=== PATIENT | male | born 1990 | race Caucasian/White ===

== ENCOUNTER 2020-06-02 03:09 | Inpatient (IN) | payer OTHER, SELFPAY ==
--- OUTSIDE RECORDS SUMMARY | 2020-06-02 03:11 | XMS REPORT | Clinical Summary ---
:1990 Author Organization [facility] Address [address] [place] [id number] Care Team Providers Name Role Phone Asked, No Pcp Primary Care Provider Unavailable Allergies No Known Active Allergies Medications Medication Sig Dispensed Refills Start Date End Date Status QUEtiapine (SEROquel) Take 100 mg by 0 Active 100 MG tablet mouth 2 (two) times a day. Active Problems Problem Noted Date Suicidal ideation 01/14/2016 Medical History Medical History Date Comments Schizophrenia (HCC) Seizures (HCC) Drug abuse (HCC) Social History Tobacco Use Types Packs/Day Years Used Date Current Every Day Smoker Cigarettes 1.5 Smokeless Tobacco: Never Used Alcohol Use Drinks/Week oz/Week Comments Yes PT reports MRE: ETOH 3-4 months ago. Drug of choice = meth (smoked) M RE: 09-27-18. Sex Assigned at Date Recorded Not on file Last Filed Vital Signs Not on file Plan of Treatment Health Maintenance Due Date Last Done Comments COVID-19 VACCINE (1 of 2) 2004 INFLUENZA VACCINE 11/30/2019 Results Not on fileafter 06/02/2019 Insurance Payer Benefit Plan / Subscriber ID Effective Dates Phone Addre ss Type Group MEDICAID MEDICAID [id number] 2017-Present [place] [facility] MEDICAID [facility] COMM [id number] 2018-Present HMO [employer] Anna DEBBY y (Home) 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
--- OUTSIDE RECORDS SUMMARY | 2020-06-02 03:15 | XMS REPORT | Continuity of Care Document ---
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 12/14 # /2019 [facility] HEMATOLOGY Lymphocytes 1.3 1.0 - 5.5 12/14 # /2019 [facility] HEMATOLOGY Monocytes # 0.6 0.0 - 0.8 12/14 [facility] TOXICOLOGY Ethanol Lvl <3 12/14 [facility] TOXICOLOGY Etoh (%) <0.003 12/14 [facility] TOXICOLOGY Acetaminoph <2 10 - 20 12/14 Lvl (12/14/19 11:57 PM) [facility] TOXICOLOGY Salicylate 3.4 0.0 - 30.0 12/14 Lvl /2019 [facility] CARDIAC Total CK 815 12 - 191 04/18 [place] ENZYMES /[facility] ELECTROLYT AGAP 14.8 10.0 - 04/18 [facility] ES 20.0 [facility] ELECTROLYT eGFR 93 04/18 Result [facility] /2017 Comment: The Medical eGFR is Center calculated using the CKD-EPI formula. In most young, healthy individuals the eGFR will be >90 mL/min/1.73m2 . The eGFR declines with age. An eGFR of 60-89 may be normal in some populations, particularly the elderly, for whom the CKD-EPI formula has not been extensively validated. Use of the eGFR is not recommended in the following populations:< br/>
Brie viduals with unstable creatinine concentration s, including patients and those with serious co-morbid conditions.<b r/>
Patie nts with extremes in muscle mass or diet.

The data above are obtained from the National Kidney Disease Education Program (NKDEP) which additionally recommends that when the eGFR is used in patients with extremes of body mass index for purposes of drug dosing, the eGFR should be multiplied by the estimated BMI. ELECTROLYT Creatinine 1.07 0.50 - 04/18 [facility] Lvl 1.40 [facility] ELECTROLYT Sodium Lvl 135 135 - 145 04/18 [facility]2017 [facility] ELECTROLYT Potassium 3.8 3.5 - 5.1 04/18 [facility] ELECTROLYT Calcium Lvl 9.3 8.5 - 10.5 04/18 [facility] ELECTROLYT CO2 23 24 - 32 04/18 [facility]2017 [facility] ELECTROLYT Chloride Lvl 101 95 - 109 04/18 [place] [facility] ELECTROLYT Glucose Lvl 94 70 - 99 04/[address] ELECTROLYT BUN 17 7 - 22 04/18 [facility]2017 [facility] HEMATOLOGY MCHC 33.6 32.0 - 04/18 [place] 36.0 [facility] HEMATOLOGY RDW 14.7 11.5 - 04/18 [place] 14.5 [facility] HEMATOLOGY MCH 27.9 27.0 - 04/18 [place] 31.0 [facility] HEMATOLOGY MCV 83.1 80.0 - 04/18 [facility] 94.0 [facility] HEMATOLOGY MPV 9.9 7.4 - 10.4 04/[address] HEMATOLOGY Platelet 165 133 - 450 04/18 [facility]2017 [facility] HEMATOLOGY RBC 4.63 4.70 - 04/18 [place] 6.10 [facility] HEMATOLOGY Hgb 12.9 14.0 - 04/18 [place] 18.0 [facility] HEMATOLOGY Hct 38.4 42.0 - 12/19 [place] 54.0 /2018 [facility] HEMATOLOGY WBC 8.2 3.7 - 10.4 04/18 [facility]2018 [facility] HEMATOLOGY Monocytes # 0.9 0.0 - 0.8 04/18 [facility] s /2018 [facility] HEMATOLOGY Eosinophils 0.1 0.0 - 0.5 04/18 [facility] # /2018 [facility] HEMATOLOGY Lymphocytes 1.1 1.0 - 5.5 04/18 [facility] # /2018 [facility] HEMATOLOGY Neutrophils 6.1 1.5 - 8.1 04/18 [facility] # /2018 [facility] HEMATOLOGY Monocytes 11.1 2.0 - 12.0 04/[address] HEMATOLOGY Eosinophils 0.9 0.0 - 4.0 04/18 [facility] /2018 [facility] HEMATOLOGY Basophils 0.2 0.0 - 1.0 04/[address] HEMATOLOGY Segs 74.9 45.0 - 04/18 [facility] 75.0 [facility] HEMATOLOGY Lymphocytes 12.9 20.0 - 04/18 [facility] 40.0 [facility] TOXICOLOGY Salicylate <1.7 0.0 - 30.0 04/18 [facility] TOXICOLOGY Acetaminoph 3 10 - 20 04/18 [facility] /2018 [facility] CARDIAC Troponin-I <0.02 0.00 - 04/13 ENZYMES 0. [facility] CHEM PANEL Phosphorus 3.7 2.5 - 4.5 04/13 [facility] CHEM PANEL Magnesium 2.1 1.8 - 2.4 04/13 Lvl [facility] ELECTROLYT AGAP 11.0 10.0 - 04/13 ES 20.0 [facility] ELECTROLYT Creatinine 0.90 0.50 - 04/13 [facility] Lvl 1.40 [facility] ELECTROLYT eGFR 114 04/13 [facility] Comment: The [facility] eGFR is calculated using the CKD-EPI formula. In most young, healthy individuals the eGFR will be >90 mL/min/1.73m2 . The eGFR declines with age. An eGFR of 60-89 may be normal in some populations, particularly the elderly, for whom the CKD-EPI formula has not been extensively validated. Use of the eGFR is not recommended in the following populations:< br/>
Brie viduals with unstable creatinine concentration s, including patients and those with serious co-morbid conditions.<b r/>
Patie nts with extremes in muscle mass or diet.

The data above are obtained from the National Kidney Disease Education Program (NKDEP) which additionally recommends that when the eGFR is used in patients with extremes of body mass index for purposes of drug dosing, the eGFR should be multiplied by the estimated BMI. ELECTROLYT Calcium Lvl 8.2 8.5 - 10.5 04/13 ES [facility] ELECTROLYT CO2 25 24 - 32 04/13 ES [facility] ELECTROLYT Chloride Lvl 108 95 - 109 04/13 [facility] ELECTROLYT Potassium 4.0 3.5 - 5.1 04/13 ES Lvl [facility] ELECTROLYT Sodium Lvl 140 135 - 145 04/13 [facility] ELECTROLYT BUN 11 7 - 22 04/13 ES [facility] ELECTROLYT Glucose Lvl 85 70 - 99 04/13 [facility] HEMATOLOGY MCH 27.9 27.0 - 04/13 31.0 [facility] HEMATOLOGY MCHC 33.5 32.0 - 04/13 36.0 [facility] HEMATOLOGY Hct 36.7 42.0 - 04/13 54.0 [facility] HEMATOLOGY MCV 83.1 80.0 - 04/13 94.0 [facility] HEMATOLOGY RBC 4.42 4.70 - 04/13 6.10 [facility] HEMATOLOGY Hgb 12.3 14.0 - 04/13 18.0 [facility] HEMATOLOGY WBC 8.5 3.7 - 10.4 04/13 [facility] HEMATOLOGY MPV 9.5 7.4 - 10.4 04/13 [facility] HEMATOLOGY RDW 14.4 11.5 - 04/13 14.5 [facility] HEMATOLOGY Platelet 164 133 - 450 04/13 [facility] HEMATOLOGY Lymphocytes 1.2 1.0 - 5.5 04/13 # /2017 [facility] HEMATOLOGY Monocytes # 0.6 0.0 - 0.8 04/13 [facility] HEMATOLOGY Eosinophils 0.2 0.0 - 0.5 04/13 # /2017 [facility] HEMATOLOGY Basophils # 0.0 0.0 - 0.2 04/13 [facility] HEMATOLOGY Eosinophils 2.3 0.0 - 4.0 04/13 [facility] HEMATOLOGY Basophils 0.3 0.0 - 1.0 04/13 MH /2017 [facility] HEMATOLOGY Neutrophils 6.5 1.5 - 8.1 04/13 MH # /2017 [facility] HEMATOLOGY Lymphocytes 14.5 20.0 - 04/13 MH 40.0 /2017 [facility] HEMATOLOGY Monocytes 6.7 2.0 - 12.0 04/13 [facility] HEMATOLOGY Segs 76.2 45.0 - 04/13 MH 75.0 [facility] PARATHYROI Ca Norm WB 1.13 1.05 - 04/13 D PROFILE . [facility] PARATHYROI Ca Ion WB 1.17 1.05 - 04/13 D PROFILE 05.25 [facility] URINE AND UA Sq Epi None Seen Few 04/13 STOOL (04/13/18 12:21 AM) /[place] URINE AND UA WBC 1 0 - 5 04/13 STOOL [facility] URINE AND UA RBC 1 0 - 2 04/13 STOOL [facility] URINE AND UA [place] Yeast Occasional None Seen 04/13 STOOL /HPF /HPF /2017 [facility] URINE AND UA Color Ltyellow 04/13 STOOL [facility] URINE AND UA Spec Grav 1.009 <=1.030 04/13 STOOL [facility] URINE AND UA Turbidity Clear Clear 04/13 [facility] (04/13/18 12:21 AM) /[place] URINE AND UA <=1.0 0.1 - 1.0 04/13 STOOL Urobilinogen /2017 [facility] URINE AND UA Ketones Negative Negative 04/13 STOOL *NA* /2017 [facility] (04/13/18 12:21 AM) URINE AND UA Glucose Negative Negative 04/13 STOOL *NA* /2017 [facility] (04/13/18 12:21 AM) URINE AND UA Leuk Est Trace Negative 04/13 STOOL *ABN* /2017 [facility] (04/13/18 12:21 AM) URINE AND UA Nitrite Negative Negative 04/13 [facility]OOL (04/13/18 12:21 AM) /[place] URINE AND UA Bili Negative Negative 04/13 STOOL *NA* /2017 [facility] (04/13/18 12:21 AM) URINE AND UA pH 7.0 5.0 - 8.0 04/13 STOOL /2018 [facility] URINE AND UA Blood Negative Negative 04/13 STOOL (04/13/18 12:21 AM) /[place] URINE AND UA Protein Negative Negative 04/13 STOOL (04/13/18 12:21 AM) /2017 [place] CARDIAC Troponin-I <0.02 0.00 - 04/13 ENZYMES 0.40 [facility] IMMUNOLOGY HIV Ag/Ab Negative Negative 04/13 4th Gen *NA* [facility] (04/12/18 11:42 PM) BACTERIAL MRSA by PCR Negative 04/13 - SEROLOGY (04/12/18 11:18 PM) /2017 [place] DRUG U Odalys Scr Negative Negative 04/12 SCREEN *NA* [facility] (04/12/18 5:22 PM) DRUG U Benzodiaz Negative Negative 04/12 MH SCREEN Scr *NA [facility] (04/12/18 5:22 PM) DRUG U Amph Scr Negative Negative 04/12 SCREEN *NA [facility] (04/12/18 5:22 PM) DRUG U Cocaine Negative Negative 04/12 SCREEN Scr *NA [facility] (04/12/18 5:22 PM) DRUG U Opiate Scr Negative Negative 04/12 SCREEN *NA* [facility] (04/12/18 5:22 PM) DRUG UDS Note See Note 04/12 SCREEN (04/12/18 5:22 PM) /[address] [facility] DRUG U Cannab Scr Negative Negative 04/12 SCREEN *NA* [facility] (04/12/18 5:22 PM) DRUG U Negative Negative 04/12 SCREEN Phencyclidin *NA [facility] e Scr (04/12/18 5:22 PM) CARDIAC Troponin-I 0.02 0.00 - 04/12 ENZYMES 0.40 [facility] CARDIAC Total CK 50 12 - 191 04/12 ENZYMES /2017 [facility] CHEM PANEL eGFR 120 04/12 Result Comment: The [facility] eGFR is calculated using the CKD-EPI formula. In most young, healthy individuals the eGFR will be >90 mL/min/1.73m2 . The eGFR declines with age. An eGFR of 60-89 may be normal in some populations, particularly the elderly, for whom the CKD-EPI formula has not been extensively validated. Use of the eGFR is not recommended in the following populations:< br/>
Brie viduals with unstable creatinine concentration s, including patients and those with serious co-morbid conditions.<b r/>
Patie nts with extremes in muscle mass or diet.

The data above are obtained from the National Kidney Disease Education Program (NKDEP) which additionally recommends that when the eGFR is used in patients with extremes of body mass index for purposes of drug dosing, the eGFR should be multiplied by the estimated BMI. CHEM PANEL AST 17 0 - 37 04/12 [facility] CHEM PANEL ALT 23 0 - 65 04/12 [place] CHEM PANEL Albumin Lvl 4.0 3.5 - 5.0 04/12 [facility] CHEM PANEL Total 7.4 6.4 - 8.4 04/12 [facility] CHEM PANEL Bili Total 0.3 0.2 - 1.3 04/12 [facility] CHEM PANEL Alk Phos 35 39 - 136 04/12 [facility] CHEM PANEL Chloride Lvl 103 95 - 109 04/12 [facility] CHEM PANEL Calcium Lvl 9.4 8.5 - 10.5 04/12 [place] CHEM PANEL CO2 32 24 - 32 04/12 [facility] CHEM PANEL Potassium 4.2 3.5 - 5.1 04/12 MH Lvl [place] CHEM PANEL Sodium Lvl 139 135 - 145 04/12 [place] CHEM PANEL Creatinine 0.80 0.50 - 04/12 Lvl 1.40 /2017 [facility] CHEM PANEL BUN 12 7 - 22 04/12 [facility] CHEM PANEL Glucose Lvl 93 70 - 99 04/12 [facility] CHEM PANEL A/G Ratio 1.2 0.7 - 1.6 04/12 [place] CHEM PANEL Globulin 3.4 2.7 - 4.2 04/12 [facility] CHEM PANEL B/C Ratio 15 6 - 25 04/12 [facility] CHEM PANEL AGAP 8.2 10.0 - 04/12 MH 20.0 [facility] HEMATOLOGY MCHC 32.1 32.0 - 04/12 MH 36.0 /2017 [facility] HEMATOLOGY MCH 27.4 27.0 - 04/12 MH 31.0 /2017 [facility] HEMATOLOGY Platelet 200 133 - 450 04/12 [facility] HEMATOLOGY RDW 14.4 11.5 - 04/12 MH 14.5 /2017 [facility] HEMATOLOGY MPV 9.1 7.4 - 10.4 04/12 /2017 [facility] HEMATOLOGY WBC 14.0 3.7 - 10.4 04/12 /2017 [facility] HEMATOLOGY RBC 5.18 4.70 - 04/12 MH 6.10 [facility] HEMATOLOGY Hgb 14.2 14.0 - 04/12 MH 18.0 /2017 [facility] HEMATOLOGY Hct 44.2 42.0 - 04/12 MH 54.0 /2017 [facility] HEMATOLOGY MCV 85.3 80.0 - 04/12 MH 94.0 /2017 [facility] HEMATOLOGY Basophils 0.2 0.0 - 1.0 04/12 [facility] HEMATOLOGY Eosinophils 0.1 0.0 - 4.0 04/12 [facility] HEMATOLOGY Monocytes 2.7 2.0 - 12.0 04/12 [facility] HEMATOLOGY Monocytes # 0.4 0.0 - 0.8 04/12 [facility] Lymphocytes 0.6 1.0 - 5.5 04/12 MH # /2017 [facility] HEMATOLOGY Neutrophils 13.0 1.5 - 8.1 04/12 MH # /2017 [facility] HEMATOLOGY Lymphocytes 4.1 20.0 - 04/12 40.0 [facility] HEMATOLOGY Eosinophils 0.0 0.0 - 0.5 04/12 MH # /2017 [facility] Basophils # 0.0 0.0 - 0.2 04/12 [facility] RBC Morph Normal 04/12 (04/12/18 4:38 PM) /[address] [facility] HEMATOLOGY Plt Morph Normal 04/12 (04/12/18 4:38 PM) /[address] [facility] HEMATOLOGY Segs 92.9 45.0 - 04/12 75.0 [facility] Large Plt Moderate None Seen 04/12 *ABN* /2017 [facility] (04/12/18 4:38 PM) CARDIAC Total CK 3725 12 - 191 05/01 [place] ENZYMES /2016 Hospital ELECTROLYT AGAP 14.1 10.0 - 05/01 [facility] ES 20.0 Hospital ELECTROLYT B/C Ratio 11 6 - 25 05/01 [facility] ES [facility] ELECTROLYT Globulin 3.2 2.7 - 4.2 05/01 [facility] ES [facility] ELECTROLYT A/G Ratio 1.3 0.7 - 1.6 05/01 Hospital ELECTROLYT Bili Total 0.4 0.2 - 1.3 05/01 Hospital ELECTROLYT eGFR 102 05/01 Result Comment: The Hospital eGFR is calculated using the CKD-EPI formula. In most young, healthy individuals the eGFR will be >90 mL/min/1.73m2 . The eGFR declines with age. An eGFR of 60-89 may be normal in some populations, particularly the elderly, for whom the CKD-EPI formula has not been extensively validated. Use of the eGFR is not recommended in the following populations:< br/>
Brie viduals with unstable creatinine concentration s, including patients and those with serious co-morbid conditions.<b r/>
Patie nts with extremes in muscle mass or diet.

The data above are obtained from the National Kidney Disease Education Program (NKDEP) which additionally recommends that when the eGFR is used in patients with extremes of body mass index for purposes of drug dosing, the eGFR should be multiplied by the estimated BMI. ELECTROLYT Albumin Lvl 4.2 3.5 - 5.0 05/01 Hospital ELECTROLYT Alk Phos 48 39 - 136 05/01 Hospital ELECTROLYT AST 144 0 - 37 05/01 Hospital ELECTROLYT Glucose Lvl 75 70 - 99 05/01 Hospital ELECTROLYT BUN 11 7 - 22 05/01 Hospital ELECTROLYT Potassium 4.1 3.5 - 5.1 05/01 [facility] ELECTROLYT Creatinine 1.00 0.50 - 05/01 [facility] ELECTROLYT Sodium Lvl 140 135 - 145 05/01 Hospital ELECTROLYT Chloride Lvl 106 95 - 109 05/01 Hospital ELECTROLYT CO2 24 24 - 32 05/01 Hospital ELECTROLYT Total 7.4 6.4 - 8.4 05/01 Hospital ELECTROLYT Calcium Lvl 9.1 8.5 - 10.5 05/01 Hospital ELECTROLYT ALT 52 0 - 65 05/01 Hospital HEMATOLOGY MCV 86.0 80.0 - 05/01 [facility] 94.0 [facility] HEMATOLOGY MCH 29.7 27.0 - 05/01 [facility] 31.0 [facility] HEMATOLOGY Hct 41.0 42.0 - 05/01 [facility] 54.0 [facility] HEMATOLOGY RBC 4.77 4.70 - 05/01 [facility] 6.10 [facility] HEMATOLOGY WBC 8.8 3.7 - 10.4 05/01 [facility] HEMATOLOGY Hgb 14.2 14.0 - 05/01 [facility] 18.0 [facility] HEMATOLOGY Platelet 141 133 - 450 05/01 [facility] HEMATOLOGY MCHC 34.5 32.0 - 05/01 [facility] 36.0 [facility] HEMATOLOGY RDW 13.5 11.5 - 05/01 [facility] 14.5 [facility] HEMATOLOGY MPV 8.9 7.4 - 10.4 05/01 [facility] HEMATOLOGY Lymphocytes 21.1 20.0 - 05/01 [facility] 40.0 [facility] HEMATOLOGY Monocytes 11.7 2.0 - 12.0 05/01 [facility] HEMATOLOGY Lymphocytes 1.8 1.0 - 5.5 05/01 [facility] # /2016 Hospital HEMATOLOGY Segs-Bands # 5.7 1.5 - 8.1 05/01 [facility] HEMATOLOGY Eosinophils 1.7 0.0 - 4.0 05/01 [facility] HEMATOLOGY Basophils 0.8 0.0 - 1.0 05/01 [facility] HEMATOLOGY Basophils # 0.1 0.0 - 0.2 05/01 [facility] HEMATOLOGY Monocytes # 1.0 0.0 - 0.8 05/01 [facility] HEMATOLOGY Eosinophils 0.2 0.0 - 0.5 05/01 [facility] # Hospital HEMATOLOGY Segs 64.7 45.0 - 05/01 [facility] 75.0 Hospital TOXICOLOGY Etoh (%) <0.003 04/07 [facility] TOXICOLOGY Ethanol Lvl <3 04/07 [facility] DRUG UDS Note See Note 04/07 [facility] SCREEN *NA* /2015 [facility] (04/06/16 8:43 PM) DRUG U Opiate Scr Negative Negative 04/07 [facility] S[facility]EN *NA* [facility] (04/06/16 8:43 PM) DRUG U Benzodia Negative Negative 04/07 [facility] SCREEN Scr *NA* [facility] (04/06/16 8:43 PM) DRUG U Cocaine Negative Negative 04/07 [facility] SCREEN Scr *NA* [facility] (04/06/16 8:43 PM) DRUG U Phencyc Negative Negative 04/07 [facility] SCREEN Scr *NA* [facility] (04/06/16 8:43 PM) DRUG U Odalys Scr Negative Negative 04/07 [facility] SCREEN *NA* [facility] (04/06/16 8:43 PM) DRUG U Cannab Scr Negative Negative 04/07 [facility] SCREEN *NA* [facility] (04/06/16 8:43 PM) DRUG U Amph Scr Negative Negative 04/07 [facility] SCREEN *NA* [facility] (04/06/16 8:43 PM) URINE AND UA WBC 3-5 /HPF None Seen 04/07 [facility] STOOL /HPF /2015 [facility] URINE AND UA Sq Epi Rare /LPF Few /LPF 04/07 [facility] ST[facility] /2015 [facility] URINE AND UA RBC 0-2 /HPF 0 - 2 04/07 [facility] STOOL /2015 [facility] URINE AND UA Bacteria Occasional None Seen 04/07 [facility] STOOL /HPF /HPF /2015 [facility] URINE AND UA Mucus Few /LPF None Seen 04/07 [facility] STOOL /LPF /2015 [facility] URINE AND UA Glucose Negative Negative 04/07 [facility] (04/06/16 8:43 PM) Height s URINE AND UA Protein Negative Negative 04/07 [facility] (04/06/16 8:43 PM) Height s URINE AND UA pH 5.5 5.0 - 8.0 04/07 [facility] STOOL [facility] URINE AND UA Spec Grav 1.025 <=1.030 04/07 [facility] ST[facility]OL /2015 [facility] URINE AND UA Ketones >=80 mg/dL Negative 04/[address] STOOL mg/dL [facility] URINE AND UA Nitrite Negative Negative 04/07 [facility] (04/06/16 8:43 PM) Height s URINE AND UA 0.2 0.1 - 1.0 04/07 [facility] STOOL Urobilinogen /2015 [facility] URINE AND UA Blood Negative Negative 04/07 [facility] ST[facility] (04/06/16 8:43 PM) s URINE AND UA Bili Small Negative 04/07 STOOL *ABN* /2015 [facility] (04/06/16 8:43 PM) URINE AND UA Leuk Est Trace Negative 04/07 [facility] ST[facility]OL *ABN* /2015 [facility] (04/06/16 8:43 PM) URINE AND UA Turbidity Clear Clear 04/07e r [facility] (04/06/16 8:43 PM) s URINE AND UA Color Yellow Yellow 04/07 [facility] STOOL *NA* /2015 [facility] (04/06/16 8:43 PM) CARDIAC Total CK 598 12 - 191 04/07 ENZYMES [facility] CHEM PANEL eGFR 121 04/07 Comment: The [facility] eGFR is calculated using the CKD-EPI formula. In most young, healthy individuals the eGFR will be >90 mL/min/1.73m2 . The eGFR declines with age. An eGFR of 60-89 may be normal in some populations, particularly the elderly, for whom the CKD-EPI formula has not been extensively validated. Use of the eGFR is not recommended in the following populations:< br/>
Brie viduals with unstable creatinine concentration s, including patients and those with serious co-morbid conditions.<b r/>
Patie nts with extremes in muscle mass or diet.

The data above are obtained from the National Kidney Disease Education Program (NKDEP) which additionally recommends that when the eGFR is used in patients with extremes of body mass index for purposes of drug dosing, the eGFR should be multiplied by the estimated BMI. CHEM PANEL Calcium Lvl 9.2 8.5 - 10.5 04/07 ate [facility] CHEM PANEL Total 7.6 6.4 - 8.4 04/07 Protein [facility] CHEM PANEL CO2 22 24 - 32 04/07 [facility] CHEM PANEL AST 43 0 - 37 04/07 [facility] CHEM PANEL Albumin Lvl 4.4 3.5 - 5.0 04/07 [facility] CHEM PANEL ALT 22 0 - 65 04/07 [facility] CHEM PANEL Chloride Lvl 101 95 - 109 04/07 [facility] CHEM PANEL Creatinine 0.81 0.50 - 12 [facility] Lvl 1.40 /2015 [facility] CHEM PANEL Sodium Lvl 136 135 - 145 12 [facility] CHEM PANEL Potassium 4.4 3.5 - 5.1 04/07 e r Lvl /2015 [facility] CHEM PANEL Bili Total 0.9 0.2 - 1.3 04/07 [facility] CHEM PANEL Alk Phos 34 39 - 136 04/07 [facility] CHEM PANEL Glucose Lvl 63 70 - 99 12 r [facility] CHEM PANEL BUN 14 7 - 22 04/07 [facility] CHEM PANEL AGAP 17.4 10.0 - 1208 [facility] 20.0 /2015 [facility] CHEM PANEL B/C Ratio 17 6 - 25 04/07 [facility] CHEM PANEL Globulin 3.2 2.7 - 4.2 04/07 [facility] CHEM PANEL A/G Ratio 1.4 0.7 - 1.6 04/07 r [facility] HEMATOLOGY Lymphocytes 1.7 1.0 - 5.5 04/[address] # /2015 [facility] HEMATOLOGY Eosinophils 1.0 0.0 - 4.0 04[facility] HEMATOLOGY Basophils 0.4 0.0 - 1.0 04/07 r [facility] HEMATOLOGY Segs-Bands # 4.2 1.5 - 8.1 04/07 ater [facility] HEMATOLOGY Monocytes 9.2 2.0 - 12.0 04/07 [facility] HEMATOLOGY Monocytes # 0.6 0.0 - 0.8 04/[address] [facility] HEMATOLOGY Eosinophils 0.1 0.0 - 0.5 04/[address] # /2015 [facility] HEMATOLOGY Lymphocytes 26.3 20.0 - 12/08 e r 40.0 /2015 [facility] HEMATOLOGY Segs 63.1 45.0 - 1208 Greater 75.0 /2015 [facility] HEMATOLOGY WBC 6.6 3.7 - 10.4 04/07 [facility] HEMATOLOGY Hct 42.9 42.0 - 12/08 54.0 /2015 [facility] HEMATOLOGY RBC 4.86 4.70 - 12/08 Greater 6.10 [facility] HEMATOLOGY Hgb 14.4 14.0 - 04/07 Greater 18.0 /2015 [facility] HEMATOLOGY MCV 88.3 80.0 - 04/07 Greater 94.0 [facility] HEMATOLOGY MCH 29.6 27.0 - 04/07 Greater 31.0 [facility] HEMATOLOGY MCHC 33.6 32.0 - 04/07 Greater 36.0 [facility] HEMATOLOGY MPV 9.4 7.4 - 10.4 04/07 [facility] HEMATOLOGY RDW 13.4 11.5 - 04/07 Greater 14.5 /2015 [facility] HEMATOLOGY Platelet 145 133 - 450 04/07 [facility] TOXICOLOGY Salicylate <1.7 0.0 - 30.0 04/[address] Lvl /2015 [facility] TOXICOLOGY Acetaminoph <2 10 - 20 04/07 [facility] Lvl (04/06/16 8:38 PM) /2015 [facility] s VIRAL - Influ B Negative Negative 04/07 [facility] SEROLOGY (04/06/16 8:38 PM) [facility] VIRAL - Influ A Negative Negative 04/07 [facility] SEROLOGY (04/06/16 8:38 PM) /2015 [facility] CHEMISTRY B/C Ratio 8 6 - 25 12/30 Normal [facility] CHEMISTRY Globulin 2.5 2.0 - 4.0 12/30 Normal [facility]2012 [facility] CHEMISTRY AGAP 16.9 10.0 - 12/30 Normal [facility] 20.0 [facility] CHEMISTRY A/G Ratio 1.6 0.7 - 1.6 12/30 Normal [facility]2012 [facility] CHEMISTRY eGFR 105 12/30 NA <sup>1</sup>R [facility] esult Medical Comment: The [place] eGFR is calculated using the CKD-EPI formula. In most young, healthy individuals the eGFR will be >90 mL/min/1.73m2 . The eGFR declines with age. An eGFR of 60-89 may be normal in some populations, particularly the elderly, for whom the CKD-EPI formula has not been extensively validated. Use of the eGFR is not recommended in the following populations:& lt;br/>
I ndividuals with unstable creatinine concentration s, including patients and those with serious co-morbid conditions.<b r/>
Patie nts with extremes in muscle mass or diet.

The data above are obtained from the National Kidney Disease Education Program (NKDEP) which additionally recommends that when the eGFR is used in patients with extremes of body mass index for purposes of drug dosing, the eGFR should be multiplied by the estimated BMI. CHEMISTRY Glucose Lvl 109 70 - 99 12/30 [place] <sup>3</sup>I T ex nterpretive Medical Data: Adult Center reference range values reflect the clinical guidelines
of the [place] [employer]. CHEMISTRY ALT 26 0 - 65 12/30 Normal [facility] CHEMISTRY Albumin Lvl 3.9 3.5 - 5.0 12/30 Normal [facility] CHEMISTRY Alk Phos 47 39 - 136 12/30 Normal [facility] CHEMISTRY Total 6.4 6.4 - 8.4 12/30 Normal [facility] CHEMISTRY AST 31 0 - 37 12/30 Normal [facility] CHEMISTRY Calcium Lvl 9.0 8.5 - 10.5 12/30 [place] [facility] CHEMISTRY Bili Total 0.4 0.2 - 1.3 12/30 Normal [facility] CHEMISTRY Chloride Lvl 104 95 - 109 12/30 Normal [facility] CHEMISTRY CO2 24 24 - 32 12/30 Normal [facility] CHEMISTRY Sodium Lvl 141 135 - 145 12/30 Normal [facility] CHEMISTRY Potassium 3.9 3.5 - 5.1 12/30 Normal [facility] CHEMISTRY BUN 8 7 - 22 12/30 Normal [facility] CHEMISTRY Creatinine 1.0 0.5 - 1.4 12/30 Normal [facility] HEMATOLOGY MCH 30.2 27.0 - 12/30 Normal [facility] 31.0 [facility] HEMATOLOGY Platelet 134 133 - 450 12/30 Normal [facility] HEMATOLOGY MPV 10.1 7.4 - 10.4 12/30 Normal [facility] HEMATOLOGY RDW 13.4 11.5 - 09 Normal [facility] 14.5 /2012 [facility] HEMATOLOGY Hct 39.4 42.0 - 09 LOW [place] 54.0 [facility] HEMATOLOGY MCV 89.5 80.0 - 12/30 Normal [facility] 94.0 [facility] HEMATOLOGY Hgb 13.3 14.0 - 12/30 LOW [place] 18.0 /2012 [facility] HEMATOLOGY MCHC 33.7 32.0 - 12/30 Normal [place] 36.0 /2012 [facility] HEMATOLOGY WBC 12.5 3.7 - 10.4 12/30 [facility] [place] /2012 [facility] HEMATOLOGY RBC 4.40 4.70 - 12/30 LOW [place] 6.10 /2012 [facility] HEMATOLOGY Lymphocytes 9.4 20.0 - 12/30 LOW [place] 40.0 /2012 [facility] HEMATOLOGY Monocytes 10.8 2.0 - 12.0 09/ Normal [place] /2012 [facility] HEMATOLOGY Segs 79.6 45.0 - 09 [facility] [place] 75.0 /2012 [facility] HEMATOLOGY Eosinophils 0.1 0.0 - 4.0 12/30 [place] [facility] HEMATOLOGY Basophils 0.1 0.0 - 1.0 12/30 Normal [facility] HEMATOLOGY Segs-Bands # 9.9 1.5 - 8.1 12/30 [facility] [place] /2012 [facility] HEMATOLOGY Lymphocytes 1.2 1.0 - 5.5 12/30 [place] # /2012 [facility] HEMATOLOGY Monocytes # 1.3 0.0 - 0.8 12/30 [facility] [place] [facility] CHEMISTRY Lactic Acid 2.0 0.5 - 2.2 12/29 Normal [facility] Lvl [facility] CHEMISTRY UDS Note See Note 5 12/29 Normal <sup>5</sup>I [place] (12/28/2012 22:30:38) /2012 nterpretiv e Medical Data: Drugs Center reported as positive have not been confirmed by a second
method and should be used for medical purposes only. To order
con firmation, contact laboratory.

n ote: Below are cut-off concentration s for all urine drugs of
abuse performed in the laboratory. Some drugs listed in the table
may not be included in this panel.
<b r/>Descriptio n Cut-off concentration
-------- ---
Amphe tamine 1000 ng/mL
Bar biturates 200 ng/mL
S[place]ney zodiazepines 300 ng/mL
Ivan arianna metabolites 300 ng/mL
Opi ates 300 ng/mL
Phe ncyclidine 25 ng/mL
Pro poxyphene 300 ng/mL
Mar ijuana metabolites 50 ng/mL
Met hadone 300 ng/mL
Uri ne alcohol 20 mg/dL CHEMISTRY U Phencyc Negative Negative 12/29 NA [facility] Scr *NA* Medical (12/28/2012 22:30:38) Ce nter CHEMISTRY U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
--- OUTSIDE RECORDS SUMMARY | 2020-06-02 03:18 | XMS REPORT | Continuity of Care Document ---
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 IVP, Drug Form: INJ, Dosing Weight 54.545, kg, PRN, PRN Line Flush, Start date: 12/29/12 4:32:00, Duration: 30 day, Stop date: 01/28/13 4:31:00 potassium 2012-0 No Татьяна Yen 40 mEq, 2 [facility] chloride 12-29 Thi Alanis tab, l 09:31: Route: PO, [place] 00 Drug form: ERTAB, ONCE, Dosing Weight 54.545, kg, Priority: STAT, Start date: 12/29/12 4:31:00, Stop date: 12/29/12 4:31:00 Ativan 2012-0 No [place] 2 mg, 1 [facility] a 12-29 [place] mL, Route: l 06:34: IVP, Drug form: INJ, ONCE, Dosing Weight 54.545, kg, Priority: STAT, Start date: 12/29/12 1:34:00, Stop date: 12/29/12 1:34:00 Ancef 2012-0 No Spencer 1 gm, [facility] 8-31 [place] Route: l 06:16: IVPB, Drug [place] 00 form: PDR/INJ, ONCE, Dosing Weight 54.545, kg, Priority: STAT, Start date: 12/29/12 1:16:00, Stop date: 12/29/12 1:16:00 gentamicin 2012-0 No Spencer 272 mg, Me moria + Sodium 8-31 [place] 6.8 mL, l Chloride 06:16: Route: [place] 0.9% IV 100 00 IVPB, mL ONCE, Dosing Weight 54.545, kg, Priority: STAT, Start date: 12/29/12 1:16:00, Stop date: 12/29/12 1:16:00 lidocaine-e 2012-0 No Spencer 1 ml, Mem oria pi 8-31 [place] Route: l 1%-[id number] 05:42: SUB-Q, Herm Drug Form: SOLN, Dosing Weight 54.545, kg, ONCE, STAT, Start date: 12/29/12 0:42:00, Stop date: 12/29/12 0:42:00 Dilaudid 2012-0 No Spencer 2 mg, 1 Magdaleno pilo 8-31 [place] mL, Route: l 05:41: IV, Drug form: INJ, ONCE, Dosing Weight 54.545, kg, Start date: 12/29/12 0:41:00, Stop date: 12/29/12 0:41:00 Dilaudid 2012-0 No Spencer 1 mg, 0.5 Me moria 8-31 [place] mL, Route: l 04:19: IV, Drug [place] 00 form: INJ, ONCE, Dosing Weight 54.545, kg, Start date: 12/28/12 23:19:00, Stop date: 12/28/12 23:19:00 Sodium 2012-0 No Spencer IV, 1000 Memor ia Chloride 8-31 [place] ml/hr, l 0.9% IV 03:30: Q1H, Start Herm boaz date: 12/28/12 22:30:00, Duration: 2, 1,000 ml morphine No [place] 4 mg, Memori a Sulfate 8-31 [place] Route: l 03:14: IVP, Drug [place] 00 form: INJ, ONCE, Dosing Weight 54.545, kg, Priority: STAT, Start date: 12/28/12 22:14:00, Stop date: 12/28/12 22:14:00 NS 2000 mL No Spencer 2,000 mL, Memoria 8-31 [place] Rate: l 02:58: 2,000 [place] 00 ml/hr, Infuse over: 1 hr, Route: IV, Dosing Weight 54.545 kg, Total Volume: 2,000, Start date: 12/28/12 21:58:00, Duration: 1 doses or times, Stop date: 12/28/12 22:57:00, Bolus DoseBolus Dose Visipaque No Spencer 63 mL, Magdaleno pilo 320mg/ml - [place] Route: l 01:59: IVP, Drug [place] 00 Form: SOLN, kg, ONCALL, STAT, Start date: 12/28/12 20:59:00, Duration: 1 doses or times, Weight = 40 - 59kg -- "To be infused by Radiology Staff ONLY"Weigh t = 40 - 59kg -- "To be infused by Radiology Staff ONLY" morphine No Spencer 4 mg, 1 Magdaleno pilo Sulfate 8-31 [place] mL, Route: l 01:56: IVP, Drug [place] form: INJ, ONCE, kg, Priority: STAT, Start date: 12/28/12 20:56:00, Stop date: 12/28/12 20:56:00 ondansetron No [place] 4 mg, 2 M emoria 8-31 [place] mL, Route: l 01:56: IVP, Drug [place] 00 form: INJ, ONCE, kg, Priority: STAT, Start date: 12/28/12 20:56:00, Stop date: 12/28/12 20:56:00 Saline No Spencer 5 ml, [facility] Flush 0.9% 8-31 [place] Route: l 01:56: IVP, Drug [place] 00 Form: INJ, kg, PRN, PRN Line Flush, Administer at least once every 12 hours, Start date: 12/28/12 20:56:00, Duration: 30 day, Stop date: 01/27/13 20:55:00 Vital Signs Vital Name Observation Time Observation Value Comments Source Systolic (mm Hg) 2019-12-15 06:24:00 Magdaleno rial [place] Diastolic (mm Hg) 2019-12-15 06:24:00 Mem o[facility] [place] Respitory Rate 2019-12-15 06:24:00 Memori al [place] Temperature Oral (F) 2019-12-15 06:24:00 99 F [facility] [place] Respitory Rate 2019-12-15 06:03:00 [facility] [place] Respitory Rate 2019-12-15 04:44:00 [facility] al [place] Systolic (mm Hg) 2019-12-15 04:44:00 Magdaleno rial [place] Diastolic (mm Hg) 2019-12-15 04:44:00 Mem orial [place] Systolic (mm Hg) 2019-12-15 04:25:00 Magdaleno rial [place] Diastolic (mm Hg) 2019-12-15 04:25:00 Mem [facility] [place] Heart Rate 2019-12-15 04:25:00 [facility] [place] Temperature Oral (F) 2019-12-15 04:25:00 99.7 F [facility] [place] Systolic (mm Hg) 2018-04-18 16:28:00 Magdaleno rial [place] Diastolic (mm Hg) 2018-04-18 16:28:00 Mem o[facility] [place] Respitory Rate 2018-04-18 16:28:00 [facility] al [place] Temperature Oral (F) 2018-04-18 16:28:00 98.0 F [facility] [place] Systolic (mm Hg) 2018-04-18 15:12:00 Magdaleno rial [place] Diastolic (mm Hg) 2018-04-18 15:12:00 Mem o[facility] [place] Respitory Rate 2018-04-18 15:12:00 [facility] al [place] Systolic (mm Hg) 2018-04-18 13:26:00 Magdaleno rial [place] Diastolic (mm Hg) 2018-04-18 13:26:00 Mem orial [place] Respitory Rate 2018-04-18 13:26:00 [facility] [place] Weight 2018-04-18 11:55:00 [facility] [place] BMI Calculated 2018-04-18 11:55:00 [facility] [place] Height 2018-04-18 11:55:00 172.72 cm [facility] [place] Temperature Oral (F) 2018-04-18 11:55:00 98.2 F [facility] [place] Heart Rate 2018-04-18 11:55:00 [facility] [place] Heart Rate 2018-04-14 14:00:00 [facility] [place] Temperature Oral (F) 2018-04-14 14:00:00 97.5 F [facility] [place] Systolic (mm Hg) 2018-04-14 14:00:00 Magdaleno rial [place] Diastolic (mm Hg) 2018-04-14 14:00:00 Mem o[facility] [place] Heart Rate 2018-04-14 10:00:00 [facility] [place] Systolic (mm Hg) 2018-04-14 10:00:00 Magdaleno rial [place] Diastolic (mm Hg) 2018-04-14 10:00:00 [facility] o[facility] [place] Temperature Oral (F) 2018-04-14 10:00:00 98.4 F [facility] [place] Heart Rate 2018-04-14 06:00:00 [facility] [place] Systolic (mm Hg) 2018-04-14 06:00:00 Magdaleno rial [place] Diastolic (mm Hg) 2018-04-14 06:00:00 Mem orial [place] Temperature Oral (F) 2018-04-14 06:00:00 98.4 F [facility] [place] Respitory Rate 2018-04-13 18:00:00 [facility] [place] Respitory Rate 2018-04-13 16:00:00 [facility] [place] Respitory Rate 2018-04-13 15:00:00 [facility] [place] BMI Calculated 2018-04-13 04:49:00 [facility] [place] Weight 2018-04-13 04:49:00 [facility] [place] Height 2018-04-13 04:49:00 157.48 cm [facility] [place] Height 2018-04-12 21:49:00 177.8 cm [facility] [place] Weight 2018-04-12 21:49:00 [facility] [place] BMI Calculated 2018-04-12 21:49:00 [facility] [place] Systolic (mm Hg) 2016-05-01 06:38:00 Magdaleno rial [place] Diastolic (mm Hg) 2016-05-01 06:38:00 Mem [facility] [place] Respitory Rate 2016-05-01 06:38:00 [facility] [place] Heart Rate 2016-05-01 06:38:00 [facility] [place] Height 2016-05-01 01:44:00 175.26 cm [facility] [place] BMI Calculated 2016-05-01 01:44:00 [facility] [place] Weight 2016-05-01 01:44:00 [facility] [place] Systolic (mm Hg) 2016-05-01 01:44:00 Magdaleno rial [place] Diastolic (mm Hg) 2016-05-01 01:44:00 Mem orial [place] Heart Rate 2016-05-01 01:44:00 [facility] [place] Respitory Rate 2016-05-01 01:44:00 [facility] [place] Temperature Oral (F) 2016-05-01 01:44:00 98.1 F [facility] [place] Respitory Rate 2016-04-30 13:02:00 [facility] [place] Systolic (mm Hg) 2016-04-30 13:02:00 Magdaleno rial [place] Diastolic (mm Hg) 2016-04-30 13:02:00 Mem o[facility] [place] Heart Rate 2016-04-30 13:02:00 [facility] [place] Temperature Oral (F) 2016-04-30 13:02:00 98.0 F [facility] [place] BMI Calculated 2016-04-30 10:35:00 [facility] [place] Height 2016-04-30 10:35:00 175.26 cm [facility] [place] Weight 2016-04-30 10:35:00 [facility] [place] Respitory Rate 2016-04-30 10:35:00 [facility] [place] Temperature Oral (F) 2016-04-30 10:35:00 98.0 F [facility] [place] Heart Rate 2016-04-30 10:35:00 [facility] [place] Systolic (mm Hg) 2016-04-30 10:35:00 Magdaleno rial [place] Diastolic (mm Hg) 2016-04-30 10:35:00 Mem [facility] [place] Respitory Rate 2016-04-07 16:22:00 [facility] [place] Systolic (mm Hg) 2016-04-07 16:22:00 Magdaleno rial [place] Diastolic (mm Hg) 2016-04-07 16:22:00 [facility] o[facility] [place] Temperature Oral (F) 2016-04-07 16:22:00 98.2 F [facility] [place] Heart Rate 2016-04-07 16:22:00 [facility] [place] Systolic (mm Hg) 2016-04-07 13:26:00 Magdaleno rial [place] Diastolic (mm Hg) 2016-04-07 13:26:00 [facility] [place] Temperature Oral (F) 2016-04-07 13:26:00 98.5 F [facility] [place] Heart Rate 2016-04-07 13:26:00 [facility] [place] Respitory Rate 2016-04-07 13:26:00 [facility] [place] Heart Rate 2016-04-07 12:55:00 [facility] [place] Temperature Oral (F) 2016-04-07 12:55:00 98.5 F [facility] [place] Respitory Rate 2016-04-07 12:55:00 [facility] [place] Systolic (mm Hg) 2016-04-07 12:55:00 Magdaleno rial [place] Diastolic (mm Hg) 2016-04-07 12:55:00 [facility] o[facility] [place] Weight 2016-04-07 01:47:00 [facility] [place] Height 2016-04-07 01:47:00 175.26 cm [facility] [place] BMI Calculated 2016-04-07 01:47:00 [facility] [place] Systolic (mm Hg) 2016-01-14 07:34:00 Magdaleno rial [place] Diastolic (mm Hg) 2016-01-14 07:34:00 [facility] o[facility] [place] Respitory Rate 2016-01-14 07:34:00 [facility] [place] Systolic (mm Hg) 2016-01-14 04:36:00 Magdaleno rial [place] Diastolic (mm Hg) 2016-01-14 04:36:00 Mem o[facility] [place] Respitory Rate 2016-01-14 04:36:00 [facility] al [place] Systolic (mm Hg) 2016-01-14 03:28:00 Magdaleno rial [place] Diastolic (mm Hg) 2016-01-14 03:28:00 Mem o[facility] [place] Respitory Rate 2016-01-14 03:28:00 [facility] [place] Heart Rate 2016-01-14 02:47:00 [facility] [place] Weight 2016-01-14 02:12:00 [facility] [place] BMI Calculated 2016-01-14 02:12:00 [facility] [place] Height 2016-01-14 02:12:00 175.26 cm [facility] [place] Temperature Oral (F) 2016-01-14 02:12:00 98.5 F [facility] [place] Heart Rate 2016-01-14 02:12:00 [facility] [place] Diastolic (mm Hg) 2012-12-31 01:48:00 [facility] [place] Systolic (mm Hg) 2012-12-31 01:48:00 Magdaleno rial [place] Respitory Rate 2012-12-31 01:48:00 [facility] al [place] Heart Rate 2012-12-31 01:48:00 [facility] [place] Temperature Oral (F) 2012-12-31 01:48:00 98.3 F [facility] [place] Diastolic (mm Hg) 2012-12-30 20:21:00 [facility] [place] Systolic (mm Hg) 2012-12-30 20:21:00 Magdaleno rial [place] Respitory Rate 2012-12-30 20:21:00 [facility] al [place] Heart Rate 2012-12-30 20:21:00 [facility] [place] Temperature Oral (F) 2012-12-30 20:21:00 97.5 F [facility] [place] Heart Rate 2012-12-30 16:18:00 [facility] [place] Temperature Oral (F) 2012-12-30 16:18:00 97 F [facility] [place] Respitory Rate 2012-12-30 16:18:00 [facility] [place] Diastolic (mm Hg) 2012-12-30 16:18:00 Mem [facility] [place] Systolic (mm Hg) 2012-12-30 16:18:00 Magdaleno rial [place] Height 2012-12-29 02:00:00 175.26 cm [facility] Weight 2012-12-29 02:00:00 [facility] [place] Procedures This patient has no known procedures. Plan of Care Planned Activity Planned Date Details Comments Source Future Scheduled 2019-11-30 INFLUENZA VACCINE [place] [facility] 00:00:00 [code = INFLUENZA VACCINE] Future Scheduled 2004 COVID-19 VACCINE (1 [place] [facility] 00:00:00 of 2) [code = COVID-19 VACCINE (1 of 2)] Encounters Start End Encounter Admission Attending Care Care Encounter Source Date/Time Date/Time Type Type Clinicians Facility Department ID 2019-12-14 2019-12-15 Outpatient Diego [facility] [id number] 23:20:04 03:22:00 Elio 08 [place] 2019-12-14 2019-12-14 Emergency E [facility] [id number] [facility] 23:20:00 23:20:00 l [place] [facility] 2018-04-18 2018-04-18 Outpatient Shawna [facility] [id number] 05:54:00 10:31:00 Sb Echeverria 2018-04-12 2018-04-14 Outpatient Mena [facility] [id number] 15:46:00 15:30:00 Eddie Deluna 06 2016-04-30 2016-05-01 Outpatient [place] [id number] 19:27:00 01:00:00 Hiram Conrad 05 2016-04-30 2016-04-30 Outpatient [place] [id number] 04:30:00 07:04:00 Santana Gale Jaya 2016-04-06 2016-04-07 Outpatient Constantino [facility] [id number] 19:26:00 10:46:00 Mirta andre 02 Yary 2016-01-13 2016-01-14 Outpatient Jacob [facility] [id number] 21:11:00 03:00:00 Noemi Shi 01 Results Test Description Test Time Test Comments Results Result Comments Source CHEM PANEL 2019-12-15 141 [facility] 04:57:00 CHEM PANEL 2019-12-15 7 [facility] [place] nn 04:57:00 CHEM PANEL 2019-12-15 1.10 [facility] [place] nn 04:57:00 CHEM PANEL 2019-12-15 138 [facility] [place] nn 04:57:00 CHEM PANEL 2019-12-15 3.1 [facility] [place] nn 04:57:00 CHEM PANEL 2019-12-15 106 [facility] [place] nn 04:57:00 CHEM PANEL 2019-12-15 27 [facility] [place] nn 04:57:00 CHEM PANEL 2019-12-15 8.9 [facility] [place] nn 04:57:00 CHEM PANEL 2019-12-15 4.2 [facility] [place] nn 04:57:00 CHEM PANEL 2019-12-15 8.1 [facility] [place] nn 04:57:00 CHEM PANEL 2019-12-15 04:57:00 Test Item Value Reference Range Interpretation Comme nts B/C Ratio (test code = B/C Ratio) 6 1 6-25 [facility] [id number] 04:57:0089[facility]annCHE[facility] PANEL 2019-12-15 04:57:007.6[facility]annCHE[facility] VAYQU9908-23-34 04:57:0023[facility]annCHE[facility] CICNG5163-64-85 04:57:0016[facility]annCHE[facility] GLJJR7040-97-51 04:57:0038[facility]CHE[facility] RDSQT1232-47-74 04:57:000.3[facility]annCHE[facility] HHMYL3170-66-06 04:57:003.4[facility]annCHE[facility] WBJTH9067-28-48 04:57:00 Test Item Value Reference Range Interpretation Comments A/G Ratio (test code = A/G Ratio) 1.2 1 0.7-1.6 [facility] HddfrwgJKKQKZBOAQ1184-86-44 04:57:009.2[facility]annHEMATOLOGY 2019-12-15 04:57:004.56[facility] LpdbtsjQNYIXWUDEH6889-98-15 04:57:0013.3[facility] YvinwmnGSTKSLVZTS0296-55-94 04:57:0039.7[facility] BzhjeddLAGVTHMZMG4038-85-25 04:57:0087.0[facility] CthhpofPDMYHNTZCC1766-55-25 04:57:00 Test Item Value Reference Range Interpretation Comments MCH (test code = MCH) 29.2 pg 27.0-31.0 [facility] JeaspchIYURWPZGZS1687-72-39 04:57:0033.6[facility]annHEMATOLOGY 2019-12-15 04:57:0013.1[facility] HqutpazCUOMZQQDXB0929-85-56 04:57:03221Xziibkae QlrmbuoLABFIGNXFM7939-89-61 04:57:009.8[facility] YnhbsrbYNASQSKVFG1235-76-21 04:57:0079.0[facility] YjckskoBESNBEFTYD6178-38-51 04:57:0013.7[facility] TAUTVOEJMA0551-14-52 04:57:006.5[facility] MmzjswxJCYWWOIWZP2761-08-02 04:57:000.5 [facility] GfdorvwTJHTPAVSMT5257-35-25 04:57:000.3[facility]annHEMATOLOGY 2019-12-15 04:57:007.3[facility] WclyyigMBOUCBKVZM6642-62-51 04:57:001.3[facility] BegsjarDXDISASJFN9761-60-95 04:57:000.6[facility] BypkvznKKKSAKOVKC4398-87-18 04:57:00<3[facility] ZrboqlbXFEMXQGEHE2020-59-93 04:57:00<0.003[facility] UfoahevKHGZZHADHE8333-38-67 04:57:00<2 (12/14/19 11:57 PM)[facility] [place] MWREYHTPWL2399-11-89 04:57:003.4[facility] HermannCARDIAC MDQRVBK7718-89-84 13:17:23360Qkhmuioz ZuyoimyRWBHODSSSXSM3905-63-81 13:17:0014.8[facility] QZVOAFOIBNMN1422-00-71 13:17:0093[facility] MegxrnjTJOJTTPGHKKF5177-00-09 13:17:00 1.07[facility] IplnujaTXIMUSXKUUVM5166-30-67 13:17:93865Jcibhkln [place] CIYBRQARGBSW7675-78-43 13:17:003.8[facility] CqfaykuWHSCCMZZPWFT7185-42-81 13:17:009.3[facility] PtszctfBUDOPJATLCWE1071-06-47 13:17:0023[facility] BFSFBQJARAOR5722-09-74 13:17:50646Wozywxda BtzikcrPCYFXKLEEWBQ1775-99-55 13:17:0094[facility] GsqdtgwKMQSXZNOLLJM6162-46-58 13:17:0017[facility] [place] OFVXPALYQY0845-41-59 13:17:0033.6[facility] NceqzhjJWDCTJJUMF2988-45-40 13:17:00 14.7[facility] DcqsxfeBHMRUHCJAO6573-50-26 13:17:00 Test Item Value Reference Range Interpretation Comments MCH (test code = MCH) 27.9 pg 27.0-31.0 [facility] HoscglmAOFLPTSVXM0978-78-89 13:17:0083.1[facility]annHEMATOLOGY 2018-04-18 13:17:009.9[facility] OcntbthPNEOORAFHN7176-10-30 13:17:22361Hzuchksv UekjqitDFEKTEHGUD3249-68-06 13:17:004.63[facility] TvqwvhwOZDDBRJHNF9509-25-80 13:17:0012.9[facility] JrphuqsQKLJHTWJHV6508-59-73 13:17:0038.4[facility] [place] ZAWVQSGNTW5995-50-11 13:17:008.2[facility] MehnehxMDGPPAMBPO8162-47-88 13:17:000.9 [facility] CcstdttJSBASWEGPU4617-94-06 13:17:000.1[facility]annHEMATOLOGY 2018-04-18 13:17:001.1[facility] ZqossjmCKTQCVKVFR5664-42-80 13:17:006.1[facility] VovflfoRVLUPTBALX1093-15-71 13:17:0011.1[facility] BhvvbpbLESHSDIZUX0373-49-73 13:17:000.9[facility] DxfbizjQEKGGOQQGC3387-76-20 13:17:000.2[facility] [place] KQPILDIONE7233-79-89 13:17:0074.9[facility] IfhmllqAUZUYROLDY7801-60-12 13:17:00 12.9[facility] HnzzcypFPLJMZHUJP5251-57-66 13:17:00<1.7[facility] [place] LBHGYKXIZG3770-90-58 13:17:003[facility] HermannCARDIAC AFKKAXF4865-94-07 10:11:00 <0.02[facility]annCHEM WSPUK4508-96-55 10:11:003.7[facility]annCHEM GBXIL2640-23-58 10:11:002.1[facility] JakjiykPEZXAJISOBOU8028-55-70 10:11:0011.0 [facility] DguanbzMDQXLFIZQRGG0901-47-72 10:11:000.90[facility] HermannELECTROLYTES 2018-04-13 10:11:52649Mbiafxoz TsptfrgTHNICCHDYKQX2500-91-31 10:11:008.2[facility] LfkdkdiLYKYXNHUVOVS6228-09-32 10:11:0025[facility] PpezreuCQCCUDUMZDFZ3489-01-16 10:11:80352Huknbmvq GksmwllITFOSNUJJKWH6401-80-04 10:11:004.0[facility] LCXWLTFNOJCC9737-99-82 10:11:65604Vusqzcyw ZvnsbpcZPJOBOWHLPEB3447-49-09 10:11:0011[facility] LxawstgVWLXKHJYSTLR5419-23-25 10:11:0085[facility] QGSGGRKGSU0829-15-09 10:11:00 Test Item Value Reference Range Interpretation Comments MCH (test code = MCH) 27.9 pg 27.0-31.0 [facility] RrubvrbECXORTBDZM4579-29-11 10:11:0033.5[facility]annHEMATOLOGY 2018-04-13 10:11:0036.7[facility] SvlsegiQGFPVIUKUU9820-61-69 10:11:0083.1[facility] YhdewuqDJLLBIISNX8828-32-91 10:11:004.42[facility] FbdejhlPDBJFCCSVM5768-74-40 10:11:0012.3[facility] JfmenehAQQSYMQELG7770-21-69 10:11:008.5[facility] [place] GFTOQUERZJ6934-31-27 10:11:009.5[facility] VufdkvwJGZJFJHDFY2675-55-10 10:11:00 14.4[facility] XukcpvnPBKXUFWBKI5447-16-52 10:11:81635Qrbfklgy HermannHEMATOLOGY 2018-04-13 10:11:001.2[facility] EkymzjcWRTNWAHKHJ3056-68-52 10:11:000.6[facility] FyeuwjwQPNKGZANIR4528-57-65 10:11:000.2[facility] YsauvbrXDZRMBZAUJ8448-41-17 10:11:000.0[facility] DlxwibwQWZDLOQJAD0963-56-25 10:11:002.3[facility] [place] DTYYQFOUYS6221-82-49 10:11:000.3[facility] RynfxzjTLKNEMXEZX4730-72-26 10:11:006.5 [facility] OdiyzsxZGNDZCKRWZ4707-80-73 10:11:0014.5[facility]annHEMATOLOGY 2018-04-13 10:11:006.7[facility] YtftrcaFPABIMEWUU3211-90-64 10:11:0076.2[facility] HermannPARATHYROID PEEXBXC7351-15-07 10:11:001.13[facility] HermannPARATHYROID UGJBCRB8046-71-89 10:11:001.17[facility]annURINE AND ESHMG5778-95-71 06:21:00 None Seen (04/13/18 12:21 AM)[facility] JUKCE6186-99-95 06:21:001 [facility] POIAV9612-56-83 06:21:001[facility] LSLUL6135-61-22 06:21:00 Test Item Value Reference Range Interpretation Comments UA Spec Grav (test code = UA Spec 1.009 1 Grav) [facility] QYAPF7223-64-05 06:21:00Clear (04/13/18 12:21 AM) [facility] GMBLQ7539-60-47 06:21:00<=1.0[facility] AZKQU8790-60-33 06:21:00Negative *NA*(04/13/18 12:21 AM)[facility] URINE AND NAXOD6844-74-35 06:21:00Negative *NA*(04/13/18 12:21 AM)[facility] ANIEB3266-44-42 06:21:00Trace *ABN*(04/13/18 12:21 AM)[facility] ZSMVA3595-58-35 06:21:00Negative (04/13/18 12:21 AM)[facility] PAJRD6302-29-90 06:21:00Negative *NA*(04/13/18 12:21 AM) [facility] HPGOO3241-52-28 06:21:00 Test Item Value Reference Range Interpretation Comments UA pH (test code = UA pH) 7.0 1 5.0-8.0 [facility] EOXZD5653-09-98 06:21:00Negative (04/13/18 12:21 AM) [facility] VONIP5185-86-61 06:21:00Negative (04/13/18 12:21 AM) [facility] WNYQYEF0038-42-19 05:42:00<0.02[facility] PPRRBJLLQN0667-83-41 05:42:00Negative *NA*(04/12/18 11:42 PM)[facility] BACTERIAL - VVVTIESJ8910-27-69 05:18:00Negative (04/12/18 11:18 PM)[facility] TFXXEY8624-29-04 23:22:00Negative *NA*(04/12/18 5:22 PM)[facility] CDQGOZ5921-35-76 23:22:00Negative *NA*(04/12/18 5:22 PM)[facility] LMEQRY8979-98-64 23:22:00Negative *NA*(04/12/18 5:22 PM)[facility] OZUVYT3765-00-02 23:22:00Negative *NA*(04/12/18 5:22 PM)[facility] VJSODM4539-75-16 23:22:00Negative *NA*(04/12/18 5:22 PM)[facility] RJYLJI2900-76-58 23:22:00See Note (04/12/18 5:22 PM)[facility] [id number] 23:22:00Negative *NA*(04/12/18 5:22 PM)[facility] RBAQDZ4978-39-33 23:22:00Negative *NA*(04/12/18 5:22 PM)[facility] CARDIAC DPNITVD2215-45-78 22:38:000.02[facility] PCKRULF4550-45-47 22:38:0050[facility]annCHEM UYRTB8884-68-72 22:38:69658Tzjyiztu HermannCHEM UWJFN0704-54-04 22:38:0017[facility]annCHE[facility] OAQYI7665-72-49 22:38:0023 [facility] BZNQL1671-98-42 22:38:004.0[facility]annCHE[facility] PANEL 2018-04-12 22:38:007.4[facility]annCHE[facility] WVYJW4012-24-50 22:38:000.3[facility]annCHE[facility] WAKAN8811-59-19 22:38:0035[facility]annCHE[facility] SIYGU7451-62-96 22:38:44675Usyotxfj HermannCHEM VPJMP3919-09-69 22:38:009.4[facility]annCHE[facility] VPTMG2302-35-40 22:38:0032[facility]annCHE[facility] FNZTN6279-99-97 22:38:004.2 [facility] AGTQV1703-84-11 22:38:67174Vgbockrv HermannCHEM PANEL 2018-04-12 22:38:000.80[facility]annCHE[facility] KOMMU7127-35-42 22:38:0012[facility]annCHE[facility] QCKBL0151-65-73 22:38:0093[facility]annCHE[facility] QXPBB7515-80-82 22:38:00 Test Item Value Reference Range Interpretation Comments A/G Ratio (test code = A/G Ratio) 1.2 1 0.7-1.6 [facility] HermannCHEM [id number] 22:38:003.4[facility]annCHE[facility] PANEL 2018-04-12 22:38:00 Test Item Value Reference Range Interpretation Comments B/C Ratio (test code = B/C Ratio) 15 1 6-25 [facility] HermannCHEM [id number] 22:38:008.2[facility]annHEMATOLOGY 2018-04-12 22:38:0032.1[facility] SzkgzzzXRWWWNUHCB9701-45-74 22:38:00 Test Item Value Reference Range Interpretation Comments MCH (test code = MCH) 27.4 pg 27.0-31.0 [facility] LxeszdiIDRNDAIFKC5213-87-42 22:38:07037Vntxsmsd HermannHEMATOLOGY 2018-04-12 22:38:0014.4[facility] LfwjqtqYSEHGNBOYH4103-34-33 22:38:009.1[facility] KrhormyUDGGHIGNEA4928-76-76 22:38:0014.0[facility] QivhfbvQHBLHGZEWY6879-60-84 22:38:005.18[facility] NtfedmpMBKBGRVJTZ9986-31-66 22:38:0014.2[facility] HUCAGKBPGI9555-50-71 22:38:0044.2[facility] ZudtrjjMWTQTFFYQF4080-89-06 22:38:00 85.3[facility] MhltvvuCUXGTBXLTK4648-06-09 22:38:000.2[facility]annHEMATOLOGY 2018-04-12 22:38:000.1[facility] GudsgalHPDDTIPNAL3414-11-02 22:38:002.7[facility] YsvcqdgCEPLXJFDXJ4261-07-35 22:38:000.4[facility] JxhypwrNQLZIGVTWW6421-67-61 22:38:000.6[facility] KmzhoymNKORORVMDG8659-62-69 22:38:0013.0[facility] QAJGAVEBOI2046-41-61 22:38:004.1[facility] QmbcbtcVCVDFFNPSL5217-22-18 22:38:000.0 [facility] SltejutSBEFTWBYQE0643-89-59 22:38:000.0[facility]annHEMATOLOGY 2018-04-12 22:38:00Normal (04/12/18 4:38 PM)[facility] BrjdrtoHLOYABPJRW9418-43-51 22:38:00Normal (04/12/18 4:38 PM)[facility] WmzntbjEYUPBVCBHK8771-34-54 22:38:00 92.9[facility] CubitqcYTGXPQDUVO7229-48-70 22:38:00Moderate *ABN*(04/12/18 4:38 PM)[facility]ARD[facility] UZJSDCG6705-54-77 03:21:420069Pr[facility]kk[facility] RYCOUOCRSUOE9823-55-41 03:21:0014.1[facility] ApndhykPCWXMHTVYGST3235-96-80 03:21:0011[facility] GgjribuPPKBPSNAHQMR6675-19-14 03:21:003.2[facility] FQIRBYBQWAGT3290-17-37 03:21:001.3[facility] VmdjhqaKZNLYDGUICHP4619-45-33 03:21:000.4[facility] XwkvalzAECXUQIVMRDW3336-60-83 03:21:26204Atcrcrqj [place] YJOPDSVWFGPC3177-43-04 03:21:004.2[facility] AipndjbFSZUDTMKQGQI8736-81-92 03:21:0048[facility] WlvywgvSJWTMPGFYQAA4722-28-03 03:21:76907Uehbklgt [place] TCRPQXMOYMDC1840-57-70 03:21:0075[facility] CzlbckvPUHSZZLABEXG3397-88-55 03:21:00 11[facility] BodudywBGCDRIOOWYLC8276-97-95 03:21:004.1[facility] HermannELECTROLYTES 2016-05-01 03:21:001.00[facility] BcqrxvoUSQAGXCJDWGV2251-80-23 03:21:84411 [facility] RniojsyABVBJRGGSQLC6983-72-74 03:21:17455Bemtahrp HermannELECTROLYTES 2016-05-01 03:21:0024[facility] AocnwinKYOWMDOYZYIB4564-46-43 03:21:007.4[facility] GtafzuvWMXVZQLMIDWY7057-80-95 03:21:009.1[facility] ZvujlckSQUMWMOJPJWL2515-15-16 03:21:0052[facility] UenuhueZKKIGFXOHO0294-30-15 03:21:0086.0[facility] [place] AGYXXJHRLB2678-86-54 03:21:00 Test Item Value Reference Range Interpretation Comments MCH (test code = MCH) 29.7 pg 27.0-31.0 [facility] SsscnltXWASXGGETT0219-63-38 03:21:0041.0[facility] HermannHEMATOLOGY 2016-05-01 03:21:004.77[facility] IeazbouLNOYJFATLI9577-93-95 03:21:008.8[facility] WidrivyABDXAPQWRH7407-69-92 03:21:0014.2[facility] StzzhrePQYJBNRAFS3769-20-87 03:21:56451Sjrfkwxe QsfafecUMZHCPIQIC3216-09-52 03:21:0034.5[facility] [place] DXGNRELABZ0917-93-25 03:21:0013.5[facility] LnoznnxUTLTCLRYMN9247-93-41 03:21:00 8.9[facility] DvsrqqvMNCCLGMHDO2061-16-40 03:21:0021.1[facility] HermannHEMATOLOGY 2016-05-01 03:21:0011.7[facility] HrradxhFVDMIMVXMD9720-14-48 03:21:001.8[facility] MpelvdhBZJTUIRFHJ0331-44-53 03:21:005.7[facility] MnkwdgoMURBOEMRJS1512-80-98 03:21:001.7[facility] TsphmedWBEJILPYPD1243-89-17 03:21:000.8[facility] [place] VUNIGJKVHK7175-28-93 03:21:000.1[facility] RpxsibyKCGKEJGXQJ3594-62-51 03:21:001.0 [facility] YcriewrSRBDBIWZEZ0204-39-79 03:21:000.2[facility] HermannHEMATOLOGY 2016-05-01 03:21:0064.7[facility] SugxwirUYRFOWNALO6047-77-97 04:48:00<0.003 [facility] TpkvlorTIINQQVXFQ5165-16-94 04:48:00<3[facility] HermannDRUG SCREEN 2016-04-07 02:43:00See Note *NA*(04/06/16 8:43 PM)[facility] HermannDRUG SCREEN 2016-04-07 02:43:00Negative *NA*(04/06/16 8:43 PM)[facility] HermannDRUG SCREEN 2016-04-07 02:43:00Negative *NA*(04/06/16 8:43 PM)[facility] HermannDRUG SCREEN 2016-04-07 02:43:00Negative *NA*(04/06/16 8:43 PM)[facility] HermannDRUG SCREEN 2016-04-07 02:43:00Negative *NA*(04/06/16 8:43 PM)[facility] HermannDRUG SCREEN 2016-04-07 02:43:00Negative *NA*(04/06/16 8:43 PM)[facility] HermannDRUG SCREEN 2016-04-07 02:43:00Negative *NA*(04/06/16 8:43 PM)[facility] HermannDRUG SCREEN 2016-04-07 02:43:00Negative *NA*(04/06/16 8:43 PM)[facility]annURINE AND STOOL 2016-04-07 02:43:00Negative (04/06/16 8:43 PM)[facility]annURINE AND STOOL 2016-04-07 02:43:00Negative (04/06/16 8:43 PM)[facility]ann[facility] AND STOOL 2016-04-07 02:43:00 Test Item Value Reference Range Interpretation Comments UA pH (test code = UA pH) 5.5 1 5.0-8.0 [facility]annUR[facility] AND TVYDU8536-88-32 02:43:00 Test Item Value Reference Range Interpretation Comments UA Spec Grav (test code = UA Spec 1.025 1 Grav) [facility] DIVHM8574-31-74 02:43:00Negative (04/06/16 8:43 PM) [facility] VNWMW5788-54-65 02:43:000.2[facility] AND UTBQN0412-16-72 02:43:00Negative (04/06/16 8:43 PM)[facility] MYJNH1931-26-92 02:43:00Small *ABN*(04/06/16 8:43 PM)[facility] DFHHM6730-41-20 02:43:00Trace *ABN*(04/06/16 8:43 PM)[facility] DTCPT0856-61-78 02:43:00Clear (04/06/16 8:43 PM)[facility] AND STOOL 2016-04-07 02:43:00Yellow *NA*(04/06/16 8:43 PM)[facility] HermannCARDIAC ENZYMES 2016-04-07 02:38:48565Vxkbbzek HermannCHEM CXPFB5631-22-56 02:38:65086Uwmhzzfx HermannCHEM JSXEV2356-28-80 02:38:009.2[facility] HermannCHEM BBSWQ5014-53-12 02:38:007.6[facility] HermannCHEM PCSUS4478-63-37 02:38:0022[facility] HermannCHEM PYMJP8681-56-28 02:38:0043[facility] HermannCHEM LHHNK9750-30-32 02:38:004.4 [facility] HermannCHEM SJXDC8511-44-14 02:38:0022[facility] HermannCHEM PANEL 2016-04-07 02:38:75296Klmkqofp HermannCHEM PHYVK0213-68-42 02:38:000.81[facility] HermannCHEM RHPQE8409-66-25 02:38:61098Omfplyby HermannCHEM ZHHJU6635-25-76 02:38:004.4[facility] HermannCHEM JSAIV4668-47-82 02:38:000.9[facility] HermannCHEM BGOKW6417-46-67 02:38:0034[facility] HermannCHEM THOVL9417-82-25 02:38:0063 [facility] HermannCHEM HLNWD2601-56-75 02:38:0014[facility] HermannCHEM PANEL 2016-04-07 02:38:0017.4[facility] HermannCHEM JFYPI1162-64-15 02:38:0017[facility] HermannCHEM ZUUWR7906-68-63 02:38:003.2[facility] HermannCHEM NCGDO6674-35-76 02:38:001.4[facility] BprybyuRVDOZYJVYB8926-47-22 02:38:001.7[facility] [place] KTNUGUZBNT2803-29-10 02:38:001.0[facility] RntajlmREAVBPDKTR6337-48-12 02:38:000.4 [facility] AbolhvcVRWZNNBMXL3508-57-00 02:38:004.2[facility] HermannHEMATOLOGY 2016-04-07 02:38:009.2[facility] RrzqzbtSPNGLASSHR5259-40-00 02:38:000.6[facility] WieqnvjJBSZUOEJNS2792-26-79 02:38:000.1[facility] GyxnycbUKNXPDNADV1730-95-62 02:38:0026.3[facility] FozvmifPBQMOLXRDC2665-30-09 02:38:0063.1[facility] [place] BBMIOGLVNJ0784-48-14 02:38:006.6[facility] OotlqbvSJWAREJJGX2029-84-70 02:38:00 42.9[facility] EdsxatkWBIZUCXJLS9979-47-39 02:38:004.86[facility] HermannHEMATOLOGY 2016-04-07 02:38:0014.4[facility] GbvwksbPNUGFPOIPK4360-99-31 02:38:0088.3[facility] DagatduBVEQPDJFNC2865-85-73 02:38:00 Test Item Value Reference Range Interpretation Comments MCH (test code = MCH) 29.6 pg 27.0-31.0 [facility] XtutoazAGMKPGJKOF0889-86-57 02:38:0033.6[facility] HermannHEMATOLOGY 2016-04-07 02:38:009.4[facility] YtetuobRDFDCSNTFP7827-46-39 02:38:0013.4[facility] MzjzkudNQDWRJILSK4623-50-64 02:38:54970Zyopcxfv ZompikdWKCVDPHJZX2170-55-53 02:38:00<1.7[facility] JdyoxxiMHUONOTHTE6316-49-52 02:38:00<2 (04/06/16 8:38 PM)[facility] HermannVIRAL - MVOLYNEB4977-57-43 02:38:00Negative (04/06/16 8:38 PM) [facility] HermannVIRAL - QYODKASX4002-94-05 02:38:00Negative (04/06/16 8:38 PM) [facility] QxzhvptENXCVNITL2871-57-90 06:42:008[facility] IwakukqGWARQIQXH1588-41-68 06:42:002.5[facility] AbuzurtAZVRELHJR2272-48-34 06:42:0016.9[facility] [place] YOARPLIFG6740-78-37 06:42:001.6[facility] AeiktwyFDURTOENY5910-28-19 06:42:68279 [facility] QzqxlngDZVRCJZQR7305-55-07 06:42:05059Bxjhmxkx HermannCHEMISTRY 2012-12-30 06:42:0026[facility] TgkdyvsQTFNLYPOJ9417-09-33 06:42:003.9[facility] OtfnsgpJHFLEGIFK0254-99-04 06:42:0047[facility] OhbjbqkTQGTRKBFV5941-39-85 06:42:006.4[facility] XkuhsjbUTNZFHAUL2592-14-63 06:42:0031[facility] [place] CZYWLPWFR1939-47-82 06:42:009.0[facility] NkgpatmYIAYHKWXT2754-44-43 06:42:000.4 [facility] MlhlrpwHOHZHDVOS7936-75-64 06:42:00893Tphyiswm HermannCHEMISTRY 2012-12-30 06:42:0024[facility] GzspxbjNATOPXPBP1024-58-09 06:42:16617Keoxxnky OdyurxqZCELEGCHI2508-49-48 06:42:003.9[facility] JafpwyjMTPVEWUZH2959-98-66 06:42:008[facility] MnofiihTOYDZMPVM2016-77-13 06:42:001.0[facility] [place] SIZQNWCCON1291-60-65 06:42:00 Test Item Value Reference Range Interpretation Comments MCH (test code = MCH) 30.2 pg 27.0-31.0 N [facility] XnidbqdSYZJZYVQDF1307-63-17 06:42:49160Mwwxiqrq HermannHEMATOLOGY 2012-12-30 06:42:0010.1[facility] BvkceqyYJSGGPIWTN3313-45-47 06:42:0013.4[facility] SfdpqcoJDDNVPYGAI1016-30-58 06:42:0039.4[facility] VoidjojAWKYHVZOIW8915-54-67 06:42:0089.5[facility] QgdfhysSEVNNPZNAT9268-90-08 06:42:0013.3[facility] ZJMQGIXOVD2464-39-36 06:42:0033.7[facility] JlqnywiAWJKQJXOBB7604-19-32 06:42:00 12.5[facility] PmjedilSGUZNSTISE8514-44-76 06:42:004.40[facility] HermannHEMATOLOGY 2012-12-30 06:42:009.4[facility] EulldhtROVXEPRHZY1336-80-73 06:42:0010.8[facility] NfstzuvMKGIHXBLXG0206-03-64 06:42:0079.6[facility] DokklysPXTNRGNZOT7838-05-78 06:42:000.1[facility] VnzvhonOHFYOUBKXF2468-49-19 06:42:000.1[facility] [place] XOTUZLGLOF9685-49-41 06:42:009.9[facility] UgxnpqfKYZBHWARRI9938-50-33 06:42:001.2 [facility] UteqrsuSXNSWHCBXQ6070-25-66 06:42:001.3[facility] HermannCHEMISTRY 2012-12-29 09:00:492.0[facility] EensxekSNEHCJZSE7305-28-43 03:30:38See Note 5(12/28/2012 22:30:38)[facility] VafnhjeEFHYECKRM3111-30-65 03:30:38Negative *NA*(12/28/2012 22:30:38)[facility] BnpcclcUGUOTUMRU2401-37-64 03:30:38Positive *ABN*(12/28/2012 22:30:38)[facility] OodagtjWIOHOAODS3206-99-96 03:30:38Negative *NA*(12/28/2012 22:30:38)[facility] WjhjkpeUZZPYZFKW9911-41-50 03:30:38Negative *NA*(12/28/2012 22:30:38)[facility] KregrrhQAZZKGRTD9477-03-39 03:30:38Negative *NA*(12/28/2012 22:30:38)[facility] ZtgemfsZQRAMORJU0774-68-90 03:30:38Negative *NA*(12/28/2012 22:30:38)[facility] KcoqfdmNCCBPKHAU6714-20-81 03:30:38Negative *NA*(12/28/2012 22:30:38)[facility] GqkovxpOKPZQWMOEV8893-39-41 03:30:38Negative mg/dL *NA*(12/28/2012 22:30:38)[facility] UimrwfaTEKYTRGPEO1081-07-71 03:30:38 Negative *NA*(12/28/2012 22:30:38)[facility] HewvaunJOQQTZXIFN4475-39-03 03:30:38 Negative (12/28/2012 22:30:38)[facility] ZefwtwvPYXFPJUQUU1346-00-36 03:30:380.2 [facility] UiujvxhXWYUWQRRZN5996-01-82 03:30:38Negative (12/28/2012 22:30:38) [facility] CfnjhlgJNHXYTTSBX1160-56-31 03:30:38Negative (12/28/2012 22:30:38) [facility] SaubhqrSBKDVHPWLB4561-39-95 03:30:38 Test Item Value Reference Range Interpretation Comments UA pH (test code = UA pH) 7.0 1 5.0-8.0 N [facility] DwhofobYLUNVLHUWF6650-51-75 03:30:38Negative mg/dL (12/28/2012 22:30:38)[facility] ZqmdrwhAEKOOCKSUY0710-54-56 03:30:38 Test Item Value Reference Range Interpretation Comments UA Spec Grav (test code = UA Spec 1.010 1 N Grav) [facility] OpftqdbWATQJPDKXQ8878-51-72 03:30:38Negative mg/dL (12/28/2012 22:30:38)[facility] SftvnxiTCJNIPLCDP6297-17-15 03:30:38Clear (12/28/2012 22:30:38)[facility] RasyulpHYXTQLHNEP6266-26-70 03:30:38Yellow *NA*(12/28/2012 22:30:38)[facility] LspebfzGMRMUEYLHE1243-98-68 03:30:21None Seen (12/28/2012 22:30:21)[facility] JxjzfsyGAMFKMNTPY5761-67-97 03:30:21Performed (12/28/2012 22:30:21)[facility] OfwqfqpEOBNZUWGFY7271-72-48 03:30:21None Seen (12/28/2012 22:30:21)[facility] MurvuhrIAIBDSFVZK9258-96-19 03:30:210-2 /HPF (12/28/2012 22:30:21)[facility] McbdlpdZYZJGOKTAX4202-06-94 03:30:21None Seen (12/28/2012 22:30:21)[facility] HermannBLOOD BANK BNKGZHC8330-84-04 02:00:00Negative (12/28/2012 21:00:00)[facility] CptnenjRUMGOTUEU6011-46-42 01:56:0084.6[facility] ZbqqvlyEPDIGWLUC3663-43-40 01:56:0037.0[facility] RyerocgHVKRXMDJZ4811-33-24 01:56:00-4[facility] FtawkcrLUDWBCGVN5760-65-76 01:56:0020[facility] [place] WQGAPDMGN0447-69-90 01:56:0049[facility] PwvecgzSPZUSMFBN7820-67-97 01:56:007.41 [facility] YgpqgbdRNLPHKSCX2586-58-30 01:56:0031[facility] HermannCHEMISTRY 2012-12-29 01:56:004.4[facility] NcxloonJEREKXZTS6619-57-86 01:56:0079[facility] ToaxwsvPOZTYWAWH4083-45-39 01:56:000.079[facility] KdsizhvCZTFDMWOX6421-19-18 01:56:0093[facility] GsuixyjGFEAEQGNY0135-64-67 01:56:006[facility] HermannCHEMISTRY 2012-12-29 01:56:001.1[facility] XxmslmaYLWQCSNYB4949-31-60 01:56:65492Bkctxakj JyxefbtDIJNULYWT1333-92-44 01:56:55741Mqvzsuih CwdphydUNVRAWYUK5173-64-27 01:56:80466Ltbmttzv UxdsaxxUAAXBQQJI5373-49-62 01:56:0021[facility] PQBKNZXPM3238-06-34 01:56:003.1[facility] NnlqepoWXPORGHHH8964-46-46 01:56:008.6 [facility] MzxyusnXNVSEODSB6395-03-09 01:56:0019.1[facility] HermannHEMATOLOGY 2012-12-29 01:56:001.3[facility] ElrsazuZGTFSGNGDB0588-15-53 01:56:00 Test Item Value Reference Range Interpretation Comments K-time (test code = K-time) 2.2 min 0.6-2.3 N [facility] MpzqqcbSRGDUGVJPT8627-31-74 01:56:00 Test Item Value Reference Range Interpretation Comments Angle (test code = Angle) 64 degrees 64-80 N [facility] JhmbmxhSBSHJIJLKZ8947-97-31 01:56:00 Test Item Value Reference Range Interpretation Comments Max Amp (test code = Max Amp) 58 mm 52-71 [facility]WHIWLZHR3741-10-94 01:56:00 Test Item Value Reference Range Interpretation Comments R-time (test code = R-time) 0.8 min 0.4-0.7 [facility] TylerBonbghzUCMCNXZJCC1358-83-71 01:56:00 Test Item Value Reference Range Interpretation Comments Split Point (test code = Split Point) 0.6 min [facility] TafkdxaOQJJZUMJZB7008-89-88 01:56:00 Test Item Value Reference Range Interpretation Comments ACT (TEG) (test code = ACT (TEG)) 121 s 86-118 H [facility] VmdlrnkICXJQNEMTQ8312-02-40 01:56:006.9[facility] HermannHEMATOLOGY 2012-12-29 01:56:0014.8[facility] VcbalesLXWAGOJDIQ8381-86-63 01:56:005.05[facility] XqmjfnlNZWFKPUHCU9284-18-81 01:56:0044.5[facility] KdujhplVCBPULGKHU5781-63-71 01:56:0011.8[facility] CqbzaaxINBBHYYOFB4209-38-75 01:56:009.2[facility] [place] UFDIBBGKHN5950-54-85 01:56:0033.2[facility] CsbtcqtPVTWNARPEV0529-23-46 01:56:00 88.1[facility] ZetsbluKDNLPMKHSM2037-77-92 01:56:00 Test Item Value Reference Range Interpretation Comments MCH (test code = MCH) 29.3 pg 27.0-31.0 N [facility] EqyraufDCLVJOWPDY5900-88-53 01:56:08663Hughedmx HermannHEMATOLOGY 2012-12-29 01:56:0012.4[facility] ZqtcrvoMTLXKLONAT3786-65-41 01:56:0014.0[facility] NwapngvJIVBHEZFGM0493-17-75 01:56:00Normal (12/28/2012 20:56:00)[facility] [place] GXLLYYCCTX9968-00-85 01:56:006.0[facility] QbourdfAKXNOELHEI0324-48-77 01:56:00 72.0[facility] MmbmoqsYBRMLKYOGG4523-94-27 01:56:000.9[facility] HermannHEMATOLOGY 2012-12-29 01:56:001.7[facility] NfjxsxkFAJAHLFYXD9187-04-45 01:56:009.2[facility] QsmlolsSIGVUWLNBU0218-73-89 01:56:008.0[facility] CrwyaobOERQPRJRIJ3044-05-71 01:56:000.0[facility] BcofqjyXLMNZRNRSB8221-00-45 01:56:00Normal (12/28/2012 20:56:00)[facility]
[2020-06-02] MEDS ORDERED: NA CHLORIDE 0.9% 1,000 ML ONE (03:40)
[2020-06-02 03:47] LABS: Absolute Lymphocytes (CBC) 1.6 K/uL (0.7-4.9); Basophils % 1.1 % (0-1.3); Hematocrit 47.3 % (39.6-49.0); Lymphocytes % 24.2 % (15.3-44.8); MPV 10.3 fL (7.6-11.3); RBC Red Blood Cell Count 5.51 M/uL (4.33-5.43)
[2020-06-02 03:56] LABS: Magnesium 2.1 mg/dL (1.8-2.4); Potassium 3.9 mmol/L (3.5-5.1); Protime INR 0.95
[2020-06-02] MEDS ORDERED: FOLIC ACID 5 MG/ML VIAL ONE (04:26)
[2020-06-02] MEDS ORDERED: ASPIRIN 81 MG CHEWABLE TABLET ONE (04:26)
--- NOTE | 2020-06-02 04:29 | ER ---
Nurse's Notes [facility] Name: Alex Abbott Age: 30 yrs Sex: Male : 1990 Arrival Date: 06/02/2020 Time: 03:13 Bed 7 Private MD: Diagnosis: Weakness;Paresthesia of skin;Acute, ischemic CVA Presentation: 06/02 03:15 Chief complaint: EMS states: complaining of right sided weakness, positive right arm rr5 drift started 35 minutes ago around 0230H. 03:15 Coronavirus screen: Client denies travel out of the [place] in the last 14 days. At this rr5 time, the client does not indicate any symptoms associated with coronavirus-19. Ebola Screen: Patient negative for fever greater than or equal to 101.5 degrees Fahrenheit, and additional compatible Ebola Virus Disease symptoms Patient denies exposure to infectious person. Patient denies travel to an Ebola-affected area in the 21 days before illness onset. Initial Sepsis Screen: Does the patient meet any 2 criteria? No. Patient's initial sepsis screen is negative. Does the patient have a suspected source of infection? No. Patient's initial sepsis screen is negative. Risk Assessment: Do you want to hurt yourself or someone else? Patient reports no desire to harm self or others. Note went to sleep around 530PM as verbalized by patient. Onset of symptoms was June 01, 2020 at 17:30. Care prior to arrival: IV initiated. 22 GA, in the left hand, Glucose check: 69. 03:15 Method Of Arrival: EMS: [facility] rr5 03:15 Acuity: ROCIO 2 rr5 Historical: - Allergies: 03:15 No Known Allergies; rr5 - PMHx: 03:15 Anxiety; Bipolar disorder; Depression; Pneumonia; Schizophrenia; ADD/ADHD; drug rr5 overdose; - PSHx: 03:15 None; rr5 - Immunization history:: Adult Immunizations unknown. - Social history:: Smoking status: Patient reports the use of cigarette tobacco products, cigars, Patient uses alcohol, occasionally. street drugs, Methamphetamine (Meth) synthetic smoke. - Family history:: not pertinent. - Hospitalizations: : No recent hospitalization is reported. Screenin:16 Abuse screen: Denies threats or abuse. Denies injuries from another. Nutritional rr5 screening: No deficits noted. Tuberculosis screening: No symptoms or risk factors identified. Fall Risk IV access (20 points). Total Childress Fall Scale indicates No Risk (0-24 pts). Assessment: 03:29 General: Appears in no apparent distress. Behavior is cooperative. Pain: Denies pain. ea Neuro: Level of Consciousness is awake, Oriented to person, place, time, Speech is normal, slight droop on right side. Cardiovascular: Patient's skin is warm and dry. Respiratory: Airway is patent Respiratory effort is even, unlabored, Respiratory pattern is regular, symmetrical. Derm: Skin is pink, warm \T\ dry. 03:29 Neuro: Reports numbness in face right face, right arm and right leg. GI: No signs rr5 and/or symptoms were reported involving the gastrointestinal system. : No signs and/or symptoms were reported regarding the genitourinary system. EENT: No signs and/or symptoms were reported regarding the EENT system. Musculoskeletal: Capillary refill < 3 seconds, Reports weakness in right arm and right leg. 03:31 Reassessment: pt taken to CT. ea 03:55 Reassessment: Patient appears in no apparent distress at this time. Patient is alert, rr5 oriented x 3, equal unlabored respirations, skin warm/dry/pink. for admission reassess by ED provider, patient agreed for the plan of care. Vital Signs: 03:15 BP 125 / 88; Pulse 72; Resp 16; Temp 98.4; Pulse Ox 99% ; Weight 61.23 kg; Height 5 ft. rr5 9 in. (175.26 cm); Pain 0/10; 04:30 BP 126 / 89; Pulse 79; Resp 17; Pulse Ox 98% ; rr5 05:29 BP 115 / 80; Pulse 61; Resp 16; Pulse Ox 98% ; rr5 03:15 Body Mass Index 19.94 (61.23 kg, 175.26 cm) rr5 NIH Stroke Scale Scores: 03:19 NIHSS Score: 3 manager of international Course: 03:13 Patient arrived in ED. em 03:14 Nikita Stanford MD is Attending Physician. rn 03:15 Arm band placed on right wrist. rr5 03:15 Maintain EMS IV. Dressing intact. Good blood return noted. Site clean \T\ dry. Gauge \T\ rr 5 site: G22 left hand. 03:17 Patient has correct armband on for positive identification. Placed in gown. Bed in low rr5 position. Call light in reach. Side rails up X2. lunchroom monitor on. Pulse ox on. NIBP on. 03:19 Bryce Cuellar, RN is Primary Nurse. rr5 03:23 Triage completed. rr5 03:25 EKG done, by ED staff, reviewed by Nikita Stanford MD. rr5 03:33 Stroke CXR 1 View In Process Unspecified. EDMS 03:55 CT Stroke Brain w/o Contrast In Process Unspecified. EDMS 03:55 CT Head Angio In Process Unspecified. EDMS 03:56 CT Neck Angio In Process Unspecified. EDMS 04:25 Alex Muñiz DO is Hospitalizing Provider. rn 05:29 No provider procedures requiring assistance completed. Patient admitted, IV remains in rr5 place. intact, No redness/swelling at site. Administered Medications: 03:31 Drug: NS 0.9% 1000 ml Route: IV; Rate: 1000 ml; Site: left hand; rr5 04:15 Drug: foLIC Acid 1 mg Route: IVPB; Site: left hand; rr5 04:22 Drug: Aspirin Chewable Tablet 324 mg Route: PO; rr5 05:45 Drug: PlaVIX 75 mg Route: PO; em Outcome: 04:26 Decision to Hospitalize by Provider. rn 05:37 Admitted to Tele accompanied by nurse, via wheelchair, room 207, with chart, Report em called to VINCENT Jeronimo 05:37 Condition: stable 05:37 Instructed on the need for admit, Demonstrated understanding of instructions. 05:51 Patient left the ED. em NIH Stroke Scale - NIH Stroke Score Date: 06/02/2020 Time: 03:19 Total Score = 3 1a. Level of Consciousness (LOC) - 0(Alert) 1b. Level of Consciousness (LOC) (Year \T\ Age) - 0(Both) 1c. LOC Commands (Open \T\ Closes Eyes/Lunchroom Mother) - 0(Both) 2. Best Gaze (Lateral Gaze Paresis) - 0(Normal) 3. Visual Field Loss - 0(No visual loss) 4. Facial Palsy - 1(Minor Paralysis) 5a. Left Arm: Motor (10-second hold) - 0(No drift) 5b. Right Arm: Motor (10-second hold) - 1(Drift) 6a. Left Leg: Motor (5-second hold - always test supine) - 0(No drift) 6b. Right Leg: Motor (5-second hold - always test supine) - 0(No drift) 7. Limb Ataxia (finger/nose \T\ heel/estrada - test with eyes open) - 0(Absent) 8. Sensory Loss (pinprick arms/legs/face) - 1(Mild to moderate loss) 9. Best Language: Aphasia (description/naming/reading) - 0(No aphasia) 10. Dysarthria (speech clarity - read or repeat words) - 0(Normal) 11. Extinction and Inattention (visual/tactile/auditory/spatial/personal) - 0(No abnormality) Initials: rn Signatures: Dispatcher [employer] Laz Carrion, RN RN Nikita Herrera MD MD rn Antunez, Elena RN Bryce Landis ea, RN RN rr5 Corrections: (The following items were deleted from the chart) 05:30 05:29 BP 115 / 80; Pulse 75bpm; Resp 16bpm; Pulse Ox 98%; rr5 rr5
--- NOTE | 2020-06-02 04:29 | EDPHYS ---
Physician Documentation [facility] Name: Alex Abbott Age: 30 yrs Sex: Male : 1990 Arrival Date: 06/02/2020 Time: 03:13 Bed 7 Private MD: ED Physician Nikita Stanford HPI: 06/02 03:19 This 30 yrs old Male presents to ER via Unassigned with complaints of rn weakness. 03:19 The patient presents to the emergency department with weakness of the right upper rn extremity, right lower extremity, right side of the face, paresthesias of the right lower extremity, right upper extremity, right side of the face. Onset: The symptoms/episode began/occurred at an unknown time. Reports having trouble sleeping, finally went to sleep around 5pm yesterday, woke up 30 min-1 hour ago with right sided weakness and numbness. No head injury. No recent trauma. No fever/neck pain/headache. Denies recent drugs or medication. . 03:19 Associated signs and symptoms: Pertinent negatives: fever, headache, neck stiffness, rn seizure, syncope, blurred vision, double vision, visual field changes, loss of vision. Severity of symptoms: At their worst the symptoms were mild in the emergency department the symptoms are unchanged. The patient has not experienced similar symptoms in the past. Historical: - Allergies: 03:15 No Known Allergies; rr5 - PMHx: 03:15 Anxiety; Bipolar disorder; Depression; Pneumonia; Schizophrenia; ADD/ADHD; drug rr5 overdose; - PSHx: 03:15 None; rr5 - Immunization history:: Adult Immunizations unknown. - Social history:: Smoking status: Patient reports the use of cigarette tobacco products, cigars, Patient uses alcohol, occasionally. street drugs, Methamphetamine (Meth) synthetic smoke. - Family history:: not pertinent. - Hospitalizations: : No recent hospitalization is reported. ROS: 03:19 Constitutional: Negative for fever, chills, and weight loss, Eyes: Negative for injury, rn pain, redness, and discharge, Neck: Negative for injury, pain, and swelling, Cardiovascular: Negative for chest pain, palpitations, and edema, Respiratory: Negative for shortness of breath, cough, wheezing, and pleuritic chest pain, Abdomen/GI: Negative for abdominal pain, nausea, vomiting, diarrhea, and constipation, Back: Negative for injury and pain, : Negative for injury, bleeding, discharge, and swelling, MS/Extremity: Negative for injury and deformity, Skin: Negative for injury, rash, and discoloration, Neuro: Negative for headache, + right sided weakness and tingling. Exam: 03:19 Constitutional: Thin male, no acute distress, grinding teeth and constantly yawning. rn Head/Face: Normocephalic, atraumatic. Eyes: Pupils equal round and reactive to light, extra-ocular motions intact. Lids and lashes normal. Conjunctiva and sclera are non-icteric and not injected. Cornea within normal limits. Periorbital areas with no swelling, redness, or edema. ENT: dry MM Cardiovascular: Regular rate and rhythm. No pulse deficits. Respiratory: No increased work of breathing, no retractions or nasal flaring. Abdomen/GI: soft, non-tender Skin: Warm, dry MS/ Extremity: Pulses equal, no cyanosis. Neuro: Awake and alert, GCS 15, oriented to person, place, time, and situation. + mild right lower facial droop, + right facial decreased sensation, RUE with mild drift and decreased sensation but equal novelty maker strength. RLE and LLE 5/5 strength. No tongue deviation. Visual jeong intact and EOMI. Vital Signs: 03:15 BP 125 / 88; Pulse 72; Resp 16; Temp 98.4; Pulse Ox 99% ; Weight 61.23 kg; Height 5 ft. rr5 9 in. (175.26 cm); Pain 0/10; 04:30 BP 126 / 89; Pulse 79; Resp 17; Pulse Ox 98% ; rr5 05:29 BP 115 / 80; Pulse 61; Resp 16; Pulse Ox 98% ; rr5 03:15 Body Mass Index 19.94 (61.23 kg, 175.26 cm) rr5 NIH Stroke Scale Scores: 03:19 NIHSS Score: 3 rn MDM: 03:14 Patient medically screened. rn 03:28 ED course: Pt asked multiple times, states 5-6pm yesterday is last known normal. . rn 04:13 ED course: Not TPA candidate 2/2 onset, last known normal around 5PM yesterday, now rn approx 11 hours ago, ct shows acute/subacute stroke on left side, no bleed, no evidence of LVO on ct angio, will give aspirin/folic acid, and admit for further stroke care. 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 . 04:22 Data reviewed: vital signs, nurses notes, lab test result(s), EKG, radiologic studies, rn CT scan, and as a result, I will admit patient. Counseling: I had a detailed discussion with the patient and/or guardian regarding: the historical points, exam findings, and any diagnostic results supporting the discharge/admit diagnosis, lab results, radiology results, the need for further work-up and treatment in the hospital. Admission orders: after a detailed discussion of the patient's condition and case, the admit orders are written by me. ED course: Will admit to hospitalist service for stroke w/u. 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 CTA head and neck without large vessel occlusion or stenosis. . 06/02 03:16 Order name: CPK rn 06/02 03:16 Order name: Magnesium rn 06/02 03:16 Order name: Basic Metabolic Panel rn 06/02 03:16 Order name: CBC with Diff rn 06/02 03:16 Order name: Protime (+inr) rn 06/02 03:16 Order name: Ptt, Activated rn 06/02 03:16 Order name: Urine Drug Screen rn 06/02 03:16 Order name: ETOH Level; Complete Time: 04:26 rn 06/02 03:17 Order name: Creatine Phosphokinase; Complete Time: 04:00 EDMS 06/02 03:17 Order name: Magnesium; Complete Time: 04:00 EDMS 06/02 03:17 Order name: Basic Metabolic Panel; Complete Time: 04:00 EDMS 06/02 03:17 Order name: CBC with Automated Diff; Complete Time: 04:00 EDMS 06/02 03:17 Order name: Protime (+INR); Complete Time: 04:26 EDMS 06/02 03:17 Order name: PTT, Activated Partial Thromb; Complete Time: 04:26 EDMS 06/02 03:16 Order name: CT Stroke Brain w/o Contrast rn 06/02 03:16 Order name: Stroke CXR 1 View rn 06/02 03:16 Order name: EKG; Complete Time: 03:19 rn 06/02 03:16 Order name: Accucheck; Complete Time: 03:20 rn 06/02 03:16 Order name: Cardiac monitoring; Complete Time: 03:20 rn 06/02 03:16 Order name: EKG - Nurse/Tech; Complete Time: 03:20 rn 06/02 03:16 Order name: IV Saline Lock; Complete Time: 03:20 rn 06/02 03:16 Order name: CT Head Angio rn 06/02 03:16 Order name: CT Neck Angio rn 06/02 03:28 Order name: Glucose, Ancillary Testing; Complete Time: 04:00 EDMS 06/02 05:30 Order name: SARS-COV-2 RT PCR EDMS 06/02 03:16 Order name: Labs collected and sent; Complete Time: 03:20 rn 06/02 03:16 Order name: NPO; Complete Time: 03:20 rn 06/02 03:16 Order name: O2 Per Protocol; Complete Time: 03:20 rn 06/02 03:16 Order name: O2 Sat Monitoring; Complete Time: 03:20 rn 06/02 03:16 Order name: Stroke Swallow Screen; Complete Time: 03:20 rn Administered Medications: 03:31 Drug: NS 0.9% 1000 ml Route: IV; Rate: 1000 ml; Site: left hand; rr5 04:15 Drug: foLIC Acid 1 mg Route: IVPB; Site: left hand; rr5 04:22 Drug: Aspirin Chewable Tablet 324 mg Route: PO; rr5 05:45 Drug: PlaVIX 75 mg Route: PO; em Disposition: 06/02/20 04:26 Hospitalization ordered by Alex Muñiz for Inpatient Admission. Preliminary diagnosis are Weakness, Paresthesia of skin, Acute, ischemic CVA. - Bed requested for Telemetry/MedSurg (Inpatient). - Status is Inpatient Admission. em - Condition is Stable. - Problem is new. - Symptoms are unchanged. NIH Stroke Scale - NIH Stroke Score Date: 06/02/2020 Time: 03:19 Total Score = 3 1a. Level of Consciousness (LOC) - 0(Alert) 1b. Level of Consciousness (LOC) (Year \T\ Age) - 0(Both) 1c. LOC Commands (Open \T\ Closes Eyes/Real Estate Leasing Manager) - 0(Both) 2. Best Gaze (Lateral Gaze Paresis) - 0(Normal) 3. Visual Field Loss - 0(No visual loss) 4. Facial Palsy - 1(Minor Paralysis) 5a. Left Arm: Motor (10-second hold) - 0(No drift) 5b. Right Arm: Motor (10-second hold) - 1(Drift) 6a. Left Leg: Motor (5-second hold - always test supine) - 0(No drift) 6b. Right Leg: Motor (5-second hold - always test supine) - 0(No drift) 7. Limb Ataxia (finger/nose \T\ heel/estrada - test with eyes open) - 0(Absent) 8. Sensory Loss (pinprick arms/legs/face) - 1(Mild to moderate loss) 9. Best Language: Aphasia (description/naming/reading) - 0(No aphasia) 10. Dysarthria (speech clarity - read or repeat words) - 0(Normal) 11. Extinction and Inattention (visual/tactile/auditory/spatial/personal) - 0(No abnormality) Initials: rn Signatures: Dispatcher [employer] [facility] Esther Manuel RN RN dw Munoz, Edgar, RN RN em Nieto, Roman, MD MD rn Attema, Vern, RESEARCH KENNEL SUPERVISOR-C RESEARCH KENNEL SUPERVISOR-Cla1 Bryce Cuellar RN RN rr5 Corrections: (The following items were deleted from the chart) 04:41 04:26 CORONAVIRUS+MR.LAB.BRZ ordered. [facility] 05:05 04:26 Hospitalization Ordered by Alex Muñiz DO for Inpatient Admission. dw Preliminary diagnosis is Weakness; Paresthesia of skin; Acute, ischemic CVA. Bed requested for Telemetry/MedSurg (Inpatient). Status is Inpatient Admission. Condition is Stable. Problem is new. Symptoms are unchanged. rn 05:51 05:05 06/02/2020 04:26 Hospitalization Ordered by Alex Muñiz DO for em Inpatient Admission. Preliminary diagnosis is Weakness; Paresthesia of skin; Acute, ischemic CVA. Bed requested for Telemetry/MedSurg (Inpatient). Status is Inpatient Admission. Condition is Stable. Problem is new. Symptoms are unchanged. dw
--- NOTE | 2020-06-02 04:51 | P.HP ---
Certification for Inpatient Patient admitted to: Inpatient With expected LOS: >2 Midnights Patient will require the following post-hospital care: None Practitioner: I am a practitioner with admitting privileges, knowledge of patient current condition, hospital course, and medical plan of care. Services: Services provided to patient in accordance with Admission requirements found in Title 42 Section 412.3 of the Code of Federal Regulations <Vern Baker - Last Filed: 06/02/20 04:47> Patient admitted to: Inpatient <Alex Muñiz - Last Filed: 06/02/20 12:34> Patient History Date of Service: 06/02/20 Primary Care Provider: none Reason for admission: Ischemic CVA History of Present Illness: 30-year-old male with history of bipolar disorder, schizophrenia, anxiety, amphetamine abuse presents the emergency department for right-sided weakness. Patient reports going to bed at approximately 5:00 p.m. last night feeling well and awakening around 2:30 a.m. with right-sided facial droop, right-sided arm/leg weakness. Patient called 911 and was transported to the emergency department, labs unremarkable, CT without contrast demonstrates subtle area of decreased attenuation in the posterior limb of the left internal capsule possibly representing an area of acute ischemic change. Additional area of focal decreased attenuation in the right atkinson radiata adjacent to the caudate nucleus which may represent an area of chronic microangiopathic or old lacunar infarct. Patient out of the window for t-PA, CT angio head and neck performed to determine if patient was candidate for intra-arterial intervention, CT angio negative for any acute findings. ED provider wishes to admit patient for further evaluation and management. When I saw the patient in the ER he was awake, alert, oriented x3. Patient with noted right-sided facial droop, mild decrease in strength of the right upper and lower extremity. Patient given aspirin, folic acid in the emergency department will admit for further evaluation and management. - Past Medical/Surgical History Diabetic: No -: multiple suicide attempts -: depression -: bipolar -: schizophrenia -: paranoia -: head surgery -: arm surgery Psychosocial/ Personal History: Patient currently unemployed, lives alone. - Family History Family History: Reviewed- Non-Contributory - Social History Smoking Status: Former smoker Alcohol use: No CD- Drugs: No Caffeine use: Yes Place of Residence: Home <Vern Baker - Last Filed: 06/02/20 04:47> Date of Service: 06/02/20 <Alex Muñiz - Last Filed: 06/02/20 12:34> Allergies lithium Adverse Reaction (Verified 02/09/15 23:46) Shortness of breath quetiapine fumarate [From Seroquel] Adverse Reaction (Verified 02/09/15 23:46) Shortness of breath risperidone [From Risperdal] Adverse Reaction (Verified 02/09/15 23:46) Shortness of breath ziprasidone HCl [From Geodon] Adverse Reaction (Verified 02/09/15 23:46) Shortness of breath ziprasidone mesylate [From Geodon] Adverse Reaction (Verified 02/09/15 23:46) Shortness of breath NKDA Allergy (Uncoded 06/10/15 12:00) Unknown No Known Allergies Allergy (Uncoded 07/26/15 18:39) Unknown ziprasidone HCl Allergy (Uncoded 06/10/15 12:00) Unknown Home Medications: NK [No Home Meds] 02/08/15 Review of Systems 10-point ROS is otherwise unremarkable Neurological: Weakness, Change in Speech, As per HPI <Vern Baker - Last Filed: 06/02/20 04:47> Physical Examination - Physical Exam General: Alert, In no apparent distress, Oriented x3 HEENT: Atraumatic, Normocephalic, PERRLA Neck: Supple Respiratory: Clear to auscultation bilaterally, Normal air movement Cardiovascular: Regular rate/rhythm, Normal S1 S2, No murmurs Capillary refill: <2 Seconds Gastrointestinal: Normal bowel sounds, Soft and benign Musculoskeletal: No contractures, No erythema, No tenderness Integumentary: No significant lesion, No tenderness/swelling, No erythema Neurological: Normal strength at 5/5 x4 extr (4/5 strength to right upper and lower extremities), Normal tone, Sensation intact, Other (Right-sided facial droop noted), Abnormal speech (Mild slurred speech), Abnormal affect - Studies Laboratory Data (last 24 hrs) 06/02/20 03:19: PT 11.2, INR 0.95, APTT 27.3 06/02/20 03:19: WBC 6.50, Hgb 15.6, Hct 47.3, Plt Count 168 06/02/20 03:19: Sodium 143, Potassium 3.9, BUN 6 L, Creatinine 0.97, Glucose 87, Magnesium 2.1 <Vern Baker - Last Filed: 06/02/20 04:47> - Studies Laboratory Data (last 24 hrs) 06/02/20 03:19: Triglycerides 113, Cholesterol 163, HDL Cholesterol 69 H, Cholesterol/HDL Ratio 2.36 06/02/20 03:19: PT 11.2, INR 0.95, APTT 27.3 06/02/20 03:19: WBC 6.50, Hgb 15.6, Hct 47.3, Plt Count 168 06/02/20 03:19: Sodium 143, Potassium 3.9, BUN 6 L, Creatinine 0.97, Glucose 87, Magnesium 2.1 <Alex Muñiz - Last Filed: 06/02/20 12:34> Assessment and Plan - Plan Assessment Acute ischemic CVA History of amphetamine abuse Schizophrenia, bipolar disorder, anxiety, history of suicide attempts Plan Acute ischemic CVA: Patient out of window for t-PA, CT angio head and neck negative for acute findings. Neurology consult in place, continue with aspirin, folic acid. Echocardiogram, MRI ordered. Speech and physical therapy consults ordered. Lipid panel and thyroid panel with morning labs today. Q.4h neuro checks. DVT prophylaxis Lovenox 40 mg subcutaneous once daily. History of amphetamine abuse: Patient reports being clean for the past 3 months, UDS pending. Schizophrenia, bipolar disorder, anxiety, history of suicide attempts: Patient denies taking any home medications at this time, denies thoughts of harming himself or others at this time. Patient affect is a bit flat. Currently interacting appropriately. Discharge Plan: Home Plan to discharge in: 48 Hours - Advance Directives Does patient have a Living Will: No Does patient have a Durable POA for Healthcare: No - Code Status/Comfort Care Code Status Assessed: Yes (Full code) Critical Care: No Time Spent Managing Pts Care (In Minutes): 55 <Vern Baker - Last Filed: 06/02/20 04:47> - Plan Case reviewed with nurse practitioner. Agree with plan of care. Please see progress note for details. <Alex Muñiz - Last Filed: 06/02/20 12:34>
[2020-06-02] MEDS ORDERED: CLOPIDOGREL 75 MG TABLET ONE (06:00)
[2020-06-02 06:06] VITALS: BMI 19.3
[2020-06-02] MEDS ORDERED: ONDANSETRON 4 MG/2 ML VIAL IV PRN (06:16)
[2020-06-02] MEDS ORDERED: ACETAMINOPHEN 500 MG TAB PO PRN (06:16)
[2020-06-02 06:46] VITALS: O2SAT 98
[2020-06-02 06:59] LABS: Thyroid Stimulating Hormone 2.76 uIU/mL (0.360-3.740)
[2020-06-02] MEDS: ASPIRIN EC 81 MG TAB PO SCH (09:54)
[2020-06-02] MEDS: FOLIC ACID 1 MG TABLET PO SCH (09:55)
[2020-06-02] MEDS: ENOXAPARIN 40 MG/0.4 ML SQ SCH (09:56)
--- NOTE | 2020-06-02 10:25 | RAD REPORT ---
EXAM DESCRIPTION: MRI - Brain Wo Cont - 06/02/2020 9:01 am CLINICAL HISTORY: CVA Headache, drowsiness COMPARISON: Head angio dated 06/02/2020 TECHNIQUE: Multi-sequence, multiplanar MR imaging of the brain was performed without contrast. FINDINGS: No intracranial hemorrhage, hydrocephalus or extra-axial fluid collections. Multiple rounded and oblong periventricular T2 and FLAIR hyperintense lesions are present, the larges t on the right 12 mm, largest on the left measuring 14 mm and in the right brainstem near the cerebel lar peduncle measuring 8 mm.Mild elevated T2 and FLAIR signal is seen surrounding the atrium and occi pital horns of both lateral ventricles, greater on the left. The 14 mm lesion in the posterior aspect of the left basal ganglia demonstrates restricted diffusion with mildly elevated ADC map signal peripherally suggesting acute to subacute nonhemorrhagic infarct. Midline structures are normally formed. Mastoid air cells and paranasal sinuses are clear. IMPRESSION: 14 mm acute to subacute infarct noted posterior left basal ganglia. Multiple additional T2 FLAIR hyperintense lesions in the periventricular white matter and single lesi on right aspect of the brainstem.
--- NOTE | 2020-06-02 10:26 | RAD REPORT ---
EXAM DESCRIPTION: MRI - MRA Head Wo Cont - 06/02/2020 9:14 am CLINICAL HISTORY: cva CVA COMPARISON: Brain Wo Cont dated 06/02/2020 FINDINGS: 3D noncontrast [id number] MR angiography of the [place] was performed. No aneurysm, flow-limiting stenosis or vascular malformation is seen. Forward flow seen in codominant vertebral arteries. The visualized dural venous sinuses appear patent. IMPRESSION: No significant flow abnormality of the [place] is identified.
--- NOTE | 2020-06-02 11:35 | RAD REPORT ---
EXAM DESCRIPTION: ADDENDUM #1 These critical findings were discussed with Dr. Stanford on 06/02/2020 at 4:02 AM central time. The following addendum is being made to expand on the patient's clinical history, and does not change the findings or recommendations of the original report. Additional History: Right facial droop and right upper extremity weakness and drift. Electronically signed by: Mary Mart DO 06/02/2020 4:14 AM DISK AND TAPE MACHINE TENDER End of Addendum EXAM DESCRIPTION: CT head without IV contrast CLINICAL HISTORY: 30 years Male WEAKNESS TECHNIQUE: Multiple axial CT images of the brain were performed followed by sagittal and coronal rec onstructed images. The CT study is performed according to ALARA (as low as reasonably achievable) or ALARA/IMAGE GENTLY, with automatic adjustment of mA and/or kV according to patient size. Performed on: 06/02/2020 at 3:24 AM COMPARISON: None. FINDINGS: Brain: There is no evidence of mass, acute mass effect or midline shift. There are no acut e extra-axial fluid collections. There is no evidence of acute intracranial hemorrhage. The cerebra l sulci and ventricles are normal in size and configuration. There is a subtle area of decreased at tenuation in the posterior limb of the left internal capsule possibly representing an area of acute i schemic change. There is also a focal area of decreased attenuation within the right atkinson radiata a djacent to the caudate nucleus. Paranasal Sinuses and Mastoids: There is no significant mucosal thickening of the paranasal sinuses. The mastoid air cells are clear. Orbits: The orbital contents are grossly unremarkable. Bones: No acute osseous abnormalities are identified. Soft Tissues: No focal soft tissue abnormalities are identified. IMPRESSION: 1. Subtle area of decreased attenuation in the posterior limb of the left internal capsu le possibly representing an area of acute ischemic change. Correlate with clinical symptoms. 2. Focal area of decreased attenuation in the right atkinson radiata adjacent to the caudate nucleus wh ich may represent an area of chronic microangiopathy or old lacunar infarct. 3. Otherwise, unremarkable unenhanced head CT. Electronically signed by: Mary Mart DO 06/02/2020 3:59 AM DISK AND TAPE MACHINE TENDER Due to temporary technical issues with the PACS/Fluency reporting system, reports are being signed by the in house radiologists without review as a courtesy to insure prompt reporting. The interpreting radiologist is fully responsible for the content of the report.
--- NOTE | 2020-06-02 11:37 | RAD REPORT ---
EXAM DESCRIPTION: 1. CTA of the head with contrast. 2. CTA of the neck with contrast. CLINICAL HISTORY: 30 years, Male, WEAKNESS COMPARISON: None. TECHNIQUE: Axial CTA images of the head and neck obtained following the uncomplicated intravenous ad ministration of iodinated contrast. 3-D/MIP reformatted images available. FINDINGS: CTA head: In the anterior circulation, the intracranial internal carotid arteries have normal course and calibe r. The internal carotid arteries bifurcate into widely patent A1 and M1 segments of the anterior and middle cerebral arteries respectively. No evidence of flow-limiting stenosis, aneurysm, occlusion, or dissection in the anterior circulation. The anterior communicating artery is patent. In the posterior circulation, the intracranial vertebral arteries combine to form a widely patent bas ilar artery. The basilar artery bifurcates into widely patent P1 segments of the posterior cerebral a rtery. No evidence of stenosis, aneurysm, occlusion, or dissection in the posterior circulation. No definite acute intracranial abnormality identified. No acute abnormality of the osseous calvarium. Paranasal sinuses and mastoid air cells are well aerated. CTA NECK: The aortic arch has normal anatomic configuration. The right common carotid artery is widely patent and bifurcates into widely patent internal and exter nal carotid arteries. 0% stenosis by NASCET criteria. No evidence of occlusion or dissection. The left common carotid artery is widely patent and bifurcates into widely patent internal and wealth management director al carotid arteries. 0% stenosis by NASCET criteria. No evidence of occlusion or dissection. The cervical vertebral arteries are widely patent throughout their course. No evidence of occlusion, stenosis, or dissection. No definite acute abnormalities in the neck soft tissues. No apical pneumothorax. No acute osseous ab normalities. IMPRESSION: 1. No evidence of large vessel occlusion, stenosis, or aneurysm in the intracranial sarabjit rial vasculature. 2. No evidence of stenosis/occlusion involving the cervical carotid or vertebral arteries. This exam was performed according to our departmental dose-optimization program, which includes autom ated exposure control, adjustment of the mA and/or kV according to patient size and/or use of iterati ve reconstruction technique. Electronically signed by: Gerardo Mejia 06/02/2020 4:05 AM WAVE SOLDERING MACHINE OPERATOR Due to temporary technical issues with the PACS/Fluency reporting system, reports are being signed by the in house radiologists without review as a courtesy to insure prompt reporting. The interpreting radiologist is fully responsible for the content of the report.
--- NOTE | 2020-06-02 11:39 | RAD REPORT ---
EXAM DESCRIPTION: 1. CTA of the head with contrast. 2. CTA of the neck with contrast. CLINICAL HISTORY: 30 years, Male, WEAKNESS COMPARISON: None. TECHNIQUE: Axial CTA images of the head and neck obtained following the uncomplicated intravenous ad ministration of iodinated contrast. 3-D/MIP reformatted images available. FINDINGS: CTA head: In the anterior circulation, the intracranial internal carotid arteries have normal course and calibe r. The internal carotid arteries bifurcate into widely patent A1 and M1 segments of the anterior and middle cerebral arteries respectively. No evidence of flow-limiting stenosis, aneurysm, occlusion, or dissection in the anterior circulation. The anterior communicating artery is patent. In the posterior circulation, the intracranial vertebral arteries combine to form a widely patent bas ilar artery. The basilar artery bifurcates into widely patent P1 segments of the posterior cerebral a rtery. No evidence of stenosis, aneurysm, occlusion, or dissection in the posterior circulation. No definite acute intracranial abnormality identified. No acute abnormality of the osseous calvarium. Paranasal sinuses and mastoid air cells are well aerated. CTA NECK: The aortic arch has normal anatomic configuration. The right common carotid artery is widely patent and bifurcates into widely patent internal and exter nal carotid arteries. 0% stenosis by NASCET criteria. No evidence of occlusion or dissection. The left common carotid artery is widely patent and bifurcates into widely patent internal and medical videographer al carotid arteries. 0% stenosis by NASCET criteria. No evidence of occlusion or dissection. The cervical vertebral arteries are widely patent throughout their course. No evidence of occlusion, stenosis, or dissection. No definite acute abnormalities in the neck soft tissues. No apical pneumothorax. No acute osseous ab normalities. IMPRESSION: 1. No evidence of large vessel occlusion, stenosis, or aneurysm in the intracranial sarabjit rial vasculature. 2. No evidence of stenosis/occlusion involving the cervical carotid or vertebral arteries. This exam was performed according to our departmental dose-optimization program, which includes autom ated exposure control, adjustment of the mA and/or kV according to patient size and/or use of iterati ve reconstruction technique. Electronically signed by: Gerardo Mejia 06/02/2020 4:05 AM DELI WORKER Due to temporary technical issues with the PACS/Fluency reporting system, reports are being signed by the in house radiologists without review as a courtesy to insure prompt reporting. The interpreting radiologist is fully responsible for the content of the report.
--- NOTE | 2020-06-02 12:28 | P.PN ---
Subjective Date of Service: 06/02/20 Primary Care Provider: none Chief Complaint: Ischemic CVA Subjective: Other (Patient reports improvement of strength to the right upper and lower extremity. Some numbness noted.) Physical Examination - Vital Signs Temperature: 97 F Blood Pressure: 110/60 Pulse: 64 Respirations: 18 Pulse Ox (%): 98 - Physical Exam General: Alert, In no apparent distress, Cooperative HEENT: Atraumatic Neck: Supple Respiratory: Clear to auscultation bilaterally, Normal air movement Cardiovascular: Normal pulses, Regular rate/rhythm Gastrointestinal: Normal bowel sounds, Soft and benign, Non-distended Neurological: Normal speech, Normal strength at 5/5 x4 extr, Normal tone, Abnormal sensation (Numbness to the right upper and lower extremity) - Studies Laboratory Data (last 24 hrs) 06/02/20 03:19: Triglycerides 113, Cholesterol 163, HDL Cholesterol 69 H, Cholesterol/HDL Ratio 2.36 06/02/20 03:19: PT 11.2, INR 0.95, APTT 27.3 06/02/20 03:19: WBC 6.50, Hgb 15.6, Hct 47.3, Plt Count 168 06/02/20 03:19: Sodium 143, Potassium 3.9, BUN 6 L, Creatinine 0.97, Glucose 87, Magnesium 2.1 Medications List Reviewed: Yes Assessment & Plan Discharge Plan: Home Plan to discharge in: 24 Hours Physician Review Additional Text: Impression: Right upper and lower extremity weakness/paresthesia secondary to acute ischemic CVA with MRI showing 14 mm acute to subacute infarct noted to the posterior left basal ganglia, multiple additional lesions in the periventricular white matter and single lesion to the right aspect of the brainstem History of amphetamine abuse Schizophrenia, bipolar disorder, anxiety, history of suicide attempts Plan Right upper and lower extremity weakness/paresthesia secondary to acute ischemic CVA with MRI showing 14 mm acute to subacute infarct noted to the posterior left basal ganglia, multiple additional lesions in the periventricular white matter and single lesion to the right aspect of the brainstem: MRA negative. MRI reviewed. Continue with aspirin, Plavix, and folic acid. Physical therapy, speech therapy and occupational therapy consulted. Await recommendations. Patient on DVT prophylaxis. LDL 71. No need for statin medication. Continue to work with physical therapy. Anticipate improvement over the next 24 hr with possible discharge tomorrow. History of amphetamine abuse: Patient reports being clean for the past 3 mo [facility]. Continue to recommend cessation education. Schizophrenia, bipolar disorder, anxiety, history of suicide attempts: Patient denies taking any home medications at this time, denies thoughts of harming himself or others at this time. Patient affect is a bit flat. Currently interacting appropriately. Patient would benefit with psychiatric evaluation as an outpatient to further address and treat. Time Spent Managing Pts Care (In Minutes): 55
--- NOTE | 2020-06-02 12:53 | EKG ---
Test Date: 2020-06-02 Test Time: 03:24:54 Cotton Classer Aide: BHAVIN MEASUREMENT RESULTS: Intervals: Rate: 59 NH: 134 QRSD: 102 QT: 404 QTc: 399 [place]: P: 53 NH: 134 QRS: 67 T: -41 INTERPRETIVE STATEMENTS: Sinus bradycardia Incomplete right bundle branch block Lateral infarct, age undetermined ST & T wave abnormality, consider inferior ischemia Abnormal ECG Compared to ECG 04/21/2016 08:49:40 Myocardial infarct finding now present ST (T wave) deviation now present Sinus rhythm no longer present T-wave abnormality no longer present Possible ischemia still present Electronically Signed On 06-02-20 12:53:04 COAT REPAIR INSPECTOR by Wei Ramesh
--- NOTE | 2020-06-02 15:50 | RAD REPORT ---
EXAM DESCRIPTION: Chest Single View CLINICAL HISTORY Weakness COMPARISON: None. FINDINGS: Single frontal radiograph view of the chest. Cardiomediastinal silhouette: Normal size and contour. Lungs: No consolidation, pneumothorax, or pleural effusion. Bones: No acute osseous abnormality. Leads overlie the chest. Upper abdomen: No abnormality identified. IMPRESSION: 1. No acute pulmonary process identified. Electronically signed by: Gerardo Mejia 06/02/2020 3:58 AM RUBBER WASHER Due to temporary technical issues with the PACS/Fluency reporting system, reports are being signed by the in house radiologists without review as a courtesy to insure prompt reporting. The interpreting radiologist is fully responsible for the content of the report.
[2020-06-02 17:49] LABS: Barbiturates NEGATIVE (NEGATIVE); Benzodiazepines NEGATIVE (NEGATIVE); Cocaine NEGATIVE (NEGATIVE); METHAMPHETAM NEGATIVE (NEGATIVE); Methadone NEGATIVE (NEGATIVE); Opiates NEGATIVE (NEGATIVE); Phencyclidine NEGATIVE (NEGATIVE); THC Cannibis NEGATIVE (NEGATIVE)
--- NOTE | 2020-06-02 20:57 | CON ---
Reason For Consultation: Consultation called because of stroke. History Of Present Illness: Mr. Abbott is a 30-year-old right-handed patient with multi ple psychiatric diagnoses including bipolar disorder, schizophrenia, anxiety in addition to drug abus e including methamphetamine, who came to [facility] on 06/02/2020 with at least approximatel y 10 hours of right face, arm, and leg numbness and weakness. His head CT scan done without contrast identified subtle areas of decreased attenuation in the left posterior limb of the internal capsule suggestive of an acute stroke. There was an area adjacent to the right atkinson radiata and caudate th at also may have represented an old stroke. He was out of the window for tPA and a CT angiogram of h is head and neck was negative for any intracranial vessel occlusion or extracranial vessel occlusion. The patient was given aspirin, folic acid, hydration, and admitted for further workup. His brain M RI done subsequently identified a 14 mm area of acute to subacute infarct in the posterior left basal ganglia, which is more consistent with the patient's right-sided deficits. There were also multiple additional T2 and FLAIR hyperintense lesions in the periventricular white matter, and a single lesio n in the right aspect of the brainstem for more chronic ischemic events. Past Medical History: As indicated in addition to multiple suicide attempts with paranoia as well. Past Surgical History: Surgery done on his head and arms. Social History: The patient is unemployed and lives alone. 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 Smoke cigarettes. Denies recent alcohol abuse. Family History: Noncontributory. Allergies: LITHIUM, QUETIAPINE, RISPERIDONE, AND GEODON. Review of Systems: He denies any recent fevers, chills, nausea, vomiting, myalgias, arthralgias, rash, headache, weight change. The patient has multiple tattoos on his face, arm, neck, back. Physical Examination: Vital Signs: Blood pressure ranged 94 to 110/50 to 60, pulse ranged from 59 to 64, respiratory rate 14 to 20, temperature 97.7, oxygen saturation 98% on room air. Weight 130 pounds. Height 5 feet 9 i nches, BMI 19.3. General: Mr. Abbott is lying in bed, in no acute distress. HEENT: He is normocephalic, atraumatic. Skin: He has tattoos over his face, neck, arms, and lower extremities. Neck: Supple. Chest: Clear. Heart: Regular. Extremities: No significant edema, cyanosis, or clubbing. Neurological: He is alert and oriented to person, place, and situation. He has poor labial, lingual , and guttural sounds. He has a slight decrease in the right nasolabial fold, but fair excursions bi laterally. Otherwise, mild decreased touch in the right face. His motor examination in the upper ex tremity on the right is 4/5, in the upper and lower extremity on the left 5/5. Sensation slightly de creased in the right upper and lower extremity compared to the left side. Reflexes are symmetric in the upper and lower extremities. Coordination is slow, but intact in the right and intact in the lef t upper and lower extremities. Gait, he will be ambulated with the physical therapist, tendency to d rift to the left. Laboratory Studies: Complete blood count with differential is normal. Coagulation panel is normal. Chemistry essentially unremarkable. His LDL cholesterol 71, HDL cholesterol 69, TSH 2.76, triglycer ides is 113, cholesterol total 163. Assessment: Mr. Abbott is a 30-year-old patient with multiple stroke by MRI, has now another stro ke. He has history of amphetamine abuse, not taking aspirin, and has multiple psychiatric diagnoses and medications. Plan: 1.Aspirin 81 mg daily, folate 1 mg daily. Also, continue Plavix with the aspirin for 1 month, then just aspirin. 2.Continue all psychiatric medications and follow up with his primary care physician and psychiatris t as appropriate. GAGANDEEP/BERYL Voice ID: [id number] Report ID: [id number]
[2020-06-03 06:02] LABS: Absolute Lymphocytes (CBC) 1.1 K/uL (0.7-4.9); Basophils % 0.6 % (0-1.3); Hematocrit 44.8 % (39.6-49.0); Lymphocytes % 22.5 % (15.3-44.8); MPV 10.1 fL (7.6-11.3); RBC Red Blood Cell Count 5.16 M/uL (4.33-5.43)
[2020-06-03 06:19] LABS: BUN Blood Urea Nitrogen 13 mg/dL (7-18); Bicarbonate 27 mmol/L (21-32); Glucose Level 87 mg/dL (74-106); Magnesium 2.4 mg/dL (1.8-2.4); Potassium 3.9 mmol/L (3.5-5.1); Sodium Level 142 mmol/L (136-145)
[2020-06-03] MEDS: ASPIRIN EC 81 MG TAB PO SCH (08:08)
[2020-06-03] MEDS: FOLIC ACID 1 MG TABLET PO SCH (08:08)
[2020-06-03] MEDS: ENOXAPARIN 40 MG/0.4 ML SQ SCH (08:08)
[2020-06-03] MEDS ORDERED: CLOPIDOGREL 75 MG TABLET PO SCH (09:00)
[2020-06-03] MEDS ORDERED: POTASSIUM CL SA 10 MEQ TAB PO ONE (09:00)
--- NOTE | 2020-06-03 09:09 | P.DS ---
Admission Date: 06/02/20 Discharge Date: 06/03/20 Primary Care Provider: none Disposition: ROUTINE DISCHARGE Discharge Condition: GOOD Reason for Admission: Ischemic CVA Consultations: Neurology-Dr. Ellison Procedures: COVID: Negative MRI Brain: FINDINGS: No intracranial hemorrhage, hydrocephalus or extra-axial fluid collections. Multiple rounded and oblong periventricular T2 and FLAIR hyperintense lesions are present, the largest on the right 12 mm, largest on the left measuring 14 mm and in the right brainstem near the cerebellar peduncle measuring 8 mm.Mild elevated T2 and FLAIR signal is seen surrounding the atrium and occipital horns of both lateral ventricles, greater on the left. The 14 mm lesion in the posterior aspect of the left basal ganglia demonstrates restricted diffusion with mildly elevated ADC map signal peripherally suggesting acute to subacute nonhemorrhagic infarct. Midline structures are normally formed. Mastoid air cells and paranasal sinuses are clear. IMPRESSION: 14 mm acute to subacute infarct noted posterior left basal ganglia. Multiple additional T2 FLAIR hyperintense lesions in the periventricular white matter and single lesion right aspect of the brainstem. MRA Brain: FINDINGS: 3D noncontrast [id number] MR angiography of the [place] was performed. No aneurysm, flow-limiting stenosis or vascular malformation is seen. Forward flow seen in codominant vertebral arteries. The visualized dural venous sinuses appear patent. IMPRESSION: No significant flow abnormality of the [place] is identified. ECHO: EF 67% 2 DIMENSIONAL ASSESSMENT: RIGHT ATRIUM: NORMAL LEFT ATRIUM: NORMAL RIGHT VENTRICLE: NORMAL LEFT VENTRICLE: NORMAL TRICUSPID VALVE: NORMAL MITRAL VALVE: NORMAL PULMONIC VALVE: NORMAL AORTIC VALVE: NORMAL PERICARDIAL EFFUSION: NONE AORTIC ROOT: NORMAL LEFT VENTRICULAR WALL MOTION: DOPPLER/COLOR FLOW: COMMENTS: NORMAL 2-DIMENSIONAL ECHOCARDIOGRAM WITH DOPPLER. NO VEGETATION. NO THROMBUS. Carotid doppler: FINDINGS: Normal high resistance waveforms are noted in both external carotid arteries. The common carotid arteries and internal carotid arteries show normal low resistance waveforms. No significant plaque formation is seen. Peak systolic and end diastolic velocity values and the ICA/CCA ratios are in the non-hemodynamically significant range. Antegrade flow seen in both vertebral arteries. IMPRESSION: No significant atherosclerotic changes noted. No evidence of a hemodynamically significant stenosis. CT head: FINDINGS: CTA head: In the anterior circulation, the intracranial internal carotid arteries have normal course and caliber. The internal carotid arteries bifurcate into widely patent A1 and M1 segments of the anterior and middle cerebral arteries respectively. No evidence of flow-limiting stenosis, aneurysm, occlusion, or dissection in the anterior circulation. The anterior communicating artery is patent. In the posterior circulation, the intracranial vertebral arteries combine to form a widely patent basilar artery. The basilar artery bifurcates into widely patent P1 segments of the posterior cerebral artery. No evidence of stenosis, aneurysm, occlusion, or dissection in the posterior circulation. No definite acute intracranial abnormality identified. No acute abnormality of the osseous calvarium. Paranasal sinuses and mastoid air cells are well aerated. CTA NECK: The aortic arch has normal anatomic configuration. The right common carotid artery is widely patent and bifurcates into widely patent internal and external carotid arteries. 0% stenosis by NASCET criteria. No evidence of occlusion or dissection. The left common carotid artery is widely patent and bifurcates into widely patent internal and external carotid arteries. 0% stenosis by NASCET criteria. No evidence of occlusion or dissection. The cervical vertebral arteries are widely patent throughout their course. No evidence of occlusion, stenosis, or dissection. No definite acute abnormalities in the neck soft tissues. No apical pneumothorax. No acute osseous abnormalities. IMPRESSION: 1. No evidence of large vessel occlusion, stenosis, or aneurysm in the intracranial arterial vasculature. 2. No evidence of stenosis/occlusion involving the cervical carotid or vertebral arteries. This exam was performed according to our departmental dose-optimization program, which includes automated exposure control, adjustment of the mA and/or kV according to patient size and/or use of iterative reconstruction technique. Medical Problem List: Right upper and lower extremity weakness/paresthesia secondary to acute ischemic CVA with MRI showing 14 mm acute to subacute infarct noted to the posterior left basal ganglia, multiple additional lesions in the periventricular white matter and single lesion to the right aspect of the brainstem History of amphetamine abuse Schizophrenia, bipolar disorder with history of suicide attempts Brief History of Present Illness: 30-year-old male with history of bipolar disorder, schizophrenia, anxiety, amphetamine abuse presents the emergency department for right-sided weakness. Patient reports going to bed at approximately 5:00 p.m. last night feeling well and awakening around 2:30 a.m. with right-sided facial droop, right-sided arm/leg weakness. Patient called 911 and was transported to the emergency department, labs unremarkable, CT without contrast demonstrates subtle area of decreased attenuation in the posterior limb of the left internal capsule possibly representing an area of acute ischemic change. Additional area of focal decreased attenuation in the right atkinson radiata adjacent to the caudate nucleus which may represent an area of chronic microangiopathic or old lacunar infarct. Patient out of the window for t-PA patient was admitted for further evaluation and treatment. Hospital Course: Patient presented with right upper and lower extremity weakness/paresthesia. Patient found to have acute ischemic CVA with MRI showing 14 mm acute to subacute infarct noted to the posterior left basal ganglia, multiple additional lesions in the periventricular white matter and single lesion to the right aspect of the brainstem. Patient was seen and evaluated by Neurology. Neurology suspects this may be related to his prior amphetamine use. Patient reports that he has been clean for at least 3 months. Patient plans to continue to quit. Physical therapy worked with the patient without significant gait disturbance. Patient appears to be at his baseline level. LDL within normal range. No need for statin medication. At discharge patient will continue with physical therapy/occupational therapy recommendations. Fall precautions in place. At discharge patient will continue with aspirin 81 mg daily, Plavix 75 mg daily, thiamine 100 mg daily, and folic acid 1 mg daily. Recommend follow up with neurology in 1-2 weeks to follow up this hospitalization. After 1 month neurology plans to discontinue Plavix. Education on CVA and CVA prevention will be provided. Education on amphetamine cessation also addressed in detail. Patient with underlying schizophrenia/bipolar disorder. Patient is not taking any medication. Recommend psychiatric evaluation as an outpatient to further address and consider medication. Patient is not suicidal at this time. Contact information to local psychiatry will be provided. Vital Signs/Physical Exam: Temp Pulse Resp BP Pulse Ox 96.9 F 55 16 97/54 L 97 06/03/20 04:00 06/03/20 04:00 06/03/20 04:00 06/03/20 04:00 06/03/20 04:00 General: Alert, In no apparent distress, Oriented x3, Other (Flat affect) HEENT: Atraumatic Neck: Supple Respiratory: Clear to auscultation bilaterally, Normal air movement Cardiovascular: Normal pulses, Regular rate/rhythm Gastrointestinal: Normal bowel sounds, No tenderness, No masses, No rebound, No guarding Neurological: Abnormal strength (Strength has significantly improved on the right side. Close to 5/5. No gait disturbance as reported by physical therapy.), Abnormal affect (Flat affect) Laboratory Data at Discharge: WBC 4.90 K/uL (4.3-10.9) D 06/03/20 05:49 Hgb 14.8 g/dL (13.6-17.9) 06/03/20 05:49 Hct 44.8 % (39.6-49.0) 06/03/20 05:49 Plt Count 136 K/uL (152-406) L 06/03/20 05:49 PT 11.2 SECONDS (9.5-12.5) 06/02/20 03:19 INR 0.95 06/02/20 03:19 APTT 27.3 SECONDS (24.3-36.9) 06/02/20 03:19 Sodium 142 mmol/L (136-145) 06/03/20 05:49 Potassium 3.9 mmol/L (3.5-5.1) 06/03/20 05:49 BUN 13 mg/dL (7-18) 06/03/20 05:49 Creatinine 0.87 mg/dL (0.55-1.3) 06/03/20 05:49 Glucose 87 mg/dL (74-106) 06/03/20 05:49 Magnesium 2.4 mg/dL (1.8-2.4) 06/03/20 05:49 Triglycerides 113 mg/dL (<150) 06/02/20 03:19 Cholesterol 163 mg/dL (<200) 06/02/20 03:19 HDL Cholesterol 69 mg/dL (40-60) H 06/02/20 03:19 Cholesterol/HDL Ratio 2.36 06/02/20 03:19 Home Medications: Aspirin [Aspirin EC 81 MG] 81 mg PO DAILY #90 tablet. 06/03/20 Clopidogrel Bisulfate [Plavix*] 75 mg PO DAILY #30 tablet 06/03/20 Folic Acid 1 mg PO DAILY #90 tablet 06/03/20 Thiamine HCl 100 mg PO DAILY #90 tablet 06/03/20 New Medications: Aspirin [Aspirin EC 81 MG] 81 mg PO DAILY #90 tablet. Folic Acid 1 mg PO DAILY #90 tablet Clopidogrel Bisulfate [Plavix*] 75 mg PO DAILY #30 tablet Thiamine HCl 100 mg PO DAILY #90 tablet Physician Discharge Instructions: Recommend follow up with a PCP to follow up this hospitalization and establish care. Patient presented with right upper and lower extremity weakness/paresthesia. Patient found to have acute ischemic CVA with MRI showing 14 mm acute to subacute infarct noted to the posterior left basal ganglia, multiple additional lesions in the periventricular white matter and single lesion to the right aspect of the brainstem. Patient was seen and evaluated by Neurology. Neurology suspects this may be related to his prior amphetamine use. Patient reports that he has been clean for at least 3 months. Patient plans to continue to quit. Physical therapy worked with the patient without significant gait disturbance. Patient appears to be at his baseline level. LDL within normal range. No need for statin medication. At discharge patient will continue with physical therapy/occupational therapy recommendations. Fall precautions in elsie ce. At discharge patient will continue with aspirin 81 mg daily, Plavix 75 mg daily, thiamine 100 mg daily, and folic acid 1 mg daily. Recommend follow up with neurology in 1-2 weeks to follow up this hospitalization. After 1 month neurology plans to discontinue Plavix. Education on CVA and CVA prevention will be provided. Education on amphetamine cessation also addressed in detail. Patient with underlying schizophrenia/bipolar disorder. Patient is not taking any medication. Recommend psychiatric evaluation as an outpatient to further address and consider medication. Patient is not suicidal at this time. Contact information to local psychiatry will be provided. Diet: AHA Activity: Fall precautions Followup: NONE,NONE [Primary Care Provider] - Time spent managing pt's care (in minutes): 55
--- NOTE | 2020-06-03 12:25 | RAD REPORT ---
EXAM DESCRIPTION: US - CP - 06/03/2020 12:11 pm CLINICAL HISTORY: CVA COMPARISON: Neck Angio dated 06/02/2020 TECHNIQUE: Real-time sonographic evaluation of both carotid systems was performed. Doppler interroga tion was performed with waveform tracing bilaterally. FINDINGS: Normal high resistance waveforms are noted in both external carotid arteries. The common c arotid arteries and internal carotid arteries show normal low resistance waveforms. No significant plaque formation is seen. Peak systolic and end diastolic velocity values and the ICA/ CCA ratios are in the non-hemodynamically significant range. Antegrade flow seen in both vertebral arteries. IMPRESSION: No significant atherosclerotic changes noted. No evidence of a hemodynamically significant stenosis.
[2020-06-03 12:30] VITALS: BP 136/60; TEMP 97.7
--- NOTE | 2020-06-03 12:33 | ECHO ---
HEIGHT: 5 ft 9 in WEIGHT: 130 lb 8 oz DATE OF STUDY: 06/02/[address]: Vern Baker NP 2-DIMENSIONAL: YES M.MODE: YES DOPPLER: YES COLOR FLOW: YES TDS: YES PORTABLE: DEFINITY: BUBBLE STUDY: DIAGNOSIS: CEREBRAL VASCULAR ACCIDENT CARDIAC HISTORY: CATHERIZATION: SURGERY: PROSTHETIC VALVE: PACEMAKER: MEASUREMENTS (cm) DIASTOLIC (NORMALS) SYSTOLIC (NORMALS) IVSd 1.2 (0.6-1.2) LA Diam (1.9-4.0) LVEF 67% LVIDd 4.1 (3.5-5.7) LVIDs 2.6 (2.0-3.5) %FS 37% LVPWd 1.0 (0.6-1.2) Ao Diam 2.9 (2.0-3.7) 2 DIMENSIONAL ASSESSMENT: RIGHT ATRIUM: NORMAL LEFT ATRIUM: NORMAL RIGHT VENTRICLE: NORMAL LEFT VENTRICLE: NORMAL TRICUSPID VALVE: NORMAL MITRAL VALVE: NORMAL PULMONIC VALVE: NORMAL AORTIC VALVE: NORMAL PERICARDIAL EFFUSION: NONE AORTIC ROOT: NORMAL LEFT VENTRICULAR WALL MOTION: DOPPLER/COLOR FLOW: COMMENTS: NORMAL 2-DIMENSIONAL ECHOCARDIOGRAM WITH DOPPLER. NO VEGETATION. NO THROMBUS. TECHNOLOGIST: NICKY LAGUNAS
== END 2020-06-03 15:16 | disposition home or self-care (01) | DRG 65 ==
LOC: ER 03:09 → ERHOLD 04:40 → 2ND 05:35
PROVIDERS: ADMIT Family Medicine; ATTEND Family Medicine
DX: I63.9 Cerebral infarction, unspecified (principal); G81.91 Hemiplegia, unspecified affecting right dominant side; R29.810 Facial weakness; R20.2 Paresthesia of skin; R29.703 NIHSS score 3; F17.210 Nicotine dependence, cigarettes, uncomplicated; F20.9 Schizophrenia, unspecified; F41.9 Anxiety disorder, unspecified; F31.9 Bipolar disorder, unspecified; Z88.8 Allergy status to other drugs, medicaments and biological substances; Z60.2 Problems related to living alone; Z56.0 Unemployment, unspecified; Z79.82 Long term (current) use of aspirin; Z79.02 Long term (current) use of antithrombotics/antiplatelets; Z20.822 Contact with and (suspected) exposure to COVID-19
CPT/HCPCS: 36415; 70450; 70496; 70498; 70544; 70551; 71045; 80048; 80061; 80307; 80320; 82550; 82565; 82947; 83735; 84439; 84443; 85025; 85610; 85730; 93005; 93306; 93880; 96374; 97161; 99285; J1650; J7030; Q9967; U0003

== ENCOUNTER 2020-06-03 16:05 | Emergency (ER) | payer OTHER ==
--- OUTSIDE RECORDS SUMMARY | 2020-06-03 16:10 | XMS REPORT | Clinical Summary ---
:1990 Author Organization [facility] Address [address] [place] [id number] Care Team Providers Name Role Phone Asked, [...] Comments COVID-19 VACCINE (1 of 2) 2004 HEPATITIS C SCREENING 2006 INFLUENZA VACCINE 11/30/2019 Results Not on fileafter 06/03/2019 Insurance Payer Benefit Plan / Subscriber ID Effective Dates Phone Addre ss Type Group MEDICAID MEDICAID [id number] 2017-Present Pr dicaid [facility] MEDICAID [facility] [id number] 2018-Present HMO [employer] Anna DEBBY muhammad (Home) [place] [id number] Advance Directives For more information, please contact: [phone] Type Date 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
--- OUTSIDE RECORDS SUMMARY | 2020-06-03 16:14 | XMS REPORT | Continuity of Care Document ---
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 04/13/2018 [facility] Smoking Status Light tobacco smoker; Exposure to Tobacc o Smoke None; Cigarette Smoking Last 365 Days Yes; Reg Smoking Cessation Counseling No entered on: 04/12/18 Social History TypeResponse 04/13/2018 [facility] Smoking Status Light tobacco smoker; Exposure to Tobacc o Smoke None; Cigarette Smoking Last 365 Days Yes; Reg Smoking Cessation Counseling No entered on: 04/12/18 Social History TypeResponse 05/01/2016 [facility] Smoking Status Light tobacco smoker; Exposure to [...]
--- OUTSIDE RECORDS SUMMARY | 2020-06-03 16:17 | XMS REPORT | Continuity of Care Document ---
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 2018-04-14 14:00:00 [facility] Heart Rate 2018-04-14 10:00:00 [facility] Systolic (mm Hg) 2018-04-14 10:00:00 [place] [facility] [place] Diastolic (mm Hg) 2018-04-14 10:00:00 [facility] Temperature Oral (F) 2018-04-14 10:00:00 98.4 F [facility] Heart Rate 2018-04-14 06:00:00 [facility] Systolic (mm Hg) 2018-04-14 06:00:00 [place] [facility] [place] Diastolic (mm Hg) 2018-04-14 06:00:00 [facility] Temperature Oral (F) 2018-04-14 06:00:00 98.4 F [facility] Respitory Rate 2018-04-13 18:00:00 [facility] Respitory Rate 2018-04-13 16:00:00 [facility] Respitory Rate 2018-04-13 15:00:00 [facility] [place] BMI Calculated 2018-04-13 04:49:00 [facility] Weight 2018-04-13 04:49:00 [facility] Height 2018-04-13 04:49:00 157.48 cm [facility] Height 2018-04-12 21:49:00 177.8 cm [facility] Weight 2018-04-12 21:49:00 [facility] BMI Calculated 2018-04-12 21:49:00 [facility] [place] Systolic (mm Hg) 2016-05-01 06:38:00 [facility] [facility] [place] Diastolic (mm Hg) 2016-05-01 06:38:00 [facility] [place] Respitory Rate 2016-05-01 06:38:00 [facility] Heart Rate 2016-05-01 06:38:00 [facility] Height 2016-05-01 01:44:00 175.26 cm [facility] BMI Calculated 2016-05-01 01:44:00 [facility] Weight 2016-05-01 01:44:00 [facility] Systolic (mm Hg) 2016-05-01 01:44:00 [place] [facility] [place] Diastolic (mm Hg) 2016-05-01 01:44:00 [facility] [place] Heart Rate 2016-05-01 01:44:00 [facility] Respitory Rate 2016-05-01 01:44:00 [facility] [place] Temperature Oral (F) 2016-05-01 01:44:00 98.1 F [facility] Respitory Rate 2016-04-30 13:02:00 [facility] Systolic (mm Hg) 2016-04-30 13:02:00 [facility] Diastolic (mm Hg) 2016-04-30 13:02:00 [facility] [place] Heart Rate 2016-04-30 13:02:00 [facility] Temperature Oral (F) 2016-04-30 13:02:00 98.0 F [facility] BMI Calculated 2016-04-30 10:35:00 [facility] [place] Height 2016-04-30 10:35:00 175.26 cm [facility] Weight 2016-04-30 10:35:00 [facility] Respitory Rate 2016-04-30 10:35:00 [facility] Temperature Oral (F) 2016-04-30 10:35:00 98.0 F [facility] Heart Rate 2016-04-30 10:35:00 [facility] Systolic (mm Hg) 2016-04-30 10:35:00 [facility] Diastolic (mm Hg) 2016-04-30 10:35:00 [facility] Respitory Rate 2016-04-07 16:22:00 [facility] [place] Systolic (mm Hg) 2016-04-07 16:22:00 [facility] [facility] [place] Diastolic (mm Hg) 2016-04-07 16:22:00 [facility] Temperature Oral (F) 2016-04-07 16:22:00 98.2 F [facility] Heart Rate 2016-04-07 16:22:00 [facility] Systolic (mm Hg) 2016-04-07 13:26:00 [facility] Diastolic (mm Hg) 2016-04-07 13:26:00 [facility] Temperature Oral (F) 2016-04-07 13:26:00 98.5 F [facility] Heart Rate 2016-04-07 13:26:00 [facility] Respitory Rate 2016-04-07 13:26:00 [facility] Heart Rate 2016-04-07 12:55:00 [facility] Temperature Oral (F) 2016-04-07 12:55:00 98.5 F [facility] Respitory Rate 2016-04-07 12:55:00 [facility] [place] Systolic (mm Hg) 2016-04-07 12:55:00 [facility] Diastolic (mm Hg) 2016-04-07 12:55:00 [facility] Weight 2016-04-07 01:47:00 [facility] Height 2016-04-07 01:47:00 175.26 cm [facility] BMI Calculated 2016-04-07 01:47:00 [facility] [place] Systolic (mm Hg) 2016-01-14 07:34:00 [facility] Diastolic (mm Hg) 2016-01-14 07:34:00 [facility] Respitory Rate 2016-01-14 07:34:00 [facility] Systolic (mm Hg) 2016-01-14 04:36:00 [place] [facility] [place] Diastolic (mm Hg) 2016-01-14 04:36:00 [facility] Respitory Rate 2016-01-14 04:36:00 [facility] [place] Systolic (mm Hg) 2016-01-14 03:28:00 [place] [facility] [place] Diastolic (mm Hg) 2016-01-14 03:28:00 [facility] Respitory Rate 2016-01-14 03:28:00 [facility] [place] Heart Rate 2016-01-14 02:47:00 [facility] Weight 2016-01-14 02:12:00 [facility] BMI Calculated 2016-01-14 02:12:00 [facility] [place] Height 2016-01-14 02:12:00 175.26 cm [facility] Temperature Oral (F) 2016-01-14 02:12:00 98.5 F [facility] Heart Rate 2016-01-14 02:12:00 [facility] Diastolic (mm Hg) 2012-12-31 01:48:00 [facility] Systolic (mm Hg) 2012-12-31 01:48:00 [facility] [place] Respitory Rate 2012-12-31 01:48:00 [facility] Heart Rate 2012-12-31 01:48:00 [facility] Temperature Oral (F) 2012-12-31 01:48:00 98.3 F [facility] Diastolic (mm Hg) 2012-12-30 20:21:00 [facility] Systolic (mm Hg) 2012-12-30 20:21:00 [facility] Respitory Rate 2012-12-30 20:21:00 [facility] [place] Heart Rate 2012-12-30 20:21:00 [facility] Temperature Oral (F) 2012-12-30 20:21:00 97.5 F [facility] Heart Rate 2012-12-30 16:18:00 [facility] Temperature Oral (F) 2012-12-30 16:18:00 97 F [facility] Respitory Rate 2012-12-30 16:18:00 [facility] [place] Diastolic (mm Hg) 2012-12-30 16:18:00 [facility] [place] Systolic (mm Hg) 2012-12-30 16:18:00 [facility] Height 2012-12-29 02:00:00 175.26 cm [facility] Weight 2012-12-29 02:00:00 [facility] Procedures This patient has no known procedures. Plan of Care Planned Activity Planned Date Details Comments Source Future Scheduled 2019-11-30 INFLUENZA VACCINE [place] [facility] 00:00:00 [code = INFLUENZA VACCINE] Future Scheduled 2006 Hepatitis C [facility] 00:00:00 screening (procedure) [code = 541761033] Future Scheduled 2004 COVID-19 VACCINE (1 [place] [facility] 00:00:00 of 2) [code = COVID-19 VACCINE (1 of 2)] Encounters Start End Encounter Admission Attending Care Care Encounter Source Date/Time Date/Time Type Type Clinicians Facility Department ID 2019-12-14 2019-12-15 Outpatient Diego, [facility] [id number] 23:20:04 03:22:00 Elio Harryh 2019-12-14 2019-12-14 Emergency E [facility] [id number] 23:20:00 23:20:00 l Bryson Cornejooria l [facility] 2018-04-18 2018-04-18 Outpatient Shawna [facility] [id number] 05:54:00 10:31:00 Sbheber Echeverria 2018-04-12 2018-04-14 Outpatient Mena [facility] [id number] 15:46:00 15:30:00 Eddie Deluna 06 2016-04-30 2016-05-01 [place] [id number] 19:27:00 01:00:00 Hiram S 05 2016-04-30 2016-04-30 Outpatient Heide [place] [id number] 04:30:00 07:04:00 Santana 2016-04-06 2016-04-07 [id number] 19:26:00 10:46:00 Mirta andre 02 Yary 2016-01-13 2016-01-14 Outpatient Jacob [facility] [id number] 21:11:00 03:00:00 Noemi Shi 01 Results Test [...] B/C Ratio) 6 1 6-25 [facility] NTCPO0351-72-30 04:57:0089[facility] PANEL 2019-12-15 04:57:007.6[facility] GOQVD0499-11-40 04:57:0023[facility] ZXQUI1353-45-62 04:57:0016[facility] CFNWH3918-44-92 04:57:0038[facility] XZGXB7408-59-81 04:57:000.3[facility] HTTYR4622-85-10 04:57:003.4[facility] ZHGYJ1465-74-76 04:57:00 Test Item Value Reference Range Interpretation Comments A/G Ratio (test code = A/G Ratio) 1.2 1 0.7-1.6 [facility] MrowkmwSQIPFJLFQT3347-56-83 04:57:009.2[facility]annHEMATOLOGY 2019-12-15 04:57:004.56[facility] GqswvkmIKHVMQZLFP8162-97-13 04:57:0013.3[facility] WwslgkuVVFJCKGRJM6541-06-26 04:57:0039.7[facility] GlwfomuWQADHTOMND6519-80-54 04:57:0087.0[facility] IfvbjuvFNYRCWCQFW8613-79-86 04:57:00 Test Item Value Reference Range Interpretation Comments MCH (test code = MCH) 29.2 pg 27.0-31.0 [facility] IfvukerAPUOBDPQVP6604-24-63 04:57:0033.6[facility]annHEMATOLOGY 2019-12-15 04:57:0013.1[facility] SdrnsuaKEXUDMUPEG2210-58-16 04:57:58533Emkvjizv WugjcjoNTUPJLGVON4108-05-91 04:57:009.8[facility] OkgyzjrZULQBTPZBD8360-90-12 04:57:0079.0[facility] FnawraoAGSTQCKFQQ5756-16-86 04:57:0013.7[facility] FAHZMBTZKB4848-03-88 04:57:006.5[facility] KxdhmrcGSIRHLRSSP9212-94-74 04:57:000.5 [facility] BqabmsyUNYPJEFSXC8475-19-45 04:57:000.3[facility]annHEMATOLOGY 2019-12-15 04:57:007.3[facility] FbdbztgLSLHVMNWTU4843-63-04 04:57:001.3[facility] VycpxcePIEAIXCOKE7644-61-81 04:57:000.6[facility] JflzlyvRNBPAEMAOB6054-93-17 04:57:00<3[facility] LuxokykYURIJEXFFS0609-54-61 04:57:00<0.003[facility] ExzwzbrUAWOSRTEVL9737-07-52 04:57:00<2 (12/14/19 11:57 PM)[facility] MIJBQDCTIS4410-20-19 04:57:003.4[facility] HermannCARDIAC JFJUYOS5269-15-19 13:17:60432Zhtfpmvq FvhrcyiCUQQFFMGENAD1416-86-92 13:17:0014.8[facility] XQQATDXFQXBK4075-33-36 13:17:0093[facility] PbgxaslIKZWZONXBEEP4606-51-97 13:17:00 1.07[facility] WzywujiIFUYEWIKKVZD5792-80-43 13:17:62225Bwlujxkg [facility] IVRWFCNMQMYZ2079-79-09 13:17:003.8[facility] NugnyleLKKQEULYAQFA3794-41-37 13:17:009.3[facility] ZadfipaLDHWEEQQDIVT7104-30-23 13:17:0023[facility] KOISIBANDDQS0088-64-20 13:17:11378Jnmasnvp GecgvihMHJYOVDVEDVB5480-27-93 13:17:0094[facility] UltbsidHSGLIELNKFPM4970-74-14 13:17:0017[facility] SEHMRBCWDU2497-92-86 13:17:0033.6[facility] DravvxsWNVRPMPTBC4625-47-94 13:17:00 14.7[facility] XtuvbygWHNPEWSSQK9205-05-19 13:17:00 Test Item Value Reference Range Interpretation Comments MCH (test code = MCH) 27.9 pg 27.0-31.0 [facility] ZsosgilTNFHQSHHUX0999-05-55 13:17:0083.1[facility]annHEMATOLOGY 2018-04-18 13:17:009.9[facility] KcxeyyyXRJBOECVGG0326-29-25 13:17:37599Tayczind SdqwuazHKZAWPNIMU6482-63-00 13:17:004.63[facility] IjrlbbdDJGTHUNNKK4797-07-15 13:17:0012.9[facility] XldbhxjEYCKMCUNBV1443-17-93 13:17:0038.4[facility] PPMUCOLSHF9514-10-84 13:17:008.2[facility] JcvihxlEFMKOZHSGI8775-28-42 13:17:000.9 [facility] NbfygskZSRXEBJOEK4501-29-88 13:17:000.1[facility]annHEMATOLOGY 2018-04-18 13:17:001.1[facility] PjmrsvbZJSLCYPDEV0428-93-10 13:17:006.1[facility] SpahbvcVPNFJAPSII3798-11-37 13:17:0011.1[facility] ZvwadssALESYGLUMI2983-97-21 13:17:000.9[facility] RfvzwwoBJDNSTIVRT2955-36-39 13:17:000.2[facility] YKWOWCCJHJ6738-06-81 13:17:0074.9[facility] OnbndnoFEUEEUKWTN2055-87-12 13:17:00 12.9[facility] AhmitdtOAEFSUXDUO9392-94-49 13:17:00<1.7[facility] [place] ZTBYMMZWCV6648-94-62 13:17:003[facility]annCARDIAC PCNVSQL7664-95-99 10:11:00 <0.02[facility]annCHEM QEUWN5676-08-11 10:11:003.7[facility]annCHE[facility] SOQYY0234-45-09 10:11:002.1[facility] BskfapsPOAVXFCBVFHH7252-81-66 10:11:0011.0 [facility] BayvjxvVJJJPJXSRFRG8210-73-94 10:11:000.90[facility]annELECTROLYTES 2018-04-13 10:11:61719Ftwcsodi FzhzxwpTFIOFYKPJKGQ4396-27-98 10:11:008.2[facility] FrpwzwvRLWTAPAJVGKV0064-42-00 10:11:0025[facility] SglwfrnYFEAJTIIOJJU8141-30-10 10:11:99287Ktqdrsle NzqfnriGFOELRCBTGEA9082-92-53 10:11:004.0[facility] GTJMGBPCGQFP1265-86-90 10:11:61176Tbywbhpd ItjbpjlVNRKYOUZQFPK4250-08-83 10:11:0011[facility] SpehbwzYGGKCTQJSKEO2854-68-87 10:11:0085[facility] XSTXWUNSWP8764-91-97 10:11:00 Test Item Value Reference Range Interpretation Comments MCH (test code = MCH) 27.9 pg 27.0-31.0 [facility] KmegkdpBSTUDGIFXU3311-79-22 10:11:0033.5[facility]annHEMATOLOGY 2018-04-13 10:11:0036.7[facility] TzvogshVPNKMZGLDU9748-62-83 10:11:0083.1[facility] RojrpxvSXNQYMGNAP3256-25-99 10:11:004.42[facility] ZomfalsPHNWKRDXZB3264-18-26 10:11:0012.3[facility] UdvfwvhDNXJJFEFAO9590-07-81 10:11:008.5[facility] BYDAXCOXPX9810-78-93 10:11:009.5[facility] WidhehsGDGVAXTVNB7932-88-01 10:11:00 14.4[facility] XmbjgjxDGKDNABARI0712-98-64 10:11:03950Udptjmjz HermannHEMATOLOGY 2018-04-13 10:11:001.2[facility] VepvwqbETMLEGODDH3495-04-24 10:11:000.6[facility] GfxcmfxBYWDMMGBCW3559-40-97 10:11:000.2[facility] AjosxfgYVVEEGAKHZ2433-77-32 10:11:000.0[facility] GxdqierGMVKQQHJYU1363-47-47 10:11:002.3[facility] OHLIPFKHSQ1446-24-20 10:11:000.3[facility] RpvutlrIFVBIBFECU5974-88-32 10:11:006.5 [facility] NhlocupBPGSZFMDGU9005-50-13 10:11:0014.5[facility]annHEMATOLOGY 2018-04-13 10:11:006.7[facility] OfxjvftZMSWYJJMOI4207-62-98 10:11:0076.2[facility] HermannPARATHYROID FNVNKOR4974-93-13 10:11:001.13[facility] HermannPARATHYROID NHJYJMP9687-26-87 10:11:001.17[facility]UR[facility] AND YJRPT6381-28-37 06:21:00 None Seen (04/13/18 12:21 AM)[facility] ZADDO1212-58-23 06:21:001 [facility] FXKST8847-91-17 06:21:001[facility] FDYFD0882-27-16 06:21:00 Test Item Value Reference Range Interpretation Comments UA Spec Grav (test code = UA Spec 1.009 1 Grav) [facility] BQJAW5095-37-14 06:21:00Clear (04/13/18 12:21 AM) [facility] NJWIA1943-69-37 06:21:00<=1.0[facility] PZAYG9302-87-01 06:21:00Negative *NA*(04/13/18 12:21 AM)[facility] URINE AND WJTYF6055-27-72 06:21:00Negative *NA*(04/13/18 12:21 AM)[facility] YVQYJ2490-71-28 06:21:00Trace *ABN*(04/13/18 12:21 AM)[facility] NPHAW1403-41-31 06:21:00Negative (04/13/18 12:21 AM)[facility] BUBYJ0975-91-62 06:21:00Negative *NA*(04/13/18 12:21 AM) [facility] YYCOE3854-55-72 06:21:00 Test Item Value Reference Range Interpretation Comments UA pH (test code = UA pH) 7.0 1 5.0-8.0 [facility] BQNOW4437-30-92 06:21:00Negative (04/13/18 12:21 AM) [facility] CLHLO8063-73-79 06:21:00Negative (04/13/18 12:21 AM) [facility]annCARDIAC NLCFAGH5117-96-48 05:42:00<0.02[facility] EFAOADMGFJ4134-85-22 05:42:00Negative *NA*(04/12/18 11:42 PM)[facility] BACTERIAL - YIPSCQGU5285-48-15 05:18:00Negative (04/12/18 11:18 PM)[facility]annDR[facility] EDFCXS3330-57-56 23:22:00Negative *NA*(04/12/18 5:22 PM)[facility] SGAQHL5821-08-00 23:22:00Negative *NA*(04/12/18 5:22 PM)[facility] ZMIWQQ8430-05-05 23:22:00Negative *NA*(04/12/18 5:22 PM)[facility] EUEGKY6204-24-10 23:22:00Negative *NA*(04/12/18 5:22 PM)[facility] FQJCSV6649-78-34 23:22:00Negative *NA*(04/12/18 5:22 PM)[facility] UAKLUL7613-37-62 23:22:00See Note (04/12/18 5:22 PM)[facility] DRUG MRTRPV9603-75-65 23:22:00Negative *NA*(04/12/18 5:22 PM)[facility] DRUG BSCKFG6000-10-83 23:22:00Negative *NA*(04/12/18 5:22 PM)[facility] CARDIAC OIQRUGM4103-93-85 22:38:000.02[facility] HermannCARDIAC MOJCPOU2690-99-07 22:38:0050[facility]annCHEM UXJVH6216-32-12 22:38:75147Kgiyglbi HermannCHEM ENJNC9634-50-73 22:38:0017[facility]annCHEM VWZNX4189-13-10 22:38:0023 [facility]annCHE[facility] DYGYA5280-91-17 22:38:004.0[facility]annCHEM PANEL 2018-04-12 22:38:007.4[facility]annCHE[facility] BHJSJ1816-75-26 22:38:000.3[facility]annCHE[facility] WEAIB9813-33-01 22:38:0035[facility]annCHEM ONEZZ3315-92-32 22:38:71215Uzbsaxww HermannCHEM IIQEO7937-81-26 22:38:009.4[facility]annCHEM CJOUV0900-86-51 22:38:0032[facility]annCHEM ZEEMC0000-05-57 22:38:004.2 [facility]annCHE[facility] SCKVW0009-63-29 22:38:66649Vcmrvjxf HermannCHEM PANEL 2018-04-12 22:38:000.80[facility]annCHEM GWQIR8944-66-52 22:38:0012[facility]annCHEM DMKTF7066-87-11 22:38:0093[facility]annCHEM EMEGX2794-21-11 22:38:00 Test Item Value Reference Range Interpretation Comments A/G Ratio (test code = A/G Ratio) 1.2 1 0.7-1.6 [facility] HermannCHEM TMXBJ1028-33-53 22:38:003.4[facility]annCHEM PANEL 2018-04-12 22:38:00 Test Item Value Reference Range Interpretation Comments B/C Ratio (test code = B/C Ratio) 15 1 6-25 [facility] HermannCHEM EBERE0877-36-99 22:38:008.2[facility]annHEMATOLOGY 2018-04-12 22:38:0032.1[facility] GlcazrwKTIYEFIWHG9090-45-91 22:38:00 Test Item Value Reference Range Interpretation Comments MCH (test code = MCH) 27.4 pg 27.0-31.0 [facility] NqxzzyrGBFTEWLAWG1431-95-73 22:38:54916Bzkggecz HermannHEMATOLOGY 2018-04-12 22:38:0014.4[facility] RgtyvsgKWDJAVSSAJ0955-49-48 22:38:009.1[facility] IcwcmonAURQYFGWAI7277-64-13 22:38:0014.0[facility] DgzdewuWTIRUWFEWP3010-70-19 22:38:005.18[facility] PlizhshYYPFFVDUDN6230-23-33 22:38:0014.2[facility] OSOJKMZCER0375-98-47 22:38:0044.2[facility] KfkuvnrFHRMALKGFY3469-10-90 22:38:00 85.3[facility] KtkpjubPQUNZSCYJU4112-29-64 22:38:000.2[facility] HermannHEMATOLOGY 2018-04-12 22:38:000.1[facility] NtijlbgSPDOGCUVRC1310-66-17 22:38:002.7[facility] CrovvdmAGVQAZNFCN1622-68-43 22:38:000.4[facility] ZslxabuNAWGMGKSCV3210-25-24 22:38:000.6[facility] WpzxastVTWUCNCNUB1884-48-49 22:38:0013.0[facility] VMVEZKHTVP9531-71-33 22:38:004.1[facility] LuwyqcjBCLIXFXBYE1459-18-49 22:38:000.0 [facility] ZeoxlrjZXFSXEPOLA4345-45-87 22:38:000.0[facility] HermannHEMATOLOGY 2018-04-12 22:38:00Normal (04/12/18 4:38 PM)[facility] PptxcoyBJFDHCYLNY5932-03-88 22:38:00Normal (04/12/18 4:38 PM)[facility] RlzeqjbAVLBEJQCAV2971-99-69 22:38:00 92.9[facility] NxtdwmyIKIPGRXQFO9604-83-08 22:38:00Moderate *ABN*(04/12/18 4:38 PM)[facility]annCARDIAC YMYZXNC8941-04-69 03:21:417710Fjkpdoob [facility] MXYPTYZEEFWS2635-37-46 03:21:0014.1[facility] VtkoozxXMYKWZQNXKTI8129-66-15 03:21:0011[facility] LsbibuoJNQLNVIKWMNG6519-41-10 03:21:003.2[facility] UYKFTWEDXLFZ4403-30-85 03:21:001.3[facility] ZkyibqxPYTSJYMCJIWQ3599-95-72 03:21:000.4[facility] WvddsqtEAUGLDPOUGRS4190-55-77 03:21:54517Evnnpeja [place] EWZSWYHQTFMQ7607-17-57 03:21:004.2[facility] NhzczwzFPITPPDUQGWN1562-06-43 03:21:0048[facility] KgmmfpfTESVYEPTERKV6165-38-41 03:21:21056Rzxkhswq [place] JDMFFCMGCLTQ0244-35-48 03:21:0075[facility] QgjpoebOCUGYOMNQLFD0452-48-13 03:21:00 11[facility] WlkbsiyPXYPCTSVMPDH0713-56-90 03:21:004.1[facility] HermannELECTROLYTES 2016-05-01 03:21:001.00[facility] HuqmkicKCTUPTJDFIYO0771-62-33 03:21:13336 [facility] JdrodudEDOOIKXOVGAU3982-75-64 03:21:76941Iexxdwuw HermannELECTROLYTES 2016-05-01 03:21:0024[facility] VqjlcyjTJQDGKKPNKIG3333-77-42 03:21:007.4[facility] GlursmiGUZWDNGPFEFU1622-18-18 03:21:009.1[facility] WcjkispVDJONNOVQODM8255-06-06 03:21:0052[facility] LcllpeyURFQBCFKYE6067-85-92 03:21:0086.0[facility] FSKUYCWXWA4610-62-64 03:21:00 Test Item Value Reference Range Interpretation Comments MCH (test code = MCH) 29.7 pg 27.0-31.0 [facility] UjpcyqsGSDLGVYHCR0554-32-03 03:21:0041.0[facility]annHEMATOLOGY 2016-05-01 03:21:004.77[facility] OcndvwuROFKHXVHVV6501-94-87 03:21:008.8[facility] WddhdvzYDAFPULAXW7372-35-75 03:21:0014.2[facility] HduyjjjVFNDEYZGPI7115-70-29 03:21:75952Pikuchic IvmttlnJKUOQGMFDW5389-90-33 03:21:0034.5[facility] XXNTEKVLDY8782-85-37 03:21:0013.5[facility] VagyefpEMDEHRMSGB4664-84-76 03:21:00 8.9[facility] MtfasdpPRLLFVQFOA4607-41-38 03:21:0021.1[facility]annHEMATOLOGY 2016-05-01 03:21:0011.7[facility] JlkpihuYEKIXVKSOX2647-24-37 03:21:001.8[facility] AndpqhePMUAHSAWQY3742-17-63 03:21:005.7[facility] LcisqftGELKIJWSHN5924-29-20 03:21:001.7[facility] LizgyknDMCOMOWJPK4649-91-63 03:21:000.8[facility] JSBOSVYSIU2423-81-56 03:21:000.1[facility] RtkptjyNSATAQJIYM6053-43-42 03:21:001.0 [facility] CjdvpzpGJMYBNZFAY3334-72-97 03:21:000.2[facility]annHEMATOLOGY 2016-05-01 03:21:0064.7[facility] EnncgulEQKERJCVTR1632-87-82 04:48:00<0.003 [facility] DcwnlyvJNYXCIHVKU6674-75-39 04:48:00<3[facility] HermannDRUG SCREEN 2016-04-07 02:43:00See Note *NA*(04/06/16 [...] pH) 5.5 1 5.0-8.0 [facility] KJKJV9248-45-45 02:43:00 Test Item Value Reference Range Interpretation Comments UA Spec Grav (test code = UA Spec 1.025 1 Grav) [facility] OPKXY0648-04-53 02:43:00Negative (04/06/16 8:43 PM) [facility] EKWWI7133-41-75 02:43:000.2[facility] DRPIL8098-02-27 02:43:00Negative (04/06/16 8:43 PM)[facility] DPMOD8606-24-59 02:43:00Small *ABN*(04/06/16 8:43 PM)[facility] UKEUM5827-49-61 02:43:00Trace *ABN*(04/06/16 8:43 PM)[facility] VEGKM0436-58-97 02:43:00Clear (04/06/16 8:43 PM)[facility] STOOL 2016-04-07 02:43:00Yellow *NA*(04/06/16 8:43 PM)[facility]annCARDIAC ENZYMES 2016-04-07 02:38:23134Lpgadojf HermannCHEM RLUDX6304-82-37 02:38:42720Qnrggcrg HermannCHEM QWMZP1929-31-82 02:38:009.2[facility]annCHEM XEBPG2406-67-37 02:38:007.6[facility]annCHEM YITPW0400-16-91 02:38:0022[facility]annCHEM VNDRQ6145-77-81 02:38:0043[facility]annCHEM WDTCZ7651-20-78 02:38:004.4 [facility]annCHEM EAJRP2121-28-65 02:38:0022[facility]annCHEM PANEL 2016-04-07 02:38:67983Vbsguika HermannCHEM NSMLA5941-57-09 02:38:000.81[facility] HermannCHEM ROCCR1540-10-40 02:38:81807Xbjhddxl HermannCHEM YJNXP9337-26-67 02:38:004.4[facility] HermannCHEM RCWPA0965-31-74 02:38:000.9[facility] HermannCHEM ERQUG7036-03-07 02:38:0034[facility]annCHEM AFTJI8787-48-51 02:38:0063 [facility]annCHEM AODWH0751-90-69 02:38:0014[facility] HermannCHEM PANEL 2016-04-07 02:38:0017.4[facility] HermannCHEM RDJEO5011-57-66 02:38:0017[facility]annCHEM IWTRS5433-33-33 02:38:003.2[facility]annCHEM AQGYH5283-60-66 02:38:001.4[facility] NcwdwjyMWUKXXNZSX0822-11-19 02:38:001.7[facility] OPDHMEUNDX5435-97-31 02:38:001.0[facility] AvyguroTGSPMVXRDN9709-74-27 02:38:000.4 [facility] BrscuabUSFESHIPOT0220-33-13 02:38:004.2[facility] HermannHEMATOLOGY 2016-04-07 02:38:009.2[facility] JcejufjLQQCIJENNV8303-16-15 02:38:000.6[facility] SnwkpthKWHWRQSGFV6564-42-42 02:38:000.1[facility] OottbhvIZLTOYGEIA5391-50-74 02:38:0026.3[facility] LpmtajhNKPMDQUIFO2272-97-68 02:38:0063.1[facility] YMNWBKPYVN7600-45-30 02:38:006.6[facility] KvqhsylGBMLZTMULN5657-69-37 02:38:00 42.9[facility] BzexsgrAACADQVZBD8914-18-10 02:38:004.86[facility]annHEMATOLOGY 2016-04-07 02:38:0014.4[facility] KkgzrmpUKKOLFOCLU3563-80-79 02:38:0088.3[facility] LolfeszQDRXTQJNBS5781-45-69 02:38:00 Test Item Value Reference Range Interpretation Comments MCH (test code = MCH) 29.6 pg 27.0-31.0 [facility] BdhbvkjMNTJQXNSLT0719-47-05 02:38:0033.6[facility]annHEMATOLOGY 2016-04-07 02:38:009.4[facility] DgfqgzhRRWTEWJCTM8867-68-34 02:38:0013.4[facility] WshiglrFKSGLJCUSD4586-75-86 02:38:98422Ykxumfsl GaumtckEMTIQAXPZD0392-59-64 02:38:00<1.7[facility] UqugdvsNSYWKCNCOO0618-62-98 02:38:00<2 (04/06/16 8:38 PM)[facility] HermannVIRAL - UALOZTIE3389-11-71 02:38:00Negative (04/06/16 8:38 PM) [facility]annVIRAL - CEVBGVVV5812-52-42 02:38:00Negative (04/06/16 8:38 PM) [facility] CyunracSUIVNVNFE9471-33-97 06:42:008[facility] WrykzwxOTSBQKGJQ2740-73-70 06:42:002.5[facility] OchsqpsCLTSHZBZM6012-91-18 06:42:0016.9[facility] TDWCVUTCQ0416-97-85 06:42:001.6[facility] RzppfazQCHRFHLJZ9857-47-96 06:42:14608 [facility] WtilytgCQEACJYBJ6140-74-43 06:42:19183Rfeadmzr HermannCHEMISTRY 2012-12-30 06:42:0026[facility] KrtborzWHDKBKWSG3012-18-82 06:42:003.9[facility] QzwgfqdXOKYDRLDH2166-35-18 06:42:0047[facility] EgappaqUATLROQYE0533-47-14 06:42:006.4[facility] RrrflvuCIHBRFSJV4276-23-09 06:42:0031[facility] IHTCPSEQO7480-75-19 06:42:009.0[facility] FwanzngKGNTYBXCP7547-77-88 06:42:000.4 [facility] EmmjcibPRFAJAKNS4709-45-80 06:42:98099Vatwcert HermannCHEMISTRY 2012-12-30 06:42:0024[facility] GgiuvbcKGXLWMYTB0880-36-82 06:42:22223Qajzhgpn KlzyvxpDQJULNCLH5276-09-19 06:42:003.9[facility] SnnkngjNFOMTBMSA9824-99-03 06:42:008[facility] JeycqbeNJLMGVLMQ5039-74-81 06:42:001.0[facility] ZSTKRJZOMR7546-28-24 06:42:00 Test Item Value Reference Range Interpretation Comments MCH (test code = MCH) 30.2 pg 27.0-31.0 N [facility] DtepltfPPGYVWHBZC9040-84-05 06:42:95987Wghzkhyp HermannHEMATOLOGY 2012-12-30 06:42:0010.1[facility] FetgkriWIMTSYTMHR6666-53-07 06:42:0013.4[facility] MrxjlqfICKDPUXXPC9274-87-73 06:42:0039.4[facility] UzaiiwvDOTHPBYNKT7607-44-45 06:42:0089.5[facility] HssjvirBOSUKJKIUP9142-64-91 06:42:0013.3[facility] POWSWWLWLN4995-80-73 06:42:0033.7[facility] VffxwsuDVTCMMGALY8716-00-74 06:42:00 12.5[facility] ZindbunVZZEOTKDTR1789-84-98 06:42:004.40[facility] HermannHEMATOLOGY 2012-12-30 06:42:009.4[facility] ZfefnbkBUETEUPNWU0366-65-86 06:42:0010.8[facility] UraopikBVURPVUWIF4404-32-76 06:42:0079.6[facility] QvjhhlcZADRDRCGFO1940-09-66 06:42:000.1[facility] WaychpjEXZGQRGOBT1969-94-55 06:42:000.1[facility] CTQVFKOYPP7293-01-46 06:42:009.9[facility] IktllhfKNCKUBXVBV1381-43-92 06:42:001.2 [facility] VaysnoiHWMOVHNSKX2537-01-36 06:42:001.3[facility] HermannCHEMISTRY 2012-12-29 09:00:492.0[facility] NmhemlfUNNIRKKBK9744-96-13 03:30:38See Note 5(12/28/2012 22:30:38)[facility] XwzgirmZLTZYUTBZ3046-33-73 03:30:38Negative *NA*(12/28/2012 22:30:38)[facility] QevqsgkIUDCXEPRT0679-73-44 03:30:38Positive *ABN*(12/28/2012 22:30:38)[facility] MwsxpyyHCAYUNBTZ3841-27-31 03:30:38Negative *NA*(12/28/2012 22:30:38)[facility] KcqhvgnXORDNFNVX1135-68-71 03:30:38Negative *NA*(12/28/2012 22:30:38)[facility] TqkdcefVSAXURHZS1531-45-67 03:30:38Negative *NA*(12/28/2012 22:30:38)[facility] KedhokcNUCPSGKJD3395-59-42 03:30:38Negative *NA*(12/28/2012 22:30:38)[facility] SjlfacgPWYEKDHZB2434-79-63 03:30:38Negative *NA*(12/28/2012 22:30:38)[facility] DxoqxypTPOWSXMQUN5743-56-45 03:30:38Negative mg/dL *NA*(12/28/2012 22:30:38)[facility] JefmsbqVGRZGKZVMO9030-23-92 03:30:38 Negative *NA*(12/28/2012 22:30:38)[facility] AzwmpzrSOEEXPEKQX2301-20-42 03:30:38 Negative (12/28/2012 22:30:38)[facility] KideajoPZOHSQOAFX9730-23-27 03:30:380.2 [facility] AmnjiajEQYPZQGMIE9742-13-91 03:30:38Negative (12/28/2012 22:30:38) [facility] SgbsvsgMTOKWNDRNI7614-72-96 03:30:38Negative (12/28/2012 22:30:38) [facility] NoldjuwZQJCLTEXTE4985-60-96 03:30:38 Test Item Value Reference Range Interpretation Comments UA pH (test code = UA pH) 7.0 1 5.0-8.0 N [facility] KwbzvacDJYZDFJOVH1331-47-44 03:30:38Negative mg/dL (12/28/2012 22:30:38)[facility] JapxkfgSIJLOVMXGC3207-45-74 03:30:38 Test Item Value Reference Range Interpretation Comments UA Spec Grav (test code = UA Spec 1.010 1 N Grav) [facility] TzmanexEYWZTBAMPG5383-29-95 03:30:38Negative mg/dL (12/28/2012 22:30:38)[facility] IbinuykRARYQITGBW8972-72-19 03:30:38Clear (12/28/2012 22:30:38)[facility] VbiejanXFNCMZBSLD0548-84-70 03:30:38Yellow *NA*(12/28/2012 22:30:38)[facility] XtrsyowUBYBCRJLHJ8972-02-78 03:30:21None Seen (12/28/2012 22:30:21)[facility] WkiqxslINOHRSNZNB8933-49-39 03:30:21Performed (12/28/2012 22:30:21)[facility] JyssydgSIIGHESWTC9133-59-52 03:30:21None Seen (12/28/2012 22:30:21)[facility] SpeughgHOFRPUVYXF8028-21-94 03:30:210-2 /HPF (12/28/2012 22:30:21)[facility] GwhupemQNRRTBQUUV0604-73-86 03:30:21None Seen (12/28/2012 22:30:21)[facility] HermannBLOOD BANK XZEPDIJ6773-53-33 02:00:00Negative (12/28/2012 21:00:00)[facility] LldgykkVRRQXDPVW2529-75-14 01:56:0084.6[facility] TedzlamXVKHHZRGM1401-98-27 01:56:0037.0[facility] AjetdraCWFSNNCLD4207-76-55 01:56:00-4[facility] CceluxbWESLCFLUP5500-01-17 01:56:0020[facility] MQIBDZUNT7606-45-78 01:56:0049[facility] PdeudpgLWQPAQWEW9178-72-84 01:56:007.41 [facility] ZslsefiWXFWHILSQ0590-08-15 01:56:0031[facility] HermannCHEMISTRY 2012-12-29 01:56:004.4[facility] LisulrqJDSUZYRBA8776-76-07 01:56:0079[facility] OsbuyxhLMVDHMOLD0816-96-88 01:56:000.079[facility] MnzgmpbAQDKZXWLW7250-33-39 01:56:0093[facility] GntjraoHDTVWFEPR3202-17-07 01:56:006[facility] HermannCHEMISTRY 2012-12-29 01:56:001.1[facility] NinvpfaLMZEBIMTB6525-65-19 01:56:32653Ehqkjsxf BlkxbuwMAUVCRHBN3977-24-88 01:56:53693Ngdvizbf LknqupbMOINQXXAZ1370-11-35 01:56:75969Wwjeuzap WhibjnfDLTPDZBMZ3931-84-38 01:56:0021[facility] SEAEBHEPF5751-92-56 01:56:003.1[facility] TzrqatyACJOOQMTU7525-88-76 01:56:008.6 [facility] RbdlkukKWIQHRMWP1805-51-87 01:56:0019.1[facility] HermannHEMATOLOGY 2012-12-29 01:56:001.3[facility] YheujnySMPHDZWTVF2465-39-78 01:56:00 Test Item Value Reference Range Interpretation Comments K-time (test code = K-time) 2.2 min 0.6-2.3 N [facility] JpgsfkjCPMGCXCWOH2463-17-53 01:56:00 Test Item Value Reference Range Interpretation Comments Angle (test code = Angle) 64 degrees 64-80 N [facility] AsjsealETTFZLAJQX0216-62-58 01:56:00 Test Item Value Reference Range Interpretation Comments Max Amp (test code = Max Amp) 58 mm 52-71 N [facility] UafcyakEQDXBTUOLX8708-11-54 01:56:00 Test Item Value Reference Range Interpretation Comments R-time (test code = R-time) 0.8 min 0.4-0.7 H [facility] LdtwhnvBLBEQZLHYC2713-36-97 01:56:00 Test Item Value Reference Range Interpretation Comments Split Point (test code = Split Point) 0.6 min [facility] MoycmpgFMQNBEOOKC9040-72-86 01:56:00 Test Item Value Reference Range Interpretation Comments ACT (TEG) (test code = ACT (TEG)) 121 s 86-118 H [facility] QmpceddOWYLEDVWPW7713-26-10 01:56:006.9[facility] HermannHEMATOLOGY 2012-12-29 01:56:0014.8[facility] LwpiwsiLRPFUFWZCQ9685-41-47 01:56:005.05[facility] VmegljyWYMYULQNLB5389-19-20 01:56:0044.5[facility] WvxgrqfYYXSOBQNYO1685-57-30 01:56:0011.8[facility] QokbhugEBIMLHKTPR2362-73-65 01:56:009.2[facility] ALXVJMKJET9345-61-04 01:56:0033.2[facility] FtpnpytVYQDDVQOCI5099-92-99 01:56:00 88.1[facility] AyrblbjJPFKMQUVCK4089-05-08 01:56:00 Test Item Value Reference Range Interpretation Comments MCH (test code = MCH) 29.3 pg 27.0-31.0 N [facility] JiowvkrGNUIPRXMYD5047-06-25 01:56:55984Czxnlaxj HermannHEMATOLOGY 2012-12-29 01:56:0012.4[facility] FiijfrhFSGXPJKFJU4295-31-93 01:56:0014.0[facility] GwxsdoeIVPGMGODAJ7614-81-21 01:56:00Normal (12/28/2012 20:56:00)[facility] OMVFPRMQOJ5387-76-87 01:56:006.0[facility] YfcfbmuEBLXKQGKUS5252-46-91 01:56:00 72.0[facility] SptntdxJLRZADGGYB8306-51-42 01:56:000.9[facility] HermannHEMATOLOGY 2012-12-29 01:56:001.7[facility] WdumndjWTDIQLQCMI4248-47-12 01:56:009.2[facility] CdfitzrJUPAODKERU9322-60-14 01:56:008.0[facility] MovavmuXRQCFESSUI3192-70-31 01:56:000.0[facility] UovfpyiZSUZFZCGHX1167-97-86 01:56:00Normal (12/28/2012 20:56:00)[facility]
--- NOTE | 2020-06-03 16:44 | RAD REPORT ---
EXAM DESCRIPTION: CT - Ct Stroke Brain Wo Cont - 06/03/2020 4:31 pm CLINICAL HISTORY: Slurred speech COMPARISON: June 02, [address] TECHNIQUE: Computed axial tomography of the head was obtained. All CT scans are performed using dose optimization technique as appropriate and may include automated exposure control or mA/KV adjustment according to patient size. FINDINGS: An intracranial bleed is not seen . The ventricles are normal in caliber. No extra-axial fluid collection is noted. An approximately 17 millimeter low-density area within the left internal capsule is without significa nt change. Low-density area within the right atkinson radiata unchanged likely old infarction. Fluid within the sinuses/ mastoids is not seen. IMPRESSION: Approximately 17 millimeter low-density area within the left internal capsule is without significant change and is compatible with relatively acute infarction. Dr Lundberg of the emergency room was notified at 4:36 p.m. June 03, 2020
[2020-06-03 16:55] LABS: Absolute Lymphocytes (CBC) 1.1 K/uL (0.7-4.9); Basophils % 0.4 % (0-1.3); Hematocrit 46.9 % (39.6-49.0); Lymphocytes % 19.4 % (15.3-44.8); MPV 10.5 fL (7.6-11.3)
[2020-06-03 16:57] LABS: Protime INR 0.93
[2020-06-03 16:58] LABS: Potassium 3.9 mmol/L (3.5-5.1)
[2020-06-03] MEDS ORDERED: NA CHLORIDE 0.9% 1,000 ML ONE (17:21)
--- NOTE | 2020-06-03 17:25 | RAD REPORT ---
EXAM DESCRIPTION: Jon Single View06/03/2020 5:06 pm CLINICAL HISTORY: Shortness of breath COMPARISON: June 02, 2020 FINDINGS: The lungs appear clear of acute infiltrate. The heart is normal size IMPRESSION: No acute abnormalities displayed
--- NOTE | 2020-06-03 18:18 | EDPHYS ---
Physician Documentation [facility] Name: Alex Abbott Age: 30 yrs Sex: Male : 1990 Arrival Date: 06/03/2020 Time: 16:06 Bed 2 Private MD: ED Physician Sb Lundberg HPI: 06/04 16:39 This 30 yrs old Male presents to ER via EMS with complaints of Near Syncope, kdr Slurred Speech. 16:39 The patient has experienced near-syncope, felt dizzy, felt generally weak, Weak on the kdr right side. Onset: The symptoms/episode began/occurred suddenly, just prior to arrival. Duration: This was a single episode. Context: the episode(s) was witnessed, by a bystander, occurred at home, occurred while the patient was at rest. Associated injury: The patient did not suffer any apparent associated injury. Associated signs and symptoms: Pertinent positives: felt weak and dizzy and like he had last his strength on karyn right side. Current symptoms: weak with halting speech, moving all extremity. It is unknown whether or not the patient has had similar symptoms in the past. The patient has been recently seen by a physician: The patient has been recently been admitted at [facility], was discharged earlier today. Historical: - Allergies: 06/03 16:10 lithium; hb 16:10 quetiapine fumarate; hb 16:10 risperidone; hb 16:10 ziprasidone HCl; hb - Home Meds: 16:10 Cogentin Oral [Active]; thorazine [Active]; Wellbutrin Oral [Active]; hb - PMHx: 16:10 ADD/ADHD; Anxiety; Bipolar disorder; Depression; drug overdose; Pneumonia; hb Schizophrenia; - PSHx: 16:10 None; hb - Immunization history:: Adult Immunizations up to date. - Social history:: Smoking status: Patient reports the use of cigarette tobacco products, smokes one-half pack cigarettes per day. ROS: 06/04 16:39 Constitutional: Negative for fever, chills, and weight loss, Eyes: Negative for injury, kdr pain, redness, and discharge, ENT: Negative for injury, pain, and discharge, Neck: Negative for injury, pain, and swelling, Cardiovascular: Negative for chest pain, palpitations, and edema, Respiratory: Negative for shortness of breath, cough, wheezing, and pleuritic chest pain, Abdomen/GI: Negative for abdominal pain, nausea, vomiting, diarrhea, and constipation, Back: Negative for injury and pain, : Negative for injury, bleeding, discharge, and swelling, MS/Extremity: Negative for injury and deformity, Skin: Negative for injury, rash, and discoloration, Psych: Negative for depression, anxiety, suicide ideation, homicidal ideation, and hallucinations, Allergy/Immunology: Negative for hives, rash, and allergies, Endocrine: Negative for neck swelling, polydipsia, polyuria, polyphagia, and marked weight changes, Hematologic/Lymphatic: Negative for swollen nodes, abnormal bleeding, and unusual bruising. Neuro: Positive for altered mental status, near syncope, weakness. Exam: 06/03 16:47 ECG was reviewed by the Attending Physician. kdr 06/04 16:39 Constitutional: This is a well developed, well nourished patient who is awake, alert, kdr and in no acute distress. Head/Face: Normocephalic, atraumatic. Eyes: Pupils equal round and reactive to light, extra-ocular motions intact. Lids and lashes normal. Conjunctiva and sclera are non-icteric and not injected. Cornea within normal limits. Periorbital areas with no swelling, redness, or edema. Neck: Trachea midline, no thyromegaly or masses palpated, and no cervical lymphadenopathy. Supple, full range of motion without nuchal rigidity, or vertebral point tenderness. No Meningismus. Chest/axilla: Normal chest wall appearance and motion. Nontender with no deformity. No lesions are appreciated. Cardiovascular: Regular rate and rhythm with a normal S1 and S2. No gallops, murmurs, or rubs. Normal PMI, no JVD. No pulse deficits. Respiratory: Lungs have equal breath sounds bilaterally, clear to auscultation and percussion. No rales, rhonchi or wheezes noted. No increased work of breathing, no retractions or nasal flaring. Abdomen/GI: Soft, non-tender, with normal bowel sounds. No distension or tympany. No guarding or rebound. No evidence of tenderness throughout. Back: No spinal tenderness. No costovertebral tenderness. Full range of motion. Skin: Warm, dry with normal turgor. Normal color with no rashes, no lesions, and no evidence of cellulitis. MS/ Extremity: Pulses equal, no cyanosis. Neurovascular intact. Full, normal range of motion. Neuro: Awake and alert, GCS 15, oriented to person, place, time, and situation. Cranial nerves II-XII grossly intact. Motor strength 5/5 in all extremities. Sensory grossly intact. Cerebellar exam normal. Normal gait. Psych: Behavior/mood is cooperative, slow and halting but overall his neuro exam is completely normal. Affect is calm, flat, animated. Vital Signs: 06/03 16:07 BP 120 / 84; Pulse 68; Resp 16; Temp 97.7; Pulse Ox 100% on R/A; Pain 0/10; hb 17:02 BP 109 / 75; Pulse 66; Resp 17; Pulse Ox 99% on R/A; hb 17:54 BP 113 / 71; Pulse 57; Resp 14; Pulse Ox 100% on R/A; hb 18:30 BP 114 / 83; Pulse 65; Resp 15; Pulse Ox 99% on R/A; Pain 2/10; hb NIH Stroke Scale Scores: 16:45 NIHSS Score: 2 hb 16:47 NIHSS Score: 2 kdr MDM: 18:18 Patient medically screened. kdr 06/04 16:39 Data reviewed: vital signs, nurses notes, lab test result(s), EKG, radiologic studies. kdr Counseling: I had a detailed discussion with the patient and/or guardian regarding: the historical points, exam findings, and any diagnostic results supporting the discharge/admit diagnosis, lab results, radiology results, the need for outpatient follow up. Physician consultation:. ED course: D/w Dr. Marsh who d/w Dr. faustin. Given current findings, will not need readmission. 06/03 16:27 Order name: Basic Metabolic Panel; Complete Time: 17:26 hb 06/03 16:27 Order name: CBC with Diff; Complete Time: 17:26 hb 06/03 16:27 Order name: Protime (+inr); Complete Time: 17:26 hb 06/03 16:27 Order name: Ptt, Activated; Complete Time: 17:26 hb 06/03 16:42 Order name: Glucose, Ancillary Testing; Complete Time: 17:26 EDMS 06/03 16:27 Order name: CT Stroke Brain w/o Contrast; Complete Time: 17:26 hb 06/03 16:27 Order name: Stroke CXR 1 View; Complete Time: 18:08 hb 06/03 16:27 Order name: EKG; Complete Time: 16:27 hb 06/03 16:27 Order name: Accucheck; Complete Time: 16:57 hb 06/03 16:27 Order name: Cardiac monitoring; Complete Time: 16:57 hb 06/03 16:27 Order name: EKG - Nurse/Tech; Complete Time: 16:57 hb 06/03 16:27 Order name: IV Saline Lock; Complete Time: 16:57 hb 06/03 16:27 Order name: Labs collected and sent; Complete Time: 16:57 hb 06/03 16:27 Order name: NPO; Complete Time: 16:57 hb 06/03 16:27 Order name: O2 Per Protocol; Complete Time: 16:57 hb 06/03 16:27 Order name: O2 Sat Monitoring; Complete Time: 16:57 hb EC/03 18:57 Rate is 59 beats/min. Rhythm is regular, Sinus Rhythm with Right bundle branch block. kdr QRS [place] is Normal. MD interval is normal. QRS interval is normal. QT interval is normal. Clinical impression: NSR w/ Non-specific ST/T Changes. Administered Medications: 17:07 Drug: NS 0.9% 1000 ml Route: IV; Rate: 1 bolus; Site: left hand; hb 18:46 Follow up: IV Status: Completed infusion; IV Intake: 1000ml ss Point of Care Testing: Blood Glucose: 16:43 Blood Glucose: 89 mg/dL; hb Ranges: Critical Glucose Levels:Adult <50 mg/dl or >400 mg/dl <40 mg/dl or >180 mg/dl Disposition: 06/03/20 18:18 Discharged to Home. Impression: Weakness, Dizziness and giddiness, Speech disturbances, not elsewhere classified. - Condition is Stable. - Discharge Instructions: Weakness, Dgyi-ge-Fmeh, Dizziness, Mfuz-yn-Mszu. - Medication Reconciliation Form, Thank You Letter form. - Follow up: Private Physician; When: 1 - 2 days; Reason: If symptoms return, Further diagnostic work-up, Recheck today's complaints, Continuance of care, Re-evaluation by your physician. - Problem is an acute exacerbation. - Symptoms have improved. NIH Stroke Scale - NIH Stroke Score Date: 06/03/2020 Time: 16:45 Total Score = 2 1a. Level of Consciousness (LOC) - 0(Alert) 1b. Level of Consciousness (LOC) (Year \T\ Age) - 0(Both) 1c. LOC Commands (Open \T\ Closes Eyes/Byproduct Engineer) - 0(Both) 2. Best Gaze (Lateral Gaze Paresis) - 0(Normal) 3. Visual Field Loss - 0(No visual loss) 4. Facial Palsy - 0(Normal) 5a. Left Arm: Motor (10-second hold) - 0(No drift) 5b. Right Arm: Motor (10-second hold) - 0(No drift) 6a. Left Leg: Motor (5-second hold - always test supine) - 0(No drift) 6b. Right Leg: Motor (5-second hold - always test supine) - 0(No drift) 7. Limb Ataxia (finger/nose \T\ heel/estrada - test with eyes open) - 0(Absent) 8. Sensory Loss (pinprick arms/legs/face) - 0(Normal) 9. Best Language: Aphasia (description/naming/reading) - 1(Mild to moderate aphasia) 10. Dysarthria (speech clarity - read or repeat words) - 1(Mild to Moderate) 11. Extinction and Inattention (visual/tactile/auditory/spatial/personal) - 0(No abnormality) Initials: NIH Stroke Scale - NIH Stroke Score Date: 06/03/2020 Time: 16:47 Total Score = 2 1a. Level of Consciousness (LOC) - 0(Alert) 1b. Level of Consciousness (LOC) (Year \T\ Age) - 0(Both) 1c. LOC Commands (Open \T\ Closes Eyes/Byproduct Engineer) - 0(Both) 2. Best Gaze (Lateral Gaze Paresis) - 0(Normal) 3. Visual Field Loss - 0(No visual loss) 4. Facial Palsy - 0(Normal) 5a. Left Arm: Motor (10-second hold) - 0(No drift) 5b. Right Arm: Motor (10-second hold) - 0(No drift) 6a. Left Leg: Motor (5-second hold - always test supine) - 0(No drift) 6b. Right Leg: Motor (5-second hold - always test supine) - 0(No drift) 7. Limb Ataxia (finger/nose \T\ heel/estrada - test with eyes open) - 0(Absent) 8. Sensory Loss (pinprick arms/legs/face) - 0(Normal) 9. Best Language: Aphasia (description/naming/reading) - 1(Mild to moderate aphasia) 10. Dysarthria (speech clarity - read or repeat words) - 1(Mild to Moderate) 11. Extinction and Inattention (visual/tactile/auditory/spatial/personal) - 0(No abnormality) Initials: kdr Signatures: Dispatcher [employer] [facility] Sb Lundberg MD MD [facility] Sherrell Ma, RN RN David Rangel RN RN rv Federica Michele RN ss Corrections: (The following items were deleted from the chart) 17:26 16:38 MR STROKE PROTOCOL+MRI.RAD.BRZ ordered. [facility] 19:28 18:18 06/03/2020 18:18 Discharged to Home. Impression: Weakness; Dizziness and rv giddiness; Speech disturbances, not elsewhere classified. Condition is Stable. Forms are Medication Reconciliation Form, Thank You Letter, Antibiotic Education, Prescription Opioid Use. Follow up: Private Physician; When: 1 - 2 days; Reason: If symptoms return, Further diagnostic work-up, Recheck today's complaints, Continuance of care, Re-evaluation by your physician. Problem is an acute exacerbation. Symptoms have improved. kdr
--- NOTE | 2020-06-03 18:18 | ER ---
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 Was in patient for CVA, discharged hb today. BGL 88. Coronavirus screen: At this time, the client does not indicate any symptoms associated with coronavirus-19. Ebola Screen: No symptoms or risks identified at this time. The patients blood glucose was checked before arriving to the hospital and was found to be normal. Initial Sepsis Screen: Does the patient meet any 2 criteria? No. Patient's initial sepsis screen is negative. Does the patient have a suspected source of infection? No. Patient's initial sepsis screen is negative. Risk Assessment: Do you want to hurt yourself or someone else? Patient reports no desire to harm self or others. Onset of symptoms was June 03, 2020. 16:07 Method Of Arrival: EMS: [facility] hb 16:07 Acuity: ROCIO 2 hb 16:15 An acute neurological deficit is present. The charge nurse has been notified. hb Triage Assessment: 15:00 The onset of the patients symptoms was June 03, 2020 at 15:15. General: Appears in hb no apparent distress. Behavior is calm, cooperative. 15:00 Pain: Denies pain. EENT: No signs and/or symptoms were reported regarding the EENT hb system. Neuro: Level of Consciousness is awake, alert, obeys commands, Oriented to person, place, situation, Administrator Of Home Health are equal bilaterally Moves all extremities. Gait is steady, Speech is slurred, with expressive aphasia noted, Facial droop on right, Pupils are PERRLA, Numbness in right jaw Reports dizziness and difficulty speaking.. Cardiovascular: Capillary refill < 3 seconds Patient's skin is warm and dry. Rhythm is regular. Respiratory: Respiratory effort is even, unlabored, Respiratory pattern is regular, symmetrical. GI: No signs and/or symptoms were reported involving the gastrointestinal system. : No signs and/or symptoms were reported regarding the genitourinary system. Derm: Skin is pink, warm \T\ dry. Musculoskeletal: No signs and/or symptoms reported regarding the musculoskeletal system. Stroke Activation: Symptom onset < 3 hours Physician: Stroke Attending; Name: ; Notified At: ; Arrived At: Physician: Chief Stroke Resident; Name: ; Notified At: ; Arrived At: Physician: Stroke Resident; Name: ; Notified At: ; Arrived At: Physician: ED Attending; Name: ; Notified At: ; Arrived At: Physician: ED Resident; Name: ; Notified At: ; Arrived At: Historical: - Allergies: 16:10 lithium; hb 16:10 quetiapine fumarate; hb 16:10 risperidone; hb 16:10 ziprasidone HCl; hb - Home Meds: 16:10 Cogentin Oral [Active]; thorazine [Active]; Wellbutrin Oral [Active]; hb - PMHx: 16:10 ADD/ADHD; Anxiety; Bipolar disorder; Depression; drug overdose; Pneumonia; hb Schizophrenia; - PSHx: 16:10 None; hb - Immunization history:: Adult Immunizations up to date. - Social history:: Smoking status: Patient reports the use of cigarette tobacco products, smokes one-half pack cigarettes per day. Screenin:10 Abuse screen: Denies threats or abuse. Denies injuries from another. Nutritional hb screening: No deficits noted. Tuberculosis screening: No symptoms or risk factors identified. Fall Risk None identified. Assessment: 16:15 Reassessment: Pt to CT via stretcher with Sherrell KAUR. hb 16:24 Reassessment: Pt returned from CT with Sherrell KAUR. Charge Nurse Asha KAUR and Dr. chana Lundberg at bedside. 16:30 Reassessment: Blood collected and send to outside lab. hb 16:45 VAN Scoring: Arm Drift: Patients demonstrates NO arm weakness. Patient is VAN Negative. hb 16:51 Reassessment: EKG completed by Asha KAUR. hb 16:52 Patient has been NPO before screening. The patient is alert, and able to follow hb commands. The patient exhibits slurred or garbled speech. Provider notified of the indication for Speech Therapy consult. The patient failed the bedside swallow screening. The patient will be kept NPO until cleared by Speech Therapy or Physician. T-PA (Activase) Screening: Indications: Definite evidence of stroke, ischemic, embolic, or hypertensive: No. Contraindications: Other: per consult with neuro and NIHSS. 17:30 Reassessment: Patient appears in no apparent distress at this time. Patient and/or hb family updated on plan of care and expected duration. Pain level reassessed. Patient is alert, oriented x 3, equal unlabored respirations, skin warm/dry/pink. 18:12 Reassessment: Patient appears in no apparent distress at this time. Patient and/or hb family updated on plan of care and expected duration. Pain level reassessed. Patient is alert, oriented x 3, equal unlabored respirations, skin warm/dry/pink. Patient states symptoms have improved. 18:44 Reassessment: Patient appears in no apparent distress at this time. Patient and/or ss family updated on plan of care and expected duration. Pain level reassessed. discharge papers given to patient. Pt verbalizes understanding. Awaiting for Mother to get here for transportation. Pt remains on monitors. Vital Signs: 16:07 BP 120 / 84; Pulse 68; Resp 16; Temp 97.7; Pulse Ox 100% on R/A; Pain 0/10; hb 17:02 BP 109 / 75; Pulse 66; Resp 17; Pulse Ox 99% on R/A; hb 17:54 BP 113 / 71; Pulse 57; Resp 14; Pulse Ox 100% on R/A; hb 18:30 BP 114 / 83; Pulse 65; Resp 15; Pulse Ox 99% on R/A; Pain 2/10; hb NIH Stroke Scale Scores: 16:45 NIHSS Score: 2 hb 16:47 NIHSS Score: 2 kdr ED Course: 16:06 Patient arrived in ED. ss 16:09 Triage completed. hb 16:10 Arm band placed on. hb 16:10 Patient has correct armband on for positive identification. Placed in gown. Bed in low hb position. Call light in reach. Side rails up X 1. 16:14 Sb Lundberg MD is Attending Physician. kdr 16:28 Missed attempt(s): 20 gauge in right antecubital area. Bleeding controlled, band aid sv applied, catheter tip intact. 16:31 CT Stroke Brain w/o Contrast In Process Unspecified. EDMS 16:35 Missed attempt(s): 22 gauge in right upper arm. Bleeding controlled, band aid applied, sv catheter tip intact. 16:47 Sherrell Ma, RN is Primary Nurse. hb 16:47 Inserted saline lock: 24 gauge in left hand, using aseptic technique. hb 16:50 EKG done, by ED staff, reviewed by Sb Lundberg MD. sv 17:06 Stroke CXR 1 View In Process Unspecified. EDMS 18:45 No provider procedures requiring assistance completed. ss 19:17 Primary Nurse role handed off by Sherrell Ma RN [email or web address] 19:27 David Rangel, RN is Primary Nurse. rv 19:27 IV discontinued, intact, bleeding controlled, No redness/swelling at site. rv Administered Medications: 17:07 Drug: NS 0.9% 1000 ml Route: IV; Rate: 1 bolus; Site: left hand; hb 18:46 Follow up: IV Status: Completed infusion; IV Intake: 1000ml ss Point of Care Testing: Blood Glucose: 16:43 Blood Glucose: 89 mg/dL; hb Ranges: Intake: 18:46 IV: 1000ml; Total: 1000ml. ss Outcome: 18:18 Discharge ordered by . kdr 18:45 Condition: good ss 18:45 Discharge instructions given to patient, Instructed on discharge instructions, follow up and referral plans. Demonstrated understanding of instructions, follow-up care. 19:27 Discharged to home ambulatory. rv 19:28 Patient left the ED. rv NIH Stroke Scale - NIH Stroke Score Date: 06/03/2020 Time: 16:45 Total Score = 2 1a. Level of Consciousness (LOC) - 0(Alert) 1b. Level of Consciousness (LOC) (Year \T\ Age) - 0(Both) 1c. LOC Commands (Open \T\ Closes Eyes/Admin Secretary) - 0(Both) 2. Best Gaze (Lateral Gaze Paresis) - 0(Normal) 3. Visual Field Loss - 0(No visual loss) 4. Facial Palsy - 0(Normal) 5a. Left Arm: Motor (10-second hold) - 0(No drift) 5b. Right Arm: Motor (10-second hold) - 0(No drift) 6a. Left Leg: Motor (5-second hold - always test supine) - 0(No drift) 6b. Right Leg: Motor (5-second hold - always test supine) - 0(No drift) 7. Limb Ataxia (finger/nose \T\ heel/estrada - test with eyes open) - 0(Absent) 8. Sensory Loss (pinprick arms/legs/face) - 0(Normal) 9. Best Language: Aphasia (description/naming/reading) - 1(Mild to moderate aphasia) 10. Dysarthria (speech clarity - read or repeat words) - 1(Mild to Moderate) 11. Extinction and Inattention (visual/tactile/auditory/spatial/personal) - 0(No abnormality) Initials: NIH Stroke Scale - NIH Stroke Score Date: 06/03/2020 Time: 16:47 Total Score = 2 1a. Level of Consciousness (LOC) - 0(Alert) 1b. Level of Consciousness (LOC) (Year \T\ Age) - 0(Both) 1c. LOC Commands (Open \T\ Closes Eyes/Admin Secretary) - 0(Both) 2. Best Gaze (Lateral Gaze Paresis) - 0(Normal) 3. Visual Field Loss - 0(No visual loss) 4. Facial Palsy - 0(Normal) 5a. Left Arm: Motor (10-second hold) - 0(No drift) 5b. Right Arm: Motor (10-second hold) - 0(No drift) 6a. Left Leg: Motor (5-second hold - always test supine) - 0(No drift) 6b. Right Leg: Motor (5-second hold - always test supine) - 0(No drift) 7. Limb Ataxia (finger/nose \T\ heel/estrada - test with eyes open) - 0(Absent) 8. Sensory Loss (pinprick arms/legs/face) - 0(Normal) 9. Best Language: Aphasia (description/naming/reading) - 1(Mild to moderate aphasia) 10. Dysarthria (speech clarity - read or repeat words) - 1(Mild to Moderate) 11. 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 Was in patient for CVA, hb discharged today. hb 16:51 16:22 Reassessment: Pt returned from CT with Sherrell KAUR. Charge Nurse Asha zayas RN and Dr. Lundberg at bedside. hb
[2020-06-03 19:53] VITALS: TEMP 97.7
[2020-06-03 19:57] VITALS: BP 114/83; O2SAT 99
== END 2020-06-03 19:28 | disposition home or self-care (01) ==
LOC: ER 16:05
DX: R42 Dizziness and giddiness (principal); R47.9 Unspecified speech disturbances; F20.9 Schizophrenia, unspecified; R29.702 NIHSS score 2; F17.210 Nicotine dependence, cigarettes, uncomplicated; Z88.8 Allergy status to other drugs, medicaments and biological substances
CPT/HCPCS: 96361; 93005; 85025; 80048; 36415; 85610; 82947; 85730; 70450; 71045; 96360; 99284; J7030

== ENCOUNTER 2020-07-02 02:09 | Emergency (ER) | payer OTHER ==
--- OUTSIDE RECORDS SUMMARY | 2020-07-02 02:15 | XMS REPORT | Continuity of Care Document ---
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 Oral (F) 2018-04-14 06:00:00 98.4 F [facility] Respitory Rate 2018-04-13 18:00:00 [facility] Respitory Rate 2018-04-13 16:00:00 [facility] Respitory Rate 2018-04-13 15:00:00 [facility] BMI Calculated 2018-04-13 04:49:00 [facility] Weight 2018-04-13 04:49:00 [facility] Height 2018-04-13 04:49:00 157.48 cm [facility] Height 2018-04-12 21:49:00 177.8 cm [facility] Weight 2018-04-12 21:49:00 [facility] BMI Calculated 2018-04-12 21:49:00 [facility] Systolic (mm Hg) 2016-05-01 06:38:00 [facility] Diastolic (mm Hg) 2016-05-01 06:38:00 [facility] Respitory Rate 2016-05-01 06:38:00 [facility] Heart Rate 2016-05-01 06:38:00 [facility] Height 2016-05-01 01:44:00 175.26 cm [facility] BMI Calculated 2016-05-01 01:44:00 [facility] Weight 2016-05-01 01:44:00 [facility] Systolic (mm Hg) 2016-05-01 01:44:00 [facility] Diastolic (mm Hg) 2016-05-01 01:44:00 [facility] Heart Rate 2016-05-01 01:44:00 [facility] Respitory Rate 2016-05-01 01:44:00 [facility] Temperature Oral (F) 2016-05-01 01:44:00 98.1 F [facility] Respitory Rate 2016-04-30 13:02:00 [facility] Systolic (mm Hg) 2016-04-30 13:02:00 [facility] Diastolic (mm Hg) 2016-04-30 13:02:00 [facility] Heart Rate 2016-04-30 13:02:00 [facility] Temperature Oral (F) 2016-04-30 13:02:00 98.0 F [facility] BMI Calculated 2016-04-30 10:35:00 [facility] Height 2016-04-30 10:35:00 175.26 cm [facility] Weight 2016-04-30 10:35:00 [facility] Respitory Rate 2016-04-30 10:35:00 [facility] Temperature Oral (F) 2016-04-30 10:35:00 98.0 F [facility] Heart Rate 2016-04-30 10:35:00 [facility] Systolic (mm Hg) 2016-04-30 10:35:00 [facility] Diastolic (mm Hg) 2016-04-30 10:35:00 [facility] Respitory Rate 2016-04-07 16:22:00 [facility] Systolic (mm Hg) 2016-04-07 16:22:00 [facility] Diastolic (mm Hg) 2016-04-07 16:22:00 [facility] Temperature Oral (F) 2016-04-07 16:22:00 98.2 F [facility] Heart Rate 2016-04-07 16:22:00 [facility] Systolic (mm Hg) 2016-04-07 13:26:00 [facility] Diastolic (mm Hg) 2016-04-07 13:26:00 [facility] Temperature Oral (F) 2016-04-07 13:26:00 98.5 F [facility] Heart Rate 2016-04-07 13:26:00 [facility] Respitory Rate 2016-04-07 13:26:00 [facility] Heart Rate 2016-04-07 12:55:00 [facility] Temperature Oral (F) 2016-04-07 12:55:00 98.5 F [facility] Respitory Rate 2016-04-07 12:55:00 [facility] Systolic (mm Hg) 2016-04-07 12:55:00 [facility] Diastolic (mm Hg) 2016-04-07 12:55:00 [facility] Weight 2016-04-07 01:47:00 [facility] Height 2016-04-07 01:47:00 175.26 cm [facility] BMI Calculated 2016-04-07 01:47:00 [facility] Systolic (mm Hg) 2016-01-14 07:34:00 [facility] Diastolic (mm Hg) 2016-01-14 07:34:00 [facility] Respitory Rate 2016-01-14 07:34:00 [facility] Systolic (mm Hg) 2016-01-14 04:36:00 [facility] Diastolic (mm Hg) 2016-01-14 04:36:00 [facility] Respitory Rate 2016-01-14 04:36:00 [facility] Systolic (mm Hg) 2016-01-14 03:28:00 [facility] Diastolic (mm Hg) 2016-01-14 03:28:00 [facility] Respitory Rate 2016-01-14 03:28:00 [facility] Heart Rate 2016-01-14 02:47:00 [facility] Weight 2016-01-14 02:12:00 [facility] BMI Calculated 2016-01-14 02:12:00 [facility] Height 2016-01-14 02:12:00 175.26 cm [facility] Temperature Oral (F) 2016-01-14 02:12:00 98.5 F [facility] Heart Rate 2016-01-14 02:12:00 [facility] Diastolic (mm Hg) 2012-12-31 01:48:00 [facility] Systolic (mm Hg) 2012-12-31 01:48:00 [facility] Respitory Rate 2012-12-31 01:48:00 [facility] Heart Rate 2012-12-31 01:48:00 [facility] Temperature Oral (F) 2012-12-31 01:48:00 98.3 F [facility] Diastolic (mm Hg) 2012-12-30 20:21:00 [facility] Systolic (mm Hg) 2012-12-30 20:21:00 [facility] Respitory Rate 2012-12-30 20:21:00 [facility] Heart Rate 2012-12-30 20:21:00 [facility] Temperature Oral (F) 2012-12-30 20:21:00 97.5 F [facility] Heart Rate 2012-12-30 16:18:00 [facility] Temperature Oral (F) 2012-12-30 16:18:00 97 F [facility] Respitory Rate 2012-12-30 16:18:00 [facility] Diastolic (mm Hg) 2012-12-30 16:18:00 [facility] Systolic (mm Hg) 2012-12-30 16:18:00 [facility] Height 2012-12-29 02:00:00 175.26 cm [facility] Weight 2012-12-29 02:00:00 [facility] Procedures This patient has no known procedures. Plan of Care Planned Activity Planned Date Details Comments Source Future Scheduled 2019-11-30 INFLUENZA VACCINE [place] 00:00:00 [code = INFLUENZA VACCINE] Future Scheduled 2006 Hepatitis C [facility] 00:[facility]:00 screening (procedure) [code = 094328916] Future Scheduled 2004 COVID-19 VACCINE (1 [place] [facility] 00:00:00 of 2) [code = COVID-19 VACCINE (1 of 2)] Encounters Start End Encounter Admission Attending Care Care Encounter Source Date/Time Date/Time Type Type Clinicians Facility Department ID 2019-12-14 2019-12-15 Outpatient Diego [facility] [id number] 23:20:04 03:22:00 Elio Harryh 2019-12-14 2019-12-14 Emergency E [facility] [id number] 23:20:00 23:20:00 [facility] Cornejooria l [facility] 2018-04-18 2018-04-18 Outpatient Shawna [facility] [id number] 05:54:00 10:31:00 Sb Echeverria 2018-04-12 2018-04-14 Outpatient Mena [facility] [id number] 15:46:00 15:30:00 Eddie Deluna 06 2016-04-30 2016-05-01 Out[place] [id number] 19:27:00 01:00:00 Hiram Conrad 05 2016-04-30 2016-04-30 Outpatient Heide [place] [id number] 04:30:00 07:04:00 Santana 04 Jaya 2016-04-06 2016-04-07 Outpatient Constantino [facility] [id number] 19:26:00 10:46:00 Mirta andre 02 Yary 2016-01-13 2016-01-14 Outpatient Jacob [facility] [id number] 21:11:00 03:00:00 Noemi Shi 01 Results Test Description Test Time Test Comments Results Result Comments Source HEMATOLOGY 2019-12-15 9.2 [facility] 04:57:00 HEMATOLOGY 2019-12-15 4.56 [facility] 04:57:00 HEMATOLOGY 2019-12-15 13.3 [facility] 04:57:00 HEMATOLOGY 2019-12-15 39.7 [facility] nn 04:57:00 HEMATOLOGY 2019-12-15 87.0 [facility] nn 04:57:00 HEMATOLOGY 2019-12-15 04:57:00 Test Item Value Reference Range Interpretation Comme nts MCH (test code = MCH) 29.2 pg 27.0-31.0 [facility] JnrljqsYUCKSJKHDL9651-15-92 04:57:0033.6[facility]ann[facility]MATOLOGY 2019-12-15 04:57:0013.1[facility] BndsacmQKUMGNAXMK4818-60-65 04:57:51145Nzgruphi ApqnvnnWUUFFPGXRR8580-15-49 04:57:009.8[facility] KzsqnvwNXWGCWXVQX6090-28-45 04:57:0079.0[facility] AuahzgdKZFDPZYHGZ1136-34-16 04:57:0013.7[facility] STIUSYQLRW2554-72-32 04:57:006.5[facility] MckfafmOCNHHYYWSN9220-41-85 04:57:000.5 [facility] VqmucdaVTMUWUJVKD9854-13-39 04:57:000.3[facility] HermannHEMATOLOGY 2019-12-15 04:57:007.3[facility] PaggjcnXSAHCBLOWH7395-16-39 04:57:001.3[facility] ErlwjanZCEXNDUGPF1385-66-77 04:57:000.6[facility] LxvhggdILBJOHOPUG9417-45-52 04:57:00<3[facility] VkyezghJIPYVGNZRN0602-40-50 04:57:00<0.003[facility] ZnnhoxtXJCHPOSRVA7276-68-04 04:57:00<2 (12/14/19 11:57 PM)[facility] NHFKSJKKCI4119-40-84 04:57:003.4[facility] HermannCHEM AACLG5971-77-99 04:57:57906 [facility]annCHEM PWLNZ4224-42-12 04:57:007[facility] HermannCHEM PANEL 2019-12-15 04:57:001.10[facility] HermannCHEM CORSI0397-29-86 04:57:20577Whcsoiwx HermannCHEM UIIET0766-51-48 04:57:003.1[facility]annCHEM TEPVG1326-01-37 04:57:18055Nzlukkyk HermannCHEM YGRQZ1375-47-91 04:57:0027[facility]annCHEM MXPOQ6913-23-18 04:57:008.9[facility]annCHEM TFOEA7008-16-52 04:57:004.2 [facility]annCHEM RVZZC1225-79-45 04:57:008.1[facility]annCHEM PANEL 2019-12-15 04:57:00 Test Item Value Reference Range Interpretation Comments B/C Ratio (test code = B/C Ratio) 6 1 6-25 [facility]annCHE[facility] IGWJC3687-61-38 04:57:0089[facility]annCHEM PANEL 2019-12-15 04:57:007.6[facility]annCHEM GIDKK4940-16-85 04:57:0023[facility]annCHEM SOIAH9073-25-54 04:57:0016[facility]annCHEM OPHDQ4828-69-67 04:57:0038[facility]annCHEM KKMZT5351-58-38 04:57:000.3[facility]annCHEM PREMK5756-71-87 04:57:003.4[facility]annCHEM VGNZB4517-86-59 04:57:00 Test Item Value Reference Range Interpretation Comments A/G Ratio (test code = A/G Ratio) 1.2 1 0.7-1.6 [facility]annCARDIAC RUXEGWD7778-08-96 13:17:24517Bwtselux [facility] ILJZSQRCSIVP3492-92-75 13:17:0014.8[facility] EvxddojUABNAUQUXCEU7833-08-12 13:17:0093[facility] LrxkewbPWTDITNRSLFD9784-76-36 13:17:001.07[facility] SKCVQWXVJNTT4824-30-95 13:17:61227Recqmfnt JvntbgcMCKZVBTNNNQF8709-46-62 13:17:003.8[facility] OyxltrmQMUGGPTDPNGP0388-95-06 13:17:009.3[facility] IDGMRBFGEHZR0661-40-32 13:17:0023[facility] HhjuaoaRTTQROORLKMB1768-23-31 13:17:00 101[facility] UecxcuoDCYNGHHKWNEV9426-54-51 13:17:0094[facility] HermannELECTROLYTES 2018-04-18 13:17:0017[facility] QjypstkMCRLKVMLHW2341-73-60 13:17:0033.6[facility] ObewdprTHHAKWCJJS2938-88-33 13:17:0014.7[facility] VjtxozkIYSCBBRESX5580-06-34 13:17:00 Test Item Value Reference Range Interpretation Comments MCH (test code = MCH) 27.9 pg 27.0-31.0 [facility] UbccgizPGDYLXKLPM2602-44-17 13:17:0083.1[facility] HermannHEMATOLOGY 2018-04-18 13:17:009.9[facility] NiwwflqEWJHILYBNM9618-81-11 13:17:21582Orruhdyp JrkxwdvAVYILIQVXY9663-13-29 13:17:004.63[facility] XkzfnalJQVNVZSSCP3525-51-43 13:17:0012.9[facility] NyqthizSRWOQJSCFX7846-53-44 13:17:0038.4[facility] STMEHLESYM7107-93-75 13:17:008.2[facility] TjhsxdwPQPDBTQUEQ1390-70-00 13:17:000.9 [facility] WbqwbnvPXVRGAYHAG2854-42-08 13:17:000.1[facility] HermannHEMATOLOGY 2018-04-18 13:17:001.1[facility] GgipgdzKBDYPQJIUY5155-29-17 13:17:006.1[facility] BltlksuMASROWCKUG9252-15-66 13:17:0011.1[facility] QthzmsmOWULGOKNXV1186-94-57 13:17:000.9[facility] AyxlvxlTJNCCICMVV9054-21-38 13:17:000.2[facility] SQNAMRLWTG8663-32-17 13:17:0074.9[facility] JoeablpXINSQRNOTR4755-42-84 13:17:00 12.9[facility] EyaklldXUHVFGMFWP4784-81-89 13:17:00<1.7[facility] FFMNPSFBOH6080-64-30 13:17:003[facility] HermannCARDIAC PBOTDXN6019-40-61 10:11:00 <0.02[facility] HermannCHEM AQPNG0308-18-37 10:11:003.7[facility] HermannCHEM HJUHN1137-46-53 10:11:002.1[facility] GmxutfqWOSBKXJYQORB6006-60-51 10:11:0011.0 [facility] DkixaesSFPWGYHQVIZI6681-30-95 10:11:000.90[facility] HermannELECTROLYTES 2018-04-13 10:11:02227Cporhbvq GunqcmvCABBGOVEGPBU3233-33-86 10:11:008.2[facility] MmbsifpQZVOXIWLLMTT1809-75-60 10:11:0025[facility] XzwmsegFBWEALXWSIKI2547-56-61 10:11:83256Afialyeg MlsdvqtHQUEJLAWVVCN6170-46-81 10:11:004.0[facility] GBLDXMUVYFGP4780-37-25 10:11:78360Ujtzplyr RhdumqfCIACGFDBHHKN2900-21-25 10:11:0011[facility] TmbkpkwWRZKWPHXIHBK5985-78-64 10:11:0085[facility] ZYJNYMDWEZ2787-83-65 10:11:00 Test Item Value Reference Range Interpretation Comments MCH (test code = MCH) 27.9 pg 27.0-31.0 [facility] HwzvrxfYAPUWVKDDM4610-33-17 10:11:0033.5[facility] HermannHEMATOLOGY 2018-04-13 10:11:0036.7[facility] GdifkotDAYDHWYMFJ8280-98-35 10:11:0083.1[facility] TgwbedyYXMPOXFONS3026-16-95 10:11:004.42[facility] XmgyyibZXUJAIFESS6489-92-69 10:11:0012.3[facility] XmtwgrzTKLSOVJJLD4991-15-37 10:11:008.5[facility] YZVLORDWJN5464-59-62 10:11:009.5[facility] UuhmxykEXAQLBJNDZ6171-83-15 10:11:00 14.4[facility] MtddcnlELHJAVGSXR4111-26-33 10:11:77726Xzoqvsvs HermannHEMATOLOGY 2018-04-13 10:11:001.2[facility] XymqzrtIYXRYEYLQE5867-32-82 10:11:000.6[facility] SuksifcGBYLSBCNRX4068-84-66 10:11:000.2[facility] PxunpdbETIDELZDJE2514-30-48 10:11:000.0[facility] SemujouYVLBJRXUGT4481-70-90 10:11:002.3[facility] HDJTJQBXQI1810-13-10 10:11:000.3[facility] AcvcekyDJICYOOBEQ7095-90-04 10:11:006.5 [facility] EtlasgeDCDGOTNPYJ6729-11-07 10:11:0014.5[facility] HermannHEMATOLOGY 2018-04-13 10:11:006.7[facility] JjrmzxkKOBNELIULC5616-76-59 10:11:0076.2[facility] HermannPARATHYROID VPXJWVJ2358-87-60 10:11:001.13[facility] HermannPARATHYROID KHITTXJ4703-04-58 10:11:001.17[facility]annURINE AND SJKYS8723-99-47 06:21:00 None Seen (04/13/18 12:21 AM)[facility] BOSSL3590-55-48 06:21:001 [facility] ILMZB0095-11-82 06:21:001[facility]annUR[facility] AND VINYX4199-85-59 06:21:00 Test Item Value Reference Range Interpretation Comments UA Spec Grav (test code = UA Spec 1.009 1 Grav) [facility] XRNPA8895-69-68 06:21:00Clear (04/13/18 12:21 AM) [facility] HKLOP6865-95-43 06:21:00<=1.0[facility] AND KQYOK2184-01-20 06:21:00Negative *NA*(04/13/18 12:21 AM)[facility] URINE AND MEOFX8586-03-61 06:21:00Negative *NA*(04/13/18 12:21 AM)[facility] AWRGF9081-47-03 06:21:00Trace *ABN*(04/13/18 12:21 AM)[facility] IXJJC2371-89-80 06:21:00Negative (04/13/18 12:21 AM)[facility] DJDRY9956-25-26 06:21:00Negative *NA*(04/13/18 12:21 AM) [facility] CMDLK5517-45-62 06:21:00 Test Item Value Reference Range Interpretation Comments UA pH (test code = UA pH) 7.0 1 5.0-8.0 [facility] YLHLL5987-48-87 06:21:00Negative (04/13/18 12:21 AM) [facility] COQIS1035-47-03 06:21:00Negative (04/13/18 12:21 AM) [facility]annCARDIAC NTQUKYK2773-05-54 05:42:00<0.02[facility] ZINSLBRFSY2409-17-76 05:42:00Negative *NA*(04/12/18 11:42 PM)[facility] BACTERIAL - TGRCHMCJ7871-01-60 05:18:00Negative (04/12/18 11:18 PM)[facility]annDRUG BLEXYT5583-65-89 23:22:00Negative *NA*(04/12/18 5:22 PM)[facility]annDR[facility] YCWRXI1881-00-20 23:22:00Negative *NA*(04/12/18 5:22 PM)[facility]annDR[facility] KBQNQI6156-32-93 23:22:00Negative *NA*(04/12/18 5:22 PM)[facility]annDR[facility] ETROKD2860-30-74 23:22:00Negative *NA*(04/12/18 5:22 PM)[facility]annDR[facility] UAFSHB4825-82-78 23:22:00Negative *NA*(04/12/18 5:22 PM)[facility]annDR[facility] IJOGKU3775-13-89 23:22:00See Note (04/12/18 5:22 PM)[facility] DRUG EGCOHP8741-25-16 23:22:00Negative *NA*(04/12/18 5:22 PM)[facility] DRUG NLXVTW6014-52-63 23:22:00Negative *NA*(04/12/18 5:22 PM)[facility] CARDIAC LFXBQIH0326-57-29 22:38:000.02[facility] HermannCARDIAC HNILFQC9249-55-94 22:38:0050[facility] HermannCHEM GUDED6284-63-68 22:38:48700Gnimyzaw HermannCHEM LZYLH6819-56-68 22:38:0017[facility] HermannCHEM VYMRZ7909-68-56 22:38:0023 [facility]annCHEM SYBUW8216-77-52 22:38:004.0[facility] HermannCHEM PANEL 2018-04-12 22:38:007.4[facility] HermannCHEM LEYZD1307-41-30 22:38:000.3[facility] HermannCHEM VQQDL6727-19-48 22:38:0035[facility] HermannCHEM UBWZB0331-93-11 22:38:41107Eohnjmbd HermannCHEM DRXKJ8776-46-86 22:38:009.4[facility] HermannCHEM BYSET7620-43-19 22:38:0032[facility] HermannCHEM ZQXOQ7268-10-20 22:38:004.2 [facility]annCHEM SGYDK1415-32-59 22:38:61034Yquosvgd HermannCHEM PANEL 2018-04-12 22:38:000.80[facility] HermannCHEM CPSNM7520-48-13 22:38:0012[facility] HermannCHEM KWCAG5174-74-73 22:38:0093[facility] HermannCHEM OUJMS3346-12-74 22:38:00 Test Item Value Reference Range Interpretation Comments A/G Ratio (test code = A/G Ratio) 1.2 1 0.7-1.6 [facility] HermannCHEM DWPGL8237-35-79 22:38:003.4[facility] HermannCHEM PANEL 2018-04-12 22:38:00 Test Item Value Reference Range Interpretation Comments B/C Ratio (test code = B/C Ratio) 15 1 6-25 [facility] HermannCHEM VEUTM3202-93-97 22:38:008.2[facility]annHEMATOLOGY 2018-04-12 22:38:0032.1[facility] BstgpxdPJXQHPALNK8331-69-71 22:38:00 Test Item Value Reference Range Interpretation Comments MCH (test code = MCH) 27.4 pg 27.0-31.0 [facility] LdvpxtaTMJNKGZBCH3972-48-10 22:38:80365Zyrlockf HermannHEMATOLOGY 2018-04-12 22:38:0014.4[facility] XklwkxiZYXPRQFIKH9504-03-93 22:38:009.1[facility] GajstiiUFDMQUYFBV6413-76-73 22:38:0014.0[facility] KmepwawTRYWMBYEES9850-25-27 22:38:005.18[facility] LtniesnEXXYOMJGEB7431-92-11 22:38:0014.2[facility] QICCWQTGTV8969-89-03 22:38:0044.2[facility] GiiyrlhZOLACVOQVX7436-48-91 22:38:00 85.3[facility] CjfvklqOXFQTBZJWI9121-43-06 22:38:000.2[facility] HermannHEMATOLOGY 2018-04-12 22:38:000.1[facility] XkxcunxRXTXWPXVLA4056-77-07 22:38:002.7[facility] ClmkpmxTDSCANOTYH1575-18-14 22:38:000.4[facility] ZufjfksXQZOLOZQIB0791-71-93 22:38:000.6[facility] AfvyftdQSYIACZJGF9895-69-99 22:38:0013.0[facility] AOOJHDJONG4112-98-52 22:38:004.1[facility] RcofyflWNCLWONKVD3705-53-37 22:38:000.0 [facility] CuphtwgLGTOKVMPCU8632-62-62 22:38:000.0[facility] HermannHEMATOLOGY 2018-04-12 22:38:00Normal (04/12/18 4:38 PM)[facility] HgdonrbGFDTHTNBUX5745-30-98 22:38:00Normal (04/12/18 4:38 PM)[facility] ZlparwrEKIMVWGGLF7192-01-37 22:38:00 92.9[facility] GehjlneTZZVEMLCTY6947-52-25 22:38:00Moderate *ABN*(04/12/18 4:38 PM)[facility] HermannCARDIAC ZURIXYI3113-34-55 03:21:958475Tdpuulkm [facility] UOEKGJKSWZRD5306-67-58 03:21:0014.1[facility] CbbvpskOONUWTCOZSQO1660-31-59 03:21:0011[facility] DdccqctDGOUPNDUCBMD7822-25-59 03:21:003.2[facility] BGVELPUYYERF6772-98-45 03:21:001.3[facility] ZuappivSRWANEARJXUZ5133-47-15 03:21:000.4[facility] BgscbcrGKECRGGHFZDQ8552-17-62 03:21:53334Ewhakgfi [facility] UTEBCQPFXBUM9007-22-28 03:21:004.2[facility] HrxxnlyWSTYHAHGXFAW7320-34-66 03:21:0048[facility] NynowseZFHCQSVLEIHQ9009-12-11 03:21:45857Egrhhiaq [facility] FVDYCONBNLAA8995-29-88 03:21:0075[facility] SvqjzihUDDRBPJLYVES7606-91-61 03:21:00 11[facility] MpvkaqpZFNVGCXUAWLE5502-88-44 03:21:004.1[facility] HermannELECTROLYTES 2016-05-01 03:21:001.00[facility] LccufuuIGBPQCMTDBQY2641-24-78 03:21:28796 [facility] HmmchcxZOBERJZKNIUT4554-65-64 03:21:10832Bhakuhna HermannELECTROLYTES 2016-05-01 03:21:0024[facility] RtssevmULPQXSLLXCET7426-97-77 03:21:007.4[facility] HnxuuzvYRAMRLZCNRYY7466-80-11 03:21:009.1[facility] HhywpknRDWDYTCWDMFP3242-24-04 03:21:0052[facility] QcwnbjiJLDONAYAFO8524-24-11 03:21:0086.0[facility] YJXLRLRFMK1716-90-18 03:21:00 Test Item Value Reference Range Interpretation Comments MCH (test code = MCH) 29.7 pg 27.0-31.0 [facility] ZalyaeaEYHJZWGADC3069-91-90 03:21:0041.0[facility] HermannHEMATOLOGY 2016-05-01 03:21:004.77[facility] AtkdsgyOXCKOGYODX9018-65-27 03:21:008.8[facility] GhsukbcRSRRPJZDPE7418-92-17 03:21:0014.2[facility] EiayheuDSCRRRYZAT9745-12-53 03:21:53862Dfujkkpq QthdgqcMLQDJWENHY6551-08-92 03:21:0034.5[facility] FVJHSXTUCD5512-60-41 03:21:0013.5[facility] UwahfbzXOQLCVUZMJ7079-25-72 03:21:00 8.9[facility] AvnrziuMWDWQRWCME9369-86-80 03:21:0021.1[facility]annHEMATOLOGY 2016-05-01 03:21:0011.7[facility] DixmdykJQZEJXDSTH6606-54-05 03:21:001.8[facility] KhgcrzgOJRARQZMZU7570-47-09 03:21:005.7[facility] QwrwnutIWEKYZFVRP4766-46-93 03:21:001.7[facility] BdhqdsfMEYKYIBEYP5682-08-20 03:21:000.8[facility] YMKVJCCSYR8618-92-26 03:21:000.1[facility] NbciappFTXNTEKSZC1416-32-82 03:21:001.0 [facility] ShqsggcKNCHQWLSRP3722-80-95 03:21:000.2[facility]annHEMATOLOGY 2016-05-01 03:21:0064.7[facility] FobyymtROZTRDGQTP6110-35-22 04:48:00<0.003 [facility] AliffdmVOFZIPEJVU6822-09-64 04:48:00<3[facility]annDRUG SCREEN 2016-04-07 02:43:00See Note *NA*(04/06/16 [...] pH) 5.5 1 5.0-8.0 [facility] FPZWP5801-49-89 02:43:00 Test Item Value Reference Range Interpretation Comments UA Spec Grav (test code = UA Spec 1.025 1 Grav) [facility] MMEXO7047-84-23 02:43:00Negative (04/06/16 8:43 PM) [facility] KUXSG0079-90-69 02:43:000.2[facility] QDNOK0731-83-51 02:43:00Negative (04/06/16 8:43 PM)[facility] AQWBY8653-65-10 02:43:00Small *ABN*(04/06/16 8:43 PM)[facility] VPAUR8884-31-98 02:43:00Trace *ABN*(04/06/16 8:43 PM)[facility] XNXDB4934-26-01 02:43:00Clear (04/06/16 8:43 PM)[facility] STOOL 2016-04-07 02:43:00Yellow *NA*(04/06/16 8:43 PM)[facility]annCARDIAC ENZYMES 2016-04-07 02:38:20906Eakldhvn HermannCHEM VCMPF1909-44-68 02:38:34049Hbrtzllt HermannCHEM PUZQG1018-77-52 02:38:009.2[facility]annCHEM YYXZC2178-81-97 02:38:007.6[facility]annCHEM LGZYO4005-23-22 02:38:0022[facility]annCHEM AOLGS6704-73-90 02:38:0043[facility]annCHEM NDXEB3117-59-78 02:38:004.4 [facility]annCHEM JFBND0777-54-23 02:38:0022[facility]annCHEM PANEL 2016-04-07 02:38:38264Cxjavwrz HermannCHEM SGOBQ7986-78-09 02:38:000.81[facility] HermannCHEM MKFIK9276-11-75 02:38:43181Srqotzbp HermannCHEM KGGXE5564-90-43 02:38:004.4[facility] HermannCHEM NRCRC5849-71-76 02:38:000.9[facility]annCHEM XKJIG3937-00-26 02:38:0034[facility]annCHEM OPPGQ6821-89-42 02:38:0063 [facility]annCHEM ZXVUF5801-56-81 02:38:0014[facility] HermannCHEM PANEL 2016-04-07 02:38:0017.4[facility]annCHEM DZAPB9341-67-68 02:38:0017[facility]annCHEM BTIMJ1557-53-94 02:38:003.2[facility]annCHEM BWCJJ4151-69-26 02:38:001.4[facility] VfdbrvkIPEBGVDREM6083-90-06 02:38:001.7[facility] GRAEUWUVUA4934-77-59 02:38:001.0[facility] JjkfliiJRIESUBVDF2674-58-33 02:38:000.4 [facility] DmyabvwIVNYEHLEYK2801-86-82 02:38:004.2[facility]annHEMATOLOGY 2016-04-07 02:38:009.2[facility] MeqwucmVSVQUVXYKH6224-40-00 02:38:000.6[facility] IpuozwlVWJHUXEEBT1850-72-80 02:38:000.1[facility] VbedslqBMYPKHDPQV4710-41-13 02:38:0026.3[facility] HjstuueEXIMTSYLJF5789-63-55 02:38:0063.1[facility] BVDESZUMIS4452-41-38 02:38:006.6[facility] DahjnxqTKNMBZXDWR2794-78-26 02:38:00 42.9[facility] TzwctxcSFWUOIDVYH2100-31-59 02:38:004.86[facility]annHEMATOLOGY 2016-04-07 02:38:0014.4[facility] GytrvxsBLJDVAWLTY2053-58-94 02:38:0088.3[facility] BvbuimkWPFZOOFRHJ3487-33-00 02:38:00 Test Item Value Reference Range Interpretation Comments MCH (test code = MCH) 29.6 pg 27.0-31.0 [facility] RvewluvCZQMYZFWIX5638-26-50 02:38:0033.6[facility]annHEMATOLOGY 2016-04-07 02:38:009.4[facility] UasvqhrVMTSNBNJPE9843-75-85 02:38:0013.4[facility] GxlibkuPKPULPSBDR0184-21-48 02:38:25257Spkfxlbq BljhcpkZBYMPZSCAL1748-70-49 02:38:00<1.7[facility] FraklmcQMEIVOODBA3524-30-21 02:38:00<2 (04/06/16 8:38 PM)[facility] HermannVIRAL - PLYIPKKE0734-08-32 02:38:00Negative (04/06/16 8:38 PM) [facility]annVIRAL - GSPRWDDM4078-05-40 02:38:00Negative (04/06/16 8:38 PM) [facility] GeamxbfTZULTIMXF9688-17-45 06:42:008[facility] FaewzbuYUTUFMVPZ2707-93-44 06:42:002.5[facility] LdzfysoUPPJJPRHF4539-10-84 06:42:0016.9[facility] OYULXAZSS8075-73-00 06:42:001.6[facility] YyfofsiYZRVFOWGZ8180-96-41 06:42:58161 [facility] JcuphybQOYONAAWT5572-74-30 06:42:99008Jndefqhw HermannCHEMISTRY 2012-12-30 06:42:0026[facility] XfkagfeZACWTUBGT8286-90-70 06:42:003.9[facility] FzrhbhoDLLATGTUU6759-94-52 06:42:0047[facility] OazyscpTPWXHGLEL6005-08-39 06:42:006.4[facility] HrwnjzzORHMXUHTT3290-90-40 06:42:0031[facility] NKLLGGHJL6552-72-66 06:42:009.0[facility] AbjyrkiEJFRGBXDS9906-64-31 06:42:000.4 [facility] OfvjubnJPXEFMJQN3140-13-27 06:42:11000Xitjnkwh HermannCHEMISTRY 2012-12-30 06:42:0024[facility] ZxvikhtTGWYKFARO4617-02-41 06:42:44245Rdlyoqug ThddfkmHRGEPJMUY9194-46-76 06:42:003.9[facility] LvicuxePSYTYWGXB2904-72-17 06:42:008[facility] RjatnrvNODHOKXFP6251-48-34 06:42:001.0[facility] FJTNYMVKRX3675-85-02 06:42:00 Test Item Value Reference Range Interpretation Comments MCH (test code = MCH) 30.2 pg 27.0-31.0 N [facility] YobayydDPQDAAPQVT5393-29-37 06:42:92521Onaqjbdo HermannHEMATOLOGY 2012-12-30 06:42:0010.1[facility] FaykqvtWQXQPLIOUL3608-59-96 06:42:0013.4[facility] RdzpgfrMQUKDKSSOJ5305-56-38 06:42:0039.4[facility] SrchvbtHQESNEKDLQ8865-05-39 06:42:0089.5[facility] GkbjjrxOEHMCOBODK0189-50-22 06:42:0013.3[facility] DJOKWJDACS8855-46-72 06:42:0033.7[facility] TmuoeyyFPZMCWSSJT8375-38-36 06:42:00 12.5[facility] WqgzganUTDBZVAYOZ6196-41-24 06:42:004.40[facility] HermannHEMATOLOGY 2012-12-30 06:42:009.4[facility] ZlrcuhwCMGDEXFRLI6820-22-39 06:42:0010.8[facility] CicvygpBHWXGWVGHO8159-24-68 06:42:0079.6[facility] FhwyhvhNJAWCGLZYV1978-86-75 06:42:000.1[facility] AotvwczXIZFJPIGRE1169-96-92 06:42:000.1[facility] Brodnax APGJOYZWBL5014-64-94 06:42:009.9[facility] VmqknxxUMPZRWDXPN3277-67-25 06:42:001.2 [facility] IjuusvzMUHFLGXUBN9024-58-26 06:42:001.3[facility] HermannCHEMISTRY 2012-12-29 09:00:492.0[facility] LrkascfOAJHNLFPM2766-13-78 03:30:38See Note 5(12/28/2012 22:30:38)[facility] UgymtbuBXWJCDHWW2606-52-34 03:30:38Negative *NA*(12/28/2012 22:30:38)[facility] ZvrvuakWSEBFWYNS0574-97-04 03:30:38Positive *ABN*(12/28/2012 22:30:38)[facility] PumseqoGALEHMNOW7625-02-46 03:30:38Negative *NA*(12/28/2012 22:30:38)[facility] LwejbwfVDLFVFVGH1257-69-65 03:30:38Negative *NA*(12/28/2012 22:30:38)[facility] DmmgfzuQQSFNQCZD6256-56-15 03:30:38Negative *NA*(12/28/2012 22:30:38)[facility] VgvlgsdYFLTRGJPO0441-52-35 03:30:38Negative *NA*(12/28/2012 22:30:38)[facility] RpoqgepGROTZZPDN0655-80-94 03:30:38Negative *NA*(12/28/2012 22:30:38)[facility] VksnsonXDVGKLPSAZ6890-72-38 03:30:38Negative mg/dL *NA*(12/28/2012 22:30:38)[facility] QgalflvCNXPSOMCVG3957-51-00 03:30:38 Negative *NA*(12/28/2012 22:30:38)[facility] ZbowtmgXKZFGIEEZC8169-60-13 03:30:38 Negative (12/28/2012 22:30:38)[facility] YnesiyqQIHERTTDCJ1331-28-88 03:30:380.2 [facility] HwoqzyfPZYCNNAEOS4694-96-02 03:30:38Negative (12/28/2012 22:30:38) [facility] VauosuoJNBERFUAXC0342-10-33 03:30:38Negative (12/28/2012 22:30:38) [facility] QxrakupUJEESLEJPG0100-12-08 03:30:38 Test Item Value Reference Range Interpretation Comments UA pH (test code = UA pH) 7.0 1 5.0-8.0 N [facility] EedwerdVYNWNVPKOB9570-68-84 03:30:38Negative mg/dL (12/28/2012 22:30:38)[facility] YfrpxvsQPFCJMTSYE9863-33-57 03:30:38 Test Item Value Reference Range Interpretation Comments UA Spec Grav (test code = UA Spec 1.010 1 N Grav) [facility] AkqwtxgHZMHNNDIMV9492-35-55 03:30:38Negative mg/dL (12/28/2012 22:30:38)[facility] SixlxsdTYEYCCXFZM5244-81-64 03:30:38Clear (12/28/2012 22:30:38)[facility] MjzstvzMFPWHGLVPG8511-65-12 03:30:38Yellow *NA*(12/28/2012 22:30:38)[facility] AolovgrYTWFMSUEIQ8479-44-86 03:30:21None Seen (12/28/2012 22:30:21)[facility] HggsytuHJZMLWGYDL8712-71-84 03:30:21Performed (12/28/2012 22:30:21)[facility] McodoscNAHPAIEHPI7287-16-29 03:30:21None Seen (12/28/2012 22:30:21)[facility] YozwadoPUKCXHVATI3819-36-45 03:30:210-2 /HPF (12/28/2012 22:30:21)[facility] UedrkwbLWBZNFPRLK4954-20-62 03:30:21None Seen (12/28/2012 22:30:21)[facility] WPRUZYW8602-10-23 02:00:00Negative (12/28/2012 21:00:00)[facility] HxefevbHNOBGYNDO7525-80-02 01:56:0084.6[facility] KknyzrlNTWKESJED9597-66-15 01:56:0037.0[facility] KrskpkbCMGPTXUOC3853-43-41 01:56:00-4[facility] VrquxcnWXRBAYBSP8508-00-28 01:56:0020[facility] CXHDPGJMN1214-79-33 01:56:0049[facility] RxkpceyBHHRVOLZA9840-05-89 01:56:007.41 [facility] XylsyriCSXDUQCBY9120-48-85 01:56:0031[facility] HermannCHEMISTRY 2012-12-29 01:56:004.4[facility] SvxrrsaZJNSGUOER5638-53-79 01:56:0079[facility] GocrfcnVOXXBKGPE1298-79-04 01:56:000.079[facility] XwyiikrFKYPKJIIO7348-49-71 01:56:0093[facility] QiaovncPHHYXXRDU7116-49-57 01:56:006[facility] HermannCHEMISTRY 2012-12-29 01:56:001.1[facility] XellagyYEUSCJBFB2309-95-70 01:56:73864Zdiacmas CquscwiRLKVKSJDR5983-70-40 01:56:94155Psprqqci DwdsytiOWNBLLVCM6786-02-35 01:56:44363Ynqerzlk SbnczxgUFHEIXHJI1707-36-96 01:56:0021[facility] Bro[facility]ax EBXHZDCJB9815-77-48 01:56:003.emorial GjbmqsdGWMKTPXZR2720-52-71 01:56:008.6 [facility] WcwqoneXGIOANMBD1219-03-30 01:56:0019.1[facility] HermannHEMATOLOGY 2012-12-29 01:56:001.3[facility] JtewvvmLZWQDFOUBV5831-42-99 01:56:00 Test Item Value Reference Range Interpretation Comments K-time (test code = K-time) 2.2 min 0.6-2.3 N [facility] QmxlbdoEYPOEDXJBM0615-79-66 01:56:00 Test Item Value Reference Range Interpretation Comments Angle (test code = Angle) 64 degrees 64-80 N [facility] ResourcesIhfgfrvGALMPSIKDE7657-94-78 01:56:00 Test Item Value Reference Range Interpretation Comments Max Amp (test code = Max Amp) 58 mm 52-71 N [facility] ResourcesKogdrjfYAXYECUMAH0783-00-66 01:56:00 Test Item Value Reference Range Interpretation Comments R-time (test code = R-time) 0.8 min 0.4-0.7 H [facility] JieamxcWHPWUMZGTF9641-68-88 01:56:00 Test Item Value Reference Range Interpretation Comments Split Point (test code = Split Point) 0.6 min [facility] WtczniySAOXKSRWJW9191-70-98 01:56:00 Test Item Value Reference Range Interpretation Comments ACT (TEG) (test code = ACT (TEG)) 121 s 86-118 H [facility] FskcfnvDEFTVFQZDQ8513-13-84 01:56:006.9[facility] HermannHEMATOLOGY 2012-12-29 01:56:0014.8[facility] NyafvlkIGRMMBLUDI9424-61-93 01:56:005.05[facility] QjdgkniOHOWKFSZLG5746-95-12 01:56:0044.5[facility] JwzauvbZZPNCMHIGL7083-82-44 01:56:0011.8[facility] RoiiiraGDPQQJVLCU5166-36-71 01:56:009.2[facility] IUUINMNPLT0935-26-05 01:56:0033.2[facility] NlicafyPFTNPCWFGS5971-12-90 01:56:00 88.1[facility] ZrcuaqaIVQMIWTPTR5938-37-76 01:56:00 Test Item Value Reference Range Interpretation Comments MCH (test code = MCH) 29.3 pg 27.0-31.0 N [facility] HcwrumkHJVLDAQEDT0643-93-92 01:56:76355Dxskunan HermannHEMATOLOGY 2012-12-29 01:56:0012.4[facility] HdbvikrHFTVZFIDZR6811-55-32 01:56:0014.0[facility] JoazduoCUKHDCZORH4468-17-50 01:56:00Normal (12/28/2012 20:56:00)[facility] UJJNUWPAYQ2638-70-23 01:56:006.0[facility] MjwquamIZRJKEBDEW8614-33-31 01:56:00 72.0[facility] SdmyikrMDELMJVWTA4895-77-52 01:56:000.9[facility] HermannHEMATOLOGY 2012-12-29 01:56:001.7[facility] RfzxkoeXVMJYGVXQR3701-73-84 01:56:009.2[facility] VjscoyqTFXRHDUEQN6718-70-12 01:56:008.0[facility] WnmeklaTDFLWUPCYC1423-18-79 01:56:000.0[facility] BoubgbkBQCBKOTFTE6822-53-94 01:56:00Normal (12/28/2012 20:56:00)[facility]
[2020-07-02 03:21] LABS: Absolute Lymphocytes (CBC) 1.2 K/uL (0.7-4.9); Basophils % 0.4 % (0-1.3); Hematocrit 45.9 % (39.6-49.0); Lymphocytes % 17.4 % (15.3-44.8); MPV 10.1 fL (7.6-11.3); RBC Red Blood Cell Count 5.39 M/uL (4.33-5.43)
[2020-07-02 03:23] LABS: Protime INR 1.05
[2020-07-02 03:39] LABS: ALT/SGPT 139 U/L (12-78); Albumin 4.7 g/dL (3.4-5.0); Alkaline Phosphatase 39 U/L (45-117); BUN Blood Urea Nitrogen 12 mg/dL (7-18); Bicarbonate 24 mmol/L (21-32); Bilirubin Direct 0.3 mg/dL (0-0.2); Bilirubin Total 1.2 mg/dL (0.2-1.0); Glucose Level 99 mg/dL (74-106); Potassium 3.4 mmol/L (3.5-5.1); Protein, Total 8.2 g/dL (6.4-8.2); Sodium Level 139 mmol/L (136-145)
[2020-07-02 03:40] LABS: AST/SGOT 398 U/L (15-37)
[2020-07-02 03:53] LABS: Barbiturates NEGATIVE (NEGATIVE); Benzodiazepines NEGATIVE (NEGATIVE); Cocaine NEGATIVE (NEGATIVE); METHAMPHETAM POSITIVE (NEGATIVE); Methadone NEGATIVE (NEGATIVE); Opiates NEGATIVE (NEGATIVE); Phencyclidine NEGATIVE (NEGATIVE); THC Cannibis NEGATIVE (NEGATIVE)
--- NOTE | 2020-07-02 04:33 | EDPHYS ---
Physician Documentation [facility] Name: Alex Abbott Age: 30 yrs Sex: Male : 1990 Arrival Date: 07/02/2020 Time: 02:10 Bed 17 Private MD: ED Physician Roshan Gomez HPI: 07/02 04:25 This 30 yrs old Male presents to ER via Ambulatory with complaints of Psych sherif Problem. 04:25 The patient presents to the emergency department with depression, paranoia, psychosis, sherif a history of substance abuse, Type: methamphetamines. Onset: The symptoms/episode began/occurred 2 day(s) ago. Past psychiatric history: Prior diagnosis: addiction history, bipolar disorder, depression, schizophrenia. Associated signs and symptoms: Pertinent positives; anxiety, paranoia, substance abuse. Severity of symptoms: At their worst the symptoms were mild in the emergency department the symptoms are unchanged. The patient has not experienced similar symptoms in the past. Historical: - Allergies: 02:15 lithium; jb4 02:15 quetiapine fumarate; jb4 02:15 RISPERIDONE; jb4 02:15 ziprasidone HCl; jb4 - Home Meds: 02:15 Cogentin Oral [Active]; thorazine [Active]; Wellbutrin Oral [Active]; jb4 - PMHx: 02:15 Anxiety; Bipolar disorder; Depression; drug overdose; Pneumonia; Schizophrenia; jb4 ADD/ADHD; - PSHx: 02:15 None; jb4 - Immunization history:: Adult Immunizations unknown. - Social history:: Smoking status: Patient reports the use of cigarette tobacco products, unknown amount Patient uses alcohol, street drugs, Methamphetamine (Meth). - Family history:: not pertinent. ROS: 04:25 Constitutional: Negative for fever, chills, and weight loss, Eyes: Negative for injury, sherif pain, redness, and discharge, ENT: Negative for injury, pain, and discharge, Neck: Negative for injury, pain, and swelling, Cardiovascular: Negative for chest pain, palpitations, and edema, Respiratory: Negative for shortness of breath, cough, wheezing, and pleuritic chest pain, Abdomen/GI: Negative for abdominal pain, nausea, vomiting, diarrhea, and constipation, Back: Negative for injury and pain, : Negative for injury, bleeding, discharge, and swelling, MS/Extremity: Negative for injury and deformity, Skin: Negative for injury, rash, and discoloration, Allergy/Immunology: Negative for hives, rash, and allergies, Endocrine: Negative for neck swelling, polydipsia, polyuria, polyphagia, and marked weight changes, Hematologic/Lymphatic: Negative for swollen nodes, abnormal bleeding, and unusual bruising. 04:25 Neuro: Positive for weakness. 04:25 Psych: Positive for depression. Exam: 04:25 Constitutional: This is a well developed, well nourished patient who is awake, alert, sherif and in no acute distress. Head/Face: Normocephalic, atraumatic. Eyes: Pupils equal round and reactive to light, extra-ocular motions intact. Lids and lashes normal. Conjunctiva and sclera are non-icteric and not injected. Cornea within normal limits. Periorbital areas with no swelling, redness, or edema. ENT: Nares patent. No nasal discharge, no septal abnormalities noted. Tympanic membranes are normal and external auditory canals are clear. Oropharynx with no redness, swelling, or masses, exudates, or evidence of obstruction, uvula midline. Mucous membranes moist. Neck: Trachea midline, no thyromegaly or masses palpated, and no cervical lymphadenopathy. Supple, full range of motion without nuchal rigidity, or vertebral point tenderness. No Meningismus. Chest/axilla: Normal chest wall appearance and motion. Nontender with no deformity. No lesions are appreciated. Cardiovascular: Regular rate and rhythm with a normal S1 and S2. No gallops, murmurs, or rubs. Normal PMI, no JVD. No pulse deficits. Respiratory: Lungs have equal breath sounds bilaterally, clear to auscultation and percussion. No rales, rhonchi or wheezes noted. No increased work of breathing, no retractions or nasal flaring. Abdomen/GI: Soft, non-tender, with normal bowel sounds. No distension or tympany. No guarding or rebound. No evidence of tenderness throughout. Back: No spinal tenderness. No costovertebral tenderness. Full range of motion. Skin: Warm, dry with normal turgor. Normal color with no rashes, no lesions, and no evidence of cellulitis. MS/ Extremity: Pulses equal, no cyanosis. Neurovascular intact. Full, normal range of motion. Neuro: Awake and alert, GCS 15, oriented to person, place, time, and situation. Cranial nerves II-XII grossly intact. Motor strength 5/5 in all extremities. Sensory grossly intact. Cerebellar exam normal. Normal gait. 04:25 Psych: Behavior/mood is anxious, Affect is animated, Oriented to person, place, time, Patient has no thoughts/intents to harm self or others. 04:33 ECG was reviewed by the Attending Physician. sherif Vital Signs: 02:15 BP 146 / 105; Pulse 100; Resp 18; Temp 98.0; Pulse Ox 100% on R/A; Weight 61.23 kg (R); jb4 Height 5 ft. 9 in. (175.26 cm); Pain 0/10; 04:49 BP 132 / 98; Pulse 74; Resp 16; Pulse Ox 100% on R/A; jb4 02:15 Body Mass Index 19.94 (61.23 kg, 175.26 cm) jb4 MDM: 03:32 Patient medically screened. sherif 04:29 Differential diagnosis: drug withdrawal. acute psychotic break, depression, psychosis sherif secondary to non-compliance. Data reviewed: vital signs, nurses notes, lab test result(s), EKG. Data interpreted: lunchroom monitor: rate is 100 beats/min, rhythm is regular, Pulse oximetry: on room air is 100 %. Test interpretation: by ED physician or midlevel provider: ECG. Counseling: I had a detailed discussion with the patient and/or guardian regarding: the historical points, exam findings, and any diagnostic results supporting the discharge/admit diagnosis, lab results, the need to transfer to another facility, for higher level of care, [facility] does not immediately have the required specialist. 07/02 02:27 Order name: Acetaminophen 07/02 02:27 Order name: Basic Metabolic Panel 07/02 02:27 Order name: CBC with Diff 07/02 02:27 Order name: ETOH Level 07/02 02:27 Order name: Hepatic Function; Complete Time: 04:24 07/02 02:27 Order name: PT-INR; Complete Time: 04:24 07/02 02:27 Order name: Ptt, Activated; Complete Time: 04:24 07/02 02:27 Order name: Salicylate; Complete Time: 04:24 07/02 02:27 Order name: Urine Drug Screen; Complete Time: 04:24 bb 07/02 02:27 Order name: Acetaminophen Level; Complete Time: 04:24 EDMS 04 02:27 Order name: Basic Metabolic Panel; Complete Time: 04:24 EDMS 07/02 02:27 Order name: CBC with Automated Diff; Complete Time: 04:24 EDMS 07/02 02:27 Order name: Alcohol Serum/Plasma; Complete Time: 04:24 EDMS 04 02:27 Order name: EKG; Complete Time: 02:28 bb 07/02 02:27 Order name: EKG - Nurse/Tech; Complete Time: 03:14 bb 07/02 02:27 Order name: IV Saline Lock; Complete Time: 03:14 bb 07/02 02:27 Order name: Labs collected and sent; Complete Time: 03:14 bb 07/02 02:27 Order name: Urine Dipstick-Ancillary (obtain specimen); Complete Time: 03:28 bb 07/02 03:28 Order name: Urine Dipstick--Ancillary (enter results) ar5 07/02 04:25 Order name: AMMONIA; Complete Time: 05:42 sherif 07/02 04:25 Order name: SARS-COV-2 RT PCR; Complete Time: 05:03 EDMS 07/02 04:34 Order name: Troponin (emerg Dept Use Only) [facility] 07/02 04:35 Order name: Troponin (Emerg Dept Use Only); Complete Time: 05:42 EDMS 07/02 04:35 Order name: Vital Signs: recheck BP; Complete Time: 04:50 sherif EC:33 Rate is 82 beats/min. Rhythm is regular. QRS Devers is Normal. TX interval is normal. QRS sherif interval is normal. QT interval is normal. No Q waves. T waves are Normal. ST Segment is depressed in leads II, III, aVF. Clinical impression: Abnormal EKG without significant change and No evidence of ischemia. Interpreted by me. Reviewed by me. Administered Medications: 04:50 Drug: NS 0.9% 1000 ml Route: IV; Rate: 1 bolus; Site: left antecubital; jb4 05:45 Follow up: Response: No adverse reaction; IV Status: Completed infusion; IV Intake: jb4 1000ml Disposition: 07/02/20 04:32 Transfer [facility] to [facility]. Diagnosis are Schizophrenia, Abuse of other non-psychoactive substances, Bipolar disorder. - Reason for transfer: Higher level of care. - Accepting physician is to psych. - Condition is Stable. - Problem is new. - Symptoms have improved. Signatures: Dispatcher [employer] EDRoshan Christiansen MD MD cha Ballard, Brenda, RN RN Irving Burr RN RN jb4 Corrections: (The following items were deleted from the chart) 03:38 02:28 CORONAVIRUS+MR.LAB.BRZ ordered. [facility] EDOR 06:38 05:04 Fluid Challenge ordered. sherif jb4 06:48 04:32 07/02/2020 04:32 Transfer ordered to Psych Facility. Diagnosis is Schizophrenia; jb4 Abuse of other non-psychoactive substances; Bipolar disorder. Reason for transfer: Higher level of care. Accepting physician is to psych. Condition is Stable. Problem is new. Symptoms have improved. sherif
--- NOTE | 2020-07-02 04:33 | ER ---
Nurse's Notes [facility] Name: Alex Abbott Age: 30 yrs Sex: Male : 1990 Arrival Date: 07/02/2020 Time: 02:10 Bed 17 Private MD: Diagnosis: Schizophrenia;Abuse of other non-psychoactive substances;Bipolar disorder Presentation: 07/02 02:15 Chief complaint: Patient states: I need to get to a mental hospital so I can talk to a jb4 doctor so I don't have any more thoughts of wanting to hurt myself or others. 02:15 Method Of Arrival: Ambulatory jb4 02:15 Coronavirus screen: Client denies travel out of the [place] in the last 14 days. At this jb4 time, the client does not indicate any symptoms associated with coronavirus-19. Ebola Screen: No symptoms or risks identified at this time. Initial Sepsis Screen: Does the patient meet any 2 criteria? No. Patient's initial sepsis screen is negative. Does the patient have a suspected source of infection? No. Patient's initial sepsis screen is negative. Risk Assessment: Do you want to hurt yourself or someone else? Patient reports no desire to harm self or others. Onset of symptoms was July 02, 2020. Transition of care: patient was not received from another setting of care. 02:15 Acuity: ROCIO 2 jb4 Historical: - Allergies: 02:15 lithium; jb4 02:15 quetiapine fumarate; jb4 02:15 RISPERIDONE; jb4 02:15 ziprasidone HCl; jb4 - Home Meds: 02:15 Cogentin Oral [Active]; thorazine [Active]; Wellbutrin Oral [Active]; jb4 - PMHx: 02:15 Anxiety; Bipolar disorder; Depression; drug overdose; Pneumonia; Schizophrenia; jb4 ADD/ADHD; - PSHx: 02:15 None; jb4 - Immunization history:: Adult Immunizations unknown. - Social history:: Smoking status: Patient reports the use of cigarette tobacco products, unknown amount Patient uses alcohol, street drugs, Methamphetamine (Meth). - Family history:: not pertinent. Screenin:15 Abuse screen: Denies threats or abuse. Nutritional screening: No deficits noted. jb4 Tuberculosis screening: No symptoms or risk factors identified. Fall Risk None identified. Assessment: 02:15 General: Appears in no apparent distress. comfortable, Behavior is calm, cooperative. jb4 Pain: Denies pain. Neuro: Level of Consciousness is awake, alert, Oriented to person, place, time, situation. Cardiovascular: Patient's skin is warm and dry. Respiratory: Airway is patent Respiratory effort is even, unlabored, Respiratory pattern is regular, symmetrical. GI: No signs and/or symptoms were reported involving the gastrointestinal system. : No signs and/or symptoms were reported regarding the genitourinary system. EENT: No signs and/or symptoms were reported regarding the EENT system. Derm: Skin is intact, Skin is pink, warm \\T\\ dry. Musculoskeletal: Circulation, motion, and sensation intact. Range of motion: intact in all extremities. 03:15 Reassessment: Patient appears in no apparent distress at this time. Patient and/or jb4 family updated on plan of care and expected duration. Pain level reassessed. Patient is alert, oriented x 3, equal unlabored respirations, skin warm/dry/pink. 04:49 Reassessment: Patient appears in no apparent distress at this time. Patient and/or jb4 family updated on plan of care and expected duration. Pain level reassessed. Patient is alert, oriented x 3, equal unlabored respirations, skin warm/dry/pink. 05:37 Reassessment: Patient appears in no apparent distress at this time. Patient and/or jb4 family updated on plan of care and expected duration. Pain level reassessed. Patient is alert, oriented x 3, equal unlabored respirations, skin warm/dry/pink. Nurse to nurse given to Paul Roach [place]. 05:39 Reassessment: Nurse to nurse given to Gerardo Lucero. jb4 Psych: 02:15 [place] Suicide Severity Screening: In the past month, have you wished you were jb4 or wished you could go to sleep and not wake up? Patient responds "No." "In the past month, have you actually had any thoughts of killing yourself?" Patient responds "no." "In your lifetime, have you ever done anything, started to do anything, or prepared to do anything to end your life?" Patient responds "yes." Patient reports suicidal intent occurred greater than 3 months prior. Subjective: Patient's mood is sad, Delusions are denied, Hallucinations are denied Having thoughts of suicide. Denies suicidal plan. Objective: Patient is cooperative, using poor eye contact, Speech is slow, Affect is blunted. Interventions: Removed personal items and placed in bag. Patient placed in hospital gown. Searched person for dangerous items. Urine collected and sent for urine drug test. Belonging list filled out. Suicide Risk Assessment: Sad Person Scale: Sex of patient: Male: Score 1 point. Age of patient: Score 1 point if patient 15-34. Depression: Score 1 point if signs of depression are present. Previous Attempt: Score 1 point if patient has previously attempted suicide. Substance Abuse: Score 1 point if patient abuses alcohol or drugs. Rational Thinking: Score 1 point if patient is lacking rational thinking. Social Support: Score 0 if social support is present/available. Organized Plan: Score 0 if patient did not have an organized plan in place. Relationship: Score 1 point if patient is , , , or for a single male Chronic Sickness: Score 0 point if patient does not have a chronic illness, debilitating, or severe disorder. TOTAL POINTS: If total points are 7-10, the proposed clinical action is to hospitalize or commit. Implement suicide precautions. Safety Checks: Personal items have been removed. Door is open. No visitors are present at this time. Patient uses Alcohol Patient uses methamphetamines. Commitment: Patient will be a voluntary commitment. Vital Signs: 02:15 BP 146 / 105; Pulse 100; Resp 18; Temp 98.0; Pulse Ox 100% on R/A; Weight 61.23 kg (R); jb4 Height 5 ft. 9 in. (175.26 cm); Pain 0/10; 04:49 BP 132 / 98; Pulse 74; Resp 16; Pulse Ox 100% on R/A; jb4 02:15 Body Mass Index 19.94 (61.23 kg, 175.26 cm) jb4 ED Course: 02:10 Patient arrived in ED. cl3 02:15 Arm band placed on right wrist. jb4 02:15 Patient has correct armband on for positive identification. Placed in gown. Bed in low jb4 position. Call light in reach. Side rails up X 1. Valuables inventory done. Locked in safe. See valuables checklist. 02:50 Initial lab(s) drawn, by me, sent to lab. Inserted saline lock: 20 gauge in left jb4 antecubital area, using aseptic technique. Blood collected. 03:13 Irving Cedeno, RN is Primary Nurse. jb4 03:20 Triage completed. jb4 03:32 Roshan Gomez MD is Attending Physician. sherif 04:45 Faxed all pt. clinical's to psych facilities. ar5 05:21 Nurse-Nurse done with [place] [facility] [place]:32 [facility]Nurse [facility] Valerie [facility] ar5 05:40 done [facility] Christiano Alanis [place] [facility] ar[place] 05:56 Acceptance given by Shannan De La Cruz. Dr. Christiano Alanis accepted \\T\\ [address] Per Marley they asked for the pt. to arrive after 0700. 06:47 No provider procedures requiring assistance completed. IV discontinued, intact, jb4 bleeding controlled, No redness/swelling at site. Pressure dressing applied. Administered Medications: 04:50 Drug: NS 0.9% 1000 ml Route: IV; Rate: 1 bolus; Site: left antecubital; jb4 05:45 Follow up: Response: No adverse reaction; IV Status: Completed infusion; IV Intake: jb4 1000ml Intake: 05:45 IV: 1000ml; Total: 1000ml. jb4 Outcome: 04:32 ER care complete, transfer ordered by . sherif 06:47 Transferred by ground EMS [facility] [place] [facility] [place] Transfer form completed. 06:47 Condition: stable 06:47 Discharge instructions given to patient, Instructed on the need for transfer, Demonstrated understanding of instructions. 06:48 Patient left the ED. jb4 Signatures: Roshan Gomez MD MD cha Bryson, James, RN RN cheikh4 Chelsey Brunson ar5 Yamil De La Cruz cl3 Corrections: (The following items were deleted from the chart) 04:47 04:45 Faxed all pt. clinicals to psych facilites ar5 ar5
[2020-07-02] MEDS ORDERED: NA CHLORIDE 0.9% 1,000 ML ONE (04:58)
[2020-07-02 07:49] LABS: Urine Blood NEGATIVE (NEG); Urine Glucose NEGATIVE (NEG); Urine Protein NEGATIVE (NEG); Urine Specific Gravity 1.015 (1.005-1.030)
[2020-07-02 10:44] VITALS: BP 132/98; TEMP 98; O2SAT 100
== END 2020-07-02 06:48 ==
LOC: ER 02:09
DX: F20.9 Schizophrenia, unspecified (principal); F31.9 Bipolar disorder, unspecified; F15.10 Other stimulant abuse, uncomplicated; F17.210 Nicotine dependence, cigarettes, uncomplicated; F41.9 Anxiety disorder, unspecified; F90.9 Attention-deficit hyperactivity disorder, unspecified type; Z20.822 Contact with and (suspected) exposure to COVID-19
CPT/HCPCS: 93005; 85025; 80048; 36415; 80320; 82140; 80329 ×2; 85610; 80076; 80307 ×8; 85730; 81003; 84484; 96360; 99285; U0003; J7030

== ENCOUNTER 2020-07-12 14:59 | Emergency (ER) | payer OTHER ==
--- OUTSIDE RECORDS SUMMARY | 2020-07-12 15:05 | XMS REPORT | Continuity of Care Document ---
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 Diastolic (mm Hg) 2018-04-14 14:00:00 [facility] [place] Heart Rate 2018-04-14 10:00:00 [facility] Systolic (mm Hg) 2018-04-14 10:00:00 [facility] [facility] [place] Diastolic (mm Hg) 2018-04-14 10:00:00 [facility] [place] Temperature Oral (F) 2018-04-14 10:00:00 98.4 F [facility] Heart Rate 2018-04-14 06:00:00 [facility] Systolic (mm Hg) 2018-04-14 06:00:00 [facility] [facility] [place] Diastolic (mm Hg) 2018-04-14 06:00:00 [facility] Temperature Oral (F) 2018-04-14 06:00:00 98.4 F [facility] Respitory Rate 2018-04-13 18:00:00 [facility] Respitory Rate 2018-04-13 16:00:00 [facility] [place] Respitory Rate 2018-04-13 15:00:00 [facility] BMI Calculated 2018-04-13 04:49:00 [facility] [place] Weight 2018-04-13 04:49:00 [facility] Height 2018-04-13 04:49:00 157.48 cm [facility] Height 2018-04-12 21:49:00 177.8 cm [facility] Weight 2018-04-12 21:49:00 [facility] BMI Calculated 2018-04-12 21:49:00 [facility] Systolic (mm Hg) 2016-05-01 06:38:00 [place] [facility] [place] Diastolic (mm Hg) 2016-05-01 06:38:00 [facility] [place] Respitory Rate 2016-05-01 06:38:00 [facility] Heart Rate 2016-05-01 06:38:00 [facility] Height 2016-05-01 01:44:00 175.26 cm [facility] BMI Calculated 2016-05-01 01:44:00 [facility] [place] Weight 2016-05-01 01:44:00 [facility] Systolic (mm Hg) 2016-05-01 01:44:00 [facility] [place] Diastolic (mm Hg) 2016-05-01 01:44:00 [facility] [place] Heart Rate 2016-05-01 01:44:00 [facility] Respitory Rate 2016-05-01 01:44:00 [facility] [place] Temperature Oral (F) 2016-05-01 01:44:00 98.1 F [facility] Respitory Rate 2016-04-30 13:02:00 [facility] Systolic (mm Hg) 2016-04-30 13:02:00 [facility] rial [place] Diastolic (mm Hg) 2016-04-30 13:02:00 [facility] [place] Heart Rate 2016-04-30 13:02:00 [facility] Temperature Oral (F) 2016-04-30 13:02:00 98.0 F [facility] BMI Calculated 2016-04-30 10:35:00 [facility] Height 2016-04-30 10:35:00 175.26 cm [facility] Weight 2016-04-30 10:35:00 [facility] Respitory Rate 2016-04-30 10:35:00 [facility] [place] Temperature Oral (F) 2016-04-30 10:35:00 98.0 F [facility] Heart Rate 2016-04-30 10:35:00 [facility] Systolic (mm Hg) 2016-04-30 10:35:00 [facility] Diastolic (mm Hg) 2016-04-30 10:35:00 [facility] Respitory Rate 2016-04-07 16:22:00 [facility] Systolic (mm Hg) 2016-04-07 16:22:00 [facility] [place] Diastolic (mm Hg) 2016-04-07 16:22:00 [facility] Temperature Oral (F) 2016-04-07 16:22:00 98.2 F [facility] Heart Rate 2016-04-07 16:22:00 [facility] Systolic (mm Hg) 2016-04-07 13:26:00 [facility] Diastolic (mm Hg) 2016-04-07 13:26:00 [facility] Temperature Oral (F) 2016-04-07 13:26:00 98.5 F [facility] Heart Rate 2016-04-07 13:26:00 [facility] Respitory Rate 2016-04-07 13:26:00 [facility] [place] Heart Rate 2016-04-07 12:55:00 [facility] Temperature Oral (F) 2016-04-07 12:55:00 98.5 F [facility] Respitory Rate 2016-04-07 12:55:00 [facility] Systolic (mm Hg) 2016-04-07 12:55:00 [facility] [facility] Diastolic (mm Hg) 2016-04-07 12:55:00 [facility] [place] Weight 2016-04-07 01:47:00 [facility] Height 2016-04-07 01:47:00 175.26 cm [facility] BMI Calculated 2016-04-07 01:47:00 [facility] [place] Systolic (mm Hg) 2016-01-14 07:34:00 [facility] [facility] Diastolic (mm Hg) 2016-01-14 07:34:00 [facility] [place] Respitory Rate 2016-01-14 07:34:00 [facility] [place] Systolic (mm Hg) 2016-01-14 04:36:00 [facility] rial [place] Diastolic (mm Hg) 2016-01-14 04:36:00 [facility] Respitory Rate 2016-01-14 04:36:00 [facility] Systolic (mm Hg) 2016-01-14 03:28:00 [facility] [place] Diastolic (mm Hg) 2016-01-14 03:28:00 [facility] Respitory Rate 2016-01-14 03:28:00 [facility] Heart Rate 2016-01-14 02:47:00 [facility] Weight 2016-01-14 02:12:00 [facility] BMI Calculated 2016-01-14 02:12:00 [facility] Height 2016-01-14 02:12:00 175.26 cm [facility] Temperature Oral (F) 2016-01-14 02:12:00 98.5 F [facility] Heart Rate 2016-01-14 02:12:00 [facility] Diastolic (mm Hg) 2012-12-31 01:48:00 [facility] Systolic (mm Hg) 2012-12-31 01:48:00 [facility] Respitory Rate 2012-12-31 01:48:00 [facility] [place] Heart Rate 2012-12-31 01:48:00 [facility] Temperature Oral (F) 2012-12-31 01:48:00 98.3 F [facility] Diastolic (mm Hg) 2012-12-30 20:21:00 [facility] Systolic (mm Hg) 2012-12-30 20:21:00 [facility] Respitory Rate 2012-12-30 20:21:00 [facility] [place] Heart Rate 2012-12-30 20:21:00 [facility] Temperature Oral (F) 2012-12-30 20:21:00 97.5 F [facility] Heart Rate 2012-12-30 16:18:00 [facility] Temperature Oral (F) 2012-12-30 16:18:00 97 F [facility] Respitory Rate 2012-12-30 16:18:00 [facility] [place] Diastolic (mm Hg) 2012-12-30 16:18:00 [facility] [place] Systolic (mm Hg) 2012-12-30 16:18:00 [facility] Height 2012-12-29 02:00:00 175.26 cm [facility] Weight 2012-12-29 02:00:00 [facility] Procedures This patient has no known procedures. Plan of Care Planned Activity Planned Date Details Comments Source Future Scheduled 2019-11-30 INFLUENZA VACCINE [place] [facility] 00:00:00 [code = INFLUENZA VACCINE] Future Scheduled 2006 Hepatitis C [facility] 00:00:00 screening (procedure) [code = 841274864] Future Scheduled 2004 COVID-19 VACCINE (1 [place] [facility] 00:00:00 of 2) [code = COVID-19 VACCINE (1 of 2)] Encounters Start End Encounter Admission Attending Care Care Encounter Source Date/Time Date/Time Type Type Clinicians Facility Department ID 2019-12-14 2019-12-15 Outpatient Diego [facility] [id number] 23:20:04 03:22:00 Elio Sweeney [facility] 2019-12-14 2019-12-14 Emergency E [facility] [id number] Memoria 23:20:00 23:20:00 l [facility] 2018-04-18 2018-04-18 Outpatient Shawna, [facility] [id number] 05:54:00 10:31:00 Sb Orion Echeverria 2018-04-12 2018-04-14 Outpatient Mena, [facility] [id number] 15:46:00 15:30:00 Eddie Deluna 06 2016-04-30 2016-05-01 Outpatient [place] [address] [id number] 19:27:00 01:00:00 Hiram Conrad 05 2016-04-30 2016-04-30 Outpatient Heide [place] [address] [id number] 04:30:00 07:04:00 Santana Shahla Jaya 2016-04-06 2016-04-07 Outpatient Constantino [facility] [id number] 19:26:00 10:46:00 Mirta andre 02 Yary 2016-01-13 2016-01-14 Outpatient James [facility] [id number] 21:11:00 03:00:00 Noemi Shi 01 Results Test Description Test Time Test Comments Results Result Comments Source HEMATOLOGY 2019-12-15 0.3 [facility] 04:57:00 [facility] HEMATOLOGY 2019-12-15 7.3 [facility] 04:57:00 [facility] HEMATOLOGY 2019-12-15 1.3 [facility] 04:57:00 [facility] HEMATOLOGY 2019-12-15 0.6 [facility] 04:57:00 [facility] TOXICOLOGY 2019-12-15 <3 [facility] 04:57:00 [place] TOXICOLOGY 2019-12-15 <0.003 [facility] 04:57:00 [facility] TOXICOLOGY 2019-12-15 <2 (12/14/19 [facility] 04:57:00 11:57 PM) [facility] TOXICOLOGY 2019-12-15 3.4 [facility] 04:57:00 [facility] CHEM PANEL 2019-12-15 141 [facility] 04:57:00 [place] CHEM PANEL 2019-12-15 7 [facility] 04:57:00 [facility] CHEM PANEL 2019-12-15 1.10 [facility] 04:57:00 [place] CHEM PANEL 2019-12-15 138 [facility] 04:57:00 [place] CHEM PANEL 2019-12-15 3.1 [facility] 04:57:00 [place] CHEM PANEL 2019-12-15 106 [facility] 04:57:00 [facility] CHEM PANEL 2019-12-15 27 [facility] 04:57:00 [place] CHEM PANEL 2019-12-15 8.9 [facility] 04:57:00 [facility] CHEM PANEL 2019-12-15 4.2 [facility] 04:57:00 [facility] CHEM PANEL 2019-12-15 8.1 [facility] 04:57:00 [place] CHEM PANEL 2019-12-15 04:57:00 Test Item Value Reference Range Interpretation Comme nts B/C Ratio (test code = B/C Ratio) 6 1 6-25 [facility] JUXBC1774-50-93 04:57:0089[facility]annCHEM PANEL 2019-12-15 04:57:007.6[facility]annCHE[facility] DYJAZ0241-73-50 04:57:0023[facility]annCHEM PZHEP1781-06-44 04:57:0016[facility]annCHEM QQTVF3023-48-31 04:57:0038[facility]annCHE[facility] OABPZ2809-51-28 04:57:000.3[facility]annCHEM NTVAE3727-66-28 04:57:003.4[facility]annCHEM ASBYQ8144-17-67 04:57:00 Test Item Value Reference Range Interpretation Comments A/G Ratio (test code = A/G Ratio) 1.2 1 0.7-1.6 [facility] FtcceerHVEVTNOLQB6746-56-58 04:57:009.2[facility]annHEMATOLOGY 2019-12-15 04:57:004.56[facility] IyzwzpfGIFPVZLJXN4990-97-91 04:57:0013.3[facility] KcbklosVZEAEPRQMG8036-28-43 04:57:0039.7[facility] ZlyywjkYHYGVDYIPS5679-75-83 04:57:0087.0[facility] XfrvvbvEVWIRALKDW3861-74-12 04:57:00 Test Item Value Reference Range Interpretation Comments MCH (test code = MCH) 29.2 pg 27.0-31.0 [facility] NkvuadoQBSOJYGTAK2992-36-44 04:57:0033.6[facility] HermannHEMATOLOGY 2019-12-15 04:57:0013.1[facility] SouojejRSNIOIJFUQ4114-74-99 04:57:41515Zgdcsdjf WaejqpaFDVZNXYWGM4640-89-19 04:57:009.8[facility] UcknjwlISVQQHTVMK0088-15-97 04:57:0079.0[facility] UhngscnQIHXHQTNHB6816-93-64 04:57:0013.7[facility] Brysno VWXISFFBCM8517-19-88 04:57:006.5[facility] SxzoamxHISDQSCVXA4565-59-55 04:57:000.5 [facility] HermannCARDIAC XBHDUFW4415-91-29 13:17:80143Fbxkklpg [place] GEXVOIRHRNNL1680-19-86 13:17:0014.8[facility] WudgmazRYFSOTZWTQDC0497-64-55 13:17:0093[facility] FbxcikjIASHLBRKOIFO4441-16-43 13:17:001.07[facility] SHVRIYHPFKOU9985-34-40 13:17:87662Mrzkijun RkpbowzBXYTLUNJKQAQ5885-64-32 13:17:003.8[facility] ZqnenzlHDLKESXWSMKF3025-01-48 13:17:009.3[facility] DPTUUALKDUXS0033-82-85 13:17:0023[facility] XerjsicZVOXYDREAXEG8533-77-06 13:17:00 101[facility] SwfvbqiMRVGVMAYWMNR0643-16-53 13:17:0094[facility] HermannELECTROLYTES 2018-04-18 13:17:0017[facility] PhhelqxNEXBVQEQEV6073-84-29 13:17:0033.6[facility] ZmktcyhWMQIUQBTYL5803-60-24 13:17:0014.7[facility] HffskubRJDHZFDECF2054-04-36 13:17:00 Test Item Value Reference Range Interpretation Comments MCH (test code = MCH) 27.9 pg 27.0-31.0 [facility] TorbsexYCXGXIDUYD1888-54-17 13:17:0083.1[facility] HermannHEMATOLOGY 2018-04-18 13:17:009.9[facility] EbprgqoKIIRVIORSV2718-49-87 13:17:77487Zcnzkjak OfitdgjXQLILIEEZA2466-65-43 13:17:004.63[facility] ActrdypHTGDMOBGKM9903-55-65 13:17:0012.9[facility] TojkwstFRBNBKYHUW6858-53-22 13:17:0038.4[facility] FQTVLFJXWA6723-41-52 13:17:008.2[facility] CdptueoELMMXUVVOR5218-47-69 13:17:000.9 [facility] IwxhzpuGKAGCYKKRZ1182-91-97 13:17:000.1[facility]annHEMATOLOGY 2018-04-18 13:17:001.1[facility] UmvzhwqRDQTLQZYYC9564-59-13 13:17:006.1[facility] KlpfwobJRJZCBUFED6801-29-49 13:17:0011.1[facility] VaryzorVJTBSINFJT2754-95-99 13:17:000.9[facility] TdbboazRYRSZTRTXD3031-83-18 13:17:000.2[facility] LLNTBUPLHB5169-09-98 13:17:0074.9[facility] ChzhfleBMIVQHORVC8597-26-91 13:17:00 12.9[facility] JnbgiqgKIGFQMQSTK6814-84-26 13:17:00<1.7[facility] HSAOYYZIDQ5698-27-76 13:17:003[facility] HermannCARDIAC FXDFLMR2997-61-40 10:11:00 <0.02[facility] HermannCHEM PVSPL0075-11-30 10:11:003.7[facility]annCHEM CCLQB6000-27-60 10:11:002.1[facility] HmbnfueIEWCKOHRQTXK1548-21-92 10:11:0011.0 [facility] VedkregHADRQQKHVEFE2670-53-49 10:11:000.90[facility] HermannELECTROLYTES 2018-04-13 10:11:32321Tusorwtn IicsopvYHJKXRPBTGLC2243-01-15 10:11:008.2[facility] IvkyfjvWWHDFCJMLDKS2743-43-49 10:11:0025[facility] VcjbvvaCQIRDUZUXXHS1846-89-56 10:11:69429Mjbkzngv AfkqexsGYABDNEVNDKO5899-69-75 10:11:004.0[facility] MZFPEDXWAUPV9093-82-56 10:11:20396Wtxcjjux VqofmvgZVKYDWQOVLZR9696-01-94 10:11:0011[facility] WdvdylrVBJCEQGHFEST8448-30-00 10:11:0085[facility] FLANQSXXHA8881-90-12 10:11:00 Test Item Value Reference Range Interpretation Comments MCH (test code = MCH) 27.9 pg 27.0-31.0 [facility] UmilcmhIYHFJUPSNG7725-20-06 10:11:0033.5[facility]annHEMATOLOGY 2018-04-13 10:11:0036.7[facility] ZjdgakiXXZSCFDYWP3509-89-48 10:11:0083.1[facility] HwjxrxaJXDYEOYTKH6187-47-62 10:11:004.42[facility] NvfyontCUQGLKIAMR8625-62-81 10:11:0012.3[facility] QuvcvnhHSYOXDYMZK8821-59-24 10:11:008.5[facility] KTMZRZVXDJ2958-67-60 10:11:009.5[facility] AaqwicrESLYURLCTR8903-92-91 10:11:00 14.4[facility] HvpyglzBWNVWQBWRP9535-86-95 10:11:14879Lslopfcy HermannHEMATOLOGY 2018-04-13 10:11:001.2[facility] RhevpdcJPOEACXQUL4955-93-17 10:11:000.6[facility] TrvefoeUUECFRMFQH2124-52-47 10:11:000.2[facility] SvfbfebMTFHHNBVGD5153-19-76 10:11:000.0[facility] IofohkuEPKJGMTPJD0900-41-30 10:11:002.3[facility] CQEXTKOBNR5497-11-03 10:11:000.3[facility] OrvfcqnKLPYRBWVXO8425-76-55 10:11:006.5 [facility] BxskfrwDBSBSQSLGY1488-95-65 10:11:0014.5[facility] HermannHEMATOLOGY 2018-04-13 10:11:006.7[facility] JbkwuuqDSGHJOSMLP3897-62-31 10:11:0076.2[facility] HermannPARATHYROID ASBOOXP1289-81-16 10:11:001.13[facility] HermannPARATHYROID IJWSDKR1228-13-28 10:11:001.17[facility]annURINE AND GWSRY1077-39-66 06:21:00 None Seen (04/13/18 12:21 AM)[facility] HWLVD6678-43-97 06:21:001 [facility] SVOOD4487-23-58 06:21:001[facility] LAFWS1277-45-60 06:21:00 Test Item Value Reference Range Interpretation Comments UA Spec Grav (test code = UA Spec 1.009 1 Grav) [facility] POKYA6306-75-74 06:21:00Clear (04/13/18 12:21 AM) [facility] YVNEN8137-27-72 06:21:00<=1.0[facility] AND FPWQM0837-96-17 06:21:00Negative *NA*(04/13/18 12:21 AM)[facility] URINE AND MVGFF3302-61-09 06:21:00Negative *NA*(04/13/18 12:21 AM)[facility] FTMGJ4080-32-34 06:21:00Trace *ABN*(04/13/18 12:21 AM)[facility] PKUWE2580-65-21 06:21:00Negative (04/13/18 12:21 AM)[facility] GEHNY3280-07-10 06:21:00Negative *NA*(04/13/18 12:21 AM) [facility] SOYFF2528-86-98 06:21:00 Test Item Value Reference Range Interpretation Comments UA pH (test code = UA pH) 7.0 1 5.0-8.0 [facility] EAIRN4360-31-74 06:21:00Negative (04/13/18 12:21 AM) [facility] WZGYG8812-63-85 06:21:00Negative (04/13/18 12:21 AM) [facility]annCARDIAC BBKEDEN3395-39-51 05:42:00<0.02[facility] OBPIDYMCYK8304-34-24 05:42:00Negative *NA*(04/12/18 11:42 PM)[facility] BACTERIAL - AHZVCCKR8268-07-03 05:18:00Negative (04/12/18 11:18 PM)[facility]annDRUG UIDBQP8610-89-03 23:22:00Negative *NA*(04/12/18 5:22 PM)[facility] HermannDRUG DHUPNJ1440-99-32 23:22:00Negative *NA*(04/12/18 5:22 PM)[facility]annDRUG CASDUC6795-95-85 23:22:00Negative *NA*(04/12/18 5:22 PM)[facility]annDRUG WCMOUJ9752-61-57 23:22:00Negative *NA*(04/12/18 5:22 PM)[facility]annDR[facility] GTATBB0288-20-56 23:22:00Negative *NA*(04/12/18 5:22 PM)[facility]annDRUG CXRQER0955-04-16 23:22:00See Note (04/12/18 5:22 PM)[facility] DRUG MZTMDN3539-93-93 23:22:00Negative *NA*(04/12/18 5:22 PM)[facility] DRUG MYEBZI9139-44-54 23:22:00Negative *NA*(04/12/18 5:22 PM)[facility] CARDIAC SPCGKKU6881-65-98 22:38:000.02[facility] HermannCARDIAC PINGUJO6875-86-44 22:38:0050[facility] HermannCHEM CCHVX6159-49-58 22:38:68742Tgrrlmoj HermannCHEM FKQRE9187-20-03 22:38:0017[facility] HermannCHEM HEVJM7852-93-88 22:38:0023 [facility]annCHEM FSUET9960-06-04 22:38:004.0[facility] HermannCHEM PANEL 2018-04-12 22:38:007.4[facility] HermannCHEM XSXVO0017-29-94 22:38:000.3[facility] HermannCHEM RGOTH2568-76-44 22:38:0035[facility] HermannCHEM NXUDB1496-84-48 22:38:08086Foznttvf HermannCHEM WRFAG7661-33-47 22:38:009.4[facility] HermannCHEM DOIFQ2551-86-30 22:38:0032[facility] HermannCHEM IOZAJ5140-09-60 22:38:004.2 [facility]annCHEM UIQLN0454-68-15 22:38:09798[place] HermannCHEM PANEL 2018-04-12 22:38:000.80[facility] HermannCHEM XEXVY2041-78-37 22:38:0012[facility]annCHEM MABNH7016-04-86 22:38:0093[facility] HermannCHEM YHOLN1307-55-55 22:38:00 Test Item Value Reference Range Interpretation Comments A/G Ratio (test code = A/G Ratio) 1.2 1 0.7-1.6 [facility] HermannCHEM PEKFX4371-98-31 22:38:003.4[facility]annCHEM PANEL 2018-04-12 22:38:00 Test Item Value Reference Range Interpretation Comments B/C Ratio (test code = B/C Ratio) 15 1 6-25 [facility] HermannCHEM NAWZZ4191-88-90 22:38:008.2[facility]annHEMATOLOGY 2018-04-12 22:38:0032.1[facility] TqhrvrtRLBQKGXYWJ1820-62-51 22:38:00 Test Item Value Reference Range Interpretation Comments MCH (test code = MCH) 27.4 pg 27.0-31.0 [facility] MwramviHCJBIYMBBZ3541-89-50 22:38:20233[facility] HermannHEMATOLOGY 2018-04-12 22:38:0014.4[facility] SakhcvkZSUOHKOJEI0501-29-14 22:38:009.1[facility] UfvelblZWYLGKYWRN7635-26-16 22:38:0014.0[facility] XrtscrwLDVRWPLTBI2110-83-86 22:38:005.18[facility] EjobefhJPFGNWYOPS7424-60-43 22:38:0014.2[facility] KRLYGVNZVS5692-69-46 22:38:0044.2[facility] KkjytapKFOJUYADBT5229-81-95 22:38:00 85.3[facility] FanlgfiWEIKWUURQL0527-59-66 22:38:000.2[facility] HermannHEMATOLOGY 2018-04-12 22:38:000.1[facility] KhuzzzbVDBIONETSR5508-09-21 22:38:002.7[facility] JwheeteAFVBGLPYWV0108-58-61 22:38:000.4[facility] EhfefyvYAAOLPKDVI4057-87-19 22:38:000.6[facility] DocvyuvBLNOWGKFPV3972-24-46 22:38:0013.0[facility] VTJIWKOHSL3637-75-06 22:38:004.1[facility] QvwegmhREHKMRXJIM3627-92-26 22:38:000.0 [facility] ToxkimaYCEYXZASAK0059-50-96 22:38:000.0[facility] HermannHEMATOLOGY 2018-04-12 22:38:00Normal (04/12/18 4:38 PM)[facility] SucjckmPDGFPOKNQA3321-41-82 22:38:00Normal (04/12/18 4:38 PM)[facility] BwdtstxSHMFBSBGHK6773-57-97 22:38:00 92.9[facility] SzdlieoCZESLCXWSY6036-54-31 22:38:00Moderate *ABN*(04/12/18 4:38 PM)[facility] HermannCARDIAC RBPALNA7908-71-73 03:21:863272Dgsndpev [place] QDBYCYHLVVYB6871-99-47 03:21:0014.1[facility] PrdpdpfJMNMEJKEBLOB9473-92-05 03:21:0011[facility] MzgetxmPYMBLZYQHEGS4550-63-07 03:21:003.2[facility] ANWETDNESYUP0637-76-69 03:21:001.3[facility] HlfjkpwSEWIHICRTTOC4915-35-26 03:21:000.4[facility] DnmugmqMIPUZMXGCBHM1257-68-92 03:21:87086Xxlxhlvz [facility] ZOCLBPNZUYZE4334-80-05 03:21:004.2[facility] ElyryznFNQMKTKYHOIP5887-74-11 03:21:0048[facility] VxknwqoAMMGRHKRJFYW7413-73-77 03:21:24495Lbpvnrcc [facility] ATGTQRCFYFBF3119-14-26 03:21:0075[facility] NnxmhjmFNFOILCMQSYG3713-22-95 03:21:00 11[facility] IjjnpfbQTULUVVDSXPS0764-08-74 03:21:004.1[facility] HermannELECTROLYTES 2016-05-01 03:21:001.00[facility] LvxfyfnAAGYASRODNHI4283-69-62 03:21:65313 [facility] BkwdoqzGFIBHHHAFXON0853-50-96 03:21:45113Inaihsvc HermannELECTROLYTES 2016-05-01 03:21:0024[facility] NksbhwyVSTPVWLWYNTW2875-77-52 03:21:007.4[facility] XravfaxTPBDQOXJRDII8138-88-95 03:21:009.1[facility] QubfkrtWZUPCMGGPAOZ0340-83-68 03:21:0052[facility] GectkbkYNYAFWJOLO6850-54-85 03:21:0086.0[facility] RQMXOCYYTX1291-70-86 03:21:00 Test Item Value Reference Range Interpretation Comments MCH (test code = MCH) 29.7 pg 27.0-31.0 [facility] LuposdeISSPMUSGBO8183-86-69 03:21:0041.0[facility] HermannHEMATOLOGY 2016-05-01 03:21:004.77[facility] RcqpiauJUUQPCPWRQ6655-25-10 03:21:008.8[facility] DcxcyndILEVWSUWDN6439-44-92 03:21:0014.2[facility] XdohlbwWAQHJIJSCN8737-52-50 03:21:96734Qmyhhyin EcexcarRVCKDGTGBT0347-54-80 03:21:0034.5[facility] HSSBEUJUXA5559-22-71 03:21:0013.5[facility] OcvqsgvJFYIYXUVEC7755-62-04 03:21:00 8.9[facility] VqhanyaNTVBQNFOBX3061-66-64 03:21:0021.1[facility]annHEMATOLOGY 2016-05-01 03:21:0011.7[facility] JjojyzjRQCECUXBKI3034-70-78 03:21:001.8[facility] DbjeiqpLNKHLXHUCL0188-97-34 03:21:005.7[facility] LdzcvlzQSLDMYJSVF5099-80-88 03:21:001.7[facility] StpeutxXIGGQDZOGH3214-54-38 03:21:000.8[facility] RUYIATSNGB0474-19-01 03:21:000.1[facility] EygdykuWNNRSUFKFH5557-75-93 03:21:001.0 [facility] VnggmvkILCYFAANMO1589-65-65 03:21:000.2[facility]annHEMATOLOGY 2016-05-01 03:21:0064.7[facility] EqrvtrtNVOXDIQRQM6292-02-99 04:48:00<0.003 [facility] CmebgrmSPGJOGMYDS1174-76-02 04:48:00<3[facility] HermannDRUG SCREEN 2016-04-07 02:43:00See Note *NA*(04/06/16 [...] pH) 5.5 1 5.0-8.0 [facility] UNQNV3940-77-27 02:43:00 Test Item Value Reference Range Interpretation Comments UA Spec Grav (test code = UA Spec 1.025 1 Grav) [facility] SNBMT5897-18-85 02:43:00Negative (04/06/16 8:43 PM) [facility] LNDDM6955-69-38 02:43:000.2[facility] KDPNT9973-59-55 02:43:00Negative (04/06/16 8:43 PM)[facility] RQKTH9677-05-77 02:43:00Small *ABN*(04/06/16 8:43 PM)[facility] FNWFC5540-37-65 02:43:00Trace *ABN*(04/06/16 8:43 PM)[facility] KBXNS0112-71-93 02:43:00Clear (04/06/16 8:43 PM)[facility] STOOL 2016-04-07 02:43:00Yellow *NA*(04/06/16 8:43 PM)[facility] HermannCARDIAC ENZYMES 2016-04-07 02:38:64666Sfgedkps HermannCHEM LXWKI8054-47-30 02:38:70586Acpzujxg HermannCHEM NWRID9516-40-35 02:38:009.2[facility] HermannCHEM YBJNC8876-69-87 02:38:007.6[facility] HermannCHEM KWZWL6380-87-96 02:38:0022[facility] HermannCHEM GZJLQ4605-97-73 02:38:0043[facility] HermannCHEM VJAPC7995-80-70 02:38:004.4 [facility]annCHEM AYRGA9277-53-95 02:38:0022[facility] HermannCHEM PANEL 2016-04-07 02:38:01843Vqwlxvpy HermannCHEM VLOSG2916-32-90 02:38:000.81[facility] HermannCHEM SNYLG3979-85-21 02:38:34589Krwqytvv HermannCHEM EWWDH6958-85-48 02:38:004.4[facility] HermannCHEM XFEQL6408-78-83 02:38:000.9[facility] HermannCHEM WBZEV2710-84-43 02:38:0034[facility] HermannCHEM XPPQL7585-02-21 02:38:0063 [facility]annCHEM HCKIA5411-02-19 02:38:0014Mem[facility] HermannCHEM PANEL 2016-04-07 02:38:0017.4[facility] HermannCHEM JKPIJ8767-97-24 02:38:0017[facility] HermannCHEM IFJDJ5943-20-40 02:38:003.2[facility] HermannCHEM IYSLE5890-82-33 02:38:001.4[facility] DjgzxjlRTLLLYMMSW6580-68-10 02:38:001.7[facility] FNZNNZXZTF6019-57-52 02:38:001.0[facility] ZwkugduBZBRYZIDEN2617-10-19 02:38:000.4 [facility] BcuiyzvYSXPOMEIMI5107-80-66 02:38:004.2[facility] HermannHEMATOLOGY 2016-04-07 02:38:009.2[facility] OkquafkLDZXSSMJPK8791-06-03 02:38:000.6[facility] VkvemovUERMLLNYKV2048-80-64 02:38:000.1[facility] ZklmqqeDXRHYZWSZE5410-50-98 02:38:0026.3[facility] DvpluhfLOVCAXDWZC7045-27-06 02:38:0063.1[facility] XGULIVTIRC4790-25-21 02:38:006.6[facility] NbzmbeyNWAOUFTONP5907-81-24 02:38:00 42.9[facility] NqezdiuXYDFTKAQCX3072-09-29 02:38:004.86[facility] HermannHEMATOLOGY 2016-04-07 02:38:0014.4[facility] NscnwxsUQMWFXVUKJ5471-89-69 02:38:0088.3[facility] TuuxgnsUPXMWDZBDL1474-41-82 02:38:00 Test Item Value Reference Range Interpretation Comments MCH (test code = MCH) 29.6 pg 27.0-31.0 [facility] NlmimfwXAHFVADWAF7753-58-97 02:38:0033.6[facility] HermannHEMATOLOGY 2016-04-07 02:38:009.4[facility] VdwyogkHCIBFTRMIW1755-30-07 02:38:0013.4[facility] GvmaxboMUFTRFVXYQ9024-19-46 02:38:63754Jpvranet OdwpallQFOBIOFDCV7219-29-26 02:38:00<1.7[facility] EcfnjetXJFWVRQJUQ1921-46-34 02:38:00<2 (04/06/16 8:38 PM)[facility] DZISKKHE0378-22-87 02:38:00Negative (04/06/16 8:38 PM) [facility] TNOPRFHP1704-43-29 02:38:00Negative (04/06/16 8:38 PM) [facility] ZflyvqqXTEHWKVJX3425-75-58 06:42:008[facility] BzfadueBZLNBFUHH6655-46-37 06:42:002.5[facility] UagwiysIPRZIHZPG3226-19-72 06:42:0016.9[facility] TCFVOYCWA7320-78-47 06:42:001.6[facility] WeomattSCEIQBGNA0051-19-08 06:42:90874 [facility] YsblfktZNNRDVHBL6310-59-27 06:42:94409Yiyexygc HermannCHEMISTRY 2012-12-30 06:42:0026[facility] KvlzhfhRUZGSBWRS7873-71-74 06:42:003.9[facility] QsggaqyTOZAEYXVK8956-25-68 06:42:0047[facility] YqficqmPESJANLJH1356-72-69 06:42:006.4[facility] KsmqcmpEZLBOTYQA8896-81-47 06:42:0031[facility] TTZNYYNRP4008-35-86 06:42:009.0[facility] RgccmwlMQUCOIWCO7691-79-57 06:42:000.4 [facility] YhqiwwfQMDFWSHUR7880-04-99 06:42:73802[place] HermannCHEMISTRY 2012-12-30 06:42:0024[facility] TyuvdgrFDRYNMIBI2903-38-90 06:42:62393Zsejsuhj EvwhtfyDNRJCKPCL3133-12-14 06:42:003.9[facility] GseuksaPTYYLOVSQ5382-47-10 06:42:008[facility] EafwdcgXJWYLEHJW8825-18-46 06:42:001.0[facility] HMUWZMNHIO1276-14-04 06:42:00 Test Item Value Reference Range Interpretation Comments MCH (test code = MCH) 30.2 pg 27.0-31.0 N [facility] RbfsbgaAXSIZRPNOK5622-08-88 06:42:24777Jooxafrw HermannHEMATOLOGY 2012-12-30 06:42:0010.1[facility] HekwelkPZCSMRKTAV3460-02-94 06:42:0013.4[facility] FfshyfsZXNFLXVEOB0744-19-38 06:42:0039.4[facility] IyopjgrPXAZOGMGUI1862-96-60 06:42:0089.5[facility] DycyywvHYJGZUZAYK2322-27-04 06:42:0013.3[facility] ALQFNRVZST6284-45-79 06:42:0033.7[facility] ZpesovnGVEQTKNFGC0703-87-68 06:42:00 12.5[facility] UyuobmbVNDVXXBIPH5941-39-19 06:42:004.40[facility]annHEMATOLOGY 2012-12-30 06:42:009.4[facility] SmrkbckNJSOLICTPK6596-18-56 06:42:0010.8[facility] NcaaknqKUSIOXXVCH8918-19-44 06:42:0079.6[facility] VojggjwKZHDXESORA1204-67-30 06:42:000.1[facility] ZwlrfbpLBWGDXBHMI9169-81-99 06:42:000.1[facility] SBZOFIBICV5571-12-46 06:42:009.9[facility] RiprbkvVHGOSVWVCW4470-19-30 06:42:001.2 [facility] DewmdvzDECTJZSGRM7673-80-47 06:42:001.3[facility] HermannCHEMISTRY 2012-12-29 09:00:492.0[facility] JrajxzuECMWXQZNJ1262-72-58 03:30:38See Note 5(12/28/2012 22:30:38)[facility] VrncbbtKLYFHFQKI7979-52-12 03:30:38Negative *NA*(12/28/2012 22:30:38)[facility] FoihdfiKONVOGWKB2713-22-07 03:30:38Positive *ABN*(12/28/2012 22:30:38)[facility] PluthamMJTIFMKMX9148-02-08 03:30:38Negative *NA*(12/28/2012 22:30:38)[facility] MobtjczQUGUXUQKI3914-83-79 03:30:38Negative *NA*(12/28/2012 22:30:38)[facility] JnfcsawYEWTNKGUA2460-41-28 03:30:38Negative *NA*(12/28/2012 22:30:38)[facility] VmmilnzBUGSKLYQU5461-82-88 03:30:38Negative *NA*(12/28/2012 22:30:38)[facility] NokfjjdXPYNAZTYV3192-93-58 03:30:38Negative *NA*(12/28/2012 22:30:38)[facility] LtxegcmCUZEVPSSFQ4972-58-95 03:30:38Negative mg/dL *NA*(12/28/2012 22:30:38)[facility] GaavltpTBTZZBLRZA3959-83-06 03:30:38 Negative *NA*(12/28/2012 22:30:38)[facility] WzgjddqSBSFSSBZVX7642-33-73 03:30:38 Negative (12/28/2012 22:30:38)[facility] FigdakhJNQDCRTPAO5414-06-98 03:30:380.2 [facility] KndehokTDESZYBTQX7506-18-70 03:30:38Negative (12/28/2012 22:30:38) [facility] KjvirsuORZRTOGTPN8684-01-85 03:30:38Negative (12/28/2012 22:30:38) [facility] UgnhdavKTXAQUSFSH1107-14-61 03:30:38 Test Item Value Reference Range Interpretation Comments UA pH (test code = UA pH) 7.0 1 5.0-8.0 N [facility] OteisfxTKDNEMNMGZ1339-81-76 03:30:38Negative mg/dL (12/28/2012 22:30:38)[facility] CjjtrzvTNCRDNSJYT1330-49-64 03:30:38 Test Item Value Reference Range Interpretation Comments UA Spec Grav (test code = UA Spec 1.010 1 N Grav) [facility] GsldytbOTHGKEOJHN7228-05-19 03:30:38Negative mg/dL (12/28/2012 22:30:38)[facility] EqqsnttWALTOSYPLK9880-84-87 03:30:38Clear (12/28/2012 22:30:38)[facility] XcsvicdQFAOZJHHXJ7962-53-89 03:30:38Yellow *NA*(12/28/2012 22:30:38)[facility] VbtzrmeLUELDTIMSS9170-54-13 03:30:21None Seen (12/28/2012 22:30:21)[facility] OgomqciORRFPTGLME1101-07-11 03:30:21Performed (12/28/2012 22:30:21)[facility] HiychrsQCBBURIUPP6049-97-10 03:30:21None Seen (12/28/2012 22:30:21)[facility] RmiwexiVJEBHXRDBV5332-90-08 03:30:210-2 /HPF (12/28/2012 22:30:21)[facility] EfrfvllKKYYBMGYBG3598-81-26 03:30:21None Seen (12/28/2012 22:30:21)[facility] HermannBLOOD BANK SXGEPAU8272-94-76 02:00:00Negative (12/28/2012 21:00:00)[facility] GlshwmgXGFXGICCB1327-57-55 01:56:0084.6[facility] NsxsobbHXHITEVWL9602-76-75 01:56:0037.0[facility] VrzkjkzEBDNCVRTY3784-52-97 01:56:00-4[facility] GsfcugmDMOEQAVDC3325-01-58 01:56:0020[facility] QMRCPQLBW2978-14-81 01:56:0049[facility] YikioqvBDXCVLBXP4109-29-78 01:56:007.41 [facility] CzcqiltYKDEYVNQD4972-24-10 01:56:0031[facility] HermannCHEMISTRY 2012-12-29 01:56:004.4[facility] DseqqpzODVFEEDRT6366-65-61 01:56:0079[facility] YqqijjyDMKSZCFHD4570-24-64 01:56:000.079[facility] BkqsmjnOQVWVGZVQ1268-64-36 01:56:0093[facility] QbbwswaMDXXSHQRL2542-85-95 01:56:006[facility] HermannCHEMISTRY 2012-12-29 01:56:001.1[facility] QpuyxitWCJCQGONY7760-92-04 01:56:36549Dipfxtzt SdrkbobEZVKPRCCM5819-31-60 01:56:53769Ljfkjhzk FmldcaiXKGRLDKGQ0534-53-49 01:56:24297Xrxsrxex McbwpudINHYSWGLI2230-70-93 01:56:0021[facility] SPBYVIXVJ4246-77-52 01:56:003.1[facility] MzfoqjpKJHCNBADK5458-66-52 01:56:008.6 [facility] NauuwbhMRMZICFHY1621-38-14 01:56:0019.1[facility] HermannHEMATOLOGY 2012-12-29 01:56:001.3[facility] ZpdmxmuPBDOIYFYQA5831-77-64 01:56:00 Test Item Value Reference Range Interpretation Comments K-time (test code = K-time) 2.2 min 0.6-2.3 N [facility] JcwcsitSHYENZBWND0356-02-83 01:56:00 Test Item Value Reference Range Interpretation Comments Angle (test code = Angle) 64 degrees 64-80 N [facility] JulqokoJXPTQZYGXZ7739-90-79 01:56:00 Test Item Value Reference Range Interpretation Comments Max Amp (test code = Max Amp) 58 mm 52-71 N [facility] ZmadflaYYOLDVUAXQ2718-71-00 01:56:00 Test Item Value Reference Range Interpretation Comments R-time (test code = R-time) 0.8 min 0.4-0.7 H [facility] AkzrivdRQAQKCFLHZ0207-00-35 01:56:00 Test Item Value Reference Range Interpretation Comments Split Point (test code = Split Point) 0.6 min [facility] UgynhopMIZWVFHMNH8234-99-50 01:56:00 Test Item Value Reference Range Interpretation Comments ACT (TEG) (test code = ACT (TEG)) 121 s 86-118 H [facility] JmvyusrNMDKDSTXTY8802-55-74 01:56:006.9[facility] HermannHEMATOLOGY 2012-12-29 01:56:0014.8[facility] BksjkplPJMKPBJOEX1001-30-85 01:56:005.05[facility] PrgpytfJSHPKXMUCK2710-17-35 01:56:0044.5[facility] UhemelaBUCLEYKVLC9812-74-23 01:56:0011.8[facility] DnkwgynMLEWMJSANQ8549-21-64 01:56:009.2[facility] MHSAMKQHOM5439-40-73 01:56:0033.2[facility] FvbfsixRTZCTKVFBA4330-57-39 01:56:00 88.1[facility] VmaxwggMFYKJGODZC0540-82-49 01:56:00 Test Item Value Reference Range Interpretation Comments MCH (test code = MCH) 29.3 pg 27.0-31.0 N [facility] WvcramvAXITWZTVWF1498-88-29 01:56:72879Qhodygqo HermannHEMATOLOGY 2012-12-29 01:56:0012.4[facility] AvpjivoPEHMFZYBBB8473-13-29 01:56:0014.0[facility] RdejtgbOFWLSXRCQT2673-51-99 01:56:00Normal (12/28/2012 20:56:00)[facility] AAVMRQWUJR7824-03-02 01:56:006.0[facility] ShzqfmvQVAVPANUWX3513-51-37 01:56:00 72.0[facility] PvtcgnoXJXXDXRHBG4494-09-91 01:56:000.9[facility] HermannHEMATOLOGY 2012-12-29 01:56:001.7[facility] GziztjcPQRCHJGSIH6791-96-05 01:56:009.2[facility] VgqiestWSTDEIQDWM9969-96-19 01:56:008.0[facility] HosjtxoSRULCKNEDV4525-07-79 01:56:000.0[facility] HmudyaxCHFMQNEMVQ6226-36-42 01:56:00Normal (12/28/2012 20:56:00)[facility]
[2020-07-12 17:56] LABS: Absolute Lymphocytes (CBC) 1.4 K/uL (0.7-4.9); Basophils % 0.3 % (0-1.3); Hematocrit 48.6 % (39.6-49.0); Lymphocytes % 10.9 % (15.3-44.8); MPV 9.4 fL (7.6-11.3); RBC Red Blood Cell Count 5.75 M/uL (4.33-5.43)
[2020-07-12 18:05] LABS: Protime INR 1.01
--- NOTE | 2020-07-12 18:11 | EDPHYS ---
Physician Documentation [facility] Name: Alex Abbott Age: 30 yrs Sex: Male : 1990 Arrival Date: 07/12/2020 Time: 15:04 Bed 23 Private MD: BHUPENDRA Physician Roshan Gomez HPI: 07/12 17:11 This 30 yrs old Male presents to ER via Ambulatory with complaints of Meth sherif Withdrawal. 17:11 The patient presents to the emergency department with depression, suicide ideation, but sherif the patient has no formulated plan. Onset: The symptoms/episode began/occurred 1 day(s) ago. Past psychiatric history: Prior diagnosis: bipolar disorder, depression. Associated signs and symptoms: Pertinent positives; anxiety, paranoia, substance abuse, suicide ideation. Severity of symptoms: At their worst the symptoms were moderate in the emergency department the symptoms are unchanged. The patient has not experienced similar symptoms in the past. Historical: - Allergies: 15:08 lithium; ll1 15:08 quetiapine fumarate; ll1 15:08 RISPERIDONE; ll1 15:08 ziprasidone HCl; ll1 - PMHx: 15:08 ADD/ADHD; Anxiety; Bipolar disorder; Depression; drug overdose; Pneumonia; ll1 Schizophrenia; - PSHx: 15:08 None; ll1 - Immunization history:: Flu vaccine is not up to date. - Social history:: Smoking status: Patient reports the use of cigarette tobacco products, smokes one-half pack cigarettes per day. - Family history:: not pertinent. ROS: 17:11 Constitutional: Negative for fever, chills, and weight loss, Eyes: Negative for injury, sherif pain, redness, and discharge, ENT: Negative for injury, pain, and discharge, Neck: Negative for injury, pain, and swelling, Cardiovascular: Negative for chest pain, palpitations, and edema, Respiratory: Negative for shortness of breath, cough, wheezing, and pleuritic chest pain, Abdomen/GI: Negative for abdominal pain, nausea, vomiting, diarrhea, and constipation, Back: Negative for injury and pain, : Negative for injury, bleeding, discharge, and swelling, MS/Extremity: Negative for injury and deformity, Skin: Negative for injury, rash, and discoloration, Neuro: Negative for headache, weakness, numbness, tingling, and seizure, Allergy/Immunology: Negative for hives, rash, and allergies, Endocrine: Negative for neck swelling, polydipsia, polyuria, polyphagia, and marked weight changes, Hematologic/Lymphatic: Negative for swollen nodes, abnormal bleeding, and unusual bruising. 17:11 Psych: Positive for depression, suicidal ideation. Exam: 17:11 Constitutional: This is a well developed, well nourished patient who is awake, alert, sherif and in no acute distress. Head/Face: Normocephalic, atraumatic. Eyes: Pupils equal round and reactive to light, extra-ocular motions intact. Lids and lashes normal. Conjunctiva and sclera are non-icteric and not injected. Cornea within normal limits. Periorbital areas with no swelling, redness, or edema. ENT: Nares patent. No nasal discharge, no septal abnormalities noted. Tympanic membranes are normal and external auditory canals are clear. Oropharynx with no redness, swelling, or masses, exudates, or evidence of obstruction, uvula midline. Mucous membranes moist. Neck: Trachea midline, no thyromegaly or masses palpated, and no cervical lymphadenopathy. Supple, full range of motion without nuchal rigidity, or vertebral point tenderness. No Meningismus. Chest/axilla: Normal chest wall appearance and motion. Nontender with no deformity. No lesions are appreciated. Cardiovascular: Regular rate and rhythm with a normal S1 and S2. No gallops, murmurs, or rubs. Normal PMI, no JVD. No pulse deficits. Respiratory: Lungs have equal breath sounds bilaterally, clear to auscultation and percussion. No rales, rhonchi or wheezes noted. No increased work of breathing, no retractions or nasal flaring. Abdomen/GI: Soft, non-tender, with normal bowel sounds. No distension or tympany. No guarding or rebound. No evidence of tenderness throughout. Back: No spinal tenderness. No costovertebral tenderness. Full range of motion. Male : Normal genitalia with no discharge or lesions. Skin: Warm, dry with normal turgor. Normal color with no rashes, no lesions, and no evidence of cellulitis. MS/ Extremity: Pulses equal, no cyanosis. Neurovascular intact. Full, normal range of motion. Neuro: Awake and alert, GCS 15, oriented to person, place, time, and situation. Cranial nerves II-XII grossly intact. Motor strength 5/5 in all extremities. Sensory grossly intact. Cerebellar exam normal. Normal gait. 17:11 Psych: Behavior/mood is anxious, suicidal, depressed, Affect is animated, Oriented to person, place, time, Patient has no thoughts/intents to harm self or others. Judgement / Insight is normal. Memory is normal. Delusions/hallucinations are not present. 19:25 ECG was reviewed by the Attending Physician. sherif Vital Signs: 15:09 BP 131 / 105; Pulse 105; Resp 17; Temp 98.3; Pulse Ox 98% ; Weight 58.97 kg; Height 5 ll1 ft. 9 in. (175.26 cm); Pain 0/10; 18:08 BP 127 / 101; Pulse 103; Resp 16; Pulse Ox 99% on R/A; ph 21:46 BP 124 / 78; Pulse 100; Resp 16; Temp 98.4; Pulse Ox 100% ; mw2 23:27 BP 118 / 82; Pulse 105; Resp 14; Temp 97.9; Pulse Ox 100% on R/A; vg1 07/13 00:15 BP 120 / 80; Pulse 92; Resp 16; Temp 98; Pulse Ox 100% on R/A; ea 07/12 15:09 Body Mass Index 19.20 (58.97 kg, 175.26 cm) ll1 MDM: 07/12 15:59 Patient medically screened. sherif 17:19 Differential diagnosis: drug withdrawal. acute psychotic break, depression, psychosis sherif secondary to non-compliance. Data reviewed: vital signs, nurses notes, lab test result(s), EKG. Data interpreted: library monitor: rate is 105 beats/min, rhythm is regular, Pulse oximetry: on room air is 98 %. Test interpretation: by ED physician or midlevel provider: ECG. Counseling: I had a detailed discussion with the patient and/or guardian regarding: the historical points, exam findings, and any diagnostic results supporting the discharge/admit diagnosis, lab results, the need to transfer to another facility, for higher level of care, [facility] does not immediately have the required specialist. 22:51 ED course: Dr Valenzuela accepted the patient at 2250. tw4 07/12 16:01 Order name: Acetaminophen; Complete Time: 18:41 sherif 07/12 16:01 Order name: Basic Metabolic Panel; Complete Time: 18:41 [facility] 07/12 16:01 Order name: CBC with Diff; Complete Time: 18:41 [facility] 07/12 16:01 Order name: ETOH Level; Complete Time: 18:41 [facility] 07/12 16:01 Order name: Hepatic Function; Complete Time: 18:41 [facility] 07/12 16:01 Order name: PT-INR; Complete Time: 18:41 [facility] 07/12 16:01 Order name: Ptt, Activated; Complete Time: 18:41 [facility] 07/12 16:01 Order name: Salicylate; Complete Time: 19:27 [facility] 07/12 20:27 Order name: SARS-COV-2 RT PCR; Complete Time: 20:36 EDMS 07/12 16:01 Order name: EKG; Complete Time: 16:02 [facility] 07/12 16:01 Order name: EKG - Nurse/Tech; Complete Time: 19:31 [facility] 07/12 16:01 Order name: IV Saline Lock; Complete Time: 18:09 [facility] 07/12 16:01 Order name: Labs collected and sent; Complete Time: 18:09 [facility] EC:25 Rate is 81 beats/min. Rhythm is regular. QRS [place] is Normal. NM interval is normal. QRS sherif interval is normal. QT interval is normal. No Q waves. T waves are Inverted in leads II, III, aVF, V3, V4, V5, V6. No ST changes noted. Clinical impression: Abnormal EKG without significant change and No evidence of ischemia. Interpreted by me. Reviewed by me. Administered Medications: Discontinued: NS 0.9% 1000 ml IV at 125 ml/hr continuous Discontinued: Thiamine 100 mg IV at per protocol once 19:29 Drug: NS 0.9% 1000 ml Route: IV; Rate: 125 ml/hr; Site: right antecubital; ph 23:59 Follow up: IV Status: Completed infusion vg1 19:29 Drug: Thiamine 100 mg Route: IV; Rate: per protocol; Site: right antecubital; ph 07/13 00:00 Follow up: Response: No adverse reaction vg1 Disposition: 07/12/20 18:10 Transfer ordered to [facility]. Diagnosis are Adverse effect of amphetamines, Abuse of non-psychoactive substances, Bipolar disorder, Major depressive disorder, recurrent, Suicidal ideations. - Reason for transfer: Higher level of care. - Accepting physician is Dr Valenzuela. - Condition is Stable. - Problem is new. - Symptoms have improved. Signatures: Dispatcher [employer] EDMS Roshan Gomez MD MD cha Mickail, Joel, PA PA jmm Hall, Patricia, RN RN Mila Ann, RN RN Carlton Correa MD MD tw4 Jennifer De La Cruz RN RN ll1 Angelina Schroeder RN vg1 Corrections: (The following items were deleted from the chart) 07/12 16:20 16:02 Head Brain Wo Cont+CT.RAD.BRZ ordered. EDMS EDMS 20:37 17:28 CORONAVIRUS+MR.LAB.BRZ ordered. EDMS EDMS 22:51 18:10 07/12/2020 18:10 Transfer ordered to Psych Facility. Diagnosis is Adverse effect tw4 of amphetamines; Abuse of non-psychoactive substances; Bipolar disorder; Major depressive disorder, recurrent; Suicidal ideations. Reason for transfer: Higher level of care. Accepting physician is psych . Condition is Stable. Problem is new. Symptoms have improved. [facility] 07/13 00:24 07/12 22:51 07/12/2020 18:10 Transfer ordered to Psych Facility. Diagnosis is Adverse ea effect of amphetamines; Abuse of non-psychoactive substances; Bipolar disorder; Major depressive disorder, recurrent; Suicidal ideations. Reason for transfer: Higher level of care. Accepting physician is Dr Valenzuela. Condition is Stable. Problem is new. Symptoms have improved. tw4
--- NOTE | 2020-07-12 18:11 | ER ---
Nurse's Notes [facility] Name: Alex Abbott Age: 30 yrs Sex: Male : 1990 Arrival Date: 07/12/2020 Time: 15:04 Bed 23 Private MD: Diagnosis: Adverse effect of amphetamines;Abuse of non-psychoactive substances;Bipolar disorder;Major depressive disorder, recurrent;Suicidal ideations Presentation: 07/12 15:09 Chief complaint: Patient states: Meth use off/on. States he hasn't had any since ll1 yesterday. Has pain all over. States he wants assistance getting into rehab. No N/V/D. No fever. Denies SI/HI. Coronavirus screen: Client denies travel out of the [place] in the last 14 days. At this time, the client does not indicate any symptoms associated with coronavirus-19. Ebola Screen: Patient denies travel to an Ebola-affected area in the 21 days before illness onset. Initial Sepsis Screen: Does the patient meet any 2 criteria? HR > 90 bpm. No. Patient's initial sepsis screen is negative. Does the patient have a suspected source of infection? No. Patient's initial sepsis screen is negative. Risk Assessment: Do you want to hurt yourself or someone else? Patient reports no desire to harm self or others. Onset of symptoms was July 12, 2020. 15:09 Method Of Arrival: Ambulatory ll1 15:09 Acuity: ROCIO 3 ll1 Historical: - Allergies: 15:08 lithium; ll1 15:08 quetiapine fumarate; ll1 15:08 RISPERIDONE; ll1 15:08 ziprasidone HCl; ll1 - PMHx: 15:08 ADD/ADHD; Anxiety; Bipolar disorder; Depression; drug overdose; Pneumonia; ll1 Schizophrenia; - PSHx: 15:08 None; ll1 - Immunization history:: Flu vaccine is not up to date. - Social history:: Smoking status: Patient reports the use of cigarette tobacco products, smokes one-half pack cigarettes per day. - Family history:: not pertinent. Screenin:25 Abuse screen: Denies threats or abuse. Denies injuries from another. Nutritional ph screening: No deficits noted. Tuberculosis screening: No symptoms or risk factors identified. Fall Risk None identified. Assessment: 16:20 Reassessment: Patient appears in no apparent distress at this time. Pt pacing in room, ph requested that pt sit down for lab draw, pt states, " I don't know if I want to do that right now." Appears anxious, states that he last used meth 2 days ago and has not slept since, denies pain at this time. 17:01 Reassessment: Dr Gomez at bedside. ph 18:07 General: Appears in no apparent distress. slender, Behavior is cooperative, anxious, ph restless. Pain: Complains of pain in "all over". Neuro: Level of Consciousness is awake, alert, Oriented to person, place, situation, Pupils are dilated. Cardiovascular: Capillary refill < 3 seconds in bilateral fingers Patient's skin is warm and dry. Respiratory: Airway is patent Respiratory effort is even, unlabored. GI: No signs and/or symptoms were reported involving the gastrointestinal system. Derm: Skin is intact, Skin is pink, warm \\T\\ dry. Musculoskeletal: Circulation, motion, and sensation intact. Range of motion: intact in all extremities. 18:59 Reassessment: Spoke to nurse from [facility] who stated that [facility] will not have a ph bed until tomorrow but she did not feel like the pt would qualify because he is not suicidal at this time and they do not have a detox program for methamphetamine. 20:00 Reassessment: Patient appears in no apparent distress at this time. Patient is alert, vg1 oriented x 3, equal unlabored respirations, skin warm/dry/pink. 23:07 Reassessment: Patient appears in no apparent distress at this time. Patient is alert, vg1 oriented x 3, equal unlabored respirations, skin warm/dry/pink. 07/13 00:23 Reassessment: Patient and/or family updated on plan of care and expected duration. Pain ea level reassessed. Patient is alert, oriented x 3, equal unlabored respirations, skin warm/dry/pink. [facility] at facility for transfer, report given to EMS, pt left ED via stretcher per EMS. Pt tolerating well. Vital Signs: 07/12 15:09 BP 131 / 105; Pulse 105; Resp 17; Temp 98.3; Pulse Ox 98% ; Weight 58.97 kg; Height 5 ll1 ft. 9 in. (175.26 cm); Pain 0/10; 18:08 BP 127 / 101; Pulse 103; Resp 16; Pulse Ox 99% on R/A; ph 21:46 BP 124 / 78; Pulse 100; Resp 16; Temp 98.4; Pulse Ox 100% ; mw2 23:27 BP 118 / 82; Pulse 105; Resp 14; Temp 97.9; Pulse Ox 100% on R/A; vg1 07/13 00:15 BP 120 / 80; Pulse 92; Resp 16; Temp 98; Pulse Ox 100% on R/A; ea 07/12 15:09 Body Mass Index 19.20 (58.97 kg, 175.26 cm) ll1 ED Course: 07/12 15:04 Patient arrived in ED. mr 15:09 Arm band placed on. ll1 15:11 Triage completed. ll1 15:59 Roshan Gomez MD is Attending Physician. sherif 16:15 Gauri Kiran, RN is Primary Nurse. ph 16:25 Patient has correct armband on for positive identification. Bed in low position. Call ph light in reach. Side rails up X 1. 17:45 Inserted saline lock: 22 gauge in right antecubital area, using aseptic technique. ph Blood collected. 18:32 [facility] bd 19:25 Primary Nurse role handed off by Gauri Kiran, RN mw2 20:39 faxed patient information to all psych facilities. mw2 21:06 nurse to nurse from [facility]. mw2 21:45 nurse to nurse from [facility]. mw2 22:48 [facility] doc to doc. mw2 22:53 administrative approval given by Chilo Bravo/ patient has been accepted to [facility]/ Dr. Romo has accepted the patient in transfer. 23:21 Angelina Schroeder, RN is Primary Nurse. vg1 07/13 00:22 No provider procedures requiring assistance completed. IV discontinued, intact, ea bleeding controlled, No redness/swelling at site. Pressure dressing applied. Administered Medications: Discontinued: NS 0.9% 1000 ml IV at 125 ml/hr continuous Discontinued: Thiamine 100 mg IV at per protocol once 07/12 19:29 Drug: NS 0.9% 1000 ml Route: IV; Rate: 125 ml/hr; Site: right antecubital; ph 23:59 Follow up: IV Status: Completed infusion vg1 19:29 Drug: Thiamine 100 mg Route: IV; Rate: per protocol; Site: right antecubital; 07/13 00:00 Follow up: Response: No adverse reaction vg1 Outcome: 07/12 18:10 ER care complete, transfer ordered by MD. gorman 07/13 00:22 Transferred by ground EMS to other acute care facility: [facility] . X-rays sent w/ ea patient. Condition: stable Instructed on the need for transfer, Demonstrated understanding of instructions. 00:24 Patient left the ED. ea Signatures: Ashlie Gomez Corey, MD MD cha Rivera, Katlyn mr Kiran, Gauri, RN RN Mila Cheng RN RN Randy Brewer2 Angelina Schroeder RN RN vg1 Jennifer De La Cruz, RN RN ll1 Corrections: (The following items were deleted from the chart) 07/12 15:12 15:09 Chief complaint: Patient states: Meth use off/on. States he hasn't had any since ll1 yesterday. Has pain all over. States he wants assistance getting into rehab. No N/V/D. ll1
[2020-07-12 18:20] LABS: ALT/SGPT 42 U/L (12-78); AST/SGOT 27 U/L (15-37); Albumin 5.4 g/dL (3.4-5.0); Alkaline Phosphatase 47 U/L (45-117); BUN Blood Urea Nitrogen 27 mg/dL (7-18); Bicarbonate 24 mmol/L (21-32); Bilirubin Direct 0.3 mg/dL (0-0.2); Glucose Level 85 mg/dL (74-106); Potassium 4.4 mmol/L (3.5-5.1); Protein, Total 9.4 g/dL (6.4-8.2); Sodium Level 132 mmol/L (136-145)
[2020-07-12] MEDS ORDERED: NA CHLORIDE 0.9% 1,000 ML ONE (19:41)
[2020-07-13 18:51] VITALS: O2SAT 100
[2020-07-13 18:54] VITALS: BP 120/80; TEMP 98
== END 2020-07-13 00:24 ==
LOC: ER 14:59
DX: F15.23 Other stimulant dependence with withdrawal (principal); F55.8 Abuse of other non-psychoactive substances; F31.9 Bipolar disorder, unspecified; R45.851 Suicidal ideations; Z20.822 Contact with and (suspected) exposure to COVID-19; F17.210 Nicotine dependence, cigarettes, uncomplicated; F90.9 Attention-deficit hyperactivity disorder, unspecified type; F20.9 Schizophrenia, unspecified; F41.9 Anxiety disorder, unspecified
CPT/HCPCS: 96361; 93005; 85025; 80048; 36415; 80320; 80329 ×2; 85610; 80076; 85730; 96374; 99285; U0003; J7030

== ENCOUNTER 2020-09-18 14:03 | Emergency (ER) | payer OTHER ==
--- OUTSIDE RECORDS SUMMARY | 2020-09-18 14:10 | XMS REPORT | Continuity of Care Document ---
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 175.26 cm [facility] [place] BMI Calculated 2016-05-01 01:44:00 [facility] [place] Weight 2016-05-01 01:44:00 [facility] Systolic (mm Hg) 2016-05-01 01:44:00 [facility] Diastolic (mm Hg) 2016-05-01 01:44:00 [facility] [place] Heart Rate 2016-05-01 01:44:00 [facility] Respitory Rate 2016-05-01 01:44:00 [facility] Temperature Oral (F) 2016-05-01 01:44:00 98.1 F [facility] [place] Respitory Rate 2016-04-30 13:02:00 [facility] Systolic (mm Hg) 2016-04-30 13:02:00 [place] [facility] [place] Diastolic (mm Hg) 2016-04-30 13:02:00 [facility] Heart Rate 2016-04-30 13:02:00 [facility] [place] Temperature Oral (F) 2016-04-30 13:02:00 98.0 F [facility] BMI Calculated 2016-04-30 10:35:00 [facility] [place] Height 2016-04-30 10:35:00 175.26 cm [facility] [place] Weight 2016-04-30 10:35:00 [facility] Respitory Rate 2016-04-30 10:35:00 [facility] Temperature Oral (F) 2016-04-30 10:35:00 98.0 F [facility] [place] Heart Rate 2016-04-30 10:35:00 [facility] [place] Systolic (mm Hg) 2016-04-30 10:35:00 [facility] Diastolic (mm Hg) 2016-04-30 10:35:00 [facility] [place] Respitory Rate 2016-04-07 16:22:00 [facility] Systolic (mm Hg) 2016-04-07 16:22:00 [place] [facility] [place] Diastolic (mm Hg) 2016-04-07 16:22:00 [facility] [place] Temperature Oral (F) 2016-04-07 16:22:00 98.2 F [facility] [place] Heart Rate 2016-04-07 16:22:00 [facility] Systolic (mm Hg) 2016-04-07 13:26:00 [facility] Diastolic (mm Hg) 2016-04-07 13:26:00 [facility] [place] Temperature Oral (F) 2016-04-07 13:26:00 98.5 F [facility] [place] Heart Rate 2016-04-07 13:26:00 [facility] Respitory Rate 2016-04-07 13:26:00 [facility] [place] Heart Rate 2016-04-07 12:55:00 [facility] Temperature Oral (F) 2016-04-07 12:55:00 98.5 F [facility] [place] Respitory Rate 2016-04-07 12:55:00 [facility] Systolic (mm Hg) 2016-04-07 12:55:00 [facility] Diastolic (mm Hg) 2016-04-07 12:55:00 [facility] Weight 2016-04-07 01:47:00 [facility] [place] Height 2016-04-07 01:47:00 175.26 cm [facility] [place] BMI Calculated 2016-04-07 01:47:00 [facility] [place] Systolic (mm Hg) 2016-01-14 07:34:00 [place] [facility] [place] Diastolic (mm Hg) 2016-01-14 07:34:00 [facility] Respitory Rate 2016-01-14 07:34:00 [facility] Systolic (mm Hg) 2016-01-14 04:36:00 [place] [facility] [place] Diastolic (mm Hg) 2016-01-14 04:36:00 [facility] [place] Respitory Rate 2016-01-14 04:36:00 [facility] [place] Systolic (mm Hg) 2016-01-14 03:28:00 [facility] Diastolic (mm Hg) 2016-01-14 03:28:00 [facility] [place] Respitory Rate 2016-01-14 03:28:00 [facility] Heart Rate 2016-01-14 02:47:00 [facility] Weight 2016-01-14 02:12:00 [facility] BMI Calculated 2016-01-14 02:12:00 [facility] [place] Height 2016-01-14 02:12:00 175.26 cm [facility] Temperature Oral (F) 2016-01-14 02:12:00 98.5 F [facility] [place] Heart Rate 2016-01-14 02:12:00 [facility] [place] Diastolic (mm Hg) 2012-12-31 01:48:00 [facility] Systolic (mm Hg) 2012-12-31 01:48:00 [place] [facility] [place] Respitory Rate 2012-12-31 01:48:00 [facility] [place] Heart Rate 2012-12-31 01:48:00 [facility] Temperature Oral (F) 2012-12-31 01:48:00 98.3 F [facility] Diastolic (mm Hg) 2012-12-30 20:21:00 [facility] Systolic (mm Hg) 2012-12-30 20:21:00 [place] [facility] [place] Respitory Rate 2012-12-30 20:21:00 [facility] [place] Heart Rate 2012-12-30 20:21:00 [facility] Temperature Oral (F) 2012-12-30 20:21:00 97.5 F [facility] [place] Heart Rate 2012-12-30 16:18:00 [facility] [place] Temperature Oral (F) 2012-12-30 16:18:00 97 F [facility] Respitory Rate 2012-12-30 16:18:00 [facility] Diastolic (mm Hg) 2012-12-30 16:18:00 [facility] Systolic (mm Hg) 2012-12-30 16:18:00 [facility] Height 2012-12-29 02:00:00 175.26 cm [facility] [place] Weight 2012-12-29 02:00:00 [facility] Procedures This patient has no known procedures. Plan of Care Planned Activity Planned Date Details Comments Source Future Scheduled 2020-11-29 INFLUENZA VACCINE Drake [facility] 00:00:00 [code = INFLUENZA VACCINE] Future Scheduled 2006 Hepatitis C [facility] 00:[facility]:00 screening (procedure) [code = 985811513] Future Scheduled 2000 COVID-19 VACCINE (1) Shawn ston [facility] 00:00:00 [code = COVID-19 VACCINE (1)] Encounters Start End Encounter Admission Attending Care Care Encounter Source Date/Time Date/Time Type Type Clinicians Facility Department ID 2019-12-14 2019-12-15 Outpatient Diego [facility] [id number] 23:20:04 03:22:00 Elio Sweeney [facility] 2019-12-14 2019-12-14 Emergency E [facility] [id number] Mem[facility] 23:20:00 23:20:00 [place] [facility] 2018-04-18 2018-04-18 Outpatient Shawna, [facility] [id number] 05:54:00 10:31:00 Sb Orion Echeverria 2018-04-12 2018-04-14 Outpatient Mena, [facility] [id number] 15:46:00 15:30:00 Eddie Deluna 06 2016-04-30 2016-05-01 Out[place] [id number] 19:27:00 01:00:00 Hiram Conrad 05 2016-04-30 2016-04-30 Outpatient Heide [place] [id number] 04:30:00 07:04:00 Santana Shahla Jaya 2016-04-06 2016-04-07 Outpatient Constant[address] [facility] [id number] 19:26:00 10:46:00 Mirta andre 02 Yary 2016-01-13 2016-01-14 Outpatient James [facility] [id number] 21:11:00 03:00:00 Noemi Shi 01 Results Test Description Test Time Test Comments Results Result Comments Source HEMATOLOGY 2019-12-15 9.2 [facility] 04:57:00 HEMATOLOGY 2019-12-15 4.56 [facility] nn 04:57:00 HEMATOLOGY 2019-12-15 13.3 [facility] nn 04:57:00 HEMATOLOGY 2019-12-15 39.7 [facility] nn 04:57:00 HEMATOLOGY 2019-12-15 87.0 [facility] nn 04:57:00 HEMATOLOGY 2019-12-15 04:57:00 Test Item Value Reference Range Interpretation Comme nts MCH (test code = MCH) 29.2 pg 27.0-31.0 [facility] KokuinoAAMHGHVCHE1389-13-96 04:57:0033.6[facility]annHEMATOLOGY 2019-12-15 04:57:0013.1[facility] UaeevsjOQBCOLJIQB0087-16-40 04:57:26265Qexmzhuk GgstoynTMEPQQRKOO7446-49-61 04:57:009.8[facility] ZntreiaSSWHMZAFQZ4677-94-18 04:57:0079.0[facility] GhwiyswPDMCRWRVSA4808-03-24 04:57:0013.7[facility] [place] VBOCZOLANS6092-03-46 04:57:006.5[facility] BtjnemeDCFCYXSPBU8177-83-46 04:57:000.5 [facility] TeyqxngGHEXBXAZLQ6392-57-98 04:57:000.3[facility]annHEMATOLOGY 2019-12-15 04:57:007.3[facility] VukflsuZSUJCRMPDE1906-25-54 04:57:001.3[facility] TdfqdkgFLIGNNIXZJ1870-00-39 04:57:000.6[facility] JiwwkohPGBVFKENNU1637-31-14 04:57:00<3[facility] ZrqhzpsZQIJGNBWVV4374-42-84 04:57:00<0.003[facility] BllooflMFHVYDHCLV2200-06-27 04:57:00<2 (12/14/19 11:57 PM)[facility] [place] FJHERNYUCG2883-88-93 04:57:003.4[facility] HermannCHEM LKSUI7433-40-79 04:57:13935 [facility]annCHEM RPKTN9539-00-85 04:57:007[facility]annCHEM PANEL 2019-12-15 04:57:001.10[facility]annCHEM CVFFT4754-79-96 04:57:70297Ogtsxvbc HermannCHEM KQBAT4928-61-93 04:57:003.1[facility]annCHEM WPNRX8746-97-75 04:57:86203Yrjnnhhh HermannCHEM PEJLI7757-16-14 04:57:0027[facility]annCHEM MLYFX9285-80-34 04:57:008.9[facility]annCHEM GFAMC5086-17-24 04:57:004.2 [facility]annCHEM QPZBV6013-82-09 04:57:008.1[facility]annCHEM PANEL 2019-12-15 04:57:00 Test Item Value Reference Range Interpretation Comments B/C Ratio (test code = B/C Ratio) 6 1 6-25 [facility]annCHEM WOSHP2078-14-11 04:57:0089[facility]annCHEM PANEL 2019-12-15 04:57:007.6[facility]annCHEM MRFSB5506-70-25 04:57:0023[facility]annCHEM RGFXC2859-00-29 04:57:0016[facility]annCHEM ZNMSZ5591-48-12 04:57:0038[facility]annCHEM CFFWG2755-63-11 04:57:000.3[facility]annCHEM CCNXD0505-42-08 04:57:003.4[facility]annCHEM ZFZCE2648-22-24 04:57:00 Test Item Value Reference Range Interpretation Comments A/G Ratio (test code = A/G Ratio) 1.2 1 0.7-1.6 [facility] HermannCARDIAC WVKESQX2597-54-34 13:17:70902Ebumuoyz [facility] XCBWEPBFJCFS1758-35-38 13:17:0014.8[facility] FotqvsxIMMWRBFAUAWC5013-00-39 13:17:0093[facility] HamrwloBBRBBCABCNGW2659-19-13 13:17:001.07[facility] [place] TYQJIMATQNIF3225-30-02 13:17:03070Srrskxcl LnzuhpzTUEFXKAGQKVN3783-86-93 13:17:003.8[facility] NofthgfYDVEKVBBBQVV9959-31-08 13:17:009.3[facility] QMTCYUHCKUAE4322-52-47 13:17:0023[facility] MikqpdiBIOVAORKJXAV7282-94-26 13:17:00 101[facility] VgilmjgYAOWZJHWZRHA7695-53-26 13:17:0094[facility] HermannELECTROLYTES 2018-04-18 13:17:0017[facility] EpywsfhCKHYYFEJTF6793-15-84 13:17:0033.6[facility] QhiobryXSUCHNPBZQ7197-56-52 13:17:0014.7[facility] GbwlcdrRRAFWSHSHW6913-50-94 13:17:00 Test Item Value Reference Range Interpretation Comments MCH (test code = MCH) 27.9 pg 27.0-31.0 [place] VipkrcpQSKIAZIGMV2697-94-82 13:17:0083.1[facility] HermannHEMATOLOGY 2018-04-18 13:17:009.9[facility] OjwsfujRASHMFLWGN4551-92-06 13:17:64817Oexzrjgw LlpqfqwSBAVREQQSE5633-49-99 13:17:004.63[facility] HpebungVJGEQWENVE0830-84-08 13:17:0012.9[facility] UmjzifbRWRWTFYDRF9880-78-33 13:17:0038.4[facility] [place] NDOVCQIRTZ0328-95-07 13:17:008.2[facility] NlxarccKNMWHPNVMR2932-75-27 13:17:000.9 [facility] GmhsnigUQVVOAEOEE4104-65-02 13:17:000.1[facility] HermannHEMATOLOGY 2018-04-18 13:17:001.1[facility] HsdxghjIFFFHTZYYG0554-09-35 13:17:006.1[facility] ZedqfncVADSQSOMSA7101-85-52 13:17:0011.1[facility] QcevstdRKMWSSAAER7303-42-05 13:17:000.9[facility] XvzunrgXPHHBMAJZG0994-15-91 13:17:000.2[facility] [place] ULRTMUWUUD6656-72-72 13:17:0074.9[facility] PcfwvikASHDKDJZEM8308-23-77 13:17:00 12.9[facility] EuqbkneDMJUQFGVBG6328-53-45 13:17:00<1.7[facility] BGZCTQDAZJ6286-48-07 13:17:003[facility] HermannCARDIAC MSTIZHX0074-39-17 10:11:00 <0.02[facility] HermannCHEM QQAZO8134-26-37 10:11:003.7[facility] HermannCHEM AKZIE8777-16-27 10:11:002.1[facility] MddtmjcUMVOVQNLGDPY4174-85-56 10:11:0011.0 [facility] EwfuzanRTPLTQCEBXBB5584-10-07 10:11:000.90[facility] HermannELECTROLYTES 2018-04-13 10:11:07261Gxjzuqry PphtmsuZBFIMINHFHUN1619-41-21 10:11:008.2[facility] OkglrnyXUTBVUTWPEMX9231-47-69 10:11:0025[facility] NoulecfAFWEFUDSAXNU5704-25-63 10:11:05500Dfqfhitc MjzshktESPQSKIZCKMB1701-62-19 10:11:004.0[facility] [place] BZBEVPYOWFJV3602-45-73 10:11:85098Ghbwfyjt MwohdzhSYUVJMDFIPTZ6316-39-78 10:11:0011[facility] TuoacxqBSZOZAHLFUJS3392-98-83 10:11:0085[facility] [place] UHJNMGPQIE1836-86-79 10:11:00 Test Item Value Reference Range Interpretation Comments MCH (test code = MCH) 27.9 pg 27.0-31.0 [facility] KvtkvojVJWPMYZWCG6641-93-43 10:11:0033.5[facility] HermannHEMATOLOGY 2018-04-13 10:11:0036.7[facility] ZjdpqbxYRHUFCAAVB9233-46-71 10:11:0083.1[facility] KudzgmmJRQXBRMVQB4558-05-09 10:11:004.42[facility] XitdflcTTLHOQTVAU0922-85-47 10:11:0012.3[facility] SvgwiifKEOMEKWUQM3483-84-17 10:11:008.5[facility] AFYUHQETTP7467-84-06 10:11:009.5[facility] JprclucIRDGUJUOBK8103-55-65 10:11:00 14.4[facility] HwyrdzxSODZSLYPEJ6161-42-53 10:11:72285Pmwivxlk HermannHEMATOLOGY 2018-04-13 10:11:001.2[facility] EecjgstZMSBSHBIPB3001-67-88 10:11:000.6[facility] WnlxurdHBEWYYODUQ4034-06-56 10:11:000.2[facility] KmespkqRTMCHAZDJP6513-76-58 10:11:000.0[facility] LljwrluYHTHBRALHU3625-13-99 10:11:002.3[facility] [place] NOAOYITUEC7756-04-49 10:11:000.3[facility] GrapzcaFDYWVEUERY9094-25-19 10:11:006.5 [facility] OocgdquMPDHLAQQID3766-58-14 10:11:0014.5[facility] HermannHEMATOLOGY 2018-04-13 10:11:006.7[facility] QeamqvnKGJBADMGOL8842-57-93 10:11:0076.2[facility] HermannPARATHYROID UGAPRRX3295-95-82 10:11:001.13[facility] HermannPARATHYROID RJVRUGW2874-22-83 10:11:001.17[facility]annURINE AND DNYDY2643-35-45 06:21:00 None Seen (04/13/18 12:21 AM)[facility] GEQXJ2229-52-12 06:21:001 [facility] IALKR6850-78-56 06:21:001[facility]annUR[facility] AND DBJKY9557-59-87 06:21:00 Test Item Value Reference Range Interpretation Comments UA Spec Grav (test code = UA Spec 1.009 1 Grav) [facility] ZQDXE5950-34-86 06:21:00Clear (04/13/18 12:21 AM) [facility] VSSWZ0808-56-26 06:21:00<=1.0[facility] AND ACEAL6715-61-99 06:21:00Negative *NA*(04/13/18 12:21 AM)[facility] URINE AND YUWWX3502-06-00 06:21:00Negative *NA*(04/13/18 12:21 AM)[facility] NOZDT4442-93-34 06:21:00Trace *ABN*(04/13/18 12:21 AM)[facility] ZRBVN0019-12-69 06:21:00Negative (04/13/18 12:21 AM)[facility] ETWBC0491-09-05 06:21:00Negative *NA*(04/13/18 12:21 AM) [facility] QYKSL8583-05-11 06:21:00 Test Item Value Reference Range Interpretation Comments UA pH (test code = UA pH) 7.0 1 5.0-8.0 [facility] AIHJI9413-10-84 06:21:00Negative (04/13/18 12:21 AM) [facility] VSQBL7793-86-35 06:21:00Negative (04/13/18 12:21 AM) [facility]annCARDIAC EYLLKRE2548-07-64 05:42:00<0.02[facility] [place] SMYEQVYCHR2777-24-71 05:42:00Negative *NA*(04/12/18 11:42 PM)[facility] BACTERIAL - RMDEEKTK9777-39-50 05:18:00Negative (04/12/18 11:18 PM)[facility] HermannDRUG MEMWGI4780-72-31 23:22:00Negative *NA*(04/12/18 5:22 PM)[facility] HermannDRUG VMVJPB4363-24-50 23:22:00Negative *NA*(04/12/18 5:22 PM)[facility]annDRUG WMRUCO8092-20-08 23:22:00Negative *NA*(04/12/18 5:22 PM)[facility]annDRUG GJCOVR6117-46-61 23:22:00Negative *NA*(04/12/18 5:22 PM)[facility]annDRUG XDUZAF5695-97-03 23:22:00Negative *NA*(04/12/18 5:22 PM)[facility]annDRUG YLQAOX9818-58-12 23:22:00See Note (04/12/18 5:22 PM)[facility] DRUG WDYQSE4885-13-10 23:22:00Negative *NA*(04/12/18 5:22 PM)[facility] DRUG HBIEKW3564-02-85 23:22:00Negative *NA*(04/12/18 5:22 PM)[facility] [place] CARDIAC BZCSMGA5476-91-53 22:38:000.02[facility] HermannCARDIAC KXIXKEY0565-48-47 22:38:0050[facility] HermannCHEM FZVSZ7019-20-11 22:38:01112Wmgkxtqp HermannCHEM BYMMQ0468-86-57 22:38:0017[facility] HermannCHEM BJWFR3325-64-53 22:38:0023 [facility]annCHEM OCOPL0982-55-08 22:38:004.0[facility] HermannCHEM PANEL 2018-04-12 22:38:007.4[facility] HermannCHEM VMDGU4468-14-43 22:38:000.3[facility] HermannCHEM SYMQM8494-62-67 22:38:0035[facility] HermannCHEM GFOPW4835-28-55 22:38:59898Rdvysquk HermannCHEM MBNRE1349-95-30 22:38:009.4[facility] HermannCHEM GKWGH0701-11-79 22:38:0032[facility] HermannCHEM TLVTT8934-27-22 22:38:004.2 [facility]annCHEM LPMBG5953-52-16 22:38:60517Qceqozxe HermannCHEM PANEL 2018-04-12 22:38:000.80[facility] HermannCHEM RIXWA9493-55-53 22:38:0012[facility] HermannCHEM KFIME4262-20-37 22:38:0093[facility] HermannCHEM YDAQK8847-85-09 22:38:00 Test Item Value Reference Range Interpretation Comments A/G Ratio (test code = A/G Ratio) 1.2 1 0.7-1.6 [place] HermannCHEM ALWZB8863-76-18 22:38:003.4[facility] HermannCHEM PANEL 2018-04-12 22:38:00 Test Item Value Reference Range Interpretation Comments B/C Ratio (test code = B/C Ratio) 15 1 6-25 [place] HermannCHEM WPSUU0134-68-59 22:38:008.2[facility]annHEMATOLOGY 2018-04-12 22:38:0032.1[facility] OvcdizdXBICFYHGAA0293-88-30 22:38:00 Test Item Value Reference Range Interpretation Comments MCH (test code = MCH) 27.4 pg 27.0-31.0 [place] TbrveqkOGBUEJRBSX0757-85-50 22:38:73117Frhoewjm HermannHEMATOLOGY 2018-04-12 22:38:0014.4[facility] MvoffnlARFTXURNQO0542-86-72 22:38:009.1[facility] DovdvucECWYTQBFFQ0102-93-39 22:38:0014.0[facility] VzkyebfXHIWQTGVHU1519-12-05 22:38:005.18[facility] SqzeoxvMKZWBPYFAU4248-78-74 22:38:0014.2[facility] FXYARLKSAP6183-77-61 22:38:0044.2[facility] WvrytvnUWNPLTZANU5183-79-45 22:38:00 85.3[facility] EjaimmgILNTCTGCMT5020-74-93 22:38:000.2[facility] HermannHEMATOLOGY 2018-04-12 22:38:000.1[facility] BrixxcpDMHHTFIPSJ8496-43-93 22:38:002.7[facility] FsbwbafDLRDNZVISF8318-32-82 22:38:000.4[facility] SictvrpKSWQCUKJJF3612-62-23 22:38:000.6[facility] BytbgmeUONLPVOKQS6643-69-23 22:38:0013.0[facility] ARSASDFDPZ9619-61-48 22:38:004.1[facility] TfodbqsXVYFFZMAMF6352-29-61 22:38:000.0 [facility] JzyzenmNSNAYWPFLY4738-12-42 22:38:000.0[facility] HermannHEMATOLOGY 2018-04-12 22:38:00Normal (04/12/18 4:38 PM)[facility] CkayyosNATEFMQVYE6158-12-00 22:38:00Normal (04/12/18 4:38 PM)[facility] BxbsqevTHROIDEOZR2893-61-60 22:38:00 92.9[facility] UmmusqqYZULOENCVL9342-37-11 22:38:00Moderate *ABN*(04/12/18 4:38 PM)[facility] HermannCARDIAC TEZABDB0453-26-38 03:21:077109Tdbvdrcu [facility] UZSMTUVQNPFD9864-50-57 03:21:0014.1[facility] HscdclbPHCXQVVWVBKJ1397-87-08 03:21:0011[facility] DrnhoagEFTRFHCQDLNP4699-45-60 03:21:003.2[facility] [place] GVMMZOXNUSNX6471-59-79 03:21:001.3[facility] DuujmqnUOVDFYQUGXIO3120-49-14 03:21:000.4[facility] NaoqzjnPRFKOMKPQGPC6803-09-64 03:21:32641Awnecrgb [facility] RSFZUMWKPCLZ1795-85-32 03:21:004.2[facility] EephfojTEKMNGNUPAPF3019-39-49 03:21:0048[facility] DymnbziGUVCRSQIAKFP1128-75-00 03:21:37516Bwwcyucc [facility] XHYQNIVYUHOS6025-77-44 03:21:0075[facility] LykaxqiKHAEEKKWRZXA5138-87-83 03:21:00 11[facility] RygljesOKWHBQQPILJO6240-05-21 03:21:004.1[facility] HermannELECTROLYTES 2016-05-01 03:21:001.00[facility] FlnbtsfDLSLFGBBNJPD5759-54-49 03:21:04721 [facility] EalqafxZTHZNBHXTWHM9337-22-73 03:21:87229Orqfdsbb HermannELECTROLYTES 2016-05-01 03:21:0024[facility] FbwbxvyKQEVNUACTXIT6336-88-46 03:21:007.4[facility] NbxoigzZDSTZOHCPOHY2946-09-67 03:21:009.1[facility] GlrvncnAMGFXOHXEAMJ6213-44-51 03:21:0052[facility] BfmfttuTRLFGHAQBJ8730-91-29 03:21:0086.0[facility] BOJRNTUPLW4329-18-22 03:21:00 Test Item Value Reference Range Interpretation Comments MCH (test code = MCH) 29.7 pg 27.0-31.0 [facility] QhuqiybXSBAXRVIRZ7187-07-69 03:21:0041.0[facility]annHEMATOLOGY 2016-05-01 03:21:004.77[facility] RqnluudEJPBAELZRZ3932-46-98 03:21:008.8[facility] IejxvkmZBCMKIPHYP6019-10-07 03:21:0014.2[facility] NnzowrxUXQJDTSGHG4315-40-21 03:21:18122Dowrzrrw ZeivapiWSSCRWWGWE2371-00-21 03:21:0034.5[facility] AZTFFLRXZU9569-21-61 03:21:0013.5[facility] XaxfmhiVUYAFYBVAJ9631-10-04 03:21:00 8.9[facility] OzdvfbtYUUWOLBFGB4933-44-43 03:21:0021.1[facility]annHEMATOLOGY 2016-05-01 03:21:0011.7[facility] BllonalLXYSOSIFVZ3272-82-92 03:21:001.8[facility] CrvnwcnTLQURTBWNU1481-39-23 03:21:005.7[facility] UxbpaluSRLHVZILKJ7222-04-20 03:21:001.7[facility] HfugkshXXQQMXVBAK0615-15-30 03:21:000.8[facility] NWPPCUTRKX9921-25-08 03:21:000.1[facility] KxskioyIVJJTDKKUI6749-52-39 03:21:001.0 [facility] RgnprfaGNDSIJAWXD7065-59-53 03:21:000.2[facility]annHEMATOLOGY 2016-05-01 03:21:0064.7[facility] FxazaanQESIDMVHIF3294-83-76 04:48:00<0.003 [facility] OmmaxnuVAHTNOYMQF5842-68-42 04:48:00<3[facility] HermannDRUG SCREEN 2016-04-07 02:43:00See Note *NA*(04/06/16 [...] pH) 5.5 1 5.0-8.0 [facility] XTSUX0531-79-76 02:43:00 Test Item Value Reference Range Interpretation Comments UA Spec Grav (test code = UA Spec 1.025 1 Grav) [facility] NKIGG4522-93-63 02:43:00Negative (04/06/16 8:43 PM) [facility] PZJWZ0129-71-10 02:43:000.2[facility] DZDGF7501-12-55 02:43:00Negative (04/06/16 8:43 PM)[facility] ZECBT1123-37-17 02:43:00Small *ABN*(04/06/16 8:43 PM)[facility] ZZMIJ7776-71-80 02:43:00Trace *ABN*(04/06/16 8:43 PM)[facility] PGSEP0025-35-46 02:43:00Clear (04/06/16 8:43 PM)[facility] STOOL 2016-04-07 02:43:00Yellow *NA*(04/06/16 8:43 PM)[facility] HermannCARDIAC ENZYMES 2016-04-07 02:38:73453Qxsvjdjm HermannCHEM IKCOZ0223-97-31 02:38:36675Aknjwkkf HermannCHEM RNIIZ1378-16-13 02:38:009.2[facility] HermannCHEM TKAEM5549-25-00 02:38:007.6[facility] HermannCHEM WXCRO9730-49-26 02:38:0022[facility] HermannCHEM ZCXAY7964-63-32 02:38:0043[facility] HermannCHEM TLISF8273-65-46 02:38:004.4 [facility]annCHEM YOHOM1191-90-60 02:38:0022[facility] HermannCHEM PANEL 2016-04-07 02:38:05801Wfpykqgh HermannCHEM SLDXN6812-90-79 02:38:000.81[facility] HermannCHEM JWFTK3201-01-53 02:38:32701Tugszpdf HermannCHEM IXTYB1638-59-29 02:38:004.4[facility] HermannCHEM NEBML7403-44-35 02:38:000.9[facility] HermannCHEM RKACX9025-51-57 02:38:0034[facility] HermannCHEM KNCIQ7008-09-00 02:38:0063 [facility]annCHEM GVOVI9736-91-65 02:38:0014[facility] HermannCHEM PANEL 2016-04-07 02:38:0017.4[facility] HermannCHEM EVOSJ9790-63-34 02:38:0017[facility] HermannCHEM JUUHF0023-24-78 02:38:003.2[facility] HermannCHEM SNKAW5207-64-56 02:38:001.4[facility] PxiimndHKGAUDESSD9315-10-10 02:38:001.7[facility] PPSGILTSRM3550-11-22 02:38:001.0[facility] WdewihbEMXJNNVETD7432-61-14 02:38:000.4 [facility] XdfxgspHEQACDQBMV9110-44-31 02:38:004.2[facility]annHEMATOLOGY 2016-04-07 02:38:009.2[facility] BnkffpdRDPPPWWLZU2330-42-32 02:38:000.6[facility] KboomwaEZEFTSNKSA5403-52-40 02:38:000.1[facility] BszccthTPOAUIFHHX3728-72-84 02:38:0026.3[facility] SurbmqgYQKTORSOIU9021-93-53 02:38:0063.1[facility] LUTOZTAWQD2721-05-16 02:38:006.6[facility] MfivtzrUQCNBJDQFL7457-30-10 02:38:00 42.9[facility] WbqdrvxLRRCXMAJPR2731-35-86 02:38:004.86[facility]annHEMATOLOGY 2016-04-07 02:38:0014.4[facility] PzsxkffXLHWVZKHAF2555-38-50 02:38:0088.3[facility] HuyzyxrGGMKLMEXBP5663-71-23 02:38:00 Test Item Value Reference Range Interpretation Comments MCH (test code = MCH) 29.6 pg 27.0-31.0 [facility] PpntvtoGMANEJEJQR6043-67-18 02:38:0033.6[facility] HermannHEMATOLOGY 2016-04-07 02:38:009.4[facility] GlisqmyMIZADMABSQ3165-06-32 02:38:0013.4[facility] ZurqpssJNVMESEUQV9577-13-80 02:38:87002Jmknfmex AszksqxZVYVUCRGZW8791-06-18 02:38:00<1.7[facility] LasehkbROSJIIPYYM8918-51-81 02:38:00<2 (04/06/16 8:38 PM)[facility] IAYEVBVN7272-20-50 02:38:00Negative (04/06/16 8:38 PM) [facility] HABILYCW7977-60-60 02:38:00Negative (04/06/16 8:38 PM) [facility] EnwvqdyCMKPMYXAX4555-67-21 06:42:008[facility] EilhmddPEFQOCVMS1622-12-15 06:42:002.5[facility] UhwetbrXGMKPFMDY9769-93-50 06:42:0016.9[facility] EFYSDTSOZ2770-52-15 06:42:001.6[facility] HcjjgtkEIVDGOTYR8527-02-09 06:42:41921 [facility] AsgbugeZQNUBIQFD8824-09-47 06:42:79315Jtxsewxg HermannCHEMISTRY 2012-12-30 06:42:0026[facility] EflpfouRZGUDQJHW7614-93-97 06:42:003.9[facility] DqwbwpgRALRLLERD8260-19-60 06:42:0047[facility] FawlrhgETFQDSAKT4741-78-96 06:42:006.4[facility] IsojtpwDBJVIDESY3772-46-15 06:42:0031[facility] LVYPLNRGR3724-81-21 06:42:009.0[facility] QnnlgzgTJLQRDJKL7538-61-40 06:42:000.4 [facility] IzdopqpVRNBQMVJC8233-36-22 06:42:10998Zcophxcp HermannCHEMISTRY 2012-12-30 06:42:0024[facility] UtcqftxTFIDDNKWQ4273-61-21 06:42:35621Ilxbhzhv FijwfjuMYWODWGWQ2407-41-49 06:42:003.9[facility] ZhdarqvOGGEFEDTX2792-43-57 06:42:008[facility] XquztzjPUBEIRDEA7558-68-01 06:42:001.0[facility] UKGTSBYYRO8481-55-25 06:42:00 Test Item Value Reference Range Interpretation Comments MCH (test code = MCH) 30.2 pg 27.0-31.0 N [facility] SgmacmxBCXNLZYKRV1876-02-27 06:42:06310Injnjzta HermannHEMATOLOGY 2012-12-30 06:42:0010.1[facility] JtmbpnvKBVPEPLRID9227-23-74 06:42:0013.4[facility] ZjzcaxpAJHUJMUKOF2715-95-85 06:42:0039.4[facility] OwcyvevGFLMONEERU4267-91-00 06:42:0089.5[facility] QuoqrjoBEOOIQXCVK0317-44-54 06:42:0013.3[facility] ZFZEAJSKVC8911-44-72 06:42:0033.7[facility] VgaaodwXGYPSMLQBA3453-13-63 06:42:00 12.5[facility] XhrkpmpYLGJUNIJAG5620-12-55 06:42:004.40[facility]annHEMATOLOGY 2012-12-30 06:42:009.4[facility] XudqeziGHQOPNGORS2318-59-87 06:42:0010.8[facility] ZwjpkzjPFFBVIZQDS7368-98-59 06:42:0079.6[facility] MxijgftKJZBKGDOCQ9023-32-08 06:42:000.1[facility] ZpwkodfINAECOVELT0304-33-31 06:42:000.1[facility] YTMGUQZMJG0471-22-86 06:42:009.9[facility] GoqmcsnHVDWVWOBRH3419-22-50 06:42:001.2 [facility] LvsxstfOJZXLOAJAZ9196-42-86 06:42:001.3[facility]annCHEMISTRY 2012-12-29 09:00:492.0[facility] ZzlsahkBHYKODSEJ2445-97-01 03:30:38See Note 5(12/28/2012 22:30:38)[facility] UvunkglRKIJNHJNB0650-63-35 03:30:38Negative *NA*(12/28/2012 22:30:38)[facility] UlhiiiwTJPQHHWVU1765-54-79 03:30:38Positive *ABN*(12/28/2012 22:30:38)[facility] RelvmocJOYWEIXMP8001-86-75 03:30:38Negative *NA*(12/28/2012 22:30:38)[facility] NwvgqdvRXFFIGCZB3027-98-18 03:30:38Negative *NA*(12/28/2012 22:30:38)[facility] HqbsglvJJLIZHWRN6329-67-70 03:30:38Negative *NA*(12/28/2012 22:30:38)[facility] GuwdiboHJQAKRUIS9510-26-65 03:30:38Negative *NA*(12/28/2012 22:30:38)[facility] JcakhkbIZNNGYUOA7329-00-55 03:30:38Negative *NA*(12/28/2012 22:30:38)[facility] KyzlviyCAKLRLVPLV9022-20-30 03:30:38Negative mg/dL *NA*(12/28/2012 22:30:38)[facility] NzhwexwIJPNORTRZV4496-08-12 03:30:38 Negative *NA*(12/28/2012 22:30:38)[facility] HblcrumUYCYJCCHQD5531-58-68 03:30:38 Negative (12/28/2012 22:30:38)[facility] SuguulpESEQJAYHFI8425-33-84 03:30:380.2 [facility] JtvogjmNLWZQZBSTL6312-39-11 03:30:38Negative (12/28/2012 22:30:38) [place] ZhbuuzcPTCZRTHZXI1013-67-09 03:30:38Negative (12/28/2012 22:30:38) [place] CuhafymMOLGNZHCMN1788-62-49 03:30:38 Test Item Value Reference Range Interpretation Comments UA pH (test code = UA pH) 7.0 1 5.0-8.0 N [place] AbzmoobJKJLOEHDMM1621-04-50 03:30:38Negative mg/dL (12/28/2012 22:30:38)[facility]QLOWTODMN5688-24-58 03:30:38 Test Item Value Reference Range Interpretation Comments UA Spec Grav (test code = UA Spec 1.010 1 N Grav) [facility] HospitalRkkcwumZQSAGDFQWF8733-96-48 03:30:38Negative mg/dL (12/28/2012 22:30:38)[facility] HospitalQxswagtHAGTQXTLSZ7589-42-87 03:30:38Clear (12/28/2012 22:30:38)[place] WgoqrfjICUNSYWUWL8555-45-09 03:30:38Yellow *NA*(12/28/2012 22:30:38)[place] HxgqavsWNPISSMWBF7156-42-01 03:30:21None Seen (12/28/2012 22:30:21)[place] EnukvumWLNERCJLSC0894-58-94 03:30:21Performed (12/28/2012 22:30:21)[place] JaeewkuYEDPUHWHAM7851-60-73 03:30:21None Seen (12/28/2012 22:30:21)[place] JmizpmyKFHRDOZLFQ9008-29-44 03:30:210-2 /HPF (12/28/2012 22:30:21)[place] WbmdiodPYFDKWSWKX7681-25-03 03:30:21None Seen (12/28/2012 22:30:21)[facility] HospitalPeopleAdminBLOOD BANK ISFXMCZ5300-84-27 02:00:00Negative (12/28/2012 21:00:00)[place] BkvwjwtSNZAOFBSS2546-06-52 01:56:0084.6[facility] RzjnsydFHZATHOVS2093-93-73 01:56:0037.0[facility] VoaoxhgZDCISLPYX1407-69-57 01:56:00-4[facility] XhlrxhtVZLJPFUSS4778-94-18 01:56:0020[facility] LKOSQAZVW6733-86-57 01:56:0049[facility] QedjbsfSOTXZCVJF0992-82-68 01:56:007.41 [facility] FrnkburNZXAOSHUK4603-79-25 01:56:0031[facility] HermannCHEMISTRY 2012-12-29 01:56:004.4[facility] RmcozfyFSZMVQREQ2671-43-28 01:56:0079[facility] AypjhppHFALUALTO7408-12-63 01:56:000.079[facility] BsoebcuXRMTUVAOS2265-96-04 01:56:0093[facility] ImxnftsKLXWRMFIP0895-77-82 01:56:006[facility]annCHEMISTRY 2012-12-29 01:56:001.emorial AsqfqbqWPLUVRHWD1709-27-45 01:56:98195Rssrxvqf ThtjbzkZLNJMIHOK3896-90-62 01:56:35067Viydwuva CkbkcmxICMCTBXSB4892-28-23 01:56:04752Paqaylwc UwngnziFCALQBSXA1910-94-03 01:56:0021[facility] FNOOWIMWB3071-32-14 01:56:003.[facility]orial MbrjijyXAQFGWMXY0638-63-95 01:56:008.6 [facility] UytjvfrYRDNMIYGN0186-89-09 01:56:0019.1[facility] HermannHEMATOLOGY 2012-12-29 01:56:001.3[facility] QagyoceEJYYKFBWIT7532-93-45 01:56:00 Test Item Value Reference Range Interpretation Comments K-time (test code = K-time) 2.2 min 0.6-2.3 N [place] QyymrzxQISKQNBPQF5864-66-78 01:56:00 Test Item Value Reference Range Interpretation Comments Angle (test code = Angle) 64 degrees 64-80 N [place] JatgydkKWWVAFIMGN7980-11-46 01:56:00 Test Item Value Reference Range Interpretation Comments Max Amp (test code = Max Amp) 58 mm 52-71 N [facility] DcojrnkBBUDDCJMQF3838-80-64 01:56:00 Test Item Value Reference Range Interpretation Comments R-time (test code = R-time) 0.8 min 0.4-0.7 H [facility] VtjjaefIKMWMDLEYM4283-73-79 01:56:00 Test Item Value Reference Range Interpretation Comments Split Point (test code = Split Point) 0.6 min [facility] YungyhrOYFVVNNLOM0198-39-52 01:56:00 Test Item Value Reference Range Interpretation Comments ACT (TEG) (test code = ACT (TEG)) 121 s 86-118 H [facility] HfnozvxOKQMRKTOKW7070-05-60 01:56:006.9[facility] HermannHEMATOLOGY 2012-12-29 01:56:0014.8[facility] VescwknYPXLOIZOVS2592-93-03 01:56:005.05[facility] ZouxdigYUEGCYNQWV9888-40-03 01:56:0044.5[facility] DnxflwgBYEQPUXWLD9554-36-67 01:56:0011.8[facility] LgxlrknGPTUQPLNJT8760-37-02 01:56:009.2[facility] ZYBBUGVOJH1909-86-66 01:56:0033.2[facility] GxsjdalUOCFYJVECN2767-94-59 01:56:00 88.1[facility] HzrlwhtPTKKLFFDXR2344-38-66 01:56:00 Test Item Value Reference Range Interpretation Comments MCH (test code = MCH) 29.3 pg 27.0-31.0 N [facility] PqkunnqVVHDWSUXAD6849-80-62 01:56:26014Tvwgvbwu HermannHEMATOLOGY 2012-12-29 01:56:0012.4[facility] IdljzdtGPBRJPIBHV4956-56-33 01:56:0014.0[facility] KkwixbtSWUSZEFTJJ2763-60-05 01:56:00Normal (12/28/2012 20:56:00)[facility] UTCHIMYZIS8350-86-28 01:56:006.0[facility] GlwnphdMVZBFMTDYE6550-80-38 01:56:00 72.0[facility] BbtmkelESGVTCVCQP3417-41-84 01:56:000.9[facility] HermannHEMATOLOGY 2012-12-29 01:56:001.7[facility] ImajiiyWCIHKUDEFD7598-93-72 01:56:009.2[facility] MrgrtrbGIDPWMNOQW1142-59-75 01:56:008.0[facility] GesyimrDBVSBDXBYX4027-60-03 01:56:000.0[facility] XapqazgSUGNUPZSQC6341-04-66 01:56:00Normal (12/28/2012 20:56:00)[facility]
[2020-09-18 17:04] LABS: Absolute Lymphocytes (CBC) 1.9 K/uL (0.7-4.9); Basophils % 0.8 % (0-1.3); Hematocrit 47.5 % (39.6-49.0); Lymphocytes % 35.8 % (15.3-44.8); MPV 9.2 fL (7.6-11.3); RBC Red Blood Cell Count 5.44 M/uL (4.33-5.43)
[2020-09-18 17:13] LABS: Protime INR 0.91
[2020-09-18 18:28] LABS: ALT/SGPT 19 U/L (12-78); AST/SGOT 16 U/L (15-37); Alkaline Phosphatase 43 U/L (45-117); BUN Blood Urea Nitrogen 8 mg/dL (7-18); Bicarbonate 29 mmol/L (21-32); Bilirubin Direct 0.1 mg/dL (0-0.2); Bilirubin Total 0.7 mg/dL (0.2-1.0); Glucose Level 88 mg/dL (74-106); Potassium 3.9 mmol/L (3.5-5.1); Sodium Level 141 mmol/L (136-145)
--- NOTE | 2020-09-18 19:52 | ER ---
Nurse's Notes [facility] Name: Alex Abbott Age: 30 yrs Sex: Male : 1990 Arrival Date: 09/18/2020 Time: 14:06 Bed 20 Private MD: Diagnosis: Drug abuse counseling and surveillance Presentation: 09/18 14:39 Note no answer at this time, registration staff unaware where pt is. em 14:58 Chief complaint: Patient states: wants to go to rehab, uses meth., last used last em night, pt drowsy in triage. Coronavirus screen: Client denies travel out of the [place] in the last 14 days. Ebola Screen: Patient negative for fever greater than or equal to 101.5 degrees Fahrenheit, and additional compatible Ebola Virus Disease symptoms Patient denies exposure to infectious person. Patient denies travel to an Ebola-affected area in the 21 days before illness onset. No symptoms or risks identified at this time. Initial Sepsis Screen: Does the patient meet any 2 criteria? HR > 90 bpm. No. Patient's initial sepsis screen is negative. Does the patient have a suspected source of infection? No. Patient's initial sepsis screen is negative. Risk Assessment: Do you want to hurt yourself or someone else? Patient reports no desire to harm self or others. Onset of symptoms was September 18, 2020. 14:58 Method Of Arrival: Ambulatory em 14:58 Acuity: ROCIO 3 em Historical: - Allergies: 15:02 lithium; em 15:02 quetiapine fumarate; em 15:02 RISPERIDONE; em 15:02 ziprasidone HCl; em - PMHx: 15:02 ADD/ADHD; Anxiety; Bipolar disorder; Depression; drug overdose; Pneumonia; em Schizophrenia; - PSHx: 15:02 None; em - Immunization history:: Adult Immunizations up to date. - Social history:: Smoking status: Patient reports the use of cigarette tobacco products, smokes one pack cigarettes per day. Screenin:27 Abuse screen: Denies threats or abuse. Denies injuries from another. Nutritional ca1 screening: No deficits noted. Tuberculosis screening: No symptoms or risk factors identified. Fall Risk None identified. Assessment: 16:15 General: Appears in no apparent distress. Behavior is drowsy. Pain: Denies pain. Neuro: ca1 Level of Consciousness is obeys commands, Oriented to person, place, time, situation. Cardiovascular: Heart tones S1 S2 present Capillary refill < 3 seconds Patient's skin is warm and dry. Rhythm is sinus rhythm. Respiratory: Airway is patent Respiratory effort is even, unlabored, Respiratory pattern is regular, symmetrical, Breath sounds are clear bilaterally. GI: Abdomen is flat, non-distended, Bowel sounds present X 4 quads. Abd is soft and non tender X 4 quads. : No signs and/or symptoms were reported regarding the genitourinary system. EENT: No signs and/or symptoms were reported regarding the EENT system. Derm: Skin is intact, is healthy with good turgor, Skin is pink, warm \\T\\ dry. Musculoskeletal: Circulation, motion, and sensation intact. Capillary refill < 3 seconds. 17:05 Reassessment: Patient appears in no apparent distress at this time. No changes from ca1 previously documented assessment. Patient and/or family updated on plan of care and expected duration. Pain level reassessed. 17:48 Reassessment: Patient appears in no apparent distress at this time. No changes from ca1 previously documented assessment. Patient and/or family updated on plan of care and expected duration. Pain level reassessed. 18:25 Reassessment: Patient appears in no apparent distress at this time. No changes from ca1 previously documented assessment. Patient and/or family updated on plan of care and expected duration. Pain level reassessed. 19:49 Reassessment: Patient and/or family updated on plan of care and expected duration. Pain ea level reassessed. Pt resting with eyes closed, respirations even and unlabored, chest expansions even and symmetrical. 19:53 Reassessment:. ea 20:36 Reassessment: spoke to pt's mother who states pt has been is in "full-blown psychosis" bb he thinks people are out to get him he is not acting right and he is not in his right mind. She is concerned because it is the weekend and she is not sure if he will be able to make it through the weekend. 20:45 Reassessment: notified Dr Teague of conversation with pt's mother. Dr Teague to bb reevaluate pt. 21:20 Reassessment: spoke to pt's mother Jewel again and discussed Dr Teague findings, pt to bb be discharged. Instructed mother on [facility] services she verbalized understanding of and agreed to plan of care. 21:27 Reassessment: Patient and/or family updated on plan of care and expected duration. Pain ea level reassessed. Patient is alert, oriented x 3, equal unlabored respirations, skin warm/dry/pink. Discharge instruction given to patient verbalized the understanding of instruction. Vital Signs: 14:58 BP 123 / 73; Pulse 109; Resp 18; Temp 98.0; Pulse Ox 98% on R/A; Weight 54.43 kg; em Height 5 ft. 11 in. (180.34 cm); Pain 0/10; 17:05 BP 115 / 73; Pulse 66; Resp 18 S; Pulse Ox 99% on R/A; ca1 17:48 BP 106 / 73; Pulse 64; Resp 15 S; Pulse Ox 99% on R/A; ca1 18:25 BP 109 / 75; Pulse 71; Resp 15 S; Pulse Ox 98% on R/A; ca1 19:00 BP 109 / 75; Pulse 80; Resp 18; Pulse Ox 98% ; ea 21:28 BP 113 / 84; Pulse 88; Resp 18; Pulse Ox 98% on R/A; ea 14:58 Body Mass Index 16.74 (54.43 kg, 180.34 cm) em ED Course: 14:06 Patient arrived in ED. mr 15:02 Triage completed. em 15:02 Arm band placed on. em 16:12 Maninder Bradshaw PA is PHCP. jr8 16:12 Sb Lundberg MD is Attending Physician. jr8 16:12 Jeny Botello RN is Primary Nurse. ca1 16:27 Patient has correct armband on for positive identification. Bed in low position. Call ca1 light in reach. Side rails up X 1. Pulse ox on. NIBP on. Door closed. Noise minimized. Lights dimmed. Warm blanket given. 16:45 Missed attempt(s): 22 gauge in right antecubital area. Bleeding controlled, band aid ca1 applied, catheter tip intact. 16:52 No provider procedures requiring assistance completed. Initial lab(s) drawn, by me, ca1 sent to lab. Inserted saline lock: 22 gauge in right hand, using aseptic technique. Blood collected. 17:48 Lab(s) recollected, by me, sent to lab. ca1 21:28 IV discontinued, intact, bleeding controlled, No redness/swelling at site. Pressure ea dressing applied. Administered Medications: No medications were administered Outcome: 19:51 Discharge ordered by MD. torres 21:28 Discharge instructions given to patient, Instructed on discharge instructions, follow ea up and referral plans. Demonstrated understanding of instructions. 21:30 Discharged to home ambulatory, with family. ea 21:30 Condition: stable 21:31 Patient left the ED. ea Signatures: Katlyn Hawkins Edgar, RN RN Johnna Levine RN Maninder Vázquez PA PA jr8 Antunez, Elena, RN RN ea Acob, Cheryl, RN RN ca1
--- NOTE | 2020-09-18 19:53 | EDPHYS ---
Physician Documentation [facility] Name: Alex Abbott Age: 30 yrs Sex: Male : 1990 Arrival Date: 09/18/2020 Time: 14:06 Bed 20 Private MD: ED Physician Sb Lundberg HPI: 09/18 17:59 This 30 yrs old Male presents to ER via Ambulatory with complaints of Drug jr8 Withdrawal. 17:59 Patient presents to ED for mental health evaluation. Stated that he has been on jr8 methamphetamine's for some time and feels that his mental health and previous psych disorders are getting worse. Stated that he has been hallucinating. Wants to be psychiatrically evaluated . Severity of symptoms: At their worst the symptoms were moderate in the emergency department the symptoms are unchanged. It is unknown whether or not the patient has had similar symptoms in the past. The patient has not recently seen a physician. Historical: - Allergies: 15:02 lithium; em 15:02 quetiapine fumarate; em 15:02 RISPERIDONE; em 15:02 ziprasidone HCl; em - PMHx: 15:02 ADD/ADHD; Anxiety; Bipolar disorder; Depression; drug overdose; Pneumonia; em Schizophrenia; - PSHx: 15:02 None; em - Immunization history:: Adult Immunizations up to date. - Social history:: Smoking status: Patient reports the use of cigarette tobacco products, smokes one pack cigarettes per day. ROS: 17:59 Eyes: Negative for injury, pain, redness, and discharge, ENT: Negative for injury, jr8 pain, and discharge, Neck: Negative for injury, pain, and swelling, Cardiovascular: Negative for chest pain, palpitations, and edema, Respiratory: Negative for shortness of breath, cough, wheezing, and pleuritic chest pain, Abdomen/GI: Negative for abdominal pain, nausea, vomiting, diarrhea, and constipation, Back: Negative for injury and pain, MS/Extremity: Negative for injury and deformity, Skin: Negative for injury, rash, and discoloration, Neuro: Negative for headache, weakness, numbness, tingling, and seizure. 17:59 Psych: Positive for drug dependence, visual hallucinations. Exam: 17:59 Eyes: Pupils equal round and reactive to light, extra-ocular motions intact. Lids and jr8 lashes normal. Conjunctiva and sclera are non-icteric and not injected. Cornea within normal limits. Periorbital areas with no swelling, redness, or edema. ENT: Nares patent. No nasal discharge, no septal abnormalities noted. Tympanic membranes are normal and external auditory canals are clear. Oropharynx with no redness, swelling, or masses, exudates, or evidence of obstruction, uvula midline. Mucous membranes moist. Neck: Trachea midline, no thyromegaly or masses palpated, and no cervical lymphadenopathy. Supple, full range of motion without nuchal rigidity, or vertebral point tenderness. No Meningismus. Cardiovascular: Regular rate and rhythm with a normal S1 and S2. No gallops, murmurs, or rubs. Normal PMI, no JVD. No pulse deficits. Respiratory: Lungs have equal breath sounds bilaterally, clear to auscultation and percussion. No rales, rhonchi or wheezes noted. No increased work of breathing, no retractions or nasal flaring. Abdomen/GI: Soft, non-tender, with normal bowel sounds. No distension or tympany. No guarding or rebound. No evidence of tenderness throughout. Skin: Warm, dry with normal turgor. Normal color with no rashes, no lesions, and no evidence of cellulitis. MS/ Extremity: Pulses equal, no cyanosis. Neurovascular intact. Full, normal range of motion. Neuro: Awake and alert, GCS 15, oriented to person, place, time, and situation. Cranial nerves II-XII grossly intact. Motor strength 5/5 in all extremities. Sensory grossly intact. 17:59 Constitutional: The patient appears Sleepy in appearance 17:59 Psych: Behavior/mood is cooperative, Affect is calm, Oriented to person, place, time, Patient has no thoughts/intents to harm self or others. Judgement / Insight is normal. Memory is normal. Delusions/hallucinations Stated that he has been seeing prisms and other objects . Vital Signs: 14:58 BP 123 / 73; Pulse 109; Resp 18; Temp 98.0; Pulse Ox 98% on R/A; Weight 54.43 kg; em Height 5 ft. 11 in. (180.34 cm); Pain 0/10; 17:05 BP 115 / 73; Pulse 66; Resp 18 S; Pulse Ox 99% on R/A; ca1 17:48 BP 106 / 73; Pulse 64; Resp 15 S; Pulse Ox 99% on R/A; ca1 18:25 BP 109 / 75; Pulse 71; Resp 15 S; Pulse Ox 98% on R/A; ca1 19:00 BP 109 / 75; Pulse 80; Resp 18; Pulse Ox 98% ; ea 21:28 BP 113 / 84; Pulse 88; Resp 18; Pulse Ox 98% on R/A; ea 14:58 Body Mass Index 16.74 (54.43 kg, 180.34 cm) em MDM: 16:12 Patient medically screened. jr8 19:49 Data reviewed: vital signs, nurses notes, lab test result(s), EKG. Data interpreted: jr8 Pulse oximetry: on room air is 98 %. Interpretation: normal. Counseling: I had a detailed discussion with the patient and/or guardian regarding: the historical points, exam findings, and any diagnostic results supporting the discharge/admit diagnosis, lab results, the need for outpatient follow up, a psychiatrist, to return to the emergency department if symptoms worsen or persist or if there are any questions or concerns that arise at home. ED course: Patient medically stable with normal VS. Discussed case with [facility] as patient wanted to be evaluated by them. [facility] denied formal evaluation as patient is not in acute crisis based on there criteria. This was relayed to the patient and was given further numbers to call to it help desk analyst him in drug rehab and mental health . 09/18 16:28 Order name: Acetaminophen; Complete Time: 18:50 [facility] 09/18 16:28 Order name: Basic Metabolic Panel; Complete Time: 18:50 [facility] 09/18 16:28 Order name: CBC with Diff; Complete Time: 17:21 [facility] 09/18 16:28 Order name: ETOH Level; Complete Time: 18:50 [facility] 09/18 16:28 Order name: Hepatic Function; Complete Time: 18:50 [facility] 09/18 16:28 Order name: PT-INR; Complete Time: 17:21 [facility] 09/18 16:28 Order name: Ptt, Activated; Complete Time: 17:21 09/18 16:28 Order name: Salicylate; Complete Time: 18:56 [facility] 09/18 16:28 Order name: EKG; Complete Time: 16:29 [facility] 09/18 16:28 Order name: EKG - Nurse/Tech; Complete Time: 17:04 8 09/18 16:28 Order name: IV Saline Lock; Complete Time: 16:53 8 09/18 16:28 Order name: Labs collected and sent; Complete Time: 16:53 8 09/18 16:28 Order name: Suicide Screening ([place]); Complete Time: 16:53 8 09/18 17:34 Order name: Labs - recollect needed; Complete Time: 17:48 em1 Administered Medications: No medications were administered Disposition: 09/19 13:18 Co-signature as Attending Physician, Sb Lundberg MD I agree with the assessment and kdr plan of care. Disposition: 09/18/20 19:51 Discharged to Home. Impression: Drug abuse counseling and surveillance. - Condition is Stable. - Discharge Instructions: Psychosis, What You Need To Know About Illegal Drug Use and Dependence, Youth. - Medication Reconciliation Form, Thank You Letter, Antibiotic Education, Prescription Opioid Use form. - Follow up: Private Physician; When: 2 - 3 days; Reason: Recheck today's complaints, Continuance of care, Re-evaluation by your physician. - Problem is new. - Symptoms have improved. Signatures: Dispatcher [employer] EDSb Chávez MD MD [facility] Laz Degroot RN RN Stevo Jean-Baptiste em1 Maninder Bradshaw PA PA jr8 Mila Cheng, RN RN ea Corrections: (The following items were deleted from the chart) 09/18 21:31 19:51 09/18/2020 19:51 Discharged to Home. Impression: Drug abuse counseling and ea surveillance. Condition is Stable. Forms are Medication Reconciliation Form, Thank You Letter, Antibiotic Education, Prescription Opioid Use. Follow up: Private Physician; When: 2 - 3 days; Reason: Recheck today's complaints, Continuance of care, Re-evaluation by your physician. Problem is new. Symptoms have improved. jr8
[2020-09-18 21:39] VITALS: TEMP 98
[2020-09-18 21:43] VITALS: O2SAT 98
[2020-09-18 21:46] VITALS: BP 113/84
== END 2020-09-18 21:31 | disposition home or self-care (01) ==
LOC: ER 14:03
DX: R44.1 Visual hallucinations (principal); Z71.51 Drug abuse counseling and surveillance of drug abuser; F20.9 Schizophrenia, unspecified; F17.210 Nicotine dependence, cigarettes, uncomplicated; Z88.8 Allergy status to other drugs, medicaments and biological substances
CPT/HCPCS: 36415; 80048; 80076; 80320; 80329; 85025; 85610; 85730; 93005; 99284

== ENCOUNTER 2021-03-23 20:17 | Emergency (ER) | payer OTHER ==
[2021-03-23] MEDS ORDERED: KETOROLAC 30 MG/ML INJ ONE (20:56)
[2021-03-23] MEDS ORDERED: HYDROCODONE/APAP 10/325 TAB ONE (20:56)
--- NOTE | 2021-03-23 21:04 | ER ---
Nurse's Notes [facility] Name: Alex Abbott Age: 30 yrs Sex: Male : 1990 Arrival Date: 03/23/2021 Time: 20:20 Bed 15 Private MD: Diagnosis: Dental root caries;Dental caries, unspecified;Acute gingivitis Presentation: 03/23 20:20 Chief complaint: Patient states: Pt arrived EMS for left lower dental pain. Coronavirus [facility] screen: Vaccine status: Patient reports being unvaccinated. Client denies travel out of the [place] in the last 14 days. At this time, the client does not indicate any symptoms associated with coronavirus-19. Ebola Screen: Patient negative for fever greater than or equal to 101.5 degrees Fahrenheit, and additional compatible Ebola Virus Disease symptoms Patient denies exposure to infectious person. Patient denies travel to an Ebola-affected area in the 21 days before illness onset. Initial Sepsis Screen: Does the patient meet any 2 criteria? No. Patient's initial sepsis screen is negative. Does the patient have a suspected source of infection? No. Patient's initial sepsis screen is negative. Risk Assessment: Do you want to hurt yourself or someone else? Patient reports no desire to harm self or others. 20:20 Method Of Arrival: EMS: [place] [id number] 20:20 Acuity: ROCIO 4 [facility] 20:25 Onset of symptoms was March 23, 2021. [facility] Triage Assessment: 20:22 General: Appears in no apparent distress. unkempt, Behavior is calm, cooperative. Pain: [facility] Complains of pain in mouth Pain currently is 10 out of 10 on a pain scale. EENT: Poor dentition noted. Neuro: No deficits noted. Cardiovascular: No deficits noted. Respiratory: No deficits noted. GI: No deficits noted. : No deficits noted. Musculoskeletal: No deficits noted. Historical: - Allergies: 20:22 lithium; [facility] 20:22 quetiapine fumarate; [facility] 20:22 RISPERIDONE; [facility] 20:22 ziprasidone HCl; [facility] - Home Meds: 20:22 Cogentin Oral [Active]; thorazine [Active]; Wellbutrin Oral [Active]; [facility] - PMHx: 20:22 ADD/ADHD; Anxiety; Bipolar disorder; Depression; drug overdose; Pneumonia; 6 Schizophrenia; - PSHx: 20:22 None; [facility] - Immunization history:: Adult Immunizations not up to date, Client reports having NOT received the Covid vaccine. - Social history:: Smoking status: Patient reports the use of cigarette tobacco products, smokes one pack cigarettes per day. Patient uses alcohol, only on a social basis. street drugs, marijuana, Methamphetamine (Meth). - Family history:: not pertinent. Screenin:24 Abuse screen: Denies threats or abuse. Nutritional screening: No deficits noted. [facility] Tuberculosis screening: No symptoms or risk factors identified. Fall Risk None identified. Assessment: 21:25 EENT: Poor dentition noted. Reports pain in mouth. df1 Vital Signs: 20:20 BP 144 / 90; Pulse 81; Resp 18; Temp 98.6(O); Pulse Ox 100% on R/A; Weight 58.97 kg; 6 Height 5 ft. 9 in. (175.26 cm); Pain 10/10; 21:24 BP 142 / 92; Pulse 83; Resp 18; Pulse Ox 99% on R/A; Pain 8/10; df1 20:20 Body Mass Index 19.20 (58.97 kg, 175.26 cm) [facility] [place] Coma Score: 20:56 Eye Response: spontaneous(4). Verbal Response: oriented(5). Motor Response: obeys sherif commands(6). Total: 15. ED Course: 20:20 Patient arrived in ED. [facility] 20:20 Nayeli Coppola RN is Primary Nurse. [facility] 20:21 Roshan Gomez MD is Attending Physician. [facility] 20:22 Triage completed. [facility] 20:22 Arm band placed on right wrist. 6 20:24 Patient has correct armband on for positive identification. Placed in gown. Bed in low [facility] position. Call light in reach. Side rails up X 1. 20:24 No provider procedures requiring assistance completed. [facility] 21:03 Gerhard Arteaga DDS is Referral Physician. [facility] 21:26 Patient did not have IV access during this emergency room visit. df1 Administered Medications: 21:04 Drug: Clindamycin 300 mg Route: PO; df1 21:24 Follow up: Response: No adverse reaction df1 21:04 Drug: Ketorolac 60 mg Route: IM; Site: right gluteus; df1 21:24 Follow up: Response: No adverse reaction df1 21:04 Drug: [place] (HYDROcodone-acetaminophen) 10 mg-325 mg 1 tabs Route: PO; df1 21:24 Follow up: Response: No adverse reaction df1 Outcome: 21:03 Discharge ordered by . sherif 21:25 Discharged to home ambulatory. df1 21:25 Condition: good 21:25 Discharge instructions given to patient, Instructed on discharge instructions, follow up and referral plans. medication usage, Demonstrated understanding of instructions, follow-up care, medications, Prescriptions given X 2. 21:26 Patient left the ED. df1 Signatures: Roshan Gomez MD MD cha Furlich, Dawn df1 Nayeli Coppola RN RN jh6
--- NOTE | 2021-03-23 21:04 | EDPHYS ---
Physician Documentation [facility] Name: Alex Abbott Age: 30 yrs Sex: Male : 1990 Arrival Date: 03/23/2021 Time: 20:20 Bed 15 Private MD: ED Physician Roshan Gomez HPI: 03/23 20:56 This 30 yrs old Male presents to ER via EMS with complaints of left lower sherif dental pain. 20:56 The patient or guardian reports pain, swelling. The complaints affect the lower left sherif cuspid and lower left lateral incisor. 20:56 Context of injury: The problem was sustained at an unknown location. Onset: The sherif symptoms/episode began/occurred 3 day(s) ago. Associated signs and symptoms: The patient has no apparent associated signs or symptoms, Loss of consciousness: This patient did not experience any loss of consciousness. Severity of symptoms: At their worst the symptoms were moderate, in the emergency department the symptoms are unchanged. The patient has experienced similar episodes in the past, several times. Historical: - Allergies: 20:22 lithium; 6 20:22 quetiapine fumarate; 6 20:22 RISPERIDONE; 6 20:22 ziprasidone HCl; 6 - Home Meds: 20:22 Cogentin Oral [Active]; thorazine [Active]; Wellbutrin Oral [Active]; [facility] - PMHx: 20:22 ADD/ADHD; Anxiety; Bipolar disorder; Depression; drug overdose; Pneumonia; 6 Schizophrenia; - PSHx: 20:22 None; [facility] - Immunization history:: Adult Immunizations not up to date, Client reports having NOT received the Covid vaccine. - Social history:: Smoking status: Patient reports the use of cigarette tobacco products, smokes one pack cigarettes per day. Patient uses alcohol, only on a social basis. street drugs, marijuana, Methamphetamine (Meth). - Family history:: not pertinent. ROS: 20:56 Constitutional: Negative for fever, chills, and weight loss, Eyes: Negative for injury, sherif pain, redness, and discharge, Neck: Negative for injury, pain, and swelling, Cardiovascular: Negative for chest pain, palpitations, and edema, Respiratory: Negative for shortness of breath, cough, wheezing, and pleuritic chest pain, Abdomen/GI: Negative for abdominal pain, nausea, vomiting, diarrhea, and constipation, Back: Negative for injury and pain, : Negative for injury, bleeding, discharge, and swelling, MS/Extremity: Negative for injury and deformity, Skin: Negative for injury, rash, and discoloration, Neuro: Negative for headache, weakness, numbness, tingling, and seizure, Psych: Negative for depression, anxiety, suicide ideation, homicidal ideation, and hallucinations, Allergy/Immunology: Negative for hives, rash, and allergies, Endocrine: Negative for neck swelling, polydipsia, polyuria, polyphagia, and marked weight changes, Hematologic/Lymphatic: Negative for swollen nodes, abnormal bleeding, and unusual bruising. 20:56 ENT: Positive for Teeth pain Exam: 20:56 Constitutional: This is a well developed, well nourished patient who is awake, alert, sherif and in no acute distress. Eyes: Pupils equal round and reactive to light, extra-ocular motions intact. Lids and lashes normal. Conjunctiva and sclera are non-icteric and not injected. Cornea within normal limits. Periorbital areas with no swelling, redness, or edema. Neck: Trachea midline, no thyromegaly or masses palpated, and no cervical lymphadenopathy. Supple, full range of motion without nuchal rigidity, or vertebral point tenderness. No Meningismus. Chest/axilla: Normal chest wall appearance and motion. Nontender with no deformity. No lesions are appreciated. Cardiovascular: Regular rate and rhythm with a normal S1 and S2. No gallops, murmurs, or rubs. Normal PMI, no JVD. No pulse deficits. Respiratory: Lungs have equal breath sounds bilaterally, clear to auscultation and percussion. No rales, rhonchi or wheezes noted. No increased work of breathing, no retractions or nasal flaring. Abdomen/GI: Soft, non-tender, with normal bowel sounds. No distension or tympany. No guarding or rebound. No evidence of tenderness throughout. Back: No spinal tenderness. No costovertebral tenderness. Full range of motion. Skin: Warm, dry with normal turgor. Normal color with no rashes, no lesions, and no evidence of cellulitis. MS/ Extremity: Pulses equal, no cyanosis. Neurovascular intact. Full, normal range of motion. Neuro: Awake and alert, GCS 15, oriented to person, place, time, and situation. Cranial nerves II-XII grossly intact. Motor strength 5/5 in all extremities. Sensory grossly intact. Cerebellar exam normal. Normal gait. Psych: Awake, alert, with orientation to person, place and time. Behavior, mood, and affect are within normal limits. 20:56 Head/face: Noted is swelling, tenderness, that is moderate, of the lower left cuspid and lower left lateral incisor. Vital Signs: 20:20 BP 144 / 90; Pulse 81; Resp 18; Temp 98.6(O); Pulse Ox 100% on R/A; Weight 58.97 kg; jh6 Height 5 ft. 9 in. (175.26 cm); Pain 10/10; 21:24 BP 142 / 92; Pulse 83; Resp 18; Pulse Ox 99% on R/A; Pain 8/10; df1 20:20 Body Mass Index 19.20 (58.97 kg, 175.26 cm) jh6 [place] Coma Score: 20:56 Eye Response: spontaneous(4). Verbal Response: oriented(5). Motor Response: obeys sherif commands(6). Total: 15. MDM: 20:21 Patient medically screened. sherif Administered Medications: 21:04 Drug: Clindamycin 300 mg Route: PO; df1 21:24 Follow up: Response: No adverse reaction df1 21:04 Drug: Ketorolac 60 mg Route: IM; Site: right gluteus; df1 21:24 Follow up: Response: No adverse reaction df1 21:04 Drug: [place] (HYDROcodone-acetaminophen) 10 mg-325 mg 1 tabs Route: PO; df1 21:24 Follow up: Response: No adverse reaction df1 Disposition Summary: 03/23/21 21:03 Discharge Ordered Location: Home sherif Problem: new sherif Symptoms: have improved sherif Condition: Stable sherif Diagnosis - Dental root caries sherif - Dental caries, unspecified sherif - Acute gingivitis sherif Followup: sherif - With: Private Physician - When: 2 - 3 days - Reason: Recheck today's complaints, Continuance of care, Re-evaluation by your physician Followup: sherif - With: Gerhard Arteaga DDS - When: 1 - 2 days - Reason: Recheck today's complaints, Re-evaluation by your physician Discharge Instructions: - Discharge Summary Sheet sherif - Dental Caries, Adult sherif - Dental Pain sherif - Dental Pain, [id number] sherif - Diet and Dental Disease sherif - Dental Caries, Adult, [id number] [facility] Forms: - Medication Reconciliation Form [facility] - Thank You Letter [facility] - Antibiotic Education [facility] - Prescription Opioid Use [facility] Prescriptions: - Clindamycin HCl 300 mg Oral Capsule - take 1 capsule by ORAL route every 6 hours for 10 days; 40 capsule; Refills: 0, [facility] Product Selection Permitted - Ibuprofen 600 mg Oral Tablet - take 1 tablet by ORAL route every 6 hours As needed take with food; 20 tablet; [facility] Refills: 0, Product Selection Permitted Signatures: Roshan Gomez MD MD cha Furlich, Dawn df1 Nayeli Coppola RN RN jh6
--- OUTSIDE RECORDS SUMMARY | 2021-03-23 21:18 | XMS REPORT | Continuity of Care Document ---
:1990 Author Organization [facility] t Address [address] [place] [address] Care Team Providers Name Role Phone Unavailable Unavailable Unavailable Payers Payer Name Policy Type Policy Number Effective Date Expiration Date S ource Problems This patient has no known problems. Allergies, Adverse Reactions, Alerts Allergy Allergy Status Severity Reaction(s) Onset Inactive Treating Comm ents Source Name Type Date Date Clinician No Known DA Active U 2018-05 [facility] All[facility]ie 05-28 [facility] 00:00: [facility] 00 [facility] Medications This patient has no known medications. Procedures This patient has no known procedures. Encounters Start End Encounter Admission Attending Care Care Encounter Source Date/Time Date/Time Type Type Clinicians Facility Department ID 2019-12-14 2019-12-14 Emergency E [facility] [id number] 23:20:00 23:20:00 nata peace [facility] Results This patient has no known results.
[2021-03-23 21:31] VITALS: TEMP 98.6
[2021-03-23 21:33] VITALS: BP 142/92; O2SAT 99
== END 2021-03-23 21:26 | disposition home or self-care (01) ==
LOC: ER 20:17
DX: K02.7 Dental root caries (principal); K05.00 Acute gingivitis, plaque induced; F20.9 Schizophrenia, unspecified; F17.210 Nicotine dependence, cigarettes, uncomplicated; Z88.8 Allergy status to other drugs, medicaments and biological substances
CPT/HCPCS: 96372; 99283

== ENCOUNTER 2021-12-14 23:25 | Emergency (ER) | payer OTHER ==
--- OUTSIDE RECORDS SUMMARY | 2021-12-14 23:28 | XMS REPORT | Continuity of Care Document ---
:1990 Author Organization [facility] t Address [address] [place] [address] Care Team Providers Name Role Phone PCP, PATIENT DOES NOT HAVE A Primary Care Physician UnavailKathleen Pulido MD Attending Clinician KATHLEEN MERA Attending Clinician Unavailable Doctor Unassigned, [place] Attending Clinician Unavailable Roshan Harris RN Attending Clinician Unavailable JAGJIT MORALES Attending Clinician Unavailable Payers Payer Name Policy Type Policy Number Effective Date Expiration Date S ource Problems Condition Condition Condition Status Onset Resolution Last Treating Co mments Source Name Details Category Date Date Treatment Clinician Date No known No known Disease Unive rs active active ity of problems problems [facility] Allergies, Adverse Reactions, Alerts Allergy Allergy Status Severity Reaction(s) Onset Inactive Treating Comm ents Source Name Type Date Date Clinician No Known DA Active U 2018-05 [facility] Allergie 05-28 [place] [facility] 00:[facility]: [facility] [place]NOWN Drug Active [facility] ALLERGIE Class ity of S [facility] Social History Social Habit Start Date Stop Date Quantity Comments Source Exposure to Not sure [facility] SARS-CoV-2 (event) Medica l Branch Tobacco use and 2019-04-29 2019-04-29 Never used [facility] exposure 00:00:00 00:00:00 Medical Branch Sex Ass[birth year] [facility] 00:00:00 00:00:00 Medical Branch Smoking Status Start Date Stop Date Source Never smoker [facility] Medications Ordered Filled Start Stop Current Ordering Indication Dosage Frequency Signature Comments Components Source Medication Medication Date Date Medication? Clinician (SIG) Name Name mupirocin 2 2018-05 Yes [id number] Apply to Univers % ointment 2-30 area(s) 3 ity of 00:00: (three) [place] 00 times Medical daily. Branch mupirocin 2 2018-05 Yes [id number] Apply to Univers % ointment 2-30 area(s) 3 ity of 00:00: (three) [place] 00 times Medical daily. Branch mupirocin 2 2018-05 Yes [id number] Apply to Univers % ointment 2-30 area(s) 3 ity of 00:00: (three) [place] 00 times Medical daily. [place] Vital Signs Vital Name Observation Time Observation Value Comments Source Systolic blood 2021-05-30 08:21:00 118 [facility]Hg[facility] Diastolic blood 2021-05-30 08:21:00 79 mm[facility]Hg[facility] 2021-05-30 08:21:00 91 /min [facility] Body temperature 2021-05-30 08:21:00 36.83 [facility] Respiratory rate 2021-05-30 08:21:00 20 /min [facility] Body weight 2021-05-30 08:21:00 56.7 kg [facility] BMI 2021-05-30 08:21:00 18.46 kg/m2 [facility] Oxygen saturation in 2021-05-30 08:21:00 100 /min [facility] Arterial blood by [facility] Pulse oximetry Branch Procedures Procedure Date / Time Performed Performing Clinician [facility] e CONSENT/REFUSAL FOR 2021-05-30 08:08:34 Doctor Unassigned, No [facility] [place] DIAGNOSIS AND Name Medical Branch TREATMENT Encounters Start End Encounter Admission Attending Care Care Encounter Source Date/Time Date/Time Type Type Clinicians Facility Department ID 2021-05-30 2021-05-30 [facility] [id number] Univers 02:35:00 02:50:00 Kathleen CHANEY [id number] ity [facility] [id number] [facility] [phone] [facility] 084 Branch 2021-05-30 2021-05-30 Emergency X EDE [facility] ERT [id number] Univers 02:35:00 02:50:00 KATHLEEN ity [facility] 2021-05-30 2021-05-30 Orders Doctor WILBER [id number] Univers 00:00:00 00:00:00 Only Unassigned, ARAMIS [id number] ity of [place] [facility] [id number] Ward as [phone] [facility] 009 Branch 2021-05-30 2021-05-30 Letter WILBER Harris [id number] Univers 00:00:00 00:00:00 (Out) Roshan SELF [id number] it y of [facility] [id number] Ward as [id number] [facility] 019 Branch 2019-12-14 2019-12-15 Emergency Guru MORALES [facility] [id number] 23:20:00 03:22:00 JAGJIT peace [facility] Results This patient has no known results.
--- NOTE | 2021-12-15 07:31 | EDPHYS ---
Physician Documentation [facility] Name: Alex Abbott Age: 31 yrs Sex: Male : 1990 Arrival Date: 12/14/2021 Time: 23:29 Bed Waiting Private MD: ED Physician Jaziel Hager HPI: 12/15 07:31 This 31 yrs old Male presents to ER via EMS with complaints of Substance abuse. ms3 07:31 The patient presents to the emergency department with a history of substance abuse, ms3 Type: methamphetamines, the amount of abuse is unknown, for years. Onset: The symptoms/episode began/occurred 19 year(s) ago. Past psychiatric history: Prior diagnosis: addiction history, Psychiatric medications include: none. Associated signs and symptoms: Pertinent positives; substance abuse, Pertinent negatives: abdominal pain, hallucinations, headache, homicidal ideation, nausea, palpitations, suicide ideation, tremor, vomiting. Severity of symptoms: At their worst the symptoms were mild in the emergency department the symptoms are unchanged. 07:31 Severity of symptoms: Pain is currently a 0 / 10. Patient states he has been using Meth ms3 since the age of 12 and needs to go [facility] rehab. Patient denies hallucinations, SI, HI. Patient denies nausea, vomiting, shortness of breath. Patient denies alleviating or inciting factors.. Historical: - Allergies: 00:05 lithium; hb 00:05 quetiapine fumarate; hb 00:05 RISPERIDONE; hb 00:05 ziprasidone HCl; hb - PMHx: 00:05 ADD/ADHD; Anxiety; Bipolar disorder; Depression; drug overdose; Pneumonia; hb Schizophrenia; - Immunization history:: Adult Immunizations up to date. - Social history:: Smoking status: Patient reports the use of cigarette tobacco products, smokes one-half pack cigarettes per day. ROS: 07:31 Constitutional: Negative for fever, and chills. Neck: Negative for injury, pain, and ms3 swelling, Cardiovascular: Negative for chest pain, and palpitations. Respiratory: Negative for shortness of breath, cough, wheezing, and pleuritic chest pain, Abdomen/GI: Negative for abdominal pain, nausea, vomiting, diarrhea, and constipation, MS/Extremity: Negative for injury and deformity, Skin: Negative for injury, rash, and discoloration, Neuro: Negative for headache, weakness, numbness, tingling. Psych: Negative for depression, anxiety, suicide ideation, homicidal ideation, and hallucinations. 07:31 All other systems are negative. Exam: 07:31 Constitutional: This is a well developed, well nourished patient who is awake, alert, ms3 and in no acute distress. Head/Face: Normocephalic, atraumatic. Neck: Trachea midline, no cervical lymphadenopathy. Supple, full range of motion without nuchal rigidity, or vertebral point tenderness. No Meningismus. Chest/axilla: Normal chest wall appearance and motion. Nontender with no deformity. Cardiovascular: Regular rate and rhythm with a normal S1 and S2. No gallops, murmurs, or rubs. Normal PMI, no JVD. No pulse deficits. Respiratory: Lungs have equal breath sounds bilaterally, clear to auscultation and percussion. No rales, rhonchi or wheezes noted. No increased work of breathing, no retractions or nasal flaring. Abdomen/GI: Soft, non-tender, with normal bowel sounds. No distension or tympany. No guarding or rebound. No evidence of tenderness throughout. Back: No spinal tenderness. No costovertebral tenderness. Full range of motion. Skin: Warm, dry with normal turgor. Normal color with no rashes, no lesions, and no evidence of cellulitis. MS/ Extremity: Pulses equal, no cyanosis. Neurovascular intact. Full, normal range of motion. Psych: Awake, alert, with orientation to person, place and time. Behavior, mood, and affect are within normal limits. Vital Signs: 00:03 BP 136 / 80; Pulse 96; Resp 16; Temp 97.8; Pulse Ox 100% on R/A; Weight 52.16 kg; hb Height 5 ft. 9 in. (175.26 cm); Pain 0/10; 07:22 BP 126 / 67; Pulse 93; Resp 16; Temp 98.0; Pulse Ox 98% on R/A; iw 00:03 Body Mass Index 16.98 (52.16 kg, 175.26 cm) hb MDM: 07:30 Patient medically screened. ms3 07:31 Data reviewed: vital signs, nurses notes, and as a result, I will discharge patient. ms3 Counseling: I had a detailed discussion with the patient and/or guardian regarding: the historical points, exam findings, and any diagnostic results supporting the discharge/admit diagnosis, the need for outpatient follow up, to return to the emergency department if symptoms worsen or persist or if there are any questions or concerns that arise at home. Special discussion: I discussed with the patient/guardian in detail that at this point there is no indication for admission to the hospital. It is understood, however, that if the symptoms persist or worsen the patient needs to return immediately for re-evaluation. 12/15 07:38 Order name: Diet Regular; Complete Time: 07:41 kc6 Administered Medications: No medications were administered Disposition Summary: 12/15/21 07:30 Discharge Ordered Location: Home ms3 Condition: Stable ms3 Diagnosis - Abuse of other non-psychoactive substances ms3 Followup: ms3 - With: Raphael Yang DO - When: 2 - 3 days - Reason: Recheck today's complaints Discharge Instructions: - Discharge Summary Sheet ms3 - Finding Treatment for Addiction ms3 - Substance Use Disorder ms3 - Supporting Someone With an Addiction ms3 Forms: - Medication Reconciliation Form ms3 - Thank You Letter ms3 - Antibiotic Education ms3 - Prescription Opioid Use ms3 Signatures: Sherrell Ma, RN RN Jaziel Martínez DO DO ms3
--- NOTE | 2021-12-15 07:31 | ER ---
Nurse's Notes [facility] Name: Alex Abbott Age: 31 yrs Sex: Male : 1990 Arrival Date: 12/14/2021 Time: 23:29 Bed Waiting Private MD: Diagnosis: Abuse of other non-psychoactive substances Presentation: 12/15 00:03 Chief complaint: Patient states: " I need to go to [facility] for rehab." Reports hb last meth use was 2 days ago. Coronavirus screen: At this time, the client does not indicate any symptoms associated with coronavirus-19. Ebola Screen: No symptoms or risks identified at this time. Initial Sepsis Screen: Does the patient meet any 2 criteria? No. Patient's initial sepsis screen is negative. Does the patient have a suspected source of infection? No. Patient's initial sepsis screen is negative. Risk Assessment: Do you want to hurt yourself or someone else? Patient reports no desire to harm self or others. Onset of symptoms was December 15, 2021. 00:03 Method Of Arrival: EMS: [facility] hb 00:03 Acuity: ROCIO 3 hb Historical: - Allergies: 00:05 lithium; hb 00:05 quetiapine fumarate; hb 00:05 RISPERIDONE; hb 00:05 ziprasidone HCl; hb - PMHx: 00:05 ADD/ADHD; Anxiety; Bipolar disorder; Depression; drug overdose; Pneumonia; hb Schizophrenia; - Immunization history:: Adult Immunizations up to date. - Social history:: Smoking status: Patient reports the use of cigarette tobacco products, smokes one-half pack cigarettes per day. Screenin:21 Abuse screen: Denies threats or abuse. Denies injuries from another. Nutritional iw screening: No deficits noted. Tuberculosis screening: No symptoms or risk factors identified. Fall Risk None identified. Assessment: 07:20 General: Appears in no apparent distress. Behavior is calm, cooperative. Pain: iw Complains of pain in back, right leg and left leg. Neuro: Level of Consciousness is awake, alert, obeys commands, Oriented to person, place, time, situation, Moves all extremities. Full function. Cardiovascular: Patient's skin is warm and dry. Respiratory: Respiratory effort is even, unlabored, Respiratory pattern is regular, symmetrical. GI: Abdomen is flat, non-distended, Patient currently denies nausea. Derm: Skin is intact, is healthy with good turgor. Musculoskeletal: Range of motion: intact in all extremities. 07:21 Reassessment: pt states he need a mental evaluation and a drug evaluation because he iw uses meth a lot , he last used meth a few days ago. Vital Signs: 00:03 BP 136 / 80; Pulse 96; Resp 16; Temp 97.8; Pulse Ox 100% on R/A; Weight 52.16 kg; hb Height 5 ft. 9 in. (175.26 cm); Pain 0/10; 07:22 BP 126 / 67; Pulse 93; Resp 16; Temp 98.0; Pulse Ox 98% on R/A; iw 00:03 Body Mass Index 16.98 (52.16 kg, 175.26 cm) hb ED Course: 0816 23:29 Patient arrived in ED. bp1 0817 00:05 Triage completed. hb 00:05 Arm band placed on. hb 07:13 Jaziel Hager DO is Attending Physician. ms3 07:22 No provider procedures requiring assistance completed. iw 07:29 Raphael Yang DO is Referral Physician. ms3 07:47 Jailene Austin, RN is Primary Nurse. iw 07:48 Patient did not have IV access during this emergency room visit. iw Administered Medications: No medications were administered Medication: 07:48 VIS not applicable for this client. iw Outcome: 07:30 Discharge ordered by . ms3 07:47 Discharged to home ambulatory. iw 07:47 Condition: good 07:47 Discharge instructions given to patient, Instructed on discharge instructions, follow up and referral plans. Demonstrated understanding of instructions, follow-up care. 07:48 Patient left the ED. iw Signatures: Jailene Austin, VINCENT RN Sherrell Ma RN RN Jaziel Hager DO DO ms3 NikhilChar lamtany bp1
[2021-12-15 08:00] VITALS: BP 126/67; TEMP 98; O2SAT 98
== END 2021-12-15 07:48 | disposition home or self-care (01) ==
LOC: ER 23:25
DX: F55.8 Abuse of other non-psychoactive substances (principal); F31.9 Bipolar disorder, unspecified; F17.210 Nicotine dependence, cigarettes, uncomplicated; Z88.8 Allergy status to other drugs, medicaments and biological substances

== ENCOUNTER 2021-12-15 22:05 | Emergency (ER) | payer OTHER ==
--- OUTSIDE RECORDS SUMMARY | 2021-12-15 22:07 | XMS REPORT | Continuity of Care Document ---
:1990 Author Organization [facility] t Address [address] [place] [address] Care Team Providers Name Role Phone PCP, PATIENT DOES NOT HAVE A Primary Care Physician UnavailMontana Pulido MD Attending Clinician [place] MERA Attending Clinician Unavailable Doctor Unassigned, [place] Attending Clinician Unavailable Roshan Harris RN Attending Clinician Unavailable JAGJIT MORALES Attending Clinician Unavailable Payers Payer Name Policy Type Policy Number Effective Date Expiration Date S ource Problems Condition Condition Condition Status Onset Resolution Last Treating Co mments Source Name Details Category Date Date Treatment Clinician Date No known No known Disease Unive rs active active ity of problems problems [facility] Allergies, Adverse Reactions, Alerts Allergy Allergy Status Severity Reaction(s) Onset Inactive Treating Comm ents Source Name Type Date Date Clinician No Known DA Active U 2018-05 [facility] Allergie 05-28 [place] s 00:00: Health 00 [facility] NO KNOWN Drug Active Univers ALLERGIE Class ity of S [facility] Social History Social Habit Start Date Stop Date Quantity Comments Source Exposure to Not sure [facility] SARS-CoV-2 (event) Medica l Branch Tobacco use and 2019-04-29 2019-04-29 Never used [facility] exposure 00:00:00 00:00:00 Medical Branch Sex Ass[birth year] [facility] 00:00:00 00:00:00 Medical Branch Smoking Status Start Date Stop Date Source Never smoker [facility] Medications Ordered Filled Start Stop Current Ordering Indication Dosage Frequency Signature Comments Components Source Medication Medication Date Date Medication? Clinician (SIG) Name Name mupirocin 2 2018-05 Yes [id number] Apply to Univers % ointment 2-30 area(s) 3 ity of 00:00: (three) [place] 00 times Medical daily. Branch mupirocin 2 2018-05 Yes [id number] Apply to Univers % ointment 2-30 area(s) 3 ity of 00:00: (three) [place] 00 times Medical daily. Branch mupirocin 2 2018-05 Yes [id number] Apply to Univers % ointment 2-30 area(s) 3 ity of 00:00: (three) [place] 00 times Medical daily. [place] Vital Signs Vital Name Observation Time Observation Value Comments Source Systolic blood 2021-05-30 08:21:00 118 [facility] Diastolic blood 2021-05-30 08:21:00 79 [facility] rate 2021-05-30 08:21:00 91 /min [facility] Body temperature 2021-05-30 08:21:00 36.83 [facility] Respiratory rate 2021-05-30 08:21:00 20 /min [facility] Body weight 2021-05-30 08:21:00 56.7 kg [facility] BMI 2021-05-30 08:21:00 18.46 kg/m2 [facility] Oxygen saturation in 2021-05-30 08:21:00 100 /min [facility] Arterial blood by [facility] Pulse oximetry Branch Procedures Procedure Date / Time Performed Performing Clinician [facility] e CONSENT/REFUSAL FOR 2021-05-30 08:08:34 Doctor Unassigned, No Un [facility] DIAGNOSIS AND Name Medical Branch TREATMENT Encounters Start End Encounter Admission Attending Care Care Encounter Source Date/Time Date/Time Type Type Clinicians Facility Department ID 2021-05-30 2021-05-30 Emergency Narcisa [facility] [id number] Univers 02:35:00 02:50:00 [place] CHANEY [id number] ity [id number] [facility] [id number] [facility] mariann 084 Branch 2021-05-30 2021-05-30 Emergency X NARCISA [facility] ERT [id number] Univers 02:35:00 02:50:00 [place] ity [facility] 2021-05-30 2021-05-30 Orders Doctor WILBER [id number] Univers 00:00:00 00:00:00 Only Unassigned, AR[place] [id number] ity of [place] [facility] [id number] Ward as [id number] [facility] 009 Branch 2021-05-30 2021-05-30 Letter WILBER Harris [id number] Univers 00:00:00 00:00:00 (Out) Roshan ARAMIS [id number] it [facility] [id number] Ward as [id number] [facility] 019 Branch 2019-12-14 2019-12-15 Emergency Guru MORALES [facility] [address] 23:20:00 03:22:00 JAGJIT peace [facility] Results This patient has no known results.
[2021-12-15 23:33] LABS: Absolute Lymphocytes (CBC) 1.3 K/uL (0.7-4.9); Hematocrit 39.2 % (39.6-49.0); Lymphocytes % 18.6 % (15.3-44.8); MCV 87.7 fL (80-100); MPV 9.2 fL (7.6-11.3); RBC Red Blood Cell Count 4.47 M/uL (4.33-5.43)
[2021-12-15 23:42] LABS: Protime INR 0.9
[2021-12-16 00:27] LABS: ALT/SGPT 29 U/L (12-78); AST/SGOT 20 U/L (15-37); Albumin 3.7 g/dL (3.4-5.0); Alkaline Phosphatase 74 U/L (45-117); BUN Blood Urea Nitrogen 9 mg/dL (7-18); Bicarbonate 30 mmol/L (21-32); Bilirubin Total 0.2 mg/dL (0.2-1.0); Glomerular Filtration Rate 108 ml/min (=/>90); Glucose Level 72 mg/dL (74-106); Potassium 3.9 mmol/L (3.5-5.1); Protein, Total 6.6 g/dL (6.4-8.2); Sodium Level 139 mmol/L (136-145)
[2021-12-16 00:28] LABS: Bilirubin Direct < 0.1 mg/dL (0-0.2)
[2021-12-16 00:36] LABS: SARS-CoV-2 Antigen Rapid Res Negative (Negative)
[2021-12-16 00:47] LABS: Urine Blood Negative (Negative); Urine Glucose Negative (Negative); Urine Protein Trace (Negative); Urine Specific Gravity >=1.030 (1.005-1.030); Urine pH 6.5 (5.0-7.0)
[2021-12-16 01:26] LABS: Benzodiazepines NEGATIVE (NEGATIVE); Cocaine NEGATIVE (NEGATIVE); Phencyclidine NEGATIVE (NEGATIVE)
[2021-12-16 01:27] LABS: Barbiturates NEGATIVE (NEGATIVE); METHAMPHETAM ND (NEGATIVE); Methadone NEGATIVE (NEGATIVE); Opiates NEGATIVE (NEGATIVE); THC Cannibis NEGATIVE (NEGATIVE)
--- NOTE | 2021-12-16 02:23 | ER ---
Nurse's Notes [facility] Name: Alex Abbott Age: 31 yrs Sex: Male : 1990 Arrival Date: 12/15/2021 Time: 22:11 Bed 14 Private MD: Diagnosis: Schizophrenia, unspecified;Hallucinations, unspecified;Auditory hallucinations Presentation: 12/15 22:46 Coronavirus screen: Vaccine status: Patient reports being unvaccinated. Ebola Screen: kd3 No symptoms or risks identified at this time. Initial Sepsis Screen: Does the patient meet any 2 criteria? No. Patient's initial sepsis screen is negative. Does the patient have a suspected source of infection? No. Patient's initial sepsis screen is negative. Risk Assessment:. Onset of symptoms was December 15, 2021. 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 Risk Assessment: Do you want to hurt yourself or someone else? Patient reports no desire to harm self or others. 22:48 Acuity: ROCIO 3 kd3 Triage Assessment: 22:45 General: Appears in no apparent distress. Behavior is calm, cooperative. Pain: kd3 Complains of pain in back. Historical: - Allergies: 22:47 lithium; kd3 22:47 quetiapine fumarate; kd3 22:47 RISPERIDONE; kd3 22:47 ziprasidone HCl; kd3 - Home Meds: 22:47 Cogentin Oral [Active]; thorazine [Active]; Wellbutrin Oral [Active]; kd3 - PMHx: 22:47 ADD/ADHD; Anxiety; Bipolar disorder; Depression; drug overdose; Pneumonia; kd3 Schizophrenia; - Immunization history:: Adult Immunizations not up to date. - Social history:: Smoking status: Patient reports the use of cigarette tobacco products, smokes one pack cigarettes per day. - Family history:: not pertinent. - Hospitalizations: : No recent hospitalization is reported. Screenin:48 Abuse screen: Denies threats or abuse. Denies injuries from another. Nutritional kd3 screening: No deficits noted. Tuberculosis screening: No symptoms or risk factors identified. Fall Risk None identified. Assessment: 12/16 00:51 Reassessment: Patient appears in no apparent distress at this time. lying in bed ke1 quietly eyes closed. 02:04 Reassessment: Patient on the phone with [facility]. ke1 05:55 Reassessment: Patient appears in no apparent distress at this time. No changes from ha1 previously documented assessment. Patient is alert, oriented x 3, equal unlabored respirations, skin warm/dry/pink. pt. quietly resting at this time. 07:45 Reassessment: Patient and/or family updated on plan of care and expected duration. Pain jh6 level reassessed. Patient is alert, oriented x 3, equal unlabored respirations, skin warm/dry/pink. PT SLEEPING WHEN WALKED INTO ROOM. PT WOKE UP TO TACTILE STIMULI AND WAS ABLE TO SIGN TRANSFER PAPERS. 08:57 General: Pt stating that he is not wanting and medications until we talk to [facility] fruit stuffer. provider speaking with pt. . Psych: 12/15 23:26 Penelope Suicide Severity Screening: In the past month, have you wished you were ke1 or wished you could go to sleep and not wake up? Patient responds "No." "In the past month, have you actually had any thoughts of killing yourself?" Patient responds "no." "In your lifetime, have you ever done anything, started to do anything, or prepared to do anything to end your life?" Patient responds "no.". Subjective: Delusions are. Subjective: Patient's mood is angry, Hallucinations are visual. Objective: Patient is. Objective: Patient is hostile. Interventions: Removed personal items and placed in bag. Patient placed in hospital gown. Safety Checks: Personal items have been removed. Pt has been placed in a hallway bed/chair. No visitors are present at this time. Pt denies substance abuse. Commitment: Patient will be a voluntary commitment. Vital Signs: 22:45 BP 134 / 97; Pulse 89; Resp 17; Temp 98.3(O); Pulse Ox 100% ; Weight 54.43 kg; Height 5 kd3 ft. 9 in. (175.26 cm); Pain 4/10; 22:45 Body Mass Index 17.72 (54.43 kg, 175.26 cm) kd3 ED Course: 22:11 Patient arrived in ED. ja2 22:16 Nikita Stanford MD is Attending Physician. rn 22:48 Patient has correct armband on for positive identification. kd3 22:51 Triage completed. kd3 23:06 Suellen Melendez, RN is Primary Nurse. ke1 23:26 Inserted saline lock: 20 gauge in right antecubital area, using aseptic technique. ke1 12/16 00:24 contacted [facility] Crisis Line to have a screener evaluate the patient. mw2 00:35 SARS RAPID Sent. ke1 02:21 Isaac from [facility] recommended inpatient. mw2 02:28 faxed patient information to all available [facility] facilities. mw2 02:52 nurse to nurse from [facility]. mw2 03:04 nurse to nurse from [facility]. mw2 03:15 nurse to nurse from [facility]. mw2 03:47 nurse to nurse from [facility]. mw2 04:[address] Stanford with Dr. Alanis from [facility]. 2 04:17 administrative approval given by Shannan De La Cruz/ patient has been accepted to [address]/ Dr. Alanis accepted the patient in transfer/patient can't go to facility till after 7 am per patient intake. 07:24 Attending Physician role handed off by Nikita Stanford MD [facility] 07:24 Roshan Gomez MD is Attending Physician. [facility] 08:25 IV discontinued, intact, bleeding controlled, No redness/swelling at site. [facility] 08:56 Arm band placed on left wrist. Patient placed in the treatment room, on a stretcher, on 6 oxygen, on laboratory monitor, on pulse oximetry. 08:56 No provider procedures requiring assistance completed. 6 Administered Medications: No medications were administered Medication: 08:56 VIS not applicable for this client. [facility] Outcome: 02:22 ER care complete, transfer ordered by . rn 08:55 Transferred by ground EMS Note: [place] [id number] 08:55 Condition: stable 08:55 Instructed on the need for transfer. 08:58 Patient left the ED. [facility] Signatures: Roshan Gomez MD MD cha Nieto, Roman, MD MD rn [place], MyKena mw2 Sandrine Singh2 Pamela Castro RN VINCENT kd3 Nayeli Coppola RN RN [facility] Suellen Melendez RN RN ke1 Breanne Isabel RN RN ha1 Corrections: (The following items were deleted from the chart) 02:22 02:21 [facility] recommended inpatient mw2 mw2
--- NOTE | 2021-12-16 02:23 | EDPHYS ---
Physician Documentation [facility] Name: Alex Abbott Age: 31 yrs Sex: Male : 1990 Arrival Date: 12/15/2021 Time: 22:11 Bed 14 Private MD: ED Physician Roshan Gomez HPI: 12/15 23:14 This 31 yrs old Male presents to ER via EMS with complaints of Psych Problem. rn 23:14 The patient presents to the emergency department with anxiety, psychosis, has rn experienced auditory hallucinations, has experienced visual hallucinations. Onset: The symptoms/episode began/occurred at an unknown time. Associated signs and symptoms: Pertinent positives; anxiety, hallucinations, Pertinent negatives: homicidal ideation, suicide ideation. Severity of symptoms: At their worst the symptoms were moderate in the emergency department the symptoms are unchanged. The patient has experienced similar episodes in the past. The patient has been recently seen by a physician: The patient has been recently seen at the [facility] Emergency Department. Pt reports having hallucinations, wants to "be stabilized at [facility]". Reports auditory and visual hallucinations. States wants to quit using meth. Denies using today. Denies suicidal or homicidal ideations.. Historical: - Allergies: 22:47 lithium; kd3 22:47 quetiapine fumarate; kd3 22:47 RISPERIDONE; kd3 22:47 ziprasidone HCl; kd3 - Home Meds: 22:47 Cogentin Oral [Active]; thorazine [Active]; Wellbutrin Oral [Active]; kd3 - PMHx: 22:47 ADD/ADHD; Anxiety; Bipolar disorder; Depression; drug overdose; Pneumonia; kd3 Schizophrenia; - Immunization history:: Adult Immunizations not up to date. - Social history:: Smoking status: Patient reports the use of cigarette tobacco products, smokes one pack cigarettes per day. - Family history:: not pertinent. - Hospitalizations: : No recent hospitalization is reported. ROS: 23:14 Constitutional: Negative for fever, chills, and weight loss, Eyes: Negative for injury, rn pain, redness, and discharge, Neck: Negative for injury, pain, and swelling, Cardiovascular: Negative for chest pain, palpitations, and edema, Respiratory: Negative for shortness of breath, cough, wheezing, and pleuritic chest pain, Abdomen/GI: Negative for abdominal pain, nausea, vomiting, diarrhea, and constipation, Back: Negative for injury and pain, MS/Extremity: Negative for injury and deformity, Skin: Negative for injury, rash, and discoloration, Neuro: Negative for headache, weakness, numbness, tingling, and seizure, Psych: Negative for depression, suicide ideation, homicidal ideation Exam: 23:14 Constitutional: Thin male, responding to visual hallucinations. Head/Face: rn Normocephalic, atraumatic. Eyes: Pupils equal round and reactive to light, extra-ocular motions intact. Cardiovascular: Regular rate and rhythm. No pulse deficits. Respiratory: No increased work of breathing, no retractions or nasal flaring. Skin: Warm, dry MS/ Extremity: Pulses equal, no cyanosis Neuro: Awake and alert, GCS 15 23:40 ECG was reviewed by the Attending Physician. rn Vital Signs: 22:45 BP 134 / 97; Pulse 89; Resp 17; Temp 98.3(O); Pulse Ox 100% ; Weight 54.43 kg; Height 5 kd3 ft. 9 in. (175.26 cm); Pain 4/10; 22:45 Body Mass Index 17.72 (54.43 kg, 175.26 cm) kd3 MDM: 22:17 Patient medically screened. rn 12/16 01:11 ED course: Sean neumann contacted for evaluation, they will send a screener.. rn 02:21 Differential diagnosis: psychosis secondary to non-compliance, drug related psychosis. rn Data reviewed: vital signs, nurses notes, lab test result(s), EKG, and as a result, I will admit patient. Counseling: I had a detailed discussion with the patient and/or guardian regarding: the historical points, exam findings, and any diagnostic results supporting the discharge/admit diagnosis, lab results, the need to transfer to another facility, [facility] does not immediately have the required specialist. ED course: Evaluated by Sean Neumann, recommends inpatient.. 04:09 ED course: Doc-to-doc performed and accepted at [facility]. rn 12/15 22:54 Order name: Acetaminophen; Complete Time: :34 rn 12/15 22:54 Order name: Basic Metabolic Panel; Complete Time: : rn 12/15 22:54 Order name: CBC with Diff; Complete Time: 01:34 rn 12/15 22:54 Order name: ETOH Level; Complete Time: 01:34 rn 12/15 22:54 Order name: Hepatic Function; Complete Time: :34 rn 12/15 22:54 Order name: PT-INR; Complete Time: :34 rn 12/15 22:54 Order name: Ptt, Activated; Complete Time: 01:34 rn 12/15 22:54 Order name: Salicylate; Complete Time: :34 rn 12/15 22:54 Order name: Urine Drug Screen; Complete Time: :34 rn 12/15 22:54 Order name: EKG; Complete Time: 22:55 rn 12/15 22:54 Order name: EKG - Nurse/Tech; Complete Time: 23:40 rn 12/15 22:54 Order name: IV Saline Lock; Complete Time: 23:25 rn 12/15 23:15 Order name: SARS RAPID; Complete Time: :34 mw2 12/16 00:47 Order name: Urine Dipstick-Ancillary; Complete Time: : [facility] 12/15 22:54 Order name: Labs collected and sent; Complete Time: 23:25 rn 12/15 22:54 Order name: Suicide Screening ([place]); Complete Time: 23: rn 12/15 22:54 Order name: Urine Dipstick-Ancillary (obtain specimen); Complete Time: 00:52 rn EC/17 23:40 Rate is 77 beats/min. Rhythm is regular. QRS [place] is Normal. IA interval is normal. QRS rn interval is normal. QT interval is normal. No Q waves. T waves are Normal. No ST changes noted. Clinical impression: NSR w/ Non-specific ST/T Changes. Interpreted by me. Reviewed by me. Administered Medications: No medications were administered Disposition Summary: 12/16/21 02:22 Transfer Ordered Transfer Location: [facility] Facility rn Reason: Higher level of care rn Condition: Stable rn Problem: an ongoing problem rn Symptoms: are unchanged rn Accepting Physician: / [facility] [place] [place](12/16/21 08:58) jh6 Diagnosis - Schizophrenia, unspecified rn - Hallucinations, unspecified rn - Auditory hallucinations rn Forms: - Medication Reconciliation Form rn - SBAR form rn Signatures: Dispatcher [employer] EDNikita Tate MD MD rn Herrera, Deanna [facility] Pamela Castro RN RN kd3 Nayeli Coppola RN RN jh6 Corrections: (The following items were deleted from the chart) 12/16 07:43 02:22 Dr. garza dh3 08:58 07:43 / [facility] jh6
[2021-12-16 09:12] VITALS: BP 134/97; TEMP 98.3; O2SAT 100
--- NOTE | 2021-12-16 14:28 | EKG ---
Test Date: 2021-12-15 Test Time: 23:39:34 Educational Psychology Professor: BERNARDA MEASUREMENT RESULTS: Intervals: Rate: 77 MI: 136 QRSD: 100 QT: 382 QTc: 432 Alexander: P: 75 MI: 136 QRS: 68 T: 13 INTERPRETIVE STATEMENTS: Normal sinus rhythm Incomplete right bundle branch block Borderline ECG Compared to ECG 09/18/2020 17:05:35 Myocardial infarct finding no longer present ST (T wave) deviation no longer present Possible ischemia no longer present Electronically Signed On 12-16-21 14:27:31 CDT by Valentin Asher
== END 2021-12-16 08:58 ==
LOC: ER 22:05
DX: F20.9 Schizophrenia, unspecified (principal); F17.210 Nicotine dependence, cigarettes, uncomplicated; Z88.8 Allergy status to other drugs, medicaments and biological substances
CPT/HCPCS: 36415; 80048; 80076; 80307; 80320; 80329; 81003; 85025; 85610; 85730; 87811; 93005

== ENCOUNTER 2022-04-23 12:53 | Emergency (ER) | payer OTHER ==
--- OUTSIDE RECORDS SUMMARY | 2022-04-23 13:38 | XMS REPORT | Continuity of Care Document ---
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 date: 04/12/18 21:26:00 [employer], Stop date: 04/12/18 21:26:00 [employer] Keppra 2017-05 No 1,000 mg, Memori a 2-14 Route: l 03:26: IVPB, [place] 00 ONCE, Dosing Weight 54.091, kg, Start date: 04/12/18 21:26:00 [employer], Stop date: 04/12/18 21:26:00 [employer] acetaminoph 2017-05 No Notes: Do M emoria en-codeine 2-14 not exceed l #3 02:03: 4gm/day of [place] 00 acetaminop hen. (Same as: Tylenol with Codeine # 3) acetaminoph 2017-05 No Notes: Do M emoria en-codeine 2-14 not exceed l #3 02:03: 4gm/day of [place] acetaminop hen. (Same as: Tylenol with Codeine # 3) acetaminoph 2017-05 No Notes: Do M emoria en-codeine 2-14 not exceed l #3 02:03: 4gm/day of [place] 00 acetaminop hen. (Same as: Tylenol with Codeine # 3) Sodium 2017-05 No 1,000 mL, Memori a Chloride 2-14 Infuse l 0.9% 00:47: Over: 1 [place] (Bolus) IV 00 hr, Route: IV, ONCE, Priority: STAT, Dosing Weight 54.091 kg, Start date: 04/12/18 18:47:00 [employer], Stop date: 04/12/18 18:47:00 [employer] Sodium 2018-1 No 1,000 mL, Mem[facility] a Chloride 2-14 Infuse l 0.9% 00:47: Over: 1 [place] (Bolus) IV 00 hr, Route: IV, ONCE, Priority: STAT, Dosing Weight 54.091 kg, Start date: 04/12/18 18:47:00 [employer], Stop date: 04/12/18 18:47:00 [employer] Sodium 2018- No 1,000 mL, Mem[facility] a Chloride 2-14 Infuse l 0.9% 00:47: Over: 1 [place] (Bolus) IV 00 hr, Route: IV, ONCE, Priority: STAT, Dosing Weight 54.091 kg, Start date: 04/12/18 18:47:00 [employer], Stop date: 04/12/18 18:47:00 [employer] Ibuprofen 2017-0 No 600 mg, Memor ia 05-01 Route: PO, l 05:32: Drug form: [place] 00 TAB, ONCE, Dosing Weight 54.545, kg, Priority: STAT, Start date: 04/30/16 23:32:00 [employer], Stop date: 04/30/16 23:32:00 [employer] Ibuprofen 2017-0 No 600 mg, Memor ia 1-01 Route: PO, l 05:32: Drug form: [place] 00 TAB, ONCE, Dosing Weight 54.545, kg, Priority: STAT, Start date: 04/30/16 23:32:00 [employer], Stop date: 04/30/16 23:32:00 [employer] Ibuprofen 2017-0 No 600 mg, Memor ia 1- Route: PO, l 05:32: Drug form: [place] 00 TAB, ONCE, Dosing Weight 54.545, kg, Priority: STAT, Start date: 04/30/16 23:32:00 [employer], Stop date: 04/30/16 23:32:00 [employer] Sodium 2017-0 No 1,000 mL, Memori a Chloride 1-01 1,000 l 0.154 04:38: ml/hr, [place] MEQ/ML 00 Infuse Injectable Over: 1 Solution hr, Route: IV, 1,000, Drug form: INJ, ONCE, Priority: STAT, Dosing Weight 54.545 kg, Start date: 04/30/16 22:38:00 [employer], Duration: 1 doses or times, Stop date: 04/30/16 22:38:00 [employer] Sodium 2017-0 No 1,000 mL, Mem[facility] a Chloride 1-01 1,000 l 0.154 04:38: ml/hr, [place] MEQ/ML 00 Infuse Injectable Over: 1 Solution hr, Route: IV, 1,000, Drug form: INJ, ONCE, Priority: STAT, Dosing Weight 54.545 kg, Start date: 04/30/16 22:38:00 [employer], Duration: 1 doses or times, Stop date: 04/30/16 22:38:00 [employer] Sodium 2017-0 No 1,000 mL, [facility] a Chloride 1-01 1,000 l 0.154 04:38: ml/hr, [place] MEQ/ML 00 Infuse Injectable Over: 1 Solution hr, Route: IV, 1,000, Drug form: INJ, ONCE, Priority: STAT, Dosing Weight 54.545 kg, Start date: 04/30/16 22:38:00 [employer], Duration: 1 doses or times, Stop date: 04/30/16 22:38:00 [employer] Sodium 2017-0 No 25 mL, [facility] Chloride 1- Route: IV, l 0.9% IV 02:29: Start [place] date: 04/30/16 20:29:00 [employer], Duration: 30 day, Stop date: 05/30/16 20:28:00 [employer], PRN Line Flush BD Normal 2017-0 No Notes: Memori a Saline - (Same as: l Flush 02:29: BD [place] Posiflush) Sodium 2016-0 No 25 mL, [facility] Chloride 05-01 Route: IV, l 0.9% IV 02:29: Start [place] 00 date: 04/30/16 20:29:00 [employer], Duration: 30 day, Stop date: 05/30/16 20:28:00 [employer], PRN Line Flush BD Normal 2016-0 No Notes: Memori a Saline - (Same as: l Flush 02:29: BD [place] Posiflush) Sodium 2017-0 No 25 mL, [facility] Chloride 05-01 Route: IV, l 0.9% IV 02:29: Start [place] 00 date: 04/30/16 20:29:00 [employer], Duration: 30 day, Stop date: 05/30/16 20:28:00 [employer], PRN Line Flush BD Normal 2016-0 No Notes: Memori a Saline - (Same as: l Flush 02:29: BD [place] Posiflush) Sodium 2017-0 No 1,000 mL, Memori a Chloride - 1,000 l 0.154 02:19: ml/hr, [place] MEQ/ML 00 Infuse Injectable Over: 1 Solution hr, Route: IV, 1,000, Drug form: INJ, ONCE, Priority: STAT, Dosing Weight 54.545 kg, Start date: 04/30/16 20:19:00 [employer], Duration: 1 doses or times, Stop date: 04/30/16 20:19:00 [employer] Sodium 2017-0 No 1,000 mL, Memori a Chloride - 1,000 l 0.154 02:19: ml/hr, [place] MEQ/ML 00 Infuse Injectable Over: 1 Solution hr, Route: IV, 1,000, Drug form: INJ, ONCE, Priority: STAT, Dosing Weight 54.545 kg, Start date: 04/30/16 20:19:00 [employer], Duration: 1 doses or times, Stop date: 04/30/16 20:19:00 [employer] Sodium 2017-0 No 1,000 mL, Mem[facility] a Chloride -01 1,000 l 0.154 02:19: ml/hr, [place] MEQ/ML 00 Infuse Injectable Over: 1 Solution hr, Route: IV, 1,000, Drug form: INJ, ONCE, Priority: STAT, Dosing Weight 54.545 kg, Start date: 04/30/16 20:19:00 [employer], Duration: 1 doses or times, Stop date: 04/30/16 20:19:00 [employer] tramadol 2015-05 Yes 50 mg = 1 [...] 7 day, # 28 cap, 0 Refill(s) tramadol 2015-05 Yes 50 mg = 1 [...] 7 day, # 28 cap, 0 Refill(s) tramadol 2015-05 Yes 50 mg = 1 [...] 0.9% IV 11:21: Start date: 04/30/16 5:21:00 [employer], Duration: 30 day, Stop date: 05/30/16 5:20:00 [employer], PRN Line Flush BD Normal 2015-05 No Notes: Memori a Saline 2-31 (Same as: l Flush 11:21: BD Posiflush) Sodium 2015-05 No 25 mL, [facility] Chloride 2- Route: IV, l 0.9% IV 11:21: Start date: 04/30/16 5:21:00 [employer], Duration: 30 day, Stop date: 05/30/16 5:20:00 [employer], PRN Line Flush BD Normal 2015-05 No Notes: Memori a Saline 2-31 (Same as: l Flush 11:21: BD Posiflush) Sodium 2015-05 No 25 mL, [facility] Chloride 2-31 Route: IV, l 0.9% IV 11:21: Start date: 04/30/16 5:21:00 [employer], Duration: 30 day, Stop date: 05/30/16 5:20:00 [employer], PRN Line Flush BD Normal 2015-05 No Notes: Memori a Saline 2-31 (Same as: l Flush 11:21: BD [place] Posiflush) Motrin 2015- No 800 mg, 1 Memori a 2-31 tab, l 11:19: Route: PO, [place] 00 Drug form: TAB, ONCE, Dosing Weight 54.545, kg, Priority: STAT, Start date: 04/30/16 5:19:00 [employer], Stop date: 04/30/16 5:19:00 [employer] Motrin 2015-05 No 800 mg, 1 Memori a 2-31 tab, l 11:19: Route: PO, Drug form: TAB, ONCE, Dosing Weight 54.545, kg, Priority: STAT, Start date: 04/30/16 5:19:00 [employer], Stop date: 04/30/16 5:19:00 [employer] Motrin 2015-05 No 800 mg, 1 Memori a 2-31 tab, l 11:19: Route: PO, Drug form: TAB, ONCE, Dosing Weight 54.545, kg, Priority: STAT, Start date: 04/30/16 5:19:00 [employer], Stop date: 04/30/16 5:19:00 [employer] Sodium 2015-05 No 25 mL, [facility] Chloride 2-31 Route: IV, l 0.9% IV 11:07: Start date: 04/30/16 5:07:00 [employer], Duration: 30 day, Stop date: 05/30/16 5:06:00 [employer]ER, PRN Line Flush BD Normal 2015-05 No Notes: Memori a Saline 2-31 (Same as: l Flush 11:07: BD [place] Posiflush) Sodium 2015-05 No 25 mL, [facility] Chloride 2-31 Route: IV, l 0.9% IV 11:07: Start date: 04/30/16 5:07:00 [employer], Duration: 30 day, Stop date: 05/30/16 5:06:00 [employer], PRN Line Flush BD Normal 2015-05 No Notes: Memori a Saline 2-31 (Same as: l Flush 11:07: BD [place] 00 Posiflush) Sodium 2015-05 No 25 mL, [facility] Chloride 2-31 Route: IV, l 0.9% IV 11:07: Start [place] 00 date: 04/30/16 5:07:00 [employer], Duration: 30 day, Stop date: 05/30/16 5:06:00 [employer]ER, PRN Line Flush BD Normal 2015-05 No Notes: Mem[facility] a Saline 2-31 (Same as: l Flush 11:07: BD [place] 00 Posiflush) Sodium 2015-05 No 1,000 mL, Mem[facility] a Chloride 2-31 1,000 l 0.154 11:01: ml/hr, [place] MEQ/ML 00 Infuse Injectable Over: 1 Solution hr, Route: IV, 1,000, Drug form: INJ, ONCE, Priority: STAT, Dosing Weight 54.545 kg, Start date: 04/30/16 5:01:00 [employer], Duration: 1 doses or times, Stop date: 04/30/16 5:01:00 [employer] Ketorolac 2015-05 No 4 days Memor ia 2-31 l 11:01: MEDICATION [place] 00 WASTE Product Size: 30 mg Product Wasted: ___ mg Compazine 2015-05 No Notes: Memori a 2-31 (Same as: l 11:01: Compazine) [place] 00 Benadryl 2015-05 No Notes: Memoria 2-31 (Same as: l 11:: Benadryl) [place] 00 Sodium 2015-05 No 1,000 mL, Memori a Chloride 2-31 1,000 l 0.154 11:01: ml/hr, [place] MEQ/ML 00 Infuse Injectable Over: 1 Solution hr, Route: IV, 1,000, Drug form: INJ, ONCE, Priority: STAT, Dosing Weight 54.545 kg, Start date: 04/30/16 5:01:00 [employer], Duration: 1 doses or times, Stop date: 04/30/16 5:01:00 [employer] Ketorolac 2015-05 No 4 days Memor ia 2-31 l 11:01: MEDICATION [place] 00 WASTE Product Size: 30 mg Product Wasted: ___ mg Compazine 2015-05 No Notes: Memori a 2-31 (Same as: l 11:01: Compazine) [place] Benadryl 2015-05 No Notes: [facility] 2-31 (Same as: l 11:01: Benadryl) [place] Ketorolac 2015-05 No 4 days Memor ia l 11:01: MEDICATION [place] WASTE Product Size: 30 mg Product Wasted: ___ mg Compazine 2015-05 No Notes: Memori a - (Same as: l 11:01: Compazine) [place] Benadryl 2015-05 No Notes: Memoria (Same as: l 11:01: Benadryl) [place] 00 Sodium 2015-05 No 1,000 mL, Memori a Chloride 1,000 l 0.154 11:01: ml/hr, [place] MEQ/ML 00 Infuse Injectable Over: 1 Solution hr, Route: IV, 1,000, Drug form: INJ, ONCE, Priority: STAT, Dosing Weight 54.545 kg, Start date: 04/30/16 5:01:00 [employer], Duration: 1 doses or times, Stop date: 04/30/16 5:01:00 [employer] Dexamethaso 2015-05 No Notes: Magdaleno pilo ne 2-08 Concentrat l 06:19: ion: [place] 00 4mg/ml Dexamethaso 2015-05 No Notes: Magdaleno pilo ne 2-08 Concentrat l 06:19: ion: [place] 00 4mg/ml Dexamethaso 2015-05 No Notes: Magdal[place] pilo ne 08 Concentrat l 06:19: ion: [place] 00 4mg/ml Motrin 2015-05 No Notes: Memoria 2-08 (Same as: l 01:50: Motrin) [place] 00 "Do Not Crush" Take with food. sodium 2015-05 No 1,000 mL, Memori a chloride 06-08 Rate: l 0.9% 1000 01:50: 1,000 [place] ml INJ 00 ml/hr, 1,000 mL Infuse over: 1 hr, Route: IV, Dosing Weight 50 kg, Total Volume: 1,000, Start date: 04/06/16 19:50:00 [employer], Duration: 1 doses or times, Stop date: 04/06/16 20:49:00 [employer]ER, Bolus Dose Motrin 2015-05 No Notes: Memoria 2-08 (Same as: l 01:50: Motrin) [place] 00 "Do Not Crush" Take with food. sodium 2015-05 No 1,000 mL, Memori a chloride 2-08 Rate: l 0.9% 1000 01:50: 1,000 [place] ml INJ 00 ml/hr, 1,000 mL Infuse over: 1 hr, Route: IV, Dosing Weight 50 kg, Total Volume: 1,000, Start date: 04/06/16 19:50:00 [employer], Duration: 1 doses or times, Stop date: 04/06/16 20:49:00 [employer]ER, Bolus Dose Motrin 2015-05 No Notes: [facility] 2-08 (Same as: l 01:50: Motrin) [place] 00 "Do Not Crush" Take with food. sodium 2015-05 No 1,000 mL, Memori a chloride 2-08 Rate: l 0.9% 1000 01:50: 1,000 [place] ml INJ 00 ml/hr, 1,000 mL Infuse over: 1 hr, Route: IV, Dosing Weight 50 kg, Total Volume: 1,000, Start date: 04/06/16 19:50:00 [employer], Duration: 1 doses or times, Stop date: 04/06/16 20:49:00 [employer]ER, Bolus Dose Acetaminoph No Notes: Do M emoria en 01-13 not exceed l 06:17: 4 gm/day. [place] 00 (Same as: Tylenol) Acetaminoph No Notes: Do M emoria en 01-13 not exceed l 06:17: 4 gm/day. [place] 00 (Same as: Tylenol) Acetaminoph No Notes: Do M emoria en 01-13 not exceed l 06:17: 4 gm/day. [place] 00 (Same as: Tylenol) Epinephrine 0 No 1 ml, Memor ia 0.01 MG/ML 01-13 Route: l / Lidocaine 03:09: SUB-Q, Herm boaz Hydrochlori 00 Drug Form: de 10 MG/ML SOLN, Injectable Dosing Solution Weight 50, kg, ONCE, STAT, Start date: 01/13/16 22:09:00 CDT, Stop date: 01/13/16 22:09:00 CDT Epinephrine 0 No 1 ml, Memor ia 0.01 MG/ML 01-13 Route: l / Lidocaine 03:09: SUB-Q, Herm boaz Hydrochlori 00 Drug Form: de 10 MG/ML SOLN, Injectable Dosing Solution Weight 50, kg, ONCE, STAT, Start date: 01/13/16 22:09:00 CDT, Stop date: 01/13/16 22:09:00 CDT Epinephrine 2016-0 No 1 ml, Mem[facility] ia 0.01 MG/ML 01-13 Route: l / Lidocaine 03:09: SUB-Q, Herm boaz Hydrochlori 00 Drug Form: de 10 MG/ML SOLN, Injectable Dosing Solution Weight 50, kg, ONCE, STAT, Start date: 01/13/16 22:09:00 CDT, Stop date: 01/13/16 22:09:00 CDT benztropine 2013- Yes Psychosis 1mg Take 2 [place] (COGENTIN) 5-01 tablets by [facility] 0.5 mg 00:00: mouth 2 tablet 00 times daily as needed for Other (EPS). gabapentin Yes Amphetamine 100mg Q.5D Take 1 [place] (NEURONTIN) 5-01 dependence capsule by Health 100 mg 00:00: mouth 2 capsule 00 times daily. gabapentin Yes Amphetamine 300mg Take 1 [place] (NEURONTIN) 5-01 dependence capsule by Health 300 mg 00:00: mouth at capsule 00 bedtime nightly. paliperidon Yes Psychosis 9mg Take 1 [place] e (INVEGA) 5-01 tablet by [facility] 9 mg 00:00: mouth extended 00 every release morning. tablet traZODone Yes Psychosis 100mg Take 1 [place] (DESYREL) 5-01 tablet by [facility] 100 mg 00:00: mouth tablet 00 nightly at bedtime as needed for Sleep. benztropine Yes Psychosis 1mg Take 2 [place] (COGENTIN) 5-01 tablets by [facility] 0.5 mg 00:00: mouth 2 tablet 00 times daily as needed for Other (EPS). gabapentin 2013- Yes Amphetamine 100mg Q.5D Take 1 [place] (NEURONTIN) 5-01 dependence capsule by Health 100 mg 00:00: mouth 2 capsule 00 times daily. gabapentin 2013- Yes Amphetamine 300mg Take 1 [place] (NEURONTIN) 5-01 dependence capsule by Health 300 mg 00:00: mouth at capsule 00 bedtime nightly. paliperidon Yes Psychosis 9mg Take 1 [place] e (INVEGA) 5-01 tablet by [facility] 9 mg 00:00: mouth extended 00 every release morning. tablet traZODone Yes Psychosis 100mg Take 1 [place] (DESYREL) 5-01 tablet by [facility] 100 mg 00:00: mouth tablet 00 nightly at bedtime as needed for Sleep. benztropine Yes Psychosis 1mg Take 2 [place] (COGENTIN) 5-01 tablets by [facility] lt 0.5 mg 00:00: mouth 2 tablet 00 times daily as needed for Other (EPS). gabapentin Yes Amphetamine 100mg Q.5D Take 1 [place] (NEURONTIN) 5- dependence capsule by Health 100 mg 00:00: mouth 2 capsule 00 times daily. gabapentin Yes Amphetamine 300mg Take 1 [place] (NEURONTIN) 5- dependence capsule by Health 300 mg 00:00: mouth at capsule 00 bedtime nightly. paliperidon Yes Psychosis 9mg Take 1 [place] e (INVEGA) 5-01 tablet by [facility] 9 mg 00:00: mouth extended 00 every release morning. tablet traZODone Yes Psychosis 100mg Take 1 [place] (DESYREL) 5-01 tablet by [facility] 100 mg 00:00: mouth tablet 00 nightly at bedtime as needed for Sleep. benztropine 2021- No Psychosis 1mg Take 2 [place] (COGENTIN) 5-05 11-14 tablets by [facility] 0.5 mg 00:00: 00:00 mouth 2 tablet 00 :00 times daily as needed for Other (EPS). gabapentin 2021- No Amphetamine 100mg Q.5D Take 1 [place] (NEURONTIN) 08-29 dependence capsule by Health 100 mg 00:00: 00:00 mouth 2 capsule 00 :00 times daily. gabapentin 2021- No Amphetamine 300mg Take 1 [place] (NEURONTIN) -03-14 dependence capsule by Health 300 mg 00:00: 00:00 mouth at capsule 00 :00 bedtime nightly. paliperidon 2021- No Psychosis 9mg Take 1 [place] e (INVEGA) -03-14 tablet by [facility] lt 9 mg 00:00: 00:00 mouth extended 00 :00 every release morning. tablet traZODone 2021- No Psychosis 100mg Take 1 [place] (DESYREL) 08-2914 tablet by [facility] 100 mg 00:00: 00:00 mouth tablet 00 :00 nightly at bedtime as needed for Sleep. Keflex 750 Yes Dejon 750 mg, 1 Me moria mg oral 12-31 Chibueze cap, PO, l capsule 01:30: Osuagwu Q12H, 10 Her hung 08 cap, Substituti on Allowed Keflex 750 Yes Dejon 750 mg, 1 Me moria mg oral 12-31 Chibueze cap, PO, l capsule 01:30: [place]su[place] Q12H, 10 Her hung 08 cap, Substituti on Allowed Keflex 750 Yes Dejon 750 mg, 1 Me moria mg oral 12-31 Chibueze cap, PO, l capsule 01:30: Osuagwu Q12H, 10 Her hung 08 cap, Substituti on Allowed diazepam 5 Yes Leona H 5 mg, 1 Me moria mg oral 12-30 Khraish tab, PO, l tablet 17:36: Daily, 10 Abdiaziz n 10 tab, Substituti on Allowed, TAB diazepam 5 Yes Leona H 5 mg, 1 Me moria mg oral 12-30 Khraish tab, PO, l tablet 17:36: Daily, 10 Abdiaziz n 10 tab, Substituti on Allowed, TAB diazepam 5 Yes Leona H 5 mg, 1 Me moria mg oral 12-30 Khraish tab, PO, l tablet 17:36: Daily, 10 Abdiaziz n 10 tab, Substituti on Allowed, TAB tramadol 50 Yes Leona H 50 mg, 1 Memoria mg oral 12-30 Khraish tab, PO, l tablet 17:36: Q4H, PRN, Abdiaziz n 02 20 tab, as needed for pain, Substituti on Allowed, TAB tramadol 50 Yes Leona H 50 mg, 1 Memoria mg oral 12-30 Khraish tab, PO, l tablet 17:36: Q4H, PRN, Abdiaziz n 02 20 tab, as needed for pain, Substituti on Allowed, TAB tramadol 50 Yes [...] needed for itching, Substituti on Allowed, TAB hydrOXYzine Yes Leona H 25 mg, 1 Memoria hydrochlori 12-30 Khraish tab, PO, l de 25 mg 17:35: QID, PRN, Herm boaz oral tablet 58 30 tab, as needed for itching, Substituti on Allowed, TAB hydrOXYzine Yes Leona H 25 mg, 1 Memoria hydrochlori 12-30 Khraish tab, PO, l de 25 mg 17:35: QID, PRN, Herm boaz oral tablet 58 30 tab, as needed for itching, Substituti on Allowed, TAB [place] Yes Leona H 1 tab, PO, Magdaleno pilo 10/325 oral 12-30 Khraish Q6H, 20 l tablet 17:35: [place] grigsby Substituti on Allowed, Maintenanc e, TAB [place] Yes Leona H 1 tab, PO, Magdaleno pilo 10/325 oral 12-30 Khraish Q6H, 20 l tablet 17:35: [place] grigsby Substituti on Allowed, Maintenanc e, TAB [place] Yes Leona H 1 tab, PO, Magdaleno pilo 10/325 oral 12-30 Khraish Q6H, 20 l tablet 17:35: [place] 52 Substituti on Allowed, Maintenanc e, TAB tramadol 50 No Leona H 50 mg, 1 Memoria mg oral 12-30 Khraish tab, l tablet 13:44: Route: PO, Karley nn 00 Drug form: TAB, Q4H, Dosing Weight 54.545, kg, PRN as needed for pain, Start date: 12/30/12 8:44:00, Duration: 30 day, Stop date: 01/29/13 8:43:00 hydrOXYzine 0 No Leona H 25 mg, 1 Memoria hydrochlori - Khraish tab, l de 25 mg 13:44: Route: PO, Her hung oral tablet 00 Drug form: TAB, QID, Dosing Weight 54.545, kg, PRN as needed for itching, Start date: 12/30/12 8:44:00, Duration: 30 day, Stop date: 01/29/13 8:43:00 tramadol 50 2012-0 No Leona H 50 mg, 1 Memoria [...] Duration: 30 day, Stop date: 01/29/13 8:43:00 tramadol 50 0 No Leona H 50 mg, 1 Memoria mg oral 12-30 Khraish tab, l tablet 13:44: Route: PO, Karley nn 00 Drug form: TAB, Q4H, Dosing Weight 54.545, kg, PRN as needed for pain, Start date: 12/30/12 8:44:00, Duration: 30 day, Stop date: 01/29/13 8:43:00 hydrOXYzine 0 No Leona H 25 mg, 1 Memoria hydrochlori - Khraish tab, l de 25 mg 13:44: Route: PO, Her hung oral tablet 00 Drug form: TAB, QID, Dosing Weight 54.545, kg, PRN as needed for itching, Start date: 12/30/12 8:44:00, Duration: 30 day, Stop date: 01/29/13 8:43:00 cefazolin 2012-0 No Lily 1 gm, Memor ia 12-30 [place] Route: l 06:00: IVPB, Drug [place] 00 form: PDR/INJ, ABXQ8H, Dosing Weight 54.545, kg, Start date: 12/30/12 1:00:00, Duration: 2 day, Stop date: 12/31/12 17:00:00 cefazolin 2012-0 No Lily 1 gm, Memor ia 12-30 [place] Route: l 06:00: IVPB, Drug [place] 00 form: PDR/INJ, ABXQ8H, Dosing Weight 54.545, kg, Start date: 12/30/12 1:00:00, Duration: 2 day, Stop date: 12/31/12 17:00:00 cefazolin 2012-0 No Lily 1 gm, Memor ia 12-30 [place] Route: l 06:00: IVPB, Drug [place] 00 form: PDR/INJ, ABXQ8H, Dosing Weight 54.545, kg, Start date: 12/30/12 1:00:00, Duration: 2 day, Stop date: 12/31/12 17:00:00 Zofran 2012-0 No Lily 4 mg, 1 Memori a 12-30 Aragon tab, l 05:18: Route: PO, [place] 00 Drug form: TAB, Q8H, Dosing Weight 54.545, kg, PRN Nausea, Start date: 12/30/12 0:18:00, Duration: 30 day, Stop date: 01/29/13 0:17:00 Zofran 2012-0 No Lily 4 mg, 1 Memori a 12-30 Aragon tab, l 05:18: Route: PO, [place] Drug form: TAB, Q8H, Dosing Weight 54.545, kg, PRN Nausea, Start date: 12/30/12 0:18:00, Duration: 30 day, Stop date: 01/29/13 0:17:00 Zofran 2013-0 No Lily 4 mg, 1 Memori a 12-30 [place] tab, l 05:18: Route: PO, [place] 00 Drug form: TAB, Q8H, Dosing Weight 54.545, kg, PRN Nausea, Start date: 12/30/12 0:18:00, Duration: 30 day, Stop date: 01/29/13 0:17:00 Ultram 50 2012-0 No Dejon 100 mg, 2 Mem [facility] mg oral - [place] tab, l tablet 03:16: Osu[place]wu Route: PO, rm Drug form: TAB, ONCE, Dosing Weight 54.545, kg, Start date: 12/29/12 22:16:00, Stop date: 12/29/12 22:16:00 Ultram 50 2012-0 No Dejon 100 mg, 2 Mem oria mg oral 12-30 [place] tab, l tablet 03:16: Osuagwu Route: PO, rm Drug form: TAB, ONCE, Dosing Weight 54.545, kg, Start date: 12/29/12 22:16:00, Stop date: 12/29/12 22:16:00 Ultram 50 2012-0 No Dejon 100 mg, 2 Mem oria mg oral 12-30 [place]ueze tab, l tablet 03:16: Osuagwu Route: PO, [facility] Drug form: TAB, ONCE, Dosing Weight 54.545, kg, Start date: 12/29/12 22:16:00, Stop date: 12/29/12 22:16:00 Valium 2013-0 No Leona H 5 mg, 1 Memori a 8-31 Khraish tab, l 22:00: Route: PO, [place] 00 Drug form: TAB, BID, Dosing Weight 54.545, kg, Start date: 12/29/12 17:00:00, Duration: 30 day, Stop date: 01/28/13 9:00:00 Valium 2013-0 No Leona H 5 mg, 1 Memori a 8-31 Khraish tab, l 22:00: Route: PO, [place] 00 Drug form: TAB, BID, Dosing Weight 54.545, kg, Start date: 12/29/12 17:00:00, Duration: 30 day, Stop date: 01/28/13 9:00:00 Valium 2013-0 No Leona H 5 mg, 1 Memori a 8-31 Khraish tab, l 22:00: Route: PO, [place] 00 Drug form: TAB, BID, Dosing Weight 54.545, kg, Start date: 12/29/12 17:00:00, Duration: 30 day, Stop date: 01/28/13 9:00:00 BD 2012-0 No [place] 5 mL, Memoria Posiflush -31 [place] Route: l SF 14:00: IVP, Drug Form: INJ, Q12H, Start date: 12/29/12 9:00:00, Duration: 30 day, Stop date: 01/27/13 21:00:00 nicotine 2012-0 No Татьяна Yen 7 mg, 1 Mem oria 8-31 Thi Alanis patch, l 14:00: Route: [place] TOP, Drug form: ERFILM, Daily, Dosing Weight 54.545, kg, Start date: 12/29/12 9:00:00, Duration: 30 day, Stop date: 01/27/13 9:00:00 multivitami 2012- No Татьяна Yen 1 tab, M emoria n - Thi Alanis Route: PO, l 14:00: Dosing Weight 54.545, kg, Daily, Start date: 12/29/12 9:00:00, Duration: 5 day, Stop date: 01/02/13 9:00:00 folic acid No Татьяна Yen 1 mg, Mem oria 8-31 Thi Alanis Route: PO, l 14:00: Daily, Dosing Weight 54.545, kg, Start date: 12/29/12 9:00:00, Duration: 5 day, Stop date: 01/02/13 9:00:00 thiamine 2012-0 No Татьяна Yen 100 mg, Mem oria 8-31 Thi Alanis Route: PO, l 14:00: Daily, Dosing Weight 54.545, kg, Start date: 12/29/12 9:00:00, Duration: 5 day, Stop date: 01/02/13 9:00:00 BD 2012-0 No Spencer 5 mL, Memoria Posiflush -31 [place] Route: l SF 14:00: IVP, Drug Form: INJ, Q12H, Start date: 12/29/12 9:00:00, Duration: 30 day, Stop date: 01/27/13 21:00:00 nicotine No Татьяна Yen 7 mg, 1 Mem oria 8-31 Thi Alanis patch, l 14:00: Route: [place] TOP, Drug form: ERFILM, Daily, Dosing Weight 54.545, kg, Start date: 12/29/12 9:00:00, Duration: 30 day, Stop date: 01/27/13 9:00:00 multivitami No Татьяна Yen 1 tab, M emoria n 8-31 Thi Alanis Route: PO, l 14:00: Dosing Weight 54.545, kg, Daily, Start date: 12/29/12 9:00:00, Duration: 5 day, Stop date: 01/02/13 9:00:00 folic acid No Татьяна Yen 1 mg, Mem oria 8-31 Thi Alanis Route: PO, l 14:00: Daily, Dosing Weight 54.545, kg, Start date: 12/29/12 9:00:00, Duration: 5 day, Stop date: 01/02/13 9:00:00 thiamine 0 No Татьяна Yen 100 mg, Mem oria 8-31 Thi Alanis Route: PO, l 14:00: Daily, Dosing Weight 54.545, kg, Start date: 12/29/12 9:00:00, Duration: 5 day, Stop date: 01/02/13 9:00:00 BD No Spencer 5 mL, Memoria Posiflush 12-29 [place] Route: l SF 14:00: IVP, Drug Form: INJ, Q12H, Start date: 12/29/12 9:00:00, Duration: 30 day, Stop date: 01/27/13 21:00:00 nicotine No Татьяна Yen 7 mg, 1 Mem oria 8-31 Thi Alanis patch, l 14:00: Route: [place] TOP, Drug form: ERFILM, Daily, Dosing Weight 54.545, kg, Start date: 12/29/12 9:00:00, Duration: 30 day, Stop date: 01/27/13 9:00:00 multivitami 2013-0 No Татьяна Yen 1 tab, M emoria [...] [place] IVP, Drug Herm boaz form: INJ, Q5Min, Dosing Weight 54.545, kg, PRN Elevated BP, Start date: 12/29/12 8:07:00, Duration: 5 doses or times, Stop date: Limited # of times hydromorpho No [place]ato 0.5 mg, Me moria ne 12-29 Edward 0.25 mL, l 13:07: [place] Route: [place] 00 IVP, Drug form: INJ, Q5Min, Dosing Weight 54.545, kg, PRN Pain Score 7-10, Start date: 12/29/12 8:07:00, Duration: 5 doses or times, Stop date: Limited # of times flumazenil No [place] 0.2 mg, 2 M emoria 12-29 Edward mL, Route: l 13:07: [place] IVP, Drug Herm boaz 00 form: INJ, PRN, Dosing Weight 54.545, kg, PRN Benzodiaze pine Reversal, Initial dose, Start date: 12/29/12 8:07:00, Duration: 30 day, Stop date: 01/28/13 8:06:00 ondansetron 2012- No Gato 4 mg, 2 Me moria 12-29 Edward mL, Route: l 13:07: [place] IVP, Drug Herm boaz 00 form: INJ, ONCE, Dosing Weight 54.545, kg, PRN Nausea & Vomiting, Start date: 12/29/12 8:07:00 naloxone 2012- No Gato 0.04 mg, Magdaleno pilo 12-29 Edward 0.1 mL, l 13:07: [place] Route: [place] 00 IVP, Drug form: INJ, Q2MIN, Dosing Weight 54.545, kg, PRN Narcotic Reversal, Start date: 12/29/12 8:07:00, Duration: 8 doses or times, Stop date: Limited # of times labetalol No [place]ato 5 mg, 1 Magdaleno pilo 12-29 Edward mL, Route: l 13:07: [place] IVP, Drug Herm boaz 00 form: INJ, Q5Min, Dosing Weight 54.545, kg, PRN Elevated BP, Start date: 12/29/12 8:07:00, Duration: 5 doses or times, Stop date: Limited # of times hydromorpho 2012- No Gato 0.5 mg, Me moria ne [...] l 13:07: [place] IVP, Drug Herm boaz 00 form: INJ, PRN, Dosing Weight 54.545, kg, PRN Benzodiaze pine Reversal, Initial dose, Start date: 12/29/12 8:07:00, Duration: 30 day, Stop date: 01/28/13 8:06:00 ondansetron 2012-0 No Gato 4 mg, 2 Me moria 12-29 Edward mL, Route: l 13:07: [place] IVP, Drug Herm boaz 00 form: INJ, ONCE, Dosing Weight 54.545, kg, PRN Nausea & Vomiting, Start date: 12/29/12 8:07:00 naloxone No [place]ato 0.04 mg, Magdaleno pilo 12-29 Edward 0.1 mL, l 13:07: [place] Route: [place] 00 IVP, Drug form: INJ, Q2MIN, Dosing Weight 54.545, kg, PRN Narcotic Reversal, Start date: 12/29/12 8:07:00, Duration: 8 doses or times, Stop date: Limited # of times labetalol No Gato 5 mg, 1 Magdaleno pilo 12-29 Edward mL, Route: l 13:07: [place] IVP, Drug Herm boaz 00 form: INJ, Q5Min, Dosing Weight 54.545, kg, PRN Elevated BP, Start date: 12/29/12 8:07:00, Duration: 5 doses or times, Stop date: Limited # of times hydromorpho No [place]ato 0.5 mg, Me moria ne 12-29 Edward 0.25 mL, l 13:07: [place] Route: [place] IVP, Drug form: INJ, Q5Min, Dosing Weight 54.545, kg, PRN Pain Score 7-10, Start date: 12/29/12 8:07:00, Duration: 5 doses or times, Stop date: Limited # of times flumazenil No [place] 0.2 mg, 2 M emoria 12-29 Edward mL, Route: l 13:07: [place] IVP, Drug Herm boaz 00 form: INJ, PRN, Dosing Weight 54.545, kg, PRN Benzodiaze pine Reversal, Initial dose, Start date: 12/29/12 8:07:00, Duration: 30 day, Stop date: 01/28/13 8:06:00 ondansetron No [place]ato 4 mg, 2 Me moria 12-29 Edward mL, Route: l 13:07: [place] IVP, Drug Herm boaz 00 form: INJ, ONCE, Dosing Weight 54.545, kg, PRN Nausea & Vomiting, Start date: 12/29/12 8:07:00 naloxone 2012-0 No Gato 0.04 mg, Magdaleno pilo 12-29 Edward 0.1 mL, l 13:07: [place] Route: IVP, Drug form: INJ, Q2MIN, Dosing Weight 54.545, kg, PRN Narcotic Reversal, Start date: 12/29/12 8:07:00, Duration: 8 doses or times, Stop date: Limited # of times potassium 2012-0 No Татьяна Yen 40 mEq, 2 Memoria chloride 8-31 Thi Alanis tab, l 13:00: Route: PO, Drug form: ERTAB, ONCE, Dosing Weight 54.545, kg, Priority: Routine, Start date: 12/29/12 8:00:00, Stop date: 12/29/12 8:00:00 potassium 2012-0 No Татьяна Yen 40 mEq, 2 Memoria chloride 8-31 Thi Alanis tab, l 13:00: Route: PO, Drug form: ERTAB, ONCE, Dosing Weight 54.545, kg, Priority: Routine, Start date: 12/29/12 8:00:00, Stop date: 12/29/12 8:00:00 potassium 2012-0 No Татьяна Yen 40 mEq, 2 Memoria chloride 8-31 Thi Alanis tab, l 13:00: Route: PO, Drug form: ERTAB, ONCE, Dosing Weight 54.545, kg, Priority: Routine, Start date: 12/29/12 8:00:00, Stop date: 12/29/12 8:00:00 [place] 2012-0 No Татьяна Yen 1 tab, Memoria 10/325 oral -31 Thi Alanis Route: PO, l tablet 11:00: Drug Form: Karley nn 00 TAB, Dosing Weight 54.545, kg, Q6H, Start date: 12/29/12 6:00:00, Duration: 30 day, Stop date: 01/28/13 0:00:00 [place] 2012-0 No Татьяна Yen 1 tab, Memoria 10/325 oral 8-31 Thi Alanis Route: PO, l tablet 11:00: Drug Form: Karley nn 00 TAB, Dosing Weight 54.545, kg, Q6H, Start date: 12/29/12 6:00:00, Duration: 30 day, Stop date: 01/28/13 0:00:00 [place] 2012-0 No Татьяна Yen 1 tab, Memoria 10/325 oral 12-29 Thi Alanis Route: PO, l tablet 11:00: Drug Form: Karley nn 00 TAB, Dosing Weight 54.545, kg, Q6H, Start date: 12/29/12 6:00:00, Duration: 30 day, Stop date: 01/28/13 0:00:00 LORAzepam 2012-0 No Татьяна Yen 0.5 mg, Me moria -31 Thi Alanis 0.25 mL, l 10:22: Route: [place] IVP, Drug form: INJ, Q2H, Dosing Weight 54.545, kg, PRN Agitation, Start date: 12/29/12 5:22:00, Duration: 30 day, Stop date: 01/28/13 5:21:00 LORAzepam 2012-0 No Татьяна Yen 0.5 mg, Me moria 12-29 Thi Alanis 0.25 mL, l 10:22: Route: [place] 00 IVP, Drug form: INJ, Q2H, Dosing Weight 54.545, kg, PRN Agitation, Start date: 12/29/12 5:22:00, Duration: 30 day, Stop date: 01/28/13 5:21:00 LORAzepam 2012-0 No Татьяна Yen 0.5 mg, Me moria 31 Thi Alanis 0.25 mL, l 10:22: Route: [...] 30 day, Stop date: 01/28/13 4:33:00 morphine 2012-0 No Leona H 2 mg, 1 Magdaleno pilo Sulfate 8-31 Khraish mL, Route: l 09:34: IV, Drug [place] 00 form: INJ, Q4H, Dosing Weight 54.545, kg, PRN as needed for pain, Start date: 12/29/12 4:34:00, Duration: 30 day, Stop date: 01/28/13 4:33:00 normal 2012-0 No Татьяна Yen 1,000 mL, Mem oria saline 0.9% 8-31 Thi Alanis Rate: 75 l IV 1,000 mL 09:34: ml/hr, Herm boaz 00 Infuse over: 13.3 hr, Route: IV, Dosing Weight 54.545 kg, Total Volume: 1,000, Start date: 12/29/12 4:34:00, Duration: 30 day, Stop date: 01/28/13 4:33:00 morphine 2012-0 No Leona H 2 mg, 1 Magdaleno pilo Sulfate 8-31 Khraish mL, Route: l 09:34: IV, Drug [place] 00 form: INJ, Q4H, Dosing Weight 54.545, kg, PRN as needed for pain, Start date: 12/29/12 4:34:00, Duration: 30 day, Stop date: 01/28/13 4:33:00 normal 2012-0 No Татьяна Yen 1,000 mL, Mem oria saline 0.9% 8-31 Thi Alanis Rate: 75 l IV 1,000 mL 09:34: ml/hr, Herm boaz 00 Infuse over: 13.3 hr, Route: IV, Dosing Weight 54.545 kg, Total Volume: 1,000, Start date: 12/29/12 4:34:00, Duration: 30 day, Stop date: 01/28/13 4:33:00 morphine 2012-0 No Leona H 2 mg, 1 Magdaleno pilo Sulfate 8-31 Khraish mL, Route: l 09:34: IV, Drug [place] 00 form: INJ, Q4H, Dosing Weight 54.545, kg, PRN as needed for pain, Start date: 12/29/12 4:34:00, Duration: 30 day, Stop date: 01/28/13 4:33:00 Saline 2012-0 No Татьяна Yen 5 mL, Memoria Flush 0.9% 8-31 Thi Alanis Route: l 09:32: IVP, Drug [place] 00 Form: INJ, Dosing Weight 54.545, kg, PRN, PRN Line Flush, Start date: 12/29/12 4:32:00, Duration: 30 day, Stop date: 01/28/13 4:31:00 Saline 2012-0 No Татьяна Yen 5 mL, Memoria Flush 0.9% -31 Thi Alanis Route: l 09:32: IVP, Drug [place] 00 Form: INJ, Dosing Weight 54.545, kg, PRN, PRN Line Flush, Start date: 12/29/12 4:32:00, Duration: 30 day, Stop date: 01/28/13 4:31:00 Saline 2012-0 No Татьяна Yen 5 mL, Memoria Flush 0.9% - Thi Alanis Route: l 09:32: IVP, Drug [place] 00 Form: INJ, Dosing Weight 54.545, kg, PRN, PRN Line Flush, Start date: 12/29/12 4:32:00, Duration: 30 day, Stop date: 01/28/13 4:31:00 potassium 2012-0 No Татьяна Yen 40 mEq, 2 Memoria chloride 8- Thi Alanis tab, l 09:31: Route: PO, [place] 00 Drug form: ERTAB, ONCE, Dosing Weight 54.545, kg, Priority: STAT, Start date: 12/29/12 4:31:00, Stop date: 12/29/12 4:31:00 potassium 2012-0 No Татьяна Yen 40 mEq, 2 Memoria chloride 8-31 Thi Alanis tab, l 09:31: Route: PO, [place] 00 Drug form: ERTAB, ONCE, Dosing Weight 54.545, kg, Priority: STAT, Start date: 12/29/12 4:31:00, Stop date: 12/29/12 4:31:00 potassium 2012-0 No Татьяна Yen 40 mEq, 2 Memoria chloride 8-31 Thi Alanis tab, l 09:31: Route: PO, [place] 00 Drug form: ERTAB, ONCE, Dosing Weight 54.545, kg, Priority: STAT, Start date: 12/29/12 4:31:00, Stop date: 12/29/12 4:31:00 Ativan 2012-0 No Spencer 2 mg, 1 Memori a 8-31 [place] mL, Route: l 06:34: IVP, Drug [place] 00 form: INJ, ONCE, Dosing Weight 54.545, kg, Priority: STAT, Start date: 12/29/12 1:34:00, Stop date: 12/29/12 1:34:00 Ativan 0 No Spencer 2 mg, 1 Memori a 8-31 [place] mL, Route: l 06:34: IVP, Drug [place] 00 form: INJ, ONCE, Dosing Weight 54.545, kg, Priority: STAT, Start date: 12/29/12 1:34:00, Stop date: 12/29/12 1:34:00 Ativan 2012-0 No Spencer 2 mg, 1 Memori a 8-31 [place] mL, Route: l 06:34: IVP, Drug [place] 00 form: INJ, ONCE, Dosing Weight 54.545, kg, Priority: STAT, Start date: 12/29/12 1:34:00, Stop date: 12/29/12 1:34:00 Ancef 2012-0 No Spencer 1 gm, Memoria 8-31 [place] Route: l 06:16: IVPB, Drug [place] 00 form: PDR/INJ, ONCE, Dosing Weight 54.545, kg, Priority: STAT, Start date: 12/29/12 1:16:00, Stop date: 12/29/12 1:16:00 gentamicin 2012-0 No Spencer 272 mg, Me moria + Sodium 8- [place] 6.8 mL, l Chloride 06:16: Route: [place] 0.9% IV 100 00 IVPB, mL ONCE, Dosing Weight 54.545, kg, Priority: STAT, Start date: 12/29/12 1:16:00, Stop date: 12/29/12 1:16:00 Ancef 0 No [place] 1 gm, Memoria 8-31 [place] Route: l 06:16: IVPB, Drug [place] 00 form: PDR/INJ, ONCE, Dosing Weight 54.545, kg, Priority: STAT, Start date: 12/29/12 1:16:00, Stop date: 12/29/12 1:16:00 gentamicin 2012-0 No [place] 272 mg, Me moria + Sodium 8-31 [place] 6.8 mL, l Chloride 06:16: Route: [place] 0.9% IV 100 00 IVPB, mL ONCE, Dosing Weight 54.545, kg, Priority: STAT, Start date: 12/29/12 1:16:00, Stop date: 12/29/12 1:16:00 Ancef 2012-0 No [place] 1 gm, Memoria 8-31 [place] Route: l 06:16: IVPB, Drug [place] form: PDR/INJ, ONCE, Dosing Weight 54.545, kg, Priority: STAT, Start date: 12/29/12 1:16:00, Stop date: 12/29/12 1:16:00 gentamicin 2012-0 No [place] 272 mg, Me moria + Sodium 8-31 [place] 6.8 mL, l Chloride 06:16: Route: [place] 0.9% IV 100 00 IVPB, mL ONCE, Dosing Weight 54.545, kg, Priority: STAT, Start date: 12/29/12 1:16:00, Stop date: 12/29/12 1:16:00 lidocaine-e 2012-0 No [place] 1 ml, Mem oria pi 8- [place] Route: l 1%-[id number] 05:42: SUB-Q, Herm boaz 00 Drug Form: SOLN, Dosing Weight 54.545, kg, ONCE, STAT, Start date: 12/29/12 0:42:00, Stop date: 12/29/12 0:42:00 lidocaine-e 2012-0 No [place] 1 ml, Mem oria pi 8-31 [place] Route: l 1%-[id number] 05:42: SUB-Q, Herm boaz 00 Drug Form: SOLN, Dosing Weight 54.545, kg, ONCE, STAT, Start date: 12/29/12 0:42:00, Stop date: 12/29/12 0:42:00 lidocaine-e 2012-0 No [place] 1 ml, Mem oria pi 8-31 [place] Route: l 1%-[id number] 05:42: SUB-Q, Herm boaz 00 Drug Form: SOLN, Dosing Weight 54.545, kg, ONCE, STAT, Start date: 12/29/12 0:42:00, Stop date: 12/29/12 0:42:00 Dilaudid 2012-0 No Spencer 2 mg, 1 Magdaleno pilo 8-31 [place] mL, Route: l 05:41: IV, Drug [place] form: INJ, ONCE, Dosing Weight 54.545, kg, Start date: 12/29/12 0:41:00, Stop date: 12/29/12 0:41:00 Dilaudid 2012-0 No Spencer 2 mg, 1 Magdaleno pilo 8-31 [place] mL, Route: l 05:41: IV, Drug [place] form: INJ, ONCE, Dosing Weight 54.545, kg, Start date: 12/29/12 0:41:00, Stop date: 12/29/12 0:41:00 Dilaudid 0 No [place] 2 mg, 1 Magdaleno pilo 8-31 [place] mL, Route: l 05:41: IV, Drug [place] form: INJ, ONCE, Dosing Weight 54.545, kg, Start date: 12/29/12 0:41:00, Stop date: 12/29/12 0:41:00 Dilaudid 2012-0 No Spencer 1 mg, 0.5 Me moria 8-31 [place] mL, Route: l 04:19: IV, Drug [place] form: INJ, ONCE, Dosing Weight 54.545, kg, Start date: 12/28/12 23:19:00, Stop date: 12/28/12 23:19:00 Dilaudid 2012-0 No [place] 1 mg, 0.5 Me moria 8-31 [place] mL, Route: l 04:19: IV, Drug [place] 00 form: INJ, ONCE, Dosing Weight 54.545, kg, Start date: 12/28/12 23:19:00, Stop date: 12/28/12 23:19:00 Dilaudid 2012-0 No Spencer 1 mg, 0.5 Me moria 8-31 [place] mL, Route: l 04:19: IV, Drug [place] form: INJ, ONCE, Dosing Weight 54.545, kg, Start date: 12/28/12 23:19:00, Stop date: 12/28/12 23:19:00 Sodium 2012-0 No [place] IV, 1000 Memor ia Chloride 8-31 [place] ml/hr, l 0.9% IV 03:30: Q1H, Start Herm boaz date: 12/28/12 22:30:00, Duration: 2, 1,000 ml Sodium 2012-0 No [place] IV, 1000 Memor ia Chloride 8-31 [place] ml/hr, l 0.9% IV 03:30: Q1H, Start Herm boaz date: 12/28/12 22:30:00, Duration: 2, 1,000 ml Sodium 2012-0 No [place] IV, 1000 Memor ia Chloride 8-31 [place] ml/hr, l 0.9% IV 03:30: Q1H, Start Herm boaz date: 12/28/12 22:30:00, Duration: 2, 1,000 ml morphine 2012-0 No [place] 4 mg, Memori a Sulfate 8-31 [place] Route: l 03:14: IVP, Drug [place] form: INJ, ONCE, Dosing Weight 54.545, kg, Priority: STAT, Start date: 12/28/12 22:14:00, Stop date: 12/28/12 22:14:00 morphine 2012-0 No [place] 4 mg, Memori a Sulfate 8-31 [place] Route: l 03:14: IVP, Drug [place] form: INJ, ONCE, Dosing Weight 54.545, kg, Priority: STAT, Start date: 12/28/12 22:14:00, Stop date: 12/28/12 22:14:00 morphine 2012-0 No [place] 4 mg, Memori a Sulfate 8-31 [place] Route: l 03:14: IVP, Drug [place] form: INJ, ONCE, Dosing Weight 54.545, kg, Priority: STAT, Start date: 12/28/12 22:14:00, Stop date: 12/28/12 22:14:00 NS 2000 mL No [place] 2,000 mL, Memoria 8-31 [place] Rate: l 02:58: 2,000 [place] 00 ml/hr, Infuse over: 1 hr, Route: IV, Dosing Weight 54.545 kg, Total Volume: 2,000, Start date: 12/28/12 21:58:00, Duration: 1 doses or times, Stop date: 12/28/12 22:57:00, Bolus DoseBolus Dose NS 2000 mL No [place] 2,000 mL, Memoria 8-31 [place] Rate: l 02:58: 2,000 [place] 00 ml/hr, Infuse over: 1 hr, Route: IV, Dosing Weight 54.545 kg, Total Volume: 2,000, Start date: 12/28/12 21:58:00, Duration: 1 doses or times, Stop date: 12/28/12 22:57:00, Bolus DoseBolus Dose NS 2000 mL No [place] 2,000 mL, Memoria 8-31 [place] Rate: l 02:58: 2,000 [place] 00 ml/hr, Infuse over: 1 hr, Route: IV, Dosing Weight 54.545 kg, Total Volume: 2,000, Start date: 12/28/12 21:58:00, Duration: 1 doses or times, Stop date: 12/28/12 22:57:00, Bolus DoseBolus Dose Visipaque No [place] 63 mL, Magdaleno pilo 320mg/ml 8-31 [place] Route: l 01:59: IVP, Drug [place] 00 Form: SOLN, kg, ONCALL, STAT, Start date: 12/28/12 20:59:00, Duration: 1 doses or times, Weight = 40 - 59kg -- "To be infused by Radiology Staff ONLY"Weigh t = 40 - 59kg -- "To be infused by Radiology Staff ONLY" Visipaque 2012-0 No [place] 63 mL, Magdaleno pilo 320mg/ml 8-31 [place] Route: l 01:59: IVP, Drug [place] 00 Form: SOLN, kg, ONCALL, STAT, Start date: 12/28/12 20:59:00, Duration: 1 doses or times, Weight = 40 - 59kg -- "To be infused by Radiology Staff ONLY"Weigh t = 40 - 59kg -- "To be infused by Radiology Staff ONLY" Visipaque No [place] 63 mL, Magdaleno pilo 320mg/ml 8- [place] Route: l 01:59: IVP, Drug [place] Form: SOLN, kg, ONCALL, STAT, Start date: 12/28/12 20:59:00, Duration: 1 doses or times, Weight = 40 - 59kg -- "To be infused by Radiology Staff ONLY"Weigh t = 40 - 59kg -- "To be infused by Radiology Staff ONLY" morphine No [place] 4 mg, 1 Magdaleno pilo Sulfate 8-31 [place] mL, Route: l 01:56: IVP, Drug [place] form: INJ, ONCE, kg, Priority: STAT, Start date: 12/28/12 20:56:00, Stop date: 12/28/12 20:56:00 ondansetron No [place] 4 mg, 2 M emoria 8-31 [place] mL, Route: l 01:56: IVP, Drug [place] 00 form: INJ, ONCE, kg, Priority: STAT, Start date: 12/28/12 20:56:00, Stop date: 12/28/12 20:56:00 Saline No [place] 5 ml, Memoria Flush 0.9% - [place] Route: l 01:56: IVP, Drug [place] Form: INJ, kg, PRN, PRN Line Flush, Administer at least once every 12 hours, Start date: 12/28/12 20:56:00, Duration: 30 day, Stop date: 01/27/13 20:55:00 morphine No [place] 4 mg, 1 Magdaleno pilo Sulfate 8-31 [place] mL, Route: l 01:56: IVP, Drug [place] form: INJ, ONCE, kg, Priority: STAT, Start date: 12/28/12 20:56:00, Stop date: 12/28/12 20:56:00 ondansetron 2012-0 No [place] 4 mg, 2 M emoria 8-31 [place] mL, Route: l 01:56: IVP, Drug [place] 00 form: INJ, ONCE, kg, Priority: STAT, Start date: 12/28/12 20:56:00, Stop date: 12/28/12 20:56:00 Saline 2012-0 No [place] 5 ml, Memoria Flush 0.9% 8-31 [place] Route: l 01:56: IVP, Drug [place] 00 Form: INJ, kg, PRN, PRN Line Flush, Administer at least once every 12 hours, Start date: 12/28/12 20:56:00, Duration: 30 day, Stop date: 01/27/13 20:55:00 morphine 2012-0 No [place] 4 mg, 1 Magdaleno pilo Sulfate 8-31 [place] mL, Route: l 01:56: IVP, Drug [place] form: INJ, ONCE, kg, Priority: STAT, Start date: 12/28/12 20:56:00, Stop date: 12/28/12 20:56:00 ondansetron 2012-0 No [place] 4 mg, 2 M emoria 8-31 [place] mL, Route: l 01:56: IVP, Drug [place] 00 form: INJ, ONCE, kg, Priority: STAT, Start date: 12/28/12 20:56:00, Stop date: 12/28/12 20:56:00 Saline 2012-0 No [place] 5 ml, Memoria Flush 0.9% 8-31 [place] Route: l 01:56: IVP, Drug [place] 00 Form: INJ, kg, PRN, PRN Line Flush, Administer at least once every 12 hours, Start date: 12/28/12 20:56:00, Duration: 30 day, Stop date: 01/27/13 20:55:00 Vital Signs Vital Name Observation Time Observation Value Comments Source Systolic blood 2021-05-30 118 mm[Hg] [facility] 08:21:00 [facility] Diastolic blood 2021-05-30 79 mm[Hg] [facility] 08:21:00 [facility] Heart rate 2021-05-30 91 /min [facility] 08:21:00 [facility] Body temperature 2021-05-30 36.83 [facility] 08:21:00 [facility] Respiratory rate 2021-05-30 20 /min [facility] 08:21:00 [facility] Body weight 2021-05-30 56.7 kg [facility] 08:21:00 [facility] BMI 2021-05-30 18.46 kg/m2 [facility] 08:21:00 [facility] Oxygen saturation 2021-05-30 100 /min [facility] in Arterial blood 08:21:00 [facility] by Pulse oximetry [place] Systolic blood 2022-03-29 120 mm[Hg] [facility] pressure 16:21:00 Diastolic blood 2022-03-29 87 mm[Hg] [facility] h pressure 16:21:00 Heart rate 2022-03-29 98 /min [facility] 16:21:00 Body temperature 2022-03-29 36.28 Sarah Beth [facility] 16:21:00 Respiratory rate 2022-03-29 17 /min [facility] 16:21:00 Oxygen saturation 2022-03-29 99 /min [facility] Ar[facility] 16:21:00 by Pulse oximetry Systolic blood 2022-03-10 105 mm[Hg] [facility] pressure 22:00:00 Diastolic blood 2022-03-10 76 mm[Hg] [facility] h pressure 22:00:00 Heart rate 2022-03-10 64 /min [facility] 22:00:00 Respiratory rate 2022-03-10 18 /min [facility] 22:00:00 Oxygen saturation 2022-03-10 99 /min [facility] in Arterial blood 22:00:00 by Pulse oximetry Body temperature 2022-03-10 36.67 Sarah Beth [facility] 19:29:00 Body height 2022-03-10 175.3 cm [facility] 05:39:00 Body weight 2022-03-10 58.968 kg [facility] 05:39:00 BMI 2022-03-10 19.20 kg/m2 [facility] 05:39:00 Systolic blood 2022-03-09 120 mm[Hg] [facility] pressure 22:42:22 [facility] Diastolic blood 2022-03-09 79 mm[Hg] [facility] pressure 22:42:22 [facility] Heart rate 2022-03-09 73 /min [facility] 22:42:22 Hospital Body temperature 2022-03-09 36.89 Sarah Beth [facility] 22:42:22 Hospital Respiratory rate 2022-03-09 20 /min [facility] 22:42:22 Hospital Oxygen saturation 2022-03-09 96 /min [facility] in Arterial blood 22:42:22 Hospital by Pulse oximetry Body height 2022-03-09 172.7 cm [facility] 22:40:00 Hospital Body weight 2022-03-09 62.596 kg [facility] 22:40:00 [facility] BMI 2022-03-09 20.98 kg/m2 [facility] 22:40:00 [facility] Systolic blood 2022-02-04 108 mm[Hg] [facility] pressure 23:16:00 Diastolic blood 2022-02-04 71 mm[Hg] [facility] pressure 23:16:00 Heart rate 2022-02-04 59 /min Notify RN Jazmine [facility] 23:16:00 Body temperature 2022-02-04 36.56 Sarah Beth [facility] 23:16:00 Respiratory rate 2022-02-04 19 /min [facility] 23:16:00 Oxygen saturation 2022-02-04 100 /min [facility] in Arterial blood 23:16:00 by Pulse oximetry Body height 2022-02-04 175.3 cm [facility] 09:28:00 Body weight 2022-02-04 65.8 kg [facility] 09:28:00 BMI 2022-02-04 21.42 kg/m2 [facility] 09:28:00 Systolic blood 2022-01-13 122 mm[Hg] [facility] pressure 02:14:00 [facility] Diastolic blood 2022-01-13 84 mm[Hg] [facility] pressure 02:14:00 [facility] Heart rate 2022-01-13 79 /min [facility] 02:14:00 [facility] Body temperature 2022-01-13 36.56 Sarah Beth [facility] 02:14:00 Hospital Respiratory rate 2022-01-13 16 /min [facility] 02:14:00 Hospital Oxygen saturation 2022-01-13 95 /min [facility] in Arterial blood 02:14:00 Hospital by Pulse oximetry Systolic (mm Hg) 2019-12-15 [facility]mann 06:24:00 Diastolic (mm Hg) 2019-12-15 [facility] ermann 06:24:00 Respitory Rate 2019-12-15 [facility] 06:[facility]00 Temperature Oral 2019-12-15 99 F [facility] ([facility] 06:24:00 Respitory Rate 2019-12-15 [facility] 06:03:00 Respitory Rate 2019-12-15 [facility] 04:44:00 Systolic (mm Hg) 2019-12-15 [facility] 04:44:00 Diastolic (mm Hg) 2019-12-15 [facility] 04:44:00 Systolic (mm Hg) 2019-12-15 [facility] 04:25:00 Diastolic (mm Hg) 2019-12-15 [facility] 04:25:00 Heart Rate 2019-12-15 [facility] 04:25:00 Temperature Oral 2019-12-15 99.7 F [facility] (F) 04:25:00 Systolic (mm Hg) 2018-04-18 [facility] 16:28:00 Diastolic (mm Hg) 2018-04-18 [facility] 16:28:00 Respitory Rate 2018-04-18 [facility] 16[facility]28:00 Temperature Oral 2018-04-18 98.0 F [facility] (F) 16:28:00 Systolic (mm Hg) 2018-04-18 [facility] 15:12:00 Diastolic (mm Hg) 2018-04-18 [facility] 15:12:00 Respitory Rate 2018-04-18 [facility] 15:12:00 Systolic (mm Hg) 2018-04-18 [facility] 13:26:00 Diastolic (mm Hg) 2018-04-18 [facility] 13:26:00 Respitory Rate 2018-04-18 [facility] 13:26:00 Weight 2018-04-18 [facility] 11:55:00 BMI Calculated 2018-04-18 [facility] 11:55:00 Height 2018-04-18 172.72 cm [facility] 11:55:00 Temperature Oral 2018-04-18 98.2 F [facility] (F) 11:55:00 Heart Rate 2018-04-18 [facility] 11:55:00 Heart Rate 2018-04-14 [facility] 14:00:00 Temperature Oral 2018-04-14 97.5 F [facility] (F) 14:00:00 Systolic (mm Hg) 2018-04-14 [facility] 14:00:00 Diastolic (mm Hg) 2018-04-14 [facility] 14:00:00 Heart Rate 2018-04-14 [facility] 10:00:00 Systolic (mm Hg) 2018-04-14 [facility] 10:00:00 Diastolic (mm Hg) 2018-04-14 [facility] 10:00:00 Temperature Oral 2018-04-14 98.4 F [facility] (F) 10:00:00 Heart Rate 2018-04-14 [facility] 06:00:00 Systolic (mm Hg) 2018-04-14 [facility] 06:00:00 Diastolic (mm Hg) 2018-04-14 [facility] 06:00:00 Temperature Oral 2018-04-14 98.4 F [facility] (F) 06:00:00 Respitory Rate 2018-04-13 [facility] 18:00:00 Respitory Rate 2018-04-13 [facility] 16:00:00 Respitory Rate 2018-04-13 [facility] 15:00:00 BMI Calculated 2018-04-13 [facility] 04:49:00 Weight 2018-04-13 [facility] 04:49:00 Height 2018-04-13 157.48 cm [facility] 04:49:00 Height 2018-04-12 177.8 cm [facility] 21:49:00 Weight 2018-04-12 [facility] 21:49:00 BMI Calculated 2018-04-12 [facility] 21:49:00 Systolic (mm Hg) 2016-05-01 [facility] 06:38:00 Diastolic (mm Hg) 2016-05-01 [facility] 06:38:00 Respitory Rate 2016-05-01 [facility] 06:38:00 Heart Rate 2016-05-01 [facility] 06:38:00 Height 2016-05-01 175.26 cm [facility] 01:44:00 BMI Calculated 2016-05-01 [facility] 01:44:00 Weight 2016-05-01 [facility] 01:44:00 Systolic (mm Hg) 2016-05-01 [facility] 01:44:00 Diastolic (mm Hg) 2016-05-01 [facility] 01:44:00 Heart Rate 2016-05-01 [facility] 01:44:00 Respitory Rate 2016-05-01 [facility] 01:44:00 Temperature Oral 2016-05-01 98.1 F [facility] (F) 01:44:00 Respitory Rate 2016-04-30 [facility] 13:02:00 Systolic (mm Hg) 2016-04-30 [facility] 13:02:00 Diastolic (mm Hg) 2016-04-30 [facility] 13:02:00 Heart Rate 2016-04-30 [facility] 13:02:00 Temperature Oral 2016-04-30 98.0 F [facility] (F) 13:02:00 BMI Calculated 2016-04-30 [facility] 10:35:00 Height 2016-04-30 175.26 cm [facility] 10:35:00 Weight 2016-04-30 [facility] 10:35:00 Respitory Rate 2016-04-30 [facility] 10:35:00 Temperature Oral 2016-04-30 98.0 F [facility] (F) 10:35:00 Heart Rate 2016-04-30 [facility] 10:35:00 Systolic (mm Hg) 2016-04-30 [facility] 10:35:00 Diastolic (mm Hg) 2016-04-30 [facility] 10:35:00 Respitory Rate 2016-04-07 [facility] 16:22:00 Systolic (mm Hg) 2016-04-07 [facility] 16:22:00 Diastolic (mm Hg) 2016-04-07 [facility] 16:22:00 Temperature Oral 2016-04-07 98.2 F [facility] (F) 16:22:00 Heart Rate 2016-04-07 [facility] 16:22:00 Systolic (mm Hg) 2016-04-07 [facility] 13:26:00 Diastolic (mm Hg) 2016-04-07 [facility] 13:26:00 Temperature Oral 2016-04-07 98.5 F [facility] (F) 13:26:00 Heart Rate 2016-04-07 [facility] 13:26:00 Respitory Rate 2016-04-07 [facility] 13:26:00 Heart Rate 2016-04-07 [facility] 12:55:00 Temperature Oral 2016-04-07 98.5 F [facility] (F) 12:55:00 Respitory Rate 2016-04-07 [facility] 12:55:00 Systolic (mm Hg) 2016-04-07 [facility] 12:55:00 Diastolic (mm Hg) 2016-04-07 [facility] 12:55:00 Weight 2016-04-07 [facility] 01:47:00 Height 2016-04-07 175.26 cm [facility] 01:47:00 BMI Calculated 2016-04-07 [facility] 01:47:00 Systolic (mm Hg) 2016-01-14 [facility] 07:34:00 Diastolic (mm Hg) 2016-01-14 [facility] 07:34:00 Respitory Rate 2016-01-14 [facility] 07:34:00 Systolic (mm Hg) 2016-01-14 [facility] 04:36:00 Diastolic (mm Hg) 2016-01-14 [facility] 04:36:00 Respitory Rate 2016-01-14 [facility] 04:36:00 Systolic (mm Hg) 2016-01-14 [facility] 03:28:00 Diastolic (mm Hg) 2016-01-14 [facility] 03:28:00 Respitory Rate 2016-01-14 [facility] 03:28:00 Heart Rate 2016-01-14 [facility] 02:47:00 Weight 2016-01-14 [facility] 02:12:00 BMI Calculated 2016-01-14 [facility] 02:12:00 Height 2016-01-14 175.26 cm [facility] 02:12:00 Temperature Oral 2016-01-14 98.5 F [facility] (F) 02:12:00 Heart Rate 2016-01-14 [facility] 02:12:00 Diastolic (mm Hg) 2012-12-31 [facility] 01:48:00 Systolic (mm Hg) 2012-12-31 [facility] 01:48:00 Respitory Rate 2012-12-31 [facility] 01:48:00 Heart Rate 2012-12-31 [facility] 01:48:00 Temperature Oral 2012-12-31 98.3 F [facility] (F) 01:48:00 Diastolic (mm Hg) 2012-12-30 [facility] 20:21:00 Systolic (mm Hg) 2012-12-30 [facility] 20:21:00 Respitory Rate 2012-12-30 [facility] 20:21:00 Heart Rate 2012-12-30 Jennifer Jenkinsan n 20:21:00 Temperature Oral 2012-12-30 97.5 F Jennifer Quintanilla [facility] (F) 20:21:00 Heart Rate 2012-12-30 Jennifer Jenkinsan n 16:18:00 Temperature Oral 2012-12-30 97 F Jennifer Quintanilla [facility] (F) 16:18:00 Respitory Rate 2012-12-30 [facility] 16:18:00 Diastolic (mm Hg) 2012-12-30 Jennifer Jaramillo ermann 16:18:00 Systolic (mm Hg) 2012-12-30 Jennifer Quintanilla rmann 16:18:00 Height 2012-12-29 175.26 cm Jennifer Freed n 02:00:00 Weight 2012-12-29 Jennifer Freed n 02:00:00 Procedures Procedure Date / Time Performing Clinician Source Performed VALPROIC ACID 2022-03-14 06:16:00 Holly Jarrell alth COMPREHENSIVE METABOLIC 2022-03-13 07:33:00 Holly Jarrell [facility] PANEL LIPID PROFILE 2022-03-13 07:33:00 Holly Jarrell alth HEMOGLOBIN A1C 2022-03-13 07:33:00 Holly Jarrell alth SYPHILIS MONITOR FOR 2022-03-13 07:33:00 Holly Jarrell [facility] TREATMENT THYROID STIMULATING 2022-03-13 07:33:[address] [facility] HORMONE (TSH) HIV AG/AB COMBO ROUTINE 2022-03-13 07:33:00 Holly Jarrell [facility] SCREENING BMP POC 2022-03-10 11:48:00 Emre Acuna lt CREATININE POC 2022-03-10 11:47:00 Emre Acuna lt SARS-COV-2, FLU A/B, RSV 2022-03-10 11:35:00 [facility] CORONAVIRUS, COVID-19, 2022-03-10 11:35:00 [facility] HC COMPLETE BLD COUNT 2022-03-09 23:22:00 Vern, [facility] W/AUTO DIFF BASIC METABOLIC PANEL 2022-03-09 23:22:00 Vern [facility] ACETAMINOPHEN LEVEL 2022-03-09 23:22:00 Vern [facility] SALICYLATE LEVEL 2022-03-09 23:22:00 [facility] ESTIMATED GFR 2022-03-09 23:22:00 Vern [facility] XRAY CHEST 1 VIEW - TB 2022-03-05 05:15:14 Apple Gan [facility] SCREEN (AFFLIATE) SARS-COV-2 PCR RAPID TEST 2022-03-05 00:00:00 Provider, [facility] Med [facility] 2022-03-05 00:00:00 Provider, [facility] MANUALLY ENTERED Med POC GLUCOSE-AFFILIATE 2022-02-28 00:00:00 Provider, [facility] MANUALLY ENTERED Med CONSULT CLINICAL CASE 2022-02-04 12:29:21 [facility] MANAGEMENT (RN/SW) XRAY FOOT 3 VIEWS MIN 2022-02-04 10:59:00 [facility] XRAY ANKLE 3 VIEW MIN 2022-02-04 10:59:00 [facility] URINE CULTURE 2022-01-13 05:32:00 Rehrer, [facility] URINE DRUGS OF ABUSE 2022-01-13 05:32:00 Rehrer, [facility] SCREEN URINALYSIS SCREEN AND 2022-01-13 05:32:00 Rehrer, [facility] MICROSCOPY, WITH REFLEX TO CULTURE COVID-19 QUALITATIVE 2022-01-13 03:52:00 Rehrer, [facility] RT-PCR COVID-19 OMICRON VARIANT 2022-01-13 03:52:00 Rehrer, [facility] QUALITATIVE RT-PCR HC COMPLETE BLD COUNT 2022-01-13 03:52:00 Rehrer, [facility] W/AUTO DIFF COMPREHENSIVE METABOLIC 2022-01-13 03:52:00 Rehrer, [facility] PANEL THYROID STIMULATING 2022-01-13 03:52:00 Rehrer, [facility] HORMONE T4, FREE 2022-01-13 03:52:00 Rehrer, [facility] ALCOHOL LEVEL, BLOOD 2022-01-13 03:52:00 Rehrer, [facility] ACETAMINOPHEN LEVEL 2022-01-13 03:52:00 Rehrer, [facility] SALICYLATE LEVEL 2022-01-13 03:52:00 Rehrer, [facility] ESTIMATED GFR 2022-01-13 03:52:00 Rehrer, [facility] ECG ED PRELIMINARY 2022-01-13 02:35:02 Rehrer, [facility] INTERPRETATION CONSULT CLINICAL CASE 2022-01-12 20:09:34 [facility] MANAGEMENT (RN/SW) ACETAMINOPHEN 2022-01-12 12:37:00 Inocencia Lozano [facility] 12 LEAD EKG 2022-01-12 11:30:22 Inocencia Lozano [facility] CONSENT/REFUSAL FOR 2021-05-30 08:08:34 Doctor Unassigned, [facility] DIAGNOSIS AND TREATMENT [facility] Plan of Care Planned Activity Planned Date Details Comments Source Future Scheduled 2022-04-14 COVID-19 VACCINE (#1) [facility] Test 22:41:37 [code = COVID-19 VACCINE (#1)] Future Scheduled 2022-04-14 Pneumococcal Vaccine: [facility] Test 22:41:37 Pediatrics (0 to 5 Years) and At-Risk Patients (6 to 64 Years) (1 - PCV) [code = Pneumococcal Vaccine: Pediatrics (0 to 5 Years) and At-Risk Patients (6 to 64 Years) (1 - PCV)] Future Scheduled 2022-04-14 Hepatitis C screening [facility] Test 22:41:37 (procedure) [code = 197910091] Future Scheduled 2022-04-14 INFLUENZA VACCINE Method [facility] Test 22:41:37 [code = INFLUENZA VACCINE] Future Scheduled 2022-03-09 HEPATITIS B VACCINES [facility] Test 19:41:41 (1 of 3 - 3-dose series) [code = HEPATITIS B VACCINES (1 of 3 - 3-dose series)] Future Scheduled 2022-03-09 COVID-19 VACCINE (#1) [facility] Test 19:41:41 [code = COVID-19 VACCINE (#1)] Future Scheduled 2022-03-09 Pneumococcal Vaccine: [facility] Test 19:41:41 Pediatrics (0 to 5 Years) and At-Risk Patients (6 to 64 Years) (1 - PCV) [code = Pneumococcal Vaccine: Pediatrics (0 to 5 Years) and At-Risk Patients (6 to 64 Years) (1 - PCV)] Future Scheduled 2022-03-09 Hepatitis C screening [facility] Test 19:41:41 (procedure) [code = [id number]] Future Scheduled 2022-03-09 INFLUENZA VACCINE Method [facility] Test 19:41:41 [code = INFLUENZA VACCINE] Future Scheduled 2022-01-29 [facility] Test 00:00:00 (>/= 19 yrs) [code = IMM Influenza Seasonal (>/= 19 yrs)] Future Scheduled 2022-01-29 IMM Influenza [facility] Test 00:00:00 (>/= 19 yrs) [code = IMM Influenza Seasonal (>/= 19 yrs)] Future Scheduled 2022-01-29 IMM Influ[facility] Test 00:00:00 (>/= 19 yrs) [code = IMM Influenza Seasonal (>/= 19 yrs)] Future Scheduled 2022-01-29 IMM Influenza [facility] Test 00:00:00 (>/= 19 yrs) [code = IMM Influenza Seasonal (>/= 19 yrs)] Future Scheduled 2022-01-13 HEPATITIS B VACCINES [facility] Test 01:43:47 (1 of 3 - 3-dose series) [code = HEPATITIS B VACCINES (1 of 3 - 3-dose series)] Future Scheduled 2022-01-13 COVID-19 VACCINE (#1) [facility] Test 01:43:47 [code = COVID-19 VACCINE (#1)] Future Scheduled 2022-01-13 Pneumococcal Vaccine: [facility] Test 01:43:47 Pediatrics (0 to 5 Years) and At-Risk Patients (6 to 64 Years) (1 - PCV) [code = Pneumococcal Vaccine: Pediatrics (0 to 5 Years) and At-Risk Patients (6 to 64 Years) (1 - PCV)] Future Scheduled 2022-01-13 Hepatitis C screening [facility] Test 01:43:47 (procedure) [code = [id number]] Future Scheduled 2022-01-13 INFLUENZA VACCINE Method [facility] Test 01:43:47 [code = INFLUENZA VACCINE] Future Scheduled 2022-01-13 HEPATITIS B VACCINES [facility] Test 01:43:47 (1 of 3 - 3-dose series) [code = HEPATITIS B VACCINES (1 of 3 - 3-dose series)] Future Scheduled 2022-01-13 COVID-19 VACCINE (#1) [facility] Test 01:43:47 [code = COVID-19 VACCINE (#1)] Future Scheduled 2022-01-13 Pneumococcal Vaccine: [facility] Test 01:43:47 Pediatrics (0 to 5 Years) and At-Risk Patients (6 to 64 Years) (1 - PCV) [code = Pneumococcal Vaccine: Pediatrics (0 to 5 Years) and At-Risk Patients (6 to 64 Years) (1 - PCV)] Future Scheduled 2022-01-13 Hepatitis C screening [facility] Test 01:43:47 (procedure) [code = [id number]] Future Scheduled 2022-01-13 INFLUENZA VACCINE Method [facility] Test 01:43:47 [code = INFLUENZA VACCINE] Future Scheduled 1994 Imm Pneumococcal 0-64 [facility] Test 00:00:00 (1 - PCV) [code = Imm Pneumococcal 0-64 (1 - PCV)] Future Scheduled 1994 Imm Pneumococcal 0-64 [facility] Test 00:00:00 (1 - PCV) [code = Imm Pneumococcal 0-64 (1 - PCV)] Future Scheduled 1994 Imm Pneumococcal 0-64 [facility] Test 00:00:00 (1 - PCV) [code = Imm Pneumococcal 0-64 (1 - PCV)] Future Scheduled 1994 Imm Pneumococcal 0-64 [facility] Test 00:00:00 (1 - PCV) [code = Imm Pneumococcal 0-64 (1 - PCV)] Future Scheduled 1988 COVID-19 Vaccine (#1) [facility] Test 00:00:00 [code = COVID-19 Vaccine (#1)] Future Scheduled 1988 COVID-19 Vaccine (#1) [facility] Test 00:00:00 [code = COVID-19 Vaccine (#1)] Future Scheduled 1988 COVID-19 Vaccine (#1) [facility] Test 00:00:00 [code = COVID-19 Vaccine (#1)] Future Scheduled 1988 COVID-19 Vaccine (#1) [facility] Test 00:00:00 [code = COVID-19 Vaccine (#1)] Future Scheduled 1988 Fluoride Varnish [code [facility] Test 00:00:00 = Fluoride Varnish] Future Scheduled 1988 Fluoride Varnish [code [facility] Test 00:00:00 = Fluoride Varnish] Encounters Start End Encounter Admission Attending Care Care Encounter Source Date/Time Date/Time Type Type Clinicians Facility Department ID 2022-03-30 2022-03-30 [facility] [id number] [place] 00:00:00 00:00:00 [facility] 2022-03-10 2022-03-14 [facility] [id number] [place] 22:17:00 15:10:00 Encounter [facility] 2022-03-10 2022-03-14 [id number] [place] 22:17:00 15:10:00 Encounter [facility] 2022-03-10 2022-03-10 Emergency 1 [facility] [id number] [place] 06:16:00 22:11:00 [facility] 2022-03-10 2022-03-10 Emergency Emre Acuna [facility] [id number] [place] 06:16:00 22:11:00 [facility] 2022-03-09 2022-03-09 Emergency Kyree, 1.2.840.1 [id number] Method 16:47:00 20:21:00 Lamar 43933.1.1 821 [facility] 3.430.2.7 spita .3.977775 l .8 2022-03-09 2022-03-09 Emergency [facility] [id number] [place] 00:00:00 00:00:00 LAMAR [address] 2022-02-24 2022-02-24 Outpatient [facility] [id number] [place] 00:00:00 00:00:00 [facility] 2022-02-04 2022-02-05 Emergency [facility] [id number] [place] 23:51:00 00:17:00 , [facility] 2022-02-04 2022-02-05 Emergency [facility] [id number] [place] 23:51:00 00:17:00 [facility] 2022-02-04 2022-02-04 Emergency [facility] [id number] [place] 10:18:51 10:59:41 [facility] 2022-01-12 2022-01-13 Emergency Rehrer, 1.2.840.1 [id number] Methodi 21:16:00 06:04:[address] 3.430.2.7 Hospit a .3.098293 l .8 2022-01-12 2022-01-13 Emergency Rehrer, 1.2.840.1 [id number] Methodi 21:16:00 06:04:[address] Dio Jack [address] 3.430.2.7 Hospit a .3.285482 l .8 2022-01-12 2022-01-12 Emergency [facility] [id number] [place] 20:08:00 22:12:00 [facility] 2022-01-12 2022-01-12 [facility] [id number] [place] 20:08:00 22:12:00 [facility] 2022-01-12 2022-01-12 Travel 1.2.840.1 1.2.552.725 [id number] Methodi 00:00:00 00:00:[address] 3.430.2.7 0.2.7.3.698 spita .3.782777 084.8 l .8 2022-01-12 2022-01-12 Travel 1.2.840.1 1.2.253.455 [id number] Methodi 00:00:00 00:00:[address] 3.430.2.7 0.2.7.3.698 Ho spita .3.213094 084.8 l .8 2021-12-30 2021-12-30 Emergency Emergency [place], [facility] [id number] [facility] 00:14:00 00:14:00 Lukuman 92 2021-12-30 2021-12-30 Emergency [facility] [id number] [facility] 00:14:00 00:14:00 92 2021-12-29 2021-12-29 Emergency 1.2.840.1 [id number] Methodi 00:27:00 01:06:[address] 3.430.2.7 Hospit a .3.457386 l .8 2021-12-29 2021-12-29 Emergency 1.2.840.1 [id number] Methodi 00:27:00 01:06:[address] 3.430.2.7 Hospit a .3.003224 l .8 2021-12-29 2021-12-29 Travel 1.2.840.1 1.2.562.677 [id number] [facility]i 00:00:00 00:00:[address] 3.430.2.7 0.2.7.3.698 Ho spita .3.315466 084.8 l .8 2021-12-29 2021-12-29 Travel 1.2.840.1 1.2.676.835 [id number] Methodi 00:00:00 00:00:[address] 3.430.2.7 0.2.7.3.698 Ho spita .3.236668 084.8 l .8 2021-05-30 2021-05-30 [facility] 1.2.060.878 [id number] Univers 02:35:00 02:50:00 [place] CHANEY 350.1.13.10 ity of [place] 4.2.7.2.686 [place] [facility] [id number] [facility] 084 Branch 2021-05-30 2021-05-30 Emergency [facility] E[facility] [id number] Univers 02:35:00 02:50:00 WAKILI ity of [facility] 2021-05-30 2021-05-30 Orders Doctor MERINO 1.2.840.114 [id number] Univers 00:00:00 00:00:00 Only Unassigned, ARAMIS 350.1.13.10 ity of [place] [facility] 4.2.7.2.686 Ward as [phone] [facility] 009 Branch 2021-05-30 2021-05-30 Letter WILBER Harris 1.2.131.461 [id number] Univers 00:00:00 00:00:00 (Out) Roshan ARAMIS 350.1.13.10 it y of [facility] 4.2.7.2.686 Ward as [phone] [facility] 019 Branch 2019-12-15 2019-12-15 Emergency nullFlavo [facility] [id number] Memoria 04:20:04 08:22:00 swapnil peace [facility] 2019-12-15 2019-12-15 Emergency nullFlavo [facility] [id number] Memoria 04:20:04 08:22:00 swapnil peace [facility] 2019-12-14 2019-12-15 Outpatient Carmen [facility] [id number] 23:20:04 03:22:00 Elio Harryh 2019-12-14 2019-12-15 Emergency E CARMEN [facility] [id number] Memoria 23:20:00 03:22:00 ELIO peace [facility] 2018-04-18 2018-04-18 Emergency [facility]Fl[facility] [id number] Memoria 11:54:00 16:31:00 r [place] [facility] 2018-04-18 2018-04-18 Emergency nullFlavo [facility] [id number] Memoria 11:54:00 16:31:00 swapnil Massey [facility] 2018-04-18 2018-04-18 Outpatient Shawna [facility] [id number] 05:54:00 10:31:00 Sbheber Echeverria 2018-04-12 2018-04-14 Inpatient [facility]Flavo [facility] [id number] Memoria 21:46:00 21:30:00 swapnil Massey [address] [place] [address] 2018-04-12 2018-04-14 Inpatient [facility] [id number] Memoria 21:46:00 21:30:00 swapnil Massey [address] [place] [address] 2018-04-12 2018-04-14 Outpatient Mena [facility] [id number] 15:46:00 15:30:00 Eddie Rodriguez 2016-05-01 2016-05-01 Emergency [facility]Flavo [facility] [id number] Memoria 01:27:00 07:00:00 swapnil Delgado [facility] 2016-05-01 2016-05-01 Emergency nullFlavo [facility] [id number] Memoria 01:27:00 07:00:00 swapnil Delgado [facility] 2016-04-30 2016-05-01 Outpatient Sherley [id number] 19:27:00 01:00:00 Hiram Delgado 2016-04-30 2016-04-30 Emergency [facility]Flavo [facility] [id number] Memoria 10:30:00 13:04:00 swapnil Gale [facility] 2016-04-30 2016-04-30 Emergency nullFlavo [facility] [id number] Memoria 10:30:00 13:04:00 swapnil Gale [facility] 2016-04-30 2016-04-30 Outpatient Heide 9 [id number] 04:30:00 07:04:00 Santana 2016-04-07 2016-04-07 Emergency [facility]Flavo [facility] [id number] Memoria 01:26:00 16:46:00 swapnil [facility] 2016-04-07 2016-04-07 Emergency [facility]Fl[facility] [id number] Memoria 01:26:00 16:46:00 r Bryson 02 l [facility] 2016-04-06 2016-04-07 Outpatient Constantino [facility] [id number] 19:26:00 10:46:00 Mirta andre 2016-01-14 2016-01-14 Emergency nullFlavo [facility] [id number] Memoria 02:11:00 08:00:00 r [facility] 2016-01-14 2016-01-14 Emergency [facility]Fl[facility] [id number] Memoria 02:11:00 08:00:00 r [place] [facility] 2016-01-13 2016-01-14 Outpatient Jacob [facility] [id number] 21:11:00 03:00:00 Noemi Shi 2012-12-29 2012-12-30 Inpatient nullFlavo [facility] [id number] Memoria 04:32:00 21:30:00 r Medical 00 [facility] 2012-12-29 2012-12-30 Inpatient nullFlavo [facility] [id number] Memoria 04:32:00 21:30:00 r Medical 00 l [facility] Results Test Description Test Time Test Comments Results Result Comments Source RPR Ser-Titr 2022-03-13 09:23:21 Test Item Value Reference Range Interpretation Comme nts RPR Ser Ql (test code = 88179-8) NON-REACTIVE Non-reactive HHSHIV 1+2 Ab+HIV1 p24 Ag SerPl Ql [id number] 08:57:46 Test Item Value Reference Range Interpretation Comments HIV 1+2 Ab+HIV1 p24 Ag SerPl Ql [place] NEGATIVE Negative (test code = 55666-7) HHSCoronavirus, CoVID-19, [id number] 13:03:17 Test Item Value Reference Interpretation Comments Range COVID-19 Not Detected Not Detected INTERPRETATION: (SARS-COV-2) (test No detect able code = 12192-6) levels of SARS-CoV-2 Coronavirus (COVID-19) were present in this patient's sampl e by this test. A not detected result does not exclude the possibility of active infectio n with this virus due to other factors that ma y affect the results such as a poorly collected sample, viral titers below th e limit of detection of th e assay, and the infrequent possibility of inhibitors in the sample. Thi s result should b e interpreted in conjunction wit h clinical, radiographic, and other laboratory findings and should not be used as the abimael e indicator of active infectio n with SARS-CoV-2 Coronavirus (COVID-19). LISA (test code = COMMENT: This justen LISA) real-time reverse transcriptase polymerase chain reaction (RT-PCR) test rapidly detects SARS-CoV-2 (COVID-19) virus from nasopharyngeal and nasal swab specimens. In accordance with the FDA's guidance document "Policy for Diagnostic Tests for Coronavirus Disease-2019 during the Public Health Emergency", this test was developed, and its performance characteristics were verified by the [facility] molecular diagnostics laboratory and is authorized for clinical diagnostic use. This laboratory is certified under the Clinical Laboratory Improvement Amendments (CLIA) as qualified to perform high complexity clinical laboratory testing. Lab Interpretation Normal (test code = 16513-8) [facility] [id number] 13:03:17 Test Item Value Reference Interpretation Comments Range COVID-19 Not Detected Not Detected INTERPRETATION: (SARS-COV-2) (test No detect able code = 92894-6) levels of SARS-CoV-2 Coronavirus (COVID-19) were present in this patient's sampl e by this test. A not detected result does not exclude the possibility of active infectio n with this virus due to other factors that ma y affect the results such as a poorly collected sample, viral titers below th e limit of detection of th e assay, and the infrequent possibility of inhibitors in the sample. Thi s result should b e interpreted in conjunction wit h clinical, radiographic, and other laboratory findings and should not be used as the abimael e indicator of active infectio n with SARS-CoV-2 Coronavirus (COVID-19). LISA (test code = COMMENT: This justen LISA) real-time reverse transcriptase polymerase chain reaction (RT-PCR) test rapidly detects SARS-CoV-2 (COVID-19) virus from nasopharyngeal and nasal swab specimens. In accordance with the FDA's guidance document "Policy for Diagnostic Tests for Coronavirus Disease-2019 during the Public Health Emergency", this test was developed, and its performance characteristics were verified by the [facility] molecular diagnostics laboratory and is authorized for clinical diagnostic use. This laboratory is certified under the Clinical Laboratory Improvement Amendments (CLIA) as qualified to perform high complexity clinical laboratory testing. Lab Interpretation Normal (test code = 80818-0) [facility] RNA Resp Ql PORTIA+[id number] 13:03:17 Test Item Value Reference Range Interpretation Comments Hospitalized? (test No code = 18251-4) ICU? (test code = No 66730-6) Symptomatic as defined No by CDC? (test code = 84571-1) Employed in No Healthcare? (test code = 05926-4) Resident in a Yes congregate care setting (including nursing homes, residential care for people with intellectual and developmental disabilities, psychiatric treatment facilities, group homes, board and care homes, homeless senior care, foster care or other): (test code = 45710-7) SARS-CoV-2 RNA Resp Ql NOT DETECTED Not Detected INTER PRETATION: No PORTIA+probe (test code = detec table levels 94179-9) of SARS-CoV-2 Coronavirus (COVID-19) were present in this patient's sampl e by this test. A no t detected result does not exclud e the possibility of active infectio n with this virus due to other factor s that may affect the results such as a poorly collecte d sample, viral titers below th e limit of detect ion of the assay, a nd the infrequent possibility of inhibitors in t he sample. This re sult should be interpreted in conjunction wit h clinical, radiographic, a nd other laborator y findings and sh ould not be used as the sole indicator of active infectio n with SARS-CoV-2 Coronavirus (COVID-19). COMMENT: This justen real-time reverse transcriptase polymerase chain reaction (RT-PCR) test rapidly detects SARS-CoV-2 (COVID-19) virus from nasopharyngeal and nasal swab specimens. In accordance with the FDA's guidance document "Policy for Diagnostic Tests for Coronavirus Disease-2019 during the Public Health Emergency", this test was developed, and its performance characteristics were verified by the [facility] molecular diagnostics laboratory and is authorized for clinical diagnostic use. This laboratory is certified under the Clinical Laboratory Improvement Amendments (CLIA) as qualified to perform high complexity clinical laboratory testing.[facility] BMP POC docked [id number] 11:49:51 Test Item Value Reference Range Interpretation Comments Sodium POC (test code = 140 mmol/L 136-145 21687641) Potassium POC (test code 4.0 mmol/L 3.5-5.1 = 68721833) Chloride POC (test code 104 mmol/L 98-107 = 77188086) TCO2 POC (test code = 28 mmol/L 21-32 Physic shea Notified 76421455) Urea Nitrogen POC (test 19 mg/dL 7-18 H code = 52798848) Glucose POC (test code = 79 mg/dL 74-106 99467090) Hemoglobin POC (test 13.9 g/dL 12-16 code = 20754856) Hematocrit POC (test 41.0 % 37.0-47.0 code = 65854524) Lab Interpretation (test Abnormal code = 08900-7) [facility] CREATININE POC docked [id number] 11:49:51 Test Item Value Reference Range Interpretation Comments Creatinine POC (test 1.0 mg/dL 0.6-1.3 Physici an Notified code = 92991936) eGFR If non- Am 98 See_Comment [Aut omated message] (test code = 48531310) The s ystem which generated this result transmit abdelrahman reference range : >=90 mL/min/1.7 3 m2. The reference r annemarie was not used to interpret this result as normal/abnormal . eGFR If Am (test 114 See_Comment [A utomated message] code = 01640625) The system which generated this result transmit abdelrahman reference range : >=90 mL/min/1.7 3 m2. The reference r annemarie was not used to interpret this result as normal/abnormal . Lab Interpretation (test Normal code = 96621-5) [facility] BMP POC docked [id number] 11:49:51 Test Item Value Reference Range Interpretation Comments Sodium POC (test code = 140 mmol/L 136-145 74832411) Potassium POC (test code 4.0 mmol/L 3.5-5.1 = 37560748) Chloride POC (test code 104 mmol/L 98-107 = 28571230) TCO2 POC (test code = 28 mmol/L 21-32 Physic shea Notified 40159698) Urea Nitrogen POC (test 19 mg/dL 7-18 H code = 47136134) Glucose POC (test code = 79 mg/dL 74-106 67162194) Hemoglobin POC (test 13.9 g/dL 12-16 code = 70945892) Hematocrit POC (test 41.0 % 37.0-47.0 code = 75215508) Lab Interpretation (test Abnormal code = 36354-2) [facility] CREATININE POC docked [id number] 11:49:51 Test Item Value Reference Range Interpretation Comments Creatinine POC (test 1.0 mg/dL 0.6-1.3 Physici an Notified code = 37876538) eGFR If non- Am 98 See_Comment [Aut omated message] (test code = 63268801) The s ystem which generated this result transmit abdelrahman reference range : >=90 mL/min/1.7 3 m2. The reference r annemarie was not used to interpret this result as normal/abnormal . eGFR If Am (test 114 See_Comment [A utomated message] code = 05792397) The system which generated this result transmit abdelrahman reference range : >=90 mL/min/1.7 3 m2. The reference r annemarie was not used to interpret this result as normal/abnormal . Lab Interpretation (test Normal code = 14214-9) [facility] [id number] 06:41:00 Test Item Value Reference Range Interpretation Comments Urine culture (test SEE COMMENT Bacteriu pilo screen code = 8499341) negative. [facility]2022-09-15 06:41:00 Test Item Value Reference Range Interpretation Comments Urine culture (test SEE COMMENT Bacteriu pilo screen code = 2878138) negative. [facility]2022-09-15 06:41:00 Test Item Value Reference Range Interpretation Comments Urine culture (test SEE COMMENT Bacteriu pilo screen code = 7896637) negative. [facility]2022-09-15 06:41:00 Test Item Value Reference Range Interpretation Comments Urine culture (test SEE COMMENT Bacteriu pilo screen code = 8633500) negative. [facility] ED Preliminary Interpretation - Not an [id number] 02:35:02 Test Item Value Reference Range Interpretation Comments LISA (test code = LISA) Dio Boswell DO 01/16/2022 11:06 [facility] ED Preliminary Interpretation - Not an OrderPerformed by: Dio Boswell DOAuthorized by: Dio Boswell DO ECG reviewed by ED Physician in the absence of a stubber: yes Previous ECG: Previous ECG: UnavailableInterpretat ion: Interpretation: abnormal Rate: ECG rate: 60 ECG rate assessment: normal Rhythm: Rhythm: sinus rhythm Ectopy: Ectopy: none QRS: QRS axis: Normal QRS intervals: NormalConduction: Conduction: abnormal Abnormal conduction: incomplete RBBB ST segments: ST segments: NormalT waves: T waves: normal Lab Interpretation Abnormal (test code = 73201-2) [facility] Preliminary Interpretation - Not an [id number] 02:35:02 Test Item Value Reference Range Interpretation Comments LISA (test code = LISA) Dio Boswell DO 01/16/2022 11:06 [facility] ED Preliminary Interpretation - Not an OrderPerformed by: Dio Boswell DOAuthorized by: Dio Boswell DO ECG reviewed by ED Physician in the absence of a stubber: yes Previous ECG: Previous ECG: UnavailableInterpretat ion: Interpretation: abnormal Rate: ECG rate: 60 ECG rate assessment: normal Rhythm: Rhythm: sinus rhythm Ectopy: Ectopy: none QRS: QRS axis: Normal QRS intervals: NormalConduction: Conduction: abnormal Abnormal conduction: incomplete RBBB ST segments: ST segments: NormalT waves: T waves: normal Lab Interpretation Abnormal (test code = 18551-3) [facility] ED Preliminary Interpretation - Not an [id number] 02:35:02 Test Item Value Reference Range Interpretation Comments LISA (test code = LISA) Dio Boswell DO 01/16/2022 11:06 [facility] ED Preliminary Interpretation - Not an OrderPerformed by: Dio Boswell DOAuthorized by: Dio Boswell DO ECG reviewed by ED Physician in the absence of a stubber: yes Previous ECG: Previous ECG: UnavailableInterpretat ion: Interpretation: abnormal Rate: ECG rate: 60 ECG rate assessment: normal Rhythm: Rhythm: sinus rhythm Ectopy: Ectopy: none QRS: QRS axis: Normal QRS intervals: NormalConduction: Conduction: abnormal Abnormal conduction: incomplete RBBB ST segments: ST segments: NormalT waves: T waves: normal Lab Interpretation Abnormal (test code = 77080-6) [facility] ED Preliminary Interpretation - Not an [id number] 02:35:02 Test Item Value Reference Range Interpretation Comments LISA (test code = LISA) Dio Boswell DO 01/16/2022 11:06 [facility] ED Preliminary Interpretation - Not an OrderPerformed by: Dio Boswell DOAuthorized by: Dio Boswell DO ECG reviewed by ED Physician in the absence of a stubber: yes Previous ECG: Previous ECG: UnavailableInterpretat ion: Interpretation: abnormal Rate: ECG rate: 60 ECG rate assessment: normal Rhythm: Rhythm: sinus rhythm Ectopy: Ectopy: none QRS: QRS axis: Normal QRS intervals: NormalConduction: Conduction: abnormal Abnormal conduction: incomplete RBBB ST segments: ST segments: NormalT waves: T waves: normal Lab Interpretation Abnormal (test code = 42552-6) [facility] IhosjiypZOTT-OfP-4 (COVID-19) RNA [Presence] in Respiratory specimen by PORTIA with probe [id number] 00:36:01 Test Item Value Reference Range Interpretation Comments SARS-CoV-2 (COVID-19) RNA [Presence] Detected in Respiratory specimen by PORTIA with probe detection (test code = 33594-3) Whether patient is employed in a Unknown healthcare setting (test code = 87693-6) Whether the patient has symptoms Unknown related to condition of interest (test code = 91736-9) Whether the patient was hospitalized Unknown for condition of interest (test code = 94318-2) Whether the patient was admitted to Unknown intensive care unit (ICU) for condition of interest (test code = 29961-8) Whether patient resides in a Unknown congregate care setting (test code = 13510-2) status (test code = Unknown 89819-1) Date and time of symptom onset (test Unknown code = 56242-1) DEON [facility]LSEN [facility]12 Lead [id number] 11:30:2212 LEAD EKG FOR [facility] Test Date: 2702-07-79[place] Name: [facility] Department: 5520Patient ID: [id number] Room: Gender: M Food And Beverage Assistant: [id number]: 1990 Requested By: INOCENCIA LOZANO Order Number: [id number] Reading MD: Ayush Saunders MeasurementsIntervals [place] Rate: 72 P: 67PR: 141 QRS: 70QRSD: 110 T: 29QT: 397 QTc: 422 Interpretive StatementsSINUS RHYTHMINCOMPLETE RIGHT BUNDLE BRANCH BLOCK [90+ ms QRS DURATION, TERMINAL R INV1/V2,40+ ms S IN I/aVL/V4/V5/V6]POSSIBLE LATERAL MYOCARDIAL INFARCTION , PROBABLY OLD [30 ms Q WAVE INI/aVL/V5/V6]Electronically Signed On 01-14-2022 12:12:05 CDT by [facility]undersM[facility] CenterO[facility] Lead [id number] 11:30:2212 LEAD EKG FOR [facility] Test Date: 3741-46-85Lwd Name: SABAS [facility] ent: 5520Patient ID: [id number] Room: Gender: M Food And Beverage Assistant: [id number]: 1990 Requested By: INOCENCIA LOZANO Order Number: [id number] Reading MD: Ayush Saunders MeasurementsIntervals [place] Rate: 72 P: 67PR: 141 QRS: 70QRSD: 110 T: 29QT: 397 QTc: 422 Interpretive StatementsSINUS RHYTHMINCOMPLETE RIGHT BUNDLE BRANCH BLOCK [90+ ms QRS DURATION, TERMINAL R INV1/V2,40+ ms S IN I/aVL/V4/V5/V6]POSSIBLE LATERAL MYOCARDIAL INFARCTION , PROBABLY OLD [30 ms Q WAVE INI/aVL/V5/V6]Electronically SignedOn 01-14-2022 12:12:05 CDT by [facility]ilarHolzer Health SystemOsen12 Lead [id number] 11:30:2212 LEAD EKG FOR [facility] Test Date: 8045-85-87Hiw Name: [facility] Department: 5520Patient ID: [id number] Room: Gender: M Food And Beverage Assistant: [id number]: 1990 Requested By: INOCENCIA LOZANO Order Number: [id number] Reading MD: Ayush Saunders MeasurementsIntervals [place] Rate: 72 P: 67PR: 141 QRS: 70QRSD: 110 T: 29QT: 397 QTc: 422 Interpretive StatementsSINUS RHYTHMINCOMPLETE RIGHT BUNDLE BRANCH BLOCK [90+ ms QRS DURATION, TERMINAL R INV1/V2,40+ ms S IN I/aVL/V4/V5/V6]POSSIBLE LATERAL MYOCARDIAL INFARCTION , PROBABLY OLD [30 ms Q WAVE INI/aVL/V5/V6]Electronically Signed On 01-14-2022 12:12:05 CDT by [facility]12 Lead [id number] 11:30:2212 LEAD EKG FOR [facility] Test Date: 3767-80-16Dif Name: SABAS MADERA Department: 5520Patient ID: [id number] Room: Gender: M Food And Beverage Assistant: [id number]: 1990 Requested By: INOCENCIA LOZANO Order Number: [id number] Reading MD: Ayush Saunders MeasurementsIntervals [place] Rate: 72 P: 67PR: 141 QRS: 70QRSD: 110 T: 29QT: 397 QTc: 422 Interpretive StatementsSINUS RHYTHMINCOMPLETE RIGHT BUNDLE BRANCH BLOCK [90+ ms QRS DURATION, TERMINAL R INV1/V2,40+ ms S IN I/aVL/V4/V5/V6]POSSIBLE LATERAL MYOCARDIAL INFARCTION , PROBABLY OLD [30 ms Q WAVE INI/aVL/V5/V6]Electronically Signed On 01-14-2022 12:12:05 CDT by [facility], COVID19 [id number] 00:45:00 Test Item Value Reference Range Interpretation Comments Coronavirus PCR, For use under Emergency COVID19 Rapid (test Use Authorization (EUA) code = SARSCOV2) only. Coronavirus PCR, Reference Range: COVID19 Rapid (test Negative code = TVJWLTZ20.1) SARS-CoV-2 PCR Result: Positive by RT-PCR A (test code = SARS-CoV-2 PCR Result:) COVID-19 Status: Asymptomaticadrian g rn notifiedComplete Blood Count Auto Diff 2021-12-30 00:45:00 Test Item Value Reference Range Interpretation Comments White Blood Count (test code = 6.7 x10 3/uL 4.4-10.5 N WBCT) Red Blood Count (test code = 4.27 x10 6/uL 4.10-5.70 N RBC) Hemoglobin (test code = HGBT) 12.9 g/dL 13.4-17.4 L Hematocrit (test code = HCTT) 37.4 % 38.7-52.0 L Mean Corpuscular Volume (test 87.60 fL 80.00-100.00 N code = MCV) Mean Corpuscular Hemoglobin 30.2 pg 27.0-32.5 N (test code = MCH) Mean Corpuscular HGB Conc 34.50 g/dL 32.00-37.50 N (test code = MCHC) RDW Coefficient of Variation 13.4 % 11.5-14.5 N (test code = RDWCV) Platelet Count (test code = 173.0 x10 3/uL 140.0-440.0 N PLTT) Mean Platelet Volume (test 10.5 fL code = MPV) nRBC Abs (test code = NRBCA) 0 nRBC Pct (test code = NRBCP) 0 % UA, Urinalysis Rflx Cult/[id number] 00:45:00 Test Item Value Reference Range Interpretation Comments Color,Urine (test code = UCOL) Dark Yellow Yellow A Clarity,Urine (test code = Clear Clear UCLAR) Ph, Urine (test code = UPH) 5.0 5.0-9.0 N Specific [place],Urine (test >= 1.030 1.005-1.030 N code = USG) Blood,Urine (test code = UBLD) Negative mg/dL Negative Protein,Urine (test code = Trace mg/dL Negative A UPRO) Glucose,Urine (UA) (test code Negative mg/dL Negative = UGLU) Ketones,Urine (test code = Negative mg/dL Negative UKET) Nitrate,Urine (test code = Negative Negative UNIT) Bilirubin,Urine (test code = Negative mg/dL Negative UBIL) Urobilinogen,Urine (test code 1.0 E.U./dL Normal = UURO) Leukocyte Esterase,Urine (test Negative mg/dL Negative code = ULEU) Urine [id number] 00:45:00 Test Item Value Reference Range Interpretation Comments RBC,Urine (test code = URBCUF) None Seen /HPF 0-2 WBC,Urine (test code = UWBCUF) 0-5 /HPF 0-5 Epithelial Cell,Urine (test None Seen /HPF 0-5 code = UECUF) Casts,Urine (test code = 0-5 /LPF None Seen UCASTUF) Bacteria,Urine (test code = None Seen /hpf None Seen UBACTUF) Manual Differential, [id number] 00:45:00 Test Item Value Reference Range Interpretation Comments Neutrophils % (Manual) 80 % (test code = NEUT%M) Lymphocytes % (Manual) 5.0 % 12.0-44.0 L (test code = LYMPH%M) Monocytes % (Manual) (test 14.0 % 0.0-11.0 H code = MONO%M) Eosinophils % (Manual) 1 % (test code = EOS%M) Neutrophils # (Manual) 5.4 x10 3/uL 1.6-7.4 N (test code = NEUT#M) Lymphocytes # (Manual) 0.3 x10 3/uL 0.5-4.6 L (test code = LYMPH#M) Monocytes # (Manual) (test 0.9 x10 3/uL 0.0-1.2 N code = MONO#M) Eosinophils # (Manual) 0.067 (test code = EOS#M) Platelet Estimate (test Adequate Normal code = PLTEST) RBC Morphology (test code = Normal Morphology Normal RM) Drug Screen,[id number] 00:45:00 Test Item Value Reference Range Interpretation Comments PCP Phencyclidine Negative Negative Screen,Urine (test code = PCPU) Amphetamine Positive Negative A Confirmation by GC/MS Screen,Urine (test code not routinely = AMPU) performed. Ifconfirmation is required, an or kelly must be placed. Methadone Screen,Urine Negative Negative (test code = METHU) Opiate Screen,Urine Negative Negative (test code = UOPIS) Barbituates Negative Negative Screen,Urine (test code = BARBU) Benzodiazepines Negative Negative Screen,Urine (test code = UBENZS) Cocaine Screen,Urine Positive Negative A (test code = UCOCS) Cannabinoid Negative Negative Screen,Urine (test code = UTHCS) Propoxyphene Screen, Negative Negative Urine (test code = UPROP) Comprehensive Metabolic [id number] 00:45:00 Test Item Value Reference Range Interpretation Comments SODIUM (test code = NA) 135.0 mmol/L 136.0-145.0 L Potassium,K (test code = K) 3.7 mmol/L 3.0-5.1 N Chloride (test code = CL) 103 mmol/L 98-107 N Carbon Dioxide (test code = CO2) 23 mmol/L 20-31 N Anion Gap (test code = GAP) 9 mmol/L 5-15 N Blood Urea Nitrogen (test code = 24 mg/dL 9-23 H BUN) Creatinine (test code = CREATT) 1.22 mg/dL 0.55-1.02 H Creatinine Clr Calc Pharmacy 77.35 mL/min (test code = CRCLPHA) Estimated GFR ( Jolene > 60 mL/min/1.73m2 (test code = EGFRAA) Estimated GFR (Non Afr Jolene > 60 mL/min/1.73m2 (test code = EGFRNAA) BUN/Creatinine Ratio (test code 20 ratio 10-20 N = BCRATIO) Glucose (test code = GLU) 91 mg/dL 74-106 N Osmolality,Calculated (test code 283.5 = OSMOC) Calcium (test code = CA) 8.9 mg/dL 8.3-10.6 N Bilirubin,Total (test code = 1.2 mg/dL 0.2-1.1 H BILIT) Aspartate Amino Transferase 224 U/L 0-34 H (test code = AST) Alanine Aminotransferase (test 166 U/L 10-49 H code = ALT) Total Protein (test code = TP) 7.3 g/dL 5.7-8.2 N Albumin Level (test code = ALB) 5.2 g/dL 3.2-4.8 H Globulin (test code = GLOB) 2.1 mg/dL 2.3-3.5 L Albumin/Globulin Ratio (test 2.5 ratio 0.8-2.0 H code = AGRATIO) Alkaline Phosphatase (test code 44 U/L 46-116 L = ALP) Ethanol [id number] 00:45:00 Test Item Value Reference Range Interpretation Comments Ethanol (test code < 3 mg/dL The pharm acological = ETOH) response to blo od alcohol levels mayvary from individual to i ndividual. The fatal xiomara ntrationhas been reported t o be >400mg/dL. CHEM [id number] 04:57:00 Test Item Value Reference Range Interpretation Comments Glucose Lvl (test code = Glucose Lvl) 141 70-99 [facility] [id number] 04:57:00 Test Item Value Reference Range Interpretation Comments BUN (test code = BUN) 7 7-22 [facility] [id number] 04:57:00 Test Item Value Reference Range Interpretation Comments Creatinine Lvl (test code = Creatinine 1.10 0.50-1.40 Lvl) [facility] [id number] 04:57:00 Test Item Value Reference Range Interpretation Comments Sodium Lvl (test code = Sodium Lvl) 138 135-145 [facility] [id number] 04:57:00 Test Item Value Reference Range Interpretation Comments Potassium Lvl (test code = Potassium 3.1 3.5-5.1 Lvl) [facility] [id number] 04:57:00 Test Item Value Reference Range Interpretation Comments Chloride Lvl (test code = Chloride Lvl) 106 95-109 [facility] [id number] 04:57:00 Test Item Value Reference Range Interpretation Comments CO2 (test code = CO2) 27 24-32 [facility] [id number] 04:57:00 Test Item Value Reference Range Interpretation Comments Calcium Lvl (test code = Calcium Lvl) 8.9 8.5-10.5 [facility] [id number] 04:57:00 Test Item Value Reference Range Interpretation Comments Albumin Lvl (test code = Albumin Lvl) 4.2 3.5-5.0 [facility] [id number] 04:57:00 Test Item Value Reference Range Interpretation Comments AGAP (test code = AGAP) 8.1 10.0-20.0 [facility] [id number] 04:57:00 Test Item Value Reference Range Interpretation Comments B/C Ratio (test code = B/C Ratio) 6 1 6-25 [facility] [id number] 04:57:00 Test Item Value Reference Range Interpretation Comments eGFR (test code = eGFR) 89 [facility]uten[facility] [id number] 04:57:00 Test Item Value Reference Range Interpretation Comments Total Protein (test code = Total 7.6 6.4-8.4 Protein) [place] [id number] 04:57:00 Test Item Value Reference Range Interpretation Comments ALT (test code = ALT) 23 See_Comment [Auto mated message] The system which ge nerated this result transmit abdelrahman reference range : <=65. The reference range was not used to interpr et this result as gurpreet l/abnormal. [facility] [id number] 04:57:00 Test Item Value Reference Range Interpretation Comments AST (test code = AST) 16 See_Comment [Auto mated message] The system which ge nerated this result transmit abdelrahman reference range : <=37. The reference range was not used to interpr et this result as gurpreet l/abnormal. [facility] [id number] 04:57:00 Test Item Value Reference Range Interpretation Comments Alk Phos (test code = Alk Phos) 38 39-136 [facility] [id number] 04:57:00 Test Item Value Reference Range Interpretation Comments Bili Total (test code = Bili Total) 0.3 0.2-1.3 [facility] [id number] 04:57:00 Test Item Value Reference Range Interpretation Comments Globulin (test code = Globulin) 3.4 2.7-4.2 [facility] [id number] 04:57:00 Test Item Value Reference Range Interpretation Comments A/G Ratio (test code = A/G Ratio) 1.2 1 0.7-1.6 [facility] Hos[id number] 04:57:00 Test Item Value Reference Range Interpretation Comments WBC (test code = WBC) 9.2 3.7-10.4 [place] [address]-08-16 04:57:00 Test Item Value Reference Range Interpretation Comments RBC (test code = RBC) 4.56 4.70-6.10 [facility]KhdqtiyCXZBYEZGLP1758-81-97 04:57:00 Test Item Value Reference Range Interpretation Comments Hgb (test code = Hgb) 13.3 14.0-18.0 [facility]LgwueolEPQADGBNEL9640-12-70 04:57:00 Test Item Value Reference Range Interpretation Comments Hct (test code = Hct) 39.7 42.0-54.0 [facility] HospitalOinjrjcBSBVUZXFZI5353-48-62 04:57:00 Test Item Value Reference Range Interpretation Comments MCV (test code = MCV) 87.0 80.0-94.0 [facility] HospitalQvgmxmzKQAAPJFQKY6458-41-60 04:57:00 Test Item Value Reference Range Interpretation Comments MCH (test code = MCH) 29.2 pg 27.0-31.0 [facility] HospitalEoriiipAMEVXCRJTC5376-13-19 04:57:00 Test Item Value Reference Range Interpretation Comments MCHC (test code = MCHC) 33.6 32.0-36.0 [facility] HospitalFoyvpncZRENGZNUZW8826-90-78 04:57:00 Test Item Value Reference Range Interpretation Comments RDW (test code = RDW) 13.1 11.5-14.5 [facility] HospitalSoftufdWREHLACRBC5006-24-76 04:57:00 Test Item Value Reference Range Interpretation Comments Platelet (test code = Platelet) 162 133-450 [facility] HospitalXgjzqxcQYTPDWYBST0912-05-10 04:57:00 Test Item Value Reference Range Interpretation Comments MPV (test code = MPV) 9.8 7.4-10.4 [facility] HospitalZgwlmxyAYNSBDEXZW6014-48-92 04:57:00 Test Item Value Reference Range Interpretation Comments Segs (test code = Segs) 79.0 45.0-75.0 [facility] HospitalYsbxpspPMJTSYFVDW1812-92-18 04:57:00 Test Item Value Reference Range Interpretation Comments Lymphocytes (test code = Lymphocytes) 13.7 20.0-40.0 [facility] HospitalUxnqozcWACYQCYWIQ7020-78-22 04:57:00 Test Item Value Reference Range Interpretation Comments Monocytes (test code = Monocytes) 6.5 2.0-12.0 [place] [address]-08-16 04:57:00 Test Item Value Reference Range Interpretation Comments Eosinophils (test code = 0.5 See_Comment [A utomated message] The Eosinophils) system which ge nerated this result tra nsmitted reference range : <=4.0. The reference r annemarie was not used to int erpret this result as normal/abnormal . [facility] HospitalOlbiljzBORGHAONWU6026-31-24 04:57:00 Test Item Value Reference Range Interpretation Comments Basophils (test code = 0.3 See_Comment [Aut omated message] The Basophils) system which ge nerated this result tra nsmitted reference range : <=1.0. The reference r annemarie was not used to int erpret this result as normal/abnormal . [facility] CampusMoejjhdSDOQGSBKKW8848-17-18 04:57:00 Test Item Value Reference Range Interpretation Comments Neutrophils # (test code = Neutrophils 7.3 1.5-8.1 #) [facility]XegbtmyLSBBGFCSRD8422-98-96 04:57:00 Test Item Value Reference Range Interpretation Comments Lymphocytes # (test code = Lymphocytes 1.3 1.0-5.5 #) [facility] HospitalAgvxwnpUJEXGTGFXM8263-32-31 04:57:00 Test Item Value Reference Range Interpretation Comments Monocytes # (test code 0.6 See_Comment [Aut omated message] The = Monocytes #) system which generated this result tra nsmitted reference range : <=0.8. The reference r annemarie was not used to int erpret this result as normal/abnormal . [facility] CampusKgzdndlGYHHUGREMS9568-30-79 04:57:00 Test Item Value Reference Range Interpretation Comments Ethanol Lvl (test code = Ethanol Lvl) no gt [facility] HospitalIiccoxePFGANLFQRW6569-24-62 04:57:00 Test Item Value Reference Range Interpretation Comments Etoh (%) (test code = Etoh (%)) no gt [facility] HospitalBechhhqUTLRJEYBWI5421-02-92 04:57:00 Test Item Value Reference Range Interpretation Comments Acetaminoph Lvl (test code (12/14/19 11:57 PM) 10-20 = Acetaminoph Lvl) [facility] HospitalKhlcbnoHHSJEFQDGL8328-41-88 04:57:00 Test Item Value Reference Range Interpretation Comments Salicylate Lvl (test 3.4 See_Comment [Autom ated message] The code = Salicylate Lvl) syste m which generated this result tra nsmitted reference range : <=30.0. The reference r annemarie was not used to int erpret this result as normal/abnormal . [facility]2020-08-16 04:57:00 Test Item Value Reference Range Interpretation Comments Glucose Lvl (test code = Glucose Lvl) 141 70-99 [facility] [employer] PQFCF1737-27-71 04:57:00 Test Item Value Reference Range Interpretation Comments BUN (test code = BUN) 7 7-22 [facility] CampusRakutenATRIUM [facility] B[facility] MED[facility] CENTERPXIKO1231-32-02 04:57:00 Test Item Value Reference Range Interpretation Comments Creatinine Lvl (test code = Creatinine 1.10 0.50-1.40 Lvl) [facility] CampusRakutenATRI[facility] B[facility] MED[facility] CENTERZTANB5365-03-78 04:57:00 Test Item Value Reference Range Interpretation Comments Sodium Lvl (test code = Sodium Lvl) 138 135-145 [facility] CampusRakutenAMANDA VILLE [address]GDYJD4819-98-80 04:57:00 Test Item Value Reference Range Interpretation Comments Potassium Lvl (test code = Potassium 3.1 3.5-5.1 Lvl) [facility] CampusParametric Sound UGOJO4210-68-44 04:57:00 Test Item Value Reference Range Interpretation Comments Chloride Lvl (test code = Chloride Lvl) 106 95-109 [facility] CampusRakutenATRIUM HEALTH WA[facility] BAP[facility] MED[facility] CENTERCVOCL2479-95-50 04:57:00 Test Item Value Reference Range Interpretation Comments CO2 (test code = CO2) 27 24-32 [place] 398970-08-16 04:57:00 Test Item Value Reference Range Interpretation Comments Calcium Lvl (test code = Calcium Lvl) 8.9 8.5-10.5 [facility] CampusRakutenATRIUM HE[facility] WA[facility] BAP[facility] MEDICAL CENTERULANX3389-30-00 04:57:00 Test Item Value Reference Range Interpretation Comments Albumin Lvl (test code = Albumin Lvl) 4.2 3.5-5.0 [facility] CampusRakutenATRI[facility] B[facility] MED[facility] CENTERFJDNY1561-50-29 04:57:00 Test Item Value Reference Range Interpretation Comments AGAP (test code = AGAP) 8.1 10.0-20.0 [facility] CampusRakutenAMANDA VILLE [address]DWZWX2270-25-44 04:57:00 Test Item Value Reference Range Interpretation Comments B/C Ratio (test code = B/C Ratio) 6 1 6-25 [facility] CampusRakutenAMANDA VILLE [address]JZFIP2003-31-99 04:57:00 Test Item Value Reference Range Interpretation Comments eGFR (test code = eGFR) [address] [facility]2020-08-16 04:57:00 Test Item Value Reference Range Interpretation Comments Total Protein (test code = Total 7.6 6.4-8.4 Protein) [place] 398970-08-16 04:57:00 Test Item Value Reference Range Interpretation Comments ALT (test code = ALT) 23 See_Comment [Auto mated message] The system which ge nerated this result transmit abdelrahman reference range : <=65. The reference range was not used to interpr et this result as gurpreet l/abnormal. [facility] [employer] INITZ8911-95-03 04:57:00 Test Item Value Reference Range Interpretation Comments AST (test code = AST) 16 See_Comment [Auto mated message] The system which ge nerated this result transmit abdelrahman reference range : <=37. The reference range was not used to interpr et this result as gurpreet l/abnormal. [facility] [employer] BPTSB7503-51-10 04:57:00 Test Item Value Reference Range Interpretation Comments Alk Phos (test code = Alk Phos) 38 39-136 [facility] LSXPW3474-76-54 04:57:00 Test Item Value Reference Range Interpretation Comments Bili Total (test code = Bili Total) 0.3 0.2-1.3 [facility] IOPMS3497-03-36 04:57:00 Test Item Value Reference Range Interpretation Comments Globulin (test code = Globulin) 3.4 2.7-4.2 [facility]2020-08-16 04:57:00 Test Item Value Reference Range Interpretation Comments A/G Ratio (test code = A/G Ratio) 1.2 1 0.7-1.6 [facility] BivbrrsDLHFBXSTYM4267-08-62 04:57:00 Test Item Value Reference Range Interpretation Comments WBC (test code = WBC) 9.2 3.7-10.4 [facility] KokogifGHSZHIOVSP7513-92-45 04:57:00 Test Item Value Reference Range Interpretation Comments RBC (test code = RBC) 4.56 4.70-6.10 [facility] PkoecsrAXEOFGWVPX7273-88-55 04:57:00 Test Item Value Reference Range Interpretation Comments Hgb (test code = Hgb) 13.3 14.0-18.0 [facility] EqzuoceFZSACMQXJG3335-52-91 04:57:00 Test Item Value Reference Range Interpretation Comments Hct (test code = Hct) 39.7 42.0-54.0 [facility] AyoydscLBUHFQZPHC5164-02-65 04:57:00 Test Item Value Reference Range Interpretation Comments MCV (test code = MCV) 87.0 80.0-94.0 [facility] YsnhmrqPLAAAYPVDA5869-30-38 04:57:00 Test Item Value Reference Range Interpretation Comments MCH (test code = MCH) 29.2 pg 27.0-31.0 [facility] HospitalDswltagQTLOJHRDBA6692-28-04 04:57:00 Test Item Value Reference Range Interpretation Comments MCHC (test code = MCHC) 33.6 32.0-36.0 [facility] HospitalRehocrkBMYYZLEPYL3944-79-11 04:57:00 Test Item Value Reference Range Interpretation Comments RDW (test code = RDW) 13.1 11.5-14.5 [facility] HospitalCbfwmixZMGDLHOVNC6654-74-78 04:57:00 Test Item Value Reference Range Interpretation Comments Platelet (test code = Platelet) 162 133-450 [facility] HospitalWaqfipbRYBNIPEBHV7981-50-32 04:57:00 Test Item Value Reference Range Interpretation Comments MPV (test code = MPV) 9.8 7.4-10.4 [facility] HospitalJspketwXNXONHXTOQ8426-96-76 04:57:00 Test Item Value Reference Range Interpretation Comments Segs (test code = Segs) 79.0 45.0-75.0 [facility] HospitalJmausgtWIYDREFCPQ5876-06-18 04:57:00 Test Item Value Reference Range Interpretation Comments Lymphocytes (test code = Lymphocytes) 13.7 20.0-40.0 [facility] HospitalCiznyzzSKSVWYCJBA2912-62-38 04:57:00 Test Item Value Reference Range Interpretation Comments Monocytes (test code = Monocytes) 6.5 2.0-12.0 [facility] HospitalOsvoomwXKCFOLZPKY7417-09-37 04:57:00 Test Item Value Reference Range Interpretation Comments Eosinophils (test code = 0.5 See_Comment [A utomated message] The Eosinophils) system which ge nerated this result tra nsmitted reference range : <=4.0. The reference r annemarie was not used to int erpret this result as normal/abnormal . [facility] HospitalZljslrsWGIXGDINKY4996-43-36 04:57:00 Test Item Value Reference Range Interpretation Comments Basophils (test code = 0.3 See_Comment [Aut omated message] The Basophils) system which ge nerated this result tra nsmitted reference range : <=1.0. The reference r annemarie was not used to int erpret this result as normal/abnormal . [facility] HospitalSiqkntxACNWWSEQPH1292-54-18 04:57:00 Test Item Value Reference Range Interpretation Comments Neutrophils # (test code = Neutrophils 7.3 1.5-8.1 #) [facility] HospitalSzrjwscXYWBEDAMAT7190-39-98 04:57:00 Test Item Value Reference Range Interpretation Comments Lymphocytes # (test code = Lymphocytes 1.3 1.0-5.5 #) [facility] HospitalYjldpszQRUTTKOARG0413-21-01 04:57:00 Test Item Value Reference Range Interpretation Comments Monocytes # (test code 0.6 See_Comment [Aut omated message] The = Monocytes #) system which generated this result tra nsmitted reference range : <=0.8. The reference r annemarie was not used to int erpret this result as normal/abnormal . [facility]XrxdhfwZASCWAZQYQ1104-02-36 04:57:00 Test Item Value Reference Range Interpretation Comments Ethanol Lvl (test code = Ethanol Lvl) no gt [place] [id number] 04:57:00 Test Item Value Reference Range Interpretation Comments Etoh (%) (test code = Etoh (%)) no gt [place] [id number] 04:57:00 Test Item Value Reference Range Interpretation Comments Acetaminoph Lvl (test code (12/14/19 11:57 PM) 10-20 = Acetaminoph Lvl) [facility] HospitalIzkkymxXTHPDICSUZ4092-00-42 04:57:00 Test Item Value Reference Range Interpretation Comments Salicylate Lvl (test 3.4 See_Comment [Autom ated message] The code = Salicylate Lvl) syste m which generated this result tra nsmitted reference range : <=30.0. The reference r annemarie was not used to int erpret this result as normal/abnormal . [facility] [employer] [id number] 04:57:00 Test Item Value Reference Range Interpretation Comments Glucose Lvl (test code = Glucose Lvl) 141 70-99 [facility]Param[facility] FRLDC4311-15-99 04:57:00 Test Item Value Reference Range Interpretation Comments BUN (test code = BUN) 7 7-22 [facility]Param[facility] [id number] 04:57:00 Test Item Value Reference Range Interpretation Comments Creatinine Lvl (test code = Creatinine 1.10 0.50-1.40 Lvl) [facility]Param[facility] ZKOCU2153-80-55 04:57:00 Test Item Value Reference Range Interpretation Comments Sodium Lvl (test code = Sodium Lvl) 138 135-145 [facility] CampusRakutenATRIUM HE[facility] WA[facility] BAP[facility] MEDICAL CENTERVSNED1317-02-54 04:57:00 Test Item Value Reference Range Interpretation Comments Potassium Lvl (test code = Potassium 3.1 3.5-5.1 Lvl) [facility] CampusRakutenAMANDA [place]LE [address]QXTYZ6526-23-50 04:57:00 Test Item Value Reference Range Interpretation Comments Chloride Lvl (test code = Chloride Lvl) 106 95-109 [facility] CampusParam[facility] ECCWM9797-49-00 04:57:00 Test Item Value Reference Range Interpretation Comments CO2 (test code = CO2) 27 24-32 [facility]Param[facility] WHBQO5563-60-16 04:57:00 Test Item Value Reference Range Interpretation Comments Calcium Lvl (test code = Calcium Lvl) 8.9 8.5-10.5 [facility]Param[facility] WSCDG6244-90-87 04:57:00 Test Item Value Reference Range Interpretation Comments Albumin Lvl (test code = Albumin Lvl) 4.2 3.5-5.0 [facility] CampusParam[facility] RUFXC6825-52-23 04:57:00 Test Item Value Reference Range Interpretation Comments AGAP (test code = AGAP) 8.1 10.0-20.0 [facility]Param[facility] VAQUQ9350-15-93 04:57:00 Test Item Value Reference Range Interpretation Comments B/C Ratio (test code = B/C Ratio) 6 1 6-25 [facility] CampusRakutenJASON [place]LE [address]131BIFHK7251-38-46 04:57:00 Test Item Value Reference Range Interpretation Comments eGFR (test code = eGFR) 89 [facility] CampusRakutenAMANDA [place]LE [address]AYQMD8839-47-76 04:57:00 Test Item Value Reference Range Interpretation Comments Total Protein (test code = Total 7.6 6.4-8.4 Protein) [facility]Param[facility] EBFYY6662-31-54 04:57:00 Test Item Value Reference Range Interpretation Comments ALT (test code = ALT) 23 See_Comment [Auto mated message] The system which ge nerated this result transmit abdelrahman reference range : <=65. The reference range was not used to interpr et this result as gurpreet l/abnormal. [facility]Param[facility] FWPBO6480-40-01 04:57:00 Test Item Value Reference Range Interpretation Comments AST (test code = AST) 16 See_Comment [Auto mated message] The system which ge nerated this result transmit abdelrahman reference range : <=37. The reference range was not used to interpr et this result as gurpreet l/abnormal. [facility]Param[facility] SYAAK5569-95-42 04:57:00 Test Item Value Reference Range Interpretation Comments Alk Phos (test code = Alk Phos) 38 39-[address] [facility]2020-08-16 04:57:00 Test Item Value Reference Range Interpretation Comments Bili Total (test code = Bili Total) 0.3 0.2-1.3 [facility] HospitalDuvas Technologies LVHNG2037-31-33 04:57:00 Test Item Value Reference Range Interpretation Comments Globulin (test code = Globulin) 3.4 2.7-4.2 [facility]Param[facility] [id number] 04:57:00 Test Item Value Reference Range Interpretation Comments A/G Ratio (test code = A/G Ratio) 1.2 1 0.7-1.6 [facility] CampusCdnnpzsKYTAKHJXVM8574-81-64 04:57:00 Test Item Value Reference Range Interpretation Comments WBC (test code = WBC) 9.2 3.7-10.4 [facility] HospitalNpwuxqaIKTGNIEOAH4717-51-40 04:57:00 Test Item Value Reference Range Interpretation Comments RBC (test code = RBC) 4.56 4.70-6.10 [facility] CampusOtrtgtbRVABNUFAZO1305-00-74 04:57:00 Test Item Value Reference Range Interpretation Comments Hgb (test code = Hgb) 13.3 14.0-18.0 [facility] HospitalSsnngcaMQAFRWIOMI3656-15-67 04:57:00 Test Item Value Reference Range Interpretation Comments Hct (test code = Hct) 39.7 42.0-54.0 [facility] HospitalGqdixnzFOEOGDAETY6466-23-10 04:57:00 Test Item Value Reference Range Interpretation Comments MCV (test code = MCV) 87.0 80.0-94.0 [facility] HospitalWgdxlveFJKIQMIZHE3819-01-32 04:57:00 Test Item Value Reference Range Interpretation Comments MCH (test code = MCH) 29.2 pg 27.0-31.0 [facility] HospitalWqsjymwXRRJTONCNT4990-22-15 04:57:00 Test Item Value Reference Range Interpretation Comments MCHC (test code = MCHC) 33.6 32.0-36.0 [facility] HospitalVluofldQNHCAAYCRD0802-78-14 04:57:00 Test Item Value Reference Range Interpretation Comments RDW (test code = RDW) 13.1 11.5-14.5 [place] 484430-08-16 04:57:00 Test Item Value Reference Range Interpretation Comments Platelet (test code = Platelet) 162 133-450 [facility] HospitalBatlajsONTUZGRCPU6087-26-29 04:57:00 Test Item Value Reference Range Interpretation Comments MPV (test code = MPV) 9.8 7.4-10.4 [facility] HospitalUdlakwvEFYKWNZJNE0405-44-02 04:57:00 Test Item Value Reference Range Interpretation Comments Segs (test code = Segs) 79.0 45.0-75.0 [facility] HospitalImnnkasFHESSTFBNA1472-90-70 04:57:00 Test Item Value Reference Range Interpretation Comments Lymphocytes (test code = Lymphocytes) 13.7 20.0-40.0 [place] 484430-08-16 04:57:00 Test Item Value Reference Range Interpretation Comments Monocytes (test code = Monocytes) 6.5 2.0-12.0 [facility] HospitalCdanaqhCVMKJCLDUF2550-99-90 04:57:00 Test Item Value Reference Range Interpretation Comments Eosinophils (test code = 0.5 See_Comment [A utomated message] The Eosinophils) system which ge nerated this result tra nsmitted reference range : <=4.0. The reference r annemarie was not used to int erpret this result as normal/abnormal . [facility] HospitalFvknahcYPUPHUWYUO3306-74-04 04:57:00 Test Item Value Reference Range Interpretation Comments Basophils (test code = 0.3 See_Comment [Aut omated message] The Basophils) system which ge nerated this result tra nsmitted reference range : <=1.0. The reference r annemarie was not used to int erpret this result as normal/abnormal . [facility] HospitalSdfmkbbIWRVGUNDQP7096-48-08 04:57:00 Test Item Value Reference Range Interpretation Comments Neutrophils # (test code = Neutrophils 7.3 1.5-8.1 #) [facility] HospitalGtsuwufJFUINEIARK3660-88-74 04:57:00 Test Item Value Reference Range Interpretation Comments Lymphocytes # (test code = Lymphocytes 1.3 1.0-5.5 #) [place] 484430-08-16 04:57:00 Test Item Value Reference Range Interpretation Comments Monocytes # (test code 0.6 See_Comment [Aut omated message] The = Monocytes #) system which generated this result tra nsmitted reference range : <=0.8. The reference r annemarie was not used to int erpret this result as normal/abnormal . [facility] IjcclxgTOSBXTOEFD2514-75-71 04:57:00 Test Item Value Reference Range Interpretation Comments Ethanol Lvl (test code = Ethanol Lvl) no gt [facility] CampusPxrtaafBODVMRFNEX9368-95-83 04:57:00 Test Item Value Reference Range Interpretation Comments Etoh (%) (test code = Etoh (%)) no gt [facility] CampusNxsqscrKEZGBYYVUW1886-76-63 04:57:00 Test Item Value Reference Range Interpretation Comments Acetaminoph Lvl (test code (12/14/19 11:57 PM) 10- = Acetaminoph Lvl) [facility] CampusFjebcwcKPTKEFJHDW9705-35-72 04:57:00 Test Item Value Reference Range Interpretation Comments Salicylate Lvl (test 3.4 See_Comment [Autom ated message] The code = Salicylate Lvl) syste m which generated this result tra nsmitted reference range : <=30.0. The reference r annemarie was not used to int erpret this result as normal/abnormal . [facility] HospitalCARDIAC DWWECPU6849-45-32 13:17:00 Test Item Value Reference Range Interpretation Comments Total CK (test code = Total CK) 815 12-191 [facility] CampusCblowbnTGOWSRPTBBVG0546-13-20 13:17:00 Test Item Value Reference Range Interpretation Comments AGAP (test code = AGAP) 14.8 10.0-20.0 [facility] CampusEcmdikiLPXZFGLJHJPW7714-84-93 13:17:00 Test Item Value Reference Range Interpretation Comments eGFR (test code = eGFR) 93 [facility] CampusYjhbpuxVRVQQWHLOKQC5349-53-31 13:17:00 Test Item Value Reference Range Interpretation Comments Creatinine Lvl (test code = Creatinine 1.07 0.50-1.40 Lvl) [facility] CampusLyyxwmvILGDOWIIXALE3755-78-05 13:17:00 Test Item Value Reference Range Interpretation Comments Sodium Lvl (test code = Sodium Lvl) 135 135-145 [facility] CampusNpkpobhISSUNTFVJXGI0692-04-71 13:17:00 Test Item Value Reference Range Interpretation Comments Potassium Lvl (test code = Potassium 3.8 3.5-5.1 Lvl) [facility]FaufbhzVKIZHUFYWXHE5511-78-15 13:17:00 Test Item Value Reference Range Interpretation Comments Calcium Lvl (test code = Calcium Lvl) 9.3 8.5-10.5 [facility]WestWyyyplbARGONWLAJHZW0436-70-29 13:17:00 Test Item Value Reference Range Interpretation Comments CO2 (test code = CO2) 23 24-32 [facility]WestStmcspbKMQYQUPNUQIX4518-64-02 13:17:00 Test Item Value Reference Range Interpretation Comments Chloride Lvl (test code = Chloride Lvl) 101 95-109 [facility]WestVjefmkpUAXQWJVMCZUJ6356-89-19 13:17:00 Test Item Value Reference Range Interpretation Comments Glucose Lvl (test code = Glucose Lvl) 94 70-99 [facility]WestBnxkvviSAKFTNXDQAZV1261-87-80 13:17:00 Test Item Value Reference Range Interpretation Comments BUN (test code = BUN) 17 7-22 [facility] HospitalAlkoyrxCKEFVDFIHD4141-31-10 13:17:00 Test Item Value Reference Range Interpretation Comments MCHC (test code = MCHC) 33.6 32.0-36.0 [facility] HospitalAhucofdOCETHATOHD9479-29-83 13:17:00 Test Item Value Reference Range Interpretation Comments RDW (test code = RDW) 14.7 11.5-14.5 [facility] HospitalQjnzissWYWNQGLQOZ6874-45-10 13:17:00 Test Item Value Reference Range Interpretation Comments MCH (test code = MCH) 27.9 pg 27.0-31.0 [facility] HospitalDytxqmoOSOWOGKFJE2221-96-78 13:17:00 Test Item Value Reference Range Interpretation Comments MCV (test code = MCV) 83.1 80.0-94.0 [facility] HospitalSletqvmCSWJVCLARN5653-14-41 13:17:00 Test Item Value Reference Range Interpretation Comments MPV (test code = MPV) 9.9 7.4-10.4 [facility] HospitalComgjyvFRYPUWGANU2646-45-73 13:17:00 Test Item Value Reference Range Interpretation Comments Platelet (test code = Platelet) 165 133-450 [facility] HospitalWdkwhqkSBHBXFFLHZ6289-58-15 13:17:00 Test Item Value Reference Range Interpretation Comments RBC (test code = RBC) 4.63 4.70-6.10 [facility] HospitalDsaffqqCUPTHAWDKR1650-01-58 13:17:00 Test Item Value Reference Range Interpretation Comments Hgb (test code = Hgb) 12.9 14.0-18.0 [facility] HospitalYscedxjHUIVKKVJKD6852-41-51 13:17:00 Test Item Value Reference Range Interpretation Comments Hct (test code = Hct) 38.4 42.0-54.0 [facility] HospitalHyyitkkBGUFSCAVAP4135-23-60 13:17:00 Test Item Value Reference Range Interpretation Comments WBC (test code = WBC) 8.2 3.7-10.4 [facility] HospitalGqljvkeRXJUQRVSMC4008-76-98 13:17:00 Test Item Value Reference Range Interpretation Comments Monocytes # (test code 0.9 See_Comment [Aut omated message] The = Monocytes #) system which generated this result tra nsmitted reference range : <=0.8. The reference r annemarie was not used to int erpret this result as normal/abnormal . [facility] HospitalPsayrszRISPJNHGNO6587-08-03 13:17:00 Test Item Value Reference Range Interpretation Comments Eosinophils # (test code 0.1 See_Comment [A utomated message] The = Eosinophils #) system whic h generated this result tra nsmitted reference range : <=0.5. The reference r annemarie was not used to int erpret this result as normal/abnormal . [facility] HospitalHpaiyrxXDZDZAUEZC2736-88-29 13:17:00 Test Item Value Reference Range Interpretation Comments Lymphocytes # (test code = Lymphocytes 1.1 1.0-5.5 #) [facility] HospitalOjntwhhSAITTACZYC3740-63-57 13:17:00 Test Item Value Reference Range Interpretation Comments Neutrophils # (test code = Neutrophils 6.1 1.5-8.1 #) [facility] HospitalBltwxlqDXLIBZOGQF8665-22-51 13:17:00 Test Item Value Reference Range Interpretation Comments Monocytes (test code = Monocytes) 11.1 2.0-12.0 [facility] HospitalLnankgiMEMOCNSVKD0184-05-18 13:17:00 Test Item Value Reference Range Interpretation Comments Eosinophils (test code = 0.9 See_Comment [A utomated message] The Eosinophils) system which ge nerated this result tra nsmitted reference range : <=4.0. The reference r annemarie was not used to int erpret this result as normal/abnormal . [facility] HospitalIqqdekhGTHYNCVOST1160-10-16 13:17:00 Test Item Value Reference Range Interpretation Comments Basophils (test code = 0.2 See_Comment [Aut omated message] The Basophils) system which ge nerated this result tra nsmitted reference range : <=1.0. The reference r annemarie was not used to int erpret this result as normal/abnormal . [facility]SrdwciyJJBUILXRJC6187-84-25 13:17:00 Test Item Value Reference Range Interpretation Comments Segs (test code = Segs) 74.9 45.0-75.0 [facility] HospitalZljinojYLSIUFKSDB2036-55-59 13:17:00 Test Item Value Reference Range Interpretation Comments Lymphocytes (test code = Lymphocytes) 12.9 20.0-40.0 [facility]NnyzmbsOKITOGQIVM9588-69-94 13:17:00 Test Item Value Reference Range Interpretation Comments Salicylate Lvl (test no gt See_Comment [Autom ated message] The code = Salicylate Lvl) syste m which generated this result tra nsmitted reference range : <=30.0. The reference r annemarie was not used to int erpret this result as normal/abnormal . [facility] HospitalCiknxkfBFHQEPRVMG0038-78-68 13:17:00 Test Item Value Reference Range Interpretation Comments Acetaminoph Lvl (test code = 3 10-20 Acetaminoph Lvl) [facility]CARD[facility] DUIIIOZ8858-42-05 13:17:00 Test Item Value Reference Range Interpretation Comments Total CK (test code = Total CK) 815 12-191 [facility]JdyugyeXEQHEZUHTDEW7860-79-25 13:17:00 Test Item Value Reference Range Interpretation Comments AGAP (test code = AGAP) 14.8 10.0-20.0 [facility] CenterDvocraxQPFWAKKCBCSQ2655-77-37 13:17:00 Test Item Value Reference Range Interpretation Comments eGFR (test code = eGFR) 93 [facility] CenterHffuntzTEADVEUIHCPE2327-03-93 13:17:00 Test Item Value Reference Range Interpretation Comments Creatinine Lvl (test code = Creatinine 1.07 0.50-1.40 Lvl) [facility] CenterSmudskzLUMJKNCVQAMC2540-03-41 13:17:00 Test Item Value Reference Range Interpretation Comments Sodium Lvl (test code = Sodium Lvl) 135 135-145 [facility] CampusVzrbxiyNPYMRIWXHONE2015-11-09 13:17:00 Test Item Value Reference Range Interpretation Comments Potassium Lvl (test code = Potassium 3.8 3.5-5.1 Lvl) [facility]FbxtlfhJFCPULWETTSC8326-83-80 13:17:00 Test Item Value Reference Range Interpretation Comments Calcium Lvl (test code = Calcium Lvl) 9.3 8.5-10.5 [facility]WestUjkgpsoXIZZPHXHRXZX7344-67-86 13:17:00 Test Item Value Reference Range Interpretation Comments CO2 (test code = CO2) 23 24-32 [facility]WestKweqmhzVIKAKYPRAUFJ6505-67-61 13:17:00 Test Item Value Reference Range Interpretation Comments Chloride Lvl (test code = Chloride Lvl) 101 95-109 [facility]WestFesqafcXVRVBQFLWONJ5293-07-84 13:17:00 Test Item Value Reference Range Interpretation Comments Glucose Lvl (test code = Glucose Lvl) 94 70-99 [facility]WestYzvlqzsEDPXSOETXWOJ7083-22-05 13:17:00 Test Item Value Reference Range Interpretation Comments BUN (test code = BUN) 17 7-22 [facility] HospitalJagauccMDGTXQAOWU6913-65-99 13:17:00 Test Item Value Reference Range Interpretation Comments MCHC (test code = MCHC) 33.6 32.0-36.0 [facility] HospitalCiscxpjFNRXQTXPDL1296-67-07 13:17:00 Test Item Value Reference Range Interpretation Comments RDW (test code = RDW) 14.7 11.5-14.5 [facility] HospitalDdthguhXSDCNIVUTA8340-55-19 13:17:00 Test Item Value Reference Range Interpretation Comments MCH (test code = MCH) 27.9 pg 27.0-31.0 [facility] HospitalVhexwjsGBNLWQDDZJ5275-73-18 13:17:00 Test Item Value Reference Range Interpretation Comments MCV (test code = MCV) 83.1 80.0-94.0 [facility] HospitalDhisxlvANWWQCMSQF1568-30-18 13:17:00 Test Item Value Reference Range Interpretation Comments MPV (test code = MPV) 9.9 7.4-10.4 [facility] HospitalYhzltxmIDGMLHIXRX8093-14-47 13:17:00 Test Item Value Reference Range Interpretation Comments Platelet (test code = Platelet) 165 133-450 [facility] HospitalBzihxymLNCVQEHALU7292-72-47 13:17:00 Test Item Value Reference Range Interpretation Comments RBC (test code = RBC) 4.63 4.70-6.10 [place] 695618-12-19 13:17:00 Test Item Value Reference Range Interpretation Comments Hgb (test code = Hgb) 12.9 14.0-18.0 [facility] HospitalZcdykkoDBBCCCBUID4148-17-21 13:17:00 Test Item Value Reference Range Interpretation Comments Hct (test code = Hct) 38.4 42.0-54.0 [facility] HospitalUgdkcnrMWFTIEMYVP2778-21-42 13:17:00 Test Item Value Reference Range Interpretation Comments WBC (test code = WBC) 8.2 3.7-10.4 [facility] HospitalOyukpmmTRRBRPRXGR4941-56-38 13:17:00 Test Item Value Reference Range Interpretation Comments Monocytes # (test code 0.9 See_Comment [Aut omated message] The = Monocytes #) system which generated this result tra nsmitted reference range : <=0.8. The reference r annemarie was not used to int erpret this result as normal/abnormal . [facility] HospitalVpsccphUTSIYUOTXT6193-93-60 13:17:00 Test Item Value Reference Range Interpretation Comments Eosinophils # (test code 0.1 See_Comment [A utomated message] The = Eosinophils #) system whic h generated this result tra nsmitted reference range : <=0.5. The reference r annemarie was not used to int erpret this result as normal/abnormal . [facility] HospitalKpxrszzTLIHNVNKZA1462-36-31 13:17:00 Test Item Value Reference Range Interpretation Comments Lymphocytes # (test code = Lymphocytes 1.1 1.0-5.5 #) [facility] HospitalHqrfeuqHCVVNBHYMM6443-18-36 13:17:00 Test Item Value Reference Range Interpretation Comments Neutrophils # (test code = Neutrophils 6.1 1.5-8.1 #) [facility] HospitalCjzddmhLEYKUTOVXD9304-91-92 13:17:00 Test Item Value Reference Range Interpretation Comments Monocytes (test code = Monocytes) 11.1 2.0-12.0 [facility] HospitalPhcchszLFCQEPOJDP8034-23-61 13:17:00 Test Item Value Reference Range Interpretation Comments Eosinophils (test code = 0.9 See_Comment [A utomated message] The Eosinophils) system which ge nerated this result tra nsmitted reference range : <=4.0. The reference r annemarie was not used to int erpret this result as normal/abnormal . [place] [address]-12-19 13:17:00 Test Item Value Reference Range Interpretation Comments Basophils (test code = 0.2 See_Comment [Aut omated message] The Basophils) system which ge nerated this result tra nsmitted reference range : <=1.0. The reference r annemarie was not used to int erpret this result as normal/abnormal . [facility] HospitalRoikcrmVHIIVSYGAN5165-64-39 13:17:00 Test Item Value Reference Range Interpretation Comments Segs (test code = Segs) 74.9 45.0-75.0 [facility] HospitalDjpyscoWIPOUAFRVS5101-49-18 13:17:00 Test Item Value Reference Range Interpretation Comments Lymphocytes (test code = Lymphocytes) 12.9 20.0-40.0 [facility] HospitalSriwfnwXBFIWCZIGH2105-65-85 13:17:00 Test Item Value Reference Range Interpretation Comments Salicylate Lvl (test no gt See_Comment [Autom ated message] The code = Salicylate Lvl) syste m which generated this result tra nsmitted reference range : <=30.0. The reference r annemarie was not used to int erpret this result as normal/abnormal . [facility] HospitalQpucgqeKUSFRSNKOJ6597-55-06 13:17:00 Test Item Value Reference Range Interpretation Comments Acetaminoph Lvl (test code = 3 10-20 Acetaminoph Lvl) [facility] HospitalCARDIAC ATYMRHX3255-32-99 13:17:00 Test Item Value Reference Range Interpretation Comments Total CK (test code = Total CK) 815 12-191 [facility] CampusSxwzskvPPLFRZWWPASZ3649-74-40 13:17:00 Test Item Value Reference Range Interpretation Comments AGAP (test code = AGAP) 14.8 10.0-20.0 [facility] CampusEoxdnxoLUYWJPDELOYP4020-63-21 13:17:00 Test Item Value Reference Range Interpretation Comments eGFR (test code = eGFR) 93 [facility] CampusIswnfjrBDCHDZQZPRIW2883-15-98 13:17:00 Test Item Value Reference Range Interpretation Comments Creatinine Lvl (test code = Creatinine 1.07 0.50-1.40 Lvl) [facility] CampusWarccoxZNHGGGABHWDD4022-91-66 13:17:00 Test Item Value Reference Range Interpretation Comments Sodium Lvl (test code = Sodium Lvl) 135 135-145 [facility] CampusFzvtpmcCARBQOJRZMCV8689-26-73 13:17:00 Test Item Value Reference Range Interpretation Comments Potassium Lvl (test code = Potassium 3.8 3.5-5.1 Lvl) [facility]WestViqsbnvRZXJYHNQGGEO3721-54-06 13:17:00 Test Item Value Reference Range Interpretation Comments Calcium Lvl (test code = Calcium Lvl) 9.3 8.5-10.5 [facility]WestJdsiygqAKRVXMZKZSMD9823-00-38 13:17:00 Test Item Value Reference Range Interpretation Comments CO2 (test code = CO2) 23 24-32 [facility]WestTymeqpeSRUYKCNSBWOD1119-06-19 13:17:00 Test Item Value Reference Range Interpretation Comments Chloride Lvl (test code = Chloride Lvl) 101 95-109 [facility]WestWvcodypSMQWJQAFFVGP6695-35-08 13:17:00 Test Item Value Reference Range Interpretation Comments Glucose Lvl (test code = Glucose Lvl) 94 70-99 [facility]WestUpvieomMHZXVDVOMMQU8528-94-11 13:17:00 Test Item Value Reference Range Interpretation Comments BUN (test code = BUN) 17 7-22 [facility] HospitalKdojugfUYCZEDHWXE1692-30-85 13:17:00 Test Item Value Reference Range Interpretation Comments MCHC (test code = MCHC) 33.6 32.0-36.0 [facility] HospitalDubypjqCHILIJDDAP5288-72-30 13:17:00 Test Item Value Reference Range Interpretation Comments RDW (test code = RDW) 14.7 11.5-14.5 [facility] HospitalBqhalohELCJEOMABH6300-56-00 13:17:00 Test Item Value Reference Range Interpretation Comments MCH (test code = MCH) 27.9 pg 27.0-31.0 [facility] HospitalPzlrpggCELZJBCRVT6162-09-80 13:17:00 Test Item Value Reference Range Interpretation Comments MCV (test code = MCV) 83.1 80.0-94.0 [facility] HospitalZwkutwmVOQITDGTIL3984-85-48 13:17:00 Test Item Value Reference Range Interpretation Comments MPV (test code = MPV) 9.9 7.4-10.4 [facility] HospitalJnfbmfeLLZCFMFTSL4160-39-24 13:17:00 Test Item Value Reference Range Interpretation Comments Platelet (test code = Platelet) 165 133-450 [facility] HospitalTgorbqqXKDSRENLGF3142-17-10 13:17:00 Test Item Value Reference Range Interpretation Comments RBC (test code = RBC) 4.63 4.70-6.10 [facility] HospitalQxaahmaJRFLZJRXXY0667-38-36 13:17:00 Test Item Value Reference Range Interpretation Comments Hgb (test code = Hgb) 12.9 14.0-18.0 [facility] HospitalOaciddhWYLVPBGEGB2378-60-18 13:17:00 Test Item Value Reference Range Interpretation Comments Hct (test code = Hct) 38.4 42.0-54.0 [facility] HospitalFmrlrpcSQOHQDZKHM4789-89-36 13:17:00 Test Item Value Reference Range Interpretation Comments WBC (test code = WBC) 8.2 3.7-10.4 [facility] HospitalQbtwotePKGPZQSDVQ8293-83-75 13:17:00 Test Item Value Reference Range Interpretation Comments Monocytes # (test code 0.9 See_Comment [Aut omated message] The = Monocytes #) system which generated this result tra nsmitted reference range : <=0.8. The reference r annemarie was not used to int erpret this result as normal/abnormal . [facility] HospitalKkorchwFEWDWFLLHF6011-62-00 13:17:00 Test Item Value Reference Range Interpretation Comments Eosinophils # (test code 0.1 See_Comment [A utomated message] The = Eosinophils #) system whic h generated this result tra nsmitted reference range : <=0.5. The reference r annemarie was not used to int erpret this result as normal/abnormal . [facility] HospitalQjfenxkXRPYZHWGHS0761-33-84 13:17:00 Test Item Value Reference Range Interpretation Comments Lymphocytes # (test code = Lymphocytes 1.1 1.0-5.5 #) [facility] HospitalWniuuzyDLAXUFNSRH0652-59-35 13:17:00 Test Item Value Reference Range Interpretation Comments Neutrophils # (test code = Neutrophils 6.1 1.5-8.1 #) [facility] HospitalVfnovltCRBOMELWCF5344-00-80 13:17:00 Test Item Value Reference Range Interpretation Comments Monocytes (test code = Monocytes) 11.1 2.0-12.0 [facility] HospitalNenzbvlEJXAOQZEUN6447-83-98 13:17:00 Test Item Value Reference Range Interpretation Comments Eosinophils (test code = 0.9 See_Comment [A utomated message] The Eosinophils) system which ge nerated this result tra nsmitted reference range : <=4.0. The reference r annemarie was not used to int erpret this result as normal/abnormal . [place] [address]-12-19 13:17:00 Test Item Value Reference Range Interpretation Comments Basophils (test code = 0.2 See_Comment [Aut omated message] The Basophils) system which ge nerated this result tra nsmitted reference range : <=1.0. The reference r annemarie was not used to int erpret this result as normal/abnormal . [facility] HospitalYjggxerFOBXNAMAUJ8710-42-72 13:17:00 Test Item Value Reference Range Interpretation Comments Segs (test code = Segs) 74.9 45.0-75.0 [facility] HospitalOwgrrmmBVQOEEUYUK4247-61-00 13:17:00 Test Item Value Reference Range Interpretation Comments Lymphocytes (test code = Lymphocytes) 12.9 20.0-40.0 [facility] HospitalAqfbmyyOKFDOLCHPR2080-92-72 13:17:00 Test Item Value Reference Range Interpretation Comments Salicylate Lvl (test no gt See_Comment [Autom ated message] The code = Salicylate Lvl) syste m which generated this result tra nsmitted reference range : <=30.0. The reference r annemarie was not used to int erpret this result as normal/abnormal . [facility] HospitalSronagpTGDQXVSYTF8175-57-23 13:17:00 Test Item Value Reference Range Interpretation Comments Acetaminoph Lvl (test code = 3 10-20 Acetaminoph Lvl) [facility] HospitalCARDIAC FWBKDNN0379-86-55 10:11:00 Test Item Value Reference Range Interpretation Comments Troponin-I (test code no gt See_Comment [Auto mated message] The = Troponin-I) system which g enerated this result transmit abdelrahman reference range : <=0.40. The reference r annemarie was not used to interpr et this result as gurpreet l/abnormal. [facility] CampusannCHEM FCMDH5024-43-53 10:11:00 Test Item Value Reference Range Interpretation Comments Phosphorus (test code = Phosphorus) 3.7 2.5-4.5 [facility] CampusannCHEM FUDEI7610-10-90 10:11:00 Test Item Value Reference Range Interpretation Comments Magnesium Lvl (test code = Magnesium 2.1 1.8-2.4 Lvl) [facility] CampusIbfwicdRVLYIZNHEPFM8526-13-38 10:11:00 Test Item Value Reference Range Interpretation Comments AGAP (test code = AGAP) 11.0 10.0-20.0 [facility]WestZuzvqblQMRQPTDUGQVU8381-54-33 10:11:00 Test Item Value Reference Range Interpretation Comments Creatinine Lvl (test code = Creatinine 0.90 0.50-1.40 Lvl) [facility]WestDjdfxvpNBKFZMLPHOSX9071-21-61 10:11:00 Test Item Value Reference Range Interpretation Comments eGFR (test code = eGFR) 114 [facility]WestUiamucdZZZJGIRMRMMM7054-17-54 10:11:00 Test Item Value Reference Range Interpretation Comments Calcium Lvl (test code = Calcium Lvl) 8.2 8.5-10.5 [facility]WestFtbewucWQMNDHOTGNOU5733-06-86 10:11:00 Test Item Value Reference Range Interpretation Comments CO2 (test code = CO2) 25 24-32 [facility]WestAsxposbSFNBUULGBEJU4827-91-59 10:11:00 Test Item Value Reference Range Interpretation Comments Chloride Lvl (test code = Chloride Lvl) 108 95-109 [facility]WestQzdcwyqFGQSBWWEQEFZ6864-56-38 10:11:00 Test Item Value Reference Range Interpretation Comments Potassium Lvl (test code = Potassium 4.0 3.5-5.1 Lvl) [facility]WestIfilvzuHVQZBONPXEWA9536-77-84 10:11:00 Test Item Value Reference Range Interpretation Comments Sodium Lvl (test code = Sodium Lvl) 140 135-145 [facility]WestHssviloQDVLBXBDDOHU6159-48-21 10:11:00 Test Item Value Reference Range Interpretation Comments BUN (test code = BUN) 11 7-22 [facility]WestDthrszkWFTILLDUVNNT4493-94-42 10:11:00 Test Item Value Reference Range Interpretation Comments Glucose Lvl (test code = Glucose Lvl) 85 70-99 [facility] HospitalWuqhwswMYQUMEOHYH5612-53-98 10:11:00 Test Item Value Reference Range Interpretation Comments MCH (test code = MCH) 27.9 pg 27.0-31.0 [facility] HospitalUdbjwnqZTCIBZLKBX7000-14-55 10:11:00 Test Item Value Reference Range Interpretation Comments MCHC (test code = MCHC) 33.5 32.0-36.0 [facility] HospitalQgjgbbqROAABBEOHA3070-08-19 10:11:00 Test Item Value Reference Range Interpretation Comments Hct (test code = Hct) 36.7 42.0-54.0 [facility] HospitalGzvglktLUUCSFQFXN0577-27-87 10:11:00 Test Item Value Reference Range Interpretation Comments MCV (test code = MCV) 83.1 80.0-94.0 [facility] HospitalBbqesevHJMLSJFCTE1636-07-71 10:11:00 Test Item Value Reference Range Interpretation Comments RBC (test code = RBC) 4.42 4.70-6.10 [facility] HospitalTsabqgiNBFLBKZSPR3686-95-79 10:11:00 Test Item Value Reference Range Interpretation Comments Hgb (test code = Hgb) 12.3 14.0-18.0 [facility] HospitalZbowpmiJLJXEATSPI4019-63-43 10:11:00 Test Item Value Reference Range Interpretation Comments WBC (test code = WBC) 8.5 3.7-10.4 [facility] HospitalNvfewpbTUTOYJNKUI8036-58-15 10:11:00 Test Item Value Reference Range Interpretation Comments MPV (test code = MPV) 9.5 7.4-10.4 [facility] HospitalQutlmhlDWJKUISYUX6777-59-32 10:11:00 Test Item Value Reference Range Interpretation Comments RDW (test code = RDW) 14.4 11.5-14.5 [facility] HospitalDctiuyrCCYCWKCFUZ3407-65-82 10:11:00 Test Item Value Reference Range Interpretation Comments Platelet (test code = Platelet) 164 133-450 [facility] HospitalKcfnldyHFEOVPEWYW6067-29-54 10:11:00 Test Item Value Reference Range Interpretation Comments Lymphocytes # (test code = Lymphocytes 1.2 1.0-5.5 #) [facility] HospitalKyjbeuyYVNTGFRWIW4748-66-50 10:11:00 Test Item Value Reference Range Interpretation Comments Monocytes # (test code 0.6 See_Comment [Aut omated message] The = Monocytes #) system which generated this result tra nsmitted reference range : <=0.8. The reference r annemarie was not used to int erpret this result as normal/abnormal . [facility] HospitalSjozbtnNHZPMPIIDO9096-12-56 10:11:00 Test Item Value Reference Range Interpretation Comments Eosinophils # (test code 0.2 See_Comment [A utomated message] The = Eosinophils #) system whic h generated this result tra nsmitted reference range : <=0.5. The reference r annemarie was not used to int erpret this result as normal/abnormal . [facility] HospitalTidqogrVEBBXJGLLC4804-05-60 10:11:00 Test Item Value Reference Range Interpretation Comments Basophils # (test code 0.0 See_Comment [Aut omated message] The = Basophils #) system which generated this result tra nsmitted reference range : <=0.2. The reference r annemarie was not used to int erpret this result as normal/abnormal . [facility] HospitalOlubbssZWPHTPHDDX0058-29-38 10:11:00 Test Item Value Reference Range Interpretation Comments Eosinophils (test code = 2.3 See_Comment [A utomated message] The Eosinophils) system which ge nerated this result tra nsmitted reference range : <=4.0. The reference r annemarie was not used to int erpret this result as normal/abnormal . [facility] HospitalFgsjhctFBCYDCRWJH3884-42-80 10:11:00 Test Item Value Reference Range Interpretation Comments Basophils (test code = 0.3 See_Comment [Aut omated message] The Basophils) system which ge nerated this result tra nsmitted reference range : <=1.0. The reference r annemarie was not used to int erpret this result as normal/abnormal . [facility] HospitalYdhoamqMQUGFJRPZC6364-31-44 10:11:00 Test Item Value Reference Range Interpretation Comments Neutrophils # (test code = Neutrophils 6.5 1.5-8.1 #) [facility] HospitalCqbedhrZCJXSZQBVH1588-97-28 10:11:00 Test Item Value Reference Range Interpretation Comments Lymphocytes (test code = Lymphocytes) 14.5 20.0-40.0 [facility] HospitalTrogsaxVDRCWOTXWT1280-80-51 10:11:00 Test Item Value Reference Range Interpretation Comments Monocytes (test code = Monocytes) 6.7 2.0-12.0 [facility] HospitalBzijaecHJYAQPRDJJ2396-55-28 10:11:00 Test Item Value Reference Range Interpretation Comments Segs (test code = Segs) 76.2 45.0-75.0 [facility]ATHY[facility] VMQDYJF5973-65-30 10:11:00 Test Item Value Reference Range Interpretation Comments Ca Norm WB (test code = Ca Norm WB) 1.13 1.05-1.25 [facility]RO[facility] TUMDOWI3036-47-33 10:11:00 Test Item Value Reference Range Interpretation Comments Ca Ion WB (test code = Ca Ion WB) 1.17 1.05-1.25 [facility] HospitalCARDIAC VPNLNMY1790-76-11 10:11:00 Test Item Value Reference Range Interpretation Comments Troponin-I (test code no gt See_Comment [Auto mated message] The = Troponin-I) system which g enerated this result transmit abdelrahman reference range : <=0.40. The reference r annemarie was not used to interpr et this result as gurpreet l/abnormal. [facility] HospitalDuvas Technologies OLGYD8308-42-13 10:11:00 Test Item Value Reference Range Interpretation Comments Phosphorus (test code = Phosphorus) 3.7 2.5-4.5 [facility] HospitalDuvas Technologies [id number] 10:11:00 Test Item Value Reference Range Interpretation Comments Magnesium Lvl (test code = Magnesium 2.1 1.8-2.4 Lvl) [facility]WestSbwowhaPJUBHTPCBBLO5528-38-18 10:11:00 Test Item Value Reference Range Interpretation Comments AGAP (test code = AGAP) 11.0 10.0-20.0 [facility]ChsuzfoXRCEWEDOMWBN3475-14-93 10:11:00 Test Item Value Reference Range Interpretation Comments Creatinine Lvl (test code = Creatinine 0.90 0.50-1.40 Lvl) [facility]WestTorgzuwLUFINBPLHKGH7761-51-32 10:11:00 Test Item Value Reference Range Interpretation Comments eGFR (test code = eGFR) 114 [facility]WestXzjcvdhLEGUWZINNTNK6230-54-60 10:11:00 Test Item Value Reference Range Interpretation Comments Calcium Lvl (test code = Calcium Lvl) 8.2 8.5-10.5 [facility]WestUepmhggNCCBVPOCGXBQ4493-97-54 10:11:00 Test Item Value Reference Range Interpretation Comments CO2 (test code = CO2) 25 24-32 [facility]WestVkrommuXRDYIXROYJZV1646-89-85 10:11:00 Test Item Value Reference Range Interpretation Comments Chloride Lvl (test code = Chloride Lvl) 108 95-109 [facility]WestFxcjwnxCHSMHNOPYDZP0190-05-82 10:11:00 Test Item Value Reference Range Interpretation Comments Potassium Lvl (test code = Potassium 4.0 3.5-5.1 Lvl) [facility]WestGwnotctKXZJNFKTYPTL3166-77-47 10:11:00 Test Item Value Reference Range Interpretation Comments Sodium Lvl (test code = Sodium Lvl) 140 135-145 [facility]WestMiomtkfOJLCECEDIUDJ2661-85-93 10:11:00 Test Item Value Reference Range Interpretation Comments BUN (test code = BUN) 11 7-22 [facility]HxztdiiUMHMBWVRZFEU8782-67-06 10:11:00 Test Item Value Reference Range Interpretation Comments Glucose Lvl (test code = Glucose Lvl) 85 70-99 [facility]EgkpjudTQEUZNNWPR0742-24-04 10:11:00 Test Item Value Reference Range Interpretation Comments MCH (test code = MCH) 27.9 pg 27.0-31.0 [facility] HospitalNfmypddDXKURVNDXW6700-98-20 10:11:00 Test Item Value Reference Range Interpretation Comments MCHC (test code = MCHC) 33.5 32.0-36.0 [facility] HospitalErwldspZKYEBVRBAJ5010-97-42 10:11:00 Test Item Value Reference Range Interpretation Comments Hct (test code = Hct) 36.7 42.0-54.0 [facility] HospitalQbxqsjnFTBCREEXBQ2202-23-28 10:11:00 Test Item Value Reference Range Interpretation Comments MCV (test code = MCV) 83.1 80.0-94.0 [facility] HospitalDdrvsfcLYDIRJKMVY8023-07-58 10:11:00 Test Item Value Reference Range Interpretation Comments RBC (test code = RBC) 4.42 4.70-6.10 [facility] HospitalAszlvvxGDOQILFNHU6412-26-01 10:11:00 Test Item Value Reference Range Interpretation Comments Hgb (test code = Hgb) 12.3 14.0-18.0 [facility] HospitalLwwtiekUROKJNBWNA2809-18-53 10:11:00 Test Item Value Reference Range Interpretation Comments WBC (test code = WBC) 8.5 3.7-10.4 [facility] HospitalOcvkakxIXPEYMRLYO0708-25-41 10:11:00 Test Item Value Reference Range Interpretation Comments MPV (test code = MPV) 9.5 7.4-10.4 [facility] HospitalQgnpqftLMQRNKZUUV4374-49-61 10:11:00 Test Item Value Reference Range Interpretation Comments RDW (test code = RDW) 14.4 11.5-14.5 [facility] HospitalNkqrvaoAAZRRYLWSE4446-70-41 10:11:00 Test Item Value Reference Range Interpretation Comments Platelet (test code = Platelet) 164 133-450 [facility] HospitalDqkqmmoUEFGHQBZWJ1182-86-63 10:11:00 Test Item Value Reference Range Interpretation Comments Lymphocytes # (test code = Lymphocytes 1.2 1.0-5.5 #) [facility] HospitalYncjcxrKWFTFPMWMW2445-54-65 10:11:00 Test Item Value Reference Range Interpretation Comments Monocytes # (test code 0.6 See_Comment [Aut omated message] The = Monocytes #) system which generated this result tra nsmitted reference range : <=0.8. The reference r annemarie was not used to int erpret this result as normal/abnormal . [facility] HospitalAapkztqCQLSQSWSOI7458-56-05 10:11:00 Test Item Value Reference Range Interpretation Comments Eosinophils # (test code 0.2 See_Comment [A utomated message] The = Eosinophils #) system whic h generated this result tra nsmitted reference range : <=0.5. The reference r annemarie was not used to int erpret this result as normal/abnormal . [facility] HospitalWgtfezpOPXXDNCOUR3999-90-43 10:11:00 Test Item Value Reference Range Interpretation Comments Basophils # (test code 0.0 See_Comment [Aut omated message] The = Basophils #) system which generated this result tra nsmitted reference range : <=0.2. The reference r annemarie was not used to int erpret this result as normal/abnormal . [facility] HospitalGxknenfCFQEAIQYZI7319-54-69 10:11:00 Test Item Value Reference Range Interpretation Comments Eosinophils (test code = 2.3 See_Comment [A utomated message] The Eosinophils) system which ge nerated this result tra nsmitted reference range : <=4.0. The reference r annemarie was not used to int erpret this result as normal/abnormal . [facility] HospitalFnzbwgbILVKQAVXUH5347-07-00 10:11:00 Test Item Value Reference Range Interpretation Comments Basophils (test code = 0.3 See_Comment [Aut omated message] The Basophils) system which ge nerated this result tra nsmitted reference range : <=1.0. The reference r annemarie was not used to int erpret this result as normal/abnormal . [facility] HospitalVwkdlfvWTZPMCZXTW1763-23-12 10:11:00 Test Item Value Reference Range Interpretation Comments Neutrophils # (test code = Neutrophils 6.5 1.5-8.1 #) [facility] HospitalUsgbymjJXOZZECWHR1085-40-76 10:11:00 Test Item Value Reference Range Interpretation Comments Lymphocytes (test code = Lymphocytes) 14.5 20.0-40.0 [facility] HospitalUxfdcscITSKYVMHAP0143-01-17 10:11:00 Test Item Value Reference Range Interpretation Comments Monocytes (test code = Monocytes) 6.7 2.0-12.0 [facility] CampusGackdgtKMMMRMJUEC7398-04-40 10:11:00 Test Item Value Reference Range Interpretation Comments Segs (test code = Segs) 76.2 45.0-75.0 [facility] CampusannPARATHYROID PYZNKKD4310-36-92 10:11:00 Test Item Value Reference Range Interpretation Comments Ca Norm WB (test code = Ca Norm WB) 1.13 1.05-1.25 [facility] CampusannPARATHYROID [id number] 10:11:00 Test Item Value Reference Range Interpretation Comments Ca Ion WB (test code = Ca Ion WB) 1.17 1.05-1.25 [facility] FVTQWYC6607-48-64 10:11:00 Test Item Value Reference Range Interpretation Comments Troponin-I (test code no gt See_Comment [Auto mated message] The = Troponin-I) system which g enerated this result transmit abdelrahman reference range : <=0.40. The reference r annemarie was not used to interpr et this result as gurpreet l/abnormal. [facility] HospitalCHEM [id number] 10:11:00 Test Item Value Reference Range Interpretation Comments Phosphorus (test code = Phosphorus) 3.7 2.5-4.5 [facility] HospitalCHEM [id number] 10:11:00 Test Item Value Reference Range Interpretation Comments Magnesium Lvl (test code = Magnesium 2.1 1.8-2.4 Lvl) [facility] CampusOifqxwzDLIWQBCFNHYX1564-88-47 10:11:00 Test Item Value Reference Range Interpretation Comments AGAP (test code = AGAP) 11.0 10.0-20.0 [facility] CampusDzrjyxyJMERGXDCSBLU0063-11-44 10:11:00 Test Item Value Reference Range Interpretation Comments Creatinine Lvl (test code = Creatinine 0.90 0.50-1.40 Lvl) [facility] CampusYekdscjJLAYFQCXCQDA3073-32-81 10:11:00 Test Item Value Reference Range Interpretation Comments eGFR (test code = eGFR) 114 [facility] CampusQazajwtLVGEYGMADDBV1850-71-79 10:11:00 Test Item Value Reference Range Interpretation Comments Calcium Lvl (test code = Calcium Lvl) 8.2 8.5-10.5 [facility] CampusXvtglafZETTPRZOHIBL3091-91-73 10:11:00 Test Item Value Reference Range Interpretation Comments CO2 (test code = CO2) 25 24-32 [facility]WestRpcunhuVORGLDLERLIY5958-41-62 10:11:00 Test Item Value Reference Range Interpretation Comments Chloride Lvl (test code = Chloride Lvl) 108 95-109 [facility]WestSkrmfleEUNYPQKYAFJT4904-15-61 10:11:00 Test Item Value Reference Range Interpretation Comments Potassium Lvl (test code = Potassium 4.0 3.5-5.1 Lvl) [facility]WestMuecbomDYXCCIDOKQBX7100-50-04 10:11:00 Test Item Value Reference Range Interpretation Comments Sodium Lvl (test code = Sodium Lvl) 140 135-145 [facility]WestAtosutxLXYWTOCKMHXS6941-99-22 10:11:00 Test Item Value Reference Range Interpretation Comments BUN (test code = BUN) 11 7-22 [facility]WestYnxunzxALNHDDRATYPK2918-79-81 10:11:00 Test Item Value Reference Range Interpretation Comments Glucose Lvl (test code = Glucose Lvl) 85 70-99 [facility] HospitalBcmozyyLSRNHVPWOQ0085-43-81 10:11:00 Test Item Value Reference Range Interpretation Comments MCH (test code = MCH) 27.9 pg 27.0-31.0 [facility] HospitalSjwktfqJWRKAPXAUR7307-96-84 10:11:00 Test Item Value Reference Range Interpretation Comments MCHC (test code = MCHC) 33.5 32.0-36.0 [facility] HospitalFzvmeabJWPCTYFZCT9503-56-39 10:11:00 Test Item Value Reference Range Interpretation Comments Hct (test code = Hct) 36.7 42.0-54.0 [facility] HospitalMkachipSYFSHPLKNN8316-68-04 10:11:00 Test Item Value Reference Range Interpretation Comments MCV (test code = MCV) 83.1 80.0-94.0 [facility] HospitalAwnutdoZMNZEHTSTI4645-59-02 10:11:00 Test Item Value Reference Range Interpretation Comments RBC (test code = RBC) 4.42 4.70-6.10 [facility] HospitalJevnfyuYSAFMATBHK9781-81-19 10:11:00 Test Item Value Reference Range Interpretation Comments Hgb (test code = Hgb) 12.3 14.0-18.0 [facility] HospitalOdhxoddBNBFRZLRKY7378-92-61 10:11:00 Test Item Value Reference Range Interpretation Comments WBC (test code = WBC) 8.5 3.7-10.4 [facility] HospitalLtpvcdvRBQHUMPIJQ3209-68-65 10:11:00 Test Item Value Reference Range Interpretation Comments MPV (test code = MPV) 9.5 7.4-10.4 [facility] HospitalPunhpzbADIWAZFINA0126-76-20 10:11:00 Test Item Value Reference Range Interpretation Comments RDW (test code = RDW) 14.4 11.5-14.5 [facility] HospitalSdnrnnsFNSDOOWCID6332-10-76 10:11:00 Test Item Value Reference Range Interpretation Comments Platelet (test code = Platelet) 164 133-450 [facility] HospitalSalobtqBVMSFVOHSY6623-47-94 10:11:00 Test Item Value Reference Range Interpretation Comments Lymphocytes # (test code = Lymphocytes 1.2 1.0-5.5 #) [facility] HospitalVncdcwyEQQDDBAARW2192-29-58 10:11:00 Test Item Value Reference Range Interpretation Comments Monocytes # (test code 0.6 See_Comment [Aut omated message] The = Monocytes #) system which generated this result tra nsmitted reference range : <=0.8. The reference r annemarie was not used to int erpret this result as normal/abnormal . [facility] HospitalBghxtgyEQNOJIVAXS3289-74-24 10:11:00 Test Item Value Reference Range Interpretation Comments Eosinophils # (test code 0.2 See_Comment [A utomated message] The = Eosinophils #) system whic h generated this result tra nsmitted reference range : <=0.5. The reference r annemarie was not used to int erpret this result as normal/abnormal . [facility] HospitalYfgewrwEHONXRHAYL9454-82-45 10:11:00 Test Item Value Reference Range Interpretation Comments Basophils # (test code 0.0 See_Comment [Aut omated message] The = Basophils #) system which generated this result tra nsmitted reference range : <=0.2. The reference r annemarie was not used to int erpret this result as normal/abnormal . [facility] HospitalNfemqymAATEVWWKDS9287-53-21 10:11:00 Test Item Value Reference Range Interpretation Comments Eosinophils (test code = 2.3 See_Comment [A utomated message] The Eosinophils) system which ge nerated this result tra nsmitted reference range : <=4.0. The reference r annemarie was not used to int erpret this result as normal/abnormal . [facility] HospitalSoybsnfLFDAOFOJPY2842-17-17 10:11:00 Test Item Value Reference Range Interpretation Comments Basophils (test code = 0.3 See_Comment [Aut omated message] The Basophils) system which ge nerated this result tra nsmitted reference range : <=1.0. The reference r annemarie was not used to int erpret this result as normal/abnormal . [facility] HospitalJdkygdvRTVAEZTWGN5724-13-30 10:11:00 Test Item Value Reference Range Interpretation Comments Neutrophils # (test code = Neutrophils 6.5 1.5-8.1 #) [facility] HospitalVgfqfyuZTSQIRTHAC4237-66-55 10:11:00 Test Item Value Reference Range Interpretation Comments Lymphocytes (test code = Lymphocytes) 14.5 20.0-40.0 [facility] HospitalSwxqtuzWWGAPNBXHD3536-88-70 10:11:00 Test Item Value Reference Range Interpretation Comments Monocytes (test code = Monocytes) 6.7 2.0-12.0 [facility] HospitalTlfklovOVFPGGGIYA9012-83-59 10:11:00 Test Item Value Reference Range Interpretation Comments Segs (test code = Segs) 76.2 45.0-75.0 [facility]2018-12-14 10:11:00 Test Item Value Reference Range Interpretation Comments Ca Norm WB (test code = Ca Norm WB) 1.13 1.05-1.25 [facility]2018-12-14 10:11:00 Test Item Value Reference Range Interpretation Comments Ca Ion WB (test code = Ca Ion WB) 1.17 1.05-1.25 [facility] AND [id number] 06:21:00 Test Item Value Reference Range Interpretation Comments UA Sq Epi (test code = None Seen (04/13/18 UA Sq Epi) 12:21 AM) [facility] AND [id number] 06:21:00 Test Item Value Reference Range Interpretation Comments UA WBC (test code = 1 See_Comment [Automa abdelrahman message] The UA WBC) system which ge nerated this result transmit abdelrahman reference range : <=5. The reference range was not used to interpr et this result as gurpreet l/abnormal. [facility] AND [id number] 06:21:00 Test Item Value Reference Range Interpretation Comments UA RBC (test code = 1 See_Comment [Automa abdelrahman message] The UA RBC) system which ge nerated this result transmit abdelrahman reference range : <=2. The reference range was not used to interpr et this result as gurpreet l/abnormal. [facility] AND [id number] 06:21:00 Test Item Value Reference Range Interpretation Comments UA [place] Yeast (test code = UA Occasional /HPF [place] Yeast) [facility] AND [id number] 06:21:00 Test Item Value Reference Range Interpretation Comments UA Color (test code = UA Color) Ltyellow [facility] AND [id number] 06:21:00 Test Item Value Reference Range Interpretation Comments UA Spec Grav (test code = UA Spec 1.009 1 Grav) [facility] AND [id number] 06:21:00 Test Item Value Reference Range Interpretation Comments UA Turbidity (test code = Clear (04/13/18 UA Turbidity) 12:21 AM) [facility] AND [id number] 06:21:00 Test Item Value Reference Range Interpretation Comments UA Urobilinogen (test code = UA no gt 0.1-1.0 Urobilinogen) [facility] AND [id number] 06:21:00 Test Item Value Reference Range Interpretation Comments UA Ketones (test code Negative *NA*(04/13/18 = UA Ketones) 12:21 AM) [facility] AND [id number] 06:21:00 Test Item Value Reference Range Interpretation Comments UA Glucose (test code Negative *NA*(04/13/18 = UA Glucose) 12:21 AM) [facility] AND [id number] 06:21:00 Test Item Value Reference Range Interpretation Comments UA Leuk Est (test code Trace *ABN*(04/13/18 = UA Leuk Est) 12:21 AM) [facility] AND [id number] 06:21:00 Test Item Value Reference Range Interpretation Comments UA Nitrite (test code Negative (04/13/18 = UA Nitrite) 12:21 AM) [facility] AND [id number] 06:21:00 Test Item Value Reference Range Interpretation Comments UA Bili (test code = Negative *NA*(04/13/18 UA Bili) 12:21 AM) [facility] AND [id number] 06:21:00 Test Item Value Reference Range Interpretation Comments UA pH (test code = UA pH) 7.0 1 5.0-8.0 [facility] [id number] 06:21:00 Test Item Value Reference Range Interpretation Comments UA Blood (test code = Negative (04/13/18 12:21 [facility]A Blood) AM) [facility] [id number] 06:21:00 Test Item Value Reference Range Interpretation Comments UA Protein (test code Negative (04/13/18 = UA Protein) 12:21 AM) [facility] [id number] 06:21:00 Test Item Value Reference Range Interpretation Comments UA Sq Epi (test code = None Seen (04/13/18 UA Sq Epi) 12:21 AM) [facility] [id number] 06:21:00 Test Item Value Reference Range Interpretation Comments UA WBC (test code = 1 See_Comment [Automa abdelrahman message] The UA WBC) system which ge nerated this result transmit abdelrahman reference range : <=5. The reference range was not used to interpr et this result as gurpreet l/abnormal. [facility] [id number] 06:21:00 Test Item Value Reference Range Interpretation Comments UA RBC (test code = 1 See_Comment [Automa abdelrahman message] The UA RBC) system which ge nerated this result transmit abdelrahman reference range : <=2. The reference range was not used to interpr et this result as gurpreet l/abnormal. [facility] [id number] 06:21:00 Test Item Value Reference Range Interpretation Comments UA [place] Yeast (test code = UA Occasional /HPF [place] Yeast) [facility] [id number] 06:21:00 Test Item Value Reference Range Interpretation Comments UA Color (test code = UA Color) Ltyellow [facility] [id number] 06:21:00 Test Item Value Reference Range Interpretation Comments UA Spec Grav (test code = UA Spec 1.009 1 Grav) [facility] [id number] 06:21:00 Test Item Value Reference Range Interpretation Comments UA Turbidity (test code = Clear (04/13/18 UA Turbidity) 12:21 AM) [facility] [id number] 06:21:00 Test Item Value Reference Range Interpretation Comments UA Urobilinogen (test code = UA no gt 0.1-1.0 Urobilinogen) [facility] [id number] 06:21:00 Test Item Value Reference Range Interpretation Comments UA Ketones (test code Negative *NA*(04/13/18 = UA Ketones) 12:21 AM) [facility] [id number] 06:21:00 Test Item Value Reference Range Interpretation Comments UA Glucose (test code Negative *NA*(04/13/18 = UA Glucose) 12:21 AM) [facility] [id number] 06:21:00 Test Item Value Reference Range Interpretation Comments UA Leuk Est (test code Trace *ABN*(04/13/18 = UA Leuk Est) 12:21 AM) [facility] AND [id number] 06:21:00 Test Item Value Reference Range Interpretation Comments UA Nitrite (test code Negative (04/13/18 = UA Nitrite) 12:21 AM) [facility] AND [id number] 06:21:00 Test Item Value Reference Range Interpretation Comments UA Bili (test code = Negative *NA*(04/13/18 UA Bili) 12:21 AM) [facility] AND [id number] 06:21:00 Test Item Value Reference Range Interpretation Comments UA pH (test code = UA pH) 7.0 1 5.0-8.0 [facility] [id number] 06:21:00 Test Item Value Reference Range Interpretation Comments UA Blood (test code = Negative (04/13/18 12:21 UA Blood) AM) [facility] AND [id number] 06:21:00 Test Item Value Reference Range Interpretation Comments UA Protein (test code Negative (04/13/18 = UA Protein) 12:21 AM) [facility] [id number] 06:21:00 Test Item Value Reference Range Interpretation Comments UA Sq Epi (test code = None Seen (04/13/18 UA Sq Epi) 12:21 AM) [facility] AND [id number] 06:21:00 Test Item Value Reference Range Interpretation Comments UA WBC (test code = 1 See_Comment [Automa abdelrahman message] The UA WBC) system which ge nerated this result transmit abdelrahman reference range : <=5. The reference range was not used to interpr et this result as gurpreet l/abnormal. [facility] AND [id number] 06:21:00 Test Item Value Reference Range Interpretation Comments UA RBC (test code = 1 See_Comment [Automa abdelrahman message] The UA RBC) system which ge nerated this result transmit abdelrahman reference range : <=2. The reference range was not used to interpr et this result as gurpreet l/abnormal. [facility] AND [id number] 06:21:00 Test Item Value Reference Range Interpretation Comments UA T[place] Yeast (test code = UA Occasional /HPF [place] Yeast) [facility] AND [id number] 06:21:00 Test Item Value Reference Range Interpretation Comments UA Color (test code = UA Color) Ltyellow [facility] AND [id number] 06:21:00 Test Item Value Reference Range Interpretation Comments UA Spec Grav (test code = UA Spec 1.009 1 Grav) [facility] AND [id number] 06:21:00 Test Item Value Reference Range Interpretation Comments UA Turbidity (test code = Clear (04/13/18 UA Turbidity) 12:21 AM) [facility] AND [id number] 06:21:00 Test Item Value Reference Range Interpretation Comments UA Urobilinogen (test code = UA no gt 0.1-1.0 Urobilinogen) [facility] AND [id number] 06:21:00 Test Item Value Reference Range Interpretation Comments UA Ketones (test code Negative *NA*(04/13/18 = UA Ketones) 12:21 AM) [facility] AND [id number] 06:21:00 Test Item Value Reference Range Interpretation Comments UA Glucose (test code Negative *NA*(04/13/18 = UA Glucose) 12:21 AM) [facility] AND [id number] 06:21:00 Test Item Value Reference Range Interpretation Comments UA Leuk Est (test code Trace *ABN*(04/13/18 = UA Leuk Est) 12:21 AM) [facility] AND [id number] 06:21:00 Test Item Value Reference Range Interpretation Comments UA Nitrite (test code Negative (04/13/18 = UA Nitrite) 12:21 AM) [facility] [id number] 06:21:00 Test Item Value Reference Range Interpretation Comments UA Bili (test code = Negative *NA*(04/13/18 UA Bili) 12:21 AM) [facility] [id number] 06:21:00 Test Item Value Reference Range Interpretation Comments UA pH (test code = UA pH) 7.0 1 5.0-8.0 [facility] [id number] 06:21:00 Test Item Value Reference Range Interpretation Comments UA Blood (test code = Negative (04/13/18 12:21 UA Blood) AM) [facility] [id number] 06:21:00 Test Item Value Reference Range Interpretation Comments UA Protein (test code Negative (04/13/18 = UA Protein) 12:21 AM) [facility]annCARArtistForceAC [id number] 05:42:00 Test Item Value Reference Range Interpretation Comments Troponin-I (test code no gt See_Comment [Auto mated message] The = Troponin-I) system which g enerated this result transmit abdelrahman reference range : <=0.40. The reference r annemarie was not used to interpr et this result as gurpreet l/abnormal. [id number] 05:42:00 Test Item Value Reference Range Interpretation Comments HIV Ag/Ab 4th Gen Negative *NA*(04/12/18 (test code = HIV 11:42 PM) Ag/Ab 4th Gen) [facility] [employer] [id number] 05:42:00 Test Item Value Reference Range Interpretation Comments Troponin-I (test code no gt See_Comment [Auto mated message] The = Troponin-I) system which g enerated this result transmit abdelrahman reference range : <=0.40. The reference r annemarie was not used to interpr et this result as gurpreet l/abnormal. [facility] [id number] 05:42:00 Test Item Value Reference Range Interpretation Comments HIV Ag/Ab 4th Gen Negative *NA*(04/12/18 (test code = HIV 11:42 PM) Ag/Ab 4th Gen) [facility] YuDoGlobalannCARDIAC [id number] 05:42:00 Test Item Value Reference Range Interpretation Comments Troponin-I (test code no gt See_Comment [Auto mated message] The = Troponin-I) system which g enerated this result transmit abdelrahman reference range : <=0.40. The reference r annemarie was not used to interpr et this result as gurpreet l/abnormal. [id number] 05:42:00 Test Item Value Reference Range Interpretation Comments HIV Ag/Ab 4th Gen Negative *NA*(04/12/18 (test code = HIV 11:42 PM) Ag/Ab 4th Gen) [facility] [id number] 05:18:00 Test Item Value Reference Range Interpretation Comments MRSA by PCR (test Negative (04/12/18 11:18 code = MRSA by PCR) PM) [facility] [id number] 05:18:00 Test Item Value Reference Range Interpretation Comments MRSA by PCR (test Negative (04/12/18 11:18 code = MRSA by PCR) PM) [facility] [id number] 05:18:00 Test Item Value Reference Range Interpretation Comments MRSA by PCR (test Negative (04/12/18 11:18 code = MRSA by PCR) PM) [facility] [id number] 23:22:00 Test Item Value Reference Range Interpretation Comments U Odalys Scr (test code Negative *NA*(04/12/18 = U Odalys Scr) 5:22 PM) [facility] [id number] 23:22:00 Test Item Value Reference Range Interpretation Comments U Benzodiaz Scr (test Negative *NA*(04/12/18 code = U Benzodiaz Scr) 5:22 PM) [facility] [id number] 23:22:00 Test Item Value Reference Range Interpretation Comments U Amph Scr (test code Negative *NA*(04/12/18 = U Amph Scr) 5:22 PM) [facility] [id number] 23:22:00 Test Item Value Reference Range Interpretation Comments U Cocaine Scr (test Negative *NA*(04/12/18 code = U Cocaine Scr) 5:22 PM) [facility] [id number] 23:22:00 Test Item Value Reference Range Interpretation Comments U Opiate Scr (test Negative *NA*(04/12/18 code = U Opiate Scr) 5:22 PM) [facility] [id number] 23:22:00 Test Item Value Reference Range Interpretation Comments UDS Note (test code = See Note (04/12/18 5:22 UDS Note) PM) [facility] [id number] 23:22:00 Test Item Value Reference Range Interpretation Comments U Cannab Scr (test Negative *NA*(04/12/18 code = U Cannab Scr) 5:22 PM) [facility] [id number] 23:22:00 Test Item Value Reference Range Interpretation Comments U Phencyclidine Scr (test Negative code = U Phencyclidine *NA*(04/12/18 5:22 Scr) PM) [facility] [id number] 23:22:00 Test Item Value Reference Range Interpretation Comments U Odalys Scr (test code Negative *NA*(04/12/18 = U Odalys Scr) 5:22 PM) [facility] [id number] 23:22:00 Test Item Value Reference Range Interpretation Comments U Benzodiaz Scr (test Negative *NA*(04/12/18 code = U Benzodiaz Scr) 5:22 PM) [facility] [id number] 23:22:00 Test Item Value Reference Range Interpretation Comments U Amph Scr (test code Negative *NA*(04/12/18 = U Amph Scr) 5:22 PM) [facility] [id number] 23:22:00 Test Item Value Reference Range Interpretation Comments U Cocaine Scr (test Negative *NA*(04/12/18 code = U Cocaine Scr) 5:22 PM) [facility] [id number] 23:22:00 Test Item Value Reference Range Interpretation Comments U Opiate Scr (test Negative *NA*(04/12/18 code = U Opiate Scr) 5:22 PM) [facility] [id number] 23:22:00 Test Item Value Reference Range Interpretation Comments UDS Note (test code = See Note (04/12/18 5:22 UDS Note) PM) [facility] [id number] 23:22:00 Test Item Value Reference Range Interpretation Comments U Cannab Scr (test Negative *NA*(04/12/18 code = U Cannab Scr) 5:22 PM) [facility] [id number] 23:22:00 Test Item Value Reference Range Interpretation Comments U Phencyclidine Scr (test Negative code = U Phencyclidine *NA*(04/12/18 5:22 Scr) PM) [facility] [id number] 23:22:00 Test Item Value Reference Range Interpretation Comments U Odalys Scr (test code Negative *NA*(04/12/18 = U Odalys Scr) 5:22 PM) [facility] [id number] 23:22:00 Test Item Value Reference Range Interpretation Comments U Benzodiaz Scr (test Negative *NA*(04/12/18 code = U Benzodiaz Scr) 5:22 PM) [facility] [id number] 23:22:00 Test Item Value Reference Range Interpretation Comments U Amph Scr (test code Negative *NA*(04/12/18 = U Amph Scr) 5:22 PM) [facility] [id number] 23:22:00 Test Item Value Reference Range Interpretation Comments U Cocaine Scr (test Negative *NA*(04/12/18 code = U Cocaine Scr) 5:22 PM) [facility] [id number] 23:22:00 Test Item Value Reference Range Interpretation Comments U Opiate Scr (test Negative *NA*(04/12/18 code = U Opiate Scr) 5:22 PM) [facility] [id number] 23:22:00 Test Item Value Reference Range Interpretation Comments UDS Note (test code = See Note (04/12/18 5:22 UDS Note) PM) [facility] [id number] 23:22:00 Test Item Value Reference Range Interpretation Comments U Cannab Scr (test Negative *NA*(04/12/18 code = U Cannab Scr) 5:22 PM) [facility] [id number] 23:22:00 Test Item Value Reference Range Interpretation Comments U Phencyclidine Scr (test Negative code = U Phencyclidine *NA*(04/12/18 5:22 Scr) PM) [facility] [id number] 22:38:00 Test Item Value Reference Range Interpretation Comments Troponin-I (test code 0.02 See_Comment [Auto mated message] The = Troponin-I) system which g enerated this result transmit abdelrahman reference range : <=0.40. The reference r annemarie was not used to interpr et this result as gurpreet l/abnormal. [facility]CARD[facility] [id number] 22:38:00 Test Item Value Reference Range Interpretation Comments Total CK (test code = Total CK) 50 12-191 [facility] HospitalDuvas [facility] [id number] 22:38:00 Test Item Value Reference Range Interpretation Comments eGFR (test code = eGFR) 120 [facility] [id number] 22:38:00 Test Item Value Reference Range Interpretation Comments AST (test code = AST) 17 See_Comment [Auto mated message] The system which ge nerated this result transmit abdelrahman reference range : <=37. The reference range was not used to interpr et this result as gurpreet l/abnormal. [facility]2018-12-13 22:38:00 Test Item Value Reference Range Interpretation Comments ALT (test code = ALT) 23 See_Comment [Auto mated message] The system which ge nerated this result transmit abdelrahman reference range : <=65. The reference range was not used to interpr et this result as gurpreet l/abnormal. [facility]2018-12-13 22:38:00 Test Item Value Reference Range Interpretation Comments Albumin Lvl (test code = Albumin Lvl) 4.0 3.5-5.[address] [facility]2018-12-13 22:38:00 Test Item Value Reference Range Interpretation Comments Total Protein (test code = Total 7.4 6.4-8.4 Protein) [facility]2018-12-13 22:38:00 Test Item Value Reference Range Interpretation Comments Bili Total (test code = Bili Total) 0.3 0.2-1.[address] [facility]2018-12-13 22:38:00 Test Item Value Reference Range Interpretation Comments Alk Phos (test code = Alk Phos) 35 39-[address] [facility]2018-12-13 22:38:00 Test Item Value Reference Range Interpretation Comments Chloride Lvl (test code = Chloride Lvl) 103 95-[address] [facility]2018-12-13 22:38:00 Test Item Value Reference Range Interpretation Comments Calcium Lvl (test code = Calcium Lvl) 9.4 8.5-10.[address] [facility]2018-12-13 22:38:00 Test Item Value Reference Range Interpretation Comments CO2 (test code = CO2) 32 24-[address] [facility]2018-12-13 22:38:00 Test Item Value Reference Range Interpretation Comments Potassium Lvl (test code = Potassium 4.2 3.5-5.1 Lvl) [facility]2018-12-13 22:38:00 Test Item Value Reference Range Interpretation Comments Sodium Lvl (test code = Sodium Lvl) 139 135-[address] [facility]2018-12-13 22:38:00 Test Item Value Reference Range Interpretation Comments Creatinine Lvl (test code = Creatinine 0.80 0.50-1.40 Lvl) [facility]2018-12-13 22:38:00 Test Item Value Reference Range Interpretation Comments BUN (test code = BUN) 12 7-[address] [facility]2018-12-13 22:38:00 Test Item Value Reference Range Interpretation Comments Glucose Lvl (test code = Glucose Lvl) 93 70-[address] [facility]2018-12-13 22:38:00 Test Item Value Reference Range Interpretation Comments A/G Ratio (test code = A/G Ratio) 1.2 1 0.7-1.[address] [facility]2018-12-13 22:38:00 Test Item Value Reference Range Interpretation Comments Globulin (test code = Globulin) 3.4 2.7-4.[address] [facility]2018-12-13 22:38:00 Test Item Value Reference Range Interpretation Comments B/C Ratio (test code = B/C Ratio) 15 1 6-[address] [facility]2018-12-13 22:38:00 Test Item Value Reference Range Interpretation Comments AGAP (test code = AGAP) 8.2 10.0-20.0 [id number] 22:38:00 Test Item Value Reference Range Interpretation Comments MCHC (test code = MCHC) 32.1 32.0-36.0 [facility] H[id number] 22:38:00 Test Item Value Reference Range Interpretation Comments MCH (test code = MCH) 27.4 pg 27.0-31.0 [place] [id number] 22:38:00 Test Item Value Reference Range Interpretation Comments Platelet (test code = Platelet) 200 133-450 [facility] H[id number] 22:38:00 Test Item Value Reference Range Interpretation Comments RDW (test code = RDW) 14.4 11.5-14.5 [facility] H[id number] 22:38:00 Test Item Value Reference Range Interpretation Comments MPV (test code = MPV) 9.1 7.4-10.4 [facility] H[id number] 22:38:00 Test Item Value Reference Range Interpretation Comments WBC (test code = WBC) 14.0 3.7-10.4 [facility] H[id number] 22:38:00 Test Item Value Reference Range Interpretation Comments RBC (test code = RBC) 5.18 4.70-6.10 [facility] Hospit[id number] 22:38:00 Test Item Value Reference Range Interpretation Comments Hgb (test code = Hgb) 14.2 14.0-18.0 [facility] HospitalB[id number] 22:38:00 Test Item Value Reference Range Interpretation Comments Hct (test code = Hct) 44.2 42.0-54.0 [facility] HospitalIqfaldjFPPDCUISEM2707-67-77 22:38:00 Test Item Value Reference Range Interpretation Comments MCV (test code = MCV) 85.3 80.0-94.0 [facility] HospitalExhcaqbXGDEBUBVVU1611-25-73 22:38:00 Test Item Value Reference Range Interpretation Comments Basophils (test code = 0.2 See_Comment [Aut omated message] The Basophils) system which ge nerated this result tra nsmitted reference range : <=1.0. The reference r annemarie was not used to int erpret this result as normal/abnormal . [facility] Hospit[id number] 22:38:00 Test Item Value Reference Range Interpretation Comments Eosinophils (test code = 0.1 See_Comment [A utomated message] The Eosinophils) system which ge nerated this result tra nsmitted reference range : <=4.0. The reference r annemarie was not used to int erpret this result as normal/abnormal . [place] [id number] 22:38:00 Test Item Value Reference Range Interpretation Comments Monocytes (test code = Monocytes) 2.7 2.0-12.0 [facility] HospitalAcvcuzuNTHISRZUUM8476-00-06 22:38:00 Test Item Value Reference Range Interpretation Comments Monocytes # (test code 0.4 See_Comment [Aut omated message] The = Monocytes #) system which generated this result tra nsmitted reference range : <=0.8. The reference r annemarie was not used to int erpret this result as normal/abnormal . [facility] HospitalMdwfitpXOHHOSVXRU6556-47-01 22:38:00 Test Item Value Reference Range Interpretation Comments Lymphocytes # (test code = Lymphocytes 0.6 1.0-5.5 #) [facility] HospitalLydejoqAVMJOEZUYF2443-89-18 22:38:00 Test Item Value Reference Range Interpretation Comments Neutrophils # (test code = Neutrophils 13.0 1.5-8.1 #) [facility] HospitalHaxdxgaLVMIEMMYQB6622-19-95 22:38:00 Test Item Value Reference Range Interpretation Comments Lymphocytes (test code = Lymphocytes) 4.1 20.0-40.0 [facility] HospitalFyqhankRCNXSIOFHU9214-86-83 22:38:00 Test Item Value Reference Range Interpretation Comments Eosinophils # (test code 0.0 See_Comment [A utomated message] The = Eosinophils #) system whic h generated this result tra nsmitted reference range : <=0.5. The reference r annemarie was not used to int erpret this result as normal/abnormal . [facility] Hospit[id number] 22:38:00 Test Item Value Reference Range Interpretation Comments Basophils # (test code 0.0 See_Comment [Aut omated message] The = Basophils #) system which generated this result tra nsmitted reference range : <=0.2. The reference r annemarie was not used to int erpret this result as normal/abnormal . [facility] HospitalMpjpmkiQJQHOJOUEL2806-34-76 22:38:00 Test Item Value Reference Range Interpretation Comments RBC Morph (test code = Normal (04/12/18 4:38 RBC Morph) PM) [facility] HospitalPunlwnwJYQEQEUUEB5251-35-07 22:38:00 Test Item Value Reference Range Interpretation Comments Plt Morph (test code = Normal (04/12/18 4:38 Plt Morph) PM) [facility] HospitalNplexsrYJBJYTRUJG5063-02-77 22:38:00 Test Item Value Reference Range Interpretation Comments Segs (test code = Segs) 92.9 45.0-75.0 [facility] Hospit[id number] 22:38:00 Test Item Value Reference Range Interpretation Comments Large Plt (test code Moderate *ABN*(04/12/18 = Large Plt) 4:38 PM) [facility]CAR[facility] [id number] 22:38:00 Test Item Value Reference Range Interpretation Comments Troponin-I (test code 0.02 See_Comment [Auto mated message] The = Troponin-I) system which g enerated this result transmit abdelrahman reference range : <=0.40. The reference r annemarie was not used to interpr et this result as gurpreet l/abnormal. [facility] [id number] 22:38:00 Test Item Value Reference Range Interpretation Comments Total CK (test code = Total CK) 50 12-191 [facility] [id number] 22:38:00 Test Item Value Reference Range Interpretation Comments eGFR (test code = eGFR) 120 [facility] [id number] 22:38:00 Test Item Value Reference Range Interpretation Comments AST (test code = AST) 17 See_Comment [Auto mated message] The system which ge nerated this result transmit abdelrahman reference range : <=37. The reference range was not used to interpr et this result as gurpreet l/abnormal. [facility] [id number] 22:38:00 Test Item Value Reference Range Interpretation Comments ALT (test code = ALT) 23 See_Comment [Auto mated message] The system which ge nerated this result transmit abdelrahman reference range : <=65. The reference range was not used to interpr et this result as gurpreet l/abnormal. [facility] [id number] 22:38:00 Test Item Value Reference Range Interpretation Comments Albumin Lvl (test code = Albumin Lvl) 4.0 3.5-5.0 [facility] [id number] 22:38:00 Test Item Value Reference Range Interpretation Comments Total Protein (test code = Total 7.4 6.4-8.4 Protein) [facility] [id number] 22:38:00 Test Item Value Reference Range Interpretation Comments Bili Total (test code = Bili Total) 0.3 0.2-1.[address] [facility]2018-12-13 22:38:00 Test Item Value Reference Range Interpretation Comments Alk Phos (test code = Alk Phos) 35 39-[address] [facility]2018-12-13 22:38:00 Test Item Value Reference Range Interpretation Comments Chloride Lvl (test code = Chloride Lvl) 103 95-[address] [facility]2018-12-13 22:38:00 Test Item Value Reference Range Interpretation Comments Calcium Lvl (test code = Calcium Lvl) 9.4 8.5-10.[address] [facility]2018-12-13 22:38:00 Test Item Value Reference Range Interpretation Comments CO2 (test code = CO2) 32 24-[address] [facility]2018-12-13 22:38:00 Test Item Value Reference Range Interpretation Comments Potassium Lvl (test code = Potassium 4.2 3.5-5.1 Lvl) [facility]2018-12-13 22:38:00 Test Item Value Reference Range Interpretation Comments Sodium Lvl (test code = Sodium Lvl) 139 135-[address] [facility]2018-12-13 22:38:00 Test Item Value Reference Range Interpretation Comments Creatinine Lvl (test code = Creatinine 0.80 0.50-1.40 Lvl) [facility]2018-12-13 22:38:00 Test Item Value Reference Range Interpretation Comments BUN (test code = BUN) 12 7-[address] [facility]2018-12-13 22:38:00 Test Item Value Reference Range Interpretation Comments Glucose Lvl (test code = Glucose Lvl) 93 70-[address] [facility]2018-12-13 22:38:00 Test Item Value Reference Range Interpretation Comments A/G Ratio (test code = A/G Ratio) 1.2 1 0.7-1.[address] [facility]2018-12-13 22:38:00 Test Item Value Reference Range Interpretation Comments Globulin (test code = Globulin) 3.4 2.7-4.[address] [facility]2018-12-13 22:38:00 Test Item Value Reference Range Interpretation Comments B/C Ratio (test code = B/C Ratio) 15 1 6-[address] [facility]2018-12-13 22:38:00 Test Item Value Reference Range Interpretation Comments AGAP (test code = AGAP) 8.2 10.0-20.0 [facility] HospitalSdfzgzvYJCQEAHFKT3937-15-83 22:38:00 Test Item Value Reference Range Interpretation Comments MCHC (test code = MCHC) 32.1 32.0-36.0 [facility] HospitalBqnocfrNDBMWECNFW8570-06-85 22:38:00 Test Item Value Reference Range Interpretation Comments MCH (test code = MCH) 27.4 pg 27.0-31.0 [facility] HospitalEubgnplKXCTGTHSVE8262-64-32 22:38:00 Test Item Value Reference Range Interpretation Comments Platelet (test code = Platelet) 200 133-450 [facility] HospitalCfrlikkCCVYXJRZFY8810-56-70 22:38:00 Test Item Value Reference Range Interpretation Comments RDW (test code = RDW) 14.4 11.5-14.5 [facility] HospitalFdtuciaCSHXNKLEKT6128-61-93 22:38:00 Test Item Value Reference Range Interpretation Comments MPV (test code = MPV) 9.1 7.4-10.4 [facility] HospitalQocwtkwIXHRKKVJIO5575-49-74 22:38:00 Test Item Value Reference Range Interpretation Comments WBC (test code = WBC) 14.0 3.7-10.4 [facility] HospitalQsbzfhxCQXZBVOVWR3000-93-02 22:38:00 Test Item Value Reference Range Interpretation Comments RBC (test code = RBC) 5.18 4.70-6.10 [facility] HospitalSimtulaULYVMGTGIT2386-85-73 22:38:00 Test Item Value Reference Range Interpretation Comments Hgb (test code = Hgb) 14.2 14.0-18.0 [facility] HospitalXdtgsmeXXNVLDKOUU6745-46-40 22:38:00 Test Item Value Reference Range Interpretation Comments Hct (test code = Hct) 44.2 42.0-54.0 [facility] HospitalYkidhaxSWKUUUSSSL9887-20-19 22:38:00 Test Item Value Reference Range Interpretation Comments MCV (test code = MCV) 85.3 80.0-94.0 [facility] HospitalRqmjqfqPSXCWAQNOI7330-73-47 22:38:00 Test Item Value Reference Range Interpretation Comments Basophils (test code = 0.2 See_Comment [Aut omated message] The Basophils) system which ge nerated this result tra nsmitted reference range : <=1.0. The reference r annemarie was not used to int erpret this result as normal/abnormal . [facility] HospitalNjagjnaISNPDPIKPT6785-90-99 22:38:00 Test Item Value Reference Range Interpretation Comments Eosinophils (test code = 0.1 See_Comment [A utomated message] The Eosinophils) system which ge nerated this result tra nsmitted reference range : <=4.0. The reference r annemarie was not used to int erpret this result as normal/abnormal . [facility] HospitalBzrgsrtSTLPQDORNY1490-04-66 22:38:00 Test Item Value Reference Range Interpretation Comments Monocytes (test code = Monocytes) 2.7 2.0-12.0 [facility] Hospit[id number] 22:38:00 Test Item Value Reference Range Interpretation Comments Monocytes # (test code 0.4 See_Comment [Aut omated message] The = Monocytes #) system which generated this result tra nsmitted reference range : <=0.8. The reference r annemarie was not used to int erpret this result as normal/abnormal . [facility] HospitalXddfhrtJALKCXDAZD7080-25-60 22:38:00 Test Item Value Reference Range Interpretation Comments Lymphocytes # (test code = Lymphocytes 0.6 1.0-5.5 #) [facility] HospitalVulkfwfITEAJSHMED5966-41-36 22:38:00 Test Item Value Reference Range Interpretation Comments Neutrophils # (test code = Neutrophils 13.0 1.5-8.1 #) [facility] HospitalLwnteqkSAUDUEADXA2025-86-15 22:38:00 Test Item Value Reference Range Interpretation Comments Lymphocytes (test code = Lymphocytes) 4.1 20.0-40.0 [facility] HospitalAjjkfgyISWZRDGOEX5034-05-50 22:38:00 Test Item Value Reference Range Interpretation Comments Eosinophils # (test code 0.0 See_Comment [A utomated message] The = Eosinophils #) system whic h generated this result tra nsmitted reference range : <=0.5. The reference r annemarie was not used to int erpret this result as normal/abnormal . [facility] HospitalGfecoqzGEAVMDSFDL1198-43-71 22:38:00 Test Item Value Reference Range Interpretation Comments Basophils # (test code 0.0 See_Comment [Aut omated message] The = Basophils #) system which generated this result tra nsmitted reference range : <=0.2. The reference r annemarie was not used to int erpret this result as normal/abnormal . [facility] CampusMcjbabhQLYUCVIBAD3020-56-45 22:38:00 Test Item Value Reference Range Interpretation Comments RBC Morph (test code = Normal (04/12/18 4:38 RBC Morph) PM) [facility]GhihporXWUXMWSOBU1211-22-05 22:38:00 Test Item Value Reference Range Interpretation Comments Plt Morph (test code = Normal (04/12/18 4:38 Plt Morph) PM) [facility] CampusFyrxjuyLWZGYVJKEA5253-47-08 22:38:00 Test Item Value Reference Range Interpretation Comments Segs (test code = Segs) 92.9 45.0-75.0 [facility] CampusSsjrszaKRTIVGTSIM8354-82-04 22:38:00 Test Item Value Reference Range Interpretation Comments Large Plt (test code Moderate *ABN*(04/12/18 = Large Plt) 4:38 PM) [facility] HospitalTyche LMVPDTE3834-05-16 22:38:00 Test Item Value Reference Range Interpretation Comments Troponin-I (test code 0.02 See_Comment [Auto mated message] The = Troponin-I) system which g enerated this result transmit abdelrahman reference range : <=0.40. The reference r annemarie was not used to interpr et this result as gurpreet l/abnormal. [facility] [id number] 22:38:00 Test Item Value Reference Range Interpretation Comments Total CK (test code = Total CK) 50 12-191 [facility] [id number] 22:38:00 Test Item Value Reference Range Interpretation Comments eGFR (test code = eGFR) 120 [facility] [id number] 22:38:00 Test Item Value Reference Range Interpretation Comments AST (test code = AST) 17 See_Comment [Auto mated message] The system which ge nerated this result transmit abdelrahman reference range : <=37. The reference range was not used to interpr et this result as gurpreet l/abnormal. [facility] [id number] 22:38:00 Test Item Value Reference Range Interpretation Comments ALT (test code = ALT) 23 See_Comment [Auto mated message] The system which ge nerated this result transmit abdelrahman reference range : <=65. The reference range was not used to interpr et this result as gurpreet l/abnormal. [facility] [id number] 22:38:00 Test Item Value Reference Range Interpretation Comments Albumin Lvl (test code = Albumin Lvl) 4.0 3.5-5.[address] [facility]2018-12-13 22:38:00 Test Item Value Reference Range Interpretation Comments Total Protein (test code = Total 7.4 6.4-8.4 Protein) [facility]2018-12-13 22:38:00 Test Item Value Reference Range Interpretation Comments Bili Total (test code = Bili Total) 0.3 0.2-1.[address] [facility]2018-12-13 22:38:00 Test Item Value Reference Range Interpretation Comments Alk Phos (test code = Alk Phos) 35 39-[address] [facility]2018-12-13 22:38:00 Test Item Value Reference Range Interpretation Comments Chloride Lvl (test code = Chloride Lvl) 103 95-[address] [facility]2018-12-13 22:38:00 Test Item Value Reference Range Interpretation Comments Calcium Lvl (test code = Calcium Lvl) 9.4 8.5-10.[address] [facility]2018-12-13 22:38:00 Test Item Value Reference Range Interpretation Comments CO2 (test code = CO2) 32 24-[address] [facility]2018-12-13 22:38:00 Test Item Value Reference Range Interpretation Comments Potassium Lvl (test code = Potassium 4.2 3.5-5.1 Lvl) [facility]2018-12-13 22:38:00 Test Item Value Reference Range Interpretation Comments Sodium Lvl (test code = Sodium Lvl) 139 135-[address] [facility]2018-12-13 22:38:00 Test Item Value Reference Range Interpretation Comments Creatinine Lvl (test code = Creatinine 0.80 0.50-1.40 Lvl) [facility]2018-12-13 22:38:00 Test Item Value Reference Range Interpretation Comments BUN (test code = BUN) 12 7-[address] [facility]2018-12-13 22:38:00 Test Item Value Reference Range Interpretation Comments Glucose Lvl (test code = Glucose Lvl) 93 70-[address] [facility]2018-12-13 22:38:00 Test Item Value Reference Range Interpretation Comments A/G Ratio (test code = A/G Ratio) 1.2 1 0.7-1.[address] [facility]2018-12-13 22:38:00 Test Item Value Reference Range Interpretation Comments Globulin (test code = Globulin) 3.4 2.7-4.[address] [facility]2018-12-13 22:38:00 Test Item Value Reference Range Interpretation Comments B/C Ratio (test code = B/C Ratio) 15 1 6-[address] [facility]2018-12-13 22:38:00 Test Item Value Reference Range Interpretation Comments AGAP (test code = AGAP) 8.2 10.0-20.0 [facility]MgkiakaVDIZBLGWQB3312-65-57 22:38:00 Test Item Value Reference Range Interpretation Comments MCHC (test code = MCHC) 32.1 32.0-36.0 [facility] HospitalS[id number] 22:38:00 Test Item Value Reference Range Interpretation Comments MCH (test code = MCH) 27.4 pg 27.0-31.0 [facility] HospitalQloyrmvWMKOMWKWUU8277-19-71 22:38:00 Test Item Value Reference Range Interpretation Comments Platelet (test code = Platelet) 200 133-450 [facility] HospitalUiygcuvGFUUMXAAMD6054-27-39 22:38:00 Test Item Value Reference Range Interpretation Comments RDW (test code = RDW) 14.4 11.5-14.5 [facility] HospitalPhzormzKYYNUQPVEA5470-24-60 22:38:00 Test Item Value Reference Range Interpretation Comments MPV (test code = MPV) 9.1 7.4-10.4 [facility] HospitalOkfbjhmHWTREFFNMF8869-86-32 22:38:00 Test Item Value Reference Range Interpretation Comments WBC (test code = WBC) 14.0 3.7-10.4 [facility] HospitalYcgujccEDTPREUPBI4312-13-33 22:38:00 Test Item Value Reference Range Interpretation Comments RBC (test code = RBC) 5.18 4.70-6.10 [facility] HospitalOyeoqfxEXNQWUOAQN9569-78-85 22:38:00 Test Item Value Reference Range Interpretation Comments Hgb (test code = Hgb) 14.2 14.0-18.0 [facility] HospitalGrcbjjyRHSMHRZNSJ6612-82-68 22:38:00 Test Item Value Reference Range Interpretation Comments Hct (test code = Hct) 44.2 42.0-54.0 [place] [id number] 22:38:00 Test Item Value Reference Range Interpretation Comments MCV (test code = MCV) 85.3 80.0-94.0 [facility] HospitalEhfoiewZQAHDEFDWO7384-76-12 22:38:00 Test Item Value Reference Range Interpretation Comments Basophils (test code = 0.2 See_Comment [Aut omated message] The Basophils) system which ge nerated this result tra nsmitted reference range : <=1.0. The reference r annemarie was not used to int erpret this result as normal/abnormal . [facility] HospitalXnjbpsiIKRMCIEEFN0249-74-12 22:38:00 Test Item Value Reference Range Interpretation Comments Eosinophils (test code = 0.1 See_Comment [A utomated message] The Eosinophils) system which ge nerated this result tra nsmitted reference range : <=4.0. The reference r annemarie was not used to int erpret this result as normal/abnormal . [facility] HospitalIrzppsnMTDYPDBYHI4031-45-06 22:38:00 Test Item Value Reference Range Interpretation Comments Monocytes (test code = Monocytes) 2.7 2.0-12.0 [facility] HospitalUclaqloXQNZBONVFT2934-82-72 22:38:00 Test Item Value Reference Range Interpretation Comments Monocytes # (test code 0.4 See_Comment [Aut omated message] The = Monocytes #) system which generated this result tra nsmitted reference range : <=0.8. The reference r annemarie was not used to int erpret this result as normal/abnormal . [facility] HospitalVznstlyGVIHFPATYC9402-13-23 22:38:00 Test Item Value Reference Range Interpretation Comments Lymphocytes # (test code = Lymphocytes 0.6 1.0-5.5 #) [facility] HospitalRrrzbkjYLTACODMBZ5736-15-69 22:38:00 Test Item Value Reference Range Interpretation Comments Neutrophils # (test code = Neutrophils 13.0 1.5-8.1 #) [facility] HospitalRmkodzgOQPNCLLUSL8618-30-63 22:38:00 Test Item Value Reference Range Interpretation Comments Lymphocytes (test code = Lymphocytes) 4.1 20.0-40.0 [facility] HospitalRhdruigSSBDVZJDLO5896-03-18 22:38:00 Test Item Value Reference Range Interpretation Comments Eosinophils # (test code 0.0 See_Comment [A utomated message] The = Eosinophils #) system whic h generated this result tra nsmitted reference range : <=0.5. The reference r annemarie was not used to int erpret this result as normal/abnormal . [facility] HospitalAbhmtsxCDHLLEQICE5127-29-10 22:38:00 Test Item Value Reference Range Interpretation Comments Basophils # (test code 0.0 See_Comment [Aut omated message] The = Basophils #) system which generated this result tra nsmitted reference range : <=0.2. The reference r annemarie was not used to int erpret this result as normal/abnormal . [facility] HospitalLrzooqrUJHRPEPJMF0270-19-86 22:38:00 Test Item Value Reference Range Interpretation Comments RBC Morph (test code = Normal (04/12/18 4:38 RBC Morph) PM) [facility] HospitalEexcxtyMPNTIFBZFY1878-30-63 22:38:00 Test Item Value Reference Range Interpretation Comments Plt Morph (test code = Normal (04/12/18 4:38 Plt Morph) PM) [facility] HospitalVfxbduuTMEWOOASVT2504-62-08 22:38:00 Test Item Value Reference Range Interpretation Comments Segs (test code = Segs) 92.9 45.0-75.0 [facility] HospitalJvwhxklMTQTTOWOKC5248-28-94 22:38:00 Test Item Value Reference Range Interpretation Comments Large Plt (test code Moderate *ABN*(04/12/18 = Large Plt) 4:38 PM) [facility]2017-01-01 03:21:00 Test Item Value Reference Range Interpretation Comments Total CK (test code = Total CK) 3725 12-191 [facility]IhudeelUTZXPSQVVCPH5532-60-33 03:21:00 Test Item Value Reference Range Interpretation Comments AGAP (test code = AGAP) 14.1 10.0-20.0 [facility]WestOxecigmONORXLVTYRWW2133-80-58 03:21:00 Test Item Value Reference Range Interpretation Comments B/C Ratio (test code = B/C Ratio) 11 6-25 [facility]WestAlyrfiqJFEHRKHSMLHS0940-93-94 03:21:00 Test Item Value Reference Range Interpretation Comments Globulin (test code = Globulin) 3.2 2.7-4.2 [facility]WestZkwnsbkAFYGLRCJFWMC3443-66-29 03:21:00 Test Item Value Reference Range Interpretation Comments A/G Ratio (test code = A/G Ratio) 1.3 0.7-1.6 [facility]WestAcibwrqXVWNOOHKZCNW9473-44-25 03:21:00 Test Item Value Reference Range Interpretation Comments Bili Total (test code = Bili Total) 0.4 0.2-1.3 [facility]WestQbfixkiKTHWOBYNJRED3277-62-57 03:21:00 Test Item Value Reference Range Interpretation Comments eGFR (test code = eGFR) 102 [facility]WestMjvyayqVVWLXHWYWCXG7474-91-30 03:21:00 Test Item Value Reference Range Interpretation Comments Albumin Lvl (test code = Albumin Lvl) 4.2 3.5-5.0 [facility]WestKjeewqlUGZLXPQSHRHH5504-70-20 03:21:00 Test Item Value Reference Range Interpretation Comments Alk Phos (test code = Alk Phos) 48 39-136 [facility]WestMwjjshgFZNKUGTGNBIJ5321-44-02 03:21:00 Test Item Value Reference Range Interpretation Comments AST (test code = AST) 144 See_Comment [Auto mated message] The system which ge nerated this result transmit abdelrahman reference range : <=37. The reference range was not used to interpr et this result as gurpreet l/abnormal. [facility]WestBolqmskYUJJAOOFSMNM3732-99-03 03:21:00 Test Item Value Reference Range Interpretation Comments Glucose Lvl (test code = Glucose Lvl) 75 70-99 [facility]WestGnvfvstOVKBWDIWZBPZ0988-02-44 03:21:00 Test Item Value Reference Range Interpretation Comments BUN (test code = BUN) 11 7-22 [facility]WestGveqlcdWKOUGPAQSMKU9372-19-42 03:21:00 Test Item Value Reference Range Interpretation Comments Potassium Lvl (test code = Potassium 4.1 3.5-5.1 Lvl) [facility]WestXxmcituTFSGWPTSXTKV1901-02-31 03:21:00 Test Item Value Reference Range Interpretation Comments Creatinine Lvl (test code = Creatinine 1.00 0.50-1.40 Lvl) [facility]WestJcssswaQYSCMELTRHCQ8897-15-25 03:21:00 Test Item Value Reference Range Interpretation Comments Sodium Lvl (test code = Sodium Lvl) 140 135-145 [facility]WestZjdxjwiEVIVLCYIRCAG2802-49-96 03:21:00 Test Item Value Reference Range Interpretation Comments Chloride Lvl (test code = Chloride Lvl) 106 95-109 [facility]WestHzpjkizLKDHEIHECNOR6816-87-80 03:21:00 Test Item Value Reference Range Interpretation Comments CO2 (test code = CO2) 24 24-32 [facility]WestMsbtidjYOAAHPVZUXZQ0000-14-86 03:21:00 Test Item Value Reference Range Interpretation Comments Total Protein (test code = Total 7.4 6.4-8.4 Protein) [facility]WestAgjgimxULIPQRWZYSBN6547-64-30 03:21:00 Test Item Value Reference Range Interpretation Comments Calcium Lvl (test code = Calcium Lvl) 9.1 8.5-10.5 [facility]WestQeohggvEBWGKZRAAHJK8207-18-31 03:21:00 Test Item Value Reference Range Interpretation Comments ALT (test code = ALT) 52 See_Comment [Auto mated message] The system which ge nerated this result transmit abdelrahman reference range : <=65. The reference range was not used to interpr et this result as gurpreet l/abnormal. [facility] HospitalUjttphpEMDEQRUDDO0364-39-45 03:21:00 Test Item Value Reference Range Interpretation Comments MCV (test code = MCV) 86.0 80.0-94.0 [facility] HospitalBnvuzlxTPWYBIVUYY2505-16-27 03:21:00 Test Item Value Reference Range Interpretation Comments MCH (test code = MCH) 29.7 pg 27.0-31.0 [facility] HospitalEugnkxcYOCVLPRLJQ9682-61-21 03:21:00 Test Item Value Reference Range Interpretation Comments Hct (test code = Hct) 41.0 42.0-54.0 [facility] HospitalNiamwjaAJOCQTVUXO8921-31-65 03:21:00 Test Item Value Reference Range Interpretation Comments RBC (test code = RBC) 4.77 4.70-6.10 [facility] HospitalDdjibgrGDXJVLKJTF2967-92-24 03:21:00 Test Item Value Reference Range Interpretation Comments WBC (test code = WBC) 8.8 3.7-10.4 [facility] HospitalRnqlatyFUATPZHFTM6965-51-49 03:21:00 Test Item Value Reference Range Interpretation Comments Hgb (test code = Hgb) 14.2 14.0-18.0 [facility] HospitalGzctvtpRDMHDIGJXP5077-86-84 03:21:00 Test Item Value Reference Range Interpretation Comments Platelet (test code = Platelet) 141 133-450 [facility] HospitalUpighfuCARYCAVZOE1890-73-95 03:21:00 Test Item Value Reference Range Interpretation Comments MCHC (test code = MCHC) 34.5 32.0-36.0 [facility] HospitalZevpwjeSOKOOJALBW1855-79-42 03:21:00 Test Item Value Reference Range Interpretation Comments RDW (test code = RDW) 13.5 11.5-14.5 [facility] HospitalIuoxbbzZTLAKQSNGW3662-73-88 03:21:00 Test Item Value Reference Range Interpretation Comments MPV (test code = MPV) 8.9 7.4-10.4 [facility] HospitalCqmnzykBDUGHGRSHK5389-30-65 03:21:00 Test Item Value Reference Range Interpretation Comments Lymphocytes (test code = Lymphocytes) 21.1 20.0-40.0 [facility] HospitalJyhzuzrVTMTFEFPXT6261-18-75 03:21:00 Test Item Value Reference Range Interpretation Comments Monocytes (test code = Monocytes) 11.7 2.0-12.0 [facility] HospitalHjzbahkFKLHKQCPME7019-15-42 03:21:00 Test Item Value Reference Range Interpretation Comments Lymphocytes # (test code = Lymphocytes 1.8 1.0-5.5 #) [facility] HospitalDdomaseSDUJJVUPBW9451-76-15 03:21:00 Test Item Value Reference Range Interpretation Comments Segs-Bands # (test code = Segs-Bands #) 5.7 1.5-8.1 [facility] HospitalIszyogxQRVJFWBIYF6909-42-71 03:21:00 Test Item Value Reference Range Interpretation Comments Eosinophils (test code = 1.7 See_Comment [A utomated message] The Eosinophils) system which ge nerated this result tra nsmitted reference range : <=4.0. The reference r annemarie was not used to int erpret this result as normal/abnormal . [facility] HospitalRrwbgqaQIJWTEEQSF9934-92-15 03:21:00 Test Item Value Reference Range Interpretation Comments Basophils (test code = 0.8 See_Comment [Aut omated message] The Basophils) system which ge nerated this result tra nsmitted reference range : <=1.0. The reference r annemarie was not used to int erpret this result as normal/abnormal . [facility] HospitalZrsujzrQBTZBLXJLI9027-19-99 03:21:00 Test Item Value Reference Range Interpretation Comments Basophils # (test code 0.1 See_Comment [Aut omated message] The = Basophils #) system which generated this result tra nsmitted reference range : <=0.2. The reference r annemarie was not used to int erpret this result as normal/abnormal . [place] 695617-01-01 03:21:00 Test Item Value Reference Range Interpretation Comments Monocytes # (test code 1.0 See_Comment [Aut omated message] The = Monocytes #) system which generated this result tra nsmitted reference range : <=0.8. The reference r annemarie was not used to int erpret this result as normal/abnormal . [facility] HospitalWgasljtTBAVZCJMSI1654-56-25 03:21:00 Test Item Value Reference Range Interpretation Comments Eosinophils # (test code 0.2 See_Comment [A utomated message] The = Eosinophils #) system whic h generated this result tra nsmitted reference range : <=0.5. The reference r annemarie was not used to int erpret this result as normal/abnormal . [facility] HospitalSglyjyhEHUMAQTENH9195-72-20 03:21:00 Test Item Value Reference Range Interpretation Comments Segs (test code = Segs) 64.7 45.0-75.0 [facility]2017-01-01 03:21:00 Test Item Value Reference Range Interpretation Comments Total CK (test code = Total CK) 3725 12-191 [facility]WestEmanyufVAVWVBYUOAUI9050-74-62 03:21:00 Test Item Value Reference Range Interpretation Comments AGAP (test code = AGAP) 14.1 10.0-20.0 [facility]WestPcrdxheGTZLNDRADALT2804-97-87 03:21:00 Test Item Value Reference Range Interpretation Comments B/C Ratio (test code = B/C Ratio) 11 6-25 [facility]WestDxomjzeGGXIJWKULXMM8585-32-00 03:21:00 Test Item Value Reference Range Interpretation Comments Globulin (test code = Globulin) 3.2 2.7-4.2 [facility]WestQfguqzgFDXPAOTPUGBP7910-65-70 03:21:00 Test Item Value Reference Range Interpretation Comments A/G Ratio (test code = A/G Ratio) 1.3 0.7-1.6 [facility]WestRkjiarpTJHCAEKHKVGW9577-58-26 03:21:00 Test Item Value Reference Range Interpretation Comments Bili Total (test code = Bili Total) 0.4 0.2-1.3 [facility]WestBtvcbgyDCJHYQHHSXHB4700-98-41 03:21:00 Test Item Value Reference Range Interpretation Comments eGFR (test code = eGFR) 102 [facility]WestEekqozhXVVCNPYQVECM6822-31-69 03:21:00 Test Item Value Reference Range Interpretation Comments Albumin Lvl (test code = Albumin Lvl) 4.2 3.5-5.0 [facility]WestUfvntljHMGFKVVACGHF3551-14-25 03:21:00 Test Item Value Reference Range Interpretation Comments Alk Phos (test code = Alk Phos) 48 39-136 [facility]WestWzxfkbjKANAGVMYOSLB1788-36-22 03:21:00 Test Item Value Reference Range Interpretation Comments AST (test code = AST) 144 See_Comment [Auto mated message] The system which ge nerated this result transmit abdelrahman reference range : <=37. The reference range was not used to interpr et this result as gurpreet l/abnormal. [facility]WestSwdkfkjHTOBEEZRLHME6887-47-09 03:21:00 Test Item Value Reference Range Interpretation Comments Glucose Lvl (test code = Glucose Lvl) 75 70-99 [facility]WestQxgvappHDKZGRMVTXYX3458-94-90 03:21:00 Test Item Value Reference Range Interpretation Comments BUN (test code = BUN) 11 7-22 [facility]WestDmtwizoKZYNFEIFVGXS2199-52-84 03:21:00 Test Item Value Reference Range Interpretation Comments Potassium Lvl (test code = Potassium 4.1 3.5-5.1 Lvl) [facility]WestSbhdrbcFQGLWYUZWOOG7395-47-62 03:21:00 Test Item Value Reference Range Interpretation Comments Creatinine Lvl (test code = Creatinine 1.00 0.50-1.40 Lvl) [facility]WestTdxtfopWJZCZPTKOEOR2793-41-00 03:21:00 Test Item Value Reference Range Interpretation Comments Sodium Lvl (test code = Sodium Lvl) 140 135-145 [facility]WestAhwimrdVKMKBSZNVPYS7830-05-84 03:21:00 Test Item Value Reference Range Interpretation Comments Chloride Lvl (test code = Chloride Lvl) 106 95-109 [facility]WestRqpsjntDBPNDVEPZVWD4285-25-80 03:21:00 Test Item Value Reference Range Interpretation Comments CO2 (test code = CO2) 24 24-32 [facility]WestUpqoookLUZNTIDZVNCJ0897-46-94 03:21:00 Test Item Value Reference Range Interpretation Comments Total Protein (test code = Total 7.4 6.4-8.4 Protein) [facility]WestHwchuopKBMUHXUBIULI9384-13-31 03:21:00 Test Item Value Reference Range Interpretation Comments Calcium Lvl (test code = Calcium Lvl) 9.1 8.5-10.5 [facility]SaxhfatSQRVMJDLRQBT7386-92-11 03:21:00 Test Item Value Reference Range Interpretation Comments ALT (test code = ALT) 52 See_Comment [Auto mated message] The system which ge nerated this result transmit abdelrahman reference range : <=65. The reference range was not used to interpr et this result as gurpreet l/abnormal. [facility] HospitalLmyjcbsERXKCSYXFN5697-50-48 03:21:00 Test Item Value Reference Range Interpretation Comments MCV (test code = MCV) 86.0 80.0-94.0 [facility] HospitalScpflgyVLGOPTZYQQ5123-11-95 03:21:00 Test Item Value Reference Range Interpretation Comments MCH (test code = MCH) 29.7 pg 27.0-31.0 [facility] HospitalPuaxmcmXJSFNIGVRH6485-88-28 03:21:00 Test Item Value Reference Range Interpretation Comments Hct (test code = Hct) 41.0 42.0-54.0 [facility] HospitalViasvoxYCCIILEISA5286-91-11 03:21:00 Test Item Value Reference Range Interpretation Comments RBC (test code = RBC) 4.77 4.70-6.10 [facility] HospitalIuatsqqEDIVQZYNNV1230-78-94 03:21:00 Test Item Value Reference Range Interpretation Comments WBC (test code = WBC) 8.8 3.7-10.4 [facility]WmaadxuREDFORFHPD8760-04-47 03:21:00 Test Item Value Reference Range Interpretation Comments Hgb (test code = Hgb) 14.2 14.0-18.0 [facility] HospitalMpixshsILWRRUPYXE1945-56-58 03:21:00 Test Item Value Reference Range Interpretation Comments Platelet (test code = Platelet) 141 133-450 [facility] HospitalCpmkejeXMPZSNYYKS3706-63-86 03:21:00 Test Item Value Reference Range Interpretation Comments MCHC (test code = MCHC) 34.5 32.0-36.0 [facility] HospitalNztszihNUEETFKYGG4552-86-79 03:21:00 Test Item Value Reference Range Interpretation Comments RDW (test code = RDW) 13.5 11.5-14.5 [facility] HospitalCpdkxviOFUOUHCNXC7267-21-34 03:21:00 Test Item Value Reference Range Interpretation Comments MPV (test code = MPV) 8.9 7.4-10.4 [facility] HospitalYmpvqwmQOGKXNMQOG6431-11-15 03:21:00 Test Item Value Reference Range Interpretation Comments Lymphocytes (test code = Lymphocytes) 21.1 20.0-40.0 [facility] HospitalEiwbijpJPVDLMHONG9176-70-74 03:21:00 Test Item Value Reference Range Interpretation Comments Monocytes (test code = Monocytes) 11.7 2.0-12.0 [facility] HospitalPucpursLHCAIMSFSX0741-23-67 03:21:00 Test Item Value Reference Range Interpretation Comments Lymphocytes # (test code = Lymphocytes 1.8 1.0-5.5 #) [facility] HospitalQxtvcbrBJDZXFOEDH7934-93-79 03:21:00 Test Item Value Reference Range Interpretation Comments Segs-Bands # (test code = Segs-Bands #) 5.7 1.5-8.1 [facility] HospitalUbnfdisCPNOMRRDEX6108-05-08 03:21:00 Test Item Value Reference Range Interpretation Comments Eosinophils (test code = 1.7 See_Comment [A utomated message] The Eosinophils) system which ge nerated this result tra nsmitted reference range : <=4.0. The reference r annemarie was not used to int erpret this result as normal/abnormal . [facility] HospitalYvyvbomATXYBLQAIF4564-26-73 03:21:00 Test Item Value Reference Range Interpretation Comments Basophils (test code = 0.8 See_Comment [Aut omated message] The Basophils) system which ge nerated this result tra nsmitted reference range : <=1.0. The reference r annemarie was not used to int erpret this result as normal/abnormal . [id number] 03:21:00 Test Item Value Reference Range Interpretation Comments Basophils # (test code 0.1 See_Comment [Aut omated message] The = Basophils #) system which generated this result tra nsmitted reference range : <=0.2. The reference r annemarie was not used to int erpret this result as normal/abnormal . [facility] HospitalRmmhzclPXENTCTLKF5498-36-87 03:21:00 Test Item Value Reference Range Interpretation Comments Monocytes # (test code 1.0 See_Comment [Aut omated message] The = Monocytes #) system which generated this result tra nsmitted reference range : <=0.8. The reference r annemarie was not used to int erpret this result as normal/abnormal . [facility] HospitalYcutltyNAMUHRDINH6456-81-49 03:21:00 Test Item Value Reference Range Interpretation Comments Eosinophils # (test code 0.2 See_Comment [A utomated message] The = Eosinophils #) system whic h generated this result tra nsmitted reference range : <=0.5. The reference r annemarie was not used to int erpret this result as normal/abnormal . [facility] HospitalOmsobhlXMZNPOQLRK5731-74-58 03:21:00 Test Item Value Reference Range Interpretation Comments Segs (test code = Segs) 64.7 45.0-75.0 [facility] [id number] 03:21:00 Test Item Value Reference Range Interpretation Comments Total CK (test code = Total CK) 3725 12-191 [facility]OanxnskFUSKHTENXTUF4194-51-88 03:21:00 Test Item Value Reference Range Interpretation Comments AGAP (test code = AGAP) 14.1 10.0-20.0 [facility]WestQalvcemKCQLXHSEZBNX0999-55-84 03:21:00 Test Item Value Reference Range Interpretation Comments B/C Ratio (test code = B/C Ratio) 11 6-25 [facility]WestZfghvcdIJTGKLTWTTCX5099-11-33 03:21:00 Test Item Value Reference Range Interpretation Comments Globulin (test code = Globulin) 3.2 2.7-4.2 [facility]WestUhcsvfrWJULOAUFBCRJ5165-58-88 03:21:00 Test Item Value Reference Range Interpretation Comments A/G Ratio (test code = A/G Ratio) 1.3 0.7-1.6 [facility]WestJfvckvnDEWDNRVMLVSF6203-04-57 03:21:00 Test Item Value Reference Range Interpretation Comments Bili Total (test code = Bili Total) 0.4 0.2-1.3 [facility]WestPnnxnrtPFEYWZOYYXDA3692-88-11 03:21:00 Test Item Value Reference Range Interpretation Comments eGFR (test code = eGFR) 102 [facility]WestSdjapswGPZYRXUZAHJK1943-66-96 03:21:00 Test Item Value Reference Range Interpretation Comments Albumin Lvl (test code = Albumin Lvl) 4.2 3.5-5.0 [facility]WestPlzwgtcGXNTJKMBRFYY8309-47-61 03:21:00 Test Item Value Reference Range Interpretation Comments Alk Phos (test code = Alk Phos) 48 39-136 [facility]WestZgtbmivHQVIITGTTNPI7789-74-23 03:21:00 Test Item Value Reference Range Interpretation Comments AST (test code = AST) 144 See_Comment [Auto mated message] The system which ge nerated this result transmit abdelrahman reference range : <=37. The reference range was not used to interpr et this result as gurpreet l/abnormal. [facility]WestYlqzydqPUFEPTFDXVOP5037-49-21 03:21:00 Test Item Value Reference Range Interpretation Comments Glucose Lvl (test code = Glucose Lvl) 75 70-99 [facility]WestIkuirwgUCKLQGPAXEMP1849-23-25 03:21:00 Test Item Value Reference Range Interpretation Comments BUN (test code = BUN) 11 7-22 [facility]WestJtzwrvtGYQCHZUCEEQS8484-96-35 03:21:00 Test Item Value Reference Range Interpretation Comments Potassium Lvl (test code = Potassium 4.1 3.5-5.1 Lvl) [facility]WestFtpokolGLZHSBITIAPZ3627-43-41 03:21:00 Test Item Value Reference Range Interpretation Comments Creatinine Lvl (test code = Creatinine 1.00 0.50-1.40 Lvl) [facility]WestYtupvelHBINYAIQEBAE4135-57-69 03:21:00 Test Item Value Reference Range Interpretation Comments Sodium Lvl (test code = Sodium Lvl) 140 135-145 [facility]WestMrtiakqKPCLQUNVDGJE7054-43-60 03:21:00 Test Item Value Reference Range Interpretation Comments Chloride Lvl (test code = Chloride Lvl) 106 95-109 [facility]WestSeoarjrLWJRFBMBZIBV6185-38-44 03:21:00 Test Item Value Reference Range Interpretation Comments CO2 (test code = CO2) 24 24-32 [facility]WestHukfpmmIAUMRCSIQTVK9630-16-58 03:21:00 Test Item Value Reference Range Interpretation Comments Total Protein (test code = Total 7.4 6.4-8.4 Protein) [facility]WestQnbepuoOZZKAYMBLYQV1439-51-92 03:21:00 Test Item Value Reference Range Interpretation Comments Calcium Lvl (test code = Calcium Lvl) 9.1 8.5-10.5 [facility]WestBqpmwbzCDKWZLYVEGGQ2501-38-97 03:21:00 Test Item Value Reference Range Interpretation Comments ALT (test code = ALT) 52 See_Comment [Auto mated message] The system which ge nerated this result transmit abdelrahman reference range : <=65. The reference range was not used to interpr et this result as gurpreet l/abnormal. [facility] HospitalSveiqkaEVKRTXXRCW4108-10-94 03:21:00 Test Item Value Reference Range Interpretation Comments MCV (test code = MCV) 86.0 80.0-94.0 [facility] HospitalTohjljrFGJNUXJWWT1718-11-85 03:21:00 Test Item Value Reference Range Interpretation Comments MCH (test code = MCH) 29.7 pg 27.0-31.0 [facility] HospitalNhilmteYSGJSHELPZ2217-79-99 03:21:00 Test Item Value Reference Range Interpretation Comments Hct (test code = Hct) 41.0 42.0-54.0 [facility] HospitalCecbcquUBLUXEMHXN6937-61-16 03:21:00 Test Item Value Reference Range Interpretation Comments RBC (test code = RBC) 4.77 4.70-6.10 [facility] HospitalTrvgxrvFKSKZCMPPD6819-51-49 03:21:00 Test Item Value Reference Range Interpretation Comments WBC (test code = WBC) 8.8 3.7-10.4 [facility] HospitalVhzfjgeZYDNDXYQWA1895-60-42 03:21:00 Test Item Value Reference Range Interpretation Comments Hgb (test code = Hgb) 14.2 14.0-18.0 [facility] HospitalJfkgjavMJTCEBUFAK7665-96-88 03:21:00 Test Item Value Reference Range Interpretation Comments Platelet (test code = Platelet) 141 133-450 [facility] HospitalMvvegltKSOQUOQBYX7072-84-64 03:21:00 Test Item Value Reference Range Interpretation Comments MCHC (test code = MCHC) 34.5 32.0-36.0 [facility] HospitalIyiahmoZTSENIVXTL9165-31-53 03:21:00 Test Item Value Reference Range Interpretation Comments RDW (test code = RDW) 13.5 11.5-14.5 [facility] HospitalZbetqqhIGUQKDCRYB4611-10-33 03:21:00 Test Item Value Reference Range Interpretation Comments MPV (test code = MPV) 8.9 7.4-10.4 [facility] HospitalEdweeloVAAONOGBMK0116-63-83 03:21:00 Test Item Value Reference Range Interpretation Comments Lymphocytes (test code = Lymphocytes) 21.1 20.0-40.0 [facility] HospitalGoizzsyRYCIWPRLQX6614-50-34 03:21:00 Test Item Value Reference Range Interpretation Comments Monocytes (test code = Monocytes) 11.7 2.0-12.0 [facility] HospitalDwccmxzVCWTBZUMVH3338-71-04 03:21:00 Test Item Value Reference Range Interpretation Comments Lymphocytes # (test code = Lymphocytes 1.8 1.0-5.5 #) [facility] HospitalIzlvtozLWVQXZIZSA6653-53-24 03:21:00 Test Item Value Reference Range Interpretation Comments Segs-Bands # (test code = Segs-Bands #) 5.7 1.5-8.1 [facility] HospitalPlgppsvSBATUIGGHG4967-83-63 03:21:00 Test Item Value Reference Range Interpretation Comments Eosinophils (test code = 1.7 See_Comment [A utomated message] The Eosinophils) system which ge nerated this result tra nsmitted reference range : <=4.0. The reference r annemarie was not used to int erpret this result as normal/abnormal . [facility] HospitalDbvvkidIQZEIBXQFX2270-68-63 03:21:00 Test Item Value Reference Range Interpretation Comments Basophils (test code = 0.8 See_Comment [Aut omated message] The Basophils) system which ge nerated this result tra nsmitted reference range : <=1.0. The reference r annemarie was not used to int erpret this result as normal/abnormal . [facility] HospitalKzccwogHWCOBEEAVN1002-80-70 03:21:00 Test Item Value Reference Range Interpretation Comments Basophils # (test code 0.1 See_Comment [Aut omated message] The = Basophils #) system which generated this result tra nsmitted reference range : <=0.2. The reference r annemarie was not used to int erpret this result as normal/abnormal . [facility] HospitalZedksyxNEZJSKNVCH2452-22-26 03:21:00 Test Item Value Reference Range Interpretation Comments Monocytes # (test code 1.0 See_Comment [Aut omated message] The = Monocytes #) system which generated this result tra nsmitted reference range : <=0.8. The reference r annemarie was not used to int erpret this result as normal/abnormal . [facility] HospitalTilpgnfETZEJLFJBD9770-88-27 03:21:00 Test Item Value Reference Range Interpretation Comments Eosinophils # (test code 0.2 See_Comment [A utomated message] The = Eosinophils #) system whic h generated this result tra nsmitted reference range : <=0.5. The reference r annemarie was not used to int erpret this result as normal/abnormal . [facility] HospitalIhugzdoLJKDBHQCNK2650-03-79 03:21:00 Test Item Value Reference Range Interpretation Comments Segs (test code = Segs) 64.7 45.0-75.0 [facility] CampusDxiadekUGROYHMPOR3370-77-38 04:48:00 Test Item Value Reference Range Interpretation Comments Etoh (%) (test code = Etoh (%)) no gt [facility] PhlafyfXUOBNSYXNB1692-82-39 04:48:00 Test Item Value Reference Range Interpretation Comments Ethanol Lvl (test code = Ethanol Lvl) no gt [facility] CbqbnbsQJEYMYADUF3386-23-34 04:48:00 Test Item Value Reference Range Interpretation Comments Etoh (%) (test code = Etoh (%)) no gt [facility] BiyyzytIUURKQQCWR8051-80-97 04:48:00 Test Item Value Reference Range Interpretation Comments Ethanol Lvl (test code = Ethanol Lvl) no gt [facility] AuzjknuMPHWCOXEAL4043-43-98 04:48:00 Test Item Value Reference Range Interpretation Comments Etoh (%) (test code = Etoh (%)) no gt [facility] QkzxgusBMOABCKQJT5998-90-57 04:48:00 Test Item Value Reference Range Interpretation Comments Ethanol Lvl (test code = Ethanol Lvl) no gt [facility]annDR[facility] [id number] 02:43:00 Test Item Value Reference Range Interpretation Comments UDS Note (test code = See Note *NA*(04/06/16 UDS Note) 8:43 PM) [facility] [id number] 02:43:00 Test Item Value Reference Range Interpretation Comments U Opiate Scr (test Negative *NA*(04/06/16 code = U Opiate Scr) 8:43 PM) [facility] [id number] 02:43:00 Test Item Value Reference Range Interpretation Comments U Benzodia Scr (test Negative *NA*(04/06/16 code = U Benzodia Scr) 8:43 PM) [facility] [id number] 02:43:00 Test Item Value Reference Range Interpretation Comments U Cocaine Scr (test Negative *NA*(04/06/16 code = U Cocaine Scr) 8:43 PM) [facility] [id number] 02:43:00 Test Item Value Reference Range Interpretation Comments U Phencyc Scr (test Negative *NA*(04/06/16 code = U Phencyc Scr) 8:43 PM) [facility] [id number] 02:43:00 Test Item Value Reference Range Interpretation Comments U Odalys Scr (test code Negative *NA*(04/06/16 = U Odalys Scr) 8:43 PM) [facility] [id number] 02:43:00 Test Item Value Reference Range Interpretation Comments U Cannab Scr (test Negative *NA*(04/06/16 code = U Cannab Scr) 8:43 PM) [facility] [id number] 02:43:00 Test Item Value Reference Range Interpretation Comments U Amph Scr (test code Negative *NA*(04/06/16 = U Amph Scr) 8:43 PM) [facility] [id number] 02:43:00 Test Item Value Reference Range Interpretation Comments UA WBC (test code = UA WBC) 3-5 /HPF [facility] [id number] 02:43:00 Test Item Value Reference Range Interpretation Comments UA Sq Epi (test code = UA Sq Epi) Rare /LPF [facility] [id number] 02:43:00 Test Item Value Reference Range Interpretation Comments UA RBC (test code = 0-2 /HPF See_Comment [Automa abdelrahman message] The UA RBC) system which ge nerated this result tra nsmitted reference range : <=2. The reference range was not used to interpr et this result as gurpreet l/abnormal. [facility] [id number] 02:43:00 Test Item Value Reference Range Interpretation Comments UA Bacteria (test code = UA Occasional /HPF Bacteria) [facility] [id number] 02:43:00 Test Item Value Reference Range Interpretation Comments UA Mucus (test code = UA Mucus) Few /LPF [facility] [id number] 02:43:00 Test Item Value Reference Range Interpretation Comments UA Glucose (test code Negative (04/06/16 8:43 = UA Glucose) PM) [facility] [id number] 02:43:00 Test Item Value Reference Range Interpretation Comments UA Protein (test code Negative (04/06/16 8:43 = UA Protein) PM) [facility] [id number] 02:43:00 Test Item Value Reference Range Interpretation Comments UA pH (test code = UA pH) 5.5 1 5.0-8.0 [facility] [id number] 02:43:00 Test Item Value Reference Range Interpretation Comments UA Spec Grav (test code = UA Spec 1.025 1 Grav) [facility] [id number] 02:43:00 Test Item Value Reference Range Interpretation Comments UA Ketones (test code = UA >=80 mg/dL Ketones) [facility] [id number] 02:43:00 Test Item Value Reference Range Interpretation Comments UA Nitrite (test code Negative (04/06/16 8:43 = UA Nitrite) PM) [facility] [id number] 02:43:00 Test Item Value Reference Range Interpretation Comments UA Urobilinogen (test code = UA 0.2 0.1-1.0 Urobilinogen) [facility] [id number] 02:43:00 Test Item Value Reference Range Interpretation Comments UA Blood (test code = Negative (04/06/16 8:43 UA Blood) PM) [facility] [id number] 02:43:00 Test Item Value Reference Range Interpretation Comments UA Bili (test code = Small *ABN*(04/06/16 UA Bili) 8:43 PM) [facility] [id number] 02:43:00 Test Item Value Reference Range Interpretation Comments UA Leuk Est (test code Trace *ABN*(04/06/16 = UA Leuk Est) 8:43 PM) [facility] [id number] 02:43:00 Test Item Value Reference Range Interpretation Comments UA Turbidity (test code = Clear (04/06/16 8:43 UA Turbidity) PM) [facility] [id number] 02:43:00 Test Item Value Reference Range Interpretation Comments UA Color (test code = Yellow *NA*(04/06/16 UA Color) 8:43 PM) [facility] [id number] 02:43:00 Test Item Value Reference Range Interpretation Comments UDS Note (test code = See Note *NA*(04/06/16 UDS Note) 8:43 PM) [facility] [id number] 02:43:00 Test Item Value Reference Range Interpretation Comments U Opiate Scr (test Negative *NA*(04/06/16 code = U Opiate Scr) 8:43 PM) [facility] [id number] 02:43:00 Test Item Value Reference Range Interpretation Comments U Benzodia Scr (test Negative *NA*(04/06/16 code = U Benzodia Scr) 8:43 PM) [facility] [id number] 02:43:00 Test Item Value Reference Range Interpretation Comments U Cocaine Scr (test Negative *NA*(04/06/16 code = U Cocaine Scr) 8:43 PM) [facility] [id number] 02:43:00 Test Item Value Reference Range Interpretation Comments U Phencyc Scr (test Negative *NA*(04/06/16 code = U Phencyc Scr) 8:43 PM) [facility] [id number] 02:43:00 Test Item Value Reference Range Interpretation Comments U Odalys Scr (test code Negative *NA*(04/06/16 = U Odalys Scr) 8:43 PM) [facility] [id number] 02:43:00 Test Item Value Reference Range Interpretation Comments U Cannab Scr (test Negative *NA*(04/06/16 code = U Cannab Scr) 8:43 PM) [facility] [id number] 02:43:00 Test Item Value Reference Range Interpretation Comments U Amph Scr (test code Negative *NA*(04/06/16 = U Amph Scr) 8:43 PM) [facility] [id number] 02:43:00 Test Item Value Reference Range Interpretation Comments UA WBC (test code = UA WBC) 3-5 /HPF [facility] [id number] 02:43:00 Test Item Value Reference Range Interpretation Comments UA Sq Epi (test code = UA Sq Epi) Rare /LPF [facility] [id number] 02:43:00 Test Item Value Reference Range Interpretation Comments UA RBC (test code = 0-2 /HPF See_Comment [Automa abdelrahman message] The UA RBC) system which ge nerated this result tra nsmitted reference range : <=2. The reference range was not used to interpr et this result as gurpreet l/abnormal. [facility] AND [id number] 02:43:00 Test Item Value Reference Range Interpretation Comments UA Bacteria (test code = UA Occasional /HPF Bacteria) [facility] AND [id number] 02:43:00 Test Item Value Reference Range Interpretation Comments UA Mucus (test code = UA Mucus) Few /LPF [facility] AND [id number] 02:43:00 Test Item Value Reference Range Interpretation Comments UA Glucose (test code Negative (04/06/16 8:43 = UA Glucose) PM) [facility] AND [id number] 02:43:00 Test Item Value Reference Range Interpretation Comments UA Protein (test code Negative (04/06/16 8:43 = UA Protein) PM) [facility] AND [id number] 02:43:00 Test Item Value Reference Range Interpretation Comments UA pH (test code = UA pH) 5.5 1 5.0-8.0 [facility] AND [id number] 02:43:00 Test Item Value Reference Range Interpretation Comments UA Spec Grav (test code = UA Spec 1.025 1 Grav) [facility] AND [id number] 02:43:00 Test Item Value Reference Range Interpretation Comments UA Ketones (test code = UA >=80 mg/dL Ketones) [facility] AND [id number] 02:43:00 Test Item Value Reference Range Interpretation Comments UA Nitrite (test code Negative (04/06/16 8:43 = UA Nitrite) PM) [facility] AND [id number] 02:43:00 Test Item Value Reference Range Interpretation Comments UA Urobilinogen (test code = UA 0.2 0.1-1.0 Urobilinogen) [facility] AND [id number] 02:43:00 Test Item Value Reference Range Interpretation Comments UA Blood (test code = Negative (04/06/16 8:43 UA Blood) PM) [facility] AND [id number] 02:43:00 Test Item Value Reference Range Interpretation Comments UA Bili (test code = Small *ABN*(04/06/16 UA Bili) 8:43 PM) [facility] AND [id number] 02:43:00 Test Item Value Reference Range Interpretation Comments UA Leuk Est (test code Trace *ABN*(04/06/16 = UA Leuk Est) 8:43 PM) [facility] [id number] 02:43:00 Test Item Value Reference Range Interpretation Comments UA Turbidity (test code = Clear (04/06/16 8:43 UA Turbidity) PM) [facility] [id number] 02:43:00 Test Item Value Reference Range Interpretation Comments UA Color (test code = Yellow *NA*(04/06/16 UA Color) 8:43 PM) [facility] [id number] 02:43:00 Test Item Value Reference Range Interpretation Comments UDS Note (test code = See Note *NA*(04/06/16 UDS Note) 8:43 PM) [facility] [id number] 02:43:00 Test Item Value Reference Range Interpretation Comments U Opiate Scr (test Negative *NA*(04/06/16 code = U Opiate Scr) 8:43 PM) [facility] [id number] 02:43:00 Test Item Value Reference Range Interpretation Comments U Benzodia Scr (test Negative *NA*(04/06/16 code = U Benzodia Scr) 8:43 PM) [facility] [id number] 02:43:00 Test Item Value Reference Range Interpretation Comments U Cocaine Scr (test Negative *NA*(04/06/16 code = U Cocaine Scr) 8:43 PM) [facility] [id number] 02:43:00 Test Item Value Reference Range Interpretation Comments U Phencyc Scr (test Negative *NA*(04/06/16 code = U Phencyc Scr) 8:43 PM) [facility] [id number] 02:43:00 Test Item Value Reference Range Interpretation Comments U Odalys Scr (test code Negative *NA*(04/06/16 = U Odalys Scr) 8:43 PM) [facility] [id number] 02:43:00 Test Item Value Reference Range Interpretation Comments U Cannab Scr (test Negative *NA*(04/06/16 code = U Cannab Scr) 8:43 PM) [facility] [id number] 02:43:00 Test Item Value Reference Range Interpretation Comments U Amph Scr (test code Negative *NA*(04/06/16 = U Amph Scr) 8:43 PM) [facility] AND [id number] 02:43:00 Test Item Value Reference Range Interpretation Comments UA WBC (test code = UA WBC) 3-5 /HPF [facility] AND [id number] 02:43:00 Test Item Value Reference Range Interpretation Comments UA Sq Epi (test code = UA Sq Epi) Rare /LPF [facility] AND [id number] 02:43:00 Test Item Value Reference Range Interpretation Comments UA RBC (test code = 0-2 /HPF See_Comment [Automa abdelrahman message] The UA RBC) system which ge nerated this result tra nsmitted reference range : <=2. The reference range was not used to interpr et this result as gurpreet l/abnormal. [facility] AND [id number] 02:43:00 Test Item Value Reference Range Interpretation Comments UA Bacteria (test code = UA Occasional /HPF Bacteria) [facility] AND [id number] 02:43:00 Test Item Value Reference Range Interpretation Comments UA Mucus (test code = UA Mucus) Few /LPF [facility] AND [id number] 02:43:00 Test Item Value Reference Range Interpretation Comments UA Glucose (test code Negative (04/06/16 8:43 = UA Glucose) PM) [facility] AND [id number] 02:43:00 Test Item Value Reference Range Interpretation Comments UA Protein (test code Negative (04/06/16 8:43 = UA Protein) PM) [facility] AND [id number] 02:43:00 Test Item Value Reference Range Interpretation Comments UA pH (test code = UA pH) 5.5 1 5.0-8.0 [facility] AND [id number] 02:43:00 Test Item Value Reference Range Interpretation Comments UA Spec Grav (test code = UA Spec 1.025 1 Grav) [facility] AND [id number] 02:43:00 Test Item Value Reference Range Interpretation Comments UA Ketones (test code = UA >=80 mg/dL Ketones) [facility] AND [id number] 02:43:00 Test Item Value Reference Range Interpretation Comments UA Nitrite (test code Negative (04/06/16 8:43 = UA Nitrite) PM) [facility] [id number] 02:43:00 Test Item Value Reference Range Interpretation Comments UA Urobilinogen (test code = UA 0.2 0.1-1.0 Urobilinogen) [facility] [id number] 02:43:00 Test Item Value Reference Range Interpretation Comments UA Blood (test code = Negative (04/06/16 8:43 UA Blood) PM) [facility] [id number] 02:43:00 Test Item Value Reference Range Interpretation Comments UA Bili (test code = Small *ABN*(04/06/16 UA Bili) 8:43 PM) [facility] [id number] 02:43:00 Test Item Value Reference Range Interpretation Comments UA Leuk Est (test code Trace *ABN*(04/06/16 = UA Leuk Est) 8:43 PM) [facility] [id number] 02:43:00 Test Item Value Reference Range Interpretation Comments UA Turbidity (test code = Clear (04/06/16 8:43 UA Turbidity) PM) [facility] [id number] 02:43:00 Test Item Value Reference Range Interpretation Comments UA Color (test code = Yellow *NA*(04/06/16 UA Color) 8:43 PM) [facility] [id number] 02:38:00 Test Item Value Reference Range Interpretation Comments Total CK (test code = Total CK) 598 12-191 [facility] [id number] 02:38:00 Test Item Value Reference Range Interpretation Comments eGFR (test code = eGFR) 121 [id number] 02:[facility]00 Test Item Value Reference Range Interpretation Comments Calcium Lvl (test code = Calcium Lvl) 9.2 8.5-10.5 [facility] [id number] 02:38:00 Test Item Value Reference Range Interpretation Comments Total Protein (test code = Total 7.6 6.4-8.4 Protein) [facility] [id number] 02:38:00 Test Item Value Reference Range Interpretation Comments CO2 (test code = CO2) 22 24-[address] [facility]2016-12-08 02:38:00 Test Item Value Reference Range Interpretation Comments AST (test code = AST) 43 See_Comment [Auto mated message] The system which ge nerated this result transmit abdelrahman reference range : <=37. The reference range was not used to interpr et this result as gurpreet l/abnormal. [facility]2016-12-08 02:38:00 Test Item Value Reference Range Interpretation Comments Albumin Lvl (test code = Albumin Lvl) 4.4 3.5-5.[address] [facility]2016-12-08 02:38:00 Test Item Value Reference Range Interpretation Comments ALT (test code = ALT) 22 See_Comment [Auto mated message] The system which ge nerated this result transmit abdelrahman reference range : <=65. The reference range was not used to interpr et this result as gurpreet l/abnormal. [facility]2016-12-08 02:38:00 Test Item Value Reference Range Interpretation Comments Chloride Lvl (test code = Chloride Lvl) 101 95-[address] [facility]2016-12-08 02:38:00 Test Item Value Reference Range Interpretation Comments Creatinine Lvl (test code = Creatinine 0.81 0.50-1.40 Lvl) [facility]2016-12-08 02:38:00 Test Item Value Reference Range Interpretation Comments Sodium Lvl (test code = Sodium Lvl) 136 135-[address] [facility]2016-12-08 02:38:00 Test Item Value Reference Range Interpretation Comments Potassium Lvl (test code = Potassium 4.4 3.5-5.1 Lvl) [facility]2016-12-08 02:38:00 Test Item Value Reference Range Interpretation Comments Bili Total (test code = Bili Total) 0.9 0.2-1.[address] [facility]2016-12-08 02:38:00 Test Item Value Reference Range Interpretation Comments Alk Phos (test code = Alk Phos) 34 39-[address] [facility]2016-12-08 02:38:00 Test Item Value Reference Range Interpretation Comments Glucose Lvl (test code = Glucose Lvl) 63 70-[address] [facility]2016-12-08 02:38:00 Test Item Value Reference Range Interpretation Comments BUN (test code = BUN) 14 7-[address] [facility]2016-12-08 02:38:00 Test Item Value Reference Range Interpretation Comments AGAP (test code = AGAP) 17.4 10.0-20.[address] [facility]2016-12-08 02:38:00 Test Item Value Reference Range Interpretation Comments B/C Ratio (test code = B/C Ratio) 17 6-[address] [facility]2016-12-08 02:38:00 Test Item Value Reference Range Interpretation Comments Globulin (test code = Globulin) 3.2 2.7-4.[address] [facility]2016-12-08 02:38:00 Test Item Value Reference Range Interpretation Comments A/G Ratio (test code = A/G Ratio) 1.4 0.7-1.6 [place] [id number] 02:38:00 Test Item Value Reference Range Interpretation Comments Lymphocytes # (test code = Lymphocytes 1.7 1.0-5.5 #) [id number] 02:38:00 Test Item Value Reference Range Interpretation Comments Eosinophils (test code = 1.0 See_Comment [A utomated message] The Eosinophils) system which ge nerated this result tra nsmitted reference range : <=4.0. The reference r annemarie was not used to int erpret this result as normal/abnormal . [facility] HospitalVrmwmduLLTGRGILGM3393-95-93 02:38:00 Test Item Value Reference Range Interpretation Comments Basophils (test code = 0.4 See_Comment [Aut omated message] The Basophils) system which ge nerated this result tra nsmitted reference range : <=1.0. The reference r annemarie was not used to int erpret this result as normal/abnormal . [facility] HospitalBizrttlAONVGOEZHW3581-04-29 02:38:00 Test Item Value Reference Range Interpretation Comments Segs-Bands # (test code = Segs-Bands #) 4.2 1.5-8.1 [facility] HospitalNewebboIZADMIURCD6602-38-66 02:38:00 Test Item Value Reference Range Interpretation Comments Monocytes (test code = Monocytes) 9.2 2.0-12.0 [facility] HospitalRahdbcqESDSERBKAI9307-13-09 02:38:00 Test Item Value Reference Range Interpretation Comments Monocytes # (test code 0.6 See_Comment [Aut omated message] The = Monocytes #) system which generated this result tra nsmitted reference range : <=0.8. The reference r annemarie was not used to int erpret this result as normal/abnormal . [facility] HospitalXnhydjjCNBMMXRSTG3518-46-60 02:38:00 Test Item Value Reference Range Interpretation Comments Eosinophils # (test code 0.1 See_Comment [A utomated message] The = Eosinophils #) system whic h generated this result tra nsmitted reference range : <=0.5. The reference r annemarie was not used to int erpret this result as normal/abnormal . [facility] HospitalRlnzrcoYEKHOIDHCT3533-04-24 02:38:00 Test Item Value Reference Range Interpretation Comments Lymphocytes (test code = Lymphocytes) 26.3 20.0-40.0 [facility] HospitalYcqovkhNYSAHMQXZR5986-59-87 02:38:00 Test Item Value Reference Range Interpretation Comments Segs (test code = Segs) 63.1 45.0-75.0 [facility] HospitalKmqiesyIPRAYFZHVI8034-54-51 02:38:00 Test Item Value Reference Range Interpretation Comments WBC (test code = WBC) 6.6 3.7-10.4 [facility] HospitalIjxpwkdPEOHDIAMLP7421-97-01 02:38:00 Test Item Value Reference Range Interpretation Comments Hct (test code = Hct) 42.9 42.0-54.0 [facility] HospitalOebyqtfNLSVPFEPII7751-64-27 02:38:00 Test Item Value Reference Range Interpretation Comments RBC (test code = RBC) 4.86 4.70-6.10 [facility] HospitalJtsobufPYHIWFERPN2875-75-44 02:38:00 Test Item Value Reference Range Interpretation Comments Hgb (test code = Hgb) 14.4 14.0-18.0 [facility] HospitalBihpoitMEXAMQWENT7836-96-06 02:38:00 Test Item Value Reference Range Interpretation Comments MCV (test code = MCV) 88.3 80.0-94.0 [facility] HospitalHznasxxQEMOJIJBZP6639-90-99 02:38:00 Test Item Value Reference Range Interpretation Comments MCH (test code = MCH) 29.6 pg 27.0-31.0 [facility] HospitalDqcwpphSFVYYLITLR9190-55-12 02:38:00 Test Item Value Reference Range Interpretation Comments MCHC (test code = MCHC) 33.6 32.0-36.0 [facility]KqyhhbpIPMQETGFUD3795-32-24 02:38:00 Test Item Value Reference Range Interpretation Comments MPV (test code = MPV) 9.4 7.4-10.4 [facility] CampusXlepzujPXIAMAVQMT7443-63-22 02:38:00 Test Item Value Reference Range Interpretation Comments RDW (test code = RDW) 13.4 11.5-14.5 [facility] CampusKwzdgmxBKZIKFZSZL6777-60-88 02:38:00 Test Item Value Reference Range Interpretation Comments Platelet (test code = Platelet) 145 133-450 [facility] CampusSbjexjcVRNLIQCCHA3649-84-94 02:38:00 Test Item Value Reference Range Interpretation Comments Salicylate Lvl (test no gt See_Comment [Autom ated message] The code = Salicylate Lvl) syste m which generated this result tra nsmitted reference range : <=30.0. The reference r annemarie was not used to int erpret this result as normal/abnormal . [facility]EzucmtgNTKHJJOZDZ5450-97-86 02:38:00 Test Item Value Reference Range Interpretation Comments Acetaminoph Lvl (test code (04/06/16 8:38 PM) 10-20 = Acetaminoph Lvl) [facility] CampusannVIRAL - [id number] 02:38:00 Test Item Value Reference Range Interpretation Comments Influ B (test code = Negative (04/06/16 8:38 Influ B) PM) [facility] [id number] 02:38:00 Test Item Value Reference Range Interpretation Comments Influ A (test code = Negative (04/06/16 8:38 Influ A) PM) [facility] CampusannCARDIAC HHMPWJT4627-38-31 02:38:00 Test Item Value Reference Range Interpretation Comments Total CK (test code = Total CK) 598 12-191 [facility] KVTSX7006-67-58 02:38:00 Test Item Value Reference Range Interpretation Comments eGFR (test code = eGFR) 121 [facility]annCHE[facility] [id number] 02:38:00 Test Item Value Reference Range Interpretation Comments Calcium Lvl (test code = Calcium Lvl) 9.2 8.5-10.5 [facility]CHE[facility] UVSZW2213-48-68 02:38:00 Test Item Value Reference Range Interpretation Comments Total Protein (test code = Total 7.6 6.4-8.4 Protein) [facility]2016-12-08 02:38:00 Test Item Value Reference Range Interpretation Comments CO2 (test code = CO2) 22 24-[address] [facility]2016-12-08 02:38:00 Test Item Value Reference Range Interpretation Comments AST (test code = AST) 43 See_Comment [Auto mated message] The system which ge nerated this result transmit abdelrahman reference range : <=37. The reference range was not used to interpr et this result as gurpreet l/abnormal. [facility]2016-12-08 02:38:00 Test Item Value Reference Range Interpretation Comments Albumin Lvl (test code = Albumin Lvl) 4.4 3.5-5.[address] [facility]2016-12-08 02:38:00 Test Item Value Reference Range Interpretation Comments ALT (test code = ALT) 22 See_Comment [Auto mated message] The system which ge nerated this result transmit abdelrahman reference range : <=65. The reference range was not used to interpr et this result as gurpreet l/abnormal. [facility]2016-12-08 02:38:00 Test Item Value Reference Range Interpretation Comments Chloride Lvl (test code = Chloride Lvl) 101 95-[address] [facility]2016-12-08 02:38:00 Test Item Value Reference Range Interpretation Comments Creatinine Lvl (test code = Creatinine 0.81 0.50-1.40 Lvl) [facility]2016-12-08 02:38:00 Test Item Value Reference Range Interpretation Comments Sodium Lvl (test code = Sodium Lvl) 136 135-[address] [facility]2016-12-08 02:38:00 Test Item Value Reference Range Interpretation Comments Potassium Lvl (test code = Potassium 4.4 3.5-5.1 Lvl) [facility]2016-12-08 02:38:00 Test Item Value Reference Range Interpretation Comments Bili Total (test code = Bili Total) 0.9 0.2-1.[address] [facility]2016-12-08 02:38:00 Test Item Value Reference Range Interpretation Comments Alk Phos (test code = Alk Phos) 34 39-[address] [facility]2016-12-08 02:38:00 Test Item Value Reference Range Interpretation Comments Glucose Lvl (test code = Glucose Lvl) 63 70-[address] [facility]2016-12-08 02:38:00 Test Item Value Reference Range Interpretation Comments BUN (test code = BUN) 14 7-22 [place] [id number] 02:38:00 Test Item Value Reference Range Interpretation Comments AGAP (test code = AGAP) 17.4 10.0-20.0 [place] [id number] 02:38:00 Test Item Value Reference Range Interpretation Comments B/C Ratio (test code = B/C Ratio) 17 6-25 [place] [address]-12-08 02:38:00 Test Item Value Reference Range Interpretation Comments Globulin (test code = Globulin) 3.2 2.7-4.2 [place] [id number] 02:38:00 Test Item Value Reference Range Interpretation Comments A/G Ratio (test code = A/G Ratio) 1.4 0.7-1.6 [place] [id number] 02:38:00 Test Item Value Reference Range Interpretation Comments Lymphocytes # (test code = Lymphocytes 1.7 1.0-5.5 #) [facility] HospitalYxpzmmhDSLJPKEMWO9520-72-85 02:38:00 Test Item Value Reference Range Interpretation Comments Eosinophils (test code = 1.0 See_Comment [A utomated message] The Eosinophils) system which ge nerated this result tra nsmitted reference range : <=4.0. The reference r annemarie was not used to int erpret this result as normal/abnormal . [facility] HospitalGctbypvSIJUIZEQKT5844-78-52 02:38:00 Test Item Value Reference Range Interpretation Comments Basophils (test code = 0.4 See_Comment [Aut omated message] The Basophils) system which ge nerated this result tra nsmitted reference range : <=1.0. The reference r annemarie was not used to int erpret this result as normal/abnormal . [facility] HospitalKqwktepISUBTNYFPK7904-62-55 02:38:00 Test Item Value Reference Range Interpretation Comments Segs-Bands # (test code = Segs-Bands #) 4.2 1.5-8.1 [facility] HospitalBpncxxsGTMLCSWPIJ1265-60-76 02:38:00 Test Item Value Reference Range Interpretation Comments Monocytes (test code = Monocytes) 9.2 2.0-12.0 [facility] HospitalZfcwmzbHKAHJMTXKI7981-96-87 02:38:00 Test Item Value Reference Range Interpretation Comments Monocytes # (test code 0.6 See_Comment [Aut omated message] The = Monocytes #) system which generated this result tra nsmitted reference range : <=0.8. The reference r annemarie was not used to int erpret this result as normal/abnormal . [facility] HospitalWsxpmiaNWUJDMVHKT5865-65-30 02:38:00 Test Item Value Reference Range Interpretation Comments Eosinophils # (test code 0.1 See_Comment [A utomated message] The = Eosinophils #) system whic h generated this result tra nsmitted reference range : <=0.5. The reference r annemarie was not used to int erpret this result as normal/abnormal . [facility] HospitalNxaaegfFUDUXXPRUW8417-87-80 02:38:00 Test Item Value Reference Range Interpretation Comments Lymphocytes (test code = Lymphocytes) 26.3 20.0-40.0 [facility] HospitalZdvookaUWGRVBQBLV4699-63-94 02:38:00 Test Item Value Reference Range Interpretation Comments Segs (test code = Segs) 63.1 45.0-75.0 [facility] HospitalSqwkdqtPIKDSQWMCL2513-69-37 02:38:00 Test Item Value Reference Range Interpretation Comments WBC (test code = WBC) 6.6 3.7-10.4 [facility] HospitalLxpcgqxLJGIHXAKZX8326-67-49 02:38:00 Test Item Value Reference Range Interpretation Comments Hct (test code = Hct) 42.9 42.0-54.0 [facility] HospitalTgbsybsTNSOIFGCIT1225-89-82 02:38:00 Test Item Value Reference Range Interpretation Comments RBC (test code = RBC) 4.86 4.70-6.10 [facility] HospitalEmpnjbtYFMQJXZUAX5789-79-69 02:38:00 Test Item Value Reference Range Interpretation Comments Hgb (test code = Hgb) 14.4 14.0-18.0 [facility] HospitalTyxogwwZLCHIDJTLL3120-30-91 02:38:00 Test Item Value Reference Range Interpretation Comments MCV (test code = MCV) 88.3 80.0-94.0 [facility] HospitalUfgnnmuXXJKRQRNQS7567-90-86 02:38:00 Test Item Value Reference Range Interpretation Comments MCH (test code = MCH) 29.6 pg 27.0-31.0 [facility] CampusYydykanFCEYMMQZVN9870-76-87 02:38:00 Test Item Value Reference Range Interpretation Comments MCHC (test code = MCHC) 33.6 32.0-36.0 [facility] CampusPowybynZCMZFUKNES6412-29-16 02:38:00 Test Item Value Reference Range Interpretation Comments MPV (test code = MPV) 9.4 7.4-10.4 [facility] CampusYxfveeoCKAHOQYEQG2727-95-33 02:38:00 Test Item Value Reference Range Interpretation Comments RDW (test code = RDW) 13.4 11.5-14.5 [facility] CampusMwbjwrgBSDAWIPJWE4412-56-06 02:38:00 Test Item Value Reference Range Interpretation Comments Platelet (test code = Platelet) 145 133-450 [facility] HospitalLlpzosaEGEMTREBDN1746-56-02 02:38:00 Test Item Value Reference Range Interpretation Comments Salicylate Lvl (test no gt See_Comment [Autom ated message] The code = Salicylate Lvl) syste m which generated this result tra nsmitted reference range : <=30.0. The reference r annemarie was not used to int erpret this result as normal/abnormal . [facility] CampusWsqevjzIBEAHGSKAE2446-61-64 02:38:00 Test Item Value Reference Range Interpretation Comments Acetaminoph Lvl (test code (04/06/16 8:38 PM) 10-20 = Acetaminoph Lvl) [facility]annVIRAL - [id number] 02:38:00 Test Item Value Reference Range Interpretation Comments Influ B (test code = Negative (04/06/16 8:38 Influ B) PM) [facility] - [id number] 02:38:00 Test Item Value Reference Range Interpretation Comments Influ A (test code = Negative (04/06/16 8:38 Influ A) PM) [facility]annCARDIAC [id number] 02:38:00 Test Item Value Reference Range Interpretation Comments Total CK (test code = Total CK) 598 12-191 [facility]annCHEM [id number] 02:38:00 Test Item Value Reference Range Interpretation Comments eGFR (test code = eGFR) 121 [facility]annCHE[facility] XEQRB2589-92-83 02:38:00 Test Item Value Reference Range Interpretation Comments Calcium Lvl (test code = Calcium Lvl) 9.2 8.5-10.[address] [facility]2016-12-08 02:38:00 Test Item Value Reference Range Interpretation Comments Total Protein (test code = Total 7.6 6.4-8.4 Protein) [facility]2016-12-08 02:38:00 Test Item Value Reference Range Interpretation Comments CO2 (test code = CO2) 22 24-[address] [facility]2016-12-08 02:38:00 Test Item Value Reference Range Interpretation Comments AST (test code = AST) 43 See_Comment [Auto mated message] The system which ge nerated this result transmit abdelrahman reference range : <=37. The reference range was not used to interpr et this result as gurpreet l/abnormal. [facility]2016-12-08 02:38:00 Test Item Value Reference Range Interpretation Comments Albumin Lvl (test code = Albumin Lvl) 4.4 3.5-5.[address] [facility]2016-12-08 02:38:00 Test Item Value Reference Range Interpretation Comments ALT (test code = ALT) 22 See_Comment [Auto mated message] The system which ge nerated this result transmit abdelrahman reference range : <=65. The reference range was not used to interpr et this result as gurpreet l/abnormal. [facility]2016-12-08 02:38:00 Test Item Value Reference Range Interpretation Comments Chloride Lvl (test code = Chloride Lvl) 101 95-[address] [facility]2016-12-08 02:38:00 Test Item Value Reference Range Interpretation Comments Creatinine Lvl (test code = Creatinine 0.81 0.50-1.40 Lvl) [facility]2016-12-08 02:38:00 Test Item Value Reference Range Interpretation Comments Sodium Lvl (test code = Sodium Lvl) 136 135-[address] [facility]2016-12-08 02:38:00 Test Item Value Reference Range Interpretation Comments Potassium Lvl (test code = Potassium 4.4 3.5-5.1 Lvl) [facility]2016-12-08 02:38:00 Test Item Value Reference Range Interpretation Comments Bili Total (test code = Bili Total) 0.9 0.2-1.[address] [facility]2016-12-08 02:38:00 Test Item Value Reference Range Interpretation Comments Alk Phos (test code = Alk Phos) 34 39-[address] [facility]2016-12-08 02:38:00 Test Item Value Reference Range Interpretation Comments Glucose Lvl (test code = Glucose Lvl) 63 70-[address] [facility]2016-12-08 02:38:00 Test Item Value Reference Range Interpretation Comments BUN (test code = BUN) 14 7-[address] [facility]2016-12-08 02:38:00 Test Item Value Reference Range Interpretation Comments AGAP (test code = AGAP) 17.4 10.0-20.[address] [facility]2016-12-08 02:38:00 Test Item Value Reference Range Interpretation Comments B/C Ratio (test code = B/C Ratio) 17 6-[address] [facility]2016-12-08 02:38:00 Test Item Value Reference Range Interpretation Comments Globulin (test code = Globulin) 3.2 2.7-4.[address] [facility]2016-12-08 02:38:00 Test Item Value Reference Range Interpretation Comments A/G Ratio (test code = A/G Ratio) 1.4 0.7-1.6 [facility] HospitalBalocnoLQGYUQZFZG3959-54-34 02:38:00 Test Item Value Reference Range Interpretation Comments Lymphocytes # (test code = Lymphocytes 1.7 1.0-5.5 #) [facility] H[id number] 02:38:00 Test Item Value Reference Range Interpretation Comments Eosinophils (test code = 1.0 See_Comment [A utomated message] The Eosinophils) system which ge nerated this result tra nsmitted reference range : <=4.0. The reference r annemarie was not used to int erpret this result as normal/abnormal . [facility] HospitalFpdfwoxSDFHCFCLVR2646-85-60 02:38:00 Test Item Value Reference Range Interpretation Comments Basophils (test code = 0.4 See_Comment [Aut omated message] The Basophils) system which ge nerated this result tra nsmitted reference range : <=1.0. The reference r annemaire was not used to int erpret this result as normal/abnormal . [place] 695616-12-08 02:38:00 Test Item Value Reference Range Interpretation Comments Segs-Bands # (test code = Segs-Bands #) 4.2 1.5-8.1 [facility] HospitalGleautvUPITAKAFYF1174-13-52 02:38:00 Test Item Value Reference Range Interpretation Comments Monocytes (test code = Monocytes) 9.2 2.0-12.0 [facility] HospitalXopdphjJDLTONXLBL3315-04-18 02:38:00 Test Item Value Reference Range Interpretation Comments Monocytes # (test code 0.6 See_Comment [Aut omated message] The = Monocytes #) system which generated this result tra nsmitted reference range : <=0.8. The reference r annemarie was not used to int erpret this result as normal/abnormal . [facility] HospitalSetbaudUYIKXTKSEF7586-00-88 02:38:00 Test Item Value Reference Range Interpretation Comments Eosinophils # (test code 0.1 See_Comment [A utomated message] The = Eosinophils #) system whic h generated this result tra nsmitted reference range : <=0.5. The reference r annemarie was not used to int erpret this result as normal/abnormal . [facility] HospitalHmqljliWFQMKIQIRX9664-94-02 02:38:00 Test Item Value Reference Range Interpretation Comments Lymphocytes (test code = Lymphocytes) 26.3 20.0-40.0 [facility] HospitalKqcwmjhTMIRNTUYTX1423-23-41 02:38:00 Test Item Value Reference Range Interpretation Comments Segs (test code = Segs) 63.1 45.0-75.0 [facility] HospitalUysryylMBMRARHQNQ3646-62-57 02:38:00 Test Item Value Reference Range Interpretation Comments WBC (test code = WBC) 6.6 3.7-10.4 [facility] HospitalOvjbtahXMNDSHIBVG7588-84-72 02:38:00 Test Item Value Reference Range Interpretation Comments Hct (test code = Hct) 42.9 42.0-54.0 [facility] HospitalDuuczmmRWEDLMVNQK7144-98-05 02:38:00 Test Item Value Reference Range Interpretation Comments RBC (test code = RBC) 4.86 4.70-6.10 [facility] HospitalHnermgaUBDXKIHRWH1919-44-30 02:38:00 Test Item Value Reference Range Interpretation Comments Hgb (test code = Hgb) 14.4 14.0-18.0 [facility] HospitalSncvvpxZYQEJBGOLP4049-27-50 02:38:00 Test Item Value Reference Range Interpretation Comments MCV (test code = MCV) 88.3 80.0-94.0 [facility]UunhympZIACPBBWCV8447-41-64 02:38:00 Test Item Value Reference Range Interpretation Comments MCH (test code = MCH) 29.6 pg 27.0-31.0 [facility] HospitalEowsfhuRGHWCGTDSY6168-30-82 02:38:00 Test Item Value Reference Range Interpretation Comments MCHC (test code = MCHC) 33.6 32.0-36.0 [facility]UsgfxhyQLEIWOFPEF5014-83-31 02:38:00 Test Item Value Reference Range Interpretation Comments MPV (test code = MPV) 9.4 7.4-10.4 [facility] HospitalEmloikoRAATHTGQON2005-00-56 02:38:00 Test Item Value Reference Range Interpretation Comments RDW (test code = RDW) 13.4 11.5-14.5 [facility] HospitalAkvqqwvNNMSMUSFYM9830-78-36 02:38:00 Test Item Value Reference Range Interpretation Comments Platelet (test code = Platelet) 145 133-450 [facility] TaylorDwhpkcjVNLAXKQQMO8905-81-29 02:38:00 Test Item Value Reference Range Interpretation Comments Salicylate Lvl (test no gt See_Comment [Autom ated message] The code = Salicylate Lvl) syste m which generated this result tra nsmitted reference range : <=30.0. The reference r annemarie was not used to int erpret this result as normal/abnormal . [facility]ZbvfgxpMLIUBHMOLL3099-43-75 02:38:00 Test Item Value Reference Range Interpretation Comments Acetaminoph Lvl (test code (04/06/16 8:38 PM) 10-20 = Acetaminoph Lvl) [id number] 02:38:00 Test Item Value Reference Range Interpretation Comments Influ B (test code = Negative (04/06/16 8:38 Influ B) PM) [facility] MBMJQTCB4885-07-65 02:38:00 Test Item Value Reference Range Interpretation Comments Influ A (test code = Negative (04/06/16 8:38 Influ A) PM) [facility] HospitalFiepopvDILBOBBHZ9647-61-71 06:42:00 Test Item Value Reference Range Interpretation Comments Albumin Lvl (test code = Albumin Lvl) 3.9 3.5-5.0 N [facility]YxnfnobGALNWOKKD0974-80-17 06:42:00 Test Item Value Reference Range Interpretation Comments Alk Phos (test code = Alk Phos) 47 39-136 N [facility] CenterDnyrhlbCKGKWLWJN5965-90-09 06:42:00 Test Item Value Reference Range Interpretation Comments Total Protein (test code = Total 6.4 6.4-8.4 N Protein) [facility] CenterLmvvtpqKILTIBIWN3234-90-59 06:42:00 Test Item Value Reference Range Interpretation Comments AST (test code = AST) 31 See_Comment N [Auto mated message] The system which ge nerated this result transmit abdelrahman reference range : <=37. The reference range was not used to interpr et this result as gurpreet l/abnormal. [facility] CenterXeosatmCTKQZKBGF7676-27-72 06:42:00 Test Item Value Reference Range Interpretation Comments Calcium Lvl (test code = Calcium Lvl) 9.0 8.5-10.5 N [facility] CenterMwxeuwrJAGPHEVWJ8392-26-59 06:42:00 Test Item Value Reference Range Interpretation Comments Bili Total (test code = Bili Total) 0.4 0.2-1.3 N [facility] CenterPwxmibvXJCQSFSPT3539-13-00 06:42:00 Test Item Value Reference Range Interpretation Comments Chloride Lvl (test code = Chloride Lvl) 104 95-109 N [facility] CenterUmunyzgAEMFHHFDR9163-12-38 06:42:00 Test Item Value Reference Range Interpretation Comments CO2 (test code = CO2) 24 24-32 N [facility] CenterWkaahneBHRKCKTYV8654-80-94 06:42:00 Test Item Value Reference Range Interpretation Comments Sodium Lvl (test code = Sodium Lvl) 141 135-145 N [facility] CenterPsvuryhOCEYYGATH6719-44-20 06:42:00 Test Item Value Reference Range Interpretation Comments Potassium Lvl (test code = Potassium 3.9 3.5-5.1 N Lvl) [facility] CenterLxlerzjQYCYRDANK0117-64-00 06:42:00 Test Item Value Reference Range Interpretation Comments BUN (test code = BUN) 8 7-22 N [facility] CenterQvfiexyUXHUOUTOL3637-92-99 06:42:00 Test Item Value Reference Range Interpretation Comments Creatinine Lvl (test code = Creatinine 1.0 0.5-1.4 N Lvl) [facility] HospitalFceavjfIZKFVLAMLM7167-45-14 06:42:00 Test Item Value Reference Range Interpretation Comments MCH (test code = MCH) 30.2 pg 27.0-31.0 N [facility] HospitalJzvahwlYOTSBDXGWT1779-94-21 06:42:00 Test Item Value Reference Range Interpretation Comments Platelet (test code = Platelet) 134 133-450 N [facility] HospitalOklvezuZZJDNQQBZA3058-57-63 06:42:00 Test Item Value Reference Range Interpretation Comments MPV (test code = MPV) 10.1 7.4-10.4 N [facility] HospitalTbobqwaJUFLBZUTFU8649-13-32 06:42:00 Test Item Value Reference Range Interpretation Comments RDW (test code = RDW) 13.4 11.5-14.5 N [facility] HospitalKbkfzgzTTYXCOOMRC8380-31-32 06:42:00 Test Item Value Reference Range Interpretation Comments Hct (test code = Hct) 39.4 42.0-54.0 L [facility] HospitalWsdgcjxZWBPRZXMVV8544-69-84 06:42:00 Test Item Value Reference Range Interpretation Comments MCV (test code = MCV) 89.5 80.0-94.0 N [facility] HospitalPfebpgjTOSYMMIJCR6081-55-96 06:42:00 Test Item Value Reference Range Interpretation Comments Hgb (test code = Hgb) 13.3 14.0-18.0 L [facility] HospitalGdwoqtkJYJNBWKOIM2421-18-47 06:42:00 Test Item Value Reference Range Interpretation Comments MCHC (test code = MCHC) 33.7 32.0-36.0 N [facility] HospitalAzthdkvZVYAZHNWSG1007-82-66 06:42:00 Test Item Value Reference Range Interpretation Comments WBC (test code = WBC) 12.5 3.7-10.4 H [facility] HospitalIrhhvozJQGWLGITPQ5976-31-89 06:42:00 Test Item Value Reference Range Interpretation Comments RBC (test code = RBC) 4.40 4.70-6.10 L [facility] HospitalPhghkhkAHFMNXGFBS9890-92-65 06:42:00 Test Item Value Reference Range Interpretation Comments Lymphocytes (test code = Lymphocytes) 9.4 20.0-40.0 L [facility] HospitalQguahpeCKOBXFPRLT9913-36-13 06:42:00 Test Item Value Reference Range Interpretation Comments Monocytes (test code = Monocytes) 10.8 2.0-12.0 N [facility] HospitalZbcpdxzQEKEFBQQXN2182-25-60 06:42:00 Test Item Value Reference Range Interpretation Comments Segs (test code = Segs) 79.6 45.0-75.0 H [facility] HospitalNlbfcgwCPNQWZDIIK8209-93-43 06:42:00 Test Item Value Reference Range Interpretation Comments Eosinophils (test code = 0.1 See_Comment N [A utomated message] The Eosinophils) system which ge nerated this result tra nsmitted reference range : <=4.0. The reference r annemarie was not used to int erpret this result as normal/abnormal . [facility] HospitalLwroraxZKKDEFCYRA6135-12-88 06:42:00 Test Item Value Reference Range Interpretation Comments Basophils (test code = 0.1 See_Comment N [Aut omated message] The Basophils) system which ge nerated this result tra nsmitted reference range : <=1.0. The reference r annemarie was not used to int erpret this result as normal/abnormal . [facility] HospitalGyoyquaLTADQBLZYU7769-91-53 06:42:00 Test Item Value Reference Range Interpretation Comments Segs-Bands # (test code = Segs-Bands #) 9.9 1.5-8.1 H [facility] HospitalYmpkxkoFWSSOAUAWQ2153-05-26 06:42:00 Test Item Value Reference Range Interpretation Comments Lymphocytes # (test code = Lymphocytes 1.2 1.0-5.5 N #) [facility] HospitalNqawzihUALCSJSNWD8606-08-73 06:42:00 Test Item Value Reference Range Interpretation Comments Monocytes # (test code 1.3 See_Comment H [Aut omated message] The = Monocytes #) system which generated this result tra nsmitted reference range : <=0.8. The reference r annemarie was not used to int erpret this result as normal/abnormal . [facility] CenterNfxpejdVNRPKNTRX2251-77-92 06:42:00 Test Item Value Reference Range Interpretation Comments B/C Ratio (test code = B/C Ratio) 8 6-25 N [facility] CenterZgmutlmUMBMYLRKW1899-23-65 06:42:00 Test Item Value Reference Range Interpretation Comments Globulin (test code = Globulin) 2.5 2.0-4.0 N [facility] CenterRnqsifgZRNRQWSZF6009-99-68 06:42:00 Test Item Value Reference Range Interpretation Comments AGAP (test code = AGAP) 16.9 10.0-20.0 N [facility] CenterBazootgMXUCYYISV6187-06-24 06:42:00 Test Item Value Reference Range Interpretation Comments A/G Ratio (test code = A/G Ratio) 1.6 0.7-1.6 N [facility] CenterEenoffcVSTBJEOEI0335-79-89 06:42:00 Test Item Value Reference Range Interpretation Comments eGFR (test code = eGFR) 105 [facility] CenterDdhbelkXUJISOFXF3831-77-44 06:42:00 Test Item Value Reference Range Interpretation Comments Glucose Lvl (test code = Glucose Lvl) 109 70-99 H [facility] CenterUlzycgtLAAPRPEQU4492-43-08 06:42:00 Test Item Value Reference Range Interpretation Comments ALT (test code = ALT) 26 See_Comment N [Auto mated message] The system which ge nerated this result transmit abdelrahman reference range : <=65. The reference range was not used to interpr et this result as gurpreet l/abnormal. [facility] CenterXkpggmbJIFYLDVSC6273-79-81 06:42:00 Test Item Value Reference Range Interpretation Comments Albumin Lvl (test code = Albumin Lvl) 3.9 3.5-5.0 N [facility] CenterUovsoprUYLZTUVZB9796-78-56 06:42:00 Test Item Value Reference Range Interpretation Comments Alk Phos (test code = Alk Phos) 47 39-136 N [facility] CenterHwwtlrlBMHVJCXAJ3797-76-67 06:42:00 Test Item Value Reference Range Interpretation Comments Total Protein (test code = Total 6.4 6.4-8.4 N Protein) [facility] CenterIcuyybmSCSCFVPHX6663-01-08 06:42:00 Test Item Value Reference Range Interpretation Comments AST (test code = AST) 31 See_Comment N [Auto mated message] The system which ge nerated this result transmit abdelrahman reference range : <=37. The reference range was not used to interpr et this result as gurpreet l/abnormal. [facility] CenterQloshxxMFQJTIOXW3446-87-20 06:42:00 Test Item Value Reference Range Interpretation Comments Calcium Lvl (test code = Calcium Lvl) 9.0 8.5-10.5 N [facility] CenterDqltmgmOLCEQDFBR6552-48-36 06:42:00 Test Item Value Reference Range Interpretation Comments Bili Total (test code = Bili Total) 0.4 0.2-1.3 N [facility] CenterJsahlgbDQNDKECQJ6304-06-30 06:42:00 Test Item Value Reference Range Interpretation Comments Chloride Lvl (test code = Chloride Lvl) 104 95-109 N [facility] CenterKywsboyYSIKXZECZ6608-80-12 06:42:00 Test Item Value Reference Range Interpretation Comments CO2 (test code = CO2) 24 24-32 N [facility] CenterFgmayxeTPCYRXDKG1851-11-51 06:42:00 Test Item Value Reference Range Interpretation Comments Sodium Lvl (test code = Sodium Lvl) 141 135-145 N [facility] CenterTudirhkFNQOCWNFM8550-62-79 06:42:00 Test Item Value Reference Range Interpretation Comments Potassium Lvl (test code = Potassium 3.9 3.5-5.1 N Lvl) [facility] CenterImtahwbAIIWWGTUG0356-66-44 06:42:00 Test Item Value Reference Range Interpretation Comments BUN (test code = BUN) 8 7-22 N [facility] CenterZvpcyhyWSDBFMUUN0359-34-56 06:42:00 Test Item Value Reference Range Interpretation Comments Creatinine Lvl (test code = Creatinine 1.0 0.5-1.4 N Lvl) [facility] HospitalVghedynCFJGMPUSWV9199-20-16 06:42:00 Test Item Value Reference Range Interpretation Comments MCH (test code = MCH) 30.2 pg 27.0-31.0 N [facility] HospitalLpylazhDXYVIAZQLQ8428-59-11 06:42:00 Test Item Value Reference Range Interpretation Comments Platelet (test code = Platelet) 134 133-450 N [facility] HospitalIqimvheSEEBCOOZVC9541-36-44 06:42:00 Test Item Value Reference Range Interpretation Comments MPV (test code = MPV) 10.1 7.4-10.4 N [facility] HospitalKrismgxETUXNVPUJY7653-89-13 06:42:00 Test Item Value Reference Range Interpretation Comments RDW (test code = RDW) 13.4 11.5-14.5 N [facility] HospitalHvidnicWWYMKPBERP2081-41-66 06:42:00 Test Item Value Reference Range Interpretation Comments Hct (test code = Hct) 39.4 42.0-54.0 L [facility] HospitalEvqgrbaTLZUGJSZKH4257-92-61 06:42:00 Test Item Value Reference Range Interpretation Comments MCV (test code = MCV) 89.5 80.0-94.0 N [facility] HospitalWggquaaJPWTUFNSGX6535-32-75 06:42:00 Test Item Value Reference Range Interpretation Comments Hgb (test code = Hgb) 13.3 14.0-18.0 L [facility] HospitalVmsercxBIFZJHPJTR0920-72-78 06:42:00 Test Item Value Reference Range Interpretation Comments MCHC (test code = MCHC) 33.7 32.0-36.0 N [facility] HospitalGbsbgltEVMWAXJYKX5127-89-24 06:42:00 Test Item Value Reference Range Interpretation Comments WBC (test code = WBC) 12.5 3.7-10.4 H [facility] HospitalUzdgkhtIJWPQKIZHM3693-67-49 06:42:00 Test Item Value Reference Range Interpretation Comments RBC (test code = RBC) 4.40 4.70-6.10 L [facility] HospitalSocaxwsFDEMUHQLSG1408-15-56 06:42:00 Test Item Value Reference Range Interpretation Comments Lymphocytes (test code = Lymphocytes) 9.4 20.0-40.0 L [facility] HospitalFvizfzzRLWBSFNKUR9684-02-22 06:42:00 Test Item Value Reference Range Interpretation Comments Monocytes (test code = Monocytes) 10.8 2.0-12.0 N [facility] HospitalOhtzjwtHVUSIBHBVG8870-29-47 06:42:00 Test Item Value Reference Range Interpretation Comments Segs (test code = Segs) 79.6 45.0-75.0 H [facility] HospitalPdeqtswZCGOIQJFKJ4195-28-48 06:42:00 Test Item Value Reference Range Interpretation Comments Eosinophils (test code = 0.1 See_Comment N [A utomated message] The Eosinophils) system which ge nerated this result tra nsmitted reference range : <=4.0. The reference r annemarie was not used to int erpret this result as normal/abnormal . [facility] HospitalAcgqogtZQKIWALYHM3992-52-56 06:42:00 Test Item Value Reference Range Interpretation Comments Basophils (test code = 0.1 See_Comment N [Aut omated message] The Basophils) system which ge nerated this result tra nsmitted reference range : <=1.0. The reference r annemarie was not used to int erpret this result as normal/abnormal . [facility] HospitalPoikjotYHONIUPOST1046-43-51 06:42:00 Test Item Value Reference Range Interpretation Comments Segs-Bands # (test code = Segs-Bands #) 9.9 1.5-8.1 H [facility] HospitalNmapmnzBAHOZEWGNT6836-79-26 06:42:00 Test Item Value Reference Range Interpretation Comments Lymphocytes # (test code = Lymphocytes 1.2 1.0-5.5 N #) [facility]OjlthxxNQFONUVABS0353-02-63 06:42:00 Test Item Value Reference Range Interpretation Comments Monocytes # (test code 1.3 See_Comment H [Aut omated message] The = Monocytes #) system which generated this result tra nsmitted reference range : <=0.8. The reference r annemarie was not used to int erpret this result as normal/abnormal . [facility] CenterHvcuichNXASYEDQD3225-57-87 06:42:00 Test Item Value Reference Range Interpretation Comments B/C Ratio (test code = B/C Ratio) 8 6-25 N [facility] CenterToxhttuKJXPRYYNK7989-87-91 06:42:00 Test Item Value Reference Range Interpretation Comments Globulin (test code = Globulin) 2.5 2.0-4.0 N [facility] CenterNjauxquLPUPPCGFJ8100-75-25 06:42:00 Test Item Value Reference Range Interpretation Comments AGAP (test code = AGAP) 16.9 10.0-20.0 N [facility] CenterOehzytfBTJPSRZXY2126-69-53 06:42:00 Test Item Value Reference Range Interpretation Comments A/G Ratio (test code = A/G Ratio) 1.6 0.7-1.6 N [facility] CenterKpapxynCAVOXDFNN4262-34-30 06:42:00 Test Item Value Reference Range Interpretation Comments eGFR (test code = eGFR) 105 [facility] CenterXwqtusqXPAUCVBCS1857-51-52 06:42:00 Test Item Value Reference Range Interpretation Comments Glucose Lvl (test code = Glucose Lvl) 109 70-99 H [facility] CenterAoumhxlLOCCPYVSF0082-31-58 06:42:00 Test Item Value Reference Range Interpretation Comments ALT (test code = ALT) 26 See_Comment N [Auto mated message] The system which ge nerated this result transmit abdelrahman reference range : <=65. The reference range was not used to interpr et this result as gurpreet l/abnormal. [facility] CenterCkmzbmgNJZQBCFZO4915-90-68 06:42:00 Test Item Value Reference Range Interpretation Comments Albumin Lvl (test code = Albumin Lvl) 3.9 3.5-5.0 N [facility] CenterMbrvzavASDJDKBIF7493-62-87 06:42:00 Test Item Value Reference Range Interpretation Comments Alk Phos (test code = Alk Phos) 47 39-136 N [facility] CenterPtloyjeSNTTMTULV0724-99-77 06:42:00 Test Item Value Reference Range Interpretation Comments Total Protein (test code = Total 6.4 6.4-8.4 N Protein) [facility] CenterIqpixgvLRKBHDZHT3134-09-85 06:42:00 Test Item Value Reference Range Interpretation Comments AST (test code = AST) 31 See_Comment N [Auto mated message] The system which ge nerated this result transmit abdelrahman reference range : <=37. The reference range was not used to interpr et this result as gurpreet l/abnormal. [facility] CenterZmycqysOEILBNNKI2314-42-06 06:42:00 Test Item Value Reference Range Interpretation Comments Calcium Lvl (test code = Calcium Lvl) 9.0 8.5-10.5 N [facility] CenterUcnulydQJPLZOINZ4033-10-53 06:42:00 Test Item Value Reference Range Interpretation Comments Bili Total (test code = Bili Total) 0.4 0.2-1.3 N [facility] CenterKienteaQQXVSNZFS1674-29-46 06:42:00 Test Item Value Reference Range Interpretation Comments Chloride Lvl (test code = Chloride Lvl) 104 95-109 N [facility] CenterYfcxcjkFHHCOODVH7917-03-30 06:42:00 Test Item Value Reference Range Interpretation Comments CO2 (test code = CO2) 24 24-32 N [facility] CenterAyuvhvpRCYDNKGSN0580-43-20 06:42:00 Test Item Value Reference Range Interpretation Comments Sodium Lvl (test code = Sodium Lvl) 141 135-145 N [facility] CenterSuikehcHCVEMNHRO5965-71-83 06:42:00 Test Item Value Reference Range Interpretation Comments Potassium Lvl (test code = Potassium 3.9 3.5-5.1 N Lvl) [facility] CenterYmzvexbGALCSSXVR8015-46-68 06:42:00 Test Item Value Reference Range Interpretation Comments BUN (test code = BUN) 8 7-22 N [facility] CenterRmpegtiKFSQTJWWR0611-19-68 06:42:00 Test Item Value Reference Range Interpretation Comments Creatinine Lvl (test code = Creatinine 1.0 0.5-1.4 N Lvl) [facility] HospitalEnxdsarBRQYJTLGUG7024-24-88 06:42:00 Test Item Value Reference Range Interpretation Comments MCH (test code = MCH) 30.2 pg 27.0-31.0 N [facility] HospitalGhsoiadXYWTPTAJVC5543-03-31 06:42:00 Test Item Value Reference Range Interpretation Comments Platelet (test code = Platelet) 134 133-450 N [facility] HospitalQzxltofOXQAJDTVJU0451-56-75 06:42:00 Test Item Value Reference Range Interpretation Comments MPV (test code = MPV) 10.1 7.4-10.4 N [facility] HospitalNirmsnpIPRKVRFXPB3852-33-67 06:42:00 Test Item Value Reference Range Interpretation Comments RDW (test code = RDW) 13.4 11.5-14.5 N [facility] HospitalCgyzqkvCBWEUBEDPV1448-56-20 06:42:00 Test Item Value Reference Range Interpretation Comments Hct (test code = Hct) 39.4 42.0-54.0 L [facility] HospitalIgsgxmfKCAQIFXXVK4046-34-70 06:42:00 Test Item Value Reference Range Interpretation Comments MCV (test code = MCV) 89.5 80.0-94.0 N [facility] HospitalAngjslwWQYIIUZHPQ3924-83-58 06:42:00 Test Item Value Reference Range Interpretation Comments Hgb (test code = Hgb) 13.3 14.0-18.0 L [facility] HospitalMbqspljSVUZFPSZTR3233-53-60 06:42:00 Test Item Value Reference Range Interpretation Comments MCHC (test code = MCHC) 33.7 32.0-36.0 N [facility] HospitalBbflmfdKLRJDCRHFN4477-83-74 06:42:00 Test Item Value Reference Range Interpretation Comments WBC (test code = WBC) 12.5 3.7-10.4 H [facility] HospitalUtmgaboQFKQPFRZNY0602-91-04 06:42:00 Test Item Value Reference Range Interpretation Comments RBC (test code = RBC) 4.40 4.70-6.10 L [facility] HospitalAqkxwniBHTFUEIHCV2773-73-99 06:42:00 Test Item Value Reference Range Interpretation Comments Lymphocytes (test code = Lymphocytes) 9.4 20.0-40.0 L [facility] HospitalNqjqucdDRAJSOJFDK0698-41-19 06:42:00 Test Item Value Reference Range Interpretation Comments Monocytes (test code = Monocytes) 10.8 2.0-12.0 N [facility] HospitalKdldvubLZVGMFKSCJ7294-93-73 06:42:00 Test Item Value Reference Range Interpretation Comments Segs (test code = Segs) 79.6 45.0-75.0 H [facility] HospitalFxrzurnLTTZMLQXPF6032-43-72 06:42:00 Test Item Value Reference Range Interpretation Comments Eosinophils (test code = 0.1 See_Comment N [A utomated message] The Eosinophils) system which ge nerated this result tra nsmitted reference range : <=4.0. The reference r annemarie was not used to int erpret this result as normal/abnormal . [facility] HospitalVegthhhOGFFLJROFR1690-70-87 06:42:00 Test Item Value Reference Range Interpretation Comments Basophils (test code = 0.1 See_Comment N [Aut omated message] The Basophils) system which ge nerated this result tra nsmitted reference range : <=1.0. The reference r annemarie was not used to int erpret this result as normal/abnormal . [facility] HospitalGjloaonNZVCCPWTMY2167-40-34 06:42:00 Test Item Value Reference Range Interpretation Comments Segs-Bands # (test code = Segs-Bands #) 9.9 1.5-8.1 H [facility] HospitalClxrznpNONRBPTPSS7486-05-24 06:42:00 Test Item Value Reference Range Interpretation Comments Lymphocytes # (test code = Lymphocytes 1.2 1.0-5.5 N #) [facility] HospitalSvsaejaJWILASEONU0013-14-16 06:42:00 Test Item Value Reference Range Interpretation Comments Monocytes # (test code 1.3 See_Comment H [Aut omated message] The = Monocytes #) system which generated this result tra nsmitted reference range : <=0.8. The reference r annemarie was not used to int erpret this result as normal/abnormal . [facility] CenterHlplqhuBSWYTDAEU5645-41-12 06:42:00 Test Item Value Reference Range Interpretation Comments B/C Ratio (test code = B/C Ratio) 8 6-25 N [facility] CenterQptnbaqZLCDXKLOM3468-13-51 06:42:00 Test Item Value Reference Range Interpretation Comments Globulin (test code = Globulin) 2.5 2.0-4.0 N [facility] CenterEpvsyviQZPNGADQL6909-47-42 06:42:00 Test Item Value Reference Range Interpretation Comments AGAP (test code = AGAP) 16.9 10.0-20.0 N [facility] CenterVsiezzxNFKTMSNCF8117-96-22 06:42:00 Test Item Value Reference Range Interpretation Comments A/G Ratio (test code = A/G Ratio) 1.6 0.7-1.6 N [facility] CenterHygigcmPRLYJYRKP6094-74-07 06:42:00 Test Item Value Reference Range Interpretation Comments eGFR (test code = eGFR) 105 [facility] CenterAtkuoihEVSHAQDDX9041-97-82 06:42:00 Test Item Value Reference Range Interpretation Comments Glucose Lvl (test code = Glucose Lvl) 109 70-99 H [facility] CenterPofsneyJIEORBKBK2076-42-53 06:42:00 Test Item Value Reference Range Interpretation Comments ALT (test code = ALT) 26 See_Comment N [Auto mated message] The system which ge nerated this result transmit abdelrahman reference range : <=65. The reference range was not used to interpr et this result as gurpreet l/abnormal. [facility] CenterMyymmvjUSRPDGRYK5598-69-53 09:00:49 Test Item Value Reference Range Interpretation Comments Lactic Acid Lvl (test code = Lactic 2.0 0.5-2.2 N Acid Lvl) [facility] CenterGvovgmuWCDANSYQD4374-15-50 09:00:49 Test Item Value Reference Range Interpretation Comments Lactic Acid Lvl (test code = Lactic 2.0 0.5-2.2 N Acid Lvl) [facility] CenterLwcaubbNCCGXDNAQ1167-63-81 09:00:49 Test Item Value Reference Range Interpretation Comments Lactic Acid Lvl (test code = Lactic 2.0 0.5-2.2 N Acid Lvl) [facility] CenterZevrwbeXGEGNYINA7285-44-03 03:30:38 Test Item Value Reference Range Interpretation Comments UDS Note (test code = See Note 5(12/28/2012 N UDS Note) 22:30:38) [facility] CenterOwmsddrRDYYUDGQB6900-99-38 03:30:38 Test Item Value Reference Range Interpretation Comments U Phencyc Scr (test Negative code = U Phencyc Scr) *NA*(12/28/2012 22:30:38) [facility] CenterTtviryyUIIEQUTZP5853-39-11 03:30:38 Test Item Value Reference Range Interpretation Comments U Opiate Scr (test Positive A code = U Opiate Scr) *ABN*(12/28/2012 22:30:38) [facility] CenterVgbzmnlAKRREJMRI5320-15-90 03:30:38 Test Item Value Reference Range Interpretation Comments U Cannab Scr (test Negative code = U Cannab Scr) *NA*(12/28/2012 22:30:38) [facility] CenterJdyyfsiUPXIHIHTW4122-46-31 03:30:38 Test Item Value Reference Range Interpretation Comments U Benzodia Scr (test Negative code = U Benzodia Scr) *NA*(12/28/2012 22:30:38) [facility] CenterRemxevfCNAEMAFNE1065-42-88 03:30:38 Test Item Value Reference Range Interpretation Comments U Odalys Scr (test code Negative *NA*(12/28/2012 = U Odalys Scr) 22:30:38) [facility] CenterUahurwjDAEVTFUTU5418-35-11 03:30:38 Test Item Value Reference Range Interpretation Comments U Amph Scr (test code Negative *NA*(12/28/2012 = U Amph Scr) 22:30:38) [facility] CenterJzmchuxNHQCNFVJI3025-39-49 03:30:38 Test Item Value Reference Range Interpretation Comments U Cocaine Scr (test Negative code = U Cocaine Scr) *NA*(12/28/2012 22:30:38) [facility]NcsoqenZQPHPEFFYL2467-11-05 03:30:38 Test Item Value Reference Range Interpretation Comments UA Ketones (test code Negative mg/dL = UA Ketones) *NA*(12/28/2012 22:30:38) [facility]SlhdoteTZAOMXCVMV9770-75-58 03:30:38 Test Item Value Reference Range Interpretation Comments UA Bili (test code = Negative *NA*(12/28/2012 UA Bili) 22:30:38) [facility]oundNaqolosFHYSMFPFST6433-32-57 03:30:38 Test Item Value Reference Range Interpretation Comments UA Nitrite (test code Negative (12/28/2012 N = UA Nitrite) 22:30:38) [facility]oundEmorefgKQYVHKSQUD9130-12-67 03:30:38 Test Item Value Reference Range Interpretation Comments UA Urobilinogen (test code = UA 0.2 0.1-1.0 N Urobilinogen) [facility]JyuvdrnVXSYTIUWNF5157-66-21 03:30:38 Test Item Value Reference Range Interpretation Comments UA Blood (test code = Negative (12/28/2012 N UA Blood) 22:30:38) [facility]oundRtihzbvXLRYJBCIBE4339-58-94 03:30:38 Test Item Value Reference Range Interpretation Comments UA Leuk Est (test Negative (12/28/2012 N code = UA Leuk Est) 22:30:38) [facility]oundLuejnwuLYHJWTCQUC7006-83-65 03:30:38 Test Item Value Reference Range Interpretation Comments UA pH (test code = UA pH) 7.0 1 5.0-8.0 N [facility] CenterZncatpnNPHCUFWKSZ6366-29-30 03:30:38 Test Item Value Reference Range Interpretation Comments UA Glucose (test code Negative mg/dL N = UA Glucose) (12/28/2012 22:30:38) [facility] CenterNjybjzdGFADQMGBKE3698-75-12 03:30:38 Test Item Value Reference Range Interpretation Comments UA Spec Grav (test code = UA Spec 1.010 1 N Grav) [facility] CenterAkapoqnRUEBVOUYGZ6999-64-30 03:30:38 Test Item Value Reference Range Interpretation Comments UA Protein (test code Negative mg/dL N = UA Protein) (12/28/2012 22:30:38) [facility] CenterJvyylldUYVAMINUWU0581-67-74 03:30:38 Test Item Value Reference Range Interpretation Comments UA Turbidity (test code = Clear (12/28/2012 N UA Turbidity) 22:30:38) [facility] CenterMzpwicmNMURMDWMNT8776-14-98 03:30:38 Test Item Value Reference Range Interpretation Comments UA Color (test code = Yellow *NA*(12/28/2012 UA Color) 22:30:38) [facility] CenterShigtizUIPKVTSCT9115-33-01 03:30:38 Test Item Value Reference Range Interpretation Comments UDS Note (test code = See Note 5(12/28/2012 N UDS Note) 22:30:38) [facility] CenterXerngkmWYTHAXYJF1211-51-70 03:30:38 Test Item Value Reference Range Interpretation Comments U Phencyc Scr (test Negative code = U Phencyc Scr) *NA*(12/28/2012 22:30:38) [facility] CenterLktwifiCXQAKTMSE7080-22-36 03:30:38 Test Item Value Reference Range Interpretation Comments U Opiate Scr (test Positive A code = U Opiate Scr) *ABN*(12/28/2012 22:30:38) [facility] CenterBqwyfrdOJXYOUWKE9626-04-17 03:30:38 Test Item Value Reference Range Interpretation Comments U Cannab Scr (test Negative code = U Cannab Scr) *NA*(12/28/2012 22:30:38) [facility] CenterQmgiotoLUXBXBQYA4039-16-43 03:30:38 Test Item Value Reference Range Interpretation Comments U Benzodia Scr (test Negative code = U Benzodia Scr) *NA*(12/28/2012 22:30:38) [facility] CenterUiwhnmcLYHULODHM8017-64-39 03:30:38 Test Item Value Reference Range Interpretation Comments U Odalys Scr (test code Negative *NA*(12/28/2012 = U Odalys Scr) 22:30:38) [facility] CenterKwcfmkbVIZGGNIXR7806-81-72 03:30:38 Test Item Value Reference Range Interpretation Comments U Amph Scr (test code Negative *NA*(12/28/2012 = U Amph Scr) 22:30:38) [facility] CenterAmzbhizJRQVYUGAV2167-34-02 03:30:38 Test Item Value Reference Range Interpretation Comments U Cocaine Scr (test Negative code = U Cocaine Scr) *NA*(12/28/2012 22:30:38) [facility] CenterOfimzbgKVCSOIDMJP5341-79-13 03:30:38 Test Item Value Reference Range Interpretation Comments UA Ketones (test code Negative mg/dL = UA Ketones) *NA*(12/28/2012 22:30:38) [facility]NqysvgvEBCHFTMYSU2989-26-41 03:30:38 Test Item Value Reference Range Interpretation Comments UA Bili (test code = Negative *NA*(12/28/2012 UA Bili) 22:30:38) [facility]oundTdrjvprXOTKAFQOTK9132-72-65 03:30:38 Test Item Value Reference Range Interpretation Comments UA Nitrite (test code Negative (12/28/2012 N = UA Nitrite) 22:30:38) [facility]oundYtdzicwOUEQGODQQM2029-19-29 03:30:38 Test Item Value Reference Range Interpretation Comments UA Urobilinogen (test code = UA 0.2 0.1-1.0 N Urobilinogen) [facility] HospitalKpndgcoCZHGQZPDHA0976-51-62 03:30:38 Test Item Value Reference Range Interpretation Comments UA Blood (test code = Negative (12/28/2012 N UA Blood) 22:30:38) [facility]oundNpwavkjQFAQEYAOHV0939-81-52 03:30:38 Test Item Value Reference Range Interpretation Comments UA Leuk Est (test Negative (12/28/2012 N code = UA Leuk Est) 22:30:38) [facility]oundXiulcdeOJAFPNZKUK3831-18-31 03:30:38 Test Item Value Reference Range Interpretation Comments UA pH (test code = UA pH) 7.0 1 5.0-8.0 N [facility] CenterXggkqzeSKVMRSQIZO1578-80-07 03:30:38 Test Item Value Reference Range Interpretation Comments UA Glucose (test code Negative mg/dL N = UA Glucose) (12/28/2012 22:30:38) [facility] CenterTytczpxWZQULMXHZC0299-11-92 03:30:38 Test Item Value Reference Range Interpretation Comments UA Spec Grav (test code = UA Spec 1.010 1 N Grav) [facility] CenterRoxqomnRGGKUCGCMG5458-26-25 03:30:38 Test Item Value Reference Range Interpretation Comments UA Protein (test code Negative mg/dL N = UA Protein) (12/28/2012 22:30:38) [facility] CenterVcsjugkFKIXCCPOCO7903-81-05 03:30:38 Test Item Value Reference Range Interpretation Comments UA Turbidity (test code = Clear (12/28/2012 N UA Turbidity) 22:30:38) [facility] CenterYorvfwhKLYVGVVJXA6556-74-27 03:30:38 Test Item Value Reference Range Interpretation Comments UA Color (test code = Yellow *NA*(12/28/2012 UA Color) 22:30:38) [facility] CenterBkncmajUIDQDSSMC8902-50-14 03:30:38 Test Item Value Reference Range Interpretation Comments UDS Note (test code = See Note 5(12/28/2012 N UDS Note) 22:30:38) [facility] CenterRiwzewvVFCJPDBAT7837-48-69 03:30:38 Test Item Value Reference Range Interpretation Comments U Phencyc Scr (test Negative code = U Phencyc Scr) *NA*(12/28/2012 22:30:38) [facility] CenterHhcocfeQFXXIGLUH9543-57-91 03:30:38 Test Item Value Reference Range Interpretation Comments U Opiate Scr (test Positive A code = U Opiate Scr) *ABN*(12/28/2012 22:30:38) [facility] CenterRpblzhoCBLFVHWRN1575-16-65 03:30:38 Test Item Value Reference Range Interpretation Comments U Cannab Scr (test Negative code = U Cannab Scr) *NA*(12/28/2012 22:30:38) [facility] CenterZtvvtiqSEQZHYPTE7084-33-85 03:30:38 Test Item Value Reference Range Interpretation Comments U Benzodia Scr (test Negative code = U Benzodia Scr) *NA*(12/28/2012 22:30:38) [facility] CenterIblsuitRIFYNPYVK5962-60-22 03:30:38 Test Item Value Reference Range Interpretation Comments U Odalys Scr (test code Negative *NA*(12/28/2012 = U Odalys Scr) 22:30:38) [facility] CenterEppmelrHJCBRUIJU9096-44-50 03:30:38 Test Item Value Reference Range Interpretation Comments U Amph Scr (test code Negative *NA*(12/28/2012 = U Amph Scr) 22:30:38) [facility] CenterFzidqawQDJYVCERO3385-92-78 03:30:38 Test Item Value Reference Range Interpretation Comments U Cocaine Scr (test Negative code = U Cocaine Scr) *NA*(12/28/2012 22:30:38) [facility] CenterQgolozoVJWPKUFVHI9362-34-98 03:30:38 Test Item Value Reference Range Interpretation Comments UA Ketones (test code Negative mg/dL = UA Ketones) *NA*(12/28/2012 22:30:38) [facility] CenterQnkepweDHHGRUJDEU8137-12-77 03:30:38 Test Item Value Reference Range Interpretation Comments UA Bili (test code = Negative *NA*(12/28/2012 UA Bili) 22:30:38) [facility] CenterEruowhyKKDCMJAEWM2033-44-39 03:30:38 Test Item Value Reference Range Interpretation Comments UA Nitrite (test code Negative (12/28/2012 N = UA Nitrite) 22:30:38) [facility] CenterIuobqxgTRLHZRYNKE8181-41-74 03:30:38 Test Item Value Reference Range Interpretation Comments UA Urobilinogen (test code = UA 0.2 0.1-1.0 N Urobilinogen) [facility] CenterQlzyxjzKXDCLEZVVD0367-29-89 03:30:38 Test Item Value Reference Range Interpretation Comments UA Blood (test code = Negative (12/28/2012 N UA Blood) 22:30:38) [facility]oundPmaucjsLSCVKJIVSN4066-28-09 03:30:38 Test Item Value Reference Range Interpretation Comments UA Leuk Est (test Negative (12/28/2012 N code = UA Leuk Est) 22:30:38) [facility] CenterLbkesfdJKVUYCCEEC9258-24-06 03:30:38 Test Item Value Reference Range Interpretation Comments UA pH (test code = UA pH) 7.0 1 5.0-8.0 N [facility] CenterWcptomhHSNOBDEFSW8270-00-70 03:30:38 Test Item Value Reference Range Interpretation Comments UA Glucose (test code Negative mg/dL N = UA Glucose) (12/28/2012 22:30:38) [facility] CenterZqpykgsHVIZUXAWVZ7051-59-49 03:30:38 Test Item Value Reference Range Interpretation Comments UA Spec Grav (test code = UA Spec 1.010 1 N Grav) [facility] CenterSquvlfqIMFCRWBEPT2649-48-79 03:30:38 Test Item Value Reference Range Interpretation Comments UA Protein (test code Negative mg/dL N = UA Protein) (12/28/2012 22:30:38) [facility] CenterSdghfguNTQLKWUHCU3508-73-82 03:30:38 Test Item Value Reference Range Interpretation Comments UA Turbidity (test code = Clear (12/28/2012 N UA Turbidity) 22:30:38) [facility] CenterAcizswnLXQVRFVILG0339-65-96 03:30:38 Test Item Value Reference Range Interpretation Comments UA Color (test code = Yellow *NA*(12/28/2012 UA Color) 22:30:38) [facility] CenterQigudflNKBXWAWHYU9194-81-10 03:30:21 Test Item Value Reference Range Interpretation Comments UA Bacteria (test code = None Seen (12/28/2012 N UA Bacteria) 22:30:21) [facility] CenterZxdxzszVNPTZWIYQB6984-38-81 03:30:21 Test Item Value Reference Range Interpretation Comments Micro? (test code = Performed (12/28/2012 N Micro?) 22:30:21) [facility] CenterMmxzrawHZKAFISOYT5527-36-24 03:30:21 Test Item Value Reference Range Interpretation Comments UA Sq Epi (test code = None Seen (12/28/2012 N UA Sq Epi) 22:30:21) [facility] CenterLrzhchyHGPQAGPNKF4757-44-56 03:30:21 Test Item Value Reference Range Interpretation Comments UA WBC (test code = UA 0-2 /HPF (12/28/2012 N WBC) 22:30:21) [facility] CenterAjnxldeWDRFMMWJHX7786-18-88 03:30:21 Test Item Value Reference Range Interpretation Comments UA RBC (test None Seen See_Comment N [Automated mes olga] code = UA RBC) (12/28/2012 The system [facility] 22:30:21) generated this result transmitted ref erence range: <=2. The reference range was not used to int erpret this result as normal/abnormal . [facility]NhkqjuhZXQVRRKOTC6565-94-97 03:30:21 Test Item Value Reference Range Interpretation Comments UA Bacteria (test code = None Seen (12/28/2012 N UA Bacteria) 22:30:21) [facility] HospitalCwpsiqsPNLNWSEACN3526-03-37 03:30:21 Test Item Value Reference Range Interpretation Comments Micro? (test code = Performed (12/28/2012 N Micro?) 22:30:21) [facility] CampusAkuphkwRFCRPVSZJY6363-87-58 03:30:21 Test Item Value Reference Range Interpretation Comments UA Sq Epi (test code = None Seen (12/28/2012 N UA Sq Epi) 22:30:21) [facility] HospitalStsrqumVWLUOGYSYV8427-69-12 03:30:21 Test Item Value Reference Range Interpretation Comments UA WBC (test code = UA 0-2 /HPF (12/28/2012 N WBC) 22:30:21) [facility] HospitalSjvzrbzBVTNKLCSGW9055-24-00 03:30:21 Test Item Value Reference Range Interpretation Comments UA RBC (test None Seen See_Comment N [Automated mes olga] code = UA RBC) (12/28/2012 The system [facility] 22:30:21) generated this result transmitted ref erence range: <=2. The reference range was not used to int erpret this result as normal/abnormal . [facility] CampusIvnekzhMPTFCPKBYR1836-37-86 03:30:21 Test Item Value Reference Range Interpretation Comments UA Bacteria (test code = None Seen (12/28/2012 N UA Bacteria) 22:30:21) [facility] HospitalGhrtlitGKJNQSSYSI3535-22-88 03:30:21 Test Item Value Reference Range Interpretation Comments Micro? (test code = Performed (12/28/2012 N Micro?) 22:30:21) [facility] CampusWyfjbgrTRFFQRNFEZ4102-18-56 03:30:21 Test Item Value Reference Range Interpretation Comments UA Sq Epi (test code = None Seen (12/28/2012 N UA Sq Epi) 22:30:21) [facility] CampusRonqlbaYUTXXDDMEH6560-45-83 03:30:21 Test Item Value Reference Range Interpretation Comments UA WBC (test code = UA 0-2 /HPF (12/28/2012 N WBC) 22:30:21) [facility] LTDOfdweeqLQTPHIDQHU7510-43-53 03:30:21 Test Item Value Reference Range Interpretation Comments UA RBC (test None Seen See_Comment N [Automated mes olga] code = UA RBC) (12/28/2012 The system wh ich 22:30:21) generated this result transmitted ref erence range: <=2. The reference range was not used to int erpret this result as normal/abnormal . [employer] UDJUBQE9113-01-05 02:00:00 Test Item Value Reference Range Interpretation Comments ABO/Rh (test code = ABO/Rh) B NEG [employer] UDCHKKE4769-56-31 02:00:00 Test Item Value Reference Range Interpretation Comments Antibody Scrn (test Negative (12/28/2012 N code = Antibody Scrn) 21:00:00) [employer] OFKEZDA1471-71-08 02:00:00 Test Item Value Reference Range Interpretation Comments ABO/Rh (test code = ABO/Rh) B NEG [employer] OXOZQBX2876-65-31 02:00:00 Test Item Value Reference Range Interpretation Comments Antibody Scrn (test Negative (12/28/2012 N code = Antibody Scrn) 21:00:00) [employer] VNRIAIP8276-66-47 02:00:00 Test Item Value Reference Range Interpretation Comments ABO/Rh (test code = ABO/Rh) B NEG [employer] ZVNPCDA1120-37-19 02:00:00 Test Item Value Reference Range Interpretation Comments Antibody Scrn (test Negative (12/28/2012 N code = Antibody Scrn) 21:00:00) [employer] Auto DetailingIapurltELOFFLRAT0525-37-27 01:56:00 Test Item Value Reference Range Interpretation Comments O2 Sat Frankie (test code = O2 Sat Frankie) 84.6 40.0-70.0 [facility]suhgewXXLOWDBGS1971-55-84 01:56:00 Test Item Value Reference Range Interpretation Comments Temp Frankie (test code = Temp Frankie) 37.0 [facility] WsqvaiwSDRRKYFFG6919-02-69 01:56:00 Test Item Value Reference Range Interpretation Comments BE Frankie (test code = -4 See_Comment L [Automa abdelrahman message] The BE Frankie) system which ge nerated this result transmit abdelrahman reference range : <=2. The reference range was not used to interpr et this result as gurpreet l/abnormal. [facility] CenterNshihzeFQNKAREUZ7717-97-71 01:56:00 Test Item Value Reference Range Interpretation Comments HCO3 Frankie (test code = HCO3 Frankie) 20 22-26 L [facility] CenterJtvqjsuCIVNHXDPR5852-46-45 01:56:00 Test Item Value Reference Range Interpretation Comments pO2 Frankie (test code = pO2 Frankie) 49 20-49 N [facility] CenterUvanbspLGBNBQVFQ1140-46-12 01:56:00 Test Item Value Reference Range Interpretation Comments pH Frankie (test code = pH Frankie) 7.41 7.28-7.42 N [facility] CenterGxaxmksXHYHYBQFX8406-41-07 01:56:00 Test Item Value Reference Range Interpretation Comments pCO2 Frankie (test code = pCO2 Frankie) 31 38-52 L [facility] CenterOdrnglsKOLRKYEWG2382-19-15 01:56:00 Test Item Value Reference Range Interpretation Comments Lactic Acid Lvl (test code = Lactic 4.4 0.5-2.2 H Acid Lvl) [facility] CenterHhsxdypJBWRENCJP5300-92-57 01:56:00 Test Item Value Reference Range Interpretation Comments Ethanol Lvl (test code = Ethanol Lvl) 79 [facility] CenterRtuvdjaNVGHNHLZK3950-33-03 01:56:00 Test Item Value Reference Range Interpretation Comments Etoh (%) (test code = Etoh (%)) 0.079 [facility] CenterTrjmvhiUINKYDBUX9529-06-16 01:56:00 Test Item Value Reference Range Interpretation Comments eGFR (test code = eGFR) 93 [facility] CenterBdkhnzdZBTBTSTHS9870-10-53 01:56:00 Test Item Value Reference Range Interpretation Comments BUN (test code = BUN) 6 7-22 L [facility] CenterWftpnhaVYGJODZIW5244-60-30 01:56:00 Test Item Value Reference Range Interpretation Comments Creatinine Lvl (test code = Creatinine 1.1 0.5-1.4 N Lvl) [facility] CenterIigdqosFKQMAXULR0561-41-30 01:56:00 Test Item Value Reference Range Interpretation Comments Glucose Lvl (test code = Glucose Lvl) 124 70-99 H [facility] CenterOhzlkhwXKLBHYLRA6436-08-95 01:56:00 Test Item Value Reference Range Interpretation Comments Sodium Lvl (test code = Sodium Lvl) 140 135-145 N [facility] CenterBdgrhfbIMUNLOGDX5367-51-46 01:56:00 Test Item Value Reference Range Interpretation Comments Chloride Lvl (test code = Chloride Lvl) 103 95-109 N [facility] CenterLqaktymZZVEZPEET9192-10-75 01:56:00 Test Item Value Reference Range Interpretation Comments CO2 (test code = CO2) 21 24-32 L [facility] CenterHwzxwsgCHLZYUPAJ1738-52-28 01:56:00 Test Item Value Reference Range Interpretation Comments Potassium Lvl (test code = Potassium 3.1 3.5-5.1 L Lvl) [facility] CenterIthqwvnVUARWYKDU3991-80-84 01:56:00 Test Item Value Reference Range Interpretation Comments Calcium Lvl (test code = Calcium Lvl) 8.6 8.5-10.5 N [facility] CenterEisoqlsKBANJUQLX0652-44-84 01:56:00 Test Item Value Reference Range Interpretation Comments AGAP (test code = AGAP) 19.1 10.0-20.0 N [facility] HospitalKwthmgvLZBLMAAAXM4129-53-21 01:56:00 Test Item Value Reference Range Interpretation Comments Estimated % Lysis (test 1.3 See_Comment N [Au tomated message] The code = Estimated % system wh ich generated Lysis) this result tra nsmitted reference range : <=7.5. The reference r annemarie was not used to int erpret this result as normal/abnormal . [facility] HospitalXvvhunkQKUTETAZHF0822-16-43 01:56:00 Test Item Value Reference Range Interpretation Comments K-time (test code = K-time) 2.2 min 0.6-2.3 N [facility] HospitalMoxakptVKTURDPYWL9181-12-64 01:56:00 Test Item Value Reference Range Interpretation Comments Angle (test code = Angle) 64 degrees 64-80 N [facility] HospitalZbzksczMJLWNCBBHE9229-46-11 01:56:00 Test Item Value Reference Range Interpretation Comments Max Amp (test code = Max Amp) 58 mm 52-71 N [facility] HospitalTunzgrpLLOKALNPQX9561-09-03 01:56:00 Test Item Value Reference Range Interpretation Comments R-time (test code = R-time) 0.8 min 0.4-0.7 H [facility] HospitalNtgskxtTDWYPVFHZU1314-49-29 01:56:00 Test Item Value Reference Range Interpretation Comments Split Point (test code = Split Point) 0.6 min [facility] HospitalNvupzkrPBFVPQRFSG6599-03-69 01:56:00 Test Item Value Reference Range Interpretation Comments Rapid TEG Sample Type Citrated Whole Blood (test code = Rapid TEG Sample Type) [facility] HospitalIbpwviuZFKRCMWUMA9981-32-75 01:56:00 Test Item Value Reference Range Interpretation Comments ACT (TEG) (test code = ACT (TEG)) 121 s 86-118 H [facility] HospitalIcsnqlkRXJHEIFDOM1857-74-61 01:56:00 Test Item Value Reference Range Interpretation Comments G-value (test code = G-value) 6.9 5.0-11.6 N [facility] HospitalMavixecBBPNMRYUNW7721-34-39 01:56:00 Test Item Value Reference Range Interpretation Comments Hgb (test code = Hgb) 14.8 14.0-18.0 N [facility] HospitalYvwyghbGCZJUYIBML6475-43-66 01:56:00 Test Item Value Reference Range Interpretation Comments RBC (test code = RBC) 5.05 4.70-6.10 N [facility] HospitalGxzejheOLZQLWGXQW6637-23-91 01:56:00 Test Item Value Reference Range Interpretation Comments Hct (test code = Hct) 44.5 42.0-54.0 N [facility] HospitalYwtmcbyPISXVNLXDL8157-83-35 01:56:00 Test Item Value Reference Range Interpretation Comments WBC (test code = WBC) 11.8 3.7-10.4 H [facility] HospitalCoszxkrCHWOOVFDOX7505-04-50 01:56:00 Test Item Value Reference Range Interpretation Comments MPV (test code = MPV) 9.2 7.4-10.4 N [facility] HospitalNsudbahHLRUMPOOCW0839-12-44 01:56:00 Test Item Value Reference Range Interpretation Comments MCHC (test code = MCHC) 33.2 32.0-36.0 N [facility] HospitalNowmiwmCAJMBMIISO3314-24-20 01:56:00 Test Item Value Reference Range Interpretation Comments MCV (test code = MCV) 88.1 80.0-94.0 N [facility] HospitalSwtjnhaSGVDRVFZBQ6237-19-02 01:56:00 Test Item Value Reference Range Interpretation Comments MCH (test code = MCH) 29.3 pg 27.0-31.0 N [facility] HospitalRlgzjkeZPUBHEVQPR7246-99-69 01:56:00 Test Item Value Reference Range Interpretation Comments Platelet (test code = Platelet) 175 133-450 N [facility] HospitalDwdsgjxAOAWQGYSUI9202-84-95 01:56:00 Test Item Value Reference Range Interpretation Comments RDW (test code = RDW) 12.4 11.5-14.5 N [facility] HospitalCslfvuiAUGSKKPLRG6493-12-66 01:56:00 Test Item Value Reference Range Interpretation Comments Lymphocytes (test code = Lymphocytes) 14.0 20.0-40.0 L [facility] HospitalTkhkirlCMVNUHFNNN2102-02-58 01:56:00 Test Item Value Reference Range Interpretation Comments RBC Morph (test code = Normal (12/28/2012 N RBC Morph) 20:56:00) [facility] HospitalLrgdysmAZJKRWRYKE5922-36-02 01:56:00 Test Item Value Reference Range Interpretation Comments Bands (test code = 6.0 See_Comment N [Automat ed message] The Bands) system which ge nerated this result transmit abdelrahman reference range : <=11.0. The reference r annemarie was not used to interpr et this result as gurpreet l/abnormal. [facility] HospitalAnlrbtpUIKTGESWGH6132-72-84 01:56:00 Test Item Value Reference Range Interpretation Comments Segs (test code = Segs) 72.0 45.0-75.0 N [facility] HospitalXlwtvszVOIOANJZPD4015-89-42 01:56:00 Test Item Value Reference Range Interpretation Comments Monocytes # (test code 0.9 See_Comment H [Aut omated message] The = Monocytes #) system which generated this result tra nsmitted reference range : <=0.8. The reference r annemarie was not used to int erpret this result as normal/abnormal . [facility] HospitalAfzycsrOOHGOAIXQR9133-60-35 01:56:00 Test Item Value Reference Range Interpretation Comments Lymphocytes # (test code = Lymphocytes 1.7 1.0-5.5 N #) [facility] HospitalUvgsmzaGCJTDSKYOB8826-24-27 01:56:00 Test Item Value Reference Range Interpretation Comments Segs-Bands # (test code = Segs-Bands #) 9.2 1.5-8.1 H [facility] HospitalVvybhprQMEOGSRWYI7735-36-99 01:56:00 Test Item Value Reference Range Interpretation Comments Monocytes (test code = Monocytes) 8.0 2.0-12.0 N [facility] HospitalZraioftXLPCZSTSLS6269-04-66 01:56:00 Test Item Value Reference Range Interpretation Comments Atypical Lymphs (test code = Atypical 0.0 N Lymphs) [facility] [facility]rFBGFISNZSZ5367-11-27 01:56:00 Test Item Value Reference Range Interpretation Comments Plt Morph (test code = Normal (12/28/2012 N Plt Morph) 20:56:00) [facility]WwuooelALIVGUXDA0360-30-58 01:56:00 Test Item Value Reference Range Interpretation Comments O2 Sat Frankie (test code = O2 Sat Frankie) 84.6 40.0-70.0 H [facility] CenterNxbondmVKIZACZYK1986-49-08 01:56:00 Test Item Value Reference Range Interpretation Comments Temp Frankie (test code = Temp Frankie) 37.0 [facility] CenterPgxvbaiVAHEABEYG2607-65-04 01:56:00 Test Item Value Reference Range Interpretation Comments BE Frankie (test code = -4 See_Comment L [Automa abdelrahman message] The BE Frankie) system which ge nerated this result transmit abdelrahman reference range : <=2. The reference range was not used to interpr et this result as gurpreet l/abnormal. [facility] CenterWzsxsynBPDZZPTIA3889-71-27 01:56:00 Test Item Value Reference Range Interpretation Comments HCO3 Frankie (test code = HCO3 Frankie) 20 22-26 L [facility] CenterEnsgdrdHKYUHMFUU3178-44-65 01:56:00 Test Item Value Reference Range Interpretation Comments pO2 Frankie (test code = pO2 Frankie) 49 20-49 N [facility] CenterJvqzvwhXOMFICLJE6771-32-47 01:56:00 Test Item Value Reference Range Interpretation Comments pH Frankie (test code = pH Frankie) 7.41 7.28-7.42 N [facility] CenterFvzgqtnMWZTQPDYA9410-01-16 01:56:00 Test Item Value Reference Range Interpretation Comments pCO2 Frankie (test code = pCO2 Frankie) 31 38-52 L [facility] CenterTyktwjnCVHHBNHNS5943-17-64 01:56:00 Test Item Value Reference Range Interpretation Comments Lactic Acid Lvl (test code = Lactic 4.4 0.5-2.2 H Acid Lvl) [facility] CenterPgetrvxFDCOPOIHF1498-89-10 01:56:00 Test Item Value Reference Range Interpretation Comments Ethanol Lvl (test code = Ethanol Lvl) 79 [facility] CenterGqglcjzLWEAICYUZ6334-61-93 01:56:00 Test Item Value Reference Range Interpretation Comments Etoh (%) (test code = Etoh (%)) 0.079 [facility] CenterFfeluvdFFENZESWC4524-12-71 01:56:00 Test Item Value Reference Range Interpretation Comments eGFR (test code = eGFR) 93 [facility] CenterOibbabaFUDMSZICB8072-61-60 01:56:00 Test Item Value Reference Range Interpretation Comments BUN (test code = BUN) 6 7-22 L [facility] CenterTnqxmevVSWYFIXNR1949-87-08 01:56:00 Test Item Value Reference Range Interpretation Comments Creatinine Lvl (test code = Creatinine 1.1 0.5-1.4 N Lvl) [facility] CenterDajzmffQBKFONHEU5068-20-19 01:56:00 Test Item Value Reference Range Interpretation Comments Glucose Lvl (test code = Glucose Lvl) 124 70-99 H [facility] CenterEdqyyqpEIHNFMIXX8414-12-30 01:56:00 Test Item Value Reference Range Interpretation Comments Sodium Lvl (test code = Sodium Lvl) 140 135-145 N [facility] CenterWvwqxjjHIAWUFLOX2615-07-56 01:56:00 Test Item Value Reference Range Interpretation Comments Chloride Lvl (test code = Chloride Lvl) 103 95-109 N [facility] CenterDosgvqpBVPKYKGGL8812-96-49 01:56:00 Test Item Value Reference Range Interpretation Comments CO2 (test code = CO2) 21 24-32 L [facility] CenterLfycendAUHJPBKUC3109-21-81 01:56:00 Test Item Value Reference Range Interpretation Comments Potassium Lvl (test code = Potassium 3.1 3.5-5.1 L Lvl) [facility] CenterGlwzzwaZXAGNDAZS9194-23-85 01:56:00 Test Item Value Reference Range Interpretation Comments Calcium Lvl (test code = Calcium Lvl) 8.6 8.5-10.5 N [facility] CenterRaqjuueWGZTEWSKN6623-67-32 01:56:00 Test Item Value Reference Range Interpretation Comments AGAP (test code = AGAP) 19.1 10.0-20.0 N [facility] HospitalMlnmyydNOORZWZHHS5597-19-44 01:56:00 Test Item Value Reference Range Interpretation Comments Estimated % Lysis (test 1.3 See_Comment N [Au tomated message] The code = Estimated % system wh ich generated Lysis) this result tra nsmitted reference range : <=7.5. The reference r annemarie was not used to int erpret this result as normal/abnormal . [facility] HospitalXsaveemVNJGZQXMFY7729-47-71 01:56:00 Test Item Value Reference Range Interpretation Comments K-time (test code = K-time) 2.2 min 0.6-2.3 N [facility] HospitalEubfielDDQMBITBJA1052-74-62 01:56:00 Test Item Value Reference Range Interpretation Comments Angle (test code = Angle) 64 degrees 64-80 N [facility] HospitalZnhbcemXMTDJCPHYE5369-32-15 01:56:00 Test Item Value Reference Range Interpretation Comments Max Amp (test code = Max Amp) 58 mm 52-71 N [facility] HospitalDttmtjjLRMJMNRWZO0336-28-56 01:56:00 Test Item Value Reference Range Interpretation Comments R-time (test code = R-time) 0.8 min 0.4-0.7 H [place] [address]-08-31 01:56:00 Test Item Value Reference Range Interpretation Comments Split Point (test code = Split Point) 0.6 min [facility] HospitalXtlfuymTAUPUUQKOY8696-01-34 01:56:00 Test Item Value Reference Range Interpretation Comments Rapid TEG Sample Type Citrated Whole Blood (test code = Rapid TEG Sample Type) [facility] HospitalHyiirvgMCJXWZCIHT8041-08-84 01:56:00 Test Item Value Reference Range Interpretation Comments ACT (TEG) (test code = ACT (TEG)) 121 s 86-118 H [facility] HospitalDlceduvJQEVZSKPRY4351-24-46 01:56:00 Test Item Value Reference Range Interpretation Comments G-value (test code = G-value) 6.9 5.0-11.6 N [facility] HospitalCbwipssQKXVPCFJHR3046-13-68 01:56:00 Test Item Value Reference Range Interpretation Comments Hgb (test code = Hgb) 14.8 14.0-18.0 N [facility] HospitalCqzwpckACQQLXQETH4119-77-17 01:56:00 Test Item Value Reference Range Interpretation Comments RBC (test code = RBC) 5.05 4.70-6.10 N [facility] HospitalMjdwkluSMOZWAFDVJ2295-73-20 01:56:00 Test Item Value Reference Range Interpretation Comments Hct (test code = Hct) 44.5 42.0-54.0 N [facility] HospitalZqpetddXJXYQOBBBK9185-16-62 01:56:00 Test Item Value Reference Range Interpretation Comments WBC (test code = WBC) 11.8 3.7-10.4 H [facility] HospitalEofnakhOEHPXSKDKC8564-90-80 01:56:00 Test Item Value Reference Range Interpretation Comments MPV (test code = MPV) 9.2 7.4-10.4 N [place] [address]-08-31 01:56:00 Test Item Value Reference Range Interpretation Comments MCHC (test code = MCHC) 33.2 32.0-36.0 N [facility] HospitalDeqgscjDVVEALDACX8782-10-44 01:56:00 Test Item Value Reference Range Interpretation Comments MCV (test code = MCV) 88.1 80.0-94.0 N [facility] HospitalXogrxzxIZAKISJSTU1432-28-35 01:56:00 Test Item Value Reference Range Interpretation Comments MCH (test code = MCH) 29.3 pg 27.0-31.0 N [facility] HospitalUagtsurLQROFYZYMH0150-28-78 01:56:00 Test Item Value Reference Range Interpretation Comments Platelet (test code = Platelet) 175 133-450 N [facility] HospitalAfujyipSUEJNASUBC8236-04-50 01:56:00 Test Item Value Reference Range Interpretation Comments RDW (test code = RDW) 12.4 11.5-14.5 N [facility] HospitalNdmnjqiWAFPICLYEG2387-20-85 01:56:00 Test Item Value Reference Range Interpretation Comments Lymphocytes (test code = Lymphocytes) 14.0 20.0-40.0 L [facility] HospitalTkwddueNJVJPLGAIC3232-40-88 01:56:00 Test Item Value Reference Range Interpretation Comments RBC Morph (test code = Normal (12/28/2012 N RBC Morph) 20:56:00) [facility] HospitalPuewqvwOUXVBTFXAB0532-48-92 01:56:00 Test Item Value Reference Range Interpretation Comments Bands (test code = 6.0 See_Comment N [Automat ed message] The Bands) system which ge nerated this result transmit abdelrahman reference range : <=11.0. The reference r annemarie was not used to interpr et this result as gurpreet l/abnormal. [facility] HospitalXjmbcjdFCSYWZKUGR9104-25-62 01:56:00 Test Item Value Reference Range Interpretation Comments Segs (test code = Segs) 72.0 45.0-75.0 N [facility] HospitalFkzinzvDIKZJTTMVV1311-54-78 01:56:00 Test Item Value Reference Range Interpretation Comments Monocytes # (test code 0.9 See_Comment H [Aut omated message] The = Monocytes #) system which generated this result tra nsmitted reference range : <=0.8. The reference r annemarie was not used to int erpret this result as normal/abnormal . [facility] HospitalCehrrmiEUJYVWLRBH7058-83-80 01:56:00 Test Item Value Reference Range Interpretation Comments Lymphocytes # (test code = Lymphocytes 1.7 1.0-5.5 N #) [facility] HospitalAolfjcrSGJRBAWFSV9679-47-93 01:56:00 Test Item Value Reference Range Interpretation Comments Segs-Bands # (test code = Segs-Bands #) 9.2 1.5-8.1 H [facility] HospitalPxblysySRQAKKBFEN5257-97-47 01:56:00 Test Item Value Reference Range Interpretation Comments Monocytes (test code = Monocytes) 8.0 2.0-12.0 N [facility] HospitalQzjyjjtPYVXBENFTW4452-79-74 01:56:00 Test Item Value Reference Range Interpretation Comments Atypical Lymphs (test code = Atypical 0.0 N Lymphs) [facility] HospitalLlzniiuDJUOODRBAL8923-20-88 01:56:00 Test Item Value Reference Range Interpretation Comments Plt Morph (test code = Normal (12/28/2012 N Plt Morph) 20:56:00) [facility] CenterRkhlwwqFYOVZTITO3614-36-61 01:56:00 Test Item Value Reference Range Interpretation Comments O2 Sat Frankie (test code = O2 Sat Frankie) 84.6 40.0-70.0 H [facility] CenterWrpdxxwTYFPSRPDM2035-15-62 01:56:00 Test Item Value Reference Range Interpretation Comments Temp Frankie (test code = Temp Frankie) 37.0 [facility] CenterIjcxkklLIKNEXCRF7790-88-30 01:56:00 Test Item Value Reference Range Interpretation Comments BE Frankie (test code = -4 See_Comment L [Automa abdelrahman message] The BE Frankie) system which ge nerated this result transmit abdelrahman reference range : <=2. The reference range was not used to interpr et this result as gurpreet l/abnormal. [facility] CenterZaqqgxkJAVREDKCE3531-40-25 01:56:00 Test Item Value Reference Range Interpretation Comments HCO3 Frankie (test code = HCO3 Frankie) 20 22-26 L [facility] CenterVbkzakfWNZMNTLWX5818-66-22 01:56:00 Test Item Value Reference Range Interpretation Comments pO2 Frankie (test code = pO2 Frankie) 49 20-49 N [facility] CenterFkfftmyRRMJEDKKU6261-07-51 01:56:00 Test Item Value Reference Range Interpretation Comments pH Frankie (test code = pH Frankie) 7.41 7.28-7.42 N [facility] CenterEwdmbcjPAEEULXVR3225-31-24 01:56:00 Test Item Value Reference Range Interpretation Comments pCO2 Frankie (test code = pCO2 Frankie) 31 38-52 L [facility] CenterCnhisyeSUTXQGNCU9984-97-11 01:56:00 Test Item Value Reference Range Interpretation Comments Lactic Acid Lvl (test code = Lactic 4.4 0.5-2.2 H Acid Lvl) [facility] CenterGjtooxhVBNOMYHOW3970-03-88 01:56:00 Test Item Value Reference Range Interpretation Comments Ethanol Lvl (test code = Ethanol Lvl) 79 [facility] CenterUpbdgefVQYZRKWKC2754-54-22 01:56:00 Test Item Value Reference Range Interpretation Comments Etoh (%) (test code = Etoh (%)) 0.079 [facility] CenterLuyqeflFCHPNPPCV6449-11-94 01:56:00 Test Item Value Reference Range Interpretation Comments eGFR (test code = eGFR) 93 [facility] CenterIkmhkebMNQIHARIF1603-07-96 01:56:00 Test Item Value Reference Range Interpretation Comments BUN (test code = BUN) 6 7-22 L [facility] CenterRylngpoFPOSOKPYW3657-52-53 01:56:00 Test Item Value Reference Range Interpretation Comments Creatinine Lvl (test code = Creatinine 1.1 0.5-1.4 N Lvl) [facility] CenterXdyiffuCQNHODHTS2847-60-26 01:56:00 Test Item Value Reference Range Interpretation Comments Glucose Lvl (test code = Glucose Lvl) 124 70-99 H [facility] CenterPtbffhrOBWNZFOFC0230-73-90 01:56:00 Test Item Value Reference Range Interpretation Comments Sodium Lvl (test code = Sodium Lvl) 140 135-145 N [facility] CenterHxmkleoMBOLORRPN0564-12-52 01:56:00 Test Item Value Reference Range Interpretation Comments Chloride Lvl (test code = Chloride Lvl) 103 95-109 N [facility] CenterCdiklmeFZHWEWAUB0258-62-05 01:56:00 Test Item Value Reference Range Interpretation Comments CO2 (test code = CO2) 21 24-32 L [facility] CenterCvxxkejCCQZFTIOO3549-55-97 01:56:00 Test Item Value Reference Range Interpretation Comments Potassium Lvl (test code = Potassium 3.1 3.5-5.1 L Lvl) [facility] CenterKoaicloOFRALSDYN5819-41-64 01:56:00 Test Item Value Reference Range Interpretation Comments Calcium Lvl (test code = Calcium Lvl) 8.6 8.5-10.5 N [facility] CenterIipbufoYJXEUOPOF2669-56-52 01:56:00 Test Item Value Reference Range Interpretation Comments AGAP (test code = AGAP) 19.1 10.0-20.0 N [facility] HospitalIlxdvvoZMCWROEMTH1177-77-23 01:56:00 Test Item Value Reference Range Interpretation Comments Estimated % Lysis (test 1.3 See_Comment N [Au tomated message] The code = Estimated % system wh ich generated Lysis) this result tra nsmitted reference range : <=7.5. The reference r annemarie was not used to int erpret this result as normal/abnormal . [facility] HospitalIiarnbwKSOBVDJJYV4667-47-53 01:56:00 Test Item Value Reference Range Interpretation Comments K-time (test code = K-time) 2.2 min 0.6-2.3 N [facility] HospitalXcvjofbSMLUELOAYV0675-95-66 01:56:00 Test Item Value Reference Range Interpretation Comments Angle (test code = Angle) 64 degrees 64-80 N [facility] HospitalTstqxiyCBMHPWHSTH1022-51-18 01:56:00 Test Item Value Reference Range Interpretation Comments Max Amp (test code = Max Amp) 58 mm 52-71 N [facility] HospitalCmhchygTIKBUDOAGM6663-38-07 01:56:00 Test Item Value Reference Range Interpretation Comments R-time (test code = R-time) 0.8 min 0.4-0.7 H [facility] HospitalHlbwhajWXHTEUAGBT2247-48-01 01:56:00 Test Item Value Reference Range Interpretation Comments Split Point (test code = Split Point) 0.6 min [facility] HospitalMtllqzlJKQXROFXGB8276-19-23 01:56:00 Test Item Value Reference Range Interpretation Comments Rapid TEG Sample Type Citrated Whole Blood (test code = Rapid TEG Sample Type) [facility] HospitalPiebwqsMQLUFEUCRY7454-89-48 01:56:00 Test Item Value Reference Range Interpretation Comments ACT (TEG) (test code = ACT (TEG)) 121 s 86-118 H [facility] HospitalLqzkprcIDEOVTNKEX7433-54-30 01:56:00 Test Item Value Reference Range Interpretation Comments G-value (test code = G-value) 6.9 5.0-11.6 N [facility] HospitalLhlzakpIXAJKIMYNH4034-64-37 01:56:00 Test Item Value Reference Range Interpretation Comments Hgb (test code = Hgb) 14.8 14.0-18.0 N [facility] HospitalAochcuuIPMSOOORAF8983-49-09 01:56:00 Test Item Value Reference Range Interpretation Comments RBC (test code = RBC) 5.05 4.70-6.10 N [facility] HospitalOqjsskaLBRRGQZSVV1348-02-18 01:56:00 Test Item Value Reference Range Interpretation Comments Hct (test code = Hct) 44.5 42.0-54.0 N [facility] HospitalKmjedwgCECKALBUCS8269-63-85 01:56:00 Test Item Value Reference Range Interpretation Comments WBC (test code = WBC) 11.8 3.7-10.4 H [facility] HospitalGrxgngjYHNAOKKWAE7968-45-17 01:56:00 Test Item Value Reference Range Interpretation Comments MPV (test code = MPV) 9.2 7.4-10.4 N [facility] HospitalPhszawtAWYUXPRGBE4000-61-21 01:56:00 Test Item Value Reference Range Interpretation Comments MCHC (test code = MCHC) 33.2 32.0-36.0 N [facility] HospitalHfepxnlTJGYOPNIJZ5467-02-87 01:56:00 Test Item Value Reference Range Interpretation Comments MCV (test code = MCV) 88.1 80.0-94.0 N [facility] HospitalQilopeuETNRMTXOUP0170-81-10 01:56:00 Test Item Value Reference Range Interpretation Comments MCH (test code = MCH) 29.3 pg 27.0-31.0 N [facility] HospitalVlufagrPZJSNFEMAR5079-76-69 01:56:00 Test Item Value Reference Range Interpretation Comments Platelet (test code = Platelet) 175 133-450 N [facility] HospitalZlhnujcRYGXHUZRXZ4985-79-80 01:56:00 Test Item Value Reference Range Interpretation Comments RDW (test code = RDW) 12.4 11.5-14.5 N [facility] HospitalPedngppNZCOYBSQYZ0470-44-80 01:56:00 Test Item Value Reference Range Interpretation Comments Lymphocytes (test code = Lymphocytes) 14.0 20.0-40.0 L [facility] HospitalDijtgznCJETVRQEDY9008-47-77 01:56:00 Test Item Value Reference Range Interpretation Comments RBC Morph (test code = Normal (12/28/2012 N RBC Morph) 20:56:00) [facility] HospitalKsebdcrRZMHAPOKDF1903-09-58 01:56:00 Test Item Value Reference Range Interpretation Comments Bands (test code = 6.0 See_Comment N [Automat ed message] The Bands) system which ge nerated this result transmit abdelrahman reference range : <=11.0. The reference r annemarie was not used to interpr et this result as gurpreet l/abnormal. [facility] HospitalNtgfhphRFEAOODMGL0845-10-38 01:56:00 Test Item Value Reference Range Interpretation Comments Segs (test code = Segs) 72.0 45.0-75.0 N [facility] HospitalMxlsnyiXOBYKYPERI6929-51-52 01:56:00 Test Item Value Reference Range Interpretation Comments Monocytes # (test code 0.9 See_Comment H [Aut omated message] The = Monocytes #) system which generated this result tra nsmitted reference range : <=0.8. The reference r annemarie was not used to int erpret this result as normal/abnormal . [facility] HospitalRypasssEIIYJLDXCH3684-99-24 01:56:00 Test Item Value Reference Range Interpretation Comments Lymphocytes # (test code = Lymphocytes 1.7 1.0-5.5 N #) [facility] HospitalBrqoikjGXCNNAWNHG3820-24-16 01:56:00 Test Item Value Reference Range Interpretation Comments Segs-Bands # (test code = Segs-Bands #) 9.2 1.5-8.1 H [facility] HospitalRtucisdBILXMWOKXJ4664-44-47 01:56:00 Test Item Value Reference Range Interpretation Comments Monocytes (test code = Monocytes) 8.0 2.0-12.0 N [facility] HospitalEtgvispJBHBFDCFYM4402-00-80 01:56:00 Test Item Value Reference Range Interpretation Comments Atypical Lymphs (test code = Atypical 0.0 N Lymphs) [facility] HospitalXwtqohoZURWXYZHKI6959-00-53 01:56:00 Test Item Value Reference Range Interpretation Comments Plt Morph (test code = Normal (12/28/2012 N Plt Morph) 20:56:00) [facility]
--- NOTE | 2022-04-23 15:33 | ER ---
Nurse's Notes [facility] Name: Alex Abbott Age: 32 yrs Sex: Male : 1990 Arrival Date: 04/23/2022 Time: 12:54 Bed 7 Private MD: Diagnosis: Adverse effect of other drugs, medicaments and biological substances Presentation: 04/23 13:06 Chief complaint: Parent and/or Guardian states: "He said that he took a whole box of ph Coricidin cough and cold." Pt appears anxious and shaky in triage, states that he was not trying to harm himself and was trying to get high. Also admits to smoking weed. Coronavirus screen: Vaccine status: Patient reports being unvaccinated. Ebola Screen: No symptoms or risks identified at this time. Initial Sepsis Screen: Does the patient meet any 2 criteria? No. Patient's initial sepsis screen is negative. Does the patient have a suspected source of infection? No. Patient's initial sepsis screen is negative. Risk Assessment: Do you want to hurt yourself or someone else? Patient reports no desire to harm self or others. Onset of symptoms was April 23, 2022. 13:06 Method Of Arrival: Ambulatory ph 13:06 Acuity: ROCIO 2 ph Historical: - Allergies: 13:09 lithium; ph 13:09 quetiapine fumarate; ph 13:09 RISPERIDONE; ph 13:09 ziprasidone HCl; ph - PMHx: 13:09 ADD/ADHD; Anxiety; Bipolar disorder; Depression; drug overdose; Pneumonia; ph Schizophrenia; - Immunization history:: Adult Immunizations unknown, Client reports having NOT received the Covid vaccine. Last tetanus immunization: unknown. - Social history:: Smoking status: Patient reports the use of cigarette tobacco products, smokes one pack cigarettes per day. Screenin:29 [facility] ED Fall Risk Assessment (Adult) History of falling in the last 3 months, db including since admission No falls in past 3 months (0 pts) Confusion or Disorientation No (0 pts) Intoxicated or Sedated No (0 pts) Impaired Gait No (0 pts) Mobility Assist Device Used No (0 pt) Altered Elimination No (0 pt) Score/Fall Risk Level 0 - 2 = Low Risk Oriented to surroundings. Abuse screen: Denies threats or abuse. Denies injuries from another. Nutritional screening: No deficits noted. Tuberculosis screening: No symptoms or risk factors identified. Assessment: 13:26 Reassessment: Patient and/or family updated on plan of care and expected duration. Pain db level reassessed. patient took 16 pills of Coricidin. States was trying to get high. Noted patient has another box of the pills that are full. Denies SI and HI. General: Appears in no apparent distress. Behavior is cooperative. Pain: Denies pain. Neuro: Level of Consciousness is awake, alert, obeys commands, patient appears to be "high" from the medicine. Answers questions appropriately keeps smoking imaginary "blunt" of weed. Cardiovascular: No deficits noted. Respiratory: No deficits noted. Airway is patent Respiratory effort is even, unlabored, Respiratory pattern is regular, symmetrical. GI: No deficits noted. No signs and/or symptoms were reported involving the gastrointestinal system. : No deficits noted. No signs and/or symptoms were reported regarding the genitourinary system. 13:30 Reassessment: Patient appears in no apparent distress at this time. Dad is at bedside. db 13:35 General: Pt denies suicidal ideation. Reports he took a foil pack of Coricidin Cough kb3 and Cold this morning "to get high" and reports he has taken the pills multiple times for the same reason. Pt had a large blue colored folding knife in his pocket that he voluntarily handed to the nurses. The knife was given to pt's father to secure. . 13:40 General: Pt's father reports he has other social obligation this afternoon and will kb3 return later.. 13:40 Reassessment: No changes from previously documented assessment. PATIENT REFUSED IV db ACCESS. NOTIFIED PROVIDER. 13:41 Reassessment: contacted poison control , recommends to observe pt for 6-8 hrs post iw ingestion, draw tox labs, EKG, can give benzos and fluids as needed for tachycardia and hypertension, draw 4 hour acetaminophen if needed. 14:04 General: Pt refusing IV placement, labs, IVF, IV Ativan. Pt removed all monitoring kb3 equipment including EKG leads, BP cuff and O2 sat probe. Pt continues to claim he took the cold tablets to "get high" not to harm himself. . 14:30 General: Pt pacing up and down the hallway, talking on the phone. Refusing to stay in kb3 room. . 15:03 Reassessment: JULIETTE CRAIN notified that pt left from room, pt last seen walking toward [address] 15:03 General: Pt reports he was unable to reach his father to pick him up. This RN offered kb3 to attempt to call him, pt refused. Pt put on his jackets and backpack and began walking out of the ER. Advised pt that he should wait until we can secure him transportation home. Pt continued walking towards exit. Roshan RIVERA notified and advised charge nurse call police as pt is under the influence of drugs and not thinking clearly. JULIETTE CRAIN notified by [employer]. Overdose: 13:33 [place] Suicide Severity Screening: "In the past month, have you wished you were db or wished you could go to sleep and not wake up?" Patient responds "no." "In the past month, have you actually had any thoughts of killing yourself?" Patient responds "no." "In your lifetime, have you ever done anything, started to do anything, or prepared to do anything to end your life?" Patient responds "no.". Vital Signs: 13:06 BP 185 / 171; Pulse 124; Resp 18; Temp 101.1; Pulse Ox 96% on R/A; Weight 54.43 kg; ph 13:26 BP 162 / 102; Pulse 123; Resp 18; Temp 100.2(O); Pulse Ox 98% on R/A; db 13:39 BP 156 / 101; Pulse 117; Resp 18; Temp 99.0(O); Pulse Ox 99% on R/A; iw Jessica Coma Score: 13:35 Eye Response: spontaneous(4). Verbal Response: oriented(5). Motor Response: obeys db commands(6). Total: 15. ED Course: 12:54 Patient arrived in ED. mr 13:09 Triage completed. ph 13:10 Arm band placed on Patient placed in an exam room. ph 13:20 contacted Poison Control and was advised to maintain this pt under observation for 6-8 em1 hrs post ingestion; POC was [facility] at the [facility] . 13:22 Asha Leahy MD is Attending Physician. sd2 13:25 Roshan Wilson PA is PHCP. cp 13:26 Leticia Ayon, RN is Primary Nurse. db 13:29 Patient has correct armband on for positive identification. Bed in low position. Call db light in reach. Side rails up X 1. Pulse ox on. NIBP on. Lights dimmed. 13:30 No provider procedures requiring assistance completed. db 13:34 Family accompanied patient. db 15:04 Patient did not have IV access during this emergency room visit. iw Administered Medications: 15:31 Not Given (Patient Refused): NS 0.9% 1000 ml IV at 1 bolus Per protocol; 1000 mL bolus db 15:31 Not Given (Patient Refused): Ativan (LORazepam) 1 mg IVP once db Medication: 13:30 VIS not applicable for this client. db Outcome: 15:32 Eloped db 15:32 Condition: stable 15:32 Instructed on 15:32 Discharge ordered by . nadira 15:35 Patient left the ED. mm9 Signatures: Katlyn Hawkins Jailene Austin, RN Stevo Chávez em1 Gauri Kiran, RN RN ph Katie, Roshan, PA PA Asha Richards MD MD sd2 Holly Angulo, RN RN kb3 Leticia Ayon, RN Yani Bloom mm9
--- NOTE | 2022-04-23 15:33 | EDPHYS ---
Physician Documentation [facility] Name: Alex Abbott Age: 32 yrs Sex: Male : 1990 Arrival Date: 04/23/2022 Time: 12:54 Bed 7 Private MD: ED Physician Asha Leahy HPI: 04/23 13:30 This 32 yrs old Male presents to ER via Ambulatory with complaints of Overdose. cp 13:30 The patient presents to the emergency department after a known overdose, that was cp intentional. Context: Method: the patient has a confirmed or suspected ingestion, Coricidin Cough and Cold medicine, Time: today, Extent: 1 box of approximately 16 tablets. Associated signs and symptoms: Pertinent negatives: auditory hallucinations, shortness of breath, visual hallucinations, vomiting. Patient reports taking 1 box of 16 tablets of Coricidin Cough and Cold medicine today in attempt to "get high". Patient denies any suicidal ideations. Historical: - Allergies: 13:09 lithium; ph 13:09 quetiapine fumarate; ph 13:09 RISPERIDONE; ph 13:09 ziprasidone HCl; ph - PMHx: 13:09 ADD/ADHD; Anxiety; Bipolar disorder; Depression; drug overdose; Pneumonia; ph Schizophrenia; - Immunization history:: Adult Immunizations unknown, Client reports having NOT received the Covid vaccine. Last tetanus immunization: unknown. - Social history:: Smoking status: Patient reports the use of cigarette tobacco products, smokes one pack cigarettes per day. ROS: 13:35 Constitutional: Positive for fever, poor PO intake. cp 13:35 Eyes: Negative for injury, pain, redness, and discharge. cp 13:35 ENT: Negative for drainage from ear(s), ear pain, sore throat, difficulty swallowing, difficulty handling secretions. 13:35 Cardiovascular: Negative for chest pain. 13:35 Respiratory: Negative for cough, shortness of breath, wheezing. 13:35 Abdomen/GI: Negative for abdominal pain, vomiting, diarrhea, constipation. 13:35 Skin: Negative for cellulitis, rash. 13:35 Neuro: Negative for altered mental status, headache, syncope, weakness. 13:35 All other systems are negative. Exam: 13:40 Constitutional: The patient appears in no acute distress, alert, awake, cp non-diaphoretic, non-toxic, well developed, well nourished. 13:40 Head/Face: Normocephalic, atraumatic. cp 13:40 Eyes: Periorbital structures: appear normal, Conjunctiva: normal, no exudate, no injection, Sclera: no appreciated abnormality, Lids and lashes: appear normal, bilaterally. 13:40 ENT: External ear(s): are unremarkable, Nose: is normal, Mouth: Lips: moist, Oral mucosa: pink and intact, moist, Posterior pharynx: Airway: no evidence of obstruction, patent, erythema, is not appreciated, exudate, is not appreciated, Dental exam: dental caries, that is severe, diffusely. 13:40 Neck: ROM/movement: is normal, is supple, without pain, no range of motions limitations. 13:40 Chest/axilla: Inspection: normal. 13:40 Cardiovascular: Rate: tachycardic, Rhythm: regular, Edema: is not appreciated, JVD: is not appreciated. 13:40 Respiratory: the patient does not display signs of respiratory distress, Respirations: normal, no use of accessory muscles, no retractions, labored breathing, is not present, Breath sounds: are clear throughout, no decreased breath sounds, no stridor, no wheezing. 13:40 Abdomen/GI: Exam negative for discomfort, distension, guarding, Inspection: abdomen appears normal. 13:40 Neuro: Orientation: to person, place, situation, Mentation: able to follow commands, slow to respond, Motor: moves all fours, strength is normal, Gait: is steady. 13:43 ECG was reviewed by the Attending Physician. cp Vital Signs: 13:06 BP 185 / 171; Pulse 124; Resp 18; Temp 101.1; Pulse Ox 96% on R/A; Weight 54.43 kg; ph 13:26 BP 162 / 102; Pulse 123; Resp 18; Temp 100.2(O); Pulse Ox 98% on R/A; db 13:39 BP 156 / 101; Pulse 117; Resp 18; Temp 99.0(O); Pulse Ox 99% on R/A; iw Jessica Coma Score: 13:35 Eye Response: spontaneous(4). Verbal Response: oriented(5). Motor Response: obeys db commands(6). Total: 15. MDM: 13:22 Patient medically screened. sd 14:33 Data reviewed: vital signs, nurses notes, EKG. Test interpretation: by ED physician or cp midlevel provider: ECG. 14:33 Counseling: I had a detailed discussion with the patient and/or guardian regarding: the cp historical points, exam findings, and any diagnostic results supporting the discharge/admit diagnosis, the presence of at least one elevated blood pressure reading (>120/80) during this emergency department visit, to return to the emergency department if symptoms worsen or persist or if there are any questions or concerns that arise at home. 14:33 Refusal of service: The patient/guardian displays adequate decision making capability cp and despite a detailed discussion of alternatives, benefits, risks, and consequences refuses: all lab tests, IV fluids, continued monitoring. 15:00 ED course: Patient left ED and law enforcement contacted to evaluate patient for cp possible JORDI. 04/23 13:26 Order name: EKG; Complete Time: 13:26 04/23 13:26 Order name: EKG - Nurse/Tech 04/23 13:26 Order name: IV Saline Lock 04/23 13:26 Order name: Labs collected and sent; Complete Time: 13:32 cp 04/23 13:26 Order name: Suicide Precautions; Complete Time: 13:32 04/23 13:26 Order name: Suicide Screening (Vian); Complete Time: 13:32 04/23 13:26 Order name: Urine Dipstick-Ancillary (obtain specimen) EC:43 Rate is 115 beats/min. Rhythm is regular. SD interval is normal. QRS interval is cp normal. QT interval is normal. T waves are Inverted in lead aVR. Interpreted by me. Reviewed by me. Administered Medications: 15:31 Not Given (Patient Refused): NS 0.9% 1000 ml IV at 1 bolus Per protocol; 1000 mL bolus db 15:31 Not Given (Patient Refused): Ativan (LORazepam) 1 mg IVP once db Disposition: 18:56 STAFF ATTESTATION: The patient's history, exam findings, diagnostics and a summary of sd2 any interventions or procedures was reviewed in detail with the ED JOSSE. I confirm the diagnosis as documented by the JOSSE and I agree with the care plan articulated in the disposition section with regards to our discussion of the patient's case. Asha Leahy MD. Disposition Summary: 04/23/22 15:32 Discharge Ordered Location: Home cp Problem: new cp Symptoms: have improved cp Condition: Stable cp Diagnosis - Adverse effect of other drugs, medicaments and biological substances cp Followup: cp - With: Emergency Department - When: As needed - Reason: Worsening of condition Discharge Instructions: - Discharge Summary Sheet cp - Intentional Drug Overdose cp - Preventing [id number] Drug Misuse cp Forms: - Medication Reconciliation Form cp - Thank You Letter cp - Antibiotic Education cp - Prescription Opioid Use cp Signatures: Dispatcher [employer] Gauri Garcia, RN RN ph Katie, Roshan, PA PA cp Asha Leahy MD MD sd2 Holly Angulo RN RN kb3 Leticia Ayon RN db
[2022-04-23 15:44] VITALS: BP 156/101; TEMP 99; O2SAT 99
--- NOTE | 2022-04-24 17:02 | EKG ---
Test Date: 2022-04-23 Test Time: 13:35:48 Assistive Technology Trainer: JULIAN MEASUREMENT RESULTS: Intervals: Rate: 115 [place]: 128 QRSD: 94 QT: 330 QTc: 456 [place]: P: 78 [place]: 128 QRS: 74 T: 40 INTERPRETIVE STATEMENTS: Sinus tachycardia Otherwise normal ECG Compared to ECG 12/15/2021 23:39:34 Sinus rhythm no longer present Incomplete right bundle-branch block no longer present Electronically Signed On 04-24-22 17:01:22 CRITICAL CARE PHYSICIAN ASSISTANT by Valentin Asher
== END 2022-04-23 15:35 | disposition home or self-care (01) ==
LOC: ER 12:53
DX: T50.995A Adverse effect of other drugs, medicaments and biological substances, initial encounter (principal); F20.9 Schizophrenia, unspecified; F17.210 Nicotine dependence, cigarettes, uncomplicated; Z88.8 Allergy status to other drugs, medicaments and biological substances
CPT/HCPCS: 93005; 99283

== ENCOUNTER 2022-05-31 19:04 | Emergency (ER) | payer OTHER ==
[2022-05-31] MEDS ORDERED: NA CHLORIDE 0.9% 1,000 ML ONE (19:29)
--- OUTSIDE RECORDS SUMMARY | 2022-05-31 19:32 | XMS REPORT | Continuity of Care Document ---
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 phosphate-s 2-14 (Same as: l odium 04:02: Phos-NaK) [place] phosphate 00 Each 1.5 250 mg-280 gm pkt has mg-160 mg 250mg oral powder phosphorou for s. Mix reconstitut w/2.5oz ion water and stir. Calcium 2017-05 No Notes: [facility] Gluconate 2-14 WASTE: F/P l 04:02: - Sink; E [place] - [employer] Bin Magnesium 2017-05 No Notes: Memori a Oxide 2-14 (Same as: l 04:02: Mag-Ox [place] 00 400) Magnesium oxide 491qq=[id number] g elemental magnesium Dose=____m g magnesium oxide (___mg elemental magnesium) Calcium 2017-05 No Notes: [facility] Carbonate 2-14 (Same As: l 500 MG 04:02: Tums) [place] Chewable 00 Calcium Tablet Carbonate 500 mg = 200 mg elemental calcium Dose = mg calcium carbonate ( mg elemental calcium) Saline 2017-05 No Notes: [facility] Flush 0.9% 2-14 Same as: l 04:02: BD [place] Posiflush Sterile Acetaminoph 2017-05 No Notes: Do M emoria en 2-14 not exceed l 04:02: 4 gm/day. [place] 00 (Same as: Tylenol) Nystatin 2017-05 No Notes: [facility] 100 UNT/MG 2-14 (Same l Topical 04:02: as:Mycosta Herm boaz Powder 00 tin, Nilstat) For external use only. Potassium 2017-05 No Notes: Mem[facility] a Chloride 2-14 (Same as: l 04:02: KCL) Infuse no faster than 10 mEq/hr if given peripheral ly. sodium 2017-05 No Notes: [facility] phosphate 2-14 Infuse l 04:02: over 4 [place] 00 hour. Do not infuse phosphorou s [...] 2-14 (Same as: l odium 04:02: Phos-NaK) [place] phosphate 00 Each 1.5 250 mg-280 gm pkt has mg-160 mg 250mg oral powder phosphorou for s. Mix reconstitut w/2.5oz ion water and stir. Calcium 2017-05 No Notes: [facility] Gluconate 2-14 WASTE: F/P l 04:02: - Sink; E - [facility] Bin Magnesium 2017-05 No Notes: [facility] a Oxide 2-14 (Same as: l 04:02: Mag-Ox [place] 400) Magnesium oxide 587fv=560p g elemental magnesium Dose=____m g magnesium oxide [...] Chloride 2-14 (Same as: l 04:02: KCL) [place] 00 Infuse no faster than 10 mEq/hr if given peripheral ly. sodium 2017-05 No Notes: [facility] phosphate 2-14 Infuse l 04:02: over 4 [place] 00 hour. Do not infuse phosphorou s [...] WASTE: F/P l 04:02: - Sink; E [place] 00 - [facility] Bin potassium 2017-05 No Notes: [facility] a phosphate-s 2-14 (Same as: l odium 04:02: Phos-NaK) [place] phosphate 00 Each 1.5 250 mg-280 gm pkt has mg-160 mg 250mg oral powder phosphorou for s. Mix reconstitut w/2.5oz ion water and stir. Calcium 2017-05 No Notes: [facility] Gluconate 2-14 WASTE: F/P l 04:02: - Sink; E [place] 00 - [facility] Bin Magnesium 2017-05 No Notes: [facility] a Oxide 2-14 (Same as: l 04:02: Mag-Ox [place] 00 400) Magnesium oxide 015gt=[id number] g elemental magnesium Dose=____m g magnesium oxide (___mg elemental magnesium) Calcium 2017-05 No Notes: [facility] Carbonate 2-14 (Same As: l 500 MG 04:02: Tums) [place] Chewable 00 Calcium Tablet Carbonate 500 mg = 200 mg elemental calcium Dose = mg calcium carbonate ( mg elemental calcium) Saline 2017-05 No Notes: [facility] Flush 0.9% 2-14 Same as: l 04:02: BD [place] 00 Posiflush Sterile Acetaminoph 2017-05 No Notes: Do M emoria en 2-14 not exceed l 04:02: 4 gm/day. [place] 00 (Same as: Tylenol) Nystatin 2017-05 No Notes: [facility] 100 UNT/MG 2-14 (Same l Topical 04:02: as:Mycosta Herm boaz Powder 00 tin, Nilstat) For external use only. Potassium 2017-05 No Notes: [facility] a Chloride 2-14 (Same as: l 04:02: KCL) [place] 00 Infuse no faster than 10 mEq/hr if given peripheral ly. sodium 2017-05 No Notes: [facility] phosphate 2-14 Infuse l 04:02: over 4 [place] 00 hour. Do not infuse phosphorou s [...] WASTE: F/P l 04:02: - Sink; E [place] 00 - [facility] Tr[facility] Bin potassium 2017-05 No Notes: [facility] a phosphate-s 2-14 (Same as: l odium 04:02: Phos-NaK) [place] phosphate 00 Each 1.5 250 mg-280 gm pkt has mg-160 mg 250mg oral powder phosphorou for s. Mix reconstitut w/2.5oz ion water and stir. Calcium 2017-05 No Notes: [facility] Gluconate 2-14 WASTE: F/P l 04:02: - Sink; E [place] 00 - [facility] Tr[facility] Bin Magnesium 2017-05 No Notes: [facility] a Oxide 2-14 (Same as: l 04:02: Mag-Ox [place] 00 400) Magnesium oxide [id number]=[id number] g elemental magnesium Dose=____m g magnesium oxide (___mg elemental magnesium) Calcium 2017-05 No Notes: [facility] Carbonate 2-14 (Same As: l 500 MG 04:02: Tums) [place] Chewable 00 Calcium Tablet Carbonate 500 mg = 200 mg elemental calcium Dose = mg calcium carbonate ( mg elemental calcium) Saline 2017-05 No Notes: [facility] Flush 0.9% 2-14 Same as: l 04:02: BD [place] 00 Posiflush Sterile Acetaminoph 2017-05 No Notes: Do M emoria en 2-14 not exceed l 04:02: 4 gm/day. [place] 00 (Same as: Tylenol) Nystatin 2017-05 No Notes: [facility] 100 UNT/MG 2-14 (Same l Topical 04:02: as:Mycosta Herm boaz Powder 00 tin, Nilstat) For external use only. Keppra 2017-05 No 1,000 mg, Memori a 2-14 Route: l 03:26: IVPB, [place] 00 ONCE, Dosing Weight 54.091, kg, Start date: 04/12/18 21:26:00 INCINERATOR OPERATOR, Stop date: 04/12/18 21:26:00 INCINERATOR OPERATOR Keppra 2017-05 No 1,000 mg, Memori a 2-14 Route: l 03:26: IVPB, [place] 00 ONCE, Dosing Weight 54.091, kg, Start date: 04/12/18 21:26:00 INCINERATOR OPERATOR, Stop date: 04/12/18 21:26:00 INCINERATOR OPERATOR Keppra 2018-1 No 1,000 mg, Mem[facility] a 2-14 Route: l 03:26: IVPB, [place] 00 ONCE, Dosing Weight 54.091, kg, Start date: 04/12/18 21:26:00 INCINERATOR OPERATOR, Stop date: 04/12/18 21:26:00 INCINERATOR OPERATOR Keppra 2018-1 No 1,000 mg, Mem[facility] a 2-14 Route: l 03:26: IVPB, [place] 00 ONCE, Dosing Weight 54.091, kg, Start date: 04/12/18 21:26:00 INCINERATOR OPERATOR, Stop date: 04/12/18 21:26:00 INCINERATOR OPERATOR Keppra 2018-1 No 1,000 mg, [facility] a 2-14 Route: l 03:26: IVPB, [place] 00 ONCE, Dosing Weight 54.091, kg, Start date: 04/12/18 21:26:00 INCINERATOR OPERATOR, Stop date: 04/12/18 21:26:00 INCINERATOR OPERATOR acetaminoph 2017-05 No Notes: Do M emoria en-codeine 2-14 not exceed l #3 02:03: 4gm/day of [place] 00 acetaminop hen. (Same as: Tylenol with [...] not exceed l #3 02:03: 4gm/day of [place] 00 acetaminop hen. (Same as: Tylenol with Codeine # 3) acetaminoph 2017-05 No Notes: Do M emoria en-codeine 2-14 not exceed l #3 02:03: 4gm/day of [place] 00 acetaminop hen. (Same as: Tylenol with Codeine # 3) Sodium 2018-1 No 1,000 mL, Mem[facility] a Chloride 2-14 Infuse l 0.9% 00:47: Over: 1 [place] (Bolus) IV 00 hr, Route: IV, ONCE, Priority: STAT, Dosing Weight 54.091 kg, Start date: 04/12/18 18:47:00 INCINERATOR OPERATOR, Stop date: 04/12/18 18:47:00 INCINERATOR OPERATOR Sodium 2018-1 No 1,000 mL, [facility] a Chloride 2-14 Infuse l 0.9% 00:47: Over: 1 [place] (Bolus) IV 00 hr, Route: IV, ONCE, Priority: STAT, Dosing Weight 54.091 kg, Start date: 04/12/18 18:47:00 INCINERATOR OPERATOR, Stop date: 04/12/18 18:47:00 INCINERATOR OPERATOR Sodium 2018-1 No 1,000 mL, [facility] a Chloride 2-14 Infuse l 0.9% 00:47: Over: 1 [place] (Bolus) IV 00 hr, Route: IV, ONCE, Priority: STAT, Dosing Weight 54.091 kg, Start date: 04/12/18 18:47:00 INCINERATOR OPERATOR, Stop date: 04/12/18 18:47:00 INCINERATOR OPERATOR Sodium 2018-1 No 1,000 mL, [facility] a Chloride 2-14 Infuse l 0.9% 00:47: Over: 1 [place] (Bolus) IV 00 hr, Route: IV, ONCE, Priority: STAT, Dosing Weight 54.091 kg, Start date: 04/12/18 18:47:00 INCINERATOR OPERATOR, Stop date: 04/12/18 18:47:00 INCINERATOR OPERATOR Sodium 2018-1 No 1,000 mL, [facility] a Chloride 2-14 Infuse l 0.9% 00:47: Over: 1 [place] (Bolus) IV 00 hr, Route: IV, ONCE, Priority: STAT, Dosing Weight 54.091 kg, Start date: 04/12/18 18:47:00 INCINERATOR OPERATOR, Stop date: 04/12/18 18:47:00 INCINERATOR OPERATOR Ibuprofen 2017-0 No 600 mg, Memor ia 1- Route: PO, l 05:32: Drug form: [place] 00 TAB, ONCE, Dosing Weight 54.545, kg, Priority: STAT, Start date: 04/30/16 23:32:00 INCINERATOR OPERATOR, Stop date: 04/30/16 23:32:00 INCINERATOR OPERATOR Ibuprofen 2017-0 No 600 mg, Mem[facility] ia 1- Route: PO, l 05:32: Drug form: [place] 00 TAB, ONCE, Dosing Weight 54.545, kg, Priority: STAT, Start date: 04/30/16 23:32:00 INCINERATOR OPERATOR, Stop date: 04/30/16 23:32:00 INCINERATOR OPERATOR Ibuprofen 2017-0 No 600 mg, Mem[facility] ia 1- Route: PO, l 05:32: Drug form: [place] 00 TAB, ONCE, Dosing Weight 54.545, kg, Priority: STAT, Start date: 04/30/16 23:32:00 INCINERATOR OPERATOR, Stop date: 04/30/16 23:32:00 INCINERATOR OPERATOR Ibuprofen 2017-0 No 600 mg, [facility] ia 1- Route: PO, l 05:32: Drug form: [place] 00 TAB, ONCE, Dosing Weight 54.545, kg, Priority: STAT, Start date: 04/30/16 23:32:00 INCINERATOR OPERATOR, Stop date: 04/30/16 23:32:00 INCINERATOR OPERATOR Ibuprofen 2017-0 No 600 mg, [facility] ia 1- Route: PO, l 05:32: Drug form: [place] 00 TAB, ONCE, Dosing Weight 54.545, kg, Priority: STAT, Start date: 04/30/16 23:32:00 INCINERATOR OPERATOR, Stop date: 04/30/16 23:32:00 INCINERATOR OPERATOR Sodium 2017-0 No 1,000 mL, [facility] a Chloride 1-01 1,000 l 0.154 04:38: ml/hr, [place] MEQ/ML 00 Infuse Injectable Over: 1 Solution hr, Route: IV, 1,000, Drug form: INJ, ONCE, Priority: STAT, Dosing Weight 54.545 kg, Start date: 04/30/16 22:38:00 INCINERATOR OPERATOR, Duration: 1 doses or times, Stop date: 04/30/16 22:38:00 INCINERATOR OPERATOR Sodium 2017-0 No 1,000 mL, [facility] a Chloride 1-01 1,000 l 0.154 04:38: ml/hr, [place] MEQ/ML 00 Infuse Injectable Over: 1 Solution hr, Route: IV, 1,000, Drug form: INJ, ONCE, Priority: STAT, Dosing Weight 54.545 kg, Start date: 04/30/16 22:38:00 INCINERATOR OPERATOR, Duration: 1 doses or times, Stop date: 04/30/16 22:38:00 INCINERATOR OPERATOR Sodium 2017-0 No 1,000 mL, [facility] a Chloride 1-01 1,000 l 0.154 04:38: ml/hr, [place] MEQ/ML 00 Infuse Injectable Over: 1 Solution hr, Route: IV, 1,000, Drug form: INJ, ONCE, Priority: STAT, Dosing Weight 54.545 kg, Start date: 04/30/16 22:38:00 INCINERATOR OPERATOR, Duration: 1 doses or times, Stop date: 04/30/16 22:38:00 INCINERATOR OPERATOR Sodium 2017-0 No 1,000 mL, [facility] a Chloride 1-01 1,000 l 0.154 04:38: ml/hr, [place] MEQ/ML 00 Infuse Injectable Over: 1 Solution hr, Route: IV, 1,000, Drug form: INJ, ONCE, Priority: STAT, Dosing Weight 54.545 kg, Start date: 04/30/16 22:38:00 INCINERATOR OPERATOR, Duration: 1 doses or times, Stop date: 04/30/16 22:38:00 INCINERATOR OPERATOR Sodium 2017-0 No 1,000 mL, [facility] a Chloride 1-01 1,000 l 0.154 04:38: ml/hr, [place] MEQ/ML 00 Infuse Injectable Over: 1 Solution hr, Route: IV, 1,000, Drug form: INJ, ONCE, Priority: STAT, Dosing Weight 54.545 kg, Start date: 04/30/16 22:38:00 INCINERATOR OPERATOR, Duration: 1 doses or times, Stop date: 04/30/16 22:38:00 INCINERATOR OPERATOR Sodium 2017-0 No 25 mL, [facility] Chloride 1-01 Route: IV, l 0.9% IV 02:29: Start date: 04/30/16 20:29:00 INCINERATOR OPERATOR, Duration: 30 day, Stop date: 05/30/16 20:28:00 INCINERATOR OPERATOR, PRN Line Flush BD Normal 2017-0 No Notes: Memori a Saline 1-01 (Same as: l Flush 02:29: BD [place] 00 Posiflush) Sodium 2017-0 No 25 mL, [facility] Chloride 1-01 Route: IV, l 0.9% IV 02:29: Start [place] date: 04/30/16 20:29:00 INCINERATOR OPERATOR, Duration: 30 day, Stop date: 05/30/16 20:28:00 INCINERATOR OPERATOR, PRN Line Flush BD Normal 2017-0 No Notes: Mem[facility] a Saline - (Same as: l Flush 02:29: BD [place] Posiflush) Sodium 2016-0 No 25 mL, [facility] Chloride 05-01 Route: IV, l 0.9% IV 02:29: Start [place] 00 date: 04/30/16 20:29:00 INCINERATOR OPERATOR, Duration: 30 day, Stop date: 05/30/16 20:28:00 INCINERATOR OPERATOR, PRN Line Flush BD Normal 2017-0 No Notes: Mem[facility] a Saline - (Same as: l Flush 02:29: BD [place] Posiflush) Sodium 2016-0 No 25 mL, [facility] Chloride 05-01 Route: IV, l 0.9% IV 02:29: Start [place] date: 04/30/16 20:29:00 INCINERATOR OPERATOR, Duration: 30 day, Stop date: 05/30/16 20:28:00 INCINERATOR OPERATOR, PRN Line Flush BD Normal 2017-0 No Notes: [facility] a Saline - (Same as: l Flush 02:29: BD [place] Posiflush) Sodium 2016-0 No 25 mL, [facility] Chloride 05-01 Route: IV, l 0.9% IV 02:29: Start [place] date: 04/30/16 20:29:00 INCINERATOR OPERATOR, Duration: 30 day, Stop date: 05/30/16 20:28:00 INCINERATOR OPERATOR, PRN Line Flush BD Normal 2017-0 No Notes: [facility] a Saline - (Same as: l Flush 02:29: BD [place] 00 Posiflush) Sodium 2016-0 No 1,000 mL, [facility] a Chloride 05-01 1,000 l 0.154 02:19: ml/hr, [place] MEQ/ML 00 Infuse Injectable Over: 1 Solution hr, Route: IV, 1,000, Drug form: INJ, ONCE, Priority: STAT, Dosing Weight 54.545 kg, Start date: 04/30/16 20:19:00 INCINERATOR OPERATOR, Duration: 1 doses or times, Stop date: 04/30/16 20:19:00 INCINERATOR OPERATOR Sodium 2017-0 No 1,000 mL, [facility] a Chloride 1-01 1,000 l 0.154 02:19: ml/hr, [place] MEQ/ML 00 Infuse Injectable Over: 1 Solution hr, Route: IV, 1,000, Drug form: INJ, ONCE, Priority: STAT, Dosing Weight 54.545 kg, Start date: 04/30/16 20:19:00 INCINERATOR OPERATOR, Duration: 1 doses or times, Stop date: 04/30/16 20:19:00 INCINERATOR OPERATOR Sodium 2017-0 No 1,000 mL, [facility] a Chloride 1-01 1,000 l 0.154 02:19: ml/hr, [place] MEQ/ML 00 Infuse Injectable Over: 1 Solution hr, Route: IV, 1,000, Drug form: INJ, ONCE, Priority: STAT, Dosing Weight 54.545 kg, Start date: 04/30/16 20:19:00 INCINERATOR OPERATOR, Duration: 1 doses or times, Stop date: 04/30/16 20:19:00 INCINERATOR OPERATOR Sodium 2017-0 No 1,000 mL, [facility] a Chloride 1-01 1,000 l 0.154 02:19: ml/hr, [place] MEQ/ML 00 Infuse Injectable Over: 1 Solution hr, Route: IV, 1,000, Drug form: INJ, ONCE, Priority: STAT, Dosing Weight 54.545 kg, Start date: 04/30/16 20:19:00 INCINERATOR OPERATOR, Duration: 1 doses or times, Stop date: 04/30/16 20:19:00 INCINERATOR OPERATOR Sodium 2017-0 No 1,000 mL, [facility] a Chloride 1-01 1,000 l 0.154 02:19: ml/hr, [place] MEQ/ML 00 Infuse Injectable Over: 1 Solution hr, Route: IV, 1,000, Drug form: INJ, ONCE, Priority: STAT, Dosing Weight 54.545 kg, Start date: 04/30/16 20:19:00 INCINERATOR OPERATOR, Duration: 1 doses or times, Stop date: 04/30/16 20:19:00 INCINERATOR OPERATOR tramadol 2015-05 Yes 50 mg = 1 [...] tramadol 2015-05 Yes 50 mg = 1 [place] pilo hydrochlori 2-31 tab, PO, l de [...] Route: IV, l 0.9% IV 11:21: Start [place] 00 date: 04/30/16 5:21:00 INCINERATOR OPERATOR, Duration: 30 day, Stop date: 05/30/16 5:20:00 INCINERATOR OPERATOR, PRN Line Flush BD Normal 2015-05 No Notes: [facility] a Saline (Same as: l Flush 11:21: BD [place] Posiflush) Sodium 2015-05 No 25 mL, [facility] Chloride 2-31 Route: IV, l 0.9% IV 11:21: Start [place] 00 date: 04/30/16 5:21:00 INCINERATOR OPERATOR, Duration: 30 day, Stop date: 05/30/16 5:20:00 INCINERATOR OPERATOR, PRN Line Flush BD Normal 2015-05 No Notes: [facility] a Saline 2-31 (Same as: l Flush 11:21: BD [place] 00 Posiflush) Sodium 2015-05 No 25 mL, [facility] Chloride 2-31 Route: IV, l 0.9% IV 11:21: Start [place] 00 date: 04/30/16 5:21:00 INCINERATOR OPERATOR, Duration: 30 day, Stop date: 05/30/16 5:20:00 INCINERATOR OPERATOR, PRN Line Flush BD Normal 2015-05 No Notes: [facility] a Saline 2-31 (Same as: l Flush 11:21: BD [place] 00 Posiflush) Sodium 2015-05 No 25 mL, [facility] Chloride 2-31 Route: IV, l 0.9% IV 11:21: Start [place] 00 date: 04/30/16 5:21:00 INCINERATOR OPERATOR, Duration: 30 day, Stop date: 05/30/16 5:20:00 INCINERATOR OPERATOR, PRN Line Flush BD Normal 2015-05 No Notes: [facility] a Saline 2-31 (Same as: l Flush 11:21: BD [place] 00 Posiflush) Sodium 2015-05 No 25 mL, [facility] Chloride 2-31 Route: IV, l 0.9% IV 11:21: Start date: 04/30/16 5:21:00 INCINERATOR OPERATOR, Duration: 30 day, Stop date: 05/30/16 5:20:00 INCINERATOR OPERATOR, PRN Line Flush BD Normal 2015-05 No Notes: [facility] a Saline 2-31 (Same as: l Flush 11:21: BD [place] 00 Posiflush) Motrin 2015-05 No 800 mg, 1 Memori a 2-31 tab, l 11:19: Route: PO, [place] 00 Drug form: TAB, ONCE, Dosing Weight 54.545, kg, Priority: STAT, Start date: 04/30/16 5:19:00 INCINERATOR OPERATOR, Stop date: 04/30/16 5:19:00 INCINERATOR OPERATOR Motrin 2015- No 800 mg, 1 Mem[facility] a 2-31 tab, l 11:19: Route: PO, [place] 00 Drug form: TAB, ONCE, Dosing Weight 54.545, kg, Priority: STAT, Start date: 04/30/16 5:19:00 INCINERATOR OPERATOR, Stop date: 04/30/16 5:19:00 INCINERATOR OPERATOR Motrin 2015- No 800 mg, 1 [facility] a 2-31 tab, l 11:19: Route: PO, [place] 00 Drug form: TAB, ONCE, Dosing Weight 54.545, kg, Priority: STAT, Start date: 04/30/16 5:19:00 INCINERATOR OPERATOR, Stop date: 04/30/16 5:19:00 INCINERATOR OPERATOR Motrin 2016- No 800 mg, 1 [facility] a 2-31 tab, l 11:19: Route: PO, [place] 00 Drug form: TAB, ONCE, Dosing Weight 54.545, kg, Priority: STAT, Start date: 04/30/16 5:19:00 INCINERATOR OPERATOR, Stop date: 04/30/16 5:19:00 INCINERATOR OPERATOR Motrin 2015- No 800 mg, 1 [facility] a 2-31 tab, l 11:19: Route: PO, [place] 00 Drug form: TAB, ONCE, Dosing Weight 54.545, kg, Priority: STAT, Start date: 04/30/16 5:19:00 INCINERATOR OPERATOR, Stop date: 04/30/16 5:19:00 INCINERATOR OPERATOR Sodium 2015-05 No 25 mL, [facility] Chloride Route: IV, l 0.9% IV 11:07: Start date: 04/30/16 5:07:00 INCINERATOR OPERATOR, Duration: 30 day, Stop date: 05/30/16 5:06:00 INCINERATOR OPERATOR, PRN Line Flush BD Normal 2015-05 No Notes: [facility] a Saline (Same as: l Flush 11:07: BD Posiflush) Sodium 2015-05 No 25 mL, [facility] Chloride 2 Route: IV, l 0.9% IV 11:07: Start date: 04/30/16 5:07:00 INCINERATOR OPERATOR, Duration: 30 day, Stop date: 05/30/16 5:06:00 INCINERATOR OPERATOR, PRN Line Flush BD Normal 2015-05 No Notes: [facility] a Saline 2-31 (Same as: l Flush 11:07: BD [place] Posiflush) Sodium 2015-05 No 25 mL, [facility] Chloride 2-31 Route: IV, l 0.9% IV 11:07: Start [place] date: 04/30/16 5:07:00 INCINERATOR OPERATOR, Duration: 30 day, Stop date: 05/30/16 5:06:00 INCINERATOR OPERATOR, PRN Line Flush BD Normal 2015-05 No Notes: [facility] a Saline 2-31 (Same as: l Flush 11:07: BD [place] Posiflush) Sodium 2015-05 No 25 mL, [facility] Chloride 2-31 Route: IV, l 0.9% IV 11:07: Start [place] 00 date: 04/30/16 5:07:00 INCINERATOR OPERATOR, Duration: 30 day, Stop date: 05/30/16 5:06:00 INCINERATOR OPERATOR, PRN Line Flush BD Normal 2015-05 No Notes: [facility] a Saline 2-31 (Same as: l Flush 11:07: BD [place] Posiflush) Sodium 2015-05 No 25 mL, [facility] Chloride 2-31 Route: IV, l 0.9% IV 11:07: Start [place] 00 date: 04/30/16 5:07:00 INCINERATOR OPERATOR, Duration: 30 day, Stop date: 05/30/16 5:06:00 INCINERATOR OPERATOR, PRN Line Flush BD Normal 2015-05 No Notes: [facility] a Saline 2-31 (Same as: l Flush 11:07: BD [place] Posiflush) Sodium 2015-05 No 1,000 mL, [facility] a Chloride 2-31 1,000 l 0.154 11:01: ml/hr, [place] MEQ/ML 00 Infuse Injectable Over: 1 Solution hr, Route: IV, 1,000, Drug form: INJ, ONCE, Priority: STAT, Dosing Weight 54.545 kg, Start date: 04/30/16 5:01:00 INCINERATOR OPERATOR, Duration: 1 doses or times, Stop date: 04/30/16 5:01:00 INCINERATOR OPERATOR Ketorolac 2015-05 No 4 days Memor ia 2-31 l 11:01: MEDICATION [place] WASTE Product Size: 30 mg Product Wasted: ___ mg Compazine 2015-05 No Notes: Memori a 2-31 (Same as: l 11:: Compazine) [place] Benadryl 2015-05 No Notes: [facility] 2-31 (Same as: l 11:: Benadryl) [place] 00 Sodium 2015-05 No 1,000 mL, [facility] a Chloride 2-31 1,000 l 0.154 11:01: ml/hr, [place] MEQ/ML 00 Infuse Injectable Over: 1 Solution hr, Route: IV, 1,000, Drug form: INJ, ONCE, Priority: STAT, Dosing Weight 54.545 kg, Start date: 04/30/16 5:01:00 INCINERATOR OPERATOR, Duration: 1 doses or times, Stop date: 04/30/16 5:01:00 INCINERATOR OPERATOR Ketorolac 2015-05 No 4 days [facility] ia 2-31 l 11:01: MEDICATION [place] 00 WASTE Product Size: 30 mg Product Wasted: ___ mg Compazine 2015-05 No Notes: Mem[facility] a 2-31 (Same as: l 11:: Compazine) [place] Benadryl 2015-05 No Notes: [facility] 2-31 (Same as: l :: Benadryl) [place] 00 Sodium 2015-05 No 1,000 mL, [facility] a Chloride 2-31 1,000 l 0.154 11:01: ml/hr, [place] MEQ/ML 00 Infuse Injectable Over: 1 Solution hr, Route: IV, 1,000, Drug form: INJ, ONCE, Priority: STAT, Dosing Weight 54.545 kg, Start date: 04/30/16 5:01:00 INCINERATOR OPERATOR, Duration: 1 doses or times, Stop date: 04/30/16 5:01:00 INCINERATOR OPERATOR Ketorolac 2015-05 No 4 days [facility] ia 2-31 l 11:01: MEDICATION [place] 00 WASTE Product Size: 30 mg Product Wasted: ___ mg Compazine 2015-05 No Notes: Mem[facility] a 2-31 (Same as: l 11:: Compazine) [place] Benadryl 2015-05 No Notes: [facility] 2-31 (Same as: l 11:: Benadryl) [place] Sodium 2015-05 No 1,000 mL, [facility] a Chloride 2-31 1,000 l 0.154 11:01: ml/hr, [place] MEQ/ML 00 Infuse Injectable Over: 1 Solution hr, Route: IV, 1,000, Drug form: INJ, ONCE, Priority: STAT, Dosing Weight 54.545 kg, Start date: 04/30/16 5:01:00 INCINERATOR OPERATOR, Duration: 1 doses or times, Stop date: 04/30/16 5:01:00 INCINERATOR OPERATOR Ketorolac 2015-05 No 4 days [facility] 2-31 l 11:01: MEDICATION [place] 00 WASTE Product Size: 30 mg Product Wasted: ___ mg Compazine 2015-05 No Notes: [facility] a 2-31 (Same as: l 11:01: Compazine) [place] 00 Benadryl 2015-05 No Notes: [facility] 2-31 (Same as: l 11:01: Benadryl) [place] Ketorolac 2015-05 No 4 days [facility] ia 2-31 l 11:01: MEDICATION [place] 00 WASTE Product Size: 30 mg Product Wasted: ___ mg Compazine 2015-05 No Notes: [facility] a 2-31 (Same as: l 11:01: Compazine) [place] 00 Benadryl 2015-05 No Notes: [facility] 2-31 (Same as: l 11:01: Benadryl) [place] 00 Sodium 2015-05 No 1,000 mL, Memori a Chloride 2-31 1,000 l 0.154 11:01: ml/hr, [place] MEQ/ML 00 Infuse Injectable Over: 1 Solution hr, Route: IV, 1,000, Drug form: INJ, ONCE, Priority: STAT, Dosing Weight 54.545 kg, Start date: 04/30/16 5:01:00 INCINERATOR OPERATOR, Duration: 1 doses or times, Stop date: 04/30/16 5:01:00 INCINERATOR OPERATOR Dexamethaso 2015-05 No Notes: Magdaleno pilo ne 2-08 Concentrat l 06:19: ion: [place] 00 4mg/ml Dexamethaso 2015-05 No Notes: Magdaleno pilo ne 08 Concentrat l 06:19: ion: [place] 00 4mg/ml Dexamethaso 2015-05 No Notes: Magdaleno pilo ne 2-08 Concentrat l 06:19: ion: [place] 00 4mg/ml Dexamethaso 2015-05 No Notes: Magdaleno pilo ne 2-08 Concentrat l 06:19: ion: [place] 00 4mg/ml Dexamethaso 2015-05 No Notes: Magdaleno pilo ne 2-08 Concentrat l 06:19: ion: [place] 00 4mg/ml Motrin 2015-05 No Notes: Memoria 2-08 (Same as: l 01:50: Motrin) [place] 00 "Do Not Crush" Take with food. sodium 2015-05 No 1,000 mL, Memori a chloride 2-08 Rate: l 0.9% 1000 01:50: 1,000 [place] ml INJ 00 ml/hr, 1,000 mL Infuse over: 1 hr, Route: IV, Dosing Weight 50 kg, Total Volume: 1,000, Start date: 04/06/16 19:50:00 INCINERATOR OPERATOR, Duration: 1 doses or times, Stop date: 04/06/16 20:49:00 INCINERATOR OPERATOR, Bolus Dose Motrin 2015-05 No Notes: Memoria 2-08 (Same as: l 01:50: Motrin) [place] 00 "Do Not Crush" Take with food. sodium 2015-05 No 1,000 mL, Memori a chloride 2-08 Rate: l 0.9% 1000 01:50: 1,000 [place] ml INJ 00 ml/hr, 1,000 mL Infuse over: 1 hr, Route: IV, Dosing Weight 50 kg, Total Volume: 1,000, Start date: 04/06/16 19:50:00 INCINERATOR OPERATOR, Duration: 1 doses or times, Stop date: 04/06/16 20:49:00 INCINERATOR OPERATOR, Bolus Dose Motrin 2015-05 No Notes: [facility] 2-08 (Same as: l 01:50: Motrin) [place] 00 "Do Not Crush" Take with food. sodium 2015-05 No 1,000 mL, Memori a chloride 2-08 Rate: l 0.9% 1000 01:50: 1,000 Bryson ml INJ 00 ml/hr, 1,000 mL Infuse over: 1 hr, Route: IV, Dosing Weight 50 kg, Total Volume: 1,000, Start date: 04/06/16 19:50:00 INCINERATOR OPERATOR, Duration: 1 doses or times, Stop date: 04/06/16 20:49:00 INCINERATOR OPERATOR, Bolus Dose Motrin 2015-05 No Notes: Memoria 2-08 (Same as: l 01:50: Motrin) [place] 00 "Do Not Crush" Take with food. sodium 2015-05 No 1,000 mL, Memori a chloride 2-08 Rate: l 0.9% 1000 01:50: 1,000 Bryson ml INJ 00 ml/hr, 1,000 mL Infuse over: 1 hr, Route: IV, Dosing Weight 50 kg, Total Volume: 1,000, Start date: 04/06/16 19:50:00 INCINERATOR OPERATOR, Duration: 1 doses or times, Stop date: 04/06/16 20:49:00 INCINERATOR OPERATOR, Bolus Dose Motrin 2015-05 No Notes: Memoria 2-08 (Same as: l 01:50: Motrin) [place] 00 "Do Not Crush" Take with food. 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 Bry[place] 00 (Same as: Tylenol) Acetaminoph No Notes: Do M emoria en 15 not exceed l 06:17: 4 gm/day. [place] 00 (Same as: Tylenol) Acetaminoph No Notes: Do M emoria en 01-13 not exceed l 06:17: 4 gm/day. [place] 00 (Same as: Tylenol) Acetaminoph No Notes: Do M emoria en 15 not exceed l 06:17: 4 gm/day. [place] 00 (Same as: Tylenol) Acetaminoph No Notes: Do M emoria en 01-13 not exceed l 06:17: 4 gm/day. [place] 00 (Same as: Tylenol) Epinephrine 2015-0 No 1 ml, Memor ia 0.01 MG/ML 01-13 Route: l / Lidocaine 03:09: SUB-Q, Herm boaz Hydrochlori 00 Drug Form: de 10 MG/ML SOLN, Injectable Dosing Solution Weight 50, kg, ONCE, STAT, Start date: 01/13/16 22:09:00 CDT, Stop date: 01/13/16 22:09:00 CDT Epinephrine 2015-0 No 1 ml, Memor ia 0.01 MG/ML 01-13 Route: l / Lidocaine 03:09: SUB-Q, Herm boaz Hydrochlori Drug Form: de 10 MG/ML SOLN, Injectable Dosing Solution Weight 50, kg, ONCE, STAT, Start date: 01/13/16 22:09:00 CDT, Stop date: 01/13/16 22:09:00 CDT Epinephrine 2015-0 No 1 ml, Memor ia 0.01 MG/ML 01-13 Route: l / Lidocaine 03:09: SUB-Q, Herm boaz Hydrochlori Drug Form: de 10 MG/ML SOLN, Injectable Dosing Solution Weight 50, kg, ONCE, STAT, Start date: 01/13/16 22:09:00 CDT, Stop date: 01/13/16 22:09:00 CDT Epinephrine 2015-0 No 1 ml, Memor ia 0.01 MG/ML 01-13 Route: l / Lidocaine 03:09: SUB-Q, Herm boaz Hydrochlori Drug Form: de 10 MG/ML SOLN, Injectable Dosing Solution Weight 50, kg, ONCE, STAT, Start date: 01/13/16 22:09:00 CDT, Stop date: 01/13/16 22:09:00 CDT Epinephrine 2015-0 No 1 ml, Memor ia 0.01 MG/ML 01-13 Route: l / Lidocaine 03:09: SUB-Q, Herm boaz Hydrochlori 00 Drug Form: de 10 MG/ML SOLN, Injectable Dosing Solution Weight 50, kg, ONCE, STAT, Start date: 01/13/16 22:09:00 CDT, Stop date: 01/13/16 22:09:00 CDT benztropine Yes Psychosis 1mg Take 2 Gonzales (COGENTIN) 5-01 tablets by [facility] 0.5 mg 00:00: mouth 2 tablet 00 times daily as needed for Other (EPS). gabapentin 2013- Yes Amphetamine 100mg Q.5D Take 1 Gonzales (NEURONTIN) 5-01 dependence capsule [facility] 100 mg 00:00: mouth 2 capsule 00 times daily. gabapentin Yes Amphetamine 300mg Take 1 Gonzales (NEURONTIN) 5-01 dependence capsule by [facility] 300 mg 00:00: mouth at capsule 00 bedtime nightly. paliperidon 2013- Yes Psychosis 9mg Take 1 Gonzales e (INVEGA) 5-01 tablet by [facility] 9 mg 00:00: mouth extended 00 every release morning. tablet traZODone Yes Psychosis 100mg Take 1 Gonzales (DES[facility]REL) [facility]: mouth tablet 00 nightly at bedtime as needed for Sleep. benztropine Yes Psychosis 1mg Take 2 Gonzales (COGENTIN) 5-01 tablets by [facility] 0.5 mg 00:00: mouth 2 tablet 00 times daily as needed for Other (EPS). gabapentin Yes Amphetamine 100mg Q.5D Take 1 Gonzales (NEURONTIN) 5-01 dependence capsule by [facility] 100 mg 00:00: mouth 2 capsule 00 times daily. gabapentin Yes Amphetamine 300mg Take 1 Gonzales (NEURONTIN) 5-01 dependence capsule by [facility] 300 mg 00:00: mouth at capsule 00 bedtime nightly. paliperidon 2013- Yes Psychosis 9mg Take 1 Gonzales e (INVEGA) 5-01 tablet by [facility] 9 mg 00:00: mouth extended 00 every release morning. tablet traZODone Yes Psychosis 100mg Take 1 Gonzales (DESYREL) 5-01 tablet by [facility] 100 mg 00:00: mouth tablet 00 nightly at bedtime as needed for Sleep. benztropine 2013- Yes Psychosis 1mg Take 2 Gonzales (COGENTIN) 5-01 tablets by [facility] 0.5 mg 00:00: mouth 2 tablet 00 [...] Psychosis 9mg Take 1 Gonzales e (INVEGA) 08-29 tablet by [facility] 9 mg 00:00: mouth extended 00 every release morning. tablet traZODone Yes Psychosis 100mg Take 1 Gonzales (DESYREL) 08-29 tablet by [facility] h 100 mg 00:00: mouth tablet 00 nightly at bedtime as needed for Sleep. benztropine 2021- No Psychosis 1mg Take 2 Gonzales (COGENTIN) 08-29 tablets by [facility] 0.5 mg 00:00: 00:00 mouth 2 tablet 00 :00 times daily as needed for Other (EPS). gabapentin 2021- No Amphetamine 100mg Q.5D Take 1 Gonzales (NEURONTIN) 08-29 dependence capsule by [facility] 100 mg 00:00: 00:00 mouth 2 capsule 00 :00 times daily. gabapentin 2021- No Amphetamine 300mg Take 1 Gonzales (NEURONTIN) 08-29 dependence capsule by [facility] 300 mg 00:00: 00:00 mouth at capsule 00 :00 bedtime nightly. paliperidon 2021- No Psychosis 9mg Take 1 Gonzales e (INVEGA) 08-29 tablet by [facility] 9 mg 00:00: 00:00 mouth extended 00 :00 every release morning. tablet traZODone 2021- No Psychosis 100mg Take 1 Gonzales (DESYREL) 08-29 tablet by [facility] 100 mg 00:00: 00:00 mouth tablet 00 :00 nightly at bedtime as needed for Sleep. benztropine 2021- No Psychosis 1mg Take 2 Gonzales (COGENTIN) 08-29 tablets by [facility] 0.5 mg 00:00: 00:00 mouth 2 tablet 00 :00 times daily as needed for Other (EPS). gabapentin 2021- No Amphetamine 100mg Q.5D Take 1 Gonzales (NEURONTIN) 08-29 dependence capsule by [facility] 100 mg 00:00: 00:00 mouth 2 capsule 00 :00 times daily. gabapentin 2021- No Amphetamine 300mg Take 1 Gonzales (NEURONTIN) 08-29 dependence capsule by [facility] 300 mg 00:00: 00:00 mouth at capsule 00 :00 bedtime nightly. paliperidon 2021- No Psychosis 9mg Take 1 Gonzales e (INVEGA) 08-29 tablet by [facility] 9 mg 00:00: 00:00 mouth extended 00 :00 every release morning. tablet traZODone 2021- No Psychosis 100mg Take 1 Gonzales (DESYREL) 08-29 tablet by [facility] 100 mg 00:00: 00:00 mouth tablet 00 :00 nightly at bedtime as needed for Sleep. Keflex 750 Yes Dejon 750 mg, 1 Me moria mg oral 9 Chibueze cap, PO, l capsule 01:30: Osuagwu Q12H, 10 Her hung 08 cap, Substituti on Allowed Keflex 750 Yes Dejon 750 mg, 1 Me moria mg oral 9- Chibueze cap, PO, l capsule 01:30: Osuagwu Q12H, 10 Her hung 08 cap, Substituti on Allowed Keflex 750 Yes Dejon 750 mg, 1 Me moria mg oral 9- Chibueze cap, PO, l capsule 01:30: Osuagwu Q12H, 10 Her hung 08 cap, Substituti on Allowed Keflex 750 Yes Dejon 750 mg, 1 Me moria mg oral 9-02 Chibueze cap, PO, l capsule 01:30: Osuagwu Q12H, 10 Her hung 08 cap, Substituti on Allowed Keflex 750 Yes Dejon 750 mg, 1 Me moria mg oral 9- Chibueze cap, PO, l capsule 01:30: Osuagwu [...] tab, Substituti on Allowed, TAB diazepam 5 2012- Yes Leona H 5 mg, 1 Me moria mg oral 12-30 Khraish tab, PO, l tablet 17:36: Daily, 10 Abdiaziz n 10 tab, Substituti on Allowed, TAB diazepam 5 2012- Yes Leona H 5 mg, 1 Me moria mg oral 12-30 Khraish tab, PO, l tablet 17:36: Daily, 10 Abdiaziz n 10 tab, Substituti on Allowed, TAB diazepam 5 Yes Leona H 5 mg, 1 Me moria mg oral 12-30 Khraish tab, PO, l tablet 17:36: Daily, 10 Abdiaziz n 10 tab, Substituti on Allowed, TAB tramadol 50 2012- Yes Leona H 50 mg, 1 Memoria [...] pain, Substituti on Allowed, TAB tramadol 50 2012- Yes Leona H 50 mg, 1 Memoria mg oral 12-30 Khraish tab, PO, l tablet 17:36: Q4H, PRN, Abdiaziz n 02 20 tab, as needed for pain, Substituti on Allowed, TAB tramadol 50 2012- Yes Leona H 50 mg, 1 Memoria [...] needed for itching, Substituti on Allowed, TAB [place] Yes Leona H 1 tab, PO, Magdaleno pilo 10/325 oral 12-30 Khraish Q6H, 20 l tablet 17:35: Bryson grigsby Substituti on Allowed, Maintenanc e, TAB [place] Yes Leona H 1 tab, PO, Magdaleno pilo 10/325 oral 12-30 Khraish Q6H, 20 l tablet 17:35: Bryson grigsby Substituti on Allowed, Maintenanc e, TAB [place] Yes Leona H 1 tab, PO, Magdaleno pilo 10/325 oral 12-30 Khraish Q6H, 20 l tablet 17:35: Bryson grigsby Substituti on Allowed, Maintenanc e, TAB [place] Yes Leona H 1 tab, PO, Magdaleno pilo 10/325 oral 12-30 Khraish Q6H, 20 l tablet 17:35: Bryson grigsby Substituti on Allowed, Maintenanc e, TAB [place] Yes Leona H 1 tab, PO, Magdaleno [...] day, Stop date: 01/29/13 8:43:00 tramadol 50 No Leona H 50 mg, [...] day, Stop date: 01/29/13 8:43:00 tramadol 50 No Leona H 50 mg, [...] H 50 mg, 1 Memoria mg oral - Khraish tab, l tablet 13:44: Route: PO, [...] 12-30 Aragon Route: l 06:00: IVPB, Drug [place] form: PDR/INJ, ABXQ8H, Dosing Weight 54.545, kg, Start date: 12/30/12 1:00:00, Duration: 2 day, Stop date: 12/31/12 17:00:00 cefazolin 2012-0 No Lily 1 gm, Memor ia 12-30 Aragon Route: l 06:00: IVPB, Drug [place] form: PDR/INJ, ABXQ8H, Dosing Weight 54.545, kg, Start date: 12/30/12 1:00:00, Duration: 2 day, Stop date: 12/31/12 17:00:00 cefazolin 2012-0 No Lily 1 gm, Memor ia 12-30 Aragon Route: l 06:00: IVPB, Drug [place] form: PDR/INJ, ABXQ8H, Dosing Weight 54.545, kg, Start date: 12/30/12 1:00:00, Duration: 2 day, Stop date: 12/31/12 17:00:00 cefazolin 2012-0 No Lily 1 gm, Memor ia 12-30 Aragon Route: l 06:00: IVPB, Drug [place] form: PDR/INJ, ABXQ8H, Dosing Weight 54.545, kg, Start date: 12/30/12 1:00:00, Duration: 2 day, Stop date: 12/31/12 17:00:00 cefazolin 2012-0 No Lily 1 gm, Memor ia 12-30 Aragon Route: l 06:00: IVPB, Drug [place] 00 form: PDR/INJ, ABXQ8H, Dosing Weight 54.545, kg, Start date: 12/30/12 1:00:00, Duration: 2 day, Stop date: 12/31/12 17:00:00 Zofran 2012-0 No Lily 4 mg, 1 Memori a 12-30 Aragon tab, l 05:18: Route: PO, [place] Drug form: TAB, Q8H, Dosing Weight 54.545, [...] 12-30 Aragon tab, l 05:18: Route: PO, Drug form: TAB, Q8H, Dosing Weight 54.545, kg, PRN Nausea, Start date: 12/30/12 0:18:00, Duration: 30 day, Stop date: 01/29/13 0:17:00 Zofran 2012-0 No Lily 4 mg, 1 Memori a 12-30 Aragon tab, l 05:18: Route: PO, Drug form: TAB, Q8H, Dosing Weight 54.545, [...] tab, l tablet 03:16: Osuagwu Route: PO, [facility] Drug form: TAB, ONCE, Dosing Weight 54.545, kg, Start date: 12/29/12 22:16:00, Stop date: 12/29/12 22:16:00 Ultram 50 2012-0 No Dejon 100 mg, 2 Mem oria mg oral - Chibueze tab, l tablet 03:16: Osuagwu Route: PO, [facility] Drug form: TAB, ONCE, Dosing Weight 54.545, kg, Start date: 12/29/12 22:16:00, Stop date: 12/29/12 22:16:00 Ultram 50 2012-0 No Dejon 100 mg, 2 Mem oria mg oral - Chibueze tab, l tablet 03:16: Osuagwu Route: PO, [facility] Drug form: TAB, ONCE, Dosing Weight 54.545, kg, Start date: 12/29/12 22:16:00, Stop date: 12/29/12 22:16:00 Ultram 50 2012-0 No Dejon 100 mg, 2 Mem oria mg oral - Chibueze tab, l tablet 03:16: Osuagwu Route: PO, [facility] Drug form: TAB, ONCE, Dosing Weight 54.545, kg, Start date: 12/29/12 22:16:00, Stop date: 12/29/12 22:16:00 Valium 2012-0 No Leona H 5 mg, 1 Memori a - Khraish tab, l 22:00: Route: PO, [place] 00 Drug form: TAB, BID, Dosing Weight 54.545, kg, Start date: 12/29/12 17:00:00, Duration: 30 day, Stop date: 01/28/13 9:00:00 Valium 2013-0 No Leona H 5 mg, 1 Memori a 8-31 Khraish tab, l 22:00: Route: PO, [place] 00 Drug form: TAB, BID, Dosing Weight 54.545, kg, Start date: 12/29/12 17:00:00, Duration: 30 day, Stop date: 01/28/13 9:00:00 Valium 2012-0 No Leona H 5 mg, 1 Memori a 12-29 Khraish tab, l 22:00: Route: PO, [place] 00 Drug form: TAB, BID, Dosing Weight 54.545, kg, Start date: 12/29/12 17:00:00, Duration: 30 day, Stop date: 01/28/13 9:00:00 Valium 2012-0 No Leona H 5 mg, 1 Memori a 12-29 Khraish tab, l 22:00: Route: PO, [place] 00 Drug form: TAB, BID, Dosing Weight 54.545, kg, Start date: 12/29/12 17:00:00, Duration: 30 day, Stop date: 01/28/13 9:00:00 Valium 2012-0 No Leona H 5 mg, 1 Memori a 12-29 Khraish tab, l 22:00: Route: PO, [place] 00 Drug form: TAB, BID, Dosing Weight 54.545, kg, Start date: 12/29/12 17:00:00, Duration: 30 day, Stop date: 01/28/13 9:00:00 BD 2012-0 No Spencer 5 mL, Memoria Posiflush 12-29 Philip Fraser Route: l SF 14:00: IVP, Drug Form: INJ, Q12H, Start date: 12/29/12 9:00:00, Duration: 30 day, Stop date: 01/27/13 21:00:00 nicotine 2012-0 No Татьяна Yen 7 mg, 1 Mem oria 12-29 Thi Alanis patch, l 14:00: Route: [place] 00 TOP, Drug form: ERFILM, Daily, Dosing Weight 54.545, kg, Start date: 12/29/12 9:00:00, Duration: 30 day, Stop date: 01/27/13 9:00:00 multivitami 2012-0 No Татьяна Yen 1 tab, M emoria n 12-29 Thi Alanis Route: PO, l 14:00: Dosing Weight 54.545, kg, Daily, Start date: 12/29/12 9:00:00, Duration: 5 day, Stop date: 01/02/13 9:00:00 folic acid 0 No Татьяна Yen 1 mg, Mem oria [...] Spencer 5 mL, Memoria Posiflush 12-29 Philip Fraser Route: l SF 14:00: IVP, Drug Form: INJ, Q12H, Start date: 12/29/12 9:00:00, Duration: 30 day, Stop date: 01/27/13 21:00:00 nicotine 2012-0 No Татьяна Yen 7 mg, 1 Mem oria 12-29 Thi Alanis patch, l 14:00: Route: [place] 00 TOP, Drug form: ERFILM, Daily, Dosing Weight 54.545, kg, Start date: 12/29/12 9:00:00, Duration: 30 day, Stop date: 01/27/13 9:00:00 multivitami 2012- No Татьяна Yen 1 tab, M emoria n 12-29 Thi Alanis Route: PO, l 14:00: Dosing Weight 54.545, kg, Daily, Start date: 12/29/12 9:00:00, Duration: 5 day, Stop date: 01/02/13 9:00:00 folic acid 0 No Татьяна Yen 1 mg, Mem oria [...] BD No Spencer 5 mL, Memoria Posiflush 31 Philip Fraser Route: l SF 14:00: IVP, Drug Form: INJ, Q12H, Start date: 12/29/12 9:00:00, Duration: 30 day, Stop date: 01/27/13 21:00:00 nicotine 2012- No Татьяна Yen 7 mg, 1 Mem oria 31 Thi Alanis patch, l 14:00: Route: [place] TOP, Drug form: ERFILM, Daily, Dosing Weight [...] BD No Spencer 5 mL, Memoria Posiflush -31 Philip Fraser Route: l SF 14:00: IVP, Drug Form: [...] Spencer 5 mL, Memoria Posiflush 12-29 Philip Fraser Route: l SF 14:00: IVP, Drug Form: INJ, Q12H, Start date: 12/29/12 9:00:00, Duration: 30 day, Stop date: 01/27/13 21:00:00 nicotine 2012-0 No Татьяна Yen 7 mg, 1 Mem oria 8-31 Thi Alanis patch, l 14:00: Route: [place] 00 TOP, Drug form: ERFILM, Daily, Dosing [...] l 13:07: [place] IVP, Drug form: INJ, PRN, Dosing Weight 54.545, kg, [...] Edward 0.25 mL, l 13:07: Sch[place]ett Route: [place] 00 IVP, Drug form: INJ, Q5Min, Dosing [...] Edward 0.1 mL, l 13:07: [place]ett Route: [place] 00 IVP, Drug form: INJ, Q2MIN, Dosing [...] & Vomiting, Start date: 12/29/12 8:07:00 naloxone 2013-0 No Gato 0.04 mg, Magdaleno pilo 12-29 Edward 0.1 mL, l 13:07: [place] Route: Bryson 00 IVP, Drug form: INJ, Q2MIN, Dosing Weight 54.545, kg, PRN Narcotic Reversal, Start date: 12/29/12 8:07:00, Duration: 8 doses or times, Stop date: Limited # of times labetalol 2012-0 No Gato 5 mg, 1 Magdaleno pilo 12-29 Edward mL, Route: l 13:07: [place] IVP, Drug Herm boaz 00 form: INJ, Q5Min, Dosing Weight 54.545, kg, PRN Elevated BP, Start date: 12/29/12 8:07:00, Duration: 5 doses or times, Stop date: Limited # of times hydromorpho 2012-0 No Gato 0.5 mg, Me moria ne 12-29 Edward 0.25 mL, l 13:07: [place] Route: [place] 00 IVP, Drug form: INJ, Q5Min, Dosing Weight 54.545, kg, PRN Pain Score 7-10, Start date: 12/29/12 8:07:00, Duration: 5 doses or times, Stop date: Limited # of times flumazenil 2012-0 No Gato 0.2 mg, 2 M emoria [...] Edward 0.1 mL, l 13:07: [place] Route: [place] 00 IVP, Drug form: INJ, Q2MIN, Dosing Weight 54.545, kg, PRN Narcotic Reversal, Start date: 12/29/12 8:07:00, Duration: 8 doses or times, Stop date: Limited # of times potassium 2012-0 No Татьяна Yen 40 mEq, 2 Memoria chloride 8-31 Thi Alanis tab, l 13:00: Route: PO, [place] 00 Drug form: ERTAB, ONCE, Dosing Weight [...] Татьяна Yen 40 mEq, 2 Memoria chloride - Thi Alanis tab, l 13:00: Route: PO, [place] 00 Drug form: ERTAB, ONCE, Dosing Weight 54.545, kg, Priority: Routine, Start date: 12/29/12 8:00:00, Stop date: 12/29/12 8:00:00 potassium 2012-0 No Татьяна Yen 40 mEq, 2 Memoria chloride -31 Thi Alanis tab, l 13:00: Route: PO, [place] 00 Drug form: ERTAB, ONCE, Dosing Weight 54.545, kg, Priority: Routine, Start date: 12/29/12 8:00:00, Stop date: 12/29/12 8:00:00 [place] 2012-0 No Татьяна Yen 1 tab, Memoria 10/325 oral 8- Thi Alanis Route: PO, l tablet 11:00: Drug Form: Karley nn 00 TAB, Dosing Weight 54.545, kg, Q6H, Start date: 12/29/12 6:00:00, Duration: 30 day, Stop date: 01/28/13 0:00:00 [place] 2012-0 No Татьяна Yen 1 tab, Memoria 10/325 oral 8-31 Thi Alanis Route: PO, l tablet 11:00: Drug Form: Karley nn 00 TAB, Dosing Weight 54.545, kg, Q6H, Start date: 12/29/12 6:00:00, Duration: 30 day, Stop date: 01/28/13 0:00:00 [place] 0 No Татьяна Yen 1 tab, Memoria 10/325 oral 8-31 Thi Alanis Route: PO, l tablet 11:00: Drug Form: Karley nn 00 TAB, Dosing Weight 54.545, kg, Q6H, Start date: 12/29/12 6:00:00, Duration: 30 day, Stop date: 01/28/13 0:00:00 [place] 0 No Татьяна Yen 1 tab, Memoria 10/325 oral 8-31 Thi Alanis Route: PO, l tablet 11:00: Drug Form: Karley nn 00 TAB, Dosing Weight 54.545, kg, Q6H, Start date: 12/29/12 6:00:00, Duration: 30 day, Stop date: 01/28/13 0:00:00 [place] 2012-0 No Татьяна Yen 1 tab, Memoria 10/325 oral 8-31 Thi Alanis Route: PO, l tablet 11:00: Drug Form: Karley nn 00 TAB, Dosing Weight 54.545, kg, Q6H, Start date: 12/29/12 6:00:00, Duration: 30 day, Stop date: 01/28/13 0:00:00 LORAzepam 2012-0 No Татьяна Yen 0.5 mg, Me moria 8-31 Thi Alanis 0.25 mL, l 10:22: Route: [...] Thi Alanis 0.25 mL, l 10:22: Route: IVP, Drug form: INJ, Q2H, Dosing Weight 54.545, kg, PRN Agitation, Start date: 12/29/12 5:22:00, Duration: 30 day, Stop date: 01/28/13 5:21:00 LORAzepam 2012- No Татьяна Yen 0.5 mg, Me moria 12-29 Thi Alanis 0.25 mL, l 10:22: Route: IVP, Drug form: INJ, Q2H, Dosing Weight 54.545, kg, PRN Agitation, Start date: 12/29/12 5:22:00, Duration: 30 day, Stop date: 01/28/13 5:21:00 LORAzepam 2012-0 No Татьяна Yen 0.5 mg, Me moria 12-29 Thi Alanis 0.25 mL, l 10:22: Route: IVP, Drug form: INJ, Q2H, Dosing Weight [...] Khraish mL, Route: l 09:34: IV, Drug [place] 00 form: INJ, Q4H, Dosing Weight 54.545, [...] Yen 1,000 mL, Mem oria saline 0.9% -31 Thi Alanis Rate: 75 l IV 1,000 [...] Stop date: 01/28/13 4:33:00 normal 2012-0 No Ттаьяна Yen 1,000 mL, Mem oria saline 0.9% [...] Thi Alanis Route: l 09:32: IVP, Drug [place] 00 Form: INJ, Dosing Weight 54.545, kg, PRN, PRN Line Flush, Start date: 12/29/12 4:32:00, Duration: 30 day, Stop date: 01/28/13 4:31:00 Saline 2012-0 No Татьяна Yen 5 mL, Memoria Flush 0.9% 8-31 Thi Alanis Route: l 09:32: IVP, Drug [place] 00 Form: INJ, Dosing Weight 54.545, kg, PRN, PRN Line Flush, Start date: 12/29/12 4:32:00, Duration: 30 day, Stop date: 01/28/13 4:31:00 Saline 2012-0 No Татьяна Yen 5 mL, Memoria Flush 0.9% -31 Thi Alanis Route: l 09:32: IVP, Drug [place] 00 Form: INJ, Dosing Weight 54.545, kg, PRN, PRN Line Flush, Start date: 12/29/12 4:32:00, Duration: 30 day, Stop date: 01/28/13 4:31:00 Saline 2012-0 No Татьяна Yen 5 mL, Memoria Flush 0.9% - Thi Alanis Route: l 09:32: IVP, Drug [place] 00 Form: INJ, Dosing Weight 54.545, kg, PRN, PRN Line Flush, Start date: 12/29/12 4:32:00, Duration: 30 day, Stop date: 01/28/13 4:31:00 Saline 2012-0 No Татьяна Yen 5 mL, Memoria Flush 0.9% - Thi Alanis Route: l 09:32: IVP, Drug [place] 00 Form: INJ, Dosing Weight 54.545, kg, PRN, PRN Line Flush, Start date: 12/29/12 4:32:00, Duration: 30 day, Stop date: 01/28/13 4:31:00 potassium 2012-0 No Татьяна Yen 40 mEq, 2 Memoria chloride - Thi Alanis tab, l 09:31: Route: PO, [place] 00 Drug form: ERTAB, ONCE, Dosing Weight 54.545, kg, Priority: STAT, Start date: 12/29/12 4:31:00, Stop date: 12/29/12 4:31:00 potassium 2012-0 No Татьяна Yen 40 mEq, 2 Memoria chloride -31 Thi Alanis tab, l 09:31: Route: PO, [place] 00 Drug form: ERTAB, ONCE, Dosing Weight 54.545, kg, Priority: STAT, Start date: 12/29/12 4:31:00, Stop date: 12/29/12 4:31:00 potassium 2012-0 No Татьяна Yen 40 mEq, 2 Memoria chloride 8-31 Thi Alanis tab, l 09:31: Route: PO, [place] 00 Drug form: ERTAB, ONCE, Dosing Weight [...] Thi Alanis tab, l 09:31: Route: PO, [place] 00 Drug form: ERTAB, ONCE, Dosing Weight 54.545, kg, Priority: STAT, Start date: 12/29/12 4:31:00, Stop date: 12/29/12 4:31:00 Ativan 2012-0 No Spencer 2 mg, 1 Memori a 8-31 Philip Fraser mL, Route: l 06:34: IVP, Drug [place] 00 form: INJ, ONCE, Dosing Weight 54.545, kg, Priority: STAT, Start date: 12/29/12 1:34:00, Stop date: 12/29/12 1:34:00 Ativan 2012-0 No Spencer 2 mg, 1 Memori a 8-31 Phiilp Fraser mL, Route: l 06:34: IVP, Drug [place] 00 form: INJ, ONCE, Dosing Weight 54.545, kg, Priority: STAT, Start date: 12/29/12 1:34:00, Stop date: 12/29/12 1:34:00 Ativan 2012-0 No Spencer 2 mg, 1 Memori a 8-31 Philip Fraser mL, Route: l 06:34: IVP, Drug [place] 00 form: INJ, ONCE, Dosing Weight 54.545, kg, Priority: STAT, Start date: 12/29/12 1:34:00, Stop date: 12/29/12 1:34:00 Ativan 2012-0 No Spencer 2 mg, 1 Memori a 8-31 Philip Fraser mL, Route: l 06:34: IVP, Drug [place] 00 form: INJ, ONCE, Dosing Weight 54.545, kg, Priority: STAT, Start date: 12/29/12 1:34:00, Stop date: 12/29/12 1:34:00 Ativan 2012-0 No Spencer 2 mg, 1 Memori a 8-31 Philip Fraser mL, Route: l 06:34: IVP, Drug [place] 00 form: INJ, ONCE, Dosing Weight 54.545, kg, Priority: STAT, Start date: 12/29/12 1:34:00, Stop date: 12/29/12 1:34:00 Ancef 2012-0 No Spencer 1 gm, Memoria 8-31 Philip Fraser Route: l 06:16: IVPB, Drug [place] 00 form: PDR/INJ, ONCE, Dosing Weight 54.545, kg, Priority: STAT, Start date: 12/29/12 1:16:00, Stop date: 12/29/12 1:16:00 gentamicin 2012-0 No Spencer 272 mg, Me moria + Sodium 8-31 Philip Fraser 6.8 mL, l Chloride 06:16: Route: [place] 0.9% IV 100 00 IVPB, mL ONCE, Dosing Weight 54.545, kg, Priority: STAT, Start date: 12/29/12 1:16:00, Stop date: 12/29/12 1:16:00 Ancef 2012-0 No Spencer 1 gm, Memoria 8-31 Philip Fraser Route: l 06:16: IVPB, Drug [place] 00 form: PDR/INJ, ONCE, Dosing Weight 54.545, kg, Priority: STAT, Start date: 12/29/12 1:16:00, Stop date: 12/29/12 1:16:00 gentamicin 2012-0 No Spencer 272 mg, Me moria + Sodium 8-31 Philip Fraser 6.8 mL, l Chloride 06:16: Route: [place] 0.9% IV 100 00 IVPB, mL ONCE, Dosing Weight 54.545, kg, Priority: STAT, Start date: 12/29/12 1:16:00, Stop date: 12/29/12 1:16:00 Ancef 2012-0 No [place] 1 gm, Memoria 8-31 Philip Fraser Route: l 06:16: IVPB, Drug [place] 00 form: PDR/INJ, ONCE, Dosing Weight 54.545, kg, Priority: STAT, Start date: 12/29/12 1:16:00, Stop date: 12/29/12 1:16:00 gentamicin 2012-0 No Spencer 272 mg, Me moria + Sodium 8-31 Philip Fraser 6.8 mL, l Chloride 06:16: Route: [place] 0.9% IV 100 00 IVPB, mL ONCE, Dosing Weight 54.545, kg, Priority: STAT, Start date: 12/29/12 1:16:00, Stop date: 12/29/12 1:16:00 Ancef 0 No [place] 1 gm, Memoria 8-31 Philip Fraser Route: l 06:16: IVPB, Drug [place] 00 form: PDR/INJ, ONCE, Dosing Weight 54.545, kg, Priority: STAT, Start date: 12/29/12 1:16:00, Stop date: 12/29/12 1:16:00 gentamicin 2012-0 No [place] 272 mg, Me moria + Sodium 8-31 Philip Fraser 6.8 mL, l Chloride 06:16: Route: [place] 0.9% IV 100 00 IVPB, mL ONCE, Dosing Weight 54.545, kg, Priority: STAT, Start date: 12/29/12 1:16:00, Stop date: 12/29/12 1:16:00 Ancef 0 No [place] 1 gm, Memoria 8-31 Philip Fraser Route: l 06:16: IVPB, Drug [place] 00 form: PDR/INJ, ONCE, Dosing Weight 54.545, kg, Priority: STAT, Start date: 12/29/12 1:16:00, Stop date: 12/29/12 1:16:00 gentamicin 2012-0 No [place] 272 mg, Me moria + Sodium 8-31 Philip Fraser 6.8 mL, l Chloride 06:16: Route: [place] 0.9% IV 100 00 IVPB, mL ONCE, Dosing Weight 54.545, kg, Priority: STAT, Start date: 12/29/12 1:16:00, Stop date: 12/29/12 1:16:00 lidocaine-e No Spencer 1 ml, Mem oria pi 12-29 Philip Fraser Route: l 1%-[id number] 05:42: SUB-Q, Herm boaz 00 Drug Form: SOLN, Dosing Weight 54.545, kg, ONCE, STAT, Start date: 12/29/12 0:42:00, Stop date: 12/29/12 0:42:00 lidocaine-e 2012- No Spencer 1 ml, Mem oria pi 12-29 Philip Fraser Route: l 1%-[id number] 05:42: SUB-Q, Herm boaz 00 Drug Form: SOLN, Dosing Weight 54.545, kg, ONCE, STAT, Start date: 12/29/12 0:42:00, Stop date: 12/29/12 0:42:00 lidocaine-e No Spencer 1 ml, Mem oria pi 12-29 Philip Fraser Route: l 1%-1:[id number] 05:42: SUB-Q, Herm boaz 00 Drug Form: SOLN, Dosing Weight 54.545, kg, ONCE, STAT, Start date: 12/29/12 0:42:00, Stop date: 12/29/12 0:42:00 lidocaine-e No Spencer 1 ml, Mem oria pi 12-29 Philip Fraser Route: l 1%-1:[id number] 05:42: SUB-Q, Herm boaz 00 Drug Form: SOLN, Dosing Weight 54.545, kg, ONCE, STAT, Start date: 12/29/12 0:42:00, Stop date: 12/29/12 0:42:00 lidocaine-e 2012-0 No Spencer 1 ml, Mem oria pi 12-29 Philip Fraser Route: l 1%-1:[id number] 05:42: SUB-Q, Herm boaz 00 Drug Form: SOLN, Dosing Weight 54.545, kg, ONCE, STAT, Start date: 12/29/12 0:42:00, Stop date: 12/29/12 0:42:00 Dilaudid 2012-0 No Spencer 2 mg, 1 Magdaleno pilo 8-31 Philip Fraser mL, Route: l 05:41: IV, Drug [place] 00 form: INJ, ONCE, Dosing Weight 54.545, kg, Start date: 12/29/12 0:41:00, Stop date: 12/29/12 0:41:00 Dilaudid 2012-0 No Spencer 2 mg, 1 Magdaleno pilo 8-31 Philip Fraser mL, Route: l 05:41: IV, Drug [place] 00 form: INJ, ONCE, Dosing Weight 54.545, kg, Start date: 12/29/12 0:41:00, Stop date: 12/29/12 0:41:00 Dilaudid 2012-0 No Spencer 2 mg, 1 Magdaleno pilo 8-31 Philip Fraser mL, Route: l 05:41: IV, Drug [place] 00 form: INJ, ONCE, Dosing Weight 54.545, kg, Start date: 12/29/12 0:41:00, Stop date: 12/29/12 0:41:00 Dilaudid 2012-0 No Spencer 2 mg, 1 Magdaleno pilo 8-31 Philip Fraser mL, Route: l 05:41: IV, Drug [place] 00 form: INJ, ONCE, Dosing Weight 54.545, kg, Start date: 12/29/12 0:41:00, Stop date: 12/29/12 0:41:00 Dilaudid 2012-0 No Spencer 2 mg, 1 Magdaleno pilo 8-31 Philip Fraser mL, Route: l 05:41: IV, Drug [place] 00 form: INJ, ONCE, Dosing Weight 54.545, kg, Start date: 12/29/12 0:41:00, Stop date: 12/29/12 0:41:00 Dilaudid 2012-0 No Spencer 1 mg, 0.5 Me moria 8-31 Philip Fraser mL, Route: l 04:19: IV, Drug [place] 00 form: INJ, ONCE, Dosing Weight 54.545, kg, Start date: 12/28/12 23:19:00, Stop date: 12/28/12 23:19:00 Dilaudid 2012-0 No Spencer 1 mg, 0.5 Me moria 8-31 Philip Fraser mL, Route: l 04:19: IV, Drug [place] form: INJ, ONCE, Dosing Weight 54.545, kg, Start date: 12/28/12 23:19:00, Stop date: 12/28/12 23:19:00 Dilaudid 2012-0 No Spencer 1 mg, 0.5 Me moria 8-31 Philip Fraser mL, Route: l 04:19: IV, Drug [place] 00 form: INJ, ONCE, Dosing Weight 54.545, kg, Start date: 12/28/12 23:19:00, Stop date: 12/28/12 23:19:00 Dilaudid 2012-0 No Spencer 1 mg, 0.5 Me moria 8-31 Philip Fraser mL, Route: l 04:19: IV, Drug [place] 00 form: INJ, ONCE, Dosing Weight 54.545, kg, Start date: 12/28/12 23:19:00, Stop date: 12/28/12 23:19:00 Dilaudid 2012-0 No Spencer 1 mg, 0.5 Me moria 8-31 Philip Fraser mL, Route: l 04:19: IV, Drug [place] 00 form: INJ, ONCE, Dosing Weight 54.545, kg, Start date: 12/28/12 23:19:00, Stop date: 12/28/12 23:19:00 Sodium 2012-0 No Spencer IV, 1000 Memor ia Chloride 8-31 Philip Fraser ml/hr, l 0.9% IV 03:30: Q1H, Start Herm date: 12/28/12 22:30:00, Duration: 2, 1,000 ml Sodium 2013-0 No Spencer IV, 1000 Memor ia Chloride 8-31 Philip Fraser ml/hr, l 0.9% IV 03:30: Q1H, Start Herm date: 12/28/12 22:30:00, Duration: 2, 1,000 ml Sodium 2012-0 No Spencer IV, 1000 Memor ia Chloride 8-31 Philip Fraser ml/hr, l 0.9% IV 03:30: Q1H, Start Herm boaz date: 12/28/12 22:30:00, Duration: 2, 1,000 ml Sodium 2013-0 No Spencer IV, 1000 Memor ia Chloride 8-31 Philip Fraser ml/hr, l 0.9% IV 03:30: Q1H, Start Herm boaz date: 12/28/12 22:30:00, Duration: 2, 1,000 ml Sodium 2012-0 No Spencer IV, 1000 Memor ia Chloride 8-31 Philip Fraser ml/hr, l 0.9% IV 03:30: Q1H, Start Herm boaz date: 12/28/12 22:30:00, Duration: 2, 1,000 ml morphine 2012-0 No Spencer 4 mg, Memori a Sulfate 8-31 Philip Fraser Route: l 03:14: IVP, Drug [place] form: INJ, ONCE, Dosing Weight 54.545, kg, Priority: STAT, Start date: 12/28/12 22:14:00, Stop date: 12/28/12 22:14:00 morphine 2012-0 No Spencer 4 mg, Memori a Sulfate 8-31 Philip Fraser Route: l 03:14: IVP, Drug [place] 00 form: INJ, ONCE, Dosing Weight 54.545, kg, Priority: STAT, Start date: 12/28/12 22:14:00, Stop date: 12/28/12 22:14:00 morphine 2012-0 No Spencer 4 mg, Memori a Sulfate 8-31 Philip Fraser Route: l 03:14: IVP, Drug [place] 00 form: INJ, ONCE, Dosing Weight 54.545, kg, Priority: STAT, Start date: 12/28/12 22:14:00, Stop date: 12/28/12 22:14:00 morphine 2012-0 No Spencer 4 mg, Memori a Sulfate 8-31 Philip Fraser Route: l 03:14: IVP, Drug [place] 00 form: INJ, ONCE, Dosing Weight 54.545, kg, Priority: STAT, Start date: 12/28/12 22:14:00, Stop date: 12/28/12 22:14:00 morphine 2012-0 No Spencer 4 mg, Memori a Sulfate 8-31 Philip Fraser Route: l 03:14: IVP, Drug [place] 00 form: INJ, ONCE, Dosing Weight 54.545, kg, Priority: STAT, Start date: 12/28/12 22:14:00, Stop date: 12/28/12 22:14:00 NS 2000 mL 2012-0 No Spencer 2,000 mL, Memoria 8-31 Philip Fraser Rate: l 02:58: 2,000 [place] 00 ml/hr, Infuse over: 1 hr, Route: IV, Dosing Weight 54.545 kg, Total Volume: 2,000, Start date: 12/28/12 21:58:00, Duration: 1 doses or times, Stop date: 12/28/12 22:57:00, Bolus DoseBolus Dose NS 2000 mL 2012-0 No Spencer 2,000 mL, Memoria 8-31 Philip Fraser Rate: l 02:58: 2,000 Bryson 00 ml/hr, Infuse over: 1 hr, Route: IV, Dosing Weight 54.545 kg, Total Volume: 2,000, Start date: 12/28/12 21:58:00, Duration: 1 doses or times, Stop date: 12/28/12 22:57:00, Bolus DoseBolus Dose NS 2000 mL 2012-0 No Spencer 2,000 mL, Memoria 8-31 Philip Fraser Rate: l 02:58: 2,000 Bryson 00 ml/hr, Infuse over: 1 hr, Route: IV, Dosing Weight 54.545 kg, Total Volume: 2,000, Start date: 12/28/12 21:58:00, Duration: 1 doses or times, Stop date: 12/28/12 22:57:00, Bolus DoseBolus Dose NS 2000 mL 2012-0 No Spencer 2,000 mL, Memoria 8-31 Philip Fraser Rate: l 02:58: 2,000 [place] 00 ml/hr, Infuse over: 1 hr, Route: IV, Dosing Weight 54.545 kg, Total Volume: 2,000, Start date: 12/28/12 21:58:00, Duration: 1 doses or times, Stop date: 12/28/12 22:57:00, Bolus DoseBolus Dose NS 2000 mL No Spencer 2,000 mL, Memoria 8-31 Philip Fraser Rate: l 02:58: 2,000 Bryson 00 ml/hr, Infuse over: 1 hr, Route: IV, Dosing Weight 54.545 kg, Total Volume: 2,000, Start date: 12/28/12 21:58:00, Duration: 1 doses or times, Stop date: 12/28/12 22:57:00, Bolus DoseBolus Dose Visipaque No Spencer 63 mL, Magdaleno pilo 320mg/ml 8-31 Philip Fraser Route: l 01:59: IVP, Drug [place] Form: SOLN, kg, ONCALL, STAT, Start date: 12/28/12 20:59:00, Duration: 1 doses or times, Weight = 40 - 59kg -- "To be infused by Radiology Staff ONLY"Weigh t = 40 - 59kg -- "To be infused by Radiology Staff ONLY" Visipaque No Spencer 63 mL, Magdaleno pilo 320mg/ml 8-31 Philip Fraser Route: l 01:59: IVP, Drug [place] Form: SOLN, kg, ONCALL, STAT, Start date: 12/28/12 20:59:00, Duration: 1 doses or times, Weight = 40 - 59kg -- "To be infused by Radiology Staff ONLY"Weigh t = 40 - 59kg -- "To be infused by Radiology Staff ONLY" Visipaque No Spencer 63 mL, Magdaleno pilo 320mg/ml 8-31 Philip Fraser Route: l 01:59: IVP, Drug [place] Form: SOLN, kg, ONCALL, STAT, Start date: 12/28/12 20:59:00, Duration: 1 doses or times, Weight = 40 - 59kg -- "To be infused by Radiology Staff ONLY"Weigh t = 40 - 59kg -- "To be infused by Radiology Staff ONLY" Visipaque No Spencer 63 mL, Magdaleno pilo 320mg/ml 8-31 Philip Fraser Route: l 01:59: IVP, Drug [place] Form: SOLN, kg, ONCALL, STAT, Start date: 12/28/12 20:59:00, Duration: 1 doses or times, Weight = 40 - 59kg -- "To be infused by Radiology Staff ONLY"Weigh t = 40 - 59kg -- "To be infused by Radiology Staff ONLY" Visipaque No Spencer 63 mL, Magdaleno pilo 320mg/ml 12-29 Philip Fraser Route: l 01:59: IVP, Drug [place] 00 Form: SOLN, kg, ONCALL, STAT, Start date: 12/28/12 20:59:00, Duration: 1 doses or times, Weight = 40 - 59kg -- "To be infused by Radiology Staff ONLY"Weigh t = 40 - 59kg -- "To be infused by Radiology Staff ONLY" morphine No Spencer 4 mg, 1 Magdaleno pilo Sulfate - Philip Fraser mL, Route: l 01:56: IVP, Drug [place] form: INJ, ONCE, kg, Priority: STAT, Start date: 12/28/12 20:56:00, Stop date: 12/28/12 20:56:00 ondansetron No Spencer 4 mg, 2 M emoria -31 Philip Fraser mL, Route: l 01:56: IVP, Drug [place] form: INJ, ONCE, kg, Priority: STAT, Start date: 12/28/12 20:56:00, Stop date: 12/28/12 20:56:00 Saline No Spencer 5 ml, Memoria Flush 0.9% 12-29 Philip Fraser Route: l 01:56: IVP, Drug [place] Form: INJ, kg, PRN, PRN Line Flush, Administer at least once every 12 hours, Start date: 12/28/12 20:56:00, Duration: 30 day, Stop date: 01/27/13 20:55:00 morphine 0 No Spencer 4 mg, 1 Magdaleno pilo Sulfate -31 Philip Fraser mL, Route: l 01:56: IVP, Drug [place] 00 form: INJ, ONCE, kg, Priority: STAT, Start date: 12/28/12 20:56:00, Stop date: 12/28/12 20:56:00 ondansetron 2013-0 No Spencer 4 mg, 2 M emoria 8-31 Philip Fraser mL, Route: l 01:56: IVP, Drug [place] 00 form: INJ, ONCE, kg, Priority: STAT, Start date: 12/28/12 20:56:00, Stop date: 12/28/12 20:56:00 Saline 2012-0 No Spencer 5 ml, Memoria Flush 0.9% 8-31 Philip Fraser Route: l 01:56: IVP, Drug [place] 00 Form: INJ, kg, PRN, PRN Line Flush, Administer at least once every 12 hours, Start date: 12/28/12 20:56:00, Duration: 30 day, Stop date: 01/27/13 20:55:00 morphine 2012-0 No Spencer 4 mg, 1 Magdaleno pilo Sulfate 8-31 Philip Fraser mL, Route: l 01:56: IVP, Drug [place] form: INJ, ONCE, kg, Priority: STAT, Start date: 12/28/12 20:56:00, Stop date: 12/28/12 20:56:00 ondansetron 2012-0 No Spencer 4 mg, 2 M emoria 8-31 Philip Fraser mL, Route: l 01:56: IVP, Drug [place] form: INJ, ONCE, kg, Priority: STAT, Start date: 12/28/12 20:56:00, Stop date: 12/28/12 20:56:00 Saline 2012-0 No Spencer 5 ml, Memoria Flush 0.9% 8-31 Philip Fraser Route: l 01:56: IVP, Drug [place] 00 Form: INJ, kg, PRN, PRN Line Flush, Administer at least once every 12 hours, Start date: 12/28/12 20:56:00, Duration: 30 day, Stop date: 01/27/13 20:55:00 morphine 2012-0 No Spencer 4 mg, 1 Magdaleno pilo Sulfate 8-31 Philip Fraser mL, Route: l 01:56: IVP, Drug [place] 00 form: INJ, ONCE, kg, Priority: STAT, Start date: 12/28/12 20:56:00, Stop date: 12/28/12 20:56:00 ondansetron 2012-0 No Spencer 4 mg, 2 M emoria 8-31 Philip Fraser mL, Route: l 01:56: IVP, Drug [place] 00 form: INJ, ONCE, kg, Priority: STAT, Start date: 12/28/12 20:56:00, Stop date: 12/28/12 20:56:00 Saline 2012-0 No Spencer 5 ml, Memoria Flush 0.9% 8- Philip Fraser Route: l 01:56: IVP, Drug [place] 00 Form: INJ, kg, PRN, PRN Line Flush, Administer at least once every 12 hours, Start date: 12/28/12 20:56:00, Duration: 30 day, Stop date: 01/27/13 20:55:00 morphine 2012-0 No Spencer 4 mg, 1 Magdaleno pilo Sulfate - Philip Fraser mL, Route: l 01:56: IVP, Drug [place] form: INJ, ONCE, kg, Priority: STAT, Start date: 12/28/12 20:56:00, Stop date: 12/28/12 20:56:00 ondansetron 2012-0 No Spencer 4 mg, 2 M emoria -31 Philip Fraser mL, Route: l 01:56: IVP, Drug [place] form: INJ, ONCE, kg, Priority: STAT, Start date: 12/28/12 20:56:00, Stop date: 12/28/12 20:56:00 Saline 2012-0 No Spencer 5 ml, Memoria Flush 0.9% - Philip Fraser Route: l 01:56: IVP, Drug [place] Form: INJ, kg, PRN, PRN Line Flush, Administer at least once every 12 hours, Start date: 12/28/12 20:56:00, Duration: 30 day, Stop date: 01/27/13 20:55:00 Vital Signs Vital Name Observation Time Observation Value Comments Source Systolic blood 2021-05-30 118 mm[Hg] [facility] 08:21[facility]00 [facility] Diastolic blood 2021-05-30 79 mm[Hg] [facility] 08:21:00 [facility] Heart rate 2021-05-30 91 /min [facility] 08:21:00 [facility] Body temperature 2021-05-30 36.83 Sarah Beth [facility] 08:21:00 [facility] Respiratory rate 2021-05-30 20 /min [facility] 08:21: [facility] Body weight 2021-05-30 56.7 kg [facility] 08:21: [facility] BMI 2021-05-30 18.46 kg/m2 [facility] 08:21:00 [facility] Oxygen saturation 2021-05-30 100 /min [facility] in Arterial blood 08:21:00 [facility] by Pulse oximetry [place] Systolic blood 2022-04-28 128 mm[Hg] [facility] 01:20: [facility] Diastolic blood 2022-04-28 75 mm[Hg] [facility] pressure 01:20: [facility] Heart rate 2022-04-28 78 /min [facility] 01:20:01 [facility] Body temperature 2022-04-28 36.22 Sarah Beth [facility] 01:20:01 [facility] Respiratory rate 2022-04-28 17 /min [facility] 01:20:01 [facility] Oxygen saturation 2022-04-28 98 /min [facility] in Arterial blood 01:20:01 [facility] by Pulse oximetry Body height 2022-04-27 175.3 cm [facility] 22:09:00 [facility] Body weight 2022-04-27 63.504 kg [facility] 22:09:00 [facility] BMI 2022-04-27 20.67 kg/m2 [facility] 22:09:00 [facility] Systolic blood 2022-03-29 120 mm[Hg] [facility] pressure 16:21:00 Diastolic blood 2022-03-29 87 mm[Hg] [facility] 16:21:00 Heart rate 2022-03-29 98 /min [facility] 16:21:00 Body temperature 2022-03-29 36.28 [facility] 16:21:00 Respiratory rate 2022-03-29 17 /min [facility] th 16:21:00 Oxygen saturation 2022-03-29 99 /min [facility] in Arterial blood 16:21:00 by Pulse oximetry Systolic blood 2022-03-10 105 mm[Hg] [facility] pressure 22:00:00 Diastolic blood 2022-03-10 76 mm[Hg] [facility] pressure 22:00:00 Heart rate 2022-03-10 64 /min [facility] 22:00:00 Respiratory rate 2022-03-10 18 /min [facility] 22:00:00 Oxygen saturation 2022-03-10 99 /min [facility] Arterial blood 22:00:00 by Pulse oximetry Body temperature 2022-03-10 36.67 Sarah Beth [facility] 19:29:00 Body height 2022-03-10 175.3 cm [facility] 05:39:00 Body weight 2022-03-10 58.968 kg [facility] 05:39:00 BMI 2022-03-10 19.20 kg/m2 [facility] 05:39:00 Systolic blood 2022-03-09 120 mm[Hg] [facility] 22:42:22 Hospital Diastolic blood 2022-03-09 79 mm[Hg] [facility] 22:42:22 Hospital Heart rate 2022-03-09 73 /min [facility] 22:42:22 Hospital Body temperature 2022-03-09 36.89 Sarah Beth [facility] 22:42:22 Hospital Respiratory rate 2022-03-09 20 /min [facility] 22:42:22 Hospital Oxygen saturation 2022-03-09 96 /min [facility] in Arterial blood 22:42:22 [facility] by Pulse oximetry Body height 2022-03-09 172.7 cm [facility] 22:40:00 Hospital Body weight 2022-03-09 62.596 kg [facility] 22:40:00 Hospital BMI 2022-03-09 20.98 kg/m2 [facility] 22:40:00 Hospital Systolic blood 2022-02-04 108 mm[Hg] [facility] pressure 23:16:00 Diastolic blood 2022-02-04 71 mm[Hg] [facility] pressure 23:16:00 Heart rate 2022-02-04 59 /min Notify RN Jazmine [facility] 23:16:00 Body temperature 2022-02-04 36.56 Sarah Beth [facility] 23:16:00 Respiratory rate 2022-02-04 19 /min [facility] 23:16:00 Oxygen saturation 2022-02-04 100 /min [facility] in Arterial blood 23:16:00 by Pulse oximetry Body height 2022-02-04 175.3 cm [facility] 09:28:00 Body weight 2022-02-04 65.8 kg [facility] 09:28:00 BMI 2022-02-04 21.42 kg/m2 [facility] 09:28:00 Systolic blood 2022-01-13 122 mm[Hg] [facility] 02:14:00 Hospital Diastolic blood 2022-01-13 84 mm[Hg] [facility] 02:14:00 Hospital Heart rate 2022-01-13 79 /min [facility] 02:14:00 Hospital Body temperature 2022-01-13 36.56 Sarah Beth [facility] 02:14:00 Hospital Respiratory rate 2022-01-13 16 /min [facility] 02:14:00 Hospital Oxygen saturation 2022-01-13 95 /min [facility] in Arterial blood 02:14:00 Hospital by Pulse oximetry Systolic (mm Hg) 2019-12-15 [facility] rmann 06:24:00 Diastolic (mm Hg) 2019-12-15 [facility] ermann 06:24:00 Respitory Rate 2019-12-15 [facility] 06:24:00 Temperature Oral 2019-12-15 99 F [facility] rmann (F) 06:24:00 Respitory Rate 2019-12-15 [facility] 06:03:00 Respitory Rate 2019-12-15 [facility] Herm boaz 04:44:00 Systolic (mm Hg) 2019-12-15 [facility] rmann 04:44:00 Diastolic (mm Hg) 2019-12-15 [facility] ermann 04:44:00 Systolic (mm Hg) 2019-12-15 [facility] rmann 04:25:00 Diastolic (mm Hg) 2019-12-15 [facility] ermann 04:25:00 Heart Rate 2019-12-15 [facility] Abdiaziz n 04:25:00 Temperature Oral 2019-12-15 99.7 F [facility] rmann (F) 04:25:00 Systolic (mm Hg) 2018-04-18 [facility] rmann 16:28:00 Diastolic (mm Hg) 2018-04-18 [facility] ermann 16:28:00 Respitory Rate 2018-04-18 [facility] 16:28:00 Temperature Oral 2018-04-18 98.0 F [facility] rmann (F) 16:28:00 Systolic (mm Hg) 2018-04-18 [facility] rmann 15:12:00 Diastolic (mm Hg) 2018-04-18 [facility] ermann 15:12:00 Respitory Rate 2018-04-18 [facility] [...] He rmann 14:00:00 Diastolic (mm Hg) 2018-04-14 [facility] H ermann 14:00:00 Heart Rate 2018-04-14 [facility] [...] Herm boaz 02:12:00 Height 2016-01-14 175.26 cm Jennifer Abdiaziz n 02:12:00 Temperature Oral 2016-01-14 98.5 F [facility] rmann (F) 02:12:00 Heart Rate 2016-01-14 [facility] Abdiaziz n 02:12:00 Diastolic (mm Hg) 2012-12-31 [facility] ermann 01:48:00 Systolic (mm Hg) 2012-12-31 [facility] rmann 01:48:00 Respitory Rate 2012-12-31 [facility] 01:48:00 Heart Rate 2012-12-31 [facility] Abdiaziz n 01:48:00 Temperature Oral 2012-12-31 98.3 F [facility] Dwight rmann (F) 01:48:00 Diastolic (mm Hg) 2012-12-30 [facility] ermann 20:21:00 Systolic (mm Hg) 2012-12-30 [facility] rmann 20:21:00 Respitory Rate 2012-12-30 [facility]az 20:21:00 Heart Rate 2012-12-30 [facility] Abdiaziz n 20:21:00 Temperature Oral 2012-12-30 97.5 F [facility] Dwight rmann (F) 20:21:00 Heart Rate 2012-12-30 [facility] Abdiaziz n 16:18:00 Temperature Oral 2012-12-30 97 F [facility] Dwight rmann (F) 16:18:00 Respitory Rate 2012-12-30 [facility] 16:18:00 Diastolic (mm Hg) 2012-12-30 [facility] ermann 16:18:00 Systolic (mm Hg) 2012-12-30 [facility] rmann 16:18:00 Height 2012-12-29 175.26 cm [facility] Abdiaziz n 02:00:00 Weight 2012-12-29 [facility] Abdiaziz n 02:00:00 Procedures Procedure Date / Time Performing Clinician Source Performed RESPIRATORY PATHOGEN 2022-04-27 23:32:00 [facility] PANEL WITH COVID-19 [facility] RT-PCR INFLUENZA ANTIGEN 2022-04-27 23:32:00 [facility] GROUP A STREP, RAPID 2022-04-27 23:32:00 [facility] ANTIGEN [facility] STREP SCREEN CULTURE 2022-04-27 23:32:00 [facility] XR NECK SOFT TISSUE 2022-04-27 23:09:45 [facility]W 2022-04-27 23:09:20 Kwame Alanis Ho spital [facility] VALPROIC ACID 2022-03-14 06:16:00 Holly Jarrell alth COMPREHENSIVE METABOLIC 2022-03-13 07:33:00 [facility] PANEL LIPID PROFILE 2022-03-13 07:33:00 Holly Jarrell alth HEMOGLOBIN A1C 2022-03-13 07:33:00 Holly Jarrell alth SYPHILIS MONITOR FOR 2022-03-13 07:33:00 [facility] TREATMENT THYROID STIMULATING 2022-03-13 07:33:00 Holly Jarrell [facility] HORMONE (TSH) HIV AG/AB COMBO ROUTINE 2022-03-13 07:33:00 [facility]rell [facility] SCREENING BMP POC 2022-03-10 11:48:00 Emre Acuna lth CREATININE POC 2022-03-10 11:47:00 Emre Acuna lt SARS-COV-2, FLU A/B, RSV 2022-03-10 11:35:00 [facility] COVID-19, 2022-03-10 11:35:00 [facility] PORTIA CBC WITH PLATELET AND 2022-03-09 23:22:00 [facility] DIFFERENTIAL BASIC METABOLIC PANEL 2022-03-09 23:22:00 [facility] ACETAMINOPHEN LEVEL 2022-03-09 23:22:00 [facility] SALICYLATE LEVEL 2022-03-09 23:22:00 [facility] ESTIMATED GFR 2022-03-09 23:22:00 [facility] XRAY CHEST 1 VIEW - TB 2022-03-05 05:15:14 [facility] SCREEN (AFFLIATE) SARS-COV-2 PCR RAPID TEST 2022-03-05 00:00:00 Provider, [facility] Med POC GLUCOSE-AFFILIATE 2022-03-05 00:00:00 Provider, [facility] MANUALLY ENTERED Med POC GLUCOSE-AFFILIATE 2022-02-28 00:00:00 Provider, [facility] MANUALLY ENTERED Med CONSULT CLINICAL CASE 2022-02-04 12:29:21 [facility] MANAGEMENT (RN/SW) XRAY FOOT 3 VIEWS MIN 2022-02-04 10:59:00 [facility] XRAY ANKLE 3 VIEW MIN 2022-02-04 10:59:00 [facility] URINE CULTURE 2022-01-13 05:32:00 Rehrer, [facility] URINE DRUGS OF ABUSE 2022-01-13 05:32:00 Rehrer, [facility] SCREEN URINALYSIS SCREEN AND 2022-01-13 05:32:00 Rehrer, [facility] MICROSCOPY, WITH REFLEX TO CULTURE COVID-19 QUALITATIVE 2022-01-13 03:52:00 Rehrer, [facility] RT-PCR COVID-19 OMICRON VARIANT 2022-01-13 03:52:00 Rehrer, [facility] QUALITATIVE RT-PCR CBC WITH PLATELET AND 2022-01-13 03:52:00 Rehrer, [facility] DIFFERENTIAL COMPREHENSIVE METABOLIC 2022-01-13 03:52:00 Rehrer, [facility] PANEL THYROID STIMULATING 2022-01-13 03:52:00 Rehrer, [facility] HORMONE T4, FREE 2022-01-13 03:52:00 Rehrer, [facility] ALCOHOL LEVEL, BLOOD 2022-01-13 03:52:00 Rehrer, [facility] ACETAMINOPHEN LEVEL 2022-01-13 03:52:00 Rehrer, [facility] SALICYLATE LEVEL 2022-01-13 03:52:00 Rehrer, [facility] ESTIMATED GFR 2022-01-13 03:52:00 Rehrer, [facility] ECG ED PRELIMINARY 2022-01-13 02:35:02 Rehrer, [facility] INTERPRETATION CONSULT CLINICAL CASE 2022-01-12 20:09:34 [facility] MANAGEMENT (RN/SW) ACETAMINOPHEN 2022-01-12 12:37:00 MartaInocencia [facility] 12 LEAD EKG 2022-01-12 11:30:22 Marta Inocencia [facility] CONSENT/REFUSAL FOR 2021-05-30 08:08:34 [facility] Plan of Care Planned Activity Planned Date Details Comments Source Future Scheduled 2022-04-29 COVID-19 VACCINE (#1) [facility] Test 14:17:11 [code = COVID-19 VACCINE (#1)] Future Scheduled 2022-04-29 Pneumococcal Vaccine: [facility] Test 14:17:11 Pediatrics (0 to 5 Years) and At-Risk Patients (6 to 64 Years) (1 - PCV) [code = Pneumococcal Vaccine: Pediatrics (0 to 5 Years) and At-Risk Patients (6 to 64 Years) (1 - PCV)] Future Scheduled 2022-04-29 Hepatitis C screening [facility] Test 14:17:11 (procedure) [code = [id number]] Future Scheduled 2022-04-29 [facility]ACC[facility] 14:17:11 [code = INFLUENZA VACCINE] Future Scheduled 2022-04-14 COVID-19 VACCINE (#1) [facility] Test 22:41:37 [code = COVID-19 VACCINE (#1)] Future Scheduled 2022-04-14 Pneumococcal Vaccine: [facility] Test 22:41:37 Pediatrics (0 to 5 Years) and At-Risk Patients (6 to 64 Years) (1 - PCV) [code = Pneumococcal Vaccine: Pediatrics (0 to 5 Years) and At-Risk Patients (6 to 64 Years) (1 - PCV)] Future Scheduled 2022-04-14 Hepatitis C screening [facility] Test 22:41:37 (procedure) [code = 383291946] Future Scheduled 2022-04-14 [facility] 22:41:37 [code = INFLUENZA VACCINE] Future Scheduled 2022-03-09 HEPATITIS B VACCINES [facility] Test 19:41:41 (1 of 3 - 3-dose series) [code = HEPATITIS B VACCINES (1 of 3 - 3-dose series)] Future Scheduled 2022-03-09 COVID-19 VACCINE (#1) [facility] Test 19:41:41 [code = COVID-19 VACCINE (#1)] Future Scheduled 2022-03-09 Pneumococcal Vaccine: [facility] Test 19:41:41 Pediatrics (0 to 5 Years) and At-Risk Patients (6 to 64 Years) (1 - PCV) [code = Pneumococcal Vaccine: Pediatrics (0 to 5 Years) and At-Risk Patients (6 to 64 Years) (1 - PCV)] Future Scheduled 2022-03-09 Hepatitis C screening [facility] Test 19:41:41 (procedure) [code = 135825252] Future Scheduled 2022-03-09 [facility]ACCINE [facility] Test 19:41:41 [code = INFLUENZA [...] Future Scheduled 2022-01-13 HEPATITIS B VACCINES [facility] Test 01:43:47 (1 of 3 - 3-dose series) [code = HEPATITIS B VACCINES (1 of 3 - 3-dose series)] Future Scheduled 2022-01-13 COVID-19 VACCINE (#1) [facility] Test 01:43:47 [code = COVID-19 VACCINE (#1)] Future Scheduled 2022-01-13 Pneumococcal Vaccine: [facility] Test 01:43:47 Pediatrics (0 to 5 Years) and At-Risk Patients (6 to 64 Years) (1 - PCV) [code = Pneumococcal Vaccine: Pediatrics (0 to 5 Years) and At-Risk Patients (6 to 64 Years) (1 - PCV)] Future Scheduled 2022-01-13 Hepatitis C screening [facility] Test 01:43:47 (procedure) [code = 065642618] Future Scheduled 2022-01-13 [facility] VACCINE [facility] Test 01:43:47 [code = INFLUENZA VACCINE] Future Scheduled 2022-01-13 HEPATITIS B VACCINES [facility] Test 01:43:47 (1 of 3 - 3-dose series) [code = HEPATITIS B VACCINES (1 of 3 - 3-dose series)] Future Scheduled 2022-01-13 COVID-19 VACCINE (#1) [facility] Test 01:43:47 [code = COVID-19 VACCINE (#1)] Future Scheduled 2022-01-13 Pneumococcal Vaccine: [facility] Test 01:43:47 Pediatrics (0 to 5 Years) and At-Risk Patients (6 to 64 Years) (1 - PCV) [code = Pneumococcal Vaccine: Pediatrics (0 to 5 Years) and At-Risk Patients (6 to 64 Years) (1 - PCV)] Future Scheduled 2022-01-13 Hepatitis C screening [facility] Test 01:43:47 (procedure) [code = 912494847] Future Scheduled 2022-01-13 [facility]FLU[facility]ZA VACCINE [facility] Test 01:43:47 [code = INFLUENZA VACCINE] [...] Date/Time Type Type Clinicians Facility Department ID 2022-04-27 2022-04-27 Emergency Gagan, 1.2.840.1 [id number] Methodi 16:41:00 19:24:00 Laury 97338.1.1 551 [facility] 3.430.2.7 Hospit a .3.725712 l .8 2022-04-27 2022-04-27 Emergency [facility] [id number] [place] [address] 00:00:00 00:00:00 LAURY [address] 2022-03-30 2022-03-30 Outpatient YANG, [facility] [id number] [place] 00:00:00 00:00:00 [facility] 2022-03-10 2022-03-14 Hospital 2 COVERDA, [facility] [id number] 126 [place] 22:17:00 15:10:00 Encounter WILBER [facility] 2022-03-10 2022-03-14 [facility] [place], [facility] [id number] 126 [place] 22:17:00 15:10:00 Encounter Wilber Jaramillo [facility] 2022-03-10 2022-03-10 Emergency 1 [facility] [id number] [place] 06:16:00 22:11:00 [facility] 2022-03-10 2022-03-10 Emergency Emre Acuna [facility] [id number] [place] 06:16:00 22:11:00 [facility] 2022-03-09 2022-03-09 Emergency Yang, 1.2.840.1 [id number] 2100 [id number] Methodi 16:47:00 20:21:00 Lamar 65867.1.1 821 [facility] 3.430.2.7 Ho spita .3.804956 l .8 2022-03-09 2022-03-09 Emergency YANG, [facility] 064 [id number] 42 [place] 00:00:00 00:00:00 LAMAR 821 Method i 2022-02-24 2022-02-24 Outpatient [facility] [id number] [place] 00:00:00 00:00:00 [facility] 2022-02-04 2022-02-05 Emergency [facility] [id number] [place] 23:51:00 00:17:00 , THOMAS [facility] 2022-02-04 2022-02-05 Emergency [facility] [id number] [place] 23:51:00 00:17:00 Thomas Kelly [facility] 2022-02-04 2022-02-04 Emergency [facility] [id number] [place] 10:18:51 10:59:41 [facility] 2022-01-12 2022-01-13 Emergency Rehrer, 1.2.840.1 [id number] Methodi 21:16:00 06:04:[address] 3.430.2.7 Hospit a .3.991698 l .8 2022-01-12 2022-01-13 Emergency Rehrer, 1.2.840.1 [id number] [id number] Methodi 21:16:00 06:04:00 [address] 3.430.2.7 Hospit a .3.958850 l .8 2022-01-12 2022-01-12 [facility] MED [id number] 9 [place] 20:08:00 22:12:00 [facility] 2022-01-12 2022-01-12 Emergency [facility] [id number] [place] 20:08:00 22:12:00 [facility] 2022-01-12 2022-01-12 Travel 1.2.840.1 1.2.036.687 [id number] Methodi 00:00:00 00:00:[address] 3.430.2.7 0.2.7.3.698 Ho spita .3.956843 084.8 l .8 2022-01-12 2022-01-12 Travel 1.2.840.1 1.2.838.410 [id number] [id number] Methodi 00:00:00 00:00:[address] 3.430.2.7 0.2.7.3.698 Ho spita .3.748869 084.8 l .8 2021-12-30 2021-12-30 Emergency Emergency Afuwape, [facility] [id number] [facility] 00:14:00 00:14:00 Lukuman 92 2021-12-30 2021-12-30 Emergency [facility] [id number] [address] [facility] 00:14:00 00:14:00 92 2021-12-29 2021-12-29 Emergency 1.2.840.1 [id number] [id number] Methodi 00:27:00 01:06:[address] 3.430.2.7 Hospit a .3.754748 l .8 2021-12-29 2021-12-29 Emergency 1.2.840.1 [id number] Methodi 00:27:00 01:06:[address] 3.430.2.7 Hospit a .3.484226 l .8 2021-12-29 2021-12-29 Travel 1.2.840.1 1.2.499.787 2557 [id number] Methodi 00:00:00 00:00:[address] 3.430.2.7 0.2.7.3.698 Ho spita .3.857509 084.8 l .8 2021-12-29 2021-12-29 Travel 1.2.840.1 1.2.598.879 8749 [id number] Methodi 00:00:00 00:00:[address] 3.430.2.7 0.2.7.3.698 Ho spita .3.701960 084.8 l .8 2021-05-30 2021-05-30 Emergency [facility] 1.2.806.167 [id number] Univers 02:35:00 02:50:00 [place] CHANEY 350.1.13.10 ity of ANDREWS 4.2.7.2.686 [facility] [id number] [facility] [address] 2021-05-30 2021-05-30 Emergency X [facility] ERT [id number] Univers 02:35:00 02:50:00 [place] dailey of [facility] 2021-05-30 2021-05-30 Orders Doctor MERINO 1.2.840.114 [id number] Univers 00:00:00 00:00:00 Only Unassigned, ARAM[place] 350.1.13.10 it[place] [facility] 4.2.7.2.686 [facility] [id number] [facility] 009 [address] 2021-05-30 2021-05-30 Letter WILBER Harris 1.2.399.261 [id number] Univers 00:00:00 00:00:00 (Out) Roshan SELF 350.1.13.10 [facility] 4.2.7.2.686 Ward as [id number] [address] 2019-12-15 2019-12-15 [facility] [id number] Memoria 04:20:04 08:22:00 r Bryson [address] [place] [address] 2019-12-15 2019-12-15 [facility] [id number] Memoria 04:20:04 08:22:[address] 2019-12-14 2019-12-15 [facility] [id number] 23:20:04 03:22:00 Elio Sweeney [facility] 2019-12-14 2019-12-15 Emergency [facility] [id number] Memoria 23:20:00 03:22:00 ELIO Massey [facility] 2018-04-18 2018-04-18 [facility] [id number] Memoria 11:54:00 16:31:[address] 2018-04-18 2018-04-18 [facility] [id number] Memoria 11:54:00 16:31:00 r Bryson [address] [place] [address] 2018-04-18 2018-04-18 Outpatient Shawna [facility] [id number] 05:54:00 10:31:00 Sb Yostrey 2018-04-12 2018-04-14 [facility] [id number] Memoria 21:46:00 21:30:[address] 2018-04-12 2018-04-14 [facility] [id number] Memoria 21:46:00 21:30:[address] 2018-04-12 2018-04-14 Outpatient Mena [facility] [id number] 15:46:00 15:30:00 Eddie Merino 06 2016-05-01 2016-05-01 [facility] [id number] Memoria 01:27:00 07:00:00 r Bryson [address] [facility] 2016-05-01 2016-05-01 Emergency [facility] [id number] Memoria 01:27:00 07:00:00 r Bryson [address] [facility] 2016-04-30 2016-05-01 Outpatient SUMMER Lepe [facility] [id number] 19:27:00 01:00:00 Hirambart Delgado 2016-04-30 2016-04-30 [facility] [id number] Memoria 10:30:00 13:04:00 r Bryson [address] [facility] 2016-04-30 2016-04-30 [facility] [id number] Memoria 10:30:00 13:04:00 swapnil Massey [address] [facility] 2016-04-30 2016-04-30 Outpatient Heide [place] [id number] 04:30:00 07:04:00 Santana 2016-04-07 2016-04-07 [facility] [id number] Memoria 01:26:00 16:46:00 r Bryson [facility] 2016-04-07 2016-04-07 Emergency nullFlavo [facility] [id number] Memoria 01:26:00 16:46:00 swapnil Cheatham [facility] 2016-04-06 2016-04-07 Outpatient Constantino [facility] [id number] 19:26:00 10:46:00 Mirta andre 2016-01-14 2016-01-14 Emergency [facility] [id number] Memoria 02:11:00 08:00:00 swapnil Massey [facility] 2016-01-14 2016-01-14 Emergency [facility] [id number] Memoria 02:11:00 08:00:00 swapnil Massey [facility] 2016-01-13 2016-01-14 Outpatient Jacob [facility] [id number] 21:11:00 03:00:00 Noemi Shi 2012-12-29 2012-12-30 Inpatient nullFlavo [facility] [id number] Memoria 04:32:00 21:30:00 r Medical 00 l [facility] 2012-12-29 2012-12-30 Inpatient nullFlavo [facility] [id number] [facility] 04:32:00 21:30:00 r [facility] l [facility] Results Test Description Test Time Test Comments Results Result Comments Source Strep screen culture 2022-04-30 07:18:00 Test Item Value Reference Range Interpretation Comme nts Strep screen culture No beta hemolytic Sp ecimen InformationSpecimen isolate (test code = Streptococci isolated Source: ThroatSpecimen Site: Not 547-0) otherwise [facility]i [facility]ied [id number] 09:23:21 Test Item Value Reference Range Interpretation Comments RPR Ser Ql (test code = 05340-0) NON-REACTIVE Non-reactive HHSHIV 1+2 Ab+HIV1 p24 Ag SerPl Ql [id number] 08:57:46 Test Item Value Reference Range Interpretation Comments HIV 1+2 Ab+HIV1 p24 Ag SerPl Ql IA NEGATIVE Negative (test code = 54348-7) HHSCoronavirus, CoVID-19, [id number] 13:03:17 Test Item Value Reference Interpretation Comments Range COVID-19 Not Detected Not Detected INTERPRETATION: (SARS-COV-2) (test No detect able code = 69071-1) levels of SARS-CoV-2 Coronavirus (COVID-19) were present [...] its performance characteristics were verified by the [facility] molecular diagnostics laboratory and is authorized for clinical diagnostic use. This laboratory is certified under the Clinical Laboratory Improvement Amendments (CLIA) as qualified to perform high complexity clinical laboratory testing. Lab Interpretation Normal (test code = 67120-6) Christian Blasronavirus, CoVID-19, [id number] 13:03:17 Test Item Value Reference Interpretation Comments Range COVID-19 Not Detected Not Detected INTERPRETATION: (SARS-COV-2) (test No detect able code = 23513-9) levels of SARS-CoV-2 Coronavirus (COVID-19) were present [...] its performance characteristics were verified by the [facility] molecular diagnostics laboratory and is authorized for clinical diagnostic use. This laboratory is certified under the Clinical Laboratory Improvement Amendments (CLIA) as qualified to perform high complexity clinical laboratory testing. Lab Interpretation Normal (test code = 73486-6) Christian Blasronavirus, CoVID-19, [id number] 13:03:17 Test Item Value Reference Interpretation Comments Range COVID-19 Not Detected Not Detected INTERPRETATION: (SARS-COV-2) (test No detect able code = 98530-5) levels of SARS-CoV-2 Coronavirus (COVID-19) were present [...] its performance characteristics were verified by the [facility] molecular diagnostics laboratory and is authorized for clinical diagnostic use. This laboratory is certified under the Clinical Laboratory Improvement Amendments (CLIA) as qualified to perform high complexity clinical laboratory testing. Lab Interpretation Normal (test code = 08551-5) [facility]-CoV-2 RNA Resp Ql PORTIA+[id number] 13:03:17 Test Item Value Reference Range Interpretation Comments Hospitalized? (test No code = 63926-2) ICU? (test code = No 73447-0) Symptomatic as defined No by CDC? (test code = 50503-4) Employed in No Healthcare? (test code = 00910-3) Resident in a Yes congregate care setting (including nursing homes, residential care for people with intellectual and developmental disabilities, psychiatric treatment facilities, group homes, board and care homes, homeless longterm, foster care or other): (test code = 16440-1) SARS-CoV-2 RNA Resp Ql NOT DETECTED Not Detected INTER PRETATION: No PORTIA+probe (test code = detec table levels 98939-7) of SARS-CoV-2 Coronavirus (COVID-19) were present in [...] its performance characteristics were verified by the [facility] molecular diagnostics laboratory and is authorized for clinical diagnostic use. This laboratory is certified under the Clinical Laboratory Improvement Amendments (CLIA) as qualified to perform high complexity clinical laboratory testing.[facility] BMP POC docked [id number] 11:49:51 Test Item Value Reference Range Interpretation Comments Sodium POC (test code = 140 mmol/L 136-145 35429444) Potassium POC (test code 4.0 mmol/L 3.5-5.1 = 11790448) Chloride POC (test code 104 mmol/L 98-107 = 48248116) TCO2 POC (test code = 28 mmol/L 21-32 Physic seha Notified 32091405) Urea Nitrogen POC (test 19 mg/dL 7-18 H code = 09021067) Glucose POC (test code = 79 mg/dL 74-106 86005386) Hemoglobin POC (test 13.9 g/dL 12-16 code = 83751910) Hematocrit POC (test 41.0 % 37.0-47.0 code = 95382707) Lab Interpretation (test Abnormal code = 79008-7) [facility] CREATININE POC docked [id number] 11:49:51 Test Item Value Reference Range Interpretation Comments Creatinine POC (test 1.0 mg/dL 0.6-1.3 Physici an Notified code = 80638031) eGFR If non- Am 98 See_Comment [Aut omated message] (test code = 66621716) The s ystem which generated this result transmit abdelrahman reference range : >=90 mL/min/1.7 3 m2. The reference r annemarie was not used to interpret this result as normal/abnormal . eGFR If Am (test 114 See_Comment [A utomated message] code = 91649172) The system which generated this result transmit abdelrahman reference range : >=90 mL/min/1.7 3 m2. The reference r annemarie was not used to interpret this result as normal/abnormal . Lab Interpretation (test Normal code = 92351-5) [facility] BMP POC docked [id number] 11:49:51 Test Item Value Reference Range Interpretation Comments Sodium POC (test code = 140 mmol/L 136-145 98180250) Potassium POC (test code 4.0 mmol/L 3.5-5.1 = 85333978) Chloride POC (test code 104 mmol/L 98-107 = 21884342) TCO2 POC (test code = 28 mmol/L 21-32 Physic shea Notified 79996457) Urea Nitrogen POC (test 19 mg/dL 7-18 H code = 90977297) Glucose POC (test code = 79 mg/dL 74-106 51732613) Hemoglobin POC (test 13.9 g/dL 12-16 code = 53830015) Hematocrit POC (test 41.0 % 37.0-47.0 code = 04541859) Lab Interpretation (test Abnormal code = 21313-2) [facility] CREATININE POC docked [id number] 11:49:51 Test Item Value Reference Range Interpretation Comments Creatinine POC (test 1.0 mg/dL 0.6-1.3 Physici an Notified code = 71298445) eGFR If non- Am 98 See_Comment [Aut omated message] (test code = 21297409) The s ystem which generated this result transmit abdelrahman reference range : >=90 mL/min/1.7 3 m2. The reference r annemarie was not used to interpret this result as normal/abnormal . eGFR If Am (test 114 See_Comment [A utomated message] code = 95587477) The system which generated this result transmit abdelrahman reference range : >=90 mL/min/1.7 3 m2. The reference r annemarie was not used to interpret this result as normal/abnormal . Lab Interpretation (test Normal code = 18264-9) [facility] BMP POC docked [id number] 11:49:51 Test Item Value Reference Range Interpretation Comments Sodium POC (test code = 140 mmol/L 136-145 35536524) Potassium POC (test code 4.0 mmol/L 3.5-5.1 = 35576761) Chloride POC (test code 104 mmol/L 98-107 = 43538634) TCO2 POC (test code = 28 mmol/L 21-32 Physic shea Notified 05853828) Urea Nitrogen POC (test 19 mg/dL 7-18 H code = 53417916) Glucose POC (test code = 79 mg/dL 74-106 18639700) Hemoglobin POC (test 13.9 g/dL 12-16 code = 27054390) Hematocrit POC (test 41.0 % 37.0-47.0 code = 45817844) Lab Interpretation (test Abnormal code = 06722-1) [facility] CREATININE POC docked [id number] 11:49:51 Test Item Value Reference Range Interpretation Comments Creatinine POC (test 1.0 mg/dL 0.6-1.3 Physici an Notified code = 19630696) eGFR (test code = 98 See_Comment [Automate d message] 87864660) The system [employer] h generated this result transmit abdelrahman reference range : >=90 mL/min/1.7 3 m2. The reference r annemarie was not used to interpret this result as normal/abnormal . eGFR If Am (test 114 See_Comment [A utomated message] code = 63865756) The system which generated this result transmit abdelrahman reference range : >=90 mL/min/1.7 3 m2. The reference r annemarie was not used to interpret this result as normal/abnormal . Lab Interpretation (test Normal code = 40920-9) [facility] [id number] 06:41:00 Test Item Value Reference Range Interpretation Comments Urine culture (test SEE COMMENT Bacteriu pilo screen code = 0392359) negative. [facility]2022-09-15 06:41:00 Test Item Value Reference Range Interpretation Comments Urine culture (test SEE COMMENT Bacteriu pilo screen code = 0525721) negative. [facility]2022-09-15 06:41:00 Test Item Value Reference Range Interpretation Comments Urine culture (test SEE COMMENT Bacteriu pilo screen code = 8566059) negative. [facility]2022-09-15 06:41:00 Test Item Value Reference Range Interpretation Comments Urine culture (test SEE COMMENT Bacteriu pilo screen code = 0682155) negative. [facility] [id number] 06:41:00 Test Item Value Reference Range Interpretation Comments Urine culture (test SEE COMMENT Bacteriu pilo screen code = 4175823) negative. [facility] ED Preliminary Interpretation - Not an [id number] 02:35:02 Test Item Value Reference Range Interpretation Comments LISA (test code = LISA) Dio Boswell DO 01/16/2022 11:06 [facility] Preliminary Interpretation - Not an OrderPerformed by: Dio Boswell DOAuthorized by: Dio Boswell DO ECG reviewed by ED Physician in the absence of a machine inker: yes Previous ECG: Previous ECG: UnavailableInterpretat ion: Interpretation: abnormal Rate: ECG rate: 60 ECG rate assessment: normal Rhythm: Rhythm: sinus rhythm Ectopy: Ectopy: none QRS: QRS axis: Normal QRS intervals: NormalConduction: Conduction: abnormal Abnormal conduction: incomplete RBBB ST segments: ST segments: NormalT waves: T waves: normal Lab Interpretation Abnormal (test code = 61027-3) [facility] ED Preliminary Interpretation - Not an [id number] 02:35:02 Test Item Value Reference Range Interpretation Comments LISA (test code = LISA) Dio Boswell DO 01/16/2022 11:06 [facility] Preliminary Interpretation - Not an OrderPerformed by: Dio Boswell DOAuthorized by: Dio Boswell DO ECG reviewed by ED Physician in the absence of a machine inker: yes Previous ECG: Previous ECG: UnavailableInterpretat ion: Interpretation: abnormal Rate: ECG rate: 60 ECG rate assessment: normal Rhythm: Rhythm: sinus rhythm Ectopy: Ectopy: none QRS: QRS axis: Normal QRS intervals: NormalConduction: Conduction: abnormal Abnormal conduction: incomplete RBBB ST segments: ST segments: NormalT waves: T waves: normal Lab Interpretation Abnormal (test code = 49853-2) [facility] ED Preliminary Interpretation - Not an [id number] 02:35:02 Test Item Value Reference Range Interpretation Comments LISA (test code = LISA) Dio Boswell DO 01/16/2022 11:06 [facility] Preliminary Interpretation - Not an OrderPerformed by: Dio Boswell DOAuthorized by: Dio Boswell DO ECG reviewed by ED Physician in the absence of a machine inker: yes Previous ECG: Previous ECG: UnavailableInterpretat ion: Interpretation: abnormal Rate: ECG rate: 60 ECG rate assessment: normal Rhythm: Rhythm: sinus rhythm Ectopy: Ectopy: none QRS: QRS axis: Normal QRS intervals: NormalConduction: Conduction: abnormal Abnormal conduction: incomplete RBBB ST segments: ST segments: NormalT waves: T waves: normal Lab Interpretation Abnormal (test code = 27934-9) [facility] Preliminary Interpretation - Not an [id number] 02:35:02 Test Item Value Reference Range Interpretation Comments LISA (test code = LISA) Dio Boswell DO 01/16/2022 11:06 [facility] Preliminary Interpretation - Not an OrderPerformed by: Dio Boswell DOAuthorized by: Dio Boswell DO ECG reviewed by ED Physician in the absence of a machine inker: yes Previous ECG: Previous ECG: UnavailableInterpretat ion: Interpretation: abnormal Rate: ECG rate: 60 ECG rate assessment: normal Rhythm: Rhythm: sinus rhythm Ectopy: Ectopy: none QRS: QRS axis: Normal QRS intervals: NormalConduction: Conduction: abnormal Abnormal conduction: incomplete RBBB ST segments: ST segments: NormalT waves: T waves: normal Lab Interpretation Abnormal (test code = 99126-5) [facility] ED Preliminary Interpretation - Not an [id number] 02:35:02 Test Item Value Reference Range Interpretation Comments LISA (test code = LISA) Dio Boswell DO 01/16/2022 11:06 [facility] Preliminary Interpretation - Not an OrderPerformed by: Dio Boswell DOAuthorized by: Dio Boswell DO ECG reviewed by ED Physician in the absence of a machine inker: yes Previous ECG: Previous ECG: UnavailableInterpretat ion: Interpretation: abnormal Rate: ECG rate: 60 ECG rate assessment: normal Rhythm: Rhythm: sinus rhythm Ectopy: Ectopy: none QRS: QRS axis: Normal QRS intervals: NormalConduction: Conduction: abnormal Abnormal conduction: incomplete RBBB ST segments: ST segments: NormalT waves: T waves: normal Lab Interpretation Abnormal (test code = 42343-0) Demetrius SantosARS-CoV-2 (COVID-19) RNA [Presence] in Respiratory specimen by PORTIA with probe [id number] 00:36:01 Test Item Value Reference Range Interpretation Comments SARS-CoV-2 (COVID-19) RNA [Presence] Detected in Respiratory specimen by PORTIA with probe detection (test code = 43653-0) Whether patient is employed in a Unknown healthcare setting (test code = 91879-8) Whether the patient has symptoms Unknown related to condition of interest (test code = 40947-8) Whether the patient was hospitalized Unknown for condition of interest (test code = 56855-3) Whether the patient was admitted to Unknown intensive care unit (ICU) for condition of interest (test code = 12992-8) Whether patient resides in a Unknown congregate care setting (test code = 59999-8) status (test code = Unknown 18819-1) Date and time of symptom onset (test Unknown code = 93381-6) [place] Lead [id number] 11:30:2212 LEAD EKG FOR [facility] Test Date: 7614-39-35Ynb Name: SABAS MADERA Department: 5520Patient ID: [id number] Room: Gender: M 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 Sales Agent: [id number]: 1990 Requested By: INOCENCIA COBURN Order Number: [id number] Joyce MD: Ayush Saunders MeasurementsIntervals Gleason Rate:72 P: 67PR: 141 QRS: 70QRSD: 110 T: 29QT: 397 QTc: 422 Interpretive StatementsSINUS RHYTHMINCOMPLETE RIGHT BUNDLE BRANCH BLOCK [90+ ms QRS DURATION, TERMINAL R INV1/V2,40+ ms S IN I/aVL/V4/V5/V6]POSSIBLE LATERAL MYOCARDIAL INFARCTION , PROBABLY OLD [30 ms Q WAVE INI/aVL/V5/V6]Electronically Signed 01-14-2022 12:12:05 CDT by Ayush Valadezarris Byabwy21 Lead [id number] 11:30:2212 LEAD EKG FOR [facility] Test Date: 8842-53-80Oqv Name: SABAS MADERA [facility] ent: 5520Patient ID: [id number] Room: Gender: M Inside Sales Agent: [id number]: 1990 Requested By: INOCENCIA COBURN Order Number: [id number] Reading MD: Ayush Saunders MeasurementsIntervals Gleason Rate: 72 P: 67PR: 141 QRS: 70QRSD: 110 T: 29QT: 397 QTc: 422 Interpretive StatementsSINUS RHYTHMINCOMPLETE RIGHT BUNDLE BRANCH BLOCK [90+ ms QRS DURATION, TERMINAL R INV1/V2,40+ ms S IN I/aVL/V4/V5/V6]POSSIBLE LATERAL MYOCARDIAL INFARCTION , PROBABLY OLD [30 ms Q WAVE INI/aVL/V5/V6]Electronically Signed On 01-14-2022 12:12:05 CDT [place]ush [place] [address] Lead [id number] 11:30:2212 LEAD EKG FOR [facility] Test Date: 0705-84-22Iop Name: SABAS [facility] Department: 5520Patient ID: [id number] Room: Gender: M Inside Sales Agent: [id number]: 1990 Requested By: INOCENCIA COBURN Order Number: [id number] Reading MD: Ayush Saunders MeasurementsIntervals Gleason Rate: 72 P: 67PR: 141 QRS: 70QRSD: 110 T: 29QT: 397 QTc: 422 Interpretive StatementsSINUS RHYTHMINCOMPLETE RIGHT BUNDLE BRANCH BLOCK [90+ ms QRS DURATION, TERMINAL R INV1/V2,40+ ms S IN I/aVL/V4/V5/V6]POSSIBLE LATERAL MYOCARDIAL INFARCTION , PROBABLY OLD [30 ms Q WAVE INI/aVL/V5/V6]Electronically Signed On 01-14-2022 12:12:05 CDT by [place]ush [place] [address] Lead [id number] 11:30:2212 LEAD EKG FOR [facility] Test Date: 0378-55-60Vek Name: [facility] Department: 5520Patient ID: [id number] Room: Gender: M Inside Sales Agent: [id number]: 1990 Requested By: INOCENCIA COBURN Order Number: [id number] Reading MD: Ayush Saunders MeasurementsIntervals Gleason Rate: 72 P: 67PR: 141 QRS: 70QRSD: 110 T: 29QT: 397 QTc: 422 Interpretive StatementsSINUS RHYTHMINCOMPLETE RIGHT BUNDLE BRANCH BLOCK [90+ ms QRS DURATION, TERMINAL R INV1/V2,40+ ms S IN I/aVL/V4/V5/V6]POSSIBLE LATERAL MYOCARDIAL INFARCTION , PROBABLY OLD [30 ms Q WAVE INI/aVL/V5/V6]Electronically SignedOn 01-14-2022 12:12:05 CDT by [facility] Lead [id number] 11:30:2212 LEAD EKG FOR [facility] Test Date: 3449-51-27Ulv Name: [facility] Department: 5520Patient ID: [id number] Room: Gender: M Inside Sales Agent: [id number]: 1990 Requested By: INOCENCIA COBURN Order Number: [id number] Reading MD: Ayush Saunders MeasurementsIntervals Gleason Rate: 72 P: 67PR: 141 QRS: 70QRSD: 110 T: 29QT: 397 QTc: 422 Interpretive StatementsSINUS RHYTHMINCOMPLETE RIGHT BUNDLE BRANCH BLOCK [90+ ms QRS DURATION, TERMINAL R INV1/V2,40+ ms S IN I/aVL/V4/V5/V6]POSSIBLE LATERAL MYOCARDIAL INFARCTION , PROBABLY OLD [30 ms Q WAVE INI/aVL/V5/V6]Electronically Signed On 01-14-2022 12:12:05 CDT by [facility]Cor[facility], COVID19 [id number] 00:45:00 Test Item Value Reference Range Interpretation Comments Coronavirus PCR, For use under Emergency COVID19 Rapid (test Use Authorization (EUA) code = SARSCOV2) only. Coronavirus PCR, Reference Range: COVID19 Rapid (test Negative code = PCNSVGG46.1) SARS-CoV-2 PCR Result: Positive by RT-PCR A [...] = NRBCP) 0 % UA, Urinalysis Rflx Cult/Emecf0008-85-61 00:45:00 Test Item Value Reference Range Interpretation Comments Color,Urine (test code = UCOL) Dark Yellow Yellow A Clarity,Urine (test code = Clear Clear UCLAR) Ph, Urine (test code = UPH) 5.0 5.0-9.0 N Specific [place],Urine (test >= 1.030 1.005-1.030 N code = [...] Negative mg/dL Negative code = ULEU) Urine Yhzxsafhlsl2407-91-35 00:45:00 Test Item Value Reference Range Interpretation Comments RBC,Urine (test code = URBCUF) None Seen /HPF 0-2 WBC,Urine (test code = UWBCUF) 0-5 /HPF 0-5 Epithelial Cell,Urine (test None Seen /HPF 0-5 code = UECUF) Casts,Urine (test code = 0-5 /LPF None Seen UCASTUF) Bacteria,Urine (test code = None Seen /hpf None Seen UBACTUF) Manual Differential, [id number] 00:45:00 Test Item Value Reference Range Interpretation [...] code = Normal Morphology Normal RM) Drug Screen,Dbgan1546-04-69 00:45:00 Test Item Value Reference Range Interpretation [...] Urine (test code = UPROP) Comprehensive Metabolic Uzvkx7011-24-26 00:45:00 Test Item Value Reference Range Interpretation [...] 44 U/L 46-116 L = ALP) Ethanol Ebbgg3595-14-01 00:45:00 Test Item Value Reference Range Interpretation Comments Ethanol (test code < 3 mg/dL The pharm acological = ETOH) response to blo od alcohol levels mayvary from individual to i ndividual. The fatal xiomara ntrationhas been reported t o be >400mg/dL. CHEM [id number] 04:57:00 Test Item Value Reference Range Interpretation Comments Glucose Lvl (test code = Glucose Lvl) 141 70-99 [facility] CenterSkillPagesCHEM PSNKU4696-56-78 04:57:00 Test Item Value Reference Range Interpretation Comments BUN (test code = BUN) 7 7-22 [facility] CenterCondoDomain [id number] 04:57:00 Test Item Value Reference Range Interpretation Comments Creatinine Lvl (test code = Creatinine 1.10 0.50-1.40 Lvl) [facility] CenterCond[facility] [id number] 04:57:00 Test Item Value Reference Range Interpretation Comments Sodium Lvl (test code = Sodium Lvl) 138 135-145 [facility] [id number] 04:57:00 Test Item Value Reference Range Interpretation Comments Potassium Lvl (test code = Potassium 3.1 3.5-5.1 Lvl) [facility] [id number] 04:57:00 Test Item Value Reference Range Interpretation Comments Chloride Lvl (test code = Chloride Lvl) 106 95-109 [facility] [id number] 04:57:00 Test Item Value Reference Range Interpretation Comments CO2 (test code = CO2) 27 24-32 [facility] [id number] 04:57:00 Test Item Value Reference Range Interpretation Comments Calcium Lvl (test code = Calcium Lvl) 8.9 8.5-10.5 [facility] [id number] 04:57:00 Test Item Value Reference Range Interpretation Comments Albumin Lvl (test code = Albumin Lvl) 4.2 3.5-5.0 [facility] [id number] 04:57:00 Test Item Value Reference Range Interpretation Comments AGAP (test code = AGAP) 8.1 10.0-20.0 [facility] [id number] 04:57:00 Test Item Value Reference Range Interpretation Comments B/C Ratio (test code = B/C Ratio) 6 1 6-25 [facility] [id number] 04:57:00 Test Item Value Reference Range Interpretation Comments eGFR (test code = eGFR) 89 [facility] [id number] 04:57:00 Test Item Value Reference Range Interpretation Comments Total Protein (test code = Total 7.6 6.4-8.4 Protein) [facility] [id number] 04:57:00 Test Item Value Reference Range Interpretation Comments ALT (test code = ALT) 23 See_Comment [Auto mated message] The system which ge nerated this result transmit abdelrahman reference range : <=65. The reference range was not used to interpr et this result as gurpreet l/abnormal. [facility] [employer] [id number] 04:57:00 Test Item Value Reference Range Interpretation Comments AST (test code = AST) 16 See_Comment [Auto mated message] The system which ge nerated this result transmit abdelrahman reference range : <=37. The reference range was not used to interpr et this result as gurpreet l/abnormal. [facility] [employer] [id number] 04:57:00 Test Item Value Reference Range Interpretation Comments Alk Phos (test code = Alk Phos) 38 39-136 [facility] [employer] [id number] 04:57:00 Test Item Value Reference Range Interpretation Comments Bili Total (test code = Bili Total) 0.3 0.2-1.3 [facility] [employer] [id number] 04:57:00 Test Item Value Reference Range Interpretation Comments Globulin (test code = Globulin) 3.4 2.7-4.2 [facility] [employer] [id number] 04:57:00 Test Item Value Reference Range Interpretation Comments A/G Ratio (test code = A/G Ratio) 1.2 1 0.7-1.6 [facility] CenterUkccymnYDXPDVYFVB5990-01-34 04:57:00 Test Item Value Reference Range Interpretation Comments WBC (test code = WBC) 9.2 3.7-10.4 [facility] CenterNqdinfaMXJDYFVHIE2732-50-96 04:57:00 Test Item Value Reference Range Interpretation Comments RBC (test code = RBC) 4.56 4.70-6.10 [facility] GplwxnzTHOKBFMJEY2296-51-13 04:57:00 Test Item Value Reference Range Interpretation Comments Hgb (test code = Hgb) 13.3 14.0-18.0 [facility]anoHugjmxpWDGWZKQLUA9467-74-60 04:57:00 Test Item Value Reference Range Interpretation Comments Hct (test code = Hct) 39.7 42.0-54.0 [place] 410000-08-16 04:57:00 Test Item Value Reference Range Interpretation Comments MCV (test code = MCV) 87.0 80.0-94.0 [facility] PlanoOzakkasQIYAHQABWT2908-58-01 04:57:00 Test Item Value Reference Range Interpretation Comments MCH (test code = MCH) 29.2 pg 27.0-31.0 [facility] PlanoXxdodwqCJKEYQIAIY9524-42-68 04:57:00 Test Item Value Reference Range Interpretation Comments MCHC (test code = MCHC) 33.6 32.0-36.0 [place] 410000-08-16 04:57:00 Test Item Value Reference Range Interpretation Comments RDW (test code = RDW) 13.1 11.5-14.5 [place] 410000-08-16 04:57:00 Test Item Value Reference Range Interpretation Comments Platelet (test code = Platelet) 162 133-450 [facility] PlanoOvgnqmaTRSQYMZFUS8778-59-35 04:57:00 Test Item Value Reference Range Interpretation Comments MPV (test code = MPV) 9.8 7.4-10.4 [place] [address]-08-16 04:57:00 Test Item Value Reference Range Interpretation Comments Segs (test code = Segs) 79.0 45.0-75.0 [place] 410000-08-16 04:57:00 Test Item Value Reference Range Interpretation Comments Lymphocytes (test code = Lymphocytes) 13.7 20.0-40.0 [place] 410000-08-16 04:57:00 Test Item Value Reference Range Interpretation Comments Monocytes (test code = Monocytes) 6.5 2.0-12.0 [place] [address]-08-16 04:57:00 Test Item Value Reference Range Interpretation Comments Eosinophils (test code = 0.5 See_Comment [A utomated message] The Eosinophils) system which ge nerated this result tra nsmitted reference range : <=4.0. The reference r annemarie was not used to int erpret this result as normal/abnormal . [facility]GohnjaqUFPIZGMVCM3763-89-34 04:57:00 Test Item Value Reference Range Interpretation Comments Basophils (test code = 0.3 See_Comment [Aut omated message] The Basophils) system which ge nerated this result tra nsmitted reference range : <=1.0. The reference r annemarie was not used to int erpret this result as normal/abnormal . [facility] HospitalFrbiaelZDSTLDGXGH6032-17-09 04:57:00 Test Item Value Reference Range Interpretation Comments Neutrophils # (test code = Neutrophils 7.3 1.5-8.1 #) [facility] CenterLncrplnTOXXCCPKPI6335-96-75 04:57:00 Test Item Value Reference Range Interpretation Comments Lymphocytes # (test code = Lymphocytes 1.3 1.0-5.5 #) [facility] HospitalHnqwfzaOQURFSEFKB7224-90-10 04:57:00 Test Item Value Reference Range Interpretation Comments Monocytes # (test code 0.6 See_Comment [Aut omated message] The = Monocytes #) system which generated this result tra nsmitted reference range : <=0.8. The reference r annemarie was not used to int erpret this result as normal/abnormal . [facility] CenterFvfygbzMFMXBNEPXP2893-98-39 04:57:00 Test Item Value Reference Range Interpretation Comments Ethanol Lvl (test code = Ethanol Lvl) no gt [facility] CenterKnkafikGWETQPBLUI0341-56-95 04:57:00 Test Item Value Reference Range Interpretation Comments Etoh (%) (test code = Etoh (%)) no gt [facility] CenterKjjwluiKNRVPNWFGV4053-94-26 04:57:00 Test Item Value Reference Range Interpretation Comments Acetaminoph Lvl (test code (12/14/19 11:57 PM) 10-20 = Acetaminoph Lvl) [facility] CenterCaxrfvkUGIWJSGQZP6693-97-18 04:57:00 Test Item Value Reference Range Interpretation Comments Salicylate Lvl (test 3.4 See_Comment [Autom ated message] The code = Salicylate Lvl) syste m which generated this result tra nsmitted reference range : <=30.0. The reference r annemarie was not used to int erpret this result as normal/abnormal . [facility] CenterannCHEM WFLIG5220-60-14 04:57:00 Test Item Value Reference Range Interpretation Comments Glucose Lvl (test code = Glucose Lvl) 141 70-99 [facility] CenterSkillPagesATRIUM HEALTH CABARRUSYTIBY8611-39-73 04:57:00 Test Item Value Reference Range Interpretation Comments BUN (test code = BUN) 7 7-22 [facility]2020-08-16 04:57:00 Test Item Value Reference Range Interpretation Comments Creatinine Lvl (test code = Creatinine 1.10 0.50-1.40 Lvl) [facility] CenterSkillPagesATRIUM HEALTH CABARRUSDIJWG8593-23-82 04:57:00 Test Item Value Reference Range Interpretation Comments Sodium Lvl (test code = Sodium Lvl) 138 135-145 [facility] CenterSkillPagesMELAN[place] [address]IBCKW9135-08-17 04:57:00 Test Item Value Reference Range Interpretation Comments Potassium Lvl (test code = Potassium 3.1 3.5-5.1 Lvl) [facility] CenterSkillPagesATRIUM HEALTH CABARRUSLLAQM0250-79-63 04:57:00 Test Item Value Reference Range Interpretation Comments Chloride Lvl (test code = Chloride Lvl) 106 95-109 [facility] CenterSkillPagesATRIUM HEALTH CABARRUSIWPJK2136-34-44 04:57:00 Test Item Value Reference Range Interpretation Comments CO2 (test code = CO2) 27 24-32 [place] 935870-08-16 04:57:00 Test Item Value Reference Range Interpretation Comments Calcium Lvl (test code = Calcium Lvl) 8.9 8.5-10.5 [facility] CenterSkillPagesATRIUM HEALTH CABARRUSDEZSG6517-29-35 04:57:00 Test Item Value Reference Range Interpretation Comments Albumin Lvl (test code = Albumin Lvl) 4.2 3.5-5.0 [facility] CenterSkillPagesATRIUM HEALTH CABARRUSUKOIE2453-52-44 04:57:00 Test Item Value Reference Range Interpretation Comments AGAP (test code = AGAP) 8.1 10.0-20.0 [facility] CenterSkillPagesMELANIE [place] [address]PCAKK2478-13-43 04:57:00 Test Item Value Reference Range Interpretation Comments B/C Ratio (test code = B/C Ratio) 6 1 6-25 [place] 935870-08-16 04:57:00 Test Item Value Reference Range Interpretation Comments eGFR (test code = eGFR) 89 [facility]2020-08-16 04:57:00 Test Item Value Reference Range Interpretation Comments Total Protein (test code = Total 7.6 6.4-8.4 Protein) [place] 935870-08-16 04:57:00 Test Item Value Reference Range Interpretation Comments ALT (test code = ALT) 23 See_Comment [Auto mated message] The system which ge nerated this result transmit abdelrahman reference range : <=65. The reference range was not used to interpr et this result as gurpreet l/abnormal. [facility] [employer] [id number] 04:57:00 Test Item Value Reference Range Interpretation Comments AST (test code = AST) 16 See_Comment [Auto mated message] The system which ge nerated this result transmit abdelrahman reference range : <=37. The reference range was not used to interpr et this result as gurpreet l/abnormal. [facility] [employer] DQCOD1911-33-34 04:57:00 Test Item Value Reference Range Interpretation Comments Alk Phos (test code = Alk Phos) 38 39-136 [facility] [employer] [id number] 04:57:00 Test Item Value Reference Range Interpretation Comments Bili Total (test code = Bili Total) 0.3 0.2-1.3 [facility] [employer] MUZML6411-97-43 04:57:00 Test Item Value Reference Range Interpretation Comments Globulin (test code = Globulin) 3.4 2.7-4.2 [facility] [employer] [id number] 04:57:00 Test Item Value Reference Range Interpretation Comments A/G Ratio (test code = A/G Ratio) 1.2 1 0.7-1.6 [facility] CenterMxcxtzdRHKOBJOHIS6904-47-96 04:57:00 Test Item Value Reference Range Interpretation Comments WBC (test code = WBC) 9.2 3.7-10.4 [facility] CenterPjibkwwJAOHIMFFDP3883-43-07 04:57:00 Test Item Value Reference Range Interpretation Comments RBC (test code = RBC) 4.56 4.70-6.10 [facility] WpwtnhsGBXDPLQONQ1180-63-01 04:57:00 Test Item Value Reference Range Interpretation Comments Hgb (test code = Hgb) 13.3 14.0-18.0 [facility] YozirvwTFJXTTOOXA8926-95-30 04:57:00 Test Item Value Reference Range Interpretation Comments Hct (test code = Hct) 39.7 42.0-54.0 [facility] WcmrpviFJUZPVILDS2285-42-38 04:57:00 Test Item Value Reference Range Interpretation Comments MCV (test code = MCV) 87.0 80.0-94.0 [facility] PlanoBdyvsxzWMOSEOUDBH6278-45-46 04:57:00 Test Item Value Reference Range Interpretation Comments MCH (test code = MCH) 29.2 pg 27.0-31.0 [facility] PlanoVrwnusqMIIWWMSMMY4845-16-43 04:57:00 Test Item Value Reference Range Interpretation Comments MCHC (test code = MCHC) 33.6 32.0-36.0 [facility] PlanoEqfzdmqDWSXWEXFGI4662-96-32 04:57:00 Test Item Value Reference Range Interpretation Comments RDW (test code = RDW) 13.1 11.5-14.5 [facility] PlanoDwqrojqGMBJGPHLOO4388-12-04 04:57:00 Test Item Value Reference Range Interpretation Comments Platelet (test code = Platelet) 162 133-450 [facility] PlanoKuiuegwVJYCHXOCVZ3245-38-40 04:57:00 Test Item Value Reference Range Interpretation Comments MPV (test code = MPV) 9.8 7.4-10.4 [facility] PlanoOiwdfgmDZXIJGVXEM2469-59-47 04:57:00 Test Item Value Reference Range Interpretation Comments Segs (test code = Segs) 79.0 45.0-75.0 [facility] PlanoTxoqomrTVDMQYKDQP7847-84-35 04:57:00 Test Item Value Reference Range Interpretation Comments Lymphocytes (test code = Lymphocytes) 13.7 20.0-40.0 [facility] PlanoPfnjzgzLHVSUDKRCZ0967-81-65 04:57:00 Test Item Value Reference Range Interpretation Comments Monocytes (test code = Monocytes) 6.5 2.0-12.0 [facility] PlanoMwusygsWNZTDUXWWO3659-78-36 04:57:00 Test Item Value Reference Range Interpretation Comments Eosinophils (test code = 0.5 See_Comment [A utomated message] The Eosinophils) system which ge nerated this result tra nsmitted reference range : <=4.0. The reference r annemarie was not used to int erpret this result as normal/abnormal . [facility] PlanoJwgjojeFIXOYXUVMB9586-10-55 04:57:00 Test Item Value Reference Range Interpretation Comments Basophils (test code = 0.3 See_Comment [Aut omated message] The Basophils) system which ge nerated this result tra nsmitted reference range : <=1.0. The reference r annemarie was not used to int erpret this result as normal/abnormal . [place] [address]-08-16 04:57:00 Test Item Value Reference Range Interpretation Comments Neutrophils # (test code = Neutrophils 7.3 1.5-8.1 #) [facility] PlanoOddzxzxBPZJYSJXTD7049-82-44 04:57:00 Test Item Value Reference Range Interpretation Comments Lymphocytes # (test code = Lymphocytes 1.3 1.0-5.5 #) [facility] PlanoRdmidupMHUVOZRVCY0026-43-83 04:57:00 Test Item Value Reference Range Interpretation Comments Monocytes # (test code 0.6 See_Comment [Aut omated message] The = Monocytes #) system which generated this result tra nsmitted reference range : <=0.8. The reference r annemarie was not used to int erpret this result as normal/abnormal . [facility] HospitalLuhlfdoBVXBJPAWWC3628-40-18 04:57:00 Test Item Value Reference Range Interpretation Comments Ethanol Lvl (test code = Ethanol Lvl) no gt [facility] StationElmfkhwBUSPMGANRX2564-96-89 04:57:00 Test Item Value Reference Range Interpretation Comments Etoh (%) (test code = Etoh (%)) no gt [facility] StationBhqwiybNDVKOFHTZK1987-12-78 04:57:00 Test Item Value Reference Range Interpretation Comments Acetaminoph Lvl (test code (12/14/19 11:57 PM) 10-20 = Acetaminoph Lvl) [facility] StationWljyixpLHTPNNNCRQ5761-11-60 04:57:00 Test Item Value Reference Range Interpretation Comments Salicylate Lvl (test 3.4 See_Comment [Autom ated message] The code = Salicylate Lvl) syste m which generated this result tra nsmitted reference range : <=30.0. The reference r annemarie was not used to int erpret this result as normal/abnormal . [facility] CenterCondoDomain WTXKX5010-84-97 04:57:00 Test Item Value Reference Range Interpretation Comments Glucose Lvl (test code = Glucose Lvl) 141 70-99 [facility] CenterCond[facility] GEJZF3555-20-27 04:57:00 Test Item Value Reference Range Interpretation Comments BUN (test code = BUN) 7 7-22 [facility] CenterCond[facility] RJHAR0791-60-79 04:57:00 Test Item Value Reference Range Interpretation Comments Creatinine Lvl (test code = Creatinine 1.10 0.50-1.40 Lvl) [facility] CenterSkillPagesATRIUM HEALTH CABARRUSZHXEH5158-44-99 04:57:00 Test Item Value Reference Range Interpretation Comments Sodium Lvl (test code = Sodium Lvl) 138 135-145 [facility] CenterSkillPagesMELAN[place] [address]KDAUV2221-57-05 04:57:00 Test Item Value Reference Range Interpretation Comments Potassium Lvl (test code = Potassium 3.1 3.5-5.1 Lvl) [facility] CenterCond[facility] [id number] 04:57:00 Test Item Value Reference Range Interpretation Comments Chloride Lvl (test code = Chloride Lvl) 106 95-109 [facility] CenterCond[facility] DIOWL4645-75-59 04:57:00 Test Item Value Reference Range Interpretation Comments CO2 (test code = CO2) 27 24-32 [facility] CenterCond[facility] EJASP6647-76-09 04:57:00 Test Item Value Reference Range Interpretation Comments Calcium Lvl (test code = Calcium Lvl) 8.9 8.5-10.5 [facility] CenterCond[facility] IBPWF7010-61-20 04:57:00 Test Item Value Reference Range Interpretation Comments Albumin Lvl (test code = Albumin Lvl) 4.2 3.5-5.0 [facility] [id number] 04:57:00 Test Item Value Reference Range Interpretation Comments AGAP (test code = AGAP) 8.1 10.0-20.0 [facility] [id number] 04:57:00 Test Item Value Reference Range Interpretation Comments B/C Ratio (test code = B/C Ratio) 6 1 6-25 [facility] [id number] 04:57:00 Test Item Value Reference Range Interpretation Comments eGFR (test code = eGFR) 89 [facility] [id number] 04:57:00 Test Item Value Reference Range Interpretation Comments Total Protein (test code = Total 7.6 6.4-8.4 Protein) [facility] [id number] 04:57:00 Test Item Value Reference Range Interpretation Comments ALT (test code = ALT) 23 See_Comment [Auto mated message] The system which ge nerated this result transmit abdelrahman reference range : <=65. The reference range was not used to interpr et this result as gurpreet l/abnormal. [facility] [employer] [id number] 04:57:00 Test Item Value Reference Range Interpretation Comments AST (test code = AST) 16 See_Comment [Auto mated message] The system which ge nerated this result transmit abdelrahman reference range : <=37. The reference range was not used to interpr et this result as gurpreet l/abnormal. [facility] [id number] 04:57:00 Test Item Value Reference Range Interpretation Comments Alk Phos (test code = Alk Phos) 38 39-136 [facility] [id number] 04:57:00 Test Item Value Reference Range Interpretation Comments Bili Total (test code = Bili Total) 0.3 0.2-1.3 [facility] [id number] 04:57:00 Test Item Value Reference Range Interpretation Comments Globulin (test code = Globulin) 3.4 2.7-4.2 [facility] [id number] 04:57:00 Test Item Value Reference Range Interpretation Comments A/G Ratio (test code = A/G Ratio) 1.2 1 0.7-1.6 [facility]QhspldoUUCNOPUQMG6595-42-33 04:57:00 Test Item Value Reference Range Interpretation Comments WBC (test code = WBC) 9.2 3.7-10.4 [facility] CenterDbwcfxaKOTFAZMYUA6557-67-24 04:57:00 Test Item Value Reference Range Interpretation Comments RBC (test code = RBC) 4.56 4.70-6.10 [facility] HospitalVaoqjyzSIPMSBKIJR0135-89-92 04:57:00 Test Item Value Reference Range Interpretation Comments Hgb (test code = Hgb) 13.3 14.0-18.0 [facility] HospitalBwfrapiBPXPCKDOAN5265-46-11 04:57:00 Test Item Value Reference Range Interpretation Comments Hct (test code = Hct) 39.7 42.0-54.0 [facility] CenterSacgrdmVCQGPUVVSF5966-14-06 04:57:00 Test Item Value Reference Range Interpretation Comments MCV (test code = MCV) 87.0 80.0-94.0 [facility] HospitalHqjjrozSPJZNAOHIU2079-69-98 04:57:00 Test Item Value Reference Range Interpretation Comments MCH (test code = MCH) 29.2 pg 27.0-31.0 [facility] CenterXdhxkctTHVNCUPRDW5320-17-69 04:57:00 Test Item Value Reference Range Interpretation Comments MCHC (test code = MCHC) 33.6 32.0-36.0 [place] [address]-08-16 04:57:00 Test Item Value Reference Range Interpretation Comments RDW (test code = RDW) 13.1 11.5-14.5 [place] 410000-08-16 04:57:00 Test Item Value Reference Range Interpretation Comments Platelet (test code = Platelet) 162 133-450 [facility]anoHkcbiodHRZQUOIWJO5215-13-29 04:57:00 Test Item Value Reference Range Interpretation Comments MPV (test code = MPV) 9.8 7.4-10.4 [place] 410000-08-16 04:57:00 Test Item Value Reference Range Interpretation Comments Segs (test code = Segs) 79.0 45.0-75.0 [place] 410000-08-16 04:57:00 Test Item Value Reference Range Interpretation Comments Lymphocytes (test code = Lymphocytes) 13.7 20.0-40.0 [facility]anoOtywwytDHDWLLOIAK4012-04-45 04:57:00 Test Item Value Reference Range Interpretation Comments Monocytes (test code = Monocytes) 6.5 2.0-12.0 [facility]anoKeguxufOLXWVEYNZJ0259-34-51 04:57:00 Test Item Value Reference Range Interpretation Comments Eosinophils (test code = 0.5 See_Comment [A utomated message] The Eosinophils) system which ge nerated this result tra nsmitted reference range : <=4.0. The reference r annemarie was not used to int erpret this result as normal/abnormal . [facility]anoQdbnvcyMLJYRDEPPO2879-19-02 04:57:00 Test Item Value Reference Range Interpretation Comments Basophils (test code = 0.3 See_Comment [Aut omated message] The Basophils) system which ge nerated this result tra nsmitted reference range : <=1.0. The reference r annemarie was not used to int erpret this result as normal/abnormal . [facility]anoOhxxbnmYFKVSADLKJ4484-45-12 04:57:00 Test Item Value Reference Range Interpretation Comments Neutrophils # (test code = Neutrophils 7.3 1.5-8.1 #) [facility] PlanoPdgzansGDYSDILYQR5810-27-69 04:57:00 Test Item Value Reference Range Interpretation Comments Lymphocytes # (test code = Lymphocytes 1.3 1.0-5.5 #) [place] 410000-08-16 04:57:00 Test Item Value Reference Range Interpretation Comments Monocytes # (test code 0.6 See_Comment [Aut omated message] The = Monocytes #) system which generated this result tra nsmitted reference range : <=0.8. The reference r annemarie was not used to int erpret this result as normal/abnormal . [facility] CenterMwgtwoiVILYHNJHYQ4403-80-33 04:57:00 Test Item Value Reference Range Interpretation Comments Ethanol Lvl (test code = Ethanol Lvl) no gt [facility] CenterPrbihiuFBWACCEZQI2835-19-38 04:57:00 Test Item Value Reference Range Interpretation Comments Etoh (%) (test code = Etoh (%)) no gt [facility] CenterTfsnbzwDQMSMTZFIC5182-59-60 04:57:00 Test Item Value Reference Range Interpretation Comments Acetaminoph Lvl (test code (12/14/19 11:57 PM) 10-20 = Acetaminoph Lvl) [place] 30772020-08-16 04:57:00 Test Item Value Reference Range Interpretation Comments Salicylate Lvl (test 3.4 See_Comment [Autom ated message] The code = Salicylate Lvl) syste m which generated this result tra nsmitted reference range : <=30.0. The reference r annemarie was not used to int erpret this result as normal/abnormal . [facility] [employer] [id number] 04:57:00 Test Item Value Reference Range Interpretation Comments Glucose Lvl (test code = Glucose Lvl) 141 70-99 [facility] [employer] [id number] 04:57:00 Test Item Value Reference Range Interpretation Comments BUN (test code = BUN) 7 7-22 [facility] [id number] 04:57:00 Test Item Value Reference Range Interpretation Comments Creatinine Lvl (test code = Creatinine 1.10 0.50-1.40 Lvl) [facility] [id number] 04:57:00 Test Item Value Reference Range Interpretation Comments Sodium Lvl (test code = Sodium Lvl) 138 135-145 [facility] [employer] [id number] 04:57:00 Test Item Value Reference Range Interpretation Comments Potassium Lvl (test code = Potassium 3.1 3.5-5.1 Lvl) [facility] [employer] [id number] 04:57:00 Test Item Value Reference Range Interpretation Comments Chloride Lvl (test code = Chloride Lvl) 106 95-109 [facility] [id number] 04:57:00 Test Item Value Reference Range Interpretation Comments CO2 (test code = CO2) 27 24-32 [facility] [id number] 04:57:00 Test Item Value Reference Range Interpretation Comments Calcium Lvl (test code = Calcium Lvl) 8.9 8.5-10.5 [facility] [id number] 04:57:00 Test Item Value Reference Range Interpretation Comments Albumin Lvl (test code = Albumin Lvl) 4.2 3.5-5.0 [facility] [employer] [id number] 04:57:00 Test Item Value Reference Range Interpretation Comments AGAP (test code = AGAP) 8.1 10.0-20.0 [facility] [employer] [id number] 04:57:00 Test Item Value Reference Range Interpretation Comments B/C Ratio (test code = B/C Ratio) 6 1 6-25 [facility] [id number] 04:57:00 Test Item Value Reference Range Interpretation Comments eGFR (test code = eGFR) 89 [facility] [employer] [id number] 04:57:00 Test Item Value Reference Range Interpretation Comments Total Protein (test code = Total 7.6 6.4-8.4 Protein) [facility] [employer] [id number] 04:57:00 Test Item Value Reference Range Interpretation Comments ALT (test code = ALT) 23 See_Comment [Auto mated message] The system which ge nerated this result transmit abdelrahman reference range : <=65. The reference range was not used to interpr et this result as gurpreet l/abnormal. [facility] [employer] [id number] 04:57:00 Test Item Value Reference Range Interpretation Comments AST (test code = AST) 16 See_Comment [Auto mated message] The system which ge nerated this result transmit abdelrahman reference range : <=37. The reference range was not used to interpr et this result as gurpreet l/abnormal. [facility] [employer] [id number] 04:57:00 Test Item Value Reference Range Interpretation Comments Alk Phos (test code = Alk Phos) 38 39-136 [facility] [id number] 04:57:00 Test Item Value Reference Range Interpretation Comments Bili Total (test code = Bili Total) 0.3 0.2-1.3 [facility] [id number] 04:57:00 Test Item Value Reference Range Interpretation Comments Globulin (test code = Globulin) 3.4 2.7-4.2 [facility] [id number] 04:57:00 Test Item Value Reference Range Interpretation Comments A/G Ratio (test code = A/G Ratio) 1.2 1 0.7-1.6 [facility] HospitalRmirahdYYTSSHVQCR4643-29-48 04:57:00 Test Item Value Reference Range Interpretation Comments WBC (test code = WBC) 9.2 3.7-10.4 [facility] HospitalVevgjquDVGMGOLGVJ6180-27-45 04:57:00 Test Item Value Reference Range Interpretation Comments RBC (test code = RBC) 4.56 4.70-6.10 [facility] HospitalCgixtonEMPKRONYPG2639-69-34 04:57:00 Test Item Value Reference Range Interpretation Comments Hgb (test code = Hgb) 13.3 14.0-18.0 [facility] HospitalHgdbksnWSWFPXRLRT2486-10-71 04:57:00 Test Item Value Reference Range Interpretation Comments Hct (test code = Hct) 39.7 42.0-54.0 [facility] HospitalIzyempgWBQXHYQZPQ4575-85-79 04:57:00 Test Item Value Reference Range Interpretation Comments MCV (test code = MCV) 87.0 80.0-94.0 [facility] HospitalCncgmimGMUXPZUNST3555-24-57 04:57:00 Test Item Value Reference Range Interpretation Comments MCH (test code = MCH) 29.2 pg 27.0-31.0 [facility] HospitalMpxtrusNEPSWHXCOQ3499-14-05 04:57:00 Test Item Value Reference Range Interpretation Comments MCHC (test code = MCHC) 33.6 32.0-36.0 [facility] HospitalDaulqkiQCWIXXTCXT1177-28-75 04:57:00 Test Item Value Reference Range Interpretation Comments RDW (test code = RDW) 13.1 11.5-14.5 [facility] HospitalBfvoijsNYMQTFPEBA7569-09-52 04:57:00 Test Item Value Reference Range Interpretation Comments Platelet (test code = Platelet) 162 133-450 [facility] HospitalXgolwuxTGIPTVYMQF4776-21-19 04:57:00 Test Item Value Reference Range Interpretation Comments MPV (test code = MPV) 9.8 7.4-10.4 [facility]anoPlxhlgmFFBTNDWBZB2352-15-35 04:57:00 Test Item Value Reference Range Interpretation Comments Segs (test code = Segs) 79.0 45.0-75.0 [facility]anoNcsiyxrOJOTKUHZUL7288-61-90 04:57:00 Test Item Value Reference Range Interpretation Comments Lymphocytes (test code = Lymphocytes) 13.7 20.0-40.0 [facility] PlanoFxckbinEAUWMVXIGU0573-49-94 04:57:00 Test Item Value Reference Range Interpretation Comments Monocytes (test code = Monocytes) 6.5 2.0-12.0 [facility] PlanoPfetxctJRONNSWCSO0678-95-45 04:57:00 Test Item Value Reference Range Interpretation Comments Eosinophils (test code = 0.5 See_Comment [A utomated message] The Eosinophils) system which ge nerated this result tra nsmitted reference range : <=4.0. The reference r annemarie was not used to int erpret this result as normal/abnormal . [facility]anoVuswjxvVWPBDDBXTU0385-12-30 04:57:00 Test Item Value Reference Range Interpretation Comments Basophils (test code = 0.3 See_Comment [Aut omated message] The Basophils) system which ge nerated this result tra nsmitted reference range : <=1.0. The reference r annemarie was not used to int erpret this result as normal/abnormal . [facility] PlanoIbcjctoUABICHNNKG7226-27-87 04:57:00 Test Item Value Reference Range Interpretation Comments Neutrophils # (test code = Neutrophils 7.3 1.5-8.1 #) [facility] PlanoEszgipaGXTLYCYAIO3989-65-15 04:57:00 Test Item Value Reference Range Interpretation Comments Lymphocytes # (test code = Lymphocytes 1.3 1.0-5.5 #) [facility] PlanoOwizolpWLJAREGEAL3557-03-53 04:57:00 Test Item Value Reference Range Interpretation Comments Monocytes # (test code 0.6 See_Comment [Aut omated message] The = Monocytes #) system which generated this result tra nsmitted reference range : <=0.8. The reference r annemarie was not used to int erpret this result as normal/abnormal . [facility] HospitalQbsyyfpVYPNYLFITK4731-37-96 04:57:00 Test Item Value Reference Range Interpretation Comments Ethanol Lvl (test code = Ethanol Lvl) no gt [place] 30772020-08-16 04:57:00 Test Item Value Reference Range Interpretation Comments Etoh (%) (test code = Etoh (%)) no gt [place] 30772020-08-16 04:57:00 Test Item Value Reference Range Interpretation Comments Acetaminoph Lvl (test code (12/14/19 11:57 PM) 02-17 = Acetaminoph Lvl) [place] 318250-08-16 04:57:00 Test Item Value Reference Range Interpretation Comments Salicylate Lvl (test 3.4 See_Comment [Autom ated message] The code = Salicylate Lvl) syste m which generated this result tra nsmitted reference range : <=30.0. The reference r annemarie was not used to int erpret this result as normal/abnormal . [facility] [employer] [id number] 04:57:00 Test Item Value Reference Range Interpretation Comments Glucose Lvl (test code = Glucose Lvl) 141 70-99 [facility] [employer] [id number] 04:57:00 Test Item Value Reference Range Interpretation Comments BUN (test code = BUN) 7 7-22 [facility] [employer] [id number] 04:57:00 Test Item Value Reference Range Interpretation Comments Creatinine Lvl (test code = Creatinine 1.10 0.50-1.40 Lvl) [facility] [employer] [id number] 04:57:00 Test Item Value Reference Range Interpretation Comments Sodium Lvl (test code = Sodium Lvl) 138 135-145 [facility] [employer] [id number] 04:57:00 Test Item Value Reference Range Interpretation Comments Potassium Lvl (test code = Potassium 3.1 3.5-5.1 Lvl) [facility] [employer] [id number] 04:57:00 Test Item Value Reference Range Interpretation Comments Chloride Lvl (test code = Chloride Lvl) 106 95-109 [facility] [employer] [id number] 04:57:00 Test Item Value Reference Range Interpretation Comments CO2 (test code = CO2) 27 24-32 [facility] [id number] 04:57:00 Test Item Value Reference Range Interpretation Comments Calcium Lvl (test code = Calcium Lvl) 8.9 8.5-10.5 [facility] [employer] [id number] 04:57:00 Test Item Value Reference Range Interpretation Comments Albumin Lvl (test code = Albumin Lvl) 4.2 3.5-5.0 [facility] [employer] [id number] 04:57:00 Test Item Value Reference Range Interpretation Comments AGAP (test code = AGAP) 8.1 10.0-20.0 [facility] [employer] [id number] 04:57:00 Test Item Value Reference Range Interpretation Comments B/C Ratio (test code = B/C Ratio) 6 1 6-25 [facility] [employer] [id number] 04:57:00 Test Item Value Reference Range Interpretation Comments eGFR (test code = eGFR) 89 [facility] [id number] 04:57:00 Test Item Value Reference Range Interpretation Comments Total Protein (test code = Total 7.6 6.4-8.4 Protein) [facility] [employer] [id number] 04:57:00 Test Item Value Reference Range Interpretation Comments ALT (test code = ALT) 23 See_Comment [Auto mated message] The system which ge nerated this result transmit abdelrahman reference range : <=65. The reference range was not used to interpr et this result as gurpreet l/abnormal. [facility] [employer] [id number] 04:57:00 Test Item Value Reference Range Interpretation Comments AST (test code = AST) 16 See_Comment [Auto mated message] The system which ge nerated this result transmit abdelrahman reference range : <=37. The reference range was not used to interpr et this result as gurpreet l/abnormal. [facility] [employer] [id number] 04:57:00 Test Item Value Reference Range Interpretation Comments Alk Phos (test code = Alk Phos) 38 39-136 [facility] [employer] [id number] 04:57:00 Test Item Value Reference Range Interpretation Comments Bili Total (test code = Bili Total) 0.3 0.2-1.3 [facility] [employer] [id number] 04:57:00 Test Item Value Reference Range Interpretation Comments Globulin (test code = Globulin) 3.4 2.7-4.2 [facility]2020-08-16 04:57:00 Test Item Value Reference Range Interpretation Comments A/G Ratio (test code = A/G Ratio) 1.2 1 0.7-1.6 [place] 410000-08-16 04:57:00 Test Item Value Reference Range Interpretation Comments WBC (test code = WBC) 9.2 3.7-10.4 [facility]anoLcgwskgLESGCTOOZK1070-76-49 04:57:00 Test Item Value Reference Range Interpretation Comments RBC (test code = RBC) 4.56 4.70-6.10 [facility] PlanoWywjvonSZFAZNATEX7439-82-62 04:57:00 Test Item Value Reference Range Interpretation Comments Hgb (test code = Hgb) 13.3 14.0-18.0 [place] 410000-08-16 04:57:00 Test Item Value Reference Range Interpretation Comments Hct (test code = Hct) 39.7 42.0-54.0 [facility] PlanoSdkkgrdAQGICMGXQP1008-72-36 04:57:00 Test Item Value Reference Range Interpretation Comments MCV (test code = MCV) 87.0 80.0-94.0 [facility] PlanoKckexngGYNRTQAVXV9123-29-30 04:57:00 Test Item Value Reference Range Interpretation Comments MCH (test code = MCH) 29.2 pg 27.0-31.0 [facility] PlanoLgwphfjELVRAARVLU3046-39-24 04:57:00 Test Item Value Reference Range Interpretation Comments MCHC (test code = MCHC) 33.6 32.0-36.0 [facility] PlanoKyktutpQTGAVGOKZB1099-61-81 04:57:00 Test Item Value Reference Range Interpretation Comments RDW (test code = RDW) 13.1 11.5-14.5 [place] [address]-08-16 04:57:00 Test Item Value Reference Range Interpretation Comments Platelet (test code = Platelet) 162 133-450 [facility] PlanoXemmhezWWXNBNXGUO5829-37-52 04:57:00 Test Item Value Reference Range Interpretation Comments MPV (test code = MPV) 9.8 7.4-10.4 [place] 410000-08-16 04:57:00 Test Item Value Reference Range Interpretation Comments Segs (test code = Segs) 79.0 45.0-75.0 [facility] PlanoZtzpnlqCQXLNHIGIH4092-79-29 04:57:00 Test Item Value Reference Range Interpretation Comments Lymphocytes (test code = Lymphocytes) 13.7 20.0-40.0 [facility]MyxtmngMBTIZHHCEH3071-86-49 04:57:00 Test Item Value Reference Range Interpretation Comments Monocytes (test code = Monocytes) 6.5 2.0-12.0 [facility]anoVefrfbiXXRLQVNVVF0193-27-67 04:57:00 Test Item Value Reference Range Interpretation Comments Eosinophils (test code = 0.5 See_Comment [A utomated message] The Eosinophils) system which ge nerated this result tra nsmitted reference range : <=4.0. The reference r annemarie was not used to int erpret this result as normal/abnormal . [facility] PlanoKxhcfedYBQZTSXKDB0032-56-95 04:57:00 Test Item Value Reference Range Interpretation Comments Basophils (test code = 0.3 See_Comment [Aut omated message] The Basophils) system which ge nerated this result tra nsmitted reference range : <=1.0. The reference r annemarie was not used to int erpret this result as normal/abnormal . [facility] PlanoDspryrfBOPEMBTZTJ5523-81-36 04:57:00 Test Item Value Reference Range Interpretation Comments Neutrophils # (test code = Neutrophils 7.3 1.5-8.1 #) [facility] PlanoZobdzzyLQOVQRSVQB5982-47-39 04:57:00 Test Item Value Reference Range Interpretation Comments Lymphocytes # (test code = Lymphocytes 1.3 1.0-5.5 #) [facility] PlanoRckulyzXEWTORPRVJ1983-17-10 04:57:00 Test Item Value Reference Range Interpretation Comments Monocytes # (test code 0.6 See_Comment [Aut omated message] The = Monocytes #) system which generated this result tra nsmitted reference range : <=0.8. The reference r anneamrie was not used to int erpret this result as normal/abnormal . [facility] HospitalAkhsikqTLXOMHJJNE8243-20-38 04:57:00 Test Item Value Reference Range Interpretation Comments Ethanol Lvl (test code = Ethanol Lvl) no gt [facility] HospitalJhthhqnFVBBBGHZED8993-92-61 04:57:00 Test Item Value Reference Range Interpretation Comments Etoh (%) (test code = Etoh (%)) no gt [facility] StationVyxwczjTSWTLYUILL6720-89-91 04:57:00 Test Item Value Reference Range Interpretation Comments Acetaminoph Lvl (test code (12/14/19 11:57 PM) 10-20 = Acetaminoph Lvl) [facility] HospitalNuqldqlLVUBVWKFNU7360-70-34 04:57:00 Test Item Value Reference Range Interpretation Comments Salicylate Lvl (test 3.4 See_Comment [Autom ated message] The code = Salicylate Lvl) syste m which generated this result tra nsmitted reference range : <=30.0. The reference r annemarie was not used to int erpret this result as normal/abnormal . [facility] HospitalCARDIAC SLPMKNI1660-44-97 13:17:00 Test Item Value Reference Range Interpretation Comments Total CK (test code = Total CK) 815 12-191 [facility]piaMSFMIXTWIMYF8723-55-45 13:17:00 Test Item Value Reference Range Interpretation Comments AGAP (test code = AGAP) 14.8 10.0-20.0 [facility] HospitalKlqimldWCQGPGGNPOHD4391-68-81 13:17:00 Test Item Value Reference Range Interpretation Comments eGFR (test code = eGFR) 93 [facility] HospitalOmssvywVFBMBLZVHGRJ1759-48-58 13:17:00 Test Item Value Reference Range Interpretation Comments Creatinine Lvl (test code = Creatinine 1.07 0.50-1.40 Lvl) [facility] CenterXxcedvhNWTGPIMKGJBM9569-58-70 13:17:00 Test Item Value Reference Range Interpretation Comments Sodium Lvl (test code = Sodium Lvl) 135 135-145 [facility] CenterOgvoyowHYIUWIARETKO7552-15-37 13:17:00 Test Item Value Reference Range Interpretation Comments Potassium Lvl (test code = Potassium 3.8 3.5-5.1 Lvl) [facility] CenterWkxluqrHEIYBCAXMULD3127-82-56 13:17:00 Test Item Value Reference Range Interpretation Comments Calcium Lvl (test code = Calcium Lvl) 9.3 8.5-10.5 [facility] HospitalXzcxjbjSESXRYWRJLHX4518-75-61 13:17:00 Test Item Value Reference Range Interpretation Comments CO2 (test code = CO2) 23 24-32 [facility] HospitalElhobfpROCZEIKRPTUG8223-12-01 13:17:00 Test Item Value Reference Range Interpretation Comments Chloride Lvl (test code = Chloride Lvl) 101 95-109 [facility] HospitalOrkkekbRPKBPLFRZARE9117-37-28 13:17:00 Test Item Value Reference Range Interpretation Comments Glucose Lvl (test code = Glucose Lvl) 94 70-99 [facility] CenterGpwmungMBMXQONPMGBJ0475-27-04 13:17:00 Test Item Value Reference Range Interpretation Comments BUN (test code = BUN) 17 7-22 [facility]XyswbzcIMFIGSXUOM6678-56-31 13:17:00 Test Item Value Reference Range Interpretation Comments MCHC (test code = MCHC) 33.6 32.0-36.0 [facility]anoAtotkvpFYOXKHECUV2852-96-17 13:17:00 Test Item Value Reference Range Interpretation Comments RDW (test code = RDW) 14.7 11.5-14.5 [facility]anoDhcwknaIAALFPZOWH9843-94-94 13:17:00 Test Item Value Reference Range Interpretation Comments MCH (test code = MCH) 27.9 pg 27.0-31.0 [facility]anoBbjecsvNAQURHNGBR2798-47-25 13:17:00 Test Item Value Reference Range Interpretation Comments MCV (test code = MCV) 83.1 80.0-94.0 [facility]anoZnnxjxoJWUTLKECVI3821-88-06 13:17:00 Test Item Value Reference Range Interpretation Comments MPV (test code = MPV) 9.9 7.4-10.4 [facility]anoZstqjxrKCRAFTRVMU8908-38-53 13:17:00 Test Item Value Reference Range Interpretation Comments Platelet (test code = Platelet) 165 133-450 [facility]anoJbzdtlzJUYCBQYXZY5308-66-85 13:17:00 Test Item Value Reference Range Interpretation Comments RBC (test code = RBC) 4.63 4.70-6.10 [facility]anoRbtgxtpKWITMXIDAU8080-92-47 13:17:00 Test Item Value Reference Range Interpretation Comments Hgb (test code = Hgb) 12.9 14.0-18.0 [facility]anoUollhmkRXZDKHAWKE0583-94-89 13:17:00 Test Item Value Reference Range Interpretation Comments Hct (test code = Hct) 38.4 42.0-54.0 [facility]anoRtyvkyxHGPICXJBVM3276-04-04 13:17:00 Test Item Value Reference Range Interpretation Comments WBC (test code = WBC) 8.2 3.7-10.4 [facility]anoJkfdbieXYRDMXHCEB5198-85-71 13:17:00 Test Item Value Reference Range Interpretation Comments Monocytes # (test code 0.9 See_Comment [Aut omated message] The = Monocytes #) system which generated this result tra nsmitted reference range : <=0.8. The reference r annemarie was not used to int erpret this result as normal/abnormal . [facility]anoArblmzqAKFETCWAUY1173-21-65 13:17:00 Test Item Value Reference Range Interpretation Comments Eosinophils # (test code 0.1 See_Comment [A utomated message] The = Eosinophils #) system whic h generated this result tra nsmitted reference range : <=0.5. The reference r annemarie was not used to int erpret this result as normal/abnormal . [facility]anoGyozcofMXBLVNLQLG2266-90-35 13:17:00 Test Item Value Reference Range Interpretation Comments Lymphocytes # (test code = Lymphocytes 1.1 1.0-5.5 #) [facility]anoHaxvhdtLXPJGCBRYT1908-74-87 13:17:00 Test Item Value Reference Range Interpretation Comments Neutrophils # (test code = Neutrophils 6.1 1.5-8.1 #) [facility]anoOmfssszOGGMYPOTZB6635-33-77 13:17:00 Test Item Value Reference Range Interpretation Comments Monocytes (test code = Monocytes) 11.1 2.0-12.0 [facility]anoNsnjeddLLYLKTHLDZ8314-93-29 13:17:00 Test Item Value Reference Range Interpretation Comments Eosinophils (test code = 0.9 See_Comment [A utomated message] The Eosinophils) system which ge nerated this result tra nsmitted reference range : <=4.0. The reference r annemarie was not used to int erpret this result as normal/abnormal . [facility]anoOjlgqokNQYCEFZDWT4299-40-63 13:17:00 Test Item Value Reference Range Interpretation Comments Basophils (test code = 0.2 See_Comment [Aut omated message] The Basophils) system which ge nerated this result tra nsmitted reference range : <=1.0. The reference r annemarie was not used to int erpret this result as normal/abnormal . [facility]anoQdnicscHZHVTYJMBI6393-88-77 13:17:00 Test Item Value Reference Range Interpretation Comments Segs (test code = Segs) 74.9 45.0-75.0 [facility]anoRtwulujNFYNGWKKWU5643-12-89 13:17:00 Test Item Value Reference Range Interpretation Comments Lymphocytes (test code = Lymphocytes) 12.9 20.0-40.0 [facility] CenterVerlpvoXBSWJHEUCL1140-10-31 13:17:00 Test Item Value Reference Range Interpretation Comments Salicylate Lvl (test no gt See_Comment [Autom ated message] The code = Salicylate Lvl) syste m which generated this result tra nsmitted reference range : <=30.0. The reference r annemarie was not used to int erpret this result as normal/abnormal . [facility]OnydazsFRSSYTKJHG6854-31-00 13:17:00 Test Item Value Reference Range Interpretation Comments Acetaminoph Lvl (test code = 3 10-20 Acetaminoph Lvl) [facility] HospitalCARDIAC LGMLXAZ0181-27-25 13:17:00 Test Item Value Reference Range Interpretation Comments Total CK (test code = Total CK) 815 12-191 [facility] HospitalSxoiwuxEZLDBVKEGNZS5254-82-96 13:17:00 Test Item Value Reference Range Interpretation Comments AGAP (test code = AGAP) 14.8 10.0-20.0 [facility] HospitalMukmgwsMTLUZJGDGYTI5073-45-08 13:17:00 Test Item Value Reference Range Interpretation Comments eGFR (test code = eGFR) 93 [facility] HospitalOctabkcQDACTQBVGDJX4943-06-14 13:17:00 Test Item Value Reference Range Interpretation Comments Creatinine Lvl (test code = Creatinine 1.07 0.50-1.40 Lvl) [facility] HospitalSlzfxivBELFKWSSCFCI1796-55-66 13:17:00 Test Item Value Reference Range Interpretation Comments Sodium Lvl (test code = Sodium Lvl) 135 135-145 [facility] HospitalMqwaxquCQJZZRCVNSHP5996-38-61 13:17:00 Test Item Value Reference Range Interpretation Comments Potassium Lvl (test code = Potassium 3.8 3.5-5.1 Lvl) [facility] HospitalWgmqnfmIDDZIRUCATGO3384-86-96 13:17:00 Test Item Value Reference Range Interpretation Comments Calcium Lvl (test code = Calcium Lvl) 9.3 8.5-10.5 [facility] HospitalEcapvvvCISXYJRNRCAQ8525-55-80 13:17:00 Test Item Value Reference Range Interpretation Comments CO2 (test code = CO2) 23 24-32 [facility] HospitalNuykahyXSWGICXFWBMG7499-05-41 13:17:00 Test Item Value Reference Range Interpretation Comments Chloride Lvl (test code = Chloride Lvl) 101 95-109 [facility] HospitalSwctelzEUXVSPJATGQZ3888-37-67 13:17:00 Test Item Value Reference Range Interpretation Comments Glucose Lvl (test code = Glucose Lvl) 94 70-99 [facility] CenterXvtjzrxDKEYNXDBSXLB6325-04-42 13:17:00 Test Item Value Reference Range Interpretation Comments BUN (test code = BUN) 17 7-22 [facility] HospitalZfwnsczHROCKCPKTP7021-53-46 13:17:00 Test Item Value Reference Range Interpretation Comments MCHC (test code = MCHC) 33.6 32.0-36.0 [facility]anoUsjngciFVAIGWZWYB3448-43-76 13:17:00 Test Item Value Reference Range Interpretation Comments RDW (test code = RDW) 14.7 11.5-14.5 [facility] PlanoLsddramUNYDLYDTYE7786-37-36 13:17:00 Test Item Value Reference Range Interpretation Comments MCH (test code = MCH) 27.9 pg 27.0-31.0 [facility]anoCcrnqsrLVUVSNGWUC1287-56-57 13:17:00 Test Item Value Reference Range Interpretation Comments MCV (test code = MCV) 83.1 80.0-94.0 [facility]anoFdmyzexIZJIIHDZPB0682-10-61 13:17:00 Test Item Value Reference Range Interpretation Comments MPV (test code = MPV) 9.9 7.4-10.4 [facility]anoVpuuvzfIAEFZZKPIO8294-71-48 13:17:00 Test Item Value Reference Range Interpretation Comments Platelet (test code = Platelet) 165 133-450 [facility]anoPumbknpLWOQLCIIYW4752-28-15 13:17:00 Test Item Value Reference Range Interpretation Comments RBC (test code = RBC) 4.63 4.70-6.10 [facility]anoCkuflmsYXZKWUNKQD1187-14-90 13:17:00 Test Item Value Reference Range Interpretation Comments Hgb (test code = Hgb) 12.9 14.0-18.0 [facility]anoUrfupqyQIMTPQINOH9931-53-64 13:17:00 Test Item Value Reference Range Interpretation Comments Hct (test code = Hct) 38.4 42.0-54.0 [facility]anoRdejsnaGSZFBXJQYD4766-25-08 13:17:00 Test Item Value Reference Range Interpretation Comments WBC (test code = WBC) 8.2 3.7-10.4 [facility]anoNwdsvbaAWCMGTKVEM3380-51-66 13:17:00 Test Item Value Reference Range Interpretation Comments Monocytes # (test code 0.9 See_Comment [Aut omated message] The = Monocytes #) system which generated this result tra nsmitted reference range : <=0.8. The reference r annemarie was not used to int erpret this result as normal/abnormal . [facility]anoJrurkkzNAJYNHIISG2739-78-14 13:17:00 Test Item Value Reference Range Interpretation Comments Eosinophils # (test code 0.1 See_Comment [A utomated message] The = Eosinophils #) system whic h generated this result tra nsmitted reference range : <=0.5. The reference r annemarie was not used to int erpret this result as normal/abnormal . [facility]anoYfnegrhTCWMYVSUQM3444-43-71 13:17:00 Test Item Value Reference Range Interpretation Comments Lymphocytes # (test code = Lymphocytes 1.1 1.0-5.5 #) [facility]anoVltbkdjBTJNTXWSID2836-46-75 13:17:00 Test Item Value Reference Range Interpretation Comments Neutrophils # (test code = Neutrophils 6.1 1.5-8.1 #) [facility]anoDcwjbrzHLCGQMZSHO9254-19-22 13:17:00 Test Item Value Reference Range Interpretation Comments Monocytes (test code = Monocytes) 11.1 2.0-12.0 [facility]anoRunphfjYNWVDMDFQZ4011-86-96 13:17:00 Test Item Value Reference Range Interpretation Comments Eosinophils (test code = 0.9 See_Comment [A utomated message] The Eosinophils) system which ge nerated this result tra nsmitted reference range : <=4.0. The reference r annemarie was not used to int erpret this result as normal/abnormal . [facility]anoMtxqhxxOMEPPIYHBK4864-05-42 13:17:00 Test Item Value Reference Range Interpretation Comments Basophils (test code = 0.2 See_Comment [Aut omated message] The Basophils) system which ge nerated this result tra nsmitted reference range : <=1.0. The reference r annemarie was not used to int erpret this result as normal/abnormal . [facility]anoWghqszeLENPJGMWHG6920-72-55 13:17:00 Test Item Value Reference Range Interpretation Comments Segs (test code = Segs) 74.9 45.0-75.0 [facility] PlanoBrfrhtwWLORVCPXZA0223-71-19 13:17:00 Test Item Value Reference Range Interpretation Comments Lymphocytes (test code = Lymphocytes) 12.9 20.0-40.0 [facility] CenterUhpyqcbBYPDUMSJOG9402-84-99 13:17:00 Test Item Value Reference Range Interpretation Comments Salicylate Lvl (test no gt See_Comment [Autom ated message] The code = Salicylate Lvl) syste m which generated this result tra nsmitted reference range : <=30.0. The reference r annemarie was not used to int erpret this result as normal/abnormal . [facility] CenterLmxplpdNSOUIYUTRD0394-08-93 13:17:00 Test Item Value Reference Range Interpretation Comments Acetaminoph Lvl (test code = 3 10-20 Acetaminoph Lvl) [facility]CARD[facility]AC QJHFZJN1674-13-89 13:17:00 Test Item Value Reference Range Interpretation Comments Total CK (test code = Total CK) 815 12-191 [facility] HospitalBafqvldHAGYHURDVAMM7060-79-93 13:17:00 Test Item Value Reference Range Interpretation Comments AGAP (test code = AGAP) 14.8 10.0-20.0 [facility] HospitalAnzcmqyREZCWKKNAURT9500-39-32 13:17:00 Test Item Value Reference Range Interpretation Comments eGFR (test code = eGFR) 93 [facility] HospitalWhszmkeJDFEJNHXYFHC0882-45-86 13:17:00 Test Item Value Reference Range Interpretation Comments Creatinine Lvl (test code = Creatinine 1.07 0.50-1.40 Lvl) [facility] HospitalDnwdlxuRUOACPGUUELC6811-84-20 13:17:00 Test Item Value Reference Range Interpretation Comments Sodium Lvl (test code = Sodium Lvl) 135 135-145 [facility] HospitalKiyefquJRECHDDKPEPG1616-83-55 13:17:00 Test Item Value Reference Range Interpretation Comments Potassium Lvl (test code = Potassium 3.8 3.5-5.1 Lvl) [facility] HospitalYjwgxlfDVQECKTRXQPR1796-57-99 13:17:00 Test Item Value Reference Range Interpretation Comments Calcium Lvl (test code = Calcium Lvl) 9.3 8.5-10.5 [facility] HospitalIyuydwoGQAEVAVXBZAD0600-75-00 13:17:00 Test Item Value Reference Range Interpretation Comments CO2 (test code = CO2) 23 24-32 [facility] HospitalIetvjtiMQOJEMLYMPTH6489-19-44 13:17:00 Test Item Value Reference Range Interpretation Comments Chloride Lvl (test code = Chloride Lvl) 101 95-109 [facility] HospitalAtucdxkJBAEJTWPWUUX0988-27-87 13:17:00 Test Item Value Reference Range Interpretation Comments Glucose Lvl (test code = Glucose Lvl) 94 70-99 [facility] HospitalEqmhsvhYVPENMLNAFWL1649-78-15 13:17:00 Test Item Value Reference Range Interpretation Comments BUN (test code = BUN) 17 7-22 [facility]anoKmvpteaXKALGYWRER5294-47-26 13:17:00 Test Item Value Reference Range Interpretation Comments MCHC (test code = MCHC) 33.6 32.0-36.0 [facility]anoNrwyanfBFYGLZNYJY7024-38-83 13:17:00 Test Item Value Reference Range Interpretation Comments RDW (test code = RDW) 14.7 11.5-14.5 [facility]anoWtiwmnvRSENVBWXWH0728-41-45 13:17:00 Test Item Value Reference Range Interpretation Comments MCH (test code = MCH) 27.9 pg 27.0-31.0 [facility] PlanoYuyqupnFDLNVNPVNK6628-16-38 13:17:00 Test Item Value Reference Range Interpretation Comments MCV (test code = MCV) 83.1 80.0-94.0 [facility]anoCzhjpwgOHLDTRDNSY8120-05-40 13:17:00 Test Item Value Reference Range Interpretation Comments MPV (test code = MPV) 9.9 7.4-10.4 [facility] PlanoIeavhmrLWUTITHUSX2967-30-72 13:17:00 Test Item Value Reference Range Interpretation Comments Platelet (test code = Platelet) 165 133-450 [facility] PlanoQnowujiFPZTHZETWM4396-38-37 13:17:00 Test Item Value Reference Range Interpretation Comments RBC (test code = RBC) 4.63 4.70-6.10 [facility]anoXfheqzhLOHOTMHFKU9833-37-17 13:17:00 Test Item Value Reference Range Interpretation Comments Hgb (test code = Hgb) 12.9 14.0-18.0 [facility] PlanoHfohrzmSVNDPCGPMH5150-98-86 13:17:00 Test Item Value Reference Range Interpretation Comments Hct (test code = Hct) 38.4 42.0-54.0 [facility]anoKgrcorxSUBCYLFATO9121-30-22 13:17:00 Test Item Value Reference Range Interpretation Comments WBC (test code = WBC) 8.2 3.7-10.4 [facility] PlanoUlngbiwCMNLXDGARO5444-13-82 13:17:00 Test Item Value Reference Range Interpretation Comments Monocytes # (test code 0.9 See_Comment [Aut omated message] The = Monocytes #) system which generated this result tra nsmitted reference range : <=0.8. The reference r annemarie was not used to int erpret this result as normal/abnormal . [facility] PlanoDndruenSEREMPBNIA8243-88-92 13:17:00 Test Item Value Reference Range Interpretation Comments Eosinophils # (test code 0.1 See_Comment [A utomated message] The = Eosinophils #) system wh h generated this result tra nsmitted reference range : <=0.5. The reference r annemarie was not used to int erpret this result as normal/abnormal . [facility] PlanoWsllexoZUKWWHRARM7079-51-78 13:17:00 Test Item Value Reference Range Interpretation Comments Lymphocytes # (test code = Lymphocytes 1.1 1.0-5.5 #) [facility] PlanoHlexpzjPSVPKOTOTN5776-25-82 13:17:00 Test Item Value Reference Range Interpretation Comments Neutrophils # (test code = Neutrophils 6.1 1.5-8.1 #) [facility] PlanoDguiekaTWKGUDYQFL6830-13-53 13:17:00 Test Item Value Reference Range Interpretation Comments Monocytes (test code = Monocytes) 11.1 2.0-12.0 [facility]anoEinyjieTYQTDYZOGY2037-03-12 13:17:00 Test Item Value Reference Range Interpretation Comments Eosinophils (test code = 0.9 See_Comment [A utomated message] The Eosinophils) system which ge nerated this result tra nsmitted reference range : <=4.0. The reference r annemarie was not used to int erpret this result as normal/abnormal . [facility] PlanoCheqxncUFDVYUGTRW5475-11-40 13:17:00 Test Item Value Reference Range Interpretation Comments Basophils (test code = 0.2 See_Comment [Aut omated message] The Basophils) system which ge nerated this result tra nsmitted reference range : <=1.0. The reference r annemarie was not used to int erpret this result as normal/abnormal . [facility]anoGycdcsvHZRMCKKZNS0413-27-95 13:17:00 Test Item Value Reference Range Interpretation Comments Segs (test code = Segs) 74.9 45.0-75.0 [facility]anoWnxvexiILBWSIIACM6262-00-78 13:17:00 Test Item Value Reference Range Interpretation Comments Lymphocytes (test code = Lymphocytes) 12.9 20.0-40.0 [facility]TyreaowKCEHCUHJLH6199-30-24 13:17:00 Test Item Value Reference Range Interpretation Comments Salicylate Lvl (test no gt See_Comment [Autom ated message] The code = Salicylate Lvl) syste m which generated this result tra nsmitted reference range : <=30.0. The reference r annemarie was not used to int erpret this result as normal/abnormal . [facility] CenterNnnrrgwRODNZRRVSC2146-32-93 13:17:00 Test Item Value Reference Range Interpretation Comments Acetaminoph Lvl (test code = 3 10-20 Acetaminoph Lvl) [facility]CARD[facility] QAEDXYG6218-26-15 13:17:00 Test Item Value Reference Range Interpretation Comments Total CK (test code = Total CK) 815 12-191 [facility] HospitalMqdnbpiOMRSSOQZZWEF9983-28-89 13:17:00 Test Item Value Reference Range Interpretation Comments AGAP (test code = AGAP) 14.8 10.0-20.0 [facility] HospitalMzwkdonRSKXMVRTEURD8108-53-56 13:17:00 Test Item Value Reference Range Interpretation Comments eGFR (test code = eGFR) 93 [facility] HospitalWxczlzzKVSWHXZLTCQG1839-34-10 13:17:00 Test Item Value Reference Range Interpretation Comments Creatinine Lvl (test code = Creatinine 1.07 0.50-1.40 Lvl) [facility] HospitalSmxixpaMZBXJBMKQOXI8305-86-54 13:17:00 Test Item Value Reference Range Interpretation Comments Sodium Lvl (test code = Sodium Lvl) 135 135-145 [facility] HospitalOdkctzoSICGMZAQYOKY4250-57-88 13:17:00 Test Item Value Reference Range Interpretation Comments Potassium Lvl (test code = Potassium 3.8 3.5-5.1 Lvl) [facility] HospitalHipddiaBLVNYEXYOCWZ9720-72-50 13:17:00 Test Item Value Reference Range Interpretation Comments Calcium Lvl (test code = Calcium Lvl) 9.3 8.5-10.5 [facility] HospitalYbklavqDWQEAHJREIJM1882-77-90 13:17:00 Test Item Value Reference Range Interpretation Comments CO2 (test code = CO2) 23 24-32 [facility] HospitalOpxculdOSHKCBHVVHHQ3231-49-15 13:17:00 Test Item Value Reference Range Interpretation Comments Chloride Lvl (test code = Chloride Lvl) 101 95-109 [facility] HospitalWakktntNOUPJUBAONHB3920-05-03 13:17:00 Test Item Value Reference Range Interpretation Comments Glucose Lvl (test code = Glucose Lvl) 94 70-99 [facility] HospitalWbgtaoxLGXEZHSLBTCE4158-94-67 13:17:00 Test Item Value Reference Range Interpretation Comments BUN (test code = BUN) 17 7-22 [facility]anoVhlxmlwGSOSMSXNCF4547-36-02 13:17:00 Test Item Value Reference Range Interpretation Comments MCHC (test code = MCHC) 33.6 32.0-36.0 [facility] PlanoLjwiedpKGBEDOZKST7152-21-14 13:17:00 Test Item Value Reference Range Interpretation Comments RDW (test code = RDW) 14.7 11.5-14.5 [facility]anoOlgrtrmCMEHJCJUWD7140-47-41 13:17:00 Test Item Value Reference Range Interpretation Comments MCH (test code = MCH) 27.9 pg 27.0-31.0 [facility] PlanoXxsessaEMYVPCPORW8514-17-20 13:17:00 Test Item Value Reference Range Interpretation Comments MCV (test code = MCV) 83.1 80.0-94.0 [facility]anoQaipfvnYNSBVUCCAQ5803-30-26 13:17:00 Test Item Value Reference Range Interpretation Comments MPV (test code = MPV) 9.9 7.4-10.4 [facility]anoAdwlzjvJVLORIABWR4369-24-41 13:17:00 Test Item Value Reference Range Interpretation Comments Platelet (test code = Platelet) 165 133-450 [facility] PlanoGfjehrcNZWYKLYIGT4335-91-47 13:17:00 Test Item Value Reference Range Interpretation Comments RBC (test code = RBC) 4.63 4.70-6.10 [facility] PlanoOtiiihlFHDQSMPVQD4694-39-66 13:17:00 Test Item Value Reference Range Interpretation Comments Hgb (test code = Hgb) 12.9 14.0-18.0 [facility] PlanoJagyuehSDKYMIGFJP1860-91-92 13:17:00 Test Item Value Reference Range Interpretation Comments Hct (test code = Hct) 38.4 42.0-54.0 [facility] PlanoBuzvkkuQUYSVLVMYE8343-09-94 13:17:00 Test Item Value Reference Range Interpretation Comments WBC (test code = WBC) 8.2 3.7-10.4 [facility]anoOjsnclpTRXGMCFBEN6055-03-92 13:17:00 Test Item Value Reference Range Interpretation Comments Monocytes # (test code 0.9 See_Comment [Aut omated message] The = Monocytes #) system which generated this result tra nsmitted reference range : <=0.8. The reference r annemarie was not used to int erpret this result as normal/abnormal . [facility] PlanoXjznjmnLJLKESTHFB5285-59-09 13:17:00 Test Item Value Reference Range Interpretation Comments Eosinophils # (test code 0.1 See_Comment [A utomated message] The = Eosinophils #) system whic h generated this result tra nsmitted reference range : <=0.5. The reference r annemarie was not used to int erpret this result as normal/abnormal . [facility]anoSpjqnuqSMMQZILANP3051-86-84 13:17:00 Test Item Value Reference Range Interpretation Comments Lymphocytes # (test code = Lymphocytes 1.1 1.0-5.5 #) [facility] PlanoVmcbaefUDUCSDMHKT0271-23-26 13:17:00 Test Item Value Reference Range Interpretation Comments Neutrophils # (test code = Neutrophils 6.1 1.5-8.1 #) [facility] PlanoTcfbwaaUNZEPBNEWZ9132-62-63 13:17:00 Test Item Value Reference Range Interpretation Comments Monocytes (test code = Monocytes) 11.1 2.0-12.0 [facility]anoEiskufxGLCLXTKHWV2309-96-92 13:17:00 Test Item Value Reference Range Interpretation Comments Eosinophils (test code = 0.9 See_Comment [A utomated message] The Eosinophils) system which ge nerated this result tra nsmitted reference range : <=4.0. The reference r annemarie was not used to int erpret this result as normal/abnormal . [facility]anoZuxsadbTTQCMKBMHI4943-64-46 13:17:00 Test Item Value Reference Range Interpretation Comments Basophils (test code = 0.2 See_Comment [Aut omated message] The Basophils) system which ge nerated this result tra nsmitted reference range : <=1.0. The reference r annemarie was not used to int erpret this result as normal/abnormal . [facility]anoQlpssqvPJGYVEXZCD9734-15-89 13:17:00 Test Item Value Reference Range Interpretation Comments Segs (test code = Segs) 74.9 45.0-75.0 [facility]anoEzvkzhoSOZGPALGFS1919-57-58 13:17:00 Test Item Value Reference Range Interpretation Comments Lymphocytes (test code = Lymphocytes) 12.9 20.0-40.0 [facility] CenterVnznuhwKXLNOZUPRE5407-79-10 13:17:00 Test Item Value Reference Range Interpretation Comments Salicylate Lvl (test no gt See_Comment [Autom ated message] The code = Salicylate Lvl) syste m which generated this result tra nsmitted reference range : <=30.0. The reference r annemarie was not used to int erpret this result as normal/abnormal . [facility] StationFzyvxdsFSWOZNHNGC9253-19-78 13:17:00 Test Item Value Reference Range Interpretation Comments Acetaminoph Lvl (test code = 3 10-20 Acetaminoph Lvl) [facility] GZESSBD9022-19-24 13:17:00 Test Item Value Reference Range Interpretation Comments Total CK (test code = Total CK) 815 12-191 [facility] HospitalRhloiblWIBSKYMBMCHS2519-36-52 13:17:00 Test Item Value Reference Range Interpretation Comments AGAP (test code = AGAP) 14.8 10.0-20.0 [facility] HospitalCaivtikXMEIRXEWUZIV3451-51-31 13:17:00 Test Item Value Reference Range Interpretation Comments eGFR (test code = eGFR) 93 [facility] HospitalKajtyilLLFBALBKBOZU5671-39-23 13:17:00 Test Item Value Reference Range Interpretation Comments Creatinine Lvl (test code = Creatinine 1.07 0.50-1.40 Lvl) [facility] HospitalLhczjdnFZVFJBINICXX3465-98-30 13:17:00 Test Item Value Reference Range Interpretation Comments Sodium Lvl (test code = Sodium Lvl) 135 135-145 [facility] HospitalVetdjjwCHVEODOPRDSI1494-04-60 13:17:00 Test Item Value Reference Range Interpretation Comments Potassium Lvl (test code = Potassium 3.8 3.5-5.1 Lvl) [facility] HospitalQxzwemzOYLIPETVXQEX6905-74-02 13:17:00 Test Item Value Reference Range Interpretation Comments Calcium Lvl (test code = Calcium Lvl) 9.3 8.5-10.5 [facility] HospitalHjaorevRQCTZELNPFQJ9750-74-65 13:17:00 Test Item Value Reference Range Interpretation Comments CO2 (test code = CO2) 23 24-32 [facility] HospitalMayvbkdLBGUWLEHBOES4158-03-05 13:17:00 Test Item Value Reference Range Interpretation Comments Chloride Lvl (test code = Chloride Lvl) 101 95-109 [facility] HospitalBqvkoxkZYGPSMGXKGYI1557-91-57 13:17:00 Test Item Value Reference Range Interpretation Comments Glucose Lvl (test code = Glucose Lvl) 94 70-99 [facility] HospitalUxbmteqILODYXYVXOWA1496-20-90 13:17:00 Test Item Value Reference Range Interpretation Comments BUN (test code = BUN) 17 7-22 [facility]anoVqfksnxBEBAZKAFAN9041-69-00 13:17:00 Test Item Value Reference Range Interpretation Comments MCHC (test code = MCHC) 33.6 32.0-36.0 [facility]anoJcvjgvkHIVDLLLFMT6318-42-46 13:17:00 Test Item Value Reference Range Interpretation Comments RDW (test code = RDW) 14.7 11.5-14.5 [facility]anoWafsdqbHTMABLHNCV4020-58-24 13:17:00 Test Item Value Reference Range Interpretation Comments MCH (test code = MCH) 27.9 pg 27.0-31.0 [facility]anoBfwnkiaGWHLPDCAUF8954-63-49 13:17:00 Test Item Value Reference Range Interpretation Comments MCV (test code = MCV) 83.1 80.0-94.0 [facility]anoQeneadpSNQCPSENCT0184-13-58 13:17:00 Test Item Value Reference Range Interpretation Comments MPV (test code = MPV) 9.9 7.4-10.4 [facility]anoKqnttiaHGIFGORAYJ9556-54-86 13:17:00 Test Item Value Reference Range Interpretation Comments Platelet (test code = Platelet) 165 133-450 [facility]anoYnmgcpkCLIDLXVPIA7448-05-43 13:17:00 Test Item Value Reference Range Interpretation Comments RBC (test code = RBC) 4.63 4.70-6.10 [facility]anoYcscfviUZJKCGQSZI6038-82-33 13:17:00 Test Item Value Reference Range Interpretation Comments Hgb (test code = Hgb) 12.9 14.0-18.0 [facility] PlanoUlyrarfMCQUSMORHS3626-19-20 13:17:00 Test Item Value Reference Range Interpretation Comments Hct (test code = Hct) 38.4 42.0-54.0 [facility]anoBmfnurfMKBKVTDYWD2829-86-23 13:17:00 Test Item Value Reference Range Interpretation Comments WBC (test code = WBC) 8.2 3.7-10.4 [facility]anoKmsnnvzRLZMVFZSLW6980-98-68 13:17:00 Test Item Value Reference Range Interpretation Comments Monocytes # (test code 0.9 See_Comment [Aut omated message] The = Monocytes #) system which generated this result tra nsmitted reference range : <=0.8. The reference r annemarie was not used to int erpret this result as normal/abnormal . [facility]anoEzaefrtZRSNHOGITR6555-73-75 13:17:00 Test Item Value Reference Range Interpretation Comments Eosinophils # (test code 0.1 See_Comment [A utomated message] The = Eosinophils #) system whic h generated this result tra nsmitted reference range : <=0.5. The reference r annemarie was not used to int erpret this result as normal/abnormal . [facility]anoDuzvhqhYNPNXHFLDR1473-08-01 13:17:00 Test Item Value Reference Range Interpretation Comments Lymphocytes # (test code = Lymphocytes 1.1 1.0-5.5 #) [facility]anoChgtuceJVEGOXAZQQ1836-33-50 13:17:00 Test Item Value Reference Range Interpretation Comments Neutrophils # (test code = Neutrophils 6.1 1.5-8.1 #) [facility]anoMbogmtoRXZRWGVDMD2111-50-15 13:17:00 Test Item Value Reference Range Interpretation Comments Monocytes (test code = Monocytes) 11.1 2.0-12.0 [facility]anoCoqlwxmXQRZJSSVIY8625-40-48 13:17:00 Test Item Value Reference Range Interpretation Comments Eosinophils (test code = 0.9 See_Comment [A utomated message] The Eosinophils) system which ge nerated this result tra nsmitted reference range : <=4.0. The reference r annemarie was not used to int erpret this result as normal/abnormal . [facility]anoXaqxascMNDQIZNIUM3628-90-20 13:17:00 Test Item Value Reference Range Interpretation Comments Basophils (test code = 0.2 See_Comment [Aut omated message] The Basophils) system which ge nerated this result tra nsmitted reference range : <=1.0. The reference r annemarie was not used to int erpret this result as normal/abnormal . [facility]anoWgzueagHXRXVACRSN7769-35-54 13:17:00 Test Item Value Reference Range Interpretation Comments Segs (test code = Segs) 74.9 45.0-75.0 [facility]anoSgyimrjURQSOIOOXP0043-05-79 13:17:00 Test Item Value Reference Range Interpretation Comments Lymphocytes (test code = Lymphocytes) 12.9 20.0-40.0 [facility] StationYsukxmhDQEYYMWDYA0418-75-66 13:17:00 Test Item Value Reference Range Interpretation Comments Salicylate Lvl (test no gt See_Comment [Autom ated message] The code = Salicylate Lvl) syste m which generated this result tra nsmitted reference range : <=30.0. The reference r annemarie was not used to int erpret this result as normal/abnormal . [facility] StationQxnezwbTPTGTNGQGK0213-32-09 13:17:00 Test Item Value Reference Range Interpretation Comments Acetaminoph Lvl (test code = 3 10-20 Acetaminoph Lvl) [facility]CARDIAC VWQQEPX3152-45-77 10:11:00 Test Item Value Reference Range Interpretation Comments Troponin-I (test code no gt See_Comment [Auto mated message] The = Troponin-I) system which g enerated this result transmit abdelrahman reference range : <=0.40. The reference r annemarie was not used to interpr et this result as gurpreet l/abnormal. [facility] CenterSkillPagesCHEM SEBQY6762-73-39 10:11:00 Test Item Value Reference Range Interpretation Comments Phosphorus (test code = Phosphorus) 3.7 2.5-4.5 [facility] CenterSkillPagesCHEM KOAJS7289-11-94 10:11:00 Test Item Value Reference Range Interpretation Comments Magnesium Lvl (test code = Magnesium 2.1 1.8-2.4 Lvl) [facility]ZlrvnofZIYSCZXZOEAS7375-60-56 10:11:00 Test Item Value Reference Range Interpretation Comments AGAP (test code = AGAP) 11.0 10.0-20.0 [facility] CenterKdcjdcnWTBVJUGVKAUB5132-61-20 10:11:00 Test Item Value Reference Range Interpretation Comments Creatinine Lvl (test code = Creatinine 0.90 0.50-1.40 Lvl) [facility] CenterWycqjkxUBWQUPKNSTRH0213-25-07 10:11:00 Test Item Value Reference Range Interpretation Comments eGFR (test code = eGFR) 114 [facility] CenterNozvivrBCOCPUWFLDNI2798-09-06 10:11:00 Test Item Value Reference Range Interpretation Comments Calcium Lvl (test code = Calcium Lvl) 8.2 8.5-10.5 [facility] CenterGmrpzxmVLCYUEHNSDSA4428-18-80 10:11:00 Test Item Value Reference Range Interpretation Comments CO2 (test code = CO2) 25 24-32 [facility] HospitalZaicjqyJDENRVKEWMYZ7401-36-07 10:11:00 Test Item Value Reference Range Interpretation Comments Chloride Lvl (test code = Chloride Lvl) 108 95-109 [facility] HospitalJyumwefPHBLFZZCSQSU4978-97-99 10:11:00 Test Item Value Reference Range Interpretation Comments Potassium Lvl (test code = Potassium 4.0 3.5-5.1 Lvl) [facility] HospitalMqfgfpyFNCQAAOZTPGQ7503-58-14 10:11:00 Test Item Value Reference Range Interpretation Comments Sodium Lvl (test code = Sodium Lvl) 140 135-145 [facility] HospitalOpnsqosFUFWYCADXVKF8732-85-58 10:11:00 Test Item Value Reference Range Interpretation Comments BUN (test code = BUN) 11 7-22 [facility] HospitalWlqxnoaNNDNFCPOTUHH1800-46-18 10:11:00 Test Item Value Reference Range Interpretation Comments Glucose Lvl (test code = Glucose Lvl) 85 70-99 [facility]anoPijjqhaRSKAZMTFCO7904-89-23 10:11:00 Test Item Value Reference Range Interpretation Comments MCH (test code = MCH) 27.9 pg 27.0-31.0 [facility]anoMaqrrewUOHNIJVVPY5709-53-44 10:11:00 Test Item Value Reference Range Interpretation Comments MCHC (test code = MCHC) 33.5 32.0-36.0 [facility]anoYpzxnsmWLEYMWUVVY5488-95-98 10:11:00 Test Item Value Reference Range Interpretation Comments Hct (test code = Hct) 36.7 42.0-54.0 [facility]anoQivbizpAJEMYRUIAB2504-71-86 10:11:00 Test Item Value Reference Range Interpretation Comments MCV (test code = MCV) 83.1 80.0-94.0 [facility]anoFckqajfPXEFEZNBPK8161-92-17 10:11:00 Test Item Value Reference Range Interpretation Comments RBC (test code = RBC) 4.42 4.70-6.10 [facility]anoWlldqlzHWQQDJVSKH7642-34-47 10:11:00 Test Item Value Reference Range Interpretation Comments Hgb (test code = Hgb) 12.3 14.0-18.0 [facility] PlanoNtcieloOPDNBFKTOF6535-10-06 10:11:00 Test Item Value Reference Range Interpretation Comments WBC (test code = WBC) 8.5 3.7-10.4 [facility]anoJwthbqnVNOIGMLAGV0352-63-91 10:11:00 Test Item Value Reference Range Interpretation Comments MPV (test code = MPV) 9.5 7.4-10.4 [facility] PlanoZlyxotzWFPECAEEHO2706-84-74 10:11:00 Test Item Value Reference Range Interpretation Comments RDW (test code = RDW) 14.4 11.5-14.5 [facility]anoJazbttxQNCTYXHDOZ7639-02-56 10:11:00 Test Item Value Reference Range Interpretation Comments Platelet (test code = Platelet) 164 133-450 [facility] PlanoDzkcjsuHYTWMDOZHL1055-59-88 10:11:00 Test Item Value Reference Range Interpretation Comments Lymphocytes # (test code = Lymphocytes 1.2 1.0-5.5 #) [facility] PlanoLaauesmFQHDDAQCIK2919-99-63 10:11:00 Test Item Value Reference Range Interpretation Comments Monocytes # (test code 0.6 See_Comment [Aut omated message] The = Monocytes #) system which generated this result tra nsmitted reference range : <=0.8. The reference r annemarie was not used to int erpret this result as normal/abnormal . [facility] PlanoNqazttySUDBGLUIDA8202-26-75 10:11:00 Test Item Value Reference Range Interpretation Comments Eosinophils # (test code 0.2 See_Comment [A utomated message] The = Eosinophils #) system whic h generated this result tra nsmitted reference range : <=0.5. The reference r annemarie was not used to int erpret this result as normal/abnormal . [facility]anoQiumbosCOLCFQETGD0464-44-75 10:11:00 Test Item Value Reference Range Interpretation Comments Basophils # (test code 0.0 See_Comment [Aut omated message] The = Basophils #) system which generated this result tra nsmitted reference range : <=0.2. The reference r annemarie was not used to int erpret this result as normal/abnormal . [facility] PlanoHuqeuucHERIVNDOGR3057-60-58 10:11:00 Test Item Value Reference Range Interpretation Comments Eosinophils (test code = 2.3 See_Comment [A utomated message] The Eosinophils) system which ge nerated this result tra nsmitted reference range : <=4.0. The reference r annemarie was not used to int erpret this result as normal/abnormal . [facility]anoGlogbhpZIICBZJATF8734-69-74 10:11:00 Test Item Value Reference Range Interpretation Comments Basophils (test code = 0.3 See_Comment [Aut omated message] The Basophils) system which ge nerated this result tra nsmitted reference range : <=1.0. The reference r annemarie was not used to int erpret this result as normal/abnormal . [facility] HospitalVgywyywKBBKXIVEBG5375-49-52 10:11:00 Test Item Value Reference Range Interpretation Comments Neutrophils # (test code = Neutrophils 6.5 1.5-8.1 #) [facility] HospitalUaranifBMXENQDYSS2317-96-31 10:11:00 Test Item Value Reference Range Interpretation Comments Lymphocytes (test code = Lymphocytes) 14.5 20.0-40.0 [facility] HospitalLhdqkehJRHGTKZBNN2480-39-09 10:11:00 Test Item Value Reference Range Interpretation Comments Monocytes (test code = Monocytes) 6.7 2.0-12.0 [facility] HospitalSeuboszSCWENXKNJJ4754-07-41 10:11:00 Test Item Value Reference Range Interpretation Comments Segs (test code = Segs) 76.2 45.0-75.0 [facility] HospitalPARATHYROID KBQJPTO0599-84-41 10:11:00 Test Item Value Reference Range Interpretation Comments Ca Norm WB (test code = Ca Norm WB) 1.13 1.05-1.25 [facility] HospitalPARATHYROID QYWJJUQ9327-53-73 10:11:00 Test Item Value Reference Range Interpretation Comments Ca Ion WB (test code = Ca Ion WB) 1.17 1.05-1.25 [facility] HospitalCARDIAC FJVLIZB2932-43-50 10:11:00 Test Item Value Reference Range Interpretation Comments Troponin-I (test code no gt See_Comment [Auto mated message] The = Troponin-I) system which g enerated this result transmit abdelrahman reference range : <=0.40. The reference r annemarie was not used to interpr et this result as gurpreet l/abnormal. [facility] HospitalCHEM HFLFW9692-91-46 10:11:00 Test Item Value Reference Range Interpretation Comments Phosphorus (test code = Phosphorus) 3.7 2.5-4.5 [facility] HospitalCHEM OKBDZ5361-62-60 10:11:00 Test Item Value Reference Range Interpretation Comments Magnesium Lvl (test code = Magnesium 2.1 1.8-2.4 Lvl) [facility] HospitalJbndhmsYNXHPGPZWCGH7601-72-37 10:11:00 Test Item Value Reference Range Interpretation Comments AGAP (test code = AGAP) 11.0 10.0-20.0 [facility] HospitalBdkxetbUAOAJIGOAJXX9942-01-71 10:11:00 Test Item Value Reference Range Interpretation Comments Creatinine Lvl (test code = Creatinine 0.90 0.50-1.40 Lvl) [facility] HospitalOjbqbtuYMUFSZYRWJOF0058-67-54 10:11:00 Test Item Value Reference Range Interpretation Comments eGFR (test code = eGFR) 114 [facility] HospitalGcgfrodTLVKUTNMSGGC3816-13-05 10:11:00 Test Item Value Reference Range Interpretation Comments Calcium Lvl (test code = Calcium Lvl) 8.2 8.5-10.5 [facility] HospitalDpqhiybAAYYGZNAEPTV1644-40-89 10:11:00 Test Item Value Reference Range Interpretation Comments CO2 (test code = CO2) 25 24-32 [facility] HospitalUqdhalfWRHAAKIOEUYD9322-56-19 10:11:00 Test Item Value Reference Range Interpretation Comments Chloride Lvl (test code = Chloride Lvl) 108 95-109 [facility] HospitalGkhxfzmOVXMBNCBWHIU4606-55-69 10:11:00 Test Item Value Reference Range Interpretation Comments Potassium Lvl (test code = Potassium 4.0 3.5-5.1 Lvl) [facility] HospitalErvanuzSHNLTNHONCZA4892-90-17 10:11:00 Test Item Value Reference Range Interpretation Comments Sodium Lvl (test code = Sodium Lvl) 140 135-145 [facility] HospitalIppknxbBFJKKPOOVCZN4342-75-38 10:11:00 Test Item Value Reference Range Interpretation Comments BUN (test code = BUN) 11 7-22 [facility] HospitalMlsqdfbPILUOWCQXFLK2739-53-00 10:11:00 Test Item Value Reference Range Interpretation Comments Glucose Lvl (test code = Glucose Lvl) 85 70-99 [facility]anoKrtlvkmETRMHSOVZJ8052-55-99 10:11:00 Test Item Value Reference Range Interpretation Comments MCH (test code = MCH) 27.9 pg 27.0-31.0 [facility]anoYlzzdjlWZBVUWPIOF9168-59-31 10:11:00 Test Item Value Reference Range Interpretation Comments MCHC (test code = MCHC) 33.5 32.0-36.0 [facility]anoPiezadbYWHILDIDNY9127-78-92 10:11:00 Test Item Value Reference Range Interpretation Comments Hct (test code = Hct) 36.7 42.0-54.0 [facility] PlanoEqjwethIYSUTEINXW4899-82-89 10:11:00 Test Item Value Reference Range Interpretation Comments MCV (test code = MCV) 83.1 80.0-94.0 [place] 278548-12-14 10:11:00 Test Item Value Reference Range Interpretation Comments RBC (test code = RBC) 4.42 4.70-6.10 [facility]anoUzezbsdHYGYEUEPJB5621-94-44 10:11:00 Test Item Value Reference Range Interpretation Comments Hgb (test code = Hgb) 12.3 14.0-18.0 [facility]anoJnwuukbBJINLIIVOG9938-70-14 10:11:00 Test Item Value Reference Range Interpretation Comments WBC (test code = WBC) 8.5 3.7-10.4 [facility] PlanoKoedlovNCNSFKGUUV9312-40-48 10:11:00 Test Item Value Reference Range Interpretation Comments MPV (test code = MPV) 9.5 7.4-10.4 [facility] PlanoCbonmnhDFYZMHMATO0179-24-39 10:11:00 Test Item Value Reference Range Interpretation Comments RDW (test code = RDW) 14.4 11.5-14.5 [facility] PlanoIniiosjOIFEWZQCWX9765-51-66 10:11:00 Test Item Value Reference Range Interpretation Comments Platelet (test code = Platelet) 164 133-450 [facility] PlanoKuikaweXAMHRKXRAT5821-66-23 10:11:00 Test Item Value Reference Range Interpretation Comments Lymphocytes # (test code = Lymphocytes 1.2 1.0-5.5 #) [facility] PlanoRxblhxfFJZQZTHZXX7143-31-04 10:11:00 Test Item Value Reference Range Interpretation Comments Monocytes # (test code 0.6 See_Comment [Aut omated message] The = Monocytes #) system which generated this result tra nsmitted reference range : <=0.8. The reference r annemarie was not used to int erpret this result as normal/abnormal . [facility]anoEbxnwahEWBVWNYQDT1735-17-62 10:11:00 Test Item Value Reference Range Interpretation Comments Eosinophils # (test code 0.2 See_Comment [A utomated message] The = Eosinophils #) system whic h generated this result tra nsmitted reference range : <=0.5. The reference r annemarie was not used to int erpret this result as normal/abnormal . [facility] PlanoLaygugsRNUNDBCHZA3191-50-15 10:11:00 Test Item Value Reference Range Interpretation Comments Basophils # (test code 0.0 See_Comment [Aut omated message] The = Basophils #) system which generated this result tra nsmitted reference range : <=0.2. The reference r annemarie was not used to int erpret this result as normal/abnormal . [facility]anoVaeiyajAMOGMJZULC6873-26-76 10:11:00 Test Item Value Reference Range Interpretation Comments Eosinophils (test code = 2.3 See_Comment [A utomated message] The Eosinophils) system which ge nerated this result tra nsmitted reference range : <=4.0. The reference r annemarie was not used to int erpret this result as normal/abnormal . [facility]anoVkbavprXVIGFXGBDW8814-96-52 10:11:00 Test Item Value Reference Range Interpretation Comments Basophils (test code = 0.3 See_Comment [Aut omated message] The Basophils) system which ge nerated this result tra nsmitted reference range : <=1.0. The reference r annemarie was not used to int erpret this result as normal/abnormal . [facility] PlanoKknnrknEWVMCWUDOU7289-10-91 10:11:00 Test Item Value Reference Range Interpretation Comments Neutrophils # (test code = Neutrophils 6.5 1.5-8.1 #) [facility]anoYbebhnuWMJGTPDABC1097-77-66 10:11:00 Test Item Value Reference Range Interpretation Comments Lymphocytes (test code = Lymphocytes) 14.5 20.0-40.0 [facility] PlanoVmibmugPLYMFNZRKY0848-40-61 10:11:00 Test Item Value Reference Range Interpretation Comments Monocytes (test code = Monocytes) 6.7 2.0-12.0 [facility]anoAqjfqwmDORBPETQOB6743-22-41 10:11:00 Test Item Value Reference Range Interpretation Comments Segs (test code = Segs) 76.2 45.0-75.0 [facility]2018-12-14 10:11:00 Test Item Value Reference Range Interpretation Comments Ca Norm WB (test code = Ca Norm WB) 1.13 1.05-1.25 [facility]2018-12-14 10:11:00 Test Item Value Reference Range Interpretation Comments Ca Ion WB (test code = Ca Ion WB) 1.17 1.05-1.25 [facility] HospitalCARDIAC IQLCEAI0495-17-56 10:11:00 Test Item Value Reference Range Interpretation Comments Troponin-I (test code no gt See_Comment [Auto mated message] The = Troponin-I) system which g enerated this result transmit abdelrahman reference range : <=0.40. The reference r annemarie was not used to interpr et this result as gurpreet l/abnormal. [facility] HospitalCHEM QKBGG6497-84-60 10:11:00 Test Item Value Reference Range Interpretation Comments Phosphorus (test code = Phosphorus) 3.7 2.5-4.5 [facility] HospitalCHEM EORIU9394-51-37 10:11:00 Test Item Value Reference Range Interpretation Comments Magnesium Lvl (test code = Magnesium 2.1 1.8-2.4 Lvl) [facility] [facility]RccygldURYFVSGPPWNC2984-18-24 10:11:00 Test Item Value Reference Range Interpretation Comments AGAP (test code = AGAP) 11.0 10.0-20.0 [facility]BtawxeoTAITBTELKCNN1340-14-50 10:11:00 Test Item Value Reference Range Interpretation Comments Creatinine Lvl (test code = Creatinine 0.90 0.50-1.40 Lvl) [facility]PfhzlsnQYCBZCALJCDN4756-85-37 10:11:00 Test Item Value Reference Range Interpretation Comments eGFR (test code = eGFR) 114 [facility] HospitalNhenaluXYGLBWEVYEBY9759-76-00 10:11:00 Test Item Value Reference Range Interpretation Comments Calcium Lvl (test code = Calcium Lvl) 8.2 8.5-10.5 [facility] CenterYdshmfsFEHMMAEDMRWB9936-78-80 10:11:00 Test Item Value Reference Range Interpretation Comments CO2 (test code = CO2) 25 24-32 [facility] HospitalMlzuamnNDRUXRVUVFFJ4099-46-72 10:11:00 Test Item Value Reference Range Interpretation Comments Chloride Lvl (test code = Chloride Lvl) 108 95-109 [facility] HospitalOdvokhsOWKSGGTNAJHO9924-34-46 10:11:00 Test Item Value Reference Range Interpretation Comments Potassium Lvl (test code = Potassium 4.0 3.5-5.1 Lvl) [facility] HospitalFysmsptZJHOBRFSOABH0141-54-77 10:11:00 Test Item Value Reference Range Interpretation Comments Sodium Lvl (test code = Sodium Lvl) 140 135-145 [facility] HospitalPamxblbVJDQUYGBHZAP0712-86-08 10:11:00 Test Item Value Reference Range Interpretation Comments BUN (test code = BUN) 11 7-22 [facility] HospitalEhivsnfJJFRLDNPCAXF7336-80-99 10:11:00 Test Item Value Reference Range Interpretation Comments Glucose Lvl (test code = Glucose Lvl) 85 70-99 [facility]BwgkbzjFAVNPAGKGL3899-29-66 10:11:00 Test Item Value Reference Range Interpretation Comments MCH (test code = MCH) 27.9 pg 27.0-31.0 [facility]anoVywiwzoANRKCCCWMS6612-57-32 10:11:00 Test Item Value Reference Range Interpretation Comments MCHC (test code = MCHC) 33.5 32.0-36.0 [facility]anoPvhlsylQRQIFZKQYH4954-65-70 10:11:00 Test Item Value Reference Range Interpretation Comments Hct (test code = Hct) 36.7 42.0-54.0 [facility]anoXkezmgwHBDZWNUUNL8708-71-45 10:11:00 Test Item Value Reference Range Interpretation Comments MCV (test code = MCV) 83.1 80.0-94.0 [facility]anoNoxteajVLFKJGSFCC9940-88-68 10:11:00 Test Item Value Reference Range Interpretation Comments RBC (test code = RBC) 4.42 4.70-6.10 [facility]anoYjoefxsBTGOHOUETA6152-10-59 10:11:00 Test Item Value Reference Range Interpretation Comments Hgb (test code = Hgb) 12.3 14.0-18.0 [facility]anoApnwnbfWIJNGHFLRO1856-54-04 10:11:00 Test Item Value Reference Range Interpretation Comments WBC (test code = WBC) 8.5 3.7-10.4 [facility]anoRfxyshnLXHMYAUZMH7700-67-99 10:11:00 Test Item Value Reference Range Interpretation Comments MPV (test code = MPV) 9.5 7.4-10.4 [facility]anoBkchhcwXAIPSJFKWY6195-92-81 10:11:00 Test Item Value Reference Range Interpretation Comments RDW (test code = RDW) 14.4 11.5-14.5 [facility]anoPnxclniTAAFRBWNSO2487-76-76 10:11:00 Test Item Value Reference Range Interpretation Comments Platelet (test code = Platelet) 164 133-450 [facility]anoKwdwpaoXSMKUEKEYY4066-62-43 10:11:00 Test Item Value Reference Range Interpretation Comments Lymphocytes # (test code = Lymphocytes 1.2 1.0-5.5 #) [facility]anoHhirvkmIIJDCJYGNF2680-75-48 10:11:00 Test Item Value Reference Range Interpretation Comments Monocytes # (test code 0.6 See_Comment [Aut omated message] The = Monocytes #) system which generated this result tra nsmitted reference range : <=0.8. The reference r annemarie was not used to int erpret this result as normal/abnormal . [facility]anoVrbkrmqOOFZFNEPIL2084-43-25 10:11:00 Test Item Value Reference Range Interpretation Comments Eosinophils # (test code 0.2 See_Comment [A utomated message] The = Eosinophils #) system wh h generated this result tra nsmitted reference range : <=0.5. The reference r annemarie was not used to int erpret this result as normal/abnormal . [facility]anoVgkjaowPJFWKDACOX1028-47-02 10:11:00 Test Item Value Reference Range Interpretation Comments Basophils # (test code 0.0 See_Comment [Aut omated message] The = Basophils #) system which generated this result tra nsmitted reference range : <=0.2. The reference r annemarie was not used to int erpret this result as normal/abnormal . [facility]anoEywjwapLYEECETMKE0634-98-62 10:11:00 Test Item Value Reference Range Interpretation Comments Eosinophils (test code = 2.3 See_Comment [A utomated message] The Eosinophils) system which ge nerated this result tra nsmitted reference range : <=4.0. The reference r annemarie was not used to int erpret this result as normal/abnormal . [facility]anoDfsfwgmIWVILKJBNW0396-12-62 10:11:00 Test Item Value Reference Range Interpretation Comments Basophils (test code = 0.3 See_Comment [Aut omated message] The Basophils) system which ge nerated this result tra nsmitted reference range : <=1.0. The reference r annemarie was not used to int erpret this result as normal/abnormal . [facility]anoSiopugxMCFWLTDJEU2452-82-32 10:11:00 Test Item Value Reference Range Interpretation Comments Neutrophils # (test code = Neutrophils 6.5 1.5-8.1 #) [facility]anoVkupvwiRQEKNMCURJ1058-59-40 10:11:00 Test Item Value Reference Range Interpretation Comments Lymphocytes (test code = Lymphocytes) 14.5 20.0-40.0 [facility] CenterBdalmkjWHWPAGHNKI9199-74-69 10:11:00 Test Item Value Reference Range Interpretation Comments Monocytes (test code = Monocytes) 6.7 2.0-12.0 [facility] CenterCbpkeijDPYDLSFXSJ8546-93-09 10:11:00 Test Item Value Reference Range Interpretation Comments Segs (test code = Segs) 76.2 45.0-75.0 [facility] CenterannPARATHYROID RUTDJYV0368-71-98 10:11:00 Test Item Value Reference Range Interpretation Comments Ca Norm WB (test code = Ca Norm WB) 1.13 1.05-1.25 [facility] CenterannPARATHYROID GOEDEVV1035-44-34 10:11:00 Test Item Value Reference Range Interpretation Comments Ca Ion WB (test code = Ca Ion WB) 1.17 1.05-1.25 [facility] CenterannCARDIAC FDPDOPT3793-61-50 10:11:00 Test Item Value Reference Range Interpretation Comments Troponin-I (test code no gt See_Comment [Auto mated message] The = Troponin-I) system which g enerated this result transmit abdelrahman reference range : <=0.40. The reference r annemarie was not used to interpr et this result as gurpreet l/abnormal. [facility] CenterannCHEM EYBJV5182-69-92 10:11:00 Test Item Value Reference Range Interpretation Comments Phosphorus (test code = Phosphorus) 3.7 2.5-4.5 [facility] CenterannCHEM OYYTC7410-50-30 10:11:00 Test Item Value Reference Range Interpretation Comments Magnesium Lvl (test code = Magnesium 2.1 1.8-2.4 Lvl) [facility] CenterXdzlcytFVXBWLDTMHVF4956-45-04 10:11:00 Test Item Value Reference Range Interpretation Comments AGAP (test code = AGAP) 11.0 10.0-20.0 [facility] CenterQuipdevWGMZSXTMPPAM2308-90-93 10:11:00 Test Item Value Reference Range Interpretation Comments Creatinine Lvl (test code = Creatinine 0.90 0.50-1.40 Lvl) [facility] CenterKoptcaxOJZOJTNXNJEN6693-60-21 10:11:00 Test Item Value Reference Range Interpretation Comments eGFR (test code = eGFR) 114 [facility] CenterIwxbrxtIVZTMVAQYUHK7930-34-07 10:11:00 Test Item Value Reference Range Interpretation Comments Calcium Lvl (test code = Calcium Lvl) 8.2 8.5-10.5 [facility] HospitalJhsxmrkLXSLRQDOARBW8798-24-27 10:11:00 Test Item Value Reference Range Interpretation Comments CO2 (test code = CO2) 25 24-32 [facility] HospitalFtojjmoZBREUPTFMLMM5426-11-48 10:11:00 Test Item Value Reference Range Interpretation Comments Chloride Lvl (test code = Chloride Lvl) 108 95-109 [facility] HospitalEjdxcumGCKCOJULOTBZ2461-08-20 10:11:00 Test Item Value Reference Range Interpretation Comments Potassium Lvl (test code = Potassium 4.0 3.5-5.1 Lvl) [facility] HospitalDvbpqzxZQZNVWPRVFXT2378-06-19 10:11:00 Test Item Value Reference Range Interpretation Comments Sodium Lvl (test code = Sodium Lvl) 140 135-145 [facility] HospitalMxnsxreXSBIOHCRCTQZ2099-21-68 10:11:00 Test Item Value Reference Range Interpretation Comments BUN (test code = BUN) 11 7-22 [facility] HospitalTzfumwiHPMRJMDFWKDL4728-59-94 10:11:00 Test Item Value Reference Range Interpretation Comments Glucose Lvl (test code = Glucose Lvl) 85 70-99 [facility]anoWuwhrlkKDMXJYFEBB9127-24-22 10:11:00 Test Item Value Reference Range Interpretation Comments MCH (test code = MCH) 27.9 pg 27.0-31.0 [facility]anoVhkfslfHXBAMYCKXN3244-56-97 10:11:00 Test Item Value Reference Range Interpretation Comments MCHC (test code = MCHC) 33.5 32.0-36.0 [facility]anoYlybaroFOHXWRRIGI0953-03-09 10:11:00 Test Item Value Reference Range Interpretation Comments Hct (test code = Hct) 36.7 42.0-54.0 [facility] PlanoZiasyafLOOAXTSLTG8072-68-58 10:11:00 Test Item Value Reference Range Interpretation Comments MCV (test code = MCV) 83.1 80.0-94.0 [facility]anoXcuirelQKLLENGIRM1287-68-50 10:11:00 Test Item Value Reference Range Interpretation Comments RBC (test code = RBC) 4.42 4.70-6.10 [facility]anoDlsqdjlQCQAETURXB9696-13-62 10:11:00 Test Item Value Reference Range Interpretation Comments Hgb (test code = Hgb) 12.3 14.0-18.0 [place] 278548-12-14 10:11:00 Test Item Value Reference Range Interpretation Comments WBC (test code = WBC) 8.5 3.7-10.4 [facility]anoHpdnseyEBNEECVIUP1109-56-85 10:11:00 Test Item Value Reference Range Interpretation Comments MPV (test code = MPV) 9.5 7.4-10.4 [facility] PlanoHrbziaoPTOZGFZDKO3201-19-96 10:11:00 Test Item Value Reference Range Interpretation Comments RDW (test code = RDW) 14.4 11.5-14.5 [facility]anoTbrycayXEBWIQESRL9613-57-82 10:11:00 Test Item Value Reference Range Interpretation Comments Platelet (test code = Platelet) 164 133-450 [facility] PlanoIugczzwCQBYOUHUYT5014-76-36 10:11:00 Test Item Value Reference Range Interpretation Comments Lymphocytes # (test code = Lymphocytes 1.2 1.0-5.5 #) [facility]anoBnrxxxzJKOWFGYOXY7144-82-05 10:11:00 Test Item Value Reference Range Interpretation Comments Monocytes # (test code 0.6 See_Comment [Aut omated message] The = Monocytes #) system which generated this result tra nsmitted reference range : <=0.8. The reference r annemarie was not used to int erpret this result as normal/abnormal . [facility] PlanoAzbyjecZNIYWSRPKU4045-53-23 10:11:00 Test Item Value Reference Range Interpretation Comments Eosinophils # (test code 0.2 See_Comment [A utomated message] The = Eosinophils #) system whic h generated this result tra nsmitted reference range : <=0.5. The reference r annemarie was not used to int erpret this result as normal/abnormal . [facility] PlanoQhkuinfBVDNONQTUI0775-27-63 10:11:00 Test Item Value Reference Range Interpretation Comments Basophils # (test code 0.0 See_Comment [Aut omated message] The = Basophils #) system which generated this result tra nsmitted reference range : <=0.2. The reference r annemarie was not used to int erpret this result as normal/abnormal . [facility] PlanoVygtyakMWFZTZQOBG8703-12-78 10:11:00 Test Item Value Reference Range Interpretation Comments Eosinophils (test code = 2.3 See_Comment [A utomated message] The Eosinophils) system which ge nerated this result tra nsmitted reference range : <=4.0. The reference r annemarie was not used to int erpret this result as normal/abnormal . [facility] CenterEoihhzqIWYHOXDDZA2713-91-48 10:11:00 Test Item Value Reference Range Interpretation Comments Basophils (test code = 0.3 See_Comment [Aut omated message] The Basophils) system which ge nerated this result tra nsmitted reference range : <=1.0. The reference r annemarie was not used to int erpret this result as normal/abnormal . [facility]ZmkwmjoYCFQJMUMHP2471-28-28 10:11:00 Test Item Value Reference Range Interpretation Comments Neutrophils # (test code = Neutrophils 6.5 1.5-8.1 #) [facility] CenterZwafpscXARQJFPDRA3943-95-37 10:11:00 Test Item Value Reference Range Interpretation Comments Lymphocytes (test code = Lymphocytes) 14.5 20.0-40.0 [facility] CenterWywoyhlLLUIKMKOHF1426-09-85 10:11:00 Test Item Value Reference Range Interpretation Comments Monocytes (test code = Monocytes) 6.7 2.0-12.0 [facility] CenterCplfizwTXKHDRNDWS0367-19-03 10:11:00 Test Item Value Reference Range Interpretation Comments Segs (test code = Segs) 76.2 45.0-75.0 [facility] CenterannPARATHYROID DHZOJHP9849-89-80 10:11:00 Test Item Value Reference Range Interpretation Comments Ca Norm WB (test code = Ca Norm WB) 1.13 1.05-1.25 [facility] CenterannPARATHYROID MQDAVXL0620-84-61 10:11:00 Test Item Value Reference Range Interpretation Comments Ca Ion WB (test code = Ca Ion WB) 1.17 1.05-1.25 [facility] CenterannCARDIAC CNYTTLU4856-88-59 10:11:00 Test Item Value Reference Range Interpretation Comments Troponin-I (test code no gt See_Comment [Auto mated message] The = Troponin-I) system which g enerated this result transmit abdelrahman reference range : <=0.40. The reference r annemarie was not used to interpr et this result as gurpreet l/abnormal. [facility] HospitalCHEM QOVHH8236-02-51 10:11:00 Test Item Value Reference Range Interpretation Comments Phosphorus (test code = Phosphorus) 3.7 2.5-4.5 [facility] HospitalCHEM KZYEN5456-42-58 10:11:00 Test Item Value Reference Range Interpretation Comments Magnesium Lvl (test code = Magnesium 2.1 1.8-2.4 Lvl) [facility] HospitalOzdvibyNOZPFHUSETEN4174-04-38 10:11:00 Test Item Value Reference Range Interpretation Comments AGAP (test code = AGAP) 11.0 10.0-20.0 [facility] HospitalRrctrubAOITULSOWQVN5449-61-62 10:11:00 Test Item Value Reference Range Interpretation Comments Creatinine Lvl (test code = Creatinine 0.90 0.50-1.40 Lvl) [facility] HospitalMkcubbmIOUCLEVANRRI3015-47-13 10:11:00 Test Item Value Reference Range Interpretation Comments eGFR (test code = eGFR) 114 [facility] HospitalRvfhlehIGXDUBTPRILV4431-03-70 10:11:00 Test Item Value Reference Range Interpretation Comments Calcium Lvl (test code = Calcium Lvl) 8.2 8.5-10.5 [facility] HospitalQhfvsrfSZXPUOHJZJWV1276-27-38 10:11:00 Test Item Value Reference Range Interpretation Comments CO2 (test code = CO2) 25 24-32 [facility] HospitalVpshvreDXUWTZKUBSKF6540-50-97 10:11:00 Test Item Value Reference Range Interpretation Comments Chloride Lvl (test code = Chloride Lvl) 108 95-109 [facility] HospitalVxjjwyhVNUMVMXIKUID5351-50-79 10:11:00 Test Item Value Reference Range Interpretation Comments Potassium Lvl (test code = Potassium 4.0 3.5-5.1 Lvl) [facility] HospitalCmmqtpcOYUBPZDLPFSG1956-33-99 10:11:00 Test Item Value Reference Range Interpretation Comments Sodium Lvl (test code = Sodium Lvl) 140 135-145 [facility] HospitalPtxtawoRTYPDVCSVZCC6078-13-75 10:11:00 Test Item Value Reference Range Interpretation Comments BUN (test code = BUN) 11 7-22 [facility] HospitalSutdsjbTRJMBAAHNVOF2977-86-72 10:11:00 Test Item Value Reference Range Interpretation Comments Glucose Lvl (test code = Glucose Lvl) 85 70-99 [facility]anoFxtnvfpTAKETNWJZK5453-40-37 10:11:00 Test Item Value Reference Range Interpretation Comments MCH (test code = MCH) 27.9 pg 27.0-31.0 [facility]anoCbvuioeQSOODKJRAI3664-40-73 10:11:00 Test Item Value Reference Range Interpretation Comments MCHC (test code = MCHC) 33.5 32.0-36.0 [facility] PlanoTahnullTJRWUYEJIA0478-84-68 10:11:00 Test Item Value Reference Range Interpretation Comments Hct (test code = Hct) 36.7 42.0-54.0 [facility] PlanoAjwwwhdRYXCBXNNUQ6258-74-78 10:11:00 Test Item Value Reference Range Interpretation Comments MCV (test code = MCV) 83.1 80.0-94.0 [facility] PlanoMzumtusUPPWEXTYGU8649-02-51 10:11:00 Test Item Value Reference Range Interpretation Comments RBC (test code = RBC) 4.42 4.70-6.10 [facility] PlanoOahomoiXCSYDSBFDF4157-67-17 10:11:00 Test Item Value Reference Range Interpretation Comments Hgb (test code = Hgb) 12.3 14.0-18.0 [facility] PlanoZqkrfefVCVOTPRVEJ5391-10-58 10:11:00 Test Item Value Reference Range Interpretation Comments WBC (test code = WBC) 8.5 3.7-10.4 [facility] PlanoLksfohuFMOTPYSFUG5993-32-71 10:11:00 Test Item Value Reference Range Interpretation Comments MPV (test code = MPV) 9.5 7.4-10.4 [facility] PlanoSpegpumYKWNNPXQAX7270-07-99 10:11:00 Test Item Value Reference Range Interpretation Comments RDW (test code = RDW) 14.4 11.5-14.5 [facility]anoIbeccptQXCGGLIIOG5759-18-82 10:11:00 Test Item Value Reference Range Interpretation Comments Platelet (test code = Platelet) 164 133-450 [facility]anoKwnjwvnKNTXFIYBSP3803-86-33 10:11:00 Test Item Value Reference Range Interpretation Comments Lymphocytes # (test code = Lymphocytes 1.2 1.0-5.5 #) [facility] PlanoHooqwjdVTVEGRREGV7316-34-85 10:11:00 Test Item Value Reference Range Interpretation Comments Monocytes # (test code 0.6 See_Comment [Aut omated message] The = Monocytes #) system which generated this result tra nsmitted reference range : <=0.8. The reference r annemarie was not used to int erpret this result as normal/abnormal . [facility] PlanoGabenkvVUOUNLUMXK1734-94-34 10:11:00 Test Item Value Reference Range Interpretation Comments Eosinophils # (test code 0.2 See_Comment [A utomated message] The = Eosinophils #) system whic h generated this result tra nsmitted reference range : <=0.5. The reference r annemarie was not used to int erpret this result as normal/abnormal . [facility] PlanoRacjcvpOKOKFALDAG4045-30-86 10:11:00 Test Item Value Reference Range Interpretation Comments Basophils # (test code 0.0 See_Comment [Aut omated message] The = Basophils #) system which generated this result tra nsmitted reference range : <=0.2. The reference r annemarie was not used to int erpret this result as normal/abnormal . [facility] PlanoKfpbmxdUDYEJOXTMO0616-32-96 10:11:00 Test Item Value Reference Range Interpretation Comments Eosinophils (test code = 2.3 See_Comment [A utomated message] The Eosinophils) system which ge nerated this result tra nsmitted reference range : <=4.0. The reference r annemarie was not used to int erpret this result as normal/abnormal . [facility] PlanoApagljrFUJZHZBQVN3265-08-05 10:11:00 Test Item Value Reference Range Interpretation Comments Basophils (test code = 0.3 See_Comment [Aut omated message] The Basophils) system which ge nerated this result tra nsmitted reference range : <=1.0. The reference r annemarie was not used to int erpret this result as normal/abnormal . [facility] PlanoBkcvkzhZBRRDYTLQG8440-17-81 10:11:00 Test Item Value Reference Range Interpretation Comments Neutrophils # (test code = Neutrophils 6.5 1.5-8.1 #) [facility]anoPkybxlqIOOGCCWTNQ3964-04-06 10:11:00 Test Item Value Reference Range Interpretation Comments Lymphocytes (test code = Lymphocytes) 14.5 20.0-40.0 [facility] PlanoXwlmdxnDZMMDLTECF9494-25-26 10:11:00 Test Item Value Reference Range Interpretation Comments Monocytes (test code = Monocytes) 6.7 2.0-12.0 [facility]anoTzrsncfZBYNBBFANG5018-16-42 10:11:00 Test Item Value Reference Range Interpretation Comments Segs (test code = Segs) 76.2 45.0-75.0 [facility]2018-12-14 10:11:00 Test Item Value Reference Range Interpretation Comments Ca Norm WB (test code = Ca Norm WB) 1.13 1.05-1.25 [facility]2018-12-14 10:11:00 Test Item Value Reference Range Interpretation Comments Ca Ion WB (test code = Ca Ion WB) 1.17 1.05-1.25 [facility] YCITG5871-99-22 06:21:00 Test Item Value Reference Range Interpretation Comments UA Sq Epi (test code = None Seen (04/13/18 UA Sq Epi) 12:21 AM) [facility] [id number] 06:21:00 Test Item Value Reference Range Interpretation Comments UA WBC (test code = 1 See_Comment [Automa abdelrahman message] The UA WBC) system which ge nerated this result transmit abdelrahman reference range : <=5. The reference range was not used to interpr et this result as gurpreet l/abnormal. [facility] [id number] 06:21:00 Test Item Value Reference Range Interpretation Comments UA RBC (test code = 1 See_Comment [Automa abdelrahman message] The UA RBC) system which ge nerated this result transmit abdelrahman reference range : <=2. The reference range was not used to interpr et this result as gurpreet l/abnormal. [facility] EVJDH5382-70-35 06:21:00 Test Item Value Reference Range Interpretation Comments UA Imperial Yeast (test code = UA Occasional /HPF Imperial Yeast) [facility] [id number] 06:21:00 Test Item Value Reference Range Interpretation Comments UA Color (test code = UA Color) Ltyellow [facility] [id number] 06:21:00 Test Item Value Reference Range Interpretation Comments UA Spec Grav (test code = UA Spec 1.009 1 Grav) [facility] SWWOS2448-86-01 06:21:00 Test Item Value Reference Range Interpretation Comments UA Turbidity (test code = Clear (04/13/18 UA Turbidity) 12:21 AM) [facility] [id number] 06:21:00 Test Item Value Reference Range Interpretation Comments UA Urobilinogen (test code = UA no gt 0.1-1.0 Urobilinogen) [facility] [id number] 06:21:00 Test Item Value Reference Range Interpretation Comments UA Ketones (test code Negative *NA*(04/13/18 = UA Ketones) 12:21 AM) [facility] [id number] 06:21:00 Test Item Value Reference Range Interpretation Comments UA Glucose (test code Negative *NA*(04/13/18 = UA Glucose) 12:21 AM) [facility] [id number] 06:21:00 Test Item Value Reference Range Interpretation Comments UA Leuk Est (test code Trace *ABN*(04/13/18 = UA Leuk Est) 12:21 AM) [facility] [id number] 06:21:00 Test Item Value Reference Range Interpretation Comments UA Nitrite (test code Negative (04/13/18 = UA Nitrite) 12:21 AM) [facility] [id number] 06:21:00 Test Item Value Reference Range Interpretation Comments UA Bili (test code = Negative *NA*(04/13/18 UA Bili) 12:21 AM) [facility] [id number] 06:21:00 Test Item Value Reference Range Interpretation Comments UA pH (test code = UA pH) 7.0 1 5.0-8.0 [facility] [id number] 06:21:00 Test Item Value Reference Range Interpretation Comments UA Blood (test code = Negative (04/13/18 12:21 UA Blood) AM) [facility] AND [id number] 06:21:00 Test Item Value Reference Range Interpretation Comments UA Protein (test code Negative (04/13/18 = UA Protein) 12:21 AM) [facility] [id number] 06:21:00 Test Item Value Reference Range Interpretation Comments UA Sq Epi (test code = None Seen (04/13/18 UA Sq Epi) 12:21 AM) [facility] [id number] 06:21:00 Test Item Value Reference Range Interpretation Comments UA WBC (test code = 1 See_Comment [Automa abdelrahman message] The UA WBC) system which ge nerated this result transmit abdelrahman reference range : <=5. The reference range was not used to interpr et this result as gurpreet l/abnormal. [facility] [id number] 06:21:00 Test Item Value Reference Range Interpretation Comments UA RBC (test code = 1 See_Comment [Automa abdelrahman message] The UA RBC) system which ge nerated this result transmit abdelrahman reference range : <=2. The reference range was not used to interpr et this result as gurpreet l/abnormal. [facility] AND [id number] 06:21:00 Test Item Value Reference Range Interpretation Comments UA Imperial Yeast (test code = UA Occasional /HPF Imperial Yeast) [facility] AND [id number] 06:21:00 Test Item Value Reference Range Interpretation Comments UA Color (test code = UA Color) Ltyellow [facility] AND [id number] 06:21:00 Test Item Value Reference Range Interpretation Comments UA Spec Grav (test code = UA Spec 1.009 1 Grav) [facility] AND [id number] 06:21:00 Test Item Value Reference Range Interpretation Comments UA Turbidity (test code = Clear (04/13/18 UA Turbidity) 12:21 AM) [facility] AND [id number] 06:21:00 Test Item Value Reference Range Interpretation Comments UA Urobilinogen (test code = UA no gt 0.1-1.0 Urobilinogen) [facility] AND [id number] 06:21:00 Test Item Value Reference Range Interpretation Comments UA Ketones (test code Negative *NA*(04/13/18 = UA Ketones) 12:21 AM) [facility] AND [id number] 06:21:00 Test Item Value Reference Range Interpretation Comments UA Glucose (test code Negative *NA*(04/13/18 = UA Glucose) 12:21 AM) [facility] AND [id number] 06:21:00 Test Item Value Reference Range Interpretation Comments UA Leuk Est (test code Trace *ABN*(04/13/18 = UA Leuk Est) 12:21 AM) [facility] AND [id number] 06:21:00 Test Item Value Reference Range Interpretation Comments UA Nitrite (test code Negative (04/13/18 = UA Nitrite) 12:21 AM) [facility] AND [id number] 06:21:00 Test Item Value Reference Range Interpretation Comments UA Bili (test code = Negative *NA*(04/13/18 UA Bili) 12:21 AM) [facility] AND [id number] 06:21:00 Test Item Value Reference Range Interpretation Comments UA pH (test code = UA pH) 7.0 1 5.0-8.0 [facility] [id number] 06:21:00 Test Item Value Reference Range Interpretation Comments UA Blood (test code = Negative (04/13/18 12:21 UA Blood) AM) [facility] [id number] 06:21:00 Test Item Value Reference Range Interpretation Comments UA Protein (test code Negative (04/13/18 = UA Protein) 12:21 AM) [facility] [id number] 06:21:00 Test Item Value Reference Range Interpretation Comments UA Sq Epi (test code = None Seen (04/13/18 UA Sq Epi) 12:21 AM) [facility] AND [id number] 06:21:00 Test Item Value Reference Range Interpretation Comments UA WBC (test code = 1 See_Comment [Automa abdelrahman message] The UA WBC) system which ge nerated this result transmit abdelrahman reference range : <=5. The reference range was not used to interpr et this result as gurpreet l/abnormal. [facility] [id number] 06:21:00 Test Item Value Reference Range Interpretation Comments UA RBC (test code = 1 See_Comment [Automa abdelrahman message] The UA RBC) system which ge nerated this result transmit abdelrahman reference range : <=2. The reference range was not used to interpr et this result as gurpreet l/abnormal. [facility] [id number] 06:21:00 Test Item Value Reference Range Interpretation Comments UA Imperial Yeast (test code = UA Occasional /HPF Imperial Yeast) [facility] AND [id number] 06:21:00 Test Item Value Reference Range Interpretation Comments UA Color (test code = UA Color) Ltyellow [facility] AND [id number] 06:21:00 Test Item Value Reference Range Interpretation Comments UA Spec Grav (test code = UA Spec 1.009 1 Grav) [facility] AND [id number] 06:21:00 Test Item Value Reference Range Interpretation Comments UA Turbidity (test code = Clear (04/13/18 UA Turbidity) 12:21 AM) [facility] AND [id number] 06:21:00 Test Item Value Reference Range Interpretation Comments UA Urobilinogen (test code = UA no gt 0.1-1.0 Urobilinogen) [facility] AND [id number] 06:21:00 Test Item Value Reference Range Interpretation Comments UA Ketones (test code Negative *NA*(04/13/18 = UA Ketones) 12:21 AM) [facility] [id number] 06:21:00 Test Item Value Reference Range Interpretation Comments UA Glucose (test code Negative *NA*(04/13/18 = UA Glucose) 12:21 AM) [facility] AND [id number] 06:21:00 Test Item Value Reference Range Interpretation Comments UA Leuk Est (test code Trace *ABN*(04/13/18 = UA Leuk Est) 12:21 AM) [facility] AND [id number] 06:21:00 Test Item Value Reference Range Interpretation Comments UA Nitrite (test code Negative (04/13/18 = UA Nitrite) 12:21 AM) [facility] AND [id number] 06:21:00 Test Item Value Reference Range Interpretation Comments UA Bili (test code = Negative *NA*(04/13/18 UA Bili) 12:21 AM) [facility] AND [id number] 06:21:00 Test Item Value Reference Range Interpretation Comments UA pH (test code = UA pH) 7.0 1 5.0-8.0 [facility] AND [id number] 06:21:00 Test Item Value Reference Range Interpretation Comments UA Blood (test code = Negative (04/13/18 12:21 UA Blood) AM) [facility] AND [id number] 06:21:00 Test Item Value Reference Range Interpretation Comments UA Protein (test code Negative (04/13/18 = UA Protein) 12:21 AM) [facility] AND [id number] 06:21:00 Test Item Value Reference Range Interpretation Comments UA Sq Epi (test code = None Seen (04/13/18 UA Sq Epi) 12:21 AM) [facility] AND [id number] 06:21:00 Test Item Value Reference Range Interpretation Comments UA WBC (test code = 1 See_Comment [Automa abdelrahman message] The UA WBC) system which ge nerated this result transmit abdelrahman reference range : <=5. The reference range was not used to interpr et this result as gurpreet l/abnormal. [facility] AND [id number] 06:21:00 Test Item Value Reference Range Interpretation Comments UA RBC (test code = 1 See_Comment [Automa abdelrahman message] The UA RBC) system which ge nerated this result transmit abdelrahman reference range : <=2. The reference range was not used to interpr et this result as gurpreet l/abnormal. [facility] AND [id number] 06:21:00 Test Item Value Reference Range Interpretation Comments UA Imperial Yeast (test code = UA Occasional /HPF Imperial Yeast) [facility] AND [id number] 06:21:00 Test Item Value Reference Range Interpretation Comments UA Color (test code = UA Color) Ltyellow [facility] AND [id number] 06:21:00 Test Item Value Reference Range Interpretation Comments UA Spec Grav (test code = UA Spec 1.009 1 Grav) [facility] AND [id number] 06:21:00 Test Item Value Reference Range Interpretation Comments UA Turbidity (test code = Clear (04/13/18 UA Turbidity) 12:21 AM) [facility] AND [id number] 06:21:00 Test Item Value Reference Range Interpretation Comments UA Urobilinogen (test code = UA no gt 0.1-1.0 Urobilinogen) [facility] AND [id number] 06:21:00 Test Item Value Reference Range Interpretation Comments UA Ketones (test code Negative *NA*(04/13/18 = UA Ketones) 12:21 AM) [facility] AND [id number] 06:21:00 Test Item Value Reference Range Interpretation Comments UA Glucose (test code Negative *NA*(04/13/18 = UA Glucose) 12:21 AM) [facility] AND [id number] 06:21:00 Test Item Value Reference Range Interpretation Comments UA Leuk Est (test code Trace *ABN*(04/13/18 = UA Leuk Est) 12:21 AM) [facility] AND [id number] 06:21:00 Test Item Value Reference Range Interpretation Comments UA Nitrite (test code Negative (04/13/18 = UA Nitrite) 12:21 AM) [facility] [id number] 06:21:00 Test Item Value Reference Range Interpretation Comments UA Bili (test code = Negative *NA*(04/13/18 UA Bili) 12:21 AM) [facility] [id number] 06:21:00 Test Item Value Reference Range Interpretation Comments UA pH (test code = UA pH) 7.0 1 5.0-8.0 [facility] [id number] 06:21:00 Test Item Value Reference Range Interpretation Comments UA Blood (test code = Negative (04/13/18 12:21 UA Blood) AM) [facility] [id number] 06:21:00 Test Item Value Reference Range Interpretation Comments UA Protein (test code Negative (04/13/18 = UA Protein) 12:21 AM) [facility] [id number] 06:21:00 Test Item Value Reference Range Interpretation Comments UA Sq Epi (test code = None Seen (04/13/18 UA Sq Epi) 12:21 AM) [facility] [id number] 06:21:00 Test Item Value Reference Range Interpretation Comments UA WBC (test code = 1 See_Comment [Automa abdelrahman message] The UA WBC) system which ge nerated this result transmit abdelrahman reference range : <=5. The reference range was not used to interpr et this result as gurpreet l/abnormal. [facility] [id number] 06:21:00 Test Item Value Reference Range Interpretation Comments UA RBC (test code = 1 See_Comment [Automa abdelrahman message] The UA RBC) system which ge nerated this result transmit adbelrahman reference range : <=2. The reference range was not used to interpr et this result as gurpreet l/abnormal. [facility] [id number] 06:21:00 Test Item Value Reference Range Interpretation Comments UA Imperial Yeast (test code = UA Occasional /HPF Imperial Yeast) [facility] [id number] 06:21:00 Test Item Value Reference Range Interpretation Comments UA Color (test code = UA Color) Ltyellow [facility] [id number] 06:21:00 Test Item Value Reference Range Interpretation Comments UA Spec Grav (test code = UA Spec 1.009 1 Grav) [facility] [id number] 06:21:00 Test Item Value Reference Range Interpretation Comments UA Turbidity (test code = Clear (04/13/18 UA Turbidity) 12:21 AM) [facility] [id number] 06:21:00 Test Item Value Reference Range Interpretation Comments UA Urobilinogen (test code = UA no gt 0.1-1.0 Urobilinogen) [facility] [id number] 06:21:00 Test Item Value Reference Range Interpretation Comments UA Ketones (test code Negative *NA*(04/13/18 = UA Ketones) 12:21 AM) [facility] [id number] 06:21:00 Test Item Value Reference Range Interpretation Comments UA Glucose (test code Negative *NA*(04/13/18 = UA Glucose) 12:21 AM) [facility] [id number] 06:21:00 Test Item Value Reference Range Interpretation Comments UA Leuk Est (test code Trace *ABN*(04/13/18 = UA Leuk Est) 12:21 AM) [facility] [id number] 06:21:00 Test Item Value Reference Range Interpretation Comments UA Nitrite (test code Negative (04/13/18 = UA Nitrite) 12:21 AM) [facility] [id number] 06:21:00 Test Item Value Reference Range Interpretation Comments UA Bili (test code = Negative *NA*(04/13/18 UA Bili) 12:21 AM) [facility] [id number] 06:21:00 Test Item Value Reference Range Interpretation Comments UA pH (test code = UA pH) 7.0 1 5.0-8.0 [facility] [id number] 06:21:00 Test Item Value Reference Range Interpretation Comments UA Blood (test code = Negative (04/13/18 12:21 UA Blood) AM) [facility] [id number] 06:21:00 Test Item Value Reference Range Interpretation Comments UA Protein (test code Negative (04/13/18 = UA Protein) 12:21 AM) [facility] [id number] 05:42:00 Test Item Value Reference Range Interpretation Comments Troponin-I (test code no gt See_Comment [Auto mated message] The = Troponin-I) system which g enerated this result transmit abdelrahman reference range : <=0.40. The reference r annemarie was not used to interpr et this result as gurpreet l/abnormal. [facility] [id number] 05:42:00 Test Item Value Reference Range Interpretation Comments HIV Ag/Ab 4th Gen Negative *NA*(04/12/18 (test code = HIV 11:42 PM) Ag/Ab 4th Gen) [facility] Silvigen2018-12-14 05:42:00 Test Item Value Reference Range Interpretation Comments Troponin-I (test code no gt See_Comment [Auto mated message] The = Troponin-I) system which g enerated this result transmit abdelrahman reference range : <=0.40. The reference r annemarie was not used to interpr et this result as gurpreet l/abnormal. [facility] [id number] 05:42:00 Test Item Value Reference Range Interpretation Comments HIV Ag/Ab 4th Gen Negative *NA*(04/12/18 (test code = HIV 11:42 PM) Ag/Ab 4th Gen) [facility] [id number] 05:42:00 Test Item Value Reference Range Interpretation Comments Troponin-I (test code no gt See_Comment [Auto mated message] The = Troponin-I) system which g enerated this result transmit abdelrahman reference range : <=0.40. The reference r annemarie was not used to interpr et this result as gurpreet l/abnormal. [facility] [id number] 05:42:00 Test Item Value Reference Range Interpretation Comments HIV Ag/Ab 4th Gen Negative *NA*(04/12/18 (test code = HIV 11:42 PM) Ag/Ab 4th Gen) [facility] Silvigen2018-12-14 05:42:00 Test Item Value Reference Range Interpretation Comments Troponin-I (test code no gt See_Comment [Auto mated message] The = Troponin-I) system which g enerated this result transmit abdelrahman reference range : <=0.40. The reference r annemarie was not used to interpr et this result as gurpreet l/abnormal. [facility] [id number] 05:42:00 Test Item Value Reference Range Interpretation Comments HIV Ag/Ab 4th Gen Negative *NA*(04/12/18 (test code = HIV 11:42 PM) Ag/Ab 4th Gen) [facility] [id number] 05:42:00 Test Item Value Reference Range Interpretation Comments Troponin-I (test code no gt See_Comment [Auto mated message] The = Troponin-I) system which g enerated this result transmit abdelrahman reference range : <=0.40. The reference r annemarie was not used to interpr et this result as gurpreet l/abnormal. [facility] [id number] 05:42:00 Test Item Value Reference Range Interpretation Comments HIV Ag/Ab 4th Gen Negative *NA*(04/12/18 (test code = HIV 11:42 PM) Ag/Ab 4th Gen) [facility] [id number] 05:18:00 Test Item Value Reference Range Interpretation Comments MRSA by PCR (test Negative (04/12/18 11:18 code = MRSA by PCR) PM) [facility] - [id number] 05:18:00 Test Item Value Reference Range Interpretation Comments MRSA by PCR (test Negative (04/12/18 11:18 code = MRSA by PCR) PM) [facility] - [id number] 05:18:00 Test Item Value Reference Range Interpretation Comments MRSA by PCR (test Negative (04/12/18 11:18 code = MRSA by PCR) PM) [facility] - [id number] 05:18:00 Test Item Value Reference Range Interpretation Comments MRSA by PCR (test Negative (04/12/18 11:18 code = MRSA by PCR) PM) [facility] - [id number] 05:18:00 Test Item Value Reference Range Interpretation Comments MRSA by PCR (test Negative (04/12/18 11:18 code = MRSA by PCR) PM) [facility] [id number] 23:22:00 Test Item Value Reference Range Interpretation Comments U Odalys Scr (test code Negative *NA*(04/12/18 = U Odalys Scr) 5:22 PM) [facility] [id number] 23:22:00 Test Item Value Reference Range Interpretation Comments U Benzodiaz Scr (test Negative *NA*(04/12/18 code = U Benzodiaz Scr) 5:22 PM) [facility] [id number] 23:22:00 Test Item Value Reference Range Interpretation Comments U Amph Scr (test code Negative *NA*(04/12/18 = U Amph Scr) 5:22 PM) [facility] [id number] 23:22:00 Test Item Value Reference Range Interpretation Comments U Cocaine Scr (test Negative *NA*(04/12/18 code = U Cocaine Scr) 5:22 PM) [facility] [id number] 23:22:00 Test Item Value Reference Range Interpretation Comments U Opiate Scr (test Negative *NA*(04/12/18 code = U Opiate Scr) 5:22 PM) [facility] [id number] 23:22:00 Test Item Value Reference Range Interpretation Comments UDS Note (test code = See Note (04/12/18 5:22 UDS Note) PM) [facility] [id number] 23:22:00 Test Item Value Reference Range Interpretation Comments U Cannab Scr (test Negative *NA*(04/12/18 code = U Cannab Scr) 5:22 PM) [facility] [id number] 23:22:00 Test Item Value Reference Range Interpretation Comments U Phencyclidine Scr (test Negative code = U Phencyclidine *NA*(04/12/18 5:22 Scr) PM) [facility]ann[facility] [id number] 23:22:00 Test Item Value Reference Range Interpretation Comments U Odalys Scr (test code Negative *NA*(04/12/18 = U Odalys Scr) 5:22 PM) [facility] [id number] 23:22:00 Test Item Value Reference Range Interpretation Comments U Benzodiaz Scr (test Negative *NA*(04/12/18 code = U Benzodiaz Scr) 5:22 PM) [facility] [id number] 23:22:00 Test Item Value Reference Range Interpretation Comments U Amph Scr (test code Negative *NA*(04/12/18 = U Amph Scr) 5:22 PM) [facility] [id number] 23:22:00 Test Item Value Reference Range Interpretation Comments U Cocaine Scr (test Negative *NA*(04/12/18 code = U Cocaine Scr) 5:22 PM) [facility] [id number] 23:22:00 Test Item Value Reference Range Interpretation Comments U Opiate Scr (test Negative *NA*(04/12/18 code = U Opiate Scr) 5:22 PM) [facility] [id number] 23:22:00 Test Item Value Reference Range Interpretation Comments UDS Note (test code = See Note (04/12/18 5:22 UDS Note) PM) [facility] [id number] 23:22:00 Test Item Value Reference Range Interpretation Comments U Cannab Scr (test Negative *NA*(04/12/18 code = U Cannab Scr) 5:22 PM) [facility] [id number] 23:22:00 Test Item Value Reference Range Interpretation Comments U Phencyclidine Scr (test Negative code = U Phencyclidine *NA*(04/12/18 5:22 Scr) PM) [facility] [id number] 23:22:00 Test Item Value Reference Range Interpretation Comments U Odalys Scr (test code Negative *NA*(04/12/18 = U Odalys Scr) 5:22 PM) [facility] [id number] 23:22:00 Test Item Value Reference Range Interpretation Comments U Benzodiaz Scr (test Negative *NA*(04/12/18 code = U Benzodiaz Scr) 5:22 PM) [facility] [id number] 23:22:00 Test Item Value Reference Range Interpretation Comments U Amph Scr (test code Negative *NA*(04/12/18 = U Amph Scr) 5:22 PM) [facility] [id number] 23:22:00 Test Item Value Reference Range Interpretation Comments U Cocaine Scr (test Negative *NA*(04/12/18 code = U Cocaine Scr) 5:22 PM) [facility] [id number] 23:22:00 Test Item Value Reference Range Interpretation Comments U Opiate Scr (test Negative *NA*(04/12/18 code = U Opiate Scr) 5:22 PM) [facility] [id number] 23:22:00 Test Item Value Reference Range Interpretation Comments UDS Note (test code = See Note (04/12/18 5:22 UDS Note) PM) [facility] [id number] 23:22:00 Test Item Value Reference Range Interpretation Comments U Cannab Scr (test Negative *NA*(04/12/18 code = U Cannab Scr) 5:22 PM) [facility] [id number] 23:22:00 Test Item Value Reference Range Interpretation Comments U Phencyclidine Scr (test Negative code = U Phencyclidine *NA*(04/12/18 5:22 Scr) PM) [facility] [id number] 23:22:00 Test Item Value Reference Range Interpretation Comments U Odalys Scr (test code Negative *NA*(04/12/18 = U Odalys Scr) 5:22 PM) [facility] [id number] 23:22:00 Test Item Value Reference Range Interpretation Comments U Benzodiaz Scr (test Negative *NA*(04/12/18 code = U Benzodiaz Scr) 5:22 PM) [facility] [id number] 23:22:00 Test Item Value Reference Range Interpretation Comments U Amph Scr (test code Negative *NA*(04/12/18 = U Amph Scr) 5:22 PM) [facility] [id number] 23:22:00 Test Item Value Reference Range Interpretation Comments U Cocaine Scr (test Negative *NA*(04/12/18 code = U Cocaine Scr) 5:22 PM) [facility] [id number] 23:22:00 Test Item Value Reference Range Interpretation Comments U Opiate Scr (test Negative *NA*(04/12/18 code = U Opiate Scr) 5:22 PM) [facility] [id number] 23:22:00 Test Item Value Reference Range Interpretation Comments UDS Note (test code = See Note (04/12/18 5:22 UDS Note) PM) [facility] [id number] 23:22:00 Test Item Value Reference Range Interpretation Comments U Cannab Scr (test Negative *NA*(04/12/18 code = U Cannab Scr) 5:22 PM) [facility] [id number] 23:22:00 Test Item Value Reference Range Interpretation Comments U Phencyclidine Scr (test Negative code = U Phencyclidine *NA*(04/12/18 5:22 Scr) PM) [facility] [id number] 23:22:00 Test Item Value Reference Range Interpretation Comments U Odalys Scr (test code Negative *NA*(04/12/18 = U Odalys Scr) 5:22 PM) [facility] [id number] 23:22:00 Test Item Value Reference Range Interpretation Comments U Benzodiaz Scr (test Negative *NA*(04/12/18 code = U Benzodiaz Scr) 5:22 PM) [facility] [id number] 23:22:00 Test Item Value Reference Range Interpretation Comments U Amph Scr (test code Negative *NA*(04/12/18 = U Amph Scr) 5:22 PM) [facility] [id number] 23:22:00 Test Item Value Reference Range Interpretation Comments U Cocaine Scr (test Negative *NA*(04/12/18 code = U Cocaine Scr) 5:22 PM) [facility] [id number] 23:22:00 Test Item Value Reference Range Interpretation Comments U Opiate Scr (test Negative *NA*(04/12/18 code = U Opiate Scr) 5:22 PM) [facility] [id number] 23:22:00 Test Item Value Reference Range Interpretation Comments UDS Note (test code = See Note (04/12/18 5:22 UDS Note) PM) [facility] [id number] 23:22:00 Test Item Value Reference Range Interpretation Comments U Cannab Scr (test Negative *NA*(04/12/18 code = U Cannab Scr) 5:22 PM) [facility] [id number] 23:22:00 Test Item Value Reference Range Interpretation Comments U Phencyclidine Scr (test Negative code = U Phencyclidine *NA*(04/12/18 5:22 Scr) PM) [facility] PkykkpwRBMQSVJBIA9696-65-63 22:38:00 Test Item Value Reference Range Interpretation Comments Segs (test code = Segs) 92.9 45.0-75.0 [facility] CenterSqutpioPPBTGNDLJB3793-67-29 22:38:00 Test Item Value Reference Range Interpretation Comments Large Plt (test code Moderate *ABN*(04/12/18 = Large Plt) 4:38 PM) [facility] [employer] [id number] 22:38:00 Test Item Value Reference Range Interpretation Comments Troponin-I (test code 0.02 See_Comment [Auto mated message] The = Troponin-I) system which g enerated this result transmit abdelrahman reference range : <=0.40. The reference r annemarie was not used to interpr et this result as gurpreet l/abnormal. [facility] [employer] [id number] 22:38:00 Test Item Value Reference Range Interpretation Comments Total CK (test code = Total CK) 50 12-191 [facility] [employer] [id number] 22:38:00 Test Item Value Reference Range Interpretation Comments eGFR (test code = eGFR) 120 [facility] [employer] [id number] 22:38:00 Test Item Value Reference Range Interpretation Comments AST (test code = AST) 17 See_Comment [Auto mated message] The system which ge nerated this result transmit abdelrahman reference range : <=37. The reference range was not used to interpr et this result as gurpreet l/abnormal. [facility] [employer] [id number] 22:38:00 Test Item Value Reference Range Interpretation Comments ALT (test code = ALT) 23 See_Comment [Auto mated message] The system which ge nerated this result transmit abdelrahman reference range : <=65. The reference range was not used to interpr et this result as gurpreet l/abnormal. [facility] [employer]2018-12-13 22:38:00 Test Item Value Reference Range Interpretation Comments Albumin Lvl (test code = Albumin Lvl) 4.0 3.5-5.0 [facility] [employer]2018-12-13 22:38:00 Test Item Value Reference Range Interpretation Comments Total Protein (test code = Total 7.4 6.4-8.4 Protein) [facility] [employer]2018-12-13 22:38:00 Test Item Value Reference Range Interpretation Comments Bili Total (test code = Bili Total) 0.3 0.2-1.3 [facility] [employer] [id number] 22:38:00 Test Item Value Reference Range Interpretation Comments Alk Phos (test code = Alk Phos) 35 39-136 [facility] [employer]2018-12-13 22:38:00 Test Item Value Reference Range Interpretation Comments Chloride Lvl (test code = Chloride Lvl) 103 95-109 [facility]2018-12-13 22:38:00 Test Item Value Reference Range Interpretation Comments Calcium Lvl (test code = Calcium Lvl) 9.4 8.5-10.5 [facility]2018-12-13 22:38:00 Test Item Value Reference Range Interpretation Comments CO2 (test code = CO2) 32 24-32 [facility]2018-12-13 22:38:00 Test Item Value Reference Range Interpretation Comments Potassium Lvl (test code = Potassium 4.2 3.5-5.1 Lvl) [facility]2018-12-13 22:38:00 Test Item Value Reference Range Interpretation Comments Sodium Lvl (test code = Sodium Lvl) 139 135-145 [facility]2018-12-13 22:38:00 Test Item Value Reference Range Interpretation Comments Creatinine Lvl (test code = Creatinine 0.80 0.50-1.40 Lvl) [facility]2018-12-13 22:38:00 Test Item Value Reference Range Interpretation Comments BUN (test code = BUN) 12 7-22 [facility]2018-12-13 22:38:00 Test Item Value Reference Range Interpretation Comments Glucose Lvl (test code = Glucose Lvl) 93 70-99 [facility]2018-12-13 22:38:00 Test Item Value Reference Range Interpretation Comments A/G Ratio (test code = A/G Ratio) 1.2 1 0.7-1.6 [facility]2018-12-13 22:38:00 Test Item Value Reference Range Interpretation Comments Globulin (test code = Globulin) 3.4 2.7-4.2 [facility]2018-12-13 22:38:00 Test Item Value Reference Range Interpretation Comments B/C Ratio (test code = B/C Ratio) 15 1 6-25 [facility]2018-12-13 22:38:00 Test Item Value Reference Range Interpretation Comments AGAP (test code = AGAP) 8.2 10.0-20.0 [facility] HospitalNwlclneQIJLAIVKDZ9455-75-80 22:38:00 Test Item Value Reference Range Interpretation Comments MCHC (test code = MCHC) 32.1 32.0-36.0 [facility]QrdpxmyJTMBCSOGTT2384-69-66 22:38:00 Test Item Value Reference Range Interpretation Comments MCH (test code = MCH) 27.4 pg 27.0-31.0 [facility]anoHmruwznBAWOXTIULO1123-59-45 22:38:00 Test Item Value Reference Range Interpretation Comments Platelet (test code = Platelet) 200 133-450 [facility]anoFkyvtjbBZREHUIPBF7262-79-41 22:38:00 Test Item Value Reference Range Interpretation Comments RDW (test code = RDW) 14.4 11.5-14.5 [facility]anoMvlcbilZNYCJSCXHG6860-95-92 22:38:00 Test Item Value Reference Range Interpretation Comments MPV (test code = MPV) 9.1 7.4-10.4 [facility]anoLuwrcnoWZMLXCVLQQ6211-98-46 22:38:00 Test Item Value Reference Range Interpretation Comments WBC (test code = WBC) 14.0 3.7-10.4 [facility] PlanoZmyiazpPAUNDGBTMR1526-82-12 22:38:00 Test Item Value Reference Range Interpretation Comments RBC (test code = RBC) 5.18 4.70-6.10 [facility] PlanoCvsivizPCKRMAKAGM3015-89-37 22:38:00 Test Item Value Reference Range Interpretation Comments Hgb (test code = Hgb) 14.2 14.0-18.0 [facility]anoHszuphlSVTRKEPFED0216-60-16 22:38:00 Test Item Value Reference Range Interpretation Comments Hct (test code = Hct) 44.2 42.0-54.0 [facility] PlanoSkxvyfrJBDBPISJHZ8813-03-07 22:38:00 Test Item Value Reference Range Interpretation Comments MCV (test code = MCV) 85.3 80.0-94.0 [place] [address]-12-13 22:38:00 Test Item Value Reference Range Interpretation Comments Basophils (test code = 0.2 See_Comment [Aut omated message] The Basophils) system which ge nerated this result tra nsmitted reference range : <=1.0. The reference r annemarie was not used to int erpret this result as normal/abnormal . [facility]anoQeogbvvJSZGTSLRCX2944-84-34 22:38:00 Test Item Value Reference Range Interpretation Comments Eosinophils (test code = 0.1 See_Comment [A utomated message] The Eosinophils) system which ge nerated this result tra nsmitted reference range : <=4.0. The reference r annemarie was not used to int erpret this result as normal/abnormal . [facility]anoWgscnbfMTYWOHYRNW0426-68-99 22:38:00 Test Item Value Reference Range Interpretation Comments Monocytes (test code = Monocytes) 2.7 2.0-12.0 [facility] PlanoQqmemoiCELGMOHIHR8640-04-64 22:38:00 Test Item Value Reference Range Interpretation Comments Monocytes # (test code 0.4 See_Comment [Aut omated message] The = Monocytes #) system which generated this result tra nsmitted reference range : <=0.8. The reference r annemarie was not used to int erpret this result as normal/abnormal . [facility] PlanoCbfbhbnMNHNRDXLTU1600-86-79 22:38:00 Test Item Value Reference Range Interpretation Comments Lymphocytes # (test code = Lymphocytes 0.6 1.0-5.5 #) [facility] PlanoFwjqjslONWAQVDKMO4311-57-53 22:38:00 Test Item Value Reference Range Interpretation Comments Neutrophils # (test code = Neutrophils 13.0 1.5-8.1 #) [facility] PlanoYovwljtUTKLPXHCIO1560-62-49 22:38:00 Test Item Value Reference Range Interpretation Comments Lymphocytes (test code = Lymphocytes) 4.1 20.0-40.0 [facility] PlanoIkrnrmdDRXMWWMIJN8491-86-61 22:38:00 Test Item Value Reference Range Interpretation Comments Eosinophils # (test code 0.0 See_Comment [A utomated message] The = Eosinophils #) system [facility] h generated this result tra nsmitted reference range : <=0.5. The reference r annemarie was not used to int erpret this result as normal/abnormal . [facility] PlanoJmkxxueTBYTCRAEOU3456-26-97 22:38:00 Test Item Value Reference Range Interpretation Comments Basophils # (test code 0.0 See_Comment [Aut omated message] The = Basophils #) system which generated this result tra nsmitted reference range : <=0.2. The reference r annemarie was not used to int erpret this result as normal/abnormal . [facility] PlanoGqemcubDOZVYKABSF1255-25-30 22:38:00 Test Item Value Reference Range Interpretation Comments RBC Morph (test code = Normal (04/12/18 4:38 RBC Morph) PM) [place] [id number] 22:38:00 Test Item Value Reference Range Interpretation Comments Plt Morph (test code = Normal (04/12/18 4:38 Plt Morph) PM) [facility] PlanoAaskhtqHHJGXBVWKK3382-35-54 22:38:00 Test Item Value Reference Range Interpretation Comments Segs (test code = Segs) 92.9 45.0-75.0 [facility] PlanoDavqvlwCZREZBVJCZ0235-65-85 22:38:00 Test Item Value Reference Range Interpretation Comments Large Plt (test code Moderate *ABN*(04/12/18 = Large Plt) 4:38 PM) [facility] HospitalNasseoBRECKINR[facility] [id number] 22:38:00 Test Item Value Reference Range Interpretation Comments Troponin-I (test code 0.02 See_Comment [Auto mated message] The = Troponin-I) system which g enerated this result transmit abdelrahman reference range : <=0.40. The reference r annemarie was not used to interpr et this result as gurpreet l/abnormal. [facility] HospitalAtavist [id number] 22:38:00 Test Item Value Reference Range Interpretation Comments Total CK (test code = Total CK) 50 12-191 [facility] CenterCondoDomain [id number] 22:38:00 Test Item Value Reference Range Interpretation Comments eGFR (test code = eGFR) 120 [facility] [employer] [id number] 22:38:00 Test Item Value Reference Range Interpretation Comments AST (test code = AST) 17 See_Comment [Auto mated message] The system which ge nerated this result transmit abdelrahman reference range : <=37. The reference range was not used to interpr et this result as gurpreet l/abnormal. [facility] [employer]2018-12-13 22:38:00 Test Item Value Reference Range Interpretation Comments ALT (test code = ALT) 23 See_Comment [Auto mated message] The system which ge nerated this result transmit abdelrahman reference range : <=65. The reference range was not used to interpr et this result as gurpreet l/abnormal. [facility] HospitalAnimated DynamicsUPJZZ3463-03-69 22:38:00 Test Item Value Reference Range Interpretation Comments Albumin Lvl (test code = Albumin Lvl) 4.0 3.5-5.0 [facility] CenterHelp [id number] 22:38:00 Test Item Value Reference Range Interpretation Comments Total Protein (test code = Total 7.4 6.4-8.4 Protein) [facility]2018-12-13 22:38:00 Test Item Value Reference Range Interpretation Comments Bili Total (test code = Bili Total) 0.3 0.2-1.3 [facility]2018-12-13 22:38:00 Test Item Value Reference Range Interpretation Comments Alk Phos (test code = Alk Phos) 35 39-136 [facility]2018-12-13 22:38:00 Test Item Value Reference Range Interpretation Comments Chloride Lvl (test code = Chloride Lvl) 103 95-109 [facility]2018-12-13 22:38:00 Test Item Value Reference Range Interpretation Comments Calcium Lvl (test code = Calcium Lvl) 9.4 8.5-10.5 [facility]2018-12-13 22:38:00 Test Item Value Reference Range Interpretation Comments CO2 (test code = CO2) 32 24-32 [facility]2018-12-13 22:38:00 Test Item Value Reference Range Interpretation Comments Potassium Lvl (test code = Potassium 4.2 3.5-5.1 Lvl) [facility]2018-12-13 22:38:00 Test Item Value Reference Range Interpretation Comments Sodium Lvl (test code = Sodium Lvl) 139 135-145 [facility]2018-12-13 22:38:00 Test Item Value Reference Range Interpretation Comments Creatinine Lvl (test code = Creatinine 0.80 0.50-1.40 Lvl) [facility]2018-12-13 22:38:00 Test Item Value Reference Range Interpretation Comments BUN (test code = BUN) 12 7-22 [facility]2018-12-13 22:38:00 Test Item Value Reference Range Interpretation Comments Glucose Lvl (test code = Glucose Lvl) 93 70-99 [facility]2018-12-13 22:38:00 Test Item Value Reference Range Interpretation Comments A/G Ratio (test code = A/G Ratio) 1.2 1 0.7-1.6 [facility]2018-12-13 22:38:00 Test Item Value Reference Range Interpretation Comments Globulin (test code = Globulin) 3.4 2.7-4.2 [facility]2018-12-13 22:38:00 Test Item Value Reference Range Interpretation Comments B/C Ratio (test code = B/C Ratio) 15 1 6-25 [facility] [id number] 22:38:00 Test Item Value Reference Range Interpretation Comments AGAP (test code = AGAP) 8.2 10.0-20.0 [facility]anoLabphkpEJXMAWCAZU0200-83-53 22:38:00 Test Item Value Reference Range Interpretation Comments MCHC (test code = MCHC) 32.1 32.0-36.0 [facility] PlanoSutshfqNKJXOBBUJV4678-38-88 22:38:00 Test Item Value Reference Range Interpretation Comments MCH (test code = MCH) 27.4 pg 27.0-31.0 [facility] PlanoZojoniwNEDCLEUXEC6116-53-57 22:38:00 Test Item Value Reference Range Interpretation Comments Platelet (test code = Platelet) 200 133-450 [facility] PlanoFcwbqvpPBMYJABALW2905-07-61 22:38:00 Test Item Value Reference Range Interpretation Comments RDW (test code = RDW) 14.4 11.5-14.5 [facility] PlanoApifqqlPERDKVWLLD5572-72-15 22:38:00 Test Item Value Reference Range Interpretation Comments MPV (test code = MPV) 9.1 7.4-10.4 [facility] PlanoZdlfnagVQFBSOMYTH4452-33-58 22:38:00 Test Item Value Reference Range Interpretation Comments WBC (test code = WBC) 14.0 3.7-10.4 [facility] PlanoFqhaxewFAWGZNTVFB0966-15-67 22:38:00 Test Item Value Reference Range Interpretation Comments RBC (test code = RBC) 5.18 4.70-6.10 [facility] PlanoAnxvhqzGAYUCIARSP0413-66-02 22:38:00 Test Item Value Reference Range Interpretation Comments Hgb (test code = Hgb) 14.2 14.0-18.0 [facility] PlanoDbasbbgLUVXKCDXTF6575-18-18 22:38:00 Test Item Value Reference Range Interpretation Comments Hct (test code = Hct) 44.2 42.0-54.0 [facility] PlanoNolqqbkGDXHGUKDUL4260-91-45 22:38:00 Test Item Value Reference Range Interpretation Comments MCV (test code = MCV) 85.3 80.0-94.0 [facility] PlanoPkxxxznKJBUBINJKE9586-22-98 22:38:00 Test Item Value Reference Range Interpretation Comments Basophils (test code = 0.2 See_Comment [Aut omated message] The Basophils) system which ge nerated this result tra nsmitted reference range : <=1.0. The reference r annemarie was not used to int erpret this result as normal/abnormal . [facility] PlanoCrhiqrsPNCHNVQQGQ9121-27-73 22:38:00 Test Item Value Reference Range Interpretation Comments Eosinophils (test code = 0.1 See_Comment [A utomated message] The Eosinophils) system which ge nerated this result tra nsmitted reference range : <=4.0. The reference r annemarie was not used to int erpret this result as normal/abnormal . [facility] PlanoYykqlarAEEMAKUYKL8839-92-72 22:38:00 Test Item Value Reference Range Interpretation Comments Monocytes (test code = Monocytes) 2.7 2.0-12.0 [facility] PlanoYuylhtkRFPKKOZAWO5230-57-15 22:38:00 Test Item Value Reference Range Interpretation Comments Monocytes # (test code 0.4 See_Comment [Aut omated message] The = Monocytes #) system which generated this result tra nsmitted reference range : <=0.8. The reference r annemarie was not used to int erpret this result as normal/abnormal . [facility] PlanoAagcrnvERHAIDRTBE3902-72-00 22:38:00 Test Item Value Reference Range Interpretation Comments Lymphocytes # (test code = Lymphocytes 0.6 1.0-5.5 #) [facility] PlanoWrujlevFFCVOICBFO5990-38-49 22:38:00 Test Item Value Reference Range Interpretation Comments Neutrophils # (test code = Neutrophils 13.0 1.5-8.1 #) [facility] PlanoDiioofqQOPCNMYIJF3994-97-33 22:38:00 Test Item Value Reference Range Interpretation Comments Lymphocytes (test code = Lymphocytes) 4.1 20.0-40.0 [facility] PlanoYldrzpxRUAUFOQFFR1566-64-60 22:38:00 Test Item Value Reference Range Interpretation Comments Eosinophils # (test code 0.0 See_Comment [A utomated message] The = Eosinophils #) system [facility] h generated this result tra nsmitted reference range : <=0.5. The reference r annemarie was not used to int erpret this result as normal/abnormal . [facility] PlanoJayzuzxYGHBSOSGGO7124-24-30 22:38:00 Test Item Value Reference Range Interpretation Comments Basophils # (test code 0.0 See_Comment [Aut omated message] The = Basophils #) system which generated this result tra nsmitted reference range : <=0.2. The reference r annemarie was not used to int erpret this result as normal/abnormal . [facility] CenterEnittspULPZCIERNI0332-33-57 22:38:00 Test Item Value Reference Range Interpretation Comments RBC Morph (test code = Normal (04/12/18 4:38 RBC Morph) PM) [facility] CenterQzjjibjQDBVFOFVXJ4905-68-06 22:38:00 Test Item Value Reference Range Interpretation Comments Plt Morph (test code = Normal (04/12/18 4:38 Plt Morph) PM) [facility] CenterBlaxpblCSCGFTUOCI5025-26-08 22:38:00 Test Item Value Reference Range Interpretation Comments Segs (test code = Segs) 92.9 45.0-75.0 [facility] CenterBihwwjpPOZSNQLPBU2583-68-33 22:38:00 Test Item Value Reference Range Interpretation Comments Large Plt (test code Moderate *ABN*(04/12/18 = Large Plt) 4:38 PM) [facility] CenterOpenSpirit2018-12-13 22:38:00 Test Item Value Reference Range Interpretation Comments Troponin-I (test code 0.02 See_Comment [Auto mated message] The = Troponin-I) system which g enerated this result transmit abdelrahman reference range : <=0.40. The reference r annemarie was not used to interpr et this result as gurpreet l/abnormal. [facility] [employer]2018-12-13 22:38:00 Test Item Value Reference Range Interpretation Comments Total CK (test code = Total CK) 50 12-191 [facility] [employer]2018-12-13 22:38:00 Test Item Value Reference Range Interpretation Comments eGFR (test code = eGFR) 120 [facility] [employer]2018-12-13 22:38:00 Test Item Value Reference Range Interpretation Comments AST (test code = AST) 17 See_Comment [Auto mated message] The system which ge nerated this result transmit abdelrahman reference range : <=37. The reference range was not used to interpr et this result as gurpreet l/abnormal. [facility] [employer]2018-12-13 22:38:00 Test Item Value Reference Range Interpretation Comments ALT (test code = ALT) 23 See_Comment [Auto mated message] The system which ge nerated this result transmit abdelrahman reference range : <=65. The reference range was not used to interpr et this result as gurpreet l/abnormal. [facility]2018-12-13 22:38:00 Test Item Value Reference Range Interpretation Comments Albumin Lvl (test code = Albumin Lvl) 4.0 3.5-5.0 [facility]2018-12-13 22:38:00 Test Item Value Reference Range Interpretation Comments Total Protein (test code = Total 7.4 6.4-8.4 Protein) [facility]2018-12-13 22:38:00 Test Item Value Reference Range Interpretation Comments Bili Total (test code = Bili Total) 0.3 0.2-1.3 [facility]2018-12-13 22:38:00 Test Item Value Reference Range Interpretation Comments Alk Phos (test code = Alk Phos) 35 39-136 [facility]2018-12-13 22:38:00 Test Item Value Reference Range Interpretation Comments Chloride Lvl (test code = Chloride Lvl) 103 95-109 [facility]2018-12-13 22:38:00 Test Item Value Reference Range Interpretation Comments Calcium Lvl (test code = Calcium Lvl) 9.4 8.5-10.5 [facility]2018-12-13 22:38:00 Test Item Value Reference Range Interpretation Comments CO2 (test code = CO2) 32 24-32 [facility]2018-12-13 22:38:00 Test Item Value Reference Range Interpretation Comments Potassium Lvl (test code = Potassium 4.2 3.5-5.1 Lvl) [facility]2018-12-13 22:38:00 Test Item Value Reference Range Interpretation Comments Sodium Lvl (test code = Sodium Lvl) 139 135-145 [facility]2018-12-13 22:38:00 Test Item Value Reference Range Interpretation Comments Creatinine Lvl (test code = Creatinine 0.80 0.50-1.40 Lvl) [facility]2018-12-13 22:38:00 Test Item Value Reference Range Interpretation Comments BUN (test code = BUN) 12 7-22 [facility]2018-12-13 22:38:00 Test Item Value Reference Range Interpretation Comments Glucose Lvl (test code = Glucose Lvl) 93 70-99 [facility]2018-12-13 22:38:00 Test Item Value Reference Range Interpretation Comments A/G Ratio (test code = A/G Ratio) 1.2 1 0.7-1.6 [facility]2018-12-13 22:38:00 Test Item Value Reference Range Interpretation Comments Globulin (test code = Globulin) 3.4 2.7-4.2 [facility]2018-12-13 22:38:00 Test Item Value Reference Range Interpretation Comments B/C Ratio (test code = B/C Ratio) 15 1 6-25 [facility]2018-12-13 22:38:00 Test Item Value Reference Range Interpretation Comments AGAP (test code = AGAP) 8.2 10.0-20.0 [facility] PlanoIihuowxSWHIBJSXHN7902-96-18 22:38:00 Test Item Value Reference Range Interpretation Comments MCHC (test code = MCHC) 32.1 32.0-36.0 [facility] PlanoEqkfucxNYHHQQKMGG4894-27-03 22:38:00 Test Item Value Reference Range Interpretation Comments MCH (test code = MCH) 27.4 pg 27.0-31.0 [facility] PlanoExophqwDKQAVXGMPK6139-84-57 22:38:00 Test Item Value Reference Range Interpretation Comments Platelet (test code = Platelet) 200 133-450 [facility] PlanoKhuyhruEOSDJKVJYX1027-93-42 22:38:00 Test Item Value Reference Range Interpretation Comments RDW (test code = RDW) 14.4 11.5-14.5 [facility] [place]TefhladZUHAGJECTD9955-22-76 22:38:00 Test Item Value Reference Range Interpretation Comments MPV (test code = MPV) 9.1 7.4-10.4 [facility] [place]anoKlsonntWRSPRSKMWO6102-26-49 22:38:00 Test Item Value Reference Range Interpretation Comments WBC (test code = WBC) 14.0 3.7-10.4 [facility] [place]anoKobxfuiWRDXAFGYQY2140-44-70 22:38:00 Test Item Value Reference Range Interpretation Comments RBC (test code = RBC) 5.18 4.70-6.10 [facility] [place]NdjofngRGHCSZPHSX1655-85-93 22:38:00 Test Item Value Reference Range Interpretation Comments Hgb (test code = Hgb) 14.2 14.0-18.0 [facility] [place]anoZefztufOQNIOCZNEY5692-22-47 22:38:00 Test Item Value Reference Range Interpretation Comments Hct (test code = Hct) 44.2 42.0-54.0 [facility] [place]anoPezdxivKGHPHHINQR2615-53-89 22:38:00 Test Item Value Reference Range Interpretation Comments MCV (test code = MCV) 85.3 80.0-94.0 [facility] [place]anoAxvsrcwPHESGMBKZZ9669-26-59 22:38:00 Test Item Value Reference Range Interpretation Comments Basophils (test code = 0.2 See_Comment [Aut omated message] The Basophils) system which ge nerated this result tra nsmitted reference range : <=1.0. The reference r annemarie was not used to int erpret this result as normal/abnormal . [facility] [place]anoTbrrwifNYOVVDOESD0183-74-99 22:38:00 Test Item Value Reference Range Interpretation Comments Eosinophils (test code = 0.1 See_Comment [A utomated message] The Eosinophils) system which ge nerated this result tra nsmitted reference range : <=4.0. The reference r annemarie was not used to int erpret this result as normal/abnormal . [facility] [place]anoHwjkphoMGRCWRWYCS1095-68-17 22:38:00 Test Item Value Reference Range Interpretation Comments Monocytes (test code = Monocytes) 2.7 2.0-12.0 [facility] [place]anoDcxkedwEIPPHYMUFY8609-73-05 22:38:00 Test Item Value Reference Range Interpretation Comments Monocytes # (test code 0.4 See_Comment [Aut omated message] The = Monocytes #) system which generated this result tra nsmitted reference range : <=0.8. The reference r annemarie was not used to int erpret this result as normal/abnormal . [facility] [place]anoDsaejhcVDVONBQYTL1259-93-52 22:38:00 Test Item Value Reference Range Interpretation Comments Lymphocytes # (test code = Lymphocytes 0.6 1.0-5.5 #) [facility] [place]anoArbocitRSBXJBBBOF5944-11-87 22:38:00 Test Item Value Reference Range Interpretation Comments Neutrophils # (test code = Neutrophils 13.0 1.5-8.1 #) [facility] [place]anoUmqintxNRLVMHIKNK8894-75-30 22:38:00 Test Item Value Reference Range Interpretation Comments Lymphocytes (test code = Lymphocytes) 4.1 20.0-40.0 [facility]JmamkvyARTZEWICPJ7757-10-91 22:38:00 Test Item Value Reference Range Interpretation Comments Eosinophils # (test code 0.0 See_Comment [A utomated message] The = Eosinophils #) system whic h generated this result tra nsmitted reference range : <=0.5. The reference r annemarie was not used to int erpret this result as normal/abnormal . [facility] [place]anoOxuxsbrSFGVZEUCYD0628-40-20 22:38:00 Test Item Value Reference Range Interpretation Comments Basophils # (test code 0.0 See_Comment [Aut omated message] The = Basophils #) system which generated this result tra nsmitted reference range : <=0.2. The reference r annemarie was not used to int erpret this result as normal/abnormal . [facility] [place]anoWpzphgqJSNJFBWTON7993-44-82 22:38:00 Test Item Value Reference Range Interpretation Comments RBC Morph (test code = Normal (04/12/18 4:38 RBC Morph) PM) [facility] [place]anoLwkboyxPCAUJQKZBX1052-89-76 22:38:00 Test Item Value Reference Range Interpretation Comments Plt Morph (test code = Normal (04/12/18 4:38 Plt Morph) PM) [facility] [place]anoRjtjcsmSVJLHLFACU7054-43-03 22:38:00 Test Item Value Reference Range Interpretation Comments Segs (test code = Segs) 92.9 45.0-75.0 [facility] HospitalZsorsnuYOBPRMIMQX8647-19-64 22:38:00 Test Item Value Reference Range Interpretation Comments Large Plt (test code Moderate *ABN*(04/12/18 = Large Plt) 4:38 PM) [facility] HospitalCARMobileye BPMANFH8821-35-58 22:38:00 Test Item Value Reference Range Interpretation Comments Troponin-I (test code 0.02 See_Comment [Auto mated message] The = Troponin-I) system which g enerated this result transmit abdelrahman reference range : <=0.40. The reference r annemarie was not used to interpr et this result as gurpreet l/abnormal. [facility] HospitalAtavistAC FJYNDHN0856-11-15 22:38:00 Test Item Value Reference Range Interpretation Comments Total CK (test code = Total CK) 50 12-191 [facility] HospitalCHEM KCTIQ4057-29-14 22:38:00 Test Item Value Reference Range Interpretation Comments eGFR (test code = eGFR) 120 [facility]2018-12-13 22:38:00 Test Item Value Reference Range Interpretation Comments AST (test code = AST) 17 See_Comment [Auto mated message] The system which ge nerated this result transmit abdelrahman reference range : <=37. The reference range was not used to interpr et this result as gurpreet l/abnormal. [place] 334798-12-13 22:38:00 Test Item Value Reference Range Interpretation Comments ALT (test code = ALT) 23 See_Comment [Auto mated message] The system which ge nerated this result transmit abdelrahman reference range : <=65. The reference range was not used to interpr et this result as gurpreet l/abnormal. [facility]2018-12-13 22:38:00 Test Item Value Reference Range Interpretation Comments Albumin Lvl (test code = Albumin Lvl) 4.0 3.5-5.0 [facility]2018-12-13 22:38:00 Test Item Value Reference Range Interpretation Comments Total Protein (test code = Total 7.4 6.4-8.4 Protein) [facility]2018-12-13 22:38:00 Test Item Value Reference Range Interpretation Comments Bili Total (test code = Bili Total) 0.3 0.2-1.3 [facility]2018-12-13 22:38:00 Test Item Value Reference Range Interpretation Comments Alk Phos (test code = Alk Phos) 35 39-136 [facility]2018-12-13 22:38:00 Test Item Value Reference Range Interpretation Comments Chloride Lvl (test code = Chloride Lvl) 103 95-109 [facility]2018-12-13 22:38:00 Test Item Value Reference Range Interpretation Comments Calcium Lvl (test code = Calcium Lvl) 9.4 8.5-10.5 [facility]2018-12-13 22:38:00 Test Item Value Reference Range Interpretation Comments CO2 (test code = CO2) 32 24-32 [facility]2018-12-13 22:38:00 Test Item Value Reference Range Interpretation Comments Potassium Lvl (test code = Potassium 4.2 3.5-5.1 Lvl) [facility]2018-12-13 22:38:00 Test Item Value Reference Range Interpretation Comments Sodium Lvl (test code = Sodium Lvl) 139 135-145 [facility]2018-12-13 22:38:00 Test Item Value Reference Range Interpretation Comments Creatinine Lvl (test code = Creatinine 0.80 0.50-1.40 Lvl) [facility]2018-12-13 22:38:00 Test Item Value Reference Range Interpretation Comments BUN (test code = BUN) 12 7-22 [facility]2018-12-13 22:38:00 Test Item Value Reference Range Interpretation Comments Glucose Lvl (test code = Glucose Lvl) 93 70-99 [facility]2018-12-13 22:38:00 Test Item Value Reference Range Interpretation Comments A/G Ratio (test code = A/G Ratio) 1.2 1 0.7-1.6 [facility]2018-12-13 22:38:00 Test Item Value Reference Range Interpretation Comments Globulin (test code = Globulin) 3.4 2.7-4.2 [facility]2018-12-13 22:38:00 Test Item Value Reference Range Interpretation Comments B/C Ratio (test code = B/C Ratio) 15 1 6-25 [facility]2018-12-13 22:38:00 Test Item Value Reference Range Interpretation Comments AGAP (test code = AGAP) 8.2 10.0-20.0 [facility] [place]anoUrlibghAFATPZITJY3464-51-89 22:38:00 Test Item Value Reference Range Interpretation Comments MCHC (test code = MCHC) 32.1 32.0-36.0 [facility] [place]anoLslagzyZVJCUYPWFY9519-40-73 22:38:00 Test Item Value Reference Range Interpretation Comments MCH (test code = MCH) 27.4 pg 27.0-31.0 [facility] [place]anoPkqxtecZSOZIQPPTZ1923-84-47 22:38:00 Test Item Value Reference Range Interpretation Comments Platelet (test code = Platelet) 200 133-450 [facility] [place]anoQzsguanYPCIONNHGB0526-92-29 22:38:00 Test Item Value Reference Range Interpretation Comments RDW (test code = RDW) 14.4 11.5-14.5 [facility] [place]anoRsrhhloJWZEQYKZDY9544-10-51 22:38:00 Test Item Value Reference Range Interpretation Comments MPV (test code = MPV) 9.1 7.4-10.4 [facility] [place]anoNblvnclUWDDOLYMUJ2506-65-19 22:38:00 Test Item Value Reference Range Interpretation Comments WBC (test code = WBC) 14.0 3.7-10.4 [facility] [place]anoWgtiqtrYICMNYNCNZ0565-93-12 22:38:00 Test Item Value Reference Range Interpretation Comments RBC (test code = RBC) 5.18 4.70-6.10 [facility] [place]anoJnduxccSHJMWHXCDA0675-50-78 22:38:00 Test Item Value Reference Range Interpretation Comments Hgb (test code = Hgb) 14.2 14.0-18.0 [facility] [place]anoWcsqtnmWFGCANBKRF4957-40-00 22:38:00 Test Item Value Reference Range Interpretation Comments Hct (test code = Hct) 44.2 42.0-54.0 [facility] [place]anoSslzivfEYFPXJWEWD9071-39-20 22:38:00 Test Item Value Reference Range Interpretation Comments MCV (test code = MCV) 85.3 80.0-94.0 [facility] [place]anoWixcfkfKKFXGPUGSP0436-03-25 22:38:00 Test Item Value Reference Range Interpretation Comments Basophils (test code = 0.2 See_Comment [Aut omated message] The Basophils) system which ge nerated this result tra nsmitted reference range : <=1.0. The reference r annemarie was not used to int erpret this result as normal/abnormal . [facility] [place]anoJwmljokBAHLCIONCM8982-01-66 22:38:00 Test Item Value Reference Range Interpretation Comments Eosinophils (test code = 0.1 See_Comment [A utomated message] The Eosinophils) system which ge nerated this result tra nsmitted reference range : <=4.0. The reference r annemarie was not used to int erpret this result as normal/abnormal . [facility] [place]anoZofqbmdITQUURHSJH1227-84-45 22:38:00 Test Item Value Reference Range Interpretation Comments Monocytes (test code = Monocytes) 2.7 2.0-12.0 [facility] [place]anoSzgvgvwILWGMBPGSV8340-97-78 22:38:00 Test Item Value Reference Range Interpretation Comments Monocytes # (test code 0.4 See_Comment [Aut omated message] The = Monocytes #) system which generated this result tra nsmitted reference range : <=0.8. The reference r annemarie was not used to int erpret this result as normal/abnormal . [place] [address]-12-13 22:38:00 Test Item Value Reference Range Interpretation Comments Lymphocytes # (test code = Lymphocytes 0.6 1.0-5.5 #) [facility] [place]anoVgcriczKGWZACYQTT8264-27-15 22:38:00 Test Item Value Reference Range Interpretation Comments Neutrophils # (test code = Neutrophils 13.0 1.5-8.1 #) [facility] [place]anoXrwjckmAMLCDSBTQO8462-76-82 22:38:00 Test Item Value Reference Range Interpretation Comments Lymphocytes (test code = Lymphocytes) 4.1 20.0-40.0 [facility] [place]anoOitxmmcLHMZMNBLSP0823-29-15 22:38:00 Test Item Value Reference Range Interpretation Comments Eosinophils # (test code 0.0 See_Comment [A utomated message] The = Eosinophils #) system whic h generated this result tra nsmitted reference range : <=0.5. The reference r annemarie was not used to int erpret this result as normal/abnormal . [facility] [place]anoEuljtgrIQQOPOAZFC1214-00-47 22:38:00 Test Item Value Reference Range Interpretation Comments Basophils # (test code 0.0 See_Comment [Aut omated message] The = Basophils #) system which generated this result tra nsmitted reference range : <=0.2. The reference r annemarie was not used to int erpret this result as normal/abnormal . [facility] PlanoDkweqfrZUELZLKWDI9217-77-68 22:38:00 Test Item Value Reference Range Interpretation Comments RBC Morph (test code = Normal (04/12/18 4:38 RBC Morph) PM) [facility] [place]anoPxeycmhNWMOKCHNGY3980-69-95 22:38:00 Test Item Value Reference Range Interpretation Comments Plt Morph (test code = Normal (04/12/18 4:38 Plt Morph) PM) [facility] [place]anoPtevuqzKZFRJMHQVE1895-57-06 22:38:00 Test Item Value Reference Range Interpretation Comments Segs (test code = Segs) 92.9 45.0-75.0 [facility] [place]anoLxsxbrlPBHMQWWHRS2961-80-31 22:38:00 Test Item Value Reference Range Interpretation Comments Large Plt (test code Moderate *ABN*(04/12/18 = Large Plt) 4:38 PM) [facility]2018-12-13 22:38:00 Test Item Value Reference Range Interpretation Comments Troponin-I (test code 0.02 See_Comment [Auto mated message] The = Troponin-I) system which g enerated this result transmit abdelrahman reference range : <=0.40. The reference r annemarie was not used to interpr et this result as gurpreet l/abnormal. [facility] HospitalCARDIAC DZVRZOB5442-12-10 22:38:00 Test Item Value Reference Range Interpretation Comments Total CK (test code = Total CK) 50 12-191 [facility] HospitalHaloband [id number] 22:38:00 Test Item Value Reference Range Interpretation Comments eGFR (test code = eGFR) 120 [facility] HospitalHaloband [id number] 22:38:00 Test Item Value Reference Range Interpretation Comments AST (test code = AST) 17 See_Comment [Auto mated message] The system which ge nerated this result transmit abdelrahman reference range : <=37. The reference range was not used to interpr et this result as gurpreet l/abnormal. [facility] [id number] 22:38:00 Test Item Value Reference Range Interpretation Comments ALT (test code = ALT) 23 See_Comment [Auto mated message] The system which ge nerated this result transmit abdelrahman reference range : <=65. The reference range was not used to interpr et this result as gurpreet l/abnormal. [facility] HospitalHaloband [id number] 22:38:00 Test Item Value Reference Range Interpretation Comments Albumin Lvl (test code = Albumin Lvl) 4.0 3.5-5.0 [facility]2018-12-13 22:38:00 Test Item Value Reference Range Interpretation Comments Total Protein (test code = Total 7.4 6.4-8.4 Protein) [facility]2018-12-13 22:38:00 Test Item Value Reference Range Interpretation Comments Bili Total (test code = Bili Total) 0.3 0.2-1.3 [facility] HospitalHalob[facility] [id number] 22:38:00 Test Item Value Reference Range Interpretation Comments Alk Phos (test code = Alk Phos) 35 39-136 [facility]2018-12-13 22:38:00 Test Item Value Reference Range Interpretation Comments Chloride Lvl (test code = Chloride Lvl) 103 95-109 [facility]Hal[facility] [id number] 22:38:00 Test Item Value Reference Range Interpretation Comments Calcium Lvl (test code = Calcium Lvl) 9.4 8.5-10.5 [facility]2018-12-13 22:38:00 Test Item Value Reference Range Interpretation Comments CO2 (test code = CO2) 32 24-32 [facility]2018-12-13 22:38:00 Test Item Value Reference Range Interpretation Comments Potassium Lvl (test code = Potassium 4.2 3.5-5.1 Lvl) [facility]2018-12-13 22:38:00 Test Item Value Reference Range Interpretation Comments Sodium Lvl (test code = Sodium Lvl) 139 135-145 [facility]2018-12-13 22:38:00 Test Item Value Reference Range Interpretation Comments Creatinine Lvl (test code = Creatinine 0.80 0.50-1.40 Lvl) [facility]2018-12-13 22:38:00 Test Item Value Reference Range Interpretation Comments BUN (test code = BUN) 12 7-22 [facility]2018-12-13 22:38:00 Test Item Value Reference Range Interpretation Comments Glucose Lvl (test code = Glucose Lvl) 93 70-99 [facility]2018-12-13 22:38:00 Test Item Value Reference Range Interpretation Comments A/G Ratio (test code = A/G Ratio) 1.2 1 0.7-1.6 [facility]2018-12-13 22:38:00 Test Item Value Reference Range Interpretation Comments Globulin (test code = Globulin) 3.4 2.7-4.2 [facility]2018-12-13 22:38:00 Test Item Value Reference Range Interpretation Comments B/C Ratio (test code = B/C Ratio) 15 1 6-25 [facility]2018-12-13 22:38:00 Test Item Value Reference Range Interpretation Comments AGAP (test code = AGAP) 8.2 10.0-20.0 [facility] [place]anoYgjxaieIYEFQZFNMP7357-32-77 22:38:00 Test Item Value Reference Range Interpretation Comments MCHC (test code = MCHC) 32.1 32.0-36.0 [facility] [place]anoFffrkgoHLCJTJLNUU0462-82-92 22:38:00 Test Item Value Reference Range Interpretation Comments MCH (test code = MCH) 27.4 pg 27.0-31.0 [facility] [place]anoZfdkaxgMFNIQCCQCL7043-84-86 22:38:00 Test Item Value Reference Range Interpretation Comments Platelet (test code = Platelet) 200 133-450 [facility] [place]anoNgenimlKKAVBUVOCC2682-76-70 22:38:00 Test Item Value Reference Range Interpretation Comments RDW (test code = RDW) 14.4 11.5-14.5 [facility] [place]anoXctcaqqWPTQBEQADY6738-54-55 22:38:00 Test Item Value Reference Range Interpretation Comments MPV (test code = MPV) 9.1 7.4-10.4 [place] [address]-12-13 22:38:00 Test Item Value Reference Range Interpretation Comments WBC (test code = WBC) 14.0 3.7-10.4 [facility] [place]anoEkcdxorJRJJRNJDMG9386-99-06 22:38:00 Test Item Value Reference Range Interpretation Comments RBC (test code = RBC) 5.18 4.70-6.10 [facility] [place]anoKejghtyVZLEZGKQNR1573-70-56 22:38:00 Test Item Value Reference Range Interpretation Comments Hgb (test code = Hgb) 14.2 14.0-18.0 [facility] [place]anoOysswykYNTTQRTGMO9891-82-15 22:38:00 Test Item Value Reference Range Interpretation Comments Hct (test code = Hct) 44.2 42.0-54.0 [facility] [place]anoOcassnfNIKVIYLYFC8390-42-42 22:38:00 Test Item Value Reference Range Interpretation Comments MCV (test code = MCV) 85.3 80.0-94.0 [facility] [place]anoThyngwqXLPUUVGTES7741-59-74 22:38:00 Test Item Value Reference Range Interpretation Comments Basophils (test code = 0.2 See_Comment [Aut omated message] The Basophils) system which ge nerated this result tra nsmitted reference range : <=1.0. The reference r annemarie was not used to int erpret this result as normal/abnormal . [facility] [place]anoGvjvwfsANEBVNSMAU1479-00-32 22:38:00 Test Item Value Reference Range Interpretation Comments Eosinophils (test code = 0.1 See_Comment [A utomated message] The Eosinophils) system which ge nerated this result tra nsmitted reference range : <=4.0. The reference r annemarie was not used to int erpret this result as normal/abnormal . [facility] [place]anoNfkqsjyPEQVXURBUX3656-34-52 22:38:00 Test Item Value Reference Range Interpretation Comments Monocytes (test code = Monocytes) 2.7 2.0-12.0 [facility] [place]anoItqxihjISBSMFUAHQ8051-39-49 22:38:00 Test Item Value Reference Range Interpretation Comments Monocytes # (test code 0.4 See_Comment [Aut omated message] The = Monocytes #) system which generated this result tra nsmitted reference range : <=0.8. The reference r annemarie was not used to int erpret this result as normal/abnormal . [facility] [place]anoOlakpbpCWQEMPWIIM8117-41-09 22:38:00 Test Item Value Reference Range Interpretation Comments Lymphocytes # (test code = Lymphocytes 0.6 1.0-5.5 #) [facility] [place]anoGymcnzxEYVPVYSCQO5947-08-58 22:38:00 Test Item Value Reference Range Interpretation Comments Neutrophils # (test code = Neutrophils 13.0 1.5-8.1 #) [facility] [place]anoUfhnqrsBDEQTRMIIV0408-92-25 22:38:00 Test Item Value Reference Range Interpretation Comments Lymphocytes (test code = Lymphocytes) 4.1 20.0-40.0 [facility] [place]anoAsfasajIFIAWSYCHN9676-94-04 22:38:00 Test Item Value Reference Range Interpretation Comments Eosinophils # (test code 0.0 See_Comment [A utomated message] The = Eosinophils #) system whic h generated this result tra nsmitted reference range : <=0.5. The reference r annemarie was not used to int erpret this result as normal/abnormal . [facility] PlanoCrlroayKBOVYEBZDC9784-37-39 22:38:00 Test Item Value Reference Range Interpretation Comments Basophils # (test code 0.0 See_Comment [Aut omated message] The = Basophils #) system which generated this result tra nsmitted reference range : <=0.2. The reference r annemarie was not used to int erpret this result as normal/abnormal . [facility] [place]anoKnvthkoBSHGIOHUXZ8593-42-94 22:38:00 Test Item Value Reference Range Interpretation Comments RBC Morph (test code = Normal (04/12/18 4:38 RBC Morph) PM) [facility] [place]anoFigvhcoOFCQQFDCAT9988-17-42 22:38:00 Test Item Value Reference Range Interpretation Comments Plt Morph (test code = Normal (04/12/18 4:38 Plt Morph) PM) [facility]2017-01-01 03:21:00 Test Item Value Reference Range Interpretation Comments Total CK (test code = Total CK) 3725 12-191 [facility] HospitalFfpqhnsGGNGZCVKFNFR3880-08-83 03:21:00 Test Item Value Reference Range Interpretation Comments AGAP (test code = AGAP) 14.1 10.0-20.0 [facility] HospitalRvffzphEIUQMAGQBUAY5352-75-14 03:21:00 Test Item Value Reference Range Interpretation Comments B/C Ratio (test code = B/C Ratio) 11 6-25 [facility] HospitalVhhrmycFPHEKJUPMUNY7921-01-98 03:21:00 Test Item Value Reference Range Interpretation Comments Globulin (test code = Globulin) 3.2 2.7-4.2 [facility] HospitalSsaanieEQALJBTNRHLY3513-83-47 03:21:00 Test Item Value Reference Range Interpretation Comments A/G Ratio (test code = A/G Ratio) 1.3 0.7-1.6 [facility] HospitalGgvqvxtOEELEXSSGBOL7489-70-84 03:21:00 Test Item Value Reference Range Interpretation Comments Bili Total (test code = Bili Total) 0.4 0.2-1.3 [facility] HospitalBpvwokuYULSXCAPLZFS2251-68-09 03:21:00 Test Item Value Reference Range Interpretation Comments eGFR (test code = eGFR) 102 [facility] HospitalGxlerxqMSMNADHQWPWA2450-64-07 03:21:00 Test Item Value Reference Range Interpretation Comments Albumin Lvl (test code = Albumin Lvl) 4.2 3.5-5.0 [facility] HospitalLzoplzfEFKYZGTFIFMY9398-02-37 03:21:00 Test Item Value Reference Range Interpretation Comments Alk Phos (test code = Alk Phos) 48 39-136 [facility] HospitalQwodqhuSOOUOBKWYUYM7913-82-41 03:21:00 Test Item Value Reference Range Interpretation Comments AST (test code = AST) 144 See_Comment [Auto mated message] The system which ge nerated this result transmit abdelrahman reference range : <=37. The reference range was not used to interpr et this result as gurpreet l/abnormal. [facility] HospitalNvresxdVTOFIQPMQUEJ0871-66-22 03:21:00 Test Item Value Reference Range Interpretation Comments Glucose Lvl (test code = Glucose Lvl) 75 70-99 [facility] HospitalDirvfyhIVZDTYGHXQKH3949-33-80 03:21:00 Test Item Value Reference Range Interpretation Comments BUN (test code = BUN) 11 7-22 [facility] HospitalAtexbnaJPHBKJDOFTVE2655-83-15 03:21:00 Test Item Value Reference Range Interpretation Comments Potassium Lvl (test code = Potassium 4.1 3.5-5.1 Lvl) [facility] HospitalPwicnqpVPDXLZYXVAKA0979-91-38 03:21:00 Test Item Value Reference Range Interpretation Comments Creatinine Lvl (test code = Creatinine 1.00 0.50-1.40 Lvl) [facility] HospitalRsrjexwVJOPPHIGRCBT1806-03-72 03:21:00 Test Item Value Reference Range Interpretation Comments Sodium Lvl (test code = Sodium Lvl) 140 135-145 [facility] HospitalMmfvakiPPQCPEHTBHYG4684-07-58 03:21:00 Test Item Value Reference Range Interpretation Comments Chloride Lvl (test code = Chloride Lvl) 106 95-109 [facility] HospitalFzklmspITHGWJFWAGDU4302-24-58 03:21:00 Test Item Value Reference Range Interpretation Comments CO2 (test code = CO2) 24 24-32 [facility] HospitalTqxeypjNHZOPEWMMGSP7913-09-00 03:21:00 Test Item Value Reference Range Interpretation Comments Total Protein (test code = Total 7.4 6.4-8.4 Protein) [facility] HospitalMxfbucqIUTRSFQAOIQH3739-80-87 03:21:00 Test Item Value Reference Range Interpretation Comments Calcium Lvl (test code = Calcium Lvl) 9.1 8.5-10.5 [facility] HospitalDdacdbzBXJVVDAYQVFW0312-41-80 03:21:00 Test Item Value Reference Range Interpretation Comments ALT (test code = ALT) 52 See_Comment [Auto mated message] The system which ge nerated this result transmit abdelrahman reference range : <=65. The reference range was not used to interpr et this result as gurpreet l/abnormal. [facility]anoFyowqicVQESOSBFZH8786-48-51 03:21:00 Test Item Value Reference Range Interpretation Comments MCV (test code = MCV) 86.0 80.0-94.0 [facility]anoGydqikgTTKZLWUTKT2348-06-84 03:21:00 Test Item Value Reference Range Interpretation Comments MCH (test code = MCH) 29.7 pg 27.0-31.0 [facility]anoOyesawlIWOUPQRLOZ0081-75-14 03:21:00 Test Item Value Reference Range Interpretation Comments Hct (test code = Hct) 41.0 42.0-54.0 [facility]anoZbdexgeTBCPJRMUIF3441-38-05 03:21:00 Test Item Value Reference Range Interpretation Comments RBC (test code = RBC) 4.77 4.70-6.10 [facility]anoVythwibQCHSEVOVWL4108-36-35 03:21:00 Test Item Value Reference Range Interpretation Comments WBC (test code = WBC) 8.8 3.7-10.4 [facility]anoVntpejlXIBPPYIBMV0597-49-45 03:21:00 Test Item Value Reference Range Interpretation Comments Hgb (test code = Hgb) 14.2 14.0-18.0 [facility]anoCwvkcdyNABOMFCXPO4868-64-01 03:21:00 Test Item Value Reference Range Interpretation Comments Platelet (test code = Platelet) 141 133-450 [facility] PlanoOtbgincFHYUSXXMIV8661-56-72 03:21:00 Test Item Value Reference Range Interpretation Comments MCHC (test code = MCHC) 34.5 32.0-36.0 [facility]anoWnxczrhDDMWPXVMAX1246-79-01 03:21:00 Test Item Value Reference Range Interpretation Comments RDW (test code = RDW) 13.5 11.5-14.5 [facility]anoTswhifuTKNEQSXRNI0292-75-29 03:21:00 Test Item Value Reference Range Interpretation Comments MPV (test code = MPV) 8.9 7.4-10.4 [facility]anoOhcwvxkNVTSLLYTIW1335-24-90 03:21:00 Test Item Value Reference Range Interpretation Comments Lymphocytes (test code = Lymphocytes) 21.1 20.0-40.0 [facility] PlanoZpyzpamJCKBVTJRWW8198-57-29 03:21:00 Test Item Value Reference Range Interpretation Comments Monocytes (test code = Monocytes) 11.7 2.0-12.0 [facility]anoUmwkqkvTEYSWDWZSX5836-96-16 03:21:00 Test Item Value Reference Range Interpretation Comments Lymphocytes # (test code = Lymphocytes 1.8 1.0-5.5 #) [facility]anoJzdyqfxEZRHTADLEX6212-58-44 03:21:00 Test Item Value Reference Range Interpretation Comments Segs-Bands # (test code = Segs-Bands #) 5.7 1.5-8.1 [facility]anoNxlfimkCUERSRDBMG3494-05-92 03:21:00 Test Item Value Reference Range Interpretation Comments Eosinophils (test code = 1.7 See_Comment [A utomated message] The Eosinophils) system which ge nerated this result tra nsmitted reference range : <=4.0. The reference r annemarie was not used to int erpret this result as normal/abnormal . [facility]anoGcnsygqUQIUMRLKMG4838-57-34 03:21:00 Test Item Value Reference Range Interpretation Comments Basophils (test code = 0.8 See_Comment [Aut omated message] The Basophils) system which ge nerated this result tra nsmitted reference range : <=1.0. The reference r annemarie was not used to int erpret this result as normal/abnormal . [facility]anoEdxtuytFZOJVRBUQP6429-61-84 03:21:00 Test Item Value Reference Range Interpretation Comments Basophils # (test code 0.1 See_Comment [Aut omated message] The = Basophils #) system which generated this result tra nsmitted reference range : <=0.2. The reference r annemarie was not used to int erpret this result as normal/abnormal . [facility]anoSaqwtafSQDGYRSRBO1622-39-91 03:21:00 Test Item Value Reference Range Interpretation Comments Monocytes # (test code 1.0 See_Comment [Aut omated message] The = Monocytes #) system which generated this result tra nsmitted reference range : <=0.8. The reference r annemarie was not used to int erpret this result as normal/abnormal . [facility]anoJkpmpxaUJXJHZVJRX1787-92-33 03:21:00 Test Item Value Reference Range Interpretation Comments Eosinophils # (test code 0.2 See_Comment [A utomated message] The = Eosinophils #) system whic h generated this result tra nsmitted reference range : <=0.5. The reference r annemarie was not used to int erpret this result as normal/abnormal . [facility]anoSfvolhoOXTZQXIEEC7598-29-41 03:21:00 Test Item Value Reference Range Interpretation Comments Segs (test code = Segs) 64.7 45.0-75.0 [facility]CARDITR[facility] HOSPITALKKJIDKI5394-33-82 03:21:00 Test Item Value Reference Range Interpretation Comments Total CK (test code = Total CK) 3725 12-191 [facility] HospitalNjwigyvKXPUBIESOOGT7700-95-62 03:21:00 Test Item Value Reference Range Interpretation Comments AGAP (test code = AGAP) 14.1 10.0-20.0 [facility] HospitalJtosveyTZIMWXQSHFCW7232-08-55 03:21:00 Test Item Value Reference Range Interpretation Comments B/C Ratio (test code = B/C Ratio) 11 6-25 [facility] HospitalJebtcmaHQMKQEXMHHXX4952-28-07 03:21:00 Test Item Value Reference Range Interpretation Comments Globulin (test code = Globulin) 3.2 2.7-4.2 [facility] HospitalDkvmbdxQYVHQFGGVKFV4775-95-53 03:21:00 Test Item Value Reference Range Interpretation Comments A/G Ratio (test code = A/G Ratio) 1.3 0.7-1.6 [facility] HospitalNeazxbcPPWPWNUJSRMU7101-89-73 03:21:00 Test Item Value Reference Range Interpretation Comments Bili Total (test code = Bili Total) 0.4 0.2-1.3 [facility] HospitalNqnjqzaDJJWCBFTVNDI4626-55-75 03:21:00 Test Item Value Reference Range Interpretation Comments eGFR (test code = eGFR) 102 [facility] HospitalArrdznjXKLAUFQUKNCW4077-75-22 03:21:00 Test Item Value Reference Range Interpretation Comments Albumin Lvl (test code = Albumin Lvl) 4.2 3.5-5.0 [facility] HospitalLhzgtihIZFMTUKAVFIS5580-73-08 03:21:00 Test Item Value Reference Range Interpretation Comments Alk Phos (test code = Alk Phos) 48 39-136 [facility] HospitalNtkzbqmLECXJUVRQECT2384-69-05 03:21:00 Test Item Value Reference Range Interpretation Comments AST (test code = AST) 144 See_Comment [Auto mated message] The system which ge nerated this result transmit abdelrahman reference range : <=37. The reference range was not used to interpr et this result as gurpreet l/abnormal. [facility] HospitalUugkurkRDKZRNXAXYLR0406-47-60 03:21:00 Test Item Value Reference Range Interpretation Comments Glucose Lvl (test code = Glucose Lvl) 75 70-99 [facility] HospitalOggtopvSCVXMDGRPVHE6736-50-04 03:21:00 Test Item Value Reference Range Interpretation Comments BUN (test code = BUN) 11 7- [facility] HospitalQumctwhVAZLGAWITWOL5413-00-08 03:21:00 Test Item Value Reference Range Interpretation Comments Potassium Lvl (test code = Potassium 4.1 3.5-5.1 Lvl) [facility] HospitalXgulrghWYLGCMQGHYUM8125-51-20 03:21:00 Test Item Value Reference Range Interpretation Comments Creatinine Lvl (test code = Creatinine 1.00 0.50-1.40 Lvl) [facility] HospitalJnlhvliNTORRNEYHLTO7328-65-23 03:21:00 Test Item Value Reference Range Interpretation Comments Sodium Lvl (test code = Sodium Lvl) 140 135-145 [facility] HospitalKtakzqoKOAGLJPOVHTC6902-34-94 03:21:00 Test Item Value Reference Range Interpretation Comments Chloride Lvl (test code = Chloride Lvl) 106 95-109 [facility] HospitalYtpxixyKWEQGDNTWYTY7551-02-54 03:21:00 Test Item Value Reference Range Interpretation Comments CO2 (test code = CO2) 24 24-32 [facility] HospitalZxwdvntOZQXLXABNVGI0437-62-44 03:21:00 Test Item Value Reference Range Interpretation Comments Total Protein (test code = Total 7.4 6.4-8.4 Protein) [facility] HospitalOgxnziuPACHBJFKRMZO1068-07-70 03:21:00 Test Item Value Reference Range Interpretation Comments Calcium Lvl (test code = Calcium Lvl) 9.1 8.5-10.5 [facility] HospitalIrtjsgdPURMVDKARRAI3591-82-15 03:21:00 Test Item Value Reference Range Interpretation Comments ALT (test code = ALT) 52 See_Comment [Auto mated message] The system which ge nerated this result transmit abdelrahman reference range : <=65. The reference range was not used to interpr et this result as gurpreet l/abnormal. [facility]anoZzgdjepRISTJMGXRW3874-35-69 03:21:00 Test Item Value Reference Range Interpretation Comments MCV (test code = MCV) 86.0 80.0-94.0 [facility]anoPukovgaHKQXTZVNFU8214-77-95 03:21:00 Test Item Value Reference Range Interpretation Comments MCH (test code = MCH) 29.7 pg 27.0-31.0 [facility]anoPzusgnxPDKIPYCGPJ7380-97-98 03:21:00 Test Item Value Reference Range Interpretation Comments Hct (test code = Hct) 41.0 42.0-54.0 [facility]anoKpmwxyjNKEZILTBIV4412-38-92 03:21:00 Test Item Value Reference Range Interpretation Comments RBC (test code = RBC) 4.77 4.70-6.10 [facility] PlanoXciwatlGKTESEOCQG6811-03-63 03:21:00 Test Item Value Reference Range Interpretation Comments WBC (test code = WBC) 8.8 3.7-10.4 [facility] PlanoLahlglySCPETRVXAT3619-71-58 03:21:00 Test Item Value Reference Range Interpretation Comments Hgb (test code = Hgb) 14.2 14.0-18.0 [facility] PlanoRguuzjoBPLWDUDVOQ3297-45-26 03:21:00 Test Item Value Reference Range Interpretation Comments Platelet (test code = Platelet) 141 133-450 [facility] PlanoLskoroeBMXBEDGRDN3334-37-51 03:21:00 Test Item Value Reference Range Interpretation Comments MCHC (test code = MCHC) 34.5 32.0-36.0 [facility] PlanoYguizxhDLTXKXPDMC2862-55-20 03:21:00 Test Item Value Reference Range Interpretation Comments RDW (test code = RDW) 13.5 11.5-14.5 [facility] PlanoRfzasrwSTHPCNMOOI6057-36-90 03:21:00 Test Item Value Reference Range Interpretation Comments MPV (test code = MPV) 8.9 7.4-10.4 [facility] PlanoSmrjymtENVSPUISKE8422-19-57 03:21:00 Test Item Value Reference Range Interpretation Comments Lymphocytes (test code = Lymphocytes) 21.1 20.0-40.0 [facility] PlanoQfomfvcJVTVQUCKFU5611-92-56 03:21:00 Test Item Value Reference Range Interpretation Comments Monocytes (test code = Monocytes) 11.7 2.0-12.0 [facility] PlanoStcrgrcGZYXGLDJWC7434-84-60 03:21:00 Test Item Value Reference Range Interpretation Comments Lymphocytes # (test code = Lymphocytes 1.8 1.0-5.5 #) [facility] PlanoAbridmrIBYWQNJNLF0251-75-94 03:21:00 Test Item Value Reference Range Interpretation Comments Segs-Bands # (test code = Segs-Bands #) 5.7 1.5-8.1 [facility]anoQaaqvolBJFQTHBKXW8969-68-80 03:21:00 Test Item Value Reference Range Interpretation Comments Eosinophils (test code = 1.7 See_Comment [A utomated message] The Eosinophils) system which ge nerated this result tra nsmitted reference range : <=4.0. The reference r annemarie was not used to int erpret this result as normal/abnormal . [facility] PlanoKoretirTWFSULKCIX3722-10-70 03:21:00 Test Item Value Reference Range Interpretation Comments Basophils (test code = 0.8 See_Comment [Aut omated message] The Basophils) system which ge nerated this result tra nsmitted reference range : <=1.0. The reference r annemarie was not used to int erpret this result as normal/abnormal . [facility]anoVgrphxpFKHXZGGYIG2744-56-64 03:21:00 Test Item Value Reference Range Interpretation Comments Basophils # (test code 0.1 See_Comment [Aut omated message] The = Basophils #) system which generated this result tra nsmitted reference range : <=0.2. The reference r annemarie was not used to int erpret this result as normal/abnormal . [facility]anoJbiarvqCXSHKGZAMR2307-62-50 03:21:00 Test Item Value Reference Range Interpretation Comments Monocytes # (test code 1.0 See_Comment [Aut omated message] The = Monocytes #) system which generated this result tra nsmitted reference range : <=0.8. The reference r annemarie was not used to int erpret this result as normal/abnormal . [facility] PlanoQeltvogXPRIUSTVIH5507-68-27 03:21:00 Test Item Value Reference Range Interpretation Comments Eosinophils # (test code 0.2 See_Comment [A utomated message] The = Eosinophils #) system whic h generated this result tra nsmitted reference range : <=0.5. The reference r annemarie was not used to int erpret this result as normal/abnormal . [facility] PlanoBogomyhBUIXWSMZJO6198-52-65 03:21:00 Test Item Value Reference Range Interpretation Comments Segs (test code = Segs) 64.7 45.0-75.0 [facility]2017-01-01 03:21:00 Test Item Value Reference Range Interpretation Comments Total CK (test code = Total CK) 3725 12-191 [facility] HospitalEdiuhghLHTRJJVWHUWN8959-56-14 03:21:00 Test Item Value Reference Range Interpretation Comments AGAP (test code = AGAP) 14.1 10.0-20.0 [facility] HospitalJbowsylANCBLKXXOCEX9854-16-03 03:21:00 Test Item Value Reference Range Interpretation Comments B/C Ratio (test code = B/C Ratio) 11 6-25 [facility] HospitalXaiwparCGGHMXGETJJZ8399-33-05 03:21:00 Test Item Value Reference Range Interpretation Comments Globulin (test code = Globulin) 3.2 2.7-4.2 [facility] HospitalHxaewwySTHTJENPUQTH6705-87-45 03:21:00 Test Item Value Reference Range Interpretation Comments A/G Ratio (test code = A/G Ratio) 1.3 0.7-1.6 [facility] HospitalLkqnzkoIOHWOHAYOPBK1542-55-52 03:21:00 Test Item Value Reference Range Interpretation Comments Bili Total (test code = Bili Total) 0.4 0.2-1.3 [facility] HospitalEhymjayOZOESWHDLUYK2625-69-39 03:21:00 Test Item Value Reference Range Interpretation Comments eGFR (test code = eGFR) 102 [facility] HospitalKxskfllEIFFAQFCYRYW0444-91-88 03:21:00 Test Item Value Reference Range Interpretation Comments Albumin Lvl (test code = Albumin Lvl) 4.2 3.5-5.0 [facility] HospitalTvvwnhsFOAELALVSZPZ8756-91-02 03:21:00 Test Item Value Reference Range Interpretation Comments Alk Phos (test code = Alk Phos) 48 39-136 [facility] HospitalUvjoyraMZXXTBNGUFFO6646-70-85 03:21:00 Test Item Value Reference Range Interpretation Comments AST (test code = AST) 144 See_Comment [Auto mated message] The system which ge nerated this result transmit abdelrahman reference range : <=37. The reference range was not used to interpr et this result as gurpreet l/abnormal. [facility] HospitalPkzhooqGVVPJIZMGVXV5392-42-90 03:21:00 Test Item Value Reference Range Interpretation Comments Glucose Lvl (test code = Glucose Lvl) 75 70-99 [facility] HospitalHaurkriWWRKHMUQHNVU9825-91-21 03:21:00 Test Item Value Reference Range Interpretation Comments BUN (test code = BUN) 11 7-22 [facility] HospitalGotesumVUCIYTSKTTBZ1935-39-88 03:21:00 Test Item Value Reference Range Interpretation Comments Potassium Lvl (test code = Potassium 4.1 3.5-5.1 Lvl) [facility] HospitalNhsmyvbLYWCLKVICRRV9652-16-30 03:21:00 Test Item Value Reference Range Interpretation Comments Creatinine Lvl (test code = Creatinine 1.00 0.50-1.40 Lvl) [facility] HospitalCyqhegdKWJHCFPDOQAG5267-25-99 03:21:00 Test Item Value Reference Range Interpretation Comments Sodium Lvl (test code = Sodium Lvl) 140 135-145 [facility] HospitalEoshomyJYSZSKAGRUHN8573-04-33 03:21:00 Test Item Value Reference Range Interpretation Comments Chloride Lvl (test code = Chloride Lvl) 106 95-109 [facility] HospitalJuqspyzQZURQQXPWRFN2023-39-17 03:21:00 Test Item Value Reference Range Interpretation Comments CO2 (test code = CO2) 24 24-32 [facility] HospitalUtfsljhTNUTYZOCNDMC4901-52-53 03:21:00 Test Item Value Reference Range Interpretation Comments Total Protein (test code = Total 7.4 6.4-8.4 Protein) [facility] HospitalZvaebufHJYSDPGWSPTY0414-16-38 03:21:00 Test Item Value Reference Range Interpretation Comments Calcium Lvl (test code = Calcium Lvl) 9.1 8.5-10.5 [facility] HospitalSmbpdvoTZPDUMLTQHRX8884-15-81 03:21:00 Test Item Value Reference Range Interpretation Comments ALT (test code = ALT) 52 See_Comment [Auto mated message] The system which ge nerated this result transmit abdelrahman reference range : <=65. The reference range was not used to interpr et this result as gurpreet l/abnormal. [facility]anoCbeuxypUJKXMLNQGJ1931-71-84 03:21:00 Test Item Value Reference Range Interpretation Comments MCV (test code = MCV) 86.0 80.0-94.0 [facility]anoCjnkmqbSWEZNBJFBP2329-61-17 03:21:00 Test Item Value Reference Range Interpretation Comments MCH (test code = MCH) 29.7 pg 27.0-31.0 [facility]anoPnyfkveYQEWIXDCEX8848-07-77 03:21:00 Test Item Value Reference Range Interpretation Comments Hct (test code = Hct) 41.0 42.0-54.0 [facility] PlanoUpqlnffELHXYBHUNN3753-22-57 03:21:00 Test Item Value Reference Range Interpretation Comments RBC (test code = RBC) 4.77 4.70-6.10 [facility]anoOlrqigsRMKHTZEURA5091-37-12 03:21:00 Test Item Value Reference Range Interpretation Comments WBC (test code = WBC) 8.8 3.7-10.4 [facility] PlanoMyvcbnxQUTTTZXNLE7891-42-03 03:21:00 Test Item Value Reference Range Interpretation Comments Hgb (test code = Hgb) 14.2 14.0-18.0 [facility]anoAkcqgtvDEMHMJOPXB9990-56-59 03:21:00 Test Item Value Reference Range Interpretation Comments Platelet (test code = Platelet) 141 133-450 [facility] PlanoNdqymmvPEOOEDHOOX9211-13-69 03:21:00 Test Item Value Reference Range Interpretation Comments MCHC (test code = MCHC) 34.5 32.0-36.0 [facility] PlanoBezfdlqQXWEEDEHGP2730-97-56 03:21:00 Test Item Value Reference Range Interpretation Comments RDW (test code = RDW) 13.5 11.5-14.5 [facility]anoAvhdcmuTUGMWXMEDK4393-66-52 03:21:00 Test Item Value Reference Range Interpretation Comments MPV (test code = MPV) 8.9 7.4-10.4 [facility] PlanoAqkllnlDTSFOTPHMW7954-58-02 03:21:00 Test Item Value Reference Range Interpretation Comments Lymphocytes (test code = Lymphocytes) 21.1 20.0-40.0 [facility] PlanoBwsthpxTPXHSZKQQK7784-23-09 03:21:00 Test Item Value Reference Range Interpretation Comments Monocytes (test code = Monocytes) 11.7 2.0-12.0 [facility]anoVwcwmpqPFSIFXLHKY8877-83-50 03:21:00 Test Item Value Reference Range Interpretation Comments Lymphocytes # (test code = Lymphocytes 1.8 1.0-5.5 #) [facility] PlanoGdfpuijBXDBGDVNHV7921-52-36 03:21:00 Test Item Value Reference Range Interpretation Comments Segs-Bands # (test code = Segs-Bands #) 5.7 1.5-8.1 [facility] PlanoUeppukuYPZPZUZPBK5837-29-42 03:21:00 Test Item Value Reference Range Interpretation Comments Eosinophils (test code = 1.7 See_Comment [A utomated message] The Eosinophils) system which ge nerated this result tra nsmitted reference range : <=4.0. The reference r annemarie was not used to int erpret this result as normal/abnormal . [facility] PlanoYykqlqwINZGIPHPCQ7566-24-03 03:21:00 Test Item Value Reference Range Interpretation Comments Basophils (test code = 0.8 See_Comment [Aut omated message] The Basophils) system which ge nerated this result tra nsmitted reference range : <=1.0. The reference r annemarie was not used to int erpret this result as normal/abnormal . [facility] PlanoTaocfpfAAFGVRJJEZ4959-15-92 03:21:00 Test Item Value Reference Range Interpretation Comments Basophils # (test code 0.1 See_Comment [Aut omated message] The = Basophils #) system which generated this result tra nsmitted reference range : <=0.2. The reference r annemarie was not used to int erpret this result as normal/abnormal . [facility]anoOqqpwffVNHGRSFYLO2300-52-03 03:21:00 Test Item Value Reference Range Interpretation Comments Monocytes # (test code 1.0 See_Comment [Aut omated message] The = Monocytes #) system which generated this result tra nsmitted reference range : <=0.8. The reference r annemarie was not used to int erpret this result as normal/abnormal . [facility]anoXdgldkrGYRUXLWSYA4274-68-93 03:21:00 Test Item Value Reference Range Interpretation Comments Eosinophils # (test code 0.2 See_Comment [A utomated message] The = Eosinophils #) system whic h generated this result tra nsmitted reference range : <=0.5. The reference r annemarie was not used to int erpret this result as normal/abnormal . [facility] PlanoMxbgbnxDYWCNYKAXP0364-39-26 03:21:00 Test Item Value Reference Range Interpretation Comments Segs (test code = Segs) 64.7 45.0-75.0 [facility]2017-01-01 03:21:00 Test Item Value Reference Range Interpretation Comments Total CK (test code = Total CK) 3725 12-191 [facility] HospitalGfbmoxbCXJUIREQHFJP7824-11-65 03:21:00 Test Item Value Reference Range Interpretation Comments AGAP (test code = AGAP) 14.1 10.0-20.0 [facility] HospitalHkmebuwSWDLBTUFALYY9616-98-03 03:21:00 Test Item Value Reference Range Interpretation Comments B/C Ratio (test code = B/C Ratio) 11 6-25 [facility] HospitalIbjxapnKPYEMAYFTAUS8178-39-79 03:21:00 Test Item Value Reference Range Interpretation Comments Globulin (test code = Globulin) 3.2 2.7-4.2 [facility] HospitalWfirzzlEWZFUSBCFFTH3059-80-27 03:21:00 Test Item Value Reference Range Interpretation Comments A/G Ratio (test code = A/G Ratio) 1.3 0.7-1.6 [facility] HospitalQwggqkbTJQXYNMCXMRI5854-28-81 03:21:00 Test Item Value Reference Range Interpretation Comments Bili Total (test code = Bili Total) 0.4 0.2-1.3 [facility] HospitalDagchluUPSMTOOPMFZJ8171-58-15 03:21:00 Test Item Value Reference Range Interpretation Comments eGFR (test code = eGFR) 102 [facility] HospitalOsiosscUCSMRCRLMMER7623-60-02 03:21:00 Test Item Value Reference Range Interpretation Comments Albumin Lvl (test code = Albumin Lvl) 4.2 3.5-5.0 [facility] HospitalLvqaqvtCVJYTWWKBMOA7370-14-57 03:21:00 Test Item Value Reference Range Interpretation Comments Alk Phos (test code = Alk Phos) 48 39-136 [facility] HospitalDpboolaHCBMALZYEWRR7043-75-92 03:21:00 Test Item Value Reference Range Interpretation Comments AST (test code = AST) 144 See_Comment [Auto mated message] The system which ge nerated this result transmit abdelrahman reference range : <=37. The reference range was not used to interpr et this result as gurpreet l/abnormal. [facility] HospitalPcbhqmjRXPTGNHIZBIZ4753-43-55 03:21:00 Test Item Value Reference Range Interpretation Comments Glucose Lvl (test code = Glucose Lvl) 75 70-99 [facility] HospitalKrjneibOZFFSPEGEUJQ8349-45-77 03:21:00 Test Item Value Reference Range Interpretation Comments BUN (test code = BUN) 11 7-22 [facility] HospitalUaqzbcaEGHGLVVVMDHI3173-32-58 03:21:00 Test Item Value Reference Range Interpretation Comments Potassium Lvl (test code = Potassium 4.1 3.5-5.1 Lvl) [facility] HospitalTpydiuaVQWTKQCQAXHX1082-07-43 03:21:00 Test Item Value Reference Range Interpretation Comments Creatinine Lvl (test code = Creatinine 1.00 0.50-1.40 Lvl) [facility] HospitalGavpxrtKUNQCRYVWOFH8602-21-06 03:21:00 Test Item Value Reference Range Interpretation Comments Sodium Lvl (test code = Sodium Lvl) 140 135-145 [facility] HospitalHsgdlntIWQPNXPJVRLL3788-08-76 03:21:00 Test Item Value Reference Range Interpretation Comments Chloride Lvl (test code = Chloride Lvl) 106 95-109 [facility] HospitalVlvgvmbPNJCZYTEVUXC6048-68-21 03:21:00 Test Item Value Reference Range Interpretation Comments CO2 (test code = CO2) 24 24-32 [facility] HospitalQlmrzboJDWXLDVQVJLW2306-87-39 03:21:00 Test Item Value Reference Range Interpretation Comments Total Protein (test code = Total 7.4 6.4-8.4 Protein) [facility] HospitalZdfjlyeUVFATMKMHNJM8489-61-33 03:21:00 Test Item Value Reference Range Interpretation Comments Calcium Lvl (test code = Calcium Lvl) 9.1 8.5-10.5 [facility] HospitalFwapgjgCYKEHCHMPIUN1765-19-69 03:21:00 Test Item Value Reference Range Interpretation Comments ALT (test code = ALT) 52 See_Comment [Auto mated message] The system which ge nerated this result transmit abdelrahman reference range : <=65. The reference range was not used to interpr et this result as gurpreet l/abnormal. [facility]CwkuzpzVFOWULFNWT5976-28-68 03:21:00 Test Item Value Reference Range Interpretation Comments MCV (test code = MCV) 86.0 80.0-94.0 [facility]anoAabocqzEAHWANWCTI8602-32-90 03:21:00 Test Item Value Reference Range Interpretation Comments MCH (test code = MCH) 29.7 pg 27.0-31.0 [facility]anoVydcxwbWJYHQQZXLD1388-41-83 03:21:00 Test Item Value Reference Range Interpretation Comments Hct (test code = Hct) 41.0 42.0-54.0 [facility]anoYeqjnamNJYFHRAYDY7475-98-22 03:21:00 Test Item Value Reference Range Interpretation Comments RBC (test code = RBC) 4.77 4.70-6.10 [facility]anoTvdyoxlGWUNUZTNKD1436-24-18 03:21:00 Test Item Value Reference Range Interpretation Comments WBC (test code = WBC) 8.8 3.7-10.4 [facility]anoPrwkcbkNSJYUNVHCV6039-52-09 03:21:00 Test Item Value Reference Range Interpretation Comments Hgb (test code = Hgb) 14.2 14.0-18.0 [facility]anoMxmaxrrWAZHKRWNFV2647-08-00 03:21:00 Test Item Value Reference Range Interpretation Comments Platelet (test code = Platelet) 141 133-450 [facility]anoDpybauaIRAXGMBTQT3443-52-67 03:21:00 Test Item Value Reference Range Interpretation Comments MCHC (test code = MCHC) 34.5 32.0-36.0 [facility]anoAausxfbDJLNMARXBB3682-00-30 03:21:00 Test Item Value Reference Range Interpretation Comments RDW (test code = RDW) 13.5 11.5-14.5 [facility]anoBpypidpDNSTXAYHAD4753-41-75 03:21:00 Test Item Value Reference Range Interpretation Comments MPV (test code = MPV) 8.9 7.4-10.4 [facility]anoVnzxdoiWFBPEDHBBK8792-24-86 03:21:00 Test Item Value Reference Range Interpretation Comments Lymphocytes (test code = Lymphocytes) 21.1 20.0-40.0 [facility]anoCpgypinTZJUNJJFXT4509-51-17 03:21:00 Test Item Value Reference Range Interpretation Comments Monocytes (test code = Monocytes) 11.7 2.0-12.0 [facility]anoIxjojxqLHEWXHZCBZ6591-05-01 03:21:00 Test Item Value Reference Range Interpretation Comments Lymphocytes # (test code = Lymphocytes 1.8 1.0-5.5 #) [facility]anoRbywxhwSAWHWGVWKQ4219-22-84 03:21:00 Test Item Value Reference Range Interpretation Comments Segs-Bands # (test code = Segs-Bands #) 5.7 1.5-8.1 [place] 278547-01-01 03:21:00 Test Item Value Reference Range Interpretation Comments Eosinophils (test code = 1.7 See_Comment [A utomated message] The Eosinophils) system which ge nerated this result tra nsmitted reference range : <=4.0. The reference r annemarie was not used to int erpret this result as normal/abnormal . [facility]anoAjzbjbnTGODGGLDZY0760-43-13 03:21:00 Test Item Value Reference Range Interpretation Comments Basophils (test code = 0.8 See_Comment [Aut omated message] The Basophils) system which ge nerated this result tra nsmitted reference range : <=1.0. The reference r annemarie was not used to int erpret this result as normal/abnormal . [facility]anoKmdjzzpADUYDBBNJR7507-88-57 03:21:00 Test Item Value Reference Range Interpretation Comments Basophils # (test code 0.1 See_Comment [Aut omated message] The = Basophils #) system which generated this result tra nsmitted reference range : <=0.2. The reference r annemarie was not used to int erpret this result as normal/abnormal . [facility]anoLdxopwxTJEDMCHCIX2806-98-18 03:21:00 Test Item Value Reference Range Interpretation Comments Monocytes # (test code 1.0 See_Comment [Aut omated message] The = Monocytes #) system which generated this result tra nsmitted reference range : <=0.8. The reference r annemarie was not used to int erpret this result as normal/abnormal . [facility]anoHrrxvqgUAXIQCFUOT8116-26-31 03:21:00 Test Item Value Reference Range Interpretation Comments Eosinophils # (test code 0.2 See_Comment [A utomated message] The = Eosinophils #) system whic h generated this result tra nsmitted reference range : <=0.5. The reference r annemarie was not used to int erpret this result as normal/abnormal . [facility]anoFnppvwbRUCWMZGIXP1344-51-81 03:21:00 Test Item Value Reference Range Interpretation Comments Segs (test code = Segs) 64.7 45.0-75.0 [facility] ULCYSJN6773-71-94 03:21:00 Test Item Value Reference Range Interpretation Comments Total CK (test code = Total CK) 3725 12-191 [facility] HospitalDcmapgrCYRBSRCDVHYS9596-40-59 03:21:00 Test Item Value Reference Range Interpretation Comments AGAP (test code = AGAP) 14.1 10.0-20.0 [facility] HospitalXihzixoJBUTNNBCDUCN1744-33-51 03:21:00 Test Item Value Reference Range Interpretation Comments B/C Ratio (test code = B/C Ratio) 11 6-25 [facility] HospitalXpvgmvqEGCOZQEZUUAC6399-88-93 03:21:00 Test Item Value Reference Range Interpretation Comments Globulin (test code = Globulin) 3.2 2.7-4.2 [facility] HospitalYimuddxRBSEADWVESMD9189-91-01 03:21:00 Test Item Value Reference Range Interpretation Comments A/G Ratio (test code = A/G Ratio) 1.3 0.7-1.6 [facility] HospitalBwdqtjwGBIZNWTIXALG8980-28-39 03:21:00 Test Item Value Reference Range Interpretation Comments Bili Total (test code = Bili Total) 0.4 0.2-1.3 [facility] HospitalCkbsnysGGMYWEEOWSHQ5273-45-20 03:21:00 Test Item Value Reference Range Interpretation Comments eGFR (test code = eGFR) 102 [facility] HospitalNytczatRPHGNJQULEQR4787-25-02 03:21:00 Test Item Value Reference Range Interpretation Comments Albumin Lvl (test code = Albumin Lvl) 4.2 3.5-5.0 [facility] HospitalQivblwlWPYEMZNNKZYU1292-38-12 03:21:00 Test Item Value Reference Range Interpretation Comments Alk Phos (test code = Alk Phos) 48 39-136 [facility] HospitalPpgymwpTKCGQUVLMQYL8828-72-00 03:21:00 Test Item Value Reference Range Interpretation Comments AST (test code = AST) 144 See_Comment [Auto mated message] The system which ge nerated this result transmit abdelrahman reference range : <=37. The reference range was not used to interpr et this result as gurpreet l/abnormal. [facility] HospitalFgcevfoJGAGROUUYGTS6230-53-47 03:21:00 Test Item Value Reference Range Interpretation Comments Glucose Lvl (test code = Glucose Lvl) 75 70-99 [facility] HospitalGqcrvzlTWDQRUJJQXHA2635-22-70 03:21:00 Test Item Value Reference Range Interpretation Comments BUN (test code = BUN) 11 7-22 [facility] HospitalFrhhndiBNIJFHIOKQVS0973-93-36 03:21:00 Test Item Value Reference Range Interpretation Comments Potassium Lvl (test code = Potassium 4.1 3.5-5.1 Lvl) [facility] HospitalNtllseoPESVELHWJBSN3370-29-66 03:21:00 Test Item Value Reference Range Interpretation Comments Creatinine Lvl (test code = Creatinine 1.00 0.50-1.40 Lvl) [facility] HospitalVrnpsftNQRPDJPKOPRC0310-93-03 03:21:00 Test Item Value Reference Range Interpretation Comments Sodium Lvl (test code = Sodium Lvl) 140 135-145 [facility] HospitalUxoalmqBKNRMXJBAEJJ6196-29-01 03:21:00 Test Item Value Reference Range Interpretation Comments Chloride Lvl (test code = Chloride Lvl) 106 95-109 [facility] HospitalXxyzjovBTRUEALTCVTZ2975-09-77 03:21:00 Test Item Value Reference Range Interpretation Comments CO2 (test code = CO2) 24 24-32 [facility] HospitalSmpqcysWZBQNDFHSGAK1870-40-81 03:21:00 Test Item Value Reference Range Interpretation Comments Total Protein (test code = Total 7.4 6.4-8.4 Protein) [facility] HospitalYwxchyzBEESMNADYOVV6655-46-28 03:21:00 Test Item Value Reference Range Interpretation Comments Calcium Lvl (test code = Calcium Lvl) 9.1 8.5-10.5 [facility] HospitalBpktfvvWMIATAAGQDRV2636-96-99 03:21:00 Test Item Value Reference Range Interpretation Comments ALT (test code = ALT) 52 See_Comment [Auto mated message] The system which ge nerated this result transmit abdelrahman reference range : <=65. The reference range was not used to interpr et this result as gurpreet l/abnormal. [facility]anoEguqmdqYSCBYCAUGP6277-08-10 03:21:00 Test Item Value Reference Range Interpretation Comments MCV (test code = MCV) 86.0 80.0-94.0 [facility]anoQqpiivfYSUYUCOANS5304-76-25 03:21:00 Test Item Value Reference Range Interpretation Comments MCH (test code = MCH) 29.7 pg 27.0-31.0 [facility]anoTaehuahHOCFMHKZLF8420-11-13 03:21:00 Test Item Value Reference Range Interpretation Comments Hct (test code = Hct) 41.0 42.0-54.0 [facility]anoWmehqcoVBMWRIOJDQ7943-83-51 03:21:00 Test Item Value Reference Range Interpretation Comments RBC (test code = RBC) 4.77 4.70-6.10 [facility] PlanoGuxmnilDXJNAQKTOL5365-88-91 03:21:00 Test Item Value Reference Range Interpretation Comments WBC (test code = WBC) 8.8 3.7-10.4 [facility] PlanoHugllfaQBSRXMVBMT6773-61-91 03:21:00 Test Item Value Reference Range Interpretation Comments Hgb (test code = Hgb) 14.2 14.0-18.0 [facility]anoIihgnumKFKAWIBUXV6974-30-71 03:21:00 Test Item Value Reference Range Interpretation Comments Platelet (test code = Platelet) 141 133-450 [facility] PlanoEuimoppLHVYNECPCL2158-67-22 03:21:00 Test Item Value Reference Range Interpretation Comments MCHC (test code = MCHC) 34.5 32.0-36.0 [facility] PlanoNrlktavYEHSHNGVIX0137-10-44 03:21:00 Test Item Value Reference Range Interpretation Comments RDW (test code = RDW) 13.5 11.5-14.5 [facility] PlanoVzsbnumWVZKKCKQMJ0998-58-76 03:21:00 Test Item Value Reference Range Interpretation Comments MPV (test code = MPV) 8.9 7.4-10.4 [facility] PlanoZscmzsyGOGBFCMNMS6442-23-16 03:21:00 Test Item Value Reference Range Interpretation Comments Lymphocytes (test code = Lymphocytes) 21.1 20.0-40.0 [facility]anoUqzqezuBKZGJGDURQ2012-28-84 03:21:00 Test Item Value Reference Range Interpretation Comments Monocytes (test code = Monocytes) 11.7 2.0-12.0 [facility] PlanoOtkajqoRKBJNQFWYP9074-09-25 03:21:00 Test Item Value Reference Range Interpretation Comments Lymphocytes # (test code = Lymphocytes 1.8 1.0-5.5 #) [facility] PlanoPyqylszWSCBSGGILT8283-06-12 03:21:00 Test Item Value Reference Range Interpretation Comments Segs-Bands # (test code = Segs-Bands #) 5.7 1.5-8.1 [facility] PlanoZrlqxipCMTUOHGWUJ7580-13-21 03:21:00 Test Item Value Reference Range Interpretation Comments Eosinophils (test code = 1.7 See_Comment [A utomated message] The Eosinophils) system which ge nerated this result tra nsmitted reference range : <=4.0. The reference r annemarie was not used to int erpret this result as normal/abnormal . [facility]anoYpctdjhBNXFYKGWWW7874-25-35 03:21:00 Test Item Value Reference Range Interpretation Comments Basophils (test code = 0.8 See_Comment [Aut omated message] The Basophils) system which ge nerated this result tra nsmitted reference range : <=1.0. The reference r annemarie was not used to int erpret this result as normal/abnormal . [facility] PlanoMcvkhgfYORHTIHFOS4432-87-28 03:21:00 Test Item Value Reference Range Interpretation Comments Basophils # (test code 0.1 See_Comment [Aut omated message] The = Basophils #) system which generated this result tra nsmitted reference range : <=0.2. The reference r annemarie was not used to int erpret this result as normal/abnormal . [facility]anoMptvveyPZCAXXOOPX9236-14-92 03:21:00 Test Item Value Reference Range Interpretation Comments Monocytes # (test code 1.0 See_Comment [Aut omated message] The = Monocytes #) system which generated this result tra nsmitted reference range : <=0.8. The reference r annemarie was not used to int erpret this result as normal/abnormal . [facility]anoBcozyfdROJMXOURUD6279-22-98 03:21:00 Test Item Value Reference Range Interpretation Comments Eosinophils # (test code 0.2 See_Comment [A utomated message] The = Eosinophils #) system whic h generated this result tra nsmitted reference range : <=0.5. The reference r annemarie was not used to int erpret this result as normal/abnormal . [facility]ObrwmzoNYIVNQIDEE9440-48-16 03:21:00 Test Item Value Reference Range Interpretation Comments Segs (test code = Segs) 64.7 45.0-75.0 [facility] CenterEibucclLWABSBCMIM7247-27-30 04:48:00 Test Item Value Reference Range Interpretation Comments Etoh (%) (test code = Etoh (%)) no [facility] BbxtasvDTOIQRNONY4003-10-10 04:48:00 Test Item Value Reference Range Interpretation Comments Ethanol Lvl (test code = Ethanol Lvl) no [facility] LrsgehcMNNCADKRMB6597-66-80 04:48:00 Test Item Value Reference Range Interpretation Comments Etoh (%) (test code = Etoh (%)) no [facility] NldrlbtQZXBHBJPAZ9944-65-34 04:48:00 Test Item Value Reference Range Interpretation Comments Ethanol Lvl (test code = Ethanol Lvl) no [facility] OviztnbYSSKBADEQR7028-90-90 04:48:00 Test Item Value Reference Range Interpretation Comments Etoh (%) (test code = Etoh (%)) no [facility] MispehlJSXGWNMTNT4603-03-59 04:48:00 Test Item Value Reference Range Interpretation Comments Ethanol Lvl (test code = Ethanol Lvl) no [facility] FsjgabqOCDFOTMVNT7029-01-13 04:48:00 Test Item Value Reference Range Interpretation Comments Etoh (%) (test code = Etoh (%)) no [facility] TeczpqyEIEFXJWBIH9788-65-43 04:48:00 Test Item Value Reference Range Interpretation Comments Ethanol Lvl (test code = Ethanol Lvl) no [facility] LpicatqMKPURTHYTC2496-90-62 04:48:00 Test Item Value Reference Range Interpretation Comments Etoh (%) (test code = Etoh (%)) no [facility] FqqbosiPZVQABIIKU2953-86-95 04:48:00 Test Item Value Reference Range Interpretation Comments Ethanol Lvl (test code = Ethanol Lvl) no [facility] COIVPE8965-90-85 02:43:00 Test Item Value Reference Range Interpretation Comments UDS Note (test code = See Note *NA*(04/06/16 UDS Note) 8:43 PM) [facility] QMUSRC6037-22-89 02:43:00 Test Item Value Reference Range Interpretation Comments U Opiate Scr (test Negative *NA*(04/06/16 code = U Opiate Scr) 8:43 PM) [facility] DQZPWS0223-67-17 02:43:00 Test Item Value Reference Range Interpretation Comments U Benzodia Scr (test Negative *NA*(04/06/16 code = U Benzodia Scr) 8:43 PM) [facility] ATQWVW0853-98-87 02:43:00 Test Item Value Reference Range Interpretation Comments U Cocaine Scr (test Negative *NA*(04/06/16 code = U Cocaine Scr) 8:43 PM) [facility] DQKXFX3484-04-71 02:43:00 Test Item Value Reference Range Interpretation Comments U Phencyc Scr (test Negative *NA*(04/06/16 code = U Phencyc Scr) 8:43 PM) [facility] [id number] 02:43:00 Test Item Value Reference Range Interpretation Comments U Odalys Scr (test code Negative *NA*(04/06/16 = U Odalys Scr) 8:43 PM) [facility] WRGXHX8180-84-33 02:43:00 Test Item Value Reference Range Interpretation Comments U Cannab Scr (test Negative *NA*(04/06/16 code = U Cannab Scr) 8:43 PM) [facility] KASRJH1514-20-20 02:43:00 Test Item Value Reference Range Interpretation Comments U Amph Scr (test code Negative *NA*(04/06/16 = U Amph Scr) 8:43 PM) [facility] [id number] 02:43:00 Test Item Value Reference Range Interpretation Comments UA WBC (test code = UA WBC) 3-5 /HPF [facility] [id number] 02:43:00 Test Item Value Reference Range Interpretation Comments UA Sq Epi (test code = UA Sq Epi) Rare /LPF [facility] [id number] 02:43:00 Test Item Value Reference Range Interpretation Comments UA RBC (test code = 0-2 /HPF See_Comment [Automa abdelrahman message] The UA RBC) system which ge nerated this result tra nsmitted reference range : <=2. The reference range was not used to interpr et this result as gurpreet l/abnormal. [facility] AND [id number] 02:43:00 Test Item Value Reference Range Interpretation Comments UA Bacteria (test code = UA Occasional /HPF Bacteria) [facility] AND [id number] 02:43:00 Test Item Value Reference Range Interpretation Comments UA Mucus (test code = UA Mucus) Few /LPF [facility] AND [id number] 02:43:00 Test Item Value Reference Range Interpretation Comments UA Glucose (test code Negative (04/06/16 8:43 = UA Glucose) PM) [facility] AND [id number] 02:43:00 Test Item Value Reference Range Interpretation Comments UA Protein (test code Negative (04/06/16 8:43 = UA Protein) PM) [facility] AND [id number] 02:43:00 Test Item Value Reference Range Interpretation Comments UA pH (test code = UA pH) 5.5 1 5.0-8.0 [facility] AND [id number] 02:43:00 Test Item Value Reference Range Interpretation Comments UA Spec Grav (test code = UA Spec 1.025 1 Grav) [facility] AND [id number] 02:43:00 Test Item Value Reference Range Interpretation Comments UA Ketones (test code = UA >=80 mg/dL Ketones) [facility] AND [id number] 02:43:00 Test Item Value Reference Range Interpretation Comments UA Nitrite (test code Negative (04/06/16 8:43 = UA Nitrite) PM) [facility] AND [id number] 02:43:00 Test Item Value Reference Range Interpretation Comments UA Urobilinogen (test code = UA 0.2 0.1-1.0 Urobilinogen) [facility] AND [id number] 02:43:00 Test Item Value Reference Range Interpretation Comments UA Blood (test code = Negative (04/06/16 8:43 UA Blood) PM) [facility] AND [id number] 02:43:00 Test Item Value Reference Range Interpretation Comments UA Bili (test code = Small *ABN*(04/06/16 UA Bili) 8:43 PM) [facility] AND [id number] 02:43:00 Test Item Value Reference Range Interpretation Comments UA Leuk Est (test code Trace *ABN*(04/06/16 = UA Leuk Est) 8:43 PM) [facility] [id number] 02:43:00 Test Item Value Reference Range Interpretation Comments UA Turbidity (test code = Clear (04/06/16 8:43 UA Turbidity) PM) [facility] [id number] 02:43:00 Test Item Value Reference Range Interpretation Comments UA Color (test code = Yellow *NA*(04/06/16 UA Color) 8:43 PM) [facility] [id number] 02:43:00 Test Item Value Reference Range Interpretation Comments UDS Note (test code = See Note *NA*(04/06/16 UDS Note) 8:43 PM) [facility] [id number] 02:43:00 Test Item Value Reference Range Interpretation Comments U Opiate Scr (test Negative *NA*(04/06/16 code = U Opiate Scr) 8:43 PM) [facility] [id number] 02:43:00 Test Item Value Reference Range Interpretation Comments U Benzodia Scr (test Negative *NA*(04/06/16 code = U Benzodia Scr) 8:43 PM) [facility] [id number] 02:43:00 Test Item Value Reference Range Interpretation Comments U Cocaine Scr (test Negative *NA*(04/06/16 code = U Cocaine Scr) 8:43 PM) [facility] [id number] 02:43:00 Test Item Value Reference Range Interpretation Comments U Phencyc Scr (test Negative *NA*(04/06/16 code = U Phencyc Scr) 8:43 PM) [facility] [id number] 02:43:00 Test Item Value Reference Range Interpretation Comments U Odalys Scr (test code Negative *NA*(04/06/16 = U Odalys Scr) 8:43 PM) [facility] [id number] 02:43:00 Test Item Value Reference Range Interpretation Comments U Cannab Scr (test Negative *NA*(04/06/16 code = U Cannab Scr) 8:43 PM) [facility] [id number] 02:43:00 Test Item Value Reference Range Interpretation Comments U Amph Scr (test code Negative *NA*(04/06/16 = U Amph Scr) 8:43 PM) [facility] AND [id number] 02:43:00 Test Item Value Reference Range Interpretation Comments UA WBC (test code = UA WBC) 3-5 /HPF [facility] AND [id number] 02:43:00 Test Item Value Reference Range Interpretation Comments UA Sq Epi (test code = UA Sq Epi) Rare /LPF [facility] AND [id number] 02:43:00 Test Item Value Reference Range Interpretation Comments UA RBC (test code = 0-2 /HPF See_Comment [Automa abdelrahman message] The UA RBC) system which ge nerated this result tra nsmitted reference range : <=2. The reference range was not used to interpr et this result as gurpreet l/abnormal. [facility] AND [id number] 02:43:00 Test Item Value Reference Range Interpretation Comments UA Bacteria (test code = UA Occasional /HPF Bacteria) [facility] AND [id number] 02:43:00 Test Item Value Reference Range Interpretation Comments UA Mucus (test code = UA Mucus) Few /LPF [facility] AND [id number] 02:43:00 Test Item Value Reference Range Interpretation Comments UA Glucose (test code Negative (04/06/16 8:43 = UA Glucose) PM) [facility] AND [id number] 02:43:00 Test Item Value Reference Range Interpretation Comments UA Protein (test code Negative (04/06/16 8:43 = UA Protein) PM) [facility] AND [id number] 02:43:00 Test Item Value Reference Range Interpretation Comments UA pH (test code = UA pH) 5.5 1 5.0-8.0 [facility] AND [id number] 02:43:00 Test Item Value Reference Range Interpretation Comments UA Spec Grav (test code = UA Spec 1.025 1 Grav) [facility] AND [id number] 02:43:00 Test Item Value Reference Range Interpretation Comments UA Ketones (test code = UA >=80 mg/dL Ketones) [facility] AND [id number] 02:43:00 Test Item Value Reference Range Interpretation Comments UA Nitrite (test code Negative (04/06/16 8:43 = UA Nitrite) PM) [facility] [id number] 02:43:00 Test Item Value Reference Range Interpretation Comments UA Urobilinogen (test code = UA 0.2 0.1-1.0 Urobilinogen) [facility] [id number] 02:43:00 Test Item Value Reference Range Interpretation Comments UA Blood (test code = Negative (04/06/16 8:43 UA Blood) PM) [facility] [id number] 02:43:00 Test Item Value Reference Range Interpretation Comments UA Bili (test code = Small *ABN*(04/06/16 UA Bili) 8:43 PM) [facility] [id number] 02:43:00 Test Item Value Reference Range Interpretation Comments UA Leuk Est (test code Trace *ABN*(04/06/16 = UA Leuk Est) 8:43 PM) [facility] [id number] 02:43:00 Test Item Value Reference Range Interpretation Comments UA Turbidity (test code = Clear (04/06/16 8:43 UA Turbidity) PM) [facility] [id number] 02:43:00 Test Item Value Reference Range Interpretation Comments UA Color (test code = Yellow *NA*(04/06/16 UA Color) 8:43 PM) [facility] [id number] 02:43:00 Test Item Value Reference Range Interpretation Comments UDS Note (test code = See Note *NA*(04/06/16 UDS Note) 8:43 PM) [facility] [id number] 02:43:00 Test Item Value Reference Range Interpretation Comments U Opiate Scr (test Negative *NA*(04/06/16 code = U Opiate Scr) 8:43 PM) [facility] [id number] 02:43:00 Test Item Value Reference Range Interpretation Comments U Benzodia Scr (test Negative *NA*(04/06/16 code = U Benzodia Scr) 8:43 PM) [facility] [id number] 02:43:00 Test Item Value Reference Range Interpretation Comments U Cocaine Scr (test Negative *NA*(04/06/16 code = U Cocaine Scr) 8:43 PM) [facility] [id number] 02:43:00 Test Item Value Reference Range Interpretation Comments U Phencyc Scr (test Negative *NA*(04/06/16 code = U Phencyc Scr) 8:43 PM) [facility] [id number] 02:43:00 Test Item Value Reference Range Interpretation Comments U Odalys Scr (test code Negative *NA*(04/06/16 = U Odalys Scr) 8:43 PM) [facility] [id number] 02:43:00 Test Item Value Reference Range Interpretation Comments U Cannab Scr (test Negative *NA*(04/06/16 code = U Cannab Scr) 8:43 PM) [facility] [id number] 02:43:00 Test Item Value Reference Range Interpretation Comments U Amph Scr (test code Negative *NA*(04/06/16 = U Amph Scr) 8:43 PM) [facility] [id number] 02:43:00 Test Item Value Reference Range Interpretation Comments UA WBC (test code = UA WBC) 3-5 /HPF [facility] [id number] 02:43:00 Test Item Value Reference Range Interpretation Comments UA Sq Epi (test code = UA Sq Epi) Rare /LPF [facility] [id number] 02:43:00 Test Item Value Reference Range Interpretation Comments UA RBC (test code = 0-2 /HPF See_Comment [Automa abdelrahman message] The UA RBC) system which ge nerated this result tra nsmitted reference range : <=2. The reference range was not used to interpr et this result as gurpreet l/abnormal. [facility] [id number] 02:43:00 Test Item Value Reference Range Interpretation Comments UA Bacteria (test code = UA Occasional /HPF Bacteria) [facility] [id number] 02:43:00 Test Item Value Reference Range Interpretation Comments UA Mucus (test code = UA Mucus) Few /LPF [facility] [id number] 02:43:00 Test Item Value Reference Range Interpretation Comments UA Glucose (test code Negative (04/06/16 8:43 = UA Glucose) PM) [facility] [id number] 02:43:00 Test Item Value Reference Range Interpretation Comments UA Protein (test code Negative (04/06/16 8:43 = UA Protein) PM) [facility] [id number] 02:43:00 Test Item Value Reference Range Interpretation Comments UA pH (test code = UA pH) 5.5 1 5.0-8.0 [facility] [id number] 02:43:00 Test Item Value Reference Range Interpretation Comments UA Spec Grav (test code = UA Spec 1.025 1 Grav) [facility] [id number] 02:43:00 Test Item Value Reference Range Interpretation Comments UA Ketones (test code = UA >=80 mg/dL Ketones) [facility] [id number] 02:43:00 Test Item Value Reference Range Interpretation Comments UA Nitrite (test code Negative (04/06/16 8:43 = UA Nitrite) PM) [facility] [id number] 02:43:00 Test Item Value Reference Range Interpretation Comments UA Urobilinogen (test code = UA 0.2 0.1-1.0 Urobilinogen) [facility] [id number] 02:43:00 Test Item Value Reference Range Interpretation Comments UA Blood (test code = Negative (04/06/16 8:43 UA Blood) PM) [facility] [id number] 02:43:00 Test Item Value Reference Range Interpretation Comments UA Bili (test code = Small *ABN*(04/06/16 UA Bili) 8:43 PM) [facility] [id number] 02:43:00 Test Item Value Reference Range Interpretation Comments UA Leuk Est (test code Trace *ABN*(04/06/16 = UA Leuk Est) 8:43 PM) [facility] [id number] 02:43:00 Test Item Value Reference Range Interpretation Comments UA Turbidity (test code = Clear (04/06/16 8:43 UA Turbidity) PM) [facility] [id number] 02:43:00 Test Item Value Reference Range Interpretation Comments UA Color (test code = Yellow *NA*(04/06/16 UA Color) 8:43 PM) [facility] [id number] 02:43:00 Test Item Value Reference Range Interpretation Comments UDS Note (test code = See Note *NA*(04/06/16 UDS Note) 8:43 PM) [facility] [id number] 02:43:00 Test Item Value Reference Range Interpretation Comments U Opiate Scr (test Negative *NA*(04/06/16 code = U Opiate Scr) 8:43 PM) [facility] [id number] 02:43:00 Test Item Value Reference Range Interpretation Comments U Benzodia Scr (test Negative *NA*(04/06/16 code = U Benzodia Scr) 8:43 PM) [facility] [id number] 02:43:00 Test Item Value Reference Range Interpretation Comments U Cocaine Scr (test Negative *NA*(04/06/16 code = U Cocaine Scr) 8:43 PM) [facility] [id number] 02:43:00 Test Item Value Reference Range Interpretation Comments U Phencyc Scr (test Negative *NA*(04/06/16 code = U Phencyc Scr) 8:43 PM) [facility] [id number] 02:43:00 Test Item Value Reference Range Interpretation Comments U Odalys Scr (test code Negative *NA*(04/06/16 = U Odalys Scr) 8:43 PM) [facility] [id number] 02:43:00 Test Item Value Reference Range Interpretation Comments U Cannab Scr (test Negative *NA*(04/06/16 code = U Cannab Scr) 8:43 PM) [facility] [id number] 02:43:00 Test Item Value Reference Range Interpretation Comments U Amph Scr (test code Negative *NA*(04/06/16 = U Amph Scr) 8:43 PM) [facility] [id number] 02:43:00 Test Item Value Reference Range Interpretation Comments UA WBC (test code = UA WBC) 3-5 /HPF [facility] [id number] 02:43:00 Test Item Value Reference Range Interpretation Comments UA Sq Epi (test code = UA Sq Epi) Rare /LPF [facility] [id number] 02:43:00 Test Item Value Reference Range Interpretation Comments UA RBC (test code = 0-2 /HPF See_Comment [Automa abdelrahman message] The UA RBC) system which ge nerated this result tra nsmitted reference range : <=2. The reference range was not used to interpr et this result as gurpreet l/abnormal. [facility] AND [id number] 02:43:00 Test Item Value Reference Range Interpretation Comments UA Bacteria (test code = UA Occasional /HPF Bacteria) [facility] AND [id number] 02:43:00 Test Item Value Reference Range Interpretation Comments UA Mucus (test code = UA Mucus) Few /LPF [facility] AND [id number] 02:43:00 Test Item Value Reference Range Interpretation Comments UA Glucose (test code Negative (04/06/16 8:43 = UA Glucose) PM) [facility] AND [id number] 02:43:00 Test Item Value Reference Range Interpretation Comments UA Protein (test code Negative (04/06/16 8:43 = UA Protein) PM) [facility] AND [id number] 02:43:00 Test Item Value Reference Range Interpretation Comments UA pH (test code = UA pH) 5.5 1 5.0-8.0 [facility] AND [id number] 02:43:00 Test Item Value Reference Range Interpretation Comments UA Spec Grav (test code = UA Spec 1.025 1 Grav) [facility] AND [id number] 02:43:00 Test Item Value Reference Range Interpretation Comments UA Ketones (test code = UA >=80 mg/dL Ketones) [facility] AND [id number] 02:43:00 Test Item Value Reference Range Interpretation Comments UA Nitrite (test code Negative (04/06/16 8:43 = UA Nitrite) PM) [facility] AND [id number] 02:43:00 Test Item Value Reference Range Interpretation Comments UA Urobilinogen (test code = UA 0.2 0.1-1.0 Urobilinogen) [facility] AND [id number] 02:43:00 Test Item Value Reference Range Interpretation Comments UA Blood (test code = Negative (04/06/16 8:43 UA Blood) PM) [facility] AND [id number] 02:43:00 Test Item Value Reference Range Interpretation Comments UA Bili (test code = Small *ABN*(04/06/16 UA Bili) 8:43 PM) [facility] [id number] 02:43:00 Test Item Value Reference Range Interpretation Comments UA Leuk Est (test code Trace *ABN*(04/06/16 = UA Leuk Est) 8:43 PM) [facility] [id number] 02:43:00 Test Item Value Reference Range Interpretation Comments UA Turbidity (test code = Clear (04/06/16 8:43 UA Turbidity) PM) [facility] [id number] 02:43:00 Test Item Value Reference Range Interpretation Comments UA Color (test code = Yellow *NA*(04/06/16 UA Color) 8:43 PM) [facility] [id number] 02:43:00 Test Item Value Reference Range Interpretation Comments UDS Note (test code = See Note *NA*(04/06/16 UDS Note) 8:43 PM) [facility] [id number] 02:43:00 Test Item Value Reference Range Interpretation Comments U Opiate Scr (test Negative *NA*(04/06/16 code = U Opiate Scr) 8:43 PM) [facility] [id number] 02:43:00 Test Item Value Reference Range Interpretation Comments U Benzodia Scr (test Negative *NA*(04/06/16 code = U Benzodia Scr) 8:43 PM) [facility] [id number] 02:43:00 Test Item Value Reference Range Interpretation Comments U Cocaine Scr (test Negative *NA*(04/06/16 code = U Cocaine Scr) 8:43 PM) [facility] [id number] 02:43:00 Test Item Value Reference Range Interpretation Comments U Phencyc Scr (test Negative *NA*(04/06/16 code = U Phencyc Scr) 8:43 PM) [facility] [id number] 02:43:00 Test Item Value Reference Range Interpretation Comments U Odalys Scr (test code Negative *NA*(04/06/16 = U Odalys Scr) 8:43 PM) [facility] [id number] 02:43:00 Test Item Value Reference Range Interpretation Comments U Cannab Scr (test Negative *NA*(04/06/16 code = U Cannab Scr) 8:43 PM) [facility] [id number] 02:43:00 Test Item Value Reference Range Interpretation Comments U Amph Scr (test code Negative *NA*(04/06/16 = U Amph Scr) 8:43 PM) [facility] [id number] 02:43:00 Test Item Value Reference Range Interpretation Comments UA WBC (test code = UA WBC) 3-5 /HPF [facility] [id number] 02:43:00 Test Item Value Reference Range Interpretation Comments UA Sq Epi (test code = UA Sq Epi) Rare /LPF [facility] [id number] 02:43:00 Test Item Value Reference Range Interpretation Comments UA RBC (test code = 0-2 /HPF See_Comment [Automa abdelrahman message] The UA RBC) system which ge nerated this result tra nsmitted reference range : <=2. The reference range was not used to interpr et this result as guprreet l/abnormal. [facility] [id number] 02:43:00 Test Item Value Reference Range Interpretation Comments UA Bacteria (test code = UA Occasional /HPF Bacteria) [facility] [id number] 02:43:00 Test Item Value Reference Range Interpretation Comments UA Mucus (test code = UA Mucus) Few /LPF [facility] [id number] 02:43:00 Test Item Value Reference Range Interpretation Comments UA Glucose (test code Negative (04/06/16 8:43 = UA Glucose) PM) [facility] [id number] 02:43:00 Test Item Value Reference Range Interpretation Comments UA Protein (test code Negative (04/06/16 8:43 = UA Protein) PM) [facility] [id number] 02:43:00 Test Item Value Reference Range Interpretation Comments UA pH (test code = UA pH) 5.5 1 5.0-8.0 [facility] [id number] 02:43:00 Test Item Value Reference Range Interpretation Comments UA Spec Grav (test code = UA Spec 1.025 1 Grav) [facility] [id number] 02:43:00 Test Item Value Reference Range Interpretation Comments UA Ketones (test code = UA >=80 mg/dL Ketones) [facility] [id number] 02:43:00 Test Item Value Reference Range Interpretation Comments UA Nitrite (test code Negative (04/06/16 8:43 = UA Nitrite) PM) [facility] [id number] 02:43:00 Test Item Value Reference Range Interpretation Comments UA Urobilinogen (test code = UA 0.2 0.1-1.0 Urobilinogen) [facility] [id number] 02:43:00 Test Item Value Reference Range Interpretation Comments UA Blood (test code = Negative (04/06/16 8:43 UA Blood) PM) [facility] [id number] 02:43:00 Test Item Value Reference Range Interpretation Comments UA Bili (test code = Small *ABN*(04/06/16 UA Bili) 8:43 PM) [facility] [id number] 02:43:00 Test Item Value Reference Range Interpretation Comments UA Leuk Est (test code Trace *ABN*(04/06/16 = UA Leuk Est) 8:43 PM) [facility] [id number] 02:43:00 Test Item Value Reference Range Interpretation Comments UA Turbidity (test code = Clear (04/06/16 8:43 UA Turbidity) PM) [facility] [id number] 02:43:00 Test Item Value Reference Range Interpretation Comments UA Color (test code = Yellow *NA*(04/06/16 UA Color) 8:43 PM) [facility] [id number] 02:38:00 Test Item Value Reference Range Interpretation Comments Total CK (test code = Total CK) 598 12-191 [facility] [id number] 02:38:00 Test Item Value Reference Range Interpretation Comments eGFR (test code = eGFR) 121 [facility] [id number] 02:38:00 Test Item Value Reference Range Interpretation Comments Calcium Lvl (test code = Calcium Lvl) 9.2 8.5-10.5 [facility] [id number] 02:38:00 Test Item Value Reference Range Interpretation Comments Total Protein (test code = Total 7.6 6.4-8.4 Protein) [facility]2016-12-08 02:38:00 Test Item Value Reference Range Interpretation Comments CO2 (test code = CO2) 22 24-32 [facility]2016-12-08 02:38:00 Test Item Value Reference Range Interpretation Comments AST (test code = AST) 43 See_Comment [Auto mated message] The system which ge nerated this result transmit abdelrahman reference range : <=37. The reference range was not used to interpr et this result as gurpreet l/abnormal. [facility]2016-12-08 02:38:00 Test Item Value Reference Range Interpretation Comments Albumin Lvl (test code = Albumin Lvl) 4.4 3.5-5.0 [facility]2016-12-08 02:38:00 Test Item Value Reference Range Interpretation Comments ALT (test code = ALT) 22 See_Comment [Auto mated message] The system which ge nerated this result transmit abdelrahman reference range : <=65. The reference range was not used to interpr et this result as gurpreet l/abnormal. [facility]2016-12-08 02:38:00 Test Item Value Reference Range Interpretation Comments Chloride Lvl (test code = Chloride Lvl) 101 95-109 [facility]2016-12-08 02:38:00 Test Item Value Reference Range Interpretation Comments Creatinine Lvl (test code = Creatinine 0.81 0.50-1.40 Lvl) [facility]2016-12-08 02:38:00 Test Item Value Reference Range Interpretation Comments Sodium Lvl (test code = Sodium Lvl) 136 135-145 [facility]2016-12-08 02:38:00 Test Item Value Reference Range Interpretation Comments Potassium Lvl (test code = Potassium 4.4 3.5-5.1 Lvl) [facility]2016-12-08 02:38:00 Test Item Value Reference Range Interpretation Comments Bili Total (test code = Bili Total) 0.9 0.2-1.3 [facility]2016-12-08 02:38:00 Test Item Value Reference Range Interpretation Comments Alk Phos (test code = Alk Phos) 34 39-136 [facility]2016-12-08 02:38:00 Test Item Value Reference Range Interpretation Comments Glucose Lvl (test code = Glucose Lvl) 63 70-99 [facility]2016-12-08 02:38:00 Test Item Value Reference Range Interpretation Comments BUN (test code = BUN) 14 7-22 [facility]2016-12-08 02:38:00 Test Item Value Reference Range Interpretation Comments AGAP (test code = AGAP) 17.4 10.0-20.0 [facility]2016-12-08 02:38:00 Test Item Value Reference Range Interpretation Comments B/C Ratio (test code = B/C Ratio) 17 6-25 [facility]2016-12-08 02:38:00 Test Item Value Reference Range Interpretation Comments Globulin (test code = Globulin) 3.2 2.7-4.2 [facility]2016-12-08 02:38:00 Test Item Value Reference Range Interpretation Comments A/G Ratio (test code = A/G Ratio) 1.4 0.7-1.6 [place] [id number] 02:38:00 Test Item Value Reference Range Interpretation Comments Lymphocytes # (test code = Lymphocytes 1.7 1.0-5.5 #) [id number] 02:38:00 Test Item Value Reference Range Interpretation Comments Eosinophils (test code = 1.0 See_Comment [A utomated message] The Eosinophils) system which nerated this result tra nsmitted reference range : <=4.0. The reference r annemarie was not used to int erpret this result as normal/abnormal . [id number] 02:38:00 Test Item Value Reference Range Interpretation Comments Basophils (test code = 0.4 See_Comment [Aut omated message] The Basophils) system which ge nerated this result tra nsmitted reference range : <=1.0. The reference r annemarie was not used to int erpret this result as normal/abnormal . [facility]anoBpooknkAJCSLFEFXD1108-11-63 02:38:00 Test Item Value Reference Range Interpretation Comments Segs-Bands # (test code = Segs-Bands #) 4.2 1.5-8.1 [id number] 02:38:00 Test Item Value Reference Range Interpretation Comments Monocytes (test code = Monocytes) 9.2 2.0-12.0 [facility]anoQziwnadKNJBPODOLY9225-97-03 02:38:00 Test Item Value Reference Range Interpretation Comments Monocytes # (test code 0.6 See_Comment [Aut omated message] The = Monocytes #) system which generated this result tra nsmitted reference range : <=0.8. The reference r annemarie was not used to int erpret this result as normal/abnormal . [id number] 02:38:00 Test Item Value Reference Range Interpretation Comments Eosinophils # (test code 0.1 See_Comment [A utomated message] The = Eosinophils #) system whic h generated this result tra nsmitted reference range : <=0.5. The reference r annemarie was not used to int erpret this result as normal/abnormal . [id number] 02:38:00 Test Item Value Reference Range Interpretation Comments Lymphocytes (test code = Lymphocytes) 26.3 20.0-40.0 [facility]anoSoqgnbjJEXFKFRPUZ7766-74-77 02:38:00 Test Item Value Reference Range Interpretation Comments Segs (test code = Segs) 63.1 45.0-75.0 [facility] PlanoSlxaourRMEKSEVRKU4053-53-12 02:38:00 Test Item Value Reference Range Interpretation Comments WBC (test code = WBC) 6.6 3.7-10.4 [facility]anoZjetgrnYZVBEFRRDF1225-71-81 02:38:00 Test Item Value Reference Range Interpretation Comments Hct (test code = Hct) 42.9 42.0-54.0 [facility]anoEmaeiayDROHCLMCZJ0826-48-70 02:38:00 Test Item Value Reference Range Interpretation Comments RBC (test code = RBC) 4.86 4.70-6.10 [facility]anoVyyrwnxZNRQDGACUP1543-19-73 02:38:00 Test Item Value Reference Range Interpretation Comments Hgb (test code = Hgb) 14.4 14.0-18.0 [facility] PlanoWbnzenvWJVAOMFHYZ6018-88-95 02:38:00 Test Item Value Reference Range Interpretation Comments MCV (test code = MCV) 88.3 80.0-94.0 [facility]anoMwuyuvcQOCLEZKHZT1565-83-37 02:38:00 Test Item Value Reference Range Interpretation Comments MCH (test code = MCH) 29.6 pg 27.0-31.0 [facility] CenterFxlndxmJJSLMSPWER2848-78-72 02:38:00 Test Item Value Reference Range Interpretation Comments MCHC (test code = MCHC) 33.6 32.0-36.0 [facility] [id number] 02:38:00 Test Item Value Reference Range Interpretation Comments MPV (test code = MPV) 9.4 7.4-10.4 [facility] CenterTkjlszeHQEMHDDMAZ4867-41-91 02:38:00 Test Item Value Reference Range Interpretation Comments RDW (test code = RDW) 13.4 11.5-14.5 [facility] CenterYhsvaohRCGOVWYYYA6335-13-65 02:38:00 Test Item Value Reference Range Interpretation Comments Platelet (test code = Platelet) 145 133-450 [facility] [id number] 02:38:00 Test Item Value Reference Range Interpretation Comments Salicylate Lvl (test no gt See_Comment [Autom ated message] The code = Salicylate Lvl) syste m which generated this result tra nsmitted reference range : <=30.0. The reference r annemarie was not used to int erpret this result as normal/abnormal . [facility] CenterRptqwzmHOBDUNLZNO7220-28-85 02:38:00 Test Item Value Reference Range Interpretation Comments Acetaminoph Lvl (test code (04/06/16 8:38 PM) 10-20 = Acetaminoph Lvl) [facility] HermannVIRAL - [id number] 02:38:00 Test Item Value Reference Range Interpretation Comments Influ B (test code = Negative (04/06/16 8:38 Influ B) PM) [facility] HermannVIRAL - [id number] 02:38:00 Test Item Value Reference Range Interpretation Comments Influ A (test code = Negative (04/06/16 8:38 Influ A) PM) [facility] CenterannCARDIAC [id number] 02:38:00 Test Item Value Reference Range Interpretation Comments Total CK (test code = Total CK) 598 12-191 [facility] CenterannCHEM [id number] 02:38:00 Test Item Value Reference Range Interpretation Comments eGFR (test code = eGFR) 121 [facility]annCHEM [id number] 02:38:00 Test Item Value Reference Range Interpretation Comments Calcium Lvl (test code = Calcium Lvl) 9.2 8.5-10.5 [facility]2016-12-08 02:38:00 Test Item Value Reference Range Interpretation Comments Total Protein (test code = Total 7.6 6.4-8.4 Protein) [facility]2016-12-08 02:38:00 Test Item Value Reference Range Interpretation Comments CO2 (test code = CO2) 22 24-32 [facility]2016-12-08 02:38:00 Test Item Value Reference Range Interpretation Comments AST (test code = AST) 43 See_Comment [Auto mated message] The system which ge nerated this result transmit abdelrahman reference range : <=37. The reference range was not used to interpr et this result as gurpreet l/abnormal. [facility]2016-12-08 02:38:00 Test Item Value Reference Range Interpretation Comments Albumin Lvl (test code = Albumin Lvl) 4.4 3.5-5.0 [facility]2016-12-08 02:38:00 Test Item Value Reference Range Interpretation Comments ALT (test code = ALT) 22 See_Comment [Auto mated message] The system which ge nerated this result transmit abdelrahman reference range : <=65. The reference range was not used to interpr et this result as gurpreet l/abnormal. [facility]2016-12-08 02:38:00 Test Item Value Reference Range Interpretation Comments Chloride Lvl (test code = Chloride Lvl) 101 95-109 [facility]2016-12-08 02:38:00 Test Item Value Reference Range Interpretation Comments Creatinine Lvl (test code = Creatinine 0.81 0.50-1.40 Lvl) [facility]2016-12-08 02:38:00 Test Item Value Reference Range Interpretation Comments Sodium Lvl (test code = Sodium Lvl) 136 135-145 [facility]2016-12-08 02:38:00 Test Item Value Reference Range Interpretation Comments Potassium Lvl (test code = Potassium 4.4 3.5-5.1 Lvl) [facility]2016-12-08 02:38:00 Test Item Value Reference Range Interpretation Comments Bili Total (test code = Bili Total) 0.9 0.2-1.3 [facility]2016-12-08 02:38:00 Test Item Value Reference Range Interpretation Comments Alk Phos (test code = Alk Phos) 34 39-136 [facility]2016-12-08 02:38:00 Test Item Value Reference Range Interpretation Comments Glucose Lvl (test code = Glucose Lvl) 63 70-99 [place] 334796-12-08 02:38:00 Test Item Value Reference Range Interpretation Comments BUN (test code = BUN) 14 7-22 [facility]2016-12-08 02:38:00 Test Item Value Reference Range Interpretation Comments AGAP (test code = AGAP) 17.4 10.0-20.0 [facility]2016-12-08 02:38:00 Test Item Value Reference Range Interpretation Comments B/C Ratio (test code = B/C Ratio) 17 6-25 [place] 334796-12-08 02:38:00 Test Item Value Reference Range Interpretation Comments Globulin (test code = Globulin) 3.2 2.7-4.2 [facility]2016-12-08 02:38:00 Test Item Value Reference Range Interpretation Comments A/G Ratio (test code = A/G Ratio) 1.4 0.7-1.6 [facility]anoZtyqmcjUCIFCJOCRA6176-73-81 02:38:00 Test Item Value Reference Range Interpretation Comments Lymphocytes # (test code = Lymphocytes 1.7 1.0-5.5 #) [facility]anoIelqrwkLWDZVSMFRG1681-39-95 02:38:00 Test Item Value Reference Range Interpretation Comments Eosinophils (test code = 1.0 See_Comment [A utomated message] The Eosinophils) system which ge nerated this result tra nsmitted reference range : <=4.0. The reference r annemarie was not used to int erpret this result as normal/abnormal . [facility] PlanoLvxsuiaBOTWCBQLMV5323-74-50 02:38:00 Test Item Value Reference Range Interpretation Comments Basophils (test code = 0.4 See_Comment [Aut omated message] The Basophils) system which ge nerated this result tra nsmitted reference range : <=1.0. The reference r annemarie was not used to int erpret this result as normal/abnormal . [facility] PlanoYsbijleCVNDPZNCCR7487-30-47 02:38:00 Test Item Value Reference Range Interpretation Comments Segs-Bands # (test code = Segs-Bands #) 4.2 1.5-8.1 [facility]anoUusgfzbTLKIFETHVH1353-21-16 02:38:00 Test Item Value Reference Range Interpretation Comments Monocytes (test code = Monocytes) 9.2 2.0-12.0 [facility]anoZnvdqpfZXWOMBGUVG1890-29-12 02:38:00 Test Item Value Reference Range Interpretation Comments Monocytes # (test code 0.6 See_Comment [Aut omated message] The = Monocytes #) system which generated this result tra nsmitted reference range : <=0.8. The reference r annemarie was not used to int erpret this result as normal/abnormal . [facility] PlanoUimcbocGKIJSPMYQK5565-56-16 02:38:00 Test Item Value Reference Range Interpretation Comments Eosinophils # (test code 0.1 See_Comment [A utomated message] The = Eosinophils #) system whic h generated this result tra nsmitted reference range : <=0.5. The reference r annemarie was not used to int erpret this result as normal/abnormal . [facility] PlanoMhwexesSMIKSQYTUX0525-32-72 02:38:00 Test Item Value Reference Range Interpretation Comments Lymphocytes (test code = Lymphocytes) 26.3 20.0-40.0 [facility]anoXrfjlyxHYQSKWYPQA6463-00-46 02:38:00 Test Item Value Reference Range Interpretation Comments Segs (test code = Segs) 63.1 45.0-75.0 [facility]anoWzfmugrTDUAJDLKZY1578-01-52 02:38:00 Test Item Value Reference Range Interpretation Comments WBC (test code = WBC) 6.6 3.7-10.4 [facility] PlanoQfsigrrQDPFNYYVRH5282-59-92 02:38:00 Test Item Value Reference Range Interpretation Comments Hct (test code = Hct) 42.9 42.0-54.0 [facility] PlanoFmpdstcMRXVDAWMBL4977-29-08 02:38:00 Test Item Value Reference Range Interpretation Comments RBC (test code = RBC) 4.86 4.70-6.10 [facility]anoOcvfamkUAJRWUQGUQ8198-42-11 02:38:00 Test Item Value Reference Range Interpretation Comments Hgb (test code = Hgb) 14.4 14.0-18.0 [facility] PlanoTyjxntrVDSWFUSTWU0678-38-17 02:38:00 Test Item Value Reference Range Interpretation Comments MCV (test code = MCV) 88.3 80.0-94.0 [facility] CenterBfjzyimCDEDJFKWIW1887-83-36 02:38:00 Test Item Value Reference Range Interpretation Comments MCH (test code = MCH) 29.6 pg 27.0-31.0 [facility] CenterEkpifhhXWNGHNYNVP6260-93-99 02:38:00 Test Item Value Reference Range Interpretation Comments MCHC (test code = MCHC) 33.6 32.0-36.0 [facility] CenterPkxxnalCLAZCNOAJE7210-22-42 02:38:00 Test Item Value Reference Range Interpretation Comments MPV (test code = MPV) 9.4 7.4-10.4 [facility] CenterXcwoaluMYIZLNFJIK5365-21-15 02:38:00 Test Item Value Reference Range Interpretation Comments RDW (test code = RDW) 13.4 11.5-14.5 [facility] CenterDcopzofQZYNSFKZAH2486-43-91 02:38:00 Test Item Value Reference Range Interpretation Comments Platelet (test code = Platelet) 145 133-450 [facility] CenterDevzxudSLPROXTQEL6197-48-97 02:38:00 Test Item Value Reference Range Interpretation Comments Salicylate Lvl (test no gt See_Comment [Autom ated message] The code = Salicylate Lvl) syste m which generated this result tra nsmitted reference range : <=30.0. The reference r annemarie was not used to int erpret this result as normal/abnormal . [facility] CenterCgayswxRVXCNIBKDO6770-86-78 02:38:00 Test Item Value Reference Range Interpretation Comments Acetaminoph Lvl (test code (04/06/16 8:38 PM) 10-20 = Acetaminoph Lvl) [facility] HermannVIRAL - [id number] 02:38:00 Test Item Value Reference Range Interpretation Comments Influ B (test code = Negative (04/06/16 8:38 Influ B) PM) [facility] HermannVIRAL - [id number] 02:38:00 Test Item Value Reference Range Interpretation Comments Influ A (test code = Negative (04/06/16 8:38 Influ A) PM) [facility] CenterannCARDIAC [id number] 02:38:00 Test Item Value Reference Range Interpretation Comments Total CK (test code = Total CK) 598 12-191 [facility] CenterannCHEM [id number] 02:38:00 Test Item Value Reference Range Interpretation Comments eGFR (test code = eGFR) 121 [facility]2016-12-08 02:38:00 Test Item Value Reference Range Interpretation Comments Calcium Lvl (test code = Calcium Lvl) 9.2 8.5-10.5 [facility]2016-12-08 02:38:00 Test Item Value Reference Range Interpretation Comments Total Protein (test code = Total 7.6 6.4-8.4 Protein) [facility]2016-12-08 02:38:00 Test Item Value Reference Range Interpretation Comments CO2 (test code = CO2) 22 24-32 [facility]2016-12-08 02:38:00 Test Item Value Reference Range Interpretation Comments AST (test code = AST) 43 See_Comment [Auto mated message] The system which ge nerated this result transmit abdelrahman reference range : <=37. The reference range was not used to interpr et this result as gurpreet l/abnormal. [facility]2016-12-08 02:38:00 Test Item Value Reference Range Interpretation Comments Albumin Lvl (test code = Albumin Lvl) 4.4 3.5-5.0 [facility]2016-12-08 02:38:00 Test Item Value Reference Range Interpretation Comments ALT (test code = ALT) 22 See_Comment [Auto mated message] The system which ge nerated this result transmit abdelrahman reference range : <=65. The reference range was not used to interpr et this result as gurpreet l/abnormal. [facility]2016-12-08 02:38:00 Test Item Value Reference Range Interpretation Comments Chloride Lvl (test code = Chloride Lvl) 101 95-109 [facility]2016-12-08 02:38:00 Test Item Value Reference Range Interpretation Comments Creatinine Lvl (test code = Creatinine 0.81 0.50-1.40 Lvl) [facility]2016-12-08 02:38:00 Test Item Value Reference Range Interpretation Comments Sodium Lvl (test code = Sodium Lvl) 136 135-145 [facility]2016-12-08 02:38:00 Test Item Value Reference Range Interpretation Comments Potassium Lvl (test code = Potassium 4.4 3.5-5.1 Lvl) [place] 334796-12-08 02:38:00 Test Item Value Reference Range Interpretation Comments Bili Total (test code = Bili Total) 0.9 0.2-1.3 [facility]2016-12-08 02:38:00 Test Item Value Reference Range Interpretation Comments Alk Phos (test code = Alk Phos) 34 39-136 [facility]2016-12-08 02:38:00 Test Item Value Reference Range Interpretation Comments Glucose Lvl (test code = Glucose Lvl) 63 70-99 [facility]2016-12-08 02:38:00 Test Item Value Reference Range Interpretation Comments BUN (test code = BUN) 14 7-22 [facility]2016-12-08 02:38:00 Test Item Value Reference Range Interpretation Comments AGAP (test code = AGAP) 17.4 10.0-20.0 [facility]2016-12-08 02:38:00 Test Item Value Reference Range Interpretation Comments B/C Ratio (test code = B/C Ratio) 17 6-25 [facility]2016-12-08 02:38:00 Test Item Value Reference Range Interpretation Comments Globulin (test code = Globulin) 3.2 2.7-4.2 [facility]2016-12-08 02:38:00 Test Item Value Reference Range Interpretation Comments A/G Ratio (test code = A/G Ratio) 1.4 0.7-1.6 [facility]anoQbgocjiNMHGISDSHD8644-19-26 02:38:00 Test Item Value Reference Range Interpretation Comments Lymphocytes # (test code = Lymphocytes 1.7 1.0-5.5 #) [facility] PlanoEytfhegCKPYXYFEYR3420-23-22 02:38:00 Test Item Value Reference Range Interpretation Comments Eosinophils (test code = 1.0 See_Comment [A utomated message] The Eosinophils) system which ge nerated this result tra nsmitted reference range : <=4.0. The reference r annemarie was not used to int erpret this result as normal/abnormal . [facility] PlanoKsywvnxNHLKXPKVJD7820-28-27 02:38:00 Test Item Value Reference Range Interpretation Comments Basophils (test code = 0.4 See_Comment [Aut omated message] The Basophils) system which ge nerated this result tra nsmitted reference range : <=1.0. The reference r annemarie was not used to int erpret this result as normal/abnormal . [facility]anoHrsyeqmUPPUFBLMVT9170-04-10 02:38:00 Test Item Value Reference Range Interpretation Comments Segs-Bands # (test code = Segs-Bands #) 4.2 1.5-8.1 [facility] PlanoLrfkmlvMEFIZYBNZS9726-17-79 02:38:00 Test Item Value Reference Range Interpretation Comments Monocytes (test code = Monocytes) 9.2 2.0-12.0 [facility] PlanoEatzgeaJTWPXFJEQR4394-05-00 02:38:00 Test Item Value Reference Range Interpretation Comments Monocytes # (test code 0.6 See_Comment [Aut omated message] The = Monocytes #) system which generated this result tra nsmitted reference range : <=0.8. The reference r annemarie was not used to int erpret this result as normal/abnormal . [facility] PlanoOtcgdgsBUJWRNFIAN6224-18-32 02:38:00 Test Item Value Reference Range Interpretation Comments Eosinophils # (test code 0.1 See_Comment [A utomated message] The = Eosinophils #) system whic h generated this result tra nsmitted reference range : <=0.5. The reference r annemarie was not used to int erpret this result as normal/abnormal . [facility] PlanoRymajguEDNCIGAMYG0485-81-11 02:38:00 Test Item Value Reference Range Interpretation Comments Lymphocytes (test code = Lymphocytes) 26.3 20.0-40.0 [facility] PlanoHdacnnzECHEKFJFRU3955-26-23 02:38:00 Test Item Value Reference Range Interpretation Comments Segs (test code = Segs) 63.1 45.0-75.0 [facility] PlanoVttmahrYYMUEYSMXM6852-66-77 02:38:00 Test Item Value Reference Range Interpretation Comments WBC (test code = WBC) 6.6 3.7-10.4 [facility] PlanoHxdsftoYWFXMQWPVX9129-46-43 02:38:00 Test Item Value Reference Range Interpretation Comments Hct (test code = Hct) 42.9 42.0-54.0 [facility] PlanoDtvgidyLEDYPDHGQQ2404-40-05 02:38:00 Test Item Value Reference Range Interpretation Comments RBC (test code = RBC) 4.86 4.70-6.10 [facility] PlanoEoviqtcILIDDNGNXV8437-56-93 02:38:00 Test Item Value Reference Range Interpretation Comments Hgb (test code = Hgb) 14.4 14.0-18.0 [facility]NvqyqnjYRHPBZAICC9025-68-22 02:38:00 Test Item Value Reference Range Interpretation Comments MCV (test code = MCV) 88.3 80.0-94.0 [facility]VoutfwvDBRPKGWRNN3667-43-36 02:38:00 Test Item Value Reference Range Interpretation Comments MCH (test code = MCH) 29.6 pg 27.0-31.0 [facility] HospitalQvmvhaoFKHDDJOZKL1611-58-30 02:38:00 Test Item Value Reference Range Interpretation Comments MCHC (test code = MCHC) 33.6 32.0-36.0 [facility] CenterZcexxxxVHOJCPELFQ5400-10-67 02:38:00 Test Item Value Reference Range Interpretation Comments MPV (test code = MPV) 9.4 7.4-10.4 [facility] HospitalRoerudeEHITWWMYAS1368-33-74 02:38:00 Test Item Value Reference Range Interpretation Comments RDW (test code = RDW) 13.4 11.5-14.5 [facility] HospitalJekhnpuSOVZMLAVUT1236-85-16 02:38:00 Test Item Value Reference Range Interpretation Comments Platelet (test code = Platelet) 145 133-450 [facility] CenterDfoiooqHJSLUPFXHA5587-73-86 02:38:00 Test Item Value Reference Range Interpretation Comments Salicylate Lvl (test no gt See_Comment [Autom ated message] The code = Salicylate Lvl) syste m which generated this result tra nsmitted reference range : <=30.0. The reference r annemarie was not used to int erpret this result as normal/abnormal . [facility] CenterYxlwilaDXDNKQBTBZ9742-59-15 02:38:00 Test Item Value Reference Range Interpretation Comments Acetaminoph Lvl (test code (04/06/16 8:38 PM) 10-20 = Acetaminoph Lvl) [facility] HermannVIRAL - [id number] 02:38:00 Test Item Value Reference Range Interpretation Comments Influ B (test code = Negative (04/06/16 8:38 Influ B) PM) [facility]annVIRAL - [id number] 02:38:00 Test Item Value Reference Range Interpretation Comments Influ A (test code = Negative (04/06/16 8:38 Influ A) PM) [facility] [id number] 02:38:00 Test Item Value Reference Range Interpretation Comments Total CK (test code = Total CK) 598 12-191 [facility] CenterCondoDomain [id number] 02:38:00 Test Item Value Reference Range Interpretation Comments eGFR (test code = eGFR) 121 [facility]2016-12-08 02:38:00 Test Item Value Reference Range Interpretation Comments Calcium Lvl (test code = Calcium Lvl) 9.2 8.5-10.5 [facility] HospitalHaloband [id number] 02:38:00 Test Item Value Reference Range Interpretation Comments Total Protein (test code = Total 7.6 6.4-8.4 Protein) [facility] CenterCondoDomain [id number] 02:38:00 Test Item Value Reference Range Interpretation Comments CO2 (test code = CO2) 22 24-32 [facility] CenterCondoDomain [id number] 02:38:00 Test Item Value Reference Range Interpretation Comments AST (test code = AST) 43 See_Comment [Auto mated message] The system which ge nerated this result transmit abdelrahman reference range : <=37. The reference range was not used to interpr et this result as gurpreet l/abnormal. [facility] CenterCondoDomain WZKJF2537-03-01 02:38:00 Test Item Value Reference Range Interpretation Comments Albumin Lvl (test code = Albumin Lvl) 4.4 3.5-5.0 [facility] CenterCondoDomain [id number] 02:38:00 Test Item Value Reference Range Interpretation Comments ALT (test code = ALT) 22 See_Comment [Auto mated message] The system which ge nerated this result transmit abdelrahman reference range : <=65. The reference range was not used to interpr et this result as gurpreet l/abnormal. [facility] [employer] [id number] 02:38:00 Test Item Value Reference Range Interpretation Comments Chloride Lvl (test code = Chloride Lvl) 101 95-109 [facility] CenterCondoDomain [id number] 02:38:00 Test Item Value Reference Range Interpretation Comments Creatinine Lvl (test code = Creatinine 0.81 0.50-1.40 Lvl) [facility] HospitalHalob[facility] [id number] 02:38:00 Test Item Value Reference Range Interpretation Comments Sodium Lvl (test code = Sodium Lvl) 136 135-145 [facility]2016-12-08 02:38:00 Test Item Value Reference Range Interpretation Comments Potassium Lvl (test code = Potassium 4.4 3.5-5.1 Lvl) [facility]2016-12-08 02:38:00 Test Item Value Reference Range Interpretation Comments Bili Total (test code = Bili Total) 0.9 0.2-1.3 [place] 334796-12-08 02:38:00 Test Item Value Reference Range Interpretation Comments Alk Phos (test code = Alk Phos) 34 39-136 [facility]2016-12-08 02:38:00 Test Item Value Reference Range Interpretation Comments Glucose Lvl (test code = Glucose Lvl) 63 70-99 [facility]2016-12-08 02:38:00 Test Item Value Reference Range Interpretation Comments BUN (test code = BUN) 14 7-22 [facility]2016-12-08 02:38:00 Test Item Value Reference Range Interpretation Comments AGAP (test code = AGAP) 17.4 10.0-20.0 [facility]2016-12-08 02:38:00 Test Item Value Reference Range Interpretation Comments B/C Ratio (test code = B/C Ratio) 17 6-25 [facility]2016-12-08 02:38:00 Test Item Value Reference Range Interpretation Comments Globulin (test code = Globulin) 3.2 2.7-4.2 [facility]2016-12-08 02:38:00 Test Item Value Reference Range Interpretation Comments A/G Ratio (test code = A/G Ratio) 1.4 0.7-1.6 [facility]anoPlmeffqYJNPYFVZHG1669-57-30 02:38:00 Test Item Value Reference Range Interpretation Comments Lymphocytes # (test code = Lymphocytes 1.7 1.0-5.5 #) [facility] PlanoByuifxzGNTQQNSECQ9314-40-74 02:38:00 Test Item Value Reference Range Interpretation Comments Eosinophils (test code = 1.0 See_Comment [A utomated message] The Eosinophils) system which ge nerated this result tra nsmitted reference range : <=4.0. The reference r annemarie was not used to int erpret this result as normal/abnormal . [facility] PlanoXrnqomzLFRFPMORKU1780-92-74 02:38:00 Test Item Value Reference Range Interpretation Comments Basophils (test code = 0.4 See_Comment [Aut omated message] The Basophils) system which ge nerated this result tra nsmitted reference range : <=1.0. The reference r annemarie was not used to int erpret this result as normal/abnormal . [facility] PlanoMwfazomEDUUHRTHKL0381-87-18 02:38:00 Test Item Value Reference Range Interpretation Comments Segs-Bands # (test code = Segs-Bands #) 4.2 1.5-8.1 [facility] PlanoZdfminwPQLMXZKCDR9685-83-74 02:38:00 Test Item Value Reference Range Interpretation Comments Monocytes (test code = Monocytes) 9.2 2.0-12.0 [facility] PlanoRtdlnkhPPBOCMUOMK7290-40-89 02:38:00 Test Item Value Reference Range Interpretation Comments Monocytes # (test code 0.6 See_Comment [Aut omated message] The = Monocytes #) system which generated this result tra nsmitted reference range : <=0.8. The reference r annemarie was not used to int erpret this result as normal/abnormal . [facility] PlanoXnmujezZMRMENEQZK9838-49-69 02:38:00 Test Item Value Reference Range Interpretation Comments Eosinophils # (test code 0.1 See_Comment [A utomated message] The = Eosinophils #) system whic h generated this result tra nsmitted reference range : <=0.5. The reference r annemarie was not used to int erpret this result as normal/abnormal . [facility]anoFylbrofNCYCVCDGGT0886-36-26 02:38:00 Test Item Value Reference Range Interpretation Comments Lymphocytes (test code = Lymphocytes) 26.3 20.0-40.0 [facility]anoZqktlvbGFFRYLYOMN8840-62-93 02:38:00 Test Item Value Reference Range Interpretation Comments Segs (test code = Segs) 63.1 45.0-75.0 [facility] [place]anoVpogtylSPUWARSOLC7271-08-83 02:38:00 Test Item Value Reference Range Interpretation Comments WBC (test code = WBC) 6.6 3.7-10.4 [facility]anoKfthqbfXZXABXNTFH3846-99-39 02:38:00 Test Item Value Reference Range Interpretation Comments Hct (test code = Hct) 42.9 42.0-54.0 [facility] [place]anoRefwuxqYJPDCLKBXM4451-89-06 02:38:00 Test Item Value Reference Range Interpretation Comments RBC (test code = RBC) 4.86 4.70-6.10 [facility] PlanoTvpzaskHPGPFHZVHK8550-61-63 02:38:00 Test Item Value Reference Range Interpretation Comments Hgb (test code = Hgb) 14.4 14.0-18.0 [facility] [place]anoXwrgoiqWHLEXDCUMW7179-82-47 02:38:00 Test Item Value Reference Range Interpretation Comments MCV (test code = MCV) 88.3 80.0-94.0 [facility] PlanoTvkbrpqMCTKENXEOI5190-10-56 02:38:00 Test Item Value Reference Range Interpretation Comments MCH (test code = MCH) 29.6 pg 27.0-31.0 [facility]anoWxmnutrVMHUVDKKIX8628-06-98 02:38:00 Test Item Value Reference Range Interpretation Comments MCHC (test code = MCHC) 33.6 32.0-36.0 [facility]anoUwfmjmtDRPDTEMROM9537-51-00 02:38:00 Test Item Value Reference Range Interpretation Comments MPV (test code = MPV) 9.4 7.4-10.4 [facility]anoWdgnvxmKUDOGDWAPA9122-17-60 02:38:00 Test Item Value Reference Range Interpretation Comments RDW (test code = RDW) 13.4 11.5-14.5 [facility] PlanoMoalyvoRFHBLGZLSI4146-78-20 02:38:00 Test Item Value Reference Range Interpretation Comments Platelet (test code = Platelet) 145 133-450 [place] [address]2016-12-08 02:38:00 Test Item Value Reference Range Interpretation Comments Salicylate Lvl (test no gt See_Comment [Autom ated message] The code = Salicylate Lvl) syste m which generated this result tra nsmitted reference range : <=30.0. The reference r annemarie was not used to int erpret this result as normal/abnormal . [facility] StationYuteostTGAFKNRSCL7741-77-86 02:38:00 Test Item Value Reference Range Interpretation Comments Acetaminoph Lvl (test code (04/06/16 8:38 PM) 10-20 = Acetaminoph Lvl) [facility] [id number] 02:38:00 Test Item Value Reference Range Interpretation Comments Influ B (test code = Negative (04/06/16 8:38 Influ B) PM) [facility] IQJFGCXB4185-14-95 02:38:00 Test Item Value Reference Range Interpretation Comments Influ A (test code = Negative (04/06/16 8:38 Influ A) PM) [facility] CenterannCARDIAC VDZKZHB4580-98-89 02:38:00 Test Item Value Reference Range Interpretation Comments Total CK (test code = Total CK) 598 12-191 [facility] CenterSkillPagesCHEM RFRLS6255-00-79 02:38:00 Test Item Value Reference Range Interpretation Comments eGFR (test code = eGFR) 121 [facility] CenterCondoDomain [id number] 02:38:00 Test Item Value Reference Range Interpretation Comments Calcium Lvl (test code = Calcium Lvl) 9.2 8.5-10.5 [facility] [id number] 02:38:00 Test Item Value Reference Range Interpretation Comments Total Protein (test code = Total 7.6 6.4-8.4 Protein) [facility] CenterCond[facility] [id number] 02:38:00 Test Item Value Reference Range Interpretation Comments CO2 (test code = CO2) 22 24-32 [facility] CenterCond[facility] [id number] 02:38:00 Test Item Value Reference Range Interpretation Comments AST (test code = AST) 43 See_Comment [Auto mated message] The system which ge nerated this result transmit abdelrahman reference range : <=37. The reference range was not used to interpr et this result as gurpreet l/abnormal. [facility] CenterCondoDomain [id number] 02:38:00 Test Item Value Reference Range Interpretation Comments Albumin Lvl (test code = Albumin Lvl) 4.4 3.5-5.0 [facility] CenterCond[facility] [id number] 02:38:00 Test Item Value Reference Range Interpretation Comments ALT (test code = ALT) 22 See_Comment [Auto mated message] The system which ge nerated this result transmit abdelrahman reference range : <=65. The reference range was not used to interpr et this result as gurpreet l/abnormal. [facility] CenterCond[facility] [id number] 02:38:00 Test Item Value Reference Range Interpretation Comments Chloride Lvl (test code = Chloride Lvl) 101 95-109 [facility] CenterCond[facility] [id number] 02:38:00 Test Item Value Reference Range Interpretation Comments Creatinine Lvl (test code = Creatinine 0.81 0.50-1.40 Lvl) [facility]2016-12-08 02:38:00 Test Item Value Reference Range Interpretation Comments Sodium Lvl (test code = Sodium Lvl) 136 135-145 [facility]2016-12-08 02:38:00 Test Item Value Reference Range Interpretation Comments Potassium Lvl (test code = Potassium 4.4 3.5-5.1 Lvl) [facility]2016-12-08 02:38:00 Test Item Value Reference Range Interpretation Comments Bili Total (test code = Bili Total) 0.9 0.2-1.3 [facility]2016-12-08 02:38:00 Test Item Value Reference Range Interpretation Comments Alk Phos (test code = Alk Phos) 34 39-136 [facility]2016-12-08 02:38:00 Test Item Value Reference Range Interpretation Comments Glucose Lvl (test code = Glucose Lvl) 63 70-99 [facility]2016-12-08 02:38:00 Test Item Value Reference Range Interpretation Comments BUN (test code = BUN) 14 7-22 [facility]2016-12-08 02:38:00 Test Item Value Reference Range Interpretation Comments AGAP (test code = AGAP) 17.4 10.0-20.0 [facility]2016-12-08 02:38:00 Test Item Value Reference Range Interpretation Comments B/C Ratio (test code = B/C Ratio) 17 6-25 [facility]2016-12-08 02:38:00 Test Item Value Reference Range Interpretation Comments Globulin (test code = Globulin) 3.2 2.7-4.2 [facility]2016-12-08 02:38:00 Test Item Value Reference Range Interpretation Comments A/G Ratio (test code = A/G Ratio) 1.4 0.7-1.6 [facility] PlanoSarchpdVILATRRVDU0648-60-11 02:38:00 Test Item Value Reference Range Interpretation Comments Lymphocytes # (test code = Lymphocytes 1.7 1.0-5.5 #) [facility] PlanoTqftipiQVXGKZHXVP5703-71-86 02:38:00 Test Item Value Reference Range Interpretation Comments Eosinophils (test code = 1.0 See_Comment [A utomated message] The Eosinophils) system which ge nerated this result tra nsmitted reference range : <=4.0. The reference r annemarie was not used to int erpret this result as normal/abnormal . [facility] PlanoGrzkovwKMNUJKDNZN7733-24-65 02:38:00 Test Item Value Reference Range Interpretation Comments Basophils (test code = 0.4 See_Comment [Aut omated message] The Basophils) system which ge nerated this result tra nsmitted reference range : <=1.0. The reference r annemarie was not used to int erpret this result as normal/abnormal . [facility]anoXoxjbnaVWZDGLRXYK9403-25-31 02:38:00 Test Item Value Reference Range Interpretation Comments Segs-Bands # (test code = Segs-Bands #) 4.2 1.5-8.1 [facility] PlanoDbpievgXCFCCLUSHI2527-10-74 02:38:00 Test Item Value Reference Range Interpretation Comments Monocytes (test code = Monocytes) 9.2 2.0-12.0 [facility] PlanoOrkevveTSDFQWFTTK4626-63-49 02:38:00 Test Item Value Reference Range Interpretation Comments Monocytes # (test code 0.6 See_Comment [Aut omated message] The = Monocytes #) system which generated this result tra nsmitted reference range : <=0.8. The reference r annemarie was not used to int erpret this result as normal/abnormal . [facility]anoXwvobadFCWVAKEHJZ1385-95-36 02:38:00 Test Item Value Reference Range Interpretation Comments Eosinophils # (test code 0.1 See_Comment [A utomated message] The = Eosinophils #) system whic h generated this result tra nsmitted reference range : <=0.5. The reference r annemarie was not used to int erpret this result as normal/abnormal . [facility] PlanoIppnvblFOTBPVXAFU2873-01-85 02:38:00 Test Item Value Reference Range Interpretation Comments Lymphocytes (test code = Lymphocytes) 26.3 20.0-40.0 [facility] PlanoAowmyyyQXPKNTZNLE0245-07-61 02:38:00 Test Item Value Reference Range Interpretation Comments Segs (test code = Segs) 63.1 45.0-75.0 [facility] PlanoWhkpdtlNFMYQIQPHI8462-24-84 02:38:00 Test Item Value Reference Range Interpretation Comments WBC (test code = WBC) 6.6 3.7-10.4 [facility] PlanoYoiclwxJXSJTTVDRS3742-92-34 02:38:00 Test Item Value Reference Range Interpretation Comments Hct (test code = Hct) 42.9 42.0-54.0 [facility] PlanoOxqdydpETVNHTNCXM6167-25-82 02:38:00 Test Item Value Reference Range Interpretation Comments RBC (test code = RBC) 4.86 4.70-6.10 [facility] PlanoXavvhwvAUFZCXGREW6224-11-79 02:38:00 Test Item Value Reference Range Interpretation Comments Hgb (test code = Hgb) 14.4 14.0-18.0 [facility] PlanoWgospvrCYNJDAKENS6341-85-71 02:38:00 Test Item Value Reference Range Interpretation Comments MCV (test code = MCV) 88.3 80.0-94.0 [facility] PlanoTqmnxtlTROATMVJRV0514-42-79 02:38:00 Test Item Value Reference Range Interpretation Comments MCH (test code = MCH) 29.6 pg 27.0-31.0 [facility] PlanoWuibafpCMWHZTJPGE5298-06-23 02:38:00 Test Item Value Reference Range Interpretation Comments MCHC (test code = MCHC) 33.6 32.0-36.0 [facility] PlanoVbkojulBNZFLPKPLJ9264-75-71 02:38:00 Test Item Value Reference Range Interpretation Comments MPV (test code = MPV) 9.4 7.4-10.4 [facility] PlanoNuvfhvtXQHDFJZHXX8968-56-27 02:38:00 Test Item Value Reference Range Interpretation Comments RDW (test code = RDW) 13.4 11.5-14.5 [facility] PlanoNwnhmomACZYCDSJTT1137-26-10 02:38:00 Test Item Value Reference Range Interpretation Comments Platelet (test code = Platelet) 145 133-450 [place] [address]2016-12-08 02:38:00 Test Item Value Reference Range Interpretation Comments Salicylate Lvl (test no gt See_Comment [Autom ated message] The code = Salicylate Lvl) syste m which generated this result tra nsmitted reference range : <=30.0. The reference r annemarie was not used to int erpret this result as normal/abnormal . [place] [address]2016-12-08 02:38:00 Test Item Value Reference Range Interpretation Comments Acetaminoph Lvl (test code (04/06/16 8:38 PM) 10-20 = Acetaminoph Lvl) [facility] [id number] 02:38:00 Test Item Value Reference Range Interpretation Comments Influ B (test code = Negative (04/06/16 8:38 Influ B) PM) [facility] KZARIVID0887-11-42 02:38:00 Test Item Value Reference Range Interpretation Comments Influ A (test code = Negative (04/06/16 8:38 Influ A) PM) [facility]CxqlqioLITGGIRFU1837-13-37 06:42:00 Test Item Value Reference Range Interpretation Comments B/C Ratio (test code = B/C Ratio) 8 6-25 N [facility] HoustonJzhlsxrDCTFSXGCX0181-56-73 06:42:00 Test Item Value Reference Range Interpretation Comments Globulin (test code = Globulin) 2.5 2.0-4.0 N [facility] HoustonXubjmexXKKOICQYY8188-88-71 06:42:00 Test Item Value Reference Range Interpretation Comments AGAP (test code = AGAP) 16.9 10.0-20.0 N [facility] HoustonEjpsgvbIGVQYFDDV0287-15-35 06:42:00 Test Item Value Reference Range Interpretation Comments A/G Ratio (test code = A/G Ratio) 1.6 0.7-1.6 N [facility] HoustonUeggjqqJNDOJUPVX6903-41-92 06:42:00 Test Item Value Reference Range Interpretation Comments eGFR (test code = eGFR) 105 [facility] HoustonYimpdjtAJQHFHTGH1988 06:42:00 Test Item Value Reference Range Interpretation Comments Glucose Lvl (test code = Glucose Lvl) 109 70-99 H [facility] HoustonJltoiobATPURXMZG9146-37-00 06:42:00 Test Item Value Reference Range Interpretation Comments ALT (test code = ALT) 26 See_Comment N [Auto mated message] The system which ge nerated this result transmit abdelrahman reference range : <=65. The reference range was not used to interpr et this result as gurpreet l/abnormal. [facility] HoustonKufrcokKHSNQMRLS3329-55-06 06:42:00 Test Item Value Reference Range Interpretation Comments Albumin Lvl (test code = Albumin Lvl) 3.9 3.5-5.0 N [facility] HoustonUvcfgfbXKOTTLTAX0123-22-77 06:42:00 Test Item Value Reference Range Interpretation Comments Alk Phos (test code = Alk Phos) 47 39-136 N [facility] HoustonQilffloFRFGWSKWC7267-24-16 06:42:00 Test Item Value Reference Range Interpretation Comments Total Protein (test code = Total 6.4 6.4-8.4 N Protein) [facility] HoustonQhuoiueMHUXPVEHP6273-66-65 06:42:00 Test Item Value Reference Range Interpretation Comments AST (test code = AST) 31 See_Comment N [Auto mated message] The system which ge nerated this result transmit abdelrahman reference range : <=37. The reference range was not used to interpr et this result as gurpreet l/abnormal. [facility] HoustonSdtstqqRXKEURSLP7145-67-92 06:42:00 Test Item Value Reference Range Interpretation Comments Calcium Lvl (test code = Calcium Lvl) 9.0 8.5-10.5 N [facility] HoustonWyyucavWQVMQQHCM9746-48-23 06:42:00 Test Item Value Reference Range Interpretation Comments Bili Total (test code = Bili Total) 0.4 0.2-1.3 N [facility] HoustonWulsbvkMXCMBILEU9161-72-34 06:42:00 Test Item Value Reference Range Interpretation Comments Chloride Lvl (test code = Chloride Lvl) 104 95-109 N [facility] HoustonPinxdtyAGAJFNOWU8564-09-74 06:42:00 Test Item Value Reference Range Interpretation Comments CO2 (test code = CO2) 24 24-32 N [facility] HoustonYbyeaekSCXKHRDKP7256-42-87 06:42:00 Test Item Value Reference Range Interpretation Comments Sodium Lvl (test code = Sodium Lvl) 141 135-145 N [facility] HoustonAxbjefjHNHFHVQZP7256-91-35 06:42:00 Test Item Value Reference Range Interpretation Comments Potassium Lvl (test code = Potassium 3.9 3.5-5.1 N Lvl) [facility] HoustonOvroexpXSHCUQHZA7938-78-85 06:42:00 Test Item Value Reference Range Interpretation Comments BUN (test code = BUN) 8 7-22 N [facility] HoustonBpspzhpDOMFZOHYI3489-29-24 06:42:00 Test Item Value Reference Range Interpretation Comments Creatinine Lvl (test code = Creatinine 1.0 0.5-1.4 N Lvl) [facility]anoWkpuashFWCCLTEJFS9123-68-86 06:42:00 Test Item Value Reference Range Interpretation Comments MCH (test code = MCH) 30.2 pg 27.0-31.0 N [facility] PlanoIyyausbISCMPULPUR5055-88-77 06:42:00 Test Item Value Reference Range Interpretation Comments Platelet (test code = Platelet) 134 133-450 N [facility] PlanoUfizpxqBGFANINRBJ1513-11-31 06:42:00 Test Item Value Reference Range Interpretation Comments MPV (test code = MPV) 10.1 7.4-10.4 N [facility] PlanoWxeamuhFPRVGEFVTS1422-07-80 06:42:00 Test Item Value Reference Range Interpretation Comments RDW (test code = RDW) 13.4 11.5-14.5 N [facility] PlanoOaxtkhiUMHJGGGHUL4172-14-27 06:42:00 Test Item Value Reference Range Interpretation Comments Hct (test code = Hct) 39.4 42.0-54.0 L [facility] PlanoFwgyuixLNXVVUIPUY3212-93-75 06:42:00 Test Item Value Reference Range Interpretation Comments MCV (test code = MCV) 89.5 80.0-94.0 N [facility] PlanoNfubukmYWZENDBTTL3408-29-87 06:42:00 Test Item Value Reference Range Interpretation Comments Hgb (test code = Hgb) 13.3 14.0-18.0 L [facility] PlanoAfnbtguPUHIKZQMSD5710-61-44 06:42:00 Test Item Value Reference Range Interpretation Comments MCHC (test code = MCHC) 33.7 32.0-36.0 N [facility] PlanoIansvpwFUGMMEGDUI9011-64-10 06:42:00 Test Item Value Reference Range Interpretation Comments WBC (test code = WBC) 12.5 3.7-10.4 H [facility] PlanoBpmoiijODBUAPKKOV1792-88-77 06:42:00 Test Item Value Reference Range Interpretation Comments RBC (test code = RBC) 4.40 4.70-6.10 L [facility] PlanoOahmoplBGDDAUQISA6785-10-55 06:42:00 Test Item Value Reference Range Interpretation Comments Lymphocytes (test code = Lymphocytes) 9.4 20.0-40.0 L [facility] PlanoWvenkqgYOANOZLQET0720-85-47 06:42:00 Test Item Value Reference Range Interpretation Comments Monocytes (test code = Monocytes) 10.8 2.0-12.0 N [facility] PlanoSftaifbTTGGDZNXHD5239-24-87 06:42:00 Test Item Value Reference Range Interpretation Comments Segs (test code = Segs) 79.6 45.0-75.0 H [facility] PlanoQaqqfftZCQGRZROHJ3880-94-16 06:42:00 Test Item Value Reference Range Interpretation Comments Eosinophils (test code = 0.1 See_Comment N [A utomated message] The Eosinophils) system which ge nerated this result tra nsmitted reference range : <=4.0. The reference r annemarie was not used to int erpret this result as normal/abnormal . [facility] PlanoZmdoekoPGAXFBKFSE3787-75-66 06:42:00 Test Item Value Reference Range Interpretation Comments Basophils (test code = 0.1 See_Comment N [Aut omated message] The Basophils) system which ge nerated this result tra nsmitted reference range : <=1.0. The reference r annemarie was not used to int erpret this result as normal/abnormal . [facility] PlanoWkcxfpgPHPJBIUAQN2034-69-35 06:42:00 Test Item Value Reference Range Interpretation Comments Segs-Bands # (test code = Segs-Bands #) 9.9 1.5-8.1 H [facility] PlanoAubklomVOCWMOAPUK5143-15-24 06:42:00 Test Item Value Reference Range Interpretation Comments Lymphocytes # (test code = Lymphocytes 1.2 1.0-5.5 N #) [facility] PlanoQlfzpxwDPESZPTLYD4468-69-36 06:42:00 Test Item Value Reference Range Interpretation Comments Monocytes # (test code 1.3 See_Comment H [Aut omated message] The = Monocytes #) system which generated this result tra nsmitted reference range : <=0.8. The reference r annemarie was not used to int erpret this result as normal/abnormal . [facility] HoustonRveamdyILYDGOJBT4343-39-13 06:42:00 Test Item Value Reference Range Interpretation Comments B/C Ratio (test code = B/C Ratio) 8 6-25 N [facility] HoustonLuobnomQHQACDMRP8789-79-91 06:42:00 Test Item Value Reference Range Interpretation Comments Globulin (test code = Globulin) 2.5 2.0-4.0 N [facility] HoustonFjncxjcXWHQGSQYB4222-98-86 06:42:00 Test Item Value Reference Range Interpretation Comments AGAP (test code = AGAP) 16.9 10.0-20.0 N [facility] HoustonUqkfchwIZMLHKTFJ9558-81-19 06:42:00 Test Item Value Reference Range Interpretation Comments A/G Ratio (test code = A/G Ratio) 1.6 0.7-1.6 N [facility] HoustonNmfspmbDRDKBDSFQ1747-74-92 06:42:00 Test Item Value Reference Range Interpretation Comments eGFR (test code = eGFR) 105 [facility] CenterGqimuaiCHWRJRAWS2717-64-13 06:42:00 Test Item Value Reference Range Interpretation Comments Glucose Lvl (test code = Glucose Lvl) 109 70-99 H [facility] HoustonBylhpkkEGDRGAXNS6989-65-57 06:42:00 Test Item Value Reference Range Interpretation Comments ALT (test code = ALT) 26 See_Comment N [Auto mated message] The system which ge nerated this result transmit abdelrahman reference range : <=65. The reference range was not used to interpr et this result as gurpreet l/abnormal. [facility] CenterVsyeplvIKLLUBPGM2344-46-73 06:42:00 Test Item Value Reference Range Interpretation Comments Albumin Lvl (test code = Albumin Lvl) 3.9 3.5-5.0 N [facility] CenterSxfgjelDKCIJRBED4324-46-30 06:42:00 Test Item Value Reference Range Interpretation Comments Alk Phos (test code = Alk Phos) 47 39-136 N [facility] CenterRqmvgznPZACNFANI6929-13-87 06:42:00 Test Item Value Reference Range Interpretation Comments Total Protein (test code = Total 6.4 6.4-8.4 N Protein) [facility] HoustonLftifjcAJIGGBEIR0168-53-03 06:42:00 Test Item Value Reference Range Interpretation Comments AST (test code = AST) 31 See_Comment N [Auto mated message] The system which ge nerated this result transmit abdelrahman reference range : <=37. The reference range was not used to interpr et this result as gurpreet l/abnormal. [facility] CenterVziduqpMDXBRGMXB9484-22-54 06:42:00 Test Item Value Reference Range Interpretation Comments Calcium Lvl (test code = Calcium Lvl) 9.0 8.5-10.5 N [facility] CenterHqscxjsJYVTJBTBP9201-52-71 06:42:00 Test Item Value Reference Range Interpretation Comments Bili Total (test code = Bili Total) 0.4 0.2-1.3 N [facility] CenterHcrgictTNLUZZUZI0537-95-66 06:42:00 Test Item Value Reference Range Interpretation Comments Chloride Lvl (test code = Chloride Lvl) 104 95-109 N [facility] CenterMeehaivTGYOSBQIH5165-42-61 06:42:00 Test Item Value Reference Range Interpretation Comments CO2 (test code = CO2) 24 24-32 N [facility] HoustonAbyvtxbCCCVXYDPH0291-82-08 06:42:00 Test Item Value Reference Range Interpretation Comments Sodium Lvl (test code = Sodium Lvl) 141 135-145 N [facility] HoustonNeeapcbCRKQZHIOM7973-91-87 06:42:00 Test Item Value Reference Range Interpretation Comments Potassium Lvl (test code = Potassium 3.9 3.5-5.1 N Lvl) [facility] HoustonXeymeitKQSVWQGJY2277-54-56 06:42:00 Test Item Value Reference Range Interpretation Comments BUN (test code = BUN) 8 7-22 N [facility] HoustonSocrcskJIDVGSOJX3865-39-68 06:42:00 Test Item Value Reference Range Interpretation Comments Creatinine Lvl (test code = Creatinine 1.0 0.5-1.4 N Lvl) [facility]anoHieldmvOREUSVLGPY2774-35-40 06:42:00 Test Item Value Reference Range Interpretation Comments MCH (test code = MCH) 30.2 pg 27.0-31.0 N [facility] PlanoGdtzlevTNROTLBIFF2073-34-98 06:42:00 Test Item Value Reference Range Interpretation Comments Platelet (test code = Platelet) 134 133-450 N [facility] PlanoMlwjdpoUCYJFLZOEH3098-56-10 06:42:00 Test Item Value Reference Range Interpretation Comments MPV (test code = MPV) 10.1 7.4-10.4 N [facility] PlanoAdwepzvZKDLNPGHDC5858-44-43 06:42:00 Test Item Value Reference Range Interpretation Comments RDW (test code = RDW) 13.4 11.5-14.5 N [facility]PcmkzvmYNBRHONMKA5184-96-80 06:42:00 Test Item Value Reference Range Interpretation Comments Hct (test code = Hct) 39.4 42.0-54.0 L [facility]anoTkinwpxLYBWRAGZHB2218-44-47 06:42:00 Test Item Value Reference Range Interpretation Comments MCV (test code = MCV) 89.5 80.0-94.0 N [facility]anoUornhozWWYIRYFTLK9494-88-01 06:42:00 Test Item Value Reference Range Interpretation Comments Hgb (test code = Hgb) 13.3 14.0-18.0 L [facility]anoSibkzvmQHRRXNPQET1936-25-45 06:42:00 Test Item Value Reference Range Interpretation Comments MCHC (test code = MCHC) 33.7 32.0-36.0 N [facility]anoTiobyakJWPLZCQYFZ4487-67-24 06:42:00 Test Item Value Reference Range Interpretation Comments WBC (test code = WBC) 12.5 3.7-10.4 H [facility]anoVjpansmUBISBMYDJK8937-48-74 06:42:00 Test Item Value Reference Range Interpretation Comments RBC (test code = RBC) 4.40 4.70-6.10 L [facility] [place]anoKdxzyrzSBTBMCLZGJ2720-53-08 06:42:00 Test Item Value Reference Range Interpretation Comments Lymphocytes (test code = Lymphocytes) 9.4 20.0-40.0 L [facility]anoZlezobfMAJFZWTYPD9595-16-06 06:42:00 Test Item Value Reference Range Interpretation Comments Monocytes (test code = Monocytes) 10.8 2.0-12.0 N [facility]anoKxqutxvGOPZLZVADB4625-59-63 06:42:00 Test Item Value Reference Range Interpretation Comments Segs (test code = Segs) 79.6 45.0-75.0 H [facility]anoAbtfacdHDDSQJULPD8904-14-48 06:42:00 Test Item Value Reference Range Interpretation Comments Eosinophils (test code = 0.1 See_Comment N [A utomated message] The Eosinophils) system which ge nerated this result tra nsmitted reference range : <=4.0. The reference r annemarie was not used to int erpret this result as normal/abnormal . [facility]anoBsuhlpbDPPHAKSSYU1682-13-87 06:42:00 Test Item Value Reference Range Interpretation Comments Basophils (test code = 0.1 See_Comment N [Aut omated message] The Basophils) system which ge nerated this result tra nsmitted reference range : <=1.0. The reference r annemarie was not used to int erpret this result as normal/abnormal . [facility]anoQbognugPFCCFYGEIE4756-07-64 06:42:00 Test Item Value Reference Range Interpretation Comments Segs-Bands # (test code = Segs-Bands #) 9.9 1.5-8.1 H [facility]anoKjvsnczHIESONXJGZ0943-36-70 06:42:00 Test Item Value Reference Range Interpretation Comments Lymphocytes # (test code = Lymphocytes 1.2 1.0-5.5 N #) [facility]anoVfipdchDUVEVBRAHQ1354-92-70 06:42:00 Test Item Value Reference Range Interpretation Comments Monocytes # (test code 1.3 See_Comment H [Aut omated message] The = Monocytes #) system which generated this result tra nsmitted reference range : <=0.8. The reference r annemarie was not used to int erpret this result as normal/abnormal . [facility]LvtqdqgDATDHHSJZ3659-36-15 06:42:00 Test Item Value Reference Range Interpretation Comments B/C Ratio (test code = B/C Ratio) 8 6-25 N [facility] HoustonXqskvkrBKCDLYNLO1089-87-24 06:42:00 Test Item Value Reference Range Interpretation Comments Globulin (test code = Globulin) 2.5 2.0-4.0 N [facility] HoustonKphpgazAXYCYJHZD0040-00-22 06:42:00 Test Item Value Reference Range Interpretation Comments AGAP (test code = AGAP) 16.9 10.0-20.0 N [facility] HoustonVpswxcoAYXIMPPSL8194-39-85 06:42:00 Test Item Value Reference Range Interpretation Comments A/G Ratio (test code = A/G Ratio) 1.6 0.7-1.6 N [facility] HoustonClmvmqwRCQQTHPCL7571-65-08 06:42:00 Test Item Value Reference Range Interpretation Comments eGFR (test code = eGFR) 105 [facility] HoustonPuimbyeNCMGSSLHM0173-34-23 06:42:00 Test Item Value Reference Range Interpretation Comments Glucose Lvl (test code = Glucose Lvl) 109 70-99 H [facility] HoustonKsjbjljCWWBQJXWL4128-40-96 06:42:00 Test Item Value Reference Range Interpretation Comments ALT (test code = ALT) 26 See_Comment N [Auto mated message] The system which ge nerated this result transmit abdelrahman reference range : <=65. The reference range was not used to interpr et this result as gurpreet l/abnormal. [facility] HoustonGrbpbxcEAYGGIBHV8012-98-75 06:42:00 Test Item Value Reference Range Interpretation Comments Albumin Lvl (test code = Albumin Lvl) 3.9 3.5-5.0 N [facility] HoustonNxzkexfWLJRNTABA4877-36-68 06:42:00 Test Item Value Reference Range Interpretation Comments Alk Phos (test code = Alk Phos) 47 39-136 N [facility] HoustonZeffixoVHNMGIJHR6130-88-37 06:42:00 Test Item Value Reference Range Interpretation Comments Total Protein (test code = Total 6.4 6.4-8.4 N Protein) [facility] HoustonOhncthyVRNTXETVR8683-30-24 06:42:00 Test Item Value Reference Range Interpretation Comments AST (test code = AST) 31 See_Comment N [Auto mated message] The system which ge nerated this result transmit abdelrahman reference range : <=37. The reference range was not used to interpr et this result as gurpreet l/abnormal. [facility] HoustonBqsrkihLOSASKMXH0397-60-00 06:42:00 Test Item Value Reference Range Interpretation Comments Calcium Lvl (test code = Calcium Lvl) 9.0 8.5-10.5 N [facility] HoustonXgvlwcsKQUXRFWSI3542-74-46 06:42:00 Test Item Value Reference Range Interpretation Comments Bili Total (test code = Bili Total) 0.4 0.2-1.3 N [facility] HoustonPqelqvzDKARBKZCJ6517-66-84 06:42:00 Test Item Value Reference Range Interpretation Comments Chloride Lvl (test code = Chloride Lvl) 104 95-109 N [facility] HoustonDbuivtkYVSWELGIZ9919-17-06 06:42:00 Test Item Value Reference Range Interpretation Comments CO2 (test code = CO2) 24 24-32 N [facility] HoustonXlbelvgXPOSKOISO5397-78-90 06:42:00 Test Item Value Reference Range Interpretation Comments Sodium Lvl (test code = Sodium Lvl) 141 135-145 N [facility] HoustonJpcifudJYVSVRDZM3716-90-51 06:42:00 Test Item Value Reference Range Interpretation Comments Potassium Lvl (test code = Potassium 3.9 3.5-5.1 N Lvl) [facility] HoustonWhfdvnvEFMIBFPCJ6025-89-93 06:42:00 Test Item Value Reference Range Interpretation Comments BUN (test code = BUN) 8 7-22 N [facility] HoustonZtudjlbZKAFHNZKB5397-46-21 06:42:00 Test Item Value Reference Range Interpretation Comments Creatinine Lvl (test code = Creatinine 1.0 0.5-1.4 N Lvl) [facility]anoJvglcjhBGMTMMAQQU5538-14-43 06:42:00 Test Item Value Reference Range Interpretation Comments MCH (test code = MCH) 30.2 pg 27.0-31.0 N [facility]anoTgleetkALQMGPCKXJ0273-75-14 06:42:00 Test Item Value Reference Range Interpretation Comments Platelet (test code = Platelet) 134 133-450 N [facility]anoJilqbzfYGUBHPHVAK4039-95-48 06:42:00 Test Item Value Reference Range Interpretation Comments MPV (test code = MPV) 10.1 7.4-10.4 N [facility]anoPaipfihSKFLBFOOBZ2065-26-28 06:42:00 Test Item Value Reference Range Interpretation Comments RDW (test code = RDW) 13.4 11.5-14.5 N [facility]anoNusinmpMUYLBMJEUU2985-62-44 06:42:00 Test Item Value Reference Range Interpretation Comments Hct (test code = Hct) 39.4 42.0-54.0 L [facility]anoBrxgqvdFULTFCMWVE4050-26-79 06:42:00 Test Item Value Reference Range Interpretation Comments MCV (test code = MCV) 89.5 80.0-94.0 N [facility]anoVqqzijbTTZEOJPCCX7086-36-79 06:42:00 Test Item Value Reference Range Interpretation Comments Hgb (test code = Hgb) 13.3 14.0-18.0 L [facility]anoVvlvyikOSHEFIAGCX7708-97-12 06:42:00 Test Item Value Reference Range Interpretation Comments MCHC (test code = MCHC) 33.7 32.0-36.0 N [facility]anoQkfeugbHSOAJSWCNI8987-74-56 06:42:00 Test Item Value Reference Range Interpretation Comments WBC (test code = WBC) 12.5 3.7-10.4 H [facility]anoEclbecgOAYWXVFPQS6978-29-78 06:42:00 Test Item Value Reference Range Interpretation Comments RBC (test code = RBC) 4.40 4.70-6.10 L [facility]anoXqmdobgXDHCBZVNTM2729-14-68 06:42:00 Test Item Value Reference Range Interpretation Comments Lymphocytes (test code = Lymphocytes) 9.4 20.0-40.0 L [facility]anoCwmhzcfUKJAMXSWTM2580-46-47 06:42:00 Test Item Value Reference Range Interpretation Comments Monocytes (test code = Monocytes) 10.8 2.0-12.0 N [facility]anoNgzqaikRNWXSGKIJZ8097-22-70 06:42:00 Test Item Value Reference Range Interpretation Comments Segs (test code = Segs) 79.6 45.0-75.0 H [facility]anoTbcarskLWDHTNOEVR5811-14-07 06:42:00 Test Item Value Reference Range Interpretation Comments Eosinophils (test code = 0.1 See_Comment N [A utomated message] The Eosinophils) system which ge nerated this result tra nsmitted reference range : <=4.0. The reference r annemarie was not used to int erpret this result as normal/abnormal . [facility]anoQtffuhkAORANKIQAC0225-31-24 06:42:00 Test Item Value Reference Range Interpretation Comments Basophils (test code = 0.1 See_Comment N [Aut omated message] The Basophils) system which ge nerated this result tra nsmitted reference range : <=1.0. The reference r annemarie was not used to int erpret this result as normal/abnormal . [facility]anoNlfrbdeFVCREAOVDE6758-56-43 06:42:00 Test Item Value Reference Range Interpretation Comments Segs-Bands # (test code = Segs-Bands #) 9.9 1.5-8.1 H [facility]anoLvmuhktWFBSZJJNPP3511-11-44 06:42:00 Test Item Value Reference Range Interpretation Comments Lymphocytes # (test code = Lymphocytes 1.2 1.0-5.5 N #) [facility]anoGmlvmdtDXROVNOWAV2705-23-53 06:42:00 Test Item Value Reference Range Interpretation Comments Monocytes # (test code 1.3 See_Comment H [Aut omated message] The = Monocytes #) system which generated this result tra nsmitted reference range : <=0.8. The reference r annemarie was not used to int erpret this result as normal/abnormal . [facility] HoustonJwczfhpZNKXKSQSY2592-46-31 06:42:00 Test Item Value Reference Range Interpretation Comments B/C Ratio (test code = B/C Ratio) 8 6-25 N [facility] HoustonKexyveyJTYRGGPRJ6840-81-82 06:42:00 Test Item Value Reference Range Interpretation Comments Globulin (test code = Globulin) 2.5 2.0-4.0 N [facility] HoustonUqnrfezDUPYZZJVG9183-65-65 06:42:00 Test Item Value Reference Range Interpretation Comments AGAP (test code = AGAP) 16.9 10.0-20.0 N [facility] HoustonGxxkunyNKKNRBBET9947-98-27 06:42:00 Test Item Value Reference Range Interpretation Comments A/G Ratio (test code = A/G Ratio) 1.6 0.7-1.6 N [facility] HoustonYsutdgdFTAAPBLMB4393-50-09 06:42:00 Test Item Value Reference Range Interpretation Comments eGFR (test code = eGFR) 105 [facility] HoustonAoybbrsMBFDFHNVJ5928-40-65 06:42:00 Test Item Value Reference Range Interpretation Comments Glucose Lvl (test code = Glucose Lvl) 109 70-99 H [facility] CenterTdxbnttQBQLOAKAV2055-21-39 06:42:00 Test Item Value Reference Range Interpretation Comments ALT (test code = ALT) 26 See_Comment N [Auto mated message] The system which ge nerated this result transmit abdelrahman reference range : <=65. The reference range was not used to interpr et this result as gurpreet l/abnormal. [facility] CenterCknnyxpHIQJZDSBS4648-87-20 06:42:00 Test Item Value Reference Range Interpretation Comments Albumin Lvl (test code = Albumin Lvl) 3.9 3.5-5.0 N [facility] CenterPlcwwtcOHKMUFRDX0230-00-82 06:42:00 Test Item Value Reference Range Interpretation Comments Alk Phos (test code = Alk Phos) 47 39-136 N [facility] CenterSlsmegnJKFYRCNYP3880-53-21 06:42:00 Test Item Value Reference Range Interpretation Comments Total Protein (test code = Total 6.4 6.4-8.4 N Protein) [facility] CenterDvstbojAPCWWVNTM4967-69-83 06:42:00 Test Item Value Reference Range Interpretation Comments AST (test code = AST) 31 See_Comment N [Auto mated message] The system which ge nerated this result transmit abdelrahman reference range : <=37. The reference range was not used to interpr et this result as gurpreet l/abnormal. [facility] CenterYxrextoZWGHAHFRH3188-69-18 06:42:00 Test Item Value Reference Range Interpretation Comments Calcium Lvl (test code = Calcium Lvl) 9.0 8.5-10.5 N [facility] CenterSugpmahKNKNAOKIB1523-61-75 06:42:00 Test Item Value Reference Range Interpretation Comments Bili Total (test code = Bili Total) 0.4 0.2-1.3 N [facility] CenterJqlwdynIOHSJGLET0064-23-29 06:42:00 Test Item Value Reference Range Interpretation Comments Chloride Lvl (test code = Chloride Lvl) 104 95-109 N [facility] CenterQfnbnitUMUXPCNNO3142-87-44 06:42:00 Test Item Value Reference Range Interpretation Comments CO2 (test code = CO2) 24 24-32 N [facility] CenterCkrowdpZSQKOVXNM7845-66-04 06:42:00 Test Item Value Reference Range Interpretation Comments Sodium Lvl (test code = Sodium Lvl) 141 135-145 N [facility] CenterOxspprzJPRWITXID5976-66-60 06:42:00 Test Item Value Reference Range Interpretation Comments Potassium Lvl (test code = Potassium 3.9 3.5-5.1 N Lvl) [facility] HoustonZgoyopqYMVNMWSMP0311-24-67 06:42:00 Test Item Value Reference Range Interpretation Comments BUN (test code = BUN) 8 7-22 N [facility] HoustonRzchcayVMNVLQYXD9804-16-61 06:42:00 Test Item Value Reference Range Interpretation Comments Creatinine Lvl (test code = Creatinine 1.0 0.5-1.4 N Lvl) [facility]anoXzkhuwrEEBSRDDIGC4740-17-43 06:42:00 Test Item Value Reference Range Interpretation Comments MCH (test code = MCH) 30.2 pg 27.0-31.0 N [facility]anoZgintnuXBPNIKPOAM6893-14-94 06:42:00 Test Item Value Reference Range Interpretation Comments Platelet (test code = Platelet) 134 133-450 N [facility]anoFunymfbLTIXQMYIBH7575-88-61 06:42:00 Test Item Value Reference Range Interpretation Comments MPV (test code = MPV) 10.1 7.4-10.4 N [facility]anoBlygnhjSMHINLABMS5282-40-11 06:42:00 Test Item Value Reference Range Interpretation Comments RDW (test code = RDW) 13.4 11.5-14.5 N [facility]anoJmqfpdaDUAKEVALWA1393-53-35 06:42:00 Test Item Value Reference Range Interpretation Comments Hct (test code = Hct) 39.4 42.0-54.0 L [facility]anoHhchxpyXFREIIKABZ1785-00-86 06:42:00 Test Item Value Reference Range Interpretation Comments MCV (test code = MCV) 89.5 80.0-94.0 N [facility]anoOehrmypKHDZRBCWKW4390-51-98 06:42:00 Test Item Value Reference Range Interpretation Comments Hgb (test code = Hgb) 13.3 14.0-18.0 L [facility]anoXkowqblVZDLUWJYBP6951-61-55 06:42:00 Test Item Value Reference Range Interpretation Comments MCHC (test code = MCHC) 33.7 32.0-36.0 N [facility]anoAuzqeeeAYUDJPQBCI9383-86-03 06:42:00 Test Item Value Reference Range Interpretation Comments WBC (test code = WBC) 12.5 3.7-10.4 H [facility]anoZlzgfgqZTCUZROFAQ2278-24-72 06:42:00 Test Item Value Reference Range Interpretation Comments RBC (test code = RBC) 4.40 4.70-6.10 L [facility]anoFcicemoOKPWSFBZCK9760-81-49 06:42:00 Test Item Value Reference Range Interpretation Comments Lymphocytes (test code = Lymphocytes) 9.4 20.0-40.0 L [facility]anoXuawehoOJYKEARSCZ9365-59-84 06:42:00 Test Item Value Reference Range Interpretation Comments Monocytes (test code = Monocytes) 10.8 2.0-12.0 N [facility]anoRkarbyzLNOLTKHNDL1456-19-82 06:42:00 Test Item Value Reference Range Interpretation Comments Segs (test code = Segs) 79.6 45.0-75.0 H [facility]anoLllrxpbULWONMHZYK5943-61-98 06:42:00 Test Item Value Reference Range Interpretation Comments Eosinophils (test code = 0.1 See_Comment N [A utomated message] The Eosinophils) system which ge nerated this result tra nsmitted reference range : <=4.0. The reference r annemarie was not used to int erpret this result as normal/abnormal . [facility]anoWkvuhyiBXSCIEUVBZ3647-81-96 06:42:00 Test Item Value Reference Range Interpretation Comments Basophils (test code = 0.1 See_Comment N [Aut omated message] The Basophils) system which ge nerated this result tra nsmitted reference range : <=1.0. The reference r annemarie was not used to int erpret this result as normal/abnormal . [facility]anoJlxozakXZLZPGDMQB4802-84-28 06:42:00 Test Item Value Reference Range Interpretation Comments Segs-Bands # (test code = Segs-Bands #) 9.9 1.5-8.1 H [facility]anoQyburrsNLFRQQKNSB8943-67-73 06:42:00 Test Item Value Reference Range Interpretation Comments Lymphocytes # (test code = Lymphocytes 1.2 1.0-5.5 N #) [facility]anoQfnmqajLPPKRQXUVA8744-61-56 06:42:00 Test Item Value Reference Range Interpretation Comments Monocytes # (test code 1.3 See_Comment H [Aut omated message] The = Monocytes #) system which generated this result tra nsmitted reference range : <=0.8. The reference r annemarie was not used to int erpret this result as normal/abnormal . [facility] HoustonRkqamwaJFJQYUWOU3162-33-07 06:42:00 Test Item Value Reference Range Interpretation Comments B/C Ratio (test code = B/C Ratio) 8 6-25 N [facility] HoustonEggnfapNFIDYLEKH5130-67-79 06:42:00 Test Item Value Reference Range Interpretation Comments Globulin (test code = Globulin) 2.5 2.0-4.0 N [facility] HoustonQvxxdgfMABSQSHZE4563-10-87 06:42:00 Test Item Value Reference Range Interpretation Comments AGAP (test code = AGAP) 16.9 10.0-20.0 N [facility] HoustonHbmigvuFHLDYZXUR0193-69-47 06:42:00 Test Item Value Reference Range Interpretation Comments A/G Ratio (test code = A/G Ratio) 1.6 0.7-1.6 N [facility] HoustonVdciivdDPADCIJEM1666-22-49 06:42:00 Test Item Value Reference Range Interpretation Comments eGFR (test code = eGFR) 105 [facility] HoustonArvxupoZHJLGFAKT9768-20-78 06:42:00 Test Item Value Reference Range Interpretation Comments Glucose Lvl (test code = Glucose Lvl) 109 70-99 H [facility] HoustonGgiugxhWLNYMKYMB8567-08-50 06:42:00 Test Item Value Reference Range Interpretation Comments ALT (test code = ALT) 26 See_Comment N [Auto mated message] The system which ge nerated this result transmit abdelrahman reference range : <=65. The reference range was not used to interpr et this result as gurpreet l/abnormal. [facility] HoustonBjjkscxDPENIROXE1849-68-44 06:42:00 Test Item Value Reference Range Interpretation Comments Albumin Lvl (test code = Albumin Lvl) 3.9 3.5-5.0 N [facility] HoustonUfhjglqYHRDMWITJ4545-48-07 06:42:00 Test Item Value Reference Range Interpretation Comments Alk Phos (test code = Alk Phos) 47 39-136 N [facility] HoustonMwdqyxdMOXTDBJPG4325-81-95 06:42:00 Test Item Value Reference Range Interpretation Comments Total Protein (test code = Total 6.4 6.4-8.4 N Protein) [facility] HoustonShrolemORQFZMDEU4510-15-14 06:42:00 Test Item Value Reference Range Interpretation Comments AST (test code = AST) 31 See_Comment N [Auto mated message] The system which ge nerated this result transmit abdelrahman reference range : <=37. The reference range was not used to interpr et this result as gurpreet l/abnormal. [facility] HoustonNvkfvkmUHRZXJDSC4858-08-03 06:42:00 Test Item Value Reference Range Interpretation Comments Calcium Lvl (test code = Calcium Lvl) 9.0 8.5-10.5 N [facility] HoustonVhqwegeTZZLAHEJG1468-33-76 06:42:00 Test Item Value Reference Range Interpretation Comments Bili Total (test code = Bili Total) 0.4 0.2-1.3 N [facility] HoustonZxwrygkRXDSMJUVK3904-84-48 06:42:00 Test Item Value Reference Range Interpretation Comments Chloride Lvl (test code = Chloride Lvl) 104 95-109 N [facility] HoustonXjkfehcJZTDOAAAC1687-69-69 06:42:00 Test Item Value Reference Range Interpretation Comments CO2 (test code = CO2) 24 24-32 N [facility] HoustonIvuweqgMWEBSROZU3454-00-23 06:42:00 Test Item Value Reference Range Interpretation Comments Sodium Lvl (test code = Sodium Lvl) 141 135-145 N [facility] HoustonLuignnnXBUQMMWNN7717-71-44 06:42:00 Test Item Value Reference Range Interpretation Comments Potassium Lvl (test code = Potassium 3.9 3.5-5.1 N Lvl) [facility] HoustonKdlrsvcKMFFXVUNP7748-82-90 06:42:00 Test Item Value Reference Range Interpretation Comments BUN (test code = BUN) 8 7-22 N [facility] HoustonZgmpuebOZCMDQOHH5081-17-07 06:42:00 Test Item Value Reference Range Interpretation Comments Creatinine Lvl (test code = Creatinine 1.0 0.5-1.4 N Lvl) [facility]anoXucuvcfWXZXAWKLQP9283-89-41 06:42:00 Test Item Value Reference Range Interpretation Comments MCH (test code = MCH) 30.2 pg 27.0-31.0 N [facility] PlanoFikerjtKBRHRBPRUX8822-11-40 06:42:00 Test Item Value Reference Range Interpretation Comments Platelet (test code = Platelet) 134 133-450 N [facility]anoUvttkrvMFRBCIQAUA5582-30-24 06:42:00 Test Item Value Reference Range Interpretation Comments MPV (test code = MPV) 10.1 7.4-10.4 N [facility]anoRjfqmwyTAZLFRWJRY4232-75-18 06:42:00 Test Item Value Reference Range Interpretation Comments RDW (test code = RDW) 13.4 11.5-14.5 N [facility] PlanoIjyntdlGZGWLNTHJQ3724-72-64 06:42:00 Test Item Value Reference Range Interpretation Comments Hct (test code = Hct) 39.4 42.0-54.0 L [facility]anoVkwjuppSJNOJVVONF8267-58-15 06:42:00 Test Item Value Reference Range Interpretation Comments MCV (test code = MCV) 89.5 80.0-94.0 N [facility] PlanoOzgtimmTRRNBPWTRH9199-64-83 06:42:00 Test Item Value Reference Range Interpretation Comments Hgb (test code = Hgb) 13.3 14.0-18.0 L [facility]anoRseqjwpMQSUKHFNTV7850-67-65 06:42:00 Test Item Value Reference Range Interpretation Comments MCHC (test code = MCHC) 33.7 32.0-36.0 N [facility]anoErejpujHTMYHYWKUB6254-85-46 06:42:00 Test Item Value Reference Range Interpretation Comments WBC (test code = WBC) 12.5 3.7-10.4 H [facility]anoWjlgdkdYMQKYGQZLG6854-79-70 06:42:00 Test Item Value Reference Range Interpretation Comments RBC (test code = RBC) 4.40 4.70-6.10 L [facility] PlanoLcgvezjXKXVOZQUSL2383-80-23 06:42:00 Test Item Value Reference Range Interpretation Comments Lymphocytes (test code = Lymphocytes) 9.4 20.0-40.0 L [facility]anoYiopietRENXVZZPNB9756-44-05 06:42:00 Test Item Value Reference Range Interpretation Comments Monocytes (test code = Monocytes) 10.8 2.0-12.0 N [facility]anoUsqhvwoWCUYHZVMZQ2441-75-38 06:42:00 Test Item Value Reference Range Interpretation Comments Segs (test code = Segs) 79.6 45.0-75.0 H [facility]anoJctpnmhZYSRHSKGUQ1669-78-36 06:42:00 Test Item Value Reference Range Interpretation Comments Eosinophils (test code = 0.1 See_Comment N [A utomated message] The Eosinophils) system which ge nerated this result tra nsmitted reference range : <=4.0. The reference r annemarie was not used to int erpret this result as normal/abnormal . [facility]anoUfsgpfuSHDKITWGEW7586-60-55 06:42:00 Test Item Value Reference Range Interpretation Comments Basophils (test code = 0.1 See_Comment N [Aut omated message] The Basophils) system which ge nerated this result tra nsmitted reference range : <=1.0. The reference r annemarie was not used to int erpret this result as normal/abnormal . [facility]anoOcvskxqEOJPOLLPKP4592-46-92 06:42:00 Test Item Value Reference Range Interpretation Comments Segs-Bands # (test code = Segs-Bands #) 9.9 1.5-8.1 H [facility]anoFcgfbdpEVVQIMRXBD9513-40-30 06:42:00 Test Item Value Reference Range Interpretation Comments Lymphocytes # (test code = Lymphocytes 1.2 1.0-5.5 N #) [facility]anoKbnegnxLTXZOZMRBL6273-85-64 06:42:00 Test Item Value Reference Range Interpretation Comments Monocytes # (test code 1.3 See_Comment H [Aut omated message] The = Monocytes #) system which generated this result tra nsmitted reference range : <=0.8. The reference r annemarie was not used to int erpret this result as normal/abnormal . [facility] HoustonDxtnpyoXDCEKGSTP5541-36-25 09:00:49 Test Item Value Reference Range Interpretation Comments Lactic Acid Lvl (test code = Lactic 2.0 0.5-2.2 N Acid Lvl) [facility] HoustonAslchueIBLNORAWP0894-62-66 09:00:49 Test Item Value Reference Range Interpretation Comments Lactic Acid Lvl (test code = Lactic 2.0 0.5-2.2 N Acid Lvl) [facility] HoustonJnuwqqaIHGPTHAKB6628-21-93 09:00:49 Test Item Value Reference Range Interpretation Comments Lactic Acid Lvl (test code = Lactic 2.0 0.5-2.2 N Acid Lvl) [facility] HoustonNfuzwrdMPZFMKONW2504-99-77 09:00:49 Test Item Value Reference Range Interpretation Comments Lactic Acid Lvl (test code = Lactic 2.0 0.5-2.2 N Acid Lvl) [facility] HoustonMsbhpgdOXVPQEPCZ4056-29-23 09:00:49 Test Item Value Reference Range Interpretation Comments Lactic Acid Lvl (test code = Lactic 2.0 0.5-2.2 N Acid Lvl) [facility] HoustonDlqabhlVYPCDEKAQ0387-85-19 03:30:38 Test Item Value Reference Range Interpretation Comments UDS Note (test code = See Note 5(12/28/2012 N UDS Note) 22:30:38) [facility] HoustonYiyzkleFNVQIIXRF1725-78-05 03:30:38 Test Item Value Reference Range Interpretation Comments U Phencyc Scr (test Negative code = U Phencyc Scr) *NA*(12/28/2012 22:30:38) [facility] HoustonNyhgbtlJFNLHTPLU8681-90-62 03:30:38 Test Item Value Reference Range Interpretation Comments U Opiate Scr (test Positive A code = U Opiate Scr) *ABN*(12/28/2012 22:30:38) [facility] HoustonWxpdkbcOWEKPDNKQ6709-96-52 03:30:38 Test Item Value Reference Range Interpretation Comments U Cannab Scr (test Negative code = U Cannab Scr) *NA*(12/28/2012 22:30:38) [facility] HoustonKvelxsnASBYOPRPH0413-23-25 03:30:38 Test Item Value Reference Range Interpretation Comments U Benzodia Scr (test Negative code = U Benzodia Scr) *NA*(12/28/2012 22:30:38) [facility] HoustonWskiqihIHBLMUPTH0020-91-05 03:30:38 Test Item Value Reference Range Interpretation Comments U Odalys Scr (test code Negative *NA*(12/28/2012 = U Odalys Scr) 22:30:38) [facility] HoustonPdhtdjyROCTVZXXT6592-46-13 03:30:38 Test Item Value Reference Range Interpretation Comments U Amph Scr (test code Negative *NA*(12/28/2012 = U Amph Scr) 22:30:38) [facility] HoustonXrcslabWDMSLDOHJ5848-67-24 03:30:38 Test Item Value Reference Range Interpretation Comments U Cocaine Scr (test Negative code = U Cocaine Scr) *NA*(12/28/2012 22:30:38) [facility]ennialJuncjmrYWZRSSURCR0503-09-05 03:30:38 Test Item Value Reference Range Interpretation Comments UA Ketones (test code Negative mg/dL = UA Ketones) *NA*(12/28/2012 22:30:38) [facility]ennialKxnbhhgTHKVAJWIZM0631-89-70 03:30:38 Test Item Value Reference Range Interpretation Comments UA Bili (test code = Negative *NA*(12/28/2012 UA Bili) 22:30:38) [facility] CentennialOsevvmrNBRPOWDCKE4287-46-16 03:30:38 Test Item Value Reference Range Interpretation Comments UA Nitrite (test code Negative (12/28/2012 N = UA Nitrite) 22:30:38) [facility]ennialYrzzhqrLIIPHEXSGV8336-83-17 03:30:38 Test Item Value Reference Range Interpretation Comments UA Urobilinogen (test code = UA 0.2 0.1-1.0 N Urobilinogen) [facility] CentennialQnickodVPNRGVFLSR7756-23-75 03:30:38 Test Item Value Reference Range Interpretation Comments UA Blood (test code = Negative (12/28/2012 N UA Blood) 22:30:38) [facility] AmericaIuawbsyUKRPHBKMJV2385-59-81 03:30:38 Test Item Value Reference Range Interpretation Comments UA Leuk Est (test Negative (12/28/2012 N code = UA Leuk Est) 22:30:38) [facility] CentennialOiqhuaqYALKIJNPLG5824-83-94 03:30:38 Test Item Value Reference Range Interpretation Comments UA pH (test code = UA pH) 7.0 1 5.0-8.0 N [facility] CentennialIvwelmoVMVPBYGWAZ7847-61-85 03:30:38 Test Item Value Reference Range Interpretation Comments UA Glucose (test code Negative mg/dL N = UA Glucose) (12/28/2012 22:30:38) [facility] CentennialRjirledCRJZUJQKGY6737-14-87 03:30:38 Test Item Value Reference Range Interpretation Comments UA Spec Grav (test code = UA Spec 1.010 1 N Grav) [facility] CentennialZunvuqcMJLRVBMXJE4666-99-22 03:30:38 Test Item Value Reference Range Interpretation Comments UA Protein (test code Negative mg/dL N = UA Protein) (12/28/2012 22:30:38) [facility] CentennialWuagaraSRYCILEZFA1336-10-15 03:30:38 Test Item Value Reference Range Interpretation Comments UA Turbidity (test code = Clear (12/28/2012 N UA Turbidity) 22:30:38) [facility] CentennialWulwhcxANRGCDFVIC3473-31-10 03:30:38 Test Item Value Reference Range Interpretation Comments UA Color (test code = Yellow *NA*(12/28/2012 UA Color) 22:30:38) [facility] HoustonLhcxgscECJEAELNV2500-02-48 03:30:38 Test Item Value Reference Range Interpretation Comments UDS Note (test code = See Note 5(12/28/2012 N UDS Note) 22:30:38) [facility] HoustonUfqkvuzGRRTLAMIY6051-30-01 03:30:38 Test Item Value Reference Range Interpretation Comments U Phencyc Scr (test Negative code = U Phencyc Scr) *NA*(12/28/2012 22:30:38) [facility] HoustonPiwdjkvEPPMVRLZG6450-10-46 03:30:38 Test Item Value Reference Range Interpretation Comments U Opiate Scr (test Positive A code = U Opiate Scr) *ABN*(12/28/2012 22:30:38) [facility] HoustonZlgbotnVFICTBRKD9721-59-02 03:30:38 Test Item Value Reference Range Interpretation Comments U Cannab Scr (test Negative code = U Cannab Scr) *NA*(12/28/2012 22:30:38) [facility] HoustonMkpxjpgVVNSNQFCN2186-48-40 03:30:38 Test Item Value Reference Range Interpretation Comments U Benzodia Scr (test Negative code = U Benzodia Scr) *NA*(12/28/2012 22:30:38) [facility] HoustonEryzbheIUIUDXVER0718-40-06 03:30:38 Test Item Value Reference Range Interpretation Comments U Odalys Scr (test code Negative *NA*(12/28/2012 = U Odalys Scr) 22:30:38) [facility] HoustonIodppoyXYBUPMQBC7123-04-51 03:30:38 Test Item Value Reference Range Interpretation Comments U Amph Scr (test code Negative *NA*(12/28/2012 = U Amph Scr) 22:30:38) [facility] HoustonNftecimWWRBORWSZ4667-31-21 03:30:38 Test Item Value Reference Range Interpretation Comments U Cocaine Scr (test Negative code = U Cocaine Scr) *NA*(12/28/2012 22:30:38) [facility] CentennialMufsijwBERJPAHAMU5525-20-01 03:30:38 Test Item Value Reference Range Interpretation Comments UA Ketones (test code Negative mg/dL = UA Ketones) *NA*(12/28/2012 22:30:38) [facility]ennialOvydcvrDFAULGDCAP7685-72-20 03:30:38 Test Item Value Reference Range Interpretation Comments UA Bili (test code = Negative *NA*(12/28/2012 UA Bili) 22:30:38) [facility] AmericaGxtujygHWIVQLXFAC3447-35-03 03:30:38 Test Item Value Reference Range Interpretation Comments UA Nitrite (test code Negative (12/28/2012 N = UA Nitrite) 22:30:38) [facility] CentennialUlhwgojAMQEISDQOV7930-66-24 03:30:38 Test Item Value Reference Range Interpretation Comments UA Urobilinogen (test code = UA 0.2 0.1-1.0 N Urobilinogen) [facility] CentennialUujvanuQLPYJBVYRL8580-78-84 03:30:38 Test Item Value Reference Range Interpretation Comments UA Blood (test code = Negative (12/28/2012 N UA Blood) 22:30:38) [facility] AmericaJzmcqyaRUTLXOJQGO4248-57-04 03:30:38 Test Item Value Reference Range Interpretation Comments UA Leuk Est (test Negative (12/28/2012 N code = UA Leuk Est) 22:30:38) [facility]ennialWjdqyeiRCNLAXYVSQ8292-67-96 03:30:38 Test Item Value Reference Range Interpretation Comments UA pH (test code = UA pH) 7.0 1 5.0-8.0 N [facility] CentennialJgwympwBGTUNENHRQ1457-98-19 03:30:38 Test Item Value Reference Range Interpretation Comments UA Glucose (test code Negative mg/dL N = UA Glucose) (12/28/2012 22:30:38) [facility] CentennialGwrlnulUNSJYYMDEV4648-18-54 03:30:38 Test Item Value Reference Range Interpretation Comments UA Spec Grav (test code = UA Spec 1.010 1 N Grav) [facility] CentennialXpytgdgUBOXKGVGAC9266-11-64 03:30:38 Test Item Value Reference Range Interpretation Comments UA Protein (test code Negative mg/dL N = UA Protein) (12/28/2012 22:30:38) [facility] CentennialQkedqcxDUKKWMJGXN7804-10-89 03:30:38 Test Item Value Reference Range Interpretation Comments UA Turbidity (test code = Clear (12/28/2012 N UA Turbidity) 22:30:38) [facility] CentennialMxgtmwpVGBDYQAYMM8248-37-90 03:30:38 Test Item Value Reference Range Interpretation Comments UA Color (test code = Yellow *NA*(12/28/2012 UA Color) 22:30:38) [facility] HoustonGdakoadKQCAGZCUZ5271-45-94 03:30:38 Test Item Value Reference Range Interpretation Comments UDS Note (test code = See Note 5(12/28/2012 N UDS Note) 22:30:38) [facility] HoustonHlhbotcLEPMGTNRV9576-80-30 03:30:38 Test Item Value Reference Range Interpretation Comments U Phencyc Scr (test Negative code = U Phencyc Scr) *NA*(12/28/2012 22:30:38) [facility] HoustonYrvbpwoNUSRKQLEC7227-51-16 03:30:38 Test Item Value Reference Range Interpretation Comments U Opiate Scr (test Positive A code = U Opiate Scr) *ABN*(12/28/2012 22:30:38) [facility] HoustonTwnxlyhGJMTDYHCX6198-12-65 03:30:38 Test Item Value Reference Range Interpretation Comments U Cannab Scr (test Negative code = U Cannab Scr) *NA*(12/28/2012 22:30:38) [facility] HoustonZibundeFRLYSIRAH6620-25-79 03:30:38 Test Item Value Reference Range Interpretation Comments U Benzodia Scr (test Negative code = U Benzodia Scr) *NA*(12/28/2012 22:30:38) [facility] HoustonOlejkzlMNZGVEVKU4681-18-34 03:30:38 Test Item Value Reference Range Interpretation Comments U Odalys Scr (test code Negative *NA*(12/28/2012 = U Odalys Scr) 22:30:38) [facility] HoustonYfucnqnPWHMVZYHZ0254-24-38 03:30:38 Test Item Value Reference Range Interpretation Comments U Amph Scr (test code Negative *NA*(12/28/2012 = U Amph Scr) 22:30:38) [facility] HoustonWnyhpofIUUIYDRMZ0914-34-60 03:30:38 Test Item Value Reference Range Interpretation Comments U Cocaine Scr (test Negative code = U Cocaine Scr) *NA*(12/28/2012 22:30:38) [facility] CentennialTzjbxxhZDOVHHDLUH1650-10-78 03:30:38 Test Item Value Reference Range Interpretation Comments UA Ketones (test code Negative mg/dL = UA Ketones) *NA*(12/28/2012 22:30:38) [facility] CentennialGvqdpjgKIVYYAMPLL2013-71-54 03:30:38 Test Item Value Reference Range Interpretation Comments UA Bili (test code = Negative *NA*(12/28/2012 UA Bili) 22:30:38) [facility]ennialEgwbdcrEZMELZEZUK9546-85-51 03:30:38 Test Item Value Reference Range Interpretation Comments UA Nitrite (test code Negative (12/28/2012 N = UA Nitrite) 22:30:38) [facility]YaqcmxyGDBYALVPTZ2758-60-00 03:30:38 Test Item Value Reference Range Interpretation Comments UA Urobilinogen (test code = UA 0.2 0.1-1.0 N Urobilinogen) [facility]ennialHjtkbsfYBFBJLDJHC8057-81-07 03:30:38 Test Item Value Reference Range Interpretation Comments UA Blood (test code = Negative (12/28/2012 N UA Blood) 22:30:38) [facility]ennialFxcjszzYKOCYPCVZF9852-50-24 03:30:38 Test Item Value Reference Range Interpretation Comments UA Leuk Est (test Negative (12/28/2012 N code = UA Leuk Est) 22:30:38) [facility] CentennialMeuhkquYENHSNHDPT5895-22-29 03:30:38 Test Item Value Reference Range Interpretation Comments UA pH (test code = UA pH) 7.0 1 5.0-8.0 N [facility] CentennialWjbpmnyVSAZIYUCOT7694-36-32 03:30:38 Test Item Value Reference Range Interpretation Comments UA Glucose (test code Negative mg/dL N = UA Glucose) (12/28/2012 22:30:38) [facility] CentennialFzgjllyHRZVYPYTMR6278-42-55 03:30:38 Test Item Value Reference Range Interpretation Comments UA Spec Grav (test code = UA Spec 1.010 1 N Grav) [facility] CentennialThpppvbFXOVZNFSBT0901-76-59 03:30:38 Test Item Value Reference Range Interpretation Comments UA Protein (test code Negative mg/dL N = UA Protein) (12/28/2012 22:30:38) [facility] CentennialZzcougaPKISNPMMWX6416-11-77 03:30:38 Test Item Value Reference Range Interpretation Comments UA Turbidity (test code = Clear (12/28/2012 N UA Turbidity) 22:30:38) [facility]ennialMdokdqlGFVNXRASUZ5029-59-01 03:30:38 Test Item Value Reference Range Interpretation Comments UA Color (test code = Yellow *NA*(12/28/2012 UA Color) 22:30:38) [facility] HoustonYdfubrsADCMVGZEQ1184-70-24 03:30:38 Test Item Value Reference Range Interpretation Comments UDS Note (test code = See Note 5(12/28/2012 N UDS Note) 22:30:38) [facility] HoustonKwgksehSNKGBWYNZ9916-67-17 03:30:38 Test Item Value Reference Range Interpretation Comments U Phencyc Scr (test Negative code = U Phencyc Scr) *NA*(12/28/2012 22:30:38) [facility] HoustonPfzhjxyHKRGMLXHB4213-64-83 03:30:38 Test Item Value Reference Range Interpretation Comments U Opiate Scr (test Positive A code = U Opiate Scr) *ABN*(12/28/2012 22:30:38) [facility] HoustonLkzxjpwTTKHECBXN7802-67-35 03:30:38 Test Item Value Reference Range Interpretation Comments U Cannab Scr (test Negative code = U Cannab Scr) *NA*(12/28/2012 22:30:38) [facility] HoustonAtpleyoQRYKBXEQH5935-50-64 03:30:38 Test Item Value Reference Range Interpretation Comments U Benzodia Scr (test Negative code = U Benzodia Scr) *NA*(12/28/2012 22:30:38) [facility] HoustonEmexejwDZZTELRZC4132-39-63 03:30:38 Test Item Value Reference Range Interpretation Comments U Odalys Scr (test code Negative *NA*(12/28/2012 = U Odalys Scr) 22:30:38) [facility] HoustonWzbzdywAVCCDRXBE1213-10-72 03:30:38 Test Item Value Reference Range Interpretation Comments U Amph Scr (test code Negative *NA*(12/28/2012 = U Amph Scr) 22:30:38) [facility] HoustonQpznodtMKNQXCNVU7105-82-46 03:30:38 Test Item Value Reference Range Interpretation Comments U Cocaine Scr (test Negative code = U Cocaine Scr) *NA*(12/28/2012 22:30:38) [facility]ennialQwxwtpyMGJMNDWWGT5244-20-94 03:30:38 Test Item Value Reference Range Interpretation Comments UA Ketones (test code Negative mg/dL = UA Ketones) *NA*(12/28/2012 22:30:38) [facility] CentennialDkniialWHTZJVYWOL1751-37-84 03:30:38 Test Item Value Reference Range Interpretation Comments UA Bili (test code = Negative *NA*(12/28/2012 UA Bili) 22:30:38) [facility] CentennialPoqhhgiSPPCJBBIRK3229-88-90 03:30:38 Test Item Value Reference Range Interpretation Comments UA Nitrite (test code Negative (12/28/2012 N = UA Nitrite) 22:30:38) [facility] CentennialKibusezJDNWRAYERX5966-01-44 03:30:38 Test Item Value Reference Range Interpretation Comments UA Urobilinogen (test code = UA 0.2 0.1-1.0 N Urobilinogen) [facility] CentennialAaiomtfWYQQENBXKK3212-80-11 03:30:38 Test Item Value Reference Range Interpretation Comments UA Blood (test code = Negative (12/28/2012 N UA Blood) 22:30:38) [facility] CentennialNmjiswwRBSKWPWIUU3550-38-32 03:30:38 Test Item Value Reference Range Interpretation Comments UA Leuk Est (test Negative (12/28/2012 N code = UA Leuk Est) 22:30:38) [facility]ennialPzavnxlVSMKUODKOT5086-92-10 03:30:38 Test Item Value Reference Range Interpretation Comments UA pH (test code = UA pH) 7.0 1 5.0-8.0 N [facility] CentennialYapmgpqHXIUPWWSJI5470-75-49 03:30:38 Test Item Value Reference Range Interpretation Comments UA Glucose (test code Negative mg/dL N = UA Glucose) (12/28/2012 22:30:38) [facility] CentennialXjsjwohDITWLINSJE4633-98-48 03:30:38 Test Item Value Reference Range Interpretation Comments UA Spec Grav (test code = UA Spec 1.010 1 N Grav) [facility]ennialPqwjiozPZASZRZWZJ3924-36-82 03:30:38 Test Item Value Reference Range Interpretation Comments UA Protein (test code Negative mg/dL N = UA Protein) (12/28/2012 22:30:38) [facility] CentennialJvdfkgwXYWLNNWQCI9682-06-44 03:30:38 Test Item Value Reference Range Interpretation Comments UA Turbidity (test code = Clear (12/28/2012 N UA Turbidity) 22:30:38) [facility] CentennialVvhxemlSFVQOVYNVH3221-15-21 03:30:38 Test Item Value Reference Range Interpretation Comments UA Color (test code = Yellow *NA*(12/28/2012 UA Color) 22:30:38) [facility] HoustonPicxxxfPANVTYGFO4361-56-37 03:30:38 Test Item Value Reference Range Interpretation Comments UDS Note (test code = See Note 5(12/28/2012 N UDS Note) 22:30:38) [facility] HoustonIjtfmdzAYGICARUH8663-15-68 03:30:38 Test Item Value Reference Range Interpretation Comments U Phencyc Scr (test Negative code = U Phencyc Scr) *NA*(12/28/2012 22:30:38) [facility] HoustonFosrqraJYMCRBPAK5568-22-78 03:30:38 Test Item Value Reference Range Interpretation Comments U Opiate Scr (test Positive A code = U Opiate Scr) *ABN*(12/28/2012 22:30:38) [facility] HoustonOidvnrgCXWVMANSR8682-90-95 03:30:38 Test Item Value Reference Range Interpretation Comments U Cannab Scr (test Negative code = U Cannab Scr) *NA*(12/28/2012 22:30:38) [facility] HoustonTrmgjicRJRFJXQDO0376-58-75 03:30:38 Test Item Value Reference Range Interpretation Comments U Benzodia Scr (test Negative code = U Benzodia Scr) *NA*(12/28/2012 22:30:38) [facility] HoustonBjqfsdzOMZIOFEVW7839-23-77 03:30:38 Test Item Value Reference Range Interpretation Comments U Odalys Scr (test code Negative *NA*(12/28/2012 = U Odalys Scr) 22:30:38) [facility] HoustonNslouzuZGIYPBQEP5840-26-56 03:30:38 Test Item Value Reference Range Interpretation Comments U Amph Scr (test code Negative *NA*(12/28/2012 = U Amph Scr) 22:30:38) [facility] HoustonTcrprzpFJZXGWRTA0198-17-04 03:30:38 Test Item Value Reference Range Interpretation Comments U Cocaine Scr (test Negative code = U Cocaine Scr) *NA*(12/28/2012 22:30:38) [facility]ennialIgzlhhbUJQVTCGHDX1117-91-69 03:30:38 Test Item Value Reference Range Interpretation Comments UA Ketones (test code Negative mg/dL = UA Ketones) *NA*(12/28/2012 22:30:38) [facility] CentennialJgpridzJRMMZYGDSE2171-58-46 03:30:38 Test Item Value Reference Range Interpretation Comments UA Bili (test code = Negative *NA*(12/28/2012 UA Bili) 22:30:38) [facility] CentennialFrumxbwYRKRIKRTPJ6221-27-94 03:30:38 Test Item Value Reference Range Interpretation Comments UA Nitrite (test code Negative (12/28/2012 N = UA Nitrite) 22:30:38) [facility] CentennialJzmcoiiQKMQXZREOJ1009-68-06 03:30:38 Test Item Value Reference Range Interpretation Comments UA Urobilinogen (test code = UA 0.2 0.1-1.0 N Urobilinogen) [facility] CentennialOmsldpcCFCJDTMTKL2047-43-07 03:30:38 Test Item Value Reference Range Interpretation Comments UA Blood (test code = Negative (12/28/2012 N UA Blood) 22:30:38) [facility] CentennialRwbotgbGJFTXAXGEY9803-26-25 03:30:38 Test Item Value Reference Range Interpretation Comments UA Leuk Est (test Negative (12/28/2012 N code = UA Leuk Est) 22:30:38) [facility] CentennialNhjkuxvWICLKSIRUV0006-53-84 03:30:38 Test Item Value Reference Range Interpretation Comments UA pH (test code = UA pH) 7.0 1 5.0-8.0 N [facility] CentennialBaittwxNBCTEFIQPN5880-03-27 03:30:38 Test Item Value Reference Range Interpretation Comments UA Glucose (test code Negative mg/dL N = UA Glucose) (12/28/2012 22:30:38) [facility] CentennialBpsqsybGERTZLIJLP4878-29-40 03:30:38 Test Item Value Reference Range Interpretation Comments UA Spec Grav (test code = UA Spec 1.010 1 N Grav) [facility] CentennialWsexyxaJDHPSHNEQQ2440-73-54 03:30:38 Test Item Value Reference Range Interpretation Comments UA Protein (test code Negative mg/dL N = UA Protein) (12/28/2012 22:30:38) [facility] CentennialJuwnlexKHUQUYFYRQ0016-78-82 03:30:38 Test Item Value Reference Range Interpretation Comments UA Turbidity (test code = Clear (12/28/2012 N UA Turbidity) 22:30:38) [facility] CentennialZwmxuqdTFJEERISJW9511-04-09 03:30:38 Test Item Value Reference Range Interpretation Comments UA Color (test code = Yellow *NA*(12/28/2012 UA Color) 22:30:38) [facility] CentennialQydmxfpPZGUECFDMB2643-55-68 03:30:21 Test Item Value Reference Range Interpretation Comments UA Bacteria (test code = None Seen (12/28/2012 N UA Bacteria) 22:30:21) [facility] CentennialZdncmmdVBXZONCSRL2752-97-79 03:30:21 Test Item Value Reference Range Interpretation Comments Micro? (test code = Performed (12/28/2012 N Micro?) 22:30:21) [facility] CentennialFricjqdJMMTRMGRDW7624-88-89 03:30:21 Test Item Value Reference Range Interpretation Comments UA Sq Epi (test code = None Seen (12/28/2012 N UA Sq Epi) 22:30:21) [facility] HospitalSaaxzqdXYKAYBMIGY6914-60-63 03:30:21 Test Item Value Reference Range Interpretation Comments UA WBC (test code = UA 0-2 /HPF (12/28/2012 N WBC) 22:30:21) [facility] CenterQyosiigKEVPXLJYMC4843-00-88 03:30:21 Test Item Value Reference Range Interpretation Comments UA RBC (test None Seen See_Comment N [Automated mes olga] code = UA RBC) (12/28/2012 The system ich 22:30:21) generated this result transmitted ref erence range: <=2. The reference range was not used to int erpret this result as normal/abnormal . [facility] CenterVyzqankVSKIRIIIAE2944-64-28 03:30:21 Test Item Value Reference Range Interpretation Comments UA Bacteria (test code = None Seen (12/28/2012 N UA Bacteria) 22:30:21) [facility]ISTSDWW5778-85-61 03:30:21 Test Item Value Reference Range Interpretation Comments Micro? (test code = Performed (12/28/2012 N Micro?) 22:30:21) [facility] HospitalVkmzgpsWZYGZPOXAM9975-50-55 03:30:21 Test Item Value Reference Range Interpretation Comments UA Sq Epi (test code = None Seen (12/28/2012 N UA Sq Epi) 22:30:21) [facility] CenterPizojegIBUCLHABSQ0542-15-90 03:30:21 Test Item Value Reference Range Interpretation Comments UA WBC (test code = UA 0-2 /HPF (12/28/2012 N WBC) 22:30:21) [facility] HospitalFutxmmhYIPDGFDYSZ4089-47-39 03:30:21 Test Item Value Reference Range Interpretation Comments UA RBC (test None Seen See_Comment N [Automated mes olga] code = UA RBC) (12/28/2012 The system ich 22:30:21) generated this result transmitted ref erence range: <=2. The reference range was not used to int erpret this result as normal/abnormal . [facility] CenterPghuyvfUQTWIQGZUD5084-43-46 03:30:21 Test Item Value Reference Range Interpretation Comments UA Bacteria (test code = None Seen (12/28/2012 N UA Bacteria) 22:30:21) [facility] WkshdzfHZZEDEJPUL4058-30-58 03:30:21 Test Item Value Reference Range Interpretation Comments Micro? (test code = Performed (12/28/2012 N Micro?) 22:30:21) [facility] RkepexxMJBTLBWGMH5711-57-38 03:30:21 Test Item Value Reference Range Interpretation Comments UA Sq Epi (test code = None Seen (12/28/2012 N UA Sq Epi) 22:30:21) [facility] PbjqmnqCTFMEIWKSL3621-37-90 03:30:21 Test Item Value Reference Range Interpretation Comments UA WBC (test code = UA 0-2 /HPF (12/28/2012 N WBC) 22:30:21) [facility] CenterTccqtznTRIVYVSXTG3464-03-84 03:30:21 Test Item Value Reference Range Interpretation Comments UA RBC (test None Seen See_Comment N [Automated mes olga] code = UA RBC) (12/28/[address] [facility] 22:30:21) generated this result transmitted ref erence range: <=2. The reference range was not used to int erpret this result as normal/abnormal . [facility] CenterAymqkmmCXMHJZYCCF2142-97-75 03:30:21 Test Item Value Reference Range Interpretation Comments UA Bacteria (test code = None Seen (12/28/2012 N UA Bacteria) 22:30:21) [facility] CenterUovxczkZRWDGMNCHQ9273-03-04 03:30:21 Test Item Value Reference Range Interpretation Comments Micro? (test code = Performed (12/28/2012 N Micro?) 22:30:21) [facility] CenterFtgftwtIYTJKMTGAO3486-55-90 03:30:21 Test Item Value Reference Range Interpretation Comments UA Sq Epi (test code = None Seen (12/28/2012 N UA Sq Epi) 22:30:21) [facility] LpchlytXMAPGJAIXP9134-77-68 03:30:21 Test Item Value Reference Range Interpretation Comments UA WBC (test code = UA 0-2 /HPF (12/28/2012 N WBC) 22:30:21) [facility] CenterTeyfukaMJWXRCOHRE7480-80-30 03:30:21 Test Item Value Reference Range Interpretation Comments UA RBC (test None Seen See_Comment N [Automated mes olga] code = UA RBC) (12/28/[address] [facility] 22:30:21) generated this result transmitted ref erence range: <=2. The reference range was not used to int erpret this result as normal/abnormal . [facility] DrsazogYSBGPTWKKD8480-89-55 03:30:21 Test Item Value Reference Range Interpretation Comments UA Bacteria (test code = None Seen (12/28/2012 N UA Bacteria) 22:30:21) [facility] CenterSvrolrbWJZAKWTFKC4829-07-66 03:30:21 Test Item Value Reference Range Interpretation Comments Micro? (test code = Performed (12/28/2012 N Micro?) 22:30:21) [facility] NspdaqxZYIVBRUWRN6849-59-78 03:30:21 Test Item Value Reference Range Interpretation Comments UA Sq Epi (test code = None Seen (12/28/2012 N UA Sq Epi) 22:30:21) [facility] CenterSdlavtnXIDJONOILE0730-86-77 03:30:21 Test Item Value Reference Range Interpretation Comments UA WBC (test code = UA 0-2 /HPF (12/28/2012 N WBC) 22:30:21) [facility] GibmvxsOWZUHUPMUP2403-07-75 03:30:21 Test Item Value Reference Range Interpretation Comments UA RBC (test None Seen See_Comment N [Automated mes olga] code = UA RBC) (12/28/[address] [facility] 22:30:21) generated this result transmitted ref erence range: <=2. The reference range was not used to int erpret this result as normal/abnormal . [facility] AILKWIX6034-23-47 02:00:00 Test Item Value Reference Range Interpretation Comments ABO/Rh (test code = ABO/Rh) B NEG [facility] XSVNAKQ8603-03-34 02:00:00 Test Item Value Reference Range Interpretation Comments Antibody Scrn (test Negative (12/28/2012 N code = Antibody Scrn) 21:00:00) [facility] KAQUMCP6148-12-80 02:00:00 Test Item Value Reference Range Interpretation Comments ABO/Rh (test code = ABO/Rh) B NEG [facility] FOSICLJ2471-28-57 02:00:00 Test Item Value Reference Range Interpretation Comments Antibody Scrn (test Negative (12/28/2012 N code = Antibody Scrn) 21:00:00) [facility] [place] NGZEJAA0136-95-07 02:00:00 Test Item Value Reference Range Interpretation Comments ABO/Rh (test code = ABO/Rh) B NEG [facility] [place] QYCENZD3769-29-54 02:00:00 Test Item Value Reference Range Interpretation Comments Antibody Scrn (test Negative (12/28/2012 N code = Antibody Scrn) 21:00:00) [facility] [place] MXVSCWV3893-41-53 02:00:00 Test Item Value Reference Range Interpretation Comments ABO/Rh (test code = ABO/Rh) B NEG [facility] [place] VFHHCAQ4145-50-35 02:00:00 Test Item Value Reference Range Interpretation Comments Antibody Scrn (test Negative (12/28/2012 N code = Antibody Scrn) 21:00:00) [facility] [place] XBRJXFO5585-28-17 02:00:00 Test Item Value Reference Range Interpretation Comments ABO/Rh (test code = ABO/Rh) B NEG [facility] [place] UWJVUSI2279-77-41 02:00:00 Test Item Value Reference Range Interpretation Comments Antibody Scrn (test Negative (12/28/2012 N code = Antibody Scrn) 21:00:00) [facility] TbpsrarYEMXNXUZG5600-44-22 01:56:00 Test Item Value Reference Range Interpretation Comments O2 Sat Frankie (test code = O2 Sat Frankie) 84.6 40.0-70.0 H [facility] CenterKmcylkoWJGHQTKSO6572-31-81 01:56:00 Test Item Value Reference Range Interpretation Comments Temp Frankie (test code = Temp Frankie) 37.0 [facility] TsamyjjVLMMXBONA4474-85-50 01:56:00 Test Item Value Reference Range Interpretation Comments BE Frankie (test code = -4 See_Comment L [Automa abdelrahman message] The BE Frankie) system which ge nerated this result transmit abdelrahman reference range : <=2. The reference range was not used to interpr et this result as gurpreet l/abnormal. [facility] CenterEwvydltSPCRNNYUJ3463-32-42 01:56:00 Test Item Value Reference Range Interpretation Comments HCO3 Frankie (test code = HCO3 Frankie) 20 22-26 L [facility] AoxyjbmAZZGTVUMJ2560-56-08 01:56:00 Test Item Value Reference Range Interpretation Comments pO2 Frankie (test code = pO2 Frankie) 49 20-49 N [facility] HoustonWfarwbzQKTSVWJNN6057-98-81 01:56:00 Test Item Value Reference Range Interpretation Comments pH Frankie (test code = pH Frankie) 7.41 7.28-7.42 N [facility] HoustonGmjwhjvHLTDMLZDZ4284-57-82 01:56:00 Test Item Value Reference Range Interpretation Comments pCO2 Frankie (test code = pCO2 Frankie) 31 38-52 L [facility] HoustonWgywdqgHAKVNZZXN3082-38-45 01:56:00 Test Item Value Reference Range Interpretation Comments Lactic Acid Lvl (test code = Lactic 4.4 0.5-2.2 H Acid Lvl) [facility] HoustonMvzynsuEWXMCWFMT6784-39-87 01:56:00 Test Item Value Reference Range Interpretation Comments Ethanol Lvl (test code = Ethanol Lvl) 79 [facility] HoustonRumstgiSWSTIRWRR1502-12-45 01:56:00 Test Item Value Reference Range Interpretation Comments Etoh (%) (test code = Etoh (%)) 0.079 [facility] HoustonIdkrijqAMOZROOML5525-02-33 01:56:00 Test Item Value Reference Range Interpretation Comments eGFR (test code = eGFR) 93 [facility] HoustonLmsogumRFWEWLNUO3739-66-50 01:56:00 Test Item Value Reference Range Interpretation Comments BUN (test code = BUN) 6 7-22 L [facility] HoustonBxamzdaUIPOTBXUF4054-13-44 01:56:00 Test Item Value Reference Range Interpretation Comments Creatinine Lvl (test code = Creatinine 1.1 0.5-1.4 N Lvl) [facility] HoustonJcvdtjoUNXYUFYFO3550-11-05 01:56:00 Test Item Value Reference Range Interpretation Comments Glucose Lvl (test code = Glucose Lvl) 124 70-99 H [facility] HoustonTgkwyvqFBLRGRVIW0193-98-00 01:56:00 Test Item Value Reference Range Interpretation Comments Sodium Lvl (test code = Sodium Lvl) 140 135-145 N [facility] HoustonOidrzvwWDUCEUKWZ4105-13-68 01:56:00 Test Item Value Reference Range Interpretation Comments Chloride Lvl (test code = Chloride Lvl) 103 95-109 N [facility] HoustonOxuqzwfNCEMPKLMH8033-75-09 01:56:00 Test Item Value Reference Range Interpretation Comments CO2 (test code = CO2) 21 24-32 L [facility] HoustonVakzrdhQWOJSUGSK4096-65-26 01:56:00 Test Item Value Reference Range Interpretation Comments Potassium Lvl (test code = Potassium 3.1 3.5-5.1 L Lvl) [facility] HoustonWfihfyfOKRCYZBXB7228-41-84 01:56:00 Test Item Value Reference Range Interpretation Comments Calcium Lvl (test code = Calcium Lvl) 8.6 8.5-10.5 N [facility] HoustonSrusqzeAALVOAMCZ5569-60-82 01:56:00 Test Item Value Reference Range Interpretation Comments AGAP (test code = AGAP) 19.1 10.0-20.0 N [facility]anoZukeyrwOHBEPDIYPD3375-59-18 01:56:00 Test Item Value Reference Range Interpretation Comments Estimated % Lysis (test 1.3 See_Comment N [Au tomated message] The code = Estimated % system wh ich generated Lysis) this result tra nsmitted reference range : <=7.5. The reference r annemarie was not used to int erpret this result as normal/abnormal . [facility]anoBaspmyzQCEWFZLMDT7086-16-08 01:56:00 Test Item Value Reference Range Interpretation Comments K-time (test code = K-time) 2.2 min 0.6-2.3 N [facility]anoSqvmqynHGEOHSJULM0198-88-34 01:56:00 Test Item Value Reference Range Interpretation Comments Angle (test code = Angle) 64 degrees 64-80 N [facility]anoWlnjhhrVUWOTGXLAY3403-31-82 01:56:00 Test Item Value Reference Range Interpretation Comments Max Amp (test code = Max Amp) 58 mm 52-71 N [facility]anoHtorzwgCTJSLKYBXJ6952-75-81 01:56:00 Test Item Value Reference Range Interpretation Comments R-time (test code = R-time) 0.8 min 0.4-0.7 H [facility]anoDchdedbFCDYZUTNMA5951-09-14 01:56:00 Test Item Value Reference Range Interpretation Comments Split Point (test code = Split Point) 0.6 min [facility] PlanoDrnafixURKSUNIRUJ9241-10-72 01:56:00 Test Item Value Reference Range Interpretation Comments Rapid TEG Sample Type Citrated Whole Blood (test code = Rapid TEG Sample Type) [facility]anoVzqrxxnSFHMJEKJJI0369-99-44 01:56:00 Test Item Value Reference Range Interpretation Comments ACT (TEG) (test code = ACT (TEG)) 121 s 86-118 H [facility] PlanoOfihlcpLVNPUVWWKB1767-43-61 01:56:00 Test Item Value Reference Range Interpretation Comments G-value (test code = G-value) 6.9 5.0-11.6 N [facility]anoEhayrrzOPRFUEMTDX5528-56-87 01:56:00 Test Item Value Reference Range Interpretation Comments Hgb (test code = Hgb) 14.8 14.0-18.0 N [place] 278543-08-31 01:56:00 Test Item Value Reference Range Interpretation Comments RBC (test code = RBC) 5.05 4.70-6.10 N [facility] PlanoCoixibbMFOVESQPQW7386-34-92 01:56:00 Test Item Value Reference Range Interpretation Comments Hct (test code = Hct) 44.5 42.0-54.0 N [facility]anoHrsxwpcOEGFKMCSPW0160-23-51 01:56:00 Test Item Value Reference Range Interpretation Comments WBC (test code = WBC) 11.8 3.7-10.4 H [facility] PlanoOovhajxPVAGHHIGIQ5088-85-47 01:56:00 Test Item Value Reference Range Interpretation Comments MPV (test code = MPV) 9.2 7.4-10.4 N [facility]anoInknuxzYCBFXRUJNA4215-82-30 01:56:00 Test Item Value Reference Range Interpretation Comments MCHC (test code = MCHC) 33.2 32.0-36.0 N [facility]anoWnmwlwzEIPWDPAZSC7659-94-25 01:56:00 Test Item Value Reference Range Interpretation Comments MCV (test code = MCV) 88.1 80.0-94.0 N [facility] PlanoKncoenxEKQJOYPGXJ1288-68-66 01:56:00 Test Item Value Reference Range Interpretation Comments MCH (test code = MCH) 29.3 pg 27.0-31.0 N [facility] PlanoRweoceuAARVWLNAZK9441-80-13 01:56:00 Test Item Value Reference Range Interpretation Comments Platelet (test code = Platelet) 175 133-450 N [facility] PlanoKkoydsjGWGDHYIHHT9593-75-65 01:56:00 Test Item Value Reference Range Interpretation Comments RDW (test code = RDW) 12.4 11.5-14.5 N [facility]anoVvwefwnVBLDJGBPSQ7326-85-79 01:56:00 Test Item Value Reference Range Interpretation Comments Lymphocytes (test code = Lymphocytes) 14.0 20.0-40.0 L [facility]anoBhzovuaYWICIXVAKN1204-41-72 01:56:00 Test Item Value Reference Range Interpretation Comments RBC Morph (test code = Normal (12/28/2012 N RBC Morph) 20:56:00) [facility] PlanoSfuovcoPLIVQJXIXC5919-37-26 01:56:00 Test Item Value Reference Range Interpretation Comments Bands (test code = 6.0 See_Comment N [Automat ed message] The Bands) system which ge nerated this result transmit abdelrahman reference range : <=11.0. The reference r annemarie was not used to interpr et this result as gurpreet l/abnormal. [facility] PlanoJbbprwhVMLFXDLRPM9702-83-60 01:56:00 Test Item Value Reference Range Interpretation Comments Segs (test code = Segs) 72.0 45.0-75.0 N [facility] PlanoLxsgsjsGZSWERHXYM0478-18-01 01:56:00 Test Item Value Reference Range Interpretation Comments Monocytes # (test code 0.9 See_Comment H [Aut omated message] The = Monocytes #) system which generated this result tra nsmitted reference range : <=0.8. The reference r annemarie was not used to int erpret this result as normal/abnormal . [facility] PlanoCyumidgDGTARQVOTV7816-40-53 01:56:00 Test Item Value Reference Range Interpretation Comments Lymphocytes # (test code = Lymphocytes 1.7 1.0-5.5 N #) [facility] PlanoBosyivqBXLTPSLWIP1515-76-53 01:56:00 Test Item Value Reference Range Interpretation Comments Segs-Bands # (test code = Segs-Bands #) 9.2 1.5-8.1 H [facility] PlanoGribdpsGIDCCNFOUO1870-11-93 01:56:00 Test Item Value Reference Range Interpretation Comments Monocytes (test code = Monocytes) 8.0 2.0-12.0 N [facility] PlanoIpgdioqOINBRIMBPC8543-31-12 01:56:00 Test Item Value Reference Range Interpretation Comments Atypical Lymphs (test code = Atypical 0.0 N Lymphs) [facility] PlanoUszpfhvESZTOGTUZW4848-10-96 01:56:00 Test Item Value Reference Range Interpretation Comments Plt Morph (test code = Normal (12/28/2012 N Plt Morph) 20:56:00) [facility] HoustonWzgppwmKTHQVRCVI2400-14-40 01:56:00 Test Item Value Reference Range Interpretation Comments O2 Sat Frankie (test code = O2 Sat Frankie) 84.6 40.0-70.0 H [facility] HoustonWxjpghjHSKRZNTCA4457-30-63 01:56:00 Test Item Value Reference Range Interpretation Comments Temp Frankie (test code = Temp Frankei) 37.0 [facility] HoustonLplejbbWJWYOQIIN2556-00-49 01:56:00 Test Item Value Reference Range Interpretation Comments BE Frankie (test code = -4 See_Comment L [Automa abdelrahman message] The BE Frankie) system which ge nerated this result transmit abdelrahman reference range : <=2. The reference range was not used to interpr et this result as gurpreet l/abnormal. [facility] HoustonEbwjckvUQXAQSZBF8802-05-78 01:56:00 Test Item Value Reference Range Interpretation Comments HCO3 Frankie (test code = HCO3 Frankie) 20 22-26 L [facility] HoustonUgepqmoGMTJDXOYX1760-08-99 01:56:00 Test Item Value Reference Range Interpretation Comments pO2 Frankie (test code = pO2 Frankie) 49 20-49 N [facility] HoustonMyfszxsQLBUAUBDZ3834-61-85 01:56:00 Test Item Value Reference Range Interpretation Comments pH Frankie (test code = pH Frankie) 7.41 7.28-7.42 N [facility] HoustonJhhfasyUIRQBAHUO3858-33-67 01:56:00 Test Item Value Reference Range Interpretation Comments pCO2 Frankie (test code = pCO2 Frankie) 31 38-52 L [facility] HoustonNkzusgxAHCIDZZIC9512-66-39 01:56:00 Test Item Value Reference Range Interpretation Comments Lactic Acid Lvl (test code = Lactic 4.4 0.5-2.2 H Acid Lvl) [facility] HoustonEmwuvbvTRKRUKQCZ3503-11-68 01:56:00 Test Item Value Reference Range Interpretation Comments Ethanol Lvl (test code = Ethanol Lvl) 79 [facility] HoustonZvtngedEWSYWRIBS6908-75-37 01:56:00 Test Item Value Reference Range Interpretation Comments Etoh (%) (test code = Etoh (%)) 0.079 [facility] HoustonVqipskxEFUNHHPSM9561-49-01 01:56:00 Test Item Value Reference Range Interpretation Comments eGFR (test code = eGFR) 93 [facility] HoustonWggbfeoWXOZWYQRD4190-69-40 01:56:00 Test Item Value Reference Range Interpretation Comments BUN (test code = BUN) 6 7-22 L [facility] HoustonSfalodtDOLSZIXPA8579-30-96 01:56:00 Test Item Value Reference Range Interpretation Comments Creatinine Lvl (test code = Creatinine 1.1 0.5-1.4 N Lvl) [facility] HoustonBamqrayRFBZCOYPU1135-26-91 01:56:00 Test Item Value Reference Range Interpretation Comments Glucose Lvl (test code = Glucose Lvl) 124 70-99 H [facility] HoustonChftnuzJIRHXXSZV4847-75-85 01:56:00 Test Item Value Reference Range Interpretation Comments Sodium Lvl (test code = Sodium Lvl) 140 135-145 N [facility] HoustonKhgslfjUHHFHPWFO4112-30-63 01:56:00 Test Item Value Reference Range Interpretation Comments Chloride Lvl (test code = Chloride Lvl) 103 95-109 N [facility] HoustonYjlswciCYUOESCIT5260-20-61 01:56:00 Test Item Value Reference Range Interpretation Comments CO2 (test code = CO2) 21 24-32 L [facility] HoustonFstydytYVQXJHESH9083-89-07 01:56:00 Test Item Value Reference Range Interpretation Comments Potassium Lvl (test code = Potassium 3.1 3.5-5.1 L Lvl) [facility] HoustonLzymmjaJGMVOKZXR7563-74-00 01:56:00 Test Item Value Reference Range Interpretation Comments Calcium Lvl (test code = Calcium Lvl) 8.6 8.5-10.5 N [facility] HoustonCobaibmVSMSJVPRF0238-58-81 01:56:00 Test Item Value Reference Range Interpretation Comments AGAP (test code = AGAP) 19.1 10.0-20.0 N [facility] PlanoXuwbnusGGWXVAAWYF1719-61-10 01:56:00 Test Item Value Reference Range Interpretation Comments Estimated % Lysis (test 1.3 See_Comment N [Au tomated message] The code = Estimated % system wh ich generated Lysis) this result tra nsmitted reference range : <=7.5. The reference r annemarie was not used to int erpret this result as normal/abnormal . [facility] PlanoQcyivzmFZYKVJHEWK0879-75-16 01:56:00 Test Item Value Reference Range Interpretation Comments K-time (test code = K-time) 2.2 min 0.6-2.3 N [facility] PlanoAdhqrdyFXDAILPOMS2563-63-12 01:56:00 Test Item Value Reference Range Interpretation Comments Angle (test code = Angle) 64 degrees 64-80 N [facility] PlanoCtaqbmvBUPMPRDJZV3517-27-93 01:56:00 Test Item Value Reference Range Interpretation Comments Max Amp (test code = Max Amp) 58 mm 52-71 N [facility] PlanoMpfeozfXGQSZUTSTJ9826-84-98 01:56:00 Test Item Value Reference Range Interpretation Comments R-time (test code = R-time) 0.8 min 0.4-0.7 H [facility] PlanoBovegofIOSCIKVOIC4583-41-96 01:56:00 Test Item Value Reference Range Interpretation Comments Split Point (test code = Split Point) 0.6 min [facility] PlanoAdlcqeuEYWYKWHDZP4476-44-54 01:56:00 Test Item Value Reference Range Interpretation Comments Rapid TEG Sample Type Citrated Whole Blood (test code = Rapid TEG Sample Type) [facility] PlanoPhmbpdeUKQXVUDZCU0671-69-07 01:56:00 Test Item Value Reference Range Interpretation Comments ACT (TEG) (test code = ACT (TEG)) 121 s 86-118 H [facility] PlanoGqplzsgOWCXJAIGKS0403-08-84 01:56:00 Test Item Value Reference Range Interpretation Comments G-value (test code = G-value) 6.9 5.0-11.6 N [facility] PlanoAonphcoTEERUETEKG6356-05-27 01:56:00 Test Item Value Reference Range Interpretation Comments Hgb (test code = Hgb) 14.8 14.0-18.0 N [facility] PlanoImmyuikLNIQEAZZDY3010-35-23 01:56:00 Test Item Value Reference Range Interpretation Comments RBC (test code = RBC) 5.05 4.70-6.10 N [facility] PlanoBzlthrpMCPNLHFYXF1590-56-13 01:56:00 Test Item Value Reference Range Interpretation Comments Hct (test code = Hct) 44.5 42.0-54.0 N [facility] PlanoPauzctwEFDCFKSGVB3283-94-08 01:56:00 Test Item Value Reference Range Interpretation Comments WBC (test code = WBC) 11.8 3.7-10.4 H [facility] PlanoEfrhyzbLXOTIUSORZ2226-96-86 01:56:00 Test Item Value Reference Range Interpretation Comments MPV (test code = MPV) 9.2 7.4-10.4 N [facility] PlanoFfpwnrcXDAPJIFSQT5130-99-06 01:56:00 Test Item Value Reference Range Interpretation Comments MCHC (test code = MCHC) 33.2 32.0-36.0 N [facility] PlanoYasgrtjCACGCFZCBZ3492-15-41 01:56:00 Test Item Value Reference Range Interpretation Comments MCV (test code = MCV) 88.1 80.0-94.0 N [facility] PlanoAirqjzcIOQVIXRKRM7998-74-19 01:56:00 Test Item Value Reference Range Interpretation Comments MCH (test code = MCH) 29.3 pg 27.0-31.0 N [facility] PlanoDnjynqrNMCAZWAXPR5915-35-18 01:56:00 Test Item Value Reference Range Interpretation Comments Platelet (test code = Platelet) 175 133-450 N [facility] PlanoZiyhlneCUUTYLCNBY7850-35-98 01:56:00 Test Item Value Reference Range Interpretation Comments RDW (test code = RDW) 12.4 11.5-14.5 N [facility] [place]nohjilKDSMULDHDJ0792-82-60 01:56:00 Test Item Value Reference Range Interpretation Comments Lymphocytes (test code = Lymphocytes) 14.0 20.0-40.0 L [facility] [place]UybcfhbIHCOIGPKWW8287-12-64 01:56:00 Test Item Value Reference Range Interpretation Comments RBC Morph (test code = Normal (12/28/2012 N RBC Morph) 20:56:00) [facility] [place]anoLmnispaBAWHCYVDNO6144-56-25 01:56:00 Test Item Value Reference Range Interpretation Comments Bands (test code = 6.0 See_Comment N [Automat ed message] The Bands) system which ge nerated this result transmit abdelrahman reference range : <=11.0. The reference r annemarie was not used to interpr et this result as gurpreet l/abnormal. [facility] [place]CxjwnidHRNUXGVYQD3038-91-38 01:56:00 Test Item Value Reference Range Interpretation Comments Segs (test code = Segs) 72.0 45.0-75.0 N [facility] [place]TibdhbcRAQVLWLGTH5236-30-96 01:56:00 Test Item Value Reference Range Interpretation Comments Monocytes # (test code 0.9 See_Comment H [Aut omated message] The = Monocytes #) system which generated this result tra nsmitted reference range : <=0.8. The reference r annemarie was not used to int erpret this result as normal/abnormal . [facility] [place]NdyhmqmDFKAJVQEVO0185-65-75 01:56:00 Test Item Value Reference Range Interpretation Comments Lymphocytes # (test code = Lymphocytes 1.7 1.0-5.5 N #) [facility] [place]KugbggaTLHANSYJRF0692-49-02 01:56:00 Test Item Value Reference Range Interpretation Comments Segs-Bands # (test code = Segs-Bands #) 9.2 1.5-8.1 H [facility] [place]SrtyfwlKMSFBUROXE4607-21-86 01:56:00 Test Item Value Reference Range Interpretation Comments Monocytes (test code = Monocytes) 8.0 2.0-12.0 N [facility] [place]TjenicmFWNBQARRDL8253-02-89 01:56:00 Test Item Value Reference Range Interpretation Comments Atypical Lymphs (test code = Atypical 0.0 N Lymphs) [facility] [place]anoWrlxgcwAYOTFXMWSF4772-04-82 01:56:00 Test Item Value Reference Range Interpretation Comments Plt Morph (test code = Normal (12/28/2012 N Plt Morph) 20:56:00) [facility] [place]QxnwvvnNPXDWJSPW2333-25-95 01:56:00 Test Item Value Reference Range Interpretation Comments O2 Sat Frankie (test code = O2 Sat Frankie) 84.6 40.0-70.0 H [facility] HoustonTwgcpsvHUSQFVVNS2432-09-27 01:56:00 Test Item Value Reference Range Interpretation Comments Temp Frankie (test code = Temp Frankie) 37.0 [facility] HoustonOdxwproQOVXYOVXP7755-48-83 01:56:00 Test Item Value Reference Range Interpretation Comments BE Frankie (test code = -4 See_Comment L [Automa abdelrahman message] The BE Frankie) system which ge nerated this result transmit abdelrahman reference range : <=2. The reference range was not used to interpr et this result as gurpreet l/abnormal. [facility] HoustonLzoveswHEDBADCAV9234-49-30 01:56:00 Test Item Value Reference Range Interpretation Comments HCO3 Frankie (test code = HCO3 Frankie) 20 22-26 L [facility] HoustonRnppngfAWUWLWMJW5820-93-91 01:56:00 Test Item Value Reference Range Interpretation Comments pO2 Frankie (test code = pO2 Frankie) 49 20-49 N [facility] HoustonMnkdclxJPGQSBTBP5153-83-89 01:56:00 Test Item Value Reference Range Interpretation Comments pH Frankie (test code = pH Frankie) 7.41 7.28-7.42 N [facility] HoustonMqxhfceFIEXJETUC2989-98-78 01:56:00 Test Item Value Reference Range Interpretation Comments pCO2 Frankie (test code = pCO2 Frankie) 31 38-52 L [facility] HoustonPtcoeibRZKIXQUNJ6622-55-91 01:56:00 Test Item Value Reference Range Interpretation Comments Lactic Acid Lvl (test code = Lactic 4.4 0.5-2.2 H Acid Lvl) [facility] HoustonEvpydpsMEDWINLGK6520-53-56 01:56:00 Test Item Value Reference Range Interpretation Comments Ethanol Lvl (test code = Ethanol Lvl) 79 [facility] HoustonXcdyqugNYCQFKIFZ8462-82-48 01:56:00 Test Item Value Reference Range Interpretation Comments Etoh (%) (test code = Etoh (%)) 0.079 [facility] HoustonKhufabvCTFFOIENP5701-80-92 01:56:00 Test Item Value Reference Range Interpretation Comments eGFR (test code = eGFR) 93 [facility] HoustonNpwkdzmWYYEAQUTJ7784-79-41 01:56:00 Test Item Value Reference Range Interpretation Comments BUN (test code = BUN) 6 7-22 L [facility] HoustonShiqkqhQRTBZCUPS2143-59-31 01:56:00 Test Item Value Reference Range Interpretation Comments Creatinine Lvl (test code = Creatinine 1.1 0.5-1.4 N Lvl) [facility] HoustonPztwsyzBHKQNZVNI6619-40-15 01:56:00 Test Item Value Reference Range Interpretation Comments Glucose Lvl (test code = Glucose Lvl) 124 70-99 H [facility] HoustonOhwcasdJUAPQQVTQ0431-39-11 01:56:00 Test Item Value Reference Range Interpretation Comments Sodium Lvl (test code = Sodium Lvl) 140 135-145 N [facility] HoustonEyxvmewBBVTPNHUK8882-73-80 01:56:00 Test Item Value Reference Range Interpretation Comments Chloride Lvl (test code = Chloride Lvl) 103 95-109 N [facility] HoustonJjraayuLZDEOLNXE3325-89-08 01:56:00 Test Item Value Reference Range Interpretation Comments CO2 (test code = CO2) 21 24-32 L [facility] HoustonSktgxmeNVGCDQNCO1300-04-53 01:56:00 Test Item Value Reference Range Interpretation Comments Potassium Lvl (test code = Potassium 3.1 3.5-5.1 L Lvl) [facility] HoustonYrbkmveCYNAVIMPW3670-14-15 01:56:00 Test Item Value Reference Range Interpretation Comments Calcium Lvl (test code = Calcium Lvl) 8.6 8.5-10.5 N [facility] HoustonZvlzgroRQQHXKBCD7349-59-83 01:56:00 Test Item Value Reference Range Interpretation Comments AGAP (test code = AGAP) 19.1 10.0-20.0 N [facility] [place]CnusuipFONHISTRBZ6743-67-57 01:56:00 Test Item Value Reference Range Interpretation Comments Estimated % Lysis (test 1.3 See_Comment N [Au tomated message] The code = Estimated % system wh ich generated Lysis) this result tra nsmitted reference range : <=7.5. The reference r annemarie was not used to int erpret this result as normal/abnormal . [facility] [place]anoJjkdzulTSCIAJZCXB9630-92-33 01:56:00 Test Item Value Reference Range Interpretation Comments K-time (test code = K-time) 2.2 min 0.6-2.3 N [facility] [place]DfxrovmMUTHLADMLW4201-82-48 01:56:00 Test Item Value Reference Range Interpretation Comments Angle (test code = Angle) 64 degrees 64-80 N [facility] [place]MjinbbxAHDHSROJLE1115-15-88 01:56:00 Test Item Value Reference Range Interpretation Comments Max Amp (test code = Max Amp) 58 mm 52-71 N [facility] [place]anoUlrspydGNOEMBWMWQ9401-95-89 01:56:00 Test Item Value Reference Range Interpretation Comments R-time (test code = R-time) 0.8 min 0.4-0.7 H [place] [address]-08-31 01:56:00 Test Item Value Reference Range Interpretation Comments Split Point (test code = Split Point) 0.6 min [facility] [place]SirhcnjADLPLCEFPO5358-55-88 01:56:00 Test Item Value Reference Range Interpretation Comments Rapid TEG Sample Type Citrated Whole Blood (test code = Rapid TEG Sample Type) [facility] [place]anoLoyjyhlMQDCFARBZH9716-48-16 01:56:00 Test Item Value Reference Range Interpretation Comments ACT (TEG) (test code = ACT (TEG)) 121 s 86-118 H [facility] [place]MfbzqtaYIJDVFUPUZ2358-69-03 01:56:00 Test Item Value Reference Range Interpretation Comments G-value (test code = G-value) 6.9 5.0-11.6 N [facility] [place]anoLrkrovoYTONUREGXH0379-88-50 01:56:00 Test Item Value Reference Range Interpretation Comments Hgb (test code = Hgb) 14.8 14.0-18.0 N [facility] [place]anoOzpeeboMHOMWTAOYQ0508-79-66 01:56:00 Test Item Value Reference Range Interpretation Comments RBC (test code = RBC) 5.05 4.70-6.10 N [facility] [place]anoJjpzykcWKHURFZKZY5929-17-22 01:56:00 Test Item Value Reference Range Interpretation Comments Hct (test code = Hct) 44.5 42.0-54.0 N [facility] [place]anoJikaryfEBBKABMTNL8396-07-62 01:56:00 Test Item Value Reference Range Interpretation Comments WBC (test code = WBC) 11.8 3.7-10.4 H [facility] [place]anoFsgpncdWJJVSBADLP1856-66-59 01:56:00 Test Item Value Reference Range Interpretation Comments MPV (test code = MPV) 9.2 7.4-10.4 N [facility] [place]KvcziyxGXUWJPSREA3098-69-14 01:56:00 Test Item Value Reference Range Interpretation Comments MCHC (test code = MCHC) 33.2 32.0-36.0 N [facility] [place]VgtopbnWHFADPHIQX9093-56-19 01:56:00 Test Item Value Reference Range Interpretation Comments MCV (test code = MCV) 88.1 80.0-94.0 N [facility] [place]UudgwxsPZYTEUZWJA9135-44-97 01:56:00 Test Item Value Reference Range Interpretation Comments MCH (test code = MCH) 29.3 pg 27.0-31.0 N [facility] [place]QojssxbMMJERAOFFD2682-10-48 01:56:00 Test Item Value Reference Range Interpretation Comments Platelet (test code = Platelet) 175 133-450 N [facility] [place]anoAsmoofgFEFUPXWBOW0668-60-39 01:56:00 Test Item Value Reference Range Interpretation Comments RDW (test code = RDW) 12.4 11.5-14.5 N [facility] [place]anoLcxfjgaWHJPKLBLGE6315-14-86 01:56:00 Test Item Value Reference Range Interpretation Comments Lymphocytes (test code = Lymphocytes) 14.0 20.0-40.0 L [facility] [place]anoBjbumkxZCKHUJWFPX4991-54-85 01:56:00 Test Item Value Reference Range Interpretation Comments RBC Morph (test code = Normal (12/28/2012 N RBC Morph) 20:56:00) [facility] [place]anoUkrvmdfZTAVDYPQTX6722-99-86 01:56:00 Test Item Value Reference Range Interpretation Comments Bands (test code = 6.0 See_Comment N [Automat ed message] The Bands) system which ge nerated this result transmit abdelrahman reference range : <=11.0. The reference r annemarie was not used to interpr et this result as gurpreet l/abnormal. [facility] [place]anoNaixdmfIXAGWJEGMU6444-48-66 01:56:00 Test Item Value Reference Range Interpretation Comments Segs (test code = Segs) 72.0 45.0-75.0 N [facility] [place]XwyqknhCBONIETKIM9445-51-98 01:56:00 Test Item Value Reference Range Interpretation Comments Monocytes # (test code 0.9 See_Comment H [Aut omated message] The = Monocytes #) system which generated this result tra nsmitted reference range : <=0.8. The reference r annemarie was not used to int erpret this result as normal/abnormal . [facility] [place]anoTbkffqjWEWTQMVCZV1303-09-70 01:56:00 Test Item Value Reference Range Interpretation Comments Lymphocytes # (test code = Lymphocytes 1.7 1.0-5.5 N #) [facility] [place]PkklhqhPDKJGXXHTE6092-41-80 01:56:00 Test Item Value Reference Range Interpretation Comments Segs-Bands # (test code = Segs-Bands #) 9.2 1.5-8.1 H [facility] [place]CtrbhobWEKVZNWZRK2160-39-16 01:56:00 Test Item Value Reference Range Interpretation Comments Monocytes (test code = Monocytes) 8.0 2.0-12.0 N [facility] [place]anoWrrlugpISKLMMEFXG1126-37-86 01:56:00 Test Item Value Reference Range Interpretation Comments Atypical Lymphs (test code = Atypical 0.0 N Lymphs) [facility] [place]anoTtpssnkZYDETIVQJU4097-08-22 01:56:00 Test Item Value Reference Range Interpretation Comments Plt Morph (test code = Normal (12/28/2012 N Plt Morph) 20:56:00) [facility] HoustonZlsouvmOHKDUTNKE7837-25-41 01:56:00 Test Item Value Reference Range Interpretation Comments O2 Sat Frankie (test code = O2 Sat Frankie) 84.6 40.0-70.0 H [facility] HoustonMmshsecCZWIDXPRP8016-56-80 01:56:00 Test Item Value Reference Range Interpretation Comments Temp Frankie (test code = Temp Frankie) 37.0 [facility] HoustonNkbyyfeTHMFTOOYW8618-32-04 01:56:00 Test Item Value Reference Range Interpretation Comments BE Frankie (test code = -4 See_Comment L [Automa abdelrahman message] The BE Frankie) system which ge nerated this result transmit abdelrahman reference range : <=2. The reference range was not used to interpr et this result as gurpreet l/abnormal. [facility] HoustonHzlehfgRLWLBEITW8996-87-72 01:56:00 Test Item Value Reference Range Interpretation Comments HCO3 Frankie (test code = HCO3 Frankie) 20 22-26 L [facility] HoustonJedmhknGCLRZRLZN9541-50-71 01:56:00 Test Item Value Reference Range Interpretation Comments pO2 Frankie (test code = pO2 Frankie) 49 20-49 N [facility] HoustonCnrnsitVZYRYDZZU7284-91-73 01:56:00 Test Item Value Reference Range Interpretation Comments pH Frankie (test code = pH Frankie) 7.41 7.28-7.42 N [facility] HoustonIeenscoUEEBNGNHZ9284-57-97 01:56:00 Test Item Value Reference Range Interpretation Comments pCO2 Frankie (test code = pCO2 Frankie) 31 38-52 L [facility] HoustonOdlsljoPVCLLRDKE1805-47-86 01:56:00 Test Item Value Reference Range Interpretation Comments Lactic Acid Lvl (test code = Lactic 4.4 0.5-2.2 H Acid Lvl) [facility] HoustonPcfullgTERMSMRIN6093-01-89 01:56:00 Test Item Value Reference Range Interpretation Comments Ethanol Lvl (test code = Ethanol Lvl) 79 [facility] HoustonDarbknsYYVHRAWJT9895-24-35 01:56:00 Test Item Value Reference Range Interpretation Comments Etoh (%) (test code = Etoh (%)) 0.079 [facility] HoustonGwuiprbCHSWAWNET6744-15-91 01:56:00 Test Item Value Reference Range Interpretation Comments eGFR (test code = eGFR) 93 [facility] HoustonBrijehcAWSPNJHTA8497-74-91 01:56:00 Test Item Value Reference Range Interpretation Comments BUN (test code = BUN) 6 7-22 L [facility] HoustonWdqhephCJRJOFWXE0357-29-22 01:56:00 Test Item Value Reference Range Interpretation Comments Creatinine Lvl (test code = Creatinine 1.1 0.5-1.4 N Lvl) [facility] HoustonQhddyemPHHPFSBRW8326-06-26 01:56:00 Test Item Value Reference Range Interpretation Comments Glucose Lvl (test code = Glucose Lvl) 124 70-99 H [facility] HoustonJpegmgrXYIOWTBQS4805-47-08 01:56:00 Test Item Value Reference Range Interpretation Comments Sodium Lvl (test code = Sodium Lvl) 140 135-145 N [facility] HoustonXglrlvdTJOZMYKVX4537-98-63 01:56:00 Test Item Value Reference Range Interpretation Comments Chloride Lvl (test code = Chloride Lvl) 103 95-109 N [facility] HoustonMzzhuhnKVKEFJFBV8564-55-13 01:56:00 Test Item Value Reference Range Interpretation Comments CO2 (test code = CO2) 21 24-32 L [facility] HoustonDbcginnMZGPARMRX5202-67-41 01:56:00 Test Item Value Reference Range Interpretation Comments Potassium Lvl (test code = Potassium 3.1 3.5-5.1 L Lvl) [facility] HoustonCheuhncCVNKIRCFY6914-23-13 01:56:00 Test Item Value Reference Range Interpretation Comments Calcium Lvl (test code = Calcium Lvl) 8.6 8.5-10.5 N [facility] HoustonTwutyoaEODRMCOZI5887-69-03 01:56:00 Test Item Value Reference Range Interpretation Comments AGAP (test code = AGAP) 19.1 10.0-20.0 N [facility] [place]anoLnpjqxzINSUNASDIW3858-95-77 01:56:00 Test Item Value Reference Range Interpretation Comments Estimated % Lysis (test 1.3 See_Comment N [Au tomated message] The code = Estimated % system wh ich generated Lysis) this result tra nsmitted reference range : <=7.5. The reference r annemarie was not used to int erpret this result as normal/abnormal . [facility] [place]KhzfoldZMRVHSVSAF5100-97-51 01:56:00 Test Item Value Reference Range Interpretation Comments K-time (test code = K-time) 2.2 min 0.6-2.3 N [facility] [place]anoEjalbyxKBGWNTVECB4680-05-02 01:56:00 Test Item Value Reference Range Interpretation Comments Angle (test code = Angle) 64 degrees 64-80 N [facility] [place]anoMuneyrgAZAYWLUHAF9570-55-72 01:56:00 Test Item Value Reference Range Interpretation Comments Max Amp (test code = Max Amp) 58 mm 52-71 N [facility] [place]anoSnkxfjaAKJLNMAFXU2105-44-85 01:56:00 Test Item Value Reference Range Interpretation Comments R-time (test code = R-time) 0.8 min 0.4-0.7 H [facility] [place]anoLaokjzdMVKFGGBQQD7953-88-58 01:56:00 Test Item Value Reference Range Interpretation Comments Split Point (test code = Split Point) 0.6 min [facility] [place]MkrvugoSLKMEHFHOE8223-99-09 01:56:00 Test Item Value Reference Range Interpretation Comments Rapid TEG Sample Type Citrated Whole Blood (test code = Rapid TEG Sample Type) [facility] [place]anoEvaknzhWHNSWCXUDD3897-46-33 01:56:00 Test Item Value Reference Range Interpretation Comments ACT (TEG) (test code = ACT (TEG)) 121 s 86-118 H [facility] [place]anoYlkbiejWENUSJKYTE3660-89-82 01:56:00 Test Item Value Reference Range Interpretation Comments G-value (test code = G-value) 6.9 5.0-11.6 N [facility] [place]anoYaaozymRBOBOBIMCA3889-49-85 01:56:00 Test Item Value Reference Range Interpretation Comments Hgb (test code = Hgb) 14.8 14.0-18.0 N [facility] [place]anoRjjfhebRBIUAXZTGI4414-24-73 01:56:00 Test Item Value Reference Range Interpretation Comments RBC (test code = RBC) 5.05 4.70-6.10 N [facility] [place]anoAriazgxCBZWZKYAYE7679-95-01 01:56:00 Test Item Value Reference Range Interpretation Comments Hct (test code = Hct) 44.5 42.0-54.0 N [facility] [place]anoJuctzufCSJYCQYKTT7052-05-49 01:56:00 Test Item Value Reference Range Interpretation Comments WBC (test code = WBC) 11.8 3.7-10.4 H [facility] [place]anoKcxxtyyNRWPVLUDTY6219-51-53 01:56:00 Test Item Value Reference Range Interpretation Comments MPV (test code = MPV) 9.2 7.4-10.4 N [facility] [place]anoVklbefuWQFXDWTSDV2336-73-39 01:56:00 Test Item Value Reference Range Interpretation Comments MCHC (test code = MCHC) 33.2 32.0-36.0 N [facility] [place]anoYurzgddTDDINCOXPS5054-87-21 01:56:00 Test Item Value Reference Range Interpretation Comments MCV (test code = MCV) 88.1 80.0-94.0 N [facility] [place]anoWqqnrxxKOKCVNIVOJ6514-26-10 01:56:00 Test Item Value Reference Range Interpretation Comments MCH (test code = MCH) 29.3 pg 27.0-31.0 N [facility] [place]anoEkyzncpCYPMPFOQTT3162-47-06 01:56:00 Test Item Value Reference Range Interpretation Comments Platelet (test code = Platelet) 175 133-450 N [facility] [place]anoNtlqcecTGSRPKLZXQ9074-18-39 01:56:00 Test Item Value Reference Range Interpretation Comments RDW (test code = RDW) 12.4 11.5-14.5 N [facility] [place]anoSrowabwMSMVUIMNFG9992-62-26 01:56:00 Test Item Value Reference Range Interpretation Comments Lymphocytes (test code = Lymphocytes) 14.0 20.0-40.0 L [facility] [place]anoYvjpivkJLGFOXQLQT1796-96-04 01:56:00 Test Item Value Reference Range Interpretation Comments RBC Morph (test code = Normal (12/28/2012 N RBC Morph) 20:56:00) [facility] [place]anoSclsmzjXRBUFWOHSC6684-98-01 01:56:00 Test Item Value Reference Range Interpretation Comments Bands (test code = 6.0 See_Comment N [Automat ed message] The Bands) system which ge nerated this result transmit abdelrahman reference range : <=11.0. The reference r annemarie was not used to interpr et this result as gurpreet l/abnormal. [facility] [place]anoFnumaewJPRZNNUFIT4463-39-19 01:56:00 Test Item Value Reference Range Interpretation Comments Segs (test code = Segs) 72.0 45.0-75.0 N [facility] [place]anoQrkhdpeGUFYNXOGLU8996-16-37 01:56:00 Test Item Value Reference Range Interpretation Comments Monocytes # (test code 0.9 See_Comment H [Aut omated message] The = Monocytes #) system which generated this result tra nsmitted reference range : <=0.8. The reference r annemarie was not used to int erpret this result as normal/abnormal . [facility] [place]anoWkqwpuzDKBBCUCVJT6102-92-44 01:56:00 Test Item Value Reference Range Interpretation Comments Lymphocytes # (test code = Lymphocytes 1.7 1.0-5.5 N #) [facility] [place]anoLsdhybyRPQLDQVGUL6957-52-54 01:56:00 Test Item Value Reference Range Interpretation Comments Segs-Bands # (test code = Segs-Bands #) 9.2 1.5-8.1 H [facility] [place]anoQhlaojpEPPKKXHNEX5070-49-98 01:56:00 Test Item Value Reference Range Interpretation Comments Monocytes (test code = Monocytes) 8.0 2.0-12.0 N [facility] [place]anoIcprsxbCCBMQEOVAA0732-92-06 01:56:00 Test Item Value Reference Range Interpretation Comments Atypical Lymphs (test code = Atypical 0.0 N Lymphs) [facility] [place]anoKxscfajQQMNHTVQQU7295-43-27 01:56:00 Test Item Value Reference Range Interpretation Comments Plt Morph (test code = Normal (12/28/2012 N Plt Morph) 20:56:00) [facility] HoustonCqqtqwkGJMBKDMMU0973-33-14 01:56:00 Test Item Value Reference Range Interpretation Comments O2 Sat Frankie (test code = O2 Sat Frankie) 84.6 40.0-70.0 H [facility] HoustonZwqusweZLYQIQNZN6751-81-44 01:56:00 Test Item Value Reference Range Interpretation Comments Temp Frankie (test code = Temp Frankie) 37.0 [facility] HoustonWacheehHDDCUZKYB5796-02-45 01:56:00 Test Item Value Reference Range Interpretation Comments BE Frankie (test code = -4 See_Comment L [Automa abdelrahman message] The BE Frankie) system which ge nerated this result transmit abdelrahman reference range : <=2. The reference range was not used to interpr et this result as gurpreet l/abnormal. [facility] HoustonJegzhqyBJZPQLGLU6718-55-76 01:56:00 Test Item Value Reference Range Interpretation Comments HCO3 Frankie (test code = HCO3 Frankie) 20 22-26 L [facility] HoustonOfpemczRZNNBSFYU4930-72-21 01:56:00 Test Item Value Reference Range Interpretation Comments pO2 Frankie (test code = pO2 Frankie) 49 20-49 N [facility] HoustonQecngnzWIIKZUXYX2921-69-95 01:56:00 Test Item Value Reference Range Interpretation Comments pH Frankie (test code = pH Frankie) 7.41 7.28-7.42 N [facility] HoustonGyqatbvOKCJWJDRB0653-46-60 01:56:00 Test Item Value Reference Range Interpretation Comments pCO2 Frankie (test code = pCO2 Frankie) 31 38-52 L [facility] HoustonFxibcaeDZKYYALGZ9309-56-44 01:56:00 Test Item Value Reference Range Interpretation Comments Lactic Acid Lvl (test code = Lactic 4.4 0.5-2.2 H Acid Lvl) [facility] HoustonVuseypeXIKSMHJGS4608-35-16 01:56:00 Test Item Value Reference Range Interpretation Comments Ethanol Lvl (test code = Ethanol Lvl) 79 [facility] HoustonZjdzspjOIFNDIBXV8190-43-13 01:56:00 Test Item Value Reference Range Interpretation Comments Etoh (%) (test code = Etoh (%)) 0.079 [facility] HoustonBuksohmNHFHDNQQY0928-47-75 01:56:00 Test Item Value Reference Range Interpretation Comments eGFR (test code = eGFR) 93 [facility] HoustonHpbokuyIZCOTNMLB7912-46-67 01:56:00 Test Item Value Reference Range Interpretation Comments BUN (test code = BUN) 6 7-22 L [facility] [id number] 01:56:00 Test Item Value Reference Range Interpretation Comments Creatinine Lvl (test code = Creatinine 1.1 0.5-1.4 N Lvl) [facility] HoustonCcounmgFBQEDPIGD6725-71-15 01:56:00 Test Item Value Reference Range Interpretation Comments Glucose Lvl (test code = Glucose Lvl) 124 70-99 H [facility] Hous[id number] 01:56:00 Test Item Value Reference Range Interpretation Comments Sodium Lvl (test code = Sodium Lvl) 140 135-145 N [facility] HoustonFkhnegvSPZJBAZJN4593-61-36 01:56:00 Test Item Value Reference Range Interpretation Comments Chloride Lvl (test code = Chloride Lvl) 103 95-109 N [facility] HoustonCaaguwmGJDYWLDVL5042-68-97 01:56:00 Test Item Value Reference Range Interpretation Comments CO2 (test code = CO2) 21 24-32 L [facility] HoustonIthrendFBOPFPJOY4657-71-77 01:56:00 Test Item Value Reference Range Interpretation Comments Potassium Lvl (test code = Potassium 3.1 3.5-5.1 L Lvl) [facility] HoustonCaypmosTYZAMTWUH4050-58-10 01:56:00 Test Item Value Reference Range Interpretation Comments Calcium Lvl (test code = Calcium Lvl) 8.6 8.5-10.5 N [facility] HoustonBmhruylLOZYFNJFP9904-46-60 01:56:00 Test Item Value Reference Range Interpretation Comments AGAP (test code = AGAP) 19.1 10.0-20.0 N [facility]RqjfrioYYZGIBZHRB6418-33-25 01:56:00 Test Item Value Reference Range Interpretation Comments Estimated % Lysis (test 1.3 See_Comment N [Au tomated message] The code = Estimated % system wh ich generated Lysis) this result tra nsmitted reference range : <=7.5. The reference r annemarie was not used to int erpret this result as normal/abnormal . [facility]anoAvajvihCXVAPLGNGK4134-11-56 01:56:00 Test Item Value Reference Range Interpretation Comments K-time (test code = K-time) 2.2 min 0.6-2.3 N [facility]anoOuulgowHMSSPHNCJJ0893-57-98 01:56:00 Test Item Value Reference Range Interpretation Comments Angle (test code = Angle) 64 degrees 64-80 N [facility]anoItmoojwFMIOINSRIV2440-71-06 01:56:00 Test Item Value Reference Range Interpretation Comments Max Amp (test code = Max Amp) 58 mm 52-71 N [facility]anoOoiafsgKIXQKKTTZX2171-35-21 01:56:00 Test Item Value Reference Range Interpretation Comments R-time (test code = R-time) 0.8 min 0.4-0.7 H [place] [address]-08-31 01:56:00 Test Item Value Reference Range Interpretation Comments Split Point (test code = Split Point) 0.6 min [place] [address]-08-31 01:56:00 Test Item Value Reference Range Interpretation Comments Rapid TEG Sample Type Citrated Whole Blood (test code = Rapid TEG Sample Type) [facility]anoLjdgyvsZPBZAFOGZT9436-08-16 01:56:00 Test Item Value Reference Range Interpretation Comments ACT (TEG) (test code = ACT (TEG)) 121 s 86-118 H [facility]anoPkrpjclAZMXWUQPDF1415-12-98 01:56:00 Test Item Value Reference Range Interpretation Comments G-value (test code = G-value) 6.9 5.0-11.6 N [place] [address]-08-31 01:56:00 Test Item Value Reference Range Interpretation Comments Hgb (test code = Hgb) 14.8 14.0-18.0 N [facility] [id number] 01:56:00 Test Item Value Reference Range Interpretation Comments RBC (test code = RBC) 5.05 4.70-6.10 N [facility] PlanoNoaskjnWGTEUSVVJZ0302-25-50 01:56:00 Test Item Value Reference Range Interpretation Comments Hct (test code = Hct) 44.5 42.0-54.0 N [facility] PlanoXrojsomGFTDKEROPR4424-69-03 01:56:00 Test Item Value Reference Range Interpretation Comments WBC (test code = WBC) 11.8 3.7-10.4 H [place] [address]-08-31 01:56:00 Test Item Value Reference Range Interpretation Comments MPV (test code = MPV) 9.2 7.4-10.4 N [place] [address]-08-31 01:56:00 Test Item Value Reference Range Interpretation Comments MCHC (test code = MCHC) 33.2 32.0-36.0 N [facility] PlanoBgseacyIERDWZHOIU9594-98-15 01:56:00 Test Item Value Reference Range Interpretation Comments MCV (test code = MCV) 88.1 80.0-94.0 N [facility]anoPpcizmwIOMNGFRNKD1743-84-29 01:56:00 Test Item Value Reference Range Interpretation Comments MCH (test code = MCH) 29.3 pg 27.0-31.0 N [facility] Plano[id number] 01:56:00 Test Item Value Reference Range Interpretation Comments Platelet (test code = Platelet) 175 133-450 N [facility] PlanoU[id number] 01:56:00 Test Item Value Reference Range Interpretation Comments RDW (test code = RDW) 12.4 11.5-14.5 N [facility] PlanoH[id number] 01:56:00 Test Item Value Reference Range Interpretation Comments Lymphocytes (test code = Lymphocytes) 14.0 20.0-40.0 L [facility] PlanoTaqqpvjUUPHRMOALC8200-18-08 01:56:00 Test Item Value Reference Range Interpretation Comments RBC Morph (test code = Normal (12/28/2012 N RBC Morph) 20:56:00) [facility] PlanoQuotcarOWWNXIGJVR6436-11-74 01:56:00 Test Item Value Reference Range Interpretation Comments Bands (test code = 6.0 See_Comment N [Automat ed message] The Bands) system which ge nerated this result transmit abdelrahman reference range : <=11.0. The reference r annemarie was not used to interpr et this result as gurpreet l/abnormal. [facility] [id number] 01:56:00 Test Item Value Reference Range Interpretation Comments Segs (test code = Segs) 72.0 45.0-75.0 N [facility] PlanoMdkaetcPHIBSOYGIB6074-74-48 01:56:00 Test Item Value Reference Range Interpretation Comments Monocytes # (test code 0.9 See_Comment H [Aut omated message] The = Monocytes #) system which generated this result tra nsmitted reference range : <=0.8. The reference r annemarie was not used to int erpret this result as normal/abnormal . [facility] Plano[id number] 01:56:00 Test Item Value Reference Range Interpretation Comments Lymphocytes # (test code = Lymphocytes 1.7 1.0-5.5 N #) [facility] [id number] 01:56:00 Test Item Value Reference Range Interpretation Comments Segs-Bands # (test code = Segs-Bands #) 9.2 1.5-8.1 H [facility] [id number] 01:56:00 Test Item Value Reference Range Interpretation Comments Monocytes (test code = Monocytes) 8.0 2.0-12.0 N [facility] [id number] 01:56:00 Test Item Value Reference Range Interpretation Comments Atypical Lymphs (test code = Atypical 0.0 N Lymphs) [facility] Pla[id number] 01:56:00 Test Item Value Reference Range Interpretation Comments Plt Morph (test code = Normal (12/28/2012 N Plt Morph) 20:56:00) [facility]
[2022-05-31 19:50] LABS: Absolute Lymphocytes (CBC) 1.2 K/uL (0.7-4.9); Hematocrit 41.9 % (39.6-49.0); Lymphocytes % 19.6 % (15.3-44.8); MCV 86.5 fL (80-100); MPV 8.6 fL (7.6-11.3); RBC Red Blood Cell Count 4.85 M/uL (4.33-5.43)
[2022-05-31 19:58] LABS: Protime INR 0.96
[2022-05-31 20:08] LABS: ALT/SGPT 27 U/L (16-61); AST/SGOT 37 U/L (15-37); Albumin 4.2 g/dL (3.4-5.0); Alkaline Phosphatase 35 U/L (45-117); BUN Blood Urea Nitrogen 7 mg/dL (7-18); Bicarbonate 29 mmol/L (21-32); Bilirubin Direct 0.3 mg/dL (0-0.2); Glomerular Filtration Rate 96 ml/min (=/>90); Glucose Level 98 mg/dL (74-106); Potassium 3.4 mmol/L (3.5-5.1); Protein, Total 7.3 g/dL (6.4-8.2); Sodium Level 133 mmol/L (136-145)
--- NOTE | 2022-05-31 20:40 | ER ---
Nurse's Notes [facility] Name: Alex Abbott Age: 32 yrs Sex: Male : 1990 Arrival Date: 05/31/2022 Time: 19:06 Bed 4 Private MD: Diagnosis: Adverse effect of other drugs, medicaments and biological substances;Other psychoactive substance abuse;Hypokalemia Presentation: 05/31 19:24 Chief complaint: Patient states: I have been taking medications for a few days to get kd3 high. I have been taking triple C for the past 3 days. I took 60 pills today. Parent and/or Guardian states: I found him laying outside in my front yard. I moved his foot and he got startled awake and asked why it was so cold. He needs to go to a rehab. Coronavirus screen: Vaccine status:. Ebola Screen: No symptoms or risks identified at this time. Ebola Screen: No symptoms or risks identified at this time. Initial Sepsis Screen: Does the patient meet any 2 criteria? No. Patient's initial sepsis screen is negative. Does the patient have a suspected source of infection? No. Patient's initial sepsis screen is negative. Risk Assessment: Do you want to hurt yourself or someone else? Patient reports no desire to harm self or others. Onset of symptoms was May 31, 2022. 19:24 Method Of Arrival: Ambulatory kd3 19:24 Acuity: ROCIO 3 kd3 Triage Assessment: 19:26 General: Appears uncomfortable, unkempt, Behavior is cooperative. Pain: Denies pain. kd3 Neuro:. Historical: - Allergies: 19:26 lithium; kd3 19:26 RISPERIDONE; kd3 19:26 quetiapine fumarate; kd3 19:26 ziprasidone HCl; kd3 - PMHx: 19:26 Anxiety; Depression; Pneumonia; Schizophrenia; drug overdose; Bipolar disorder; kd3 ADD/ADHD; - Immunization history:: Adult Immunizations unknown. - Social history:: Smoking status: Patient reports the use of cigarette tobacco products. - Family history:: not pertinent. Screenin:50 [facility] ED Fall Risk Assessment (Adult) Score/Fall Risk Level 0 - 2 = Low Risk. Abuse as6 screen: Denies threats or abuse. Denies injuries from another. Nutritional screening: No deficits noted. Tuberculosis screening: No symptoms or risk factors identified. Assessment: 19:35 General: Appears unkempt, Behavior is cooperative, agitated, restless. Pain: Denies as6 pain. Neuro: Level of Consciousness is awake, alert, obeys commands, Oriented to person, place, time, situation. Cardiovascular: Capillary refill < 3 seconds Patient's skin is warm and dry. Respiratory: Respiratory effort is even, unlabored, Respiratory pattern is regular, symmetrical. 20:11 General: poison control . recommendation to draw lab work, EKG. no as6 recommendation for monitoring time . 20:33 Reassessment: Patient appears in no apparent distress at this time. Patient and/or as6 family updated on plan of care and expected duration. Pain level reassessed. Patient is alert, oriented x 3, equal unlabored respirations, skin warm/dry/pink. Overdose: 20:52 [place] Suicide Severity Screening: "In the past month, have you wished you were as6 or wished you could go to sleep and not wake up?" Patient responds "no." "In the past month, have you actually had any thoughts of killing yourself?" Patient responds "no." "In your lifetime, have you ever done anything, started to do anything, or prepared to do anything to end your life?" Patient responds "yes." Patient reports suicidal intent occurred greater than 3 months prior. 20:53 [place] Suicide Severity Screening: "In the past month, have you actually had any as6 thoughts of killing yourself?" Patient responds "yes." Based off client's responses, additional C-SSRS screening questions required. Vital Signs: 19:24 BP 130 / 99; Pulse 108; Resp 19; Temp 98.3(O); Pulse Ox 99% on R/A; Weight 58.97 kg; kd3 19:50 BP 138 / 96; Pulse 90; Resp 17 S; Pulse Ox 100% on R/A; as6 20:33 BP 135 / 95; Pulse 81; Resp 16 S; Pulse Ox 100% on R/A; as6 ED Course: 19:06 Patient arrived in ED. am2 19:21 Roshan Gomez MD is Attending Physician. sherif 19:22 Manjit Stark RN is Primary Nurse. as6 19:26 Triage completed. kd3 19:26 Arm band placed on right wrist. kd3 19:40 Inserted saline lock: 20 gauge in right forearm, using aseptic technique. Blood as6 collected. 19:50 Placed in gown. Bed in low position. Call light in reach. Side rails up X 1. Adult w/ as6 patient. Client placed on continuous cardiac and pulse oximetry monitoring. NIBP monitoring applied. Warm blanket given. 20:39 Lio Lora MD is Referral Physician. [facility] 20:52 No provider procedures requiring assistance completed. IV discontinued, intact, as6 bleeding controlled, No redness/swelling at site. Pressure dressing applied. Administered Medications: 19:40 Drug: NS 0.9% 1000 ml Route: IV; Rate: 1 bolus; Site: right forearm; as6 20:53 Follow up: Response: No adverse reaction; IV Status: Completed infusion; IV Intake: as6 1000ml Medication: 19:51 VIS not applicable for this client. as6 Intake: 20:53 IV: 1000ml; Total: 1000ml. as6 Outcome: 20:40 Discharge ordered by . [facility] 20:52 Discharged to home ambulatory, with family. as6 20:52 Condition: stable 20:52 Discharge instructions given to patient, family, Instructed on discharge instructions, follow up and referral plans. Demonstrated understanding of instructions, follow-up care. 20:53 Patient left the ED. as6 Signatures: Roshan Gomez MD MD cha Moreno, Amanda am2 Manjit Stark, RN RN as6 Pamela Castro RN RN kd3
--- NOTE | 2022-05-31 20:40 | EDPHYS ---
Physician Documentation [facility] Name: Alex Abbott Age: 32 yrs Sex: Male : 1990 Arrival Date: 05/31/2022 Time: 19:06 Bed 4 Private MD: ED Physician Roshan Gomez HPI: 05/31 19:58 This 32 yrs old Male presents to ER via Ambulatory with complaints of sherif Overdose. 19:58 The patient presents to the emergency department after a known overdose, that was sherif intentional. Context: Time: today, yesterday, Extent: 40 cough and cough. Associated signs and symptoms: The patient has no apparent associated signs or symptoms. Severity of symptoms: At their worst the symptoms were mild in the emergency department the symptoms are unchanged. The patient has experienced similar episodes in the past, multiple times. Historical: - Allergies: 19:26 lithium; kd3 19:26 RISPERIDONE; kd3 19:26 quetiapine fumarate; kd3 19:26 ziprasidone HCl; kd3 - PMHx: 19:26 Anxiety; Depression; Pneumonia; Schizophrenia; drug overdose; Bipolar disorder; kd3 ADD/ADHD; - Immunization history:: Adult Immunizations unknown. - Social history:: Smoking status: Patient reports the use of cigarette tobacco products. - Family history:: not pertinent. ROS: 19:58 Constitutional: Negative for fever, chills, and weight loss, Eyes: Negative for injury, sherif pain, redness, and discharge, ENT: Negative for injury, pain, and discharge, Neck: Negative for injury, pain, and swelling, Cardiovascular: Negative for chest pain, palpitations, and edema, Respiratory: Negative for shortness of breath, cough, wheezing, and pleuritic chest pain, Abdomen/GI: Negative for abdominal pain, nausea, vomiting, diarrhea, and constipation, Back: Negative for injury and pain, : Negative for injury, bleeding, discharge, and swelling, MS/Extremity: Negative for injury and deformity, Skin: Negative for injury, rash, and discoloration, Neuro: Negative for headache, weakness, numbness, tingling, and seizure, Psych: Negative for depression, anxiety, suicide ideation, homicidal ideation, and hallucinations, Allergy/Immunology: Negative for hives, rash, and allergies, Endocrine: Negative for neck swelling, polydipsia, polyuria, polyphagia, and marked weight changes, Hematologic/Lymphatic: Negative for swollen nodes, abnormal bleeding, and unusual bruising. Exam: 19:58 Constitutional: This is a well developed, well nourished patient who is awake, alert, sherif and in no acute distress. Head/Face: Normocephalic, atraumatic. Eyes: Pupils equal round and reactive to light, extra-ocular motions intact. Lids and lashes normal. Conjunctiva and sclera are non-icteric and not injected. Cornea within normal limits. Periorbital areas with no swelling, redness, or edema. ENT: Nares patent. No nasal discharge, no septal abnormalities noted. Tympanic membranes are normal and external auditory canals are clear. Oropharynx with no redness, swelling, or masses, exudates, or evidence of obstruction, uvula midline. Mucous membranes moist. Neck: Trachea midline, no thyromegaly or masses palpated, and no cervical lymphadenopathy. Supple, full range of motion without nuchal rigidity, or vertebral point tenderness. No Meningismus. Chest/axilla: Normal chest wall appearance and motion. Nontender with no deformity. No lesions are appreciated. Cardiovascular: Regular rate and rhythm with a normal S1 and S2. No gallops, murmurs, or rubs. Normal PMI, no JVD. No pulse deficits. Respiratory: Lungs have equal breath sounds bilaterally, clear to auscultation and percussion. No rales, rhonchi or wheezes noted. No increased work of breathing, no retractions or nasal flaring. Abdomen/GI: Soft, non-tender, with normal bowel sounds. No distension or tympany. No guarding or rebound. No evidence of tenderness throughout. Back: No spinal tenderness. No costovertebral tenderness. Full range of motion. Male : Normal genitalia with no discharge or lesions. Skin: Warm, dry with normal turgor. Normal color with no rashes, no lesions, and no evidence of cellulitis. MS/ Extremity: Pulses equal, no cyanosis. Neurovascular intact. Full, normal range of motion. Neuro: Awake and alert, GCS 15, oriented to person, place, time, and situation. Cranial nerves II-XII grossly intact. Motor strength 5/5 in all extremities. Sensory grossly intact. Cerebellar exam normal. Normal gait. Psych: Awake, alert, with orientation to person, place and time. Behavior, mood, and affect are within normal limits. 19:58 ECG was reviewed by the Attending Physician. Vital Signs: 19:24 BP 130 / 99; Pulse 108; Resp 19; Temp 98.3(O); Pulse Ox 99% on R/A; Weight 58.97 kg; kd3 19:50 BP 138 / 96; Pulse 90; Resp 17 S; Pulse Ox 100% on R/A; as6 20:33 BP 135 / 95; Pulse 81; Resp 16 S; Pulse Ox 100% on R/A; as6 MDM: 19:21 Patient medically screened. [facility] 20:04 Differential diagnosis: polypharmacy, over medication, hypoglycemia. Data reviewed: [facility] vital signs, nurses notes, lab test result(s), EKG. Consideration of Admission/Observation Patient was admitted/placed on observation. Escalation of care including admission/observation considered. Management of patient was discussed with the following: Roof Bolter: poison control. I considered the following discharge prescriptions or medication management in the emergency department Medications were administered in the Emergency Department. See MAR. Test considered but Not performed: CT: ct brain. 20:37 Historians other than the Patient: Parent: father. Care significantly affected by the [facility] following chronic conditions: psych, depression. 05/31 19:22 Order name: Acetaminophen; Complete Time: 20:32 [facility] 05/31 19:22 Order name: Basic Metabolic Panel; Complete Time: 20:32 [facility] 05/31 19:22 Order name: CBC with Diff; Complete Time: 20:13 [facility] 05/31 19:22 Order name: ETOH Level; Complete Time: 20:32 [facility] 05/31 19:22 Order name: Hepatic Function; Complete Time: 20:32 [facility] 05/31 19:22 Order name: PT-INR; Complete Time: 20:13 [facility] 05/31 19:22 Order name: Ptt, Activated; Complete Time: 20:13 [facility] 05/31 19:22 Order name: Salicylate; Complete Time: 20:13 [facility] 05/31 19:22 Order name: EKG; Complete Time: 19:23 [facility] 05/31 19:22 Order name: EKG - Nurse/Tech; Complete Time: 19:50 [facility] 05/31 19:22 Order name: IV Saline Lock; Complete Time: 19:50 [facility] 05/31 19:22 Order name: Labs collected and sent; Complete Time: 19:50 [facility] 05/31 19:22 Order name: Suicide Screening (Balsam); Complete Time: 19:50 [facility] 05/31 19:22 Order name: Urine Dipstick-Ancillary (obtain specimen) [facility] 05/31 20:32 Order name: PO challenge: juice; Complete Time: 20:53 [facility] EC:58 Rate is 73 beats/min. Rhythm is regular. QRS [place] is Normal. IA interval is normal. QRS sherif interval is normal. QT interval is normal. No Q waves. T waves are Normal. No ST changes noted. Clinical impression: NSR w/ Non-specific ST/T Changes and No evidence of ischemia. Interpreted by me. Reviewed by me. Administered Medications: 19:40 Drug: NS 0.9% 1000 ml Route: IV; Rate: 1 bolus; Site: right forearm; as6 20:53 Follow up: Response: No adverse reaction; IV Status: Completed infusion; IV Intake: as6 1000ml Disposition Summary: 05/31/22 20:40 Discharge Ordered Location: Home sherif Problem: new sherif Symptoms: have improved sherif Condition: Fair sherif Diagnosis - Adverse effect of other drugs, medicaments and biological substances sherif - Other psychoactive substance abuse sherif - Hypokalemia sherif Followup: sherif - With: Private Physician - When: 2 - 3 days - Reason: Recheck today's complaints, Continuance of care, Re-evaluation by your physician Followup: sherif - With: - When: 2 - 3 days - Reason: Recheck today's complaints, Re-evaluation by your physician Discharge Instructions: - Discharge Summary Sheet sherif - Potassium Content of Foods sherif - Substance Use Disorder sherif - Substance Use Disorder and Mental Illness sherif - Supporting Someone With Substance Use Disorder sherif - Hypokalemia sherif Forms: - Medication Reconciliation Form sherif - Thank You Letter sherif - Antibiotic Education sherif - Prescription Opioid Use sherif Signatures: Dispatcher [employer] Roshan Ramirez MD MD cha Slawson, Ashby, RN RN as6 Paemla Castro RN RN kd3
[2022-05-31 21:07] VITALS: TEMP 98.3
[2022-05-31 21:11] VITALS: O2SAT 100
[2022-05-31 21:16] VITALS: BP 135/95
== END 2022-05-31 20:53 | disposition home or self-care (01) ==
LOC: ER 19:04
DX: F19.10 Other psychoactive substance abuse, uncomplicated (principal); E87.6 Hypokalemia; T50.995A Adverse effect of other drugs, medicaments and biological substances, initial encounter; F20.9 Schizophrenia, unspecified; Z72.0 Tobacco use
CPT/HCPCS: 85025; 80048; 36415; 85610; 80076; 85730; J7030; G0480 ×3; 93005

== ENCOUNTER 2022-06-07 13:11 | Emergency (ER) | payer OTHER ==
--- OUTSIDE RECORDS SUMMARY | 2022-06-07 13:41 | XMS REPORT | Continuity of Care Document ---
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 Phos-NaK) phosphate 00 Each 1.5 250 mg-280 gm pkt has mg-160 mg 250mg oral powder phosphorou for s. Mix reconstitut w/2.5oz ion water and stir. Calcium 2017-05 No Notes: [facility] Gluconate 2-14 WASTE: F/P l 04:02: - Sink; E - [employer] Trash Bin Magnesium 2017-05 No Notes: [facility] a Oxide 2-14 (Same as: l 04:02: Mag-Ox [place] 00 400) Magnesium oxide [id number] g elemental magnesium Dose=____m g magnesium oxide (___mg elemental magnesium) Calcium 2017-05 No Notes: [facility] Carbonate 2-14 (Same As: l 500 MG 04:02: Tums) [place] Chewable 00 Calcium Tablet Carbonate 500 mg = 200 mg elemental calcium Dose = mg calcium carbonate ( mg elemental calcium) Saline 2017-05 No Notes: [facility] Flush 0.9% 2-14 Same as: l 04:02: BD [place] 00 Posiflush Sterile Acetaminoph 2017-05 No Notes: Do M emoria en 2-14 not exceed l 04:02: 4 gm/day. [place] 00 (Same as: Tylenol) Nystatin 2017-05 No Notes: [facility] 100 UNT/MG 2-14 (Same l Topical 04:02: as:Mycosta Herm boaz Powder 00 tin, Nilstat) For external use only. Potassium 2017-05 No Notes: [facility] a Chloride 2-14 (Same as: l 04:02: KCL) [place] Infuse no faster than 10 mEq/hr if [...] phosphate 2-14 (Same as: l 04:02: K [place] 00 Phosphate. ) Do not infuse phosphorou [...] Oxide 2-14 (Same as: l 04:02: Mag-Ox [place] 00 400) Magnesium oxide [id number] g elemental magnesium Dose=____m g magnesium oxide (___mg elemental magnesium) Calcium 2017-05 No Notes: [facility] Carbonate 2-14 (Same As: l 500 MG 04:02: Tums) [place] Chewable 00 Calcium Tablet Carbonate 500 mg = 200 mg elemental calcium Dose = mg calcium carbonate ( mg elemental calcium) Saline 2017-05 No Notes: [facility] Flush 0.9% 2-14 Same as: l 04:02: BD [place] 00 Posiflush Sterile Acetaminoph 2017-05 No Notes: Do M emoria en 2-14 not exceed l 04:02: 4 gm/day. [place] 00 (Same as: Tylenol) Nystatin 2017-05 No [...] 2-14 (Same as: l odium 04:02: Phos-NaK) [place] phosphate 00 Each 1.5 250 mg-280 gm pkt has mg-160 mg 250mg oral powder phosphorou for s. Mix reconstitut w/2.5oz ion water and stir. Calcium 2017-05 No Notes: [facility] Gluconate 2-14 WASTE: F/P l 04:02: - Sink; E [place] 00 - [employer] Trash Bin Magnesium 2017-05 No Notes: [facility] a Oxide 2-14 (Same as: l 04:02: Mag-Ox [place] 00 400) Magnesium oxide [id number] g elemental magnesium Dose=____m g magnesium oxide (___mg elemental magnesium) Calcium 2017-05 No Notes: [facility] Carbonate 2-14 (Same As: l 500 MG 04:02: Tums) [place] Chewable 00 Calcium Tablet Carbonate 500 mg [...] Weight 54.091, kg, Start date: 04/12/18 21:26:00 MILL MANAGER, Stop date: 04/12/18 21:26:00 MILL MANAGER Keppra 2017-05 No 1,000 mg, [facility] a 2-14 Route: l 03:26: IVPB, [place] 00 ONCE, Dosing Weight 54.091, kg, Start date: 04/12/18 21:26:00 MILL MANAGER, Stop date: 04/12/18 21:26:00 MILL MANAGER Keppra 2017-05 No 1,000 mg, [facility] a 2-14 Route: l 03:26: IVPB, [place] 00 ONCE, Dosing Weight 54.091, kg, Start date: 04/12/18 21:26:00 MILL MANAGER, Stop date: 04/12/18 21:26:00 MILL MANAGER Keppra 2017-05 No 1,000 mg, [facility] a 2-14 Route: l 03:26: IVPB, [place] 00 ONCE, Dosing Weight 54.091, kg, Start date: 04/12/18 21:26:00 MILL MANAGER, Stop date: 04/12/18 21:26:00 MILL MANAGER Keppra 2018- No 1,000 mg, [facility] a 2-14 Route: l 03:26: IVPB, [place] 00 ONCE, Dosing Weight 54.091, kg, Start date: 04/12/18 21:26:00 MILL MANAGER, Stop date: 04/12/18 21:26:00 MILL MANAGER Keppra 2018- No 1,000 mg, [facility] a 2-14 Route: l 03:26: IVPB, [place] 00 ONCE, Dosing Weight 54.091, kg, Start date: 04/12/18 21:26:00 MILL MANAGER, Stop date: 04/12/18 21:26:00 MILL MANAGER acetaminoph 2017-05 No Notes: Do M em[facility] en-codeine 2-14 not exceed l #3 02:03: 4gm/day of [place] acetaminop hen. (Same as: Tylenol with Codeine # 3) acetaminoph 2017-05 No Notes: Do M [facility] en-codeine 2-14 not exceed l #3 02:03: 4gm/day of [place] 00 acetaminop hen. (Same as: Tylenol with Codeine # 3) acetaminoph 2017-05 No Notes: Do M em[facility] en-codeine 2-14 not exceed l #3 02:03: 4gm/day of [place] acetaminop hen. (Same as: Tylenol with Codeine # 3) acetaminoph 2017-05 No Notes: Do M em[facility] en-codeine 2-14 not exceed l #3 02:03: 4gm/day of [place] 00 acetaminop hen. (Same as: Tylenol with [...] 2-14 Infuse l 0.9% 00:47: Over: 1 [place] (Bolus) IV 00 hr, Route: IV, ONCE, Priority: STAT, Dosing Weight 54.091 kg, Start date: 04/12/18 18:47:00 MILL MANAGER, Stop date: 04/12/18 18:47:00 MILL MANAGER Sodium 2018-1 No 1,000 mL, [facility] Chloride 2-14 Infuse l 0.9% 00:47: Over: 1 [place] (Bolus) IV 00 hr, Route: IV, ONCE, Priority: STAT, Dosing Weight 54.091 kg, Start date: 04/12/18 18:47:00 MILL MANAGER, Stop date: 04/12/18 18:47:00 MILL MANAGER Sodium 2018-1 No 1,000 mL, [facility] Chloride 2-14 Infuse l 0.9% 00:47: Over: 1 [place] (Bolus) IV 00 hr, Route: IV, ONCE, Priority: STAT, Dosing Weight 54.091 kg, Start date: 04/12/18 18:47:00 MILL MANAGER, Stop date: 04/12/18 18:47:00 MILL MANAGER Sodium 2018-1 No 1,000 mL, [facility] Chloride 2-14 Infuse l 0.9% 00:47: Over: 1 [place] (Bolus) IV 00 hr, Route: IV, ONCE, Priority: STAT, Dosing Weight 54.091 kg, Start date: 04/12/18 18:47:00 MILL MANAGER, Stop date: 04/12/18 18:47:00 MILL MANAGER Sodium 2018-1 No 1,000 mL, [facility] Chloride 2-14 Infuse l 0.9% 00:47: Over: 1 [place] (Bolus) IV 00 hr, Route: IV, ONCE, Priority: STAT, Dosing Weight 54.091 kg, Start date: 04/12/18 18:47:00 MILL MANAGER, Stop date: 04/12/18 18:47:00 MILL MANAGER Sodium 2018-1 No 1,000 mL, [facility] Chloride 2-14 Infuse l 0.9% 00:47: Over: 1 [place] (Bolus) IV 00 hr, Route: IV, ONCE, Priority: STAT, Dosing Weight 54.091 kg, Start date: 04/12/18 18:47:00 MILL MANAGER, Stop date: 04/12/18 18:47:00 MILL MANAGER Ibuprofen 2017-0 No 600 mg, [facility] 1- Route: PO, l 05:32: Drug form: [place] 00 TAB, ONCE, Dosing Weight 54.545, kg, Priority: STAT, Start date: 04/30/16 23:32:00 MILL MANAGER, Stop date: 04/30/16 23:32:00 MILL MANAGER Ibuprofen 2017-0 No 600 mg, [facility] 1- Route: PO, l 05:32: Drug form: [place] 00 TAB, ONCE, Dosing Weight 54.545, kg, Priority: STAT, Start date: 04/30/16 23:32:00 MILL MANAGER, Stop date: 04/30/16 23:32:00 MILL MANAGER Ibuprofen 2017-0 No 600 mg, [facility] 1- Route: PO, l 05:32: Drug form: [place] 00 TAB, ONCE, Dosing Weight 54.545, kg, Priority: STAT, Start date: 04/30/16 23:32:00 MILL MANAGER, Stop date: 04/30/16 23:32:00 MILL MANAGER Ibuprofen 2017-0 No 600 mg, [facility] 1- Route: PO, l 05:32: Drug form: [place] 00 TAB, ONCE, Dosing Weight 54.545, kg, Priority: STAT, Start date: 04/30/16 23:32:00 MILL MANAGER, Stop date: 04/30/16 23:32:00 MILL MANAGER Ibuprofen 2017-0 No 600 mg, [facility] 1- Route: PO, l 05:32: Drug form: [place] 00 TAB, ONCE, Dosing Weight 54.545, kg, Priority: STAT, Start date: 04/30/16 23:32:00 MILL MANAGER, Stop date: 04/30/16 23:32:00 MILL MANAGER Ibuprofen 2017-0 No 600 mg, [facility] 1- Route: PO, l 05:32: Drug form: [place] 00 TAB, ONCE, Dosing Weight 54.545, kg, Priority: STAT, Start date: 04/30/16 23:32:00 MILL MANAGER, Stop date: 04/30/16 23:32:00 MILL MANAGER Sodium 2017-0 No 1,000 mL, [facility] Chloride 1-01 1,000 l 0.154 04:38: ml/hr, [place] MEQ/ML 00 Infuse Injectable Over: 1 Solution hr, Route: IV, 1,000, Drug form: INJ, ONCE, Priority: STAT, Dosing Weight 54.545 kg, Start date: 04/30/16 22:38:00 MILL MANAGER, Duration: 1 doses or times, Stop date: 04/30/16 22:38:00 MILL MANAGER Sodium 2017-0 No 1,000 mL, [facility] Chloride 1-01 1,000 l 0.154 04:38: ml/hr, [place] MEQ/ML 00 Infuse Injectable Over: 1 Solution hr, Route: IV, 1,000, Drug form: INJ, ONCE, Priority: STAT, Dosing Weight 54.545 kg, Start date: 04/30/16 22:38:00 MILL MANAGER, Duration: 1 doses or times, Stop date: 04/30/16 22:38:00 MILL MANAGER Sodium 2017-0 No 1,000 mL, [facility] Chloride 1-01 1,000 l 0.154 04:38: ml/hr, [place] MEQ/ML 00 Infuse Injectable Over: 1 Solution hr, Route: IV, 1,000, Drug form: INJ, ONCE, Priority: STAT, Dosing Weight 54.545 kg, Start date: 04/30/16 22:38:00 MILL MANAGER, Duration: 1 doses or times, Stop date: 04/30/16 22:38:00 MILL MANAGER Sodium 2017-0 No 1,000 mL, [facility] Chloride 1-01 1,000 l 0.154 04:38: ml/hr, [place] MEQ/ML 00 Infuse Injectable Over: 1 Solution hr, Route: IV, 1,000, Drug form: INJ, ONCE, Priority: STAT, Dosing Weight 54.545 kg, Start date: 04/30/16 22:38:00 MILL MANAGER, Duration: 1 doses or times, Stop date: 04/30/16 22:38:00 MILL MANAGER Sodium 2017-0 No 1,000 mL, [facility] Chloride 1-01 1,000 l 0.154 04:38: ml/hr, [place] MEQ/ML 00 Infuse Injectable Over: 1 Solution hr, Route: IV, 1,000, Drug form: INJ, ONCE, Priority: STAT, Dosing Weight 54.545 kg, Start date: 04/30/16 22:38:00 MILL MANAGER, Duration: 1 doses or times, Stop date: 04/30/16 22:38:00 MILL MANAGER Sodium 2017-0 No 1,000 mL, [facility] Chloride 05-01 1,000 l 0.154 04:38: ml/hr, [place] MEQ/ML 00 Infuse Injectable Over: 1 Solution hr, Route: IV, 1,000, Drug form: INJ, ONCE, Priority: STAT, Dosing Weight 54.545 kg, Start date: 04/30/16 22:38:00 MILL MANAGER, Duration: 1 doses or times, Stop date: 04/30/16 22:38:00 MILL MANAGER Sodium 2017-0 No 25 mL, [facility] Chloride 05-01 Route: IV, l 0.9% IV 02:29: Start date: 04/30/16 20:29:00 MILL MANAGER, Duration: 30 day, Stop date: 05/30/16 20:28:00 MILL MANAGER, PRN Line Flush BD Normal 2016-0 No Notes: [facility] Saline 05-01 (Same as: l Flush 02:29: BD [place] Posiflush) Sodium 2016-0 No 25 mL, [facility] Chloride 05-01 Route: IV, l 0.9% IV 02:29: Start [place] 00 date: 04/30/16 20:29:00 MILL MANAGER, Duration: 30 day, Stop date: 05/30/16 20:28:00 MILL MANAGER, PRN Line Flush BD Normal 2016-0 No Notes: [facility] Saline 05-01 (Same as: l Flush 02:29: BD [place] Posiflush) Sodium 2016-0 No 25 mL, [facility] Chloride 05-01 Route: IV, l 0.9% IV 02:29: Start [place] 00 date: 04/30/16 20:29:00 MILL MANAGER, Duration: 30 day, Stop date: 05/30/16 20:28:00 MILL MANAGER, PRN Line Flush BD Normal 2016-0 No Notes: [facility] Saline - (Same as: l Flush 02:29: BD [place] 00 Posiflush) Sodium 2016-0 No 25 mL, [facility] Chloride 05-01 Route: IV, l 0.9% IV 02:29: Start [place] 00 date: 04/30/16 20:29:00 MILL MANAGER, Duration: 30 day, Stop date: 05/30/16 20:28:00 MILL MANAGER, PRN Line Flush BD Normal 2017-0 No Notes: [facility] Saline 1-01 (Same as: l Flush 02:29: BD [place] Posiflush) Sodium 2017-0 No 25 mL, [facility] Chloride 1- Route: IV, l 0.9% IV 02:29: Start date: 04/30/16 20:29:00 MILL MANAGER, Duration: 30 day, Stop date: 05/30/16 20:28:00 MILL MANAGER, PRN Line Flush BD Normal 2017-0 No Notes: [facility] Saline 1- (Same as: l Flush 02:29: BD [place] Posiflush) Sodium 2017-0 No 25 mL, [facility] Chloride 05-01 Route: IV, l 0.9% IV 02:29: Start date: 04/30/16 20:29:00 MILL MANAGER, Duration: 30 day, Stop date: 05/30/16 20:28:00 MILL MANAGER, PRN Line Flush BD Normal 2017-0 No Notes: [facility] Saline 1- (Same as: l Flush 02:29: BD [place] Posiflush) Sodium 2017-0 No 1,000 mL, [facility] Chloride 1-01 1,000 l 0.154 02:19: ml/hr, [place] MEQ/ML 00 Infuse Injectable Over: 1 Solution hr, Route: IV, 1,000, Drug form: INJ, ONCE, Priority: STAT, Dosing Weight 54.545 kg, Start date: 04/30/16 20:19:00 MILL MANAGER, Duration: 1 doses or times, Stop date: 04/30/16 20:19:00 MILL MANAGER Sodium 2017-0 No 1,000 mL, [facility] Chloride 1-01 1,000 l 0.154 02:19: ml/hr, [place] MEQ/ML 00 Infuse Injectable Over: 1 Solution hr, Route: IV, 1,000, Drug form: INJ, ONCE, Priority: STAT, Dosing Weight 54.545 kg, Start date: 04/30/16 20:19:00 MILL MANAGER, Duration: 1 doses or times, Stop date: 04/30/16 20:19:00 MILL MANAGER Sodium 2017-0 No 1,000 mL, [facility] Chloride 1-01 1,000 l 0.154 02:19: ml/hr, [place] MEQ/ML 00 Infuse Injectable Over: 1 Solution hr, Route: IV, 1,000, Drug form: INJ, ONCE, Priority: STAT, Dosing Weight 54.545 kg, Start date: 04/30/16 20:19:00 MILL MANAGER, Duration: 1 doses or times, Stop date: 04/30/16 20:19:00 MILL MANAGER Sodium 2017-0 No 1,000 mL, [facility] Chloride 1-01 1,000 l 0.154 02:19: ml/hr, [place] MEQ/ML 00 Infuse Injectable Over: 1 Solution hr, Route: IV, 1,000, Drug form: INJ, ONCE, Priority: STAT, Dosing Weight 54.545 kg, Start date: 04/30/16 20:19:00 MILL MANAGER, Duration: 1 doses or times, Stop date: 04/30/16 20:19:00 MILL MANAGER Sodium 2017-0 No 1,000 mL, [facility] Chloride 1-01 1,000 l 0.154 02:19: ml/hr, [place] MEQ/ML 00 Infuse Injectable Over: 1 Solution hr, Route: IV, 1,000, Drug form: INJ, ONCE, Priority: STAT, Dosing Weight 54.545 kg, Start date: 04/30/16 20:19:00 MILL MANAGER, Duration: 1 doses or times, Stop date: 04/30/16 20:19:00 MILL MANAGER Sodium 2017-0 No 1,000 mL, [facility] Chloride 1-01 1,000 l 0.154 02:19: ml/hr, [place] MEQ/ML 00 Infuse Injectable Over: 1 Solution hr, Route: IV, 1,000, Drug form: INJ, ONCE, Priority: STAT, Dosing Weight 54.545 kg, Start date: 04/30/16 20:19:00 MILL MANAGER, Duration: 1 doses or times, Stop date: 04/30/16 20:19:00 MILL MANAGER tramadol 2015-05 Yes 50 mg = [...] Route: IV, l 0.9% IV 11:21: Start [place] 00 date: 04/30/16 5:21:00 MILL MANAGER, Duration: 30 day, Stop date: 05/30/16 5:20:00 MILL MANAGER, PRN Line Flush BD Normal 2015-05 No Notes: [facility] Saline 2-31 (Same as: l Flush 11:21: BD [place] 00 Posiflush) Sodium 2015-05 No 25 mL, [facility] Chloride 2-31 Route: IV, l 0.9% IV 11:21: Start date: 04/30/16 5:21:00 MILL MANAGER, Duration: 30 day, Stop date: 05/30/16 5:20:00 MILL MANAGER, PRN Line Flush BD Normal 2015-05 No Notes: [facility] Saline 2-31 (Same as: l Flush 11:21: BD [place] 00 Posiflush) Sodium 2015-05 No 25 mL, [facility] Chloride 2-31 Route: IV, l 0.9% IV 11:21: Start date: 04/30/16 5:21:00 MILL MANAGER, Duration: 30 day, Stop date: 05/30/16 5:20:00 MILL MANAGER, PRN Line Flush BD Normal 2015-05 No Notes: [facility] Saline 2-31 (Same as: l Flush 11:21: BD [place] 00 Posiflush) Sodium 2015-05 No 25 mL, [facility] Chloride 2-31 Route: IV, l 0.9% IV 11:21: Start [place] 00 date: 04/30/16 5:21:00 MILL MANAGER, Duration: 30 day, Stop date: 05/30/16 5:20:00 MILL MANAGER, PRN Line Flush BD Normal 2015-05 No Notes: [facility] Saline 2-31 (Same as: l Flush 11:21: BD [place] 00 Posiflush) Sodium 2015-05 No 25 mL, [facility] Chloride 2-31 Route: IV, l 0.9% IV 11:21: Start [place] 00 date: 04/30/16 5:21:00 MILL MANAGER, Duration: 30 day, Stop date: 05/30/16 5:20:00 MILL MANAGER, PRN Line Flush BD Normal 2015-05 No Notes: [facility] Saline 2-31 (Same as: l Flush 11:21: BD [place] Posiflush) Sodium 2015-05 No 25 mL, [facility] Chloride 2-31 Route: IV, l 0.9% IV 11:21: Start date: 04/30/16 5:21:00 MILL MANAGER, Duration: 30 day, Stop date: 05/30/16 5:20:00 MILL MANAGER, PRN Line Flush BD Normal 2015-05 No Notes: [facility] Saline 2-31 (Same as: l Flush 11:21: BD [place] Posiflush) Motrin 2015-05 No 800 mg, 1 [facility] 2-31 tab, l 11:19: Route: PO, [place] 00 Drug form: TAB, ONCE, Dosing Weight 54.545, kg, Priority: STAT, Start date: 04/30/16 5:19:00 MILL MANAGER, Stop date: 04/30/16 5:19:00 MILL MANAGER Motrin 2015-05 No 800 mg, 1 [facility] 2-31 tab, l 11:19: Route: PO, [place] 00 Drug form: TAB, ONCE, Dosing Weight 54.545, kg, Priority: STAT, Start date: 04/30/16 5:19:00 MILL MANAGER, Stop date: 04/30/16 5:19:00 MILL MANAGER Motrin 2015-1 No 800 mg, 1 [facility] 2-31 tab, l 11:19: Route: PO, [place] 00 Drug form: TAB, ONCE, Dosing Weight 54.545, kg, Priority: STAT, Start date: 04/30/16 5:19:00 MILL MANAGER, Stop date: 04/30/16 5:19:00 MILL MANAGER Motrin 2016- No 800 mg, 1 [facility] 2-31 tab, l 11:19: Route: PO, [place] 00 Drug form: TAB, ONCE, Dosing Weight 54.545, kg, Priority: STAT, Start date: 04/30/16 5:19:00 MILL MANAGER, Stop date: 04/30/16 5:19:00 MILL MANAGER Motrin 2016- No 800 mg, 1 [facility] 2-31 tab, l 11:19: Route: PO, [place] 00 Drug form: TAB, ONCE, Dosing Weight 54.545, kg, Priority: STAT, Start date: 04/30/16 5:19:00 MILL MANAGER, Stop date: 04/30/16 5:19:00 MILL MANAGER Motrin 2015- No 800 mg, 1 [facility] 2-31 tab, l 11:19: Route: PO, Drug form: TAB, ONCE, Dosing Weight 54.545, kg, Priority: STAT, Start date: 04/30/16 5:19:00 MILL MANAGER, Stop date: 04/30/16 5:19:00 MILL MANAGER Sodium 2015-05 No 25 mL, [facility] Chloride 2-31 Route: IV, l 0.9% IV 11:07: Start date: 04/30/16 5:07:00 MILL MANAGER, Duration: 30 day, Stop date: 05/30/16 5:06:00 MILL MANAGER, PRN Line Flush BD Normal 2015-05 No Notes: [facility] Saline 2-31 (Same as: l Flush 11:07: BD [place] 00 Posiflush) Sodium 2015-05 No 25 mL, [facility] Chloride 2-31 Route: IV, l 0.9% IV 11:07: Start date: 04/30/16 5:07:00 MILL MANAGER, Duration: 30 day, Stop date: 05/30/16 5:06:00 MILL MANAGER, PRN Line Flush BD Normal 2015-05 No Notes: [facility] Saline 2-31 (Same as: l Flush 11:07: BD [place] 00 Posiflush) Sodium 2015-05 No 25 mL, [facility] Chloride 2-31 Route: IV, l 0.9% IV 11:07: Start date: 04/30/16 5:07:00 MILL MANAGER, Duration: 30 day, Stop date: 05/30/16 5:06:00 MILL MANAGER, PRN Line Flush BD Normal 2015-05 No Notes: [facility] Saline 2-31 (Same as: l Flush 11:07: BD [place] 00 Posiflush) Sodium 2015-05 No 25 mL, [facility] Chloride 2-31 Route: IV, l 0.9% IV 11:07: Start [place] 00 date: 04/30/16 5:07:00 MILL MANAGER, Duration: 30 day, Stop date: 05/30/16 5:06:00 MILL MANAGER, PRN Line Flush BD Normal 2015-05 No Notes: [facility] Saline 2-31 (Same as: l Flush 11:07: BD [place] Posiflush) Sodium 2015-05 No 25 mL, [facility] Chloride 2-31 Route: IV, l 0.9% IV 11:07: Start [place] date: 04/30/16 5:07:00 MILL MANAGER, Duration: 30 day, Stop date: 05/30/16 5:06:00 MILL MANAGER, PRN Line Flush BD Normal 2015-05 No Notes: [facility] Saline 2-31 (Same as: l Flush 11:07: BD [place] Posiflush) Sodium 2015-05 No 25 mL, [facility] Chloride 2-31 Route: IV, l 0.9% IV 11:07: Start [place] date: 04/30/16 5:07:00 MILL MANAGER, Duration: 30 day, Stop date: 05/30/16 5:06:00 MILL MANAGER, PRN Line Flush BD Normal 2015-05 No Notes: [facility] Saline 2-31 (Same as: l Flush 11:07: BD [place] Posiflush) Sodium 2015-05 No 1,000 mL, [facility] Chloride 2-31 1,000 l 0.154 11:01: ml/hr, [place] MEQ/ML 00 Infuse Injectable Over: 1 Solution hr, Route: IV, 1,000, Drug form: INJ, ONCE, Priority: STAT, Dosing Weight 54.545 kg, Start date: 04/30/16 5:01:00 MILL MANAGER, Duration: 1 doses or times, Stop date: 04/30/16 5:01:00 MILL MANAGER Ketorolac 2015-05 No 4 days [facility] 2-31 l 11:01: MEDICATION [place] WASTE Product Size: 30 mg Product Wasted: ___ mg Compazine 2015-05 No Notes: [facility] 2-31 (Same as: l 11:: Compazine) [place] Benadryl 2015-05 No Notes: [facility] 2-31 (Same as: l 11:: Benadryl) [place] 00 Sodium 2015-05 No 1,000 mL, [facility] Chloride 2-31 1,000 l 0.154 11:01: ml/hr, [place] MEQ/ML 00 Infuse Injectable Over: 1 Solution hr, Route: IV, 1,000, Drug form: INJ, ONCE, Priority: STAT, Dosing Weight 54.545 kg, Start date: 04/30/16 5:01:00 MILL MANAGER, Duration: 1 doses or times, Stop date: 04/30/16 5:01:00 MILL MANAGER Ketorolac 2015-05 No 4 days [facility] 2-31 l 11:01: MEDICATION [place] 00 WASTE Product Size: 30 mg Product Wasted: ___ mg Compazine 2015-05 No Notes: [facility] 2-31 (Same as: l :: Compazine) [place] Benadryl 2015-05 No Notes: [facility] 2-31 (Same as: l :: Benadryl) [place] Sodium 2015-05 No 1,000 mL, [facility] Chloride 2-31 1,000 l 0.154 11:01: ml/hr, [place] MEQ/ML 00 Infuse Injectable Over: 1 Solution hr, Route: IV, 1,000, Drug form: INJ, ONCE, Priority: STAT, Dosing Weight 54.545 kg, Start date: 04/30/16 5:01:00 MILL MANAGER, Duration: 1 doses or times, Stop date: 04/30/16 5:01:00 MILL MANAGER Ketorolac 2015-05 No 4 days [facility] 2-31 l 11:01: MEDICATION [place] 00 WASTE Product Size: 30 mg Product Wasted: ___ mg Compazine 2015-05 No Notes: [facility] 2-31 (Same as: l 11:: Compazine) [place] Benadryl 2015-05 No Notes: [facility] 2-31 (Same as: l 11:: Benadryl) [place] 00 Sodium 2015-05 No 1,000 mL, [facility] Chloride 2-31 1,000 l 0.154 11:01: ml/hr, [place] MEQ/ML 00 Infuse Injectable Over: 1 Solution hr, Route: IV, 1,000, Drug form: INJ, ONCE, Priority: STAT, Dosing Weight 54.545 kg, Start date: 04/30/16 5:01:00 [employer], Duration: 1 doses or times, Stop date: 04/30/16 5:01:00 [employer]NA[employer] Ketorolac 2015-05 No 4 days [facility] 2-31 l 11:01: MEDICATION [place] 00 WASTE Product Size: 30 mg Product Wasted: ___ mg Compazine 2015-05 No Notes: [facility] a 2-31 (Same as: l 11:: Compazine) [place] Benadryl 2015-05 No Notes: [facility] 2-31 (Same as: l 11:: Benadryl) [place] 00 Sodium 2015-05 No 1,000 mL, [facility] Chloride 2-31 1,000 l 0.154 11:01: ml/hr, [place] MEQ/ML 00 Infuse Injectable Over: 1 Solution hr, Route: IV, 1,000, Drug form: INJ, ONCE, Priority: STAT, Dosing Weight 54.545 kg, Start date: 04/30/16 5:01:00 MILL MANAGER, Duration: 1 doses or times, Stop date: 04/30/16 5:01:00 [employer] MANA[employer] Ketorolac 2015-05 No 4 days [facility] 2-31 l 11:01: MEDICATION [place] 00 WASTE Product Size: 30 mg Product Wasted: ___ mg Compazine 2015-05 No Notes: [facility] 2-31 (Same as: l 11:: Compazine) [place] 00 Benadryl 2015-05 No Notes: [facility] 2-31 (Same as: l 11:: Benadryl) [place] 00 Ketorolac 2015-05 No 4 days [facility] 2-31 l 11:01: MEDICATION [place] 00 WASTE Product Size: 30 mg Product Wasted: ___ mg Compazine 2015-05 No Notes: [facility] a 2-31 (Same as: l 11:: Compazine) [place] 00 Benadryl 2015-05 No Notes: [facility] 2-31 (Same as: l 11:01: Benadryl) [place] 00 Sodium 2015-05 No 1,000 mL, [facility] Chloride 1,000 l 0.154 11:01: ml/hr, [place] MEQ/ML 00 Infuse Injectable Over: 1 Solution hr, Route: IV, 1,000, Drug form: INJ, ONCE, Priority: STAT, Dosing Weight 54.545 kg, Start date: 04/30/16 5:01:00 M[employer] MANAGER, Duration: 1 doses or times, Stop date: 04/30/16 5:01:00 [employer] MANA[employer] Dexamethaso 2015-05 No Notes: [facility]dal[facility] pilo ne 2-08 Concentrat l 06:19: ion: [place] 00 4mg/ml Dexamethaso 2015-05 No Notes: [place]dal[place] pilo ne 2-08 Concentrat l 06:19: ion: [place] 00 4mg/ml Dexamethaso 2015-05 No Notes: Magdaleno [...] 06-08 Rate: l 0.9% 1000 01:50: 1,000 [place] ml INJ 00 ml/hr, 1,000 mL Infuse over: 1 hr, Route: IV, Dosing Weight 50 kg, Total Volume: 1,000, Start date: 04/06/16 19:50:00 M[employer] MANAGER, Duration: 1 doses or times, Stop date: 04/06/16 20:49:00 MILL MANAGER, Bolus Dose Motrin 2015-05 No Notes: [facility] 2-08 (Same as: l 01:50: Motrin) [place] 00 "Do Not Crush" Take with food. sodium 2016- No 1,000 mL, [facility] a chloride 2-08 Rate: l 0.9% 1000 01:50: 1,000 [place] ml INJ 00 ml/hr, 1,000 mL Infuse over: 1 hr, Route: IV, Dosing Weight 50 kg, Total Volume: 1,000, Start date: 04/06/16 19:50:00 MILL MANAGER, Duration: 1 doses or times, Stop date: 04/06/16 20:49:00 MILL MANAGER, Bolus Dose Motrin 2016 No Notes: Memoria 2-08 (Same as: l 01:50: Motrin) Bryson 00 "Do Not Crush" Take with food. sodium 2015- No 1,000 mL, Memori a chloride 2-08 Rate: l 0.9% 1000 01:50: 1,000 Bryson ml INJ 00 ml/hr, 1,000 mL Infuse over: 1 hr, Route: IV, Dosing Weight 50 kg, Total Volume: 1,000, Start date: 04/06/16 19:50:00 MILL MANAGER, Duration: 1 doses or times, Stop date: 04/06/16 20:49:00 MILL MANAGER, Bolus Dose Motrin 2016- No Notes: Memoria 2-08 (Same as: l 01:50: Motrin) [place] 00 "Do Not Crush" Take with food. sodium 2015- No 1,000 mL, Memori a chloride 2-08 Rate: l 0.9% 1000 01:50: 1,000 Bryson ml INJ 00 ml/hr, 1,000 mL Infuse over: 1 hr, Route: IV, Dosing Weight 50 kg, Total Volume: 1,000, Start date: 04/06/16 19:50:00 MILL MANAGER, Duration: 1 doses or times, Stop date: 04/06/16 20:49:00 MILL MANAGER, Bolus Dose Motrin 2016-1 No Notes: Memoria 2-08 (Same as: l 01:50: Motrin) [place] 00 "Do Not Crush" Take with food. sodium 2015- No 1,000 mL, Memori a chloride 2-08 Rate: l 0.9% 1000 01:50: 1,000 Bryson ml INJ 00 ml/hr, 1,000 mL Infuse over: 1 hr, Route: IV, Dosing Weight 50 kg, Total Volume: 1,000, Start date: 04/06/16 19:50:00 MILL MANAGER, Duration: 1 doses or times, Stop date: 04/06/16 20:49:00 MILL MANAGER, Bolus Dose Motrin 2015-05 No Notes: Memoria 2-08 (Same as: l 01:50: Motrin) [place] 00 "Do Not Crush" Take with food. 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 [place] 00 (Same as: Tylenol) Acetaminoph No Notes: [...] 01-13 not exceed l 06:17: 4 gm/day. [place] 00 (Same as: Tylenol) Acetaminoph No Notes: [...] CDT, Stop date: 01/13/16 22:09:00 CDT benztropine 2014-0 Yes Psychosis 1mg Take 2 Gonzales (COGENTIN) 5- tablets by [facility] 0.5 mg 00:00: mouth 2 tablet 00 times daily as needed for Other (EPS). gabapentin 2013-0 Yes Amphetamine 100mg Q.5D Take 1 Gonzales (NEURONTIN) 5-01 dependence capsule by Health 100 mg 00:00: mouth 2 capsule 00 times daily. gabapentin 2013-0 Yes Amphetamine 300mg Take 1 [place] (NEURONTIN) 5-01 dependence capsule by Health 300 mg 00:00: mouth at capsule 00 bedtime nightly. paliperidon 2013-0 Yes Psychosis 9mg Take 1 Gonzales e (INVEGA) 5-01 tablet by [facility] 9 mg 00:00: mouth extended 00 every release morning. tablet traZODone 0 Yes Psychosis 100mg Take 1 [place] (DESYREL) [facility] 00:[facility]: mouth tablet 00 nightly at bedtime as needed for Sleep. benztropine Yes Psychosis 1mg Take 2 Gonzales (COGENTIN) 5-01 tablets by [facility] 0.5 mg 00:00: mouth 2 tablet 00 times daily as needed for Other (EPS). gabapentin Yes Amphetamine 100mg Q.5D Take 1 [place] (NEURONTIN) 5-01 dependence capsule by Health 100 mg 00:00: mouth 2 capsule 00 times daily. gabapentin Yes Amphetamine 300mg Take 1 [place] (NEURONTIN) 5-01 dependence capsule by Health 300 mg 00:00: mouth at capsule 00 bedtime nightly. paliperidon 2013-0 Yes Psychosis 9mg Take 1 Gonzales e (INVEGA) 5-01 tablet by [facility] 9 mg 00:00: mouth extended 00 every release morning. tablet traZODone 2013-0 Yes Psychosis 100mg Take 1 [place] (DESYREL) [facility] mg 00:[facility]: mouth tablet 00 nightly at bedtime as needed for Sleep. benztropine 2013-0 Yes Psychosis 1mg Take 2 [place] (COGENTIN) 5-01 tablets by [facility] 0.5 mg 00:00: mouth 2 tablet 00 times daily as needed for Other (EPS). gabapentin 2013-0 Yes Amphetamine 100mg Q.5D Take 1 [place] (NEURONTIN) 5-01 dependence capsule by Health 100 mg 00:00: mouth 2 capsule 00 times daily. gabapentin 2013-0 Yes Amphetamine 300mg Take 1 [place] (NEURONTIN) 08-29 dependence capsule by Health 300 mg 00:00: mouth at capsule 00 bedtime nightly. paliperidon Yes Psychosis 9mg Take 1 Gonzales e (INVEGA) 08-29 tablet by [facility] 9 mg 00:00: mouth extended 00 every release morning. tablet traZODone Yes Psychosis 100mg Take 1 Gonzales (DESYREL) 08-29 tablet by [facility] h 100 mg 00:00: mouth tablet 00 [...] 1 Gonzales e (INVEGA) 08-[address] [facility] 9 mg 00:00: 00:00 mouth extended 00 :00 every release morning. tablet traZODone 2021- No Psychosis 100mg Take 1 Gonzales (DESYREL) 08-29 tablet by [facility] 100 mg 00:00: 00:00 mouth tablet [...] 1 Gonzales e (INVEGA) 08-29 tablet by [facility] 9 mg 00:00: 00:00 mouth extended 00 :00 every release morning. tablet traZODone No Psychosis 100mg Take 1 Gonzales (DESYREL) 08-29 tablet by [facility] 100 mg 00:00: 00:00 mouth tablet 00 :00 nightly at bedtime as needed for Sleep. benztropine No Psychosis 1mg Take 2 Gonzales (COGENTIN) 08-29 tablets by [facility] 0.5 mg 00:00: 00:00 mouth 2 tablet 00 :00 times daily as needed for Other (EPS). gabapentin 2021- No Amphetamine 100mg Q.5D Take 1 Gonzales (NEURONTIN) 08-29 dependence capsule by [facility] 100 mg 00:00: 00:00 mouth 2 capsule 00 :00 times daily. gabapentin 2021- No Amphetamine 300mg Take 1 [place] (NEURONTIN) 08-29 dependence capsule by Health 300 mg 00:00: 00:00 mouth at capsule 00 :00 bedtime nightly. paliperidon 2021- No Psychosis 9mg Take 1 Gonzales e (INVEGA) 08-29 tablet by [facility] 9 mg 00:00: 00:00 mouth extended 00 :00 every release morning. tablet traZODone 2021- No Psychosis 100mg Take 1 Gonzales (DESYREL) 08-29 tablet by [facility] 100 mg 00:00: 00:00 mouth tablet 00 :00 nightly at bedtime as needed for Sleep. Keflex 750 Yes Dejon 750 mg, 1 Me moria mg oral - Chibueze cap, PO, l capsule 01:30: Osuagwu Q12H, 10 Her hung 08 cap, Substituti on Allowed Keflex 750 Yes Dejon 750 mg, 1 Me moria mg oral - [place] cap, PO, l capsule 01:30: Osuagwu Q12H, 10 Her hung 08 cap, Substituti on Allowed Keflex 750 2012- Yes Dejon 750 mg, 1 Me moria mg oral - [place] cap, PO, l capsule 01:30: Osuagwu Q12H, 10 Her hung 08 cap, Substituti on Allowed Keflex 750 2012- Yes Dejon 750 mg, 1 Me moria mg oral - [place] cap, PO, l capsule 01:30: Osuagwu Q12H, 10 Her hung 08 cap, Substituti on Allowed Keflex 750 Yes Dejon 750 mg, 1 Me moria mg oral - [place] cap, PO, l capsule 01:30: Osuagwu Q12H, 10 Her hung 08 cap, Substituti on Allowed Keflex 750 2012- Yes Dejon 750 mg, 1 Me moria mg oral - [place] cap, PO, l capsule 01:30: Osuagwu [...] tab, PO, l tablet 17:36: Q4H, PRN, Abidaziz n 02 20 tab, as needed for [...] 50 mg, 1 Memoria mg oral 12-30 raish tab, PO, l tablet 17:36: Q4H, PRN, [...] needed for itching, Substituti on Allowed, TAB [place] Yes Leona H 1 tab, PO, Magdaleno pilo 10/325 oral 12-30 Khraish Q6H, 20 l tablet 17:35: Brsyon grigsby Substituti on Allowed, Maintenanc e, TAB [place] Yes Leona H 1 tab, PO, Magdaleno pilo 10/325 oral 12-30 Khraish Q6H, 20 l tablet 17:35: Bryson grigsby Substituti on Allowed, Maintenanc e, TAB [place] Yes Leona H 1 tab, PO, Magdaleno pilo 10/325 oral 12-30 Khraish Q6H, 20 l tablet 17:35: Bryson grigsby Substituti on Allowed, Maintenanc e, TAB [place] Yes Leona H 1 tab, PO, Magdaleno pilo 10/325 oral 12-30 Khraish Q6H, 20 l tablet 17:35: Bryson grigsby Substituti on Allowed, Maintenanc e, TAB [place] Yes Leona H 1 tab, PO, Magdaleno pilo 10/325 oral - Khraish Q6H, 20 l tablet 17:35: tab, Bryson 52 Substituti on Allowed, Maintenanc e, TAB [place] 2012- Yes Leona H 1 tab, PO, Magdaleno pilo 10/325 oral - Khraish Q6H, 20 l tablet 17:35: tab, [...] day, Stop date: 01/29/13 8:43:00 tramadol 50 2013-0 No Leona H 50 mg, 1 Memoria [...] No Lily 1 gm, Memor ia 12-30 Mahesh Route: l 06:00: IVPB, Drug [place] 00 form: PDR/INJ, ABXQ8H, Dosing Weight 54.545, kg, Start date: 12/30/12 1:00:00, Duration: 2 day, Stop date: 12/31/12 17:00:00 cefazolin 2012-0 No Lily 1 gm, Memor ia 12-30 Mahesh Route: l 06:00: IVPB, Drug [place] form: PDR/INJ, ABXQ8H, Dosing Weight 54.545, kg, Start date: 12/30/12 1:00:00, Duration: 2 day, Stop date: 12/31/12 17:00:00 cefazolin 2012-0 No Lily 1 gm, Memor ia 12-30 Mahesh Route: l 06:00: IVPB, Drug Bryson form: PDR/INJ, ABXQ8H, Dosing Weight 54.545, kg, Start date: 12/30/12 1:00:00, Duration: 2 day, Stop date: 12/31/12 17:00:00 cefazolin 2012-0 No Lily 1 gm, Memor ia 12-30 Aragon Route: l 06:00: IVPB, Drug [place] form: PDR/INJ, ABXQ8H, Dosing Weight 54.545, kg, [...] 2 day, Stop date: 12/31/12 17:00:00 Zofran 2013-0 No Lily 4 mg, 1 Memori a 12-30 Aragon tab, l 05:18: Route: PO, [place] Drug form: TAB, Q8H, Dosing Weight 54.545, kg, PRN Nausea, Start date: 12/30/12 0:18:00, Duration: 30 day, Stop date: 01/29/13 0:17:00 Zofran 2013-0 No Lily 4 mg, 1 Memori a 12-30 Aragon tab, l 05:18: Route: PO, [place] 00 Drug form: TAB, Q8H, Dosing Weight 54.545, kg, PRN Nausea, Start date: 12/30/12 0:18:00, Duration: 30 day, Stop date: 01/29/13 0:17:00 Zofran 2013-0 No Lily 4 mg, 1 Memori a 12-30 Aragon tab, l 05:18: Route: PO, [place] 00 Drug form: TAB, Q8H, Dosing Weight [...] day, Stop date: 01/29/13 0:17:00 Ultram 50 0 No Dejon 100 mg, 2 Mem oria [...] tab, l tablet 03:16: Osuagwu Route: PO, [facility] Drug form: TAB, ONCE, Dosing Weight 54.545, kg, Start date: 12/29/12 22:16:00, Stop date: 12/29/12 22:16:00 Ultram 50 2012-0 No Dejon 100 mg, 2 Mem oria mg oral 12-30 [place] tab, l tablet 03:16: Osuagwu Route: PO, [facility] Drug form: TAB, ONCE, Dosing Weight 54.545, kg, Start date: 12/29/12 22:16:00, Stop date: 12/29/12 22:16:00 Ultram 50 2012-0 No Dejon 100 mg, 2 Mem oria mg oral 12-30 [place] tab, l tablet 03:16: Osuagwu Route: PO, [facility] Drug form: TAB, ONCE, Dosing Weight 54.545, kg, Start date: 12/29/12 22:16:00, Stop date: 12/29/12 22:16:00 Ultram 50 2012-0 No Dejon 100 mg, 2 Mem oria mg oral 12-30 [place] tab, l tablet 03:16: Osuagwu Route: PO, [facility] Drug form: TAB, ONCE, Dosing Weight 54.545, kg, Start date: 12/29/12 22:16:00, Stop date: 12/29/12 22:16:00 Valium 2013-0 No Leona H 5 mg, 1 Memori a - Khraish tab, l 22:00: Route: PO, Drug form: TAB, BID, Dosing Weight 54.545, kg, Start date: 12/29/12 17:00:00, Duration: 30 day, Stop date: 01/28/13 9:00:00 Valium 2013-0 No Leona H 5 mg, 1 Memori a 8-31 Khraish tab, l 22:00: Route: PO, Drug form: TAB, BID, Dosing Weight 54.545, [...] 12-29 Khraish tab, l 22:00: Route: PO, Drug form: TAB, BID, Dosing Weight 54.545, kg, Start date: 12/29/12 17:00:00, Duration: 30 day, Stop date: 01/28/13 9:00:00 Valium 2012-0 No Leona H 5 mg, 1 Memori a 12-29 Khraish tab, l 22:00: Route: PO, Drug form: TAB, BID, Dosing Weight 54.545, kg, Start date: 12/29/12 17:00:00, Duration: 30 day, Stop date: 01/28/13 9:00:00 Valium 2012-0 No Leona H 5 mg, 1 Memori a 12-29 Khraish tab, l 22:00: Route: PO, Drug form: TAB, BID, Dosing Weight 54.545, kg, Start date: 12/29/12 17:00:00, Duration: 30 day, Stop date: 01/28/13 9:00:00 BD 2012-0 No Spencer 5 mL, Memoria Posiflush 12-29 [place] Route: l SF 14:00: IVP, Drug Form: INJ, Q12H, Start date: 12/29/12 9:00:00, Duration: 30 day, Stop date: 01/27/13 21:00:00 nicotine 2012-0 No Татьяна Yen 7 mg, 1 Mem oria 12-29 Thi Alanis patch, l 14:00: Route: [place] 00 TOP, Drug form: ERFILM, Daily, Dosing Weight 54.545, kg, Start date: 12/29/12 9:00:00, Duration: 30 day, Stop date: 01/27/13 9:00:00 multivitami No Татьяна Yen 1 tab, M emoria n -31 Thi Alanis Route: PO, l 14:00: Dosing [...] Spencer 5 mL, Memoria Posiflush 12-29 [place] Route: l SF 14:00: IVP, Drug Form: INJ, Q12H, Start date: 12/29/12 9:00:00, Duration: 30 day, Stop date: 01/27/13 21:00:00 nicotine 2012- No Татьяна Yen 7 mg, 1 Mem oria 12-29 Thi Alanis patch, l 14:00: Route: [place] TOP, Drug form: ERFILM, Daily, Dosing Weight 54.545, kg, Start date: 12/29/12 9:00:00, Duration: 30 day, Stop date: 01/27/13 9:00:00 multivitami 0 No Татьяна Yen 1 tab, M emoria n -31 Thi Alanis Route: PO, l 14:00: Dosing [...] 5 day, Stop date: 01/02/13 9:00:00 BD 2012- No Spencer 5 mL, Memoria Posiflush 12-29 [place] Route: l SF 14:00: IVP, Drug Form: INJ, Q12H, Start date: 12/29/12 9:00:00, Duration: 30 day, Stop date: 01/27/13 21:00:00 nicotine 2012-0 No Татьяна Yen 7 mg, 1 Mem oria 12-29 Thi Alanis patch, l 14:00: Route: TOP, [...] Thi Alanis Route: PO, l 14:00: Daily, [place] 00 Dosing Weight 54.545, kg, Start date: 12/29/12 9:00:00, Duration: 5 day, Stop date: 01/02/13 9:00:00 BD 0 No Spencer 5 mL, Memoria Posiflush 8-31 [place] Route: l SF 14:00: IVP, Drug Form: [...] Татьяна Yen 1 tab, M emoria n -31 Thi Alanis Route: PO, l 14:00: Dosing [...] 5 day, Stop date: 01/02/13 9:00:00 BD 0 No Spencer 5 mL, Memoria Posiflush -31 [place] Route: l SF 14:00: IVP, Drug Form: INJ, Q12H, Start date: 12/29/12 9:00:00, Duration: 30 day, Stop date: 01/27/13 21:00:00 nicotine 2012-0 No Татьяна Yen 7 mg, 1 Mem oria 8-31 Thi Alanis patch, l 14:00: Route: [place] 00 TOP, Drug form: ERFILM, Daily, Dosing Weight 54.545, kg, Start date: 12/29/12 9:00:00, Duration: 30 day, Stop date: 01/27/13 9:00:00 multivitami 2012-0 No Татьяна Yen 1 tab, M emoria n -31 Thi Alanis Route: PO, l 14:00: Dosing Weight 54.545, kg, Daily, Start date: 12/29/12 9:00:00, Duration: 5 day, Stop date: 01/02/13 9:00:00 folic acid 2012-0 No Татьяна Yen 1 mg, Mem oria [...] Spencer 5 mL, Memoria Posiflush 12-29 [place] Route: l SF 14:00: IVP, Drug Form: INJ, Q12H, Start date: 12/29/12 9:00:00, Duration: 30 day, Stop date: 01/27/13 21:00:00 nicotine 2012-0 No Татьяна Yen 7 mg, 1 Mem oria 8-31 Thi Alanis patch, l 14:00: Route: [place] TOP, Drug form: ERFILM, Daily, Dosing Weight [...] Edward 0.25 mL, l 13:07: [place] Route: [place] 00 IVP, Drug form: INJ, Q5Min, Dosing [...] Stop date: Limited # of times labetalol 2012- No Gato 5 mg, 1 Magdaleno pilo 12-29 Edward mL, Route: l 13:07: [place] IVP, Drug Herm boaz 00 form: INJ, Q5Min, Dosing Weight 54.545, kg, PRN Elevated BP, Start date: 12/29/12 8:07:00, Duration: 5 doses or times, Stop date: Limited # of times hydromorpho 2012-0 No Gato 0.5 mg, Me moria ne 12-29 Edward 0.25 mL, l 13:07: [place] Route: [place] 00 IVP, Drug form: INJ, Q5Min, Dosing Weight 54.545, kg, PRN Pain Score 7-10, Start date: 12/29/12 8:07:00, Duration: 5 doses or times, Stop date: Limited # of times flumazenil 2012- No [place] 0.2 mg, 2 M emoria 12-29 Edward mL, Route: l 13:07: [place] IVP, Drug Herm boaz 00 form: INJ, PRN, Dosing Weight 54.545, kg, PRN Benzodiaze pine Reversal, Initial dose, Start date: 12/29/12 8:07:00, Duration: 30 day, Stop date: 01/28/13 8:06:00 ondansetron 2013-0 No Gato 4 mg, 2 Me moria [...] Edward 0.25 mL, l 13:07: [place] Route: [place] 00 IVP, Drug form: INJ, Q5Min, Dosing [...] Edward 0.1 mL, l 13:07: [place] Route: [place] 00 IVP, Drug form: INJ, Q2MIN, Dosing [...] Edward 0.1 mL, l 13:07: [place] Route: [place] IVP, Drug form: INJ, Q2MIN, Dosing Weight [...] Edward 0.25 mL, l 13:07: [place] Route: [place] 00 IVP, Drug form: INJ, Q5Min, Dosing [...] Edward 0.1 mL, l 13:07: [place] Route: [place] IVP, Drug form: INJ, Q2MIN, Dosing Weight [...] Edward 0.25 mL, l 13:07: [place] Route: [place] 00 IVP, Drug form: INJ, Q5Min, Dosing [...] Edward 0.1 mL, l 13:07: [place] Route: [place] 00 IVP, Drug form: INJ, Q2MIN, Dosing Weight 54.545, kg, PRN Narcotic Reversal, Start date: 12/29/12 8:07:00, Duration: 8 doses or times, Stop date: Limited # of times potassium 2013-0 No Татьяна Yen 40 mEq, 2 Memoria chloride 8-31 Thi Alanis tab, l 13:00: Route: PO, [place] 00 Drug form: ERTAB, ONCE, Dosing Weight 54.545, kg, Priority: Routine, Start date: 12/29/12 8:00:00, Stop date: 12/29/12 8:00:00 potassium 2013-0 No Татьяна Yen 40 mEq, 2 Memoria chloride 8-31 Thi Alanis tab, l 13:00: Route: PO, [place] 00 Drug form: ERTAB, ONCE, Dosing Weight 54.545, kg, Priority: Routine, Start date: 12/29/12 8:00:00, Stop date: 12/29/12 8:00:00 potassium 2013-0 No Татьяна Yen 40 mEq, 2 Memoria chloride 8-31 Thi Alanis tab, l 13:00: Route: PO, [place] 00 Drug form: ERTAB, ONCE, Dosing Weight 54.545, kg, Priority: Routine, Start date: 12/29/12 8:00:00, Stop date: 12/29/12 8:00:00 potassium 2013-0 No Татьяна Yen 40 mEq, 2 Memoria chloride 8-31 Thi Alanis tab, l 13:00: Route: PO, [place] 00 Drug form: ERTAB, ONCE, Dosing Weight 54.545, kg, Priority: Routine, Start date: 12/29/12 8:00:00, Stop date: 12/29/12 8:00:00 potassium 2013-0 No Татьяна Yen 40 mEq, 2 Memoria chloride 8-31 Thi Alanis tab, l 13:00: Route: PO, [place] 00 Drug form: ERTAB, ONCE, Dosing Weight 54.545, kg, Priority: Routine, Start date: 12/29/12 8:00:00, Stop date: 12/29/12 8:00:00 potassium 2013-0 No Татьяна Yen 40 mEq, 2 Memoria chloride 8-31 Thi Alanis tab, l 13:00: Route: PO, [place] 00 Drug form: ERTAB, ONCE, Dosing Weight 54.545, kg, Priority: Routine, Start date: 12/29/12 8:00:00, Stop date: 12/29/12 8:00:00 [place] 0 No Татьяна Yen 1 tab, Memoria 10/325 oral 8-31 Thi Alanis Route: PO, l tablet 11:00: Drug Form: Karley nn 00 TAB, Dosing Weight 54.545, kg, Q6H, Start date: 12/29/12 6:00:00, Duration: 30 day, Stop date: 01/28/13 0:00:00 [place] 0 No Татьяна Yen 1 tab, Memoria 10/325 oral 8-31 Thi Alanis Route: PO, l tablet 11:00: Drug Form: Karley nn 00 TAB, Dosing Weight 54.545, kg, Q6H, Start date: 12/29/12 6:00:00, Duration: 30 day, Stop date: 01/28/13 0:00:00 [place] 0 No Татьяна Yen 1 tab, Memoria 10/325 oral 8-31 Thi Alanis Route: PO, l tablet 11:00: Drug Form: Karley nn 00 TAB, Dosing Weight 54.545, kg, Q6H, Start date: 12/29/12 6:00:00, Duration: 30 day, Stop date: 01/28/13 0:00:00 [place] 0 No Татьяна Yen 1 tab, Memoria 10/325 oral 8-31 Thi Alanis Route: PO, l tablet 11:00: Drug Form: Karley nn 00 TAB, Dosing Weight 54.545, kg, Q6H, Start date: 12/29/12 6:00:00, Duration: 30 day, Stop date: 01/28/13 0:00:00 [place] 0 No Татьяна Yen 1 tab, Memoria 10/325 oral 8-31 Thi Alanis Route: PO, l tablet 11:00: Drug Form: Karley nn 00 TAB, Dosing Weight 54.545, kg, Q6H, Start date: 12/29/12 6:00:00, Duration: 30 day, Stop date: 01/28/13 0:00:00 [place] 0 No Татьяна Yen 1 tab, Memoria 10/325 oral 8-31 Thi Alanis Route: PO, l tablet 11:00: Drug Form: Karley nn 00 TAB, Dosing Weight 54.545, kg, Q6H, Start date: 12/29/12 6:00:00, Duration: 30 day, Stop date: 01/28/13 0:00:00 LORAzepam 2012-0 No Татьяна Yen 0.5 mg, Me moria 8-31 Thi Alanis 0.25 mL, l 10:22: Route: [place] 00 IVP, Drug form: INJ, Q2H, Dosing [...] 30 day, Stop date: 01/28/13 5:21:00 normal No Татьяна Yen 1,000 mL, Mem oria [...] Khraish mL, Route: l 09:34: IV, Drug [place] 00 form: INJ, Q4H, Dosing Weight 54.545, kg, PRN as needed for pain, Start date: 12/29/12 4:34:00, Duration: 30 day, Stop date: 01/28/13 4:33:00 normal 2012- No Татьяна Yen 1,000 mL, [...] Khraish mL, Route: l 09:34: IV, Drug [place] 00 form: INJ, Q4H, Dosing Weight 54.545, [...] Khraish mL, Route: l 09:34: IV, Drug [place] 00 form: INJ, Q4H, Dosing Weight 54.545, kg, PRN as needed for pain, Start date: 12/29/12 4:34:00, Duration: 30 day, Stop date: 01/28/13 4:33:00 normal 2012-0 No Татьяна Yen 1,000 mL, Mem oria saline 0.9% 8- Thi Alanis Rate: 75 l IV 1,000 mL 09:34: ml/hr, Herm boaz Infuse over: 13.3 hr, Route: IV, Dosing Weight 54.545 kg, Total Volume: 1,000, Start date: 12/29/12 4:34:00, Duration: 30 day, Stop date: 01/28/13 4:33:00 morphine 2012-0 No Leona H 2 mg, 1 Magdaleno pilo Sulfate 8-31 Khraish mL, Route: l 09:34: IV, Drug Bryson form: INJ, Q4H, Dosing Weight 54.545, kg, PRN as needed for pain, Start date: 12/29/12 4:34:00, Duration: 30 day, Stop date: 01/28/13 4:33:00 Saline 2012-0 No Татьяна Yen 5 mL, Memoria Flush 0.9% 8-31 Thi Alanis Route: l 09:32: IVP, Drug [place] Form: INJ, Dosing Weight 54.545, kg, PRN, [...] Thi Alanis Route: l 09:32: IVP, Drug [place] 00 Form: INJ, Dosing Weight 54.545, kg, [...] Thi Alanis Route: l 09:32: IVP, Drug [place] 00 Form: INJ, Dosing Weight 54.545, kg, PRN, PRN Line Flush, Start date: 12/29/12 4:32:00, Duration: 30 day, Stop date: 01/28/13 4:31:00 potassium 2012-0 No Татьяна Yen 40 mEq, 2 Memoria chloride 8- Thi Alanis tab, l 09:31: Route: PO, [place] 00 Drug form: ERTAB, ONCE, Dosing Weight [...] Thi Alanis tab, l 09:31: Route: PO, [place] 00 Drug form: ERTAB, ONCE, Dosing Weight [...] Thi Alanis tab, l 09:31: Route: PO, [place] 00 Drug form: ERTAB, ONCE, Dosing Weight [...] 2 mg, 1 Memori a 8-31 [place] mL, Route: l 06:34: IVP, Drug Bryson 00 form: INJ, ONCE, Dosing Weight 54.545, kg, Priority: STAT, Start date: 12/29/12 1:34:00, Stop date: 12/29/12 1:34:00 Ativan 2012-0 No Spencer 2 mg, 1 Memori a 8-31 [place] mL, Route: l 06:34: IVP, Drug Bryson 00 form: INJ, ONCE, Dosing Weight 54.545, kg, Priority: STAT, Start date: 12/29/12 1:34:00, Stop date: 12/29/12 1:34:00 Ativan 2012-0 No Spencer 2 mg, 1 Memori a 8-31 [place] mL, Route: l 06:34: IVP, Drug [place] 00 form: INJ, ONCE, Dosing Weight 54.545, kg, Priority: STAT, Start date: 12/29/12 1:34:00, Stop date: 12/29/12 1:34:00 Ativan 2012-0 No Spencer 2 mg, 1 Memori a 8-31 [place] mL, Route: l 06:34: IVP, Drug Bryson 00 form: INJ, ONCE, Dosing Weight 54.545, kg, Priority: STAT, Start date: 12/29/12 1:34:00, Stop date: 12/29/12 1:34:00 Ativan 2012-0 No Spencer 2 mg, 1 Memori a 8-31 [place] mL, Route: l 06:34: IVP, Drug Bryson 00 form: INJ, ONCE, Dosing Weight 54.545, kg, Priority: STAT, Start date: 12/29/12 1:34:00, Stop date: 12/29/12 1:34:00 Ativan 2012-0 No Spencer 2 mg, 1 Memori a 8-31 [place] mL, Route: l 06:34: IVP, Drug [place] 00 form: INJ, ONCE, Dosing Weight 54.545, kg, Priority: STAT, Start date: 12/29/12 1:34:00, Stop date: 12/29/12 1:34:00 Ancef 2012-0 No Spencer 1 gm, Memoria 8-31 [place] Route: l 06:16: IVPB, Drug [place] 00 form: PDR/INJ, ONCE, Dosing Weight 54.545, kg, Priority: STAT, Start date: 12/29/12 1:16:00, Stop date: 12/29/12 1:16:00 gentamicin 2012-0 No [place] 272 mg, Me moria + Sodium 8-31 [place] 6.8 mL, l Chloride 06:16: Route: [place] 0.9% IV 100 00 IVPB, mL ONCE, Dosing Weight 54.545, kg, Priority: STAT, Start date: 12/29/12 1:16:00, Stop date: 12/29/12 1:16:00 Ancef 0 No [place] 1 gm, Memoria 8-31 [place] Route: l 06:16: IVPB, Drug [place] form: PDR/INJ, ONCE, Dosing Weight 54.545, kg, Priority: STAT, Start date: 12/29/12 1:16:00, Stop date: 12/29/12 1:16:00 gentamicin 2012-0 No [place] 272 mg, Me moria + Sodium 8-31 [place] 6.8 mL, l Chloride 06:16: Route: [place] 0.9% IV 100 00 IVPB, mL ONCE, Dosing Weight 54.545, kg, Priority: STAT, Start date: 12/29/12 1:16:00, Stop date: 12/29/12 1:16:00 Ancef 0 No [place] 1 gm, Memoria 8-31 [place] Route: l 06:16: IVPB, Drug [place] form: PDR/INJ, ONCE, Dosing Weight 54.545, kg, Priority: STAT, Start date: 12/29/12 1:16:00, Stop date: 12/29/12 1:16:00 gentamicin 2012-0 No [place] 272 mg, Me moria + Sodium 8-31 [place] 6.8 mL, l Chloride 06:16: Route: [place] 0.9% IV 100 00 IVPB, mL ONCE, Dosing Weight 54.545, kg, Priority: STAT, Start date: 12/29/12 1:16:00, Stop date: 12/29/12 1:16:00 Ancef 2012-0 No [place] 1 gm, Memoria 8-31 [place] Route: l 06:16: IVPB, Drug [place] 00 form: PDR/INJ, ONCE, Dosing Weight 54.545, kg, Priority: STAT, Start date: 12/29/12 1:16:00, Stop date: 12/29/12 1:16:00 gentamicin 2012-0 No [place] 272 mg, Me moria + Sodium 8-31 [place] 6.8 mL, l Chloride 06:16: Route: [place] 0.9% IV 100 00 IVPB, mL ONCE, Dosing Weight 54.545, kg, Priority: STAT, Start date: 12/29/12 1:16:00, Stop date: 12/29/12 1:16:00 Ancef 2012-0 No [place] 1 gm, Memoria 8- [place] Route: l 06:16: IVPB, Drug [place] form: PDR/INJ, ONCE, Dosing Weight 54.545, kg, Priority: STAT, Start date: 12/29/12 1:16:00, Stop date: 12/29/12 1:16:00 gentamicin 2012-0 No Spencer 272 mg, Me moria + Sodium 8-31 [place] 6.8 mL, l Chloride 06:16: Route: Bryson 0.9% IV 100 00 IVPB, mL ONCE, Dosing Weight 54.545, kg, Priority: STAT, Start date: 12/29/12 1:16:00, Stop date: 12/29/12 1:16:00 Ancef 2012-0 No Spencer 1 gm, Memoria - [place] Route: l 06:16: IVPB, Drug [place] 00 form: PDR/INJ, ONCE, Dosing Weight 54.545, kg, Priority: STAT, Start date: 12/29/12 1:16:00, Stop date: 12/29/12 1:16:00 gentamicin 2012-0 No Specner 272 mg, Me moria + Sodium 8-31 [place] 6.8 mL, l Chloride 06:16: Route: [place] 0.9% IV 100 00 IVPB, mL ONCE, Dosing Weight 54.545, kg, Priority: STAT, Start date: 12/29/12 1:16:00, Stop date: 12/29/12 1:16:00 lidocaine-e 2012-0 No Spencer 1 ml, Mem oria pi - [place] Route: l 1%-1:[id number] 05:42: SUB-Q, Herm boaz Drug Form: SOLN, Dosing Weight 54.545, kg, ONCE, STAT, Start date: 12/29/12 0:42:00, Stop date: 12/29/12 0:42:00 lidocaine-e 2012-0 No Spencer 1 ml, Mem oria pi 8- [place] Route: l 1%-1:[id number] 05:42: SUB-Q, Herm boaz 00 Drug Form: SOLN, Dosing Weight 54.545, kg, ONCE, STAT, Start date: 12/29/12 0:42:00, Stop date: 12/29/12 0:42:00 lidocaine-e No Spencer 1 ml, Mem oria pi 8 [place] Route: l 1%-1:[id number] 05:42: SUB-Q, Herm boaz 00 Drug Form: SOLN, Dosing Weight 54.545, kg, ONCE, STAT, Start date: 12/29/12 0:42:00, Stop date: 12/29/12 0:42:00 lidocaine-e No Spencer 1 ml, Mem oria pi - [place] Route: l 1%-1:[id number] 05:42: SUB-Q, Herm boaz 00 Drug Form: SOLN, Dosing Weight 54.545, kg, ONCE, STAT, Start date: 12/29/12 0:42:00, Stop date: 12/29/12 0:42:00 lidocaine-e No Spencer 1 ml, Mem oria pi - [place] Route: l 1%-1:[id number] 05:42: SUB-Q, Herm boaz 00 Drug Form: SOLN, Dosing Weight 54.545, kg, ONCE, STAT, Start date: 12/29/12 0:42:00, Stop date: 12/29/12 0:42:00 lidocaine-e 2012-0 No Spencer 1 ml, Mem oria pi 8- [place] Route: l 1%-1:[id number] 05:42: SUB-Q, Herm boaz 00 Drug Form: SOLN, Dosing Weight 54.545, kg, ONCE, STAT, Start date: 12/29/12 0:42:00, Stop date: 12/29/12 0:42:00 Dilaudid 2012-0 No Spencer 2 mg, 1 Magdal[place] pilo 8-31 [place] mL, Route: l 05:41: IV, Drug [place] 00 form: INJ, ONCE, Dosing Weight 54.545, kg, Start date: 12/29/12 0:41:00, Stop date: 12/29/12 0:41:00 Dilaudid 2012-0 No Spencer 2 mg, 1 Magdal[place] pilo 8-31 [place] mL, Route: l 05:41: IV, Drug [place] 00 form: INJ, ONCE, Dosing Weight 54.545, kg, Start date: 12/29/12 0:41:00, Stop date: 12/29/12 0:41:00 Dilaudid 2012-0 No Spencer 2 mg, 1 [place]dal[place] pilo 8-31 [place] mL, Route: l 05:41: IV, Drug [place] 00 form: INJ, ONCE, Dosing Weight 54.545, kg, Start date: 12/29/12 0:41:00, Stop date: 12/29/12 0:41:00 Dilaudid 2012-0 No Spencer 2 mg, 1 Magdal[place] pilo 8-31 [place] mL, Route: l 05:41: IV, Drug [place] 00 form: INJ, ONCE, Dosing Weight 54.545, kg, Start date: 12/29/12 0:41:00, Stop date: 12/29/12 0:41:00 Dilaudid 2012-0 No Spencer 2 mg, 1 Magdal[place] pilo 8-31 [place] mL, Route: l 05:41: IV, Drug [place] 00 form: INJ, ONCE, Dosing Weight 54.545, kg, Start date: 12/29/12 0:41:00, Stop date: 12/29/12 0:41:00 Dilaudid 2012-0 No Spencer 2 mg, 1 Magdal[place] pilo 8-31 [place] mL, Route: l 05:41: IV, Drug [place] 00 form: INJ, ONCE, Dosing Weight 54.545, kg, Start date: 12/29/12 0:41:00, Stop date: 12/29/12 0:41:00 Dilaudid 2012-0 No Spencer 1 mg, 0.5 Me moria 8-31 [place] mL, Route: l 04:19: IV, Drug [place] 00 form: INJ, ONCE, Dosing Weight 54.545, kg, Start date: 12/28/12 23:19:00, Stop date: 12/28/12 23:19:00 Dilaudid 2012-0 No Spencer 1 mg, 0.5 Me moria 8-31 [place] mL, Route: l 04:19: IV, Drug [place] 00 form: INJ, ONCE, Dosing Weight 54.545, kg, Start date: 12/28/12 23:19:00, Stop date: 12/28/12 23:19:00 Dilaudid 2012-0 No Spencer 1 mg, 0.5 Me moria 8-31 [place] mL, Route: l 04:19: IV, Drug [place] 00 form: INJ, ONCE, Dosing Weight 54.545, kg, Start date: 12/28/12 23:19:00, Stop date: 12/28/12 23:19:00 Dilaudid 2012-0 No Spencer 1 mg, 0.5 Me moria 8-31 [place] mL, Route: l 04:19: IV, Drug [place] 00 form: INJ, ONCE, Dosing Weight 54.545, kg, Start date: 12/28/12 23:19:00, Stop date: 12/28/12 23:19:00 Dilaudid 2012-0 No Spencer 1 mg, 0.5 Me moria 8-31 [place] mL, Route: l 04:19: IV, Drug [place] form: INJ, ONCE, Dosing Weight 54.545, kg, Start date: 12/28/12 23:19:00, Stop date: 12/28/12 23:19:00 Dilaudid 2012-0 No Psencer 1 mg, 0.5 Me moria 8-31 [place] mL, Route: l 04:19: IV, Drug [place] 00 form: INJ, ONCE, Dosing Weight 54.545, kg, Start date: 12/28/12 23:19:00, Stop date: 12/28/12 23:19:00 Sodium 2013-0 No Spencer IV, 1000 Memor ia Chloride 8-31 [place] ml/hr, l 0.9% IV 03:30: Q1H, Start Herm boaz date: 12/28/12 22:30:00, Duration: 2, 1,000 ml Sodium 2013-0 No Spencer IV, 1000 Memor ia Chloride 8-31 [place] ml/hr, l 0.9% IV 03:30: Q1H, Start Herm boaz date: 12/28/12 22:30:00, Duration: 2, 1,000 ml Sodium 2013-0 No Spencer IV, 1000 Memor ia Chloride 8-31 [place] ml/hr, l 0.9% IV 03:30: Q1H, Start Herm date: 12/28/12 22:30:00, Duration: 2, 1,000 ml Sodium 2013-0 No Spencer IV, 1000 Memor ia Chloride 8-31 [place] ml/hr, l 0.9% IV 03:30: Q1H, Start Herm date: 12/28/12 22:30:00, Duration: 2, 1,000 ml Sodium 2013-0 No Spencer IV, 1000 Memor ia Chloride 8-31 [place] ml/hr, l 0.9% IV 03:30: Q1H, Start Herm date: 12/28/12 22:30:00, Duration: 2, 1,000 ml Sodium 2013-0 No Spencer IV, 1000 Memor ia Chloride 8-31 [place] ml/hr, l 0.9% IV 03:30: Q1H, Start Herm date: 12/28/12 22:30:00, Duration: 2, 1,000 ml morphine 2013-0 No Spencer 4 mg, Memori a Sulfate 8-31 [place] Route: l 03:14: IVP, Drug [place] form: INJ, ONCE, Dosing Weight 54.545, kg, Priority: STAT, Start date: 12/28/12 22:14:00, Stop date: 12/28/12 22:14:00 morphine 2013-0 No Spencer 4 mg, Memori a Sulfate 8-31 [place] Route: l 03:14: IVP, Drug [place] form: INJ, ONCE, Dosing Weight 54.545, kg, Priority: STAT, Start date: 12/28/12 22:14:00, Stop date: 12/28/12 22:14:00 morphine 2012-0 No Spencer 4 mg, Memori a Sulfate 8-31 [place] Route: l 03:14: IVP, Drug [place] 00 form: INJ, ONCE, Dosing Weight 54.545, kg, Priority: STAT, Start date: 12/28/12 22:14:00, Stop date: 12/28/12 22:14:00 morphine 2012-0 No Spencer 4 mg, Memori a Sulfate 8-31 [place] Route: l 03:14: IVP, Drug [place] 00 form: INJ, ONCE, Dosing Weight 54.545, kg, Priority: STAT, Start date: 12/28/12 22:14:00, Stop date: 12/28/12 22:14:00 morphine 2012-0 No Spencer 4 mg, Memori a Sulfate 8-31 [place] Route: l 03:14: IVP, Drug [place] 00 form: INJ, ONCE, Dosing Weight 54.545, kg, Priority: STAT, Start date: 12/28/12 22:14:00, Stop date: 12/28/12 22:14:00 morphine 2012-0 No Spencer 4 mg, Memori a Sulfate 8-31 [place] Route: l 03:14: IVP, Drug [place] 00 form: INJ, ONCE, Dosing Weight 54.545, kg, Priority: STAT, Start date: 12/28/12 22:14:00, Stop date: 12/28/12 22:14:00 NS 2000 mL 2012-0 No Spencer 2,000 mL, Memoria 8-31 [place] Rate: l 02:58: 2,000 [place] 00 ml/hr, Infuse over: 1 hr, Route: IV, Dosing Weight 54.545 kg, Total Volume: 2,000, Start date: 12/28/12 21:58:00, Duration: 1 doses or times, Stop date: 12/28/12 22:57:00, Bolus DoseBolus Dose NS 2000 mL 2012-0 No Spencer 2,000 mL, Memoria 8-31 [place] Rate: l 02:58: 2,000 [place] 00 ml/hr, Infuse over: 1 hr, Route: IV, Dosing Weight 54.545 kg, Total Volume: 2,000, Start date: 12/28/12 21:58:00, Duration: 1 doses or times, Stop date: 12/28/12 22:57:00, Bolus DoseBolus Dose NS 2000 mL 2012-0 No Spencer 2,000 mL, Memoria 8-31 [place] Rate: l 02:58: 2,000 [place] 00 ml/hr, Infuse over: 1 hr, Route: IV, Dosing Weight 54.545 kg, Total Volume: 2,000, Start date: 12/28/12 21:58:00, Duration: 1 doses or times, Stop date: 12/28/12 22:57:00, Bolus DoseBolus Dose NS 2000 mL 2012-0 No Spencer 2,000 mL, Memoria 8-31 [place] Rate: l 02:58: 2,000 [place] 00 ml/hr, Infuse over: 1 hr, Route: IV, Dosing Weight 54.545 kg, Total Volume: 2,000, Start date: 12/28/12 21:58:00, Duration: 1 doses or times, Stop date: 12/28/12 22:57:00, Bolus DoseBolus Dose NS 2000 mL 2012-0 No Spencer 2,000 mL, Memoria 8-31 [place] Rate: l 02:58: 2,000 [place] 00 ml/hr, Infuse over: 1 hr, Route: IV, Dosing Weight 54.545 kg, Total Volume: 2,000, Start date: 12/28/12 21:58:00, Duration: 1 doses or times, Stop date: 12/28/12 22:57:00, Bolus DoseBolus Dose NS 2000 mL 0 No Spencer 2,000 mL, Memoria 8-31 [place] Rate: l 02:58: 2,000 [place] 00 ml/hr, Infuse over: 1 hr, Route: IV, Dosing Weight 54.545 kg, Total Volume: 2,000, Start date: 12/28/12 21:58:00, Duration: 1 doses or times, Stop date: 12/28/12 22:57:00, Bolus DoseBolus Dose Visipaque 2012-0 No Spencer 63 mL, Magdaleno pilo 320mg/ml 8-31 [place] Route: l 01:59: IVP, Drug [place] Form: SOLN, kg, ONCALL, STAT, Start date: 12/28/12 20:59:00, Duration: 1 doses or times, Weight = 40 - 59kg -- "To be infused by Radiology Staff ONLY"Weigh t = 40 - 59kg -- "To be infused by Radiology Staff ONLY" Visipaque No Spencer 63 mL, Magdaleno pilo 320mg/ml 8-31 [place] Route: l 01:59: IVP, Drug [place] Form: SOLN, kg, ONCALL, STAT, Start date: 12/28/12 20:59:00, Duration: 1 doses or times, Weight = 40 - 59kg -- "To be infused by Radiology Staff ONLY"Weigh t = 40 - 59kg -- "To be infused by Radiology Staff ONLY" Visipaque No Spencer 63 mL, Magdaleno pilo 320mg/ml 8-31 [place] Route: l 01:59: IVP, Drug [place] Form: SOLN, kg, ONCALL, STAT, Start date: 12/28/12 20:59:00, Duration: 1 doses or times, Weight = 40 - 59kg -- "To be infused by Radiology Staff ONLY"Weigh t = 40 - 59kg -- "To be infused by Radiology Staff ONLY" Visipaque No Spencer 63 mL, Magdaleno pilo 320mg/ml 8-31 [place] Route: l 01:59: IVP, Drug [place] Form: SOLN, kg, ONCALL, STAT, Start date: 12/28/12 20:59:00, Duration: 1 doses or times, Weight = 40 - 59kg -- "To be infused by Radiology Staff ONLY"Weigh t = 40 - 59kg -- "To be infused by Radiology Staff ONLY" Visipaque No Spencer 63 mL, Magdaleno pilo 320mg/ml 8-31 [place] Route: l 01:59: IVP, Drug [place] Form: SOLN, kg, ONCALL, STAT, Start date: 12/28/12 20:59:00, Duration: 1 doses or times, Weight = 40 - 59kg -- "To be infused by Radiology Staff ONLY"Weigh t = 40 - 59kg -- "To be infused by Radiology Staff ONLY" Visipaque No Spencer 63 mL, Magdaleno pilo 320mg/ml 12-29 [place] Route: l 01:59: IVP, Drug [place] 00 Form: SOLN, kg, ONCALL, STAT, Start date: 12/28/12 20:59:00, Duration: 1 doses or times, Weight = 40 - 59kg -- "To be infused by Radiology Staff ONLY"Weigh t = 40 - 59kg -- "To be infused by Radiology Staff ONLY" morphine No Spencer 4 mg, 1 [place] pilo Sulfate - [place] mL, Route: l 01:56: IVP, Drug [place] 00 form: INJ, ONCE, kg, Priority: STAT, Start date: 12/28/12 20:56:00, Stop date: 12/28/12 20:56:00 ondansetron No [place] 4 mg, 2 M emoria -31 [place] mL, Route: l 01:56: IVP, Drug [place] 00 form: INJ, ONCE, kg, Priority: STAT, Start date: 12/28/12 20:56:00, Stop date: 12/28/12 20:56:00 Saline No Spencer 5 ml, Memoria Flush 0.9% 12-29 [place] Route: l 01:56: IVP, Drug [place] 00 Form: INJ, kg, PRN, PRN Line Flush, Administer at least once every 12 hours, Start date: 12/28/12 20:56:00, Duration: 30 day, Stop date: 01/27/13 20:55:00 morphine No Spencer 4 mg, 1 [place] pilo Sulfate -31 [place] mL, Route: l 01:56: IVP, Drug [place] 00 form: INJ, ONCE, kg, Priority: STAT, Start date: 12/28/12 20:56:00, Stop date: 12/28/12 20:56:00 ondansetron 0 No [place] 4 mg, 2 M emoria 8-31 [place] mL, Route: l 01:56: IVP, Drug [place] form: INJ, ONCE, kg, Priority: STAT, Start date: 12/28/12 20:56:00, Stop date: 12/28/12 20:56:00 Saline 2012-0 No Spencer 5 ml, Memoria Flush 0.9% 8-31 [place] Route: l 01:56: IVP, Drug [place] 00 Form: INJ, kg, PRN, PRN Line Flush, Administer at least once every 12 hours, Start date: 12/28/12 20:56:00, Duration: 30 day, Stop date: 01/27/13 20:55:00 morphine 2012-0 No Spencer 4 mg, 1 [place] pilo Sulfate 8-31 [place] mL, Route: l 01:56: IVP, Drug [place] 00 form: INJ, ONCE, kg, Priority: STAT, Start date: 12/28/12 20:56:00, Stop date: 12/28/12 20:56:00 ondansetron 2012-0 No [place] 4 mg, 2 M emoria 8-31 [place] mL, Route: l 01:56: IVP, Drug [place] 00 form: INJ, ONCE, kg, Priority: STAT, Start date: 12/28/12 20:56:00, Stop date: 12/28/12 20:56:00 Saline 2012-0 No Spencer 5 ml, Memoria Flush 0.9% 8-31 [place] Route: l 01:56: IVP, Drug [place] 00 Form: INJ, kg, PRN, PRN Line Flush, Administer at least once every 12 hours, Start date: 12/28/12 20:56:00, Duration: 30 day, Stop date: 01/27/13 20:55:00 morphine 2012-0 No Spencer 4 mg, 1 Magdal[place] pilo Sulfate 8-31 [place] mL, Route: l 01:56: IVP, Drug [place] 00 form: INJ, ONCE, kg, Priority: STAT, Start date: 12/28/12 20:56:00, Stop date: 12/28/12 20:56:00 ondansetron 2012-0 No Spencer 4 mg, 2 M emoria 8-31 [place] mL, Route: l 01:56: IVP, Drug [place] 00 form: INJ, ONCE, kg, Priority: STAT, Start date: 12/28/12 20:56:00, Stop date: 12/28/12 20:56:00 Saline 2012-0 No Spencer 5 ml, Memoria Flush 0.9% 8-31 [place] Route: l 01:56: IVP, Drug [place] 00 Form: INJ, kg, PRN, PRN Line Flush, Administer at least once every 12 hours, Start date: 12/28/12 20:56:00, Duration: 30 day, Stop date: 01/27/13 20:55:00 morphine 2012-0 No Spencer 4 mg, 1 Magdal[place] pilo Sulfate 8-31 [place] mL, Route: l 01:56: IVP, Drug [place] 00 form: INJ, ONCE, kg, Priority: STAT, Start date: 12/28/12 20:56:00, Stop date: 12/28/12 20:56:00 ondansetron 2012-0 No [place] 4 [facility] [place] mL, Route: l 01:56: IVP, Drug [place] 00 form: INJ, ONCE, kg, Priority: STAT, Start date: 12/28/12 20:56:00, Stop date: 12/28/12 20:56:00 Saline 2012-0 No Spencer 5 ml, Memoria Flush 0.9% 8- [place] Route: l 01:56: IVP, Drug [place] 00 Form: INJ, kg, PRN, PRN Line Flush, Administer at least once every 12 hours, Start date: 12/28/12 20:56:00, Duration: 30 day, Stop date: 01/27/13 20:55:00 morphine 2012-0 No Spencer 4 mg, 1 [place]dal[place] pilo Sulfate 8-31 [place] mL, Route: l 01:56: IVP, Drug [place] 00 form: INJ, ONCE, kg, Priority: STAT, Start date: 12/28/12 20:56:00, Stop date: 12/28/12 20:56:00 ondansetron 2012-0 No Spencer 4 mg, 2 M emoria 12-29 [place] mL, Route: l 01:56: IVP, Drug [place] 00 form: INJ, ONCE, kg, Priority: STAT, Start date: 12/28/12 20:56:00, Stop date: 12/28/12 20:56:00 Saline 2013-0 No Spencer 5 ml, Memoria Flush 0.9% 12-29 [place] Route: l 01:56: IVP, Drug [place] 00 Form: INJ, kg, PRN, PRN Line Flush, Administer at least once every 12 hours, Start date: 12/28/12 20:56:00, Duration: 30 day, Stop date: 01/27/13 20:55:00 Vital Signs Vital Name Observation Time Observation Value Comments Source Systolic blood 2021-05-30 118 mm[Hg] [facility] 08:21: [facility] Diastolic blood 2021-05-30 79 mm[Hg] [place] [facility] pressure 08:21:00 [facility] Heart rate 2021-05-30 91 /min [facility] 08:21:00 [facility] Body temperature 2021-05-30 36.83 Sarah Beth [facility] 08:21:00 [facility] Respiratory rate 2021-05-30 20 /min [facility] 08:21:00 [facility] Body weight 2021-05-30 56.7 kg [facility] 08:21:00 [facility] BMI 2021-05-30 18.46 kg/m2 [facility] 08:21:00 [facility] Oxygen saturation 2021-05-30 100 /min [facility] in Arterial blood 08:21:00 [facility] by Pulse oximetry [place] Systolic blood 2022-04-28 128 mm[Hg] [facility] pressure 01:20: [facility] Diastolic blood 2022-04-28 75 mm[Hg] [facility] pressure 01:20: [facility] Heart rate 2022-04-28 78 /min [facility] 01:20: [facility] Body temperature 2022-04-28 36.22 Sarah Beth [facility] 01:20: [facility] Respiratory rate 2022-04-28 17 /min [facility] 01:20: [facility] Oxygen saturation 2022-04-28 98 /min [facility] in Arterial blood 01:20:01 [facility] by Pulse oximetry Body height 2022-04-27 175.3 cm [facility] 22:09:00 [facility] Body weight 2022-04-27 63.504 kg [facility] 22:09:00 [facility] BMI 2022-04-27 20.67 kg/m2 [facility] 22:09:00 [facility] Systolic blood 2022-03-29 120 mm[Hg] [facility] pressure 16:21:00 Diastolic blood 2022-03-29 87 mm[Hg] [facility] h pressure 16:21:00 Heart rate 2022-03-29 98 /min [facility] 16:21:00 Body temperature 2022-03-29 36.28 Sarah Beth [facility] 16:21:00 Respiratory rate 2022-03-29 17 /min [facility] 16:21:00 Oxygen saturation 2022-03-29 99 /min [facility] Arterial blood 16:21:00 by Pulse oximetry Systolic blood 2022-03-10 105 mm[Hg] [facility] pressure 22:00:00 Diastolic blood 2022-03-10 76 mm[Hg] [facility] pressure 22:00:00 Heart rate 2022-03-10 64 /min [facility] 22:00:00 Respiratory rate 2022-03-10 18 /min [facility] 22:00:00 Oxygen saturation 2022-03-10 99 /min [facility] 22:[facility]:00 by Pulse oximetry Body temperature 2022-03-10 36.67 Sarah Beth formerly [facility] 19:29:00 Body height 2022-03-10 175.3 cm [facility] 05:39:00 Body weight 2022-03-10 58.968 kg [facility] 05:39:00 BMI 2022-03-10 19.20 kg/m2 [facility] 05:39:00 Systolic blood 2022-03-09 120 mm[Hg] [facility] pressure 22:42:22 [facility] Diastolic blood 2022-03-09 79 mm[Hg] [facility] pressure 22:42:22 [facility] Heart rate 2022-03-09 73 /min [facility] 22:42:22 [facility] Body temperature 2022-03-09 36.89 Sarah Beth [facility] 22:42:22 [facility] Respiratory rate 2022-03-09 20 /min [facility] 22:42:22 Hospital Oxygen saturation 2022-03-09 96 /min [facility] in Arterial blood 22:42:22 [facility] by Pulse oximetry Body height 2022-03-09 172.7 cm [facility] 22:40:00 Hospital Body weight 2022-03-09 62.596 kg [facility] 22:40:00 [facility] BMI 2022-03-09 20.98 kg/m2 [facility] 22:40:00 [facility] Systolic blood 2022-02-04 108 mm[Hg] [facility] pressure 23:16:00 Diastolic blood 2022-02-04 71 mm[Hg] [facility] pressure 23:16:00 Heart rate 2022-02-04 59 /min Notify RN Jazmine [facility] 23:16:00 Body temperature 2022-02-04 36.56 Sarah Beth formerly [facility] 23:16:00 Respiratory rate 2022-02-04 19 /min [facility] 23:16:00 Oxygen saturation 2022-02-04 100 /min [facility] in Arterial blood 23:16:00 by Pulse oximetry Body height 2022-02-04 175.3 cm [facility] 09:28:00 Body weight 2022-02-04 65.8 kg [facility] 09:28:00 BMI 2022-02-04 21.42 kg/m2 [facility] 09:28:00 Systolic blood 2022-01-13 122 mm[Hg] [facility] pressure 02:14:00 [facility] Diastolic blood 2022-01-13 84 mm[Hg] [facility] pressure 02:14:00 [facility] Heart rate 2022-01-13 79 /min [facility] 02:14:00 [facility] Body temperature 2022-01-13 36.56 Sarah Beth [facility] 02:14:00 Hospital Respiratory rate 2022-01-13 16 /min [facility] 02:14:00 Hospital Oxygen saturation 2022-01-13 95 /min [facility] in Arterial blood 02:14:00 Hospital by Pulse oximetry Systolic (mm Hg) 2019-12-15 [facility] rmann 06:24:00 Diastolic (mm Hg) 2019-12-15 [facility] ermann 06:24:00 Respitory Rate 2019-12-15 [facility] boaz 06:24:00 Temperature Oral 2019-12-15 99 F [facility] rmann (F) 06:24:00 Respitory Rate 2019-12-15 [facility] boaz 06:03:00 Respitory Rate 2019-12-15 [facility] boaz 04:44:00 Systolic (mm Hg) 2019-12-15 [facility] [...] 11:55:00 Temperature Oral 2018-04-18 98.2 F [facility] (F) 11:55:00 Heart Rate 2018-04-18 [facility] [...] [facility] boaz 20:21:00 Heart Rate 2012-12-30 [facility]iazzi n 20:21:00 Temperature Oral 2012-12-30 97.5 F [facility] (F) 20:21:00 Heart Rate 2012-12-30 [facility] Abdiaziz n 16:18:00 Temperature Oral 2012-12-30 97 F Jennifer Quintanilla rmann (F) 16:18:00 Respitory Rate 2012-12-30 Jennifer Jenkins boaz 16:18:00 Diastolic (mm Hg) 2012-12-30 Jennifer Jaramillo ermann 16:18:00 Systolic (mm Hg) 2012-12-30 Jennifer Quintanilla rmann 16:18:00 Height 2012-12-29 175.26 cm Jennifer Freed n 02:00:00 Weight 2012-12-29 Jennifer Freed n 02:00:00 Procedures Procedure Date / Time Performing Clinician Source Performed RESPIRATORY PATHOGEN 2022-04-27 23:32:00 [facility] PANEL WITH COVID-19 [facility] RT-PCR INFLUENZA ANTIGEN 2022-04-27 23:32:00 [facility] GROUP A STREP, RAPID 2022-04-27 23:32:00 [facility] ANTIGEN [facility] STREP SCREEN CULTURE 2022-04-27 23:32:00 [facility] XR NECK SOFT TISSUE 2022-04-27 23:09:45 [facility] XR CHEST 2 VW 2022-04-27 23:09:20 [facility] Ho spital [facility] VALPROIC ACID 2022-03-14 06:16:00 [facility] COMPREHENSIVE METABOLIC 2022-03-13 07:33:00 [facility] PANEL LIPID PROFILE 2022-03-13 07:33:00 [facility] HEMOGLOBIN A1C 2022-03-13 07:33:00 [facility] SYPHILIS MONITOR FOR 2022-03-13 07:33:00 [facility] TREATMENT THYROID STIMULATING 2022-03-13 07:33:00 [facility] HORMONE (TSH) HIV AG/AB COMBO ROUTINE 2022-03-13 07:33:00 [facility] SCREENING BMP POC 2022-03-10 11:48:00 Emre Acuna [facility] CREATININE POC 2022-03-10 11:47:00 Emre Acuna [facility] SARS-COV-2, FLU A/B, RSV 2022-03-10 11:35:00 [facility] CORONAVIRUS, COVID-19, 2022-03-10 11:35:00 [facility] PORTIA CBC WITH PLATELET AND 2022-03-09 23:22:00 [facility] DIFFERENTIAL BASIC METABOLIC PANEL 2022-03-09 23:22:00 [facility] ACETAMINOPHEN LEVEL 2022-03-09 23:22:00 [facility] SALICYLATE LEVEL 2022-03-09 23:22:00 [facility] ESTIMATED GFR 2022-03-09 23:22:00 [facility] XRAY CHEST 1 VIEW - TB 2022-03-05 05:15:[address] [facility] SCREEN (AFFLIATE) SARS-COV-2 PCR RAPID TEST 2022-03-05 00:00:00 Provider, [facility] Med POC GLUCOSE-AFFILIATE 2022-03-05 00:00:00 Provider, [facility] MANUALLY ENTERED Med POC GLUCOSE-AFFILIATE 2022-02-28 00:00:00 Provider, [facility] MANUALLY ENTERED Med CONSULT CLINICAL CASE 2022-02-04 12:29:21 [facility] MANAGEMENT (RN/SW) XRAY FOOT 3 VIEWS MIN 2022-02-04 10:59:00 [facility] XRAY ANKLE 3 VIEW MIN 2022-02-04 10:59:00 [facility] URINE CULTURE 2022-01-13 05:32:00 Rehrer, [facility] URINE DRUGS OF ABUSE 2022-01-13 05:32:00 [facility] AND 2022-01-13 05:32:00 [facility] MICROSCOPY, WITH REFLEX TO CULTURE COVID-19 QUALITATIVE 2022-01-13 03:52:00 Rehrer, [facility] RT-PCR COVID-19 OMICRON VARIANT 2022-01-13 03:52:00 Rehrer, [facility] QUALITATIVE RT-PCR CBC WITH PLATELET AND 2022-01-13 03:52:00 Rehrer, [facility] DIFFERENTIAL COMPREHENSIVE METABOLIC 2022-01-13 03:52:00 Rehrer, [facility] PANEL THYROID STIMULATING 2022-01-13 03:52:00 Rehrer, [facility] HORMONE T4, FREE 2022-01-13 03:52:00 Rehrer, [facility] ALCOHOL LEVEL, BLOOD 2022-01-13 03:52:00 Rehrer, [facility] ACETAMINOPHEN LEVEL 2022-01-13 03:52:00 Rehrer, [facility] SALICYLATE LEVEL 2022-01-13 03:52:00 Rehrer, [facility] ESTIMATED GFR 2022-01-13 03:52:00 Rehrer, [facility] ECG ED PRELIMINARY 2022-01-13 02:35:02 Rehrer, [facility] INTERPRETATION CONSULT CLINICAL CASE 2022-01-12 20:09:34 [facility] MANAGEMENT (RN/SW) ACETAMINOPHEN 2022-01-12 12:37:00 Inocencia Lozano [facility] 12 LEAD EKG 2022-01-12 11:30:22 Inocencia Lozano formerly [facility] CONSENT/REFUSAL FOR 2021-05-30 08:08:34 Doctor Unassigned, [facility] DIAGNOSIS AND TREATMENT [facility] Plan of Care Planned Activity Planned Date Details Comments Source Future Scheduled 2022-06-07 COVID-19 VACCINE (#1) [facility] Test 13:13:57 [code = COVID-19 VACCINE (#1)] Future Scheduled 2022-06-07 Pneumococcal Vaccine: [facility] Test 13:13:57 Pediatrics (0 to 5 Years) and At-Risk Patients (6 to 64 Years) (1 - PCV) [code = Pneumococcal Vaccine: Pediatrics (0 to 5 Years) and At-Risk Patients (6 to 64 Years) (1 - PCV)] Future Scheduled 2022-06-07 Hepatitis C screening [facility] Test 13:13:57 (procedure) [code = 287406884] Future Scheduled 2022-06-07 INFLUENZA VACCINE Method [facility] Test 13:13:57 [code = INFLUENZA VACCINE] Future Scheduled 2022-04-29 COVID-19 VACCINE (#1) [facility] Test 14:17:11 [code = COVID-19 VACCINE (#1)] Future Scheduled 2022-04-29 Pneumococcal Vaccine: [facility] Test 14:17:11 Pediatrics (0 to 5 Years) and At-Risk Patients (6 to 64 Years) (1 - PCV) [code = Pneumococcal Vaccine: Pediatrics (0 to 5 Years) and At-Risk Patients (6 to 64 Years) (1 - PCV)] Future Scheduled 2022-04-29 Hepatitis C screening [facility] Test 14:17:11 (procedure) [code = 928643167] Future Scheduled 2022-04-29 INFLUENZA VACCINE Method [facility] Test 14:17:11 [code = INFLUENZA VACCINE] Future Scheduled 2022-04-14 COVID-19 VACCINE (#1) [facility] Test 22:41:37 [code = COVID-19 VACCINE (#1)] Future Scheduled 2022-04-14 Pneumococcal Vaccine: [facility] Test 22:41:37 Pediatrics (0 to 5 Years) and At-Risk Patients (6 to 64 Years) (1 - PCV) [code = Pneumococcal Vaccine: Pediatrics (0 to 5 Years) and At-Risk Patients (6 to 64 Years) (1 - PCV)] Future Scheduled 2022-04-14 Hepatitis C screening [facility] Test 22:41:37 (procedure) [code = 235892243] Future Scheduled 2022-04-14 INFLUENZA VACCINE Method [facility] Test 22:41:37 [code = INFLUENZA VACCINE] Future Scheduled 2022-03-09 HEPATITIS B VACCINES Met [facility] Test 19:41:41 (1 of 3 - 3-dose series) [code = HEPATITIS B VACCINES (1 of 3 - 3-dose series)] Future Scheduled 2022-03-09 COVID-19 VACCINE (#1) [facility] Test 19:41:41 [code = COVID-19 VACCINE (#1)] Future Scheduled 2022-03-09 Pneumococcal Vaccine: [facility] Test 19:41:41 Pediatrics (0 to 5 Years) and At-Risk Patients (6 to 64 Years) (1 - PCV) [code = Pneumococcal Vaccine: Pediatrics (0 to 5 Years) and At-Risk Patients (6 to 64 Years) (1 - PCV)] Future Scheduled 2022-03-09 Hepatitis C screening [facility] Test 19:41:41 (procedure) [code = [id number]] Future Scheduled 2022-03-09 INFLUENZA VACCINE Method [facility] yrs)] Future Scheduled 2022-01-13 HEPATITIS B VACCINES [facility] Test 01:43:47 (1 of 3 - 3-dose series) [code = HEPATITIS B VACCINES (1 of 3 - 3-dose series)] Future Scheduled 2022-01-13 COVID-19 VACCINE (#1) [facility] Test 01:43:47 [code = COVID-19 VACCINE (#1)] Future Scheduled 2022-01-13 Pneumococcal Vaccine: [facility] Test 01:43:47 Pediatrics (0 to 5 Years) and At-Risk Patients (6 to 64 Years) (1 - PCV) [code = Pneumococcal Vaccine: Pediatrics (0 to 5 Years) and At-Risk Patients (6 to 64 Years) (1 - PCV)] Future Scheduled 2022-01-13 Hepatitis C screening [facility] Test 01:43:47 (procedure) [code = 125813348] Future Scheduled 2022-01-13 INFLUENZA VACCINE Method [facility] Test 01:43:47 [code = INFLUENZA VACCINE] Future Scheduled 2022-01-13 HEPATITIS B VACCINES [facility] Test 01:43:47 (1 of 3 - 3-dose series) [code = HEPATITIS B VACCINES (1 of 3 - 3-dose series)] Future Scheduled 2022-01-13 COVID-19 VACCINE (#1) [facility] Test 01:43:47 [code = COVID-19 VACCINE (#1)] Future Scheduled 2022-01-13 Pneumococcal Vaccine: [facility] Test 01:43:47 Pediatrics (0 to 5 Years) and At-Risk Patients (6 to 64 Years) (1 - PCV) [code = Pneumococcal Vaccine: Pediatrics (0 to 5 Years) and At-Risk Patients (6 to 64 Years) (1 - PCV)] Future Scheduled 2022-01-13 Hepatitis C screening [facility] Test 01:43:47 (procedure) [code = 892226503] Future Scheduled 2022-01-13 INFLUENZA VACCINE Method [facility] Test 01:43:47 [code = INFLUENZA VACCINE] Future [...] Clinicians Facility Department ID 2022-04-27 2022-04-27 Emergency Karl, 1.2.840.1 [id number] Methodi 16:41:00 19:24:00 Lisbeth 77489.1.1 551 [facility] 3.430.2.7 Hospit a .3.454488 l .8 2022-04-27 2022-04-27 Emergency Karl, 1.2.840.1 [id number] Methodi 16:41:00 19:24:[address] [facility] 3.430.2.7 Hospit a .3.461533 l .8 2022-03-30 2022-03-30 Outpatient YANG, [facility] [id number] [place] 00:00:00 00:00:00 [facility] 2022-03-10 2022-03-14 Hospital 2 [place], [facility] [id number] [place] 22:17:00 15:10:00 Encounter Wilber Scales 2022-03-10 2022-03-14 Hospital [place], [facility] [id number] [place] 22:17:00 15:10:00 Encounter Wilber Scales 2022-03-10 2022-03-10 Emergency Emre Acuna [facility] [id number] [place] 06:16:00 22:11:00 [facility] 2022-03-10 2022-03-10 Emergency 1 Santiago Acunairis [facility] [id number] [place] 06:16:00 22:11:00 [facility] 2022-03-09 2022-03-09 Emergency Yang, 1.2.840.1 [id number] Methodi 16:47:00 20:21:[address] [facility] 3.430.2.7 Ho spita .3.796194 l .8 2022-03-09 2022-03-09 Emergency Yang, 1.2.840.1 [id number] [id number] Methodi 16:47:00 20:21:[address] [facility] 3.430.2.7 Ho spita .3.437420 l .8 2022-02-24 2022-02-24 Outpatient [facility] [id number] [place] 00:00:00 00:00:00 [facility] 2022-02-04 2022-02-05 Emergency [facility] [id number] [place] 23:51:00 00:17:00 Thomas Kelly [facility] 2022-02-04 2022-02-05 Emergency [facility] [id number] [place] 23:51:00 00:17:00 Robin [facility] 2022-02-04 2022-02-04 Emergency [facility] [id number] [address] [place] [address] 10:18:51 10:59:41 [facility] 2022-01-12 2022-01-13 Emergency Rehrer, 1.2.840.1 [id number] Methodi 21:16:00 06:04:00 Dio Jack [address]68.1.[address] 3.430.2.7 Hospit a .3.628512 l .8 2022-01-12 2022-01-13 Emergency Rehrer, 1.2.840.1 [id number] [id number] Methodi 21:16:00 06:04:[address] 3.430.2.7 Hospit a .3.376989 l .8 2022-01-12 2022-01-12 [facility] [id number] [place] 20:08:00 22:12:00 Cely R Healt 2022-01-12 2022-01-12 [facility] [id number] [place] 20:08:00 22:12:00 Cely R Healt 2022-01-12 2022-01-12 Travel 1.2.840.1 1.2.002.258 [id number] Methodi 00:00:00 00:00:[address] 3.430.2.7 0.2.7.3.698 Ho spita .3.197949 084.8 l .8 2022-01-12 2022-01-12 Travel 1.2.840.1 1.2.520.974 [id number] [id number] Methodi 00:00:00 00:00:[address] 3.430.2.7 0.2.7.3.698 Ho spita .3.280289 084.8 l .8 2021-12-30 2021-12-30 Emergency Emergency Afuwape, [facility] [id number] [facility] 00:14:00 00:14:00 Esteekuman 92 2021-12-30 2021-12-30 Emergency [facility] [id number] [facility] 00:14:00 00:14:00 92 2021-12-29 2021-12-29 Emergency 1.2.840.1 [id number] Methodi 00:27:00 01:06:[address] 3.430.2.7 Hospit a .3.665378 l .8 2021-12-29 2021-12-29 Emergency 1.2.840.1 [id number] Methodi 00:27:00 01:06:[address] 3.430.2.7 Hospit a .3.900835 l .8 2021-12-29 2021-12-29 Travel 1.2.840.1 1.2.668.387 5599 [id number] Methodi 00:00:00 00:00:[address] 3.430.2.7 0.2.7.3.698 Ho spita .3.359406 084.8 l .8 2021-12-29 2021-12-29 Travel 1.2.840.1 1.2.080.143 5095 [id number] Methodi 00:00:00 00:00:[address] 3.430.2.7 0.2.7.3.698 Ho spita .3.448491 084.8 l .8 2021-05-30 2021-05-30 Emergency Celesteoh [facility] 1.2.036.915 [id number] [facility] 02:35:00 02:50:00 [place] CHANEY 350.1.13.10 ity [facility] 4.2.7.2.686 [facility] [id number] [facility] 084 Branch 2021-05-30 2021-05-30 Emergency X YARIMA, [facility] ERT [id number] Univers 02:35:00 02:50:00 WAKILI ity of [facility] 2021-05-30 2021-05-30 Orders Doctor MERINO 1.2.840.114 [id number] Univers 00:00:00 00:00:00 Only Unassigned, ARAMIS 350.1.13.10 ity of [place] [facility] 4.2.7.2.686 Ward as [phone] [place] [address] Branch 2021-05-30 2021-05-30 Letter WILBER Harris 1.2.915.443 [id number] Univers 00:00:00 00:00:00 (Out) Roshan ARAMIS 350.1.13.10 it y of [facility] 4.2.7.2.686 Ward as [phone] [place] [address] Branch 2019-12-15 2019-12-15 [facility] [id number] Memoria 04:20:04 08:22:00 swapnil Massey [address] [place] [address] 2019-12-15 2019-12-15 [facility] [id number] Memoria 04:20:04 08:22:00 swapnil Massey [address] [place] [address] 2019-12-14 2019-12-15 Outpatient Carmen [facility] [id number] 23:20:04 03:22:00 Elio Sweeney [facility] 2019-12-14 2019-12-15 [facility] [id number] Memoria 23:20:00 03:22:00 ELIO Schneider [facility] 2018-04-18 2018-04-18 [facility] [id number] Memoria 11:54:00 16:31:00 swapnil Massey [address] [place] [address] 2018-04-18 2018-04-18 [facility] [id number] Memoria 11:54:00 16:31:00 swapnil Bryson [address] [place] [address] 2018-04-18 2018-04-18 Outpatient Shawna [facility] [id number] 05:54:00 10:31:00 Sb Echeverria 2018-04-12 2018-04-14 [facility] [id number] Memoria 21:46:00 21:30:00 r Bryson 06 [facility] 2018-04-12 2018-04-14 Inpatient [facility] [id number] Memoria 21:46:00 21:30:00 r Bryson 06 l [facility] 2018-04-12 2018-04-14 Outpatient Mena [facility] [id number] 15:46:00 15:30:00 Eddie Rodriguez 2016-05-01 2016-05-01 [facility] [id number] Memoria 01:27:00 07:00:00 r Bryson [facility] 2016-05-01 2016-05-01 [facility] [id number] Memoria 01:27:00 07:00:00 swapnil Massey [address] [place] [address] 2016-04-30 2016-05-01 Outpatient Sherley [place] [id number] 19:27:00 01:00:00 Hiram Delgado 2016-04-30 2016-04-30 [facility] [id number] Memoria 10:30:00 13:04:00 r Bryson [facility] 2016-04-30 2016-04-30 [facility] [id number] Memoria 10:30:00 13:04:00 swapnil [facility] 2016-04-30 2016-04-30 Outpatient Heide [place] [id number] 04:30:00 07:04:00 Santana 2016-04-07 2016-04-07 [facility] [id number] Memoria 01:26:00 16:46:00 r Bryson [facility] 2016-04-07 2016-04-07 [facility] [id number] Memoria 01:26:00 16:46:00 r Bryson [facility] 2016-04-06 2016-04-07 Outpatient Constantino [facility] [id number] 19:26:00 10:46:00 Mirta andre 2016-01-14 2016-01-14 [facility] [id number] Memoria 02:11:00 08:00:00 r [place] [facility] 2016-01-14 2016-01-14 Emergency nullFlavo [facility] [id number] Memoria 02:11:00 08:00:00 r [place] [facility] 2016-01-13 2016-01-14 Outpatient Jacob [facility] [id number] 21:11:00 03:00:00 Noemi Shi 2012-12-29 2012-12-30 Inpatient nullFlavo [facility] [id number] Memoria 04:32:00 21:30:00 r Medical [facility] 2012-12-29 2012-12-30 Inpatient nullFlavo [facility] [id number] Memoria 04:32:00 21:30:00 r Medical [facility] Results Test Description Test Time Test Comments Results Result Comments Source Strep screen culture 2022-04-30 07:18:00 Test Item Value Reference Range Interpretation Comme nts Strep screen culture No beta hemolytic Sp ecimen InformationSpecimen isolate (test code = Streptococci isolated Source: ThroatSpecimen Site: Not 547-0) otherwise speci fied [facility] [id number] 07:18:00 Test Item Value Reference Range Interpretation Comments Strep screen No beta hemolytic Specimen culture Streptococci InformationSpec imen isolate (test isolated Source: Throat Specimen code = 547-0) Site: Not othe rwise specified [facility] [id number] 09:23:21 Test Item Value Reference Range Interpretation Comments RPR Ser Ql (test code = 08141-7) NON-REACTIVE Non-reactive HHSHIV 1+2 Ab+HIV1 p24 Ag SerPl Ql [id number] 08:57:46 Test Item Value Reference Range Interpretation Comments HIV 1+2 Ab+HIV1 p24 Ag SerPl Ql [place] NEGATIVE Negative (test code = 92864-7) HHSCoronavirus, CoVID-19, [id number] 13:03:17 Test Item Value Reference Interpretation Comments Range COVID-19 Not Detected Not Detected INTERPRETATION: (SARS-COV-2) (test No detect able code = 56749-3) levels of SARS-CoV-2 Coronavirus (COVID-19) were present [...] its performance characteristics were verified by the [facility] molecular diagnostics laboratory and is authorized for clinical diagnostic use. This laboratory is certified under the Clinical Laboratory Improvement Amendments (CLIA) as qualified to perform high complexity clinical laboratory testing. Lab Interpretation Normal (test code = 47034-9) [facility]-19, [id number] 13:03:17 Test Item Value Reference Interpretation Comments Range COVID-19 Not Detected Not Detected INTERPRETATION: (SARS-COV-2) (test No detect able code = 90420-9) levels of SARS-CoV-2 Coronavirus (COVID-19) were present [...] its performance characteristics were verified by the [facility] molecular diagnostics laboratory and is authorized for clinical diagnostic use. This laboratory is certified under the Clinical Laboratory Improvement Amendments (CLIA) as qualified to perform high complexity clinical laboratory testing. Lab Interpretation Normal (test code = 36917-7) Christian Blasronavirus, CoVID-19, [id number] 13:03:17 Test Item Value Reference Interpretation Comments Range COVID-19 Not Detected Not Detected INTERPRETATION: (SARS-COV-2) (test No detect able code = 69236-8) levels of SARS-CoV-2 Coronavirus (COVID-19) were present [...] its performance characteristics were verified by the [facility] molecular diagnostics laboratory and is authorized for clinical diagnostic use. This laboratory is certified under the Clinical Laboratory Improvement Amendments (CLIA) as qualified to perform high complexity clinical laboratory testing. Lab Interpretation Normal (test code = 65914-7) Christian Blasronavirus, CoVID-19, [id number] 13:03:17 Test Item Value Reference Interpretation Comments Range COVID-19 Not Detected Not Detected INTERPRETATION: (SARS-COV-2) (test No detect able code = 93416-9) levels of SARS-CoV-2 Coronavirus (COVID-19) were present [...] its performance characteristics were verified by the [facility] molecular diagnostics laboratory and is authorized for clinical diagnostic use. This laboratory is certified under the Clinical Laboratory Improvement Amendments (CLIA) as qualified to perform high complexity clinical laboratory testing. Lab Interpretation Normal (test code = 66990-8) [facility]-CoV-2 RNA Resp Ql [id number] 13:03:17 Test Item Value Reference Range Interpretation Comments Hospitalized? (test No code = 39838-5) ICU? (test code = No 59656-2) Symptomatic as defined No by CDC? (test code = 84369-8) Employed in No Healthcare? (test code = 58423-4) Resident in a Yes congregate care setting (including nursing homes, residential care for people with intellectual and developmental disabilities, psychiatric treatment facilities, group homes, board and care homes, homeless care home, foster care or other): (test code = 57358-6) SARS-CoV-2 RNA Resp Ql NOT DETECTED Not Detected INTER PRETATION: No PORTIA+probe (test code = detec table levels 08154-6) of SARS-CoV-2 Coronavirus (COVID-19) were present in [...] its performance characteristics were verified by the [facility] molecular diagnostics laboratory and is authorized for clinical diagnostic use. This laboratory is certified under the Clinical Laboratory Improvement Amendments (CLIA) as qualified to perform high complexity clinical laboratory testing.[facility] CREATININE POC docked [id number] 11:49:51 Test Item Value Reference Range Interpretation Comments Creatinine POC (test 1.0 mg/dL 0.6-1.3 Physici an Notified code = 24232434) eGFR If non- Am 98 See_Comment [Aut omated message] (test code = 52844400) The s ystem which generated this result transmit abdelrahman reference range : >=90 mL/min/1.7 3 m2. The reference r annemarie was not used to interpret this result as normal/abnormal . eGFR If Am (test 114 See_Comment [A utomated message] code = 45962603) The system which generated this result transmit abdelrahman reference range : >=90 mL/min/1.7 3 m2. The reference r annemarie was not used to interpret this result as normal/abnormal . Lab Interpretation (test Normal code = 76612-3) [facility] BMP POC docked [id number] 11:49:51 Test Item Value Reference Range Interpretation Comments Sodium POC (test code = 140 mmol/L 136-145 98461346) Potassium POC (test code 4.0 mmol/L 3.5-5.1 = 74701807) Chloride POC (test code 104 mmol/L 98-107 = 31788862) TCO2 POC (test code = 28 mmol/L 21-32 Physic shea Notified 43661078) Urea Nitrogen POC (test 19 mg/dL 7-18 H code = 36201534) Glucose POC (test code = 79 mg/dL 74-106 33463450) Hemoglobin POC (test 13.9 g/dL 12-16 code = 12329752) Hematocrit POC (test 41.0 % 37.0-47.0 code = 36288380) Lab Interpretation (test Abnormal code = 97158-3) [facility] CREATININE POC docked [id number] 11:49:51 Test Item Value Reference Range Interpretation Comments Creatinine POC (test 1.0 mg/dL 0.6-1.3 Physici an Notified code = 94254898) eGFR If non- Am 98 See_Comment [Aut omated message] (test code = 47526209) The s ystem which generated this result transmit abdelrahman reference range : >=90 mL/min/1.7 3 m2. The reference r annemarie was not used to interpret this result as normal/abnormal . eGFR If Am (test 114 See_Comment [A utomated message] code = 80017322) The system which generated this result transmit abdelrahman reference range : >=90 mL/min/1.7 3 m2. The reference r annemarie was not used to interpret this result as normal/abnormal . Lab Interpretation (test Normal code = 47070-7) [facility] BMP POC docked [id number] 11:49:51 Test Item Value Reference Range Interpretation Comments Sodium POC (test code = 140 mmol/L 136-145 91390570) Potassium POC (test code 4.0 mmol/L 3.5-5.1 = 70539945) Chloride POC (test code 104 mmol/L 98-107 = 66436352) TCO2 POC (test code = 28 mmol/L 21-32 Physic shea Notified 49021665) Urea Nitrogen POC (test 19 mg/dL 7-18 H code = 63172815) Glucose POC (test code = 79 mg/dL 74-106 02969446) Hemoglobin POC (test 13.9 g/dL 12-16 code = 31639653) Hematocrit POC (test 41.0 % 37.0-47.0 code = 17918850) Lab Interpretation (test Abnormal code = 99825-0) [facility] CREATININE POC docked [id number] 11:49:51 Test Item Value Reference Range Interpretation Comments Creatinine POC (test 1.0 mg/dL 0.6-1.3 Physici an Notified code = 82717104) eGFR (test code = 98 See_Comment [Automate d message] 70483811) The system [employer] generated this result transmit abdelrahman reference range : >=90 mL/min/1.7 3 m2. The reference r annemarie was not used to interpret this result as normal/abnormal . eGFR If Am (test 114 See_Comment [A utomated message] code = 64765985) The system which generated this result transmit abdelrahman reference range : >=90 mL/min/1.7 3 m2. The reference r annemarie was not used to interpret this result as normal/abnormal . Lab Interpretation (test Normal code = 22962-6) [facility] BMP POC docked [id number] 11:49:51 Test Item Value Reference Range Interpretation Comments Sodium POC (test code = 140 mmol/L 136-145 20887182) Potassium POC (test code 4.0 mmol/L 3.5-5.1 = 50419587) Chloride POC (test code 104 mmol/L 98-107 = 85043500) TCO2 POC (test code = 28 mmol/L 21-32 Physic shea Notified 85918757) Urea Nitrogen POC (test 19 mg/dL 7-18 H code = 26229250) Glucose POC (test code = 79 mg/dL 74-106 05019043) Hemoglobin POC (test 13.9 g/dL 12-16 code = 29612217) Hematocrit POC (test 41.0 % 37.0-47.0 code = 31918682) Lab Interpretation (test Abnormal code = 06870-1) [facility] CREATININE POC docked [id number] 11:49:51 Test Item Value Reference Range Interpretation Comments Creatinine POC (test 1.0 mg/dL 0.6-1.3 Physici an Notified code = 51540810) eGFR (test code = 98 See_Comment [Automate d message] 71136447) The system [employer] generated this result transmit abdelrahman reference range : >=90 mL/min/1.7 3 m2. The reference r annemarie was not used to interpret this result as normal/abnormal . eGFR If Am (test 114 See_Comment [A utomated message] code = 78345625) The system which generated this result transmit abdelrahman reference range : >=90 mL/min/1.7 3 m2. The reference r annemarie was not used to interpret this result as normal/abnormal . Lab Interpretation (test Normal code = 20662-8) [facility] BMP POC docked [id number] 11:49:51 Test Item Value Reference Range Interpretation Comments Sodium POC (test code = 140 mmol/L 136-145 41493973) Potassium POC (test code 4.0 mmol/L 3.5-5.1 = 08775315) Chloride POC (test code 104 mmol/L 98-107 = 20006231) TCO2 POC (test code = 28 mmol/L 21-32 Physic shea Notified 14428265) Urea Nitrogen POC (test 19 mg/dL 7-18 H code = 87755936) Glucose POC (test code = 79 mg/dL 74-106 76738366) Hemoglobin POC (test 13.9 g/dL 12-16 code = 84057791) Hematocrit POC (test 41.0 % 37.0-47.0 code = 36489361) Lab Interpretation (test Abnormal code = 25580-0) [facility] inzlses8725-12-85 06:41:00 Test Item Value Reference Range Interpretation Comments Urine culture (test SEE COMMENT Bacteriu pilo screen code = 4153995) negative. [facility]2022-09-15 06:41:00 Test Item Value Reference Range Interpretation Comments Urine culture (test SEE COMMENT Bacteriu pilo screen code = 3293093) negative. [facility]2022-09-15 06:41:00 Test Item Value Reference Range Interpretation Comments Urine culture (test SEE COMMENT Bacteriu pilo screen code = 1044255) negative. [facility]2022-09-15 06:41:00 Test Item Value Reference Range Interpretation Comments Urine culture (test SEE COMMENT Bacteriu pilo screen code = 1462979) negative. [facility]2022-09-15 06:41:00 Test Item Value Reference Range Interpretation Comments Urine culture (test SEE COMMENT Bacteriu pilo screen code = 1638870) negative. [facility]2022-09-15 06:41:00 Test Item Value Reference Range Interpretation Comments Urine culture (test SEE COMMENT Bacteriu pilo screen code = 2284144) negative. [facility] ED Preliminary Interpretation - Not an Wmblb4952-04-01 02:35:02 Test Item Value Reference Range Interpretation Comments LISA (test code = LISA) Dio Boswell DO 01/16/2022 11:06 [facility] [place] Preliminary Interpretation - Not an OrderPerformed by: Dio Boswell, DOAuthorized by: Dio Boswell DO ECG reviewed by ED Physician in the absence of a anime designer: yes Previous ECG: Previous ECG: UnavailableInterpretat ion: Interpretation: abnormal Rate: ECG rate: 60 ECG rate assessment: normal Rhythm: Rhythm: sinus rhythm Ectopy: Ectopy: none QRS: QRS axis: Normal QRS intervals: NormalConduction: Conduction: abnormal Abnormal conduction: incomplete RBBB ST segments: ST segments: NormalT waves: T waves: normal Lab Interpretation Abnormal (test code = 26828-6) [facility] ED Preliminary Interpretation - Not an [id number] 02:35:02 Test Item Value Reference Range Interpretation Comments LISA (test code = LISA) Dio Boswell DO 01/16/2022 11:06 [facility] [place] Preliminary Interpretation - Not an OrderPerformed by: Dio Boswell, DOAuthorized by: Dio Boswell DO ECG reviewed by ED Physician in the absence of a anime designer: yes Previous ECG: Previous ECG: UnavailableInterpretat ion: Interpretation: abnormal Rate: ECG rate: 60 ECG rate assessment: normal Rhythm: Rhythm: sinus rhythm Ectopy: Ectopy: none QRS: QRS axis: Normal QRS intervals: NormalConduction: Conduction: abnormal Abnormal conduction: incomplete RBBB ST segments: ST segments: NormalT waves: T waves: normal Lab Interpretation Abnormal (test code = 07149-2) [facility] ED Preliminary Interpretation - Not an [id number] 02:35:02 Test Item Value Reference Range Interpretation Comments LISA (test code = LISA) Dio Boswell DO 01/16/2022 11:06 [facility] [place] Preliminary Interpretation - Not an OrderPerformed by: Dio Boswell DOAuthorized by: Dio Boswell DO ECG reviewed by ED Physician in the absence of a anime designer: yes Previous ECG: Previous ECG: UnavailableInterpretat ion: Interpretation: abnormal Rate: ECG rate: 60 ECG rate assessment: normal Rhythm: Rhythm: sinus rhythm Ectopy: Ectopy: none QRS: QRS axis: Normal QRS intervals: NormalConduction: Conduction: abnormal Abnormal conduction: incomplete RBBB ST segments: ST segments: NormalT waves: T waves: normal Lab Interpretation Abnormal (test code = 57674-3) [facility] ED Preliminary Interpretation - Not an [id number] 02:35:02 Test Item Value Reference Range Interpretation Comments LISA (test code = LISA) Dio Boswell DO 01/16/2022 11:06 [facility] [place] Preliminary Interpretation - Not an OrderPerformed by: Dio Boswell DOAuthorized by: Dio Boswell DO ECG reviewed by ED Physician in the absence of a anime designer: yes Previous ECG: Previous ECG: UnavailableInterpretat ion: Interpretation: abnormal Rate: ECG rate: 60 ECG rate assessment: normal Rhythm: Rhythm: sinus rhythm Ectopy: Ectopy: none QRS: QRS axis: Normal QRS intervals: NormalConduction: Conduction: abnormal Abnormal conduction: incomplete RBBB ST segments: ST segments: NormalT waves: T waves: normal Lab Interpretation Abnormal (test code = 33970-7) [facility] ED Preliminary Interpretation - Not an [id number] 02:35:02 Test Item Value Reference Range Interpretation Comments LISA (test code = LISA) Dio Boswell DO 01/16/2022 11:06 [facility] [place] Preliminary Interpretation - Not an OrderPerformed by: Dio Boswell DOAuthorized by: Dio Boswell DO ECG reviewed by ED Physician in the absence of a anime designer: yes Previous ECG: Previous ECG: UnavailableInterpretat ion: Interpretation: abnormal Rate: ECG rate: 60 ECG rate assessment: normal Rhythm: Rhythm: sinus rhythm Ectopy: Ectopy: none QRS: QRS axis: Normal QRS intervals: NormalConduction: Conduction: abnormal Abnormal conduction: incomplete RBBB ST segments: ST segments: NormalT waves: T waves: normal Lab Interpretation Abnormal (test code = 60766-0) [facility] ED Preliminary Interpretation - Not an [id number] 02:35:02 Test Item Value Reference Range Interpretation Comments LISA (test code = LISA) Dio Boswell DO 01/16/2022 11:06 [facility] [place] Preliminary Interpretation - Not an OrderPerformed by: Dio Boswell DOAuthorized by: Dio Boswell DO ECG reviewed by ED Physician in the absence of a anime designer: yes Previous ECG: Previous ECG: UnavailableInterpretat ion: Interpretation: abnormal Rate: ECG rate: 60 ECG rate assessment: normal Rhythm: Rhythm: sinus rhythm Ectopy: Ectopy: none QRS: QRS axis: Normal QRS intervals: NormalConduction: Conduction: abnormal Abnormal conduction: incomplete RBBB ST segments: ST segments: NormalT waves: T waves: normal Lab Interpretation Abnormal (test code = 89000-6) Demetrius SantosARS-CoV-2 (COVID-19) RNA [Presence] in Respiratory specimen by PORTIA with probe kupzcpzyv1566-24-15 00:36:01 Test Item Value Reference Range Interpretation Comments SARS-CoV-2 (COVID-19) RNA [Presence] Detected in Respiratory specimen by PORTIA with probe detection (test code = 71595-5) Whether patient is employed in a Unknown healthcare setting (test code = 52022-0) Whether the patient has symptoms Unknown related to condition of interest (test code = 31804-9) Whether the patient was hospitalized Unknown for condition of interest (test code = 32299-7) Whether the patient was admitted to Unknown intensive care unit (ICU) for condition of interest (test code = 64160-8) Whether patient resides in a Unknown congregate care setting (test code = 60826-2) status (test code = Unknown 02471-4) Date and time of symptom onset (test Unknown code = 29790-4) [facility]ON [facility] Lead [id number] 11:30:2212 LEAD EKG FOR [facility] Test Date: 6366-00-94Tsw Name: SABAS ABBOTT Department: 5520Patient ID: [id number] Room: Gender: M Bulk Mail Technician: [id number]: 1990 Requested By: INOCENCIA LOZANO Order Number: [id number] Reading MD: Ayush Saunders MeasurementsIntervals [place] Rate: 72 P: 67PR: 141 QRS: 70QRSD: 110 T: 29QT: 397 QTc: 422 Interpretive StatementsSINUS RHYTHMINCOMPLETE RIGHT BUNDLE BRANCH BLOCK [90+ ms QRS DURATION, TERMINAL R INV1/V2,40+ ms S IN I/aVL/V4/V5/V6]POSSIBLE LATERAL MYOCARDIAL INFARCTION , PROBABLY OLD [30 ms Q WAVE INI/aVL/V5/V6]Electronically Signed On 01-14-2022 12:12:05 CDT [place] [address] Lead [id number] 11:30:2212 LEAD EKG FOR [facility] Test Date: 6464-97-11Jas Name: SABAS [facility] Department: 5520Patient ID: [id number] Room: Gender: M Bulk Mail Technician: [id number]: 1990 Requested By: INOCENCIA LOZANO Order Number: [id number] Reading MD: Ayush Saunders MeasurementsIntervals [place] Rate:72 P: 67PR: 141 QRS: 70QRSD: 110 T: 29QT: 397 QTc: 422 Interpretive StatementsSINUS RHYTHMINCOMPLETE RIGHT BUNDLE BRANCH BLOCK [90+ ms QRS DURATION, TERMINAL R INV1/V2,40+ ms S IN I/aVL/V4/V5/V6]POSSIBLE LATERAL MYOCARDIAL INFARCTION , PROBABLY OLD [30 ms Q WAVE INI/aVL/V5/V6]Electronically Signed On01-14-2022 12:12:05 CDT by Ayush [facility]ilarThe Surgical Hospital at SouthwoodsInterwise Wxcvey36 Lead [id number] 11:30:2212 LEAD EKG FOR [facility] Test Date: 5769-50-96Ujr Name: SBAAS ABBOTT [facility] ent: 5520Patient ID: [id number] Room: Gender: M Bulk Mail Technician: [id number]: 1990 Requested By: INOCENCIA LOZANO Order Number: [id number] Reading MD: Ayush Saunders MeasurementsIntervals [place] Rate: 72 P: 67PR: 141 QRS: 70QRSD: 110 T: 29QT: 397 QTc: 422 Interpretive StatementsSINUS RHYTHMINCOMPLETE RIGHT BUNDLE BRANCH BLOCK [90+ ms QRS DURATION, TERMINAL R INV1/V2,40+ ms S IN I/aVL/V4/V5/V6]POSSIBLE LATERAL MYOCARDIAL INFARCTION , PROBABLY OLD [30 ms Q WAVE INI/aVL/V5/V6]Electronically Signed On01-14-2022 12:12:05 CDT by [facility] [id number] 11:30:2212 LEAD EKG FOR [facility] Test Date: 6096-21-30Wcy Name: [facility] Department: 5520Patient ID: [id number] Room: Gender: M Bulk Mail Technician: [id number]: 1990 Requested By: INOCENCIA LOZANO Order Number: [id number] Reading MD: Ayush Saunders MeasurementsIntervals [place] Rate: 72 P: 67PR: 141 QRS: 70QRSD: 110 T: 29QT: 397 QTc: 422 Interpretive StatementsSINUS RHYTHMINCOMPLETE RIGHT BUNDLE BRANCH BLOCK [90+ ms QRS DURATION, TERMINAL R INV1/V2,40+ ms S IN I/aVL/V4/V5/V6]POSSIBLE LATERAL MYOCARDIAL INFARCTION , PROBABLY OLD [30 ms Q WAVE INI/aVL/V5/V6]Electronically Signed On 01-14-2022 12:12:05 CDT [place] [address] Lead [id number] 11:30:2212 LEAD EKG FOR [facility] Test Date: 1384-41-26Sai Name: [facility] Department: 5520Patient ID: [id number] Room: Gender: M Bulk Mail Technician: [id number]: 1990 Requested By: INOCENCIA LOZANO Order Number: [id number] Reading MD: Ayush Saunders MeasurementsIntervals [place] Rate: 72 P: 67PR: 141 QRS: 70QRSD: 110 T: 29QT: 397 QTc: 422 Interpretive StatementsSINUS RHYTHMINCOMPLETE RIGHT BUNDLE BRANCH BLOCK [90+ ms QRS DURATION, TERMINAL R INV1/V2,40+ ms S IN I/aVL/V4/V5/V6]POSSIBLE LATERAL MYOCARDIAL INFARCTION , PROBABLY OLD [30 ms Q WAVE INI/aVL/V5/V6]Electronically SignedOn 01-14-2022 12:12:05 CDT by Ayush [facility]12 Lead [id number] 11:30:2212 LEAD EKG FOR [facility] Test Date: 6953-41-91Qvy Name: SABAS ABBOTT Department: 5520Patient ID: [id number] Room: Gender: M Bulk Mail Technician: [id number]: 1990 Requested By: INOCENCIA LOZANO Order Number: [id number] Reading MD: Ayush Saunders MeasurementsIntervals [place] Rate: 72 P: 67PR: 141 QRS: 70QRSD: 110 T: 29QT: 397 QTc: 422 Interpretive StatementsSINUS RHYTHMINCOMPLETE RIGHT BUNDLE BRANCH BLOCK [90+ ms QRS DURATION, TERMINAL R INV1/V2,40+ ms S IN I/aVL/V4/V5/V6]POSSIBLE LATERAL MYOCARDIAL INFARCTION , PROBABLY OLD [30 ms Q WAVE INI/aVL/V5/V6]Electronically Signed On 01-14-2022 12:12:05 CDT by Ayush [facility] HospitalCoronavirus PCR, COVID19 [id number] 00:45:00 Test Item Value Reference Range Interpretation Comments Coronavirus PCR, For use under Emergency COVID19 Rapid (test Use Authorization (EUA) code = SARSCOV2) only. Coronavirus PCR, Reference Range: COVID19 Rapid (test Negative code = NOCDAYZ27.1) SARS-CoV-2 PCR Result: Positive by RT-PCR A [...] = NRBCP) 0 % UA, Urinalysis Rflx Cult/Bfnld5670-21-09 00:45:00 Test Item Value Reference Range Interpretation Comments Color,Urine (test code = UCOL) Dark Yellow Yellow A Clarity,Urine (test code = Clear Clear UCLAR) Ph, Urine (test code = UPH) 5.0 5.0-9.0 N Specific [place],Urine (test >= 1.030 1.005-1.030 N code = [...] Negative mg/dL Negative code = ULEU) Urine Kohbtvwjvre7692-75-75 00:45:00 Test Item Value Reference Range Interpretation Comments RBC,Urine (test code = URBCUF) None Seen /HPF 0-2 WBC,Urine (test code = UWBCUF) 0-5 /HPF 0-5 Epithelial Cell,Urine (test None Seen /HPF 0-5 code = UECUF) Casts,Urine (test code = 0-5 /LPF None Seen UCASTUF) Bacteria,Urine (test code = None Seen /hpf None Seen UBACTUF) Manual Differential, [id number] 00:45:00 Test Item Value Reference Range Interpretation [...] code = Normal Morphology Normal RM) Drug Screen,Okfey5670-03-35 00:45:00 Test Item Value Reference Range Interpretation [...] Urine (test code = UPROP) Comprehensive Metabolic [id number] 00:45:00 Test Item Value Reference Range Interpretation [...] 44 U/L 46-116 L = ALP) Ethanol [id number] 00:45:00 Test Item Value Reference Range Interpretation Comments Ethanol (test code < 3 mg/dL The pharm acological = ETOH) response to blo od alcohol levels mayvary from individual to i ndividual. The fatal xiomara ntrationhas been reported t o be >400mg/dL. CHEM BIZGN2004-05-04 04:57:00 Test Item Value Reference Range Interpretation Comments Glucose Lvl (test code = Glucose Lvl) 141 70-99 [facility] TexasCHEM [id number] 04:57:00 Test Item Value Reference Range Interpretation Comments BUN (test code = BUN) 7 7-22 [place] 506580-08-16 04:57:00 Test Item Value Reference Range Interpretation Comments Creatinine Lvl (test code = Creatinine 1.10 0.50-1.40 Lvl) [facility]2020-08-16 04:57:00 Test Item Value Reference Range Interpretation Comments Sodium Lvl (test code = Sodium Lvl) 138 135-145 [place] 506580-08-16 04:57:00 Test Item Value Reference Range Interpretation Comments Potassium Lvl (test code = Potassium 3.1 3.5-5.1 Lvl) [facility]SynapCellUNC [facility] LENOIRCIPCS4950-48-91 04:57:00 Test Item Value Reference Range Interpretation Comments Chloride Lvl (test code = Chloride Lvl) 106 95-109 [place] 506580-08-16 04:57:00 Test Item Value Reference Range Interpretation Comments CO2 (test code = CO2) 27 24-32 [place] 506580-08-16 04:57:00 Test Item Value Reference Range Interpretation Comments Calcium Lvl (test code = Calcium Lvl) 8.9 8.5-10.5 [facility]2020-08-16 04:57:00 Test Item Value Reference Range Interpretation Comments Albumin Lvl (test code = Albumin Lvl) 4.2 3.5-5.0 [place] 506580-08-16 04:57:00 Test Item Value Reference Range Interpretation Comments AGAP (test code = AGAP) 8.1 10.0-20.0 [place] 506580-08-16 04:57:00 Test Item Value Reference Range Interpretation Comments B/C Ratio (test code = B/C Ratio) 6 1 6-25 [place] 506580-08-16 04:57:00 Test Item Value Reference Range Interpretation Comments eGFR (test code = eGFR) 89 [place] 506580-08-16 04:57:00 Test Item Value Reference Range Interpretation Comments Total Protein (test code = Total 7.6 6.4-8.4 Protein) [facility]2020-08-16 04:57:00 Test Item Value Reference Range Interpretation Comments ALT (test code = ALT) 23 See_Comment [Auto mated message] The system which ge nerated this result transmit abdelrahman reference range : <=65. The reference range was not used to interpr et this result as gurpreet l/abnormal. [facility] [employer] [id number] 04:57:00 Test Item Value Reference Range Interpretation Comments AST (test code = AST) 16 See_Comment [Auto mated message] The system which ge nerated this result transmit abdelrahman reference range : <=37. The reference range was not used to interpr et this result as gurpreet l/abnormal. [facility] [employer] [id number] 04:57:00 Test Item Value Reference Range Interpretation Comments Alk Phos (test code = Alk Phos) 38 39-136 [facility] [id number] 04:57:00 Test Item Value Reference Range Interpretation Comments Bili Total (test code = Bili Total) 0.3 0.2-1.3 [facility] [employer] [id number] 04:57:00 Test Item Value Reference Range Interpretation Comments Globulin (test code = Globulin) 3.4 2.7-4.2 [facility] [employer] [id number] 04:57:00 Test Item Value Reference Range Interpretation Comments A/G Ratio (test code = A/G Ratio) 1.2 1 0.7-1.6 [facility] HospitalVnhmpckWZZTQDJSFD3236-35-59 04:57:00 Test Item Value Reference Range Interpretation Comments WBC (test code = WBC) 9.2 3.7-10.4 [facility] HospitalLlkcstnHVGNLTKDJF5681-31-60 04:57:00 Test Item Value Reference Range Interpretation Comments RBC (test code = RBC) 4.56 4.70-6.10 [facility] HospitalYrgnlseZPHVLUWTPM3850-09-01 04:57:00 Test Item Value Reference Range Interpretation Comments Hgb (test code = Hgb) 13.3 14.0-18.0 [facility] HospitalDpcoycvUGFTNMZGKV1113-80-44 04:57:00 Test Item Value Reference Range Interpretation Comments Hct (test code = Hct) 39.7 42.0-54.0 [facility] TexasPnvqcxgMQAQOGRFNP5972-69-61 04:57:00 Test Item Value Reference Range Interpretation Comments MCV (test code = MCV) 87.0 80.0-94.0 [facility] HospitalSrtanmkLOOOBESNEU8983-84-29 04:57:00 Test Item Value Reference Range Interpretation Comments MCH (test code = MCH) 29.2 pg 27.0-31.0 [facility]ressNfvjwlkRVSKYSZAZG2890-20-90 04:57:00 Test Item Value Reference Range Interpretation Comments MCHC (test code = MCHC) 33.6 32.0-36.0 [facility] CypressAyuqedxLKUEAFHXLO9615-97-22 04:57:00 Test Item Value Reference Range Interpretation Comments RDW (test code = RDW) 13.1 11.5-14.5 [facility] CypressVcmvqnrGLLQNBADGF5799-04-84 04:57:00 Test Item Value Reference Range Interpretation Comments Platelet (test code = Platelet) 162 133-450 [facility] CypressOazrorpABALRLMQXJ7291-03-01 04:57:00 Test Item Value Reference Range Interpretation Comments MPV (test code = MPV) 9.8 7.4-10.4 [facility] CypressPvaygvoUNABIEIBKU9557-60-12 04:57:00 Test Item Value Reference Range Interpretation Comments Segs (test code = Segs) 79.0 45.0-75.0 [facility] CypressKgukbalUHNCJJOIZC0756-28-44 04:57:00 Test Item Value Reference Range Interpretation Comments Lymphocytes (test code = Lymphocytes) 13.7 20.0-40.0 [facility] CypressQrtsdygTRFKKHFRRM4793-21-47 04:57:00 Test Item Value Reference Range Interpretation Comments Monocytes (test code = Monocytes) 6.5 2.0-12.0 [facility] CypressAeirfozMLPIOAGGMQ7593-23-71 04:57:00 Test Item Value Reference Range Interpretation Comments Eosinophils (test code = 0.5 See_Comment [A utomated message] The Eosinophils) system which ge nerated this result tra nsmitted reference range : <=4.0. The reference r annemarie was not used to int erpret this result as normal/abnormal . [facility] CypressNgnvjmwBWIIOJQCTW2832-24-69 04:57:00 Test Item Value Reference Range Interpretation Comments Basophils (test code = 0.3 See_Comment [Aut omated message] The Basophils) system which ge nerated this result tra nsmitted reference range : <=1.0. The reference r annemarie was not used to int erpret this result as normal/abnormal . [place] 745080-08-16 04:57:00 Test Item Value Reference Range Interpretation Comments Neutrophils # (test code = Neutrophils 7.3 1.5-8.1 #) [facility] TexasQprhaqfRWFQQOWWXM8279-21-24 04:57:00 Test Item Value Reference Range Interpretation Comments Lymphocytes # (test code = Lymphocytes 1.3 1.0-5.5 #) [facility] CypressOoqinzvDTWQMVYAFS7671-04-95 04:57:00 Test Item Value Reference Range Interpretation Comments Monocytes # (test code 0.6 See_Comment [Aut omated message] The = Monocytes #) system which generated this result tra nsmitted reference range : <=0.8. The reference r annemarie was not used to int erpret this result as normal/abnormal . [facility] HospitalJpwxhwrBAFMFMQDXZ6362-58-47 04:57:00 Test Item Value Reference Range Interpretation Comments Ethanol Lvl (test code = Ethanol Lvl) no gt [facility] HospitalBueuhzwTCSERYKBLE1291-45-12 04:57:00 Test Item Value Reference Range Interpretation Comments Etoh (%) (test code = Etoh (%)) no gt [facility] HospitalVhaeisrXVPPMORWDR0674-87-26 04:57:00 Test Item Value Reference Range Interpretation Comments Acetaminoph Lvl (test code (12/14/19 11:57 PM) 10-20 = Acetaminoph Lvl) [facility] TexasLshpkblMUMNQHCGMS6883-32-79 04:57:00 Test Item Value Reference Range Interpretation Comments Salicylate Lvl (test 3.4 See_Comment [Autom ated message] The code = Salicylate Lvl) syste m which generated this result tra nsmitted reference range : <=30.0. The reference r annemarie was not used to int erpret this result as normal/abnormal . [facility] [employer]2020-08-16 04:57:00 Test Item Value Reference Range Interpretation Comments Glucose Lvl (test code = Glucose Lvl) 141 70-99 [facility] [employer] ZCOOT0824-30-17 04:57:00 Test Item Value Reference Range Interpretation Comments BUN (test code = BUN) 7 7-22 [facility] [employer] [id number] 04:57:00 Test Item Value Reference Range Interpretation Comments Creatinine Lvl (test code = Creatinine 1.10 0.50-1.40 Lvl) [facility] [employer]2020-08-16 04:57:00 Test Item Value Reference Range Interpretation Comments Sodium Lvl (test code = Sodium Lvl) 138 135-145 [place] [address]-08-16 04:57:00 Test Item Value Reference Range Interpretation Comments Potassium Lvl (test code = Potassium 3.1 3.5-5.1 Lvl) [place] [address]-08-16 04:57:00 Test Item Value Reference Range Interpretation Comments Chloride Lvl (test code = Chloride Lvl) 106 95-109 [place] 506580-08-16 04:57:00 Test Item Value Reference Range Interpretation Comments CO2 (test code = CO2) 27 24-32 [place] [address]-08-16 04:57:00 Test Item Value Reference Range Interpretation Comments Calcium Lvl (test code = Calcium Lvl) 8.9 8.5-10.5 [place] 506580-08-16 04:57:00 Test Item Value Reference Range Interpretation Comments Albumin Lvl (test code = Albumin Lvl) 4.2 3.5-5.0 [place] [address]-08-16 04:57:00 Test Item Value Reference Range Interpretation Comments AGAP (test code = AGAP) 8.1 10.0-20.0 [place] [address]-08-16 04:57:00 Test Item Value Reference Range Interpretation Comments B/C Ratio (test code = B/C Ratio) 6 1 6-25 [place] [address]-08-16 04:57:00 Test Item Value Reference Range Interpretation Comments eGFR (test code = eGFR) 89 [place] [address]-08-16 04:57:00 Test Item Value Reference Range Interpretation Comments Total Protein (test code = Total 7.6 6.4-8.4 Protein) [place] [address]-08-16 04:57:00 Test Item Value Reference Range Interpretation Comments ALT (test code = ALT) 23 See_Comment [Auto mated message] The system which ge nerated this result transmit abdelrahman reference range : <=65. The reference range was not used to interpr et this result as gurpreet l/abnormal. [facility] TexasZachary Prell JNSJL9440-11-99 04:57:00 Test Item Value Reference Range Interpretation Comments AST (test code = AST) 16 See_Comment [Auto mated message] The system which ge nerated this result transmit abdelrahman reference range : <=37. The reference range was not used to interpr et this result as gurpreet l/abnormal. [facility] TexasZachary Prell ERDIN5107-31-51 04:57:00 Test Item Value Reference Range Interpretation Comments Alk Phos (test code = Alk Phos) 38 39-136 [facility] [id number] 04:57:00 Test Item Value Reference Range Interpretation Comments Bili Total (test code = Bili Total) 0.3 0.2-1.3 [facility] [id number] 04:57:00 Test Item Value Reference Range Interpretation Comments Globulin (test code = Globulin) 3.4 2.7-4.2 [facility] [id number] 04:57:00 Test Item Value Reference Range Interpretation Comments A/G Ratio (test code = A/G Ratio) 1.2 1 0.7-1.6 [place] [address]-08-16 04:57:00 Test Item Value Reference Range Interpretation Comments WBC (test code = WBC) 9.2 3.7-10.4 [id number] 04:57:00 Test Item Value Reference Range Interpretation Comments RBC (test code = RBC) 4.56 4.70-6.10 [facility] TexasQvpngdiLMHZRUXKPB9641-66-88 04:57:00 Test Item Value Reference Range Interpretation Comments Hgb (test code = Hgb) 13.3 14.0-18.0 [place] [address]-08-16 04:57:00 Test Item Value Reference Range Interpretation Comments Hct (test code = Hct) 39.7 42.0-54.0 [facility] TexasTmyjtahBESNJYHUTE1793-23-03 04:57:00 Test Item Value Reference Range Interpretation Comments MCV (test code = MCV) 87.0 80.0-94.0 [facility] TexasOweirkdFZZFAVFFYG1160-53-85 04:57:00 Test Item Value Reference Range Interpretation Comments MCH (test code = MCH) 29.2 pg 27.0-31.0 [facility] PointeAcazvhmRLFIUOWWPQ7827-98-78 04:57:00 Test Item Value Reference Range Interpretation Comments MCHC (test code = MCHC) 33.6 32.0-36.0 [facility] PointeOxgdhwaYZLLEDJOJI8480-94-02 04:57:00 Test Item Value Reference Range Interpretation Comments RDW (test code = RDW) 13.1 11.5-14.5 [facility] CypressKezwosxIQDEGZOVLN3769-54-14 04:57:00 Test Item Value Reference Range Interpretation Comments Platelet (test code = Platelet) 162 133-450 [place] [id number] 04:57:00 Test Item Value Reference Range Interpretation Comments MPV (test code = MPV) 9.8 7.4-10.4 [facility] CypressQucqqszRGDMGNLBCH6067-80-06 04:57:00 Test Item Value Reference Range Interpretation Comments Segs (test code = Segs) 79.0 45.0-75.0 [facility] CypressGpwwpdaETAGLFWLNB8963-27-26 04:57:00 Test Item Value Reference Range Interpretation Comments Lymphocytes (test code = Lymphocytes) 13.7 20.0-40.0 [place] [address]-08-16 04:57:00 Test Item Value Reference Range Interpretation Comments Monocytes (test code = Monocytes) 6.5 2.0-12.0 [facility] CypressFpjehrbOFQBTIAWNL3274-18-66 04:57:00 Test Item Value Reference Range Interpretation Comments Eosinophils (test code = 0.5 See_Comment [A utomated message] The Eosinophils) system which ge nerated this result tra nsmitted reference range : <=4.0. The reference r annemarie was not used to int erpret this result as normal/abnormal . [facility] CypressSgmiqylKCZUAIVOAH4132-32-84 04:57:00 Test Item Value Reference Range Interpretation Comments Basophils (test code = 0.3 See_Comment [Aut omated message] The Basophils) system which ge nerated this result tra nsmitted reference range : <=1.0. The reference r annemarie was not used to int erpret this result as normal/abnormal . [facility] CypressFhfnythVZZLBVHYLW4974-66-38 04:57:00 Test Item Value Reference Range Interpretation Comments Neutrophils # (test code = Neutrophils 7.3 1.5-8.1 #) [place] [address]-08-16 04:57:00 Test Item Value Reference Range Interpretation Comments Lymphocytes # (test code = Lymphocytes 1.3 1.0-5.5 #) [facility] CypressBuphfbdESLRMRZDKL3417-58-07 04:57:00 Test Item Value Reference Range Interpretation Comments Monocytes # (test code 0.6 See_Comment [Aut omated message] The = Monocytes #) system which generated this result tra nsmitted reference range : <=0.8. The reference r annemarie was not used to int erpret this result as normal/abnormal . [facility] TylerUocjdulJLVRSYPTEK7114-85-65 04:57:00 Test Item Value Reference Range Interpretation Comments Ethanol Lvl (test code = Ethanol Lvl) no gt [place] [id number] 04:57:00 Test Item Value Reference Range Interpretation Comments Etoh (%) (test code = Etoh (%)) no gt [place] [id number] 04:57:00 Test Item Value Reference Range Interpretation Comments Acetaminoph Lvl (test code (12/14/19 11:57 PM) 10-20 = Acetaminoph Lvl) [place] [id number] 04:57:00 Test Item Value Reference Range Interpretation Comments Salicylate Lvl (test 3.4 See_Comment [Autom ated message] The code = Salicylate Lvl) syste m which generated this result tra nsmitted reference range : <=30.0. The reference r annemarie was not used to int erpret this result as normal/abnormal . [facility] [id number] 04:57:00 Test Item Value Reference Range Interpretation Comments Glucose Lvl (test code = Glucose Lvl) 141 70-99 [facility] [id number] 04:57:00 Test Item Value Reference Range Interpretation Comments BUN (test code = BUN) 7 7-22 [facility] [id number] 04:57:00 Test Item Value Reference Range Interpretation Comments Creatinine Lvl (test code = Creatinine 1.10 0.50-1.40 Lvl) [facility] [id number] 04:57:00 Test Item Value Reference Range Interpretation Comments Sodium Lvl (test code = Sodium Lvl) 138 135-145 [facility] [id number] 04:57:00 Test Item Value Reference Range Interpretation Comments Potassium Lvl (test code = Potassium 3.1 3.5-5.1 Lvl) [facility] [id number] 04:57:00 Test Item Value Reference Range Interpretation Comments Chloride Lvl (test code = Chloride Lvl) 106 95-109 [facility] [id number] 04:57:00 Test Item Value Reference Range Interpretation Comments CO2 (test code = CO2) 27 24-32 [facility] [id number] 04:57:00 Test Item Value Reference Range Interpretation Comments Calcium Lvl (test code = Calcium Lvl) 8.9 8.5-10.5 [facility] [id number] 04:57:00 Test Item Value Reference Range Interpretation Comments Albumin Lvl (test code = Albumin Lvl) 4.2 3.5-5.0 [facility] [id number] 04:57:00 Test Item Value Reference Range Interpretation Comments AGAP (test code = AGAP) 8.1 10.0-20.0 [facility] [id number] 04:57:00 Test Item Value Reference Range Interpretation Comments B/C Ratio (test code = B/C Ratio) 6 1 6-25 [facility] [id number] 04:57:00 Test Item Value Reference Range Interpretation Comments eGFR (test code = eGFR) 89 [facility] [id number] 04:57:00 Test Item Value Reference Range Interpretation Comments Total Protein (test code = Total 7.6 6.4-8.4 Protein) [facility] [id number] 04:57:00 Test Item Value Reference Range Interpretation Comments ALT (test code = ALT) 23 See_Comment [Auto mated message] The system which ge nerated this result transmit abdelrahman reference range : <=65. The reference range was not used to interpr et this result as gurpreet l/abnormal. [facility] [id number] 04:57:00 Test Item Value Reference Range Interpretation Comments AST (test code = AST) 16 See_Comment [Auto mated message] The system which ge nerated this result transmit abdelrahman reference range : <=37. The reference range was not used to interpr et this result as gurpreet l/abnormal. [facility] [id number] 04:57:00 Test Item Value Reference Range Interpretation Comments Alk Phos (test code = Alk Phos) 38 39-136 [facility] [id number] 04:57:00 Test Item Value Reference Range Interpretation Comments Bili Total (test code = Bili Total) 0.3 0.2-1.3 [facility] TexasCHEM [id number] 04:57:00 Test Item Value Reference Range Interpretation Comments Globulin (test code = Globulin) 3.4 2.7-4.2 [facility] TexasCHEM [id number] 04:57:00 Test Item Value Reference Range Interpretation Comments A/G Ratio (test code = A/G Ratio) 1.2 1 0.7-1.6 [facility] HospitalVqbmcyoCZSUYSAUZP1897-68-49 04:57:00 Test Item Value Reference Range Interpretation Comments WBC (test code = WBC) 9.2 3.7-10.4 [facility] HospitalOoxrwjdBAIBFPCCBQ5674-27-65 04:57:00 Test Item Value Reference Range Interpretation Comments RBC (test code = RBC) 4.56 4.70-6.10 [facility] HospitalYxjpcgwGCDXINVEGR4314-77-85 04:57:00 Test Item Value Reference Range Interpretation Comments Hgb (test code = Hgb) 13.3 14.0-18.0 [facility] TexasGlidtxhPEOPHWCCFX0120-33-65 04:57:00 Test Item Value Reference Range Interpretation Comments Hct (test code = Hct) 39.7 42.0-54.0 [facility] HospitalZgzzdbgGDXWKCRDFM2978-30-08 04:57:00 Test Item Value Reference Range Interpretation Comments MCV (test code = MCV) 87.0 80.0-94.0 [facility] TexasInimbxpHKYFBZTCOF6681-26-31 04:57:00 Test Item Value Reference Range Interpretation Comments MCH (test code = MCH) 29.2 pg 27.0-31.0 [facility] HospitalJwvhlcoKQJFVPFJQA1607-01-21 04:57:00 Test Item Value Reference Range Interpretation Comments MCHC (test code = MCHC) 33.6 32.0-36.0 [facility] TexasPunruhaRTVQBAFDPS8202-55-98 04:57:00 Test Item Value Reference Range Interpretation Comments RDW (test code = RDW) 13.1 11.5-14.5 [facility] TexasWdgtcfnOEWGJHYNPS5554-96-91 04:57:00 Test Item Value Reference Range Interpretation Comments Platelet (test code = Platelet) 162 133-450 [facility] TexasNtraufdYOIORWVSQG4277-07-65 04:57:00 Test Item Value Reference Range Interpretation Comments MPV (test code = MPV) 9.8 7.4-10.4 [facility] CypressAjdzwmxODPQMPCOTG5806-78-60 04:57:00 Test Item Value Reference Range Interpretation Comments Segs (test code = Segs) 79.0 45.0-75.0 [facility] CypressCsgotvhQVNLNPVGRD4964-53-25 04:57:00 Test Item Value Reference Range Interpretation Comments Lymphocytes (test code = Lymphocytes) 13.7 20.0-40.0 [facility] CypressHdiocxnMGLVOOOKWR7439-58-96 04:57:00 Test Item Value Reference Range Interpretation Comments Monocytes (test code = Monocytes) 6.5 2.0-12.0 [facility] CypressSomsozcICFMHZNRFE6091-46-84 04:57:00 Test Item Value Reference Range Interpretation Comments Eosinophils (test code = 0.5 See_Comment [A utomated message] The Eosinophils) system which ge nerated this result tra nsmitted reference range : <=4.0. The reference r annemarie was not used to int erpret this result as normal/abnormal . [facility] CypressOxhlihfSUAAGHISYY9994-73-61 04:57:00 Test Item Value Reference Range Interpretation Comments Basophils (test code = 0.3 See_Comment [Aut omated message] The Basophils) system which ge nerated this result tra nsmitted reference range : <=1.0. The reference r annemarie was not used to int erpret this result as normal/abnormal . [facility] CypressOxyhtepLJOEMBCVKT0354-58-98 04:57:00 Test Item Value Reference Range Interpretation Comments Neutrophils # (test code = Neutrophils 7.3 1.5-8.1 #) [facility] CypressFqchstxLFGSWDOJWQ4829-36-95 04:57:00 Test Item Value Reference Range Interpretation Comments Lymphocytes # (test code = Lymphocytes 1.3 1.0-5.5 #) [facility] CypressOrzzmrsYGIYTFKRTQ5769-28-89 04:57:00 Test Item Value Reference Range Interpretation Comments Monocytes # (test code 0.6 See_Comment [Aut omated message] The = Monocytes #) system which generated this result tra nsmitted reference range : <=0.8. The reference r annemarie was not used to int erpret this result as normal/abnormal . [facility] TylerTidsryfSCWSBBNEZQ9992-29-00 04:57:00 Test Item Value Reference Range Interpretation Comments Ethanol Lvl (test code = [facility]anol Lvl) [facility]XCFXYO8574[facility]63 04:57:00 Test Item Value Reference Range Interpretation Comments Etoh (%) (test code = Etoh (%)) no gt [place] [id number] 04:57:00 Test Item Value Reference Range Interpretation Comments Acetaminoph Lvl (test code (12/14/19 11:57 PM) 10-20 = Acetaminoph Lvl) [facility] TylerOlycdzbRLWHABYCAE4949-38-89 04:57:00 Test Item Value Reference Range Interpretation Comments Salicylate Lvl (test 3.4 See_Comment [Autom ated message] The code = Salicylate Lvl) syste m which generated this result tra nsmitted reference range : <=30.0. The reference r annemarie was not used to int erpret this result as normal/abnormal . [facility] [id number] 04:57:00 Test Item Value Reference Range Interpretation Comments Glucose Lvl (test code = Glucose Lvl) 141 70-99 [facility] [id number] 04:57:00 Test Item Value Reference Range Interpretation Comments BUN (test code = BUN) 7 7-22 [facility] [id number] 04:57:00 Test Item Value Reference Range Interpretation Comments Creatinine Lvl (test code = Creatinine 1.10 0.50-1.40 Lvl) [facility] [id number] 04:57:00 Test Item Value Reference Range Interpretation Comments Sodium Lvl (test code = Sodium Lvl) 138 135-145 [facility] [id number] 04:57:00 Test Item Value Reference Range Interpretation Comments Potassium Lvl (test code = Potassium 3.1 3.5-5.1 Lvl) [facility] [id number] 04:57:00 Test Item Value Reference Range Interpretation Comments Chloride Lvl (test code = Chloride Lvl) 106 95-109 [facility] [id number] 04:57:00 Test Item Value Reference Range Interpretation Comments CO2 (test code = CO2) 27 24-32 [facility] [id number] 04:57:00 Test Item Value Reference Range Interpretation Comments Calcium Lvl (test code = Calcium Lvl) 8.9 8.5-10.5 [facility] [id number] 04:57:00 Test Item Value Reference Range Interpretation Comments Albumin Lvl (test code = Albumin Lvl) 4.2 3.5-5.0 [facility] [id number] 04:57:00 Test Item Value Reference Range Interpretation Comments AGAP (test code = AGAP) 8.1 10.0-20.0 [facility] [id number] 04:57:00 Test Item Value Reference Range Interpretation Comments B/C Ratio (test code = B/C Ratio) 6 1 6-25 [facility] [id number] 04:57:00 Test Item Value Reference Range Interpretation Comments eGFR (test code = eGFR) 89 [facility] [id number] 04:57:00 Test Item Value Reference Range Interpretation Comments Total Protein (test code = Total 7.6 6.4-8.4 Protein) [facility] [id number] 04:57:00 Test Item Value Reference Range Interpretation Comments ALT (test code = ALT) 23 See_Comment [Auto mated message] The system which ge nerated this result transmit abdelrahman reference range : <=65. The reference range was not used to interpr et this result as gurpreet l/abnormal. [facility] [id number] 04:57:00 Test Item Value Reference Range Interpretation Comments AST (test code = AST) 16 See_Comment [Auto mated message] The system which ge nerated this result transmit abdelrahman reference range : <=37. The reference range was not used to interpr et this result as gurpreet l/abnormal. [facility] [id number] 04:57:00 Test Item Value Reference Range Interpretation Comments Alk Phos (test code = Alk Phos) 38 39-136 [facility] [id number] 04:57:00 Test Item Value Reference Range Interpretation Comments Bili Total (test code = Bili Total) 0.3 0.2-1.3 [facility] [id number] 04:57:00 Test Item Value Reference Range Interpretation Comments Globulin (test code = Globulin) 3.4 2.7-4.2 [facility] [id number] 04:57:00 Test Item Value Reference Range Interpretation Comments A/G Ratio (test code = A/G Ratio) 1.2 1 0.7-1.6 [facility] CypressXecmwxtWDIHNMRSOG0450-41-65 04:57:00 Test Item Value Reference Range Interpretation Comments WBC (test code = WBC) 9.2 3.7-10.4 [facility] CypressKasykuoAYTBKSPPQM3601-76-89 04:57:00 Test Item Value Reference Range Interpretation Comments RBC (test code = RBC) 4.56 4.70-6.10 [facility] CypressTxvybpoPPFQEYMOQK3697-69-80 04:57:00 Test Item Value Reference Range Interpretation Comments Hgb (test code = Hgb) 13.3 14.0-18.0 [facility] CypressXwjmhyaUVBGTYRSHR9012-46-00 04:57:00 Test Item Value Reference Range Interpretation Comments Hct (test code = Hct) 39.7 42.0-54.0 [facility] CypressOgcrjjfWEEWIPYNAZ0122-02-37 04:57:00 Test Item Value Reference Range Interpretation Comments MCV (test code = MCV) 87.0 80.0-94.0 [facility] CypressHtkhtbuHWRXOFDANF8378-08-51 04:57:00 Test Item Value Reference Range Interpretation Comments MCH (test code = MCH) 29.2 pg 27.0-31.0 [facility]inteNidntnzZYTSELMSER6797-18-25 04:57:00 Test Item Value Reference Range Interpretation Comments MCHC (test code = MCHC) 33.6 32.0-36.0 [facility] PointeKeuketeRNNEBTRJGR2870-17-51 04:57:00 Test Item Value Reference Range Interpretation Comments RDW (test code = RDW) 13.1 11.5-14.5 [facility] CypressKynjyzkFKLTPENVDW2912-22-25 04:57:00 Test Item Value Reference Range Interpretation Comments Platelet (test code = Platelet) 162 133-450 [facility] CypressLlrgzldENJYBCAKIG4736-65-68 04:57:00 Test Item Value Reference Range Interpretation Comments MPV (test code = MPV) 9.8 7.4-10.4 [facility] CypressDiyksalDYCGCGDWEM9237-02-03 04:57:00 Test Item Value Reference Range Interpretation Comments Segs (test code = Segs) 79.0 45.0-75.0 [facility] CypressHyhagvoQGNMNQBXAG3952-75-68 04:57:00 Test Item Value Reference Range Interpretation Comments Lymphocytes (test code = Lymphocytes) 13.7 20.0-40.0 [facility] PointeUdvqqiuYJCEKQWIXB8751-37-79 04:57:00 Test Item Value Reference Range Interpretation Comments Monocytes (test code = Monocytes) 6.5 2.0-12.0 [facility] CypressSumbdaeHYGYOZTLIT1155-19-46 04:57:00 Test Item Value Reference Range Interpretation Comments Eosinophils (test code = 0.5 See_Comment [A utomated message] The Eosinophils) system which ge nerated this result tra nsmitted reference range : <=4.0. The reference r annemarie was not used to int erpret this result as normal/abnormal . [facility] CypressYfszbguXSFCYUNZYL3680-35-27 04:57:00 Test Item Value Reference Range Interpretation Comments Basophils (test code = 0.3 See_Comment [Aut omated message] The Basophils) system which ge nerated this result tra nsmitted reference range : <=1.0. The reference r annemarie was not used to int erpret this result as normal/abnormal . [facility] CypressMrgwvlcACENTOSSXP5761-43-32 04:57:00 Test Item Value Reference Range Interpretation Comments Neutrophils # (test code = Neutrophils 7.3 1.5-8.1 #) [facility] CypressFpljnazEGKNVSWYEB1124-87-78 04:57:00 Test Item Value Reference Range Interpretation Comments Lymphocytes # (test code = Lymphocytes 1.3 1.0-5.5 #) [facility] CypressNrhrlpsVOQNIYPYPP9197-54-02 04:57:00 Test Item Value Reference Range Interpretation Comments Monocytes # (test code 0.6 See_Comment [Aut omated message] The = Monocytes #) system which generated this result tra nsmitted reference range : <=0.8. The reference r annemarie was not used to int erpret this result as normal/abnormal . [facility] TylerShowcbbAKJIRZLJLB9450-19-10 04:57:00 Test Item Value Reference Range Interpretation Comments Ethanol Lvl (test code = Ethanol Lvl) no gt [place] [id number] 04:57:00 Test Item Value Reference Range Interpretation Comments Etoh (%) (test code = Etoh (%)) no gt [place] [id number] 04:57:00 Test Item Value Reference Range Interpretation Comments Acetaminoph Lvl (test code (12/14/19 11:57 PM) - = Acetaminoph Lvl) [place] [id number] 04:57:00 Test Item Value Reference Range Interpretation Comments Salicylate Lvl (test 3.4 See_Comment [Autom ated message] The code = Salicylate Lvl) steve abebe which generated this result tra nsmitted reference range : <=30.0. The reference r annemarie was not used to int erpret this result as normal/abnormal . [facility] [id number] 04:57:00 Test Item Value Reference Range Interpretation Comments Glucose Lvl (test code = Glucose Lvl) 141 70-99 [facility] [id number] 04:57:00 Test Item Value Reference Range Interpretation Comments BUN (test code = BUN) 7 7-22 [facility] [id number] 04:57:00 Test Item Value Reference Range Interpretation Comments Creatinine Lvl (test code = Creatinine 1.10 0.50-1.40 Lvl) [facility] [id number] 04:57:00 Test Item Value Reference Range Interpretation Comments Sodium Lvl (test code = Sodium Lvl) 138 135-145 [facility] [id number] 04:57:00 Test Item Value Reference Range Interpretation Comments Potassium Lvl (test code = Potassium 3.1 3.5-5.1 Lvl) [facility] [id number] 04:57:00 Test Item Value Reference Range Interpretation Comments Chloride Lvl (test code = Chloride Lvl) 106 95-109 [facility] [id number] 04:57:00 Test Item Value Reference Range Interpretation Comments CO2 (test code = CO2) 27 24-32 [facility] [id number] 04:57:00 Test Item Value Reference Range Interpretation Comments Calcium Lvl (test code = Calcium Lvl) 8.9 8.5-10.5 [facility] [id number] 04:57:00 Test Item Value Reference Range Interpretation Comments Albumin Lvl (test code = Albumin Lvl) 4.2 3.5-5.0 [facility] [id number] 04:57:00 Test Item Value Reference Range Interpretation Comments AGAP (test code = AGAP) 8.1 10.0-20.0 [facility] [id number] 04:57:00 Test Item Value Reference Range Interpretation Comments B/C Ratio (test code = B/C Ratio) 6 1 6-25 [facility] [id number] 04:57:00 Test Item Value Reference Range Interpretation Comments eGFR (test code = eGFR) 89 [facility] [id number] 04:57:00 Test Item Value Reference Range Interpretation Comments Total Protein (test code = Total 7.6 6.4-8.4 Protein) [facility] [id number] 04:57:00 Test Item Value Reference Range Interpretation Comments ALT (test code = ALT) 23 See_Comment [Auto mated message] The system which ge nerated this result transmit abdelrahman reference range : <=65. The reference range was not used to interpr et this result as gurpreet l/abnormal. [facility] [id number] 04:57:00 Test Item Value Reference Range Interpretation Comments AST (test code = AST) 16 See_Comment [Auto mated message] The system which ge nerated this result transmit abdelrahman reference range : <=37. The reference range was not used to interpr et this result as gurpreet l/abnormal. [facility] [id number] 04:57:00 Test Item Value Reference Range Interpretation Comments Alk Phos (test code = Alk Phos) 38 39-136 [facility] [employer] GSVPO4833-18-01 04:57:00 Test Item Value Reference Range Interpretation Comments Bili Total (test code = Bili Total) 0.3 0.2-1.3 [facility] [employer] GNKHH7340-10-90 04:57:00 Test Item Value Reference Range Interpretation Comments Globulin (test code = Globulin) 3.4 2.7-4.2 [facility] [employer] [id number] 04:57:00 Test Item Value Reference Range Interpretation Comments A/G Ratio (test code = A/G Ratio) 1.2 1 0.7-1.6 [facility]ceCRQNIBQQCF5836-12-81 04:57:00 Test Item Value Reference Range Interpretation Comments WBC (test code = WBC) 9.2 3.7-10.4 [facility]RvvivnxYARPMHVNRG9510-88-39 04:57:00 Test Item Value Reference Range Interpretation Comments RBC (test code = RBC) 4.56 4.70-6.10 [facility]ressNdlhnwpMKFRBVLIPG7261-25-77 04:57:00 Test Item Value Reference Range Interpretation Comments Hgb (test code = Hgb) 13.3 14.0-18.0 [facility] CypressKiedgthTAPZLGLIBJ4033-43-66 04:57:00 Test Item Value Reference Range Interpretation Comments Hct (test code = Hct) 39.7 42.0-54.0 [facility] CypressYpouiryWVQWGHGHVR5367-28-55 04:57:00 Test Item Value Reference Range Interpretation Comments MCV (test code = MCV) 87.0 80.0-94.0 [facility] CypressVyuqedfXYJGYYUCGE0578-18-92 04:57:00 Test Item Value Reference Range Interpretation Comments MCH (test code = MCH) 29.2 pg 27.0-31.0 [facility] CypressNhevozwEOERQYKBPH4633-76-35 04:57:00 Test Item Value Reference Range Interpretation Comments MCHC (test code = MCHC) 33.6 32.0-36.0 [facility] CypressXufapdbYPGVGBLSGF6311-60-15 04:57:00 Test Item Value Reference Range Interpretation Comments RDW (test code = RDW) 13.1 11.5-14.5 [place] 745080-08-16 04:57:00 Test Item Value Reference Range Interpretation Comments Platelet (test code = Platelet) 162 133-450 [facility] CypressUdgomxtLIWCBMGSVE6130-02-06 04:57:00 Test Item Value Reference Range Interpretation Comments MPV (test code = MPV) 9.8 7.4-10.4 [facility] CypressMjjyfqdRRHERTMMTB3254-22-82 04:57:00 Test Item Value Reference Range Interpretation Comments Segs (test code = Segs) 79.0 45.0-75.0 [facility] CypressWssffeqROLYMGPYCK7939-60-49 04:57:00 Test Item Value Reference Range Interpretation Comments Lymphocytes (test code = Lymphocytes) 13.7 20.0-40.0 [place] 745080-08-16 04:57:00 Test Item Value Reference Range Interpretation Comments Monocytes (test code = Monocytes) 6.5 2.0-12.0 [place] 8[address]-08-16 04:57:00 Test Item Value Reference Range Interpretation Comments Eosinophils (test code = 0.5 See_Comment [A utomated message] The Eosinophils) system which ge nerated this result tra nsmitted reference range : <=4.0. The reference r annemarie was not used to int erpret this result as normal/abnormal . [facility] TexasOxlnpczOOAUFPOVMY5615-53-02 04:57:00 Test Item Value Reference Range Interpretation Comments Basophils (test code = 0.3 See_Comment [Aut omated message] The Basophils) system which ge nerated this result tra nsmitted reference range : <=1.0. The reference r annemarie was not used to int erpret this result as normal/abnormal . [facility] TexasZmuxqxrUVRPOYYBFX8247-49-85 04:57:00 Test Item Value Reference Range Interpretation Comments Neutrophils # (test code = Neutrophils 7.3 1.5-8.1 #) [facility] TexasUurwsmyMKLRVSAIDU1976-68-97 04:57:00 Test Item Value Reference Range Interpretation Comments Lymphocytes # (test code = Lymphocytes 1.3 1.0-5.5 #) [facility]GqclypcCHOOITRKXS2102-26-87 04:57:00 Test Item Value Reference Range Interpretation Comments Monocytes # (test code 0.6 See_Comment [Aut omated message] The = Monocytes #) system which generated this result tra nsmitted reference range : <=0.8. The reference r annemarie was not used to int erpret this result as normal/abnormal . [facility] TexasLxpmhelOYOXYJHHDE7549-67-47 04:57:00 Test Item Value Reference Range Interpretation Comments Ethanol Lvl (test code = Ethanol Lvl) no gt [facility]FibtwxhMKBLGXRLDH5534-61-12 04:57:00 Test Item Value Reference Range Interpretation Comments Etoh (%) (test code = Etoh (%)) no gt [facility] HospitalQcfrxdzXWCECLHPLV1128-24-89 04:57:00 Test Item Value Reference Range Interpretation Comments Acetaminoph Lvl (test code (12/14/19 11:57 PM) 10-20 = Acetaminoph Lvl) [facility] TexasEpxfwghYZDPWJUYGB7080-59-28 04:57:00 Test Item Value Reference Range Interpretation Comments Salicylate Lvl (test 3.4 See_Comment [Autom ated message] The code = Salicylate Lvl) syste m which generated this result tra nsmitted reference range : <=30.0. The reference r annemarie was not used to int erpret this result as normal/abnormal . [facility]2020-08-16 04:57:00 Test Item Value Reference Range Interpretation Comments Glucose Lvl (test code = Glucose Lvl) 141 70-99 [place] 506580-08-16 04:57:00 Test Item Value Reference Range Interpretation Comments BUN (test code = BUN) 7 7-22 [place] 506580-08-16 04:57:00 Test Item Value Reference Range Interpretation Comments Creatinine Lvl (test code = Creatinine 1.10 0.50-1.40 Lvl) [facility]2020-08-16 04:57:00 Test Item Value Reference Range Interpretation Comments Sodium Lvl (test code = Sodium Lvl) 138 135-145 [place] 506580-08-16 04:57:00 Test Item Value Reference Range Interpretation Comments Potassium Lvl (test code = Potassium 3.1 3.5-5.1 Lvl) [facility] HospitalSynapCellUNC [facility]ALTH LENOIROKBNG7208-43-27 04:57:00 Test Item Value Reference Range Interpretation Comments Chloride Lvl (test code = Chloride Lvl) 106 95-109 [place] 506580-08-16 04:57:00 Test Item Value Reference Range Interpretation Comments CO2 (test code = CO2) 27 24-32 [place] 506580-08-16 04:57:00 Test Item Value Reference Range Interpretation Comments Calcium Lvl (test code = Calcium Lvl) 8.9 8.5-10.5 [place] 506580-08-16 04:57:00 Test Item Value Reference Range Interpretation Comments Albumin Lvl (test code = Albumin Lvl) 4.2 3.5-5.0 [facility]2020-08-16 04:57:00 Test Item Value Reference Range Interpretation Comments AGAP (test code = AGAP) 8.1 10.0-20.0 [place] 506580-08-16 04:57:00 Test Item Value Reference Range Interpretation Comments B/C Ratio (test code = B/C Ratio) 6 1 6-25 [place] 506580-08-16 04:57:00 Test Item Value Reference Range Interpretation Comments eGFR (test code = eGFR) 89 [place] 506580-08-16 04:57:00 Test Item Value Reference Range Interpretation Comments Total Protein (test code = Total 7.6 6.4-8.4 Protein) [facility] [employer]2020-08-16 04:57:00 Test Item Value Reference Range Interpretation Comments ALT (test code = ALT) 23 See_Comment [Auto mated message] The system which ge nerated this result transmit abdelrahman reference range : <=65. The reference range was not used to interpr et this result as gurpreet l/abnormal. [facility]2020-08-16 04:57:00 Test Item Value Reference Range Interpretation Comments AST (test code = AST) 16 See_Comment [Auto mated message] The system which ge nerated this result transmit abdelrahman reference range : <=37. The reference range was not used to interpr et this result as gurpreet l/abnormal. UUCUN-08-16 04:57:00 Test Item Value Reference Range Interpretation Comments Alk Phos (test code = Alk Phos) 38 39-136 [facility] [employer]2020-08-16 04:57:00 Test Item Value Reference Range Interpretation Comments Bili Total (test code = Bili Total) 0.3 0.2-1.3 [facility] [employer]0-08-16 04:57:00 Test Item Value Reference Range Interpretation Comments Globulin (test code = Globulin) 3.4 2.7-4.2 [facility]0-08-16 04:57:00 Test Item Value Reference Range Interpretation Comments A/G Ratio (test code = A/G Ratio) 1.2 1 0.7-1.6 [facility] ZsuykxdMFULKHQKTR0392-71-47 04:57:00 Test Item Value Reference Range Interpretation Comments WBC (test code = WBC) 9.2 3.7-10.4 [facility] ZjihcvkVYQAEWDYBS4323-14-45 04:57:00 Test Item Value Reference Range Interpretation Comments RBC (test code = RBC) 4.56 4.70-6.10 [place]0-08-16 04:57:00 Test Item Value Reference Range Interpretation Comments Hgb (test code = Hgb) 13.3 14.0-18.0 [facility] PmsjwzsGYCODCOVYH6459-79-99 04:57:00 Test Item Value Reference Range Interpretation Comments Hct (test code = Hct) 39.7 42.0-54.0 [facility] SnlglapVXGAWPDDKZ4212-88-92 04:57:00 Test Item Value Reference Range Interpretation Comments MCV (test code = MCV) 87.0 80.0-94.0 [facility] CypressYcrpxfkGIFGQFTXBS1970-94-23 04:57:00 Test Item Value Reference Range Interpretation Comments MCH (test code = MCH) 29.2 pg 27.0-31.0 [facility] CypressJvducwxUNRHAFDRHW4957-78-12 04:57:00 Test Item Value Reference Range Interpretation Comments MCHC (test code = MCHC) 33.6 32.0-36.0 [facility] CypressRpqhzpwDNDNUHTTLM3086-08-77 04:57:00 Test Item Value Reference Range Interpretation Comments RDW (test code = RDW) 13.1 11.5-14.5 [facility] CypressIwqlrqcRJKPSSLDKK2067-36-57 04:57:00 Test Item Value Reference Range Interpretation Comments Platelet (test code = Platelet) 162 133-450 [facility] CypressNonprnmNFEMVSXNDB2845-06-50 04:57:00 Test Item Value Reference Range Interpretation Comments MPV (test code = MPV) 9.8 7.4-10.4 [facility] CypressCftqtnhBWRFICYTTM1006-49-60 04:57:00 Test Item Value Reference Range Interpretation Comments Segs (test code = Segs) 79.0 45.0-75.0 [facility] CypressQfmvydbCGGOKUMRLB0379-71-17 04:57:00 Test Item Value Reference Range Interpretation Comments Lymphocytes (test code = Lymphocytes) 13.7 20.0-40.0 [facility] CypressIvxpcwcKCFLQTHKKZ5310-83-99 04:57:00 Test Item Value Reference Range Interpretation Comments Monocytes (test code = Monocytes) 6.5 2.0-12.0 [facility] CypressIiqrtcgTCYYZPUMNL5756-10-73 04:57:00 Test Item Value Reference Range Interpretation Comments Eosinophils (test code = 0.5 See_Comment [A utomated message] The Eosinophils) system which ge nerated this result tra nsmitted reference range : <=4.0. The reference r annemarie was not used to int erpret this result as normal/abnormal . [facility] CypressHklgmbjVNYULJWUYA9861-19-07 04:57:00 Test Item Value Reference Range Interpretation Comments Basophils (test code = 0.3 See_Comment [Aut omated message] The Basophils) system which ge nerated this result tra nsmitted reference range : <=1.0. The reference r annemarie was not used to int erpret this result as normal/abnormal . [facility] TexasAkmqlioWFMUKCXTJU9267-65-02 04:57:00 Test Item Value Reference Range Interpretation Comments Neutrophils # (test code = Neutrophils 7.3 1.5-8.1 #) [facility] TexasJpvpmdoDHDOKOQXBU5103-88-50 04:57:00 Test Item Value Reference Range Interpretation Comments Lymphocytes # (test code = Lymphocytes 1.3 1.0-5.5 #) [facility] TexasTzabfskDWUYUQZJKT8809-61-89 04:57:00 Test Item Value Reference Range Interpretation Comments Monocytes # (test code 0.6 See_Comment [Aut omated message] The = Monocytes #) system which generated this result tra nsmitted reference range : <=0.8. The reference r annemarie was not used to int erpret this result as normal/abnormal . [facility] TexasSiajqhqVXQGZATBLS4147-51-01 04:57:00 Test Item Value Reference Range Interpretation Comments Ethanol Lvl (test code = Ethanol Lvl) no gt [facility] TexasMmiysnnUHXYCVNRLY1974-69-57 04:57:00 Test Item Value Reference Range Interpretation Comments Etoh (%) (test code = Etoh (%)) no gt [facility] TexasZuosifySUVBHHQFKP6196-89-89 04:57:00 Test Item Value Reference Range Interpretation Comments Acetaminoph Lvl (test code (12/14/19 11:57 PM) 10-20 = Acetaminoph Lvl) [facility] TexasEzeyrtsPNIFCPDSOS4479-08-99 04:57:00 Test Item Value Reference Range Interpretation Comments Salicylate Lvl (test 3.4 See_Comment [Autom ated message] The code = Salicylate Lvl) syste m which generated this result tra nsmitted reference range : <=30.0. The reference r annemarie was not used to int erpret this result as normal/abnormal . [facility] HospitalannCARDIAC UPUNLVA3891-01-81 13:17:00 Test Item Value Reference Range Interpretation Comments Total CK (test code = Total CK) 815 12-191 [facility] HospitalKgxtsxtQLPPRBYVTIOM5075-04-88 13:17:00 Test Item Value Reference Range Interpretation Comments AGAP (test code = AGAP) 14.8 10.0-20.0 [facility] HospitalUvthdnkPOEOGANCAEEO5576-69-56 13:17:00 Test Item Value Reference Range Interpretation Comments eGFR (test code = eGFR) 93 [facility] HospitalZyhedxmJYDKIMXKKNYF4465-61-28 13:17:00 Test Item Value Reference Range Interpretation Comments Creatinine Lvl (test code = Creatinine 1.07 0.50-1.40 Lvl) [facility] HospitalOxlwnfdCAJQSRXSLCVS9341-50-95 13:17:00 Test Item Value Reference Range Interpretation Comments Sodium Lvl (test code = Sodium Lvl) 135 135-145 [facility] HospitalEavczwfWRWJWMICXMER7016-54-55 13:17:00 Test Item Value Reference Range Interpretation Comments Potassium Lvl (test code = Potassium 3.8 3.5-5.1 Lvl) [facility] HospitalAsitayxDTUITLEWKMFH9765-13-18 13:17:00 Test Item Value Reference Range Interpretation Comments Calcium Lvl (test code = Calcium Lvl) 9.3 8.5-10.5 [facility] HospitalDfvqqbgVEHLRCQSXNLD2683-37-01 13:17:00 Test Item Value Reference Range Interpretation Comments CO2 (test code = CO2) 23 24-32 [facility] HospitalUthzswdLZWOSLYBVMVF1384-21-10 13:17:00 Test Item Value Reference Range Interpretation Comments Chloride Lvl (test code = Chloride Lvl) 101 95-109 [facility] HospitalPwyfzojNOIAGAIMUSJW5792-29-59 13:17:00 Test Item Value Reference Range Interpretation Comments Glucose Lvl (test code = Glucose Lvl) 94 70-99 [facility] HospitalAazbulvIKPRJORMELWD2958-92-69 13:17:00 Test Item Value Reference Range Interpretation Comments BUN (test code = BUN) 17 7-22 [facility] CypressSgwqyhbFFJYXRGQCQ0709-65-85 13:17:00 Test Item Value Reference Range Interpretation Comments MCHC (test code = MCHC) 33.6 32.0-36.0 [facility] CypressHiogdbrAHCMOKPTFU0185-77-88 13:17:00 Test Item Value Reference Range Interpretation Comments RDW (test code = RDW) 14.7 11.5-14.5 [facility] CypressQwrdkqqLNXZSKRJTK1121-76-27 13:17:00 Test Item Value Reference Range Interpretation Comments MCH (test code = MCH) 27.9 pg 27.0-31.0 [facility] CypressAfifemdBOCDHVLCIX4612-76-97 13:17:00 Test Item Value Reference Range Interpretation Comments MCV (test code = MCV) 83.1 80.0-94.0 [facility] CypressDlerpfpLCDFXHELLE6523-72-81 13:17:00 Test Item Value Reference Range Interpretation Comments MPV (test code = MPV) 9.9 7.4-10.4 [facility] CypressNhzhltjGLIXFEEORV5005-48-67 13:17:00 Test Item Value Reference Range Interpretation Comments Platelet (test code = Platelet) 165 133-450 [facility] CypressGlhtdtgTYELCOYMHW8028-24-99 13:17:00 Test Item Value Reference Range Interpretation Comments RBC (test code = RBC) 4.63 4.70-6.10 [facility] CypressRwuglwyMBOGSLEEWU8971-31-65 13:17:00 Test Item Value Reference Range Interpretation Comments Hgb (test code = Hgb) 12.9 14.0-18.0 [facility] CypressMwokdhkUXYQXNDJQF5499-44-68 13:17:00 Test Item Value Reference Range Interpretation Comments Hct (test code = Hct) 38.4 42.0-54.0 [facility] CypressDrlrprcCSWNQVLFYP8354-48-70 13:17:00 Test Item Value Reference Range Interpretation Comments WBC (test code = WBC) 8.2 3.7-10.4 [facility] CypressDoizmvgVEYUBAVNLP8551-45-98 13:17:00 Test Item Value Reference Range Interpretation Comments Monocytes # (test code 0.9 See_Comment [Aut omated message] The = Monocytes #) system which generated this result tra nsmitted reference range : <=0.8. The reference r annemarie was not used to int erpret this result as normal/abnormal . [facility] CypressZpgwautURNLVXXGRN0286-25-83 13:17:00 Test Item Value Reference Range Interpretation Comments Eosinophils # (test code 0.1 See_Comment [A utomated message] The = Eosinophils #) system whic h generated this result tra nsmitted reference range : <=0.5. The reference r annemarie was not used to int erpret this result as normal/abnormal . [facility] CypressJxohpeqOYVHCAXRIB2117-74-52 13:17:00 Test Item Value Reference Range Interpretation Comments Lymphocytes # (test code = Lymphocytes 1.1 1.0-5.5 #) [facility] CypressJblftbeKDOXSVNPTY3936-88-68 13:17:00 Test Item Value Reference Range Interpretation Comments Neutrophils # (test code = Neutrophils 6.1 1.5-8.1 #) [facility] CypressShyfudnYQZAKIAREY3438-35-45 13:17:00 Test Item Value Reference Range Interpretation Comments Monocytes (test code = Monocytes) 11.1 2.0-12.0 [facility]inteQyfaisxSGLTGDDSII4345-95-61 13:17:00 Test Item Value Reference Range Interpretation Comments Eosinophils (test code = 0.9 See_Comment [A utomated message] The Eosinophils) system which ge nerated this result tra nsmitted reference range : <=4.0. The reference r annemarie was not used to int erpret this result as normal/abnormal . [facility] PointeRyeklmeQXNTAHXFRF2675-02-19 13:17:00 Test Item Value Reference Range Interpretation Comments Basophils (test code = 0.2 See_Comment [Aut omated message] The Basophils) system which ge nerated this result tra nsmitted reference range : <=1.0. The reference r annemarie was not used to int erpret this result as normal/abnormal . [facility] PointeTllodzhOEDHFQFDCH6490-12-09 13:17:00 Test Item Value Reference Range Interpretation Comments Segs (test code = Segs) 74.9 45.0-75.0 [facility] PointeUavgjqrAMIVMHFYTM1374-16-54 13:17:00 Test Item Value Reference Range Interpretation Comments Lymphocytes (test code = Lymphocytes) 12.9 20.0-40.0 [facility]wayNzksrbyHSKUVTUGYL6734-74-91 13:17:00 Test Item Value Reference Range Interpretation Comments Salicylate Lvl (test no gt See_Comment [Autom ated message] The code = Salicylate Lvl) syste m which generated this result tra nsmitted reference range : <=30.0. The reference r annemarie was not used to int erpret this result as normal/abnormal . [facility] TexasKrzdzgpWKHCCVFYWP4999-19-06 13:17:00 Test Item Value Reference Range Interpretation Comments Acetaminoph Lvl (test code = 3 10-20 Acetaminoph Lvl) [facility] TexasCARDIAC SXTTACV1993-40-00 13:17:00 Test Item Value Reference Range Interpretation Comments Total CK (test code = Total CK) 815 12-191 [facility] CenterVizsmyhAXHBRAWFHUWR7469-65-16 13:17:00 Test Item Value Reference Range Interpretation Comments AGAP (test code = AGAP) 14.8 10.0-20.0 [facility] HospitalIiceeixFBBOZCIIGDDC7981-65-05 13:17:00 Test Item Value Reference Range Interpretation Comments eGFR (test code = eGFR) 93 [facility] HospitalAorutjaBBQWTRLLTZIA8426-18-31 13:17:00 Test Item Value Reference Range Interpretation Comments Creatinine Lvl (test code = Creatinine 1.07 0.50-1.40 Lvl) [facility] HospitalAqbwknmAKVYRGJXRAAB0698-56-69 13:17:00 Test Item Value Reference Range Interpretation Comments Sodium Lvl (test code = Sodium Lvl) 135 135-145 [facility] HospitalNyndvujPQDNUVVBQMMB9029-36-71 13:17:00 Test Item Value Reference Range Interpretation Comments Potassium Lvl (test code = Potassium 3.8 3.5-5.1 Lvl) [facility] HospitalMgzegbsZAQVYMPFFWQN5902-98-50 13:17:00 Test Item Value Reference Range Interpretation Comments Calcium Lvl (test code = Calcium Lvl) 9.3 8.5-10.5 [facility] HospitalNzufqigJZYCJDXQWRQA3815-79-92 13:17:00 Test Item Value Reference Range Interpretation Comments CO2 (test code = CO2) 23 24-32 [facility] HospitalQkhluceBPWRKYKVLXZH0341-01-97 13:17:00 Test Item Value Reference Range Interpretation Comments Chloride Lvl (test code = Chloride Lvl) 101 95-109 [facility] HospitalWvrkwfbSQTWSCCYGMII5453-73-19 13:17:00 Test Item Value Reference Range Interpretation Comments Glucose Lvl (test code = Glucose Lvl) 94 70-99 [facility] HospitalEtfeytuPQANIALGKWCV2582-03-60 13:17:00 Test Item Value Reference Range Interpretation Comments BUN (test code = BUN) 17 7-22 [facility] CypressJztbyuhGRQYBSGRCZ7479-15-01 13:17:00 Test Item Value Reference Range Interpretation Comments MCHC (test code = MCHC) 33.6 32.0-36.0 [facility] CypressExjfebtLODGOTWQCR3061-33-82 13:17:00 Test Item Value Reference Range Interpretation Comments RDW (test code = RDW) 14.7 11.5-14.5 [facility] CypressUluigddQDBOZNTTJE2472-98-80 13:17:00 Test Item Value Reference Range Interpretation Comments MCH (test code = MCH) 27.9 pg 27.0-31.0 [facility] CypressPzkhbkxHJKUJZHUYS6522-27-52 13:17:00 Test Item Value Reference Range Interpretation Comments MCV (test code = MCV) 83.1 80.0-94.0 [facility] CypressKiaemhwIEBOGLASBA3147-19-53 13:17:00 Test Item Value Reference Range Interpretation Comments MPV (test code = MPV) 9.9 7.4-10.4 [facility] CypressIncnekrPCDBSVDBVJ7141-71-08 13:17:00 Test Item Value Reference Range Interpretation Comments Platelet (test code = Platelet) 165 133-450 [facility] CypressNeoghxmIFTVHKVEWZ7689-59-15 13:17:00 Test Item Value Reference Range Interpretation Comments RBC (test code = RBC) 4.63 4.70-6.10 [facility] CypressOjlkwuqXOGGBFLBXG1860-76-13 13:17:00 Test Item Value Reference Range Interpretation Comments Hgb (test code = Hgb) 12.9 14.0-18.0 [facility] CypressKluborvERDLERNNHU8387-47-07 13:17:00 Test Item Value Reference Range Interpretation Comments Hct (test code = Hct) 38.4 42.0-54.0 [facility] CypressOpmweijKCDKQVJWFP9364-54-08 13:17:00 Test Item Value Reference Range Interpretation Comments WBC (test code = WBC) 8.2 3.7-10.4 [facility] CypressFwmfhnyJPFOELAMQV3187-80-18 13:17:00 Test Item Value Reference Range Interpretation Comments Monocytes # (test code 0.9 See_Comment [Aut omated message] The = Monocytes #) system which generated this result tra nsmitted reference range : <=0.8. The reference r annemarie was not used to int erpret this result as normal/abnormal . [facility] CypressVounkxwVGGBKOHCAW8566-01-87 13:17:00 Test Item Value Reference Range Interpretation Comments Eosinophils # (test code 0.1 See_Comment [A utomated message] The = Eosinophils #) system whic h generated this result tra nsmitted reference range : <=0.5. The reference r annemarie was not used to int erpret this result as normal/abnormal . [facility] CypressNmboyijHMALBBZWZN5946-54-23 13:17:00 Test Item Value Reference Range Interpretation Comments Lymphocytes # (test code = Lymphocytes 1.1 1.0-5.5 #) [facility] CypressYcwnmuhLCWCBYJWGO7893-40-07 13:17:00 Test Item Value Reference Range Interpretation Comments Neutrophils # (test code = Neutrophils 6.1 1.5-8.1 #) [facility] [facility]awnfdnAEZTBSGDZZ0409-93-68 13:17:00 Test Item Value Reference Range Interpretation Comments Monocytes (test code = Monocytes) 11.1 2.0-12.0 [facility]OorsazrZRITACSMZO1559-16-62 13:17:00 Test Item Value Reference Range Interpretation Comments Eosinophils (test code = 0.9 See_Comment [A utomated message] The Eosinophils) system which ge nerated this result tra nsmitted reference range : <=4.0. The reference r annemarie was not used to int erpret this result as normal/abnormal . [facility]inteRzreqqvYDBPORNJNE9054-33-27 13:17:00 Test Item Value Reference Range Interpretation Comments Basophils (test code = 0.2 See_Comment [Aut omated message] The Basophils) system which ge nerated this result tra nsmitted reference range : <=1.0. The reference r annemarie was not used to int erpret this result as normal/abnormal . [facility]inteFmzmqcsAWTORVLOOB0992-17-31 13:17:00 Test Item Value Reference Range Interpretation Comments Segs (test code = Segs) 74.9 45.0-75.0 [facility]inteOjcgkagRDCQWUPGWX0548-67-04 13:17:00 Test Item Value Reference Range Interpretation Comments Lymphocytes (test code = Lymphocytes) 12.9 20.0-40.0 [facility] TylerThztpzhXHXERPWUTP2331-11-95 13:17:00 Test Item Value Reference Range Interpretation Comments Salicylate Lvl (test no gt See_Comment [Autom ated message] The code = Salicylate Lvl) syste m which generated this result tra nsmitted reference range : <=30.0. The reference r annemarie was not used to int erpret this result as normal/abnormal . [facility] TexasUpiefyyCDQUWAHIMJ2396-04-06 13:17:00 Test Item Value Reference Range Interpretation Comments Acetaminoph Lvl (test code = 3 10-20 Acetaminoph Lvl) [facility] TexasCARDIAC UYUZHAC8299-16-93 13:17:00 Test Item Value Reference Range Interpretation Comments Total CK (test code = Total CK) 815 12-191 [facility]NgbcppsUYKTQRTAQSUT4478-31-14 13:17:00 Test Item Value Reference Range Interpretation Comments AGAP (test code = AGAP) 14.8 10.0-20.0 [facility] HospitalZrrpvwpQZFFIAMKUMDJ2155-86-13 13:17:00 Test Item Value Reference Range Interpretation Comments eGFR (test code = eGFR) 93 [facility] HospitalDbxtholLNYGEGGIFEFQ4287-18-43 13:17:00 Test Item Value Reference Range Interpretation Comments Creatinine Lvl (test code = Creatinine 1.07 0.50-1.40 Lvl) [facility] HospitalWkgqwdcWWLFUPALNBSG6027-56-03 13:17:00 Test Item Value Reference Range Interpretation Comments Sodium Lvl (test code = Sodium Lvl) 135 135-145 [facility] HospitalBhgmombRHBEDUMQXLDF4313-80-98 13:17:00 Test Item Value Reference Range Interpretation Comments Potassium Lvl (test code = Potassium 3.8 3.5-5.1 Lvl) [facility] HospitalGtqyzkuEZDOCTNROCRU9758-57-35 13:17:00 Test Item Value Reference Range Interpretation Comments Calcium Lvl (test code = Calcium Lvl) 9.3 8.5-10.5 [facility] HospitalQimiepxFHIQONHSOEBB5503-67-77 13:17:00 Test Item Value Reference Range Interpretation Comments CO2 (test code = CO2) 23 24-32 [facility] HospitalDlnktfoWMFCVCKXEBVN2674-61-04 13:17:00 Test Item Value Reference Range Interpretation Comments Chloride Lvl (test code = Chloride Lvl) 101 95-109 [facility] HospitalDwknkcsWUOOTYWYVOLM7621-67-52 13:17:00 Test Item Value Reference Range Interpretation Comments Glucose Lvl (test code = Glucose Lvl) 94 70-99 [facility] HospitalYjrzjrrYXENGCBTVXSX2827-45-39 13:17:00 Test Item Value Reference Range Interpretation Comments BUN (test code = BUN) 17 7-22 [facility]ressIqwpkncUMALYXIQBD0284-56-81 13:17:00 Test Item Value Reference Range Interpretation Comments MCHC (test code = MCHC) 33.6 32.0-36.0 [facility] CypressUfnsymkZTIWNJZHGX5049-44-50 13:17:00 Test Item Value Reference Range Interpretation Comments RDW (test code = RDW) 14.7 11.5-14.5 [facility] CypressBtqfbctHFLKRMISUR3694-12-65 13:17:00 Test Item Value Reference Range Interpretation Comments MCH (test code = MCH) 27.9 pg 27.0-31.0 [facility] CypressJeuymqoWEGNXAKXRO5204-75-39 13:17:00 Test Item Value Reference Range Interpretation Comments MCV (test code = MCV) 83.1 80.0-94.0 [facility] CypressOvlrzasYPSWISUXHN6907-47-79 13:17:00 Test Item Value Reference Range Interpretation Comments MPV (test code = MPV) 9.9 7.4-10.4 [place] 130008-12-19 13:17:00 Test Item Value Reference Range Interpretation Comments Platelet (test code = Platelet) 165 133-450 [facility] CypressLusginsSIYIBMCUHE4797-68-00 13:17:00 Test Item Value Reference Range Interpretation Comments RBC (test code = RBC) 4.63 4.70-6.10 [facility] CypressHcoscldGUKRXQYHDC7050-76-83 13:17:00 Test Item Value Reference Range Interpretation Comments Hgb (test code = Hgb) 12.9 14.0-18.0 [facility] CypressVwdzivtNNDJDKDFYQ1343-09-49 13:17:00 Test Item Value Reference Range Interpretation Comments Hct (test code = Hct) 38.4 42.0-54.0 [facility] CypressIbjyafaLMNFWPUFGJ8139-65-45 13:17:00 Test Item Value Reference Range Interpretation Comments WBC (test code = WBC) 8.2 3.7-10.4 [facility] CypressHhonffsCSBHFMFWCY2493-73-95 13:17:00 Test Item Value Reference Range Interpretation Comments Monocytes # (test code 0.9 See_Comment [Aut omated message] The = Monocytes #) system which generated this result tra nsmitted reference range : <=0.8. The reference r annemarie was not used to int erpret this result as normal/abnormal . [facility] CypressVdfmegaJZMPRRCRQK6935-73-05 13:17:00 Test Item Value Reference Range Interpretation Comments Eosinophils # (test code 0.1 See_Comment [A utomated message] The = Eosinophils #) system whic h generated this result tra nsmitted reference range : <=0.5. The reference r annemarie was not used to int erpret this result as normal/abnormal . [facility] CypressCigdmiqSBRLEIZADQ2775-83-07 13:17:00 Test Item Value Reference Range Interpretation Comments Lymphocytes # (test code = Lymphocytes 1.1 1.0-5.5 #) [facility] CypressFezokjcVLKVNZXPBX9025-31-33 13:17:00 Test Item Value Reference Range Interpretation Comments Neutrophils # (test code = Neutrophils 6.1 1.5-8.1 #) [facility]inteLggucjoHPXJAIAFYN8966-89-98 13:17:00 Test Item Value Reference Range Interpretation Comments Monocytes (test code = Monocytes) 11.1 2.0-12.0 [facility]inteTlohkthVFISEIADFV5704-30-86 13:17:00 Test Item Value Reference Range Interpretation Comments Eosinophils (test code = 0.9 See_Comment [A utomated message] The Eosinophils) system which ge nerated this result tra nsmitted reference range : <=4.0. The reference r annemarie was not used to int erpret this result as normal/abnormal . [facility]inteKbfbpymIILIXDWFNF2260-50-56 13:17:00 Test Item Value Reference Range Interpretation Comments Basophils (test code = 0.2 See_Comment [Aut omated message] The Basophils) system which ge nerated this result tra nsmitted reference range : <=1.0. The reference r annemarie was not used to int erpret this result as normal/abnormal . [facility]inteNzmqrptIPHWAQNPOP9996-46-20 13:17:00 Test Item Value Reference Range Interpretation Comments Segs (test code = Segs) 74.9 45.0-75.0 [facility] TexasKdlhzwsVWPVHQGRPA9207-63-24 13:17:00 Test Item Value Reference Range Interpretation Comments Lymphocytes (test code = Lymphocytes) 12.9 20.0-40.0 [facility] TylerJyclkuxVWNPETSFOO3452-52-94 13:17:00 Test Item Value Reference Range Interpretation Comments Salicylate Lvl (test no gt See_Comment [Autom ated message] The code = Salicylate Lvl) syste m which generated this result tra nsmitted reference range : <=30.0. The reference r annemarie was not used to int erpret this result as normal/abnormal . [facility] TexasCseedpjODTVDOLYAA4973-14-43 13:17:00 Test Item Value Reference Range Interpretation Comments Acetaminoph Lvl (test code = 3 10-20 Acetaminoph Lvl) [facility] TexasCARDIAC EVPWKGX1148-85-36 13:17:00 Test Item Value Reference Range Interpretation Comments Total CK (test code = Total CK) 815 12-191 [facility]QzejfplSXVEAORFZUCW9725-21-90 13:17:00 Test Item Value Reference Range Interpretation Comments AGAP (test code = AGAP) 14.8 10.0-20.0 [facility] HospitalEpelrdlMDYBGFBDQUBM3483-88-70 13:17:00 Test Item Value Reference Range Interpretation Comments eGFR (test code = eGFR) 93 [facility] HospitalJggmygdGZAFBTNJFTGQ9993-60-71 13:17:00 Test Item Value Reference Range Interpretation Comments Creatinine Lvl (test code = Creatinine 1.07 0.50-1.40 Lvl) [facility] HospitalCzuojfiUJSBVTTQJKHK9622-38-09 13:17:00 Test Item Value Reference Range Interpretation Comments Sodium Lvl (test code = Sodium Lvl) 135 135-145 [facility] HospitalCaxpbxsHPIUNKXEOGDO7882-27-85 13:17:00 Test Item Value Reference Range Interpretation Comments Potassium Lvl (test code = Potassium 3.8 3.5-5.1 Lvl) [facility] HospitalGfvyonyJLWKVAHITHZD9579-43-11 13:17:00 Test Item Value Reference Range Interpretation Comments Calcium Lvl (test code = Calcium Lvl) 9.3 8.5-10.5 [facility] HospitalGsmllpnZRVSQFKKDRMW6006-91-57 13:17:00 Test Item Value Reference Range Interpretation Comments CO2 (test code = CO2) 23 24-32 [facility] HospitalAzznvksBKXDGYOVFOHS8511-39-26 13:17:00 Test Item Value Reference Range Interpretation Comments Chloride Lvl (test code = Chloride Lvl) 101 95-109 [facility] HospitalWysnylcNOYZIGTIDJIX0653-41-83 13:17:00 Test Item Value Reference Range Interpretation Comments Glucose Lvl (test code = Glucose Lvl) 94 70-99 [facility] HospitalUyepeawHXXSDFEPFGBI3715-99-73 13:17:00 Test Item Value Reference Range Interpretation Comments BUN (test code = BUN) 17 7-22 [facility] CypressGtkddjmSLLRDDBRUI1935-56-64 13:17:00 Test Item Value Reference Range Interpretation Comments MCHC (test code = MCHC) 33.6 32.0-36.0 [facility] CypressSzanfusWOHFVGZJWQ4075-53-33 13:17:00 Test Item Value Reference Range Interpretation Comments RDW (test code = RDW) 14.7 11.5-14.5 [facility] CypressLvkmzuhTCADGVXPUG9597-42-07 13:17:00 Test Item Value Reference Range Interpretation Comments MCH (test code = MCH) 27.9 pg 27.0-31.0 [facility] CypressIgylvmwRVOOTDELJX7718-24-96 13:17:00 Test Item Value Reference Range Interpretation Comments MCV (test code = MCV) 83.1 80.0-94.0 [facility] CypressRrixrxfQKHGKJIROG6021-45-04 13:17:00 Test Item Value Reference Range Interpretation Comments MPV (test code = MPV) 9.9 7.4-10.4 [place] 130008-12-19 13:17:00 Test Item Value Reference Range Interpretation Comments Platelet (test code = Platelet) 165 133-450 [facility] CypressWbgnmqePEQZEKIARH0376-55-86 13:17:00 Test Item Value Reference Range Interpretation Comments RBC (test code = RBC) 4.63 4.70-6.10 [facility] CypressFlvofwhSCJMYIFKLX1465-13-24 13:17:00 Test Item Value Reference Range Interpretation Comments Hgb (test code = Hgb) 12.9 14.0-18.0 [place] 130008-12-19 13:17:00 Test Item Value Reference Range Interpretation Comments Hct (test code = Hct) 38.4 42.0-54.0 [facility] CypressYjhjgtcKXDZWWGBCP2088-58-29 13:17:00 Test Item Value Reference Range Interpretation Comments WBC (test code = WBC) 8.2 3.7-10.4 [facility] CypressIxkilsrIXWUVBXTNZ7145-25-28 13:17:00 Test Item Value Reference Range Interpretation Comments Monocytes # (test code 0.9 See_Comment [Aut omated message] The = Monocytes #) system which generated this result tra nsmitted reference range : <=0.8. The reference r annemarie was not used to int erpret this result as normal/abnormal . [facility] CypressNuuwwyqDJYSHZSPFL6916-84-05 13:17:00 Test Item Value Reference Range Interpretation Comments Eosinophils # (test code 0.1 See_Comment [A utomated message] The = Eosinophils #) system whic h generated this result tra nsmitted reference range : <=0.5. The reference r annemarie was not used to int erpret this result as normal/abnormal . [facility] CypressBwjhhbkNIJIGVFKPK6899-66-22 13:17:00 Test Item Value Reference Range Interpretation Comments Lymphocytes # (test code = Lymphocytes 1.1 1.0-5.5 #) [facility] CypressYhavucsHWRDCMYWZF7833-41-66 13:17:00 Test Item Value Reference Range Interpretation Comments Neutrophils # (test code = Neutrophils 6.1 1.5-8.1 #) [facility]VxxmvkfGSGZNKUSLV6833-29-51 13:17:00 Test Item Value Reference Range Interpretation Comments Monocytes (test code = Monocytes) 11.1 2.0-12.0 [facility]inteRpykxjwPQWHZBRPMX2307-35-67 13:17:00 Test Item Value Reference Range Interpretation Comments Eosinophils (test code = 0.9 See_Comment [A utomated message] The Eosinophils) system which ge nerated this result tra nsmitted reference range : <=4.0. The reference r annemarie was not used to int erpret this result as normal/abnormal . [facility]inteFuqbdpyVYOCVJICRF6670-67-50 13:17:00 Test Item Value Reference Range Interpretation Comments Basophils (test code = 0.2 See_Comment [Aut omated message] The Basophils) system which ge nerated this result tra nsmitted reference range : <=1.0. The reference r annemarie was not used to int erpret this result as normal/abnormal . [facility]inteDtvtisrBLIRQERVWM9587-80-79 13:17:00 Test Item Value Reference Range Interpretation Comments Segs (test code = Segs) 74.9 45.0-75.0 [facility]inteKmfwzyrVRWTAIOZOV7745-14-70 13:17:00 Test Item Value Reference Range Interpretation Comments Lymphocytes (test code = Lymphocytes) 12.9 20.0-40.0 [facility] TylerHdguceeWEEDCPSCUH1856-01-34 13:17:00 Test Item Value Reference Range Interpretation Comments Salicylate Lvl (test no gt See_Comment [Autom ated message] The code = Salicylate Lvl) syste m which generated this result tra nsmitted reference range : <=30.0. The reference r annemarie was not used to int erpret this result as normal/abnormal . [facility] TexasCykaksvTNUJADJVTJ8772-65-68 13:17:00 Test Item Value Reference Range Interpretation Comments Acetaminoph Lvl (test code = 3 10-20 Acetaminoph Lvl) [facility] TexasCARDIAC RBUJGUT1837-57-37 13:17:00 Test Item Value Reference Range Interpretation Comments Total CK (test code = Total CK) 815 12-191 [facility] HospitalIkdpayrGTXNOTZDVMHD9119-82-55 13:17:00 Test Item Value Reference Range Interpretation Comments AGAP (test code = AGAP) 14.8 10.0-20.0 [facility] HospitalBegkmncHKUNRVVXHCBQ3727-41-68 13:17:00 Test Item Value Reference Range Interpretation Comments eGFR (test code = eGFR) 93 [facility] HospitalJemtffrRXJQPGCIUHXC5909-99-67 13:17:00 Test Item Value Reference Range Interpretation Comments Creatinine Lvl (test code = Creatinine 1.07 0.50-1.40 Lvl) [facility] HospitalIlsimeaQDWTKEQHHXXE1849-56-56 13:17:00 Test Item Value Reference Range Interpretation Comments Sodium Lvl (test code = Sodium Lvl) 135 135-145 [facility] HospitalWtfxxikUTVIIISADMMH4135-61-74 13:17:00 Test Item Value Reference Range Interpretation Comments Potassium Lvl (test code = Potassium 3.8 3.5-5.1 Lvl) [facility] HospitalCdsqrcpSQCJSIAEBLLS3474-74-45 13:17:00 Test Item Value Reference Range Interpretation Comments Calcium Lvl (test code = Calcium Lvl) 9.3 8.5-10.5 [facility] HospitalDtnbbkqGCSBGIAKKVZL0289-54-82 13:17:00 Test Item Value Reference Range Interpretation Comments CO2 (test code = CO2) 23 24-32 [facility] HospitalGhwxcxwWRBTITURMNKH2885-20-28 13:17:00 Test Item Value Reference Range Interpretation Comments Chloride Lvl (test code = Chloride Lvl) 101 95-109 [facility] HospitalNwztgjfTWLDXYPEKDRJ4802-95-47 13:17:00 Test Item Value Reference Range Interpretation Comments Glucose Lvl (test code = Glucose Lvl) 94 70-99 [facility] HospitalLbvirlgISVXXZJIBWXI7214-99-93 13:17:00 Test Item Value Reference Range Interpretation Comments BUN (test code = BUN) 17 7-22 [facility] CypressSrxmbdkNWVDTPBGBO3861-44-42 13:17:00 Test Item Value Reference Range Interpretation Comments MCHC (test code = MCHC) 33.6 32.0-36.0 [facility] CypressFnzlwlrMDYEJPKLDO3201-05-81 13:17:00 Test Item Value Reference Range Interpretation Comments RDW (test code = RDW) 14.7 11.5-14.5 [facility] CypressCuxbdsfXACAXMXFRS9166-54-53 13:17:00 Test Item Value Reference Range Interpretation Comments MCH (test code = MCH) 27.9 pg 27.0-31.0 [facility] CypressRftuebgQHXOEBKDOB2141-95-81 13:17:00 Test Item Value Reference Range Interpretation Comments MCV (test code = MCV) 83.1 80.0-94.0 [facility] CypressYxfrfhnHEWJTLZFDG9287-63-66 13:17:00 Test Item Value Reference Range Interpretation Comments MPV (test code = MPV) 9.9 7.4-10.4 [facility] CypressPnexqsxEVMRTSHVNQ6452-43-53 13:17:00 Test Item Value Reference Range Interpretation Comments Platelet (test code = Platelet) 165 133-450 [facility] CypressZjzlkbcOVGWMKOAUI0967-98-69 13:17:00 Test Item Value Reference Range Interpretation Comments RBC (test code = RBC) 4.63 4.70-6.10 [facility] CypressBrkmrcwZUPQIDVZYU2783-50-03 13:17:00 Test Item Value Reference Range Interpretation Comments Hgb (test code = Hgb) 12.9 14.0-18.0 [facility] CypressChwzkrwYUUPNOGKJP9925-11-73 13:17:00 Test Item Value Reference Range Interpretation Comments Hct (test code = Hct) 38.4 42.0-54.0 [facility] CypressIjfnucfDCNOWIYGTO3318-59-00 13:17:00 Test Item Value Reference Range Interpretation Comments WBC (test code = WBC) 8.2 3.7-10.4 [facility] CypressKvdkmnvYFPUZRJXCH1063-96-79 13:17:00 Test Item Value Reference Range Interpretation Comments Monocytes # (test code 0.9 See_Comment [Aut omated message] The = Monocytes #) system which generated this result tra nsmitted reference range : <=0.8. The reference r annemarie was not used to int erpret this result as normal/abnormal . [facility] CypressZufinbuUPXIUBZTUS6070-76-87 13:17:00 Test Item Value Reference Range Interpretation Comments Eosinophils # (test code 0.1 See_Comment [A utomated message] The = Eosinophils #) system whic h generated this result tra nsmitted reference range : <=0.5. The reference r annemarie was not used to int erpret this result as normal/abnormal . [facility] CypressTikjmhxMDVOWWYBKY5726-53-64 13:17:00 Test Item Value Reference Range Interpretation Comments Lymphocytes # (test code = Lymphocytes 1.1 1.0-5.5 #) [facility] CypressLpfjyewTZHWRKQTLY8393-45-36 13:17:00 Test Item Value Reference Range Interpretation Comments Neutrophils # (test code = Neutrophils 6.1 1.5-8.1 #) [facility]QhiyfkzPMKUGIJZDS1408-40-68 13:17:00 Test Item Value Reference Range Interpretation Comments Monocytes (test code = Monocytes) 11.1 2.0-12.0 [facility]inteYhdkkxdFRIHABQSFY6573-72-23 13:17:00 Test Item Value Reference Range Interpretation Comments Eosinophils (test code = 0.9 See_Comment [A utomated message] The Eosinophils) system which ge nerated this result tra nsmitted reference range : <=4.0. The reference r annemarie was not used to int erpret this result as normal/abnormal . [facility]inteCfjyeboVIJSQSMGTG9052-34-78 13:17:00 Test Item Value Reference Range Interpretation Comments Basophils (test code = 0.2 See_Comment [Aut omated message] The Basophils) system which ge nerated this result tra nsmitted reference range : <=1.0. The reference r annemarie was not used to int erpret this result as normal/abnormal . [facility]inteAnnnlivGQUJUWDWXO7671-52-01 13:17:00 Test Item Value Reference Range Interpretation Comments Segs (test code = Segs) 74.9 45.0-75.0 [facility]inteScerkvrTWZWVAWHVM4475-15-20 13:17:00 Test Item Value Reference Range Interpretation Comments Lymphocytes (test code = Lymphocytes) 12.9 20.0-40.0 [facility] TylerEcydwifSVTOYSKBHK7511-80-32 13:17:00 Test Item Value Reference Range Interpretation Comments Salicylate Lvl (test no gt See_Comment [Autom ated message] The code = Salicylate Lvl) syste m which generated this result tra nsmitted reference range : <=30.0. The reference r annemarie was not used to int erpret this result as normal/abnormal . [facility] TexasYwgaxldDSUNKCFWCO3499-96-44 13:17:00 Test Item Value Reference Range Interpretation Comments Acetaminoph Lvl (test code = 3 10-20 Acetaminoph Lvl) [facility] TexasCARDIAC LHHGRGJ9646-72-02 13:17:00 Test Item Value Reference Range Interpretation Comments Total CK (test code = Total CK) 815 12-191 [facility] HospitalLbtxgaiMCNRZRKILULK6585-24-41 13:17:00 Test Item Value Reference Range Interpretation Comments AGAP (test code = AGAP) 14.8 10.0-20.0 [facility] HospitalLhjqiraKIFSIWKGYKVI7112-86-73 13:17:00 Test Item Value Reference Range Interpretation Comments eGFR (test code = eGFR) 93 [facility] HospitalXljzftmHSJPCWRVLRIE2396-72-65 13:17:00 Test Item Value Reference Range Interpretation Comments Creatinine Lvl (test code = Creatinine 1.07 0.50-1.40 Lvl) [facility] HospitalVbofhgoYAUFWSCUHCQM9400-90-12 13:17:00 Test Item Value Reference Range Interpretation Comments Sodium Lvl (test code = Sodium Lvl) 135 135-145 [facility] HospitalJjdfrdbNSZYVLQWIIST2789-49-07 13:17:00 Test Item Value Reference Range Interpretation Comments Potassium Lvl (test code = Potassium 3.8 3.5-5.1 Lvl) [facility] HospitalLnijtngBIWMSABIVKLH6337-69-07 13:17:00 Test Item Value Reference Range Interpretation Comments Calcium Lvl (test code = Calcium Lvl) 9.3 8.5-10.5 [facility] HospitalMsynuhwDIAXMOSTTYET9403-29-15 13:17:00 Test Item Value Reference Range Interpretation Comments CO2 (test code = CO2) 23 24-32 [facility] HospitalKpzttnjXKEHPWSDEVUK7420-89-53 13:17:00 Test Item Value Reference Range Interpretation Comments Chloride Lvl (test code = Chloride Lvl) 101 95-109 [facility] HospitalJvgmsfiXIAKXYDJQBSM8587-36-40 13:17:00 Test Item Value Reference Range Interpretation Comments Glucose Lvl (test code = Glucose Lvl) 94 70-99 [facility] HospitalZudqqnaSOMGCBXWTVBC4216-10-13 13:17:00 Test Item Value Reference Range Interpretation Comments BUN (test code = BUN) 17 7-22 [facility] CypressYmvspxlTIREFNLRQZ5880-42-62 13:17:00 Test Item Value Reference Range Interpretation Comments MCHC (test code = MCHC) 33.6 32.0-36.0 [facility] CypressTfjmeqnBFKUBNNHIM8796-70-42 13:17:00 Test Item Value Reference Range Interpretation Comments RDW (test code = RDW) 14.7 11.5-14.5 [facility] CypressXljcvycDRJSCQPFYE0537-52-07 13:17:00 Test Item Value Reference Range Interpretation Comments MCH (test code = MCH) 27.9 pg 27.0-31.0 [facility] CypressDefcbolCXRUMBUCFX8943-20-72 13:17:00 Test Item Value Reference Range Interpretation Comments MCV (test code = MCV) 83.1 80.0-94.0 [facility] CypressJumptbrDGOIUPZRHH5020-20-85 13:17:00 Test Item Value Reference Range Interpretation Comments MPV (test code = MPV) 9.9 7.4-10.4 [place] [id number] 13:17:00 Test Item Value Reference Range Interpretation Comments Platelet (test code = Platelet) 165 133-450 [facility]ressZzzglnrOWZQCDISXX7064-85-84 13:17:00 Test Item Value Reference Range Interpretation Comments RBC (test code = RBC) 4.63 4.70-6.10 [facility] CypressThogugeYGCZNDDYXS9805-33-41 13:17:00 Test Item Value Reference Range Interpretation Comments Hgb (test code = Hgb) 12.9 14.0-18.0 [facility] CypressOxsduiiNRGNUWFPSO6751-27-86 13:17:00 Test Item Value Reference Range Interpretation Comments Hct (test code = Hct) 38.4 42.0-54.0 [facility] CypressEqqnjniVLXENNAQKF4031-53-34 13:17:00 Test Item Value Reference Range Interpretation Comments WBC (test code = WBC) 8.2 3.7-10.4 [facility] CypressCvuafvpYDRCPZWGBV8976-13-28 13:17:00 Test Item Value Reference Range Interpretation Comments Monocytes # (test code 0.9 See_Comment [Aut omated message] The = Monocytes #) system which generated this result tra nsmitted reference range : <=0.8. The reference r annemarie was not used to int erpret this result as normal/abnormal . [facility] CypressUonljtcRAAGMVWSSW2279-45-21 13:17:00 Test Item Value Reference Range Interpretation Comments Eosinophils # (test code 0.1 See_Comment [A utomated message] The = Eosinophils #) system whic h generated this result tra nsmitted reference range : <=0.5. The reference r annemarie was not used to int erpret this result as normal/abnormal . [place] 130008-12-19 13:17:00 Test Item Value Reference Range Interpretation Comments Lymphocytes # (test code = Lymphocytes 1.1 1.0-5.5 #) [facility] CypressMqfdhaoBLJMZITAWH0425-24-51 13:17:00 Test Item Value Reference Range Interpretation Comments Neutrophils # (test code = Neutrophils 6.1 1.5-8.1 #) [facility]ErzyqhuBYCHBELZGE6560-04-22 13:17:00 Test Item Value Reference Range Interpretation Comments Monocytes (test code = Monocytes) 11.1 2.0-12.0 [facility] CypressTqjqnrnOPZFBQLMXH3425-16-21 13:17:00 Test Item Value Reference Range Interpretation Comments Eosinophils (test code = 0.9 See_Comment [A utomated message] The Eosinophils) system which ge nerated this result tra nsmitted reference range : <=4.0. The reference r annemarie was not used to int erpret this result as normal/abnormal . [facility]inteKnndfxyCZQTIJNXPY4951-63-72 13:17:00 Test Item Value Reference Range Interpretation Comments Basophils (test code = 0.2 See_Comment [Aut omated message] The Basophils) system which ge nerated this result tra nsmitted reference range : <=1.0. The reference r annemarie was not used to int erpret this result as normal/abnormal . [facility] PointeMknkoorVHNLTRXHVD8646-44-25 13:17:00 Test Item Value Reference Range Interpretation Comments Segs (test code = Segs) 74.9 45.0-75.0 [facility]inteMmpxctkBPBQFYYOON8595-17-84 13:17:00 Test Item Value Reference Range Interpretation Comments Lymphocytes (test code = Lymphocytes) 12.9 20.0-40.0 [facility]GLJKNTCEG40[facility] 13:17:00 Test Item Value Reference Range Interpretation Comments Salicylate Lvl (test no gt See_Comment [Autom ated message] The code = Salicylate Lvl) syste m which generated this result tra nsmitted reference range : <=30.0. The reference r annemarie was not used to int erpret this result as normal/abnormal . [facility]LlyxibuEPCZCBUXIM1314-51-72 13:17:00 Test Item Value Reference Range Interpretation Comments Acetaminoph Lvl (test code = 3 10-20 Acetaminoph Lvl) [facility] TexasCARDIAC RGKCPCH7887-27-81 10:11:00 Test Item Value Reference Range Interpretation Comments Troponin-I (test code no gt See_Comment [Auto mated message] The = Troponin-I) system which g enerated this result transmit abdelrahman reference range : <=0.40. The reference r annemarie was not used to interpr et this result as gurpreet l/abnormal. [facility] TexasZachary Prell GYEXW3548-78-34 10:11:00 Test Item Value Reference Range Interpretation Comments Phosphorus (test code = Phosphorus) 3.7 2.5-4.5 [facility] TexasCHEM YNJRR8914-43-32 10:11:00 Test Item Value Reference Range Interpretation Comments Magnesium Lvl (test code = Magnesium 2.1 1.8-2.4 Lvl) [facility] HospitalAugayuoZQKUXDQAFBCR6352-84-64 10:11:00 Test Item Value Reference Range Interpretation Comments AGAP (test code = AGAP) 11.0 10.0-20.0 [facility] HospitalYqtfwtoFPUMIXLRGEYE1353-74-01 10:11:00 Test Item Value Reference Range Interpretation Comments Creatinine Lvl (test code = Creatinine 0.90 0.50-1.40 Lvl) [facility] HospitalPfgebxkBMWQWEOSOJLL2989-42-98 10:11:00 Test Item Value Reference Range Interpretation Comments eGFR (test code = eGFR) 114 [facility] HospitalTihuzknGJZIGJYUTMUQ5312-97-70 10:11:00 Test Item Value Reference Range Interpretation Comments Calcium Lvl (test code = Calcium Lvl) 8.2 8.5-10.5 [facility] HospitalHnstavzRUDWBLDUKVOO8054-53-19 10:11:00 Test Item Value Reference Range Interpretation Comments CO2 (test code = CO2) 25 24-32 [facility] HospitalKmmhckuZWCCKDRPTVRD5894-15-72 10:11:00 Test Item Value Reference Range Interpretation Comments Chloride Lvl (test code = Chloride Lvl) 108 95-109 [facility] HospitalXkyoeygYZBHROPTPADU0642-64-07 10:11:00 Test Item Value Reference Range Interpretation Comments Potassium Lvl (test code = Potassium 4.0 3.5-5.1 Lvl) [facility] HospitalWohbaoxEBXRBUICHYZP2613-41-09 10:11:00 Test Item Value Reference Range Interpretation Comments Sodium Lvl (test code = Sodium Lvl) 140 135-145 [facility] HospitalQoykbtpASHTFWPBOEKV2979-73-66 10:11:00 Test Item Value Reference Range Interpretation Comments BUN (test code = BUN) 11 7-22 [facility] HospitalKnlnewfKHGSWITUSWCK1956-50-96 10:11:00 Test Item Value Reference Range Interpretation Comments Glucose Lvl (test code = Glucose Lvl) 85 70-99 [facility] CypressUspmhbeZJKSOAFFNM3761-30-93 10:11:00 Test Item Value Reference Range Interpretation Comments MCH (test code = MCH) 27.9 pg 27.0-31.0 [facility] CypressOswyxdnXRFGEUFDTU4577-14-85 10:11:00 Test Item Value Reference Range Interpretation Comments MCHC (test code = MCHC) 33.5 32.0-36.0 [facility] CypressMhrjcfuZVAHADFFRC4176-25-94 10:11:00 Test Item Value Reference Range Interpretation Comments Hct (test code = Hct) 36.7 42.0-54.0 [facility] CypressGlnrwucTRARUAUMNE5652-93-40 10:11:00 Test Item Value Reference Range Interpretation Comments MCV (test code = MCV) 83.1 80.0-94.0 [facility] CypressNazaxreISEHEGQEWI3861-22-68 10:11:00 Test Item Value Reference Range Interpretation Comments RBC (test code = RBC) 4.42 4.70-6.10 [facility] CypressMhcztbdNBPXLFCFHF2282-91-36 10:11:00 Test Item Value Reference Range Interpretation Comments Hgb (test code = Hgb) 12.3 14.0-18.0 [facility] CypressEzqthbnVBXRHYMTMB2573-82-77 10:11:00 Test Item Value Reference Range Interpretation Comments WBC (test code = WBC) 8.5 3.7-10.4 [facility] CypressRuomfbaWYOVMMCDBT6930-58-30 10:11:00 Test Item Value Reference Range Interpretation Comments MPV (test code = MPV) 9.5 7.4-10.4 [facility] CypressXwkatwqTUONLILOBO4576-54-89 10:11:00 Test Item Value Reference Range Interpretation Comments RDW (test code = RDW) 14.4 11.5-14.5 [facility] CypressZopvyijOKXHXJBJFC4379-67-22 10:11:00 Test Item Value Reference Range Interpretation Comments Platelet (test code = Platelet) 164 133-450 [facility] CypressPnwkyzkSNMVBAAFUY6289-06-08 10:11:00 Test Item Value Reference Range Interpretation Comments Lymphocytes # (test code = Lymphocytes 1.2 1.0-5.5 #) [facility] CypressJomsrrhZOOASNTAGT8657-03-65 10:11:00 Test Item Value Reference Range Interpretation Comments Monocytes # (test code 0.6 See_Comment [Aut omated message] The = Monocytes #) system which generated this result tra nsmitted reference range : <=0.8. The reference r annemarie was not used to int erpret this result as normal/abnormal . [facility] CypressYkrrerjZWZOHIMPNC6925-53-18 10:11:00 Test Item Value Reference Range Interpretation Comments Eosinophils # (test code 0.2 See_Comment [A utomated message] The = Eosinophils #) system whic h generated this result tra nsmitted reference range : <=0.5. The reference r annemarie was not used to int erpret this result as normal/abnormal . [facility] CypressCybdihxDYCWFDMZJZ1495-35-87 10:11:00 Test Item Value Reference Range Interpretation Comments Basophils # (test code 0.0 See_Comment [Aut omated message] The = Basophils #) system which generated this result tra nsmitted reference range : <=0.2. The reference r annemarie was not used to int erpret this result as normal/abnormal . [facility] CypressPtbmeijQYJLHNEIIT2530-49-08 10:11:00 Test Item Value Reference Range Interpretation Comments Eosinophils (test code = 2.3 See_Comment [A utomated message] The Eosinophils) system which ge nerated this result tra nsmitted reference range : <=4.0. The reference r annemarie was not used to int erpret this result as normal/abnormal . [facility] CypressFxeojxnDIJEMVBEAG0821-85-59 10:11:00 Test Item Value Reference Range Interpretation Comments Basophils (test code = 0.3 See_Comment [Aut omated message] The Basophils) system which ge nerated this result tra nsmitted reference range : <=1.0. The reference r annemarie was not used to int erpret this result as normal/abnormal . [facility] CypressVqbqcmmOXGPAAOKCZ0891-45-24 10:11:00 Test Item Value Reference Range Interpretation Comments Neutrophils # (test code = Neutrophils 6.5 1.5-8.1 #) [facility] CypressWkbyotgPYKLKNJABN6865-80-44 10:11:00 Test Item Value Reference Range Interpretation Comments Lymphocytes (test code = Lymphocytes) 14.5 20.0-40.0 [facility] CypressXvoqvmuOSZTHESIAB3025-95-56 10:11:00 Test Item Value Reference Range Interpretation Comments Monocytes (test code = Monocytes) 6.7 2.0-12.0 [facility] CypressUaqrmfjXEULALYVRX5484-68-55 10:11:00 Test Item Value Reference Range Interpretation Comments Segs (test code = Segs) 76.2 45.0-75.0 [facility] HermannPARATHYROID RPFAZTX8208-34-42 10:11:00 Test Item Value Reference Range Interpretation Comments Ca Norm WB (test code = Ca Norm WB) 1.13 1.05-1.25 [facility] HermannPARATHYROID JSNJYEK2220-09-27 10:11:00 Test Item Value Reference Range Interpretation Comments Ca Ion WB (test code = Ca Ion WB) 1.17 1.05-1.25 [facility] QAFGDTB4485-30-14 10:11:00 Test Item Value Reference Range Interpretation Comments Troponin-I (test code no gt See_Comment [Auto mated message] The = Troponin-I) system which g enerated this result transmit abdelrahman reference range : <=0.40. The reference r annemarie was not used to interpr et this result as gurpreet l/abnormal. [facility]annCHEM WHLUU2109-21-72 10:11:00 Test Item Value Reference Range Interpretation Comments Phosphorus (test code = Phosphorus) 3.7 2.5-4.5 [facility]annCHEM ZYUEB1476-39-87 10:11:00 Test Item Value Reference Range Interpretation Comments Magnesium Lvl (test code = Magnesium 2.1 1.8-2.4 Lvl) [facility] HospitalLyoagthMTALKOWVFEKK7973-02-22 10:11:00 Test Item Value Reference Range Interpretation Comments AGAP (test code = AGAP) 11.0 10.0-20.0 [facility] HospitalApwmnegKRTWDIWSDBGJ1874-16-15 10:11:00 Test Item Value Reference Range Interpretation Comments Creatinine Lvl (test code = Creatinine 0.90 0.50-1.40 Lvl) [facility] HospitalImfpnxpTINBIVYEFJBN1528-71-18 10:11:00 Test Item Value Reference Range Interpretation Comments eGFR (test code = eGFR) 114 [facility] HospitalPgdpzjpGAJSTRYAHLCT4248-52-68 10:11:00 Test Item Value Reference Range Interpretation Comments Calcium Lvl (test code = Calcium Lvl) 8.2 8.5-10.5 [facility] HospitalLqqpdjwVFJCYQIZBTWS1815-58-07 10:11:00 Test Item Value Reference Range Interpretation Comments CO2 (test code = CO2) 25 24-32 [facility] HospitalMdligctJSSNBIEQEQFJ1780-50-08 10:11:00 Test Item Value Reference Range Interpretation Comments Chloride Lvl (test code = Chloride Lvl) 108 95-109 [facility] HospitalItgclmcDIKADWOQPEKQ7993-24-76 10:11:00 Test Item Value Reference Range Interpretation Comments Potassium Lvl (test code = Potassium 4.0 3.5-5.1 Lvl) [facility] HospitalJnixpfzZTNCYAIHKNZD3205-47-34 10:11:00 Test Item Value Reference Range Interpretation Comments Sodium Lvl (test code = Sodium Lvl) 140 135-145 [facility] HospitalSuraijpDVMXTRUYSDFJ7002-03-88 10:11:00 Test Item Value Reference Range Interpretation Comments BUN (test code = BUN) 11 7-22 [facility] HospitalNalbxdnMPZCRTWPUQRK4677-68-53 10:11:00 Test Item Value Reference Range Interpretation Comments Glucose Lvl (test code = Glucose Lvl) 85 70-99 [facility] CypressVenkhhuWKKJCZKAEA2555-65-48 10:11:00 Test Item Value Reference Range Interpretation Comments MCH (test code = MCH) 27.9 pg 27.0-31.0 [facility] CypressStfjzrgFHNEJJGOSH6793-57-13 10:11:00 Test Item Value Reference Range Interpretation Comments MCHC (test code = MCHC) 33.5 32.0-36.0 [facility] CypressUpunossBBIJOZTNEF6250-61-56 10:11:00 Test Item Value Reference Range Interpretation Comments Hct (test code = Hct) 36.7 42.0-54.0 [facility] CypressQbrmaaxZSQGHXMATG8891-75-30 10:11:00 Test Item Value Reference Range Interpretation Comments MCV (test code = MCV) 83.1 80.0-94.0 [facility] CypressWitqaujROTTAMGDIG6693-46-71 10:11:00 Test Item Value Reference Range Interpretation Comments RBC (test code = RBC) 4.42 4.70-6.10 [facility] CypressGzjsmheSODIGDGLOI4497-28-97 10:11:00 Test Item Value Reference Range Interpretation Comments Hgb (test code = Hgb) 12.3 14.0-18.0 [facility] CypressOkbuphiCIGNIGNGRW0188-07-55 10:11:00 Test Item Value Reference Range Interpretation Comments WBC (test code = WBC) 8.5 3.7-10.4 [facility] CypressTnhcjvdSNLENERPUU0222-72-80 10:11:00 Test Item Value Reference Range Interpretation Comments MPV (test code = MPV) 9.5 7.4-10.4 [facility] CypressTvelrfyUQNYIECQFL7723-11-31 10:11:00 Test Item Value Reference Range Interpretation Comments RDW (test code = RDW) 14.4 11.5-14.5 [facility] CypressWwgoojuLLQAYMYPNW7792-47-30 10:11:00 Test Item Value Reference Range Interpretation Comments Platelet (test code = Platelet) 164 133-450 [facility] CypressOjxkwhfCUKWOQHXZI2496-66-95 10:11:00 Test Item Value Reference Range Interpretation Comments Lymphocytes # (test code = Lymphocytes 1.2 1.0-5.5 #) [facility] CypressRkpefcmUQRSTKXZBK5438-96-40 10:11:00 Test Item Value Reference Range Interpretation Comments Monocytes # (test code 0.6 See_Comment [Aut omated message] The = Monocytes #) system which generated this result tra nsmitted reference range : <=0.8. The reference r annemarie was not used to int erpret this result as normal/abnormal . [facility] CypressFvxnxkcRIBXBZBFVA8292-87-83 10:11:00 Test Item Value Reference Range Interpretation Comments Eosinophils # (test code 0.2 See_Comment [A utomated message] The = Eosinophils #) system whic h generated this result tra nsmitted reference range : <=0.5. The reference r annemarie was not used to int erpret this result as normal/abnormal . [facility] CypressHtkbjkhYJSSPYJWIG0540-02-36 10:11:00 Test Item Value Reference Range Interpretation Comments Basophils # (test code 0.0 See_Comment [Aut omated message] The = Basophils #) system which generated this result tra nsmitted reference range : <=0.2. The reference r annemarie was not used to int erpret this result as normal/abnormal . [facility] CypressCrswroiNKAESYXTCM0365-94-39 10:11:00 Test Item Value Reference Range Interpretation Comments Eosinophils (test code = 2.3 See_Comment [A utomated message] The Eosinophils) system which ge nerated this result tra nsmitted reference range : <=4.0. The reference r annemarie was not used to int erpret this result as normal/abnormal . [facility] CypressIlzsmbhIIASIJOAGK0912-04-06 10:11:00 Test Item Value Reference Range Interpretation Comments Basophils (test code = 0.3 See_Comment [Aut omated message] The Basophils) system which ge nerated this result tra nsmitted reference range : <=1.0. The reference r annemarie was not used to int erpret this result as normal/abnormal . [facility] TexasNxkzcfaAPUSTWIQGM8006-98-29 10:11:00 Test Item Value Reference Range Interpretation Comments Neutrophils # (test code = Neutrophils 6.5 1.5-8.1 #) [facility] TexasHjkgzmbIWULAUYZZF4027-88-34 10:11:00 Test Item Value Reference Range Interpretation Comments Lymphocytes (test code = Lymphocytes) 14.5 20.0-40.0 [facility] HospitalMyjcwfrTVQGJKTBSD0017-80-76 10:11:00 Test Item Value Reference Range Interpretation Comments Monocytes (test code = Monocytes) 6.7 2.0-12.0 [facility] TexasJgjhprqJXCRIGWVVM1373-89-30 10:11:00 Test Item Value Reference Range Interpretation Comments Segs (test code = Segs) 76.2 45.0-75.0 [facility] TexasPARATHYROID UYDJSAU3576-00-92 10:11:00 Test Item Value Reference Range Interpretation Comments Ca Norm WB (test code = Ca Norm WB) 1.13 1.05-1.25 [facility]annPARATHYROID UZAVWPI1283-06-15 10:11:00 Test Item Value Reference Range Interpretation Comments Ca Ion WB (test code = Ca Ion WB) 1.17 1.05-1.25 [facility] TexasCARDIAC LWAGFIO3209-91-86 10:11:00 Test Item Value Reference Range Interpretation Comments Troponin-I (test code no gt See_Comment [Auto mated message] The = Troponin-I) system which g enerated this result transmit abdelrahman reference range : <=0.40. The reference r annemarie was not used to interpr et this result as gurpreet l/abnormal. [facility]annCHEM NYSLY0624-25-97 10:11:00 Test Item Value Reference Range Interpretation Comments Phosphorus (test code = Phosphorus) 3.7 2.5-4.5 [facility]annCHEM QJOZD2833-46-85 10:11:00 Test Item Value Reference Range Interpretation Comments Magnesium Lvl (test code = Magnesium 2.1 1.8-2.4 Lvl) [facility] HospitalBkucymoLSWVLLDJBJDM2985-33-92 10:11:00 Test Item Value Reference Range Interpretation Comments AGAP (test code = AGAP) 11.0 10.0-20.0 [facility] HospitalVqulgjmYPLDTTZRYESM2801-80-73 10:11:00 Test Item Value Reference Range Interpretation Comments Creatinine Lvl (test code = Creatinine 0.90 0.50-1.40 Lvl) [facility] HospitalArqokmmARWRARZQNLOI2222-98-87 10:11:00 Test Item Value Reference Range Interpretation Comments eGFR (test code = eGFR) 114 [facility] HospitalUbtrovgPBIPJAAMCXTT9548-41-94 10:11:00 Test Item Value Reference Range Interpretation Comments Calcium Lvl (test code = Calcium Lvl) 8.2 8.5-10.5 [facility] HospitalYlwosnzCHIALIYVCUZR2745-15-45 10:11:00 Test Item Value Reference Range Interpretation Comments CO2 (test code = CO2) 25 24-32 [facility] HospitalSqgmjboUEXTNGLYVOHN4943-82-37 10:11:00 Test Item Value Reference Range Interpretation Comments Chloride Lvl (test code = Chloride Lvl) 108 95-109 [facility] HospitalKpacizlZUCKBBEJAGAK7990-72-58 10:11:00 Test Item Value Reference Range Interpretation Comments Potassium Lvl (test code = Potassium 4.0 3.5-5.1 Lvl) [facility] HospitalAkadrbgJVKFAAJXLNNZ5157-27-90 10:11:00 Test Item Value Reference Range Interpretation Comments Sodium Lvl (test code = Sodium Lvl) 140 135-145 [facility] HospitalBbvqpnhHJOVQRGODREQ3278-58-77 10:11:00 Test Item Value Reference Range Interpretation Comments BUN (test code = BUN) 11 7-22 [facility] HospitalRyyeqvvVCPEMXLNOJUA9618-61-24 10:11:00 Test Item Value Reference Range Interpretation Comments Glucose Lvl (test code = Glucose Lvl) 85 70-99 [facility] CypressXbguwdwBEFUXCJAPM6038-30-81 10:11:00 Test Item Value Reference Range Interpretation Comments MCH (test code = MCH) 27.9 pg 27.0-31.0 [facility] CypressDbbcosoBHRFXLCVDC5732-19-14 10:11:00 Test Item Value Reference Range Interpretation Comments MCHC (test code = MCHC) 33.5 32.0-36.0 [facility] CypressFgulihhLIRBQWIRRP1451-61-47 10:11:00 Test Item Value Reference Range Interpretation Comments Hct (test code = Hct) 36.7 42.0-54.0 [facility] CypressHruesltGAJACNDKEO6321-31-09 10:11:00 Test Item Value Reference Range Interpretation Comments MCV (test code = MCV) 83.1 80.0-94.0 [facility] CypressItmrdbcOHVYTNUOSV0174-14-34 10:11:00 Test Item Value Reference Range Interpretation Comments RBC (test code = RBC) 4.42 4.70-6.10 [facility] CypressSkgfmfkMOLSKKOCCR8525-60-72 10:11:00 Test Item Value Reference Range Interpretation Comments Hgb (test code = Hgb) 12.3 14.0-18.0 [facility] CypressZiptqapWOZKMWVFMZ0471-46-87 10:11:00 Test Item Value Reference Range Interpretation Comments WBC (test code = WBC) 8.5 3.7-10.4 [facility] CypressHjbwbzrNNOFNPRVKY0883-88-11 10:11:00 Test Item Value Reference Range Interpretation Comments MPV (test code = MPV) 9.5 7.4-10.4 [facility] CypressYwehkfrHFACCOJJUX9759-30-78 10:11:00 Test Item Value Reference Range Interpretation Comments RDW (test code = RDW) 14.4 11.5-14.5 [facility] CypressEgyijfgTXAMVFAHDN9355-99-20 10:11:00 Test Item Value Reference Range Interpretation Comments Platelet (test code = Platelet) 164 133-450 [facility] CypressCrmxfidGURBKAGWVA0989-31-84 10:11:00 Test Item Value Reference Range Interpretation Comments Lymphocytes # (test code = Lymphocytes 1.2 1.0-5.5 #) [facility] CypressQzhhldjGEHEFHUNHM2213-80-53 10:11:00 Test Item Value Reference Range Interpretation Comments Monocytes # (test code 0.6 See_Comment [Aut omated message] The = Monocytes #) system which generated this result tra nsmitted reference range : <=0.8. The reference r annemarie was not used to int erpret this result as normal/abnormal . [facility] CypressQphtbktOCIIGDVULS0252-62-40 10:11:00 Test Item Value Reference Range Interpretation Comments Eosinophils # (test code 0.2 See_Comment [A utomated message] The = Eosinophils #) system whic h generated this result tra nsmitted reference range : <=0.5. The reference r annemarie was not used to int erpret this result as normal/abnormal . [facility] CypressNerexjyDXULVSWOHZ2932-17-00 10:11:00 Test Item Value Reference Range Interpretation Comments Basophils # (test code 0.0 See_Comment [Aut omated message] The = Basophils #) system which generated this result tra nsmitted reference range : <=0.2. The reference r annemarie was not used to int erpret this result as normal/abnormal . [facility] CypressIqodazdMBWGUGJUVC0602-62-19 10:11:00 Test Item Value Reference Range Interpretation Comments Eosinophils (test code = 2.3 See_Comment [A utomated message] The Eosinophils) system which ge nerated this result tra nsmitted reference range : <=4.0. The reference r annemarie was not used to int erpret this result as normal/abnormal . [facility] CypressUhmwhypWBCSGLIKRR4196-75-08 10:11:00 Test Item Value Reference Range Interpretation Comments Basophils (test code = 0.3 See_Comment [Aut omated message] The Basophils) system which ge nerated this result tra nsmitted reference range : <=1.0. The reference r annemarie was not used to int erpret this result as normal/abnormal . [facility] CypressAophzxyWUKGZHSESM9029-08-72 10:11:00 Test Item Value Reference Range Interpretation Comments Neutrophils # (test code = Neutrophils 6.5 1.5-8.1 #) [facility] CypressVizgbkxTYTQEWXMZM0337-26-56 10:11:00 Test Item Value Reference Range Interpretation Comments Lymphocytes (test code = Lymphocytes) 14.5 20.0-40.0 [facility]inteVhdlnajTDMDEOTDAN1059-28-99 10:11:00 Test Item Value Reference Range Interpretation Comments Monocytes (test code = Monocytes) 6.7 2.0-12.0 [facility] CypressSjolvlpDFJABPDYTW3807-27-82 10:11:00 Test Item Value Reference Range Interpretation Comments Segs (test code = Segs) 76.2 45.0-75.0 [facility] [id number] 10:11:00 Test Item Value Reference Range Interpretation Comments Ca Norm WB (test code = Ca Norm WB) 1.13 1.05-1.25 [facility] TexasPARATHYROID [id number] 10:11:00 Test Item Value Reference Range Interpretation Comments Ca Ion WB (test code = Ca Ion WB) 1.17 1.05-1.25 [facility] TexasCARDIAC [id number] 10:11:00 Test Item Value Reference Range Interpretation Comments Troponin-I (test code no gt See_Comment [Auto mated message] The = Troponin-I) system which g enerated this result transmit abdelrahman reference range : <=0.40. The reference r annemarie was not used to interpr et this result as gurpreet l/abnormal. [facility] TexasZachary Prell [id number] 10:11:00 Test Item Value Reference Range Interpretation Comments Phosphorus (test code = Phosphorus) 3.7 2.5-4.5 [facility] TexasZachary Prell [id number] 10:11:00 Test Item Value Reference Range Interpretation Comments Magnesium Lvl (test code = Magnesium 2.1 1.8-2.4 Lvl) [facility] HospitalOyqshamVBODLWSMRFNL4840-01-73 10:11:00 Test Item Value Reference Range Interpretation Comments AGAP (test code = AGAP) 11.0 10.0-20.0 [facility] HospitalQvhmvxdLJVEUIKSIYTV4422-66-83 10:11:00 Test Item Value Reference Range Interpretation Comments Creatinine Lvl (test code = Creatinine 0.90 0.50-1.40 Lvl) [facility] HospitalUlwjielVVFDUTVQXUHV4220-21-93 10:11:00 Test Item Value Reference Range Interpretation Comments eGFR (test code = eGFR) 114 [facility] HospitalVczecmyOWVZJSXJRIEH1008-90-64 10:11:00 Test Item Value Reference Range Interpretation Comments Calcium Lvl (test code = Calcium Lvl) 8.2 8.5-10.5 [facility] HospitalOakpdjoQDKSYENKOTXU5548-60-06 10:11:00 Test Item Value Reference Range Interpretation Comments CO2 (test code = CO2) 25 24-32 [facility] HospitalVrwyxctOBGJYPJTMEJI3539-71-48 10:11:00 Test Item Value Reference Range Interpretation Comments Chloride Lvl (test code = Chloride Lvl) 108 95-109 [facility] HospitalBaaadoeCNULVSCYCNJL5818-01-10 10:11:00 Test Item Value Reference Range Interpretation Comments Potassium Lvl (test code = Potassium 4.0 3.5-5.1 Lvl) [facility] HospitalDhkzrcuQPKKHAQAHPOZ4550-64-58 10:11:00 Test Item Value Reference Range Interpretation Comments Sodium Lvl (test code = Sodium Lvl) 140 135-145 [facility] HospitalNqnraxoOJDZRVXPLUPF1338-99-10 10:11:00 Test Item Value Reference Range Interpretation Comments BUN (test code = BUN) 11 7-22 [facility]CanqpvzPJVNUXBXWPFL5010-21-62 10:11:00 Test Item Value Reference Range Interpretation Comments Glucose Lvl (test code = Glucose Lvl) 85 70-99 [facility]inteObrhmusCHEKQEPIMI3927-48-79 10:11:00 Test Item Value Reference Range Interpretation Comments MCH (test code = MCH) 27.9 pg 27.0-31.0 [facility] PointeZycykvhTGDKQNAUWP3555-56-96 10:11:00 Test Item Value Reference Range Interpretation Comments MCHC (test code = MCHC) 33.5 32.0-36.0 [facility]ressPshcdrjGQCYMOXKGL9473-27-85 10:11:00 Test Item Value Reference Range Interpretation Comments Hct (test code = Hct) 36.7 42.0-54.0 [facility] CypressOhoobeuKOAZISVNCZ0225-76-15 10:11:00 Test Item Value Reference Range Interpretation Comments MCV (test code = MCV) 83.1 80.0-94.0 [facility] CypressXubjlnbIJKBUNHGSW5299-21-62 10:11:00 Test Item Value Reference Range Interpretation Comments RBC (test code = RBC) 4.42 4.70-6.10 [facility] CypressQndtohqWYYHAJGGUN6222-37-74 10:11:00 Test Item Value Reference Range Interpretation Comments Hgb (test code = Hgb) 12.3 14.0-18.0 [facility] CypressTrnattwKEMVFHATMN4713-05-99 10:11:00 Test Item Value Reference Range Interpretation Comments WBC (test code = WBC) 8.5 3.7-10.4 [facility] CypressUfseoetYVGGOEUTAE8807-42-87 10:11:00 Test Item Value Reference Range Interpretation Comments MPV (test code = MPV) 9.5 7.4-10.4 [facility] CypressGjgffjvFNRGQUWTBW1584-89-47 10:11:00 Test Item Value Reference Range Interpretation Comments RDW (test code = RDW) 14.4 11.5-14.5 [facility] CypressAeiiocnEURODHQTGJ6682-51-55 10:11:00 Test Item Value Reference Range Interpretation Comments Platelet (test code = Platelet) 164 133-450 [facility] CypressZpbfqlsIRZXJFWQGG5562-10-36 10:11:00 Test Item Value Reference Range Interpretation Comments Lymphocytes # (test code = Lymphocytes 1.2 1.0-5.5 #) [facility] CypressDktcqhtZAMGYJDNNO7663-94-48 10:11:00 Test Item Value Reference Range Interpretation Comments Monocytes # (test code 0.6 See_Comment [Aut omated message] The = Monocytes #) system which generated this result tra nsmitted reference range : <=0.8. The reference r annemarie was not used to int erpret this result as normal/abnormal . [facility] CypressQghgqabEVNCWPHIFC3828-05-51 10:11:00 Test Item Value Reference Range Interpretation Comments Eosinophils # (test code 0.2 See_Comment [A utomated message] The = Eosinophils #) system whic h generated this result tra nsmitted reference range : <=0.5. The reference r annemarie was not used to int erpret this result as normal/abnormal . [facility] CypressMjifgptCJKQGSLRVU1003-05-14 10:11:00 Test Item Value Reference Range Interpretation Comments Basophils # (test code 0.0 See_Comment [Aut omated message] The = Basophils #) system which generated this result tra nsmitted reference range : <=0.2. The reference r annemarie was not used to int erpret this result as normal/abnormal . [facility] CypressWyqpwfyJOUZZUTVIV4132-27-67 10:11:00 Test Item Value Reference Range Interpretation Comments Eosinophils (test code = 2.3 See_Comment [A utomated message] The Eosinophils) system which ge nerated this result tra nsmitted reference range : <=4.0. The reference r annemarie was not used to int erpret this result as normal/abnormal . [facility] CypressOujqmxmGESRREQIDP7769-84-63 10:11:00 Test Item Value Reference Range Interpretation Comments Basophils (test code = 0.3 See_Comment [Aut omated message] The Basophils) system which ge nerated this result tra nsmitted reference range : <=1.0. The reference r annemarie was not used to int erpret this result as normal/abnormal . [facility] CypressFexltmeTWBZEQQKOA4582-99-81 10:11:00 Test Item Value Reference Range Interpretation Comments Neutrophils # (test code = Neutrophils 6.5 1.5-8.1 #) [facility] CypressZwzpwhsJAOGZMJIYO3216-24-98 10:11:00 Test Item Value Reference Range Interpretation Comments Lymphocytes (test code = Lymphocytes) 14.5 20.0-40.0 [facility] CypressDedlnklDXVZYXIZKI4907-36-22 10:11:00 Test Item Value Reference Range Interpretation Comments Monocytes (test code = Monocytes) 6.7 2.0-12.0 [facility] HospitalKutctijSLNXMFGAFF8561-52-04 10:11:00 Test Item Value Reference Range Interpretation Comments Segs (test code = Segs) 76.2 45.0-75.0 [facility] HospitalannPARATHYROID TACNZWK1849-02-18 10:11:00 Test Item Value Reference Range Interpretation Comments Ca Norm WB (test code = Ca Norm WB) 1.13 1.05-1.25 [facility] HospitalannPARATHYROID UUVGNWT7888-75-38 10:11:00 Test Item Value Reference Range Interpretation Comments Ca Ion WB (test code = Ca Ion WB) 1.17 1.05-1.25 [facility] TexasCARDIAC SDXHKFL9818-24-05 10:11:00 Test Item Value Reference Range Interpretation Comments Troponin-I (test code no gt See_Comment [Auto mated message] The = Troponin-I) system which g enerated this result transmit abdelrahman reference range : <=0.40. The reference r annemarie was not used to interpr et this result as gurpreet l/abnormal. [facility] TexasCHEM STVRJ4736-78-57 10:11:00 Test Item Value Reference Range Interpretation Comments Phosphorus (test code = Phosphorus) 3.7 2.5-4.5 [facility] TexasCHEM HVYDI2404-99-75 10:11:00 Test Item Value Reference Range Interpretation Comments Magnesium Lvl (test code = Magnesium 2.1 1.8-2.4 Lvl) [facility] HospitalPuywahqRXWBRCYIFASD9323-11-11 10:11:00 Test Item Value Reference Range Interpretation Comments AGAP (test code = AGAP) 11.0 10.0-20.0 [facility] HospitalJswsujcYCKEITCNJHWZ8337-91-55 10:11:00 Test Item Value Reference Range Interpretation Comments Creatinine Lvl (test code = Creatinine 0.90 0.50-1.40 Lvl) [facility] HospitalDruprmkKSMHWKWFISVU5290-41-74 10:11:00 Test Item Value Reference Range Interpretation Comments eGFR (test code = eGFR) 114 [facility] HospitalZqhvemaGINEDMWSMZDU4757-86-81 10:11:00 Test Item Value Reference Range Interpretation Comments Calcium Lvl (test code = Calcium Lvl) 8.2 8.5-10.5 [facility] HospitalZgylqcmRPOEOCIBBECT6578-21-25 10:11:00 Test Item Value Reference Range Interpretation Comments CO2 (test code = CO2) 25 24-32 [facility] HospitalIruuabiXSZGXLYBABSJ1174-43-14 10:11:00 Test Item Value Reference Range Interpretation Comments Chloride Lvl (test code = Chloride Lvl) 108 95-109 [facility] HospitalEehdbbzVMIHDZZOZVUY9964-45-82 10:11:00 Test Item Value Reference Range Interpretation Comments Potassium Lvl (test code = Potassium 4.0 3.5-5.1 Lvl) [facility] HospitalDzrbuzuWKGUNAYJALTN0143-44-39 10:11:00 Test Item Value Reference Range Interpretation Comments Sodium Lvl (test code = Sodium Lvl) 140 135-145 [facility] HospitalLdmxhdlYZVWDQIWJJVP2221-41-88 10:11:00 Test Item Value Reference Range Interpretation Comments BUN (test code = BUN) 11 7-22 [facility] HospitalCafxbsdVEPCXPRIZWSG8492-40-98 10:11:00 Test Item Value Reference Range Interpretation Comments Glucose Lvl (test code = Glucose Lvl) 85 70-99 [facility] CypressYjykhpoCTLBLZZDCM3856-54-32 10:11:00 Test Item Value Reference Range Interpretation Comments MCH (test code = MCH) 27.9 pg 27.0-31.0 [facility] CypressUvjqqsiKOYQKTIYSY1893-23-36 10:11:00 Test Item Value Reference Range Interpretation Comments MCHC (test code = MCHC) 33.5 32.0-36.0 [facility] CypressGnustkoXFKRVOKGYS8738-70-44 10:11:00 Test Item Value Reference Range Interpretation Comments Hct (test code = Hct) 36.7 42.0-54.0 [facility] CypressBkllwhpUTQNCSHYTR6654-77-47 10:11:00 Test Item Value Reference Range Interpretation Comments MCV (test code = MCV) 83.1 80.0-94.0 [facility] CypressWysmfuhBEAQYXMULY3103-49-01 10:11:00 Test Item Value Reference Range Interpretation Comments RBC (test code = RBC) 4.42 4.70-6.10 [facility] CypressLdpqcbbGLADAECRNP8156-47-72 10:11:00 Test Item Value Reference Range Interpretation Comments Hgb (test code = Hgb) 12.3 14.0-18.0 [facility] CypressMdqzjbeSAHMFPAQFO3674-74-00 10:11:00 Test Item Value Reference Range Interpretation Comments WBC (test code = WBC) 8.5 3.7-10.4 [facility] CypressXoiedsoLZVQQTAYOP6430-23-62 10:11:00 Test Item Value Reference Range Interpretation Comments MPV (test code = MPV) 9.5 7.4-10.4 [facility] CypressSbrikmyOXBUTIVNPI8986-85-43 10:11:00 Test Item Value Reference Range Interpretation Comments RDW (test code = RDW) 14.4 11.5-14.5 [facility] CypressWtcdbxhOPUWVVKBIW7364-72-47 10:11:00 Test Item Value Reference Range Interpretation Comments Platelet (test code = Platelet) 164 133-450 [facility] CypressFsfohdsONVFJGYFNK7659-82-64 10:11:00 Test Item Value Reference Range Interpretation Comments Lymphocytes # (test code = Lymphocytes 1.2 1.0-5.5 #) [facility] CypressYqplsquHSXINVLRXX9428-54-83 10:11:00 Test Item Value Reference Range Interpretation Comments Monocytes # (test code 0.6 See_Comment [Aut omated message] The = Monocytes #) system which generated this result tra nsmitted reference range : <=0.8. The reference r annemarie was not used to int erpret this result as normal/abnormal . [facility] CypressSpxamlhEQUYHIRYZQ0862-67-29 10:11:00 Test Item Value Reference Range Interpretation Comments Eosinophils # (test code 0.2 See_Comment [A utomated message] The = Eosinophils #) system whic h generated this result tra nsmitted reference range : <=0.5. The reference r annemarie was not used to int erpret this result as normal/abnormal . [facility] CypressSuaazokMYDAAGJCGB9520-73-66 10:11:00 Test Item Value Reference Range Interpretation Comments Basophils # (test code 0.0 See_Comment [Aut omated message] The = Basophils #) system which generated this result tra nsmitted reference range : <=0.2. The reference r annemarie was not used to int erpret this result as normal/abnormal . [facility] CypressRyubsvkALGMYFBAZU5933-42-31 10:11:00 Test Item Value Reference Range Interpretation Comments Eosinophils (test code = 2.3 See_Comment [A utomated message] The Eosinophils) system which ge nerated this result tra nsmitted reference range : <=4.0. The reference r annemarie was not used to int erpret this result as normal/abnormal . [facility] CypressFfsjpjxXXHKKKBXKX6152-83-01 10:11:00 Test Item Value Reference Range Interpretation Comments Basophils (test code = 0.3 See_Comment [Aut omated message] The Basophils) system which ge nerated this result tra nsmitted reference range : <=1.0. The reference r annemarie was not used to int erpret this result as normal/abnormal . [facility]inteAmdhjrcQDMRMUJLHV9118-95-07 10:11:00 Test Item Value Reference Range Interpretation Comments Neutrophils # (test code = Neutrophils 6.5 1.5-8.1 #) [facility] TexasTuyrkjgWQQZBALKGL7659-17-09 10:11:00 Test Item Value Reference Range Interpretation Comments Lymphocytes (test code = Lymphocytes) 14.5 20.0-40.0 [facility] PointeFfydvsqQRICIKUUAY3890-31-68 10:11:00 Test Item Value Reference Range Interpretation Comments Monocytes (test code = Monocytes) 6.7 2.0-12.0 [facility]inteEviqjrxGVPUXUCUNU2099-20-91 10:11:00 Test Item Value Reference Range Interpretation Comments Segs (test code = Segs) 76.2 45.0-75.0 [facility] TexasPARATHYROID KXTNIZZ8070-61-15 10:11:00 Test Item Value Reference Range Interpretation Comments Ca Norm WB (test code = Ca Norm WB) 1.13 1.05-1.25 [facility] TexasPARATHYROID HBZTWBR7558-90-97 10:11:00 Test Item Value Reference Range Interpretation Comments Ca Ion WB (test code = Ca Ion WB) 1.17 1.05-1.25 [facility] TexasCARDIAC MGMHZGT9347-79-84 10:11:00 Test Item Value Reference Range Interpretation Comments Troponin-I (test code no gt See_Comment [Auto mated message] The = Troponin-I) system which g enerated this result transmit abdelrahman reference range : <=0.40. The reference r annemarie was not used to interpr et this result as gurpreet l/abnormal. [facility] TexasCHEM WIXZE7566-10-66 10:11:00 Test Item Value Reference Range Interpretation Comments Phosphorus (test code = Phosphorus) 3.7 2.5-4.5 [facility] TexasCHEM OIKLH8225-20-79 10:11:00 Test Item Value Reference Range Interpretation Comments Magnesium Lvl (test code = Magnesium 2.1 1.8-2.4 Lvl) [facility] HospitalNozfcgoNKOVUESGOKKU6411-35-26 10:11:00 Test Item Value Reference Range Interpretation Comments AGAP (test code = AGAP) 11.0 10.0-20.0 [facility] HospitalFdwbhgbQHBKDBAFAJOC1940-91-17 10:11:00 Test Item Value Reference Range Interpretation Comments Creatinine Lvl (test code = Creatinine 0.90 0.50-1.40 Lvl) [facility] HospitalOaqbwolTQSGWSOUXEYN5374-37-58 10:11:00 Test Item Value Reference Range Interpretation Comments eGFR (test code = eGFR) 114 [facility] HospitalYjzzipqQCTZWFIPHADP1401-31-02 10:11:00 Test Item Value Reference Range Interpretation Comments Calcium Lvl (test code = Calcium Lvl) 8.2 8.5-10.5 [facility] HospitalIapljffKHCZERMUGGUB6025-70-47 10:11:00 Test Item Value Reference Range Interpretation Comments CO2 (test code = CO2) 25 24-32 [facility] HospitalLhujtdgDQOLVVNERMVI2820-98-77 10:11:00 Test Item Value Reference Range Interpretation Comments Chloride Lvl (test code = Chloride Lvl) 108 95-109 [facility] HospitalFbnvngjOLCUTEIYIGCU3142-40-81 10:11:00 Test Item Value Reference Range Interpretation Comments Potassium Lvl (test code = Potassium 4.0 3.5-5.1 Lvl) [facility] HospitalJmyoptkRIINSSTDJHDT4196-00-72 10:11:00 Test Item Value Reference Range Interpretation Comments Sodium Lvl (test code = Sodium Lvl) 140 135-145 [facility] HospitalRiypbfpOFZGFTIWGHEM6501-18-28 10:11:00 Test Item Value Reference Range Interpretation Comments BUN (test code = BUN) 11 7-22 [facility] HospitalVxseigxLBYZKGOGOIWT4727-54-03 10:11:00 Test Item Value Reference Range Interpretation Comments Glucose Lvl (test code = Glucose Lvl) 85 70-99 [facility] CypressYfhunovDCNFPZSYNI5802-32-89 10:11:00 Test Item Value Reference Range Interpretation Comments MCH (test code = MCH) 27.9 pg 27.0-31.0 [facility] CypressAcbsuygDUQSRGZOWS5942-24-35 10:11:00 Test Item Value Reference Range Interpretation Comments MCHC (test code = MCHC) 33.5 32.0-36.0 [facility] CypressNwqifbbNMNQCAPJPA5705-59-39 10:11:00 Test Item Value Reference Range Interpretation Comments Hct (test code = Hct) 36.7 42.0-54.0 [facility] CypressNllenraLCNBZNIFXX8991-29-37 10:11:00 Test Item Value Reference Range Interpretation Comments MCV (test code = MCV) 83.1 80.0-94.0 [place] 130008-12-14 10:11:00 Test Item Value Reference Range Interpretation Comments RBC (test code = RBC) 4.42 4.70-6.10 [facility]ressPhsgfqdYQMZCJVTXW6499-53-63 10:11:00 Test Item Value Reference Range Interpretation Comments Hgb (test code = Hgb) 12.3 14.0-18.0 [facility] CypressGqvgqvxSLMSYRDJUW2604-03-81 10:11:00 Test Item Value Reference Range Interpretation Comments WBC (test code = WBC) 8.5 3.7-10.4 [facility] CypressQyugxsrPEXKNLRQMT0499-75-54 10:11:00 Test Item Value Reference Range Interpretation Comments MPV (test code = MPV) 9.5 7.4-10.4 [facility]ressEwdlwarVEQYEMTGFM0961-37-16 10:11:00 Test Item Value Reference Range Interpretation Comments RDW (test code = RDW) 14.4 11.5-14.5 [facility] CypressJlswstlHEAACMLWSC0657-11-79 10:11:00 Test Item Value Reference Range Interpretation Comments Platelet (test code = Platelet) 164 133-450 [facility] CypressUvemhtcQJMHIXONHL4235-00-56 10:11:00 Test Item Value Reference Range Interpretation Comments Lymphocytes # (test code = Lymphocytes 1.2 1.0-5.5 #) [facility] CypressTpqwgpmCTJOFCGDMO7519-84-00 10:11:00 Test Item Value Reference Range Interpretation Comments Monocytes # (test code 0.6 See_Comment [Aut omated message] The = Monocytes #) system which generated this result tra nsmitted reference range : <=0.8. The reference r annemarie was not used to int erpret this result as normal/abnormal . [facility] CypressKhqeeubTXITIFNZLD4046-78-43 10:11:00 Test Item Value Reference Range Interpretation Comments Eosinophils # (test code 0.2 See_Comment [A utomated message] The = Eosinophils #) system whic h generated this result tra nsmitted reference range : <=0.5. The reference r annemarie was not used to int erpret this result as normal/abnormal . [facility] CypressFqhdxiaCXYZOUARYF7507-56-51 10:11:00 Test Item Value Reference Range Interpretation Comments Basophils # (test code 0.0 See_Comment [Aut omated message] The = Basophils #) system which generated this result tra nsmitted reference range : <=0.2. The reference r annemarie was not used to int erpret this result as normal/abnormal . [facility] CypressVwhjsniQFNZFXDDQZ2421-50-66 10:11:00 Test Item Value Reference Range Interpretation Comments Eosinophils (test code = 2.3 See_Comment [A utomated message] The Eosinophils) system which ge nerated this result tra nsmitted reference range : <=4.0. The reference r annemarie was not used to int erpret this result as normal/abnormal . [facility] CypressAuqrytqUVIAOSHADH5873-92-35 10:11:00 Test Item Value Reference Range Interpretation Comments Basophils (test code = 0.3 See_Comment [Aut omated message] The Basophils) system which ge nerated this result tra nsmitted reference range : <=1.0. The reference r annemarie was not used to int erpret this result as normal/abnormal . [facility] CypressNidrdnsGPZLZISNUT2704-72-12 10:11:00 Test Item Value Reference Range Interpretation Comments Neutrophils # (test code = Neutrophils 6.5 1.5-8.1 #) [facility] CypressHwqpiycXYSWTAPAGY8601-78-70 10:11:00 Test Item Value Reference Range Interpretation Comments Lymphocytes (test code = Lymphocytes) 14.5 20.0-40.0 [facility] CypressEuxcimwKXFIJZZVPW2267-58-62 10:11:00 Test Item Value Reference Range Interpretation Comments Monocytes (test code = Monocytes) 6.7 2.0-12.0 [facility] CypressEiobqxvNGQBMMYAHA4723-98-89 10:11:00 Test Item Value Reference Range Interpretation Comments Segs (test code = Segs) 76.2 45.0-75.0 [facility]2018-12-14 10:11:00 Test Item Value Reference Range Interpretation Comments Ca Norm WB (test code = Ca Norm WB) 1.13 1.05-1.25 [facility]2018-12-14 10:11:00 Test Item Value Reference Range Interpretation Comments Ca Ion WB (test code = Ca Ion WB) 1.17 1.05-1.25 [facility] [id number] 06:21:00 Test Item Value Reference Range Interpretation Comments UA Bili (test code = Negative *NA*(04/13/18 UA Bili) 12:21 AM) [facility] [id number] 06:21:00 Test Item Value Reference Range Interpretation Comments UA pH (test code = UA pH) 7.0 1 5.0-8.0 [facility] [id number] 06:21:00 Test Item Value Reference Range Interpretation Comments UA Blood (test code = Negative (04/13/18 12:21 UA Blood) AM) [facility] [id number] 06:21:00 Test Item Value Reference Range Interpretation Comments UA Protein (test code Negative (04/13/18 = UA Protein) 12:21 AM) [facility] [id number] 06:21:00 Test Item Value Reference Range Interpretation Comments UA Sq Epi (test code = None Seen (04/13/18 UA Sq Epi) 12:21 AM) [facility] [id number] 06:21:00 Test Item Value Reference Range Interpretation Comments UA WBC (test code = 1 See_Comment [Automa abdelrahman message] The UA WBC) system which ge nerated this result transmit abdelrahman reference range : <=5. The reference range was not used to interpr et this result as gurpreet l/abnormal. [facility] [id number] 06:21:00 Test Item Value Reference Range Interpretation Comments UA RBC (test code = 1 See_Comment [Automa abdelrahman message] The UA RBC) system which ge nerated this result transmit abdelrahman reference range : <=2. The reference range was not used to interpr et this result as gurpreet l/abnormal. [facility] [id number] 06:21:00 Test Item Value Reference Range Interpretation Comments UA Snover Yeast (test code = UA Occasional /HPF Snover Yeast) [facility] [id number] 06:21:00 Test Item Value Reference Range Interpretation Comments UA Color (test code = UA Color) Ltyellow [facility] [id number] 06:21:00 Test Item Value Reference Range Interpretation Comments UA Spec Grav (test code = UA Spec 1.009 1 Grav) [facility] AND [id number] 06:21:00 Test Item Value Reference Range Interpretation Comments UA Turbidity (test code = Clear (04/13/18 UA Turbidity) 12:21 AM) [facility] AND [id number] 06:21:00 Test Item Value Reference Range Interpretation Comments UA Urobilinogen (test code = UA no gt 0.1-1.0 Urobilinogen) [facility] AND [id number] 06:21:00 Test Item Value Reference Range Interpretation Comments UA Ketones (test code Negative *NA*(04/13/18 = UA Ketones) 12:21 AM) [facility] AND [id number] 06:21:00 Test Item Value Reference Range Interpretation Comments UA Glucose (test code Negative *NA*(04/13/18 = UA Glucose) 12:21 AM) [facility] AND [id number] 06:21:00 Test Item Value Reference Range Interpretation Comments UA Leuk Est (test code Trace *ABN*(04/13/18 = UA Leuk Est) 12:21 AM) [facility] AND [id number] 06:21:00 Test Item Value Reference Range Interpretation Comments UA Nitrite (test code Negative (04/13/18 = UA Nitrite) 12:21 AM) [facility] AND [id number] 06:21:00 Test Item Value Reference Range Interpretation Comments UA Bili (test code = Negative *NA*(04/13/18 UA Bili) 12:21 AM) [facility] AND [id number] 06:21:00 Test Item Value Reference Range Interpretation Comments UA pH (test code = UA pH) 7.0 1 5.0-8.0 [facility] AND [id number] 06:21:00 Test Item Value Reference Range Interpretation Comments UA Blood (test code = Negative (04/13/18 12:21 UA Blood) AM) [facility] AND [id number] 06:21:00 Test Item Value Reference Range Interpretation Comments UA Protein (test code Negative (04/13/18 = UA Protein) 12:21 AM) [facility] AND [id number] 06:21:00 Test Item Value Reference Range Interpretation Comments UA Sq Epi (test code = None Seen (04/13/18 UA Sq Epi) 12:21 AM) [facility] AND [id number] 06:21:00 Test Item Value Reference Range Interpretation Comments UA WBC (test code = 1 See_Comment [Automa abdelrhaman message] The UA WBC) system which ge nerated this result transmit abdelrahman reference range : <=5. The reference range was not used to interpr et this result as gurpreet l/abnormal. [facility] [id number] 06:21:00 Test Item Value Reference Range Interpretation Comments UA RBC (test code = 1 See_Comment [Automa abdelrahman message] The UA RBC) system which ge nerated this result transmit abdelrahman reference range : <=2. The reference range was not used to interpr et this result as gurpreet l/abnormal. [facility] AND [id number] 06:21:00 Test Item Value Reference Range Interpretation Comments UA Snover Yeast (test code = UA Occasional /HPF Snover Yeast) [facility] AND [id number] 06:21:00 Test Item Value Reference Range Interpretation Comments UA Color (test code = UA Color) Ltyellow [facility] AND [id number] 06:21:00 Test Item Value Reference Range Interpretation Comments UA Spec Grav (test code = UA Spec 1.009 1 Grav) [facility] AND [id number] 06:21:00 Test Item Value Reference Range Interpretation Comments UA Turbidity (test code = Clear (04/13/18 UA Turbidity) 12:21 AM) [facility] AND [id number] 06:21:00 Test Item Value Reference Range Interpretation Comments UA Urobilinogen (test code = UA no gt 0.1-1.0 Urobilinogen) [facility] AND [id number] 06:21:00 Test Item Value Reference Range Interpretation Comments UA Ketones (test code Negative *NA*(04/13/18 = UA Ketones) 12:21 AM) [facility] AND [id number] 06:21:00 Test Item Value Reference Range Interpretation Comments UA Glucose (test code Negative *NA*(04/13/18 = UA Glucose) 12:21 AM) [facility] [id number] 06:21:00 Test Item Value Reference Range Interpretation Comments UA Leuk Est (test code Trace *ABN*(04/13/18 = UA Leuk Est) 12:21 AM) [facility] [id number] 06:21:00 Test Item Value Reference Range Interpretation Comments UA Nitrite (test code Negative (04/13/18 = UA Nitrite) 12:21 AM) [facility] [id number] 06:21:00 Test Item Value Reference Range Interpretation Comments UA Bili (test code = Negative *NA*(04/13/18 UA Bili) 12:21 AM) [facility] [id number] 06:21:00 Test Item Value Reference Range Interpretation Comments UA pH (test code = UA pH) 7.0 1 5.0-8.0 [facility] [id number] 06:21:00 Test Item Value Reference Range Interpretation Comments UA Blood (test code = Negative (04/13/18 12:21 UA Blood) AM) [facility] [id number] 06:21:00 Test Item Value Reference Range Interpretation Comments UA Protein (test code Negative (04/13/18 = UA Protein) 12:21 AM) [facility] [id number] 06:21:00 Test Item Value Reference Range Interpretation Comments UA Sq Epi (test code = None Seen (04/13/18 UA Sq Epi) 12:21 AM) [facility] [id number] 06:21:00 Test Item Value Reference Range Interpretation Comments UA WBC (test code = 1 See_Comment [Automa abdelrahman message] The UA WBC) system which ge nerated this result transmit abdelrahman reference range : <=5. The reference range was not used to interpr et this result as gurpreet l/abnormal. [facility] [id number] 06:21:00 Test Item Value Reference Range Interpretation Comments UA RBC (test code = 1 See_Comment [Automa abdelrahman message] The UA RBC) system which ge nerated this result transmit abdelrahman reference range : <=2. The reference range was not used to interpr et this result as gurpreet l/abnormal. [facility] [id number] 06:21:00 Test Item Value Reference Range Interpretation Comments UA Snover Yeast (test code = UA Occasional /HPF Snover Yeast) [facility] AND [id number] 06:21:00 Test Item Value Reference Range Interpretation Comments UA Color (test code = UA Color) Ltyellow [facility] AND [id number] 06:21:00 Test Item Value Reference Range Interpretation Comments UA Spec Grav (test code = UA Spec 1.009 1 Grav) [facility] AND [id number] 06:21:00 Test Item Value Reference Range Interpretation Comments UA Turbidity (test code = Clear (04/13/18 UA Turbidity) 12:21 AM) [facility] AND [id number] 06:21:00 Test Item Value Reference Range Interpretation Comments UA Urobilinogen (test code = UA no gt 0.1-1.0 Urobilinogen) [facility] AND [id number] 06:21:00 Test Item Value Reference Range Interpretation Comments UA Ketones (test code Negative *NA*(04/13/18 = UA Ketones) 12:21 AM) [facility] AND [id number] 06:21:00 Test Item Value Reference Range Interpretation Comments UA Glucose (test code Negative *NA*(04/13/18 = UA Glucose) 12:21 AM) [facility] AND [id number] 06:21:00 Test Item Value Reference Range Interpretation Comments UA Leuk Est (test code Trace *ABN*(04/13/18 = UA Leuk Est) 12:21 AM) [facility] AND [id number] 06:21:00 Test Item Value Reference Range Interpretation Comments UA Nitrite (test code Negative (04/13/18 = UA Nitrite) 12:21 AM) [facility] AND [id number] 06:21:00 Test Item Value Reference Range Interpretation Comments UA Bili (test code = Negative *NA*(04/13/18 UA Bili) 12:21 AM) [facility] AND [id number] 06:21:00 Test Item Value Reference Range Interpretation Comments UA pH (test code = UA pH) 7.0 1 5.0-8.0 [facility] AND [id number] 06:21:00 Test Item Value Reference Range Interpretation Comments UA Blood (test code = Negative (04/13/18 12:21 UA Blood) AM) [facility] AND [id number] 06:21:00 Test Item Value Reference Range Interpretation Comments UA Protein (test code Negative (04/13/18 = UA Protein) 12:21 AM) [facility] AND [id number] 06:21:00 Test Item Value Reference Range Interpretation Comments UA Sq Epi (test code = None Seen (04/13/18 UA Sq Epi) 12:21 AM) [facility] AND [id number] 06:21:00 Test Item Value Reference Range Interpretation Comments UA WBC (test code = 1 See_Comment [Automa abdelrahman message] The UA WBC) system which ge nerated this result transmit abdelrahman reference range : <=5. The reference range was not used to interpr et this result as gurpreet l/abnormal. [facility] AND [id number] 06:21:00 Test Item Value Reference Range Interpretation Comments UA RBC (test code = 1 See_Comment [Automa abdelrahman message] The UA RBC) system which ge nerated this result transmit abdelrahman reference range : <=2. The reference range was not used to interpr et this result as gurpreet l/abnormal. [facility] AND [id number] 06:21:00 Test Item Value Reference Range Interpretation Comments UA Snover Yeast (test code = UA Occasional /HPF Snover Yeast) [facility] AND [id number] 06:21:00 Test Item Value Reference Range Interpretation Comments UA Color (test code = UA Color) Ltyellow [facility] AND [id number] 06:21:00 Test Item Value Reference Range Interpretation Comments UA Spec Grav (test code = UA Spec 1.009 1 Grav) [facility] AND [id number] 06:21:00 Test Item Value Reference Range Interpretation Comments UA Turbidity (test code = Clear (04/13/18 UA Turbidity) 12:21 AM) [facility] AND [id number] 06:21:00 Test Item Value Reference Range Interpretation Comments UA Urobilinogen (test code = UA no gt 0.1-1.0 Urobilinogen) [facility] AND [id number] 06:21:00 Test Item Value Reference Range Interpretation Comments UA Ketones (test code Negative *NA*(04/13/18 = UA Ketones) 12:21 AM) [facility] AND [id number] 06:21:00 Test Item Value Reference Range Interpretation Comments UA Glucose (test code Negative *NA*(04/13/18 = UA Glucose) 12:21 AM) [facility] AND [id number] 06:21:00 Test Item Value Reference Range Interpretation Comments UA Leuk Est (test code Trace *ABN*(04/13/18 = UA Leuk Est) 12:21 AM) [facility] AND [id number] 06:21:00 Test Item Value Reference Range Interpretation Comments UA Nitrite (test code Negative (04/13/18 = UA Nitrite) 12:21 AM) [facility] AND [id number] 06:21:00 Test Item Value Reference Range Interpretation Comments UA Bili (test code = Negative *NA*(04/13/18 UA Bili) 12:21 AM) [facility] AND [id number] 06:21:00 Test Item Value Reference Range Interpretation Comments UA pH (test code = UA pH) 7.0 1 5.0-8.0 [facility] AND [id number] 06:21:00 Test Item Value Reference Range Interpretation Comments UA Blood (test code = Negative (04/13/18 12:21 UA Blood) AM) [facility] AND [id number] 06:21:00 Test Item Value Reference Range Interpretation Comments UA Protein (test code Negative (04/13/18 = UA Protein) 12:21 AM) [facility] AND [id number] 06:21:00 Test Item Value Reference Range Interpretation Comments UA Sq Epi (test code = None Seen (04/13/18 UA Sq Epi) 12:21 AM) [facility] AND [id number] 06:21:00 Test Item Value Reference Range Interpretation Comments UA WBC (test code = 1 See_Comment [Automa abdelrahman message] The UA WBC) system which ge nerated this result transmit abdelrahman reference range : <=5. The reference range was not used to interpr et this result as gurpreet l/abnormal. [facility] AND [id number] 06:21:00 Test Item Value Reference Range Interpretation Comments UA RBC (test code = 1 See_Comment [Automa abdelrahman message] The UA RBC) system which ge nerated this result transmit abdelrahman reference range : <=2. The reference range was not used to interpr et this result as gurpreet l/abnormal. [facility] AND [id number] 06:21:00 Test Item Value Reference Range Interpretation Comments UA Snover Yeast (test code = UA Occasional /HPF Snover Yeast) [facility] AND [id number] 06:21:00 Test Item Value Reference Range Interpretation Comments UA Color (test code = UA Color) Ltyellow [facility] AND [id number] 06:21:00 Test Item Value Reference Range Interpretation Comments UA Spec Grav (test code = UA Spec 1.009 1 Grav) [facility] AND [id number] 06:21:00 Test Item Value Reference Range Interpretation Comments UA Turbidity (test code = Clear (04/13/18 UA Turbidity) 12:21 AM) [facility] AND [id number] 06:21:00 Test Item Value Reference Range Interpretation Comments UA Urobilinogen (test code = UA no gt 0.1-1.0 Urobilinogen) [facility] AND [id number] 06:21:00 Test Item Value Reference Range Interpretation Comments UA Ketones (test code Negative *NA*(04/13/18 = UA Ketones) 12:21 AM) [facility] AND [id number] 06:21:00 Test Item Value Reference Range Interpretation Comments UA Glucose (test code Negative *NA*(04/13/18 = UA Glucose) 12:21 AM) [facility] AND [id number] 06:21:00 Test Item Value Reference Range Interpretation Comments UA Leuk Est (test code Trace *ABN*(04/13/18 = UA Leuk Est) 12:21 AM) [facility] AND [id number] 06:21:00 Test Item Value Reference Range Interpretation Comments UA Nitrite (test code Negative (04/13/18 = UA Nitrite) 12:21 AM) [facility] AND [id number] 06:21:00 Test Item Value Reference Range Interpretation Comments UA Bili (test code = Negative *NA*(12/14/18 UA Bili) 12:21 AM) [facility] [id number] 06:21:00 Test Item Value Reference Range Interpretation Comments UA pH (test code = UA pH) 7.0 1 5.0-8.0 [facility] [id number] 06:21:00 Test Item Value Reference Range Interpretation Comments UA Blood (test code = Negative (04/13/18 12:21 UA Blood) AM) [facility] [id number] 06:21:00 Test Item Value Reference Range Interpretation Comments UA Protein (test code Negative (04/13/18 = UA Protein) 12:21 AM) [facility] [id number] 06:21:00 Test Item Value Reference Range Interpretation Comments UA Sq Epi (test code = None Seen (04/13/18 UA Sq Epi) 12:21 AM) [facility] [id number] 06:21:00 Test Item Value Reference Range Interpretation Comments UA WBC (test code = 1 See_Comment [Automa abdelrahman message] The UA WBC) system which ge nerated this result transmit abdelrahman reference range : <=5. The reference range was not used to interpr et this result as gurpreet l/abnormal. [facility] [id number] 06:21:00 Test Item Value Reference Range Interpretation Comments UA RBC (test code = 1 See_Comment [Automa abdelrahman message] The UA RBC) system which ge nerated this result transmit abdelrahman reference range : <=2. The reference range was not used to interpr et this result as gurpreet l/abnormal. [facility] AND [id number] 06:21:00 Test Item Value Reference Range Interpretation Comments UA Snover Yeast (test code = UA Occasional /HPF Snover Yeast) [facility] AND [id number] 06:21:00 Test Item Value Reference Range Interpretation Comments UA Color (test code = UA Color) Ltyellow [facility] AND [id number] 06:21:00 Test Item Value Reference Range Interpretation Comments UA Spec Grav (test code = UA Spec 1.009 1 Grav) [facility] AND [id number] 06:21:00 Test Item Value Reference Range Interpretation Comments UA Turbidity (test code = Clear (04/13/18 UA Turbidity) 12:21 AM) [facility] [id number] 06:21:00 Test Item Value Reference Range Interpretation Comments UA Urobilinogen (test code = UA no gt 0.1-1.0 Urobilinogen) [facility] AND [id number] 06:21:00 Test Item Value Reference Range Interpretation Comments UA Ketones (test code Negative *NA*(04/13/18 = UA Ketones) 12:21 AM) [facility] AND [id number] 06:21:00 Test Item Value Reference Range Interpretation Comments UA Glucose (test code Negative *NA*(04/13/18 = UA Glucose) 12:21 AM) [facility] AND [id number] 06:21:00 Test Item Value Reference Range Interpretation Comments UA Leuk Est (test code Trace *ABN*(04/13/18 = UA Leuk Est) 12:21 AM) [facility] AND [id number] 06:21:00 Test Item Value Reference Range Interpretation Comments UA Nitrite (test code Negative (04/13/18 = UA Nitrite) 12:21 AM) [facility] [id number] 05:42:00 Test Item Value Reference Range Interpretation Comments Troponin-I (test code no gt See_Comment [Auto mated message] The = Troponin-I) system which g enerated this result transmit abdelrahman reference range : <=0.40. The reference r annemarie was not used to interpr et this result as gurpreet l/abnormal. [facility] [id number] 05:42:00 Test Item Value Reference Range Interpretation Comments HIV Ag/Ab 4th Gen Negative *NA*(04/12/18 (test code = HIV 11:42 PM) Ag/Ab 4th Gen) [facility] [id number] 05:42:00 Test Item Value Reference Range Interpretation Comments Troponin-I (test code no gt See_Comment [Auto mated message] The = Troponin-I) system which g enerated this result transmit abdelrahman reference range : <=0.40. The reference r annemarie was not used to interpr et this result as gurpreet l/abnormal. [facility] [id number] 05:42:00 Test Item Value Reference Range Interpretation Comments HIV Ag/Ab 4th Gen Negative *NA*(04/12/18 (test code = HIV 11:42 PM) Ag/Ab 4th Gen) [facility] [employer]2018-12-14 05:42:00 Test Item Value Reference Range Interpretation Comments Troponin-I (test code no gt See_Comment [Auto mated message] The = Troponin-I) system which g enerated this result transmit abdelrahman reference range : <=0.40. The reference r annemarie was not used to interpr et this result as gurpreet l/abnormal. [facility] [id number] 05:42:00 Test Item Value Reference Range Interpretation Comments HIV Ag/Ab 4th Gen Negative *NA*(04/12/18 (test code = HIV 11:42 PM) Ag/Ab 4th Gen) [facility] [employer]2018-12-14 05:42:00 Test Item Value Reference Range Interpretation Comments Troponin-I (test code no gt See_Comment [Auto mated message] The = Troponin-I) system which g enerated this result transmit abdelrahman reference range : <=0.40. The reference r annemarie was not used to interpr et this result as gurpreet l/abnormal. [facility] [id number] 05:42:00 Test Item Value Reference Range Interpretation Comments HIV Ag/Ab 4th Gen Negative *NA*(04/12/18 (test code = HIV 11:42 PM) Ag/Ab 4th Gen) [facility] [employer]2018-12-14 05:42:00 Test Item Value Reference Range Interpretation Comments Troponin-I (test code no gt See_Comment [Auto mated message] The = Troponin-I) system which g enerated this result transmit abdelrahman reference range : <=0.40. The reference r annemarie was not used to interpr et this result as gurpreet l/abnormal. [facility] [id number] 05:42:00 Test Item Value Reference Range Interpretation Comments HIV Ag/Ab 4th Gen Negative *NA*(04/12/18 (test code = HIV 11:42 PM) Ag/Ab 4th Gen) [facility] [employer]2018-12-14 05:42:00 Test Item Value Reference Range Interpretation Comments Troponin-I (test code no gt See_Comment [Auto mated message] The = Troponin-I) system which g enerated this result transmit abdelrahman reference range : <=0.40. The reference r annemarie was not used to interpr et this result as gurpreet l/abnormal. [facility] [id number] 05:42:00 Test Item Value Reference Range Interpretation Comments HIV Ag/Ab 4th Gen Negative *NA*(04/12/18 (test code = HIV 11:42 PM) Ag/Ab 4th Gen) [facility] [id number] 05:18:00 Test Item Value Reference Range Interpretation Comments MRSA by PCR (test Negative (04/12/18 11:18 code = MRSA by PCR) PM) [facility] [id number] 05:18:00 Test Item Value Reference Range Interpretation Comments MRSA by PCR (test Negative (04/12/18 11:18 code = MRSA by PCR) PM) [facility] [id number] 05:18:00 Test Item Value Reference Range Interpretation Comments MRSA by PCR (test Negative (04/12/18 11:18 code = MRSA by PCR) PM) [facility] [id number] 05:18:00 Test Item Value Reference Range Interpretation Comments MRSA by PCR (test Negative (04/12/18 11:18 code = MRSA by PCR) PM) [facility] - [id number] 05:18:00 Test Item Value Reference Range Interpretation Comments MRSA by PCR (test Negative (04/12/18 11:18 code = MRSA by PCR) PM) [facility] - [id number] 05:18:00 Test Item Value Reference Range Interpretation Comments MRSA by PCR (test Negative (04/12/18 11:18 code = MRSA by PCR) PM) [facility] [id number] 23:22:00 Test Item Value Reference Range Interpretation Comments U Odalys Scr (test code Negative *NA*(04/12/18 = U Odalys Scr) 5:22 PM) [facility] [id number] 23:22:00 Test Item Value Reference Range Interpretation Comments U Benzodiaz Scr (test Negative *NA*(04/12/18 code = U Benzodiaz Scr) 5:22 PM) [id number] 23:22:00 Test Item Value Reference Range Interpretation Comments U Amph Scr (test code Negative *NA*(04/12/18 = U Amph Scr) 5:22 PM) [facility] [id number] 23:22:00 Test Item Value Reference Range Interpretation Comments U Cocaine Scr (test Negative *NA*(04/12/18 code = U Cocaine Scr) 5:22 PM) [facility] [id number] 23:22:00 Test Item Value Reference Range Interpretation Comments U Opiate Scr (test Negative *NA*(04/12/18 code = U Opiate Scr) 5:22 PM) [facility] [id number] 23:22:00 Test Item Value Reference Range Interpretation Comments UDS Note (test code = See Note (04/12/18 5:22 UDS Note) PM) [facility] [id number] 23:22:00 Test Item Value Reference Range Interpretation Comments U Cannab Scr (test Negative *NA*(04/12/18 code = U Cannab Scr) 5:22 PM) [facility] [id number] 23:22:00 Test Item Value Reference Range Interpretation Comments U Phencyclidine Scr (test Negative code = U Phencyclidine *NA*(04/12/18 5:22 Scr) PM) [facility] [id number] 23:22:00 Test Item Value Reference Range Interpretation Comments U Odalys Scr (test code Negative *NA*(04/12/18 = U Odalys Scr) 5:22 PM) [facility] [id number] 23:22:00 Test Item Value Reference Range Interpretation Comments U Benzodiaz Scr (test Negative *NA*(04/12/18 code = U Benzodiaz Scr) 5:22 PM) [facility] [id number] 23:22:00 Test Item Value Reference Range Interpretation Comments U Amph Scr (test code Negative *NA*(04/12/18 = U Amph Scr) 5:22 PM) [facility] [id number] 23:22:00 Test Item Value Reference Range Interpretation Comments U Cocaine Scr (test Negative *NA*(04/12/18 code = U Cocaine Scr) 5:22 PM) [facility] [id number] 23:22:00 Test Item Value Reference Range Interpretation Comments U Opiate Scr (test Negative *NA*(04/12/18 code = U Opiate Scr) 5:22 PM) [facility] [id number] 23:22:00 Test Item Value Reference Range Interpretation Comments UDS Note (test code = See Note (04/12/18 5:22 UDS Note) PM) [facility] [id number] 23:22:00 Test Item Value Reference Range Interpretation Comments U Cannab Scr (test Negative *NA*(04/12/18 code = U Cannab Scr) 5:22 PM) [facility] [id number] 23:22:00 Test Item Value Reference Range Interpretation Comments U Phencyclidine Scr (test Negative code = U Phencyclidine *NA*(04/12/18 5:22 Scr) PM) [facility] [id number] 23:22:00 Test Item Value Reference Range Interpretation Comments U Odalys Scr (test code Negative *NA*(04/12/18 = U Odalys Scr) 5:22 PM) [facility] [id number] 23:22:00 Test Item Value Reference Range Interpretation Comments U Benzodiaz Scr (test Negative *NA*(04/12/18 code = U Benzodiaz Scr) 5:22 PM) [facility] [id number] 23:22:00 Test Item Value Reference Range Interpretation Comments U Amph Scr (test code Negative *NA*(04/12/18 = U Amph Scr) 5:22 PM) [facility] [id number] 23:22:00 Test Item Value Reference Range Interpretation Comments U Cocaine Scr (test Negative *NA*(04/12/18 code = U Cocaine Scr) 5:22 PM) [facility] [id number] 23:22:00 Test Item Value Reference Range Interpretation Comments U Opiate Scr (test Negative *NA*(04/12/18 code = U Opiate Scr) 5:22 PM) [facility] [id number] 23:22:00 Test Item Value Reference Range Interpretation Comments UDS Note (test code = See Note (04/12/18 5:22 UDS Note) PM) [facility] [id number] 23:22:00 Test Item Value Reference Range Interpretation Comments U Cannab Scr (test Negative *NA*(04/12/18 code = U Cannab Scr) 5:22 PM) [facility] [id number] 23:22:00 Test Item Value Reference Range Interpretation Comments U Phencyclidine Scr (test Negative code = U Phencyclidine *NA*(04/12/18 5:22 Scr) PM) [facility] [id number] 23:22:00 Test Item Value Reference Range Interpretation Comments U Odalys Scr (test code Negative *NA*(04/12/18 = U Odalys Scr) 5:22 PM) [facility] [id number] 23:22:00 Test Item Value Reference Range Interpretation Comments U Benzodiaz Scr (test Negative *NA*(04/12/18 code = U Benzodiaz Scr) 5:22 PM) [facility] [id number] 23:22:00 Test Item Value Reference Range Interpretation Comments U Amph Scr (test code Negative *NA*(04/12/18 = U Amph Scr) 5:22 PM) [facility] [id number] 23:22:00 Test Item Value Reference Range Interpretation Comments U Cocaine Scr (test Negative *NA*(04/12/18 code = U Cocaine Scr) 5:22 PM) [facility] [id number] 23:22:00 Test Item Value Reference Range Interpretation Comments U Opiate Scr (test Negative *NA*(04/12/18 code = U Opiate Scr) 5:22 PM) [facility] [id number] 23:22:00 Test Item Value Reference Range Interpretation Comments UDS Note (test code = See Note (04/12/18 5:22 UDS Note) PM) [facility] [id number] 23:22:00 Test Item Value Reference Range Interpretation Comments U Cannab Scr (test Negative *NA*(04/12/18 code = U Cannab Scr) 5:22 PM) [facility] [id number] 23:22:00 Test Item Value Reference Range Interpretation Comments U Phencyclidine Scr (test Negative code = U Phencyclidine *NA*(04/12/18 5:22 Scr) PM) [facility] [id number] 23:22:00 Test Item Value Reference Range Interpretation Comments U Odalys Scr (test code Negative *NA*(04/12/18 = U Odalys Scr) 5:22 PM) [facility] [id number] 23:22:00 Test Item Value Reference Range Interpretation Comments U Benzodiaz Scr (test Negative *NA*(04/12/18 code = U Benzodiaz Scr) 5:22 PM) [facility] [id number] 23:22:00 Test Item Value Reference Range Interpretation Comments U Amph Scr (test code Negative *NA*(04/12/18 = U Amph Scr) 5:22 PM) [facility] [id number] 23:22:00 Test Item Value Reference Range Interpretation Comments U Cocaine Scr (test Negative *NA*(04/12/18 code = U Cocaine Scr) 5:22 PM) [facility] [id number] 23:22:00 Test Item Value Reference Range Interpretation Comments U Opiate Scr (test Negative *NA*(04/12/18 code = U Opiate Scr) 5:22 PM) [facility] [id number] 23:22:00 Test Item Value Reference Range Interpretation Comments UDS Note (test code = See Note (04/12/18 5:22 UDS Note) PM) [facility] [id number] 23:22:00 Test Item Value Reference Range Interpretation Comments U Cannab Scr (test Negative *NA*(04/12/18 code = U Cannab Scr) 5:22 PM) [facility] [id number] 23:22:00 Test Item Value Reference Range Interpretation Comments U Phencyclidine Scr (test Negative code = U Phencyclidine *NA*(04/12/18 5:22 Scr) PM) [facility] [id number] 23:22:00 Test Item Value Reference Range Interpretation Comments U Odalys Scr (test code Negative *NA*(04/12/18 = U Odalys Scr) 5:22 PM) [facility] [id number] 23:22:00 Test Item Value Reference Range Interpretation Comments U Benzodiaz Scr (test Negative *NA*(04/12/18 code = U Benzodiaz Scr) 5:22 PM) [facility] [id number] 23:22:00 Test Item Value Reference Range Interpretation Comments U Amph Scr (test code Negative *NA*(04/12/18 = U Amph Scr) 5:22 PM) [facility] [id number] 23:22:00 Test Item Value Reference Range Interpretation Comments U Cocaine Scr (test Negative *NA*(04/12/18 code = U Cocaine Scr) 5:22 PM) [facility] [id number] 23:22:00 Test Item Value Reference Range Interpretation Comments U Opiate Scr (test Negative *NA*(04/12/18 code = U Opiate Scr) 5:22 PM) [facility] [id number] 23:22:00 Test Item Value Reference Range Interpretation Comments UDS Note (test code = See Note (04/12/18 5:22 UDS Note) PM) [facility] [id number] 23:22:00 Test Item Value Reference Range Interpretation Comments U Cannab Scr (test Negative *NA*(04/12/18 code = U Cannab Scr) 5:22 PM) [facility] [id number] 23:22:00 Test Item Value Reference Range Interpretation Comments U Phencyclidine Scr (test Negative code = U Phencyclidine *NA*(04/12/18 5:22 Scr) PM) [facility] [id number] 22:38:00 Test Item Value Reference Range Interpretation Comments Troponin-I (test code 0.02 See_Comment [Auto mated message] The = Troponin-I) system which g enerated this result transmit abdelrahman reference range : <=0.40. The reference r annemarie was not used to interpr et this result as gurpreet l/abnormal. [facility] [id number] 22:38:00 Test Item Value Reference Range Interpretation Comments Total CK (test code = Total CK) 50 12-191 [facility] [id number] 22:38:00 Test Item Value Reference Range Interpretation Comments eGFR (test code = eGFR) 120 [facility] [id number] 22:38:00 Test Item Value Reference Range Interpretation Comments AST (test code = AST) 17 See_Comment [Auto mated message] The system which ge nerated this result transmit abdelrahman reference range : <=37. The reference range was not used to interpr et this result as gurpreet l/abnormal. [facility]2018-12-13 22:38:00 Test Item Value Reference Range Interpretation Comments ALT (test code = ALT) 23 See_Comment [Auto mated message] The system which ge nerated this result transmit abdelrahman reference range : <=65. The reference range was not used to interpr et this result as gurpreet l/abnormal. [facility]2018-12-13 22:38:00 Test Item Value Reference Range Interpretation Comments Albumin Lvl (test code = Albumin Lvl) 4.0 3.5-5.0 [facility]2018-12-13 22:38:00 Test Item Value Reference Range Interpretation Comments Total Protein (test code = Total 7.4 6.4-8.4 Protein) [facility]2018-12-13 22:38:00 Test Item Value Reference Range Interpretation Comments Bili Total (test code = Bili Total) 0.3 0.2-1.3 [facility]2018-12-13 22:38:00 Test Item Value Reference Range Interpretation Comments Alk Phos (test code = Alk Phos) 35 39-136 [facility]2018-12-13 22:38:00 Test Item Value Reference Range Interpretation Comments Chloride Lvl (test code = Chloride Lvl) 103 95-109 [facility]2018-12-13 22:38:00 Test Item Value Reference Range Interpretation Comments Calcium Lvl (test code = Calcium Lvl) 9.4 8.5-10.5 [facility]2018-12-13 22:38:00 Test Item Value Reference Range Interpretation Comments CO2 (test code = CO2) 32 24-32 [facility]2018-12-13 22:38:00 Test Item Value Reference Range Interpretation Comments Potassium Lvl (test code = Potassium 4.2 3.5-5.1 Lvl) [facility]2018-12-13 22:38:00 Test Item Value Reference Range Interpretation Comments Sodium Lvl (test code = Sodium Lvl) 139 135-145 [facility]2018-12-13 22:38:00 Test Item Value Reference Range Interpretation Comments Creatinine Lvl (test code = Creatinine 0.80 0.50-1.40 Lvl) [facility]2018-12-13 22:38:00 Test Item Value Reference Range Interpretation Comments BUN (test code = BUN) 12 7-22 [facility]2018-12-13 22:38:00 Test Item Value Reference Range Interpretation Comments Glucose Lvl (test code = Glucose Lvl) 93 70-99 [facility]2018-12-13 22:38:00 Test Item Value Reference Range Interpretation Comments A/G Ratio (test code = A/G Ratio) 1.2 1 0.7-1.6 [facility]2018-12-13 22:38:00 Test Item Value Reference Range Interpretation Comments Globulin (test code = Globulin) 3.4 2.7-4.2 [facility]2018-12-13 22:38:00 Test Item Value Reference Range Interpretation Comments B/C Ratio (test code = B/C Ratio) 15 1 6-25 [facility]2018-12-13 22:38:00 Test Item Value Reference Range Interpretation Comments AGAP (test code = AGAP) 8.2 10.0-20.0 [id number] 22:38:00 Test Item Value Reference Range Interpretation Comments MCHC (test code = MCHC) 32.1 32.0-36.0 [facility] [id number] 22:38:00 Test Item Value Reference Range Interpretation Comments MCH (test code = MCH) 27.4 pg 27.0-31.0 [facility] Cy[id number] 22:38:00 Test Item Value Reference Range Interpretation Comments Platelet (test code = Platelet) 200 133-450 [facility] Cy[id number] 22:38:00 Test Item Value Reference Range Interpretation Comments RDW (test code = RDW) 14.4 11.5-14.5 [facility] Cy[id number] 22:38:00 Test Item Value Reference Range Interpretation Comments MPV (test code = MPV) 9.1 7.4-10.4 [facility] Cypre[id number] 22:38:00 Test Item Value Reference Range Interpretation Comments WBC (test code = WBC) 14.0 3.7-10.4 [facility] Cypre[id number] 22:38:00 Test Item Value Reference Range Interpretation Comments RBC (test code = RBC) 5.18 4.70-6.10 [facility] Cypre[id number] 22:38:00 Test Item Value Reference Range Interpretation Comments Hgb (test code = Hgb) 14.2 14.0-18.0 [facility] CypressWtoulbyJNHHJGWECS7664-40-11 22:38:00 Test Item Value Reference Range Interpretation Comments Hct (test code = Hct) 44.2 42.0-54.0 [facility] CypressIdgqzedJBIMYDWGAB6230-15-79 22:38:00 Test Item Value Reference Range Interpretation Comments MCV (test code = MCV) 85.3 80.0-94.0 [facility] Cypre[id number] 22:38:00 Test Item Value Reference Range Interpretation Comments Basophils (test code = 0.2 See_Comment [Aut omated message] The Basophils) system which ge nerated this result tra nsmitted reference range : <=1.0. The reference r annemarie was not used to int erpret this result as normal/abnormal . [facility] Cypre[id number] 22:38:00 Test Item Value Reference Range Interpretation Comments Eosinophils (test code = 0.1 See_Comment [A utomated message] The Eosinophils) system which ge nerated this result tra nsmitted reference range : <=4.0. The reference r annemarie was not used to int erpret this result as normal/abnormal . [facility] CypressLpqjtjsKASYVEPIFX8517-33-47 22:38:00 Test Item Value Reference Range Interpretation Comments Monocytes (test code = Monocytes) 2.7 2.0-12.0 [facility] CypressPxpxvgeYBFKLPCUPS2564-09-38 22:38:00 Test Item Value Reference Range Interpretation Comments Monocytes # (test code 0.4 See_Comment [Aut omated message] The = Monocytes #) system which generated this result tra nsmitted reference range : <=0.8. The reference r annemarie was not used to int erpret this result as normal/abnormal . [facility] CypressPhigukrLSNGWFYGKS0325-02-16 22:38:00 Test Item Value Reference Range Interpretation Comments Lymphocytes # (test code = Lymphocytes 0.6 1.0-5.5 #) [facility] CypressSnfvsqnAZDUASXWHD5617-05-23 22:38:00 Test Item Value Reference Range Interpretation Comments Neutrophils # (test code = Neutrophils 13.0 1.5-8.1 #) [id number] 22:38:00 Test Item Value Reference Range Interpretation Comments Lymphocytes (test code = Lymphocytes) 4.1 20.0-40.0 [id number] 22:38:00 Test Item Value Reference Range Interpretation Comments Eosinophils # (test code 0.0 See_Comment [A utomated message] The = Eosinophils #) system whic h generated this result tra nsmitted reference range : <=0.5. The reference r annemarie was not used to int erpret this result as normal/abnormal . [facility] CypressTifegkkQCNMKNZMJU0845-01-95 22:38:00 Test Item Value Reference Range Interpretation Comments Basophils # (test code 0.0 See_Comment [Aut omated message] The = Basophils #) system which generated this result tra nsmitted reference range : <=0.2. The reference r annemarie was not used to int erpret this result as normal/abnormal . [facility]inteDsqiocxIFRBWQYYIL2145-31-05 22:38:00 Test Item Value Reference Range Interpretation Comments RBC Morph (test code = Normal (04/12/18 4:38 RBC Morph) PM) [facility] CypressPatayftBNOGOFTHZK7304-67-69 22:38:00 Test Item Value Reference Range Interpretation Comments Plt Morph (test code = Normal (04/12/18 4:38 Plt Morph) PM) [facility] CypressQarbpfpYUIQCCNQYB4325-08-96 22:38:00 Test Item Value Reference Range Interpretation Comments Segs (test code = Segs) 92.9 45.0-75.0 [facility]inteLbyqeycEURRBEOBZI8059-72-30 22:38:00 Test Item Value Reference Range Interpretation Comments Large Plt (test code Moderate *ABN*(04/12/18 = Large Plt) 4:38 PM) [facility] [id number] 22:38:00 Test Item Value Reference Range Interpretation Comments Troponin-I (test code 0.02 See_Comment [Auto mated message] The = Troponin-I) system which g enerated this result transmit abdelrahman reference range : <=0.40. The reference r annemarie was not used to interpr et this result as gurpreet l/abnormal. [facility] [id number] 22:38:00 Test Item Value Reference Range Interpretation Comments Total CK (test code = Total CK) 50 12-191 [facility]2018-12-13 22:38:00 Test Item Value Reference Range Interpretation Comments eGFR (test code = eGFR) 120 [facility]2018-12-13 22:38:00 Test Item Value Reference Range Interpretation Comments AST (test code = AST) 17 See_Comment [Auto mated message] The system which ge nerated this result transmit abdelrahman reference range : <=37. The reference range was not used to interpr et this result as gurpreet l/abnormal. [facility]2018-12-13 22:38:00 Test Item Value Reference Range Interpretation Comments ALT (test code = ALT) 23 See_Comment [Auto mated message] The system which ge nerated this result transmit abdelrahman reference range : <=65. The reference range was not used to interpr et this result as gurpreet l/abnormal. [facility]2018-12-13 22:38:00 Test Item Value Reference Range Interpretation Comments Albumin Lvl (test code = Albumin Lvl) 4.0 3.5-5.0 [facility]2018-12-13 22:38:00 Test Item Value Reference Range Interpretation Comments Total Protein (test code = Total 7.4 6.4-8.4 Protein) [facility]2018-12-13 22:38:00 Test Item Value Reference Range Interpretation Comments Bili Total (test code = Bili Total) 0.3 0.2-1.3 [facility]2018-12-13 22:38:00 Test Item Value Reference Range Interpretation Comments Alk Phos (test code = Alk Phos) 35 39-136 [facility]2018-12-13 22:38:00 Test Item Value Reference Range Interpretation Comments Chloride Lvl (test code = Chloride Lvl) 103 95-109 [facility]2018-12-13 22:38:00 Test Item Value Reference Range Interpretation Comments Calcium Lvl (test code = Calcium Lvl) 9.4 8.5-10.5 [place] [id number] 22:38:00 Test Item Value Reference Range Interpretation Comments CO2 (test code = CO2) 32 24-32 [facility]2018-12-13 22:38:00 Test Item Value Reference Range Interpretation Comments Potassium Lvl (test code = Potassium 4.2 3.5-5.1 Lvl) [facility]2018-12-13 22:38:00 Test Item Value Reference Range Interpretation Comments Sodium Lvl (test code = Sodium Lvl) 139 135-145 [facility]2018-12-13 22:38:00 Test Item Value Reference Range Interpretation Comments Creatinine Lvl (test code = Creatinine 0.80 0.50-1.40 Lvl) [facility]2018-12-13 22:38:00 Test Item Value Reference Range Interpretation Comments BUN (test code = BUN) 12 7-22 [facility]2018-12-13 22:38:00 Test Item Value Reference Range Interpretation Comments Glucose Lvl (test code = Glucose Lvl) 93 70-99 [facility]2018-12-13 22:38:00 Test Item Value Reference Range Interpretation Comments A/G Ratio (test code = A/G Ratio) 1.2 1 0.7-1.6 [facility]2018-12-13 22:38:00 Test Item Value Reference Range Interpretation Comments Globulin (test code = Globulin) 3.4 2.7-4.2 [facility]2018-12-13 22:38:00 Test Item Value Reference Range Interpretation Comments B/C Ratio (test code = B/C Ratio) 15 1 6-25 [facility]2018-12-13 22:38:00 Test Item Value Reference Range Interpretation Comments AGAP (test code = AGAP) 8.2 10.0-20.0 [facility] CypressTccmnttNGGIGYSELR3836-07-93 22:38:00 Test Item Value Reference Range Interpretation Comments MCHC (test code = MCHC) 32.1 32.0-36.0 [facility] CypressPnxpdmaODWEUXDKVQ7583-47-50 22:38:00 Test Item Value Reference Range Interpretation Comments MCH (test code = MCH) 27.4 pg 27.0-31.0 [facility] CypressTsicfamCSBJQCOLXM1125-13-71 22:38:00 Test Item Value Reference Range Interpretation Comments Platelet (test code = Platelet) 200 133-450 [facility] CypressJrelkswHJCBWEGHIX1806-37-86 22:38:00 Test Item Value Reference Range Interpretation Comments RDW (test code = RDW) 14.4 11.5-14.5 [facility] CypressRdimiljYSWBRSNCRQ3440-46-46 22:38:00 Test Item Value Reference Range Interpretation Comments MPV (test code = MPV) 9.1 7.4-10.4 [facility] CypressDlmudhtTUBUBMUSAF8311-54-93 22:38:00 Test Item Value Reference Range Interpretation Comments WBC (test code = WBC) 14.0 3.7-10.4 [facility] CypressLiprcofIJIMJERHDB9122-59-54 22:38:00 Test Item Value Reference Range Interpretation Comments RBC (test code = RBC) 5.18 4.70-6.10 [facility] CypressAfxufyrGZXEZPLDBJ7074-38-45 22:38:00 Test Item Value Reference Range Interpretation Comments Hgb (test code = Hgb) 14.2 14.0-18.0 [facility] CypressZxyjaswUEXZINUMQD0521-04-60 22:38:00 Test Item Value Reference Range Interpretation Comments Hct (test code = Hct) 44.2 42.0-54.0 [facility] CypressNpfjvzoYTIAKUEDER2907-36-62 22:38:00 Test Item Value Reference Range Interpretation Comments MCV (test code = MCV) 85.3 80.0-94.0 [facility] CypressFswvssvUEVPOCOMZU9009-34-79 22:38:00 Test Item Value Reference Range Interpretation Comments Basophils (test code = 0.2 See_Comment [Aut omated message] The Basophils) system which ge nerated this result tra nsmitted reference range : <=1.0. The reference r annemarie was not used to int erpret this result as normal/abnormal . [facility] CypressLaxnqzpFRNBEEKDYZ6739-20-20 22:38:00 Test Item Value Reference Range Interpretation Comments Eosinophils (test code = 0.1 See_Comment [A utomated message] The Eosinophils) system which ge nerated this result tra nsmitted reference range : <=4.0. The reference r annemarie was not used to int erpret this result as normal/abnormal . [facility] CypressNixpoxnHVMKUELXBE6473-54-42 22:38:00 Test Item Value Reference Range Interpretation Comments Monocytes (test code = Monocytes) 2.7 2.0-12.0 [facility] CypressWoaifspSYGCMFVIMY1126-26-68 22:38:00 Test Item Value Reference Range Interpretation Comments Monocytes # (test code 0.4 See_Comment [Aut omated message] The = Monocytes #) system which generated this result tra nsmitted reference range : <=0.8. The reference r annemarie was not used to int erpret this result as normal/abnormal . [facility] CypressVpwbpbyEGJYIIVGXA3266-57-52 22:38:00 Test Item Value Reference Range Interpretation Comments Lymphocytes # (test code = Lymphocytes 0.6 1.0-5.5 #) [facility] CypressXzcuxcbQXHFRADDSG5586-64-15 22:38:00 Test Item Value Reference Range Interpretation Comments Neutrophils # (test code = Neutrophils 13.0 1.5-8.1 #) [facility] CypressXrptfxhHLBIKQDPBM1416-61-47 22:38:00 Test Item Value Reference Range Interpretation Comments Lymphocytes (test code = Lymphocytes) 4.1 20.0-40.0 [facility] [place]re[id number] 22:38:00 Test Item Value Reference Range Interpretation Comments Eosinophils # (test code 0.0 See_Comment [A utomated message] The = Eosinophils #) system whic h generated this result tra nsmitted reference range : <=0.5. The reference r annemarie was not used to int erpret this result as normal/abnormal . [facility] CypressFofmbitYHFUUGQHLZ3876-16-33 22:38:00 Test Item Value Reference Range Interpretation Comments Basophils # (test code 0.0 See_Comment [Aut omated message] The = Basophils #) system which generated this result tra nsmitted reference range : <=0.2. The reference r annemarie was not used to int erpret this result as normal/abnormal . [facility] CypressCaklccrPXZNGHDCUF1185-20-21 22:38:00 Test Item Value Reference Range Interpretation Comments RBC Morph (test code = Normal (04/12/18 4:38 RBC Morph) PM) [facility] Cypre[id number] 22:38:00 Test Item Value Reference Range Interpretation Comments Plt Morph (test code = Normal (04/12/18 4:38 Plt Morph) PM) [facility] CypressXnsrycpVGJYWBZHKC8876-60-00 22:38:00 Test Item Value Reference Range Interpretation Comments Segs (test code = Segs) 92.9 45.0-75.0 [facility] CypressQcineiyMJNUCCZUTF2095-12-11 22:38:00 Test Item Value Reference Range Interpretation Comments Large Plt (test code Moderate *ABN*(04/12/18 = Large Plt) 4:38 PM) [facility] [id number] 22:38:00 Test Item Value Reference Range Interpretation Comments Troponin-I (test code 0.02 See_Comment [Auto mated message] The = Troponin-I) system which g enerated this result transmit abdelrahman reference range : <=0.40. The reference r annemarie was not used to interpr et this result as gurpreet l/abnormal. [facility] [id number] 22:38:00 Test Item Value Reference Range Interpretation Comments Total CK (test code = Total CK) 50 12-191 [facility] [id number] 22:38:00 Test Item Value Reference Range Interpretation Comments eGFR (test code = eGFR) 120 [facility] [employer] [id number] 22:38:00 Test Item Value Reference Range Interpretation Comments AST (test code = AST) 17 See_Comment [Auto mated message] The system which ge nerated this result transmit abdelrahman reference range : <=37. The reference range was not used to interpr et this result as gurpreet l/abnormal. [facility] [employer] [id number] 22:38:00 Test Item Value Reference Range Interpretation Comments ALT (test code = ALT) 23 See_Comment [Auto mated message] The system which ge nerated this result transmit abdelrahman reference range : <=65. The reference range was not used to interpr et this result as gurpreet l/abnormal. [facility] [id number] 22:38:00 Test Item Value Reference Range Interpretation Comments Albumin Lvl (test code = Albumin Lvl) 4.0 3.5-5.0 [facility] [id number] 22:38:00 Test Item Value Reference Range Interpretation Comments Total Protein (test code = Total 7.4 6.4-8.4 Protein) [facility] [id number] 22:38:00 Test Item Value Reference Range Interpretation Comments Bili Total (test code = Bili Total) 0.3 0.2-1.3 [facility] [id number] 22:38:00 Test Item Value Reference Range Interpretation Comments Alk Phos (test code = Alk Phos) 35 39-136 [facility] [id number] 22:38:00 Test Item Value Reference Range Interpretation Comments Chloride Lvl (test code = Chloride Lvl) 103 95-109 [facility]2018-12-13 22:38:00 Test Item Value Reference Range Interpretation Comments Calcium Lvl (test code = Calcium Lvl) 9.4 8.5-10.5 [facility]2018-12-13 22:38:00 Test Item Value Reference Range Interpretation Comments CO2 (test code = CO2) 32 24-32 [facility]2018-12-13 22:38:00 Test Item Value Reference Range Interpretation Comments Potassium Lvl (test code = Potassium 4.2 3.5-5.1 Lvl) [facility]2018-12-13 22:38:00 Test Item Value Reference Range Interpretation Comments Sodium Lvl (test code = Sodium Lvl) 139 135-145 [facility]2018-12-13 22:38:00 Test Item Value Reference Range Interpretation Comments Creatinine Lvl (test code = Creatinine 0.80 0.50-1.40 Lvl) [facility]2018-12-13 22:38:00 Test Item Value Reference Range Interpretation Comments BUN (test code = BUN) 12 7-22 [facility]2018-12-13 22:38:00 Test Item Value Reference Range Interpretation Comments Glucose Lvl (test code = Glucose Lvl) 93 70-99 [facility]2018-12-13 22:38:00 Test Item Value Reference Range Interpretation Comments A/G Ratio (test code = A/G Ratio) 1.2 1 0.7-1.6 [facility]2018-12-13 22:38:00 Test Item Value Reference Range Interpretation Comments Globulin (test code = Globulin) 3.4 2.7-4.2 [facility]2018-12-13 22:38:00 Test Item Value Reference Range Interpretation Comments B/C Ratio (test code = B/C Ratio) 15 1 6-25 [facility]2018-12-13 22:38:00 Test Item Value Reference Range Interpretation Comments AGAP (test code = AGAP) 8.2 10.0-20.0 [facility] Cypre[id number] 22:38:00 Test Item Value Reference Range Interpretation Comments MCHC (test code = MCHC) 32.1 32.0-36.0 [place] [id number] 22:38:00 Test Item Value Reference Range Interpretation Comments MCH (test code = MCH) 27.4 pg 27.0-31.0 [facility] CypressIextkepLGARNDALTQ9427-83-18 22:38:00 Test Item Value Reference Range Interpretation Comments Platelet (test code = Platelet) 200 133-450 [facility] CypressVydfjijMBNAYENCRI6707-23-33 22:38:00 Test Item Value Reference Range Interpretation Comments RDW (test code = RDW) 14.4 11.5-14.5 [facility] CypressSivntgrJBYVHEPKOI8591-57-10 22:38:00 Test Item Value Reference Range Interpretation Comments MPV (test code = MPV) 9.1 7.4-10.4 [facility] CypressTwybnytDIZAHEZYWO3520-16-39 22:38:00 Test Item Value Reference Range Interpretation Comments WBC (test code = WBC) 14.0 3.7-10.4 [facility] CypressYxopnktUFJIZUHWUT3042-51-77 22:38:00 Test Item Value Reference Range Interpretation Comments RBC (test code = RBC) 5.18 4.70-6.10 [facility] CypressVqdeqcxJRLVHPYKLX0462-77-93 22:38:00 Test Item Value Reference Range Interpretation Comments Hgb (test code = Hgb) 14.2 14.0-18.0 [facility] CypressDdfajktVFAVONPWFC4621-66-35 22:38:00 Test Item Value Reference Range Interpretation Comments Hct (test code = Hct) 44.2 42.0-54.0 [facility] CypressGobqjerWHRCUUOOHR1553-55-11 22:38:00 Test Item Value Reference Range Interpretation Comments MCV (test code = MCV) 85.3 80.0-94.0 [facility] CypressBxooknsZUEAMORUSW8874-46-49 22:38:00 Test Item Value Reference Range Interpretation Comments Basophils (test code = 0.2 See_Comment [Aut omated message] The Basophils) system which ge nerated this result tra nsmitted reference range : <=1.0. The reference r annemarie was not used to int erpret this result as normal/abnormal . [facility] CypressPrqynkeSQFZJAPBRV5776-03-05 22:38:00 Test Item Value Reference Range Interpretation Comments Eosinophils (test code = 0.1 See_Comment [A utomated message] The Eosinophils) system which ge nerated this result tra nsmitted reference range : <=4.0. The reference r annemarie was not used to int erpret this result as normal/abnormal . [facility] CypressYmhppacHFFQBOJPSA2544-88-89 22:38:00 Test Item Value Reference Range Interpretation Comments Monocytes (test code = Monocytes) 2.7 2.0-12.0 [facility] CypressUhyzmiwUORXFJSORL2408-14-12 22:38:00 Test Item Value Reference Range Interpretation Comments Monocytes # (test code 0.4 See_Comment [Aut omated message] The = Monocytes #) system which generated this result tra nsmitted reference range : <=0.8. The reference r annemarie was not used to int erpret this result as normal/abnormal . [facility] CypressXsgtxxaWKLAGOPBVO8954-57-42 22:38:00 Test Item Value Reference Range Interpretation Comments Lymphocytes # (test code = Lymphocytes 0.6 1.0-5.5 #) [facility] CypressXoyairqCDNVNBTUDI3293-36-38 22:38:00 Test Item Value Reference Range Interpretation Comments Neutrophils # (test code = Neutrophils 13.0 1.5-8.1 #) [facility] CypressCekirmtEOOVVRCOYE9452-47-52 22:38:00 Test Item Value Reference Range Interpretation Comments Lymphocytes (test code = Lymphocytes) 4.1 20.0-40.0 [facility] CypressHvzemynJKQSSYPGHS1756-07-83 22:38:00 Test Item Value Reference Range Interpretation Comments Eosinophils # (test code 0.0 See_Comment [A utomated message] The = Eosinophils #) system whic h generated this result tra nsmitted reference range : <=0.5. The reference r annemarie was not used to int erpret this result as normal/abnormal . [facility] CypressGpnecxcOMSXDHXCTN0328-64-32 22:38:00 Test Item Value Reference Range Interpretation Comments Basophils # (test code 0.0 See_Comment [Aut omated message] The = Basophils #) system which generated this result tra nsmitted reference range : <=0.2. The reference r annemarie was not used to int erpret this result as normal/abnormal . [facility] CypressTuxzfnkDWUBWFHZRI5048-85-25 22:38:00 Test Item Value Reference Range Interpretation Comments RBC Morph (test code = Normal (04/12/18 4:38 RBC Morph) PM) [facility] CypressMurouhgCLKPPUUSMC9052-21-09 22:38:00 Test Item Value Reference Range Interpretation Comments Plt Morph (test code = Normal (04/12/18 4:38 Plt Morph) PM) [facility] TexasUpaytycYMGVRJRNOL9355-48-45 22:38:00 Test Item Value Reference Range Interpretation Comments Segs (test code = Segs) 92.9 45.0-75.0 [facility] CypressEhkgapbYMEIFHHRFM6079-37-25 22:38:00 Test Item Value Reference Range Interpretation Comments Large Plt (test code Moderate *ABN*(04/12/18 = Large Plt) 4:38 PM) [facility] TexasNegotiantEPHRA[facility] [id number] 22:38:00 Test Item Value Reference Range Interpretation Comments Troponin-I (test code 0.02 See_Comment [Auto mated message] The = Troponin-I) system which g enerated this result transmit abdelrahman reference range : <=0.40. The reference r annemarie was not used to interpr et this result as gurpreet l/abnormal. [facility] TexasNegotiantEPHRA[facility] [id number] 22:38:00 Test Item Value Reference Range Interpretation Comments Total CK (test code = Total CK) 50 12-191 [facility] TexasZachary Prell [id number] 22:38:00 Test Item Value Reference Range Interpretation Comments eGFR (test code = eGFR) 120 [facility] TexasZachary Prell [id number] 22:38:00 Test Item Value Reference Range Interpretation Comments AST (test code = AST) 17 See_Comment [Auto mated message] The system which ge nerated this result transmit abdelrahman reference range : <=37. The reference range was not used to interpr et this result as gurpreet l/abnormal. [facility] [id number] 22:38:00 Test Item Value Reference Range Interpretation Comments ALT (test code = ALT) 23 See_Comment [Auto mated message] The system which ge nerated this result transmit abdelrahman reference range : <=65. The reference range was not used to interpr et this result as gurpreet l/abnormal. [facility] TexasZach[facility] Prell [id number] 22:38:00 Test Item Value Reference Range Interpretation Comments Albumin Lvl (test code = Albumin Lvl) 4.0 3.5-5.0 [facility] TexasZ[facility] Prell [id number] 22:38:00 Test Item Value Reference Range Interpretation Comments Total Protein (test code = Total 7.4 6.4-8.4 Protein) [facility]2018-12-13 22:38:00 Test Item Value Reference Range Interpretation Comments Bili Total (test code = Bili Total) 0.3 0.2-1.3 [facility]2018-12-13 22:38:00 Test Item Value Reference Range Interpretation Comments Alk Phos (test code = Alk Phos) 35 39-136 [facility]2018-12-13 22:38:00 Test Item Value Reference Range Interpretation Comments Chloride Lvl (test code = Chloride Lvl) 103 95-109 [facility]2018-12-13 22:38:00 Test Item Value Reference Range Interpretation Comments Calcium Lvl (test code = Calcium Lvl) 9.4 8.5-10.5 [facility]2018-12-13 22:38:00 Test Item Value Reference Range Interpretation Comments CO2 (test code = CO2) 32 24-32 [facility]2018-12-13 22:38:00 Test Item Value Reference Range Interpretation Comments Potassium Lvl (test code = Potassium 4.2 3.5-5.1 Lvl) [facility]2018-12-13 22:38:00 Test Item Value Reference Range Interpretation Comments Sodium Lvl (test code = Sodium Lvl) 139 135-145 [facility]2018-12-13 22:38:00 Test Item Value Reference Range Interpretation Comments Creatinine Lvl (test code = Creatinine 0.80 0.50-1.40 Lvl) [facility]2018-12-13 22:38:00 Test Item Value Reference Range Interpretation Comments BUN (test code = BUN) 12 7-22 [facility]2018-12-13 22:38:00 Test Item Value Reference Range Interpretation Comments Glucose Lvl (test code = Glucose Lvl) 93 70-99 [facility]2018-12-13 22:38:00 Test Item Value Reference Range Interpretation Comments A/G Ratio (test code = A/G Ratio) 1.2 1 0.7-1.6 [facility]2018-12-13 22:38:00 Test Item Value Reference Range Interpretation Comments Globulin (test code = Globulin) 3.4 2.7-4.2 [facility]2018-12-13 22:38:00 Test Item Value Reference Range Interpretation Comments B/C Ratio (test code = B/C Ratio) 15 1 6-25 [facility]2018-12-13 22:38:00 Test Item Value Reference Range Interpretation Comments AGAP (test code = AGAP) 8.2 10.0-20.0 [facility] CypressDmnlaavQRSCJINMRS1456-66-96 22:38:00 Test Item Value Reference Range Interpretation Comments MCHC (test code = MCHC) 32.1 32.0-36.0 [facility] CypressCxjegabWNSUDPAOXL8153-81-70 22:38:00 Test Item Value Reference Range Interpretation Comments MCH (test code = MCH) 27.4 pg 27.0-31.0 [facility] CypressQmoqrvwMJKPBZQDCE1409-52-49 22:38:00 Test Item Value Reference Range Interpretation Comments Platelet (test code = Platelet) 200 133-450 [facility] CypressBwvofuyFHMZKUHMGW0405-57-96 22:38:00 Test Item Value Reference Range Interpretation Comments RDW (test code = RDW) 14.4 11.5-14.5 [facility] CypressGushmkzBVMJTZETOG3171-21-93 22:38:00 Test Item Value Reference Range Interpretation Comments MPV (test code = MPV) 9.1 7.4-10.4 [facility] CypressNksvcaqRIPNMVBHGK7905-43-52 22:38:00 Test Item Value Reference Range Interpretation Comments WBC (test code = WBC) 14.0 3.7-10.4 [facility] CypressOqrgtjtZRETGVGTZA4048-14-79 22:38:00 Test Item Value Reference Range Interpretation Comments RBC (test code = RBC) 5.18 4.70-6.10 [facility] CypressDihefpqUUACKDPNYG5328-52-67 22:38:00 Test Item Value Reference Range Interpretation Comments Hgb (test code = Hgb) 14.2 14.0-18.0 [facility] CypressXgkomewJYOAWVGLON7485-58-69 22:38:00 Test Item Value Reference Range Interpretation Comments Hct (test code = Hct) 44.2 42.0-54.0 [facility] CypressFcxsskiHAXLWSTVGS4202-67-86 22:38:00 Test Item Value Reference Range Interpretation Comments MCV (test code = MCV) 85.3 80.0-94.0 [facility] CypressLvvzlkeCIKBTDZYEM8483-70-80 22:38:00 Test Item Value Reference Range Interpretation Comments Basophils (test code = 0.2 See_Comment [Aut omated message] The Basophils) system which ge nerated this result tra nsmitted reference range : <=1.0. The reference r annemarie was not used to int erpret this result as normal/abnormal . [facility] CypressEmhgbpjGEYOXNFDEK1813-94-11 22:38:00 Test Item Value Reference Range Interpretation Comments Eosinophils (test code = 0.1 See_Comment [A utomated message] The Eosinophils) system which ge nerated this result tra nsmitted reference range : <=4.0. The reference r annemarie was not used to int erpret this result as normal/abnormal . [facility] CypressKlbugiiEGWCOQNKFU4639-45-09 22:38:00 Test Item Value Reference Range Interpretation Comments Monocytes (test code = Monocytes) 2.7 2.0-12.0 [facility] CypressPrseftjCBRKZOEMXD6284-29-08 22:38:00 Test Item Value Reference Range Interpretation Comments Monocytes # (test code 0.4 See_Comment [Aut omated message] The = Monocytes #) system which generated this result tra nsmitted reference range : <=0.8. The reference r annemarie was not used to int erpret this result as normal/abnormal . [facility] CypressLvpwehbNFHDJZJVQZ8642-49-79 22:38:00 Test Item Value Reference Range Interpretation Comments Lymphocytes # (test code = Lymphocytes 0.6 1.0-5.5 #) [facility] CypressUtirptkYATXUBCYJM6559-09-51 22:38:00 Test Item Value Reference Range Interpretation Comments Neutrophils # (test code = Neutrophils 13.0 1.5-8.1 #) [facility] CypressHffmrziERWNOZESGP4707-34-32 22:38:00 Test Item Value Reference Range Interpretation Comments Lymphocytes (test code = Lymphocytes) 4.1 20.0-40.0 [facility] CypressOhqhuyvZLXCEHCXSX3555-09-00 22:38:00 Test Item Value Reference Range Interpretation Comments Eosinophils # (test code 0.0 See_Comment [A utomated message] The = Eosinophils #) system [facility] generated this result tra nsmitted reference range : <=0.5. The reference r annemarie was not used to int erpret this result as normal/abnormal . [facility] CypressCimngmqLNRDFSEUKD3524-05-96 22:38:00 Test Item Value Reference Range Interpretation Comments Basophils # (test code 0.0 See_Comment [Aut omated message] The = Basophils #) system which generated this result tra nsmitted reference range : <=0.2. The reference r annemarie was not used to int erpret this result as normal/abnormal . [facility]BqcifwtQIVOQXCQKV5592-06-04 22:38:00 Test Item Value Reference Range Interpretation Comments RBC Morph (test code = Normal (04/12/18 4:38 RBC Morph) PM) [facility] HospitalIcjyqxjUPRMSRPYJC5397-79-80 22:38:00 Test Item Value Reference Range Interpretation Comments Plt Morph (test code = Normal (04/12/18 4:38 Plt Morph) PM) [facility] HospitalIrrvqpfHJUSXOXTER1582-25-83 22:38:00 Test Item Value Reference Range Interpretation Comments Segs (test code = Segs) 92.9 45.0-75.0 [facility] HospitalWstypunDDUUNBOCVT4454-18-77 22:38:00 Test Item Value Reference Range Interpretation Comments Large Plt (test code Moderate *ABN*(04/12/18 = Large Plt) 4:38 PM) [facility] [employer]2018-12-13 22:38:00 Test Item Value Reference Range Interpretation Comments Troponin-I (test code 0.02 See_Comment [Auto mated message] The = Troponin-I) system which g enerated this result transmit abdelrahman reference range : <=0.40. The reference r annemarie was not used to interpr et this result as gurpreet l/abnormal. [facility] [employer]2018-12-13 22:38:00 Test Item Value Reference Range Interpretation Comments Total CK (test code = Total CK) 50 12-191 [facility] [employer]2018-12-13 22:38:00 Test Item Value Reference Range Interpretation Comments eGFR (test code = eGFR) 120 [facility] [employer]2018-12-13 22:38:00 Test Item Value Reference Range Interpretation Comments AST (test code = AST) 17 See_Comment [Auto mated message] The system which ge nerated this result transmit abdelrahman reference range : <=37. The reference range was not used to interpr et this result as gurpreet l/abnormal. [employer]2018-12-13 22:38:00 Test Item Value Reference Range Interpretation Comments ALT (test code = ALT) 23 See_Comment [Auto mated message] The system which ge nerated this result transmit abdelrahman reference range : <=65. The reference range was not used to interpr et this result as gurpreet l/abnormal. [facility]2018-12-13 22:38:00 Test Item Value Reference Range Interpretation Comments Albumin Lvl (test code = Albumin Lvl) 4.0 3.5-5.0 [facility]2018-12-13 22:38:00 Test Item Value Reference Range Interpretation Comments Total Protein (test code = Total 7.4 6.4-8.4 Protein) [facility]2018-12-13 22:38:00 Test Item Value Reference Range Interpretation Comments Bili Total (test code = Bili Total) 0.3 0.2-1.3 [facility]2018-12-13 22:38:00 Test Item Value Reference Range Interpretation Comments Alk Phos (test code = Alk Phos) 35 39-136 [facility]2018-12-13 22:38:00 Test Item Value Reference Range Interpretation Comments Chloride Lvl (test code = Chloride Lvl) 103 95-109 [facility]2018-12-13 22:38:00 Test Item Value Reference Range Interpretation Comments Calcium Lvl (test code = Calcium Lvl) 9.4 8.5-10.5 [facility]2018-12-13 22:38:00 Test Item Value Reference Range Interpretation Comments CO2 (test code = CO2) 32 24-32 [facility]2018-12-13 22:38:00 Test Item Value Reference Range Interpretation Comments Potassium Lvl (test code = Potassium 4.2 3.5-5.1 Lvl) [facility]2018-12-13 22:38:00 Test Item Value Reference Range Interpretation Comments Sodium Lvl (test code = Sodium Lvl) 139 135-145 [facility]2018-12-13 22:38:00 Test Item Value Reference Range Interpretation Comments Creatinine Lvl (test code = Creatinine 0.80 0.50-1.40 Lvl) [facility]2018-12-13 22:38:00 Test Item Value Reference Range Interpretation Comments BUN (test code = BUN) 12 7-22 [facility]2018-12-13 22:38:00 Test Item Value Reference Range Interpretation Comments Glucose Lvl (test code = Glucose Lvl) 93 70-99 [facility]2018-12-13 22:38:00 Test Item Value Reference Range Interpretation Comments A/G Ratio (test code = A/G Ratio) 1.2 1 0.7-1.6 [facility]2018-12-13 22:38:00 Test Item Value Reference Range Interpretation Comments Globulin (test code = Globulin) 3.4 2.7-4.2 [facility]2018-12-13 22:38:00 Test Item Value Reference Range Interpretation Comments B/C Ratio (test code = B/C Ratio) 15 1 6-25 [facility]2018-12-13 22:38:00 Test Item Value Reference Range Interpretation Comments AGAP (test code = AGAP) 8.2 10.0-20.0 [facility] CypressBchmeunHLFVDORKEO2294-27-09 22:38:00 Test Item Value Reference Range Interpretation Comments MCHC (test code = MCHC) 32.1 32.0-36.0 [facility] CypressMnipwycEBVKJNKUTT0843-21-87 22:38:00 Test Item Value Reference Range Interpretation Comments MCH (test code = MCH) 27.4 pg 27.0-31.0 [facility] CypressUxivafgNHYLVQPAFN9512-64-52 22:38:00 Test Item Value Reference Range Interpretation Comments Platelet (test code = Platelet) 200 133-450 [facility] CypressUsomcjcGIJAHPBNMH2431-77-76 22:38:00 Test Item Value Reference Range Interpretation Comments RDW (test code = RDW) 14.4 11.5-14.5 [facility] CypressRwbkzacRKHAWKJNUZ5696-65-07 22:38:00 Test Item Value Reference Range Interpretation Comments MPV (test code = MPV) 9.1 7.4-10.4 [facility] CypressEpchxubSAYMINMHRA7859-43-58 22:38:00 Test Item Value Reference Range Interpretation Comments WBC (test code = WBC) 14.0 3.7-10.4 [place] 130008-12-13 22:38:00 Test Item Value Reference Range Interpretation Comments RBC (test code = RBC) 5.18 4.70-6.10 [facility]VtrphrkNDLVUZFKHK7879-98-33 22:38:00 Test Item Value Reference Range Interpretation Comments Hgb (test code = Hgb) 14.2 14.0-18.0 [facility] CypressSjhuyddGIOPTVZSKH7173-69-59 22:38:00 Test Item Value Reference Range Interpretation Comments Hct (test code = Hct) 44.2 42.0-54.0 [facility] CypressZddbvggQFQQKGNDQA9906-49-45 22:38:00 Test Item Value Reference Range Interpretation Comments MCV (test code = MCV) 85.3 80.0-94.0 [facility] CypressOzzqocmPVDYOASZNS5311-07-26 22:38:00 Test Item Value Reference Range Interpretation Comments Basophils (test code = 0.2 See_Comment [Aut omated message] The Basophils) system which ge nerated this result tra nsmitted reference range : <=1.0. The reference r annemarie was not used to int erpret this result as normal/abnormal . [facility] CypressHvrbkdkKEERARZNSA3034-83-48 22:38:00 Test Item Value Reference Range Interpretation Comments Eosinophils (test code = 0.1 See_Comment [A utomated message] The Eosinophils) system which ge nerated this result tra nsmitted reference range : <=4.0. The reference r annemarie was not used to int erpret this result as normal/abnormal . [facility] CypressXovrsbvECXHUNCSOF3707-78-39 22:38:00 Test Item Value Reference Range Interpretation Comments Monocytes (test code = Monocytes) 2.7 2.0-12.0 [facility] CypressYkjhfpuGGUECMEYWN0778-55-79 22:38:00 Test Item Value Reference Range Interpretation Comments Monocytes # (test code 0.4 See_Comment [Aut omated message] The = Monocytes #) system which generated this result tra nsmitted reference range : <=0.8. The reference r annemarie was not used to int erpret this result as normal/abnormal . [facility] CypressThzqvleDWPXGTXSEC3805-62-68 22:38:00 Test Item Value Reference Range Interpretation Comments Lymphocytes # (test code = Lymphocytes 0.6 1.0-5.5 #) [facility] CypressBkhanvfQKHRNCJBMM1216-57-71 22:38:00 Test Item Value Reference Range Interpretation Comments Neutrophils # (test code = Neutrophils 13.0 1.5-8.1 #) [facility] CypressPbelrxjNRLVRWXBLT3480-28-14 22:38:00 Test Item Value Reference Range Interpretation Comments Lymphocytes (test code = Lymphocytes) 4.1 20.0-40.0 [facility] CypressDcjfojuTNDSXHFHET9431-88-34 22:38:00 Test Item Value Reference Range Interpretation Comments Eosinophils # (test code 0.0 See_Comment [A utomated message] The = Eosinophils #) system whic h generated this result tra nsmitted reference range : <=0.5. The reference r annemarie was not used to int erpret this result as normal/abnormal . [facility]WekidtyRVKHAKZJHJ2563-37-34 22:38:00 Test Item Value Reference Range Interpretation Comments Basophils # (test code 0.0 See_Comment [Aut omated message] The = Basophils #) system which generated this result tra nsmitted reference range : <=0.2. The reference r annemarie was not used to int erpret this result as normal/abnormal . [facility]inteXijqxfbFPLFCNLPFH1435-68-87 22:38:00 Test Item Value Reference Range Interpretation Comments RBC Morph (test code = Normal (04/12/18 4:38 RBC Morph) PM) [facility]ressMhfaqsfGRRXLHUAAL7059-88-68 22:38:00 Test Item Value Reference Range Interpretation Comments Plt Morph (test code = Normal (04/12/18 4:38 Plt Morph) PM) [facility]inteXvlbgqwBVLOQEHIEI6775-48-15 22:38:00 Test Item Value Reference Range Interpretation Comments Segs (test code = Segs) 92.9 45.0-75.0 [facility]inteQpsdpewNTOZJZEMQW6284-17-41 22:38:00 Test Item Value Reference Range Interpretation Comments Large Plt (test code Moderate *ABN*(04/12/18 = Large Plt) 4:38 PM) [facility] TexasRumgr DTEATLD2399-71-31 22:38:00 Test Item Value Reference Range Interpretation Comments Troponin-I (test code 0.02 See_Comment [Auto mated message] The = Troponin-I) system which g enerated this result transmit abdelrahman reference range : <=0.40. The reference r annemarie was not used to interpr et this result as gurpreet l/abnormal. [facility] JPHUDGT1757-86-96 22:38:00 Test Item Value Reference Range Interpretation Comments Total CK (test code = Total CK) 50 12-191 [facility] GEZZT7495-56-02 22:38:00 Test Item Value Reference Range Interpretation Comments eGFR (test code = eGFR) 120 [facility] LQNDB1390-06-93 22:38:00 Test Item Value Reference Range Interpretation Comments AST (test code = AST) 17 See_Comment [Auto mated message] The system which ge nerated this result transmit abdelrahman reference range : <=37. The reference range was not used to interpr et this result as gurpreet l/abnormal. [facility]2018-12-13 22:38:00 Test Item Value Reference Range Interpretation Comments ALT (test code = ALT) 23 See_Comment [Auto mated message] The system which ge nerated this result transmit abdelrahman reference range : <=65. The reference range was not used to interpr et this result as gurpreet l/abnormal. [facility]2018-12-13 22:38:00 Test Item Value Reference Range Interpretation Comments Albumin Lvl (test code = Albumin Lvl) 4.0 3.5-5.0 [facility]2018-12-13 22:38:00 Test Item Value Reference Range Interpretation Comments Total Protein (test code = Total 7.4 6.4-8.4 Protein) [facility]2018-12-13 22:38:00 Test Item Value Reference Range Interpretation Comments Bili Total (test code = Bili Total) 0.3 0.2-1.3 [facility]2018-12-13 22:38:00 Test Item Value Reference Range Interpretation Comments Alk Phos (test code = Alk Phos) 35 39-136 [facility]2018-12-13 22:38:00 Test Item Value Reference Range Interpretation Comments Chloride Lvl (test code = Chloride Lvl) 103 95-109 [facility]2018-12-13 22:38:00 Test Item Value Reference Range Interpretation Comments Calcium Lvl (test code = Calcium Lvl) 9.4 8.5-10.5 [facility]2018-12-13 22:38:00 Test Item Value Reference Range Interpretation Comments CO2 (test code = CO2) 32 24-32 [facility]2018-12-13 22:38:00 Test Item Value Reference Range Interpretation Comments Potassium Lvl (test code = Potassium 4.2 3.5-5.1 Lvl) [facility]2018-12-13 22:38:00 Test Item Value Reference Range Interpretation Comments Sodium Lvl (test code = Sodium Lvl) 139 135-145 [facility]2018-12-13 22:38:00 Test Item Value Reference Range Interpretation Comments Creatinine Lvl (test code = Creatinine 0.80 0.50-1.40 Lvl) [facility]2018-12-13 22:38:00 Test Item Value Reference Range Interpretation Comments BUN (test code = BUN) 12 7-22 [facility]2018-12-13 22:38:00 Test Item Value Reference Range Interpretation Comments Glucose Lvl (test code = Glucose Lvl) 93 70-99 [facility]2018-12-13 22:38:00 Test Item Value Reference Range Interpretation Comments A/G Ratio (test code = A/G Ratio) 1.2 1 0.7-1.6 [facility]2018-12-13 22:38:00 Test Item Value Reference Range Interpretation Comments Globulin (test code = Globulin) 3.4 2.7-4.2 [facility]2018-12-13 22:38:00 Test Item Value Reference Range Interpretation Comments B/C Ratio (test code = B/C Ratio) 15 1 6-25 [facility]2018-12-13 22:38:00 Test Item Value Reference Range Interpretation Comments AGAP (test code = AGAP) 8.2 10.0-20.0 [facility] CypressFlycatvHOTFFWMWGV5821-69-42 22:38:00 Test Item Value Reference Range Interpretation Comments MCHC (test code = MCHC) 32.1 32.0-36.0 [facility] CypressSiuvjuwQLJAHWYRZY4779-60-79 22:38:00 Test Item Value Reference Range Interpretation Comments MCH (test code = MCH) 27.4 pg 27.0-31.0 [facility] CypressKhbxcjnDBKTYXKXAS8642-15-12 22:38:00 Test Item Value Reference Range Interpretation Comments Platelet (test code = Platelet) 200 133-450 [facility] CypressOowvkunDCKZAEPEXW0498-69-71 22:38:00 Test Item Value Reference Range Interpretation Comments RDW (test code = RDW) 14.4 11.5-14.5 [facility] CypressDpmwtbaITOZIXTRHO2535-25-43 22:38:00 Test Item Value Reference Range Interpretation Comments MPV (test code = MPV) 9.1 7.4-10.4 [facility] CypressZhyahlqLZRRXXHDUW7109-51-78 22:38:00 Test Item Value Reference Range Interpretation Comments WBC (test code = WBC) 14.0 3.7-10.4 [facility] CypressRpkchspAWKRWSWJKX0686-79-14 22:38:00 Test Item Value Reference Range Interpretation Comments RBC (test code = RBC) 5.18 4.70-6.10 [facility] CypressWteuoysSYRGFJAWZY0610-03-42 22:38:00 Test Item Value Reference Range Interpretation Comments Hgb (test code = Hgb) 14.2 14.0-18.0 [facility] CypressCycrmdfXVXIWCSORX3700-29-64 22:38:00 Test Item Value Reference Range Interpretation Comments Hct (test code = Hct) 44.2 42.0-54.0 [facility] CypressLcehuzjGIVTBTOQZJ7092-69-38 22:38:00 Test Item Value Reference Range Interpretation Comments MCV (test code = MCV) 85.3 80.0-94.0 [facility] CypressCuopgdeHIFGPSBYAD5910-32-98 22:38:00 Test Item Value Reference Range Interpretation Comments Basophils (test code = 0.2 See_Comment [Aut omated message] The Basophils) system which ge nerated this result tra nsmitted reference range : <=1.0. The reference r annemarie was not used to int erpret this result as normal/abnormal . [facility] CypressXuyrkxrWMJWMCTTRI9520-29-47 22:38:00 Test Item Value Reference Range Interpretation Comments Eosinophils (test code = 0.1 See_Comment [A utomated message] The Eosinophils) system which ge nerated this result tra nsmitted reference range : <=4.0. The reference r annemarie was not used to int erpret this result as normal/abnormal . [facility] CypressMvmroufMEJLALJULL6815-81-00 22:38:00 Test Item Value Reference Range Interpretation Comments Monocytes (test code = Monocytes) 2.7 2.0-12.0 [facility] CypressZrvepsiXLQZMOUFXQ4336-99-43 22:38:00 Test Item Value Reference Range Interpretation Comments Monocytes # (test code 0.4 See_Comment [Aut omated message] The = Monocytes #) system which generated this result tra nsmitted reference range : <=0.8. The reference r annemarie was not used to int erpret this result as normal/abnormal . [facility] CypressOwdoglbNISHQUWWWD0983-11-39 22:38:00 Test Item Value Reference Range Interpretation Comments Lymphocytes # (test code = Lymphocytes 0.6 1.0-5.5 #) [facility]HrddpqkBRNNPUGOUR3846-91-08 22:38:00 Test Item Value Reference Range Interpretation Comments Neutrophils # (test code = Neutrophils 13.0 1.5-8.1 #) [facility] CypressJdfzbndOJZBTZTXEI0407-73-33 22:38:00 Test Item Value Reference Range Interpretation Comments Lymphocytes (test code = Lymphocytes) 4.1 20.0-40.0 [facility] CypressJokfmsyOXSLZFMOMX1119-12-72 22:38:00 Test Item Value Reference Range Interpretation Comments Eosinophils # (test code 0.0 See_Comment [A utomated message] The = Eosinophils #) system whic h generated this result tra nsmitted reference range : <=0.5. The reference r annemarie was not used to int erpret this result as normal/abnormal . [facility] CypressSldwynjHLXGMOBION1467-91-79 22:38:00 Test Item Value Reference Range Interpretation Comments Basophils # (test code 0.0 See_Comment [Aut omated message] The = Basophils #) system which generated this result tra nsmitted reference range : <=0.2. The reference r annemarie was not used to int erpret this result as normal/abnormal . [facility] CypressLnnaghjFINZEGXPWH6983-46-88 22:38:00 Test Item Value Reference Range Interpretation Comments RBC Morph (test code = Normal (04/12/18 4:38 RBC Morph) PM) [facility] CypressSqhcbqiPEKSBGBEQX2733-89-43 22:38:00 Test Item Value Reference Range Interpretation Comments Plt Morph (test code = Normal (04/12/18 4:38 Plt Morph) PM) [facility] CypressDmfzurqUVLYJDFZEN1664-31-15 22:38:00 Test Item Value Reference Range Interpretation Comments Segs (test code = Segs) 92.9 45.0-75.0 [facility] CypressWkamigeNSTLASNTXA6933-32-84 22:38:00 Test Item Value Reference Range Interpretation Comments Large Plt (test code Moderate *ABN*(04/12/18 = Large Plt) 4:38 PM) [facility] TexasCARDIAC VWQJUGH9757-16-14 03:21:00 Test Item Value Reference Range Interpretation Comments Total CK (test code = Total CK) 3725 12-191 [facility]QwugydnOJTHNNTJHLOS2359-52-66 03:21:00 Test Item Value Reference Range Interpretation Comments AGAP (test code = AGAP) 14.1 10.0-20.0 [facility] HospitalZntavltGABERLAATZJQ8729-91-62 03:21:00 Test Item Value Reference Range Interpretation Comments B/C Ratio (test code = B/C Ratio) 11 6-25 [facility] HospitalUhoeyhjZLMBQZUWJLPC7407-09-97 03:21:00 Test Item Value Reference Range Interpretation Comments Globulin (test code = Globulin) 3.2 2.7-4.2 [facility] HospitalVzngbesBGWCQBPAUAJR0935-30-92 03:21:00 Test Item Value Reference Range Interpretation Comments A/G Ratio (test code = A/G Ratio) 1.3 0.7-1.6 [facility] HospitalAbvrnvgNDBNOEEUHFON8833-09-81 03:21:00 Test Item Value Reference Range Interpretation Comments Bili Total (test code = Bili Total) 0.4 0.2-1.3 [facility] HospitalQzvixpfAFBZMFUNVLKM9115-77-00 03:21:00 Test Item Value Reference Range Interpretation Comments eGFR (test code = eGFR) 102 [facility] HospitalQpkkmraZFLMRCQNHBQB7515-82-72 03:21:00 Test Item Value Reference Range Interpretation Comments Albumin Lvl (test code = Albumin Lvl) 4.2 3.5-5.0 [facility] HospitalKpkfpeeZUMNQDXRTZZQ0154-90-98 03:21:00 Test Item Value Reference Range Interpretation Comments Alk Phos (test code = Alk Phos) 48 39-136 [facility] HospitalVqfypsnUVDFRVKTJJYH2439-18-89 03:21:00 Test Item Value Reference Range Interpretation Comments AST (test code = AST) 144 See_Comment [Auto mated message] The system which ge nerated this result transmit abdelrahman reference range : <=37. The reference range was not used to interpr et this result as gurpreet l/abnormal. [facility] HospitalEndrfegHNBZZXKCQWKY9010-48-98 03:21:00 Test Item Value Reference Range Interpretation Comments Glucose Lvl (test code = Glucose Lvl) 75 70-99 [facility] HospitalQclzlvcTNVLCPNXLENL9045-08-18 03:21:00 Test Item Value Reference Range Interpretation Comments BUN (test code = BUN) 11 7-22 [facility] HospitalLjyckfnHGJNHNRAGWVP4990-43-36 03:21:00 Test Item Value Reference Range Interpretation Comments Potassium Lvl (test code = Potassium 4.1 3.5-5.1 Lvl) [facility] HospitalPysinruIJNCGBKVQYGM4997-08-97 03:21:00 Test Item Value Reference Range Interpretation Comments Creatinine Lvl (test code = Creatinine 1.00 0.50-1.40 Lvl) [facility] HospitalMdsdsijXKWWGHKGRJNI3043-33-07 03:21:00 Test Item Value Reference Range Interpretation Comments Sodium Lvl (test code = Sodium Lvl) 140 135-145 [facility] HospitalKrmheuaZCXCTVBVGNLZ3049-04-57 03:21:00 Test Item Value Reference Range Interpretation Comments Chloride Lvl (test code = Chloride Lvl) 106 95-109 [facility] HospitalGdkbuusJWUNZKAJWVKJ1121-83-74 03:21:00 Test Item Value Reference Range Interpretation Comments CO2 (test code = CO2) 24 24-32 [facility] HospitalQtsdmgmIEJJSOOSJCSX3697-08-82 03:21:00 Test Item Value Reference Range Interpretation Comments Total Protein (test code = Total 7.4 6.4-8.4 Protein) [facility] HospitalUkhvkfcNSGPAWICEXTX1725-16-73 03:21:00 Test Item Value Reference Range Interpretation Comments Calcium Lvl (test code = Calcium Lvl) 9.1 8.5-10.5 [facility] HospitalAeqdqonNAEQBPNWMVUY3011-35-56 03:21:00 Test Item Value Reference Range Interpretation Comments ALT (test code = ALT) 52 See_Comment [Auto mated message] The system which ge nerated this result transmit abdelrahman reference range : <=65. The reference range was not used to interpr et this result as gurpreet l/abnormal. [facility] CypressErouppjHVYYIFJHRT7267-69-78 03:21:00 Test Item Value Reference Range Interpretation Comments MCV (test code = MCV) 86.0 80.0-94.0 [facility] CypressLijlsvlWRAZNXJAJR2895-23-98 03:21:00 Test Item Value Reference Range Interpretation Comments MCH (test code = MCH) 29.7 pg 27.0-31.0 [facility] CypressFpbjdzaUTYDRNDLTM4425-39-73 03:21:00 Test Item Value Reference Range Interpretation Comments Hct (test code = Hct) 41.0 42.0-54.0 [facility] CypressEqoagccFUHYBGOQUR1887-48-68 03:21:00 Test Item Value Reference Range Interpretation Comments RBC (test code = RBC) 4.77 4.70-6.10 [facility] CypressHyxuiclGXWKYJFHWA5970-96-12 03:21:00 Test Item Value Reference Range Interpretation Comments WBC (test code = WBC) 8.8 3.7-10.4 [facility] CypressYbvpvvoADTLIMTDYM9787-47-84 03:21:00 Test Item Value Reference Range Interpretation Comments Hgb (test code = Hgb) 14.2 14.0-18.0 [facility] CypressQlufnnzEORLRXYWRL8677-52-78 03:21:00 Test Item Value Reference Range Interpretation Comments Platelet (test code = Platelet) 141 133-450 [facility] CypressCtifajqKTQWTOMZFM1806-37-85 03:21:00 Test Item Value Reference Range Interpretation Comments MCHC (test code = MCHC) 34.5 32.0-36.0 [facility] CypressUizwybdJKKWIGNLHU7118-73-31 03:21:00 Test Item Value Reference Range Interpretation Comments RDW (test code = RDW) 13.5 11.5-14.5 [facility] CypressIdwtderUVNXJXMXEE1191-08-56 03:21:00 Test Item Value Reference Range Interpretation Comments MPV (test code = MPV) 8.9 7.4-10.4 [facility] CypressShokdhgDGHCWNXKAD3232-94-74 03:21:00 Test Item Value Reference Range Interpretation Comments Lymphocytes (test code = Lymphocytes) 21.1 20.0-40.0 [facility] CypressByhpacyAVXUPACNDM5266-45-16 03:21:00 Test Item Value Reference Range Interpretation Comments Monocytes (test code = Monocytes) 11.7 2.0-12.0 [facility] CypressUfpnxqsKYHQNNGPGW9610-02-45 03:21:00 Test Item Value Reference Range Interpretation Comments Lymphocytes # (test code = Lymphocytes 1.8 1.0-5.5 #) [facility] CypressZijkeceITMTFKSHVP8488-27-44 03:21:00 Test Item Value Reference Range Interpretation Comments Segs-Bands # (test code = Segs-Bands #) 5.7 1.5-8.1 [facility] CypressNtmfhzdATQBOFZSSA5829-92-76 03:21:00 Test Item Value Reference Range Interpretation Comments Eosinophils (test code = 1.7 See_Comment [A utomated message] The Eosinophils) system which ge nerated this result tra nsmitted reference range : <=4.0. The reference r annemarie was not used to int erpret this result as normal/abnormal . [facility]ressXmjdlujVBXDGFBMHL1969-61-85 03:21:00 Test Item Value Reference Range Interpretation Comments Basophils (test code = 0.8 See_Comment [Aut omated message] The Basophils) system which ge nerated this result tra nsmitted reference range : <=1.0. The reference r annemarie was not used to int erpret this result as normal/abnormal . [facility] CypressCjchjjzITRWIKXKOA5041-31-96 03:21:00 Test Item Value Reference Range Interpretation Comments Basophils # (test code 0.1 See_Comment [Aut omated message] The = Basophils #) system which generated this result tra nsmitted reference range : <=0.2. The reference r annemarie was not used to int erpret this result as normal/abnormal . [facility] CypressOlkwqshACQZHPHTIE1417-25-53 03:21:00 Test Item Value Reference Range Interpretation Comments Monocytes # (test code 1.0 See_Comment [Aut omated message] The = Monocytes #) system which generated this result tra nsmitted reference range : <=0.8. The reference r annemarie was not used to int erpret this result as normal/abnormal . [facility] CypressZzdyylfHWMMHIPIPG6474-45-21 03:21:00 Test Item Value Reference Range Interpretation Comments Eosinophils # (test code 0.2 See_Comment [A utomated message] The = Eosinophils #) system whic h generated this result tra nsmitted reference range : <=0.5. The reference r annemarie was not used to int erpret this result as normal/abnormal . [facility] CypressCcjwlmwGBPVXHJCPE4118-89-63 03:21:00 Test Item Value Reference Range Interpretation Comments Segs (test code = Segs) 64.7 45.0-75.0 [facility] TexasCARDIP[facility] SERVICESDCXUACO9595-22-42 03:21:00 Test Item Value Reference Range Interpretation Comments Total CK (test code = Total CK) 3725 12-191 [facility] HospitalLkrxrddZDFNRXMNRFNG0496-51-33 03:21:00 Test Item Value Reference Range Interpretation Comments AGAP (test code = AGAP) 14.1 10.0-20.0 [facility] HospitalCodvzmkQUCKVIMFTHLB7443-01-38 03:21:00 Test Item Value Reference Range Interpretation Comments B/C Ratio (test code = B/C Ratio) 11 6-25 [facility] HospitalQtssbpgPBCIHXWIKAIZ0825-38-60 03:21:00 Test Item Value Reference Range Interpretation Comments Globulin (test code = Globulin) 3.2 2.7-4.2 [facility] HospitalDggimtyNQUTWQIKMFCU8692-50-77 03:21:00 Test Item Value Reference Range Interpretation Comments A/G Ratio (test code = A/G Ratio) 1.3 0.7-1.6 [facility] HospitalUtzkmatNNPNEXGCXGXC8105-70-59 03:21:00 Test Item Value Reference Range Interpretation Comments Bili Total (test code = Bili Total) 0.4 0.2-1.3 [facility] HospitalIjhqsnjROBTCQTMBIGP1996-51-87 03:21:00 Test Item Value Reference Range Interpretation Comments eGFR (test code = eGFR) 102 [facility] HospitalNzmaiqaOKGQNWPVXCZH7643-73-05 03:21:00 Test Item Value Reference Range Interpretation Comments Albumin Lvl (test code = Albumin Lvl) 4.2 3.5-5.0 [facility] HospitalTusvaadDXYUEBOKZXYF8596-26-35 03:21:00 Test Item Value Reference Range Interpretation Comments Alk Phos (test code = Alk Phos) 48 39-136 [facility] HospitalTopjtghGCPXFBRFRGLX1749-50-09 03:21:00 Test Item Value Reference Range Interpretation Comments AST (test code = AST) 144 See_Comment [Auto mated message] The system which ge nerated this result transmit abdelrahman reference range : <=37. The reference range was not used to interpr et this result as gurpreet l/abnormal. [facility] HospitalBkvgsjrMPDUECYDMWUP8604-43-24 03:21:00 Test Item Value Reference Range Interpretation Comments Glucose Lvl (test code = Glucose Lvl) 75 70-99 [facility] HospitalJvspyygLEZWYOUDGASD7175-90-61 03:21:00 Test Item Value Reference Range Interpretation Comments BUN (test code = BUN) 11 7-22 [facility] HospitalUjjasytZWNQTYGMVYJE1686-57-27 03:21:00 Test Item Value Reference Range Interpretation Comments Potassium Lvl (test code = Potassium 4.1 3.5-5.1 Lvl) [facility] HospitalTolmzpyYLONTCZDYMXA9905-33-28 03:21:00 Test Item Value Reference Range Interpretation Comments Creatinine Lvl (test code = Creatinine 1.00 0.50-1.40 Lvl) [facility] HospitalAxtzwfiEFRHLSEXOHXB7794-04-99 03:21:00 Test Item Value Reference Range Interpretation Comments Sodium Lvl (test code = Sodium Lvl) 140 135-145 [facility] HospitalDecrxyrHBUBSXEKASAS4598-76-34 03:21:00 Test Item Value Reference Range Interpretation Comments Chloride Lvl (test code = Chloride Lvl) 106 95-109 [facility] HospitalKhtkrfdGFHMJZYASEJW7680-05-85 03:21:00 Test Item Value Reference Range Interpretation Comments CO2 (test code = CO2) 24 24-32 [facility] HospitalByahjaiQUVNURLOIXWX1359-11-03 03:21:00 Test Item Value Reference Range Interpretation Comments Total Protein (test code = Total 7.4 6.4-8.4 Protein) [facility] HospitalYdgykzbVRBNETYSJFAH1279-64-97 03:21:00 Test Item Value Reference Range Interpretation Comments Calcium Lvl (test code = Calcium Lvl) 9.1 8.5-10.5 [facility] HospitalLabhtumXGJKFIAMWVYW8555-91-82 03:21:00 Test Item Value Reference Range Interpretation Comments ALT (test code = ALT) 52 See_Comment [Auto mated message] The system which ge nerated this result transmit abdelrahman reference range : <=65. The reference range was not used to interpr et this result as gurpreet l/abnormal. [facility]ressNirjgduAOUKGMJWPI9131-99-74 03:21:00 Test Item Value Reference Range Interpretation Comments MCV (test code = MCV) 86.0 80.0-94.0 [facility] CypressVkahfygSMUZXZZEQF3780-84-66 03:21:00 Test Item Value Reference Range Interpretation Comments MCH (test code = MCH) 29.7 pg 27.0-31.0 [facility]ressCxgdnfrYZJTDXQKWV9154-07-45 03:21:00 Test Item Value Reference Range Interpretation Comments Hct (test code = Hct) 41.0 42.0-54.0 [facility] CypressYnqshheVEORVPIKNC1307-93-51 03:21:00 Test Item Value Reference Range Interpretation Comments RBC (test code = RBC) 4.77 4.70-6.10 [facility] CypressLsgjzbzDMKCNOJKBA2746-14-78 03:21:00 Test Item Value Reference Range Interpretation Comments WBC (test code = WBC) 8.8 3.7-10.4 [facility] CypressDynrevkHTPSPJTRDM0150-93-47 03:21:00 Test Item Value Reference Range Interpretation Comments Hgb (test code = Hgb) 14.2 14.0-18.0 [facility] CypressWkqemltFTNJHETGAZ7074-82-00 03:21:00 Test Item Value Reference Range Interpretation Comments Platelet (test code = Platelet) 141 133-450 [facility] CypressZblpyjjHYJDNDENWF9473-79-82 03:21:00 Test Item Value Reference Range Interpretation Comments MCHC (test code = MCHC) 34.5 32.0-36.0 [facility] CypressVxpnzheGJKRANXHLF4807-26-98 03:21:00 Test Item Value Reference Range Interpretation Comments RDW (test code = RDW) 13.5 11.5-14.5 [facility] CypressIsapcwcVCCXCEQPMJ8633-16-33 03:21:00 Test Item Value Reference Range Interpretation Comments MPV (test code = MPV) 8.9 7.4-10.4 [facility] CypressEfepptyLANOASQGZB5120-45-85 03:21:00 Test Item Value Reference Range Interpretation Comments Lymphocytes (test code = Lymphocytes) 21.1 20.0-40.0 [facility] CypressLnisrtuHNRKMOBRRF1459-14-72 03:21:00 Test Item Value Reference Range Interpretation Comments Monocytes (test code = Monocytes) 11.7 2.0-12.0 [facility] CypressLytmqolKDFQQKFSCW2097-03-87 03:21:00 Test Item Value Reference Range Interpretation Comments Lymphocytes # (test code = Lymphocytes 1.8 1.0-5.5 #) [facility] CypressAuhddtdSAOMWADGCZ6968-76-70 03:21:00 Test Item Value Reference Range Interpretation Comments Segs-Bands # (test code = Segs-Bands #) 5.7 1.5-8.1 [facility] CypressHfukuqnJEZAEYIKWQ2147-12-63 03:21:00 Test Item Value Reference Range Interpretation Comments Eosinophils (test code = 1.7 See_Comment [A utomated message] The Eosinophils) system which ge nerated this result tra nsmitted reference range : <=4.0. The reference r annemarie was not used to int erpret this result as normal/abnormal . [facility] CypressZrwjwduRXTHAIPJKG6233-77-95 03:21:00 Test Item Value Reference Range Interpretation Comments Basophils (test code = 0.8 See_Comment [Aut omated message] The Basophils) system which ge nerated this result tra nsmitted reference range : <=1.0. The reference r annemarie was not used to int erpret this result as normal/abnormal . [facility] CypressDacxducUEOOVHYWQV9499-63-93 03:21:00 Test Item Value Reference Range Interpretation Comments Basophils # (test code 0.1 See_Comment [Aut omated message] The = Basophils #) system which generated this result tra nsmitted reference range : <=0.2. The reference r annemarie was not used to int erpret this result as normal/abnormal . [facility] CypressHovfcamFIOAQVTSUI6855-63-88 03:21:00 Test Item Value Reference Range Interpretation Comments Monocytes # (test code 1.0 See_Comment [Aut omated message] The = Monocytes #) system which generated this result tra nsmitted reference range : <=0.8. The reference r annemarie was not used to int erpret this result as normal/abnormal . [facility] CypressKabvhbdXGWIQPUMEQ8350-54-75 03:21:00 Test Item Value Reference Range Interpretation Comments Eosinophils # (test code 0.2 See_Comment [A utomated message] The = Eosinophils #) system whic h generated this result tra nsmitted reference range : <=0.5. The reference r annemarie was not used to int erpret this result as normal/abnormal . [facility] CypressMrpqmvyBBHGWTAHWW7613-12-70 03:21:00 Test Item Value Reference Range Interpretation Comments Segs (test code = Segs) 64.7 45.0-75.0 [facility]CARD[facility] SERVICESOWNOLVU7685-35-75 03:21:00 Test Item Value Reference Range Interpretation Comments Total CK (test code = Total CK) 3725 12-191 [facility] HospitalMpohqqjTDOQYXLCLAMG8337-59-40 03:21:00 Test Item Value Reference Range Interpretation Comments AGAP (test code = AGAP) 14.1 10.0-20.0 [facility] HospitalPwtjobxRPMYHEWDGEIP1465-52-37 03:21:00 Test Item Value Reference Range Interpretation Comments B/C Ratio (test code = B/C Ratio) 11 6-25 [facility] HospitalRbytplhYCFHXIQCPKCX4273-75-55 03:21:00 Test Item Value Reference Range Interpretation Comments Globulin (test code = Globulin) 3.2 2.7-4.2 [facility] HospitalIfdqgtkUEDYWSGEGSOS3153-07-58 03:21:00 Test Item Value Reference Range Interpretation Comments A/G Ratio (test code = A/G Ratio) 1.3 0.7-1.6 [facility] HospitalAgtsnzwXLETKJQPRWXS6189-23-78 03:21:00 Test Item Value Reference Range Interpretation Comments Bili Total (test code = Bili Total) 0.4 0.2-1.3 [facility] HospitalGijkxvzPVXTEGIXQITY0827-81-28 03:21:00 Test Item Value Reference Range Interpretation Comments eGFR (test code = eGFR) 102 [facility] HospitalMukjgctVVTJHNEQRJXT3839-36-88 03:21:00 Test Item Value Reference Range Interpretation Comments Albumin Lvl (test code = Albumin Lvl) 4.2 3.5-5.0 [facility] HospitalHkyuitfJLLDJMOQTRKU8133-25-45 03:21:00 Test Item Value Reference Range Interpretation Comments Alk Phos (test code = Alk Phos) 48 39-136 [facility] HospitalRbddfxoRVMYTJFTEFMP7381-56-87 03:21:00 Test Item Value Reference Range Interpretation Comments AST (test code = AST) 144 See_Comment [Auto mated message] The system which ge nerated this result transmit abdelrahman reference range : <=37. The reference range was not used to interpr et this result as gurpreet l/abnormal. [facility] HospitalRqlabqgSGVHXLAYVFAJ9637-16-23 03:21:00 Test Item Value Reference Range Interpretation Comments Glucose Lvl (test code = Glucose Lvl) 75 70-99 [facility] HospitalZeqhqzpTWUSMDKBLOMU6224-14-04 03:21:00 Test Item Value Reference Range Interpretation Comments BUN (test code = BUN) 11 7-22 [facility] HospitalOwfycxdSXBFTOPZHTJD1952-61-93 03:21:00 Test Item Value Reference Range Interpretation Comments Potassium Lvl (test code = Potassium 4.1 3.5-5.1 Lvl) [facility] HospitalEuyozjaCSPVSWQGBMSL7503-28-35 03:21:00 Test Item Value Reference Range Interpretation Comments Creatinine Lvl (test code = Creatinine 1.00 0.50-1.40 Lvl) [facility] HospitalLykeomkSEDDVRWNGMXF4252-58-55 03:21:00 Test Item Value Reference Range Interpretation Comments Sodium Lvl (test code = Sodium Lvl) 140 135-145 [facility] HospitalSydhfbiXHIQWCTZJJYN9035-13-10 03:21:00 Test Item Value Reference Range Interpretation Comments Chloride Lvl (test code = Chloride Lvl) 106 95-109 [facility] HospitalVlgxmntWPFESLBAWCYS0347-50-67 03:21:00 Test Item Value Reference Range Interpretation Comments CO2 (test code = CO2) 24 24-32 [facility] HospitalDbetitvLNLTVAOIFIIR5835-98-54 03:21:00 Test Item Value Reference Range Interpretation Comments Total Protein (test code = Total 7.4 6.4-8.4 Protein) [facility] HospitalWaljpciCAFFRXRSOSSU5892-14-64 03:21:00 Test Item Value Reference Range Interpretation Comments Calcium Lvl (test code = Calcium Lvl) 9.1 8.5-10.5 [facility] HospitalDswosjhIEWZJKIMKCQK3027-13-92 03:21:00 Test Item Value Reference Range Interpretation Comments ALT (test code = ALT) 52 See_Comment [Auto mated message] The system which ge nerated this result transmit abdelrahman reference range : <=65. The reference range was not used to interpr et this result as gurpreet l/abnormal. [facility] CypressOdwrupvPYAREPKMHP1294-15-00 03:21:00 Test Item Value Reference Range Interpretation Comments MCV (test code = MCV) 86.0 80.0-94.0 [facility] CypressTdirzrvJUKWYQSLDO6236-03-28 03:21:00 Test Item Value Reference Range Interpretation Comments MCH (test code = MCH) 29.7 pg 27.0-31.0 [facility] CypressMfaihxlSFJACHROQN1895-49-89 03:21:00 Test Item Value Reference Range Interpretation Comments Hct (test code = Hct) 41.0 42.0-54.0 [facility] CypressOkgapruWTHZDDLWFG9701-18-80 03:21:00 Test Item Value Reference Range Interpretation Comments RBC (test code = RBC) 4.77 4.70-6.10 [facility] CypressKdiozrxPKZFZSIYKN0688-85-66 03:21:00 Test Item Value Reference Range Interpretation Comments WBC (test code = WBC) 8.8 3.7-10.4 [facility] CypressQyrtmfhUAAPNZUMTD4810-50-75 03:21:00 Test Item Value Reference Range Interpretation Comments Hgb (test code = Hgb) 14.2 14.0-18.0 [facility] CypressMiwnzesWNZXKACZNB6237-49-36 03:21:00 Test Item Value Reference Range Interpretation Comments Platelet (test code = Platelet) 141 133-450 [facility] CypressYsteosvYIHUMYWUOL3466-41-59 03:21:00 Test Item Value Reference Range Interpretation Comments MCHC (test code = MCHC) 34.5 32.0-36.0 [facility] CypressCvyahmaJRMKOBCLUU6328-73-39 03:21:00 Test Item Value Reference Range Interpretation Comments RDW (test code = RDW) 13.5 11.5-14.5 [facility] CypressWmbozohNCEFZTRMST2804-35-66 03:21:00 Test Item Value Reference Range Interpretation Comments MPV (test code = MPV) 8.9 7.4-10.4 [facility] CypressMejteuuVDKVLXDLSR8385-15-55 03:21:00 Test Item Value Reference Range Interpretation Comments Lymphocytes (test code = Lymphocytes) 21.1 20.0-40.0 [facility] CypressQzzhjuuQDRIJWHZWG7777-57-21 03:21:00 Test Item Value Reference Range Interpretation Comments Monocytes (test code = Monocytes) 11.7 2.0-12.0 [facility] CypressPqvfmdlCFGZFGENMY2819-25-66 03:21:00 Test Item Value Reference Range Interpretation Comments Lymphocytes # (test code = Lymphocytes 1.8 1.0-5.5 #) [facility] CypressBdpvtdjEYJMVOLRGN0903-68-64 03:21:00 Test Item Value Reference Range Interpretation Comments Segs-Bands # (test code = Segs-Bands #) 5.7 1.5-8.1 [facility] CypressJaouqoqDNDLKYCJES8496-92-74 03:21:00 Test Item Value Reference Range Interpretation Comments Eosinophils (test code = 1.7 See_Comment [A utomated message] The Eosinophils) system which ge nerated this result tra nsmitted reference range : <=4.0. The reference r annemarie was not used to int erpret this result as normal/abnormal . [facility] CypressTisicirZVXWTKYZSF3286-61-72 03:21:00 Test Item Value Reference Range Interpretation Comments Basophils (test code = 0.8 See_Comment [Aut omated message] The Basophils) system which ge nerated this result tra nsmitted reference range : <=1.0. The reference r annemarie was not used to int erpret this result as normal/abnormal . [facility] CypressFyqbmlsLBHVTAGNIX0851-37-10 03:21:00 Test Item Value Reference Range Interpretation Comments Basophils # (test code 0.1 See_Comment [Aut omated message] The = Basophils #) system which generated this result tra nsmitted reference range : <=0.2. The reference r annemarie was not used to int erpret this result as normal/abnormal . [facility] CypressXzvpintXGZFLORYRN4216-41-10 03:21:00 Test Item Value Reference Range Interpretation Comments Monocytes # (test code 1.0 See_Comment [Aut omated message] The = Monocytes #) system which generated this result tra nsmitted reference range : <=0.8. The reference r annemarie was not used to int erpret this result as normal/abnormal . [facility] CypressUtfdzecQHSKAGRDLS3164-61-22 03:21:00 Test Item Value Reference Range Interpretation Comments Eosinophils # (test code 0.2 See_Comment [A utomated message] The = Eosinophils #) system whic h generated this result tra nsmitted reference range : <=0.5. The reference r annemarie was not used to int erpret this result as normal/abnormal . [facility] CypressAxfroxiQUMMSWCNRY8422-68-51 03:21:00 Test Item Value Reference Range Interpretation Comments Segs (test code = Segs) 64.7 45.0-75.0 [facility] SERVICESTDHVBZS5045-76-42 03:21:00 Test Item Value Reference Range Interpretation Comments Total CK (test code = Total CK) 3725 12-191 [facility] HospitalKuhyswhGQTZZNKLGMLQ1607-40-52 03:21:00 Test Item Value Reference Range Interpretation Comments AGAP (test code = AGAP) 14.1 10.0-20.0 [facility] HospitalLtuaztsKRKGISZSJKNF7221-79-37 03:21:00 Test Item Value Reference Range Interpretation Comments B/C Ratio (test code = B/C Ratio) 11 6-25 [facility] HospitalPbryxqvGPWQYUECVLXJ8486-63-04 03:21:00 Test Item Value Reference Range Interpretation Comments Globulin (test code = Globulin) 3.2 2.7-4.2 [facility] HospitalSpwqsrwBKLZEGDNBNMT9097-45-09 03:21:00 Test Item Value Reference Range Interpretation Comments A/G Ratio (test code = A/G Ratio) 1.3 0.7-1.6 [facility] HospitalUvqmsyrCUPDLAOHPHNM8387-78-74 03:21:00 Test Item Value Reference Range Interpretation Comments Bili Total (test code = Bili Total) 0.4 0.2-1.3 [facility] HospitalUnatfhmZCYPBKYMKLGH3411-12-73 03:21:00 Test Item Value Reference Range Interpretation Comments eGFR (test code = eGFR) 102 [facility] HospitalBqfhyefJIPMICDBYUVE6193-32-37 03:21:00 Test Item Value Reference Range Interpretation Comments Albumin Lvl (test code = Albumin Lvl) 4.2 3.5-5.0 [facility] HospitalXnndsxmZEDNNITKWAFM5028-53-02 03:21:00 Test Item Value Reference Range Interpretation Comments Alk Phos (test code = Alk Phos) 48 39-136 [facility] HospitalCxjatzuWLLAECQTGOIX6685-72-67 03:21:00 Test Item Value Reference Range Interpretation Comments AST (test code = AST) 144 See_Comment [Auto mated message] The system which ge nerated this result transmit abdelrahman reference range : <=37. The reference range was not used to interpr et this result as gurpreet l/abnormal. [facility] HospitalRhfouzoTZWXZOPQYJST6545-67-19 03:21:00 Test Item Value Reference Range Interpretation Comments Glucose Lvl (test code = Glucose Lvl) 75 70-99 [facility] HospitalJuueokgFRIWAADUOULA1420-84-17 03:21:00 Test Item Value Reference Range Interpretation Comments BUN (test code = BUN) 11 7-22 [facility] HospitalKhisloyTTSFKYPRQUMS5758-44-98 03:21:00 Test Item Value Reference Range Interpretation Comments Potassium Lvl (test code = Potassium 4.1 3.5-5.1 Lvl) [facility] HospitalJtadencXTXMBGQBGRED1297-86-20 03:21:00 Test Item Value Reference Range Interpretation Comments Creatinine Lvl (test code = Creatinine 1.00 0.50-1.40 Lvl) [facility] HospitalYzcpmuaYIPPZBDQIDHK8030-58-92 03:21:00 Test Item Value Reference Range Interpretation Comments Sodium Lvl (test code = Sodium Lvl) 140 135-145 [facility] HospitalBsdkusoNQPYMLPGMMRH6703-29-51 03:21:00 Test Item Value Reference Range Interpretation Comments Chloride Lvl (test code = Chloride Lvl) 106 95-109 [facility] HospitalAwwjeymQXLVVWDUMTCI0390-32-15 03:21:00 Test Item Value Reference Range Interpretation Comments CO2 (test code = CO2) 24 24-32 [facility] HospitalIhtanfbMUNJWYEFXWFD6608-81-98 03:21:00 Test Item Value Reference Range Interpretation Comments Total Protein (test code = Total 7.4 6.4-8.4 Protein) [facility] HospitalOolwshdHDZULOGJTCRB1738-66-37 03:21:00 Test Item Value Reference Range Interpretation Comments Calcium Lvl (test code = Calcium Lvl) 9.1 8.5-10.5 [facility] HospitalVhngvkdBWYIVGRKCZOM7130-22-98 03:21:00 Test Item Value Reference Range Interpretation Comments ALT (test code = ALT) 52 See_Comment [Auto mated message] The system which ge nerated this result transmit abdelrahman reference range : <=65. The reference range was not used to interpr et this result as gurpreet l/abnormal. [facility] CypressEtrfccwUMMPBXFLDH1653-84-58 03:21:00 Test Item Value Reference Range Interpretation Comments MCV (test code = MCV) 86.0 80.0-94.0 [facility] CypressHezoivyZHFQUSRQGP1959-38-46 03:21:00 Test Item Value Reference Range Interpretation Comments MCH (test code = MCH) 29.7 pg 27.0-31.0 [facility] CypressCsfnrykQMKLSDMCHO7844-60-79 03:21:00 Test Item Value Reference Range Interpretation Comments Hct (test code = Hct) 41.0 42.0-54.0 [facility] CypressMgeuethVNPSHWCWFP5831-72-71 03:21:00 Test Item Value Reference Range Interpretation Comments RBC (test code = RBC) 4.77 4.70-6.10 [facility] CypressHnynllmZDLLQABWXR0514-52-78 03:21:00 Test Item Value Reference Range Interpretation Comments WBC (test code = WBC) 8.8 3.7-10.4 [facility] CypressAolmnhgWGLRNRTUOL5933-97-23 03:21:00 Test Item Value Reference Range Interpretation Comments Hgb (test code = Hgb) 14.2 14.0-18.0 [facility] CypressEbwizjrQGABKJBNEC4880-81-80 03:21:00 Test Item Value Reference Range Interpretation Comments Platelet (test code = Platelet) 141 133-450 [facility] CypressGmsswtzTCOKUHCHBX3811-39-53 03:21:00 Test Item Value Reference Range Interpretation Comments MCHC (test code = MCHC) 34.5 32.0-36.0 [facility] CypressFtrqotyZZUDBAJVBW3053-35-97 03:21:00 Test Item Value Reference Range Interpretation Comments RDW (test code = RDW) 13.5 11.5-14.5 [facility] CypressGcmhnkmWTRMHMHSHH8117-60-72 03:21:00 Test Item Value Reference Range Interpretation Comments MPV (test code = MPV) 8.9 7.4-10.4 [facility] CypressRvjxrzcTLSOPOJVIC4613-49-10 03:21:00 Test Item Value Reference Range Interpretation Comments Lymphocytes (test code = Lymphocytes) 21.1 20.0-40.0 [facility] CypressOkjzjcgMHELWFHAEB1772-24-96 03:21:00 Test Item Value Reference Range Interpretation Comments Monocytes (test code = Monocytes) 11.7 2.0-12.0 [facility] CypressZtvfsgcSSPQNPFMSA7474-50-70 03:21:00 Test Item Value Reference Range Interpretation Comments Lymphocytes # (test code = Lymphocytes 1.8 1.0-5.5 #) [facility] CypressVnzalazCUZZPXZYKM2008-24-11 03:21:00 Test Item Value Reference Range Interpretation Comments Segs-Bands # (test code = Segs-Bands #) 5.7 1.5-8.1 [facility] CypressYihuhhmZPUNULHSHL2066-57-71 03:21:00 Test Item Value Reference Range Interpretation Comments Eosinophils (test code = 1.7 See_Comment [A utomated message] The Eosinophils) system which ge nerated this result tra nsmitted reference range : <=4.0. The reference r annemarie was not used to int erpret this result as normal/abnormal . [facility] CypressBjurqtyTBNBESJWSS9730-83-15 03:21:00 Test Item Value Reference Range Interpretation Comments Basophils (test code = 0.8 See_Comment [Aut omated message] The Basophils) system which ge nerated this result tra nsmitted reference range : <=1.0. The reference r annemarie was not used to int erpret this result as normal/abnormal . [facility] CypressCnqhxsuKZHXSHCEPW8034-68-00 03:21:00 Test Item Value Reference Range Interpretation Comments Basophils # (test code 0.1 See_Comment [Aut omated message] The = Basophils #) system which generated this result tra nsmitted reference range : <=0.2. The reference r annemarie was not used to int erpret this result as normal/abnormal . [facility] CypressFunpouxVLDBQPRAGF8470-88-70 03:21:00 Test Item Value Reference Range Interpretation Comments Monocytes # (test code 1.0 See_Comment [Aut omated message] The = Monocytes #) system which generated this result tra nsmitted reference range : <=0.8. The reference r annemarie was not used to int erpret this result as normal/abnormal . [facility] CypressDxpfoteVYBQZTPMTQ9233-97-31 03:21:00 Test Item Value Reference Range Interpretation Comments Eosinophils # (test code 0.2 See_Comment [A utomated message] The = Eosinophils #) system whic h generated this result tra nsmitted reference range : <=0.5. The reference r annemarie was not used to int erpret this result as normal/abnormal . [facility] TexasJjdmvqhKKSHIGSKAA6663-60-24 03:21:00 Test Item Value Reference Range Interpretation Comments Segs (test code = Segs) 64.7 45.0-75.0 [facility] TexasCARDIAC YKNTEUW3317-35-90 03:21:00 Test Item Value Reference Range Interpretation Comments Total CK (test code = Total CK) 3725 12-191 [facility] HospitalMzniquwEDSLWQZMZEVW6920-91-57 03:21:00 Test Item Value Reference Range Interpretation Comments AGAP (test code = AGAP) 14.1 10.0-20.0 [facility] HospitalWmoqawrSRSLMNHEPPZH0656-79-81 03:21:00 Test Item Value Reference Range Interpretation Comments B/C Ratio (test code = B/C Ratio) 11 6-25 [facility] HospitalMldgxexBOYWUZEZUVRC0900-07-32 03:21:00 Test Item Value Reference Range Interpretation Comments Globulin (test code = Globulin) 3.2 2.7-4.2 [facility] HospitalYuofaqnJFWWHCETADQB9962-67-67 03:21:00 Test Item Value Reference Range Interpretation Comments A/G Ratio (test code = A/G Ratio) 1.3 0.7-1.6 [facility] HospitalWpvtaeyHUMEGQMSJWOT6799-45-37 03:21:00 Test Item Value Reference Range Interpretation Comments Bili Total (test code = Bili Total) 0.4 0.2-1.3 [facility] HospitalAbeyfufWMBKWOJKKJLK9708-26-66 03:21:00 Test Item Value Reference Range Interpretation Comments eGFR (test code = eGFR) 102 [facility] HospitalJggrydrDXQKDPSTMBZK2386-38-32 03:21:00 Test Item Value Reference Range Interpretation Comments Albumin Lvl (test code = Albumin Lvl) 4.2 3.5-5.0 [facility] HospitalCgiafqcCXVWTYECBVAM9697-39-83 03:21:00 Test Item Value Reference Range Interpretation Comments Alk Phos (test code = Alk Phos) 48 39-136 [facility] HospitalTcdrttqFDPTVSRVQQUB6652-03-89 03:21:00 Test Item Value Reference Range Interpretation Comments AST (test code = AST) 144 See_Comment [Auto mated message] The system which ge nerated this result transmit abdelrahman reference range : <=37. The reference range was not used to interpr et this result as gurpreet l/abnormal. [facility] HospitalFbidxkuWHVNVZIZSLBR3075-20-42 03:21:00 Test Item Value Reference Range Interpretation Comments Glucose Lvl (test code = Glucose Lvl) 75 70-99 [facility] HospitalJutcivjSJKCXAIKTHPN9323-27-41 03:21:00 Test Item Value Reference Range Interpretation Comments BUN (test code = BUN) 11 7-22 [facility] HospitalGkiowjtHSDTXJWZCCSR9635-05-75 03:21:00 Test Item Value Reference Range Interpretation Comments Potassium Lvl (test code = Potassium 4.1 3.5-5.1 Lvl) [facility] HospitalInbjoceRYIIDXZUBOTC2870-26-18 03:21:00 Test Item Value Reference Range Interpretation Comments Creatinine Lvl (test code = Creatinine 1.00 0.50-1.40 Lvl) [facility] HospitalBafeicxSWGQJMTPMZEO6035-79-80 03:21:00 Test Item Value Reference Range Interpretation Comments Sodium Lvl (test code = Sodium Lvl) 140 135-145 [facility] HospitalYxxoppiDNSLXHRAKVQX7131-82-46 03:21:00 Test Item Value Reference Range Interpretation Comments Chloride Lvl (test code = Chloride Lvl) 106 95-109 [facility] HospitalHdetmlhBCQUUIDKJEYA1271-37-98 03:21:00 Test Item Value Reference Range Interpretation Comments CO2 (test code = CO2) 24 24-32 [facility] HospitalGqkpkrgREYCUKDDFCAP2318-13-05 03:21:00 Test Item Value Reference Range Interpretation Comments Total Protein (test code = Total 7.4 6.4-8.4 Protein) [facility] HospitalXwkosqiCPESIBJAZXLZ1272-32-88 03:21:00 Test Item Value Reference Range Interpretation Comments Calcium Lvl (test code = Calcium Lvl) 9.1 8.5-10.5 [facility] HospitalEfmlnoaGQCPQDPQQYPK8787-32-95 03:21:00 Test Item Value Reference Range Interpretation Comments ALT (test code = ALT) 52 See_Comment [Auto mated message] The system which ge nerated this result transmit abdelrahman reference range : <=65. The reference range was not used to interpr et this result as gurpreet l/abnormal. [facility]PzcmkjhXJYBITUIIF1971-96-83 03:21:00 Test Item Value Reference Range Interpretation Comments MCV (test code = MCV) 86.0 80.0-94.0 [facility] CypressPrlncpdOCNGDOONHB7153-32-73 03:21:00 Test Item Value Reference Range Interpretation Comments MCH (test code = MCH) 29.7 pg 27.0-31.0 [facility]ressIydrtejVHUAACTZSJ5864-73-52 03:21:00 Test Item Value Reference Range Interpretation Comments Hct (test code = Hct) 41.0 42.0-54.0 [facility]ressEruimpgNXYHIBQBBV0412-07-33 03:21:00 Test Item Value Reference Range Interpretation Comments RBC (test code = RBC) 4.77 4.70-6.10 [facility]ressIhhlvkeVAYBBWJGBM2075-11-17 03:21:00 Test Item Value Reference Range Interpretation Comments WBC (test code = WBC) 8.8 3.7-10.4 [facility] CypressHkvkkudVTXXKCMATK6819-93-51 03:21:00 Test Item Value Reference Range Interpretation Comments Hgb (test code = Hgb) 14.2 14.0-18.0 [facility] CypressNlgqutaVGFRKTVYMK3133-82-85 03:21:00 Test Item Value Reference Range Interpretation Comments Platelet (test code = Platelet) 141 133-450 [facility] CypressGzptjzcVMDOFOOTAS4775-81-04 03:21:00 Test Item Value Reference Range Interpretation Comments MCHC (test code = MCHC) 34.5 32.0-36.0 [facility] CypressEztyhwxODOLREAEHL5819-25-65 03:21:00 Test Item Value Reference Range Interpretation Comments RDW (test code = RDW) 13.5 11.5-14.5 [facility] CypressOoihcraWNDOYXGRTG1677-27-53 03:21:00 Test Item Value Reference Range Interpretation Comments MPV (test code = MPV) 8.9 7.4-10.4 [facility] CypressVoqwitiSNBVSKIOTN2206-45-07 03:21:00 Test Item Value Reference Range Interpretation Comments Lymphocytes (test code = Lymphocytes) 21.1 20.0-40.0 [facility] CypressBwvrwimVVVNORZYOJ2489-16-68 03:21:00 Test Item Value Reference Range Interpretation Comments Monocytes (test code = Monocytes) 11.7 2.0-12.0 [facility] CypressAvxwcyaPBKMKZQGQI6043-86-76 03:21:00 Test Item Value Reference Range Interpretation Comments Lymphocytes # (test code = Lymphocytes 1.8 1.0-5.5 #) [facility] CypressBdcewkqXCKVWXLHPI3361-34-75 03:21:00 Test Item Value Reference Range Interpretation Comments Segs-Bands # (test code = Segs-Bands #) 5.7 1.5-8.1 [facility]ressOhrjqkmYCDYCNVDUY8956-16-43 03:21:00 Test Item Value Reference Range Interpretation Comments Eosinophils (test code = 1.7 See_Comment [A utomated message] The Eosinophils) system which ge nerated this result tra nsmitted reference range : <=4.0. The reference r annemarie was not used to int erpret this result as normal/abnormal . [facility] CypressVkdevyfPRNEOOZGAK1801-97-51 03:21:00 Test Item Value Reference Range Interpretation Comments Basophils (test code = 0.8 See_Comment [Aut omated message] The Basophils) system which ge nerated this result tra nsmitted reference range : <=1.0. The reference r annemarie was not used to int erpret this result as normal/abnormal . [facility] CypressSakarwoNWPWSKLRGI2278-86-50 03:21:00 Test Item Value Reference Range Interpretation Comments Basophils # (test code 0.1 See_Comment [Aut omated message] The = Basophils #) system which generated this result tra nsmitted reference range : <=0.2. The reference r annemarie was not used to int erpret this result as normal/abnormal . [facility] CypressArxstdgQTDPGBXKUN7830-12-04 03:21:00 Test Item Value Reference Range Interpretation Comments Monocytes # (test code 1.0 See_Comment [Aut omated message] The = Monocytes #) system which generated this result tra nsmitted reference range : <=0.8. The reference r annemarie was not used to int erpret this result as normal/abnormal . [facility] CypressRevirwlNTBMIRYHNL4419-91-11 03:21:00 Test Item Value Reference Range Interpretation Comments Eosinophils # (test code 0.2 See_Comment [A utomated message] The = Eosinophils #) system whic h generated this result tra nsmitted reference range : <=0.5. The reference r annemarie was not used to int erpret this result as normal/abnormal . [facility] CypressVlhamhaQSMGVVWWCG3627-59-25 03:21:00 Test Item Value Reference Range Interpretation Comments Segs (test code = Segs) 64.7 45.0-75.0 [facility] AALBRMJ0601-16-23 03:21:00 Test Item Value Reference Range Interpretation Comments Total CK (test code = Total CK) 3725 12-191 [facility] HospitalUvgetyzHPQVXWXXGTHT8456-92-44 03:21:00 Test Item Value Reference Range Interpretation Comments AGAP (test code = AGAP) 14.1 10.0-20.0 [facility] HospitalQrziiluTNABELMMNIYG2894-75-41 03:21:00 Test Item Value Reference Range Interpretation Comments B/C Ratio (test code = B/C Ratio) 11 6-25 [facility] HospitalLboontpWFMRPIADGSKU9265-37-21 03:21:00 Test Item Value Reference Range Interpretation Comments Globulin (test code = Globulin) 3.2 2.7-4.2 [facility] HospitalGpldzejCTUMHNITATRV8542-73-68 03:21:00 Test Item Value Reference Range Interpretation Comments A/G Ratio (test code = A/G Ratio) 1.3 0.7-1.6 [facility] HospitalUgrannlTKQGJZEOMFMA6196-66-98 03:21:00 Test Item Value Reference Range Interpretation Comments Bili Total (test code = Bili Total) 0.4 0.2-1.3 [facility] HospitalXmcxsucONJADRLOOSCY0480-77-22 03:21:00 Test Item Value Reference Range Interpretation Comments eGFR (test code = eGFR) 102 [facility] HospitalMrrxrwcPPAAMAWOLMXL2607-48-97 03:21:00 Test Item Value Reference Range Interpretation Comments Albumin Lvl (test code = Albumin Lvl) 4.2 3.5-5.0 [facility] HospitalGthcqcmTEHZPQAFLKOW4433-83-19 03:21:00 Test Item Value Reference Range Interpretation Comments Alk Phos (test code = Alk Phos) 48 39-136 [facility] HospitalVjndeelYUKQTMKHOVSM4542-65-02 03:21:00 Test Item Value Reference Range Interpretation Comments AST (test code = AST) 144 See_Comment [Auto mated message] The system which ge nerated this result transmit abdelrahman reference range : <=37. The reference range was not used to interpr et this result as gurpreet l/abnormal. [facility] HospitalNihmlwcPUEXKNAMLMTC0339-80-57 03:21:00 Test Item Value Reference Range Interpretation Comments Glucose Lvl (test code = Glucose Lvl) 75 70-99 [facility] HospitalRrjmwlxMZPQHAPKJSYW2201-10-62 03:21:00 Test Item Value Reference Range Interpretation Comments BUN (test code = BUN) 11 7-22 [facility] HospitalMchrsmtKLSTVLSUVZKU1928-53-04 03:21:00 Test Item Value Reference Range Interpretation Comments Potassium Lvl (test code = Potassium 4.1 3.5-5.1 Lvl) [facility] HospitalHldvxnbPPHWEVUFUMHS5362-26-60 03:21:00 Test Item Value Reference Range Interpretation Comments Creatinine Lvl (test code = Creatinine 1.00 0.50-1.40 Lvl) [facility] HospitalAgbhzaqSCBYUUUZYYRC9291-36-58 03:21:00 Test Item Value Reference Range Interpretation Comments Sodium Lvl (test code = Sodium Lvl) 140 135-145 [facility] HospitalKurntdlUCFZLTQCRTKS7935-65-42 03:21:00 Test Item Value Reference Range Interpretation Comments Chloride Lvl (test code = Chloride Lvl) 106 95-109 [facility] HospitalShataokGMCEPSIRZHUB1758-76-21 03:21:00 Test Item Value Reference Range Interpretation Comments CO2 (test code = CO2) 24 24-32 [facility] HospitalJlbrmqbPCDSFBKTVIZL5985-30-87 03:21:00 Test Item Value Reference Range Interpretation Comments Total Protein (test code = Total 7.4 6.4-8.4 Protein) [facility] HospitalKvrikflNXRBYJRMINKC4897-26-30 03:21:00 Test Item Value Reference Range Interpretation Comments Calcium Lvl (test code = Calcium Lvl) 9.1 8.5-10.5 [facility] HospitalCiqqfvzWHBGLBVFVGGE1221-92-06 03:21:00 Test Item Value Reference Range Interpretation Comments ALT (test code = ALT) 52 See_Comment [Auto mated message] The system which ge nerated this result transmit abdelrahman reference range : <=65. The reference range was not used to interpr et this result as gurpreet l/abnormal. [facility]ressLdqeuoeDOKBSDGHED4010-89-22 03:21:00 Test Item Value Reference Range Interpretation Comments MCV (test code = MCV) 86.0 80.0-94.0 [facility] CypressRsvtthdXKNVEIMHNM2726-56-99 03:21:00 Test Item Value Reference Range Interpretation Comments MCH (test code = MCH) 29.7 pg 27.0-31.0 [facility] CypressBkgkltxFDJIQKCTTJ2139-25-22 03:21:00 Test Item Value Reference Range Interpretation Comments Hct (test code = Hct) 41.0 42.0-54.0 [facility] CypressWifhkeyCFAZPNDVMO4901-63-45 03:21:00 Test Item Value Reference Range Interpretation Comments RBC (test code = RBC) 4.77 4.70-6.10 [facility] CypressXrwgmisGHNJOGZSJZ4794-73-67 03:21:00 Test Item Value Reference Range Interpretation Comments WBC (test code = WBC) 8.8 3.7-10.4 [facility] CypressOnhsrxnSWWDOEHOKQ5963-20-18 03:21:00 Test Item Value Reference Range Interpretation Comments Hgb (test code = Hgb) 14.2 14.0-18.0 [facility] CypressRfmnvpdGIKFWUUGPI8966-22-90 03:21:00 Test Item Value Reference Range Interpretation Comments Platelet (test code = Platelet) 141 133-450 [facility] CypressDjuphmwHQQUJGNQIO3609-00-05 03:21:00 Test Item Value Reference Range Interpretation Comments MCHC (test code = MCHC) 34.5 32.0-36.0 [facility] CypressElztoufZDSDDQWXIA9148-12-66 03:21:00 Test Item Value Reference Range Interpretation Comments RDW (test code = RDW) 13.5 11.5-14.5 [facility] CypressGdmdrxuPDQYTLZGIX3240-30-11 03:21:00 Test Item Value Reference Range Interpretation Comments MPV (test code = MPV) 8.9 7.4-10.4 [facility] CypressPaquxiwMYUXWJOFET3884-44-85 03:21:00 Test Item Value Reference Range Interpretation Comments Lymphocytes (test code = Lymphocytes) 21.1 20.0-40.0 [facility] CypressCajwgdcINWPRXQTTB6365-89-05 03:21:00 Test Item Value Reference Range Interpretation Comments Monocytes (test code = Monocytes) 11.7 2.0-12.0 [facility] CypressWuwbprvEESHJLBJCA9639-86-48 03:21:00 Test Item Value Reference Range Interpretation Comments Lymphocytes # (test code = Lymphocytes 1.8 1.0-5.5 #) [facility] CypressXanzfrgXIXAUPCKUY5633-69-22 03:21:00 Test Item Value Reference Range Interpretation Comments Segs-Bands # (test code = Segs-Bands #) 5.7 1.5-8.1 [facility] CypressCuundfsCGZAWXKEKW1235-40-86 03:21:00 Test Item Value Reference Range Interpretation Comments Eosinophils (test code = 1.7 See_Comment [A utomated message] The Eosinophils) system which ge nerated this result tra nsmitted reference range : <=4.0. The reference r annemarie was not used to int erpret this result as normal/abnormal . [facility] CypressDuuizskPCTZWUFMRR9071-02-84 03:21:00 Test Item Value Reference Range Interpretation Comments Basophils (test code = 0.8 See_Comment [Aut omated message] The Basophils) system which ge nerated this result tra nsmitted reference range : <=1.0. The reference r annemarie was not used to int erpret this result as normal/abnormal . [facility] CypressLzrkbaiSTKYLEKNPC4144-81-39 03:21:00 Test Item Value Reference Range Interpretation Comments Basophils # (test code 0.1 See_Comment [Aut omated message] The = Basophils #) system which generated this result tra nsmitted reference range : <=0.2. The reference r annemarie was not used to int erpret this result as normal/abnormal . [facility] CypressFgoqzevJDKMFKEOPN4697-62-83 03:21:00 Test Item Value Reference Range Interpretation Comments Monocytes # (test code 1.0 See_Comment [Aut omated message] The = Monocytes #) system which generated this result tra nsmitted reference range : <=0.8. The reference r annemarie was not used to int erpret this result as normal/abnormal . [facility] CypressBwneaivYDPRJZGVAV6557-12-40 03:21:00 Test Item Value Reference Range Interpretation Comments Eosinophils # (test code 0.2 See_Comment [A utomated message] The = Eosinophils #) system whic h generated this result tra nsmitted reference range : <=0.5. The reference r annemarie was not used to int erpret this result as normal/abnormal . [facility] CypressPusyfbhIDTSTMLOAJ9140-21-09 03:21:00 Test Item Value Reference Range Interpretation Comments Segs (test code = Segs) 64.7 45.0-75.0 [place] [id number] 04:48:00 Test Item Value Reference Range Interpretation Comments Etoh (%) (test code = Etoh (%)) no gt [place] [id number] 04:48:00 Test Item Value Reference Range Interpretation Comments Ethanol Lvl (test code = Ethanol Lvl) [facility]scrvfiSVVRHBCHJH3942-60-96 04:48:00 Test Item Value Reference Range Interpretation Comments Etoh (%) (test code = Etoh (%)) no gt [facility] AwcruyhKWQQMBEWSC9437-73-37 04:48:00 Test Item Value Reference Range Interpretation Comments Ethanol Lvl (test code = Ethanol Lvl) no gt [facility] IyhxzwbWSILIRTIJF5817-46-05 04:48:00 Test Item Value Reference Range Interpretation Comments Etoh (%) (test code = Etoh (%)) no gt [facility] JoevajxGWMVLIZKXL5575-00-70 04:48:00 Test Item Value Reference Range Interpretation Comments Ethanol Lvl (test code = Ethanol Lvl) no gt [facility] TejcbdzCGNJCTVKSV5025-22-13 04:48:00 Test Item Value Reference Range Interpretation Comments Etoh (%) (test code = Etoh (%)) no gt [facility] NwhnqfqTBOOUHGVHY4695-62-93 04:48:00 Test Item Value Reference Range Interpretation Comments Ethanol Lvl (test code = Ethanol Lvl) no gt [facility] NmzwvviHHMWWXVIRQ4212-03-07 04:48:00 Test Item Value Reference Range Interpretation Comments Etoh (%) (test code = Etoh (%)) no gt [facility] NpfqgbcEGWOBHHRKF5056-67-48 04:48:00 Test Item Value Reference Range Interpretation Comments Ethanol Lvl (test code = Ethanol Lvl) no gt [facility] JgvvzflWWEHSHXSCR7346-33-52 04:48:00 Test Item Value Reference Range Interpretation Comments Etoh (%) (test code = Etoh (%)) no gt [facility] KkvjmqpSQUANRAAPC4978-53-91 04:48:00 Test Item Value Reference Range Interpretation Comments Ethanol Lvl (test code = Ethanol Lvl) no [facility] WBYDYB4536-55-15 02:43:00 Test Item Value Reference Range Interpretation Comments UDS Note (test code = See Note *NA*(04/06/16 UDS Note) 8:43 PM) [facility] [id number] 02:43:00 Test Item Value Reference Range Interpretation Comments U Opiate Scr (test Negative *NA*(04/06/16 code = U Opiate Scr) 8:43 PM) [facility] URXKVZ4717-34-34 02:43:00 Test Item Value Reference Range Interpretation Comments U Benzodia Scr (test Negative *NA*(04/06/16 code = U Benzodia Scr) 8:43 PM) [facility] ASYZKW9705-95-18 02:43:00 Test Item Value Reference Range Interpretation Comments U Cocaine Scr (test Negative *NA*(04/06/16 code = U Cocaine Scr) 8:43 PM) [facility] ZDZFKQ6840-39-00 02:43:00 Test Item Value Reference Range Interpretation Comments U Phencyc Scr (test Negative *NA*(04/06/16 code = U Phencyc Scr) 8:43 PM) [facility] [id number] 02:43:00 Test Item Value Reference Range Interpretation Comments U Odalys Scr (test code Negative *NA*(04/06/16 = U Odalys Scr) 8:43 PM) [facility] FXGDWL5822-06-16 02:43:00 Test Item Value Reference Range Interpretation Comments U Cannab Scr (test Negative *NA*(04/06/16 code = U Cannab Scr) 8:43 PM) [facility] NNJGUJ9945-42-40 02:43:00 Test Item Value Reference Range Interpretation Comments U Amph Scr (test code Negative *NA*(04/06/16 = U Amph Scr) 8:43 PM) [facility] [id number] 02:43:00 Test Item Value Reference Range Interpretation Comments UA WBC (test code = UA WBC) 3-5 /HPF [facility] [id number] 02:43:00 Test Item Value Reference Range Interpretation Comments UA Sq Epi (test code = UA Sq Epi) Rare /LPF [facility] [id number] 02:43:00 Test Item Value Reference Range Interpretation Comments UA RBC (test code = 0-2 /HPF See_Comment [Automa abdelrahman message] The UA RBC) system which ge nerated this result tra nsmitted reference range : <=2. The reference range was not used to interpr et this result as gurpreet l/abnormal. [facility] [id number] 02:43:00 Test Item Value Reference Range Interpretation Comments UA Bacteria (test code = UA Occasional /HPF Bacteria) [facility] [id number] 02:43:00 Test Item Value Reference Range Interpretation Comments UA Mucus (test code = UA Mucus) Few /LPF [facility] AND [id number] 02:43:00 Test Item Value Reference Range Interpretation Comments UA Glucose (test code Negative (04/06/16 8:43 = UA Glucose) PM) [facility] AND [id number] 02:43:00 Test Item Value Reference Range Interpretation Comments UA Protein (test code Negative (04/06/16 8:43 = UA Protein) PM) [facility] AND [id number] 02:43:00 Test Item Value Reference Range Interpretation Comments UA pH (test code = UA pH) 5.5 1 5.0-8.0 [facility] AND [id number] 02:43:00 Test Item Value Reference Range Interpretation Comments UA Spec Grav (test code = UA Spec 1.025 1 Grav) [facility] AND [id number] 02:43:00 Test Item Value Reference Range Interpretation Comments UA Ketones (test code = UA >=80 mg/dL Ketones) [facility] AND [id number] 02:43:00 Test Item Value Reference Range Interpretation Comments UA Nitrite (test code Negative (04/06/16 8:43 = UA Nitrite) PM) [facility] AND [id number] 02:43:00 Test Item Value Reference Range Interpretation Comments UA Urobilinogen (test code = UA 0.2 0.1-1.0 Urobilinogen) [facility] AND [id number] 02:43:00 Test Item Value Reference Range Interpretation Comments UA Blood (test code = Negative (04/06/16 8:43 UA Blood) PM) [facility] AND [id number] 02:43:00 Test Item Value Reference Range Interpretation Comments UA Bili (test code = Small *ABN*(04/06/16 UA Bili) 8:43 PM) [facility] AND [id number] 02:43:00 Test Item Value Reference Range Interpretation Comments UA Leuk Est (test code Trace *ABN*(04/06/16 = UA Leuk Est) 8:43 PM) [facility] AND [id number] 02:43:00 Test Item Value Reference Range Interpretation Comments UA Turbidity (test code = Clear (04/06/16 8:43 UA Turbidity) PM) [facility] [id number] 02:43:00 Test Item Value Reference Range Interpretation Comments UA Color (test code = Yellow *NA*(04/06/16 UA Color) 8:43 PM) [facility] [id number] 02:43:00 Test Item Value Reference Range Interpretation Comments UDS Note (test code = See Note *NA*(04/06/16 UDS Note) 8:43 PM) [facility] [id number] 02:43:00 Test Item Value Reference Range Interpretation Comments U Opiate Scr (test Negative *NA*(04/06/16 code = U Opiate Scr) 8:43 PM) [facility] [id number] 02:43:00 Test Item Value Reference Range Interpretation Comments U Benzodia Scr (test Negative *NA*(04/06/16 code = U Benzodia Scr) 8:43 PM) [facility] [id number] 02:43:00 Test Item Value Reference Range Interpretation Comments U Cocaine Scr (test Negative *NA*(04/06/16 code = U Cocaine Scr) 8:43 PM) [facility] [id number] 02:43:00 Test Item Value Reference Range Interpretation Comments U Phencyc Scr (test Negative *NA*(04/06/16 code = U Phencyc Scr) 8:43 PM) [facility] [id number] 02:43:00 Test Item Value Reference Range Interpretation Comments U Odalys Scr (test code Negative *NA*(04/06/16 = U Odalys Scr) 8:43 PM) [facility] [id number] 02:43:00 Test Item Value Reference Range Interpretation Comments U Cannab Scr (test Negative *NA*(04/06/16 code = U Cannab Scr) 8:43 PM) [facility] [id number] 02:43:00 Test Item Value Reference Range Interpretation Comments U Amph Scr (test code Negative *NA*(04/06/16 = U Amph Scr) 8:43 PM) [facility] [id number] 02:43:00 Test Item Value Reference Range Interpretation Comments UA WBC (test code = UA WBC) 3-5 /HPF [facility] AND [id number] 02:43:00 Test Item Value Reference Range Interpretation Comments UA Sq Epi (test code = UA Sq Epi) Rare /LPF [facility] AND [id number] 02:43:00 Test Item Value Reference Range Interpretation Comments UA RBC (test code = 0-2 /HPF See_Comment [Automa abdelrahman message] The UA RBC) system which ge nerated this result tra nsmitted reference range : <=2. The reference range was not used to interpr et this result as gurpreet l/abnormal. [facility] AND [id number] 02:43:00 Test Item Value Reference Range Interpretation Comments UA Bacteria (test code = UA Occasional /HPF Bacteria) [facility] AND [id number] 02:43:00 Test Item Value Reference Range Interpretation Comments UA Mucus (test code = UA Mucus) Few /LPF [facility] AND [id number] 02:43:00 Test Item Value Reference Range Interpretation Comments UA Glucose (test code Negative (04/06/16 8:43 = UA Glucose) PM) [facility] AND [id number] 02:43:00 Test Item Value Reference Range Interpretation Comments UA Protein (test code Negative (04/06/16 8:43 = UA Protein) PM) [facility] AND [id number] 02:43:00 Test Item Value Reference Range Interpretation Comments UA pH (test code = UA pH) 5.5 1 5.0-8.0 [facility] AND [id number] 02:43:00 Test Item Value Reference Range Interpretation Comments UA Spec Grav (test code = UA Spec 1.025 1 Grav) [facility] AND [id number] 02:43:00 Test Item Value Reference Range Interpretation Comments UA Ketones (test code = UA >=80 mg/dL Ketones) [facility] AND [id number] 02:43:00 Test Item Value Reference Range Interpretation Comments UA Nitrite (test code Negative (04/06/16 8:43 = UA Nitrite) PM) [facility] AND [id number] 02:43:00 Test Item Value Reference Range Interpretation Comments UA Urobilinogen (test code = UA 0.2 0.1-1.0 [facility]ilinogen) [facility] [id number] 02:43:00 Test Item Value Reference Range Interpretation Comments UA Blood (test code = Negative (04/06/16 8:43 UA Blood) PM) [facility] [id number] 02:43:00 Test Item Value Reference Range Interpretation Comments UA Bili (test code = Small *ABN*(04/06/16 UA Bili) 8:43 PM) [facility] [id number] 02:43:00 Test Item Value Reference Range Interpretation Comments UA Leuk Est (test code Trace *ABN*(04/06/16 = UA Leuk Est) 8:43 PM) [facility] [id number] 02:43:00 Test Item Value Reference Range Interpretation Comments UA Turbidity (test code = Clear (04/06/16 8:43 UA Turbidity) PM) [facility] [id number] 02:43:00 Test Item Value Reference Range Interpretation Comments UA Color (test code = Yellow *NA*(04/06/16 UA Color) 8:43 PM) [facility] [id number] 02:43:00 Test Item Value Reference Range Interpretation Comments UDS Note (test code = See Note *NA*(04/06/16 UDS Note) 8:43 PM) [facility] [id number] 02:43:00 Test Item Value Reference Range Interpretation Comments U Opiate Scr (test Negative *NA*(04/06/16 code = U Opiate Scr) 8:43 PM) [facility] [id number] 02:43:00 Test Item Value Reference Range Interpretation Comments U Benzodia Scr (test Negative *NA*(04/06/16 code = U Benzodia Scr) 8:43 PM) [facility] [id number] 02:43:00 Test Item Value Reference Range Interpretation Comments U Cocaine Scr (test Negative *NA*(04/06/16 code = U Cocaine Scr) 8:43 PM) [facility] [id number] 02:43:00 Test Item Value Reference Range Interpretation Comments U Phencyc Scr (test Negative *NA*(04/06/16 code = U Phencyc Scr) 8:43 PM) [facility] [id number] 02:43:00 Test Item Value Reference Range Interpretation Comments U Odalys Scr (test code Negative *NA*(04/06/16 = U Odalys Scr) 8:43 PM) [facility] [id number] 02:43:00 Test Item Value Reference Range Interpretation Comments U Cannab Scr (test Negative *NA*(04/06/16 code = U Cannab Scr) 8:43 PM) [facility] [id number] 02:43:00 Test Item Value Reference Range Interpretation Comments U Amph Scr (test code Negative *NA*(04/06/16 = U Amph Scr) 8:43 PM) [facility] [id number] 02:43:00 Test Item Value Reference Range Interpretation Comments UA WBC (test code = UA WBC) 3-5 /HPF [facility] [id number] 02:43:00 Test Item Value Reference Range Interpretation Comments UA Sq Epi (test code = UA Sq Epi) Rare /LPF [facility] [id number] 02:43:00 Test Item Value Reference Range Interpretation Comments UA RBC (test code = 0-2 /HPF See_Comment [Automa abdelrahman message] The UA RBC) system which ge nerated this result tra nsmitted reference range : <=2. The reference range was not used to interpr et this result as gurpreet l/abnormal. [facility] [id number] 02:43:00 Test Item Value Reference Range Interpretation Comments UA Bacteria (test code = UA Occasional /HPF Bacteria) [facility] [id number] 02:43:00 Test Item Value Reference Range Interpretation Comments UA Mucus (test code = UA Mucus) Few /LPF [facility] [id number] 02:43:00 Test Item Value Reference Range Interpretation Comments UA Glucose (test code Negative (04/06/16 8:43 = UA Glucose) PM) [facility] [id number] 02:43:00 Test Item Value Reference Range Interpretation Comments UA Protein (test code Negative (04/06/16 8:43 = UA Protein) PM) [facility] [id number] 02:43:00 Test Item Value Reference Range Interpretation Comments UA pH (test code = UA pH) 5.5 1 5.0-8.0 [facility] [id number] 02:43:00 Test Item Value Reference Range Interpretation Comments UA Spec Grav (test code = UA Spec 1.025 1 Grav) [facility] [id number] 02:43:00 Test Item Value Reference Range Interpretation Comments UA Ketones (test code = UA >=80 mg/dL Ketones) [facility] [id number] 02:43:00 Test Item Value Reference Range Interpretation Comments UA Nitrite (test code Negative (04/06/16 8:43 = UA Nitrite) PM) [facility] [id number] 02:43:00 Test Item Value Reference Range Interpretation Comments UA Urobilinogen (test code = UA 0.2 0.1-1.0 Urobilinogen) [facility] [id number] 02:43:00 Test Item Value Reference Range Interpretation Comments UA Blood (test code = Negative (04/06/16 8:43 UA Blood) PM) [facility] [id number] 02:43:00 Test Item Value Reference Range Interpretation Comments UA Bili (test code = Small *ABN*(04/06/16 UA Bili) 8:43 PM) [facility] [id number] 02:43:00 Test Item Value Reference Range Interpretation Comments UA Leuk Est (test code Trace *ABN*(04/06/16 = UA Leuk Est) 8:43 PM) [facility] [id number] 02:43:00 Test Item Value Reference Range Interpretation Comments UA Turbidity (test code = Clear (04/06/16 8:43 UA Turbidity) PM) [facility] [id number] 02:43:00 Test Item Value Reference Range Interpretation Comments UA Color (test code = Yellow *NA*(04/06/16 UA Color) 8:43 PM) [facility] [id number] 02:43:00 Test Item Value Reference Range Interpretation Comments UDS Note (test code = See Note *NA*(04/06/16 UDS Note) 8:43 PM) [facility] [id number] 02:43:00 Test Item Value Reference Range Interpretation Comments U Opiate Scr (test Negative *NA*(04/06/16 code = U Opiate Scr) 8:43 PM) [facility] [id number] 02:43:00 Test Item Value Reference Range Interpretation Comments U Benzodia Scr (test Negative *NA*(04/06/16 code = U Benzodia Scr) 8:43 PM) [facility] [id number] 02:43:00 Test Item Value Reference Range Interpretation Comments U Cocaine Scr (test Negative *NA*(04/06/16 code = U Cocaine Scr) 8:43 PM) [facility] [id number] 02:43:00 Test Item Value Reference Range Interpretation Comments U Phencyc Scr (test Negative *NA*(04/06/16 code = U Phencyc Scr) 8:43 PM) [facility] [id number] 02:43:00 Test Item Value Reference Range Interpretation Comments U Odalys Scr (test code Negative *NA*(04/06/16 = U Odalys Scr) 8:43 PM) [facility] [id number] 02:43:00 Test Item Value Reference Range Interpretation Comments U Cannab Scr (test Negative *NA*(04/06/16 code = U Cannab Scr) 8:43 PM) [facility] [id number] 02:43:00 Test Item Value Reference Range Interpretation Comments U Amph Scr (test code Negative *NA*(04/06/16 = U Amph Scr) 8:43 PM) [facility] [id number] 02:43:00 Test Item Value Reference Range Interpretation Comments UA WBC (test code = UA WBC) 3-5 /HPF [facility] [id number] 02:43:00 Test Item Value Reference Range Interpretation Comments UA Sq Epi (test code = UA Sq Epi) Rare /LPF [facility] [id number] 02:43:00 Test Item Value Reference Range Interpretation Comments UA RBC (test code = 0-2 /HPF See_Comment [Automa abdelrahman message] The UA RBC) system which ge nerated this result tra nsmitted reference range : <=2. The reference range was not used to interpr et this result as gurpreet l/abnormal. [facility] AND [id number] 02:43:00 Test Item Value Reference Range Interpretation Comments UA Bacteria (test code = UA Occasional /HPF Bacteria) [facility] AND [id number] 02:43:00 Test Item Value Reference Range Interpretation Comments UA Mucus (test code = UA Mucus) Few /LPF [facility] AND [id number] 02:43:00 Test Item Value Reference Range Interpretation Comments UA Glucose (test code Negative (04/06/16 8:43 = UA Glucose) PM) [facility] AND [id number] 02:43:00 Test Item Value Reference Range Interpretation Comments UA Protein (test code Negative (04/06/16 8:43 = UA Protein) PM) [facility] AND [id number] 02:43:00 Test Item Value Reference Range Interpretation Comments UA pH (test code = UA pH) 5.5 1 5.0-8.0 [facility] AND [id number] 02:43:00 Test Item Value Reference Range Interpretation Comments UA Spec Grav (test code = UA Spec 1.025 1 Grav) [facility] AND [id number] 02:43:00 Test Item Value Reference Range Interpretation Comments UA Ketones (test code = UA >=80 mg/dL Ketones) [facility] AND [id number] 02:43:00 Test Item Value Reference Range Interpretation Comments UA Nitrite (test code Negative (04/06/16 8:43 = UA Nitrite) PM) [facility] AND [id number] 02:43:00 Test Item Value Reference Range Interpretation Comments UA Urobilinogen (test code = UA 0.2 0.1-1.0 Urobilinogen) [facility] AND [id number] 02:43:00 Test Item Value Reference Range Interpretation Comments UA Blood (test code = Negative (04/06/16 8:43 UA Blood) PM) [facility] AND [id number] 02:43:00 Test Item Value Reference Range Interpretation Comments UA Bili (test code = Small *ABN*(04/06/16 UA Bili) 8:43 PM) [facility] AND [id number] 02:43:00 Test Item Value Reference Range Interpretation Comments UA Leuk Est (test code Trace *ABN*(04/06/16 = UA Leuk Est) 8:43 PM) [facility] [id number] 02:43:00 Test Item Value Reference Range Interpretation Comments UA Turbidity (test code = Clear (04/06/16 8:43 UA Turbidity) PM) [facility] [id number] 02:43:00 Test Item Value Reference Range Interpretation Comments UA Color (test code = Yellow *NA*(04/06/16 UA Color) 8:43 PM) [facility] [id number] 02:43:00 Test Item Value Reference Range Interpretation Comments UDS Note (test code = See Note *NA*(04/06/16 UDS Note) 8:43 PM) [facility] [id number] 02:43:00 Test Item Value Reference Range Interpretation Comments U Opiate Scr (test Negative *NA*(04/06/16 code = U Opiate Scr) 8:43 PM) [facility] [id number] 02:43:00 Test Item Value Reference Range Interpretation Comments U Benzodia Scr (test Negative *NA*(04/06/16 code = U Benzodia Scr) 8:43 PM) [facility] [id number] 02:43:00 Test Item Value Reference Range Interpretation Comments U Cocaine Scr (test Negative *NA*(04/06/16 code = U Cocaine Scr) 8:43 PM) [facility] [id number] 02:43:00 Test Item Value Reference Range Interpretation Comments U Phencyc Scr (test Negative *NA*(04/06/16 code = U Phencyc Scr) 8:43 PM) [facility] [id number] 02:43:00 Test Item Value Reference Range Interpretation Comments U Odalys Scr (test code Negative *NA*(04/06/16 = U Odalys Scr) 8:43 PM) [facility] [id number] 02:43:00 Test Item Value Reference Range Interpretation Comments U Cannab Scr (test Negative *NA*(04/06/16 code = U Cannab Scr) 8:43 PM) [facility] [id number] 02:43:00 Test Item Value Reference Range Interpretation Comments U Amph Scr (test code Negative *NA*(04/06/16 = U Amph Scr) 8:43 PM) [facility] AND [id number] 02:43:00 Test Item Value Reference Range Interpretation Comments UA WBC (test code = UA WBC) 3-5 /HPF [facility] AND [id number] 02:43:00 Test Item Value Reference Range Interpretation Comments UA Sq Epi (test code = UA Sq Epi) Rare /LPF [facility] AND [id number] 02:43:00 Test Item Value Reference Range Interpretation Comments UA RBC (test code = 0-2 /HPF See_Comment [Automa abdelrahman message] The UA RBC) system which ge nerated this result tra nsmitted reference range : <=2. The reference range was not used to interpr et this result as gurpreet l/abnormal. [facility] AND [id number] 02:43:00 Test Item Value Reference Range Interpretation Comments UA Bacteria (test code = UA Occasional /HPF Bacteria) [facility] AND [id number] 02:43:00 Test Item Value Reference Range Interpretation Comments UA Mucus (test code = UA Mucus) Few /LPF [facility] AND [id number] 02:43:00 Test Item Value Reference Range Interpretation Comments UA Glucose (test code Negative (04/06/16 8:43 = UA Glucose) PM) [facility] AND [id number] 02:43:00 Test Item Value Reference Range Interpretation Comments UA Protein (test code Negative (04/06/16 8:43 = UA Protein) PM) [facility] AND [id number] 02:43:00 Test Item Value Reference Range Interpretation Comments UA pH (test code = UA pH) 5.5 1 5.0-8.0 [facility] AND [id number] 02:43:00 Test Item Value Reference Range Interpretation Comments UA Spec Grav (test code = UA Spec 1.025 1 Grav) [facility] AND [id number] 02:43:00 Test Item Value Reference Range Interpretation Comments UA Ketones (test code = UA >=80 mg/dL Ketones) [facility] AND [id number] 02:43:00 Test Item Value Reference Range Interpretation Comments UA Nitrite (test code Negative (04/06/16 8:43 = UA Nitrite) PM) [facility] [id number] 02:43:00 Test Item Value Reference Range Interpretation Comments UA Urobilinogen (test code = UA 0.2 0.1-1.0 Urobilinogen) [facility] [id number] 02:43:00 Test Item Value Reference Range Interpretation Comments UA Blood (test code = Negative (04/06/16 8:43 UA Blood) PM) [facility] [id number] 02:43:00 Test Item Value Reference Range Interpretation Comments UA Bili (test code = Small *ABN*(04/06/16 UA Bili) 8:43 PM) [facility] [id number] 02:43:00 Test Item Value Reference Range Interpretation Comments UA Leuk Est (test code Trace *ABN*(04/06/16 = UA Leuk Est) 8:43 PM) [facility] [id number] 02:43:00 Test Item Value Reference Range Interpretation Comments UA Turbidity (test code = Clear (04/06/16 8:43 UA Turbidity) PM) [facility] [id number] 02:43:00 Test Item Value Reference Range Interpretation Comments UA Color (test code = Yellow *NA*(04/06/16 UA Color) 8:43 PM) [facility] [id number] 02:43:00 Test Item Value Reference Range Interpretation Comments UDS Note (test code = See Note *NA*(04/06/16 UDS Note) 8:43 PM) [facility] [id number] 02:43:00 Test Item Value Reference Range Interpretation Comments U Opiate Scr (test Negative *NA*(04/06/16 code = U Opiate Scr) 8:43 PM) [facility] [id number] 02:43:00 Test Item Value Reference Range Interpretation Comments U Benzodia Scr (test Negative *NA*(04/06/16 code = U Benzodia Scr) 8:43 PM) [facility] [id number] 02:43:00 Test Item Value Reference Range Interpretation Comments U Cocaine Scr (test Negative *NA*(04/06/16 code = U Cocaine Scr) 8:43 PM) [facility] [id number] 02:43:00 Test Item Value Reference Range Interpretation Comments U Phencyc Scr (test Negative *NA*(04/06/16 code = U Phencyc Scr) 8:43 PM) [facility] [id number] 02:43:00 Test Item Value Reference Range Interpretation Comments U Odalys Scr (test code Negative *NA*(04/06/16 = U Odalys Scr) 8:43 PM) [facility] [id number] 02:43:00 Test Item Value Reference Range Interpretation Comments U Cannab Scr (test Negative *NA*(04/06/16 code = U Cannab Scr) 8:43 PM) [facility] [id number] 02:43:00 Test Item Value Reference Range Interpretation Comments U Amph Scr (test code Negative *NA*(04/06/16 = U Amph Scr) 8:43 PM) [facility] [id number] 02:43:00 Test Item Value Reference Range Interpretation Comments UA WBC (test code = UA WBC) 3-5 /HPF [facility] [id number] 02:43:00 Test Item Value Reference Range Interpretation Comments UA Sq Epi (test code = UA Sq Epi) Rare /LPF [facility] [id number] 02:43:00 Test Item Value Reference Range Interpretation Comments UA RBC (test code = 0-2 /HPF See_Comment [Automa abdelrahman message] The UA RBC) system which ge nerated this result tra nsmitted reference range : <=2. The reference range was not used to interpr et this result as gurpreet l/abnormal. [facility] [id number] 02:43:00 Test Item Value Reference Range Interpretation Comments UA Bacteria (test code = UA Occasional /HPF Bacteria) [facility] [id number] 02:43:00 Test Item Value Reference Range Interpretation Comments UA Mucus (test code = UA Mucus) Few /LPF [facility] [id number] 02:43:00 Test Item Value Reference Range Interpretation Comments UA Glucose (test code Negative (04/06/16 8:43 = UA Glucose) PM) [facility] [id number] 02:43:00 Test Item Value Reference Range Interpretation Comments UA Protein (test code Negative (04/06/16 8:43 = UA Protein) PM) [facility] [id number] 02:43:00 Test Item Value Reference Range Interpretation Comments UA pH (test code = UA pH) 5.5 1 5.0-8.0 [facility] [id number] 02:43:00 Test Item Value Reference Range Interpretation Comments UA Spec Grav (test code = UA Spec 1.025 1 Grav) [facility] [id number] 02:43:00 Test Item Value Reference Range Interpretation Comments UA Ketones (test code = UA >=80 mg/dL Ketones) [facility] [id number] 02:43:00 Test Item Value Reference Range Interpretation Comments UA Nitrite (test code Negative (04/06/16 8:43 = UA Nitrite) PM) [facility] [id number] 02:43:00 Test Item Value Reference Range Interpretation Comments UA Urobilinogen (test code = UA 0.2 0.1-1.0 Urobilinogen) [facility] [id number] 02:43:00 Test Item Value Reference Range Interpretation Comments UA Blood (test code = Negative (04/06/16 8:43 UA Blood) PM) [facility] [id number] 02:43:00 Test Item Value Reference Range Interpretation Comments UA Bili (test code = Small *ABN*(04/06/16 UA Bili) 8:43 PM) [facility] AND [id number] 02:43:00 Test Item Value Reference Range Interpretation Comments UA Leuk Est (test code Trace *ABN*(04/06/16 = UA Leuk Est) 8:43 PM) [facility] [id number] 02:43:00 Test Item Value Reference Range Interpretation Comments UA Turbidity (test code = Clear (04/06/16 8:43 UA Turbidity) PM) [facility] [id number] 02:43:00 Test Item Value Reference Range Interpretation Comments UA Color (test code = Yellow *NA*(04/06/16 UA Color) 8:43 PM) [facility] [id number] 02:38:00 Test Item Value Reference Range Interpretation Comments Total CK (test code = Total CK) 598 12-191 [facility]2016-12-08 02:38:00 Test Item Value Reference Range Interpretation Comments eGFR (test code = eGFR) 121 [facility]2016-12-08 02:38:00 Test Item Value Reference Range Interpretation Comments Calcium Lvl (test code = Calcium Lvl) 9.2 8.5-10.5 [facility]2016-12-08 02:38:00 Test Item Value Reference Range Interpretation Comments Total Protein (test code = Total 7.6 6.4-8.4 Protein) [facility]2016-12-08 02:38:00 Test Item Value Reference Range Interpretation Comments CO2 (test code = CO2) 22 24-32 [facility]2016-12-08 02:38:00 Test Item Value Reference Range Interpretation Comments AST (test code = AST) 43 See_Comment [Auto mated message] The system which ge nerated this result transmit abdelrahman reference range : <=37. The reference range was not used to interpr et this result as gurpreet l/abnormal. [facility]2016-12-08 02:38:00 Test Item Value Reference Range Interpretation Comments Albumin Lvl (test code = Albumin Lvl) 4.4 3.5-5.0 [facility]2016-12-08 02:38:00 Test Item Value Reference Range Interpretation Comments ALT (test code = ALT) 22 See_Comment [Auto mated message] The system which ge nerated this result transmit abdelrahman reference range : <=65. The reference range was not used to interpr et this result as grupreet l/abnormal. [facility]2016-12-08 02:38:00 Test Item Value Reference Range Interpretation Comments Chloride Lvl (test code = Chloride Lvl) 101 95-109 [facility]2016-12-08 02:38:00 Test Item Value Reference Range Interpretation Comments Creatinine Lvl (test code = Creatinine 0.81 0.50-1.40 Lvl) [facility]2016-12-08 02:38:00 Test Item Value Reference Range Interpretation Comments Sodium Lvl (test code = Sodium Lvl) 136 135-145 [facility]2016-12-08 02:38:00 Test Item Value Reference Range Interpretation Comments Potassium Lvl (test code = Potassium 4.4 3.5-5.1 Lvl) [facility]2016-12-08 02:38:00 Test Item Value Reference Range Interpretation Comments Bili Total (test code = Bili Total) 0.9 0.2-1.3 [facility]2016-12-08 02:38:00 Test Item Value Reference Range Interpretation Comments Alk Phos (test code = Alk Phos) 34 39-136 [facility]2016-12-08 02:38:00 Test Item Value Reference Range Interpretation Comments Glucose Lvl (test code = Glucose Lvl) 63 70-99 [facility]2016-12-08 02:38:00 Test Item Value Reference Range Interpretation Comments BUN (test code = BUN) 14 7-22 [facility]2016-12-08 02:38:00 Test Item Value Reference Range Interpretation Comments AGAP (test code = AGAP) 17.4 10.0-20.0 [facility]2016-12-08 02:38:00 Test Item Value Reference Range Interpretation Comments B/C Ratio (test code = B/C Ratio) 17 6-25 [facility]2016-12-08 02:38:00 Test Item Value Reference Range Interpretation Comments Globulin (test code = Globulin) 3.2 2.7-4.2 [facility]2016-12-08 02:38:00 Test Item Value Reference Range Interpretation Comments A/G Ratio (test code = A/G Ratio) 1.4 0.7-1.6 [id number] 02:38:00 Test Item Value Reference Range Interpretation Comments Lymphocytes # (test code = Lymphocytes 1.7 1.0-5.5 #) [facility] [id number] 02:38:00 Test Item Value Reference Range Interpretation Comments Eosinophils (test code = 1.0 See_Comment [A utomated message] The Eosinophils) system which ge nerated this result tra nsmitted reference range : <=4.0. The reference r annemarie was not used to int erpret this result as normal/abnormal . [facility] [id number] 02:38:00 Test Item Value Reference Range Interpretation Comments Basophils (test code = 0.4 See_Comment [Aut omated message] The Basophils) system which ge nerated this result tra nsmitted reference range : <=1.0. The reference r annemarie was not used to int erpret this result as normal/abnormal . [facility] [id number] 02:38:00 Test Item Value Reference Range Interpretation Comments Segs-Bands # (test code = Segs-Bands #) 4.2 1.5-8.1 [facility] [id number] 02:38:00 Test Item Value Reference Range Interpretation Comments Monocytes (test code = Monocytes) 9.2 2.0-12.0 [facility] [id number] 02:38:00 Test Item Value Reference Range Interpretation Comments Monocytes # (test code 0.6 See_Comment [Aut omated message] The = Monocytes #) system which generated this result tra nsmitted reference range : <=0.8. The reference r annemarie was not used to int erpret this result as normal/abnormal . [facility] [place]KhebemjQOLNMGYMVK2281-79-53 02:38:00 Test Item Value Reference Range Interpretation Comments Eosinophils # (test code 0.1 See_Comment [A utomated message] The = Eosinophils #) system whic h generated this result tra nsmitted reference range : <=0.5. The reference r annemarie was not used to int erpret this result as normal/abnormal . [facility] CypressJdingrqTCWWBZMYVP9710-06-10 02:38:00 Test Item Value Reference Range Interpretation Comments Lymphocytes (test code = Lymphocytes) 26.3 20.0-40.0 [facility] CypressNbvbtttTVACTYEZSW9714-10-29 02:38:00 Test Item Value Reference Range Interpretation Comments Segs (test code = Segs) 63.1 45.0-75.0 [facility] CypressPaqmyofAYPDURLSWQ0113-85-17 02:38:00 Test Item Value Reference Range Interpretation Comments WBC (test code = WBC) 6.6 3.7-10.4 [facility] CypressYcxdkxxZQZSCPZTEL8444-40-74 02:38:00 Test Item Value Reference Range Interpretation Comments Hct (test code = Hct) 42.9 42.0-54.0 [facility] CypressVexkkdpMHVQHWHSAY3300-46-26 02:38:00 Test Item Value Reference Range Interpretation Comments RBC (test code = RBC) 4.86 4.70-6.10 [facility] CypressWuvaxtqCYIEANQWVD1752-86-97 02:38:00 Test Item Value Reference Range Interpretation Comments Hgb (test code = Hgb) 14.4 14.0-18.0 [facility] CypressXbitgeqLETWPYMBFZ6744-52-93 02:38:00 Test Item Value Reference Range Interpretation Comments MCV (test code = MCV) 88.3 80.0-94.0 [facility] CypressJlmbumbHSNXTSTYAM3674-76-65 02:38:00 Test Item Value Reference Range Interpretation Comments MCH (test code = MCH) 29.6 pg 27.0-31.0 [facility] CypressHnlkmvmUQLUIKNRBY4789-39-68 02:38:00 Test Item Value Reference Range Interpretation Comments MCHC (test code = MCHC) 33.6 32.0-36.0 [facility] CypressMjxhpiuNULOKPZYXZ9420-89-29 02:38:00 Test Item Value Reference Range Interpretation Comments MPV (test code = MPV) 9.4 7.4-10.4 [facility] CypressSschoniRPWBVHNMYL1303-11-69 02:38:00 Test Item Value Reference Range Interpretation Comments RDW (test code = RDW) 13.4 11.5-14.5 [facility] CypressCdhtkulPBJNOIWITB2104-61-05 02:38:00 Test Item Value Reference Range Interpretation Comments Platelet (test code = Platelet) 145 133-450 [place] [id number] 02:38:00 Test Item Value Reference Range Interpretation Comments Salicylate Lvl (test no gt See_Comment [Autom ated message] The code = Salicylate Lvl) syste m which generated this result tra nsmitted reference range : <=30.0. The reference r annemarie was not used to int erpret this result as normal/abnormal . [place] [id number] 02:38:00 Test Item Value Reference Range Interpretation Comments Acetaminoph Lvl (test code (04/06/16 8:38 PM) 10-20 = Acetaminoph Lvl) [facility] [id number] 02:38:00 Test Item Value Reference Range Interpretation Comments Influ B (test code = Negative (04/06/16 8:38 Influ B) PM) [facility] [id number] 02:38:00 Test Item Value Reference Range Interpretation Comments Influ A (test code = Negative (04/06/16 8:38 Influ A) PM) [facility]ARD[facility] [id number] 02:38:00 Test Item Value Reference Range Interpretation Comments Total CK (test code = Total CK) 598 12-191 [facility] [id number] 02:38:00 Test Item Value Reference Range Interpretation Comments eGFR (test code = eGFR) 121 [facility] [id number] 02:38:00 Test Item Value Reference Range Interpretation Comments Calcium Lvl (test code = Calcium Lvl) 9.2 8.5-10.5 [facility] [id number] 02:38:00 Test Item Value Reference Range Interpretation Comments Total Protein (test code = Total 7.6 6.4-8.4 Protein) [facility] [id number] 02:38:00 Test Item Value Reference Range Interpretation Comments CO2 (test code = CO2) 22 24-32 [facility] [id number] 02:38:00 Test Item Value Reference Range Interpretation Comments AST (test code = AST) 43 See_Comment [Auto mated message] The system which ge nerated this result transmit abdelrahman reference range : <=37. The reference range was not used to interpr et this result as gurpreet l/abnormal. [facility] TexasZachary Prell [id number] 02:38:00 Test Item Value Reference Range Interpretation Comments Albumin Lvl (test code = Albumin Lvl) 4.4 3.5-5.0 [facility] [id number] 02:38:00 Test Item Value Reference Range Interpretation Comments ALT (test code = ALT) 22 See_Comment [Auto mated message] The system which ge nerated this result transmit abdelrahman reference range : <=65. The reference range was not used to interpr et this result as gurpreet l/abnormal. [facility] TexasZach[facility] Prell [id number] 02:38:00 Test Item Value Reference Range Interpretation Comments Chloride Lvl (test code = Chloride Lvl) 101 95-109 [facility]2016-12-08 02:38:00 Test Item Value Reference Range Interpretation Comments Creatinine Lvl (test code = Creatinine 0.81 0.50-1.40 Lvl) [facility]2016-12-08 02:38:00 Test Item Value Reference Range Interpretation Comments Sodium Lvl (test code = Sodium Lvl) 136 135-145 [facility]2016-12-08 02:38:00 Test Item Value Reference Range Interpretation Comments Potassium Lvl (test code = Potassium 4.4 3.5-5.1 Lvl) [facility]2016-12-08 02:38:00 Test Item Value Reference Range Interpretation Comments Bili Total (test code = Bili Total) 0.9 0.2-1.3 [facility]2016-12-08 02:38:00 Test Item Value Reference Range Interpretation Comments Alk Phos (test code = Alk Phos) 34 39-136 [facility]2016-12-08 02:38:00 Test Item Value Reference Range Interpretation Comments Glucose Lvl (test code = Glucose Lvl) 63 70-99 [facility]2016-12-08 02:38:00 Test Item Value Reference Range Interpretation Comments BUN (test code = BUN) 14 7-22 [facility]2016-12-08 02:38:00 Test Item Value Reference Range Interpretation Comments AGAP (test code = AGAP) 17.4 10.0-20.0 [facility]2016-12-08 02:38:00 Test Item Value Reference Range Interpretation Comments B/C Ratio (test code = B/C Ratio) 17 6-25 [facility]2016-12-08 02:38:00 Test Item Value Reference Range Interpretation Comments Globulin (test code = Globulin) 3.2 2.7-4.2 [facility]2016-12-08 02:38:00 Test Item Value Reference Range Interpretation Comments A/G Ratio (test code = A/G Ratio) 1.4 0.7-1.6 [facility] CypressCtvtkqkMULPTZAKCD4762-96-17 02:38:00 Test Item Value Reference Range Interpretation Comments Lymphocytes # (test code = Lymphocytes 1.7 1.0-5.5 #) [facility] CypressLtfqmmfPZDNGFIJKJ3817-40-04 02:38:00 Test Item Value Reference Range Interpretation Comments Eosinophils (test code = 1.0 See_Comment [A utomated message] The Eosinophils) system which ge nerated this result tra nsmitted reference range : <=4.0. The reference r annemarie was not used to int erpret this result as normal/abnormal . [facility] CypressFlxlzrwHJLDPOKPKU7608-30-84 02:38:00 Test Item Value Reference Range Interpretation Comments Basophils (test code = 0.4 See_Comment [Aut omated message] The Basophils) system which ge nerated this result tra nsmitted reference range : <=1.0. The reference r annemarie was not used to int erpret this result as normal/abnormal . [facility] CypressOgzoldrQTMIVZCQGN2176-39-29 02:38:00 Test Item Value Reference Range Interpretation Comments Segs-Bands # (test code = Segs-Bands #) 4.2 1.5-8.1 [facility] CypressBznmtnlAUICRCJQKG0370-61-63 02:38:00 Test Item Value Reference Range Interpretation Comments Monocytes (test code = Monocytes) 9.2 2.0-12.0 [facility] CypressHjxthdyPWWMHCTRPD0377-55-57 02:38:00 Test Item Value Reference Range Interpretation Comments Monocytes # (test code 0.6 See_Comment [Aut omated message] The = Monocytes #) system which generated this result tra nsmitted reference range : <=0.8. The reference r annemarie was not used to int erpret this result as normal/abnormal . [facility] CypressBaxvzilOGMBQQBNRY6065-95-57 02:38:00 Test Item Value Reference Range Interpretation Comments Eosinophils # (test code 0.1 See_Comment [A utomated message] The = Eosinophils #) system whic h generated this result tra nsmitted reference range : <=0.5. The reference r annemarie was not used to int erpret this result as normal/abnormal . [facility] CypressDrkchplSZAYBNHQJZ9817-11-27 02:38:00 Test Item Value Reference Range Interpretation Comments Lymphocytes (test code = Lymphocytes) 26.3 20.0-40.0 [facility] CypressUzoonmeKNOYPIIAXS1289-69-81 02:38:00 Test Item Value Reference Range Interpretation Comments Segs (test code = Segs) 63.1 45.0-75.0 [facility] CypressJetcfszWSNHCXDJJS0916-11-18 02:38:00 Test Item Value Reference Range Interpretation Comments WBC (test code = WBC) 6.6 3.7-10.4 [facility] CypressGrxnnolXCYZEXHNZC9598-18-23 02:38:00 Test Item Value Reference Range Interpretation Comments Hct (test code = Hct) 42.9 42.0-54.0 [facility]gyeqnnRYBAHLWTXF7420-45-28 02:38:00 Test Item Value Reference Range Interpretation Comments RBC (test code = RBC) 4.86 4.70-6.10 [facility] PointeXifsaxoPWRGQDHHKZ0366-64-08 02:38:00 Test Item Value Reference Range Interpretation Comments Hgb (test code = Hgb) 14.4 14.0-18.0 [facility] CypressUgekaqgBHQBJVYTPM3515-22-83 02:38:00 Test Item Value Reference Range Interpretation Comments MCV (test code = MCV) 88.3 80.0-94.0 [facility] CypressVvrsethXZMAJHNEIY4311-45-05 02:38:00 Test Item Value Reference Range Interpretation Comments MCH (test code = MCH) 29.6 pg 27.0-31.0 [facility]inteJlohssxTWEOCLENHH9312-18-53 02:38:00 Test Item Value Reference Range Interpretation Comments MCHC (test code = MCHC) 33.6 32.0-36.0 [facility] CypressUxilodfIYGNKVOXPJ1779-90-81 02:38:00 Test Item Value Reference Range Interpretation Comments MPV (test code = MPV) 9.4 7.4-10.4 [facility] CypressVmvnstrWPIXCSJJPC8747-55-86 02:38:00 Test Item Value Reference Range Interpretation Comments RDW (test code = RDW) 13.4 11.5-14.5 [facility] CypressOhzummcLZYIKYUWVC0611-19-99 02:38:00 Test Item Value Reference Range Interpretation Comments Platelet (test code = Platelet) 145 133-450 [facility]wayBoxfyxpDIBQKIQRUR8822-53-51 02:38:00 Test Item Value Reference Range Interpretation Comments Salicylate Lvl (test no gt See_Comment [Autom ated message] The code = Salicylate Lvl) syste m which generated this result tra nsmitted reference range : <=30.0. The reference r annemarie was not used to int erpret this result as normal/abnormal . [facility] ParkwayWaevmwtPISNUBJORJ5059-07-13 02:38:00 Test Item Value Reference Range Interpretation Comments Acetaminoph Lvl (test code (04/06/16 8:38 PM) 10-20 = Acetaminoph Lvl) [facility] - [id number] 02:38:00 Test Item Value Reference Range Interpretation Comments Influ B (test code = Negative (04/06/16 8:38 Influ B) PM) [facility] [id number] 02:38:00 Test Item Value Reference Range Interpretation Comments Influ A (test code = Negative (04/06/16 8:38 Influ A) PM) [facility] [id number] 02:38:00 Test Item Value Reference Range Interpretation Comments Total CK (test code = Total CK) 598 12-191 [facility]CHE[facility] [id number] 02:38:00 Test Item Value Reference Range Interpretation Comments eGFR (test code = eGFR) 121 [facility] [id number] 02:38:00 Test Item Value Reference Range Interpretation Comments Calcium Lvl (test code = Calcium Lvl) 9.2 8.5-10.5 [facility] [id number] 02:38:00 Test Item Value Reference Range Interpretation Comments Total Protein (test code = Total 7.6 6.4-8.4 Protein) [facility] [id number] 02:38:00 Test Item Value Reference Range Interpretation Comments CO2 (test code = CO2) 22 24-32 [facility] [id number] 02:38:00 Test Item Value Reference Range Interpretation Comments AST (test code = AST) 43 See_Comment [Auto mated message] The system which ge nerated this result transmit abdelrahman reference range : <=37. The reference range was not used to interpr et this result as gurpreet l/abnormal. [facility] [id number] 02:38:00 Test Item Value Reference Range Interpretation Comments Albumin Lvl (test code = Albumin Lvl) 4.4 3.5-5.0 [facility] [id number] 02:38:00 Test Item Value Reference Range Interpretation Comments ALT (test code = ALT) 22 See_Comment [Auto mated message] The system which ge nerated this result transmit abdelrahman reference range : <=65. The reference range was not used to interpr et this result as gurpreet l/abnormal. [facility] [id number] 02:38:00 Test Item Value Reference Range Interpretation Comments Chloride Lvl (test code = Chloride Lvl) 101 95-109 [facility]2016-12-08 02:38:00 Test Item Value Reference Range Interpretation Comments Creatinine Lvl (test code = Creatinine 0.81 0.50-1.40 Lvl) [facility]2016-12-08 02:38:00 Test Item Value Reference Range Interpretation Comments Sodium Lvl (test code = Sodium Lvl) 136 135-145 [facility]2016-12-08 02:38:00 Test Item Value Reference Range Interpretation Comments Potassium Lvl (test code = Potassium 4.4 3.5-5.1 Lvl) [facility]2016-12-08 02:38:00 Test Item Value Reference Range Interpretation Comments Bili Total (test code = Bili Total) 0.9 0.2-1.3 [facility]2016-12-08 02:38:00 Test Item Value Reference Range Interpretation Comments Alk Phos (test code = Alk Phos) 34 39-136 [facility]2016-12-08 02:38:00 Test Item Value Reference Range Interpretation Comments Glucose Lvl (test code = Glucose Lvl) 63 70-99 [facility]2016-12-08 02:38:00 Test Item Value Reference Range Interpretation Comments BUN (test code = BUN) 14 7-22 [facility]2016-12-08 02:38:00 Test Item Value Reference Range Interpretation Comments AGAP (test code = AGAP) 17.4 10.0-20.0 [facility]2016-12-08 02:38:00 Test Item Value Reference Range Interpretation Comments B/C Ratio (test code = B/C Ratio) 17 6-25 [facility]2016-12-08 02:38:00 Test Item Value Reference Range Interpretation Comments Globulin (test code = Globulin) 3.2 2.7-4.2 [facility]2016-12-08 02:38:00 Test Item Value Reference Range Interpretation Comments A/G Ratio (test code = A/G Ratio) 1.4 0.7-1.6 [facility] CypressWvnfpqlMMJKIBIKHL5137-45-62 02:38:00 Test Item Value Reference Range Interpretation Comments Lymphocytes # (test code = Lymphocytes 1.7 1.0-5.5 #) [facility] CypressCiwlpeyOBPKOVQYTF6279-66-53 02:38:00 Test Item Value Reference Range Interpretation Comments Eosinophils (test code = 1.0 See_Comment [A utomated message] The Eosinophils) system which ge nerated this result tra nsmitted reference range : <=4.0. The reference r annemarie was not used to int erpret this result as normal/abnormal . [facility] CypressGoesekkHVEXEFENLM3461-09-30 02:38:00 Test Item Value Reference Range Interpretation Comments Basophils (test code = 0.4 See_Comment [Aut omated message] The Basophils) system which ge nerated this result tra nsmitted reference range : <=1.0. The reference r annemarie was not used to int erpret this result as normal/abnormal . [facility] CypressVlmsamkEWPXTHFUFE9716-84-42 02:38:00 Test Item Value Reference Range Interpretation Comments Segs-Bands # (test code = Segs-Bands #) 4.2 1.5-8.1 [facility] CypressChrnrqtZQBVYTUYMS1117-35-87 02:38:00 Test Item Value Reference Range Interpretation Comments Monocytes (test code = Monocytes) 9.2 2.0-12.0 [facility] CypressLyzlzfqWDZKHFISJX9808-92-41 02:38:00 Test Item Value Reference Range Interpretation Comments Monocytes # (test code 0.6 See_Comment [Aut omated message] The = Monocytes #) system which generated this result tra nsmitted reference range : <=0.8. The reference r annemarie was not used to int erpret this result as normal/abnormal . [facility] CypressPjtsukaRJANRUXKCO1003-75-51 02:38:00 Test Item Value Reference Range Interpretation Comments Eosinophils # (test code 0.1 See_Comment [A utomated message] The = Eosinophils #) system whic h generated this result tra nsmitted reference range : <=0.5. The reference r annemarie was not used to int erpret this result as normal/abnormal . [facility] CypressIkvpakzMYSVJJCXLS5817-81-06 02:38:00 Test Item Value Reference Range Interpretation Comments Lymphocytes (test code = Lymphocytes) 26.3 20.0-40.0 [facility] CypressGqxxrvlZIHBTFJPHS4785-62-27 02:38:00 Test Item Value Reference Range Interpretation Comments Segs (test code = Segs) 63.1 45.0-75.0 [facility] CypressFcaieyqYTGLETQRST0899-05-79 02:38:00 Test Item Value Reference Range Interpretation Comments WBC (test code = WBC) 6.6 3.7-10.4 [facility] CypressQlvfmcvNIIIKWEDZB0326-48-02 02:38:00 Test Item Value Reference Range Interpretation Comments Hct (test code = Hct) 42.9 42.0-54.0 [facility] CypressDoqknanJSNVEMUWZG2450-37-57 02:38:00 Test Item Value Reference Range Interpretation Comments RBC (test code = RBC) 4.86 4.70-6.10 [facility] CypressMjpatoeDRLPVZDWVL9764-04-29 02:38:00 Test Item Value Reference Range Interpretation Comments Hgb (test code = Hgb) 14.4 14.0-18.0 [facility] CypressJemaajzSIYEQIERNF3954-85-11 02:38:00 Test Item Value Reference Range Interpretation Comments MCV (test code = MCV) 88.3 80.0-94.0 [facility] CypressIhafghcCBVMCNQCJI1665-41-60 02:38:00 Test Item Value Reference Range Interpretation Comments MCH (test code = MCH) 29.6 pg 27.0-31.0 [facility] CypressPrmrcqgTFIESVRIXK1194-58-73 02:38:00 Test Item Value Reference Range Interpretation Comments MCHC (test code = MCHC) 33.6 32.0-36.0 [facility] CypressSyqvxlxRHXGTAVEQT1476-68-06 02:38:00 Test Item Value Reference Range Interpretation Comments MPV (test code = MPV) 9.4 7.4-10.4 [facility] CypressJfchfqwWKYANAYURA9990-13-52 02:38:00 Test Item Value Reference Range Interpretation Comments RDW (test code = RDW) 13.4 11.5-14.5 [facility] CypressZrizwqqXUVKTTHUYV3164-35-56 02:38:00 Test Item Value Reference Range Interpretation Comments Platelet (test code = Platelet) 145 133-450 [place] [id number] 02:38:00 Test Item Value Reference Range Interpretation Comments Salicylate Lvl (test no gt See_Comment [Autom ated message] The code = Salicylate Lvl) syste m which generated this result tra nsmitted reference range : <=30.0. The reference r annemarie was not used to int erpret this result as normal/abnormal . [place] [id number] 02:38:00 Test Item Value Reference Range Interpretation Comments Acetaminoph Lvl (test code (04/06/16 8:38 PM) 10-20 = Acetaminoph Lvl) [facility] [id number] 02:38:00 Test Item Value Reference Range Interpretation Comments Influ B (test code = Negative (04/06/16 8:38 Influ B) PM) [facility] [id number] 02:38:00 Test Item Value Reference Range Interpretation Comments Influ A (test code = Negative (04/06/16 8:38 Influ A) PM) [facility] [id number] 02:38:00 Test Item Value Reference Range Interpretation Comments Total CK (test code = Total CK) 598 12-191 [facility] HospitalSynapCellCHEM [id number] 02:38:00 Test Item Value Reference Range Interpretation Comments eGFR (test code = eGFR) 121 [facility] [id number] 02:38:00 Test Item Value Reference Range Interpretation Comments Calcium Lvl (test code = Calcium Lvl) 9.2 8.5-10.5 [facility] HospitalSynapCellCHEM [id number] 02:38:00 Test Item Value Reference Range Interpretation Comments Total Protein (test code = Total 7.6 6.4-8.4 Protein) [facility] HospitalSynapCellCHEM [id number] 02:38:00 Test Item Value Reference Range Interpretation Comments CO2 (test code = CO2) 22 24-32 [facility] HospitalSynapCellCHEM [id number] 02:38:00 Test Item Value Reference Range Interpretation Comments AST (test code = AST) 43 See_Comment [Auto mated message] The system which ge nerated this result transmit abdelrahman reference range : <=37. The reference range was not used to interpr et this result as gurpreet l/abnormal. [facility] [id number] 02:38:00 Test Item Value Reference Range Interpretation Comments Albumin Lvl (test code = Albumin Lvl) 4.4 3.5-5.0 [facility] [id number] 02:38:00 Test Item Value Reference Range Interpretation Comments ALT (test code = ALT) 22 See_Comment [Auto mated message] The system which ge nerated this result transmit abdelrahman reference range : <=65. The reference range was not used to interpr et this result as gurpreet l/abnormal. [facility]2016-12-08 02:38:00 Test Item Value Reference Range Interpretation Comments Chloride Lvl (test code = Chloride Lvl) 101 95-109 [facility]2016-12-08 02:38:00 Test Item Value Reference Range Interpretation Comments Creatinine Lvl (test code = Creatinine 0.81 0.50-1.40 Lvl) [facility]2016-12-08 02:38:00 Test Item Value Reference Range Interpretation Comments Sodium Lvl (test code = Sodium Lvl) 136 135-145 [facility]2016-12-08 02:38:00 Test Item Value Reference Range Interpretation Comments Potassium Lvl (test code = Potassium 4.4 3.5-5.1 Lvl) [facility]2016-12-08 02:38:00 Test Item Value Reference Range Interpretation Comments Bili Total (test code = Bili Total) 0.9 0.2-1.3 [facility]2016-12-08 02:38:00 Test Item Value Reference Range Interpretation Comments Alk Phos (test code = Alk Phos) 34 39-136 [facility]2016-12-08 02:38:00 Test Item Value Reference Range Interpretation Comments Glucose Lvl (test code = Glucose Lvl) 63 70-99 [facility]2016-12-08 02:38:00 Test Item Value Reference Range Interpretation Comments BUN (test code = BUN) 14 7-22 [facility]2016-12-08 02:38:00 Test Item Value Reference Range Interpretation Comments AGAP (test code = AGAP) 17.4 10.0-20.0 [facility]2016-12-08 02:38:00 Test Item Value Reference Range Interpretation Comments B/C Ratio (test code = B/C Ratio) 17 6-25 [facility]2016-12-08 02:38:00 Test Item Value Reference Range Interpretation Comments Globulin (test code = Globulin) 3.2 2.7-4.2 [facility]2016-12-08 02:38:00 Test Item Value Reference Range Interpretation Comments A/G Ratio (test code = A/G Ratio) 1.4 0.7-1.6 [place] [id number] 02:38:00 Test Item Value Reference Range Interpretation Comments Lymphocytes # (test code = Lymphocytes 1.7 1.0-5.5 #) [facility] Cypre[id number] 02:38:00 Test Item Value Reference Range Interpretation Comments Eosinophils (test code = 1.0 See_Comment [A utomated message] The Eosinophils) system which ge nerated this result tra nsmitted reference range : <=4.0. The reference r annemarie was not used to int erpret this result as normal/abnormal . [facility]ressGulmviyUFWFLFUZPA3406-30-27 02:38:00 Test Item Value Reference Range Interpretation Comments Basophils (test code = 0.4 See_Comment [Aut omated message] The Basophils) system which ge nerated this result tra nsmitted reference range : <=1.0. The reference r annemarie was not used to int erpret this result as normal/abnormal . [facility] CypressCfysldqESUBIABZLR7001-05-51 02:38:00 Test Item Value Reference Range Interpretation Comments Segs-Bands # (test code = Segs-Bands #) 4.2 1.5-8.1 [facility] CypressWvblzcoBOXWIRVBUI4123-69-41 02:38:00 Test Item Value Reference Range Interpretation Comments Monocytes (test code = Monocytes) 9.2 2.0-12.0 [facility] CypressLyhxafrIPXAEHHRCL7294-52-64 02:38:00 Test Item Value Reference Range Interpretation Comments Monocytes # (test code 0.6 See_Comment [Aut omated message] The = Monocytes #) system which generated this result tra nsmitted reference range : <=0.8. The reference r annemarie was not used to int erpret this result as normal/abnormal . [facility] CypressTvgnpgdKCEAFAWPKN1632-49-52 02:38:00 Test Item Value Reference Range Interpretation Comments Eosinophils # (test code 0.1 See_Comment [A utomated message] The = Eosinophils #) system whic h generated this result tra nsmitted reference range : <=0.5. The reference r annemarie was not used to int erpret this result as normal/abnormal . [facility] CypressKnavtsdLHFAEONZSE3397-96-52 02:38:00 Test Item Value Reference Range Interpretation Comments Lymphocytes (test code = Lymphocytes) 26.3 20.0-40.0 [facility] CypressSowvciwBMZUHVNNET4053-83-61 02:38:00 Test Item Value Reference Range Interpretation Comments Segs (test code = Segs) 63.1 45.0-75.0 [facility] CypressOgidqzpBDTMDAFFAG9610-34-75 02:38:00 Test Item Value Reference Range Interpretation Comments WBC (test code = WBC) 6.6 3.7-10.4 [facility] CypressLqnedarJDTEFSORXX0524-96-24 02:38:00 Test Item Value Reference Range Interpretation Comments Hct (test code = Hct) 42.9 42.0-54.0 [facility] CypressHpsgdljJKXCPGKPAK7112-12-12 02:38:00 Test Item Value Reference Range Interpretation Comments RBC (test code = RBC) 4.86 4.70-6.10 [facility] CypressDnodoqcRUZNPNGGZK1565-59-44 02:38:00 Test Item Value Reference Range Interpretation Comments Hgb (test code = Hgb) 14.4 14.0-18.0 [facility] CypressEyttqsyOVXETHHKHE6234-30-17 02:38:00 Test Item Value Reference Range Interpretation Comments MCV (test code = MCV) 88.3 80.0-94.0 [facility] CypressAblughfXBHZDENMPB2250-10-65 02:38:00 Test Item Value Reference Range Interpretation Comments MCH (test code = MCH) 29.6 pg 27.0-31.0 [facility] CypressMxcvkixXBLYIKAXVN4316-04-34 02:38:00 Test Item Value Reference Range Interpretation Comments MCHC (test code = MCHC) 33.6 32.0-36.0 [facility] CypressXcaapqzEQLAEHLOZD6695-55-63 02:38:00 Test Item Value Reference Range Interpretation Comments MPV (test code = MPV) 9.4 7.4-10.4 [facility] CypressLvywvitCIFGLHFHUV1391-82-80 02:38:00 Test Item Value Reference Range Interpretation Comments RDW (test code = RDW) 13.4 11.5-14.5 [facility] CypressAlsjrwoCIZSXVSBPG8427-63-89 02:38:00 Test Item Value Reference Range Interpretation Comments Platelet (test code = Platelet) 145 133-450 [facility]NcrfdhfQYWVDTAFVZ4859-65-75 02:38:00 Test Item Value Reference Range Interpretation Comments Salicylate Lvl (test no gt See_Comment [Autom ated message] The code = Salicylate Lvl) systfrancisca m which generated this result tra nsmitted reference range : <=30.0. The reference r annemarie was not used to int erpret this result as normal/abnormal . [facility]dj[facility]gyAMSNJLPVMK9444-93-[facility] 02:38:00 Test Item Value Reference Range Interpretation Comments Acetaminoph Lvl (test code (04/06/16 8:38 PM) 10-20 = Acetaminoph Lvl) [facility] [id number] 02:38:00 Test Item Value Reference Range Interpretation Comments Influ B (test code = Negative (04/06/16 8:38 Influ B) PM) [facility] - [id number] 02:38:00 Test Item Value Reference Range Interpretation Comments Influ A (test code = Negative (04/06/16 8:38 Influ A) PM) [facility] [id number] 02:38:00 Test Item Value Reference Range Interpretation Comments Total CK (test code = Total CK) 598 12-191 [facility] [id number] 02:38:00 Test Item Value Reference Range Interpretation Comments eGFR (test code = eGFR) 121 [facility] [id number] 02:38:00 Test Item Value Reference Range Interpretation Comments Calcium Lvl (test code = Calcium Lvl) 9.2 8.5-10.5 [facility] [id number] 02:38:00 Test Item Value Reference Range Interpretation Comments Total Protein (test code = Total 7.6 6.4-8.4 Protein) [facility] [id number] 02:38:00 Test Item Value Reference Range Interpretation Comments CO2 (test code = CO2) 22 24-32 [facility] [id number] 02:38:00 Test Item Value Reference Range Interpretation Comments AST (test code = AST) 43 See_Comment [Auto mated message] The system which ge nerated this result transmit abdelrhaman reference range : <=37. The reference range was not used to interpr et this result as gurpreet l/abnormal. [facility] [id number] 02:38:00 Test Item Value Reference Range Interpretation Comments Albumin Lvl (test code = Albumin Lvl) 4.4 3.5-5.0 [facility] [id number] 02:38:00 Test Item Value Reference Range Interpretation Comments ALT (test code = ALT) 22 See_Comment [Auto mated message] The system which ge nerated this result transmit abdelrahman reference range : <=65. The reference range was not used to interpr et this result as gurpreet l/abnormal. [facility]2016-12-08 02:38:00 Test Item Value Reference Range Interpretation Comments Chloride Lvl (test code = Chloride Lvl) 101 95-109 [facility]2016-12-08 02:38:00 Test Item Value Reference Range Interpretation Comments Creatinine Lvl (test code = Creatinine 0.81 0.50-1.40 Lvl) [facility]2016-12-08 02:38:00 Test Item Value Reference Range Interpretation Comments Sodium Lvl (test code = Sodium Lvl) 136 135-145 [facility]2016-12-08 02:38:00 Test Item Value Reference Range Interpretation Comments Potassium Lvl (test code = Potassium 4.4 3.5-5.1 Lvl) [facility]2016-12-08 02:38:00 Test Item Value Reference Range Interpretation Comments Bili Total (test code = Bili Total) 0.9 0.2-1.3 [facility]2016-12-08 02:38:00 Test Item Value Reference Range Interpretation Comments Alk Phos (test code = Alk Phos) 34 39-136 [facility]2016-12-08 02:38:00 Test Item Value Reference Range Interpretation Comments Glucose Lvl (test code = Glucose Lvl) 63 70-99 [facility]2016-12-08 02:38:00 Test Item Value Reference Range Interpretation Comments BUN (test code = BUN) 14 7-22 [facility]2016-12-08 02:38:00 Test Item Value Reference Range Interpretation Comments AGAP (test code = AGAP) 17.4 10.0-20.0 [facility]2016-12-08 02:38:00 Test Item Value Reference Range Interpretation Comments B/C Ratio (test code = B/C Ratio) 17 6-25 [facility]2016-12-08 02:38:00 Test Item Value Reference Range Interpretation Comments Globulin (test code = Globulin) 3.2 2.7-4.2 [facility]2016-12-08 02:38:00 Test Item Value Reference Range Interpretation Comments A/G Ratio (test code = A/G Ratio) 1.4 0.7-1.6 [facility] CypressMpgnwzyTZXPOFSYIX8755-89-49 02:38:00 Test Item Value Reference Range Interpretation Comments Lymphocytes # (test code = Lymphocytes 1.7 1.0-5.5 #) [facility] CypressCetrzljBHXBEEMXIC6392-33-35 02:38:00 Test Item Value Reference Range Interpretation Comments Eosinophils (test code = 1.0 See_Comment [A utomated message] The Eosinophils) system which ge nerated this result tra nsmitted reference range : <=4.0. The reference r annemarie was not used to int erpret this result as normal/abnormal . [facility] CypressMyqmuuaJWKLYNLUFB1337-28-31 02:38:00 Test Item Value Reference Range Interpretation Comments Basophils (test code = 0.4 See_Comment [Aut omated message] The Basophils) system which ge nerated this result tra nsmitted reference range : <=1.0. The reference r annemarie was not used to int erpret this result as normal/abnormal . [facility] CypressNrpgbnqPQJKTUYDSC5185-08-04 02:38:00 Test Item Value Reference Range Interpretation Comments Segs-Bands # (test code = Segs-Bands #) 4.2 1.5-8.1 [facility] CypressDncmbylZXISHIJPHG9730-71-68 02:38:00 Test Item Value Reference Range Interpretation Comments Monocytes (test code = Monocytes) 9.2 2.0-12.0 [facility] CypressCgsqyycISEXXURMHE1808-13-58 02:38:00 Test Item Value Reference Range Interpretation Comments Monocytes # (test code 0.6 See_Comment [Aut omated message] The = Monocytes #) system which generated this result tra nsmitted reference range : <=0.8. The reference r annemarie was not used to int erpret this result as normal/abnormal . [facility] CypressJrzzwfvHKVSJYATZK0094-46-60 02:38:00 Test Item Value Reference Range Interpretation Comments Eosinophils # (test code 0.1 See_Comment [A utomated message] The = Eosinophils #) system ic h generated this result tra nsmitted reference range : <=0.5. The reference r annemarie was not used to int erpret this result as normal/abnormal . [facility] CypressQgcqkbwPXXJMDDQZQ7029-51-88 02:38:00 Test Item Value Reference Range Interpretation Comments Lymphocytes (test code = Lymphocytes) 26.3 20.0-40.0 [facility] CypressXppliidSGZVUMWCJG3196-89-51 02:38:00 Test Item Value Reference Range Interpretation Comments Segs (test code = Segs) 63.1 45.0-75.0 [facility] CypressZhnzyujJZTOABJHUB6193-59-46 02:38:00 Test Item Value Reference Range Interpretation Comments WBC (test code = WBC) 6.6 3.7-10.4 [facility] CypressHzjsjdvGOBGUHMQXM0274-21-30 02:38:00 Test Item Value Reference Range Interpretation Comments Hct (test code = Hct) 42.9 42.0-54.0 [facility] CypressQtjvxasKOSPVPCPCW3938-83-97 02:38:00 Test Item Value Reference Range Interpretation Comments RBC (test code = RBC) 4.86 4.70-6.10 [facility] CypressUcesjrxWDIAVWYWAH5910-30-14 02:38:00 Test Item Value Reference Range Interpretation Comments Hgb (test code = Hgb) 14.4 14.0-18.0 [facility] CypressTgxqeiiFDCVDEQTKT9554-68-97 02:38:00 Test Item Value Reference Range Interpretation Comments MCV (test code = MCV) 88.3 80.0-94.0 [facility] CypressMscopxuROGXXUCPFP1539-47-49 02:38:00 Test Item Value Reference Range Interpretation Comments MCH (test code = MCH) 29.6 pg 27.0-31.0 [facility] CypressUzsejwoBZZWZQXCOR5751-62-89 02:38:00 Test Item Value Reference Range Interpretation Comments MCHC (test code = MCHC) 33.6 32.0-36.0 [facility] CypressXwzuvhxEHVQFJDRCO8964-46-13 02:38:00 Test Item Value Reference Range Interpretation Comments MPV (test code = MPV) 9.4 7.4-10.4 [facility] CypressZpkevedGLUIXCXIQF2666-70-76 02:38:00 Test Item Value Reference Range Interpretation Comments RDW (test code = RDW) 13.4 11.5-14.5 [facility] CypressDptpigwQPBGWDDLFO4462-09-81 02:38:00 Test Item Value Reference Range Interpretation Comments Platelet (test code = Platelet) 145 133-450 [facility] TexasNjovtbcNXXDWBFBSY3700-30-59 02:38:00 Test Item Value Reference Range Interpretation Comments Salicylate Lvl (test no gt See_Comment [Autom ated message] The code = Salicylate Lvl) syste m which generated this result tra nsmitted reference range : <=30.0. The reference r annemarie was not used to int erpret this result as normal/abnormal . [facility] HospitalIyybhaqUAXGBACQNA2086-59-46 02:38:00 Test Item Value Reference Range Interpretation Comments Acetaminoph Lvl (test code (04/06/16 8:38 PM) 10-20 = Acetaminoph Lvl) [facility] [id number] 02:38:00 Test Item Value Reference Range Interpretation Comments Influ B (test code = Negative (04/06/16 8:38 Influ B) PM) [facility] [id number] 02:38:00 Test Item Value Reference Range Interpretation Comments Influ A (test code = Negative (04/06/16 8:38 Influ A) PM) [facility] KOKCCJZ5079-14-66 02:38:00 Test Item Value Reference Range Interpretation Comments Total CK (test code = Total CK) 598 12-191 [facility] [employer] TechnologiesCHEM [id number] 02:38:00 Test Item Value Reference Range Interpretation Comments eGFR (test code = eGFR) 121 [facility] [id number] 02:38:00 Test Item Value Reference Range Interpretation Comments Calcium Lvl (test code = Calcium Lvl) 9.2 8.5-10.5 [facility] TechnologiesCHEM [id number] 02:38:00 Test Item Value Reference Range Interpretation Comments Total Protein (test code = Total 7.6 6.4-8.4 Protein) [facility] [id number] 02:38:00 Test Item Value Reference Range Interpretation Comments CO2 (test code = CO2) 22 24-32 [facility] [id number] 02:38:00 Test Item Value Reference Range Interpretation Comments AST (test code = AST) 43 See_Comment [Auto mated message] The system which ge nerated this result transmit abdelrahman reference range : <=37. The reference range was not used to interpr et this result as gurpreet l/abnormal. [facility] [id number] 02:38:00 Test Item Value Reference Range Interpretation Comments Albumin Lvl (test code = Albumin Lvl) 4.4 3.5-5.0 [facility]2016-12-08 02:38:00 Test Item Value Reference Range Interpretation Comments ALT (test code = ALT) 22 See_Comment [Auto mated message] The system which ge nerated this result transmit abdelrahman reference range : <=65. The reference range was not used to interpr et this result as gurpreet l/abnormal. [facility]2016-12-08 02:38:00 Test Item Value Reference Range Interpretation Comments Chloride Lvl (test code = Chloride Lvl) 101 95-109 [facility]2016-12-08 02:38:00 Test Item Value Reference Range Interpretation Comments Creatinine Lvl (test code = Creatinine 0.81 0.50-1.40 Lvl) [facility]2016-12-08 02:38:00 Test Item Value Reference Range Interpretation Comments Sodium Lvl (test code = Sodium Lvl) 136 135-145 [facility]2016-12-08 02:38:00 Test Item Value Reference Range Interpretation Comments Potassium Lvl (test code = Potassium 4.4 3.5-5.1 Lvl) [facility]2016-12-08 02:38:00 Test Item Value Reference Range Interpretation Comments Bili Total (test code = Bili Total) 0.9 0.2-1.3 [facility]2016-12-08 02:38:00 Test Item Value Reference Range Interpretation Comments Alk Phos (test code = Alk Phos) 34 39-136 [facility]2016-12-08 02:38:00 Test Item Value Reference Range Interpretation Comments Glucose Lvl (test code = Glucose Lvl) 63 70-99 [facility]2016-12-08 02:38:00 Test Item Value Reference Range Interpretation Comments BUN (test code = BUN) 14 7-22 [facility]2016-12-08 02:38:00 Test Item Value Reference Range Interpretation Comments AGAP (test code = AGAP) 17.4 10.0-20.0 [facility]2016-12-08 02:38:00 Test Item Value Reference Range Interpretation Comments B/C Ratio (test code = B/C Ratio) 17 6-25 [facility]2016-12-08 02:38:00 Test Item Value Reference Range Interpretation Comments Globulin (test code = Globulin) 3.2 2.7-4.2 [facility]2016-12-08 02:38:00 Test Item Value Reference Range Interpretation Comments A/G Ratio (test code = A/G Ratio) 1.4 0.7-1.6 [facility] CypressVonbxciMXGYUDNXCO3192-62-49 02:38:00 Test Item Value Reference Range Interpretation Comments Lymphocytes # (test code = Lymphocytes 1.7 1.0-5.5 #) [facility] CypressDwuvyqgKUQKLWMUAY8563-83-47 02:38:00 Test Item Value Reference Range Interpretation Comments Eosinophils (test code = 1.0 See_Comment [A utomated message] The Eosinophils) system which ge nerated this result tra nsmitted reference range : <=4.0. The reference r annemarie was not used to int erpret this result as normal/abnormal . [facility] CypressDkrsjrdZOPTTFKYCC2273-12-47 02:38:00 Test Item Value Reference Range Interpretation Comments Basophils (test code = 0.4 See_Comment [Aut omated message] The Basophils) system which ge nerated this result tra nsmitted reference range : <=1.0. The reference r annemarie was not used to int erpret this result as normal/abnormal . [facility] CypressOhjkfucKSPXSPVITB5646-39-63 02:38:00 Test Item Value Reference Range Interpretation Comments Segs-Bands # (test code = Segs-Bands #) 4.2 1.5-8.1 [facility] CypressYyqaxpdHJQPRQOMLP9116-26-68 02:38:00 Test Item Value Reference Range Interpretation Comments Monocytes (test code = Monocytes) 9.2 2.0-12.0 [facility] CypressQrdgkgyMBQCAWJAHD1452-60-57 02:38:00 Test Item Value Reference Range Interpretation Comments Monocytes # (test code 0.6 See_Comment [Aut omated message] The = Monocytes #) system which generated this result tra nsmitted reference range : <=0.8. The reference r annemarie was not used to int erpret this result as normal/abnormal . [facility] CypressPdeaohzNHFDNLAKZD9501-89-84 02:38:00 Test Item Value Reference Range Interpretation Comments Eosinophils # (test code 0.1 See_Comment [A utomated message] The = Eosinophils #) system whic h generated this result tra nsmitted reference range : <=0.5. The reference r annemarie was not used to int erpret this result as normal/abnormal . [facility] CypressHxblgvhEMFGKHTJMY0566-51-13 02:38:00 Test Item Value Reference Range Interpretation Comments Lymphocytes (test code = Lymphocytes) 26.3 20.0-40.0 [facility] CypressGfgiffqKREUPEKMYZ6354-68-32 02:38:00 Test Item Value Reference Range Interpretation Comments Segs (test code = Segs) 63.1 45.0-75.0 [facility] CypressYjhgohcBCYUFCCKCW4664-82-93 02:38:00 Test Item Value Reference Range Interpretation Comments WBC (test code = WBC) 6.6 3.7-10.4 [facility] CypressIbahwrmFDPONNYAZF9171-82-40 02:38:00 Test Item Value Reference Range Interpretation Comments Hct (test code = Hct) 42.9 42.0-54.0 [facility] CypressOurmcpqOHWPMENRWS9049-83-64 02:38:00 Test Item Value Reference Range Interpretation Comments RBC (test code = RBC) 4.86 4.70-6.10 [facility] CypressWqxapueFACWRGBERD4772-86-16 02:38:00 Test Item Value Reference Range Interpretation Comments Hgb (test code = Hgb) 14.4 14.0-18.0 [facility] CypressEonhwjkAPILGEVLHU2774-23-43 02:38:00 Test Item Value Reference Range Interpretation Comments MCV (test code = MCV) 88.3 80.0-94.0 [facility] CypressNxtnkgaPSNNVEHQHI0824-79-68 02:38:00 Test Item Value Reference Range Interpretation Comments MCH (test code = MCH) 29.6 pg 27.0-31.0 [facility] CypressYhjluxoHEZNWAWTUY2047-84-68 02:38:00 Test Item Value Reference Range Interpretation Comments MCHC (test code = MCHC) 33.6 32.0-36.0 [facility] CypressHdrspeyTADMBGGAAA5803-78-40 02:38:00 Test Item Value Reference Range Interpretation Comments MPV (test code = MPV) 9.4 7.4-10.4 [facility] CypressQvqofpeERTPIBVYGE6734-40-42 02:38:00 Test Item Value Reference Range Interpretation Comments RDW (test code = RDW) 13.4 11.5-14.5 [facility]mhxiewDJJXCJYXUO6014-76-28 02:38:00 Test Item Value Reference Range Interpretation Comments Platelet (test code = Platelet) 145 133-450 [place] [id number] 02:38:00 Test Item Value Reference Range Interpretation Comments Salicylate Lvl (test no gt See_Comment [Autom ated message] The code = Salicylate Lvl) syste m which generated this result tra nsmitted reference range : <=30.0. The reference r annemarie was not used to int erpret this result as normal/abnormal . [place] [id number] 02:38:00 Test Item Value Reference Range Interpretation Comments Acetaminoph Lvl (test code (04/06/16 8:38 PM) 10-20 = Acetaminoph Lvl) [facility] - [id number] 02:38:00 Test Item Value Reference Range Interpretation Comments Influ B (test code = Negative (04/06/16 8:38 Influ B) PM) [facility] - [id number] 02:38:00 Test Item Value Reference Range Interpretation Comments Influ A (test code = Negative (04/06/16 8:38 Influ A) PM) [facility]hitqzbLDLTEVWKX7766-44-72 06:42:00 Test Item Value Reference Range Interpretation Comments B/C Ratio (test code = B/C Ratio) 8 6-25 [facility] HospitalGwwrwmbENPZSXVXW0926-18-28 06:42:00 Test Item Value Reference Range Interpretation Comments Globulin (test code = Globulin) 2.5 2.0-4.0 [facility] HospitalHpggdjrUFWSBDQOJ8836-45-01 06:42:00 Test Item Value Reference Range Interpretation Comments AGAP (test code = AGAP) 16.9 10.0-20.0 [facility] HospitalYjlqbrbRYEWTEORJ5615-11-25 06:42:00 Test Item Value Reference Range Interpretation Comments A/G Ratio (test code = A/G Ratio) 1.6 0.7-1.6 [facility] HospitalXiicpoqAAIBMIJHH7764-94-20 06:42:00 Test Item Value Reference Range Interpretation Comments eGFR (test code = eGFR) 105 [facility] HospitalAanwzpiIFOJSKAHJ6867-61-04 06:42:00 Test Item Value Reference Range Interpretation Comments Glucose Lvl (test code = Glucose Lvl) 109 70-99 H [facility] HospitalZlkdojfAKWQYKCDO2987-30-67 06:42:00 Test Item Value Reference Range Interpretation Comments ALT (test code = ALT) 26 See_Comment N [Auto mated message] The system which ge nerated this result transmit abdelrahman reference range : <=65. The reference range was not used to interpr et this result as gurpreet l/abnormal. [facility] HospitalNiugnotAOSMBORJU4970-20-56 06:42:00 Test Item Value Reference Range Interpretation Comments Albumin Lvl (test code = Albumin Lvl) 3.9 3.5-5.0 [facility] HospitalKtbfcsdHSGXDUYGG4531-71-70 06:42:00 Test Item Value Reference Range Interpretation Comments Alk Phos (test code = Alk Phos) 47 39-136 N [facility] HospitalZyzecrzVUIZNPVCZ2168-33-24 06:42:00 Test Item Value Reference Range Interpretation Comments Total Protein (test code = Total 6.4 6.4-8.4 N Protein) [facility] HospitalTnplwnnAJPTIWHEV6685-96-80 06:42:00 Test Item Value Reference Range Interpretation Comments AST (test code = AST) 31 See_Comment N [Auto mated message] The system which ge nerated this result transmit abdelrahman reference range : <=37. The reference range was not used to interpr et this result as gurpreet l/abnormal. [facility] HospitalYzcrnwlKUNDHLAKH4364-73-04 06:42:00 Test Item Value Reference Range Interpretation Comments Calcium Lvl (test code = Calcium Lvl) 9.0 8.5-10.5 N [facility] HospitalMexdlxnREVEZOUKH1987-63-20 06:42:00 Test Item Value Reference Range Interpretation Comments Bili Total (test code = Bili Total) 0.4 0.2-1.3 N [facility] HospitalBvpyhlpBQCDWECLJ9030-51-40 06:42:00 Test Item Value Reference Range Interpretation Comments Chloride Lvl (test code = Chloride Lvl) 104 95-109 N [facility] HospitalOgcebjySLPIMAEBR5225-18-95 06:42:00 Test Item Value Reference Range Interpretation Comments CO2 (test code = CO2) 24 24-32 N [facility]HaenmtcUMYZWDXUB7500-62-98 06:42:00 Test Item Value Reference Range Interpretation Comments Sodium Lvl (test code = Sodium Lvl) 141 135-145 N [facility]jpmkrrBUGSFRANC4700-83-89 06:42:00 Test Item Value Reference Range Interpretation Comments Potassium Lvl (test code = Potassium 3.9 3.5-5.1 N Lvl) [facility]SqdwwpxZWQQSEJLV2978-39-29 06:42:00 Test Item Value Reference Range Interpretation Comments BUN (test code = BUN) 8 7-22 N [facility] HospitalXpcyyuhHYCYWZHWU6664-72-15 06:42:00 Test Item Value Reference Range Interpretation Comments Creatinine Lvl (test code = Creatinine 1.0 0.5-1.4 N Lvl) [facility]ressVirxwnhKFXSKKAPTN7624-91-62 06:42:00 Test Item Value Reference Range Interpretation Comments MCH (test code = MCH) 30.2 pg 27.0-31.0 N [facility] CypressPxtkhmaSDSMTPYLTD9327-14-40 06:42:00 Test Item Value Reference Range Interpretation Comments Platelet (test code = Platelet) 134 133-450 N [facility] CypressMytwsuoIOLUDNJAWJ0796-20-47 06:42:00 Test Item Value Reference Range Interpretation Comments MPV (test code = MPV) 10.1 7.4-10.4 N [facility] CypressYtvjpphQVZRHGVMHG9280-74-03 06:42:00 Test Item Value Reference Range Interpretation Comments RDW (test code = RDW) 13.4 11.5-14.5 N [facility] CypressKdyoieuHMYHQUGZWF5847-88-29 06:42:00 Test Item Value Reference Range Interpretation Comments Hct (test code = Hct) 39.4 42.0-54.0 L [facility] CypressDbyosaxDBFQZXNDFT0732-51-06 06:42:00 Test Item Value Reference Range Interpretation Comments MCV (test code = MCV) 89.5 80.0-94.0 N [facility] CypressPfeoylzPIPBLVYOGD5535-83-87 06:42:00 Test Item Value Reference Range Interpretation Comments Hgb (test code = Hgb) 13.3 14.0-18.0 L [facility] CypressTvdxtdkZZVBGMDBEK2108-13-01 06:42:00 Test Item Value Reference Range Interpretation Comments MCHC (test code = MCHC) 33.7 32.0-36.0 N [facility] CypressCqdodknCPNGKZBDYX4345-97-98 06:42:00 Test Item Value Reference Range Interpretation Comments WBC (test code = WBC) 12.5 3.7-10.4 H [facility] CypressUekwhxlQSBMHHHHPF1464-32-54 06:42:00 Test Item Value Reference Range Interpretation Comments RBC (test code = RBC) 4.40 4.70-6.10 L [facility] CypressVvbnfygANDMDVXLZH2052-93-85 06:42:00 Test Item Value Reference Range Interpretation Comments Lymphocytes (test code = Lymphocytes) 9.4 20.0-40.0 L [facility] CypressNhkmislHPKJSNVTGG0779-84-55 06:42:00 Test Item Value Reference Range Interpretation Comments Monocytes (test code = Monocytes) 10.8 2.0-12.0 N [facility] CypressOqavvxkGOFWDNUMFK3018-39-61 06:42:00 Test Item Value Reference Range Interpretation Comments Segs (test code = Segs) 79.6 45.0-75.0 H [facility] CypressCzwtsxbDJRGUXYXQL8933-72-51 06:42:00 Test Item Value Reference Range Interpretation Comments Eosinophils (test code = 0.1 See_Comment N [A utomated message] The Eosinophils) system which ge nerated this result tra nsmitted reference range : <=4.0. The reference r annemarie was not used to int erpret this result as normal/abnormal . [facility] CypressQlkjgmnZOTYPCXLVQ3120-13-10 06:42:00 Test Item Value Reference Range Interpretation Comments Basophils (test code = 0.1 See_Comment N [Aut omated message] The Basophils) system which ge nerated this result tra nsmitted reference range : <=1.0. The reference r annemarie was not used to int erpret this result as normal/abnormal . [facility] CypressSozccmrTKPYODPKGR9202-61-33 06:42:00 Test Item Value Reference Range Interpretation Comments Segs-Bands # (test code = Segs-Bands #) 9.9 1.5-8.1 H [facility] CypressWmzfhcuZJSSZMRLFO8492-34-19 06:42:00 Test Item Value Reference Range Interpretation Comments Lymphocytes # (test code = Lymphocytes 1.2 1.0-5.5 N #) [facility] CypressYprmyunOEAKNFNCWX3663-12-60 06:42:00 Test Item Value Reference Range Interpretation Comments Monocytes # (test code 1.3 See_Comment H [Aut omated message] The = Monocytes #) system which generated this result tra nsmitted reference range : <=0.8. The reference r annemarie was not used to int erpret this result as normal/abnormal . [facility] HospitalHasslrgTHRSPUAVI0898-09-08 06:42:00 Test Item Value Reference Range Interpretation Comments B/C Ratio (test code = B/C Ratio) 8 6-25 N [facility] HospitalYatehnoXIRMCXHNY1235-98-70 06:42:00 Test Item Value Reference Range Interpretation Comments Globulin (test code = Globulin) 2.5 2.0-4.0 N [facility] HospitalYjehrywLEWZVLPFZ8284-60-96 06:42:00 Test Item Value Reference Range Interpretation Comments AGAP (test code = AGAP) 16.9 10.0-20.0 N [facility] HospitalCzkfbujNGSTUKAZP0857-56-08 06:42:00 Test Item Value Reference Range Interpretation Comments A/G Ratio (test code = A/G Ratio) 1.6 0.7-1.6 N [facility] HospitalJwdeqrwILSOBXJEB3819-81-65 06:42:00 Test Item Value Reference Range Interpretation Comments eGFR (test code = eGFR) 105 [facility] HospitalPruwgdwBGPYVKVGZ7517-26-88 06:42:00 Test Item Value Reference Range Interpretation Comments Glucose Lvl (test code = Glucose Lvl) 109 70-99 H [facility] HospitalTjzhckmHRECDCVOL8791-02-24 06:42:00 Test Item Value Reference Range Interpretation Comments ALT (test code = ALT) 26 See_Comment N [Auto mated message] The system which ge nerated this result transmit abdelrahman reference range : <=65. The reference range was not used to interpr et this result as gurpreet l/abnormal. [facility] HospitalTtcfdftBHIICUKVG1035-01-25 06:42:00 Test Item Value Reference Range Interpretation Comments Albumin Lvl (test code = Albumin Lvl) 3.9 3.5-5.0 N [facility] HospitalVukmphbODMNZBPXF1823-58-75 06:42:00 Test Item Value Reference Range Interpretation Comments Alk Phos (test code = Alk Phos) 47 39-136 N [facility] HospitalBvsgonhQDFZICOWV2660-60-71 06:42:00 Test Item Value Reference Range Interpretation Comments Total Protein (test code = Total 6.4 6.4-8.4 N Protein) [facility] HospitalYlkhnfkVXVREQWLV9555-26-95 06:42:00 Test Item Value Reference Range Interpretation Comments AST (test code = AST) 31 See_Comment N [Auto mated message] The system which ge nerated this result transmit abdelrahman reference range : <=37. The reference range was not used to interpr et this result as gurpreet l/abnormal. [facility] HospitalKqozgnyWKQPTNAWL5060-65-48 06:42:00 Test Item Value Reference Range Interpretation Comments Calcium Lvl (test code = Calcium Lvl) 9.0 8.5-10.5 N [facility] HospitalDndrzwmAVUGIKSYS4197-05-80 06:42:00 Test Item Value Reference Range Interpretation Comments Bili Total (test code = Bili Total) 0.4 0.2-1.3 N [facility] HospitalVhcbiyfYEFCTUQIR6713-97-32 06:42:00 Test Item Value Reference Range Interpretation Comments Chloride Lvl (test code = Chloride Lvl) 104 95-109 N [facility] HospitalJiqbucmVFAULYUWJ4267-07-78 06:42:00 Test Item Value Reference Range Interpretation Comments CO2 (test code = CO2) 24 24-32 N [facility] HospitalWrkgmhjQMWSCXDGW2808-27-01 06:42:00 Test Item Value Reference Range Interpretation Comments Sodium Lvl (test code = Sodium Lvl) 141 135-145 N [facility] HospitalUezjtmoATXYXFSES2796-44-97 06:42:00 Test Item Value Reference Range Interpretation Comments Potassium Lvl (test code = Potassium 3.9 3.5-5.1 N Lvl) [facility] HospitalMebzibvNHDPNMLUX8543-86-40 06:42:00 Test Item Value Reference Range Interpretation Comments BUN (test code = BUN) 8 7-22 N [facility] HospitalJwbobhnUUYZEHCVK9227-50-25 06:42:00 Test Item Value Reference Range Interpretation Comments Creatinine Lvl (test code = Creatinine 1.0 0.5-1.4 N Lvl) [facility] CypressUagfqryMXNCVRKEEL4928-69-29 06:42:00 Test Item Value Reference Range Interpretation Comments MCH (test code = MCH) 30.2 pg 27.0-31.0 N [facility] CypressGwutznlSNWCTWHMGK0202-89-85 06:42:00 Test Item Value Reference Range Interpretation Comments Platelet (test code = Platelet) 134 133-450 N [facility] CypressRfsocfyBNIXGYLSGE7160-73-38 06:42:00 Test Item Value Reference Range Interpretation Comments MPV (test code = MPV) 10.1 7.4-10.4 N [facility] CypressKlojrzpIABONWIHCZ6588-15-75 06:42:00 Test Item Value Reference Range Interpretation Comments RDW (test code = RDW) 13.4 11.5-14.5 N [facility] CypressGnjulosWSRUVTYTEB7485-64-48 06:42:00 Test Item Value Reference Range Interpretation Comments Hct (test code = Hct) 39.4 42.0-54.0 L [facility] CypressMfdjefrDGAUITWUPG9573-93-67 06:42:00 Test Item Value Reference Range Interpretation Comments MCV (test code = MCV) 89.5 80.0-94.0 N [facility] CypressMjkjnzjXWXIHKTMRD1705-73-32 06:42:00 Test Item Value Reference Range Interpretation Comments Hgb (test code = Hgb) 13.3 14.0-18.0 L [facility] CypressJxuzppvWQGLKELFUH0893-39-61 06:42:00 Test Item Value Reference Range Interpretation Comments MCHC (test code = MCHC) 33.7 32.0-36.0 N [facility] CypressUcclsppUNGRCRPUJV6038-27-69 06:42:00 Test Item Value Reference Range Interpretation Comments WBC (test code = WBC) 12.5 3.7-10.4 H [facility] CypressWezomqsEKVWTSEEQH2273-09-38 06:42:00 Test Item Value Reference Range Interpretation Comments RBC (test code = RBC) 4.40 4.70-6.10 L [facility] CypressPglkgmcZBMUHVWDCS4235-86-15 06:42:00 Test Item Value Reference Range Interpretation Comments Lymphocytes (test code = Lymphocytes) 9.4 20.0-40.0 L [facility] CypressNistfojKQZSAXJKRL7520-90-64 06:42:00 Test Item Value Reference Range Interpretation Comments Monocytes (test code = Monocytes) 10.8 2.0-12.0 N [facility] CypressUgnseejTAKOFOPSTI6493-92-15 06:42:00 Test Item Value Reference Range Interpretation Comments Segs (test code = Segs) 79.6 45.0-75.0 H [facility] CypressHvjucjvWCOUYFIKZX2236-77-73 06:42:00 Test Item Value Reference Range Interpretation Comments Eosinophils (test code = 0.1 See_Comment N [A utomated message] The Eosinophils) system which ge nerated this result tra nsmitted reference range : <=4.0. The reference r annemarie was not used to int erpret this result as normal/abnormal . [facility] CypressRtqvcakGHHAYSIZRM9624-29-39 06:42:00 Test Item Value Reference Range Interpretation Comments Basophils (test code = 0.1 See_Comment N [Aut omated message] The Basophils) system which ge nerated this result tra nsmitted reference range : <=1.0. The reference r annemarie was not used to int erpret this result as normal/abnormal . [facility] CypressIsyprmoOFOVWZPTAJ4678-65-49 06:42:00 Test Item Value Reference Range Interpretation Comments Segs-Bands # (test code = Segs-Bands #) 9.9 1.5-8.1 H [facility] CypressPbzzixlPBLMKDIBQW5128-66-12 06:42:00 Test Item Value Reference Range Interpretation Comments Lymphocytes # (test code = Lymphocytes 1.2 1.0-5.5 N #) [facility] CypressCqbzwnkAIKGKTZXSN1504-07-17 06:42:00 Test Item Value Reference Range Interpretation Comments Monocytes # (test code 1.3 See_Comment H [Aut omated message] The = Monocytes #) system which generated this result tra nsmitted reference range : <=0.8. The reference r annemarie was not used to int erpret this result as normal/abnormal . [facility] HospitalQfnoqubBHRUNZMRL5361-27-81 06:42:00 Test Item Value Reference Range Interpretation Comments B/C Ratio (test code = B/C Ratio) 8 6-25 N [facility] HospitalGtcdjcaLHDCBCNJY4700-43-26 06:42:00 Test Item Value Reference Range Interpretation Comments Globulin (test code = Globulin) 2.5 2.0-4.0 N [facility] HospitalToqmjsxQHWZXARIB1545-62-93 06:42:00 Test Item Value Reference Range Interpretation Comments AGAP (test code = AGAP) 16.9 10.0-20.0 N [facility] HospitalDqevrfoAVWONMSCP8861-10-97 06:42:00 Test Item Value Reference Range Interpretation Comments A/G Ratio (test code = A/G Ratio) 1.6 0.7-1.6 N [facility] HospitalJiplymiFKZJHUZRG7664-03-50 06:42:00 Test Item Value Reference Range Interpretation Comments eGFR (test code = eGFR) 105 [facility] HospitalWxandieNAZSTQFRD2078-64-89 06:42:00 Test Item Value Reference Range Interpretation Comments Glucose Lvl (test code = Glucose Lvl) 109 70-99 H [facility] HospitalIghvaluCISGVZUYY0353-96-96 06:42:00 Test Item Value Reference Range Interpretation Comments ALT (test code = ALT) 26 See_Comment N [Auto mated message] The system which ge nerated this result transmit abdelrahman reference range : <=65. The reference range was not used to interpr et this result as gurpreet l/abnormal. [facility] HospitalCcsddlfUMYFNXFYD2772-43-19 06:42:00 Test Item Value Reference Range Interpretation Comments Albumin Lvl (test code = Albumin Lvl) 3.9 3.5-5.0 N [facility] HospitalWfpbxnzITXQGEVFL2567-16-91 06:42:00 Test Item Value Reference Range Interpretation Comments Alk Phos (test code = Alk Phos) 47 39-136 N [facility] HospitalLpbelrsTITAQFJFR7488-59-37 06:42:00 Test Item Value Reference Range Interpretation Comments Total Protein (test code = Total 6.4 6.4-8.4 N Protein) [facility] HospitalBsveewjIZHTNLRNX3136-92-86 06:42:00 Test Item Value Reference Range Interpretation Comments AST (test code = AST) 31 See_Comment N [Auto mated message] The system which ge nerated this result transmit abdelrahman reference range : <=37. The reference range was not used to interpr et this result as gurpreet l/abnormal. [facility] HospitalFswxwqfNETKZROUO3400-60-77 06:42:00 Test Item Value Reference Range Interpretation Comments Calcium Lvl (test code = Calcium Lvl) 9.0 8.5-10.5 N [facility] HospitalGaecpgjPCZVLILSZ2021-68-14 06:42:00 Test Item Value Reference Range Interpretation Comments Bili Total (test code = Bili Total) 0.4 0.2-1.3 N [facility] HospitalEivapjmJAEGPWIIQ1942-33-17 06:42:00 Test Item Value Reference Range Interpretation Comments Chloride Lvl (test code = Chloride Lvl) 104 95-109 N [facility] HospitalTjruehsQGTXZGCTH6074-45-68 06:42:00 Test Item Value Reference Range Interpretation Comments CO2 (test code = CO2) 24 24-32 N [facility] HospitalQzctprxIQZXLXLMJ3677-52-68 06:42:00 Test Item Value Reference Range Interpretation Comments Sodium Lvl (test code = Sodium Lvl) 141 135-145 N [facility] HospitalKxvuibdCJBWRVAVF4619-55-49 06:42:00 Test Item Value Reference Range Interpretation Comments Potassium Lvl (test code = Potassium 3.9 3.5-5.1 N Lvl) [facility] HospitalLxexmbaKVDKJHBCT0387-46-51 06:42:00 Test Item Value Reference Range Interpretation Comments BUN (test code = BUN) 8 7-22 N [facility] HospitalPtwfdkuBMTHFXBNS2643-57-29 06:42:00 Test Item Value Reference Range Interpretation Comments Creatinine Lvl (test code = Creatinine 1.0 0.5-1.4 N Lvl) [facility] CypressKjuqekwAIRZSWTKRW4223-53-14 06:42:00 Test Item Value Reference Range Interpretation Comments MCH (test code = MCH) 30.2 pg 27.0-31.0 N [facility] CypressEtkzptwGTGSKMQFVH7556-23-99 06:42:00 Test Item Value Reference Range Interpretation Comments Platelet (test code = Platelet) 134 133-450 N [facility] CypressZxaqgniHOHZUCTFFY1280-42-05 06:42:00 Test Item Value Reference Range Interpretation Comments MPV (test code = MPV) 10.1 7.4-10.4 N [facility] CypressJtxbiqrFTMXVTLHMQ9696-92-28 06:42:00 Test Item Value Reference Range Interpretation Comments RDW (test code = RDW) 13.4 11.5-14.5 N [facility] CypressIqqnaurKYFRJSHIWL0941-26-34 06:42:00 Test Item Value Reference Range Interpretation Comments Hct (test code = Hct) 39.4 42.0-54.0 L [facility] CypressEzpdwnuAJWIKUWYFH2335-42-35 06:42:00 Test Item Value Reference Range Interpretation Comments MCV (test code = MCV) 89.5 80.0-94.0 N [facility] CypressRqypkwiLTXUTKCWXP9260-00-36 06:42:00 Test Item Value Reference Range Interpretation Comments Hgb (test code = Hgb) 13.3 14.0-18.0 L [facility] CypressWlsczzwCHFYEUTRZG1743-32-04 06:42:00 Test Item Value Reference Range Interpretation Comments MCHC (test code = MCHC) 33.7 32.0-36.0 N [facility] CypressRlkpplnTZUXNSJFQF7469-83-69 06:42:00 Test Item Value Reference Range Interpretation Comments WBC (test code = WBC) 12.5 3.7-10.4 H [facility] CypressDupzhtlLFRJTBFPHY5781-36-41 06:42:00 Test Item Value Reference Range Interpretation Comments RBC (test code = RBC) 4.40 4.70-6.10 L [facility] CypressFmavbhgUNRZWOHBHA8785-87-70 06:42:00 Test Item Value Reference Range Interpretation Comments Lymphocytes (test code = Lymphocytes) 9.4 20.0-40.0 L [facility] CypressKgclrifSQCVZDJNJB7816-10-94 06:42:00 Test Item Value Reference Range Interpretation Comments Monocytes (test code = Monocytes) 10.8 2.0-12.0 N [facility] CypressOjvdcnqBHKGUDAIRR8278-11-52 06:42:00 Test Item Value Reference Range Interpretation Comments Segs (test code = Segs) 79.6 45.0-75.0 H [facility] CypressEcpzljvGIVWTXHDHI0493-83-12 06:42:00 Test Item Value Reference Range Interpretation Comments Eosinophils (test code = 0.1 See_Comment N [A utomated message] The Eosinophils) system which ge nerated this result tra nsmitted reference range : <=4.0. The reference r annemarie was not used to int erpret this result as normal/abnormal . [facility] CypressArrgswsJAELOJVJSQ9486-19-21 06:42:00 Test Item Value Reference Range Interpretation Comments Basophils (test code = 0.1 See_Comment N [Aut omated message] The Basophils) system which ge nerated this result tra nsmitted reference range : <=1.0. The reference r annemarie was not used to int erpret this result as normal/abnormal . [facility] CypressDxjxoscLCYEDEKBPT2951-01-30 06:42:00 Test Item Value Reference Range Interpretation Comments Segs-Bands # (test code = Segs-Bands #) 9.9 1.5-8.1 H [facility] CypressXznndacPLOBLAIVED4925-37-63 06:42:00 Test Item Value Reference Range Interpretation Comments Lymphocytes # (test code = Lymphocytes 1.2 1.0-5.5 N #) [facility] CypressJewymwqUDIKYWNBJM2978-28-27 06:42:00 Test Item Value Reference Range Interpretation Comments Monocytes # (test code 1.3 See_Comment H [Aut omated message] The = Monocytes #) system which generated this result tra nsmitted reference range : <=0.8. The reference r annemarie was not used to int erpret this result as normal/abnormal . [facility] HospitalRphllsfJOGVJNMJD1941-28-35 06:42:00 Test Item Value Reference Range Interpretation Comments B/C Ratio (test code = B/C Ratio) 8 6-25 N [facility] HospitalVisvnlkQNAFFXLEL0748-67-74 06:42:00 Test Item Value Reference Range Interpretation Comments Globulin (test code = Globulin) 2.5 2.0-4.0 N [facility] HospitalTpduoozOCLPODYEG6897-22-55 06:42:00 Test Item Value Reference Range Interpretation Comments AGAP (test code = AGAP) 16.9 10.0-20.0 N [facility] HospitalHcwrjljYZTXAXTWO4250-69-85 06:42:00 Test Item Value Reference Range Interpretation Comments A/G Ratio (test code = A/G Ratio) 1.6 0.7-1.6 N [facility] HospitalFmbgvnsJVXETVCLN8368-17-93 06:42:00 Test Item Value Reference Range Interpretation Comments eGFR (test code = eGFR) 105 [facility] HospitalFckugonYDPRZFTGH4742-80-89 06:42:00 Test Item Value Reference Range Interpretation Comments Glucose Lvl (test code = Glucose Lvl) 109 70-99 H [facility] HospitalPkqsbjzLRGLHHKZW7169-18-09 06:42:00 Test Item Value Reference Range Interpretation Comments ALT (test code = ALT) 26 See_Comment N [Auto mated message] The system which ge nerated this result transmit abdelrahman reference range : <=65. The reference range was not used to interpr et this result as gurpreet l/abnormal. [facility] HospitalZeloaxuNTWAVEAMW7654-74-83 06:42:00 Test Item Value Reference Range Interpretation Comments Albumin Lvl (test code = Albumin Lvl) 3.9 3.5-5.0 N [facility] HospitalFlzyireYWFQTTDIF5891-77-17 06:42:00 Test Item Value Reference Range Interpretation Comments Alk Phos (test code = Alk Phos) 47 39-136 N [facility] HospitalUslkhbhFTEYFUHHF5446-25-41 06:42:00 Test Item Value Reference Range Interpretation Comments Total Protein (test code = Total 6.4 6.4-8.4 N Protein) [facility] HospitalFgrxxssSGWNXEQVM7965-43-35 06:42:00 Test Item Value Reference Range Interpretation Comments AST (test code = AST) 31 See_Comment N [Auto mated message] The system which ge nerated this result transmit abdelrahman reference range : <=37. The reference range was not used to interpr et this result as gurpreet l/abnormal. [facility] HospitalLfbxdlyORPGXDPNO4368-23-93 06:42:00 Test Item Value Reference Range Interpretation Comments Calcium Lvl (test code = Calcium Lvl) 9.0 8.5-10.5 N [facility] HospitalJyxqeloAALUVSVRM7466-84-16 06:42:00 Test Item Value Reference Range Interpretation Comments Bili Total (test code = Bili Total) 0.4 0.2-1.3 N [facility] HospitalJdejgudOQDESTGXU9821-63-49 06:42:00 Test Item Value Reference Range Interpretation Comments Chloride Lvl (test code = Chloride Lvl) 104 95-109 N [facility] HospitalSmgdzpvJFEXXYDCY9006-31-40 06:42:00 Test Item Value Reference Range Interpretation Comments CO2 (test code = CO2) 24 24-32 N [facility] HospitalBkenxpzDTPJNVWYC5010-03-63 06:42:00 Test Item Value Reference Range Interpretation Comments Sodium Lvl (test code = Sodium Lvl) 141 135-145 N [facility] HospitalQxjuilrPLBQLUVHM2048-11-78 06:42:00 Test Item Value Reference Range Interpretation Comments Potassium Lvl (test code = Potassium 3.9 3.5-5.1 N Lvl) [facility] HospitalNvznhqrLXQFWZQXK5949-21-56 06:42:00 Test Item Value Reference Range Interpretation Comments BUN (test code = BUN) 8 7-22 N [facility] HospitalItjbaoqAXDMJRXLB5993-94-49 06:42:00 Test Item Value Reference Range Interpretation Comments Creatinine Lvl (test code = Creatinine 1.0 0.5-1.4 N Lvl) [facility] CypressBxeltirXYJJPHSVVI0124-18-28 06:42:00 Test Item Value Reference Range Interpretation Comments MCH (test code = MCH) 30.2 pg 27.0-31.0 N [facility] CypressHwdnpvmEQUXDCNUHL9209-39-15 06:42:00 Test Item Value Reference Range Interpretation Comments Platelet (test code = Platelet) 134 133-450 N [facility] CypressTwkeqgwZXBHOSYYJY0438-55-81 06:42:00 Test Item Value Reference Range Interpretation Comments MPV (test code = MPV) 10.1 7.4-10.4 N [facility] CypressMfppscaGTVYPWMCIE7616-06-52 06:42:00 Test Item Value Reference Range Interpretation Comments RDW (test code = RDW) 13.4 11.5-14.5 N [facility] CypressTbhxlptIGTHBKYVGK0588-68-63 06:42:00 Test Item Value Reference Range Interpretation Comments Hct (test code = Hct) 39.4 42.0-54.0 L [facility] CypressIzoojkqCHVIRICTCK7710-53-30 06:42:00 Test Item Value Reference Range Interpretation Comments MCV (test code = MCV) 89.5 80.0-94.0 N [facility] CypressNruvlfaYFTPEKMAIK9294-99-05 06:42:00 Test Item Value Reference Range Interpretation Comments Hgb (test code = Hgb) 13.3 14.0-18.0 L [facility] CypressShoqfkrFARQSVVOFQ3801-95-60 06:42:00 Test Item Value Reference Range Interpretation Comments MCHC (test code = MCHC) 33.7 32.0-36.0 N [facility] CypressTovkpqpSPWWGQFIEN9767-57-16 06:42:00 Test Item Value Reference Range Interpretation Comments WBC (test code = WBC) 12.5 3.7-10.4 H [facility] CypressTixnlpiTWZNVVBWGR6354-56-55 06:42:00 Test Item Value Reference Range Interpretation Comments RBC (test code = RBC) 4.40 4.70-6.10 L [facility] [place]FLHE3557-58-41 06:42:00 Test Item Value Reference Range Interpretation Comments Lymphocytes (test code = Lymphocytes) 9.4 20.0-40.0 L [facility]YgfjfydZBFGCRVOPD3799-25-37 06:42:00 Test Item Value Reference Range Interpretation Comments Monocytes (test code = Monocytes) 10.8 2.0-12.0 N [facility] [place]ressBfwtyxyAAADQWKLEB4611-19-11 06:42:00 Test Item Value Reference Range Interpretation Comments Segs (test code = Segs) 79.6 45.0-75.0 H [facility] [place]ressUahiuqhIJYAIKEZPJ1852-78-07 06:42:00 Test Item Value Reference Range Interpretation Comments Eosinophils (test code = 0.1 See_Comment N [A utomated message] The Eosinophils) system which ge nerated this result tra nsmitted reference range : <=4.0. The reference r annemarie was not used to int erpret this result as normal/abnormal . [facility] [place]ressBypndygUUUCFKXEWM6654-85-71 06:42:00 Test Item Value Reference Range Interpretation Comments Basophils (test code = 0.1 See_Comment N [Aut omated message] The Basophils) system which ge nerated this result tra nsmitted reference range : <=1.0. The reference r annemarie was not used to int erpret this result as normal/abnormal . [facility] [place]ressVkkhbgtOOOSITVXGO9257-43-06 06:42:00 Test Item Value Reference Range Interpretation Comments Segs-Bands # (test code = Segs-Bands #) 9.9 1.5-8.1 H [facility] [place]ressDdkxnhcXTULTSMBGH2553-48-34 06:42:00 Test Item Value Reference Range Interpretation Comments Lymphocytes # (test code = Lymphocytes 1.2 1.0-5.5 N #) [facility] [place]ressEzovxlpCKLWHCMNGW9714-45-15 06:42:00 Test Item Value Reference Range Interpretation Comments Monocytes # (test code 1.3 See_Comment H [Aut omated message] The = Monocytes #) system which generated this result tra nsmitted reference range : <=0.8. The reference r annemarie was not used to int erpret this result as normal/abnormal . [facility]KffkwxkZGQSBNTSB1809-00-42 06:42:00 Test Item Value Reference Range Interpretation Comments B/C Ratio (test code = B/C Ratio) 8 6-25 N [facility] HospitalAcaalumAWXGVOLVX2338-40-27 06:42:00 Test Item Value Reference Range Interpretation Comments Globulin (test code = Globulin) 2.5 2.0-4.0 N [facility] HospitalIjfmudbFSXRVLWTV0299-65-84 06:42:00 Test Item Value Reference Range Interpretation Comments AGAP (test code = AGAP) 16.9 10.0-20.0 N [facility] HospitalPvcoddmASGBUZBFE2057-84-15 06:42:00 Test Item Value Reference Range Interpretation Comments A/G Ratio (test code = A/G Ratio) 1.6 0.7-1.6 N [facility] HospitalStiijniJHDVJWBNA9475-17-02 06:42:00 Test Item Value Reference Range Interpretation Comments eGFR (test code = eGFR) 105 [facility] HospitalIwcphslHHWYYKSYW3121-06-72 06:42:00 Test Item Value Reference Range Interpretation Comments Glucose Lvl (test code = Glucose Lvl) 109 70-99 H [facility] HospitalWpgicdsOGZAPCLKW6006-60-59 06:42:00 Test Item Value Reference Range Interpretation Comments ALT (test code = ALT) 26 See_Comment N [Auto mated message] The system which ge nerated this result transmit abdelrahman reference range : <=65. The reference range was not used to interpr et this result as gurpreet l/abnormal. [facility] HospitalJlvmneoQMQZYNWWD5523-07-72 06:42:00 Test Item Value Reference Range Interpretation Comments Albumin Lvl (test code = Albumin Lvl) 3.9 3.5-5.0 N [facility] HospitalItecwddHPFBPLNAT3102-15-99 06:42:00 Test Item Value Reference Range Interpretation Comments Alk Phos (test code = Alk Phos) 47 39-136 N [facility] HospitalVoszstiNAPZHFRQF3351-14-96 06:42:00 Test Item Value Reference Range Interpretation Comments Total Protein (test code = Total 6.4 6.4-8.4 N Protein) [facility] HospitalMjdkzztUUAGVWYZV9756-99-44 06:42:00 Test Item Value Reference Range Interpretation Comments AST (test code = AST) 31 See_Comment N [Auto mated message] The system which ge nerated this result transmit abdelrahman reference range : <=37. The reference range was not used to interpr et this result as gurpreet l/abnormal. [facility] HospitalTiiruimSANQFBNFD6423-55-12 06:42:00 Test Item Value Reference Range Interpretation Comments Calcium Lvl (test code = Calcium Lvl) 9.0 8.5-10.5 N [facility] HospitalUunzvszETOODYETQ8181-18-78 06:42:00 Test Item Value Reference Range Interpretation Comments Bili Total (test code = Bili Total) 0.4 0.2-1.3 N [facility] HospitalSptshrqPIUWSYHTL5526-37-75 06:42:00 Test Item Value Reference Range Interpretation Comments Chloride Lvl (test code = Chloride Lvl) 104 95-109 N [facility] HospitalXyivuvwYOWFXHXHZ0326-00-54 06:42:00 Test Item Value Reference Range Interpretation Comments CO2 (test code = CO2) 24 24-32 N [facility] HospitalCpnhoukXCJDPLOAD0761-85-74 06:42:00 Test Item Value Reference Range Interpretation Comments Sodium Lvl (test code = Sodium Lvl) 141 135-145 N [facility] HospitalDibkqkvZSOGJMIQU9404-14-97 06:42:00 Test Item Value Reference Range Interpretation Comments Potassium Lvl (test code = Potassium 3.9 3.5-5.1 N Lvl) [facility] HospitalSuykysuBXHNTCBCB1520-30-23 06:42:00 Test Item Value Reference Range Interpretation Comments BUN (test code = BUN) 8 7-22 N [facility] HospitalLxuuiujVIWVXIWTQ7015-27-38 06:42:00 Test Item Value Reference Range Interpretation Comments Creatinine Lvl (test code = Creatinine 1.0 0.5-1.4 N Lvl) [facility]ressLxnxxtgVEUICPZWMO0889-46-33 06:42:00 Test Item Value Reference Range Interpretation Comments MCH (test code = MCH) 30.2 pg 27.0-31.0 N [facility] [place]ressJkxcrxkXAIZKHJRTY5270-16-78 06:42:00 Test Item Value Reference Range Interpretation Comments Platelet (test code = Platelet) 134 133-450 N [facility] [place]ressHheomflDZNDCXKNBO4687-95-35 06:42:00 Test Item Value Reference Range Interpretation Comments MPV (test code = MPV) 10.1 7.4-10.4 N [facility] [place]ressLhxisidHDEPSGBGXA1697-76-54 06:42:00 Test Item Value Reference Range Interpretation Comments RDW (test code = RDW) 13.4 11.5-14.5 N [facility] [place]ressAmytivlMHUGCSIQUP1629-91-68 06:42:00 Test Item Value Reference Range Interpretation Comments Hct (test code = Hct) 39.4 42.0-54.0 L [facility] [place]ressPxksgvcVTUIVEWNVD5035-76-30 06:42:00 Test Item Value Reference Range Interpretation Comments MCV (test code = MCV) 89.5 80.0-94.0 N [facility] [place]ressEviarozIFEVNRSRIP7053-67-09 06:42:00 Test Item Value Reference Range Interpretation Comments Hgb (test code = Hgb) 13.3 14.0-18.0 L [facility] [place]XnwqntaBVTLACQSTI6924-97-66 06:42:00 Test Item Value Reference Range Interpretation Comments MCHC (test code = MCHC) 33.7 32.0-36.0 N [facility] [place]ressOddytvcRMQCERYWZE3606-71-69 06:42:00 Test Item Value Reference Range Interpretation Comments WBC (test code = WBC) 12.5 3.7-10.4 H [facility] CypressNmmyumrAICLEULMHE7015-56-38 06:42:00 Test Item Value Reference Range Interpretation Comments RBC (test code = RBC) 4.40 4.70-6.10 L [facility] [place]ressCrvcwwmPUSBDCGQYY0984-75-52 06:42:00 Test Item Value Reference Range Interpretation Comments Lymphocytes (test code = Lymphocytes) 9.4 20.0-40.0 L [facility] [place]ressZmnrpnxTFMASDHAIP7558-19-67 06:42:00 Test Item Value Reference Range Interpretation Comments Monocytes (test code = Monocytes) 10.8 2.0-12.0 N [facility] CypressRqbccvgLXCIWPNDHK7364-41-53 06:42:00 Test Item Value Reference Range Interpretation Comments Segs (test code = Segs) 79.6 45.0-75.0 H [facility] [place]ressTtwezzqRJIUZSXGFR6348-84-12 06:42:00 Test Item Value Reference Range Interpretation Comments Eosinophils (test code = 0.1 See_Comment N [A utomated message] The Eosinophils) system which ge nerated this result tra nsmitted reference range : <=4.0. The reference r annemarie was not used to int erpret this result as normal/abnormal . [facility] [place]ressVyelsnxGCOQALLFWA2873-06-32 06:42:00 Test Item Value Reference Range Interpretation Comments Basophils (test code = 0.1 See_Comment N [Aut omated message] The Basophils) system which ge nerated this result tra nsmitted reference range : <=1.0. The reference r annemarie was not used to int erpret this result as normal/abnormal . [facility] [place]ressJbfqmywBYIOQWDQSQ6155-56-21 06:42:00 Test Item Value Reference Range Interpretation Comments Segs-Bands # (test code = Segs-Bands #) 9.9 1.5-8.1 H [facility] [place]ressDnndailAINNGGHAJL3459-06-20 06:42:00 Test Item Value Reference Range Interpretation Comments Lymphocytes # (test code = Lymphocytes 1.2 1.0-5.5 N #) [facility] [place]ressIvczdiqIOXCODAKYE3395-31-99 06:42:00 Test Item Value Reference Range Interpretation Comments Monocytes # (test code 1.3 See_Comment H [Aut omated message] The = Monocytes #) system which generated this result tra nsmitted reference range : <=0.8. The reference r annemarie was not used to int erpret this result as normal/abnormal . [facility] HospitalWsynawkQTOWEZSCO3437-22-26 06:42:00 Test Item Value Reference Range Interpretation Comments B/C Ratio (test code = B/C Ratio) 8 6-25 N [facility] HospitalYebtqbfGEWVLLUJH0591-40-27 06:42:00 Test Item Value Reference Range Interpretation Comments Globulin (test code = Globulin) 2.5 2.0-4.0 N [facility] HospitalHylosjlHADMESDLR3854-06-95 06:42:00 Test Item Value Reference Range Interpretation Comments AGAP (test code = AGAP) 16.9 10.0-20.0 N [facility] HospitalNdpeyasMKCOYWRPG9718-43-88 06:42:00 Test Item Value Reference Range Interpretation Comments A/G Ratio (test code = A/G Ratio) 1.6 0.7-1.6 N [facility] HospitalFxjgyhuLATHBHONE1654-67-51 06:42:00 Test Item Value Reference Range Interpretation Comments eGFR (test code = eGFR) 105 [facility] HospitalFrcqfbtWJSZWTLPV9158-61-88 06:42:00 Test Item Value Reference Range Interpretation Comments Glucose Lvl (test code = Glucose Lvl) 109 70-99 H [facility] HospitalMiihzsvPJEBWWRBL0425-95-91 06:42:00 Test Item Value Reference Range Interpretation Comments ALT (test code = ALT) 26 See_Comment N [Auto mated message] The system which ge nerated this result transmit abdelrahman reference range : <=65. The reference range was not used to interpr et this result as gurpreet l/abnormal. [facility] HospitalXlqufgrQDYDYDXMP8881-65-50 06:42:00 Test Item Value Reference Range Interpretation Comments Albumin Lvl (test code = Albumin Lvl) 3.9 3.5-5.0 N [facility] HospitalVjznsrdXDMVECKEW8859-30-40 06:42:00 Test Item Value Reference Range Interpretation Comments Alk Phos (test code = Alk Phos) 47 39-136 N [facility] HospitalRekdkkdUETPFGBLI6846-16-26 06:42:00 Test Item Value Reference Range Interpretation Comments Total Protein (test code = Total 6.4 6.4-8.4 N Protein) [facility] HospitalTzyeucmKPYEBQBQN6415-68-98 06:42:00 Test Item Value Reference Range Interpretation Comments AST (test code = AST) 31 See_Comment N [Auto mated message] The system which ge nerated this result transmit abdelrahman reference range : <=37. The reference range was not used to interpr et this result as gurpreet l/abnormal. [facility] HospitalCfcvywvQAPTHORMM8286-46-57 06:42:00 Test Item Value Reference Range Interpretation Comments Calcium Lvl (test code = Calcium Lvl) 9.0 8.5-10.5 N [facility] HospitalEyimqflOZRGVWVPC9241-75-84 06:42:00 Test Item Value Reference Range Interpretation Comments Bili Total (test code = Bili Total) 0.4 0.2-1.3 N [facility] HospitalKjujvrxBXLKTIEDP3192-66-85 06:42:00 Test Item Value Reference Range Interpretation Comments Chloride Lvl (test code = Chloride Lvl) 104 95-109 N [facility] HospitalGrykxxpNLTEOWGZU9385-74-13 06:42:00 Test Item Value Reference Range Interpretation Comments CO2 (test code = CO2) 24 24-32 N [facility] HospitalGksiotzAKNEPCCRZ6350-56-26 06:42:00 Test Item Value Reference Range Interpretation Comments Sodium Lvl (test code = Sodium Lvl) 141 135-145 N [facility] HospitalQzsivusMMIOQWUHT4574-91-04 06:42:00 Test Item Value Reference Range Interpretation Comments Potassium Lvl (test code = Potassium 3.9 3.5-5.1 N Lvl) [facility] HospitalQqllnztEXJAFPTBF8201-39-60 06:42:00 Test Item Value Reference Range Interpretation Comments BUN (test code = BUN) 8 7-22 N [facility] HospitalBehsbzhDDXUNIYPN2670-75-81 06:42:00 Test Item Value Reference Range Interpretation Comments Creatinine Lvl (test code = Creatinine 1.0 0.5-1.4 N Lvl) [facility] [place]ressJigorniQHLAFUVHIK9538-29-27 06:42:00 Test Item Value Reference Range Interpretation Comments MCH (test code = MCH) 30.2 pg 27.0-31.0 N [facility] [place]ressYafnyesEIVQAQQYMZ2957-46-07 06:42:00 Test Item Value Reference Range Interpretation Comments Platelet (test code = Platelet) 134 133-450 N [facility] [place]ressFdfptraMGAPEMYVOM1716-50-53 06:42:00 Test Item Value Reference Range Interpretation Comments MPV (test code = MPV) 10.1 7.4-10.4 N [facility] [place]ressXrenymfYYZIWFPULS2798-84-57 06:42:00 Test Item Value Reference Range Interpretation Comments RDW (test code = RDW) 13.4 11.5-14.5 N [facility] [place]ressHptdvrgHEFNSCDMCL1569-97-91 06:42:00 Test Item Value Reference Range Interpretation Comments Hct (test code = Hct) 39.4 42.0-54.0 L [facility] [place]ressGnozlniBJVRHJVTXS2209-69-42 06:42:00 Test Item Value Reference Range Interpretation Comments MCV (test code = MCV) 89.5 80.0-94.0 N [facility] [place]ressNdgpxmoYXBQTBUJPD1778-27-72 06:42:00 Test Item Value Reference Range Interpretation Comments Hgb (test code = Hgb) 13.3 14.0-18.0 L [facility] [place]ressUbuitwdLGJCQHDQFT1548-79-84 06:42:00 Test Item Value Reference Range Interpretation Comments MCHC (test code = MCHC) 33.7 32.0-36.0 N [facility] [place]ressIugjvilGNBUXHMCZM7403-44-09 06:42:00 Test Item Value Reference Range Interpretation Comments WBC (test code = WBC) 12.5 3.7-10.4 H [facility] [place]ressZfkgmwrAOCQAOSYUA1845-09-42 06:42:00 Test Item Value Reference Range Interpretation Comments RBC (test code = RBC) 4.40 4.70-6.10 L [facility] [place]ressPahudbgVJSGVPGQAH8192-47-78 06:42:00 Test Item Value Reference Range Interpretation Comments Lymphocytes (test code = Lymphocytes) 9.4 20.0-40.0 L [facility] [place]ressOwfxgnjHAXMOHYQTC0743-07-52 06:42:00 Test Item Value Reference Range Interpretation Comments Monocytes (test code = Monocytes) 10.8 2.0-12.0 N [facility] CypressScawgvzVOYGLPJNRI3933-98-66 06:42:00 Test Item Value Reference Range Interpretation Comments Segs (test code = Segs) 79.6 45.0-75.0 H [facility] [place]ressXrppufwDYKQTBBRGL9123-31-79 06:42:00 Test Item Value Reference Range Interpretation Comments Eosinophils (test code = 0.1 See_Comment N [A utomated message] The Eosinophils) system which ge nerated this result tra nsmitted reference range : <=4.0. The reference r annemarie was not used to int erpret this result as normal/abnormal . [facility] [place]ressHkiuglrXEBBNYMCRL7677-57-81 06:42:00 Test Item Value Reference Range Interpretation Comments Basophils (test code = 0.1 See_Comment N [Aut omated message] The Basophils) system which ge nerated this result tra nsmitted reference range : <=1.0. The reference r annemarie was not used to int erpret this result as normal/abnormal . [facility] [place]ressYzqrsklNDJRXZLGHK1924-56-97 06:42:00 Test Item Value Reference Range Interpretation Comments Segs-Bands # (test code = Segs-Bands #) 9.9 1.5-8.1 H [facility] [place]ressVhhrlwgPMYHWJBJEM5748-49-01 06:42:00 Test Item Value Reference Range Interpretation Comments Lymphocytes # (test code = Lymphocytes 1.2 1.0-5.5 N #) [facility] [place]ressMcqdftlPXEZKVNGFA6949-09-76 06:42:00 Test Item Value Reference Range Interpretation Comments Monocytes # (test code 1.3 See_Comment H [Aut omated message] The = Monocytes #) system which generated this result tra nsmitted reference range : <=0.8. The reference r annemarie was not used to int erpret this result as normal/abnormal . [facility] HospitalLioaqqgKJTVOHJEO8348-49-23 09:00:49 Test Item Value Reference Range Interpretation Comments Lactic Acid Lvl (test code = Lactic 2.0 0.5-2.2 N Acid Lvl) [facility] HospitalJvotmzxBWVNNVGXA6654-08-27 09:00:49 Test Item Value Reference Range Interpretation Comments Lactic Acid Lvl (test code = Lactic 2.0 0.5-2.2 N Acid Lvl) [facility] HospitalWligaauVEHHFXDHF3442-74-03 09:00:49 Test Item Value Reference Range Interpretation Comments Lactic Acid Lvl (test code = Lactic 2.0 0.5-2.2 N Acid Lvl) [facility] HospitalHluvpkpYQPZXGETQ3761-71-61 09:00:49 Test Item Value Reference Range Interpretation Comments Lactic Acid Lvl (test code = Lactic 2.0 0.5-2.2 N Acid Lvl) [facility] HospitalJcjtsqeUZBPZJQVD9300-56-16 09:00:49 Test Item Value Reference Range Interpretation Comments Lactic Acid Lvl (test code = Lactic 2.0 0.5-2.2 N Acid Lvl) [facility] HospitalZiwifccKZBZGKPCZ0557-87-32 09:00:49 Test Item Value Reference Range Interpretation Comments Lactic Acid Lvl (test code = Lactic 2.0 0.5-2.2 N Acid Lvl) [facility] HospitalPjvpjdzDQDURDCNT7417-11-79 03:30:38 Test Item Value Reference Range Interpretation Comments UDS Note (test code = See Note 5(12/28/2012 N UDS Note) 22:30:38) [facility] HospitalSnivxfaXDYBZCBYP3055-76-23 03:30:38 Test Item Value Reference Range Interpretation Comments U Phencyc Scr (test Negative code = U Phencyc Scr) *NA*(12/28/2012 22:30:38) [facility] HospitalIjctahlUWDHNQEFQ5579-52-60 03:30:38 Test Item Value Reference Range Interpretation Comments U Opiate Scr (test Positive A code = U Opiate Scr) *ABN*(12/28/2012 22:30:38) [facility] HospitalAcugryxEYPOIDGCU7803-74-77 03:30:38 Test Item Value Reference Range Interpretation Comments U Cannab Scr (test Negative code = U Cannab Scr) *NA*(12/28/2012 22:30:38) [facility] HospitalBhonzwaUOSIBOBPE4095-04-48 03:30:38 Test Item Value Reference Range Interpretation Comments U Benzodia Scr (test Negative code = U Benzodia Scr) *NA*(12/28/2012 22:30:38) [facility] HospitalAfoipxoYYSAADWCS8878-21-34 03:30:38 Test Item Value Reference Range Interpretation Comments U Odalys Scr (test code Negative *NA*(12/28/2012 = U Odalys Scr) 22:30:38) [facility] HospitalLgkozryMGSPHPYJR8662-97-42 03:30:38 Test Item Value Reference Range Interpretation Comments U Amph Scr (test code Negative *NA*(12/28/2012 = U Amph Scr) 22:30:38) [facility] HospitalFyekucsFKCFKIYQE5442-21-28 03:30:38 Test Item Value Reference Range Interpretation Comments U Cocaine Scr (test Negative code = U Cocaine Scr) *NA*(12/28/2012 22:30:38) [facility]ObabnidVJUZDBOEGW6009-03-28 03:30:38 Test Item Value Reference Range Interpretation Comments UA Ketones (test code Negative mg/dL = UA Ketones) *NA*(12/28/2012 22:30:38) [facility] [place]entonCycgghcXFVHMFAHFS5018-17-14 03:30:38 Test Item Value Reference Range Interpretation Comments UA Bili (test code = Negative *NA*(12/28/2012 UA Bili) 22:30:38) [facility]entonHyeispeXPMLBZJHRH9348-19-17 03:30:38 Test Item Value Reference Range Interpretation Comments UA Nitrite (test code Negative (12/28/2012 N = UA Nitrite) 22:30:38) [facility]entonVgndqhfYEZBXYTMYJ2550-84-20 03:30:38 Test Item Value Reference Range Interpretation Comments UA Urobilinogen (test code = UA 0.2 0.1-1.0 N Urobilinogen) [facility]QbwcdmbYFVRUQPPQO2159-82-55 03:30:38 Test Item Value Reference Range Interpretation Comments UA Blood (test code = Negative (12/28/2012 N UA Blood) 22:30:38) [facility]entonNbatraiWASKWDGMWL5040-31-51 03:30:38 Test Item Value Reference Range Interpretation Comments UA Leuk Est (test Negative (12/28/2012 N code = UA Leuk Est) 22:30:38) [facility] HospitalHkyjiecWSRTPEJKSU5125-91-71 03:30:38 Test Item Value Reference Range Interpretation Comments UA pH (test code = UA pH) 7.0 1 5.0-8.[address] [facility] HospitalOnvtavmJVZMTVKWGY4761-24-28 03:30:38 Test Item Value Reference Range Interpretation Comments UA Glucose (test code Negative mg/dL N = UA Glucose) (12/28/2012 22:30:38) [facility] DentonUlgnohzFATAHKCDPU2844-31-66 03:30:38 Test Item Value Reference Range Interpretation Comments UA Spec Grav (test code = UA Spec 1.010 1 N Grav) [facility] DentonLyukoyiMNYHXKDFNR1888-28-02 03:30:38 Test Item Value Reference Range Interpretation Comments UA Protein (test code Negative mg/dL N = UA Protein) (12/28/2012 22:30:38) [facility] DentonZcdvjmdXECOZFRUGE5145-49-50 03:30:38 Test Item Value Reference Range Interpretation Comments UA Turbidity (test code = Clear (12/28/2012 N UA Turbidity) 22:30:38) [facility] DentonTygvketJFBESGPFLT1771-07-38 03:30:38 Test Item Value Reference Range Interpretation Comments UA Color (test code = Yellow *NA*(12/28/2012 UA Color) 22:30:38) [facility] HospitalMtmohlnDVYUSIIWO8216-67-35 03:30:38 Test Item Value Reference Range Interpretation Comments UDS Note (test code = See Note 5(12/28/2012 N UDS Note) 22:30:38) [facility] HospitalIodxmnbAATGQTCYY1288-78-01 03:30:38 Test Item Value Reference Range Interpretation Comments U Phencyc Scr (test Negative code = U Phencyc Scr) *NA*(12/28/2012 22:30:38) [facility] HospitalNkywyduXXMLZWLDD6738-78-30 03:30:38 Test Item Value Reference Range Interpretation Comments U Opiate Scr (test Positive A code = U Opiate Scr) *ABN*(12/28/2012 22:30:38) [facility] HospitalMzicwqvRTCMWICAW1996-10-08 03:30:38 Test Item Value Reference Range Interpretation Comments U Cannab Scr (test Negative code = U Cannab Scr) *NA*(12/28/2012 22:30:38) [facility] HospitalMzqqxwlAPURLFUKA6360-05-83 03:30:38 Test Item Value Reference Range Interpretation Comments U Benzodia Scr (test Negative code = U Benzodia Scr) *NA*(12/28/2012 22:30:38) [facility] HospitalXiyphgpFIXXNUSHA8783-64-20 03:30:38 Test Item Value Reference Range Interpretation Comments U Odalys Scr (test code Negative *NA*(12/28/2012 = U Odalys Scr) 22:30:38) [facility] HospitalCpcwgwkFWJQERWWB3385-01-58 03:30:38 Test Item Value Reference Range Interpretation Comments U Amph Scr (test code Negative *NA*(12/28/2012 = U Amph Scr) 22:30:38) [facility] HospitalHblmsbmFDTKIAORK9034-39-68 03:30:38 Test Item Value Reference Range Interpretation Comments U Cocaine Scr (test Negative code = U Cocaine Scr) *NA*(12/28/2012 22:30:38) [facility] DentonAkxheunGIRUURJWRA1804-85-04 03:30:38 Test Item Value Reference Range Interpretation Comments UA Ketones (test code Negative mg/dL = UA Ketones) *NA*(12/28/2012 22:30:38) [facility] DentonZvxbqnxEPNYMAYIAF5177-01-08 03:30:38 Test Item Value Reference Range Interpretation Comments UA Bili (test code = Negative *NA*(12/28/2012 UA Bili) 22:30:38) [facility] DentonPnziiwoDUBRFSNBCV6572-10-11 03:30:38 Test Item Value Reference Range Interpretation Comments UA Nitrite (test code Negative (12/28/2012 N = UA Nitrite) 22:30:38) [facility] DentonTbkodmvKNJEJZTDDI5695-95-30 03:30:38 Test Item Value Reference Range Interpretation Comments UA Urobilinogen (test code = UA 0.2 0.1-1.0 N Urobilinogen) [facility] DentonZorrjntALLQRHRJOO4186-12-30 03:30:38 Test Item Value Reference Range Interpretation Comments UA Blood (test code = Negative (12/28/2012 N UA Blood) 22:30:38) [facility]entonWuuzdjaKNUKUEDLYA3471-04-45 03:30:38 Test Item Value Reference Range Interpretation Comments UA Leuk Est (test Negative (12/28/2012 N code = UA Leuk Est) 22:30:38) [facility] DentonBotyactMJETENESTZ5112-75-52 03:30:38 Test Item Value Reference Range Interpretation Comments UA pH (test code = UA pH) 7.0 1 5.0-8.0 N [facility] DentonWwpsktoWJWGGNZOTR2828-08-10 03:30:38 Test Item Value Reference Range Interpretation Comments UA Glucose (test code Negative mg/dL N = UA Glucose) (12/28/2012 22:30:38) [facility] DentonZjzqtmyWYHHZZNAUJ7444-51-21 03:30:38 Test Item Value Reference Range Interpretation Comments UA Spec Grav (test code = UA Spec 1.010 1 N Grav) [facility] DentonNbaxvayBKZWTEJBLV0044-78-62 03:30:38 Test Item Value Reference Range Interpretation Comments UA Protein (test code Negative mg/dL N = UA Protein) (12/28/2012 22:30:38) [facility] DentonAbkdiepMDUSFRDSIT7905-82-74 03:30:38 Test Item Value Reference Range Interpretation Comments UA Turbidity (test code = Clear (12/28/2012 N UA Turbidity) 22:30:38) [facility] DentonDtqdgxgPLEOCEQARD0926-98-94 03:30:38 Test Item Value Reference Range Interpretation Comments UA Color (test code = Yellow *NA*(12/28/2012 UA Color) 22:30:38) [facility]WatwxqaSRWCZNAFW7108-44-18 03:30:38 Test Item Value Reference Range Interpretation Comments UDS Note (test code = See Note 5(12/28/2012 N UDS Note) 22:30:38) [facility] HospitalOhhvyokKGWUFQMUX9177-69-49 03:30:38 Test Item Value Reference Range Interpretation Comments U Phencyc Scr (test Negative code = U Phencyc Scr) *NA*(12/28/2012 22:30:38) [facility] HospitalVhrgqquSCSWDVKPH4618-79-55 03:30:38 Test Item Value Reference Range Interpretation Comments U Opiate Scr (test Positive A code = U Opiate Scr) *ABN*(12/28/2012 22:30:38) [facility] HospitalUmeqnixUDXLMUANJ2707-15-74 03:30:38 Test Item Value Reference Range Interpretation Comments U Cannab Scr (test Negative code = U Cannab Scr) *NA*(12/28/2012 22:30:38) [facility] HospitalXspwitcKJHMYJFYI7761-35-91 03:30:38 Test Item Value Reference Range Interpretation Comments U Benzodia Scr (test Negative code = U Benzodia Scr) *NA*(12/28/2012 22:30:38) [facility] HospitalOljxwtpCXSUITHCF9838-99-84 03:30:38 Test Item Value Reference Range Interpretation Comments U Odalys Scr (test code Negative *NA*(12/28/2012 = U Odalys Scr) 22:30:38) [facility] HospitalAvbmashWCGZKBEPY3138-31-13 03:30:38 Test Item Value Reference Range Interpretation Comments U Amph Scr (test code Negative *NA*(12/28/2012 = U Amph Scr) 22:30:38) [facility] HospitalBrqttapKFTISRNHY3372-46-51 03:30:38 Test Item Value Reference Range Interpretation Comments U Cocaine Scr (test Negative code = U Cocaine Scr) *NA*(12/28/2012 22:30:38) [facility] DentonRlloyexWECYBANHUN0092-86-49 03:30:38 Test Item Value Reference Range Interpretation Comments UA Ketones (test code Negative mg/dL = UA Ketones) *NA*(12/28/2012 22:30:38) [facility] HospitalDarvcfcLXIVMMLEQR3360-78-60 03:30:38 Test Item Value Reference Range Interpretation Comments UA Bili (test code = Negative *NA*(12/28/2012 UA Bili) 22:30:38) [facility] HospitalNprpcppIGPTMTHRGD8574-65-13 03:30:38 Test Item Value Reference Range Interpretation Comments UA Nitrite (test code Negative (12/28/2012 N = UA Nitrite) 22:30:38) [facility] HospitalGsydffbZUXPKFBYQG7663-03-54 03:30:38 Test Item Value Reference Range Interpretation Comments UA Urobilinogen (test code = UA 0.2 0.1-1.0 N Urobilinogen) [facility] DentonFskumcjZBMAHTRAGU0749-62-92 03:30:38 Test Item Value Reference Range Interpretation Comments UA Blood (test code = Negative (12/28/2012 N UA Blood) 22:30:38) [facility] DentonPehxnuwBOMSGLZDMO9080-26-00 03:30:38 Test Item Value Reference Range Interpretation Comments UA Leuk Est (test Negative (12/28/2012 N code = UA Leuk Est) 22:30:38) [facility]entonFsphzaaQFDUCXTBYI2675-93-99 03:30:38 Test Item Value Reference Range Interpretation Comments UA pH (test code = UA pH) 7.0 1 5.0-8.0 N [facility] DentonNvlspsoMBHYJAJLXG8844-11-42 03:30:38 Test Item Value Reference Range Interpretation Comments UA Glucose (test code Negative mg/dL N = UA Glucose) (12/28/2012 22:30:38) [facility] DentonGjtkqwxSNMQJBLRVT8050-40-91 03:30:38 Test Item Value Reference Range Interpretation Comments UA Spec Grav (test code = UA Spec 1.010 1 N Grav) [facility] DentonYekqcwiRNJDPRIAKM4874-04-48 03:30:38 Test Item Value Reference Range Interpretation Comments UA Protein (test code Negative mg/dL N = UA Protein) (12/28/2012 22:30:38) [facility] DentonMxpytzoHYMCWDHNXD9083-64-74 03:30:38 Test Item Value Reference Range Interpretation Comments UA Turbidity (test code = Clear (12/28/2012 N UA Turbidity) 22:30:38) [facility] DentonHbfzlajRLADHMPNIQ5831-91-41 03:30:38 Test Item Value Reference Range Interpretation Comments UA Color (test code = Yellow *NA*(12/28/2012 UA Color) 22:30:38) [facility] HospitalQjelkqcQFOUAYDIQ9673-82-82 03:30:38 Test Item Value Reference Range Interpretation Comments UDS Note (test code = See Note 5(12/28/2012 N UDS Note) 22:30:38) [facility] HospitalMxqzydvOTIACPARD4592-33-72 03:30:38 Test Item Value Reference Range Interpretation Comments U Phencyc Scr (test Negative code = U Phencyc Scr) *NA*(12/28/2012 22:30:38) [facility] HospitalZcoplopMQCPLBJOG5388-56-42 03:30:38 Test Item Value Reference Range Interpretation Comments U Opiate Scr (test Positive A code = U Opiate Scr) *ABN*(12/28/2012 22:30:38) [facility] HospitalDocvnpjSQWETIFLV9280-46-51 03:30:38 Test Item Value Reference Range Interpretation Comments U Cannab Scr (test Negative code = U Cannab Scr) *NA*(12/28/2012 22:30:38) [facility] HospitalWzwcsaoUSLXPNTHW7278-98-67 03:30:38 Test Item Value Reference Range Interpretation Comments U Benzodia Scr (test Negative code = U Benzodia Scr) *NA*(12/28/2012 22:30:38) [facility] HospitalXxcgbvkUFEIKRIUO1315-90-23 03:30:38 Test Item Value Reference Range Interpretation Comments U Odalys Scr (test code Negative *NA*(12/28/2012 = U Odalys Scr) 22:30:38) [facility] HospitalRqgseypYHGFAJFYM7521-19-63 03:30:38 Test Item Value Reference Range Interpretation Comments U Amph Scr (test code Negative *NA*(12/28/2012 = U Amph Scr) 22:30:38) [facility] HospitalRnarpmzPKNCTVNFP4049-26-59 03:30:38 Test Item Value Reference Range Interpretation Comments U Cocaine Scr (test Negative code = U Cocaine Scr) *NA*(12/28/2012 22:30:38) [facility]entonThpuivvIGCJLYNDZH4238-50-15 03:30:38 Test Item Value Reference Range Interpretation Comments UA Ketones (test code Negative mg/dL = UA Ketones) *NA*(12/28/2012 22:30:38) [facility] DentonJpxwodxFATDKOZBSO5481-91-46 03:30:38 Test Item Value Reference Range Interpretation Comments UA Bili (test code = Negative *NA*(12/28/2012 UA Bili) 22:30:38) [facility] HospitalZczchjoYUYGFUJIDB7750-13-12 03:30:38 Test Item Value Reference Range Interpretation Comments UA Nitrite (test code Negative (12/28/2012 N = UA Nitrite) 22:30:38) [facility] HospitalBkdgebwVBHZRXMPEA1561-07-40 03:30:38 Test Item Value Reference Range Interpretation Comments UA Urobilinogen (test code = UA 0.2 0.1-1.0 N Urobilinogen) [facility] HospitalBvwjylzBVMRANSEJS7267-06-55 03:30:38 Test Item Value Reference Range Interpretation Comments UA Blood (test code = Negative (12/28/2012 N UA Blood) 22:30:38) [facility] DentonTroctebZMFCELQUMM9114-14-36 03:30:38 Test Item Value Reference Range Interpretation Comments UA Leuk Est (test Negative (12/28/2012 N code = UA Leuk Est) 22:30:38) [facility] DentonTtpykpsQEDDJZHHVD8167-94-54 03:30:38 Test Item Value Reference Range Interpretation Comments UA pH (test code = UA pH) 7.0 1 5.0-8.0 N [facility]entonPxdxoflDDVVJPNQXX1462-00-82 03:30:38 Test Item Value Reference Range Interpretation Comments UA Glucose (test code Negative mg/dL N = UA Glucose) (12/28/2012 22:30:38) [facility]entonHetbrbkQCOUKDNTTL9628-57-36 03:30:38 Test Item Value Reference Range Interpretation Comments UA Spec Grav (test code = UA Spec 1.010 1 N Grav) [facility] DentonIcztmxfHPRQBAQIXL9557-12-27 03:30:38 Test Item Value Reference Range Interpretation Comments UA Protein (test code Negative mg/dL N = UA Protein) (12/28/2012 22:30:38) [facility] DentonEaaryaoMROFROOKVK9044-40-55 03:30:38 Test Item Value Reference Range Interpretation Comments UA Turbidity (test code = Clear (12/28/2012 N UA Turbidity) 22:30:38) [facility] DentonCuglwlfBBZCQSETAY3744-59-71 03:30:38 Test Item Value Reference Range Interpretation Comments UA Color (test code = Yellow *NA*(12/28/2012 UA Color) 22:30:38) [facility] HospitalAgjzcuoBSSOPXUQB3227-48-19 03:30:38 Test Item Value Reference Range Interpretation Comments UDS Note (test code = See Note 5(12/28/2012 N UDS Note) 22:30:38) [facility] HospitalPwkbedfBCSUBUTCG1754-81-64 03:30:38 Test Item Value Reference Range Interpretation Comments U Phencyc Scr (test Negative code = U Phencyc Scr) *NA*(12/28/2012 22:30:38) [facility] HospitalGwurpxoSQWCXKDZN6939-16-10 03:30:38 Test Item Value Reference Range Interpretation Comments U Opiate Scr (test Positive A code = U Opiate Scr) *ABN*(12/28/2012 22:30:38) [facility] HospitalOmstfpxZBVZYQRRG1898-28-14 03:30:38 Test Item Value Reference Range Interpretation Comments U Cannab Scr (test Negative code = U Cannab Scr) *NA*(12/28/2012 22:30:38) [facility] HospitalDlozxaxMDUBKGHVU3290-11-88 03:30:38 Test Item Value Reference Range Interpretation Comments U Benzodia Scr (test Negative code = U Benzodia Scr) *NA*(12/28/2012 22:30:38) [facility] HospitalZcoleoqEFGHEYKQP5813-92-58 03:30:38 Test Item Value Reference Range Interpretation Comments U Odalys Scr (test code Negative *NA*(12/28/2012 = U Odlays Scr) 22:30:38) [facility] HospitalBggntioTAKEIJNCP3763-66-31 03:30:38 Test Item Value Reference Range Interpretation Comments U Amph Scr (test code Negative *NA*(12/28/2012 = U Amph Scr) 22:30:38) [facility] HospitalPuxswkuSTNXGPTYJ8713-24-77 03:30:38 Test Item Value Reference Range Interpretation Comments U Cocaine Scr (test Negative code = U Cocaine Scr) *NA*(12/28/2012 22:30:38) [facility]entonNdvvwzfJMHZYZUSWL5954-41-91 03:30:38 Test Item Value Reference Range Interpretation Comments UA Ketones (test code Negative mg/dL = UA Ketones) *NA*(12/28/2012 22:30:38) [facility] DentonIhzqlnlUKSYDFSVWO8769-08-53 03:30:38 Test Item Value Reference Range Interpretation Comments UA Bili (test code = Negative *NA*(12/28/2012 UA Bili) 22:30:38) [facility] TexasRdlsiueLYNBQTHPKG4850-73-89 03:30:38 Test Item Value Reference Range Interpretation Comments UA Nitrite (test code Negative (12/28/2012 N = UA Nitrite) 22:30:38) [facility] HospitalSvsedocSQAFIUSWKP4752-62-20 03:30:38 Test Item Value Reference Range Interpretation Comments UA Urobilinogen (test code = UA 0.2 0.1-1.0 N Urobilinogen) [facility] HospitalCqgwfgjBLLDJMNINU5531-19-90 03:30:38 Test Item Value Reference Range Interpretation Comments UA Blood (test code = Negative (12/28/2012 N UA Blood) 22:30:38) [facility] DentonSuabuwqHGAONLIGVO1507-48-26 03:30:38 Test Item Value Reference Range Interpretation Comments UA Leuk Est (test Negative (12/28/2012 N code = UA Leuk Est) 22:30:38) [facility] DentonMovlmecNRBLRDSYGE8361-58-88 03:30:38 Test Item Value Reference Range Interpretation Comments UA pH (test code = UA pH) 7.0 1 5.0-8.0 N [facility] DentonPqbhaflSZYNSNCRJH2672-72-76 03:30:38 Test Item Value Reference Range Interpretation Comments UA Glucose (test code Negative mg/dL N = UA Glucose) (12/28/2012 22:30:38) [facility] DentonUfburkuCSTTUPEVYO4052-63-06 03:30:38 Test Item Value Reference Range Interpretation Comments UA Spec Grav (test code = UA Spec 1.010 1 N Grav) [facility]entonEaoywvbYGJNUDSTIZ2164-88-69 03:30:38 Test Item Value Reference Range Interpretation Comments UA Protein (test code Negative mg/dL N = UA Protein) (12/28/2012 22:30:38) [facility] DentonHkqxvtvCNPJMASIVB6700-01-89 03:30:38 Test Item Value Reference Range Interpretation Comments UA Turbidity (test code = Clear (12/28/2012 N UA Turbidity) 22:30:38) [facility] DentonCetxnofDBEFBCMJWD1926-13-76 03:30:38 Test Item Value Reference Range Interpretation Comments UA Color (test code = Yellow *NA*(12/28/2012 UA Color) 22:30:38) [facility] HospitalCpjztheVSGFTYLFV1046-27-25 03:30:38 Test Item Value Reference Range Interpretation Comments UDS Note (test code = See Note 5(12/28/2012 N UDS Note) 22:30:38) [facility] HospitalApaevjrYLVTPCMIV3727-95-88 03:30:38 Test Item Value Reference Range Interpretation Comments U Phencyc Scr (test Negative code = U Phencyc Scr) *NA*(12/28/2012 22:30:38) [facility] HospitalAqoehsqYLZKKZMLO9912-53-52 03:30:38 Test Item Value Reference Range Interpretation Comments U Opiate Scr (test Positive A code = U Opiate Scr) *ABN*(12/28/2012 22:30:38) [facility] HospitalUrzejhwKWGONBIRL7805-35-99 03:30:38 Test Item Value Reference Range Interpretation Comments U Cannab Scr (test Negative code = U Cannab Scr) *NA*(12/28/2012 22:30:38) [facility] HospitalKkvtwdxZFQDONPRX6826-80-53 03:30:38 Test Item Value Reference Range Interpretation Comments U Benzodia Scr (test Negative code = U Benzodia Scr) *NA*(12/28/2012 22:30:38) [facility] HospitalVgwzzisQYUTAXTRK0715-16-31 03:30:38 Test Item Value Reference Range Interpretation Comments U Odalys Scr (test code Negative *NA*(12/28/2012 = U Odalys Scr) 22:30:38) [facility] HospitalEdbanvpWGDYPEEXJ0362-48-34 03:30:38 Test Item Value Reference Range Interpretation Comments U Amph Scr (test code Negative *NA*(12/28/2012 = U Amph Scr) 22:30:38) [facility] HospitalZqmpcoiLXOLBQKIQ2855-49-11 03:30:38 Test Item Value Reference Range Interpretation Comments U Cocaine Scr (test Negative code = U Cocaine Scr) *NA*(12/28/2012 22:30:38) [facility] DentonLbkgynjMRNGXCKNAD4223-27-01 03:30:38 Test Item Value Reference Range Interpretation Comments UA Ketones (test code Negative mg/dL = UA Ketones) *NA*(12/28/2012 22:30:38) [facility] DentonMfdoswzCFIANNCKIQ3474-12-97 03:30:38 Test Item Value Reference Range Interpretation Comments UA Bili (test code = Negative *NA*(12/28/2012 UA Bili) 22:30:38) [facility] TexasPobviltILGIOTVQNA8178-26-63 03:30:38 Test Item Value Reference Range Interpretation Comments UA Nitrite (test code Negative (12/28/2012 N = UA Nitrite) 22:30:38) [facility] HospitalHkzikqiSPDJZXFHSL5163-16-59 03:30:38 Test Item Value Reference Range Interpretation Comments UA Urobilinogen (test code = UA 0.2 0.1-1.0 N Urobilinogen) [facility] HospitalPrrgmwjICIFBCOCWC6143-36-39 03:30:38 Test Item Value Reference Range Interpretation Comments UA Blood (test code = Negative (12/28/2012 N UA Blood) 22:30:38) [facility] HospitalNlxpalvSWDRRFPDQD0038-98-70 03:30:38 Test Item Value Reference Range Interpretation Comments UA Leuk Est (test Negative (12/28/2012 N code = UA Leuk Est) 22:30:38) [facility] HospitalKfkmkfkKYRAAWHOVX5813-15-62 03:30:38 Test Item Value Reference Range Interpretation Comments UA pH (test code = UA pH) 7.0 1 5.0-8.[address] [facility] HospitalVfewexmFPUGTTJUIN4775-60-08 03:30:38 Test Item Value Reference Range Interpretation Comments UA Glucose (test code Negative mg/dL N = UA Glucose) (12/28/2012 22:30:38) [facility] DentonRfxtsemYXYUSDOVBV6220-03-62 03:30:38 Test Item Value Reference Range Interpretation Comments UA Spec Grav (test code = UA Spec 1.010 1 N Grav) [facility]entonBkfflcaYVOFYVAJGZ8078-92-52 03:30:38 Test Item Value Reference Range Interpretation Comments UA Protein (test code Negative mg/dL N = UA Protein) (12/28/2012 22:30:38) [facility] DentonNxnhwfpRATBBZUBPO0860-30-44 03:30:38 Test Item Value Reference Range Interpretation Comments UA Turbidity (test code = Clear (12/28/2012 N UA Turbidity) 22:30:38) [facility] DentonNpvsebsTSYAONBGNC5771-33-58 03:30:38 Test Item Value Reference Range Interpretation Comments UA Color (test code = Yellow *NA*(12/28/2012 UA Color) 22:30:38) [facility] DentonHkannuqUODQJVCIWA9648-21-08 03:30:21 Test Item Value Reference Range Interpretation Comments UA Bacteria (test code = None Seen (12/28/2012 N UA Bacteria) 22:30:21) [facility] DentonZwfqesmUXDEVPJNSC9091-58-70 03:30:21 Test Item Value Reference Range Interpretation Comments Micro? (test code = Performed (12/28/2012 N Micro?) 22:30:21) [facility] DentonWtizsmdIVLWVVPKAR6860-38-18 03:30:21 Test Item Value Reference Range Interpretation Comments UA Sq Epi (test code = None Seen (12/28/2012 N UA Sq Epi) 22:30:21) [facility] HospitalHpprsqvWYCOKPNHUU9299-27-31 03:30:21 Test Item Value Reference Range Interpretation Comments UA WBC (test code = UA 0-2 /HPF (12/28/2012 N WBC) 22:30:21) [facility]YvyienlMVBNXONIHD2380-69-38 03:30:21 Test Item Value Reference Range Interpretation Comments UA RBC (test None Seen See_Comment N [Automated mes olga] code = UA RBC) (12/28/2012 The system [facility] 22:30:21) generated this result transmitted ref erence range: <=2. The reference range was not used to int erpret this result as normal/abnormal . [facility] HospitalEovnegsWJBXQYMTYT9528-19-46 03:30:21 Test Item Value Reference Range Interpretation Comments UA Bacteria (test code = None Seen (12/28/2012 N UA Bacteria) 22:30:21) [facility] HospitalQorsmufMGHJPXOPGJ0204-53-45 03:30:21 Test Item Value Reference Range Interpretation Comments Micro? (test code = Performed (12/28/2012 N Micro?) 22:30:21) [facility] HospitalDaaoqziIJTMGAGBYL1931-86-75 03:30:21 Test Item Value Reference Range Interpretation Comments UA Sq Epi (test code = None Seen (12/28/2012 N UA Sq Epi) 22:30:21) [facility] HospitalItkroawBDRJJPZEKT0116-55-61 03:30:21 Test Item Value Reference Range Interpretation Comments UA WBC (test code = UA 0-2 /HPF (12/28/2012 N WBC) 22:30:21) [facility] HospitalRbcrbmpRQTVZZWAYO4820-40-51 03:30:21 Test Item Value Reference Range Interpretation Comments UA RBC (test None Seen See_Comment N [Automated mes olga] code = UA RBC) (12/28/2012 The system ich 22:30:21) generated this result transmitted ref erence range: <=2. The reference range was not used to int erpret this result as normal/abnormal . [facility] HospitalKkkgvggVYPNNTXGMX7116-61-08 03:30:21 Test Item Value Reference Range Interpretation Comments UA Bacteria (test code = None Seen (12/28/2012 N UA Bacteria) 22:30:21) [facility] HospitalAzfmffmSHLOGXPSUH2930-54-63 03:30:21 Test Item Value Reference Range Interpretation Comments Micro? (test code = Performed (12/28/2012 N Micro?) 22:30:21) [facility] HospitalZadfgbmSOHZWMHMPA5247-08-83 03:30:21 Test Item Value Reference Range Interpretation Comments UA Sq Epi (test code = None Seen (12/28/2012 N UA Sq Epi) 22:30:21) [facility] HospitalFexwlyhADPUVJZOOE4022-47-65 03:30:21 Test Item Value Reference Range Interpretation Comments UA WBC (test code = UA 0-2 /HPF (12/28/2012 N WBC) 22:30:21) [facility] HospitalLgoxjxdJJWSIEUGQD3124-42-26 03:30:21 Test Item Value Reference Range Interpretation Comments UA RBC (test None Seen See_Comment N [Automated mes olga] code = UA RBC) (12/28/2012 The system ich 22:30:21) generated this result transmitted ref erence range: <=2. The reference range was not used to int erpret this result as normal/abnormal . [facility] HospitalSnraetvDDEIBBFOIM9456-91-63 03:30:21 Test Item Value Reference Range Interpretation Comments UA Bacteria (test code = None Seen (12/28/2012 N UA Bacteria) 22:30:21) [facility] HospitalVqxwotuNBIIQZJJFI0163-46-87 03:30:21 Test Item Value Reference Range Interpretation Comments Micro? (test code = Performed (12/28/2012 N Micro?) 22:30:21) [facility] HospitalGbgzforQRMEMRGSSV1953-07-32 03:30:21 Test Item Value Reference Range Interpretation Comments UA Sq Epi (test code = None Seen (12/28/2012 N UA Sq Epi) 22:30:21) [facility] HospitalIscjrwzNQMFMBSEWI9276-45-59 03:30:21 Test Item Value Reference Range Interpretation Comments UA WBC (test code = UA 0-2 /HPF (12/28/2012 N WBC) 22:30:21) [facility] TexasOomncmvGYJJOWCGQA7573-96-20 03:30:21 Test Item Value Reference Range Interpretation Comments UA RBC (test None Seen See_Comment N [Automated mes olga] code = UA RBC) (12/28/2012 The system ich 22:30:21) generated this result transmitted ref erence range: <=2. The reference range was not used to int erpret this result as normal/abnormal . [facility] HospitalUigsbywFEMOXKGZYC8451-17-70 03:30:21 Test Item Value Reference Range Interpretation Comments UA Bacteria (test code = None Seen (12/28/2012 N UA Bacteria) 22:30:21) [facility] HospitalLhxeztkKTCJXBQVKE8748-53-18 03:30:21 Test Item Value Reference Range Interpretation Comments Micro? (test code = Performed (12/28/2012 N Micro?) 22:30:21) [facility] TexasKvuqcanQFSPVVRQWN9186-68-63 03:30:21 Test Item Value Reference Range Interpretation Comments UA Sq Epi (test code = None Seen (12/28/2012 N UA Sq Epi) 22:30:21) [facility] HospitalYuzqgyvXDZWTGZHQE3992-55-42 03:30:21 Test Item Value Reference Range Interpretation Comments UA WBC (test code = UA 0-2 /HPF (12/28/2012 N WBC) 22:30:21) [facility] TexasSyegniyYAKQKWYQJN3873-83-37 03:30:21 Test Item Value Reference Range Interpretation Comments UA RBC (test None Seen See_Comment N [Automated mes olga] code = UA RBC) (12/28/2012 The system [facility] 22:30:21) generated this result transmitted ref erence range: <=2. The reference range was not used to int erpret this result as normal/abnormal . [facility] HospitalYunzhpiZQGRBQOHVU2651-24-66 03:30:21 Test Item Value Reference Range Interpretation Comments UA Bacteria (test code = None Seen (12/28/2012 N UA Bacteria) 22:30:21) [facility] HospitalFrnhqbeCCLUCWDGFG2085-45-14 03:30:21 Test Item Value Reference Range Interpretation Comments Micro? (test code = Performed (12/28/2012 N Micro?) 22:30:21) [facility] TexasIznuciyWZNQXWZPTE0098-25-58 03:30:21 Test Item Value Reference Range Interpretation Comments UA Sq Epi (test code = None Seen (12/28/2012 N UA Sq Epi) 22:30:21) [facility] TexasEareatdPEEAPIZCZG1148-81-30 03:30:21 Test Item Value Reference Range Interpretation Comments UA WBC (test code = UA 0-2 /HPF (12/28/2012 N WBC) 22:30:21) [facility]SfuugzrYGTRBLVBJW8854-35-04 03:30:21 Test Item Value Reference Range Interpretation Comments UA RBC (test None Seen See_Comment N [Automated mes olga] code = UA RBC) (12/28/2012 The system wh ich 22:30:21) generated this result transmitted ref erence range: <=2. The reference range was not used to int erpret this result as normal/abnormal . [facility] [employer] [id number] 02:00:00 Test Item Value Reference Range Interpretation Comments ABO/Rh (test code = ABO/Rh) B NEG [facility] [employer] [id number] 02:00:00 Test Item Value Reference Range Interpretation Comments Antibody Scrn (test Negative (12/28/2012 N code = Antibody Scrn) 21:00:00) [employer] [id number] 02:00:00 Test Item Value Reference Range Interpretation Comments ABO/Rh (test code = ABO/Rh) B NEG [employer] [id number] 02:00:00 Test Item Value Reference Range Interpretation Comments Antibody Scrn (test Negative (12/28/2012 N code = Antibody Scrn) 21:00:00) [employer] [id number] 02:00:00 Test Item Value Reference Range Interpretation Comments ABO/Rh (test code = ABO/Rh) B NEG [employer] [id number] 02:00:00 Test Item Value Reference Range Interpretation Comments Antibody Scrn (test Negative (12/28/2012 N code = Antibody Scrn) 21:00:00) [employer] [id number] 02:00:00 Test Item Value Reference Range Interpretation Comments ABO/Rh (test code = ABO/Rh) B NEG [employer] [id number] 02:00:00 Test Item Value Reference Range Interpretation Comments Antibody Scrn (test Negative (12/28/2012 N code = Antibody Scrn) 21:00:00) [employer] [id number] 02:00:00 Test Item Value Reference Range Interpretation Comments ABO/Rh (test code = ABO/Rh) B NEG [employer] [id number] 02:00:00 Test Item Value Reference Range Interpretation Comments Antibody Scrn (test Negative (12/28/2012 N code = Antibody Scrn) 21:00:00) [employer] [id number] 02:00:00 Test Item Value Reference Range Interpretation Comments ABO/Rh (test code = ABO/Rh) B NEG [facility] [employer] [facility] [id number] 02:00:00 Test Item Value Reference Range Interpretation Comments Antibody Scrn (test Negative (12/28/2012 N code = Antibody Scrn) 21:00:00) [facility]as[facility]KOYLLUCP6195[facility]42-69 01:56:00 Test Item Value Reference Range Interpretation Comments O2 Sat Frankie (test code = O2 Sat Frankie) 84.6 40.0-70.0 H [facility] HospitalYneaguvSQGRJVWWN3920-70-14 01:56:00 Test Item Value Reference Range Interpretation Comments Temp Frankie (test code = Temp Frankie) 37.0 [facility] HospitalPbastkyUMQVFGEJR8406-79-50 01:56:00 Test Item Value Reference Range Interpretation Comments BE Frankie (test code = -4 See_Comment L [Automa abdelrahman message] The BE Frankie) system which ge nerated this result transmit abdelrahman reference range : <=2. The reference range was not used to interpr et this result as gurpreet l/abnormal. [facility] HospitalRfpbygzPFTFBWWTF3231-01-05 01:56:00 Test Item Value Reference Range Interpretation Comments HCO3 Frankie (test code = HCO3 Frankie) 20 22-26 L [facility] HospitalOivqindFRJRDPRHQ1898-69-60 01:56:00 Test Item Value Reference Range Interpretation Comments pO2 Frankie (test code = pO2 Frankie) 49 20-49 N [facility] HospitalFxomcfgULXHVDXTP6721-09-58 01:56:00 Test Item Value Reference Range Interpretation Comments pH Frankie (test code = pH Frankie) 7.41 7.28-7.42 N [facility] HospitalYyjahkaWLEOYZPTU4449-55-77 01:56:00 Test Item Value Reference Range Interpretation Comments pCO2 Frankie (test code = pCO2 Frankie) 31 38-52 L [facility] HospitalZlqahavMUEYCCCDK5088-67-43 01:56:00 Test Item Value Reference Range Interpretation Comments Lactic Acid Lvl (test code = Lactic 4.4 0.5-2.2 H Acid Lvl) [facility] HospitalIbecwauMBJZPKELB1597-35-97 01:56:00 Test Item Value Reference Range Interpretation Comments Ethanol Lvl (test code = Ethanol Lvl) 79 [facility] HospitalYlhcfgoUGVGJCCOP5901-36-56 01:56:00 Test Item Value Reference Range Interpretation Comments Etoh (%) (test code = Etoh (%)) 0.079 [facility] HospitalJizaxxuQQRDXSELH3362-79-98 01:56:00 Test Item Value Reference Range Interpretation Comments eGFR (test code = eGFR) 93 [facility] HospitalLbbisweIOKAGMRSK3258-11-45 01:56:00 Test Item Value Reference Range Interpretation Comments BUN (test code = BUN) 6 7-22 L [facility] HospitalFdxwzqaSFEWZYCCV1271-26-67 01:56:00 Test Item Value Reference Range Interpretation Comments Creatinine Lvl (test code = Creatinine 1.1 0.5-1.4 N Lvl) [facility] HospitalPjghxheXVSPWVATN2988-03-52 01:56:00 Test Item Value Reference Range Interpretation Comments Glucose Lvl (test code = Glucose Lvl) 124 70-99 H [facility] HospitalHhozndtBBGJPUAYR0350-46-01 01:56:00 Test Item Value Reference Range Interpretation Comments Sodium Lvl (test code = Sodium Lvl) 140 135-145 N [facility] HospitalTqxvebnBGLYRQKKQ4879-71-12 01:56:00 Test Item Value Reference Range Interpretation Comments Chloride Lvl (test code = Chloride Lvl) 103 95-109 N [facility] HospitalOfwfqofYALXEMWQB7445-72-92 01:56:00 Test Item Value Reference Range Interpretation Comments CO2 (test code = CO2) 21 24-32 L [facility] HospitalFfyuvrtHACMRPPEC5030-56-32 01:56:00 Test Item Value Reference Range Interpretation Comments Potassium Lvl (test code = Potassium 3.1 3.5-5.1 L Lvl) [facility] HospitalMrnozexPYIPPCXCV0583-31-98 01:56:00 Test Item Value Reference Range Interpretation Comments Calcium Lvl (test code = Calcium Lvl) 8.6 8.5-10.5 N [facility] HospitalLfakidpCRQCNEXBV8888-14-95 01:56:00 Test Item Value Reference Range Interpretation Comments AGAP (test code = AGAP) 19.1 10.0-20.0 N [facility] CypressMnppovxGMLGEAZXLS6241-07-51 01:56:00 Test Item Value Reference Range Interpretation Comments Estimated % Lysis (test 1.3 See_Comment N [Au tomated message] The code = Estimated % system wh ich generated Lysis) this result tra nsmitted reference range : <=7.5. The reference r annemarie was not used to int erpret this result as normal/abnormal . [facility] CypressWshcsjaAEPRFFEVWM2259-61-35 01:56:00 Test Item Value Reference Range Interpretation Comments K-time (test code = K-time) 2.2 min 0.6-2.3 N [facility] CypressObeddlsTNBBXDTVES7711-74-52 01:56:00 Test Item Value Reference Range Interpretation Comments Angle (test code = Angle) 64 degrees 64-80 N [facility] CypressEhmjqluVWAQXNEMSO3985-32-82 01:56:00 Test Item Value Reference Range Interpretation Comments Max Amp (test code = Max Amp) 58 mm 52-71 N [facility] CypressXzaxlvrNJUWLJDIQM0521-03-78 01:56:00 Test Item Value Reference Range Interpretation Comments R-time (test code = R-time) 0.8 min 0.4-0.7 H [facility] CypressFngioirQQRDLWQZTM1268-92-19 01:56:00 Test Item Value Reference Range Interpretation Comments Split Point (test code = Split Point) 0.6 min [facility] CypressEerdrtfCLBZCVFQQP3359-94-05 01:56:00 Test Item Value Reference Range Interpretation Comments Rapid TEG Sample Type Citrated Whole Blood (test code = Rapid TEG Sample Type) [facility] CypressMnjebnuWMMVKOBBIQ3520-37-63 01:56:00 Test Item Value Reference Range Interpretation Comments ACT (TEG) (test code = ACT (TEG)) 121 s 86-118 H [facility] CypressMceemcbSJDVZNTKQN6767-68-64 01:56:00 Test Item Value Reference Range Interpretation Comments G-value (test code = G-value) 6.9 5.0-11.6 N [facility] CypressYqwdrpoDTPANMLTGD9059-35-68 01:56:00 Test Item Value Reference Range Interpretation Comments Hgb (test code = Hgb) 14.8 14.0-18.0 N [facility] CypressHieslanHLEWRROIJJ9806-73-65 01:56:00 Test Item Value Reference Range Interpretation Comments RBC (test code = RBC) 5.05 4.70-6.10 N [facility] CypressVtsmedrRSQRDZAQCX6555-04-46 01:56:00 Test Item Value Reference Range Interpretation Comments Hct (test code = Hct) 44.5 42.0-54.0 N [facility] CypressUjpcympRAIVNMABQH6992-52-27 01:56:00 Test Item Value Reference Range Interpretation Comments WBC (test code = WBC) 11.8 3.7-10.4 H [facility] CypressUwudbcvGWYMVFCOFU2396-90-09 01:56:00 Test Item Value Reference Range Interpretation Comments MPV (test code = MPV) 9.2 7.4-10.4 N [facility] CypressOfblbugFVVKGXCBST9685-82-21 01:56:00 Test Item Value Reference Range Interpretation Comments MCHC (test code = MCHC) 33.2 32.0-36.0 N [facility] CypressQfxrnnrMCECYAUSHD4350-22-69 01:56:00 Test Item Value Reference Range Interpretation Comments MCV (test code = MCV) 88.1 80.0-94.0 N [facility] CypressGdjdrgwFWJSDWNXOT0176-29-56 01:56:00 Test Item Value Reference Range Interpretation Comments MCH (test code = MCH) 29.3 pg 27.0-31.0 N [facility] CypressGjczqghGUOGZVXERE5894-31-31 01:56:00 Test Item Value Reference Range Interpretation Comments Platelet (test code = Platelet) 175 133-450 N [facility] CypressChlqixpHHAWTRXVKV9884-71-50 01:56:00 Test Item Value Reference Range Interpretation Comments RDW (test code = RDW) 12.4 11.5-14.5 N [facility] CypressLxlcahiPNSIDXKTJY1779-16-11 01:56:00 Test Item Value Reference Range Interpretation Comments Lymphocytes (test code = Lymphocytes) 14.0 20.0-40.0 L [facility] CypressWphdnlfXTBZWDZPLI3049-84-02 01:56:00 Test Item Value Reference Range Interpretation Comments RBC Morph (test code = Normal (12/28/2012 N RBC Morph) 20:56:00) [facility] CypressTspherdTHJVPFIAIA6256-28-47 01:56:00 Test Item Value Reference Range Interpretation Comments Bands (test code = 6.0 See_Comment N [Automat ed message] The Bands) system which ge nerated this result transmit abdelrahman reference range : <=11.0. The reference r annemarie was not used to interpr et this result as gurpreet l/abnormal. [facility] CypressOuujggfRNXRRLCVSI3502-51-67 01:56:00 Test Item Value Reference Range Interpretation Comments Segs (test code = Segs) 72.0 45.0-75.0 N [facility] CypressQtasxupNPEGGDYXIY1509-72-51 01:56:00 Test Item Value Reference Range Interpretation Comments Monocytes # (test code 0.9 See_Comment H [Aut omated message] The = Monocytes #) system which generated this result tra nsmitted reference range : <=0.8. The reference r annemarie was not used to int erpret this result as normal/abnormal . [facility] CypressVzssermEQSIOMOJST2132-58-56 01:56:00 Test Item Value Reference Range Interpretation Comments Lymphocytes # (test code = Lymphocytes 1.7 1.0-5.5 N #) [facility] CypressXffhenuKQUYVGHWZS9947-85-78 01:56:00 Test Item Value Reference Range Interpretation Comments Segs-Bands # (test code = Segs-Bands #) 9.2 1.5-8.1 H [facility] CypressQqtnyetZRDTTFDBNP4967-90-42 01:56:00 Test Item Value Reference Range Interpretation Comments Monocytes (test code = Monocytes) 8.0 2.0-12.0 N [facility] CypressOspuizhDRVNDFZKVE5957-63-48 01:56:00 Test Item Value Reference Range Interpretation Comments Atypical Lymphs (test code = Atypical 0.0 N Lymphs) [facility] CypressCmbrborBADUNITGMR9977-82-04 01:56:00 Test Item Value Reference Range Interpretation Comments Plt Morph (test code = Normal (12/28/2012 N Plt Morph) 20:56:00) [facility] HospitalNigakdkKSXQMRRIY4901-96-84 01:56:00 Test Item Value Reference Range Interpretation Comments O2 Sat Frankie (test code = O2 Sat Frankie) 84.6 40.0-70.0 H [facility] HospitalReafiixJVSPMTQAU6549-91-74 01:56:00 Test Item Value Reference Range Interpretation Comments Temp Frankie (test code = Temp Frankie) 37.0 [facility] HospitalAgyxokiULHOPBYQY1860-02-08 01:56:00 Test Item Value Reference Range Interpretation Comments BE Frankie (test code = -4 See_Comment L [Automa abdelrahman message] The BE Frankie) system which ge nerated this result transmit abdelrahman reference range : <=2. The reference range was not used to interpr et this result as gurpreet l/abnormal. [facility] HospitalHzqkpfaTOEFVPYTM4390-65-00 01:56:00 Test Item Value Reference Range Interpretation Comments HCO3 Frankie (test code = HCO3 Frankie) 20 22-26 L [facility] HospitalWqzbdqtPKQGOAGWP8242-26-70 01:56:00 Test Item Value Reference Range Interpretation Comments pO2 Frankie (test code = pO2 Frankie) 49 20-49 N [facility] HospitalMxvagsoFKVVGFEBV6977-04-70 01:56:00 Test Item Value Reference Range Interpretation Comments pH Frankie (test code = pH Frankie) 7.41 7.28-7.42 N [facility] HospitalAooewowOVERWOWUL0470-79-71 01:56:00 Test Item Value Reference Range Interpretation Comments pCO2 Frankie (test code = pCO2 Frankie) 31 38-52 L [facility] HospitalWfxixhlMDTNSTOYE7705-65-24 01:56:00 Test Item Value Reference Range Interpretation Comments Lactic Acid Lvl (test code = Lactic 4.4 0.5-2.2 H Acid Lvl) [facility] HospitalKmikjwjWOKMHRAKE9341-77-73 01:56:00 Test Item Value Reference Range Interpretation Comments Ethanol Lvl (test code = Ethanol Lvl) 79 [facility] HospitalXwiyhasHCLNZHNWU8098-36-31 01:56:00 Test Item Value Reference Range Interpretation Comments Etoh (%) (test code = Etoh (%)) 0.079 [facility] HospitalRnbxoziPCIHZTAPX5120-22-60 01:56:00 Test Item Value Reference Range Interpretation Comments eGFR (test code = eGFR) 93 [facility] HospitalTjtehxaEYOEPVTBI7439-96-32 01:56:00 Test Item Value Reference Range Interpretation Comments BUN (test code = BUN) 6 7-22 L [facility] HospitalYfhdqlwJXFCBLMSV6907-65-94 01:56:00 Test Item Value Reference Range Interpretation Comments Creatinine Lvl (test code = Creatinine 1.1 0.5-1.4 N Lvl) [facility] HospitalJivuejaWUEUYIBKX3983-74-11 01:56:00 Test Item Value Reference Range Interpretation Comments Glucose Lvl (test code = Glucose Lvl) 124 70-99 H [facility] HospitalTqnkghyJYGIGKOBI5413-05-68 01:56:00 Test Item Value Reference Range Interpretation Comments Sodium Lvl (test code = Sodium Lvl) 140 135-145 N [facility] HospitalQvctdveUQALKCDLD1006-07-12 01:56:00 Test Item Value Reference Range Interpretation Comments Chloride Lvl (test code = Chloride Lvl) 103 95-109 N [facility] HospitalDmmviqzWCHWOLKMG2219-07-93 01:56:00 Test Item Value Reference Range Interpretation Comments CO2 (test code = CO2) 21 24-32 L [facility] HospitalZixbsmfYFZCIJSAS7809-88-56 01:56:00 Test Item Value Reference Range Interpretation Comments Potassium Lvl (test code = Potassium 3.1 3.5-5.1 L Lvl) [facility] HospitalXvvkwjbDAZYQHMRB8224-15-60 01:56:00 Test Item Value Reference Range Interpretation Comments Calcium Lvl (test code = Calcium Lvl) 8.6 8.5-10.5 N [facility] HospitalDyfltlcQXWREOBZP3422-47-65 01:56:00 Test Item Value Reference Range Interpretation Comments AGAP (test code = AGAP) 19.1 10.0-20.0 N [facility] CypressDosugylVPFXMTZODP1610-59-05 01:56:00 Test Item Value Reference Range Interpretation Comments Estimated % Lysis (test 1.3 See_Comment N [Au tomated message] The code = Estimated % system wh ich generated Lysis) this result tra nsmitted reference range : <=7.5. The reference r annemarie was not used to int erpret this result as normal/abnormal . [facility] CypressAeyyugmUJMJZEMHOL3548-03-64 01:56:00 Test Item Value Reference Range Interpretation Comments K-time (test code = K-time) 2.2 min 0.6-2.3 N [facility] CypressPxeccgcAMVRCKOPHU9261-24-71 01:56:00 Test Item Value Reference Range Interpretation Comments Angle (test code = Angle) 64 degrees 64-80 N [facility] CypressIdtnjhmMYGJCZJXQJ4702-17-92 01:56:00 Test Item Value Reference Range Interpretation Comments Max Amp (test code = Max Amp) 58 mm 52-71 N [facility] CypressYnwrxrhXNVOKNEVIJ2065-01-83 01:56:00 Test Item Value Reference Range Interpretation Comments R-time (test code = R-time) 0.8 min 0.4-0.7 H [facility] CypressMdhulliURTARJJCRV6293-35-89 01:56:00 Test Item Value Reference Range Interpretation Comments Split Point (test code = Split Point) 0.6 min [facility] CypressQkslnzcUAIKLUVZZS5780-70-78 01:56:00 Test Item Value Reference Range Interpretation Comments Rapid TEG Sample Type Citrated Whole Blood (test code = Rapid TEG Sample Type) [facility] CypressFtgncbhEAJFPNNDQY9335-45-70 01:56:00 Test Item Value Reference Range Interpretation Comments ACT (TEG) (test code = ACT (TEG)) 121 s 86-118 H [facility] CypressYrzpshdRPAARCRCTZ9496-41-91 01:56:00 Test Item Value Reference Range Interpretation Comments G-value (test code = G-value) 6.9 5.0-11.6 N [facility] CypressMcbaaxrQIEXSMYILN7921-85-42 01:56:00 Test Item Value Reference Range Interpretation Comments Hgb (test code = Hgb) 14.8 14.0-18.0 N [facility] CypressFlzlaelYYPMSSXYIV7236-10-76 01:56:00 Test Item Value Reference Range Interpretation Comments RBC (test code = RBC) 5.05 4.70-6.10 N [facility] CypressGoepdmzNQEICQJYYC5275-36-03 01:56:00 Test Item Value Reference Range Interpretation Comments Hct (test code = Hct) 44.5 42.0-54.0 N [facility] CypressCtichxfBQYDTHWHVN2307-61-78 01:56:00 Test Item Value Reference Range Interpretation Comments WBC (test code = WBC) 11.8 3.7-10.4 H [facility] CypressGumpomsFEBMBJWWWA2211-20-67 01:56:00 Test Item Value Reference Range Interpretation Comments MPV (test code = MPV) 9.2 7.4-10.4 N [facility] CypressBgrgdefJLBUJOIVKU5001-58-20 01:56:00 Test Item Value Reference Range Interpretation Comments MCHC (test code = MCHC) 33.2 32.0-36.0 N [facility] CypressUvwiyrnLSESWAIFFZ3330-11-24 01:56:00 Test Item Value Reference Range Interpretation Comments MCV (test code = MCV) 88.1 80.0-94.0 N [facility] CypressUhfopmxPDCYHIZQJH3272-36-78 01:56:00 Test Item Value Reference Range Interpretation Comments MCH (test code = MCH) 29.3 pg 27.0-31.0 N [facility] CypressJuqwjqsMFCHASDXPE4958-69-69 01:56:00 Test Item Value Reference Range Interpretation Comments Platelet (test code = Platelet) 175 133-450 N [facility] CypressDgzdhckVUDFANPEJM2182-16-75 01:56:00 Test Item Value Reference Range Interpretation Comments RDW (test code = RDW) 12.4 11.5-14.5 N [facility] CypressGrkpfomLSFBZPDOEB8679-83-54 01:56:00 Test Item Value Reference Range Interpretation Comments Lymphocytes (test code = Lymphocytes) 14.0 20.0-40.0 L [facility] CypressVidnitwJYDJRKAIZF7066-90-86 01:56:00 Test Item Value Reference Range Interpretation Comments RBC Morph (test code = Normal (12/28/2012 N RBC Morph) 20:56:00) [facility] CypressOytsukxOZKPHPCFVA7925-88-18 01:56:00 Test Item Value Reference Range Interpretation Comments Bands (test code = 6.0 See_Comment N [Automat ed message] The Bands) system which ge nerated this result transmit abdelrahman reference range : <=11.0. The reference r annemarie was not used to interpr et this result as gurpreet l/abnormal. [facility] CypressOpqenfeSBDIZUCKAD0651-61-02 01:56:00 Test Item Value Reference Range Interpretation Comments Segs (test code = Segs) 72.0 45.0-75.0 N [facility] CypressNtdkmxxRMSDQGMBPJ5368-96-33 01:56:00 Test Item Value Reference Range Interpretation Comments Monocytes # (test code 0.9 See_Comment H [Aut omated message] The = Monocytes #) system which generated this result tra nsmitted reference range : <=0.8. The reference r annemarie was not used to int erpret this result as normal/abnormal . [facility] CypressVahalqkTISHYZFEMT9979-20-47 01:56:00 Test Item Value Reference Range Interpretation Comments Lymphocytes # (test code = Lymphocytes 1.7 1.0-5.5 N #) [facility] CypressHkotjolAMKFGZMUHJ0543-17-41 01:56:00 Test Item Value Reference Range Interpretation Comments Segs-Bands # (test code = Segs-Bands #) 9.2 1.5-8.1 H [facility] CypressOjszopiHVWDJINMVU6033-06-67 01:56:00 Test Item Value Reference Range Interpretation Comments Monocytes (test code = Monocytes) 8.0 2.0-12.0 N [facility] CypressBaornkeMMRSRHFJFR1845-66-81 01:56:00 Test Item Value Reference Range Interpretation Comments Atypical Lymphs (test code = Atypical 0.0 N Lymphs) [facility] CypressVnowfzbMYRCWCGFGD0353-84-93 01:56:00 Test Item Value Reference Range Interpretation Comments Plt Morph (test code = Normal (12/28/2012 N Plt Morph) 20:56:00) [facility] HospitalXqcsowkPKTQYSAWG5412-41-30 01:56:00 Test Item Value Reference Range Interpretation Comments O2 Sat Frankie (test code = O2 Sat Frankie) 84.6 40.0-70.0 H [facility] HospitalOfomlxoHTSGHPFCV2825-64-23 01:56:00 Test Item Value Reference Range Interpretation Comments Temp Frankie (test code = Temp Frankie) 37.0 [facility] HospitalTyexcmyFFUXOTCOZ3357-95-32 01:56:00 Test Item Value Reference Range Interpretation Comments BE Frankie (test code = -4 See_Comment L [Automa abdelrahman message] The BE Frankie) system which ge nerated this result transmit abdelrahman reference range : <=2. The reference range was not used to interpr et this result as gurpreet l/abnormal. [facility] HospitalHmzayzmJPYTZDWIM0442-09-65 01:56:00 Test Item Value Reference Range Interpretation Comments HCO3 Frankie (test code = HCO3 Frankie) 20 22-26 L [facility] HospitalPfuzmhmBTFVZFMAX2729-21-17 01:56:00 Test Item Value Reference Range Interpretation Comments pO2 Frankie (test code = pO2 Frankie) 49 20-49 N [facility] HospitalExxxdgzFAQTRKURJ7828-33-64 01:56:00 Test Item Value Reference Range Interpretation Comments pH Frankie (test code = pH Frankie) 7.41 7.28-7.42 N [facility] HospitalLtwiqhoMWCRPQVWR8078-52-82 01:56:00 Test Item Value Reference Range Interpretation Comments pCO2 Frankie (test code = pCO2 Frankie) 31 38-52 L [facility] HospitalTfdhaceVGWIOEDZV9084-02-18 01:56:00 Test Item Value Reference Range Interpretation Comments Lactic Acid Lvl (test code = Lactic 4.4 0.5-2.2 H Acid Lvl) [facility] HospitalZtcxouxIMAPYDIXA4388-90-53 01:56:00 Test Item Value Reference Range Interpretation Comments Ethanol Lvl (test code = Ethanol Lvl) 79 [facility] HospitalJypzxwnDJATXYEKW9770-86-67 01:56:00 Test Item Value Reference Range Interpretation Comments Etoh (%) (test code = Etoh (%)) 0.079 [facility] HospitalUytmdkvOBWGQNCRF9768-64-25 01:56:00 Test Item Value Reference Range Interpretation Comments eGFR (test code = eGFR) 93 [facility] HospitalXnkcdzzQXJFOPIVO2770-31-58 01:56:00 Test Item Value Reference Range Interpretation Comments BUN (test code = BUN) 6 7-22 L [facility] HospitalSsrpyjsESSOXAMHC4823-43-34 01:56:00 Test Item Value Reference Range Interpretation Comments Creatinine Lvl (test code = Creatinine 1.1 0.5-1.4 N Lvl) [facility] HospitalUvsdhxdJBNOGOTBV0830-22-05 01:56:00 Test Item Value Reference Range Interpretation Comments Glucose Lvl (test code = Glucose Lvl) 124 70-99 H [facility] HospitalPvodqpeQRZTZQNKH5478-15-39 01:56:00 Test Item Value Reference Range Interpretation Comments Sodium Lvl (test code = Sodium Lvl) 140 135-145 N [facility] HospitalVpzcgwxRYCWNBTJU1701-49-82 01:56:00 Test Item Value Reference Range Interpretation Comments Chloride Lvl (test code = Chloride Lvl) 103 95-109 N [facility] HospitalCckxjyyEJQFMDTVP6863-43-19 01:56:00 Test Item Value Reference Range Interpretation Comments CO2 (test code = CO2) 21 24-32 L [facility]QonkytbWQCEFBQEJ3084-82-39 01:56:00 Test Item Value Reference Range Interpretation Comments Potassium Lvl (test code = Potassium 3.1 3.5-5.1 L Lvl) [facility] HospitalKgynprhZSPONEKKI7449-44-84 01:56:00 Test Item Value Reference Range Interpretation Comments Calcium Lvl (test code = Calcium Lvl) 8.6 8.5-10.5 N [facility] HospitalNvxjldsSQDJGSPRB6710-80-44 01:56:00 Test Item Value Reference Range Interpretation Comments AGAP (test code = AGAP) 19.1 10.0-20.0 N [facility]ressWbpdlwtZAMHOUMDKV5426-38-11 01:56:00 Test Item Value Reference Range Interpretation Comments Estimated % Lysis (test 1.3 See_Comment N [Au tomated message] The code = Estimated % system wh ich generated Lysis) this result tra nsmitted reference range : <=7.5. The reference r annemarie was not used to int erpret this result as normal/abnormal . [facility] CypressQilzjnjSRIEGRCWJY9782-29-73 01:56:00 Test Item Value Reference Range Interpretation Comments K-time (test code = K-time) 2.2 min 0.6-2.3 N [facility] CypressLikqvtjLAEFKVEOLU8679-81-09 01:56:00 Test Item Value Reference Range Interpretation Comments Angle (test code = Angle) 64 degrees 64-80 N [facility] CypressGyklvjxDFVVYKHYOC1690-60-78 01:56:00 Test Item Value Reference Range Interpretation Comments Max Amp (test code = Max Amp) 58 mm 52-71 N [facility] CypressMcpeurzHSTZVEWPWR0966-79-72 01:56:00 Test Item Value Reference Range Interpretation Comments R-time (test code = R-time) 0.8 min 0.4-0.7 H [facility] CypressYyzgbicBGSVZSZRWP7320-86-24 01:56:00 Test Item Value Reference Range Interpretation Comments Split Point (test code = Split Point) 0.6 min [facility] CypressYkxsxdwDZOPOLBNSL3184-18-34 01:56:00 Test Item Value Reference Range Interpretation Comments Rapid TEG Sample Type Citrated Whole Blood (test code = Rapid TEG Sample Type) [place] [address]-08-31 01:56:00 Test Item Value Reference Range Interpretation Comments ACT (TEG) (test code = ACT (TEG)) 121 s 86-118 H [facility] CypressPyrtqqtWHKNRPGNFK4794-47-58 01:56:00 Test Item Value Reference Range Interpretation Comments G-value (test code = G-value) 6.9 5.0-11.6 N [facility] CypressXvxikpcNJKCCGHZXC8938-47-21 01:56:00 Test Item Value Reference Range Interpretation Comments Hgb (test code = Hgb) 14.8 14.0-18.0 N [facility] CypressUwuypvuZJVJNAFOIY2068-21-66 01:56:00 Test Item Value Reference Range Interpretation Comments RBC (test code = RBC) 5.05 4.70-6.10 N [facility] CypressBzrdioxVSEHFMNRSO9230-91-86 01:56:00 Test Item Value Reference Range Interpretation Comments Hct (test code = Hct) 44.5 42.0-54.0 N [facility] CypressPcaspjcWNZKRSDVBU5784-00-80 01:56:00 Test Item Value Reference Range Interpretation Comments WBC (test code = WBC) 11.8 3.7-10.4 H [facility] CypressNmfphmgKFVOZOOCFX9045-36-95 01:56:00 Test Item Value Reference Range Interpretation Comments MPV (test code = MPV) 9.2 7.4-10.4 N [facility] CypressKafpgxoCQFRISIZLM8110-62-85 01:56:00 Test Item Value Reference Range Interpretation Comments MCHC (test code = MCHC) 33.2 32.0-36.0 N [facility] CypressRphuuwdOJJSSCYNYB3333-90-34 01:56:00 Test Item Value Reference Range Interpretation Comments MCV (test code = MCV) 88.1 80.0-94.0 N [facility] CypressZtumdweFVFFNYGNKL4599-04-16 01:56:00 Test Item Value Reference Range Interpretation Comments MCH (test code = MCH) 29.3 pg 27.0-31.0 N [facility] CypressHpahueyMFHKLVGTZU9836-04-23 01:56:00 Test Item Value Reference Range Interpretation Comments Platelet (test code = Platelet) 175 133-450 N [facility] CypressHuzqtaiZYRGITKGPK6688-61-70 01:56:00 Test Item Value Reference Range Interpretation Comments RDW (test code = RDW) 12.4 11.5-14.5 N [facility] CypressGkjgglsNRSWFOJIDI0955-88-16 01:56:00 Test Item Value Reference Range Interpretation Comments Lymphocytes (test code = Lymphocytes) 14.0 20.0-40.0 L [facility] CypressXxekdzhAZAZFNSWSO0330-68-06 01:56:00 Test Item Value Reference Range Interpretation Comments RBC Morph (test code = Normal (12/28/2012 N RBC Morph) 20:56:00) [facility] CypressIzdexzhAOPYZALNHM0487-64-14 01:56:00 Test Item Value Reference Range Interpretation Comments Bands (test code = 6.0 See_Comment N [Automat ed message] The Bands) system which ge nerated this result transmit abdelrahman reference range : <=11.0. The reference r annemarie was not used to interpr et this result as gurpreet l/abnormal. [facility] CypressNfshglcVYCACQIARB5443-52-24 01:56:00 Test Item Value Reference Range Interpretation Comments Segs (test code = Segs) 72.0 45.0-75.0 N [facility] CypressQryzmkgQAHEYRMKII0298-23-41 01:56:00 Test Item Value Reference Range Interpretation Comments Monocytes # (test code 0.9 See_Comment H [Aut omated message] The = Monocytes #) system which generated this result tra nsmitted reference range : <=0.8. The reference r annemarie was not used to int erpret this result as normal/abnormal . [facility] CypressGkyyabsHPGAEFBJQA1951-34-07 01:56:00 Test Item Value Reference Range Interpretation Comments Lymphocytes # (test code = Lymphocytes 1.7 1.0-5.5 N #) [facility] CypressUzgtgidDCRUVRWDAC6496-09-72 01:56:00 Test Item Value Reference Range Interpretation Comments Segs-Bands # (test code = Segs-Bands #) 9.2 1.5-8.1 H [facility] CypressOhwtwmsYBBXOVLCUS4981-82-88 01:56:00 Test Item Value Reference Range Interpretation Comments Monocytes (test code = Monocytes) 8.0 2.0-12.0 N [facility] CypressBuxcvbjCTXOUCKLUW7238-04-89 01:56:00 Test Item Value Reference Range Interpretation Comments Atypical Lymphs (test code = Atypical 0.0 N Lymphs) [facility] CypressVjbpkerJFJFDKBBRX5862-90-15 01:56:00 Test Item Value Reference Range Interpretation Comments Plt Morph (test code = Normal (12/28/2012 N Plt Morph) 20:56:00) [facility] HospitalQsooypeHPRNTCJPN0483-28-43 01:56:00 Test Item Value Reference Range Interpretation Comments O2 Sat Frankie (test code = O2 Sat Frankie) 84.6 40.0-70.0 H [facility] HospitalQcndszwOSAOXVUFO4567-99-48 01:56:00 Test Item Value Reference Range Interpretation Comments Temp Frankie (test code = Temp Frankie) 37.0 [facility] HospitalJnkxyfaFICVVRCUU3707-18-39 01:56:00 Test Item Value Reference Range Interpretation Comments BE Frankie (test code = -4 See_Comment L [Automa abdelrahman message] The BE Frankie) system which ge nerated this result transmit abdelrahman reference range : <=2. The reference range was not used to interpr et this result as gurpreet l/abnormal. [facility] HospitalRdgrovkGNTMFUQUX7570-51-60 01:56:00 Test Item Value Reference Range Interpretation Comments HCO3 Frankie (test code = HCO3 Frankie) 20 22-26 L [facility] HospitalZouzpxqMNPTPPLNL4582-75-01 01:56:00 Test Item Value Reference Range Interpretation Comments pO2 Frankie (test code = pO2 Frankie) 49 20-49 N [facility] HospitalRxdhshjWVUOPYJHE8702-74-34 01:56:00 Test Item Value Reference Range Interpretation Comments pH Frankie (test code = pH Frankie) 7.41 7.28-7.42 N [facility] HospitalXpxbhheANSDKMNZQ8253-62-26 01:56:00 Test Item Value Reference Range Interpretation Comments pCO2 Frankie (test code = pCO2 Frankie) 31 38-52 L [facility] HospitalRgbmdzjLBLKBAQJR9910-60-43 01:56:00 Test Item Value Reference Range Interpretation Comments Lactic Acid Lvl (test code = Lactic 4.4 0.5-2.2 H Acid Lvl) [facility] HospitalCdcrxoeIKUNBSONH2302-35-15 01:56:00 Test Item Value Reference Range Interpretation Comments Ethanol Lvl (test code = Ethanol Lvl) 79 [facility] HospitalWnepsixGUHNYZNDM6663-30-04 01:56:00 Test Item Value Reference Range Interpretation Comments Etoh (%) (test code = Etoh (%)) 0.079 [facility] HospitalOdiyebwJIWIIRCVD9897-03-33 01:56:00 Test Item Value Reference Range Interpretation Comments eGFR (test code = eGFR) 93 [facility] HospitalZwmstzbSPBUYOIGM9127-74-93 01:56:00 Test Item Value Reference Range Interpretation Comments BUN (test code = BUN) 6 7-22 L [facility] HospitalTrgkwvjVREWHSTSN7699-24-47 01:56:00 Test Item Value Reference Range Interpretation Comments Creatinine Lvl (test code = Creatinine 1.1 0.5-1.4 N Lvl) [facility] HospitalKplfjdbVJOHXIPWL4420-03-42 01:56:00 Test Item Value Reference Range Interpretation Comments Glucose Lvl (test code = Glucose Lvl) 124 70-99 H [facility] HospitalPhffwfvPEHMECTSF9684-76-17 01:56:00 Test Item Value Reference Range Interpretation Comments Sodium Lvl (test code = Sodium Lvl) 140 135-145 N [facility] HospitalQgswkszMUPJNLGZB9453-51-30 01:56:00 Test Item Value Reference Range Interpretation Comments Chloride Lvl (test code = Chloride Lvl) 103 95-109 N [facility] HospitalGidlhmzBKFBWFPDA9245-55-80 01:56:00 Test Item Value Reference Range Interpretation Comments CO2 (test code = CO2) 21 24-32 L [facility] HospitalUxevicwWDYHOCLRK5927-72-23 01:56:00 Test Item Value Reference Range Interpretation Comments Potassium Lvl (test code = Potassium 3.1 3.5-5.1 L Lvl) [facility] HospitalBjjelhsNBJAFZCJI1392-50-87 01:56:00 Test Item Value Reference Range Interpretation Comments Calcium Lvl (test code = Calcium Lvl) 8.6 8.5-10.5 N [facility] HospitalCnohyfmRPYKFURSI6939-46-68 01:56:00 Test Item Value Reference Range Interpretation Comments AGAP (test code = AGAP) 19.1 10.0-20.0 N [facility] CypressYcbveylCYHCDZIBSP6503-82-54 01:56:00 Test Item Value Reference Range Interpretation Comments Estimated % Lysis (test 1.3 See_Comment N [Au tomated message] The code = Estimated % system wh ich generated Lysis) this result tra nsmitted reference range : <=7.5. The reference r annemarie was not used to int erpret this result as normal/abnormal . [facility] CypressGkexqtcYEASQITREY8498-24-75 01:56:00 Test Item Value Reference Range Interpretation Comments K-time (test code = K-time) 2.2 min 0.6-2.3 N [place] [address]-08-31 01:56:00 Test Item Value Reference Range Interpretation Comments Angle (test code = Angle) 64 degrees 64-80 N [facility] CypressNfueozdZSWDGBCKRP7097-08-94 01:56:00 Test Item Value Reference Range Interpretation Comments Max Amp (test code = Max Amp) 58 mm 52-71 N [facility] CypressCzadhjbQSVESQCKLA9176-57-26 01:56:00 Test Item Value Reference Range Interpretation Comments R-time (test code = R-time) 0.8 min 0.4-0.7 H [place] [address]-08-31 01:56:00 Test Item Value Reference Range Interpretation Comments Split Point (test code = Split Point) 0.6 min [facility] CypressInwscpsODFRMBEIUK0318-40-00 01:56:00 Test Item Value Reference Range Interpretation Comments Rapid TEG Sample Type Citrated Whole Blood (test code = Rapid TEG Sample Type) [facility] CypressMmgehzmFEHHSMLPQZ4277-45-68 01:56:00 Test Item Value Reference Range Interpretation Comments ACT (TEG) (test code = ACT (TEG)) 121 s 86-118 H [place] 130003-08-31 01:56:00 Test Item Value Reference Range Interpretation Comments G-value (test code = G-value) 6.9 5.0-11.6 N [facility] CypressIwzxwdvDPHNYRYJVE5023-57-03 01:56:00 Test Item Value Reference Range Interpretation Comments Hgb (test code = Hgb) 14.8 14.0-18.0 N [facility] CypressZrznbctICYPSGPDKL9164-14-59 01:56:00 Test Item Value Reference Range Interpretation Comments RBC (test code = RBC) 5.05 4.70-6.10 N [place] [address]-08-31 01:56:00 Test Item Value Reference Range Interpretation Comments Hct (test code = Hct) 44.5 42.0-54.0 N [place] [address]-08-31 01:56:00 Test Item Value Reference Range Interpretation Comments WBC (test code = WBC) 11.8 3.7-10.4 H [facility] CypressJejzzomVNTBMTJDXJ7504-45-21 01:56:00 Test Item Value Reference Range Interpretation Comments MPV (test code = MPV) 9.2 7.4-10.4 N [facility] CypressNhqidpmYKXROCNYHH1126-86-12 01:56:00 Test Item Value Reference Range Interpretation Comments MCHC (test code = MCHC) 33.2 32.0-36.0 N [facility] CypressCpuulgrVSUKYPEEXZ1410-30-66 01:56:00 Test Item Value Reference Range Interpretation Comments MCV (test code = MCV) 88.1 80.0-94.0 N [facility] CypressYdlsusvSTJRCQARJH4361-37-45 01:56:00 Test Item Value Reference Range Interpretation Comments MCH (test code = MCH) 29.3 pg 27.0-31.0 N [facility] CypressNbqvtyqPNACTYOAXR1767-70-60 01:56:00 Test Item Value Reference Range Interpretation Comments Platelet (test code = Platelet) 175 133-450 N [facility] CypressEmqwltbTIQNQLIZOK0825-77-63 01:56:00 Test Item Value Reference Range Interpretation Comments RDW (test code = RDW) 12.4 11.5-14.5 N [facility] CypressCooyvkcHUDTXMHKIN3915-32-92 01:56:00 Test Item Value Reference Range Interpretation Comments Lymphocytes (test code = Lymphocytes) 14.0 20.0-40.0 L [facility] CypressMdsjgstJHYSXTWRCC1743-10-79 01:56:00 Test Item Value Reference Range Interpretation Comments RBC Morph (test code = Normal (12/28/2012 N RBC Morph) 20:56:00) [facility] CypressTpognziSSVIOZZMZR8338-14-93 01:56:00 Test Item Value Reference Range Interpretation Comments Bands (test code = 6.0 See_Comment N [Automat ed message] The Bands) system which ge nerated this result transmit abdelrahman reference range : <=11.0. The reference r annemarie was not used to interpr et this result as gurpreet l/abnormal. [facility] CypressDxvwjabVVMCTQNQSY6964-47-83 01:56:00 Test Item Value Reference Range Interpretation Comments Segs (test code = Segs) 72.0 45.0-75.0 N [facility] CypressOxpvwihVCVVRYLQWU5745-46-10 01:56:00 Test Item Value Reference Range Interpretation Comments Monocytes # (test code 0.9 See_Comment H [Aut omated message] The = Monocytes #) system which generated this result tra nsmitted reference range : <=0.8. The reference r annemarie was not used to int erpret this result as normal/abnormal . [facility] CypressXqrhvseGTHAAESPHH0482-69-87 01:56:00 Test Item Value Reference Range Interpretation Comments Lymphocytes # (test code = Lymphocytes 1.7 1.0-5.5 N #) [facility] CypressQkfxayiUENGXPVYUB8108-37-73 01:56:00 Test Item Value Reference Range Interpretation Comments Segs-Bands # (test code = Segs-Bands #) 9.2 1.5-8.1 H [facility] CypressUcrowqnJPUHGKIPQW0620-77-33 01:56:00 Test Item Value Reference Range Interpretation Comments Monocytes (test code = Monocytes) 8.0 2.0-12.0 N [facility] CypressMpppsqyPOOWDGDOKY0029-42-07 01:56:00 Test Item Value Reference Range Interpretation Comments Atypical Lymphs (test code = Atypical 0.0 N Lymphs) [facility] CypressOndkgviNZAYOMAFCN8464-58-38 01:56:00 Test Item Value Reference Range Interpretation Comments Plt Morph (test code = Normal (12/28/2012 N Plt Morph) 20:56:00) [facility] HospitalBqgiaxwJMHBVKRZZ3911-75-69 01:56:00 Test Item Value Reference Range Interpretation Comments O2 Sat Frankie (test code = O2 Sat Frankie) 84.6 40.0-70.0 H [facility] HospitalBtgsqoeICMTATWDZ7857-72-85 01:56:00 Test Item Value Reference Range Interpretation Comments Temp Frankie (test code = Temp Frankie) 37.0 [facility] HospitalSmtnubvCZKRMEYAP6617-20-03 01:56:00 Test Item Value Reference Range Interpretation Comments BE Frankie (test code = -4 See_Comment L [Automa abdelrahman message] The BE Frankie) system which ge nerated this result transmit abdelrahman reference range : <=2. The reference range was not used to interpr et this result as gurpreet l/abnormal. [facility] HospitalNmpuhpfXISBDYSXS5849-40-48 01:56:00 Test Item Value Reference Range Interpretation Comments HCO3 Frankie (test code = HCO3 Frankie) 20 22-26 L [facility] HospitalAclcovqFQXWXMRPM6583-02-37 01:56:00 Test Item Value Reference Range Interpretation Comments pO2 Frankie (test code = pO2 Frankie) 49 20-49 N [facility] HospitalYnrzdywRHCLJEJRG4720-74-71 01:56:00 Test Item Value Reference Range Interpretation Comments pH Frankie (test code = pH Frankie) 7.41 7.28-7.42 N [facility] HospitalOiuhcvxZQTULYPCW4381-51-07 01:56:00 Test Item Value Reference Range Interpretation Comments pCO2 Frankie (test code = pCO2 Frankie) 31 38-52 L [facility] HospitalNancoqqUALBZOJRL2490-86-05 01:56:00 Test Item Value Reference Range Interpretation Comments Lactic Acid Lvl (test code = Lactic 4.4 0.5-2.2 H Acid Lvl) [facility] HospitalCodjxfiFZTGPVSRX2820-87-73 01:56:00 Test Item Value Reference Range Interpretation Comments Ethanol Lvl (test code = Ethanol Lvl) 79 [facility] HospitalGhmzolhJMHQRZPPK2655-45-93 01:56:00 Test Item Value Reference Range Interpretation Comments Etoh (%) (test code = Etoh (%)) 0.079 [facility] HospitalHpbypszLUZVTGLUP3609-72-98 01:56:00 Test Item Value Reference Range Interpretation Comments eGFR (test code = eGFR) 93 [facility] HospitalMlaemdoJDVASXTRB7411-61-76 01:56:00 Test Item Value Reference Range Interpretation Comments BUN (test code = BUN) 6 7-22 L [facility] HospitalTfhrphnIKMPATVZY2298-05-32 01:56:00 Test Item Value Reference Range Interpretation Comments Creatinine Lvl (test code = Creatinine 1.1 0.5-1.4 N Lvl) [facility] HospitalHspmeodDHLLSZOHC7044-15-32 01:56:00 Test Item Value Reference Range Interpretation Comments Glucose Lvl (test code = Glucose Lvl) 124 70-99 H [facility] HospitalEflksfvCEFJVYRDH5512-35-54 01:56:00 Test Item Value Reference Range Interpretation Comments Sodium Lvl (test code = Sodium Lvl) 140 135-145 N [facility] HospitalBlfdvbeWHPGHIOYV2761-89-83 01:56:00 Test Item Value Reference Range Interpretation Comments Chloride Lvl (test code = Chloride Lvl) 103 95-109 N [facility] HospitalOvoqcfjPSGJSPFCU6569-16-19 01:56:00 Test Item Value Reference Range Interpretation Comments CO2 (test code = CO2) 21 24-32 L [facility] HospitalSnpuiedWIBUEAFQB3546-72-78 01:56:00 Test Item Value Reference Range Interpretation Comments Potassium Lvl (test code = Potassium 3.1 3.5-5.1 L Lvl) [facility] HospitalVhfrxtzTCEVOQYAV5939-51-90 01:56:00 Test Item Value Reference Range Interpretation Comments Calcium Lvl (test code = Calcium Lvl) 8.6 8.5-10.5 N [facility] HospitalCpeafsfSZHCXEKEP3814-48-22 01:56:00 Test Item Value Reference Range Interpretation Comments AGAP (test code = AGAP) 19.1 10.0-20.0 N [facility] CypressGkqtlekKIJAEDOAKD7925-61-70 01:56:00 Test Item Value Reference Range Interpretation Comments Estimated % Lysis (test 1.3 See_Comment N [Au tomated message] The code = Estimated % system wh ich generated Lysis) this result tra nsmitted reference range : <=7.5. The reference r annemarie was not used to int erpret this result as normal/abnormal . [facility] CypressHtfoxozORPEZNYAUS4489-94-04 01:56:00 Test Item Value Reference Range Interpretation Comments K-time (test code = K-time) 2.2 min 0.6-2.3 N [facility] CypressUsgqlfyWXEMJCQBOS2524-11-48 01:56:00 Test Item Value Reference Range Interpretation Comments Angle (test code = Angle) 64 degrees 64-80 N [facility] CypressRgytgcoCUDKYYMXBR4398-19-13 01:56:00 Test Item Value Reference Range Interpretation Comments Max Amp (test code = Max Amp) 58 mm 52-71 N [facility] CypressTlifkweFXLMZIAYXD3170-19-50 01:56:00 Test Item Value Reference Range Interpretation Comments R-time (test code = R-time) 0.8 min 0.4-0.7 H [facility] CypressFwkoqszWUDSUAFYUT8582-25-04 01:56:00 Test Item Value Reference Range Interpretation Comments Split Point (test code = Split Point) 0.6 min [facility] CypressVkakmvsWARXAMVXEE7935-82-83 01:56:00 Test Item Value Reference Range Interpretation Comments Rapid TEG Sample Type Citrated Whole Blood (test code = Rapid TEG Sample Type) [facility] CypressSwgkuzoSFHRTUIXQP2318-52-75 01:56:00 Test Item Value Reference Range Interpretation Comments ACT (TEG) (test code = ACT (TEG)) 121 s 86-118 H [facility] CypressIgncxedLWQHLZFRGY7926-73-21 01:56:00 Test Item Value Reference Range Interpretation Comments G-value (test code = G-value) 6.9 5.0-11.6 N [facility] CypressPqozsqwCFLWTCJIJB0542-52-48 01:56:00 Test Item Value Reference Range Interpretation Comments Hgb (test code = Hgb) 14.8 14.0-18.0 N [facility] CypressHdwkjplKJYCEDITDR3344-58-27 01:56:00 Test Item Value Reference Range Interpretation Comments RBC (test code = RBC) 5.05 4.70-6.10 N [facility] CypressFvrzhgfHKUMVTEHZB6894-46-10 01:56:00 Test Item Value Reference Range Interpretation Comments Hct (test code = Hct) 44.5 42.0-54.0 N [facility] CypressQhojbvdQNPBZQJMRF3284-03-59 01:56:00 Test Item Value Reference Range Interpretation Comments WBC (test code = WBC) 11.8 3.7-10.4 H [facility] CypressCqivnneNVFHXTGVDO3038-24-73 01:56:00 Test Item Value Reference Range Interpretation Comments MPV (test code = MPV) 9.2 7.4-10.4 N [facility] CypressCqjuuwjUYZRDAIGEB8406-96-29 01:56:00 Test Item Value Reference Range Interpretation Comments MCHC (test code = MCHC) 33.2 32.0-36.0 N [facility] CypressIammjnnCDKUTOSIHT7397-63-91 01:56:00 Test Item Value Reference Range Interpretation Comments MCV (test code = MCV) 88.1 80.0-94.0 N [facility] CypressHztqhreGXEYIYLHQE5112-40-08 01:56:00 Test Item Value Reference Range Interpretation Comments MCH (test code = MCH) 29.3 pg 27.0-31.0 N [facility] CypressMcyevlnVPMXDCEBDV5716-99-29 01:56:00 Test Item Value Reference Range Interpretation Comments Platelet (test code = Platelet) 175 133-450 N [facility] CypressJvffnxdYCCSSFBXJT1066-81-26 01:56:00 Test Item Value Reference Range Interpretation Comments RDW (test code = RDW) 12.4 11.5-14.5 N [facility] CypressKitcirxTRJEUOBTAO5618-84-20 01:56:00 Test Item Value Reference Range Interpretation Comments Lymphocytes (test code = Lymphocytes) 14.0 20.0-40.0 L [facility] CypressGrmrhypLPBECEBACJ4327-69-23 01:56:00 Test Item Value Reference Range Interpretation Comments RBC Morph (test code = Normal (12/28/2012 N RBC Morph) 20:56:00) [facility] CypressNapnqmlDMVWUXFCRG4305-24-65 01:56:00 Test Item Value Reference Range Interpretation Comments Bands (test code = 6.0 See_Comment N [Automat ed message] The Bands) system which ge nerated this result transmit abdelrahman reference range : <=11.0. The reference r annemarie was not used to interpr et this result as gurpreet l/abnormal. [facility] CypressWwxzwnaLAYCSQJQWU9442-54-99 01:56:00 Test Item Value Reference Range Interpretation Comments Segs (test code = Segs) 72.0 45.0-75.0 N [facility] CypressYxtpjpkUMFTMEWFCX2090-25-37 01:56:00 Test Item Value Reference Range Interpretation Comments Monocytes # (test code 0.9 See_Comment H [Aut omated message] The = Monocytes #) system which generated this result tra nsmitted reference range : <=0.8. The reference r annemarie was not used to int erpret this result as normal/abnormal . [facility] CypressTkxppvrKXCCXGFTIB4177-40-15 01:56:00 Test Item Value Reference Range Interpretation Comments Lymphocytes # (test code = Lymphocytes 1.7 1.0-5.5 N #) [facility] CypressJwmpknuFIADPXDWBH8569-23-27 01:56:00 Test Item Value Reference Range Interpretation Comments Segs-Bands # (test code = Segs-Bands #) 9.2 1.5-8.1 H [facility] CypressZotdbrlPFXHVFFZMH0618-87-99 01:56:00 Test Item Value Reference Range Interpretation Comments Monocytes (test code = Monocytes) 8.0 2.0-12.0 N [facility]ressFxjasszBLRTAIMHBU9660-10-06 01:56:00 Test Item Value Reference Range Interpretation Comments Atypical Lymphs (test code = Atypical 0.0 N Lymphs) [facility]ressFzmfrjgEROETKOWRS8112-00-34 01:56:00 Test Item Value Reference Range Interpretation Comments Plt Morph (test code = Normal (12/28/2012 N Plt Morph) 20:56:00) [facility]fv[facility]jdSZKVHIEFK7121-29-72 01:56:00 Test Item Value Reference Range Interpretation Comments O2 Sat Frankie (test code = O2 Sat Frankie) 84.6 40.0-70.0 H [facility] HospitalMkorrtdJAFIWIOMY8581-72-16 01:56:00 Test Item Value Reference Range Interpretation Comments Temp Frankie (test code = Temp Frankie) 37.0 [facility]EsozzrhOKIAAOACE3547-76-71 01:56:00 Test Item Value Reference Range Interpretation Comments BE Frankie (test code = -4 See_Comment L [Automa abdelrahman message] The BE Frankie) system which ge nerated this result transmit abdelrahman reference range : <=2. The reference range was not used to interpr et this result as gurpreet l/abnormal. [facility] HospitalFiazlsiGXNXWPTWI6665-75-62 01:56:00 Test Item Value Reference Range Interpretation Comments HCO3 Frankie (test code = HCO3 Frankie) 20 22-26 L [facility] HospitalEfmsvzpXJCQZKXTP3927-00-58 01:56:00 Test Item Value Reference Range Interpretation Comments pO2 Frankie (test code = pO2 Frankie) 49 20-49 N [facility] HospitalRlrhgmrOGZCEBFTY0283-77-58 01:56:00 Test Item Value Reference Range Interpretation Comments pH Frankie (test code = pH Frankie) 7.41 7.28-7.42 N [facility] HospitalHbdlficCOKQIWWAG2920-99-78 01:56:00 Test Item Value Reference Range Interpretation Comments pCO2 Frankie (test code = pCO2 Frankie) 31 38-52 L [facility] HospitalRmwtfgiXJVZSQSKJ2355-19-18 01:56:00 Test Item Value Reference Range Interpretation Comments Lactic Acid Lvl (test code = Lactic 4.4 0.5-2.2 H Acid Lvl) [facility] HospitalVeughfgFFATWOGWB8139-25-86 01:56:00 Test Item Value Reference Range Interpretation Comments Ethanol Lvl (test code = Ethanol Lvl) 79 [facility] HospitalTpdkuvyKZDFDXULC6027-56-32 01:56:00 Test Item Value Reference Range Interpretation Comments Etoh (%) (test code = Etoh (%)) 0.079 [facility] HospitalEvjcpjaMVCXKBHZX8565-30-82 01:56:00 Test Item Value Reference Range Interpretation Comments eGFR (test code = eGFR) 93 [facility] HospitalAormqabESKTAUUFQ8702-59-50 01:56:00 Test Item Value Reference Range Interpretation Comments BUN (test code = BUN) 6 7-22 L [facility] HospitalKlumdxoOTIXGGXHQ3481-89-10 01:56:00 Test Item Value Reference Range Interpretation Comments Creatinine Lvl (test code = Creatinine 1.1 0.5-1.4 N Lvl) [facility] HospitalExnhxfuLAOIIHNAP6758-37-25 01:56:00 Test Item Value Reference Range Interpretation Comments Glucose Lvl (test code = Glucose Lvl) 124 70-99 H [facility] HospitalQxcecxmXAFWVHXGD9785-91-37 01:56:00 Test Item Value Reference Range Interpretation Comments Sodium Lvl (test code = Sodium Lvl) 140 135-145 N [facility] HospitalFanvlaoPVACYNFNT4107-80-24 01:56:00 Test Item Value Reference Range Interpretation Comments Chloride Lvl (test code = Chloride Lvl) 103 95-109 N [facility] HospitalEcirfuoULAXBSXGR1280-81-57 01:56:00 Test Item Value Reference Range Interpretation Comments CO2 (test code = CO2) 21 24-32 L [facility] HospitalMjuekmoZFAECRXIL5246-45-28 01:56:00 Test Item Value Reference Range Interpretation Comments Potassium Lvl (test code = Potassium 3.1 3.5-5.1 L Lvl) [facility] HospitalPvajnzhCIEBIBHMB7504-27-21 01:56:00 Test Item Value Reference Range Interpretation Comments Calcium Lvl (test code = Calcium Lvl) 8.6 8.5-10.5 N [facility] HospitalWwpmfhgZFULLWPNJ8178-87-26 01:56:00 Test Item Value Reference Range Interpretation Comments AGAP (test code = AGAP) 19.1 10.0-20.0 N [facility] CypressOytvessCCEHWTNYDZ4291-71-11 01:56:00 Test Item Value Reference Range Interpretation Comments Estimated % Lysis (test 1.3 See_Comment N [Au tomated message] The code = Estimated % system wh ich generated Lysis) this result tra nsmitted reference range : <=7.5. The reference r annemarie was not used to int erpret this result as normal/abnormal . [facility] CypressAicjsmdSCOYEXNPJZ2264-44-19 01:56:00 Test Item Value Reference Range Interpretation Comments K-time (test code = K-time) 2.2 min 0.6-2.3 N [facility] CypressNswdkzcDDYWKKGOAB1241-72-28 01:56:00 Test Item Value Reference Range Interpretation Comments Angle (test code = Angle) 64 degrees 64-80 N [facility] CypressIshzuwxKZUKNZAGJL7805-29-97 01:56:00 Test Item Value Reference Range Interpretation Comments Max Amp (test code = Max Amp) 58 mm 52-71 N [facility] CypressBxpiebtSUQGFGUOMD4360-39-32 01:56:00 Test Item Value Reference Range Interpretation Comments R-time (test code = R-time) 0.8 min 0.4-0.7 H [facility] CypressKfpphfpEKFKEVEQOH1306-29-79 01:56:00 Test Item Value Reference Range Interpretation Comments Split Point (test code = Split Point) 0.6 min [facility] CypressDywqskyTMEHUEFWSQ2148-25-82 01:56:00 Test Item Value Reference Range Interpretation Comments Rapid TEG Sample Type Citrated Whole Blood (test code = Rapid TEG Sample Type) [facility] CypressNkgdqzoBMQONLVMVS2922-49-59 01:56:00 Test Item Value Reference Range Interpretation Comments ACT (TEG) (test code = ACT (TEG)) 121 s 86-118 H [facility] CypressTpkorjwGRBXKMUYSJ2831-72-71 01:56:00 Test Item Value Reference Range Interpretation Comments G-value (test code = G-value) 6.9 5.0-11.6 N [facility] CypressGmkudejHULJWWPNUG0052-45-99 01:56:00 Test Item Value Reference Range Interpretation Comments Hgb (test code = Hgb) 14.8 14.0-18.0 N [facility] CypressEeunoltLNZPGYBBXI2206-63-61 01:56:00 Test Item Value Reference Range Interpretation Comments RBC (test code = RBC) 5.05 4.70-6.10 N [facility] CypressHaabtckHIZRIPKBOD2143-49-51 01:56:00 Test Item Value Reference Range Interpretation Comments Hct (test code = Hct) 44.5 42.0-54.0 N [facility] CypressJdgmayqVUFGUKTQTU4616-40-11 01:56:00 Test Item Value Reference Range Interpretation Comments WBC (test code = WBC) 11.8 3.7-10.4 H [facility] CypressCghiawpICONAUEQWO2568-61-82 01:56:00 Test Item Value Reference Range Interpretation Comments MPV (test code = MPV) 9.2 7.4-10.4 N [facility] CypressQcbbgmmRIJXAIPMRH4196-26-72 01:56:00 Test Item Value Reference Range Interpretation Comments MCHC (test code = MCHC) 33.2 32.0-36.0 N [facility] CypressFmcszhqNNVQAZWDEZ0034-83-19 01:56:00 Test Item Value Reference Range Interpretation Comments MCV (test code = MCV) 88.1 80.0-94.0 N [facility] CypressBfcqobnQQHRNVKCTP7914-90-03 01:56:00 Test Item Value Reference Range Interpretation Comments MCH (test code = MCH) 29.3 pg 27.0-31.0 N [facility] CypressYjmlqknGUMYQOAYCQ3831-54-10 01:56:00 Test Item Value Reference Range Interpretation Comments Platelet (test code = Platelet) 175 133-450 N [facility] CypressFdeyuksTYDRXYLRRL9692-54-29 01:56:00 Test Item Value Reference Range Interpretation Comments RDW (test code = RDW) 12.4 11.5-14.5 N [facility] CypressHiajcaiWISPWKJDBY0260-73-79 01:56:00 Test Item Value Reference Range Interpretation Comments Lymphocytes (test code = Lymphocytes) 14.0 20.0-40.0 L [facility] CypressUnkfttlELPIWKHRZM1873-76-35 01:56:00 Test Item Value Reference Range Interpretation Comments RBC Morph (test code = Normal (12/28/2012 N RBC Morph) 20:56:00) [facility] CypressLoiwdxaIBFKLQSSLV0845-89-74 01:56:00 Test Item Value Reference Range Interpretation Comments Bands (test code = 6.0 See_Comment N [Automat ed message] The Bands) system which ge nerated this result transmit abdelrahman reference range : <=11.0. The reference r annemarie was not used to interpr et this result as gurpreet l/abnormal. [facility] CypressGuknrdeRQPEFGHEHD3430-10-08 01:56:00 Test Item Value Reference Range Interpretation Comments Segs (test code = Segs) 72.0 45.0-75.0 N [facility] CypressQpbujjtXQBBCPMVIT5412-52-41 01:56:00 Test Item Value Reference Range Interpretation Comments Monocytes # (test code 0.9 See_Comment H [Aut omated message] The = Monocytes #) system which generated this result tra nsmitted reference range : <=0.8. The reference r annemarie was not used to int erpret this result as normal/abnormal . [facility] CypressSatrvzdTQBYHQOMXX1094-11-29 01:56:00 Test Item Value Reference Range Interpretation Comments Lymphocytes # (test code = Lymphocytes 1.7 1.0-5.5 N #) [facility] CypressVsyfeykBGXPGZZWOO0248-70-51 01:56:00 Test Item Value Reference Range Interpretation Comments Segs-Bands # (test code = Segs-Bands #) 9.2 1.5-8.1 H [facility] CypressToyotmiIAUDDNUWYC8643-93-47 01:56:00 Test Item Value Reference Range Interpretation Comments Monocytes (test code = Monocytes) 8.0 2.0-12.0 N [facility] CypressUpaigxjSUCIUCFPZK6154-05-75 01:56:00 Test Item Value Reference Range Interpretation Comments Atypical Lymphs (test code = Atypical 0.0 N Lymphs) [facility] CypressRzgmdbkRFXGOPLBEW5469-81-14 01:56:00 Test Item Value Reference Range Interpretation Comments Plt Morph (test code = Normal (12/28/2012 N Plt Morph) 20:56:00) [facility]
--- NOTE | 2022-06-07 15:29 | RAD REPORT ---
EXAM DESCRIPTION: RAD - Foot Left 3 View - 06/07/2022 3:10 pm CLINICAL HISTORY: foot pain COMPARISON: No comparisons FINDINGS: Mild soft tissue swelling is seen along the forefoot. No fracture, dislocation or aggressi ve bone lesion.
--- NOTE | 2022-06-07 15:30 | RAD REPORT ---
EXAM DESCRIPTION: RAD - Foot Right 3 View - 06/07/2022 3:10 pm CLINICAL HISTORY: foot pain COMPARISON: Foot Right 3 View dated 02/07/2022 FINDINGS: Mild soft tissue swelling is seen involving the forefoot. No fracture, dislocation or aggr essive marrow lesion.
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
[2022-06-07] MEDS ORDERED: DOXYCYCLINE 100 MG CAP PO ONE (16:37)
[2022-06-07 17:10] VITALS: BP 144/99; TEMP 98.9; O2SAT 100
== END 2022-06-07 16:56 | disposition home or self-care (01) ==
LOC: ER 13:11
DX: L03.032 Cellulitis of left toe (principal); F20.9 Schizophrenia, unspecified; F17.210 Nicotine dependence, cigarettes, uncomplicated; Z88.8 Allergy status to other drugs, medicaments and biological substances

== ENCOUNTER 2022-06-24 19:43 | Emergency (ER) | payer OTHER ==
--- OUTSIDE RECORDS SUMMARY | 2022-06-24 20:39 | XMS REPORT | Continuity of Care Document ---
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 2-14 Infuse l 04:02: over 4 Serena 00 hour. Do not infuse phosphorou s [...] 2-14 (Same as: l odium 04:02: Phos-NaK) Serena phosphate 00 Each 1.5 250 mg-280 gm pkt has mg-160 mg 250mg oral powder phosphorou for s. Mix reconstitut w/2.5oz ion water and stir. Calcium 2017-05 No Notes: Memoria Gluconate 2-14 WASTE: F/P l 04:02: - Sink; E Bryson 00 - Municipal Trash Bin Magnesium 2017-05 No Notes: Memori a Oxide 2-14 (Same as: l 04:02: Mag-Ox Bryson 00 400) Magnesium oxide 475md=412f g elemental magnesium Dose=____m g magnesium oxide (___mg elemental magnesium) Calcium 2017-05 No Notes: Memoria Carbonate 2-14 (Same As: l 500 MG 04:02: Tums) Bryson Chewable 00 Calcium Tablet Carbonate 500 mg = 200 mg elemental calcium Dose = mg calcium carbonate ( mg elemental calcium) Saline 2017-05 No Notes: Memoria Flush 0.9% 2-14 Same as: l 04:02: BD Serena 00 Posiflush Sterile Acetaminoph 2017-05 No Notes: Do M emoria en 2-14 not exceed l 04:02: 4 gm/day. Bryson 00 (Same as: Tylenol) Nystatin 2017-05 No Notes: Memoria 100 UNT/MG 2-14 (Same l Topical 04:02: as:Mycosta Herm boaz Powder 00 tin, Nilstat) For external use only. Potassium 2017-05 No Notes: Memori a Chloride 2-14 (Same as: l 04:02: KCL) Serena 00 Infuse no faster than 10 mEq/hr [...] WASTE: F/P l 04:02: - Sink; E Serena 00 - [employer] Trash Bin potassium 2017-05 No Notes: Memori a phosphate-s 2-14 (Same as: l odium 04:02: Phos-NaK) Bryson phosphate 00 Each 1.5 250 mg-280 gm pkt has mg-160 mg 250mg oral powder phosphorou for s. Mix reconstitut w/2.5oz ion water and stir. Calcium 2017-05 No Notes: Memoria Gluconate 2-14 WASTE: F/P l 04:02: - Sink; E Serena - [employer] Trash Bin Magnesium 2017-05 No Notes: Memori a Oxide 2-14 (Same as: l 04:02: Mag-Ox Bryson 00 400) Magnesium oxide 259qn=732e g elemental magnesium Dose=____m g magnesium oxide [...] phosphate 2-14 Infuse l 04:02: over 4 Serena 00 hour. Do not infuse phosphorou s [...] 04:02: Mag-Ox Bryson 00 400) Magnesium oxide 765ii=290g g elemental magnesium Dose=____m g magnesium oxide [...] 2-14 not exceed l 04:02: 4 gm/day. Serena (Same as: Tylenol) Nystatin 2017-05 No Notes: [...] WASTE: F/P l 04:02: - Sink; E Serena - [employer] Trash Bin Magnesium 2017-05 No Notes: Memori a Oxide 2-14 (Same as: l 04:02: Mag-Ox Bryson 00 400) Magnesium oxide 264pb=687g g elemental magnesium Dose=____m g magnesium oxide (___mg elemental magnesium) Calcium 2017-05 No Notes: Memoria Carbonate 2-14 (Same As: l 500 MG 04:02: Tums) Serena Chewable 00 Calcium Tablet Carbonate 500 mg = 200 mg elemental calcium Dose = mg calcium carbonate ( mg elemental calcium) Saline 2017-05 No Notes: Memoria Flush 0.9% 2-14 Same as: l 04:02: BD Bryson 00 Posiflush Sterile Acetaminoph 2017-05 No Notes: Do M emoria en 2-14 not exceed l 04:02: 4 gm/day. Serena 00 (Same as: Tylenol) Nystatin 2017-05 No Notes: Memoria 100 UNT/MG 2-14 (Same l Topical 04:02: as:Mycosta Herm boaz Powder 00 tin, Nilstat) For external use only. Potassium 2017-05 No Notes: Memori a Chloride 2-14 (Same as: l 04:02: KCL) Serena 00 Infuse no faster than 10 mEq/hr [...] 2-14 (Same as: l odium 04:02: Phos-NaK) Serena phosphate 00 Each 1.5 250 mg-280 gm pkt has mg-160 mg 250mg oral powder phosphorou for s. Mix reconstitut w/2.5oz ion water and stir. Calcium 2017-05 No Notes: Memoria Gluconate 2-14 WASTE: F/P l 04:02: - Sink; E - [employer] Trash Bin Magnesium 2017-05 No Notes: Memori a Oxide 2-14 (Same as: l 04:02: Mag-Ox Serena 00 400) Magnesium oxide 866gb=277r g elemental magnesium Dose=____m g magnesium oxide (___mg elemental magnesium) Calcium 2017-05 No Notes: Memoria Carbonate 2-14 (Same As: l 500 MG 04:02: Tums) Serena Chewable 00 Calcium Tablet Carbonate 500 mg = 200 mg elemental calcium Dose = mg calcium carbonate ( mg elemental calcium) Saline 2017-05 No Notes: Memoria Flush 0.9% 2-14 Same as: l 04:02: BD Serena 00 Posiflush Sterile Acetaminoph 2017-05 No Notes: Do M emoria en 2-14 not exceed l 04:02: 4 gm/day. Serena 00 (Same as: Tylenol) Nystatin 2017-05 No [...] phosphate 2-14 Infuse l 04:02: over 4 Serena 00 hour. Do not infuse phosphorou s concurrent ly in the same line as TPN or IVF that contains calcium. For double lumen central lines, phosphorou s may be infused in a separate lumen from TPN. potassium 2017-05 No Notes: Memori a phosphate 2-14 (Same as: l 04:02: K Serena 00 Phosphate. ) Do not infuse phosphorou s concurrent ly in the same line as TPN or IVF that contains calcium. For double lumen central lines, phosphorou s may be infused in a separate lumen from TPN. 1 mMol phoshate has 1.47 mEq potassium Infuse over 4 hours Magnesium 2017-05 No Notes: Memori a Sulfate 2-14 WASTE: F/P l 04:02: - Sink; E Serena 00 - [employer] Trash Bin potassium 2017-05 No Notes: Memori a phosphate-s 2-14 (Same as: l odium 04:02: Phos-NaK) Serena phosphate 00 Each 1.5 250 mg-280 gm pkt has mg-160 mg 250mg oral powder phosphorou for s. Mix reconstitut w/2.5oz ion water and stir. Calcium 2017-05 No Notes: Memoria Gluconate 2-14 WASTE: F/P l 04:02: - Sink; E Bryson 00 - [employer] Trash Bin Magnesium 2017-05 No Notes: Memori a Oxide 2-14 (Same as: l 04:02: Mag-Ox Serena 00 400) Magnesium oxide 190ne=478q g elemental magnesium Dose=____m g magnesium oxide [...] 2-14 not exceed l 04:02: 4 gm/day. Serena 00 (Same as: Tylenol) Nystatin 2017-05 No [...] phosphate 2-14 (Same as: l 04:02: K Serena 00 Phosphate. ) Do not infuse phosphorou [...] 04:02: Mag-Ox Bryson 00 400) Magnesium oxide 143ai=021f g elemental magnesium Dose=____m g magnesium oxide (___mg elemental magnesium) Calcium 2017-05 No Notes: Memoria Carbonate 2-14 (Same As: l 500 MG 04:02: Tums) Bryson Chewable 00 Calcium Tablet Carbonate 500 mg = 200 mg elemental calcium Dose = mg calcium carbonate ( mg elemental calcium) Saline 2017-05 No Notes: Memoria Flush 0.9% 2-14 Same as: l 04:02: BD Serena 00 Posiflush Sterile Acetaminoph 2017-05 No Notes: [...] Weight 54.091, kg, Start date: 04/12/18 21:26:00 JANITORIAL TECH, Stop date: 04/12/18 21:26:00 JANITORIAL TECH Keppra 2017-05 No 1,000 mg, Memori a 2-14 Route: l 03:26: IVPB, Serena 00 ONCE, Dosing Weight 54.091, kg, Start date: 04/12/18 21:26:00 JANITORIAL TECH, Stop date: 04/12/18 21:26:00 JANITORIAL TECH Keppra 2017- No 1,000 mg, Memori a 2-14 Route: l 03:26: IVPB, Serena 00 ONCE, Dosing Weight 54.091, kg, Start date: 04/12/18 21:26:00 JANITORIAL TECH, Stop date: 04/12/18 21:26:00 JANITORIAL TECH Keppra 2018-1 No 1,000 mg, Memori a 2-14 Route: l 03:26: IVPB, Bryson 00 ONCE, Dosing Weight 54.091, kg, Start date: 04/12/18 21:26:00 JANITORIAL TECH, Stop date: 04/12/18 21:26:00 JANITORIAL TECH Keppra 2018- No 1,000 mg, Memori a 2-14 Route: l 03:26: IVPB, Serena 00 ONCE, Dosing Weight 54.091, kg, Start date: 04/12/18 21:26:00 JANITORIAL TECH, Stop date: 04/12/18 21:26:00 JANITORIAL TECH Keppra 2018-1 No 1,000 mg, Memori a 2-14 Route: l 03:26: IVPB, Serena 00 ONCE, Dosing Weight 54.091, kg, Start date: 04/12/18 21:26:00 JANITORIAL TECH, Stop date: 04/12/18 21:26:00 JANITORIAL TECH Keppra 2018-1 No 1,000 mg, Memori a 2-14 Route: l 03:26: IVPB, Serena 00 ONCE, Dosing Weight 54.091, kg, Start date: 04/12/18 21:26:00 JANITORIAL TECH, Stop date: 04/12/18 21:26:00 JANITORIAL TECH Keppra 2018-1 No 1,000 mg, Memori a 2-14 Route: l 03:26: IVPB, Serena 00 ONCE, Dosing Weight 54.091, kg, Start date: 04/12/18 21:26:00 JANITORIAL TECH, Stop date: 04/12/18 21:26:00 JANITORIAL TECH acetaminoph 2017-05 No Notes: Do M emoria en-codeine 2-14 not exceed l #3 02:03: 4gm/day of Serena 00 acetaminop hen. (Same as: Tylenol with Codeine # 3) acetaminoph 2017-05 No Notes: Do M emoria en-codeine 2-14 not exceed l #3 02:03: 4gm/day of Bryson 00 acetaminop hen. (Same as: Tylenol with Codeine # 3) acetaminoph 2017-05 No Notes: Do M emoria en-codeine 2-14 not exceed l #3 02:03: 4gm/day of Serena 00 acetaminop hen. (Same as: Tylenol with Codeine # 3) acetaminoph 2017-05 No Notes: Do M emoria en-codeine 2-14 not exceed l #3 02:03: 4gm/day of Serena 00 acetaminop hen. (Same as: Tylenol with Codeine # 3) acetaminoph 2017-05 No Notes: Do M emoria en-codeine 2-14 not exceed l #3 02:03: 4gm/day of Bryson 00 acetaminop hen. (Same as: Tylenol with Codeine # 3) acetaminoph 2017-05 No Notes: Do M emoria en-codeine 2-14 not exceed l #3 02:03: 4gm/day of Serena 00 acetaminop hen. (Same as: Tylenol with Codeine # 3) acetaminoph 2017-05 No Notes: Do M emoria en-codeine 2-14 not exceed l #3 02:03: 4gm/day of Bryson 00 acetaminop hen. (Same as: Tylenol with Codeine # 3) acetaminoph 2017-05 No Notes: Do M emoria en-codeine 2-14 not exceed l #3 02:03: 4gm/day of Serena 00 acetaminop hen. (Same as: Tylenol with Codeine # 3) Sodium 2017-05 No 1,000 mL, Memori a Chloride 2-14 Infuse l 0.9% 00:47: Over: 1 Serena (Bolus) IV 00 hr, Route: IV, ONCE, Priority: STAT, Dosing Weight 54.091 kg, Start date: 04/12/18 18:47:00 JANITORIAL TECH, Stop date: 04/12/18 18:47:00 JANITORIAL TECH Sodium 2017-05 No 1,000 mL, Memori a Chloride 2-14 Infuse l 0.9% 00:47: Over: 1 Bryson (Bolus) IV 00 hr, Route: IV, ONCE, Priority: STAT, Dosing Weight 54.091 kg, Start date: 04/12/18 18:47:00 JANITORIAL TECH, Stop date: 04/12/18 18:47:00 JANITORIAL TECH Sodium 2018-1 No 1,000 mL, Memori a Chloride 2-14 Infuse l 0.9% 00:47: Over: 1 Bryson (Bolus) IV 00 hr, Route: IV, ONCE, Priority: STAT, Dosing Weight 54.091 kg, Start date: 04/12/18 18:47:00 JANITORIAL TECH, Stop date: 04/12/18 18:47:00 JANITORIAL TECH Sodium 2018-1 No 1,000 mL, Memori a Chloride 2-14 Infuse l 0.9% 00:47: Over: 1 Serena (Bolus) IV 00 hr, Route: IV, ONCE, Priority: STAT, Dosing Weight 54.091 kg, Start date: 04/12/18 18:47:00 JANITORIAL TECH, Stop date: 04/12/18 18:47:00 JANITORIAL TECH Sodium 2018-1 No 1,000 mL, Memori a Chloride 2-14 Infuse l 0.9% 00:47: Over: 1 Bryson (Bolus) IV 00 hr, Route: IV, ONCE, Priority: STAT, Dosing Weight 54.091 kg, Start date: 04/12/18 18:47:00 JANITORIAL TECH, Stop date: 04/12/18 18:47:00 JANITORIAL TECH Sodium 2018-1 No 1,000 mL, Memori a Chloride 2-14 Infuse l 0.9% 00:47: Over: 1 Bryson (Bolus) IV 00 hr, Route: IV, ONCE, Priority: STAT, Dosing Weight 54.091 kg, Start date: 04/12/18 18:47:00 JANITORIAL TECH, Stop date: 04/12/18 18:47:00 JANITORIAL TECH Sodium 2018-1 No 1,000 mL, Memori a Chloride 2-14 Infuse l 0.9% 00:47: Over: 1 Bryson (Bolus) IV 00 hr, Route: IV, ONCE, Priority: STAT, Dosing Weight 54.091 kg, Start date: 04/12/18 18:47:00 JANITORIAL TECH, Stop date: 04/12/18 18:47:00 JANITORIAL TECH Sodium 2018-1 No 1,000 mL, Memori a Chloride 2-14 Infuse l 0.9% 00:47: Over: 1 Serena (Bolus) IV 00 hr, Route: IV, ONCE, Priority: STAT, Dosing Weight 54.091 kg, Start date: 04/12/18 18:47:00 JANITORIAL TECH, Stop date: 04/12/18 18:47:00 JANITORIAL TECH Ibuprofen 2017-0 No 600 mg, Memor ia 1- Route: PO, l 05:32: Drug form: Bryson 00 TAB, ONCE, Dosing Weight 54.545, kg, Priority: STAT, Start date: 04/30/16 23:32:00 JANITORIAL TECH, Stop date: 04/30/16 23:32:00 JANITORIAL TECH Ibuprofen 2017-0 No 600 mg, Memor ia 1- Route: PO, l 05:32: Drug form: Bryson 00 TAB, ONCE, Dosing Weight 54.545, kg, Priority: STAT, Start date: 04/30/16 23:32:00 JANITORIAL TECH, Stop date: 04/30/16 23:32:00 JANITORIAL TECH Ibuprofen 2017-0 No 600 mg, Memor ia 05-01 Route: PO, l 05:32: Drug form: Serena 00 TAB, ONCE, Dosing Weight 54.545, kg, Priority: STAT, Start date: 04/30/16 23:32:00 JANITORIAL TECH, Stop date: 04/30/16 23:32:00 JANITORIAL TECH Ibuprofen 2017-0 No 600 mg, Memor ia 1- Route: PO, l 05:32: Drug form: Bryson 00 TAB, ONCE, Dosing Weight 54.545, kg, Priority: STAT, Start date: 04/30/16 23:32:00 JANITORIAL TECH, Stop date: 04/30/16 23:32:00 JANITORIAL TECH Ibuprofen 2017-0 No 600 mg, Memor ia 1- Route: PO, l 05:32: Drug form: Bryson 00 TAB, ONCE, Dosing Weight 54.545, kg, Priority: STAT, Start date: 04/30/16 23:32:00 JANITORIAL TECH, Stop date: 04/30/16 23:32:00 JANITORIAL TECH Ibuprofen 2017-0 No 600 mg, Memor ia 1- Route: PO, l 05:32: Drug form: Bryson 00 TAB, ONCE, Dosing Weight 54.545, kg, Priority: STAT, Start date: 04/30/16 23:32:00 JANITORIAL TECH, Stop date: 04/30/16 23:32:00 JANITORIAL TECH Ibuprofen 2017-0 No 600 mg, Memor ia 1- Route: PO, l 05:32: Drug form: Serena 00 TAB, ONCE, Dosing Weight 54.545, kg, Priority: STAT, Start date: 04/30/16 23:32:00 JANITORIAL TECH, Stop date: 04/30/16 23:32:00 JANITORIAL TECH Ibuprofen 2017-0 No 600 mg, Memor ia 1- Route: PO, l 05:32: Drug form: Bryson 00 TAB, ONCE, Dosing Weight 54.545, kg, Priority: STAT, Start date: 04/30/16 23:32:00 JANITORIAL TECH, Stop date: 04/30/16 23:32:00 JANITORIAL TECH Sodium 2017-0 No 1,000 mL, Memori a Chloride 1-01 1,000 l 0.154 04:38: ml/hr, Serena MEQ/ML 00 Infuse Injectable Over: 1 Solution hr, Route: IV, 1,000, Drug form: INJ, ONCE, Priority: STAT, Dosing Weight 54.545 kg, Start date: 04/30/16 22:38:00 JANITORIAL TECH, Duration: 1 doses or times, Stop date: 04/30/16 22:38:00 JANITORIAL TECH Sodium 2017-0 No 1,000 mL, Memori a Chloride 1-01 1,000 l 0.154 04:38: ml/hr, Serena MEQ/ML 00 Infuse Injectable Over: 1 Solution hr, Route: IV, 1,000, Drug form: INJ, ONCE, Priority: STAT, Dosing Weight 54.545 kg, Start date: 04/30/16 22:38:00 JANITORIAL TECH, Duration: 1 doses or times, Stop date: 04/30/16 22:38:00 JANITORIAL TECH Sodium 2017-0 No 1,000 mL, Memori a Chloride 1-01 1,000 l 0.154 04:38: ml/hr, Bryson MEQ/ML 00 Infuse Injectable Over: 1 Solution hr, Route: IV, 1,000, Drug form: INJ, ONCE, Priority: STAT, Dosing Weight 54.545 kg, Start date: 04/30/16 22:38:00 JANITORIAL TECH, Duration: 1 doses or times, Stop date: 04/30/16 22:38:00 JANITORIAL TECH Sodium 2017-0 No 1,000 mL, Memori a Chloride 1-01 1,000 l 0.154 04:38: ml/hr, Serena MEQ/ML 00 Infuse Injectable Over: 1 Solution hr, Route: IV, 1,000, Drug form: INJ, ONCE, Priority: STAT, Dosing Weight 54.545 kg, Start date: 04/30/16 22:38:00 JANITORIAL TECH, Duration: 1 doses or times, Stop date: 04/30/16 22:38:00 JANITORIAL TECH Sodium 2017-0 No 1,000 mL, Memori a Chloride 1-01 1,000 l 0.154 04:38: ml/hr, Bryson MEQ/ML 00 Infuse Injectable Over: 1 Solution hr, Route: IV, 1,000, Drug form: INJ, ONCE, Priority: STAT, Dosing Weight 54.545 kg, Start date: 04/30/16 22:38:00 JANITORIAL TECH, Duration: 1 doses or times, Stop date: 04/30/16 22:38:00 JANITORIAL TECH Sodium 2017-0 No 1,000 mL, Memori a Chloride 1-01 1,000 l 0.154 04:38: ml/hr, Bryson MEQ/ML 00 Infuse Injectable Over: 1 Solution hr, Route: IV, 1,000, Drug form: INJ, ONCE, Priority: STAT, Dosing Weight 54.545 kg, Start date: 04/30/16 22:38:00 JANITORIAL TECH, Duration: 1 doses or times, Stop date: 04/30/16 22:38:00 JANITORIAL TECH Sodium 2017-0 No 1,000 mL, Memori a Chloride 1-01 1,000 l 0.154 04:38: ml/hr, Bryson MEQ/ML 00 Infuse Injectable Over: 1 Solution hr, Route: IV, 1,000, Drug form: INJ, ONCE, Priority: STAT, Dosing Weight 54.545 kg, Start date: 04/30/16 22:38:00 JANITORIAL TECH, Duration: 1 doses or times, Stop date: 04/30/16 22:38:00 JANITORIAL TECH Sodium 2017-0 No 1,000 mL, Memori a Chloride 1-01 1,000 l 0.154 04:38: ml/hr, Bryson MEQ/ML 00 Infuse Injectable Over: 1 Solution hr, Route: IV, 1,000, Drug form: INJ, ONCE, Priority: STAT, Dosing Weight 54.545 kg, Start date: 04/30/16 22:38:00 JANITORIAL TECH, Duration: 1 doses or times, Stop date: 04/30/16 22:38:00 JANITORIAL TECH Sodium 2017-0 No 25 mL, Memoria Chloride 05-01 Route: IV, l 0.9% IV 02:29: Start date: 04/30/16 20:29:00 JANITORIAL TECH, Duration: 30 day, Stop date: 05/30/16 20:28:00 JANITORIAL TECH, PRN Line Flush BD Normal 0 No Notes: Memori a Saline 05-01 (Same as: l Flush 02:29: BD Serena Posiflush) Sodium 2016-0 No 25 mL, Memoria Chloride 05-01 Route: IV, l 0.9% IV 02:29: Start date: 04/30/16 20:29:00 JANITORIAL TECH, Duration: 30 day, Stop date: 05/30/16 20:28:00 JANITORIAL TECH, PRN Line Flush BD Normal No Notes: Memori a Saline 05-01 (Same as: l Flush 02:29: BD Bryson Posiflush) Sodium 2016-0 No 25 mL, Memoria Chloride 05-01 Route: IV, l 0.9% IV 02:29: Start date: 04/30/16 20:29:00 JANITORIAL TECH, Duration: 30 day, Stop date: 05/30/16 20:28:00 JANITORIAL TECH, PRN Line Flush BD Normal 2016-0 No Notes: Memori a Saline 05-01 (Same as: l Flush 02:29: BD Bryson Posiflush) Sodium 2016-0 No 25 mL, Memoria Chloride 05-01 Route: IV, l 0.9% IV 02:29: Start date: 04/30/16 20:29:00 JANITORIAL TECH, Duration: 30 day, Stop date: 05/30/16 20:28:00 JANITORIAL TECH, PRN Line Flush BD Normal 2016-0 No Notes: Memori a Saline - (Same as: l Flush 02:29: BD Serena Posiflush) Sodium 2016-0 No 25 mL, Memoria Chloride 05-01 Route: IV, l 0.9% IV 02:29: Start date: 04/30/16 20:29:00 JANITORIAL TECH, Duration: 30 day, Stop date: 05/30/16 20:28:00 JANITORIAL TECH, PRN Line Flush BD Normal 2017-0 No Notes: Memori a Saline - (Same as: l Flush 02:29: BD Bryson Posiflush) Sodium 2016-0 No 25 mL, Memoria Chloride 05-01 Route: IV, l 0.9% IV 02:29: Start Serena 00 date: 04/30/16 20:29:00 JANITORIAL TECH, Duration: 30 day, Stop date: 05/30/16 20:28:00 JANITORIAL TECH, PRN Line Flush BD Normal 2017-0 No Notes: Memori a Saline - (Same as: l Flush 02:29: BD Bryson Posiflush) Sodium 2016-0 No 25 mL, Memoria Chloride 05-01 Route: IV, l 0.9% IV 02:29: Start Bryson 00 date: 04/30/16 20:29:00 JANITORIAL TECH, Duration: 30 day, Stop date: 05/30/16 20:28:00 JANITORIAL TECH, PRN Line Flush BD Normal 2017-0 No Notes: Memori a Saline - (Same as: l Flush 02:29: BD Serena Posiflush) Sodium 2016-0 No 25 mL, Memoria Chloride 05-01 Route: IV, l 0.9% IV 02:29: Start Bryson 00 date: 04/30/16 20:29:00 JANITORIAL TECH, Duration: 30 day, Stop date: 05/30/16 20:28:00 JANITORIAL TECH, PRN Line Flush BD Normal 2017-0 No Notes: Memori a Saline - (Same as: l Flush 02:29: BD Bryson 00 Posiflush) Sodium 2016-0 No 1,000 mL, Memori a Chloride 05-01 1,000 l 0.154 02:19: ml/hr, Serena MEQ/ML 00 Infuse Injectable Over: 1 Solution hr, Route: IV, 1,000, Drug form: INJ, ONCE, Priority: STAT, Dosing Weight 54.545 kg, Start date: 04/30/16 20:19:00 JANITORIAL TECH, Duration: 1 doses or times, Stop date: 04/30/16 20:19:00 JANITORIAL TECH Sodium 2017-0 No 1,000 mL, Memori a Chloride 1-01 1,000 l 0.154 02:19: ml/hr, Bryson MEQ/ML 00 Infuse Injectable Over: 1 Solution hr, Route: IV, 1,000, Drug form: INJ, ONCE, Priority: STAT, Dosing Weight 54.545 kg, Start date: 04/30/16 20:19:00 JANITORIAL TECH, Duration: 1 doses or times, Stop date: 04/30/16 20:19:00 JANITORIAL TECH Sodium 2017-0 No 1,000 mL, Memori a Chloride 1-01 1,000 l 0.154 02:19: ml/hr, Serena MEQ/ML 00 Infuse Injectable Over: 1 Solution hr, Route: IV, 1,000, Drug form: INJ, ONCE, Priority: STAT, Dosing Weight 54.545 kg, Start date: 04/30/16 20:19:00 JANITORIAL TECH, Duration: 1 doses or times, Stop date: 04/30/16 20:19:00 JANITORIAL TECH Sodium 2017-0 No 1,000 mL, Memori a Chloride 1-01 1,000 l 0.154 02:19: ml/hr, Bryson MEQ/ML 00 Infuse Injectable Over: 1 Solution hr, Route: IV, 1,000, Drug form: INJ, ONCE, Priority: STAT, Dosing Weight 54.545 kg, Start date: 04/30/16 20:19:00 JANITORIAL TECH, Duration: 1 doses or times, Stop date: 04/30/16 20:19:00 JANITORIAL TECH Sodium 2017-0 No 1,000 mL, Memori a Chloride 1-01 1,000 l 0.154 02:19: ml/hr, Serena MEQ/ML 00 Infuse Injectable Over: 1 Solution hr, Route: IV, 1,000, Drug form: INJ, ONCE, Priority: STAT, Dosing Weight 54.545 kg, Start date: 04/30/16 20:19:00 JANITORIAL TECH, Duration: 1 doses or times, Stop date: 04/30/16 20:19:00 JANITORIAL TECH Sodium 2017-0 No 1,000 mL, Memori a Chloride 1-01 1,000 l 0.154 02:19: ml/hr, Bryson MEQ/ML 00 Infuse Injectable Over: 1 Solution hr, Route: IV, 1,000, Drug form: INJ, ONCE, Priority: STAT, Dosing Weight 54.545 kg, Start date: 04/30/16 20:19:00 JANITORIAL TECH, Duration: 1 doses or times, Stop date: 04/30/16 20:19:00 JANITORIAL TECH Sodium 2017-0 No 1,000 mL, Memori a Chloride 1-01 1,000 l 0.154 02:19: ml/hr, Serena MEQ/ML 00 Infuse Injectable Over: 1 Solution hr, Route: IV, 1,000, Drug form: INJ, ONCE, Priority: STAT, Dosing Weight 54.545 kg, Start date: 04/30/16 20:19:00 JANITORIAL TECH, Duration: 1 doses or times, Stop date: 04/30/16 20:19:00 JANITORIAL TECH Sodium 2017-0 No 1,000 mL, Memori a Chloride 1-01 1,000 l 0.154 02:19: ml/hr, Serena MEQ/ML 00 Infuse Injectable Over: 1 Solution hr, Route: IV, 1,000, Drug form: INJ, ONCE, Priority: STAT, Dosing Weight 54.545 kg, Start date: 04/30/16 20:19:00 JANITORIAL TECH, Duration: 1 doses or times, Stop date: 04/30/16 20:19:00 JANITORIAL TECH tramadol 2015-05 Yes 50 mg = 1 Magdaleno pilo hydrochlori 2-31 tab, PO, l de 50 MG 12:50: Q6H, PRN Karley nn Oral Tablet 00 Pain, X 10 day, # 40 tab, 0 Refill(s) Metoclopram 2015-05 Yes 5 mg = 1 Me moria britatny 5 MG 2-31 tab, PO, l Oral Tablet 12:50: QID, PRN Dwight rmann [Reglan] 00 Headache 6-10, X 7 [...] 0.9% IV 11:21: Start date: 04/30/16 5:21:00 JANITORIAL TECH, Duration: 30 day, Stop date: 05/30/16 5:20:00 JANITORIAL TECH, PRN Line Flush BD Normal 2015-05 No Notes: Memori a Saline -31 (Same as: l Flush 11:21: Posiflush) Sodium 2015-05 No 25 mL, Memoria Chloride 31 Route: IV, l 0.9% IV 11:21: Start date: 04/30/16 5:21:00 JANITORIAL TECH, Duration: 30 day, Stop date: 05/30/16 5:20:00 JANITORIAL TECH, PRN Line Flush BD Normal 2015-05 No Notes: Memori a Saline 2-31 (Same as: l Flush 11:21: BD Bryson 00 Posiflush) Sodium 2015-05 No 25 mL, Memoria Chloride 2-31 Route: IV, l 0.9% IV 11:21: Start Bryson 00 date: 04/30/16 5:21:00 JANITORIAL TECH, Duration: 30 day, Stop date: 05/30/16 5:20:00 JANITORIAL TECH, PRN Line Flush BD Normal 2015-05 No Notes: Memori a Saline 2-31 (Same as: l Flush 11:21: BD Serena 00 Posiflush) Sodium 2015-05 No 25 mL, Memoria Chloride 2-31 Route: IV, l 0.9% IV 11:21: Start Bryson date: 04/30/16 5:21:00 JANITORIAL TECH, Duration: 30 day, Stop date: 05/30/16 5:20:00 JANITORIAL TECH, PRN Line Flush BD Normal 2015-05 No Notes: Memori a Saline 2-31 (Same as: l Flush 11:21: BD Bryson Posiflush) Sodium 2015-05 No 25 mL, Memoria Chloride 2-31 Route: IV, l 0.9% IV 11:21: Start Bryson date: 04/30/16 5:21:00 JANITORIAL TECH, Duration: 30 day, Stop date: 05/30/16 5:20:00 JANITORIAL TECH, PRN Line Flush BD Normal 2015-05 No Notes: Memori a Saline 2-31 (Same as: l Flush 11:21: BD Serena Posiflush) Sodium 2015-05 No 25 mL, Memoria Chloride 2-31 Route: IV, l 0.9% IV 11:21: Start Serena 00 date: 04/30/16 5:21:00 JANITORIAL TECH, Duration: 30 day, Stop date: 05/30/16 5:20:00 JANITORIAL TECH, PRN Line Flush BD Normal 2015-05 No Notes: Memori a Saline 2-31 (Same as: l Flush 11:21: BD Serena 00 Posiflush) Sodium 2015-05 No 25 mL, Memoria Chloride 2-31 Route: IV, l 0.9% IV 11:21: Start Serena 00 date: 04/30/16 5:21:00 JANITORIAL TECH, Duration: 30 day, Stop date: 05/30/16 5:20:00 JANITORIAL TECH, PRN Line Flush BD Normal 2015- No Notes: Memori a Saline 2-31 (Same as: l Flush 11:21: BD Posiflush) Sodium 2015-05 No 25 mL, Memoria Chloride 2 Route: IV, l 0.9% IV 11:21: Start date: 04/30/16 5:21:00 JANITORIAL TECH, Duration: 30 day, Stop date: 05/30/16 5:20:00 JANITORIAL TECH, PRN Line Flush BD Normal 2015- No Notes: Memori a Saline 2-31 (Same as: l Flush 11:21: BD Posiflush) Motrin 2015- No 800 mg, 1 Memori a 2-31 tab, l 11:19: Route: PO, Bryson 00 Drug form: TAB, ONCE, Dosing Weight 54.545, kg, Priority: STAT, Start date: 04/30/16 5:19:00 JANITORIAL TECH, Stop date: 04/30/16 5:19:00 JANITORIAL TECH Motrin 2015- No 800 mg, 1 Memori a 2-31 tab, l 11:19: Route: PO, Bryson 00 Drug form: TAB, ONCE, Dosing Weight 54.545, kg, Priority: STAT, Start date: 04/30/16 5:19:00 JANITORIAL TECH, Stop date: 04/30/16 5:19:00 JANITORIAL TECH Motrin 2015- No 800 mg, 1 Memori a 2-31 tab, l 11:19: Route: PO, Bryson 00 Drug form: TAB, ONCE, Dosing Weight 54.545, kg, Priority: STAT, Start date: 04/30/16 5:19:00 JANITORIAL TECH, Stop date: 04/30/16 5:19:00 JANITORIAL TECH Motrin 2015-1 No 800 mg, 1 Memori a 2-31 tab, l 11:19: Route: PO, Serena 00 Drug form: TAB, ONCE, Dosing Weight 54.545, kg, Priority: STAT, Start date: 04/30/16 5:19:00 JANITORIAL TECH, Stop date: 04/30/16 5:19:00 JANITORIAL TECH Motrin 2015- No 800 mg, 1 Memori a 2-31 tab, l 11:19: Route: PO, Serena 00 Drug form: TAB, ONCE, Dosing Weight 54.545, kg, Priority: STAT, Start date: 04/30/16 5:19:00 JANITORIAL TECH, Stop date: 04/30/16 5:19:00 JANITORIAL TECH Motrin 2015- No 800 mg, 1 Memori a 2-31 tab, l 11:19: Route: PO, Serena 00 Drug form: TAB, ONCE, Dosing Weight 54.545, kg, Priority: STAT, Start date: 04/30/16 5:19:00 JANITORIAL TECH, Stop date: 04/30/16 5:19:00 JANITORIAL TECH Motrin 2016- No 800 mg, 1 Memori a 2-31 tab, l 11:19: Route: PO, Drug form: TAB, ONCE, Dosing Weight 54.545, kg, Priority: STAT, Start date: 04/30/16 5:19:00 JANITORIAL TECH, Stop date: 04/30/16 5:19:00 JANITORIAL TECH Motrin 2015-05 No 800 mg, 1 Memori a 2-31 tab, l 11:19: Route: PO, Drug form: TAB, ONCE, Dosing Weight 54.545, kg, Priority: STAT, Start date: 04/30/16 5:19:00 JANITORIAL TECH, Stop date: 04/30/16 5:19:00 JANITORIAL TECH Sodium 2015-05 No 25 mL, Memoria Chloride 2- Route: IV, l 0.9% IV 11:07: Start date: 04/30/16 5:07:00 JANITORIAL TECH, Duration: 30 day, Stop date: 05/30/16 5:06:00 JANITORIAL TECH, PRN Line Flush BD Normal 2015-05 No Notes: Memori a Saline 2-31 (Same as: l Flush 11:07: BD Serena 00 Posiflush) Sodium 2015-05 No 25 mL, Memoria Chloride 2-31 Route: IV, l 0.9% IV 11:07: Start date: 04/30/16 5:07:00 JANITORIAL TECH, Duration: 30 day, Stop date: 05/30/16 5:06:00 JANITORIAL TECH, PRN Line Flush BD Normal 2015- No Notes: Memori a Saline 2-31 (Same as: l Flush 11:07: BD Serena Posiflush) Sodium 2015-05 No 25 mL, Memoria Chloride 2-31 Route: IV, l 0.9% IV 11:07: Start Bryson 00 date: 04/30/16 5:07:00 JANITORIAL TECH, Duration: 30 day, Stop date: 05/30/16 5:06:00 JANITORIAL TECH, PRN Line Flush BD Normal 2015-05 No Notes: Memori a Saline 2-31 (Same as: l Flush 11:07: BD Serena Posiflush) Sodium 2015-05 No 25 mL, Memoria Chloride 2-31 Route: IV, l 0.9% IV 11:07: Start Serena 00 date: 04/30/16 5:07:00 JANITORIAL TECH, Duration: 30 day, Stop date: 05/30/16 5:06:00 JANITORIAL TECH, PRN Line Flush BD Normal 2015-05 No Notes: Memori a Saline 2-31 (Same as: l Flush 11:07: BD Bryson Posiflush) Sodium 2015-05 No 25 mL, Memoria Chloride 2-31 Route: IV, l 0.9% IV 11:07: Start date: 04/30/16 5:07:00 JANITORIAL TECH, Duration: 30 day, Stop date: 05/30/16 5:06:00 JANITORIAL TECH, PRN Line Flush BD Normal 2015-05 No Notes: Memori a Saline 2-31 (Same as: l Flush 11:07: BD Serena Posiflush) Sodium 2015-05 No 25 mL, Memoria Chloride 2-31 Route: IV, l 0.9% IV 11:07: Start date: 04/30/16 5:07:00 JANITORIAL TECH, Duration: 30 day, Stop date: 05/30/16 5:06:00 JANITORIAL TECH, PRN Line Flush BD Normal 2015-05 No Notes: Memori a Saline 2-31 (Same as: l Flush 11:07: BD Serena 00 Posiflush) Sodium 2015-05 No 25 mL, Memoria Chloride 2-31 Route: IV, l 0.9% IV 11:07: Start Bryson 00 date: 04/30/16 5:07:00 JANITORIAL TECH, Duration: 30 day, Stop date: 05/30/16 5:06:00 JANITORIAL TECH, PRN Line Flush BD Normal 2015-05 No Notes: Memori a Saline 2-31 (Same as: l Flush 11:07: BD Serena 00 Posiflush) Sodium 2015-05 No 25 mL, Memoria Chloride 2-31 Route: IV, l 0.9% IV 11:07: Start Bryson 00 date: 04/30/16 5:07:00 JANITORIAL TECH, Duration: 30 day, Stop date: 05/30/16 5:06:00 JANITORIAL TECH, PRN Line Flush BD Normal 2015-05 No Notes: Memori a Saline 2-31 (Same as: l Flush 11:07: BD Serena 00 Posiflush) Sodium 2015-05 No 1,000 mL, Memori a Chloride 2-31 1,000 l 0.154 11:01: ml/hr, Bryson MEQ/ML 00 Infuse Injectable Over: 1 Solution hr, Route: IV, 1,000, Drug form: INJ, ONCE, Priority: STAT, Dosing Weight 54.545 kg, Start date: 04/30/16 5:01:00 JANITORIAL TECH, Duration: 1 doses or times, Stop date: 04/30/16 5:01:00 JANITORIAL TECH Ketorolac 2015-05 No 4 days Memor ia 2-31 l 11:01: MEDICATION Bryson 00 WASTE Product Size: 30 mg Product Wasted: ___ mg Compazine 2015-05 No Notes: Memori a 2-31 (Same as: l 11:01: Compazine) Serena 00 Benadryl 2015-05 No Notes: Memoria 2-31 (Same as: l 11:01: Benadryl) Serena 00 Sodium 2015-05 No 1,000 mL, Memori a Chloride 2-31 1,000 l 0.154 11:01: ml/hr, Bryson MEQ/ML 00 Infuse Injectable Over: 1 Solution hr, Route: IV, 1,000, Drug form: INJ, ONCE, Priority: STAT, Dosing Weight 54.545 kg, Start date: 04/30/16 5:01:00 JANITORIAL TECH, Duration: 1 doses or times, Stop date: 04/30/16 5:01:00 JANITORIAL TECH Ketorolac 2015-05 No 4 days Memor ia 2-31 l 11:01: MEDICATION Serena 00 WASTE Product Size: 30 mg Product Wasted: ___ mg Compazine 2015-05 No Notes: Memori a 2-31 (Same as: l 11:: Compazine) Serena Benadryl 2015-05 No Notes: Memoria 2-31 (Same as: l 11:: Benadryl) Bryson 00 Sodium 2015-05 No 1,000 mL, Memori a Chloride 2-31 1,000 l 0.154 11:01: ml/hr, Bryson MEQ/ML 00 Infuse Injectable Over: 1 Solution hr, Route: IV, 1,000, Drug form: INJ, ONCE, Priority: STAT, Dosing Weight 54.545 kg, Start date: 04/30/16 5:01:00 JANITORIAL TECH, Duration: 1 doses or times, Stop date: 04/30/16 5:01:00 JANITORIAL TECH Ketorolac 2015-05 No 4 days Memor ia 2-31 l 11:01: MEDICATION Bryson 00 WASTE Product Size: 30 mg Product Wasted: ___ mg Compazine 2015-05 No Notes: Memori a 2-31 (Same as: l 11:: Compazine) Bryson Benadryl 2015-05 No Notes: Memoria 2-31 (Same as: l 11:: Benadryl) Serena Sodium 2015-05 No 1,000 mL, Memori a Chloride 2-31 1,000 l 0.154 11:01: ml/hr, Serena MEQ/ML 00 Infuse Injectable Over: 1 Solution hr, Route: IV, 1,000, Drug form: INJ, ONCE, Priority: STAT, Dosing Weight 54.545 kg, Start date: 04/30/16 5:01:00 JANITORIAL TECH, Duration: 1 doses or times, Stop date: 04/30/16 5:01:00 JANITORIAL TECH Ketorolac 2015-05 No 4 days Memor ia [...] Weight 54.545 kg, Start date: 04/30/16 5:01:00 JANITORIAL TECH, Duration: 1 doses or times, Stop date: 04/30/16 5:01:00 JANITORIAL TECH Ketorolac 2015-05 No 4 days Memor ia 2-31 l 11:01: MEDICATION Serena 00 WASTE Product Size: 30 mg Product Wasted: ___ mg Compazine 2015-05 No Notes: Memori a 2-31 (Same as: l 11:: Compazine) Serena Benadryl 2015-05 No Notes: Memoria 2-31 (Same as: l 11:: Benadryl) Serena 00 Sodium 2015-05 No 1,000 mL, Memori a Chloride 2-31 1,000 l 0.154 11:01: ml/hr, Serena MEQ/ML 00 Infuse Injectable Over: 1 Solution hr, Route: IV, 1,000, Drug form: INJ, ONCE, Priority: STAT, Dosing Weight 54.545 kg, Start date: 04/30/16 5:01:00 JANITORIAL TECH, Duration: 1 doses or times, Stop date: 04/30/16 5:01:00 JANITORIAL TECH Ketorolac 2015-05 No 4 days Memor ia 2-31 l 11:01: MEDICATION Bryson 00 WASTE Product Size: 30 mg Product Wasted: ___ mg Compazine 2015-05 No Notes: Memori a 2-31 (Same as: l 11:: Compazine) Bryson 00 Benadryl 2015-05 No Notes: Memoria 2-31 (Same as: l 11:: Benadryl) Bryson 00 Sodium 2015-05 No 1,000 mL, Memori a Chloride 2-31 1,000 l 0.154 11:01: ml/hr, Serena MEQ/ML 00 Infuse Injectable Over: 1 Solution hr, Route: IV, 1,000, Drug form: INJ, ONCE, Priority: STAT, Dosing Weight 54.545 kg, Start date: 04/30/16 5:01:00 JANITORIAL TECH, Duration: 1 doses or times, Stop date: 04/30/16 5:01:00 JANITORIAL TECH Ketorolac 2015-05 No 4 days Memor ia 2-31 l 11:01: MEDICATION Serena 00 WASTE Product Size: 30 mg Product Wasted: ___ mg Compazine 2015-05 No Notes: Memori a 2-31 (Same as: l 11:01: Compazine) Bryson Benadryl 2015-05 No Notes: Memoria 2-31 (Same as: l 11:01: Benadryl) Bryson 00 Sodium 2015-05 No 1,000 mL, Memori a Chloride 2- 1,000 l 0.154 11:01: ml/hr, Bryson MEQ/ML 00 Infuse Injectable Over: 1 Solution hr, Route: IV, 1,000, Drug form: INJ, ONCE, Priority: STAT, Dosing Weight 54.545 kg, Start date: 04/30/16 5:01:00 JANITORIAL TECH, Duration: 1 doses or times, Stop date: 04/30/16 5:01:00 JANITORIAL TECH Ketorolac 2015-05 No 4 days Memor ia 2- l 11:01: MEDICATION Serena 00 WASTE Product Size: 30 mg Product Wasted: ___ mg Compazine 2015-05 No Notes: Memori a 2-31 (Same as: l 11:01: Compazine) Serena Benadryl 2015-05 No Notes: Memoria 2-31 (Same as: l 11:01: Benadryl) Serena Dexamethaso 2015-05 No Notes: Magdaleno pilo ne 2-08 Concentrat l 06:19: ion: Serena 00 4mg/ml Dexamethaso 2015-05 No Notes: Magdaleno pilo ne 2-08 Concentrat l 06:19: ion: Bryson 00 4mg/ml Dexamethaso 2015-05 No Notes: Magdaleno pilo ne 2-08 Concentrat l 06:19: ion: Serena 00 4mg/ml Dexamethaso 2015-05 No Notes: Magdaleno pilo ne 2-08 Concentrat l 06:19: ion: Bryson 00 4mg/ml Dexamethaso 2015-05 No Notes: Magdaleno pilo ne 2-08 Concentrat l 06:19: ion: Serena 00 4mg/ml Dexamethaso 2015-05 No Notes: Magdaleno pilo ne 2-08 Concentrat l 06:19: ion: Bryson 00 4mg/ml Dexamethaso 2015-05 No Notes: Magdaleno pilo ne 2-08 Concentrat l 06:19: ion: Serena 00 4mg/ml Dexamethaso 2015-05 No Notes: Magdaleno pilo ne 2-08 Concentrat l 06:19: ion: Serena 00 4mg/ml Motrin 2015-05 No Notes: Memoria 2-08 (Same as: l 01:50: Motrin) Serena 00 "Do Not Crush" Take with food. sodium 2015-05 No 1,000 mL, Memori a chloride 2-08 Rate: l 0.9% 1000 01:50: 1,000 Serena ml INJ 00 ml/hr, 1,000 mL Infuse over: 1 hr, Route: IV, Dosing Weight 50 kg, Total Volume: 1,000, Start date: 04/06/16 19:50:00 JANITORIAL TECH, Duration: 1 doses or times, Stop date: 04/06/16 20:49:00 JANITORIAL TECH, Bolus Dose Motrin 2015-05 No Notes: Memoria 2-08 (Same as: l 01:50: Motrin) Bryson 00 "Do Not Crush" Take with food. sodium 2015-05 No 1,000 mL, Memori a chloride 2-08 Rate: l 0.9% 1000 01:50: 1,000 Bryson ml INJ 00 ml/hr, 1,000 mL Infuse over: 1 hr, Route: IV, Dosing Weight 50 kg, Total Volume: 1,000, Start date: 04/06/16 19:50:00 JANITORIAL TECH, Duration: 1 doses or times, Stop date: 04/06/16 20:49:00 JANITORIAL TECH, Bolus Dose Motrin 2015-05 No Notes: Memoria 2-08 (Same as: l 01:50: Motrin) Bryson 00 "Do Not Crush" Take with food. sodium 2015-05 No 1,000 mL, Memori a chloride 2-08 Rate: l 0.9% 1000 01:50: 1,000 Bryson ml INJ 00 ml/hr, 1,000 mL Infuse over: 1 hr, Route: IV, Dosing Weight 50 kg, Total Volume: 1,000, Start date: 04/06/16 19:50:00 JANITORIAL TECH, Duration: 1 doses or times, Stop date: 04/06/16 20:49:00 JANITORIAL TECH, Bolus Dose Motrin 2015-05 No Notes: Memoria 2-08 (Same as: l 01:50: Motrin) Bryson 00 "Do Not Crush" Take with food. sodium 2015- No 1,000 mL, Memori a chloride 2-08 Rate: l 0.9% 1000 01:50: 1,000 Bryson ml INJ 00 ml/hr, 1,000 mL Infuse over: 1 hr, Route: IV, Dosing Weight 50 kg, Total Volume: 1,000, Start date: 04/06/16 19:50:00 JANITORIAL TECH, Duration: 1 doses or times, Stop date: 04/06/16 20:49:00 JANITORIAL TECH, Bolus Dose Motrin 2015-05 No Notes: Memoria 2-08 (Same as: l 01:50: Motrin) Serena 00 "Do Not Crush" Take with food. sodium 2015- No 1,000 mL, Memori a chloride 2-08 Rate: l 0.9% 1000 01:50: 1,000 Bryson ml INJ 00 ml/hr, 1,000 mL Infuse over: 1 hr, Route: IV, Dosing Weight 50 kg, Total Volume: 1,000, Start date: 04/06/16 19:50:00 JANITORIAL TECH, Duration: 1 doses or times, Stop date: 04/06/16 20:49:00 JANITORIAL TECH, Bolus Dose Motrin 2015-05 No Notes: Memoria 2-08 (Same as: l 01:50: Motrin) Serena 00 "Do Not Crush" Take with food. sodium 2015-05 No 1,000 mL, Memori a chloride 2-08 Rate: l 0.9% 1000 01:50: 1,000 Serena ml INJ 00 ml/hr, 1,000 mL Infuse over: 1 hr, Route: IV, Dosing Weight 50 kg, Total Volume: 1,000, Start date: 04/06/16 19:50:00 JANITORIAL TECH, Duration: 1 doses or times, Stop date: 04/06/16 20:49:00 JANITORIAL TECH, Bolus Dose Motrin 2015-05 No Notes: Memoria 2-08 (Same as: l 01:50: Motrin) Bryson 00 "Do Not Crush" Take with food. sodium 2015-05 No 1,000 mL, Memori a chloride 2-08 Rate: l 0.9% 1000 01:50: 1,000 Serena ml INJ 00 ml/hr, 1,000 mL Infuse over: 1 hr, Route: IV, Dosing Weight 50 kg, Total Volume: 1,000, Start date: 04/06/16 19:50:00 JANITORIAL TECH, Duration: 1 doses or times, Stop date: 04/06/16 20:49:00 JANITORIAL TECH, Bolus Dose Motrin 2015-05 No Notes: Memoria 2-08 (Same as: l 01:50: Motrin) Serena "Do Not Crush" Take with food. sodium 2015-05 No 1,000 mL, Memori a chloride 2-08 Rate: l 0.9% 1000 01:50: 1,000 Serena ml INJ 00 ml/hr, 1,000 mL Infuse over: 1 hr, Route: IV, Dosing Weight 50 kg, Total Volume: 1,000, Start date: 04/06/16 19:50:00 JANITORIAL TECH, Duration: 1 doses or times, Stop date: 04/06/16 20:49:00 JANITORIAL TECH, Bolus Dose Acetaminoph No Notes: Do M emoria en -15 not exceed l 06:17: 4 gm/day. Bryson 00 (Same as: Tylenol) Acetaminoph No Notes: Do M emoria en 9-15 not exceed l 06:17: 4 gm/day. Bryson 00 (Same as: Tylenol) Acetaminoph No Notes: Do M emoria en 9-15 not exceed l 06:17: 4 gm/day. Serena (Same as: Tylenol) Acetaminoph No Notes: Do M emoria en 9-15 not exceed l 06:17: 4 gm/day. Serena (Same as: Tylenol) Acetaminoph No Notes: Do M emoria en 9-15 not exceed l 06:17: 4 gm/day. Serena 00 (Same as: Tylenol) Acetaminoph No Notes: Do M emoria en 915 not exceed l 06:17: 4 gm/day. Serena (Same as: Tylenol) Acetaminoph No Notes: Do M emoria en 01-13 not exceed l 06:17: 4 gm/day. Serena 00 (Same as: Tylenol) Acetaminoph No Notes: Do M emoria en 01-13 not exceed l 06:17: 4 gm/day. Serena 00 (Same as: Tylenol) Epinephrine 0 No [...] CDT, Stop date: 01/13/16 22:09:00 CDT Epinephrine 2015- No 1 ml, Memor ia 0.01 MG/ML [...] Take 2 Gonzales (COGENTIN) 5-01 tablets by [facility] 0.5 mg 00:00: mouth 2 tablet [...] 1 Gonzales e (INVEGA) 5-01 tablet by [facility] 9 mg 00:00: mouth extended 00 every release morning. tablet traZODone 2014-0 Yes Psychosis 100mg Take 1 Gonzales (DESYREL) [facility]-01 [facility] mg 00:00: mouth tablet 00 nightly at bedtime as needed for Sleep. benztropine Yes Psychosis 1mg Take 2 Gonzales (COGENTIN) 5-[address] [facility] lt 0.5 mg 00:00: mouth 2 tablet [...] 1 Gonzales e (INVEGA) 5-01 tablet by [facility] 9 mg 00:00: mouth extended 00 every release morning. tablet traZODone Yes Psychosis 100mg Take 1 [facility] mouth tablet 00 nightly at bedtime as needed for Sleep. benztropine Yes Psychosis 1mg Take 2 Gonzales (COGENTIN) 5-01 tablets by [facility] 0.5 mg 00:00: mouth 2 tablet [...] 1 Gonzales e (INVEGA) 5-01 tablet by [facility] 9 mg 00:00: mouth extended 00 every release morning. tablet traZODone 2013-0 Yes Psychosis 100mg Take 1 Gonzales (DESYREL) 5-01 [facility] 100 mg 00:00: mouth tablet 00 nightly at bedtime as needed for Sleep. benztropine 2013-2- No Psychosis 1mg Take 2 Gonzales (COGENTIN) 5-01 11-14 tablets by [facility] 0.5 mg 00:00: 00:00 mouth 2 [...] 1 Gonzales e (INVEGA) 08-[address] [facility] lt 9 mg 00:00: 00:00 mouth extended 00 :00 every release morning. tablet traZODone 2021- No Psychosis 100mg Take 1 Gonzales (DESYREL) 08-29 [facility] 100 mg 00:00: 00:00 mouth tablet 00 :00 nightly at bedtime as needed for Sleep. benztropine 2021- No Psychosis 1mg Take 2 Gonzales (COGENTIN) 08-29 tablets by [facility] 0.5 mg 00:00: 00:00 mouth 2 [...] 1 Gonzales e (INVEGA) 08-29 tablet by [facility] 9 mg 00:00: 00:00 mouth extended 00 :00 every release morning. tablet traZODone 2021- No Psychosis 100mg Take 1 Gonzales (DESYREL) 08-29 [facility] 100 mg 00:00: [...] 1 Gonzales e (INVEGA) 08-[address] [facility] lt 9 mg 00:00: 00:00 mouth extended 00 :00 every release morning. tablet traZODone 2021- No Psychosis 100mg Take 1 Gonzales (DESYREL) 08-29 tablet by [facility] 100 mg 00:00: 00:00 mouth tablet 00 :00 nightly at bedtime as needed for Sleep. Keflex 750 Yes Dejon 750 mg, 1 Me moria mg oral 9 Chibueze cap, PO, l capsule 01:30: Osuagwu Q12H, 10 Her hung 08 cap, Substituti on Allowed Keflex 750 Yes Djeon 750 mg, 1 Me moria mg oral [...] needed for itching, Substituti on Allowed, TAB Wilson Yes Leona H 1 tab, PO, Magdaleno pilo 10/325 oral 12-30 Khraish Q6H, 20 l tablet 17:35: tabBryson Substituti on Allowed, Maintenanc e, TAB Wilson Yes Leona H 1 tab, PO, Magdaleno pilo 10/325 oral 12-30 Khraish Q6H, 20 l tablet 17:35: tabBryson Substituti on Allowed, Maintenanc e, TAB Wilson Yes Leona H 1 tab, PO, Magdaleno pilo 10/325 oral 12-30 Khraish Q6H, 20 l tablet 17:35: Bryson grigsby Substituti on Allowed, Maintenanc e, TAB Wilson Yes Leona H 1 tab, PO, Magdaleno pilo 10/325 oral 12-30 Khraish Q6H, 20 l tablet 17:35: Bryson grigsby Substituti on Allowed, Maintenanc e, TAB Wilson Yes Leona H 1 tab, PO, Magdaleno pilo 10/325 oral 12-30 Khraish Q6H, 20 l tablet 17:35: Bryson grigsby Substituti on Allowed, Maintenanc e, TAB Wilson Yes Leona H 1 tab, PO, Magdaleno pilo 10/325 oral 12-30 Khraish Q6H, 20 l tablet 17:35: Bryson grigsby Substituti on Allowed, Maintenanc e, TAB Wilson Yes Leona H 1 tab, PO, Magdaleno pilo 10/325 oral - Khraish Q6H, 20 l tablet 17:35: tabBryson Substituti on Allowed, Maintenanc e, TAB Wilson Yes Leona H 1 tab, PO, Magdaleno pilo 10/325 oral 12-30 Khraish Q6H, 20 l tablet 17:35: tabBryson Substituti on Allowed, Maintenanc e, TAB tramadol 50 2012-0 No Leona H 50 [...] 30 day, Stop date: 01/29/13 8:43:00 hydrOXYzine 2013-0 No Leona H 25 mg, 1 Memoria [...] 30 day, Stop date: 01/29/13 8:43:00 cefazolin 0 No Lliy 1 gm, Memor ia 12-30 Mahesh Route: [...] 2 day, Stop date: 12/31/12 17:00:00 cefazolin 0 No Lily 1 gm, Memor ia 12-30 [...] 12-30 Mahesh Route: l 06:00: IVPB, Drug Serena form: PDR/INJ, ABXQ8H, Dosing Weight 54.545, kg, [...] 12-30 Aragon Route: l 06:00: IVPB, Drug Serena 00 form: PDR/INJ, ABXQ8H, Dosing Weight 54.545, kg, Start date: 12/30/12 1:00:00, Duration: 2 day, Stop date: 12/31/12 17:00:00 cefazolin 2012-0 No Lily 1 gm, Memor ia 12-30 Aragon Route: l 06:00: IVPB, Drug Serena 00 form: PDR/INJ, ABXQ8H, Dosing Weight 54.545, kg, Start date: 12/30/12 1:00:00, Duration: 2 day, Stop date: 12/31/12 17:00:00 Zofran 2013-0 No Lily 4 mg, 1 Memori a 12-30 [facility] tab, l 05:18: Route: PO, Serena 00 Drug form: TAB, Q8H, Dosing Weight 54.545, kg, PRN Nausea, Start date: 12/30/12 0:18:00, Duration: 30 day, Stop date: 01/29/13 0:17:00 Zofran 2013-0 No Lily 4 mg, 1 Memori a 12-30 [facility] tab, l 05:18: Route: PO, Bryson 00 [...] 12-30 Aragon tab, l 05:18: Route: PO, Serena 00 Drug form: TAB, Q8H, Dosing Weight [...] 12-30 Aragon tab, l 05:18: Route: PO, Serena 00 Drug form: TAB, Q8H, Dosing Weight 54.545, kg, PRN Nausea, Start date: 12/30/12 0:18:00, Duration: 30 day, Stop date: 01/29/13 0:17:00 Ultra 50 2012- No Dejon 100 mg, 2 Mem oria mg oral 12-30 Chibueze tab, l tablet 03:16: Osuagwu Route: PO, He Drug form: TAB, ONCE, Dosing Weight 54.545, kg, Start date: 12/29/12 22:16:00, Stop date: 12/29/12 22:16:00 Ultra 50 2012-0 No Dejon 100 mg, 2 Mem oria mg oral - Chibueze tab, l tablet 03:16: Osuagwu Route: PO, Drug form: TAB, ONCE, Dosing Weight 54.545, kg, Start date: 12/29/12 22:16:00, Stop date: 12/29/12 22:16:00 Ultram 50 2012-0 No Dejon 100 mg, 2 Mem oria mg oral - Chibueze tab, l tablet 03:16: Osuagwu Route: PO, Drug form: TAB, ONCE, Dosing Weight 54.545, kg, Start date: 12/29/12 22:16:00, Stop date: 12/29/12 22:16:00 Ultra 50 2012-0 No Dejon 100 mg, 2 Mem oria mg oral - Chibueze tab, l tablet 03:16: Osuagwu Route: PO, Drug form: TAB, ONCE, Dosing Weight 54.545, kg, Start date: 12/29/12 22:16:00, Stop date: 12/29/12 22:16:00 Ultra 50 2012-0 No Dejon 100 mg, 2 Mem oria mg oral - Chibueze tab, l tablet 03:16: Osuagwu Route: PO, Drug form: TAB, ONCE, Dosing Weight 54.545, kg, Start date: 12/29/12 22:16:00, Stop date: 12/29/12 22:16:00 Ultram 50 2012-0 No Dejon 100 mg, 2 Mem oria mg oral - Chibueze tab, l tablet 03:16: Osuagwu Route: PO, Drug form: TAB, ONCE, Dosing [...] tab, l tablet 03:16: Osuagwu Route: PO, [facility] Drug form: TAB, ONCE, Dosing Weight 54.545, kg, Start date: 12/29/12 22:16:00, Stop date: 12/29/12 22:16:00 Valium 2013-0 No Leona H 5 mg, 1 Memori a 8-31 Khraish tab, l 22:00: Route: PO, Serena 00 Drug form: TAB, BID, Dosing Weight [...] 8-31 Khraish tab, l 22:00: Route: PO, Serena 00 Drug form: TAB, BID, Dosing Weight 54.545, kg, Start date: 12/29/12 17:00:00, Duration: 30 day, Stop date: 01/28/13 9:00:00 Valium 2013-0 No Leona H 5 mg, 1 Memori a 8-31 Khraish tab, l 22:00: Route: PO, Serena 00 Drug form: TAB, BID, Dosing Weight 54.545, kg, Start date: 12/29/12 17:00:00, Duration: 30 day, Stop date: 01/28/13 9:00:00 Valium 2012-0 No Leona H 5 mg, 1 Memori a 12-29 Khraish tab, l 22:00: Route: PO, Serena 00 Drug form: TAB, BID, Dosing Weight 54.545, kg, Start date: 12/29/12 17:00:00, Duration: 30 day, Stop date: 01/28/13 9:00:00 Valium 2012-0 No Leona H 5 mg, 1 Memori a 12-29 Khraish tab, l 22:00: Route: PO, Serena 00 Drug form: TAB, BID, Dosing Weight [...] 12-29 Khraish tab, l 22:00: Route: PO, Serena 00 Drug form: TAB, BID, Dosing Weight 54.545, kg, Start date: 12/29/12 17:00:00, Duration: 30 day, Stop date: 01/28/13 9:00:00 BD 2012-0 No Spencer 5 mL, Memoria Posiflush 12-29 Philip Merrill Route: l SF 14:00: IVP, Drug Form: INJ, Q12H, Start date: 12/29/12 9:00:00, Duration: 30 day, Stop date: 01/27/13 21:00:00 nicotine 2012-0 No Татьяна Yen 7 mg, 1 Mem oria 12-29 Thi Alanis patch, l 14:00: Route: Bryson [...] Spencer 5 mL, Memoria Posiflush 12-29 Philip Merrill Route: l SF 14:00: IVP, Drug Form: INJ, Q12H, Start date: 12/29/12 9:00:00, Duration: 30 day, Stop date: 01/27/13 21:00:00 nicotine No Татьяна Yen 7 mg, 1 Mem oria 12-29 Thi Alanis patch, l 14:00: Route: Serena 00 TOP, Drug form: ERFILM, Daily, Dosing [...] Spencer 5 mL, Memoria Posiflush 12-29 Philip Merrill Route: l SF 14:00: IVP, Drug Form: INJ, Q12H, Start date: 12/29/12 9:00:00, Duration: 30 day, Stop date: 01/27/13 21:00:00 nicotine 2012-0 No Татьяна Yen 7 mg, 1 Mem oria -31 Thi Alanis patch, l 14:00: Route: Serena 00 TOP, Drug form: ERFILM, Daily, Dosing [...] Spencer 5 mL, Memoria Posiflush -31 Philip Merrill Route: l SF 14:00: IVP, Drug Form: INJ, Q12H, Start date: 12/29/12 9:00:00, Duration: 30 day, Stop date: 01/27/13 21:00:00 nicotine 2012- No Татьяна Yen 7 mg, 1 Mem oria 8-31 Thi Alnais patch, l 14:00: Route: Serena TOP, Drug form: ERFILM, Daily, Dosing Weight [...] Spencer 5 mL, Memoria Posiflush -31 Philip Merrill Route: l SF 14:00: IVP, Drug Form: [...] Spencer 5 mL, Memoria Posiflush 12-29 Philip Merrill Route: l SF 14:00: IVP, Drug Form: INJ, Q12H, Start date: 12/29/12 9:00:00, Duration: 30 day, Stop date: 01/27/13 21:00:00 nicotine 0 No Татьяна Yen 7 mg, 1 Mem oria 8-31 Thi Alanis patch, l 14:00: Route: Serena TOP, Drug form: ERFILM, Daily, Dosing Weight [...] Spencer 5 mL, Memoria Posiflush 12-29 Philip Merrill Route: l SF 14:00: IVP, Drug Form: [...] Spencer 5 mL, Memoria Posiflush 12-29 Philip Merrill Route: l SF 14:00: IVP, Drug Form: [...] 5 day, Stop date: 01/02/13 9:00:00 labetalol 2012-0 No Gato 5 mg, 1 [...] Edward 0.1 mL, l 13:07: [place] Route: Serena 00 IVP, Drug form: INJ, Q2MIN, Dosing [...] of times hydromorpho No Gato 0.5 mg, moria ne 12-29 Edward 0.25 mL, l 13:07: [place] Route: Serena 00 IVP, Drug form: INJ, Q5Min, Dosing [...] Edward 0.1 mL, l 13:07: [place] Route: Serena 00 IVP, Drug form: INJ, Q2MIN, Dosing [...] Edward 0.1 mL, l 13:07: [place] Route: Serena 00 IVP, Drug form: INJ, Q2MIN, Dosing [...] date: Limited # of times hydromorpho No Agto 0.5 mg, Me moria ne 12-29 Edward 0.25 mL, l 13:07: [place] Route: Bryson 00 IVP, Drug form: INJ, Q5Min, Dosing Weight 54.545, kg, PRN Pain Score 7-10, Start date: 12/29/12 8:07:00, Duration: 5 doses or times, Stop date: Limited # of times flumazenil No Gato 0.2 mg, 2 M rupertria 12-29 Edward mL, Route: l 13:07: Schakett [...] Edward 0.1 mL, l 13:07: Schakett Route: Serena 00 IVP, Drug form: INJ, Q2MIN, Dosing [...] Edward 0.25 mL, l 13:07: Schakett Route: Serena 00 IVP, Drug form: INJ, Q5Min, Dosing [...] Edward 0.25 mL, l 13:07: Schakett Route: Serena IVP, Drug form: INJ, Q5Min, Dosing Weight [...] Edward 0.1 mL, l 13:07: Schakett Route: Serena 00 IVP, Drug form: INJ, Q2MIN, Dosing [...] Edward 0.1 mL, l 13:07: Schakett Route: Serena 00 IVP, Drug form: INJ, Q2MIN, Dosing [...] Edward 0.25 mL, l 13:07: Schakett Route: Serena 00 IVP, Drug form: INJ, Q5Min, Dosing [...] l 13:07: Schakett IVP, Drug form: INJ, ONCE, Dosing Weight 54.545, kg, PRN Nausea & Vomiting, Start date: 12/29/12 8:07:00 naloxone 0 No Gato 0.04 mg, Magdaleno pilo 12-29 [...] Thi Alanis tab, l 13:00: Route: PO, Serena 00 Drug form: ERTAB, ONCE, Dosing Weight 54.545, kg, Priority: Routine, Start date: 12/29/12 8:00:00, Stop date: 12/29/12 8:00:00 potassium 2012-0 No Татьяна Yen 40 mEq, 2 Memoria chloride - Thi Alanis tab, l 13:00: Route: PO, Serena 00 Drug form: ERTAB, ONCE, Dosing Weight [...] Alanis tab, l 13:00: Route: PO, Bryson Drug form: ERTAB, ONCE, Dosing Weight 54.545, kg, Priority: Routine, Start date: 12/29/12 8:00:00, Stop date: 12/29/12 8:00:00 potassium 2012-0 No Татьяна Yen 40 mEq, 2 Memoria chloride 8-31 Thi Alanis tab, l 13:00: Route: PO, Bryson 00 Drug form: ERTAB, ONCE, Dosing Weight 54.545, kg, Priority: Routine, Start date: 12/29/12 8:00:00, Stop date: 12/29/12 8:00:00 Wilson 2012-0 No Татьяна Yen 1 tab, Memoria 10/325 oral 8-31 Thi Alanis Route: PO, l tablet 11:00: Drug Form: Karley nn 00 TAB, Dosing Weight 54.545, kg, Q6H, Start date: 12/29/12 6:00:00, Duration: 30 day, Stop date: 01/28/13 0:00:00 Wilson 2012-0 No Татьяна Yen 1 tab, Memoria 10/325 oral 8-31 Thi Alanis Route: PO, l tablet 11:00: Drug Form: Karley nn 00 TAB, Dosing Weight 54.545, kg, Q6H, Start date: 12/29/12 6:00:00, Duration: 30 day, Stop date: 01/28/13 0:00:00 Wilson 0 No Татьяна Yen 1 tab, Memoria 10/325 oral 8-31 Thi Alanis Route: PO, l tablet 11:00: Drug Form: Karley nn 00 TAB, Dosing Weight 54.545, kg, Q6H, Start date: 12/29/12 6:00:00, Duration: 30 day, Stop date: 01/28/13 0:00:00 Wilson 0 No Татьяна Yen 1 tab, Memoria 10/325 oral 8-31 Thi Alanis Route: PO, l tablet 11:00: Drug Form: Karley nn 00 TAB, Dosing Weight 54.545, kg, Q6H, Start date: 12/29/12 6:00:00, Duration: 30 day, Stop date: 01/28/13 0:00:00 Wilson 0 No Татьяна Yen 1 tab, Memoria 10/325 oral 8-31 Thi Alanis Route: PO, l tablet 11:00: Drug Form: Karley nn 00 TAB, Dosing Weight 54.545, kg, Q6H, Start date: 12/29/12 6:00:00, Duration: 30 day, Stop date: 01/28/13 0:00:00 Wilson 0 No Татьяна Yen 1 tab, Memoria 10/325 oral 8-31 Thi Alanis Route: PO, l tablet 11:00: Drug Form: Karley nn 00 TAB, Dosing Weight 54.545, kg, Q6H, Start date: 12/29/12 6:00:00, Duration: 30 day, Stop date: 01/28/13 0:00:00 Wilson 0 No Татьяна Yen 1 tab, Memoria 10/325 oral 8-31 Thi Alanis Route: PO, l tablet 11:00: Drug Form: Karley nn 00 TAB, Dosing Weight 54.545, kg, Q6H, Start date: 12/29/12 6:00:00, Duration: 30 day, Stop date: 01/28/13 0:00:00 Wilson 2013-0 No Татьяна Yen 1 tab, Memoria 10/325 oral 8-31 Thi Alanis Route: PO, l tablet 11:00: Drug Form: Karley nn 00 TAB, Dosing Weight 54.545, kg, Q6H, Start date: 12/29/12 6:00:00, Duration: 30 day, Stop date: 01/28/13 0:00:00 LORAzepam 2012-0 No Татьяна Yen 0.5 mg, Me moria 8-31 Thi Alanis 0.25 mL, l 10:22: Route: Bryson IVP, Drug form: INJ, Q2H, Dosing Weight 54.545, kg, PRN Agitation, Start date: 12/29/12 5:22:00, Duration: 30 day, Stop date: 01/28/13 5:21:00 LORAzepam 2012-0 No Татьяна Yen 0.5 mg, Me moria 8-31 Thi Alanis 0.25 mL, l 10:22: Route: Serena 00 IVP, Drug form: INJ, Q2H, Dosing Weight 54.545, kg, PRN Agitation, Start date: 12/29/12 5:22:00, Duration: 30 day, Stop date: 01/28/13 5:21:00 LORAzepam 2012-0 No Татьяна Yen 0.5 mg, Me moria 8-31 Thi Alanis 0.25 mL, l 10:22: Route: Bryson IVP, Drug form: INJ, Q2H, Dosing Weight 54.545, kg, PRN Agitation, Start date: 12/29/12 5:22:00, Duration: 30 day, Stop date: 01/28/13 5:21:00 LORAzepam 2012-0 No Татьяна Yen 0.5 mg, Me moria 8-31 Thi Alanis 0.25 mL, l 10:22: Route: Serena IVP, Drug form: INJ, Q2H, Dosing Weight [...] 30 day, Stop date: 01/28/13 4:33:00 morphine No Leona H 2 mg, 1 Magdaleno [...] Khraish mL, Route: l 09:34: IV, Drug Serena 00 form: INJ, Q4H, Dosing Weight 54.545, [...] 30 day, Stop date: 01/28/13 4:33:00 morphine 2013-0 No Leona H 2 mg, 1 Magdaleno [...] Khraish mL, Route: l 09:34: IV, Drug Serena 00 form: INJ, Q4H, Dosing Weight 54.545, [...] Khraish mL, Route: l 09:34: IV, Drug Serena 00 form: INJ, Q4H, Dosing Weight 54.545, [...] Khraish mL, Route: l 09:34: IV, Drug Serena 00 form: INJ, Q4H, Dosing Weight 54.545, [...] Khraish mL, Route: l 09:34: IV, Drug Serena 00 form: INJ, Q4H, Dosing Weight 54.545, [...] Thi Alanis Route: l 09:32: IVP, Drug Serena 00 Form: INJ, Dosing Weight 54.545, kg, PRN, PRN Line Flush, Start date: 12/29/12 4:32:00, Duration: 30 day, Stop date: 01/28/13 4:31:00 Saline 2012-0 No Татьяна Yen 5 mL, Memoria Flush 0.9% 8-31 Thi Alanis Route: l 09:32: IVP, Drug Serena 00 Form: INJ, Dosing Weight 54.545, kg, PRN, PRN Line Flush, Start date: 12/29/12 4:32:00, Duration: 30 day, Stop date: 01/28/13 4:31:00 Saline 2012-0 No Татьяна Yen 5 mL, Memoria Flush 0.9% 8-31 Thi Alanis Route: l 09:32: IVP, Drug Serena 00 Form: INJ, Dosing Weight 54.545, kg, PRN, PRN Line Flush, Start date: 12/29/12 4:32:00, Duration: 30 day, Stop date: 01/28/13 4:31:00 Saline 2012-0 No Татьяна Yen 5 mL, Memoria Flush 0.9% 8-31 Thi Alanis Route: l 09:32: IVP, Drug Serena 00 Form: INJ, Dosing Weight 54.545, kg, PRN, PRN Line Flush, Start date: 12/29/12 4:32:00, Duration: 30 day, Stop date: 01/28/13 4:31:00 Saline 2012-0 No Татьяна Yen 5 mL, Memoria Flush 0.9% 8-31 Thi Alanis Route: l 09:32: IVP, Drug Serena 00 Form: INJ, Dosing Weight 54.545, kg, [...] Thi Alanis tab, l 09:31: Route: PO, Serena 00 Drug form: ERTAB, ONCE, Dosing Weight [...] Thi Alanis tab, l 09:31: Route: PO, Serena 00 Drug form: ERTAB, ONCE, Dosing Weight [...] Thi Alanis tab, l 09:31: Route: PO, Serena 00 Drug form: ERTAB, ONCE, Dosing Weight [...] 2 mg, 1 Memori a 8-31 Philip Merrill mL, Route: l 06:34: IVP, Drug Serena 00 form: INJ, ONCE, Dosing Weight 54.545, kg, Priority: STAT, Start date: 12/29/12 1:34:00, Stop date: 12/29/12 1:34:00 Ativan 2012-0 No Specner 2 mg, 1 Memori a 8-31 Philip Merrill mL, Route: l 06:34: IVP, Drug Bryson 00 form: INJ, ONCE, Dosing Weight 54.545, kg, Priority: STAT, Start date: 12/29/12 1:34:00, Stop date: 12/29/12 1:34:00 Ativan 2012-0 No Spencer 2 mg, 1 Memori a 8-31 Philip Merrill mL, Route: l 06:34: IVP, Drug Serena 00 form: INJ, ONCE, Dosing Weight 54.545, kg, Priority: STAT, Start date: 12/29/12 1:34:00, Stop date: 12/29/12 1:34:00 Ativan 2012-0 No Spencer 2 mg, 1 Memori a 8-31 Philip Merrill mL, Route: l 06:34: IVP, Drug Serena 00 form: INJ, ONCE, Dosing Weight 54.545, kg, Priority: STAT, Start date: 12/29/12 1:34:00, Stop date: 12/29/12 1:34:00 Ativan 2012-0 No Spencer 2 mg, 1 Memori a 8-31 Philip Merrill mL, Route: l 06:34: IVP, Drug Serena 00 form: INJ, ONCE, Dosing Weight 54.545, kg, Priority: STAT, Start date: 12/29/12 1:34:00, Stop date: 12/29/12 1:34:00 Ativan 2012-0 No Spencer 2 mg, 1 Memori a 8-31 Philip Merrill mL, Route: l 06:34: IVP, Drug Bryson 00 form: INJ, ONCE, Dosing Weight 54.545, kg, Priority: STAT, Start date: 12/29/12 1:34:00, Stop date: 12/29/12 1:34:00 Ativan 2012-0 No Spencer 2 mg, 1 Memori a 8-31 Philip Merrill mL, Route: l 06:34: IVP, Drug Bryson 00 form: INJ, ONCE, Dosing Weight 54.545, kg, Priority: STAT, Start date: 12/29/12 1:34:00, Stop date: 12/29/12 1:34:00 Ativan 2012-0 No Spencer 2 mg, 1 Memori a 8-31 Philip Merrill mL, Route: l 06:34: IVP, Drug Serena 00 form: INJ, ONCE, Dosing Weight 54.545, kg, Priority: STAT, Start date: 12/29/12 1:34:00, Stop date: 12/29/12 1:34:00 Ancef 0 No Spencer 1 gm, Memoria 8-31 Philip Merrill Route: l 06:16: IVPB, Drug Serena form: PDR/INJ, ONCE, Dosing Weight 54.545, kg, Priority: STAT, Start date: 12/29/12 1:16:00, Stop date: 12/29/12 1:16:00 gentamicin 2012-0 No Spencer 272 mg, Me moria + Sodium 8-31 Philip Merrill 6.8 mL, l Chloride 06:16: Route: Serena 0.9% IV 100 00 IVPB, mL ONCE, Dosing Weight 54.545, kg, Priority: STAT, Start date: 12/29/12 1:16:00, Stop date: 12/29/12 1:16:00 Ancef 0 No Spencer 1 gm, Memoria 8-31 Philip Merrill Route: l 06:16: IVPB, Drug Serena 00 form: PDR/INJ, ONCE, Dosing Weight 54.545, kg, Priority: STAT, Start date: 12/29/12 1:16:00, Stop date: 12/29/12 1:16:00 gentamicin 2012-0 No Spencer 272 mg, Me moria + Sodium 8-31 Philip Merrill 6.8 mL, l Chloride 06:16: Route: Serena 0.9% IV 100 00 IVPB, mL ONCE, Dosing Weight 54.545, kg, Priority: STAT, Start date: 12/29/12 1:16:00, Stop date: 12/29/12 1:16:00 Ancef 0 No Spencer 1 gm, Memoria 8-31 Philip Merrill Route: l 06:16: IVPB, Drug Serena 00 form: PDR/INJ, ONCE, Dosing Weight 54.545, kg, Priority: STAT, Start date: 12/29/12 1:16:00, Stop date: 12/29/12 1:16:00 gentamicin 2012-0 No Spencer 272 mg, Me moria + Sodium 8-31 Philip Merrill 6.8 mL, l Chloride 06:16: Route: Serena 0.9% IV 100 00 IVPB, mL ONCE, Dosing Weight 54.545, kg, Priority: STAT, Start date: 12/29/12 1:16:00, Stop date: 12/29/12 1:16:00 Ancef 0 No Spencer 1 gm, Memoria 8-31 Philip Merrill Route: l 06:16: IVPB, Drug Serena 00 form: PDR/INJ, ONCE, Dosing Weight 54.545, kg, Priority: STAT, Start date: 12/29/12 1:16:00, Stop date: 12/29/12 1:16:00 gentamicin 2012-0 No Spencer 272 mg, Me moria + Sodium 8-31 Philip Merrill 6.8 mL, l Chloride 06:16: Route: Serena 0.9% IV 100 00 IVPB, mL ONCE, Dosing Weight 54.545, kg, Priority: STAT, Start date: 12/29/12 1:16:00, Stop date: 12/29/12 1:16:00 Ancef 0 No Spencer 1 gm, Memoria 8-31 Philip Merrill Route: l 06:16: IVPB, Drug Bryson 00 form: PDR/INJ, ONCE, Dosing Weight 54.545, kg, Priority: STAT, Start date: 12/29/12 1:16:00, Stop date: 12/29/12 1:16:00 gentamicin 2012-0 No Spencer 272 mg, Me moria + Sodium 8-31 Philip Merrill 6.8 mL, l Chloride 06:16: Route: Serena 0.9% IV 100 00 IVPB, mL ONCE, Dosing Weight 54.545, kg, Priority: STAT, Start date: 12/29/12 1:16:00, Stop date: 12/29/12 1:16:00 Ancef 0 No Spencer 1 gm, Memoria 8-31 Philip Merrill Route: l 06:16: IVPB, Drug Bryson 00 form: PDR/INJ, ONCE, Dosing Weight 54.545, kg, Priority: STAT, Start date: 12/29/12 1:16:00, Stop date: 12/29/12 1:16:00 gentamicin 2012-0 No Spencer 272 mg, Me moria + Sodium 8-31 Philip Merrill 6.8 mL, l Chloride 06:16: Route: Bryson 0.9% IV 100 00 IVPB, mL ONCE, Dosing Weight 54.545, kg, Priority: STAT, Start date: 12/29/12 1:16:00, Stop date: 12/29/12 1:16:00 Ancef 2012-0 No Spencer 1 gm, Memoria 8-31 Philip Merrill Route: l 06:16: IVPB, Drug Bryson 00 form: PDR/INJ, ONCE, Dosing Weight 54.545, kg, Priority: STAT, Start date: 12/29/12 1:16:00, Stop date: 12/29/12 1:16:00 gentamicin 2012-0 No Spencer 272 mg, Me moria + Sodium 8-31 Philip Merrill 6.8 mL, l Chloride 06:16: Route: Bryson 0.9% IV 100 00 IVPB, mL ONCE, Dosing Weight 54.545, kg, Priority: STAT, Start date: 12/29/12 1:16:00, Stop date: 12/29/12 1:16:00 Ancef 0 No Spencer 1 gm, Memoria 8- Philip Merrill Route: l 06:16: IVPB, Drug Bryson 00 form: PDR/INJ, ONCE, Dosing Weight 54.545, kg, Priority: STAT, Start date: 12/29/12 1:16:00, Stop date: 12/29/12 1:16:00 gentamicin 0 No Spencer 272 mg, Me moria + Sodium 8-31 Philip Merrill 6.8 mL, l Chloride 06:16: Route: Bryson 0.9% IV 100 00 IVPB, mL ONCE, Dosing Weight 54.545, kg, Priority: STAT, Start date: 12/29/12 1:16:00, Stop date: 12/29/12 1:16:00 lidocaine-e 2012-0 No Spencre 1 ml, Mem oria pi 8- Philip Merrill Route: l 1%-[id number] 05:42: SUB-Q, Herm boaz 00 Drug Form: SOLN, Dosing Weight 54.545, kg, ONCE, STAT, Start date: 12/29/12 0:42:00, Stop date: 12/29/12 0:42:00 lidocaine-e No Spencer 1 ml, Mem oria pi 8 Philip Merrill Route: l 1%-1:[id number] 05:42: SUB-Q, Herm boaz 00 Drug Form: SOLN, Dosing Weight 54.545, kg, ONCE, STAT, Start date: 12/29/12 0:42:00, Stop date: 12/29/12 0:42:00 lidocaine-e No Spencer 1 ml, Mem oria pi 8 Philip Merrill Route: l 1%-1:[id number] 05:42: SUB-Q, Herm boaz 00 Drug Form: SOLN, Dosing Weight 54.545, kg, ONCE, STAT, Start date: 12/29/12 0:42:00, Stop date: 12/29/12 0:42:00 lidocaine-e No Spencer 1 ml, Mem oria pi 12-29 Philip Merrill Route: l 1%-1:[id number] 05:42: SUB-Q, Herm boaz 00 Drug Form: SOLN, Dosing Weight 54.545, kg, ONCE, STAT, Start date: 12/29/12 0:42:00, Stop date: 12/29/12 0:42:00 lidocaine-e No Spencer 1 ml, Mem oria pi 8 Philip Merrill Route: l 1%-1:[id number] 05:42: SUB-Q, Herm boaz 00 Drug Form: SOLN, Dosing Weight 54.545, kg, ONCE, STAT, Start date: 12/29/12 0:42:00, Stop date: 12/29/12 0:42:00 lidocaine-e No Spencer 1 ml, Mem oria pi 8- Philip Merrill Route: l 1%-1:[id number] 05:42: SUB-Q, Herm boaz 00 Drug Form: SOLN, Dosing Weight 54.545, kg, ONCE, STAT, Start date: 12/29/12 0:42:00, Stop date: 12/29/12 0:42:00 lidocaine-e 2013-0 No Spencer 1 ml, Mem oria pi 8-31 Philip Merrill Route: l 1%-1:[id number] 05:42: SUB-Q, Herm boaz 00 Drug Form: SOLN, Dosing Weight 54.545, kg, ONCE, STAT, Start date: 12/29/12 0:42:00, Stop date: 12/29/12 0:42:00 lidocaine-e 2012-0 No Spencer 1 ml, Mem oria pi 8-31 Philip Merrill Route: l 1%-1:[id number] 05:42: SUB-Q, Herm boaz 00 Drug Form: SOLN, Dosing Weight 54.545, kg, ONCE, STAT, Start date: 12/29/12 0:42:00, Stop date: 12/29/12 0:42:00 Dilaudid 2012-0 No Spencer 2 mg, 1 Magdaleno pilo 8-31 Philip Merrill mL, Route: l 05:41: IV, Drug Serena 00 form: INJ, ONCE, Dosing Weight 54.545, kg, Start date: 12/29/12 0:41:00, Stop date: 12/29/12 0:41:00 Dilaudid 2012-0 No Spencer 2 mg, 1 Magdaleno pilo 8-31 Philip Merrill mL, Route: l 05:41: IV, Drug Serena 00 form: INJ, ONCE, Dosing Weight 54.545, kg, Start date: 12/29/12 0:41:00, Stop date: 12/29/12 0:41:00 Dilaudid 2012-0 No Spencer 2 mg, 1 Magdaleno pilo 8-31 Philip Merrill mL, Route: l 05:41: IV, Drug Serena 00 form: INJ, ONCE, Dosing Weight 54.545, kg, Start date: 12/29/12 0:41:00, Stop date: 12/29/12 0:41:00 Dilaudid 2012-0 No Spencer 2 mg, 1 Magdaleno pilo 8-31 Philip Merrill mL, Route: l 05:41: IV, Drug Serena 00 form: INJ, ONCE, Dosing Weight 54.545, kg, Start date: 12/29/12 0:41:00, Stop date: 12/29/12 0:41:00 Dilaudid 2013-0 No Spencer 2 mg, 1 Magdaleno pilo 8-31 Philip Merrill mL, Route: l 05:41: IV, Drug Serena 00 form: INJ, ONCE, Dosing Weight 54.545, kg, Start date: 12/29/12 0:41:00, Stop date: 12/29/12 0:41:00 Dilaudid 2012-0 No Spencer 2 mg, 1 Magdaleno pilo 8-31 Philip Merrill mL, Route: l 05:41: IV, Drug Bryson 00 form: INJ, ONCE, Dosing Weight 54.545, kg, Start date: 12/29/12 0:41:00, Stop date: 12/29/12 0:41:00 Dilaudid 2012-0 No Spencer 2 mg, 1 Magdaleno pilo 8-31 Philip Merrill mL, Route: l 05:41: IV, Drug Serena 00 form: INJ, ONCE, Dosing Weight 54.545, kg, Start date: 12/29/12 0:41:00, Stop date: 12/29/12 0:41:00 Dilaudid 2012-0 No Spencer 2 mg, 1 Magdaleno pilo 8-31 Philip Merrill mL, Route: l 05:41: IV, Drug Serena 00 form: INJ, ONCE, Dosing Weight 54.545, kg, Start date: 12/29/12 0:41:00, Stop date: 12/29/12 0:41:00 Dilaudid 2012-0 No Spencer 1 mg, 0.5 Me moria 8-31 Philip Merrill mL, Route: l 04:19: IV, Drug Bryson 00 form: INJ, ONCE, Dosing Weight 54.545, kg, Start date: 12/28/12 23:19:00, Stop date: 12/28/12 23:19:00 Dilaudid 2012-0 No Spencer 1 mg, 0.5 Me moria 8-31 Philip Merrill mL, Route: l 04:19: IV, Drug Bryson 00 form: INJ, ONCE, Dosing Weight 54.545, kg, Start date: 12/28/12 23:19:00, Stop date: 12/28/12 23:19:00 Dilaudid 2012-0 No Spencer 1 mg, 0.5 Me moria 8-31 Philip Merrill mL, Route: l 04:19: IV, Drug Bryson 00 form: INJ, ONCE, Dosing Weight 54.545, kg, Start date: 12/28/12 23:19:00, Stop date: 12/28/12 23:19:00 Dilaudid 2012-0 No Spencer 1 mg, 0.5 Me moria 8-31 Philip Merrill mL, Route: l 04:19: IV, Drug Serena 00 form: INJ, ONCE, Dosing Weight 54.545, kg, Start date: 12/28/12 23:19:00, Stop date: 12/28/12 23:19:00 Dilaudid 2012-0 No Spencer 1 mg, 0.5 Me moria 8-31 Philip Merrill mL, Route: l 04:19: IV, Drug Serena 00 form: INJ, ONCE, Dosing Weight 54.545, kg, Start date: 12/28/12 23:19:00, Stop date: 12/28/12 23:19:00 Dilaudid 0 No Spencer 1 mg, 0.5 Me moria 8-31 Philip Merrill mL, Route: l 04:19: IV, Drug Bryson 00 form: INJ, ONCE, Dosing Weight 54.545, kg, Start date: 12/28/12 23:19:00, Stop date: 12/28/12 23:19:00 Dilaudid 0 No Spencer 1 mg, 0.5 Me moria 8-31 Philip Merrill mL, Route: l 04:19: IV, Drug Bryson 00 form: INJ, ONCE, Dosing Weight 54.545, kg, Start date: 12/28/12 23:19:00, Stop date: 12/28/12 23:19:00 Dilaudid 2012-0 No Spencer 1 mg, 0.5 Me moria 8-31 Philip Merrill mL, Route: l 04:19: IV, Drug Serena 00 form: INJ, ONCE, Dosing Weight 54.545, kg, Start date: 12/28/12 23:19:00, Stop date: 12/28/12 23:19:00 Sodium 2012-0 No Spencer IV, 1000 Memor ia Chloride 8-31 Philip Merrill ml/hr, l 0.9% IV 03:30: Q1H, Start Herm date: 12/28/12 22:30:00, Duration: 2, 1,000 ml Sodium 2013-0 No Spencer IV, 1000 Memor ia Chloride 8-31 Philip Merrill ml/hr, l 0.9% IV 03:30: Q1H, Start Herm date: 12/28/12 22:30:00, Duration: 2, 1,000 ml Sodium 2013-0 No Spencer IV, 1000 Memor ia Chloride 8-31 Philip Merrill ml/hr, l 0.9% IV 03:30: Q1H, Start Herm date: 12/28/12 22:30:00, Duration: 2, 1,000 ml Sodium 2013-0 No Spencer IV, 1000 Memor ia Chloride 8-31 Philip Merrill ml/hr, l 0.9% IV 03:30: Q1H, Start Herm date: 12/28/12 22:30:00, Duration: 2, 1,000 ml Sodium 2013-0 No Spencer IV, 1000 Memor ia Chloride 8-31 Philip Merrill ml/hr, l 0.9% IV 03:30: Q1H, Start Herm date: 12/28/12 22:30:00, Duration: 2, 1,000 ml Sodium 2013-0 No Spencer IV, 1000 Memor ia Chloride 8-31 Philip Merrill ml/hr, l 0.9% IV 03:30: Q1H, Start Herm date: 12/28/12 22:30:00, Duration: 2, 1,000 ml Sodium 2013-0 No Spencer IV, 1000 Memor ia Chloride 8-31 Philip Merrill ml/hr, l 0.9% IV 03:30: Q1H, Start Herm date: 12/28/12 22:30:00, Duration: 2, 1,000 ml Sodium 2013-0 No Spencer IV, 1000 Memor ia Chloride 8-31 Philip Merrill ml/hr, l 0.9% IV 03:30: Q1H, Start Herm date: 12/28/12 22:30:00, Duration: 2, 1,000 ml morphine 2012-0 No Spencer 4 mg, Memori a Sulfate 8-31 Philip Merrill Route: l 03:14: IVP, Drug Serena 00 form: INJ, ONCE, Dosing Weight 54.545, kg, Priority: STAT, Start date: 12/28/12 22:14:00, Stop date: 12/28/12 22:14:00 morphine 2012-0 No Spencer 4 mg, Memori a Sulfate 8-31 Philip Merrill Route: l 03:14: IVP, Drug Bryson 00 form: INJ, ONCE, Dosing Weight 54.545, kg, Priority: STAT, Start date: 12/28/12 22:14:00, Stop date: 12/28/12 22:14:00 morphine 2012-0 No Spencer 4 mg, Memori a Sulfate 8-31 Philip Merrill Route: l 03:14: IVP, Drug Serena 00 form: INJ, ONCE, Dosing Weight 54.545, kg, Priority: STAT, Start date: 12/28/12 22:14:00, Stop date: 12/28/12 22:14:00 morphine 2012-0 No Spencer 4 mg, Memori a Sulfate 8-31 Philip Merrill Route: l 03:14: IVP, Drug Bryson 00 form: INJ, ONCE, Dosing Weight 54.545, kg, Priority: STAT, Start date: 12/28/12 22:14:00, Stop date: 12/28/12 22:14:00 morphine 2012-0 No Spencer 4 mg, Memori a Sulfate 8-31 Philip Merrill Route: l 03:14: IVP, Drug Serena 00 form: INJ, ONCE, Dosing Weight 54.545, kg, Priority: STAT, Start date: 12/28/12 22:14:00, Stop date: 12/28/12 22:14:00 morphine 2012-0 No Spencer 4 mg, Memori a Sulfate 8-31 Philip Merrill Route: l 03:14: IVP, Drug Bryson 00 form: INJ, ONCE, Dosing Weight 54.545, kg, Priority: STAT, Start date: 12/28/12 22:14:00, Stop date: 12/28/12 22:14:00 morphine 2012-0 No Spencer 4 mg, Memori a Sulfate 8-31 Philip Merrill Route: l 03:14: IVP, Drug Bryson 00 form: INJ, ONCE, Dosing Weight 54.545, kg, Priority: STAT, Start date: 12/28/12 22:14:00, Stop date: 12/28/12 22:14:00 morphine 2012-0 No Spencer 4 mg, Memori a Sulfate 8-31 Philip Merrill Route: l 03:14: IVP, Drug Bryson 00 form: INJ, ONCE, Dosing Weight 54.545, kg, Priority: STAT, Start date: 12/28/12 22:14:00, Stop date: 12/28/12 22:14:00 NS 2000 mL 2012-0 No Spencer 2,000 mL, Memoria 8-31 Philip Merrill Rate: l 02:58: 2,000 Serena 00 ml/hr, Infuse over: 1 hr, Route: IV, Dosing Weight 54.545 kg, Total Volume: 2,000, Start date: 12/28/12 21:58:00, Duration: 1 doses or times, Stop date: 12/28/12 22:57:00, Bolus DoseBolus Dose NS 2000 mL 2012-0 No Spencer 2,000 mL, Memoria 8-31 Philip Merrill Rate: l 02:58: 2,000 Bryson 00 ml/hr, Infuse over: 1 hr, Route: IV, Dosing Weight 54.545 kg, Total Volume: 2,000, Start date: 12/28/12 21:58:00, Duration: 1 doses or times, Stop date: 12/28/12 22:57:00, Bolus DoseBolus Dose NS 2000 mL 2012-0 No Spencer 2,000 mL, Memoria 8-31 Philip Merrill Rate: l 02:58: 2,000 Bryson 00 ml/hr, Infuse over: 1 hr, Route: IV, Dosing Weight 54.545 kg, Total Volume: 2,000, Start date: 12/28/12 21:58:00, Duration: 1 doses or times, Stop date: 12/28/12 22:57:00, Bolus DoseBolus Dose NS 2000 mL 2012-0 No Spencer 2,000 mL, Memoria 8-31 Philip Merrill Rate: l 02:58: 2,000 Serena 00 ml/hr, Infuse over: 1 hr, Route: IV, Dosing Weight 54.545 kg, Total Volume: 2,000, Start date: 12/28/12 21:58:00, Duration: 1 doses or times, Stop date: 12/28/12 22:57:00, Bolus DoseBolus Dose NS 2000 mL 2012-0 No Spencer 2,000 mL, Memoria 8-31 Philip Merrill Rate: l 02:58: 2,000 Bryson 00 ml/hr, Infuse over: 1 hr, Route: IV, Dosing Weight 54.545 kg, Total Volume: 2,000, Start date: 12/28/12 21:58:00, Duration: 1 doses or times, Stop date: 12/28/12 22:57:00, Bolus DoseBolus Dose NS 2000 mL 2012-0 No Spencer 2,000 mL, Memoria 8-31 Philip Merrill Rate: l 02:58: 2,000 Serena 00 ml/hr, Infuse over: 1 hr, Route: IV, Dosing Weight 54.545 kg, Total Volume: 2,000, Start date: 12/28/12 21:58:00, Duration: 1 doses or times, Stop date: 12/28/12 22:57:00, Bolus DoseBolus Dose NS 2000 mL 2012-0 No Spencer 2,000 mL, Memoria 8-31 Philip Merrill Rate: l 02:58: 2,000 Serena 00 ml/hr, Infuse over: 1 hr, Route: IV, Dosing Weight 54.545 kg, Total Volume: 2,000, Start date: 12/28/12 21:58:00, Duration: 1 doses or times, Stop date: 12/28/12 22:57:00, Bolus DoseBolus Dose NS 2000 mL 2012-0 No Spencer 2,000 mL, Memoria 8-31 Philip Merrill Rate: l 02:58: 2,000 Serena 00 ml/hr, Infuse over: 1 hr, Route: IV, Dosing Weight 54.545 kg, Total Volume: 2,000, Start date: 12/28/12 21:58:00, Duration: 1 doses or times, Stop date: 12/28/12 22:57:00, Bolus DoseBolus Dose Visipaque No Spencer 63 mL, Magdaleno pilo 320mg/ml 8-31 Philip Merrill Route: l 01:59: IVP, Drug Bryson Form: SOLN, kg, ONCALL, STAT, Start date: 12/28/12 20:59:00, Duration: 1 doses or times, Weight = 40 - 59kg -- "To be infused by Radiology Staff ONLY"Weigh t = 40 - 59kg -- "To be infused by Radiology Staff ONLY" Visipaque No Spencer 63 mL, Magdaleno pilo 320mg/ml 8-31 Philip Merrill Route: l 01:59: IVP, Drug Serena Form: SOLN, kg, ONCALL, STAT, Start date: 12/28/12 20:59:00, Duration: 1 doses or times, Weight = 40 - 59kg -- "To be infused by Radiology Staff ONLY"Weigh t = 40 - 59kg -- "To be infused by Radiology Staff ONLY" Visipaque No Spencer 63 mL, Magdaleno pilo 320mg/ml 8-31 Philip Merrill Route: l 01:59: IVP, Drug Bryson Form: SOLN, kg, ONCALL, STAT, Start date: 12/28/12 20:59:00, Duration: 1 doses or times, Weight = 40 - 59kg -- "To be infused by Radiology Staff ONLY"Weigh t = 40 - 59kg -- "To be infused by Radiology Staff ONLY" Visipaque No Spencer 63 mL, Magdaleno pilo 320mg/ml 8-31 Philip Merrill Route: l 01:59: IVP, Drug Bryson Form: SOLN, kg, ONCALL, STAT, Start date: 12/28/12 20:59:00, Duration: 1 doses or times, Weight = 40 - 59kg -- "To be infused by Radiology Staff ONLY"Weigh t = 40 - 59kg -- "To be infused by Radiology Staff ONLY" Visipaque No Spencer 63 mL, Magdaleno pilo 320mg/ml 8-31 Philip Merrill Route: l 01:59: IVP, Drug Serena 00 Form: SOLN, kg, ONCALL, STAT, Start date: 12/28/12 20:59:00, Duration: 1 doses or times, Weight = 40 - 59kg -- "To be infused by Radiology Staff ONLY"Weigh t = 40 - 59kg -- "To be infused by Radiology Staff ONLY" Visipaque No Spencer 63 mL, Magdaleno pilo 320mg/ml 8-31 Philip Merrill Route: l 01:59: IVP, Drug Serena Form: SOLN, kg, ONCALL, STAT, Start date: 12/28/12 20:59:00, Duration: 1 doses or times, Weight = 40 - 59kg -- "To be infused by Radiology Staff ONLY"Weigh t = 40 - 59kg -- "To be infused by Radiology Staff ONLY" Visipaque No Spencer 63 mL, Magdaleno pilo 320mg/ml 8-31 Philip Merrill Route: l 01:59: IVP, Drug Bryson 00 Form: SOLN, kg, ONCALL, STAT, Start date: 12/28/12 20:59:00, Duration: 1 doses or times, Weight = 40 - 59kg -- "To be infused by Radiology Staff ONLY"Weigh t = 40 - 59kg -- "To be infused by Radiology Staff ONLY" Visipaque No Spencer 63 mL, Magdaleno pilo 320mg/ml 8-31 Philip Merrill Route: l 01:59: IVP, Drug Bryson Form: SOLN, kg, ONCALL, STAT, Start date: 12/28/12 20:59:00, Duration: 1 doses or times, Weight = 40 - 59kg -- "To be infused by Radiology Staff ONLY"Weigh t = 40 - 59kg -- "To be infused by Radiology Staff ONLY" morphine No Spencer 4 mg, 1 Magdaleno pilo Sulfate 8-31 Philip Merrill mL, Route: l 01:56: IVP, Drug Bryson form: INJ, ONCE, kg, Priority: STAT, Start date: 12/28/12 20:56:00, Stop date: 12/28/12 20:56:00 ondansetron No Spencer 4 mg, 2 M emoria 8-31 Philip Merrill mL, Route: l 01:56: IVP, Drug Serena form: INJ, ONCE, kg, Priority: STAT, Start date: 12/28/12 20:56:00, Stop date: 12/28/12 20:56:00 Saline 2012-0 No Spencer 5 ml, Memoria Flush 0.9% 8-31 Philip Merrill Route: l 01:56: IVP, Drug Bryson 00 Form: INJ, kg, PRN, PRN Line Flush, Administer at least once every 12 hours, Start date: 12/28/12 20:56:00, Duration: 30 day, Stop date: 01/27/13 20:55:00 morphine 2012-0 No Spencer 4 mg, 1 Magdaleno pilo Sulfate 8-31 Philip Merrill mL, Route: l 01:56: IVP, Drug Bryson 00 form: INJ, ONCE, kg, Priority: STAT, Start date: 12/28/12 20:56:00, Stop date: 12/28/12 20:56:00 ondansetron 2012-0 No Spencer 4 mg, 2 M emoria 8-31 Philip Merrill mL, Route: l 01:56: IVP, Drug Bryson 00 form: INJ, ONCE, kg, Priority: STAT, Start date: 12/28/12 20:56:00, Stop date: 12/28/12 20:56:00 Saline 2012-0 No Spencer 5 ml, Memoria Flush 0.9% 8-31 Philip Merrill Route: l 01:56: IVP, Drug Bryson 00 Form: INJ, kg, PRN, PRN Line Flush, Administer at least once every 12 hours, Start date: 12/28/12 20:56:00, Duration: 30 day, Stop date: 01/27/13 20:55:00 morphine 2012-0 No Spencer 4 mg, 1 Magdaleno pilo Sulfate 8-31 Philip Merrill mL, Route: l 01:56: IVP, Drug Bryson 00 form: INJ, ONCE, kg, Priority: STAT, Start date: 12/28/12 20:56:00, Stop date: 12/28/12 20:56:00 ondansetron 2012-0 No Spencer 4 mg, 2 M emoria 8-31 Philip Merrill mL, Route: l 01:56: IVP, Drug Serena 00 form: INJ, ONCE, kg, Priority: STAT, Start date: 12/28/12 20:56:00, Stop date: 12/28/12 20:56:00 Saline 2012-0 No Spencer 5 ml, Memoria Flush 0.9% 8-31 Philip Merrill Route: l 01:56: IVP, Drug Serena 00 Form: INJ, kg, PRN, PRN Line Flush, Administer at least once every 12 hours, Start date: 12/28/12 20:56:00, Duration: 30 day, Stop date: 01/27/13 20:55:00 morphine 2012-0 No Spencer 4 mg, 1 Magdaleno pilo Sulfate 8-31 Philip Merrill mL, Route: l 01:56: IVP, Drug Serena 00 form: INJ, ONCE, kg, Priority: STAT, Start date: 12/28/12 20:56:00, Stop date: 12/28/12 20:56:00 ondansetron 2012-0 No Spencer 4 mg, 2 M [facility] 8-31 Philip Merrill mL, Route: l 01:56: IVP, Drug Bryson 00 form: INJ, ONCE, kg, Priority: STAT, Start date: 12/28/12 20:56:00, Stop date: 12/28/12 20:56:00 Saline 2012-0 No Spencer 5 ml, Memoria Flush 0.9% 8- Philip Merrill Route: l 01:56: IVP, Drug Serena 00 Form: INJ, kg, PRN, PRN Line Flush, Administer at least once every 12 hours, Start date: 12/28/12 20:56:00, Duration: 30 day, Stop date: 01/27/13 20:55:00 morphine 2012-0 No Spencer 4 mg, 1 Magdaleno pilo Sulfate 8-31 Philip Merrill mL, Route: l 01:56: IVP, Drug Serena 00 form: INJ, ONCE, kg, Priority: STAT, Start date: 12/28/12 20:56:00, Stop date: 12/28/12 20:56:00 ondansetron 2012-0 No Spencer 4 mg, 2 M emoria 8-31 Philip Merrill mL, Route: l 01:56: IVP, Drug Serena 00 form: INJ, ONCE, kg, Priority: STAT, Start date: 12/28/12 20:56:00, Stop date: 12/28/12 20:56:00 Saline 2012-0 No Spencer 5 ml, Memoria Flush 0.9% 8-31 Philip Merrill Route: l 01:56: IVP, Drug Serena Form: INJ, kg, PRN, PRN Line Flush, Administer at least once every 12 hours, Start date: 12/28/12 20:56:00, Duration: 30 day, Stop date: 01/27/13 20:55:00 morphine 2012-0 No Spencer 4 mg, 1 Magdaleno pilo Sulfate 8-31 Philip Merrill mL, Route: l 01:56: IVP, Drug Serena form: INJ, ONCE, kg, Priority: STAT, Start date: 12/28/12 20:56:00, Stop date: 12/28/12 20:56:00 ondansetron 2012-0 No Spencer 4 mg, 2 M emoria 8-31 Philip Merrill mL, Route: l 01:56: IVP, Drug Bryson 00 form: INJ, ONCE, kg, Priority: STAT, Start date: 12/28/12 20:56:00, Stop date: 12/28/12 20:56:00 Saline 2012-0 No Spencer 5 ml, Memoria Flush 0.9% 8-31 Philip Merrill Route: l 01:56: IVP, Drug Serena Form: INJ, kg, PRN, PRN Line Flush, Administer at least once every 12 hours, Start date: 12/28/12 20:56:00, Duration: 30 day, Stop date: 01/27/13 20:55:00 morphine 2012-0 No Spencer 4 mg, 1 Magdaleno pilo Sulfate 8-31 Philip Merrill mL, Route: l 01:56: IVP, Drug Serena 00 form: INJ, ONCE, kg, Priority: STAT, Start date: 12/28/12 20:56:00, Stop date: 12/28/12 20:56:00 ondansetron 2012-0 No Spencer 4 mg, 2 M emoria 8-31 Philip Merrill mL, Route: l 01:56: IVP, Drug Bryson 00 form: INJ, ONCE, kg, Priority: STAT, Start date: 12/28/12 20:56:00, Stop date: 12/28/12 20:56:00 Saline 2012-0 No Spencer 5 ml, Memoria Flush 0.9% - Philip Merrill Route: l 01:56: IVP, Drug Serena 00 Form: INJ, kg, PRN, PRN Line Flush, Administer at least once every 12 hours, Start date: 12/28/12 20:56:00, Duration: 30 day, Stop date: 01/27/13 20:55:00 morphine 2012-0 No Spencer 4 mg, 1 Magdaleno pilo Sulfate 12-29 Philip Merrill mL, Route: l 01:56: IVP, Drug Bryson form: INJ, ONCE, kg, Priority: STAT, Start date: 12/28/12 20:56:00, Stop date: 12/28/12 20:56:00 ondansetron 2012-0 No Spencer 4 mg, 2 M emoria -31 Philip Merrill mL, Route: l 01:56: IVP, Drug Serena form: INJ, ONCE, kg, Priority: STAT, Start date: 12/28/12 20:56:00, Stop date: 12/28/12 20:56:00 Saline 2012-0 No Spencer 5 ml, Memoria Flush 0.9% 12-29 Philip Merrill Route: l 01:56: IVP, Drug Bryson Form: INJ, kg, PRN, PRN Line Flush, Administer at least once every 12 hours, Start date: 12/28/12 20:56:00, Duration: 30 day, Stop date: 01/27/13 20:55:00 Vital Signs Vital Name Observation Time Observation Value Comments Source Systolic blood 2021-05-30 118 mm[Hg] [facility] pressure 08:21:00 [facility] Diastolic blood 2021-05-30 79 mm[Hg] [place] o pressure 08:21:00 [facility] Heart rate 2021-05-30 91 /min [facility] 08:21:00 [facility] Body temperature 2021-05-30 36.83 Sarah Beth [facility] 08:21:00 [facility] Respiratory rate 2021-05-30 20 /min [facility] 08:21:00 [facility] Body weight 2021-05-30 56.7 kg [facility] 08:21:00 [facility] BMI 2021-05-30 18.46 kg/m2 [facility] 08:21:00 [facility] Oxygen saturation 2021-05-30 100 /min [facility] in Arterial blood 08:21:00 [facility] by Pulse oximetry [place] Systolic blood 2022-04-28 128 mm[Hg] [facility] pressure 01:20: [facility] Diastolic blood 2022-04-28 75 mm[Hg] [facility] pressure 01:20: [facility] Heart rate 2022-04-28 78 /min [facility] 01:20: [facility] Body temperature 2022-04-28 36.22 Sarah Beth [facility] 01:20: [facility] Respiratory rate 2022-04-28 17 /min [facility] 01:20: [facility] Oxygen saturation 2022-04-28 98 /min [facility] in Arterial blood 01:20:01 [facility] by Pulse oximetry Body height 2022-04-27 175.3 cm [facility] 22:09:00 [facility] Body weight 2022-04-27 63.504 kg [facility] 22:09: [facility] BMI 2022-04-27 20.67 kg/m2 [facility] 22:09:00 [facility] Systolic blood 2022-03-29 120 mm[Hg] [facility] pressure 16:21:00 Diastolic blood 2022-03-29 87 mm[Hg] [facility]00 Heart rate 2022-03-29 98 /min [facility] 16:21:00 Body temperature 2022-03-29 36.28 [facility] 16:21:00 Respiratory rate 2022-03-29 17 /min [facility] th 16:21:00 Oxygen saturation 2022-03-29 99 /min [facility] in Arterial blood 16:21:00 by Pulse oximetry Systolic blood 2022-03-10 105 mm[Hg] [facility] pressure 22:00:00 Diastolic blood 2022-03-10 76 mm[Hg] [facility] 22:[facility]00 Heart rate 2022-03-10 64 /min [facility] 22:00:00 Respiratory rate 2022-03-10 18 /min [facility] 22:00:00 Oxygen saturation 2022-03-10 99 /min Christian Quintanillaa lt in Arterial blood 22:00:00 by Pulse oximetry Body temperature 2022-03-10 36.67 Sarah Beth [facility] 19:29:00 Body height 2022-03-[address] [facility] 05:39:00 Body weight 2022-03-[address] [facility] 05:39:00 BMI 2022-03-10 19.20 kg/m2 [facility] 05:39:00 Systolic blood 2022-03-09 120 mm[Hg] [facility] 22:42:22 Hospital Diastolic blood 2022-03-09 79 mm[Hg] [facility] 22:42:22 Hospital Heart rate 2022-03-09 73 /min [facility] 22:42:22 Hospital Body temperature 2022-03-09 36.89 Sarah Beth [facility] 22:42:22 Hospital Respiratory rate 2022-03-09 20 /min [facility] 22:42:22 Hospital Oxygen saturation 2022-03-09 96 /min [facility] in Arterial blood 22:42:22 Hospital by Pulse oximetry Body height 2022-03-09 172.7 cm [facility] 22:40:00 Hospital Body weight 2022-03-09 62.596 kg [facility] 22:40:00 Hospital BMI 2022-03-09 20.98 kg/m2 [facility] 22:40:00 [facility] Systolic blood 2022-02-04 108 mm[Hg] [facility] pressure 23:16:00 Diastolic blood 2022-02-04 71 mm[Hg] [facility] pressure 23:16:00 Heart rate 2022-02-04 59 /min Notify RN Jazmine [facility] 23:16:00 Body temperature 2022-02-04 36.56 Sarah Beth [facility] 23:16:00 Respiratory rate 2022-02-04 19 /min [facility] 23:16:00 Oxygen saturation 2022-02-04 100 /min Christian Farrell lt in Arterial blood 23:16:00 by Pulse oximetry Body height 2022-02-[address] [facility] 09:28:00 Body weight 2022-02-[address] [facility] 09:28:00 BMI 2022-02-04 21.42 kg/m2 [facility] 09:28:00 Systolic blood 2022-01-13 122 mm[Hg] [facility] 02:14:00 Hospital Diastolic blood 2022-01-13 84 mm[Hg] [facility] 02:14:00 Hospital Heart rate 2022-01-13 79 /min [facility] 02:14:00 Hospital Body temperature 2022-01-13 36.56 Sarah Beth [facility] 02:14:00 Hospital Respiratory rate 2022-01-13 16 /min [facility] 02:14:00 Hospital Oxygen saturation 2022-01-13 95 /min [facility] in Arterial blood 02:14:00 Hospital by Pulse oximetry Systolic (mm Hg) 2019-12-15 [facility] rmann 06:24:00 Diastolic (mm Hg) 2019-12-15 [facility] ermann 06:24:00 Respitory Rate 2019-12-15 [facility] 06:24:00 Temperature Oral 2019-12-15 99 F [facility] rmann (F) 06:24:00 Respitory Rate 2019-12-15 [facility] 06:03:00 Respitory Rate 2019-12-15 [facility] 04:44:00 Systolic (mm Hg) 2019-12-15 [facility] rmann 04:44:00 Diastolic (mm Hg) 2019-12-15 [facility] ermann 04:44:00 Systolic (mm Hg) 2019-12-15 [facility] rmann 04:25:00 Diastolic (mm Hg) 2019-12-15 [facility] ermann 04:25:00 Heart Rate 2019-12-15 [facility] Abdiaziz n 04:25:00 Temperature Oral 2019-12-15 99.7 F [facility] rmann (F) 04:25:00 Systolic (mm Hg) 2018-04-18 [facility] rmann 16:28:00 Diastolic (mm Hg) 2018-04-18 [facility] ermann 16:28:00 Respitory Rate 2018-04-18 [facility] 16:28:00 Temperature Oral 2018-04-18 98.0 F [facility] rmann (F) 16:28:00 Systolic (mm Hg) 2018-04-18 [facility] rmann 15:12:00 Diastolic (mm Hg) 2018-04-18 [facility] ermann 15:12:00 Respitory Rate 2018-04-18 [facility] [...] 14:00:00 Temperature Oral 2018-04-14 97.5 F [facility] (F) 14:00:00 Systolic (mm Hg) 2018-04-14 [facility] 14:00:00 Diastolic (mm Hg) 2018-04-14 [facility] ermann 14:00:00 Heart Rate 2018-04-14 [facility] Abdiaziz n 10:00:00 Systolic (mm Hg) 2018-04-14 [facility] 10:00:00 Diastolic (mm Hg) 2018-04-14 [facility] 10:00:00 Temperature Oral 2018-04-14 98.4 F [facility] (F) 10:00:00 Heart Rate 2018-04-14 [facility] Abdiaziz n 06:00:00 Systolic (mm Hg) 2018-04-14 [facility] 06:00:00 Diastolic (mm Hg) 2018-04-14 [facility] ermann 06:00:00 Temperature Oral 2018-04-14 98.4 F [facility] rmann (F) 06:00:00 Respitory Rate 2018-04-13 [facility] [...] n 02:12:00 Temperature Oral 2016-01-14 98.5 F Jennifer Quintanilla rmann (F) 02:12:00 Heart Rate 2016-01-14 [facility] Abdiaziz n 02:12:00 Diastolic (mm Hg) 2012-12-31 [facility] 01:48:00 Systolic (mm Hg) 2012-12-31 [facility] 01:48:00 Respitory Rate 2012-12-31 [facility] 01:48:00 Heart Rate 2012-12-31 [facility] Abdiaziz n 01:48:00 Temperature Oral 2012-12-31 98.3 F [facility] rmann (F) 01:48:00 Diastolic (mm Hg) 2012-12-30 [facility] 20:21:00 Systolic (mm Hg) 2012-12-30 [facility] 20:21:00 Respitory Rate 2012-12-30 [facility] 20:21:00 Heart Rate 2012-12-30 [facility] Abdiaziz n 20:21:00 Temperature Oral 2012-12-30 97.5 F [facility] rmann (F) 20:21:00 Heart Rate 2012-12-30 [facility] Abdiaziz n 16:18:00 Temperature Oral 2012-12-30 97 F [facility] rmann (F) 16:18:00 Respitory Rate 2012-12-30 [facility] 16:18:00 Diastolic (mm Hg) 2012-12-30 [facility] 16:18:00 Systolic (mm Hg) 2012-12-30 [facility] r[facility] 16:18:00 Height 2012-12-29 175.26 cm [facility] Abdiaziz n 02:00:00 Weight 2012-12-29 [facility] Abdiaziz n 02:00:00 Procedures Procedure Date / Time Performing Clinician Source Performed RESPIRATORY PATHOGEN 2022-04-27 23:32:00 [facility] PANEL WITH COVID-19 [facility] RT-PCR INFLUENZA ANTIGEN 2022-04-27 23:32:00 [facility] GROUP A STREP, RAPID 2022-04-27 23:32:00 [facility] ANTIGEN [facility] STREP SCREEN CULTURE 2022-04-27 23:32:00 [facility] XR NECK SOFT TISSUE 2022-04-27 23:09:45 [facility] CHEST 2 VW 2022-04-27 23:09:20 Kwame Alanis [facility] VALPROIC ACID 2022-03-14 06:16:00 Holly Jarrell alth COMPREHENSIVE METABOLIC 2022-03-13 07:33:00 [facility] PANEL LIPID PROFILE 2022-03-13 07:33:00 Holly Jarrell alth HEMOGLOBIN A1C 2022-03-13 07:33:00 Holly Jarrell alth SYPHILIS MONITOR FOR 2022-03-13 07:33:00 [facility] TREATMENT THYROID STIMULATING 2022-03-13 07:33:00 Holly Jarrell [facility] HORMONE (TSH) HIV AG/AB COMBO ROUTINE 2022-03-13 07:33:00 [facility] SCREENING BMP POC 2022-03-10 11:48:00 Emre Acuna lt CREATININE POC 2022-03-10 11:47:00 Emre Acuna lt SARS-COV-2, FLU A/B, RSV 2022-03-10 11:35[facility] CORONAVIRUS, COVID-19, 2022-03-10 11:35:00 [facility], Kelly A [facility] PORTIA CBC WITH PLATELET AND 2022-03-09 23:22:00 [facility] DIFFERENTIAL BASIC METABOLIC PANEL 2022-03-09 23:22:00 [facility] ACETAMINOPHEN LEVEL 2022-03-09 23:22:00 [facility] SALICYLATE LEVEL 2022-03-09 23:22:00 [facility] ESTIMATED GFR 2022-03-09 23:22:00 [facility] XRAY CHEST 1 VIEW - TB 2022-03-05 05:15:14 [facility] SCREEN (AFFLIATE) SARS-COV-2 PCR RAPID TEST 2022-03-05 00:00:00 Provider, [facility] Med POC GLUCOSE-AFFILIATE 2022-03-05 00:00:00 Provider, Historical [facility] MANUALLY ENTERED Med POC GLUCOSE-AFFILIATE 2022-02-28 00:00:00 Provider, Historical [facility] MANUALLY ENTERED Med CONSULT CLINICAL CASE 2022-02-04 12:29:21 [facility] MANAGEMENT (RN/SW) XRAY FOOT 3 VIEWS MIN 2022-02-04 10:59:00 [facility] XRAY ANKLE 3 VIEW MIN 2022-02-04 10:59:00 [facility] URINE CULTURE 2022-01-13 05:32:00 Rehrer, [facility] URINE DRUGS OF ABUSE 2022-01-13 05:32:00 Rehrer, [facility] SCREEN URINALYSIS SCREEN AND 2022-01-13 05:32:00 Rehrer, [facility] MICROSCOPY, WITH REFLEX TO CULTURE COVID-19 QUALITATIVE 2022-01-13 03:52:00 Rehrer, [facility] RT-PCR COVID-19 OMICRON VARIANT 2022-01-13 03:52:00 Rehrer, [facility] QUALITATIVE RT-PCR CBC WITH PLATELET AND 2022-01-13 03:52:00 Rehrer, [facility] DIFFERENTIAL COMPREHENSIVE METABOLIC 2022-01-13 03:52:00 Rehrer, [facility] PANEL THYROID STIMULATING 2022-01-13 03:52:00 Rehrer, [facility] HORMONE T4, FREE 2022-01-13 03:52:00 Rehrer, [facility] ALCOHOL LEVEL, BLOOD 2022-01-13 03:52:00 Rehrer, [facility] ACETAMINOPHEN LEVEL 2022-01-13 03:52:00 Rehrer, [facility] SALICYLATE LEVEL 2022-01-13 03:52:00 Rehrer, [facility] ESTIMATED GFR 2022-01-13 03:52:00 Rehrer, [facility] ECG ED PRELIMINARY 2022-01-13 02:35:02 Rehrer, [facility] INTERPRETATION CONSULT CLINICAL CASE 2022-01-12 20:09:34 [facility] MANAGEMENT (RN/SW) ACETAMINOPHEN 2022-01-12 12:37:00 Inocencia Lozano [facility] 12 LEAD EKG 2022-01-12 11:30:22 Inocencia Lozano [facility] CONSENT/REFUSAL FOR 2021-05-30 08:08:34 Doctor Unassigned, [facility] DIAGNOSIS AND TREATMENT [facility] Plan of Care Planned Activity Planned Date Details Comments Source Future Scheduled 2022-06-19 COVID-19 VACCINE (#1) [facility] Test 02:52:36 [code = COVID-19 VACCINE (#1)] Future Scheduled 2022-06-19 Pneumococcal Vaccine: [facility] Hospital Test 02:52:36 Pediatrics (0 to 5 Years) and At-Risk Patients (6 to 64 Years) (1 - PCV) [code = Pneumococcal Vaccine: Pediatrics (0 to 5 Years) and At-Risk Patients (6 to 64 Years) (1 - PCV)] Future Scheduled 2022-06-19 Hepatitis C screening [facility] Hospital Test 02:52:36 (procedure) [code = 824794214] Future Scheduled 2022-06-19 INFLUENZA VACCINE Method is Hospital Test 02:52:36 [code = INFLUENZA VACCINE] Future Scheduled 2022-06-19 COVID-19 VACCINE (#1) [facility] Hospital Test 02:52:36 [code = COVID-19 VACCINE (#1)] Future Scheduled 2022-06-19 Pneumococcal Vaccine: [facility] Hospital Test 02:52:36 Pediatrics (0 to 5 Years) and At-Risk Patients (6 to 64 Years) (1 - PCV) [code = Pneumococcal Vaccine: Pediatrics (0 to 5 Years) and At-Risk Patients (6 to 64 Years) (1 - PCV)] Future Scheduled 2022-06-19 Hepatitis C screening [facility] Test 02:52:36 (procedure) [code = [id number]] Future Scheduled 2022-06-19 INFLUENZA VACCINE Method [facility] Test 02:52:36 [code = INFLUENZA VACCINE] Future Scheduled 2022-06-07 COVID-19 VACCINE (#1) [facility] Test 13:13:57 [code = COVID-19 VACCINE (#1)] Future Scheduled 2022-06-07 Pneumococcal Vaccine: [facility] Test 13:13:57 Pediatrics (0 to 5 Years) and At-Risk Patients (6 to 64 Years) (1 - PCV) [code = Pneumococcal Vaccine: Pediatrics (0 to 5 Years) and At-Risk Patients (6 to 64 Years) (1 - PCV)] Future Scheduled 2022-06-07 Hepatitis C screening [facility] Test 13:13:57 (procedure) [code = [id number]] Future Scheduled 2022-06-07 [facility] Test 13:13:57 [code = INFLUENZA VACCINE] Future Scheduled 2022-04-29 COVID-19 VACCINE (#1) [facility] Test 14:17:11 [code = COVID-19 VACCINE (#1)] Future Scheduled 2022-04-29 Pneumococcal Vaccine: [facility] Test 14:17:11 Pediatrics (0 to 5 Years) and At-Risk Patients (6 to 64 Years) (1 - PCV) [code = Pneumococcal Vaccine: Pediatrics (0 to 5 Years) and At-Risk Patients (6 to 64 Years) (1 - PCV)] Future Scheduled 2022-04-29 Hepatitis C screening [facility] Test 14:17:11 (procedure) [code = [id number]] Future Scheduled 2022-04-29 [facility]ACCINE [facility] Test 14:17:11 [code = INFLUENZA VACCINE] Future Scheduled 2022-04-14 COVID-19 VACCINE (#1) [facility] Test 22:41:37 [code = COVID-19 VACCINE (#1)] Future Scheduled 2022-04-14 Pneumococcal Vaccine: [facility] Test 22:41:37 Pediatrics (0 to 5 Years) and At-Risk Patients (6 to 64 Years) (1 - PCV) [code = Pneumococcal Vaccine: Pediatrics (0 to 5 Years) and At-Risk Patients (6 to 64 Years) (1 - PCV)] Future Scheduled 2022-04-14 Hepatitis C screening [facility] Test 22:41:37 (procedure) [code = [id number]] Future Scheduled 2022-04-14 [facility]ACCINE [facility] Test 22:41:37 [code = INFLUENZA VACCINE] Future Scheduled 2022-03-09 HEPATITIS B VACCINES [facility] Hospital Test 19:41:41 (1 of 3 - 3-dose series) [code = HEPATITIS B VACCINES (1 of 3 - 3-dose series)] Future Scheduled 2022-03-09 COVID-19 VACCINE (#1) [facility] Test 19:41:41 [code = COVID-19 VACCINE (#1)] Future Scheduled 2022-03-09 Pneumococcal Vaccine: [facility] Test 19:41:41 Pediatrics (0 to 5 Years) and At-Risk Patients (6 to 64 Years) (1 - PCV) [code = Pneumococcal Vaccine: Pediatrics (0 to 5 Years) and At-Risk Patients (6 to 64 Years) (1 - PCV)] Future Scheduled 2022-03-09 Hepatitis C screening [facility] Test 19:41:41 (procedure) [code = [id number]] Future Scheduled 2022-03-09 [facility]ACCINE [facility] Test 19:41:41 [code = INFLUENZA VACCINE] [...] Future Scheduled 2022-01-13 HEPATITIS B VACCINES Met [facility] Test 01:43:47 (1 of 3 - 3-dose series) [code = HEPATITIS B VACCINES (1 of 3 - 3-dose series)] Future Scheduled 2022-01-13 COVID-19 VACCINE (#1) [facility] Test 01:43:47 [code = COVID-19 VACCINE (#1)] Future Scheduled 2022-01-13 Pneumococcal Vaccine: [facility] Test 01:43:47 Pediatrics (0 to 5 Years) and At-Risk Patients (6 to 64 Years) (1 - PCV) [code = Pneumococcal Vaccine: Pediatrics (0 to 5 Years) and At-Risk Patients (6 to 64 Years) (1 - PCV)] Future Scheduled 2022-01-13 Hepatitis C screening [facility] Test 01:43:47 (procedure) [code = [id number]] Future Scheduled 2022-01-13 [facility]ACCINE [facility] Test 01:43:47 [code = INFLUENZA VACCINE] Future Scheduled 2022-01-13 HEPATITIS B VACCINES Met [facility] Test 01:43:47 (1 of 3 - 3-dose series) [code = HEPATITIS B VACCINES (1 of 3 - 3-dose series)] Future Scheduled 2022-01-13 COVID-19 VACCINE (#1) [facility] Test 01:43:47 [code = COVID-19 VACCINE (#1)] Future Scheduled 2022-01-13 Pneumococcal Vaccine: [facility] Test 01:43:47 Pediatrics (0 to 5 Years) and At-Risk Patients (6 to 64 Years) (1 - PCV) [code = Pneumococcal Vaccine: Pediatrics (0 to 5 Years) and At-Risk Patients (6 to 64 Years) (1 - PCV)] Future Scheduled 2022-01-13 Hepatitis C screening [facility] Test 01:43:47 (procedure) [code = [id number]] Future Scheduled 2022-01-13 [facility]ZA [facility]ACCINE [facility] Test 01:43:47 [code = INFLUENZA VACCINE] [...] Department ID 2022-04-27 2022-04-27 Emergency Karl, 1.2.840.1 [id number] Methodi 16:41:00 19:24:[address] [facility] 3.430.2.7 Hospit a .3.031587 l .8 2022-04-27 2022-04-27 Emergency Karl, 1.2.840.1 [id number] 2099 [id number] Methodi 16:41:00 19:24:[address] [facility] 3.430.2.7 Hospit a .3.750420 l .8 2022-03-30 2022-03-30 Outpatient YANG, [facility] [id number] [place] 00:00:00 00:00:00 [facility] 2022-03-10 2022-03-[address] [id number] [place] 22:17:00 15:10:00 Encounter Wilber Scales 2022-03-10 2022-03-10 Emergency 1 Emre Acuna [facility] [id number] Muir 06:16:00 22:11:00 [facility] 2022-03-09 2022-03-09 Emergency Yang, 1.2.840.1 [id number] 2099 [id number] Methodi 16:47:00 20:21:[address] [facility] 3.430.2.7 Ho spita .3.515394 l .8 2022-03-09 2022-03-09 Emergency Yang, 1.2.840.1 [id number] 2099 [id number] Methodi 16:47:00 20:21:[address] [facility] 3.430.2.7 Ho spita .3.715434 l .8 2022-02-24 2022-02-24 Outpatient [facility] [id number] [place] 00:00:00 00:00:00 [facility] 2022-02-04 2022-02-05 Emergency [facility] [id number] Muir 23:51:00 00:17:00 Thomas Kelly [facility] 2022-02-04 2022-02-04 Emergency [facility] [id number] Muir 10:18:51 10:59:41 [facility] 2022-01-12 2022-01-13 Emergency Rehrer, 1.2.840.1 [id number] 2099 [id number] Methodi 21:16:00 06:04:00 Dio Jack [address]19.1.[address] 3.430.2.7 Hospit a .3.164047 l .8 2022-01-12 2022-01-13 Emergency Rehrer, 1.2.840.1 [id number] 2099 [id number] Methodi 21:16:00 06:04:[address] Dio Jack [address]1.[address] 3.430.2.7 Hospit a .3.576329 l .8 2022-01-12 2022-01-12 [facility] [id number] [address] [place] [address] 20:08:00 22:12:00 Cely Geena Healt 2022-01-12 2022-01-12 Travel 1.2.840.1 1.2.058.036 [id number] Methodi 00:00:00 00:00:[address] 3.430.2.7 0.2.7.3.698 Ho spita .3.483499 084.8 l .8 2022-01-12 2022-01-12 Travel 1.2.840.1 1.2.630.060 2047 [id number] Methodi 00:00:00 00:00:[address] 3.430.2.7 0.2.7.3.698 Ho spita .3.506581 084.8 l .8 2021-12-30 2021-12-30 Emergency Emergency Afuwramo, [facility] [id number] [facility] 00:14:00 00:14:00 Lukkristian 92 2021-12-30 2021-12-30 Emergency [facility] [id number] [facility] 00:14:00 00:14:00 92 2021-12-29 2021-12-29 Emergency 1.2.840.1 [id number] 2099 [id number] Methodi 00:27:00 01:06:[address] 3.430.2.7 Hospit a .3.157130 l .8 2021-12-29 2021-12-29 Emergency 1.2.840.1 [id number] Methodi 00:27:00 01:06:[address] 3.430.2.7 Hospit a .3.099045 l .8 2021-12-29 2021-12-29 Travel 1.2.840.1 1.2.432.019 0890 [id number] Methodi 00:00:00 00:00:[address] 3.430.2.7 0.2.7.3.698 Ho spita .3.294524 084.8 l .8 2021-12-29 2021-12-29 Travel 1.2.840.1 1.2.683.124 1084 [id number] Methodi 00:00:00 00:00:[address] 3.430.2.7 0.2.7.3.698 Ho spita .3.936565 084.8 l .8 2021-05-30 2021-05-30 Emergency [facility] 1.2.568.229 [id number] [facility] 02:35:00 02:50:00 [place] CHANEY 350.1.13.10 ity [facility] 4.2.7.2.686 [facility] [id number] [place] [address] [address] 2021-05-30 2021-05-30 Emergency X [facility] [id number] Univers 02:35:00 02:50:00 [place] dailey [facility] 2021-05-30 2021-05-30 Orders Doctor MERINO 1.2.840.114 [id number] Univers 00:00:00 00:00:00 Only Unassigned, ARAM[place] 350.1.13.10 [place] [facility] 4.2.7.2.686 Ward as [id number] [facility] [address] 2021-05-30 2021-05-30 WILBER Zuñiga 1.2.673.787 [id number] Univers 00:00:00 00:00:00 (Out) Roshan GIRARDY 350.1.13.10 it y of [facility] 4.2.7.2.686 Ward as [id number] [facility] 019 [address] 2019-12-15 2019-12-15 [facility] [id number] Memoria 04:20:04 08:22:00 geena Serena [address] [place] [address] 2019-12-15 2019-12-15 [facility] [id number] Memoria 04:20:04 08:22:00 geena Massey [address] [place] [address] 2019-12-14 2019-12-15 Outpatient Carmen [facility] [id number] 23:20:04 03:22:00 Elio Sweeney [facility] 2019-12-14 2019-12-15 [facility] [id number] Memoria 23:20:00 03:22:00 ELIO Schneider [facility] 2018-04-18 2018-04-18 [facility] [id number] Memoria 11:54:00 16:31:00 geena Massey [address] [place] [address] 2018-04-18 2018-04-18 [facility] [id number] Memoria 11:54:00 16:31:00 geena Massey [address] [place] [address] 2018-04-18 2018-04-18 Outpatient Shawna [facility] [id number] 05:54:00 10:31:00 Sb Yostrey 2018-04-12 2018-04-14 [facility] [id number] Memoria 21:46:00 21:30:00 geena Massey [address] [place] [address] 2018-04-12 2018-04-14 In[facility] [id number] Memoria 21:46:00 21:30:00 geena Massey [address] [place] [address] 2018-04-12 2018-04-14 Outpatient Mena, [facility] [id number] 15:46:00 15:30:00 Eddie Rodriguez 2016-05-01 2016-05-01 [facility] [id number] Memoria 01:27:00 07:00:00 geena Massey 05 [facility] 2016-05-01 2016-05-01 [facility] [id number] Memoria 01:27:00 07:00:00 geena Massey 05 [facility] 2016-04-30 2016-05-01 Outpatient SUMMER Lepe 9 [id number] 19:27:00 01:00:00 Hiram Anamaria 2016-04-30 2016-04-30 [facility] [id number] Memoria 10:30:00 13:04:00 geena Gale [facility] 2016-04-30 2016-04-30 [facility] [id number] Memoria 10:30:00 13:04:00 geena Gale [facility] 2016-04-30 2016-04-30 Outpatient He[place] [id number] 04:30:00 07:04:00 Santana 2016-04-07 2016-04-07 [facility] [id number] Memoria 01:26:00 16:46:00 geena peace [facility] 2016-04-07 2016-04-07 [facility] [id number] Memoria 01:26:00 16:46:00 geena peace [facility] 2016-04-06 2016-04-07 Outpatient Constantino [facility] [id number] 19:26:00 10:46:00 Mirta andre 2016-01-14 2016-01-14 [facility] [id number] Memoria 02:11:00 08:00:00 geena peace [facility] 2016-01-14 2016-01-14 Emergency [facility] [id number] Memoria 02:11:00 08:00:00 geena peace [facility] 2016-01-13 2016-01-14 Outpatient Jacob [facility] [id number] 21:11:00 03:00:00 Noemi Shi 2012-12-29 2012-12-30 Inpatient nullFlavo [facility] [id number] Memoria 04:32:00 21:30:00 r Medical 00 l Hominy Serena 2012-12-29 2012-12-30 Inpatient nullFlavo [facility] [id number] Memoria 04:32:00 21:30:00 r Medical 00 l [facility] Results Test Description Test Time Test Comments Results Result Comments Source Strep screen culture 2022-04-30 07:18:00 Test Item Value Reference Range Interpretation Comme nts Strep screen culture No beta hemolytic Sp ecimen InformationSpecimen isolate (test code = Streptococci isolated Source: ThroatSpecimen Site: Not 547-0) otherwise [facility] [id number] 07:18:00 Test Item Value Reference Range Interpretation Comments Strep screen No beta hemolytic Specimen culture Streptococci InformationSpec imen isolate (test isolated Source: Throat Specimen code = 547-0) Site: Not othe rwise specified [facility] [id number] 07:18:00 Test Item Value Reference Range Interpretation Comments Strep screen No beta hemolytic Specimen culture Streptococci InformationSpec imen isolate (test isolated Source: Throat Specimen code = 547-0) Site: Not othe rwise specified [facility] [id number] 07:18:00 Test Item Value Reference Range Interpretation Comments Strep screen No beta hemolytic Specimen culture Streptococci InformationSpec imen isolate (test isolated Source: Throat Specimen code = 547-0) Site: Not othe rwise specified [facility] [id number] 09:23:21 Test Item Value Reference Range Interpretation Comments RPR Ser Ql (test code = 03769-8) NON-REACTIVE Non-reactive HHSHIV 1+2 Ab+HIV1 p24 Ag SerPl Ql [id number] 08:57:46 Test Item Value Reference Range Interpretation Comments HIV 1+2 Ab+HIV1 p24 Ag SerPl Ql IA NEGATIVE Negative (test code = 16502-9) HHSCoronavirus, CoVID-19, [id number] 13:03:17 Test Item Value Reference Interpretation Comments Range COVID-19 Not Detected Not Detected INTERPRETATION: (SARS-COV-2) (test No detect able code = 12745-3) levels of SARS-CoV-2 Coronavirus (COVID-19) were present [...] its performance characteristics were verified by the [facility] molecular diagnostics laboratory and is authorized for clinical diagnostic use. This laboratory is certified under the Clinical Laboratory Improvement Amendments (CLIA) as qualified to perform high complexity clinical laboratory testing. Lab Interpretation Normal (test code = 92999-0) Muir LanaCoronavirus, CoVID-19, [id number] 13:03:17 Test Item Value Reference Interpretation Comments Range COVID-19 Not Detected Not Detected INTERPRETATION: (SARS-COV-2) (test No detect able code = 38683-9) levels of SARS-CoV-2 Coronavirus (COVID-19) were present [...] its performance characteristics were verified by the [facility] molecular diagnostics laboratory and is authorized for clinical diagnostic use. This laboratory is certified under the Clinical Laboratory Improvement Amendments (CLIA) as qualified to perform high complexity clinical laboratory testing. Lab Interpretation Normal (test code = 61895-1) Muir LanaCoronavirus, CoVID-19, [id number] 13:03:17 Test Item Value Reference Interpretation Comments Range COVID-19 Not Detected Not Detected INTERPRETATION: (SARS-COV-2) (test No detect able code = 19776-8) levels of SARS-CoV-2 Coronavirus (COVID-19) were present [...] its performance characteristics were verified by the [facility] molecular diagnostics laboratory and is authorized for clinical diagnostic use. This laboratory is certified under the Clinical Laboratory Improvement Amendments (CLIA) as qualified to perform high complexity clinical laboratory testing. Lab Interpretation Normal (test code = 66356-6) [facility], [id number] 13:03:17 Test Item Value Reference Interpretation Comments Range COVID-19 Not Detected Not Detected INTERPRETATION: (SARS-COV-2) (test No detect able code = 11948-0) levels of SARS-CoV-2 Coronavirus (COVID-19) were present [...] its performance characteristics were verified by the [facility] molecular diagnostics laboratory and is authorized for clinical diagnostic use. This laboratory is certified under the Clinical Laboratory Improvement Amendments (CLIA) as qualified to perform high complexity clinical laboratory testing. Lab Interpretation Normal (test code = 49577-5) [facility]-CoV-2 RNA Resp Ql [id number]+[id number] 13:03:17 Test Item Value Reference Range Interpretation Comments Hospitalized? (test No code = 85148-3) ICU? (test code = No 33212-1) Symptomatic as defined No by CDC? (test code = 32330-6) Employed in No Healthcare? (test code = 62600-7) Resident in a Yes congregate care setting (including nursing homes, residential care for people with intellectual and developmental disabilities, psychiatric treatment facilities, group homes, board and care homes, homeless skilled nursing, foster care or other): (test code = 91741-1) SARS-CoV-2 RNA Resp Ql NOT DETECTED Not Detected INTER PRETATION: No PORTIA+probe (test code = detec table levels 34181-3) of SARS-CoV-2 Coronavirus (COVID-19) were present in [...] its performance characteristics were verified by the [facility] molecular diagnostics laboratory and is authorized for clinical diagnostic use. This laboratory is certified under the Clinical Laboratory Improvement Amendments (CLIA) as qualified to perform high complexity clinical laboratory testing.[facility] BMP POC docked [id number] 11:49:51 Test Item Value Reference Range Interpretation Comments Sodium POC (test code = 140 mmol/L 136-145 08157517) Potassium POC (test code 4.0 mmol/L 3.5-5.1 = 96864040) Chloride POC (test code 104 mmol/L 98-107 = 88980414) TCO2 POC (test code = 28 mmol/L 21-32 Physic shea Notified 81939432) Urea Nitrogen POC (test 19 mg/dL 7-18 H code = 40294590) Glucose POC (test code = 79 mg/dL 74-106 76378476) Hemoglobin POC (test 13.9 g/dL 12-16 code = 59392424) Hematocrit POC (test 41.0 % 37.0-47.0 code = 60272801) Lab Interpretation (test Abnormal code = 52048-1) [facility] CREATININE POC docked [id number] 11:49:51 Test Item Value Reference Range Interpretation Comments Creatinine POC (test 1.0 mg/dL 0.6-1.3 Physici an Notified code = 34705357) eGFR If non- Am 98 See_Comment [Aut omated message] (test code = 26724029) The s ystem which generated this result transmit abdelrahman reference range : >=90 mL/min/1.7 3 m2. The reference r annemarie was not used to interpret this result as normal/abnormal . eGFR If Am (test 114 See_Comment [A utomated message] code = 25146007) The system which generated this result transmit abdelrahman reference range : >=90 mL/min/1.7 3 m2. The reference r annemarie was not used to interpret this result as normal/abnormal . Lab Interpretation (test Normal code = 93205-6) [facility] BMP POC docked [id number] 11:49:51 Test Item Value Reference Range Interpretation Comments Sodium POC (test code = 140 mmol/L 136-145 75838951) Potassium POC (test code 4.0 mmol/L 3.5-5.1 = 40459936) Chloride POC (test code 104 mmol/L 98-107 = 81228547) TCO2 POC (test code = 28 mmol/L 21-32 Physic shea Notified 68602897) Urea Nitrogen POC (test 19 mg/dL 7-18 H code = 20305948) Glucose POC (test code = 79 mg/dL 74-106 39745575) Hemoglobin POC (test 13.9 g/dL 12-16 code = 02063002) Hematocrit POC (test 41.0 % 37.0-47.0 code = 78750871) Lab Interpretation (test Abnormal code = 87434-4) [facility] CREATININE POC docked [id number] 11:49:51 Test Item Value Reference Range Interpretation Comments Creatinine POC (test 1.0 mg/dL 0.6-1.3 Physici an Notified code = 77912203) eGFR If non- Am 98 See_Comment [Aut omated message] (test code = 02697871) The s ystem which generated this result transmit abdelrahman reference range : >=90 mL/min/1.7 3 m2. The reference r annemarie was not used to interpret this result as normal/abnormal . eGFR If Am (test 114 See_Comment [A utomated message] code = 57297850) The system which generated this result transmit abdelrahman reference range : >=90 mL/min/1.7 3 m2. The reference r annemarie was not used to interpret this result as normal/abnormal . Lab Interpretation (test Normal code = 19466-4) [facility] BMP POC docked [id number] 11:49:51 Test Item Value Reference Range Interpretation Comments Sodium POC (test code = 140 mmol/L 136-145 72224886) Potassium POC (test code 4.0 mmol/L 3.5-5.1 = 45579371) Chloride POC (test code 104 mmol/L 98-107 = 90863790) TCO2 POC (test code = 28 mmol/L 21-32 Physic shea Notified 09249677) Urea Nitrogen POC (test 19 mg/dL 7-18 H code = 22231835) Glucose POC (test code = 79 mg/dL 74-106 11587839) Hemoglobin POC (test 13.9 g/dL 12-16 code = 70938154) Hematocrit POC (test 41.0 % 37.0-47.0 code = 60871980) Lab Interpretation (test Abnormal code = 33515-1) [facility] CREATININE POC docked [id number] 11:49:51 Test Item Value Reference Range Interpretation Comments Creatinine POC (test 1.0 mg/dL 0.6-1.3 Physici an Notified code = 57186644) eGFR (test code = 98 See_Comment [Automate d message] 20461862) The system [employer] h generated this result transmit abdelrahman reference range : >=90 mL/min/1.7 3 m2. The reference r annemarie was not used to interpret this result as normal/abnormal . eGFR If Am (test 114 See_Comment [A utomated message] code = 28903637) The system which generated this result transmit abdelrahman reference range : >=90 mL/min/1.7 3 m2. The reference r annemarie was not used to interpret this result as normal/abnormal . Lab Interpretation (test Normal code = 44475-5) [facility] BMP POC docked [id number] 11:49:51 Test Item Value Reference Range Interpretation Comments Sodium POC (test code = 140 mmol/L 136-145 05845871) Potassium POC (test code 4.0 mmol/L 3.5-5.1 = 88781256) Chloride POC (test code 104 mmol/L 98-107 = 34744103) TCO2 POC (test code = 28 mmol/L 21-32 Physic shea Notified 33827306) Urea Nitrogen POC (test 19 mg/dL 7-18 H code = 52554476) Glucose POC (test code = 79 mg/dL 74-106 00730164) Hemoglobin POC (test 13.9 g/dL 12-16 code = 80329087) Hematocrit POC (test 41.0 % 37.0-47.0 code = 63344967) Lab Interpretation (test Abnormal code = 44968-5) [facility] CREATININE POC docked [id number] 11:49:51 Test Item Value Reference Range Interpretation Comments Creatinine POC (test 1.0 mg/dL 0.6-1.3 Physici an Notified code = 91337163) eGFR (test code = 98 See_Comment [Automate d message] 72778593) The system [employer] generated this result transmit abdelrahman reference range : >=90 mL/min/1.7 3 m2. The reference r annemarie was not used to interpret this result as normal/abnormal . eGFR If Am (test 114 See_Comment [A utomated message] code = 43440551) The system which generated this result transmit abdelrahman reference range : >=90 mL/min/1.7 3 m2. The reference r annemarie was not used to interpret this result as normal/abnormal . Lab Interpretation (test Normal code = 33798-6) [facility] [id number] 06:41:00 Test Item Value Reference Range Interpretation Comments Urine culture (test SEE COMMENT Bacteriu pilo screen code = 3168322) negative. [facility]2022-09-15 06:41:00 Test Item Value Reference Range Interpretation Comments Urine culture (test SEE COMMENT Bacteriu pilo screen code = 4404939) negative. [facility]2022-09-15 06:41:00 Test Item Value Reference Range Interpretation Comments Urine culture (test SEE COMMENT Bacteriu pilo screen code = 8517289) negative. [facility]2022-09-15 06:41:00 Test Item Value Reference Range Interpretation Comments Urine culture (test SEE COMMENT Bacteriu pilo screen code = 4958472) negative. [facility]2022-09-15 06:41:00 Test Item Value Reference Range Interpretation Comments Urine culture (test SEE COMMENT Bacteriu pilo screen code = 2444006) negative. [facility]2022-09-15 06:41:00 Test Item Value Reference Range Interpretation Comments Urine culture (test SEE COMMENT Bacteriu pilo screen code = 7781021) negative. [facility]2022-09-15 06:41:00 Test Item Value Reference Range Interpretation Comments Urine culture (test SEE COMMENT Bacteriu pilo screen code = 2400609) negative. [facility]2022-09-15 06:41:00 Test Item Value Reference Range Interpretation Comments Urine culture (test SEE COMMENT Bacteriu pilo screen code = 4846448) negative. [facility] ED Preliminary Interpretation - Not an [id number] 02:35:02 Test Item Value Reference Range Interpretation Comments LISA (test code = LISA) Dio Boswell DO 01/16/2022 11:06 [facility] ED Preliminary Interpretation - Not an OrderPerformed by: Dio Boswell DOAuthorized by: Dio Boswell DO ECG reviewed by ED Physician in the absence of a gambreler helper: yes Previous ECG: Previous ECG: UnavailableInterpretat ion: Interpretation: abnormal Rate: ECG rate: 60 ECG rate assessment: normal Rhythm: Rhythm: sinus rhythm Ectopy: Ectopy: none QRS: QRS axis: Normal QRS intervals: NormalConduction: Conduction: abnormal Abnormal conduction: incomplete RBBB ST segments: ST segments: NormalT waves: T waves: normal Lab Interpretation Abnormal (test code = 99378-4) [facility] ED Preliminary Interpretation - Not an [id number] 02:35:02 Test Item Value Reference Range Interpretation Comments LISA (test code = LISA) Dio Boswell DO 01/16/2022 11:06 [facility] ED Preliminary Interpretation - Not an OrderPerformed by: Dio Boswell DOAuthorized by: Dio Boswell DO ECG reviewed by ED Physician in the absence of a gambreler helper: yes Previous ECG: Previous ECG: UnavailableInterpretat ion: Interpretation: abnormal Rate: ECG rate: 60 ECG rate assessment: normal Rhythm: Rhythm: sinus rhythm Ectopy: Ectopy: none QRS: QRS axis: Normal QRS intervals: NormalConduction: Conduction: abnormal Abnormal conduction: incomplete RBBB ST segments: ST segments: NormalT waves: T waves: normal Lab Interpretation Abnormal (test code = 16589-8) [facility] ED Preliminary Interpretation - Not an [id number] 02:35:02 Test Item Value Reference Range Interpretation Comments LISA (test code = ILSA) Dio Boswell DO 01/16/2022 11:06 [facility] ED Preliminary Interpretation - Not an OrderPerformed by: Dio Boswell, Authorized by: Dio Boswell DO ECG reviewed by ED Physician in the absence of a gambreler helper: yes Previous ECG: Previous ECG: UnavailableInterpretat ion: Interpretation: abnormal Rate: ECG rate: 60 ECG rate assessment: normal Rhythm: Rhythm: sinus rhythm Ectopy: Ectopy: none QRS: QRS axis: Normal QRS intervals: NormalConduction: Conduction: abnormal Abnormal conduction: incomplete RBBB ST segments: ST segments: NormalT waves: T waves: normal Lab Interpretation Abnormal (test code = 45564-2) [facility] ED Preliminary Interpretation - Not an [id number] 02:35:02 Test Item Value Reference Range Interpretation Comments LISA (test code = LISA) Dio Boswell DO 01/16/2022 11:06 [facility] ED Preliminary Interpretation - Not an OrderPerformed by: Dio Boswell DOAuthorized by: Dio Boswell DO ECG reviewed by ED Physician in the absence of a gambreler helper: yes Previous ECG: Previous ECG: UnavailableInterpretat ion: Interpretation: abnormal Rate: ECG rate: 60 ECG rate assessment: normal Rhythm: Rhythm: sinus rhythm Ectopy: Ectopy: none QRS: QRS axis: Normal QRS intervals: NormalConduction: Conduction: abnormal Abnormal conduction: incomplete RBBB ST segments: ST segments: NormalT waves: T waves: normal Lab Interpretation Abnormal (test code = 22142-8) [facility] ED Preliminary Interpretation - Not an [id number] 02:35:02 Test Item Value Reference Range Interpretation Comments LISA (test code = LISA) Dio Boswell DO 01/16/2022 11:06 [facility] ED Preliminary Interpretation - Not an OrderPerformed by: Dio Boswell DOAuthorized by: Dio Boswell DO ECG reviewed by ED Physician in the absence of a gambreler helper: yes Previous ECG: Previous ECG: UnavailableInterpretat ion: Interpretation: abnormal Rate: ECG rate: 60 ECG rate assessment: normal Rhythm: Rhythm: sinus rhythm Ectopy: Ectopy: none QRS: QRS axis: Normal QRS intervals: NormalConduction: Conduction: abnormal Abnormal conduction: incomplete RBBB ST segments: ST segments: NormalT waves: T waves: normal Lab Interpretation Abnormal (test code = 36722-5) [facility] ED Preliminary Interpretation - Not an [id number] 02:35:02 Test Item Value Reference Range Interpretation Comments LISA (test code = LISA) Dio Boswell DO 01/16/2022 11:06 [facility] ED Preliminary Interpretation - Not an OrderPerformed by: Dio Boswell DOAuthorized by: Dio Boswell DO ECG reviewed by ED Physician in the absence of a gambreler helper: yes Previous ECG: Previous ECG: UnavailableInterpretat ion: Interpretation: abnormal Rate: ECG rate: 60 ECG rate assessment: normal Rhythm: Rhythm: sinus rhythm Ectopy: Ectopy: none QRS: QRS axis: Normal QRS intervals: NormalConduction: Conduction: abnormal Abnormal conduction: incomplete RBBB ST segments: ST segments: NormalT waves: T waves: normal Lab Interpretation Abnormal (test code = 06172-6) [facility] ED Preliminary Interpretation - Not an [id number] 02:35:02 Test Item Value Reference Range Interpretation Comments LISA (test code = LISA) Dio Boswell DO 01/16/2022 11:06 [facility] ED Preliminary Interpretation - Not an OrderPerformed by: Dio Boswell DOAuthorized by: Dio Boswell DO ECG reviewed by ED Physician in the absence of a gambreler helper: yes Previous ECG: Previous ECG: UnavailableInterpretat ion: Interpretation: abnormal Rate: ECG rate: 60 ECG rate assessment: normal Rhythm: Rhythm: sinus rhythm Ectopy: Ectopy: none QRS: QRS axis: Normal QRS intervals: NormalConduction: Conduction: abnormal Abnormal conduction: incomplete RBBB ST segments: ST segments: NormalT waves: T waves: normal Lab Interpretation Abnormal (test code = 25415-9) [facility] ED Preliminary Interpretation - Not an [id number] 02:35:02 Test Item Value Reference Range Interpretation Comments LISA (test code = LISA) Dio Boswell DO 01/16/2022 11:06 [facility] ED Preliminary Interpretation - Not an OrderPerformed by: Dio Boswell DOAuthorized by: Dio Boswell DO ECG reviewed by ED Physician in the absence of a gambreler helper: yes Previous ECG: Previous ECG: UnavailableInterpretat ion: Interpretation: abnormal Rate: ECG rate: 60 ECG rate assessment: normal Rhythm: Rhythm: sinus rhythm Ectopy: Ectopy: none QRS: QRS axis: Normal QRS intervals: NormalConduction: Conduction: abnormal Abnormal conduction: incomplete RBBB ST segments: ST segments: NormalT waves: T waves: normal Lab Interpretation Abnormal (test code = 51231-0) [facility] DcobekkqKKDU-TmB-3 (COVID-19) RNA [Presence] in Respiratory specimen by PORTIA with probe iliyyfdvd4054-47-35 00:36:01 Test Item Value Reference Range Interpretation Comments SARS-CoV-2 (COVID-19) RNA [Presence] Detected in Respiratory specimen by PORTIA with probe detection (test code = 88445-2) Whether patient is employed in a Unknown healthcare setting (test code = 08896-1) Whether the patient has symptoms Unknown related to condition of interest (test code = 90129-0) Whether the patient was hospitalized Unknown for condition of interest (test code = 06368-2) Whether the patient was admitted to Unknown intensive care unit (ICU) for condition of interest (test code = 90156-5) Whether patient resides in a Unknown congregate care setting (test code = 93621-4) status (test code = Unknown 84659-2) Date and time of symptom onset (test Unknown code = 51411-0) [facility] Lead [id number] 11:30:2212 LEAD EKG FOR [facility] Test Date: 4558-01-40Dce Name: [facility] Department: 5520Patient ID: [id number] Room: Gender: M Miner: [id number]: 1990 Requested By: INOCENCIA LOZANO Order Number: [id number] Reading MD: Ayush Saunders MeasurementsIntervals Ripton Rate: 72 P: 67PR: 141 QRS: 70QRSD: 110 T: 29QT: 397 QTc: 422 Interpretive StatementsSINUS RHYTHMINCOMPLETE RIGHT BUNDLE BRANCH BLOCK [90+ ms QRS DURATION, TERMINAL R INV1/V2,40+ ms S IN I/aVL/V4/V5/V6]POSSIBLE LATERAL MYOCARDIAL INFARCTION , PROBABLY OLD [30 ms Q WAVE INI/aVL/V5/V6]Electronically Signed On 01-14-2022 12:12:05 CDT by Ayush RondonSteve [place] [address] Lead [id number] 11:30:2212 LEAD EKG FOR [facility] Test Date: 1125-32-95Pfk Name: [facility] Department: 5520Patient ID: [id number] Room: Gender: M Miner: [id number]: 1990 Requested By: INOCENCIA LOZANO Order Number: [id number] Joyce MD: Ayush Saunders MeasurementsIntervals Ripton Rate: 72 P: 67PR: 141 QRS: 70QRSD: 110 T: 29QT: 397 QTc: 422 Interpretive StatementsSINUS RHYTHMINCOMPLETE RIGHT BUNDLE BRANCH BLOCK [90+ ms QRS DURATION, TERMINAL R INV1/V2,40+ ms S IN I/aVL/V4/V5/V6]POSSIBLE LATERAL MYOCARDIAL INFARCTION , PROBABLY OLD [30 ms Q WAVE INI/aVL/V5/V6]Electronically SignedOn 01-14-2022 12:12:05 CDT by Ayush HaydenAlta Bates Summit Medical CenterHoseanna Gfpunj52 Lead [id number] 11:30:2212 LEAD EKG FOR [facility] Test Date: 5518-16-24Mbo Name: [facility] Department: 5520Patient ID: [id number] Room: Gender: M Miner: [id number]: 1990 Requested By: INOCENCIA LOZANO Order Number: [id number] Reading MD: Ayush Saunders MeasurementsIntervals Ripton Rate: 72 P: 67PR: 141 QRS: 70QRSD: 110 T: 29QT: 397 QTc: 422 Interpretive StatementsSINUS RHYTHMINCOMPLETE RIGHT BUNDLE BRANCH BLOCK [90+ ms QRS DURATION, TERMINAL R INV1/V2,40+ ms S IN I/aVL/V4/V5/V6]POSSIBLE LATERAL MYOCARDIAL INFARCTION , PROBABLY OLD [30 ms Q WAVE INI/aVL/V5/V6]Electronically Signed On 01-14-2022 12:12:05 CDT by [place]ush AguilarSally [place] [address] Lead [id number] 11:30:2212 LEAD EKG FOR [facility] Test Date: 1995-06-08Bxv Name: [facility] Department: 5520Patient ID: [id number] Room: Gender: M Miner: [id number]: 1990 Requested By: INOCENCIA LOZANO Order Number: [id number] Reading MD: Ayush Saunders MeasurementsIntervals Ripton Rate: 72 P: 67PR: 141 QRS: 70QRSD: 110 T: 29QT: 397 QTc: 422 Interpretive StatementsSINUS RHYTHMINCOMPLETE RIGHT BUNDLE BRANCH BLOCK [90+ ms QRS DURATION, TERMINAL R INV1/V2,40+ ms S IN I/aVL/V4/V5/V6]POSSIBLE LATERAL MYOCARDIAL INFARCTION , PROBABLY OLD [30 ms Q WAVE INI/aVL/V5/V6]Electronically Signed On 01-14-2022 12:12:05 CDT [place]ush SaundersNorma [place] [address] Lead [id number] 11:30:2212 LEAD EKG FOR [facility] Test Date: 9970-14-20Mxa Name: [facility] Department: 5520Patient ID: [id number] Room: Gender: M Miner: [id number]: 1990 Requested By: INOCENCIA LOZANO Order Number: [id number] Reading MD: Ayush Saunders MeasurementsIntervals Ripton Rate: 72 P: 67PR: 141 QRS: 70QRSD: 110 T: 29QT: 397 QTc: 422 Interpretive StatementsSINUS RHYTHMINCOMPLETE RIGHT BUNDLE BRANCH BLOCK [90+ ms QRS DURATION, TERMINAL R INV1/V2,40+ ms S IN I/aVL/V4/V5/V6]POSSIBLE LATERAL MYOCARDIAL INFARCTION , PROBABLY OLD [30 ms Q WAVE INI/aVL/V5/V6]Electronically Signed On 01-14-2022 12:12:05 CD[facility] Lead [id number] 11:30:2212 LEAD EKG FOR [facility] Test Date: 7016-12-98Bcs Name: SABAS Renae ent: 5520Patient ID: [id number] Room: Gender: Miner: [id number]: 1990 Requested By: INOCENCIA LOZANO Order Number: [id number] Reading MD: Ayush Saunders MeasurementsIntervals Ripton Rate: 72 P: 67PR: 141 QRS: 70QRSD: 110 T: 29QT: 397 QTc: 422 Interpretive StatementsSINUS RHYTHMINCOMPLETE RIGHT BUNDLE BRANCH BLOCK [90+ ms QRS DURATION, TERMINAL R INV1/V2,40+ ms S IN I/aVL/V4/V5/V6]POSSIBLE LATERAL MYOCARDIAL INFARCTION , PROBABLY OLD [30 ms Q WAVE INI/aVL/V5/V6]Electronically Signed On 01-14-2022 12:12:05 CDT by [facility], COVID19 [id number] 00:45:00 Test Item Value Reference Range Interpretation Comments Coronavirus PCR, For use under Emergency COVID19 Rapid (test Use Authorization (EUA) code = SARSCOV2) only. Coronavirus PCR, Reference Range: COVID19 Rapid (test Negative code = NGMCXPF48.1) SARS-CoV-2 PCR Result: Positive by RT-PCR A [...] = NRBCP) 0 % UA, Urinalysis Rflx Cult/Dqrqp5119-33-31 00:45:00 Test Item Value Reference Range Interpretation Comments Color,Urine (test code = UCOL) Dark Yellow Yellow A Clarity,Urine (test code = Clear Clear UCLAR) Ph, Urine (test code = UPH) 5.0 5.0-9.0 N Specific [place],Urine (test >= 1.030 1.005-1.030 N code = [...] Negative mg/dL Negative code = ULEU) Urine Zwkanzngkln6583-20-58 00:45:00 Test Item Value Reference Range Interpretation Comments RBC,Urine (test code = URBCUF) None Seen /HPF 0-2 WBC,Urine (test code = UWBCUF) 0-5 /HPF 0-5 Epithelial Cell,Urine (test None Seen /HPF 0-5 code = UECUF) Casts,Urine (test code = 0-5 /LPF None Seen UCASTUF) Bacteria,Urine (test code = None Seen /hpf None Seen UBACTUF) Manual Differential, [id number] 00:45:00 Test Item Value Reference Range Interpretation [...] code = Normal Morphology Normal RM) Drug Screen,[id number] 00:45:00 Test Item Value Reference Range Interpretation [...] Urine (test code = UPROP) Comprehensive Metabolic Hcudn5816-59-86 00:45:00 Test Item Value Reference Range Interpretation [...] 44 U/L 46-116 L = ALP) Ethanol [id number] 00:45:00 Test Item Value Reference Range Interpretation Comments Ethanol (test code < 3 mg/dL The pharm acological = ETOH) response to blo od alcohol levels mayvary from individual to i ndividual. The fatal xiomara ntrationhas been reported t o be >400mg/dL. CHEM [id number] 04:57:00 Test Item Value Reference Range Interpretation Comments Glucose Lvl (test code = Glucose Lvl) 141 70-99 [facility]Spend[facility] Payments CompanyCRAW[facility] MEMORIAL HOSPITALYAZCU6570-43-34 04:57:00 Test Item Value Reference Range Interpretation Comments BUN (test code = BUN) 7 7-22 [place] 926720-08-16 04:57:00 Test Item Value Reference Range Interpretation Comments Creatinine Lvl (test code = Creatinine 1.10 0.50-1.40 Lvl) [facility]2020-08-16 04:57:00 Test Item Value Reference Range Interpretation Comments Sodium Lvl (test code = Sodium Lvl) 138 135-145 [facility]Spend[facility] Payments CompanyKIMBERLY [place] [address]OJSHC3000-57-77 04:57:00 Test Item Value Reference Range Interpretation Comments Potassium Lvl (test code = Potassium 3.1 3.5-5.1 Lvl) [facility]Spend[facility] Payments CompanyCRAWLEY MEMORIAL HOSPITALDXFIY9313-05-73 04:57:00 Test Item Value Reference Range Interpretation Comments Chloride Lvl (test code = Chloride Lvl) 106 95-109 [facility]Sp[facility] Payments CompanyKIMBERLY [place] [address]SMYUL0205-43-77 04:57:00 Test Item Value Reference Range Interpretation Comments CO2 (test code = CO2) 27 24-32 [facility]Sp[facility] Payments CompanyKIMBER[place] [address]GIJUP0252-82-95 04:57:00 Test Item Value Reference Range Interpretation Comments Calcium Lvl (test code = Calcium Lvl) 8.9 8.5-10.5 [facility]Sp[facility] Payments CompanyKIMBER[place] [address]KOBZS7820-37-24 04:57:00 Test Item Value Reference Range Interpretation Comments Albumin Lvl (test code = Albumin Lvl) 4.2 3.5-5.0 [facility]2020-08-16 04:57:00 Test Item Value Reference Range Interpretation Comments AGAP (test code = AGAP) 8.1 10.0-20.0 [facility]Sp[facility] Payments CompanyKIMBER[place] [address]KDLRJ8666-98-32 04:57:00 Test Item Value Reference Range Interpretation Comments B/C Ratio (test code = B/C Ratio) 6 1 6-25 [facility]Sp[facility] Payments CompanyKIMBER[place] [address]MXFLI6971-07-66 04:57:00 Test Item Value Reference Range Interpretation Comments eGFR (test code = eGFR) 89 [place] 926720-08-16 04:57:00 Test Item Value Reference Range Interpretation Comments Total Protein (test code = Total 7.6 6.4-8.4 Protein) [place] 926720-08-16 04:57:00 Test Item Value Reference Range Interpretation Comments ALT (test code = ALT) 23 See_Comment [Auto mated message] The system which ge nerated this result transmit abdelrahman reference range : <=65. The reference range was not used to interpr et this result as gurpreet l/abnormal. [facility] Dache [id number] 04:57:00 Test Item Value Reference Range Interpretation Comments AST (test code = AST) 16 See_Comment [Auto mated message] The system which ge nerated this result transmit abdelrahman reference range : <=37. The reference range was not used to interpr et this result as gurpreet l/abnormal. [facility] [employer] [id number] 04:57:00 Test Item Value Reference Range Interpretation Comments Alk Phos (test code = Alk Phos) 38 39-136 [facility] [employer] [id number] 04:57:00 Test Item Value Reference Range Interpretation Comments Bili Total (test code = Bili Total) 0.3 0.2-1.3 [facility] [employer] [id number] 04:57:00 Test Item Value Reference Range Interpretation Comments Globulin (test code = Globulin) 3.4 2.7-4.2 [facility] [employer] [id number] 04:57:00 Test Item Value Reference Range Interpretation Comments A/G Ratio (test code = A/G Ratio) 1.2 1 0.7-1.6 [facility] HospitalQthmbkgEMFTNQDGJB9669-27-95 04:57:00 Test Item Value Reference Range Interpretation Comments WBC (test code = WBC) 9.2 3.7-10.4 [facility] KmwqmmjYOODGDDARK5697-67-69 04:57:00 Test Item Value Reference Range Interpretation Comments RBC (test code = RBC) 4.56 4.70-6.10 [facility] DqywoltUDQUSCENQJ0449-60-86 04:57:00 Test Item Value Reference Range Interpretation Comments Hgb (test code = Hgb) 13.3 14.0-18.0 [facility] LrmbjfyCONPXNHWRO7404-32-59 04:57:00 Test Item Value Reference Range Interpretation Comments Hct (test code = Hct) 39.7 42.0-54.0 [facility] SwcaxxcWOBELFHREU5898-34-29 04:57:00 Test Item Value Reference Range Interpretation Comments MCV (test code = MCV) 87.0 80.0-94.0 [facility] HospitalNtdlpgqCNFKIYRKSC4635-43-72 04:57:00 Test Item Value Reference Range Interpretation Comments MCH (test code = MCH) 29.2 pg 27.0-31.0 [facility] HospitalXsmomdoUDWJLDWUKN1234-92-57 04:57:00 Test Item Value Reference Range Interpretation Comments MCHC (test code = MCHC) 33.6 32.0-36.0 [facility] HospitalKrvcyliGVZFTJUFPT1850-75-78 04:57:00 Test Item Value Reference Range Interpretation Comments RDW (test code = RDW) 13.1 11.5-14.5 [facility] HospitalQngppcgPTLBXGUKOK2432-92-32 04:57:00 Test Item Value Reference Range Interpretation Comments Platelet (test code = Platelet) 162 133-450 [facility] HospitalJgmiewuYYYLHETKDP4500-71-86 04:57:00 Test Item Value Reference Range Interpretation Comments MPV (test code = MPV) 9.8 7.4-10.4 [facility] HospitalBmdyodvMJQKXYUGGR1140-87-09 04:57:00 Test Item Value Reference Range Interpretation Comments Segs (test code = Segs) 79.0 45.0-75.0 [facility] HospitalDyunhzeCWEEQHUNMK4954-10-09 04:57:00 Test Item Value Reference Range Interpretation Comments Lymphocytes (test code = Lymphocytes) 13.7 20.0-40.0 [facility] HospitalWaxddifTGSPMOTFDT9698-72-18 04:57:00 Test Item Value Reference Range Interpretation Comments Monocytes (test code = Monocytes) 6.5 2.0-12.0 [facility] HospitalXplcjvjNJRBMTZUMW8871-88-97 04:57:00 Test Item Value Reference Range Interpretation Comments Eosinophils (test code = 0.5 See_Comment [A utomated message] The Eosinophils) system which ge nerated this result tra nsmitted reference range : <=4.0. The reference r annemarie was not used to int erpret this result as normal/abnormal . [facility] HospitalRflvstrIIDKXGBLZX3125-64-02 04:57:00 Test Item Value Reference Range Interpretation Comments Basophils (test code = 0.3 See_Comment [Aut omated message] The Basophils) system which ge nerated this result tra nsmitted reference range : <=1.0. The reference r annemarie was not used to int erpret this result as normal/abnormal . [facility] HospitalVlgnyafFFMYNNTPYH5022-04-29 04:57:00 Test Item Value Reference Range Interpretation Comments Neutrophils # (test code = Neutrophils 7.3 1.5-8.1 #) [facility]OlwtjtjENHZLLBHLX2287-90-95 04:57:00 Test Item Value Reference Range Interpretation Comments Lymphocytes # (test code = Lymphocytes 1.3 1.0-5.5 #) [facility]QsecxyeLIACVXIYTB8693-78-45 04:57:00 Test Item Value Reference Range Interpretation Comments Monocytes # (test code 0.6 See_Comment [Aut omated message] The = Monocytes #) system which generated this result tra nsmitted reference range : <=0.8. The reference r annemarie was not used to int erpret this result as normal/abnormal . [facility] CenterNblfzsgBJIERMUSMY0992-83-77 04:57:00 Test Item Value Reference Range Interpretation Comments Ethanol Lvl (test code = Ethanol Lvl) no gt [facility] HospitalMtvglyvWSZMKRHOEH8230-50-19 04:57:00 Test Item Value Reference Range Interpretation Comments Etoh (%) (test code = Etoh (%)) no gt [facility] HospitalHnfbaiwUXSCZUQVMV2110-65-43 04:57:00 Test Item Value Reference Range Interpretation Comments Acetaminoph Lvl (test code (12/14/19 11:57 PM) 10-20 = Acetaminoph Lvl) [facility] CenterYpeqcogDWETLWHEZW9609-94-93 04:57:00 Test Item Value Reference Range Interpretation Comments Salicylate Lvl (test 3.4 See_Comment [Autom ated message] The code = Salicylate Lvl) syste m which generated this result tra nsmitted reference range : <=30.0. The reference r annemarie was not used to int erpret this result as normal/abnormal . [facility] [id number] 04:57:00 Test Item Value Reference Range Interpretation Comments Glucose Lvl (test code = Glucose Lvl) 141 70-99 [facility] [id number] 04:57:00 Test Item Value Reference Range Interpretation Comments BUN (test code = BUN) 7 7-22 [facility] HospitalY[facility] RBVBR4065-12-21 04:57:00 Test Item Value Reference Range Interpretation Comments Creatinine Lvl (test code = Creatinine 1.10 0.50-1.40 Lvl) [facility]Sp[facility] Payments CompanyKIM[place] [address]YHPMF0931-41-39 04:57:00 Test Item Value Reference Range Interpretation Comments Sodium Lvl (test code = Sodium Lvl) 138 135-145 [facility]Sp[facility] Payments CompanyKIM[place] [address]AQBQB9841-57-39 04:57:00 Test Item Value Reference Range Interpretation Comments Potassium Lvl (test code = Potassium 3.1 3.5-5.1 Lvl) [facility]Sp[facility] Payments CompanyCRAWLEY MEMORIAL HOSPITALJZLKV2511-88-23 04:57:00 Test Item Value Reference Range Interpretation Comments Chloride Lvl (test code = Chloride Lvl) 106 95-109 [facility]Sp[facility] Payments CompanyKIM[place] [address]OQNGS9879-25-22 04:57:00 Test Item Value Reference Range Interpretation Comments CO2 (test code = CO2) 27 24-32 [facility] [id number] 04:57:00 Test Item Value Reference Range Interpretation Comments Calcium Lvl (test code = Calcium Lvl) 8.9 8.5-10.5 [facility] RZJJF8489-99-47 04:57:00 Test Item Value Reference Range Interpretation Comments Albumin Lvl (test code = Albumin Lvl) 4.2 3.5-5.0 [facility] SDAFZ4481-74-52 04:57:00 Test Item Value Reference Range Interpretation Comments AGAP (test code = AGAP) 8.1 10.0-20.0 [facility] LIEIC9906-42-59 04:57:00 Test Item Value Reference Range Interpretation Comments B/C Ratio (test code = B/C Ratio) 6 1 6-25 [facility]Sp[facility] Payments CompanyKIM[place] [address]BIXWY2816-80-81 04:57:00 Test Item Value Reference Range Interpretation Comments eGFR (test code = eGFR) 89 [facility] VEABZ9239-66-45 04:57:00 Test Item Value Reference Range Interpretation Comments Total Protein (test code = Total 7.6 6.4-8.4 Protein) [facility] HospitalFUNGO STUDIOS VWLWN0910-37-87 04:57:00 Test Item Value Reference Range Interpretation Comments ALT (test code = ALT) 23 See_Comment [Auto mated message] The system which ge nerated this result transmit abdelrahman reference range : <=65. The reference range was not used to interpr et this result as gurpreet l/abnormal. [facility] [id number] 04:57:00 Test Item Value Reference Range Interpretation Comments AST (test code = AST) 16 See_Comment [Auto mated message] The system which ge nerated this result transmit abdelrahman reference range : <=37. The reference range was not used to interpr et this result as gurpreet l/abnormal. [facility] PeopleStringannFUNGO STUDIOS DEOPU8626-02-99 04:57:00 Test Item Value Reference Range Interpretation Comments Alk Phos (test code = Alk Phos) 38 39-136 [facility] PeopleStringannCHEM QAZRT2026-58-54 04:57:00 Test Item Value Reference Range Interpretation Comments Bili Total (test code = Bili Total) 0.3 0.2-1.3 [facility] PeopleStringannCHEM NEVSA4700-71-54 04:57:00 Test Item Value Reference Range Interpretation Comments Globulin (test code = Globulin) 3.4 2.7-4.2 [facility] PeopleStringannCHEM WFLYH1350-22-04 04:57:00 Test Item Value Reference Range Interpretation Comments A/G Ratio (test code = A/G Ratio) 1.2 1 0.7-1.6 [facility] HospitalZirovvkPNBMROIVWU0360-69-17 04:57:00 Test Item Value Reference Range Interpretation Comments WBC (test code = WBC) 9.2 3.7-10.4 [facility] HospitalIjqipilTZKOXCRGZU7712-74-81 04:57:00 Test Item Value Reference Range Interpretation Comments RBC (test code = RBC) 4.56 4.70-6.10 [facility] HospitalUxwrignBVFDKDVKVJ3801-37-82 04:57:00 Test Item Value Reference Range Interpretation Comments Hgb (test code = Hgb) 13.3 14.0-18.0 [facility] HospitalZxxjhkvCQRTRHEWNN9244-92-29 04:57:00 Test Item Value Reference Range Interpretation Comments Hct (test code = Hct) 39.7 42.0-54.0 [facility] HospitalSnmwnudKTDGXTCLYU6147-16-40 04:57:00 Test Item Value Reference Range Interpretation Comments MCV (test code = MCV) 87.0 80.0-94.0 [facility] HospitalQefzcjqDGNXLTYVQL0530-52-30 04:57:00 Test Item Value Reference Range Interpretation Comments MCH (test code = MCH) 29.2 pg 27.0-31.0 [facility] HospitalVwswhmoRCUQXQVZQY1693-66-52 04:57:00 Test Item Value Reference Range Interpretation Comments MCHC (test code = MCHC) 33.6 32.0-36.0 [place] 025630-08-16 04:57:00 Test Item Value Reference Range Interpretation Comments RDW (test code = RDW) 13.1 11.5-14.5 [place] 025630-08-16 04:57:00 Test Item Value Reference Range Interpretation Comments Platelet (test code = Platelet) 162 133-450 [place] 025630-08-16 04:57:00 Test Item Value Reference Range Interpretation Comments MPV (test code = MPV) 9.8 7.4-10.4 [place] 025630-08-16 04:57:00 Test Item Value Reference Range Interpretation Comments Segs (test code = Segs) 79.0 45.0-75.0 [place] [address]-08-16 04:57:00 Test Item Value Reference Range Interpretation Comments Lymphocytes (test code = Lymphocytes) 13.7 20.0-40.0 [place] [address]-08-16 04:57:00 Test Item Value Reference Range Interpretation Comments Monocytes (test code = Monocytes) 6.5 2.0-12.0 [place] 025630-08-16 04:57:00 Test Item Value Reference Range Interpretation Comments Eosinophils (test code = 0.5 See_Comment [A utomated message] The Eosinophils) system which ge nerated this result tra nsmitted reference range : <=4.0. The reference r annemarie was not used to int erpret this result as normal/abnormal . [facility] HospitalFwmugtjFTUJYIRTUU2517-19-68 04:57:00 Test Item Value Reference Range Interpretation Comments Basophils (test code = 0.3 See_Comment [Aut omated message] The Basophils) system which ge nerated this result tra nsmitted reference range : <=1.0. The reference r annemarie was not used to int erpret this result as normal/abnormal . [place] 025630-08-16 04:57:00 Test Item Value Reference Range Interpretation Comments Neutrophils # (test code = Neutrophils 7.3 1.5-8.1 #) [place] 025630-08-16 04:57:00 Test Item Value Reference Range Interpretation Comments Lymphocytes # (test code = Lymphocytes 1.3 1.0-5.5 #) [place] 025630-08-16 04:57:00 Test Item Value Reference Range Interpretation Comments Monocytes # (test code 0.6 See_Comment [Aut omated message] The = Monocytes #) system which generated this result tra nsmitted reference range : <=0.8. The reference r annemarie was not used to int erpret this result as normal/abnormal . [facility] [facility]aw[facility]jLMYKAZIHTE7544[facility] 04:57:00 Test Item Value Reference Range Interpretation Comments Ethanol Lvl (test code = Ethanol Lvl) [facility] g[facility]PkzbjjtMDOHLYXGCL7173-73-94 04:57:00 Test Item Value Reference Range Interpretation Comments Etoh (%) (test code = Etoh (%)) [facility]vs[facility]wwTAWHUJWKHP9670-35-33 04:57:00 Test Item Value Reference Range Interpretation Comments Acetaminoph Lvl (test code (12/14/19 11:57 PM) 10-20 = Acetaminoph Lvl) [facility] CampusUierlxyKEZJXNABIN0768-17-80 04:57:00 Test Item Value Reference Range Interpretation Comments Salicylate Lvl (test 3.4 See_Comment [Autom ated message] The code = Salicylate Lvl) syste m which generated this result tra nsmitted reference range : <=30.0. The reference r annemarie was not used to int erpret this result as normal/abnormal . [facility] [id number] 04:57:00 Test Item Value Reference Range Interpretation Comments Glucose Lvl (test code = Glucose Lvl) 141 70-99 [facility] [id number] 04:57:00 Test Item Value Reference Range Interpretation Comments BUN (test code = BUN) 7 7-22 [facility] [id number] 04:57:00 Test Item Value Reference Range Interpretation Comments Creatinine Lvl (test code = Creatinine 1.10 0.50-1.40 Lvl) [facility] [id number] 04:57:00 Test Item Value Reference Range Interpretation Comments Sodium Lvl (test code = Sodium Lvl) 138 135-145 [facility] [id number] 04:57:00 Test Item Value Reference Range Interpretation Comments Potassium Lvl (test code = Potassium 3.1 3.5-5.1 Lvl) [facility] [id number] 04:57:00 Test Item Value Reference Range Interpretation Comments Chloride Lvl (test code = Chloride Lvl) 106 95-109 [facility] [id number] 04:57:00 Test Item Value Reference Range Interpretation Comments CO2 (test code = CO2) 27 24-32 [facility] [id number] 04:57:00 Test Item Value Reference Range Interpretation Comments Calcium Lvl (test code = Calcium Lvl) 8.9 8.5-10.5 [facility] [id number] 04:57:00 Test Item Value Reference Range Interpretation Comments Albumin Lvl (test code = Albumin Lvl) 4.2 3.5-5.0 [facility] [id number] 04:57:00 Test Item Value Reference Range Interpretation Comments AGAP (test code = AGAP) 8.1 10.0-20.0 [facility] [id number] 04:57:00 Test Item Value Reference Range Interpretation Comments B/C Ratio (test code = B/C Ratio) 6 1 6-25 [facility] [id number] 04:57:00 Test Item Value Reference Range Interpretation Comments eGFR (test code = eGFR) 89 [facility] [id number] 04:57:00 Test Item Value Reference Range Interpretation Comments Total Protein (test code = Total 7.6 6.4-8.4 Protein) [facility] [id number] 04:57:00 Test Item Value Reference Range Interpretation Comments ALT (test code = ALT) 23 See_Comment [Auto mated message] The system which ge nerated this result transmit abdelrahman reference range : <=65. The reference range was not used to interpr et this result as gurpreet l/abnormal. [facility] [id number] 04:57:00 Test Item Value Reference Range Interpretation Comments AST (test code = AST) 16 See_Comment [Auto mated message] The system which ge nerated this result transmit abdelrahman reference range : <=37. The reference range was not used to interpr et this result as gurpreet l/abnormal. [facility] [id number] 04:57:00 Test Item Value Reference Range Interpretation Comments Alk Phos (test code = Alk Phos) 38 39-136 [facility]2020-08-16 04:57:00 Test Item Value Reference Range Interpretation Comments Bili Total (test code = Bili Total) 0.3 0.2-1.3 [facility] [id number] 04:57:00 Test Item Value Reference Range Interpretation Comments Globulin (test code = Globulin) 3.4 2.7-4.2 [facility] [id number] 04:57:00 Test Item Value Reference Range Interpretation Comments A/G Ratio (test code = A/G Ratio) 1.2 1 0.7-1.6 [facility]UfqtfgsDZFYYLDRYE1980-89-87 04:57:00 Test Item Value Reference Range Interpretation Comments WBC (test code = WBC) 9.2 3.7-10.4 [facility] HospitalYhnjmovWJNOOOGQVY3174-64-13 04:57:00 Test Item Value Reference Range Interpretation Comments RBC (test code = RBC) 4.56 4.70-6.10 [facility] HospitalCiunemgFETHJWJIRK1149-93-56 04:57:00 Test Item Value Reference Range Interpretation Comments Hgb (test code = Hgb) 13.3 14.0-18.0 [facility] HospitalZliktwtRYVLLIBSXB7398-18-49 04:57:00 Test Item Value Reference Range Interpretation Comments Hct (test code = Hct) 39.7 42.0-54.0 [facility] HospitalCpekrfxMSGFGFNHYP9983-56-12 04:57:00 Test Item Value Reference Range Interpretation Comments MCV (test code = MCV) 87.0 80.0-94.0 [facility] HospitalBokzmckGDVCFMDLDU3657-74-91 04:57:00 Test Item Value Reference Range Interpretation Comments MCH (test code = MCH) 29.2 pg 27.0-31.0 [facility]vx[facility]edaYHPNKSTGBG5262-22-75 04:57:00 Test Item Value Reference Range Interpretation Comments MCHC (test code = MCHC) 33.6 32.0-36.0 [facility] RegionIpqqyjiQLEIIPYALU1073-46-65 04:57:00 Test Item Value Reference Range Interpretation Comments RDW (test code = RDW) 13.1 11.5-14.5 [facility] HospitalPnlrbciYACESSMHKM2654-26-61 04:57:00 Test Item Value Reference Range Interpretation Comments Platelet (test code = Platelet) 162 133-450 [facility] HospitalPmmbnpwRLLIDHLXIK5569-90-77 04:57:00 Test Item Value Reference Range Interpretation Comments MPV (test code = MPV) 9.8 7.4-10.4 [facility] HospitalMeuqkenJBHKWBWRFR6271-82-44 04:57:00 Test Item Value Reference Range Interpretation Comments Segs (test code = Segs) 79.0 45.0-75.0 [facility] HospitalUlsozooUQZSWVUPEN9839-55-56 04:57:00 Test Item Value Reference Range Interpretation Comments Lymphocytes (test code = Lymphocytes) 13.7 20.0-40.0 [facility] HospitalCjljtjvPFWNRQAYZS3051-34-95 04:57:00 Test Item Value Reference Range Interpretation Comments Monocytes (test code = Monocytes) 6.5 2.0-12.0 [facility] HospitalSdjjvuaTTYGBOLVKP1652-54-59 04:57:00 Test Item Value Reference Range Interpretation Comments Eosinophils (test code = 0.5 See_Comment [A utomated message] The Eosinophils) system which ge nerated this result tra nsmitted reference range : <=4.0. The reference r annemarie was not used to int erpret this result as normal/abnormal . [facility] HospitalGjrgttfEEAWSMXYSA4141-62-21 04:57:00 Test Item Value Reference Range Interpretation Comments Basophils (test code = 0.3 See_Comment [Aut omated message] The Basophils) system which ge nerated this result tra nsmitted reference range : <=1.0. The reference r annemarie was not used to int erpret this result as normal/abnormal . [facility] HospitalXtypafnTCTXDACJOL5220-15-96 04:57:00 Test Item Value Reference Range Interpretation Comments Neutrophils # (test code = Neutrophils 7.3 1.5-8.1 #) [facility] HospitalClmdjacGOUHYCOYTT1822-19-21 04:57:00 Test Item Value Reference Range Interpretation Comments Lymphocytes # (test code = Lymphocytes 1.3 1.0-5.5 #) [facility] HospitalUvlqjfqCROYHTMNAX3745-81-55 04:57:00 Test Item Value Reference Range Interpretation Comments Monocytes # (test code 0.6 See_Comment [Aut omated message] The = Monocytes #) system which generated this result tra nsmitted reference range : <=0.8. The reference r annemarie was not used to int erpret this result as normal/abnormal . [facility]MncljnuPOCGJBWXTZ4783-28-21 04:57:00 Test Item Value Reference Range Interpretation Comments Ethanol Lvl (test code = Ethanol Lvl) no gt [place] [id number] 04:57:00 Test Item Value Reference Range Interpretation Comments Etoh (%) (test code = Etoh (%)) no gt [place] [id number] 04:57:00 Test Item Value Reference Range Interpretation Comments Acetaminoph Lvl (test code (12/14/19 11:57 PM) - = Acetaminoph Lvl) [facility] CampusVpvozvaGVUTLZVINA5345-60-77 04:57:00 Test Item Value Reference Range Interpretation Comments Salicylate Lvl (test 3.4 See_Comment [Autom ated message] The code = Salicylate Lvl) syste m which generated this result tra nsmitted reference range : <=30.0. The reference r annemarie was not used to int erpret this result as normal/abnormal . [facility] [id number] 04:57:00 Test Item Value Reference Range Interpretation Comments Glucose Lvl (test code = Glucose Lvl) 141 70-99 [facility] [id number] 04:57:00 Test Item Value Reference Range Interpretation Comments BUN (test code = BUN) 7 7-22 [facility] [id number] 04:57:00 Test Item Value Reference Range Interpretation Comments Creatinine Lvl (test code = Creatinine 1.10 0.50-1.40 Lvl) [facility] [id number] 04:57:00 Test Item Value Reference Range Interpretation Comments Sodium Lvl (test code = Sodium Lvl) 138 135-145 [facility] [id number] 04:57:00 Test Item Value Reference Range Interpretation Comments Potassium Lvl (test code = Potassium 3.1 3.5-5.1 Lvl) [facility] [id number] 04:57:00 Test Item Value Reference Range Interpretation Comments Chloride Lvl (test code = Chloride Lvl) 106 95-109 [facility] [id number] 04:57:00 Test Item Value Reference Range Interpretation Comments CO2 (test code = CO2) 27 24-32 [facility] [id number] 04:57:00 Test Item Value Reference Range Interpretation Comments Calcium Lvl (test code = Calcium Lvl) 8.9 8.5-10.5 [facility] [id number] 04:57:00 Test Item Value Reference Range Interpretation Comments Albumin Lvl (test code = Albumin Lvl) 4.2 3.5-5.0 [facility] [id number] 04:57:00 Test Item Value Reference Range Interpretation Comments AGAP (test code = AGAP) 8.1 10.0-20.0 [facility] [id number] 04:57:00 Test Item Value Reference Range Interpretation Comments B/C Ratio (test code = B/C Ratio) 6 1 6-25 [facility] [id number] 04:57:00 Test Item Value Reference Range Interpretation Comments eGFR (test code = eGFR) 89 [facility] [id number] 04:57:00 Test Item Value Reference Range Interpretation Comments Total Protein (test code = Total 7.6 6.4-8.4 Protein) [facility] [id number] 04:57:00 Test Item Value Reference Range Interpretation Comments ALT (test code = ALT) 23 See_Comment [Auto mated message] The system which ge nerated this result transmit abdelrahman reference range : <=65. The reference range was not used to interpr et this result as gurpreet l/abnormal. [facility] [id number] 04:57:00 Test Item Value Reference Range Interpretation Comments AST (test code = AST) 16 See_Comment [Auto mated message] The system which ge nerated this result transmit abdelrahman reference range : <=37. The reference range was not used to interpr et this result as gurpreet l/abnormal. [facility] [id number] 04:57:00 Test Item Value Reference Range Interpretation Comments Alk Phos (test code = Alk Phos) 38 39-136 [facility] [id number] 04:57:00 Test Item Value Reference Range Interpretation Comments Bili Total (test code = Bili Total) 0.3 0.2-1.3 [facility] [id number] 04:57:00 Test Item Value Reference Range Interpretation Comments Globulin (test code = Globulin) 3.4 2.7-4.2 [facility] [id number] 04:57:00 Test Item Value Reference Range Interpretation Comments A/G Ratio (test code = A/G Ratio) 1.2 1 0.7-1.6 [facility] HospitalYtbkjpiJNICJMIVZB4870-62-55 04:57:00 Test Item Value Reference Range Interpretation Comments WBC (test code = WBC) 9.2 3.7-10.4 [facility] HospitalOrdopnhMUXZHBUHID8317-67-56 04:57:00 Test Item Value Reference Range Interpretation Comments RBC (test code = RBC) 4.56 4.70-6.10 [facility] HospitalAjsyxdsNMMMBIBMBN1801-83-76 04:57:00 Test Item Value Reference Range Interpretation Comments Hgb (test code = Hgb) 13.3 14.0-18.0 [facility] HospitalTmyotsoZGICENYAGD8678-55-93 04:57:00 Test Item Value Reference Range Interpretation Comments Hct (test code = Hct) 39.7 42.0-54.0 [facility] HospitalMfmxonyJKACFERIIR8230-38-34 04:57:00 Test Item Value Reference Range Interpretation Comments MCV (test code = MCV) 87.0 80.0-94.0 [facility] HospitalHmvarpcTDFVCBUZXK3170-09-61 04:57:00 Test Item Value Reference Range Interpretation Comments MCH (test code = MCH) 29.2 pg 27.0-31.0 [facility] HospitalZbfnpdyNZDXLMAKIG3787-11-89 04:57:00 Test Item Value Reference Range Interpretation Comments MCHC (test code = MCHC) 33.6 32.0-36.0 [facility] HospitalMvuxweaHKDTFHPUVM9649-85-33 04:57:00 Test Item Value Reference Range Interpretation Comments RDW (test code = RDW) 13.1 11.5-14.5 [facility] HospitalVzntijvXFCZPSSRUE8164-24-26 04:57:00 Test Item Value Reference Range Interpretation Comments Platelet (test code = Platelet) 162 133-450 [facility] HospitalEkuneefMOEONNDLCS1180-07-34 04:57:00 Test Item Value Reference Range Interpretation Comments MPV (test code = MPV) 9.8 7.4-10.4 [facility] HospitalZzjvqaqVLLYPRDFJB1885-60-19 04:57:00 Test Item Value Reference Range Interpretation Comments Segs (test code = Segs) 79.0 45.0-75.0 [facility] HospitalNavrjayYQJOXBHUJL4049-29-83 04:57:00 Test Item Value Reference Range Interpretation Comments Lymphocytes (test code = Lymphocytes) 13.7 20.0-40.0 [facility]BynzbsoNTAEABIVQT5938-62-78 04:57:00 Test Item Value Reference Range Interpretation Comments Monocytes (test code = Monocytes) 6.5 2.0-12.0 [facility] HospitalKmviqsgXLZVDKTVZG8265-39-34 04:57:00 Test Item Value Reference Range Interpretation Comments Eosinophils (test code = 0.5 See_Comment [A utomated message] The Eosinophils) system which ge nerated this result tra nsmitted reference range : <=4.0. The reference r annemarie was not used to int erpret this result as normal/abnormal . [facility] HospitalSupqbrbCLQUJITPFH7460-98-14 04:57:00 Test Item Value Reference Range Interpretation Comments Basophils (test code = 0.3 See_Comment [Aut omated message] The Basophils) system which ge nerated this result tra nsmitted reference range : <=1.0. The reference r annemarie was not used to int erpret this result as normal/abnormal . [facility] HospitalDyipermRDKICUNCSY9896-60-52 04:57:00 Test Item Value Reference Range Interpretation Comments Neutrophils # (test code = Neutrophils 7.3 1.5-8.1 #) [facility] HospitalZmvtqaeRGFITSBFJW5752-88-11 04:57:00 Test Item Value Reference Range Interpretation Comments Lymphocytes # (test code = Lymphocytes 1.3 1.0-5.5 #) [facility] HospitalYrdhfmwWKQOBHQKYW0332-81-69 04:57:00 Test Item Value Reference Range Interpretation Comments Monocytes # (test code 0.6 See_Comment [Aut omated message] The = Monocytes #) system which generated this result tra nsmitted reference range : <=0.8. The reference r annemarie was not used to int erpret this result as normal/abnormal . [facility] HospitalVoajjdtTZKKRLFSSJ8866-12-68 04:57:00 Test Item Value Reference Range Interpretation Comments Ethanol Lvl (test code = Ethanol Lvl) no gt [facility] HospitalTsxsiubWPLAYARLEG8087-40-34 04:57:00 Test Item Value Reference Range Interpretation Comments Etoh (%) (test code = Etoh (%)) no gt [facility] HospitalLpnjnbbDGZOKRAPWB9585-80-66 04:57:00 Test Item Value Reference Range Interpretation Comments Acetaminoph Lvl (test code (12/14/19 11:57 PM) 10-20 = Acetaminoph Lvl) [facility] HospitalMbcbfhyUNWWTPNGBG9124-01-88 04:57:00 Test Item Value Reference Range Interpretation Comments Salicylate Lvl (test 3.4 See_Comment [Autom ated message] The code = Salicylate Lvl) syste m which generated this result tra nsmitted reference range : <=30.0. The reference r annemarie was not used to int erpret this result as normal/abnormal . [facility] [id number] 04:57:00 Test Item Value Reference Range Interpretation Comments Glucose Lvl (test code = Glucose Lvl) 141 70-99 [facility] [id number] 04:57:00 Test Item Value Reference Range Interpretation Comments BUN (test code = BUN) 7 7-22 [facility] [id number] 04:57:00 Test Item Value Reference Range Interpretation Comments Creatinine Lvl (test code = Creatinine 1.10 0.50-1.40 Lvl) [facility] [id number] 04:57:00 Test Item Value Reference Range Interpretation Comments Sodium Lvl (test code = Sodium Lvl) 138 135-145 [facility] [id number] 04:57:00 Test Item Value Reference Range Interpretation Comments Potassium Lvl (test code = Potassium 3.1 3.5-5.1 Lvl) [facility] [id number] 04:57:00 Test Item Value Reference Range Interpretation Comments Chloride Lvl (test code = Chloride Lvl) 106 95-109 [facility] [id number] 04:57:00 Test Item Value Reference Range Interpretation Comments CO2 (test code = CO2) 27 24-32 [facility] [id number] 04:57:00 Test Item Value Reference Range Interpretation Comments Calcium Lvl (test code = Calcium Lvl) 8.9 8.5-10.5 [facility] [id number] 04:57:00 Test Item Value Reference Range Interpretation Comments Albumin Lvl (test code = Albumin Lvl) 4.2 3.5-5.0 [facility] [id number] 04:57:00 Test Item Value Reference Range Interpretation Comments AGAP (test code = AGAP) 8.1 10.0-20.0 [facility] [id number] 04:57:00 Test Item Value Reference Range Interpretation Comments B/C Ratio (test code = B/C Ratio) 6 1 6-25 [facility] [id number] 04:57:00 Test Item Value Reference Range Interpretation Comments eGFR (test code = eGFR) 89 [facility] UYKZO2809-49-96 04:57:00 Test Item Value Reference Range Interpretation Comments Total Protein (test code = Total 7.6 6.4-8.4 Protein) [facility] [id number] 04:57:00 Test Item Value Reference Range Interpretation Comments ALT (test code = ALT) 23 See_Comment [Auto mated message] The system which ge nerated this result transmit abdelrahman reference range : <=65. The reference range was not used to interpr et this result as gurpreet l/abnormal. [facility] [id number] 04:57:00 Test Item Value Reference Range Interpretation Comments AST (test code = AST) 16 See_Comment [Auto mated message] The system which ge nerated this result transmit abdelrahman reference range : <=37. The reference range was not used to interpr et this result as gurpreet l/abnormal. [facility] [id number] 04:57:00 Test Item Value Reference Range Interpretation Comments Alk Phos (test code = Alk Phos) 38 39-136 [facility] [id number] 04:57:00 Test Item Value Reference Range Interpretation Comments Bili Total (test code = Bili Total) 0.3 0.2-1.3 [facility] [id number] 04:57:00 Test Item Value Reference Range Interpretation Comments Globulin (test code = Globulin) 3.4 2.7-4.2 [facility] [id number] 04:57:00 Test Item Value Reference Range Interpretation Comments A/G Ratio (test code = A/G Ratio) 1.2 1 0.7-1.6 [facility] HospitalTobeneyQYNBNHHXWW8916-53-11 04:57:00 Test Item Value Reference Range Interpretation Comments WBC (test code = WBC) 9.2 3.7-10.4 [facility] HospitalZwfxowgMSRHANUSTP9738-14-15 04:57:00 Test Item Value Reference Range Interpretation Comments RBC (test code = RBC) 4.56 4.70-6.10 [facility] HospitalLxvkkveWQHNXBXHLY4484-68-10 04:57:00 Test Item Value Reference Range Interpretation Comments Hgb (test code = Hgb) 13.3 14.0-18.0 [facility] HospitalJckjetwEEJZWNEFZE5538-54-41 04:57:00 Test Item Value Reference Range Interpretation Comments Hct (test code = Hct) 39.7 42.0-54.0 [facility] HospitalImwlbkoRMUDWFVSHU4488-05-75 04:57:00 Test Item Value Reference Range Interpretation Comments MCV (test code = MCV) 87.0 80.0-94.0 [facility] HospitalPpsocuoXZHLWKNIZZ4367-95-68 04:57:00 Test Item Value Reference Range Interpretation Comments MCH (test code = MCH) 29.2 pg 27.0-31.0 [facility] HospitalRtieifyRHNEZEKAED3578-26-48 04:57:00 Test Item Value Reference Range Interpretation Comments MCHC (test code = MCHC) 33.6 32.0-36.0 [facility] HospitalOkehsduBPCWZBTZMN0845-52-24 04:57:00 Test Item Value Reference Range Interpretation Comments RDW (test code = RDW) 13.1 11.5-14.5 [facility] HospitalHjcgavsYLPBXUPGBY9896-31-71 04:57:00 Test Item Value Reference Range Interpretation Comments Platelet (test code = Platelet) 162 133-450 [facility] HospitalZzgiprgQWKOCDGNMD8083-68-42 04:57:00 Test Item Value Reference Range Interpretation Comments MPV (test code = MPV) 9.8 7.4-10.4 [facility] HospitalBumpctxIVTHTFLQHN5302-05-57 04:57:00 Test Item Value Reference Range Interpretation Comments Segs (test code = Segs) 79.0 45.0-75.0 [facility] HospitalXdlwbqpFKECHSAWCJ2994-57-64 04:57:00 Test Item Value Reference Range Interpretation Comments Lymphocytes (test code = Lymphocytes) 13.7 20.0-40.0 [facility] HospitalLvqkyceVHUCIBOQTT4657-88-93 04:57:00 Test Item Value Reference Range Interpretation Comments Monocytes (test code = Monocytes) 6.5 2.0-12.0 [facility] HospitalUivjxcrOBTPOTDJCV5689-50-97 04:57:00 Test Item Value Reference Range Interpretation Comments Eosinophils (test code = 0.5 See_Comment [A utomated message] The Eosinophils) system which ge nerated this result tra nsmitted reference range : <=4.0. The reference r annemarie was not used to int erpret this result as normal/abnormal . [facility] HospitalRxnqlnsFRXWQPYVJW2747-64-35 04:57:00 Test Item Value Reference Range Interpretation Comments Basophils (test code = 0.3 See_Comment [Aut omated message] The Basophils) system which ge nerated this result tra nsmitted reference range : <=1.0. The reference r annemarie was not used to int erpret this result as normal/abnormal . [facility] HospitalZdjfdlpZCVJKXLZWP5942-05-96 04:57:00 Test Item Value Reference Range Interpretation Comments Neutrophils # (test code = Neutrophils 7.3 1.5-8.1 #) [facility] HospitalHmofjboJXQYAERROP1967-87-67 04:57:00 Test Item Value Reference Range Interpretation Comments Lymphocytes # (test code = Lymphocytes 1.3 1.0-5.5 #) [facility] HospitalNadnikyNUBPLBSZLO0945-07-97 04:57:00 Test Item Value Reference Range Interpretation Comments Monocytes # (test code 0.6 See_Comment [Aut omated message] The = Monocytes #) system which generated this result tra nsmitted reference range : <=0.8. The reference r annemarie was not used to int erpret this result as normal/abnormal . [facility]JtxgzlvDOXKIHNUOO2086-53-94 04:57:00 Test Item Value Reference Range Interpretation Comments Ethanol Lvl (test code = Ethanol Lvl) [facility] gt [facility]SvcemofQDHENOFPHX6921-46-35 04:57:00 Test Item Value Reference Range Interpretation Comments Etoh (%) (test code = Etoh (%)) no gt [facility] HospitalLkupvgpXSCDUMEHPC5908-15-74 04:57:00 Test Item Value Reference Range Interpretation Comments Acetaminoph Lvl (test code (12/14/19 11:57 PM) 10-20 = Acetaminoph Lvl) [facility] CampusTijeldtGBOGAZDYNB7000-51-22 04:57:00 Test Item Value Reference Range Interpretation Comments Salicylate Lvl (test 3.4 See_Comment [Autom ated message] The code = Salicylate Lvl) syste m which generated this result tra nsmitted reference range : <=30.0. The reference r annemarie was not used to int erpret this result as normal/abnormal . [facility] [id number] 04:57:00 Test Item Value Reference Range Interpretation Comments Glucose Lvl (test code = Glucose Lvl) 141 70-99 [facility]Spend[facility] Payments CompanyKIM[place] [id number] 04:57:00 Test Item Value Reference Range Interpretation Comments BUN (test code = BUN) 7 7-22 [facility]Spend[facility] Payments CompanyCRAWLEY MEMORIAL [id number] 04:57:00 Test Item Value Reference Range Interpretation Comments Creatinine Lvl (test code = Creatinine 1.10 0.50-1.40 Lvl) [facility] [id number] 04:57:00 Test Item Value Reference Range Interpretation Comments Sodium Lvl (test code = Sodium Lvl) 138 135-145 [facility] [id number] 04:57:00 Test Item Value Reference Range Interpretation Comments Potassium Lvl (test code = Potassium 3.1 3.5-5.1 Lvl) [facility] [id number] 04:57:00 Test Item Value Reference Range Interpretation Comments Chloride Lvl (test code = Chloride Lvl) 106 95-109 [facility] [id number] 04:57:00 Test Item Value Reference Range Interpretation Comments CO2 (test code = CO2) 27 24-32 [facility] [id number] 04:57:00 Test Item Value Reference Range Interpretation Comments Calcium Lvl (test code = Calcium Lvl) 8.9 8.5-10.5 [facility] [id number] 04:57:00 Test Item Value Reference Range Interpretation Comments Albumin Lvl (test code = Albumin Lvl) 4.2 3.5-5.0 [facility] [id number] 04:57:00 Test Item Value Reference Range Interpretation Comments AGAP (test code = AGAP) 8.1 10.0-20.0 [facility] [id number] 04:57:00 Test Item Value Reference Range Interpretation Comments B/C Ratio (test code = B/C Ratio) 6 1 6-25 [facility] [id number] 04:57:00 Test Item Value Reference Range Interpretation Comments eGFR (test code = eGFR) 89 [facility] [id number] 04:57:00 Test Item Value Reference Range Interpretation Comments Total Protein (test code = Total 7.6 6.4-8.4 Protein) [place] [id number] 04:57:00 Test Item Value Reference Range Interpretation Comments ALT (test code = ALT) 23 See_Comment [Auto mated message] The system which ge nerated this result transmit abdelrahman reference range : <=65. The reference range was not used to interpr et this result as gurpreet l/abnormal. [facility] [id number] 04:57:00 Test Item Value Reference Range Interpretation Comments AST (test code = AST) 16 See_Comment [Auto mated message] The system which ge nerated this result transmit abdelrahman reference range : <=37. The reference range was not used to interpr et this result as gurpreet l/abnormal. [facility] [id number] 04:57:00 Test Item Value Reference Range Interpretation Comments Alk Phos (test code = Alk Phos) 38 39-136 [facility] [id number] 04:57:00 Test Item Value Reference Range Interpretation Comments Bili Total (test code = Bili Total) 0.3 0.2-1.3 [facility] [id number] 04:57:00 Test Item Value Reference Range Interpretation Comments Globulin (test code = Globulin) 3.4 2.7-4.2 [facility] [id number] 04:57:00 Test Item Value Reference Range Interpretation Comments A/G Ratio (test code = A/G Ratio) 1.2 1 0.7-1.6 [facility] HospitalPfshtucHMMCXPIQCJ4238-33-64 04:57:00 Test Item Value Reference Range Interpretation Comments WBC (test code = WBC) 9.2 3.7-10.4 [place] [address]-08-16 04:57:00 Test Item Value Reference Range Interpretation Comments RBC (test code = RBC) 4.56 4.70-6.10 [place] [address]-08-16 04:57:00 Test Item Value Reference Range Interpretation Comments Hgb (test code = Hgb) 13.3 14.0-18.0 [facility] HospitalZntinyjPBRCCIIAWY2226-88-53 04:57:00 Test Item Value Reference Range Interpretation Comments Hct (test code = Hct) 39.7 42.0-54.0 [place] 025630-08-16 04:57:00 Test Item Value Reference Range Interpretation Comments MCV (test code = MCV) 87.0 80.0-94.0 [place] 025630-08-16 04:57:00 Test Item Value Reference Range Interpretation Comments MCH (test code = MCH) 29.2 pg 27.0-31.0 [facility] HospitalDpqbjatRKZSSNKAMR2579-06-65 04:57:00 Test Item Value Reference Range Interpretation Comments MCHC (test code = MCHC) 33.6 32.0-36.0 [facility] HospitalYsnzdfxPQAIIPNPUF8008-54-68 04:57:00 Test Item Value Reference Range Interpretation Comments RDW (test code = RDW) 13.1 11.5-14.5 [place] [address]-08-16 04:57:00 Test Item Value Reference Range Interpretation Comments Platelet (test code = Platelet) 162 133-450 [facility] HospitalVglyzpbCXRXZTARGF7483-63-56 04:57:00 Test Item Value Reference Range Interpretation Comments MPV (test code = MPV) 9.8 7.4-10.4 [facility] HospitalJxgjkrfOUXBAIVQVR4370-61-10 04:57:00 Test Item Value Reference Range Interpretation Comments Segs (test code = Segs) 79.0 45.0-75.0 [facility] HospitalTaqehzyLXXBZBHWUW1531-61-56 04:57:00 Test Item Value Reference Range Interpretation Comments Lymphocytes (test code = Lymphocytes) 13.7 20.0-40.0 [place] 025630-08-16 04:57:00 Test Item Value Reference Range Interpretation Comments Monocytes (test code = Monocytes) 6.5 2.0-12.0 [place] [address]-08-16 04:57:00 Test Item Value Reference Range Interpretation Comments Eosinophils (test code = 0.5 See_Comment [A utomated message] The Eosinophils) system which ge nerated this result tra nsmitted reference range : <=4.0. The reference r annemarie was not used to int erpret this result as normal/abnormal . [place] 025630-08-16 04:57:00 Test Item Value Reference Range Interpretation Comments Basophils (test code = 0.3 See_Comment [Aut omated message] The Basophils) system which ge nerated this result tra nsmitted reference range : <=1.0. The reference r annemarie was not used to int erpret this result as normal/abnormal . [facility] HospitalOkecclfNFWDQWMJSV8664-88-46 04:57:00 Test Item Value Reference Range Interpretation Comments Neutrophils # (test code = Neutrophils 7.3 1.5-8.1 #) [facility] HospitalCuythsoFAOSXSZGNZ0640-06-18 04:57:00 Test Item Value Reference Range Interpretation Comments Lymphocytes # (test code = Lymphocytes 1.3 1.0-5.5 #) [facility] HospitalEwlwlqgAWGXGKFFPP7412-40-95 04:57:00 Test Item Value Reference Range Interpretation Comments Monocytes # (test code 0.6 See_Comment [Aut omated message] The = Monocytes #) system which generated this result tra nsmitted reference range : <=0.8. The reference r annemarie was not used to int erpret this result as normal/abnormal . [facility] HospitalCgtblgnGDLGBWWKCW2861-07-60 04:57:00 Test Item Value Reference Range Interpretation Comments Ethanol Lvl (test code = Ethanol Lvl) no gt [facility] HospitalJsjwwuxUHEWYHHELD6258-76-51 04:57:00 Test Item Value Reference Range Interpretation Comments Etoh (%) (test code = Etoh (%)) no gt [facility] HospitalAdhqtwnVUTJBODSVC5002-31-97 04:57:00 Test Item Value Reference Range Interpretation Comments Acetaminoph Lvl (test code (12/14/19 11:57 PM) 10-20 = Acetaminoph Lvl) [facility] HospitalLdixtwpLJUDKVYUAU0885-52-85 04:57:00 Test Item Value Reference Range Interpretation Comments Salicylate Lvl (test 3.4 See_Comment [Autom ated message] The code = Salicylate Lvl) syste m which generated this result tra nsmitted reference range : <=30.0. The reference r annemarie was not used to int erpret this result as normal/abnormal . [facility]2020-08-16 04:57:00 Test Item Value Reference Range Interpretation Comments Glucose Lvl (test code = Glucose Lvl) 141 70-99 [facility]2020-08-16 04:57:00 Test Item Value Reference Range Interpretation Comments BUN (test code = BUN) 7 7-22 [facility] HospitalSpendSmart Payments CompanyCRAWLEY MEMORIAL [id number] 04:57:00 Test Item Value Reference Range Interpretation Comments Creatinine Lvl (test code = Creatinine 1.10 0.50-1.40 Lvl) [facility]SpendSmart Payments CompanyCRAWLEY MEMORIAL HOSPITALRMKWN2907-26-77 04:57:00 Test Item Value Reference Range Interpretation Comments Sodium Lvl (test code = Sodium Lvl) 138 135-145 [facility] [id number] 04:57:00 Test Item Value Reference Range Interpretation Comments Potassium Lvl (test code = Potassium 3.1 3.5-5.1 Lvl) [facility]Spend[facility] Payments CompanyCRAWLEY MEMORIAL HOSPITALQRNKS5710-67-23 04:57:00 Test Item Value Reference Range Interpretation Comments Chloride Lvl (test code = Chloride Lvl) 106 95-109 [facility] [id number] 04:57:00 Test Item Value Reference Range Interpretation Comments CO2 (test code = CO2) 27 24-32 [facility]Spend[facility] Payments CompanyKIM[place] [id number] 04:57:00 Test Item Value Reference Range Interpretation Comments Calcium Lvl (test code = Calcium Lvl) 8.9 8.5-10.5 [facility] [id number] 04:57:00 Test Item Value Reference Range Interpretation Comments Albumin Lvl (test code = Albumin Lvl) 4.2 3.5-5.0 [facility] [id number] 04:57:00 Test Item Value Reference Range Interpretation Comments AGAP (test code = AGAP) 8.1 10.0-20.0 [facility] [id number] 04:57:00 Test Item Value Reference Range Interpretation Comments B/C Ratio (test code = B/C Ratio) 6 1 6-25 [facility] [id number] 04:57:00 Test Item Value Reference Range Interpretation Comments eGFR (test code = eGFR) 89 [facility]2020-08-16 04:57:00 Test Item Value Reference Range Interpretation Comments Total Protein (test code = Total 7.6 6.4-8.4 Protein) [facility] [id number] 04:57:00 Test Item Value Reference Range Interpretation Comments ALT (test code = ALT) 23 See_Comment [Auto mated message] The system which ge nerated this result transmit abdelrahman reference range : <=65. The reference range was not used to interpr et this result as gurpreet l/abnormal. [facility] [id number] 04:57:00 Test Item Value Reference Range Interpretation Comments AST (test code = AST) 16 See_Comment [Auto mated message] The system which ge nerated this result transmit abdelrahman reference range : <=37. The reference range was not used to interpr et this result as gurpreet l/abnormal. [facility] [id number] 04:57:00 Test Item Value Reference Range Interpretation Comments Alk Phos (test code = Alk Phos) 38 39-136 [facility] [id number] 04:57:00 Test Item Value Reference Range Interpretation Comments Bili Total (test code = Bili Total) 0.3 0.2-1.3 [facility]FUN[facility] [id number] 04:57:00 Test Item Value Reference Range Interpretation Comments Globulin (test code = Globulin) 3.4 2.7-4.2 [facility] [id number] 04:57:00 Test Item Value Reference Range Interpretation Comments A/G Ratio (test code = A/G Ratio) 1.2 1 0.7-1.6 [facility] HospitalConljokWPWHKKWSHH0007-25-99 04:57:00 Test Item Value Reference Range Interpretation Comments WBC (test code = WBC) 9.2 3.7-10.4 [facility] HospitalVqvewwnRSCGCFDOVS6063-15-99 04:57:00 Test Item Value Reference Range Interpretation Comments RBC (test code = RBC) 4.56 4.70-6.10 [facility] HospitalDylxqubKXMBKMXUUO0198-91-43 04:57:00 Test Item Value Reference Range Interpretation Comments Hgb (test code = Hgb) 13.3 14.0-18.0 [facility] HospitalTwxueebCYVKYFPSDI2961-44-50 04:57:00 Test Item Value Reference Range Interpretation Comments Hct (test code = Hct) 39.7 42.0-54.0 [place] [address]-08-16 04:57:00 Test Item Value Reference Range Interpretation Comments MCV (test code = MCV) 87.0 80.0-94.0 [facility] HospitalMtuddqpUZIMIYOQFP6427-19-76 04:57:00 Test Item Value Reference Range Interpretation Comments MCH (test code = MCH) 29.2 pg 27.0-31.0 [facility] HospitalIjkzilhITTUIUGMJN5838-23-56 04:57:00 Test Item Value Reference Range Interpretation Comments MCHC (test code = MCHC) 33.6 32.0-36.0 [facility] HospitalTrpohyjMJOZIQBDBM7422-01-41 04:57:00 Test Item Value Reference Range Interpretation Comments RDW (test code = RDW) 13.1 11.5-14.5 [facility] HospitalFioyypwEJKHFPMYKM4966-53-12 04:57:00 Test Item Value Reference Range Interpretation Comments Platelet (test code = Platelet) 162 133-450 [facility] HospitalMxnouzzFXZEXBXCAA2959-28-72 04:57:00 Test Item Value Reference Range Interpretation Comments MPV (test code = MPV) 9.8 7.4-10.4 [facility] HospitalPkugmieONOHMVZOJD2913-77-50 04:57:00 Test Item Value Reference Range Interpretation Comments Segs (test code = Segs) 79.0 45.0-75.0 [facility] HospitalAnvfnjcAUEYIDBCWI0138-66-93 04:57:00 Test Item Value Reference Range Interpretation Comments Lymphocytes (test code = Lymphocytes) 13.7 20.0-40.0 [facility] HospitalXydliedFJZBFUHGFF0663-06-54 04:57:00 Test Item Value Reference Range Interpretation Comments Monocytes (test code = Monocytes) 6.5 2.0-12.0 [facility] HospitalQddaqmtPWKJBDUHDN2858-63-27 04:57:00 Test Item Value Reference Range Interpretation Comments Eosinophils (test code = 0.5 See_Comment [A utomated message] The Eosinophils) system which ge nerated this result tra nsmitted reference range : <=4.0. The reference r annemarie was not used to int erpret this result as normal/abnormal . [facility] HospitalOrjnrdjJASESWHZEU3590-05-04 04:57:00 Test Item Value Reference Range Interpretation Comments Basophils (test code = 0.3 See_Comment [Aut omated message] The Basophils) system which ge nerated this result tra nsmitted reference range : <=1.0. The reference r annemarie was not used to int erpret this result as normal/abnormal . [facility] HospitalCfoucenSBLKGIMSHR4270-38-32 04:57:00 Test Item Value Reference Range Interpretation Comments Neutrophils # (test code = Neutrophils 7.3 1.5-8.1 #) [facility] HospitalGuazjncXZFDTGGSNB2759-92-37 04:57:00 Test Item Value Reference Range Interpretation Comments Lymphocytes # (test code = Lymphocytes 1.3 1.0-5.5 #) [facility] HospitalOuqhlakBZREYTBEQG9470-72-76 04:57:00 Test Item Value Reference Range Interpretation Comments Monocytes # (test code 0.6 See_Comment [Aut omated message] The = Monocytes #) system which generated this result tra nsmitted reference range : <=0.8. The reference r annemarie was not used to int erpret this result as normal/abnormal . [facility] HospitalWvgobbdEPIVTNGLLA8425-58-23 04:57:00 Test Item Value Reference Range Interpretation Comments Ethanol Lvl (test code = Ethanol Lvl) no gt [facility] HospitalCrtoarwFTGKBJROBE1631-63-80 04:57:00 Test Item Value Reference Range Interpretation Comments Etoh (%) (test code = Etoh (%)) no gt [facility] HospitalAoigbzgUIYAZELYHK6717-14-92 04:57:00 Test Item Value Reference Range Interpretation Comments Acetaminoph Lvl (test code (12/14/19 11:57 PM) 10-20 = Acetaminoph Lvl) [facility] HospitalPnrffnqZZFHBKOIMW6053-50-73 04:57:00 Test Item Value Reference Range Interpretation Comments Salicylate Lvl (test 3.4 See_Comment [Autom ated message] The code = Salicylate Lvl) syste m which generated this result tra nsmitted reference range : <=30.0. The reference r annemarie was not used to int erpret this result as normal/abnormal . [facility]-08-16 04:57:00 Test Item Value Reference Range Interpretation Comments Glucose Lvl (test code = Glucose Lvl) 141 70-99 [facility] [id number] 04:57:00 Test Item Value Reference Range Interpretation Comments BUN (test code = BUN) 7 7-22 [facility] [id number] 04:57:00 Test Item Value Reference Range Interpretation Comments Creatinine Lvl (test code = Creatinine 1.10 0.50-1.40 Lvl) [facility] [place] [id number] 04:57:00 Test Item Value Reference Range Interpretation Comments Sodium Lvl (test code = Sodium Lvl) 138 135-145 [place] [address]-08-16 04:57:00 Test Item Value Reference Range Interpretation Comments Potassium Lvl (test code = Potassium 3.1 3.5-5.1 Lvl) [place] [address]-08-16 04:57:00 Test Item Value Reference Range Interpretation Comments Chloride Lvl (test code = Chloride Lvl) 106 95-109 [place] [address]-08-16 04:57:00 Test Item Value Reference Range Interpretation Comments CO2 (test code = CO2) 27 24-32 [place] [address]-08-16 04:57:00 Test Item Value Reference Range Interpretation Comments Calcium Lvl (test code = Calcium Lvl) 8.9 8.5-10.5 [place] [address]-08-16 04:57:00 Test Item Value Reference Range Interpretation Comments Albumin Lvl (test code = Albumin Lvl) 4.2 3.5-5.0 [place] [address]-08-16 04:57:00 Test Item Value Reference Range Interpretation Comments AGAP (test code = AGAP) 8.1 10.0-20.0 [place] [address]-08-16 04:57:00 Test Item Value Reference Range Interpretation Comments B/C Ratio (test code = B/C Ratio) 6 1 6-25 [place] [address]-08-16 04:57:00 Test Item Value Reference Range Interpretation Comments eGFR (test code = eGFR) 89 [place] [address]-08-16 04:57:00 Test Item Value Reference Range Interpretation Comments Total Protein (test code = Total 7.6 6.4-8.4 Protein) [place] [address]-08-16 04:57:00 Test Item Value Reference Range Interpretation Comments ALT (test code = ALT) 23 See_Comment [Auto mated message] The system which ge nerated this result transmit abdelrahman reference range : <=65. The reference range was not used to interpr et this result as gurpreet l/abnormal. [facility]FUN[facility] [id number] 04:57:00 Test Item Value Reference Range Interpretation Comments AST (test code = AST) 16 See_Comment [Auto mated message] The system which ge nerated this result transmit abdelrahman reference range : <=37. The reference range was not used to interpr et this result as gurpreet l/abnormal. [facility] [id number] 04:57:00 Test Item Value Reference Range Interpretation Comments Alk Phos (test code = Alk Phos) 38 39-136 [facility]2020-08-16 04:57:00 Test Item Value Reference Range Interpretation Comments Bili Total (test code = Bili Total) 0.3 0.2-1.3 [facility]2020-08-16 04:57:00 Test Item Value Reference Range Interpretation Comments Globulin (test code = Globulin) 3.4 2.7-4.2 [facility] [id number] 04:57:00 Test Item Value Reference Range Interpretation Comments A/G Ratio (test code = A/G Ratio) 1.2 1 0.7-1.6 [place] [address]-08-16 04:57:00 Test Item Value Reference Range Interpretation Comments WBC (test code = WBC) 9.2 3.7-10.4 [place] [address]-08-16 04:57:00 Test Item Value Reference Range Interpretation Comments RBC (test code = RBC) 4.56 4.70-6.10 [facility] HospitalLvevcoyUJOLIIPLVJ7821-11-67 04:57:00 Test Item Value Reference Range Interpretation Comments Hgb (test code = Hgb) 13.3 14.0-18.0 [place] [address]-08-16 04:57:00 Test Item Value Reference Range Interpretation Comments Hct (test code = Hct) 39.7 42.0-54.0 [facility] HospitalBadlvmnHJOSKWRVRY7011-94-51 04:57:00 Test Item Value Reference Range Interpretation Comments MCV (test code = MCV) 87.0 80.0-94.0 [place] [address]-08-16 04:57:00 Test Item Value Reference Range Interpretation Comments MCH (test code = MCH) 29.2 pg 27.0-31.0 [facility]XrwwmdcNWAJVKKESD1217-49-32 04:57:00 Test Item Value Reference Range Interpretation Comments MCHC (test code = MCHC) 33.6 32.0-36.0 [place] [address]-08-16 04:57:00 Test Item Value Reference Range Interpretation Comments RDW (test code = RDW) 13.1 11.5-14.5 [place] 025630-08-16 04:57:00 Test Item Value Reference Range Interpretation Comments Platelet (test code = Platelet) 162 133-450 [place] 025630-08-16 04:57:00 Test Item Value Reference Range Interpretation Comments MPV (test code = MPV) 9.8 7.4-10.4 [place] 025630-08-16 04:57:00 Test Item Value Reference Range Interpretation Comments Segs (test code = Segs) 79.0 45.0-75.0 [place] 025630-08-16 04:57:00 Test Item Value Reference Range Interpretation Comments Lymphocytes (test code = Lymphocytes) 13.7 20.0-40.0 [place] 025630-08-16 04:57:00 Test Item Value Reference Range Interpretation Comments Monocytes (test code = Monocytes) 6.5 2.0-12.0 [facility] HospitalBksyjmsUPZQTCGCQG6497-74-25 04:57:00 Test Item Value Reference Range Interpretation Comments Eosinophils (test code = 0.5 See_Comment [A utomated message] The Eosinophils) system which ge nerated this result tra nsmitted reference range : <=4.0. The reference r annemarie was not used to int erpret this result as normal/abnormal . [facility] HospitalZpxrdlnAQLNLMDXNX7114-07-64 04:57:00 Test Item Value Reference Range Interpretation Comments Basophils (test code = 0.3 See_Comment [Aut omated message] The Basophils) system which ge nerated this result tra nsmitted reference range : <=1.0. The reference r annemarie was not used to int erpret this result as normal/abnormal . [facility] HospitalZjpxxqrHZSTXVQEAK4289-10-34 04:57:00 Test Item Value Reference Range Interpretation Comments Neutrophils # (test code = Neutrophils 7.3 1.5-8.1 #) [place] 025630-08-16 04:57:00 Test Item Value Reference Range Interpretation Comments Lymphocytes # (test code = Lymphocytes 1.3 1.0-5.5 #) [facility] HospitalFzfyjwtBHFEQMRSBZ4320-73-18 04:57:00 Test Item Value Reference Range Interpretation Comments Monocytes # (test code 0.6 See_Comment [Aut omated message] The = Monocytes #) system which generated this result tra nsmitted reference range : <=0.8. The reference r annemarie was not used to int erpret this result as normal/abnormal . [place] 29173020-08-16 04:57:00 Test Item Value Reference Range Interpretation Comments Ethanol Lvl (test code = Ethanol Lvl) no gt [place] 29173020-08-16 04:57:00 Test Item Value Reference Range Interpretation Comments Etoh (%) (test code = Etoh (%)) no gt [place] 29173020-08-16 04:57:00 Test Item Value Reference Range Interpretation Comments Acetaminoph Lvl (test code (12/14/19 11:57 PM) 10-20 = Acetaminoph Lvl) [place] 29173020-08-16 04:57:00 Test Item Value Reference Range Interpretation Comments Salicylate Lvl (test 3.4 See_Comment [Autom ated message] The code = Salicylate Lvl) syste m which generated this result tra nsmitted reference range : <=30.0. The reference r annemarie was not used to int erpret this result as normal/abnormal . [facility]LxehxlkAAINZWKDVLTC4135-40-35 13:17:00 Test Item Value Reference Range Interpretation Comments Sodium Lvl (test code = Sodium Lvl) 135 135-145 [facility]FvjvzagNLMQCLTHECXP4804-44-18 13:17:00 Test Item Value Reference Range Interpretation Comments Potassium Lvl (test code = Potassium 3.8 3.5-5.1 Lvl) [facility] HospitalWmxcyjtPTRPKXZCZDRI4807-04-77 13:17:00 Test Item Value Reference Range Interpretation Comments Calcium Lvl (test code = Calcium Lvl) 9.3 8.5-10.5 [facility] HospitalEhbgqenVEQSICKFKUHX9122-87-85 13:17:00 Test Item Value Reference Range Interpretation Comments CO2 (test code = CO2) 23 24-32 [facility] HospitalNyibacdIMDVDMCQBYSX5970-12-29 13:17:00 Test Item Value Reference Range Interpretation Comments Chloride Lvl (test code = Chloride Lvl) 101 95-109 [facility] HospitalHetojnsQMRRUDAACTQR1141-37-72 13:17:00 Test Item Value Reference Range Interpretation Comments Glucose Lvl (test code = Glucose Lvl) 94 70-99 [facility]EnwsxhzAQKKRHPABVNO8277-91-53 13:17:00 Test Item Value Reference Range Interpretation Comments BUN (test code = BUN) 17 7-22 [facility]xjutjwUJYDAQNPYB2332-45-49 13:17:00 Test Item Value Reference Range Interpretation Comments MCHC (test code = MCHC) 33.6 32.0-36.0 [facility]EvmrtrzIHMKTRTPFN5229-60-31 13:17:00 Test Item Value Reference Range Interpretation Comments RDW (test code = RDW) 14.7 11.5-14.5 [facility] HospitalMuuzgitTKSQGUHBQF2304-56-13 13:17:00 Test Item Value Reference Range Interpretation Comments MCH (test code = MCH) 27.9 pg 27.0-31.0 [facility] HospitalKofpzsiYITYNIKRHA3556-43-12 13:17:00 Test Item Value Reference Range Interpretation Comments MCV (test code = MCV) 83.1 80.0-94.0 [facility] HospitalEfojkuuXMABIREPXN8509-09-05 13:17:00 Test Item Value Reference Range Interpretation Comments MPV (test code = MPV) 9.9 7.4-10.4 [facility] HospitalJzoqbbhNNWIGBPAZX6157-99-97 13:17:00 Test Item Value Reference Range Interpretation Comments Platelet (test code = Platelet) 165 133-450 [facility] HospitalDbypzyvPNAEEDPQUD8099-02-83 13:17:00 Test Item Value Reference Range Interpretation Comments RBC (test code = RBC) 4.63 4.70-6.10 [facility] HospitalNmbgqwhDLJOEHQQXE6578-91-93 13:17:00 Test Item Value Reference Range Interpretation Comments Hgb (test code = Hgb) 12.9 14.0-18.0 [facility] HospitalPvenuwhYXNSYIXMHQ3370-66-32 13:17:00 Test Item Value Reference Range Interpretation Comments Hct (test code = Hct) 38.4 42.0-54.0 [facility] HospitalTtxlcekOVDBMHHDPH9781-05-20 13:17:00 Test Item Value Reference Range Interpretation Comments WBC (test code = WBC) 8.2 3.7-10.4 [facility] HospitalOvsfhriDLTRMCTYCL9144-35-02 13:17:00 Test Item Value Reference Range Interpretation Comments Monocytes # (test code 0.9 See_Comment [Aut omated message] The = Monocytes #) system which generated this result tra nsmitted reference range : <=0.8. The reference r annemarie was not used to int erpret this result as normal/abnormal . [facility] HospitalXjpfiurQEGYXZPVWX0447-01-33 13:17:00 Test Item Value Reference Range Interpretation Comments Eosinophils # (test code 0.1 See_Comment [A utomated message] The = Eosinophils #) system whic h generated this result tra nsmitted reference range : <=0.5. The reference r annemarie was not used to int erpret this result as normal/abnormal . [facility] HospitalQtkriovGLKGBUNWMN9967-89-62 13:17:00 Test Item Value Reference Range Interpretation Comments Lymphocytes # (test code = Lymphocytes 1.1 1.0-5.5 #) [facility] HospitalKitkkfeQSIZVJRYBC4888-15-60 13:17:00 Test Item Value Reference Range Interpretation Comments Neutrophils # (test code = Neutrophils 6.1 1.5-8.1 #) [facility] HospitalIvbrqlfSKDVCECOKZ6830-78-54 13:17:00 Test Item Value Reference Range Interpretation Comments Monocytes (test code = Monocytes) 11.1 2.0-12.0 [facility] HospitalCvefxzgKVJRVDMFXH7646-43-51 13:17:00 Test Item Value Reference Range Interpretation Comments Eosinophils (test code = 0.9 See_Comment [A utomated message] The Eosinophils) system which ge nerated this result tra nsmitted reference range : <=4.0. The reference r annemarie was not used to int erpret this result as normal/abnormal . [facility] HospitalCskbwozAOVFZGXSJA1362-54-83 13:17:00 Test Item Value Reference Range Interpretation Comments Basophils (test code = 0.2 See_Comment [Aut omated message] The Basophils) system which ge nerated this result tra nsmitted reference range : <=1.0. The reference r annemarie was not used to int erpret this result as normal/abnormal . [facility] HospitalYbcycveNLXOMZQCGJ1556-78-70 13:17:00 Test Item Value Reference Range Interpretation Comments Segs (test code = Segs) 74.9 45.0-75.0 [facility] HospitalUxxuhyxSYFCBKYKVQ6475-57-19 13:17:00 Test Item Value Reference Range Interpretation Comments Lymphocytes (test code = Lymphocytes) 12.9 20.0-40.0 [facility]BsktqdwNPEZADVTNV2043-99-58 13:17:00 Test Item Value Reference Range Interpretation Comments Salicylate Lvl (test no gt See_Comment [Autom ated message] The code = Salicylate Lvl) syste m which generated this result tra nsmitted reference range : <=30.0. The reference r annemarie was not used to int erpret this result as normal/abnormal . [facility] HospitalTzphdisPTQVSLFAJD5252-63-02 13:17:00 Test Item Value Reference Range Interpretation Comments Acetaminoph Lvl (test code = 3 10-20 Acetaminoph Lvl) [facility] HospitalCARDIAC XNWMWVF1853-93-21 13:17:00 Test Item Value Reference Range Interpretation Comments Total CK (test code = Total CK) 815 12-191 [facility] HospitalSwmlipaTQJKFACSUBVO2681-88-92 13:17:00 Test Item Value Reference Range Interpretation Comments AGAP (test code = AGAP) 14.8 10.0-20.0 [facility] HospitalQbbxjazBCFXLOHBEAKZ9476-07-59 13:17:00 Test Item Value Reference Range Interpretation Comments eGFR (test code = eGFR) 93 [facility] HospitalGtirvfjPNAVDWHOULCO7313-61-88 13:17:00 Test Item Value Reference Range Interpretation Comments Creatinine Lvl (test code = Creatinine 1.07 0.50-1.40 Lvl) [facility]ZaktewrUQKJJCRQSIZR1900-88-12 13:17:00 Test Item Value Reference Range Interpretation Comments Sodium Lvl (test code = Sodium Lvl) 135 135-145 [facility] HospitalWhqklqpMUKIEYTFXOYQ6170-43-46 13:17:00 Test Item Value Reference Range Interpretation Comments Potassium Lvl (test code = Potassium 3.8 3.5-5.1 Lvl) [facility] HospitalNxsqygeKTLUUOJQVEUY1219-68-51 13:17:00 Test Item Value Reference Range Interpretation Comments Calcium Lvl (test code = Calcium Lvl) 9.3 8.5-10.5 [facility] HospitalXsmtbifQYRSTOAAUIFV6613-37-43 13:17:00 Test Item Value Reference Range Interpretation Comments CO2 (test code = CO2) 23 24-32 [facility] HospitalWxrsgcwAMIWWCCFDZFD1588-85-47 13:17:00 Test Item Value Reference Range Interpretation Comments Chloride Lvl (test code = Chloride Lvl) 101 95-109 [facility] HospitalCbokoqqDRDAKDVDCLXM0571-53-33 13:17:00 Test Item Value Reference Range Interpretation Comments Glucose Lvl (test code = Glucose Lvl) 94 70-99 [facility] HospitalRjnkovjFRYGAYVOZMIT1346-55-24 13:17:00 Test Item Value Reference Range Interpretation Comments BUN (test code = BUN) 17 7-22 [facility]YjjvzycDRYVCTMWZK4153-00-67 13:17:00 Test Item Value Reference Range Interpretation Comments MCHC (test code = MCHC) 33.6 32.0-36.0 [facility] HospitalWhadhupHKFHYBRDGL8819-79-46 13:17:00 Test Item Value Reference Range Interpretation Comments RDW (test code = RDW) 14.7 11.5-14.5 [facility] HospitalQfcysixAISGGMQOQQ5025-61-23 13:17:00 Test Item Value Reference Range Interpretation Comments MCH (test code = MCH) 27.9 pg 27.0-31.0 [facility] HospitalRqykbrnXDJCGFPFZR1285-63-72 13:17:00 Test Item Value Reference Range Interpretation Comments MCV (test code = MCV) 83.1 80.0-94.0 [facility] HospitalBfhlchnJPPAYIKPTG3816-37-08 13:17:00 Test Item Value Reference Range Interpretation Comments MPV (test code = MPV) 9.9 7.4-10.4 [facility] HospitalSqrjgnnHZVYCZXVLJ1066-52-84 13:17:00 Test Item Value Reference Range Interpretation Comments Platelet (test code = Platelet) 165 133-450 [facility] HospitalDvftbgyHBOPNSBCQR1058-58-61 13:17:00 Test Item Value Reference Range Interpretation Comments RBC (test code = RBC) 4.63 4.70-6.10 [facility] HospitalZdwbxtaHMVXYNGQZS2065-59-37 13:17:00 Test Item Value Reference Range Interpretation Comments Hgb (test code = Hgb) 12.9 14.0-18.0 [facility] HospitalOympqqcWXYLOHZPJX1682-04-00 13:17:00 Test Item Value Reference Range Interpretation Comments Hct (test code = Hct) 38.4 42.0-54.0 [facility] HospitalZucyfrwOUWBBDIFFT2110-45-50 13:17:00 Test Item Value Reference Range Interpretation Comments WBC (test code = WBC) 8.2 3.7-10.4 [facility] HospitalNppqfqgVWYNSILSOO4480-03-39 13:17:00 Test Item Value Reference Range Interpretation Comments Monocytes # (test code 0.9 See_Comment [Aut omated message] The = Monocytes #) system which generated this result tra nsmitted reference range : <=0.8. The reference r annemarie was not used to int erpret this result as normal/abnormal . [facility] HospitalQfvjrnkURWZHULWRF3502-10-89 13:17:00 Test Item Value Reference Range Interpretation Comments Eosinophils # (test code 0.1 See_Comment [A utomated message] The = Eosinophils #) system whic h generated this result tra nsmitted reference range : <=0.5. The reference r annemarie was not used to int erpret this result as normal/abnormal . [facility] HospitalLwnwurcVZCZTRFKGM0705-18-53 13:17:00 Test Item Value Reference Range Interpretation Comments Lymphocytes # (test code = Lymphocytes 1.1 1.0-5.5 #) [facility] HospitalPafrgwxTXDQTDFAMR4356-21-98 13:17:00 Test Item Value Reference Range Interpretation Comments Neutrophils # (test code = Neutrophils 6.1 1.5-8.1 #) [facility] HospitalYyjoncjDVZYFPDBRX3671-94-18 13:17:00 Test Item Value Reference Range Interpretation Comments Monocytes (test code = Monocytes) 11.1 2.0-12.0 [facility] HospitalAjvfdlhNPVGIPBMMW7990-89-75 13:17:00 Test Item Value Reference Range Interpretation Comments Eosinophils (test code = 0.9 See_Comment [A utomated message] The Eosinophils) system which ge nerated this result tra nsmitted reference range : <=4.0. The reference r annemarie was not used to int erpret this result as normal/abnormal . [facility] HospitalXshvoegOPSCOQKXLJ8668-32-55 13:17:00 Test Item Value Reference Range Interpretation Comments Basophils (test code = 0.2 See_Comment [Aut omated message] The Basophils) system which ge nerated this result tra nsmitted reference range : <=1.0. The reference r annemarie was not used to int erpret this result as normal/abnormal . [facility] HospitalJtlfwfhUQZFISRAVD5652-83-41 13:17:00 Test Item Value Reference Range Interpretation Comments Segs (test code = Segs) 74.9 45.0-75.0 [facility] HospitalWnvikjjXRIQEVEWBC1593-14-41 13:17:00 Test Item Value Reference Range Interpretation Comments Lymphocytes (test code = Lymphocytes) 12.9 20.0-40.0 [facility] HospitalZrtdnspXYJPVRJDCV2258-04-23 13:17:00 Test Item Value Reference Range Interpretation Comments Salicylate Lvl (test no gt See_Comment [Autom ated message] The code = Salicylate Lvl) syste m which generated this result tra nsmitted reference range : <=30.0. The reference r annemarie was not used to int erpret this result as normal/abnormal . [facility] HospitalAtcefdaXZFBYTHPLI6050-56-92 13:17:00 Test Item Value Reference Range Interpretation Comments Acetaminoph Lvl (test code = 3 10-20 Acetaminoph Lvl) [facility] HospitalCARDIAC UWQYILF4924-35-25 13:17:00 Test Item Value Reference Range Interpretation Comments Total CK (test code = Total CK) 815 12-191 [facility] HospitalRowqtgyCGDFXVJYIEIV7414-40-31 13:17:00 Test Item Value Reference Range Interpretation Comments AGAP (test code = AGAP) 14.8 10.0-20.0 [facility] HospitalWojzjpkUDSMUWUXHAIK7819-94-91 13:17:00 Test Item Value Reference Range Interpretation Comments eGFR (test code = eGFR) 93 [facility] HospitalOubhaxdYZLZAULUHXGP9218-60-16 13:17:00 Test Item Value Reference Range Interpretation Comments Creatinine Lvl (test code = Creatinine 1.07 0.50-1.40 Lvl) [facility] HospitalSktkxicYOMINNHPLGHN2441-30-33 13:17:00 Test Item Value Reference Range Interpretation Comments Sodium Lvl (test code = Sodium Lvl) 135 135-145 [facility] HospitalJjfqhzhOSQBFYVERUPP4357-97-40 13:17:00 Test Item Value Reference Range Interpretation Comments Potassium Lvl (test code = Potassium 3.8 3.5-5.1 Lvl) [facility] HospitalHjofyrwVNUQHCAJBFHR7647-94-63 13:17:00 Test Item Value Reference Range Interpretation Comments Calcium Lvl (test code = Calcium Lvl) 9.3 8.5-10.5 [facility] HospitalWsfcvtdLYMTSFWZWLEU3376-40-98 13:17:00 Test Item Value Reference Range Interpretation Comments CO2 (test code = CO2) 23 24-32 [facility] HospitalLpzxtfaQCUDPCSCDWAW6498-86-53 13:17:00 Test Item Value Reference Range Interpretation Comments Chloride Lvl (test code = Chloride Lvl) 101 95-109 [facility] HospitalQftghkvHZEHEJQROVCL1530-47-18 13:17:00 Test Item Value Reference Range Interpretation Comments Glucose Lvl (test code = Glucose Lvl) 94 70-99 [facility] HospitalOzadgrxGEVNYVHNTPKK0411-92-03 13:17:00 Test Item Value Reference Range Interpretation Comments BUN (test code = BUN) 17 7-22 [facility]QnnutgwEPYKWJXEBK8485-21-08 13:17:00 Test Item Value Reference Range Interpretation Comments MCHC (test code = MCHC) 33.6 32.0-36.0 [facility] HospitalHogzgfxRVESLJTOMF0266-44-18 13:17:00 Test Item Value Reference Range Interpretation Comments RDW (test code = RDW) 14.7 11.5-14.5 [facility] HospitalYbtdvavSBFYCMGFXU3105-72-24 13:17:00 Test Item Value Reference Range Interpretation Comments MCH (test code = MCH) 27.9 pg 27.0-31.0 [facility] HospitalIsswvibYLYWGSOTFE1748-62-51 13:17:00 Test Item Value Reference Range Interpretation Comments MCV (test code = MCV) 83.1 80.0-94.0 [facility] HospitalVstbhteNPHZPFREKI5155-23-18 13:17:00 Test Item Value Reference Range Interpretation Comments MPV (test code = MPV) 9.9 7.4-10.4 [facility] HospitalGvekrhpYRUAYALMIV8206-64-79 13:17:00 Test Item Value Reference Range Interpretation Comments Platelet (test code = Platelet) 165 133-450 [facility] HospitalEnruqzlUWLXIUMNJU5897-35-09 13:17:00 Test Item Value Reference Range Interpretation Comments RBC (test code = RBC) 4.63 4.70-6.10 [facility] HospitalUrhlqeeORURTZRCSA1215-07-50 13:17:00 Test Item Value Reference Range Interpretation Comments Hgb (test code = Hgb) 12.9 14.0-18.0 [facility] HospitalGvypxiqLGNXXSCGFC5034-32-64 13:17:00 Test Item Value Reference Range Interpretation Comments Hct (test code = Hct) 38.4 42.0-54.0 [facility] HospitalRoxdrfpIGFAUKCZON8514-58-24 13:17:00 Test Item Value Reference Range Interpretation Comments WBC (test code = WBC) 8.2 3.7-10.4 [facility] HospitalHjogyrxEJLUOOGDNX3914-08-98 13:17:00 Test Item Value Reference Range Interpretation Comments Monocytes # (test code 0.9 See_Comment [Aut omated message] The = Monocytes #) system which generated this result tra nsmitted reference range : <=0.8. The reference r annemarie was not used to int erpret this result as normal/abnormal . [facility] HospitalVpnpmyuUDDPFFSSWJ9220-26-83 13:17:00 Test Item Value Reference Range Interpretation Comments Eosinophils # (test code 0.1 See_Comment [A utomated message] The = Eosinophils #) system whic h generated this result tra nsmitted reference range : <=0.5. The reference r annemarie was not used to int erpret this result as normal/abnormal . [facility] HospitalEjqwnizIKUNUAANKF5128-84-67 13:17:00 Test Item Value Reference Range Interpretation Comments Lymphocytes # (test code = Lymphocytes 1.1 1.0-5.5 #) [facility] HospitalJrnbkmuRWMDEOUKWP0863-44-80 13:17:00 Test Item Value Reference Range Interpretation Comments Neutrophils # (test code = Neutrophils 6.1 1.5-8.1 #) [facility] HospitalWvatqsySZTZNVTOXW7327-12-02 13:17:00 Test Item Value Reference Range Interpretation Comments Monocytes (test code = Monocytes) 11.1 2.0-12.0 [facility] HospitalPvlwrzmZQBTKRDCRX3435-79-84 13:17:00 Test Item Value Reference Range Interpretation Comments Eosinophils (test code = 0.9 See_Comment [A utomated message] The Eosinophils) system which ge nerated this result tra nsmitted reference range : <=4.0. The reference r annemarie was not used to int erpret this result as normal/abnormal . [facility] HospitalFaapgnwIDGIGEQKNG7467-95-29 13:17:00 Test Item Value Reference Range Interpretation Comments Basophils (test code = 0.2 See_Comment [Aut omated message] The Basophils) system which ge nerated this result tra nsmitted reference range : <=1.0. The reference r annemarie was not used to int erpret this result as normal/abnormal . [facility] HospitalYcdottlNVIEWRTZAD2338-00-48 13:17:00 Test Item Value Reference Range Interpretation Comments Segs (test code = Segs) 74.9 45.0-75.0 [facility] HospitalUyiudnsIBBMJCVQPP5070-06-84 13:17:00 Test Item Value Reference Range Interpretation Comments Lymphocytes (test code = Lymphocytes) 12.9 20.0-40.0 [facility]XgjwtjdJMQVOMUGEL6933-15-71 13:17:00 Test Item Value Reference Range Interpretation Comments Salicylate Lvl (test no gt See_Comment [Autom ated message] The code = Salicylate Lvl) syste m which generated this result tra nsmitted reference range : <=30.0. The reference r annemarie was not used to int erpret this result as normal/abnormal . [facility] HospitalRgxyemwDDGWRKHPJF7857-15-25 13:17:00 Test Item Value Reference Range Interpretation Comments Acetaminoph Lvl (test code = 3 10-20 Acetaminoph Lvl) [facility] HospitalCARDIAC SSMDHYP2647-36-64 13:17:00 Test Item Value Reference Range Interpretation Comments Total CK (test code = Total CK) 815 12-191 [facility] HospitalEqqcpbiSUREBZBZZCEO1803-95-44 13:17:00 Test Item Value Reference Range Interpretation Comments AGAP (test code = AGAP) 14.8 10.0-20.0 [facility] HospitalRbzlyrjVDMUWKBXYLVK1628-42-54 13:17:00 Test Item Value Reference Range Interpretation Comments eGFR (test code = eGFR) 93 [facility] HospitalBrmuiiwNCSCKQETNHFK3061-76-85 13:17:00 Test Item Value Reference Range Interpretation Comments Creatinine Lvl (test code = Creatinine 1.07 0.50-1.40 Lvl) [facility] HospitalPxxpitlIKQEREFAGICT2816-75-39 13:17:00 Test Item Value Reference Range Interpretation Comments Sodium Lvl (test code = Sodium Lvl) 135 135-145 [facility] HospitalIwtqhlsTUOOYXVOEUCQ5751-95-03 13:17:00 Test Item Value Reference Range Interpretation Comments Potassium Lvl (test code = Potassium 3.8 3.5-5.1 Lvl) [facility] HospitalQtkgfxvZCSWWHWPPYUZ9937-91-35 13:17:00 Test Item Value Reference Range Interpretation Comments Calcium Lvl (test code = Calcium Lvl) 9.3 8.5-10.5 [facility] HospitalAvasgbnFIGJMZCMNIBP0040-98-29 13:17:00 Test Item Value Reference Range Interpretation Comments CO2 (test code = CO2) 23 24-32 [facility] HospitalHegccwtSOJPUHNKRAJW9016-13-28 13:17:00 Test Item Value Reference Range Interpretation Comments Chloride Lvl (test code = Chloride Lvl) 101 95-109 [facility] HospitalVfcfftaNGXLTNOSBKUE3622-66-06 13:17:00 Test Item Value Reference Range Interpretation Comments Glucose Lvl (test code = Glucose Lvl) 94 70-99 [facility]IwzuzpwJIOKHGDQOJZM0562-73-06 13:17:00 Test Item Value Reference Range Interpretation Comments BUN (test code = BUN) 17 7-22 [facility] HospitalLhhwaknXYOKRBJWPY1954-74-68 13:17:00 Test Item Value Reference Range Interpretation Comments MCHC (test code = MCHC) 33.6 32.0-36.0 [facility] HospitalVyogqrfEHXRAAARYC4702-58-43 13:17:00 Test Item Value Reference Range Interpretation Comments RDW (test code = RDW) 14.7 11.5-14.5 [facility] HospitalMgnccnvASRFXCTPIX6872-74-81 13:17:00 Test Item Value Reference Range Interpretation Comments MCH (test code = MCH) 27.9 pg 27.0-31.0 [facility] HospitalFupatduDCMZCBRKBH7882-17-19 13:17:00 Test Item Value Reference Range Interpretation Comments MCV (test code = MCV) 83.1 80.0-94.0 [facility] HospitalQtbmgswRVDLKSRORO3068-36-93 13:17:00 Test Item Value Reference Range Interpretation Comments MPV (test code = MPV) 9.9 7.4-10.4 [facility] HospitalOggpuptRRQTKDDIXU9362-84-33 13:17:00 Test Item Value Reference Range Interpretation Comments Platelet (test code = Platelet) 165 133-450 [facility] HospitalTjpsmhfTQKSQGVOSX2676-20-48 13:17:00 Test Item Value Reference Range Interpretation Comments RBC (test code = RBC) 4.63 4.70-6.10 [facility] HospitalSbzunyySSLQQDSABK6067-87-07 13:17:00 Test Item Value Reference Range Interpretation Comments Hgb (test code = Hgb) 12.9 14.0-18.0 [facility] HospitalHqwcliqDTMEDXWXLK6042-09-57 13:17:00 Test Item Value Reference Range Interpretation Comments Hct (test code = Hct) 38.4 42.0-54.0 [facility] HospitalEkjbseiXVTMFYUERX3482-25-31 13:17:00 Test Item Value Reference Range Interpretation Comments WBC (test code = WBC) 8.2 3.7-10.4 [facility] HospitalWlqfprjOXHWSJFMUA2701-16-72 13:17:00 Test Item Value Reference Range Interpretation Comments Monocytes # (test code 0.9 See_Comment [Aut omated message] The = Monocytes #) system which generated this result tra nsmitted reference range : <=0.8. The reference r annemarie was not used to int erpret this result as normal/abnormal . [facility] HospitalScxvamnBWYXDPRTTR1841-06-89 13:17:00 Test Item Value Reference Range Interpretation Comments Eosinophils # (test code 0.1 See_Comment [A utomated message] The = Eosinophils #) system whic h generated this result tra nsmitted reference range : <=0.5. The reference r annemarie was not used to int erpret this result as normal/abnormal . [facility] HospitalXlakfzpPRHDPHLYSF5973-57-90 13:17:00 Test Item Value Reference Range Interpretation Comments Lymphocytes # (test code = Lymphocytes 1.1 1.0-5.5 #) [facility] HospitalMsqllddMGVWWZPUDC8660-52-52 13:17:00 Test Item Value Reference Range Interpretation Comments Neutrophils # (test code = Neutrophils 6.1 1.5-8.1 #) [facility] HospitalFfhdeypXOHLWXXGLS7462-99-45 13:17:00 Test Item Value Reference Range Interpretation Comments Monocytes (test code = Monocytes) 11.1 2.0-12.0 [facility] HospitalBlluifcISLUEHRNSG5032-67-68 13:17:00 Test Item Value Reference Range Interpretation Comments Eosinophils (test code = 0.9 See_Comment [A utomated message] The Eosinophils) system which ge nerated this result tra nsmitted reference range : <=4.0. The reference r annemarie was not used to int erpret this result as normal/abnormal . [facility] HospitalPbhalreJQDPLNCZEH2196-63-49 13:17:00 Test Item Value Reference Range Interpretation Comments Basophils (test code = 0.2 See_Comment [Aut omated message] The Basophils) system which ge nerated this result tra nsmitted reference range : <=1.0. The reference r annemarie was not used to int erpret this result as normal/abnormal . [facility] HospitalFddhkhcMHAOVYEKZN4492-91-46 13:17:00 Test Item Value Reference Range Interpretation Comments Segs (test code = Segs) 74.9 45.0-75.0 [facility] HospitalGavguprGPZCVSOSIK9230-13-03 13:17:00 Test Item Value Reference Range Interpretation Comments Lymphocytes (test code = Lymphocytes) 12.9 20.0-40.0 [place] 29173018-12-19 13:17:00 Test Item Value Reference Range Interpretation Comments Salicylate Lvl (test no gt See_Comment [Autom ated message] The code = Salicylate Lvl) syste m which generated this result tra nsmitted reference range : <=30.0. The reference r annemarie was not used to int erpret this result as normal/abnormal . [facility]MvvtpodZDEBIROVJG5472-16-28 13:17:00 Test Item Value Reference Range Interpretation Comments Acetaminoph Lvl (test code = 3 10-20 Acetaminoph Lvl) [facility] OMCVFQI0441-02-19 13:17:00 Test Item Value Reference Range Interpretation Comments Total CK (test code = Total CK) 815 12-191 [facility] HospitalIhdxchnLHPWUZIWENYH2009-42-86 13:17:00 Test Item Value Reference Range Interpretation Comments AGAP (test code = AGAP) 14.8 10.0-20.0 [facility] [facility]UT9284[facility]40-13 13:17:00 Test Item Value Reference Range Interpretation Comments eGFR (test code = eGFR) 93 [facility]HuopnyiJGQYJXDBUCGM3660-61-97 13:17:00 Test Item Value Reference Range Interpretation Comments Creatinine Lvl (test code = Creatinine 1.07 0.50-1.40 Lvl) [facility] HospitalStnozeqFRVIXPGJUJGP4733-40-88 13:17:00 Test Item Value Reference Range Interpretation Comments Sodium Lvl (test code = Sodium Lvl) 135 135-145 [facility] HospitalXfnpyhxWLDBXHTKYYLC3307-73-15 13:17:00 Test Item Value Reference Range Interpretation Comments Potassium Lvl (test code = Potassium 3.8 3.5-5.1 Lvl) [facility] HospitalYpjprwdKXSVEGBAMPWH7692-06-84 13:17:00 Test Item Value Reference Range Interpretation Comments Calcium Lvl (test code = Calcium Lvl) 9.3 8.5-10.5 [facility] HospitalYcgkgtnGWVLROURGNMR5690-23-37 13:17:00 Test Item Value Reference Range Interpretation Comments CO2 (test code = CO2) 23 24-32 [facility] HospitalApktdrfUFAPUGACGAMC3394-09-94 13:17:00 Test Item Value Reference Range Interpretation Comments Chloride Lvl (test code = Chloride Lvl) 101 95-109 [facility] HospitalCtobdfvNJZUISMTHMCC3066-11-65 13:17:00 Test Item Value Reference Range Interpretation Comments Glucose Lvl (test code = Glucose Lvl) 94 70-99 [facility]HmmnydwPZBOOXQYJZIX4350-24-90 13:17:00 Test Item Value Reference Range Interpretation Comments BUN (test code = BUN) 17 7-22 [facility] HospitalYfqqcljTSBWAXTVSO9940-57-64 13:17:00 Test Item Value Reference Range Interpretation Comments MCHC (test code = MCHC) 33.6 32.0-36.0 [facility] HospitalRalnyjgYAYSADUPTF1733-61-98 13:17:00 Test Item Value Reference Range Interpretation Comments RDW (test code = RDW) 14.7 11.5-14.5 [facility] HospitalQvfpxakTLSQATYCEC7761-69-70 13:17:00 Test Item Value Reference Range Interpretation Comments MCH (test code = MCH) 27.9 pg 27.0-31.0 [facility] HospitalCwbfjoxUNOBMOSABT8049-83-39 13:17:00 Test Item Value Reference Range Interpretation Comments MCV (test code = MCV) 83.1 80.0-94.0 [facility] HospitalPxvohutKNRZODSYZX8420-16-95 13:17:00 Test Item Value Reference Range Interpretation Comments MPV (test code = MPV) 9.9 7.4-10.4 [facility] HospitalYuixylaBIGCCAIHWV6639-41-01 13:17:00 Test Item Value Reference Range Interpretation Comments Platelet (test code = Platelet) 165 133-450 [facility] HospitalKhpfpijITDISZLDTS4169-17-88 13:17:00 Test Item Value Reference Range Interpretation Comments RBC (test code = RBC) 4.63 4.70-6.10 [facility] HospitalXdcbbitOXVCFTNNIC1066-28-16 13:17:00 Test Item Value Reference Range Interpretation Comments Hgb (test code = Hgb) 12.9 14.0-18.0 [facility] HospitalFptapmtGVMWYABILM1042-30-46 13:17:00 Test Item Value Reference Range Interpretation Comments Hct (test code = Hct) 38.4 42.0-54.0 [facility] HospitalPmwvvhtHUPYHOCQAA2720-22-76 13:17:00 Test Item Value Reference Range Interpretation Comments WBC (test code = WBC) 8.2 3.7-10.4 [facility] HospitalFdbukwdVOLPYCAVTY3356-03-76 13:17:00 Test Item Value Reference Range Interpretation Comments Monocytes # (test code 0.9 See_Comment [Aut omated message] The = Monocytes #) system which generated this result tra nsmitted reference range : <=0.8. The reference r annemarie was not used to int erpret this result as normal/abnormal . [facility] HospitalGufbojsZWGGACIHVC3136-20-82 13:17:00 Test Item Value Reference Range Interpretation Comments Eosinophils # (test code 0.1 See_Comment [A utomated message] The = Eosinophils #) system whic h generated this result tra nsmitted reference range : <=0.5. The reference r annemarie was not used to int erpret this result as normal/abnormal . [facility] HospitalYfsprriBHZQIBBJPZ3452-35-30 13:17:00 Test Item Value Reference Range Interpretation Comments Lymphocytes # (test code = Lymphocytes 1.1 1.0-5.5 #) [facility] HospitalAielrajLHXRPIIJOI5059-76-17 13:17:00 Test Item Value Reference Range Interpretation Comments Neutrophils # (test code = Neutrophils 6.1 1.5-8.1 #) [facility] HospitalJmiypzrBMIRWOYJUW4817-99-21 13:17:00 Test Item Value Reference Range Interpretation Comments Monocytes (test code = Monocytes) 11.1 2.0-12.0 [facility] HospitalGdichnjJVNELRQNXP1910-00-58 13:17:00 Test Item Value Reference Range Interpretation Comments Eosinophils (test code = 0.9 See_Comment [A utomated message] The Eosinophils) system which ge nerated this result tra nsmitted reference range : <=4.0. The reference r annemarie was not used to int erpret this result as normal/abnormal . [facility] HospitalGcbnvgeHZMJEVXGHQ1773-09-84 13:17:00 Test Item Value Reference Range Interpretation Comments Basophils (test code = 0.2 See_Comment [Aut omated message] The Basophils) system which ge nerated this result tra nsmitted reference range : <=1.0. The reference r annemarie was not used to int erpret this result as normal/abnormal . [facility] HospitalHuzyewmDMBQCGQTMX8976-37-49 13:17:00 Test Item Value Reference Range Interpretation Comments Segs (test code = Segs) 74.9 45.0-75.0 [facility] HospitalMltwqhvZIKHSGHCLI5770-48-31 13:17:00 Test Item Value Reference Range Interpretation Comments Lymphocytes (test code = Lymphocytes) 12.9 20.0-40.0 [facility]AjydhrzESHTDIHHGF8934-67-05 13:17:00 Test Item Value Reference Range Interpretation Comments Salicylate Lvl (test no gt See_Comment [Autom ated message] The code = Salicylate Lvl) syste m which generated this result tra nsmitted reference range : <=30.0. The reference r annemarie was not used to int erpret this result as normal/abnormal . [facility]DcvgvfaINNIVCHXNW8273-62-54 13:17:00 Test Item Value Reference Range Interpretation Comments Acetaminoph Lvl (test code = 3 10-20 Ac[facility]oph Lvl) [facility] DLESCRA9124-13-18 13:17:00 Test Item Value Reference Range Interpretation Comments Total CK (test code = Total CK) 815 12-191 [facility] HospitalSezlfedHBYOLOUVOWPS0018-48-16 13:17:00 Test Item Value Reference Range Interpretation Comments AGAP (test code = AGAP) 14.8 10.0-20.0 [facility] HospitalZfriforNXZGRTTTCTIC6586-57-14 13:17:00 Test Item Value Reference Range Interpretation Comments eGFR (test code = eGFR) 93 [facility] HospitalIxxlueaOGFEIPRYAKJO8820-25-31 13:17:00 Test Item Value Reference Range Interpretation Comments Creatinine Lvl (test code = Creatinine 1.07 0.50-1.40 Lvl) [facility] HospitalQgqdgctJAIZPQTOKWQZ1675-04-43 13:17:00 Test Item Value Reference Range Interpretation Comments Sodium Lvl (test code = Sodium Lvl) 135 135-145 [facility] HospitalFnggeslSDSHRBLAKCNL7406-52-54 13:17:00 Test Item Value Reference Range Interpretation Comments Potassium Lvl (test code = Potassium 3.8 3.5-5.1 Lvl) [facility] HospitalIszlgooJKEFXJPQWNGG5392-34-63 13:17:00 Test Item Value Reference Range Interpretation Comments Calcium Lvl (test code = Calcium Lvl) 9.3 8.5-10.5 [facility] HospitalJbvxqzwHCCPUEIUNQAN8704-39-73 13:17:00 Test Item Value Reference Range Interpretation Comments CO2 (test code = CO2) 23 24-32 [facility] HospitalIefiwtbBOGLWMMQYOQG5994-54-20 13:17:00 Test Item Value Reference Range Interpretation Comments Chloride Lvl (test code = Chloride Lvl) 101 95-109 [facility] HospitalPqguhfwBQOIZPXAUJWB5317-96-20 13:17:00 Test Item Value Reference Range Interpretation Comments Glucose Lvl (test code = Glucose Lvl) 94 70-99 [facility] HospitalYvxckjsHLGSUFNZSLJD5636-92-49 13:17:00 Test Item Value Reference Range Interpretation Comments BUN (test code = BUN) 17 7-22 [facility] HospitalCgtpobdUXKURZSEKU5708-88-15 13:17:00 Test Item Value Reference Range Interpretation Comments MCHC (test code = MCHC) 33.6 32.0-36.0 [facility] HospitalKtiumfkZMFMXJVYLM5291-25-52 13:17:00 Test Item Value Reference Range Interpretation Comments RDW (test code = RDW) 14.7 11.5-14.5 [facility] HospitalNuuriziADKLCAYGNH6445-19-40 13:17:00 Test Item Value Reference Range Interpretation Comments MCH (test code = MCH) 27.9 pg 27.0-31.0 [facility] HospitalOicpaajYVRGALUDVE8462-63-51 13:17:00 Test Item Value Reference Range Interpretation Comments MCV (test code = MCV) 83.1 80.0-94.0 [facility] HospitalWjijdjyMLRFYYBCAR0105-63-98 13:17:00 Test Item Value Reference Range Interpretation Comments MPV (test code = MPV) 9.9 7.4-10.4 [facility] HospitalAokjghqPQRPTVOQDA2115-50-89 13:17:00 Test Item Value Reference Range Interpretation Comments Platelet (test code = Platelet) 165 133-450 [facility] HospitalCiaobcwUSIPMZKMYH1305-77-73 13:17:00 Test Item Value Reference Range Interpretation Comments RBC (test code = RBC) 4.63 4.70-6.10 [facility] HospitalIiwgeicLDIMUJWSEZ8648-80-83 13:17:00 Test Item Value Reference Range Interpretation Comments Hgb (test code = Hgb) 12.9 14.0-18.0 [facility] HospitalSnqjgodSRFAGQTYFG9653-36-74 13:17:00 Test Item Value Reference Range Interpretation Comments Hct (test code = Hct) 38.4 42.0-54.0 [facility] HospitalGalazdtNROGJCLZRO0791-65-17 13:17:00 Test Item Value Reference Range Interpretation Comments WBC (test code = WBC) 8.2 3.7-10.4 [facility] HospitalOrwwdxkDHVMNBASEO1584-16-89 13:17:00 Test Item Value Reference Range Interpretation Comments Monocytes # (test code 0.9 See_Comment [Aut omated message] The = Monocytes #) system which generated this result tra nsmitted reference range : <=0.8. The reference r annemarie was not used to int erpret this result as normal/abnormal . [facility] HospitalEonvayyVJCCWPAOFW4238-43-15 13:17:00 Test Item Value Reference Range Interpretation Comments Eosinophils # (test code 0.1 See_Comment [A utomated message] The = Eosinophils #) system psychiatric h generated this result tra nsmitted reference range : <=0.5. The reference r annemarie was not used to int erpret this result as normal/abnormal . [facility] HospitalIkqqjknADSNLLYKAC8337-32-05 13:17:00 Test Item Value Reference Range Interpretation Comments Lymphocytes # (test code = Lymphocytes 1.1 1.0-5.5 #) [facility] HospitalOpplbviKGQEDPVYOQ0421-22-32 13:17:00 Test Item Value Reference Range Interpretation Comments Neutrophils # (test code = Neutrophils 6.1 1.5-8.1 #) [facility] HospitalPmxqgqbONTDZTKJRH4655-83-00 13:17:00 Test Item Value Reference Range Interpretation Comments Monocytes (test code = Monocytes) 11.1 2.0-12.0 [facility] HospitalCiejjucAUPRPRWYHF5308-87-84 13:17:00 Test Item Value Reference Range Interpretation Comments Eosinophils (test code = 0.9 See_Comment [A utomated message] The Eosinophils) system which ge nerated this result tra nsmitted reference range : <=4.0. The reference r annemarie was not used to int erpret this result as normal/abnormal . [facility] HospitalPlgrbzuMDWURZZZKY8423-50-39 13:17:00 Test Item Value Reference Range Interpretation Comments Basophils (test code = 0.2 See_Comment [Aut omated message] The Basophils) system which ge nerated this result tra nsmitted reference range : <=1.0. The reference r annemarie was not used to int erpret this result as normal/abnormal . [facility] HospitalHltqripCRZYRAZVHM2194-34-95 13:17:00 Test Item Value Reference Range Interpretation Comments Segs (test code = Segs) 74.9 45.0-75.0 [facility] HospitalLlmwkazFAODKBMRGJ9551-53-76 13:17:00 Test Item Value Reference Range Interpretation Comments Lymphocytes (test code = Lymphocytes) 12.9 20.0-40.0 [facility] CampusBmlobzsRTNPXQSAEX6707-42-22 13:17:00 Test Item Value Reference Range Interpretation Comments Salicylate Lvl (test no gt See_Comment [Autom ated message] The code = Salicylate Lvl) syste m which generated this result tra nsmitted reference range : <=30.0. The reference r annemarie was not used to int erpret this result as normal/abnormal . [facility] CenterSoolgwnCYCIDCSSZD8924-19-33 13:17:00 Test Item Value Reference Range Interpretation Comments Acetaminoph Lvl (test code = 3 10-20 Acetaminoph Lvl) [facility] IHUODWP4793-37-09 13:17:00 Test Item Value Reference Range Interpretation Comments Total CK (test code = Total CK) 815 12-191 [facility] HospitalFwlcdagIDLZUJPRMCMA6329-02-33 13:17:00 Test Item Value Reference Range Interpretation Comments AGAP (test code = AGAP) 14.8 10.0-20.0 [facility] HospitalUwziglfGXOLTDTLTMCF5686-74-09 13:17:00 Test Item Value Reference Range Interpretation Comments eGFR (test code = eGFR) 93 [facility] HospitalPdvbvtnMEGOPGAZMESR6879-98-92 13:17:00 Test Item Value Reference Range Interpretation Comments Creatinine Lvl (test code = Creatinine 1.07 0.50-1.40 Lvl) [facility] HospitalBjkutkkKSZRKZOIXEIR6047-44-30 13:17:00 Test Item Value Reference Range Interpretation Comments Sodium Lvl (test code = Sodium Lvl) 135 135-145 [facility] HospitalYjbedywDNXEPCDFUDXR6682-93-98 13:17:00 Test Item Value Reference Range Interpretation Comments Potassium Lvl (test code = Potassium 3.8 3.5-5.1 Lvl) [facility] HospitalBcrzfcgBDJBPCWDTUEN5890-95-86 13:17:00 Test Item Value Reference Range Interpretation Comments Calcium Lvl (test code = Calcium Lvl) 9.3 8.5-10.5 [facility] HospitalWbttrwkXEFCBMGGEFWY5264-51-75 13:17:00 Test Item Value Reference Range Interpretation Comments CO2 (test code = CO2) 23 24-32 [facility] HospitalEkyvjixRYFNFZNKYZJW2985-27-81 13:17:00 Test Item Value Reference Range Interpretation Comments Chloride Lvl (test code = Chloride Lvl) 101 95-109 [facility] HospitalDdglunpOOLRVTPGNFGD6869-65-37 13:17:00 Test Item Value Reference Range Interpretation Comments Glucose Lvl (test code = Glucose Lvl) 94 70-99 [facility] HospitalCflzuyxTJFSGORNSTXV1669-67-35 13:17:00 Test Item Value Reference Range Interpretation Comments BUN (test code = BUN) 17 7-22 [facility] HospitalRffwcmlBLTPJMCJMM9145-93-28 13:17:00 Test Item Value Reference Range Interpretation Comments MCHC (test code = MCHC) 33.6 32.0-36.0 [facility] HospitalVbxgnsyIIJOVPZDAP6139-93-79 13:17:00 Test Item Value Reference Range Interpretation Comments RDW (test code = RDW) 14.7 11.5-14.5 [facility] HospitalOikiwfcLLSRCJPRPS3813-09-82 13:17:00 Test Item Value Reference Range Interpretation Comments MCH (test code = MCH) 27.9 pg 27.0-31.0 [facility] HospitalLwksiapVVTICCTYJB9839-38-23 13:17:00 Test Item Value Reference Range Interpretation Comments MCV (test code = MCV) 83.1 80.0-94.0 [facility] HospitalUkaegnvRWLYQLUBKT9694-59-72 13:17:00 Test Item Value Reference Range Interpretation Comments MPV (test code = MPV) 9.9 7.4-10.4 [facility] HospitalJcbavxlGHLKVEEMLU8598-46-99 13:17:00 Test Item Value Reference Range Interpretation Comments Platelet (test code = Platelet) 165 133-450 [facility] HospitalGhqkxzhGJJUIQXPVV3897-97-64 13:17:00 Test Item Value Reference Range Interpretation Comments RBC (test code = RBC) 4.63 4.70-6.10 [facility] HospitalIprjkbwDRVHEPUWDX3416-95-28 13:17:00 Test Item Value Reference Range Interpretation Comments Hgb (test code = Hgb) 12.9 14.0-18.0 [facility] HospitalDhrkhrpVLAGPIMTSS4279-15-36 13:17:00 Test Item Value Reference Range Interpretation Comments Hct (test code = Hct) 38.4 42.0-54.0 [facility] HospitalVnbkkqkOZXAXEVJIG2611-96-85 13:17:00 Test Item Value Reference Range Interpretation Comments WBC (test code = WBC) 8.2 3.7-10.4 [facility] HospitalVopeuftAOGEUBBCMK0186-84-55 13:17:00 Test Item Value Reference Range Interpretation Comments Monocytes # (test code 0.9 See_Comment [Aut omated message] The = Monocytes #) system which generated this result tra nsmitted reference range : <=0.8. The reference r annemarie was not used to int erpret this result as normal/abnormal . [facility] HospitalCeaxfbzGSZMVTNMBL2100-93-36 13:17:00 Test Item Value Reference Range Interpretation Comments Eosinophils # (test code 0.1 See_Comment [A utomated message] The = Eosinophils #) system whic h generated this result tra nsmitted reference range : <=0.5. The reference r annemarie was not used to int erpret this result as normal/abnormal . [facility] HospitalExphtmhVPEVIRZZCL2588-93-34 13:17:00 Test Item Value Reference Range Interpretation Comments Lymphocytes # (test code = Lymphocytes 1.1 1.0-5.5 #) [facility] HospitalAaocvttKYZDDTPNJP0291-42-10 13:17:00 Test Item Value Reference Range Interpretation Comments Neutrophils # (test code = Neutrophils 6.1 1.5-8.1 #) [facility] HospitalGhygippGSXAHTWLYT3194-70-84 13:17:00 Test Item Value Reference Range Interpretation Comments Monocytes (test code = Monocytes) 11.1 2.0-12.0 [facility] HospitalMrhpdliUAVEYXMNFU6142-96-05 13:17:00 Test Item Value Reference Range Interpretation Comments Eosinophils (test code = 0.9 See_Comment [A utomated message] The Eosinophils) system which ge nerated this result tra nsmitted reference range : <=4.0. The reference r annemarie was not used to int erpret this result as normal/abnormal . [facility] HospitalXuufpatIPVUIZUYLX1375-11-18 13:17:00 Test Item Value Reference Range Interpretation Comments Basophils (test code = 0.2 See_Comment [Aut omated message] The Basophils) system which ge nerated this result tra nsmitted reference range : <=1.0. The reference r annemarie was not used to int erpret this result as normal/abnormal . [facility] HospitalNapcbgzDAMZRWVPKW0121-94-87 13:17:00 Test Item Value Reference Range Interpretation Comments Segs (test code = Segs) 74.9 45.0-75.0 [facility] HospitalWggnrrqUSNQUTNBPO7571-47-03 13:17:00 Test Item Value Reference Range Interpretation Comments Lymphocytes (test code = Lymphocytes) 12.9 20.0-40.0 [facility] CampusLmbrbaySKBYUEEDOP5388-56-50 13:17:00 Test Item Value Reference Range Interpretation Comments Salicylate Lvl (test no gt See_Comment [Autom ated message] The code = Salicylate Lvl) syste m which generated this result tra nsmitted reference range : <=30.0. The reference r annemarie was not used to int erpret this result as normal/abnormal . [facility] CenterPfcbwtxJIWARGPVCU9351-39-43 13:17:00 Test Item Value Reference Range Interpretation Comments Acetaminoph Lvl (test code = 3 10-20 Acetaminoph Lvl) [facility] RFLEREA8618-18-13 13:17:00 Test Item Value Reference Range Interpretation Comments Total CK (test code = Total CK) 815 12-191 [facility] HospitalIkekshrLDWVXHQUYAIX8533-24-41 13:17:00 Test Item Value Reference Range Interpretation Comments AGAP (test code = AGAP) 14.8 10.0-20.0 [facility] HospitalXlbhpgdIHMQVWYBYHMN4519-62-10 13:17:00 Test Item Value Reference Range Interpretation Comments eGFR (test code = eGFR) 93 [facility] HospitalIzpusvqPBNHHFDNOWGM7918-67-48 13:17:00 Test Item Value Reference Range Interpretation Comments Creatinine Lvl (test code = Creatinine 1.07 0.50-1.40 Lvl) [facility] HospitalPnqkkncSUCUHKFEXYPY2639-93-60 13:17:00 Test Item Value Reference Range Interpretation Comments Sodium Lvl (test code = Sodium Lvl) 135 135-145 [facility]VmdlvhiRSEJMUYVHVIM6321-65-06 13:17:00 Test Item Value Reference Range Interpretation Comments Potassium Lvl (test code = Potassium 3.8 3.5-5.1 Lvl) [facility] HospitalSgxvzhlNCAVTDBDFZWU7242-61-71 13:17:00 Test Item Value Reference Range Interpretation Comments Calcium Lvl (test code = Calcium Lvl) 9.3 8.5-10.5 [facility]GtcflhoSSYJBVYWGHNK9262-76-39 13:17:00 Test Item Value Reference Range Interpretation Comments CO2 (test code = CO2) 23 24-32 [facility] HospitalQuuxmrpTSWNSRZRSHXJ6709-91-22 13:17:00 Test Item Value Reference Range Interpretation Comments Chloride Lvl (test code = Chloride Lvl) 101 95-109 [facility] HospitalHaofdkfKNKCDBMZJOVW9620-45-74 13:17:00 Test Item Value Reference Range Interpretation Comments Glucose Lvl (test code = Glucose Lvl) 94 70-99 [facility] HospitalUjifymlJUIAQDDHNMGC7515-47-12 13:17:00 Test Item Value Reference Range Interpretation Comments BUN (test code = BUN) 17 7-22 [facility] HospitalGluizlpLMENHYALAE2324-96-06 13:17:00 Test Item Value Reference Range Interpretation Comments MCHC (test code = MCHC) 33.6 32.0-36.0 [facility] HospitalCbyuznwEWCTUTBAHL6311-16-93 13:17:00 Test Item Value Reference Range Interpretation Comments RDW (test code = RDW) 14.7 11.5-14.5 [facility] HospitalFkrwnodENAEFGNMMU0593-21-79 13:17:00 Test Item Value Reference Range Interpretation Comments MCH (test code = MCH) 27.9 pg 27.0-31.0 [facility] HospitalPcjbgpiPGZGHICNAR1034-03-07 13:17:00 Test Item Value Reference Range Interpretation Comments MCV (test code = MCV) 83.1 80.0-94.0 [facility] HospitalEonujekNXPTKERKEN0258-11-24 13:17:00 Test Item Value Reference Range Interpretation Comments MPV (test code = MPV) 9.9 7.4-10.4 [facility] HospitalDvlsriqKGNSHCMKPP6917-53-47 13:17:00 Test Item Value Reference Range Interpretation Comments Platelet (test code = Platelet) 165 133-450 [facility] HospitalRzfpgvuZEPBCNEQEG7817-23-51 13:17:00 Test Item Value Reference Range Interpretation Comments RBC (test code = RBC) 4.63 4.70-6.10 [facility] HospitalYffdimcYZPLOJWJJR6350-12-38 13:17:00 Test Item Value Reference Range Interpretation Comments Hgb (test code = Hgb) 12.9 14.0-18.0 [facility] HospitalBvhqsktTROUIZKINS9183-68-36 13:17:00 Test Item Value Reference Range Interpretation Comments Hct (test code = Hct) 38.4 42.0-54.0 [facility] HospitalHstnjvxVYSWELLYVY8289-53-44 13:17:00 Test Item Value Reference Range Interpretation Comments WBC (test code = WBC) 8.2 3.7-10.4 [facility] HospitalZwrbrftVLTKFIRYOC8056-47-28 13:17:00 Test Item Value Reference Range Interpretation Comments Monocytes # (test code 0.9 See_Comment [Aut omated message] The = Monocytes #) system which generated this result tra nsmitted reference range : <=0.8. The reference r annemarie was not used to int erpret this result as normal/abnormal . [facility] HospitalQlmdfoqVHZKVUIUER5258-80-61 13:17:00 Test Item Value Reference Range Interpretation Comments Eosinophils # (test code 0.1 See_Comment [A utomated message] The = Eosinophils #) system whic h generated this result tra nsmitted reference range : <=0.5. The reference r annemarie was not used to int erpret this result as normal/abnormal . [facility] HospitalZymrorvWFYDNOUKVK6946-03-25 13:17:00 Test Item Value Reference Range Interpretation Comments Lymphocytes # (test code = Lymphocytes 1.1 1.0-5.5 #) [facility] HospitalTxzytiuUFHRDJZYXH4227-14-53 13:17:00 Test Item Value Reference Range Interpretation Comments Neutrophils # (test code = Neutrophils 6.1 1.5-8.1 #) [facility] HospitalCztdcjsIWBJVFEAYO1961-20-95 13:17:00 Test Item Value Reference Range Interpretation Comments Monocytes (test code = Monocytes) 11.1 2.0-12.0 [facility] HospitalPspwgrsYFRYFSNCWV3093-50-99 13:17:00 Test Item Value Reference Range Interpretation Comments Eosinophils (test code = 0.9 See_Comment [A utomated message] The Eosinophils) system which ge nerated this result tra nsmitted reference range : <=4.0. The reference r annemarie was not used to int erpret this result as normal/abnormal . [facility] [facility]ivN[facility]QU[facility]USH2323-78-57 13:17:00 Test Item Value Reference Range Interpretation Comments Basophils (test code = 0.2 See_Comment [Aut omated message] The Basophils) system which ge nerated this result tra nsmitted reference range : <=1.0. The reference r annemarie was not used to int erpret this result as normal/abnormal . [facility] HospitalSnlimfwNBMLIIVGJW3382-97-75 13:17:00 Test Item Value Reference Range Interpretation Comments Segs (test code = Segs) 74.9 45.0-75.0 [facility] HospitalWhulmomTUENVFUZUD2488-91-60 13:17:00 Test Item Value Reference Range Interpretation Comments Lymphocytes (test code = Lymphocytes) 12.9 20.0-40.0 [facility]RaaowsqCUVGODQRFZ4327-68-77 13:17:00 Test Item Value Reference Range Interpretation Comments Salicylate Lvl (test no gt See_Comment [Autom ated message] The code = Salicylate Lvl) syste m which generated this result tra nsmitted reference range : <=30.0. The reference r annemarie was not used to int erpret this result as normal/abnormal . [facility] HospitalXdoqzheNUFAOWNSMQ1059-88-76 13:17:00 Test Item Value Reference Range Interpretation Comments Acetaminoph Lvl (test code = 3 10-20 Acetaminoph Lvl) [facility] HospitalSpendSmart Payments CompanyCARLocomizerAC DVUWXFV8868-87-68 13:17:00 Test Item Value Reference Range Interpretation Comments Total CK (test code = Total CK) 815 12-191 [facility] HospitalJqwmckdLBJEWPDFYOVN4814-30-82 13:17:00 Test Item Value Reference Range Interpretation Comments AGAP (test code = AGAP) 14.8 10.0-20.0 [facility] HospitalZbbozotXHYEKYQRIIYZ2172-53-69 13:17:00 Test Item Value Reference Range Interpretation Comments eGFR (test code = eGFR) 93 [facility] HospitalLivhygpBJZQHENQBDQX6629-44-55 13:17:00 Test Item Value Reference Range Interpretation Comments Creatinine Lvl (test code = Creatinine 1.07 0.50-1.40 Lvl) [facility] HospitalQuant the News JOOVALA8199-29-88 10:11:00 Test Item Value Reference Range Interpretation Comments Troponin-I (test code no gt See_Comment [Auto mated message] The = Troponin-I) system which g enerated this result transmit abdelrahman reference range : <=0.40. The reference r annemarie was not used to interpr et this result as gurpreet l/abnormal. [facility] [employer]ache [id number] 10:11:00 Test Item Value Reference Range Interpretation Comments Phosphorus (test code = Phosphorus) 3.7 2.5-4.5 [facility] UrbsterCHEM [id number] 10:11:00 Test Item Value Reference Range Interpretation Comments Magnesium Lvl (test code = Magnesium 2.1 1.8-2.4 Lvl) [facility] RbwsdmuFYMBHBRJIQSX3987-28-28 10:11:00 Test Item Value Reference Range Interpretation Comments AGAP (test code = AGAP) 11.0 10.0-20.0 [facility] HospitalGcbelcwCTLRLTCXFGLU7466-04-19 10:11:00 Test Item Value Reference Range Interpretation Comments Creatinine Lvl (test code = Creatinine 0.90 0.50-1.40 Lvl) [facility] HospitalKgxyllkMRNXQXBZTKDC1294-14-41 10:11:00 Test Item Value Reference Range Interpretation Comments eGFR (test code = eGFR) 114 [facility] HospitalAtzgvhgKIMLDKLHBPDY1767-24-53 10:11:00 Test Item Value Reference Range Interpretation Comments Calcium Lvl (test code = Calcium Lvl) 8.2 8.5-10.5 [facility] HospitalUbovqzqWYZQFVCWAHWX1344-54-90 10:11:00 Test Item Value Reference Range Interpretation Comments CO2 (test code = CO2) 25 24-32 [facility] HospitalHecyyqqJCCMUWNGZBWC7759-65-97 10:11:00 Test Item Value Reference Range Interpretation Comments Chloride Lvl (test code = Chloride Lvl) 108 95-109 [facility] HospitalFzgrsvaKUROAEKAMZPM0080-58-85 10:11:00 Test Item Value Reference Range Interpretation Comments Potassium Lvl (test code = Potassium 4.0 3.5-5.1 Lvl) [facility] HospitalRnaapbhNIMFJHMYKGVC0012-10-23 10:11:00 Test Item Value Reference Range Interpretation Comments Sodium Lvl (test code = Sodium Lvl) 140 135-145 [facility] HospitalPyqtgfeNCZWMKXTOTKR2108-09-82 10:11:00 Test Item Value Reference Range Interpretation Comments BUN (test code = BUN) 11 7-22 [facility] HospitalOdlkbupVCEVRIENYZZR3066-33-85 10:11:00 Test Item Value Reference Range Interpretation Comments Glucose Lvl (test code = Glucose Lvl) 85 70-99 [facility] HospitalVgtaqdhYAAOJSDYNH6166-87-89 10:11:00 Test Item Value Reference Range Interpretation Comments MCH (test code = MCH) 27.9 pg 27.0-31.0 [facility] HospitalZwcsdenOTCABNVXEE2953-74-88 10:11:00 Test Item Value Reference Range Interpretation Comments MCHC (test code = MCHC) 33.5 32.0-36.0 [facility] HospitalQemggtxXAQVWWCONS0190-55-13 10:11:00 Test Item Value Reference Range Interpretation Comments Hct (test code = Hct) 36.7 42.0-54.0 [facility] HospitalJbvljgbVEQSTXYTKK2333-95-55 10:11:00 Test Item Value Reference Range Interpretation Comments MCV (test code = MCV) 83.1 80.0-94.0 [facility] HospitalRfcwwhvGYEDTQJPDI9476-10-86 10:11:00 Test Item Value Reference Range Interpretation Comments RBC (test code = RBC) 4.42 4.70-6.10 [facility] HospitalIllnybaRMYGDRCPVO7733-37-27 10:11:00 Test Item Value Reference Range Interpretation Comments Hgb (test code = Hgb) 12.3 14.0-18.0 [facility] HospitalVzwdhuhJGLNCQQIJU6239-50-06 10:11:00 Test Item Value Reference Range Interpretation Comments WBC (test code = WBC) 8.5 3.7-10.4 [facility] HospitalKjwkzomNXAOFOAXAI6926-21-48 10:11:00 Test Item Value Reference Range Interpretation Comments MPV (test code = MPV) 9.5 7.4-10.4 [facility] HospitalCyjmefpIYOONEFNWG8161-10-97 10:11:00 Test Item Value Reference Range Interpretation Comments RDW (test code = RDW) 14.4 11.5-14.5 [facility] HospitalDgsnqzyPGLBMNKCYV1212-74-75 10:11:00 Test Item Value Reference Range Interpretation Comments Platelet (test code = Platelet) 164 133-450 [facility] HospitalWbwmkzqOBOFAHYBEK6774-53-38 10:11:00 Test Item Value Reference Range Interpretation Comments Lymphocytes # (test code = Lymphocytes 1.2 1.0-5.5 #) [facility] HospitalJcicfarAYAOXMHQJW4527-03-25 10:11:00 Test Item Value Reference Range Interpretation Comments Monocytes # (test code 0.6 See_Comment [Aut omated message] The = Monocytes #) system which generated this result tra nsmitted reference range : <=0.8. The reference r annemarie was not used to int erpret this result as normal/abnormal . [facility] HospitalXgcypbjTJNFLNBDAG8662-23-03 10:11:00 Test Item Value Reference Range Interpretation Comments Eosinophils # (test code 0.2 See_Comment [A utomated message] The = Eosinophils #) system whic h generated this result tra nsmitted reference range : <=0.5. The reference r annemarie was not used to int erpret this result as normal/abnormal . [facility] HospitalHqfgoxdEEZVTTZYIG7717-25-86 10:11:00 Test Item Value Reference Range Interpretation Comments Basophils # (test code 0.0 See_Comment [Aut omated message] The = Basophils #) system which generated this result tra nsmitted reference range : <=0.2. The reference r annemarie was not used to int erpret this result as normal/abnormal . [facility] RegionHquzelpITHBUBKDAE1276-85-43 10:11:00 Test Item Value Reference Range Interpretation Comments Eosinophils (test code = 2.3 See_Comment [A utomated message] The Eosinophils) system which ge nerated this result tra nsmitted reference range : <=4.0. The reference r annemarie was not used to int erpret this result as normal/abnormal . [facility] HospitalBjulkosCRACTCWTWX5366-25-33 10:11:00 Test Item Value Reference Range Interpretation Comments Basophils (test code = 0.3 See_Comment [Aut omated message] The Basophils) system which ge nerated this result tra nsmitted reference range : <=1.0. The reference r annemarie was not used to int erpret this result as normal/abnormal . [facility] RegionNctizojGTEDEZNWHO7905-47-32 10:11:00 Test Item Value Reference Range Interpretation Comments Neutrophils # (test code = Neutrophils 6.5 1.5-8.1 #) [facility] RegionPcgaytxXDHBVGRNMD2515-57-22 10:11:00 Test Item Value Reference Range Interpretation Comments Lymphocytes (test code = Lymphocytes) 14.5 20.0-40.0 [facility] RegionXcigqtoKNAAEQARBH2098-08-32 10:11:00 Test Item Value Reference Range Interpretation Comments Monocytes (test code = Monocytes) 6.7 2.0-12.0 [facility] RegionVefvtpbPFLDAGBCTL7178-37-55 10:11:00 Test Item Value Reference Range Interpretation Comments Segs (test code = Segs) 76.2 45.0-75.0 [facility] HospitalannPARATHYROID CTIBLFD1741-19-71 10:11:00 Test Item Value Reference Range Interpretation Comments Ca Norm WB (test code = Ca Norm WB) 1.13 1.05-1.25 [facility] HospitalannPARATHYROID BZAAMNI7449-31-77 10:11:00 Test Item Value Reference Range Interpretation Comments Ca Ion WB (test code = Ca Ion WB) 1.17 1.05-1.25 [facility] HospitalannCARDIAC PRKNSNJ5383-70-27 10:11:00 Test Item Value Reference Range Interpretation Comments Troponin-I (test code no gt See_Comment [Auto mated message] The = Troponin-I) system which g enerated this result transmit abdelrahman reference range : <=0.40. The reference r annemarie was not used to interpr et this result as gurpreet l/abnormal. [facility]CHE[facility] XSZKI7559-87-19 10:11:00 Test Item Value Reference Range Interpretation Comments Phosphorus (test code = Phosphorus) 3.7 2.5-4.5 [facility] HospitalCHEM YTSOW1353-00-73 10:11:00 Test Item Value Reference Range Interpretation Comments Magnesium Lvl (test code = Magnesium 2.1 1.8-2.4 Lvl) [facility] HospitalClfaggdIRFHCBTHHPDW5502-18-27 10:11:00 Test Item Value Reference Range Interpretation Comments AGAP (test code = AGAP) 11.0 10.0-20.0 [facility]EzkkjysMFTCMSOSIDTZ8310-85-98 10:11:00 Test Item Value Reference Range Interpretation Comments Creatinine Lvl (test code = Creatinine 0.90 0.50-1.40 Lvl) [facility] HospitalGlemrcrZWSSIXQJPQTJ9133-95-46 10:11:00 Test Item Value Reference Range Interpretation Comments eGFR (test code = eGFR) 114 [facility] HealthZsnszsqMRYLOLDOTJTD3942-94-33 10:11:00 Test Item Value Reference Range Interpretation Comments Calcium Lvl (test code = Calcium Lvl) 8.2 8.5-10.5 [facility] HospitalJhoyjsxYULZZZOCEWXX5848-95-33 10:11:00 Test Item Value Reference Range Interpretation Comments CO2 (test code = CO2) 25 24-32 [facility] HospitalPeitlxzDIEBXEUZVOXU2752-38-76 10:11:00 Test Item Value Reference Range Interpretation Comments Chloride Lvl (test code = Chloride Lvl) 108 95-109 [facility] HospitalRkctpkqWIRNIXGLQGEO3413-47-84 10:11:00 Test Item Value Reference Range Interpretation Comments Potassium Lvl (test code = Potassium 4.0 3.5-5.1 Lvl) [facility] HospitalOjcpgghFHJEMBAMQUSC3928-15-28 10:11:00 Test Item Value Reference Range Interpretation Comments Sodium Lvl (test code = Sodium Lvl) 140 135-145 [facility] HealthNueqijrFAZCMEORNGUF3522-22-76 10:11:00 Test Item Value Reference Range Interpretation Comments BUN (test code = BUN) 11 7-22 [facility] HospitalOotrletOICRNDMZJNST4315-30-47 10:11:00 Test Item Value Reference Range Interpretation Comments Glucose Lvl (test code = Glucose Lvl) 85 70-99 [facility] HospitalJlayotjXWRYEFSILF2679-70-52 10:11:00 Test Item Value Reference Range Interpretation Comments MCH (test code = MCH) 27.9 pg 27.0-31.0 [facility] HospitalBpjqodjXKUFGMPXHO5048-73-42 10:11:00 Test Item Value Reference Range Interpretation Comments MCHC (test code = MCHC) 33.5 32.0-36.0 [facility] HospitalGbhgrigDQUHRRLCWD2549-20-12 10:11:00 Test Item Value Reference Range Interpretation Comments Hct (test code = Hct) 36.7 42.0-54.0 [facility] HospitalMiztmawKHIULHOEUJ2480-46-62 10:11:00 Test Item Value Reference Range Interpretation Comments MCV (test code = MCV) 83.1 80.0-94.0 [facility] HospitalAerznlmWJLOXLZSGB9656-60-14 10:11:00 Test Item Value Reference Range Interpretation Comments RBC (test code = RBC) 4.42 4.70-6.10 [facility] HospitalUczawlcACMULPGLWE7469-40-39 10:11:00 Test Item Value Reference Range Interpretation Comments Hgb (test code = Hgb) 12.3 14.0-18.0 [facility] HospitalOvqsvmmOPKBVMWZCQ2129-25-86 10:11:00 Test Item Value Reference Range Interpretation Comments WBC (test code = WBC) 8.5 3.7-10.4 [facility] HospitalEedpkscXGCAUCSZIK7514-96-61 10:11:00 Test Item Value Reference Range Interpretation Comments MPV (test code = MPV) 9.5 7.4-10.4 [facility] HospitalGxuttbhUJWVAMBJQA5267-94-46 10:11:00 Test Item Value Reference Range Interpretation Comments RDW (test code = RDW) 14.4 11.5-14.5 [facility] HospitalNgowrtqKLLOTCULUR6404-47-04 10:11:00 Test Item Value Reference Range Interpretation Comments Platelet (test code = Platelet) 164 133-450 [facility] HospitalDtgnegpDFNAHFQPKL7285-24-26 10:11:00 Test Item Value Reference Range Interpretation Comments Lymphocytes # (test code = Lymphocytes 1.2 1.0-5.5 #) [facility] HospitalYnyuwvzETGTCPZDXJ6865-89-72 10:11:00 Test Item Value Reference Range Interpretation Comments Monocytes # (test code 0.6 See_Comment [Aut omated message] The = Monocytes #) system which generated this result tra nsmitted reference range : <=0.8. The reference r annemarie was not used to int erpret this result as normal/abnormal . [facility] HospitalBgccffwHQLTRGFJCF1603-00-99 10:11:00 Test Item Value Reference Range Interpretation Comments Eosinophils # (test code 0.2 See_Comment [A utomated message] The = Eosinophils #) system whic h generated this result tra nsmitted reference range : <=0.5. The reference r annemarie was not used to int erpret this result as normal/abnormal . [facility] HospitalHjsgwbcNIDUDHQKMT9438-40-03 10:11:00 Test Item Value Reference Range Interpretation Comments Basophils # (test code 0.0 See_Comment [Aut omated message] The = Basophils #) system which generated this result tra nsmitted reference range : <=0.2. The reference r annemarie was not used to int erpret this result as normal/abnormal . [facility] HospitalZwyhvdwSKJZKEYDQH0907-68-11 10:11:00 Test Item Value Reference Range Interpretation Comments Eosinophils (test code = 2.3 See_Comment [A utomated message] The Eosinophils) system which ge nerated this result tra nsmitted reference range : <=4.0. The reference r annemarie was not used to int erpret this result as normal/abnormal . [facility] HospitalOastbzvLJOMUXUDQZ5149-38-53 10:11:00 Test Item Value Reference Range Interpretation Comments Basophils (test code = 0.3 See_Comment [Aut omated message] The Basophils) system which ge nerated this result tra nsmitted reference range : <=1.0. The reference r annemarie was not used to int erpret this result as normal/abnormal . [facility] HospitalSqbaaynUYFOQRHJQX7119-36-98 10:11:00 Test Item Value Reference Range Interpretation Comments Neutrophils # (test code = Neutrophils 6.5 1.5-8.1 #) [facility] HospitalOfbofrbNFPJMTATIY9337-18-90 10:11:00 Test Item Value Reference Range Interpretation Comments Lymphocytes (test code = Lymphocytes) 14.5 20.0-40.0 [facility] HospitalOptagkcLLAZFLNZAL6751-11-17 10:11:00 Test Item Value Reference Range Interpretation Comments Monocytes (test code = Monocytes) 6.7 2.0-12.0 [facility] HospitalCvaeszvKJEXOYBHCO5290-97-29 10:11:00 Test Item Value Reference Range Interpretation Comments Segs (test code = Segs) 76.2 45.0-75.0 [facility] HospitalPARATHYROID DWHXLHH8284-65-52 10:11:00 Test Item Value Reference Range Interpretation Comments Ca Norm WB (test code = Ca Norm WB) 1.13 1.05-1.25 [facility] HospitalannPARATHYROID NRYPRZV1911-47-49 10:11:00 Test Item Value Reference Range Interpretation Comments Ca Ion WB (test code = Ca Ion WB) 1.17 1.05-1.25 [facility] HospitalCARDIAC VGQWVRV5174-62-73 10:11:00 Test Item Value Reference Range Interpretation Comments Troponin-I (test code no gt See_Comment [Auto mated message] The = Troponin-I) system which g enerated this result transmit abdelrahman reference range : <=0.40. The reference r annemarie was not used to interpr et this result as gurpreet l/abnormal. [facility] HospitalCHEM USRHB3018-33-67 10:11:00 Test Item Value Reference Range Interpretation Comments Phosphorus (test code = Phosphorus) 3.7 2.5-4.5 [facility] HospitalCHEM UEBLM8618-35-11 10:11:00 Test Item Value Reference Range Interpretation Comments Magnesium Lvl (test code = Magnesium 2.1 1.8-2.4 Lvl) [facility] HospitalWgtqfiuLYUUUMTUCICS3447-96-35 10:11:00 Test Item Value Reference Range Interpretation Comments AGAP (test code = AGAP) 11.0 10.0-20.0 [facility] HospitalEwarlegYICMVAHQRVOL8369-12-80 10:11:00 Test Item Value Reference Range Interpretation Comments Creatinine Lvl (test code = Creatinine 0.90 0.50-1.40 Lvl) [facility] HealthXofwnvwZKJXXARIWWJM6628-47-58 10:11:00 Test Item Value Reference Range Interpretation Comments eGFR (test code = eGFR) 114 [facility] HospitalOkrikqpHWYCGAYCXHXD3156-44-83 10:11:00 Test Item Value Reference Range Interpretation Comments Calcium Lvl (test code = Calcium Lvl) 8.2 8.5-10.5 [facility] HospitalZnflkptHZBNTLVEFNJG8301-53-10 10:11:00 Test Item Value Reference Range Interpretation Comments CO2 (test code = CO2) 25 24-32 [facility] HospitalKnalhurKVIIRFIDXING8091-02-34 10:11:00 Test Item Value Reference Range Interpretation Comments Chloride Lvl (test code = Chloride Lvl) 108 95-109 [facility] HospitalTmlrifoBHXBUWNIJRNA8285-58-39 10:11:00 Test Item Value Reference Range Interpretation Comments Potassium Lvl (test code = Potassium 4.0 3.5-5.1 Lvl) [facility] HospitalLoougppPWZIOUCPYKAM5016-14-95 10:11:00 Test Item Value Reference Range Interpretation Comments Sodium Lvl (test code = Sodium Lvl) 140 135-145 [facility] HospitalLialhigWNJKRTVVGZMY8751-84-43 10:11:00 Test Item Value Reference Range Interpretation Comments BUN (test code = BUN) 11 7-22 [facility] HospitalJulyvpgDUWNAOXYWUVX6086-93-40 10:11:00 Test Item Value Reference Range Interpretation Comments Glucose Lvl (test code = Glucose Lvl) 85 70-99 [facility] HospitalBwolnuzSTWOMCNDLQ9659-62-09 10:11:00 Test Item Value Reference Range Interpretation Comments MCH (test code = MCH) 27.9 pg 27.0-31.0 [facility] HospitalKswvyjjREURKSUWSM2337-01-74 10:11:00 Test Item Value Reference Range Interpretation Comments MCHC (test code = MCHC) 33.5 32.0-36.0 [facility] HospitalIjfyjaqXSFJELMRIO3436-69-93 10:11:00 Test Item Value Reference Range Interpretation Comments Hct (test code = Hct) 36.7 42.0-54.0 [facility] HospitalAngxistKKWFYAAWRD6699-74-35 10:11:00 Test Item Value Reference Range Interpretation Comments MCV (test code = MCV) 83.1 80.0-94.0 [facility] HospitalZxmnayiSBIQNKTLHQ5491-07-41 10:11:00 Test Item Value Reference Range Interpretation Comments RBC (test code = RBC) 4.42 4.70-6.10 [facility] HospitalYwzvvmkOYBKRJEZKC8980-49-72 10:11:00 Test Item Value Reference Range Interpretation Comments Hgb (test code = Hgb) 12.3 14.0-18.0 [facility] HospitalUknljtsUXKVNUPPOY2460-76-99 10:11:00 Test Item Value Reference Range Interpretation Comments WBC (test code = WBC) 8.5 3.7-10.4 [facility] HospitalJvjvdboFVEWXGVFQR7603-85-00 10:11:00 Test Item Value Reference Range Interpretation Comments MPV (test code = MPV) 9.5 7.4-10.4 [facility] HospitalVqofwfuABQWIXFLWD8852-76-01 10:11:00 Test Item Value Reference Range Interpretation Comments RDW (test code = RDW) 14.4 11.5-14.5 [facility] HospitalHxuvkefWYLBBVAXYA6173-61-12 10:11:00 Test Item Value Reference Range Interpretation Comments Platelet (test code = Platelet) 164 133-450 [facility] HospitalVfjbsajJONNKUMVVU7544-68-06 10:11:00 Test Item Value Reference Range Interpretation Comments Lymphocytes # (test code = Lymphocytes 1.2 1.0-5.5 #) [facility] HospitalUmjgssmYPPBHLNQTL0351-65-44 10:11:00 Test Item Value Reference Range Interpretation Comments Monocytes # (test code 0.6 See_Comment [Aut omated message] The = Monocytes #) system which generated this result tra nsmitted reference range : <=0.8. The reference r annemarie was not used to int erpret this result as normal/abnormal . [facility] HospitalLxdfkfnJMLWVYZIMH0068-84-15 10:11:00 Test Item Value Reference Range Interpretation Comments Eosinophils # (test code 0.2 See_Comment [A utomated message] The = Eosinophils #) system whic h generated this result tra nsmitted reference range : <=0.5. The reference r annemarie was not used to int erpret this result as normal/abnormal . [facility] HospitalHmlzvezOEPQZDCWAZ7143-20-83 10:11:00 Test Item Value Reference Range Interpretation Comments Basophils # (test code 0.0 See_Comment [Aut omated message] The = Basophils #) system which generated this result tra nsmitted reference range : <=0.2. The reference r annemarie was not used to int erpret this result as normal/abnormal . [facility] HospitalEqjxcxbIOZORFDYBX4590-75-91 10:11:00 Test Item Value Reference Range Interpretation Comments Eosinophils (test code = 2.3 See_Comment [A utomated message] The Eosinophils) system which ge nerated this result tra nsmitted reference range : <=4.0. The reference r annemarie was not used to int erpret this result as normal/abnormal . [facility] HospitalTvlblsiVNOQWFHKSV2904-39-47 10:11:00 Test Item Value Reference Range Interpretation Comments Basophils (test code = 0.3 See_Comment [Aut omated message] The Basophils) system which ge nerated this result tra nsmitted reference range : <=1.0. The reference r annemarie was not used to int erpret this result as normal/abnormal . [facility] HospitalBaekcdcJCUIVWKQKJ2444-66-06 10:11:00 Test Item Value Reference Range Interpretation Comments Neutrophils # (test code = Neutrophils 6.5 1.5-8.1 #) [facility] HospitalMruftixWACBUISHST4861-77-96 10:11:00 Test Item Value Reference Range Interpretation Comments Lymphocytes (test code = Lymphocytes) 14.5 20.0-40.0 [facility] HospitalZnemtbcRBIOWYJSHN3520-04-24 10:11:00 Test Item Value Reference Range Interpretation Comments Monocytes (test code = Monocytes) 6.7 2.0-12.0 [facility] RegionRiyxxlwTEVVRTFWDC6705-97-88 10:11:00 Test Item Value Reference Range Interpretation Comments Segs (test code = Segs) 76.2 45.0-75.0 [facility] HospitalPARATHYROID OEYYAWP6985-26-75 10:11:00 Test Item Value Reference Range Interpretation Comments Ca Norm WB (test code = Ca Norm WB) 1.13 1.05-1.25 [facility] HospitalPARATHYROID APWYFIF8683-22-81 10:11:00 Test Item Value Reference Range Interpretation Comments Ca Ion WB (test code = Ca Ion WB) 1.17 1.05-1.25 [facility] HospitalCARDIAC QNXKLKY8720-15-75 10:11:00 Test Item Value Reference Range Interpretation Comments Troponin-I (test code no gt See_Comment [Auto mated message] The = Troponin-I) system which g enerated this result transmit abdelrahman reference range : <=0.40. The reference r annemarie was not used to interpr et this result as gurpreet l/abnormal. [facility] HospitalCHEM ETVKK5533-66-47 10:11:00 Test Item Value Reference Range Interpretation Comments Phosphorus (test code = Phosphorus) 3.7 2.5-4.5 [facility]annCHEM TKQPF2700-30-79 10:11:00 Test Item Value Reference Range Interpretation Comments Magnesium Lvl (test code = Magnesium 2.1 1.8-2.4 Lvl) [facility] HospitalGhwmiutRJYKMPZTVFRM2982-49-38 10:11:00 Test Item Value Reference Range Interpretation Comments AGAP (test code = AGAP) 11.0 10.0-20.0 [facility] HospitalLjwhcpjIPDXDPVRHDRL3675-68-90 10:11:00 Test Item Value Reference Range Interpretation Comments Creatinine Lvl (test code = Creatinine 0.90 0.50-1.40 Lvl) [facility] [facility]BnzqgteRANQCYJTCGVC9579-49-04 10:11:00 Test Item Value Reference Range Interpretation Comments eGFR (test code = eGFR) 114 [facility] HospitalPyuibhnSXJVDSQKAIQB4611-36-34 10:11:00 Test Item Value Reference Range Interpretation Comments Calcium Lvl (test code = Calcium Lvl) 8.2 8.5-10.5 [facility] HospitalMxuxkjaUDFTQWMVWRRY5448-25-51 10:11:00 Test Item Value Reference Range Interpretation Comments CO2 (test code = CO2) 25 24-32 [facility] HospitalSylzcjhGDSWKSYCGPBK1045-78-56 10:11:00 Test Item Value Reference Range Interpretation Comments Chloride Lvl (test code = Chloride Lvl) 108 95-109 [facility] HospitalWwffwqgPCSRFLRTKPUY8559-83-59 10:11:00 Test Item Value Reference Range Interpretation Comments Potassium Lvl (test code = Potassium 4.0 3.5-5.1 Lvl) [facility] HospitalWaleqbpZEVDTKKWDDGJ2089-51-57 10:11:00 Test Item Value Reference Range Interpretation Comments Sodium Lvl (test code = Sodium Lvl) 140 135-145 [facility] HospitalJzradvuBCLXZCWIKNZH9401-33-94 10:11:00 Test Item Value Reference Range Interpretation Comments BUN (test code = BUN) 11 7-22 [facility] HospitalSasdkghBWTKLDZKKMDQ1318-16-16 10:11:00 Test Item Value Reference Range Interpretation Comments Glucose Lvl (test code = Glucose Lvl) 85 70-99 [facility] HospitalUdinxftDSQUQGLBSU6023-98-04 10:11:00 Test Item Value Reference Range Interpretation Comments MCH (test code = MCH) 27.9 pg 27.0-31.0 [facility] HospitalHnhoqtbLZOZMRILNP4850-45-09 10:11:00 Test Item Value Reference Range Interpretation Comments MCHC (test code = MCHC) 33.5 32.0-36.0 [facility] HospitalTwnzuneOETGAHOHVS0833-83-25 10:11:00 Test Item Value Reference Range Interpretation Comments Hct (test code = Hct) 36.7 42.0-54.0 [facility] HospitalCngucjcDNYSDTNQXS8150-62-82 10:11:00 Test Item Value Reference Range Interpretation Comments MCV (test code = MCV) 83.1 80.0-94.0 [facility] HospitalEtdsojoSYMIHDWUDU7277-35-93 10:11:00 Test Item Value Reference Range Interpretation Comments RBC (test code = RBC) 4.42 4.70-6.10 [facility] HospitalUjmoyioDEYHZDHUSL3650-61-53 10:11:00 Test Item Value Reference Range Interpretation Comments Hgb (test code = Hgb) 12.3 14.0-18.0 [facility] HospitalKvtkuypZVRUZHVMLU9493-26-29 10:11:00 Test Item Value Reference Range Interpretation Comments WBC (test code = WBC) 8.5 3.7-10.4 [facility] HospitalWbsogscJGOAKSRCRO6682-92-25 10:11:00 Test Item Value Reference Range Interpretation Comments MPV (test code = MPV) 9.5 7.4-10.4 [facility] HospitalPrtdiqmJXRFTYEWPJ3152-94-68 10:11:00 Test Item Value Reference Range Interpretation Comments RDW (test code = RDW) 14.4 11.5-14.5 [facility] HospitalZfxuxrfRRNMDUCBNO6367-79-10 10:11:00 Test Item Value Reference Range Interpretation Comments Platelet (test code = Platelet) 164 133-450 [facility] HospitalEodjjdnYJYBCXFDUC2836-62-34 10:11:00 Test Item Value Reference Range Interpretation Comments Lymphocytes # (test code = Lymphocytes 1.2 1.0-5.5 #) [facility] HospitalPokpeypCNEBYVMELP0649-28-57 10:11:00 Test Item Value Reference Range Interpretation Comments Monocytes # (test code 0.6 See_Comment [Aut omated message] The = Monocytes #) system which generated this result tra nsmitted reference range : <=0.8. The reference r annemarie was not used to int erpret this result as normal/abnormal . [facility] HospitalCovhiupGNMRDOPCRP9960-08-87 10:11:00 Test Item Value Reference Range Interpretation Comments Eosinophils # (test code 0.2 See_Comment [A utomated message] The = Eosinophils #) system whic h generated this result tra nsmitted reference range : <=0.5. The reference r annemarie was not used to int erpret this result as normal/abnormal . [facility] HospitalRmujvnmTMAMDWXYNX8338-92-01 10:11:00 Test Item Value Reference Range Interpretation Comments Basophils # (test code 0.0 See_Comment [Aut omated message] The = Basophils #) system which generated this result tra nsmitted reference range : <=0.2. The reference r annemarie was not used to int erpret this result as normal/abnormal . [facility] HospitalCnkbzxwXPJHEFUUMX9500-58-51 10:11:00 Test Item Value Reference Range Interpretation Comments Eosinophils (test code = 2.3 See_Comment [A utomated message] The Eosinophils) system which ge nerated this result tra nsmitted reference range : <=4.0. The reference r annemarie was not used to int erpret this result as normal/abnormal . [facility] HospitalHmqpqmyDUYNZIBGFU5692-90-33 10:11:00 Test Item Value Reference Range Interpretation Comments Basophils (test code = 0.3 See_Comment [Aut omated message] The Basophils) system which ge nerated this result tra nsmitted reference range : <=1.0. The reference r annemarie was not used to int erpret this result as normal/abnormal . [facility] HospitalExfmztuCAYCHOJAUY0673-95-97 10:11:00 Test Item Value Reference Range Interpretation Comments Neutrophils # (test code = Neutrophils 6.5 1.5-8.1 #) [facility] HospitalOniufxeXRDXOKBRYI7662-86-32 10:11:00 Test Item Value Reference Range Interpretation Comments Lymphocytes (test code = Lymphocytes) 14.5 20.0-40.0 [facility] HospitalJdjvinkOGYAKPKFVM3689-56-08 10:11:00 Test Item Value Reference Range Interpretation Comments Monocytes (test code = Monocytes) 6.7 2.0-12.0 [facility] HospitalMdswdsaSRRRKXAMVZ2097-36-81 10:11:00 Test Item Value Reference Range Interpretation Comments Segs (test code = Segs) 76.2 45.0-75.0 [facility]2018-12-14 10:11:00 Test Item Value Reference Range Interpretation Comments Ca Norm WB (test code = Ca Norm WB) 1.13 1.05-1.25 [facility]2018-12-14 10:11:00 Test Item Value Reference Range Interpretation Comments Ca Ion WB (test code = Ca Ion WB) 1.17 1.05-1.25 [facility] AFWECGP6734-31-53 10:11:00 Test Item Value Reference Range Interpretation Comments Troponin-I (test code no gt See_Comment [Auto mated message] The = Troponin-I) system which g enerated this result transmit abdelrahman reference range : <=0.40. The reference r annemarie was not used to interpr et this result as gurpreet l/abnormal. [facility] HospitalCHEM LMEGQ8585-94-26 10:11:00 Test Item Value Reference Range Interpretation Comments Phosphorus (test code = Phosphorus) 3.7 2.5-4.5 [facility]CHEM KISNK4061-01-69 10:11:00 Test Item Value Reference Range Interpretation Comments Magnesium Lvl (test code = Magnesium 2.1 1.8-2.4 Lvl) [facility] HospitalVipoaqgBGWXTIZKDAVQ5640-95-86 10:11:00 Test Item Value Reference Range Interpretation Comments AGAP (test code = AGAP) 11.0 10.0-20.0 [facility]EwxhqflLUVLBMVLQJTJ1328-33-06 10:11:00 Test Item Value Reference Range Interpretation Comments Creatinine Lvl (test code = Creatinine 0.90 0.50-1.40 Lvl) [facility]UwwdvhyEBHBIPULYUAD0220-89-11 10:11:00 Test Item Value Reference Range Interpretation Comments eGFR (test code = eGFR) 114 [facility] HospitalUzkcbnhFRTYQWBJTWQM3939-75-57 10:11:00 Test Item Value Reference Range Interpretation Comments Calcium Lvl (test code = Calcium Lvl) 8.2 8.5-10.5 [facility]XyrduukYMPFZHRKHDKW2997-53-43 10:11:00 Test Item Value Reference Range Interpretation Comments CO2 (test code = CO2) 25 24-32 [facility]WdzdtesUSSPYWBWDZFV7927-79-62 10:11:00 Test Item Value Reference Range Interpretation Comments Chloride Lvl (test code = Chloride Lvl) 108 95-109 [facility] HospitalSgniwnhHGDNGXDVIYFQ4317-31-10 10:11:00 Test Item Value Reference Range Interpretation Comments Potassium Lvl (test code = Potassium 4.0 3.5-5.1 Lvl) [facility]ThxkpdsYQLQGNZOHDTV9718-81-26 10:11:00 Test Item Value Reference Range Interpretation Comments Sodium Lvl (test code = Sodium Lvl) 140 135-145 [facility] HospitalEewheknIZEAPGQYGUPD6286-96-64 10:11:00 Test Item Value Reference Range Interpretation Comments BUN (test code = BUN) 11 7-22 [facility] HospitalErurdwwVRLYVGZGTFHB5506-38-17 10:11:00 Test Item Value Reference Range Interpretation Comments Glucose Lvl (test code = Glucose Lvl) 85 70-99 [facility] HospitalByqhatbLDASGMGLGO0782-41-80 10:11:00 Test Item Value Reference Range Interpretation Comments MCH (test code = MCH) 27.9 pg 27.0-31.0 [facility] HospitalCkryeyeHUIXVQHIJK9234-49-07 10:11:00 Test Item Value Reference Range Interpretation Comments MCHC (test code = MCHC) 33.5 32.0-36.0 [facility] HospitalLwhkuxxKSEKFEKMYD1283-46-50 10:11:00 Test Item Value Reference Range Interpretation Comments Hct (test code = Hct) 36.7 42.0-54.0 [facility] HospitalAcyxrdaMPLGBORKAQ4688-17-08 10:11:00 Test Item Value Reference Range Interpretation Comments MCV (test code = MCV) 83.1 80.0-94.0 [facility] HospitalGvblceyIDMFVWYURF3544-43-58 10:11:00 Test Item Value Reference Range Interpretation Comments RBC (test code = RBC) 4.42 4.70-6.10 [facility] HospitalDtzdzzqVESGPKKEEL3367-76-12 10:11:00 Test Item Value Reference Range Interpretation Comments Hgb (test code = Hgb) 12.3 14.0-18.0 [facility] HospitalAnxnojlLFGLVGVNGE3790-55-11 10:11:00 Test Item Value Reference Range Interpretation Comments WBC (test code = WBC) 8.5 3.7-10.4 [facility] HospitalDvokrmiZJZKFYICLP3201-31-35 10:11:00 Test Item Value Reference Range Interpretation Comments MPV (test code = MPV) 9.5 7.4-10.4 [facility] HospitalShzwoihETKZRTHDDS4763-08-17 10:11:00 Test Item Value Reference Range Interpretation Comments RDW (test code = RDW) 14.4 11.5-14.5 [facility] HospitalVgacffpZDFDGBSFVT6809-04-13 10:11:00 Test Item Value Reference Range Interpretation Comments Platelet (test code = Platelet) 164 133-450 [facility] HospitalIoqndggBCPZZEKAIT5146-53-79 10:11:00 Test Item Value Reference Range Interpretation Comments Lymphocytes # (test code = Lymphocytes 1.2 1.0-5.5 #) [facility] HospitalYtethreCWFYGBHVFK1915-43-66 10:11:00 Test Item Value Reference Range Interpretation Comments Monocytes # (test code 0.6 See_Comment [Aut omated message] The = Monocytes #) system which generated this result tra nsmitted reference range : <=0.8. The reference r annemarie was not used to int erpret this result as normal/abnormal . [facility] HospitalTmsgfvtATUAEXPVGI0295-25-98 10:11:00 Test Item Value Reference Range Interpretation Comments Eosinophils # (test code 0.2 See_Comment [A utomated message] The = Eosinophils #) system whic h generated this result tra nsmitted reference range : <=0.5. The reference r annemarie was not used to int erpret this result as normal/abnormal . [facility] HospitalPeixfkxMMUIPUJYPA7883-85-58 10:11:00 Test Item Value Reference Range Interpretation Comments Basophils # (test code 0.0 See_Comment [Aut omated message] The = Basophils #) system which generated this result tra nsmitted reference range : <=0.2. The reference r annemarie was not used to int erpret this result as normal/abnormal . [facility] HospitalAcvpezfFWJIHQLWTU5672-08-60 10:11:00 Test Item Value Reference Range Interpretation Comments Eosinophils (test code = 2.3 See_Comment [A utomated message] The Eosinophils) system which ge nerated this result tra nsmitted reference range : <=4.0. The reference r annemarie was not used to int erpret this result as normal/abnormal . [facility] HospitalXnmwxrnPBVUOUBCHL7723-10-48 10:11:00 Test Item Value Reference Range Interpretation Comments Basophils (test code = 0.3 See_Comment [Aut omated message] The Basophils) system which ge nerated this result tra nsmitted reference range : <=1.0. The reference r annemarie was not used to int erpret this result as normal/abnormal . [facility] HospitalAnlenmePQRNTBZJAY5887-52-47 10:11:00 Test Item Value Reference Range Interpretation Comments Neutrophils # (test code = Neutrophils 6.5 1.5-8.1 #) [facility] HospitalZoxmcluXCMLAICBPI6283-23-92 10:11:00 Test Item Value Reference Range Interpretation Comments Lymphocytes (test code = Lymphocytes) 14.5 20.0-40.0 [facility]QrejdizBMUWJLRYBK5176-21-29 10:11:00 Test Item Value Reference Range Interpretation Comments Monocytes (test code = Monocytes) 6.7 2.0-12.0 [facility] HospitalBpxnmznQYNMWYOAKN4073-38-22 10:11:00 Test Item Value Reference Range Interpretation Comments Segs (test code = Segs) 76.2 45.0-75.0 [facility] HospitalannPARATHYROID GQWLPEA2708-41-20 10:11:00 Test Item Value Reference Range Interpretation Comments Ca Norm WB (test code = Ca Norm WB) 1.13 1.05-1.25 [facility] HospitalannPARATHYROID TESTNHO5560-41-66 10:11:00 Test Item Value Reference Range Interpretation Comments Ca Ion WB (test code = Ca Ion WB) 1.17 1.05-1.25 [facility]CARDIAC CBXRZGT4094-11-35 10:11:00 Test Item Value Reference Range Interpretation Comments Troponin-I (test code no gt See_Comment [Auto mated message] The = Troponin-I) system which g enerated this result transmit abdelrahman reference range : <=0.40. The reference r annemarie was not used to interpr et this result as gurpreet l/abnormal. [facility] HospitalCHEM QLPZI2179-90-69 10:11:00 Test Item Value Reference Range Interpretation Comments Phosphorus (test code = Phosphorus) 3.7 2.5-4.5 [facility]CHEM JAGFC9089-66-64 10:11:00 Test Item Value Reference Range Interpretation Comments Magnesium Lvl (test code = Magnesium 2.1 1.8-2.4 Lvl) [facility]XtzfitjMKWQATQDDJOH5805-53-00 10:11:00 Test Item Value Reference Range Interpretation Comments AGAP (test code = AGAP) 11.0 10.0-20.0 [facility] HospitalDbzfqiyLIRSLLXRLYSD3231-63-67 10:11:00 Test Item Value Reference Range Interpretation Comments Creatinine Lvl (test code = Creatinine 0.90 0.50-1.40 Lvl) [facility]QwkkypjQHUASJMXHKVZ9920-75-84 10:11:00 Test Item Value Reference Range Interpretation Comments eGFR (test code = eGFR) 114 [facility] HospitalDazxtajKPJSXLSKFOHN3776-97-53 10:11:00 Test Item Value Reference Range Interpretation Comments Calcium Lvl (test code = Calcium Lvl) 8.2 8.5-10.5 [facility] HospitalJmdzplhEXOAJUCIQLYU1232-40-22 10:11:00 Test Item Value Reference Range Interpretation Comments CO2 (test code = CO2) 25 24-32 [facility] HospitalJifqgqvQOTEQLIZFKAH5709-52-33 10:11:00 Test Item Value Reference Range Interpretation Comments Chloride Lvl (test code = Chloride Lvl) 108 95-109 [facility] HospitalSstcxzyCSNPYZKDUUVM0439-72-62 10:11:00 Test Item Value Reference Range Interpretation Comments Potassium Lvl (test code = Potassium 4.0 3.5-5.1 Lvl) [facility] HospitalUjzapmtXXTNBSMXIPQJ1335-68-80 10:11:00 Test Item Value Reference Range Interpretation Comments Sodium Lvl (test code = Sodium Lvl) 140 135-145 [facility] HospitalSjpigkpNHYNOOMLFWOR3618-00-31 10:11:00 Test Item Value Reference Range Interpretation Comments BUN (test code = BUN) 11 7-22 [facility] HospitalLfhlqgmABVGHMDMXTDM6892-75-15 10:11:00 Test Item Value Reference Range Interpretation Comments Glucose Lvl (test code = Glucose Lvl) 85 70-99 [facility] HospitalGrtweclHXDTMCNHSG4444-92-88 10:11:00 Test Item Value Reference Range Interpretation Comments MCH (test code = MCH) 27.9 pg 27.0-31.0 [facility] HospitalYgqdaoqQSGWVBVOCK0176-26-39 10:11:00 Test Item Value Reference Range Interpretation Comments MCHC (test code = MCHC) 33.5 32.0-36.0 [facility] HospitalFyergsbTJSTMUVAZJ7352-82-78 10:11:00 Test Item Value Reference Range Interpretation Comments Hct (test code = Hct) 36.7 42.0-54.0 [facility] HospitalCfyxnpxNFSAHQMAMN4415-68-28 10:11:00 Test Item Value Reference Range Interpretation Comments MCV (test code = MCV) 83.1 80.0-94.0 [facility] HospitalBwhxjhxMQKQFFNEZX9701-91-07 10:11:00 Test Item Value Reference Range Interpretation Comments RBC (test code = RBC) 4.42 4.70-6.10 [facility] HospitalVevuindQEJFQUMGSH5993-93-57 10:11:00 Test Item Value Reference Range Interpretation Comments Hgb (test code = Hgb) 12.3 14.0-18.0 [facility] HospitalSjghtckNPYGEEKXEM5833-69-55 10:11:00 Test Item Value Reference Range Interpretation Comments WBC (test code = WBC) 8.5 3.7-10.4 [facility] HospitalWjwklcyPIGTABKLGK7812-90-34 10:11:00 Test Item Value Reference Range Interpretation Comments MPV (test code = MPV) 9.5 7.4-10.4 [facility] HospitalWwudejqUIYPWCONFA8581-51-90 10:11:00 Test Item Value Reference Range Interpretation Comments RDW (test code = RDW) 14.4 11.5-14.5 [facility] HospitalXkhmiizTEMRFLGRQG3656-33-83 10:11:00 Test Item Value Reference Range Interpretation Comments Platelet (test code = Platelet) 164 133-450 [facility] HospitalYbcxrpuLJIFOBFZKJ9440-52-10 10:11:00 Test Item Value Reference Range Interpretation Comments Lymphocytes # (test code = Lymphocytes 1.2 1.0-5.5 #) [facility] HospitalXclyugpQUGXYQWDLY2001-85-69 10:11:00 Test Item Value Reference Range Interpretation Comments Monocytes # (test code 0.6 See_Comment [Aut omated message] The = Monocytes #) system which generated this result tra nsmitted reference range : <=0.8. The reference r annemarie was not used to int erpret this result as normal/abnormal . [facility] HospitalUsircafWHEKGYSPFU3797-62-53 10:11:00 Test Item Value Reference Range Interpretation Comments Eosinophils # (test code 0.2 See_Comment [A utomated message] The = Eosinophils #) system [facility] generated this result tra nsmitted reference range : <=0.5. The reference r annemarie was not used to int erpret this result as normal/abnormal . [facility] HospitalOzjscyyNQBHBEXBSD0091-42-73 10:11:00 Test Item Value Reference Range Interpretation Comments Basophils # (test code 0.0 See_Comment [Aut omated message] The = Basophils #) system which generated this result tra nsmitted reference range : <=0.2. The reference r annemarie was not used to int erpret this result as normal/abnormal . [facility] HospitalIqrgwdyODSXWIPPZL7567-53-34 10:11:00 Test Item Value Reference Range Interpretation Comments Eosinophils (test code = 2.3 See_Comment [A utomated message] The Eosinophils) system which ge nerated this result tra nsmitted reference range : <=4.0. The reference r annemarie was not used to int erpret this result as normal/abnormal . [facility] HospitalPlluavrMYQTSVWARS2267-75-52 10:11:00 Test Item Value Reference Range Interpretation Comments Basophils (test code = 0.3 See_Comment [Aut omated message] The Basophils) system which ge nerated this result tra nsmitted reference range : <=1.0. The reference r annemarie was not used to int erpret this result as normal/abnormal . [facility] HospitalAbfystvYTSEMTAWCI1410-42-82 10:11:00 Test Item Value Reference Range Interpretation Comments Neutrophils # (test code = Neutrophils 6.5 1.5-8.1 #) [facility]AqnllipGUDTWGAOEI9226-07-67 10:11:00 Test Item Value Reference Range Interpretation Comments Lymphocytes (test code = Lymphocytes) 14.5 20.0-40.0 [facility] HospitalWbkhjpxYFIQWLMQMI5056-89-69 10:11:00 Test Item Value Reference Range Interpretation Comments Monocytes (test code = Monocytes) 6.7 2.0-12.0 [facility] HospitalPmafvfpGRJUAWDTAI7772-75-54 10:11:00 Test Item Value Reference Range Interpretation Comments Segs (test code = Segs) 76.2 45.0-75.0 [facility] HospitalPARATHYROID GQLSYME1193-89-37 10:11:00 Test Item Value Reference Range Interpretation Comments Ca Norm WB (test code = Ca Norm WB) 1.13 1.05-1.25 [facility]annPARATHYROID KUARJZU4347-75-94 10:11:00 Test Item Value Reference Range Interpretation Comments Ca Ion WB (test code = Ca Ion WB) 1.17 1.05-1.25 [facility] HospitalCARDIAC OYKPNCS9868-23-12 10:11:00 Test Item Value Reference Range Interpretation Comments Troponin-I (test code no gt See_Comment [Auto mated message] The = Troponin-I) system which g enerated this result transmit abdelrahman reference range : <=0.40. The reference r annemarie was not used to interpr et this result as gurpreet l/abnormal. [facility] HospitalCHEM FQUGY2191-96-34 10:11:00 Test Item Value Reference Range Interpretation Comments Phosphorus (test code = Phosphorus) 3.7 2.5-4.5 [facility]2018-12-14 10:11:00 Test Item Value Reference Range Interpretation Comments Magnesium Lvl (test code = Magnesium 2.1 1.8-2.4 Lvl) [facility] HospitalLtxmrvfHOVWIEEIPSDD5325-22-51 10:11:00 Test Item Value Reference Range Interpretation Comments AGAP (test code = AGAP) 11.0 10.0-20.0 [facility] HospitalVhuwwxiCTDRBFDWZPVK5590-04-91 10:11:00 Test Item Value Reference Range Interpretation Comments Creatinine Lvl (test code = Creatinine 0.90 0.50-1.40 Lvl) [facility] HospitalMrnxgurXKIEYURLSECV6736-72-07 10:11:00 Test Item Value Reference Range Interpretation Comments eGFR (test code = eGFR) 114 [facility] HospitalPcbswmfPXRLAULUDAJP0823-21-70 10:11:00 Test Item Value Reference Range Interpretation Comments Calcium Lvl (test code = Calcium Lvl) 8.2 8.5-10.5 [facility] HospitalCtsbaxaYHEAPVPHRJXS9408-64-62 10:11:00 Test Item Value Reference Range Interpretation Comments CO2 (test code = CO2) 25 24-32 [facility] HospitalJposicsKWCEHCAJBZKT9844-43-97 10:11:00 Test Item Value Reference Range Interpretation Comments Chloride Lvl (test code = Chloride Lvl) 108 95-109 [facility] HospitalGbxndldNXJLLHWJBRXL2898-15-42 10:11:00 Test Item Value Reference Range Interpretation Comments Potassium Lvl (test code = Potassium 4.0 3.5-5.1 Lvl) [facility] HospitalIuoxhmwGKFHNHDZGXNH5504-62-68 10:11:00 Test Item Value Reference Range Interpretation Comments Sodium Lvl (test code = Sodium Lvl) 140 135-145 [facility] HospitalKbxeipxYSMRYRLWJXUD9462-95-36 10:11:00 Test Item Value Reference Range Interpretation Comments BUN (test code = BUN) 11 7-22 [facility] HospitalQqvgxaqLKENCEXEOZUM4012-16-93 10:11:00 Test Item Value Reference Range Interpretation Comments Glucose Lvl (test code = Glucose Lvl) 85 70-99 [facility] HospitalEuehyhnLPRGZFYWVA6347-20-42 10:11:00 Test Item Value Reference Range Interpretation Comments MCH (test code = MCH) 27.9 pg 27.0-31.0 [facility] HospitalPfzvmzvXGABRMMOFY6469-05-74 10:11:00 Test Item Value Reference Range Interpretation Comments MCHC (test code = MCHC) 33.5 32.0-36.0 [facility] HospitalBwqmtkjGHNGPSNLIT3237-74-90 10:11:00 Test Item Value Reference Range Interpretation Comments Hct (test code = Hct) 36.7 42.0-54.0 [facility] HospitalHiiorzdAJVALQLUFM7260-99-00 10:11:00 Test Item Value Reference Range Interpretation Comments MCV (test code = MCV) 83.1 80.0-94.0 [facility] HospitalOjlhcpbVOHLXWBEZW3283-27-98 10:11:00 Test Item Value Reference Range Interpretation Comments RBC (test code = RBC) 4.42 4.70-6.10 [facility] HospitalMvedlqdVOQIXQONEK8455-80-13 10:11:00 Test Item Value Reference Range Interpretation Comments Hgb (test code = Hgb) 12.3 14.0-18.0 [facility] HospitalIaomydeKFDDGVRBUS7639-90-00 10:11:00 Test Item Value Reference Range Interpretation Comments WBC (test code = WBC) 8.5 3.7-10.4 [facility] HospitalWnbvuonSQFFJKPEFY6383-91-18 10:11:00 Test Item Value Reference Range Interpretation Comments MPV (test code = MPV) 9.5 7.4-10.4 [facility] HospitalNthwkrrCSFKFEXHJT1541-50-34 10:11:00 Test Item Value Reference Range Interpretation Comments RDW (test code = RDW) 14.4 11.5-14.5 [facility] HospitalFosizuxONPXXBZTHF7669-41-17 10:11:00 Test Item Value Reference Range Interpretation Comments Platelet (test code = Platelet) 164 133-450 [facility] HospitalSqeglprRMDCDNRUAR4846-87-92 10:11:00 Test Item Value Reference Range Interpretation Comments Lymphocytes # (test code = Lymphocytes 1.2 1.0-5.5 #) [facility] HospitalJvivtsjSBZXUWEPIZ6820-31-02 10:11:00 Test Item Value Reference Range Interpretation Comments Monocytes # (test code 0.6 See_Comment [Aut omated message] The = Monocytes #) system which generated this result tra nsmitted reference range : <=0.8. The reference r annemarie was not used to int erpret this result as normal/abnormal . [facility] HospitalOcnookuDYKWSZTQOI8391-20-28 10:11:00 Test Item Value Reference Range Interpretation Comments Eosinophils # (test code 0.2 See_Comment [A utomated message] The = Eosinophils #) system whic h generated this result tra nsmitted reference range : <=0.5. The reference r annemarie was not used to int erpret this result as normal/abnormal . [facility] HospitalMwsrsbwRSIJIASQNX9730-93-05 10:11:00 Test Item Value Reference Range Interpretation Comments Basophils # (test code 0.0 See_Comment [Aut omated message] The = Basophils #) system which generated this result tra nsmitted reference range : <=0.2. The reference r annemarie was not used to int erpret this result as normal/abnormal . [facility] HospitalChbzluyGHCGGFGHRL5470-83-27 10:11:00 Test Item Value Reference Range Interpretation Comments Eosinophils (test code = 2.3 See_Comment [A utomated message] The Eosinophils) system which ge nerated this result tra nsmitted reference range : <=4.0. The reference r annemarie was not used to int erpret this result as normal/abnormal . [facility] HospitalRcueseqNGYEHNVGUE2703-42-30 10:11:00 Test Item Value Reference Range Interpretation Comments Basophils (test code = 0.3 See_Comment [Aut omated message] The Basophils) system which ge nerated this result tra nsmitted reference range : <=1.0. The reference r annemarie was not used to int erpret this result as normal/abnormal . [facility] HospitalJqgxuaiPYPZJWBCMW7699-49-53 10:11:00 Test Item Value Reference Range Interpretation Comments Neutrophils # (test code = Neutrophils 6.5 1.5-8.1 #) [facility] HospitalEbacoxqRTOIQTGKAS1965-20-38 10:11:00 Test Item Value Reference Range Interpretation Comments Lymphocytes (test code = Lymphocytes) 14.5 20.0-40.0 [facility] HospitalLxhcascPYHCXZVOPY8601-08-96 10:11:00 Test Item Value Reference Range Interpretation Comments Monocytes (test code = Monocytes) 6.7 2.0-12.0 [facility] HospitalQthmaboALJOBPQMIA2070-81-95 10:11:00 Test Item Value Reference Range Interpretation Comments Segs (test code = Segs) 76.2 45.0-75.0 [facility] [id number] 10:11:00 Test Item Value Reference Range Interpretation Comments Ca Norm WB (test code = Ca Norm WB) 1.13 1.05-1.25 [facility]PAR[facility] EEIJRNJ0487-11-32 10:11:00 Test Item Value Reference Range Interpretation Comments Ca Ion WB (test code = Ca Ion WB) 1.17 1.05-1.25 [facility] HospitalCARDIAC [id number] 10:11:00 Test Item Value Reference Range Interpretation Comments Troponin-I (test code no gt See_Comment [Auto mated message] The = Troponin-I) system which g enerated this result transmit abdelrahman reference range : <=0.40. The reference r annemarie was not used to interpr et this result as gurpreet l/abnormal. [facility] HospitalCHEM [id number] 10:11:00 Test Item Value Reference Range Interpretation Comments Phosphorus (test code = Phosphorus) 3.7 2.5-4.5 [facility] HospitalCHEM [id number] 10:11:00 Test Item Value Reference Range Interpretation Comments Magnesium Lvl (test code = Magnesium 2.1 1.8-2.4 Lvl) [facility]ImhgigzUYMYVCIVJGOB1587-61-05 10:11:00 Test Item Value Reference Range Interpretation Comments AGAP (test code = AGAP) 11.0 10.0-20.0 [facility]KqzbzenSPRFVTDAVZCD2297-10-15 10:11:00 Test Item Value Reference Range Interpretation Comments Creatinine Lvl (test code = Creatinine 0.90 0.50-1.40 Lvl) [facility] HospitalYimhdjfGUERMYNRCUWP6101-06-85 10:11:00 Test Item Value Reference Range Interpretation Comments eGFR (test code = eGFR) 114 [facility] HospitalCfcqidqNTJPBNKIFKWW8803-90-71 10:11:00 Test Item Value Reference Range Interpretation Comments Calcium Lvl (test code = Calcium Lvl) 8.2 8.5-10.5 [facility] HospitalNvkuggnFLSDAICWWUBU8135-60-62 10:11:00 Test Item Value Reference Range Interpretation Comments CO2 (test code = CO2) 25 24-32 [facility]IcyqozqCQIKMVUGQRXY8178-76-94 10:11:00 Test Item Value Reference Range Interpretation Comments Chloride Lvl (test code = Chloride Lvl) 108 95-109 [facility] HospitalAairjkvIUGFFDYSRLWA2233-87-99 10:11:00 Test Item Value Reference Range Interpretation Comments Potassium Lvl (test code = Potassium 4.0 3.5-5.1 Lvl) [facility] HospitalVftnxwqAHILUFJSHSSH1917-46-02 10:11:00 Test Item Value Reference Range Interpretation Comments Sodium Lvl (test code = Sodium Lvl) 140 135-145 [facility] HospitalNmldrrrPIJTEYOXUMMS6121-15-77 10:11:00 Test Item Value Reference Range Interpretation Comments BUN (test code = BUN) 11 7-22 [facility] HospitalHvlvuofQGKQQUPDPDCB2116-63-77 10:11:00 Test Item Value Reference Range Interpretation Comments Glucose Lvl (test code = Glucose Lvl) 85 70-99 [facility] HospitalEyyyutiPCOXDMDYQW4188-43-34 10:11:00 Test Item Value Reference Range Interpretation Comments MCH (test code = MCH) 27.9 pg 27.0-31.0 [facility] HospitalFpiutzpZGQYREIXDB2835-62-54 10:11:00 Test Item Value Reference Range Interpretation Comments MCHC (test code = MCHC) 33.5 32.0-36.0 [facility] HospitalVyrhpuxGUSXUYQNOM3742-08-45 10:11:00 Test Item Value Reference Range Interpretation Comments Hct (test code = Hct) 36.7 42.0-54.0 [facility] HospitalNouzmfeEARHXOXSWG6393-17-09 10:11:00 Test Item Value Reference Range Interpretation Comments MCV (test code = MCV) 83.1 80.0-94.0 [facility] HospitalUvkuuryPYZXHRXCQK7246-27-15 10:11:00 Test Item Value Reference Range Interpretation Comments RBC (test code = RBC) 4.42 4.70-6.10 [facility] HospitalKaiqiuuZDMUBHYWER2458-29-64 10:11:00 Test Item Value Reference Range Interpretation Comments Hgb (test code = Hgb) 12.3 14.0-18.0 [facility] HospitalBygkyioSHIXWRULQT5872-92-90 10:11:00 Test Item Value Reference Range Interpretation Comments WBC (test code = WBC) 8.5 3.7-10.4 [facility] HospitalDefgmgbXPBEYAPHHS2375-36-82 10:11:00 Test Item Value Reference Range Interpretation Comments MPV (test code = MPV) 9.5 7.4-10.4 [facility] HospitalFzgzkqsVDHTSQQAKL2107-23-71 10:11:00 Test Item Value Reference Range Interpretation Comments RDW (test code = RDW) 14.4 11.5-14.5 [facility] HospitalVfugjcoHZHVUQPZCO6891-65-78 10:11:00 Test Item Value Reference Range Interpretation Comments Platelet (test code = Platelet) 164 133-450 [facility] HospitalGdvyiozEHLXTAFCVQ6732-93-10 10:11:00 Test Item Value Reference Range Interpretation Comments Lymphocytes # (test code = Lymphocytes 1.2 1.0-5.5 #) [facility] HospitalJgayvcxXGHFEZKXIL0370-68-43 10:11:00 Test Item Value Reference Range Interpretation Comments Monocytes # (test code 0.6 See_Comment [Aut omated message] The = Monocytes #) system which generated this result tra nsmitted reference range : <=0.8. The reference r annemarie was not used to int erpret this result as normal/abnormal . [facility] HospitalMxltporZLTLEFHFKL7542-60-42 10:11:00 Test Item Value Reference Range Interpretation Comments Eosinophils # (test code 0.2 See_Comment [A utomated message] The = Eosinophils #) system whic h generated this result tra nsmitted reference range : <=0.5. The reference r annemarie was not used to int erpret this result as normal/abnormal . [facility] HospitalXgyroxjKZPGWVMTLE4127-14-39 10:11:00 Test Item Value Reference Range Interpretation Comments Basophils # (test code 0.0 See_Comment [Aut omated message] The = Basophils #) system which generated this result tra nsmitted reference range : <=0.2. The reference r annemarie was not used to int erpret this result as normal/abnormal . [facility] HospitalOuiwwenDNJJRZICOZ2272-87-17 10:11:00 Test Item Value Reference Range Interpretation Comments Eosinophils (test code = 2.3 See_Comment [A utomated message] The Eosinophils) system which ge nerated this result tra nsmitted reference range : <=4.0. The reference r annemarie was not used to int erpret this result as normal/abnormal . [facility] HospitalMuflexuSJKTCFKKXX8194-38-98 10:11:00 Test Item Value Reference Range Interpretation Comments Basophils (test code = 0.3 See_Comment [Aut omated message] The Basophils) system which ge nerated this result tra nsmitted reference range : <=1.0. The reference r annemarie was not used to int erpret this result as normal/abnormal . [facility] HospitalJdgndxcOVLAAYBNDP2668-04-72 10:11:00 Test Item Value Reference Range Interpretation Comments Neutrophils # (test code = Neutrophils 6.5 1.5-8.1 #) [facility] HospitalWreshkdAQSGYQUBTZ0595-48-82 10:11:00 Test Item Value Reference Range Interpretation Comments Lymphocytes (test code = Lymphocytes) 14.5 20.0-40.0 [facility] HospitalWgoogpdVFFRXZZGLJ3769-06-19 10:11:00 Test Item Value Reference Range Interpretation Comments Monocytes (test code = Monocytes) 6.7 2.0-12.0 [facility] HospitalBienqgoJRWZCMGRJO1162-97-23 10:11:00 Test Item Value Reference Range Interpretation Comments Segs (test code = Segs) 76.2 45.0-75.0 [facility]2018-12-14 10:11:00 Test Item Value Reference Range Interpretation Comments Ca Norm WB (test code = Ca Norm WB) 1.13 1.05-1.25 [facility]2018-12-14 10:11:00 Test Item Value Reference Range Interpretation Comments Ca Ion WB (test code = Ca Ion WB) 1.17 1.05-1.25 [facility] AND [id number] 06:21:00 Test Item Value Reference Range Interpretation Comments UA Sq Epi (test code = None Seen (04/13/18 UA Sq Epi) 12:21 AM) [facility] AND [id number] 06:21:00 Test Item Value Reference Range Interpretation Comments UA WBC (test code = 1 See_Comment [Automa abdelrahman message] The UA WBC) system which ge nerated this result transmit abdelrahman reference range : <=5. The reference range was not used to interpr et this result as gurpreet l/abnormal. [facility] AND [id number] 06:21:00 Test Item Value Reference Range Interpretation Comments UA RBC (test code = 1 See_Comment [Automa abdelrahman message] The UA RBC) system which ge nerated this result transmit abdelrahman reference range : <=2. The reference range was not used to interpr et this result as gurpreet l/abnormal. [facility] AND [id number] 06:21:00 Test Item Value Reference Range Interpretation Comments UA [place] Yeast (test code = UA Occasional /HPF [place] Yeast) [facility] AND [id number] 06:21:00 Test Item Value Reference Range Interpretation Comments UA Color (test code = UA Color) Ltyellow [facility] AND [id number] 06:21:00 Test Item Value Reference Range Interpretation Comments UA Spec Grav (test code = UA Spec 1.009 1 Grav) [facility] AND [id number] 06:21:00 Test Item Value Reference Range Interpretation Comments UA Turbidity (test code = Clear (04/13/18 UA Turbidity) 12:21 AM) [facility] AND [id number] 06:21:00 Test Item Value Reference Range Interpretation Comments UA Urobilinogen (test code = UA no gt 0.1-1.0 Urobilinogen) [facility] AND [id number] 06:21:00 Test Item Value Reference Range Interpretation Comments UA Ketones (test code Negative *NA*(04/13/18 = UA Ketones) 12:21 AM) [facility] AND [id number] 06:21:00 Test Item Value Reference Range Interpretation Comments UA Glucose (test code Negative *NA*(04/13/18 = UA Glucose) 12:21 AM) [facility] AND [id number] 06:21:00 Test Item Value Reference Range Interpretation Comments UA Leuk Est (test code Trace *ABN*(04/13/18 = UA Leuk Est) 12:21 AM) [facility] AND [id number] 06:21:00 Test Item Value Reference Range Interpretation Comments UA Nitrite (test code Negative (04/13/18 = UA Nitrite) 12:21 AM) [facility] AND [id number] 06:21:00 Test Item Value Reference Range Interpretation Comments UA Bili (test code = Negative *NA*(04/13/18 UA Bili) 12:21 AM) [facility] AND [id number] 06:21:00 Test Item Value Reference Range Interpretation Comments UA pH (test code = UA pH) 7.0 1 5.0-8.0 [facility] AND [id number] 06:21:00 Test Item Value Reference Range Interpretation Comments UA Blood (test code = Negative (04/13/18 12:21 UA Blood) AM) [facility] AND [id number] 06:21:00 Test Item Value Reference Range Interpretation Comments UA Protein (test code Negative (04/13/18 = UA Protein) 12:21 AM) [facility] [id number] 06:21:00 Test Item Value Reference Range Interpretation Comments UA Sq Epi (test code = None Seen (04/13/18 UA Sq Epi) 12:21 AM) [facility] [id number] 06:21:00 Test Item Value Reference Range Interpretation Comments UA WBC (test code = 1 See_Comment [Automa abdelrahman message] The UA WBC) system which ge nerated this result transmit abdelrahman reference range : <=5. The reference range was not used to interpr et this result as gurpreet l/abnormal. [facility] [id number] 06:21:00 Test Item Value Reference Range Interpretation Comments UA RBC (test code = 1 See_Comment [Automa abdelrahman message] The UA RBC) system which ge nerated this result transmit abdelrahman reference range : <=2. The reference range was not used to interpr et this result as gurpreet l/abnormal. [facility] [id number] 06:21:00 Test Item Value Reference Range Interpretation Comments UA [place] Yeast (test code = UA Occasional /HPF [place] Yeast) [facility] [id number] 06:21:00 Test Item Value Reference Range Interpretation Comments UA Color (test code = UA Color) Ltyellow [facility] AND [id number] 06:21:00 Test Item Value Reference Range Interpretation Comments UA Spec Grav (test code = UA Spec 1.009 1 Grav) [facility] AND [id number] 06:21:00 Test Item Value Reference Range Interpretation Comments UA Turbidity (test code = Clear (04/13/18 UA Turbidity) 12:21 AM) [facility] [id number] 06:21:00 Test Item Value Reference Range Interpretation Comments UA Urobilinogen (test code = UA no gt 0.1-1.0 Urobilinogen) [facility] [id number] 06:21:00 Test Item Value Reference Range Interpretation Comments UA Ketones (test code Negative *NA*(04/13/18 = UA Ketones) 12:21 AM) [facility] [id number] 06:21:00 Test Item Value Reference Range Interpretation Comments UA Glucose (test code Negative *NA*(04/13/18 = UA Glucose) 12:21 AM) [facility] AND [id number] 06:21:00 Test Item Value Reference Range Interpretation Comments UA Leuk Est (test code Trace *ABN*(04/13/18 = UA Leuk Est) 12:21 AM) [facility] AND [id number] 06:21:00 Test Item Value Reference Range Interpretation Comments UA Nitrite (test code Negative (04/13/18 = UA Nitrite) 12:21 AM) [facility] AND [id number] 06:21:00 Test Item Value Reference Range Interpretation Comments UA Bili (test code = Negative *NA*(04/13/18 UA Bili) 12:21 AM) [facility] AND [id number] 06:21:00 Test Item Value Reference Range Interpretation Comments UA pH (test code = UA pH) 7.0 1 5.0-8.0 [facility] AND [id number] 06:21:00 Test Item Value Reference Range Interpretation Comments UA Blood (test code = Negative (04/13/18 12:21 UA Blood) AM) [facility] AND [id number] 06:21:00 Test Item Value Reference Range Interpretation Comments UA Protein (test code Negative (04/13/18 = UA Protein) 12:21 AM) [facility] AND [id number] 06:21:00 Test Item Value Reference Range Interpretation Comments UA Sq Epi (test code = None Seen (04/13/18 UA Sq Epi) 12:21 AM) [facility] AND [id number] 06:21:00 Test Item Value Reference Range Interpretation Comments UA WBC (test code = 1 See_Comment [Automa abdelrahman message] The UA WBC) system which ge nerated this result transmit abdelrahman reference range : <=5. The reference range was not used to interpr et this result as gurpreet l/abnormal. [facility] [id number] 06:21:00 Test Item Value Reference Range Interpretation Comments UA RBC (test code = 1 See_Comment [Automa abdelrahman message] The UA RBC) system which ge nerated this result transmit abdelrahman reference range : <=2. The reference range was not used to interpr et this result as gurpreet l/abnormal. [facility] AND [id number] 06:21:00 Test Item Value Reference Range Interpretation Comments UA [place] Yeast (test code = UA Occasional /HPF [place] Yeast) [facility] AND [id number] 06:21:00 Test Item Value Reference Range Interpretation Comments UA Color (test code = UA Color) Ltyellow [facility] AND [id number] 06:21:00 Test Item Value Reference Range Interpretation Comments UA Spec Grav (test code = UA Spec 1.009 1 Grav) [facility] AND [id number] 06:21:00 Test Item Value Reference Range Interpretation Comments UA Turbidity (test code = Clear (04/13/18 UA Turbidity) 12:21 AM) [facility] AND [id number] 06:21:00 Test Item Value Reference Range Interpretation Comments UA Urobilinogen (test code = UA no gt 0.1-1.0 Urobilinogen) [facility] AND [id number] 06:21:00 Test Item Value Reference Range Interpretation Comments UA Ketones (test code Negative *NA*(04/13/18 = UA Ketones) 12:21 AM) [facility] AND [id number] 06:21:00 Test Item Value Reference Range Interpretation Comments UA Glucose (test code Negative *NA*(04/13/18 = UA Glucose) 12:21 AM) [facility] AND [id number] 06:21:00 Test Item Value Reference Range Interpretation Comments UA Leuk Est (test code Trace *ABN*(04/13/18 = UA Leuk Est) 12:21 AM) [facility] AND [id number] 06:21:00 Test Item Value Reference Range Interpretation Comments UA Nitrite (test code Negative (04/13/18 = UA Nitrite) 12:21 AM) [facility] AND [id number] 06:21:00 Test Item Value Reference Range Interpretation Comments UA Bili (test code = Negative *NA*(04/13/18 UA Bili) 12:21 AM) [facility] AND [id number] 06:21:00 Test Item Value Reference Range Interpretation Comments UA pH (test code = UA pH) 7.0 1 5.0-8.0 [facility] AND [id number] 06:21:00 Test Item Value Reference Range Interpretation Comments UA Blood (test code = Negative (04/13/18 12:21 UA Blood) AM) [facility] AND [id number] 06:21:00 Test Item Value Reference Range Interpretation Comments UA Protein (test code Negative (04/13/18 = UA Protein) 12:21 AM) [facility] [id number] 06:21:00 Test Item Value Reference Range Interpretation Comments UA Sq Epi (test code = None Seen (04/13/18 UA Sq Epi) 12:21 AM) [facility] [id number] 06:21:00 Test Item Value Reference Range Interpretation Comments UA WBC (test code = 1 See_Comment [Automa abdelrahman message] The UA WBC) system which ge nerated this result transmit abdelrahman reference range : <=5. The reference range was not used to interpr et this result as gurpreet l/abnormal. [facility] AND [id number] 06:21:00 Test Item Value Reference Range Interpretation Comments UA RBC (test code = 1 See_Comment [Automa abdelrahman message] The UA RBC) system which ge nerated this result transmit abdelrahman reference range : <=2. The reference range was not used to interpr et this result as gurpreet l/abnormal. [facility] AND [id number] 06:21:00 Test Item Value Reference Range Interpretation Comments UA [place] Yeast (test code = UA Occasional /HPF [place] Yeast) [facility] [id number] 06:21:00 Test Item Value Reference Range Interpretation Comments UA Color (test code = UA Color) Ltyellow [facility] AND [id number] 06:21:00 Test Item Value Reference Range Interpretation Comments UA Spec Grav (test code = UA Spec 1.009 1 Grav) [facility] AND [id number] 06:21:00 Test Item Value Reference Range Interpretation Comments UA Turbidity (test code = Clear (04/13/18 UA Turbidity) 12:21 AM) [facility] AND [id number] 06:21:00 Test Item Value Reference Range Interpretation Comments UA Urobilinogen (test code = UA no gt 0.1-1.0 Urobilinogen) [facility] AND [id number] 06:21:00 Test Item Value Reference Range Interpretation Comments UA Ketones (test code Negative *NA*(04/13/18 = UA Ketones) 12:21 AM) [facility] AND [id number] 06:21:00 Test Item Value Reference Range Interpretation Comments UA Glucose (test code Negative *NA*(04/13/18 = UA Glucose) 12:21 AM) [facility] AND [id number] 06:21:00 Test Item Value Reference Range Interpretation Comments UA Leuk Est (test code Trace *ABN*(04/13/18 = UA Leuk Est) 12:21 AM) [facility] AND [id number] 06:21:00 Test Item Value Reference Range Interpretation Comments UA Nitrite (test code Negative (04/13/18 = UA Nitrite) 12:21 AM) [facility] AND [id number] 06:21:00 Test Item Value Reference Range Interpretation Comments UA Bili (test code = Negative *NA*(04/13/18 UA Bili) 12:21 AM) [facility] AND [id number] 06:21:00 Test Item Value Reference Range Interpretation Comments UA pH (test code = UA pH) 7.0 1 5.0-8.0 [facility] AND [id number] 06:21:00 Test Item Value Reference Range Interpretation Comments UA Blood (test code = Negative (04/13/18 12:21 UA Blood) AM) [facility] AND [id number] 06:21:00 Test Item Value Reference Range Interpretation Comments UA Protein (test code Negative (04/13/18 = UA Protein) 12:21 AM) [facility] AND [id number] 06:21:00 Test Item Value Reference Range Interpretation Comments UA Sq Epi (test code = None Seen (04/13/18 UA Sq Epi) 12:21 AM) [facility] AND [id number] 06:21:00 Test Item Value Reference Range Interpretation Comments UA WBC (test code = 1 See_Comment [Automa abdelrahman message] The UA WBC) system which ge nerated this result transmit abdelrahman reference range : <=5. The reference range was not used to interpr et this result as gurpreet l/abnormal. [facility] AND [id number] 06:21:00 Test Item Value Reference Range Interpretation Comments UA RBC (test code = 1 See_Comment [Automa abdelrahman message] The UA RBC) system which ge nerated this result transmit abdelrahman reference range : <=2. The reference range was not used to interpr et this result as gurpreet l/abnormal. [facility] AND [id number] 06:21:00 Test Item Value Reference Range Interpretation Comments UA [place] Yeast (test code = UA Occasional /HPF [place] Yeast) [facility] AND [id number] 06:21:00 Test Item Value Reference Range Interpretation Comments UA Color (test code = UA Color) Ltyellow [facility] AND [id number] 06:21:00 Test Item Value Reference Range Interpretation Comments UA Spec Grav (test code = UA Spec 1.009 1 Grav) [facility] AND [id number] 06:21:00 Test Item Value Reference Range Interpretation Comments UA Turbidity (test code = Clear (04/13/18 UA Turbidity) 12:21 AM) [facility] AND [id number] 06:21:00 Test Item Value Reference Range Interpretation Comments UA Urobilinogen (test code = UA no gt 0.1-1.0 Urobilinogen) [facility] AND [id number] 06:21:00 Test Item Value Reference Range Interpretation Comments UA Ketones (test code Negative *NA*(04/13/18 = UA Ketones) 12:21 AM) [facility] AND [id number] 06:21:00 Test Item Value Reference Range Interpretation Comments UA Glucose (test code Negative *NA*(04/13/18 = UA Glucose) 12:21 AM) [facility] AND [id number] 06:21:00 Test Item Value Reference Range Interpretation Comments UA Leuk Est (test code Trace *ABN*(04/13/18 = UA Leuk Est) 12:21 AM) [facility] AND [id number] 06:21:00 Test Item Value Reference Range Interpretation Comments UA Nitrite (test code Negative (04/13/18 = UA Nitrite) 12:21 AM) [facility] AND [id number] 06:21:00 Test Item Value Reference Range Interpretation Comments UA Bili (test code = Negative *NA*(04/13/18 UA Bili) 12:21 AM) [facility] [id number] 06:21:00 Test Item Value Reference Range Interpretation Comments UA pH (test code = UA pH) 7.0 1 5.0-8.0 [facility] [id number] 06:21:00 Test Item Value Reference Range Interpretation Comments UA Blood (test code = Negative (04/13/18 12:21 UA Blood) AM) [facility] [id number] 06:21:00 Test Item Value Reference Range Interpretation Comments UA Protein (test code Negative (04/13/18 = UA Protein) 12:21 AM) [facility] [id number] 06:21:00 Test Item Value Reference Range Interpretation Comments UA Sq Epi (test code = None Seen (04/13/18 UA Sq Epi) 12:21 AM) [facility] [id number] 06:21:00 Test Item Value Reference Range Interpretation Comments UA WBC (test code = 1 See_Comment [Automa abdelrahman message] The UA WBC) system which ge nerated this result transmit abdelrahman reference range : <=5. The reference range was not used to interpr et this result as gurpreet l/abnormal. [facility] [id number] 06:21:00 Test Item Value Reference Range Interpretation Comments UA RBC (test code = 1 See_Comment [Automa abdelrahman message] The UA RBC) system which ge nerated this result transmit abdelrahman reference range : <=2. The reference range was not used to interpr et this result as gurpreet l/abnormal. [facility] [id number] 06:21:00 Test Item Value Reference Range Interpretation Comments UA [place] Yeast (test code = UA Occasional /HPF [place] Yeast) [facility] [id number] 06:21:00 Test Item Value Reference Range Interpretation Comments UA Color (test code = UA Color) Ltyellow [facility] [id number] 06:21:00 Test Item Value Reference Range Interpretation Comments UA Spec Grav (test code = UA Spec 1.009 1 Grav) [facility] [id number] 06:21:00 Test Item Value Reference Range Interpretation Comments UA Turbidity (test code = Clear (04/13/18 UA Turbidity) 12:21 AM) [facility] AND [id number] 06:21:00 Test Item Value Reference Range Interpretation Comments UA Urobilinogen (test code = UA no gt 0.1-1.0 Urobilinogen) [facility] AND [id number] 06:21:00 Test Item Value Reference Range Interpretation Comments UA Ketones (test code Negative *NA*(04/13/18 = UA Ketones) 12:21 AM) [facility] AND [id number] 06:21:00 Test Item Value Reference Range Interpretation Comments UA Glucose (test code Negative *NA*(04/13/18 = UA Glucose) 12:21 AM) [facility] AND [id number] 06:21:00 Test Item Value Reference Range Interpretation Comments UA Leuk Est (test code Trace *ABN*(04/13/18 = UA Leuk Est) 12:21 AM) [facility] AND [id number] 06:21:00 Test Item Value Reference Range Interpretation Comments UA Nitrite (test code Negative (04/13/18 = UA Nitrite) 12:21 AM) [facility] AND [id number] 06:21:00 Test Item Value Reference Range Interpretation Comments UA Bili (test code = Negative *NA*(04/13/18 UA Bili) 12:21 AM) [facility] AND [id number] 06:21:00 Test Item Value Reference Range Interpretation Comments UA pH (test code = UA pH) 7.0 1 5.0-8.0 [facility] AND [id number] 06:21:00 Test Item Value Reference Range Interpretation Comments UA Blood (test code = Negative (04/13/18 12:21 UA Blood) AM) [facility] AND [id number] 06:21:00 Test Item Value Reference Range Interpretation Comments UA Protein (test code Negative (04/13/18 = UA Protein) 12:21 AM) [facility] AND [id number] 06:21:00 Test Item Value Reference Range Interpretation Comments UA Sq Epi (test code = None Seen (04/13/18 UA Sq Epi) 12:21 AM) [facility] AND [id number] 06:21:00 Test Item Value Reference Range Interpretation Comments UA WBC (test code = 1 See_Comment [Automa abdelrahman message] The UA WBC) system which ge nerated this result transmit abdelrahman reference range : <=5. The reference range was not used to interpr et this result as gurpreet l/abnormal. [facility] AND [id number] 06:21:00 Test Item Value Reference Range Interpretation Comments UA RBC (test code = 1 See_Comment [Automa abdelrahman message] The UA RBC) system which ge nerated this result transmit abdelrahman reference range : <=2. The reference range was not used to interpr et this result as gurpreet l/abnormal. [facility] AND [id number] 06:21:00 Test Item Value Reference Range Interpretation Comments UA [place] Yeast (test code = UA Occasional /HPF [place] Yeast) [facility] AND [id number] 06:21:00 Test Item Value Reference Range Interpretation Comments UA Color (test code = UA Color) Ltyellow [facility] AND [id number] 06:21:00 Test Item Value Reference Range Interpretation Comments UA Spec Grav (test code = UA Spec 1.009 1 Grav) [facility] AND [id number] 06:21:00 Test Item Value Reference Range Interpretation Comments UA Turbidity (test code = Clear (04/13/18 UA Turbidity) 12:21 AM) [facility] AND [id number] 06:21:00 Test Item Value Reference Range Interpretation Comments UA Urobilinogen (test code = UA no gt 0.1-1.0 Urobilinogen) [facility] AND [id number] 06:21:00 Test Item Value Reference Range Interpretation Comments UA Ketones (test code Negative *NA*(04/13/18 = UA Ketones) 12:21 AM) [facility] AND [id number] 06:21:00 Test Item Value Reference Range Interpretation Comments UA Glucose (test code Negative *NA*(04/13/18 = UA Glucose) 12:21 AM) [facility] AND [id number] 06:21:00 Test Item Value Reference Range Interpretation Comments UA Leuk Est (test code Trace *ABN*(04/13/18 = UA Leuk Est) 12:21 AM) [facility] [id number] 06:21:00 Test Item Value Reference Range Interpretation Comments UA Nitrite (test code Negative (04/13/18 = UA Nitrite) 12:21 AM) [facility] [id number] 06:21:00 Test Item Value Reference Range Interpretation Comments UA Bili (test code = Negative *NA*(04/13/18 UA Bili) 12:21 AM) [facility] [id number] 06:21:00 Test Item Value Reference Range Interpretation Comments UA pH (test code = UA pH) 7.0 1 5.0-8.0 [facility] [id number] 06:21:00 Test Item Value Reference Range Interpretation Comments UA Blood (test code = Negative (04/13/18 12:21 UA Blood) AM) [facility] [id number] 06:21:00 Test Item Value Reference Range Interpretation Comments UA Protein (test code Negative (04/13/18 = UA Protein) 12:21 AM) [facility] [id number] 06:21:00 Test Item Value Reference Range Interpretation Comments UA Sq Epi (test code = None Seen (04/13/18 UA Sq Epi) 12:21 AM) [facility] [id number] 06:21:00 Test Item Value Reference Range Interpretation Comments UA WBC (test code = 1 See_Comment [Automa abdelrahman message] The UA WBC) system which ge nerated this result transmit abdelrahman reference range : <=5. The reference range was not used to interpr et this result as gurpreet l/abnormal. [facility] [id number] 06:21:00 Test Item Value Reference Range Interpretation Comments UA RBC (test code = 1 See_Comment [Automa abdelrahman message] The UA RBC) system which ge nerated this result transmit abdelrahman reference range : <=2. The reference range was not used to interpr et this result as gurpreet l/abnormal. [facility] [id number] 06:21:00 Test Item Value Reference Range Interpretation Comments UA [place] Yeast (test code = UA Occasional /HPF [place] Yeast) [facility] [id number] 06:21:00 Test Item Value Reference Range Interpretation Comments UA Color (test code = UA Color) Ltyellow [facility] AND [id number] 06:21:00 Test Item Value Reference Range Interpretation Comments UA Spec Grav (test code = UA Spec 1.009 1 Grav) [facility] AND [id number] 06:21:00 Test Item Value Reference Range Interpretation Comments UA Turbidity (test code = Clear (04/13/18 UA Turbidity) 12:21 AM) [facility] AND [id number] 06:21:00 Test Item Value Reference Range Interpretation Comments UA Urobilinogen (test code = UA no gt 0.1-1.0 Urobilinogen) [facility] AND [id number] 06:21:00 Test Item Value Reference Range Interpretation Comments UA Ketones (test code Negative *NA*(04/13/18 = UA Ketones) 12:21 AM) [facility] AND [id number] 06:21:00 Test Item Value Reference Range Interpretation Comments UA Glucose (test code Negative *NA*(04/13/18 = UA Glucose) 12:21 AM) [facility] AND [id number] 06:21:00 Test Item Value Reference Range Interpretation Comments UA Leuk Est (test code Trace *ABN*(04/13/18 = UA Leuk Est) 12:21 AM) [facility] AND [id number] 06:21:00 Test Item Value Reference Range Interpretation Comments UA Nitrite (test code Negative (04/13/18 = UA Nitrite) 12:21 AM) [facility] AND [id number] 06:21:00 Test Item Value Reference Range Interpretation Comments UA Bili (test code = Negative *NA*(04/13/18 UA Bili) 12:21 AM) [facility] AND [id number] 06:21:00 Test Item Value Reference Range Interpretation Comments UA pH (test code = UA pH) 7.0 1 5.0-8.0 [facility] AND [id number] 06:21:00 Test Item Value Reference Range Interpretation Comments UA Blood (test code = Negative (04/13/18 12:21 UA Blood) AM) [facility] AND [id number] 06:21:00 Test Item Value Reference Range Interpretation Comments UA Protein (test code Negative (04/13/18 = UA Protein) 12:21 AM) [facility] [id number] 05:42:00 Test Item Value Reference Range Interpretation Comments Troponin-I (test code no gt See_Comment [Auto mated message] The = Troponin-I) system which g enerated this result transmit abdelrahman reference range : <=0.40. The reference r annemarie was not used to interpr et this result as gurpreet l/abnormal. [id number] 05:42:00 Test Item Value Reference Range Interpretation Comments HIV Ag/Ab 4th Gen Negative *NA*(04/12/18 (test code = HIV 11:42 PM) Ag/Ab 4th Gen) [facility]2018-12-14 05:42:00 Test Item Value Reference Range Interpretation Comments Troponin-I (test code no gt See_Comment [Auto mated message] The = Troponin-I) system which g enerated this result transmit abdelrahman reference range : <=0.40. The reference r annemarie was not used to interpr et this result as gurpreet l/abnormal. [id number] 05:42:00 Test Item Value Reference Range Interpretation Comments HIV Ag/Ab 4th Gen Negative *NA*(04/12/18 (test code = HIV 11:42 PM) Ag/Ab 4th Gen) [facility] [id number] 05:42:00 Test Item Value Reference Range Interpretation Comments Troponin-I (test code no gt See_Comment [Auto mated message] The = Troponin-I) system which g enerated this result transmit abdelrahman reference range : <=0.40. The reference r annemarie was not used to interpr et this result as gurpreet l/abnormal. [id number] 05:42:00 Test Item Value Reference Range Interpretation Comments HIV Ag/Ab 4th Gen Negative *NA*(04/12/18 (test code = HIV 11:42 PM) Ag/Ab 4th Gen) [facility] [id number] 05:42:00 Test Item Value Reference Range Interpretation Comments Troponin-I (test code no gt See_Comment [Auto mated message] The = Troponin-I) system which g enerated this result transmit abdelrahman reference range : <=0.40. The reference r annemarie was not used to interpr et this result as gurpreet l/abnormal. [id number] 05:42:00 Test Item Value Reference Range Interpretation Comments HIV Ag/Ab 4th Gen Negative *NA*(04/12/18 (test code = HIV 11:42 PM) Ag/Ab 4th Gen) [facility]2018-12-14 05:42:00 Test Item Value Reference Range Interpretation Comments Troponin-I (test code no gt See_Comment [Auto mated message] The = Troponin-I) system which g enerated this result transmit abdelrahman reference range : <=0.40. The reference r annemarie was not used to interpr et this result as gurpreet l/abnormal. [facility] [id number] 05:42:00 Test Item Value Reference Range Interpretation Comments HIV Ag/Ab 4th Gen Negative *NA*(04/12/18 (test code = HIV 11:42 PM) Ag/Ab 4th Gen) [facility]2018-12-14 05:42:00 Test Item Value Reference Range Interpretation Comments Troponin-I (test code no gt See_Comment [Auto mated message] The = Troponin-I) system which g enerated this result transmit abdelrahman reference range : <=0.40. The reference r annemarie was not used to interpr et this result as gurpreet l/abnormal. [facility] [id number] 05:42:00 Test Item Value Reference Range Interpretation Comments HIV Ag/Ab 4th Gen Negative *NA*(04/12/18 (test code = HIV 11:42 PM) Ag/Ab 4th Gen) [facility]2018-12-14 05:42:00 Test Item Value Reference Range Interpretation Comments Troponin-I (test code no gt See_Comment [Auto mated message] The = Troponin-I) system which g enerated this result transmit abdelrahman reference range : <=0.40. The reference r annemarie was not used to interpr et this result as gurpreet l/abnormal. [facility] [id number] 05:42:00 Test Item Value Reference Range Interpretation Comments HIV Ag/Ab 4th Gen Negative *NA*(04/12/18 (test code = HIV 11:42 PM) Ag/Ab 4th Gen) [facility] [id number] 05:42:00 Test Item Value Reference Range Interpretation Comments Troponin-I (test code no gt See_Comment [Auto mated message] The = Troponin-I) system which g enerated this result transmit abdelrahmna reference range : <=0.40. The reference r annemarie was not used to interpr et this result as gurpreet l/abnormal. [facility] [id number] 05:42:00 Test Item Value Reference Range Interpretation Comments HIV Ag/Ab 4th Gen Negative *NA*(04/12/18 (test code = HIV 11:42 PM) Ag/Ab 4th Gen) [facility] [id number] 05:18:00 Test Item Value Reference Range Interpretation Comments MRSA by PCR (test Negative (04/12/18 11:18 code = MRSA by PCR) PM) [facility] [id number] 05:18:00 Test Item Value Reference Range Interpretation Comments MRSA by PCR (test Negative (04/12/18 11:18 code = MRSA by PCR) PM) [facility] [id number] 05:18:00 Test Item Value Reference Range Interpretation Comments MRSA by PCR (test Negative (04/12/18 11:18 code = MRSA by PCR) PM) [facility] [id number] 05:18:00 Test Item Value Reference Range Interpretation Comments MRSA by PCR (test Negative (04/12/18 11:18 code = MRSA by PCR) PM) [facility] [id number] 05:18:00 Test Item Value Reference Range Interpretation Comments MRSA by PCR (test Negative (04/12/18 11:18 code = MRSA by PCR) PM) [facility] [id number] 05:18:00 Test Item Value Reference Range Interpretation Comments MRSA by PCR (test Negative (04/12/18 11:18 code = MRSA by PCR) PM) [facility] [id number] 05:18:00 Test Item Value Reference Range Interpretation Comments MRSA by PCR (test Negative (04/12/18 11:18 code = MRSA by PCR) PM) [facility] [id number] 05:18:00 Test Item Value Reference Range Interpretation Comments MRSA by PCR (test Negative (04/12/18 11:18 code = MRSA by PCR) PM) [facility] [id number] 23:22:00 Test Item Value Reference Range Interpretation Comments U Odalys Scr (test code Negative *NA*(04/12/18 = U Odlays Scr) 5:22 PM) [facility] [id number] 23:22:00 Test Item Value Reference Range Interpretation Comments U Benzodiaz Scr (test Negative *NA*(04/12/18 code = U Benzodiaz Scr) 5:22 PM) [facility] [id number] 23:22:00 Test Item Value Reference Range Interpretation Comments U Amph Scr (test code Negative *NA*(04/12/18 = U Amph Scr) 5:22 PM) [facility] [id number] 23:22:00 Test Item Value Reference Range Interpretation Comments U Cocaine Scr (test Negative *NA*(04/12/18 code = U Cocaine Scr) 5:22 PM) [facility] [id number] 23:22:00 Test Item Value Reference Range Interpretation Comments U Opiate Scr (test Negative *NA*(04/12/18 code = U Opiate Scr) 5:22 PM) [facility] [id number] 23:22:00 Test Item Value Reference Range Interpretation Comments UDS Note (test code = See Note (04/12/18 5:22 UDS Note) PM) [facility] [id number] 23:22:00 Test Item Value Reference Range Interpretation Comments U Cannab Scr (test Negative *NA*(04/12/18 code = U Cannab Scr) 5:22 PM) [facility] [id number] 23:22:00 Test Item Value Reference Range Interpretation Comments U Phencyclidine Scr (test Negative code = U Phencyclidine *NA*(04/12/18 5:22 Scr) PM) [facility] [id number] 23:22:00 Test Item Value Reference Range Interpretation Comments U Odalys Scr (test code Negative *NA*(04/12/18 = U Odalys Scr) 5:22 PM) [facility] [id number] 23:22:00 Test Item Value Reference Range Interpretation Comments U Benzodiaz Scr (test Negative *NA*(04/12/18 code = U Benzodiaz Scr) 5:22 PM) [facility] [id number] 23:22:00 Test Item Value Reference Range Interpretation Comments U Amph Scr (test code Negative *NA*(04/12/18 = U Amph Scr) 5:22 PM) [facility] [id number] 23:22:00 Test Item Value Reference Range Interpretation Comments U Cocaine Scr (test Negative *NA*(04/12/18 code = U Cocaine Scr) 5:22 PM) [facility] [id number] 23:22:00 Test Item Value Reference Range Interpretation Comments U Opiate Scr (test Negative *NA*(04/12/18 code = U Opiate Scr) 5:22 PM) [facility] [id number] 23:22:00 Test Item Value Reference Range Interpretation Comments UDS Note (test code = See Note (04/12/18 5:22 UDS Note) PM) [facility] [id number] 23:22:00 Test Item Value Reference Range Interpretation Comments U Cannab Scr (test Negative *NA*(04/12/18 code = U Cannab Scr) 5:22 PM) [facility] [id number] 23:22:00 Test Item Value Reference Range Interpretation Comments U Phencyclidine Scr (test Negative code = U Phencyclidine *NA*(04/12/18 5:22 Scr) PM) [facility] [id number] 23:22:00 Test Item Value Reference Range Interpretation Comments U Odalys Scr (test code Negative *NA*(04/12/18 = U Odalys Scr) 5:22 PM) [facility] [id number] 23:22:00 Test Item Value Reference Range Interpretation Comments U Benzodiaz Scr (test Negative *NA*(04/12/18 code = U Benzodiaz Scr) 5:22 PM) [facility] [id number] 23:22:00 Test Item Value Reference Range Interpretation Comments U Amph Scr (test code Negative *NA*(04/12/18 = U Amph Scr) 5:22 PM) [facility] [id number] 23:22:00 Test Item Value Reference Range Interpretation Comments U Cocaine Scr (test Negative *NA*(04/12/18 code = U Cocaine Scr) 5:22 PM) [facility] [id number] 23:22:00 Test Item Value Reference Range Interpretation Comments U Opiate Scr (test Negative *NA*(04/12/18 code = U Opiate Scr) 5:22 PM) [facility] [id number] 23:22:00 Test Item Value Reference Range Interpretation Comments UDS Note (test code = See Note (04/12/18 5:22 UDS Note) PM) [facility] [id number] 23:22:00 Test Item Value Reference Range Interpretation Comments U Cannab Scr (test Negative *NA*(04/12/18 code = U Cannab Scr) 5:22 PM) [facility] [id number] 23:22:00 Test Item Value Reference Range Interpretation Comments U Phencyclidine Scr (test Negative code = U Phencyclidine *NA*(04/12/18 5:22 Scr) PM) [facility] [id number] 23:22:00 Test Item Value Reference Range Interpretation Comments U Odalys Scr (test code Negative *NA*(04/12/18 = U Odalys Scr) 5:22 PM) [facility] [id number] 23:22:00 Test Item Value Reference Range Interpretation Comments U Benzodiaz Scr (test Negative *NA*(04/12/18 code = U Benzodiaz Scr) 5:22 PM) [facility] [id number] 23:22:00 Test Item Value Reference Range Interpretation Comments U Amph Scr (test code Negative *NA*(04/12/18 = U Amph Scr) 5:22 PM) [facility] [id number] 23:22:00 Test Item Value Reference Range Interpretation Comments U Cocaine Scr (test Negative *NA*(04/12/18 code = U Cocaine Scr) 5:22 PM) [facility] [id number] 23:22:00 Test Item Value Reference Range Interpretation Comments U Opiate Scr (test Negative *NA*(04/12/18 code = U Opiate Scr) 5:22 PM) [facility] [id number] 23:22:00 Test Item Value Reference Range Interpretation Comments UDS Note (test code = See Note (04/12/18 5:22 UDS Note) PM) [facility] [id number] 23:22:00 Test Item Value Reference Range Interpretation Comments U Cannab Scr (test Negative *NA*(04/12/18 code = U Cannab Scr) 5:22 PM) [facility] [id number] 23:22:00 Test Item Value Reference Range Interpretation Comments U Phencyclidine Scr (test Negative code = U Phencyclidine *NA*(04/12/18 5:22 Scr) PM) [facility] [id number] 23:22:00 Test Item Value Reference Range Interpretation Comments U Odalys Scr (test code Negative *NA*(04/12/18 = U Odalys Scr) 5:22 PM) [facility] [id number] 23:22:00 Test Item Value Reference Range Interpretation Comments U Benzodiaz Scr (test Negative *NA*(04/12/18 code = U Benzodiaz Scr) 5:22 PM) [facility] [id number] 23:22:00 Test Item Value Reference Range Interpretation Comments U Amph Scr (test code Negative *NA*(04/12/18 = U Amph Scr) 5:22 PM) [facility] [id number] 23:22:00 Test Item Value Reference Range Interpretation Comments U Cocaine Scr (test Negative *NA*(04/12/18 code = U Cocaine Scr) 5:22 PM) [facility] [id number] 23:22:00 Test Item Value Reference Range Interpretation Comments U Opiate Scr (test Negative *NA*(04/12/18 code = U Opiate Scr) 5:22 PM) [facility] [id number] 23:22:00 Test Item Value Reference Range Interpretation Comments UDS Note (test code = See Note (04/12/18 5:22 UDS Note) PM) [facility] [id number] 23:22:00 Test Item Value Reference Range Interpretation Comments U Cannab Scr (test Negative *NA*(04/12/18 code = U Cannab Scr) 5:22 PM) [facility] [id number] 23:22:00 Test Item Value Reference Range Interpretation Comments U Phencyclidine Scr (test Negative code = U Phencyclidine *NA*(04/12/18 5:22 Scr) PM) [facility] [id number] 23:22:00 Test Item Value Reference Range Interpretation Comments U Odalys Scr (test code Negative *NA*(04/12/18 = U Odalys Scr) 5:22 PM) [facility] [id number] 23:22:00 Test Item Value Reference Range Interpretation Comments U Benzodiaz Scr (test Negative *NA*(04/12/18 code = U Benzodiaz Scr) 5:22 PM) [facility] [id number] 23:22:00 Test Item Value Reference Range Interpretation Comments U Amph Scr (test code Negative *NA*(04/12/18 = U Amph Scr) 5:22 PM) [facility] [id number] 23:22:00 Test Item Value Reference Range Interpretation Comments U Cocaine Scr (test Negative *NA*(04/12/18 code = U Cocaine Scr) 5:22 PM) [facility] [id number] 23:22:00 Test Item Value Reference Range Interpretation Comments U Opiate Scr (test Negative *NA*(04/12/18 code = U Opiate Scr) 5:22 PM) [facility] [id number] 23:22:00 Test Item Value Reference Range Interpretation Comments UDS Note (test code = See Note (04/12/18 5:22 UDS Note) PM) [facility] [id number] 23:22:00 Test Item Value Reference Range Interpretation Comments U Cannab Scr (test Negative *NA*(04/12/18 code = U Cannab Scr) 5:22 PM) [facility] [id number] 23:22:00 Test Item Value Reference Range Interpretation Comments U Phencyclidine Scr (test Negative code = U Phencyclidine *NA*(04/12/18 5:22 Scr) PM) [facility] [id number] 23:22:00 Test Item Value Reference Range Interpretation Comments U Odalys Scr (test code Negative *NA*(04/12/18 = U Odalys Scr) 5:22 PM) [facility] [id number] 23:22:00 Test Item Value Reference Range Interpretation Comments U Benzodiaz Scr (test Negative *NA*(04/12/18 code = U Benzodiaz Scr) 5:22 PM) [facility] [id number] 23:22:00 Test Item Value Reference Range Interpretation Comments U Amph Scr (test code Negative *NA*(04/12/18 = U Amph Scr) 5:22 PM) [facility] [id number] 23:22:00 Test Item Value Reference Range Interpretation Comments U Cocaine Scr (test Negative *NA*(04/12/18 code = U Cocaine Scr) 5:22 PM) [facility] [id number] 23:22:00 Test Item Value Reference Range Interpretation Comments U Opiate Scr (test Negative *NA*(04/12/18 code = U Opiate Scr) 5:22 PM) [facility] [id number] 23:22:00 Test Item Value Reference Range Interpretation Comments UDS Note (test code = See Note (04/12/18 5:22 UDS Note) PM) [facility] [id number] 23:22:00 Test Item Value Reference Range Interpretation Comments U Cannab Scr (test Negative *NA*(04/12/18 code = U Cannab Scr) 5:22 PM) [facility] [id number] 23:22:00 Test Item Value Reference Range Interpretation Comments U Phencyclidine Scr (test Negative code = U Phencyclidine *NA*(04/12/18 5:22 Scr) PM) [facility] [id number] 23:22:00 Test Item Value Reference Range Interpretation Comments U Odalys Scr (test code Negative *NA*(04/12/18 = U Odalys Scr) 5:22 PM) [facility] [id number] 23:22:00 Test Item Value Reference Range Interpretation Comments U Benzodiaz Scr (test Negative *NA*(04/12/18 code = U Benzodiaz Scr) 5:22 PM) [facility] [id number] 23:22:00 Test Item Value Reference Range Interpretation Comments U Amph Scr (test code Negative *NA*(04/12/18 = U Amph Scr) 5:22 PM) [facility] [id number] 23:22:00 Test Item Value Reference Range Interpretation Comments U Cocaine Scr (test Negative *NA*(04/12/18 code = U Cocaine Scr) 5:22 PM) [facility] [id number] 23:22:00 Test Item Value Reference Range Interpretation Comments U Opiate Scr (test Negative *NA*(04/12/18 code = U Opiate Scr) 5:22 PM) [facility] [id number] 23:22:00 Test Item Value Reference Range Interpretation Comments UDS Note (test code = See Note (04/12/18 5:22 UDS Note) PM) [facility] [id number] 23:22:00 Test Item Value Reference Range Interpretation Comments U Cannab Scr (test Negative *NA*(04/12/18 code = U Cannab Scr) 5:22 PM) [facility] [id number] 23:22:00 Test Item Value Reference Range Interpretation Comments U Phencyclidine Scr (test Negative code = U Phencyclidine *NA*(04/12/18 5:22 Scr) PM) [facility] [id number] 22:38:00 Test Item Value Reference Range Interpretation Comments Troponin-I (test code 0.02 See_Comment [Auto mated message] The = Troponin-I) system which g enerated this result transmit abdelrahman reference range : <=0.40. The reference r annemarie was not used to interpr et this result as gurpreet l/abnormal. [facility] [id number] 22:38:00 Test Item Value Reference Range Interpretation Comments Total CK (test code = Total CK) 50 12-191 [facility] [id number] 22:38:00 Test Item Value Reference Range Interpretation Comments eGFR (test code = eGFR) 120 [facility] [id number] 22:38:00 Test Item Value Reference Range Interpretation Comments AST (test code = AST) 17 See_Comment [Auto mated message] The system which ge nerated this result transmit abdelrahman reference range : <=37. The reference range was not used to interpr et this result as gurpreet l/abnormal. [facility] [id number] 22:38:00 Test Item Value Reference Range Interpretation Comments ALT (test code = ALT) 23 See_Comment [Auto mated message] The system which ge nerated this result transmit abdelrahman reference range : <=65. The reference range was not used to interpr et this result as gurpreet l/abnormal. [facility]2018-12-13 22:38:00 Test Item Value Reference Range Interpretation Comments Albumin Lvl (test code = Albumin Lvl) 4.0 3.5-5.0 [facility]2018-12-13 22:38:00 Test Item Value Reference Range Interpretation Comments Total Protein (test code = Total 7.4 6.4-8.4 Protein) [facility]2018-12-13 22:38:00 Test Item Value Reference Range Interpretation Comments Bili Total (test code = Bili Total) 0.3 0.2-1.3 [facility]2018-12-13 22:38:00 Test Item Value Reference Range Interpretation Comments Alk Phos (test code = Alk Phos) 35 39-136 [facility]2018-12-13 22:38:00 Test Item Value Reference Range Interpretation Comments Chloride Lvl (test code = Chloride Lvl) 103 95-109 [facility]2018-12-13 22:38:00 Test Item Value Reference Range Interpretation Comments Calcium Lvl (test code = Calcium Lvl) 9.4 8.5-10.5 [facility]2018-12-13 22:38:00 Test Item Value Reference Range Interpretation Comments CO2 (test code = CO2) 32 24-32 [facility]2018-12-13 22:38:00 Test Item Value Reference Range Interpretation Comments Potassium Lvl (test code = Potassium 4.2 3.5-5.1 Lvl) [facility]2018-12-13 22:38:00 Test Item Value Reference Range Interpretation Comments Sodium Lvl (test code = Sodium Lvl) 139 135-145 [facility]2018-12-13 22:38:00 Test Item Value Reference Range Interpretation Comments Creatinine Lvl (test code = Creatinine 0.80 0.50-1.40 Lvl) [facility]2018-12-13 22:38:00 Test Item Value Reference Range Interpretation Comments BUN (test code = BUN) 12 7-22 [facility]2018-12-13 22:38:00 Test Item Value Reference Range Interpretation Comments Glucose Lvl (test code = Glucose Lvl) 93 70-99 [facility]2018-12-13 22:38:00 Test Item Value Reference Range Interpretation Comments A/G Ratio (test code = A/G Ratio) 1.2 1 0.7-1.6 [facility]2018-12-13 22:38:00 Test Item Value Reference Range Interpretation Comments Globulin (test code = Globulin) 3.4 2.7-4.2 [facility]2018-12-13 22:38:00 Test Item Value Reference Range Interpretation Comments B/C Ratio (test code = B/C Ratio) 15 1 6-25 [facility]2018-12-13 22:38:00 Test Item Value Reference Range Interpretation Comments AGAP (test code = AGAP) 8.2 10.0-20.0 [id number] 22:38:00 Test Item Value Reference Range Interpretation Comments MCHC (test code = MCHC) 32.1 32.0-36.0 [facility] Hos[id number] 22:38:00 Test Item Value Reference Range Interpretation Comments MCH (test code = MCH) 27.4 pg 27.0-31.0 [facility] H[id number] 22:38:00 Test Item Value Reference Range Interpretation Comments Platelet (test code = Platelet) 200 133-450 [facility] HospitalHewdkuvRNNQAVEJWO9575-80-30 22:38:00 Test Item Value Reference Range Interpretation Comments RDW (test code = RDW) 14.4 11.5-14.5 [facility] Hospit[id number] 22:38:00 Test Item Value Reference Range Interpretation Comments MPV (test code = MPV) 9.1 7.4-10.4 [facility] HospitalYjxcwsqDQHCXLUPPL8062-18-63 22:38:00 Test Item Value Reference Range Interpretation Comments WBC (test code = WBC) 14.0 3.7-10.4 [facility] Hospit[id number] 22:38:00 Test Item Value Reference Range Interpretation Comments RBC (test code = RBC) 5.18 4.70-6.10 [facility] HospitalWzwkztdAYOGTWLBBS7203-52-61 22:38:00 Test Item Value Reference Range Interpretation Comments Hgb (test code = Hgb) 14.2 14.0-18.0 [facility] HospitalPcqqmotUVFBZLTGVY1416-44-95 22:38:00 Test Item Value Reference Range Interpretation Comments Hct (test code = Hct) 44.2 42.0-54.0 [facility] HospitalEfyxzvyDKTHABKFDB4224-54-32 22:38:00 Test Item Value Reference Range Interpretation Comments MCV (test code = MCV) 85.3 80.0-94.0 [facility] HospitalGpnpgdaYFIOLNQJHF9956-63-96 22:38:00 Test Item Value Reference Range Interpretation Comments Basophils (test code = 0.2 See_Comment [Aut omated message] The Basophils) system which ge nerated this result tra nsmitted reference range : <=1.0. The reference r annemarie was not used to int erpret this result as normal/abnormal . [facility] HospitalBhytfwgNWDFOBNUYV7439-01-97 22:38:00 Test Item Value Reference Range Interpretation Comments Eosinophils (test code = 0.1 See_Comment [A utomated message] The Eosinophils) system which ge nerated this result tra nsmitted reference range : <=4.0. The reference r annemarie was not used to int erpret this result as normal/abnormal . [facility] HospitalBddswyzGNAIGMXXVT3874-09-36 22:38:00 Test Item Value Reference Range Interpretation Comments Monocytes (test code = Monocytes) 2.7 2.0-12.0 [facility] HospitalBbsqmygLZLPMGNXML2683-08-17 22:38:00 Test Item Value Reference Range Interpretation Comments Monocytes # (test code 0.4 See_Comment [Aut omated message] The = Monocytes #) system which generated this result tra nsmitted reference range : <=0.8. The reference r annemarie was not used to int erpret this result as normal/abnormal . [facility] HospitalWczgwxxWKEXSFYCBL8887-59-34 22:38:00 Test Item Value Reference Range Interpretation Comments Lymphocytes # (test code = Lymphocytes 0.6 1.0-5.5 #) [facility] HospitalWpwsibuCJNTWZICDU3205-27-77 22:38:00 Test Item Value Reference Range Interpretation Comments Neutrophils # (test code = Neutrophils 13.0 1.5-8.1 #) [facility] HospitalOnlvuvxVPGYXCEPJG8318-48-89 22:38:00 Test Item Value Reference Range Interpretation Comments Lymphocytes (test code = Lymphocytes) 4.1 20.0-40.0 [facility]FsrorxpZYNNCQVMQM4952-73-24 22:38:00 Test Item Value Reference Range Interpretation Comments Eosinophils # (test code 0.0 See_Comment [A utomated message] The = Eosinophils #) system whic h generated this result tra nsmitted reference range : <=0.5. The reference r annemarie was not used to int erpret this result as normal/abnormal . [facility] HospitalPyorpqzUFLWEZMQST5885-22-48 22:38:00 Test Item Value Reference Range Interpretation Comments Basophils # (test code 0.0 See_Comment [Aut omated message] The = Basophils #) system which generated this result tra nsmitted reference range : <=0.2. The reference r annemarie was not used to int erpret this result as normal/abnormal . [facility] HospitalOwwwnawWRJNVWSZIJ2472-17-06 22:38:00 Test Item Value Reference Range Interpretation Comments RBC Morph (test code = Normal (04/12/18 4:38 RBC Morph) PM) [id number] 22:38:00 Test Item Value Reference Range Interpretation Comments Plt Morph (test code = Normal (04/12/18 4:38 Plt Morph) PM) [facility]WpvdcdoRNJYEDYIDX2171-91-27 22:38:00 Test Item Value Reference Range Interpretation Comments Segs (test code = Segs) 92.9 45.0-75.0 [facility] HospitalUgiizlwGFITPLYNVJ3954-91-16 22:38:00 Test Item Value Reference Range Interpretation Comments Large Plt (test code Moderate *ABN*(04/12/18 = Large Plt) 4:38 PM) [facility] HospitalCARDIAC [id number] 22:38:00 Test Item Value Reference Range Interpretation Comments Troponin-I (test code 0.02 See_Comment [Auto mated message] The = Troponin-I) system which g enerated this result transmit abdelrahman reference range : <=0.40. The reference r annemarie was not used to interpr et this result as gurpreet l/abnormal. [facility] HospitalHive7AC [id number] 22:38:00 Test Item Value Reference Range Interpretation Comments Total CK (test code = Total CK) 50 12-191 [facility] HospitalSpendSmart Payments CompanyCHEM [id number] 22:38:00 Test Item Value Reference Range Interpretation Comments eGFR (test code = eGFR) 120 [facility]2018-12-13 22:38:00 Test Item Value Reference Range Interpretation Comments AST (test code = AST) 17 See_Comment [Auto mated message] The system which ge nerated this result transmit abdelrahman reference range : <=37. The reference range was not used to interpr et this result as gurpreet l/abnormal. [facility]2018-12-13 22:38:00 Test Item Value Reference Range Interpretation Comments ALT (test code = ALT) 23 See_Comment [Auto mated message] The system which ge nerated this result transmit abdelrahman reference range : <=65. The reference range was not used to interpr et this result as gurpreet l/abnormal. [facility]2018-12-13 22:38:00 Test Item Value Reference Range Interpretation Comments Albumin Lvl (test code = Albumin Lvl) 4.0 3.5-5.0 [facility] HospitalFUNGO STUDIOS [id number] 22:38:00 Test Item Value Reference Range Interpretation Comments Total Protein (test code = Total 7.4 6.4-8.4 Protein) [facility]2018-12-13 22:38:00 Test Item Value Reference Range Interpretation Comments Bili Total (test code = Bili Total) 0.3 0.2-1.3 [facility]2018-12-13 22:38:00 Test Item Value Reference Range Interpretation Comments Alk Phos (test code = Alk Phos) 35 39-136 [facility] HospitalFUNGO STUDIOS [id number] 22:38:00 Test Item Value Reference Range Interpretation Comments Chloride Lvl (test code = Chloride Lvl) 103 95-109 [facility]2018-12-13 22:38:00 Test Item Value Reference Range Interpretation Comments Calcium Lvl (test code = Calcium Lvl) 9.4 8.5-10.5 [facility] HospitalFUNGO STUDIOS [id number] 22:38:00 Test Item Value Reference Range Interpretation Comments CO2 (test code = CO2) 32 24-32 [facility]2018-12-13 22:38:00 Test Item Value Reference Range Interpretation Comments Potassium Lvl (test code = Potassium 4.2 3.5-5.1 Lvl) [facility]2018-12-13 22:38:00 Test Item Value Reference Range Interpretation Comments Sodium Lvl (test code = Sodium Lvl) 139 135-145 [facility]2018-12-13 22:38:00 Test Item Value Reference Range Interpretation Comments Creatinine Lvl (test code = Creatinine 0.80 0.50-1.40 Lvl) [facility]2018-12-13 22:38:00 Test Item Value Reference Range Interpretation Comments BUN (test code = BUN) 12 7-22 [facility]2018-12-13 22:38:00 Test Item Value Reference Range Interpretation Comments Glucose Lvl (test code = Glucose Lvl) 93 70-99 [facility]2018-12-13 22:38:00 Test Item Value Reference Range Interpretation Comments A/G Ratio (test code = A/G Ratio) 1.2 1 0.7-1.6 [facility]2018-12-13 22:38:00 Test Item Value Reference Range Interpretation Comments Globulin (test code = Globulin) 3.4 2.7-4.2 [facility]2018-12-13 22:38:00 Test Item Value Reference Range Interpretation Comments B/C Ratio (test code = B/C Ratio) 15 1 6-25 [facility]2018-12-13 22:38:00 Test Item Value Reference Range Interpretation Comments AGAP (test code = AGAP) 8.2 10.0-20.0 [facility] HospitalRuxsryjTCQMLKHQLE5045-98-55 22:38:00 Test Item Value Reference Range Interpretation Comments MCHC (test code = MCHC) 32.1 32.0-36.0 [facility] HospitalIqhlcwpSXTFRYJBIC1757-24-16 22:38:00 Test Item Value Reference Range Interpretation Comments MCH (test code = MCH) 27.4 pg 27.0-31.0 [facility] HospitalNhqukodYCLXZSULUV6741-13-76 22:38:00 Test Item Value Reference Range Interpretation Comments Platelet (test code = Platelet) 200 133-450 [facility] HospitalLryvxxrPYOLRWMEUM3744-42-98 22:38:00 Test Item Value Reference Range Interpretation Comments RDW (test code = RDW) 14.4 11.5-14.5 [facility] HospitalIipuolaJRJKUSNOOF4014-52-71 22:38:00 Test Item Value Reference Range Interpretation Comments MPV (test code = MPV) 9.1 7.4-10.4 [facility] HospitalSikdhxwZYWMOBSWJF5023-90-24 22:38:00 Test Item Value Reference Range Interpretation Comments WBC (test code = WBC) 14.0 3.7-10.4 [facility] HospitalIkvdnauGBIRPSFUGV1274-15-04 22:38:00 Test Item Value Reference Range Interpretation Comments RBC (test code = RBC) 5.18 4.70-6.10 [facility] HospitalUtboglgOOVPHUYWHA8068-52-12 22:38:00 Test Item Value Reference Range Interpretation Comments Hgb (test code = Hgb) 14.2 14.0-18.0 [facility] HospitalMlohpmnPRMIKXMXHV7708-11-61 22:38:00 Test Item Value Reference Range Interpretation Comments Hct (test code = Hct) 44.2 42.0-54.0 [facility] HospitalTharbqwJXOOPSAEOB1847-77-26 22:38:00 Test Item Value Reference Range Interpretation Comments MCV (test code = MCV) 85.3 80.0-94.0 [facility] HospitalQepyphbNOGXVMZGLW2523-57-64 22:38:00 Test Item Value Reference Range Interpretation Comments Basophils (test code = 0.2 See_Comment [Aut omated message] The Basophils) system which ge nerated this result tra nsmitted reference range : <=1.0. The reference r annemarie was not used to int erpret this result as normal/abnormal . [facility] HospitalYkrdetyLTNDCOJEFI8546-09-30 22:38:00 Test Item Value Reference Range Interpretation Comments Eosinophils (test code = 0.1 See_Comment [A utomated message] The Eosinophils) system which ge nerated this result tra nsmitted reference range : <=4.0. The reference r annemarie was not used to int erpret this result as normal/abnormal . [facility] HospitalSyqmdziKYEPZMMISN7926-59-14 22:38:00 Test Item Value Reference Range Interpretation Comments Monocytes (test code = Monocytes) 2.7 2.0-12.0 [facility] HospitalOhkvqepCRBYMXACBP9660-35-31 22:38:00 Test Item Value Reference Range Interpretation Comments Monocytes # (test code 0.4 See_Comment [Aut omated message] The = Monocytes #) system which generated this result tra nsmitted reference range : <=0.8. The reference r annemarie was not used to int erpret this result as normal/abnormal . [facility] HospitalOpiagjuZTKOPEXIVE5434-63-38 22:38:00 Test Item Value Reference Range Interpretation Comments Lymphocytes # (test code = Lymphocytes 0.6 1.0-5.5 #) [facility] HospitalNdaurntJGTTUHLBWE3337-13-40 22:38:00 Test Item Value Reference Range Interpretation Comments Neutrophils # (test code = Neutrophils 13.0 1.5-8.1 #) [facility] HospitalSrgyvmvASJVHXFVFZ7604-03-39 22:38:00 Test Item Value Reference Range Interpretation Comments Lymphocytes (test code = Lymphocytes) 4.1 20.0-40.0 [facility] HospitalLtobsfoCUTDEYDHOQ9063-64-77 22:38:00 Test Item Value Reference Range Interpretation Comments Eosinophils # (test code 0.0 See_Comment [A utomated message] The = Eosinophils #) system whic h generated this result tra nsmitted reference range : <=0.5. The reference r annemarie was not used to int erpret this result as normal/abnormal . [facility] HospitalGrrnectIAHWQNKSVC6740-97-94 22:38:00 Test Item Value Reference Range Interpretation Comments Basophils # (test code 0.0 See_Comment [Aut omated message] The = Basophils #) system which generated this result tra nsmitted reference range : <=0.2. The reference r annemarie was not used to int erpret this result as normal/abnormal . [facility] HospitalDfijlhxLOEWWKCOTV6728-10-14 22:38:00 Test Item Value Reference Range Interpretation Comments RBC Morph (test code = Normal (04/12/18 4:38 RBC Morph) PM) [facility] HospitalDxnkvmiONRTOIUPHK6395-96-44 22:38:00 Test Item Value Reference Range Interpretation Comments Plt Morph (test code = Normal (04/12/18 4:38 Plt Morph) PM) [facility] HospitalWittjjqAJBZDOGWII6552-00-37 22:38:00 Test Item Value Reference Range Interpretation Comments Segs (test code = Segs) 92.9 45.0-75.0 [facility] HospitalYdwbpujFYKADUYTRQ4845-58-93 22:38:00 Test Item Value Reference Range Interpretation Comments Large Plt (test code Moderate *ABN*(04/12/18 = Large Plt) 4:38 PM) [facility]2018-12-13 22:38:00 Test Item Value Reference Range Interpretation Comments Troponin-I (test code 0.02 See_Comment [Auto mated message] The = Troponin-I) system which g enerated this result transmit abdelrahman reference range : <=0.40. The reference r annemarie was not used to interpr et this result as gurpreet l/abnormal. [facility]CARD[facility] [id number] 22:38:00 Test Item Value Reference Range Interpretation Comments Total CK (test code = Total CK) 50 12-191 [facility] [id number] 22:38:00 Test Item Value Reference Range Interpretation Comments eGFR (test code = eGFR) 120 [facility] [id number] 22:38:00 Test Item Value Reference Range Interpretation Comments AST (test code = AST) 17 See_Comment [Auto mated message] The system which ge nerated this result transmit abdelrahman reference range : <=37. The reference range was not used to interpr et this result as gurpreet l/abnormal. [facility] [id number] 22:38:00 Test Item Value Reference Range Interpretation Comments ALT (test code = ALT) 23 See_Comment [Auto mated message] The system which ge nerated this result transmit abdelrahman reference range : <=65. The reference range was not used to interpr et this result as gurpreet l/abnormal. [facility] [id number] 22:38:00 Test Item Value Reference Range Interpretation Comments Albumin Lvl (test code = Albumin Lvl) 4.0 3.5-5.0 [facility] [id number] 22:38:00 Test Item Value Reference Range Interpretation Comments Total Protein (test code = Total 7.4 6.4-8.4 Protein) [facility] [id number] 22:38:00 Test Item Value Reference Range Interpretation Comments Bili Total (test code = Bili Total) 0.3 0.2-1.3 [facility] [id number] 22:38:00 Test Item Value Reference Range Interpretation Comments Alk Phos (test code = Alk Phos) 35 39-136 [facility] [id number] 22:38:00 Test Item Value Reference Range Interpretation Comments Chloride Lvl (test code = Chloride Lvl) 103 95-109 [facility] [id number] 22:38:00 Test Item Value Reference Range Interpretation Comments Calcium Lvl (test code = Calcium Lvl) 9.4 8.5-10.5 [facility]2018-12-13 22:38:00 Test Item Value Reference Range Interpretation Comments CO2 (test code = CO2) 32 24-32 [facility]2018-12-13 22:38:00 Test Item Value Reference Range Interpretation Comments Potassium Lvl (test code = Potassium 4.2 3.5-5.1 Lvl) [facility]2018-12-13 22:38:00 Test Item Value Reference Range Interpretation Comments Sodium Lvl (test code = Sodium Lvl) 139 135-145 [facility]2018-12-13 22:38:00 Test Item Value Reference Range Interpretation Comments Creatinine Lvl (test code = Creatinine 0.80 0.50-1.40 Lvl) [facility]2018-12-13 22:38:00 Test Item Value Reference Range Interpretation Comments BUN (test code = BUN) 12 7-22 [facility]2018-12-13 22:38:00 Test Item Value Reference Range Interpretation Comments Glucose Lvl (test code = Glucose Lvl) 93 70-99 [facility]2018-12-13 22:38:00 Test Item Value Reference Range Interpretation Comments A/G Ratio (test code = A/G Ratio) 1.2 1 0.7-1.6 [facility]2018-12-13 22:38:00 Test Item Value Reference Range Interpretation Comments Globulin (test code = Globulin) 3.4 2.7-4.2 [facility]2018-12-13 22:38:00 Test Item Value Reference Range Interpretation Comments B/C Ratio (test code = B/C Ratio) 15 1 6-25 [facility]2018-12-13 22:38:00 Test Item Value Reference Range Interpretation Comments AGAP (test code = AGAP) 8.2 10.0-20.0 [facility]TzbmjbhKFSPZFNOME5045-46-54 22:38:00 Test Item Value Reference Range Interpretation Comments MCHC (test code = MCHC) 32.1 32.0-36.0 [facility] HospitalXstyomrZZZFAUKFRW6782-51-63 22:38:00 Test Item Value Reference Range Interpretation Comments MCH (test code = MCH) 27.4 pg 27.0-31.0 [facility] HospitalFndbmugOFHOIDGIOC0298-82-90 22:38:00 Test Item Value Reference Range Interpretation Comments Platelet (test code = Platelet) 200 133-450 [facility] HospitalEguygflVTYJSXDLBI9849-97-96 22:38:00 Test Item Value Reference Range Interpretation Comments RDW (test code = RDW) 14.4 11.5-14.5 [facility] HospitalLopxcovGHGFVHUUZC9232-55-93 22:38:00 Test Item Value Reference Range Interpretation Comments MPV (test code = MPV) 9.1 7.4-10.4 [facility] HospitalNxmrqznDXZXIASQUV5504-18-49 22:38:00 Test Item Value Reference Range Interpretation Comments WBC (test code = WBC) 14.0 3.7-10.4 [facility] HospitalExtrhkzWQJOEQFRZE5856-39-56 22:38:00 Test Item Value Reference Range Interpretation Comments RBC (test code = RBC) 5.18 4.70-6.10 [facility] HospitalBdbxfeyTCRMPNASCG4666-47-71 22:38:00 Test Item Value Reference Range Interpretation Comments Hgb (test code = Hgb) 14.2 14.0-18.0 [facility] HospitalBhfaajtNXZJUZFAOM5567-36-83 22:38:00 Test Item Value Reference Range Interpretation Comments Hct (test code = Hct) 44.2 42.0-54.0 [facility] HospitalOlfhmkeRHVXCROPIJ4221-15-32 22:38:00 Test Item Value Reference Range Interpretation Comments MCV (test code = MCV) 85.3 80.0-94.0 [facility] HospitalIcmjimkGMXTHDKAJB9895-15-44 22:38:00 Test Item Value Reference Range Interpretation Comments Basophils (test code = 0.2 See_Comment [Aut omated message] The Basophils) system which ge nerated this result tra nsmitted reference range : <=1.0. The reference r annemarie was not used to int erpret this result as normal/abnormal . [place] [address]-12-13 22:38:00 Test Item Value Reference Range Interpretation Comments Eosinophils (test code = 0.1 See_Comment [A utomated message] The Eosinophils) system which ge nerated this result tra nsmitted reference range : <=4.0. The reference r annemarie was not used to int erpret this result as normal/abnormal . [facility] HospitalFluyjbjXSDMDKLEUZ1464-66-73 22:38:00 Test Item Value Reference Range Interpretation Comments Monocytes (test code = Monocytes) 2.7 2.0-12.0 [facility] HospitalFfnzdcvFKRACGBYNL4407-79-23 22:38:00 Test Item Value Reference Range Interpretation Comments Monocytes # (test code 0.4 See_Comment [Aut omated message] The = Monocytes #) system which generated this result tra nsmitted reference range : <=0.8. The reference r annemarie was not used to int erpret this result as normal/abnormal . [facility] HospitalNvfcrdoIFTGYLMXRT9174-28-90 22:38:00 Test Item Value Reference Range Interpretation Comments Lymphocytes # (test code = Lymphocytes 0.6 1.0-5.5 #) [facility] HospitalBfxbzbaRMQPTXHYBF7984-75-04 22:38:00 Test Item Value Reference Range Interpretation Comments Neutrophils # (test code = Neutrophils 13.0 1.5-8.1 #) [facility] HospitalOdupkimGFLUAJOVVD0664-89-24 22:38:00 Test Item Value Reference Range Interpretation Comments Lymphocytes (test code = Lymphocytes) 4.1 20.0-40.0 [facility] HospitalQgpklyrEIJQBRWDRH9101-70-27 22:38:00 Test Item Value Reference Range Interpretation Comments Eosinophils # (test code 0.0 See_Comment [A utomated message] The = Eosinophils #) system whic h generated this result tra nsmitted reference range : <=0.5. The reference r annemarie was not used to int erpret this result as normal/abnormal . [facility] HospitalEqigdebPELZBJBQAV4501-33-48 22:38:00 Test Item Value Reference Range Interpretation Comments Basophils # (test code 0.0 See_Comment [Aut omated message] The = Basophils #) system which generated this result tra nsmitted reference range : <=0.2. The reference r annemarie was not used to int erpret this result as normal/abnormal . [facility] HospitalEirfrpiXHOYDAEVNG7348-81-35 22:38:00 Test Item Value Reference Range Interpretation Comments RBC Morph (test code = Normal (04/12/18 4:38 RBC Morph) PM) [facility] HospitalNkvvnkaPMGBFDBIJN0632-16-43 22:38:00 Test Item Value Reference Range Interpretation Comments Plt Morph (test code = Normal (04/12/18 4:38 Plt Morph) PM) [facility] HospitalGwmqnojHHMSVIBFYV6736-01-91 22:38:00 Test Item Value Reference Range Interpretation Comments Segs (test code = Segs) 92.9 45.0-75.0 [facility] HospitalZdctlmmZGZFNWAVHG1044-37-71 22:38:00 Test Item Value Reference Range Interpretation Comments Large Plt (test code Moderate *ABN*(04/12/18 = Large Plt) 4:38 PM) [facility] [id number] 22:38:00 Test Item Value Reference Range Interpretation Comments Troponin-I (test code 0.02 See_Comment [Auto mated message] The = Troponin-I) system which g enerated this result transmit abdelrahman reference range : <=0.40. The reference r annemarie was not used to interpr et this result as gurpreet l/abnormal. [facility] [id number] 22:38:00 Test Item Value Reference Range Interpretation Comments Total CK (test code = Total CK) 50 12-191 [facility] [id number] 22:38:00 Test Item Value Reference Range Interpretation Comments eGFR (test code = eGFR) 120 [facility] [id number] 22:38:00 Test Item Value Reference Range Interpretation Comments AST (test code = AST) 17 See_Comment [Auto mated message] The system which ge nerated this result transmit abdelrahman reference range : <=37. The reference range was not used to interpr et this result as gurpreet l/abnormal. [facility] [id number] 22:38:00 Test Item Value Reference Range Interpretation Comments ALT (test code = ALT) 23 See_Comment [Auto mated message] The system which ge nerated this result transmit abdelrahman reference range : <=65. The reference range was not used to interpr et this result as gurpreet l/abnormal. [facility] [id number] 22:38:00 Test Item Value Reference Range Interpretation Comments Albumin Lvl (test code = Albumin Lvl) 4.0 3.5-5.0 [facility] [id number] 22:38:00 Test Item Value Reference Range Interpretation Comments Total Protein (test code = Total 7.4 6.4-8.4 Protein) [facility] [id number] 22:38:00 Test Item Value Reference Range Interpretation Comments Bili Total (test code = Bili Total) 0.3 0.2-1.3 [facility]2018-12-13 22:38:00 Test Item Value Reference Range Interpretation Comments Alk Phos (test code = Alk Phos) 35 39-136 [facility]2018-12-13 22:38:00 Test Item Value Reference Range Interpretation Comments Chloride Lvl (test code = Chloride Lvl) 103 95-109 [facility]2018-12-13 22:38:00 Test Item Value Reference Range Interpretation Comments Calcium Lvl (test code = Calcium Lvl) 9.4 8.5-10.5 [facility]2018-12-13 22:38:00 Test Item Value Reference Range Interpretation Comments CO2 (test code = CO2) 32 24-32 [facility]2018-12-13 22:38:00 Test Item Value Reference Range Interpretation Comments Potassium Lvl (test code = Potassium 4.2 3.5-5.1 Lvl) [facility]2018-12-13 22:38:00 Test Item Value Reference Range Interpretation Comments Sodium Lvl (test code = Sodium Lvl) 139 135-145 [facility]2018-12-13 22:38:00 Test Item Value Reference Range Interpretation Comments Creatinine Lvl (test code = Creatinine 0.80 0.50-1.40 Lvl) [facility]2018-12-13 22:38:00 Test Item Value Reference Range Interpretation Comments BUN (test code = BUN) 12 7-22 [facility]2018-12-13 22:38:00 Test Item Value Reference Range Interpretation Comments Glucose Lvl (test code = Glucose Lvl) 93 70-99 [facility]2018-12-13 22:38:00 Test Item Value Reference Range Interpretation Comments A/G Ratio (test code = A/G Ratio) 1.2 1 0.7-1.6 [facility]2018-12-13 22:38:00 Test Item Value Reference Range Interpretation Comments Globulin (test code = Globulin) 3.4 2.7-4.2 [facility]2018-12-13 22:38:00 Test Item Value Reference Range Interpretation Comments B/C Ratio (test code = B/C Ratio) 15 1 6-25 [facility]2018-12-13 22:38:00 Test Item Value Reference Range Interpretation Comments AGAP (test code = AGAP) 8.2 10.0-20.0 [facility] HospitalQjdyoypBKYWJWRTJQ9196-52-58 22:38:00 Test Item Value Reference Range Interpretation Comments MCHC (test code = MCHC) 32.1 32.0-36.0 [facility] HospitalKedljjsUTWGLXPNZZ8173-92-25 22:38:00 Test Item Value Reference Range Interpretation Comments MCH (test code = MCH) 27.4 pg 27.0-31.0 [facility] HospitalHnqlfrcWLNAYZPSBI9972-80-76 22:38:00 Test Item Value Reference Range Interpretation Comments Platelet (test code = Platelet) 200 133-450 [facility] HospitalVmrwxwhDMEPXPQKYI7589-36-69 22:38:00 Test Item Value Reference Range Interpretation Comments RDW (test code = RDW) 14.4 11.5-14.5 [facility] HospitalMxbwrqaWQWNTTYOIB5493-45-79 22:38:00 Test Item Value Reference Range Interpretation Comments MPV (test code = MPV) 9.1 7.4-10.4 [facility] HospitalNvtgvylACWLRQGWHH7242-17-10 22:38:00 Test Item Value Reference Range Interpretation Comments WBC (test code = WBC) 14.0 3.7-10.4 [facility] HospitalNnwdiewHTEKFZVNAL1224-51-65 22:38:00 Test Item Value Reference Range Interpretation Comments RBC (test code = RBC) 5.18 4.70-6.10 [facility] HospitalNcxtqtcRWCMPKIGAI2435-27-79 22:38:00 Test Item Value Reference Range Interpretation Comments Hgb (test code = Hgb) 14.2 14.0-18.0 [facility] HospitalBqzfpwhBOXMEYKPWP1835-71-91 22:38:00 Test Item Value Reference Range Interpretation Comments Hct (test code = Hct) 44.2 42.0-54.0 [facility] HospitalVxaqyojFCROGRBYJK6065-46-55 22:38:00 Test Item Value Reference Range Interpretation Comments MCV (test code = MCV) 85.3 80.0-94.0 [facility] HospitalQzwfefjPKGRLOBAPR6307-98-11 22:38:00 Test Item Value Reference Range Interpretation Comments Basophils (test code = 0.2 See_Comment [Aut omated message] The Basophils) system which ge nerated this result tra nsmitted reference range : <=1.0. The reference r annemarie was not used to int erpret this result as normal/abnormal . [facility] HospitalAfvsycvIYDVVQVIRE9887-92-25 22:38:00 Test Item Value Reference Range Interpretation Comments Eosinophils (test code = 0.1 See_Comment [A utomated message] The Eosinophils) system which ge nerated this result tra nsmitted reference range : <=4.0. The reference r anenmarie was not used to int erpret this result as normal/abnormal . [facility] HospitalJqyswmbZLGDFVEFNP7963-79-19 22:38:00 Test Item Value Reference Range Interpretation Comments Monocytes (test code = Monocytes) 2.7 2.0-12.0 [facility] HospitalXmjwwfeCLRETZKAOL4082-06-84 22:38:00 Test Item Value Reference Range Interpretation Comments Monocytes # (test code 0.4 See_Comment [Aut omated message] The = Monocytes #) system which generated this result tra nsmitted reference range : <=0.8. The reference r annemarie was not used to int erpret this result as normal/abnormal . [facility] HospitalEafwqjaRUXKAHTVUZ0650-13-39 22:38:00 Test Item Value Reference Range Interpretation Comments Lymphocytes # (test code = Lymphocytes 0.6 1.0-5.5 #) [facility] HospitalDbaentmGRBPZGHNHZ9241-33-80 22:38:00 Test Item Value Reference Range Interpretation Comments Neutrophils # (test code = Neutrophils 13.0 1.5-8.1 #) [facility] HospitalChicsgfTSDUGAMDUF0424-36-94 22:38:00 Test Item Value Reference Range Interpretation Comments Lymphocytes (test code = Lymphocytes) 4.1 20.0-40.0 [facility] HospitalIqutvzrKMXOCNROIQ3596-52-39 22:38:00 Test Item Value Reference Range Interpretation Comments Eosinophils # (test code 0.0 See_Comment [A utomated message] The = Eosinophils #) system whic h generated this result tra nsmitted reference range : <=0.5. The reference r annemarie was not used to int erpret this result as normal/abnormal . [facility] HospitalWugjszvOLMVQFSZKB0514-68-86 22:38:00 Test Item Value Reference Range Interpretation Comments Basophils # (test code 0.0 See_Comment [Aut omated message] The = Basophils #) system which generated this result tra nsmitted reference range : <=0.2. The reference r annemarie was not used to int erpret this result as normal/abnormal . [facility] HospitalQxtfncgYWTKAGQDNE5037-43-25 22:38:00 Test Item Value Reference Range Interpretation Comments RBC Morph (test code = Normal (04/12/18 4:38 RBC Morph) PM) [facility] HospitalEwqopanKPXDGGBZYX4738-42-68 22:38:00 Test Item Value Reference Range Interpretation Comments Plt Morph (test code = Normal (04/12/18 4:38 Plt Morph) PM) [facility]mzqpahBYQIRMIYOJ4330-91-57 22:38:00 Test Item Value Reference Range Interpretation Comments Segs (test code = Segs) 92.9 45.0-75.0 [facility] HospitalHgyepskEKDCOPVBMJ8420-55-84 22:38:00 Test Item Value Reference Range Interpretation Comments Large Plt (test code Moderate *ABN*(04/12/18 = Large Plt) 4:38 PM) [facility]Ab[facility] [id number] 22:38:00 Test Item Value Reference Range Interpretation Comments Troponin-I (test code 0.02 See_Comment [Auto mated message] The = Troponin-I) system which g enerated this result transmit abdelrahman reference range : <=0.40. The reference r annemarie was not used to interpr et this result as gurpreet l/abnormal. [facility] [id number] 22:38:00 Test Item Value Reference Range Interpretation Comments Total CK (test code = Total CK) 50 12-191 [facility]PDD GroupRIUGW2138-60-81 22:38:00 Test Item Value Reference Range Interpretation Comments eGFR (test code = eGFR) 120 [facility]2018-12-13 22:38:00 Test Item Value Reference Range Interpretation Comments AST (test code = AST) 17 See_Comment [Auto mated message] The system which ge nerated this result transmit abdelrahman reference range : <=37. The reference range was not used to interpr et this result as gurpreet l/abnormal. [facility] HospitalPDD GroupOLFMS1538-29-99 22:38:00 Test Item Value Reference Range Interpretation Comments ALT (test code = ALT) 23 See_Comment [Auto mated message] The system which ge nerated this result transmit abdelrahman reference range : <=65. The reference range was not used to interpr et this result as gurpreet l/abnormal. [facility]2018-12-13 22:38:00 Test Item Value Reference Range Interpretation Comments Albumin Lvl (test code = Albumin Lvl) 4.0 3.5-5.0 [facility]2018-12-13 22:38:00 Test Item Value Reference Range Interpretation Comments Total Protein (test code = Total 7.4 6.4-8.4 Protein) [facility]2018-12-13 22:38:00 Test Item Value Reference Range Interpretation Comments Bili Total (test code = Bili Total) 0.3 0.2-1.3 [facility]2018-12-13 22:38:00 Test Item Value Reference Range Interpretation Comments Alk Phos (test code = Alk Phos) 35 39-136 [facility]2018-12-13 22:38:00 Test Item Value Reference Range Interpretation Comments Chloride Lvl (test code = Chloride Lvl) 103 95-109 [facility]2018-12-13 22:38:00 Test Item Value Reference Range Interpretation Comments Calcium Lvl (test code = Calcium Lvl) 9.4 8.5-10.5 [facility]2018-12-13 22:38:00 Test Item Value Reference Range Interpretation Comments CO2 (test code = CO2) 32 24-32 [facility]2018-12-13 22:38:00 Test Item Value Reference Range Interpretation Comments Potassium Lvl (test code = Potassium 4.2 3.5-5.1 Lvl) [facility]2018-12-13 22:38:00 Test Item Value Reference Range Interpretation Comments Sodium Lvl (test code = Sodium Lvl) 139 135-145 [facility]2018-12-13 22:38:00 Test Item Value Reference Range Interpretation Comments Creatinine Lvl (test code = Creatinine 0.80 0.50-1.40 Lvl) [facility]2018-12-13 22:38:00 Test Item Value Reference Range Interpretation Comments BUN (test code = BUN) 12 7-22 [facility]2018-12-13 22:38:00 Test Item Value Reference Range Interpretation Comments Glucose Lvl (test code = Glucose Lvl) 93 70-99 [facility]2018-12-13 22:38:00 Test Item Value Reference Range Interpretation Comments A/G Ratio (test code = A/G Ratio) 1.2 1 0.7-1.6 [facility]2018-12-13 22:38:00 Test Item Value Reference Range Interpretation Comments Globulin (test code = Globulin) 3.4 2.7-4.2 [facility]2018-12-13 22:38:00 Test Item Value Reference Range Interpretation Comments B/C Ratio (test code = B/C Ratio) 15 1 6-25 [facility]2018-12-13 22:38:00 Test Item Value Reference Range Interpretation Comments AGAP (test code = AGAP) 8.2 10.0-20.0 [facility] HospitalJyrnspkQHDMGUYHOR3120-16-44 22:38:00 Test Item Value Reference Range Interpretation Comments MCHC (test code = MCHC) 32.1 32.0-36.0 [facility] HospitalCmaugleZLOWTIBXMF0597-52-85 22:38:00 Test Item Value Reference Range Interpretation Comments MCH (test code = MCH) 27.4 pg 27.0-31.0 [facility] HospitalVrjnwjxMMGRPJSIGZ9821-07-72 22:38:00 Test Item Value Reference Range Interpretation Comments Platelet (test code = Platelet) 200 133-450 [facility] HospitalYilbuzxWCEYUWFEVT2119-47-54 22:38:00 Test Item Value Reference Range Interpretation Comments RDW (test code = RDW) 14.4 11.5-14.5 [facility] HospitalEwwaxioYGIDBRCTEN3427-01-19 22:38:00 Test Item Value Reference Range Interpretation Comments MPV (test code = MPV) 9.1 7.4-10.4 [facility] HospitalTsxighkZIRJZJQUHZ4892-58-44 22:38:00 Test Item Value Reference Range Interpretation Comments WBC (test code = WBC) 14.0 3.7-10.4 [facility] HospitalOfuxjpmFRIXAKPEUI9132-24-80 22:38:00 Test Item Value Reference Range Interpretation Comments RBC (test code = RBC) 5.18 4.70-6.10 [facility] HospitalCwrddmtFLVEPTBULF6910-99-76 22:38:00 Test Item Value Reference Range Interpretation Comments Hgb (test code = Hgb) 14.2 14.0-18.0 [facility] HospitalUcrylpyEWQKKFWLIK7536-27-14 22:38:00 Test Item Value Reference Range Interpretation Comments Hct (test code = Hct) 44.2 42.0-54.0 [facility] HospitalPhwrxunWYDDJJWBPP5309-61-58 22:38:00 Test Item Value Reference Range Interpretation Comments MCV (test code = MCV) 85.3 80.0-94.0 [facility] HospitalLapxnjbTBZICWFXRQ8078-53-25 22:38:00 Test Item Value Reference Range Interpretation Comments Basophils (test code = 0.2 See_Comment [Aut omated message] The Basophils) system which ge nerated this result tra nsmitted reference range : <=1.0. The reference r annemarie was not used to int erpret this result as normal/abnormal . [facility] HospitalParzczcNNVZIHQZTV3360-06-99 22:38:00 Test Item Value Reference Range Interpretation Comments Eosinophils (test code = 0.1 See_Comment [A utomated message] The Eosinophils) system which ge nerated this result tra nsmitted reference range : <=4.0. The reference r annemarie was not used to int erpret this result as normal/abnormal . [facility] HospitalPhfxaogSOUVPQJPED1132-57-72 22:38:00 Test Item Value Reference Range Interpretation Comments Monocytes (test code = Monocytes) 2.7 2.0-12.0 [facility] HospitalCulynyeQMBTKPZJSI2238-24-13 22:38:00 Test Item Value Reference Range Interpretation Comments Monocytes # (test code 0.4 See_Comment [Aut omated message] The = Monocytes #) system which generated this result tra nsmitted reference range : <=0.8. The reference r annemarie was not used to int erpret this result as normal/abnormal . [facility] HospitalSiijuxxEWZDCRJDFQ0537-01-78 22:38:00 Test Item Value Reference Range Interpretation Comments Lymphocytes # (test code = Lymphocytes 0.6 1.0-5.5 #) [facility] HospitalMknxxtlTMUQQUHEKH5789-71-34 22:38:00 Test Item Value Reference Range Interpretation Comments Neutrophils # (test code = Neutrophils 13.0 1.5-8.1 #) [facility] HospitalOknxamqCIQPDXOKGP1423-23-76 22:38:00 Test Item Value Reference Range Interpretation Comments Lymphocytes (test code = Lymphocytes) 4.1 20.0-40.0 [facility] HospitalEzwudcoTBQFKTNLYW7407-68-73 22:38:00 Test Item Value Reference Range Interpretation Comments Eosinophils # (test code 0.0 See_Comment [A utomated message] The = Eosinophils #) system whic h generated this result tra nsmitted reference range : <=0.5. The reference r annemarie was not used to int erpret this result as normal/abnormal . [facility] HospitalBxpofrfIVHMHUCLUR0582-61-62 22:38:00 Test Item Value Reference Range Interpretation Comments Basophils # (test code 0.0 See_Comment [Aut omated message] The = Basophils #) system which generated this result tra nsmitted reference range : <=0.2. The reference r annemarie was not used to int erpret this result as normal/abnormal . [facility] HospitalYmruvijQYMIEHBKDU7733-19-65 22:38:00 Test Item Value Reference Range Interpretation Comments RBC Morph (test code = Normal (04/12/18 4:38 RBC Morph) PM) [facility]QernjegWDLRDPDNEM7144-97-91 22:38:00 Test Item Value Reference Range Interpretation Comments Plt Morph (test code = Normal (04/12/18 4:38 Plt Morph) PM) [facility] HospitalRtehzdaXGVWNCGTXC3437-30-89 22:38:00 Test Item Value Reference Range Interpretation Comments Segs (test code = Segs) 92.9 45.0-75.0 [facility] HospitalFmsrxtpYQAYBEUNTC5048-77-20 22:38:00 Test Item Value Reference Range Interpretation Comments Large Plt (test code Moderate *ABN*(04/12/18 = Large Plt) 4:38 PM) [facility] [employer]-12-13 22:38:00 Test Item Value Reference Range Interpretation Comments Troponin-I (test code 0.02 See_Comment [Auto mated message] The = Troponin-I) system which g enerated this result transmit abdelrahman reference range : <=0.40. The reference r annemarie was not used to interpr et this result as gurpreet l/abnormal. [facility]2018-12-13 22:38:00 Test Item Value Reference Range Interpretation Comments Total CK (test code = Total CK) 50 12-191 [facility]ua[facility] Dache [id number] 22:38:00 Test Item Value Reference Range Interpretation Comments eGFR (test code = eGFR) 120 [facility] Kua[employer] Dache [id number] 22:38:00 Test Item Value Reference Range Interpretation Comments AST (test code = AST) 17 See_Comment [Auto mated message] The system which ge nerated this result transmit abdelrahman reference range : <=37. The reference range was not used to interpr et this result as gurpreet l/abnormal. [facility]2018-12-13 22:38:00 Test Item Value Reference Range Interpretation Comments ALT (test code = ALT) 23 See_Comment [Auto mated message] The system which ge nerated this result transmit abdelrahman reference range : <=65. The reference range was not used to interpr et this result as gurpreet l/abnormal. [facility]2018-12-13 22:38:00 Test Item Value Reference Range Interpretation Comments Albumin Lvl (test code = Albumin Lvl) 4.0 3.5-5.0 [facility]2018-12-13 22:38:00 Test Item Value Reference Range Interpretation Comments Total Protein (test code = Total 7.4 6.4-8.4 Protein) [facility]2018-12-13 22:38:00 Test Item Value Reference Range Interpretation Comments Bili Total (test code = Bili Total) 0.3 0.2-1.3 [facility]2018-12-13 22:38:00 Test Item Value Reference Range Interpretation Comments Alk Phos (test code = Alk Phos) 35 39-136 [facility]2018-12-13 22:38:00 Test Item Value Reference Range Interpretation Comments Chloride Lvl (test code = Chloride Lvl) 103 95-109 [facility]2018-12-13 22:38:00 Test Item Value Reference Range Interpretation Comments Calcium Lvl (test code = Calcium Lvl) 9.4 8.5-10.5 [facility]2018-12-13 22:38:00 Test Item Value Reference Range Interpretation Comments CO2 (test code = CO2) 32 24-32 [facility]2018-12-13 22:38:00 Test Item Value Reference Range Interpretation Comments Potassium Lvl (test code = Potassium 4.2 3.5-5.1 Lvl) [facility]2018-12-13 22:38:00 Test Item Value Reference Range Interpretation Comments Sodium Lvl (test code = Sodium Lvl) 139 135-145 [facility]2018-12-13 22:38:00 Test Item Value Reference Range Interpretation Comments Creatinine Lvl (test code = Creatinine 0.80 0.50-1.40 Lvl) [facility]2018-12-13 22:38:00 Test Item Value Reference Range Interpretation Comments BUN (test code = BUN) 12 7-22 [facility]2018-12-13 22:38:00 Test Item Value Reference Range Interpretation Comments Glucose Lvl (test code = Glucose Lvl) 93 70-99 [facility]2018-12-13 22:38:00 Test Item Value Reference Range Interpretation Comments A/G Ratio (test code = A/G Ratio) 1.2 1 0.7-1.6 [facility]2018-12-13 22:38:00 Test Item Value Reference Range Interpretation Comments Globulin (test code = Globulin) 3.4 2.7-4.2 [facility]2018-12-13 22:38:00 Test Item Value Reference Range Interpretation Comments B/C Ratio (test code = B/C Ratio) 15 1 6-25 [facility]2018-12-13 22:38:00 Test Item Value Reference Range Interpretation Comments AGAP (test code = AGAP) 8.2 10.0-20.0 [facility]UmnrjcjHGBULZKGAE8331-08-52 22:38:00 Test Item Value Reference Range Interpretation Comments MCHC (test code = MCHC) 32.1 32.0-36.0 [facility] HospitalBxdgdwxVSKSYTUSVM2887-57-33 22:38:00 Test Item Value Reference Range Interpretation Comments MCH (test code = MCH) 27.4 pg 27.0-31.0 [facility] HospitalUhxmogzJWIXXAKHZO2189-43-46 22:38:00 Test Item Value Reference Range Interpretation Comments Platelet (test code = Platelet) 200 133-450 [facility] HospitalDbpwoauDNPSSLURWX2050-18-12 22:38:00 Test Item Value Reference Range Interpretation Comments RDW (test code = RDW) 14.4 11.5-14.5 [facility] HospitalPudkmfaNLGYTKYJJF2095-05-17 22:38:00 Test Item Value Reference Range Interpretation Comments MPV (test code = MPV) 9.1 7.4-10.4 [facility] HospitalLnkjlhhBBCCZGGVRR2037-93-23 22:38:00 Test Item Value Reference Range Interpretation Comments WBC (test code = WBC) 14.0 3.7-10.4 [facility] HospitalOcfdyddRAMZWXUTXU5868-10-96 22:38:00 Test Item Value Reference Range Interpretation Comments RBC (test code = RBC) 5.18 4.70-6.10 [facility] HospitalSikyrgtQQNGZBVOAL0695-77-96 22:38:00 Test Item Value Reference Range Interpretation Comments Hgb (test code = Hgb) 14.2 14.0-18.0 [facility] HospitalPrtapzqZUQPUFFTMU7566-11-86 22:38:00 Test Item Value Reference Range Interpretation Comments Hct (test code = Hct) 44.2 42.0-54.0 [facility] HospitalVoxfxmjDFFXTIBVGC8765-16-91 22:38:00 Test Item Value Reference Range Interpretation Comments MCV (test code = MCV) 85.3 80.0-94.0 [facility] HospitalEsgtfqlDHLXBPZTTI1744-84-11 22:38:00 Test Item Value Reference Range Interpretation Comments Basophils (test code = 0.2 See_Comment [Aut omated message] The Basophils) system which ge nerated this result tra nsmitted reference range : <=1.0. The reference r annemarie was not used to int erpret this result as normal/abnormal . [facility] HospitalIzgcsloGUCOJIEDRO1277-28-47 22:38:00 Test Item Value Reference Range Interpretation Comments Eosinophils (test code = 0.1 See_Comment [A utomated message] The Eosinophils) system which ge nerated this result tra nsmitted reference range : <=4.0. The reference r annemarie was not used to int erpret this result as normal/abnormal . [facility] HospitalGrfopbeOKOQHERDHH4533-71-66 22:38:00 Test Item Value Reference Range Interpretation Comments Monocytes (test code = Monocytes) 2.7 2.0-12.0 [facility] HospitalMgzgpacKVQYPIYWRQ9676-22-90 22:38:00 Test Item Value Reference Range Interpretation Comments Monocytes # (test code 0.4 See_Comment [Aut omated message] The = Monocytes #) system which generated this result tra nsmitted reference range : <=0.8. The reference r annemarie was not used to int erpret this result as normal/abnormal . [facility] HospitalJnpmoipBISJMTPBWS6901-89-83 22:38:00 Test Item Value Reference Range Interpretation Comments Lymphocytes # (test code = Lymphocytes 0.6 1.0-5.5 #) [facility] HospitalBvrdvcgNMYZHBGYRW1057-89-39 22:38:00 Test Item Value Reference Range Interpretation Comments Neutrophils # (test code = Neutrophils 13.0 1.5-8.1 #) [facility] HospitalAnsefczPCSQXUCPNA3805-69-41 22:38:00 Test Item Value Reference Range Interpretation Comments Lymphocytes (test code = Lymphocytes) 4.1 20.0-40.0 [facility] HospitalPxhhcsyIJANROTPEG4675-81-32 22:38:00 Test Item Value Reference Range Interpretation Comments Eosinophils # (test code 0.0 See_Comment [A utomated message] The = Eosinophils #) system whic h generated this result tra nsmitted reference range : <=0.5. The reference r annemarie was not used to int erpret this result as normal/abnormal . [facility] HospitalSsdpcgfOVAMZJNLKT1128-84-77 22:38:00 Test Item Value Reference Range Interpretation Comments Basophils # (test code 0.0 See_Comment [Aut omated message] The = Basophils #) system which generated this result tra nsmitted reference range : <=0.2. The reference r annemarie was not used to int erpret this result as normal/abnormal . [facility] HospitalPptxfopYUWRLCWPWN4164-39-63 22:38:00 Test Item Value Reference Range Interpretation Comments RBC Morph (test code = Normal (04/12/18 4:38 RBC Morph) PM) [facility] HospitalEvaztejUULUPIXJFM3859-82-00 22:38:00 Test Item Value Reference Range Interpretation Comments Plt Morph (test code = Normal (04/12/18 4:38 Plt Morph) PM) [facility] HospitalFkfzyvdWSMGQNEQRO2712-46-52 22:38:00 Test Item Value Reference Range Interpretation Comments Segs (test code = Segs) 92.9 45.0-75.0 [facility] HospitalYcgtmdzREZNNEOLLW5024-19-12 22:38:00 Test Item Value Reference Range Interpretation Comments Large Plt (test code Moderate *ABN*(04/12/18 = Large Plt) 4:38 PM) [id number] 22:38:00 Test Item Value Reference Range Interpretation Comments Troponin-I (test code 0.02 See_Comment [Auto mated message] The = Troponin-I) system which g enerated this result transmit abdelrahman reference range : <=0.40. The reference r annemarie was not used to interpr et this result as gurpreet l/abnormal. [facility] HospitalCARDIAC NJDMCZD6417-86-38 22:38:00 Test Item Value Reference Range Interpretation Comments Total CK (test code = Total CK) 50 12-191 [facility]FUN[facility] [id number] 22:38:00 Test Item Value Reference Range Interpretation Comments eGFR (test code = eGFR) 120 [facility] [id number] 22:38:00 Test Item Value Reference Range Interpretation Comments AST (test code = AST) 17 See_Comment [Auto mated message] The system which ge nerated this result transmit abdelrahman reference range : <=37. The reference range was not used to interpr et this result as gurpreet l/abnormal. [facility] [id number] 22:38:00 Test Item Value Reference Range Interpretation Comments ALT (test code = ALT) 23 See_Comment [Auto mated message] The system which ge nerated this result transmit abdelrahman reference range : <=65. The reference range was not used to interpr et this result as gurpreet l/abnormal. [facility] [id number] 22:38:00 Test Item Value Reference Range Interpretation Comments Albumin Lvl (test code = Albumin Lvl) 4.0 3.5-5.0 [facility] [id number] 22:38:00 Test Item Value Reference Range Interpretation Comments Total Protein (test code = Total 7.4 6.4-8.4 Protein) [facility]2018-12-13 22:38:00 Test Item Value Reference Range Interpretation Comments Bili Total (test code = Bili Total) 0.3 0.2-1.3 [facility] [id number] 22:38:00 Test Item Value Reference Range Interpretation Comments Alk Phos (test code = Alk Phos) 35 39-136 [facility] JHFSJ7830-09-62 22:38:00 Test Item Value Reference Range Interpretation Comments Chloride Lvl (test code = Chloride Lvl) 103 95-109 [facility] [id number] 22:38:00 Test Item Value Reference Range Interpretation Comments Calcium Lvl (test code = Calcium Lvl) 9.4 8.5-10.5 [facility] [id number] 22:38:00 Test Item Value Reference Range Interpretation Comments CO2 (test code = CO2) 32 24-32 [facility]2018-12-13 22:38:00 Test Item Value Reference Range Interpretation Comments Potassium Lvl (test code = Potassium 4.2 3.5-5.1 Lvl) [facility]2018-12-13 22:38:00 Test Item Value Reference Range Interpretation Comments Sodium Lvl (test code = Sodium Lvl) 139 135-145 [facility]2018-12-13 22:38:00 Test Item Value Reference Range Interpretation Comments Creatinine Lvl (test code = Creatinine 0.80 0.50-1.40 Lvl) [facility]2018-12-13 22:38:00 Test Item Value Reference Range Interpretation Comments BUN (test code = BUN) 12 7-22 [facility]2018-12-13 22:38:00 Test Item Value Reference Range Interpretation Comments Glucose Lvl (test code = Glucose Lvl) 93 70-99 [facility]2018-12-13 22:38:00 Test Item Value Reference Range Interpretation Comments A/G Ratio (test code = A/G Ratio) 1.2 1 0.7-1.6 [facility]2018-12-13 22:38:00 Test Item Value Reference Range Interpretation Comments Globulin (test code = Globulin) 3.4 2.7-4.2 [facility]2018-12-13 22:38:00 Test Item Value Reference Range Interpretation Comments B/C Ratio (test code = B/C Ratio) 15 1 6-25 [facility]2018-12-13 22:38:00 Test Item Value Reference Range Interpretation Comments AGAP (test code = AGAP) 8.2 10.0-20.0 [facility] HospitalIqridixLPKXRRSKOD5617-63-71 22:38:00 Test Item Value Reference Range Interpretation Comments MCHC (test code = MCHC) 32.1 32.0-36.0 [facility] HospitalEvecbmaVEVPVCCPAQ6678-69-72 22:38:00 Test Item Value Reference Range Interpretation Comments MCH (test code = MCH) 27.4 pg 27.0-31.0 [facility] HospitalJqqtdhiEQLHZTMJLY6232-93-31 22:38:00 Test Item Value Reference Range Interpretation Comments Platelet (test code = Platelet) 200 133-450 [facility] HospitalHzdvmkaWDVCNCRPSR6362-62-52 22:38:00 Test Item Value Reference Range Interpretation Comments RDW (test code = RDW) 14.4 11.5-14.5 [facility] HospitalQzkyrxkKQFIAYGEWY1139-61-87 22:38:00 Test Item Value Reference Range Interpretation Comments MPV (test code = MPV) 9.1 7.4-10.4 [facility] HospitalRiszkboHURCECQFPB1278-59-49 22:38:00 Test Item Value Reference Range Interpretation Comments WBC (test code = WBC) 14.0 3.7-10.4 [facility] HospitalMzifxnpPXXPNDZTQP9469-73-98 22:38:00 Test Item Value Reference Range Interpretation Comments RBC (test code = RBC) 5.18 4.70-6.10 [facility] HospitalMwzvwxrNKXCANNXDL5498-77-58 22:38:00 Test Item Value Reference Range Interpretation Comments Hgb (test code = Hgb) 14.2 14.0-18.0 [facility] HospitalHdhwkbtEXLHAFJRPV4551-33-19 22:38:00 Test Item Value Reference Range Interpretation Comments Hct (test code = Hct) 44.2 42.0-54.0 [facility] HospitalGbtgeqnZBRLWNEGXS5703-00-93 22:38:00 Test Item Value Reference Range Interpretation Comments MCV (test code = MCV) 85.3 80.0-94.0 [facility] HospitalUtsakriCOEDJVTXZV3182-94-37 22:38:00 Test Item Value Reference Range Interpretation Comments Basophils (test code = 0.2 See_Comment [Aut omated message] The Basophils) system which ge nerated this result tra nsmitted reference range : <=1.0. The reference r annemarie was not used to int erpret this result as normal/abnormal . [facility] HospitalRiupbjwTGTWNGYOJE8386-44-48 22:38:00 Test Item Value Reference Range Interpretation Comments Eosinophils (test code = 0.1 See_Comment [A utomated message] The Eosinophils) system which ge nerated this result tra nsmitted reference range : <=4.0. The reference r annemarie was not used to int erpret this result as normal/abnormal . [place] [id number] 22:38:00 Test Item Value Reference Range Interpretation Comments Monocytes (test code = Monocytes) 2.7 2.0-12.0 [facility] HospitalGzlrwjrZWIOZDEPWZ0701-20-93 22:38:00 Test Item Value Reference Range Interpretation Comments Monocytes # (test code 0.4 See_Comment [Aut omated message] The = Monocytes #) system which generated this result tra nsmitted reference range : <=0.8. The reference r annemarie was not used to int erpret this result as normal/abnormal . [facility] HospitalOpyflrwVSSZCCSNWJ9868-93-90 22:38:00 Test Item Value Reference Range Interpretation Comments Lymphocytes # (test code = Lymphocytes 0.6 1.0-5.5 #) [facility] HospitalIciyadkFTEPTJJTEE6769-21-52 22:38:00 Test Item Value Reference Range Interpretation Comments Neutrophils # (test code = Neutrophils 13.0 1.5-8.1 #) [facility] HospitalSedgwvcJCSPHJVHPZ3121-21-11 22:38:00 Test Item Value Reference Range Interpretation Comments Lymphocytes (test code = Lymphocytes) 4.1 20.0-40.0 [facility] HospitalKknixtcRGVLZOHWSI1902-17-95 22:38:00 Test Item Value Reference Range Interpretation Comments Eosinophils # (test code 0.0 See_Comment [A utomated message] The = Eosinophils #) system whic h generated this result tra nsmitted reference range : <=0.5. The reference r annemarie was not used to int erpret this result as normal/abnormal . [facility] HospitalCslbzqaMJOAMPOZJH3682-97-73 22:38:00 Test Item Value Reference Range Interpretation Comments Basophils # (test code 0.0 See_Comment [Aut omated message] The = Basophils #) system which generated this result tra nsmitted reference range : <=0.2. The reference r annemarie was not used to int erpret this result as normal/abnormal . [facility] HospitalVczjovvJSCBWJPGHZ6878-73-55 22:38:00 Test Item Value Reference Range Interpretation Comments RBC Morph (test code = Normal (04/12/18 4:38 RBC Morph) PM) [facility] HospitalGgpaxmgQFOZRMRTXC5696-02-29 22:38:00 Test Item Value Reference Range Interpretation Comments Plt Morph (test code = Normal (04/12/18 4:38 Plt Morph) PM) [facility] HospitalEkkyamlAOOYKNWWLG2607-43-57 22:38:00 Test Item Value Reference Range Interpretation Comments Segs (test code = Segs) 92.9 45.0-75.0 [facility] HospitalZjwepzoUXBLNVROLN8750-91-98 22:38:00 Test Item Value Reference Range Interpretation Comments Large Plt (test code Moderate *ABN*(04/12/18 = Large Plt) 4:38 PM) [facility] [employer] [id number] 22:38:00 Test Item Value Reference Range Interpretation Comments Troponin-I (test code 0.02 See_Comment [Auto mated message] The = Troponin-I) system which g enerated this result transmit abdelrahman reference range : <=0.40. The reference r annemarie was not used to interpr et this result as gurpreet l/abnormal. [facility] [employer] [id number] 22:38:00 Test Item Value Reference Range Interpretation Comments Total CK (test code = Total CK) 50 12-191 [facility] [employer] [id number] 22:38:00 Test Item Value Reference Range Interpretation Comments eGFR (test code = eGFR) 120 [facility] [id number] 22:38:00 Test Item Value Reference Range Interpretation Comments AST (test code = AST) 17 See_Comment [Auto mated message] The system which ge nerated this result transmit abdelrahman reference range : <=37. The reference range was not used to interpr et this result as gurpreet l/abnormal. [facility] [employer] [id number] 22:38:00 Test Item Value Reference Range Interpretation Comments ALT (test code = ALT) 23 See_Comment [Auto mated message] The system which ge nerated this result transmit abdelrahman reference range : <=65. The reference range was not used to interpr et this result as gurpreet l/abnormal. [facility] [employer] [id number] 22:38:00 Test Item Value Reference Range Interpretation Comments Albumin Lvl (test code = Albumin Lvl) 4.0 3.5-5.0 [facility] [id number] 22:38:00 Test Item Value Reference Range Interpretation Comments Total Protein (test code = Total 7.4 6.4-8.4 Protein) [facility] [employer] [id number] 22:38:00 Test Item Value Reference Range Interpretation Comments Bili Total (test code = Bili Total) 0.3 0.2-1.3 [facility] [id number] 22:38:00 Test Item Value Reference Range Interpretation Comments Alk Phos (test code = Alk Phos) 35 39-136 [facility]2018-12-13 22:38:00 Test Item Value Reference Range Interpretation Comments Chloride Lvl (test code = Chloride Lvl) 103 95-109 [facility]2018-12-13 22:38:00 Test Item Value Reference Range Interpretation Comments Calcium Lvl (test code = Calcium Lvl) 9.4 8.5-10.5 [facility]2018-12-13 22:38:00 Test Item Value Reference Range Interpretation Comments CO2 (test code = CO2) 32 24-32 [facility]2018-12-13 22:38:00 Test Item Value Reference Range Interpretation Comments Potassium Lvl (test code = Potassium 4.2 3.5-5.1 Lvl) [facility]2018-12-13 22:38:00 Test Item Value Reference Range Interpretation Comments Sodium Lvl (test code = Sodium Lvl) 139 135-145 [facility]2018-12-13 22:38:00 Test Item Value Reference Range Interpretation Comments Creatinine Lvl (test code = Creatinine 0.80 0.50-1.40 Lvl) [facility]2018-12-13 22:38:00 Test Item Value Reference Range Interpretation Comments BUN (test code = BUN) 12 7-22 [facility]2018-12-13 22:38:00 Test Item Value Reference Range Interpretation Comments Glucose Lvl (test code = Glucose Lvl) 93 70-99 [facility]2018-12-13 22:38:00 Test Item Value Reference Range Interpretation Comments A/G Ratio (test code = A/G Ratio) 1.2 1 0.7-1.6 [facility]2018-12-13 22:38:00 Test Item Value Reference Range Interpretation Comments Globulin (test code = Globulin) 3.4 2.7-4.2 [facility]2018-12-13 22:38:00 Test Item Value Reference Range Interpretation Comments B/C Ratio (test code = B/C Ratio) 15 1 6-25 [facility]2018-12-13 22:38:00 Test Item Value Reference Range Interpretation Comments AGAP (test code = AGAP) 8.2 10.0-20.0 [facility] HospitalVgczdedOHBWGQMCSU3029-70-16 22:38:00 Test Item Value Reference Range Interpretation Comments MCHC (test code = MCHC) 32.1 32.0-36.0 [facility] HospitalJyfkzvxAPUOADWJJE1061-71-88 22:38:00 Test Item Value Reference Range Interpretation Comments MCH (test code = MCH) 27.4 pg 27.0-31.0 [facility] HospitalRdehqueBQIRDSRYKM0468-33-55 22:38:00 Test Item Value Reference Range Interpretation Comments Platelet (test code = Platelet) 200 133-450 [facility] HospitalEcomcutJGLBHVFDNL5902-06-08 22:38:00 Test Item Value Reference Range Interpretation Comments RDW (test code = RDW) 14.4 11.5-14.5 [facility] HospitalGwuwgonXIXTHHTIAV5584-45-44 22:38:00 Test Item Value Reference Range Interpretation Comments MPV (test code = MPV) 9.1 7.4-10.4 [facility] HospitalEgzfwnwNYXVPWOOUY4775-12-40 22:38:00 Test Item Value Reference Range Interpretation Comments WBC (test code = WBC) 14.0 3.7-10.4 [facility] HospitalBleoksiDTCGFQIUOC0076-93-54 22:38:00 Test Item Value Reference Range Interpretation Comments RBC (test code = RBC) 5.18 4.70-6.10 [facility] HospitalUlxzrtwLGNHMZRULH3350-77-56 22:38:00 Test Item Value Reference Range Interpretation Comments Hgb (test code = Hgb) 14.2 14.0-18.0 [facility] HospitalNqvmammVGUEARNMXI0074-21-31 22:38:00 Test Item Value Reference Range Interpretation Comments Hct (test code = Hct) 44.2 42.0-54.0 [facility] HospitalEfbltkwLQCGRXKCHW0428-45-24 22:38:00 Test Item Value Reference Range Interpretation Comments MCV (test code = MCV) 85.3 80.0-94.0 [facility] HospitalTqemprdXEYNWAKMRA5171-75-98 22:38:00 Test Item Value Reference Range Interpretation Comments Basophils (test code = 0.2 See_Comment [Aut omated message] The Basophils) system which ge nerated this result tra nsmitted reference range : <=1.0. The reference r annemarie was not used to int erpret this result as normal/abnormal . [facility] HospitalQctmpfnJNRSSBZASJ7724-62-96 22:38:00 Test Item Value Reference Range Interpretation Comments Eosinophils (test code = 0.1 See_Comment [A utomated message] The Eosinophils) system which ge nerated this result tra nsmitted reference range : <=4.0. The reference r annemarie was not used to int erpret this result as normal/abnormal . [facility] HospitalHcufmjtKXWDZXMHUV8751-70-84 22:38:00 Test Item Value Reference Range Interpretation Comments Monocytes (test code = Monocytes) 2.7 2.0-12.0 [facility] HospitalAilhiruJEGCHDAKDA7557-10-90 22:38:00 Test Item Value Reference Range Interpretation Comments Monocytes # (test code 0.4 See_Comment [Aut omated message] The = Monocytes #) system which generated this result tra nsmitted reference range : <=0.8. The reference r annemarie was not used to int erpret this result as normal/abnormal . [facility] HospitalWmdgpgfAMKSBTAKPI0720-18-74 22:38:00 Test Item Value Reference Range Interpretation Comments Lymphocytes # (test code = Lymphocytes 0.6 1.0-5.5 #) [facility] HospitalRbxwpucMGPTMXGFCF0802-83-35 22:38:00 Test Item Value Reference Range Interpretation Comments Neutrophils # (test code = Neutrophils 13.0 1.5-8.1 #) [facility] HospitalQqwtszxQKJXNDMOGP4219-01-09 22:38:00 Test Item Value Reference Range Interpretation Comments Lymphocytes (test code = Lymphocytes) 4.1 20.0-40.0 [facility] HospitalYzycjblFMISQMYXWD4982-01-20 22:38:00 Test Item Value Reference Range Interpretation Comments Eosinophils # (test code 0.0 See_Comment [A utomated message] The = Eosinophils #) system [facility] generated this result tra nsmitted reference range : <=0.5. The reference r annemarie was not used to int erpret this result as normal/abnormal . [facility] HospitalBmixhgxRYFLBJYZYX8307-39-53 22:38:00 Test Item Value Reference Range Interpretation Comments Basophils # (test code 0.0 See_Comment [Aut omated message] The = Basophils #) system which generated this result tra nsmitted reference range : <=0.2. The reference r annemarie was not used to int erpret this result as normal/abnormal . [facility] HospitalKlukmkqKABTYRBQGN6336-66-81 22:38:00 Test Item Value Reference Range Interpretation Comments RBC Morph (test code = Normal (04/12/18 4:38 RBC Morph) PM) [facility] HospitalLafshnuRVVQOJHSFZ0746-18-12 22:38:00 Test Item Value Reference Range Interpretation Comments Plt Morph (test code = Normal (04/12/18 4:38 Plt Morph) PM) [facility] HospitalGqvacytYJAVGIRBSX6105-80-46 22:38:00 Test Item Value Reference Range Interpretation Comments Segs (test code = Segs) 92.9 45.0-75.0 [facility] HospitalGsioxieNFQGEJPUZT7843-14-67 22:38:00 Test Item Value Reference Range Interpretation Comments Large Plt (test code Moderate *ABN*(04/12/18 = Large Plt) 4:38 PM) [facility] [id number] 03:21:00 Test Item Value Reference Range Interpretation Comments Total CK (test code = Total CK) 3725 12-191 [facility] HospitalEhtcmraDXGWIJGUJULR8786-52-30 03:21:00 Test Item Value Reference Range Interpretation Comments AGAP (test code = AGAP) 14.1 10.0-20.0 [facility] HospitalLcyiirhJLNZLGNIJHEV6526-60-90 03:21:00 Test Item Value Reference Range Interpretation Comments B/C Ratio (test code = B/C Ratio) 11 6-25 [facility] [facility]fJDUTLV[facility]VRJN1781-28-87 03:21:00 Test Item Value Reference Range Interpretation Comments Globulin (test code = Globulin) 3.2 2.7-4.2 [facility] HospitalUruvbzvBWWHSDNXXPCI2987-25-14 03:21:00 Test Item Value Reference Range Interpretation Comments A/G Ratio (test code = A/G Ratio) 1.3 0.7-1.6 [facility] HospitalPypaqazZQCPJRRVCBZP9395-18-51 03:21:00 Test Item Value Reference Range Interpretation Comments Bili Total (test code = Bili Total) 0.4 0.2-1.3 [facility] HospitalGqfghgkCBBGYBYJEDEQ7348-30-46 03:21:00 Test Item Value Reference Range Interpretation Comments eGFR (test code = eGFR) 102 [facility] HospitalXcxifdbEGPTTKDKVVBN3832-59-24 03:21:00 Test Item Value Reference Range Interpretation Comments Albumin Lvl (test code = Albumin Lvl) 4.2 3.5-5.0 [facility] HospitalYvohrfxETQEXOTYOWOP5387-37-84 03:21:00 Test Item Value Reference Range Interpretation Comments Alk Phos (test code = Alk Phos) 48 39-136 [facility] HospitalPypqfubJESOWSMOUSTR3798-87-79 03:21:00 Test Item Value Reference Range Interpretation Comments AST (test code = AST) 144 See_Comment [Auto mated message] The system which ge nerated this result transmit abdelrahman reference range : <=37. The reference range was not used to interpr et this result as gurpreet l/abnormal. [facility] HospitalGqilxejUMMFAODPECEW6504-92-16 03:21:00 Test Item Value Reference Range Interpretation Comments Glucose Lvl (test code = Glucose Lvl) 75 70-99 [facility] HospitalVbclwgrSKSBUKYOIMJS2516-64-63 03:21:00 Test Item Value Reference Range Interpretation Comments BUN (test code = BUN) 11 7-22 [facility] HospitalWqpojdwWQXMOKCWPSRN2007-94-73 03:21:00 Test Item Value Reference Range Interpretation Comments Potassium Lvl (test code = Potassium 4.1 3.5-5.1 Lvl) [facility] HospitalHxdbnoyJHQHBRPWKNRN0326-80-09 03:21:00 Test Item Value Reference Range Interpretation Comments Creatinine Lvl (test code = Creatinine 1.00 0.50-1.40 Lvl) [facility] HospitalTvymggbUSZLOPBSUKEB7954-08-91 03:21:00 Test Item Value Reference Range Interpretation Comments Sodium Lvl (test code = Sodium Lvl) 140 135-145 [facility] HospitalNjtcjijCDZAZTMSSQNV8003-37-11 03:21:00 Test Item Value Reference Range Interpretation Comments Chloride Lvl (test code = Chloride Lvl) 106 95-109 [facility] HospitalLwfzaryLLTOCCFNESLD0167-38-10 03:21:00 Test Item Value Reference Range Interpretation Comments CO2 (test code = CO2) 24 24-32 [facility] HospitalMstmyqhLYJZDXRSMHII2379-35-89 03:21:00 Test Item Value Reference Range Interpretation Comments Total Protein (test code = Total 7.4 6.4-8.4 Protein) [facility] HospitalMvkfuyhOJCUZSMGTFWD3872-62-70 03:21:00 Test Item Value Reference Range Interpretation Comments Calcium Lvl (test code = Calcium Lvl) 9.1 8.5-10.5 [facility] HospitalRpkudldFYHVTOCZHEJL9423-63-98 03:21:00 Test Item Value Reference Range Interpretation Comments ALT (test code = ALT) 52 See_Comment [Auto mated message] The system which ge nerated this result transmit abdelrahman reference range : <=65. The reference range was not used to interpr et this result as gurpreet l/abnormal. [facility] HospitalXutgagaBUJEFBLTRF2553-85-40 03:21:00 Test Item Value Reference Range Interpretation Comments MCV (test code = MCV) 86.0 80.0-94.0 [facility] HospitalHhckkecLICNWMNITH0800-07-03 03:21:00 Test Item Value Reference Range Interpretation Comments MCH (test code = MCH) 29.7 pg 27.0-31.0 [facility] HospitalZdrnglfULIXBNJDGH7147-64-65 03:21:00 Test Item Value Reference Range Interpretation Comments Hct (test code = Hct) 41.0 42.0-54.0 [facility] HospitalAvnculbIVXFOPVOOO4752-19-61 03:21:00 Test Item Value Reference Range Interpretation Comments RBC (test code = RBC) 4.77 4.70-6.10 [facility] HospitalFbabqebWCFTFKMXQL6699-93-12 03:21:00 Test Item Value Reference Range Interpretation Comments WBC (test code = WBC) 8.8 3.7-10.4 [facility] HospitalTkmbesxXMYMRIOTXS8698-03-65 03:21:00 Test Item Value Reference Range Interpretation Comments Hgb (test code = Hgb) 14.2 14.0-18.0 [facility] HospitalLylcoeoGVSPOBUFUA5972-64-25 03:21:00 Test Item Value Reference Range Interpretation Comments Platelet (test code = Platelet) 141 133-450 [facility] HospitalYcfourhEQGDZEXLLS7553-07-57 03:21:00 Test Item Value Reference Range Interpretation Comments MCHC (test code = MCHC) 34.5 32.0-36.0 [facility] HospitalFufbywpSTHWDDOZNG9176-01-94 03:21:00 Test Item Value Reference Range Interpretation Comments RDW (test code = RDW) 13.5 11.5-14.5 [facility] HospitalIophytmUGNBHAGEHK7781-96-40 03:21:00 Test Item Value Reference Range Interpretation Comments MPV (test code = MPV) 8.9 7.4-10.4 [facility] HospitalDjhisatRXMCJSKUQM4796-73-38 03:21:00 Test Item Value Reference Range Interpretation Comments Lymphocytes (test code = Lymphocytes) 21.1 20.0-40.0 [facility] HospitalVbhafmbLWKLZTIHJQ3443-87-98 03:21:00 Test Item Value Reference Range Interpretation Comments Monocytes (test code = Monocytes) 11.7 2.0-12.0 [facility] HospitalRbxmxoqOGXAXWLWEV2857-40-55 03:21:00 Test Item Value Reference Range Interpretation Comments Lymphocytes # (test code = Lymphocytes 1.8 1.0-5.5 #) [facility] HospitalCvwtehbAOMGQUEKYW3709-37-25 03:21:00 Test Item Value Reference Range Interpretation Comments Segs-Bands # (test code = Segs-Bands #) 5.7 1.5-8.1 [facility] HospitalDmklfawGRWNOCLDHO1337-14-08 03:21:00 Test Item Value Reference Range Interpretation Comments Eosinophils (test code = 1.7 See_Comment [A utomated message] The Eosinophils) system which ge nerated this result tra nsmitted reference range : <=4.0. The reference r annemarie was not used to int erpret this result as normal/abnormal . [facility] HospitalEftwfzrDUEPJVZDPE1109-02-98 03:21:00 Test Item Value Reference Range Interpretation Comments Basophils (test code = 0.8 See_Comment [Aut omated message] The Basophils) system which ge nerated this result tra nsmitted reference range : <=1.0. The reference r annemarie was not used to int erpret this result as normal/abnormal . [facility] HospitalNrituckVFTAXDSYMP2889-89-70 03:21:00 Test Item Value Reference Range Interpretation Comments Basophils # (test code 0.1 See_Comment [Aut omated message] The = Basophils #) system which generated this result tra nsmitted reference range : <=0.2. The reference r annemarie was not used to int erpret this result as normal/abnormal . [facility] HospitalPalmicqYWIQOWPUEA4132-75-42 03:21:00 Test Item Value Reference Range Interpretation Comments Monocytes # (test code 1.0 See_Comment [Aut omated message] The = Monocytes #) system which generated this result tra nsmitted reference range : <=0.8. The reference r annemarie was not used to int erpret this result as normal/abnormal . [facility] HospitalCksodsnREYJDKAFKJ8345-50-09 03:21:00 Test Item Value Reference Range Interpretation Comments Eosinophils # (test code 0.2 See_Comment [A utomated message] The = Eosinophils #) system whic h generated this result tra nsmitted reference range : <=0.5. The reference r annemarie was not used to int erpret this result as normal/abnormal . [facility]NibpmgfKWLCWRPMWU4351-39-93 03:21:00 Test Item Value Reference Range Interpretation Comments Segs (test code = Segs) 64.7 45.0-75.0 [facility] HospitalCARDIAC UYRPNBK3068-34-97 03:21:00 Test Item Value Reference Range Interpretation Comments Total CK (test code = Total CK) 3725 12-191 [facility] HospitalTmpavwdJYZEIDMVCBLL9564-75-84 03:21:00 Test Item Value Reference Range Interpretation Comments AGAP (test code = AGAP) 14.1 10.0-20.0 [facility] HospitalXcpfdffQLSJRVERZMIA1222-92-32 03:21:00 Test Item Value Reference Range Interpretation Comments B/C Ratio (test code = B/C Ratio) 11 6-25 [facility] HospitalBszzobaZKBLFJTIUNSX2275-70-99 03:21:00 Test Item Value Reference Range Interpretation Comments Globulin (test code = Globulin) 3.2 2.7-4.2 [facility] HospitalEvbavhcZKIOAROTRNNX2078-06-77 03:21:00 Test Item Value Reference Range Interpretation Comments A/G Ratio (test code = A/G Ratio) 1.3 0.7-1.6 [facility] HospitalLhjztafMXYNAPFTQZBK2045-70-62 03:21:00 Test Item Value Reference Range Interpretation Comments Bili Total (test code = Bili Total) 0.4 0.2-1.3 [facility] HospitalUkvvpjlZOHRCKMSXQWI6494-35-11 03:21:00 Test Item Value Reference Range Interpretation Comments eGFR (test code = eGFR) 102 [facility] HospitalWrpwupyDINGMPFHBVWL9918-47-93 03:21:00 Test Item Value Reference Range Interpretation Comments Albumin Lvl (test code = Albumin Lvl) 4.2 3.5-5.0 [facility] HospitalHtaxgmsQEHQZHNMHYJN7822-64-69 03:21:00 Test Item Value Reference Range Interpretation Comments Alk Phos (test code = Alk Phos) 48 39-136 [facility] HospitalEkjzttrWMIDCEUUZPZK4390-38-32 03:21:00 Test Item Value Reference Range Interpretation Comments AST (test code = AST) 144 See_Comment [Auto mated message] The system which ge nerated this result transmit abdelrahman reference range : <=37. The reference range was not used to interpr et this result as gurpreet l/abnormal. [facility] HospitalUvetapsWPGVESXGZJXT4699-20-66 03:21:00 Test Item Value Reference Range Interpretation Comments Glucose Lvl (test code = Glucose Lvl) 75 70-99 [facility] HospitalHusrnrnOFZVORROJEKF5943-58-68 03:21:00 Test Item Value Reference Range Interpretation Comments BUN (test code = BUN) 11 7-22 [facility] HospitalZfqiyurLMIFEONROQTY4825-34-99 03:21:00 Test Item Value Reference Range Interpretation Comments Potassium Lvl (test code = Potassium 4.1 3.5-5.1 Lvl) [facility] HospitalPuplvhhJCGHRLLXXYSP1194-35-06 03:21:00 Test Item Value Reference Range Interpretation Comments Creatinine Lvl (test code = Creatinine 1.00 0.50-1.40 Lvl) [facility] HospitalOovjnlsXKSDWRCFKLKQ6199-26-05 03:21:00 Test Item Value Reference Range Interpretation Comments Sodium Lvl (test code = Sodium Lvl) 140 135-145 [facility] HospitalVvqoxxpMUPNXLUXRFRF6549-17-84 03:21:00 Test Item Value Reference Range Interpretation Comments Chloride Lvl (test code = Chloride Lvl) 106 95-109 [facility] HospitalIioiutcEJVOSTUOHQLN3107-16-19 03:21:00 Test Item Value Reference Range Interpretation Comments CO2 (test code = CO2) 24 24-32 [facility] HospitalQazbdrtYULMYLCVSTHH2553-87-83 03:21:00 Test Item Value Reference Range Interpretation Comments Total Protein (test code = Total 7.4 6.4-8.4 Protein) [facility] HospitalQzixddgLCWYNMKWPUWT9928-43-12 03:21:00 Test Item Value Reference Range Interpretation Comments Calcium Lvl (test code = Calcium Lvl) 9.1 8.5-10.5 [facility] HospitalWtonefcBBIINMEQJYWK3368-85-50 03:21:00 Test Item Value Reference Range Interpretation Comments ALT (test code = ALT) 52 See_Comment [Auto mated message] The system which ge nerated this result transmit abdelrahman reference range : <=65. The reference range was not used to interpr et this result as gurpreet l/abnormal. [facility] HospitalLtcggpwYMUVIDFKAB7776-01-12 03:21:00 Test Item Value Reference Range Interpretation Comments MCV (test code = MCV) 86.0 80.0-94.0 [facility] HospitalNztbioiGEWHZOUFCQ6169-99-17 03:21:00 Test Item Value Reference Range Interpretation Comments MCH (test code = MCH) 29.7 pg 27.0-31.0 [facility] HospitalDhlcyrvYFBOJWTJQX4879-35-54 03:21:00 Test Item Value Reference Range Interpretation Comments Hct (test code = Hct) 41.0 42.0-54.0 [facility] HospitalSuqkrfvSGKRILZFRK8359-73-55 03:21:00 Test Item Value Reference Range Interpretation Comments RBC (test code = RBC) 4.77 4.70-6.10 [facility] HospitalHnftzduGFTFARDRVZ7274-63-11 03:21:00 Test Item Value Reference Range Interpretation Comments WBC (test code = WBC) 8.8 3.7-10.4 [facility] HospitalZhzpoqmTSQWTQQOAF9518-64-96 03:21:00 Test Item Value Reference Range Interpretation Comments Hgb (test code = Hgb) 14.2 14.0-18.0 [facility] HospitalUekyoniHIFCQZOASN1387-26-78 03:21:00 Test Item Value Reference Range Interpretation Comments Platelet (test code = Platelet) 141 133-450 [facility] HospitalTfnqlnxRWMJFEDZLQ3919-83-06 03:21:00 Test Item Value Reference Range Interpretation Comments MCHC (test code = MCHC) 34.5 32.0-36.0 [facility] HospitalTjzbokpFIUKOORFZX3206-43-12 03:21:00 Test Item Value Reference Range Interpretation Comments RDW (test code = RDW) 13.5 11.5-14.5 [facility] HospitalPolxciqCPPFUXYVCH5614-43-07 03:21:00 Test Item Value Reference Range Interpretation Comments MPV (test code = MPV) 8.9 7.4-10.4 [facility] HospitalBavsnlqZUJWCUOXEL3449-69-09 03:21:00 Test Item Value Reference Range Interpretation Comments Lymphocytes (test code = Lymphocytes) 21.1 20.0-40.0 [facility] HospitalZqhvowgADTMAXYUOC8243-25-78 03:21:00 Test Item Value Reference Range Interpretation Comments Monocytes (test code = Monocytes) 11.7 2.0-12.0 [facility] HospitalOveqqdaIKVKTSYDVX0513-58-92 03:21:00 Test Item Value Reference Range Interpretation Comments Lymphocytes # (test code = Lymphocytes 1.8 1.0-5.5 #) [facility] HospitalMwbuczaESLIJACHPS5315-46-80 03:21:00 Test Item Value Reference Range Interpretation Comments Segs-Bands # (test code = Segs-Bands #) 5.7 1.5-8.1 [facility] HospitalKnkzlafCEYTDZKOVA9718-25-56 03:21:00 Test Item Value Reference Range Interpretation Comments Eosinophils (test code = 1.7 See_Comment [A utomated message] The Eosinophils) system which ge nerated this result tra nsmitted reference range : <=4.0. The reference r annemarie was not used to int erpret this result as normal/abnormal . [facility] HospitalGryvrmtOPAJMRFMOE6198-39-51 03:21:00 Test Item Value Reference Range Interpretation Comments Basophils (test code = 0.8 See_Comment [Aut omated message] The Basophils) system which ge nerated this result tra nsmitted reference range : <=1.0. The reference r annemarie was not used to int erpret this result as normal/abnormal . [facility] HospitalPpfxbfcSXBRJUBUMN2534-76-34 03:21:00 Test Item Value Reference Range Interpretation Comments Basophils # (test code 0.1 See_Comment [Aut omated message] The = Basophils #) system which generated this result tra nsmitted reference range : <=0.2. The reference r annemarie was not used to int erpret this result as normal/abnormal . [facility] HospitalYrizimuPDWEZMBSAI5820-47-58 03:21:00 Test Item Value Reference Range Interpretation Comments Monocytes # (test code 1.0 See_Comment [Aut omated message] The = Monocytes #) system which generated this result tra nsmitted reference range : <=0.8. The reference r annemarie was not used to int erpret this result as normal/abnormal . [facility] HospitalLtrddbrZIUITEYYTE4090-84-32 03:21:00 Test Item Value Reference Range Interpretation Comments Eosinophils # (test code 0.2 See_Comment [A utomated message] The = Eosinophils #) system whic h generated this result tra nsmitted reference range : <=0.5. The reference r annemarie was not used to int erpret this result as normal/abnormal . [facility] HospitalTlxbcbiRGRQTCZNSZ0875-33-99 03:21:00 Test Item Value Reference Range Interpretation Comments Segs (test code = Segs) 64.7 45.0-75.0 [facility]2017-01-01 03:21:00 Test Item Value Reference Range Interpretation Comments Total CK (test code = Total CK) 3725 12-191 [facility] HospitalEgixvssQUYYCVSXKVAU7573-92-67 03:21:00 Test Item Value Reference Range Interpretation Comments AGAP (test code = AGAP) 14.1 10.0-20.0 [facility] HospitalMmwnzueJARZGPADGUJI3595-16-42 03:21:00 Test Item Value Reference Range Interpretation Comments B/C Ratio (test code = B/C Ratio) 11 6-25 [facility] HospitalDuzuueyPEVFWKCYBRDV2840-87-67 03:21:00 Test Item Value Reference Range Interpretation Comments Globulin (test code = Globulin) 3.2 2.7-4.2 [facility] HospitalFqignitMHRIAQKRIYLV0506-42-05 03:21:00 Test Item Value Reference Range Interpretation Comments A/G Ratio (test code = A/G Ratio) 1.3 0.7-1.6 [facility] HospitalDbwckjvXTOETCRGTASH6650-68-29 03:21:00 Test Item Value Reference Range Interpretation Comments Bili Total (test code = Bili Total) 0.4 0.2-1.3 [facility] HospitalEjntnetBQKGQRWZXSWG7019-05-30 03:21:00 Test Item Value Reference Range Interpretation Comments eGFR (test code = eGFR) 102 [facility] HospitalVguaxjtMTCIIHDSYEGA2847-56-54 03:21:00 Test Item Value Reference Range Interpretation Comments Albumin Lvl (test code = Albumin Lvl) 4.2 3.5-5.0 [facility] HospitalGaovbrlDVAXQNWOXXUW7857-69-79 03:21:00 Test Item Value Reference Range Interpretation Comments Alk Phos (test code = Alk Phos) 48 39-136 [facility] HospitalFiusbggFBXDDLHFEQJQ5827-40-25 03:21:00 Test Item Value Reference Range Interpretation Comments AST (test code = AST) 144 See_Comment [Auto mated message] The system which ge nerated this result transmit abdelrahman reference range : <=37. The reference range was not used to interpr et this result as gurpreet l/abnormal. [facility] HospitalJtarlmhCULOEWXHBJVQ1609-60-75 03:21:00 Test Item Value Reference Range Interpretation Comments Glucose Lvl (test code = Glucose Lvl) 75 70-99 [facility] HospitalRvgcxexFGSPZFIRVWTU8876-39-67 03:21:00 Test Item Value Reference Range Interpretation Comments BUN (test code = BUN) 11 7-22 [facility] HospitalYlgajpvIWWMAWFUMPHP5872-65-52 03:21:00 Test Item Value Reference Range Interpretation Comments Potassium Lvl (test code = Potassium 4.1 3.5-5.1 Lvl) [facility] HospitalIgivwdzRQHPHEVSZUDP0216-44-22 03:21:00 Test Item Value Reference Range Interpretation Comments Creatinine Lvl (test code = Creatinine 1.00 0.50-1.40 Lvl) [facility] HospitalWdwlmcvLYXJJFMCXBZF6829-81-89 03:21:00 Test Item Value Reference Range Interpretation Comments Sodium Lvl (test code = Sodium Lvl) 140 135-145 [facility] HospitalFjnccvlMFMJNSXYGNFA0315-99-39 03:21:00 Test Item Value Reference Range Interpretation Comments Chloride Lvl (test code = Chloride Lvl) 106 95-109 [facility] HospitalRsoitnnJTUUQCEUVEZG8673-87-27 03:21:00 Test Item Value Reference Range Interpretation Comments CO2 (test code = CO2) 24 24-32 [facility] HospitalCugijfdOFZNWZIURTKA6979-28-62 03:21:00 Test Item Value Reference Range Interpretation Comments Total Protein (test code = Total 7.4 6.4-8.4 Protein) [facility] HospitalQrvgjdpNXHKEORBPVDN7058-68-03 03:21:00 Test Item Value Reference Range Interpretation Comments Calcium Lvl (test code = Calcium Lvl) 9.1 8.5-10.5 [facility] HospitalTcjpkltVDNJPQUVJSFN3610-83-08 03:21:00 Test Item Value Reference Range Interpretation Comments ALT (test code = ALT) 52 See_Comment [Auto mated message] The system which ge nerated this result transmit abdelrahman reference range : <=65. The reference range was not used to interpr et this result as gurpreet l/abnormal. [facility] HospitalBhycqvtTBGSTCRMIQ4885-18-77 03:21:00 Test Item Value Reference Range Interpretation Comments MCV (test code = MCV) 86.0 80.0-94.0 [facility] HospitalOohbgyiQRHYBLBYTG1310-44-04 03:21:00 Test Item Value Reference Range Interpretation Comments MCH (test code = MCH) 29.7 pg 27.0-31.0 [facility] HospitalSqqbsviDRHRFQXBYD1821-22-07 03:21:00 Test Item Value Reference Range Interpretation Comments Hct (test code = Hct) 41.0 42.0-54.0 [facility] HospitalRqslbjqXJGTMQLMSC2790-27-85 03:21:00 Test Item Value Reference Range Interpretation Comments RBC (test code = RBC) 4.77 4.70-6.10 [facility] HospitalApoaxjgISDZOPYJUH8765-24-94 03:21:00 Test Item Value Reference Range Interpretation Comments WBC (test code = WBC) 8.8 3.7-10.4 [facility] HospitalSgtdizkHEZOCHEFTI7157-49-12 03:21:00 Test Item Value Reference Range Interpretation Comments Hgb (test code = Hgb) 14.2 14.0-18.0 [facility] HospitalAhozjlsAICQWYYJPD3268-68-12 03:21:00 Test Item Value Reference Range Interpretation Comments Platelet (test code = Platelet) 141 133-450 [facility] HospitalUjpzmmpMEYIFTJSHB3423-34-33 03:21:00 Test Item Value Reference Range Interpretation Comments MCHC (test code = MCHC) 34.5 32.0-36.0 [facility] HospitalGrkeeidUSVHVOTRLU6560-34-06 03:21:00 Test Item Value Reference Range Interpretation Comments RDW (test code = RDW) 13.5 11.5-14.5 [facility] HospitalWjlinnuILUCBQHFVE3851-76-70 03:21:00 Test Item Value Reference Range Interpretation Comments MPV (test code = MPV) 8.9 7.4-10.4 [facility] HospitalCotswzbDIMHOZLLPL8049-30-63 03:21:00 Test Item Value Reference Range Interpretation Comments Lymphocytes (test code = Lymphocytes) 21.1 20.0-40.0 [facility] HospitalFygywmnZAXZFPZQYQ1873-29-77 03:21:00 Test Item Value Reference Range Interpretation Comments Monocytes (test code = Monocytes) 11.7 2.0-12.0 [facility] HospitalQgqdidsBXGKUNJSMS2369-78-89 03:21:00 Test Item Value Reference Range Interpretation Comments Lymphocytes # (test code = Lymphocytes 1.8 1.0-5.5 #) [facility] HospitalGbcqzabWZXJTYUUBZ5525-60-16 03:21:00 Test Item Value Reference Range Interpretation Comments Segs-Bands # (test code = Segs-Bands #) 5.7 1.5-8.1 [facility] HospitalShddtyrUYLNSBYAYW0848-67-75 03:21:00 Test Item Value Reference Range Interpretation Comments Eosinophils (test code = 1.7 See_Comment [A utomated message] The Eosinophils) system which ge nerated this result tra nsmitted reference range : <=4.0. The reference r annemraie was not used to int erpret this result as normal/abnormal . [facility] HospitalJpocqygSSZTHKTHPA3207-73-78 03:21:00 Test Item Value Reference Range Interpretation Comments Basophils (test code = 0.8 See_Comment [Aut omated message] The Basophils) system which ge nerated this result tra nsmitted reference range : <=1.0. The reference r annemarie was not used to int erpret this result as normal/abnormal . [facility] HospitalEgpdzxyDIGVFXWROY0310-72-68 03:21:00 Test Item Value Reference Range Interpretation Comments Basophils # (test code 0.1 See_Comment [Aut omated message] The = Basophils #) system which generated this result tra nsmitted reference range : <=0.2. The reference r annemarie was not used to int erpret this result as normal/abnormal . [facility] HospitalXhrujgdMTAOXNJZRI9065-50-02 03:21:00 Test Item Value Reference Range Interpretation Comments Monocytes # (test code 1.0 See_Comment [Aut omated message] The = Monocytes #) system which generated this result tra nsmitted reference range : <=0.8. The reference r annemarie was not used to int erpret this result as normal/abnormal . [facility] HospitalUxdahlvAJPEXABWDE4794-74-61 03:21:00 Test Item Value Reference Range Interpretation Comments Eosinophils # (test code 0.2 See_Comment [A utomated message] The = Eosinophils #) system whic h generated this result tra nsmitted reference range : <=0.5. The reference r annemarie was not used to int erpret this result as normal/abnormal . [facility] HospitalNvvtjzuCMGAETZGHW5449-73-96 03:21:00 Test Item Value Reference Range Interpretation Comments Segs (test code = Segs) 64.7 45.0-75.0 [facility] YVXFSFX2980-88-11 03:21:00 Test Item Value Reference Range Interpretation Comments Total CK (test code = Total CK) 3725 12-191 [facility]qyibxzDUTCOZXVSUFJ8052-24-38 03:21:00 Test Item Value Reference Range Interpretation Comments AGAP (test code = AGAP) 14.1 10.0-20.0 [facility]KrsjsndXCBFEKNOAMAX2981-25-46 03:21:00 Test Item Value Reference Range Interpretation Comments B/C Ratio (test code = B/C Ratio) 11 6-25 [facility] HospitalIjmloybGPXAYZOYORIZ4182-79-65 03:21:00 Test Item Value Reference Range Interpretation Comments Globulin (test code = Globulin) 3.2 2.7-4.2 [facility] HospitalQhqqizmSRMMUBFXHZUT8133-38-70 03:21:00 Test Item Value Reference Range Interpretation Comments A/G Ratio (test code = A/G Ratio) 1.3 0.7-1.6 [facility] HospitalKraisynWVVYKAIXTAXA8026-51-11 03:21:00 Test Item Value Reference Range Interpretation Comments Bili Total (test code = Bili Total) 0.4 0.2-1.3 [facility] HospitalHmykrolBDFLSPEQXZFL5926-04-43 03:21:00 Test Item Value Reference Range Interpretation Comments eGFR (test code = eGFR) 102 [facility] HospitalHgwcyseCSYSGEBQSJQC5872-02-40 03:21:00 Test Item Value Reference Range Interpretation Comments Albumin Lvl (test code = Albumin Lvl) 4.2 3.5-5.0 [facility] HospitalQyervbzWWVYGHPPEGKV4538-68-96 03:21:00 Test Item Value Reference Range Interpretation Comments Alk Phos (test code = Alk Phos) 48 39-136 [facility] HospitalLkdkpwhBOQIXQNKOTEQ1219-10-85 03:21:00 Test Item Value Reference Range Interpretation Comments AST (test code = AST) 144 See_Comment [Auto mated message] The system which ge nerated this result transmit abdelrahman reference range : <=37. The reference range was not used to interpr et this result as gurpreet l/abnormal. [facility] HospitalSjgnqtpQTQPTYBURLVM9307-76-48 03:21:00 Test Item Value Reference Range Interpretation Comments Glucose Lvl (test code = Glucose Lvl) 75 70-99 [facility] HospitalJsxcddiJUQLEKRFLOAW9021-15-32 03:21:00 Test Item Value Reference Range Interpretation Comments BUN (test code = BUN) 11 7- [facility] HospitalLupthwbIUICSBRVOPHY1086-79-75 03:21:00 Test Item Value Reference Range Interpretation Comments Potassium Lvl (test code = Potassium 4.1 3.5-5.1 Lvl) [facility] HospitalRjtrvwuNDPLTNQRVGAP2034-30-01 03:21:00 Test Item Value Reference Range Interpretation Comments Creatinine Lvl (test code = Creatinine 1.00 0.50-1.40 Lvl) [facility] HospitalJyehoqbIVOXGRXYZGYW7193-77-52 03:21:00 Test Item Value Reference Range Interpretation Comments Sodium Lvl (test code = Sodium Lvl) 140 135-145 [facility] HospitalGjalthcIYDNUKMEPKYE6145-92-02 03:21:00 Test Item Value Reference Range Interpretation Comments Chloride Lvl (test code = Chloride Lvl) 106 95-109 [facility] HospitalXpcmqmpJXBDALZDMVSX9302-76-74 03:21:00 Test Item Value Reference Range Interpretation Comments CO2 (test code = CO2) 24 24-32 [facility] HospitalSnjadiiLLSLBEQHPDRM6409-90-80 03:21:00 Test Item Value Reference Range Interpretation Comments Total Protein (test code = Total 7.4 6.4-8.4 Protein) [facility] HospitalMyvhzbjEYVOBLZUAQCR6780-16-86 03:21:00 Test Item Value Reference Range Interpretation Comments Calcium Lvl (test code = Calcium Lvl) 9.1 8.5-10.5 [facility] HospitalYqhdmwbSOOQODSWUNTU1490-10-53 03:21:00 Test Item Value Reference Range Interpretation Comments ALT (test code = ALT) 52 See_Comment [Auto mated message] The system which ge nerated this result transmit abdelrahman reference range : <=65. The reference range was not used to interpr et this result as gurpreet l/abnormal. [facility] HospitalKhqvellGLFOGEBLHP7174-11-88 03:21:00 Test Item Value Reference Range Interpretation Comments MCV (test code = MCV) 86.0 80.0-94.0 [facility] HospitalHnfbzfuWJASEMIKPC4554-95-90 03:21:00 Test Item Value Reference Range Interpretation Comments MCH (test code = MCH) 29.7 pg 27.0-31.0 [facility] HospitalFdxshzeRGKSBXKXTI9476-09-20 03:21:00 Test Item Value Reference Range Interpretation Comments Hct (test code = Hct) 41.0 42.0-54.0 [facility] HospitalCgxdqrxMCXSBXLXOU3284-02-26 03:21:00 Test Item Value Reference Range Interpretation Comments RBC (test code = RBC) 4.77 4.70-6.10 [facility] HospitalIolxybfAVVSPAYQAN6612-96-70 03:21:00 Test Item Value Reference Range Interpretation Comments WBC (test code = WBC) 8.8 3.7-10.4 [facility] HospitalZkktiqfHCDBNHGHRR5059-37-69 03:21:00 Test Item Value Reference Range Interpretation Comments Hgb (test code = Hgb) 14.2 14.0-18.0 [facility] HospitalWotmemeXLUYHTRUHH1483-00-95 03:21:00 Test Item Value Reference Range Interpretation Comments Platelet (test code = Platelet) 141 133-450 [facility] HospitalOhneaxdJGLWRWUGJS0098-00-50 03:21:00 Test Item Value Reference Range Interpretation Comments MCHC (test code = MCHC) 34.5 32.0-36.0 [facility] HospitalAfdnatzGEZFDAVSWM1559-66-85 03:21:00 Test Item Value Reference Range Interpretation Comments RDW (test code = RDW) 13.5 11.5-14.5 [facility] HospitalMdwwlfrMUGSDMGVWZ4759-60-93 03:21:00 Test Item Value Reference Range Interpretation Comments MPV (test code = MPV) 8.9 7.4-10.4 [facility] HospitalEfhjwafKSQHZFOBCT9157-95-74 03:21:00 Test Item Value Reference Range Interpretation Comments Lymphocytes (test code = Lymphocytes) 21.1 20.0-40.0 [facility] HospitalAahrqgjVZLOEXLFMA3554-12-65 03:21:00 Test Item Value Reference Range Interpretation Comments Monocytes (test code = Monocytes) 11.7 2.0-12.0 [facility] HospitalYgdhusuRNDAJEOELJ3815-09-16 03:21:00 Test Item Value Reference Range Interpretation Comments Lymphocytes # (test code = Lymphocytes 1.8 1.0-5.5 #) [facility] HospitalBylzdmgRFTQHDLSZG4708-65-28 03:21:00 Test Item Value Reference Range Interpretation Comments Segs-Bands # (test code = Segs-Bands #) 5.7 1.5-8.1 [facility] HospitalLoqxnbwVYYTTUCWGD7250-85-65 03:21:00 Test Item Value Reference Range Interpretation Comments Eosinophils (test code = 1.7 See_Comment [A utomated message] The Eosinophils) system which ge nerated this result tra nsmitted reference range : <=4.0. The reference r annemarie was not used to int erpret this result as normal/abnormal . [facility] HospitalHmknmsoJAWRTEWYDW8300-53-00 03:21:00 Test Item Value Reference Range Interpretation Comments Basophils (test code = 0.8 See_Comment [Aut omated message] The Basophils) system which ge nerated this result tra nsmitted reference range : <=1.0. The reference r annemarie was not used to int erpret this result as normal/abnormal . [facility] HospitalFqkfbppVOKOIIMNFI0541-73-81 03:21:00 Test Item Value Reference Range Interpretation Comments Basophils # (test code 0.1 See_Comment [Aut omated message] The = Basophils #) system which generated this result tra nsmitted reference range : <=0.2. The reference r annemarie was not used to int erpret this result as normal/abnormal . [facility] HospitalDretjzdCTHQQAKKKA4038-88-57 03:21:00 Test Item Value Reference Range Interpretation Comments Monocytes # (test code 1.0 See_Comment [Aut omated message] The = Monocytes #) system which generated this result tra nsmitted reference range : <=0.8. The reference r annemarie was not used to int erpret this result as normal/abnormal . [facility] HospitalGwdevakBZNKXMDPVA6647-60-35 03:21:00 Test Item Value Reference Range Interpretation Comments Eosinophils # (test code 0.2 See_Comment [A utomated message] The = Eosinophils #) system whic h generated this result tra nsmitted reference range : <=0.5. The reference r annemarie was not used to int erpret this result as normal/abnormal . [facility] HospitalXdtuajpVYYPMQAGOE1298-73-04 03:21:00 Test Item Value Reference Range Interpretation Comments Segs (test code = Segs) 64.7 45.0-75.0 [facility]2017-01-01 03:21:00 Test Item Value Reference Range Interpretation Comments Total CK (test code = Total CK) 3725 12-191 [facility] HospitalVjaagqtLLMIYICHDAPC2026-30-99 03:21:00 Test Item Value Reference Range Interpretation Comments AGAP (test code = AGAP) 14.1 10.0-20.0 [facility] HospitalEnbbzliLIUKJMPRHBPP5631-95-54 03:21:00 Test Item Value Reference Range Interpretation Comments B/C Ratio (test code = B/C Ratio) 11 6-25 [facility] HospitalIitmltfOTUGSHZUGNQO8844-32-99 03:21:00 Test Item Value Reference Range Interpretation Comments Globulin (test code = Globulin) 3.2 2.7-4.2 [facility] HospitalQryovofJVEGMULRTBXV9800-98-78 03:21:00 Test Item Value Reference Range Interpretation Comments A/G Ratio (test code = A/G Ratio) 1.3 0.7-1.6 [facility] HospitalSjdkvrrAHXEVGHGOCRW7199-77-79 03:21:00 Test Item Value Reference Range Interpretation Comments Bili Total (test code = Bili Total) 0.4 0.2-1.3 [facility] HospitalDyuxovbKYNUTHGPHGMK8762-94-39 03:21:00 Test Item Value Reference Range Interpretation Comments eGFR (test code = eGFR) 102 [facility] HospitalYcxshsaNZUSPNTVTHAT8241-46-49 03:21:00 Test Item Value Reference Range Interpretation Comments Albumin Lvl (test code = Albumin Lvl) 4.2 3.5-5.0 [facility] HospitalYuazigpQBYYMIXSBMJM0027-26-85 03:21:00 Test Item Value Reference Range Interpretation Comments Alk Phos (test code = Alk Phos) 48 39-136 [facility] HospitalCusabvxMTDWUAMQHVPP2629-00-94 03:21:00 Test Item Value Reference Range Interpretation Comments AST (test code = AST) 144 See_Comment [Auto mated message] The system which ge nerated this result transmit abdelrahman reference range : <=37. The reference range was not used to interpr et this result as gurpreet l/abnormal. [facility] HospitalKrnrcytWJKAWMSNWAUL7430-65-58 03:21:00 Test Item Value Reference Range Interpretation Comments Glucose Lvl (test code = Glucose Lvl) 75 70-99 [facility] HospitalGhgmifdEHNCBVBDZQXK2602-38-76 03:21:00 Test Item Value Reference Range Interpretation Comments BUN (test code = BUN) 11 7-22 [facility] HospitalZtbqmijTSKXCVPAKPMC5283-25-78 03:21:00 Test Item Value Reference Range Interpretation Comments Potassium Lvl (test code = Potassium 4.1 3.5-5.1 Lvl) [facility] HospitalMcvhyyvEBURSMPQCMVY4621-20-44 03:21:00 Test Item Value Reference Range Interpretation Comments Creatinine Lvl (test code = Creatinine 1.00 0.50-1.40 Lvl) [facility] HospitalBossxqfVYCRYUAYCICK7329-77-69 03:21:00 Test Item Value Reference Range Interpretation Comments Sodium Lvl (test code = Sodium Lvl) 140 135-145 [facility] HospitalEdmlhsiDFVYIXVFRGQH0720-62-73 03:21:00 Test Item Value Reference Range Interpretation Comments Chloride Lvl (test code = Chloride Lvl) 106 95-109 [facility] HospitalDbskamsZLCQLOVKHZQN1545-93-51 03:21:00 Test Item Value Reference Range Interpretation Comments CO2 (test code = CO2) 24 24-32 [facility] HospitalLlpheuvMQHLRQIHCTUN7825-87-54 03:21:00 Test Item Value Reference Range Interpretation Comments Total Protein (test code = Total 7.4 6.4-8.4 Protein) [facility] HospitalIrmsqflOVZKVJPMYKIH8466-20-70 03:21:00 Test Item Value Reference Range Interpretation Comments Calcium Lvl (test code = Calcium Lvl) 9.1 8.5-10.5 [facility] HospitalYptsymaFKYIFCKQBZHC1698-80-66 03:21:00 Test Item Value Reference Range Interpretation Comments ALT (test code = ALT) 52 See_Comment [Auto mated message] The system which ge nerated this result transmit abdelrahman reference range : <=65. The reference range was not used to interpr et this result as gurpreet l/abnormal. [facility] HospitalGrbkqgePAHRNMWWPS6334-69-24 03:21:00 Test Item Value Reference Range Interpretation Comments MCV (test code = MCV) 86.0 80.0-94.0 [facility] HospitalDfjzhpjQIMOOTMSEZ8942-85-60 03:21:00 Test Item Value Reference Range Interpretation Comments MCH (test code = MCH) 29.7 pg 27.0-31.0 [facility] HospitalRissqfqQXTCSGWWTL7092-62-81 03:21:00 Test Item Value Reference Range Interpretation Comments Hct (test code = Hct) 41.0 42.0-54.0 [facility] HospitalAdzyssbDJMJSSJJMK5005-44-01 03:21:00 Test Item Value Reference Range Interpretation Comments RBC (test code = RBC) 4.77 4.70-6.10 [facility] HospitalTmnmuwoJAUJGFRWMR9492-58-47 03:21:00 Test Item Value Reference Range Interpretation Comments WBC (test code = WBC) 8.8 3.7-10.4 [facility] HospitalDoanbctWDPIXNLDMH5574-22-36 03:21:00 Test Item Value Reference Range Interpretation Comments Hgb (test code = Hgb) 14.2 14.0-18.0 [facility] HospitalPjwtkoaZTYDSSECPY1222-26-36 03:21:00 Test Item Value Reference Range Interpretation Comments Platelet (test code = Platelet) 141 133-450 [facility] HospitalXsfdiufUXASRBUPAY9446-76-75 03:21:00 Test Item Value Reference Range Interpretation Comments MCHC (test code = MCHC) 34.5 32.0-36.0 [facility] HospitalKffpggwRNHGHIPDUO7425-00-17 03:21:00 Test Item Value Reference Range Interpretation Comments RDW (test code = RDW) 13.5 11.5-14.5 [facility] HospitalHksiixjYQIQKIYGPR0845-61-63 03:21:00 Test Item Value Reference Range Interpretation Comments MPV (test code = MPV) 8.9 7.4-10.4 [facility] HospitalWlqlqgcGSLMVWWPUF3559-38-27 03:21:00 Test Item Value Reference Range Interpretation Comments Lymphocytes (test code = Lymphocytes) 21.1 20.0-40.0 [facility] HospitalKjxgngcHZCGHFTEIF4606-01-44 03:21:00 Test Item Value Reference Range Interpretation Comments Monocytes (test code = Monocytes) 11.7 2.0-12.0 [facility] HospitalZorekeqZVXAJMSGPG6894-82-15 03:21:00 Test Item Value Reference Range Interpretation Comments Lymphocytes # (test code = Lymphocytes 1.8 1.0-5.5 #) [facility] HospitalZjukjwoKVOAXDUOGN3255-33-66 03:21:00 Test Item Value Reference Range Interpretation Comments Segs-Bands # (test code = Segs-Bands #) 5.7 1.5-8.1 [facility] HospitalXjahpueKSQQETBTCI0078-75-32 03:21:00 Test Item Value Reference Range Interpretation Comments Eosinophils (test code = 1.7 See_Comment [A utomated message] The Eosinophils) system which ge nerated this result tra nsmitted reference range : <=4.0. The reference r annemarie was not used to int erpret this result as normal/abnormal . [facility] HospitalRgelajfLCSBZFQSNG3249-11-36 03:21:00 Test Item Value Reference Range Interpretation Comments Basophils (test code = 0.8 See_Comment [Aut omated message] The Basophils) system which ge nerated this result tra nsmitted reference range : <=1.0. The reference r annemarie was not used to int erpret this result as normal/abnormal . [facility] HospitalIjwhjbqEODLTMGWXE3867-03-56 03:21:00 Test Item Value Reference Range Interpretation Comments Basophils # (test code 0.1 See_Comment [Aut omated message] The = Basophils #) system which generated this result tra nsmitted reference range : <=0.2. The reference r annemarie was not used to int erpret this result as normal/abnormal . [facility] HospitalKzbbwbuESNXNSQSFY2748-78-68 03:21:00 Test Item Value Reference Range Interpretation Comments Monocytes # (test code 1.0 See_Comment [Aut omated message] The = Monocytes #) system which generated this result tra nsmitted reference range : <=0.8. The reference r annemarie was not used to int erpret this result as normal/abnormal . [facility] HospitalXmlpxfeMOTRLDFAEA1432-72-52 03:21:00 Test Item Value Reference Range Interpretation Comments Eosinophils # (test code 0.2 See_Comment [A utomated message] The = Eosinophils #) system whic h generated this result tra nsmitted reference range : <=0.5. The reference r annemarie was not used to int erpret this result as normal/abnormal . [facility] HospitalVxflujkLYMHAXBDAL4873-38-67 03:21:00 Test Item Value Reference Range Interpretation Comments Segs (test code = Segs) 64.7 45.0-75.0 [facility]2017-01-01 03:21:00 Test Item Value Reference Range Interpretation Comments Total CK (test code = Total CK) 3725 12-191 [facility] HospitalXkvjcswOAFYBXMFGOUO9289-43-72 03:21:00 Test Item Value Reference Range Interpretation Comments AGAP (test code = AGAP) 14.1 10.0-20.0 [facility] HospitalPcblhovPZVFOLJQAFJO6332-99-34 03:21:00 Test Item Value Reference Range Interpretation Comments B/C Ratio (test code = B/C Ratio) 11 6-25 [facility] HospitalHergxqqBSUTYWLQUTTB3041-87-11 03:21:00 Test Item Value Reference Range Interpretation Comments Globulin (test code = Globulin) 3.2 2.7-4.2 [facility] HospitalGqjxjroPCPOCSCGLHDN5443-83-92 03:21:00 Test Item Value Reference Range Interpretation Comments A/G Ratio (test code = A/G Ratio) 1.3 0.7-1.6 [facility] HospitalBvxwcmsAVBDRAPYFVIA8155-85-50 03:21:00 Test Item Value Reference Range Interpretation Comments Bili Total (test code = Bili Total) 0.4 0.2-1.3 [facility] HospitalVpzshnsGYGTMJQQLOVK8645-42-22 03:21:00 Test Item Value Reference Range Interpretation Comments eGFR (test code = eGFR) 102 [facility] HospitalZtspepoJOAVNFPVCZSG5527-69-65 03:21:00 Test Item Value Reference Range Interpretation Comments Albumin Lvl (test code = Albumin Lvl) 4.2 3.5-5.0 [facility] HospitalXxrbyxrRCKPFIRRLSXF6499-97-66 03:21:00 Test Item Value Reference Range Interpretation Comments Alk Phos (test code = Alk Phos) 48 39-136 [facility] HospitalUovjynoOBTYHTZCABWZ2980-74-73 03:21:00 Test Item Value Reference Range Interpretation Comments AST (test code = AST) 144 See_Comment [Auto mated message] The system which ge nerated this result transmit abdelrahman reference range : <=37. The reference range was not used to interpr et this result as gurpreet l/abnormal. [facility] HospitalIgxvcdyZZCFRXOKKUII4412-03-98 03:21:00 Test Item Value Reference Range Interpretation Comments Glucose Lvl (test code = Glucose Lvl) 75 70-99 [facility] HospitalJbobaqxEMHEYARQFYLY1238-58-95 03:21:00 Test Item Value Reference Range Interpretation Comments BUN (test code = BUN) 11 7-22 [facility] HospitalJzbucsnSLWQTPETXHEH1620-59-07 03:21:00 Test Item Value Reference Range Interpretation Comments Potassium Lvl (test code = Potassium 4.1 3.5-5.1 Lvl) [facility] HospitalNbjzsvqOPFKBJLOLBID0265-60-03 03:21:00 Test Item Value Reference Range Interpretation Comments Creatinine Lvl (test code = Creatinine 1.00 0.50-1.40 Lvl) [facility] HospitalTcnllkzLFHULMLPOWFU2736-23-47 03:21:00 Test Item Value Reference Range Interpretation Comments Sodium Lvl (test code = Sodium Lvl) 140 135-145 [facility] HospitalEexwwntVXCVARWSJECJ5276-86-90 03:21:00 Test Item Value Reference Range Interpretation Comments Chloride Lvl (test code = Chloride Lvl) 106 95-109 [facility] HospitalRiljiwqYQLVMJJAJTVI6286-17-62 03:21:00 Test Item Value Reference Range Interpretation Comments CO2 (test code = CO2) 24 24-32 [facility] HospitalBbqbvcdNYRWRWWXODAS8043-86-65 03:21:00 Test Item Value Reference Range Interpretation Comments Total Protein (test code = Total 7.4 6.4-8.4 Protein) [facility] HospitalUqjkyetYYEWDLUXOTBZ4610-59-49 03:21:00 Test Item Value Reference Range Interpretation Comments Calcium Lvl (test code = Calcium Lvl) 9.1 8.5-10.5 [facility]GvyvfzeFNZKREOBLCSR4214-06-15 03:21:00 Test Item Value Reference Range Interpretation Comments ALT (test code = ALT) 52 See_Comment [Auto mated message] The system which ge nerated this result transmit abdelrahman reference range : <=65. The reference range was not used to interpr et this result as gurpreet l/abnormal. [facility] HospitalDydnuhkAVWZTWWXTD6571-00-72 03:21:00 Test Item Value Reference Range Interpretation Comments MCV (test code = MCV) 86.0 80.0-94.0 [facility] HospitalBaumzwfYPYCJYGRIM3743-53-27 03:21:00 Test Item Value Reference Range Interpretation Comments MCH (test code = MCH) 29.7 pg 27.0-31.0 [facility] HospitalWldcjtyNOBVNITQPX6458-96-08 03:21:00 Test Item Value Reference Range Interpretation Comments Hct (test code = Hct) 41.0 42.0-54.0 [facility] HospitalGedvjjeRLGJCPVSYL7999-52-76 03:21:00 Test Item Value Reference Range Interpretation Comments RBC (test code = RBC) 4.77 4.70-6.10 [facility] HospitalEyucxtaGAXOOAKACV4133-09-69 03:21:00 Test Item Value Reference Range Interpretation Comments WBC (test code = WBC) 8.8 3.7-10.4 [facility] HospitalQpeghqkOEAZUXMLFM7548-40-48 03:21:00 Test Item Value Reference Range Interpretation Comments Hgb (test code = Hgb) 14.2 14.0-18.0 [facility] HospitalMwjuiwyOQHNYTGTFG8516-57-35 03:21:00 Test Item Value Reference Range Interpretation Comments Platelet (test code = Platelet) 141 133-450 [facility] HospitalJhhmxktYVIZCLJZHT1383-11-88 03:21:00 Test Item Value Reference Range Interpretation Comments MCHC (test code = MCHC) 34.5 32.0-36.0 [facility] HospitalXsnsboeVBQTYYXOGC8423-88-39 03:21:00 Test Item Value Reference Range Interpretation Comments RDW (test code = RDW) 13.5 11.5-14.5 [facility] HospitalIsaedcaPPSSVFVJMX6269-16-13 03:21:00 Test Item Value Reference Range Interpretation Comments MPV (test code = MPV) 8.9 7.4-10.4 [facility] HospitalYwhysonAIVLAHWADU5582-16-90 03:21:00 Test Item Value Reference Range Interpretation Comments Lymphocytes (test code = Lymphocytes) 21.1 20.0-40.0 [facility] HospitalOqafddgATHUBEAGVB0834-71-37 03:21:00 Test Item Value Reference Range Interpretation Comments Monocytes (test code = Monocytes) 11.7 2.0-12.0 [facility] HospitalIurcqqpBPJEEESUIC5142-40-64 03:21:00 Test Item Value Reference Range Interpretation Comments Lymphocytes # (test code = Lymphocytes 1.8 1.0-5.5 #) [facility] HospitalHtmpihdDRYTFWDYOY2905-11-08 03:21:00 Test Item Value Reference Range Interpretation Comments Segs-Bands # (test code = Segs-Bands #) 5.7 1.5-8.1 [facility] HospitalViuvvrxIWNVYSVLHR5384-32-59 03:21:00 Test Item Value Reference Range Interpretation Comments Eosinophils (test code = 1.7 See_Comment [A utomated message] The Eosinophils) system which ge nerated this result tra nsmitted reference range : <=4.0. The reference r annemarie was not used to int erpret this result as normal/abnormal . [facility] HospitalGteryvvNKQBLWUBOP6358-88-76 03:21:00 Test Item Value Reference Range Interpretation Comments Basophils (test code = 0.8 See_Comment [Aut omated message] The Basophils) system which ge nerated this result tra nsmitted reference range : <=1.0. The reference r annemarie was not used to int erpret this result as normal/abnormal . [facility] HospitalUxnsensPTLWFZBHHQ7653-55-28 03:21:00 Test Item Value Reference Range Interpretation Comments Basophils # (test code 0.1 See_Comment [Aut omated message] The = Basophils #) system which generated this result tra nsmitted reference range : <=0.2. The reference r annemarie was not used to int erpret this result as normal/abnormal . [facility] HospitalUjsbnwjXYWHFTWJTS7720-04-77 03:21:00 Test Item Value Reference Range Interpretation Comments Monocytes # (test code 1.0 See_Comment [Aut omated message] The = Monocytes #) system which generated this result tra nsmitted reference range : <=0.8. The reference r annemarie was not used to int erpret this result as normal/abnormal . [facility] HospitalCcuzokvRLEECAIOKD6752-71-19 03:21:00 Test Item Value Reference Range Interpretation Comments Eosinophils # (test code 0.2 See_Comment [A utomated message] The = Eosinophils #) system whic h generated this result tra nsmitted reference range : <=0.5. The reference r annemarie was not used to int erpret this result as normal/abnormal . [facility]KiollxqOFUMYOQWQN8254-37-97 03:21:00 Test Item Value Reference Range Interpretation Comments Segs (test code = Segs) 64.7 45.0-75.0 [facility] [id number] 03:21:00 Test Item Value Reference Range Interpretation Comments Total CK (test code = Total CK) 3725 12-191 [facility] HospitalNptnitpDLPFTLIBECLU2348-77-44 03:21:00 Test Item Value Reference Range Interpretation Comments AGAP (test code = AGAP) 14.1 10.0-20.0 [facility] HospitalNilrhaiKGORNKXYXECE4617-33-39 03:21:00 Test Item Value Reference Range Interpretation Comments B/C Ratio (test code = B/C Ratio) 11 6-25 [facility] HospitalMthtuqbFLMVQMINMDCG3421-08-05 03:21:00 Test Item Value Reference Range Interpretation Comments Globulin (test code = Globulin) 3.2 2.7-4.2 [facility] HospitalPjgehkxUJELDAVIJOMJ8601-41-66 03:21:00 Test Item Value Reference Range Interpretation Comments A/G Ratio (test code = A/G Ratio) 1.3 0.7-1.6 [facility] HospitalRkinbckMCSQYYNYZICG9119-94-84 03:21:00 Test Item Value Reference Range Interpretation Comments Bili Total (test code = Bili Total) 0.4 0.2-1.3 [facility] HospitalKgwgwhnOEQQWIQJZLNS8315-09-33 03:21:00 Test Item Value Reference Range Interpretation Comments eGFR (test code = eGFR) 102 [facility] HospitalOjzqtztXELRTMYEYPIK4708-27-18 03:21:00 Test Item Value Reference Range Interpretation Comments Albumin Lvl (test code = Albumin Lvl) 4.2 3.5-5.0 [facility] HospitalGngsfvzTTQMSYSUSNRW3297-70-24 03:21:00 Test Item Value Reference Range Interpretation Comments Alk Phos (test code = Alk Phos) 48 39-136 [facility] HospitalBnrkqtpTVONBMIYRXRC8550-28-02 03:21:00 Test Item Value Reference Range Interpretation Comments AST (test code = AST) 144 See_Comment [Auto mated message] The system which ge nerated this result transmit abdelrahman reference range : <=37. The reference range was not used to interpr et this result as gurpreet l/abnormal. [facility] HospitalTbbirvmBAOJRKRABFJZ4193-51-88 03:21:00 Test Item Value Reference Range Interpretation Comments Glucose Lvl (test code = Glucose Lvl) 75 70-99 [facility] HospitalNpbhppdBWDCLDLYMRYJ3707-56-70 03:21:00 Test Item Value Reference Range Interpretation Comments BUN (test code = BUN) 11 7-22 [facility] HospitalTkjtpgnWBXLKIMFFNCD5538-86-18 03:21:00 Test Item Value Reference Range Interpretation Comments Potassium Lvl (test code = Potassium 4.1 3.5-5.1 Lvl) [facility] HospitalXccgfbaBITRRJTWTTYV9024-29-92 03:21:00 Test Item Value Reference Range Interpretation Comments Creatinine Lvl (test code = Creatinine 1.00 0.50-1.40 Lvl) [facility] HospitalGmfyxheDMWSZHEUZXLL6532-25-20 03:21:00 Test Item Value Reference Range Interpretation Comments Sodium Lvl (test code = Sodium Lvl) 140 135-145 [facility] HospitalYsvhexsAZRJORPUKZEK8128-08-85 03:21:00 Test Item Value Reference Range Interpretation Comments Chloride Lvl (test code = Chloride Lvl) 106 95-109 [facility] HospitalQdxoyjdORXVTCAEDHUI3842-59-72 03:21:00 Test Item Value Reference Range Interpretation Comments CO2 (test code = CO2) 24 24-32 [facility] HospitalQntdusdZANJPMYAIRTB9702-15-01 03:21:00 Test Item Value Reference Range Interpretation Comments Total Protein (test code = Total 7.4 6.4-8.4 Protein) [facility] HospitalIybczuwDSCQVRXVZEVQ1162-34-91 03:21:00 Test Item Value Reference Range Interpretation Comments Calcium Lvl (test code = Calcium Lvl) 9.1 8.5-10.5 [facility] HospitalYgteqrhTZICXKFGHUHF1137-81-59 03:21:00 Test Item Value Reference Range Interpretation Comments ALT (test code = ALT) 52 See_Comment [Auto mated message] The system which ge nerated this result transmit abdelrahman reference range : <=65. The reference range was not used to interpr et this result as gurpreet l/abnormal. [facility] HospitalEgvjzafVPFESHQSLB3187-63-39 03:21:00 Test Item Value Reference Range Interpretation Comments MCV (test code = MCV) 86.0 80.0-94.0 [facility] HospitalNwfyhdtPIYBTACLCW7836-91-92 03:21:00 Test Item Value Reference Range Interpretation Comments MCH (test code = MCH) 29.7 pg 27.0-31.0 [facility] HospitalWvijkzhASUKZCQEWG8147-57-61 03:21:00 Test Item Value Reference Range Interpretation Comments Hct (test code = Hct) 41.0 42.0-54.0 [facility] HospitalJvtaeppOGXQENEMJX1910-54-04 03:21:00 Test Item Value Reference Range Interpretation Comments RBC (test code = RBC) 4.77 4.70-6.10 [facility] HospitalPpqtftfSVWJXLEEKN2805-84-21 03:21:00 Test Item Value Reference Range Interpretation Comments WBC (test code = WBC) 8.8 3.7-10.4 [facility] HospitalPwklcotGPOAMNHQWS9826-50-63 03:21:00 Test Item Value Reference Range Interpretation Comments Hgb (test code = Hgb) 14.2 14.0-18.0 [facility] HospitalMuzoftvZIBZTBNFEG9361-96-66 03:21:00 Test Item Value Reference Range Interpretation Comments Platelet (test code = Platelet) 141 133-450 [facility] HospitalNjjceiaZXWTJZXBJK6358-50-83 03:21:00 Test Item Value Reference Range Interpretation Comments MCHC (test code = MCHC) 34.5 32.0-36.0 [facility] HospitalGsslleaURBWVQOJNP0023-57-35 03:21:00 Test Item Value Reference Range Interpretation Comments RDW (test code = RDW) 13.5 11.5-14.5 [facility] HospitalVnfvmltCUPWIBHDLU8638-80-44 03:21:00 Test Item Value Reference Range Interpretation Comments MPV (test code = MPV) 8.9 7.4-10.4 [facility] HospitalAiijrlcBEADQIEBVX8782-12-48 03:21:00 Test Item Value Reference Range Interpretation Comments Lymphocytes (test code = Lymphocytes) 21.1 20.0-40.0 [facility] HospitalQtqthhmSQHQOYPSQC3808-48-04 03:21:00 Test Item Value Reference Range Interpretation Comments Monocytes (test code = Monocytes) 11.7 2.0-12.0 [facility] HospitalHpfayxlOSXYDSEPJQ0696-32-98 03:21:00 Test Item Value Reference Range Interpretation Comments Lymphocytes # (test code = Lymphocytes 1.8 1.0-5.5 #) [facility] HospitalVapmdziNLUWWLUSAQ0030-58-89 03:21:00 Test Item Value Reference Range Interpretation Comments Segs-Bands # (test code = Segs-Bands #) 5.7 1.5-8.1 [facility] HospitalApvupiaGAOFPJKHFP5567-73-91 03:21:00 Test Item Value Reference Range Interpretation Comments Eosinophils (test code = 1.7 See_Comment [A utomated message] The Eosinophils) system which ge nerated this result tra nsmitted reference range : <=4.0. The reference r annemarie was not used to int erpret this result as normal/abnormal . [facility] HospitalLkveqidKWZBIEKPBA7681-08-60 03:21:00 Test Item Value Reference Range Interpretation Comments Basophils (test code = 0.8 See_Comment [Aut omated message] The Basophils) system which ge nerated this result tra nsmitted reference range : <=1.0. The reference r annemarie was not used to int erpret this result as normal/abnormal . [facility] HospitalLppzqyeUPLUSRTRSJ7254-52-93 03:21:00 Test Item Value Reference Range Interpretation Comments Basophils # (test code 0.1 See_Comment [Aut omated message] The = Basophils #) system which generated this result tra nsmitted reference range : <=0.2. The reference r annemarie was not used to int erpret this result as normal/abnormal . [facility] HospitalOvkwvlrNVLWMWXTDL3024-95-22 03:21:00 Test Item Value Reference Range Interpretation Comments Monocytes # (test code 1.0 See_Comment [Aut omated message] The = Monocytes #) system which generated this result tra nsmitted reference range : <=0.8. The reference r annemarie was not used to int erpret this result as normal/abnormal . [facility] HospitalJsuqoezPBBFDJHIRC2227-74-37 03:21:00 Test Item Value Reference Range Interpretation Comments Eosinophils # (test code 0.2 See_Comment [A utomated message] The = Eosinophils #) system whic h generated this result tra nsmitted reference range : <=0.5. The reference r annemarie was not used to int erpret this result as normal/abnormal . [facility] HospitalBwkeoypZGENMHGVNC1417-51-81 03:21:00 Test Item Value Reference Range Interpretation Comments Segs (test code = Segs) 64.7 45.0-75.0 [facility]annCARD[facility]AC MEFROBI4014-15-04 03:21:00 Test Item Value Reference Range Interpretation Comments Total CK (test code = Total CK) 3725 12-191 [facility] HospitalSbypumwTFAVRASDCCRF1279-92-84 03:21:00 Test Item Value Reference Range Interpretation Comments AGAP (test code = AGAP) 14.1 10.0-20.0 [facility] HospitalOlfgpbmZEABWKKXGQIS1698-99-44 03:21:00 Test Item Value Reference Range Interpretation Comments B/C Ratio (test code = B/C Ratio) 11 6-25 [facility] HospitalQidpdyoGQETPLNBGRPB7001-00-60 03:21:00 Test Item Value Reference Range Interpretation Comments Globulin (test code = Globulin) 3.2 2.7-4.2 [facility] HospitalTpsjejzNBODQAQUFJOU8758-80-34 03:21:00 Test Item Value Reference Range Interpretation Comments A/G Ratio (test code = A/G Ratio) 1.3 0.7-1.6 [facility] HospitalNivfmikHWJQMJEGLTHE8153-65-35 03:21:00 Test Item Value Reference Range Interpretation Comments Bili Total (test code = Bili Total) 0.4 0.2-1.3 [facility] HospitalZvjieagBSZHHUPDVVWA2447-46-65 03:21:00 Test Item Value Reference Range Interpretation Comments eGFR (test code = eGFR) 102 [facility] HospitalItgsyxtSYOAZUXKVMOF0582-99-80 03:21:00 Test Item Value Reference Range Interpretation Comments Albumin Lvl (test code = Albumin Lvl) 4.2 3.5-5.0 [facility] HospitalDduiuxrMZGLFXHFGQGL9425-09-81 03:21:00 Test Item Value Reference Range Interpretation Comments Alk Phos (test code = Alk Phos) 48 39-136 [facility] HospitalGsdtghiIXFJGXEORDHU1473-55-72 03:21:00 Test Item Value Reference Range Interpretation Comments AST (test code = AST) 144 See_Comment [Auto mated message] The system which ge nerated this result transmit abdelrahman reference range : <=37. The reference range was not used to interpr et this result as gurpreet l/abnormal. [facility] HospitalThvujmhWZWHBAMHPCHR4256-36-97 03:21:00 Test Item Value Reference Range Interpretation Comments Glucose Lvl (test code = Glucose Lvl) 75 70-99 [facility] HospitalLrkkoxsOECDDFHTQJMQ3952-18-16 03:21:00 Test Item Value Reference Range Interpretation Comments BUN (test code = BUN) 11 7-22 [facility] HospitalTllfnzxSQGPVLQLSWJW3176-50-72 03:21:00 Test Item Value Reference Range Interpretation Comments Potassium Lvl (test code = Potassium 4.1 3.5-5.1 Lvl) [facility] HospitalFdihjxdYNSTEWOELMGZ1216-03-48 03:21:00 Test Item Value Reference Range Interpretation Comments Creatinine Lvl (test code = Creatinine 1.00 0.50-1.40 Lvl) [facility] HospitalBnbpgcuJXFKDLFEWJVE1497-10-28 03:21:00 Test Item Value Reference Range Interpretation Comments Sodium Lvl (test code = Sodium Lvl) 140 135-145 [facility] HospitalFdsucbtWRGKUFIPEWQX8787-46-53 03:21:00 Test Item Value Reference Range Interpretation Comments Chloride Lvl (test code = Chloride Lvl) 106 95-109 [facility] HospitalZwertxtOYXYEYPKZAND7971-66-54 03:21:00 Test Item Value Reference Range Interpretation Comments CO2 (test code = CO2) 24 24-32 [facility] HospitalSrzirzcCATVUBQVECDH7950-66-60 03:21:00 Test Item Value Reference Range Interpretation Comments Total Protein (test code = Total 7.4 6.4-8.4 Protein) [facility] HospitalRwfmoibEXKIWRDNRTAH6500-90-09 03:21:00 Test Item Value Reference Range Interpretation Comments Calcium Lvl (test code = Calcium Lvl) 9.1 8.5-10.5 [facility] HospitalSkbltrpQOPXUGUEOQHZ7053-66-00 03:21:00 Test Item Value Reference Range Interpretation Comments ALT (test code = ALT) 52 See_Comment [Auto mated message] The system which ge nerated this result transmit abdelrahman reference range : <=65. The reference range was not used to interpr et this result as gurpreet l/abnormal. [facility] HospitalEotlfdhVOTTOVZLEC9621-38-12 03:21:00 Test Item Value Reference Range Interpretation Comments MCV (test code = MCV) 86.0 80.0-94.0 [facility] HospitalRcaptocPWWLTNJWCW9716-54-64 03:21:00 Test Item Value Reference Range Interpretation Comments MCH (test code = MCH) 29.7 pg 27.0-31.0 [facility] HospitalQhdeiryNUDXGGQDCW6147-35-66 03:21:00 Test Item Value Reference Range Interpretation Comments Hct (test code = Hct) 41.0 42.0-54.0 [facility] HospitalAvzygwsLCWMICFHUB1363-11-20 03:21:00 Test Item Value Reference Range Interpretation Comments RBC (test code = RBC) 4.77 4.70-6.10 [facility] HospitalJgssxesWLWWYKQYMA2009-87-66 03:21:00 Test Item Value Reference Range Interpretation Comments WBC (test code = WBC) 8.8 3.7-10.4 [facility] HospitalMzfyybsCXSYSWACNH8338-92-31 03:21:00 Test Item Value Reference Range Interpretation Comments Hgb (test code = Hgb) 14.2 14.0-18.0 [facility] HospitalOwgpxhpFARHOCQYXL7980-19-09 03:21:00 Test Item Value Reference Range Interpretation Comments Platelet (test code = Platelet) 141 133-450 [facility] HospitalVnaiysuJFZSXQBXVA7886-37-07 03:21:00 Test Item Value Reference Range Interpretation Comments MCHC (test code = MCHC) 34.5 32.0-36.0 [facility] HospitalVzljlofMPZAJDYVIL1550-31-18 03:21:00 Test Item Value Reference Range Interpretation Comments RDW (test code = RDW) 13.5 11.5-14.5 [facility] HospitalHxyqmflQOWCKODJNS0575-72-10 03:21:00 Test Item Value Reference Range Interpretation Comments MPV (test code = MPV) 8.9 7.4-10.4 [facility] HospitalDohviioAWXUGATNVG3990-68-74 03:21:00 Test Item Value Reference Range Interpretation Comments Lymphocytes (test code = Lymphocytes) 21.1 20.0-40.0 [facility] HospitalVgxgksuWQTIAYOJZR4624-95-18 03:21:00 Test Item Value Reference Range Interpretation Comments Monocytes (test code = Monocytes) 11.7 2.0-12.0 [facility] HospitalLsneaghSZNICDKQXG1661-90-30 03:21:00 Test Item Value Reference Range Interpretation Comments Lymphocytes # (test code = Lymphocytes 1.8 1.0-5.5 #) [facility] HospitalXakjgsxSPCZOGAHGK0285-25-27 03:21:00 Test Item Value Reference Range Interpretation Comments Segs-Bands # (test code = Segs-Bands #) 5.7 1.5-8.1 [facility] HospitalRktiqjwDOLONCDTXF8221-97-39 03:21:00 Test Item Value Reference Range Interpretation Comments Eosinophils (test code = 1.7 See_Comment [A utomated message] The Eosinophils) system which ge nerated this result tra nsmitted reference range : <=4.0. The reference r annemarie was not used to int erpret this result as normal/abnormal . [facility] HospitalMumusauIOIYZUCBUM5850-67-80 03:21:00 Test Item Value Reference Range Interpretation Comments Basophils (test code = 0.8 See_Comment [Aut omated message] The Basophils) system which ge nerated this result tra nsmitted reference range : <=1.0. The reference r annemarie was not used to int erpret this result as normal/abnormal . [facility] HospitalHdfvphrSZWDKNLNMR2557-18-64 03:21:00 Test Item Value Reference Range Interpretation Comments Basophils # (test code 0.1 See_Comment [Aut omated message] The = Basophils #) system which generated this result tra nsmitted reference range : <=0.2. The reference r annemarie was not used to int erpret this result as normal/abnormal . [facility] HospitalOonmcutOEQYUBHYTL5086-68-15 03:21:00 Test Item Value Reference Range Interpretation Comments Monocytes # (test code 1.0 See_Comment [Aut omated message] The = Monocytes #) system which generated this result tra nsmitted reference range : <=0.8. The reference r annemarie was not used to int erpret this result as normal/abnormal . [facility] HospitalIyzjkyzMYMZIRKBRE1328-24-91 03:21:00 Test Item Value Reference Range Interpretation Comments Eosinophils # (test code 0.2 See_Comment [A utomated message] The = Eosinophils #) system whic h generated this result tra nsmitted reference range : <=0.5. The reference r annemarie was not used to int erpret this result as normal/abnormal . [facility] HospitalGdrdasnGGRZTMIOCU9239-06-82 03:21:00 Test Item Value Reference Range Interpretation Comments Segs (test code = Segs) 64.7 45.0-75.0 [place] [id number] 04:48:00 Test Item Value Reference Range Interpretation Comments Etoh (%) (test code = Etoh (%)) no gt [place] [id number] 04:48:00 Test Item Value Reference Range Interpretation Comments Ethanol Lvl (test code = Ethanol Lvl) no gt [facility] ClzcqzoVQBQBDDHXU6359-78-11 04:48:00 Test Item Value Reference Range Interpretation Comments Etoh (%) (test code = Etoh (%)) no gt [facility] PulovgvODHUYKYTDO4320-90-87 04:48:00 Test Item Value Reference Range Interpretation Comments Ethanol Lvl (test code = Ethanol Lvl) no gt [facility] AxaaethUEUCEFSXOV6467-38-24 04:48:00 Test Item Value Reference Range Interpretation Comments Etoh (%) (test code = Etoh (%)) no gt [facility] VqlpjyzUVRCVHOWHQ3979-89-12 04:48:00 Test Item Value Reference Range Interpretation Comments Ethanol Lvl (test code = Ethanol Lvl) no gt [facility] XuhihtyKEVYXVRZPZ8367-53-74 04:48:00 Test Item Value Reference Range Interpretation Comments Etoh (%) (test code = Etoh (%)) no gt [facility] CtdasvvGZDFHDNJBG7790-90-91 04:48:00 Test Item Value Reference Range Interpretation Comments Ethanol Lvl (test code = Ethanol Lvl) no gt [facility] PsbfpiqYBOMPJYSSL5122-37-35 04:48:00 Test Item Value Reference Range Interpretation Comments Etoh (%) (test code = Etoh (%)) no gt [facility] VazvcyoPJKDMOWJQI7105-33-64 04:48:00 Test Item Value Reference Range Interpretation Comments Ethanol Lvl (test code = Ethanol Lvl) no gt [facility] YwkzntlGTLTJBJAAR4893-34-38 04:48:00 Test Item Value Reference Range Interpretation Comments Etoh (%) (test code = Etoh (%)) no gt [facility] LqwelmnCUKLDLYMIR4903-42-03 04:48:00 Test Item Value Reference Range Interpretation Comments Ethanol Lvl (test code = Ethanol Lvl) no gt [facility] RkdboxfSVTZUKCLHD8897-08-10 04:48:00 Test Item Value Reference Range Interpretation Comments Etoh (%) (test code = Etoh (%)) no gt [facility] PnimncuCJVQFDLYED7223-22-17 04:48:00 Test Item Value Reference Range Interpretation Comments Ethanol Lvl (test code = Ethanol Lvl) no gt [facility] QkqgrxlGVBSGARPXA2650-11-73 04:48:00 Test Item Value Reference Range Interpretation Comments Etoh (%) (test code = Etoh (%)) no gt [facility] AtxyyynVPEIPMUAGD4660-56-42 04:48:00 Test Item Value Reference Range Interpretation Comments Ethanol Lvl (test code = Ethanol Lvl) [facility]t [facility] QGVDAH0306-50-96 02:43:00 Test Item Value Reference Range Interpretation Comments UDS Note (test code = See Note *NA*(04/06/16 UDS Note) 8:43 PM) [facility] KQPWSC3604-16-99 02:43:00 Test Item Value Reference Range Interpretation Comments U Opiate Scr (test Negative *NA*(04/06/16 code = U Opiate Scr) 8:43 PM) [facility] JBZOER1185-85-51 02:43:00 Test Item Value Reference Range Interpretation Comments U Benzodia Scr (test Negative *NA*(04/06/16 code = U Benzodia Scr) 8:43 PM) [facility] EPGEZF9299-22-55 02:43:00 Test Item Value Reference Range Interpretation Comments U Cocaine Scr (test Negative *NA*(04/06/16 code = U Cocaine Scr) 8:43 PM) [facility] VGZIYK7148-29-63 02:43:00 Test Item Value Reference Range Interpretation Comments U Phencyc Scr (test Negative *NA*(04/06/16 code = U Phencyc Scr) 8:43 PM) [facility] WRMLDX5574-85-63 02:43:00 Test Item Value Reference Range Interpretation Comments U Odalys Scr (test code Negative *NA*(04/06/16 = U Odalys Scr) 8:43 PM) [facility] FVXAJO3030-70-08 02:43:00 Test Item Value Reference Range Interpretation Comments U Cannab Scr (test Negative *NA*(04/06/16 code = U Cannab Scr) 8:43 PM) [facility] JEVMVQ1065-55-67 02:43:00 Test Item Value Reference Range Interpretation Comments U Amph Scr (test code Negative *NA*(04/06/16 = U Amph Scr) 8:43 PM) [facility] QWCTP4436-08-79 02:43:00 Test Item Value Reference Range Interpretation Comments UA WBC (test code = UA WBC) 3-5 /HPF [facility] AND [id number] 02:43:00 Test Item Value Reference Range Interpretation Comments UA Sq Epi (test code = UA Sq Epi) Rare /LPF [facility] AND RWGUD3244-57-05 02:43:00 Test Item Value Reference Range Interpretation Comments UA RBC (test code = 0-2 /HPF See_Comment [Automa abdelrahman message] The UA RBC) system which ge nerated this result tra nsmitted reference range : <=2. The reference range was not used to interpr et this result as gurpreet l/abnormal. [facility] AND EZDSE5973-80-02 02:43:00 Test Item Value Reference Range Interpretation Comments UA Bacteria (test code = UA Occasional /HPF Bacteria) [facility] AND [id number] 02:43:00 Test Item Value Reference Range Interpretation Comments UA Mucus (test code = UA Mucus) Few /LPF [facility] AND [id number] 02:43:00 Test Item Value Reference Range Interpretation Comments UA Glucose (test code Negative (04/06/16 8:43 = UA Glucose) PM) [facility] AND [id number] 02:43:00 Test Item Value Reference Range Interpretation Comments UA Protein (test code Negative (04/06/16 8:43 = UA Protein) PM) [facility] AND [id number] 02:43:00 Test Item Value Reference Range Interpretation Comments UA pH (test code = UA pH) 5.5 1 5.0-8.0 [facility] AND [id number] 02:43:00 Test Item Value Reference Range Interpretation Comments UA Spec Grav (test code = UA Spec 1.025 1 Grav) [facility] AND [id number] 02:43:00 Test Item Value Reference Range Interpretation Comments UA Ketones (test code = UA >=80 mg/dL Ketones) [facility] AND [id number] 02:43:00 Test Item Value Reference Range Interpretation Comments UA Nitrite (test code Negative (04/06/16 8:43 = UA Nitrite) PM) [facility] AND [id number] 02:43:00 Test Item Value Reference Range Interpretation Comments UA Urobilinogen (test code = UA 0.2 0.1-1.0 Urobilinogen) [facility] [id number] 02:43:00 Test Item Value Reference Range Interpretation Comments UA Blood (test code = Negative (04/06/16 8:43 UA Blood) PM) [facility] [id number] 02:43:00 Test Item Value Reference Range Interpretation Comments UA Bili (test code = Small *ABN*(04/06/16 UA Bili) 8:43 PM) [facility] [id number] 02:43:00 Test Item Value Reference Range Interpretation Comments UA Leuk Est (test code Trace *ABN*(04/06/16 = UA Leuk Est) 8:43 PM) [facility] [id number] 02:43:00 Test Item Value Reference Range Interpretation Comments UA Turbidity (test code = Clear (04/06/16 8:43 UA Turbidity) PM) [facility] [id number] 02:43:00 Test Item Value Reference Range Interpretation Comments UA Color (test code = Yellow *NA*(04/06/16 UA Color) 8:43 PM) [facility] [id number] 02:43:00 Test Item Value Reference Range Interpretation Comments UDS Note (test code = See Note *NA*(04/06/16 UDS Note) 8:43 PM) [facility] [id number] 02:43:00 Test Item Value Reference Range Interpretation Comments U Opiate Scr (test Negative *NA*(04/06/16 code = U Opiate Scr) 8:43 PM) [facility] [id number] 02:43:00 Test Item Value Reference Range Interpretation Comments U Benzodia Scr (test Negative *NA*(04/06/16 code = U Benzodia Scr) 8:43 PM) [facility] [id number] 02:43:00 Test Item Value Reference Range Interpretation Comments U Cocaine Scr (test Negative *NA*(04/06/16 code = U Cocaine Scr) 8:43 PM) [facility] [id number] 02:43:00 Test Item Value Reference Range Interpretation Comments U Phencyc Scr (test Negative *NA*(04/06/16 code = U Phencyc Scr) 8:43 PM) [facility] [id number] 02:43:00 Test Item Value Reference Range Interpretation Comments U Odalys Scr (test code Negative *NA*(04/06/16 = U Odalys Scr) 8:43 PM) [facility] [id number] 02:43:00 Test Item Value Reference Range Interpretation Comments U Cannab Scr (test Negative *NA*(04/06/16 code = U Cannab Scr) 8:43 PM) [facility] [id number] 02:43:00 Test Item Value Reference Range Interpretation Comments U Amph Scr (test code Negative *NA*(04/06/16 = U Amph Scr) 8:43 PM) [facility] [id number] 02:43:00 Test Item Value Reference Range Interpretation Comments UA WBC (test code = UA WBC) 3-5 /HPF [facility] [id number] 02:43:00 Test Item Value Reference Range Interpretation Comments UA Sq Epi (test code = UA Sq Epi) Rare /LPF [facility] [id number] 02:43:00 Test Item Value Reference Range Interpretation Comments UA RBC (test code = 0-2 /HPF See_Comment [Automa abdelrahman message] The UA RBC) system which ge nerated this result tra nsmitted reference range : <=2. The reference range was not used to interpr et this result as gurpreet l/abnormal. [facility] [id number] 02:43:00 Test Item Value Reference Range Interpretation Comments UA Bacteria (test code = UA Occasional /HPF Bacteria) [facility] [id number] 02:43:00 Test Item Value Reference Range Interpretation Comments UA Mucus (test code = UA Mucus) Few /LPF [facility] [id number] 02:43:00 Test Item Value Reference Range Interpretation Comments UA Glucose (test code Negative (04/06/16 8:43 = UA Glucose) PM) [facility] [id number] 02:43:00 Test Item Value Reference Range Interpretation Comments UA Protein (test code Negative (04/06/16 8:43 = UA Protein) PM) [facility] [id number] 02:43:00 Test Item Value Reference Range Interpretation Comments UA pH (test code = UA pH) 5.5 1 5.0-8.0 [facility] [id number] 02:43:00 Test Item Value Reference Range Interpretation Comments UA Spec Grav (test code = UA Spec 1.025 1 Grav) [facility] [id number] 02:43:00 Test Item Value Reference Range Interpretation Comments UA Ketones (test code = UA >=80 mg/dL Ketones) [facility] [id number] 02:43:00 Test Item Value Reference Range Interpretation Comments UA Nitrite (test code Negative (04/06/16 8:43 = UA Nitrite) PM) [facility] [id number] 02:43:00 Test Item Value Reference Range Interpretation Comments UA Urobilinogen (test code = UA 0.2 0.1-1.0 Urobilinogen) [facility] [id number] 02:43:00 Test Item Value Reference Range Interpretation Comments UA Blood (test code = Negative (04/06/16 8:43 UA Blood) PM) [facility] [id number] 02:43:00 Test Item Value Reference Range Interpretation Comments UA Bili (test code = Small *ABN*(04/06/16 UA Bili) 8:43 PM) [facility] [id number] 02:43:00 Test Item Value Reference Range Interpretation Comments UA Leuk Est (test code Trace *ABN*(04/06/16 = UA Leuk Est) 8:43 PM) [facility] [id number] 02:43:00 Test Item Value Reference Range Interpretation Comments UA Turbidity (test code = Clear (04/06/16 8:43 UA Turbidity) PM) [facility] [id number] 02:43:00 Test Item Value Reference Range Interpretation Comments UA Color (test code = Yellow *NA*(04/06/16 UA Color) 8:43 PM) [facility] [id number] 02:43:00 Test Item Value Reference Range Interpretation Comments UDS Note (test code = See Note *NA*(04/06/16 UDS Note) 8:43 PM) [facility] [id number] 02:43:00 Test Item Value Reference Range Interpretation Comments U Opiate Scr (test Negative *NA*(04/06/16 code = U Opiate Scr) 8:43 PM) [facility] [id number] 02:43:00 Test Item Value Reference Range Interpretation Comments U Benzodia Scr (test Negative *NA*(04/06/16 code = U Benzodia Scr) 8:43 PM) [facility] [id number] 02:43:00 Test Item Value Reference Range Interpretation Comments U Cocaine Scr (test Negative *NA*(04/06/16 code = U Cocaine Scr) 8:43 PM) [facility] [id number] 02:43:00 Test Item Value Reference Range Interpretation Comments U Phencyc Scr (test Negative *NA*(04/06/16 code = U Phencyc Scr) 8:43 PM) [facility] [id number] 02:43:00 Test Item Value Reference Range Interpretation Comments U Odalys Scr (test code Negative *NA*(04/06/16 = U Odalys Scr) 8:43 PM) [facility] [id number] 02:43:00 Test Item Value Reference Range Interpretation Comments U Cannab Scr (test Negative *NA*(04/06/16 code = U Cannab Scr) 8:43 PM) [facility] [id number] 02:43:00 Test Item Value Reference Range Interpretation Comments U Amph Scr (test code Negative *NA*(04/06/16 = U Amph Scr) 8:43 PM) [facility] [id number] 02:43:00 Test Item Value Reference Range Interpretation Comments UA WBC (test code = UA WBC) 3-5 /HPF [facility] [id number] 02:43:00 Test Item Value Reference Range Interpretation Comments UA Sq Epi (test code = UA Sq Epi) Rare /LPF [facility] [id number] 02:43:00 Test Item Value Reference Range Interpretation Comments UA RBC (test code = 0-2 /HPF See_Comment [Automa abdelrahman message] The UA RBC) system which ge nerated this result tra nsmitted reference range : <=2. The reference range was not used to interpr et this result as gurpreet l/abnormal. [facility] AND [id number] 02:43:00 Test Item Value Reference Range Interpretation Comments UA Bacteria (test code = UA Occasional /HPF Bacteria) [facility] AND [id number] 02:43:00 Test Item Value Reference Range Interpretation Comments UA Mucus (test code = UA Mucus) Few /LPF [facility] AND [id number] 02:43:00 Test Item Value Reference Range Interpretation Comments UA Glucose (test code Negative (04/06/16 8:43 = UA Glucose) PM) [facility] AND [id number] 02:43:00 Test Item Value Reference Range Interpretation Comments UA Protein (test code Negative (04/06/16 8:43 = UA Protein) PM) [facility] AND [id number] 02:43:00 Test Item Value Reference Range Interpretation Comments UA pH (test code = UA pH) 5.5 1 5.0-8.0 [facility] AND [id number] 02:43:00 Test Item Value Reference Range Interpretation Comments UA Spec Grav (test code = UA Spec 1.025 1 Grav) [facility] AND [id number] 02:43:00 Test Item Value Reference Range Interpretation Comments UA Ketones (test code = UA >=80 mg/dL Ketones) [facility] AND [id number] 02:43:00 Test Item Value Reference Range Interpretation Comments UA Nitrite (test code Negative (04/06/16 8:43 = UA Nitrite) PM) [facility] AND [id number] 02:43:00 Test Item Value Reference Range Interpretation Comments UA Urobilinogen (test code = UA 0.2 0.1-1.0 Urobilinogen) [facility] AND [id number] 02:43:00 Test Item Value Reference Range Interpretation Comments UA Blood (test code = Negative (04/06/16 8:43 UA Blood) PM) [facility] AND [id number] 02:43:00 Test Item Value Reference Range Interpretation Comments UA Bili (test code = Small *ABN*(04/06/16 UA Bili) 8:43 PM) [facility] AND [id number] 02:43:00 Test Item Value Reference Range Interpretation Comments UA Leuk Est (test code Trace *ABN*(04/06/16 = UA Leuk Est) 8:43 PM) [facility] [id number] 02:43:00 Test Item Value Reference Range Interpretation Comments UA Turbidity (test code = Clear (04/06/16 8:43 UA Turbidity) PM) [facility] [id number] 02:43:00 Test Item Value Reference Range Interpretation Comments UA Color (test code = Yellow *NA*(04/06/16 UA Color) 8:43 PM) [facility] [id number] 02:43:00 Test Item Value Reference Range Interpretation Comments UDS Note (test code = See Note *NA*(04/06/16 UDS Note) 8:43 PM) [facility] [id number] 02:43:00 Test Item Value Reference Range Interpretation Comments U Opiate Scr (test Negative *NA*(04/06/16 code = U Opiate Scr) 8:43 PM) [facility] [id number] 02:43:00 Test Item Value Reference Range Interpretation Comments U Benzodia Scr (test Negative *NA*(04/06/16 code = U Benzodia Scr) 8:43 PM) [facility] [id number] 02:43:00 Test Item Value Reference Range Interpretation Comments U Cocaine Scr (test Negative *NA*(04/06/16 code = U Cocaine Scr) 8:43 PM) [facility] [id number] 02:43:00 Test Item Value Reference Range Interpretation Comments U Phencyc Scr (test Negative *NA*(04/06/16 code = U Phencyc Scr) 8:43 PM) [facility] [id number] 02:43:00 Test Item Value Reference Range Interpretation Comments U Odalys Scr (test code Negative *NA*(04/06/16 = U Odalys Scr) 8:43 PM) [facility] [id number] 02:43:00 Test Item Value Reference Range Interpretation Comments U Cannab Scr (test Negative *NA*(04/06/16 code = U Cannab Scr) 8:43 PM) [facility] [id number] 02:43:00 Test Item Value Reference Range Interpretation Comments U Amph Scr (test code Negative *NA*(04/06/16 = U Amph Scr) 8:43 PM) [facility] AND [id number] 02:43:00 Test Item Value Reference Range Interpretation Comments UA WBC (test code = UA WBC) 3-5 /HPF [facility] AND [id number] 02:43:00 Test Item Value Reference Range Interpretation Comments UA Sq Epi (test code = UA Sq Epi) Rare /LPF [facility] AND [id number] 02:43:00 Test Item Value Reference Range Interpretation Comments UA RBC (test code = 0-2 /HPF See_Comment [Automa abdelrahman message] The UA RBC) system which ge nerated this result tra nsmitted reference range : <=2. The reference range was not used to interpr et this result as gurpreet l/abnormal. [facility] AND [id number] 02:43:00 Test Item Value Reference Range Interpretation Comments UA Bacteria (test code = UA Occasional /HPF Bacteria) [facility] AND [id number] 02:43:00 Test Item Value Reference Range Interpretation Comments UA Mucus (test code = UA Mucus) Few /LPF [facility] AND [id number] 02:43:00 Test Item Value Reference Range Interpretation Comments UA Glucose (test code Negative (04/06/16 8:43 = UA Glucose) PM) [facility] AND [id number] 02:43:00 Test Item Value Reference Range Interpretation Comments UA Protein (test code Negative (04/06/16 8:43 = UA Protein) PM) [facility] AND [id number] 02:43:00 Test Item Value Reference Range Interpretation Comments UA pH (test code = UA pH) 5.5 1 5.0-8.0 [facility] AND [id number] 02:43:00 Test Item Value Reference Range Interpretation Comments UA Spec Grav (test code = UA Spec 1.025 1 Grav) [facility] AND [id number] 02:43:00 Test Item Value Reference Range Interpretation Comments UA Ketones (test code = UA >=80 mg/dL Ketones) [facility] AND [id number] 02:43:00 Test Item Value Reference Range Interpretation Comments UA Nitrite (test code Negative (04/06/16 8:43 = UA Nitrite) PM) [facility] [id number] 02:43:00 Test Item Value Reference Range Interpretation Comments UA Urobilinogen (test code = UA 0.2 0.1-1.0 Urobilinogen) [facility] [id number] 02:43:00 Test Item Value Reference Range Interpretation Comments UA Blood (test code = Negative (04/06/16 8:43 UA Blood) PM) [facility] [id number] 02:43:00 Test Item Value Reference Range Interpretation Comments UA Bili (test code = Small *ABN*(04/06/16 UA Bili) 8:43 PM) [facility] [id number] 02:43:00 Test Item Value Reference Range Interpretation Comments UA Leuk Est (test code Trace *ABN*(04/06/16 = UA Leuk Est) 8:43 PM) [facility] [id number] 02:43:00 Test Item Value Reference Range Interpretation Comments UA Turbidity (test code = Clear (04/06/16 8:43 UA Turbidity) PM) [facility] [id number] 02:43:00 Test Item Value Reference Range Interpretation Comments UA Color (test code = Yellow *NA*(04/06/16 UA Color) 8:43 PM) [facility] [id number] 02:43:00 Test Item Value Reference Range Interpretation Comments UDS Note (test code = See Note *NA*(04/06/16 UDS Note) 8:43 PM) [facility] [id number] 02:43:00 Test Item Value Reference Range Interpretation Comments U Opiate Scr (test Negative *NA*(04/06/16 code = U Opiate Scr) 8:43 PM) [facility] [id number] 02:43:00 Test Item Value Reference Range Interpretation Comments U Benzodia Scr (test Negative *NA*(04/06/16 code = U Benzodia Scr) 8:43 PM) [facility] [id number] 02:43:00 Test Item Value Reference Range Interpretation Comments U Cocaine Scr (test Negative *NA*(04/06/16 code = U Cocaine Scr) 8:43 PM) [facility] [id number] 02:43:00 Test Item Value Reference Range Interpretation Comments U Phencyc Scr (test Negative *NA*(04/06/16 code = U Phencyc Scr) 8:43 PM) [facility] [id number] 02:43:00 Test Item Value Reference Range Interpretation Comments U Odalys Scr (test code Negative *NA*(04/06/16 = U Odalys Scr) 8:43 PM) [facility] [id number] 02:43:00 Test Item Value Reference Range Interpretation Comments U Cannab Scr (test Negative *NA*(04/06/16 code = U Cannab Scr) 8:43 PM) [facility] [id number] 02:43:00 Test Item Value Reference Range Interpretation Comments U Amph Scr (test code Negative *NA*(04/06/16 = U Amph Scr) 8:43 PM) [facility] [id number] 02:43:00 Test Item Value Reference Range Interpretation Comments UA WBC (test code = UA WBC) 3-5 /HPF [facility] [id number] 02:43:00 Test Item Value Reference Range Interpretation Comments UA Sq Epi (test code = UA Sq Epi) Rare /LPF [facility] [id number] 02:43:00 Test Item Value Reference Range Interpretation Comments UA RBC (test code = 0-2 /HPF See_Comment [Automa abdelrahman message] The UA RBC) system which ge nerated this result tra nsmitted reference range : <=2. The reference range was not used to interpr et this result as gurpreet l/abnormal. [facility] [id number] 02:43:00 Test Item Value Reference Range Interpretation Comments UA Bacteria (test code = UA Occasional /HPF Bacteria) [facility] [id number] 02:43:00 Test Item Value Reference Range Interpretation Comments UA Mucus (test code = UA Mucus) Few /LPF [facility] [id number] 02:43:00 Test Item Value Reference Range Interpretation Comments UA Glucose (test code Negative (04/06/16 8:43 = UA Glucose) PM) [facility] [id number] 02:43:00 Test Item Value Reference Range Interpretation Comments UA Protein (test code Negative (04/06/16 8:43 = UA Protein) PM) [facility] [id number] 02:43:00 Test Item Value Reference Range Interpretation Comments UA pH (test code = UA pH) 5.5 1 5.0-8.0 [facility] [id number] 02:43:00 Test Item Value Reference Range Interpretation Comments UA Spec Grav (test code = UA Spec 1.025 1 Grav) [facility] [id number] 02:43:00 Test Item Value Reference Range Interpretation Comments UA Ketones (test code = UA >=80 mg/dL Ketones) [facility] [id number] 02:43:00 Test Item Value Reference Range Interpretation Comments UA Nitrite (test code Negative (04/06/16 8:43 = UA Nitrite) PM) [facility] [id number] 02:43:00 Test Item Value Reference Range Interpretation Comments UA Urobilinogen (test code = UA 0.2 0.1-1.0 Urobilinogen) [facility] [id number] 02:43:00 Test Item Value Reference Range Interpretation Comments UA Blood (test code = Negative (04/06/16 8:43 UA Blood) PM) [facility] [id number] 02:43:00 Test Item Value Reference Range Interpretation Comments UA Bili (test code = Small *ABN*(04/06/16 UA Bili) 8:43 PM) [facility] [id number] 02:43:00 Test Item Value Reference Range Interpretation Comments UA Leuk Est (test code Trace *ABN*(04/06/16 = UA Leuk Est) 8:43 PM) [facility] [id number] 02:43:00 Test Item Value Reference Range Interpretation Comments UA Turbidity (test code = Clear (04/06/16 8:43 UA Turbidity) PM) [facility] [id number] 02:43:00 Test Item Value Reference Range Interpretation Comments UA Color (test code = Yellow *NA*(04/06/16 UA Color) 8:43 PM) [facility] [id number] 02:43:00 Test Item Value Reference Range Interpretation Comments UDS Note (test code = See Note *NA*(04/06/16 UDS Note) 8:43 PM) [facility] [id number] 02:43:00 Test Item Value Reference Range Interpretation Comments U Opiate Scr (test Negative *NA*(04/06/16 code = U Opiate Scr) 8:43 PM) [facility] [id number] 02:43:00 Test Item Value Reference Range Interpretation Comments U Benzodia Scr (test Negative *NA*(04/06/16 code = U Benzodia Scr) 8:43 PM) [facility] [id number] 02:43:00 Test Item Value Reference Range Interpretation Comments U Cocaine Scr (test Negative *NA*(04/06/16 code = U Cocaine Scr) 8:43 PM) [facility] [id number] 02:43:00 Test Item Value Reference Range Interpretation Comments U Phencyc Scr (test Negative *NA*(04/06/16 code = U Phencyc Scr) 8:43 PM) [facility] [id number] 02:43:00 Test Item Value Reference Range Interpretation Comments U Odalys Scr (test code Negative *NA*(04/06/16 = U Odalys Scr) 8:43 PM) [facility] [id number] 02:43:00 Test Item Value Reference Range Interpretation Comments U Cannab Scr (test Negative *NA*(04/06/16 code = U Cannab Scr) 8:43 PM) [facility] [id number] 02:43:00 Test Item Value Reference Range Interpretation Comments U Amph Scr (test code Negative *NA*(04/06/16 = U Amph Scr) 8:43 PM) [facility] [id number] 02:43:00 Test Item Value Reference Range Interpretation Comments UA WBC (test code = UA WBC) 3-5 /HPF [facility] [id number] 02:43:00 Test Item Value Reference Range Interpretation Comments UA Sq Epi (test code = UA Sq Epi) Rare /LPF [facility] [id number] 02:43:00 Test Item Value Reference Range Interpretation Comments UA RBC (test code = 0-2 /HPF See_Comment [Automa abdelrahman message] The UA RBC) system which ge nerated this result tra nsmitted reference range : <=2. The reference range was not used to interpr et this result as gurpreet l/abnormal. [facility] AND [id number] 02:43:00 Test Item Value Reference Range Interpretation Comments UA Bacteria (test code = UA Occasional /HPF Bacteria) [facility] AND [id number] 02:43:00 Test Item Value Reference Range Interpretation Comments UA Mucus (test code = UA Mucus) Few /LPF [facility] AND [id number] 02:43:00 Test Item Value Reference Range Interpretation Comments UA Glucose (test code Negative (04/06/16 8:43 = UA Glucose) PM) [facility] AND [id number] 02:43:00 Test Item Value Reference Range Interpretation Comments UA Protein (test code Negative (04/06/16 8:43 = UA Protein) PM) [facility] AND [id number] 02:43:00 Test Item Value Reference Range Interpretation Comments UA pH (test code = UA pH) 5.5 1 5.0-8.0 [facility] AND [id number] 02:43:00 Test Item Value Reference Range Interpretation Comments UA Spec Grav (test code = UA Spec 1.025 1 Grav) [facility] AND [id number] 02:43:00 Test Item Value Reference Range Interpretation Comments UA Ketones (test code = UA >=80 mg/dL Ketones) [facility] AND [id number] 02:43:00 Test Item Value Reference Range Interpretation Comments UA Nitrite (test code Negative (04/06/16 8:43 = UA Nitrite) PM) [facility] AND [id number] 02:43:00 Test Item Value Reference Range Interpretation Comments UA Urobilinogen (test code = UA 0.2 0.1-1.0 Urobilinogen) [facility] AND [id number] 02:43:00 Test Item Value Reference Range Interpretation Comments UA Blood (test code = Negative (04/06/16 8:43 UA Blood) PM) [facility] AND [id number] 02:43:00 Test Item Value Reference Range Interpretation Comments UA Bili (test code = Small *ABN*(04/06/16 UA Bili) 8:43 PM) [facility] [id number] 02:43:00 Test Item Value Reference Range Interpretation Comments UA Leuk Est (test code Trace *ABN*(04/06/16 = UA Leuk Est) 8:43 PM) [facility] [id number] 02:43:00 Test Item Value Reference Range Interpretation Comments UA Turbidity (test code = Clear (04/06/16 8:43 UA Turbidity) PM) [facility] [id number] 02:43:00 Test Item Value Reference Range Interpretation Comments UA Color (test code = Yellow *NA*(04/06/16 UA Color) 8:43 PM) [facility] [id number] 02:43:00 Test Item Value Reference Range Interpretation Comments UDS Note (test code = See Note *NA*(04/06/16 UDS Note) 8:43 PM) [facility] [id number] 02:43:00 Test Item Value Reference Range Interpretation Comments U Opiate Scr (test Negative *NA*(04/06/16 code = U Opiate Scr) 8:43 PM) [facility] [id number] 02:43:00 Test Item Value Reference Range Interpretation Comments U Benzodia Scr (test Negative *NA*(04/06/16 code = U Benzodia Scr) 8:43 PM) [facility] [id number] 02:43:00 Test Item Value Reference Range Interpretation Comments U Cocaine Scr (test Negative *NA*(04/06/16 code = U Cocaine Scr) 8:43 PM) [facility] [id number] 02:43:00 Test Item Value Reference Range Interpretation Comments U Phencyc Scr (test Negative *NA*(04/06/16 code = U Phencyc Scr) 8:43 PM) [facility] [id number] 02:43:00 Test Item Value Reference Range Interpretation Comments U Odalys Scr (test code Negative *NA*(04/06/16 = U Odalys Scr) 8:43 PM) [facility] [id number] 02:43:00 Test Item Value Reference Range Interpretation Comments U Cannab Scr (test Negative *NA*(04/06/16 code = U Cannab Scr) 8:43 PM) [facility] [id number] 02:43:00 Test Item Value Reference Range Interpretation Comments U Amph Scr (test code Negative *NA*(04/06/16 = U Amph Scr) 8:43 PM) [facility] [id number] 02:43:00 Test Item Value Reference Range Interpretation Comments UA WBC (test code = UA WBC) 3-5 /HPF [facility] [id number] 02:43:00 Test Item Value Reference Range Interpretation Comments UA Sq Epi (test code = UA Sq Epi) Rare /LPF [facility] [id number] 02:43:00 Test Item Value Reference Range Interpretation Comments UA RBC (test code = 0-2 /HPF See_Comment [Automa abdelrahman message] The UA RBC) system which ge nerated this result tra nsmitted reference range : <=2. The reference range was not used to interpr et this result as gurpreet l/abnormal. [facility] [id number] 02:43:00 Test Item Value Reference Range Interpretation Comments UA Bacteria (test code = UA Occasional /HPF Bacteria) [facility] [id number] 02:43:00 Test Item Value Reference Range Interpretation Comments UA Mucus (test code = UA Mucus) Few /LPF [facility] [id number] 02:43:00 Test Item Value Reference Range Interpretation Comments UA Glucose (test code Negative (04/06/16 8:43 = UA Glucose) PM) [facility] [id number] 02:43:00 Test Item Value Reference Range Interpretation Comments UA Protein (test code Negative (04/06/16 8:43 = UA Protein) PM) [facility] [id number] 02:43:00 Test Item Value Reference Range Interpretation Comments UA pH (test code = UA pH) 5.5 1 5.0-8.0 [facility] [id number] 02:43:00 Test Item Value Reference Range Interpretation Comments UA Spec Grav (test code = UA Spec 1.025 1 Grav) [facility] [id number] 02:43:00 Test Item Value Reference Range Interpretation Comments UA Ketones (test code = UA >=80 mg/dL Ketones) [facility] [id number] 02:43:00 Test Item Value Reference Range Interpretation Comments UA Nitrite (test code Negative (04/06/16 8:43 = [facility] Nitrite) PM) [facility] [id number] 02:43:00 Test Item Value Reference Range Interpretation Comments UA Urobilinogen (test code = UA 0.2 0.1-1.0 Urobilinogen) [facility] [id number] 02:43:00 Test Item Value Reference Range Interpretation Comments UA Blood (test code = Negative (04/06/16 8:43 UA Blood) PM) [facility] [id number] 02:43:00 Test Item Value Reference Range Interpretation Comments UA Bili (test code = Small *ABN*(04/06/16 UA Bili) 8:43 PM) [facility] [id number] 02:43:00 Test Item Value Reference Range Interpretation Comments UA Leuk Est (test code Trace *ABN*(04/06/16 = UA Leuk Est) 8:43 PM) [facility] [id number] 02:43:00 Test Item Value Reference Range Interpretation Comments UA Turbidity (test code = Clear (04/06/16 8:43 UA Turbidity) PM) [facility] [id number] 02:43:00 Test Item Value Reference Range Interpretation Comments UA Color (test code = Yellow *NA*(04/06/16 UA Color) 8:43 PM) [facility] [id number] 02:43:00 Test Item Value Reference Range Interpretation Comments UDS Note (test code = See Note *NA*(04/06/16 UDS Note) 8:43 PM) [facility] [id number] 02:43:00 Test Item Value Reference Range Interpretation Comments U Opiate Scr (test Negative *NA*(04/06/16 code = U Opiate Scr) 8:43 PM) [facility] [id number] 02:43:00 Test Item Value Reference Range Interpretation Comments U Benzodia Scr (test Negative *NA*(04/06/16 code = U Benzodia Scr) 8:43 PM) [facility] [id number] 02:43:00 Test Item Value Reference Range Interpretation Comments U Cocaine Scr (test Negative *NA*(04/06/16 code = U Cocaine Scr) 8:43 PM) [facility] [id number] 02:43:00 Test Item Value Reference Range Interpretation Comments U Phencyc Scr (test Negative *NA*(04/06/16 code = U Phencyc Scr) 8:43 PM) [facility] [id number] 02:43:00 Test Item Value Reference Range Interpretation Comments U Odalys Scr (test code Negative *NA*(04/06/16 = U Odalys Scr) 8:43 PM) [facility] [id number] 02:43:00 Test Item Value Reference Range Interpretation Comments U Cannab Scr (test Negative *NA*(04/06/16 code = U Cannab Scr) 8:43 PM) [facility] [id number] 02:43:00 Test Item Value Reference Range Interpretation Comments U Amph Scr (test code Negative *NA*(04/06/16 = U Amph Scr) 8:43 PM) [facility] [id number] 02:43:00 Test Item Value Reference Range Interpretation Comments UA WBC (test code = UA WBC) 3-5 /HPF [facility] [id number] 02:43:00 Test Item Value Reference Range Interpretation Comments UA Sq Epi (test code = UA Sq Epi) Rare /LPF [facility] [id number] 02:43:00 Test Item Value Reference Range Interpretation Comments UA RBC (test code = 0-2 /HPF See_Comment [Automa abdelrahman message] The UA RBC) system which ge nerated this result tra nsmitted reference range : <=2. The reference range was not used to interpr et this result as gurpreet l/abnormal. [facility] [id number] 02:43:00 Test Item Value Reference Range Interpretation Comments UA Bacteria (test code = UA Occasional /HPF Bacteria) [facility] [id number] 02:43:00 Test Item Value Reference Range Interpretation Comments UA Mucus (test code = UA Mucus) Few /LPF [facility] [id number] 02:43:00 Test Item Value Reference Range Interpretation Comments UA Glucose (test code Negative (04/06/16 8:43 = UA Glucose) PM) [facility] AND [id number] 02:43:00 Test Item Value Reference Range Interpretation Comments UA Protein (test code Negative (04/06/16 8:43 = UA Protein) PM) [facility] AND [id number] 02:43:00 Test Item Value Reference Range Interpretation Comments UA pH (test code = UA pH) 5.5 1 5.0-8.0 [facility] AND [id number] 02:43:00 Test Item Value Reference Range Interpretation Comments UA Spec Grav (test code = UA Spec 1.025 1 Grav) [facility] AND [id number] 02:43:00 Test Item Value Reference Range Interpretation Comments UA Ketones (test code = UA >=80 mg/dL Ketones) [facility] AND [id number] 02:43:00 Test Item Value Reference Range Interpretation Comments UA Nitrite (test code Negative (04/06/16 8:43 = UA Nitrite) PM) [facility] AND [id number] 02:43:00 Test Item Value Reference Range Interpretation Comments UA Urobilinogen (test code = UA 0.2 0.1-1.0 Urobilinogen) [facility] AND [id number] 02:43:00 Test Item Value Reference Range Interpretation Comments UA Blood (test code = Negative (04/06/16 8:43 UA Blood) PM) [facility] AND [id number] 02:43:00 Test Item Value Reference Range Interpretation Comments UA Bili (test code = Small *ABN*(04/06/16 UA Bili) 8:43 PM) [facility] AND [id number] 02:43:00 Test Item Value Reference Range Interpretation Comments UA Leuk Est (test code Trace *ABN*(04/06/16 = UA Leuk Est) 8:43 PM) [facility] AND [id number] 02:43:00 Test Item Value Reference Range Interpretation Comments UA Turbidity (test code = Clear (04/06/16 8:43 UA Turbidity) PM) [facility] AND [id number] 02:43:00 Test Item Value Reference Range Interpretation Comments UA Color (test code = Yellow *NA*(04/06/16 UA Color) 8:43 PM) [facility] [id number] 02:38:00 Test Item Value Reference Range Interpretation Comments Total CK (test code = Total CK) 598 12-191 [facility] [id number] 02:38:00 Test Item Value Reference Range Interpretation Comments eGFR (test code = eGFR) 121 [facility] [id number] 02:38:00 Test Item Value Reference Range Interpretation Comments Calcium Lvl (test code = Calcium Lvl) 9.2 8.5-10.5 [facility] CenterannFUNGO STUDIOS [id number] 02:38:00 Test Item Value Reference Range Interpretation Comments Total Protein (test code = Total 7.6 6.4-8.4 Protein) [facility] [id number] 02:38:00 Test Item Value Reference Range Interpretation Comments CO2 (test code = CO2) 22 24-32 [facility] [id number] 02:38:00 Test Item Value Reference Range Interpretation Comments AST (test code = AST) 43 See_Comment [Auto mated message] The system which ge nerated this result transmit abdelrahman reference range : <=37. The reference range was not used to interpr et this result as gurpreet l/abnormal. [facility] [id number] 02:38:00 Test Item Value Reference Range Interpretation Comments Albumin Lvl (test code = Albumin Lvl) 4.4 3.5-5.0 [facility] [id number] 02:38:00 Test Item Value Reference Range Interpretation Comments ALT (test code = ALT) 22 See_Comment [Auto mated message] The system which ge nerated this result transmit abdelrahman reference range : <=65. The reference range was not used to interpr et this result as gurpreet l/abnormal. [facility] [id number] 02:38:00 Test Item Value Reference Range Interpretation Comments Chloride Lvl (test code = Chloride Lvl) 101 95-109 [facility] [id number] 02:38:00 Test Item Value Reference Range Interpretation Comments Creatinine Lvl (test code = Creatinine 0.81 0.50-1.40 Lvl) [facility]2016-12-08 02:38:00 Test Item Value Reference Range Interpretation Comments Sodium Lvl (test code = Sodium Lvl) 136 135-145 [facility]2016-12-08 02:38:00 Test Item Value Reference Range Interpretation Comments Potassium Lvl (test code = Potassium 4.4 3.5-5.1 Lvl) [facility]2016-12-08 02:38:00 Test Item Value Reference Range Interpretation Comments Bili Total (test code = Bili Total) 0.9 0.2-1.3 [facility]2016-12-08 02:38:00 Test Item Value Reference Range Interpretation Comments Alk Phos (test code = Alk Phos) 34 39-136 [facility]2016-12-08 02:38:00 Test Item Value Reference Range Interpretation Comments Glucose Lvl (test code = Glucose Lvl) 63 70-99 [facility]2016-12-08 02:38:00 Test Item Value Reference Range Interpretation Comments BUN (test code = BUN) 14 7-22 [facility]2016-12-08 02:38:00 Test Item Value Reference Range Interpretation Comments AGAP (test code = AGAP) 17.4 10.0-20.0 [facility]2016-12-08 02:38:00 Test Item Value Reference Range Interpretation Comments B/C Ratio (test code = B/C Ratio) 17 6-25 [facility]2016-12-08 02:38:00 Test Item Value Reference Range Interpretation Comments Globulin (test code = Globulin) 3.2 2.7-4.2 [facility]2016-12-08 02:38:00 Test Item Value Reference Range Interpretation Comments A/G Ratio (test code = A/G Ratio) 1.4 0.7-1.6 [id number] 02:38:00 Test Item Value Reference Range Interpretation Comments Lymphocytes # (test code = Lymphocytes 1.7 1.0-5.5 #) [facility] [id number] 02:38:00 Test Item Value Reference Range Interpretation Comments Eosinophils (test code = 1.0 See_Comment [A utomated message] The Eosinophils) system which ge nerated this result tra nsmitted reference range : <=4.0. The reference r annemarie was not used to int erpret this result as normal/abnormal . [facility] [id number] 02:38:00 Test Item Value Reference Range Interpretation Comments Basophils (test code = 0.4 See_Comment [Aut omated message] The Basophils) system which ge nerated this result tra nsmitted reference range : <=1.0. The reference r annemarie was not used to int erpret this result as normal/abnormal . [facility] HospitalNthhppjFDVOWYERZP5207-15-08 02:38:00 Test Item Value Reference Range Interpretation Comments Segs-Bands # (test code = Segs-Bands #) 4.2 1.5-8.1 [facility] [id number] 02:38:00 Test Item Value Reference Range Interpretation Comments Monocytes (test code = Monocytes) 9.2 2.0-12.0 [facility] H[id number] 02:38:00 Test Item Value Reference Range Interpretation Comments Monocytes # (test code 0.6 See_Comment [Aut omated message] The = Monocytes #) system which generated this result tra nsmitted reference range : <=0.8. The reference r annemarie was not used to int erpret this result as normal/abnormal . [facility] Hos[id number] 02:38:00 Test Item Value Reference Range Interpretation Comments Eosinophils # (test code 0.1 See_Comment [A utomated message] The = Eosinophils #) system whic h generated this result tra nsmitted reference range : <=0.5. The reference r annemarie was not used to int erpret this result as normal/abnormal . [facility] HospitalBtdmgbcLVQHEQFZBF3985-34-97 02:38:00 Test Item Value Reference Range Interpretation Comments Lymphocytes (test code = Lymphocytes) 26.3 20.0-40.0 [facility] HospitalQdfzseoIALKDQZTWB2689-75-25 02:38:00 Test Item Value Reference Range Interpretation Comments Segs (test code = Segs) 63.1 45.0-75.0 [facility] HospitalXzlbognUAGMRWAXCU4637-96-24 02:38:00 Test Item Value Reference Range Interpretation Comments WBC (test code = WBC) 6.6 3.7-10.4 [facility] HospitalPninzoeOUYCKZBYQR8627-83-12 02:38:00 Test Item Value Reference Range Interpretation Comments Hct (test code = Hct) 42.9 42.0-54.0 [facility]RrgfxmjOQQWNBZRSZ6370-94-79 02:38:00 Test Item Value Reference Range Interpretation Comments RBC (test code = RBC) 4.86 4.70-6.10 [facility] RegionAwcdzhaVKHVDFHXKF4722-13-47 02:38:00 Test Item Value Reference Range Interpretation Comments Hgb (test code = Hgb) 14.4 14.0-18.0 [facility] HospitalDlradihCWWUIMHGYE4430-46-29 02:38:00 Test Item Value Reference Range Interpretation Comments MCV (test code = MCV) 88.3 80.0-94.0 [facility] HospitalJkysrwkBBEFXXQGLP9628-53-68 02:38:00 Test Item Value Reference Range Interpretation Comments MCH (test code = MCH) 29.6 pg 27.0-31.0 [facility] RegionEhrlrnjIODSCYYMBN4480-18-38 02:38:00 Test Item Value Reference Range Interpretation Comments MCHC (test code = MCHC) 33.6 32.0-36.0 [facility] HospitalNdkklioASGUFMLYCJ7307-94-11 02:38:00 Test Item Value Reference Range Interpretation Comments MPV (test code = MPV) 9.4 7.4-10.4 [facility] HospitalNrdmvziCQVFQGQRQB7125-21-54 02:38:00 Test Item Value Reference Range Interpretation Comments RDW (test code = RDW) 13.4 11.5-14.5 [facility] HospitalQsyqbhoBFJOPMHLHM3373-48-40 02:38:00 Test Item Value Reference Range Interpretation Comments Platelet (test code = Platelet) 145 133-450 [facility] CampusDnlhdphRZFOHUYWWS0766-22-25 02:38:00 Test Item Value Reference Range Interpretation Comments Salicylate Lvl (test no gt See_Comment [Autom ated message] The code = Salicylate Lvl) syste m which generated this result tra nsmitted reference range : <=30.0. The reference r annemarie was not used to int erpret this result as normal/abnormal . [facility] CampusDufllhkPIQDXGSZBT5067-63-26 02:38:00 Test Item Value Reference Range Interpretation Comments Acetaminoph Lvl (test code (04/06/16 8:38 PM) 10-20 = Acetaminoph Lvl) [facility] [id number] 02:38:00 Test Item Value Reference Range Interpretation Comments Influ B (test code = Negative (04/06/16 8:38 Influ B) PM) [facility] [id number] 02:38:00 Test Item Value Reference Range Interpretation Comments Influ A (test code = Negative (04/06/16 8:38 Influ A) PM) [facility] [id number] 02:38:00 Test Item Value Reference Range Interpretation Comments Total CK (test code = Total CK) 598 12-191 [facility] HospitalannCHEM [id number] 02:38:00 Test Item Value Reference Range Interpretation Comments eGFR (test code = eGFR) 121 [facility] [id number] 02:38:00 Test Item Value Reference Range Interpretation Comments Calcium Lvl (test code = Calcium Lvl) 9.2 8.5-10.5 [facility] [id number] 02:38:00 Test Item Value Reference Range Interpretation Comments Total Protein (test code = Total 7.6 6.4-8.4 Protein) [facility] [id number] 02:38:00 Test Item Value Reference Range Interpretation Comments CO2 (test code = CO2) 22 24-32 [facility] [id number] 02:38:00 Test Item Value Reference Range Interpretation Comments AST (test code = AST) 43 See_Comment [Auto mated message] The system which ge nerated this result transmit abdelrahman reference range : <=37. The reference range was not used to interpr et this result as gurpreet l/abnormal. [facility] [id number] 02:38:00 Test Item Value Reference Range Interpretation Comments Albumin Lvl (test code = Albumin Lvl) 4.4 3.5-5.0 [facility] [id number] 02:38:00 Test Item Value Reference Range Interpretation Comments ALT (test code = ALT) 22 See_Comment [Auto mated message] The system which ge nerated this result transmit abdelrahman reference range : <=65. The reference range was not used to interpr et this result as gurpreet l/abnormal. [facility] [id number] 02:38:00 Test Item Value Reference Range Interpretation Comments Chloride Lvl (test code = Chloride Lvl) 101 95-109 [facility]2016-12-08 02:38:00 Test Item Value Reference Range Interpretation Comments Creatinine Lvl (test code = Creatinine 0.81 0.50-1.40 Lvl) [facility]2016-12-08 02:38:00 Test Item Value Reference Range Interpretation Comments Sodium Lvl (test code = Sodium Lvl) 136 135-145 [facility]2016-12-08 02:38:00 Test Item Value Reference Range Interpretation Comments Potassium Lvl (test code = Potassium 4.4 3.5-5.1 Lvl) [facility]2016-12-08 02:38:00 Test Item Value Reference Range Interpretation Comments Bili Total (test code = Bili Total) 0.9 0.2-1.3 [facility]2016-12-08 02:38:00 Test Item Value Reference Range Interpretation Comments Alk Phos (test code = Alk Phos) 34 39-136 [facility]2016-12-08 02:38:00 Test Item Value Reference Range Interpretation Comments Glucose Lvl (test code = Glucose Lvl) 63 70-99 [facility]2016-12-08 02:38:00 Test Item Value Reference Range Interpretation Comments BUN (test code = BUN) 14 7-22 [facility]2016-12-08 02:38:00 Test Item Value Reference Range Interpretation Comments AGAP (test code = AGAP) 17.4 10.0-20.0 [facility]2016-12-08 02:38:00 Test Item Value Reference Range Interpretation Comments B/C Ratio (test code = B/C Ratio) 17 6-25 [facility]2016-12-08 02:38:00 Test Item Value Reference Range Interpretation Comments Globulin (test code = Globulin) 3.2 2.7-4.2 [facility]2016-12-08 02:38:00 Test Item Value Reference Range Interpretation Comments A/G Ratio (test code = A/G Ratio) 1.4 0.7-1.6 [facility] HospitalAidpsxfBTJWFYWSGH0387-20-71 02:38:00 Test Item Value Reference Range Interpretation Comments Lymphocytes # (test code = Lymphocytes 1.7 1.0-5.5 #) [facility] HospitalHzfgpamATLTHTNIJV1756-28-14 02:38:00 Test Item Value Reference Range Interpretation Comments Eosinophils (test code = 1.0 See_Comment [A utomated message] The Eosinophils) system which ge nerated this result tra nsmitted reference range : <=4.0. The reference r annemarie was not used to int erpret this result as normal/abnormal . [facility] HospitalXlvjjkpDRITIKHZNE8303-23-98 02:38:00 Test Item Value Reference Range Interpretation Comments Basophils (test code = 0.4 See_Comment [Aut omated message] The Basophils) system which ge nerated this result tra nsmitted reference range : <=1.0. The reference r annemarie was not used to int erpret this result as normal/abnormal . [facility] HospitalOeynvjsLMOXDRMOXT7856-55-15 02:38:00 Test Item Value Reference Range Interpretation Comments Segs-Bands # (test code = Segs-Bands #) 4.2 1.5-8.1 [facility] HospitalXlrzaprRYRNPCFNRE4093-35-72 02:38:00 Test Item Value Reference Range Interpretation Comments Monocytes (test code = Monocytes) 9.2 2.0-12.0 [facility] HospitalNumtufwGCVCDDXEXI3381-07-46 02:38:00 Test Item Value Reference Range Interpretation Comments Monocytes # (test code 0.6 See_Comment [Aut omated message] The = Monocytes #) system which generated this result tra nsmitted reference range : <=0.8. The reference r annemarie was not used to int erpret this result as normal/abnormal . [facility] HospitalAorxbmjWHFZZXXAZS0247-27-44 02:38:00 Test Item Value Reference Range Interpretation Comments Eosinophils # (test code 0.1 See_Comment [A utomated message] The = Eosinophils #) system whic h generated this result tra nsmitted reference range : <=0.5. The reference r annemarie was not used to int erpret this result as normal/abnormal . [facility] HospitalKxmcoknXNZEQPITSJ5434-10-54 02:38:00 Test Item Value Reference Range Interpretation Comments Lymphocytes (test code = Lymphocytes) 26.3 20.0-40.0 [facility] HospitalOksimjsLQHEJKNSCG5991-41-77 02:38:00 Test Item Value Reference Range Interpretation Comments Segs (test code = Segs) 63.1 45.0-75.0 [facility] HospitalGnttkxkVCLVJGGPUR7805-36-72 02:38:00 Test Item Value Reference Range Interpretation Comments WBC (test code = WBC) 6.6 3.7-10.4 [facility] HospitalDxqpdceTWQEATQOWL8652-02-98 02:38:00 Test Item Value Reference Range Interpretation Comments Hct (test code = Hct) 42.9 42.0-54.0 [facility] HospitalVsbcncfSIYFQWYQRK7468-02-11 02:38:00 Test Item Value Reference Range Interpretation Comments RBC (test code = RBC) 4.86 4.70-6.10 [facility] HospitalUpkihbyWLSTCWQNLI8112-10-69 02:38:00 Test Item Value Reference Range Interpretation Comments Hgb (test code = Hgb) 14.4 14.0-18.0 [facility] HospitalEijsestLEGQFQMZUC8310-33-48 02:38:00 Test Item Value Reference Range Interpretation Comments MCV (test code = MCV) 88.3 80.0-94.0 [facility] HospitalMatgmeuTJHRECUXAG2705-04-27 02:38:00 Test Item Value Reference Range Interpretation Comments MCH (test code = MCH) 29.6 pg 27.0-31.0 [facility] HospitalAxpweckZNOINSJALJ5132-54-33 02:38:00 Test Item Value Reference Range Interpretation Comments MCHC (test code = MCHC) 33.6 32.0-36.0 [facility] HospitalKkuthybOFFDRONVQW8130-09-16 02:38:00 Test Item Value Reference Range Interpretation Comments MPV (test code = MPV) 9.4 7.4-10.4 [facility] HospitalCpcsvoePDATPGYMNL8628-62-90 02:38:00 Test Item Value Reference Range Interpretation Comments RDW (test code = RDW) 13.4 11.5-14.5 [facility] HospitalSqamwhsIDUABTMCFT9976-04-66 02:38:00 Test Item Value Reference Range Interpretation Comments Platelet (test code = Platelet) 145 133-450 [place] [id number] 02:38:00 Test Item Value Reference Range Interpretation Comments Salicylate Lvl (test no gt See_Comment [Autom ated message] The code = Salicylate Lvl) syste m which generated this result tra nsmitted reference range : <=30.0. The reference r annemarie was not used to int erpret this result as normal/abnormal . [place] [id number] 02:38:00 Test Item Value Reference Range Interpretation Comments Acetaminoph Lvl (test code (04/06/16 8:38 PM) 10-20 = Acetaminoph Lvl) [facility] [id number] 02:38:00 Test Item Value Reference Range Interpretation Comments Influ B (test code = Negative (04/06/16 8:38 Influ B) PM) [facility] [id number] 02:38:00 Test Item Value Reference Range Interpretation Comments Influ A (test code = Negative (04/06/16 8:38 Influ A) PM) [facility]AC [id number] 02:38:00 Test Item Value Reference Range Interpretation Comments Total CK (test code = Total CK) 598 12-191 [facility] HospitalSpendSmart Payments CompanyCHEM [id number] 02:38:00 Test Item Value Reference Range Interpretation Comments eGFR (test code = eGFR) 121 [facility] [id number] 02:38:00 Test Item Value Reference Range Interpretation Comments Calcium Lvl (test code = Calcium Lvl) 9.2 8.5-10.5 [facility] HospitalSpendSmart Payments CompanyCHEM [id number] 02:38:00 Test Item Value Reference Range Interpretation Comments Total Protein (test code = Total 7.6 6.4-8.4 Protein) [facility]SpendSmart Payments CompanyCHEM [id number] 02:38:00 Test Item Value Reference Range Interpretation Comments CO2 (test code = CO2) 22 24-32 [facility] HospitalSpendSmart Payments CompanyCHEM [id number] 02:38:00 Test Item Value Reference Range Interpretation Comments AST (test code = AST) 43 See_Comment [Auto mated message] The system which ge nerated this result transmit abdelrahman reference range : <=37. The reference range was not used to interpr et this result as gurpreet l/abnormal. [facility] [id number] 02:38:00 Test Item Value Reference Range Interpretation Comments Albumin Lvl (test code = Albumin Lvl) 4.4 3.5-5.0 [facility] [id number] 02:38:00 Test Item Value Reference Range Interpretation Comments ALT (test code = ALT) 22 See_Comment [Auto mated message] The system which ge nerated this result transmit abdelrahman reference range : <=65. The reference range was not used to interpr et this result as gurpreet l/abnormal. [facility]2016-12-08 02:38:00 Test Item Value Reference Range Interpretation Comments Chloride Lvl (test code = Chloride Lvl) 101 95-109 [facility]2016-12-08 02:38:00 Test Item Value Reference Range Interpretation Comments Creatinine Lvl (test code = Creatinine 0.81 0.50-1.40 Lvl) [facility]2016-12-08 02:38:00 Test Item Value Reference Range Interpretation Comments Sodium Lvl (test code = Sodium Lvl) 136 135-145 [facility]2016-12-08 02:38:00 Test Item Value Reference Range Interpretation Comments Potassium Lvl (test code = Potassium 4.4 3.5-5.1 Lvl) [facility]2016-12-08 02:38:00 Test Item Value Reference Range Interpretation Comments Bili Total (test code = Bili Total) 0.9 0.2-1.3 [facility]2016-12-08 02:38:00 Test Item Value Reference Range Interpretation Comments Alk Phos (test code = Alk Phos) 34 39-136 [facility]2016-12-08 02:38:00 Test Item Value Reference Range Interpretation Comments Glucose Lvl (test code = Glucose Lvl) 63 70-99 [facility]2016-12-08 02:38:00 Test Item Value Reference Range Interpretation Comments BUN (test code = BUN) 14 7-22 [facility]2016-12-08 02:38:00 Test Item Value Reference Range Interpretation Comments AGAP (test code = AGAP) 17.4 10.0-20.0 [facility]2016-12-08 02:38:00 Test Item Value Reference Range Interpretation Comments B/C Ratio (test code = B/C Ratio) 17 6-25 [facility]2016-12-08 02:38:00 Test Item Value Reference Range Interpretation Comments Globulin (test code = Globulin) 3.2 2.7-4.2 [facility]2016-12-08 02:38:00 Test Item Value Reference Range Interpretation Comments A/G Ratio (test code = A/G Ratio) 1.4 0.7-1.6 [place] [id number] 02:38:00 Test Item Value Reference Range Interpretation Comments Lymphocytes # (test code = Lymphocytes 1.7 1.0-5.5 #) [facility]WcqlymmVJFCEDGOZD9918-65-17 02:38:00 Test Item Value Reference Range Interpretation Comments Eosinophils (test code = 1.0 See_Comment [A utomated message] The Eosinophils) system which ge nerated this result tra nsmitted reference range : <=4.0. The reference r annemarie was not used to int erpret this result as normal/abnormal . [facility] HospitalYlnfxhdYYMFPJWNLZ3994-66-64 02:38:00 Test Item Value Reference Range Interpretation Comments Basophils (test code = 0.4 See_Comment [Aut omated message] The Basophils) system which ge nerated this result tra nsmitted reference range : <=1.0. The reference r annemarie was not used to int erpret this result as normal/abnormal . [facility] HospitalAifvhtqORTDCUVWYZ4248-59-68 02:38:00 Test Item Value Reference Range Interpretation Comments Segs-Bands # (test code = Segs-Bands #) 4.2 1.5-8.1 [facility] HospitalUfzgiwzITQWYWDHYB2711-36-48 02:38:00 Test Item Value Reference Range Interpretation Comments Monocytes (test code = Monocytes) 9.2 2.0-12.0 [facility] HospitalPbfqrhiRTHPTGJUTX2866-60-81 02:38:00 Test Item Value Reference Range Interpretation Comments Monocytes # (test code 0.6 See_Comment [Aut omated message] The = Monocytes #) system which generated this result tra nsmitted reference range : <=0.8. The reference r annemarie was not used to int erpret this result as normal/abnormal . [facility] HospitalPfkrzanHTWVPRWBOK2204-29-84 02:38:00 Test Item Value Reference Range Interpretation Comments Eosinophils # (test code 0.1 See_Comment [A utomated message] The = Eosinophils #) system whic h generated this result tra nsmitted reference range : <=0.5. The reference r annemarie was not used to int erpret this result as normal/abnormal . [facility] HospitalLxaxkhhHDLJDXRUOE0812-26-54 02:38:00 Test Item Value Reference Range Interpretation Comments Lymphocytes (test code = Lymphocytes) 26.3 20.0-40.0 [facility] HospitalCkeaxqiCYNHSGGCWV0156-92-61 02:38:00 Test Item Value Reference Range Interpretation Comments Segs (test code = Segs) 63.1 45.0-75.0 [facility] HospitalMokjuczYQYALNSJYR8584-08-82 02:38:00 Test Item Value Reference Range Interpretation Comments WBC (test code = WBC) 6.6 3.7-10.4 [facility] HospitalCqzogmmWSWEJBGSLA3486-10-08 02:38:00 Test Item Value Reference Range Interpretation Comments Hct (test code = Hct) 42.9 42.0-54.0 [facility] HospitalTledccqKNBVNRJPJT1206-30-58 02:38:00 Test Item Value Reference Range Interpretation Comments RBC (test code = RBC) 4.86 4.70-6.10 [facility] HospitalSetihgnOBXEKJQRRX7320-56-86 02:38:00 Test Item Value Reference Range Interpretation Comments Hgb (test code = Hgb) 14.4 14.0-18.0 [facility] HospitalPxrxhfuHYUUZDWBQJ0714-48-55 02:38:00 Test Item Value Reference Range Interpretation Comments MCV (test code = MCV) 88.3 80.0-94.0 [facility] HospitalXqobvviPNJRHZKLQD0052-19-39 02:38:00 Test Item Value Reference Range Interpretation Comments MCH (test code = MCH) 29.6 pg 27.0-31.0 [facility] HospitalAorazurXHQRCHVONN5537-26-40 02:38:00 Test Item Value Reference Range Interpretation Comments MCHC (test code = MCHC) 33.6 32.0-36.0 [facility] HospitalSefpggwCZCIVUTWUS6091-67-48 02:38:00 Test Item Value Reference Range Interpretation Comments MPV (test code = MPV) 9.4 7.4-10.4 [facility] HospitalBibilmaWHLOKMLENC9876-64-13 02:38:00 Test Item Value Reference Range Interpretation Comments RDW (test code = RDW) 13.4 11.5-14.5 [facility] HospitalVtkpxtjBDAGNPBVRI0833-38-88 02:38:00 Test Item Value Reference Range Interpretation Comments Platelet (test code = Platelet) 145 133-450 [facility]NultbdaZVTEVGWRFX6151-15-92 02:38:00 Test Item Value Reference Range Interpretation Comments Salicylate Lvl (test no gt See_Comment [Autom ated message] The code = Salicylate Lvl) systfrancisca m which generated this result tra nsmitted reference range : <=30.0. The reference r annemarie was not used to int erpret this result as normal/abnormal . [facility] HospitalRajrwarUSUVWYOYYJ0326-26-70 02:38:00 Test Item Value Reference Range Interpretation Comments Acetaminoph Lvl (test code (04/06/16 8:38 PM) 10-20 = Acetaminoph Lvl) [facility] - [id number] 02:38:00 Test Item Value Reference Range Interpretation Comments Influ B (test code = Negative (04/06/16 8:38 Influ B) PM) [facility] - BOPJEBLQ6044-43-40 02:38:00 Test Item Value Reference Range Interpretation Comments Influ A (test code = Negative (04/06/16 8:38 Influ A) PM) [facility]annCARDIAC TMZNTNN5933-47-53 02:38:00 Test Item Value Reference Range Interpretation Comments Total CK (test code = Total CK) 598 12-191 [facility] [id number] 02:38:00 Test Item Value Reference Range Interpretation Comments eGFR (test code = eGFR) 121 [facility] ZGKYK5811-73-22 02:38:00 Test Item Value Reference Range Interpretation Comments Calcium Lvl (test code = Calcium Lvl) 9.2 8.5-10.5 [facility] [id number] 02:38:00 Test Item Value Reference Range Interpretation Comments Total Protein (test code = Total 7.6 6.4-8.4 Protein) [facility] [id number] 02:38:00 Test Item Value Reference Range Interpretation Comments CO2 (test code = CO2) 22 24-32 [facility] [id number] 02:38:00 Test Item Value Reference Range Interpretation Comments AST (test code = AST) 43 See_Comment [Auto mated message] The system which ge nerated this result transmit abdelrahman reference range : <=37. The reference range was not used to interpr et this result as gurpreet l/abnormal. [facility] [id number] 02:38:00 Test Item Value Reference Range Interpretation Comments Albumin Lvl (test code = Albumin Lvl) 4.4 3.5-5.0 [facility] [id number] 02:38:00 Test Item Value Reference Range Interpretation Comments ALT (test code = ALT) 22 See_Comment [Auto mated message] The system which ge nerated this result transmit abdelrahman reference range : <=65. The reference range was not used to interpr et this result as gurpreet l/abnormal. [facility]2016-12-08 02:38:00 Test Item Value Reference Range Interpretation Comments Chloride Lvl (test code = Chloride Lvl) 101 95-109 [facility]2016-12-08 02:38:00 Test Item Value Reference Range Interpretation Comments Creatinine Lvl (test code = Creatinine 0.81 0.50-1.40 Lvl) [facility]2016-12-08 02:38:00 Test Item Value Reference Range Interpretation Comments Sodium Lvl (test code = Sodium Lvl) 136 135-145 [facility]2016-12-08 02:38:00 Test Item Value Reference Range Interpretation Comments Potassium Lvl (test code = Potassium 4.4 3.5-5.1 Lvl) [facility]2016-12-08 02:38:00 Test Item Value Reference Range Interpretation Comments Bili Total (test code = Bili Total) 0.9 0.2-1.3 [facility]2016-12-08 02:38:00 Test Item Value Reference Range Interpretation Comments Alk Phos (test code = Alk Phos) 34 39-136 [facility]2016-12-08 02:38:00 Test Item Value Reference Range Interpretation Comments Glucose Lvl (test code = Glucose Lvl) 63 70-99 [facility]2016-12-08 02:38:00 Test Item Value Reference Range Interpretation Comments BUN (test code = BUN) 14 7-22 [facility]2016-12-08 02:38:00 Test Item Value Reference Range Interpretation Comments AGAP (test code = AGAP) 17.4 10.0-20.0 [facility]2016-12-08 02:38:00 Test Item Value Reference Range Interpretation Comments B/C Ratio (test code = B/C Ratio) 17 6-25 [facility]2016-12-08 02:38:00 Test Item Value Reference Range Interpretation Comments Globulin (test code = Globulin) 3.2 2.7-4.2 [facility]2016-12-08 02:38:00 Test Item Value Reference Range Interpretation Comments A/G Ratio (test code = A/G Ratio) 1.4 0.7-1.6 [facility] HospitalPhonivaVATQERHHGV0303-59-66 02:38:00 Test Item Value Reference Range Interpretation Comments Lymphocytes # (test code = Lymphocytes 1.7 1.0-5.5 #) [facility] HospitalMlvutpcUFEWCFVIPR0903-42-61 02:38:00 Test Item Value Reference Range Interpretation Comments Eosinophils (test code = 1.0 See_Comment [A utomated message] The Eosinophils) system which ge nerated this result tra nsmitted reference range : <=4.0. The reference r annemarie was not used to int erpret this result as normal/abnormal . [facility] HospitalXbtvcggBSWODJGXGB3775-29-50 02:38:00 Test Item Value Reference Range Interpretation Comments Basophils (test code = 0.4 See_Comment [Aut omated message] The Basophils) system which ge nerated this result tra nsmitted reference range : <=1.0. The reference r annemarie was not used to int erpret this result as normal/abnormal . [facility] HospitalUfutjwjJZQXHIFCLE8609-60-14 02:38:00 Test Item Value Reference Range Interpretation Comments Segs-Bands # (test code = Segs-Bands #) 4.2 1.5-8.1 [facility] HospitalJqmczgfQJBCWDBFHC9396-30-45 02:38:00 Test Item Value Reference Range Interpretation Comments Monocytes (test code = Monocytes) 9.2 2.0-12.0 [facility] HospitalOaeyqoxSNTTJFYRIH4941-29-39 02:38:00 Test Item Value Reference Range Interpretation Comments Monocytes # (test code 0.6 See_Comment [Aut omated message] The = Monocytes #) system which generated this result tra nsmitted reference range : <=0.8. The reference r annemarie was not used to int erpret this result as normal/abnormal . [facility] HospitalAxxancrDWMPPKTAAY5378-61-68 02:38:00 Test Item Value Reference Range Interpretation Comments Eosinophils # (test code 0.1 See_Comment [A utomated message] The = Eosinophils #) system ic h generated this result tra nsmitted reference range : <=0.5. The reference r annemarie was not used to int erpret this result as normal/abnormal . [facility] HospitalZkvymmqMYTVEKCERB0161-06-73 02:38:00 Test Item Value Reference Range Interpretation Comments Lymphocytes (test code = Lymphocytes) 26.3 20.0-40.0 [facility] HospitalYpmbwnuKYHUFDAMTH8927-27-93 02:38:00 Test Item Value Reference Range Interpretation Comments Segs (test code = Segs) 63.1 45.0-75.0 [facility] HospitalLmtqchhSCXFOSWIXM8087-30-45 02:38:00 Test Item Value Reference Range Interpretation Comments WBC (test code = WBC) 6.6 3.7-10.4 [facility] HospitalBiuoftyADDIBNHOAB4974-60-00 02:38:00 Test Item Value Reference Range Interpretation Comments Hct (test code = Hct) 42.9 42.0-54.0 [facility] HospitalWligshzICYAKGLOZB3231-90-21 02:38:00 Test Item Value Reference Range Interpretation Comments RBC (test code = RBC) 4.86 4.70-6.10 [facility] HospitalSbzlmzvNAIYTUJUIZ1698-33-48 02:38:00 Test Item Value Reference Range Interpretation Comments Hgb (test code = Hgb) 14.4 14.0-18.0 [facility] HospitalTdvwdylFNPBXTKSMB1365-45-39 02:38:00 Test Item Value Reference Range Interpretation Comments MCV (test code = MCV) 88.3 80.0-94.0 [facility] HospitalKtvhwcwIDNGEHWBFW3982-13-42 02:38:00 Test Item Value Reference Range Interpretation Comments MCH (test code = MCH) 29.6 pg 27.0-31.0 [facility] HospitalDxuegmwCZPTQOMQRP7986-00-59 02:38:00 Test Item Value Reference Range Interpretation Comments MCHC (test code = MCHC) 33.6 32.0-36.0 [facility] HospitalMnkznkjBZLUZXNOAZ0534-85-42 02:38:00 Test Item Value Reference Range Interpretation Comments MPV (test code = MPV) 9.4 7.4-10.4 [facility] HospitalFlqrvybIZWTKSPFLC3039-99-27 02:38:00 Test Item Value Reference Range Interpretation Comments RDW (test code = RDW) 13.4 11.5-14.5 [facility] HospitalShfjksnEUNHSTCMHZ1688-16-42 02:38:00 Test Item Value Reference Range Interpretation Comments Platelet (test code = Platelet) 145 133-450 [facility]ZujtyrjCRSCEWJDLB3502-06-79 02:38:00 Test Item Value Reference Range Interpretation Comments Salicylate Lvl (test no gt See_Comment [Autom ated message] The code = Salicylate Lvl) syste m which generated this result tra nsmitted reference range : <=30.0. The reference r annemarie was not used to int erpret this result as normal/abnormal . [facility] HospitalTphstfmBJYDFODQFH6809-78-99 02:38:00 Test Item Value Reference Range Interpretation Comments Acetaminoph Lvl (test code (04/06/16 8:38 PM) 10-20 = Acetaminoph Lvl) [facility] [id number] 02:38:00 Test Item Value Reference Range Interpretation Comments Influ B (test code = Negative (04/06/16 8:38 Influ B) PM) [facility] AXSPNJRF9600-46-28 02:38:00 Test Item Value Reference Range Interpretation Comments Influ A (test code = Negative (04/06/16 8:38 Influ A) PM) [facility]annCARDIAC [id number] 02:38:00 Test Item Value Reference Range Interpretation Comments Total CK (test code = Total CK) 598 12-191 [facility] UrbsterCHEM XRIOP5538-77-92 02:38:00 Test Item Value Reference Range Interpretation Comments eGFR (test code = eGFR) 121 [facility] [id number] 02:38:00 Test Item Value Reference Range Interpretation Comments Calcium Lvl (test code = Calcium Lvl) 9.2 8.5-10.5 [facility]rb[facility]CHE[facility] KQPIO7543-49-59 02:38:00 Test Item Value Reference Range Interpretation Comments Total Protein (test code = Total 7.6 6.4-8.4 Protein) [facility] [id number] 02:38:00 Test Item Value Reference Range Interpretation Comments CO2 (test code = CO2) 22 24-32 [facility] [id number] 02:38:00 Test Item Value Reference Range Interpretation Comments AST (test code = AST) 43 See_Comment [Auto mated message] The system which ge nerated this result transmit abdelrahman reference range : <=37. The reference range was not used to interpr et this result as gurpreet l/abnormal. [facility] [id number] 02:38:00 Test Item Value Reference Range Interpretation Comments Albumin Lvl (test code = Albumin Lvl) 4.4 3.5-5.0 [facility]2016-12-08 02:38:00 Test Item Value Reference Range Interpretation Comments ALT (test code = ALT) 22 See_Comment [Auto mated message] The system which ge nerated this result transmit abdelrahman reference range : <=65. The reference range was not used to interpr et this result as gurpreet l/abnormal. [facility]2016-12-08 02:38:00 Test Item Value Reference Range Interpretation Comments Chloride Lvl (test code = Chloride Lvl) 101 95-109 [facility]2016-12-08 02:38:00 Test Item Value Reference Range Interpretation Comments Creatinine Lvl (test code = Creatinine 0.81 0.50-1.40 Lvl) [facility]2016-12-08 02:38:00 Test Item Value Reference Range Interpretation Comments Sodium Lvl (test code = Sodium Lvl) 136 135-145 [facility]2016-12-08 02:38:00 Test Item Value Reference Range Interpretation Comments Potassium Lvl (test code = Potassium 4.4 3.5-5.1 Lvl) [facility]2016-12-08 02:38:00 Test Item Value Reference Range Interpretation Comments Bili Total (test code = Bili Total) 0.9 0.2-1.3 [facility]2016-12-08 02:38:00 Test Item Value Reference Range Interpretation Comments Alk Phos (test code = Alk Phos) 34 39-136 [facility]2016-12-08 02:38:00 Test Item Value Reference Range Interpretation Comments Glucose Lvl (test code = Glucose Lvl) 63 70-99 [facility]2016-12-08 02:38:00 Test Item Value Reference Range Interpretation Comments BUN (test code = BUN) 14 7-22 [facility]2016-12-08 02:38:00 Test Item Value Reference Range Interpretation Comments AGAP (test code = AGAP) 17.4 10.0-20.0 [facility]2016-12-08 02:38:00 Test Item Value Reference Range Interpretation Comments B/C Ratio (test code = B/C Ratio) 17 6-25 [facility]2016-12-08 02:38:00 Test Item Value Reference Range Interpretation Comments Globulin (test code = Globulin) 3.2 2.7-4.2 [facility]2016-12-08 02:38:00 Test Item Value Reference Range Interpretation Comments A/G Ratio (test code = A/G Ratio) 1.4 0.7-1.6 [facility] HospitalHalrbelGQBNHMLWOS4422-56-40 02:38:00 Test Item Value Reference Range Interpretation Comments Lymphocytes # (test code = Lymphocytes 1.7 1.0-5.5 #) [facility] HospitalJoxijlqDKPAOUIZIS4763-02-87 02:38:00 Test Item Value Reference Range Interpretation Comments Eosinophils (test code = 1.0 See_Comment [A utomated message] The Eosinophils) system which ge nerated this result tra nsmitted reference range : <=4.0. The reference r annemarie was not used to int erpret this result as normal/abnormal . [facility] HospitalTdxiwsoYZUISTYMLW3164-50-25 02:38:00 Test Item Value Reference Range Interpretation Comments Basophils (test code = 0.4 See_Comment [Aut omated message] The Basophils) system which ge nerated this result tra nsmitted reference range : <=1.0. The reference r annemarie was not used to int erpret this result as normal/abnormal . [facility] HospitalPvozvvbHWRQGEVMOD6219-53-18 02:38:00 Test Item Value Reference Range Interpretation Comments Segs-Bands # (test code = Segs-Bands #) 4.2 1.5-8.1 [facility] HospitalMslrvfyEFCPOQNZZL6449-18-49 02:38:00 Test Item Value Reference Range Interpretation Comments Monocytes (test code = Monocytes) 9.2 2.0-12.0 [facility] HospitalOttvlxeXFIABYJAUP8894-00-58 02:38:00 Test Item Value Reference Range Interpretation Comments Monocytes # (test code 0.6 See_Comment [Aut omated message] The = Monocytes #) system which generated this result tra nsmitted reference range : <=0.8. The reference r annemarie was not used to int erpret this result as normal/abnormal . [facility] HospitalDwgmdbaGEMWBWRPIT0418-58-92 02:38:00 Test Item Value Reference Range Interpretation Comments Eosinophils # (test code 0.1 See_Comment [A utomated message] The = Eosinophils #) system whic h generated this result tra nsmitted reference range : <=0.5. The reference r annemarie was not used to int erpret this result as normal/abnormal . [facility] HospitalZvmhyadRJILPVALDQ0356-09-49 02:38:00 Test Item Value Reference Range Interpretation Comments Lymphocytes (test code = Lymphocytes) 26.3 20.0-40.0 [facility] HospitalSqrftnkJCYGUTHBGE1992-97-17 02:38:00 Test Item Value Reference Range Interpretation Comments Segs (test code = Segs) 63.1 45.0-75.0 [facility] HospitalIpmygreBCZMHRDFYO2228-43-45 02:38:00 Test Item Value Reference Range Interpretation Comments WBC (test code = WBC) 6.6 3.7-10.4 [facility] HospitalXotpisoBRMZNEXNRO0158-36-43 02:38:00 Test Item Value Reference Range Interpretation Comments Hct (test code = Hct) 42.9 42.0-54.0 [facility] HospitalStacenrGSQHVEWBXI5557-96-05 02:38:00 Test Item Value Reference Range Interpretation Comments RBC (test code = RBC) 4.86 4.70-6.10 [facility] HospitalDfoomntNEBGINYPRH7367-11-82 02:38:00 Test Item Value Reference Range Interpretation Comments Hgb (test code = Hgb) 14.4 14.0-18.0 [facility] HospitalJqcpklfJRNOISMMMA6301-47-08 02:38:00 Test Item Value Reference Range Interpretation Comments MCV (test code = MCV) 88.3 80.0-94.0 [facility] HospitalYhfgnieXIHHVRUUAS1612-79-79 02:38:00 Test Item Value Reference Range Interpretation Comments MCH (test code = MCH) 29.6 pg 27.0-31.0 [facility] HospitalYrwumovLPBHPRINFL4372-47-50 02:38:00 Test Item Value Reference Range Interpretation Comments MCHC (test code = MCHC) 33.6 32.0-36.0 [facility] HospitalJpbtidbHQUSEHEHYJ4032-22-28 02:38:00 Test Item Value Reference Range Interpretation Comments MPV (test code = MPV) 9.4 7.4-10.4 [facility] HospitalOmdbhfiKMZWVOQAHD7725-46-88 02:38:00 Test Item Value Reference Range Interpretation Comments RDW (test code = RDW) 13.4 11.5-14.5 [facility] GhclwlySWYCSXGUOT6286-46-48 02:38:00 Test Item Value Reference Range Interpretation Comments Platelet (test code = Platelet) 145 133-450 [facility] HospitalWwxlmseTLFGXWKISU5818-03-30 02:38:00 Test Item Value Reference Range Interpretation Comments Salicylate Lvl (test no gt See_Comment [Autom ated message] The code = Salicylate Lvl) syste m which generated this result tra nsmitted reference range : <=30.0. The reference r annemarie was not used to int erpret this result as normal/abnormal . [facility] HospitalKdniqyiQQRXZZZAWH7317-00-53 02:38:00 Test Item Value Reference Range Interpretation Comments Acetaminoph Lvl (test code (04/06/16 8:38 PM) 10-20 = Acetaminoph Lvl) [facility]annVIR[facility] - KQCPIETX8568-59-13 02:38:00 Test Item Value Reference Range Interpretation Comments Influ B (test code = Negative (04/06/16 8:38 Influ B) PM) [facility] XDVQTFYO5196-30-13 02:38:00 Test Item Value Reference Range Interpretation Comments Influ A (test code = Negative (04/06/16 8:38 Influ A) PM) [facility]annCARDIAC SLKZEAF0745-97-65 02:38:00 Test Item Value Reference Range Interpretation Comments Total CK (test code = Total CK) 598 12-191 [facility] UrbsterCHEM SHADF2897-31-90 02:38:00 Test Item Value Reference Range Interpretation Comments eGFR (test code = eGFR) 121 [facility] [id number] 02:38:00 Test Item Value Reference Range Interpretation Comments Calcium Lvl (test code = Calcium Lvl) 9.2 8.5-10.5 [facility] PeopleStringannCHEM TPCUF5889-05-00 02:38:00 Test Item Value Reference Range Interpretation Comments Total Protein (test code = Total 7.6 6.4-8.4 Protein) [facility] [id number] 02:38:00 Test Item Value Reference Range Interpretation Comments CO2 (test code = CO2) 22 24-32 [facility] HospitalYovigo [id number] 02:38:00 Test Item Value Reference Range Interpretation Comments AST (test code = AST) 43 See_Comment [Auto mated message] The system which ge nerated this result transmit abdelrahman reference range : <=37. The reference range was not used to interpr et this result as gurpreet l/abnormal. [facility]2016-12-08 02:38:00 Test Item Value Reference Range Interpretation Comments Albumin Lvl (test code = Albumin Lvl) 4.4 3.5-5.0 [facility]2016-12-08 02:38:00 Test Item Value Reference Range Interpretation Comments ALT (test code = ALT) 22 See_Comment [Auto mated message] The system which ge nerated this result transmit abdelrahman reference range : <=65. The reference range was not used to interpr et this result as gurpreet l/abnormal. [facility]2016-12-08 02:38:00 Test Item Value Reference Range Interpretation Comments Chloride Lvl (test code = Chloride Lvl) 101 95-109 [facility]2016-12-08 02:38:00 Test Item Value Reference Range Interpretation Comments Creatinine Lvl (test code = Creatinine 0.81 0.50-1.40 Lvl) [facility]2016-12-08 02:38:00 Test Item Value Reference Range Interpretation Comments Sodium Lvl (test code = Sodium Lvl) 136 135-145 [facility]2016-12-08 02:38:00 Test Item Value Reference Range Interpretation Comments Potassium Lvl (test code = Potassium 4.4 3.5-5.1 Lvl) [facility]2016-12-08 02:38:00 Test Item Value Reference Range Interpretation Comments Bili Total (test code = Bili Total) 0.9 0.2-1.3 [facility]2016-12-08 02:38:00 Test Item Value Reference Range Interpretation Comments Alk Phos (test code = Alk Phos) 34 39-136 [facility]2016-12-08 02:38:00 Test Item Value Reference Range Interpretation Comments Glucose Lvl (test code = Glucose Lvl) 63 70-99 [facility]2016-12-08 02:38:00 Test Item Value Reference Range Interpretation Comments BUN (test code = BUN) 14 7-22 [facility]2016-12-08 02:38:00 Test Item Value Reference Range Interpretation Comments AGAP (test code = AGAP) 17.4 10.0-20.0 [facility]2016-12-08 02:38:00 Test Item Value Reference Range Interpretation Comments B/C Ratio (test code = B/C Ratio) 17 6-25 [facility]2016-12-08 02:38:00 Test Item Value Reference Range Interpretation Comments Globulin (test code = Globulin) 3.2 2.7-4.2 [facility]2016-12-08 02:38:00 Test Item Value Reference Range Interpretation Comments A/G Ratio (test code = A/G Ratio) 1.4 0.7-1.6 [facility]DefqchcXGZUQGEMVK8164-12-75 02:38:00 Test Item Value Reference Range Interpretation Comments Lymphocytes # (test code = Lymphocytes 1.7 1.0-5.5 #) [facility] HospitalYgsinnuZPPRUFICGR3273-64-82 02:38:00 Test Item Value Reference Range Interpretation Comments Eosinophils (test code = 1.0 See_Comment [A utomated message] The Eosinophils) system which ge nerated this result tra nsmitted reference range : <=4.0. The reference r annemarie was not used to int erpret this result as normal/abnormal . [facility] HospitalFcllqstWJXKJQZHLX3844-45-45 02:38:00 Test Item Value Reference Range Interpretation Comments Basophils (test code = 0.4 See_Comment [Aut omated message] The Basophils) system which ge nerated this result tra nsmitted reference range : <=1.0. The reference r annemarie was not used to int erpret this result as normal/abnormal . [facility] HospitalGgaduchQHFVIKVFSY1408-61-39 02:38:00 Test Item Value Reference Range Interpretation Comments Segs-Bands # (test code = Segs-Bands #) 4.2 1.5-8.1 [facility] HospitalPkoyxobUFBBOICDRM1234-31-17 02:38:00 Test Item Value Reference Range Interpretation Comments Monocytes (test code = Monocytes) 9.2 2.0-12.0 [facility] HospitalBogyqsuTGZEXGTDQL1380-63-36 02:38:00 Test Item Value Reference Range Interpretation Comments Monocytes # (test code 0.6 See_Comment [Aut omated message] The = Monocytes #) system which generated this result tra nsmitted reference range : <=0.8. The reference r annemarie was not used to int erpret this result as normal/abnormal . [facility] HospitalOscasnwHEZNNRUOBD5848-31-88 02:38:00 Test Item Value Reference Range Interpretation Comments Eosinophils # (test code 0.1 See_Comment [A utomated message] The = Eosinophils #) system whic h generated this result tra nsmitted reference range : <=0.5. The reference r annemarie was not used to int erpret this result as normal/abnormal . [facility] HospitalSnevemxMWRGLTVXKG8074-77-96 02:38:00 Test Item Value Reference Range Interpretation Comments Lymphocytes (test code = Lymphocytes) 26.3 20.0-40.0 [facility] HospitalRrgkbebHBXVXMJQRB9939-30-22 02:38:00 Test Item Value Reference Range Interpretation Comments Segs (test code = Segs) 63.1 45.0-75.0 [facility] HospitalItbunjoKFEUIDTGFO8557-61-57 02:38:00 Test Item Value Reference Range Interpretation Comments WBC (test code = WBC) 6.6 3.7-10.4 [facility] HospitalPbhonasJXYTSKOEWS4878-23-81 02:38:00 Test Item Value Reference Range Interpretation Comments Hct (test code = Hct) 42.9 42.0-54.0 [facility] HospitalNnrjozwHLUGTHQEEV8469-45-17 02:38:00 Test Item Value Reference Range Interpretation Comments RBC (test code = RBC) 4.86 4.70-6.10 [facility] HospitalBrteharWJFQWTKBWW0126-88-74 02:38:00 Test Item Value Reference Range Interpretation Comments Hgb (test code = Hgb) 14.4 14.0-18.0 [facility] HospitalKyxayujPCYMCIJTYH6916-19-36 02:38:00 Test Item Value Reference Range Interpretation Comments MCV (test code = MCV) 88.3 80.0-94.0 [facility] HospitalThwuqknRGYMGAXVMV1104-95-62 02:38:00 Test Item Value Reference Range Interpretation Comments MCH (test code = MCH) 29.6 pg 27.0-31.0 [facility] HospitalEpvqwwzTMPJVXXLDO4238-60-90 02:38:00 Test Item Value Reference Range Interpretation Comments MCHC (test code = MCHC) 33.6 32.0-36.0 [facility] HospitalTinzxcnSCYWGSJCPH4607-74-60 02:38:00 Test Item Value Reference Range Interpretation Comments MPV (test code = MPV) 9.4 7.4-10.4 [facility]ZwjsbzeQCJBOYXGXP5843-26-18 02:38:00 Test Item Value Reference Range Interpretation Comments RDW (test code = RDW) 13.4 11.5-14.5 [facility] HospitalJwlhnouDPUGOINEPT1616-55-42 02:38:00 Test Item Value Reference Range Interpretation Comments Platelet (test code = Platelet) 145 133-450 [facility]GpgnbuvRXHYBDYRSD4441-71-22 02:38:00 Test Item Value Reference Range Interpretation Comments Salicylate Lvl (test no gt See_Comment [Autom ated message] The code = Salicylate Lvl) syste m which generated this result tra nsmitted reference range : <=30.0. The reference r annemarie was not used to int erpret this result as normal/abnormal . [facility] HospitalAndnvnwUOEOHTRMVN8514-69-32 02:38:00 Test Item Value Reference Range Interpretation Comments Acetaminoph Lvl (test code (04/06/16 8:38 PM) 10-20 = Acetaminoph Lvl) [facility]annVIRAL - [id number] 02:38:00 Test Item Value Reference Range Interpretation Comments Influ B (test code = Negative (04/06/16 8:38 Influ B) PM) [facility] [id number] 02:38:00 Test Item Value Reference Range Interpretation Comments Influ A (test code = Negative (04/06/16 8:38 Influ A) PM) [facility] HospitalannCARDIAC [id number] 02:38:00 Test Item Value Reference Range Interpretation Comments Total CK (test code = Total CK) 598 12-191 [facility]annCHEM [id number] 02:38:00 Test Item Value Reference Range Interpretation Comments eGFR (test code = eGFR) 121 [facility]annCHEM [id number] 02:38:00 Test Item Value Reference Range Interpretation Comments Calcium Lvl (test code = Calcium Lvl) 9.2 8.5-10.5 [facility]annCHEM [id number] 02:38:00 Test Item Value Reference Range Interpretation Comments Total Protein (test code = Total 7.6 6.4-8.4 Protein) [facility]annCHEM [id number] 02:38:00 Test Item Value Reference Range Interpretation Comments CO2 (test code = CO2) 22 24-32 [facility]2016-12-08 02:38:00 Test Item Value Reference Range Interpretation Comments AST (test code = AST) 43 See_Comment [Auto mated message] The system which ge nerated this result transmit abdelrahman reference range : <=37. The reference range was not used to interpr et this result as gurpreet l/abnormal. [facility]2016-12-08 02:38:00 Test Item Value Reference Range Interpretation Comments Albumin Lvl (test code = Albumin Lvl) 4.4 3.5-5.0 [facility]2016-12-08 02:38:00 Test Item Value Reference Range Interpretation Comments ALT (test code = ALT) 22 See_Comment [Auto mated message] The system which ge nerated this result transmit abdelrahman reference range : <=65. The reference range was not used to interpr et this result as gurpreet l/abnormal. [facility]2016-12-08 02:38:00 Test Item Value Reference Range Interpretation Comments Chloride Lvl (test code = Chloride Lvl) 101 95-109 [facility]2016-12-08 02:38:00 Test Item Value Reference Range Interpretation Comments Creatinine Lvl (test code = Creatinine 0.81 0.50-1.40 Lvl) [facility]2016-12-08 02:38:00 Test Item Value Reference Range Interpretation Comments Sodium Lvl (test code = Sodium Lvl) 136 135-145 [facility]2016-12-08 02:38:00 Test Item Value Reference Range Interpretation Comments Potassium Lvl (test code = Potassium 4.4 3.5-5.1 Lvl) [facility]2016-12-08 02:38:00 Test Item Value Reference Range Interpretation Comments Bili Total (test code = Bili Total) 0.9 0.2-1.3 [facility]2016-12-08 02:38:00 Test Item Value Reference Range Interpretation Comments Alk Phos (test code = Alk Phos) 34 39-136 [facility]2016-12-08 02:38:00 Test Item Value Reference Range Interpretation Comments Glucose Lvl (test code = Glucose Lvl) 63 70-99 [facility]2016-12-08 02:38:00 Test Item Value Reference Range Interpretation Comments BUN (test code = BUN) 14 7-22 [facility]2016-12-08 02:38:00 Test Item Value Reference Range Interpretation Comments AGAP (test code = AGAP) 17.4 10.0-20.0 [facility]2016-12-08 02:38:00 Test Item Value Reference Range Interpretation Comments B/C Ratio (test code = B/C Ratio) 17 6-25 [facility]2016-12-08 02:38:00 Test Item Value Reference Range Interpretation Comments Globulin (test code = Globulin) 3.2 2.7-4.2 [facility]2016-12-08 02:38:00 Test Item Value Reference Range Interpretation Comments A/G Ratio (test code = A/G Ratio) 1.4 0.7-1.6 [place] [id number] 02:38:00 Test Item Value Reference Range Interpretation Comments Lymphocytes # (test code = Lymphocytes 1.7 1.0-5.5 #) [facility] HospitalFcpplnsPFTNRAZKJS9661-32-10 02:38:00 Test Item Value Reference Range Interpretation Comments Eosinophils (test code = 1.0 See_Comment [A utomated message] The Eosinophils) system which ge nerated this result tra nsmitted reference range : <=4.0. The reference r annemarie was not used to int erpret this result as normal/abnormal . [facility] HospitalBpguinqSHZRBQKKBT5545-01-52 02:38:00 Test Item Value Reference Range Interpretation Comments Basophils (test code = 0.4 See_Comment [Aut omated message] The Basophils) system which ge nerated this result tra nsmitted reference range : <=1.0. The reference r annemarie was not used to int erpret this result as normal/abnormal . [facility] HospitalGxpknzmPYESWVQYOC0670-69-77 02:38:00 Test Item Value Reference Range Interpretation Comments Segs-Bands # (test code = Segs-Bands #) 4.2 1.5-8.1 [facility] HospitalQfqxohzQYQEXUDSAN0014-43-09 02:38:00 Test Item Value Reference Range Interpretation Comments Monocytes (test code = Monocytes) 9.2 2.0-12.0 [facility] HospitalFoxsivoCROVVMEDOA0778-69-48 02:38:00 Test Item Value Reference Range Interpretation Comments Monocytes # (test code 0.6 See_Comment [Aut omated message] The = Monocytes #) system which generated this result tra nsmitted reference range : <=0.8. The reference r annemarie was not used to int erpret this result as normal/abnormal . [facility] HospitalHirtjpjEFHAZSQKVZ2326-20-99 02:38:00 Test Item Value Reference Range Interpretation Comments Eosinophils # (test code 0.1 See_Comment [A utomated message] The = Eosinophils #) system whic h generated this result tra nsmitted reference range : <=0.5. The reference r annemarie was not used to int erpret this result as normal/abnormal . [facility] HospitalWknvwxmJJNLSHYJIZ4366-73-96 02:38:00 Test Item Value Reference Range Interpretation Comments Lymphocytes (test code = Lymphocytes) 26.3 20.0-40.0 [facility] HospitalXrjskriIKFNDSNUGM3173-56-43 02:38:00 Test Item Value Reference Range Interpretation Comments Segs (test code = Segs) 63.1 45.0-75.0 [facility] HospitalSnlbnhjWYSTBYFBUH5382-10-97 02:38:00 Test Item Value Reference Range Interpretation Comments WBC (test code = WBC) 6.6 3.7-10.4 [facility] HospitalMjhlcnuTXGYLLRCYU0068-77-84 02:38:00 Test Item Value Reference Range Interpretation Comments Hct (test code = Hct) 42.9 42.0-54.0 [facility] HospitalThrtqotBSDJULDVCR8565-20-09 02:38:00 Test Item Value Reference Range Interpretation Comments RBC (test code = RBC) 4.86 4.70-6.10 [facility] HospitalHafnhptFNXMJXSFWS8744-00-28 02:38:00 Test Item Value Reference Range Interpretation Comments Hgb (test code = Hgb) 14.4 14.0-18.0 [facility] HospitalXanhyadOJIWZFNSCG9114-48-08 02:38:00 Test Item Value Reference Range Interpretation Comments MCV (test code = MCV) 88.3 80.0-94.0 [facility] HospitalKvvdeslNGNDANOUIH6342-93-15 02:38:00 Test Item Value Reference Range Interpretation Comments MCH (test code = MCH) 29.6 pg 27.0-31.0 [facility] HospitalChgttusVDYSVFBZAR7775-23-86 02:38:00 Test Item Value Reference Range Interpretation Comments MCHC (test code = MCHC) 33.6 32.0-36.0 [facility] HospitalMkmpbgiNMDGBAVGYR3641-44-14 02:38:00 Test Item Value Reference Range Interpretation Comments MPV (test code = MPV) 9.4 7.4-10.4 [facility] HospitalNpzhllhDIFEVUDGED7980-53-07 02:38:00 Test Item Value Reference Range Interpretation Comments RDW (test code = RDW) 13.4 11.5-14.5 [facility] HospitalKscffglQXPFCZJFVR8259-63-85 02:38:00 Test Item Value Reference Range Interpretation Comments Platelet (test code = Platelet) 145 133-450 [facility] HospitalNjwxwhhUCSTBLWIWE6203-01-35 02:38:00 Test Item Value Reference Range Interpretation Comments Salicylate Lvl (test no gt See_Comment [Autom ated message] The code = Salicylate Lvl) syste m which generated this result tra nsmitted reference range : <=30.0. The reference r annemarie was not used to int erpret this result as normal/abnormal . [facility] HospitalWezyhxhUKYMBQQHEE6784-02-44 02:38:00 Test Item Value Reference Range Interpretation Comments Acetaminoph Lvl (test code (04/06/16 8:38 PM) 10-20 = Acetaminoph Lvl) [facility]annVIR[facility] - [id number] 02:38:00 Test Item Value Reference Range Interpretation Comments Influ B (test code = Negative (04/06/16 8:38 Influ B) PM) [facility] [id number] 02:38:00 Test Item Value Reference Range Interpretation Comments Influ A (test code = Negative (04/06/16 8:38 Influ A) PM) [facility]annCARDIAC [id number] 02:38:00 Test Item Value Reference Range Interpretation Comments Total CK (test code = Total CK) 598 12-191 [facility] WQQOI8969-98-61 02:38:00 Test Item Value Reference Range Interpretation Comments eGFR (test code = eGFR) 121 [facility]annCHEM [id number] 02:38:00 Test Item Value Reference Range Interpretation Comments Calcium Lvl (test code = Calcium Lvl) 9.2 8.5-10.5 [facility]annCHE[facility] FPDSJ6311-31-90 02:38:00 Test Item Value Reference Range Interpretation Comments Total Protein (test code = Total 7.6 6.4-8.4 Protein) [facility]2016-12-08 02:38:00 Test Item Value Reference Range Interpretation Comments CO2 (test code = CO2) 22 24-32 [facility]2016-12-08 02:38:00 Test Item Value Reference Range Interpretation Comments AST (test code = AST) 43 See_Comment [Auto mated message] The system which ge nerated this result transmit abdelrahman reference range : <=37. The reference range was not used to interpr et this result as gurpreet l/abnormal. [facility]2016-12-08 02:38:00 Test Item Value Reference Range Interpretation Comments Albumin Lvl (test code = Albumin Lvl) 4.4 3.5-5.0 [facility]2016-12-08 02:38:00 Test Item Value Reference Range Interpretation Comments ALT (test code = ALT) 22 See_Comment [Auto mated message] The system which ge nerated this result transmit abdelrahman reference range : <=65. The reference range was not used to interpr et this result as gurpreet l/abnormal. [facility]2016-12-08 02:38:00 Test Item Value Reference Range Interpretation Comments Chloride Lvl (test code = Chloride Lvl) 101 95-109 [facility]2016-12-08 02:38:00 Test Item Value Reference Range Interpretation Comments Creatinine Lvl (test code = Creatinine 0.81 0.50-1.40 Lvl) [facility]2016-12-08 02:38:00 Test Item Value Reference Range Interpretation Comments Sodium Lvl (test code = Sodium Lvl) 136 135-145 [facility]2016-12-08 02:38:00 Test Item Value Reference Range Interpretation Comments Potassium Lvl (test code = Potassium 4.4 3.5-5.1 Lvl) [facility]2016-12-08 02:38:00 Test Item Value Reference Range Interpretation Comments Bili Total (test code = Bili Total) 0.9 0.2-1.3 [facility]2016-12-08 02:38:00 Test Item Value Reference Range Interpretation Comments Alk Phos (test code = Alk Phos) 34 39-136 [facility]2016-12-08 02:38:00 Test Item Value Reference Range Interpretation Comments Glucose Lvl (test code = Glucose Lvl) 63 70-99 [facility]2016-12-08 02:38:00 Test Item Value Reference Range Interpretation Comments BUN (test code = BUN) 14 7-22 [place] [id number] 02:38:00 Test Item Value Reference Range Interpretation Comments AGAP (test code = AGAP) 17.4 10.0-20.0 [place] [id number] 02:38:00 Test Item Value Reference Range Interpretation Comments B/C Ratio (test code = B/C Ratio) 17 6-25 [place] 995746-12-08 02:38:00 Test Item Value Reference Range Interpretation Comments Globulin (test code = Globulin) 3.2 2.7-4.2 [place] 995746-12-08 02:38:00 Test Item Value Reference Range Interpretation Comments A/G Ratio (test code = A/G Ratio) 1.4 0.7-1.6 [place] 786996-12-08 02:38:00 Test Item Value Reference Range Interpretation Comments Lymphocytes # (test code = Lymphocytes 1.7 1.0-5.5 #) [facility] HospitalZzczwgyBGVEJJWZNC5636-22-95 02:38:00 Test Item Value Reference Range Interpretation Comments Eosinophils (test code = 1.0 See_Comment [A utomated message] The Eosinophils) system which ge nerated this result tra nsmitted reference range : <=4.0. The reference r annemarie was not used to int erpret this result as normal/abnormal . [facility] HospitalNjwsjdwMSZHYHCCXF0580-18-64 02:38:00 Test Item Value Reference Range Interpretation Comments Basophils (test code = 0.4 See_Comment [Aut omated message] The Basophils) system which ge nerated this result tra nsmitted reference range : <=1.0. The reference r annemarie was not used to int erpret this result as normal/abnormal . [place] 786996-12-08 02:38:00 Test Item Value Reference Range Interpretation Comments Segs-Bands # (test code = Segs-Bands #) 4.2 1.5-8.1 [facility] HospitalUgiodkmIDVOIJULXD0050-39-06 02:38:00 Test Item Value Reference Range Interpretation Comments Monocytes (test code = Monocytes) 9.2 2.0-12.0 [facility] HospitalCoznnsvQLFMDACMWR0817-15-09 02:38:00 Test Item Value Reference Range Interpretation Comments Monocytes # (test code 0.6 See_Comment [Aut omated message] The = Monocytes #) system which generated this result tra nsmitted reference range : <=0.8. The reference r annemarie was not used to int erpret this result as normal/abnormal . [facility] HospitalJkvtzcaTWFCKQCJJA2841-95-15 02:38:00 Test Item Value Reference Range Interpretation Comments Eosinophils # (test code 0.1 See_Comment [A utomated message] The = Eosinophils #) system whic h generated this result tra nsmitted reference range : <=0.5. The reference r annemarie was not used to int erpret this result as normal/abnormal . [facility] HospitalAwqwlhwQHOEQSBFRD2424-59-08 02:38:00 Test Item Value Reference Range Interpretation Comments Lymphocytes (test code = Lymphocytes) 26.3 20.0-40.0 [facility] HospitalLeovuzpPHEZLKLBZN9539-07-46 02:38:00 Test Item Value Reference Range Interpretation Comments Segs (test code = Segs) 63.1 45.0-75.0 [facility] HospitalYazzongVTBERSLIUY5196-44-45 02:38:00 Test Item Value Reference Range Interpretation Comments WBC (test code = WBC) 6.6 3.7-10.4 [facility] HospitalLzistnyYGDVSQLFKU0296-95-31 02:38:00 Test Item Value Reference Range Interpretation Comments Hct (test code = Hct) 42.9 42.0-54.0 [facility] HospitalTnntqjuCWFEEWMEBL3600-92-92 02:38:00 Test Item Value Reference Range Interpretation Comments RBC (test code = RBC) 4.86 4.70-6.10 [facility] HospitalOnrvxmmZTIWGIAUGF2424-05-77 02:38:00 Test Item Value Reference Range Interpretation Comments Hgb (test code = Hgb) 14.4 14.0-18.0 [facility] HospitalXqcfxuzKODCSROKSK1778-07-24 02:38:00 Test Item Value Reference Range Interpretation Comments MCV (test code = MCV) 88.3 80.0-94.0 [facility] HospitalRapeuhjEBCPHWPEDH7977-56-62 02:38:00 Test Item Value Reference Range Interpretation Comments MCH (test code = MCH) 29.6 pg 27.0-31.0 [facility]agsiOUFCDXTTWY5009-13-80 02:38:00 Test Item Value Reference Range Interpretation Comments MCHC (test code = MCHC) 33.6 32.0-36.0 [facility] RegionQvblmjnSSPUELPQDQ1073-02-35 02:38:00 Test Item Value Reference Range Interpretation Comments MPV (test code = MPV) 9.4 7.4-10.4 [facility] RegionFzfnmioPFTBGQSMTV2704-27-55 02:38:00 Test Item Value Reference Range Interpretation Comments RDW (test code = RDW) 13.4 11.5-14.5 [facility] RegionMlqelkcOBQHACZXRZ6900-60-28 02:38:00 Test Item Value Reference Range Interpretation Comments Platelet (test code = Platelet) 145 133-450 [place] [id number] 02:38:00 Test Item Value Reference Range Interpretation Comments Salicylate Lvl (test no gt See_Comment [Autom ated message] The code = Salicylate Lvl) syste m which generated this result tra nsmitted reference range : <=30.0. The reference r annemarie was not used to int erpret this result as normal/abnormal . [place] [id number] 02:38:00 Test Item Value Reference Range Interpretation Comments Acetaminoph Lvl (test code (04/06/16 8:38 PM) 10-20 = Acetaminoph Lvl) [facility] [id number] 02:38:00 Test Item Value Reference Range Interpretation Comments Influ B (test code = Negative (04/06/16 8:38 Influ B) PM) [facility] [id number] 02:38:00 Test Item Value Reference Range Interpretation Comments Influ A (test code = Negative (04/06/16 8:38 Influ A) PM) [facility]UppxomwYOXFDCOVZ3834-67-24 06:42:00 Test Item Value Reference Range Interpretation Comments B/C Ratio (test code = B/C Ratio) 8 6-25 N [facility] CenterPqriukaSOHGORYHV9982-42-53 06:42:00 Test Item Value Reference Range Interpretation Comments Globulin (test code = Globulin) 2.5 2.0-4.0 [facility] CenterFsywmggCHZJJZBPQ3461-89-57 06:42:00 Test Item Value Reference Range Interpretation Comments AGAP (test code = AGAP) 16.9 10.0-20.0 [facility] CenterPrzkdafBKAQMODZX7642-09-19 06:42:00 Test Item Value Reference Range Interpretation Comments A/G Ratio (test code = A/G Ratio) 1.6 0.7-1.6 [facility] CenterXyircjiBFRQAGDBX5168-84-62 06:42:00 Test Item Value Reference Range Interpretation Comments eGFR (test code = eGFR) 105 [facility] CenterSfitdvlFVDLXKEOP7016-41-17 06:42:00 Test Item Value Reference Range Interpretation Comments Glucose Lvl (test code = Glucose Lvl) 109 70-99 [facility] CenterUmhyykaVSTLXHMTE0276-59-36 06:42:00 Test Item Value Reference Range Interpretation Comments ALT (test code = ALT) 26 See_Comment N [Auto mated message] The system which ge nerated this result transmit abdelrahman reference range : <=65. The reference range was not used to interpr et this result as gurpreet l/abnormal. [facility] CenterEobcwnkNQIFLZDQN5123-70-24 06:42:00 Test Item Value Reference Range Interpretation Comments Albumin Lvl (test code = Albumin Lvl) 3.9 3.5-5.0 [facility] CenterBqipcyrZLGGCLINC8965-36-63 06:42:00 Test Item Value Reference Range Interpretation Comments Alk Phos (test code = Alk Phos) 47 39-136 [facility] CenterLstkrziSJUZVIILO7537-02-39 06:42:00 Test Item Value Reference Range Interpretation Comments Total Protein (test code = Total 6.4 6.4-8.4 N Protein) [facility] CenterGjevjffATMYQBDOZ7807-01-69 06:42:00 Test Item Value Reference Range Interpretation Comments AST (test code = AST) 31 See_Comment N [Auto mated message] The system which ge nerated this result transmit abdelrahman reference range : <=37. The reference range was not used to interpr et this result as gurpreet l/abnormal. [facility] CenterXejnirfJHXNEMTEX3739-59-51 06:42:00 Test Item Value Reference Range Interpretation Comments Calcium Lvl (test code = Calcium Lvl) 9.0 8.5-10.5 N [facility]WkmktiyJOYWCVTIY4308-21-27 06:42:00 Test Item Value Reference Range Interpretation Comments Bili Total (test code = Bili Total) 0.4 0.2-1.3 N [facility] CenterKosfrhnGSTMDUGFF2083-65-93 06:42:00 Test Item Value Reference Range Interpretation Comments Chloride Lvl (test code = Chloride Lvl) 104 95-109 N [facility] CenterCfjufveWHRBIEHYD3541-74-35 06:42:00 Test Item Value Reference Range Interpretation Comments CO2 (test code = CO2) 24 24-32 N [facility] CenterQvtsgpiBJLSTRUSJ0349-72-89 06:42:00 Test Item Value Reference Range Interpretation Comments Sodium Lvl (test code = Sodium Lvl) 141 135-145 N [facility] CenterAuqfrwaYELBESEZJ3823-53-37 06:42:00 Test Item Value Reference Range Interpretation Comments Potassium Lvl (test code = Potassium 3.9 3.5-5.1 N Lvl) [facility] CenterCnivddrJSXWTAGGL6922-74-33 06:42:00 Test Item Value Reference Range Interpretation Comments BUN (test code = BUN) 8 7-22 N [facility] CenterIbrthuyLPOVLRZBG9125-46-02 06:42:00 Test Item Value Reference Range Interpretation Comments Creatinine Lvl (test code = Creatinine 1.0 0.5-1.4 N Lvl) [facility]KyhculxKBIVQANKIS0832-80-44 06:42:00 Test Item Value Reference Range Interpretation Comments MCH (test code = MCH) 30.2 pg 27.0-31.0 N [facility] HospitalQnotcyrAWVCKUHFOF0119-90-42 06:42:00 Test Item Value Reference Range Interpretation Comments Platelet (test code = Platelet) 134 133-450 N [facility] HospitalUegkkypHTZJOGGQUG9980-99-80 06:42:00 Test Item Value Reference Range Interpretation Comments MPV (test code = MPV) 10.1 7.4-10.4 N [facility] HospitalXdwwtozJNSJOPTAYQ5064-24-03 06:42:00 Test Item Value Reference Range Interpretation Comments RDW (test code = RDW) 13.4 11.5-14.5 N [facility] HospitalFfgutynMFZFGOMUOS4238-17-97 06:42:00 Test Item Value Reference Range Interpretation Comments Hct (test code = Hct) 39.4 42.0-54.0 L [facility] HospitalZivotyfCLIBYSNWNI1636-84-56 06:42:00 Test Item Value Reference Range Interpretation Comments MCV (test code = MCV) 89.5 80.0-94.0 N [facility] HospitalNxcvzftEZSBLRAJVB5394-62-73 06:42:00 Test Item Value Reference Range Interpretation Comments Hgb (test code = Hgb) 13.3 14.0-18.0 L [facility] HospitalWblreqiASDZSWNVRH2208-24-69 06:42:00 Test Item Value Reference Range Interpretation Comments MCHC (test code = MCHC) 33.7 32.0-36.0 N [facility] HospitalAjpuhgdSLXKUNTWJM3718-66-49 06:42:00 Test Item Value Reference Range Interpretation Comments WBC (test code = WBC) 12.5 3.7-10.4 H [facility] HospitalFaarfjhLDVNALXHNP2020-24-85 06:42:00 Test Item Value Reference Range Interpretation Comments RBC (test code = RBC) 4.40 4.70-6.10 L [facility] HospitalFtegvjpRZWTJFFJSH3151-31-38 06:42:00 Test Item Value Reference Range Interpretation Comments Lymphocytes (test code = Lymphocytes) 9.4 20.0-40.0 L [facility] HospitalQyniyycBUZCOIKBZZ8369-73-91 06:42:00 Test Item Value Reference Range Interpretation Comments Monocytes (test code = Monocytes) 10.8 2.0-12.0 N [facility] HospitalTjrvlafFATNEKUAVV1992-67-21 06:42:00 Test Item Value Reference Range Interpretation Comments Segs (test code = Segs) 79.6 45.0-75.0 H [facility] HospitalUqtywtrXQQGMUVOKO0804-19-53 06:42:00 Test Item Value Reference Range Interpretation Comments Eosinophils (test code = 0.1 See_Comment N [A utomated message] The Eosinophils) system which ge nerated this result tra nsmitted reference range : <=4.0. The reference r annemarie was not used to int erpret this result as normal/abnormal . [facility] HospitalNnzmzfbYKJAZKVBFY9529-77-92 06:42:00 Test Item Value Reference Range Interpretation Comments Basophils (test code = 0.1 See_Comment N [Aut omated message] The Basophils) system which ge nerated this result tra nsmitted reference range : <=1.0. The reference r annemarie was not used to int erpret this result as normal/abnormal . [facility] HospitalKemwrtpTZMYLYSYLP2503-96-35 06:42:00 Test Item Value Reference Range Interpretation Comments Segs-Bands # (test code = Segs-Bands #) 9.9 1.5-8.1 H [facility] HospitalEdkhcxzJKGGRKNEUU5807-69-25 06:42:00 Test Item Value Reference Range Interpretation Comments Lymphocytes # (test code = Lymphocytes 1.2 1.0-5.5 N #) [facility] HospitalBxijwskUDNYRYRCAQ5806-10-70 06:42:00 Test Item Value Reference Range Interpretation Comments Monocytes # (test code 1.3 See_Comment H [Aut omated message] The = Monocytes #) system which generated this result tra nsmitted reference range : <=0.8. The reference r annemarie was not used to int erpret this result as normal/abnormal . [facility] CenterHqcwvebGKECWRMFK2607-12-94 06:42:00 Test Item Value Reference Range Interpretation Comments B/C Ratio (test code = B/C Ratio) 8 6-25 N [facility] CenterLhabfabLMJJUOFTN6629-54-78 06:42:00 Test Item Value Reference Range Interpretation Comments Globulin (test code = Globulin) 2.5 2.0-4.0 N [facility] CenterIkcmkqvNVFLFPDAO8556-88-62 06:42:00 Test Item Value Reference Range Interpretation Comments AGAP (test code = AGAP) 16.9 10.0-20.0 N [facility] CenterVyypoocEHKILOQGJ7171-85-63 06:42:00 Test Item Value Reference Range Interpretation Comments A/G Ratio (test code = A/G Ratio) 1.6 0.7-1.6 N [facility] CenterFhjcapoULWJSSNVM7882-83-73 06:42:00 Test Item Value Reference Range Interpretation Comments eGFR (test code = eGFR) 105 [facility] CenterIdmbnazGMFHMGOXL4782-13-36 06:42:00 Test Item Value Reference Range Interpretation Comments Glucose Lvl (test code = Glucose Lvl) 109 70-99 H [facility] CenterEphrqukWKVFSYBCG2051-75-81 06:42:00 Test Item Value Reference Range Interpretation Comments ALT (test code = ALT) 26 See_Comment N [Auto mated message] The system which ge nerated this result transmit abdelrahman reference range : <=65. The reference range was not used to interpr et this result as gurpreet l/abnormal. [facility] CenterVjzxsawLBUOARHFH8063-02-29 06:42:00 Test Item Value Reference Range Interpretation Comments Albumin Lvl (test code = Albumin Lvl) 3.9 3.5-5.0 N [facility] CenterRerxkwxBAEHOJEJH8319-10-77 06:42:00 Test Item Value Reference Range Interpretation Comments Alk Phos (test code = Alk Phos) 47 39-136 N [facility] CenterWklzvduZDKSBZXLQ0641-13-85 06:42:00 Test Item Value Reference Range Interpretation Comments Total Protein (test code = Total 6.4 6.4-8.4 N Protein) [facility] CenterPsisnelRNRUXCMCS2828-45-79 06:42:00 Test Item Value Reference Range Interpretation Comments AST (test code = AST) 31 See_Comment N [Auto mated message] The system which ge nerated this result transmit abdelrahman reference range : <=37. The reference range was not used to interpr et this result as gurpreet l/abnormal. [facility] CenterPqxttcbBGBBFWAVR4251-51-87 06:42:00 Test Item Value Reference Range Interpretation Comments Calcium Lvl (test code = Calcium Lvl) 9.0 8.5-10.5 N [facility] CenterVzcrfvwPMVJSCMDJ6139-57-48 06:42:00 Test Item Value Reference Range Interpretation Comments Bili Total (test code = Bili Total) 0.4 0.2-1.3 N [facility] CenterNazufxuCYPQRGBOV9334-36-43 06:42:00 Test Item Value Reference Range Interpretation Comments Chloride Lvl (test code = Chloride Lvl) 104 95-109 N [facility] CenterRrqjykzLBNOKUNGJ6834-31-34 06:42:00 Test Item Value Reference Range Interpretation Comments CO2 (test code = CO2) 24 24-32 N [facility] CenterIezkutyUMPQUICVG5737-34-78 06:42:00 Test Item Value Reference Range Interpretation Comments Sodium Lvl (test code = Sodium Lvl) 141 135-145 N [facility] CenterSrdimbhYWPDHCURK0950-67-49 06:42:00 Test Item Value Reference Range Interpretation Comments Potassium Lvl (test code = Potassium 3.9 3.5-5.1 N Lvl) [facility] CenterPijszsvCSBLXBIGI0097-60-76 06:42:00 Test Item Value Reference Range Interpretation Comments BUN (test code = BUN) 8 7-22 N [facility] CenterRzsbqrtEBAYZCPCA6117-28-81 06:42:00 Test Item Value Reference Range Interpretation Comments Creatinine Lvl (test code = Creatinine 1.0 0.5-1.4 N Lvl) [facility] HospitalOrgvnurTSOKOHABCP3724-28-69 06:42:00 Test Item Value Reference Range Interpretation Comments MCH (test code = MCH) 30.2 pg 27.0-31.0 N [facility] HospitalTuzftczTZFLLEDIYZ6926-42-68 06:42:00 Test Item Value Reference Range Interpretation Comments Platelet (test code = Platelet) 134 133-450 N [facility] HospitalBloqlqyTPRGTGFXMT2215-61-90 06:42:00 Test Item Value Reference Range Interpretation Comments MPV (test code = MPV) 10.1 7.4-10.4 N [facility] HospitalQlagxozAHHXHPKTBI7734-45-16 06:42:00 Test Item Value Reference Range Interpretation Comments RDW (test code = RDW) 13.4 11.5-14.5 N [facility] HospitalTgvgctzMKSCJCXTTD1054-19-49 06:42:00 Test Item Value Reference Range Interpretation Comments Hct (test code = Hct) 39.4 42.0-54.0 L [facility] HospitalEnlopcvDCVPPSXWDP3496-74-88 06:42:00 Test Item Value Reference Range Interpretation Comments MCV (test code = MCV) 89.5 80.0-94.0 N [facility] HospitalJeioeroOBSKQAIDVL2590-26-56 06:42:00 Test Item Value Reference Range Interpretation Comments Hgb (test code = Hgb) 13.3 14.0-18.0 L [facility] HospitalHbigceuHNCKEZDFHE9243-38-90 06:42:00 Test Item Value Reference Range Interpretation Comments MCHC (test code = MCHC) 33.7 32.0-36.0 N [facility] HospitalVopinbjIDFYJUEZJJ2533-58-37 06:42:00 Test Item Value Reference Range Interpretation Comments WBC (test code = WBC) 12.5 3.7-10.4 H [facility] HospitalThpmnukBKHKLBKMLJ6572-70-02 06:42:00 Test Item Value Reference Range Interpretation Comments RBC (test code = RBC) 4.40 4.70-6.10 L [facility] HospitalIlrmqogNAWIFDFCNB1135-70-84 06:42:00 Test Item Value Reference Range Interpretation Comments Lymphocytes (test code = Lymphocytes) 9.4 20.0-40.0 L [facility] HospitalUbqknvzWHKZAQYZDJ7439-34-44 06:42:00 Test Item Value Reference Range Interpretation Comments Monocytes (test code = Monocytes) 10.8 2.0-12.0 N [facility] HospitalChiiirtFMXRGEDVMU7331-96-44 06:42:00 Test Item Value Reference Range Interpretation Comments Segs (test code = Segs) 79.6 45.0-75.0 H [facility] HospitalJyjelhuQJWJSLRVKO1393-49-29 06:42:00 Test Item Value Reference Range Interpretation Comments Eosinophils (test code = 0.1 See_Comment N [A utomated message] The Eosinophils) system which ge nerated this result tra nsmitted reference range : <=4.0. The reference r annemarie was not used to int erpret this result as normal/abnormal . [facility] HospitalZeqxnokQFOZXRSUEG2022-56-67 06:42:00 Test Item Value Reference Range Interpretation Comments Basophils (test code = 0.1 See_Comment N [Aut omated message] The Basophils) system which ge nerated this result tra nsmitted reference range : <=1.0. The reference r annemarie was not used to int erpret this result as normal/abnormal . [facility] HospitalUapihknEXKIIWPZYZ2625-11-18 06:42:00 Test Item Value Reference Range Interpretation Comments Segs-Bands # (test code = Segs-Bands #) 9.9 1.5-8.1 H [facility] HospitalIfmxgceUDVEMWAPTD7005-70-12 06:42:00 Test Item Value Reference Range Interpretation Comments Lymphocytes # (test code = Lymphocytes 1.2 1.0-5.5 N #) [facility] HospitalOidjtjuDADWHOBVKX4755-22-95 06:42:00 Test Item Value Reference Range Interpretation Comments Monocytes # (test code 1.3 See_Comment H [Aut omated message] The = Monocytes #) system which generated this result tra nsmitted reference range : <=0.8. The reference r annemarie was not used to int erpret this result as normal/abnormal . [facility] CenterCzzimhvLVQTKGDOJ1208-52-71 06:42:00 Test Item Value Reference Range Interpretation Comments B/C Ratio (test code = B/C Ratio) 8 6-25 N [facility] CenterXgxadbeNDEQCKVQX0456-12-71 06:42:00 Test Item Value Reference Range Interpretation Comments Globulin (test code = Globulin) 2.5 2.0-4.0 N [facility] CenterKfmapeoCSIDQOVRY3812-92-63 06:42:00 Test Item Value Reference Range Interpretation Comments AGAP (test code = AGAP) 16.9 10.0-20.0 N [facility] CenterJuojmueOGTNSGNPZ0933-01-65 06:42:00 Test Item Value Reference Range Interpretation Comments A/G Ratio (test code = A/G Ratio) 1.6 0.7-1.6 N [facility] CenterXfbmjkyVETHUIVRO3193-85-34 06:42:00 Test Item Value Reference Range Interpretation Comments eGFR (test code = eGFR) 105 [facility] CenterIgmefcxMPJUYCOUU8779-21-90 06:42:00 Test Item Value Reference Range Interpretation Comments Glucose Lvl (test code = Glucose Lvl) 109 70-99 H [facility] CenterWbhlpoqQHCEOFAAK6573-98-67 06:42:00 Test Item Value Reference Range Interpretation Comments ALT (test code = ALT) 26 See_Comment N [Auto mated message] The system which ge nerated this result transmit abdelrahman reference range : <=65. The reference range was not used to interpr et this result as gurpreet l/abnormal. [facility] CenterSmvbuvdHFTRCNHVY3635-80-38 06:42:00 Test Item Value Reference Range Interpretation Comments Albumin Lvl (test code = Albumin Lvl) 3.9 3.5-5.0 N [facility] CenterKvrrkhwIRHCVEBEX6037-19-73 06:42:00 Test Item Value Reference Range Interpretation Comments Alk Phos (test code = Alk Phos) 47 39-136 N [facility] CenterLfqkjgySEEIMFJHH8282-76-62 06:42:00 Test Item Value Reference Range Interpretation Comments Total Protein (test code = Total 6.4 6.4-8.4 N Protein) [facility] CenterXeazsgkGPPAHVSHK3959-45-42 06:42:00 Test Item Value Reference Range Interpretation Comments AST (test code = AST) 31 See_Comment N [Auto mated message] The system which ge nerated this result transmit abdelrahman reference range : <=37. The reference range was not used to interpr et this result as gurpreet l/abnormal. [facility] CenterWtpqxzoNGKUMNDNM4726-07-32 06:42:00 Test Item Value Reference Range Interpretation Comments Calcium Lvl (test code = Calcium Lvl) 9.0 8.5-10.5 N [facility] CenterVxnmkntRUNSGNUKK9883-58-27 06:42:00 Test Item Value Reference Range Interpretation Comments Bili Total (test code = Bili Total) 0.4 0.2-1.3 N [facility] CenterTojpkwpEZSAMAPPQ3674-01-25 06:42:00 Test Item Value Reference Range Interpretation Comments Chloride Lvl (test code = Chloride Lvl) 104 95-109 N [facility] CenterDmueczqPDXIGWVCX0431-23-27 06:42:00 Test Item Value Reference Range Interpretation Comments CO2 (test code = CO2) 24 24-32 N [facility] CenterPpqdnyrECDKKUPSC0072-06-27 06:42:00 Test Item Value Reference Range Interpretation Comments Sodium Lvl (test code = Sodium Lvl) 141 135-145 N [facility] CenterZabhmlmZVVHQLNWB9789-56-50 06:42:00 Test Item Value Reference Range Interpretation Comments Potassium Lvl (test code = Potassium 3.9 3.5-5.1 N Lvl) [facility] CenterVxkobskKVNIXKTLN5205-69-92 06:42:00 Test Item Value Reference Range Interpretation Comments BUN (test code = BUN) 8 7-22 N [facility] CenterCvcrrkwPYQSVVXLI7196-11-54 06:42:00 Test Item Value Reference Range Interpretation Comments Creatinine Lvl (test code = Creatinine 1.0 0.5-1.4 N Lvl) [facility] HospitalHsikxjuRVTSBSTCKP6004-21-05 06:42:00 Test Item Value Reference Range Interpretation Comments MCH (test code = MCH) 30.2 pg 27.0-31.0 N [facility] HospitalYmuxgcrWBWMCKRQJG6444-26-15 06:42:00 Test Item Value Reference Range Interpretation Comments Platelet (test code = Platelet) 134 133-450 N [facility] HospitalDtpmbcbLIMZWIKPJG1979-85-37 06:42:00 Test Item Value Reference Range Interpretation Comments MPV (test code = MPV) 10.1 7.4-10.4 N [facility] HospitalWwhmsoiZKPVKAFLKB0308-79-87 06:42:00 Test Item Value Reference Range Interpretation Comments RDW (test code = RDW) 13.4 11.5-14.5 N [facility] HospitalZslbkhgYRLMDCFEOS8559-44-86 06:42:00 Test Item Value Reference Range Interpretation Comments Hct (test code = Hct) 39.4 42.0-54.0 L [facility] HospitalJqjojweDQTTUIOCVM0602-06-58 06:42:00 Test Item Value Reference Range Interpretation Comments MCV (test code = MCV) 89.5 80.0-94.0 N [facility] HospitalWjxpkhsUBCEEUCCXO1053-90-98 06:42:00 Test Item Value Reference Range Interpretation Comments Hgb (test code = Hgb) 13.3 14.0-18.0 L [facility] HospitalLgbslaaZLUAQACPQC3949-99-14 06:42:00 Test Item Value Reference Range Interpretation Comments MCHC (test code = MCHC) 33.7 32.0-36.0 N [facility] HospitalIjjfrqwLMJJDTQNBP6571-89-76 06:42:00 Test Item Value Reference Range Interpretation Comments WBC (test code = WBC) 12.5 3.7-10.4 H [facility] HospitalLfjznpmUPNNFWCZTM6070-38-47 06:42:00 Test Item Value Reference Range Interpretation Comments RBC (test code = RBC) 4.40 4.70-6.10 L [facility] HospitalBtejlrkPANXVGHPHS4988-64-57 06:42:00 Test Item Value Reference Range Interpretation Comments Lymphocytes (test code = Lymphocytes) 9.4 20.0-40.0 L [facility] HospitalAptalkjUICYSJRDVD7706-44-44 06:42:00 Test Item Value Reference Range Interpretation Comments Monocytes (test code = Monocytes) 10.8 2.0-12.0 N [facility] HospitalNyhshpgSFLDFWKPAI1000-79-22 06:42:00 Test Item Value Reference Range Interpretation Comments Segs (test code = Segs) 79.6 45.0-75.0 H [facility] HospitalRtugxqfZKCVJLJOEP7314-90-00 06:42:00 Test Item Value Reference Range Interpretation Comments Eosinophils (test code = 0.1 See_Comment N [A utomated message] The Eosinophils) system which ge nerated this result tra nsmitted reference range : <=4.0. The reference r annemarie was not used to int erpret this result as normal/abnormal . [facility] HospitalDomimadJDNAWLMWDD9601-48-76 06:42:00 Test Item Value Reference Range Interpretation Comments Basophils (test code = 0.1 See_Comment N [Aut omated message] The Basophils) system which ge nerated this result tra nsmitted reference range : <=1.0. The reference r annemarie was not used to int erpret this result as normal/abnormal . [facility] HospitalLngaehmLCEIHBJWPA4519-51-45 06:42:00 Test Item Value Reference Range Interpretation Comments Segs-Bands # (test code = Segs-Bands #) 9.9 1.5-8.1 H [facility] HospitalNhuhrsyFPARJLFBTR4335-58-05 06:42:00 Test Item Value Reference Range Interpretation Comments Lymphocytes # (test code = Lymphocytes 1.2 1.0-5.5 N #) [facility]ZklyemeJJFHORNYKA2842-75-13 06:42:00 Test Item Value Reference Range Interpretation Comments Monocytes # (test code 1.3 See_Comment H [Aut omated message] The = Monocytes #) system which generated this result tra nsmitted reference range : <=0.8. The reference r annemarie was not used to int erpret this result as normal/abnormal . [facility] CenterEnkedngXQIRBASBX0390-29-19 06:42:00 Test Item Value Reference Range Interpretation Comments B/C Ratio (test code = B/C Ratio) 8 6-25 N [facility] CenterZanyinwRPCPGLCFB6481-46-43 06:42:00 Test Item Value Reference Range Interpretation Comments Globulin (test code = Globulin) 2.5 2.0-4.0 N [facility] CenterVzgqizxBELFDMYZL5759-86-15 06:42:00 Test Item Value Reference Range Interpretation Comments AGAP (test code = AGAP) 16.9 10.0-20.0 N [facility] CenterVerbkioJYLTRIVDA2689-00-80 06:42:00 Test Item Value Reference Range Interpretation Comments A/G Ratio (test code = A/G Ratio) 1.6 0.7-1.6 N [facility] CenterRmmgjuoKBYMAIUQY3842-43-01 06:42:00 Test Item Value Reference Range Interpretation Comments eGFR (test code = eGFR) 105 [facility] CenterKhjuincWZFBFJKWX5408-32-10 06:42:00 Test Item Value Reference Range Interpretation Comments Glucose Lvl (test code = Glucose Lvl) 109 70-99 H [facility] CenterFoupckyYQRGHQNOI6667-37-38 06:42:00 Test Item Value Reference Range Interpretation Comments ALT (test code = ALT) 26 See_Comment N [Auto mated message] The system which ge nerated this result transmit abdelrahman reference range : <=65. The reference range was not used to interpr et this result as gurpreet l/abnormal. [facility] CenterUudqrewPFNIHZEKZ0676-88-03 06:42:00 Test Item Value Reference Range Interpretation Comments Albumin Lvl (test code = Albumin Lvl) 3.9 3.5-5.0 N [facility] CenterCynhwwvHTOIUXREQ2663-80-61 06:42:00 Test Item Value Reference Range Interpretation Comments Alk Phos (test code = Alk Phos) 47 39-136 N [facility] CenterEkgrqpvSXPUFDXFF9409-68-86 06:42:00 Test Item Value Reference Range Interpretation Comments Total Protein (test code = Total 6.4 6.4-8.4 N Protein) [facility] CenterEqonkcwGXBFFREPS1956-88-67 06:42:00 Test Item Value Reference Range Interpretation Comments AST (test code = AST) 31 See_Comment N [Auto mated message] The system which ge nerated this result transmit abdelrahman reference range : <=37. The reference range was not used to interpr et this result as gurpreet l/abnormal. [facility] CenterCvmknrdVLYYCLBPD9832-74-16 06:42:00 Test Item Value Reference Range Interpretation Comments Calcium Lvl (test code = Calcium Lvl) 9.0 8.5-10.5 N [facility] CenterTeijcmyLYIBZRXEU7721-19-02 06:42:00 Test Item Value Reference Range Interpretation Comments Bili Total (test code = Bili Total) 0.4 0.2-1.3 N [facility] CenterWfkgukyPQXHIOIKA9373-65-79 06:42:00 Test Item Value Reference Range Interpretation Comments Chloride Lvl (test code = Chloride Lvl) 104 95-109 N [facility] CenterEdfxfbaQXIHKOHOM2601-78-81 06:42:00 Test Item Value Reference Range Interpretation Comments CO2 (test code = CO2) 24 24-32 N [facility] CenterNtfjnyjYKQNIFYHD4053-92-86 06:42:00 Test Item Value Reference Range Interpretation Comments Sodium Lvl (test code = Sodium Lvl) 141 135-145 N [facility] CenterLngprztLQOXDWFZH6930-66-43 06:42:00 Test Item Value Reference Range Interpretation Comments Potassium Lvl (test code = Potassium 3.9 3.5-5.1 N Lvl) [facility] CenterUiqynwxWABENYCNG4820-90-00 06:42:00 Test Item Value Reference Range Interpretation Comments BUN (test code = BUN) 8 7-22 N [facility] CenterJtxbwtdGWSBZGSEX4785-30-21 06:42:00 Test Item Value Reference Range Interpretation Comments Creatinine Lvl (test code = Creatinine 1.0 0.5-1.4 N Lvl) [facility] HospitalEdqlqmmOZSYUBQFVP2674-80-94 06:42:00 Test Item Value Reference Range Interpretation Comments MCH (test code = MCH) 30.2 pg 27.0-31.0 N [facility] HospitalNyeuvkqFEEQGPLNBO0078-21-97 06:42:00 Test Item Value Reference Range Interpretation Comments Platelet (test code = Platelet) 134 133-450 N [facility] HospitalQmgrpdgYXDPNIOTOF5569-39-79 06:42:00 Test Item Value Reference Range Interpretation Comments MPV (test code = MPV) 10.1 7.4-10.4 N [facility] HospitalOgliauzBUCZBPBKKK7634-86-84 06:42:00 Test Item Value Reference Range Interpretation Comments RDW (test code = RDW) 13.4 11.5-14.5 N [facility] HospitalEepvaaeICTTHJFYXJ1320-19-52 06:42:00 Test Item Value Reference Range Interpretation Comments Hct (test code = Hct) 39.4 42.0-54.0 L [facility] HospitalChcfhauWNJAVCMAVL5007-18-39 06:42:00 Test Item Value Reference Range Interpretation Comments MCV (test code = MCV) 89.5 80.0-94.0 N [facility] HospitalQlhwysrAXTDMYIPVT9015-18-44 06:42:00 Test Item Value Reference Range Interpretation Comments Hgb (test code = Hgb) 13.3 14.0-18.0 L [facility] [facility]HD[facility]WMT2631-73-38 06:42:00 Test Item Value Reference Range Interpretation Comments MCHC (test code = MCHC) 33.7 32.0-36.0 N [facility]OgvtkhnSWUJUWGFTB1824-45-08 06:42:00 Test Item Value Reference Range Interpretation Comments WBC (test code = WBC) 12.5 3.7-10.4 H [facility] HospitalSqigzxbPUOJLIYICZ1626-11-90 06:42:00 Test Item Value Reference Range Interpretation Comments RBC (test code = RBC) 4.40 4.70-6.10 L [facility] HospitalXaaqqhjCTYWTMXKRV7231-61-23 06:42:00 Test Item Value Reference Range Interpretation Comments Lymphocytes (test code = Lymphocytes) 9.4 20.0-40.0 L [facility] HospitalLrkcqqfFTQDRNALLY7914-56-99 06:42:00 Test Item Value Reference Range Interpretation Comments Monocytes (test code = Monocytes) 10.8 2.0-12.0 N [facility] HospitalQjzpjsiEMOQTYKRFW8790-56-05 06:42:00 Test Item Value Reference Range Interpretation Comments Segs (test code = Segs) 79.6 45.0-75.0 H [facility] HospitalYbdgksrLSDXPGJQGO1734-22-06 06:42:00 Test Item Value Reference Range Interpretation Comments Eosinophils (test code = 0.1 See_Comment N [A utomated message] The Eosinophils) system which ge nerated this result tra nsmitted reference range : <=4.0. The reference r annemarie was not used to int erpret this result as normal/abnormal . [facility] HospitalHgqgfqrKVTXSVPDPU1479-06-99 06:42:00 Test Item Value Reference Range Interpretation Comments Basophils (test code = 0.1 See_Comment N [Aut omated message] The Basophils) system which ge nerated this result tra nsmitted reference range : <=1.0. The reference r annemarie was not used to int erpret this result as normal/abnormal . [facility] HospitalMlodxdfPQHCIMAIUA3151-05-19 06:42:00 Test Item Value Reference Range Interpretation Comments Segs-Bands # (test code = Segs-Bands #) 9.9 1.5-8.1 H [facility] HospitalJdltxqgTMBQLZKSVA2590-67-85 06:42:00 Test Item Value Reference Range Interpretation Comments Lymphocytes # (test code = Lymphocytes 1.2 1.0-5.5 N #) [facility] HospitalLsiqmxdDNZDPZTTJN3900-28-03 06:42:00 Test Item Value Reference Range Interpretation Comments Monocytes # (test code 1.3 See_Comment H [Aut omated message] The = Monocytes #) system which generated this result tra nsmitted reference range : <=0.8. The reference r annemarie was not used to int erpret this result as normal/abnormal . [facility]XixecjoXRKTUJGAP9939-26-08 06:42:00 Test Item Value Reference Range Interpretation Comments B/C Ratio (test code = B/C Ratio) 8 6-25 N [facility] CenterHdjakrkNMFPBLTTY5034-21-73 06:42:00 Test Item Value Reference Range Interpretation Comments Globulin (test code = Globulin) 2.5 2.0-4.0 N [facility] CenterUrecxusNAFUYSOPF9365-41-84 06:42:00 Test Item Value Reference Range Interpretation Comments AGAP (test code = AGAP) 16.9 10.0-20.0 N [facility] CenterAivvbtlYVUYAUEUM7807-61-04 06:42:00 Test Item Value Reference Range Interpretation Comments A/G Ratio (test code = A/G Ratio) 1.6 0.7-1.6 N [facility] CenterRjyfonyESSCFMZLN2088-38-99 06:42:00 Test Item Value Reference Range Interpretation Comments eGFR (test code = eGFR) 105 [facility]MsdkwekTTNSBKSCQ5758-56-91 06:42:00 Test Item Value Reference Range Interpretation Comments Glucose Lvl (test code = Glucose Lvl) 109 70-99 H [facility] HospitalAompcfrOVVVEVZFC0853-68-90 06:42:00 Test Item Value Reference Range Interpretation Comments ALT (test code = ALT) 26 See_Comment N [Auto mated message] The system which ge nerated this result transmit abdelrahman reference range : <=65. The reference range was not used to interpr et this result as gurpreet l/abnormal. [facility] HospitalZnfyvtyKJOMAHMZG7345-69-37 06:42:00 Test Item Value Reference Range Interpretation Comments Albumin Lvl (test code = Albumin Lvl) 3.9 3.5-5.0 N [facility] HospitalAfsvtliIGCUNEXTK7410-49-90 06:42:00 Test Item Value Reference Range Interpretation Comments Alk Phos (test code = Alk Phos) 47 39-136 N [facility] HospitalVorsbfxECJMRNUMC5538-25-50 06:42:00 Test Item Value Reference Range Interpretation Comments Total Protein (test code = Total 6.4 6.4-8.4 N Protein) [facility] CenterWozooqqQGUHJPZRW3867-51-69 06:42:00 Test Item Value Reference Range Interpretation Comments AST (test code = AST) 31 See_Comment N [Auto mated message] The system which ge nerated this result transmit abdelrahman reference range : <=37. The reference range was not used to interpr et this result as gurpreet l/abnormal. [facility] HospitalWnalymvIDBTRGFZH9274-56-29 06:42:00 Test Item Value Reference Range Interpretation Comments Calcium Lvl (test code = Calcium Lvl) 9.0 8.5-10.5 N [facility] HospitalUfqicggQMCAWNFYD2329-22-68 06:42:00 Test Item Value Reference Range Interpretation Comments Bili Total (test code = Bili Total) 0.4 0.2-1.3 N [facility] HospitalIhhtmbiJJJLQBPEV6571-61-17 06:42:00 Test Item Value Reference Range Interpretation Comments Chloride Lvl (test code = Chloride Lvl) 104 95-109 N [facility] HospitalNdflvktDBMWWVSOG4779-34-47 06:42:00 Test Item Value Reference Range Interpretation Comments CO2 (test code = CO2) 24 24-32 N [facility] CenterRebotucTRWNAPDNV4202-11-38 06:42:00 Test Item Value Reference Range Interpretation Comments Sodium Lvl (test code = Sodium Lvl) 141 135-145 N [facility] CenterWoxflqeOSMVVPKWI2468-72-49 06:42:00 Test Item Value Reference Range Interpretation Comments Potassium Lvl (test code = Potassium 3.9 3.5-5.1 N Lvl) [facility] CenterSvdzkuaIZIUQKOFV6250-99-15 06:42:00 Test Item Value Reference Range Interpretation Comments BUN (test code = BUN) 8 7-22 N [facility] CenterLjqkiuoQXUFGASEJ8430-46-87 06:42:00 Test Item Value Reference Range Interpretation Comments Creatinine Lvl (test code = Creatinine 1.0 0.5-1.4 N Lvl) [facility] HospitalXyunqzuHQOMFRYXON4578-04-72 06:42:00 Test Item Value Reference Range Interpretation Comments MCH (test code = MCH) 30.2 pg 27.0-31.0 N [facility] HospitalAkjbwfuMVGYXVUAIN1527-39-72 06:42:00 Test Item Value Reference Range Interpretation Comments Platelet (test code = Platelet) 134 133-450 N [facility] HospitalYfdgtaaCPVBNIUGMT5378-20-05 06:42:00 Test Item Value Reference Range Interpretation Comments MPV (test code = MPV) 10.1 7.4-10.4 N [facility] HospitalOmykzwvBYXEGDQAXB2433-78-45 06:42:00 Test Item Value Reference Range Interpretation Comments RDW (test code = RDW) 13.4 11.5-14.5 N [facility] HospitalBdqgnvvGEOSHYZKPB7296-02-04 06:42:00 Test Item Value Reference Range Interpretation Comments Hct (test code = Hct) 39.4 42.0-54.0 L [facility] HospitalKnqacfiEQTSKURMSJ5691-31-23 06:42:00 Test Item Value Reference Range Interpretation Comments MCV (test code = MCV) 89.5 80.0-94.0 N [facility] HospitalXdiveqwDSNNTNOYFC9074-90-92 06:42:00 Test Item Value Reference Range Interpretation Comments Hgb (test code = Hgb) 13.3 14.0-18.0 L [facility] HospitalRzleiheQDLWRHRAMK1800-77-70 06:42:00 Test Item Value Reference Range Interpretation Comments MCHC (test code = MCHC) 33.7 32.0-36.0 N [facility] HospitalHdoxdgdPSUVCCDROC2276-50-57 06:42:00 Test Item Value Reference Range Interpretation Comments WBC (test code = WBC) 12.5 3.7-10.4 H [facility] HospitalCaiguysSKAHLUACUU1059-25-97 06:42:00 Test Item Value Reference Range Interpretation Comments RBC (test code = RBC) 4.40 4.70-6.10 L [facility] HospitalSjfsbkkZIKFQXHKDU9048-17-94 06:42:00 Test Item Value Reference Range Interpretation Comments Lymphocytes (test code = Lymphocytes) 9.4 20.0-40.0 L [facility] HospitalVfhrjwaTIJWLVGFJY5970-87-30 06:42:00 Test Item Value Reference Range Interpretation Comments Monocytes (test code = Monocytes) 10.8 2.0-12.0 N [facility] HospitalRjappxpPWQAKXDPLF5069-12-94 06:42:00 Test Item Value Reference Range Interpretation Comments Segs (test code = Segs) 79.6 45.0-75.0 H [facility] HospitalXyvskwyPSWKHFKABY1719-41-63 06:42:00 Test Item Value Reference Range Interpretation Comments Eosinophils (test code = 0.1 See_Comment N [A utomated message] The Eosinophils) system which ge nerated this result tra nsmitted reference range : <=4.0. The reference r annemarie was not used to int erpret this result as normal/abnormal . [facility] HospitalIjbnaodURGFURGPHP0060-99-47 06:42:00 Test Item Value Reference Range Interpretation Comments Basophils (test code = 0.1 See_Comment N [Aut omated message] The Basophils) system which ge nerated this result tra nsmitted reference range : <=1.0. The reference r annemarie was not used to int erpret this result as normal/abnormal . [facility] HospitalLavgjnuCEGJQYQIEL5601-30-72 06:42:00 Test Item Value Reference Range Interpretation Comments Segs-Bands # (test code = Segs-Bands #) 9.9 1.5-8.1 H [facility] HospitalBtitygyAFWVWZDCKZ4592-72-06 06:42:00 Test Item Value Reference Range Interpretation Comments Lymphocytes # (test code = Lymphocytes 1.2 1.0-5.5 N #) [facility] HospitalPmshbvpCXDCJNLZUK4644-06-17 06:42:00 Test Item Value Reference Range Interpretation Comments Monocytes # (test code 1.3 See_Comment H [Aut omated message] The = Monocytes #) system which generated this result tra nsmitted reference range : <=0.8. The reference r annemarie was not used to int erpret this result as normal/abnormal . [facility] CenterVduyxiiKUKZBUNKP2653-33-18 06:42:00 Test Item Value Reference Range Interpretation Comments B/C Ratio (test code = B/C Ratio) 8 6-25 N [facility] CenterCfvqdrqSSSQICSPE5790-49-16 06:42:00 Test Item Value Reference Range Interpretation Comments Globulin (test code = Globulin) 2.5 2.0-4.0 N [facility] CenterZvksqhiRXWXTHVWW5542-05-67 06:42:00 Test Item Value Reference Range Interpretation Comments AGAP (test code = AGAP) 16.9 10.0-20.0 N [facility] CenterDfhkgjxXQXPDWLFP2437-71-39 06:42:00 Test Item Value Reference Range Interpretation Comments A/G Ratio (test code = A/G Ratio) 1.6 0.7-1.6 N [facility] CenterUmyajbbWDLZBGBSB7132-70-09 06:42:00 Test Item Value Reference Range Interpretation Comments eGFR (test code = eGFR) 105 [facility] CenterHsjjgqpVMGWVLXNH7584-13-79 06:42:00 Test Item Value Reference Range Interpretation Comments Glucose Lvl (test code = Glucose Lvl) 109 70-99 H [facility] CenterAkucxohKIQLLYURJ2135-49-08 06:42:00 Test Item Value Reference Range Interpretation Comments ALT (test code = ALT) 26 See_Comment N [Auto mated message] The system which ge nerated this result transmit abdelrahman reference range : <=65. The reference range was not used to interpr et this result as gurpreet l/abnormal. [facility] CenterGafwjlqFNLHEVZQQ8691-60-88 06:42:00 Test Item Value Reference Range Interpretation Comments Albumin Lvl (test code = Albumin Lvl) 3.9 3.5-5.0 N [facility] CenterIbeloofVEXMCFZHY7968-32-46 06:42:00 Test Item Value Reference Range Interpretation Comments Alk Phos (test code = Alk Phos) 47 39-136 N [facility] CenterThklyoeZZDEBDAZB9617-19-08 06:42:00 Test Item Value Reference Range Interpretation Comments Total Protein (test code = Total 6.4 6.4-8.4 N Protein) [facility] CenterZqymkkrOADETEAIQ8561-57-89 06:42:00 Test Item Value Reference Range Interpretation Comments AST (test code = AST) 31 See_Comment N [Auto mated message] The system which ge nerated this result transmit abdelrahman reference range : <=37. The reference range was not used to interpr et this result as gurpreet l/abnormal. [facility] CenterRxlwlmwQVNLVGFXH0569-87-94 06:42:00 Test Item Value Reference Range Interpretation Comments Calcium Lvl (test code = Calcium Lvl) 9.0 8.5-10.5 N [facility] CenterAortmerSMODWNAJR7108-54-83 06:42:00 Test Item Value Reference Range Interpretation Comments Bili Total (test code = Bili Total) 0.4 0.2-1.3 N [facility] CenterVylesvzLGRDEIOCN6375-74-26 06:42:00 Test Item Value Reference Range Interpretation Comments Chloride Lvl (test code = Chloride Lvl) 104 95-109 N [facility] CenterOroeskvYIFNQNVPF4958-24-35 06:42:00 Test Item Value Reference Range Interpretation Comments CO2 (test code = CO2) 24 24-32 N [facility] CenterUczjswxBURFRCTXB0570-06-66 06:42:00 Test Item Value Reference Range Interpretation Comments Sodium Lvl (test code = Sodium Lvl) 141 135-145 N [facility] CenterRrmclllLNUUUXQLD1073-91-70 06:42:00 Test Item Value Reference Range Interpretation Comments Potassium Lvl (test code = Potassium 3.9 3.5-5.1 N Lvl) [facility] CenterHvflfxjQTEGVMIYS8250-83-91 06:42:00 Test Item Value Reference Range Interpretation Comments BUN (test code = BUN) 8 7-22 N [facility] CenterOoqpjjqIEHZIFCKG7906-45-84 06:42:00 Test Item Value Reference Range Interpretation Comments Creatinine Lvl (test code = Creatinine 1.0 0.5-1.4 N Lvl) [facility] HospitalMsohqicTJURKVZBYH5364-99-21 06:42:00 Test Item Value Reference Range Interpretation Comments MCH (test code = MCH) 30.2 pg 27.0-31.0 N [facility] HospitalGiinvbpKWZLUNGUXK5920-05-46 06:42:00 Test Item Value Reference Range Interpretation Comments Platelet (test code = Platelet) 134 133-450 N [facility] HospitalPhohnoiIQKSWAJTRP2442-84-98 06:42:00 Test Item Value Reference Range Interpretation Comments MPV (test code = MPV) 10.1 7.4-10.4 N [facility] HospitalOuimzhkETWTKIHRVE4427-52-66 06:42:00 Test Item Value Reference Range Interpretation Comments RDW (test code = RDW) 13.4 11.5-14.5 N [facility] HospitalAkglbtjHSHHWKFPYH4788-90-44 06:42:00 Test Item Value Reference Range Interpretation Comments Hct (test code = Hct) 39.4 42.0-54.0 L [facility] HospitalBzxlqynNROHCLIQBW1770-56-30 06:42:00 Test Item Value Reference Range Interpretation Comments MCV (test code = MCV) 89.5 80.0-94.0 N [facility] HospitalWhvhnfqEPOGOLBIVS5143-06-68 06:42:00 Test Item Value Reference Range Interpretation Comments Hgb (test code = Hgb) 13.3 14.0-18.0 L [facility] HospitalPtymhapNNMILDVTEI1895-05-85 06:42:00 Test Item Value Reference Range Interpretation Comments MCHC (test code = MCHC) 33.7 32.0-36.0 N [facility] HospitalKsdsvdvGKMFUTGNXM6748-95-44 06:42:00 Test Item Value Reference Range Interpretation Comments WBC (test code = WBC) 12.5 3.7-10.4 H [facility] HospitalNljgnhsMKPHFHICBC0124-37-18 06:42:00 Test Item Value Reference Range Interpretation Comments RBC (test code = RBC) 4.40 4.70-6.10 L [facility] HospitalXsxlyivBZZQAQECVU8183-13-46 06:42:00 Test Item Value Reference Range Interpretation Comments Lymphocytes (test code = Lymphocytes) 9.4 20.0-40.0 L [facility] HospitalIoouvqzWIGVHHVYLE8562-05-20 06:42:00 Test Item Value Reference Range Interpretation Comments Monocytes (test code = Monocytes) 10.8 2.0-12.0 N [facility] HospitalLjrtcweYEKZWQHAKF5032-45-62 06:42:00 Test Item Value Reference Range Interpretation Comments Segs (test code = Segs) 79.6 45.0-75.0 H [facility] HospitalGkcztxkFOJROIZZSD7520-08-15 06:42:00 Test Item Value Reference Range Interpretation Comments Eosinophils (test code = 0.1 See_Comment N [A utomated message] The Eosinophils) system which ge nerated this result tra nsmitted reference range : <=4.0. The reference r annemarie was not used to int erpret this result as normal/abnormal . [facility] HospitalEtytzmqEZMWTPSMTR3201-84-20 06:42:00 Test Item Value Reference Range Interpretation Comments Basophils (test code = 0.1 See_Comment N [Aut omated message] The Basophils) system which ge nerated this result tra nsmitted reference range : <=1.0. The reference r annemarie was not used to int erpret this result as normal/abnormal . [facility] HospitalNflixydVACDICTAKI9441-95-79 06:42:00 Test Item Value Reference Range Interpretation Comments Segs-Bands # (test code = Segs-Bands #) 9.9 1.5-8.1 H [facility] HospitalIjewmprFDSPTEBENH6865-06-57 06:42:00 Test Item Value Reference Range Interpretation Comments Lymphocytes # (test code = Lymphocytes 1.2 1.0-5.5 N #) [facility] HospitalMrplzfgXOVCTRKUBK9408-70-40 06:42:00 Test Item Value Reference Range Interpretation Comments Monocytes # (test code 1.3 See_Comment H [Aut omated message] The = Monocytes #) system which generated this result tra nsmitted reference range : <=0.8. The reference r annemarie was not used to int erpret this result as normal/abnormal . [facility] CenterTufsyedANOOUEYDD9541-26-18 06:42:00 Test Item Value Reference Range Interpretation Comments B/C Ratio (test code = B/C Ratio) 8 6-25 N [facility] CenterNgwlatbEMARJNPVW5335-89-06 06:42:00 Test Item Value Reference Range Interpretation Comments Globulin (test code = Globulin) 2.5 2.0-4.0 N [facility] CenterGwpihpgIHGQYOAGD7335-38-68 06:42:00 Test Item Value Reference Range Interpretation Comments AGAP (test code = AGAP) 16.9 10.0-20.0 N [facility] CenterGzcjomrXPECSQLPY4634-87-94 06:42:00 Test Item Value Reference Range Interpretation Comments A/G Ratio (test code = A/G Ratio) 1.6 0.7-1.6 N [facility] CenterGxjoedbGACZIYDWX5860-78-54 06:42:00 Test Item Value Reference Range Interpretation Comments eGFR (test code = eGFR) 105 [facility] CenterPlrnigzTGGNMVBIU5183-54-88 06:42:00 Test Item Value Reference Range Interpretation Comments Glucose Lvl (test code = Glucose Lvl) 109 70-99 H [facility]UmhrskrETJQXXXQP7675-07-30 06:42:00 Test Item Value Reference Range Interpretation Comments ALT (test code = ALT) 26 See_Comment N [Auto mated message] The system which ge nerated this result transmit abdelrahman reference range : <=65. The reference range was not used to interpr et this result as gurpreet l/abnormal. [facility] HospitalGgaibodKSCMUKHVX6663-02-54 06:42:00 Test Item Value Reference Range Interpretation Comments Albumin Lvl (test code = Albumin Lvl) 3.9 3.5-5.0 N [facility] HospitalRhaozcwKAKSMJKYY5328-36-78 06:42:00 Test Item Value Reference Range Interpretation Comments Alk Phos (test code = Alk Phos) 47 39-136 N [facility] HospitalAqmflnbBAKGSESJK3867-37-68 06:42:00 Test Item Value Reference Range Interpretation Comments Total Protein (test code = Total 6.4 6.4-8.4 N Protein) [facility] HospitalZztfuznPUXNOHVNZ3855-26-62 06:42:00 Test Item Value Reference Range Interpretation Comments AST (test code = AST) 31 See_Comment N [Auto mated message] The system which ge nerated this result transmit abdelrahman reference range : <=37. The reference range was not used to interpr et this result as gurpreet l/abnormal. [facility] HospitalQpcvovoGIRJSNKWV6717-26-47 06:42:00 Test Item Value Reference Range Interpretation Comments Calcium Lvl (test code = Calcium Lvl) 9.0 8.5-10.5 N [facility] HospitalPporjpmCVRBHEIWW2572-14-12 06:42:00 Test Item Value Reference Range Interpretation Comments Bili Total (test code = Bili Total) 0.4 0.2-1.3 N [facility] HospitalDxdtusrRDNNKSJXI5219-58-22 06:42:00 Test Item Value Reference Range Interpretation Comments Chloride Lvl (test code = Chloride Lvl) 104 95-109 N [facility] HospitalHajpawhWRPCSLFIQ3703-12-14 06:42:00 Test Item Value Reference Range Interpretation Comments CO2 (test code = CO2) 24 24-32 N [facility] HospitalDczbhlwRAZXNXKBM8320-47-74 06:42:00 Test Item Value Reference Range Interpretation Comments Sodium Lvl (test code = Sodium Lvl) 141 135-145 N [facility] HospitalCswkuqoALRFWZVRF7440-00-51 06:42:00 Test Item Value Reference Range Interpretation Comments Potassium Lvl (test code = Potassium 3.9 3.5-5.1 N Lvl) [facility] CenterIcsrqviWHOKPORJZ5556-03-10 06:42:00 Test Item Value Reference Range Interpretation Comments BUN (test code = BUN) 8 7-22 N [facility] CenterNcvrhlgQOCFIVQIW4533-03-25 06:42:00 Test Item Value Reference Range Interpretation Comments Creatinine Lvl (test code = Creatinine 1.0 0.5-1.4 N Lvl) [facility] HospitalNcbnjtgTAQOFEZFBW3357-38-38 06:42:00 Test Item Value Reference Range Interpretation Comments MCH (test code = MCH) 30.2 pg 27.0-31.0 N [facility] HospitalNqleytdWCDQMBKXWW5310-43-61 06:42:00 Test Item Value Reference Range Interpretation Comments Platelet (test code = Platelet) 134 133-450 N [facility] HospitalJsarxcsCVVCECPNHR0262-33-77 06:42:00 Test Item Value Reference Range Interpretation Comments MPV (test code = MPV) 10.1 7.4-10.4 N [facility] HospitalThsfaheNEDPMRUGPR4081-04-93 06:42:00 Test Item Value Reference Range Interpretation Comments RDW (test code = RDW) 13.4 11.5-14.5 N [facility] HospitalZbqwhltPQZEXDANOK3630-33-30 06:42:00 Test Item Value Reference Range Interpretation Comments Hct (test code = Hct) 39.4 42.0-54.0 L [facility] HospitalXdyfimhPXPUDMQWNH5361-07-11 06:42:00 Test Item Value Reference Range Interpretation Comments MCV (test code = MCV) 89.5 80.0-94.0 N [facility] HospitalVqwczupNICEODIUOL5731-09-33 06:42:00 Test Item Value Reference Range Interpretation Comments Hgb (test code = Hgb) 13.3 14.0-18.0 L [facility] HospitalRoikrtnCDZQMLJBLS7006-97-20 06:42:00 Test Item Value Reference Range Interpretation Comments MCHC (test code = MCHC) 33.7 32.0-36.0 N [facility] HospitalUdrmdalCDIBGZYQYH0987-94-95 06:42:00 Test Item Value Reference Range Interpretation Comments WBC (test code = WBC) 12.5 3.7-10.4 H [facility] HospitalQgzagoiTTSFSKAYGX4102-26-72 06:42:00 Test Item Value Reference Range Interpretation Comments RBC (test code = RBC) 4.40 4.70-6.10 L [facility] HospitalOsctxniBRIXCOUUBP8508-69-92 06:42:00 Test Item Value Reference Range Interpretation Comments Lymphocytes (test code = Lymphocytes) 9.4 20.0-40.0 L [facility] HospitalJmzefdpNQILSINGCL2253-65-05 06:42:00 Test Item Value Reference Range Interpretation Comments Monocytes (test code = Monocytes) 10.8 2.0-12.0 N [facility] HospitalWmcscebWUZFQPLLKW5482-37-47 06:42:00 Test Item Value Reference Range Interpretation Comments Segs (test code = Segs) 79.6 45.0-75.0 H [facility] HospitalEcoovgpZWJODWRVQE5670-52-50 06:42:00 Test Item Value Reference Range Interpretation Comments Eosinophils (test code = 0.1 See_Comment N [A utomated message] The Eosinophils) system which ge nerated this result tra nsmitted reference range : <=4.0. The reference r annemarie was not used to int erpret this result as normal/abnormal . [facility] HospitalFdnesaqTQCVVVLNLY4366-27-56 06:42:00 Test Item Value Reference Range Interpretation Comments Basophils (test code = 0.1 See_Comment N [Aut omated message] The Basophils) system which ge nerated this result tra nsmitted reference range : <=1.0. The reference r annemarie was not used to int erpret this result as normal/abnormal . [facility] HospitalUvvgfekRAWAPRGFLK8580-27-98 06:42:00 Test Item Value Reference Range Interpretation Comments Segs-Bands # (test code = Segs-Bands #) 9.9 1.5-8.1 H [facility] HospitalMlktiwvXEHFKGGTSX7887-27-09 06:42:00 Test Item Value Reference Range Interpretation Comments Lymphocytes # (test code = Lymphocytes 1.2 1.0-5.5 N #) [facility] HospitalBmwdflgLVJEFXJKRX9022-45-34 06:42:00 Test Item Value Reference Range Interpretation Comments Monocytes # (test code 1.3 See_Comment H [Aut omated message] The = Monocytes #) system which generated this result tra nsmitted reference range : <=0.8. The reference r annemarie was not used to int erpret this result as normal/abnormal . [facility] CenterUccjvfaWYQMENDDQ8569-76-33 06:42:00 Test Item Value Reference Range Interpretation Comments B/C Ratio (test code = B/C Ratio) 8 6-25 N [facility] CenterCwasatcFJIRTNCFR8540-27-26 06:42:00 Test Item Value Reference Range Interpretation Comments Globulin (test code = Globulin) 2.5 2.0-4.0 N [facility] CenterFxobbkwANJVANUFW6386-67-86 06:42:00 Test Item Value Reference Range Interpretation Comments AGAP (test code = AGAP) 16.9 10.0-20.0 N [facility] CenterRsdxzquYZYGVRDLR4900-74-22 06:42:00 Test Item Value Reference Range Interpretation Comments A/G Ratio (test code = A/G Ratio) 1.6 0.7-1.6 N [facility] CenterIgjispnANBKBGJWV2229-91-21 06:42:00 Test Item Value Reference Range Interpretation Comments eGFR (test code = eGFR) 105 [facility] CenterTvskusoPDMLZQRDR9989-74-84 06:42:00 Test Item Value Reference Range Interpretation Comments Glucose Lvl (test code = Glucose Lvl) 109 70-99 H [facility] CenterJyqsfpkJCHJTAOKC7706-16-83 06:42:00 Test Item Value Reference Range Interpretation Comments ALT (test code = ALT) 26 See_Comment N [Auto mated message] The system which ge nerated this result transmit abdelrahman reference range : <=65. The reference range was not used to interpr et this result as gurpreet l/abnormal. [facility] CenterLasdlqpNNMHDGWLR7897-49-79 06:42:00 Test Item Value Reference Range Interpretation Comments Albumin Lvl (test code = Albumin Lvl) 3.9 3.5-5.0 N [facility] CenterOnpivvsHGCKURYXX1725-00-35 06:42:00 Test Item Value Reference Range Interpretation Comments Alk Phos (test code = Alk Phos) 47 39-136 N [facility] CenterZanpdndKANWSVEVS7202-11-90 06:42:00 Test Item Value Reference Range Interpretation Comments Total Protein (test code = Total 6.4 6.4-8.4 N Protein) [facility] CenterLnqbxjhZYBCOZXNV6345-14-23 06:42:00 Test Item Value Reference Range Interpretation Comments AST (test code = AST) 31 See_Comment N [Auto mated message] The system which ge nerated this result transmit abedlrahman reference range : <=37. The reference range was not used to interpr et this result as gurpreet l/abnormal. [facility] CenterMyxevyyIGHYWOEPG9922-85-49 06:42:00 Test Item Value Reference Range Interpretation Comments Calcium Lvl (test code = Calcium Lvl) 9.0 8.5-10.5 N [facility] CenterExdsnbnNIIUNTJLX8961-80-58 06:42:00 Test Item Value Reference Range Interpretation Comments Bili Total (test code = Bili Total) 0.4 0.2-1.3 N [facility] CenterWpkgueyPUFGEORZU3419-41-16 06:42:00 Test Item Value Reference Range Interpretation Comments Chloride Lvl (test code = Chloride Lvl) 104 95-109 N [facility] CenterAljapllPHGIJAFXR2438-07-72 06:42:00 Test Item Value Reference Range Interpretation Comments CO2 (test code = CO2) 24 24-32 N [facility] CenterPjlsitjDSMBGUBMR5505-30-28 06:42:00 Test Item Value Reference Range Interpretation Comments Sodium Lvl (test code = Sodium Lvl) 141 135-145 N [facility] CenterPvzrunzKIBLNYZYM3713-70-91 06:42:00 Test Item Value Reference Range Interpretation Comments Potassium Lvl (test code = Potassium 3.9 3.5-5.1 N Lvl) [facility] CenterAajmoviDIMQHHZKH6035-32-55 06:42:00 Test Item Value Reference Range Interpretation Comments BUN (test code = BUN) 8 7-22 N [facility] CenterByowhmsVKJSIXFHJ8501-77-31 06:42:00 Test Item Value Reference Range Interpretation Comments Creatinine Lvl (test code = Creatinine 1.0 0.5-1.4 N Lvl) [facility]FrxcdekJCOFIVCFUA2421-39-33 06:42:00 Test Item Value Reference Range Interpretation Comments MCH (test code = MCH) 30.2 pg 27.0-31.0 N [facility] HospitalKempkjwZNOZGNOEVM7606-81-33 06:42:00 Test Item Value Reference Range Interpretation Comments Platelet (test code = Platelet) 134 133-450 N [facility] HospitalVhhzwagPRDVVDMOES1526-04-49 06:42:00 Test Item Value Reference Range Interpretation Comments MPV (test code = MPV) 10.1 7.4-10.4 N [facility] HospitalRbhtimiTNKMFUBSKU7608-57-14 06:42:00 Test Item Value Reference Range Interpretation Comments RDW (test code = RDW) 13.4 11.5-14.5 N [facility] HospitalHmrhtlqOYDXKNHIQC7574-24-92 06:42:00 Test Item Value Reference Range Interpretation Comments Hct (test code = Hct) 39.4 42.0-54.0 L [facility] HospitalLzmgovbFHTBSIDAHO1278-97-93 06:42:00 Test Item Value Reference Range Interpretation Comments MCV (test code = MCV) 89.5 80.0-94.0 N [facility] HospitalIbgpfwaMKBKTSWQKN2459-37-84 06:42:00 Test Item Value Reference Range Interpretation Comments Hgb (test code = Hgb) 13.3 14.0-18.0 L [facility] HospitalEqrxdagMTADATNUBE7634-62-96 06:42:00 Test Item Value Reference Range Interpretation Comments MCHC (test code = MCHC) 33.7 32.0-36.0 N [facility] HospitalXltniwnBAXQKIMXTX9095-22-80 06:42:00 Test Item Value Reference Range Interpretation Comments WBC (test code = WBC) 12.5 3.7-10.4 H [facility] HospitalOodboucJIQSMTKJAR5845-72-14 06:42:00 Test Item Value Reference Range Interpretation Comments RBC (test code = RBC) 4.40 4.70-6.10 L [facility] HospitalRmztvtcUSRNUBIVPP4412-57-82 06:42:00 Test Item Value Reference Range Interpretation Comments Lymphocytes (test code = Lymphocytes) 9.4 20.0-40.0 L [facility] HospitalHcgebrnEYJKAVLBIR0356-37-06 06:42:00 Test Item Value Reference Range Interpretation Comments Monocytes (test code = Monocytes) 10.8 2.0-12.0 N [facility] HospitalJcriumiDGERFHEIOW3172-31-09 06:42:00 Test Item Value Reference Range Interpretation Comments Segs (test code = Segs) 79.6 45.0-75.0 H [facility] HospitalMlswmmmDJIFFKSJJW9301-83-10 06:42:00 Test Item Value Reference Range Interpretation Comments Eosinophils (test code = 0.1 See_Comment N [A utomated message] The Eosinophils) system which ge nerated this result tra nsmitted reference range : <=4.0. The reference r annemarie was not used to int erpret this result as normal/abnormal . [facility] HospitalChpmsdeKMSTNPSBES2712-46-56 06:42:00 Test Item Value Reference Range Interpretation Comments Basophils (test code = 0.1 See_Comment N [Aut omated message] The Basophils) system which ge nerated this result tra nsmitted reference range : <=1.0. The reference r annemarie was not used to int erpret this result as normal/abnormal . [facility] HospitalRgewzvhYRXTHEQILP9590-26-73 06:42:00 Test Item Value Reference Range Interpretation Comments Segs-Bands # (test code = Segs-Bands #) 9.9 1.5-8.1 H [facility] HospitalUulxjmzGGWKYOHJXM1463-10-06 06:42:00 Test Item Value Reference Range Interpretation Comments Lymphocytes # (test code = Lymphocytes 1.2 1.0-5.5 N #) [facility] HospitalOmohirwVCVJIWLSJV1546-17-59 06:42:00 Test Item Value Reference Range Interpretation Comments Monocytes # (test code 1.3 See_Comment H [Aut omated message] The = Monocytes #) system which generated this result tra nsmitted reference range : <=0.8. The reference r annemarie was not used to int erpret this result as normal/abnormal . [facility] CenterYffnpudBDCAOQNPF4324-46-05 09:00:49 Test Item Value Reference Range Interpretation Comments Lactic Acid Lvl (test code = Lactic 2.0 0.5-2.2 N Acid Lvl) [facility] CenterUztjctqKUECWIAVW4506-76-31 09:00:49 Test Item Value Reference Range Interpretation Comments Lactic Acid Lvl (test code = Lactic 2.0 0.5-2.2 N Acid Lvl) [facility] CenterScejmkhCJTCXDURA1842-30-76 09:00:49 Test Item Value Reference Range Interpretation Comments Lactic Acid Lvl (test code = Lactic 2.0 0.5-2.2 N Acid Lvl) [facility] CenterWbbamekUHVPBBGYJ8088-39-27 09:00:49 Test Item Value Reference Range Interpretation Comments Lactic Acid Lvl (test code = Lactic 2.0 0.5-2.2 N Acid Lvl) [facility] CenterIiowtjbLJMDBQREZ5830-92-33 09:00:49 Test Item Value Reference Range Interpretation Comments Lactic Acid Lvl (test code = Lactic 2.0 0.5-2.2 N Acid Lvl) [facility] CenterIrwadscZOCVJQXKJ3587-63-26 09:00:49 Test Item Value Reference Range Interpretation Comments Lactic Acid Lvl (test code = Lactic 2.0 0.5-2.2 N Acid Lvl) [facility] CenterAutpnycMYEWWAKCY0217-12-55 09:00:49 Test Item Value Reference Range Interpretation Comments Lactic Acid Lvl (test code = Lactic 2.0 0.5-2.2 N Acid Lvl) [facility] CenterJjpjhawGGTOWHSEY6080-84-66 09:00:49 Test Item Value Reference Range Interpretation Comments Lactic Acid Lvl (test code = Lactic 2.0 0.5-2.2 N Acid Lvl) [facility] CenterTecrlafKLUFSYLBX7440-68-15 03:30:38 Test Item Value Reference Range Interpretation Comments UDS Note (test code = See Note 5(12/28/2012 N UDS Note) 22:30:38) [facility] CenterSyipngjOFMQDZVZV1599-60-81 03:30:38 Test Item Value Reference Range Interpretation Comments U Phencyc Scr (test Negative code = U Phencyc Scr) *NA*(12/28/2012 22:30:38) [facility] CenterMeosaguKTQFULIMP6112-23-83 03:30:38 Test Item Value Reference Range Interpretation Comments U Opiate Scr (test Positive A code = U Opiate Scr) *ABN*(12/28/2012 22:30:38) [facility] CenterQbihskbWTZRXWODE8821-78-31 03:30:38 Test Item Value Reference Range Interpretation Comments U Cannab Scr (test Negative code = U Cannab Scr) *NA*(12/28/2012 22:30:38) [facility] CenterKopvdgwDNYIIEQRM9334-90-12 03:30:38 Test Item Value Reference Range Interpretation Comments U Benzodia Scr (test Negative code = U Benzodia Scr) *NA*(12/28/2012 22:30:38) [facility] CenterDrqotcvFBTJVBMOG1900-98-95 03:30:38 Test Item Value Reference Range Interpretation Comments U Odalys Scr (test code Negative *NA*(12/28/2012 = U Odalys Scr) 22:30:38) [facility] CenterPtpkqxjYMXMLTNHT4780-84-50 03:30:38 Test Item Value Reference Range Interpretation Comments U Amph Scr (test code Negative *NA*(12/28/2012 = U Amph Scr) 22:30:38) [facility] CenterSbsgljpHXULOTBDR9542-30-13 03:30:38 Test Item Value Reference Range Interpretation Comments U Cocaine Scr (test Negative code = U Cocaine Scr) *NA*(12/28/2012 22:30:38) [facility]WoscjtkMYHJZYEBFQ2243-28-85 03:30:38 Test Item Value Reference Range Interpretation Comments UA Ketones (test code Negative mg/dL = UA Ketones) *NA*(12/28/2012 22:30:38) [facility] SouthRusgiqoABZUKBOMKX8834-90-26 03:30:38 Test Item Value Reference Range Interpretation Comments UA Bili (test code = Negative *NA*(12/28/2012 UA Bili) 22:30:38) [facility] SouthEgsyphkJVZTCWWAQL8276-65-62 03:30:38 Test Item Value Reference Range Interpretation Comments UA Nitrite (test code Negative (12/28/2012 N = UA Nitrite) 22:30:38) [facility] SouthCpasohyOMEWKXAHPG8791-97-66 03:30:38 Test Item Value Reference Range Interpretation Comments UA Urobilinogen (test code = UA 0.2 0.1-1.0 N Urobilinogen) [facility] SouthWddmprhKOQYRHUQEN2953-72-22 03:30:38 Test Item Value Reference Range Interpretation Comments UA Blood (test code = Negative (12/28/2012 N UA Blood) 22:30:38) [facility] SouthLvyfmycMWNMYDSAZU8530-05-15 03:30:38 Test Item Value Reference Range Interpretation Comments UA Leuk Est (test Negative (12/28/2012 N code = UA Leuk Est) 22:30:38) [facility] SouthWspoijxVVAEHCEQNA5555-74-93 03:30:38 Test Item Value Reference Range Interpretation Comments UA pH (test code = UA pH) 7.0 1 5.0-8.0 N [facility] SouthJbhdpjhSVDMSUNUCX1662-37-50 03:30:38 Test Item Value Reference Range Interpretation Comments UA Glucose (test code Negative mg/dL N = UA Glucose) (12/28/2012 22:30:38) [facility] SouthSuuqvgzBUPVQPREPF7292-60-20 03:30:38 Test Item Value Reference Range Interpretation Comments UA Spec Grav (test code = UA Spec 1.010 1 N Grav) [facility] SouthAinrajtTDQCICTXZJ3815-65-55 03:30:38 Test Item Value Reference Range Interpretation Comments UA Protein (test code Negative mg/dL N = UA Protein) (12/28/2012 22:30:38) [facility] SouthVzxhupjOUUEHVLKID5635-37-18 03:30:38 Test Item Value Reference Range Interpretation Comments UA Turbidity (test code = Clear (12/28/2012 N UA Turbidity) 22:30:38) [facility] SouthTsqeuslAQZOMMFEGD1999-02-84 03:30:38 Test Item Value Reference Range Interpretation Comments UA Color (test code = Yellow *NA*(12/28/2012 UA Color) 22:30:38) [facility] CenterCrixvopYWAEXMKSB6550-88-17 03:30:38 Test Item Value Reference Range Interpretation Comments UDS Note (test code = See Note 5(12/28/2012 N UDS Note) 22:30:38) [facility] CenterCcsqxhwZJNEPISXE5343-78-55 03:30:38 Test Item Value Reference Range Interpretation Comments U Phencyc Scr (test Negative code = U Phencyc Scr) *NA*(12/28/2012 22:30:38) [facility] CenterMoqaeokMKDPBICNI6241-91-01 03:30:38 Test Item Value Reference Range Interpretation Comments U Opiate Scr (test Positive A code = U Opiate Scr) *ABN*(12/28/2012 22:30:38) [facility] CenterHfdrelcTHJYNOXWQ4400-38-86 03:30:38 Test Item Value Reference Range Interpretation Comments U Cannab Scr (test Negative code = U Cannab Scr) *NA*(12/28/2012 22:30:38) [facility] CenterWebnihzMLITZNPHP5784-08-80 03:30:38 Test Item Value Reference Range Interpretation Comments U Benzodia Scr (test Negative code = U Benzodia Scr) *NA*(12/28/2012 22:30:38) [facility] CenterGilbhqkJVURMXZYA3443-38-94 03:30:38 Test Item Value Reference Range Interpretation Comments U Odalys Scr (test code Negative *NA*(12/28/2012 = U Odalys Scr) 22:30:38) [facility] CenterAyjbytnBDRVSHVGK5054-18-26 03:30:38 Test Item Value Reference Range Interpretation Comments U Amph Scr (test code Negative *NA*(12/28/2012 = U Amph Scr) 22:30:38) [facility] CenterYghgkfvZUSVQNADE3969-46-43 03:30:38 Test Item Value Reference Range Interpretation Comments U Cocaine Scr (test Negative code = U Cocaine Scr) *NA*(12/28/2012 22:30:38) [facility] SouthZkucnprAOTSMRJRYS2380-37-09 03:30:38 Test Item Value Reference Range Interpretation Comments UA Ketones (test code Negative mg/dL = UA Ketones) *NA*(12/28/2012 22:30:38) [facility] SouthSjgnuxlLJRJBWBRUY8173-30-45 03:30:38 Test Item Value Reference Range Interpretation Comments UA Bili (test code = Negative *NA*(12/28/2012 UA Bili) 22:30:38) [facility] SouthXilddirFBPYSAMIHB0164-49-29 03:30:38 Test Item Value Reference Range Interpretation Comments UA Nitrite (test code Negative (12/28/2012 N = UA Nitrite) 22:30:38) [facility] SouthIwyaxaxEZLKSASIRP1461-63-80 03:30:38 Test Item Value Reference Range Interpretation Comments UA Urobilinogen (test code = UA 0.2 0.1-1.0 N Urobilinogen) [facility] SouthZybntdpCVYEQPWQZX3215-25-59 03:30:38 Test Item Value Reference Range Interpretation Comments UA Blood (test code = Negative (12/28/2012 N UA Blood) 22:30:38) [facility] SouthVobvpufUMOTPYJSIG0007-59-75 03:30:38 Test Item Value Reference Range Interpretation Comments UA Leuk Est (test Negative (12/28/2012 N code = UA Leuk Est) 22:30:38) [facility] SouthPuhdbisYFKENRHHJU8128-87-93 03:30:38 Test Item Value Reference Range Interpretation Comments UA pH (test code = UA pH) 7.0 1 5.0-8.0 N [facility] SouthDkfwzdsHCDXCRQDBW8296-43-40 03:30:38 Test Item Value Reference Range Interpretation Comments UA Glucose (test code Negative mg/dL N = UA Glucose) (12/28/2012 22:30:38) [facility] SouthFsvrrbqYACJJHHKLL5946-30-92 03:30:38 Test Item Value Reference Range Interpretation Comments UA Spec Grav (test code = UA Spec 1.010 1 N Grav) [facility] SouthOyxxnthNXTSIKCOSA1368-70-32 03:30:38 Test Item Value Reference Range Interpretation Comments UA Protein (test code Negative mg/dL N = UA Protein) (12/28/2012 22:30:38) [facility] CenterHvzsnvvGUJVLETWVC2539-14-36 03:30:38 Test Item Value Reference Range Interpretation Comments UA Turbidity (test code = Clear (12/28/2012 N UA Turbidity) 22:30:38) [facility] SouthEoxfwknTOBDMKLJEF7160-88-06 03:30:38 Test Item Value Reference Range Interpretation Comments UA Color (test code = Yellow *NA*(12/28/2012 UA Color) 22:30:38) [facility] CenterSrjxlzzPANLKJGVY6321-27-39 03:30:38 Test Item Value Reference Range Interpretation Comments UDS Note (test code = See Note 5(12/28/2012 N UDS Note) 22:30:38) [facility] CenterAwerpryWVGUAXXGZ6697-16-26 03:30:38 Test Item Value Reference Range Interpretation Comments U Phencyc Scr (test Negative code = U Phencyc Scr) *NA*(12/28/2012 22:30:38) [facility] CenterBzftwomQUMVLSQUH3438-18-16 03:30:38 Test Item Value Reference Range Interpretation Comments U Opiate Scr (test Positive A code = U Opiate Scr) *ABN*(12/28/2012 22:30:38) [facility] CenterJyrnqrgVCDGMADHM6820-25-84 03:30:38 Test Item Value Reference Range Interpretation Comments U Cannab Scr (test Negative code = U Cannab Scr) *NA*(12/28/2012 22:30:38) [facility] CenterXuynphtTDVORKWEC2573-47-42 03:30:38 Test Item Value Reference Range Interpretation Comments U Benzodia Scr (test Negative code = U Benzodia Scr) *NA*(12/28/2012 22:30:38) [facility] CenterUmntqruWOTWJTRVQ7551-85-91 03:30:38 Test Item Value Reference Range Interpretation Comments U Odalys Scr (test code Negative *NA*(12/28/2012 = U Odalys Scr) 22:30:38) [facility] CenterGdkjibnDEQIKHRRP1897-68-27 03:30:38 Test Item Value Reference Range Interpretation Comments U Amph Scr (test code Negative *NA*(12/28/2012 = U Amph Scr) 22:30:38) [facility] CenterMlzwqqdHDPEQBPUT7372-38-43 03:30:38 Test Item Value Reference Range Interpretation Comments U Cocaine Scr (test Negative code = U Cocaine Scr) *NA*(12/28/2012 22:30:38) [facility] SouthZbxlevgBBJTQIYLVM2273-73-67 03:30:38 Test Item Value Reference Range Interpretation Comments UA Ketones (test code Negative mg/dL = UA Ketones) *NA*(12/28/2012 22:30:38) [facility] SouthLwfhipfZAZLOCEDFO9957-74-23 03:30:38 Test Item Value Reference Range Interpretation Comments UA Bili (test code = Negative *NA*(12/28/2012 UA Bili) 22:30:38) [facility] SouthMfgjeojPRUTLUWOEV9746-29-80 03:30:38 Test Item Value Reference Range Interpretation Comments UA Nitrite (test code Negative (12/28/2012 N = UA Nitrite) 22:30:38) [facility] SouthBwimjlwTYOCSELYPJ7488-15-07 03:30:38 Test Item Value Reference Range Interpretation Comments UA Urobilinogen (test code = UA 0.2 0.1-1.0 N Urobilinogen) [facility] SouthDcganniJZZNQJMYKN2829-85-72 03:30:38 Test Item Value Reference Range Interpretation Comments UA Blood (test code = Negative (12/28/2012 N UA Blood) 22:30:38) [facility] SouthAhkqjvjIJVHMOQLLT9721-79-86 03:30:38 Test Item Value Reference Range Interpretation Comments UA Leuk Est (test Negative (12/28/2012 N code = UA Leuk Est) 22:30:38) [facility] SouthYwunwmvIDHTFNFTBU7627-21-86 03:30:38 Test Item Value Reference Range Interpretation Comments UA pH (test code = UA pH) 7.0 1 5.0-8.0 N [facility] SouthVafwjoxPZVXOMISMT9251-22-91 03:30:38 Test Item Value Reference Range Interpretation Comments UA Glucose (test code Negative mg/dL N = UA Glucose) (12/28/2012 22:30:38) [facility] SouthBgebtblAKGKMMJIQV7996-48-59 03:30:38 Test Item Value Reference Range Interpretation Comments UA Spec Grav (test code = UA Spec 1.010 1 N Grav) [facility] SouthUqseyypHNBHQAQCML4323-59-52 03:30:38 Test Item Value Reference Range Interpretation Comments UA Protein (test code Negative mg/dL N = UA Protein) (12/28/2012 22:30:38) [facility] SouthYebmovgCGWZLZCEAF3917-13-49 03:30:38 Test Item Value Reference Range Interpretation Comments UA Turbidity (test code = Clear (12/28/2012 N UA Turbidity) 22:30:38) [facility] SouthKesohifOVEDPRMGHL5225-44-97 03:30:38 Test Item Value Reference Range Interpretation Comments UA Color (test code = Yellow *NA*(12/28/2012 UA Color) 22:30:38) [facility] CenterHtqnklcUJTIDTNJS7511-05-31 03:30:38 Test Item Value Reference Range Interpretation Comments UDS Note (test code = See Note 5(12/28/2012 N UDS Note) 22:30:38) [facility] CenterXvqeohnUHMVWFEKG6169-17-02 03:30:38 Test Item Value Reference Range Interpretation Comments U Phencyc Scr (test Negative code = U Phencyc Scr) *NA*(12/28/2012 22:30:38) [facility] CenterWrjohexWHQPYTQBC1202-88-57 03:30:38 Test Item Value Reference Range Interpretation Comments U Opiate Scr (test Positive A code = U Opiate Scr) *ABN*(12/28/2012 22:30:38) [facility] CenterCahpdwmVBLJPSHLB4049-82-13 03:30:38 Test Item Value Reference Range Interpretation Comments U Cannab Scr (test Negative code = U Cannab Scr) *NA*(12/28/2012 22:30:38) [facility] CenterLqtvyxxJXMUHSFXF2504-43-65 03:30:38 Test Item Value Reference Range Interpretation Comments U Benzodia Scr (test Negative code = U Benzodia Scr) *NA*(12/28/2012 22:30:38) [facility] CenterPctqicvSNPHUARUB9172-41-10 03:30:38 Test Item Value Reference Range Interpretation Comments U Odalys Scr (test code Negative *NA*(12/28/2012 = U Odalys Scr) 22:30:38) [facility] CenterNqfahycLTDDCFJMP5692-50-45 03:30:38 Test Item Value Reference Range Interpretation Comments U Amph Scr (test code Negative *NA*(12/28/2012 = U Amph Scr) 22:30:38) [facility] CenterGnoddvqGZEAAQIJC8726-96-46 03:30:38 Test Item Value Reference Range Interpretation Comments U Cocaine Scr (test Negative code = U Cocaine Scr) *NA*(12/28/2012 22:30:38) [facility] SouthVaskeljOXEMWIOMBL5744-17-02 03:30:38 Test Item Value Reference Range Interpretation Comments UA Ketones (test code Negative mg/dL = UA Ketones) *NA*(12/28/2012 22:30:38) [facility] SouthJeflajzFDRRSESWWA9820-27-89 03:30:38 Test Item Value Reference Range Interpretation Comments UA Bili (test code = Negative *NA*(12/28/2012 UA Bili) 22:30:38) [facility] SouthLpdgfieWVSIMFQGTB5125-41-53 03:30:38 Test Item Value Reference Range Interpretation Comments UA Nitrite (test code Negative (12/28/2012 N = UA Nitrite) 22:30:38) [facility] SouthPdiklocOEQQIJGTNL2914-73-59 03:30:38 Test Item Value Reference Range Interpretation Comments UA Urobilinogen (test code = UA 0.2 0.1-1.0 N Urobilinogen) [facility] SouthPugoneiZKVIJKIBQK0556-35-26 03:30:38 Test Item Value Reference Range Interpretation Comments UA Blood (test code = Negative (12/28/2012 N UA Blood) 22:30:38) [facility] SouthEjbrmfvQRGKZRBEWJ3562-17-67 03:30:38 Test Item Value Reference Range Interpretation Comments UA Leuk Est (test Negative (12/28/2012 N code = UA Leuk Est) 22:30:38) [facility] SouthMlwbjjfVPMWMBNESH4618-41-87 03:30:38 Test Item Value Reference Range Interpretation Comments UA pH (test code = UA pH) 7.0 1 5.0-8.0 N [facility] SouthAvgpkieGQKBFTLWJG3745-66-95 03:30:38 Test Item Value Reference Range Interpretation Comments UA Glucose (test code Negative mg/dL N = UA Glucose) (12/28/2012 22:30:38) [facility] SouthYrcnnchCDCRRRLIPB5819-83-27 03:30:38 Test Item Value Reference Range Interpretation Comments UA Spec Grav (test code = UA Spec 1.010 1 N Grav) [facility]TmwampxCYMMHCAVUI3067-51-90 03:30:38 Test Item Value Reference Range Interpretation Comments UA Protein (test code Negative mg/dL N = UA Protein) (12/28/2012 22:30:38) [facility] SouthNxjvtpvOINFUHXOQF0868-37-24 03:30:38 Test Item Value Reference Range Interpretation Comments UA Turbidity (test code = Clear (12/28/2012 N UA Turbidity) 22:30:38) [facility] SouthJtmxealQKEDRGQBRG7522-07-07 03:30:38 Test Item Value Reference Range Interpretation Comments UA Color (test code = Yellow *NA*(12/28/2012 UA Color) 22:30:38) [facility] CenterRimtvcpYHCLLUOJP9808-00-60 03:30:38 Test Item Value Reference Range Interpretation Comments UDS Note (test code = See Note 5(12/28/2012 N UDS Note) 22:30:38) [facility] CenterLvgbugzFLETILOYD9965-43-86 03:30:38 Test Item Value Reference Range Interpretation Comments U Phencyc Scr (test Negative code = U Phencyc Scr) *NA*(12/28/2012 22:30:38) [facility] CenterRsheihwJIAJQEEBY3145-98-68 03:30:38 Test Item Value Reference Range Interpretation Comments U Opiate Scr (test Positive A code = U Opiate Scr) *ABN*(12/28/2012 22:30:38) [facility] CenterQvwdqvsBYXGAGUKS4555-92-62 03:30:38 Test Item Value Reference Range Interpretation Comments U Cannab Scr (test Negative code = U Cannab Scr) *NA*(12/28/2012 22:30:38) [facility] CenterFkxsrfdCPHXIANCG4715-89-62 03:30:38 Test Item Value Reference Range Interpretation Comments U Benzodia Scr (test Negative code = U Benzodia Scr) *NA*(12/28/2012 22:30:38) [facility] CenterQldykhgWSIGWTSNE1616-11-04 03:30:38 Test Item Value Reference Range Interpretation Comments U Odalys Scr (test code Negative *NA*(12/28/2012 = U Odalys Scr) 22:30:38) [facility] CenterDuepvyfPTUXGUAVF3591-38-42 03:30:38 Test Item Value Reference Range Interpretation Comments U Amph Scr (test code Negative *NA*(12/28/2012 = U Amph Scr) 22:30:38) [facility] CenterHxlqtpsOGTMYZNGA0795-46-97 03:30:38 Test Item Value Reference Range Interpretation Comments U Cocaine Scr (test Negative code = U Cocaine Scr) *NA*(12/28/2012 22:30:38) [facility] SouthDkrtyvoUQWQXRQACQ3617-51-32 03:30:38 Test Item Value Reference Range Interpretation Comments UA Ketones (test code Negative mg/dL = UA Ketones) *NA*(12/28/2012 22:30:38) [facility] SouthGsmctatZTKWKULLPJ1064-26-86 03:30:38 Test Item Value Reference Range Interpretation Comments UA Bili (test code = Negative *NA*(12/28/2012 UA Bili) 22:30:38) [facility] SouthKqbohtzPQYSYMMFKD4077-73-13 03:30:38 Test Item Value Reference Range Interpretation Comments UA Nitrite (test code Negative (12/28/2012 N = UA Nitrite) 22:30:38) [facility] SouthUqtwshoPVORMOKQMY6785-63-17 03:30:38 Test Item Value Reference Range Interpretation Comments UA Urobilinogen (test code = UA 0.2 0.1-1.0 N Urobilinogen) [facility] SouthMnxqnauRSMSIHITCH0704-43-09 03:30:38 Test Item Value Reference Range Interpretation Comments UA Blood (test code = Negative (12/28/2012 N UA Blood) 22:30:38) [facility] SouthLhoktcuBZNIJGHVSS4490-94-26 03:30:38 Test Item Value Reference Range Interpretation Comments UA Leuk Est (test Negative (12/28/2012 N code = UA Leuk Est) 22:30:38) [facility] SouthPhhgturJRWPXGLYUM5621-12-72 03:30:38 Test Item Value Reference Range Interpretation Comments UA pH (test code = UA pH) 7.0 1 5.0-8.0 N [facility] SouthVwhfoyyVOKWAEHXKZ7609-96-76 03:30:38 Test Item Value Reference Range Interpretation Comments UA Glucose (test code Negative mg/dL N = UA Glucose) (12/28/2012 22:30:38) [facility] SouthGpkoceaKUEYFBNBAF8358-03-78 03:30:38 Test Item Value Reference Range Interpretation Comments UA Spec Grav (test code = UA Spec 1.010 1 N Grav) [facility] SouthWfgvgiiGSSDAQALRT0591-21-11 03:30:38 Test Item Value Reference Range Interpretation Comments UA Protein (test code Negative mg/dL N = UA Protein) (12/28/2012 22:30:38) [facility] SouthUhvrtxjQAUGBOXLBY6361-12-45 03:30:38 Test Item Value Reference Range Interpretation Comments UA Turbidity (test code = Clear (12/28/2012 N UA Turbidity) 22:30:38) [facility] SouthXjhkqzlRASDTSMTTX5066-71-86 03:30:38 Test Item Value Reference Range Interpretation Comments UA Color (test code = Yellow *NA*(12/28/2012 UA Color) 22:30:38) [facility] CenterWaxpakvJPARJAOCG0310-28-76 03:30:38 Test Item Value Reference Range Interpretation Comments UDS Note (test code = See Note 5(12/28/2012 N UDS Note) 22:30:38) [facility] CenterUqrsjpvLDTTUQMYO6742-14-78 03:30:38 Test Item Value Reference Range Interpretation Comments U Phencyc Scr (test Negative code = U Phencyc Scr) *NA*(12/28/2012 22:30:38) [facility] CenterArdfutbCLDTTWAGB9375-88-91 03:30:38 Test Item Value Reference Range Interpretation Comments U Opiate Scr (test Positive A code = U Opiate Scr) *ABN*(12/28/2012 22:30:38) [facility] CenterHtabkpfWQOBJBMDR5189-61-41 03:30:38 Test Item Value Reference Range Interpretation Comments U Cannab Scr (test Negative code = U Cannab Scr) *NA*(12/28/2012 22:30:38) [facility] CenterFdnmcjfZALPYGQXA0517-46-60 03:30:38 Test Item Value Reference Range Interpretation Comments U Benzodia Scr (test Negative code = U Benzodia Scr) *NA*(12/28/2012 22:30:38) [facility] CenterPneulguAIXUOABOI4465-06-35 03:30:38 Test Item Value Reference Range Interpretation Comments U Odalys Scr (test code Negative *NA*(12/28/2012 = U Odalys Scr) 22:30:38) [facility] CenterZytjdouSMBLTMBHP3804-60-21 03:30:38 Test Item Value Reference Range Interpretation Comments U Amph Scr (test code Negative *NA*(12/28/2012 = U Amph Scr) 22:30:38) [facility] CenterAzctompVWPHSCPGO1327-27-67 03:30:38 Test Item Value Reference Range Interpretation Comments U Cocaine Scr (test Negative code = U Cocaine Scr) *NA*(12/28/2012 22:30:38) [facility] SouthWumittfMCLIPGIJOY9382-86-98 03:30:38 Test Item Value Reference Range Interpretation Comments UA Ketones (test code Negative mg/dL = UA Ketones) *NA*(12/28/2012 22:30:38) [facility] SouthOpqgntrUTSZCXALDX4834-67-76 03:30:38 Test Item Value Reference Range Interpretation Comments UA Bili (test code = Negative *NA*(12/28/2012 UA Bili) 22:30:38) [facility] SouthJdcnlnlBETRQCTTOX8529-16-72 03:30:38 Test Item Value Reference Range Interpretation Comments UA Nitrite (test code Negative (12/28/2012 N = UA Nitrite) 22:30:38) [facility] SouthSrmnykwIQHVVXBGYF7612-55-39 03:30:38 Test Item Value Reference Range Interpretation Comments UA Urobilinogen (test code = UA 0.2 0.1-1.0 N Urobilinogen) [facility] SouthLetqcaaTRROSRIRMS1358-47-68 03:30:38 Test Item Value Reference Range Interpretation Comments UA Blood (test code = Negative (12/28/2012 N UA Blood) 22:30:38) [facility] SouthVmkqvntKOXWBZNVXE9615-23-37 03:30:38 Test Item Value Reference Range Interpretation Comments UA Leuk Est (test Negative (12/28/2012 N code = UA Leuk Est) 22:30:38) [facility] SouthRsfovsxKSGHVRHPGN2059-30-61 03:30:38 Test Item Value Reference Range Interpretation Comments UA pH (test code = UA pH) 7.0 1 5.0-8.0 N [facility] SouthXklfkcdQJJFCKPAHE3681-59-46 03:30:38 Test Item Value Reference Range Interpretation Comments UA Glucose (test code Negative mg/dL N = UA Glucose) (12/28/2012 22:30:38) [facility] SouthWpklrjsEEHSUCVXDW5907-55-28 03:30:38 Test Item Value Reference Range Interpretation Comments UA Spec Grav (test code = UA Spec 1.010 1 N Grav) [facility] SouthDywdbztGBSZOXGJCI7274-62-92 03:30:38 Test Item Value Reference Range Interpretation Comments UA Protein (test code Negative mg/dL N = UA Protein) (12/28/2012 22:30:38) [facility] SouthKfcnzhfSRVUJKFAIT4437-33-16 03:30:38 Test Item Value Reference Range Interpretation Comments UA Turbidity (test code = Clear (12/28/2012 N UA Turbidity) 22:30:38) [facility] SouthElrlahnWBFVRINYWD5296-71-31 03:30:38 Test Item Value Reference Range Interpretation Comments UA Color (test code = Yellow *NA*(12/28/2012 UA Color) 22:30:38) [facility] CenterAqaccaeLKRGDFDHD3413-34-07 03:30:38 Test Item Value Reference Range Interpretation Comments UDS Note (test code = See Note 5(12/28/2012 N UDS Note) 22:30:38) [facility] CenterJpfyssaUQBZYHYVI7351-12-66 03:30:38 Test Item Value Reference Range Interpretation Comments U Phencyc Scr (test Negative code = U Phencyc Scr) *NA*(12/28/2012 22:30:38) [facility] CenterUejymniFXIGFWVLE1705-40-44 03:30:38 Test Item Value Reference Range Interpretation Comments U Opiate Scr (test Positive A code = U Opiate Scr) *ABN*(12/28/2012 22:30:38) [facility] CenterDnadqjbLYHRTQVWC8634-29-72 03:30:38 Test Item Value Reference Range Interpretation Comments U Cannab Scr (test Negative code = U Cannab Scr) *NA*(12/28/2012 22:30:38) [facility] CenterFyexctnTLKIDHHNQ0762-65-64 03:30:38 Test Item Value Reference Range Interpretation Comments U Benzodia Scr (test Negative code = U Benzodia Scr) *NA*(12/28/2012 22:30:38) [facility] CenterPtwjalaBOATIRKWU8875-14-85 03:30:38 Test Item Value Reference Range Interpretation Comments U Odalys Scr (test code Negative *NA*(12/28/2012 = U Odalys Scr) 22:30:38) [facility] CenterSmqglyzBBRGMUEIY0280-39-76 03:30:38 Test Item Value Reference Range Interpretation Comments U Amph Scr (test code Negative *NA*(12/28/2012 = U Amph Scr) 22:30:38) [facility] CenterPtnlcfbCVWWHDTPZ2856-85-16 03:30:38 Test Item Value Reference Range Interpretation Comments U Cocaine Scr (test Negative code = U Cocaine Scr) *NA*(12/28/2012 22:30:38) [facility] SouthVzmclscFCOUPAGWJU2000-59-35 03:30:38 Test Item Value Reference Range Interpretation Comments UA Ketones (test code Negative mg/dL = UA Ketones) *NA*(12/28/2012 22:30:38) [facility] CenterCyhzmrjJDTBCPXDBQ0827-01-13 03:30:38 Test Item Value Reference Range Interpretation Comments UA Bili (test code = Negative *NA*(12/28/2012 UA Bili) 22:30:38) [facility] SouthBdlpmwmCWGIBFNCGJ5484-46-72 03:30:38 Test Item Value Reference Range Interpretation Comments UA Nitrite (test code Negative (12/28/2012 N = UA Nitrite) 22:30:38) [facility] SouthBrgajkoBYDPKUCPAE3935-19-88 03:30:38 Test Item Value Reference Range Interpretation Comments UA Urobilinogen (test code = UA 0.2 0.1-1.0 N Urobilinogen) [facility] SouthZrlrfhrIJTLEZIGIC4000-31-81 03:30:38 Test Item Value Reference Range Interpretation Comments UA Blood (test code = Negative (12/28/2012 N UA Blood) 22:30:38) [facility] SouthYeoykhuYOAPZOYVLS2867-56-38 03:30:38 Test Item Value Reference Range Interpretation Comments UA Leuk Est (test Negative (12/28/2012 N code = UA Leuk Est) 22:30:38) [facility] SouthKzoxtbzQYVAKYMFGG2455-76-44 03:30:38 Test Item Value Reference Range Interpretation Comments UA pH (test code = UA pH) 7.0 1 5.0-8.0 N [facility] SouthOeoioauXWWDVQPEPK9454-46-47 03:30:38 Test Item Value Reference Range Interpretation Comments UA Glucose (test code Negative mg/dL N = UA Glucose) (12/28/2012 22:30:38) [facility] SouthJiuixzrDRUHZHCQUY9187-59-86 03:30:38 Test Item Value Reference Range Interpretation Comments UA Spec Grav (test code = UA Spec 1.010 1 N Grav) [facility] SouthVssomjfRQJYSCIIHU7633-83-33 03:30:38 Test Item Value Reference Range Interpretation Comments UA Protein (test code Negative mg/dL N = UA Protein) (12/28/2012 22:30:38) [facility] SouthQevsshtAPASBAINSS6368-40-77 03:30:38 Test Item Value Reference Range Interpretation Comments UA Turbidity (test code = Clear (12/28/2012 N UA Turbidity) 22:30:38) [facility] SouthJkftjwvDHMEFHAISM7806-99-60 03:30:38 Test Item Value Reference Range Interpretation Comments UA Color (test code = Yellow *NA*(12/28/2012 UA Color) 22:30:38) [facility] CenterMutdxfnQEFONRIYK1438-86-68 03:30:38 Test Item Value Reference Range Interpretation Comments UDS Note (test code = See Note 5(12/28/2012 N UDS Note) 22:30:38) [facility] CenterEvuvpjzXCDZPTLMQ6778-74-24 03:30:38 Test Item Value Reference Range Interpretation Comments U Phencyc Scr (test Negative code = U Phencyc Scr) *NA*(12/28/2012 22:30:38) [facility] CenterWsmzocmJRYBPMKSQ3410-81-42 03:30:38 Test Item Value Reference Range Interpretation Comments U Opiate Scr (test Positive A code = U Opiate Scr) *ABN*(12/28/2012 22:30:38) [facility] CenterIrtfgraXVRUQCVDF0000-25-07 03:30:38 Test Item Value Reference Range Interpretation Comments U Cannab Scr (test Negative code = U Cannab Scr) *NA*(12/28/2012 22:30:38) [facility] CenterFxvomrbMZYCRTRLR4746-82-29 03:30:38 Test Item Value Reference Range Interpretation Comments U Benzodia Scr (test Negative code = U Benzodia Scr) *NA*(12/28/2012 22:30:38) [facility] CenterBpmicziHMTUADCGA0268-33-75 03:30:38 Test Item Value Reference Range Interpretation Comments U Odalys Scr (test code Negative *NA*(12/28/2012 = U Odalys Scr) 22:30:38) [facility] CenterZaybbhpLZYMOCQZG7071-77-83 03:30:38 Test Item Value Reference Range Interpretation Comments U Amph Scr (test code Negative *NA*(12/28/2012 = U Amph Scr) 22:30:38) [facility] CenterPtkkremDIQDAZFHC1053-58-40 03:30:38 Test Item Value Reference Range Interpretation Comments U Cocaine Scr (test Negative code = U Cocaine Scr) *NA*(12/28/2012 22:30:38) [facility] SouthLstwkwmVCIQWIIWAA8464-19-93 03:30:38 Test Item Value Reference Range Interpretation Comments UA Ketones (test code Negative mg/dL = UA Ketones) *NA*(12/28/2012 22:30:38) [facility] CenterRhcsaxqSQYIXNYKDG7643-98-81 03:30:38 Test Item Value Reference Range Interpretation Comments UA Bili (test code = Negative *NA*(12/28/2012 UA Bili) 22:30:38) [facility] CenterNqvtjhdIHJUOWKSNT8317-12-32 03:30:38 Test Item Value Reference Range Interpretation Comments UA Nitrite (test code Negative (12/28/2012 N = UA Nitrite) 22:30:38) [facility] SouthHopevqcZYYEGCNVXE4687-12-01 03:30:38 Test Item Value Reference Range Interpretation Comments UA Urobilinogen (test code = UA 0.2 0.1-1.0 N Urobilinogen) [facility] CenterAljrhhpTKVHJTCTYP5272-53-53 03:30:38 Test Item Value Reference Range Interpretation Comments UA Blood (test code = Negative (12/28/2012 N UA Blood) 22:30:38) [facility] SouthWmyakirXJXOTEBLVN2440-01-88 03:30:38 Test Item Value Reference Range Interpretation Comments UA Leuk Est (test Negative (12/28/2012 N code = UA Leuk Est) 22:30:38) [facility] SouthLkfnopqXIWIEZCEDD8037-41-43 03:30:38 Test Item Value Reference Range Interpretation Comments UA pH (test code = UA pH) 7.0 1 5.0-8.0 N [facility] CenterRrvgnbjYYXOXKRSPY0908-91-24 03:30:38 Test Item Value Reference Range Interpretation Comments UA Glucose (test code Negative mg/dL N = UA Glucose) (12/28/2012 22:30:38) [facility] SouthAiylscuSXJAQRYGGK8834-36-45 03:30:38 Test Item Value Reference Range Interpretation Comments UA Spec Grav (test code = UA Spec 1.010 1 N Grav) [facility] SouthCmisajzEUBBASIFWS1298-24-74 03:30:38 Test Item Value Reference Range Interpretation Comments UA Protein (test code Negative mg/dL N = UA Protein) (12/28/2012 22:30:38) [facility] SouthFpnfeowAYDQCZVLCL8572-35-74 03:30:38 Test Item Value Reference Range Interpretation Comments UA Turbidity (test code = Clear (12/28/2012 N UA Turbidity) 22:30:38) [facility] SouthCjskktlOCGBAMUKXN9153-59-54 03:30:38 Test Item Value Reference Range Interpretation Comments UA Color (test code = Yellow *NA*(12/28/2012 UA Color) 22:30:38) [facility] SouthOtdmujlSDHWGRBIKU8432-28-20 03:30:21 Test Item Value Reference Range Interpretation Comments UA Bacteria (test code = None Seen (12/28/2012 N UA Bacteria) 22:30:21) [facility]BitfjyjCONKUEEXEE1880-24-14 03:30:21 Test Item Value Reference Range Interpretation Comments Micro? (test code = Performed (12/28/2012 N Micro?) 22:30:21) [facility] HospitalWtcvaykTFGUTUDHBZ6253-95-95 03:30:21 Test Item Value Reference Range Interpretation Comments UA Sq Epi (test code = None Seen (12/28/2012 N UA Sq Epi) 22:30:21) [facility] HospitalPxeqqflQENKSRPLIH8439-11-64 03:30:21 Test Item Value Reference Range Interpretation Comments UA WBC (test code = UA 0-2 /HPF (12/28/2012 N WBC) 22:30:21) [facility] HospitalEtanpaqCEXHHPLKSX8947-40-25 03:30:21 Test Item Value Reference Range Interpretation Comments UA RBC (test None Seen See_Comment N [Automated mes olga] code = UA RBC) (12/28/2012 The system [facility] 22:30:21) generated this result transmitted ref erence range: <=2. The reference range was not used to int erpret this result as normal/abnormal . [facility] HospitalRwmesxvGIZICLDAGT3747-22-41 03:30:21 Test Item Value Reference Range Interpretation Comments UA Bacteria (test code = None Seen (12/28/2012 N UA Bacteria) 22:30:21) [facility] HospitalPrjgpacMXSAKBVYTE0726-05-73 03:30:21 Test Item Value Reference Range Interpretation Comments Micro? (test code = Performed (12/28/2012 N Micro?) 22:30:21) [facility] HospitalKwynyfxZGMEWHWMLD9454-28-11 03:30:21 Test Item Value Reference Range Interpretation Comments UA Sq Epi (test code = None Seen (12/28/2012 N UA Sq Epi) 22:30:21) [facility] HospitalZwpdeolAKHHWHWAHP4169-24-50 03:30:21 Test Item Value Reference Range Interpretation Comments UA WBC (test code = UA 0-2 /HPF (12/28/2012 N WBC) 22:30:21) [facility] HospitalMzgbqhmPJWCTICHQZ5501-31-57 03:30:21 Test Item Value Reference Range Interpretation Comments UA RBC (test None Seen See_Comment N [Automated mes olga] code = UA RBC) (12/28/2012 The system [facility] 22:30:21) generated this result transmitted ref erence range: <=2. The reference range was not used to int erpret this result as normal/abnormal . [facility] HospitalXrfhataSIKDBNARVB9589-72-66 03:30:21 Test Item Value Reference Range Interpretation Comments UA Bacteria (test code = None Seen (12/28/2012 N UA Bacteria) 22:30:21) [facility] HospitalXdtmcjkXZWXDRBSZF0728-47-11 03:30:21 Test Item Value Reference Range Interpretation Comments Micro? (test code = Performed (12/28/2012 N Micro?) 22:30:21) [facility]VjwfceeXFCZXRYTHJ6742-17-97 03:30:21 Test Item Value Reference Range Interpretation Comments UA Sq Epi (test code = None Seen (12/28/2012 N UA Sq Epi) 22:30:21) [facility] HospitalWikkcgmYSVWVHIZPJ4135-48-53 03:30:21 Test Item Value Reference Range Interpretation Comments UA WBC (test code = UA 0-2 /HPF (12/28/2012 N WBC) 22:30:21) [facility] HospitalZlfsftkQLGJBOIAJO7515-38-66 03:30:21 Test Item Value Reference Range Interpretation Comments UA RBC (test None Seen See_Comment N [Automated mes olga] code = UA RBC) (12/28/2012 The system [facility] 22:30:21) generated this result transmitted ref erence range: <=2. The reference range was not used to int erpret this result as normal/abnormal . [facility] HospitalKxwragiBBLSOAVLXE0320-68-75 03:30:21 Test Item Value Reference Range Interpretation Comments UA Bacteria (test code = None Seen (12/28/2012 N UA Bacteria) 22:30:21) [facility] HospitalNmybduqQVMUQYPDNN6315-10-52 03:30:21 Test Item Value Reference Range Interpretation Comments Micro? (test code = Performed (12/28/2012 N Micro?) 22:30:21) [facility] HospitalYrzwtmxPZBOKOXBPT3757-33-23 03:30:21 Test Item Value Reference Range Interpretation Comments UA Sq Epi (test code = None Seen (12/28/2012 N UA Sq Epi) 22:30:21) [facility] HospitalSegiubuVCZDJRTNCV4576-37-77 03:30:21 Test Item Value Reference Range Interpretation Comments UA WBC (test code = UA 0-2 /HPF (12/28/2012 N WBC) 22:30:21) [facility] CenterXnvscykGAZYBHVVPE7635-66-39 03:30:21 Test Item Value Reference Range Interpretation Comments UA RBC (test None Seen See_Comment N [Automated mes olga] code = UA RBC) (12/28/2012 The system [facility] 22:30:21) generated this result transmitted ref erence range: <=2. The reference range was not used to int erpret this result as normal/abnormal . [facility] CenterLqfjvknGRERZGZJDU5785-31-15 03:30:21 Test Item Value Reference Range Interpretation Comments UA Bacteria (test code = None Seen (12/28/2012 N UA Bacteria) 22:30:21) [facility] CenterIcgbvzfYLLUAGACLS9513-36-52 03:30:21 Test Item Value Reference Range Interpretation Comments Micro? (test code = Performed (12/28/2012 N Micro?) 22:30:21) [facility] CenterCtootdvOCIVUHGURA2932-88-60 03:30:21 Test Item Value Reference Range Interpretation Comments UA Sq Epi (test code = None Seen (12/28/2012 N UA Sq Epi) 22:30:21) [facility] CenterWvcfsscXCBAGJSRCT8556-14-65 03:30:21 Test Item Value Reference Range Interpretation Comments UA WBC (test code = UA 0-2 /HPF (12/28/2012 N WBC) 22:30:21) [facility] CenterGlygqvzKTKSSBKUGV8084-93-00 03:30:21 Test Item Value Reference Range Interpretation Comments UA RBC (test None Seen See_Comment N [Automated mes olga] code = UA RBC) (12/28/2012 The system ich 22:30:21) generated this result transmitted ref erence range: <=2. The reference range was not used to int erpret this result as normal/abnormal . [facility] CenterVtrksuxXVGXHANDBG6479-28-35 03:30:21 Test Item Value Reference Range Interpretation Comments UA Bacteria (test code = None Seen (12/28/2012 N UA Bacteria) 22:30:21) [facility] CenterBvmpwvpAFRLVXWDZZ0540-49-85 03:30:21 Test Item Value Reference Range Interpretation Comments Micro? (test code = Performed (12/28/2012 N Micro?) 22:30:21) [facility] HospitalGtqwwcxMNZUGYIWZV7162-72-78 03:30:21 Test Item Value Reference Range Interpretation Comments UA Sq Epi (test code = None Seen (12/28/2012 N UA Sq Epi) 22:30:21) [facility] HospitalTmippucCWHZIDRZUR2479-89-46 03:30:21 Test Item Value Reference Range Interpretation Comments UA WBC (test code = UA 0-2 /HPF (12/28/2012 N WBC) 22:30:21) [facility] HospitalKytwdyxYVYDRREMRJ0378-91-18 03:30:21 Test Item Value Reference Range Interpretation Comments UA RBC (test None Seen See_Comment N [Automated mes olga] code = UA RBC) (12/28/2012 The system ich 22:30:21) generated this result transmitted ref erence range: <=2. The reference range was not used to int erpret this result as normal/abnormal . [facility] HospitalNqqqqnnVRUMNTYLCX5112-08-52 03:30:21 Test Item Value Reference Range Interpretation Comments UA Bacteria (test code = None Seen (12/28/2012 N UA Bacteria) 22:30:21) [facility]CrajgxyYPLHYEDASN2513-79-91 03:30:21 Test Item Value Reference Range Interpretation Comments Micro? (test code = Performed (12/28/2012 N Micro?) 22:30:21) [facility]XjkkzmwFZHMEEXADT8700-20-46 03:30:21 Test Item Value Reference Range Interpretation Comments UA Sq Epi (test code = None Seen (12/28/2012 N UA Sq Epi) 22:30:21) [facility]VadhoxpVMPJVOEXSU2790-62-33 03:30:21 Test Item Value Reference Range Interpretation Comments UA WBC (test code = UA 0-2 /HPF (12/28/2012 N WBC) 22:30:21) [facility] HospitalNobxdihNXOMKIRLEQ6195-68-67 03:30:21 Test Item Value Reference Range Interpretation Comments UA RBC (test None Seen See_Comment N [Automated mes olga] code = UA RBC) (12/28/2012 The system ich 22:30:21) generated this result transmitted ref erence range: <=2. The reference range was not used to int erpret this result as normal/abnormal . [facility] DsaigjtIRAGUSDOPK8304-17-67 03:30:21 Test Item Value Reference Range Interpretation Comments UA Bacteria (test code = None Seen (12/28/2012 N UA Bacteria) 22:30:21) [facility] TeeicasPBVKVFTMIC5346-92-39 03:30:21 Test Item Value Reference Range Interpretation Comments Micro? (test code = Performed (12/28/2012 N Micro?) 22:30:21) [facility] BvczakpPJCECLOVZY3517-94-68 03:30:21 Test Item Value Reference Range Interpretation Comments UA Sq Epi (test code = None Seen (12/28/2012 N UA Sq Epi) 22:30:21) [facility] NdqrbpmVTBZADWRTX4360-81-01 03:30:21 Test Item Value Reference Range Interpretation Comments UA WBC (test code = UA 0-2 /HPF (12/28/2012 N WBC) 22:30:21) [facility] OrkjfbcUOPVAPIVPA9610-63-90 03:30:21 Test Item Value Reference Range Interpretation Comments UA RBC (test None Seen See_Comment N [Automated mes olga] code = UA RBC) (12/28/2012 The system ich 22:30:21) generated this result transmitted ref erence range: <=2. The reference range was not used to int erpret this result as normal/abnormal . [email or web address] [id number] 02:00:00 Test Item Value Reference Range Interpretation Comments ABO/Rh (test code = ABO/Rh) B NEG [email or web address] VATYKBF2480-25-01 02:00:00 Test Item Value Reference Range Interpretation Comments Antibody Scrn (test Negative (12/28/2012 N code = Antibody Scrn) 21:00:00) [email or web address] [id number] 02:00:00 Test Item Value Reference Range Interpretation Comments ABO/Rh (test code = ABO/Rh) B NEG [email or web address] PNBKTPJ3594-26-06 02:00:00 Test Item Value Reference Range Interpretation Comments Antibody Scrn (test Negative (12/28/2012 N code = Antibody Scrn) 21:00:00) [email or web address] [id number] 02:00:00 Test Item Value Reference Range Interpretation Comments ABO/Rh (test code = ABO/Rh) B NEG [employer] [facility] HQEMMFD8907-28-12 02:00:00 Test Item Value Reference Range Interpretation Comments Antibody Scrn (test Negative (12/28/2012 N code = Antibody Scrn) 21:00:00) [employer] [facility] IRGMAJF8926-24-96 02:00:00 Test Item Value Reference Range Interpretation Comments ABO/Rh (test code = ABO/Rh) B NEG [facility] [id number] 02:00:00 Test Item Value Reference Range Interpretation Comments Antibody Scrn (test Negative (12/28/2012 N code = Antibody Scrn) 21:00:00) [employer] [facility] [id number] 02:00:00 Test Item Value Reference Range Interpretation Comments ABO/Rh (test code = ABO/Rh) B NEG [email or web address] [id number] 02:00:00 Test Item Value Reference Range Interpretation Comments Antibody Scrn (test Negative (12/28/2012 N code = Antibody Scrn) 21:00:00) [email or web address] [id number] 02:00:00 Test Item Value Reference Range Interpretation Comments ABO/Rh (test code = ABO/Rh) B NEG [email or web address] [id number] 02:00:00 Test Item Value Reference Range Interpretation Comments Antibody Scrn (test Negative (12/28/2012 N code = Antibody Scrn) 21:00:00) [email or web address] [id number] 02:00:00 Test Item Value Reference Range Interpretation Comments ABO/Rh (test code = ABO/Rh) B NEG [employer] [facility] [id number] 02:00:00 Test Item Value Reference Range Interpretation Comments Antibody Scrn (test Negative (12/28/2012 N code = Antibody Scrn) 21:00:00) [email or web address] [id number] 02:00:00 Test Item Value Reference Range Interpretation Comments ABO/Rh (test code = ABO/Rh) B NEG [email or web address] [id number] 02:00:00 Test Item Value Reference Range Interpretation Comments Antibody Scrn (test Negative (12/28/2012 N code = Antibody Scrn) 21:00:00) [facility] CenterWbtjiuoCKAXDTCAS7481-32-06 01:56:00 Test Item Value Reference Range Interpretation Comments O2 Sat Frankie (test code = O2 Sat Frankie) 84.6 40.0-70.0 H [facility] CenterUaheujmAEPAKHVGH1052-82-67 01:56:00 Test Item Value Reference Range Interpretation Comments Temp Frankie (test code = Temp Frankie) 37.0 [facility] CenterPobkvbaYSOQXBCEY1268-59-21 01:56:00 Test Item Value Reference Range Interpretation Comments BE Frankie (test code = -4 See_Comment L [Automa abdelrahman message] The BE Frankie) system which ge nerated this result transmit abdelrahman reference range : <=2. The reference range was not used to interpr et this result as gurpreet l/abnormal. [facility] CenterViirzbmHGQKMNTGB8870-96-10 01:56:00 Test Item Value Reference Range Interpretation Comments HCO3 Frankie (test code = HCO3 Frankie) 20 22-26 L [facility] CenterJmpekdsSQHBMNUHT0747-34-19 01:56:00 Test Item Value Reference Range Interpretation Comments pO2 Frankie (test code = pO2 Frankie) 49 20-49 N [facility] CenterTehnxryUXBQQOMGN8908-27-13 01:56:00 Test Item Value Reference Range Interpretation Comments pH Frankie (test code = pH Frankie) 7.41 7.28-7.42 N [facility] CenterBppsrooQFVSJLYPL2305-79-27 01:56:00 Test Item Value Reference Range Interpretation Comments pCO2 Frankie (test code = pCO2 Frankie) 31 38-52 L [facility] CenterTyufnimZBDAZQSNC4967-85-97 01:56:00 Test Item Value Reference Range Interpretation Comments Lactic Acid Lvl (test code = Lactic 4.4 0.5-2.2 H Acid Lvl) [facility] CenterDpfwgxnIAQJDMHWF7204-65-49 01:56:00 Test Item Value Reference Range Interpretation Comments Ethanol Lvl (test code = Ethanol Lvl) 79 [facility] CenterXvargjzKFECRAUDN3676-84-87 01:56:00 Test Item Value Reference Range Interpretation Comments Etoh (%) (test code = Etoh (%)) 0.079 [facility] CenterAphelfiCZPIJEDZK2349-90-84 01:56:00 Test Item Value Reference Range Interpretation Comments eGFR (test code = eGFR) 93 [facility] CenterOaachryRQXDEJYXQ7825-39-24 01:56:00 Test Item Value Reference Range Interpretation Comments BUN (test code = BUN) 6 7-22 L [facility] CenterYxnmrbnXRSQONBSP2014-09-93 01:56:00 Test Item Value Reference Range Interpretation Comments Creatinine Lvl (test code = Creatinine 1.1 0.5-1.4 N Lvl) [facility] CenterAtxswrvUVQSTACCW9682-83-30 01:56:00 Test Item Value Reference Range Interpretation Comments Glucose Lvl (test code = Glucose Lvl) 124 70-99 H [facility] CenterIcigxccNMTLELJCO7277-95-57 01:56:00 Test Item Value Reference Range Interpretation Comments Sodium Lvl (test code = Sodium Lvl) 140 135-145 N [facility] CenterEvlyxrmYUOFFTDFA5952-90-69 01:56:00 Test Item Value Reference Range Interpretation Comments Chloride Lvl (test code = Chloride Lvl) 103 95-109 N [facility] CenterCdsmlfdAGISKTGDD2363-14-61 01:56:00 Test Item Value Reference Range Interpretation Comments CO2 (test code = CO2) 21 24-32 L [facility] CenterIjmemabUJKWTBYTH6978-96-36 01:56:00 Test Item Value Reference Range Interpretation Comments Potassium Lvl (test code = Potassium 3.1 3.5-5.1 L Lvl) [facility] CenterLimqzklQNGLHJIXC3000-38-69 01:56:00 Test Item Value Reference Range Interpretation Comments Calcium Lvl (test code = Calcium Lvl) 8.6 8.5-10.5 N [facility] CenterLomppekVYFTJANSW3412-87-38 01:56:00 Test Item Value Reference Range Interpretation Comments AGAP (test code = AGAP) 19.1 10.0-20.0 N [facility] HospitalZzbhiufYILZSNVITJ8117-29-62 01:56:00 Test Item Value Reference Range Interpretation Comments Estimated % Lysis (test 1.3 See_Comment N [Au tomated message] The code = Estimated % system wh ich generated Lysis) this result tra nsmitted reference range : <=7.5. The reference r annemarie was not used to int erpret this result as normal/abnormal . [facility] HospitalOzruqtiRMHUVUUCQP4310-51-26 01:56:00 Test Item Value Reference Range Interpretation Comments K-time (test code = K-time) 2.2 min 0.6-2.3 N [facility] HospitalRfhrshvXNVJFPPMPA6404-74-70 01:56:00 Test Item Value Reference Range Interpretation Comments Angle (test code = Angle) 64 degrees 64-80 N [facility] HospitalQcncpipDOEWOYIVWZ8158-87-21 01:56:00 Test Item Value Reference Range Interpretation Comments Max Amp (test code = Max Amp) 58 mm 52-71 N [facility] HospitalJdoujrcBWZFHSVWCB2923-11-36 01:56:00 Test Item Value Reference Range Interpretation Comments R-time (test code = R-time) 0.8 min 0.4-0.7 H [facility] HospitalXpbfpzsDEMYRJVUBM1142-97-68 01:56:00 Test Item Value Reference Range Interpretation Comments Split Point (test code = Split Point) 0.6 min [facility] HospitalRpwakhqYZXYMQIPWV9769-48-91 01:56:00 Test Item Value Reference Range Interpretation Comments Rapid TEG Sample Type Citrated Whole Blood (test code = Rapid TEG Sample Type) [facility] HospitalSitcsybAYTKCJHIQM4275-26-22 01:56:00 Test Item Value Reference Range Interpretation Comments ACT (TEG) (test code = ACT (TEG)) 121 s 86-118 H [facility] HospitalVwuoheiJRDTJAOTPF0774-92-00 01:56:00 Test Item Value Reference Range Interpretation Comments G-value (test code = G-value) 6.9 5.0-11.6 N [facility] HospitalIrpmkdgDKIWORBYPS9722-03-96 01:56:00 Test Item Value Reference Range Interpretation Comments Hgb (test code = Hgb) 14.8 14.0-18.0 N [facility] HospitalLyikeebGQXVQGKFQY0263-41-15 01:56:00 Test Item Value Reference Range Interpretation Comments RBC (test code = RBC) 5.05 4.70-6.10 N [facility] HospitalYhbhnfnMJKHYQBKNM7195-92-68 01:56:00 Test Item Value Reference Range Interpretation Comments Hct (test code = Hct) 44.5 42.0-54.0 N [facility] HospitalBhzxklxJGVQNWGBCB6387-09-48 01:56:00 Test Item Value Reference Range Interpretation Comments WBC (test code = WBC) 11.8 3.7-10.4 H [facility] HospitalWzivuaaMCIQGJMWHE0575-46-51 01:56:00 Test Item Value Reference Range Interpretation Comments MPV (test code = MPV) 9.2 7.4-10.4 N [facility] HospitalJugeinwYELEBUILJP8978-95-78 01:56:00 Test Item Value Reference Range Interpretation Comments MCHC (test code = MCHC) 33.2 32.0-36.0 N [place] 786993-08-31 01:56:00 Test Item Value Reference Range Interpretation Comments MCV (test code = MCV) 88.1 80.0-94.0 N [facility] HospitalCaizeosEJKZRKVEWA7876-93-04 01:56:00 Test Item Value Reference Range Interpretation Comments MCH (test code = MCH) 29.3 pg 27.0-31.0 N [facility] HospitalMiehvvuAETEDBJRQJ4081-15-74 01:56:00 Test Item Value Reference Range Interpretation Comments Platelet (test code = Platelet) 175 133-450 N [facility] HospitalRgzzsidVLVCFACPAJ3563-06-81 01:56:00 Test Item Value Reference Range Interpretation Comments RDW (test code = RDW) 12.4 11.5-14.5 N [facility] HospitalIhiavjfMCSJULHQVA6239-85-69 01:56:00 Test Item Value Reference Range Interpretation Comments Lymphocytes (test code = Lymphocytes) 14.0 20.0-40.0 L [facility] HospitalGtdunnjKNSDENMTLR5317-23-67 01:56:00 Test Item Value Reference Range Interpretation Comments RBC Morph (test code = Normal (12/28/2012 N RBC Morph) 20:56:00) [facility] HospitalXkfjmgxEPMBKEWAGN1707-92-58 01:56:00 Test Item Value Reference Range Interpretation Comments Bands (test code = 6.0 See_Comment N [Automat ed message] The Bands) system which ge nerated this result transmit abdelrahman reference range : <=11.0. The reference r annemarie was not used to interpr et this result as gurpreet l/abnormal. [facility] HospitalWshvfaaYJLOUXBHNE6540-67-81 01:56:00 Test Item Value Reference Range Interpretation Comments Segs (test code = Segs) 72.0 45.0-75.0 N [facility] HospitalZbpnezfPGOXMKUIZX9877-50-91 01:56:00 Test Item Value Reference Range Interpretation Comments Monocytes # (test code 0.9 See_Comment H [Aut omated message] The = Monocytes #) system which generated this result tra nsmitted reference range : <=0.8. The reference r annemarie was not used to int erpret this result as normal/abnormal . [facility] HospitalBdklhtaSRVGQNVLTG7541-43-19 01:56:00 Test Item Value Reference Range Interpretation Comments Lymphocytes # (test code = Lymphocytes 1.7 1.0-5.5 N #) [place] 786993-08-31 01:56:00 Test Item Value Reference Range Interpretation Comments Segs-Bands # (test code = Segs-Bands #) 9.2 1.5-8.1 H [facility] HospitalTdnawqsGUYJNCYOII8105-29-19 01:56:00 Test Item Value Reference Range Interpretation Comments Monocytes (test code = Monocytes) 8.0 2.0-12.0 N [facility] HospitalQdfjcacPNFUHLNDYF5043-95-53 01:56:00 Test Item Value Reference Range Interpretation Comments Atypical Lymphs (test code = Atypical 0.0 N Lymphs) [facility] HospitalJcvqwiuNRWEZQFYYZ6898-38-79 01:56:00 Test Item Value Reference Range Interpretation Comments Plt Morph (test code = Normal (12/28/2012 N Plt Morph) 20:56:00) [facility] CenterMukhizxIWESUIJDM1479-61-37 01:56:00 Test Item Value Reference Range Interpretation Comments O2 Sat Frankie (test code = O2 Sat Frankie) 84.6 40.0-70.0 H [facility] CenterQeouibsSOGKAHHLL4112-01-64 01:56:00 Test Item Value Reference Range Interpretation Comments Temp Frankie (test code = Temp Frankie) 37.0 [facility] CenterMktwkrmBWEJXVWJY9958-00-29 01:56:00 Test Item Value Reference Range Interpretation Comments BE Frankie (test code = -4 See_Comment L [Automa abdelrahman message] The BE Frankie) system which ge nerated this result transmit abdelrahman reference range : <=2. The reference range was not used to interpr et this result as gurpreet l/abnormal. [facility] CenterDbfcqouNMQZWLJJL7244-37-14 01:56:00 Test Item Value Reference Range Interpretation Comments HCO3 Frankie (test code = HCO3 Frankie) 20 22-26 L [facility] CenterCxnfutfCFMSMAJUJ6969-57-08 01:56:00 Test Item Value Reference Range Interpretation Comments pO2 Frankie (test code = pO2 Frankie) 49 20-49 N [facility] CenterDbvymneVSIDLJLFI4131-07-41 01:56:00 Test Item Value Reference Range Interpretation Comments pH Frankie (test code = pH Frankie) 7.41 7.28-7.42 N [facility] CenterSokqarlJZIYXFKOL1337-81-36 01:56:00 Test Item Value Reference Range Interpretation Comments pCO2 Frankie (test code = pCO2 Frankie) 31 38-52 L [facility] CenterZbvurnmOEBWUCAPY0991-08-31 01:56:00 Test Item Value Reference Range Interpretation Comments Lactic Acid Lvl (test code = Lactic 4.4 0.5-2.2 H Acid Lvl) [facility] CenterNlwsqsuXYCKSMSRW2681-11-28 01:56:00 Test Item Value Reference Range Interpretation Comments Ethanol Lvl (test code = Ethanol Lvl) 79 [facility] CenterAvbxbbkYTNNPRWAV1783-35-69 01:56:00 Test Item Value Reference Range Interpretation Comments Etoh (%) (test code = Etoh (%)) 0.079 [facility] CenterSbobcynLQERKPNIN0087-10-72 01:56:00 Test Item Value Reference Range Interpretation Comments eGFR (test code = eGFR) 93 [facility] CenterPurvnidVMYQCLKHJ6515-15-64 01:56:00 Test Item Value Reference Range Interpretation Comments BUN (test code = BUN) 6 7-22 L [facility] CenterVdzdbizSAXQJBGHU0156-08-78 01:56:00 Test Item Value Reference Range Interpretation Comments Creatinine Lvl (test code = Creatinine 1.1 0.5-1.4 N Lvl) [facility] CenterAsjnxpzQCUDDYFPA8339-08-39 01:56:00 Test Item Value Reference Range Interpretation Comments Glucose Lvl (test code = Glucose Lvl) 124 70-99 H [facility] CenterYtgwbjnBEDLUHTLO4926-85-13 01:56:00 Test Item Value Reference Range Interpretation Comments Sodium Lvl (test code = Sodium Lvl) 140 135-145 N [facility] CenterVsfleirHNZBJWUQI8900-86-32 01:56:00 Test Item Value Reference Range Interpretation Comments Chloride Lvl (test code = Chloride Lvl) 103 95-109 N [facility] CenterOtxuknlIWDBHNBIS1521-99-70 01:56:00 Test Item Value Reference Range Interpretation Comments CO2 (test code = CO2) 21 24-32 L [facility] CenterEfsmlvtYVAGYQEQS0979-86-79 01:56:00 Test Item Value Reference Range Interpretation Comments Potassium Lvl (test code = Potassium 3.1 3.5-5.1 L Lvl) [facility] CenterGgkgwvmWBUJZBAEY6378-60-49 01:56:00 Test Item Value Reference Range Interpretation Comments Calcium Lvl (test code = Calcium Lvl) 8.6 8.5-10.5 N [facility] CenterNfibsrpKYWZUEVKV0812-91-39 01:56:00 Test Item Value Reference Range Interpretation Comments AGAP (test code = AGAP) 19.1 10.0-20.0 N [facility] HospitalQjxmwejMUYCMNYUZW7969-95-17 01:56:00 Test Item Value Reference Range Interpretation Comments Estimated % Lysis (test 1.3 See_Comment N [Au tomated message] The code = Estimated % system wh ich generated Lysis) this result tra nsmitted reference range : <=7.5. The reference r annemarie was not used to int erpret this result as normal/abnormal . [facility] HospitalLsxnjzxYFRMQLKSIW8854-09-45 01:56:00 Test Item Value Reference Range Interpretation Comments K-time (test code = K-time) 2.2 min 0.6-2.3 N [facility] HospitalNgraupaMJSMASMBPO5863-14-25 01:56:00 Test Item Value Reference Range Interpretation Comments Angle (test code = Angle) 64 degrees 64-80 N [facility] HospitalAbhpeqoFROSJBVKBT1555-54-12 01:56:00 Test Item Value Reference Range Interpretation Comments Max Amp (test code = Max Amp) 58 mm 52-71 N [facility] HospitalHhdsomxNLPUDGSYTU3387-48-98 01:56:00 Test Item Value Reference Range Interpretation Comments R-time (test code = R-time) 0.8 min 0.4-0.7 H [facility] HospitalRexsjzuHETSSSLBJE8489-14-79 01:56:00 Test Item Value Reference Range Interpretation Comments Split Point (test code = Split Point) 0.6 min [facility] HospitalHllwreuHVCZBSEVFP1453-62-10 01:56:00 Test Item Value Reference Range Interpretation Comments Rapid TEG Sample Type Citrated Whole Blood (test code = Rapid TEG Sample Type) [facility] HospitalFcstswdILGQSVDDNG5626-03-10 01:56:00 Test Item Value Reference Range Interpretation Comments ACT (TEG) (test code = ACT (TEG)) 121 s 86-118 H [facility] HospitalNchvtcnZJTYHKJHYC4940-65-51 01:56:00 Test Item Value Reference Range Interpretation Comments G-value (test code = G-value) 6.9 5.0-11.6 N [facility] HospitalOwkhqpgLWRKNOMWGU0011-93-81 01:56:00 Test Item Value Reference Range Interpretation Comments Hgb (test code = Hgb) 14.8 14.0-18.0 N [facility] HospitalVzupgrzNBBVWPSAZX4636-82-59 01:56:00 Test Item Value Reference Range Interpretation Comments RBC (test code = RBC) 5.05 4.70-6.10 N [facility] HospitalQdjvwldGFOJRDSMGO4319-81-76 01:56:00 Test Item Value Reference Range Interpretation Comments Hct (test code = Hct) 44.5 42.0-54.0 N [facility] HospitalColhkkkTMBTTBGWWA0113-39-42 01:56:00 Test Item Value Reference Range Interpretation Comments WBC (test code = WBC) 11.8 3.7-10.4 H [facility] HospitalPkoxovpAOLEQWLHNV7676-30-95 01:56:00 Test Item Value Reference Range Interpretation Comments MPV (test code = MPV) 9.2 7.4-10.4 N [facility] HospitalRfzrcafJRFVWVRCTC1428-66-30 01:56:00 Test Item Value Reference Range Interpretation Comments MCHC (test code = MCHC) 33.2 32.0-36.0 N [facility] HospitalThgtuszTKRPKZIENM3228-08-27 01:56:00 Test Item Value Reference Range Interpretation Comments MCV (test code = MCV) 88.1 80.0-94.0 N [facility] HospitalKyqxfewXFAFPNPXVY6107-72-49 01:56:00 Test Item Value Reference Range Interpretation Comments MCH (test code = MCH) 29.3 pg 27.0-31.0 N [facility] HospitalTkackmjWJYXQBIUUX6997-77-73 01:56:00 Test Item Value Reference Range Interpretation Comments Platelet (test code = Platelet) 175 133-450 N [facility] HospitalUknwvxeUQIVLPSIAV9981-29-59 01:56:00 Test Item Value Reference Range Interpretation Comments RDW (test code = RDW) 12.4 11.5-14.5 N [facility] HospitalVmwerscLUIXTHKEQF0090-55-68 01:56:00 Test Item Value Reference Range Interpretation Comments Lymphocytes (test code = Lymphocytes) 14.0 20.0-40.0 L [facility] HospitalWtesuqcZBCAOQNJFK2811-98-71 01:56:00 Test Item Value Reference Range Interpretation Comments RBC Morph (test code = Normal (12/28/2012 N RBC Morph) 20:56:00) [facility] HospitalYixwcwgFVIYJIGDTJ3941-53-80 01:56:00 Test Item Value Reference Range Interpretation Comments Bands (test code = 6.0 See_Comment N [Automat ed message] The Bands) system which ge nerated this result transmit abdelrahman reference range : <=11.0. The reference r annemarie was not used to interpr et this result as gurpreet l/abnormal. [facility] HospitalYbeojnxVVDPSBTHXO7428-50-07 01:56:00 Test Item Value Reference Range Interpretation Comments Segs (test code = Segs) 72.0 45.0-75.0 N [facility] HospitalXjimljgVJBDOTLNXL6277-94-41 01:56:00 Test Item Value Reference Range Interpretation Comments Monocytes # (test code 0.9 See_Comment H [Aut omated message] The = Monocytes #) system which generated this result tra nsmitted reference range : <=0.8. The reference r annemarie was not used to int erpret this result as normal/abnormal . [facility] HospitalDwoumnuAIUZAMADOL9579-91-68 01:56:00 Test Item Value Reference Range Interpretation Comments Lymphocytes # (test code = Lymphocytes 1.7 1.0-5.5 N #) [facility] HospitalKpdfwzaRHACETESIP4779-20-62 01:56:00 Test Item Value Reference Range Interpretation Comments Segs-Bands # (test code = Segs-Bands #) 9.2 1.5-8.1 H [facility] HospitalJpghbogHCVKFHZXVF7226-14-84 01:56:00 Test Item Value Reference Range Interpretation Comments Monocytes (test code = Monocytes) 8.0 2.0-12.0 N [facility] HospitalExojnyxVTBKEFIASM3780-90-32 01:56:00 Test Item Value Reference Range Interpretation Comments Atypical Lymphs (test code = Atypical 0.0 N Lymphs) [facility] HospitalSjtbtrwFXEXBNFNTL6457-73-66 01:56:00 Test Item Value Reference Range Interpretation Comments Plt Morph (test code = Normal (12/28/2012 N Plt Morph) 20:56:00) [facility] CenterUbtyboyHZPLXKGIT3937-86-60 01:56:00 Test Item Value Reference Range Interpretation Comments O2 Sat Frankie (test code = O2 Sat Frankie) 84.6 40.0-70.0 H [facility] CenterTnpbqchQGDQNFLGK3496-41-69 01:56:00 Test Item Value Reference Range Interpretation Comments Temp Frankie (test code = Temp Frankie) 37.0 [facility] CenterJjjvmtwCJWTQFSXW6664-89-18 01:56:00 Test Item Value Reference Range Interpretation Comments BE Frankie (test code = -4 See_Comment L [Automa abdelrahman message] The BE Frankie) system which ge nerated this result transmit abdelrahman reference range : <=2. The reference range was not used to interpr et this result as gurpreet l/abnormal. [facility] CenterFmgomvcUTZUHGPGQ9228-11-61 01:56:00 Test Item Value Reference Range Interpretation Comments HCO3 Frankie (test code = HCO3 Frankie) 20 22-26 L [facility] CenterAqfnbviYHUYTNPAF3059-38-10 01:56:00 Test Item Value Reference Range Interpretation Comments pO2 Frankie (test code = pO2 Frankie) 49 20-49 N [facility] CenterQxrxyvrYWODIFICK9165-40-51 01:56:00 Test Item Value Reference Range Interpretation Comments pH Frankie (test code = pH Frankie) 7.41 7.28-7.42 N [facility] CenterDixdtzzLYDTMLHRC7053-22-22 01:56:00 Test Item Value Reference Range Interpretation Comments pCO2 Frankie (test code = pCO2 Frankie) 31 38-52 L [facility] CenterLppotbwMRZVXCAHO9101-73-18 01:56:00 Test Item Value Reference Range Interpretation Comments Lactic Acid Lvl (test code = Lactic 4.4 0.5-2.2 H Acid Lvl) [facility] CenterTckhoxgGEJYWDRVA8399-64-75 01:56:00 Test Item Value Reference Range Interpretation Comments Ethanol Lvl (test code = Ethanol Lvl) 79 [facility] CenterVoktoreGHORPQEQC1537-01-09 01:56:00 Test Item Value Reference Range Interpretation Comments Etoh (%) (test code = Etoh (%)) 0.079 [facility] CenterJsgutzqWWHAYPGLK1098-84-67 01:56:00 Test Item Value Reference Range Interpretation Comments eGFR (test code = eGFR) 93 [facility] CenterPkitascZPOQHMXAP2935-28-86 01:56:00 Test Item Value Reference Range Interpretation Comments BUN (test code = BUN) 6 7-22 L [facility] CenterZnslubuHLMYQWPLX8397-93-97 01:56:00 Test Item Value Reference Range Interpretation Comments Creatinine Lvl (test code = Creatinine 1.1 0.5-1.4 N Lvl) [facility] CenterUqonzirGXBBTACMY8169-40-86 01:56:00 Test Item Value Reference Range Interpretation Comments Glucose Lvl (test code = Glucose Lvl) 124 70-99 H [facility] CenterBixrqbnGQOHECLUT9541-49-67 01:56:00 Test Item Value Reference Range Interpretation Comments Sodium Lvl (test code = Sodium Lvl) 140 135-145 N [facility] CenterGkwuyhiEOYJKLVAT2842-54-51 01:56:00 Test Item Value Reference Range Interpretation Comments Chloride Lvl (test code = Chloride Lvl) 103 95-109 N [facility] CenterFwzdhjtRNCCSFQNR0437-31-96 01:56:00 Test Item Value Reference Range Interpretation Comments CO2 (test code = CO2) 21 24-32 L [facility] CenterKavqszyJRVBHTBOC6375-42-08 01:56:00 Test Item Value Reference Range Interpretation Comments Potassium Lvl (test code = Potassium 3.1 3.5-5.1 L Lvl) [facility] CenterCkdzgteZZEQUDXPK3396-18-79 01:56:00 Test Item Value Reference Range Interpretation Comments Calcium Lvl (test code = Calcium Lvl) 8.6 8.5-10.5 N [facility] CenterBtzwzxeMXQOJWVQH6917-01-21 01:56:00 Test Item Value Reference Range Interpretation Comments AGAP (test code = AGAP) 19.1 10.0-20.0 N [facility] HospitalJwwahicXFPRLDLETI9447-89-16 01:56:00 Test Item Value Reference Range Interpretation Comments Estimated % Lysis (test 1.3 See_Comment N [Au tomated message] The code = Estimated % system wh ich generated Lysis) this result tra nsmitted reference range : <=7.5. The reference r annemarie was not used to int erpret this result as normal/abnormal . [facility] HospitalTtykmalOTXNLRAAJS3042-91-90 01:56:00 Test Item Value Reference Range Interpretation Comments K-time (test code = K-time) 2.2 min 0.6-2.3 N [facility] HospitalIuswjfkETPUKQUKAU8727-16-06 01:56:00 Test Item Value Reference Range Interpretation Comments Angle (test code = Angle) 64 degrees 64-80 N [facility] HospitalDhbidjbDYCVWZYMST1181-18-95 01:56:00 Test Item Value Reference Range Interpretation Comments Max Amp (test code = Max Amp) 58 mm 52-71 N [facility] HospitalIdumyvvDBUCTYQFOG9534-56-74 01:56:00 Test Item Value Reference Range Interpretation Comments R-time (test code = R-time) 0.8 min 0.4-0.7 H [facility] HospitalQyrtxikNCKTTHUZQH0143-74-79 01:56:00 Test Item Value Reference Range Interpretation Comments Split Point (test code = Split Point) 0.6 min [facility] HospitalZptymdcZVLBUDKCDQ7591-05-41 01:56:00 Test Item Value Reference Range Interpretation Comments Rapid TEG Sample Type Citrated Whole Blood (test code = Rapid TEG Sample Type) [facility] HospitalBwyqjaiBCVWVEYQIS2317-18-36 01:56:00 Test Item Value Reference Range Interpretation Comments ACT (TEG) (test code = ACT (TEG)) 121 s 86-118 H [facility] HospitalNfkvbcuMLKYEYQMWK8837-91-50 01:56:00 Test Item Value Reference Range Interpretation Comments G-value (test code = G-value) 6.9 5.0-11.6 N [facility] HospitalJtuxgpxFZYFEPSWOX3870-95-88 01:56:00 Test Item Value Reference Range Interpretation Comments Hgb (test code = Hgb) 14.8 14.0-18.0 N [facility] HospitalWnjgwvcTSDRJLASOL8132-63-34 01:56:00 Test Item Value Reference Range Interpretation Comments RBC (test code = RBC) 5.05 4.70-6.10 N [facility] HospitalRztexkeHXINTAVTPS6574-97-28 01:56:00 Test Item Value Reference Range Interpretation Comments Hct (test code = Hct) 44.5 42.0-54.0 N [facility] HospitalZrqjismCRXVIBTIAS6762-46-23 01:56:00 Test Item Value Reference Range Interpretation Comments WBC (test code = WBC) 11.8 3.7-10.4 H [facility] HospitalRsrsfdjUEYRKGSWDB9582-24-86 01:56:00 Test Item Value Reference Range Interpretation Comments MPV (test code = MPV) 9.2 7.4-10.4 N [facility] HospitalTjjxkfzDGBYXTGXPL9699-25-95 01:56:00 Test Item Value Reference Range Interpretation Comments MCHC (test code = MCHC) 33.2 32.0-36.0 N [facility] HospitalZllxlbgESNRKVRMAF3040-10-98 01:56:00 Test Item Value Reference Range Interpretation Comments MCV (test code = MCV) 88.1 80.0-94.0 N [facility] HospitalOpbwiqdOELAXGZLNI0341-30-17 01:56:00 Test Item Value Reference Range Interpretation Comments MCH (test code = MCH) 29.3 pg 27.0-31.0 N [facility] HospitalMaxnwmkCPPCQKQKLZ3148-71-65 01:56:00 Test Item Value Reference Range Interpretation Comments Platelet (test code = Platelet) 175 133-450 N [facility] HospitalCqdjpmxYPTQSPMERK2006-39-27 01:56:00 Test Item Value Reference Range Interpretation Comments RDW (test code = RDW) 12.4 11.5-14.5 N [facility] HospitalXyollyxTQWUVOUOXQ7198-06-41 01:56:00 Test Item Value Reference Range Interpretation Comments Lymphocytes (test code = Lymphocytes) 14.0 20.0-40.0 L [facility] HospitalSnrnhdsABWYKJHRJX9197-31-25 01:56:00 Test Item Value Reference Range Interpretation Comments RBC Morph (test code = Normal (12/28/2012 N RBC Morph) 20:56:00) [facility] HospitalXnzwwrtCVGUYYQPLH8542-90-78 01:56:00 Test Item Value Reference Range Interpretation Comments Bands (test code = 6.0 See_Comment N [Automat ed message] The Bands) system which ge nerated this result transmit abdelrahman reference range : <=11.0. The reference r annemarie was not used to interpr et this result as gurpreet l/abnormal. [facility] HospitalKlfgxjqMSEGCUIGSR5109-22-19 01:56:00 Test Item Value Reference Range Interpretation Comments Segs (test code = Segs) 72.0 45.0-75.0 N [facility] HospitalHbwegjkCWFIYSBLNW9035-63-83 01:56:00 Test Item Value Reference Range Interpretation Comments Monocytes # (test code 0.9 See_Comment H [Aut omated message] The = Monocytes #) system which generated this result tra nsmitted reference range : <=0.8. The reference r annemarie was not used to int erpret this result as normal/abnormal . [facility] HospitalWidmvcaXSVLRFBEBH7632-79-74 01:56:00 Test Item Value Reference Range Interpretation Comments Lymphocytes # (test code = Lymphocytes 1.7 1.0-5.5 N #) [facility] HospitalVeyhxlzZYLDNXELPD6165-23-98 01:56:00 Test Item Value Reference Range Interpretation Comments Segs-Bands # (test code = Segs-Bands #) 9.2 1.5-8.1 H [facility] HospitalTwdpsosTRTPMFMFGZ3325-08-22 01:56:00 Test Item Value Reference Range Interpretation Comments Monocytes (test code = Monocytes) 8.0 2.0-12.0 N [facility] HospitalDslbaetJZYBXIVDKT9767-34-22 01:56:00 Test Item Value Reference Range Interpretation Comments Atypical Lymphs (test code = Atypical 0.0 N Lymphs) [facility] HospitalUipusnzIJNGIHVKQR9452-63-97 01:56:00 Test Item Value Reference Range Interpretation Comments Plt Morph (test code = Normal (12/28/2012 N Plt Morph) 20:56:00) [facility] CenterWfexjbcPJCDPAGAG4303-81-73 01:56:00 Test Item Value Reference Range Interpretation Comments O2 Sat Frankie (test code = O2 Sat Frankie) 84.6 40.0-70.0 H [facility] CenterStwkthjOKYDYWNBJ9276-07-97 01:56:00 Test Item Value Reference Range Interpretation Comments Temp Frankie (test code = Temp Frankie) 37.0 [facility] CenterSszqxfwFBJKLGWYC6958-83-77 01:56:00 Test Item Value Reference Range Interpretation Comments BE Frankie (test code = -4 See_Comment L [Automa abdelrahman message] The BE Frankie) system which ge nerated this result transmit abdelrahman reference range : <=2. The reference range was not used to interpr et this result as gurpreet l/abnormal. [facility] CenterAeljqptVBAXHMKFX1971-23-23 01:56:00 Test Item Value Reference Range Interpretation Comments HCO3 Frankie (test code = HCO3 Frankie) 20 22-26 L [facility] CenterFphuzihRUVRGIHMH3482-65-46 01:56:00 Test Item Value Reference Range Interpretation Comments pO2 Frankie (test code = pO2 Frankie) 49 20-49 N [facility] CenterHqhonelOILTGUVQI6184-96-72 01:56:00 Test Item Value Reference Range Interpretation Comments pH Frankie (test code = pH Frankie) 7.41 7.28-7.42 N [facility] CenterEjyrwkxYDTDOKCNP2564-87-20 01:56:00 Test Item Value Reference Range Interpretation Comments pCO2 Frankie (test code = pCO2 Frankie) 31 38-52 L [facility] CenterTlbzhmdPAEJWLUGK5990-49-98 01:56:00 Test Item Value Reference Range Interpretation Comments Lactic Acid Lvl (test code = Lactic 4.4 0.5-2.2 H Acid Lvl) [facility] CenterGbsnscrYERMAKPRD0924-57-85 01:56:00 Test Item Value Reference Range Interpretation Comments Ethanol Lvl (test code = Ethanol Lvl) 79 [facility] CenterZlrzhewOJGXNEDSB4851-84-15 01:56:00 Test Item Value Reference Range Interpretation Comments Etoh (%) (test code = Etoh (%)) 0.079 [facility] CenterVqsawkmSZLYEBHHS3368-66-20 01:56:00 Test Item Value Reference Range Interpretation Comments eGFR (test code = eGFR) 93 [facility] CenterGsazxskQOWJSKFZL8133-35-24 01:56:00 Test Item Value Reference Range Interpretation Comments BUN (test code = BUN) 6 7-22 L [facility] CenterYblddzsMZRYVLDUX3452-63-39 01:56:00 Test Item Value Reference Range Interpretation Comments Creatinine Lvl (test code = Creatinine 1.1 0.5-1.4 N Lvl) [facility] CenterIvojtylNSRXVLCLV9601-32-55 01:56:00 Test Item Value Reference Range Interpretation Comments Glucose Lvl (test code = Glucose Lvl) 124 70-99 H [facility] CenterJfgurpjJADHIZJRJ2863-00-47 01:56:00 Test Item Value Reference Range Interpretation Comments Sodium Lvl (test code = Sodium Lvl) 140 135-145 N [facility] CenterQgffcghRPCDCEYIQ0264-14-17 01:56:00 Test Item Value Reference Range Interpretation Comments Chloride Lvl (test code = Chloride Lvl) 103 95-109 N [facility] CenterYtltmiiDQUGLXDCS5131-82-97 01:56:00 Test Item Value Reference Range Interpretation Comments CO2 (test code = CO2) 21 24-32 L [facility] CenterKvpbxxtHMYTJWBIH4730-51-63 01:56:00 Test Item Value Reference Range Interpretation Comments Potassium Lvl (test code = Potassium 3.1 3.5-5.1 L Lvl) [facility] CenterSicgpluUKURLPEJG4331-56-02 01:56:00 Test Item Value Reference Range Interpretation Comments Calcium Lvl (test code = Calcium Lvl) 8.6 8.5-10.5 N [facility] CenterXtesgqyTCQFTYDKI2810-70-90 01:56:00 Test Item Value Reference Range Interpretation Comments AGAP (test code = AGAP) 19.1 10.0-20.0 N [facility] HospitalWnsikcsFJSWGCDKNH0417-84-22 01:56:00 Test Item Value Reference Range Interpretation Comments Estimated % Lysis (test 1.3 See_Comment N [Au tomated message] The code = Estimated % system wh ich generated Lysis) this result tra nsmitted reference range : <=7.5. The reference r annemarie was not used to int erpret this result as normal/abnormal . [facility] HospitalIrskbfiHMRQMJQLKB7395-29-35 01:56:00 Test Item Value Reference Range Interpretation Comments K-time (test code = K-time) 2.2 min 0.6-2.3 N [facility] HospitalAsmtnnlQHTMLUTAXT4419-39-63 01:56:00 Test Item Value Reference Range Interpretation Comments Angle (test code = Angle) 64 degrees 64-80 N [facility] HospitalPnaqwziKYEGWBBOEV6897-74-73 01:56:00 Test Item Value Reference Range Interpretation Comments Max Amp (test code = Max Amp) 58 mm 52-71 N [facility] HospitalByilrecRIYFEVQFQI7436-83-76 01:56:00 Test Item Value Reference Range Interpretation Comments R-time (test code = R-time) 0.8 min 0.4-0.7 H [facility] HospitalLbcovfyKKOTOKGNTE8066-91-74 01:56:00 Test Item Value Reference Range Interpretation Comments Split Point (test code = Split Point) 0.6 min [facility] HospitalAvvazggJIZPZLEQRP8614-60-15 01:56:00 Test Item Value Reference Range Interpretation Comments Rapid TEG Sample Type Citrated Whole Blood (test code = Rapid TEG Sample Type) [place] [address]-08-31 01:56:00 Test Item Value Reference Range Interpretation Comments ACT (TEG) (test code = ACT (TEG)) 121 s 86-118 H [facility] HospitalMdsppphGXAVQLNRIR7268-04-48 01:56:00 Test Item Value Reference Range Interpretation Comments G-value (test code = G-value) 6.9 5.0-11.6 N [facility] HospitalQwetvveVHFEVQZYKH4142-59-39 01:56:00 Test Item Value Reference Range Interpretation Comments Hgb (test code = Hgb) 14.8 14.0-18.0 N [place] [address]-08-31 01:56:00 Test Item Value Reference Range Interpretation Comments RBC (test code = RBC) 5.05 4.70-6.10 N [facility] HospitalHpdrmqlAVSUQEZAFX5714-12-74 01:56:00 Test Item Value Reference Range Interpretation Comments Hct (test code = Hct) 44.5 42.0-54.0 N [facility] HospitalGiaakhiXGSBHJDVOU1467-70-77 01:56:00 Test Item Value Reference Range Interpretation Comments WBC (test code = WBC) 11.8 3.7-10.4 H [facility] HospitalYermhkaPCVRWQAJLF1619-13-03 01:56:00 Test Item Value Reference Range Interpretation Comments MPV (test code = MPV) 9.2 7.4-10.4 N [facility] HospitalLtdofsiWRLBEKBFKL8156-11-94 01:56:00 Test Item Value Reference Range Interpretation Comments MCHC (test code = MCHC) 33.2 32.0-36.0 N [facility] HospitalLyskbwlQQOJMHGJJR8065-25-04 01:56:00 Test Item Value Reference Range Interpretation Comments MCV (test code = MCV) 88.1 80.0-94.0 N [facility] HospitalZngppuqYHAPMADUPE1447-15-98 01:56:00 Test Item Value Reference Range Interpretation Comments MCH (test code = MCH) 29.3 pg 27.0-31.0 N [facility] HospitalMkoeeznIEEKLTFBAV2718-88-81 01:56:00 Test Item Value Reference Range Interpretation Comments Platelet (test code = Platelet) 175 133-450 N [facility] HospitalOxjczgkMESCIBEQSX4856-87-89 01:56:00 Test Item Value Reference Range Interpretation Comments RDW (test code = RDW) 12.4 11.5-14.5 N [facility] HospitalYckrityDXPLQOTITQ3227-20-19 01:56:00 Test Item Value Reference Range Interpretation Comments Lymphocytes (test code = Lymphocytes) 14.0 20.0-40.0 L [facility] HospitalFqmdrunEDYIWFNGRV9253-66-43 01:56:00 Test Item Value Reference Range Interpretation Comments RBC Morph (test code = Normal (12/28/2012 N RBC Morph) 20:56:00) [facility] HospitalKzmzmtrBARSEBXCAC3175-13-41 01:56:00 Test Item Value Reference Range Interpretation Comments Bands (test code = 6.0 See_Comment N [Automat ed message] The Bands) system which ge nerated this result transmit abdelrahman reference range : <=11.0. The reference r annemarie was not used to interpr et this result as gurpreet l/abnormal. [facility] HospitalHnbhdlpPZIZFGXHLN2681-30-26 01:56:00 Test Item Value Reference Range Interpretation Comments Segs (test code = Segs) 72.0 45.0-75.0 N [facility] HospitalSvpolddKKGUQYHERC2620-66-94 01:56:00 Test Item Value Reference Range Interpretation Comments Monocytes # (test code 0.9 See_Comment H [Aut omated message] The = Monocytes #) system which generated this result tra nsmitted reference range : <=0.8. The reference r annemarie was not used to int erpret this result as normal/abnormal . [facility] HospitalTrycncdMDJEYGEOZD7944-12-57 01:56:00 Test Item Value Reference Range Interpretation Comments Lymphocytes # (test code = Lymphocytes 1.7 1.0-5.5 N #) [facility] HospitalVwlhrnwPICXGBRENQ2580-88-16 01:56:00 Test Item Value Reference Range Interpretation Comments Segs-Bands # (test code = Segs-Bands #) 9.2 1.5-8.1 H [facility] HospitalDqeflmtTWNGDEUKWN8398-45-79 01:56:00 Test Item Value Reference Range Interpretation Comments Monocytes (test code = Monocytes) 8.0 2.0-12.0 N [facility] HospitalWkgrgfkDRTXTPMVNL7230-67-04 01:56:00 Test Item Value Reference Range Interpretation Comments Atypical Lymphs (test code = Atypical 0.0 N Lymphs) [facility] HospitalDdklawvYRXICMGTRW2022-57-81 01:56:00 Test Item Value Reference Range Interpretation Comments Plt Morph (test code = Normal (12/28/2012 N Plt Morph) 20:56:00) [facility] CenterIzxhvopVXKOLONAI7668-13-58 01:56:00 Test Item Value Reference Range Interpretation Comments O2 Sat Frankie (test code = O2 Sat Frankie) 84.6 40.0-70.0 H [facility] CenterDrruztjAAUBUGJTP4516-86-55 01:56:00 Test Item Value Reference Range Interpretation Comments Temp Frankie (test code = Temp Frankie) 37.0 [facility] CenterXcyuqgaSFLWYVLGT3519-91-02 01:56:00 Test Item Value Reference Range Interpretation Comments BE Frankie (test code = -4 See_Comment L [Automa abdelrahman message] The BE Frankie) system which ge nerated this result transmit abdelrahman reference range : <=2. The reference range was not used to interpr et this result as gurpreet l/abnormal. [facility] CenterSydyqiwYYQITWUIE2369-32-27 01:56:00 Test Item Value Reference Range Interpretation Comments HCO3 Frankie (test code = HCO3 Frankie) 20 22-26 L [facility] CenterPizhgfjEGVANBVYO9584-25-67 01:56:00 Test Item Value Reference Range Interpretation Comments pO2 Frankie (test code = pO2 Frankie) 49 20-49 N [facility] CenterBldgfmbCUKNUXJWF0309-22-24 01:56:00 Test Item Value Reference Range Interpretation Comments pH Frankie (test code = pH Frankie) 7.41 7.28-7.42 N [facility] CenterCiwpvakTMWSQHTLO5160-63-87 01:56:00 Test Item Value Reference Range Interpretation Comments pCO2 Frankie (test code = pCO2 Frankie) 31 38-52 L [facility] CenterNjojvujOEOPKJDFE6034-53-77 01:56:00 Test Item Value Reference Range Interpretation Comments Lactic Acid Lvl (test code = Lactic 4.4 0.5-2.2 H Acid Lvl) [facility] CenterLoqkuqaKJLZYAVNW8183-01-41 01:56:00 Test Item Value Reference Range Interpretation Comments Ethanol Lvl (test code = Ethanol Lvl) 79 [facility] CenterBqsxhulNSAYYGBNC2940-17-85 01:56:00 Test Item Value Reference Range Interpretation Comments Etoh (%) (test code = Etoh (%)) 0.079 [facility] CenterBvcaukcHFZEYUNAO9406-28-97 01:56:00 Test Item Value Reference Range Interpretation Comments eGFR (test code = eGFR) 93 [facility] CenterXhnnvhkOASNOEVRE0192-41-14 01:56:00 Test Item Value Reference Range Interpretation Comments BUN (test code = BUN) 6 7-22 L [facility] CenterCsjowadNUJQJFCBD8197-74-58 01:56:00 Test Item Value Reference Range Interpretation Comments Creatinine Lvl (test code = Creatinine 1.1 0.5-1.4 N Lvl) [facility] CenterSaetrkeZTNLHKMVO7726-67-34 01:56:00 Test Item Value Reference Range Interpretation Comments Glucose Lvl (test code = Glucose Lvl) 124 70-99 H [facility] CenterNmiigtfIPVKBJSJP1851-12-05 01:56:00 Test Item Value Reference Range Interpretation Comments Sodium Lvl (test code = Sodium Lvl) 140 135-145 N [facility] CenterUqjhqjsOKAMGNBUH4950-67-14 01:56:00 Test Item Value Reference Range Interpretation Comments Chloride Lvl (test code = Chloride Lvl) 103 95-109 N [facility] CenterXktezndFDDCJFQHC9294-22-70 01:56:00 Test Item Value Reference Range Interpretation Comments CO2 (test code = CO2) 21 24-32 L [facility] CenterWimxpccLGFJEFBXM1439-87-37 01:56:00 Test Item Value Reference Range Interpretation Comments Potassium Lvl (test code = Potassium 3.1 3.5-5.1 L Lvl) [facility] CenterQwtchrrXTLIJKNWF0666-92-10 01:56:00 Test Item Value Reference Range Interpretation Comments Calcium Lvl (test code = Calcium Lvl) 8.6 8.5-10.5 N [facility] CenterYdqkzdxNISXRJYPF0904-07-91 01:56:00 Test Item Value Reference Range Interpretation Comments AGAP (test code = AGAP) 19.1 10.0-20.0 N [facility] HospitalCbfhksrQYRJEZQNDG4711-02-56 01:56:00 Test Item Value Reference Range Interpretation Comments Estimated % Lysis (test 1.3 See_Comment N [Au tomated message] The code = Estimated % system wh ich generated Lysis) this result tra nsmitted reference range : <=7.5. The reference r annemarie was not used to int erpret this result as normal/abnormal . [facility] HospitalTkzsbrvMCSYULBDVW8375-78-35 01:56:00 Test Item Value Reference Range Interpretation Comments K-time (test code = K-time) 2.2 min 0.6-2.3 N [facility] HospitalWhfpngyTMRGESGARF9361-43-05 01:56:00 Test Item Value Reference Range Interpretation Comments Angle (test code = Angle) 64 degrees 64-80 N [facility] HospitalKdtnvegVKYMSWIICQ8382-32-87 01:56:00 Test Item Value Reference Range Interpretation Comments Max Amp (test code = Max Amp) 58 mm 52-71 N [facility] HospitalFymmlyvTSGKVLHOXQ2482-14-25 01:56:00 Test Item Value Reference Range Interpretation Comments R-time (test code = R-time) 0.8 min 0.4-0.7 H [facility] HospitalAtgzpnwXRJLURTXZJ0732-57-00 01:56:00 Test Item Value Reference Range Interpretation Comments Split Point (test code = Split Point) 0.6 min [facility] HospitalVzjdtubXDANPVSTWL0108-88-24 01:56:00 Test Item Value Reference Range Interpretation Comments Rapid TEG Sample Type Citrated Whole Blood (test code = Rapid TEG Sample Type) [facility] HospitalRszktjjJAUOKVDDMB0075-09-69 01:56:00 Test Item Value Reference Range Interpretation Comments ACT (TEG) (test code = ACT (TEG)) 121 s 86-118 H [facility] HospitalZsowdaoAKSQPVFEJH8123-48-78 01:56:00 Test Item Value Reference Range Interpretation Comments G-value (test code = G-value) 6.9 5.0-11.6 N [facility] HospitalEcfbmkrSLLTBMGYPM8824-52-13 01:56:00 Test Item Value Reference Range Interpretation Comments Hgb (test code = Hgb) 14.8 14.0-18.0 N [facility] HospitalFlxttruJUCFTMQBYX8686-68-43 01:56:00 Test Item Value Reference Range Interpretation Comments RBC (test code = RBC) 5.05 4.70-6.10 N [facility] HospitalHcnwpjqQTDORNZERJ6180-41-60 01:56:00 Test Item Value Reference Range Interpretation Comments Hct (test code = Hct) 44.5 42.0-54.0 N [facility] HospitalIzxmubaLFGMBHGKCC9197-43-59 01:56:00 Test Item Value Reference Range Interpretation Comments WBC (test code = WBC) 11.8 3.7-10.4 H [facility] HospitalEqcxvhxUJBYSJCHRX8303-49-35 01:56:00 Test Item Value Reference Range Interpretation Comments MPV (test code = MPV) 9.2 7.4-10.4 N [facility] HospitalAbnnjfvSMXTIDLMPI1934-24-10 01:56:00 Test Item Value Reference Range Interpretation Comments MCHC (test code = MCHC) 33.2 32.0-36.0 N [facility] HospitalYjgwbjuKIUXDOQEQA7835-51-81 01:56:00 Test Item Value Reference Range Interpretation Comments MCV (test code = MCV) 88.1 80.0-94.0 N [facility] HospitalTxevpkqYZTJWULMCB1378-61-50 01:56:00 Test Item Value Reference Range Interpretation Comments MCH (test code = MCH) 29.3 pg 27.0-31.0 N [facility] HospitalVoyokqaWHNRMUQMYA2435-94-47 01:56:00 Test Item Value Reference Range Interpretation Comments Platelet (test code = Platelet) 175 133-450 N [facility] HospitalAuzvsgpKWESBSXDLL8743-82-64 01:56:00 Test Item Value Reference Range Interpretation Comments RDW (test code = RDW) 12.4 11.5-14.5 N [facility] HospitalLvcngpcESJBJNJBGP8347-69-85 01:56:00 Test Item Value Reference Range Interpretation Comments Lymphocytes (test code = Lymphocytes) 14.0 20.0-40.0 L [facility] HospitalLulymasVRCMDFSJFM2107-62-63 01:56:00 Test Item Value Reference Range Interpretation Comments RBC Morph (test code = Normal (12/28/2012 N RBC Morph) 20:56:00) [facility] HospitalLmylnajILYIFYVIMX2074-88-96 01:56:00 Test Item Value Reference Range Interpretation Comments Bands (test code = 6.0 See_Comment N [Automat ed message] The Bands) system which ge nerated this result transmit abdelrahman reference range : <=11.0. The reference r annemarie was not used to interpr et this result as gurpreet l/abnormal. [facility] HospitalFmxflrnORBGATQRNO8593-81-35 01:56:00 Test Item Value Reference Range Interpretation Comments Segs (test code = Segs) 72.0 45.0-75.0 N [facility] HospitalCxdsvbsUXHBKLYQMM7645-85-71 01:56:00 Test Item Value Reference Range Interpretation Comments Monocytes # (test code 0.9 See_Comment H [Aut omated message] The = Monocytes #) system which generated this result tra nsmitted reference range : <=0.8. The reference r annemarie was not used to int erpret this result as normal/abnormal . [facility] HospitalHawuqytQOFEJZZLBQ1009-27-42 01:56:00 Test Item Value Reference Range Interpretation Comments Lymphocytes # (test code = Lymphocytes 1.7 1.0-5.5 N #) [facility] HospitalVymbhhjJYBBIOAMLQ1321-30-70 01:56:00 Test Item Value Reference Range Interpretation Comments Segs-Bands # (test code = Segs-Bands #) 9.2 1.5-8.1 H [facility] HospitalUyxpseyVRFNWAWYDJ2103-28-29 01:56:00 Test Item Value Reference Range Interpretation Comments Monocytes (test code = Monocytes) 8.0 2.0-12.0 N [facility] HospitalAdjzbakRHAAPBTLPN7634-34-61 01:56:00 Test Item Value Reference Range Interpretation Comments Atypical Lymphs (test code = Atypical 0.0 N Lymphs) [facility] HospitalVsggitnJXWAUXXLLD4526-93-08 01:56:00 Test Item Value Reference Range Interpretation Comments Plt Morph (test code = Normal (12/28/2012 N Plt Morph) 20:56:00) [facility]RmslkfuMNNUGXWNQ1382-44-28 01:56:00 Test Item Value Reference Range Interpretation Comments O2 Sat Frankie (test code = O2 Sat Frankie) 84.6 40.0-70.0 H [facility] CenterWythrvzICNWPKLAA0763-99-30 01:56:00 Test Item Value Reference Range Interpretation Comments Temp Frankie (test code = Temp Frankie) 37.0 [facility] CenterIhtmfzjSHAPHNCAA3938-83-13 01:56:00 Test Item Value Reference Range Interpretation Comments BE Frankie (test code = -4 See_Comment L [Automa abdelrahman message] The BE Frankie) system which ge nerated this result transmit abdelrahman reference range : <=2. The reference range was not used to interpr et this result as gurpreet l/abnormal. [facility] CenterPujgnmjLJXDSWHQQ5449-37-22 01:56:00 Test Item Value Reference Range Interpretation Comments HCO3 Frankie (test code = HCO3 Frankie) 20 22-26 L [facility] CenterQkcdbsiZURHSGLWB3467-75-10 01:56:00 Test Item Value Reference Range Interpretation Comments pO2 Frankie (test code = pO2 Frankie) 49 20-49 N [facility] CenterWxzdjkwWKFKJIYSM8567-88-35 01:56:00 Test Item Value Reference Range Interpretation Comments pH Frankie (test code = pH Frankie) 7.41 7.28-7.42 N [facility] CenterXxmzuvxMZWACHOSF0447-31-81 01:56:00 Test Item Value Reference Range Interpretation Comments pCO2 Frankie (test code = pCO2 Frankie) 31 38-52 L [facility] CenterOjgzageWQGRYWYLD3008-10-66 01:56:00 Test Item Value Reference Range Interpretation Comments Lactic Acid Lvl (test code = Lactic 4.4 0.5-2.2 H Acid Lvl) [facility] CenterHvatvaaYSOVAPWRN4801-53-18 01:56:00 Test Item Value Reference Range Interpretation Comments Ethanol Lvl (test code = Ethanol Lvl) 79 [facility] CenterPirwhqpMEVCTJJGJ0570-11-82 01:56:00 Test Item Value Reference Range Interpretation Comments Etoh (%) (test code = Etoh (%)) 0.079 [facility] CenterNdglkjpJIZNMAWPK8525-47-81 01:56:00 Test Item Value Reference Range Interpretation Comments eGFR (test code = eGFR) 93 [facility] CenterZdxuooqBVSCQUNGT5717-66-15 01:56:00 Test Item Value Reference Range Interpretation Comments BUN (test code = BUN) 6 7-22 L [facility] CenterPdqkgnsTQVEUQAJW2900-25-44 01:56:00 Test Item Value Reference Range Interpretation Comments Creatinine Lvl (test code = Creatinine 1.1 0.5-1.4 N Lvl) [facility] CenterDgfhrbfSJUOWSSSJ7542-90-65 01:56:00 Test Item Value Reference Range Interpretation Comments Glucose Lvl (test code = Glucose Lvl) 124 70-99 H [facility] CenterGohdsxaHPVOLIHDP7078-87-51 01:56:00 Test Item Value Reference Range Interpretation Comments Sodium Lvl (test code = Sodium Lvl) 140 135-145 N [facility] CenterYzouegvYNHPHGYBE5824-70-58 01:56:00 Test Item Value Reference Range Interpretation Comments Chloride Lvl (test code = Chloride Lvl) 103 95-109 N [facility] CenterIlqjngnQADSHGTYR7845-90-14 01:56:00 Test Item Value Reference Range Interpretation Comments CO2 (test code = CO2) 21 24-32 L [facility] CenterDfswldvKIQQPUYNN7514-59-48 01:56:00 Test Item Value Reference Range Interpretation Comments Potassium Lvl (test code = Potassium 3.1 3.5-5.1 L Lvl) [facility] CenterFazeymwJDGUJPAOU5593-74-67 01:56:00 Test Item Value Reference Range Interpretation Comments Calcium Lvl (test code = Calcium Lvl) 8.6 8.5-10.5 N [facility] CenterJkxlojzZKKCSXGBA0402-33-54 01:56:00 Test Item Value Reference Range Interpretation Comments AGAP (test code = AGAP) 19.1 10.0-20.0 N [facility] HospitalZiwbadtLCOLUZCXRT7700-69-37 01:56:00 Test Item Value Reference Range Interpretation Comments Estimated % Lysis (test 1.3 See_Comment N [Au tomated message] The code = Estimated % system wh ich generated Lysis) this result tra nsmitted reference range : <=7.5. The reference r annemarie was not used to int erpret this result as normal/abnormal . [facility] HospitalUjbvcbgTIXOHAUIEA3699-71-37 01:56:00 Test Item Value Reference Range Interpretation Comments K-time (test code = K-time) 2.2 min 0.6-2.3 N [facility] HospitalLewcdfdKVGTKRGKTD3570-16-47 01:56:00 Test Item Value Reference Range Interpretation Comments Angle (test code = Angle) 64 degrees 64-80 N [facility] HospitalZgzpznuNMNEDUCOQV8253-10-88 01:56:00 Test Item Value Reference Range Interpretation Comments Max Amp (test code = Max Amp) 58 mm 52-71 N [facility] HospitalFtedyvtQVAJMWJMFX5059-34-62 01:56:00 Test Item Value Reference Range Interpretation Comments R-time (test code = R-time) 0.8 min 0.4-0.7 H [facility] HospitalGchfqalKSKZDLBEBA4877-70-40 01:56:00 Test Item Value Reference Range Interpretation Comments Split Point (test code = Split Point) 0.6 min [facility] HospitalJvrraufJNPLIRQDRE4168-98-91 01:56:00 Test Item Value Reference Range Interpretation Comments Rapid TEG Sample Type Citrated Whole Blood (test code = Rapid TEG Sample Type) [facility] HospitalTnidcdsFKGRLMTGYB5447-36-29 01:56:00 Test Item Value Reference Range Interpretation Comments ACT (TEG) (test code = ACT (TEG)) 121 s 86-118 H [facility] HospitalYtrnlozFWYNWATQXV6623-63-58 01:56:00 Test Item Value Reference Range Interpretation Comments G-value (test code = G-value) 6.9 5.0-11.6 N [facility] HospitalNpsfszxBLKZXPEVKH6413-57-03 01:56:00 Test Item Value Reference Range Interpretation Comments Hgb (test code = Hgb) 14.8 14.0-18.0 N [facility] HospitalCpohrfqOENDADLZNS6583-73-48 01:56:00 Test Item Value Reference Range Interpretation Comments RBC (test code = RBC) 5.05 4.70-6.10 N [facility] HospitalAxnrangXFDZCQOMEK4098-19-26 01:56:00 Test Item Value Reference Range Interpretation Comments Hct (test code = Hct) 44.5 42.0-54.0 N [facility] HospitalLzjjvbqEYYXMCFVGE6099-68-71 01:56:00 Test Item Value Reference Range Interpretation Comments WBC (test code = WBC) 11.8 3.7-10.4 H [facility] HospitalEyftxwoZYRVFPIDWU4559-46-00 01:56:00 Test Item Value Reference Range Interpretation Comments MPV (test code = MPV) 9.2 7.4-10.4 N [facility] HospitalOgrmotyZTTCYJLSAO2371-20-18 01:56:00 Test Item Value Reference Range Interpretation Comments MCHC (test code = MCHC) 33.2 32.0-36.0 N [facility] HospitalPrbmfgkDYBPTIBFJY4017-38-19 01:56:00 Test Item Value Reference Range Interpretation Comments MCV (test code = MCV) 88.1 80.0-94.0 N [facility] HospitalNwylpmiUAGQQCJHRF8958-76-29 01:56:00 Test Item Value Reference Range Interpretation Comments MCH (test code = MCH) 29.3 pg 27.0-31.0 N [facility] HospitalGsverueVBTOLJSXAB4931-96-01 01:56:00 Test Item Value Reference Range Interpretation Comments Platelet (test code = Platelet) 175 133-450 N [facility] HospitalLknngoyQVNZHGOHIR6390-13-95 01:56:00 Test Item Value Reference Range Interpretation Comments RDW (test code = RDW) 12.4 11.5-14.5 N [facility] HospitalVxpldciLNUHDSRPBB9708-93-17 01:56:00 Test Item Value Reference Range Interpretation Comments Lymphocytes (test code = Lymphocytes) 14.0 20.0-40.0 L [facility] HospitalZjmfuysHEEOXLVYIG2037-71-07 01:56:00 Test Item Value Reference Range Interpretation Comments RBC Morph (test code = Normal (12/28/2012 N RBC Morph) 20:56:00) [facility] HospitalRxknoiiTDOVYGIFZD8416-91-55 01:56:00 Test Item Value Reference Range Interpretation Comments Bands (test code = 6.0 See_Comment N [Automat ed message] The Bands) system which ge nerated this result transmit abdelrahman reference range : <=11.0. The reference r annemarie was not used to interpr et this result as gurpreet l/abnormal. [facility] HospitalFwtikahLHXOKOBONK9008-19-10 01:56:00 Test Item Value Reference Range Interpretation Comments Segs (test code = Segs) 72.0 45.0-75.0 N [facility] HospitalBpubwjcQTTNSAIJEU1227-32-76 01:56:00 Test Item Value Reference Range Interpretation Comments Monocytes # (test code 0.9 See_Comment H [Aut omated message] The = Monocytes #) system which generated this result tra nsmitted reference range : <=0.8. The reference r annemarie was not used to int erpret this result as normal/abnormal . [facility] HospitalFhwtvfcJSLFJXTSYO9110-09-28 01:56:00 Test Item Value Reference Range Interpretation Comments Lymphocytes # (test code = Lymphocytes 1.7 1.0-5.5 N #) [facility] HospitalHeqlpyuEUFPVFGSGK3530-81-74 01:56:00 Test Item Value Reference Range Interpretation Comments Segs-Bands # (test code = Segs-Bands #) 9.2 1.5-8.1 H [facility] HospitalWlygzxpOLKCYIXKQR3616-98-12 01:56:00 Test Item Value Reference Range Interpretation Comments Monocytes (test code = Monocytes) 8.0 2.0-12.0 N [facility] HospitalLgtrhggUIGVIBUTGU3315-45-82 01:56:00 Test Item Value Reference Range Interpretation Comments Atypical Lymphs (test code = Atypical 0.0 N Lymphs) [facility] HospitalApkgsiqBUOFQWBMQL8760-10-35 01:56:00 Test Item Value Reference Range Interpretation Comments Plt Morph (test code = Normal (12/28/2012 N Plt Morph) 20:56:00) [facility] CenterJdoquyxTFWMIRKSV2834-84-48 01:56:00 Test Item Value Reference Range Interpretation Comments O2 Sat Frankie (test code = O2 Sat Frankie) 84.6 40.0-70.0 H [facility] CenterOjoirteHPCTAFFBN5637-79-53 01:56:00 Test Item Value Reference Range Interpretation Comments Temp Frankie (test code = Temp Frankie) 37.0 [facility] CenterBhobglbGVUKIMBJV5000-69-67 01:56:00 Test Item Value Reference Range Interpretation Comments BE Frankie (test code = -4 See_Comment L [Automa abdelrahman message] The BE Frankie) system which ge nerated this result transmit abdelrahman reference range : <=2. The reference range was not used to interpr et this result as gurpreet l/abnormal. [facility] CenterAuxhhkwBETMKSBPI2734-94-33 01:56:00 Test Item Value Reference Range Interpretation Comments HCO3 Frankie (test code = HCO3 Frankie) 20 22-26 L [facility] CenterHzzjgueTHEHUDRCZ8549-91-99 01:56:00 Test Item Value Reference Range Interpretation Comments pO2 Frankie (test code = pO2 Frankie) 49 20-49 N [facility] CenterCfqlyoxMSRKJNNCD5265-70-58 01:56:00 Test Item Value Reference Range Interpretation Comments pH Frankie (test code = pH Frankie) 7.41 7.28-7.42 N [facility] CenterMennhopRKNHZKNWL9167-16-57 01:56:00 Test Item Value Reference Range Interpretation Comments pCO2 Frankie (test code = pCO2 Frankie) 31 38-52 L [facility] CenterSjbnduqISWITEPEA5028-16-08 01:56:00 Test Item Value Reference Range Interpretation Comments Lactic Acid Lvl (test code = Lactic 4.4 0.5-2.2 H Acid Lvl) [facility] CenterJtczwiaRAHCYEGNR7111-79-62 01:56:00 Test Item Value Reference Range Interpretation Comments Ethanol Lvl (test code = Ethanol Lvl) 79 [facility] CenterNtgioygXTNDRKATC0484-94-31 01:56:00 Test Item Value Reference Range Interpretation Comments Etoh (%) (test code = Etoh (%)) 0.079 [facility] CenterJmzgkqrTFLYKRWJC3177-96-30 01:56:00 Test Item Value Reference Range Interpretation Comments eGFR (test code = eGFR) 93 [facility] CenterTpxjrmxONAZTHDWT6093-46-92 01:56:00 Test Item Value Reference Range Interpretation Comments BUN (test code = BUN) 6 7-22 L [facility] CenterTiownvsVVMDVDULN4548-04-04 01:56:00 Test Item Value Reference Range Interpretation Comments Creatinine Lvl (test code = Creatinine 1.1 0.5-1.4 N Lvl) [facility] CenterYcpzlnhCYLCYEMGQ5825-99-89 01:56:00 Test Item Value Reference Range Interpretation Comments Glucose Lvl (test code = Glucose Lvl) 124 70-99 H [facility] CenterDfgpgpkYOLZFQUWJ2021-61-57 01:56:00 Test Item Value Reference Range Interpretation Comments Sodium Lvl (test code = Sodium Lvl) 140 135-145 N [facility] CenterOibmaqcJRUSJURWB7749-04-82 01:56:00 Test Item Value Reference Range Interpretation Comments Chloride Lvl (test code = Chloride Lvl) 103 95-109 N [facility] CenterBsvpacjLVORJEPLN1655-80-92 01:56:00 Test Item Value Reference Range Interpretation Comments CO2 (test code = CO2) 21 24-32 L [facility] CenterAekdschBPCIFOKZE8309-40-82 01:56:00 Test Item Value Reference Range Interpretation Comments Potassium Lvl (test code = Potassium 3.1 3.5-5.1 L Lvl) [facility] CenterVywgkhqJPZEDOSWE3303-05-24 01:56:00 Test Item Value Reference Range Interpretation Comments Calcium Lvl (test code = Calcium Lvl) 8.6 8.5-10.5 N [facility] CenterNpyylovZAFSZIKNI9432-91-33 01:56:00 Test Item Value Reference Range Interpretation Comments AGAP (test code = AGAP) 19.1 10.0-20.0 N [facility] HospitalPqdqymgVOMPJXWZYW4530-11-32 01:56:00 Test Item Value Reference Range Interpretation Comments Estimated % Lysis (test 1.3 See_Comment N [Au tomated message] The code = Estimated % system wh ich generated Lysis) this result tra nsmitted reference range : <=7.5. The reference r annemarie was not used to int erpret this result as normal/abnormal . [facility] HospitalDpesyjsWOBLCNJQFH3920-81-60 01:56:00 Test Item Value Reference Range Interpretation Comments K-time (test code = K-time) 2.2 min 0.6-2.3 N [facility] HospitalDqmiebvFHKSUNEGWL9985-40-18 01:56:00 Test Item Value Reference Range Interpretation Comments Angle (test code = Angle) 64 degrees 64-80 N [facility] HospitalOvifqfcDQNVADOCOP3535-82-87 01:56:00 Test Item Value Reference Range Interpretation Comments Max Amp (test code = Max Amp) 58 mm 52-71 N [facility] HospitalDhvcpboVRNUCPBAXE5227-41-88 01:56:00 Test Item Value Reference Range Interpretation Comments R-time (test code = R-time) 0.8 min 0.4-0.7 H [place] [address]-08-31 01:56:00 Test Item Value Reference Range Interpretation Comments Split Point (test code = Split Point) 0.6 min [facility] HospitalSmjxkklRPXVHEAFKM4257-42-94 01:56:00 Test Item Value Reference Range Interpretation Comments Rapid TEG Sample Type Citrated Whole Blood (test code = Rapid TEG Sample Type) [facility] HospitalSycktbwHFKEOVLMGW2411-41-91 01:56:00 Test Item Value Reference Range Interpretation Comments ACT (TEG) (test code = ACT (TEG)) 121 s 86-118 H [facility] HospitalGogtpicNQKJKAHYKE6823-56-71 01:56:00 Test Item Value Reference Range Interpretation Comments G-value (test code = G-value) 6.9 5.0-11.6 N [facility] HospitalHamlnwwMYLOVEDVPI9540-52-04 01:56:00 Test Item Value Reference Range Interpretation Comments Hgb (test code = Hgb) 14.8 14.0-18.0 N [facility] HospitalNqahdnrTCMKQZWLMI7340-13-26 01:56:00 Test Item Value Reference Range Interpretation Comments RBC (test code = RBC) 5.05 4.70-6.10 N [facility] HospitalUjixkzzHVWRIRCSMW6105-24-35 01:56:00 Test Item Value Reference Range Interpretation Comments Hct (test code = Hct) 44.5 42.0-54.0 N [facility] HospitalGshahygHHYPUFTFET9857-30-88 01:56:00 Test Item Value Reference Range Interpretation Comments WBC (test code = WBC) 11.8 3.7-10.4 H [facility] HospitalQorsswdBXHJFJXGNW2073-63-95 01:56:00 Test Item Value Reference Range Interpretation Comments MPV (test code = MPV) 9.2 7.4-10.4 N [place] [address]-08-31 01:56:00 Test Item Value Reference Range Interpretation Comments MCHC (test code = MCHC) 33.2 32.0-36.0 N [facility] HospitalOoutwdyLMOOINQKLD4230-56-63 01:56:00 Test Item Value Reference Range Interpretation Comments MCV (test code = MCV) 88.1 80.0-94.0 N [facility] HospitalLuelddoGAPIAQRYKA7448-24-02 01:56:00 Test Item Value Reference Range Interpretation Comments MCH (test code = MCH) 29.3 pg 27.0-31.0 N [facility] HospitalUvabxmrDQAONAOJNY6390-19-43 01:56:00 Test Item Value Reference Range Interpretation Comments Platelet (test code = Platelet) 175 133-450 N [facility] HospitalZqmrsckFDFMFCJUDQ8972-89-23 01:56:00 Test Item Value Reference Range Interpretation Comments RDW (test code = RDW) 12.4 11.5-14.5 N [facility] HospitalBszfsdsEEJAVBFWPK7959-70-84 01:56:00 Test Item Value Reference Range Interpretation Comments Lymphocytes (test code = Lymphocytes) 14.0 20.0-40.0 L [facility] HospitalAldmvnpMUTOVGIRVD4043-34-77 01:56:00 Test Item Value Reference Range Interpretation Comments RBC Morph (test code = Normal (12/28/2012 N RBC Morph) 20:56:00) [facility] HospitalYaucjdgDFSYNSJPEA0866-38-97 01:56:00 Test Item Value Reference Range Interpretation Comments Bands (test code = 6.0 See_Comment N [Automat ed message] The Bands) system which ge nerated this result transmit abdelrahman reference range : <=11.0. The reference r annemarie was not used to interpr et this result as gurpreet l/abnormal. [facility] HospitalIlmisrdQKURSASBPK8259-84-89 01:56:00 Test Item Value Reference Range Interpretation Comments Segs (test code = Segs) 72.0 45.0-75.0 N [facility] HospitalXtsjqytCKPQQRIVLA7219-42-58 01:56:00 Test Item Value Reference Range Interpretation Comments Monocytes # (test code 0.9 See_Comment H [Aut omated message] The = Monocytes #) system which generated this result tra nsmitted reference range : <=0.8. The reference r annemarie was not used to int erpret this result as normal/abnormal . [facility] HospitalOeejargEZWWENAMMY3717-00-84 01:56:00 Test Item Value Reference Range Interpretation Comments Lymphocytes # (test code = Lymphocytes 1.7 1.0-5.5 N #) [facility] HospitalIsntxztRURYJOMCVQ2122-58-00 01:56:00 Test Item Value Reference Range Interpretation Comments Segs-Bands # (test code = Segs-Bands #) 9.2 1.5-8.1 H [facility] HospitalZkmxcghQMQTIZPWEJ2469-74-57 01:56:00 Test Item Value Reference Range Interpretation Comments Monocytes (test code = Monocytes) 8.0 2.0-12.0 N [facility] HospitalCrvhpjwAIYVZWHXUC8101-20-80 01:56:00 Test Item Value Reference Range Interpretation Comments Atypical Lymphs (test code = Atypical 0.0 N Lymphs) [facility] HospitalRjgpdefVWSSPRFQYR8371-40-22 01:56:00 Test Item Value Reference Range Interpretation Comments Plt Morph (test code = Normal (12/28/2012 N Plt Morph) 20:56:00) [facility] CenterDfdutsgERWLLTOSH9580-59-20 01:56:00 Test Item Value Reference Range Interpretation Comments O2 Sat Frankie (test code = O2 Sat Frankie) 84.6 40.0-70.0 H [facility] CenterChazzlhJZAVMDYGF2295-72-75 01:56:00 Test Item Value Reference Range Interpretation Comments Temp Frankie (test code = Temp Frankie) 37.0 [facility] CenterPyyddizVVUFQTDOS6937-21-12 01:56:00 Test Item Value Reference Range Interpretation Comments BE Frankie (test code = -4 See_Comment L [Automa abdelrahman message] The BE Frankie) system which ge nerated this result transmit abdelrahman reference range : <=2. The reference range was not used to interpr et this result as gurpreet l/abnormal. [facility] CenterHhgrqrrDZXPAMMVE5453-65-34 01:56:00 Test Item Value Reference Range Interpretation Comments HCO3 Frankie (test code = HCO3 Frankie) 20 22-26 L [facility] CenterUdofuzpAFOUDMGNJ2561-06-78 01:56:00 Test Item Value Reference Range Interpretation Comments pO2 Frankie (test code = pO2 Frankie) 49 20-49 N [facility] CenterKvuhccmLFLKVLZKP2187-53-16 01:56:00 Test Item Value Reference Range Interpretation Comments pH Frankie (test code = pH Frankie) 7.41 7.28-7.42 N [facility] CenterLgbtzwiYJQMFJENO8576-23-31 01:56:00 Test Item Value Reference Range Interpretation Comments pCO2 Frankie (test code = pCO2 Frankie) 31 38-52 L [facility] CenterLjwbogcPSCGLJXQG2454-76-83 01:56:00 Test Item Value Reference Range Interpretation Comments Lactic Acid Lvl (test code = Lactic 4.4 0.5-2.2 H Acid Lvl) [facility] CenterXjaiiacHVYBFIGVY1136-95-20 01:56:00 Test Item Value Reference Range Interpretation Comments Ethanol Lvl (test code = Ethanol Lvl) 79 [facility] CenterLjsxjamZWMUORZAR8966-72-26 01:56:00 Test Item Value Reference Range Interpretation Comments Etoh (%) (test code = Etoh (%)) 0.079 [facility] CenterNqzqtxoWCGTMPVXI9343-42-06 01:56:00 Test Item Value Reference Range Interpretation Comments eGFR (test code = eGFR) 93 [facility] CenterSmdgcliYYLCTJVEB3070-13-31 01:56:00 Test Item Value Reference Range Interpretation Comments BUN (test code = BUN) 6 7-22 L [facility] CenterEqkjuwhRQKNVYWCX8161-95-69 01:56:00 Test Item Value Reference Range Interpretation Comments Creatinine Lvl (test code = Creatinine 1.1 0.5-1.4 N Lvl) [facility] CenterRmdrwzwKFZGMOTAX1766-31-68 01:56:00 Test Item Value Reference Range Interpretation Comments Glucose Lvl (test code = Glucose Lvl) 124 70-99 H [facility] CenterYbneyrgVHHKXPAFW0059-62-05 01:56:00 Test Item Value Reference Range Interpretation Comments Sodium Lvl (test code = Sodium Lvl) 140 135-145 N [facility] CenterIpotfpxNPNSXHVZW7183-08-07 01:56:00 Test Item Value Reference Range Interpretation Comments Chloride Lvl (test code = Chloride Lvl) 103 95-109 N [facility] CenterOepezhlPWXNHNJZT7203-99-56 01:56:00 Test Item Value Reference Range Interpretation Comments CO2 (test code = CO2) 21 24-32 L [facility] CenterTaeuddlGVSSUSILM4314-36-55 01:56:00 Test Item Value Reference Range Interpretation Comments Potassium Lvl (test code = Potassium 3.1 3.5-5.1 L Lvl) [facility] CenterBsyrlwaEYNCNKXXO9039-15-04 01:56:00 Test Item Value Reference Range Interpretation Comments Calcium Lvl (test code = Calcium Lvl) 8.6 8.5-10.5 N [facility] CenterIpglvapXVNOXFKIN0526-64-52 01:56:00 Test Item Value Reference Range Interpretation Comments AGAP (test code = AGAP) 19.1 10.0-20.0 N [facility]EebbvchDIMCYIZPKC2128-16-89 01:56:00 Test Item Value Reference Range Interpretation Comments Estimated % Lysis (test 1.3 See_Comment N [Au tomated message] The code = Estimated % system wh ich generated Lysis) this result tra nsmitted reference range : <=7.5. The reference r annemarie was not used to int erpret this result as normal/abnormal . [facility] HospitalCeexkdkZKIZWPOHEA4868-57-23 01:56:00 Test Item Value Reference Range Interpretation Comments K-time (test code = K-time) 2.2 min 0.6-2.3 N [facility] HospitalLpgysbuNJGHNEQXMT0823-54-59 01:56:00 Test Item Value Reference Range Interpretation Comments Angle (test code = Angle) 64 degrees 64-80 N [facility] HospitalPyrlhemLHAARICCLN2304-29-38 01:56:00 Test Item Value Reference Range Interpretation Comments Max Amp (test code = Max Amp) 58 mm 52-71 N [facility] HospitalLyrpiagUJEYBQIAOQ1768-65-35 01:56:00 Test Item Value Reference Range Interpretation Comments R-time (test code = R-time) 0.8 min 0.4-0.7 H [facility] HospitalCwuhtwdSCKBFXIOFG7056-64-44 01:56:00 Test Item Value Reference Range Interpretation Comments Split Point (test code = Split Point) 0.6 min [facility] HospitalXvinucwLHLRFDXLSK7961-10-50 01:56:00 Test Item Value Reference Range Interpretation Comments Rapid TEG Sample Type Citrated Whole Blood (test code = Rapid TEG Sample Type) [facility] HospitalRkmexyiRVUDCTWZIV1964-16-33 01:56:00 Test Item Value Reference Range Interpretation Comments ACT (TEG) (test code = ACT (TEG)) 121 s 86-118 H [facility] HospitalKiubmxuNHVLPQILYF2365-39-49 01:56:00 Test Item Value Reference Range Interpretation Comments G-value (test code = G-value) 6.9 5.0-11.6 N [facility] HospitalYjgffbuMSRETUUGFH7404-73-69 01:56:00 Test Item Value Reference Range Interpretation Comments Hgb (test code = Hgb) 14.8 14.0-18.0 N [facility] HospitalNfbdpgiTKTFYPJYVX0025-92-20 01:56:00 Test Item Value Reference Range Interpretation Comments RBC (test code = RBC) 5.05 4.70-6.10 N [facility] HospitalOwncbpcVTLMLFWUFK6294-21-42 01:56:00 Test Item Value Reference Range Interpretation Comments Hct (test code = Hct) 44.5 42.0-54.0 N [facility] HospitalTqnofykUZVNHKYIRU5703-12-18 01:56:00 Test Item Value Reference Range Interpretation Comments WBC (test code = WBC) 11.8 3.7-10.4 H [facility] HospitalUlrtiiiRFUJQPETGP7680-31-44 01:56:00 Test Item Value Reference Range Interpretation Comments MPV (test code = MPV) 9.2 7.4-10.4 N [facility] HospitalHyjcygkAHTRMZSJHM8650-78-45 01:56:00 Test Item Value Reference Range Interpretation Comments MCHC (test code = MCHC) 33.2 32.0-36.0 N [facility] HospitalVzivqgaDUSNWGPRTR7873-18-01 01:56:00 Test Item Value Reference Range Interpretation Comments MCV (test code = MCV) 88.1 80.0-94.0 N [facility] HospitalMzccqdxJNBVLKDGIK6762-78-30 01:56:00 Test Item Value Reference Range Interpretation Comments MCH (test code = MCH) 29.3 pg 27.0-31.0 N [facility] HospitalSwrhdjoTKRRENCNAR2628-03-52 01:56:00 Test Item Value Reference Range Interpretation Comments Platelet (test code = Platelet) 175 133-450 N [facility] HospitalVgkwntmAIHAYESBZO9536-45-17 01:56:00 Test Item Value Reference Range Interpretation Comments RDW (test code = RDW) 12.4 11.5-14.5 N [facility] HospitalKqbntufNCNMYDKLTX6959-56-29 01:56:00 Test Item Value Reference Range Interpretation Comments Lymphocytes (test code = Lymphocytes) 14.0 20.0-40.0 L [facility] HospitalRtvvsjpJVGEDPPOXC7157-08-60 01:56:00 Test Item Value Reference Range Interpretation Comments RBC Morph (test code = Normal (12/28/2012 N RBC Morph) 20:56:00) [facility] HospitalYbtjwfiVJWNFZUJTR9896-74-31 01:56:00 Test Item Value Reference Range Interpretation Comments Bands (test code = 6.0 See_Comment N [Automat ed message] The Bands) system which ge nerated this result transmit abdelrahman reference range : <=11.0. The reference r annemarie was not used to interpr et this result as gurpreet l/abnormal. [facility] HospitalUernddnEODZJOLSGG7351-95-87 01:56:00 Test Item Value Reference Range Interpretation Comments Segs (test code = Segs) 72.0 45.0-75.0 N [facility] HospitalNoawfvsWMZYRCRKFX9808-40-67 01:56:00 Test Item Value Reference Range Interpretation Comments Monocytes # (test code 0.9 See_Comment H [Aut omated message] The = Monocytes #) system which generated this result tra nsmitted reference range : <=0.8. The reference r annemarie was not used to int erpret this result as normal/abnormal . [facility] HospitalFghwcfoLJACQIAVLI9513-73-27 01:56:00 Test Item Value Reference Range Interpretation Comments Lymphocytes # (test code = Lymphocytes 1.7 1.0-5.5 N #) [facility] HospitalHxuqenfAUYXUGEIXO9045-73-57 01:56:00 Test Item Value Reference Range Interpretation Comments Segs-Bands # (test code = Segs-Bands #) 9.2 1.5-8.1 H [facility] HospitalQlvuoetGCDFLRNYHP8553-96-80 01:56:00 Test Item Value Reference Range Interpretation Comments Monocytes (test code = Monocytes) 8.0 2.0-12.0 N [facility] HospitalJrpsbtpOEVGIWBRWU4991-89-64 01:56:00 Test Item Value Reference Range Interpretation Comments Atypical Lymphs (test code = Atypical 0.0 N Lymphs) [facility] HospitalVuzoedrUJNDKJXEHH0659-39-50 01:56:00 Test Item Value Reference Range Interpretation Comments Plt Morph (test code = Normal (12/28/2012 N Plt Morph) 20:56:00) [facility]
[2022-06-24 20:48] LABS: Absolute Lymphocytes (CBC) 1.1 K/uL (0.7-4.9); Hematocrit 43.9 % (39.6-49.0); MCV 87.1 fL (80-100); MPV 8.4 fL (7.6-11.3); RBC Red Blood Cell Count 5.04 M/uL (4.33-5.43)
[2022-06-24] MEDS ORDERED: NA CHLORIDE 0.9% 1,000 ML ONE (21:05)
[2022-06-24 21:06] LABS: Protime INR 1.03
[2022-06-24 21:11] LABS: ALT/SGPT 32 U/L (16-61); AST/SGOT 26 U/L (15-37); Albumin 4.3 g/dL (3.4-5.0); Alkaline Phosphatase 52 U/L (45-117); BUN Blood Urea Nitrogen 6 mg/dL (7-18); Bicarbonate 26 mmol/L (21-32); Bilirubin Direct 0.1 mg/dL (0-0.2); Bilirubin Total 0.3 mg/dL (0.2-1.0); Glomerular Filtration Rate 87 ml/min (=/>90); Glucose Level 88 mg/dL (74-106); Potassium 3.9 mmol/L (3.5-5.1); Protein, Total 7.9 g/dL (6.4-8.2); Sodium Level 136 mmol/L (136-145)
--- NOTE | 2022-06-24 21:32 | ER ---
Nurse's Notes [facility] Name: Alex Abbott Age: 32 yrs Sex: Male : 1990 Arrival Date: 06/24/2022 Time: 19:46 Bed 16 Private MD: Diagnosis: Adverse effect of other drugs, medicaments and biological substances, initial encounter Presentation: 06/24 19:57 Chief complaint: Parent and/or Guardian states: drank unknown amount of cough syrup and lg3 is now hallucinating, eating raw hamburger meat and not making much sense. Coronavirus screen: Client denies travel out of the [place] in the last 14 days. At this time, the client does not indicate any symptoms associated with coronavirus-19. Ebola Screen: No symptoms or risks identified at this time. Initial Sepsis Screen: Does the patient meet any 2 criteria? No. Patient's initial sepsis screen is negative. Does the patient have a suspected source of infection? No. Patient's initial sepsis screen is negative. Risk Assessment: Do you want to hurt yourself or someone else? Patient reports no desire to harm self or others. Onset of symptoms is unknown. 19:57 Method Of Arrival: Ambulatory lg3 19:57 Acuity: ROCIO 2 lg3 Triage Assessment: 19:59 General: Appears in no apparent distress. comfortable, Behavior is inappropriate for lg3 age. Pain: Denies pain. EENT: No deficits noted. No signs and/or symptoms were reported regarding the EENT system. Neuro: Level of Consciousness is awake, stuporous, Oriented to person. Cardiovascular: No deficits noted. Denies chest pain, shortness of breath. Respiratory: No deficits noted. Airway is patent Trachea midline Respiratory effort is even, unlabored, Respiratory pattern is regular, symmetrical. GI: No deficits noted. No signs and/or symptoms were reported involving the gastrointestinal system. : No deficits noted. No signs and/or symptoms were reported regarding the genitourinary system. Derm: No deficits noted. No signs and/or symptoms reported regarding the dermatologic system. Skin is intact, is healthy with good turgor, Skin is dry, Skin is normal. Musculoskeletal: No deficits noted. No signs and/or symptoms reported regarding the musculoskeletal system. Circulation, motion, and sensation intact. Range of motion: intact in all extremities. Historical: - Allergies: 19:59 Unable to obtain; lg3 - Home Meds: 19:59 Unable to obtain [Active]; lg3 - PMHx: 19:59 Schizophrenia; lg3 - PSHx: 19:59 arm surgery; lg3 - Immunization history:: Adult Immunizations unknown. - Social history:: Smoking status: Patient reports the use of cigarette tobacco products, Patient uses alcohol. Screenin:42 [facility] ED Fall Risk Assessment (Adult) History of falling in the last 3 months, ke1 including since admission No falls in past 3 months (0 pts) Confusion or Disorientation No (0 pts) Intoxicated or Sedated No (0 pts) Impaired Gait No (0 pts) Mobility Assist Device Used No (0 pt) Altered Elimination No (0 pt) Score/Fall Risk Level 0 - 2 = Low Risk. Abuse screen: Denies threats or abuse. Nutritional screening: No deficits noted. Tuberculosis screening: No symptoms or risk factors identified. Assessment: 20:41 General: Appears unkempt, Behavior is restless. ke1 21:13 General: Appears in no apparent distress. Neuro: Level of Consciousness is awake, mb9 alert, obeys commands, Oriented to person, place, situation. 21:13 Reassessment: pt states "I want to leave. I don't need to be here." NICOLE, Page, at mb9 bedside speaking to pt and removing pts IV. 21:20 General: notified PD of pt eloping against provider recommendation. Provider concerned lg3 with PT being a threat to himself or others and requested JORDI. . 21:28 Reassessment: PD called and said patient is not a risk to himself of others and they vc1 feel he does not need to return to the ER. Overdose: 20:42 [place] Suicide Severity Screening: "In the past month, have you wished you were ke1 or wished you could go to sleep and not wake up?" Patient responds "no." "In the past month, have you actually had any thoughts of killing yourself?" Patient responds "no." "In your lifetime, have you ever done anything, started to do anything, or prepared to do anything to end your life?" Patient responds "no.". 20:43 [place] Suicide Severity Screening: "In the past month, have you wished you were ke1 or wished you could go to sleep and not wake up?" Patient responds "no." "In the past month, have you actually had any thoughts of killing yourself?" Patient responds "no." "In your lifetime, have you ever done anything, started to do anything, or prepared to do anything to end your life?" Patient responds "no.". Vital Signs: 19:57 BP 160 / 122; Pulse 119; Resp 19 S; Temp 98.7(O); Pulse Ox 98% on R/A; Weight 77.11 kg lg3 (R); Height 5 ft. 11 in. (180.34 cm) (R); 19:57 Body Mass Index 23.71 (77.11 kg, 180.34 cm) lg3 ED Course: 19:46 Patient arrived in ED. rg4 19:59 Triage completed. lg3 19:59 Arm band placed on right wrist. lg3 20:01 Roshan Wilson PA is PHCP. cp 20:01 Troy Lopes MD is Attending Physician. cp 20:23 Suellen Melendez, VINCENT is Primary Nurse. ke1 20:42 Inserted saline lock: 20 gauge in right antecubital area, using aseptic technique. ke1 20:43 Bed in low position. Call light in reach. ke1 21:13 IV discontinued, intact, bleeding controlled, No redness/swelling at site. mb9 21:39 No provider procedures requiring assistance completed. ke1 Administered Medications: 21:02 Not Given (Patient Refused): NS 0.9% 1000 ml IV at 1 bolus Per protocol; 1000 mL bolus mb9 Medication: 21:13 VIS not applicable for this client. mb9 Outcome: 21:32 Discharge ordered by . cp 21:39 Patient left the ED. ke1 Signatures: Roshan Wilson PA PA cp Garcia, Rubi rg4 Alison Willis RN RN lg3 Mirta Peterson RN RN 1 Suellen Melendez RN RN ke1 Katlyn Matta RN RN mb9 Corrections: (The following items were deleted from the chart) 20:44 20:42 [place] Suicide Severity Screening: "In the past month, have you wished you were ke1 or wished you could go to sleep and not wake up?" Patient responds "no." Patient responds "yes." Based off client's responses, additional C-SSRS screening questions required. "In the past month, have you actually had any thoughts of killing yourself?" Patient responds "no." "In your lifetime, have you ever done anything, started to do anything, or prepared to do anything to end your life?" Patient responds "no." ke1 21:19 21:13 Neuro: Level of Consciousness is awake, alert, obeys commands, Oriented to mb9 person, place, time, situation, mb9
--- NOTE | 2022-06-24 21:32 | EDPHYS ---
Physician Documentation [facility] Name: Alex Abbott Age: 32 yrs Sex: Male : 1990 Arrival Date: 06/24/2022 Time: 19:46 Bed 16 Private MD: ED Physician Troy Lopes HPI: 06/24 20:55 This 32 yrs old Male presents to ER via Ambulatory with complaints of Overdose. cp 20:55 The patient presents to the emergency department with a possible overdose, OTC cough cp syrup. 20:55 Associated signs and symptoms: Pertinent negatives: auditory hallucinations, visual cp hallucinations, suicidal and/or homicidal ideations. 20:55 Patient brought to ED reportedly by unknown family members after reportedly consuming cp unknown quantity of cough syrup. Historical: - Allergies: 19:59 Unable to obtain; lg3 - Home Meds: 19:59 Unable to obtain [Active]; lg3 - PMHx: 19:59 Schizophrenia; lg3 - PSHx: 19:59 arm surgery; lg3 - Immunization history:: Adult Immunizations unknown. - Social history:: Smoking status: Patient reports the use of cigarette tobacco products, Patient uses alcohol. ROS: 21:00 Constitutional: Negative for fever. cp 21:00 Cardiovascular: Negative for chest pain. cp 21:00 Respiratory: Negative for shortness of breath, wheezing. 21:00 Abdomen/GI: Negative for vomiting, diarrhea, constipation. 21:00 Neuro: Negative for headache, loss of consciousness. cp 21:00 All other systems are negative. cp Exam: 21:05 Constitutional: The patient appears in no acute distress, alert, awake, cp non-diaphoretic, non-toxic, well developed, well nourished. 21:05 Head/Face: Normocephalic, atraumatic. cp 21:05 Eyes: Pupils: constricted, bilaterally, Extraocular movements: intact throughout, Conjunctiva: normal, no exudate, no injection, Sclera: no appreciated abnormality, Lids and lashes: appear normal, bilaterally. 21:05 ENT: External ear(s): are unremarkable, Nose: is normal, Mouth: Lips: moist, Oral mucosa: moist, Posterior pharynx: Airway: no evidence of obstruction, patent. 21:05 Chest/axilla: Inspection: normal. 21:05 Cardiovascular: Rate: tachycardic, Rhythm: regular. 21:05 Respiratory: the patient does not display signs of respiratory distress, Respirations: normal, no use of accessory muscles, no retractions, labored breathing, is not present, Breath sounds: are clear throughout, no decreased breath sounds, no stridor, no wheezing. 21:05 Abdomen/GI: Inspection: abdomen appears normal, Palpation: abdomen is soft and non-tender, in all quadrants. 21:05 Neuro: Orientation: to person, situation, Mentation: able to follow commands, slow to respond, Motor: moves all fours, Gait: is steady. 21:05 Psych: Behavior/mood is cooperative, Affect is calm, Patient has no thoughts/intents to harm self or others. Judgement / Insight is impaired. Delusions/hallucinations are not present. Vital Signs: 19:57 BP 160 / 122; Pulse 119; Resp 19 S; Temp 98.7(O); Pulse Ox 98% on R/A; Weight 77.11 kg lg3 (R); Height 5 ft. 11 in. (180.34 cm) (R); 19:57 Body Mass Index 23.71 (77.11 kg, 180.34 cm) lg3 MDM: 20:06 Patient medically screened. cp 21:15 Data reviewed: vital signs, nurses notes. cp 21:15 Consideration of Admission/Observation Escalation of care including cp admission/observation considered. ED course: Patient left ED w/o assistance. Law enforcement contacted due to concern patient is under the influence of OTC meds. Law enforcement reports patient is capable of decision making and has not made threats to harm self and/or others. 06/24 20:06 Order name: Acetaminophen cp 06/24 20:06 Order name: Basic Metabolic Panel cp 06/24 20:06 Order name: CBC with Diff; Complete Time: 20:55 cp 06/24 20:06 Order name: ETOH Level cp 06/24 20:06 Order name: Hepatic Function cp 06/24 20:06 Order name: PT-INR cp 06/24 20:06 Order name: Ptt, Activated cp 06/24 20:06 Order name: Salicylate cp 06/24 20:06 Order name: EKG; Complete Time: 20:07 cp 06/24 20:06 Order name: IV Saline Lock; Complete Time: 20:45 cp 06/24 20:06 Order name: Labs collected and sent; Complete Time: 20:45 cp 06/24 20:06 Order name: Suicide Screening ([place]); Complete Time: 20:45 cp Administered Medications: 21:02 Not Given (Patient Refused): NS 0.9% 1000 ml IV at 1 bolus Per protocol; 1000 mL bolus mb9 Disposition Summary: 06/24/22 21:32 Discharge Ordered Location: Home cp Problem: new cp Symptoms: are unchanged cp Condition: Stable cp Diagnosis - Adverse effect of other drugs, medicaments and biological substances, initial cp encounter Followup: cp - With: Emergency Department - When: As needed - Reason: Worsening of condition Discharge Instructions: - Discharge Summary Sheet cp - Prescription Drug Misuse Information cp - Preventing Eokc-wyr-Hdfcddk Drug Misuse cp Forms: - Medication Reconciliation Form cp - Thank You Letter cp - Antibiotic Education cp - Prescription Opioid Use cp Signatures: Dispatcher [employer] EDMS Roshan Wilson PA PA cp Alison Willis RN RN lg3 Katlyn Matta RN mb9 Corrections: (The following items were deleted from the chart) 21:03 20:06 EKG - Nurse/Tech ordered. cp mb9
[2022-06-24 22:18] VITALS: BP 160/122; TEMP 98.7; O2SAT 98
== END 2022-06-24 21:39 | disposition home or self-care (01) ==
LOC: MERGE 19:43 → ER 19:43
DX: T50.991A Poisoning by other drugs, medicaments and biological substances, accidental (unintentional), initial encounter (principal); T50.995A Adverse effect of other drugs, medicaments and biological substances, initial encounter; Z72.0 Tobacco use; F20.9 Schizophrenia, unspecified
CPT/HCPCS: 85025; 80048; 36415; 85610; 80076; 85730; 99282; J7030; G0480 ×3

== ENCOUNTER 2022-06-25 18:41 | Emergency (ER) | payer OTHER ==
[2022-06-25] MEDS ORDERED: NA CHLORIDE 0.9% 1,000 ML ONE (19:29)
[2022-06-25] MEDS ORDERED: D10W 250 ML IV ONE (19:30)
--- OUTSIDE RECORDS SUMMARY | 2022-06-25 19:32 | XMS REPORT | Continuity of Care Document ---
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 05/12/18 22:07:00 [employer], 1.63, m2 NS 1,000 mL 2017-05 No 1,000 mL, M emoria 2-14 Rate: 100 l 04:08: ml/hr, [place] 00 Infuse over: 10 hr, Route: IV, Dosing Weight 54.091 kg, Total Volume: 1,000, Start date: 04/12/18 22:08:00 [employer], Duration: 30 day, Stop date: 05/12/18 22:07:00 [employer], 1.63, m2 Potassium 2017-05 No Notes: [facility] a Chloride 2-14 (Same as: l 04:02: KCL) [place] 00 Infuse no faster than 10 mEq/hr [...] phosphate 2-14 (Same as: l 04:02: K [place] 00 Phosphate. ) Do not infuse phosphorou [...] Oxide 2-14 (Same as: l 04:02: Mag-Ox [place] 00 400) Magnesium oxide 201pl=229i g elemental magnesium Dose=____m g magnesium oxide (___mg elemental magnesium) Calcium 2017-05 No Notes: [facility] Carbonate 2-14 (Same As: l 500 MG 04:02: Tums) [place] Chewable 00 Calcium Tablet Carbonate 500 mg = 200 mg elemental calcium Dose = mg calcium carbonate ( mg elemental calcium) Saline 2017-05 No Notes: [facility] Flush 0.9% 2-14 Same as: l 04:02: BD [place] 00 Posiflush Sterile Acetaminoph 2017-05 No Notes: Do M emoria en 2-14 not exceed l 04:02: 4 gm/day. [place] 00 (Same as: Tylenol) Nystatin 2017-05 No [...] phosphate 2-14 Infuse l 04:02: over 4 [place] 00 hour. Do not infuse phosphorou s [...] WASTE: F/P l 04:02: - Sink; E [place] - [facility] Trash Bin Magnesium 2017-05 No Notes: [facility] a Oxide 2-14 (Same as: l 04:02: Mag-Ox [place] 00 400) Magnesium oxide 993dh=167j g elemental magnesium Dose=____m g magnesium oxide (___mg elemental magnesium) Calcium 2017-05 No Notes: [facility] Carbonate 2-14 (Same As: l 500 MG 04:02: Tums) [place] Chewable 00 Calcium Tablet Carbonate 500 mg = 200 mg elemental calcium Dose = mg calcium carbonate ( mg elemental calcium) Saline 2017-05 No Notes: [facility] Flush 0.9% 2-14 Same as: l 04:02: BD [place] 00 Posiflush Sterile Acetaminoph 2017-05 No Notes: Do M emoria en 2-14 not exceed l 04:02: 4 gm/day. [place] 00 (Same as: Tylenol) Nystatin 2017-05 No [...] phosphate 2-14 Infuse l 04:02: over 4 [place] 00 hour. Do not infuse phosphorou s concurrent ly in the same line as TPN or IVF that contains calcium. For double lumen central lines, phosphorou s may be infused in a separate lumen from TPN. potassium 2017-05 No Notes: [facility] a phosphate 2-14 (Same as: l 04:02: K [place] 00 Phosphate. ) Do not infuse phosphorou [...] 04:02: Mag-Ox [place] 00 400) Magnesium oxide 617tb=047f g elemental magnesium Dose=____m g magnesium oxide [...] 2-14 not exceed l 04:02: 4 gm/day. [place] 00 (Same as: Tylenol) Nystatin 2017-05 No [...] phosphate 2-14 Infuse l 04:02: over 4 [place] 00 hour. Do not infuse phosphorou s concurrent ly in the same line as TPN or IVF that contains calcium. For double lumen central lines, phosphorou s may be infused in a separate lumen from TPN. potassium 2017-05 No Notes: [facility] a phosphate 2-14 (Same as: l 04:02: K [place] 00 Phosphate. ) Do not infuse phosphorou s concurrent ly in the same line as TPN or IVF that contains calcium. For double lumen central lines, phosphorou s may be infused in a separate lumen from TPN. 1 mMol phoshate has 1.47 mEq potassium Infuse over 4 hours Magnesium 2017-05 No Notes: [facility] a Sulfate 2-14 WASTE: F/P l 04:02: - Sink; E [place] - [facility] Trash Bin potassium 2017-05 No Notes: [facility] a phosphate-s 2-14 (Same as: l odium 04:02: Phos-NaK) [place] phosphate 00 Each 1.5 250 mg-280 gm pkt has mg-160 mg 250mg oral powder phosphorou for s. Mix reconstitut w/2.5oz ion water and stir. Calcium 2017-05 No Notes: [facility] Gluconate 2-14 WASTE: F/P l 04:02: - Sink; E [place] - [facility] Trash Bin Magnesium 2017-05 No Notes: [facility] a Oxide 2-14 (Same as: l 04:02: Mag-Ox [place] 00 400) Magnesium oxide 987oe=681v g elemental magnesium Dose=____m g magnesium oxide (___mg elemental magnesium) Calcium 2017-05 No Notes: [facility] Carbonate 2-14 (Same As: l 500 MG 04:02: Tums) [place] Chewable 00 Calcium Tablet Carbonate 500 mg = 200 mg elemental calcium Dose = mg calcium carbonate ( mg elemental calcium) Saline 2017-05 No Notes: [facility] Flush 0.9% 2-14 Same as: l 04:02: BD [place] 00 Posiflush Sterile Acetaminoph 2017-05 No Notes: Do M emoria en 2-14 not exceed l 04:02: 4 gm/day. [place] 00 (Same as: Tylenol) Nystatin 2017-05 No Notes: [facility] 100 UNT/MG 2-14 (Same l Topical 04:02: as:Mycosta Herm boaz Powder 00 tin, Nilstat) For external use only. Potassium 2017-05 No Notes: [facility] a Chloride 2-14 (Same as: l 04:02: KCL) [place] 00 Infuse no faster than 10 mEq/hr if given peripheral ly. sodium 2017-05 No Notes: [facility] phosphate 2-14 Infuse l 04:02: over 4 [place] 00 hour. Do not infuse phosphorou s [...] WASTE: F/P l 04:02: - Sink; E [place] 00 - [facility] Trash Bin potassium 2017-05 No Notes: [facility] a phosphate-s 2-14 (Same as: l odium 04:02: Phos-NaK) [place] phosphate 00 Each 1.5 250 mg-280 gm pkt has mg-160 mg 250mg oral powder phosphorou for s. Mix reconstitut w/2.5oz ion water and stir. Calcium 2017-05 No Notes: [facility] Gluconate 2-14 WASTE: F/P l 04:02: - Sink; E [place] 00 - [facility] Trash Bin Magnesium 2017-05 No Notes: [facility] a Oxide 2-14 (Same as: l 04:02: Mag-Ox [place] 00 400) Magnesium oxide 481vb=889c g elemental magnesium Dose=____m g magnesium oxide (___mg elemental magnesium) Calcium 2017-05 No Notes: [facility] Carbonate 2-14 (Same As: l 500 MG 04:02: Tums) [place] Chewable 00 Calcium Tablet Carbonate 500 mg = 200 mg elemental calcium Dose = mg calcium carbonate ( mg elemental calcium) Saline 2017-05 No Notes: [facility] Flush 0.9% 2-14 Same as: l 04:02: BD [place] 00 Posiflush Sterile Acetaminoph 2017-05 No Notes: Do M emoria en 2-14 not exceed l 04:02: 4 gm/day. [place] 00 (Same as: Tylenol) Nystatin 2017-05 No Notes: [facility] 100 UNT/MG 2-14 (Same l Topical 04:02: as:Mycosta Herm boaz Powder 00 tin, Nilstat) For external use only. Potassium 2017-05 No Notes: [facility] a Chloride 2-14 (Same as: l 04:02: KCL) [place] 00 Infuse no faster than 10 mEq/hr if given peripheral ly. sodium 2017-05 No Notes: [facility] phosphate 2-14 Infuse l 04:02: over 4 [place] 00 hour. Do not infuse phosphorou s concurrent ly in the same line as TPN or IVF that contains calcium. For double lumen central lines, phosphorou s may be infused in a separate lumen from TPN. potassium 2017-05 No Notes: [facility] a phosphate 2-14 (Same as: l 04:02: K [place] 00 Phosphate. ) Do not infuse phosphorou s concurrent ly in the same line as TPN or IVF that contains calcium. For double lumen central lines, phosphorou s may be infused in a separate lumen from TPN. 1 mMol phoshate has 1.47 mEq potassium Infuse over 4 hours Magnesium 2017-05 No Notes: [facility] a Sulfate 2-14 WASTE: F/P l 04:02: - Sink; E [place] 00 - [facility] Trash Bin potassium 2017-05 No Notes: [facility] a phosphate-s 2-14 (Same as: l odium 04:02: Phos-NaK) [place] phosphate 00 Each 1.5 250 mg-280 gm pkt has mg-160 mg 250mg oral powder phosphorou for s. Mix reconstitut w/2.5oz ion water and stir. Calcium 2017-05 No Notes: [facility] Gluconate 2-14 WASTE: F/P l 04:02: - Sink; E [place] - [facility] Trash Bin Magnesium 2017-05 No Notes: [facility] a Oxide 2-14 (Same as: l 04:02: Mag-Ox [place] 00 400) Magnesium oxide [id number]=[id number] g elemental magnesium Dose=____m g magnesium oxide (___mg elemental magnesium) Calcium 2017-05 No Notes: [facility] Carbonate 2-14 (Same As: l 500 MG 04:02: Tums) [place] Chewable 00 Calcium Tablet Carbonate 500 mg [...] Chloride 2-14 (Same as: l 04:02: KCL) [place] 00 Infuse no faster than 10 mEq/hr [...] WASTE: F/P l 04:02: - Sink; E [place] 00 - [facility] Trash Bin potassium 2017-05 No Notes: [facility] a phosphate-s 2-14 (Same as: l odium 04:02: Phos-NaK) [place] phosphate 00 Each 1.5 250 mg-280 gm pkt has mg-160 mg 250mg oral powder phosphorou for s. Mix reconstitut w/2.5oz ion water and stir. Calcium 2017-05 No Notes: [facility] Gluconate 2-14 WASTE: F/P l 04:02: - Sink; E [place] - [facility] Tr[facility] Magnesium 2017-05 No Notes: [facility] a Oxide 2-14 (Same as: l 04:02: Mag-Ox [place] 00 400) Magnesium oxide 640jo=486b g elemental magnesium Dose=____m g magnesium oxide (___mg elemental magnesium) Calcium 2017-05 No Notes: [facility] Carbonate 2-14 (Same As: l 500 MG 04:02: Tums) [place] Chewable 00 Calcium Tablet Carbonate 500 mg = 200 mg elemental calcium Dose = mg calcium carbonate ( mg elemental calcium) Saline 2017-05 No Notes: [facility] Flush 0.9% 2-14 Same as: l 04:02: BD [place] 00 Posiflush Sterile Acetaminoph 2017-05 No Notes: Do M emoria en 2-14 not exceed l 04:02: 4 gm/day. [place] 00 (Same as: Tylenol) Nystatin 2017-05 No [...] phosphate 2-14 Infuse l 04:02: over 4 [place] 00 hour. Do not infuse phosphorou s [...] Oxide 2-14 (Same as: l 04:02: Mag-Ox [place] 00 400) Magnesium oxide 302el=723w g elemental magnesium Dose=____m g magnesium oxide (___mg elemental magnesium) Calcium 2017-05 No Notes: [facility] Carbonate 2-14 (Same As: l 500 MG 04:02: Tums) [place] Chewable 00 Calcium Tablet Carbonate 500 mg = 200 mg elemental calcium Dose = mg calcium carbonate ( mg elemental calcium) Saline 2017-05 No Notes: [facility] Flush 0.9% 2-14 Same as: l 04:02: BD [place] 00 Posiflush Sterile Acetaminoph 2017-05 No Notes: Do M emoria en 2-14 not exceed l 04:02: 4 gm/day. [place] 00 (Same as: Tylenol) Nystatin 2017-05 No [...] phosphate 2-14 (Same as: l 04:02: K [place] 00 Phosphate. ) Do not infuse phosphorou [...] 2-14 (Same as: l odium 04:02: Phos-NaK) [place] phosphate 00 Each 1.5 250 mg-280 gm pkt has mg-160 mg 250mg oral powder phosphorou for s. Mix reconstitut w/2.5oz ion water and stir. Calcium 2017-05 No Notes: [facility] Gluconate 2-14 WASTE: F/P l 04:02: - Sink; E [place] - [facility] Tr[facility] Magnesium 2017-05 No Notes: [facility] a Oxide 2-14 (Same as: l 04:02: Mag-Ox [place] 00 400) Magnesium oxide 651en=703b g elemental magnesium Dose=____m g magnesium oxide (___mg elemental magnesium) Calcium 2017-05 No Notes: [facility] Carbonate 2-14 (Same As: l 500 MG 04:02: Tums) [place] Chewable 00 Calcium Tablet Carbonate 500 mg = 200 mg elemental calcium Dose = mg calcium carbonate ( mg elemental calcium) Saline 2017-05 No Notes: [facility] Flush 0.9% 2-14 Same as: l 04:02: BD [place] 00 Posiflush Sterile Acetaminoph 2017-05 No Notes: [...] Weight 54.091, kg, Start date: 04/12/18 21:26:00 [employer], Stop date: 04/12/18 21:26:00 [employer] Keppra 2017-05 No 1,000 mg, [facility] a 2-14 Route: l 03:26: IVPB, [place] 00 ONCE, Dosing Weight 54.091, kg, Start date: 04/12/18 21:26:00 [employer], Stop date: 04/12/18 21:26:00 [employer] Keppra 2017- No 1,000 mg, [facility] a 2-14 Route: l 03:26: IVPB, [place] 00 ONCE, Dosing Weight 54.091, kg, Start date: 04/12/18 21:26:00 [employer], Stop date: 04/12/18 21:26:00 [employer] Keppra 2017-05 No 1,000 mg, [facility] a 2-14 Route: l 03:26: IVPB, [place] 00 ONCE, Dosing Weight 54.091, kg, Start date: 04/12/18 21:26:00 [employer], Stop date: 04/12/18 21:26:00 [employer] Keppra 2017-05 No 1,000 mg, [facility] a 2-14 Route: l 03:26: IVPB, [place] 00 ONCE, Dosing Weight 54.091, kg, Start date: 04/12/18 21:26:00 [employer], Stop date: 04/12/18 21:26:00 [employer] Keppra 2018-1 No 1,000 mg, [facility] a 2-14 Route: l 03:26: IVPB, [place] 00 ONCE, Dosing Weight 54.091, kg, Start date: 04/12/18 21:26:00 [employer], Stop date: 04/12/18 21:26:00 [employer] Keppra 2018-1 No 1,000 mg, [facility] a 2-14 Route: l 03:26: IVPB, [place] 00 ONCE, Dosing Weight 54.091, kg, Start date: 04/12/18 21:26:00 [employer], Stop date: 04/12/18 21:26:00 [employer] Keppra 2018-1 No 1,000 mg, [facility] a 2-14 Route: l 03:26: IVPB, [place] 00 ONCE, Dosing Weight 54.091, kg, Start date: 04/12/18 21:26:00 [employer], Stop date: 04/12/18 21:26:00 [employer] Keppra 2018-1 No 1,000 mg, [facility] a 2-14 Route: l 03:26: IVPB, [place] 00 ONCE, Dosing Weight 54.091, kg, Start date: 04/12/18 21:26:00 [employer], Stop date: 04/12/18 21:26:00 [employer] acetaminoph 2017-05 No Notes: Do M emoria en-codeine 2-14 not exceed l #3 02:03: 4gm/day of [place] 00 acetaminop hen. (Same as: Tylenol with Codeine # 3) acetaminoph 2017-05 No Notes: Do M em[place] en-codeine 2-14 not exceed l #3 02:03: 4gm/day of [place] 00 acetaminop hen. (Same as: Tylenol with Codeine # 3) acetaminoph 2017-05 No Notes: Do M em[facility] en-codeine 2-14 not exceed l #3 02:03: 4gm/day of [place] 00 acetaminop hen. (Same as: Tylenol with Codeine # 3) acetaminoph 2017-05 No Notes: Do M em[facility] en-codeine 2-14 not exceed l #3 02:03: 4gm/day of [place] 00 acetaminop hen. (Same as: Tylenol with Codeine # 3) acetaminoph 2017-05 No Notes: Do M em[facility] en-codeine 2-14 not exceed l #3 02:03: 4gm/day of [place] 00 acetaminop hen. (Same as: Tylenol with Codeine # 3) acetaminoph 2017-05 No Notes: Do M em[facility] en-codeine 2-14 not exceed l #3 02:03: 4gm/day of [place] 00 acetaminop hen. (Same as: Tylenol with Codeine # 3) acetaminoph 2017-05 No Notes: Do M em[facility] en-codeine 2-14 not exceed l #3 02:03: 4gm/day of [place] 00 acetaminop hen. (Same as: Tylenol with Codeine # 3) acetaminoph 2017-05 No Notes: Do M em[facility] en-codeine 2-14 not exceed l #3 02:03: 4gm/day of [place] 00 acetaminop hen. (Same as: Tylenol with Codeine # 3) acetaminoph 2017-05 No Notes: Do M em[facility] en-codeine 2-14 not exceed l #3 02:03: 4gm/day of [place] 00 acetaminop hen. (Same as: Tylenol with Codeine # 3) Sodium 2017-05 No 1,000 mL, [facility] a Chloride 2-14 Infuse l 0.9% 00:47: Over: 1 [place] (Bolus) IV 00 hr, Route: IV, ONCE, Priority: STAT, Dosing Weight 54.091 kg, Start date: 04/12/18 18:47:00 [employer], Stop date: 04/12/18 18:47:00 [employer] Sodium 2017-05 No 1,000 mL, [facility] Chloride 2-14 Infuse l 0.9% 00:47: Over: 1 [place] (Bolus) IV 00 hr, Route: IV, ONCE, Priority: STAT, Dosing Weight 54.091 kg, Start date: 04/12/18 18:47:00 [employer], Stop date: 04/12/18 18:47:00 [employer] Sodium 2018- No 1,000 mL, [facility] Chloride 2-14 Infuse l 0.9% 00:47: Over: 1 [place] (Bolus) IV 00 hr, Route: IV, ONCE, Priority: STAT, Dosing Weight 54.091 kg, Start date: 04/12/18 18:47:00 [employer], Stop date: 04/12/18 18:47:00 [employer] Sodium 2018-1 No 1,000 mL, [facility] Chloride 2-14 Infuse l 0.9% 00:47: Over: 1 [place] (Bolus) IV 00 hr, Route: IV, ONCE, Priority: STAT, Dosing Weight 54.091 kg, Start date: 04/12/18 18:47:00 [employer], Stop date: 04/12/18 18:47:00 [employer] Sodium 2018-1 No 1,000 mL, [facility] Chloride 2-14 Infuse l 0.9% 00:47: Over: 1 [place] (Bolus) IV 00 hr, Route: IV, ONCE, Priority: STAT, Dosing Weight 54.091 kg, Start date: 04/12/18 18:47:00 [employer], Stop date: 04/12/18 18:47:00 [employer] Sodium 2018-1 No 1,000 mL, [facility] Chloride 2-14 Infuse l 0.9% 00:47: Over: 1 [place] (Bolus) IV 00 hr, Route: IV, ONCE, Priority: STAT, Dosing Weight 54.091 kg, Start date: 04/12/18 18:47:00 [employer], Stop date: 04/12/18 18:47:00 [employer] Sodium 2018-1 No 1,000 mL, [facility] Chloride 2-14 Infuse l 0.9% 00:47: Over: 1 [place] (Bolus) IV 00 hr, Route: IV, ONCE, Priority: STAT, Dosing Weight 54.091 kg, Start date: 04/12/18 18:47:00 [employer], Stop date: 04/12/18 18:47:00 [employer] Sodium 2018-1 No 1,000 mL, [facility] Chloride 2-14 Infuse l 0.9% 00:47: Over: 1 [place] (Bolus) IV 00 hr, Route: IV, ONCE, Priority: STAT, Dosing Weight 54.091 kg, Start date: 04/12/18 18:47:00 [employer], Stop date: 04/12/18 18:47:00 [employer] Sodium 2018-1 No 1,000 mL, [facility] Chloride 2-14 Infuse l 0.9% 00:47: Over: 1 [place] (Bolus) IV 00 hr, Route: IV, ONCE, Priority: STAT, Dosing Weight 54.091 kg, Start date: 04/12/18 18:47:00 [employer], Stop date: 04/12/18 18:47:00 [employer] Ibuprofen 2017-0 No 600 mg, [facility] ia 1- Route: PO, l 05:32: Drug form: [place] 00 TAB, ONCE, Dosing Weight 54.545, kg, Priority: STAT, Start date: 04/30/16 23:32:00 [employer], Stop date: 04/30/16 23:32:00 [employer] Ibuprofen 2017-0 No 600 mg, [facility] 1- Route: PO, l 05:32: Drug form: [place] 00 TAB, ONCE, Dosing Weight 54.545, kg, Priority: STAT, Start date: 04/30/16 23:32:00 [employer], Stop date: 04/30/16 23:32:00 [employer] Ibuprofen 2017-0 No 600 mg, [facility] 1- Route: PO, l 05:32: Drug form: [place] 00 TAB, ONCE, Dosing Weight 54.545, kg, Priority: STAT, Start date: 04/30/16 23:32:00 [employer], Stop date: 04/30/16 23:32:00 [employer] Ibuprofen 2017-0 No 600 mg, [facility] - Route: PO, l 05:32: Drug form: [place] 00 TAB, ONCE, Dosing Weight 54.545, kg, Priority: STAT, Start date: 04/30/16 23:32:00 [employer], Stop date: 04/30/16 23:32:00 [employer] Ibuprofen 2017-0 No 600 mg, [facility] 1- Route: PO, l 05:32: Drug form: [place] 00 TAB, ONCE, Dosing Weight 54.545, kg, Priority: STAT, Start date: 04/30/16 23:32:00 [employer], Stop date: 04/30/16 23:32:00 [employer] Ibuprofen 2017-0 No 600 mg, [facility] 1- Route: PO, l 05:32: Drug form: [place] 00 TAB, ONCE, Dosing Weight 54.545, kg, Priority: STAT, Start date: 04/30/16 23:32:00 [employer], Stop date: 04/30/16 23:32:00 [employer] Ibuprofen 2017-0 No 600 mg, [facility] 1- Route: PO, l 05:32: Drug form: [place] 00 TAB, ONCE, Dosing Weight 54.545, kg, Priority: STAT, Start date: 04/30/16 23:32:00 [employer], Stop date: 04/30/16 23:32:00 [employer] Ibuprofen 2017-0 No 600 mg, [facility] 1- Route: PO, l 05:32: Drug form: [place] 00 TAB, ONCE, Dosing Weight 54.545, kg, Priority: STAT, Start date: 04/30/16 23:32:00 [employer], Stop date: 04/30/16 23:32:00 [employer] Ibuprofen 2017-0 No 600 mg, [facility] 05-01 Route: PO, l 05:32: Drug form: [place] 00 TAB, ONCE, Dosing Weight 54.545, kg, Priority: STAT, Start date: 04/30/16 23:32:00 [employer], Stop date: 04/30/16 23:32:00 [employer] Sodium 2017-0 No 1,000 mL, [facility] Chloride 1-01 1,000 l 0.154 04:38: ml/hr, [place] MEQ/ML 00 Infuse Injectable Over: 1 Solution hr, Route: IV, 1,000, Drug form: INJ, ONCE, Priority: STAT, Dosing Weight 54.545 kg, Start date: 04/30/16 22:38:00 [employer], Duration: 1 doses or times, Stop date: 04/30/16 22:38:00 [employer] Sodium 2017-0 No 1,000 mL, [facility] Chloride 1-01 1,000 l 0.154 04:38: ml/hr, [place] MEQ/ML 00 Infuse Injectable Over: 1 Solution hr, Route: IV, 1,000, Drug form: INJ, ONCE, Priority: STAT, Dosing Weight 54.545 kg, Start date: 04/30/16 22:38:00 [employer], Duration: 1 doses or times, Stop date: 04/30/16 22:38:00 [employer] Sodium 2017-0 No 1,000 mL, [facility] Chloride 1-01 1,000 l 0.154 04:38: ml/hr, [place] MEQ/ML 00 Infuse Injectable Over: 1 Solution hr, Route: IV, 1,000, Drug form: INJ, ONCE, Priority: STAT, Dosing Weight 54.545 kg, Start date: 04/30/16 22:38:00 [employer], Duration: 1 doses or times, Stop date: 04/30/16 22:38:00 [employer] Sodium 2017-0 No 1,000 mL, [facility] Chloride 1-01 1,000 l 0.154 04:38: ml/hr, [place] MEQ/ML 00 Infuse Injectable Over: 1 Solution hr, Route: IV, 1,000, Drug form: INJ, ONCE, Priority: STAT, Dosing Weight 54.545 kg, Start date: 04/30/16 22:38:00 [employer], Duration: 1 doses or times, Stop date: 04/30/16 22:38:00 [employer] Sodium 2017-0 No 1,000 mL, [facility] Chloride 1-01 1,000 l 0.154 04:38: ml/hr, [place] MEQ/ML 00 Infuse Injectable Over: 1 Solution hr, Route: IV, 1,000, Drug form: INJ, ONCE, Priority: STAT, Dosing Weight 54.545 kg, Start date: 04/30/16 22:38:00 [employer], Duration: 1 doses or times, Stop date: 04/30/16 22:38:00 [employer] Sodium 2017-0 No 1,000 mL, [facility] Chloride 1-01 1,000 l 0.154 04:38: ml/hr, [place] MEQ/ML 00 Infuse Injectable Over: 1 Solution hr, Route: IV, 1,000, Drug form: INJ, ONCE, Priority: STAT, Dosing Weight 54.545 kg, Start date: 04/30/16 22:38:00 [employer], Duration: 1 doses or times, Stop date: 04/30/16 22:38:00 [employer]ER Sodium 2017-0 No 1,000 mL, [facility] Chloride 1-01 1,000 l 0.154 04:38: ml/hr, [place] MEQ/ML 00 Infuse Injectable Over: 1 Solution hr, Route: IV, 1,000, Drug form: INJ, ONCE, Priority: STAT, Dosing Weight 54.545 kg, Start date: 04/30/16 22:38:00 [employer], Duration: 1 doses or times, Stop date: 04/30/16 22:38:00 [employer] Sodium 2017-0 No 1,000 mL, [facility] Chloride 1-01 1,000 l 0.154 04:38: ml/hr, [place] MEQ/ML 00 Infuse Injectable Over: 1 Solution hr, Route: IV, 1,000, Drug form: INJ, ONCE, Priority: STAT, Dosing Weight 54.545 kg, Start date: 04/30/16 22:38:00 [employer], Duration: 1 doses or times, Stop date: 04/30/16 22:38:00 [employer]ER Sodium 2017-0 No 1,000 mL, [facility] Chloride 1- 1,000 l 0.154 04:38: ml/hr, [place] MEQ/ML 00 Infuse Injectable Over: 1 Solution hr, Route: IV, 1,000, Drug form: INJ, ONCE, Priority: STAT, Dosing Weight 54.545 kg, Start date: 04/30/16 22:38:00 [employer], Duration: 1 doses or times, Stop date: 04/30/16 22:38:00 [employer] Sodium 2017-0 No 25 mL, [facility] Chloride 05-01 Route: IV, l 0.9% IV 02:29: Start date: 04/30/16 20:29:00 [employer], Duration: 30 day, Stop date: 05/30/16 20:28:00 [employer], PRN Line Flush BD Normal 2017-0 No Notes: [facility] a Saline - (Same as: l Flush 02:29: BD [place] Posiflush) Sodium 2017-0 No 25 mL, [facility] Chloride 1 Route: IV, l 0.9% IV 02:29: Start [place] 00 date: 04/30/16 20:29:00 [employer], Duration: 30 day, Stop date: 05/30/16 20:28:00 [employer], PRN Line Flush BD Normal 2017-0 No Notes: Memori a Saline 1- (Same as: l Flush 02:29: BD [place] 00 Posiflush) Sodium 2017-0 No 25 mL, [facility] Chloride 1- Route: IV, l 0.9% IV 02:29: Start [place] 00 date: 04/30/16 20:29:00 [employer], Duration: 30 day, Stop date: 05/30/16 20:28:00 [employer], PRN Line Flush BD Normal 2016-0 No Notes: Memori a Saline 05-01 (Same as: l Flush 02:29: BD [place] 00 Posiflush) Sodium 2017-0 No 25 mL, [facility] Chloride 05-01 Route: IV, l 0.9% IV 02:29: Start [place] 00 date: 04/30/16 20:29:00 [employer], Duration: 30 day, Stop date: 05/30/16 20:28:00 [employer], PRN Line Flush BD Normal 0 No Notes: Memori a Saline 05-01 (Same as: l Flush 02:29: BD [place] Posiflush) Sodium 2016-0 No 25 mL, [facility]oria Chloride 05-01 Route: IV, l 0.9% IV 02:29: Start [place] 00 date: 04/30/16 20:29:00 [employer], Duration: 30 day, Stop date: 05/30/16 20:28:00 [employer], PRN Line Flush BD Normal No Notes: Memori a Saline 05-01 (Same as: l Flush 02:29: BD [place] Posiflush) Sodium 2016-0 No 25 mL, [facility] Chloride 05-01 Route: IV, l 0.9% IV 02:29: Start date: 04/30/16 20:29:00 [employer], Duration: 30 day, Stop date: 05/30/16 20:28:00 [employer], PRN Line Flush BD Normal 0 No Notes: Memori a Saline 05-01 (Same as: l Flush 02:29: BD [place] Posiflush) Sodium 2016-0 No 25 mL, [facility] Chloride 05-01 Route: IV, l 0.9% IV 02:29: Start [place] 00 date: 04/30/16 20:29:00 SEQUINS [employer]INGER, Duration: 30 day, Stop date: 05/30/16 20:28:00 SEQUINS STRINGER, PRN Line Flush BD Normal 2016-0 No Notes: [facility] a Saline 05-01 (Same as: l Flush 02:29: BD [place] 00 Posiflush) Sodium 2016-0 No 25 mL, [facility] Chloride 05-01 Route: IV, l 0.9% IV 02:29: Start [place] 00 date: 04/30/16 20:29:00 SEQUINS STRINGER, Duration: 30 day, Stop date: 05/30/16 20:28:00 SEQUINS STRINGER, PRN Line Flush BD Normal 2017-0 No Notes: [facility] a Saline 1- (Same as: l Flush 02:29: BD [place] Posiflush) Sodium 2017-0 No 25 mL, [facility] Chloride 1- Route: IV, l 0.9% IV 02:29: Start date: 04/30/16 20:29:00 SEQUINS [employer]ER, Duration: 30 day, Stop date: 05/30/16 20:28:00 SEQUINS [employer]ER, PRN Line Flush BD Normal 2017-0 No Notes: [facility] a Saline 1- (Same as: l Flush 02:29: BD [place] 00 Posiflush) Sodium 2017-0 No 1,000 mL, [facility] a Chloride 1-01 1,000 l 0.154 02:19: ml/hr, [place] MEQ/ML 00 Infuse Injectable Over: 1 Solution hr, Route: IV, 1,000, Drug form: INJ, ONCE, Priority: STAT, Dosing Weight 54.545 kg, Start date: 04/30/16 20:19:00 SE[employer]ER, Duration: 1 doses or times, Stop date: 04/30/16 20:19:00 SEQUINS [employer]ER Sodium 2017-0 No 1,000 mL, [facility] a Chloride 1-01 1,000 l 0.154 02:19: ml/hr, [place] MEQ/ML 00 Infuse Injectable Over: 1 Solution hr, Route: IV, 1,000, Drug form: INJ, ONCE, Priority: STAT, Dosing Weight 54.545 kg, Start date: 04/30/16 20:19:00 SEQUINS [employer]ER, Duration: 1 doses or times, Stop date: 04/30/16 20:19:00 SEQUINS [employer]ER Sodium 2017-0 No 1,000 mL, [facility] a Chloride 1-01 1,000 l 0.154 02:19: ml/hr, [place] MEQ/ML 00 Infuse Injectable Over: 1 Solution hr, Route: IV, 1,000, Drug form: INJ, ONCE, Priority: STAT, Dosing Weight 54.545 kg, Start date: 04/30/16 20:19:00 SEQUINS [employer]ER, Duration: 1 doses or times, Stop date: 04/30/16 20:19:00 SEQUINS [employer]ER Sodium 2017-0 No 1,000 mL, [facility] a Chloride 1-01 1,000 l 0.154 02:19: ml/hr, [place] MEQ/ML 00 Infuse Injectable Over: 1 Solution hr, Route: IV, 1,000, Drug form: INJ, ONCE, Priority: STAT, Dosing Weight 54.545 kg, Start date: 04/30/16 20:19:00 SEQUINS [employer]ER, Duration: 1 doses or times, Stop date: 04/30/16 20:19:00 SEQUINS [employer]ER Sodium 2017-0 No 1,000 mL, [facility] a Chloride 1-01 1,000 l 0.154 02:19: ml/hr, [place] MEQ/ML 00 Infuse Injectable Over: 1 Solution hr, Route: IV, 1,000, Drug form: INJ, ONCE, Priority: STAT, Dosing Weight 54.545 kg, Start date: 04/30/16 20:19:00 SEQUINS [employer]ER, Duration: 1 doses or times, Stop date: 04/30/16 20:19:00 SEQUINS [employer]ER Sodium 2017-0 No 1,000 mL, [facility] a Chloride 1-01 1,000 l 0.154 02:19: ml/hr, [place] MEQ/ML 00 Infuse Injectable Over: 1 Solution hr, Route: IV, 1,000, Drug form: INJ, ONCE, Priority: STAT, Dosing Weight 54.545 kg, Start date: 04/30/16 20:19:00 SEQUINS [employer]ER, Duration: 1 doses or times, Stop date: 04/30/16 20:19:00 SEQUINS [employer]ER Sodium 2017-0 No 1,000 mL, [facility] a Chloride 1-01 1,000 l 0.154 02:19: ml/hr, [place] MEQ/ML 00 Infuse Injectable Over: 1 Solution hr, Route: IV, 1,000, Drug form: INJ, ONCE, Priority: STAT, Dosing Weight 54.545 kg, Start date: 04/30/16 20:19:00 SEQUINS [employer]ER, Duration: 1 doses or times, Stop date: 04/30/16 20:19:00 SEQUINS [employer]INGER Sodium 2017-0 No 1,000 mL, [facility] a Chloride 1-01 1,000 l 0.154 02:19: ml/hr, [place] MEQ/ML 00 Infuse Injectable Over: 1 Solution hr, Route: IV, 1,000, Drug form: INJ, ONCE, Priority: STAT, Dosing Weight 54.545 kg, Start date: 04/30/16 20:19:00 SEQUINS [employer]ER, Duration: 1 doses or times, Stop date: 04/30/16 20:19:00 SEQUINS [employer]ER Sodium 2017-0 No 1,000 mL, [facility] a Chloride 1-01 1,000 l 0.154 02:19: ml/hr, [place] MEQ/ML 00 Infuse Injectable Over: 1 Solution hr, Route: IV, 1,000, Drug form: INJ, ONCE, Priority: STAT, Dosing Weight 54.545 kg, Start date: 04/30/16 20:19:00 SE[employer], Duration: 1 doses or times, Stop date: 04/30/16 20:19:00 SEQUINS STR[employer]ER tramadol 2015-05 Yes 50 mg = 1 [...] Route: IV, l 0.9% IV 11:21: Start [place] 00 date: 04/30/16 5:21:00 [employer], Duration: 30 day, Stop date: 05/30/16 5:20:00 SE[employer]INS [employer], PRN Line Flush BD Normal 2015-05 No Notes: [facility] a Saline 2-31 (Same as: l Flush 11:21: BD [place] 00 Posiflush) Sodium 2015-05 No 25 mL, [facility] Chloride 2-31 Route: IV, l 0.9% IV 11:21: Start [place] 00 date: 04/30/16 5:21:00 SE[employer]INS [employer]ER, Duration: 30 day, Stop date: 05/30/16 5:20:00 SEQUINS [employer], PRN Line Flush BD Normal 2015-05 No Notes: [facility] a Saline 2-31 (Same as: l Flush 11:21: BD [place] 00 Posiflush) Sodium 2015-05 No 25 mL, [facility] Chloride 2-31 Route: IV, l 0.9% IV 11:21: Start [place] 00 date: 04/30/16 5:21:00 SE[employer]INS [employer]ER, Duration: 30 day, Stop date: 05/30/16 5:20:00 SEQUINS STR[employer]ER, PRN Line Flush BD Normal 2015-05 No Notes: [facility] a Saline 2-31 (Same as: l Flush 11:21: BD [place] Posiflush) Sodium 2015-05 No 25 mL, [facility] Chloride 2-31 Route: IV, l 0.9% IV 11:21: Start [place] 00 date: 04/30/16 5:21:00 SE[employer]ER, Duration: 30 day, Stop date: 05/30/16 5:20:00 SEQUINS STR[employer]ER, PRN Line Flush BD Normal 2015-05 No Notes: [facility] a Saline 2-31 (Same as: l Flush 11:21: BD [place] 00 Posiflush) Sodium 2015-05 No 25 mL, [facility] Chloride 2-31 Route: IV, l 0.9% IV 11:21: Start [place] 00 date: 04/30/16 5:21:00 SE[employer]ER, Duration: 30 day, Stop date: 05/30/16 5:20:00 SEQUINS STR[employer]ER, PRN Line Flush BD Normal 2015-05 No Notes: [facility] a Saline 2-31 (Same as: l Flush 11:21: BD [place] 00 Posiflush) Sodium 2015-05 No 25 mL, [facility] Chloride 2-31 Route: IV, l 0.9% IV 11:21: Start [place] 00 date: 04/30/16 5:21:00 SEQUINS [employer]ER, Duration: 30 day, Stop date: 05/30/16 5:20:00 SEQUINS STR[employer]ER, PRN Line Flush BD Normal 2015-05 No Notes: [facility] a Saline 2-31 (Same as: l Flush 11:21: BD [place] 00 Posiflush) Sodium 2015-05 No 25 mL, [facility] Chloride 2-31 Route: IV, l 0.9% IV 11:21: Start [place] 00 date: 04/30/16 5:21:00 SEQUINS [employer]ER, Duration: 30 day, Stop date: 05/30/16 5:20:00 SEQUINS STR[employer]ER, PRN Line Flush BD Normal 2015-05 No Notes: [facility] a Saline 2-31 (Same as: l Flush 11:21: BD [place] Posiflush) Sodium 2015-05 No 25 mL, [facility] Chloride 2-31 Route: IV, l 0.9% IV 11:21: Start date: 04/30/16 5:21:00 SEQUINS [employer]ER, Duration: 30 day, Stop date: 05/30/16 5:20:00 SEQUINS STR[employer]ER, PRN Line Flush BD Normal 2015-05 No Notes: [facility] a Saline 2-31 (Same as: l Flush 11:21: BD [place] Posiflush) Sodium 2015-05 No 25 mL, [facility] Chloride 2-31 Route: IV, l 0.9% IV 11:21: Start date: 04/30/16 5:21:00 SEQUINS [employer]ER, Duration: 30 day, Stop date: 05/30/16 5:20:00 SEQUINS STR[employer]ER, PRN Line Flush BD Normal 2015-05 No Notes: [facility] a Saline 2-31 (Same as: l Flush 11:21: BD [place] Posiflush) Motrin 2015-05 No 800 mg, 1 [facility] a 2-31 tab, l 11:19: Route: PO, [place] 00 Drug form: TAB, ONCE, Dosing Weight 54.545, kg, Priority: STAT, Start date: 04/30/16 5:19:00 SE[employer]ER, Stop date: 04/30/16 5:19:00 SE[employer]INS [employer]ER Motrin 2015-05 No 800 mg, 1 [facility] a 2-31 tab, l 11:19: Route: PO, [place] 00 Drug form: TAB, ONCE, Dosing Weight 54.545, kg, Priority: STAT, Start date: 04/30/16 5:19:00 SE[employer]INS [employer]ER, Stop date: 04/30/16 5:19:00 SEQUINS [employer]ER Motrin 2016-1 No 800 mg, 1 [facility] a 2-31 tab, l 11:19: Route: PO, [place] 00 Drug form: TAB, ONCE, Dosing Weight 54.545, kg, Priority: STAT, Start date: 04/30/16 5:19:00 SEQUINS [employer]ER, Stop date: 04/30/16 5:19:00 SEQUINS [employer]ER Motrin 2016-1 No 800 mg, 1 [facility] a 2-31 tab, l 11:19: Route: PO, [place] 00 Drug form: TAB, ONCE, Dosing Weight 54.545, kg, Priority: STAT, Start date: 04/30/16 5:19:00 SE[employer]INS [employer]ER, Stop date: 04/30/16 5:19:00 SEQUINS [employer]INGER Motrin 2016-1 No 800 mg, 1 [facility] a 2-31 tab, l 11:19: Route: PO, [place] 00 Drug form: TAB, ONCE, Dosing Weight 54.545, kg, Priority: STAT, Start date: 04/30/16 5:19:00 SEQUINS STR[employer]ER, Stop date: 04/30/16 5:19:00 SEQUINS STRINGER Motrin 2016-1 No 800 mg, 1 [facility] a 2-31 tab, l 11:19: Route: PO, [place] 00 Drug form: TAB, ONCE, Dosing Weight 54.545, kg, Priority: STAT, Start date: 04/30/16 5:19:00 SEQUINS STR[employer]ER, Stop date: 04/30/16 5:19:00 SEQUINS STRINGER Motrin 2016-1 No 800 mg, 1 [facility] a 2-31 tab, l 11:19: Route: PO, [place] 00 Drug form: TAB, ONCE, Dosing Weight 54.545, kg, Priority: STAT, Start date: 04/30/16 5:19:00 SEQUINS STRINGER, Stop date: 04/30/16 5:19:00 SEQUINS STRINGER Motrin 2016-1 No 800 mg, 1 [facility] a 2-31 tab, l 11:19: Route: PO, [place] 00 Drug form: TAB, ONCE, Dosing Weight 54.545, kg, Priority: STAT, Start date: 04/30/16 5:19:00 SEQUINS STRINGER, Stop date: 04/30/16 5:19:00 SEQUINS STRINGER Motrin 2016-1 No 800 mg, 1 [facility] a 2-31 tab, l 11:19: Route: PO, Drug form: TAB, ONCE, Dosing Weight 54.545, kg, Priority: STAT, Start date: 04/30/16 5:19:00 SEQUINS STR[employer]ER, Stop date: 04/30/16 5:19:00 SEQUINS STRINGER Sodium 2015-05 No 25 mL, [facility] Chloride 2-31 Route: IV, l 0.9% IV 11:07: date: 04/30/16 5:07:00 SEQUINS STR[employer]ER, Duration: 30 day, Stop date: 05/30/16 5:06:00 SEQUINS STR[employer]ER, PRN Line Flush BD Normal 2015-05 No Notes: [facility] a Saline 2-31 (Same as: l Flush 11:07: BD [place] 00 Posiflush) Sodium 2015-05 No 25 mL, [facility] Chloride 2-31 Route: IV, l 0.9% IV 11:07: date: 04/30/16 5:07:00 SEQUINS STR[employer]ER, Duration: 30 day, Stop date: 05/30/16 5:06:00 SEQUINS STRINGER, PRN Line Flush BD Normal 2015-05 No Notes: [facility] a Saline 2-31 (Same as: l Flush 11:07: BD [place] 00 Posiflush) Sodium 2015-05 No 25 mL, [facility] Chloride 2-31 Route: IV, l 0.9% IV 11:07: date: 04/30/16 5:07:00 SEQUINS STRINGER, Duration: 30 day, Stop date: 05/30/16 5:06:00 SEQUINS STRINGER, PRN Line Flush BD Normal 2015-05 No Notes: [facility] a Saline 2-31 (Same as: l Flush 11:07: BD [place] 00 Posiflush) Sodium 2015-05 No 25 mL, [facility] Chloride 2-31 Route: IV, l 0.9% IV 11:07: date: 04/30/16 5:07:00 SEQUINS STR[employer]ER, Duration: 30 day, Stop date: 05/30/16 5:06:00 SEQUINS STRINGER, PRN Line Flush BD Normal 2015-05 No Notes: [facility] a Saline 2-31 (Same as: l Flush 11:07: BD [place] 00 Posiflush) Sodium 2015-05 No 25 mL, [facility] Chloride 2-31 Route: IV, l 0.9% IV 11:07: Start [place] 00 date: 04/30/16 5:07:00 SEQUINS STRINGER, Duration: 30 day, Stop date: 05/30/16 5:06:00 SEQUINS STRINGER, PRN Line Flush BD Normal 2015-05 No Notes: [facility] a Saline 2-31 (Same as: l Flush 11:07: BD [place] Posiflush) Sodium 2015-05 No 25 mL, [facility] Chloride 2-31 Route: IV, l 0.9% IV 11:07: Start [place] 00 date: 04/30/16 5:07:00 SEQUINS STR[employer]ER, Duration: 30 day, Stop date: 05/30/16 5:06:00 SEQUINS STRINGER, PRN Line Flush BD Normal 2015-05 No Notes: [facility] a Saline 2-31 (Same as: l Flush 11:07: BD [place] Posiflush) Sodium 2015-05 No 25 mL, [facility] Chloride 2-31 Route: IV, l 0.9% IV 11:07: Start date: 04/30/16 5:07:00 SEQUINS STRINGER, Duration: 30 day, Stop date: 05/30/16 5:06:00 SEQUINS STRINGER, PRN Line Flush BD Normal 2015-05 No Notes: [facility] a Saline 2-31 (Same as: l Flush 11:07: BD [place] Posiflush) Sodium 2015-05 No 25 mL, [facility] Chloride 2-31 Route: IV, l 0.9% IV 11:07: Start [place] 00 date: 04/30/16 5:07:00 SEQUINS STR[employer]ER, Duration: 30 day, Stop date: 05/30/16 5:06:00 SEQUINS STRINGER, PRN Line Flush BD Normal 2015-05 No Notes: [facility] a Saline 2-31 (Same as: l Flush 11:07: BD [place] 00 Posiflush) Sodium 2015-05 No 25 mL, [facility] Chloride 2-31 Route: IV, l 0.9% IV 11:07: Start [place] 00 date: 04/30/16 5:07:00 SEQUINS STR[employer]ER, Duration: 30 day, Stop date: 05/30/16 5:06:00 SEQUINS STRINGER, PRN Line Flush BD Normal 2015-05 No Notes: [facility] a Saline 2-31 (Same as: l Flush 11:07: BD [place] 00 Posiflush) Sodium 2015-05 No 1,000 mL, [facility] a Chloride 2-31 1,000 l 0.154 11:01: ml/hr, [place] MEQ/ML 00 Infuse Injectable Over: 1 Solution hr, Route: IV, 1,000, Drug form: INJ, ONCE, Priority: STAT, Dosing Weight 54.545 kg, Start date: 04/30/16 5:01:00 SE[employer]INS [employer]ER, Duration: 1 doses or times, Stop date: 04/30/16 5:01:00 SEQUINS STRINGER Ketorolac 2015-05 No 4 days [facility] 2-31 l 11:01: MEDICATION [place] 00 WASTE Product Size: 30 mg Product Wasted: ___ mg Compazine 2015-05 No Notes: [facility] a 2-31 (Same as: l : Compazine) [place] 00 Benadryl 2015-05 No Notes: [facility] 2-31 (Same as: l :: Benadryl) [place] Sodium 2015-05 No 1,000 mL, [facility] a Chloride 2-31 1,000 l 0.154 11:01: ml/hr, [place] MEQ/ML 00 Infuse Injectable Over: 1 Solution hr, Route: IV, 1,000, Drug form: INJ, ONCE, Priority: STAT, Dosing Weight 54.545 kg, Start date: 04/30/16 5:01:00 SEQUINS STR[employer]ER, Duration: 1 doses or times, Stop date: 04/30/16 5:01:00 SEQUINS STRINGER Ketorolac 2015-05 No 4 days [facility] 2-31 l 11:01: MEDICATION [place] 00 WASTE Product Size: 30 mg Product Wasted: ___ mg Compazine 2015-05 No Notes: [facility] a 2-31 (Same as: l :: Compazine) [place] Benadryl 2015-05 No Notes: [facility] 2-31 (Same as: l :: Benadryl) [place] 00 Sodium 2015-05 No 1,000 mL, [facility] a Chloride 2-31 1,000 l 0.154 11:01: ml/hr, [place] MEQ/ML 00 Infuse Injectable Over: 1 Solution hr, Route: IV, 1,000, Drug form: INJ, ONCE, Priority: STAT, Dosing Weight 54.545 kg, Start date: 04/30/16 5:01:00 SEQUINS STR[employer]ER, Duration: 1 doses or times, Stop date: 04/30/16 5:01:00 SEQUINS STRINGER Ketorolac 2015-05 No 4 days [facility] 2-31 l 11:01: MEDICATION [place] WASTE Product Size: 30 mg Product Wasted: [...] Weight 54.545 kg, Start date: 04/30/16 5:01:00 SEQUINS STR[employer]ER, Duration: 1 doses or times, Stop date: 04/30/16 5:01:00 SEQUINS STRINGER Ketorolac 2015-05 No 4 days [facility] 2-31 l 11:01: MEDICATION [place] WASTE Product Size: 30 mg Product Wasted: ___ mg Compazine 2015-05 No Notes: [facility] a 2-31 (Same as: l 11:: Compazine) [place] Benadryl 2015-05 No Notes: [facility] 2-31 (Same as: l 11:: Benadryl) [place] 00 Sodium 2015-05 No 1,000 mL, [facility] a Chloride 2-31 1,000 l 0.154 11:01: ml/hr, [place] MEQ/ML 00 Infuse Injectable Over: 1 Solution hr, Route: IV, 1,000, Drug form: INJ, ONCE, Priority: STAT, Dosing Weight 54.545 kg, Start date: 04/30/16 5:01:00 SEQUINS STR[employer]ER, Duration: 1 doses or times, Stop date: 04/30/16 5:01:00 SEQUINS STRINGER Ketorolac 2015-05 No 4 days [facility] 2-31 l 11:01: MEDICATION [place] 00 WASTE Product Size: 30 mg Product Wasted: ___ mg Compazine 2015-05 No Notes: [facility] a 2-31 (Same as: l 11:: Compazine) [place] Benadryl 2015-05 No Notes: [facility] 2-31 (Same as: l 11:: Benadryl) [place] 00 Sodium 2015-05 No 1,000 mL, [facility] a Chloride 2-31 1,000 l 0.154 11:01: ml/hr, [place] MEQ/ML 00 Infuse Injectable Over: 1 Solution hr, Route: IV, 1,000, Drug form: INJ, ONCE, Priority: STAT, Dosing Weight 54.545 kg, Start date: 04/30/16 5:01:00 SEQUINS STR[employer]ER, Duration: 1 doses or times, Stop date: 04/30/16 5:01:00 SEQUINS STRINGER Ketorolac 2015-05 No 4 days [facility] 2-31 l 11:01: MEDICATION [place] 00 WASTE Product Size: 30 mg Product Wasted: ___ mg Compazine 2015-05 No Notes: [facility] a 2-31 (Same as: l :: Compazine) [place] Benadryl 2015-05 No Notes: [facility] 2-31 (Same as: l :: Benadryl) [place] Sodium 2015-05 No 1,000 mL, [facility] a Chloride 2-31 1,000 l 0.154 11:01: ml/hr, [place] MEQ/ML 00 Infuse Injectable Over: 1 Solution hr, Route: IV, 1,000, Drug form: INJ, ONCE, Priority: STAT, Dosing Weight 54.545 kg, Start date: 04/30/16 5:01:00 SEQUINS STR[employer]ER, Duration: 1 doses or times, Stop date: 04/30/16 5:01:00 SEQUINS STRINGER Ketorolac 2015-05 No 4 days [facility] 2-31 l 11:01: MEDICATION [place] 00 WASTE Product Size: 30 mg Product Wasted: ___ mg Compazine 2015-05 No Notes: [facility] a 2-31 (Same as: l 11:: Compazine) [place] Benadryl 2015-05 No Notes: [facility] 2-31 (Same as: l 11:: Benadryl) [place] Sodium 2015-05 No 1,000 mL, [facility] a Chloride 2-31 1,000 l 0.154 11:01: ml/hr, [place] MEQ/ML 00 Infuse Injectable Over: 1 Solution hr, Route: IV, 1,000, Drug form: INJ, ONCE, Priority: STAT, Dosing Weight 54.545 kg, Start date: 04/30/16 5:01:00 SEQUINS STR[employer]ER, Duration: 1 doses or times, Stop date: 04/30/16 5:01:00 SEQUINS STRINGER Ketorolac 2015-05 No 4 days [facility] 2-31 l 11:01: MEDICATION [place] 00 WASTE Product Size: 30 mg Product Wasted: ___ mg Compazine 2015-05 No Notes: [facility] a 2-31 (Same as: l 11:: Compazine) Benadryl 2015-05 No Notes: [facility] 2-31 (Same as: l 11:: Benadryl) [place] Sodium 2015-05 No 1,000 mL, [facility] a Chloride 2-31 1,000 l 0.154 11:01: ml/hr, [place] MEQ/ML 00 Infuse Injectable Over: 1 Solution hr, Route: IV, 1,000, Drug form: INJ, ONCE, Priority: STAT, Dosing Weight 54.545 kg, Start date: 04/30/16 5:01:00 SEQUINS STR[employer]ER, Duration: 1 doses or times, Stop date: 04/30/16 5:01:00 SEQUINS STRINGER Ketorolac 2015-05 No 4 days [facility] 2-31 l 11:01: MEDICATION [place] 00 WASTE Product Size: 30 mg Product Wasted: ___ mg Compazine 2015-05 No Notes: [facility] a 2-31 (Same as: l 11:: Compazine) [place] Benadryl 2015-05 No Notes: [facility] 2-31 (Same as: l 11:: Benadryl) [place] 00 Dexamethaso 2015-05 No Notes: Magdaleno pilo ne 2-08 Concentrat l 06:19: ion: [place] 00 4mg/ml Dexamethaso 2015-05 No Notes: Magdaleno pilo ne 2-08 Concentrat l 06:19: ion: [place] 00 4mg/ml Dexamethaso 2015-05 No Notes: Magdaleno pilo ne 2-08 Concentrat l 06:19: ion: [place] 00 4mg/ml Dexamethaso 2015-05 No Notes: Magdaleno pilo ne 2-08 Concentrat l 06:19: ion: [place] 00 4mg/ml Dexamethaso 2015-05 No Notes: Magdaleno pilo ne 2-08 Concentrat l 06:19: ion: [place] 00 4mg/ml Dexamethaso 2015-05 No Notes: Magdaleno pilo ne 2-08 Concentrat l 06:19: ion: [place] 00 4mg/ml Dexamethaso 2015-05 No Notes: Magdaleno pilo ne 2-08 Concentrat l 06:19: ion: [place] 00 4mg/ml Dexamethaso 2015-05 No Notes: Magdaleno pilo ne 2-08 Concentrat l 06:19: ion: [place] 00 4mg/ml Dexamethaso 2015-05 No Notes: Magdaleno pilo ne 2- Concentrat l 06:19: ion: [place] 00 4mg/ml Motrin 2015-05 No Notes: [facility] 2-08 (Same as: l 01:50: Motrin) [place] 00 "Do Not Crush" Take with food. sodium 2015-05 No 1,000 mL, [facility] a chloride 2-08 Rate: l 0.9% 1000 01:50: 1,000 [place] ml INJ 00 ml/hr, 1,000 mL Infuse over: 1 hr, Route: IV, Dosing Weight 50 kg, Total Volume: 1,000, Start date: 04/06/16 19:50:00 SEQUINS [employer]ER, Duration: 1 doses or times, Stop date: 04/06/16 20:49:00 SEQUINS STRINGER, Bolus Dose Motrin 2015-05 No Notes: [facility] 2-08 (Same as: l 01:50: Motrin) [place] 00 "Do Not Crush" Take with food. sodium 2015-05 No 1,000 mL, [facility] a chloride 2-08 Rate: l 0.9% 1000 01:50: 1,000 [place] ml INJ 00 ml/hr, 1,000 mL Infuse over: 1 hr, Route: IV, Dosing Weight 50 kg, Total Volume: 1,000, Start date: 04/06/16 19:50:00 SEQUINS STR[employer]ER, Duration: 1 doses or times, Stop date: 04/06/16 20:49:00 SEQUINS STRINGER, Bolus Dose Motrin 2015-05 No Notes: [facility] 2-08 (Same as: l 01:50: Motrin) [place] 00 "Do Not Crush" Take with food. sodium 2015-05 No 1,000 mL, [facility] a chloride 2-08 Rate: l 0.9% 1000 01:50: 1,000 [place] ml INJ 00 ml/hr, 1,000 mL Infuse over: 1 hr, Route: IV, Dosing Weight 50 kg, Total Volume: 1,000, Start date: 04/06/16 19:50:00 SEQUINS STRINGER, Duration: 1 doses or times, Stop date: 04/06/16 20:49:00 SEQUINS STRINGER, Bolus Dose Motrin 2015-05 No Notes: [facility] 2-08 (Same as: l 01:50: Motrin) [place] 00 "Do Not Crush" Take with food. sodium 2015-05 No 1,000 mL, [facility] a chloride 2-08 Rate: l 0.9% 1000 01:50: 1,000 [place] ml INJ 00 ml/hr, 1,000 mL Infuse over: 1 hr, Route: IV, Dosing Weight 50 kg, Total Volume: 1,000, Start date: 04/06/16 19:50:00 SEQUINS STRINGER, Duration: 1 doses or times, Stop date: 04/06/16 20:49:00 SEQUINS STRINGER, Bolus Dose Motrin 2015-05 No Notes: [facility] 2-08 (Same as: l 01:50: Motrin) [place] 00 "Do Not Crush" Take with food. sodium 2015-05 No 1,000 mL, [facility] a chloride 2-08 Rate: l 0.9% 1000 01:50: 1,000 [place] ml INJ 00 ml/hr, 1,000 mL Infuse over: 1 hr, Route: IV, Dosing Weight 50 kg, Total Volume: 1,000, Start date: 04/06/16 19:50:00 SEQUINS STR[employer]ER, Duration: 1 doses or times, Stop date: 04/06/16 20:49:00 SEQUINS STRINGER, Bolus Dose Motrin 2015-05 No Notes: [facility] 2-08 (Same as: l 01:50: Motrin) [place] 00 "Do Not Crush" Take with food. sodium 2016- No 1,000 mL, [facility] a chloride 2-08 Rate: l 0.9% 1000 01:50: 1,000 [place] ml INJ 00 ml/hr, 1,000 mL Infuse over: 1 hr, Route: IV, Dosing Weight 50 kg, Total Volume: 1,000, Start date: 04/06/16 19:50:00 SEQUINS STRINGER, Duration: 1 doses or times, Stop date: 04/06/16 20:49:00 SEQUINS STRINGER, Bolus Dose Motrin 2016- No Notes: [facility] 2-08 (Same as: l 01:50: Motrin) [place] 00 "Do Not Crush" Take with food. sodium 2015- No 1,000 mL, [facility] a chloride 2-08 Rate: l 0.9% 1000 01:50: 1,000 [place] ml INJ 00 ml/hr, 1,000 mL Infuse over: 1 hr, Route: IV, Dosing Weight 50 kg, Total Volume: 1,000, Start date: 04/06/16 19:50:00 SEQUINS STR[employer]ER, Duration: 1 doses or times, Stop date: 04/06/16 20:49:00 SEQUINS STRINGER, Bolus Dose Motrin 2016-1 No Notes: [facility] 2-08 (Same as: l 01:50: Motrin) [place] 00 "Do Not Crush" Take with food. sodium 2015- No 1,000 mL, [facility] a chloride 2-08 Rate: l 0.9% 1000 01:50: 1,000 [place] ml INJ 00 ml/hr, 1,000 mL Infuse over: 1 hr, Route: IV, Dosing Weight 50 kg, Total Volume: 1,000, Start date: 04/06/16 19:50:00 SEQUINS STR[employer]ER, Duration: 1 doses or times, Stop date: 04/06/16 20:49:00 SEQUINS STRINGER, Bolus Dose Motrin 2016-1 No Notes: [facility] 2-08 (Same as: l 01:50: Motrin) [place] 00 "Do Not Crush" Take with food. sodium 2015- No 1,000 mL, [facility] a chloride 2-08 Rate: l 0.9% 1000 01:50: 1,000 [place] ml INJ 00 ml/hr, 1,000 mL Infuse over: 1 hr, Route: IV, Dosing Weight 50 kg, Total Volume: 1,000, Start date: 04/06/16 19:50:00 SE[employer]INS STR[employer]ER, Duration: 1 doses or times, Stop date: 04/06/16 20:49:00 SEQUINS STRINGER, Bolus Dose Acetaminoph No Notes: Do M emoria en 01-13 not exceed l 06:17: 4 gm/day. Bryson 00 (Same as: Tylenol) Acetaminoph No Notes: Do M emoria en 01-13 not exceed l 06:17: 4 gm/day. Bryson 00 (Same as: Tylenol) Acetaminoph No Notes: Do M emoria en 01-13 not exceed l 06:17: 4 gm/day. [place] (Same as: Tylenol) Acetaminoph No Notes: Do M emoria en 15 not exceed l 06:17: 4 gm/day. [place] 00 (Same as: Tylenol) Acetaminoph No Notes: Do M emoria en 01-13 not exceed l 06:17: 4 gm/day. [place] 00 (Same as: Tylenol) Acetaminoph No Notes: Do M emoria en 01-13 not exceed l 06:17: 4 gm/day. [place] (Same as: Tylenol) Acetaminoph No Notes: Do M emoria en 15 not exceed l 06:17: 4 gm/day. [place] 00 (Same as: Tylenol) Acetaminoph No Notes: Do M emoria en 01-13 not exceed l 06:17: 4 gm/day. [place] 00 (Same as: Tylenol) Acetaminoph No Notes: Do M emoria en 01-13 not exceed l 06:17: 4 gm/day. [place] (Same as: Tylenol) Epinephrine No 1 ml, Memor ia 0.01 MG/ML 01-13 Route: l / Lidocaine 03:09: SUB-Q, Herm boaz Hydrochlor Drug Form: de 10 MG/ML SOLN, Injectable Dosing Solution Weight 50, kg, ONCE, STAT, Start date: 01/13/16 22:09:00 CDT, Stop date: 01/13/16 22:09:00 CDT Epinephrine 2016-0 No 1 ml, Memor ia 0.01 MG/ML -15 Route: l / Lidocaine 03:09: SUB-Q, Herm boaz Hydrochlori 00 Drug Form: de 10 MG/ML SOLN, Injectable Dosing Solution Weight 50, kg, ONCE, STAT, Start date: 01/13/16 22:09:00 CDT, Stop date: 01/13/16 22:09:00 CDT Epinephrine 2016-0 No 1 ml, Memor ia 0.01 MG/ML - Route: l / Lidocaine 03:09: SUB-Q, Herm [...] No 1 ml, Memor ia 0.01 MG/ML - Route: l / Lidocaine 03:09: SUB-Q, Herm boaz Hydrochlori 00 Drug Form: de 10 MG/ML SOLN, Injectable Dosing Solution Weight 50, kg, ONCE, STAT, Start date: 01/13/16 22:09:00 CDT, Stop date: 01/13/16 22:09:00 CDT Epinephrine 2016-0 No 1 ml, Memor ia 0.01 MG/ML 15 Route: l / Lidocaine 03:09: SUB-Q, Herm [...] Take 2 Gonzales (COGENTIN) 5-01 tablets by [facility] 0.5 mg 00:00: mouth 2 tablet 00 [...] 1 Gonzales e (INVEGA) 5-01 tablet by [facility] 9 mg 00:00: mouth extended 00 every release morning. tablet traZODone 2013-0 Yes Psychosis 100mg Take 1 Gonzales (DESYREL) 5-01 tablet by [facility] h 100 mg 00:00: mouth tablet 00 nightly at bedtime as needed for Sleep. benztropine 2013- Yes Psychosis 1mg Take 2 Gonzales (COGENTIN) 5-01 tablets by [facility] lt 0.5 mg 00:00: mouth 2 tablet 00 times daily as needed for Other (EPS). gabapentin 2014-0 Yes Amphetamine 100mg Q.5D Take 1 Gonzales (NEURONTIN) 5-01 dependence capsule by Health 100 mg 00:00: mouth 2 capsule 00 times daily. gabapentin Yes Amphetamine 300mg Take 1 Gonzales (NEURONTIN) 5-01 dependence capsule by Health 300 mg 00:00: mouth at capsule 00 bedtime nightly. paliperidon Yes Psychosis 9mg Take 1 Gonzales e (INVEGA) 5-01 tablet by [facility] 9 mg 00:00: mouth extended 00 every release morning. tablet traZODone Yes Psychosis 100mg Take 1 Gonzales [facility]: mouth tablet 00 nightly at bedtime as needed for Sleep. benztropine Yes Psychosis 1mg Take 2 Gonzales (COGENTIN) 5- tablets by [facility] lt 0.5 mg 00:00: mouth 2 [...] 1 Gonzales e (INVEGA) 5-01 tablet by [facility] 9 mg 00:00: mouth extended 00 every release morning. tablet traZODone Yes Psychosis 100mg Take 1 Gonzales (DESYREL) 5-01 tablet [facility] 100 mg 00:00: mouth tablet 00 nightly at bedtime as needed for Sleep. benztropine 2021- No Psychosis 1mg Take 2 Gonzales (COGENTIN) -05 11- tablets by [facility] 0.5 mg 00:00: 00:00 mouth 2 tablet 00 :00 times daily as needed for Other (EPS). gabapentin 2021- No Amphetamine 100mg Q.5D Take 1 Gonzales (NEURONTIN) -03-14 dependence capsule by Health 100 mg 00:00: 00:00 mouth 2 capsule 00 :00 times daily. gabapentin 2021- No Amphetamine 300mg Take 1 Gonzales (NEURONTIN) -03-14 dependence capsule by Health 300 mg 00:00: 00:00 mouth at capsule 00 :00 bedtime nightly. paliperidon 2021- No Psychosis 9mg Take 1 Gonzales e (INVEGA) 08-29 tablet by [facility] 9 mg 00:00: 00:00 mouth extended 00 :00 every release morning. tablet traZODone 2021- No Psychosis 100mg Take 1 Gonzales (DESYREL) 08-29 tablet by [facility] 100 mg 00:00: 00:00 mouth tablet 00 :00 nightly at bedtime as needed for Sleep. benztropine 2021- No Psychosis 1mg Take 2 Gonzales (COGENTIN) 08-29 tablets by [facility] 0.5 mg 00:00: 00:00 mouth 2 tablet 00 :00 times daily as needed for Other (EPS). gabapentin 2021- No Amphetamine 100mg Q.5D Take 1 Gonzales (NEURONTIN) 08-29 dependence capsule by [facility] 100 mg 00:00: 00:00 mouth 2 capsule 00 :00 times daily. gabapentin No Amphetamine 300mg Take 1 Gonzales (NEURONTIN) 08-29 dependence capsule by Health 300 mg 00:00: 00:00 mouth at capsule 00 :00 bedtime nightly. paliperidon 2021- No Psychosis 9mg Take 1 Gonzales e (INVEGA) 08-29 tablet by [facility] 9 mg 00:00: 00:00 mouth extended 00 :00 every release morning. tablet traZODone 2021- No Psychosis 100mg Take 1 Gonzales (DESYREL) 08-29 tablet by [facility] 100 mg 00:00: 00:00 mouth tablet 00 :00 nightly at bedtime as needed for Sleep. benztropine 2021- No Psychosis 1mg Take 2 Gonzales (COGENTIN) 08-29 tablets by [facility] 0.5 mg 00:00: 00:00 mouth 2 tablet 00 :00 times daily as needed for Other (EPS). gabapentin 2021- No Amphetamine 100mg Q.5D Take 1 Gonzales (NEURONTIN) 08-29 dependence capsule by Health 100 mg 00:00: 00:00 mouth 2 capsule 00 :00 times daily. gabapentin 2021- No Amphetamine 300mg Take 1 Christian (NEURONTIN) 08-29 dependence capsule by Health 300 mg 00:00: 00:00 mouth at capsule 00 :00 bedtime nightly. paliperidon 2021- No Psychosis 9mg Take 1 Christian e (INVEGA) 08-29 tablet by [facility] 9 mg 00:00: 00:00 mouth extended 00 :00 every release morning. tablet traZODone 2021- No Psychosis 100mg Take 1 Christian (DESYREL) 08-29 tablet by [facility] 100 mg 00:00: 00:00 mouth tablet [...] for itching, Substituti on Allowed, TAB hydrOXYzine 2012- Yes Leona H 25 mg, 1 Memoria hydrochlori 12-30 Khraish tab, PO, l de 25 mg 17:35: QID, PRN, Herm boaz oral tablet 58 30 tab, as needed for itching, Substituti on Allowed, TAB hydrOXYzine Yes Loena H 25 mg, 1 Memoria hydrochlori 12-30 [...] needed for itching, Substituti on Allowed, TAB [place] Yes Leona H 1 tab, PO, Magdaleno pilo 10/325 oral 12-30 Khraish Q6H, 20 l tablet 17:35: Bryson grigsby Substituti on Allowed, Maintenanc e, TAB [place] Yes Leona H 1 tab, PO, Magdaleno pilo 10/325 oral 12-30 Khraish Q6H, 20 l tablet 17:35: Bryson grigsby Substituti on Allowed, Maintenanc e, TAB [place] Yes Leona H 1 tab, PO, Magdaleno pilo 10/325 oral 12-30 Khraish Q6H, 20 l tablet 17:35: Bryson grigsby Substituti on Allowed, Maintenanc e, TAB [place] Yes Leona H 1 tab, PO, Magdaleno pilo 10/325 oral 12-30 Khraish Q6H, 20 l tablet 17:35: Bryson grigsby Substituti on Allowed, Maintenanc e, TAB [place] Yes Leona H 1 tab, PO, Magdaleno pilo 10/325 oral 12-30 Khraish Q6H, 20 l tablet 17:35: Bryson grigsby Substituti on Allowed, Maintenanc e, TAB [place] Yes Leona H 1 tab, PO, Magdaleno pilo 10/325 oral 12-30 Khraish Q6H, 20 l tablet 17:35: tab, [place] 52 Substituti on Allowed, Maintenanc e, TAB [place] Yes Leona H 1 tab, PO, Magdaleno pilo 10/325 oral 12-30 Khraish Q6H, 20 l tablet 17:35: tab, Bryson 52 Substituti on Allowed, Maintenanc e, TAB [place] Yes Leona H 1 tab, PO, Magdaleno pilo 10/325 oral 12-30 Khraish Q6H, 20 l tablet 17:35: tab, [place] 52 Substituti on Allowed, Maintenanc e, TAB [place] Yes Leona H 1 tab, PO, Magdaleno pilo 10/325 oral 12-30 Khraish Q6H, 20 l tablet 17:35: tab, [place] 52 Substituti on Allowed, Maintenanc e, TAB [...] H 50 mg, 1 Memoria mg oral 9 Khraish tab, l tablet 13:44: Route: PO, [...] Leona H 25 mg, 1 Memoria hydrochlori Khraish tab, l de 25 mg 13:44: [...] 12-30 Mahesh Route: l 06:00: IVPB, Drug [place] form: PDR/INJ, ABXQ8H, Dosing Weight 54.545, kg, Start date: 12/30/12 1:00:00, Duration: 2 day, Stop date: 12/31/12 17:00:00 cefazolin 2012-0 No Lily 1 gm, Memor ia 9 Mahesh Route: l 06:00: IVPB, Drug [place] 00 form: PDR/INJ, ABXQ8H, Dosing Weight 54.545, kg, Start date: 12/30/12 1:00:00, Duration: 2 day, Stop date: 12/31/12 17:00:00 cefazolin 2012-0 No Lily 1 gm, Memor ia 9 Aragon Route: l 06:00: IVPB, Drug [place] 00 form: PDR/INJ, ABXQ8H, Dosing Weight 54.545, kg, Start date: 12/30/12 1:00:00, Duration: 2 day, Stop date: 12/31/12 17:00:00 cefazolin 2012-0 No Lily 1 gm, Memor ia 12-30 Aragon Route: l 06:00: IVPB, Drug [place] 00 form: PDR/INJ, ABXQ8H, Dosing Weight 54.545, [...] Lily 4 mg, 1 Memori a 12-30 [facility] tab, l 05:18: Route: PO, [place] 00 Drug form: TAB, Q8H, Dosing Weight 54.545, kg, PRN Nausea, Start date: 12/30/12 0:18:00, Duration: 30 day, Stop date: 01/29/13 0:17:00 Zofran 2012-0 No Lily 4 mg, 1 Memori a 12-30 [facility] tab, l 05:18: Route: PO, [place] Drug form: TAB, Q8H, Dosing Weight 54.545, kg, PRN Nausea, Start date: 12/30/12 0:18:00, Duration: 30 day, Stop date: 01/29/13 0:17:00 Zofran 2013-0 No Lily 4 mg, 1 Memori a 12-30 Aragon tab, l 05:18: Route: PO, [place] 00 Drug form: TAB, Q8H, Dosing Weight [...] 12-30 Aragon tab, l 05:18: Route: PO, [place] 00 Drug form: TAB, Q8H, Dosing Weight [...] 12-30 Aragon tab, l 05:18: Route: PO, [place] 00 Drug form: TAB, Q8H, Dosing Weight [...] day, Stop date: 01/29/13 0:17:00 Ultram 50 2013-0 No Dejon 100 mg, 2 Mem oria mg oral - Chibueze tab, l tablet 03:16: Osuagwu Route: PO, [facility] Drug form: TAB, ONCE, Dosing Weight 54.545, kg, Start date: 12/29/12 22:16:00, Stop date: 12/29/12 22:16:00 Ultram 50 2012-0 No Dejon 100 mg, 2 Mem oria mg oral - [place] tab, l tablet 03:16: Osuagwu Route: PO, [facility] Drug form: TAB, ONCE, Dosing Weight 54.545, kg, Start date: 12/29/12 22:16:00, Stop date: 12/29/12 22:16:00 Ultram 50 2012-0 No Dejon 100 mg, 2 Mem oria mg oral - [place] tab, l tablet 03:16: Osuagwu Route: PO, [facility] Drug form: TAB, ONCE, Dosing Weight 54.545, kg, Start date: 12/29/12 22:16:00, Stop date: 12/29/12 22:16:00 Ultra 50 2012-0 No Dejon 100 mg, 2 Mem oria mg oral - [place] tab, l tablet 03:16: Osuagwu Route: PO, [facility] Drug form: TAB, ONCE, Dosing Weight 54.545, kg, Start date: 12/29/12 22:16:00, Stop date: 12/29/12 22:16:00 Ultram 50 2012-0 No Dejon 100 mg, 2 Mem oria mg oral - [place] tab, l tablet 03:16: Osuagwu Route: PO, [facility] Drug form: TAB, ONCE, Dosing Weight 54.545, kg, Start date: 12/29/12 22:16:00, Stop date: 12/29/12 22:16:00 Ultram 50 2012-0 No Dejon 100 mg, 2 Mem oria mg oral - [place] tab, l tablet 03:16: Osuagwu Route: PO, [facility] Drug form: TAB, ONCE, Dosing Weight 54.545, kg, Start date: 12/29/12 22:16:00, Stop date: 12/29/12 22:16:00 Ultram 50 2012-0 No Dejon 100 mg, 2 Mem oria mg oral 12-30 Chibueze tab, l tablet 03:16: Osuagwu Route: PO, [facility] Drug form: TAB, ONCE, Dosing Weight 54.545, kg, Start date: 12/29/12 22:16:00, Stop date: 12/29/12 22:16:00 Ultram 50 2012-0 No Dejon 100 mg, 2 Mem oria mg oral 12-30 Chibueze tab, l tablet 03:16: Osuagwu Route: PO, [facility] Drug form: TAB, ONCE, Dosing Weight 54.545, kg, Start date: 12/29/12 22:16:00, Stop date: 12/29/12 22:16:00 Ultram 50 2012-0 No Dejon 100 mg, 2 Mem oria mg oral 12-30 Chibueze tab, l tablet 03:16: Osuagwu Route: PO, [facility] Drug form: TAB, ONCE, Dosing Weight 54.545, [...] 8-31 Khraish tab, l 22:00: Route: PO, [place] 00 Drug form: TAB, BID, Dosing Weight 54.545, kg, Start date: 12/29/12 17:00:00, Duration: 30 day, Stop date: 01/28/13 9:00:00 Valium 2013-0 No Leona H 5 mg, 1 Memori a 8-31 Khraish tab, l 22:00: Route: PO, [place] 00 Drug form: TAB, BID, Dosing Weight [...] 8-31 Khraish tab, l 22:00: Route: PO, [place] 00 Drug form: TAB, BID, Dosing Weight 54.545, kg, Start date: 12/29/12 17:00:00, Duration: 30 day, Stop date: 01/28/13 9:00:00 Valium 2013-0 No Leona H 5 mg, 1 Memori a 8-31 Khraish tab, l 22:00: Route: PO, [place] 00 Drug form: TAB, BID, Dosing Weight [...] 30 day, Stop date: 01/28/13 9:00:00 BD 2012- No Spencer 5 mL, Memoria Posiflush 12-29 Philip Reston Route: l SF 14:00: IVP, Drug Form: [...] Spencer 5 mL, Memoria Posiflush 8-31 Philip [place] Route: l SF 14:00: IVP, Drug Form: [...] Spencer 5 mL, Memoria Posiflush -31 Philip [place]on Route: l SF 14:00: IVP, Drug Form: INJ, Q12H, Start date: 12/29/12 9:00:00, Duration: 30 day, Stop date: 01/27/13 21:00:00 nicotine 2012-0 No Татьяна Yen 7 mg, 1 Mem oria 8-31 Thi Alanis patch, l 14:00: Route: [place] TOP, Drug form: ERFILM, Daily, Dosing Weight [...] Spencer 5 mL, Memoria Posiflush 12-29 Philip Reston Route: l SF 14:00: IVP, Drug Form: INJ, Q12H, Start date: 12/29/12 9:00:00, Duration: 30 day, Stop date: 01/27/13 21:00:00 nicotine 2012-0 No Татьяна Yen 7 mg, 1 Mem oria 12-29 Thi Alanis patch, l 14:00: Route: [place] TOP, Drug form: ERFILM, Daily, Dosing Weight 54.545, kg, Start date: 12/29/12 9:00:00, Duration: 30 day, Stop date: 01/27/13 9:00:00 multivitami No Татьяна Yen 1 tab, Caitlin emoria n 31 Thi Alanis Route: PO, l 14:00: Dosing [...] Spencer 5 mL, Memoria Posiflush 12-29 Philip Reston Route: l SF 14:00: IVP, Drug Form: [...] 5 day, Stop date: 01/02/13 9:00:00 thiamine 2013-0 No Татьяна Yen 100 mg, Mem oria 8-31 Thi Alanis Route: PO, l 14:00: Daily, Dosing Weight 54.545, kg, Start date: 12/29/12 9:00:00, Duration: 5 day, Stop date: 01/02/13 9:00:00 BD 0 No Spencer 5 mL, Memoria Posiflush 8-31 Philip Reston Route: l SF 14:00: IVP, Drug Form: [...] Spencer 5 mL, Memoria Posiflush 8-31 Philip Reston Route: l SF 14:00: IVP, Drug Bryson [...] Spencer 5 mL, Memoria Posiflush -31 Philip Reston Route: l SF 14:00: IVP, Drug Form: INJ, Q12H, Start date: 12/29/12 9:00:00, Duration: 30 day, Stop date: 01/27/13 21:00:00 nicotine 2012-0 No Татьяна Yen 7 mg, 1 Mem oria 8-31 Thi Alanis patch, l 14:00: Route: [place] TOP, Drug form: ERFILM, Daily, Dosing Weight [...] Spencer 5 mL, Memoria Posiflush 12-29 Philip Reston Route: l SF 14:00: IVP, Drug Form: [...] Yen 100 mg, Mem oria 12-29 Thi Aalnis Route: PO, l 14:00: Daily, Dosing Weight [...] Edward 0.25 mL, l 13:07: Schakett Route: [place] 00 IVP, Drug form: INJ, Q5Min, Dosing [...] ne 12-29 Edward 0.25 mL, l 13:07: Yasminekett Route: [place] 00 IVP, Drug form: INJ, [...] Edward 0.1 mL, l 13:07: Schakett Route: [place] IVP, Drug form: INJ, Q2MIN, Dosing Weight [...] 0.25 mL, l 13:07: [place] Route: Bryson IVP, Drug form: INJ, Q5Min, Dosing Weight [...] Edward 0.1 mL, l 13:07: Schakett Route: [place] IVP, Drug form: INJ, Q2MIN, Dosing Weight [...] Edward 0.25 mL, l 13:07: Schakett Route: [place] 00 IVP, Drug form: INJ, Q5Min, Dosing [...] Edward 0.25 mL, l 13:07: Schakett Route: [place] 00 IVP, Drug form: INJ, Q5Min, Dosing [...] Edward 0.1 mL, l 13:07: Schakett Route: [place] 00 IVP, Drug form: INJ, Q2MIN, Dosing [...] Edward 0.25 mL, l 13:07: Schakett Route: [place] 00 IVP, Drug form: INJ, Q5Min, Dosing [...] 8:06:00 ondansetron No Gato 4 mg, 2 moria 12-29 Edward mL, Route: l 13:07: [place] IVP, Drug Herm boaz form: INJ, ONCE, Dosing Weight 54.545, kg, PRN Nausea & Vomiting, Start date: 12/29/12 8:07:00 naloxone No Gato 0.04 mg, Magdaleno pilo 12-29 Edward 0.1 mL, l 13:07: Schakett Route: [place] 00 IVP, Drug form: INJ, Q2MIN, Dosing [...] times hydromorpho No Gato 0.5 mg, Me patela ne 12-29 Edward 0.25 mL, l 13:07: Schakett Route: [place] IVP, Drug form: INJ, Q5Min, Dosing Weight [...] Thi Alanis tab, l 13:00: Route: PO, [place] 00 Drug form: ERTAB, ONCE, Dosing Weight [...] Thi Alanis tab, l 13:00: Route: PO, [place] 00 Drug form: ERTAB, ONCE, Dosing Weight 54.545, kg, Priority: Routine, Start date: 12/29/12 8:00:00, Stop date: 12/29/12 8:00:00 potassium 2013-0 No Татьяна Yen 40 mEq, 2 Memoria chloride 8-31 Thi Alanis tab, l 13:00: Route: PO, [place] 00 Drug form: ERTAB, ONCE, Dosing Weight 54.545, kg, Priority: Routine, Start date: 12/29/12 8:00:00, Stop date: 12/29/12 8:00:00 potassium 2012-0 No Татьяна Yen 40 mEq, 2 Memoria chloride 8-31 Thi Alanis tab, l 13:00: Route: PO, [place] 00 Drug form: ERTAB, ONCE, Dosing Weight 54.545, kg, Priority: Routine, Start date: 12/29/12 8:00:00, Stop date: 12/29/12 8:00:00 potassium 2013-0 No Татьяна Yen 40 mEq, 2 Memoria chloride 8-31 Thi Alanis tab, l 13:00: Route: PO, [place] 00 Drug form: ERTAB, ONCE, Dosing Weight 54.545, kg, Priority: Routine, Start date: 12/29/12 8:00:00, Stop date: 12/29/12 8:00:00 potassium 2013-0 No Татьяна Yen 40 mEq, 2 Memoria chloride 8-31 Thi Alanis tab, l 13:00: Route: PO, [place] 00 Drug form: ERTAB, ONCE, Dosing Weight [...] Thi Alanis tab, l 13:00: Route: PO, [place] 00 Drug form: ERTAB, ONCE, Dosing Weight 54.545, kg, Priority: Routine, Start date: 12/29/12 8:00:00, Stop date: 12/29/12 8:00:00 [place] 0 No Татьяна Yen 1 tab, Memoria 10/325 oral 8-31 Thi Alanis Route: PO, l tablet 11:00: Drug Form: Karley nn 00 TAB, Dosing Weight 54.545, kg, Q6H, Start date: 12/29/12 6:00:00, Duration: 30 day, Stop date: 01/28/13 0:00:00 [place] No Татьяна Yen 1 tab, Memoria 10/325 oral 8-31 Thi Alanis Route: PO, l tablet 11:00: Drug Form: Karley nn 00 TAB, Dosing Weight 54.545, kg, Q6H, Start date: 12/29/12 6:00:00, Duration: 30 day, Stop date: 01/28/13 0:00:00 [place] 0 No Татьяна Yen 1 tab, Memoria 10/325 oral 8-31 Thi Alanis Route: PO, l tablet 11:00: Drug Form: Karley nn 00 TAB, Dosing Weight 54.545, kg, Q6H, Start date: 12/29/12 6:00:00, Duration: 30 day, Stop date: 01/28/13 0:00:00 [place] 0 No Татьяна Yen 1 tab, Memoria 10/325 oral 8-31 Thi Alanis Route: PO, l tablet 11:00: Drug Form: Karley nn 00 TAB, Dosing Weight 54.545, kg, Q6H, Start date: 12/29/12 6:00:00, Duration: 30 day, Stop date: 01/28/13 0:00:00 [place] 0 No Татьяна Yen 1 tab, Memoria 10/325 oral 8-31 Thi Alanis Route: PO, l tablet 11:00: Drug Form: Karley nn 00 TAB, Dosing Weight 54.545, kg, Q6H, Start date: 12/29/12 6:00:00, Duration: 30 day, Stop date: 01/28/13 0:00:00 [place] 0 No Татьяна Yen 1 tab, Memoria 10/325 oral 8-31 Thi Alanis Route: PO, l tablet 11:00: Drug Form: Karley nn 00 TAB, Dosing Weight 54.545, kg, Q6H, Start date: 12/29/12 6:00:00, Duration: 30 day, Stop date: 01/28/13 0:00:00 [place] 0 No Татьяна Yen 1 tab, Memoria 10/325 oral 8-31 Thi Alanis Route: PO, l tablet 11:00: Drug Form: Karley nn 00 TAB, Dosing Weight 54.545, kg, Q6H, Start date: 12/29/12 6:00:00, Duration: 30 day, Stop date: 01/28/13 0:00:00 [place] 0 No Татьяна Yen 1 tab, Memoria 10/325 oral 8-31 Thi Alanis Route: PO, l tablet 11:00: Drug Form: Karley nn 00 TAB, Dosing Weight 54.545, kg, Q6H, Start date: 12/29/12 6:00:00, Duration: 30 day, Stop date: 01/28/13 0:00:00 [place] 0 No Татьяна Yen 1 tab, Memoria 10/325 oral 8-31 Thi Alanis Route: PO, l tablet 11:00: Drug Form: Karley nn 00 TAB, Dosing Weight 54.545, kg, Q6H, Start date: 12/29/12 6:00:00, Duration: 30 day, Stop date: 01/28/13 0:00:00 LORAzepam 2012-0 No Татьяна Yen 0.5 mg, Me moria 8-31 Thi Alanis 0.25 mL, l 10:22: Route: [place] 00 IVP, Drug form: INJ, Q2H, Dosing Weight 54.545, kg, PRN Agitation, Start date: 12/29/12 5:22:00, Duration: 30 day, Stop date: 01/28/13 5:21:00 LORAzepam 2012-0 No Татьяна Yen 0.5 mg, Me moria 8-31 Thi Alanis 0.25 mL, l 10:22: Route: [place] 00 IVP, Drug form: INJ, Q2H, Dosing [...] Thi Alanis 0.25 mL, l 10:22: Route: [place] 00 IVP, Drug form: INJ, Q2H, Dosing Weight 54.545, kg, PRN Agitation, Start date: 12/29/12 5:22:00, Duration: 30 day, Stop date: 01/28/13 5:21:00 LORAzepam 2012-0 No Татьяна Yen 0.5 mg, Me moria 8-31 Thi Alanis 0.25 mL, l 10:22: Route: [place] 00 IVP, Drug form: INJ, Q2H, Dosing Weight 54.545, kg, PRN Agitation, Start date: 12/29/12 5:22:00, Duration: 30 day, Stop date: 01/28/13 5:21:00 LORAzepam 2012-0 No Татьняа Yen 0.5 mg, Me moria 8-31 Thi Alanis 0.25 mL, l 10:22: Route: [place] 00 IVP, Drug form: INJ, Q2H, Dosing Weight 54.545, kg, PRN Agitation, Start date: 12/29/12 5:22:00, Duration: 30 day, Stop date: 01/28/13 5:21:00 LORAzepam 2013-0 No Татьяна Yen 0.5 mg, Me moria 8-31 Thi Alanis 0.25 mL, l 10:22: Route: [place] 00 IVP, Drug form: INJ, Q2H, Dosing [...] Khraish mL, Route: l 09:34: IV, Drug [place] 00 form: INJ, Q4H, Dosing Weight 54.545, [...] Khraish mL, Route: l 09:34: IV, Drug [place] 00 form: INJ, Q4H, Dosing Weight 54.545, kg, PRN as needed for pain, Start date: 12/29/12 4:34:00, Duration: 30 day, Stop date: 01/28/13 4:33:00 normal 2012-0 No Татьяна Yen 1,000 mL, Mem oria saline 0.9% 8-31 Thi Aalnis Rate: 75 l IV 1,000 mL 09:34: [...] Khraish mL, Route: l 09:34: IV, Drug [place] 00 form: INJ, Q4H, Dosing Weight 54.545, [...] 2012-0 No Leona H 2 mg, 1 Mgadaleno pilo Sulfate 8-31 Khraish mL, Route: l 09:34: IV, Drug [place] 00 form: INJ, Q4H, Dosing Weight 54.545, [...] Khraish mL, Route: l 09:34: IV, Drug [place] 00 form: INJ, Q4H, Dosing Weight 54.545, [...] Khraish mL, Route: l 09:34: IV, Drug [place] 00 form: INJ, Q4H, Dosing Weight 54.545, [...] Khraish mL, Route: l 09:34: IV, Drug [place] 00 form: INJ, Q4H, Dosing Weight 54.545, [...] Thi Alanis Route: l 09:32: IVP, Drug [place] 00 Form: INJ, Dosing Weight 54.545, kg, PRN, PRN Line Flush, Start date: 12/29/12 4:32:00, Duration: 30 day, Stop date: 01/28/13 4:31:00 Saline 2012-0 No Татьяна Yen 5 mL, Memoria Flush 0.9% 8-31 Thi Alanis Route: l 09:32: IVP, Drug [place] 00 Form: INJ, Dosing Weight 54.545, kg, PRN, PRN Line Flush, Start date: 12/29/12 4:32:00, Duration: 30 day, Stop date: 01/28/13 4:31:00 Saline 2012-0 No Татьяна Yen 5 mL, Memoria Flush 0.9% 8-31 Thi Alanis Route: l 09:32: IVP, Drug [place] 00 Form: INJ, Dosing Weight 54.545, kg, [...] Thi Alanis Route: l 09:32: IVP, Drug [place] 00 Form: INJ, Dosing Weight 54.545, kg, [...] Thi Alanis tab, l 09:31: Route: PO, [place] 00 Drug form: ERTAB, ONCE, Dosing Weight [...] Thi Alanis tab, l 09:31: Route: PO, [place] 00 Drug form: ERTAB, ONCE, Dosing Weight [...] Thi Alanis tab, l 09:31: Route: PO, [place] 00 Drug form: ERTAB, ONCE, Dosing Weight [...] Thi Alanis tab, l 09:31: Route: PO, [place] 00 Drug form: ERTAB, ONCE, Dosing Weight [...] No Spencer 2 mg, 1 Memori a - Philip [place]on mL, Route: l 06:34: IVP, Drug [place] 00 form: INJ, ONCE, Dosing Weight 54.545, kg, Priority: STAT, Start date: 12/29/12 1:34:00, Stop date: 12/29/12 1:34:00 Ativan 2012-0 No Spencer 2 mg, 1 Memori a 12-29 Philip [place]on mL, Route: l 06:34: IVP, Drug [place] 00 form: INJ, ONCE, Dosing Weight 54.545, kg, Priority: STAT, Start date: 12/29/12 1:34:00, Stop date: 12/29/12 1:34:00 Ativan 2012-0 No Spencer 2 mg, 1 Memori a 12-29 Philip [place] mL, Route: l 06:34: IVP, Drug [place] 00 form: INJ, ONCE, Dosing Weight 54.545, kg, Priority: STAT, Start date: 12/29/12 1:34:00, Stop date: 12/29/12 1:34:00 Ativan 2012-0 No Spencer 2 mg, 1 Memori a - Philip [place]on mL, Route: l 06:34: IVP, Drug [place] 00 form: INJ, ONCE, Dosing Weight 54.545, kg, Priority: STAT, Start date: 12/29/12 1:34:00, Stop date: 12/29/12 1:34:00 Ativan 2012-0 No Spencer 2 mg, 1 Memori a - Philip [place]on mL, Route: l 06:34: IVP, Drug [place] 00 form: INJ, ONCE, Dosing Weight 54.545, kg, Priority: STAT, Start date: 12/29/12 1:34:00, Stop date: 12/29/12 1:34:00 Ativan 2012-0 No Spencer 2 mg, 1 Memori a 8-31 Philip [place]on mL, Route: l 06:34: IVP, Drug [place] 00 form: INJ, ONCE, Dosing Weight 54.545, kg, Priority: STAT, Start date: 12/29/12 1:34:00, Stop date: 12/29/12 1:34:00 Ativan 2012-0 No Spencer 2 mg, 1 Memori a 8-31 Philip [place]on mL, Route: l 06:34: IVP, Drug [place] 00 form: INJ, ONCE, Dosing Weight 54.545, kg, Priority: STAT, Start date: 12/29/12 1:34:00, Stop date: 12/29/12 1:34:00 Ativan 2012-0 No Spencer 2 mg, 1 Memori a 8-31 Philip [place]on mL, Route: l 06:34: IVP, Drug [place] 00 form: INJ, ONCE, Dosing Weight 54.545, kg, Priority: STAT, Start date: 12/29/12 1:34:00, Stop date: 12/29/12 1:34:00 Ativan 2012-0 No Spencer 2 mg, 1 Memori a 8-31 Philip Reston mL, Route: l 06:34: IVP, Drug [place] 00 form: INJ, ONCE, Dosing Weight 54.545, kg, Priority: STAT, Start date: 12/29/12 1:34:00, Stop date: 12/29/12 1:34:00 Ancef 2012-0 No Spencer 1 gm, Memoria 8-31 Philip Reston Route: l 06:16: IVPB, Drug [place] 00 form: PDR/INJ, ONCE, Dosing Weight 54.545, kg, Priority: STAT, Start date: 12/29/12 1:16:00, Stop date: 12/29/12 1:16:00 gentamicin 2012-0 No Spencer 272 mg, Me moria + Sodium 8-31 Philip Reston 6.8 mL, l Chloride 06:16: Route: Bry[place] 0.9% IV 100 00 IVPB, mL ONCE, Dosing Weight 54.545, kg, Priority: STAT, Start date: 12/29/12 1:16:00, Stop date: 12/29/12 1:16:00 Ancef 2012-0 No [place] 1 gm, Memoria 8-31 [place] Route: l 06:16: IVPB, Drug [place] form: PDR/INJ, ONCE, Dosing Weight 54.545, kg, Priority: STAT, Start date: 12/29/12 1:16:00, Stop date: 12/29/12 1:16:00 gentamicin 2012-0 No [place] 272 mg, Me moria + Sodium 8-31 [place] 6.8 mL, l Chloride 06:16: Route: [place] 0.9% IV 100 00 IVPB, mL ONCE, Dosing Weight 54.545, kg, Priority: STAT, Start date: 12/29/12 1:16:00, Stop date: 12/29/12 1:16:00 Ancef 0 No [place] 1 gm, Memoria 8-31 [place] Route: l 06:16: IVPB, Drug [place] 00 form: PDR/INJ, ONCE, Dosing Weight 54.545, kg, Priority: STAT, Start date: 12/29/12 1:16:00, Stop date: 12/29/12 1:16:00 gentamicin 2012-0 No [place] 272 mg, Me moria + Sodium 8-31 [place] 6.8 mL, l Chloride 06:16: Route: [place] 0.9% IV 100 00 IVPB, mL ONCE, Dosing Weight 54.545, kg, Priority: STAT, Start date: 12/29/12 1:16:00, Stop date: 12/29/12 1:16:00 Ancef 0 No [place] 1 gm, Memoria 8-31 [place] Route: l 06:16: IVPB, Drug [place] 00 form: PDR/INJ, ONCE, Dosing Weight 54.545, kg, Priority: STAT, Start date: 12/29/12 1:16:00, Stop date: 12/29/12 1:16:00 gentamicin 2012-0 No [place] 272 mg, Me moria + Sodium 8-31 [place] 6.8 mL, l Chloride 06:16: Route: [place] 0.9% IV 100 00 IVPB, mL ONCE, Dosing Weight 54.545, kg, Priority: STAT, Start date: 12/29/12 1:16:00, Stop date: 12/29/12 1:16:00 Ancef 0 No [place] 1 gm, Memoria 8-31 [place] Route: l 06:16: IVPB, Drug [place] 00 form: PDR/INJ, ONCE, Dosing Weight 54.545, kg, Priority: STAT, Start date: 12/29/12 1:16:00, Stop date: 12/29/12 1:16:00 gentamicin 2012-0 No [place] 272 mg, Me moria + Sodium 8-31 [place] 6.8 mL, l Chloride 06:16: Route: Bryson 0.9% IV 100 00 IVPB, mL ONCE, Dosing Weight 54.545, kg, Priority: STAT, Start date: 12/29/12 1:16:00, Stop date: 12/29/12 1:16:00 Ancef 0 No Spencer 1 gm, [facility] 8-31 [facility] Route: l 06:16: IVPB, Drug [place] 00 form: PDR/INJ, ONCE, Dosing Weight 54.545, kg, Priority: STAT, Start date: 12/29/12 1:16:00, Stop date: 12/29/12 1:16:00 gentamicin 2012-0 No Spencer 272 mg, Me moria + Sodium 8-31 [facility] 6.8 mL, l Chloride 06:16: Route: [place] 0.9% IV 100 00 IVPB, mL ONCE, Dosing Weight 54.545, kg, Priority: STAT, Start date: 12/29/12 1:16:00, Stop date: 12/29/12 1:16:00 Ancef 0 No Spencer 1 gm, Memoria 8-31 [facility] Route: l 06:16: IVPB, Drug [place] 00 form: PDR/INJ, ONCE, Dosing Weight 54.545, kg, Priority: STAT, Start date: 12/29/12 1:16:00, Stop date: 12/29/12 1:16:00 gentamicin 0 No [place] 272 mg, Me moria + Sodium 8-31 [facility] 6.8 mL, l Chloride 06:16: Route: [place] 0.9% IV 100 00 IVPB, mL ONCE, Dosing Weight 54.545, kg, Priority: STAT, Start date: 12/29/12 1:16:00, Stop date: 12/29/12 1:16:00 Ancef 2012-0 No Spencer 1 gm, Memoria 8-31 [facility] Route: l 06:16: IVPB, Drug [place] 00 form: PDR/INJ, ONCE, Dosing Weight 54.545, kg, Priority: STAT, Start date: 12/29/12 1:16:00, Stop date: 12/29/12 1:16:00 gentamicin 0 No [place] 272 mg, Me moria + Sodium 8-31 [facility] 6.8 mL, l Chloride 06:16: Route: [place] 0.9% IV 100 00 IVPB, mL ONCE, Dosing Weight 54.545, kg, Priority: STAT, Start date: 12/29/12 1:16:00, Stop date: 12/29/12 1:16:00 Ancef 0 No Spencer 1 gm, Memoria 8- [facility] Route: l 06:16: IVPB, Drug [place] form: PDR/INJ, ONCE, Dosing Weight 54.545, kg, Priority: STAT, Start date: 12/29/12 1:16:00, Stop date: 12/29/12 1:16:00 gentamicin 0 No [place] 272 mg, Me moria + Sodium 8-31 [facility] 6.8 mL, l Chloride 06:16: Route: [place] 0.9% IV 100 00 IVPB, mL ONCE, Dosing Weight 54.545, kg, Priority: STAT, Start date: 12/29/12 1:16:00, Stop date: 12/29/12 1:16:00 lidocaine-e 2012-0 No Spencer 1 ml, Mem oria pi 8- [facility] Route: l 1%-1:[id number] 05:42: SUB-Q, [facility] boaz 00 Drug Form: SOLN, Dosing Weight 54.545, kg, ONCE, STAT, Start date: 12/29/12 0:42:00, Stop date: 12/29/12 0:42:00 lidocaine-e 2012-0 No Spencer 1 ml, Mem oria pi 8 [facility] Route: l 1%-1:[id number] 05:42: SUB-Q, [facility] boaz 00 Drug Form: SOLN, Dosing Weight 54.545, kg, ONCE, STAT, Start date: 12/29/12 0:42:00, Stop date: 12/29/12 0:42:00 lidocaine-e No Spencer 1 ml, Mem oria pi 8 [facility] Route: l 1%-1:[id number] 05:42: SUB-Q, [facility] boaz 00 Drug Form: SOLN, Dosing Weight 54.545, kg, ONCE, STAT, Start date: 12/29/12 0:42:00, Stop date: 12/29/12 0:42:00 lidocaine-e No [place] 1 ml, Mem oria pi 8 [facility] Route: l 1%-1:[id number] 05:42: SUB-Q, [facility] boaz 00 Drug Form: SOLN, Dosing Weight 54.545, kg, ONCE, STAT, Start date: 12/29/12 0:42:00, Stop date: 12/29/12 0:42:00 lidocaine-e No [place] 1 ml, Mem oria pi 8- [facility] Route: l 1%-1:[id number] 05:42: SUB-Q, [facility] boaz 00 Drug Form: SOLN, Dosing Weight 54.545, kg, ONCE, STAT, Start date: 12/29/12 0:42:00, Stop date: 12/29/12 0:42:00 lidocaine-e 0 No [place] 1 ml, Mem oria pi 8- [facility] Route: l 1%-1:[id number] 05:42: SUB-Q, [facility] boaz 00 Drug Form: SOLN, Dosing Weight 54.545, kg, ONCE, STAT, Start date: 12/29/12 0:42:00, Stop date: 12/29/12 0:42:00 lidocaine-e 2012-0 No Spencer 1 ml, Mem oria pi 8-31 [facility] Route: l 1%-1:032125 05:42: SUB-Q, [facility] boaz 00 Drug Form: SOLN, Dosing Weight 54.545, kg, ONCE, STAT, Start date: 12/29/12 0:42:00, Stop date: 12/29/12 0:42:00 lidocaine-e 2012-0 No Spencer 1 ml, Mem oria pi 8- [facility] Route: l 1%-1:[id number] 05:42: SUB-Q, [facility] boaz 00 Drug Form: SOLN, Dosing Weight 54.545, kg, ONCE, STAT, Start date: 12/29/12 0:42:00, Stop date: 12/29/12 0:42:00 lidocaine-e 2012-0 No Spencer 1 ml, Mem oria pi 8-31 [facility] Route: l 1%-1:[id number] 05:42: SUB-Q, [facility] boaz 00 Drug Form: SOLN, Dosing Weight 54.545, kg, ONCE, STAT, Start date: 12/29/12 0:42:00, Stop date: 12/29/12 0:42:00 Dilaudid 2012-0 No Spencer 2 mg, 1 Magdaleno pilo 8-31 [facility] mL, Route: l 05:41: IV, Drug [place] 00 form: INJ, ONCE, Dosing Weight 54.545, kg, Start date: 12/29/12 0:41:00, Stop date: 12/29/12 0:41:00 Dilaudid 2012-0 No Spencer 2 mg, 1 Magdaleno pilo 8-31 [facility] mL, Route: l 05:41: IV, Drug [place] 00 form: INJ, ONCE, Dosing Weight 54.545, kg, Start date: 12/29/12 0:41:00, Stop date: 12/29/12 0:41:00 Dilaudid 2012-0 No Spencer 2 mg, 1 Magdaleno pilo 8-31 [facility] mL, Route: l 05:41: IV, Drug [place] 00 form: INJ, ONCE, Dosing Weight 54.545, kg, Start date: 12/29/12 0:41:00, Stop date: 12/29/12 0:41:00 Dilaudid 2012-0 No Spencer 2 mg, 1 Magdaleno pilo 8-31 [facility] mL, Route: l 05:41: IV, Drug [place] 00 form: INJ, ONCE, Dosing Weight 54.545, kg, Start date: 12/29/12 0:41:00, Stop date: 12/29/12 0:41:00 Dilaudid 2012-0 No Spencer 2 mg, 1 Amgdaleno pilo 8-31 [facility] mL, Route: l 05:41: IV, Drug [place] 00 form: INJ, ONCE, Dosing Weight 54.545, kg, Start date: 12/29/12 0:41:00, Stop date: 12/29/12 0:41:00 Dilaudid 2012-0 No Spencer 2 mg, 1 Magdaleno pilo 8-31 [facility] mL, Route: l 05:41: IV, Drug [place] 00 form: INJ, ONCE, Dosing Weight 54.545, kg, Start date: 12/29/12 0:41:00, Stop date: 12/29/12 0:41:00 Dilaudid 0 No [place] 2 mg, 1 Magdaleno pilo 8-31 [facility] mL, Route: l 05:41: IV, Drug [place] 00 form: INJ, ONCE, Dosing Weight 54.545, kg, Start date: 12/29/12 0:41:00, Stop date: 12/29/12 0:41:00 Dilaudid 2012-0 No Spencer 2 mg, 1 Magdaleno pilo 8-31 [facility] mL, Route: l 05:41: IV, Drug [place] 00 form: INJ, ONCE, Dosing Weight 54.545, kg, Start date: 12/29/12 0:41:00, Stop date: 12/29/12 0:41:00 Dilaudid 2012-0 No [place] 2 mg, 1 Magdaleno pilo 8-31 [facility] mL, Route: l 05:41: IV, Drug [place] 00 form: INJ, ONCE, Dosing Weight 54.545, kg, Start date: 12/29/12 0:41:00, Stop date: 12/29/12 0:41:00 Dilaudid 2012-0 No [place] 1 mg, 0.5 Me moria 8-31 [facility] mL, Route: l 04:19: IV, Drug [place] 00 form: INJ, ONCE, Dosing Weight 54.545, kg, Start date: 12/28/12 23:19:00, Stop date: 12/28/12 23:19:00 Dilaudid 2012-0 No [place] 1 mg, 0.5 Me moria 8-31 [facility] mL, Route: l 04:19: IV, Drug [place] 00 form: INJ, ONCE, Dosing Weight 54.545, kg, Start date: 12/28/12 23:19:00, Stop date: 12/28/12 23:19:00 Dilaudid 2012-0 No [place] 1 mg, 0.5 Me moria 8-31 [facility] mL, Route: l 04:19: IV, Drug [place] 00 form: INJ, ONCE, Dosing Weight 54.545, kg, Start date: 12/28/12 23:19:00, Stop date: 12/28/12 23:19:00 Dilaudid 0 No [place] 1 mg, 0.5 Me moria 8-31 [facility] mL, Route: l 04:19: IV, Drug [place] 00 form: INJ, ONCE, Dosing Weight 54.545, kg, Start date: 12/28/12 23:19:00, Stop date: 12/28/12 23:19:00 Dilaudid 0 No [place] 1 mg, 0.5 Me moria 8-31 [facility] mL, Route: l 04:19: IV, Drug [place] 00 form: INJ, ONCE, Dosing Weight 54.545, kg, Start date: 12/28/12 23:19:00, Stop date: 12/28/12 23:19:00 Dilaudid 2012-0 No [place] 1 mg, 0.5 Me moria 8-31 [facility] mL, Route: l 04:19: IV, Drug [place] 00 form: INJ, ONCE, Dosing Weight 54.545, kg, Start date: 12/28/12 23:19:00, Stop date: 12/28/12 23:19:00 Dilaudid 2012-0 No Spencer 1 mg, 0.5 Me moria 8-31 [facility] mL, Route: l 04:19: IV, Drug [place] form: INJ, ONCE, Dosing Weight 54.545, kg, Start date: 12/28/12 23:19:00, Stop date: 12/28/12 23:19:00 Dilaudid 2012-0 No Spencer 1 mg, 0.5 Me moria 8-31 [facility] mL, Route: l 04:19: IV, Drug [place] 00 form: INJ, ONCE, Dosing Weight 54.545, kg, Start date: 12/28/12 23:19:00, Stop date: 12/28/12 23:19:00 Dilaudid 2012-0 No Spencer 1 mg, 0.5 Me moria 8-31 [facility] mL, Route: l 04:19: IV, Drug [place] 00 form: INJ, ONCE, Dosing Weight 54.545, kg, Start date: 12/28/12 23:19:00, Stop date: 12/28/12 23:19:00 Sodium 2012-0 No Spencer IV, 1000 Memor ia Chloride 8-31 [facility] ml/hr, l 0.9% IV 03:30: Q1H, Start date: 12/28/12 22:30:00, Duration: 2, 1,000 ml Sodium 2012-0 No Spencer IV, 1000 Memor ia Chloride 8-31 [facility] ml/hr, l 0.9% IV 03:30: Q1H, Start date: 12/28/12 22:30:00, Duration: 2, 1,000 ml Sodium 2012-0 No Spencer IV, 1000 Memor ia Chloride 8-31 [facility] ml/hr, l 0.9% IV 03:30: Q1H, Start date: 12/28/12 22:30:00, Duration: 2, 1,000 ml Sodium 2012-0 No Spencer IV, 1000 Memor ia Chloride 8-31 [facility] ml/hr, l 0.9% IV 03:30: Q1H, Start date: 12/28/12 22:30:00, Duration: 2, 1,000 ml Sodium 2012-0 No Spencer IV, 1000 Memor ia Chloride 8-31 [facility] ml/hr, l 0.9% IV 03:30: Q1H, Start Herm boaz date: 12/28/12 22:30:00, Duration: 2, 1,000 ml Sodium 2012-0 No Spencer IV, 1000 Memor ia Chloride 8-31 [facility] ml/hr, l 0.9% IV 03:30: Q1H, Start Herm date: 12/28/12 22:30:00, Duration: 2, 1,000 ml Sodium 2012-0 No Spencer IV, 1000 Memor ia Chloride 8-31 [facility] ml/hr, l 0.9% IV 03:30: Q1H, Start Herm date: 12/28/12 22:30:00, Duration: 2, 1,000 ml Sodium 2012-0 No Spencer IV, 1000 Memor ia Chloride 8-31 [facility] ml/hr, l 0.9% IV 03:30: Q1H, Start Herm date: 12/28/12 22:30:00, Duration: 2, 1,000 ml Sodium 2012-0 No Spencer IV, 1000 Memor ia Chloride 8-31 [facility] ml/hr, l 0.9% IV 03:30: Q1H, Start Herm date: 12/28/12 22:30:00, Duration: 2, 1,000 ml morphine 2012-0 No Spencer 4 mg, Memori a Sulfate 8-31 [facility] Route: l 03:14: IVP, Drug [place] form: INJ, ONCE, Dosing Weight 54.545, kg, Priority: STAT, Start date: 12/28/12 22:14:00, Stop date: 12/28/12 22:14:00 morphine 2012-0 No Spencer 4 mg, Memori a Sulfate 8-31 [facility] Route: l 03:14: IVP, Drug [place] form: INJ, ONCE, Dosing Weight 54.545, kg, Priority: STAT, Start date: 12/28/12 22:14:00, Stop date: 12/28/12 22:14:00 morphine 2012-0 No Spencer 4 mg, Memori a Sulfate 8-31 [facility] Route: l 03:14: IVP, Drug [place] 00 form: INJ, ONCE, Dosing Weight 54.545, kg, Priority: STAT, Start date: 12/28/12 22:14:00, Stop date: 12/28/12 22:14:00 morphine 2013-0 No Spencer 4 mg, Memori a Sulfate 8-31 [facility] Route: l 03:14: IVP, Drug [place] 00 form: INJ, ONCE, Dosing Weight 54.545, kg, Priority: STAT, Start date: 12/28/12 22:14:00, Stop date: 12/28/12 22:14:00 morphine 2012-0 No Spencer 4 mg, Memori a Sulfate 8-31 [facility] Route: l 03:14: IVP, Drug [place] 00 form: INJ, ONCE, Dosing Weight 54.545, kg, Priority: STAT, Start date: 12/28/12 22:14:00, Stop date: 12/28/12 22:14:00 morphine 2012-0 No [place] 4 mg, Memori a Sulfate 8-31 [facility] Route: l 03:14: IVP, Drug [place] 00 form: INJ, ONCE, Dosing Weight 54.545, kg, Priority: STAT, Start date: 12/28/12 22:14:00, Stop date: 12/28/12 22:14:00 morphine 2012-0 No Spencer 4 mg, Memori a Sulfate 8-31 [facility] Route: l 03:14: IVP, Drug [place] 00 form: INJ, ONCE, Dosing Weight 54.545, kg, Priority: STAT, Start date: 12/28/12 22:14:00, Stop date: 12/28/12 22:14:00 morphine 2012-0 No Spencer 4 mg, Memori a Sulfate 8-31 [facility] Route: l 03:14: IVP, Drug [place] 00 form: INJ, ONCE, Dosing Weight 54.545, kg, Priority: STAT, Start date: 12/28/12 22:14:00, Stop date: 12/28/12 22:14:00 morphine 2012-0 No [place] 4 mg, Memori a Sulfate 8-31 [facility] Route: l 03:14: IVP, Drug [place] 00 form: INJ, ONCE, Dosing Weight 54.545, kg, Priority: STAT, Start date: 12/28/12 22:14:00, Stop date: 12/28/12 22:14:00 NS 2000 mL 2012-0 No [place] 2,000 mL, Memoria 8-31 [facility] Rate: l 02:58: 2,000 [place] 00 ml/hr, Infuse over: 1 hr, Route: IV, Dosing Weight 54.545 kg, Total Volume: 2,000, Start date: 12/28/12 21:58:00, Duration: 1 doses or times, Stop date: 12/28/12 22:57:00, Bolus DoseBolus Dose NS 2000 mL 2012-0 No [place] 2,000 mL, Memoria 8-31 [facility] Rate: l 02:58: 2,000 [place] 00 ml/hr, Infuse over: 1 hr, Route: IV, Dosing Weight 54.545 kg, Total Volume: 2,000, Start date: 12/28/12 21:58:00, Duration: 1 doses or times, Stop date: 12/28/12 22:57:00, Bolus DoseBolus Dose NS 2000 mL 2012-0 No [place] 2,000 mL, Memoria 8-31 [facility] Rate: l 02:58: 2,000 [place] 00 ml/hr, Infuse over: 1 hr, Route: IV, Dosing Weight 54.545 kg, Total Volume: 2,000, Start date: 12/28/12 21:58:00, Duration: 1 doses or times, Stop date: 12/28/12 22:57:00, Bolus DoseBolus Dose NS 2000 mL 2012-0 No [place] 2,000 mL, Memoria 8-31 [facility] Rate: l 02:58: 2,000 [place] 00 ml/hr, Infuse over: 1 hr, Route: IV, Dosing Weight 54.545 kg, Total Volume: 2,000, Start date: 12/28/12 21:58:00, Duration: 1 doses or times, Stop date: 12/28/12 22:57:00, Bolus DoseBolus Dose NS 2000 mL 2012-0 No Spencer 2,000 mL, Memoria 8-31 [facility] Rate: l 02:58: 2,000 [place] 00 ml/hr, Infuse over: 1 hr, Route: IV, Dosing Weight 54.545 kg, Total Volume: 2,000, Start date: 12/28/12 21:58:00, Duration: 1 doses or times, Stop date: 12/28/12 22:57:00, Bolus DoseBolus Dose NS 2000 mL 2012-0 No [place] 2,000 mL, Memoria 8-31 [facility] Rate: l 02:58: 2,000 [place] 00 ml/hr, Infuse over: 1 hr, Route: IV, Dosing Weight 54.545 kg, Total Volume: 2,000, Start date: 12/28/12 21:58:00, Duration: 1 doses or times, Stop date: 12/28/12 22:57:00, Bolus DoseBolus Dose NS 2000 mL 2012-0 No [place] 2,000 mL, Memoria 8-31 [facility] Rate: l 02:58: 2,000 [place] 00 ml/hr, Infuse over: 1 hr, Route: IV, Dosing Weight 54.545 kg, Total Volume: 2,000, Start date: 12/28/12 21:58:00, Duration: 1 doses or times, Stop date: 12/28/12 22:57:00, Bolus DoseBolus Dose NS 2000 mL 2012-0 No Spencer 2,000 mL, Memoria 8-31 [facility] Rate: l 02:58: 2,000 [place] 00 ml/hr, Infuse over: 1 hr, Route: IV, Dosing Weight 54.545 kg, Total Volume: 2,000, Start date: 12/28/12 21:58:00, Duration: 1 doses or times, Stop date: 12/28/12 22:57:00, Bolus DoseBolus Dose NS 2000 mL 2012-0 No Spencer 2,000 mL, Memoria 8-31 [facility] Rate: l 02:58: 2,000 [place] 00 ml/hr, Infuse over: 1 hr, Route: IV, Dosing Weight 54.545 kg, Total Volume: 2,000, Start date: 12/28/12 21:58:00, Duration: 1 doses or times, Stop date: 12/28/12 22:57:00, Bolus DoseBolus Dose Visipaque No Spencer 63 mL, Magdaleno pilo 320mg/ml 8-31 [facility] Route: l 01:59: IVP, Drug [place] Form: SOLN, kg, ONCALL, STAT, Start date: 12/28/12 20:59:00, Duration: 1 doses or times, Weight = 40 - 59kg -- "To be infused by Radiology Staff ONLY"Weigh t = 40 - 59kg -- "To be infused by Radiology Staff ONLY" Visipaque No Spencer 63 mL, Magdaleno pilo 320mg/ml 8-31 [facility] Route: l 01:59: IVP, Drug [place] Form: SOLN, kg, ONCALL, STAT, Start date: 12/28/12 20:59:00, Duration: 1 doses or times, Weight = 40 - 59kg -- "To be infused by Radiology Staff ONLY"Weigh t = 40 - 59kg -- "To be infused by Radiology Staff ONLY" Visipaque No [place] 63 mL, Magdaleno pilo 320mg/ml 8-31 [facility] Route: l 01:59: IVP, Drug [place] Form: SOLN, kg, ONCALL, STAT, Start date: 12/28/12 20:59:00, Duration: 1 doses or times, Weight = 40 - 59kg -- "To be infused by Radiology Staff ONLY"Weigh t = 40 - 59kg -- "To be infused by Radiology Staff ONLY" Visipaque No [place] 63 mL, Magdaleno pilo 320mg/ml 8-31 [facility] Route: l 01:59: IVP, Drug [place] Form: SOLN, kg, ONCALL, STAT, Start date: 12/28/12 20:59:00, Duration: 1 doses or times, Weight = 40 - 59kg -- "To be infused by Radiology Staff ONLY"Weigh t = 40 - 59kg -- "To be infused by Radiology Staff ONLY" Visipaque No [place] 63 mL, Magdaleno pilo 320mg/ml 8-31 [facility] Route: l 01:59: IVP, Drug [place] Form: SOLN, kg, ONCALL, STAT, Start date: 12/28/12 20:59:00, Duration: 1 doses or times, Weight = 40 - 59kg -- "To be infused by Radiology Staff ONLY"Weigh t = 40 - 59kg -- "To be infused by Radiology Staff ONLY" Visipaque No [place] 63 mL, Magdaleno pilo 320mg/ml 8-31 [facility] Route: l 01:59: IVP, Drug [place] Form: SOLN, kg, ONCALL, STAT, Start date: 12/28/12 20:59:00, Duration: 1 doses or times, Weight = 40 - 59kg -- "To be infused by Radiology Staff ONLY"Weigh t = 40 - 59kg -- "To be infused by Radiology Staff ONLY" Visipaque No [place] 63 mL, Magdaleno pilo 320mg/ml 8-31 [facility] Route: l 01:59: IVP, Drug [place] Form: SOLN, kg, ONCALL, STAT, Start date: 12/28/12 20:59:00, Duration: 1 doses or times, Weight = 40 - 59kg -- "To be infused by Radiology Staff ONLY"Weigh t = 40 - 59kg -- "To be infused by Radiology Staff ONLY" Visipaque No [place] 63 mL, Magdaleno pilo 320mg/ml 8-31 [facility] Route: l 01:59: IVP, Drug [place] Form: SOLN, kg, ONCALL, STAT, Start date: 12/28/12 20:59:00, Duration: 1 doses or times, Weight = 40 - 59kg -- "To be infused by Radiology Staff ONLY"Weigh t = 40 - 59kg -- "To be infused by Radiology Staff ONLY" Visipaque No Spencer 63 mL, Magdaleno pilo 320mg/ml 8-31 [facility] Route: l 01:59: IVP, Drug [place] Form: SOLN, kg, ONCALL, STAT, Start date: 12/28/12 20:59:00, Duration: 1 doses or times, Weight = 40 - 59kg -- "To be infused by Radiology Staff ONLY"Weigh t = 40 - 59kg -- "To be infused by Radiology Staff ONLY" morphine 0 No [place] 4 mg, 1 Magdaleno pilo Sulfate 8-31 [facility] mL, Route: l 01:56: IVP, Drug [place] 00 form: INJ, ONCE, kg, Priority: STAT, Start date: 12/28/12 20:56:00, Stop date: 12/28/12 20:56:00 ondansetron 2012-0 No [place] 4 mg, 2 M emoria 8-31 [facility] mL, Route: l 01:56: IVP, Drug [place] 00 form: INJ, ONCE, kg, Priority: STAT, Start date: 12/28/12 20:56:00, Stop date: 12/28/12 20:56:00 Saline 2012-0 No Spencer 5 ml, Memoria Flush 0.9% - [facility] Route: l 01:56: IVP, Drug [place] 00 Form: INJ, kg, PRN, PRN Line Flush, Administer at least once every 12 hours, Start date: 12/28/12 20:56:00, Duration: 30 day, Stop date: 01/27/13 20:55:00 morphine 2012-0 No [place] 4 mg, 1 Magdaleno pilo Sulfate 8-31 [facility] mL, Route: l 01:56: IVP, Drug [place] 00 form: INJ, ONCE, kg, Priority: STAT, Start date: 12/28/12 20:56:00, Stop date: 12/28/12 20:56:00 ondansetron 2012-0 No [place] 4 mg, 2 M emoria 8-31 [facility] mL, Route: l 01:56: IVP, Drug [place] 00 form: INJ, ONCE, kg, Priority: STAT, Start date: 12/28/12 20:56:00, Stop date: 12/28/12 20:56:00 Saline 2012-0 No [place] 5 ml, Memoria Flush 0.9% 8- [facility] Route: l 01:56: IVP, Drug [place] 00 Form: INJ, kg, PRN, PRN Line Flush, Administer at least once every 12 hours, Start date: 12/28/12 20:56:00, Duration: 30 day, Stop date: 01/27/13 20:55:00 morphine 2012-0 No [place] 4 mg, 1 Magdaleno pilo Sulfate 8-31 [facility] mL, Route: l 01:56: IVP, Drug [place] 00 form: INJ, ONCE, kg, Priority: STAT, Start date: 12/28/12 20:56:00, Stop date: 12/28/12 20:56:00 ondansetron 2012-0 No [place] 4 mg, 2 M emoria 8-31 [facility] mL, Route: l 01:56: IVP, Drug [place] 00 form: INJ, ONCE, kg, Priority: STAT, Start date: 12/28/12 20:56:00, Stop date: 12/28/12 20:56:00 Saline 2012-0 No [place] 5 ml, Memoria Flush 0.9% 8-31 [facility] Route: l 01:56: IVP, Drug [place] 00 Form: INJ, kg, PRN, PRN Line Flush, Administer at least once every 12 hours, Start date: 12/28/12 20:56:00, Duration: 30 day, Stop date: 01/27/13 20:55:00 morphine 2012-0 No [place] 4 mg, 1 Magdaleno pilo Sulfate 8-31 [facility] mL, Route: l 01:56: IVP, Drug [place] 00 form: INJ, ONCE, kg, Priority: STAT, Start date: 12/28/12 20:56:00, Stop date: 12/28/12 20:56:00 ondansetron 2012-0 No [place] 4 mg, 2 M emoria 8-31 [facility] mL, Route: l 01:56: IVP, Drug [place] 00 form: INJ, ONCE, kg, Priority: STAT, Start date: 12/28/12 20:56:00, Stop date: 12/28/12 20:56:00 Saline 2012-0 No [place] 5 ml, Memoria Flush 0.9% 8-31 [facility] Route: l 01:56: IVP, Drug [place] 00 Form: INJ, kg, PRN, PRN Line Flush, Administer at least once every 12 hours, Start date: 12/28/12 20:56:00, Duration: 30 day, Stop date: 01/27/13 20:55:00 morphine 2012-0 No Spencer 4 mg, 1 Magdaleno pilo Sulfate 8-31 [facility] mL, Route: l 01:56: IVP, Drug [place] 00 form: INJ, ONCE, kg, Priority: STAT, Start date: 12/28/12 20:56:00, Stop date: 12/28/12 20:56:00 ondansetron 2012-0 No [place] 4 mg, 2 M emoria 8-31 [facility] mL, Route: l 01:56: IVP, Drug [place] 00 form: INJ, ONCE, kg, Priority: STAT, Start date: 12/28/12 20:56:00, Stop date: 12/28/12 20:56:00 Saline 2012-0 No [place] 5 ml, Memoria Flush 0.9% 8-31 [facility] Route: l 01:56: IVP, Drug [place] 00 Form: INJ, kg, PRN, PRN Line Flush, Administer at least once every 12 hours, Start date: 12/28/12 20:56:00, Duration: 30 day, Stop date: 01/27/13 20:55:00 morphine 2012-0 No [place] 4 mg, 1 Magdaleno pilo Sulfate 8-31 [facility] mL, Route: l 01:56: IVP, Drug [place] 00 form: INJ, ONCE, kg, Priority: STAT, Start date: 12/28/12 20:56:00, Stop date: 12/28/12 20:56:00 ondansetron 2012-0 No [place] 4 mg, 2 M emoria 8-31 [facility] mL, Route: l 01:56: IVP, Drug [place] 00 form: INJ, ONCE, kg, Priority: STAT, Start date: 12/28/12 20:56:00, Stop date: 12/28/12 20:56:00 Sal[place] 2012-0 No [place] 5 ml, Memoria Flush 0.9% 8-31 [facility] Route: l 01:56: IVP, Drug [place] 00 Form: INJ, kg, PRN, PRN Line Flush, Administer at least once every 12 hours, Start date: 12/28/12 20:56:00, Duration: 30 day, Stop date: 01/27/13 20:55:00 morphine 2012-0 No [place] 4 mg, 1 Magdaleno pilo Sulfate 8-31 [facility] mL, Route: l 01:56: IVP, Drug [place] 00 form: INJ, ONCE, kg, Priority: STAT, Start date: 12/28/12 20:56:00, Stop date: 12/28/12 20:56:00 ondansetron 2012-0 No [place] 4 mg, 2 M emoria 8-31 [facility] mL, Route: l 01:56: IVP, Drug [place] 00 form: INJ, ONCE, kg, Priority: STAT, Start date: 12/28/12 20:56:00, Stop date: 12/28/12 20:56:00 Sal[place] 2012-0 No [place] 5 ml, Memoria Flush 0.9% 8-31 [facility] Route: l 01:56: IVP, Drug [place] 00 Form: INJ, kg, PRN, PRN Line Flush, Administer at least once every 12 hours, Start date: 12/28/12 20:56:00, Duration: 30 day, Stop date: 01/27/13 20:55:00 morphine 2012-0 No [place] 4 mg, 1 Magdaleno pilo Sulfate 8-31 [facility] [place] mL, Route: l 01:56: IVP, Drug [place] 00 form: INJ, ONCE, kg, Priority: STAT, Start date: 12/28/12 20:56:00, Stop date: 12/28/12 20:56:00 ondansetron 2012-0 No Spencer 4 mg, 2 M emoria 8-31 [facility] [place] mL, Route: l 01:56: IVP, Drug [place] 00 form: INJ, ONCE, kg, Priority: STAT, Start date: 12/28/12 20:56:00, Stop date: 12/28/12 20:56:00 Saline 2012-0 No Spencer 5 ml, Memoria Flush 0.9% 8-31 [facility] Route: l 01:56: IVP, Drug [place] 00 Form: INJ, kg, PRN, PRN Line Flush, Administer at least once every 12 hours, Start date: 12/28/12 20:56:00, Duration: 30 day, Stop date: 01/27/13 20:55:00 morphine 2012-0 No Spencer 4 mg, 1 Magdaleno pilo Sulfate 12-29 [facility] [place] mL, Route: l 01:56: IVP, Drug [place] 00 form: INJ, ONCE, kg, Priority: STAT, Start date: 12/28/12 20:56:00, Stop date: 12/28/12 20:56:00 ondansetron 2012-0 No [place] 4 mg, 2 M emoria 12-29 [facility] [place] mL, Route: l 01:56: IVP, Drug [place] 00 form: INJ, ONCE, kg, Priority: STAT, Start date: 12/28/12 20:56:00, Stop date: 12/28/12 20:56:00 Saline 2012-0 No [place] 5 ml, Memoria Flush 0.9% 12-29 [facility] [place] Route: l 01:56: IVP, Drug [place] 00 Form: INJ, kg, PRN, PRN Line Flush, Administer at least once every 12 hours, Start date: 12/28/12 20:56:00, Duration: 30 day, Stop date: 01/27/13 20:55:00 Vital Signs Vital Name Observation Time Observation Value Comments Source Systolic blood 2021-05-30 118 mm[Hg] [facility] pressure 08:21:00 [facility] Diastolic blood 2021-05-30 79 mm[Hg] [facility] pressure 08:21:00 [facility] Heart rate 2021-05-30 91 /min [facility] 08::00 [facility] Body temperature 2021-05-30 36.83 Sarah Beth [facility] 08:21:00 [facility] Respiratory rate 2021-05-30 20 /min [facility] 08::00 [facility] Body weight 2021-05-30 56.7 kg [facility] 08::00 [facility] BMI 2021-05-30 18.46 kg/m2 [facility] 08:21:00 [facility] Oxygen saturation 2021-05-30 100 /min [facility] in Arterial blood 08:21:00 [facility] by Pulse oximetry Branch Systolic blood 2022-04-28 128 mm[Hg] [facility] pressure 01:20:01 [facility] Diastolic blood 2022-04-28 75 mm[Hg] [facility] pressure 01:20: [facility] Heart rate 2022-04-28 78 /min [facility] 01:20:01 [facility] Body temperature 2022-04-28 36.22 Sarah [facility] 01:20:01 [facility] Respiratory rate 2022-04-28 17 /min [facility] 01:20:01 [facility] Oxygen saturation 2022-04-28 98 /min [facility] in Arterial blood 01:20:01 [facility] Pulse oximetry Body height 2022-04-27 175.3 cm [facility] 22:09:00 [facility] Body weight 2022-04-27 63.504 kg [facility] 22:09:00 [facility] BMI 2022-04-27 20.67 kg/m2 [facility] 22:09:00 [facility] Systolic blood 2022-03-29 120 mm[Hg] [facility] pressure 16:21:00 Diastolic blood 2022-03-29 87 mm[Hg] [facility] pressure 16:21:00 Heart rate 2022-03-29 98 /min [facility] 16:21:00 Body temperature 2022-03-[address] [facility] 16:21:00 Respiratory rate 2022-03-29 17 /min [facility] 16:21:00 Oxygen saturation 2022-03-29 99 /min [facility] in Arterial blood 16:21:00 by Pulse oximetry Systolic blood 2022-03-10 105 mm[Hg] [facility] pressure 22:00:00 Diastolic blood 2022-03-10 76 mm[Hg] [facility] pressure 22:00:00 Heart rate 2022-03-10 64 /min [facility] 22:00:00 Respiratory rate 2022-03-10 18 /min [facility] 22:00:00 Oxygen saturation 2022-03-10 99 /min [facility] [facility] in Arterial blood 22:00:00 by Pulse oximetry Body temperature 2022-03-[address] [facility] 19:29:00 Body height 2022-03-10 175.3 cm [facility] 05:39:00 Body weight 2022-03-10 58.968 kg [facility] 05:39:00 BMI 2022-03-10 19.20 kg/m2 [facility] 05:39:00 Systolic blood 2022-03-09 120 mm[Hg] [facility] pressure 22:42:22 [facility] Diastolic blood 2022-03-09 79 mm[Hg] [facility] pressure 22:42:22 Hospital Heart rate 2022-03-09 73 /min [facility] 22:42:22 Hospital Body temperature 2022-03-09 36.89 Sarah Beth [facility] 22:42:22 Hospital Respiratory rate 2022-03-09 20 /min [facility] 22:42:22 Hospital Oxygen saturation 2022-03-09 96 /min [facility] in Arterial blood 22:42:22 [facility] oxim[facility] Body height 2022-03-09 172.7 cm [facility] 22:40:00 Hospital Body weight 2022-03-09 62.596 kg [facility] 22:40:00 [facility] BMI 2022-03-09 20.98 kg/m2 [facility] 22:40:00 [facility] Systolic blood 2022-02-04 108 mm[Hg] [facility] pressure 23:16:00 Diastolic blood 2022-02-04 71 mm[Hg] [facility] pressure 23:16:00 Heart rate 2022-02-04 59 /min Notify RN Jaz[facility] 23:16:00 Body temperature 2022-02-[address] [facility] 23:16:00 Respiratory rate 2022-02-04 19 /min [facility] 23:16:00 Oxygen saturation 2022-02-04 100 /min [facility] in Arterial blood 23:16:00 by Pulse oximetry Body height 2022-02-04 175.3 cm [facility] 09:28:00 Body weight 2022-02-04 65.8 kg [facility] 09:28:00 BMI 2022-02-04 21.42 kg/m2 [facility] 09:28:00 Systolic blood 2022-01-13 122 mm[Hg] [facility] pressure 02:14:00 [facility] Diastolic blood 2022-01-13 84 mm[Hg] [facility] pressure 02:14:00 [facility] Heart rate 2022-01-13 79 /min [facility] 02:14:00 [facility] Body temperature 2022-01-13 36.56 Sarah Beth [facility] 02:14:00 Hospital Respiratory rate 2022-01-13 16 /min [facility] 02:14:00 Hospital Oxygen saturation 2022-01-13 95 /min [facility] in Arterial blood 02:14:00 [facility]xim[facility] Systolic (mm Hg) 2019-12-15 [facility] 06:24:00 Diastolic (mm Hg) 2019-12-15 [facility] 06:24:00 Respitory Rate 2019-12-15 [facility] [...] n 01:48:00 Temperature Oral 2012-12-31 98.3 F [facility] Dwight rmann (F) 01:48:00 Diastolic (mm Hg) 2012-12-30 [facility] 20:21:00 Systolic (mm Hg) 2012-12-30 [facility] Dwight rmann 20:21:00 Respitory Rate 2012-12-30 Jennifer Jenkins boaz 20:21:00 Heart Rate 2012-12-30 Jennifer Jenkinsan n 20:21:00 Temperature Oral 2012-12-30 97.5 F Jennifer Quintanilla rmann (F) 20:21:00 Heart Rate 2012-12-30 Jennifer Abdiaziz n 16:18:00 Temperature Oral 2012-12-30 97 F Jennifer Quintanilla rmann (F) 16:18:00 Respitory Rate 2012-12-30 [facility] 16:18:00 Diastolic (mm Hg) 2012-12-30 [facility]a ermann 16:18:00 Systolic (mm Hg) 2012-12-30 Jennifer Quintanilla rmann 16:18:00 Height 2012-12-29 175.26 cm [facility] Abdiaziz n 02:00:00 Weight 2012-12-29 [facility] Abdiaziz n 02:00:00 Procedures Procedure Date / Time Performing Clinician Source Performed RESPIRATORY PATHOGEN 2022-04-27 23:32:00 [facility] PANEL WITH COVID-19 [facility] RT-PCR INFLUENZA ANTIGEN 2022-04-27 23:32:00 [facility] GROUP A STREP, RAPID 2022-04-27 23:32:00 [facility] ANTIGEN [facility] STREP SCREEN CULTURE 2022-04-27 23:32:00 [facility] XR NECK SOFT TISSUE 2022-04-27 23:09:45 [facility] XR CHEST 2 VW 2022-04-27 23:09:20 [facility] Ho spital [facility] VALPROIC ACID 2022-03-14 06:16:00 Holly Jarrell alth COMPREHENSIVE METABOLIC 2022-03-13 07:33:00 [facility] PANEL LIPID PROFILE 2022-03-13 07:33:00 Holly Jarrell alth HEMOGLOBIN A1C 2022-03-13 07:33:00 Holly Jarrell SYPHILIS MONITOR FOR 2022-03-13 07:33:00 Holly Jarrell [facility] TREATMENT THYROID STIMULATING 2022-03-13 07:33:00 Holly Jarrell [facility] HORMONE (TSH) HIV AG/AB COMBO ROUTINE 2022-03-13 07:33:00 Holly Jarrell [facility] SCREENING BMP POC 2022-03-10 11:48:00 Emre Acuna lt CREATININE POC 2022-03-10 11:47:00 Emre Acuna [facility] SARS-COV-2, FLU A/B, RSV 2022-03-10 11:35:00 [facility] CORONAVIRUS, COVID-19, 2022-03-10 11:35:00 [facility] PORTIA CBC WITH PLATELET AND 2022-03-09 23:22:00 [facility] DIFFERENTIAL BASIC METABOLIC PANEL 2022-03-09 23:22:00 [facility] ACETAMINOPHEN LEVEL 2022-03-09 23:22:00 [facility] SALICYLATE LEVEL 2022-03-09 23:22:00 [facility] ESTIMATED GFR 2022-03-09 23:22:00 [facility] XRAY CHEST 1 VIEW - TB 2022-03-05 05:15:14 [facility] SCREEN (AFFLIATE) SARS-COV-2 PCR RAPID TEST 2022-03-05 00:00:00 Provider, Historic [facility] Med POC GLUCOSE-AFFILIATE 2022-03-05 00:00:00 Provider, Historical [facility] MANUALLY ENTERED Med POC GLUCOSE-AFFILIATE 2022-02-28 00:00:00 Provider, Historical [facility] MANUALLY ENTERED Med CONSULT CLINICAL CASE 2022-02-04 12:29:21 [facility] MANAGEMENT (RN/SW) XRAY FOOT 3 VIEWS MIN 2022-02-04 10:59:00 [facility] XRAY ANKLE 3 VIEW MIN 2022-02-04 10:59:00 [facility] URINE CULTURE 2022-01-13 05:32:00 Rehrer, [facility] URINE DRUGS OF ABUSE 2022-01-13 05:32:00 Rehrer, [facility] SCREEN URINALYSIS SCREEN AND 2022-01-13 05:32:00 Rehrer, [facility] MICROSCOPY, WITH REFLEX TO CULTURE COVID-19 QUALITATIVE 2022-01-13 03:52:00 Rehrer, [facility] RT-PCR COVID-19 OMICRON VARIANT 2022-01-13 03:52:00 Rehrer, [facility] QUALITATIVE RT-PCR CBC WITH PLATELET AND 2022-01-13 03:52:00 Rehrer, [facility] DIFFERENTIAL COMPREHENSIVE METABOLIC 2022-01-13 03:52:00 Rehrer, [facility] PANEL THYROID STIMULATING 2022-01-13 03:52:00 [facility], [facility] HORMONE T4, FREE 2022-01-13 03:52:00 Rehrer, [facility] ALCOHOL LEVEL, BLOOD 2022-01-13 03:52:00 Rehrer, [facility] ACETAMINOPHEN LEVEL 2022-01-13 03:52:00 Re[facility], [facility] SALICYLATE LEVEL 2022-01-13 03:52:00 Rehrer, [facility] ESTIMATED GFR 2022-01-13 03:52:00 Rehrer, [facility] ECG ED PRELIMINARY 2022-01-13 02:35:02 Rehrer, [facility] INTERPRETATION CONSULT CLINICAL CASE 2022-01-12 20:09:34 [facility] MANAGEMENT (RN/SW) ACETAMINOPHEN 2022-01-12 12:37:00 Inocencia Lozano [facility] 12 LEAD EKG 2022-01-12 11:30:22 Inocencia Lozano [facility] CONSENT/REFUSAL FOR 2021-05-30 08:08:34 Doctor Unassigned, [facility] DIAGNOSIS AND TREATMENT [facility] Plan of Care Planned Activity Planned Date Details Comments Source Future Scheduled 2022-06-19 COVID-19 VACCINE (#1) [facility] Test 02:52:36 [code = COVID-19 VACCINE (#1)] Future Scheduled 2022-06-19 Pneumococcal Vaccine: [facility] Test 02:52:36 Pediatrics (0 to 5 Years) and At-Risk Patients (6 to 64 Years) (1 - PCV) [code = Pneumococcal Vaccine: Pediatrics (0 to 5 Years) and At-Risk Patients (6 to 64 Years) (1 - PCV)] Future Scheduled 2022-06-19 Hepatitis C screening [facility] Test 02:52:36 (procedure) [code = 732355707] Future Scheduled 2022-06-19 INFLUENZA VACCINE [facility] Test 02:52:36 [code = INFLUENZA VACCINE] Future Scheduled 2022-06-19 COVID-19 VACCINE (#1) [facility] Test 02:52:36 [code = COVID-19 VACCINE (#1)] Future Scheduled 2022-06-19 Pneumococcal Vaccine: [facility] Test 02:52:36 Pediatrics (0 to 5 Years) and At-Risk Patients (6 to 64 Years) (1 - PCV) [code = Pneumococcal Vaccine: Pediatrics (0 to 5 Years) and At-Risk Patients (6 to 64 Years) (1 - PCV)] Future Scheduled 2022-06-19 Hepatitis C screening [facility] Test 02:52:36 (procedure) [code = [id number]] Future Scheduled 2022-06-19 INFLUENZA VACCINE [facility] Test 02:52:36 [code = INFLUENZA VACCINE] Future Scheduled 2022-06-19 COVID-19 VACCINE (#1) [facility] Test 02:52:36 [code = COVID-19 VACCINE (#1)] Future Scheduled 2022-06-19 Pneumococcal Vaccine: [facility] Test 02:52:36 Pediatrics (0 to 5 Years) and At-Risk Patients (6 to 64 Years) (1 - PCV) [code = Pneumococcal Vaccine: Pediatrics (0 to 5 Years) and At-Risk Patients (6 to 64 Years) (1 - PCV)] Future Scheduled 2022-06-19 Hepatitis C screening [facility] Test 02:52:36 (procedure) [code = [id number]] Future Scheduled 2022-06-19 INFLUENZA VACCINE Method [facility] Test 02:52:36 [code = INFLUENZA VACCINE] Future Scheduled 2022-06-07 COVID-19 VACCINE (#1) [facility] Test 13:13:57 [code = COVID-19 VACCINE (#1)] Future Scheduled 2022-06-07 Pneumococcal Vaccine: [facility] Test 13:13:57 Pediatrics (0 to 5 Years) and At-Risk Patients (6 to 64 Years) (1 - PCV) [code = Pneumococcal Vaccine: Pediatrics (0 to 5 Years) and At-Risk Patients (6 to 64 Years) (1 - PCV)] Future Scheduled 2022-06-07 Hepatitis C screening [facility] Test 13:13:57 (procedure) [code = [id number]] Future Scheduled 2022-06-07 INFLUENZA VACCINE Method [facility] Test 13:13:57 [code = INFLUENZA VACCINE] Future Scheduled 2022-04-29 COVID-19 VACCINE (#1) [facility] Test 14:17:11 [code = COVID-19 VACCINE (#1)] Future Scheduled 2022-04-29 Pneumococcal Vaccine: [facility] Test 14:17:11 Pediatrics (0 to 5 Years) and At-Risk Patients (6 to 64 Years) (1 - PCV) [code = Pneumococcal Vaccine: Pediatrics (0 to 5 Years) and At-Risk Patients (6 to 64 Years) (1 - PCV)] Future Scheduled 2022-04-29 Hepatitis C screening [facility] Test 14:17:11 (procedure) [code = [id number]] Future Scheduled 2022-04-29 INFLUENZA VACCINE Method [facility] Test 14:17:11 [code = INFLUENZA VACCINE] Future Scheduled 2022-04-14 COVID-19 VACCINE (#1) [facility] Test 22:41:37 [code = COVID-19 VACCINE (#1)] Future Scheduled 2022-04-14 Pneumococcal Vaccine: [facility] Test 22:41:37 Pediatrics (0 to 5 Years) and At-Risk Patients (6 to 64 Years) (1 - PCV) [code = Pneumococcal Vaccine: Pediatrics (0 to 5 Years) and At-Risk Patients (6 to 64 Years) (1 - PCV)] Future Scheduled 2022-04-14 Hepatitis C screening [facility] Test 22:41:37 (procedure) [code = [id number]] Future Scheduled 2022-04-14 INFLUENZA VACCINE Method [facility] Test 22:41:37 [code = INFLUENZA VACCINE] Future Scheduled 2022-03-09 HEPATITIS B VACCINES [facility] Test 19:41:41 (1 of 3 - 3-dose series) [code = HEPATITIS B VACCINES (1 of 3 - 3-dose series)] Future Scheduled 2022-03-09 COVID-19 VACCINE (#1) [facility] Test 19:41:41 [code = COVID-19 VACCINE (#1)] Future Scheduled 2022-03-09 Pneumococcal Vaccine: [facility] Test 19:41:41 Pediatrics (0 to 5 Years) and At-Risk Patients (6 to 64 Years) (1 - PCV) [code = Pneumococcal Vaccine: Pediatrics (0 to 5 Years) and At-Risk Patients (6 to 64 Years) (1 - PCV)] Future Scheduled 2022-03-09 Hepatitis C screening [facility] Test 19:41:41 (procedure) [code = [id number]] Future Scheduled 2022-03-09 INFLUENZA VACCINE Method [facility] Test 19:41:41 [code = INFLUENZA [...] Future Scheduled 2022-01-29 IMM Influenza Seasonal H [facility] Test 00:00:00 (>/= 19 yrs) [code = IMM Influenza Seasonal (>/= 19 yrs)] Future Scheduled 2022-01-13 HEPATITIS B VACCINES [facility] Test 01:43:47 (1 of 3 - 3-dose series) [code = HEPATITIS B VACCINES (1 of 3 - 3-dose series)] Future Scheduled 2022-01-13 COVID-19 VACCINE (#1) [facility] Test 01:43:47 [code = COVID-19 VACCINE (#1)] Future Scheduled 2022-01-13 Pneumococcal Vaccine: [facility] Test 01:43:47 Pediatrics (0 to 5 Years) and At-Risk Patients (6 to 64 Years) (1 - PCV) [code = Pneumococcal Vaccine: Pediatrics (0 to 5 Years) and At-Risk Patients (6 to 64 Years) (1 - PCV)] Future Scheduled 2022-01-13 Hepatitis C screening [facility] Test 01:43:47 (procedure) [code = [id number]] Future Scheduled 2022-01-13 INFLUENZA VACCINE Method [facility] Test 01:43:47 [code = INFLUENZA VACCINE] Future Scheduled 2022-01-13 HEPATITIS B VACCINES [facility] Test 01:43:47 (1 of 3 - 3-dose series) [code = HEPATITIS B VACCINES (1 of 3 - 3-dose series)] Future Scheduled 2022-01-13 COVID-19 VACCINE (#1) [facility] Test 01:43:47 [code = COVID-19 VACCINE (#1)] Future Scheduled 2022-01-13 Pneumococcal Vaccine: [facility] Test 01:43:47 Pediatrics (0 to 5 Years) and At-Risk Patients (6 to 64 Years) (1 - PCV) [code = Pneumococcal Vaccine: Pediatrics (0 to 5 Years) and At-Risk Patients (6 to 64 Years) (1 - PCV)] Future Scheduled 2022-01-13 Hepatitis C screening [facility] Test 01:43:47 (procedure) [code = [id number]] Future Scheduled 2022-01-13 INFLUENZA VACCINE Method [facility] Test 01:43:47 [code = INFLUENZA [...] Department ID 2022-04-27 2022-04-27 Emergency Karl, 1.2.840.1 [id number] [facility] 16:41:00 19:24:[address] [facility] 3.430.2.7 Hospit a .3.048841 l .8 2022-04-27 2022-04-27 Emergency Karl, 1.2.840.1 [id number] [facility] 16:41:00 19:24:[address] [facility] 3.430.2.7 Hospit a .3.653588 l .8 2022-03-30 2022-03-30 Outpatient [facility] [id number] [place] 00:00:00 00:00:00 [facility] 2022-03-10 2022-03-[address], [facility] [id number] [place] 22:17:00 15:10:00 Encounter Wilber Ella Yordy 2022-03-10 2022-03-10 Emergency 1 Emre Acuna [facility] [id number] [place] 06:16:00 22:11:00 [facility] 2022-03-09 2022-03-09 Emergency Yang, 1.2.840.1 [id number] [id number] [facility] 16:47:00 20:21:[address] [facility] 3.430.2.7 Ho spita .3.632705 l .8 2022-03-09 2022-03-09 Emergency Yang, 1.2.840.1 [id number] [id number] [facility] 16:47:00 20:21:[address] Jeremy 3.430.2.7 Ho spita .3.170522 l .8 2022-02-24 2022-02-24 Outpatient [facility] [id number] [place] 00:00:00 00:00:00 [facility] 2022-02-04 2022-02-05 Emergency Karen Barrett [facility] [id number] [place] 23:51:00 00:17:00 Thomas Kelly [facility] 2022-02-04 2022-02-04 Emergency [facility] [id number] [place] 10:18:51 10:59:41 [facility] 2022-01-12 2022-01-13 Emergency Rehrer, 1.2.840.1 [id number] 2099 [id number] [facility] 21:16:00 06:04:00 Dio Jack 66887.1.[address] 3.430.2.7 Hospit a .3.226068 l .8 2022-01-12 2022-01-13 Emergency Rehrer, 1.2.840.1 [id number] 2099 [id number] [facility] 21:16:00 06:04:00 Dio Jack [address]71.1.[address] 3.430.2.7 Hospit a .3.155416 l .8 2022-01-12 2022-01-12 Emergency [facility] [id number] [place] 20:08:00 22:12:00 Cely Mendez 2022-01-12 2022-01-12 Travel 1.2.840.1 1.2.277.534 [id number] [facility] 00:00:00 00:00:[address] 3.430.2.7 0.2.7.3.698 Ho spita .3.794282 084.8 l .8 2022-01-12 2022-01-12 Travel 1.2.840.1 1.2.567.502 [id number] [id number] [facility] 00:00:00 00:00:[address] 3.430.2.7 0.2.7.3.698 Ho spita .3.110000 084.8 l .8 2021-12-30 2021-12-30 Emergency Emergency Richard, [facility] [id number] [facility] 00:14:00 00:14:00 Esteekuman 92 2021-12-30 2021-12-30 Emergency [facility] [id number] [facility] 00:14:00 00:14:00 92 2021-12-29 2021-12-29 Emergency 1.2.840.1 [id number] 2099 [id number] [facility] 00:27:00 01:06:[address] 3.430.2.7 Hospit a .3.245557 l .8 2021-12-29 2021-12-29 Emergency 1.2.840.1 [id number] 2099 [id number] [facility] 00:27:00 01:06:[address] 3.430.2.7 Hospit a .3.146453 l .8 2021-12-29 2021-12-29 Travel 1.2.840.1 1.2.685.932 [id number] [facility] 00:00:00 00:00:[address] 3.430.2.7 0.2.7.3.698 Ho spita .3.823082 084.8 l .8 2021-12-29 2021-12-29 Travel 1.2.840.1 1.2.789.503 [id number] [facility] 00:00:00 00:00:[address] 3.430.2.7 0.2.7.3.698 Ho spita .3.657190 084.8 l .8 2021-05-30 2021-05-30 Emergency [facility] 1.2.588.976 [id number] [facility] 02:35:00 02:50:00 [place] CHANEY 350.1.13.10 [place] 4.2.7.2.686 [facility] [id number] [facility] 084 Branch 2021-05-30 2021-05-30 Emergency X EDE [facility] ERT [id number] Univers 02:35:00 02:50:00 PABLOTAISHALI ity of [facility] 2021-05-30 2021-05-30 Orders Doctor WILBER 1.2.840.114 [id number] Univers 00:00:00 00:00:00 Only Unassigned, ARAMIS 350.1.13.10 ity of [place] [facility] 4.2.7.2.686 Ward as [id number] [facility] 009 Branch 2021-05-30 2021-05-30 Letter WILBER Harris 1.2.354.668 [id number] Univers 00:00:00 00:00:00 (Out) Roshan ARAMIS 350.1.13.10 it y of [facility] 4.2.7.2.686 Ward as [id number] [facility] 019 Branch 2019-12-15 2019-12-15 Emergency [facility] [id number] [facility] 04:20:04 08:22:00 swapnil S[facility] 2019-12-15 2019-12-15 Emergency [facility] [id number] [facility] 04:20:04 08:22:00 swapnil S[facility] 2019-12-14 2019-12-15 Outpatient Carmen [facility] [id number] 23:20:04 03:22:00 Elio Harryh 2019-12-14 2019-12-15 [facility] [id number] Memoria 23:20:00 03:22:00 ELIO Schneider [facility] 2018-04-18 2018-04-18 Emergency [facility] [id number] Memoria 11:54:00 16:31:00 swapnil Sears [facility] 2018-04-18 2018-04-18 Emergency [facility] [id number] Memoria 11:54:00 16:31:00 swapnil Sears [facility] 2018-04-18 2018-04-18 Outpatient Shawna [facility] [id number] 05:54:00 10:31:00 Sb Yostrey 2018-04-12 2018-04-14 Inpatient [facility] [id number] Memoria 21:46:00 21:30:00 swapnil Rodriguez [facility] 2018-04-12 2018-04-14 Inpatient [facility] [id number] [facility] 21:46:00 21:30:00 swapnil Rodriguez [facility] 2018-04-12 2018-04-14 Outpatient Mena [facility] [id number] 15:46:00 15:30:00 Eddie Rodriguez 2016-05-01 2016-05-01 [facility] [id number] Memoria 01:27:00 07:00:00 swapnil Delgado [facility] 2016-05-01 2016-05-01 Emergency [facility] [id number] Memoria 01:27:00 07:00:00 swapnil Delgado [facility] 2016-04-30 2016-05-01 Outpatient SUMMER Lepe 9 [id number] 19:27:00 01:00:00 Hiram Delgado 2016-04-30 2016-04-30 [facility] [id number] Memoria 10:30:00 13:04:00 swapnil Gale [facility] 2016-04-30 2016-04-30 Emergency [facility] [id number] Memoria 10:30:00 13:04:00 swapnil Gale [facility] 2016-04-30 2016-04-30 Outpatient Heide [place] [id number] 04:30:00 07:04:00 Santana 2016-04-07 2016-04-07 [facility] [id number] Memoria 01:26:00 16:46:00 swapnil peace [facility] 2016-04-07 2016-04-07 Emergency [facility] [id number] Memoria 01:26:00 16:46:00 swapnil peace [facility] 2016-04-06 2016-04-07 Outpatient Constantino [facility] [id number] 19:26:00 10:46:00 Mirta andre 2016-01-14 2016-01-14 [facility] [id number] Mem[facility] 02:11:00 08:00:00 swapnil peace [facility] 2016-01-14 2016-01-14 Emergency nullFlavo [facility] [id number] Memoria 02:11:00 08:00:00 r Bryson 01 l [facility] 2016-01-13 2016-01-14 Outpatient Jacob [facility] [id number] 21:11:00 03:00:00 Noemi Shi 2012-12-29 2012-12-30 Inpatient nullFlavo [facility] [id number] Memoria 04:32:00 21:30:00 r Medical 00 l [facility] 2012-12-29 2012-12-30 Inpatient nullFlavo [facility] [id number] Memoria 04:32:00 21:30:00 r Medical 00 l [facility] Results Test Description Test Time Test Comments Results Result Comments Source Strep screen culture 2022-04-30 07:18:00 Test Item Value Reference Range Interpretation Comme nts Strep screen culture No beta hemolytic Sp ecimen InformationSpecimen isolate (test code = Streptococci isolated Source: ThroatSpecimen Site: Not 547-0) otherwise [facility]i [facility] [id number] 07:18:00 Test Item Value Reference Range Interpretation Comments Strep screen No beta hemolytic Specimen culture Streptococci InformationSpec imen isolate (test isolated Source: Throat Specimen code = 547-0) Site: Not othe rwise specified [facility] [id number] 07:18:00 Test Item Value Reference Range Interpretation Comments Strep screen No beta hemolytic Specimen culture Streptococci InformationSpec imen isolate (test isolated Source: Throat Specimen code = 547-0) Site: Not othe rwise specified [facility] [id number] 07:18:00 Test Item Value Reference Range Interpretation Comments Strep screen No beta hemolytic Specimen culture Streptococci InformationSpec imen isolate (test isolated Source: Throat Specimen code = 547-0) Site: Not othe rwise specified [facility]St[facility] screen [id number] 07:18:00 Test Item Value Reference Range Interpretation Comments Strep screen No beta hemolytic Specimen culture Streptococci InformationSpec imen isolate (test isolated Source: Throat Specimen code = 547-0) Site: Not othe rwise specified [facility] HospitalRPR Vbf-[id number] 09:23:21 Test Item Value Reference Range Interpretation Comments RPR Ser Ql (test code = 15814-8) NON-REACTIVE Non-reactive HHSHIV 1+2 Ab+HIV1 p24 Ag SerPl Ql [id number] 08:57:46 Test Item Value Reference Range Interpretation Comments HIV 1+2 Ab+HIV1 p24 Ag SerPl Ql IA NEGATIVE Negative (test code = 52202-5) HHSCoronavirus, CoVID-19, [id number] 13:03:17 Test Item Value Reference Interpretation Comments Range COVID-19 Not Detected Not Detected INTERPRETATION: (SARS-COV-2) (test No detect able code = 64769-1) levels of SARS-CoV-2 Coronavirus (COVID-19) were present [...] its performance characteristics were verified by the [facility] molecular diagnostics laboratory and is authorized for clinical diagnostic use. This laboratory is certified under the Clinical Laboratory Improvement Amendments (CLIA) as qualified to perform high complexity clinical laboratory testing. Lab Interpretation Normal (test code = 39119-2) [facility], [id number] 13:03:17 Test Item Value Reference Interpretation Comments Range COVID-19 Not Detected Not Detected INTERPRETATION: (SARS-COV-2) (test No detect able code = 95194-2) levels of SARS-CoV-2 Coronavirus (COVID-19) were present [...] its performance characteristics were verified by the [facility] molecular diagnostics laboratory and is authorized for clinical diagnostic use. This laboratory is certified under the Clinical Laboratory Improvement Amendments (CLIA) as qualified to perform high complexity clinical laboratory testing. Lab Interpretation Normal (test code = 89510-2) [facility], CoVID-19, [id number] 13:03:17 Test Item Value Reference Interpretation Comments Range COVID-19 Not Detected Not Detected INTERPRETATION: (SARS-COV-2) (test No detect able code = 40224-8) levels of SARS-CoV-2 Coronavirus (COVID-19) were present [...] its performance characteristics were verified by the [facility] molecular diagnostics laboratory and is authorized for clinical diagnostic use. This laboratory is certified under the Clinical Laboratory Improvement Amendments (CLIA) as qualified to perform high complexity clinical laboratory testing. Lab Interpretation Normal (test code = 30975-4) Christian SchwartzCoronavirus, CoVID-19, [id number] 13:03:17 Test Item Value Reference Interpretation Comments Range COVID-19 Not Detected Not Detected INTERPRETATION: (SARS-COV-2) (test No detect able code = 28592-0) levels of SARS-CoV-2 Coronavirus (COVID-19) were present [...] its performance characteristics were verified by the [facility] molecular diagnostics laboratory and is authorized for clinical diagnostic use. This laboratory is certified under the Clinical Laboratory Improvement Amendments (CLIA) as qualified to perform high complexity clinical laboratory testing. Lab Interpretation Normal (test code = 58203-8) [facility] HospitalIaprkhUHPB-KbN-7 RNA Resp Ql PORTIA+[id number] 13:03:17 Test Item Value Reference Range Interpretation Comments Hospitalized? (test No code = 47151-9) ICU? (test code = No 25599-0) Symptomatic as defined No by CDC? (test code = 91498-4) Employed in No Healthcare? (test code = 41762-7) Resident in a Yes congregate care setting (including nursing homes, residential care for people with intellectual and developmental disabilities, psychiatric treatment facilities, group homes, board and care homes, homeless group home, foster care or other): (test code = 15254-5) SARS-CoV-2 RNA Resp Ql NOT DETECTED Not Detected INTER PRETATION: No PORTIA+probe (test code = detec table levels 00423-7) of SARS-CoV-2 Coronavirus (COVID-19) were present in [...] its performance characteristics were verified by the [facility] molecular diagnostics laboratory and is authorized for clinical diagnostic use. This laboratory is certified under the Clinical Laboratory Improvement Amendments (CLIA) as qualified to perform high complexity clinical laboratory testing.[facility] POC docked [id number] 11:49:51 Test Item Value Reference Range Interpretation Comments Sodium POC (test code = 140 mmol/L 136-145 47039444) Potassium POC (test code 4.0 mmol/L 3.5-5.1 = 67813880) Chloride POC (test code 104 mmol/L 98-107 = 81809066) TCO2 POC (test code = 28 mmol/L 21-32 Physic shea Notified 25248403) Urea Nitrogen POC (test 19 mg/dL 7-18 H code = 33233192) Glucose POC (test code = 79 mg/dL 74-106 92832954) Hemoglobin POC (test 13.9 g/dL 12-16 code = 70669070) Hematocrit POC (test 41.0 % 37.0-47.0 code = 36833465) Lab Interpretation (test Abnormal code = 52405-5) [facility] CREATININE POC docked [id number] 11:49:51 Test Item Value Reference Range Interpretation Comments Creatinine POC (test 1.0 mg/dL 0.6-1.3 Physici an Notified code = 11828186) eGFR If non- Am 98 See_Comment [Aut omated message] (test code = 66034971) The s ystem which generated this result transmit abdelrahman reference range : >=90 mL/min/1.7 3 m2. The reference r annemarie was not used to interpret this result as normal/abnormal . eGFR If Am (test 114 See_Comment [A utomated message] code = 67420628) The system which generated this result transmit abdelrahman reference range : >=90 mL/min/1.7 3 m2. The reference r annemarie was not used to interpret this result as normal/abnormal . Lab Interpretation (test Normal code = 69689-9) [facility] BMP POC docked [id number] 11:49:51 Test Item Value Reference Range Interpretation Comments Sodium POC (test code = 140 mmol/L 136-145 33604894) Potassium POC (test code 4.0 mmol/L 3.5-5.1 = 78215699) Chloride POC (test code 104 mmol/L 98-107 = 52509114) TCO2 POC (test code = 28 mmol/L 21-32 Physic shea Notified 31536433) Urea Nitrogen POC (test 19 mg/dL 7-18 H code = 39697745) Glucose POC (test code = 79 mg/dL 74-106 51946534) Hemoglobin POC (test 13.9 g/dL 12-16 code = 12651338) Hematocrit POC (test 41.0 % 37.0-47.0 code = 39587281) Lab Interpretation (test Abnormal code = 00528-1) [facility] CREATININE POC docked [id number] 11:49:51 Test Item Value Reference Range Interpretation Comments Creatinine POC (test 1.0 mg/dL 0.6-1.3 Physici an Notified code = 10090688) eGFR If non- Am 98 See_Comment [Aut omated message] (test code = 86947433) The s ystem which generated this result transmit abdelrahman reference range : >=90 mL/min/1.7 3 m2. The reference r annemarie was not used to interpret this result as normal/abnormal . eGFR If Am (test 114 See_Comment [A utomated message] code = 33043493) The system which generated this result transmit abdelrahman reference range : >=90 mL/min/1.7 3 m2. The reference r annemarie was not used to interpret this result as normal/abnormal . Lab Interpretation (test Normal code = 91420-3) [facility] BMP POC docked [id number] 11:49:51 Test Item Value Reference Range Interpretation Comments Sodium POC (test code = 140 mmol/L 136-145 18962052) Potassium POC (test code 4.0 mmol/L 3.5-5.1 = 37992426) Chloride POC (test code 104 mmol/L 98-107 = 17210433) TCO2 POC (test code = 28 mmol/L 21-32 Physic shea Notified 26383077) Urea Nitrogen POC (test 19 mg/dL 7-18 H code = 04322058) Glucose POC (test code = 79 mg/dL 74-106 59102996) Hemoglobin POC (test 13.9 g/dL 12-16 code = 80596204) Hematocrit POC (test 41.0 % 37.0-47.0 code = 65099260) Lab Interpretation (test Abnormal code = 26379-4) [facility] CREATININE POC docked [id number] 11:49:51 Test Item Value Reference Range Interpretation Comments Creatinine POC (test 1.0 mg/dL 0.6-1.3 Physici an Notified code = 23832541) eGFR (test code = 98 See_Comment [Automate d message] 99867708) The system [employer] generated this result transmit abdelrahman reference range : >=90 mL/min/1.7 3 m2. The reference r annemarie was not used to interpret this result as normal/abnormal . eGFR If Am (test 114 See_Comment [A utomated message] code = 73507440) The system which generated this result transmit abdelrahman reference range : >=90 mL/min/1.7 3 m2. The reference r annemarie was not used to interpret this result as normal/abnormal . Lab Interpretation (test Normal code = 38536-5) [facility] BMP POC docked [id number] 11:49:51 Test Item Value Reference Range Interpretation Comments Sodium POC (test code = 140 mmol/L 136-145 94901988) Potassium POC (test code 4.0 mmol/L 3.5-5.1 = 99291501) Chloride POC (test code 104 mmol/L 98-107 = 03444283) TCO2 POC (test code = 28 mmol/L 21-32 Physic shea Notified 94144741) Urea Nitrogen POC (test 19 mg/dL 7-18 H code = 93275296) Glucose POC (test code = 79 mg/dL 74-106 16108297) Hemoglobin POC (test 13.9 g/dL 12-16 code = 77040919) Hematocrit POC (test 41.0 % 37.0-47.0 code = 31998589) Lab Interpretation (test Abnormal code = 84073-8) [facility] CREATININE POC docked [id number] 11:49:51 Test Item Value Reference Range Interpretation Comments Creatinine POC (test 1.0 mg/dL 0.6-1.3 Physici an Notified code = 90956825) eGFR (test code = 98 See_Comment [Automate d message] 62553544) The system [employer] generated this result transmit abdelrahman reference range : >=90 mL/min/1.7 3 m2. The reference r annemarie was not used to interpret this result as normal/abnormal . eGFR If Am (test 114 See_Comment [A utomated message] code = 91428833) The system which generated this result transmit abdelrahman reference range : >=90 mL/min/1.7 3 m2. The reference r annemarie was not used to interpret this result as normal/abnormal . Lab Interpretation (test Normal code = 64494-3) [facility] [id number] 06:41:00 Test Item Value Reference Range Interpretation Comments Urine culture (test SEE COMMENT Bacteriu pilo screen code = 4161039) negative. [facility] wxftfud3260-50-11 06:41:00 Test Item Value Reference Range Interpretation Comments Urine culture (test SEE COMMENT Bacteriu pilo screen code = 1577322) negative. [facility] [place]2022-09-15 06:41:00 Test Item Value Reference Range Interpretation Comments Urine culture (test SEE COMMENT Bacteriu pilo screen code = 8066977) negative. [facility] [place]2022-09-15 06:41:00 Test Item Value Reference Range Interpretation Comments Urine culture (test SEE COMMENT Bacteriu pilo screen code = 4527333) negative. [facility]2022-09-15 06:41:00 Test Item Value Reference Range Interpretation Comments Urine culture (test SEE COMMENT Bacteriu pilo screen code = 8330309) negative. [facility] [place]2022-09-15 06:41:00 Test Item Value Reference Range Interpretation Comments Urine culture (test SEE COMMENT Bacteriu pilo screen code = 4375643) negative. [facility] [place]2022-09-15 06:41:00 Test Item Value Reference Range Interpretation Comments Urine culture (test SEE COMMENT Bacteriu pilo screen code = 8767469) negative. [facility]2022-09-15 06:41:00 Test Item Value Reference Range Interpretation Comments Urine culture (test SEE COMMENT Bacteriu pilo screen code = 9415800) negative. [facility]2022-09-15 06:41:00 Test Item Value Reference Range Interpretation Comments Urine culture (test SEE COMMENT Bacteriu pilo screen code = 7579607) negative. [facility] Preliminary Interpretation - Not an [id number] 02:35:02 Test Item Value Reference Range Interpretation Comments LISA (test code = LISA) Dio Boswell DO 01/16/2022 11:06 [facility] [place] Preliminary Interpretation - Not an OrderPerformed by: Dio Boswell DOAuthorized by: Dio Boswell DO ECG reviewed by ED Physician in the absence of a ed special education teacher: yes Previous ECG: Previous ECG: UnavailableInterpretat ion: Interpretation: abnormal Rate: ECG rate: 60 ECG rate assessment: normal Rhythm: Rhythm: sinus rhythm Ectopy: Ectopy: none QRS: QRS axis: Normal QRS intervals: NormalConduction: Conduction: abnormal Abnormal conduction: incomplete RBBB ST segments: ST segments: NormalT waves: T waves: normal Lab Interpretation Abnormal (test code = 44252-1) [facility] Preliminary Interpretation - Not an [id number] 02:35:02 Test Item Value Reference Range Interpretation Comments LISA (test code = LISA) Dio Boswell DO 01/16/2022 11:06 [facility] Preliminary Interpretation - Not an OrderPerformed by: Dio Boswell DOAuthorized by: Dio Boswell DO ECG reviewed by ED Physician in the absence of a ed special education teacher: yes Previous ECG: Previous ECG: UnavailableInterpretat ion: Interpretation: abnormal Rate: ECG rate: 60 ECG rate assessment: normal Rhythm: Rhythm: sinus rhythm Ectopy: Ectopy: none QRS: QRS axis: Normal QRS intervals: NormalConduction: Conduction: abnormal Abnormal conduction: incomplete RBBB ST segments: ST segments: NormalT waves: T waves: normal Lab Interpretation Abnormal (test code = 16904-7) [facility] Preliminary Interpretation - Not an [id number] 02:35:02 Test Item Value Reference Range Interpretation Comments LISA (test code = LISA) Dio Boswell DO 01/16/2022 11:06 [facility] Preliminary Interpretation - Not an OrderPerformed by: Dio Boswell DOAuthorized by: Dio Boswell DO ECG reviewed by ED Physician in the absence of a ed special education teacher: yes Previous ECG: Previous ECG: UnavailableInterpretat ion: Interpretation: abnormal Rate: ECG rate: 60 ECG rate assessment: normal Rhythm: Rhythm: sinus rhythm Ectopy: Ectopy: none QRS: QRS axis: Normal QRS intervals: NormalConduction: Conduction: abnormal Abnormal conduction: incomplete RBBB ST segments: ST segments: NormalT waves: T waves: normal Lab Interpretation Abnormal (test code = 47677-8) [facility] Preliminary Interpretation - Not an [id number] 02:35:02 Test Item Value Reference Range Interpretation Comments LISA (test code = LISA) Dio Boswell DO 01/16/2022 11:06 [facility] [facility] Preliminary Interpretation - Not an OrderPerformed by: Dio Boswell DOAuthorized by: Dio Boswell DO ECG reviewed by ED Physician in the absence of a ed special education teacher: yes Previous ECG: Previous ECG: UnavailableInterpretat ion: Interpretation: abnormal Rate: ECG rate: 60 ECG rate assessment: normal Rhythm: Rhythm: sinus rhythm Ectopy: Ectopy: none QRS: QRS axis: Normal QRS intervals: NormalConduction: Conduction: abnormal Abnormal conduction: incomplete RBBB ST segments: ST segments: NormalT waves: T waves: normal Lab Interpretation Abnormal (test code = 07138-0) [facility] Preliminary Interpretation - Not an [id number] 02:35:02 Test Item Value Reference Range Interpretation Comments LISA (test code = LISA) Dio Boswlel DO 01/16/2022 11:06 [facility] Preliminary Interpretation - Not an OrderPerformed by: Dio Boswell, DOAuthorized by: Dio Boswell DO ECG reviewed by ED Physician in the absence of a ed special education teacher: yes Previous ECG: Previous ECG: UnavailableInterpretat ion: Interpretation: abnormal Rate: ECG rate: 60 ECG rate assessment: normal Rhythm: Rhythm: sinus rhythm Ectopy: Ectopy: none QRS: QRS axis: Normal QRS intervals: NormalConduction: Conduction: abnormal Abnormal conduction: incomplete RBBB ST segments: ST segments: NormalT waves: T waves: normal Lab Interpretation Abnormal (test code = 46400-5) [facility] Preliminary Interpretation - Not an [id number] 02:35:02 Test Item Value Reference Range Interpretation Comments LISA (test code = LISA) Dio Boswell DO 01/16/2022 11:06 [facility] Preliminary Interpretation - Not an OrderPerformed by: Dio Boswell, DOAuthorized by: Dio Boswell DO ECG reviewed by ED Physician in the absence of a ed special education teacher: yes Previous ECG: Previous ECG: UnavailableInterpretat ion: Interpretation: abnormal Rate: ECG rate: 60 ECG rate assessment: normal Rhythm: Rhythm: sinus rhythm Ectopy: Ectopy: none QRS: QRS axis: Normal QRS intervals: NormalConduction: Conduction: abnormal Abnormal conduction: incomplete RBBB ST segments: ST segments: NormalT waves: T waves: normal Lab Interpretation Abnormal (test code = 13686-7) [facility] Preliminary Interpretation - Not an [id number] 02:35:02 Test Item Value Reference Range Interpretation Comments LISA (test code = LISA) Dio Boswell DO 01/16/2022 11:06 [facility] Preliminary Interpretation - Not an OrderPerformed by: Dio Boswell, DOAuthorized by: Dio Boswell DO ECG reviewed by ED Physician in the absence of a ed special education teacher: yes Previous ECG: Previous ECG: UnavailableInterpretat ion: Interpretation: abnormal Rate: ECG rate: 60 ECG rate assessment: normal Rhythm: Rhythm: sinus rhythm Ectopy: Ectopy: none QRS: QRS axis: Normal QRS intervals: NormalConduction: Conduction: abnormal Abnormal conduction: incomplete RBBB ST segments: ST segments: NormalT waves: T waves: normal Lab Interpretation Abnormal (test code = 88695-8) [facility] Preliminary Interpretation - Not an [id number] 02:35:02 Test Item Value Reference Range Interpretation Comments LISA (test code = LISA) Dio Boswell DO 01/16/2022 11:06 [facility] Preliminary Interpretation - Not an OrderPerformed by: Dio Boswell DOAuthorized by: Dio Boswell DO ECG reviewed by ED Physician in the absence of a ed special education teacher: yes Previous ECG: Previous ECG: UnavailableInterpretat ion: Interpretation: abnormal Rate: ECG rate: 60 ECG rate assessment: normal Rhythm: Rhythm: sinus rhythm Ectopy: Ectopy: none QRS: QRS axis: Normal QRS intervals: NormalConduction: Conduction: abnormal Abnormal conduction: incomplete RBBB ST segments: ST segments: NormalT waves: T waves: normal Lab Interpretation Abnormal (test code = 67658-1) [facility] Preliminary Interpretation - Not an [id number] 02:35:02 Test Item Value Reference Range Interpretation Comments LISA (test code = LISA) Dio Boswell DO 01/16/2022 11:06 [facility] Preliminary Interpretation - Not an OrderPerformed by: Dio Boswell DOAuthorized by: Dio Boswell DO ECG reviewed by ED Physician in the absence of a ed special education teacher: yes Previous ECG: Previous ECG: UnavailableInterpretat ion: Interpretation: abnormal Rate: ECG rate: 60 ECG rate assessment: normal Rhythm: Rhythm: sinus rhythm Ectopy: Ectopy: none QRS: QRS axis: Normal QRS intervals: NormalConduction: Conduction: abnormal Abnormal conduction: incomplete RBBB ST segments: ST segments: NormalT waves: T waves: normal Lab Interpretation Abnormal (test code = 52821-6) [facility] XeovesdhKYXP-FiL-7 (COVID-19) RNA [Presence] in Respiratory specimen by PORTIA with probe iquemymwr8743-27-91 00:36:01 Test Item Value Reference Range Interpretation Comments SARS-CoV-2 (COVID-19) RNA [Presence] Detected in Respiratory specimen by PORTIA with probe detection (test code = 56484-8) Whether patient is employed in a Unknown healthcare setting (test code = 89647-6) Whether the patient has symptoms Unknown related to condition of interest (test code = 54086-9) Whether the patient was hospitalized Unknown for condition of interest (test code = 67899-8) Whether the patient was admitted to Unknown intensive care unit (ICU) for condition of interest (test code = 63457-7) Whether patient resides in a Unknown congregate care setting (test code = 87180-1) status (test code = Unknown 77766-0) Date and time of symptom onset (test Unknown code = 46502-5) [facility]12 Lead [id number] 11:30:2212 LEAD EKG FOR [facility] Test Date: 4228-53-67Fha Name: SABAS MADERA Department: 5520Patient ID: [id number] Room: Gender: M Turkey Roll Maker: [id number]: 1990 Requested By: INOCENCIA LOZANO Order Number: [id number] Joyce MD: Ayush Saunders MeasurementsIntervals [place] Rate: 72 P: 67PR: 141 QRS: 70QRSD: 110 T: 29QT: 397 QTc: 422 Interpretive StatementsSINUS RHYTHMINCOMPLETE RIGHT BUNDLE BRANCH BLOCK [90+ ms QRS DURATION, TERMINAL R INV1/V2,40+ ms S IN I/aVL/V4/V5/V6]POSSIBLE LATERAL MYOCARDIAL INFARCTION , PROBABLY OLD [30 ms Q WAVE INI/aVL/V5/V6]Electronically Signed On 01-14-2022 12:12:05 CDT by Ayush SaundersNorth [facility] HospitalTriQ Systems Zwhzih43 Lead [id number] 11:30:2212 LEAD EKG FOR [facility] Test Date: 2999-94-15Noz Name: [facility] Department: 5520Patient ID: [id number] Room: Gender: M Turkey Roll Maker: [id number]: 1990 Requested By: INOCENCIA LOZANO Order Number: [id number] Reading MD: Ayush Saunders MeasurementsIntervals [place] Rate: 72 P: 67PR: 141 QRS: 70QRSD: 110 T: 29QT: 397 QTc: 422 Interpretive StatementsSINUS RHYTHMINCOMPLETE RIGHT BUNDLE BRANCH BLOCK [90+ ms QRS DURATION, TERMINAL R INV1/V2,40+ ms S IN I/aVL/V4/V5/V6]POSSIBLE LATERAL MYOCARDIAL INFARCTION , PROBABLY OLD [30 ms Q WAVE INI/aVL/V5/V6]Electronically Signed On 01-14-2022 12:12:05 CDT by Ayush SaundersNorth [facility] HospitalTactile12 Lead [id number] 11:30:2212 LEAD EKG FOR [facility] Test Date: 8748-86-06Grq Name: [facility] Department: 5520Patient ID: [id number] Room: Gender: M Turkey Roll Maker: [id number]: 1990 Requested By: INOCENCIA LOZANO Order Number: [id number] Reading MD: Ayush Saunders MeasurementsIntervals [place] Rate: 72 P: 67PR: 141 QRS: 70QRSD: 110 T: 29QT: 397 QTc: 422 Interpretive StatementsSINUS RHYTHMINCOMPLETE RIGHT BUNDLE BRANCH BLOCK [90+ ms QRS DURATION, TERMINAL R INV1/V2,40+ ms S IN I/aVL/V4/V5/V6]POSSIBLE LATERAL MYOCARDIAL INFARCTION , PROBABLY OLD [30 ms Q WAVE INI/aVL/V5/V6]Electronically SignedOn 01-14-2022 12:12:05 CDT by Ayush SaundersNorth [facility] HospitalTriQ Systems Jxufos60 Lead [id number] 11:30:2212 LEAD EKG FOR [facility] Test Date: 4247-16-60Dsb Name: SABAS MADERA Department: 5520Patient ID: [id number] Room: Gender: M Turkey Roll Maker: [id number]: 1990 Requested By: INOCENCIA LOZANO Order Number: [id number] Reading MD: Ayush Saunders MeasurementsIntervals [place] Rate: 72 P: 67PR: 141 QRS: 70QRSD: 110 T: 29QT: 397 QTc: 422 Interpretive StatementsSINUS RHYTHMINCOMPLETE RIGHT BUNDLE BRANCH BLOCK [90+ ms QRS DURATION, TERMINAL R INV1/V2,40+ ms S IN I/aVL/V4/V5/V6]POSSIBLE LATERAL MYOCARDIAL INFARCTION , PROBABLY OLD [30 ms Q WAVE INI/aVL/V5/V6]Electronically Signed On 01-14-2022 12:12:05 CDT by Ayush SaundersNorth [facility] HospitalTactile12 Lead [id number] 11:30:2212 LEAD EKG FOR [facility] Test Date: 2909-12-66Dxw Name: SABAS MADERA Department: 5520Patient ID: [id number] Room: Gender: M Turkey Roll Maker: [id number]: 1990 Requested By: INOCENCIA LOZANO Order Number: [id number] Reading MD: Ayush Saunders MeasurementsIntervals [place] Rate:72 P: 67PR: 141 QRS: 70QRSD: 110 T: 29QT: 397 QTc: 422 Interpretive StatementsSINUS RHYTHMINCOMPLETE RIGHT BUNDLE BRANCH BLOCK [90+ ms QRS DURATION, TERMINAL R INV1/V2,40+ ms S IN I/aVL/V4/V5/V6]POSSIBLE LATERAL MYOCARDIAL INFARCTION , PROBABLY OLD [30 ms Q WAVE INI/aVL/V5/V6]Electronically Signed On01-14-2022 12:12:05 CDT by Ayush HaydenCoalinga Regional Medical CenterTactile12 Lead [id number] 11:30:2212 LEAD EKG FOR [facility] Test Date: 7617-03-40Pox Name: SABAS MADERA [facility] ent: [id number] ID: [id number] Room: Gender: M Turkey Roll Maker: [id number]: [id number] Requested By: INOCENCIA LOZANO Order Number: [id number] Reading MD: Ayush Saunders MeasurementsIntervals [place] Rate: 72 P: 67PR: 141 QRS: 70QRSD: 110 T: 29QT: 397 QTc: 422 Interpretive StatementsSINUS RHYTHMINCOMPLETE RIGHT BUNDLE BRANCH BLOCK [90+ ms QRS DURATION, TERMINAL R INV1/V2,40+ ms S IN I/aVL/V4/V5/V6]POSSIBLE LATERAL MYOCARDIAL INFARCTION , PROBABLY OLD [30 ms Q WAVE INI/aVL/V5/V6]Electronically Signed On 01-14-2022 12:12:05 CDT by Ayush SaundersHolzer HospitalCoronavirus PCR, COVID19 [id number] 00:45:00 Test Item Value Reference Range Interpretation Comments Coronavirus PCR, For use under Emergency COVID19 Rapid (test Use Authorization (EUA) code = SARSCOV2) only. Coronavirus PCR, Reference Range: COVID19 Rapid (test Negative code = QIWNZCF18.1) SARS-CoV-2 PCR Result: Positive by RT-PCR A [...] = NRBCP) 0 % UA, Urinalysis Rflx Cult/[id number] 00:45:00 Test Item Value Reference Range Interpretation Comments Color,Urine (test code = UCOL) Dark Yellow Yellow A Clarity,Urine (test code = Clear Clear UCLAR) Ph, Urine (test code = UPH) 5.0 5.0-9.0 N Specific [place],Urine (test >= 1.030 1.005-1.030 N code = [...] Negative mg/dL Negative code = ULEU) Urine [id number] 00:45:00 Test Item Value Reference Range Interpretation Comments RBC,Urine (test code = URBCUF) None Seen /HPF 0-2 WBC,Urine (test code = UWBCUF) 0-5 /HPF 0-5 Epithelial Cell,Urine (test None Seen /HPF 0-5 code = UECUF) Casts,Urine (test code = 0-5 /LPF None Seen UCASTUF) Bacteria,Urine (test code = None Seen /hpf None Seen UBACTUF) Manual Differential, [id number] 00:45:00 Test Item Value Reference Range Interpretation [...] code = Normal Morphology Normal RM) Drug Screen,[id number] 00:45:00 Test Item Value Reference Range Interpretation [...] Urine (test code = UPROP) Comprehensive Metabolic [id number] 00:45:00 Test Item Value Reference Range Interpretation [...] 44 U/L 46-116 L = ALP) Ethanol [id number] 00:45:00 Test Item Value Reference Range Interpretation Comments Ethanol (test code < 3 mg/dL The pharm acological = ETOH) response to blo od alcohol levels mayvary from individual to i ndividual. The fatal xiomara ntrationhas been reported t o be >400mg/dL. CHEM [id number] 04:57:00 Test Item Value Reference Range Interpretation Comments Glucose Lvl (test code = Glucose Lvl) 141 70-99 [facility] ViveveCHEM [id number] 04:57:00 Test Item Value Reference Range Interpretation Comments BUN (test code = BUN) 7 7-22 [facility] [id number] 04:57:00 Test Item Value Reference Range Interpretation Comments Creatinine Lvl (test code = Creatinine 1.10 0.50-1.40 Lvl) [facility]CHEM [id number] 04:57:00 Test Item Value Reference Range Interpretation Comments Sodium Lvl (test code = Sodium Lvl) 138 135-145 [facility] [id number] 04:57:00 Test Item Value Reference Range Interpretation Comments Potassium Lvl (test code = Potassium 3.1 3.5-5.1 Lvl) [facility] [id number] 04:57:00 Test Item Value Reference Range Interpretation Comments Chloride Lvl (test code = Chloride Lvl) 106 95-109 [facility] [id number] 04:57:00 Test Item Value Reference Range Interpretation Comments CO2 (test code = CO2) 27 24-32 [facility] [id number] 04:57:00 Test Item Value Reference Range Interpretation Comments Calcium Lvl (test code = Calcium Lvl) 8.9 8.5-10.5 [facility] [id number] 04:57:00 Test Item Value Reference Range Interpretation Comments Albumin Lvl (test code = Albumin Lvl) 4.2 3.5-5.0 [facility] [id number] 04:57:00 Test Item Value Reference Range Interpretation Comments AGAP (test code = AGAP) 8.1 10.0-20.0 [facility] [id number] 04:57:00 Test Item Value Reference Range Interpretation Comments B/C Ratio (test code = B/C Ratio) 6 1 6-25 [facility] [id number] 04:57:00 Test Item Value Reference Range Interpretation Comments eGFR (test code = eGFR) 89 [facility] [id number] 04:57:00 Test Item Value Reference Range Interpretation Comments Total Protein (test code = Total 7.6 6.4-8.4 Protein) [facility] [id number] 04:57:00 Test Item Value Reference Range Interpretation Comments ALT (test code = ALT) 23 See_Comment [Auto mated message] The system which ge nerated this result transmit abdelrahman reference range : <=65. The reference range was not used to interpr et this result as gurpreet l/abnormal. [facility] [id number] 04:57:00 Test Item Value Reference Range Interpretation Comments AST (test code = AST) 16 See_Comment [Auto mated message] The system which ge nerated this result transmit abdelrahman reference range : <=37. The reference range was not used to interpr et this result as gurpreet l/abnormal. [facility] [id number] 04:57:00 Test Item Value Reference Range Interpretation Comments Alk Phos (test code = Alk Phos) 38 39-136 [facility] [id number] 04:57:00 Test Item Value Reference Range Interpretation Comments Bili Total (test code = Bili Total) 0.3 0.2-1.3 [facility] [id number] 04:57:00 Test Item Value Reference Range Interpretation Comments Globulin (test code = Globulin) 3.4 2.7-4.2 [facility] [id number] 04:57:00 Test Item Value Reference Range Interpretation Comments A/G Ratio (test code = A/G Ratio) 1.2 1 0.7-1.6 [facility]HpelawjZTSGBWHNJR8544-08-41 04:57:00 Test Item Value Reference Range Interpretation Comments WBC (test code = WBC) 9.2 3.7-10.4 [facility] CenterHdglwwqFXGKYDWAGK0236-57-81 04:57:00 Test Item Value Reference Range Interpretation Comments RBC (test code = RBC) 4.56 4.70-6.10 [facility]ByyosfmJWKANXHUMG4909-52-50 04:57:00 Test Item Value Reference Range Interpretation Comments Hgb (test code = Hgb) 13.3 14.0-18.0 [facility]bergKthmegoHORTYUQKUH6691-69-35 04:57:00 Test Item Value Reference Range Interpretation Comments Hct (test code = Hct) 39.7 42.0-54.0 [facility] HealthUmnivvuRLSBVYRAJV2794-93-33 04:57:00 Test Item Value Reference Range Interpretation Comments MCV (test code = MCV) 87.0 80.0-94.0 [facility] HealthNxnslgsYKJJOAESPM2458-59-76 04:57:00 Test Item Value Reference Range Interpretation Comments MCH (test code = MCH) 29.2 pg 27.0-31.0 [facility] HealthVjcvqqoIBZDKFONDM4559-16-49 04:57:00 Test Item Value Reference Range Interpretation Comments MCHC (test code = MCHC) 33.6 32.0-36.0 [facility] HealthIsohxvkFCKBOJZUZG5134-62-96 04:57:00 Test Item Value Reference Range Interpretation Comments RDW (test code = RDW) 13.1 11.5-14.5 [place] [id number] 04:57:00 Test Item Value Reference Range Interpretation Comments Platelet (test code = Platelet) 162 133-450 [facility] CenterHpfotwaNDMLCWAJFQ3489-28-34 04:57:00 Test Item Value Reference Range Interpretation Comments MPV (test code = MPV) 9.8 7.4-10.4 [facility] CenterEhoecqaTPQHTAFOSW5784-16-00 04:57:00 Test Item Value Reference Range Interpretation Comments Segs (test code = Segs) 79.0 45.0-75.0 [facility] CenterHgfmbxmUJUMDPWMIA0569-17-81 04:57:00 Test Item Value Reference Range Interpretation Comments Lymphocytes (test code = Lymphocytes) 13.7 20.0-40.0 [facility] CenterVnsadznSXDOTWGHFD6130-26-77 04:57:00 Test Item Value Reference Range Interpretation Comments Monocytes (test code = Monocytes) 6.5 2.0-12.0 [facility] CenterJxzqjfrTHWALGYWQY6917-80-12 04:57:00 Test Item Value Reference Range Interpretation Comments Eosinophils (test code = 0.5 See_Comment [A utomated message] The Eosinophils) system which ge nerated this result tra nsmitted reference range : <=4.0. The reference r annemarie was not used to int erpret this result as normal/abnormal . [facility] CenterOiorrjzWQASHKYWWD8034-66-89 04:57:00 Test Item Value Reference Range Interpretation Comments Basophils (test code = 0.3 See_Comment [Aut omated message] The Basophils) system which ge nerated this result tra nsmitted reference range : <=1.0. The reference r annemarie was not used to int erpret this result as normal/abnormal . [facility] CenterAwyptdrVXVKFEDCSE1923-82-65 04:57:00 Test Item Value Reference Range Interpretation Comments Neutrophils # (test code = Neutrophils 7.3 1.5-8.1 #) [facility] CenterQsglqczQXOFMVYJYN4077-79-86 04:57:00 Test Item Value Reference Range Interpretation Comments Lymphocytes # (test code = Lymphocytes 1.3 1.0-5.5 #) [facility] CenterRenizkrWJNGENYTCH5133-93-31 04:57:00 Test Item Value Reference Range Interpretation Comments Monocytes # (test code 0.6 See_Comment [Aut omated message] The = Monocytes #) system which generated this result tra nsmitted reference range : <=0.8. The reference r annemarie was not used to int erpret this result as normal/abnormal . [facility] CenterBuxtnskODISYREONZ3007-77-88 04:57:00 Test Item Value Reference Range Interpretation Comments Ethanol Lvl (test code = Ethanol Lvl) no gt [place] [id number] 04:57:00 Test Item Value Reference Range Interpretation Comments Etoh (%) (test code = Etoh (%)) no gt [place] [id number] 04:57:00 Test Item Value Reference Range Interpretation Comments Acetaminoph Lvl (test code (12/14/19 11:57 PM) 02-17 = Acetaminoph Lvl) [place] [id number] 04:57:00 Test Item Value Reference Range Interpretation Comments Salicylate Lvl (test 3.4 See_Comment [Autom ated message] The code = Salicylate Lvl) syste m which generated this result tra nsmitted reference range : <=30.0. The reference r annemarie was not used to int erpret this result as normal/abnormal . [facility] [id number] 04:57:00 Test Item Value Reference Range Interpretation Comments Glucose Lvl (test code = Glucose Lvl) 141 70-99 [facility] [id number] 04:57:00 Test Item Value Reference Range Interpretation Comments BUN (test code = BUN) 7 7-22 [facility] [id number] 04:57:00 Test Item Value Reference Range Interpretation Comments Creatinine Lvl (test code = Creatinine 1.10 0.50-1.40 Lvl) [facility] [id number] 04:57:00 Test Item Value Reference Range Interpretation Comments Sodium Lvl (test code = Sodium Lvl) 138 135-145 [facility] [id number] 04:57:00 Test Item Value Reference Range Interpretation Comments Potassium Lvl (test code = Potassium 3.1 3.5-5.1 Lvl) [facility] [id number] 04:57:00 Test Item Value Reference Range Interpretation Comments Chloride Lvl (test code = Chloride Lvl) 106 95-109 [facility] [id number] 04:57:00 Test Item Value Reference Range Interpretation Comments CO2 (test code = CO2) 27 24-32 [facility] [id number] 04:57:00 Test Item Value Reference Range Interpretation Comments Calcium Lvl (test code = Calcium Lvl) 8.9 8.5-10.5 [facility] [id number] 04:57:00 Test Item Value Reference Range Interpretation Comments Albumin Lvl (test code = Albumin Lvl) 4.2 3.5-5.0 [facility] [id number] 04:57:00 Test Item Value Reference Range Interpretation Comments AGAP (test code = AGAP) 8.1 10.0-20.0 [facility] [id number] 04:57:00 Test Item Value Reference Range Interpretation Comments B/C Ratio (test code = B/C Ratio) 6 1 6-25 [facility] [id number] 04:57:00 Test Item Value Reference Range Interpretation Comments eGFR (test code = eGFR) 89 [facility] [id number] 04:57:00 Test Item Value Reference Range Interpretation Comments Total Protein (test code = Total 7.6 6.4-8.4 Protein) [facility] [id number] 04:57:00 Test Item Value Reference Range Interpretation Comments ALT (test code = ALT) 23 See_Comment [Auto mated message] The system which ge nerated this result transmit abdelrahman reference range : <=65. The reference range was not used to interpr et this result as gurpreet l/abnormal. [facility] [id number] 04:57:00 Test Item Value Reference Range Interpretation Comments AST (test code = AST) 16 See_Comment [Auto mated message] The system which ge nerated this result transmit abdelrahman reference range : <=37. The reference range was not used to interpr et this result as gurpreet l/abnormal. [facility] [id number] 04:57:00 Test Item Value Reference Range Interpretation Comments Alk Phos (test code = Alk Phos) 38 39-136 [facility] [id number] 04:57:00 Test Item Value Reference Range Interpretation Comments Bili Total (test code = Bili Total) 0.3 0.2-1.3 [facility] [id number] 04:57:00 Test Item Value Reference Range Interpretation Comments Globulin (test code = Globulin) 3.4 2.7-4.2 [facility]2020-08-16 04:57:00 Test Item Value Reference Range Interpretation Comments A/G Ratio (test code = A/G Ratio) 1.2 1 0.7-1.6 [facility]bergNadqlucOOVISWQSAH7444-64-14 04:57:00 Test Item Value Reference Range Interpretation Comments WBC (test code = WBC) 9.2 3.7-10.4 [facility] KlebergPipymnaMHLSLWJJRB2475-55-30 04:57:00 Test Item Value Reference Range Interpretation Comments RBC (test code = RBC) 4.56 4.70-6.10 [facility] HealthJmznrexHGVCIEASOS2014-62-97 04:57:00 Test Item Value Reference Range Interpretation Comments Hgb (test code = Hgb) 13.3 14.0-18.0 [facility] CenterAtswydeGCBNYDHQEA1209-53-10 04:57:00 Test Item Value Reference Range Interpretation Comments Hct (test code = Hct) 39.7 42.0-54.0 [facility] KlebergGfcqrenCMDENUWMIO3405-14-67 04:57:00 Test Item Value Reference Range Interpretation Comments MCV (test code = MCV) 87.0 80.0-94.0 [facility] KlebergKjzokeaDKRBRMPHMY3464-85-06 04:57:00 Test Item Value Reference Range Interpretation Comments MCH (test code = MCH) 29.2 pg 27.0-31.0 [facility] KlebergNjmgaibNVYVMJAHMZ9887-01-67 04:57:00 Test Item Value Reference Range Interpretation Comments MCHC (test code = MCHC) 33.6 32.0-36.0 [facility] KlebergClkmyqfWRPUZHRLTV1158-25-50 04:57:00 Test Item Value Reference Range Interpretation Comments RDW (test code = RDW) 13.1 11.5-14.5 [facility] HealthGvhmzxjGUYXPHBMVI5138-93-99 04:57:00 Test Item Value Reference Range Interpretation Comments Platelet (test code = Platelet) 162 133-450 [facility] KlebergUgsmvbeJMVLNJFWWH6228-00-70 04:57:00 Test Item Value Reference Range Interpretation Comments MPV (test code = MPV) 9.8 7.4-10.4 [facility] CenterAzemtcvPSOEYEMOJP6470-54-04 04:57:00 Test Item Value Reference Range Interpretation Comments Segs (test code = Segs) 79.0 45.0-75.0 [facility] CenterUafwseiYMOCZRVQBV3957-71-40 04:57:00 Test Item Value Reference Range Interpretation Comments Lymphocytes (test code = Lymphocytes) 13.7 20.0-40.0 [facility] CenterEisizroAHYZEBYETD9203-48-66 04:57:00 Test Item Value Reference Range Interpretation Comments Monocytes (test code = Monocytes) 6.5 2.0-12.0 [facility] CenterEhxssqhTKWCZHOQFA5105-06-66 04:57:00 Test Item Value Reference Range Interpretation Comments Eosinophils (test code = 0.5 See_Comment [A utomated message] The Eosinophils) system which ge nerated this result tra nsmitted reference range : <=4.0. The reference r annemarie was not used to int erpret this result as normal/abnormal . [facility] CenterXlivflxNHOPSXWSLI1955-14-15 04:57:00 Test Item Value Reference Range Interpretation Comments Basophils (test code = 0.3 See_Comment [Aut omated message] The Basophils) system which ge nerated this result tra nsmitted reference range : <=1.0. The reference r annemarie was not used to int erpret this result as normal/abnormal . [facility] CenterWpgpxbdACMSSXDWAC7371-87-63 04:57:00 Test Item Value Reference Range Interpretation Comments Neutrophils # (test code = Neutrophils 7.3 1.5-8.1 #) [facility] CenterZriaqqpYUAVUROWCU5346-54-54 04:57:00 Test Item Value Reference Range Interpretation Comments Lymphocytes # (test code = Lymphocytes 1.3 1.0-5.5 #) [facility] CenterHhgivdaXAVHKLKZQE2314-21-91 04:57:00 Test Item Value Reference Range Interpretation Comments Monocytes # (test code 0.6 See_Comment [Aut omated message] The = Monocytes #) system which generated this result tra nsmitted reference range : <=0.8. The reference r annemarie was not used to int erpret this result as normal/abnormal . [facility] KlebergAhzhwawRRVRTDTXDN3237-34-31 04:57:00 Test Item Value Reference Range Interpretation Comments Ethanol Lvl (test code = Ethanol Lvl) no gt [place] [id number] 04:57:00 Test Item Value Reference Range Interpretation Comments Etoh (%) (test code = Etoh (%)) no gt [facility] CenterGupymydXNSCCPHBNI3835-52-50 04:57:00 Test Item Value Reference Range Interpretation Comments Acetaminoph Lvl (test code (12/14/19 11:57 PM) 10-20 = Acetaminoph Lvl) [facility] CenterXpebqdqLJAXYIGLJA2988-67-50 04:57:00 Test Item Value Reference Range Interpretation Comments Salicylate Lvl (test 3.4 See_Comment [Autom ated message] The code = Salicylate Lvl) syste m which generated this result tra nsmitted reference range : <=30.0. The reference r annemarie was not used to int erpret this result as normal/abnormal . [facility] [id number] 04:57:00 Test Item Value Reference Range Interpretation Comments Glucose Lvl (test code = Glucose Lvl) 141 70-99 [facility] [id number] 04:57:00 Test Item Value Reference Range Interpretation Comments BUN (test code = BUN) 7 7-22 [facility] [id number] 04:57:00 Test Item Value Reference Range Interpretation Comments Creatinine Lvl (test code = Creatinine 1.10 0.50-1.40 Lvl) [facility] [id number] 04:57:00 Test Item Value Reference Range Interpretation Comments Sodium Lvl (test code = Sodium Lvl) 138 135-145 [facility] [id number] 04:57:00 Test Item Value Reference Range Interpretation Comments Potassium Lvl (test code = Potassium 3.1 3.5-5.1 Lvl) [facility] [id number] 04:57:00 Test Item Value Reference Range Interpretation Comments Chloride Lvl (test code = Chloride Lvl) 106 95-109 [facility] [id number] 04:57:00 Test Item Value Reference Range Interpretation Comments CO2 (test code = CO2) 27 24-32 [facility] [id number] 04:57:00 Test Item Value Reference Range Interpretation Comments Calcium Lvl (test code = Calcium Lvl) 8.9 8.5-10.5 [facility] [id number] 04:57:00 Test Item Value Reference Range Interpretation Comments Albumin Lvl (test code = Albumin Lvl) 4.2 3.5-5.0 [place] [address]-08-16 04:57:00 Test Item Value Reference Range Interpretation Comments AGAP (test code = AGAP) 8.1 10.0-20.0 [place] [address]-08-16 04:57:00 Test Item Value Reference Range Interpretation Comments B/C Ratio (test code = B/C Ratio) 6 1 6-25 [place] [address]-08-16 04:57:00 Test Item Value Reference Range Interpretation Comments eGFR (test code = eGFR) 89 [place] 294610-08-16 04:57:00 Test Item Value Reference Range Interpretation Comments Total Protein (test code = Total 7.6 6.4-8.4 Protein) [place] [address]-08-16 04:57:00 Test Item Value Reference Range Interpretation Comments ALT (test code = ALT) 23 See_Comment [Auto mated message] The system which ge nerated this result transmit abdelrahman reference range : <=65. The reference range was not used to interpr et this result as gurpreet l/abnormal. [facility] [id number] 04:57:00 Test Item Value Reference Range Interpretation Comments AST (test code = AST) 16 See_Comment [Auto mated message] The system which ge nerated this result transmit abdelrahman reference range : <=37. The reference range was not used to interpr et this result as gurpreet l/abnormal. [place] 294610-08-16 04:57:00 Test Item Value Reference Range Interpretation Comments Alk Phos (test code = Alk Phos) 38 39-136 [facility] [id number] 04:57:00 Test Item Value Reference Range Interpretation Comments Bili Total (test code = Bili Total) 0.3 0.2-1.3 [facility] NAQXM7067-06-37 04:57:00 Test Item Value Reference Range Interpretation Comments Globulin (test code = Globulin) 3.4 2.7-4.2 [facility] [id number] 04:57:00 Test Item Value Reference Range Interpretation Comments A/G Ratio (test code = A/G Ratio) 1.2 1 0.7-1.6 [facility] CenterNptjerdEFYTHHBHCO3762-84-88 04:57:00 Test Item Value Reference Range Interpretation Comments WBC (test code = WBC) 9.2 3.7-10.4 [facility] CenterGpjmedmHMWTVFESKU6429-85-44 04:57:00 Test Item Value Reference Range Interpretation Comments RBC (test code = RBC) 4.56 4.70-6.10 [facility] CenterOuwzdobUKDEETWDAG6047-69-40 04:57:00 Test Item Value Reference Range Interpretation Comments Hgb (test code = Hgb) 13.3 14.0-18.0 [facility] CenterOscuyctDLZBTDOVLW2342-99-24 04:57:00 Test Item Value Reference Range Interpretation Comments Hct (test code = Hct) 39.7 42.0-54.0 [facility] CenterAunebcoXXDHRANXFI1374-94-99 04:57:00 Test Item Value Reference Range Interpretation Comments MCV (test code = MCV) 87.0 80.0-94.0 [facility] CenterBvqvxcwCDUBROIAUF7603-88-62 04:57:00 Test Item Value Reference Range Interpretation Comments MCH (test code = MCH) 29.2 pg 27.0-31.0 [facility] CenterYuzewqwINBYPJLELS0200-86-92 04:57:00 Test Item Value Reference Range Interpretation Comments MCHC (test code = MCHC) 33.6 32.0-36.0 [facility] CenterKoddkqaLHBKYMYCKG0898-84-80 04:57:00 Test Item Value Reference Range Interpretation Comments RDW (test code = RDW) 13.1 11.5-14.5 [facility] CenterVjpxnriQDZAYXYBYU9492-60-55 04:57:00 Test Item Value Reference Range Interpretation Comments Platelet (test code = Platelet) 162 133-450 [facility] CenterKctvsvlLIATMDNVLZ8496-76-24 04:57:00 Test Item Value Reference Range Interpretation Comments MPV (test code = MPV) 9.8 7.4-10.4 [facility] CenterQczswwhGSFXIYPEBH8413-17-40 04:57:00 Test Item Value Reference Range Interpretation Comments Segs (test code = Segs) 79.0 45.0-75.0 [facility] CenterVueiykwNXIZDTKTSD4165-27-05 04:57:00 Test Item Value Reference Range Interpretation Comments Lymphocytes (test code = Lymphocytes) 13.7 20.0-40.0 [facility] CenterHsfnvpeABTXHORUSX8033-21-01 04:57:00 Test Item Value Reference Range Interpretation Comments Monocytes (test code = Monocytes) 6.5 2.0-12.0 [facility] CenterSbbfzmoPWYJKGYCCV3326-73-55 04:57:00 Test Item Value Reference Range Interpretation Comments Eosinophils (test code = 0.5 See_Comment [A utomated message] The Eosinophils) system which ge nerated this result tra nsmitted reference range : <=4.0. The reference r annemarie was not used to int erpret this result as normal/abnormal . [facility] CenterMpjdmrnRYPJYWEEAS8434-95-44 04:57:00 Test Item Value Reference Range Interpretation Comments Basophils (test code = 0.3 See_Comment [Aut omated message] The Basophils) system which ge nerated this result tra nsmitted reference range : <=1.0. The reference r annemaire was not used to int erpret this result as normal/abnormal . [facility] CenterIhuxoodKMPLESAFMM8396-15-48 04:57:00 Test Item Value Reference Range Interpretation Comments Neutrophils # (test code = Neutrophils 7.3 1.5-8.1 #) [facility] CenterKvfzlfhGSHZVYALBY4241-70-90 04:57:00 Test Item Value Reference Range Interpretation Comments Lymphocytes # (test code = Lymphocytes 1.3 1.0-5.5 #) [facility] CenterTwjynmzRQRHYTLNIG0438-10-54 04:57:00 Test Item Value Reference Range Interpretation Comments Monocytes # (test code 0.6 See_Comment [Aut omated message] The = Monocytes #) system which generated this result tra nsmitted reference range : <=0.8. The reference r annemarie was not used to int erpret this result as normal/abnormal . [facility]AbrvfrjCWSVVUZROQ1283-24-72 04:57:00 Test Item Value Reference Range Interpretation Comments Ethanol Lvl (test code = Ethanol Lvl) no gt [facility]bergBufbbajHJOMCJMYYG0809-11-95 04:57:00 Test Item Value Reference Range Interpretation Comments Etoh (%) (test code = Etoh (%)) no gt [facility] KlebergXopqjyyNVFMHYSGEN8275-55-92 04:57:00 Test Item Value Reference Range Interpretation Comments Acetaminoph Lvl (test code (12/14/19 11:57 PM) 10-20 = Acetaminoph Lvl) [place] [id number] 04:57:00 Test Item Value Reference Range Interpretation Comments Salicylate Lvl (test 3.4 See_Comment [Autom ated message] The code = Salicylate Lvl) syste m which generated this result tra nsmitted reference range : <=30.0. The reference r annemarie was not used to int erpret this result as normal/abnormal . [facility] [id number] 04:57:00 Test Item Value Reference Range Interpretation Comments Glucose Lvl (test code = Glucose Lvl) 141 70-99 [facility] [id number] 04:57:00 Test Item Value Reference Range Interpretation Comments BUN (test code = BUN) 7 7-22 [facility] [id number] 04:57:00 Test Item Value Reference Range Interpretation Comments Creatinine Lvl (test code = Creatinine 1.10 0.50-1.40 Lvl) [facility] [id number] 04:57:00 Test Item Value Reference Range Interpretation Comments Sodium Lvl (test code = Sodium Lvl) 138 135-145 [facility] [id number] 04:57:00 Test Item Value Reference Range Interpretation Comments Potassium Lvl (test code = Potassium 3.1 3.5-5.1 Lvl) [facility] [id number] 04:57:00 Test Item Value Reference Range Interpretation Comments Chloride Lvl (test code = Chloride Lvl) 106 95-109 [facility] [id number] 04:57:00 Test Item Value Reference Range Interpretation Comments CO2 (test code = CO2) 27 24-32 [facility] [id number] 04:57:00 Test Item Value Reference Range Interpretation Comments Calcium Lvl (test code = Calcium Lvl) 8.9 8.5-10.5 [facility] [id number] 04:57:00 Test Item Value Reference Range Interpretation Comments Albumin Lvl (test code = Albumin Lvl) 4.2 3.5-5.0 [facility] [id number] 04:57:00 Test Item Value Reference Range Interpretation Comments AGAP (test code = AGAP) 8.1 10.0-20.0 [facility] [id number] 04:57:00 Test Item Value Reference Range Interpretation Comments B/C Ratio (test code = B/C Ratio) 6 1 6-25 [facility] [id number] 04:57:00 Test Item Value Reference Range Interpretation Comments eGFR (test code = eGFR) 89 [facility] [id number] 04:57:00 Test Item Value Reference Range Interpretation Comments Total Protein (test code = Total 7.6 6.4-8.4 Protein) [facility] [id number] 04:57:00 Test Item Value Reference Range Interpretation Comments ALT (test code = ALT) 23 See_Comment [Auto mated message] The system which ge nerated this result transmit abdelrahman reference range : <=65. The reference range was not used to interpr et this result as gurpreet l/abnormal. [facility] [id number] 04:57:00 Test Item Value Reference Range Interpretation Comments AST (test code = AST) 16 See_Comment [Auto mated message] The system which ge nerated this result transmit abdelrahman reference range : <=37. The reference range was not used to interpr et this result as gurpreet l/abnormal. [facility] [id number] 04:57:00 Test Item Value Reference Range Interpretation Comments Alk Phos (test code = Alk Phos) 38 39-136 [facility] [id number] 04:57:00 Test Item Value Reference Range Interpretation Comments Bili Total (test code = Bili Total) 0.3 0.2-1.3 [facility] [id number] 04:57:00 Test Item Value Reference Range Interpretation Comments Globulin (test code = Globulin) 3.4 2.7-4.2 [facility] [id number] 04:57:00 Test Item Value Reference Range Interpretation Comments A/G Ratio (test code = A/G Ratio) 1.2 1 0.7-1.6 [facility] LancasterVutuoncBBTXULYLYB4810-14-40 04:57:00 Test Item Value Reference Range Interpretation Comments WBC (test code = WBC) 9.2 3.7-10.4 [facility] KlebergMzjuawzRQUADOJBVG6160-35-13 04:57:00 Test Item Value Reference Range Interpretation Comments RBC (test code = RBC) 4.56 4.70-6.10 [facility] LancasterLsyegieUMXCRHNPSQ7747-57-31 04:57:00 Test Item Value Reference Range Interpretation Comments Hgb (test code = Hgb) 13.3 14.0-18.0 [place] [address]-08-16 04:57:00 Test Item Value Reference Range Interpretation Comments Hct (test code = Hct) 39.7 42.0-54.0 [place] 878670-08-16 04:57:00 Test Item Value Reference Range Interpretation Comments MCV (test code = MCV) 87.0 80.0-94.0 [place] 878670-08-16 04:57:00 Test Item Value Reference Range Interpretation Comments MCH (test code = MCH) 29.2 pg 27.0-31.0 [place] 878670-08-16 04:57:00 Test Item Value Reference Range Interpretation Comments MCHC (test code = MCHC) 33.6 32.0-36.0 [facility] CenterLrtjmzsIEYCNOPFGD4620-64-74 04:57:00 Test Item Value Reference Range Interpretation Comments RDW (test code = RDW) 13.1 11.5-14.5 [place] 878670-08-16 04:57:00 Test Item Value Reference Range Interpretation Comments Platelet (test code = Platelet) 162 133-450 [facility] CenterSqdaxznLKGMQSHSOS3919-67-52 04:57:00 Test Item Value Reference Range Interpretation Comments MPV (test code = MPV) 9.8 7.4-10.4 [place] 878670-08-16 04:57:00 Test Item Value Reference Range Interpretation Comments Segs (test code = Segs) 79.0 45.0-75.0 [facility] CenterCmpfwfcGKNDGKVENT2599-26-28 04:57:00 Test Item Value Reference Range Interpretation Comments Lymphocytes (test code = Lymphocytes) 13.7 20.0-40.0 [place] [address]-08-16 04:57:00 Test Item Value Reference Range Interpretation Comments Monocytes (test code = Monocytes) 6.5 2.0-12.0 [place] [address]-08-16 04:57:00 Test Item Value Reference Range Interpretation Comments Eosinophils (test code = 0.5 See_Comment [A utomated message] The Eosinophils) system which ge nerated this result tra nsmitted reference range : <=4.0. The reference r annemarie was not used to int erpret this result as normal/abnormal . [place] 878670-08-16 04:57:00 Test Item Value Reference Range Interpretation Comments Basophils (test code = 0.3 See_Comment [Aut omated message] The Basophils) system which ge nerated this result tra nsmitted reference range : <=1.0. The reference r annemarie was not used to int erpret this result as normal/abnormal . [facility] KlebergSunrfwuPKGJIGFZBL8264-91-69 04:57:00 Test Item Value Reference Range Interpretation Comments Neutrophils # (test code = Neutrophils 7.3 1.5-8.1 #) [facility] KlebergBekwfvvTZXKOJKPMH6455-10-08 04:57:00 Test Item Value Reference Range Interpretation Comments Lymphocytes # (test code = Lymphocytes 1.3 1.0-5.5 #) [facility] KlebergBvhexbrCAFGOKOGWR7788-51-20 04:57:00 Test Item Value Reference Range Interpretation Comments Monocytes # (test code 0.6 See_Comment [Aut omated message] The = Monocytes #) system which generated this result tra nsmitted reference range : <=0.8. The reference r annemarie was not used to int erpret this result as normal/abnormal . [facility] KlebergRhqyvhjOQRQVPUSBG2194-75-42 04:57:00 Test Item Value Reference Range Interpretation Comments Ethanol Lvl (test code = Ethanol Lvl) no gt [facility] KlebergSgwmwqyYTRYWTXSWY3922-54-49 04:57:00 Test Item Value Reference Range Interpretation Comments Etoh (%) (test code = Etoh (%)) no gt [facility] KlebergOfnrmilHXQAFAFTYQ3180-16-94 04:57:00 Test Item Value Reference Range Interpretation Comments Acetaminoph Lvl (test code (12/14/19 11:57 PM) 10-20 = Acetaminoph Lvl) [facility] KlebergZyabiheASYCAOYZGL0940-63-79 04:57:00 Test Item Value Reference Range Interpretation Comments Salicylate Lvl (test 3.4 See_Comment [Autom ated message] The code = Salicylate Lvl) syste m which generated this result tra nsmitted reference range : <=30.0. The reference r annemarie was not used to int erpret this result as normal/abnormal . [facility]2020-08-16 04:57:00 Test Item Value Reference Range Interpretation Comments Glucose Lvl (test code = Glucose Lvl) 141 70-99 [facility]2020-08-16 04:57:00 Test Item Value Reference Range Interpretation Comments BUN (test code = BUN) 7 7-22 [place] 294610-08-16 04:57:00 Test Item Value Reference Range Interpretation Comments Creatinine Lvl (test code = Creatinine 1.10 0.50-1.40 Lvl) [facility]2020-08-16 04:57:00 Test Item Value Reference Range Interpretation Comments Sodium Lvl (test code = Sodium Lvl) 138 135-145 [facility] [id number] 04:57:00 Test Item Value Reference Range Interpretation Comments Potassium Lvl (test code = Potassium 3.1 3.5-5.1 Lvl) [facility] [id number] 04:57:00 Test Item Value Reference Range Interpretation Comments Chloride Lvl (test code = Chloride Lvl) 106 95-109 [facility] [id number] 04:57:00 Test Item Value Reference Range Interpretation Comments CO2 (test code = CO2) 27 24-32 [place] 294610-08-16 04:57:00 Test Item Value Reference Range Interpretation Comments Calcium Lvl (test code = Calcium Lvl) 8.9 8.5-10.5 [facility] [id number] 04:57:00 Test Item Value Reference Range Interpretation Comments Albumin Lvl (test code = Albumin Lvl) 4.2 3.5-5.0 [facility] [id number] 04:57:00 Test Item Value Reference Range Interpretation Comments AGAP (test code = AGAP) 8.1 10.0-20.0 [facility] [id number] 04:57:00 Test Item Value Reference Range Interpretation Comments B/C Ratio (test code = B/C Ratio) 6 1 6-25 [facility] LancasterData ImpactGLENN [place] [id number] 04:57:00 Test Item Value Reference Range Interpretation Comments eGFR (test code = eGFR) 89 [facility]2020-08-16 04:57:00 Test Item Value Reference Range Interpretation Comments Total Protein (test code = Total 7.6 6.4-8.4 Protein) [place] 294610-08-16 04:57:00 Test Item Value Reference Range Interpretation Comments ALT (test code = ALT) 23 See_Comment [Auto mated message] The system which ge nerated this result transmit abdelrahman reference range : <=65. The reference range was not used to interpr et this result as gurpreet l/abnormal. [facility] [id number] 04:57:00 Test Item Value Reference Range Interpretation Comments AST (test code = AST) 16 See_Comment [Auto mated message] The system which ge nerated this result transmit abdelrahman reference range : <=37. The reference range was not used to interpr et this result as gurpreet l/abnormal. [facility] [id number] 04:57:00 Test Item Value Reference Range Interpretation Comments Alk Phos (test code = Alk Phos) 38 39-136 [facility] [id number] 04:57:00 Test Item Value Reference Range Interpretation Comments Bili Total (test code = Bili Total) 0.3 0.2-1.3 [facility] [id number] 04:57:00 Test Item Value Reference Range Interpretation Comments Globulin (test code = Globulin) 3.4 2.7-4.2 [facility] [id number] 04:57:00 Test Item Value Reference Range Interpretation Comments A/G Ratio (test code = A/G Ratio) 1.2 1 0.7-1.6 [facility] YfggeayKSPOWXATLR0763-67-08 04:57:00 Test Item Value Reference Range Interpretation Comments WBC (test code = WBC) 9.2 3.7-10.4 [facility] OignkdgHGGTBJBQFK8259-92-73 04:57:00 Test Item Value Reference Range Interpretation Comments RBC (test code = RBC) 4.56 4.70-6.10 [facility] EyznyuzARKTJIDJPH3828-08-09 04:57:00 Test Item Value Reference Range Interpretation Comments Hgb (test code = Hgb) 13.3 14.0-18.0 [facility] HhrmatxVGWQREYTYW1315-28-81 04:57:00 Test Item Value Reference Range Interpretation Comments Hct (test code = Hct) 39.7 42.0-54.0 [facility] QjedlyrDUCMBXQFAL1462-59-31 04:57:00 Test Item Value Reference Range Interpretation Comments MCV (test code = MCV) 87.0 80.0-94.0 [facility] SnmbvxdPYLVVFQAPF9201-17-00 04:57:00 Test Item Value Reference Range Interpretation Comments MCH (test code = MCH) 29.2 pg 27.0-31.0 [facility] CenterRsffbstCZJTBIODXC1232-92-14 04:57:00 Test Item Value Reference Range Interpretation Comments MCHC (test code = MCHC) 33.6 32.0-36.0 [facility] CenterXabnjvaTUFOJLUBLB1783-44-56 04:57:00 Test Item Value Reference Range Interpretation Comments RDW (test code = RDW) 13.1 11.5-14.5 [facility] CenterWsehrleZPRJLCSCKM3894-49-74 04:57:00 Test Item Value Reference Range Interpretation Comments Platelet (test code = Platelet) 162 133-450 [facility] CenterFzjltftJCPVBYSFJT1756-41-76 04:57:00 Test Item Value Reference Range Interpretation Comments MPV (test code = MPV) 9.8 7.4-10.4 [facility] CenterFboeiswRBVFSISTED6309-44-54 04:57:00 Test Item Value Reference Range Interpretation Comments Segs (test code = Segs) 79.0 45.0-75.0 [facility] CenterCqonwyyJRLKWXEFIE9125-37-28 04:57:00 Test Item Value Reference Range Interpretation Comments Lymphocytes (test code = Lymphocytes) 13.7 20.0-40.0 [facility] CenterPktklmbXVFLRHVAYL9611-03-87 04:57:00 Test Item Value Reference Range Interpretation Comments Monocytes (test code = Monocytes) 6.5 2.0-12.0 [facility] CenterUrahtydMGQBOTJRZB3795-20-39 04:57:00 Test Item Value Reference Range Interpretation Comments Eosinophils (test code = 0.5 See_Comment [A utomated message] The Eosinophils) system which ge nerated this result tra nsmitted reference range : <=4.0. The reference r annemarie was not used to int erpret this result as normal/abnormal . [facility] CenterDusjvlsGKUWIVOKHR8128-01-14 04:57:00 Test Item Value Reference Range Interpretation Comments Basophils (test code = 0.3 See_Comment [Aut omated message] The Basophils) system which ge nerated this result tra nsmitted reference range : <=1.0. The reference r annemarie was not used to int erpret this result as normal/abnormal . [place] 878670-08-16 04:57:00 Test Item Value Reference Range Interpretation Comments Neutrophils # (test code = Neutrophils 7.3 1.5-8.1 #) [facility] LancasterJvcipcnYFMODAOSUU0683-87-98 04:57:00 Test Item Value Reference Range Interpretation Comments Lymphocytes # (test code = Lymphocytes 1.3 1.0-5.5 #) [facility] CenterVaskijdNXVDFWZXFT3039-15-21 04:57:00 Test Item Value Reference Range Interpretation Comments Monocytes # (test code 0.6 See_Comment [Aut omated message] The = Monocytes #) system which generated this result tra nsmitted reference range : <=0.8. The reference r annemarie was not used to int erpret this result as normal/abnormal . [facility] LancasterQdvpdweNYNRHOCZQD2042-20-76 04:57:00 Test Item Value Reference Range Interpretation Comments Ethanol Lvl (test code = Ethanol Lvl) no gt [facility] KlebergYlsqvkhBGXTREGRUO8733-26-03 04:57:00 Test Item Value Reference Range Interpretation Comments Etoh (%) (test code = Etoh (%)) no gt [facility] LancasterQhkpwsvRVMAMDJBOP1351-26-41 04:57:00 Test Item Value Reference Range Interpretation Comments Acetaminoph Lvl (test code (12/14/19 11:57 PM) 10-20 = Acetaminoph Lvl) [facility] KlebergKryeqrgWPTVSJEDBA7808-13-01 04:57:00 Test Item Value Reference Range Interpretation Comments Salicylate Lvl (test 3.4 See_Comment [Autom ated message] The code = Salicylate Lvl) syste m which generated this result tra nsmitted reference range : <=30.0. The reference r annemarie was not used to int erpret this result as normal/abnormal . [facility]2020-08-16 04:57:00 Test Item Value Reference Range Interpretation Comments Glucose Lvl (test code = Glucose Lvl) 141 70-99 [facility] [id number] 04:57:00 Test Item Value Reference Range Interpretation Comments BUN (test code = BUN) 7 7-22 [facility] [id number] 04:57:00 Test Item Value Reference Range Interpretation Comments Creatinine Lvl (test code = Creatinine 1.10 0.50-1.40 Lvl) [facility] LancasterR[facility] [id number] 04:57:00 Test Item Value Reference Range Interpretation Comments Sodium Lvl (test code = Sodium Lvl) 138 135-145 [facility] [id number] 04:57:00 Test Item Value Reference Range Interpretation Comments Potassium Lvl (test code = Potassium 3.1 3.5-5.1 Lvl) [facility] LancasterData ImpactON LICENSE OF [facility] MED[facility] CENTERBIPLA4574-68-30 04:57:00 Test Item Value Reference Range Interpretation Comments Chloride Lvl (test code = Chloride Lvl) 106 95-109 [facility] [id number] 04:57:00 Test Item Value Reference Range Interpretation Comments CO2 (test code = CO2) 27 24-32 [facility] [id number] 04:57:00 Test Item Value Reference Range Interpretation Comments Calcium Lvl (test code = Calcium Lvl) 8.9 8.5-10.5 [facility] [id number] 04:57:00 Test Item Value Reference Range Interpretation Comments Albumin Lvl (test code = Albumin Lvl) 4.2 3.5-5.0 [facility] ENROZ3528-20-75 04:57:00 Test Item Value Reference Range Interpretation Comments AGAP (test code = AGAP) 8.1 10.0-20.0 [facility] [id number] 04:57:00 Test Item Value Reference Range Interpretation Comments B/C Ratio (test code = B/C Ratio) 6 1 6-25 [facility] XEKRZ8521-01-14 04:57:00 Test Item Value Reference Range Interpretation Comments eGFR (test code = eGFR) 89 [facility] [id number] 04:57:00 Test Item Value Reference Range Interpretation Comments Total Protein (test code = Total 7.6 6.4-8.4 Protein) [facility] [id number] 04:57:00 Test Item Value Reference Range Interpretation Comments ALT (test code = ALT) 23 See_Comment [Auto mated message] The system which ge nerated this result transmit abdelrahman reference range : <=65. The reference range was not used to interpr et this result as gurpreet l/abnormal. [facility] Lancaster[facility] KDCFM2668-18-07 04:57:00 Test Item Value Reference Range Interpretation Comments AST (test code = AST) 16 See_Comment [Auto mated message] The system which ge nerated this result transmit abdelrahman reference range : <=37. The reference range was not used to interpr et this result as gurpreet l/abnormal. [facility] LancasterannValtech [facility] NGYRP1282-99-16 04:57:00 Test Item Value Reference Range Interpretation Comments Alk Phos (test code = Alk Phos) 38 39-136 [facility] LancasterannCHEM [id number] 04:57:00 Test Item Value Reference Range Interpretation Comments Bili Total (test code = Bili Total) 0.3 0.2-1.3 [facility] LancasterR[facility] [id number] 04:57:00 Test Item Value Reference Range Interpretation Comments Globulin (test code = Globulin) 3.4 2.7-4.2 [facility] LancasterR[facility] [id number] 04:57:00 Test Item Value Reference Range Interpretation Comments A/G Ratio (test code = A/G Ratio) 1.2 1 0.7-1.6 [facility] KlebergCrwjcibUCPEKDSEEN3395-22-37 04:57:00 Test Item Value Reference Range Interpretation Comments WBC (test code = WBC) 9.2 3.7-10.4 [facility] KlebergOecxbhtDPSZDPBUYJ9504-01-99 04:57:00 Test Item Value Reference Range Interpretation Comments RBC (test code = RBC) 4.56 4.70-6.10 [facility] KlebergCukiaivHBUQCZKQAG5119-37-36 04:57:00 Test Item Value Reference Range Interpretation Comments Hgb (test code = Hgb) 13.3 14.0-18.0 [facility] KlebergPyiccrmKAQXCSEMXR0505-08-48 04:57:00 Test Item Value Reference Range Interpretation Comments Hct (test code = Hct) 39.7 42.0-54.0 [facility] KlebergXkovuhmWISJVQMIGI0689-15-71 04:57:00 Test Item Value Reference Range Interpretation Comments MCV (test code = MCV) 87.0 80.0-94.0 [facility] LancasterJieitrbUPHZQUERPA7366-92-20 04:57:00 Test Item Value Reference Range Interpretation Comments MCH (test code = MCH) 29.2 pg 27.0-31.0 [facility] LancasterBtcxpihVXFWGKVVWQ6415-26-74 04:57:00 Test Item Value Reference Range Interpretation Comments MCHC (test code = MCHC) 33.6 32.0-36.0 [facility]GrcdiyxDMIDJCLPEI3503-88-29 04:57:00 Test Item Value Reference Range Interpretation Comments RDW (test code = RDW) 13.1 11.5-14.5 [place] 878670-08-16 04:57:00 Test Item Value Reference Range Interpretation Comments Platelet (test code = Platelet) 162 133-450 [place] 878670-08-16 04:57:00 Test Item Value Reference Range Interpretation Comments MPV (test code = MPV) 9.8 7.4-10.4 [place] 878670-08-16 04:57:00 Test Item Value Reference Range Interpretation Comments Segs (test code = Segs) 79.0 45.0-75.0 [place] 878670-08-16 04:57:00 Test Item Value Reference Range Interpretation Comments Lymphocytes (test code = Lymphocytes) 13.7 20.0-40.0 [place] 878670-08-16 04:57:00 Test Item Value Reference Range Interpretation Comments Monocytes (test code = Monocytes) 6.5 2.0-12.0 [facility] CenterTdqnunzIYZQVGZSAY5058-04-88 04:57:00 Test Item Value Reference Range Interpretation Comments Eosinophils (test code = 0.5 See_Comment [A utomated message] The Eosinophils) system which ge nerated this result tra nsmitted reference range : <=4.0. The reference r annemarie was not used to int erpret this result as normal/abnormal . [place] 878670-08-16 04:57:00 Test Item Value Reference Range Interpretation Comments Basophils (test code = 0.3 See_Comment [Aut omated message] The Basophils) system which ge nerated this result tra nsmitted reference range : <=1.0. The reference r annemarie was not used to int erpret this result as normal/abnormal . [place] 878670-08-16 04:57:00 Test Item Value Reference Range Interpretation Comments Neutrophils # (test code = Neutrophils 7.3 1.5-8.1 #) [facility] CenterFjksixsCNKMJMFVPX3021-11-45 04:57:00 Test Item Value Reference Range Interpretation Comments Lymphocytes # (test code = Lymphocytes 1.3 1.0-5.5 #) [place] 878670-08-16 04:57:00 Test Item Value Reference Range Interpretation Comments Monocytes # (test code 0.6 See_Comment [Aut omated message] The = Monocytes #) system which generated this result tra nsmitted reference range : <=0.8. The reference r annemarie was not used to int erpret this result as normal/abnormal . [facility]SghnfqsHNRWWWXMKX5693-99-34 04:57:00 Test Item Value Reference Range Interpretation Comments Ethanol Lvl (test code = Ethanol Lvl) no gt [place] [id number] 04:57:00 Test Item Value Reference Range Interpretation Comments Etoh (%) (test code = Etoh (%)) no gt [place] [id number] 04:57:00 Test Item Value Reference Range Interpretation Comments Acetaminoph Lvl (test code (12/14/19 11:57 PM) - = Acetaminoph Lvl) [id number] 04:57:00 Test Item Value Reference Range Interpretation Comments Salicylate Lvl (test 3.4 See_Comment [Autom ated message] The code = Salicylate Lvl) syste m which generated this result tra nsmitted reference range : <=30.0. The reference r annemarie was not used to int erpret this result as normal/abnormal . [facility] [id number] 04:57:00 Test Item Value Reference Range Interpretation Comments Glucose Lvl (test code = Glucose Lvl) 141 70-99 [facility] [id number] 04:57:00 Test Item Value Reference Range Interpretation Comments BUN (test code = BUN) 7 7-22 [facility] [id number] 04:57:00 Test Item Value Reference Range Interpretation Comments Creatinine Lvl (test code = Creatinine 1.10 0.50-1.40 Lvl) [facility] [id number] 04:57:00 Test Item Value Reference Range Interpretation Comments Sodium Lvl (test code = Sodium Lvl) 138 135-145 [facility] [id number] 04:57:00 Test Item Value Reference Range Interpretation Comments Potassium Lvl (test code = Potassium 3.1 3.5-5.1 Lvl) [facility] [id number] 04:57:00 Test Item Value Reference Range Interpretation Comments Chloride Lvl (test code = Chloride Lvl) 106 95-109 [facility] [id number] 04:57:00 Test Item Value Reference Range Interpretation Comments CO2 (test code = CO2) 27 24-32 [facility] [id number] 04:57:00 Test Item Value Reference Range Interpretation Comments Calcium Lvl (test code = Calcium Lvl) 8.9 8.5-10.5 [facility] [id number] 04:57:00 Test Item Value Reference Range Interpretation Comments Albumin Lvl (test code = Albumin Lvl) 4.2 3.5-5.0 [facility] [id number] 04:57:00 Test Item Value Reference Range Interpretation Comments AGAP (test code = AGAP) 8.1 10.0-20.0 [facility] [id number] 04:57:00 Test Item Value Reference Range Interpretation Comments B/C Ratio (test code = B/C Ratio) 6 1 6-25 [facility] [id number] 04:57:00 Test Item Value Reference Range Interpretation Comments eGFR (test code = eGFR) 89 [facility] [id number] 04:57:00 Test Item Value Reference Range Interpretation Comments Total Protein (test code = Total 7.6 6.4-8.4 Protein) [facility] [id number] 04:57:00 Test Item Value Reference Range Interpretation Comments ALT (test code = ALT) 23 See_Comment [Auto mated message] The system which ge nerated this result transmit abdelrahman reference range : <=65. The reference range was not used to interpr et this result as gurpreet l/abnormal. [facility] [id number] 04:57:00 Test Item Value Reference Range Interpretation Comments AST (test code = AST) 16 See_Comment [Auto mated message] The system which ge nerated this result transmit abdelrahman reference range : <=37. The reference range was not used to interpr et this result as gurpreet l/abnormal. [facility] [id number] 04:57:00 Test Item Value Reference Range Interpretation Comments Alk Phos (test code = Alk Phos) 38 39-136 [facility] [id number] 04:57:00 Test Item Value Reference Range Interpretation Comments Bili Total (test code = Bili Total) 0.3 0.2-1.3 [facility] [id number] 04:57:00 Test Item Value Reference Range Interpretation Comments Globulin (test code = Globulin) 3.4 2.7-4.2 [facility] [id number] 04:57:00 Test Item Value Reference Range Interpretation Comments A/G Ratio (test code = A/G Ratio) 1.2 1 0.7-1.6 [facility] KlebergNyzhdxuYCFYUMENXS3274-35-74 04:57:00 Test Item Value Reference Range Interpretation Comments WBC (test code = WBC) 9.2 3.7-10.4 [facility] KlebergLdtfrajJZKBYILLPH4026-76-46 04:57:00 Test Item Value Reference Range Interpretation Comments RBC (test code = RBC) 4.56 4.70-6.10 [facility] KlebergYsvqaapMBLYKRQCFY8008-61-13 04:57:00 Test Item Value Reference Range Interpretation Comments Hgb (test code = Hgb) 13.3 14.0-18.0 [facility] KlebergLwtqmyfMTZUTUYQSG4296-80-57 04:57:00 Test Item Value Reference Range Interpretation Comments Hct (test code = Hct) 39.7 42.0-54.0 [facility] KlebergAhdpoluKRMYZDBDJC6788-34-31 04:57:00 Test Item Value Reference Range Interpretation Comments MCV (test code = MCV) 87.0 80.0-94.0 [facility] KlebergAjkwrybIKIHNBYASO1300-80-97 04:57:00 Test Item Value Reference Range Interpretation Comments MCH (test code = MCH) 29.2 pg 27.0-31.0 [facility] KlebergBdpnujsCNJPKDUTUT4698-29-85 04:57:00 Test Item Value Reference Range Interpretation Comments MCHC (test code = MCHC) 33.6 32.0-36.0 [facility] KlebergLhzpwniHAGEEFJHUR5207-00-77 04:57:00 Test Item Value Reference Range Interpretation Comments RDW (test code = RDW) 13.1 11.5-14.5 [facility] KlebergUgkmutlFHHJZHIXHT7044-94-91 04:57:00 Test Item Value Reference Range Interpretation Comments Platelet (test code = Platelet) 162 133-450 [facility] HealthUafkajrYQAKLBNXDI3764-01-94 04:57:00 Test Item Value Reference Range Interpretation Comments MPV (test code = MPV) 9.8 7.4-10.4 [facility]FahwglhMDXERUHJKE1951-42-57 04:57:00 Test Item Value Reference Range Interpretation Comments Segs (test code = Segs) 79.0 45.0-75.0 [facility] CenterKjrkxooCWCWKIGAMX4747-07-30 04:57:00 Test Item Value Reference Range Interpretation Comments Lymphocytes (test code = Lymphocytes) 13.7 20.0-40.0 [facility] CenterRnatxvmZVZCCKXJVA2974-38-87 04:57:00 Test Item Value Reference Range Interpretation Comments Monocytes (test code = Monocytes) 6.5 2.0-12.0 [facility] CenterHpyfdysURSSCLVUHI6483-77-99 04:57:00 Test Item Value Reference Range Interpretation Comments Eosinophils (test code = 0.5 See_Comment [A utomated message] The Eosinophils) system which ge nerated this result tra nsmitted reference range : <=4.0. The reference r annemarie was not used to int erpret this result as normal/abnormal . [facility] CenterFbidgceFWDKDTXNDW3259-16-30 04:57:00 Test Item Value Reference Range Interpretation Comments Basophils (test code = 0.3 See_Comment [Aut omated message] The Basophils) system which ge nerated this result tra nsmitted reference range : <=1.0. The reference r annemarie was not used to int erpret this result as normal/abnormal . [facility] CenterBwzsgfzOXFQRBQCCH6924-38-32 04:57:00 Test Item Value Reference Range Interpretation Comments Neutrophils # (test code = Neutrophils 7.3 1.5-8.1 #) [facility] CenterDltwrotOFITVFUHAT0159-22-54 04:57:00 Test Item Value Reference Range Interpretation Comments Lymphocytes # (test code = Lymphocytes 1.3 1.0-5.5 #) [facility] CenterPyntlghZZATMIZRAY3656-08-87 04:57:00 Test Item Value Reference Range Interpretation Comments Monocytes # (test code 0.6 See_Comment [Aut omated message] The = Monocytes #) system which generated this result tra nsmitted reference range : <=0.8. The reference r annemarie was not used to int erpret this result as normal/abnormal . [facility] KlebergHvdtxgpCDUJMPIPGU1185-28-89 04:57:00 Test Item Value Reference Range Interpretation Comments Ethanol Lvl (test code = Ethanol Lvl) no gt [place] [id number] 04:57:00 Test Item Value Reference Range Interpretation Comments Etoh (%) (test code = Etoh (%)) no gt [place] [id number] 04:57:00 Test Item Value Reference Range Interpretation Comments Acetaminoph Lvl (test code (12/14/19 11:57 PM) 10-20 = Acetaminoph Lvl) [place] [id number] 04:57:00 Test Item Value Reference Range Interpretation Comments Salicylate Lvl (test 3.4 See_Comment [Autom ated message] The code = Salicylate Lvl) syste m which generated this result tra nsmitted reference range : <=30.0. The reference r annemarie was not used to int erpret this result as normal/abnormal . [facility] [id number] 04:57:00 Test Item Value Reference Range Interpretation Comments Glucose Lvl (test code = Glucose Lvl) 141 70-99 [facility] [id number] 04:57:00 Test Item Value Reference Range Interpretation Comments BUN (test code = BUN) 7 7-22 [facility] [id number] 04:57:00 Test Item Value Reference Range Interpretation Comments Creatinine Lvl (test code = Creatinine 1.10 0.50-1.40 Lvl) [facility] [id number] 04:57:00 Test Item Value Reference Range Interpretation Comments Sodium Lvl (test code = Sodium Lvl) 138 135-145 [facility] [id number] 04:57:00 Test Item Value Reference Range Interpretation Comments Potassium Lvl (test code = Potassium 3.1 3.5-5.1 Lvl) [facility] [id number] 04:57:00 Test Item Value Reference Range Interpretation Comments Chloride Lvl (test code = Chloride Lvl) 106 95-109 [facility] [id number] 04:57:00 Test Item Value Reference Range Interpretation Comments CO2 (test code = CO2) 27 24-32 [facility] [id number] 04:57:00 Test Item Value Reference Range Interpretation Comments Calcium Lvl (test code = Calcium Lvl) 8.9 8.5-10.5 [facility] [id number] 04:57:00 Test Item Value Reference Range Interpretation Comments Albumin Lvl (test code = Albumin Lvl) 4.2 3.5-5.0 [facility] [id number] 04:57:00 Test Item Value Reference Range Interpretation Comments AGAP (test code = AGAP) 8.1 10.0-20.0 [facility] [id number] 04:57:00 Test Item Value Reference Range Interpretation Comments B/C Ratio (test code = B/C Ratio) 6 1 6-25 [facility] [id number] 04:57:00 Test Item Value Reference Range Interpretation Comments eGFR (test code = eGFR) 89 [facility] [id number] 04:57:00 Test Item Value Reference Range Interpretation Comments Total Protein (test code = Total 7.6 6.4-8.4 Protein) [facility] [id number] 04:57:00 Test Item Value Reference Range Interpretation Comments ALT (test code = ALT) 23 See_Comment [Auto mated message] The system which ge nerated this result transmit abdelrahman reference range : <=65. The reference range was not used to interpr et this result as gurpreet l/abnormal. [facility] [id number] 04:57:00 Test Item Value Reference Range Interpretation Comments AST (test code = AST) 16 See_Comment [Auto mated message] The system which ge nerated this result transmit abdelrahman reference range : <=37. The reference range was not used to interpr et this result as gurpreet l/abnormal. [facility] [id number] 04:57:00 Test Item Value Reference Range Interpretation Comments Alk Phos (test code = Alk Phos) 38 39-136 [facility] [id number] 04:57:00 Test Item Value Reference Range Interpretation Comments Bili Total (test code = Bili Total) 0.3 0.2-1.3 [facility] [id number] 04:57:00 Test Item Value Reference Range Interpretation Comments Globulin (test code = Globulin) 3.4 2.7-4.2 [facility] [id number] 04:57:00 Test Item Value Reference Range Interpretation Comments A/G Ratio (test code = A/G Ratio) 1.2 1 0.7-1.6 [facility] CenterOisrympKNRTINRFSM8660-50-00 04:57:00 Test Item Value Reference Range Interpretation Comments WBC (test code = WBC) 9.2 3.7-10.4 [facility] CenterCxbgpfdPMLWVYDHNU4532-80-94 04:57:00 Test Item Value Reference Range Interpretation Comments RBC (test code = RBC) 4.56 4.70-6.10 [facility] CenterWvhnfgrGEFQHUHVWZ3153-71-48 04:57:00 Test Item Value Reference Range Interpretation Comments Hgb (test code = Hgb) 13.3 14.0-18.0 [facility] CenterWithqslPQABVSAXDS4737-14-68 04:57:00 Test Item Value Reference Range Interpretation Comments Hct (test code = Hct) 39.7 42.0-54.0 [facility] CenterIzivzmdTNPTYCSBGD8395-13-53 04:57:00 Test Item Value Reference Range Interpretation Comments MCV (test code = MCV) 87.0 80.0-94.0 [facility] CenterAddpdqvHNSHYIUINN9557-26-47 04:57:00 Test Item Value Reference Range Interpretation Comments MCH (test code = MCH) 29.2 pg 27.0-31.0 [facility] CenterDxvgubvMPOMXDSYWD9207-61-40 04:57:00 Test Item Value Reference Range Interpretation Comments MCHC (test code = MCHC) 33.6 32.0-36.0 [facility] CenterTewjjndAEYYSFDDZU5530-97-10 04:57:00 Test Item Value Reference Range Interpretation Comments RDW (test code = RDW) 13.1 11.5-14.5 [facility] CenterFdkngmeKRTSGYZIVZ6344-61-13 04:57:00 Test Item Value Reference Range Interpretation Comments Platelet (test code = Platelet) 162 133-450 [facility] CenterZvycawuKBPCAZZFDT3995-53-92 04:57:00 Test Item Value Reference Range Interpretation Comments MPV (test code = MPV) 9.8 7.4-10.4 [facility] CenterCsmavbtNLYRQVMQUQ9056-81-03 04:57:00 Test Item Value Reference Range Interpretation Comments Segs (test code = Segs) 79.0 45.0-75.0 [facility] CenterOkgykdyCNHUDZPCXU1635-92-25 04:57:00 Test Item Value Reference Range Interpretation Comments Lymphocytes (test code = Lymphocytes) 13.7 20.0-40.0 [facility] HealthVpaykiaPIAWCLNSDF5874-55-59 04:57:00 Test Item Value Reference Range Interpretation Comments Monocytes (test code = Monocytes) 6.5 2.0-12.0 [facility] CenterNosieroZGSFYQUPOI5684-68-03 04:57:00 Test Item Value Reference Range Interpretation Comments Eosinophils (test code = 0.5 See_Comment [A utomated message] The Eosinophils) system which ge nerated this result tra nsmitted reference range : <=4.0. The reference r annemarie was not used to int erpret this result as normal/abnormal . [facility] CenterFfenmxdEQCFZYWOYI2993-99-85 04:57:00 Test Item Value Reference Range Interpretation Comments Basophils (test code = 0.3 See_Comment [Aut omated message] The Basophils) system which ge nerated this result tra nsmitted reference range : <=1.0. The reference r annemarie was not used to int erpret this result as normal/abnormal . [facility] CenterHsshinnWGGSLUQVTH5839-14-76 04:57:00 Test Item Value Reference Range Interpretation Comments Neutrophils # (test code = Neutrophils 7.3 1.5-8.1 #) [facility] CenterUtdynqyVBFRDKQMMX8816-01-57 04:57:00 Test Item Value Reference Range Interpretation Comments Lymphocytes # (test code = Lymphocytes 1.3 1.0-5.5 #) [facility] CenterMvcecnuPRUDLRFBPQ4791-02-02 04:57:00 Test Item Value Reference Range Interpretation Comments Monocytes # (test code 0.6 See_Comment [Aut omated message] The = Monocytes #) system which generated this result tra nsmitted reference range : <=0.8. The reference r annemarie was not used to int erpret this result as normal/abnormal . [facility]bergQyypyonWBMFACCWWF9579-40-29 04:57:00 Test Item Value Reference Range Interpretation Comments Ethanol Lvl (test code = Ethanol Lvl) no gt [facility] KlebergPrzuzyzDAODRSIKNQ5597-03-09 04:57:00 Test Item Value Reference Range Interpretation Comments Etoh (%) (test code = Etoh (%)) [facility]QoowhbqISMHPDXMJD8345-23-13 04:57:00 Test Item Value Reference Range Interpretation Comments Acetaminoph Lvl (test code (12/14/19 11:57 PM) 10-20 = Acetaminoph Lvl) [facility] KlebergLatkpklACKVWWHNWD2439-62-70 04:57:00 Test Item Value Reference Range Interpretation Comments Salicylate Lvl (test 3.4 See_Comment [Autom ated message] The code = Salicylate Lvl) syste m which generated this result tra nsmitted reference range : <=30.0. The reference r annemarie was not used to int erpret this result as normal/abnormal . [facility] [id number] 04:57:00 Test Item Value Reference Range Interpretation Comments Glucose Lvl (test code = Glucose Lvl) 141 70-99 [facility] [id number] 04:57:00 Test Item Value Reference Range Interpretation Comments BUN (test code = BUN) 7 7-22 [facility] [id number] 04:57:00 Test Item Value Reference Range Interpretation Comments Creatinine Lvl (test code = Creatinine 1.10 0.50-1.40 Lvl) [facility] [id number] 04:57:00 Test Item Value Reference Range Interpretation Comments Sodium Lvl (test code = Sodium Lvl) 138 135-145 [facility] [id number] 04:57:00 Test Item Value Reference Range Interpretation Comments Potassium Lvl (test code = Potassium 3.1 3.5-5.1 Lvl) [facility] [id number] 04:57:00 Test Item Value Reference Range Interpretation Comments Chloride Lvl (test code = Chloride Lvl) 106 95-109 [facility] [id number] 04:57:00 Test Item Value Reference Range Interpretation Comments CO2 (test code = CO2) 27 24-32 [facility] [id number] 04:57:00 Test Item Value Reference Range Interpretation Comments Calcium Lvl (test code = Calcium Lvl) 8.9 8.5-10.5 [facility] [id number] 04:57:00 Test Item Value Reference Range Interpretation Comments Albumin Lvl (test code = Albumin Lvl) 4.2 3.5-5.0 [facility] [id number] 04:57:00 Test Item Value Reference Range Interpretation Comments AGAP (test code = AGAP) 8.1 10.0-20.0 [place] [id number] 04:57:00 Test Item Value Reference Range Interpretation Comments B/C Ratio (test code = B/C Ratio) 6 1 6-25 [place] [address]-08-16 04:57:00 Test Item Value Reference Range Interpretation Comments eGFR (test code = eGFR) 89 [place] [id number] 04:57:00 Test Item Value Reference Range Interpretation Comments Total Protein (test code = Total 7.6 6.4-8.4 Protein) [facility]2020-08-16 04:57:00 Test Item Value Reference Range Interpretation Comments ALT (test code = ALT) 23 See_Comment [Auto mated message] The system which ge nerated this result transmit abdelrahman reference range : <=65. The reference range was not used to interpr et this result as gurpreet l/abnormal. [facility] [id number] 04:57:00 Test Item Value Reference Range Interpretation Comments AST (test code = AST) 16 See_Comment [Auto mated message] The system which ge nerated this result transmit abdelrahman reference range : <=37. The reference range was not used to interpr et this result as gurpreet l/abnormal. [facility] [id number] 04:57:00 Test Item Value Reference Range Interpretation Comments Alk Phos (test code = Alk Phos) 38 39-136 [facility] [id number] 04:57:00 Test Item Value Reference Range Interpretation Comments Bili Total (test code = Bili Total) 0.3 0.2-1.3 [facility] VITEL0738-18-72 04:57:00 Test Item Value Reference Range Interpretation Comments Globulin (test code = Globulin) 3.4 2.7-4.2 [facility] [id number] 04:57:00 Test Item Value Reference Range Interpretation Comments A/G Ratio (test code = A/G Ratio) 1.2 1 0.7-1.6 [place] [address]-08-16 04:57:00 Test Item Value Reference Range Interpretation Comments WBC (test code = WBC) 9.2 3.7-10.4 [facility] KlebergOecgjhjKZDQYSRPZE3513-34-83 04:57:00 Test Item Value Reference Range Interpretation Comments RBC (test code = RBC) 4.56 4.70-6.10 [facility] CenterXwyqsobYXMMTMMPPT7778-69-55 04:57:00 Test Item Value Reference Range Interpretation Comments Hgb (test code = Hgb) 13.3 14.0-18.0 [facility] CenterNqnhskjFPRIQNTAFI8852-23-21 04:57:00 Test Item Value Reference Range Interpretation Comments Hct (test code = Hct) 39.7 42.0-54.0 [facility] CenterEcgkqfqVOQYGLBHHJ7001-02-94 04:57:00 Test Item Value Reference Range Interpretation Comments MCV (test code = MCV) 87.0 80.0-94.0 [facility] CenterStijoacPCVRJUSDCR3186-77-05 04:57:00 Test Item Value Reference Range Interpretation Comments MCH (test code = MCH) 29.2 pg 27.0-31.0 [facility] CenterVnzrijgBUVDZILUCR6396-21-02 04:57:00 Test Item Value Reference Range Interpretation Comments MCHC (test code = MCHC) 33.6 32.0-36.0 [facility] CenterUhkrgszYOIEKVBGAB2222-25-06 04:57:00 Test Item Value Reference Range Interpretation Comments RDW (test code = RDW) 13.1 11.5-14.5 [facility] CenterUbdxigfHZASLTRHZI0119-89-05 04:57:00 Test Item Value Reference Range Interpretation Comments Platelet (test code = Platelet) 162 133-450 [facility] CenterIsevofmRQXDMWJUYT7417-75-17 04:57:00 Test Item Value Reference Range Interpretation Comments MPV (test code = MPV) 9.8 7.4-10.4 [facility] CenterReaydasNSNIHGOTKL3140-23-83 04:57:00 Test Item Value Reference Range Interpretation Comments Segs (test code = Segs) 79.0 45.0-75.0 [facility] CenterEhoaiioWZQBSOBPGS9769-22-24 04:57:00 Test Item Value Reference Range Interpretation Comments Lymphocytes (test code = Lymphocytes) 13.7 20.0-40.0 [place] 878670-08-16 04:57:00 Test Item Value Reference Range Interpretation Comments Monocytes (test code = Monocytes) 6.5 2.0-12.0 [place] [address]-08-16 04:57:00 Test Item Value Reference Range Interpretation Comments Eosinophils (test code = 0.5 See_Comment [A utomated message] The Eosinophils) system which ge nerated this result tra nsmitted reference range : <=4.0. The reference r annemarie was not used to int erpret this result as normal/abnormal . [facility] CenterGqpsvnbHKJQQLTVGD9702-35-15 04:57:00 Test Item Value Reference Range Interpretation Comments Basophils (test code = 0.3 See_Comment [Aut omated message] The Basophils) system which ge nerated this result tra nsmitted reference range : <=1.0. The reference r annemarie was not used to int erpret this result as normal/abnormal . [facility] CenterXrkweotTSGUNVFHJU6213-96-84 04:57:00 Test Item Value Reference Range Interpretation Comments Neutrophils # (test code = Neutrophils 7.3 1.5-8.1 #) [facility] CenterHnusrffQVJSDWLLKZ5110-44-65 04:57:00 Test Item Value Reference Range Interpretation Comments Lymphocytes # (test code = Lymphocytes 1.3 1.0-5.5 #) [facility] CenterBytwwxfSCKRMXBYRI1995-28-89 04:57:00 Test Item Value Reference Range Interpretation Comments Monocytes # (test code 0.6 See_Comment [Aut omated message] The = Monocytes #) system which generated this result tra nsmitted reference range : <=0.8. The reference r annemarie was not used to int erpret this result as normal/abnormal . [facility]bergWlayxjmFNUUIJPJEZ8484-25-81 04:57:00 Test Item Value Reference Range Interpretation Comments Ethanol Lvl (test code = Ethanol Lvl) no gt [facility] [facility]LzottxlDLUKQYWSQI9323-11-73 04:57:00 Test Item Value Reference Range Interpretation Comments Etoh (%) (test code = Etoh (%)) no gt [facility]MhkgtdzLSHKHJGOPH8822-96-24 04:57:00 Test Item Value Reference Range Interpretation Comments Acetaminoph Lvl (test code (12/14/19 11:57 PM) 10-20 = Acetaminoph Lvl) [facility]UgcykurNFCYRUUBWL0606-33-42 04:57:00 Test Item Value Reference Range Interpretation Comments Salicylate Lvl (test 3.4 See_Comment [Autom ated message] The code = Salicylate Lvl) syste m which generated this result tra nsmitted reference range : <=30.0. The reference r annemarie was not used to int erpret this result as normal/abnormal . [facility]EkhpdtdHOZVSTAXTV9345-64-32 13:17:00 Test Item Value Reference Range Interpretation Comments Platelet (test code = Platelet) 165 133-450 [facility] CenterQclihukPDQDELIBHT2347-23-16 13:17:00 Test Item Value Reference Range Interpretation Comments RBC (test code = RBC) 4.63 4.70-6.10 [facility] CenterHqudijsJRRSWBKCPU8855-24-05 13:17:00 Test Item Value Reference Range Interpretation Comments Hgb (test code = Hgb) 12.9 14.0-18.0 [facility] CenterVdectncFZDSUTQYPV1379-89-70 13:17:00 Test Item Value Reference Range Interpretation Comments Hct (test code = Hct) 38.4 42.0-54.0 [facility] CenterUkopxnyHSUFDXLCGA3280-22-95 13:17:00 Test Item Value Reference Range Interpretation Comments WBC (test code = WBC) 8.2 3.7-10.4 [facility] CenterXjtondhMIIGAEIUNV8861-61-21 13:17:00 Test Item Value Reference Range Interpretation Comments Monocytes # (test code 0.9 See_Comment [Aut omated message] The = Monocytes #) system which generated this result tra nsmitted reference range : <=0.8. The reference r annemarie was not used to int erpret this result as normal/abnormal . [facility] CenterRogudakRLCFPLGNAM6104-63-46 13:17:00 Test Item Value Reference Range Interpretation Comments Eosinophils # (test code 0.1 See_Comment [A utomated message] The = Eosinophils #) system whic h generated this result tra nsmitted reference range : <=0.5. The reference r annemarie was not used to int erpret this result as normal/abnormal . [facility] CenterDxhvdscLUMZZIDTPL6273-77-60 13:17:00 Test Item Value Reference Range Interpretation Comments Lymphocytes # (test code = Lymphocytes 1.1 1.0-5.5 #) [facility] CenterPvrsdxmHTTTRKDDLC4481-95-84 13:17:00 Test Item Value Reference Range Interpretation Comments Neutrophils # (test code = Neutrophils 6.1 1.5-8.1 #) [facility] CenterHuvowzpRACSYPPGLX4588-47-97 13:17:00 Test Item Value Reference Range Interpretation Comments Monocytes (test code = Monocytes) 11.1 2.0-12.0 [facility] CenterYekygcvVCKBZURUHI7857-53-48 13:17:00 Test Item Value Reference Range Interpretation Comments Eosinophils (test code = 0.9 See_Comment [A utomated message] The Eosinophils) system which ge nerated this result tra nsmitted reference range : <=4.0. The reference r annemarie was not used to int erpret this result as normal/abnormal . [facility]bergGbdhwobXNFEDTSJMJ9244-42-07 13:17:00 Test Item Value Reference Range Interpretation Comments Basophils (test code = 0.2 See_Comment [Aut omated message] The Basophils) system which ge nerated this result tra nsmitted reference range : <=1.0. The reference r annemarie was not used to int erpret this result as normal/abnormal . [facility] HealthBcklnhsGJPAHJUDZO9942-63-56 13:17:00 Test Item Value Reference Range Interpretation Comments Segs (test code = Segs) 74.9 45.0-75.0 [facility] HealthJxbynqsOMNJTINAUO6957-25-21 13:17:00 Test Item Value Reference Range Interpretation Comments Lymphocytes (test code = Lymphocytes) 12.9 20.0-40.0 [facility] CenterJhbxgvhVFZKBCHDLS8783-96-01 13:17:00 Test Item Value Reference Range Interpretation Comments Salicylate Lvl (test no gt See_Comment [Autom ated message] The code = Salicylate Lvl) syste m which generated this result tra nsmitted reference range : <=30.0. The reference r annemarie was not used to int erpret this result as normal/abnormal . [facility]bergCoypapwOPMWXLSJEK0129-72-52 13:17:00 Test Item Value Reference Range Interpretation Comments Acetaminoph Lvl (test code = 3 10-20 Acetaminoph Lvl) [facility]bergCARDIAC KRWARKP4912-92-62 13:17:00 Test Item Value Reference Range Interpretation Comments Total CK (test code = Total CK) 815 12-191 [facility] LancasterBfelvtxCHCZZNOJZZWA5957-41-58 13:17:00 Test Item Value Reference Range Interpretation Comments AGAP (test code = AGAP) 14.8 10.0-20.0 [facility]AfotcfvVLREJMNDUBZE4836-82-15 13:17:00 Test Item Value Reference Range Interpretation Comments eGFR (test code = eGFR) 93 [facility] CenterHerfuskYRNKHKOADKLA0883-95-85 13:17:00 Test Item Value Reference Range Interpretation Comments Creatinine Lvl (test code = Creatinine 1.07 0.50-1.40 Lvl) [facility] HospitalXmtgvzvLISRCRWCQQIP2153-59-21 13:17:00 Test Item Value Reference Range Interpretation Comments Sodium Lvl (test code = Sodium Lvl) 135 135-[address] [facility] HospitalMtzvrqmRLDJIXHWSXCQ5963-30-81 13:17:00 Test Item Value Reference Range Interpretation Comments Potassium Lvl (test code = Potassium 3.8 3.5-5.1 Lvl) [facility] HospitalSbiqfsoBLJICEVPYTNS6249-75-76 13:17:00 Test Item Value Reference Range Interpretation Comments Calcium Lvl (test code = Calcium Lvl) 9.3 8.5-10.5 [facility] HospitalJdesqdmTWLNPYKUKIAB2965-97-23 13:17:00 Test Item Value Reference Range Interpretation Comments CO2 (test code = CO2) 23 24-32 [facility] HospitalCrormcpPACXWHTCEBNO9382-55-92 13:17:00 Test Item Value Reference Range Interpretation Comments Chloride Lvl (test code = Chloride Lvl) 101 95-109 [facility] HospitalHnwslqbOXHWDEPEKBAZ5925-09-59 13:17:00 Test Item Value Reference Range Interpretation Comments Glucose Lvl (test code = Glucose Lvl) 94 70-99 [facility] HospitalRgucbhsSIVTKEVABAGV9455-68-60 13:17:00 Test Item Value Reference Range Interpretation Comments BUN (test code = BUN) 17 7-22 [facility] CenterOhzhmfpNEMTOJZONH5564-18-83 13:17:00 Test Item Value Reference Range Interpretation Comments MCHC (test code = MCHC) 33.6 32.0-36.0 [facility] CenterGylkeszBBIOFTFQPK8651-34-67 13:17:00 Test Item Value Reference Range Interpretation Comments RDW (test code = RDW) 14.7 11.5-14.5 [facility] CenterLmwdvqqWRYUYGLMYS1454-87-55 13:17:00 Test Item Value Reference Range Interpretation Comments MCH (test code = MCH) 27.9 pg 27.0-31.0 [facility] CenterZtvbogfUVLRUAFDVD1959-66-68 13:17:00 Test Item Value Reference Range Interpretation Comments MCV (test code = MCV) 83.1 80.0-94.0 [facility] CenterAycsjkcMBZRZTRQZG3115-59-26 13:17:00 Test Item Value Reference Range Interpretation Comments MPV (test code = MPV) 9.9 7.4-10.4 [facility] CenterIhovcsvZBVUZANAOM6960-41-88 13:17:00 Test Item Value Reference Range Interpretation Comments Platelet (test code = Platelet) 165 133-450 [facility] CenterHzngvlkWRGFJHKPYZ7981-95-55 13:17:00 Test Item Value Reference Range Interpretation Comments RBC (test code = RBC) 4.63 4.70-6.10 [facility] CenterLfjsnxvJQRJMNPXQN1924-41-22 13:17:00 Test Item Value Reference Range Interpretation Comments Hgb (test code = Hgb) 12.9 14.0-18.0 [facility] CenterCpjjpygIDQZAVHALC5968-02-27 13:17:00 Test Item Value Reference Range Interpretation Comments Hct (test code = Hct) 38.4 42.0-54.0 [facility] CenterWuktcciAUZHXACXLM1787-58-65 13:17:00 Test Item Value Reference Range Interpretation Comments WBC (test code = WBC) 8.2 3.7-10.4 [facility] CenterVletphqQYZDIELQGS2973-44-13 13:17:00 Test Item Value Reference Range Interpretation Comments Monocytes # (test code 0.9 See_Comment [Aut omated message] The = Monocytes #) system which generated this result tra nsmitted reference range : <=0.8. The reference r annemarie was not used to int erpret this result as normal/abnormal . [facility] CenterRvwxquzKYPQPLKNDR9072-40-36 13:17:00 Test Item Value Reference Range Interpretation Comments Eosinophils # (test code 0.1 See_Comment [A utomated message] The = Eosinophils #) system whic h generated this result tra nsmitted reference range : <=0.5. The reference r annemarie was not used to int erpret this result as normal/abnormal . [facility] CenterBrobnrzMXRBKWUUYK3177-47-89 13:17:00 Test Item Value Reference Range Interpretation Comments Lymphocytes # (test code = Lymphocytes 1.1 1.0-5.5 #) [facility] CenterHwyqssqLVTEWZDDLY5337-28-21 13:17:00 Test Item Value Reference Range Interpretation Comments Neutrophils # (test code = Neutrophils 6.1 1.5-8.1 #) [facility] CenterLembepgMSUUQKJLBU0825-71-84 13:17:00 Test Item Value Reference Range Interpretation Comments Monocytes (test code = Monocytes) 11.1 2.0-12.0 [facility] HealthKditkboLJRSAFWVTI6929-32-64 13:17:00 Test Item Value Reference Range Interpretation Comments Eosinophils (test code = 0.9 See_Comment [A utomated message] The Eosinophils) system which ge nerated this result tra nsmitted reference range : <=4.0. The reference r annemarie was not used to int erpret this result as normal/abnormal . [facility] HealthUpoxjpxYVFUCCGEKW4218-63-22 13:17:00 Test Item Value Reference Range Interpretation Comments Basophils (test code = 0.2 See_Comment [Aut omated message] The Basophils) system which ge nerated this result tra nsmitted reference range : <=1.0. The reference r annemarie was not used to int erpret this result as normal/abnormal . [facility] HealthSgtokfjXIYXMUWLIK8585-02-28 13:17:00 Test Item Value Reference Range Interpretation Comments Segs (test code = Segs) 74.9 45.0-75.0 [facility] HealthLuqyjgpITFTHSKTEH3434-52-76 13:17:00 Test Item Value Reference Range Interpretation Comments Lymphocytes (test code = Lymphocytes) 12.9 20.0-40.0 [facility] CenterUzlhwrfJGZGOLEULK3402-27-10 13:17:00 Test Item Value Reference Range Interpretation Comments Salicylate Lvl (test no gt See_Comment [Autom ated message] The code = Salicylate Lvl) syste m which generated this result tra nsmitted reference range : <=30.0. The reference r annemarie was not used to int erpret this result as normal/abnormal . [facility]bergYigcpwyZCRKUCROOF8033-38-02 13:17:00 Test Item Value Reference Range Interpretation Comments Acetaminoph Lvl (test code = 3 10-20 Acetaminoph Lvl) [facility]CARD[facility] ILWARCK8717-92-35 13:17:00 Test Item Value Reference Range Interpretation Comments Total CK (test code = Total CK) 815 12-191 [facility] LancasterJssesloBLDEAOIVUIQZ5605-20-27 13:17:00 Test Item Value Reference Range Interpretation Comments AGAP (test code = AGAP) 14.8 10.0-20.0 [facility] LancasterTjopxygAWEUEZXJHXHZ9789-49-02 13:17:00 Test Item Value Reference Range Interpretation Comments eGFR (test code = eGFR) [address] [facility] HospitalKyerrpmCBLQTFNWDZGI8714-93-86 13:17:00 Test Item Value Reference Range Interpretation Comments Creatinine Lvl (test code = Creatinine 1.07 0.50-1.40 Lvl) [facility] HospitalSlqhxasUTVCWPFVLUEK8161-08-44 13:17:00 Test Item Value Reference Range Interpretation Comments Sodium Lvl (test code = Sodium Lvl) 135 135-[address] [facility] HospitalAxadvqoRWBFXOWTSBMG8075-49-68 13:17:00 Test Item Value Reference Range Interpretation Comments Potassium Lvl (test code = Potassium 3.8 3.5-5.1 Lvl) [facility] HospitalObhypumJCMUDWABXLFJ5520-41-65 13:17:00 Test Item Value Reference Range Interpretation Comments Calcium Lvl (test code = Calcium Lvl) 9.3 8.5-10.5 [facility] HospitalPvesfjmTUXISYIWZPBR4685-44-46 13:17:00 Test Item Value Reference Range Interpretation Comments CO2 (test code = CO2) 23 24-32 [facility] HospitalChdxwmbUYQJFHFFIPPC9626-85-58 13:17:00 Test Item Value Reference Range Interpretation Comments Chloride Lvl (test code = Chloride Lvl) 101 95-109 [facility] HospitalAudhnohVDXXBRYIEBXY8709-47-52 13:17:00 Test Item Value Reference Range Interpretation Comments Glucose Lvl (test code = Glucose Lvl) 94 70-99 [facility] HospitalJxqsjebPQERJOCTGCDG9746-48-12 13:17:00 Test Item Value Reference Range Interpretation Comments BUN (test code = BUN) 17 7-22 [facility] CenterPnudgvePYQKXPYFTC8429-18-32 13:17:00 Test Item Value Reference Range Interpretation Comments MCHC (test code = MCHC) 33.6 32.0-36.0 [facility] CenterQaaldpdLQDLLGNSLK0049-29-11 13:17:00 Test Item Value Reference Range Interpretation Comments RDW (test code = RDW) 14.7 11.5-14.5 [facility] CenterTddmlgwXQYWDRRAFK4742-78-77 13:17:00 Test Item Value Reference Range Interpretation Comments MCH (test code = MCH) 27.9 pg 27.0-31.0 [facility] CenterCisywhdEDQYQZJZTV9740-44-89 13:17:00 Test Item Value Reference Range Interpretation Comments MCV (test code = MCV) 83.1 80.0-94.0 [facility] CenterJlsigacXAAKKUZCWW9154-60-96 13:17:00 Test Item Value Reference Range Interpretation Comments MPV (test code = MPV) 9.9 7.4-10.4 [facility] CenterFocqdwbYCTJCZRLSD2134-43-82 13:17:00 Test Item Value Reference Range Interpretation Comments Platelet (test code = Platelet) 165 133-450 [facility] CenterAaexonwSZJDHKAQZL0355-51-79 13:17:00 Test Item Value Reference Range Interpretation Comments RBC (test code = RBC) 4.63 4.70-6.10 [facility] CenterVkvgnioREFUINBIGS4228-98-45 13:17:00 Test Item Value Reference Range Interpretation Comments Hgb (test code = Hgb) 12.9 14.0-18.0 [facility] CenterHgycewhNKFNNNLYST9141-59-97 13:17:00 Test Item Value Reference Range Interpretation Comments Hct (test code = Hct) 38.4 42.0-54.0 [facility] CenterHinobmvWHLQZEBQER8800-49-16 13:17:00 Test Item Value Reference Range Interpretation Comments WBC (test code = WBC) 8.2 3.7-10.4 [facility] CenterWvpfoiqLBHGVQFFXE9849-53-60 13:17:00 Test Item Value Reference Range Interpretation Comments Monocytes # (test code 0.9 See_Comment [Aut omated message] The = Monocytes #) system which generated this result tra nsmitted reference range : <=0.8. The reference r annemarie was not used to int erpret this result as normal/abnormal . [facility] CenterSerdbkqVKNHDJWJVR5929-64-96 13:17:00 Test Item Value Reference Range Interpretation Comments Eosinophils # (test code 0.1 See_Comment [A utomated message] The = Eosinophils #) system whic h generated this result tra nsmitted reference range : <=0.5. The reference r annemarie was not used to int erpret this result as normal/abnormal . [facility] CenterJkbvvbpQIJANAAXQN6996-42-63 13:17:00 Test Item Value Reference Range Interpretation Comments Lymphocytes # (test code = Lymphocytes 1.1 1.0-5.5 #) [facility] CenterSejtmpqBELISIPDXO2283-25-56 13:17:00 Test Item Value Reference Range Interpretation Comments Neutrophils # (test code = Neutrophils 6.1 1.5-8.1 #) [facility] CenterOiytpqzNGYXZYWECG1266-06-18 13:17:00 Test Item Value Reference Range Interpretation Comments Monocytes (test code = Monocytes) 11.1 2.0-12.0 [facility] HealthKfzxytsVHCMCRQIXY1499-69-24 13:17:00 Test Item Value Reference Range Interpretation Comments Eosinophils (test code = 0.9 See_Comment [A utomated message] The Eosinophils) system which ge nerated this result tra nsmitted reference range : <=4.0. The reference r annemarie was not used to int erpret this result as normal/abnormal . [facility] HealthFuizicpHHURQGPASK0221-98-55 13:17:00 Test Item Value Reference Range Interpretation Comments Basophils (test code = 0.2 See_Comment [Aut omated message] The Basophils) system which ge nerated this result tra nsmitted reference range : <=1.0. The reference r annemarie was not used to int erpret this result as normal/abnormal . [facility] HealthJawoykkRYEBJCAUEV8000-38-41 13:17:00 Test Item Value Reference Range Interpretation Comments Segs (test code = Segs) 74.9 45.0-75.0 [facility] HealthFiqdupbIPCRLOVHDO5498-83-84 13:17:00 Test Item Value Reference Range Interpretation Comments Lymphocytes (test code = Lymphocytes) 12.9 20.0-40.0 [facility] CenterFdxceicGREEGWBFHA9603-80-91 13:17:00 Test Item Value Reference Range Interpretation Comments Salicylate Lvl (test no gt See_Comment [Autom ated message] The code = Salicylate Lvl) syste m which generated this result tra nsmitted reference range : <=30.0. The reference r annemarie was not used to int erpret this result as normal/abnormal . [facility]bergDiqipnoXCYXEOUQYV6639-00-96 13:17:00 Test Item Value Reference Range Interpretation Comments Acetaminoph Lvl (test code = 3 10-20 Acetaminoph Lvl) [facility] SLLHJUG9130-19-51 13:17:00 Test Item Value Reference Range Interpretation Comments Total CK (test code = Total CK) 815 12-191 [facility] CenterQsjbazjBPJAYFHVQVNA9449-49-43 13:17:00 Test Item Value Reference Range Interpretation Comments AGAP (test code = AGAP) 14.8 10.0-20.0 [facility] CenterWjcgyfoMCFZWPWVLKQE7592-57-02 13:17:00 Test Item Value Reference Range Interpretation Comments eGFR (test code = eGFR) [address] [facility] HospitalToyrtonGCIMUHOTJBRB7071-02-82 13:17:00 Test Item Value Reference Range Interpretation Comments Creatinine Lvl (test code = Creatinine 1.07 0.50-1.40 Lvl) [facility] HospitalVjdetqtEROITTZSHXTH5187-21-65 13:17:00 Test Item Value Reference Range Interpretation Comments Sodium Lvl (test code = Sodium Lvl) 135 135-[address] [facility] HospitalMuzhpcfTQFOZSVUYKIU9970-47-07 13:17:00 Test Item Value Reference Range Interpretation Comments Potassium Lvl (test code = Potassium 3.8 3.5-5.1 Lvl) [facility] HospitalIhuzzazZSFWRRZQPJCN3660-16-99 13:17:00 Test Item Value Reference Range Interpretation Comments Calcium Lvl (test code = Calcium Lvl) 9.3 8.5-10.[address] [facility] HospitalIffchvqZMUQGEXEVNOK0870-91-02 13:17:00 Test Item Value Reference Range Interpretation Comments CO2 (test code = CO2) 23 24-32 [facility] HospitalFkxdiuuZHSUAQLXNNAV7890-66-00 13:17:00 Test Item Value Reference Range Interpretation Comments Chloride Lvl (test code = Chloride Lvl) 101 95-109 [facility] HospitalVthzzsrXMUNZZQSMEEG3080-57-35 13:17:00 Test Item Value Reference Range Interpretation Comments Glucose Lvl (test code = Glucose Lvl) 94 70-99 [facility] HospitalPyxqgffYBYNPDOZSNNZ3849-94-29 13:17:00 Test Item Value Reference Range Interpretation Comments BUN (test code = BUN) 17 7-22 [facility] CenterRfwqwcyRQYTVTADSL1234-31-80 13:17:00 Test Item Value Reference Range Interpretation Comments MCHC (test code = MCHC) 33.6 32.0-36.0 [facility] CenterOcslnvvWIJRUVQTQV2573-71-01 13:17:00 Test Item Value Reference Range Interpretation Comments RDW (test code = RDW) 14.7 11.5-14.5 [facility] CenterDdmutzjJMCUGEHBYU0725-96-84 13:17:00 Test Item Value Reference Range Interpretation Comments MCH (test code = MCH) 27.9 pg 27.0-31.0 [facility] CenterQynqgzoRPMCMBQTAL2435-92-10 13:17:00 Test Item Value Reference Range Interpretation Comments MCV (test code = MCV) 83.1 80.0-94.0 [facility] CenterGyqzemqINPQOGTGDR1821-08-25 13:17:00 Test Item Value Reference Range Interpretation Comments MPV (test code = MPV) 9.9 7.4-10.4 [facility] CenterWmsuyraEYPVYERXWA8209-36-39 13:17:00 Test Item Value Reference Range Interpretation Comments Platelet (test code = Platelet) 165 133-450 [facility] CenterWtbzeuuNDYXFIGYUP1652-55-06 13:17:00 Test Item Value Reference Range Interpretation Comments RBC (test code = RBC) 4.63 4.70-6.10 [facility] CenterNrecgetUWVKFOYMMM2919-20-79 13:17:00 Test Item Value Reference Range Interpretation Comments Hgb (test code = Hgb) 12.9 14.0-18.0 [facility] CenterZmvkktsQNRRCKRCLB8138-34-96 13:17:00 Test Item Value Reference Range Interpretation Comments Hct (test code = Hct) 38.4 42.0-54.0 [facility] CenterRfsflzkCYZGSRJDYQ2842-60-59 13:17:00 Test Item Value Reference Range Interpretation Comments WBC (test code = WBC) 8.2 3.7-10.4 [facility] CenterRgunrczXZLCDJJMRD8513-10-72 13:17:00 Test Item Value Reference Range Interpretation Comments Monocytes # (test code 0.9 See_Comment [Aut omated message] The = Monocytes #) system which generated this result tra nsmitted reference range : <=0.8. The reference r annemarie was not used to int erpret this result as normal/abnormal . [facility] CenterSjwtyvtBJKFXBMYYX3839-53-55 13:17:00 Test Item Value Reference Range Interpretation Comments Eosinophils # (test code 0.1 See_Comment [A utomated message] The = Eosinophils #) system whic h generated this result tra nsmitted reference range : <=0.5. The reference r annemarie was not used to int erpret this result as normal/abnormal . [facility] CenterIsqjrrdKFMLADWTMT2262-67-73 13:17:00 Test Item Value Reference Range Interpretation Comments Lymphocytes # (test code = Lymphocytes 1.1 1.0-5.5 #) [facility] CenterRbszcqkDZBRAZILLM8189-46-39 13:17:00 Test Item Value Reference Range Interpretation Comments Neutrophils # (test code = Neutrophils 6.1 1.5-8.1 #) [facility] CenterUqgdasmJKSUCENPZP2877-99-68 13:17:00 Test Item Value Reference Range Interpretation Comments Monocytes (test code = Monocytes) 11.1 2.0-12.0 [facility] HealthEsiqvbhXUNJQXSTYA2551-33-03 13:17:00 Test Item Value Reference Range Interpretation Comments Eosinophils (test code = 0.9 See_Comment [A utomated message] The Eosinophils) system which ge nerated this result tra nsmitted reference range : <=4.0. The reference r annemarie was not used to int erpret this result as normal/abnormal . [facility] HealthKgbsnzxNRZYFXSVDZ7956-72-11 13:17:00 Test Item Value Reference Range Interpretation Comments Basophils (test code = 0.2 See_Comment [Aut omated message] The Basophils) system which ge nerated this result tra nsmitted reference range : <=1.0. The reference r annemarie was not used to int erpret this result as normal/abnormal . [facility] HealthPlugzhaPQGXTDBZWP0598-22-20 13:17:00 Test Item Value Reference Range Interpretation Comments Segs (test code = Segs) 74.9 45.0-75.0 [facility] HealthIyycyziAODOKUWNAN0984-51-61 13:17:00 Test Item Value Reference Range Interpretation Comments Lymphocytes (test code = Lymphocytes) 12.9 20.0-40.0 [facility] CenterHltpcjtOMLFHKMIWI8973-63-69 13:17:00 Test Item Value Reference Range Interpretation Comments Salicylate Lvl (test no gt See_Comment [Autom ated message] The code = Salicylate Lvl) syste m which generated this result tra nsmitted reference range : <=30.0. The reference r annemarie was not used to int erpret this result as normal/abnormal . [facility]JdkbwigNFHSMOMLQZ1985-23-42 13:17:00 Test Item Value Reference Range Interpretation Comments Acetaminoph Lvl (test code = 3 10-20 Acetaminoph Lvl) [facility] ANHEYOE7252-31-66 13:17:00 Test Item Value Reference Range Interpretation Comments Total CK (test code = Total CK) 815 12-191 [facility] LancasterUoidzhhIPZCRBNVKEKU9687-00-10 13:17:00 Test Item Value Reference Range Interpretation Comments AGAP (test code = AGAP) 14.8 10.0-20.0 [facility] LancasterZzmffmuGIPRHMRPTSFC1280-22-54 13:17:00 Test Item Value Reference Range Interpretation Comments eGFR (test code = eGFR) [facility] HospitalHjrutjoMXERDBUBEINT2205-16-09 13:17:00 Test Item Value Reference Range Interpretation Comments Creatinine Lvl (test code = Creatinine 1.07 0.50-1.40 Lvl) [facility] HospitalKbpsmogREBNXUBLVDQA7659-16-84 13:17:00 Test Item Value Reference Range Interpretation Comments Sodium Lvl (test code = Sodium Lvl) 135 135-[address] [facility] HospitalIdsorbvQHXQNSKNGVPE6688-66-03 13:17:00 Test Item Value Reference Range Interpretation Comments Potassium Lvl (test code = Potassium 3.8 3.5-5.1 Lvl) [facility] HospitalEtlfzfxZDQBHRZLVYLS9410-95-35 13:17:00 Test Item Value Reference Range Interpretation Comments Calcium Lvl (test code = Calcium Lvl) 9.3 8.5-10.5 [facility] HospitalCnjgamxKSEONSRRJMNG6549-47-21 13:17:00 Test Item Value Reference Range Interpretation Comments CO2 (test code = CO2) 23 24-32 [facility] HospitalBgtbyaaUHRRTPJMZBJG1321-52-65 13:17:00 Test Item Value Reference Range Interpretation Comments Chloride Lvl (test code = Chloride Lvl) 101 95-[address] [facility] HospitalKmiakvfVOVHCWMOYVOT2888-63-59 13:17:00 Test Item Value Reference Range Interpretation Comments Glucose Lvl (test code = Glucose Lvl) 94 70-[address] [facility] HospitalZmzatexINRJXZBIRRDG4612-70-28 13:17:00 Test Item Value Reference Range Interpretation Comments BUN (test code = BUN) 17 7-22 [facility]BznhequWMLUUOJLMI5453-93-61 13:17:00 Test Item Value Reference Range Interpretation Comments MCHC (test code = MCHC) 33.6 32.0-36.0 [facility] CenterHsqckieCEIJYOOPXY6151-75-91 13:17:00 Test Item Value Reference Range Interpretation Comments RDW (test code = RDW) 14.7 11.5-14.5 [facility] CenterUzbstffHPMTAHJSTO9446-08-62 13:17:00 Test Item Value Reference Range Interpretation Comments MCH (test code = MCH) 27.9 pg 27.0-31.0 [facility] CenterBzhdwokEVSMULMMWK4334-32-06 13:17:00 Test Item Value Reference Range Interpretation Comments MCV (test code = MCV) 83.1 80.0-94.0 [facility] CenterVlivajjRJXEQSRFTY9240-85-74 13:17:00 Test Item Value Reference Range Interpretation Comments MPV (test code = MPV) 9.9 7.4-10.4 [facility] CenterMassvsaSSXRYJAXMJ0656-42-14 13:17:00 Test Item Value Reference Range Interpretation Comments Platelet (test code = Platelet) 165 133-450 [facility] CenterIdimnlhBTCCSCCASW7528-30-24 13:17:00 Test Item Value Reference Range Interpretation Comments RBC (test code = RBC) 4.63 4.70-6.10 [facility] CenterBuueukkCZIUXSBVCV0570-77-59 13:17:00 Test Item Value Reference Range Interpretation Comments Hgb (test code = Hgb) 12.9 14.0-18.0 [facility] CenterYxytlyqRLRWTMQNKK6775-20-50 13:17:00 Test Item Value Reference Range Interpretation Comments Hct (test code = Hct) 38.4 42.0-54.0 [facility] CenterJhtcgrxYKDKTYMWUN5288-00-99 13:17:00 Test Item Value Reference Range Interpretation Comments WBC (test code = WBC) 8.2 3.7-10.4 [facility] CenterYepucibZZAXJSLRGR5009-20-76 13:17:00 Test Item Value Reference Range Interpretation Comments Monocytes # (test code 0.9 See_Comment [Aut omated message] The = Monocytes #) system which generated this result tra nsmitted reference range : <=0.8. The reference r annemarie was not used to int erpret this result as normal/abnormal . [facility] CenterPhcvdzyGSOHVFEOCR7785-67-34 13:17:00 Test Item Value Reference Range Interpretation Comments Eosinophils # (test code 0.1 See_Comment [A utomated message] The = Eosinophils #) system whic h generated this result tra nsmitted reference range : <=0.5. The reference r annemarie was not used to int erpret this result as normal/abnormal . [facility] CenterGcwfmueJFLNYPPIDA5918-98-40 13:17:00 Test Item Value Reference Range Interpretation Comments Lymphocytes # (test code = Lymphocytes 1.1 1.0-5.5 #) [facility] CenterOiynqusQHIBPZGCUE7804-86-61 13:17:00 Test Item Value Reference Range Interpretation Comments Neutrophils # (test code = Neutrophils 6.1 1.5-8.1 #) [facility] CenterGrvcqzeESHLCUWPWC6432-71-29 13:17:00 Test Item Value Reference Range Interpretation Comments Monocytes (test code = Monocytes) 11.1 2.0-12.0 [facility] HealthFupjzxpYGEMJHADDM4301-45-03 13:17:00 Test Item Value Reference Range Interpretation Comments Eosinophils (test code = 0.9 See_Comment [A utomated message] The Eosinophils) system which ge nerated this result tra nsmitted reference range : <=4.0. The reference r annemarie was not used to int erpret this result as normal/abnormal . [facility] HealthWwllnihUPBLDPMRRF8789-76-70 13:17:00 Test Item Value Reference Range Interpretation Comments Basophils (test code = 0.2 See_Comment [Aut omated message] The Basophils) system which ge nerated this result tra nsmitted reference range : <=1.0. The reference r annemarie was not used to int erpret this result as normal/abnormal . [facility] HealthKusdxeuBNHYCESWFN0559-00-81 13:17:00 Test Item Value Reference Range Interpretation Comments Segs (test code = Segs) 74.9 45.0-75.0 [facility] HealthZuqjkicXIEDHAGCYE0217-51-31 13:17:00 Test Item Value Reference Range Interpretation Comments Lymphocytes (test code = Lymphocytes) 12.9 20.0-40.0 [facility] CenterJjxxctkGIFWPMQLFS2214-42-58 13:17:00 Test Item Value Reference Range Interpretation Comments Salicylate Lvl (test no gt See_Comment [Autom ated message] The code = Salicylate Lvl) syste m which generated this result tra nsmitted reference range : <=30.0. The reference r annemarie was not used to int erpret this result as normal/abnormal . [facility]JxesdevJKSSTRMQJI0667-50-14 13:17:00 Test Item Value Reference Range Interpretation Comments Acetaminoph Lvl (test code = 3 10-20 Acetaminoph Lvl) [facility]bergCARDIAC BGZIHRG1261-13-30 13:17:00 Test Item Value Reference Range Interpretation Comments Total CK (test code = Total CK) 815 12-191 [facility]CvmlvsxDPADODTFAKBE8230-25-63 13:17:00 Test Item Value Reference Range Interpretation Comments AGAP (test code = AGAP) 14.8 10.0-20.0 [facility] LancasterLtvuymcIMFLXCUTFBHI1620-97-70 13:17:00 Test Item Value Reference Range Interpretation Comments eGFR (test code = eGFR) [address] [facility] [address] HospitalOazzkqdZWCJGPVKHVEM4452-98-65 13:17:00 Test Item Value Reference Range Interpretation Comments Creatinine Lvl (test code = Creatinine 1.07 0.50-1.40 Lvl) [facility] HospitalQppilsgMQELEKKVOGHT1373-40-86 13:17:00 Test Item Value Reference Range Interpretation Comments Sodium Lvl (test code = Sodium Lvl) 135 135-145 [facility] HospitalGkmmlzsTDMWGWSOGFKM1806-10-01 13:17:00 Test Item Value Reference Range Interpretation Comments Potassium Lvl (test code = Potassium 3.8 3.5-5.1 Lvl) [facility] HospitalMrijidxDAFKBJNPWZOV0829-83-77 13:17:00 Test Item Value Reference Range Interpretation Comments Calcium Lvl (test code = Calcium Lvl) 9.3 8.5-10.5 [facility] HospitalFmppsvmJZWAMHHSWOMC5513-51-78 13:17:00 Test Item Value Reference Range Interpretation Comments CO2 (test code = CO2) 23 24-32 [facility] HospitalIahvxxvZXFOVDOYUVQK6024-68-67 13:17:00 Test Item Value Reference Range Interpretation Comments Chloride Lvl (test code = Chloride Lvl) 101 95-109 [facility] HospitalEuodffnQTTODWYCZDWM5754-74-44 13:17:00 Test Item Value Reference Range Interpretation Comments Glucose Lvl (test code = Glucose Lvl) 94 70-99 [facility] HospitalNpckakfEUMYORGZDWEX6614-37-82 13:17:00 Test Item Value Reference Range Interpretation Comments BUN (test code = BUN) 17 7-22 [facility] CenterPhyoudiTFLYWJXQBA2123-66-75 13:17:00 Test Item Value Reference Range Interpretation Comments MCHC (test code = MCHC) 33.6 32.0-36.0 [facility] CenterApyrpeeENQOKMWEWG3091-75-09 13:17:00 Test Item Value Reference Range Interpretation Comments RDW (test code = RDW) 14.7 11.5-14.5 [facility] CenterDsajzyvJQNKTVCVRR0230-82-34 13:17:00 Test Item Value Reference Range Interpretation Comments MCH (test code = MCH) 27.9 pg 27.0-31.0 [facility] CenterGkixfnqTISWWAPUCA9468-24-11 13:17:00 Test Item Value Reference Range Interpretation Comments MCV (test code = MCV) 83.1 80.0-94.0 [facility] CenterGkmszzqEUQACHDHQR6209-23-33 13:17:00 Test Item Value Reference Range Interpretation Comments MPV (test code = MPV) 9.9 7.4-10.4 [facility] CenterMkqzmciBAFRRSDJFD0690-18-24 13:17:00 Test Item Value Reference Range Interpretation Comments Platelet (test code = Platelet) 165 133-450 [facility] CenterGvvubexPHQUTZIPQB3738-02-15 13:17:00 Test Item Value Reference Range Interpretation Comments RBC (test code = RBC) 4.63 4.70-6.10 [facility] CenterDdtgesxMUTARLWNQT3157-55-00 13:17:00 Test Item Value Reference Range Interpretation Comments Hgb (test code = Hgb) 12.9 14.0-18.0 [facility] CenterAehnfcfRMTUDOFDOT8652-42-78 13:17:00 Test Item Value Reference Range Interpretation Comments Hct (test code = Hct) 38.4 42.0-54.0 [facility] CenterKecrirvOPPGLGETEV4238-57-07 13:17:00 Test Item Value Reference Range Interpretation Comments WBC (test code = WBC) 8.2 3.7-10.4 [facility] CenterZghgutiVEHFGVKQWL2594-05-19 13:17:00 Test Item Value Reference Range Interpretation Comments Monocytes # (test code 0.9 See_Comment [Aut omated message] The = Monocytes #) system which generated this result tra nsmitted reference range : <=0.8. The reference r annemarie was not used to int erpret this result as normal/abnormal . [facility] CenterBstruelIFPLXBTAJJ1731-34-61 13:17:00 Test Item Value Reference Range Interpretation Comments Eosinophils # (test code 0.1 See_Comment [A utomated message] The = Eosinophils #) system whic h generated this result tra nsmitted reference range : <=0.5. The reference r annemarie was not used to int erpret this result as normal/abnormal . [facility] CenterIxjsvlvGOLXUSXZCN1929-10-05 13:17:00 Test Item Value Reference Range Interpretation Comments Lymphocytes # (test code = Lymphocytes 1.1 1.0-5.5 #) [facility] CenterKipysnfCEPPXHRGNZ8580-36-88 13:17:00 Test Item Value Reference Range Interpretation Comments Neutrophils # (test code = Neutrophils 6.1 1.5-8.1 #) [facility] CenterWpacrmxGHYIZFVWIF2854-27-90 13:17:00 Test Item Value Reference Range Interpretation Comments Monocytes (test code = Monocytes) 11.1 2.0-12.0 [facility] HealthQuirnegZGRUJQHBKP0700-28-71 13:17:00 Test Item Value Reference Range Interpretation Comments Eosinophils (test code = 0.9 See_Comment [A utomated message] The Eosinophils) system which ge nerated this result tra nsmitted reference range : <=4.0. The reference r annemarie was not used to int erpret this result as normal/abnormal . [facility] HealthPuaajafDTWPDXIVNC7139-50-98 13:17:00 Test Item Value Reference Range Interpretation Comments Basophils (test code = 0.2 See_Comment [Aut omated message] The Basophils) system which ge nerated this result tra nsmitted reference range : <=1.0. The reference r annemarie was not used to int erpret this result as normal/abnormal . [facility] HealthEgnsgyeZRWRCARYIK6764-50-25 13:17:00 Test Item Value Reference Range Interpretation Comments Segs (test code = Segs) 74.9 45.0-75.0 [facility] HealthVbnmihqWUZPJHSVZS6799-03-36 13:17:00 Test Item Value Reference Range Interpretation Comments Lymphocytes (test code = Lymphocytes) 12.9 20.0-40.0 [facility] CenterXmkpqgiMYMOFTTZLP9471-01-08 13:17:00 Test Item Value Reference Range Interpretation Comments Salicylate Lvl (test no gt See_Comment [Autom ated message] The code = Salicylate Lvl) syste m which generated this result tra nsmitted reference range : <=30.0. The reference r annemarie was not used to int erpret this result as normal/abnormal . [facility]bergEemserkFJWLKAFTKD9539-36-91 13:17:00 Test Item Value Reference Range Interpretation Comments Acetaminoph Lvl (test code = 3 10-20 Acetaminoph Lvl) [facility]ARD[facility] XHPMVPF9989-65-84 13:17:00 Test Item Value Reference Range Interpretation Comments Total CK (test code = Total CK) 815 12-191 [facility]TbmqobyPWLLZRVQDXND1735-98-69 13:17:00 Test Item Value Reference Range Interpretation Comments AGAP (test code = AGAP) 14.8 10.0-20.0 [facility] HospitalLcyyyhxEXGGWPZLUZHT2138-18-27 13:17:00 Test Item Value Reference Range Interpretation Comments eGFR (test code = eGFR) [address] [facility] HospitalCgzrypoYBMHDWNGEVFC2856-84-41 13:17:00 Test Item Value Reference Range Interpretation Comments Creatinine Lvl (test code = Creatinine 1.07 0.50-1.40 Lvl) [facility] HospitalLywhywgSNVYNAKIIXZN0767-53-81 13:17:00 Test Item Value Reference Range Interpretation Comments Sodium Lvl (test code = Sodium Lvl) 135 135-[address] [facility] HospitalTexnxmrJPHTXIZURTQJ4750-32-92 13:17:00 Test Item Value Reference Range Interpretation Comments Potassium Lvl (test code = Potassium 3.8 3.5-5.1 Lvl) [facility] HospitalEuyaunoFNHLTRLXMDKX5865-50-30 13:17:00 Test Item Value Reference Range Interpretation Comments Calcium Lvl (test code = Calcium Lvl) 9.3 8.5-10.5 [facility] HospitalXduuwigVQCMYZANLZIV1174-10-93 13:17:00 Test Item Value Reference Range Interpretation Comments CO2 (test code = CO2) 23 24-32 [facility] HospitalUooasphFSQJYROJKATS4496-21-01 13:17:00 Test Item Value Reference Range Interpretation Comments Chloride Lvl (test code = Chloride Lvl) 101 95-109 [facility] HospitalHmljdpyAXWWRZQGADPG8141-78-32 13:17:00 Test Item Value Reference Range Interpretation Comments Glucose Lvl (test code = Glucose Lvl) 94 70-99 [facility] HospitalLbcbtznMGPVCMOFPXCJ5695-42-20 13:17:00 Test Item Value Reference Range Interpretation Comments BUN (test code = BUN) 17 7-22 [facility] CenterKxvzcoqQKAQIJJTBV2656-67-82 13:17:00 Test Item Value Reference Range Interpretation Comments MCHC (test code = MCHC) 33.6 32.0-36.0 [facility] CenterJegpbpyUAAHUDUADW5744-30-45 13:17:00 Test Item Value Reference Range Interpretation Comments RDW (test code = RDW) 14.7 11.5-14.5 [facility] CenterFffftvxXKJIIGLKOR5515-56-22 13:17:00 Test Item Value Reference Range Interpretation Comments MCH (test code = MCH) 27.9 pg 27.0-31.0 [facility] CenterTyjfdcrSTKAYEPZED5099-40-37 13:17:00 Test Item Value Reference Range Interpretation Comments MCV (test code = MCV) 83.1 80.0-94.0 [facility] CenterUzlvppcTNSDZUZGEB5202-39-47 13:17:00 Test Item Value Reference Range Interpretation Comments MPV (test code = MPV) 9.9 7.4-10.4 [facility] CenterIuhofcvBYVRQCTJKQ4530-18-32 13:17:00 Test Item Value Reference Range Interpretation Comments Platelet (test code = Platelet) 165 133-450 [facility] CenterFigudlvDQLWUMQKGD7386-15-23 13:17:00 Test Item Value Reference Range Interpretation Comments RBC (test code = RBC) 4.63 4.70-6.10 [facility] CenterBrwxswbMXRXZWTMWH7243-79-71 13:17:00 Test Item Value Reference Range Interpretation Comments Hgb (test code = Hgb) 12.9 14.0-18.0 [facility] CenterRftpzanKZTVEMGPAM7267-25-29 13:17:00 Test Item Value Reference Range Interpretation Comments Hct (test code = Hct) 38.4 42.0-54.0 [facility] CenterBobxfgkSENRHTBITE4955-60-17 13:17:00 Test Item Value Reference Range Interpretation Comments WBC (test code = WBC) 8.2 3.7-10.4 [facility] CenterTzbmfyqRLDMQQGAIU7777-10-20 13:17:00 Test Item Value Reference Range Interpretation Comments Monocytes # (test code 0.9 See_Comment [Aut omated message] The = Monocytes #) system which generated this result tra nsmitted reference range : <=0.8. The reference r annemarie was not used to int erpret this result as normal/abnormal . [facility] CenterPhirxbfADKZFQFGMR3793-22-50 13:17:00 Test Item Value Reference Range Interpretation Comments Eosinophils # (test code 0.1 See_Comment [A utomated message] The = Eosinophils #) system whic h generated this result tra nsmitted reference range : <=0.5. The reference r annemarie was not used to int erpret this result as normal/abnormal . [facility] CenterDjtkcdrINJTCRRNCC2020-50-75 13:17:00 Test Item Value Reference Range Interpretation Comments Lymphocytes # (test code = Lymphocytes 1.1 1.0-5.5 #) [facility] CenterOgkqztjMFIZSBBLUY7706-12-53 13:17:00 Test Item Value Reference Range Interpretation Comments Neutrophils # (test code = Neutrophils 6.1 1.5-8.1 #) [facility] HealthBviyvzqAMKBPDMBWK4665-25-41 13:17:00 Test Item Value Reference Range Interpretation Comments Monocytes (test code = Monocytes) 11.1 2.0-12.0 [facility] HealthIpvzitlZIOHIODVUR2836-12-88 13:17:00 Test Item Value Reference Range Interpretation Comments Eosinophils (test code = 0.9 See_Comment [A utomated message] The Eosinophils) system which ge nerated this result tra nsmitted reference range : <=4.0. The reference r annemarie was not used to int erpret this result as normal/abnormal . [facility] HealthXkoxxyqDZVLKPBZHT8770-17-96 13:17:00 Test Item Value Reference Range Interpretation Comments Basophils (test code = 0.2 See_Comment [Aut omated message] The Basophils) system which ge nerated this result tra nsmitted reference range : <=1.0. The reference r annemarie was not used to int erpret this result as normal/abnormal . [facility] HealthShwykleQBHTHKHJIF8168-22-77 13:17:00 Test Item Value Reference Range Interpretation Comments Segs (test code = Segs) 74.9 45.0-75.0 [facility] HealthZohuemuGWPEXZQXJC8462-07-93 13:17:00 Test Item Value Reference Range Interpretation Comments Lymphocytes (test code = Lymphocytes) 12.9 20.0-40.0 [facility] CenterYstrodyGVHPTQEIWD5022-51-45 13:17:00 Test Item Value Reference Range Interpretation Comments Salicylate Lvl (test no gt See_Comment [Autom ated message] The code = Salicylate Lvl) syste m which generated this result tra nsmitted reference range : <=30.0. The reference r annemarie was not used to int erpret this result as normal/abnormal . [facility]bergUmarxjyZIZAIQZCJK7376-06-15 13:17:00 Test Item Value Reference Range Interpretation Comments Acetaminoph Lvl (test code = 3 10-20 Acetaminoph Lvl) [facility] PPPXRSV0791-78-79 13:17:00 Test Item Value Reference Range Interpretation Comments Total CK (test code = Total CK) 815 12-191 [facility] LancasterSdkvwsxCDVSWAMLOYJZ0636-92-41 13:17:00 Test Item Value Reference Range Interpretation Comments AGAP (test code = AGAP) 14.8 10.0-20.0 [facility] HospitalVfnlsinSEDEDBLOVPQI5744-41-90 13:17:00 Test Item Value Reference Range Interpretation Comments eGFR (test code = eGFR) [address] [facility] HospitalAismkhdSSBSNMYZVFXY8798-11-91 13:17:00 Test Item Value Reference Range Interpretation Comments Creatinine Lvl (test code = Creatinine 1.07 0.50-1.40 Lvl) [facility] HospitalIelylccJUZYMHNBKXUB9057-30-12 13:17:00 Test Item Value Reference Range Interpretation Comments Sodium Lvl (test code = Sodium Lvl) 135 135-[address] [facility] HospitalNztqhzzMFVRRCXOYABL0234-43-29 13:17:00 Test Item Value Reference Range Interpretation Comments Potassium Lvl (test code = Potassium 3.8 3.5-5.1 Lvl) [facility] HospitalUfooxhiDPKJFRYEAIYN9599-45-43 13:17:00 Test Item Value Reference Range Interpretation Comments Calcium Lvl (test code = Calcium Lvl) 9.3 8.5-10.[address] [facility] HospitalOykwlbmCKSAQADKHLEA4049-45-20 13:17:00 Test Item Value Reference Range Interpretation Comments CO2 (test code = CO2) 23 24-32 [facility] HospitalLzpwdjyFCZFLMGLSHWJ9140-51-88 13:17:00 Test Item Value Reference Range Interpretation Comments Chloride Lvl (test code = Chloride Lvl) 101 95-109 [facility] HospitalTiorcupCCBOONWQRJCN4073-51-24 13:17:00 Test Item Value Reference Range Interpretation Comments Glucose Lvl (test code = Glucose Lvl) 94 70-99 [facility] HospitalWbwmklaQIPVVTNXVMAP1002-93-92 13:17:00 Test Item Value Reference Range Interpretation Comments BUN (test code = BUN) 17 7-22 [facility] CenterGzbpqxoXCITDIMFPN1821-80-51 13:17:00 Test Item Value Reference Range Interpretation Comments MCHC (test code = MCHC) 33.6 32.0-36.0 [facility] CenterBhxrkxsZSUXVJQXKJ3627-60-18 13:17:00 Test Item Value Reference Range Interpretation Comments RDW (test code = RDW) 14.7 11.5-14.5 [facility] CenterJazkturXMCHAWEZOO7518-62-14 13:17:00 Test Item Value Reference Range Interpretation Comments MCH (test code = MCH) 27.9 pg 27.0-31.0 [facility] CenterTuvjsnqNAPBHYPCHO4194-52-65 13:17:00 Test Item Value Reference Range Interpretation Comments MCV (test code = MCV) 83.1 80.0-94.0 [facility] CenterCvyspdpREUGSRNWXU5638-84-88 13:17:00 Test Item Value Reference Range Interpretation Comments MPV (test code = MPV) 9.9 7.4-10.4 [place] 551098-12-19 13:17:00 Test Item Value Reference Range Interpretation Comments Platelet (test code = Platelet) 165 133-450 [facility] CenterObpkiulEACVMKOGXL3032-20-25 13:17:00 Test Item Value Reference Range Interpretation Comments RBC (test code = RBC) 4.63 4.70-6.10 [facility] CenterRahqgveMAOHKTSPEU9419-13-53 13:17:00 Test Item Value Reference Range Interpretation Comments Hgb (test code = Hgb) 12.9 14.0-18.0 [facility] CenterTvoojtnSXQZQCXXXY6972-79-06 13:17:00 Test Item Value Reference Range Interpretation Comments Hct (test code = Hct) 38.4 42.0-54.0 [facility] CenterQdjeukpRFTSKJQYSM0634-74-29 13:17:00 Test Item Value Reference Range Interpretation Comments WBC (test code = WBC) 8.2 3.7-10.4 [facility] CenterDgafdpaGYKULBCCVU0592-77-66 13:17:00 Test Item Value Reference Range Interpretation Comments Monocytes # (test code 0.9 See_Comment [Aut omated message] The = Monocytes #) system which generated this result tra nsmitted reference range : <=0.8. The reference r annemarie was not used to int erpret this result as normal/abnormal . [facility] CenterGqgrtuoVYMNRJHZNI1669-42-61 13:17:00 Test Item Value Reference Range Interpretation Comments Eosinophils # (test code 0.1 See_Comment [A utomated message] The = Eosinophils #) system whic h generated this result tra nsmitted reference range : <=0.5. The reference r annemarie was not used to int erpret this result as normal/abnormal . [facility] CenterDcwqfuiIKEGWFGCON8993-67-70 13:17:00 Test Item Value Reference Range Interpretation Comments Lymphocytes # (test code = Lymphocytes 1.1 1.0-5.5 #) [facility] CenterBxjkktlWSUDOKSNKB6914-14-28 13:17:00 Test Item Value Reference Range Interpretation Comments Neutrophils # (test code = Neutrophils 6.1 1.5-8.1 #) [facility] HealthRocayxnTMRSDDPHHV6308-76-86 13:17:00 Test Item Value Reference Range Interpretation Comments Monocytes (test code = Monocytes) 11.1 2.0-12.0 [facility] HealthOjvvxjmNZJMHGUCVK2182-12-37 13:17:00 Test Item Value Reference Range Interpretation Comments Eosinophils (test code = 0.9 See_Comment [A utomated message] The Eosinophils) system which ge nerated this result tra nsmitted reference range : <=4.0. The reference r annemarie was not used to int erpret this result as normal/abnormal . [facility]AynqjbyWEVPMQIMTR5167-44-10 13:17:00 Test Item Value Reference Range Interpretation Comments Basophils (test code = 0.2 See_Comment [Aut omated message] The Basophils) system which ge nerated this result tra nsmitted reference range : <=1.0. The reference r annemarie was not used to int erpret this result as normal/abnormal . [facility] HealthFydhxvvABYDPXXUCA3310-43-50 13:17:00 Test Item Value Reference Range Interpretation Comments Segs (test code = Segs) 74.9 45.0-75.0 [facility]ZqvgmfpZZEMBWZZLP3327-30-99 13:17:00 Test Item Value Reference Range Interpretation Comments Lymphocytes (test code = Lymphocytes) 12.9 20.0-40.0 [facility]FrhdbzeOKMTNFMTQY6198-78-15 13:17:00 Test Item Value Reference Range Interpretation Comments Salicylate Lvl (test no gt See_Comment [Autom ated message] The code = Salicylate Lvl) syste m which generated this result tra nsmitted reference range : <=30.0. The reference r annemarie was not used to int erpret this result as normal/abnormal . [facility]bergFxvdljtYQMMZHVMTF8297-14-90 13:17:00 Test Item Value Reference Range Interpretation Comments Acetaminoph Lvl (test code = 3 10-20 Acetaminoph Lvl) [facility]ARD[facility] GNZGXTT1315-59-87 13:17:00 Test Item Value Reference Range Interpretation Comments Total CK (test code = Total CK) 815 12-191 [facility] LancasterVnongphPVKDUVXMFGCO9937-07-01 13:17:00 Test Item Value Reference Range Interpretation Comments AGAP (test code = AGAP) 14.8 10.0-20.0 [facility] HospitalQckeymtGLYUZTRJZPDT1113-64-49 13:17:00 Test Item Value Reference Range Interpretation Comments eGFR (test code = eGFR) 93 [facility] HospitalVmpoarqMBAXIBAKFDNT7171-19-75 13:17:00 Test Item Value Reference Range Interpretation Comments Creatinine Lvl (test code = Creatinine 1.07 0.50-1.40 Lvl) [facility] HospitalAewqfnrSFGMHTVJAPGE8684-50-17 13:17:00 Test Item Value Reference Range Interpretation Comments Sodium Lvl (test code = Sodium Lvl) 135 135-145 [facility] HospitalRhcnvayYXUIQIIUUXLW5224-74-71 13:17:00 Test Item Value Reference Range Interpretation Comments Potassium Lvl (test code = Potassium 3.8 3.5-5.1 Lvl) [facility] HospitalRqnipvsNGDOYYOCGHAG8991-82-09 13:17:00 Test Item Value Reference Range Interpretation Comments Calcium Lvl (test code = Calcium Lvl) 9.3 8.5-10.5 [facility] HospitalYhnalxvOWWRWPWYNJBO4104-63-37 13:17:00 Test Item Value Reference Range Interpretation Comments CO2 (test code = CO2) 23 24-32 [facility] HospitalUmhmprdANPTAMYAYPDT7198-59-67 13:17:00 Test Item Value Reference Range Interpretation Comments Chloride Lvl (test code = Chloride Lvl) 101 95-109 [facility] HospitalGiypyntGBEMZQHYZUHA0979-63-66 13:17:00 Test Item Value Reference Range Interpretation Comments Glucose Lvl (test code = Glucose Lvl) 94 70-99 [facility] HospitalPdiyaqyDPIRLYHEUSJU6724-50-97 13:17:00 Test Item Value Reference Range Interpretation Comments BUN (test code = BUN) 17 7-22 [facility]LpvmxafRZDDGDHMTZ0274-37-28 13:17:00 Test Item Value Reference Range Interpretation Comments MCHC (test code = MCHC) 33.6 32.0-36.0 [facility] CenterRnfdtrpPNVILRGICJ3054-34-23 13:17:00 Test Item Value Reference Range Interpretation Comments RDW (test code = RDW) 14.7 11.5-14.5 [facility] CenterQsxdmieOPUEJQPPWS5689-86-44 13:17:00 Test Item Value Reference Range Interpretation Comments MCH (test code = MCH) 27.9 pg 27.0-31.0 [facility] CenterAqnioecUOQEORUHKU7926-11-34 13:17:00 Test Item Value Reference Range Interpretation Comments MCV (test code = MCV) 83.1 80.0-94.0 [facility] CenterHglwymdEWMQVKHXNB7610-18-73 13:17:00 Test Item Value Reference Range Interpretation Comments MPV (test code = MPV) 9.9 7.4-10.4 [place] 551098-12-19 13:17:00 Test Item Value Reference Range Interpretation Comments Platelet (test code = Platelet) 165 133-450 [facility] CenterVxgoagnCVWBSWGHIQ0655-84-48 13:17:00 Test Item Value Reference Range Interpretation Comments RBC (test code = RBC) 4.63 4.70-6.10 [facility] CenterRbqovzyYOWPTAJAIR8037-60-39 13:17:00 Test Item Value Reference Range Interpretation Comments Hgb (test code = Hgb) 12.9 14.0-18.0 [place] 551098-12-19 13:17:00 Test Item Value Reference Range Interpretation Comments Hct (test code = Hct) 38.4 42.0-54.0 [facility] CenterPoiqtxcQPNVQPSDFX9903-51-18 13:17:00 Test Item Value Reference Range Interpretation Comments WBC (test code = WBC) 8.2 3.7-10.4 [facility] CenterBapmpwsLVAJNKPFIM8316-37-03 13:17:00 Test Item Value Reference Range Interpretation Comments Monocytes # (test code 0.9 See_Comment [Aut omated message] The = Monocytes #) system which generated this result tra nsmitted reference range : <=0.8. The reference r annemarie was not used to int erpret this result as normal/abnormal . [facility] CenterGolsmdfPUYLESEGLO0819-18-45 13:17:00 Test Item Value Reference Range Interpretation Comments Eosinophils # (test code 0.1 See_Comment [A utomated message] The = Eosinophils #) system whic h generated this result tra nsmitted reference range : <=0.5. The reference r annemarie was not used to int erpret this result as normal/abnormal . [facility] CenterVpfdbjtHPEJSNIQCF0782-18-10 13:17:00 Test Item Value Reference Range Interpretation Comments Lymphocytes # (test code = Lymphocytes 1.1 1.0-5.5 #) [facility] CenterLlvlxayQUFFHRRRYV7184-52-21 13:17:00 Test Item Value Reference Range Interpretation Comments Neutrophils # (test code = Neutrophils 6.1 1.5-8.1 #) [facility] HealthZmjhbxsXUCLCADDOR5557-50-42 13:17:00 Test Item Value Reference Range Interpretation Comments Monocytes (test code = Monocytes) 11.1 2.0-12.0 [facility] HealthKlmevwsSVUURTYWVD5113-32-13 13:17:00 Test Item Value Reference Range Interpretation Comments Eosinophils (test code = 0.9 See_Comment [A utomated message] The Eosinophils) system which ge nerated this result tra nsmitted reference range : <=4.0. The reference r annemarie was not used to int erpret this result as normal/abnormal . [facility] HealthWrdyqwdNAFZLXOZZR5197-61-05 13:17:00 Test Item Value Reference Range Interpretation Comments Basophils (test code = 0.2 See_Comment [Aut omated message] The Basophils) system which ge nerated this result tra nsmitted reference range : <=1.0. The reference r annemarie was not used to int erpret this result as normal/abnormal . [facility] HealthLrhrhydJRTLXDEEOR2659-74-83 13:17:00 Test Item Value Reference Range Interpretation Comments Segs (test code = Segs) 74.9 45.0-75.0 [facility] HealthIwushopIQCGBXELTO4459-86-74 13:17:00 Test Item Value Reference Range Interpretation Comments Lymphocytes (test code = Lymphocytes) 12.9 20.0-40.0 [facility] CenterMkmtfzmVBISWCAAYP0327-24-85 13:17:00 Test Item Value Reference Range Interpretation Comments Salicylate Lvl (test no gt See_Comment [Autom ated message] The code = Salicylate Lvl) syste m which generated this result tra nsmitted reference range : <=30.0. The reference r annemarie was not used to int erpret this result as normal/abnormal . [facility]bergKntdwkjSYWMZGTVWB0089-47-65 13:17:00 Test Item Value Reference Range Interpretation Comments Acetaminoph Lvl (test code = 3 10-20 Acetaminoph Lvl) [facility]CARD[facility] NAGZCBR4545-22-37 13:17:00 Test Item Value Reference Range Interpretation Comments Total CK (test code = Total CK) 815 12-191 [facility] LancasterLihogtlHDDRUVYTLFTD2715-03-19 13:17:00 Test Item Value Reference Range Interpretation Comments AGAP (test code = AGAP) 14.8 10.0-20.0 [facility] HospitalCzpnixxXUPEKZFSBPKQ8394-24-72 13:17:00 Test Item Value Reference Range Interpretation Comments eGFR (test code = eGFR) 93 [facility] HospitalByqokwoVEODHQCQONRE6089-03-66 13:17:00 Test Item Value Reference Range Interpretation Comments Creatinine Lvl (test code = Creatinine 1.07 0.50-1.40 Lvl) [facility] HospitalFifweosAOTPVKXHUYHK1594-66-65 13:17:00 Test Item Value Reference Range Interpretation Comments Sodium Lvl (test code = Sodium Lvl) 135 135-145 [facility] HospitalErvvvogGCTMUAVYWSAA2534-13-75 13:17:00 Test Item Value Reference Range Interpretation Comments Potassium Lvl (test code = Potassium 3.8 3.5-5.1 Lvl) [facility] HospitalDoocdvkPKOHMEFMZPEF3272-95-84 13:17:00 Test Item Value Reference Range Interpretation Comments Calcium Lvl (test code = Calcium Lvl) 9.3 8.5-10.5 [facility] HospitalFnycjgaSESYYELWLTHB3321-61-29 13:17:00 Test Item Value Reference Range Interpretation Comments CO2 (test code = CO2) 23 24-32 [facility] HospitalEgvpfexNPYRZRXYNBLI1514-37-73 13:17:00 Test Item Value Reference Range Interpretation Comments Chloride Lvl (test code = Chloride Lvl) 101 95-109 [facility] HospitalTvwabxxWKDRXDYMEOLR8263-94-40 13:17:00 Test Item Value Reference Range Interpretation Comments Glucose Lvl (test code = Glucose Lvl) 94 70-99 [facility] HospitalNohvvemYXZNOKWLXQGP0833-15-32 13:17:00 Test Item Value Reference Range Interpretation Comments BUN (test code = BUN) 17 7-22 [facility] CenterLkabchcGJMJBEHXPD0802-62-15 13:17:00 Test Item Value Reference Range Interpretation Comments MCHC (test code = MCHC) 33.6 32.0-36.0 [facility] CenterJhrhqxsSPANEXGFHF5836-91-57 13:17:00 Test Item Value Reference Range Interpretation Comments RDW (test code = RDW) 14.7 11.5-14.5 [facility] CenterSfjvptgXKQKHFNJHR0586-21-16 13:17:00 Test Item Value Reference Range Interpretation Comments MCH (test code = MCH) 27.9 pg 27.0-31.0 [facility] CenterOmmnbjqAAVJSXBXQT7435-79-64 13:17:00 Test Item Value Reference Range Interpretation Comments MCV (test code = MCV) 83.1 80.0-94.0 [facility] HealthMfvdtozVFNFIZJYOB4958-64-54 13:17:00 Test Item Value Reference Range Interpretation Comments MPV (test code = MPV) 9.9 7.4-10.4 [facility] ERKTOSW2212-30-62 10:11:00 Test Item Value Reference Range Interpretation Comments Troponin-I (test code no gt See_Comment [Auto mated message] The = Troponin-I) system which g enerated this result transmit abdelrahman reference range : <=0.40. The reference r annemarie was not used to interpr et this result as gurpreet l/abnormal. [facility]bergCHEM YLTJQ5455-30-02 10:11:00 Test Item Value Reference Range Interpretation Comments Phosphorus (test code = Phosphorus) 3.7 2.5-4.5 [facility]bergCHE[facility] UQYQW0495-16-37 10:11:00 Test Item Value Reference Range Interpretation Comments Magnesium Lvl (test code = Magnesium 2.1 1.8-2.4 Lvl) [facility] HospitalDwlkjfkXERZEWNBUXBU0967-07-92 10:11:00 Test Item Value Reference Range Interpretation Comments AGAP (test code = AGAP) 11.0 10.0-20.0 [facility] HospitalUclgbevXQNSGYFRWMKF2247-46-18 10:11:00 Test Item Value Reference Range Interpretation Comments Creatinine Lvl (test code = Creatinine 0.90 0.50-1.40 Lvl) [facility] HospitalTflemakBXVCLIYKOADL9095-85-13 10:11:00 Test Item Value Reference Range Interpretation Comments eGFR (test code = eGFR) 114 [facility] HospitalDvjcprhXMZPRHOSWNGQ1533-18-80 10:11:00 Test Item Value Reference Range Interpretation Comments Calcium Lvl (test code = Calcium Lvl) 8.2 8.5-10.5 [facility] HospitalQifsumrUCPOQTPZIEWW9236-63-57 10:11:00 Test Item Value Reference Range Interpretation Comments CO2 (test code = CO2) 25 24-32 [facility] HospitalLsohnsjOIGSFSQQQDIL6532-33-16 10:11:00 Test Item Value Reference Range Interpretation Comments Chloride Lvl (test code = Chloride Lvl) 108 95-109 [facility] HospitalExhjhcpFFCJNLMGHNPG9627-79-46 10:11:00 Test Item Value Reference Range Interpretation Comments Potassium Lvl (test code = Potassium 4.0 3.5-5.1 Lvl) [facility] HospitalNyctorcSOANQJWWPYVN8945-65-20 10:11:00 Test Item Value Reference Range Interpretation Comments Sodium Lvl (test code = Sodium Lvl) 140 135-145 [facility] HospitalIiuexpnNUBXNUBZEXZZ8953-21-70 10:11:00 Test Item Value Reference Range Interpretation Comments BUN (test code = BUN) 11 7-22 [facility] HospitalBztnnbbDHFPUKSBLCUL4362-44-11 10:11:00 Test Item Value Reference Range Interpretation Comments Glucose Lvl (test code = Glucose Lvl) 85 70-99 [facility] CenterAubvpaxXJEYQPHLHQ8282-56-68 10:11:00 Test Item Value Reference Range Interpretation Comments MCH (test code = MCH) 27.9 pg 27.0-31.0 [facility] CenterQyevaekUWQEOKPHJW1755-27-73 10:11:00 Test Item Value Reference Range Interpretation Comments MCHC (test code = MCHC) 33.5 32.0-36.0 [facility] CenterDbbucupTFIOACPADO9404-18-29 10:11:00 Test Item Value Reference Range Interpretation Comments Hct (test code = Hct) 36.7 42.0-54.0 [facility] CenterCxjyhdbFIOUFUSXNG1796-92-24 10:11:00 Test Item Value Reference Range Interpretation Comments MCV (test code = MCV) 83.1 80.0-94.0 [facility] CenterYhynxapHARIYCUFWZ7134-82-86 10:11:00 Test Item Value Reference Range Interpretation Comments RBC (test code = RBC) 4.42 4.70-6.10 [facility] CenterOenfbdzKFHPPYWACY9580-69-11 10:11:00 Test Item Value Reference Range Interpretation Comments Hgb (test code = Hgb) 12.3 14.0-18.0 [facility] CenterGsnqhjcQKPFECXHKM5225-18-69 10:11:00 Test Item Value Reference Range Interpretation Comments WBC (test code = WBC) 8.5 3.7-10.4 [facility] CenterPmyfroqJNZIEXXQEM4396-80-81 10:11:00 Test Item Value Reference Range Interpretation Comments MPV (test code = MPV) 9.5 7.4-10.4 [facility] CenterCcuwzppPGKUKEGZZN9964-50-45 10:11:00 Test Item Value Reference Range Interpretation Comments RDW (test code = RDW) 14.4 11.5-14.5 [facility] CenterDuldmxlJMPNQRVJEY0600-60-32 10:11:00 Test Item Value Reference Range Interpretation Comments Platelet (test code = Platelet) 164 133-450 [facility] CenterMhdtnzmQAEXHHQKMG1050-24-90 10:11:00 Test Item Value Reference Range Interpretation Comments Lymphocytes # (test code = Lymphocytes 1.2 1.0-5.5 #) [facility] CenterGisvvltOWAIMGJXZM7492-64-05 10:11:00 Test Item Value Reference Range Interpretation Comments Monocytes # (test code 0.6 See_Comment [Aut omated message] The = Monocytes #) system which generated this result tra nsmitted reference range : <=0.8. The reference r annemarie was not used to int erpret this result as normal/abnormal . [facility] CenterHibvfmtYXKKUDFGGG6010-46-85 10:11:00 Test Item Value Reference Range Interpretation Comments Eosinophils # (test code 0.2 See_Comment [A utomated message] The = Eosinophils #) system whic h generated this result tra nsmitted reference range : <=0.5. The reference r annemarie was not used to int erpret this result as normal/abnormal . [facility] CenterNgpbcjtDMZWLYCRWI3985-14-49 10:11:00 Test Item Value Reference Range Interpretation Comments Basophils # (test code 0.0 See_Comment [Aut omated message] The = Basophils #) system which generated this result tra nsmitted reference range : <=0.2. The reference r annemarie was not used to int erpret this result as normal/abnormal . [facility] CenterBvzzggsBIINCYCHTW2400-32-07 10:11:00 Test Item Value Reference Range Interpretation Comments Eosinophils (test code = 2.3 See_Comment [A utomated message] The Eosinophils) system which ge nerated this result tra nsmitted reference range : <=4.0. The reference r annemarie was not used to int erpret this result as normal/abnormal . [facility] CenterVwggfnsECQQTVVREK5416-72-85 10:11:00 Test Item Value Reference Range Interpretation Comments Basophils (test code = 0.3 See_Comment [Aut omated message] The Basophils) system which ge nerated this result tra nsmitted reference range : <=1.0. The reference r annemarie was not used to int erpret this result as normal/abnormal . [place] 551098-12-14 10:11:00 Test Item Value Reference Range Interpretation Comments Neutrophils # (test code = Neutrophils 6.5 1.5-8.1 #) [facility]bergIkhdihwWZPPTSTOAR9992-58-99 10:11:00 Test Item Value Reference Range Interpretation Comments Lymphocytes (test code = Lymphocytes) 14.5 20.0-40.0 [facility] LancasterKemsokbLRBSMUHDEO8519-35-77 10:11:00 Test Item Value Reference Range Interpretation Comments Monocytes (test code = Monocytes) 6.7 2.0-12.0 [facility] KlebergBgcmrgdKIZWTXUNOE1766-93-78 10:11:00 Test Item Value Reference Range Interpretation Comments Segs (test code = Segs) 76.2 45.0-75.0 [facility] KlebergPARATHYROID LAGBRCO2494-61-83 10:11:00 Test Item Value Reference Range Interpretation Comments Ca Norm WB (test code = Ca Norm WB) 1.13 1.05-1.25 [facility] LancasterannPARJAMAICA HOSP[facility] MEDICAL CENTERROID AMXTGWM2830-62-55 10:11:00 Test Item Value Reference Range Interpretation Comments Ca Ion WB (test code = Ca Ion WB) 1.17 1.05-1.25 [facility]CARD[facility] QMDHCRK9411-95-11 10:11:00 Test Item Value Reference Range Interpretation Comments Troponin-I (test code no gt See_Comment [Auto mated message] The = Troponin-I) system which g enerated this result transmit abdelrahman reference range : <=0.40. The reference r annemarie was not used to interpr et this result as gurpreet l/abnormal. [facility]bergCHEM UJFLT9558-20-06 10:11:00 Test Item Value Reference Range Interpretation Comments Phosphorus (test code = Phosphorus) 3.7 2.5-4.5 [facility]bergCHE[facility] OIBSE2414-98-37 10:11:00 Test Item Value Reference Range Interpretation Comments Magnesium Lvl (test code = Magnesium 2.1 1.8-2.4 Lvl) [facility] LancasterHdctlpkWANTWRBHLEBE5327-56-72 10:11:00 Test Item Value Reference Range Interpretation Comments AGAP (test code = AGAP) 11.0 10.0-20.0 [facility] LancasterIdbrusnEGHCXANHOMJL1576-56-44 10:11:00 Test Item Value Reference Range Interpretation Comments Creatinine Lvl (test code = Creatinine 0.90 0.50-1.40 Lvl) [facility] HospitalMwtyuurGMSOWEVEUNGX1541-08-56 10:11:00 Test Item Value Reference Range Interpretation Comments eGFR (test code = eGFR) [address] [facility] HospitalJdfbhqoLNUPJFDMNRAO9327-56-58 10:11:00 Test Item Value Reference Range Interpretation Comments Calcium Lvl (test code = Calcium Lvl) 8.2 8.5-10.5 [facility] HospitalJfapxynSLFPWLJCWMNS7492-35-02 10:11:00 Test Item Value Reference Range Interpretation Comments CO2 (test code = CO2) 25 24-32 [facility] HospitalEhmngexNKQLFIHWMTAW0137-72-81 10:11:00 Test Item Value Reference Range Interpretation Comments Chloride Lvl (test code = Chloride Lvl) 108 95-109 [facility] HospitalUcvqvvpASWBYEEUVJII7708-46-87 10:11:00 Test Item Value Reference Range Interpretation Comments Potassium Lvl (test code = Potassium 4.0 3.5-5.1 Lvl) [facility] HospitalMbcbxguQDHJLUYGCXUH9686-05-56 10:11:00 Test Item Value Reference Range Interpretation Comments Sodium Lvl (test code = Sodium Lvl) 140 135-145 [facility] HospitalKabtkkcIIIPOVEEFZWD1055-28-13 10:11:00 Test Item Value Reference Range Interpretation Comments BUN (test code = BUN) 11 7-22 [facility] HospitalXmuborkPLTNFGZWIQUD0257-77-37 10:11:00 Test Item Value Reference Range Interpretation Comments Glucose Lvl (test code = Glucose Lvl) 85 70-99 [facility] CenterWmbhqvrFIQGNIVLAF8624-44-81 10:11:00 Test Item Value Reference Range Interpretation Comments MCH (test code = MCH) 27.9 pg 27.0-31.0 [facility] CenterKjbwitlJQRINGJSLV1571-70-20 10:11:00 Test Item Value Reference Range Interpretation Comments MCHC (test code = MCHC) 33.5 32.0-36.0 [facility] CenterJbqnbahDHHYKHQMQB4819-92-07 10:11:00 Test Item Value Reference Range Interpretation Comments Hct (test code = Hct) 36.7 42.0-54.0 [facility] CenterJvfamxqNVJYFXHFFM3331-56-33 10:11:00 Test Item Value Reference Range Interpretation Comments MCV (test code = MCV) 83.1 80.0-94.0 [facility] CenterGqsfxbwJFQAWLECCL1859-15-22 10:11:00 Test Item Value Reference Range Interpretation Comments RBC (test code = RBC) 4.42 4.70-6.10 [facility] CenterCvqojtxIPZTWBSGRR4095-91-92 10:11:00 Test Item Value Reference Range Interpretation Comments Hgb (test code = Hgb) 12.3 14.0-18.0 [facility] CenterWfuazptKAGQQZEBPR3425-30-48 10:11:00 Test Item Value Reference Range Interpretation Comments WBC (test code = WBC) 8.5 3.7-10.4 [facility] CenterXdpqbfkSJZWWFXLEV3125-50-52 10:11:00 Test Item Value Reference Range Interpretation Comments MPV (test code = MPV) 9.5 7.4-10.4 [facility] CenterBnrcfivBMZAKFGNWT3656-75-92 10:11:00 Test Item Value Reference Range Interpretation Comments RDW (test code = RDW) 14.4 11.5-14.5 [facility] CenterRrdcmfjUPJLSXXYQO9818-30-03 10:11:00 Test Item Value Reference Range Interpretation Comments Platelet (test code = Platelet) 164 133-450 [facility] CenterGppakoqLZRYMJKXXJ7703-30-91 10:11:00 Test Item Value Reference Range Interpretation Comments Lymphocytes # (test code = Lymphocytes 1.2 1.0-5.5 #) [facility] CenterBnujiujNFVOIGCJAM7084-70-06 10:11:00 Test Item Value Reference Range Interpretation Comments Monocytes # (test code 0.6 See_Comment [Aut omated message] The = Monocytes #) system which generated this result tra nsmitted reference range : <=0.8. The reference r annemarie was not used to int erpret this result as normal/abnormal . [facility] CenterUzkaowjCSVHIGTSXI2616-55-82 10:11:00 Test Item Value Reference Range Interpretation Comments Eosinophils # (test code 0.2 See_Comment [A utomated message] The = Eosinophils #) system whic h generated this result tra nsmitted reference range : <=0.5. The reference r annemarie was not used to int erpret this result as normal/abnormal . [facility] CenterUegdsdfMBKRXTMMAJ0477-97-87 10:11:00 Test Item Value Reference Range Interpretation Comments Basophils # (test code 0.0 See_Comment [Aut omated message] The = Basophils #) system which generated this result tra nsmitted reference range : <=0.2. The reference r annemarie was not used to int erpret this result as normal/abnormal . [facility] KlebergZwapojnXSAANNKGAP6594-21-28 10:11:00 Test Item Value Reference Range Interpretation Comments Eosinophils (test code = 2.3 See_Comment [A utomated message] The Eosinophils) system which ge nerated this result tra nsmitted reference range : <=4.0. The reference r annemarie was not used to int erpret this result as normal/abnormal . [facility] HealthSmjtpvzJKYUJJTVBB1618-74-20 10:11:00 Test Item Value Reference Range Interpretation Comments Basophils (test code = 0.3 See_Comment [Aut omated message] The Basophils) system which ge nerated this result tra nsmitted reference range : <=1.0. The reference r annemarie was not used to int erpret this result as normal/abnormal . [facility] HealthLrozpbiMQUGLHLDJI6386-69-45 10:11:00 Test Item Value Reference Range Interpretation Comments Neutrophils # (test code = Neutrophils 6.5 1.5-8.1 #) [facility] KlebergUvifkyfDPHIZPWIJB5588-17-30 10:11:00 Test Item Value Reference Range Interpretation Comments Lymphocytes (test code = Lymphocytes) 14.5 20.0-40.0 [facility] RbuzotaCCMLFMDRSM4147-43-00 10:11:00 Test Item Value Reference Range Interpretation Comments Monocytes (test code = Monocytes) 6.7 2.0-12.0 [facility] MvfvvcnQVDGUNMLGH4881-42-76 10:11:00 Test Item Value Reference Range Interpretation Comments Segs (test code = Segs) 76.2 45.0-75.0 [facility]annPARATHYROID RJGRGGO6690-50-87 10:11:00 Test Item Value Reference Range Interpretation Comments Ca Norm WB (test code = Ca Norm WB) 1.13 1.05-1.25 [facility] LancasterannPARATHYROID MGKHALE3905-96-27 10:11:00 Test Item Value Reference Range Interpretation Comments Ca Ion WB (test code = Ca Ion WB) 1.17 1.05-1.25 [facility]ARD[facility] [id number] 10:11:00 Test Item Value Reference Range Interpretation Comments Troponin-I (test code no gt See_Comment [Auto mated message] The = Troponin-I) system which g enerated this result transmit abdelrahman reference range : <=0.40. The reference r annemarie was not used to interpr et this result as gurpreet l/abnormal. [facility]bergCHEM [id number] 10:11:00 Test Item Value Reference Range Interpretation Comments Phosphorus (test code = Phosphorus) 3.7 2.5-4.5 [facility]bergCHE[facility] [id number] 10:11:00 Test Item Value Reference Range Interpretation Comments Magnesium Lvl (test code = Magnesium 2.1 1.8-2.4 Lvl) [facility] HospitalZdtmtfeAMJOHIOGEJWS1063-06-51 10:11:00 Test Item Value Reference Range Interpretation Comments AGAP (test code = AGAP) 11.0 10.0-20.0 [facility] HospitalRclincrJBZNXRSTCTAW4060-97-76 10:11:00 Test Item Value Reference Range Interpretation Comments Creatinine Lvl (test code = Creatinine 0.90 0.50-1.40 Lvl) [facility] HospitalEhvxahnRWQKIEAFAHIP0534-93-80 10:11:00 Test Item Value Reference Range Interpretation Comments eGFR (test code = eGFR) [address] [facility] HospitalMwlccoyPUZQNBQXVDKX6130-85-63 10:11:00 Test Item Value Reference Range Interpretation Comments Calcium Lvl (test code = Calcium Lvl) 8.2 8.5-10.5 [facility] HospitalFatgeitEPJVTNJOAEGR4262-47-60 10:11:00 Test Item Value Reference Range Interpretation Comments CO2 (test code = CO2) 25 24-32 [facility] HospitalJlmkgkmIIPSIBSWBMZE7840-18-62 10:11:00 Test Item Value Reference Range Interpretation Comments Chloride Lvl (test code = Chloride Lvl) 108 95-109 [facility] HospitalJxpeqjdYXUVZBDMIJWJ4120-91-92 10:11:00 Test Item Value Reference Range Interpretation Comments Potassium Lvl (test code = Potassium 4.0 3.5-5.1 Lvl) [facility] HospitalSychnppBOANMKNGXTBI2591-69-00 10:11:00 Test Item Value Reference Range Interpretation Comments Sodium Lvl (test code = Sodium Lvl) 140 135-[address] [facility] HospitalNrmtmytVWOZEPCOMFHW4905-77-34 10:11:00 Test Item Value Reference Range Interpretation Comments BUN (test code = BUN) 11 7-22 [facility] HospitalEcmgyitRKQUKQIEDRAI1330-55-07 10:11:00 Test Item Value Reference Range Interpretation Comments Glucose Lvl (test code = Glucose Lvl) 85 70-99 [facility]VtcdfwvUCGTBHEZVS4445-80-68 10:11:00 Test Item Value Reference Range Interpretation Comments MCH (test code = MCH) 27.9 pg 27.0-31.0 [facility] CenterLkojynwONRZMQHMOT6635-75-80 10:11:00 Test Item Value Reference Range Interpretation Comments MCHC (test code = MCHC) 33.5 32.0-36.0 [facility] CenterNtxoufuYJDIMKTIKW5411-69-06 10:11:00 Test Item Value Reference Range Interpretation Comments Hct (test code = Hct) 36.7 42.0-54.0 [facility] CenterQhddthoUPZLJERCEY0884-38-21 10:11:00 Test Item Value Reference Range Interpretation Comments MCV (test code = MCV) 83.1 80.0-94.0 [facility] CenterBvuobgjQSFCUNXATT1790-20-86 10:11:00 Test Item Value Reference Range Interpretation Comments RBC (test code = RBC) 4.42 4.70-6.10 [facility] CenterVuagxdqDBIEHZYHST3275-66-50 10:11:00 Test Item Value Reference Range Interpretation Comments Hgb (test code = Hgb) 12.3 14.0-18.0 [facility] CenterLrfwosiERKAHYPWAU9135-82-27 10:11:00 Test Item Value Reference Range Interpretation Comments WBC (test code = WBC) 8.5 3.7-10.4 [facility] CenterLhruatxBTNSOXPNBE9572-78-69 10:11:00 Test Item Value Reference Range Interpretation Comments MPV (test code = MPV) 9.5 7.4-10.4 [facility] CenterHiwwzjdQKMXWJITBT8366-18-63 10:11:00 Test Item Value Reference Range Interpretation Comments RDW (test code = RDW) 14.4 11.5-14.5 [facility] CenterOfhvjbiCUARKAGHCH4096-94-66 10:11:00 Test Item Value Reference Range Interpretation Comments Platelet (test code = Platelet) 164 133-450 [facility] CenterEjvdmlsUWEUZYKEUN8901-47-57 10:11:00 Test Item Value Reference Range Interpretation Comments Lymphocytes # (test code = Lymphocytes 1.2 1.0-5.5 #) [facility] CenterDjluhnvGGWIHYRKZI6586-33-32 10:11:00 Test Item Value Reference Range Interpretation Comments Monocytes # (test code 0.6 See_Comment [Aut omated message] The = Monocytes #) system which generated this result tra nsmitted reference range : <=0.8. The reference r annemarie was not used to int erpret this result as normal/abnormal . [facility] CenterSoksrzrBSFFMQGNNZ4808-05-65 10:11:00 Test Item Value Reference Range Interpretation Comments Eosinophils # (test code 0.2 See_Comment [A utomated message] The = Eosinophils #) system whic h generated this result tra nsmitted reference range : <=0.5. The reference r annemarie was not used to int erpret this result as normal/abnormal . [facility] CenterDeolbgdQHMJVXHBEH8409-81-91 10:11:00 Test Item Value Reference Range Interpretation Comments Basophils # (test code 0.0 See_Comment [Aut omated message] The = Basophils #) system which generated this result tra nsmitted reference range : <=0.2. The reference r annemarie was not used to int erpret this result as normal/abnormal . [facility] CenterJmizatzJFSGGULDMG4498-52-66 10:11:00 Test Item Value Reference Range Interpretation Comments Eosinophils (test code = 2.3 See_Comment [A utomated message] The Eosinophils) system which ge nerated this result tra nsmitted reference range : <=4.0. The reference r annemarie was not used to int erpret this result as normal/abnormal . [facility] CenterUirrpbiVXWLGWHDRP1816-01-19 10:11:00 Test Item Value Reference Range Interpretation Comments Basophils (test code = 0.3 See_Comment [Aut omated message] The Basophils) system which ge nerated this result tra nsmitted reference range : <=1.0. The reference r annemarie was not used to int erpret this result as normal/abnormal . [facility] CenterSypcfjcICGEBZDLLR2403-81-29 10:11:00 Test Item Value Reference Range Interpretation Comments Neutrophils # (test code = Neutrophils 6.5 1.5-8.1 #) [facility] CenterUnnmdshYDGNJDOBJP8450-76-32 10:11:00 Test Item Value Reference Range Interpretation Comments Lymphocytes (test code = Lymphocytes) 14.5 20.0-40.0 [facility] CenterLfpqzciROSTPPSEKG4220-05-81 10:11:00 Test Item Value Reference Range Interpretation Comments Monocytes (test code = Monocytes) 6.7 2.0-12.0 [facility] CenterMmhfqvkJZUADDOJDX5297-61-50 10:11:00 Test Item Value Reference Range Interpretation Comments Segs (test code = Segs) 76.2 45.0-75.0 [facility] LancasterannPARATHYROID UHCNPZD5398-87-72 10:11:00 Test Item Value Reference Range Interpretation Comments Ca Norm WB (test code = Ca Norm WB) 1.13 1.05-1.25 [facility] HermannPARATHYROID IIZUVEP0682-42-12 10:11:00 Test Item Value Reference Range Interpretation Comments Ca Ion WB (test code = Ca Ion WB) 1.17 1.05-1.25 [facility] LancasterannCARDIAC BZTGOFL4155-47-67 10:11:00 Test Item Value Reference Range Interpretation Comments Troponin-I (test code no gt See_Comment [Auto mated message] The = Troponin-I) system which g enerated this result transmit abdelrahman reference range : <=0.40. The reference r annemarie was not used to interpr et this result as gurpreet l/abnormal. [facility] LancasterData ImpactCHEM LMIPN1773-86-18 10:11:00 Test Item Value Reference Range Interpretation Comments Phosphorus (test code = Phosphorus) 3.7 2.5-4.5 [facility] LancasterData ImpactCHEM [id number] 10:11:00 Test Item Value Reference Range Interpretation Comments Magnesium Lvl (test code = Magnesium 2.1 1.8-2.4 Lvl) [facility] LancasterDniizeuRMCZZRZFCKNV7464-58-06 10:11:00 Test Item Value Reference Range Interpretation Comments AGAP (test code = AGAP) 11.0 10.0-20.0 [facility] LancasterJduznuqBVBPVYHZZNZC5884-95-72 10:11:00 Test Item Value Reference Range Interpretation Comments Creatinine Lvl (test code = Creatinine 0.90 0.50-1.40 Lvl) [facility] LancasterZjsnxwyNFJZZHERIRMT5466-03-90 10:11:00 Test Item Value Reference Range Interpretation Comments eGFR (test code = eGFR) 114 [facility] LancasterXqgnltdIUSLLJWMOYIP8866-55-97 10:11:00 Test Item Value Reference Range Interpretation Comments Calcium Lvl (test code = Calcium Lvl) 8.2 8.5-10.5 [facility] LancasterQxpwuxgZLFFDIKJYXOD4823-31-85 10:11:00 Test Item Value Reference Range Interpretation Comments CO2 (test code = CO2) 25 24-32 [facility] LancasterUvajbvsLJKLDSMKLCYA4208-90-29 10:11:00 Test Item Value Reference Range Interpretation Comments Chloride Lvl (test code = Chloride Lvl) 108 95-109 [facility] HospitalWfiywhwOOTWNIOIFUYV6868-34-49 10:11:00 Test Item Value Reference Range Interpretation Comments Potassium Lvl (test code = Potassium 4.0 3.5-5.1 Lvl) [facility] HospitalVmjbtziWBIGQHLTLFRV5245-93-09 10:11:00 Test Item Value Reference Range Interpretation Comments Sodium Lvl (test code = Sodium Lvl) 140 135-[address] [facility] HospitalWertyshZMHIMMKEZQZX7424-90-11 10:11:00 Test Item Value Reference Range Interpretation Comments BUN (test code = BUN) 11 7-22 [facility] HospitalNjfqglsSANMSCXYGCHF4335-93-97 10:11:00 Test Item Value Reference Range Interpretation Comments Glucose Lvl (test code = Glucose Lvl) 85 70-99 [facility] CenterUemielmXVXVIPHOTI4989-49-06 10:11:00 Test Item Value Reference Range Interpretation Comments MCH (test code = MCH) 27.9 pg 27.0-31.0 [facility] CenterStvllksKULRNPUHLR9750-15-23 10:11:00 Test Item Value Reference Range Interpretation Comments MCHC (test code = MCHC) 33.5 32.0-36.0 [facility] CenterOxqechwOHKUITEFWO5622-33-21 10:11:00 Test Item Value Reference Range Interpretation Comments Hct (test code = Hct) 36.7 42.0-54.0 [facility] CenterSsdcmaoDJAPANKGEM1612-38-93 10:11:00 Test Item Value Reference Range Interpretation Comments MCV (test code = MCV) 83.1 80.0-94.0 [facility] CenterNxjoyeiQUNWLFYAFH0885-82-88 10:11:00 Test Item Value Reference Range Interpretation Comments RBC (test code = RBC) 4.42 4.70-6.10 [facility] CenterCjsijigHUESOSLLFO8364-66-89 10:11:00 Test Item Value Reference Range Interpretation Comments Hgb (test code = Hgb) 12.3 14.0-18.0 [facility] CenterWajqymqHNHKNBNFIY6050-86-03 10:11:00 Test Item Value Reference Range Interpretation Comments WBC (test code = WBC) 8.5 3.7-10.4 [facility] CenterAgepiiuWDKBFIIFNL8120-63-85 10:11:00 Test Item Value Reference Range Interpretation Comments MPV (test code = MPV) 9.5 7.4-10.4 [facility] CenterRhrlqppGIJSXGAHDR5488-35-30 10:11:00 Test Item Value Reference Range Interpretation Comments RDW (test code = RDW) 14.4 11.5-14.5 [facility] CenterUqbqjczOCRRDYUVZE8826-61-42 10:11:00 Test Item Value Reference Range Interpretation Comments Platelet (test code = Platelet) 164 133-450 [facility] CenterLvqgxyaVPOIIICDUJ1973-91-68 10:11:00 Test Item Value Reference Range Interpretation Comments Lymphocytes # (test code = Lymphocytes 1.2 1.0-5.5 #) [facility] CenterPampfviXUBCMIAQGS4947-79-47 10:11:00 Test Item Value Reference Range Interpretation Comments Monocytes # (test code 0.6 See_Comment [Aut omated message] The = Monocytes #) system which generated this result tra nsmitted reference range : <=0.8. The reference r annemarie was not used to int erpret this result as normal/abnormal . [facility] CenterBuweykfNYHHGXIFQQ1264-31-39 10:11:00 Test Item Value Reference Range Interpretation Comments Eosinophils # (test code 0.2 See_Comment [A utomated message] The = Eosinophils #) system whic h generated this result tra nsmitted reference range : <=0.5. The reference r annemarie was not used to int erpret this result as normal/abnormal . [facility] CenterHcbdphaUAPSMLNGZT7605-03-57 10:11:00 Test Item Value Reference Range Interpretation Comments Basophils # (test code 0.0 See_Comment [Aut omated message] The = Basophils #) system which generated this result tra nsmitted reference range : <=0.2. The reference r annemarie was not used to int erpret this result as normal/abnormal . [facility] CenterXagtmpxZUBBUEYCAV3122-83-85 10:11:00 Test Item Value Reference Range Interpretation Comments Eosinophils (test code = 2.3 See_Comment [A utomated message] The Eosinophils) system which ge nerated this result tra nsmitted reference range : <=4.0. The reference r annemarie was not used to int erpret this result as normal/abnormal . [facility] CenterJkcqfvjUMWYDJDKPR8924-25-79 10:11:00 Test Item Value Reference Range Interpretation Comments Basophils (test code = 0.3 See_Comment [Aut omated message] The Basophils) system which ge nerated this result tra nsmitted reference range : <=1.0. The reference r annemarie was not used to int erpret this result as normal/abnormal . [facility]bergTsezwcnFDAXODVYSG4798-11-96 10:11:00 Test Item Value Reference Range Interpretation Comments Neutrophils # (test code = Neutrophils 6.5 1.5-8.1 #) [facility] LancasterLewqiokWAXZPIUIST2367-00-33 10:11:00 Test Item Value Reference Range Interpretation Comments Lymphocytes (test code = Lymphocytes) 14.5 20.0-40.0 [facility] LancasterHkkwrokHQPZUQUNQM9507-72-85 10:11:00 Test Item Value Reference Range Interpretation Comments Monocytes (test code = Monocytes) 6.7 2.0-12.0 [facility] HealthTeuepisMNHDZZLMFC8276-16-14 10:11:00 Test Item Value Reference Range Interpretation Comments Segs (test code = Segs) 76.2 45.0-75.0 [facility]bergPARATHYROID YHMOHBW9945-37-87 10:11:00 Test Item Value Reference Range Interpretation Comments Ca Norm WB (test code = Ca Norm WB) 1.13 1.05-1.25 [facility] LancasterannPARATHYROID TEFPUUR0790-66-43 10:11:00 Test Item Value Reference Range Interpretation Comments Ca Ion WB (test code = Ca Ion WB) 1.17 1.05-1.25 [facility]bergCARDIAC RGIRJTU0298-84-38 10:11:00 Test Item Value Reference Range Interpretation Comments Troponin-I (test code no gt See_Comment [Auto mated message] The = Troponin-I) system which g enerated this result transmit abdelrahman reference range : <=0.40. The reference r annemarie was not used to interpr et this result as gurpreet l/abnormal. [facility]bergCHEM XMDMJ4073-04-37 10:11:00 Test Item Value Reference Range Interpretation Comments Phosphorus (test code = Phosphorus) 3.7 2.5-4.5 [facility] LancasterannCHEM SSNSS2591-18-16 10:11:00 Test Item Value Reference Range Interpretation Comments Magnesium Lvl (test code = Magnesium 2.1 1.8-2.4 Lvl) [facility] LancasterHeiewkhXTLTIJBAHLGZ9177-20-79 10:11:00 Test Item Value Reference Range Interpretation Comments AGAP (test code = AGAP) 11.0 10.0-20.0 [facility] HospitalHkkrdivLFYDLUGCAMPT6686-22-68 10:11:00 Test Item Value Reference Range Interpretation Comments Creatinine Lvl (test code = Creatinine 0.90 0.50-1.40 Lvl) [facility] HospitalIouanhkCMLFEKJRWTVS7181-69-14 10:11:00 Test Item Value Reference Range Interpretation Comments eGFR (test code = eGFR) [address] [facility] HospitalCejkrmzNGPKQEKUIOBU9580-44-61 10:11:00 Test Item Value Reference Range Interpretation Comments Calcium Lvl (test code = Calcium Lvl) 8.2 8.5-10.5 [facility] HospitalWwtqqcwXYDNLDBLEFSL4236-14-03 10:11:00 Test Item Value Reference Range Interpretation Comments CO2 (test code = CO2) 25 24-32 [facility] HospitalLxsjiixPOPSSFDHYVLZ0596-86-06 10:11:00 Test Item Value Reference Range Interpretation Comments Chloride Lvl (test code = Chloride Lvl) 108 95-109 [facility] HospitalEgyfsspGHQIWKSYRTLD6474-62-96 10:11:00 Test Item Value Reference Range Interpretation Comments Potassium Lvl (test code = Potassium 4.0 3.5-5.1 Lvl) [facility] HospitalVezfdhjNILWIDLWHDHH7116-23-52 10:11:00 Test Item Value Reference Range Interpretation Comments Sodium Lvl (test code = Sodium Lvl) 140 135-[address] [facility] HospitalAtlpbxaMGSYZJAGDOJT0727-17-29 10:11:00 Test Item Value Reference Range Interpretation Comments BUN (test code = BUN) 11 7-22 [facility] HospitalCxxfcgsEXLGVDXOMQQN6937-17-57 10:11:00 Test Item Value Reference Range Interpretation Comments Glucose Lvl (test code = Glucose Lvl) 85 70-99 [facility] CenterYwuuqqlGUZCECVYPC5113-42-68 10:11:00 Test Item Value Reference Range Interpretation Comments MCH (test code = MCH) 27.9 pg 27.0-31.0 [facility] CenterYirrzlsVLUPVZVKFQ1551-68-85 10:11:00 Test Item Value Reference Range Interpretation Comments MCHC (test code = MCHC) 33.5 32.0-36.0 [facility] CenterVsjjdzlEXMZDAWJNX8332-10-74 10:11:00 Test Item Value Reference Range Interpretation Comments Hct (test code = Hct) 36.7 42.0-54.0 [facility] CenterClthguvHKMIUFSKSU2447-53-95 10:11:00 Test Item Value Reference Range Interpretation Comments MCV (test code = MCV) 83.1 80.0-94.0 [facility] CenterYkcnvodVQCJKBPUEM3804-91-04 10:11:00 Test Item Value Reference Range Interpretation Comments RBC (test code = RBC) 4.42 4.70-6.10 [facility] CenterDydbcxpPOVXYYZPIH4541-12-23 10:11:00 Test Item Value Reference Range Interpretation Comments Hgb (test code = Hgb) 12.3 14.0-18.0 [facility] CenterQvrwqleELXDJOTEKH5607-98-03 10:11:00 Test Item Value Reference Range Interpretation Comments WBC (test code = WBC) 8.5 3.7-10.4 [facility] CenterJtemvibBJSAIEBLRC4208-97-83 10:11:00 Test Item Value Reference Range Interpretation Comments MPV (test code = MPV) 9.5 7.4-10.4 [facility] CenterOuxpmhjHKVVTWWMAK2023-48-49 10:11:00 Test Item Value Reference Range Interpretation Comments RDW (test code = RDW) 14.4 11.5-14.5 [facility] CenterEmruevdGHCVXKNUFU0142-11-10 10:11:00 Test Item Value Reference Range Interpretation Comments Platelet (test code = Platelet) 164 133-450 [facility] CenterUbfcllnPRBYMJNHCV2321-63-81 10:11:00 Test Item Value Reference Range Interpretation Comments Lymphocytes # (test code = Lymphocytes 1.2 1.0-5.5 #) [facility] CenterLxtuqgqWHQXDLJNFG1466-02-22 10:11:00 Test Item Value Reference Range Interpretation Comments Monocytes # (test code 0.6 See_Comment [Aut omated message] The = Monocytes #) system which generated this result tra nsmitted reference range : <=0.8. The reference r annemarie was not used to int erpret this result as normal/abnormal . [facility] CenterQnrnwonCVVSGTYECJ1403-81-00 10:11:00 Test Item Value Reference Range Interpretation Comments Eosinophils # (test code 0.2 See_Comment [A utomated message] The = Eosinophils #) system whic h generated this result tra nsmitted reference range : <=0.5. The reference r annemarie was not used to int erpret this result as normal/abnormal . [facility] CenterTixfuenYTYFDAWMOV4303-11-40 10:11:00 Test Item Value Reference Range Interpretation Comments Basophils # (test code 0.0 See_Comment [Aut omated message] The = Basophils #) system which generated this result tra nsmitted reference range : <=0.2. The reference r annemarie was not used to int erpret this result as normal/abnormal . [facility] CenterDokuiemNJPQPZNGKH3745-44-82 10:11:00 Test Item Value Reference Range Interpretation Comments Eosinophils (test code = 2.3 See_Comment [A utomated message] The Eosinophils) system which ge nerated this result tra nsmitted reference range : <=4.0. The reference r annemarie was not used to int erpret this result as normal/abnormal . [facility] CenterRkxhypwATIBNXCSVT3332-07-64 10:11:00 Test Item Value Reference Range Interpretation Comments Basophils (test code = 0.3 See_Comment [Aut omated message] The Basophils) system which ge nerated this result tra nsmitted reference range : <=1.0. The reference r annemarie was not used to int erpret this result as normal/abnormal . [facility] CenterAhppfzpAWZBRVGZMF8699-89-74 10:11:00 Test Item Value Reference Range Interpretation Comments Neutrophils # (test code = Neutrophils 6.5 1.5-8.1 #) [facility] HealthQkdqgfpBWXZTKVRWP4431-58-00 10:11:00 Test Item Value Reference Range Interpretation Comments Lymphocytes (test code = Lymphocytes) 14.5 20.0-40.0 [facility] HealthIqgkynbDRARJMGERM9369-58-03 10:11:00 Test Item Value Reference Range Interpretation Comments Monocytes (test code = Monocytes) 6.7 2.0-12.0 [facility] CenterRnguuuvMBCJVAXJRJ2997-47-53 10:11:00 Test Item Value Reference Range Interpretation Comments Segs (test code = Segs) 76.2 45.0-75.0 [facility]bergPARATHYROID ROQJIDX8335-88-40 10:11:00 Test Item Value Reference Range Interpretation Comments Ca Norm WB (test code = Ca Norm WB) 1.13 1.05-1.25 [facility] IANEWJB4741-86-04 10:11:00 Test Item Value Reference Range Interpretation Comments Ca Ion WB (test code = Ca Ion WB) 1.17 1.05-1.25 [facility]bergCARDIAC FBKLSGE8505-74-43 10:11:00 Test Item Value Reference Range Interpretation Comments Troponin-I (test code no gt See_Comment [Auto mated message] The = Troponin-I) system which g enerated this result transmit abdelrahman reference range : <=0.40. The reference r annemarie was not used to interpr et this result as gurpreet l/abnormal. [facility] KlebergValtech Cardio YODOO6672-31-56 10:11:00 Test Item Value Reference Range Interpretation Comments Phosphorus (test code = Phosphorus) 3.7 2.5-4.5 [facility]bergCHEM JDQQC5818-38-56 10:11:00 Test Item Value Reference Range Interpretation Comments Magnesium Lvl (test code = Magnesium 2.1 1.8-2.4 Lvl) [facility] HospitalUfcbwcvHFKEGHJVHOZY6547-29-86 10:11:00 Test Item Value Reference Range Interpretation Comments AGAP (test code = AGAP) 11.0 10.0-20.0 [facility] HospitalMtpfhyuGEKMREQHTVMN0096-93-51 10:11:00 Test Item Value Reference Range Interpretation Comments Creatinine Lvl (test code = Creatinine 0.90 0.50-1.40 Lvl) [facility] HospitalRetnsvdHONJYBQFMVGV9856-82-39 10:11:00 Test Item Value Reference Range Interpretation Comments eGFR (test code = eGFR) [address] [facility] HospitalBkwbgpnXWMDEXLTDZHZ6474-35-97 10:11:00 Test Item Value Reference Range Interpretation Comments Calcium Lvl (test code = Calcium Lvl) 8.2 8.5-10.[address] [facility] HospitalLuyjoxsVMESMAUKOWDG3488-71-17 10:11:00 Test Item Value Reference Range Interpretation Comments CO2 (test code = CO2) 25 24-32 [facility] [facility]gtdgzcGCPDFWATJHPQ7439-01-69 10:11:00 Test Item Value Reference Range Interpretation Comments Chloride Lvl (test code = Chloride Lvl) 108 95-109 [facility] HospitalJrgwjrmYQTSTPZNMXKH6495-12-86 10:11:00 Test Item Value Reference Range Interpretation Comments Potassium Lvl (test code = Potassium 4.0 3.5-5.1 Lvl) [facility] HospitalUehrzdhFKCARLBVPAKX7560-14-59 10:11:00 Test Item Value Reference Range Interpretation Comments Sodium Lvl (test code = Sodium Lvl) 140 135-145 [facility] HospitalWqugzcyDHUKABFRLTFL4875-69-53 10:11:00 Test Item Value Reference Range Interpretation Comments BUN (test code = BUN) 11 7-22 [facility] HospitalLyhtagzDGOKLTBPGFNM1586-19-17 10:11:00 Test Item Value Reference Range Interpretation Comments Glucose Lvl (test code = Glucose Lvl) 85 70-99 [facility]GtwyzsqAXUPGRUOUA9679-96-00 10:11:00 Test Item Value Reference Range Interpretation Comments MCH (test code = MCH) 27.9 pg 27.0-31.0 [facility] CenterKrbdmjtMSKGJVXDVB6816-73-09 10:11:00 Test Item Value Reference Range Interpretation Comments MCHC (test code = MCHC) 33.5 32.0-36.0 [facility] CenterZkoxihhJUHSUUPOJL1598-43-83 10:11:00 Test Item Value Reference Range Interpretation Comments Hct (test code = Hct) 36.7 42.0-54.0 [facility] CenterHnntwhoDOZWAOTFPD7611-75-61 10:11:00 Test Item Value Reference Range Interpretation Comments MCV (test code = MCV) 83.1 80.0-94.0 [facility] CenterKgilfayYSJMCBELJM8963-28-70 10:11:00 Test Item Value Reference Range Interpretation Comments RBC (test code = RBC) 4.42 4.70-6.10 [facility] CenterNhqvvezLFRNDXWUEI0226-29-48 10:11:00 Test Item Value Reference Range Interpretation Comments Hgb (test code = Hgb) 12.3 14.0-18.0 [facility] CenterGagfoapKTUBLNMPCG1448-51-70 10:11:00 Test Item Value Reference Range Interpretation Comments WBC (test code = WBC) 8.5 3.7-10.4 [facility] CenterDrgiluqDKYIEWPSBI7725-91-98 10:11:00 Test Item Value Reference Range Interpretation Comments MPV (test code = MPV) 9.5 7.4-10.4 [facility] CenterMmauwwgSIDAUDPTSD4222-55-25 10:11:00 Test Item Value Reference Range Interpretation Comments RDW (test code = RDW) 14.4 11.5-14.5 [facility] CenterAncjehtPKPJHOFTYP1741-95-74 10:11:00 Test Item Value Reference Range Interpretation Comments Platelet (test code = Platelet) 164 133-450 [facility] CenterXcmlvfhQDSOMTQGXH4543-33-34 10:11:00 Test Item Value Reference Range Interpretation Comments Lymphocytes # (test code = Lymphocytes 1.2 1.0-5.5 #) [facility] CenterHgbmfscFWSGIZDROM5576-30-64 10:11:00 Test Item Value Reference Range Interpretation Comments Monocytes # (test code 0.6 See_Comment [Aut omated message] The = Monocytes #) system which generated this result tra nsmitted reference range : <=0.8. The reference r annemarie was not used to int erpret this result as normal/abnormal . [facility] CenterFtxntkySEMZCQRIFF8728-65-23 10:11:00 Test Item Value Reference Range Interpretation Comments Eosinophils # (test code 0.2 See_Comment [A utomated message] The = Eosinophils #) system wh h generated this result tra nsmitted reference range : <=0.5. The reference r annemarie was not used to int erpret this result as normal/abnormal . [facility] CenterCiwcofbTPRQXEUTUG3183-56-03 10:11:00 Test Item Value Reference Range Interpretation Comments Basophils # (test code 0.0 See_Comment [Aut omated message] The = Basophils #) system which generated this result tra nsmitted reference range : <=0.2. The reference r nanemarie was not used to int erpret this result as normal/abnormal . [facility] CenterVqcgzubYRJMMJUWJV7361-22-44 10:11:00 Test Item Value Reference Range Interpretation Comments Eosinophils (test code = 2.3 See_Comment [A utomated message] The Eosinophils) system which ge nerated this result tra nsmitted reference range : <=4.0. The reference r annemarie was not used to int erpret this result as normal/abnormal . [facility] CenterRqdfduhXGZZEYKNCQ6970-02-62 10:11:00 Test Item Value Reference Range Interpretation Comments Basophils (test code = 0.3 See_Comment [Aut omated message] The Basophils) system which ge nerated this result tra nsmitted reference range : <=1.0. The reference r annemarie was not used to int erpret this result as normal/abnormal . [facility] CenterOljobulHXNRDVHPOA8518-99-16 10:11:00 Test Item Value Reference Range Interpretation Comments Neutrophils # (test code = Neutrophils 6.5 1.5-8.1 #) [facility] CenterIwajtcoPXIIHDUDVA1951-24-04 10:11:00 Test Item Value Reference Range Interpretation Comments Lymphocytes (test code = Lymphocytes) 14.5 20.0-40.0 [facility] CenterBnxgtyxTMEOSYULXO8128-09-86 10:11:00 Test Item Value Reference Range Interpretation Comments Monocytes (test code = Monocytes) 6.7 2.0-12.0 [facility] LancasterWvegaaoFHSKLNSDSR2405-96-87 10:11:00 Test Item Value Reference Range Interpretation Comments Segs (test code = Segs) 76.2 45.0-75.0 [facility] LancasterannPARATHYROID NJNXEZG3128-04-79 10:11:00 Test Item Value Reference Range Interpretation Comments Ca Norm WB (test code = Ca Norm WB) 1.13 1.05-1.25 [facility] HermannPARATHYROID HRHBHXF2663-80-30 10:11:00 Test Item Value Reference Range Interpretation Comments Ca Ion WB (test code = Ca Ion WB) 1.17 1.05-1.25 [facility] LancasterannCARDIAC JMYWTNG4837-06-86 10:11:00 Test Item Value Reference Range Interpretation Comments Troponin-I (test code no gt See_Comment [Auto mated message] The = Troponin-I) system which g enerated this result transmit abdelrahman reference range : <=0.40. The reference r annemarie was not used to interpr et this result as gurpreet l/abnormal. [facility] LancasterannCHEM GYYXZ2940-49-41 10:11:00 Test Item Value Reference Range Interpretation Comments Phosphorus (test code = Phosphorus) 3.7 2.5-4.5 [facility] LancasterannCHEM OGRNJ2027-86-75 10:11:00 Test Item Value Reference Range Interpretation Comments Magnesium Lvl (test code = Magnesium 2.1 1.8-2.4 Lvl) [facility] LancasterGrkvkpcSTJLECEBWDJV9378-97-50 10:11:00 Test Item Value Reference Range Interpretation Comments AGAP (test code = AGAP) 11.0 10.0-20.0 [facility] LancasterOojoquwJHLBXRTKMNYV9445-31-27 10:11:00 Test Item Value Reference Range Interpretation Comments Creatinine Lvl (test code = Creatinine 0.90 0.50-1.40 Lvl) [facility] LancasterKcoglajNYMISQPQKHIN0524-79-83 10:11:00 Test Item Value Reference Range Interpretation Comments eGFR (test code = eGFR) 114 [facility] LancasterKfnebjvCUWKKJHYZIFV7498-87-90 10:11:00 Test Item Value Reference Range Interpretation Comments Calcium Lvl (test code = Calcium Lvl) 8.2 8.5-10.5 [facility] LancasterMmxefzuAZYWXGDJWRSX9073-51-73 10:11:00 Test Item Value Reference Range Interpretation Comments CO2 (test code = CO2) 25 24-32 [facility] HospitalHvikmyjYECJQNVNYMJR1039-48-44 10:11:00 Test Item Value Reference Range Interpretation Comments Chloride Lvl (test code = Chloride Lvl) 108 95-109 [facility] HospitalJydecsgAYHTXKNKOADZ0990-97-76 10:11:00 Test Item Value Reference Range Interpretation Comments Potassium Lvl (test code = Potassium 4.0 3.5-5.1 Lvl) [facility] HospitalRhyjbrnICTDNSJQHIUW8295-64-33 10:11:00 Test Item Value Reference Range Interpretation Comments Sodium Lvl (test code = Sodium Lvl) 140 135-145 [facility] HospitalFylivrsKOKGLYQNITTZ3612-33-58 10:11:00 Test Item Value Reference Range Interpretation Comments BUN (test code = BUN) 11 7-22 [facility] HospitalJojxtgbEFWCILDJOSSP5706-39-98 10:11:00 Test Item Value Reference Range Interpretation Comments Glucose Lvl (test code = Glucose Lvl) 85 70-99 [facility] CenterOzinsodQXLSNUEJTH2378-64-16 10:11:00 Test Item Value Reference Range Interpretation Comments MCH (test code = MCH) 27.9 pg 27.0-31.0 [facility] CenterVpxidmuHUHHVPCDVO6392-30-28 10:11:00 Test Item Value Reference Range Interpretation Comments MCHC (test code = MCHC) 33.5 32.0-36.0 [facility] CenterZwsqeedXFAGCCBSUW0717-30-45 10:11:00 Test Item Value Reference Range Interpretation Comments Hct (test code = Hct) 36.7 42.0-54.0 [facility] CenterOiaxisuPHSTCENNBG4228-73-41 10:11:00 Test Item Value Reference Range Interpretation Comments MCV (test code = MCV) 83.1 80.0-94.0 [facility] CenterNkjaunbDDBBRTSUUV6700-70-30 10:11:00 Test Item Value Reference Range Interpretation Comments RBC (test code = RBC) 4.42 4.70-6.10 [facility] CenterLhsaaetNUSCQAFUPX8774-63-15 10:11:00 Test Item Value Reference Range Interpretation Comments Hgb (test code = Hgb) 12.3 14.0-18.0 [facility] CenterBjgvfdeRDNQKTLHCS5114-93-28 10:11:00 Test Item Value Reference Range Interpretation Comments WBC (test code = WBC) 8.5 3.7-10.4 [facility] CenterOxgibhqVFYRVMMEON6586-73-75 10:11:00 Test Item Value Reference Range Interpretation Comments MPV (test code = MPV) 9.5 7.4-10.4 [facility] CenterZjqkxshXZLWXBQOMX7152-36-97 10:11:00 Test Item Value Reference Range Interpretation Comments RDW (test code = RDW) 14.4 11.5-14.5 [facility] CenterMfvliagOVLJWYCCPB7030-55-15 10:11:00 Test Item Value Reference Range Interpretation Comments Platelet (test code = Platelet) 164 133-450 [facility] CenterTmbvwgsWIBZQHKJOP5119-31-39 10:11:00 Test Item Value Reference Range Interpretation Comments Lymphocytes # (test code = Lymphocytes 1.2 1.0-5.5 #) [facility] CenterMdxyrzdPLGQOVRYZC1535-83-81 10:11:00 Test Item Value Reference Range Interpretation Comments Monocytes # (test code 0.6 See_Comment [Aut omated message] The = Monocytes #) system which generated this result tra nsmitted reference range : <=0.8. The reference r annemarie was not used to int erpret this result as normal/abnormal . [facility] CenterJpobjubIBSOWBMQTJ2579-33-26 10:11:00 Test Item Value Reference Range Interpretation Comments Eosinophils # (test code 0.2 See_Comment [A utomated message] The = Eosinophils #) system whic h generated this result tra nsmitted reference range : <=0.5. The reference r annemarie was not used to int erpret this result as normal/abnormal . [facility] CenterXqdflfeSUBMVTNILQ7801-77-66 10:11:00 Test Item Value Reference Range Interpretation Comments Basophils # (test code 0.0 See_Comment [Aut omated message] The = Basophils #) system which generated this result tra nsmitted reference range : <=0.2. The reference r annemarie was not used to int erpret this result as normal/abnormal . [facility] CenterOifyujxYUSFEJYBHK9140-06-45 10:11:00 Test Item Value Reference Range Interpretation Comments Eosinophils (test code = 2.3 See_Comment [A utomated message] The Eosinophils) system which ge nerated this result tra nsmitted reference range : <=4.0. The reference r annemarie was not used to int erpret this result as normal/abnormal . [facility] CenterNxmhpfxHRBRXDGOCF3358-34-12 10:11:00 Test Item Value Reference Range Interpretation Comments Basophils (test code = 0.3 See_Comment [Aut omated message] The Basophils) system which ge nerated this result tra nsmitted reference range : <=1.0. The reference r annemarie was not used to int erpret this result as normal/abnormal . [facility]QkwjdpoLHTOXJKJQL2331-08-30 10:11:00 Test Item Value Reference Range Interpretation Comments Neutrophils # (test code = Neutrophils 6.5 1.5-8.1 #) [facility]bergWynbjctCHSKKVRFOV9164-15-32 10:11:00 Test Item Value Reference Range Interpretation Comments Lymphocytes (test code = Lymphocytes) 14.5 20.0-40.0 [facility] KlebergXulsdxxYWNKPZVFYF8614-73-79 10:11:00 Test Item Value Reference Range Interpretation Comments Monocytes (test code = Monocytes) 6.7 2.0-12.0 [facility]GnlxkxmOEQZXUGMTK5893-17-11 10:11:00 Test Item Value Reference Range Interpretation Comments Segs (test code = Segs) 76.2 45.0-75.0 [facility] KlebergPARATHYROID DWKDYWS4645-67-89 10:11:00 Test Item Value Reference Range Interpretation Comments Ca Norm WB (test code = Ca Norm WB) 1.13 1.05-1.25 [facility] LancasterannPARATHYROID QIGUCMO5989-67-26 10:11:00 Test Item Value Reference Range Interpretation Comments Ca Ion WB (test code = Ca Ion WB) 1.17 1.05-1.25 [facility]bergCARDIAC AVYBOQM7930-56-32 10:11:00 Test Item Value Reference Range Interpretation Comments Troponin-I (test code no gt See_Comment [Auto mated message] The = Troponin-I) system which g enerated this result transmit abdelrahman reference range : <=0.40. The reference r annemarie was not used to interpr et this result as gurpreet l/abnormal. [facility]bergCHEM XWILF1363-63-37 10:11:00 Test Item Value Reference Range Interpretation Comments Phosphorus (test code = Phosphorus) 3.7 2.5-4.5 [facility]bergCHE[facility] YJDHZ5294-44-04 10:11:00 Test Item Value Reference Range Interpretation Comments Magnesium Lvl (test code = Magnesium 2.1 1.8-2.4 Lvl) [facility] LancasterVyjcfuxRYNJRZCMKUKC8851-92-05 10:11:00 Test Item Value Reference Range Interpretation Comments AGAP (test code = AGAP) 11.0 10.0-20.0 [facility] HospitalJqbfvbwNRSPOGCJLMEE2779-55-24 10:11:00 Test Item Value Reference Range Interpretation Comments Creatinine Lvl (test code = Creatinine 0.90 0.50-1.40 Lvl) [facility] HospitalDsmtqeuKVCXDIALFCWB3968-18-21 10:11:00 Test Item Value Reference Range Interpretation Comments eGFR (test code = eGFR) [address] [facility] HospitalPsxqtpxUUGDODLQRVJG3220-98-88 10:11:00 Test Item Value Reference Range Interpretation Comments Calcium Lvl (test code = Calcium Lvl) 8.2 8.5-10.5 [facility] HospitalNmiicvaEYZCIMPSEIMM7808-35-05 10:11:00 Test Item Value Reference Range Interpretation Comments CO2 (test code = CO2) 25 24-32 [facility] HospitalUspuatzXZQXEONNECXW2024-59-88 10:11:00 Test Item Value Reference Range Interpretation Comments Chloride Lvl (test code = Chloride Lvl) 108 95-[address] [facility] HospitalQoyxbocRLLZWJHCVNUY1317-96-99 10:11:00 Test Item Value Reference Range Interpretation Comments Potassium Lvl (test code = Potassium 4.0 3.5-5.1 Lvl) [facility] HospitalXohgvycNCRVIRCHJBEB6298-47-76 10:11:00 Test Item Value Reference Range Interpretation Comments Sodium Lvl (test code = Sodium Lvl) 140 135-[address] [facility] HospitalFgcycljZVAMOMNHWOWV8176-88-96 10:11:00 Test Item Value Reference Range Interpretation Comments BUN (test code = BUN) 11 7-22 [facility] HospitalKxmdkpsRYBSQYMSBBCC9652-35-79 10:11:00 Test Item Value Reference Range Interpretation Comments Glucose Lvl (test code = Glucose Lvl) 85 70-99 [facility] CenterQpxynboYVMLCIICLG9383-11-73 10:11:00 Test Item Value Reference Range Interpretation Comments MCH (test code = MCH) 27.9 pg 27.0-31.0 [facility] CenterWfirjvjXKXTQEUTTQ9764-80-11 10:11:00 Test Item Value Reference Range Interpretation Comments MCHC (test code = MCHC) 33.5 32.0-36.0 [facility] CenterGxrsqazWWDNEKPZSB3922-24-81 10:11:00 Test Item Value Reference Range Interpretation Comments Hct (test code = Hct) 36.7 42.0-54.0 [facility] CenterQihkxrjQXAZRUORXP8096-31-39 10:11:00 Test Item Value Reference Range Interpretation Comments MCV (test code = MCV) 83.1 80.0-94.0 [facility] CenterNomvxhaKWXITGTIDQ1662-86-17 10:11:00 Test Item Value Reference Range Interpretation Comments RBC (test code = RBC) 4.42 4.70-6.10 [facility] CenterSgdatafXOEYQAJMJF6618-68-31 10:11:00 Test Item Value Reference Range Interpretation Comments Hgb (test code = Hgb) 12.3 14.0-18.0 [facility] CenterQbeizxmDGJEWJHVPV2171-52-37 10:11:00 Test Item Value Reference Range Interpretation Comments WBC (test code = WBC) 8.5 3.7-10.4 [facility] CenterWhpnfqyHPWPRGRXFR5291-34-76 10:11:00 Test Item Value Reference Range Interpretation Comments MPV (test code = MPV) 9.5 7.4-10.4 [facility] CenterBgszmpzYNSOKVEFVN1098-84-79 10:11:00 Test Item Value Reference Range Interpretation Comments RDW (test code = RDW) 14.4 11.5-14.5 [facility] CenterOvxzygdGYOVMTGVGO3072-79-04 10:11:00 Test Item Value Reference Range Interpretation Comments Platelet (test code = Platelet) 164 133-450 [facility] CenterJodpeneKVMXLIMMGK0129-73-06 10:11:00 Test Item Value Reference Range Interpretation Comments Lymphocytes # (test code = Lymphocytes 1.2 1.0-5.5 #) [facility] CenterEwkykqvBUVHIJZFSE5330-81-60 10:11:00 Test Item Value Reference Range Interpretation Comments Monocytes # (test code 0.6 See_Comment [Aut omated message] The = Monocytes #) system which generated this result tra nsmitted reference range : <=0.8. The reference r annemarie was not used to int erpret this result as normal/abnormal . [facility] CenterYiaqllxKZHATTWHPM2939-50-68 10:11:00 Test Item Value Reference Range Interpretation Comments Eosinophils # (test code 0.2 See_Comment [A utomated message] The = Eosinophils #) system whic h generated this result tra nsmitted reference range : <=0.5. The reference r annemarie was not used to int erpret this result as normal/abnormal . [facility] CenterHsnqvpxVOWOIUBSCI3183-27-56 10:11:00 Test Item Value Reference Range Interpretation Comments Basophils # (test code 0.0 See_Comment [Aut omated message] The = Basophils #) system which generated this result tra nsmitted reference range : <=0.2. The reference r annemarie was not used to int erpret this result as normal/abnormal . [facility] HealthSglhzviVGCBXITOMU7207-47-10 10:11:00 Test Item Value Reference Range Interpretation Comments Eosinophils (test code = 2.3 See_Comment [A utomated message] The Eosinophils) system which ge nerated this result tra nsmitted reference range : <=4.0. The reference r annemarie was not used to int erpret this result as normal/abnormal . [facility] CenterXdrnshiNDHUFQPVIA7146-35-97 10:11:00 Test Item Value Reference Range Interpretation Comments Basophils (test code = 0.3 See_Comment [Aut omated message] The Basophils) system which ge nerated this result tra nsmitted reference range : <=1.0. The reference r annemarie was not used to int erpret this result as normal/abnormal . [facility] HealthYnoktteUVFWXJICDZ1342-31-20 10:11:00 Test Item Value Reference Range Interpretation Comments Neutrophils # (test code = Neutrophils 6.5 1.5-8.1 #) [facility] HealthKduenibXYVDNHNEGQ6421-78-40 10:11:00 Test Item Value Reference Range Interpretation Comments Lymphocytes (test code = Lymphocytes) 14.5 20.0-40.0 [facility]bergKfoewhjJSVYKCEDGB8394-00-71 10:11:00 Test Item Value Reference Range Interpretation Comments Monocytes (test code = Monocytes) 6.7 2.0-12.0 [facility]pffZWPTOCGTUU3305-25-15 10:11:00 Test Item Value Reference Range Interpretation Comments Segs (test code = Segs) 76.2 45.0-75.0 [facility] HospitalannPARATHYROID PPPNNCN7770-70-42 10:11:00 Test Item Value Reference Range Interpretation Comments Ca Norm WB (test code = Ca Norm WB) 1.13 1.05-1.25 [facility] LancasterannPARATHYROID NYSJAGO4968-89-01 10:11:00 Test Item Value Reference Range Interpretation Comments Ca Ion WB (test code = Ca Ion WB) 1.17 1.05-1.25 [facility] LancasterannCARDIAC GODLWLY5543-95-53 10:11:00 Test Item Value Reference Range Interpretation Comments Troponin-I (test code no gt See_Comment [Auto mated message] The = Troponin-I) system which g enerated this result transmit adbelrahman reference range : <=0.40. The reference r annemarie was not used to interpr et this result as gurpreet l/abnormal. [facility]bergCHEM BRQTK9756-71-28 10:11:00 Test Item Value Reference Range Interpretation Comments Phosphorus (test code = Phosphorus) 3.7 2.5-4.5 [facility]bergCHE[facility] DIMGT5813-30-63 10:11:00 Test Item Value Reference Range Interpretation Comments Magnesium Lvl (test code = Magnesium 2.1 1.8-2.4 Lvl) [facility] LancasterCdmpggdYPCJHXNXWHXY0348-53-32 10:11:00 Test Item Value Reference Range Interpretation Comments AGAP (test code = AGAP) 11.0 10.0-20.0 [facility] CenterNrakavoKLJSVSBMEJJS8788-93-78 10:11:00 Test Item Value Reference Range Interpretation Comments Creatinine Lvl (test code = Creatinine 0.90 0.50-1.40 Lvl) [facility] LancasterPopdidvYTVUVVIRMCAI3624-30-65 10:11:00 Test Item Value Reference Range Interpretation Comments eGFR (test code = eGFR) 114 [facility]WsjvowzASBDGHVXWYUK5309-52-52 10:11:00 Test Item Value Reference Range Interpretation Comments Calcium Lvl (test code = Calcium Lvl) 8.2 8.5-10.5 [facility] CenterLsdackiOZOFLBDDISEM0467-73-82 10:11:00 Test Item Value Reference Range Interpretation Comments CO2 (test code = CO2) 25 24-32 [facility] CenterPafjqbrVAYJIKGRCCGK7894-32-09 10:11:00 Test Item Value Reference Range Interpretation Comments Chloride Lvl (test code = Chloride Lvl) 108 95-109 [facility] CenterDdslddfUHNIFOGEUFKS0736-01-16 10:11:00 Test Item Value Reference Range Interpretation Comments Potassium Lvl (test code = Potassium 4.0 3.5-5.1 Lvl) [facility]XrqpdpwCSOZWRYQZXON9673-82-92 10:11:00 Test Item Value Reference Range Interpretation Comments Sodium Lvl (test code = Sodium Lvl) 140 135-145 [facility] HospitalSjoozxwIFBUMKDAETHV5185-30-76 10:11:00 Test Item Value Reference Range Interpretation Comments BUN (test code = BUN) 11 7-22 [facility] LancasterTvpskhhTBKPEIXTSSNV7327-51-23 10:11:00 Test Item Value Reference Range Interpretation Comments Glucose Lvl (test code = Glucose Lvl) 85 70-99 [facility] CenterQovhemrWMPZGXAXFQ5602-59-53 10:11:00 Test Item Value Reference Range Interpretation Comments MCH (test code = MCH) 27.9 pg 27.0-31.0 [facility] CenterDptbrswJPOFFCAKOE4431-32-55 10:11:00 Test Item Value Reference Range Interpretation Comments MCHC (test code = MCHC) 33.5 32.0-36.0 [facility] CenterDgkbasyRIRQELEQQF1333-82-47 10:11:00 Test Item Value Reference Range Interpretation Comments Hct (test code = Hct) 36.7 42.0-54.0 [facility] CenterVqbsuspEKLWXWBZFY9698-14-18 10:11:00 Test Item Value Reference Range Interpretation Comments MCV (test code = MCV) 83.1 80.0-94.0 [facility] CenterFhjxslpPALGOHVNLH8509-62-85 10:11:00 Test Item Value Reference Range Interpretation Comments RBC (test code = RBC) 4.42 4.70-6.10 [facility] CenterAhyhoewXAOGQIATPK2623-26-16 10:11:00 Test Item Value Reference Range Interpretation Comments Hgb (test code = Hgb) 12.3 14.0-18.0 [facility] CenterParyskpEMLTWRYRWC0823-52-27 10:11:00 Test Item Value Reference Range Interpretation Comments WBC (test code = WBC) 8.5 3.7-10.4 [facility] CenterZuvadbvWSWUDNMNKV4741-37-07 10:11:00 Test Item Value Reference Range Interpretation Comments MPV (test code = MPV) 9.5 7.4-10.4 [facility] CenterKcvqcjuIAYEHITDNP8984-12-86 10:11:00 Test Item Value Reference Range Interpretation Comments RDW (test code = RDW) 14.4 11.5-14.5 [facility] CenterDznneqmLJPEKHRMDV3653-97-63 10:11:00 Test Item Value Reference Range Interpretation Comments Platelet (test code = Platelet) 164 133-450 [facility] CenterKrmlxeqXMXMYZNEML0544-29-47 10:11:00 Test Item Value Reference Range Interpretation Comments Lymphocytes # (test code = Lymphocytes 1.2 1.0-5.5 #) [facility] CenterSzlpnuhRLVRIXBTHX8237-31-49 10:11:00 Test Item Value Reference Range Interpretation Comments Monocytes # (test code 0.6 See_Comment [Aut omated message] The = Monocytes #) system which generated this result tra nsmitted reference range : <=0.8. The reference r annemarie was not used to int erpret this result as normal/abnormal . [id number] 10:11:00 Test Item Value Reference Range Interpretation Comments Eosinophils # (test code 0.2 See_Comment [A utomated message] The = Eosinophils #) system whic h generated this result tra nsmitted reference range : <=0.5. The reference r annemarie was not used to int erpret this result as normal/abnormal . [id number] 10:11:00 Test Item Value Reference Range Interpretation Comments Basophils # (test code 0.0 See_Comment [Aut omated message] The = Basophils #) system which generated this result tra nsmitted reference range : <=0.2. The reference r annemarie was not used to int erpret this result as normal/abnormal . [facility] CenterFikaqapTKIKFPSNEC7129-72-69 10:11:00 Test Item Value Reference Range Interpretation Comments Eosinophils (test code = 2.3 See_Comment [A utomated message] The Eosinophils) system which ge nerated this result tra nsmitted reference range : <=4.0. The reference r annemarie was not used to int erpret this result as normal/abnormal . [facility] [id number] 10:11:00 Test Item Value Reference Range Interpretation Comments Basophils (test code = 0.3 See_Comment [Aut omated message] The Basophils) system which ge nerated this result tra nsmitted reference range : <=1.0. The reference r annemarie was not used to int erpret this result as normal/abnormal . [facility] CenterHgntwffPTMMDWJADF7589-75-61 10:11:00 Test Item Value Reference Range Interpretation Comments Neutrophils # (test code = Neutrophils 6.5 1.5-8.1 #) [facility] C[id number] 10:11:00 Test Item Value Reference Range Interpretation Comments Lymphocytes (test code = Lymphocytes) 14.5 20.0-40.0 [facility] CenterQbulufoCFXMTFMVAD0519-08-70 10:11:00 Test Item Value Reference Range Interpretation Comments Monocytes (test code = Monocytes) 6.7 2.0-12.0 [facility] C[id number] 10:11:00 Test Item Value Reference Range Interpretation Comments Segs (test code = Segs) 76.2 45.0-75.0 [facility]2018-12-14 10:11:00 Test Item Value Reference Range Interpretation Comments Ca Norm WB (test code = Ca Norm WB) 1.13 1.05-1.25 [facility]2018-12-14 10:11:00 Test Item Value Reference Range Interpretation Comments Ca Ion WB (test code = Ca Ion WB) 1.17 1.05-1.25 [facility] AND [id number] 06:21:00 Test Item Value Reference Range Interpretation Comments UA Sq Epi (test code = None Seen (04/13/18 UA Sq Epi) 12:21 AM) [facility] AND [id number] 06:21:00 Test Item Value Reference Range Interpretation Comments UA WBC (test code = 1 See_Comment [Automa abdelrahman message] The UA WBC) system which ge nerated this result transmit abdelrahman reference range : <=5. The reference range was not used to interpr et this result as gurpreet l/abnormal. [facility] AND [id number] 06:21:00 Test Item Value Reference Range Interpretation Comments UA RBC (test code = 1 See_Comment [Automa abdelrahman message] The UA RBC) system which ge nerated this result transmit abdelrahman reference range : <=2. The reference range was not used to interpr et this result as gurpreet l/abnormal. [facility] AND [id number] 06:21:00 Test Item Value Reference Range Interpretation Comments UA [place] Yeast (test code = UA Occasional /HPF [place] Yeast) [facility] AND [id number] 06:21:00 Test Item Value Reference Range Interpretation Comments UA Color (test code = UA Color) Ltyellow [facility] AND [id number] 06:21:00 Test Item Value Reference Range Interpretation Comments UA Spec Grav (test code = UA Spec 1.009 1 Grav) [facility] AND [id number] 06:21:00 Test Item Value Reference Range Interpretation Comments UA Turbidity (test code = Clear (04/13/18 UA Turbidity) 12:21 AM) [facility] AND [id number] 06:21:00 Test Item Value Reference Range Interpretation Comments UA Urobilinogen (test code = UA no gt 0.1-1.0 Urobilinogen) [facility] AND [id number] 06:21:00 Test Item Value Reference Range Interpretation Comments UA Ketones (test code Negative *NA*(04/13/18 = UA Ketones) 12:21 AM) [facility] AND [id number] 06:21:00 Test Item Value Reference Range Interpretation Comments UA Glucose (test code Negative *NA*(04/13/18 = UA Glucose) 12:21 AM) [facility] AND [id number] 06:21:00 Test Item Value Reference Range Interpretation Comments UA Leuk Est (test code Trace *ABN*(04/13/18 = UA Leuk Est) 12:21 AM) [facility] AND [id number] 06:21:00 Test Item Value Reference Range Interpretation Comments UA Nitrite (test code Negative (04/13/18 = UA Nitrite) 12:21 AM) [facility] AND [id number] 06:21:00 Test Item Value Reference Range Interpretation Comments UA Bili (test code = Negative *NA*(04/13/18 UA Bili) 12:21 AM) [facility] AND [id number] 06:21:00 Test Item Value Reference Range Interpretation Comments UA pH (test code = UA pH) 7.0 1 5.0-8.0 [facility] AND [id number] 06:21:00 Test Item Value Reference Range Interpretation Comments UA Blood (test code = Negative (04/13/18 12:21 UA Blood) AM) [facility] AND [id number] 06:21:00 Test Item Value Reference Range Interpretation Comments UA Protein (test code Negative (04/13/18 = UA Protein) 12:21 AM) [facility] AND [id number] 06:21:00 Test Item Value Reference Range Interpretation Comments UA Sq Epi (test code = None Seen (04/13/18 UA Sq Epi) 12:21 AM) [facility] AND [id number] 06:21:00 Test Item Value Reference Range Interpretation Comments UA WBC (test code = 1 See_Comment [Automa abdelrahman message] The UA WBC) system which ge nerated this result transmit abdelrahman reference range : <=5. The reference range was not used to interpr et this result as gurpreet l/abnormal. [facility] AND [id number] 06:21:00 Test Item Value Reference Range Interpretation Comments UA RBC (test code = 1 See_Comment [Automa abdelrahman message] The UA RBC) system which ge nerated this result transmit abdelrahman reference range : <=2. The reference range was not used to interpr et this result as gurpreet l/abnormal. [facility] AND [id number] 06:21:00 Test Item Value Reference Range Interpretation Comments UA [place] Yeast (test code = UA Occasional /HPF [place] Yeast) [facility] AND [id number] 06:21:00 Test Item Value Reference Range Interpretation Comments UA Color (test code = UA Color) Ltyellow [facility] AND [id number] 06:21:00 Test Item Value Reference Range Interpretation Comments UA Spec Grav (test code = UA Spec 1.009 1 Grav) [facility] AND [id number] 06:21:00 Test Item Value Reference Range Interpretation Comments UA Turbidity (test code = Clear (04/13/18 UA Turbidity) 12:21 AM) [facility] AND [id number] 06:21:00 Test Item Value Reference Range Interpretation Comments UA Urobilinogen (test code = UA no gt 0.1-1.0 Urobilinogen) [facility] AND [id number] 06:21:00 Test Item Value Reference Range Interpretation Comments UA Ketones (test code Negative *NA*(04/13/18 = UA Ketones) 12:21 AM) [facility] AND [id number] 06:21:00 Test Item Value Reference Range Interpretation Comments UA Glucose (test code Negative *NA*(04/13/18 = UA Glucose) 12:21 AM) [facility] AND [id number] 06:21:00 Test Item Value Reference Range Interpretation Comments UA Leuk Est (test code Trace *ABN*(04/13/18 = UA Leuk Est) 12:21 AM) [facility] [id number] 06:21:00 Test Item Value Reference Range Interpretation Comments UA Nitrite (test code Negative (04/13/18 = UA Nitrite) 12:21 AM) [facility] [id number] 06:21:00 Test Item Value Reference Range Interpretation Comments UA Bili (test code = Negative *NA*(04/13/18 UA Bili) 12:21 AM) [facility] [id number] 06:21:00 Test Item Value Reference Range Interpretation Comments UA pH (test code = UA pH) 7.0 1 5.0-8.0 [facility] [id number] 06:21:00 Test Item Value Reference Range Interpretation Comments UA Blood (test code = Negative (04/13/18 12:21 UA Blood) AM) [facility] [id number] 06:21:00 Test Item Value Reference Range Interpretation Comments UA Protein (test code Negative (04/13/18 = UA Protein) 12:21 AM) [facility] [id number] 06:21:00 Test Item Value Reference Range Interpretation Comments UA Sq Epi (test code = None Seen (04/13/18 UA Sq Epi) 12:21 AM) [facility] [id number] 06:21:00 Test Item Value Reference Range Interpretation Comments UA WBC (test code = 1 See_Comment [Automa abdelrahman message] The UA WBC) system which ge nerated this result transmit abdelrahman reference range : <=5. The reference range was not used to interpr et this result as gurpreet l/abnormal. [facility] [id number] 06:21:00 Test Item Value Reference Range Interpretation Comments UA RBC (test code = 1 See_Comment [Automa abdelrahman message] The UA RBC) system which ge nerated this result transmit abdelrahman reference range : <=2. The reference range was not used to interpr et this result as gurpreet l/abnormal. [facility] [id number] 06:21:00 Test Item Value Reference Range Interpretation Comments UA [place] Yeast (test code = UA Occasional /HPF [place] Yeast) [facility] [id number] 06:21:00 Test Item Value Reference Range Interpretation Comments UA Color (test code = UA Color) Ltyellow [facility] AND [id number] 06:21:00 Test Item Value Reference Range Interpretation Comments UA Spec Grav (test code = UA Spec 1.009 1 Grav) [facility] AND [id number] 06:21:00 Test Item Value Reference Range Interpretation Comments UA Turbidity (test code = Clear (04/13/18 UA Turbidity) 12:21 AM) [facility] AND [id number] 06:21:00 Test Item Value Reference Range Interpretation Comments UA Urobilinogen (test code = UA no gt 0.1-1.0 Urobilinogen) [facility] AND [id number] 06:21:00 Test Item Value Reference Range Interpretation Comments UA Ketones (test code Negative *NA*(04/13/18 = UA Ketones) 12:21 AM) [facility] AND [id number] 06:21:00 Test Item Value Reference Range Interpretation Comments UA Glucose (test code Negative *NA*(04/13/18 = UA Glucose) 12:21 AM) [facility] AND [id number] 06:21:00 Test Item Value Reference Range Interpretation Comments UA Leuk Est (test code Trace *ABN*(04/13/18 = UA Leuk Est) 12:21 AM) [facility] AND [id number] 06:21:00 Test Item Value Reference Range Interpretation Comments UA Nitrite (test code Negative (04/13/18 = UA Nitrite) 12:21 AM) [facility] AND [id number] 06:21:00 Test Item Value Reference Range Interpretation Comments UA Bili (test code = Negative *NA*(04/13/18 UA Bili) 12:21 AM) [facility] AND [id number] 06:21:00 Test Item Value Reference Range Interpretation Comments UA pH (test code = UA pH) 7.0 1 5.0-8.0 [facility] AND [id number] 06:21:00 Test Item Value Reference Range Interpretation Comments UA Blood (test code = Negative (04/13/18 12:21 UA Blood) AM) [facility] AND [id number] 06:21:00 Test Item Value Reference Range Interpretation Comments UA Protein (test code Negative (04/13/18 = UA Protein) 12:21 AM) [facility] [id number] 06:21:00 Test Item Value Reference Range Interpretation Comments UA Sq Epi (test code = None Seen (04/13/18 UA Sq Epi) 12:21 AM) [facility] [id number] 06:21:00 Test Item Value Reference Range Interpretation Comments UA WBC (test code = 1 See_Comment [Automa abdelrahman message] The UA WBC) system which ge nerated this result transmit abdelrahman reference range : <=5. The reference range was not used to interpr et this result as gurpreet l/abnormal. [facility] [id number] 06:21:00 Test Item Value Reference Range Interpretation Comments UA RBC (test code = 1 See_Comment [Automa abdelrahman message] The UA RBC) system which ge nerated this result transmit abdelrahman reference range : <=2. The reference range was not used to interpr et this result as gurpreet l/abnormal. [facility] [id number] 06:21:00 Test Item Value Reference Range Interpretation Comments UA [place] Yeast (test code = UA Occasional /HPF [place] Yeast) [facility] [id number] 06:21:00 Test Item Value Reference Range Interpretation Comments UA Color (test code = UA Color) Ltyellow [facility] [id number] 06:21:00 Test Item Value Reference Range Interpretation Comments UA Spec Grav (test code = UA Spec 1.009 1 Grav) [facility] [id number] 06:21:00 Test Item Value Reference Range Interpretation Comments UA Turbidity (test code = Clear (04/13/18 UA Turbidity) 12:21 AM) [facility] [id number] 06:21:00 Test Item Value Reference Range Interpretation Comments UA Urobilinogen (test code = UA no gt 0.1-1.0 Urobilinogen) [facility] [id number] 06:21:00 Test Item Value Reference Range Interpretation Comments UA Ketones (test code Negative *NA*(04/13/18 = UA Ketones) 12:21 AM) [facility] [id number] 06:21:00 Test Item Value Reference Range Interpretation Comments UA Glucose (test code Negative *NA*(04/13/18 = UA Glucose) 12:21 AM) [facility] [id number] 06:21:00 Test Item Value Reference Range Interpretation Comments UA Leuk Est (test code Trace *ABN*(04/13/18 = UA Leuk Est) 12:21 AM) [facility] [id number] 06:21:00 Test Item Value Reference Range Interpretation Comments UA Nitrite (test code Negative (04/13/18 = UA Nitrite) 12:21 AM) [facility] [id number] 06:21:00 Test Item Value Reference Range Interpretation Comments UA Bili (test code = Negative *NA*(04/13/18 UA Bili) 12:21 AM) [facility] [id number] 06:21:00 Test Item Value Reference Range Interpretation Comments UA pH (test code = UA pH) 7.0 1 5.0-8.0 [facility] AND [id number] 06:21:00 Test Item Value Reference Range Interpretation Comments UA Blood (test code = Negative (04/13/18 12:21 UA Blood) AM) [facility] AND [id number] 06:21:00 Test Item Value Reference Range Interpretation Comments UA Protein (test code Negative (04/13/18 = UA Protein) 12:21 AM) [facility] AND [id number] 06:21:00 Test Item Value Reference Range Interpretation Comments UA Sq Epi (test code = None Seen (04/13/18 UA Sq Epi) 12:21 AM) [facility] AND [id number] 06:21:00 Test Item Value Reference Range Interpretation Comments UA WBC (test code = 1 See_Comment [Automa abdelrahman message] The UA WBC) system which ge nerated this result transmit abdelrahman reference range : <=5. The reference range was not used to interpr et this result as gurpreet l/abnormal. [facility] [id number] 06:21:00 Test Item Value Reference Range Interpretation Comments UA RBC (test code = 1 See_Comment [Automa abdelrahman message] The UA RBC) system which ge nerated this result transmit abdelrahman reference range : <=2. The reference range was not used to interpr et this result as gurpreet l/abnormal. [facility] AND [id number] 06:21:00 Test Item Value Reference Range Interpretation Comments UA [place] Yeast (test code = UA Occasional /HPF [place] Yeast) [facility] AND [id number] 06:21:00 Test Item Value Reference Range Interpretation Comments UA Color (test code = UA Color) Ltyellow [facility] AND [id number] 06:21:00 Test Item Value Reference Range Interpretation Comments UA Spec Grav (test code = UA Spec 1.009 1 Grav) [facility] AND [id number] 06:21:00 Test Item Value Reference Range Interpretation Comments UA Turbidity (test code = Clear (04/13/18 UA Turbidity) 12:21 AM) [facility] AND [id number] 06:21:00 Test Item Value Reference Range Interpretation Comments UA Urobilinogen (test code = UA no gt 0.1-1.0 Urobilinogen) [facility] AND [id number] 06:21:00 Test Item Value Reference Range Interpretation Comments UA Ketones (test code Negative *NA*(04/13/18 = UA Ketones) 12:21 AM) [facility] AND [id number] 06:21:00 Test Item Value Reference Range Interpretation Comments UA Glucose (test code Negative *NA*(04/13/18 = UA Glucose) 12:21 AM) [facility] AND [id number] 06:21:00 Test Item Value Reference Range Interpretation Comments UA Leuk Est (test code Trace *ABN*(04/13/18 = UA Leuk Est) 12:21 AM) [facility] AND [id number] 06:21:00 Test Item Value Reference Range Interpretation Comments UA Nitrite (test code Negative (04/13/18 = UA Nitrite) 12:21 AM) [facility] AND [id number] 06:21:00 Test Item Value Reference Range Interpretation Comments UA Bili (test code = Negative *NA*(04/13/18 UA Bili) 12:21 AM) [facility] AND [id number] 06:21:00 Test Item Value Reference Range Interpretation Comments UA pH (test code = UA pH) 7.0 1 5.0-8.0 [facility] [id number] 06:21:00 Test Item Value Reference Range Interpretation Comments UA Blood (test code = Negative (04/13/18 12:21 UA Blood) AM) [facility] [id number] 06:21:00 Test Item Value Reference Range Interpretation Comments UA Protein (test code Negative (04/13/18 = UA Protein) 12:21 AM) [facility] [id number] 06:21:00 Test Item Value Reference Range Interpretation Comments UA Sq Epi (test code = None Seen (04/13/18 UA Sq Epi) 12:21 AM) [facility] [id number] 06:21:00 Test Item Value Reference Range Interpretation Comments UA WBC (test code = 1 See_Comment [Automa abdelrahman message] The UA WBC) system which ge nerated this result transmit abdelrahman reference range : <=5. The reference range was not used to interpr et this result as gurpreet l/abnormal. [facility] [id number] 06:21:00 Test Item Value Reference Range Interpretation Comments UA RBC (test code = 1 See_Comment [Automa abdelrahman message] The UA RBC) system which ge nerated this result transmit abdelrahman reference range : <=2. The reference range was not used to interpr et this result as gurpreet l/abnormal. [facility] [id number] 06:21:00 Test Item Value Reference Range Interpretation Comments UA [place] Yeast (test code = UA Occasional /HPF [place] Yeast) [facility] [id number] 06:21:00 Test Item Value Reference Range Interpretation Comments UA Color (test code = UA Color) Ltyellow [facility] [id number] 06:21:00 Test Item Value Reference Range Interpretation Comments UA Spec Grav (test code = UA Spec 1.009 1 Grav) [facility] [id number] 06:21:00 Test Item Value Reference Range Interpretation Comments UA Turbidity (test code = Clear (04/13/18 UA Turbidity) 12:21 AM) [facility] [id number] 06:21:00 Test Item Value Reference Range Interpretation Comments UA Urobilinogen (test code = UA no gt 0.1-1.0 Urobilinogen) [facility] AND [id number] 06:21:00 Test Item Value Reference Range Interpretation Comments UA Ketones (test code Negative *NA*(04/13/18 = UA Ketones) 12:21 AM) [facility] [id number] 06:21:00 Test Item Value Reference Range Interpretation Comments UA Glucose (test code Negative *NA*(04/13/18 = UA Glucose) 12:21 AM) [facility] AND [id number] 06:21:00 Test Item Value Reference Range Interpretation Comments UA Leuk Est (test code Trace *ABN*(04/13/18 = UA Leuk Est) 12:21 AM) [facility] AND [id number] 06:21:00 Test Item Value Reference Range Interpretation Comments UA Nitrite (test code Negative (04/13/18 = UA Nitrite) 12:21 AM) [facility] AND [id number] 06:21:00 Test Item Value Reference Range Interpretation Comments UA Bili (test code = Negative *NA*(04/13/18 UA Bili) 12:21 AM) [facility] AND [id number] 06:21:00 Test Item Value Reference Range Interpretation Comments UA pH (test code = UA pH) 7.0 1 5.0-8.0 [facility] AND [id number] 06:21:00 Test Item Value Reference Range Interpretation Comments UA Blood (test code = Negative (04/13/18 12:21 UA Blood) AM) [facility] AND [id number] 06:21:00 Test Item Value Reference Range Interpretation Comments UA Protein (test code Negative (04/13/18 = UA Protein) 12:21 AM) [facility] AND [id number] 06:21:00 Test Item Value Reference Range Interpretation Comments UA Sq Epi (test code = None Seen (04/13/18 UA Sq Epi) 12:21 AM) [facility] AND [id number] 06:21:00 Test Item Value Reference Range Interpretation Comments UA WBC (test code = 1 See_Comment [Automa abdelrahman message] The UA WBC) system which ge nerated this result transmit abdelrahman reference range : <=5. The reference range was not used to interpr et this result as gurpreet l/abnormal. [facility] AND [id number] 06:21:00 Test Item Value Reference Range Interpretation Comments UA RBC (test code = 1 See_Comment [Automa abdelrahman message] The UA RBC) system which ge nerated this result transmit abdelrahman reference range : <=2. The reference range was not used to interpr et this result as gurpreet l/abnormal. [facility] AND [id number] 06:21:00 Test Item Value Reference Range Interpretation Comments UA [place] Yeast (test code = UA Occasional /HPF [place] Yeast) [facility] AND [id number] 06:21:00 Test Item Value Reference Range Interpretation Comments UA Color (test code = UA Color) Ltyellow [facility] AND [id number] 06:21:00 Test Item Value Reference Range Interpretation Comments UA Spec Grav (test code = UA Spec 1.009 1 Grav) [facility] AND [id number] 06:21:00 Test Item Value Reference Range Interpretation Comments UA Turbidity (test code = Clear (04/13/18 UA Turbidity) 12:21 AM) [facility] AND [id number] 06:21:00 Test Item Value Reference Range Interpretation Comments UA Urobilinogen (test code = UA no gt 0.1-1.0 Urobilinogen) [facility] AND [id number] 06:21:00 Test Item Value Reference Range Interpretation Comments UA Ketones (test code Negative *NA*(04/13/18 = UA Ketones) 12:21 AM) [facility] AND [id number] 06:21:00 Test Item Value Reference Range Interpretation Comments UA Glucose (test code Negative *NA*(04/13/18 = UA Glucose) 12:21 AM) [facility] AND [id number] 06:21:00 Test Item Value Reference Range Interpretation Comments UA Leuk Est (test code Trace *ABN*(04/13/18 = UA Leuk Est) 12:21 AM) [facility] AND [id number] 06:21:00 Test Item Value Reference Range Interpretation Comments UA Nitrite (test code Negative (04/13/18 = UA Nitrite) 12:21 AM) [facility] [id number] 06:21:00 Test Item Value Reference Range Interpretation Comments UA Bili (test code = Negative *NA*(04/13/18 UA Bili) 12:21 AM) [facility] [id number] 06:21:00 Test Item Value Reference Range Interpretation Comments UA pH (test code = UA pH) 7.0 1 5.0-8.0 [facility] [id number] 06:21:00 Test Item Value Reference Range Interpretation Comments UA Blood (test code = Negative (04/13/18 12:21 UA Blood) AM) [facility] [id number] 06:21:00 Test Item Value Reference Range Interpretation Comments UA Protein (test code Negative (04/13/18 = UA Protein) 12:21 AM) [facility] [id number] 06:21:00 Test Item Value Reference Range Interpretation Comments UA Sq Epi (test code = None Seen (04/13/18 UA Sq Epi) 12:21 AM) [facility] [id number] 06:21:00 Test Item Value Reference Range Interpretation Comments UA WBC (test code = 1 See_Comment [Automa abdelrahman message] The UA WBC) system which ge nerated this result transmit abdelrahman reference range : <=5. The reference range was not used to interpr et this result as gurpreet l/abnormal. [facility] [id number] 06:21:00 Test Item Value Reference Range Interpretation Comments UA RBC (test code = 1 See_Comment [Automa abdelrahman message] The UA RBC) system which ge nerated this result transmit abdelrahman reference range : <=2. The reference range was not used to interpr et this result as gurpreet l/abnormal. [facility] [id number] 06:21:00 Test Item Value Reference Range Interpretation Comments UA [place] Yeast (test code = UA Occasional /HPF [place] Yeast) [facility] [id number] 06:21:00 Test Item Value Reference Range Interpretation Comments UA Color (test code = UA Color) Ltyellow [facility] [id number] 06:21:00 Test Item Value Reference Range Interpretation Comments UA Spec Grav (test code = UA Spec 1.009 1 Grav) [facility] AND [id number] 06:21:00 Test Item Value Reference Range Interpretation Comments UA Turbidity (test code = Clear (04/13/18 UA Turbidity) 12:21 AM) [facility] AND [id number] 06:21:00 Test Item Value Reference Range Interpretation Comments UA Urobilinogen (test code = UA no gt 0.1-1.0 Urobilinogen) [facility] AND [id number] 06:21:00 Test Item Value Reference Range Interpretation Comments UA Ketones (test code Negative *NA*(04/13/18 = UA Ketones) 12:21 AM) [facility] AND [id number] 06:21:00 Test Item Value Reference Range Interpretation Comments UA Glucose (test code Negative *NA*(04/13/18 = UA Glucose) 12:21 AM) [facility] AND [id number] 06:21:00 Test Item Value Reference Range Interpretation Comments UA Leuk Est (test code Trace *ABN*(04/13/18 = UA Leuk Est) 12:21 AM) [facility] AND [id number] 06:21:00 Test Item Value Reference Range Interpretation Comments UA Nitrite (test code Negative (04/13/18 = UA Nitrite) 12:21 AM) [facility] AND [id number] 06:21:00 Test Item Value Reference Range Interpretation Comments UA Bili (test code = Negative *NA*(04/13/18 UA Bili) 12:21 AM) [facility] AND [id number] 06:21:00 Test Item Value Reference Range Interpretation Comments UA pH (test code = UA pH) 7.0 1 5.0-8.0 [facility] AND [id number] 06:21:00 Test Item Value Reference Range Interpretation Comments UA Blood (test code = Negative (04/13/18 12:21 UA Blood) AM) [facility] AND [id number] 06:21:00 Test Item Value Reference Range Interpretation Comments UA Protein (test code Negative (04/13/18 = UA Protein) 12:21 AM) [facility] AND [id number] 06:21:00 Test Item Value Reference Range Interpretation Comments UA Sq Epi (test code = None Seen (04/13/18 UA Sq Epi) 12:21 AM) [facility] AND [id number] 06:21:00 Test Item Value Reference Range Interpretation Comments UA WBC (test code = 1 See_Comment [Automa abdelrahman message] The UA WBC) system which ge nerated this result transmit abdelrahman reference range : <=5. The reference range was not used to interpr et this result as gurpreet l/abnormal. [facility] AND [id number] 06:21:00 Test Item Value Reference Range Interpretation Comments UA RBC (test code = 1 See_Comment [Automa abdelrahman message] The UA RBC) system which ge nerated this result transmit abdelrahman reference range : <=2. The reference range was not used to interpr et this result as gurpreet l/abnormal. [facility] AND [id number] 06:21:00 Test Item Value Reference Range Interpretation Comments UA [place] Yeast (test code = UA Occasional /HPF [place] Yeast) [facility] AND [id number] 06:21:00 Test Item Value Reference Range Interpretation Comments UA Color (test code = UA Color) Ltyellow [facility] AND [id number] 06:21:00 Test Item Value Reference Range Interpretation Comments UA Spec Grav (test code = UA Spec 1.009 1 Grav) [facility] AND [id number] 06:21:00 Test Item Value Reference Range Interpretation Comments UA Turbidity (test code = Clear (04/13/18 UA Turbidity) 12:21 AM) [facility] AND [id number] 06:21:00 Test Item Value Reference Range Interpretation Comments UA Urobilinogen (test code = UA no gt 0.1-1.0 Urobilinogen) [facility] AND [id number] 06:21:00 Test Item Value Reference Range Interpretation Comments UA Ketones (test code Negative *NA*(04/13/18 = UA Ketones) 12:21 AM) [facility] AND [id number] 06:21:00 Test Item Value Reference Range Interpretation Comments UA Glucose (test code Negative *NA*(04/13/18 = UA Glucose) 12:21 AM) [facility] AND [id number] 06:21:00 Test Item Value Reference Range Interpretation Comments UA Leuk Est (test code Trace *ABN*(04/13/18 = UA Leuk Est) 12:21 AM) [facility] [id number] 06:21:00 Test Item Value Reference Range Interpretation Comments UA Nitrite (test code Negative (04/13/18 = UA Nitrite) 12:21 AM) [facility] [id number] 06:21:00 Test Item Value Reference Range Interpretation Comments UA Bili (test code = Negative *NA*(04/13/18 UA Bili) 12:21 AM) [facility] [id number] 06:21:00 Test Item Value Reference Range Interpretation Comments UA pH (test code = UA pH) 7.0 1 5.0-8.0 [facility] [id number] 06:21:00 Test Item Value Reference Range Interpretation Comments UA Blood (test code = Negative (04/13/18 12:21 UA Blood) AM) [facility] [id number] 06:21:00 Test Item Value Reference Range Interpretation Comments UA Protein (test code Negative (04/13/18 = UA Protein) 12:21 AM) [facility] [employer]AC [id number] 05:42:00 Test Item Value Reference Range Interpretation Comments Troponin-I (test code no gt See_Comment [Auto mated message] The = Troponin-I) system which g enerated this result transmit abdelrahman reference range : <=0.40. The reference r annemarie was not used to interpr et this result as gurpreet l/abnormal. [facility] [id number] 05:42:00 Test Item Value Reference Range Interpretation Comments HIV Ag/Ab 4th Gen Negative *NA*(04/12/18 (test code = HIV 11:42 PM) Ag/Ab 4th Gen) [facility] [employer] [id number] 05:42:00 Test Item Value Reference Range Interpretation Comments Troponin-I (test code no gt See_Comment [Auto mated message] The = Troponin-I) system which g enerated this result transmit abdelrahman reference range : <=0.40. The reference r annemarie was not used to interpr et this result as gurpreet l/abnormal. [facility] [id number] 05:42:00 Test Item Value Reference Range Interpretation Comments HIV Ag/Ab 4th Gen Negative *NA*(04/12/18 (test code = HIV 11:42 PM) Ag/Ab 4th Gen) [facility] [employer]2018-12-14 05:42:00 Test Item Value Reference Range Interpretation Comments Troponin-I (test code no gt See_Comment [Auto mated message] The = Troponin-I) system which g enerated this result transmit abdelrahman reference range : <=0.40. The reference r annemarie was not used to interpr et this result as gurpreet l/abnormal. [facility] [id number] 05:42:00 Test Item Value Reference Range Interpretation Comments HIV Ag/Ab 4th Gen Negative *NA*(04/12/18 (test code = HIV 11:42 PM) Ag/Ab 4th Gen) [facility] Zauber [id number] 05:42:00 Test Item Value Reference Range Interpretation Comments Troponin-I (test code no gt See_Comment [Auto mated message] The = Troponin-I) system which g enerated this result transmit abdelrahman reference range : <=0.40. The reference r annemarie was not used to interpr et this result as gurpreet l/abnormal. [facility] [id number] 05:42:00 Test Item Value Reference Range Interpretation Comments HIV Ag/Ab 4th Gen Negative *NA*(04/12/18 (test code = HIV 11:42 PM) Ag/Ab 4th Gen) [facility] [employer]2018-12-14 05:42:00 Test Item Value Reference Range Interpretation Comments Troponin-I (test code no gt See_Comment [Auto mated message] The = Troponin-I) system which g enerated this result transmit abdelrahman reference range : <=0.40. The reference r annemarie was not used to interpr et this result as gurpreet l/abnormal. [facility] [id number] 05:42:00 Test Item Value Reference Range Interpretation Comments HIV Ag/Ab 4th Gen Negative *NA*(04/12/18 (test code = HIV 11:42 PM) Ag/Ab 4th Gen) [facility] [employer]2018-12-14 05:42:00 Test Item Value Reference Range Interpretation Comments Troponin-I (test code no gt See_Comment [Auto mated message] The = Troponin-I) system which g enerated this result transmit abdelrahman reference range : <=0.40. The reference r annemarie was not used to interpr et this result as gurpreet l/abnormal. [facility] [id number] 05:42:00 Test Item Value Reference Range Interpretation Comments HIV Ag/Ab 4th Gen Negative *NA*(04/12/18 (test code = HIV 11:42 PM) Ag/Ab 4th Gen) [facility] [employer]2018-12-14 05:42:00 Test Item Value Reference Range Interpretation Comments Troponin-I (test code no gt See_Comment [Auto mated message] The = Troponin-I) system which g enerated this result transmit abdelrahman reference range : <=0.40. The reference r annemarie was not used to interpr et this result as gurpreet l/abnormal. [facility] [id number] 05:42:00 Test Item Value Reference Range Interpretation Comments HIV Ag/Ab 4th Gen Negative *NA*(04/12/18 (test code = HIV 11:42 PM) Ag/Ab 4th Gen) [facility] [employer]2018-12-14 05:42:00 Test Item Value Reference Range Interpretation Comments Troponin-I (test code no gt See_Comment [Auto mated message] The = Troponin-I) system which g enerated this result transmit abdelrahman reference range : <=0.40. The reference r annemarie was not used to interpr et this result as gurpreet l/abnormal. [facility] [id number] 05:42:00 Test Item Value Reference Range Interpretation Comments HIV Ag/Ab 4th Gen Negative *NA*(04/12/18 (test code = HIV 11:42 PM) Ag/Ab 4th Gen) [facility] [employer]2018-12-14 05:42:00 Test Item Value Reference Range Interpretation Comments Troponin-I (test code no gt See_Comment [Auto mated message] The = Troponin-I) system which g enerated this result transmit abdelrahman reference range : <=0.40. The reference r annemarie was not used to interpr et this result as gurpreet l/abnormal. [facility] [id number] 05:42:00 Test Item Value Reference Range Interpretation Comments HIV Ag/Ab 4th Gen Negative *NA*(04/12/18 (test code = HIV 11:42 PM) Ag/Ab 4th Gen) [facility]BA[facility]EDIC[facility] - [id number] 05:18:00 Test Item Value Reference Range Interpretation Comments MRSA by PCR (test Negative (04/12/18 11:18 code = MRSA by PCR) PM) [facility]BA[facility] - [id number] 05:18:00 Test Item Value Reference Range Interpretation Comments MRSA by PCR (test Negative (04/12/18 11:18 code = MRSA by PCR) PM) [facility]BA[facility] - [id number] 05:18:00 Test Item Value Reference Range Interpretation Comments MRSA by PCR (test Negative (04/12/18 11:18 code = MRSA by PCR) PM) [facility]annBACT[facility] - [id number] 05:18:00 Test Item Value Reference Range Interpretation Comments MRSA by PCR (test Negative (04/12/18 11:18 code = MRSA by PCR) PM) [facility]BACT[facility] - [id number] 05:18:00 Test Item Value Reference Range Interpretation Comments MRSA by PCR (test Negative (04/12/18 11:18 code = MRSA by PCR) PM) [facility]BA[facility] - [id number] 05:18:00 Test Item Value Reference Range Interpretation Comments MRSA by PCR (test Negative (04/12/18 11:18 code = MRSA by PCR) PM) [facility]BA[facility] - [id number] 05:18:00 Test Item Value Reference Range Interpretation Comments MRSA by PCR (test Negative (04/12/18 11:18 code = MRSA by PCR) PM) [facility]BA[facility] - [id number] 05:18:00 Test Item Value Reference Range Interpretation Comments MRSA by PCR (test Negative (04/12/18 11:18 code = MRSA by PCR) PM) [facility]BA[facility] - [id number] 05:18:00 Test Item Value Reference Range Interpretation Comments MRSA by PCR (test Negative (04/12/18 11:18 code = MRSA by PCR) PM) [facility] [id number] 23:22:00 Test Item Value Reference Range Interpretation Comments U Odalys Scr (test code Negative *NA*(04/12/18 = U Odalys Scr) 5:22 PM) [facility] [id number] 23:22:00 Test Item Value Reference Range Interpretation Comments U Benzodiaz Scr (test Negative *NA*(04/12/18 code = U Benzodiaz Scr) 5:22 PM) [facility] [id number] 23:22:00 Test Item Value Reference Range Interpretation Comments U Amph Scr (test code Negative *NA*(04/12/18 = U Amph Scr) 5:22 PM) [facility] [id number] 23:22:00 Test Item Value Reference Range Interpretation Comments U Cocaine Scr (test Negative *NA*(04/12/18 code = U Cocaine Scr) 5:22 PM) [facility] [id number] 23:22:00 Test Item Value Reference Range Interpretation Comments U Opiate Scr (test Negative *NA*(04/12/18 code = U Opiate Scr) 5:22 PM) [facility] [id number] 23:22:00 Test Item Value Reference Range Interpretation Comments UDS Note (test code = See Note (04/12/18 5:22 UDS Note) PM) [facility] [id number] 23:22:00 Test Item Value Reference Range Interpretation Comments U Cannab Scr (test Negative *NA*(04/12/18 code = U Cannab Scr) 5:22 PM) [facility] [id number] 23:22:00 Test Item Value Reference Range Interpretation Comments U Phencyclidine Scr (test Negative code = U Phencyclidine *NA*(04/12/18 5:22 Scr) PM) [facility] [id number] 23:22:00 Test Item Value Reference Range Interpretation Comments U Odalys Scr (test code Negative *NA*(04/12/18 = U Odalys Scr) 5:22 PM) [facility] [id number] 23:22:00 Test Item Value Reference Range Interpretation Comments U Benzodiaz Scr (test Negative *NA*(04/12/18 code = U Benzodiaz Scr) 5:22 PM) [facility] [id number] 23:22:00 Test Item Value Reference Range Interpretation Comments U Amph Scr (test code Negative *NA*(04/12/18 = U Amph Scr) 5:22 PM) [facility] [id number] 23:22:00 Test Item Value Reference Range Interpretation Comments U Cocaine Scr (test Negative *NA*(04/12/18 code = U Cocaine Scr) 5:22 PM) [facility] [id number] 23:22:00 Test Item Value Reference Range Interpretation Comments U Opiate Scr (test Negative *NA*(04/12/18 code = U Opiate Scr) 5:22 PM) [facility] [id number] 23:22:00 Test Item Value Reference Range Interpretation Comments UDS Note (test code = See Note (04/12/18 5:22 UDS Note) PM) [facility] [id number] 23:22:00 Test Item Value Reference Range Interpretation Comments U Cannab Scr (test Negative *NA*(04/12/18 code = U Cannab Scr) 5:22 PM) [facility] [id number] 23:22:00 Test Item Value Reference Range Interpretation Comments U Phencyclidine Scr (test Negative code = U Phencyclidine *NA*(04/12/18 5:22 Scr) PM) [facility] [id number] 23:22:00 Test Item Value Reference Range Interpretation Comments U Odalys Scr (test code Negative *NA*(04/12/18 = U Odalys Scr) 5:22 PM) [facility] [id number] 23:22:00 Test Item Value Reference Range Interpretation Comments U Benzodiaz Scr (test Negative *NA*(04/12/18 code = U Benzodiaz Scr) 5:22 PM) [facility] [id number] 23:22:00 Test Item Value Reference Range Interpretation Comments U Amph Scr (test code Negative *NA*(04/12/18 = U Amph Scr) 5:22 PM) [facility] [id number] 23:22:00 Test Item Value Reference Range Interpretation Comments U Cocaine Scr (test Negative *NA*(04/12/18 code = U Cocaine Scr) 5:22 PM) [facility] [id number] 23:22:00 Test Item Value Reference Range Interpretation Comments U Opiate Scr (test Negative *NA*(04/12/18 code = U Opiate Scr) 5:22 PM) [facility] [id number] 23:22:00 Test Item Value Reference Range Interpretation Comments UDS Note (test code = See Note (04/12/18 5:22 UDS Note) PM) [facility] [id number] 23:22:00 Test Item Value Reference Range Interpretation Comments U Cannab Scr (test Negative *NA*(04/12/18 code = U Cannab Scr) 5:22 PM) [facility] [id number] 23:22:00 Test Item Value Reference Range Interpretation Comments U Phencyclidine Scr (test Negative code = U Phencyclidine *NA*(04/12/18 5:22 Scr) PM) [facility] [id number] 23:22:00 Test Item Value Reference Range Interpretation Comments U Odalys Scr (test code Negative *NA*(04/12/18 = U Odalys Scr) 5:22 PM) [facility] [id number] 23:22:00 Test Item Value Reference Range Interpretation Comments U Benzodiaz Scr (test Negative *NA*(04/12/18 code = U Benzodiaz Scr) 5:22 PM) [facility] [id number] 23:22:00 Test Item Value Reference Range Interpretation Comments U Amph Scr (test code Negative *NA*(04/12/18 = U Amph Scr) 5:22 PM) [facility] [id number] 23:22:00 Test Item Value Reference Range Interpretation Comments U Cocaine Scr (test Negative *NA*(04/12/18 code = U Cocaine Scr) 5:22 PM) [facility] [id number] 23:22:00 Test Item Value Reference Range Interpretation Comments U Opiate Scr (test Negative *NA*(04/12/18 code = U Opiate Scr) 5:22 PM) [facility] [id number] 23:22:00 Test Item Value Reference Range Interpretation Comments UDS Note (test code = See Note (04/12/18 5:22 UDS Note) PM) [facility] [id number] 23:22:00 Test Item Value Reference Range Interpretation Comments U Cannab Scr (test Negative *NA*(04/12/18 code = U Cannab Scr) 5:22 PM) [facility] [id number] 23:22:00 Test Item Value Reference Range Interpretation Comments U Phencyclidine Scr (test Negative code = U Phencyclidine *NA*(04/12/18 5:22 Scr) PM) [facility] [id number] 23:22:00 Test Item Value Reference Range Interpretation Comments U Odalys Scr (test code Negative *NA*(04/12/18 = U Odalys Scr) 5:22 PM) [facility] [id number] 23:22:00 Test Item Value Reference Range Interpretation Comments U Benzodiaz Scr (test Negative *NA*(04/12/18 code = U Benzodiaz Scr) 5:22 PM) [facility] [id number] 23:22:00 Test Item Value Reference Range Interpretation Comments U Amph Scr (test code Negative *NA*(04/12/18 = U Amph Scr) 5:22 PM) [facility] [id number] 23:22:00 Test Item Value Reference Range Interpretation Comments U Cocaine Scr (test Negative *NA*(04/12/18 code = U Cocaine Scr) 5:22 PM) [facility] [id number] 23:22:00 Test Item Value Reference Range Interpretation Comments U Opiate Scr (test Negative *NA*(04/12/18 code = U Opiate Scr) 5:22 PM) [facility] [id number] 23:22:00 Test Item Value Reference Range Interpretation Comments UDS Note (test code = See Note (04/12/18 5:22 UDS Note) PM) [facility] [id number] 23:22:00 Test Item Value Reference Range Interpretation Comments U Cannab Scr (test Negative *NA*(04/12/18 code = U Cannab Scr) 5:22 PM) [facility] [id number] 23:22:00 Test Item Value Reference Range Interpretation Comments U Phencyclidine Scr (test Negative code = U Phencyclidine *NA*(04/12/18 5:22 Scr) PM) [facility] [id number] 23:22:00 Test Item Value Reference Range Interpretation Comments U Odalys Scr (test code Negative *NA*(04/12/18 = U Odalys Scr) 5:22 PM) [facility] [id number] 23:22:00 Test Item Value Reference Range Interpretation Comments U Benzodiaz Scr (test Negative *NA*(04/12/18 code = U Benzodiaz Scr) 5:22 PM) [facility] [id number] 23:22:00 Test Item Value Reference Range Interpretation Comments U Amph Scr (test code Negative *NA*(04/12/18 = U Amph Scr) 5:22 PM) [facility] [id number] 23:22:00 Test Item Value Reference Range Interpretation Comments U Cocaine Scr (test Negative *NA*(04/12/18 code = U Cocaine Scr) 5:22 PM) [facility] [id number] 23:22:00 Test Item Value Reference Range Interpretation Comments U Opiate Scr (test Negative *NA*(04/12/18 code = U Opiate Scr) 5:22 PM) [facility] [id number] 23:22:00 Test Item Value Reference Range Interpretation Comments UDS Note (test code = See Note (04/12/18 5:22 UDS Note) PM) [facility] [id number] 23:22:00 Test Item Value Reference Range Interpretation Comments U Cannab Scr (test Negative *NA*(04/12/18 code = U Cannab Scr) 5:22 PM) [facility] [id number] 23:22:00 Test Item Value Reference Range Interpretation Comments U Phencyclidine Scr (test Negative code = U Phencyclidine *NA*(04/12/18 5:22 Scr) PM) [facility] [id number] 23:22:00 Test Item Value Reference Range Interpretation Comments U Odalys Scr (test code Negative *NA*(04/12/18 = U Odalys Scr) 5:22 PM) [facility] [id number] 23:22:00 Test Item Value Reference Range Interpretation Comments U Benzodiaz Scr (test Negative *NA*(04/12/18 code = U Benzodiaz Scr) 5:22 PM) [facility] [id number] 23:22:00 Test Item Value Reference Range Interpretation Comments U Amph Scr (test code Negative *NA*(04/12/18 = U Amph Scr) 5:22 PM) [facility] [id number] 23:22:00 Test Item Value Reference Range Interpretation Comments U Cocaine Scr (test Negative *NA*(04/12/18 code = U Cocaine Scr) 5:22 PM) [facility] [id number] 23:22:00 Test Item Value Reference Range Interpretation Comments U Opiate Scr (test Negative *NA*(04/12/18 code = U Opiate Scr) 5:22 PM) [facility] [id number] 23:22:00 Test Item Value Reference Range Interpretation Comments UDS Note (test code = See Note (04/12/18 5:22 UDS Note) PM) [facility] [id number] 23:22:00 Test Item Value Reference Range Interpretation Comments U Cannab Scr (test Negative *NA*(04/12/18 code = U Cannab Scr) 5:22 PM) [facility] [id number] 23:22:00 Test Item Value Reference Range Interpretation Comments U Phencyclidine Scr (test Negative code = U Phencyclidine *NA*(04/12/18 5:22 Scr) PM) [facility] [id number] 23:22:00 Test Item Value Reference Range Interpretation Comments U Odalys Scr (test code Negative *NA*(04/12/18 = U Odalys Scr) 5:22 PM) [facility] [id number] 23:22:00 Test Item Value Reference Range Interpretation Comments U Benzodiaz Scr (test Negative *NA*(04/12/18 code = U Benzodiaz Scr) 5:22 PM) [facility] [id number] 23:22:00 Test Item Value Reference Range Interpretation Comments U Amph Scr (test code Negative *NA*(04/12/18 = U Amph Scr) 5:22 PM) [facility] [id number] 23:22:00 Test Item Value Reference Range Interpretation Comments U Cocaine Scr (test Negative *NA*(04/12/18 code = U Cocaine Scr) 5:22 PM) [facility] [id number] 23:22:00 Test Item Value Reference Range Interpretation Comments U Opiate Scr (test Negative *NA*(04/12/18 code = U Opiate Scr) 5:22 PM) [facility] [id number] 23:22:00 Test Item Value Reference Range Interpretation Comments UDS Note (test code = See Note (04/12/18 5:22 UDS Note) PM) [facility] [id number] 23:22:00 Test Item Value Reference Range Interpretation Comments U Cannab Scr (test Negative *NA*(04/12/18 code = U Cannab Scr) 5:22 PM) [facility] [id number] 23:22:00 Test Item Value Reference Range Interpretation Comments U Phencyclidine Scr (test Negative code = U Phencyclidine *NA*(04/12/18 5:22 Scr) PM) [facility] [id number] 23:22:00 Test Item Value Reference Range Interpretation Comments U Odalys Scr (test code Negative *NA*(04/12/18 = U Odalys Scr) 5:22 PM) [facility] [id number] 23:22:00 Test Item Value Reference Range Interpretation Comments U Benzodiaz Scr (test Negative *NA*(04/12/18 code = U Benzodiaz Scr) 5:22 PM) [facility] [id number] 23:22:00 Test Item Value Reference Range Interpretation Comments U Amph Scr (test code Negative *NA*(04/12/18 = U Amph Scr) 5:22 PM) [facility] [id number] 23:22:00 Test Item Value Reference Range Interpretation Comments U Cocaine Scr (test Negative *NA*(04/12/18 code = U Cocaine Scr) 5:22 PM) [facility] [id number] 23:22:00 Test Item Value Reference Range Interpretation Comments U Opiate Scr (test Negative *NA*(04/12/18 code = U Opiate Scr) 5:22 PM) [facility] [id number] 23:22:00 Test Item Value Reference Range Interpretation Comments UDS Note (test code = See Note (04/12/18 5:22 UDS Note) PM) [facility] [id number] 23:22:00 Test Item Value Reference Range Interpretation Comments U Cannab Scr (test Negative *NA*(04/12/18 code = U Cannab Scr) 5:22 PM) [facility] [id number] 23:22:00 Test Item Value Reference Range Interpretation Comments U Phencyclidine Scr (test Negative code = U Phencyclidine *NA*(04/12/18 5:22 Scr) PM) [facility]CARDIAC [id number] 22:38:00 Test Item Value Reference Range Interpretation Comments Troponin-I (test code 0.02 See_Comment [Auto mated message] The = Troponin-I) system which g enerated this result transmit abdelrahman reference range : <=0.40. The reference r annemarie was not used to interpr et this result as gurpreet l/abnormal. [facility] ZauberAC [id number] 22:38:00 Test Item Value Reference Range Interpretation Comments Total CK (test code = Total CK) 50 12-191 [facility] [id number] 22:38:00 Test Item Value Reference Range Interpretation Comments eGFR (test code = eGFR) 120 [facility] [id number] 22:38:00 Test Item Value Reference Range Interpretation Comments AST (test code = AST) 17 See_Comment [Auto mated message] The system which ge nerated this result transmit abdelrahman reference range : <=37. The reference range was not used to interpr et this result as gurpreet l/abnormal. [facility] [id number] 22:38:00 Test Item Value Reference Range Interpretation Comments ALT (test code = ALT) 23 See_Comment [Auto mated message] The system which ge nerated this result transmit abdelrahman reference range : <=65. The reference range was not used to interpr et this result as gurpreet l/abnormal. [facility] [id number] 22:38:00 Test Item Value Reference Range Interpretation Comments Albumin Lvl (test code = Albumin Lvl) 4.0 3.5-5.0 [facility] [id number] 22:38:00 Test Item Value Reference Range Interpretation Comments Total Protein (test code = Total 7.4 6.4-8.4 Protein) [facility] [id number] 22:38:00 Test Item Value Reference Range Interpretation Comments Bili Total (test code = Bili Total) 0.3 0.2-1.3 [facility]2018-12-13 22:38:00 Test Item Value Reference Range Interpretation Comments Alk Phos (test code = Alk Phos) 35 39-136 [facility]2018-12-13 22:38:00 Test Item Value Reference Range Interpretation Comments Chloride Lvl (test code = Chloride Lvl) 103 95-109 [facility]2018-12-13 22:38:00 Test Item Value Reference Range Interpretation Comments Calcium Lvl (test code = Calcium Lvl) 9.4 8.5-10.5 [facility]2018-12-13 22:38:00 Test Item Value Reference Range Interpretation Comments CO2 (test code = CO2) 32 24-32 [facility]2018-12-13 22:38:00 Test Item Value Reference Range Interpretation Comments Potassium Lvl (test code = Potassium 4.2 3.5-5.1 Lvl) [facility]2018-12-13 22:38:00 Test Item Value Reference Range Interpretation Comments Sodium Lvl (test code = Sodium Lvl) 139 135-145 [facility]2018-12-13 22:38:00 Test Item Value Reference Range Interpretation Comments Creatinine Lvl (test code = Creatinine 0.80 0.50-1.40 Lvl) [facility]2018-12-13 22:38:00 Test Item Value Reference Range Interpretation Comments BUN (test code = BUN) 12 7-22 [facility]2018-12-13 22:38:00 Test Item Value Reference Range Interpretation Comments Glucose Lvl (test code = Glucose Lvl) 93 70-99 [facility]2018-12-13 22:38:00 Test Item Value Reference Range Interpretation Comments A/G Ratio (test code = A/G Ratio) 1.2 1 0.7-1.6 [facility]2018-12-13 22:38:00 Test Item Value Reference Range Interpretation Comments Globulin (test code = Globulin) 3.4 2.7-4.2 [facility]2018-12-13 22:38:00 Test Item Value Reference Range Interpretation Comments B/C Ratio (test code = B/C Ratio) 15 1 6-25 [facility]2018-12-13 22:38:00 Test Item Value Reference Range Interpretation Comments AGAP (test code = AGAP) 8.2 10.0-20.0 [id number] 22:38:00 Test Item Value Reference Range Interpretation Comments MCHC (test code = MCHC) 32.1 32.0-36.0 [facility] [id number] 22:38:00 Test Item Value Reference Range Interpretation Comments MCH (test code = MCH) 27.4 pg 27.0-31.0 [facility] CenterXqukbquNULIWRAJGM3268-44-08 22:38:00 Test Item Value Reference Range Interpretation Comments Platelet (test code = Platelet) 200 133-450 [facility] CenterGxykbcdTKHXVBCYYS9128-20-23 22:38:00 Test Item Value Reference Range Interpretation Comments RDW (test code = RDW) 14.4 11.5-14.5 [facility] CenterBkidjqeBITDFROUOX7968-23-59 22:38:00 Test Item Value Reference Range Interpretation Comments MPV (test code = MPV) 9.1 7.4-10.4 [facility] CenterRprlmbaATJHFKCNKQ4310-76-64 22:38:00 Test Item Value Reference Range Interpretation Comments WBC (test code = WBC) 14.0 3.7-10.4 [facility] CenterNbzohutIDCKPSUQDV9780-03-88 22:38:00 Test Item Value Reference Range Interpretation Comments RBC (test code = RBC) 5.18 4.70-6.10 [facility] CenterMpvpjkzZYJYQBXJDN9535-99-50 22:38:00 Test Item Value Reference Range Interpretation Comments Hgb (test code = Hgb) 14.2 14.0-18.0 [facility] CenterHiaexinHVNNCZECTC6532-11-18 22:38:00 Test Item Value Reference Range Interpretation Comments Hct (test code = Hct) 44.2 42.0-54.0 [facility] CenterKnnfjipWKHGTXLBKT4406-78-39 22:38:00 Test Item Value Reference Range Interpretation Comments MCV (test code = MCV) 85.3 80.0-94.0 [facility] CenterAnfemtdTNSIXLEWBC6734-63-26 22:38:00 Test Item Value Reference Range Interpretation Comments Basophils (test code = 0.2 See_Comment [Aut omated message] The Basophils) system which ge nerated this result tra nsmitted reference range : <=1.0. The reference r annemarie was not used to int erpret this result as normal/abnormal . [facility] Cent[id number] 22:38:00 Test Item Value Reference Range Interpretation Comments Eosinophils (test code = 0.1 See_Comment [A utomated message] The Eosinophils) system which ge nerated this result tra nsmitted reference range : <=4.0. The reference r annemarie was not used to int erpret this result as normal/abnormal . [facility] CenterYqtnekiBCNCKXBZQE3777-41-36 22:38:00 Test Item Value Reference Range Interpretation Comments Monocytes (test code = Monocytes) 2.7 2.0-12.0 [facility] CenterOojjskhMNCNZSPMZR1493-98-34 22:38:00 Test Item Value Reference Range Interpretation Comments Monocytes # (test code 0.4 See_Comment [Aut omated message] The = Monocytes #) system which generated this result tra nsmitted reference range : <=0.8. The reference r annemarie was not used to int erpret this result as normal/abnormal . [facility] CenterScqbdzuMTFHJXNQIG7487-31-14 22:38:00 Test Item Value Reference Range Interpretation Comments Lymphocytes # (test code = Lymphocytes 0.6 1.0-5.5 #) [facility] CenterPfeaqxnYIWVXJRXFI9625-78-88 22:38:00 Test Item Value Reference Range Interpretation Comments Neutrophils # (test code = Neutrophils 13.0 1.5-8.1 #) [facility] CenterGjohocfYWEXXMQMAU6905-88-40 22:38:00 Test Item Value Reference Range Interpretation Comments Lymphocytes (test code = Lymphocytes) 4.1 20.0-40.0 [facility] CenterCnspsiyHXYKRSZURM9961-63-78 22:38:00 Test Item Value Reference Range Interpretation Comments Eosinophils # (test code 0.0 See_Comment [A utomated message] The = Eosinophils #) system whic h generated this result tra nsmitted reference range : <=0.5. The reference r annemarie was not used to int erpret this result as normal/abnormal . [facility] CenterDjlbmgoFXYWJPUQPT9142-48-29 22:38:00 Test Item Value Reference Range Interpretation Comments Basophils # (test code 0.0 See_Comment [Aut omated message] The = Basophils #) system which generated this result tra nsmitted reference range : <=0.2. The reference r annemarie was not used to int erpret this result as normal/abnormal . [facility] LancasterHccjihmGIEJXCNRHU5893-38-18 22:38:00 Test Item Value Reference Range Interpretation Comments RBC Morph (test code = Normal (04/12/18 4:38 RBC Morph) PM) [facility]NF[facility] 22:38:00 Test Item Value Reference Range Interpretation Comments Plt Morph (test code = Normal (04/12/18 4:38 Plt Morph) PM) [facility]XshwscqAXAUNMYFHE8756-98-80 22:38:00 Test Item Value Reference Range Interpretation Comments Segs (test code = Segs) 92.9 45.0-75.0 [facility] LancasterZmamfhqNZBOOYJFRS5490-80-43 22:38:00 Test Item Value Reference Range Interpretation Comments Large Plt (test code Moderate *ABN*(04/12/18 = Large Plt) 4:38 PM) [facility]bergApp[facility] [id number] 22:38:00 Test Item Value Reference Range Interpretation Comments Troponin-I (test code 0.02 See_Comment [Auto mated message] The = Troponin-I) system which g enerated this result transmit abdelrahman reference range : <=0.40. The reference r annemarie was not used to interpr et this result as gurpreet l/abnormal. [facility] [employer] [id number] 22:38:00 Test Item Value Reference Range Interpretation Comments Total CK (test code = Total CK) 50 12-191 [facility] [id number] 22:38:00 Test Item Value Reference Range Interpretation Comments eGFR (test code = eGFR) 120 [facility] [id number] 22:38:00 Test Item Value Reference Range Interpretation Comments AST (test code = AST) 17 See_Comment [Auto mated message] The system which ge nerated this result transmit abdelrahman reference range : <=37. The reference range was not used to interpr et this result as ugrpreet l/abnormal. [facility] [id number] 22:38:00 Test Item Value Reference Range Interpretation Comments ALT (test code = ALT) 23 See_Comment [Auto mated message] The system which ge nerated this result transmit abdelrahman reference range : <=65. The reference range was not used to interpr et this result as gurpreet l/abnormal. [facility] [employer] [id number] 22:38:00 Test Item Value Reference Range Interpretation Comments Albumin Lvl (test code = Albumin Lvl) 4.0 3.5-5.0 [facility]2018-12-13 22:38:00 Test Item Value Reference Range Interpretation Comments Total Protein (test code = Total 7.4 6.4-8.4 Protein) [facility]2018-12-13 22:38:00 Test Item Value Reference Range Interpretation Comments Bili Total (test code = Bili Total) 0.3 0.2-1.3 [facility]2018-12-13 22:38:00 Test Item Value Reference Range Interpretation Comments Alk Phos (test code = Alk Phos) 35 39-136 [facility]2018-12-13 22:38:00 Test Item Value Reference Range Interpretation Comments Chloride Lvl (test code = Chloride Lvl) 103 95-109 [facility]2018-12-13 22:38:00 Test Item Value Reference Range Interpretation Comments Calcium Lvl (test code = Calcium Lvl) 9.4 8.5-10.5 [facility]2018-12-13 22:38:00 Test Item Value Reference Range Interpretation Comments CO2 (test code = CO2) 32 24-32 [facility]2018-12-13 22:38:00 Test Item Value Reference Range Interpretation Comments Potassium Lvl (test code = Potassium 4.2 3.5-5.1 Lvl) [facility]2018-12-13 22:38:00 Test Item Value Reference Range Interpretation Comments Sodium Lvl (test code = Sodium Lvl) 139 135-145 [facility]2018-12-13 22:38:00 Test Item Value Reference Range Interpretation Comments Creatinine Lvl (test code = Creatinine 0.80 0.50-1.40 Lvl) [facility]2018-12-13 22:38:00 Test Item Value Reference Range Interpretation Comments BUN (test code = BUN) 12 7-22 [facility]2018-12-13 22:38:00 Test Item Value Reference Range Interpretation Comments Glucose Lvl (test code = Glucose Lvl) 93 70-99 [facility]2018-12-13 22:38:00 Test Item Value Reference Range Interpretation Comments A/G Ratio (test code = A/G Ratio) 1.2 1 0.7-1.6 [facility]2018-12-13 22:38:00 Test Item Value Reference Range Interpretation Comments Globulin (test code = Globulin) 3.4 2.7-4.2 [facility]2018-12-13 22:38:00 Test Item Value Reference Range Interpretation Comments B/C Ratio (test code = B/C Ratio) 15 1 6-25 [facility]2018-12-13 22:38:00 Test Item Value Reference Range Interpretation Comments AGAP (test code = AGAP) 8.2 10.0-20.0 [facility] CenterXrrszsoCYUQVVTXRH9182-25-56 22:38:00 Test Item Value Reference Range Interpretation Comments MCHC (test code = MCHC) 32.1 32.0-36.0 [facility] CenterQyeznmcBHYRRWPKKA6624-42-92 22:38:00 Test Item Value Reference Range Interpretation Comments MCH (test code = MCH) 27.4 pg 27.0-31.0 [facility] CenterFvewsfoBHSDZZPAPQ8328-96-95 22:38:00 Test Item Value Reference Range Interpretation Comments Platelet (test code = Platelet) 200 133-450 [facility] CenterKdulcciDZPPCWYFFQ3579-00-24 22:38:00 Test Item Value Reference Range Interpretation Comments RDW (test code = RDW) 14.4 11.5-14.5 [facility] CenterXwhysxhJXZZFQGZOU9963-34-45 22:38:00 Test Item Value Reference Range Interpretation Comments MPV (test code = MPV) 9.1 7.4-10.4 [facility] CenterEddvypoJLUNLOLAQP0958-33-49 22:38:00 Test Item Value Reference Range Interpretation Comments WBC (test code = WBC) 14.0 3.7-10.4 [facility] CenterNismnmsYFFHPTTYMS2024-23-69 22:38:00 Test Item Value Reference Range Interpretation Comments RBC (test code = RBC) 5.18 4.70-6.10 [facility] CenterPiqygihXOBVXJKOWN7899-59-44 22:38:00 Test Item Value Reference Range Interpretation Comments Hgb (test code = Hgb) 14.2 14.0-18.0 [facility] CenterNkmmagiAVDWJYIKHP4326-84-23 22:38:00 Test Item Value Reference Range Interpretation Comments Hct (test code = Hct) 44.2 42.0-54.0 [facility] CenterBamombpWHLDKAOONR0698-77-94 22:38:00 Test Item Value Reference Range Interpretation Comments MCV (test code = MCV) 85.3 80.0-94.0 [facility] CenterQyartvmQFEVWCMEUA2882-06-49 22:38:00 Test Item Value Reference Range Interpretation Comments Basophils (test code = 0.2 See_Comment [Aut omated message] The Basophils) system which ge nerated this result tra nsmitted reference range : <=1.0. The reference r annemarie was not used to int erpret this result as normal/abnormal . [facility] CenterBmqhtflYMAKDYCSAO2934-51-80 22:38:00 Test Item Value Reference Range Interpretation Comments Eosinophils (test code = 0.1 See_Comment [A utomated message] The Eosinophils) system which ge nerated this result tra nsmitted reference range : <=4.0. The reference r annemarie was not used to int erpret this result as normal/abnormal . [facility] CenterRrfvpcuKOJCKGXLQB6404-19-94 22:38:00 Test Item Value Reference Range Interpretation Comments Monocytes (test code = Monocytes) 2.7 2.0-12.0 [facility] CenterJjpiquyUQYEDKGMHI3865-84-24 22:38:00 Test Item Value Reference Range Interpretation Comments Monocytes # (test code 0.4 See_Comment [Aut omated message] The = Monocytes #) system which generated this result tra nsmitted reference range : <=0.8. The reference r annemarie was not used to int erpret this result as normal/abnormal . [facility] CenterLjtajocTDFJUIMGTU8146-99-22 22:38:00 Test Item Value Reference Range Interpretation Comments Lymphocytes # (test code = Lymphocytes 0.6 1.0-5.5 #) [facility] CenterRbuwkvfVWTSJBVZCM1421-67-85 22:38:00 Test Item Value Reference Range Interpretation Comments Neutrophils # (test code = Neutrophils 13.0 1.5-8.1 #) [facility] CenterHhbznfyXYMCAUVACO1659-21-59 22:38:00 Test Item Value Reference Range Interpretation Comments Lymphocytes (test code = Lymphocytes) 4.1 20.0-40.0 [facility] CenterYegolqiZCNEVJBECP8194-20-50 22:38:00 Test Item Value Reference Range Interpretation Comments Eosinophils # (test code 0.0 See_Comment [A utomated message] The = Eosinophils #) system whic h generated this result tra nsmitted reference range : <=0.5. The reference r annemarie was not used to int erpret this result as normal/abnormal . [facility] LancasterHsefrobBAYANEYREM3877-42-30 22:38:00 Test Item Value Reference Range Interpretation Comments Basophils # (test code 0.0 See_Comment [Aut omated message] The = Basophils #) system which generated this result tra nsmitted reference range : <=0.2. The reference r annemarie was not used to int erpret this result as normal/abnormal . [facility] LancasterBrwnskyDZHNYFJOVX5196-63-33 22:38:00 Test Item Value Reference Range Interpretation Comments RBC Morph (test code = Normal (04/12/18 4:38 RBC Morph) PM) [facility] LancasterMxofthyXJQAQXFIMC5704-32-20 22:38:00 Test Item Value Reference Range Interpretation Comments Plt Morph (test code = Normal (04/12/18 4:38 Plt Morph) PM) [facility] LancasterZriabnaADTQYPDGIS8373-27-33 22:38:00 Test Item Value Reference Range Interpretation Comments Segs (test code = Segs) 92.9 45.0-75.0 [facility] LancasterOwrboxrVQNEKUNCPB5046-02-15 22:38:00 Test Item Value Reference Range Interpretation Comments Large Plt (test code Moderate *ABN*(04/12/18 = Large Plt) 4:38 PM) [facility] 22:38:00 Test Item Value Reference Range Interpretation Comments Troponin-I (test code 0.02 See_Comment [Auto mated message] The = Troponin-I) system which g enerated this result transmit abdelrahman reference range : <=0.40. The reference r annemarie was not used to interpr et this result as gurpreet l/abnormal. [facility] [employer] [id number] 22:38:00 Test Item Value Reference Range Interpretation Comments Total CK (test code = Total CK) 50 12-191 [facility] [employer] [id number] 22:38:00 Test Item Value Reference Range Interpretation Comments eGFR (test code = eGFR) 120 [facility] [id number] 22:38:00 Test Item Value Reference Range Interpretation Comments AST (test code = AST) 17 See_Comment [Auto mated message] The system which ge nerated this result transmit abdelrahman reference range : <=37. The reference range was not used to interpr et this result as gurpreet l/abnormal. [facility]2018-12-13 22:38:00 Test Item Value Reference Range Interpretation Comments ALT (test code = ALT) 23 See_Comment [Auto mated message] The system which ge nerated this result transmit abdelrahman reference range : <=65. The reference range was not used to interpr et this result as gurpreet l/abnormal. [facility]2018-12-13 22:38:00 Test Item Value Reference Range Interpretation Comments Albumin Lvl (test code = Albumin Lvl) 4.0 3.5-5.0 [facility]2018-12-13 22:38:00 Test Item Value Reference Range Interpretation Comments Total Protein (test code = Total 7.4 6.4-8.4 Protein) [facility]2018-12-13 22:38:00 Test Item Value Reference Range Interpretation Comments Bili Total (test code = Bili Total) 0.3 0.2-1.3 [facility]2018-12-13 22:38:00 Test Item Value Reference Range Interpretation Comments Alk Phos (test code = Alk Phos) 35 39-136 [facility]2018-12-13 22:38:00 Test Item Value Reference Range Interpretation Comments Chloride Lvl (test code = Chloride Lvl) 103 95-109 [facility]2018-12-13 22:38:00 Test Item Value Reference Range Interpretation Comments Calcium Lvl (test code = Calcium Lvl) 9.4 8.5-10.5 [facility]2018-12-13 22:38:00 Test Item Value Reference Range Interpretation Comments CO2 (test code = CO2) 32 24-32 [facility]2018-12-13 22:38:00 Test Item Value Reference Range Interpretation Comments Potassium Lvl (test code = Potassium 4.2 3.5-5.1 Lvl) [facility]2018-12-13 22:38:00 Test Item Value Reference Range Interpretation Comments Sodium Lvl (test code = Sodium Lvl) 139 135-145 [facility]2018-12-13 22:38:00 Test Item Value Reference Range Interpretation Comments Creatinine Lvl (test code = Creatinine 0.80 0.50-1.40 Lvl) [facility]2018-12-13 22:38:00 Test Item Value Reference Range Interpretation Comments BUN (test code = BUN) 12 7-22 [facility]2018-12-13 22:38:00 Test Item Value Reference Range Interpretation Comments Glucose Lvl (test code = Glucose Lvl) 93 70-99 [facility]2018-12-13 22:38:00 Test Item Value Reference Range Interpretation Comments A/G Ratio (test code = A/G Ratio) 1.2 1 0.7-1.6 [facility]2018-12-13 22:38:00 Test Item Value Reference Range Interpretation Comments Globulin (test code = Globulin) 3.4 2.7-4.2 [facility]2018-12-13 22:38:00 Test Item Value Reference Range Interpretation Comments B/C Ratio (test code = B/C Ratio) 15 1 6-25 [facility]2018-12-13 22:38:00 Test Item Value Reference Range Interpretation Comments AGAP (test code = AGAP) 8.2 10.0-20.0 [facility]FtqcukzNKVCEOFXJD1474-24-18 22:38:00 Test Item Value Reference Range Interpretation Comments MCHC (test code = MCHC) 32.1 32.0-36.0 [facility] CenterHytghiiSKBJTYNEVL4286-38-26 22:38:00 Test Item Value Reference Range Interpretation Comments MCH (test code = MCH) 27.4 pg 27.0-31.0 [facility] CenterJgcbuhcCSWIEVPIDU1428-40-68 22:38:00 Test Item Value Reference Range Interpretation Comments Platelet (test code = Platelet) 200 133-450 [facility] CenterZmkqsjpYYLPUOZZNW3111-50-37 22:38:00 Test Item Value Reference Range Interpretation Comments RDW (test code = RDW) 14.4 11.5-14.5 [facility] CenterUlsccmyYJLRVEBLKU9336-54-60 22:38:00 Test Item Value Reference Range Interpretation Comments MPV (test code = MPV) 9.1 7.4-10.4 [facility] CenterElpuhetCRLJTZBASC4760-70-26 22:38:00 Test Item Value Reference Range Interpretation Comments WBC (test code = WBC) 14.0 3.7-10.4 [facility] CenterMwewqykOAFYWKUFGV6333-97-90 22:38:00 Test Item Value Reference Range Interpretation Comments RBC (test code = RBC) 5.18 4.70-6.10 [facility] CenterPfgbzybDHRQJPFFNA9978-96-26 22:38:00 Test Item Value Reference Range Interpretation Comments Hgb (test code = Hgb) 14.2 14.0-18.0 [facility] CenterIavaxbwYUUEWWKIYX5742-09-34 22:38:00 Test Item Value Reference Range Interpretation Comments Hct (test code = Hct) 44.2 42.0-54.0 [facility] CenterHvapgodSBWAGGWOBM7864-04-08 22:38:00 Test Item Value Reference Range Interpretation Comments MCV (test code = MCV) 85.3 80.0-94.0 [facility] CenterZnlanjuSGVPACUVUK2959-52-19 22:38:00 Test Item Value Reference Range Interpretation Comments Basophils (test code = 0.2 See_Comment [Aut omated message] The Basophils) system which ge nerated this result tra nsmitted reference range : <=1.0. The reference r annemarie was not used to int erpret this result as normal/abnormal . [facility] CenterOfazhhkYHOZRDHUKF3808-56-45 22:38:00 Test Item Value Reference Range Interpretation Comments Eosinophils (test code = 0.1 See_Comment [A utomated message] The Eosinophils) system which ge nerated this result tra nsmitted reference range : <=4.0. The reference r annemarie was not used to int erpret this result as normal/abnormal . [facility] CenterHuqjyjbRLTZQICPVP3954-23-06 22:38:00 Test Item Value Reference Range Interpretation Comments Monocytes (test code = Monocytes) 2.7 2.0-12.0 [facility] CenterIgmejcvEUGBMPWGCD3589-78-59 22:38:00 Test Item Value Reference Range Interpretation Comments Monocytes # (test code 0.4 See_Comment [Aut omated message] The = Monocytes #) system which generated this result tra nsmitted reference range : <=0.8. The reference r annemarie was not used to int erpret this result as normal/abnormal . [facility] CenterLaxponkHWXNQBDKPM6842-14-35 22:38:00 Test Item Value Reference Range Interpretation Comments Lymphocytes # (test code = Lymphocytes 0.6 1.0-5.5 #) [facility] CenterMrjqrvaBJHBMVKPOS3156-39-77 22:38:00 Test Item Value Reference Range Interpretation Comments Neutrophils # (test code = Neutrophils 13.0 1.5-8.1 #) [facility]RbkkwrsNECJSRAIEV0632-28-61 22:38:00 Test Item Value Reference Range Interpretation Comments Lymphocytes (test code = Lymphocytes) 4.1 20.0-40.0 [facility] HealthGbqnrhfSOWVMOSLUI4910-51-55 22:38:00 Test Item Value Reference Range Interpretation Comments Eosinophils # (test code 0.0 See_Comment [A utomated message] The = Eosinophils #) system whic h generated this result tra nsmitted reference range : <=0.5. The reference r annemarie was not used to int erpret this result as normal/abnormal . [facility] CenterSdkjijqYFPJDZZDDM2944-53-17 22:38:00 Test Item Value Reference Range Interpretation Comments Basophils # (test code 0.0 See_Comment [Aut omated message] The = Basophils #) system which generated this result tra nsmitted reference range : <=0.2. The reference r annemarie was not used to int erpret this result as normal/abnormal . [facility] HealthOtwmmfgPPXWZAVZTN8089-63-16 22:38:00 Test Item Value Reference Range Interpretation Comments RBC Morph (test code = Normal (04/12/18 4:38 RBC Morph) PM) [facility] CenterVedcavjBSETQRCTEP4369-70-92 22:38:00 Test Item Value Reference Range Interpretation Comments Plt Morph (test code = Normal (04/12/18 4:38 Plt Morph) PM) [facility] CenterWqlswzhITNCCWTLQK0583-78-29 22:38:00 Test Item Value Reference Range Interpretation Comments Segs (test code = Segs) 92.9 45.0-75.0 [facility] HealthKjdnzofSVOYSYSLMW1175-86-35 22:38:00 Test Item Value Reference Range Interpretation Comments Large Plt (test code Moderate *ABN*(04/12/18 = Large Plt) 4:38 PM) [facility] [id number] 22:38:00 Test Item Value Reference Range Interpretation Comments Troponin-I (test code 0.02 See_Comment [Auto mated message] The = Troponin-I) system which g enerated this result transmit abdelrahman reference range : <=0.40. The reference r annemarie was not used to interpr et this result as gurpreet l/abnormal. [facility] FRPMZCV3595-17-78 22:38:00 Test Item Value Reference Range Interpretation Comments Total CK (test code = Total CK) 50 12-191 [facility]2018-12-13 22:38:00 Test Item Value Reference Range Interpretation Comments eGFR (test code = eGFR) 120 [facility]2018-12-13 22:38:00 Test Item Value Reference Range Interpretation Comments AST (test code = AST) 17 See_Comment [Auto mated message] The system which ge nerated this result transmit abdelrahman reference range : <=37. The reference range was not used to interpr et this result as gurpreet l/abnormal. [facility]2018-12-13 22:38:00 Test Item Value Reference Range Interpretation Comments ALT (test code = ALT) 23 See_Comment [Auto mated message] The system which ge nerated this result transmit abdelrahman reference range : <=65. The reference range was not used to interpr et this result as gurpreet l/abnormal. [facility]2018-12-13 22:38:00 Test Item Value Reference Range Interpretation Comments Albumin Lvl (test code = Albumin Lvl) 4.0 3.5-5.0 [facility]2018-12-13 22:38:00 Test Item Value Reference Range Interpretation Comments Total Protein (test code = Total 7.4 6.4-8.4 Protein) [facility]2018-12-13 22:38:00 Test Item Value Reference Range Interpretation Comments Bili Total (test code = Bili Total) 0.3 0.2-1.3 [facility]2018-12-13 22:38:00 Test Item Value Reference Range Interpretation Comments Alk Phos (test code = Alk Phos) 35 39-136 [facility]2018-12-13 22:38:00 Test Item Value Reference Range Interpretation Comments Chloride Lvl (test code = Chloride Lvl) 103 95-109 [facility]2018-12-13 22:38:00 Test Item Value Reference Range Interpretation Comments Calcium Lvl (test code = Calcium Lvl) 9.4 8.5-10.5 [facility]2018-12-13 22:38:00 Test Item Value Reference Range Interpretation Comments CO2 (test code = CO2) 32 24-32 [facility]2018-12-13 22:38:00 Test Item Value Reference Range Interpretation Comments Potassium Lvl (test code = Potassium 4.2 3.5-5.1 Lvl) [facility]2018-12-13 22:38:00 Test Item Value Reference Range Interpretation Comments Sodium Lvl (test code = Sodium Lvl) 139 135-145 [facility]2018-12-13 22:38:00 Test Item Value Reference Range Interpretation Comments Creatinine Lvl (test code = Creatinine 0.80 0.50-1.40 Lvl) [facility]2018-12-13 22:38:00 Test Item Value Reference Range Interpretation Comments BUN (test code = BUN) 12 7-22 [facility]2018-12-13 22:38:00 Test Item Value Reference Range Interpretation Comments Glucose Lvl (test code = Glucose Lvl) 93 70-99 [facility]2018-12-13 22:38:00 Test Item Value Reference Range Interpretation Comments A/G Ratio (test code = A/G Ratio) 1.2 1 0.7-1.6 [facility]2018-12-13 22:38:00 Test Item Value Reference Range Interpretation Comments Globulin (test code = Globulin) 3.4 2.7-4.2 [facility]2018-12-13 22:38:00 Test Item Value Reference Range Interpretation Comments B/C Ratio (test code = B/C Ratio) 15 1 6-25 [facility]2018-12-13 22:38:00 Test Item Value Reference Range Interpretation Comments AGAP (test code = AGAP) 8.2 10.0-20.0 [facility] CenterJtabjqkWKRWTKAQXB8344-47-38 22:38:00 Test Item Value Reference Range Interpretation Comments MCHC (test code = MCHC) 32.1 32.0-36.0 [facility] CenterEnzzvezFDAVTBJYQJ4285-46-00 22:38:00 Test Item Value Reference Range Interpretation Comments MCH (test code = MCH) 27.4 pg 27.0-31.0 [facility] CenterNcqqjrvOMIFOQEWYA2189-82-28 22:38:00 Test Item Value Reference Range Interpretation Comments Platelet (test code = Platelet) 200 133-450 [facility] CenterBahptzbTNPYYNSUDQ7221-03-03 22:38:00 Test Item Value Reference Range Interpretation Comments RDW (test code = RDW) 14.4 11.5-14.5 [facility] CenterJgpidpbHOUHXWNPQV7453-55-10 22:38:00 Test Item Value Reference Range Interpretation Comments MPV (test code = MPV) 9.1 7.4-10.4 [facility] CenterFtiejrrJCESFRKVEP1266-98-98 22:38:00 Test Item Value Reference Range Interpretation Comments WBC (test code = WBC) 14.0 3.7-10.4 [facility] CenterSvgziczTYCMDFICVP7662-16-24 22:38:00 Test Item Value Reference Range Interpretation Comments RBC (test code = RBC) 5.18 4.70-6.10 [facility] CenterQiemicxQUHQMQAIUJ2125-48-24 22:38:00 Test Item Value Reference Range Interpretation Comments Hgb (test code = Hgb) 14.2 14.0-18.0 [facility] CenterHyamveoCIJASBGTXL3637-63-16 22:38:00 Test Item Value Reference Range Interpretation Comments Hct (test code = Hct) 44.2 42.0-54.0 [facility] CenterIzzpbejZFVEGBCLNZ3553-28-45 22:38:00 Test Item Value Reference Range Interpretation Comments MCV (test code = MCV) 85.3 80.0-94.0 [facility] CenterDkngiudIRFZIRQFVW3832-62-41 22:38:00 Test Item Value Reference Range Interpretation Comments Basophils (test code = 0.2 See_Comment [Aut omated message] The Basophils) system which ge nerated this result tra nsmitted reference range : <=1.0. The reference r annemarie was not used to int erpret this result as normal/abnormal . [facility] CenterDsjlqzoPKGPOTAKUY2446-92-19 22:38:00 Test Item Value Reference Range Interpretation Comments Eosinophils (test code = 0.1 See_Comment [A utomated message] The Eosinophils) system which ge nerated this result tra nsmitted reference range : <=4.0. The reference r annemarie was not used to int erpret this result as normal/abnormal . [facility] CenterIazuiqeAZDZTLIFVZ0729-33-21 22:38:00 Test Item Value Reference Range Interpretation Comments Monocytes (test code = Monocytes) 2.7 2.0-12.0 [facility] CenterKqpuxrsQOZMOTCIPN9624-21-06 22:38:00 Test Item Value Reference Range Interpretation Comments Monocytes # (test code 0.4 See_Comment [Aut omated message] The = Monocytes #) system which generated this result tra nsmitted reference range : <=0.8. The reference r annemarie was not used to int erpret this result as normal/abnormal . [facility] CenterPghladxLPRPZUQXFE7411-04-18 22:38:00 Test Item Value Reference Range Interpretation Comments Lymphocytes # (test code = Lymphocytes 0.6 1.0-5.5 #) [facility] CenterPyhnbkgKTCJETXTYD0098-59-15 22:38:00 Test Item Value Reference Range Interpretation Comments Neutrophils # (test code = Neutrophils 13.0 1.5-8.1 #) [facility] CenterHmnvbxaNYHHBIVLUH3684-85-78 22:38:00 Test Item Value Reference Range Interpretation Comments Lymphocytes (test code = Lymphocytes) 4.1 20.0-40.0 [facility] CenterJymnwbtWJTQWEQEHN1439-47-83 22:38:00 Test Item Value Reference Range Interpretation Comments Eosinophils # (test code 0.0 See_Comment [A utomated message] The = Eosinophils #) system whic h generated this result tra nsmitted reference range : <=0.5. The reference r annemarie was not used to int erpret this result as normal/abnormal . [facility] CenterJlyhiknUIBFVKXSJA5850-61-43 22:38:00 Test Item Value Reference Range Interpretation Comments Basophils # (test code 0.0 See_Comment [Aut omated message] The = Basophils #) system which generated this result tra nsmitted reference range : <=0.2. The reference r annemarie was not used to int erpret this result as normal/abnormal . [facility] CenterVowynprAIWALIEKKQ2774-42-79 22:38:00 Test Item Value Reference Range Interpretation Comments RBC Morph (test code = Normal (04/12/18 4:38 RBC Morph) PM) [facility] CenterGclhevoYZCYVOYQLX4356-87-09 22:38:00 Test Item Value Reference Range Interpretation Comments Plt Morph (test code = Normal (04/12/18 4:38 Plt Morph) PM) [facility] CenterWbsvujrBZYRGDSMPW8697-13-38 22:38:00 Test Item Value Reference Range Interpretation Comments Segs (test code = Segs) 92.9 45.0-75.0 [facility] CenterOwwqblrMXSBLQWPHY0761-04-21 22:38:00 Test Item Value Reference Range Interpretation Comments Large Plt (test code Moderate *ABN*(04/12/18 = Large Plt) 4:38 PM) [facility] [employer] [id number] 22:38:00 Test Item Value Reference Range Interpretation Comments Troponin-I (test code 0.02 See_Comment [Auto mated message] The = Troponin-I) system which g enerated this result transmit abdelrahman reference range : <=0.40. The reference r annemarie was not used to interpr et this result as gurpreet l/abnormal. [facility] [employer] BDOGHWC8839-44-09 22:38:00 Test Item Value Reference Range Interpretation Comments Total CK (test code = Total CK) 50 12-191 [facility] [employer] [id number] 22:38:00 Test Item Value Reference Range Interpretation Comments eGFR (test code = eGFR) 120 [facility] [employer] [id number] 22:38:00 Test Item Value Reference Range Interpretation Comments AST (test code = AST) 17 See_Comment [Auto mated message] The system which ge nerated this result transmit abdelrahman reference range : <=37. The reference range was not used to interpr et this result as gurpreet l/abnormal. [facility] [employer] [id number] 22:38:00 Test Item Value Reference Range Interpretation Comments ALT (test code = ALT) 23 See_Comment [Auto mated message] The system which ge nerated this result transmit adbelrahman reference range : <=65. The reference range was not used to interpr et this result as gurpreet l/abnormal. [facility] [employer] [id number] 22:38:00 Test Item Value Reference Range Interpretation Comments Albumin Lvl (test code = Albumin Lvl) 4.0 3.5-5.0 [facility] [employer] [id number] 22:38:00 Test Item Value Reference Range Interpretation Comments Total Protein (test code = Total 7.4 6.4-8.4 Protein) [facility] [employer] [id number] 22:38:00 Test Item Value Reference Range Interpretation Comments Bili Total (test code = Bili Total) 0.3 0.2-1.3 [facility] [employer] [id number] 22:38:00 Test Item Value Reference Range Interpretation Comments Alk Phos (test code = Alk Phos) 35 39-136 [facility] [employer] [id number] 22:38:00 Test Item Value Reference Range Interpretation Comments Chloride Lvl (test code = Chloride Lvl) 103 95-109 [facility]2018-12-13 22:38:00 Test Item Value Reference Range Interpretation Comments Calcium Lvl (test code = Calcium Lvl) 9.4 8.5-10.5 [facility]2018-12-13 22:38:00 Test Item Value Reference Range Interpretation Comments CO2 (test code = CO2) 32 24-32 [facility]2018-12-13 22:38:00 Test Item Value Reference Range Interpretation Comments Potassium Lvl (test code = Potassium 4.2 3.5-5.1 Lvl) [facility]2018-12-13 22:38:00 Test Item Value Reference Range Interpretation Comments Sodium Lvl (test code = Sodium Lvl) 139 135-145 [facility]2018-12-13 22:38:00 Test Item Value Reference Range Interpretation Comments Creatinine Lvl (test code = Creatinine 0.80 0.50-1.40 Lvl) [facility]2018-12-13 22:38:00 Test Item Value Reference Range Interpretation Comments BUN (test code = BUN) 12 7-22 [facility]2018-12-13 22:38:00 Test Item Value Reference Range Interpretation Comments Glucose Lvl (test code = Glucose Lvl) 93 70-99 [facility]2018-12-13 22:38:00 Test Item Value Reference Range Interpretation Comments A/G Ratio (test code = A/G Ratio) 1.2 1 0.7-1.6 [facility]2018-12-13 22:38:00 Test Item Value Reference Range Interpretation Comments Globulin (test code = Globulin) 3.4 2.7-4.2 [facility]2018-12-13 22:38:00 Test Item Value Reference Range Interpretation Comments B/C Ratio (test code = B/C Ratio) 15 1 6-25 [facility]2018-12-13 22:38:00 Test Item Value Reference Range Interpretation Comments AGAP (test code = AGAP) 8.2 10.0-20.0 [facility] CenterSjrnmdpQTRDEISZRW0104-33-86 22:38:00 Test Item Value Reference Range Interpretation Comments MCHC (test code = MCHC) 32.1 32.0-36.0 [facility] CenterDshbrlrGLNEAGQQTN5590-09-59 22:38:00 Test Item Value Reference Range Interpretation Comments MCH (test code = MCH) 27.4 pg 27.0-31.0 [facility] CenterWediifiCAPQGITTLK1930-58-77 22:38:00 Test Item Value Reference Range Interpretation Comments Platelet (test code = Platelet) 200 133-450 [facility] CenterXxbaxokPHHYDZXXUU7980-09-04 22:38:00 Test Item Value Reference Range Interpretation Comments RDW (test code = RDW) 14.4 11.5-14.5 [facility] CenterCxzawyxBUSETNZWWE5162-66-67 22:38:00 Test Item Value Reference Range Interpretation Comments MPV (test code = MPV) 9.1 7.4-10.4 [facility] CenterKhkrunyHBEVUTBYOO4771-84-75 22:38:00 Test Item Value Reference Range Interpretation Comments WBC (test code = WBC) 14.0 3.7-10.4 [facility] CenterBssdnfvXGUTSHKBGA6525-37-12 22:38:00 Test Item Value Reference Range Interpretation Comments RBC (test code = RBC) 5.18 4.70-6.10 [facility] CenterRffvlwqJPTAGQMHIA3207-21-55 22:38:00 Test Item Value Reference Range Interpretation Comments Hgb (test code = Hgb) 14.2 14.0-18.0 [facility] CenterQrznjrtWNZHAFGPIQ5855-14-80 22:38:00 Test Item Value Reference Range Interpretation Comments Hct (test code = Hct) 44.2 42.0-54.0 [facility] CenterEfivunmLFSULUNJVV8444-78-30 22:38:00 Test Item Value Reference Range Interpretation Comments MCV (test code = MCV) 85.3 80.0-94.0 [place] [id number] 22:38:00 Test Item Value Reference Range Interpretation Comments Basophils (test code = 0.2 See_Comment [Aut omated message] The Basophils) system which ge nerated this result tra nsmitted reference range : <=1.0. The reference r annemarie was not used to int erpret this result as normal/abnormal . [facility] CenterUprebyzKUAVTRRAUX4360-37-01 22:38:00 Test Item Value Reference Range Interpretation Comments Eosinophils (test code = 0.1 See_Comment [A utomated message] The Eosinophils) system which ge nerated this result tra nsmitted reference range : <=4.0. The reference r annemarie was not used to int erpret this result as normal/abnormal . [facility] CenterCarjzdbATHQIMEKPF6747-00-93 22:38:00 Test Item Value Reference Range Interpretation Comments Monocytes (test code = Monocytes) 2.7 2.0-12.0 [facility] CenterJzmpkykJKJDTMHVEN3233-61-96 22:38:00 Test Item Value Reference Range Interpretation Comments Monocytes # (test code 0.4 See_Comment [Aut omated message] The = Monocytes #) system which generated this result tra nsmitted reference range : <=0.8. The reference r annemarie was not used to int erpret this result as normal/abnormal . [facility] CenterGcwjqpqZIYUBVVGGD2768-51-46 22:38:00 Test Item Value Reference Range Interpretation Comments Lymphocytes # (test code = Lymphocytes 0.6 1.0-5.5 #) [facility] CenterJftuxjvLRLAICIFYF9016-25-90 22:38:00 Test Item Value Reference Range Interpretation Comments Neutrophils # (test code = Neutrophils 13.0 1.5-8.1 #) [facility] CenterOntelxvAEHRHLVWDZ7275-41-09 22:38:00 Test Item Value Reference Range Interpretation Comments Lymphocytes (test code = Lymphocytes) 4.1 20.0-40.0 [facility] CenterBymptwfKUHFQHSYOM7514-00-93 22:38:00 Test Item Value Reference Range Interpretation Comments Eosinophils # (test code 0.0 See_Comment [A utomated message] The = Eosinophils #) system [facility] generated this result tra nsmitted reference range : <=0.5. The reference r annemarie was not used to int erpret this result as normal/abnormal . [facility] CenterZutydlfUNHPZIPMXN3094-04-67 22:38:00 Test Item Value Reference Range Interpretation Comments Basophils # (test code 0.0 See_Comment [Aut omated message] The = Basophils #) system which generated this result tra nsmitted reference range : <=0.2. The reference r annemarie was not used to int erpret this result as normal/abnormal . [facility] CenterDezlcyeXPHYECNCQP7054-36-49 22:38:00 Test Item Value Reference Range Interpretation Comments RBC Morph (test code = Normal (04/12/18 4:38 RBC Morph) PM) [place] [id number] 22:38:00 Test Item Value Reference Range Interpretation Comments Plt Morph (test code = Normal (04/12/18 4:38 Plt Morph) PM) [facility] HealthWjdxxicMKREFLPKIR5536-55-80 22:38:00 Test Item Value Reference Range Interpretation Comments Segs (test code = Segs) 92.9 45.0-75.0 [facility] CenterSsvjohcDUEIGRXDPA8071-79-93 22:38:00 Test Item Value Reference Range Interpretation Comments Large Plt (test code Moderate *ABN*(04/12/18 = Large Plt) 4:38 PM) [facility] [id number] 22:38:00 Test Item Value Reference Range Interpretation Comments Troponin-I (test code 0.02 See_Comment [Auto mated message] The = Troponin-I) system which g enerated this result transmit abdelrahman reference range : <=0.40. The reference r annemarie was not used to interpr et this result as gurpreet l/abnormal. [facility]bergCore [facility]osticsJ[facility] [id number] 22:38:00 Test Item Value Reference Range Interpretation Comments Total CK (test code = Total CK) 50 12-191 [facility] [id number] 22:38:00 Test Item Value Reference Range Interpretation Comments eGFR (test code = eGFR) 120 [facility] [id number] 22:38:00 Test Item Value Reference Range Interpretation Comments AST (test code = AST) 17 See_Comment [Auto mated message] The system which ge nerated this result transmit abdelrahman reference range : <=37. The reference range was not used to interpr et this result as gurpreet l/abnormal. [facility] LancasterHalf Off DepotXXEWY3946-80-77 22:38:00 Test Item Value Reference Range Interpretation Comments ALT (test code = ALT) 23 See_Comment [Auto mated message] The system which ge nerated this result transmit abdelrahman reference range : <=65. The reference range was not used to interpr et this result as gurpreet l/abnormal. [facility] KlebergPrivacy NetworksFRUCZ1873-42-04 22:38:00 Test Item Value Reference Range Interpretation Comments Albumin Lvl (test code = Albumin Lvl) 4.0 3.5-5.0 [facility] KlebergPrivacy NetworksZPFCU7153-30-35 22:38:00 Test Item Value Reference Range Interpretation Comments Total Protein (test code = Total 7.4 6.4-8.4 Protein) [facility]2018-12-13 22:38:00 Test Item Value Reference Range Interpretation Comments Bili Total (test code = Bili Total) 0.3 0.2-1.3 [facility]2018-12-13 22:38:00 Test Item Value Reference Range Interpretation Comments Alk Phos (test code = Alk Phos) 35 39-136 [facility]2018-12-13 22:38:00 Test Item Value Reference Range Interpretation Comments Chloride Lvl (test code = Chloride Lvl) 103 95-109 [facility] [facility]00 Test Item Value Reference Range Interpretation Comments Calcium Lvl (test code = Calcium Lvl) 9.4 8.5-10.5 [facility]2018-12-13 22:38:00 Test Item Value Reference Range Interpretation Comments CO2 (test code = CO2) 32 24-32 [facility]2018-12-13 22:38:00 Test Item Value Reference Range Interpretation Comments Potassium Lvl (test code = Potassium 4.2 3.5-5.1 Lvl) [facility]2018-12-13 22:38:00 Test Item Value Reference Range Interpretation Comments Sodium Lvl (test code = Sodium Lvl) 139 135-145 [facility]2018-12-13 22:38:00 Test Item Value Reference Range Interpretation Comments Creatinine Lvl (test code = Creatinine 0.80 0.50-1.40 Lvl) [facility]2018-12-13 22:38:00 Test Item Value Reference Range Interpretation Comments BUN (test code = BUN) 12 7-22 [facility]2018-12-13 22:38:00 Test Item Value Reference Range Interpretation Comments Glucose Lvl (test code = Glucose Lvl) 93 70-99 [facility]2018-12-13 22:38:00 Test Item Value Reference Range Interpretation Comments A/G Ratio (test code = A/G Ratio) 1.2 1 0.7-1.6 [facility]2018-12-13 22:38:00 Test Item Value Reference Range Interpretation Comments Globulin (test code = Globulin) 3.4 2.7-4.2 [facility]2018-12-13 22:38:00 Test Item Value Reference Range Interpretation Comments B/C Ratio (test code = B/C Ratio) 15 1 6-25 [facility] [id number] 22:38:00 Test Item Value Reference Range Interpretation Comments AGAP (test code = AGAP) 8.2 10.0-20.0 [facility]XircolaADEHGDYZEG4848-84-51 22:38:00 Test Item Value Reference Range Interpretation Comments MCHC (test code = MCHC) 32.1 32.0-36.0 [facility] CenterVhhvttxQQVZYCYFHC1300-37-74 22:38:00 Test Item Value Reference Range Interpretation Comments MCH (test code = MCH) 27.4 pg 27.0-31.0 [facility] CenterJmfsdzaDNEPIFNFZC9322-26-76 22:38:00 Test Item Value Reference Range Interpretation Comments Platelet (test code = Platelet) 200 133-450 [facility] CenterOdeagfgAJDTQRUEVO7337-03-74 22:38:00 Test Item Value Reference Range Interpretation Comments RDW (test code = RDW) 14.4 11.5-14.5 [facility] CenterEjekgwzVBLXKAWUKU9740-29-49 22:38:00 Test Item Value Reference Range Interpretation Comments MPV (test code = MPV) 9.1 7.4-10.4 [facility] CenterIffbybfEEYZMXGVOL1195-38-34 22:38:00 Test Item Value Reference Range Interpretation Comments WBC (test code = WBC) 14.0 3.7-10.4 [facility] CenterVibnnknAASOQWQXPI6560-58-24 22:38:00 Test Item Value Reference Range Interpretation Comments RBC (test code = RBC) 5.18 4.70-6.10 [facility] CenterKvxzbdsYZGAIUGMNV8772-01-96 22:38:00 Test Item Value Reference Range Interpretation Comments Hgb (test code = Hgb) 14.2 14.0-18.0 [facility] CenterWcihitgTNJGGYJQXC2968-39-16 22:38:00 Test Item Value Reference Range Interpretation Comments Hct (test code = Hct) 44.2 42.0-54.0 [facility] CenterJopoivqZWMTVSGFUK5614-79-65 22:38:00 Test Item Value Reference Range Interpretation Comments MCV (test code = MCV) 85.3 80.0-94.0 [facility] CenterPojyzymHAEEMLUNOT9510-52-70 22:38:00 Test Item Value Reference Range Interpretation Comments Basophils (test code = 0.2 See_Comment [Aut omated message] The Basophils) system which ge nerated this result tra nsmitted reference range : <=1.0. The reference r annemarie was not used to int erpret this result as normal/abnormal . [facility] CenterOotyrutPEZZFCHFVY6395-81-51 22:38:00 Test Item Value Reference Range Interpretation Comments Eosinophils (test code = 0.1 See_Comment [A utomated message] The Eosinophils) system which ge nerated this result tra nsmitted reference range : <=4.0. The reference r annemarie was not used to int erpret this result as normal/abnormal . [facility] CenterRlrcmgtRXGOMHWMJY4570-71-81 22:38:00 Test Item Value Reference Range Interpretation Comments Monocytes (test code = Monocytes) 2.7 2.0-12.0 [facility] CenterEyfhhuyUPTNDCTXFI9291-22-68 22:38:00 Test Item Value Reference Range Interpretation Comments Monocytes # (test code 0.4 See_Comment [Aut omated message] The = Monocytes #) system which generated this result tra nsmitted reference range : <=0.8. The reference r annemarie was not used to int erpret this result as normal/abnormal . [facility] CenterBugpzhmHLHUEPOQUV9935-83-80 22:38:00 Test Item Value Reference Range Interpretation Comments Lymphocytes # (test code = Lymphocytes 0.6 1.0-5.5 #) [facility] CenterWfbqjxjITFUWAMFYO1835-46-45 22:38:00 Test Item Value Reference Range Interpretation Comments Neutrophils # (test code = Neutrophils 13.0 1.5-8.1 #) [facility] CenterAjlykfeTEKGMXQDBX9633-18-82 22:38:00 Test Item Value Reference Range Interpretation Comments Lymphocytes (test code = Lymphocytes) 4.1 20.0-40.0 [facility] CenterPlftzpdDJGDUEJNHR2979-34-10 22:38:00 Test Item Value Reference Range Interpretation Comments Eosinophils # (test code 0.0 See_Comment [A utomated message] The = Eosinophils #) system [facility] h generated this result tra nsmitted reference range : <=0.5. The reference r annemarie was not used to int erpret this result as normal/abnormal . [facility] CenterKoreuzmQCWDLBWIFX9102-30-55 22:38:00 Test Item Value Reference Range Interpretation Comments Basophils # (test code 0.0 See_Comment [Aut omated message] The = Basophils #) system which generated this result tra nsmitted reference range : <=0.2. The reference r annemarie was not used to int erpret this result as normal/abnormal . [facility]EzgxzowZTKKAERRMQ5672-02-90 22:38:00 Test Item Value Reference Range Interpretation Comments RBC Morph (test code = Normal (04/12/18 4:38 RBC Morph) PM) [facility] LancasterZrfbnuaFYVWCPXBBO5354-10-63 22:38:00 Test Item Value Reference Range Interpretation Comments Plt Morph (test code = Normal (04/12/18 4:38 Plt Morph) PM) [facility] LancasterAxqokyoCXACELLOOS3660-71-69 22:38:00 Test Item Value Reference Range Interpretation Comments Segs (test code = Segs) 92.9 45.0-75.0 [facility] LancasterOunzvlpTRHWSJKOMF7334-25-81 22:38:00 Test Item Value Reference Range Interpretation Comments Large Plt (test code Moderate *ABN*(04/12/18 = Large Plt) 4:38 PM) [facility]2018-[facility]-13 22:38:00 Test Item Value Reference Range Interpretation Comments Troponin-I (test code 0.02 See_Comment [Auto mated message] The = Troponin-I) system which g enerated this result transmit abdelrahman reference range : <=0.40. The reference r annemarie was not used to interpr et this result as gurpreet l/abnormal. [facility] [employer]2018-12-13 22:38:00 Test Item Value Reference Range Interpretation Comments Total CK (test code = Total CK) 50 12-191 [facility] [employer]2018-12-13 22:38:00 Test Item Value Reference Range Interpretation Comments eGFR (test code = eGFR) 120 [facility] [employer]2018-12-13 22:38:00 Test Item Value Reference Range Interpretation Comments AST (test code = AST) 17 See_Comment [Auto mated message] The system which ge nerated this result transmit abdelrahman reference range : <=37. The reference range was not used to interpr et this result as gurpreet l/abnormal. [employer]2018-12-13 22:38:00 Test Item Value Reference Range Interpretation Comments ALT (test code = ALT) 23 See_Comment [Auto mated message] The system which ge nerated this result transmit abdelrahman reference range : <=65. The reference range was not used to interpr et this result as gurpreet l/abnormal. [facility]2018-12-13 22:38:00 Test Item Value Reference Range Interpretation Comments Albumin Lvl (test code = Albumin Lvl) 4.0 3.5-5.0 [facility]2018-12-13 22:38:00 Test Item Value Reference Range Interpretation Comments Total Protein (test code = Total 7.4 6.4-8.4 Protein) [facility]2018-12-13 22:38:00 Test Item Value Reference Range Interpretation Comments Bili Total (test code = Bili Total) 0.3 0.2-1.3 [facility]2018-12-13 22:38:00 Test Item Value Reference Range Interpretation Comments Alk Phos (test code = Alk Phos) 35 39-136 [facility]2018-12-13 22:38:00 Test Item Value Reference Range Interpretation Comments Chloride Lvl (test code = Chloride Lvl) 103 95-109 [facility]2018-12-13 22:38:00 Test Item Value Reference Range Interpretation Comments Calcium Lvl (test code = Calcium Lvl) 9.4 8.5-10.5 [facility]2018-12-13 22:38:00 Test Item Value Reference Range Interpretation Comments CO2 (test code = CO2) 32 24-32 [facility]2018-12-13 22:38:00 Test Item Value Reference Range Interpretation Comments Potassium Lvl (test code = Potassium 4.2 3.5-5.1 Lvl) [facility]2018-12-13 22:38:00 Test Item Value Reference Range Interpretation Comments Sodium Lvl (test code = Sodium Lvl) 139 135-145 [facility]2018-12-13 22:38:00 Test Item Value Reference Range Interpretation Comments Creatinine Lvl (test code = Creatinine 0.80 0.50-1.40 Lvl) [facility]2018-12-13 22:38:00 Test Item Value Reference Range Interpretation Comments BUN (test code = BUN) 12 7-22 [facility]2018-12-13 22:38:00 Test Item Value Reference Range Interpretation Comments Glucose Lvl (test code = Glucose Lvl) 93 70-99 [facility]2018-12-13 22:38:00 Test Item Value Reference Range Interpretation Comments A/G Ratio (test code = A/G Ratio) 1.2 1 0.7-1.6 [facility]2018-12-13 22:38:00 Test Item Value Reference Range Interpretation Comments Globulin (test code = Globulin) 3.4 2.7-4.2 [facility]2018-12-13 22:38:00 Test Item Value Reference Range Interpretation Comments B/C Ratio (test code = B/C Ratio) 15 1 6-25 [facility]2018-12-13 22:38:00 Test Item Value Reference Range Interpretation Comments AGAP (test code = AGAP) 8.2 10.0-20.0 [facility] CenterXslczwiJZQOHAJJIF2057-25-10 22:38:00 Test Item Value Reference Range Interpretation Comments MCHC (test code = MCHC) 32.1 32.0-36.0 [facility] CenterOvvhypwTJSVUCIKFX7525-72-63 22:38:00 Test Item Value Reference Range Interpretation Comments MCH (test code = MCH) 27.4 pg 27.0-31.0 [facility] CenterXzsmxzqXKBHJPTTVI1084-66-19 22:38:00 Test Item Value Reference Range Interpretation Comments Platelet (test code = Platelet) 200 133-450 [facility] CenterIwneiszVJWZDETWRN2876-29-77 22:38:00 Test Item Value Reference Range Interpretation Comments RDW (test code = RDW) 14.4 11.5-14.5 [facility] CenterAtykbdpLTSHLXVALZ1415-90-64 22:38:00 Test Item Value Reference Range Interpretation Comments MPV (test code = MPV) 9.1 7.4-10.4 [facility] CenterXztnwjsJIWHXOLZRA8444-91-73 22:38:00 Test Item Value Reference Range Interpretation Comments WBC (test code = WBC) 14.0 3.7-10.4 [facility] CenterVbwadifBRVEMFXJHV0972-80-41 22:38:00 Test Item Value Reference Range Interpretation Comments RBC (test code = RBC) 5.18 4.70-6.10 [facility] CenterYyyllhjNIZEYPTJBI1796-41-33 22:38:00 Test Item Value Reference Range Interpretation Comments Hgb (test code = Hgb) 14.2 14.0-18.0 [facility] CenterVulcyitNOZPZEWHUR8369-84-45 22:38:00 Test Item Value Reference Range Interpretation Comments Hct (test code = Hct) 44.2 42.0-54.0 [facility] CenterHjbyangGBNXCMEWZX8837-04-15 22:38:00 Test Item Value Reference Range Interpretation Comments MCV (test code = MCV) 85.3 80.0-94.0 [facility] CenterEfxtudpEEPDGJOTYF0498-63-06 22:38:00 Test Item Value Reference Range Interpretation Comments Basophils (test code = 0.2 See_Comment [Aut omated message] The Basophils) system which ge nerated this result tra nsmitted reference range : <=1.0. The reference r annemarie was not used to int erpret this result as normal/abnormal . [facility] CenterPinribgGAVFZFCCIQ6753-16-50 22:38:00 Test Item Value Reference Range Interpretation Comments Eosinophils (test code = 0.1 See_Comment [A utomated message] The Eosinophils) system which ge nerated this result tra nsmitted reference range : <=4.0. The reference r annemarie was not used to int erpret this result as normal/abnormal . [facility] CenterFjvfwgsEIJOMLCRSR7170-98-84 22:38:00 Test Item Value Reference Range Interpretation Comments Monocytes (test code = Monocytes) 2.7 2.0-12.0 [facility] CenterAhsjpifUEPTPAFQYO8597-84-91 22:38:00 Test Item Value Reference Range Interpretation Comments Monocytes # (test code 0.4 See_Comment [Aut omated message] The = Monocytes #) system which generated this result tra nsmitted reference range : <=0.8. The reference r annemarie was not used to int erpret this result as normal/abnormal . [facility] CenterGdckrwnPUVOZPCYMX6629-34-88 22:38:00 Test Item Value Reference Range Interpretation Comments Lymphocytes # (test code = Lymphocytes 0.6 1.0-5.5 #) [facility] CenterYrieqerXWYFOZUIHG1242-03-90 22:38:00 Test Item Value Reference Range Interpretation Comments Neutrophils # (test code = Neutrophils 13.0 1.5-8.1 #) [facility] CenterUxvosajMFNBAPFJCT5392-75-55 22:38:00 Test Item Value Reference Range Interpretation Comments Lymphocytes (test code = Lymphocytes) 4.1 20.0-40.0 [facility]axqdgqVQFVLAGTAB6887-53-46 22:38:00 Test Item Value Reference Range Interpretation Comments Eosinophils # (test code 0.0 See_Comment [A utomated message] The = Eosinophils #) system whic h generated this result tra nsmitted reference range : <=0.5. The reference r annemarie was not used to int erpret this result as normal/abnormal . [facility] HealthXcyzbkrJOBBKLDETH9082-86-86 22:38:00 Test Item Value Reference Range Interpretation Comments Basophils # (test code 0.0 See_Comment [Aut omated message] The = Basophils #) system which generated this result tra nsmitted reference range : <=0.2. The reference r annemarie was not used to int erpret this result as normal/abnormal . [facility] HealthCyeahfrKXVJLXQEKE9252-49-50 22:38:00 Test Item Value Reference Range Interpretation Comments RBC Morph (test code = Normal (04/12/18 4:38 RBC Morph) PM) [facility] HealthJirwtqpTJEVTFCTNX0348-30-78 22:38:00 Test Item Value Reference Range Interpretation Comments Plt Morph (test code = Normal (04/12/18 4:38 Plt Morph) PM) [facility] HealthWzpsfgzXYGZBTVUHL4756-07-18 22:38:00 Test Item Value Reference Range Interpretation Comments Segs (test code = Segs) 92.9 45.0-75.0 [facility]bergSzrehnnGKDTILSZAT3987-24-49 22:38:00 Test Item Value Reference Range Interpretation Comments Large Plt (test code Moderate *ABN*(04/12/18 = Large Plt) 4:38 PM) [facility] KlebergCARXP InvestimentosAC ECDAMFL0740-36-17 22:38:00 Test Item Value Reference Range Interpretation Comments Troponin-I (test code 0.02 See_Comment [Auto mated message] The = Troponin-I) system which g enerated this result transmit abdelrahman reference range : <=0.40. The reference r annemarie was not used to interpr et this result as gurpreet l/abnormal. [facility] KlebergCARDIAC YMOUNHZ6272-01-57 22:38:00 Test Item Value Reference Range Interpretation Comments Total CK (test code = Total CK) 50 12-191 [facility] LancasterData ImpactCHEM RWMPP6535-05-90 22:38:00 Test Item Value Reference Range Interpretation Comments eGFR (test code = eGFR) 120 [facility]2018-12-13 22:38:00 Test Item Value Reference Range Interpretation Comments AST (test code = AST) 17 See_Comment [Auto mated message] The system which ge nerated this result transmit abdelrahman reference range : <=37. The reference range was not used to interpr et this result as gurpreet l/abnormal. [facility]2018-12-13 22:38:00 Test Item Value Reference Range Interpretation Comments ALT (test code = ALT) 23 See_Comment [Auto mated message] The system which ge nerated this result transmit abdelrahman reference range : <=65. The reference range was not used to interpr et this result as gurpreet l/abnormal. [facility]2018-12-13 22:38:00 Test Item Value Reference Range Interpretation Comments Albumin Lvl (test code = Albumin Lvl) 4.0 3.5-5.0 [facility]2018-12-13 22:38:00 Test Item Value Reference Range Interpretation Comments Total Protein (test code = Total 7.4 6.4-8.4 Protein) [facility]2018-12-13 22:38:00 Test Item Value Reference Range Interpretation Comments Bili Total (test code = Bili Total) 0.3 0.2-1.3 [facility]2018-12-13 22:38:00 Test Item Value Reference Range Interpretation Comments Alk Phos (test code = Alk Phos) 35 39-136 [facility]2018-12-13 22:38:00 Test Item Value Reference Range Interpretation Comments Chloride Lvl (test code = Chloride Lvl) 103 95-109 [facility]2018-12-13 22:38:00 Test Item Value Reference Range Interpretation Comments Calcium Lvl (test code = Calcium Lvl) 9.4 8.5-10.5 [facility]2018-12-13 22:38:00 Test Item Value Reference Range Interpretation Comments CO2 (test code = CO2) 32 24-32 [facility]2018-12-13 22:38:00 Test Item Value Reference Range Interpretation Comments Potassium Lvl (test code = Potassium 4.2 3.5-5.1 Lvl) [place] 802148-12-13 22:38:00 Test Item Value Reference Range Interpretation Comments Sodium Lvl (test code = Sodium Lvl) 139 135-145 [facility]2018-12-13 22:38:00 Test Item Value Reference Range Interpretation Comments Creatinine Lvl (test code = Creatinine 0.80 0.50-1.40 Lvl) [facility]2018-12-13 22:38:00 Test Item Value Reference Range Interpretation Comments BUN (test code = BUN) 12 7-22 [facility]2018-12-13 22:38:00 Test Item Value Reference Range Interpretation Comments Glucose Lvl (test code = Glucose Lvl) 93 70-99 [facility]2018-12-13 22:38:00 Test Item Value Reference Range Interpretation Comments A/G Ratio (test code = A/G Ratio) 1.2 1 0.7-1.6 [facility]2018-12-13 22:38:00 Test Item Value Reference Range Interpretation Comments Globulin (test code = Globulin) 3.4 2.7-4.2 [facility]2018-12-13 22:38:00 Test Item Value Reference Range Interpretation Comments B/C Ratio (test code = B/C Ratio) 15 1 6-25 [facility]2018-12-13 22:38:00 Test Item Value Reference Range Interpretation Comments AGAP (test code = AGAP) 8.2 10.0-20.0 [facility] CenterIdguqmjVYYOXHDSMN4365-61-41 22:38:00 Test Item Value Reference Range Interpretation Comments MCHC (test code = MCHC) 32.1 32.0-36.0 [facility] CenterGeolkqbMLVGKKJTXE7405-89-66 22:38:00 Test Item Value Reference Range Interpretation Comments MCH (test code = MCH) 27.4 pg 27.0-31.0 [facility] CenterFmyyakaZJQELBTKBR0584-39-16 22:38:00 Test Item Value Reference Range Interpretation Comments Platelet (test code = Platelet) 200 133-450 [facility] CenterXsmejajJMWKNTLUMK9314-26-39 22:38:00 Test Item Value Reference Range Interpretation Comments RDW (test code = RDW) 14.4 11.5-14.5 [facility] CenterAmuykdyNFYSHZIHOB3128-88-77 22:38:00 Test Item Value Reference Range Interpretation Comments MPV (test code = MPV) 9.1 7.4-10.4 [facility] CenterGbcdubaUDQYGXNKZV4385-01-18 22:38:00 Test Item Value Reference Range Interpretation Comments WBC (test code = WBC) 14.0 3.7-10.4 [facility] CenterNuyqdlfQGNWQXUPLB4064-35-50 22:38:00 Test Item Value Reference Range Interpretation Comments RBC (test code = RBC) 5.18 4.70-6.10 [facility] CenterNrrqbpaNXKUTYMWMG9141-96-73 22:38:00 Test Item Value Reference Range Interpretation Comments Hgb (test code = Hgb) 14.2 14.0-18.0 [facility] CenterNjouxksPTHLEPASOO8901-28-53 22:38:00 Test Item Value Reference Range Interpretation Comments Hct (test code = Hct) 44.2 42.0-54.0 [facility] CenterAcnbrobAZMOJXOJXG1483-62-83 22:38:00 Test Item Value Reference Range Interpretation Comments MCV (test code = MCV) 85.3 80.0-94.0 [facility] CenterMxabohyNGIIBUESRR5462-29-37 22:38:00 Test Item Value Reference Range Interpretation Comments Basophils (test code = 0.2 See_Comment [Aut omated message] The Basophils) system which ge nerated this result tra nsmitted reference range : <=1.0. The reference r annemarie was not used to int erpret this result as normal/abnormal . [facility] CenterMpmevzfNSBVQOOASV8439-04-71 22:38:00 Test Item Value Reference Range Interpretation Comments Eosinophils (test code = 0.1 See_Comment [A utomated message] The Eosinophils) system which ge nerated this result tra nsmitted reference range : <=4.0. The reference r annemarie was not used to int erpret this result as normal/abnormal . [facility] CenterTisexivHUTOSRPBWU1799-10-07 22:38:00 Test Item Value Reference Range Interpretation Comments Monocytes (test code = Monocytes) 2.7 2.0-12.0 [facility] CenterCweyaqoPNFRHJRNJL5427-50-41 22:38:00 Test Item Value Reference Range Interpretation Comments Monocytes # (test code 0.4 See_Comment [Aut omated message] The = Monocytes #) system which generated this result tra nsmitted reference range : <=0.8. The reference r annemarie was not used to int erpret this result as normal/abnormal . [facility] CenterCabkukzFOJAAJAGOP6948-55-10 22:38:00 Test Item Value Reference Range Interpretation Comments Lymphocytes # (test code = Lymphocytes 0.6 1.0-5.5 #) [facility] CenterLaosrcaLSBLHQERCU8573-96-58 22:38:00 Test Item Value Reference Range Interpretation Comments Neutrophils # (test code = Neutrophils 13.0 1.5-8.1 #) [facility] CenterAkkgyadUMBCYKHDEO5450-22-26 22:38:00 Test Item Value Reference Range Interpretation Comments Lymphocytes (test code = Lymphocytes) 4.1 20.0-40.0 [facility] CenterZzzoomhVGQPPNANDJ7349-05-52 22:38:00 Test Item Value Reference Range Interpretation Comments Eosinophils # (test code 0.0 See_Comment [A utomated message] The = Eosinophils #) system whic h generated this result tra nsmitted reference range : <=0.5. The reference r annemarie was not used to int erpret this result as normal/abnormal . [facility] CenterQibcwfxMOICZBMLNW9628-95-40 22:38:00 Test Item Value Reference Range Interpretation Comments Basophils # (test code 0.0 See_Comment [Aut omated message] The = Basophils #) system which generated this result tra nsmitted reference range : <=0.2. The reference r annemarie was not used to int erpret this result as normal/abnormal . [facility] CenterEtrtkjnOSRFESOIIA6923-34-98 22:38:00 Test Item Value Reference Range Interpretation Comments RBC Morph (test code = Normal (04/12/18 4:38 RBC Morph) PM) [facility] CenterAekyywcJOYCYKCQTK3912-84-43 22:38:00 Test Item Value Reference Range Interpretation Comments Plt Morph (test code = Normal (04/12/18 4:38 Plt Morph) PM) [facility] CenterQdeenycUOGYGZGLCC8304-75-27 22:38:00 Test Item Value Reference Range Interpretation Comments Segs (test code = Segs) 92.9 45.0-75.0 [facility] CenterCasrijrKJUXKYHENP8909-56-01 22:38:00 Test Item Value Reference Range Interpretation Comments Large Plt (test code Moderate *ABN*(04/12/18 = Large Plt) 4:38 PM) [facility]bergCARDICOREWELL HEALTH BLODGETT HOSPITALFQAEFXY1360-53-23 22:38:00 Test Item Value Reference Range Interpretation Comments Troponin-I (test code 0.02 See_Comment [Auto mated message] The = Troponin-I) system which g enerated this result transmit abdelrahman reference range : <=0.40. The reference r annemarie was not used to interpr et this result as gurpreet l/abnormal. [facility]bergCARDIAC CTIWGAK1786-94-42 22:38:00 Test Item Value Reference Range Interpretation Comments Total CK (test code = Total CK) 50 12-191 [facility] KlebergValtech [employer] [id number] 22:38:00 Test Item Value Reference Range Interpretation Comments eGFR (test code = eGFR) 120 [facility] KZHQC2236-03-45 22:38:00 Test Item Value Reference Range Interpretation Comments AST (test code = AST) 17 See_Comment [Auto mated message] The system which ge nerated this result transmit abdelrahman reference range : <=37. The reference range was not used to interpr et this result as gurpreet l/abnormal. [facility]2018-12-13 22:38:00 Test Item Value Reference Range Interpretation Comments ALT (test code = ALT) 23 See_Comment [Auto mated message] The system which ge nerated this result transmit abdelrahman reference range : <=65. The reference range was not used to interpr et this result as gurpreet l/abnormal. [facility]2018-12-13 22:38:00 Test Item Value Reference Range Interpretation Comments Albumin Lvl (test code = Albumin Lvl) 4.0 3.5-5.0 [facility]2018-12-13 22:38:00 Test Item Value Reference Range Interpretation Comments Total Protein (test code = Total 7.4 6.4-8.4 Protein) [facility]2018-12-13 22:38:00 Test Item Value Reference Range Interpretation Comments Bili Total (test code = Bili Total) 0.3 0.2-1.3 [facility]2018-12-13 22:38:00 Test Item Value Reference Range Interpretation Comments Alk Phos (test code = Alk Phos) 35 39-136 [facility]2018-12-13 22:38:00 Test Item Value Reference Range Interpretation Comments Chloride Lvl (test code = Chloride Lvl) 103 95-109 [facility]2018-12-13 22:38:00 Test Item Value Reference Range Interpretation Comments Calcium Lvl (test code = Calcium Lvl) 9.4 8.5-10.5 [facility]2018-12-13 22:38:00 Test Item Value Reference Range Interpretation Comments CO2 (test code = CO2) 32 24-32 [facility]2018-12-13 22:38:00 Test Item Value Reference Range Interpretation Comments Potassium Lvl (test code = Potassium 4.2 3.5-5.1 Lvl) [facility]2018-12-13 22:38:00 Test Item Value Reference Range Interpretation Comments Sodium Lvl (test code = Sodium Lvl) 139 135-145 [facility]2018-12-13 22:38:00 Test Item Value Reference Range Interpretation Comments Creatinine Lvl (test code = Creatinine 0.80 0.50-1.40 Lvl) [facility]2018-12-13 22:38:00 Test Item Value Reference Range Interpretation Comments BUN (test code = BUN) 12 7-22 [facility]2018-12-13 22:38:00 Test Item Value Reference Range Interpretation Comments Glucose Lvl (test code = Glucose Lvl) 93 70-99 [facility]2018-12-13 22:38:00 Test Item Value Reference Range Interpretation Comments A/G Ratio (test code = A/G Ratio) 1.2 1 0.7-1.6 [facility]2018-12-13 22:38:00 Test Item Value Reference Range Interpretation Comments Globulin (test code = Globulin) 3.4 2.7-4.2 [facility]2018-12-13 22:38:00 Test Item Value Reference Range Interpretation Comments B/C Ratio (test code = B/C Ratio) 15 1 6-25 [facility]2018-12-13 22:38:00 Test Item Value Reference Range Interpretation Comments AGAP (test code = AGAP) 8.2 10.0-20.0 [facility]gumphzIHHCFIDBGA4029-88-65 22:38:00 Test Item Value Reference Range Interpretation Comments MCHC (test code = MCHC) 32.1 32.0-36.0 [facility] CenterIwteszxGVBWOIAXMZ3413-61-86 22:38:00 Test Item Value Reference Range Interpretation Comments MCH (test code = MCH) 27.4 pg 27.0-31.0 [place] [id number] 22:38:00 Test Item Value Reference Range Interpretation Comments Platelet (test code = Platelet) 200 133-450 [facility] CenterXmmncjbYMYZCTJGXH9229-03-66 22:38:00 Test Item Value Reference Range Interpretation Comments RDW (test code = RDW) 14.4 11.5-14.5 [facility] CenterRxjupjeIXLJYNFUGW8796-74-32 22:38:00 Test Item Value Reference Range Interpretation Comments MPV (test code = MPV) 9.1 7.4-10.4 [facility] CenterRcgtvbhVMSYEENGKP5627-96-55 22:38:00 Test Item Value Reference Range Interpretation Comments WBC (test code = WBC) 14.0 3.7-10.4 [facility] CenterMrjiyucXRAEATIWEO1974-10-68 22:38:00 Test Item Value Reference Range Interpretation Comments RBC (test code = RBC) 5.18 4.70-6.10 [facility] CenterBfkmboxBPKYYKLKQV7752-64-53 22:38:00 Test Item Value Reference Range Interpretation Comments Hgb (test code = Hgb) 14.2 14.0-18.0 [facility] CenterMabhnbiHBCCQRCWAW5928-78-13 22:38:00 Test Item Value Reference Range Interpretation Comments Hct (test code = Hct) 44.2 42.0-54.0 [facility] CenterXattulzLQXVHKUKCU3137-33-03 22:38:00 Test Item Value Reference Range Interpretation Comments MCV (test code = MCV) 85.3 80.0-94.0 [facility] CenterOjjzepoKKLWNPKDSP4269-10-41 22:38:00 Test Item Value Reference Range Interpretation Comments Basophils (test code = 0.2 See_Comment [Aut omated message] The Basophils) system which ge nerated this result tra nsmitted reference range : <=1.0. The reference r annemarie was not used to int erpret this result as normal/abnormal . [facility] CenterSmjwdmvBPCVTBKXTX3542-42-55 22:38:00 Test Item Value Reference Range Interpretation Comments Eosinophils (test code = 0.1 See_Comment [A utomated message] The Eosinophils) system which ge nerated this result tra nsmitted reference range : <=4.0. The reference r annemarie was not used to int erpret this result as normal/abnormal . [place] 551098-12-13 22:38:00 Test Item Value Reference Range Interpretation Comments Monocytes (test code = Monocytes) 2.7 2.0-12.0 [facility] CenterXxulafzZISVDFBISM1537-97-97 22:38:00 Test Item Value Reference Range Interpretation Comments Monocytes # (test code 0.4 See_Comment [Aut omated message] The = Monocytes #) system which generated this result tra nsmitted reference range : <=0.8. The reference r annemarie was not used to int erpret this result as normal/abnormal . [facility] CenterGvyajfxHTNWXDYTZU9545-68-50 22:38:00 Test Item Value Reference Range Interpretation Comments Lymphocytes # (test code = Lymphocytes 0.6 1.0-5.5 #) [facility] CenterTpybjavVQGPJBTNCX8549-51-04 22:38:00 Test Item Value Reference Range Interpretation Comments Neutrophils # (test code = Neutrophils 13.0 1.5-8.1 #) [facility] CenterOrodbpxWENJLWIEWW3005-06-52 22:38:00 Test Item Value Reference Range Interpretation Comments Lymphocytes (test code = Lymphocytes) 4.1 20.0-40.0 [facility] CenterGoebkzaQPEUZXYZPT1598-67-94 22:38:00 Test Item Value Reference Range Interpretation Comments Eosinophils # (test code 0.0 See_Comment [A utomated message] The = Eosinophils #) system whic h generated this result tra nsmitted reference range : <=0.5. The reference r annemarie was not used to int erpret this result as normal/abnormal . [facility] CenterLlrqedvQVZLHXMKTR1767-56-79 22:38:00 Test Item Value Reference Range Interpretation Comments Basophils # (test code 0.0 See_Comment [Aut omated message] The = Basophils #) system which generated this result tra nsmitted reference range : <=0.2. The reference r annemarie was not used to int erpret this result as normal/abnormal . [facility] CenterQrrpvqpZNBBHSEWWE7211-25-66 22:38:00 Test Item Value Reference Range Interpretation Comments RBC Morph (test code = Normal (04/12/18 4:38 RBC Morph) PM) [facility] CenterXsbmpliUZVQLAFTEX6636-02-97 22:38:00 Test Item Value Reference Range Interpretation Comments Plt Morph (test code = Normal (04/12/18 4:38 Plt Morph) PM) [facility] CenterCcjmpunGOYSISPFLS5202-25-55 22:38:00 Test Item Value Reference Range Interpretation Comments Segs (test code = Segs) 92.9 45.0-75.0 [facility]SewrodaRQGBNUTBLS5529-93-63 22:38:00 Test Item Value Reference Range Interpretation Comments Large Plt (test code Moderate *ABN*(04/12/18 = Large Plt) 4:38 PM) [facility]bergCARDIAC YGWORZQ4697-47-19 03:21:00 Test Item Value Reference Range Interpretation Comments Total CK (test code = Total CK) 3725 12-191 [facility]BzkeienBXVVFVNTUOPF8554-99-61 03:21:00 Test Item Value Reference Range Interpretation Comments AGAP (test code = AGAP) 14.1 10.0-20.0 [facility] HospitalYhayweaLGMWRKRUQOIA9042-93-79 03:21:00 Test Item Value Reference Range Interpretation Comments B/C Ratio (test code = B/C Ratio) 11 6-25 [facility] HospitalMfnnjbqISMGWFECPJCY5887-74-28 03:21:00 Test Item Value Reference Range Interpretation Comments Globulin (test code = Globulin) 3.2 2.7-4.2 [facility] HospitalEdcvowaDROCMVJNVIAI7230-14-20 03:21:00 Test Item Value Reference Range Interpretation Comments A/G Ratio (test code = A/G Ratio) 1.3 0.7-1.6 [facility] HospitalSxdgbbdSNOZBEYXTRSX9772-01-60 03:21:00 Test Item Value Reference Range Interpretation Comments Bili Total (test code = Bili Total) 0.4 0.2-1.3 [facility] HospitalTnpwhggIYQBOSUCNBCH1622-18-86 03:21:00 Test Item Value Reference Range Interpretation Comments eGFR (test code = eGFR) [address] [facility] HospitalVxwsdvtFPRMNXSOTBXH4342-13-76 03:21:00 Test Item Value Reference Range Interpretation Comments Albumin Lvl (test code = Albumin Lvl) 4.2 3.5-5.0 [facility] HospitalDsnbkhhWCWRXCPWPDYV6852-14-38 03:21:00 Test Item Value Reference Range Interpretation Comments Alk Phos (test code = Alk Phos) 48 39-136 [facility] HospitalZfhtijjGUHVNTFOSLXW8114-09-77 03:21:00 Test Item Value Reference Range Interpretation Comments AST (test code = AST) 144 See_Comment [Auto mated message] The system which ge nerated this result transmit abdelrahman reference range : <=37. The reference range was not used to interpr et this result as gurpreet l/abnormal. [facility] HospitalLrgvaxhFNEEXTVXOUSF1080-47-47 03:21:00 Test Item Value Reference Range Interpretation Comments Glucose Lvl (test code = Glucose Lvl) 75 70-99 [facility] HospitalMtwwhaeNXDMWIHNLOJO7329-74-35 03:21:00 Test Item Value Reference Range Interpretation Comments BUN (test code = BUN) 11 7-22 [facility] HospitalXjbjrniVKHGDAADGQVP1900-71-23 03:21:00 Test Item Value Reference Range Interpretation Comments Potassium Lvl (test code = Potassium 4.1 3.5-5.1 Lvl) [facility] HospitalNyeodvmJXAKQKSULIMZ2151-72-35 03:21:00 Test Item Value Reference Range Interpretation Comments Creatinine Lvl (test code = Creatinine 1.00 0.50-1.40 Lvl) [facility] HospitalJdtdvjuOIOFZGTYBJTB4661-60-00 03:21:00 Test Item Value Reference Range Interpretation Comments Sodium Lvl (test code = Sodium Lvl) 140 135-145 [facility] HospitalNvgyjqmXJPOUOBBYRFB8404-44-45 03:21:00 Test Item Value Reference Range Interpretation Comments Chloride Lvl (test code = Chloride Lvl) 106 95-109 [facility] HospitalJqasvseROKNUOCPHVFG9319-89-75 03:21:00 Test Item Value Reference Range Interpretation Comments CO2 (test code = CO2) 24 24-32 [facility] HospitalFmqfkvfZNXJTTENBLET8165-36-34 03:21:00 Test Item Value Reference Range Interpretation Comments Total Protein (test code = Total 7.4 6.4-8.4 Protein) [facility] HospitalDnmcnmgJQXKDBUEQSWY2728-73-81 03:21:00 Test Item Value Reference Range Interpretation Comments Calcium Lvl (test code = Calcium Lvl) 9.1 8.5-10.5 [facility] HospitalUiljxkkYTKPVXATPGRT4816-23-69 03:21:00 Test Item Value Reference Range Interpretation Comments ALT (test code = ALT) 52 See_Comment [Auto mated message] The system which ge nerated this result transmit abdelrahman reference range : <=65. The reference range was not used to interpr et this result as gurpreet l/abnormal. [facility] CenterTsjdlzyMVNOYTKBGL6049-54-73 03:21:00 Test Item Value Reference Range Interpretation Comments MCV (test code = MCV) 86.0 80.0-94.0 [facility] CenterJksnqdlJWBYOPEBJJ4336-55-24 03:21:00 Test Item Value Reference Range Interpretation Comments MCH (test code = MCH) 29.7 pg 27.0-31.0 [facility] CenterAxyiarqULQLDACINF0914-57-00 03:21:00 Test Item Value Reference Range Interpretation Comments Hct (test code = Hct) 41.0 42.0-54.0 [facility] CenterSedcdmjHIUAXEWKZX3036-98-00 03:21:00 Test Item Value Reference Range Interpretation Comments RBC (test code = RBC) 4.77 4.70-6.10 [facility] CenterTfvmntmFJDXCLNXYL9462-92-35 03:21:00 Test Item Value Reference Range Interpretation Comments WBC (test code = WBC) 8.8 3.7-10.4 [facility] CenterLkushffIDWUQSEPOZ4031-26-57 03:21:00 Test Item Value Reference Range Interpretation Comments Hgb (test code = Hgb) 14.2 14.0-18.0 [facility] CenterGfhtfsbEUYKGPZHDZ3267-16-95 03:21:00 Test Item Value Reference Range Interpretation Comments Platelet (test code = Platelet) 141 133-450 [facility] CenterVyzarbzKGRNGSCQPI0151-12-01 03:21:00 Test Item Value Reference Range Interpretation Comments MCHC (test code = MCHC) 34.5 32.0-36.0 [facility] CenterIurjiflWEPOWIYAVX0690-52-98 03:21:00 Test Item Value Reference Range Interpretation Comments RDW (test code = RDW) 13.5 11.5-14.5 [facility] CenterRojvycdDUWPXDYMSB5343-15-71 03:21:00 Test Item Value Reference Range Interpretation Comments MPV (test code = MPV) 8.9 7.4-10.4 [facility] CenterHjtkoyiHCAQJRSTWU8498-81-71 03:21:00 Test Item Value Reference Range Interpretation Comments Lymphocytes (test code = Lymphocytes) 21.1 20.0-40.0 [facility] CenterEdduqwaPZBGRNUCPS2699-49-08 03:21:00 Test Item Value Reference Range Interpretation Comments Monocytes (test code = Monocytes) 11.7 2.0-12.0 [facility] CenterJnmkpdsWUELFAEOHP8707-25-24 03:21:00 Test Item Value Reference Range Interpretation Comments Lymphocytes # (test code = Lymphocytes 1.8 1.0-5.5 #) [facility] CenterMenngsvXIPTOHSQPV4860-64-43 03:21:00 Test Item Value Reference Range Interpretation Comments Segs-Bands # (test code = Segs-Bands #) 5.7 1.5-8.1 [facility] CenterFtzephlUDMQKESIGZ9922-77-34 03:21:00 Test Item Value Reference Range Interpretation Comments Eosinophils (test code = 1.7 See_Comment [A utomated message] The Eosinophils) system which ge nerated this result tra nsmitted reference range : <=4.0. The reference r annemarie was not used to int erpret this result as normal/abnormal . [facility] CenterVmsdkaoNGLICBGLDV0728-31-61 03:21:00 Test Item Value Reference Range Interpretation Comments Basophils (test code = 0.8 See_Comment [Aut omated message] The Basophils) system which ge nerated this result tra nsmitted reference range : <=1.0. The reference r annemarie was not used to int erpret this result as normal/abnormal . [facility] CenterUovbexwVTVBOCCKPA2878-36-22 03:21:00 Test Item Value Reference Range Interpretation Comments Basophils # (test code 0.1 See_Comment [Aut omated message] The = Basophils #) system which generated this result tra nsmitted reference range : <=0.2. The reference r annemarie was not used to int erpret this result as normal/abnormal . [facility] CenterDbpfbrzDZKLKIAZAZ0540-78-24 03:21:00 Test Item Value Reference Range Interpretation Comments Monocytes # (test code 1.0 See_Comment [Aut omated message] The = Monocytes #) system which generated this result tra nsmitted reference range : <=0.8. The reference r annemarie was not used to int erpret this result as normal/abnormal . [facility] CenterNmfippfCIHBTOJZDU0050-44-34 03:21:00 Test Item Value Reference Range Interpretation Comments Eosinophils # (test code 0.2 See_Comment [A utomated message] The = Eosinophils #) system whic h generated this result tra nsmitted reference range : <=0.5. The reference r annemarie was not used to int erpret this result as normal/abnormal . [facility] CenterFxuiwgyEDYXFXHVKW6767-81-02 03:21:00 Test Item Value Reference Range Interpretation Comments Segs (test code = Segs) 64.7 45.0-75.0 [facility]2017-01-01 03:21:00 Test Item Value Reference Range Interpretation Comments Total CK (test code = Total CK) 3725 12-[address] [facility] HospitalPsjadtpFGOUVWUQFDKE7033-91-55 03:21:00 Test Item Value Reference Range Interpretation Comments AGAP (test code = AGAP) 14.1 10.0-20.0 [facility] HospitalMbuydzbHXXNZBCPCRGW8750-83-87 03:21:00 Test Item Value Reference Range Interpretation Comments B/C Ratio (test code = B/C Ratio) 11 6-25 [facility] HospitalYsefmwgXSNPCWZEXEAL6869-53-07 03:21:00 Test Item Value Reference Range Interpretation Comments Globulin (test code = Globulin) 3.2 2.7-4.2 [facility] HospitalEotwfgwHYYVMODESACC2844-07-10 03:21:00 Test Item Value Reference Range Interpretation Comments A/G Ratio (test code = A/G Ratio) 1.3 0.7-1.6 [facility] HospitalXkqccvsYCRQWWRTIGYR9414-58-73 03:21:00 Test Item Value Reference Range Interpretation Comments Bili Total (test code = Bili Total) 0.4 0.2-1.3 [facility] HospitalVzelmxhHUWEVIJFJNCU2479-04-63 03:21:00 Test Item Value Reference Range Interpretation Comments eGFR (test code = eGFR) [address] [facility] HospitalXksxbpcPIJKKBQYTXCA4115-93-33 03:21:00 Test Item Value Reference Range Interpretation Comments Albumin Lvl (test code = Albumin Lvl) 4.2 3.5-5.0 [facility] HospitalMlksdhhWBVHTJWWMKAJ9254-80-49 03:21:00 Test Item Value Reference Range Interpretation Comments Alk Phos (test code = Alk Phos) 48 39-136 [facility] HospitalZhsbrhmRGDQJVNZZEDH7464-33-31 03:21:00 Test Item Value Reference Range Interpretation Comments AST (test code = AST) 144 See_Comment [Auto mated message] The system which ge nerated this result transmit abdelrahman reference range : <=37. The reference range was not used to interpr et this result as gurpreet l/abnormal. [facility] HospitalIpgqiiyBXMSRLJLJLEP3792-87-03 03:21:00 Test Item Value Reference Range Interpretation Comments Glucose Lvl (test code = Glucose Lvl) 75 70-99 [facility] HospitalJpzreprZCFTIPBRDVFG0788-01-89 03:21:00 Test Item Value Reference Range Interpretation Comments BUN (test code = BUN) 11 7-22 [facility] HospitalSuqcqueTURCHKPNZPAU8802-01-42 03:21:00 Test Item Value Reference Range Interpretation Comments Potassium Lvl (test code = Potassium 4.1 3.5-5.1 Lvl) [facility] HospitalUuehyjeLATPHWAIKALO0544-09-96 03:21:00 Test Item Value Reference Range Interpretation Comments Creatinine Lvl (test code = Creatinine 1.00 0.50-1.40 Lvl) [facility] HospitalGcwghllZYSRJVWGAHWX7373-27-50 03:21:00 Test Item Value Reference Range Interpretation Comments Sodium Lvl (test code = Sodium Lvl) 140 135-[address] [facility] HospitalFmhclwsYXRKCWUPBBSP9367-86-83 03:21:00 Test Item Value Reference Range Interpretation Comments Chloride Lvl (test code = Chloride Lvl) 106 95-109 [facility] HospitalFgpkvloMTULHIXDZDJZ3881-23-22 03:21:00 Test Item Value Reference Range Interpretation Comments CO2 (test code = CO2) 24 24-32 [facility] HospitalCzsbnmtKKXPWTUEFYDL8373-40-57 03:21:00 Test Item Value Reference Range Interpretation Comments Total Protein (test code = Total 7.4 6.4-8.4 Protein) [facility] HospitalIdjefrbTYFDIULYIKZV3714-08-23 03:21:00 Test Item Value Reference Range Interpretation Comments Calcium Lvl (test code = Calcium Lvl) 9.1 8.5-10.5 [facility] HospitalSwvpaoeEWKGSJXUMNAN2789-41-35 03:21:00 Test Item Value Reference Range Interpretation Comments ALT (test code = ALT) 52 See_Comment [Auto mated message] The system which ge nerated this result transmit abdelrahman reference range : <=65. The reference range was not used to interpr et this result as gurpreet l/abnormal. [facility] CenterEdtakhkQLVFPXWQMX7434-29-92 03:21:00 Test Item Value Reference Range Interpretation Comments MCV (test code = MCV) 86.0 80.0-94.0 [facility] CenterYoehjktUPJZHXRJKO3709-11-07 03:21:00 Test Item Value Reference Range Interpretation Comments MCH (test code = MCH) 29.7 pg 27.0-31.0 [facility] CenterVztbxrkHOXOQHYDWL6878-89-49 03:21:00 Test Item Value Reference Range Interpretation Comments Hct (test code = Hct) 41.0 42.0-54.0 [facility] CenterHeduvgfPXYCVMFXTE0901-78-14 03:21:00 Test Item Value Reference Range Interpretation Comments RBC (test code = RBC) 4.77 4.70-6.10 [facility] CenterTiucccoXUGETTGNSN6036-50-76 03:21:00 Test Item Value Reference Range Interpretation Comments WBC (test code = WBC) 8.8 3.7-10.4 [facility] CenterKtheoafRENHHGFARB1420-43-91 03:21:00 Test Item Value Reference Range Interpretation Comments Hgb (test code = Hgb) 14.2 14.0-18.0 [facility] CenterIpatodmUIHEPEXYFP0976-26-16 03:21:00 Test Item Value Reference Range Interpretation Comments Platelet (test code = Platelet) 141 133-450 [facility] CenterXfhvmvhNUTGGJERWQ4933-14-87 03:21:00 Test Item Value Reference Range Interpretation Comments MCHC (test code = MCHC) 34.5 32.0-36.0 [facility] CenterHjfaypxBTYDWKRLPZ9356-96-98 03:21:00 Test Item Value Reference Range Interpretation Comments RDW (test code = RDW) 13.5 11.5-14.5 [facility] CenterKdhkyxoTQYMDGPVTI0717-54-65 03:21:00 Test Item Value Reference Range Interpretation Comments MPV (test code = MPV) 8.9 7.4-10.4 [facility] CenterJuskustKRYVKSBIXK7723-08-57 03:21:00 Test Item Value Reference Range Interpretation Comments Lymphocytes (test code = Lymphocytes) 21.1 20.0-40.0 [facility] CenterJzqxrcpMEHUFNQPQY5202-70-18 03:21:00 Test Item Value Reference Range Interpretation Comments Monocytes (test code = Monocytes) 11.7 2.0-12.0 [facility] CenterEvgqyfeQXBFZDIZJU5072-43-08 03:21:00 Test Item Value Reference Range Interpretation Comments Lymphocytes # (test code = Lymphocytes 1.8 1.0-5.5 #) [facility] CenterTsdjulhFRTQEUQHQJ7672-59-77 03:21:00 Test Item Value Reference Range Interpretation Comments Segs-Bands # (test code = Segs-Bands #) 5.7 1.5-8.1 [facility] CenterIoznrxmLROYETRTUJ7161-56-05 03:21:00 Test Item Value Reference Range Interpretation Comments Eosinophils (test code = 1.7 See_Comment [A utomated message] The Eosinophils) system which ge nerated this result tra nsmitted reference range : <=4.0. The reference r annemarie was not used to int erpret this result as normal/abnormal . [facility] CenterEvxpkjrYQZOFGQSUU7211-72-41 03:21:00 Test Item Value Reference Range Interpretation Comments Basophils (test code = 0.8 See_Comment [Aut omated message] The Basophils) system which ge nerated this result tra nsmitted reference range : <=1.0. The reference r annemarie was not used to int erpret this result as normal/abnormal . [facility] CenterEffkvgyJYAHIVGSGA7593-49-86 03:21:00 Test Item Value Reference Range Interpretation Comments Basophils # (test code 0.1 See_Comment [Aut omated message] The = Basophils #) system which generated this result tra nsmitted reference range : <=0.2. The reference r annemarie was not used to int erpret this result as normal/abnormal . [facility] CenterXtgyazjJYOUWFBWVC8634-27-18 03:21:00 Test Item Value Reference Range Interpretation Comments Monocytes # (test code 1.0 See_Comment [Aut omated message] The = Monocytes #) system which generated this result tra nsmitted reference range : <=0.8. The reference r annemarie was not used to int erpret this result as normal/abnormal . [facility]EbtwckwPMUFBWDYHI7554-56-17 03:21:00 Test Item Value Reference Range Interpretation Comments Eosinophils # (test code 0.2 See_Comment [A utomated message] The = Eosinophils #) system whic h generated this result tra nsmitted reference range : <=0.5. The reference r annemarie was not used to int erpret this result as normal/abnormal . [facility] CenterTtqxlnyJDZVIGEFPI9046-56-45 03:21:00 Test Item Value Reference Range Interpretation Comments Segs (test code = Segs) 64.7 45.0-75.0 [facility] ZQKHZCV4877-30-63 03:21:00 Test Item Value Reference Range Interpretation Comments Total CK (test code = Total CK) 3725 12-[address] [facility] HospitalXivlyktAOLWUNDGOIMO8483-85-58 03:21:00 Test Item Value Reference Range Interpretation Comments AGAP (test code = AGAP) 14.1 10.0-20.0 [facility] HospitalZvpxptySNKVRIAKYZPL3033-39-15 03:21:00 Test Item Value Reference Range Interpretation Comments B/C Ratio (test code = B/C Ratio) 11 6-[address] [facility] HospitalBmqyagpVSIHNHUELKVQ4819-61-30 03:21:00 Test Item Value Reference Range Interpretation Comments Globulin (test code = Globulin) 3.2 2.7-4.2 [facility] HospitalHvjihwdTCSYRGTNMKHF1952-21-61 03:21:00 Test Item Value Reference Range Interpretation Comments A/G Ratio (test code = A/G Ratio) 1.3 0.7-1.6 [facility] HospitalZyfrxpbQOIDWVOKYLUN6181-89-49 03:21:00 Test Item Value Reference Range Interpretation Comments Bili Total (test code = Bili Total) 0.4 0.2-1.3 [facility] HospitalZspsvjzJAJUSQDUNLPJ9221-26-09 03:21:00 Test Item Value Reference Range Interpretation Comments eGFR (test code = eGFR) [address] [facility] HospitalQmkxwgjIITOVLWMHVHP7017-56-27 03:21:00 Test Item Value Reference Range Interpretation Comments Albumin Lvl (test code = Albumin Lvl) 4.2 3.5-5.0 [facility] HospitalSnebikrDOZSVLEZPLNG7122-07-95 03:21:00 Test Item Value Reference Range Interpretation Comments Alk Phos (test code = Alk Phos) 48 39-136 [facility] HospitalVojalrrEMJCAIFXWPAZ4760-38-37 03:21:00 Test Item Value Reference Range Interpretation Comments AST (test code = AST) 144 See_Comment [Auto mated message] The system which ge nerated this result transmit abdelrahman reference range : <=37. The reference range was not used to interpr et this result as gurpreet l/abnormal. [facility] HospitalTwlwsqbZSFADTSKIWWK7185-88-63 03:21:00 Test Item Value Reference Range Interpretation Comments Glucose Lvl (test code = Glucose Lvl) 75 70-99 [facility] HospitalAellwehIURQMAIFYSZZ4307-59-25 03:21:00 Test Item Value Reference Range Interpretation Comments BUN (test code = BUN) 11 7-22 [facility] HospitalOcmwwpzWDRLHUGILJJK9866-72-55 03:21:00 Test Item Value Reference Range Interpretation Comments Potassium Lvl (test code = Potassium 4.1 3.5-5.1 Lvl) [facility] HospitalDneetimSCEDQORUWYND6827-85-51 03:21:00 Test Item Value Reference Range Interpretation Comments Creatinine Lvl (test code = Creatinine 1.00 0.50-1.40 Lvl) [facility] HospitalRyrthwzAYCDPQYVXLAK1089-03-95 03:21:00 Test Item Value Reference Range Interpretation Comments Sodium Lvl (test code = Sodium Lvl) 140 135-[address] [facility] HospitalPtmotkuJWBEZBYCZNTY4491-68-29 03:21:00 Test Item Value Reference Range Interpretation Comments Chloride Lvl (test code = Chloride Lvl) 106 95-[address] [facility] HospitalDycpojvUNJTNDHUADFH9410-46-88 03:21:00 Test Item Value Reference Range Interpretation Comments CO2 (test code = CO2) 24 24-32 [facility] HospitalEgvlatoRXWUACVDARUK1202-96-97 03:21:00 Test Item Value Reference Range Interpretation Comments Total Protein (test code = Total 7.4 6.4-8.4 Protein) [facility] HospitalEniwgkfUVTILAHWVBNF3055-65-33 03:21:00 Test Item Value Reference Range Interpretation Comments Calcium Lvl (test code = Calcium Lvl) 9.1 8.5-10.5 [facility] HospitalYrenswgKJOWPXRCBCHC9168-90-66 03:21:00 Test Item Value Reference Range Interpretation Comments ALT (test code = ALT) 52 See_Comment [Auto mated message] The system which ge nerated this result transmit abdelrahman reference range : <=65. The reference range was not used to interpr et this result as gurpreet l/abnormal. [facility] CenterOmfplgfLWZXFICUPL3690-68-48 03:21:00 Test Item Value Reference Range Interpretation Comments MCV (test code = MCV) 86.0 80.0-94.0 [facility] CenterDbevgloUWXBRDNIBQ8134-00-65 03:21:00 Test Item Value Reference Range Interpretation Comments MCH (test code = MCH) 29.7 pg 27.0-31.0 [facility] CenterWfnxlahIPPBVLOEZI5449-81-04 03:21:00 Test Item Value Reference Range Interpretation Comments Hct (test code = Hct) 41.0 42.0-54.0 [facility] CenterYobujdwNXVNTPUNRU2002-35-55 03:21:00 Test Item Value Reference Range Interpretation Comments RBC (test code = RBC) 4.77 4.70-6.10 [facility] CenterVltfjhdEHZOLYWGSM1161-21-11 03:21:00 Test Item Value Reference Range Interpretation Comments WBC (test code = WBC) 8.8 3.7-10.4 [facility] CenterImnmfyhVVYNCLALCG6418-08-32 03:21:00 Test Item Value Reference Range Interpretation Comments Hgb (test code = Hgb) 14.2 14.0-18.0 [facility] CenterUablopbPRCNLJXPBX5788-43-03 03:21:00 Test Item Value Reference Range Interpretation Comments Platelet (test code = Platelet) 141 133-450 [facility] CenterImakeepCQXZVMSMJS9782-25-30 03:21:00 Test Item Value Reference Range Interpretation Comments MCHC (test code = MCHC) 34.5 32.0-36.0 [facility] CenterKaoszjwXGSKLWNCTJ6424-19-41 03:21:00 Test Item Value Reference Range Interpretation Comments RDW (test code = RDW) 13.5 11.5-14.5 [facility] CenterSzgdxokDXBBLEAUWS1444-93-06 03:21:00 Test Item Value Reference Range Interpretation Comments MPV (test code = MPV) 8.9 7.4-10.4 [facility] CenterCzdfuzlBABNHDRCKK4809-71-55 03:21:00 Test Item Value Reference Range Interpretation Comments Lymphocytes (test code = Lymphocytes) 21.1 20.0-40.0 [facility] CenterOdumkdpBOIJPGBFXM4638-29-64 03:21:00 Test Item Value Reference Range Interpretation Comments Monocytes (test code = Monocytes) 11.7 2.0-12.0 [facility] CenterAnzqklyFTUUOYEMKC9585-97-64 03:21:00 Test Item Value Reference Range Interpretation Comments Lymphocytes # (test code = Lymphocytes 1.8 1.0-5.5 #) [facility] CenterJphffcoXHVUFQUREA8586-44-41 03:21:00 Test Item Value Reference Range Interpretation Comments Segs-Bands # (test code = Segs-Bands #) 5.7 1.5-8.1 [facility] CenterNvsydehVZCCYIEKWK8274-28-79 03:21:00 Test Item Value Reference Range Interpretation Comments Eosinophils (test code = 1.7 See_Comment [A utomated message] The Eosinophils) system which ge nerated this result tra nsmitted reference range : <=4.0. The reference r annemarie was not used to int erpret this result as normal/abnormal . [facility] CenterRipxnylCUEAQSAAQJ7581-31-71 03:21:00 Test Item Value Reference Range Interpretation Comments Basophils (test code = 0.8 See_Comment [Aut omated message] The Basophils) system which ge nerated this result tra nsmitted reference range : <=1.0. The reference r annemarie was not used to int erpret this result as normal/abnormal . [facility] CenterFdawktjNNOOBYCTKR0677-57-23 03:21:00 Test Item Value Reference Range Interpretation Comments Basophils # (test code 0.1 See_Comment [Aut omated message] The = Basophils #) system which generated this result tra nsmitted reference range : <=0.2. The reference r annemarie was not used to int erpret this result as normal/abnormal . [facility] CenterYkqxzswWRHUDXNKSW4542-64-46 03:21:00 Test Item Value Reference Range Interpretation Comments Monocytes # (test code 1.0 See_Comment [Aut omated message] The = Monocytes #) system which generated this result tra nsmitted reference range : <=0.8. The reference r annemarie was not used to int erpret this result as normal/abnormal . [facility] CenterKklkarlZCHCHFWTDJ1900-30-36 03:21:00 Test Item Value Reference Range Interpretation Comments Eosinophils # (test code 0.2 See_Comment [A utomated message] The = Eosinophils #) system whic h generated this result tra nsmitted reference range : <=0.5. The reference r annemarie was not used to int erpret this result as normal/abnormal . [facility] CenterKuchatsMRYPHVIZYA8626-39-26 03:21:00 Test Item Value Reference Range Interpretation Comments Segs (test code = Segs) 64.7 45.0-75.0 [facility]2017-01-01 03:21:00 Test Item Value Reference Range Interpretation Comments Total CK (test code = Total CK) 3725 12-[address] [facility] HospitalZdpuheuQPXDQDICOIVM5107-06-33 03:21:00 Test Item Value Reference Range Interpretation Comments AGAP (test code = AGAP) 14.1 10.0-20.0 [facility] HospitalOliseemNWNQBASZQJXS4792-36-64 03:21:00 Test Item Value Reference Range Interpretation Comments B/C Ratio (test code = B/C Ratio) 11 6-25 [facility] HospitalZqqelotQJKWHYAYBDZS1606-56-84 03:21:00 Test Item Value Reference Range Interpretation Comments Globulin (test code = Globulin) 3.2 2.7-4.[address] [facility] HospitalPlrpxslZIDLJXWJNTNU5482-39-42 03:21:00 Test Item Value Reference Range Interpretation Comments A/G Ratio (test code = A/G Ratio) 1.3 0.7-1.6 [facility] HospitalHoqmnoiGODTJEBOEEER0806-64-24 03:21:00 Test Item Value Reference Range Interpretation Comments Bili Total (test code = Bili Total) 0.4 0.2-1.3 [facility] HospitalOdbzpmgRNIEVPIPBSAQ9316-21-06 03:21:00 Test Item Value Reference Range Interpretation Comments eGFR (test code = eGFR) [address] [facility] HospitalMznmgyoXQIIOIIXIXNO0749-15-95 03:21:00 Test Item Value Reference Range Interpretation Comments Albumin Lvl (test code = Albumin Lvl) 4.2 3.5-5.0 [facility] HospitalBdnhdkeFMJKFZFTOSVI4365-97-05 03:21:00 Test Item Value Reference Range Interpretation Comments Alk Phos (test code = Alk Phos) 48 39-136 [facility] HospitalJvvplabNIXQBVCKIYFT5839-21-86 03:21:00 Test Item Value Reference Range Interpretation Comments AST (test code = AST) 144 See_Comment [Auto mated message] The system which ge nerated this result transmit abdelrahman reference range : <=37. The reference range was not used to interpr et this result as gurpreet l/abnormal. [facility] HospitalOsgraxkFLHNRHZKODRH3680-52-12 03:21:00 Test Item Value Reference Range Interpretation Comments Glucose Lvl (test code = Glucose Lvl) 75 70-99 [facility] HospitalFwlitxcOAVHNCTWCAIP1461-95-98 03:21:00 Test Item Value Reference Range Interpretation Comments BUN (test code = BUN) 11 7-22 [facility] HospitalLvgixjxEPANEUEWHAWP3007-66-36 03:21:00 Test Item Value Reference Range Interpretation Comments Potassium Lvl (test code = Potassium 4.1 3.5-5.1 Lvl) [facility] HospitalWlfwxokBPZZGVJJBFWB9520-79-12 03:21:00 Test Item Value Reference Range Interpretation Comments Creatinine Lvl (test code = Creatinine 1.00 0.50-1.40 Lvl) [facility] HospitalNoegspbRGSVOTMJJUVN3528-91-76 03:21:00 Test Item Value Reference Range Interpretation Comments Sodium Lvl (test code = Sodium Lvl) 140 135-145 [facility] HospitalWrdrsavVUJZLUZVCMFU6289-26-78 03:21:00 Test Item Value Reference Range Interpretation Comments Chloride Lvl (test code = Chloride Lvl) 106 95-109 [facility] HospitalIxncjfvQFDJJGAWMWSG2688-71-09 03:21:00 Test Item Value Reference Range Interpretation Comments CO2 (test code = CO2) 24 24-32 [facility] HospitalAegzjxqMOEMMMMNWLZR3209-20-93 03:21:00 Test Item Value Reference Range Interpretation Comments Total Protein (test code = Total 7.4 6.4-8.4 Protein) [facility] HospitalZmrordhRUZMJWLHTIIZ8267-46-14 03:21:00 Test Item Value Reference Range Interpretation Comments Calcium Lvl (test code = Calcium Lvl) 9.1 8.5-10.5 [facility] HospitalAtmxloyJDIKVYJPNNZX2647-97-55 03:21:00 Test Item Value Reference Range Interpretation Comments ALT (test code = ALT) 52 See_Comment [Auto mated message] The system which ge nerated this result transmit abdelrahman reference range : <=65. The reference range was not used to interpr et this result as gurpreet l/abnormal. [facility] CenterQpcpjaxRMZCHZZVJG9997-58-79 03:21:00 Test Item Value Reference Range Interpretation Comments MCV (test code = MCV) 86.0 80.0-94.0 [facility] CenterHsnutcuJFCRQVSYXB4919-47-08 03:21:00 Test Item Value Reference Range Interpretation Comments MCH (test code = MCH) 29.7 pg 27.0-31.0 [facility] CenterZaykdroPLZDUPMZGI3511-63-87 03:21:00 Test Item Value Reference Range Interpretation Comments Hct (test code = Hct) 41.0 42.0-54.0 [facility] CenterZstmxmtGMJHLNZXKQ5702-35-12 03:21:00 Test Item Value Reference Range Interpretation Comments RBC (test code = RBC) 4.77 4.70-6.10 [facility] CenterAobptpkGXQDXJRKTI8311-47-91 03:21:00 Test Item Value Reference Range Interpretation Comments WBC (test code = WBC) 8.8 3.7-10.4 [facility] CenterPhexwhjERBUGYFRHI4224-08-78 03:21:00 Test Item Value Reference Range Interpretation Comments Hgb (test code = Hgb) 14.2 14.0-18.0 [facility] CenterHmkzpwhKRJUHPWEWR3639-29-04 03:21:00 Test Item Value Reference Range Interpretation Comments Platelet (test code = Platelet) 141 133-450 [facility] CenterZtirenjNOSAYLQHWV2388-52-81 03:21:00 Test Item Value Reference Range Interpretation Comments MCHC (test code = MCHC) 34.5 32.0-36.0 [facility] CenterWcovmwyERRNAVLKZM2307-56-26 03:21:00 Test Item Value Reference Range Interpretation Comments RDW (test code = RDW) 13.5 11.5-14.5 [facility] CenterKqxuqnnZVGAYRFWPX6497-31-06 03:21:00 Test Item Value Reference Range Interpretation Comments MPV (test code = MPV) 8.9 7.4-10.4 [facility] CenterOaefhaxLCCLUDMMQQ4264-41-32 03:21:00 Test Item Value Reference Range Interpretation Comments Lymphocytes (test code = Lymphocytes) 21.1 20.0-40.0 [facility] CenterQzplponOQARIXVTVZ7846-23-09 03:21:00 Test Item Value Reference Range Interpretation Comments Monocytes (test code = Monocytes) 11.7 2.0-12.0 [facility] CenterGdegrlqZHIIGHLDWC2170-21-03 03:21:00 Test Item Value Reference Range Interpretation Comments Lymphocytes # (test code = Lymphocytes 1.8 1.0-5.5 #) [facility] CenterCnhfjygODQLOPYAZN8434-67-18 03:21:00 Test Item Value Reference Range Interpretation Comments Segs-Bands # (test code = Segs-Bands #) 5.7 1.5-8.1 [facility] CenterKkgrtcuAANZHYXSGA4190-74-56 03:21:00 Test Item Value Reference Range Interpretation Comments Eosinophils (test code = 1.7 See_Comment [A utomated message] The Eosinophils) system which ge nerated this result tra nsmitted reference range : <=4.0. The reference r annemarie was not used to int erpret this result as normal/abnormal . [facility] CenterTchqhqzGQHAXMKXQB2886-80-81 03:21:00 Test Item Value Reference Range Interpretation Comments Basophils (test code = 0.8 See_Comment [Aut omated message] The Basophils) system which ge nerated this result tra nsmitted reference range : <=1.0. The reference r anneamrie was not used to int erpret this result as normal/abnormal . [facility] CenterGtombupXNBUIAZECY0681-13-11 03:21:00 Test Item Value Reference Range Interpretation Comments Basophils # (test code 0.1 See_Comment [Aut omated message] The = Basophils #) system which generated this result tra nsmitted reference range : <=0.2. The reference r annemarie was not used to int erpret this result as normal/abnormal . [facility] CenterKfubousFYCRLAKFIN5243-12-33 03:21:00 Test Item Value Reference Range Interpretation Comments Monocytes # (test code 1.0 See_Comment [Aut omated message] The = Monocytes #) system which generated this result tra nsmitted reference range : <=0.8. The reference r annemarie was not used to int erpret this result as normal/abnormal . [facility] CenterTrolrmbTYUMKGXFGQ0433-99-68 03:21:00 Test Item Value Reference Range Interpretation Comments Eosinophils # (test code 0.2 See_Comment [A utomated message] The = Eosinophils #) system whic h generated this result tra nsmitted reference range : <=0.5. The reference r annemarie was not used to int erpret this result as normal/abnormal . [facility] CenterFlanjowQOTNPGDZSS8064-63-79 03:21:00 Test Item Value Reference Range Interpretation Comments Segs (test code = Segs) 64.7 45.0-75.0 [facility]2017-01-01 03:21:00 Test Item Value Reference Range Interpretation Comments Total CK (test code = Total CK) 3725 12-[address] [facility] HospitalRzbmphtTSDVRSHBLJUN3384-33-77 03:21:00 Test Item Value Reference Range Interpretation Comments AGAP (test code = AGAP) 14.1 10.0-20.0 [facility] HospitalVktzsywGAAYRYSUFDSV9003-08-41 03:21:00 Test Item Value Reference Range Interpretation Comments B/C Ratio (test code = B/C Ratio) 11 6-25 [facility] HospitalYlnczcmTZIYRKTLITWU5090-00-29 03:21:00 Test Item Value Reference Range Interpretation Comments Globulin (test code = Globulin) 3.2 2.7-4.[address] [facility] HospitalDaoxkzhDVRNSVGFPRSX4122-42-15 03:21:00 Test Item Value Reference Range Interpretation Comments A/G Ratio (test code = A/G Ratio) 1.3 0.7-1.6 [facility] HospitalZwgngaoRQJFYSQAYWVM0934-22-49 03:21:00 Test Item Value Reference Range Interpretation Comments Bili Total (test code = Bili Total) 0.4 0.2-1.3 [facility] HospitalLidxgtbFTCYSMNYFPBJ6795-58-71 03:21:00 Test Item Value Reference Range Interpretation Comments eGFR (test code = eGFR) [address] [facility] HospitalUxvwkrmRLLUYDMUCLSD0952-49-63 03:21:00 Test Item Value Reference Range Interpretation Comments Albumin Lvl (test code = Albumin Lvl) 4.2 3.5-5.0 [facility] HospitalGdywquiLQDTGBLBDPXZ8211-41-98 03:21:00 Test Item Value Reference Range Interpretation Comments Alk Phos (test code = Alk Phos) 48 39-[address] [facility] HospitalYqgssazGKWIHFKOZTDL2107-39-26 03:21:00 Test Item Value Reference Range Interpretation Comments AST (test code = AST) 144 See_Comment [Auto mated message] The system which ge nerated this result transmit abdelrahman reference range : <=37. The reference range was not used to interpr et this result as gurpreet l/abnormal. [facility] HospitalBbqvuclRFBNZQBDULLD4570-50-05 03:21:00 Test Item Value Reference Range Interpretation Comments Glucose Lvl (test code = Glucose Lvl) 75 70-99 [facility] HospitalUwwzzrwFCVCGIQJUNSY1592-01-77 03:21:00 Test Item Value Reference Range Interpretation Comments BUN (test code = BUN) 11 7-22 [facility] HospitalEoyonapSQOBNRMIZAXS6938-84-34 03:21:00 Test Item Value Reference Range Interpretation Comments Potassium Lvl (test code = Potassium 4.1 3.5-5.1 Lvl) [facility] HospitalBazdinvJZOXMZLNSNWH4914-43-96 03:21:00 Test Item Value Reference Range Interpretation Comments Creatinine Lvl (test code = Creatinine 1.00 0.50-1.40 Lvl) [facility] HospitalCbmfejuJZIQVEQUWPWG7196-29-18 03:21:00 Test Item Value Reference Range Interpretation Comments Sodium Lvl (test code = Sodium Lvl) 140 135-145 [facility] HospitalHbdfgivPPFXBSDJXJJY9773-02-31 03:21:00 Test Item Value Reference Range Interpretation Comments Chloride Lvl (test code = Chloride Lvl) 106 95-109 [facility] HospitalKzgsrpnUKJAKIMOHLNO3546-19-88 03:21:00 Test Item Value Reference Range Interpretation Comments CO2 (test code = CO2) 24 24-32 [facility] HospitalIkyhfhzQCXIPXLPJUSZ9997-50-77 03:21:00 Test Item Value Reference Range Interpretation Comments Total Protein (test code = Total 7.4 6.4-8.4 Protein) [facility] HospitalZhmqrskBWYGZQFZPOSD2033-45-72 03:21:00 Test Item Value Reference Range Interpretation Comments Calcium Lvl (test code = Calcium Lvl) 9.1 8.5-10.[address] [facility] HospitalHecpbmvRMATYUEAWEKU1465-36-92 03:21:00 Test Item Value Reference Range Interpretation Comments ALT (test code = ALT) 52 See_Comment [Auto mated message] The system which ge nerated this result transmit abdelrahman reference range : <=65. The reference range was not used to interpr et this result as gurpreet l/abnormal. [facility] CenterTplrpdnDCHWVESFZY0968-39-11 03:21:00 Test Item Value Reference Range Interpretation Comments MCV (test code = MCV) 86.0 80.0-94.0 [facility] CenterBqblgpzCBCBHJWPJZ4461-02-51 03:21:00 Test Item Value Reference Range Interpretation Comments MCH (test code = MCH) 29.7 pg 27.0-31.0 [facility] CenterWwtggjpUFTRNHDYNW8765-39-16 03:21:00 Test Item Value Reference Range Interpretation Comments Hct (test code = Hct) 41.0 42.0-54.0 [facility] CenterRybzbokCYYRBOVQNE9666-22-58 03:21:00 Test Item Value Reference Range Interpretation Comments RBC (test code = RBC) 4.77 4.70-6.10 [facility] CenterEnsqcffVZCKUDIQGJ4607-61-55 03:21:00 Test Item Value Reference Range Interpretation Comments WBC (test code = WBC) 8.8 3.7-10.4 [facility] CenterPgdvnekQUNAMCNHBN6607-87-53 03:21:00 Test Item Value Reference Range Interpretation Comments Hgb (test code = Hgb) 14.2 14.0-18.0 [facility] CenterIzdomwuMQEJBMTFMA2316-69-27 03:21:00 Test Item Value Reference Range Interpretation Comments Platelet (test code = Platelet) 141 133-450 [facility] CenterZysyaxjUUGPKROEOT6444-50-12 03:21:00 Test Item Value Reference Range Interpretation Comments MCHC (test code = MCHC) 34.5 32.0-36.0 [facility] CenterIbzihguFCSRSNXWWN9016-34-40 03:21:00 Test Item Value Reference Range Interpretation Comments RDW (test code = RDW) 13.5 11.5-14.5 [facility] CenterBbjzxxrADYOIWWNYI0489-83-37 03:21:00 Test Item Value Reference Range Interpretation Comments MPV (test code = MPV) 8.9 7.4-10.4 [facility] CenterUuuetshXEPDRJGZJZ9571-36-84 03:21:00 Test Item Value Reference Range Interpretation Comments Lymphocytes (test code = Lymphocytes) 21.1 20.0-40.0 [facility] CenterXvswipcAUIONCYYJX7230-45-28 03:21:00 Test Item Value Reference Range Interpretation Comments Monocytes (test code = Monocytes) 11.7 2.0-12.0 [facility] CenterNdfxnyvFPBYUXUPBO0071-42-03 03:21:00 Test Item Value Reference Range Interpretation Comments Lymphocytes # (test code = Lymphocytes 1.8 1.0-5.5 #) [facility] CenterWqwbdlzUXQULRVEUP7192-10-31 03:21:00 Test Item Value Reference Range Interpretation Comments Segs-Bands # (test code = Segs-Bands #) 5.7 1.5-8.1 [facility] CenterWptxyznXBHNRWQKSX4179-28-95 03:21:00 Test Item Value Reference Range Interpretation Comments Eosinophils (test code = 1.7 See_Comment [A utomated message] The Eosinophils) system which ge nerated this result tra nsmitted reference range : <=4.0. The reference r annemarie was not used to int erpret this result as normal/abnormal . [facility]FflxnltIVGXFAQPLL1010-23-29 03:21:00 Test Item Value Reference Range Interpretation Comments Basophils (test code = 0.8 See_Comment [Aut omated message] The Basophils) system which ge nerated this result tra nsmitted reference range : <=1.0. The reference r annemarie was not used to int erpret this result as normal/abnormal . [facility] CenterZkoxlviSCIMTEIKYQ9043-31-86 03:21:00 Test Item Value Reference Range Interpretation Comments Basophils # (test code 0.1 See_Comment [Aut omated message] The = Basophils #) system which generated this result tra nsmitted reference range : <=0.2. The reference r annemarie was not used to int erpret this result as normal/abnormal . [facility] CenterOxqybwaOSKIOPWOIA7065-96-44 03:21:00 Test Item Value Reference Range Interpretation Comments Monocytes # (test code 1.0 See_Comment [Aut omated message] The = Monocytes #) system which generated this result tra nsmitted reference range : <=0.8. The reference r annemarie was not used to int erpret this result as normal/abnormal . [facility] CenterSkavxfgUXLANLFFPR5908-79-21 03:21:00 Test Item Value Reference Range Interpretation Comments Eosinophils # (test code 0.2 See_Comment [A utomated message] The = Eosinophils #) system whic h generated this result tra nsmitted reference range : <=0.5. The reference r annemarie was not used to int erpret this result as normal/abnormal . [facility] CenterBvtqpowNYSRTYBPKL2733-09-11 03:21:00 Test Item Value Reference Range Interpretation Comments Segs (test code = Segs) 64.7 45.0-75.0 [facility] JUWROPL1237-11-07 03:21:00 Test Item Value Reference Range Interpretation Comments Total CK (test code = Total CK) 3725 12-[address] [facility] HospitalLrezoqiSEGDUZMUTQYP1219-07-26 03:21:00 Test Item Value Reference Range Interpretation Comments AGAP (test code = AGAP) 14.1 10.0-20.0 [facility] HospitalQrzdlgtZKXNIPALCLWG0260-37-87 03:21:00 Test Item Value Reference Range Interpretation Comments B/C Ratio (test code = B/C Ratio) 11 6-25 [facility] HospitalLarzmghNPKPMCHAHVTV5362-80-95 03:21:00 Test Item Value Reference Range Interpretation Comments Globulin (test code = Globulin) 3.2 2.7-4.2 [facility] HospitalKfxlajrCWATGQAQDEVE4349-00-09 03:21:00 Test Item Value Reference Range Interpretation Comments A/G Ratio (test code = A/G Ratio) 1.3 0.7-1.6 [facility] HospitalCgukxizOXVBQKIFBDUT6198-24-28 03:21:00 Test Item Value Reference Range Interpretation Comments Bili Total (test code = Bili Total) 0.4 0.2-1.3 [facility] HospitalTvdgeugXTJQVEJTNBSH2788-21-39 03:21:00 Test Item Value Reference Range Interpretation Comments eGFR (test code = eGFR) [address] [facility] HospitalUuuenayBVIQRSVHZOWO9805-41-83 03:21:00 Test Item Value Reference Range Interpretation Comments Albumin Lvl (test code = Albumin Lvl) 4.2 3.5-5.0 [facility] HospitalFdmxiflTDZOLWUKAXPI3328-74-13 03:21:00 Test Item Value Reference Range Interpretation Comments Alk Phos (test code = Alk Phos) 48 39-136 [facility] HospitalVgwrqblWXABNVNAPJFO1286-20-78 03:21:00 Test Item Value Reference Range Interpretation Comments AST (test code = AST) 144 See_Comment [Auto mated message] The system which ge nerated this result transmit abdelrahman reference range : <=37. The reference range was not used to interpr et this result as gurpreet l/abnormal. [facility] HospitalYmhxkxmNCVNPPBJZBCG1767-27-16 03:21:00 Test Item Value Reference Range Interpretation Comments Glucose Lvl (test code = Glucose Lvl) 75 70-99 [facility] HospitalSkesjqdNVVDQRMQUMPV0576-75-99 03:21:00 Test Item Value Reference Range Interpretation Comments BUN (test code = BUN) 11 7-[address] [facility] HospitalFdisqzsSVJXVKRHWFKC9398-94-35 03:21:00 Test Item Value Reference Range Interpretation Comments Potassium Lvl (test code = Potassium 4.1 3.5-5.1 Lvl) [facility] HospitalThwnejsRTNBWJFBLINP2691-25-65 03:21:00 Test Item Value Reference Range Interpretation Comments Creatinine Lvl (test code = Creatinine 1.00 0.50-1.40 Lvl) [facility] HospitalYgrhhjuKFKDANMCOOFF3862-07-01 03:21:00 Test Item Value Reference Range Interpretation Comments Sodium Lvl (test code = Sodium Lvl) 140 135-145 [facility] HospitalEcplykpPOQLGRAUVVHN0629-69-42 03:21:00 Test Item Value Reference Range Interpretation Comments Chloride Lvl (test code = Chloride Lvl) 106 95-[address] [facility] HospitalKguwegrGDSXICUEWIVW3433-62-75 03:21:00 Test Item Value Reference Range Interpretation Comments CO2 (test code = CO2) 24 24-32 [facility] HospitalOvjqnmxOEQLBSCNCIHJ1629-00-74 03:21:00 Test Item Value Reference Range Interpretation Comments Total Protein (test code = Total 7.4 6.4-8.4 Protein) [facility] HospitalCprskohGPZJNHGGALSL4703-94-89 03:21:00 Test Item Value Reference Range Interpretation Comments Calcium Lvl (test code = Calcium Lvl) 9.1 8.5-10.5 [facility] HospitalVqqyapjMEEDIQJFAJTA8524-61-29 03:21:00 Test Item Value Reference Range Interpretation Comments ALT (test code = ALT) 52 See_Comment [Auto mated message] The system which ge nerated this result transmit abdelrahman reference range : <=65. The reference range was not used to interpr et this result as gurpreet l/abnormal. [facility] CenterHljrnzzLDABHDJGHM8508-88-30 03:21:00 Test Item Value Reference Range Interpretation Comments MCV (test code = MCV) 86.0 80.0-94.0 [facility] CenterFaobnniKSFVYTPVNO4774-30-78 03:21:00 Test Item Value Reference Range Interpretation Comments MCH (test code = MCH) 29.7 pg 27.0-31.0 [facility] CenterIkzbxxyFSKDFNWPWD7516-33-30 03:21:00 Test Item Value Reference Range Interpretation Comments Hct (test code = Hct) 41.0 42.0-54.0 [facility] CenterXyavxglTDOSBZYZEJ0462-83-43 03:21:00 Test Item Value Reference Range Interpretation Comments RBC (test code = RBC) 4.77 4.70-6.10 [facility] CenterJtyisivQLIEXPIQRZ4407-11-14 03:21:00 Test Item Value Reference Range Interpretation Comments WBC (test code = WBC) 8.8 3.7-10.4 [facility] CenterWawcpmyHWIIYOEUOU0226-98-96 03:21:00 Test Item Value Reference Range Interpretation Comments Hgb (test code = Hgb) 14.2 14.0-18.0 [facility] CenterUhuooxvIWAUDZWUTI8856-04-84 03:21:00 Test Item Value Reference Range Interpretation Comments Platelet (test code = Platelet) 141 133-450 [facility] CenterHearrhkVQNVFJDQNG8200-66-43 03:21:00 Test Item Value Reference Range Interpretation Comments MCHC (test code = MCHC) 34.5 32.0-36.0 [facility] CenterQzpfhgrVSGNIICMCJ9184-39-40 03:21:00 Test Item Value Reference Range Interpretation Comments RDW (test code = RDW) 13.5 11.5-14.5 [facility] CenterFdsmrcdHAFZXTYOYK5736-40-06 03:21:00 Test Item Value Reference Range Interpretation Comments MPV (test code = MPV) 8.9 7.4-10.4 [facility] CenterYhootutGYCCLUCNMI0881-21-68 03:21:00 Test Item Value Reference Range Interpretation Comments Lymphocytes (test code = Lymphocytes) 21.1 20.0-40.0 [facility] CenterXuonduxUEFVHNVPJW8803-88-27 03:21:00 Test Item Value Reference Range Interpretation Comments Monocytes (test code = Monocytes) 11.7 2.0-12.0 [facility] CenterHwntohlZRRMIXUMVR4462-57-87 03:21:00 Test Item Value Reference Range Interpretation Comments Lymphocytes # (test code = Lymphocytes 1.8 1.0-5.5 #) [facility] CenterIoryawgZBDGNWWLZP3326-42-93 03:21:00 Test Item Value Reference Range Interpretation Comments Segs-Bands # (test code = Segs-Bands #) 5.7 1.5-8.1 [facility] CenterZqmhkjrOMALATAWTF7779-43-12 03:21:00 Test Item Value Reference Range Interpretation Comments Eosinophils (test code = 1.7 See_Comment [A utomated message] The Eosinophils) system which ge nerated this result tra nsmitted reference range : <=4.0. The reference r annemarie was not used to int erpret this result as normal/abnormal . [facility] CenterYbdcsutFIHMDDOOBH4556-49-90 03:21:00 Test Item Value Reference Range Interpretation Comments Basophils (test code = 0.8 See_Comment [Aut omated message] The Basophils) system which ge nerated this result tra nsmitted reference range : <=1.0. The reference r annemarie was not used to int erpret this result as normal/abnormal . [facility] CenterIzodgnaPVPKKMRMMY4459-30-60 03:21:00 Test Item Value Reference Range Interpretation Comments Basophils # (test code 0.1 See_Comment [Aut omated message] The = Basophils #) system which generated this result tra nsmitted reference range : <=0.2. The reference r annemarie was not used to int erpret this result as normal/abnormal . [facility] CenterNtzbqgbALPUPVJOGW6387-81-22 03:21:00 Test Item Value Reference Range Interpretation Comments Monocytes # (test code 1.0 See_Comment [Aut omated message] The = Monocytes #) system which generated this result tra nsmitted reference range : <=0.8. The reference r annemarie was not used to int erpret this result as normal/abnormal . [facility] CenterSbytpadEYHCGHDBXN6873-71-88 03:21:00 Test Item Value Reference Range Interpretation Comments Eosinophils # (test code 0.2 See_Comment [A utomated message] The = Eosinophils #) system whic h generated this result tra nsmitted reference range : <=0.5. The reference r annemarie was not used to int erpret this result as normal/abnormal . [facility]bergTqvmsegKSAGTPXEHA2981-08-18 03:21:00 Test Item Value Reference Range Interpretation Comments Segs (test code = Segs) 64.7 45.0-75.0 [facility] LZBGFIJ2276-17-27 03:21:00 Test Item Value Reference Range Interpretation Comments Total CK (test code = Total CK) 3725 12-[address] [facility] HospitalNrbvkeuSBYFGZKNGZPY9549-66-90 03:21:00 Test Item Value Reference Range Interpretation Comments AGAP (test code = AGAP) 14.1 10.0-20.0 [facility] HospitalKecirhlMOCQSJETYZQM1264-48-02 03:21:00 Test Item Value Reference Range Interpretation Comments B/C Ratio (test code = B/C Ratio) 11 6-25 [facility] HospitalIzxzaaiWQDEJJRFIXNT3712-60-82 03:21:00 Test Item Value Reference Range Interpretation Comments Globulin (test code = Globulin) 3.2 2.7-4.[address] [facility] HospitalReppnpsQOATMDYZNQKP7226-05-22 03:21:00 Test Item Value Reference Range Interpretation Comments A/G Ratio (test code = A/G Ratio) 1.3 0.7-1.6 [facility] HospitalFcoixxaQXSKUTNFIGFW5869-08-92 03:21:00 Test Item Value Reference Range Interpretation Comments Bili Total (test code = Bili Total) 0.4 0.2-1.3 [facility] HospitalRvagebgDQULWLPFUDFQ9472-26-64 03:21:00 Test Item Value Reference Range Interpretation Comments eGFR (test code = eGFR) [address] [facility] HospitalObhxplvJAFWHUUHHOYQ4627-66-51 03:21:00 Test Item Value Reference Range Interpretation Comments Albumin Lvl (test code = Albumin Lvl) 4.2 3.5-5.0 [facility] HospitalEpiwwpmKYSCPUUEHSVA8071-95-09 03:21:00 Test Item Value Reference Range Interpretation Comments Alk Phos (test code = Alk Phos) 48 39-136 [facility] HospitalHobpjzbJSWCBFHJFCYE7134-92-65 03:21:00 Test Item Value Reference Range Interpretation Comments AST (test code = AST) 144 See_Comment [Auto mated message] The system which ge nerated this result transmit abdelrahman reference range : <=37. The reference range was not used to interpr et this result as gurpreet l/abnormal. [facility] HospitalEimnyeaHTZJVKVGMPLB9852-19-63 03:21:00 Test Item Value Reference Range Interpretation Comments Glucose Lvl (test code = Glucose Lvl) 75 70-99 [facility] HospitalGpyefmfPQUWVACRDBLH6153-31-55 03:21:00 Test Item Value Reference Range Interpretation Comments BUN (test code = BUN) 11 7-22 [facility] HospitalVaqggymRRXJBEPMYDIN2656-54-37 03:21:00 Test Item Value Reference Range Interpretation Comments Potassium Lvl (test code = Potassium 4.1 3.5-5.1 Lvl) [facility] HospitalRqkoumcPOGZHGRUCCZK3127-16-74 03:21:00 Test Item Value Reference Range Interpretation Comments Creatinine Lvl (test code = Creatinine 1.00 0.50-1.40 Lvl) [facility] HospitalLmsxwilRIVREMGPTZGU3952-53-98 03:21:00 Test Item Value Reference Range Interpretation Comments Sodium Lvl (test code = Sodium Lvl) 140 135-145 [facility] HospitalLeetmwqTWVDNWHOIDWE0412-40-52 03:21:00 Test Item Value Reference Range Interpretation Comments Chloride Lvl (test code = Chloride Lvl) 106 95-109 [facility] HospitalQywsthpHZMDOTGPXYEA8520-10-23 03:21:00 Test Item Value Reference Range Interpretation Comments CO2 (test code = CO2) 24 24-32 [facility] HospitalZxbkmlxFWSSZKJQCSOB4018-41-85 03:21:00 Test Item Value Reference Range Interpretation Comments Total Protein (test code = Total 7.4 6.4-8.4 Protein) [facility] HospitalJcqydxzBEMMBAUSMHMS8510-70-54 03:21:00 Test Item Value Reference Range Interpretation Comments Calcium Lvl (test code = Calcium Lvl) 9.1 8.5-10.5 [facility] HospitalTfyvgyaRWESXEVNGJPH1708-07-90 03:21:00 Test Item Value Reference Range Interpretation Comments ALT (test code = ALT) 52 See_Comment [Auto mated message] The system which ge nerated this result transmit abdelrahman reference range : <=65. The reference range was not used to interpr et this result as gurpreet l/abnormal. [facility] CenterMojwireUBNWSZGUZN9111-61-41 03:21:00 Test Item Value Reference Range Interpretation Comments MCV (test code = MCV) 86.0 80.0-94.0 [facility] CenterCauuzxlAUFMTNITKM4124-21-08 03:21:00 Test Item Value Reference Range Interpretation Comments MCH (test code = MCH) 29.7 pg 27.0-31.0 [facility] CenterXsptprzLAKFAYGVXY6915-09-30 03:21:00 Test Item Value Reference Range Interpretation Comments Hct (test code = Hct) 41.0 42.0-54.0 [facility] CenterIpleihoSVDQKNDPFK3833-90-70 03:21:00 Test Item Value Reference Range Interpretation Comments RBC (test code = RBC) 4.77 4.70-6.10 [facility] CenterXpzjydeDQYQRNJTOI3829-33-27 03:21:00 Test Item Value Reference Range Interpretation Comments WBC (test code = WBC) 8.8 3.7-10.4 [facility] CenterXzrhaqgPNEBJAFOSM2262-40-12 03:21:00 Test Item Value Reference Range Interpretation Comments Hgb (test code = Hgb) 14.2 14.0-18.0 [facility] CenterNraxrkxCCUJXORSYB5988-08-65 03:21:00 Test Item Value Reference Range Interpretation Comments Platelet (test code = Platelet) 141 133-450 [facility] CenterCrmjoweUGVWCGWGMO5093-36-80 03:21:00 Test Item Value Reference Range Interpretation Comments MCHC (test code = MCHC) 34.5 32.0-36.0 [facility] CenterXxwkicxDBZFGBHBHP9973-12-85 03:21:00 Test Item Value Reference Range Interpretation Comments RDW (test code = RDW) 13.5 11.5-14.5 [facility] CenterShxgwxeZTAQCHYCLX5706-88-71 03:21:00 Test Item Value Reference Range Interpretation Comments MPV (test code = MPV) 8.9 7.4-10.4 [facility] CenterVyovezxEEVDCMHEVT1099-35-46 03:21:00 Test Item Value Reference Range Interpretation Comments Lymphocytes (test code = Lymphocytes) 21.1 20.0-40.0 [facility] CenterNisdkewRPSEQYAIPP5568-08-04 03:21:00 Test Item Value Reference Range Interpretation Comments Monocytes (test code = Monocytes) 11.7 2.0-12.0 [facility] CenterWdjgngoWHFYVVLLPK9520-23-13 03:21:00 Test Item Value Reference Range Interpretation Comments Lymphocytes # (test code = Lymphocytes 1.8 1.0-5.5 #) [facility] CenterKwgwzruPSCHEYYYKN5755-15-04 03:21:00 Test Item Value Reference Range Interpretation Comments Segs-Bands # (test code = Segs-Bands #) 5.7 1.5-8.1 [facility]PpczmsnYINDGKYEEK2548-21-81 03:21:00 Test Item Value Reference Range Interpretation Comments Eosinophils (test code = 1.7 See_Comment [A utomated message] The Eosinophils) system which ge nerated this result tra nsmitted reference range : <=4.0. The reference r annemarie was not used to int erpret this result as normal/abnormal . [facility] CenterVmpcwbbTGWDZSBMPJ3786-68-49 03:21:00 Test Item Value Reference Range Interpretation Comments Basophils (test code = 0.8 See_Comment [Aut omated message] The Basophils) system which ge nerated this result tra nsmitted reference range : <=1.0. The reference r annemarie was not used to int erpret this result as normal/abnormal . [facility] CenterOeedunbVIWVQAZLZU5735-38-25 03:21:00 Test Item Value Reference Range Interpretation Comments Basophils # (test code 0.1 See_Comment [Aut omated message] The = Basophils #) system which generated this result tra nsmitted reference range : <=0.2. The reference r annemarie was not used to int erpret this result as normal/abnormal . [facility] CenterKhmkkmkKZIAXNWUHF7528-09-82 03:21:00 Test Item Value Reference Range Interpretation Comments Monocytes # (test code 1.0 See_Comment [Aut omated message] The = Monocytes #) system which generated this result tra nsmitted reference range : <=0.8. The reference r annemarie was not used to int erpret this result as normal/abnormal . [facility] CenterUftqvafZODMCFFNOT7417-19-57 03:21:00 Test Item Value Reference Range Interpretation Comments Eosinophils # (test code 0.2 See_Comment [A utomated message] The = Eosinophils #) system whic h generated this result tra nsmitted reference range : <=0.5. The reference r annemarie was not used to int erpret this result as normal/abnormal . [facility] CenterXzqzujdMZAXIADWRA7950-63-90 03:21:00 Test Item Value Reference Range Interpretation Comments Segs (test code = Segs) 64.7 45.0-75.0 [facility] PWNMICP6042-09-47 03:21:00 Test Item Value Reference Range Interpretation Comments Total CK (test code = Total CK) 3725 12-[address] [facility] HospitalLjzyihsPUPNIJIPRQQN1598-57-14 03:21:00 Test Item Value Reference Range Interpretation Comments AGAP (test code = AGAP) 14.1 10.0-20.0 [facility] HospitalPcjnvowWBLEZCYCEIXJ4563-29-81 03:21:00 Test Item Value Reference Range Interpretation Comments B/C Ratio (test code = B/C Ratio) 11 6-25 [facility] HospitalKlkkqsjKFVDTQGIVKWK5682-40-99 03:21:00 Test Item Value Reference Range Interpretation Comments Globulin (test code = Globulin) 3.2 2.7-4.[address] [facility] HospitalZoqjrvoWGJBNVPKTSTE3859-31-44 03:21:00 Test Item Value Reference Range Interpretation Comments A/G Ratio (test code = A/G Ratio) 1.3 0.7-1.6 [facility] HospitalJdqhahpHKWGWYRYBRHV2281-34-67 03:21:00 Test Item Value Reference Range Interpretation Comments Bili Total (test code = Bili Total) 0.4 0.2-1.3 [facility] HospitalYpxdoeiQVUXNILKYGFL0692-61-47 03:21:00 Test Item Value Reference Range Interpretation Comments eGFR (test code = eGFR) [address] [facility] HospitalAkkosrxRJAUQQYXKTMT4633-81-13 03:21:00 Test Item Value Reference Range Interpretation Comments Albumin Lvl (test code = Albumin Lvl) 4.2 3.5-5.0 [facility] HospitalLxiyzrmRNTYQENSMKTR1513-59-35 03:21:00 Test Item Value Reference Range Interpretation Comments Alk Phos (test code = Alk Phos) 48 39-136 [facility] HospitalCtlrjorKPCZUENLSYRP3459-52-53 03:21:00 Test Item Value Reference Range Interpretation Comments AST (test code = AST) 144 See_Comment [Auto mated message] The system which ge nerated this result transmit abdelrahman reference range : <=37. The reference range was not used to interpr et this result as gurpreet l/abnormal. [facility] HospitalGgrtlsfESAHLEFXTHSV8907-44-41 03:21:00 Test Item Value Reference Range Interpretation Comments Glucose Lvl (test code = Glucose Lvl) 75 70-99 [facility] HospitalNqbyhpoSNKJNCTVVFBF9235-01-34 03:21:00 Test Item Value Reference Range Interpretation Comments BUN (test code = BUN) 11 7-22 [facility] HospitalXrmzeaqWSKRZTWAYKTE1817-74-27 03:21:00 Test Item Value Reference Range Interpretation Comments Potassium Lvl (test code = Potassium 4.1 3.5-5.1 Lvl) [facility] HospitalUuyazezVBGTQLAYQZWP1556-97-37 03:21:00 Test Item Value Reference Range Interpretation Comments Creatinine Lvl (test code = Creatinine 1.00 0.50-1.40 Lvl) [facility] HospitalFfrhtuzKJSHZWYNGHBI4754-28-20 03:21:00 Test Item Value Reference Range Interpretation Comments Sodium Lvl (test code = Sodium Lvl) 140 135-[address] [facility] HospitalYqkkckzBPFCKMDNTVQE4003-66-43 03:21:00 Test Item Value Reference Range Interpretation Comments Chloride Lvl (test code = Chloride Lvl) 106 95-109 [facility] HospitalAufmrndANTCPMMWNYKV3111-61-52 03:21:00 Test Item Value Reference Range Interpretation Comments CO2 (test code = CO2) 24 24-32 [facility] HospitalXyfpfseFTAPZRLCISWV2738-45-40 03:21:00 Test Item Value Reference Range Interpretation Comments Total Protein (test code = Total 7.4 6.4-8.4 Protein) [facility] HospitalRfjqcwqWZGUDTVEIBIQ2446-89-63 03:21:00 Test Item Value Reference Range Interpretation Comments Calcium Lvl (test code = Calcium Lvl) 9.1 8.5-10.[address] [facility] HospitalOugsmptQRYJIAAAFYOD2381-17-78 03:21:00 Test Item Value Reference Range Interpretation Comments ALT (test code = ALT) 52 See_Comment [Auto mated message] The system which ge nerated this result transmit abdelrahman reference range : <=65. The reference range was not used to interpr et this result as gurpreet l/abnormal. [facility] CenterWymjkyyPAWKNNAYFK8035-29-84 03:21:00 Test Item Value Reference Range Interpretation Comments MCV (test code = MCV) 86.0 80.0-94.0 [facility]XldfvwpVWXQWAGBKR7899-98-16 03:21:00 Test Item Value Reference Range Interpretation Comments MCH (test code = MCH) 29.7 pg 27.0-31.0 [facility] CenterFmtvdveWUVVVKHXHM2372-74-85 03:21:00 Test Item Value Reference Range Interpretation Comments Hct (test code = Hct) 41.0 42.0-54.0 [facility] CenterOlxrwbcCZCEYWRRNN4486-46-99 03:21:00 Test Item Value Reference Range Interpretation Comments RBC (test code = RBC) 4.77 4.70-6.10 [facility] CenterEgtofvnTBFHDQJJKN4662-42-00 03:21:00 Test Item Value Reference Range Interpretation Comments WBC (test code = WBC) 8.8 3.7-10.4 [facility] CenterRuqhmkkMWUFNPGVTX5333-01-41 03:21:00 Test Item Value Reference Range Interpretation Comments Hgb (test code = Hgb) 14.2 14.0-18.0 [facility] CenterXyllqcfABZRVSLTSO3149-08-68 03:21:00 Test Item Value Reference Range Interpretation Comments Platelet (test code = Platelet) 141 133-450 [facility] CenterXzolfcjZXTEAUQLKB7144-28-08 03:21:00 Test Item Value Reference Range Interpretation Comments MCHC (test code = MCHC) 34.5 32.0-36.0 [facility] CenterLdphhwmGEPURUBHST2670-92-73 03:21:00 Test Item Value Reference Range Interpretation Comments RDW (test code = RDW) 13.5 11.5-14.5 [facility]YytrgyoMFLSJDICZY6061-36-29 03:21:00 Test Item Value Reference Range Interpretation Comments MPV (test code = MPV) 8.9 7.4-10.4 [facility] CenterQsnwmqtFRBNICUUPR1641-11-20 03:21:00 Test Item Value Reference Range Interpretation Comments Lymphocytes (test code = Lymphocytes) 21.1 20.0-40.0 [facility] CenterHcjtppjWGPQFJBLAW5440-28-69 03:21:00 Test Item Value Reference Range Interpretation Comments Monocytes (test code = Monocytes) 11.7 2.0-12.0 [facility] CenterNsmnefiOVKMSKQMCE3273-89-05 03:21:00 Test Item Value Reference Range Interpretation Comments Lymphocytes # (test code = Lymphocytes 1.8 1.0-5.5 #) [facility] CenterWanywvgHQUNTVQKTS1030-88-87 03:21:00 Test Item Value Reference Range Interpretation Comments Segs-Bands # (test code = Segs-Bands #) 5.7 1.5-8.1 [facility] CenterQgyxrnfYZRXGTESGW6380-72-14 03:21:00 Test Item Value Reference Range Interpretation Comments Eosinophils (test code = 1.7 See_Comment [A utomated message] The Eosinophils) system which ge nerated this result tra nsmitted reference range : <=4.0. The reference r annemarie was not used to int erpret this result as normal/abnormal . [facility] CenterVfblbgqJIIMZLCKNO8520-92-14 03:21:00 Test Item Value Reference Range Interpretation Comments Basophils (test code = 0.8 See_Comment [Aut omated message] The Basophils) system which ge nerated this result tra nsmitted reference range : <=1.0. The reference r annemarie was not used to int erpret this result as normal/abnormal . [facility] CenterCbfontgJOAKNNWOOF7731-72-45 03:21:00 Test Item Value Reference Range Interpretation Comments Basophils # (test code 0.1 See_Comment [Aut omated message] The = Basophils #) system which generated this result tra nsmitted reference range : <=0.2. The reference r annemarie was not used to int erpret this result as normal/abnormal . [facility] CenterDxdtcbtSAOPCYYADN6042-70-47 03:21:00 Test Item Value Reference Range Interpretation Comments Monocytes # (test code 1.0 See_Comment [Aut omated message] The = Monocytes #) system which generated this result tra nsmitted reference range : <=0.8. The reference r annemarie was not used to int erpret this result as normal/abnormal . [facility] CenterKuouujjOIIJIYOLBD7398-49-14 03:21:00 Test Item Value Reference Range Interpretation Comments Eosinophils # (test code 0.2 See_Comment [A utomated message] The = Eosinophils #) system whic h generated this result tra nsmitted reference range : <=0.5. The reference r annemarie was not used to int erpret this result as normal/abnormal . [facility] CenterKgbmuhsXQPPPRSHBB2373-35-24 03:21:00 Test Item Value Reference Range Interpretation Comments Segs (test code = Segs) 64.7 45.0-75.0 [facility]CARDICORE[facility] HOS[facility]ITALTCBIDKA7879-07-48 03:21:00 Test Item Value Reference Range Interpretation Comments Total CK (test code = Total CK) 3725 12-[address] [facility] HospitalGrwzweeHHKGHQYZEHPU3729-50-15 03:21:00 Test Item Value Reference Range Interpretation Comments AGAP (test code = AGAP) 14.1 10.0-20.0 [facility] HospitalDdylammPIWLYDCOZNRW7479-84-00 03:21:00 Test Item Value Reference Range Interpretation Comments B/C Ratio (test code = B/C Ratio) 11 6-25 [facility] HospitalBgpcreoBJGCUAOQBGTK9998-07-94 03:21:00 Test Item Value Reference Range Interpretation Comments Globulin (test code = Globulin) 3.2 2.7-4.2 [facility] HospitalSigsirdRCAZPWFDYUTC3289-73-54 03:21:00 Test Item Value Reference Range Interpretation Comments A/G Ratio (test code = A/G Ratio) 1.3 0.7-1.6 [facility] HospitalLzqwwrwFZFQLCVVWOPO1293-04-68 03:21:00 Test Item Value Reference Range Interpretation Comments Bili Total (test code = Bili Total) 0.4 0.2-1.3 [facility] HospitalUplvtbcDXHBJLOVLBON2879-76-41 03:21:00 Test Item Value Reference Range Interpretation Comments eGFR (test code = eGFR) 102 [facility] HospitalEufunzpHSJKHCLAJOSG5067-18-48 03:21:00 Test Item Value Reference Range Interpretation Comments Albumin Lvl (test code = Albumin Lvl) 4.2 3.5-5.0 [facility] HospitalAxoaxxsKJHTHLXSRRJS3704-29-12 03:21:00 Test Item Value Reference Range Interpretation Comments Alk Phos (test code = Alk Phos) 48 39-136 [facility] HospitalNkrpwfiACZOQEDQDKJK0463-57-05 03:21:00 Test Item Value Reference Range Interpretation Comments AST (test code = AST) 144 See_Comment [Auto mated message] The system which ge nerated this result transmit abdelrahman reference range : <=37. The reference range was not used to interpr et this result as gurpreet l/abnormal. [facility] HospitalKgjdjavMPUAHDBSCTMK5665-12-61 03:21:00 Test Item Value Reference Range Interpretation Comments Glucose Lvl (test code = Glucose Lvl) 75 70-99 [facility] HospitalEylqjcsCCOTQJUTBDAW6481-38-43 03:21:00 Test Item Value Reference Range Interpretation Comments BUN (test code = BUN) 11 7-[address] [facility] HospitalFnhjaqrDNULNCONMGFX9612-07-12 03:21:00 Test Item Value Reference Range Interpretation Comments Potassium Lvl (test code = Potassium 4.1 3.5-5.1 Lvl) [facility] HospitalVzvzmjuTEFQCRDDERBJ2718-81-91 03:21:00 Test Item Value Reference Range Interpretation Comments Creatinine Lvl (test code = Creatinine 1.00 0.50-1.40 Lvl) [facility] HospitalAgpindbQNNNOUIQRZBA9368-74-12 03:21:00 Test Item Value Reference Range Interpretation Comments Sodium Lvl (test code = Sodium Lvl) 140 135-145 [facility] HospitalVjoydgcIIOLGXRFODCG2841-80-93 03:21:00 Test Item Value Reference Range Interpretation Comments Chloride Lvl (test code = Chloride Lvl) 106 95-109 [facility] HospitalCkldwyxYQHJOKUKOOLX4393-11-57 03:21:00 Test Item Value Reference Range Interpretation Comments CO2 (test code = CO2) 24 24-32 [facility] HospitalUculslzUDVBQFJRMGBL2104-34-10 03:21:00 Test Item Value Reference Range Interpretation Comments Total Protein (test code = Total 7.4 6.4-8.4 Protein) [facility] HospitalEacqyosPCCVZMFVLRIA8064-46-99 03:21:00 Test Item Value Reference Range Interpretation Comments Calcium Lvl (test code = Calcium Lvl) 9.1 8.5-10.5 [facility] HospitalXlxxkmoXIVBYIECLRYZ2457-88-30 03:21:00 Test Item Value Reference Range Interpretation Comments ALT (test code = ALT) 52 See_Comment [Auto mated message] The system which ge nerated this result transmit abdelrahman reference range : <=65. The reference range was not used to interpr et this result as gurpreet l/abnormal. [facility] CenterIzddanlQHSVMQGPVM7531-37-85 03:21:00 Test Item Value Reference Range Interpretation Comments MCV (test code = MCV) 86.0 80.0-94.0 [facility] CenterBfqmsbcQFDOGXBBVX2942-11-36 03:21:00 Test Item Value Reference Range Interpretation Comments MCH (test code = MCH) 29.7 pg 27.0-31.0 [facility] CenterYgdhjezIESUQLPCNL7229-90-61 03:21:00 Test Item Value Reference Range Interpretation Comments Hct (test code = Hct) 41.0 42.0-54.0 [facility] CenterYvcmwthNYNWMCVOQE9568-16-75 03:21:00 Test Item Value Reference Range Interpretation Comments RBC (test code = RBC) 4.77 4.70-6.10 [facility] CenterIsxzagaSBZQZXVYSG2653-60-68 03:21:00 Test Item Value Reference Range Interpretation Comments WBC (test code = WBC) 8.8 3.7-10.4 [facility] CenterPsztunbGBXNYPQZPX9091-13-93 03:21:00 Test Item Value Reference Range Interpretation Comments Hgb (test code = Hgb) 14.2 14.0-18.0 [facility] CenterLazmosjCFMUJUOHMF7447-40-82 03:21:00 Test Item Value Reference Range Interpretation Comments Platelet (test code = Platelet) 141 133-450 [facility] CenterNzzyhcsCGYQHOVUBQ3909-43-82 03:21:00 Test Item Value Reference Range Interpretation Comments MCHC (test code = MCHC) 34.5 32.0-36.0 [facility] CenterKhhnbxdSGKAOWHGFM5745-43-09 03:21:00 Test Item Value Reference Range Interpretation Comments RDW (test code = RDW) 13.5 11.5-14.5 [facility] CenterIhglbtyFJQSGROBMO3529-00-56 03:21:00 Test Item Value Reference Range Interpretation Comments MPV (test code = MPV) 8.9 7.4-10.4 [facility] CenterLtlxxniSDFKXQSHSH2215-93-25 03:21:00 Test Item Value Reference Range Interpretation Comments Lymphocytes (test code = Lymphocytes) 21.1 20.0-40.0 [facility] CenterRdyjlddUZJSKUFVMP7579-02-53 03:21:00 Test Item Value Reference Range Interpretation Comments Monocytes (test code = Monocytes) 11.7 2.0-12.0 [facility] CenterTjijwjuCAKPVZHGGM1353-70-80 03:21:00 Test Item Value Reference Range Interpretation Comments Lymphocytes # (test code = Lymphocytes 1.8 1.0-5.5 #) [facility] CenterMvpooxeBHPDNIMVKN6496-42-89 03:21:00 Test Item Value Reference Range Interpretation Comments Segs-Bands # (test code = Segs-Bands #) 5.7 1.5-8.1 [facility] CenterOaubesnCLYAYQWARX7094-66-89 03:21:00 Test Item Value Reference Range Interpretation Comments Eosinophils (test code = 1.7 See_Comment [A utomated message] The Eosinophils) system which ge nerated this result tra nsmitted reference range : <=4.0. The reference r annemarie was not used to int erpret this result as normal/abnormal . [facility] CenterCagtuxxRKETVHIPKJ0353-22-92 03:21:00 Test Item Value Reference Range Interpretation Comments Basophils (test code = 0.8 See_Comment [Aut omated message] The Basophils) system which ge nerated this result tra nsmitted reference range : <=1.0. The reference r annemarie was not used to int erpret this result as normal/abnormal . [facility] CenterEcyvpdjKSDZPLVACR3277-63-58 03:21:00 Test Item Value Reference Range Interpretation Comments Basophils # (test code 0.1 See_Comment [Aut omated message] The = Basophils #) system which generated this result tra nsmitted reference range : <=0.2. The reference r annemarie was not used to int erpret this result as normal/abnormal . [facility] CenterOqlktfrPHFAODEWEC6221-27-73 03:21:00 Test Item Value Reference Range Interpretation Comments Monocytes # (test code 1.0 See_Comment [Aut omated message] The = Monocytes #) system which generated this result tra nsmitted reference range : <=0.8. The reference r annemarie was not used to int erpret this result as normal/abnormal . [facility] CenterFcisqmcGPVUDBBIMP4705-08-01 03:21:00 Test Item Value Reference Range Interpretation Comments Eosinophils # (test code 0.2 See_Comment [A utomated message] The = Eosinophils #) system whic h generated this result tra nsmitted reference range : <=0.5. The reference r annemarie was not used to int erpret this result as normal/abnormal . [facility] CenterKavhagfGFDUWXBNTF0157-87-58 03:21:00 Test Item Value Reference Range Interpretation Comments Segs (test code = Segs) 64.7 45.0-75.0 [facility]bergCreqhsdBYMZALBODT4253-46-19 04:48:00 Test Item Value Reference Range Interpretation Comments Etoh (%) (test code = Etoh (%)) [facility]DslrpkrSXFGJEJLEK3845-15-43 04:48:00 Test Item Value Reference Range Interpretation Comments Ethanol Lvl (test code = Ethanol Lvl) no [facility] HospitalNlwphevUCTIFTWWQU3095-71-17 04:48:00 Test Item Value Reference Range Interpretation Comments Etoh (%) (test code = Etoh (%)) no [facility] HospitalLayjgmgLQUWKVIKMT1247-46-77 04:48:00 Test Item Value Reference Range Interpretation Comments Ethanol Lvl (test code = Ethanol Lvl) no [facility] HospitalHtwvnqeBPIJCYSSJO2708-47-38 04:48:00 Test Item Value Reference Range Interpretation Comments Etoh (%) (test code = Etoh (%)) no [facility] HospitalOhguyqlHDEPCDIXJL8209-19-94 04:48:00 Test Item Value Reference Range Interpretation Comments Ethanol Lvl (test code = Ethanol Lvl) [facility] AfrguqpTVGFBUOPFI6828-49-03 04:48:00 Test Item Value Reference Range Interpretation Comments Etoh (%) (test code = Etoh (%)) no [facility] NmughpcQZQUWINAWF3931-86-35 04:48:00 Test Item Value Reference Range Interpretation Comments Ethanol Lvl (test code = Ethanol Lvl) no [facility] LqwgjphLXRJFEUNPD2481-51-50 04:48:00 Test Item Value Reference Range Interpretation Comments Etoh (%) (test code = Etoh (%)) no [facility] KabnvqwRVEILJWRJT9657-39-46 04:48:00 Test Item Value Reference Range Interpretation Comments Ethanol Lvl (test code = Ethanol Lvl) no [facility] IxjrnigMGLZWPRMSX8508-36-56 04:48:00 Test Item Value Reference Range Interpretation Comments Etoh (%) (test code = Etoh (%)) no [facility] McwvmsbWDZORCWOTQ8406-78-79 04:48:00 Test Item Value Reference Range Interpretation Comments Ethanol Lvl (test code = Ethanol Lvl) no [facility] KjkdbibQLWWXTVMLZ1826-15-96 04:48:00 Test Item Value Reference Range Interpretation Comments Etoh (%) (test code = Etoh (%)) no [facility] CbiorumBZDMEOXTMI6287-58-99 04:48:00 Test Item Value Reference Range Interpretation Comments Ethanol Lvl (test code = Ethanol Lvl) no [facility] CnerfdrIFQYMNAYTK8806-99-30 04:48:00 Test Item Value Reference Range Interpretation Comments Etoh (%) (test code = Etoh (%)) no [facility] KnsxefqMBWOTONILP8317-01-77 04:48:00 Test Item Value Reference Range Interpretation Comments Ethanol Lvl (test code = Ethanol Lvl) no [facility] NjgkajbTZJWRCSCPB2907-91-37 04:48:00 Test Item Value Reference Range Interpretation Comments Etoh (%) (test code = Etoh (%)) no [facility]t [facility] EjkoaiuPBRRHRHBEQ3553-07-07 04:48:00 Test Item Value Reference Range Interpretation Comments Ethanol Lvl (test code = Ethanol Lvl) [facility] DEJKCI2178-23-97 02:43:00 Test Item Value Reference Range Interpretation Comments UDS Note (test code = See Note *NA*(04/06/16 UDS Note) 8:43 PM) [facility] [id number] 02:43:00 Test Item Value Reference Range Interpretation Comments U Opiate Scr (test Negative *NA*(04/06/16 code = U Opiate Scr) 8:43 PM) [facility] ILYIQU8480-02-46 02:43:00 Test Item Value Reference Range Interpretation Comments U Benzodia Scr (test Negative *NA*(04/06/16 code = U Benzodia Scr) 8:43 PM) [facility] [id number] 02:43:00 Test Item Value Reference Range Interpretation Comments U Cocaine Scr (test Negative *NA*(04/06/16 code = U Cocaine Scr) 8:43 PM) [facility] QZVQZK5141-62-67 02:43:00 Test Item Value Reference Range Interpretation Comments U Phencyc Scr (test Negative *NA*(04/06/16 code = U Phencyc Scr) 8:43 PM) [facility] [id number] 02:43:00 Test Item Value Reference Range Interpretation Comments U Odalys Scr (test code Negative *NA*(04/06/16 = U Odalys Scr) 8:43 PM) [facility] [id number] 02:43:00 Test Item Value Reference Range Interpretation Comments U Cannab Scr (test Negative *NA*(04/06/16 code = U Cannab Scr) 8:43 PM) [facility] OYXIMJ3872-37-02 02:43:00 Test Item Value Reference Range Interpretation Comments U Amph Scr (test code Negative *NA*(04/06/16 = U Amph Scr) 8:43 PM) [facility] [id number] 02:43:00 Test Item Value Reference Range Interpretation Comments UA WBC (test code = UA WBC) 3-5 /HPF [facility] [id number] 02:43:00 Test Item Value Reference Range Interpretation Comments UA Sq Epi (test code = UA Sq Epi) Rare /LPF [facility] [id number] 02:43:00 Test Item Value Reference Range Interpretation Comments UA RBC (test code = 0-2 /HPF See_Comment [Automa abdelrahman message] The UA RBC) system which ge nerated this result tra nsmitted reference range : <=2. The reference range was not used to interpr et this result as gurpreet l/abnormal. [facility] AND [id number] 02:43:00 Test Item Value Reference Range Interpretation Comments UA Bacteria (test code = UA Occasional /HPF Bacteria) [facility] AND [id number] 02:43:00 Test Item Value Reference Range Interpretation Comments UA Mucus (test code = UA Mucus) Few /LPF [facility] AND [id number] 02:43:00 Test Item Value Reference Range Interpretation Comments UA Glucose (test code Negative (04/06/16 8:43 = UA Glucose) PM) [facility] AND [id number] 02:43:00 Test Item Value Reference Range Interpretation Comments UA Protein (test code Negative (04/06/16 8:43 = UA Protein) PM) [facility] AND [id number] 02:43:00 Test Item Value Reference Range Interpretation Comments UA pH (test code = UA pH) 5.5 1 5.0-8.0 [facility] AND [id number] 02:43:00 Test Item Value Reference Range Interpretation Comments UA Spec Grav (test code = UA Spec 1.025 1 Grav) [facility] AND [id number] 02:43:00 Test Item Value Reference Range Interpretation Comments UA Ketones (test code = UA >=80 mg/dL Ketones) [facility] AND [id number] 02:43:00 Test Item Value Reference Range Interpretation Comments UA Nitrite (test code Negative (04/06/16 8:43 = UA Nitrite) PM) [facility] AND [id number] 02:43:00 Test Item Value Reference Range Interpretation Comments UA Urobilinogen (test code = UA 0.2 0.1-1.0 Urobilinogen) [facility] AND [id number] 02:43:00 Test Item Value Reference Range Interpretation Comments UA Blood (test code = Negative (04/06/16 8:43 UA Blood) PM) [facility] [id number] 02:43:00 Test Item Value Reference Range Interpretation Comments UA Bili (test code = Small *ABN*(04/06/16 UA Bili) 8:43 PM) [facility] [id number] 02:43:00 Test Item Value Reference Range Interpretation Comments UA Leuk Est (test code Trace *ABN*(04/06/16 = UA Leuk Est) 8:43 PM) [facility] [id number] 02:43:00 Test Item Value Reference Range Interpretation Comments UA Turbidity (test code = Clear (04/06/16 8:43 UA Turbidity) PM) [facility] [id number] 02:43:00 Test Item Value Reference Range Interpretation Comments UA Color (test code = Yellow *NA*(04/06/16 UA Color) 8:43 PM) [facility] [id number] 02:43:00 Test Item Value Reference Range Interpretation Comments UDS Note (test code = See Note *NA*(04/06/16 UDS Note) 8:43 PM) [facility] [id number] 02:43:00 Test Item Value Reference Range Interpretation Comments U Opiate Scr (test Negative *NA*(04/06/16 code = U Opiate Scr) 8:43 PM) [facility] [id number] 02:43:00 Test Item Value Reference Range Interpretation Comments U Benzodia Scr (test Negative *NA*(04/06/16 code = U Benzodia Scr) 8:43 PM) [facility] [id number] 02:43:00 Test Item Value Reference Range Interpretation Comments U Cocaine Scr (test Negative *NA*(04/06/16 code = U Cocaine Scr) 8:43 PM) [facility] [id number] 02:43:00 Test Item Value Reference Range Interpretation Comments U Phencyc Scr (test Negative *NA*(04/06/16 code = U Phencyc Scr) 8:43 PM) [facility] [id number] 02:43:00 Test Item Value Reference Range Interpretation Comments U Odalys Scr (test code Negative *NA*(04/06/16 = U Odalys Scr) 8:43 PM) [facility] [id number] 02:43:00 Test Item Value Reference Range Interpretation Comments U Cannab Scr (test Negative *NA*(04/06/16 code = U Cannab Scr) 8:43 PM) [facility] [id number] 02:43:00 Test Item Value Reference Range Interpretation Comments U Amph Scr (test code Negative *NA*(04/06/16 = U Amph Scr) 8:43 PM) [facility] [id number] 02:43:00 Test Item Value Reference Range Interpretation Comments UA WBC (test code = UA WBC) 3-5 /HPF [facility] [id number] 02:43:00 Test Item Value Reference Range Interpretation Comments UA Sq Epi (test code = UA Sq Epi) Rare /LPF [facility] [id number] 02:43:00 Test Item Value Reference Range Interpretation Comments UA RBC (test code = 0-2 /HPF See_Comment [Automa abdelrahman message] The UA RBC) system which ge nerated this result tra nsmitted reference range : <=2. The reference range was not used to interpr et this result as gurpreet l/abnormal. [facility] [id number] 02:43:00 Test Item Value Reference Range Interpretation Comments UA Bacteria (test code = UA Occasional /HPF Bacteria) [facility] [id number] 02:43:00 Test Item Value Reference Range Interpretation Comments UA Mucus (test code = UA Mucus) Few /LPF [facility] [id number] 02:43:00 Test Item Value Reference Range Interpretation Comments UA Glucose (test code Negative (04/06/16 8:43 = UA Glucose) PM) [facility] [id number] 02:43:00 Test Item Value Reference Range Interpretation Comments UA Protein (test code Negative (04/06/16 8:43 = UA Protein) PM) [facility] [id number] 02:43:00 Test Item Value Reference Range Interpretation Comments UA pH (test code = UA pH) 5.5 1 5.0-8.0 [facility] [id number] 02:43:00 Test Item Value Reference Range Interpretation Comments UA Spec Grav (test code = UA Spec 1.025 1 Grav) [facility] [id number] 02:43:00 Test Item Value Reference Range Interpretation Comments UA Ketones (test code = UA >=80 mg/dL Ketones) [facility] [id number] 02:43:00 Test Item Value Reference Range Interpretation Comments UA Nitrite (test code Negative (04/06/16 8:43 = UA Nitrite) PM) [facility] [id number] 02:43:00 Test Item Value Reference Range Interpretation Comments UA Urobilinogen (test code = UA 0.2 0.1-1.0 Urobilinogen) [facility] [id number] 02:43:00 Test Item Value Reference Range Interpretation Comments UA Blood (test code = Negative (04/06/16 8:43 UA Blood) PM) [facility] [id number] 02:43:00 Test Item Value Reference Range Interpretation Comments UA Bili (test code = Small *ABN*(04/06/16 UA Bili) 8:43 PM) [facility] [id number] 02:43:00 Test Item Value Reference Range Interpretation Comments UA Leuk Est (test code Trace *ABN*(04/06/16 = UA Leuk Est) 8:43 PM) [facility] [id number] 02:43:00 Test Item Value Reference Range Interpretation Comments UA Turbidity (test code = Clear (04/06/16 8:43 UA Turbidity) PM) [facility] [id number] 02:43:00 Test Item Value Reference Range Interpretation Comments UA Color (test code = Yellow *NA*(04/06/16 UA Color) 8:43 PM) [facility] [id number] 02:43:00 Test Item Value Reference Range Interpretation Comments UDS Note (test code = See Note *NA*(04/06/16 UDS Note) 8:43 PM) [facility] [id number] 02:43:00 Test Item Value Reference Range Interpretation Comments U Opiate Scr (test Negative *NA*(04/06/16 code = U Opiate Scr) 8:43 PM) [facility] [id number] 02:43:00 Test Item Value Reference Range Interpretation Comments U Benzodia Scr (test Negative *NA*(04/06/16 code = U Benzodia Scr) 8:43 PM) [facility] [id number] 02:43:00 Test Item Value Reference Range Interpretation Comments U Cocaine Scr (test Negative *NA*(04/06/16 code = U Cocaine Scr) 8:43 PM) [facility] [id number] 02:43:00 Test Item Value Reference Range Interpretation Comments U Phencyc Scr (test Negative *NA*(04/06/16 code = U Phencyc Scr) 8:43 PM) [facility] [id number] 02:43:00 Test Item Value Reference Range Interpretation Comments U Odalys Scr (test code Negative *NA*(04/06/16 = U Odalys Scr) 8:43 PM) [facility] [id number] 02:43:00 Test Item Value Reference Range Interpretation Comments U Cannab Scr (test Negative *NA*(04/06/16 code = U Cannab Scr) 8:43 PM) [facility] [id number] 02:43:00 Test Item Value Reference Range Interpretation Comments U Amph Scr (test code Negative *NA*(04/06/16 = U Amph Scr) 8:43 PM) [facility] [id number] 02:43:00 Test Item Value Reference Range Interpretation Comments UA WBC (test code = UA WBC) 3-5 /HPF [facility] [id number] 02:43:00 Test Item Value Reference Range Interpretation Comments UA Sq Epi (test code = UA Sq Epi) Rare /LPF [facility] [id number] 02:43:00 Test Item Value Reference Range Interpretation Comments UA RBC (test code = 0-2 /HPF See_Comment [Automa abdelrahman message] The UA RBC) system which ge nerated this result tra nsmitted reference range : <=2. The reference range was not used to interpr et this result as gurpreet l/abnormal. [facility] [id number] 02:43:00 Test Item Value Reference Range Interpretation Comments UA Bacteria (test code = UA Occasional /HPF Bacteria) [facility] [id number] 02:43:00 Test Item Value Reference Range Interpretation Comments UA Mucus (test code = UA Mucus) Few /LPF [facility] AND [id number] 02:43:00 Test Item Value Reference Range Interpretation Comments UA Glucose (test code Negative (04/06/16 8:43 = UA Glucose) PM) [facility] AND [id number] 02:43:00 Test Item Value Reference Range Interpretation Comments UA Protein (test code Negative (04/06/16 8:43 = UA Protein) PM) [facility] AND [id number] 02:43:00 Test Item Value Reference Range Interpretation Comments UA pH (test code = UA pH) 5.5 1 5.0-8.0 [facility] AND [id number] 02:43:00 Test Item Value Reference Range Interpretation Comments UA Spec Grav (test code = UA Spec 1.025 1 Grav) [facility] AND [id number] 02:43:00 Test Item Value Reference Range Interpretation Comments UA Ketones (test code = UA >=80 mg/dL Ketones) [facility] AND [id number] 02:43:00 Test Item Value Reference Range Interpretation Comments UA Nitrite (test code Negative (04/06/16 8:43 = UA Nitrite) PM) [facility] AND [id number] 02:43:00 Test Item Value Reference Range Interpretation Comments UA Urobilinogen (test code = UA 0.2 0.1-1.0 Urobilinogen) [facility] AND [id number] 02:43:00 Test Item Value Reference Range Interpretation Comments UA Blood (test code = Negative (04/06/16 8:43 UA Blood) PM) [facility] AND [id number] 02:43:00 Test Item Value Reference Range Interpretation Comments UA Bili (test code = Small *ABN*(04/06/16 UA Bili) 8:43 PM) [facility] AND [id number] 02:43:00 Test Item Value Reference Range Interpretation Comments UA Leuk Est (test code Trace *ABN*(04/06/16 = UA Leuk Est) 8:43 PM) [facility] AND [id number] 02:43:00 Test Item Value Reference Range Interpretation Comments UA Turbidity (test code = Clear (04/06/16 8:43 UA Turbidity) PM) [facility] [id number] 02:43:00 Test Item Value Reference Range Interpretation Comments UA Color (test code = Yellow *NA*(04/06/16 UA Color) 8:43 PM) [facility] [id number] 02:43:00 Test Item Value Reference Range Interpretation Comments UDS Note (test code = See Note *NA*(04/06/16 UDS Note) 8:43 PM) [facility] [id number] 02:43:00 Test Item Value Reference Range Interpretation Comments U Opiate Scr (test Negative *NA*(04/06/16 code = U Opiate Scr) 8:43 PM) [facility] [id number] 02:43:00 Test Item Value Reference Range Interpretation Comments U Benzodia Scr (test Negative *NA*(04/06/16 code = U Benzodia Scr) 8:43 PM) [facility] [id number] 02:43:00 Test Item Value Reference Range Interpretation Comments U Cocaine Scr (test Negative *NA*(04/06/16 code = U Cocaine Scr) 8:43 PM) [facility] [id number] 02:43:00 Test Item Value Reference Range Interpretation Comments U Phencyc Scr (test Negative *NA*(04/06/16 code = U Phencyc Scr) 8:43 PM) [facility] [id number] 02:43:00 Test Item Value Reference Range Interpretation Comments U Odalys Scr (test code Negative *NA*(04/06/16 = U Odalys Scr) 8:43 PM) [facility] [id number] 02:43:00 Test Item Value Reference Range Interpretation Comments U Cannab Scr (test Negative *NA*(04/06/16 code = U Cannab Scr) 8:43 PM) [facility] [id number] 02:43:00 Test Item Value Reference Range Interpretation Comments U Amph Scr (test code Negative *NA*(04/06/16 = U Amph Scr) 8:43 PM) [facility] [id number] 02:43:00 Test Item Value Reference Range Interpretation Comments UA WBC (test code = UA WBC) 3-5 /HPF [facility] [id number] 02:43:00 Test Item Value Reference Range Interpretation Comments UA Sq Epi (test code = UA Sq Epi) Rare /LPF [facility] AND [id number] 02:43:00 Test Item Value Reference Range Interpretation Comments UA RBC (test code = 0-2 /HPF See_Comment [Automa abdelrahman message] The UA RBC) system which ge nerated this result tra nsmitted reference range : <=2. The reference range was not used to interpr et this result as gurpreet l/abnormal. [facility] AND [id number] 02:43:00 Test Item Value Reference Range Interpretation Comments UA Bacteria (test code = UA Occasional /HPF Bacteria) [facility] AND [id number] 02:43:00 Test Item Value Reference Range Interpretation Comments UA Mucus (test code = UA Mucus) Few /LPF [facility] AND [id number] 02:43:00 Test Item Value Reference Range Interpretation Comments UA Glucose (test code Negative (04/06/16 8:43 = UA Glucose) PM) [facility] AND [id number] 02:43:00 Test Item Value Reference Range Interpretation Comments UA Protein (test code Negative (04/06/16 8:43 = UA Protein) PM) [facility] AND [id number] 02:43:00 Test Item Value Reference Range Interpretation Comments UA pH (test code = UA pH) 5.5 1 5.0-8.0 [facility] AND [id number] 02:43:00 Test Item Value Reference Range Interpretation Comments UA Spec Grav (test code = UA Spec 1.025 1 Grav) [facility] AND [id number] 02:43:00 Test Item Value Reference Range Interpretation Comments UA Ketones (test code = UA >=80 mg/dL Ketones) [facility] AND [id number] 02:43:00 Test Item Value Reference Range Interpretation Comments UA Nitrite (test code Negative (04/06/16 8:43 = UA Nitrite) PM) [facility] AND [id number] 02:43:00 Test Item Value Reference Range Interpretation Comments UA Urobilinogen (test code = UA 0.2 0.1-1.0 Urobilinogen) [facility] [id number] 02:43:00 Test Item Value Reference Range Interpretation Comments UA Blood (test code = Negative (04/06/16 8:43 UA Blood) PM) [facility] [id number] 02:43:00 Test Item Value Reference Range Interpretation Comments UA Bili (test code = Small *ABN*(04/06/16 UA Bili) 8:43 PM) [facility] [id number] 02:43:00 Test Item Value Reference Range Interpretation Comments UA Leuk Est (test code Trace *ABN*(04/06/16 = UA Leuk Est) 8:43 PM) [facility] [id number] 02:43:00 Test Item Value Reference Range Interpretation Comments UA Turbidity (test code = Clear (04/06/16 8:43 UA Turbidity) PM) [facility] [id number] 02:43:00 Test Item Value Reference Range Interpretation Comments UA Color (test code = Yellow *NA*(04/06/16 UA Color) 8:43 PM) [facility] [id number] 02:43:00 Test Item Value Reference Range Interpretation Comments UDS Note (test code = See Note *NA*(04/06/16 UDS Note) 8:43 PM) [facility] [id number] 02:43:00 Test Item Value Reference Range Interpretation Comments U Opiate Scr (test Negative *NA*(04/06/16 code = U Opiate Scr) 8:43 PM) [facility] [id number] 02:43:00 Test Item Value Reference Range Interpretation Comments U Benzodia Scr (test Negative *NA*(04/06/16 code = U Benzodia Scr) 8:43 PM) [facility] [id number] 02:43:00 Test Item Value Reference Range Interpretation Comments U Cocaine Scr (test Negative *NA*(04/06/16 code = U Cocaine Scr) 8:43 PM) [facility] [id number] 02:43:00 Test Item Value Reference Range Interpretation Comments U Phencyc Scr (test Negative *NA*(04/06/16 code = U Phencyc Scr) 8:43 PM) [facility] [id number] 02:43:00 Test Item Value Reference Range Interpretation Comments U Odalys Scr (test code Negative *NA*(04/06/16 = U Odalys Scr) 8:43 PM) [facility] [id number] 02:43:00 Test Item Value Reference Range Interpretation Comments U Cannab Scr (test Negative *NA*(04/06/16 code = U Cannab Scr) 8:43 PM) [facility] [id number] 02:43:00 Test Item Value Reference Range Interpretation Comments U Amph Scr (test code Negative *NA*(04/06/16 = U Amph Scr) 8:43 PM) [facility] [id number] 02:43:00 Test Item Value Reference Range Interpretation Comments UA WBC (test code = UA WBC) 3-5 /HPF [facility] [id number] 02:43:00 Test Item Value Reference Range Interpretation Comments UA Sq Epi (test code = UA Sq Epi) Rare /LPF [facility] [id number] 02:43:00 Test Item Value Reference Range Interpretation Comments UA RBC (test code = 0-2 /HPF See_Comment [Automa abdelrahman message] The UA RBC) system which ge nerated this result tra nsmitted reference range : <=2. The reference range was not used to interpr et this result as gurpreet l/abnormal. [facility] [id number] 02:43:00 Test Item Value Reference Range Interpretation Comments UA Bacteria (test code = UA Occasional /HPF Bacteria) [facility] [id number] 02:43:00 Test Item Value Reference Range Interpretation Comments UA Mucus (test code = UA Mucus) Few /LPF [facility] [id number] 02:43:00 Test Item Value Reference Range Interpretation Comments UA Glucose (test code Negative (04/06/16 8:43 = UA Glucose) PM) [facility] [id number] 02:43:00 Test Item Value Reference Range Interpretation Comments UA Protein (test code Negative (04/06/16 8:43 = UA Protein) PM) [facility] [id number] 02:43:00 Test Item Value Reference Range Interpretation Comments UA pH (test code = UA pH) 5.5 1 5.0-8.0 [facility] [id number] 02:43:00 Test Item Value Reference Range Interpretation Comments UA Spec Grav (test code = UA Spec 1.025 1 Grav) [facility] [id number] 02:43:00 Test Item Value Reference Range Interpretation Comments UA Ketones (test code = UA >=80 mg/dL Ketones) [facility] [id number] 02:43:00 Test Item Value Reference Range Interpretation Comments UA Nitrite (test code Negative (04/06/16 8:43 = UA Nitrite) PM) [facility] [id number] 02:43:00 Test Item Value Reference Range Interpretation Comments UA Urobilinogen (test code = UA 0.2 0.1-1.0 Urobilinogen) [facility] [id number] 02:43:00 Test Item Value Reference Range Interpretation Comments UA Blood (test code = Negative (04/06/16 8:43 UA Blood) PM) [facility] [id number] 02:43:00 Test Item Value Reference Range Interpretation Comments UA Bili (test code = Small *ABN*(04/06/16 UA Bili) 8:43 PM) [facility] [id number] 02:43:00 Test Item Value Reference Range Interpretation Comments UA Leuk Est (test code Trace *ABN*(04/06/16 = UA Leuk Est) 8:43 PM) [facility] [id number] 02:43:00 Test Item Value Reference Range Interpretation Comments UA Turbidity (test code = Clear (04/06/16 8:43 UA Turbidity) PM) [facility] [id number] 02:43:00 Test Item Value Reference Range Interpretation Comments UA Color (test code = Yellow *NA*(04/06/16 UA Color) 8:43 PM) [facility] [id number] 02:43:00 Test Item Value Reference Range Interpretation Comments UDS Note (test code = See Note *NA*(04/06/16 UDS Note) 8:43 PM) [facility] [id number] 02:43:00 Test Item Value Reference Range Interpretation Comments U Opiate Scr (test Negative *NA*(04/06/16 code = U Opiate Scr) 8:43 PM) [facility] [id number] 02:43:00 Test Item Value Reference Range Interpretation Comments U Benzodia Scr (test Negative *NA*(04/06/16 code = U Benzodia Scr) 8:43 PM) [facility] [id number] 02:43:00 Test Item Value Reference Range Interpretation Comments U Cocaine Scr (test Negative *NA*(04/06/16 code = U Cocaine Scr) 8:43 PM) [facility] [id number] 02:43:00 Test Item Value Reference Range Interpretation Comments U Phencyc Scr (test Negative *NA*(04/06/16 code = U Phencyc Scr) 8:43 PM) [facility] [id number] 02:43:00 Test Item Value Reference Range Interpretation Comments U Odalys Scr (test code Negative *NA*(04/06/16 = U Odalys Scr) 8:43 PM) [facility] [id number] 02:43:00 Test Item Value Reference Range Interpretation Comments U Cannab Scr (test Negative *NA*(04/06/16 code = U Cannab Scr) 8:43 PM) [facility] [id number] 02:43:00 Test Item Value Reference Range Interpretation Comments U Amph Scr (test code Negative *NA*(04/06/16 = U Amph Scr) 8:43 PM) [facility] [id number] 02:43:00 Test Item Value Reference Range Interpretation Comments UA WBC (test code = UA WBC) 3-5 /HPF [facility] [id number] 02:43:00 Test Item Value Reference Range Interpretation Comments UA Sq Epi (test code = UA Sq Epi) Rare /LPF [facility] [id number] 02:43:00 Test Item Value Reference Range Interpretation Comments UA RBC (test code = 0-2 /HPF See_Comment [Automa abdelrahman message] The UA RBC) system which ge nerated this result tra nsmitted reference range : <=2. The reference range was not used to interpr et this result as gurpreet l/abnormal. [facility] [id number] 02:43:00 Test Item Value Reference Range Interpretation Comments UA Bacteria (test code = UA Occasional /HPF Bacteria) [facility] AND [id number] 02:43:00 Test Item Value Reference Range Interpretation Comments UA Mucus (test code = UA Mucus) Few /LPF [facility] AND [id number] 02:43:00 Test Item Value Reference Range Interpretation Comments UA Glucose (test code Negative (04/06/16 8:43 = UA Glucose) PM) [facility] AND [id number] 02:43:00 Test Item Value Reference Range Interpretation Comments UA Protein (test code Negative (04/06/16 8:43 = UA Protein) PM) [facility] AND [id number] 02:43:00 Test Item Value Reference Range Interpretation Comments UA pH (test code = UA pH) 5.5 1 5.0-8.0 [facility] AND [id number] 02:43:00 Test Item Value Reference Range Interpretation Comments UA Spec Grav (test code = UA Spec 1.025 1 Grav) [facility] AND [id number] 02:43:00 Test Item Value Reference Range Interpretation Comments UA Ketones (test code = UA >=80 mg/dL Ketones) [facility] AND [id number] 02:43:00 Test Item Value Reference Range Interpretation Comments UA Nitrite (test code Negative (04/06/16 8:43 = UA Nitrite) PM) [facility] AND [id number] 02:43:00 Test Item Value Reference Range Interpretation Comments UA Urobilinogen (test code = UA 0.2 0.1-1.0 Urobilinogen) [facility] AND [id number] 02:43:00 Test Item Value Reference Range Interpretation Comments UA Blood (test code = Negative (04/06/16 8:43 UA Blood) PM) [facility] AND [id number] 02:43:00 Test Item Value Reference Range Interpretation Comments UA Bili (test code = Small *ABN*(04/06/16 UA Bili) 8:43 PM) [facility] AND [id number] 02:43:00 Test Item Value Reference Range Interpretation Comments UA Leuk Est (test code Trace *ABN*(04/06/16 = UA Leuk Est) 8:43 PM) [facility] [id number] 02:43:00 Test Item Value Reference Range Interpretation Comments UA Turbidity (test code = Clear (04/06/16 8:43 UA Turbidity) PM) [facility] [id number] 02:43:00 Test Item Value Reference Range Interpretation Comments UA Color (test code = Yellow *NA*(04/06/16 UA Color) 8:43 PM) [facility] [id number] 02:43:00 Test Item Value Reference Range Interpretation Comments UDS Note (test code = See Note *NA*(04/06/16 UDS Note) 8:43 PM) [facility] [id number] 02:43:00 Test Item Value Reference Range Interpretation Comments U Opiate Scr (test Negative *NA*(04/06/16 code = U Opiate Scr) 8:43 PM) [facility] [id number] 02:43:00 Test Item Value Reference Range Interpretation Comments U Benzodia Scr (test Negative *NA*(04/06/16 code = U Benzodia Scr) 8:43 PM) [facility] [id number] 02:43:00 Test Item Value Reference Range Interpretation Comments U Cocaine Scr (test Negative *NA*(04/06/16 code = U Cocaine Scr) 8:43 PM) [facility] [id number] 02:43:00 Test Item Value Reference Range Interpretation Comments U Phencyc Scr (test Negative *NA*(04/06/16 code = U Phencyc Scr) 8:43 PM) [facility] [id number] 02:43:00 Test Item Value Reference Range Interpretation Comments U Odalys Scr (test code Negative *NA*(04/06/16 = U Odalys Scr) 8:43 PM) [facility] [id number] 02:43:00 Test Item Value Reference Range Interpretation Comments U Cannab Scr (test Negative *NA*(04/06/16 code = U Cannab Scr) 8:43 PM) [facility] [id number] 02:43:00 Test Item Value Reference Range Interpretation Comments U Amph Scr (test code Negative *NA*(04/06/16 = U Amph Scr) 8:43 PM) [facility] [id number] 02:43:00 Test Item Value Reference Range Interpretation Comments UA WBC (test code = UA WBC) 3-5 /HPF [facility] AND [id number] 02:43:00 Test Item Value Reference Range Interpretation Comments UA Sq Epi (test code = UA Sq Epi) Rare /LPF [facility] AND [id number] 02:43:00 Test Item Value Reference Range Interpretation Comments UA RBC (test code = 0-2 /HPF See_Comment [Automa abdelrahman message] The UA RBC) system which ge nerated this result tra nsmitted reference range : <=2. The reference range was not used to interpr et this result as gurpreet l/abnormal. [facility] AND [id number] 02:43:00 Test Item Value Reference Range Interpretation Comments UA Bacteria (test code = UA Occasional /HPF Bacteria) [facility] AND [id number] 02:43:00 Test Item Value Reference Range Interpretation Comments UA Mucus (test code = UA Mucus) Few /LPF [facility] AND [id number] 02:43:00 Test Item Value Reference Range Interpretation Comments UA Glucose (test code Negative (04/06/16 8:43 = UA Glucose) PM) [facility] AND [id number] 02:43:00 Test Item Value Reference Range Interpretation Comments UA Protein (test code Negative (04/06/16 8:43 = UA Protein) PM) [facility] AND [id number] 02:43:00 Test Item Value Reference Range Interpretation Comments UA pH (test code = UA pH) 5.5 1 5.0-8.0 [facility] AND [id number] 02:43:00 Test Item Value Reference Range Interpretation Comments UA Spec Grav (test code = UA Spec 1.025 1 Grav) [facility] AND [id number] 02:43:00 Test Item Value Reference Range Interpretation Comments UA Ketones (test code = UA >=80 mg/dL Ketones) [facility] AND [id number] 02:43:00 Test Item Value Reference Range Interpretation Comments UA Nitrite (test code Negative (04/06/16 8:43 = UA Nitrite) PM) [facility] AND [id number] 02:43:00 Test Item Value Reference Range Interpretation Comments UA Urobilinogen (test code = UA 0.2 0.1-1.0 Urobilinogen) [facility] [id number] 02:43:00 Test Item Value Reference Range Interpretation Comments UA Blood (test code = Negative (04/06/16 8:43 UA Blood) PM) [facility] [id number] 02:43:00 Test Item Value Reference Range Interpretation Comments UA Bili (test code = Small *ABN*(04/06/16 UA Bili) 8:43 PM) [facility] [id number] 02:43:00 Test Item Value Reference Range Interpretation Comments UA Leuk Est (test code Trace *ABN*(04/06/16 = UA Leuk Est) 8:43 PM) [facility] [id number] 02:43:00 Test Item Value Reference Range Interpretation Comments UA Turbidity (test code = Clear (04/06/16 8:43 UA Turbidity) PM) [facility] [id number] 02:43:00 Test Item Value Reference Range Interpretation Comments UA Color (test code = Yellow *NA*(04/06/16 UA Color) 8:43 PM) [facility] [id number] 02:43:00 Test Item Value Reference Range Interpretation Comments UDS Note (test code = See Note *NA*(04/06/16 UDS Note) 8:43 PM) [facility] [id number] 02:43:00 Test Item Value Reference Range Interpretation Comments U Opiate Scr (test Negative *NA*(04/06/16 code = U Opiate Scr) 8:43 PM) [facility] [id number] 02:43:00 Test Item Value Reference Range Interpretation Comments U Benzodia Scr (test Negative *NA*(04/06/16 code = U Benzodia Scr) 8:43 PM) [facility] [id number] 02:43:00 Test Item Value Reference Range Interpretation Comments U Cocaine Scr (test Negative *NA*(04/06/16 code = U Cocaine Scr) 8:43 PM) [facility] [id number] 02:43:00 Test Item Value Reference Range Interpretation Comments U Phencyc Scr (test Negative *NA*(04/06/16 code = U Phencyc Scr) 8:43 PM) [facility] [id number] 02:43:00 Test Item Value Reference Range Interpretation Comments U Odalys Scr (test code Negative *NA*(04/06/16 = U Odalys Scr) 8:43 PM) [facility] [id number] 02:43:00 Test Item Value Reference Range Interpretation Comments U Cannab Scr (test Negative *NA*(04/06/16 code = U Cannab Scr) 8:43 PM) [facility] [id number] 02:43:00 Test Item Value Reference Range Interpretation Comments U Amph Scr (test code Negative *NA*(04/06/16 = U Amph Scr) 8:43 PM) [facility] [id number] 02:43:00 Test Item Value Reference Range Interpretation Comments UA WBC (test code = UA WBC) 3-5 /HPF [facility] [id number] 02:43:00 Test Item Value Reference Range Interpretation Comments UA Sq Epi (test code = UA Sq Epi) Rare /LPF [facility] [id number] 02:43:00 Test Item Value Reference Range Interpretation Comments UA RBC (test code = 0-2 /HPF See_Comment [Automa abdelrahman message] The UA RBC) system which ge nerated this result tra nsmitted reference range : <=2. The reference range was not used to interpr et this result as gurpreet l/abnormal. [facility] [id number] 02:43:00 Test Item Value Reference Range Interpretation Comments UA Bacteria (test code = UA Occasional /HPF Bacteria) [facility] [id number] 02:43:00 Test Item Value Reference Range Interpretation Comments UA Mucus (test code = UA Mucus) Few /LPF [facility] [id number] 02:43:00 Test Item Value Reference Range Interpretation Comments UA Glucose (test code Negative (04/06/16 8:43 = UA Glucose) PM) [facility] [id number] 02:43:00 Test Item Value Reference Range Interpretation Comments UA Protein (test code Negative (04/06/16 8:43 = UA Protein) PM) [facility] [id number] 02:43:00 Test Item Value Reference Range Interpretation Comments UA pH (test code = UA pH) 5.5 1 5.0-8.0 [facility] [id number] 02:43:00 Test Item Value Reference Range Interpretation Comments UA Spec Grav (test code = UA Spec 1.025 1 Grav) [facility] [id number] 02:43:00 Test Item Value Reference Range Interpretation Comments UA Ketones (test code = UA >=80 mg/dL Ketones) [facility] [id number] 02:43:00 Test Item Value Reference Range Interpretation Comments UA Nitrite (test code Negative (04/06/16 8:43 = UA Nitrite) PM) [facility] [id number] 02:43:00 Test Item Value Reference Range Interpretation Comments UA Urobilinogen (test code = UA 0.2 0.1-1.0 Urobilinogen) [facility] [id number] 02:43:00 Test Item Value Reference Range Interpretation Comments UA Blood (test code = Negative (04/06/16 8:43 UA Blood) PM) [facility] [id number] 02:43:00 Test Item Value Reference Range Interpretation Comments UA Bili (test code = Small *ABN*(04/06/16 UA Bili) 8:43 PM) [facility] [id number] 02:43:00 Test Item Value Reference Range Interpretation Comments UA Leuk Est (test code Trace *ABN*(04/06/16 = UA Leuk Est) 8:43 PM) [facility] [id number] 02:43:00 Test Item Value Reference Range Interpretation Comments UA Turbidity (test code = Clear (04/06/16 8:43 UA Turbidity) PM) [facility] [id number] 02:43:00 Test Item Value Reference Range Interpretation Comments UA Color (test code = Yellow *NA*(04/06/16 UA Color) 8:43 PM) [facility] [id number] 02:43:00 Test Item Value Reference Range Interpretation Comments UDS Note (test code = See Note *NA*(04/06/16 UDS Note) 8:43 PM) [facility] [id number] 02:43:00 Test Item Value Reference Range Interpretation Comments U Opiate Scr (test Negative *NA*(04/06/16 code = U Opiate Scr) 8:43 PM) [facility] [id number] 02:43:00 Test Item Value Reference Range Interpretation Comments U Benzodia Scr (test Negative *NA*(04/06/16 code = U Benzodia Scr) 8:43 PM) [facility] [id number] 02:43:00 Test Item Value Reference Range Interpretation Comments U Cocaine Scr (test Negative *NA*(04/06/16 code = U Cocaine Scr) 8:43 PM) [facility] [id number] 02:43:00 Test Item Value Reference Range Interpretation Comments U Phencyc Scr (test Negative *NA*(04/06/16 code = U Phencyc Scr) 8:43 PM) [facility] [id number] 02:43:00 Test Item Value Reference Range Interpretation Comments U Odalys Scr (test code Negative *NA*(04/06/16 = U Odalys Scr) 8:43 PM) [facility] [id number] 02:43:00 Test Item Value Reference Range Interpretation Comments U Cannab Scr (test Negative *NA*(04/06/16 code = U Cannab Scr) 8:43 PM) [facility] [id number] 02:43:00 Test Item Value Reference Range Interpretation Comments U Amph Scr (test code Negative *NA*(04/06/16 = U Amph Scr) 8:43 PM) [facility] [id number] 02:43:00 Test Item Value Reference Range Interpretation Comments UA WBC (test code = UA WBC) 3-5 /HPF [facility] [id number] 02:43:00 Test Item Value Reference Range Interpretation Comments UA Sq Epi (test code = UA Sq Epi) Rare /LPF [facility] [id number] 02:43:00 Test Item Value Reference Range Interpretation Comments UA RBC (test code = 0-2 /HPF See_Comment [Automa abdelrahman message] The UA RBC) system which ge nerated this result tra nsmitted reference range : <=2. The reference range was not used to interpr et this result as gurpreet l/abnormal. [facility] AND [id number] 02:43:00 Test Item Value Reference Range Interpretation Comments UA Bacteria (test code = UA Occasional /HPF Bacteria) [facility] AND [id number] 02:43:00 Test Item Value Reference Range Interpretation Comments UA Mucus (test code = UA Mucus) Few /LPF [facility] AND [id number] 02:43:00 Test Item Value Reference Range Interpretation Comments UA Glucose (test code Negative (04/06/16 8:43 = UA Glucose) PM) [facility] AND [id number] 02:43:00 Test Item Value Reference Range Interpretation Comments UA Protein (test code Negative (04/06/16 8:43 = UA Protein) PM) [facility] AND [id number] 02:43:00 Test Item Value Reference Range Interpretation Comments UA pH (test code = UA pH) 5.5 1 5.0-8.0 [facility] AND [id number] 02:43:00 Test Item Value Reference Range Interpretation Comments UA Spec Grav (test code = UA Spec 1.025 1 Grav) [facility] AND [id number] 02:43:00 Test Item Value Reference Range Interpretation Comments UA Ketones (test code = UA >=80 mg/dL Ketones) [facility] AND [id number] 02:43:00 Test Item Value Reference Range Interpretation Comments UA Nitrite (test code Negative (04/06/16 8:43 = UA Nitrite) PM) [facility] AND [id number] 02:43:00 Test Item Value Reference Range Interpretation Comments UA Urobilinogen (test code = UA 0.2 0.1-1.0 Urobilinogen) [facility] AND [id number] 02:43:00 Test Item Value Reference Range Interpretation Comments UA Blood (test code = Negative (04/06/16 8:43 UA Blood) PM) [facility] AND [id number] 02:43:00 Test Item Value Reference Range Interpretation Comments UA Bili (test code = Small *ABN*(04/06/16 UA Bili) 8:43 PM) [facility] [id number] 02:43:00 Test Item Value Reference Range Interpretation Comments UA Leuk Est (test code Trace *ABN*(04/06/16 = UA Leuk Est) 8:43 PM) [facility] [id number] 02:43:00 Test Item Value Reference Range Interpretation Comments UA Turbidity (test code = Clear (04/06/16 8:43 UA Turbidity) PM) [facility] [id number] 02:43:00 Test Item Value Reference Range Interpretation Comments UA Color (test code = Yellow *NA*(04/06/16 UA Color) 8:43 PM) [facility]annCARDIAC [id number] 02:38:00 Test Item Value Reference Range Interpretation Comments Total CK (test code = Total CK) 598 12-191 [facility] [id number] 02:38:00 Test Item Value Reference Range Interpretation Comments eGFR (test code = eGFR) 121 [facility] [id number] 02:38:00 Test Item Value Reference Range Interpretation Comments Calcium Lvl (test code = Calcium Lvl) 9.2 8.5-10.5 [facility]ann[facility] [id number] 02:38:00 Test Item Value Reference Range Interpretation Comments Total Protein (test code = Total 7.6 6.4-8.4 Protein) [facility] [id number] 02:38:00 Test Item Value Reference Range Interpretation Comments CO2 (test code = CO2) 22 24-32 [facility] [id number] 02:38:00 Test Item Value Reference Range Interpretation Comments AST (test code = AST) 43 See_Comment [Auto mated message] The system which ge nerated this result transmit abdelrahman reference range : <=37. The reference range was not used to interpr et this result as gurpreet l/abnormal. [facility] HospitalannVal[facility] [id number] 02:38:00 Test Item Value Reference Range Interpretation Comments Albumin Lvl (test code = Albumin Lvl) 4.4 3.5-5.0 [facility] [id number] 02:38:00 Test Item Value Reference Range Interpretation Comments ALT (test code = ALT) 22 See_Comment [Auto mated message] The system which ge nerated this result transmit abdelrahman reference range : <=65. The reference range was not used to interpr et this result as gurpreet l/abnormal. [facility]2016-12-08 02:38:00 Test Item Value Reference Range Interpretation Comments Chloride Lvl (test code = Chloride Lvl) 101 95-109 [facility]2016-12-08 02:38:00 Test Item Value Reference Range Interpretation Comments Creatinine Lvl (test code = Creatinine 0.81 0.50-1.40 Lvl) [facility]2016-12-08 02:38:00 Test Item Value Reference Range Interpretation Comments Sodium Lvl (test code = Sodium Lvl) 136 135-145 [facility]2016-12-08 02:38:00 Test Item Value Reference Range Interpretation Comments Potassium Lvl (test code = Potassium 4.4 3.5-5.1 Lvl) [facility]2016-12-08 02:38:00 Test Item Value Reference Range Interpretation Comments Bili Total (test code = Bili Total) 0.9 0.2-1.3 [facility]2016-12-08 02:38:00 Test Item Value Reference Range Interpretation Comments Alk Phos (test code = Alk Phos) 34 39-136 [facility]2016-12-08 02:38:00 Test Item Value Reference Range Interpretation Comments Glucose Lvl (test code = Glucose Lvl) 63 70-99 [facility]2016-12-08 02:38:00 Test Item Value Reference Range Interpretation Comments BUN (test code = BUN) 14 7-22 [facility]2016-12-08 02:38:00 Test Item Value Reference Range Interpretation Comments AGAP (test code = AGAP) 17.4 10.0-20.0 [facility]2016-12-08 02:38:00 Test Item Value Reference Range Interpretation Comments B/C Ratio (test code = B/C Ratio) 17 6-25 [facility]2016-12-08 02:38:00 Test Item Value Reference Range Interpretation Comments Globulin (test code = Globulin) 3.2 2.7-4.2 [facility]2016-12-08 02:38:00 Test Item Value Reference Range Interpretation Comments A/G Ratio (test code = A/G Ratio) 1.4 0.7-1.6 [id number] 02:38:00 Test Item Value Reference Range Interpretation Comments Lymphocytes # (test code = Lymphocytes 1.7 1.0-5.5 #) [facility] CenterTtowpwjJVJMVCLHHS6983-28-31 02:38:00 Test Item Value Reference Range Interpretation Comments Eosinophils (test code = 1.0 See_Comment [A utomated message] The Eosinophils) system which ge nerated this result tra nsmitted reference range : <=4.0. The reference r annemarie was not used to int erpret this result as normal/abnormal . [facility] CenterZpfbtogSCNCEBQHEM4899-19-30 02:38:00 Test Item Value Reference Range Interpretation Comments Basophils (test code = 0.4 See_Comment [Aut omated message] The Basophils) system which ge nerated this result tra nsmitted reference range : <=1.0. The reference r annemarie was not used to int erpret this result as normal/abnormal . [facility] Cent[id number] 02:38:00 Test Item Value Reference Range Interpretation Comments Segs-Bands # (test code = Segs-Bands #) 4.2 1.5-8.1 [facility] Cent[id number] 02:38:00 Test Item Value Reference Range Interpretation Comments Monocytes (test code = Monocytes) 9.2 2.0-12.0 [facility] CenterHmvyncwSTEACNLLJO1520-08-37 02:38:00 Test Item Value Reference Range Interpretation Comments Monocytes # (test code 0.6 See_Comment [Aut omated message] The = Monocytes #) system which generated this result tra nsmitted reference range : <=0.8. The reference r annemarie was not used to int erpret this result as normal/abnormal . [facility] [id number] 02:38:00 Test Item Value Reference Range Interpretation Comments Eosinophils # (test code 0.1 See_Comment [A utomated message] The = Eosinophils #) system whic h generated this result tra nsmitted reference range : <=0.5. The reference r annemarie was not used to int erpret this result as normal/abnormal . [facility] CenterJchbdkuTCTHDYZIRS7529-65-47 02:38:00 Test Item Value Reference Range Interpretation Comments Lymphocytes (test code = Lymphocytes) 26.3 20.0-40.0 [facility] CenterOqbyjgpDWFRHARDWG1796-36-13 02:38:00 Test Item Value Reference Range Interpretation Comments Segs (test code = Segs) 63.1 45.0-75.0 [facility] CenterBvarpysHCYVDDYSZI3756-61-64 02:38:00 Test Item Value Reference Range Interpretation Comments WBC (test code = WBC) 6.6 3.7-10.4 [facility] CenterQadrtnxIIWMWWSTGD4720-11-49 02:38:00 Test Item Value Reference Range Interpretation Comments Hct (test code = Hct) 42.9 42.0-54.0 [facility] CenterIsaiabzEPXWGBJBFY2076-96-13 02:38:00 Test Item Value Reference Range Interpretation Comments RBC (test code = RBC) 4.86 4.70-6.10 [facility] CenterRjgqorcFGSYWHXJTI4664-83-71 02:38:00 Test Item Value Reference Range Interpretation Comments Hgb (test code = Hgb) 14.4 14.0-18.0 [facility] CenterAmpeywlSHJOMSRKTE4456-98-40 02:38:00 Test Item Value Reference Range Interpretation Comments MCV (test code = MCV) 88.3 80.0-94.0 [facility] CenterWivzalqLRBGUYJLSO8381-27-42 02:38:00 Test Item Value Reference Range Interpretation Comments MCH (test code = MCH) 29.6 pg 27.0-31.0 [facility] CenterLhbldjjRUFLRAVNUI7612-09-11 02:38:00 Test Item Value Reference Range Interpretation Comments MCHC (test code = MCHC) 33.6 32.0-36.0 [facility] CenterYawiaauHOCVNANIWB6561-96-73 02:38:00 Test Item Value Reference Range Interpretation Comments MPV (test code = MPV) 9.4 7.4-10.4 [facility] CenterMelevwdYPFDWPSBXX0698-07-61 02:38:00 Test Item Value Reference Range Interpretation Comments RDW (test code = RDW) 13.4 11.5-14.5 [facility] CenterEtcmbrzLOVIHEELPA4721-42-77 02:38:00 Test Item Value Reference Range Interpretation Comments Platelet (test code = Platelet) 145 133-450 [facility] KlebergVnqccdnAZMCZAFXSG6228-68-14 02:38:00 Test Item Value Reference Range Interpretation Comments Salicylate Lvl (test no gt See_Comment [Autom ated message] The code = Salicylate Lvl) syste m which generated this result tra nsmitted reference range : <=30.0. The reference r annemarie was not used to int erpret this result as normal/abnormal . [facility] LancasterBnynkesKPLCKYIEAA5062-63-89 02:38:00 Test Item Value Reference Range Interpretation Comments Acetaminoph Lvl (test code (04/06/16 8:38 PM) 10-20 = Acetaminoph Lvl) [facility] HospitalannVIRAL - [id number] 02:38:00 Test Item Value Reference Range Interpretation Comments Influ B (test code = Negative (04/06/16 8:38 Influ B) PM) [facility] - [id number] 02:38:00 Test Item Value Reference Range Interpretation Comments Influ A (test code = Negative (04/06/16 8:38 Influ A) PM) [facility] LancasterannCARDIAC [id number] 02:38:00 Test Item Value Reference Range Interpretation Comments Total CK (test code = Total CK) 598 12-191 [facility] [id number] 02:38:00 Test Item Value Reference Range Interpretation Comments eGFR (test code = eGFR) 121 [facility] [id number] 02:38:00 Test Item Value Reference Range Interpretation Comments Calcium Lvl (test code = Calcium Lvl) 9.2 8.5-10.5 [facility] [id number] 02:38:00 Test Item Value Reference Range Interpretation Comments Total Protein (test code = Total 7.6 6.4-8.4 Protein) [facility] [id number] 02:38:00 Test Item Value Reference Range Interpretation Comments CO2 (test code = CO2) 22 24-32 [facility] [id number] 02:38:00 Test Item Value Reference Range Interpretation Comments AST (test code = AST) 43 See_Comment [Auto mated message] The system which ge nerated this result transmit abdelrahman reference range : <=37. The reference range was not used to interpr et this result as gurpreet l/abnormal. [facility] [id number] 02:38:00 Test Item Value Reference Range Interpretation Comments Albumin Lvl (test code = Albumin Lvl) 4.4 3.5-5.0 [facility]JOVZB7851-40-65 02:38:00 Test Item Value Reference Range Interpretation Comments ALT (test code = ALT) 22 See_Comment [Auto mated message] The system which ge nerated this result transmit abdelrahman reference range : <=65. The reference range was not used to interpr et this result as gurpreet l/abnormal. [facility]2016-12-08 02:38:00 Test Item Value Reference Range Interpretation Comments Chloride Lvl (test code = Chloride Lvl) 101 95-109 [facility]2016-12-08 02:38:00 Test Item Value Reference Range Interpretation Comments Creatinine Lvl (test code = Creatinine 0.81 0.50-1.40 Lvl) [facility]2016-12-08 02:38:00 Test Item Value Reference Range Interpretation Comments Sodium Lvl (test code = Sodium Lvl) 136 135-145 [facility]2016-12-08 02:38:00 Test Item Value Reference Range Interpretation Comments Potassium Lvl (test code = Potassium 4.4 3.5-5.1 Lvl) [facility]2016-12-08 02:38:00 Test Item Value Reference Range Interpretation Comments Bili Total (test code = Bili Total) 0.9 0.2-1.3 [facility]2016-12-08 02:38:00 Test Item Value Reference Range Interpretation Comments Alk Phos (test code = Alk Phos) 34 39-136 [facility]2016-12-08 02:38:00 Test Item Value Reference Range Interpretation Comments Glucose Lvl (test code = Glucose Lvl) 63 70-99 [facility]2016-12-08 02:38:00 Test Item Value Reference Range Interpretation Comments BUN (test code = BUN) 14 7-22 [facility]2016-12-08 02:38:00 Test Item Value Reference Range Interpretation Comments AGAP (test code = AGAP) 17.4 10.0-20.0 [facility]2016-12-08 02:38:00 Test Item Value Reference Range Interpretation Comments B/C Ratio (test code = B/C Ratio) 17 6-25 [facility]2016-12-08 02:38:00 Test Item Value Reference Range Interpretation Comments Globulin (test code = Globulin) 3.2 2.7-4.2 [facility]2016-12-08 02:38:00 Test Item Value Reference Range Interpretation Comments A/G Ratio (test code = A/G Ratio) 1.4 0.7-1.6 [facility] CenterOitdsxfTCRIMMPMMQ8176-29-69 02:38:00 Test Item Value Reference Range Interpretation Comments Lymphocytes # (test code = Lymphocytes 1.7 1.0-5.5 #) [facility] CenterAxmzqalEQZEJXDLBR3265-43-72 02:38:00 Test Item Value Reference Range Interpretation Comments Eosinophils (test code = 1.0 See_Comment [A utomated message] The Eosinophils) system which ge nerated this result tra nsmitted reference range : <=4.0. The reference r annemarie was not used to int erpret this result as normal/abnormal . [facility] CenterAabztxuSMPUFJYYOA6827-30-00 02:38:00 Test Item Value Reference Range Interpretation Comments Basophils (test code = 0.4 See_Comment [Aut omated message] The Basophils) system which ge nerated this result tra nsmitted reference range : <=1.0. The reference r annemarie was not used to int erpret this result as normal/abnormal . [facility] CenterZeuunckHMPWBGNOTA2271-52-36 02:38:00 Test Item Value Reference Range Interpretation Comments Segs-Bands # (test code = Segs-Bands #) 4.2 1.5-8.1 [facility] CenterCtohoevUOXJGRCUBJ1938-95-14 02:38:00 Test Item Value Reference Range Interpretation Comments Monocytes (test code = Monocytes) 9.2 2.0-12.0 [facility] CenterMfvzqpmXGXIEZNXDO1645-21-50 02:38:00 Test Item Value Reference Range Interpretation Comments Monocytes # (test code 0.6 See_Comment [Aut omated message] The = Monocytes #) system which generated this result tra nsmitted reference range : <=0.8. The reference r annemarie was not used to int erpret this result as normal/abnormal . [facility] CenterMxedormKNZVHQBQJC0570-93-15 02:38:00 Test Item Value Reference Range Interpretation Comments Eosinophils # (test code 0.1 See_Comment [A utomated message] The = Eosinophils #) system wh h generated this result tra nsmitted reference range : <=0.5. The reference r annemarie was not used to int erpret this result as normal/abnormal . [facility] CenterLlujimhKRXLDLICFC7498-58-00 02:38:00 Test Item Value Reference Range Interpretation Comments Lymphocytes (test code = Lymphocytes) 26.3 20.0-40.0 [facility] CenterBbjceqkJHYKQRTXFP4518-75-22 02:38:00 Test Item Value Reference Range Interpretation Comments Segs (test code = Segs) 63.1 45.0-75.0 [facility] CenterBxkatlnOTEAIGBRIL8731-40-26 02:38:00 Test Item Value Reference Range Interpretation Comments WBC (test code = WBC) 6.6 3.7-10.4 [facility] CenterQspclgyVLLMHUENKH0813-81-54 02:38:00 Test Item Value Reference Range Interpretation Comments Hct (test code = Hct) 42.9 42.0-54.0 [facility] CenterIsncmaqRASGBJVOCA3087-96-22 02:38:00 Test Item Value Reference Range Interpretation Comments RBC (test code = RBC) 4.86 4.70-6.10 [facility] CenterWmutehkDJEKHKWQFQ2627-35-23 02:38:00 Test Item Value Reference Range Interpretation Comments Hgb (test code = Hgb) 14.4 14.0-18.0 [facility] CenterIwmukeiWTUEBQYMYE1026-18-34 02:38:00 Test Item Value Reference Range Interpretation Comments MCV (test code = MCV) 88.3 80.0-94.0 [facility] CenterYspaknhQRLOCLQYHG3110-82-47 02:38:00 Test Item Value Reference Range Interpretation Comments MCH (test code = MCH) 29.6 pg 27.0-31.0 [facility] CenterRflftckDIGSRFNZXG9662-48-78 02:38:00 Test Item Value Reference Range Interpretation Comments MCHC (test code = MCHC) 33.6 32.0-36.0 [facility] CenterNrqeuecVFKGINQKQW9499-51-73 02:38:00 Test Item Value Reference Range Interpretation Comments MPV (test code = MPV) 9.4 7.4-10.4 [facility] CenterQuqejqoQCKIGJTIGF9900-90-84 02:38:00 Test Item Value Reference Range Interpretation Comments RDW (test code = RDW) 13.4 11.5-14.5 [facility] CenterAchjzfiYEOKEZPZUG5961-68-34 02:38:00 Test Item Value Reference Range Interpretation Comments Platelet (test code = Platelet) 145 133-450 [facility] CenterFacmcpcTKZHZUEWLX8132-75-86 02:38:00 Test Item Value Reference Range Interpretation Comments Salicylate Lvl (test no gt See_Comment [Autom ated message] The code = Salicylate Lvl) syste m which generated this result tra nsmitted reference range : <=30.0. The reference r annemarie was not used to int erpret this result as normal/abnormal . [facility] HzypirqICFMJKGEKY8259-39-99 02:38:00 Test Item Value Reference Range Interpretation Comments Acetaminoph Lvl (test code (04/06/16 8:38 PM) 10-20 = Acetaminoph Lvl) [facility] [id number] 02:38:00 Test Item Value Reference Range Interpretation Comments Influ B (test code = Negative (04/06/16 8:38 Influ B) PM) [facility] - [id number] 02:38:00 Test Item Value Reference Range Interpretation Comments Influ A (test code = Negative (04/06/16 8:38 Influ A) PM) [facility] [employer]annCARDIAC [id number] 02:38:00 Test Item Value Reference Range Interpretation Comments Total CK (test code = Total CK) 598 12-191 [facility]annCHE[facility] [id number] 02:38:00 Test Item Value Reference Range Interpretation Comments eGFR (test code = eGFR) 121 [facility]annCHEM [id number] 02:38:00 Test Item Value Reference Range Interpretation Comments Calcium Lvl (test code = Calcium Lvl) 9.2 8.5-10.5 [facility]annCHEM [id number] 02:38:00 Test Item Value Reference Range Interpretation Comments Total Protein (test code = Total 7.6 6.4-8.4 Protein) [facility]annCHEM [id number] 02:38:00 Test Item Value Reference Range Interpretation Comments CO2 (test code = CO2) 22 24-32 [facility]annCHEM [id number] 02:38:00 Test Item Value Reference Range Interpretation Comments AST (test code = AST) 43 See_Comment [Auto mated message] The system which ge nerated this result transmit abdelrahman reference range : <=37. The reference range was not used to interpr et this result as gurpreet l/abnormal. [facility] [employer] [id number] 02:38:00 Test Item Value Reference Range Interpretation Comments Albumin Lvl (test code = Albumin Lvl) 4.4 3.5-5.0 [facility]2016-12-08 02:38:00 Test Item Value Reference Range Interpretation Comments ALT (test code = ALT) 22 See_Comment [Auto mated message] The system which ge nerated this result transmit abdelrahman reference range : <=65. The reference range was not used to interpr et this result as gurpreet l/abnormal. [facility]2016-12-08 02:38:00 Test Item Value Reference Range Interpretation Comments Chloride Lvl (test code = Chloride Lvl) 101 95-109 [facility]2016-12-08 02:38:00 Test Item Value Reference Range Interpretation Comments Creatinine Lvl (test code = Creatinine 0.81 0.50-1.40 Lvl) [facility]2016-12-08 02:38:00 Test Item Value Reference Range Interpretation Comments Sodium Lvl (test code = Sodium Lvl) 136 135-145 [facility]2016-12-08 02:38:00 Test Item Value Reference Range Interpretation Comments Potassium Lvl (test code = Potassium 4.4 3.5-5.1 Lvl) [facility]2016-12-08 02:38:00 Test Item Value Reference Range Interpretation Comments Bili Total (test code = Bili Total) 0.9 0.2-1.3 [facility]2016-12-08 02:38:00 Test Item Value Reference Range Interpretation Comments Alk Phos (test code = Alk Phos) 34 39-136 [facility]2016-12-08 02:38:00 Test Item Value Reference Range Interpretation Comments Glucose Lvl (test code = Glucose Lvl) 63 70-99 [facility]2016-12-08 02:38:00 Test Item Value Reference Range Interpretation Comments BUN (test code = BUN) 14 7-22 [facility]2016-12-08 02:38:00 Test Item Value Reference Range Interpretation Comments AGAP (test code = AGAP) 17.4 10.0-20.0 [facility]2016-12-08 02:38:00 Test Item Value Reference Range Interpretation Comments B/C Ratio (test code = B/C Ratio) 17 6-25 [facility]2016-12-08 02:38:00 Test Item Value Reference Range Interpretation Comments Globulin (test code = Globulin) 3.2 2.7-4.2 [facility]2016-12-08 02:38:00 Test Item Value Reference Range Interpretation Comments A/G Ratio (test code = A/G Ratio) 1.4 0.7-1.6 [facility]UmxabfdVTLGUEAFYY7186-81-72 02:38:00 Test Item Value Reference Range Interpretation Comments Lymphocytes # (test code = Lymphocytes 1.7 1.0-5.5 #) [facility] CenterZhxwjzrIGMJNGQYAX8394-69-36 02:38:00 Test Item Value Reference Range Interpretation Comments Eosinophils (test code = 1.0 See_Comment [A utomated message] The Eosinophils) system which ge nerated this result tra nsmitted reference range : <=4.0. The reference r annemarie was not used to int erpret this result as normal/abnormal . [facility] CenterOmuehilMYCWLUBULL0946-15-57 02:38:00 Test Item Value Reference Range Interpretation Comments Basophils (test code = 0.4 See_Comment [Aut omated message] The Basophils) system which ge nerated this result tra nsmitted reference range : <=1.0. The reference r annemarie was not used to int erpret this result as normal/abnormal . [facility] CenterPawymbjWZGMPRNTCA5662-27-82 02:38:00 Test Item Value Reference Range Interpretation Comments Segs-Bands # (test code = Segs-Bands #) 4.2 1.5-8.1 [facility] CenterPaiykxxBRBDTHAGTQ2768-85-29 02:38:00 Test Item Value Reference Range Interpretation Comments Monocytes (test code = Monocytes) 9.2 2.0-12.0 [facility] CenterCkrqpqsFCGUHFNDQC7244-34-27 02:38:00 Test Item Value Reference Range Interpretation Comments Monocytes # (test code 0.6 See_Comment [Aut omated message] The = Monocytes #) system which generated this result tra nsmitted reference range : <=0.8. The reference r anenmarie was not used to int erpret this result as normal/abnormal . [facility] CenterYdksugbUVHHDVEMHG0240-61-66 02:38:00 Test Item Value Reference Range Interpretation Comments Eosinophils # (test code 0.1 See_Comment [A utomated message] The = Eosinophils #) system [employer] generated this result tra nsmitted reference range : <=0.5. The reference r annemarie was not used to int erpret this result as normal/abnormal . [facility] CenterEuwfoaxAZZEQWXLMB2392-93-78 02:38:00 Test Item Value Reference Range Interpretation Comments Lymphocytes (test code = Lymphocytes) 26.3 20.0-40.0 [facility] CenterXkhygetFUFMZBHQQN7055-32-46 02:38:00 Test Item Value Reference Range Interpretation Comments Segs (test code = Segs) 63.1 45.0-75.0 [facility] CenterKixfwrjIALZUAUJKW3984-88-83 02:38:00 Test Item Value Reference Range Interpretation Comments WBC (test code = WBC) 6.6 3.7-10.4 [facility] CenterOqbpjuiKLNVDJOAEV3220-09-63 02:38:00 Test Item Value Reference Range Interpretation Comments Hct (test code = Hct) 42.9 42.0-54.0 [facility] CenterCsmaniwNEWTXOOTAE7809-75-32 02:38:00 Test Item Value Reference Range Interpretation Comments RBC (test code = RBC) 4.86 4.70-6.10 [facility] CenterTgjhmmnHOMGOOWLWQ1602-79-01 02:38:00 Test Item Value Reference Range Interpretation Comments Hgb (test code = Hgb) 14.4 14.0-18.0 [facility] CenterNfizhboZUCUABJUKR7635-85-81 02:38:00 Test Item Value Reference Range Interpretation Comments MCV (test code = MCV) 88.3 80.0-94.0 [facility] CenterMwiigyvZFCUEZOGSY6184-97-93 02:38:00 Test Item Value Reference Range Interpretation Comments MCH (test code = MCH) 29.6 pg 27.0-31.0 [facility] CenterWewwhbkARXVGZMGJX5201-43-39 02:38:00 Test Item Value Reference Range Interpretation Comments MCHC (test code = MCHC) 33.6 32.0-36.0 [facility] CenterGeguoekIQLNUYKMSJ1846-97-65 02:38:00 Test Item Value Reference Range Interpretation Comments MPV (test code = MPV) 9.4 7.4-10.4 [facility] CenterWgoperaATTBCZNVUC2742-69-58 02:38:00 Test Item Value Reference Range Interpretation Comments RDW (test code = RDW) 13.4 11.5-14.5 [facility] QhymftsUQFZHVZKIH1055-87-39 02:38:00 Test Item Value Reference Range Interpretation Comments Platelet (test code = Platelet) 145 133-450 [facility] McsvvaaHBONHZJQVH1184-37-78 02:38:00 Test Item Value Reference Range Interpretation Comments Salicylate Lvl (test no gt See_Comment [Autom ated message] The code = Salicylate Lvl) syste m which generated this result tra nsmitted reference range : <=30.0. The reference r annemarie was not used to int erpret this result as normal/abnormal . [facility] LancasterEpuazjoONLCBMWOYL6461-50-07 02:38:00 Test Item Value Reference Range Interpretation Comments Acetaminoph Lvl (test code (04/06/16 8:38 PM) 10-20 = Acetaminoph Lvl) [facility]annVIRAL - [id number] 02:38:00 Test Item Value Reference Range Interpretation Comments Influ B (test code = Negative (04/06/16 8:38 Influ B) PM) [facility] [id number] 02:38:00 Test Item Value Reference Range Interpretation Comments Influ A (test code = Negative (04/06/16 8:38 Influ A) PM) [facility]annCARDIAC [id number] 02:38:00 Test Item Value Reference Range Interpretation Comments Total CK (test code = Total CK) 598 12-191 [facility] ViveveCHEM [id number] 02:38:00 Test Item Value Reference Range Interpretation Comments eGFR (test code = eGFR) 121 [facility] [employer]CHEM [id number] 02:38:00 Test Item Value Reference Range Interpretation Comments Calcium Lvl (test code = Calcium Lvl) 9.2 8.5-10.5 [facility] [id number] 02:38:00 Test Item Value Reference Range Interpretation Comments Total Protein (test code = Total 7.6 6.4-8.4 Protein) [facility] [id number] 02:38:00 Test Item Value Reference Range Interpretation Comments CO2 (test code = CO2) 22 24-32 [facility]CHE[facility] [id number] 02:38:00 Test Item Value Reference Range Interpretation Comments AST (test code = AST) 43 See_Comment [Auto mated message] The system which ge nerated this result transmit abdelrahman reference range : <=37. The reference range was not used to interpr et this result as gurpreet l/abnormal. [facility]2016-12-08 02:38:00 Test Item Value Reference Range Interpretation Comments Albumin Lvl (test code = Albumin Lvl) 4.4 3.5-5.0 [facility]2016-12-08 02:38:00 Test Item Value Reference Range Interpretation Comments ALT (test code = ALT) 22 See_Comment [Auto mated message] The system which ge nerated this result transmit abdelrahman reference range : <=65. The reference range was not used to interpr et this result as gurpreet l/abnormal. [facility]2016-12-08 02:38:00 Test Item Value Reference Range Interpretation Comments Chloride Lvl (test code = Chloride Lvl) 101 95-109 [facility]2016-12-08 02:38:00 Test Item Value Reference Range Interpretation Comments Creatinine Lvl (test code = Creatinine 0.81 0.50-1.40 Lvl) [facility]2016-12-08 02:38:00 Test Item Value Reference Range Interpretation Comments Sodium Lvl (test code = Sodium Lvl) 136 135-145 [facility]2016-12-08 02:38:00 Test Item Value Reference Range Interpretation Comments Potassium Lvl (test code = Potassium 4.4 3.5-5.1 Lvl) [facility]2016-12-08 02:38:00 Test Item Value Reference Range Interpretation Comments Bili Total (test code = Bili Total) 0.9 0.2-1.3 [facility]2016-12-08 02:38:00 Test Item Value Reference Range Interpretation Comments Alk Phos (test code = Alk Phos) 34 39-136 [facility]2016-12-08 02:38:00 Test Item Value Reference Range Interpretation Comments Glucose Lvl (test code = Glucose Lvl) 63 70-99 [facility]2016-12-08 02:38:00 Test Item Value Reference Range Interpretation Comments BUN (test code = BUN) 14 7-22 [facility]2016-12-08 02:38:00 Test Item Value Reference Range Interpretation Comments AGAP (test code = AGAP) 17.4 10.0-20.0 [facility]2016-12-08 02:38:00 Test Item Value Reference Range Interpretation Comments B/C Ratio (test code = B/C Ratio) 17 6-25 [facility]2016-12-08 02:38:00 Test Item Value Reference Range Interpretation Comments Globulin (test code = Globulin) 3.2 2.7-4.2 [facility]2016-12-08 02:38:00 Test Item Value Reference Range Interpretation Comments A/G Ratio (test code = A/G Ratio) 1.4 0.7-1.6 [facility] CenterPpadbmmVHTBHROHNO6707-68-10 02:38:00 Test Item Value Reference Range Interpretation Comments Lymphocytes # (test code = Lymphocytes 1.7 1.0-5.5 #) [facility] CenterPozjjcoHFZBMQELXY7901-54-48 02:38:00 Test Item Value Reference Range Interpretation Comments Eosinophils (test code = 1.0 See_Comment [A utomated message] The Eosinophils) system which ge nerated this result tra nsmitted reference range : <=4.0. The reference r annemarie was not used to int erpret this result as normal/abnormal . [facility] CenterQekbbkzSYEZSXLCDW1683-38-29 02:38:00 Test Item Value Reference Range Interpretation Comments Basophils (test code = 0.4 See_Comment [Aut omated message] The Basophils) system which ge nerated this result tra nsmitted reference range : <=1.0. The reference r annemarie was not used to int erpret this result as normal/abnormal . [facility] CenterNoswworLMZEQMBZCH0464-97-73 02:38:00 Test Item Value Reference Range Interpretation Comments Segs-Bands # (test code = Segs-Bands #) 4.2 1.5-8.1 [facility] CenterSsaeaafJTDTAVXVFR3429-01-08 02:38:00 Test Item Value Reference Range Interpretation Comments Monocytes (test code = Monocytes) 9.2 2.0-12.0 [facility] CenterDdjhmluNIFSOBIPQR4464-89-25 02:38:00 Test Item Value Reference Range Interpretation Comments Monocytes # (test code 0.6 See_Comment [Aut omated message] The = Monocytes #) system which generated this result tra nsmitted reference range : <=0.8. The reference r annemarie was not used to int erpret this result as normal/abnormal . [facility] CenterSjikfktHYNXDQEZDH6260-96-62 02:38:00 Test Item Value Reference Range Interpretation Comments Eosinophils # (test code 0.1 See_Comment [A utomated message] The = Eosinophils #) system [employer] generated this result tra nsmitted reference range : <=0.5. The reference r annemarie was not used to int erpret this result as normal/abnormal . [facility] CenterUazycumJCIAMBNUDY3483-22-10 02:38:00 Test Item Value Reference Range Interpretation Comments Lymphocytes (test code = Lymphocytes) 26.3 20.0-40.0 [facility] CenterVxjrndgLTTAFKBEDW7925-40-41 02:38:00 Test Item Value Reference Range Interpretation Comments Segs (test code = Segs) 63.1 45.0-75.0 [facility] CenterJeuivpzOYEIPVPKLL2378-66-67 02:38:00 Test Item Value Reference Range Interpretation Comments WBC (test code = WBC) 6.6 3.7-10.4 [facility] CenterFrhpjzsDITYWUUNJZ5486-37-12 02:38:00 Test Item Value Reference Range Interpretation Comments Hct (test code = Hct) 42.9 42.0-54.0 [facility] CenterRxpivyoIMZPAORBAE3858-63-96 02:38:00 Test Item Value Reference Range Interpretation Comments RBC (test code = RBC) 4.86 4.70-6.10 [facility] CenterRhrcgarPNVYRCWOWH7901-25-29 02:38:00 Test Item Value Reference Range Interpretation Comments Hgb (test code = Hgb) 14.4 14.0-18.0 [facility] CenterLugrtyzNPGONJWAFA2809-28-25 02:38:00 Test Item Value Reference Range Interpretation Comments MCV (test code = MCV) 88.3 80.0-94.0 [facility] CenterKccntauLIWMOTNZXJ0385-19-54 02:38:00 Test Item Value Reference Range Interpretation Comments MCH (test code = MCH) 29.6 pg 27.0-31.0 [facility] CenterUscbhgcTTIWUSQNLS6961-11-25 02:38:00 Test Item Value Reference Range Interpretation Comments MCHC (test code = MCHC) 33.6 32.0-36.0 [facility] CenterXcxjgtnEMWHWBXYUL7866-03-24 02:38:00 Test Item Value Reference Range Interpretation Comments MPV (test code = MPV) 9.4 7.4-10.4 [facility]WyvffjjHWQVRZPCGK6329-38-35 02:38:00 Test Item Value Reference Range Interpretation Comments RDW (test code = RDW) 13.4 11.5-14.5 [facility] KlebergLetyhuyQGRKOVXEZL3210-90-60 02:38:00 Test Item Value Reference Range Interpretation Comments Platelet (test code = Platelet) 145 133-450 [facility] KlebergKnahirmONJIRGGOMM9175-96-05 02:38:00 Test Item Value Reference Range Interpretation Comments Salicylate Lvl (test no gt See_Comment [Autom ated message] The code = Salicylate Lvl) syste m which generated this result tra nsmitted reference range : <=30.0. The reference r annemarie was not used to int erpret this result as normal/abnormal . [facility] CenterDmuihiwYIYRTNKWFB6502-58-49 02:38:00 Test Item Value Reference Range Interpretation Comments Acetaminoph Lvl (test code (04/06/16 8:38 PM) 10-20 = Acetaminoph Lvl) [facility]bergVIR[facility] - [id number] 02:38:00 Test Item Value Reference Range Interpretation Comments Influ B (test code = Negative (04/06/16 8:38 Influ B) PM) [facility] - [id number] 02:38:00 Test Item Value Reference Range Interpretation Comments Influ A (test code = Negative (04/06/16 8:38 Influ A) PM) [facility]bergCARDIAC YTXVVVD1432-30-65 02:38:00 Test Item Value Reference Range Interpretation Comments Total CK (test code = Total CK) 598 12-191 [facility]CHE[facility] [id number] 02:38:00 Test Item Value Reference Range Interpretation Comments eGFR (test code = eGFR) 121 [facility]annCHEM EYFGT9914-34-14 02:38:00 Test Item Value Reference Range Interpretation Comments Calcium Lvl (test code = Calcium Lvl) 9.2 8.5-10.5 [facility] LancasterannCHEM [id number] 02:38:00 Test Item Value Reference Range Interpretation Comments Total Protein (test code = Total 7.6 6.4-8.4 Protein) [facility] LancasterRentFeeder [id number] 02:38:00 Test Item Value Reference Range Interpretation Comments CO2 (test code = CO2) 22 24-32 [facility]2016-12-08 02:38:00 Test Item Value Reference Range Interpretation Comments AST (test code = AST) 43 See_Comment [Auto mated message] The system which ge nerated this result transmit abdelrahman reference range : <=37. The reference range was not used to interpr et this result as gurpreet l/abnormal. [facility]2016-12-08 02:38:00 Test Item Value Reference Range Interpretation Comments Albumin Lvl (test code = Albumin Lvl) 4.4 3.5-5.0 [facility]2016-12-08 02:38:00 Test Item Value Reference Range Interpretation Comments ALT (test code = ALT) 22 See_Comment [Auto mated message] The system which ge nerated this result transmit abdelrahman reference range : <=65. The reference range was not used to interpr et this result as gurpreet l/abnormal. [facility]2016-12-08 02:38:00 Test Item Value Reference Range Interpretation Comments Chloride Lvl (test code = Chloride Lvl) 101 95-109 [facility]2016-12-08 02:38:00 Test Item Value Reference Range Interpretation Comments Creatinine Lvl (test code = Creatinine 0.81 0.50-1.40 Lvl) [facility]2016-12-08 02:38:00 Test Item Value Reference Range Interpretation Comments Sodium Lvl (test code = Sodium Lvl) 136 135-145 [facility]2016-12-08 02:38:00 Test Item Value Reference Range Interpretation Comments Potassium Lvl (test code = Potassium 4.4 3.5-5.1 Lvl) [facility]2016-12-08 02:38:00 Test Item Value Reference Range Interpretation Comments Bili Total (test code = Bili Total) 0.9 0.2-1.3 [facility]2016-12-08 02:38:00 Test Item Value Reference Range Interpretation Comments Alk Phos (test code = Alk Phos) 34 39-136 [facility]2016-12-08 02:38:00 Test Item Value Reference Range Interpretation Comments Glucose Lvl (test code = Glucose Lvl) 63 70-99 [facility]2016-12-08 02:38:00 Test Item Value Reference Range Interpretation Comments BUN (test code = BUN) 14 7-22 [facility]2016-12-08 02:38:00 Test Item Value Reference Range Interpretation Comments AGAP (test code = AGAP) 17.4 10.0-20.0 [place] [id number] 02:38:00 Test Item Value Reference Range Interpretation Comments B/C Ratio (test code = B/C Ratio) 17 6-25 [place] 802146-12-08 02:38:00 Test Item Value Reference Range Interpretation Comments Globulin (test code = Globulin) 3.2 2.7-4.2 [facility]2016-12-08 02:38:00 Test Item Value Reference Range Interpretation Comments A/G Ratio (test code = A/G Ratio) 1.4 0.7-1.6 [facility] CenterDefkmyiUSWHOXCQUS4685-61-16 02:38:00 Test Item Value Reference Range Interpretation Comments Lymphocytes # (test code = Lymphocytes 1.7 1.0-5.5 #) [facility] CenterLukahnfJHMQWFFTPH5652-18-46 02:38:00 Test Item Value Reference Range Interpretation Comments Eosinophils (test code = 1.0 See_Comment [A utomated message] The Eosinophils) system which ge nerated this result tra nsmitted reference range : <=4.0. The reference r annemarie was not used to int erpret this result as normal/abnormal . [facility] CenterKdbmjtdKRYWTRTRLL2203-19-26 02:38:00 Test Item Value Reference Range Interpretation Comments Basophils (test code = 0.4 See_Comment [Aut omated message] The Basophils) system which ge nerated this result tra nsmitted reference range : <=1.0. The reference r annemarie was not used to int erpret this result as normal/abnormal . [facility] CenterFgtjtinSUHIKZDPKT7172-63-62 02:38:00 Test Item Value Reference Range Interpretation Comments Segs-Bands # (test code = Segs-Bands #) 4.2 1.5-8.1 [facility] CenterYiklvqyLRBCDNNUWF6519-05-16 02:38:00 Test Item Value Reference Range Interpretation Comments Monocytes (test code = Monocytes) 9.2 2.0-12.0 [facility] CenterYckezliPQLOWVAMKE9297-83-30 02:38:00 Test Item Value Reference Range Interpretation Comments Monocytes # (test code 0.6 See_Comment [Aut omated message] The = Monocytes #) system which generated this result tra nsmitted reference range : <=0.8. The reference r annemarie was not used to int erpret this result as normal/abnormal . [facility] CenterHjilaghQTMHWIAGIU4774-67-74 02:38:00 Test Item Value Reference Range Interpretation Comments Eosinophils # (test code 0.1 See_Comment [A utomated message] The = Eosinophils #) system whic h generated this result tra nsmitted reference range : <=0.5. The reference r annemarie was not used to int erpret this result as normal/abnormal . [facility] CenterRzkzgtyBWZEPLTFDE8687-52-11 02:38:00 Test Item Value Reference Range Interpretation Comments Lymphocytes (test code = Lymphocytes) 26.3 20.0-40.0 [facility] CenterZarzureMKDLQTERAQ8087-77-44 02:38:00 Test Item Value Reference Range Interpretation Comments Segs (test code = Segs) 63.1 45.0-75.0 [facility] CenterUrimdmtTDDLMLVCSX8535-14-59 02:38:00 Test Item Value Reference Range Interpretation Comments WBC (test code = WBC) 6.6 3.7-10.4 [facility] CenterUwjhtvtFFAVMIBLVF3328-32-48 02:38:00 Test Item Value Reference Range Interpretation Comments Hct (test code = Hct) 42.9 42.0-54.0 [facility] CenterLpqsslnBBQTSGUVOM4471-49-88 02:38:00 Test Item Value Reference Range Interpretation Comments RBC (test code = RBC) 4.86 4.70-6.10 [facility] CenterHymwxscAGTVOYBWPH5532-11-69 02:38:00 Test Item Value Reference Range Interpretation Comments Hgb (test code = Hgb) 14.4 14.0-18.0 [facility] CenterEbhmsldSYOUEVFWVP1417-28-94 02:38:00 Test Item Value Reference Range Interpretation Comments MCV (test code = MCV) 88.3 80.0-94.0 [facility] CenterZhanyxzQGLQAEHTLK6277-16-66 02:38:00 Test Item Value Reference Range Interpretation Comments MCH (test code = MCH) 29.6 pg 27.0-31.0 [facility] CenterVtzhrrlPUXCXVTLWG0520-18-82 02:38:00 Test Item Value Reference Range Interpretation Comments MCHC (test code = MCHC) 33.6 32.0-36.0 [facility] LancasterXavserkJESCKEGUUV1433-07-82 02:38:00 Test Item Value Reference Range Interpretation Comments MPV (test code = MPV) 9.4 7.4-10.4 [facility] LancasterMchqpywZSPCPLADTS5181-89-33 02:38:00 Test Item Value Reference Range Interpretation Comments RDW (test code = RDW) 13.4 11.5-14.5 [facility] LancasterTtfevsdODJREOJILB3304-85-46 02:38:00 Test Item Value Reference Range Interpretation Comments Platelet (test code = Platelet) 145 133-450 [facility] LancasterXhqgincWZXMWLWTHK6330-97-14 02:38:00 Test Item Value Reference Range Interpretation Comments Salicylate Lvl (test no gt See_Comment [Autom ated message] The code = Salicylate Lvl) syste m which generated this result tra nsmitted reference range : <=30.0. The reference r annemarie was not used to int erpret this result as normal/abnormal . [facility] LancasterNdkjtibWIEGUFZGZJ9318-61-72 02:38:00 Test Item Value Reference Range Interpretation Comments Acetaminoph Lvl (test code (04/06/16 8:38 PM) 10-20 = Acetaminoph Lvl) [facility] HermannVIRAL - [id number] 02:38:00 Test Item Value Reference Range Interpretation Comments Influ B (test code = Negative (04/06/16 8:38 Influ B) PM) [facility] HermannVIRAL - [id number] 02:38:00 Test Item Value Reference Range Interpretation Comments Influ A (test code = Negative (04/06/16 8:38 Influ A) PM) [facility] LancasterannCARDIAC CSKKFFW4831-11-57 02:38:00 Test Item Value Reference Range Interpretation Comments Total CK (test code = Total CK) 598 12-191 [facility] LancasterannCHEM [id number] 02:38:00 Test Item Value Reference Range Interpretation Comments eGFR (test code = eGFR) 121 [facility] LancasterannCHEM VKBNS8154-02-01 02:38:00 Test Item Value Reference Range Interpretation Comments Calcium Lvl (test code = Calcium Lvl) 9.2 8.5-10.5 [facility] LancasterannCHEM [id number] 02:38:00 Test Item Value Reference Range Interpretation Comments Total Protein (test code = Total 7.6 6.4-8.4 Protein) [facility]2016-12-08 02:38:00 Test Item Value Reference Range Interpretation Comments CO2 (test code = CO2) 22 24-32 [facility]2016-12-08 02:38:00 Test Item Value Reference Range Interpretation Comments AST (test code = AST) 43 See_Comment [Auto mated message] The system which ge nerated this result transmit abdelrahman reference range : <=37. The reference range was not used to interpr et this result as gurpreet l/abnormal. [facility]2016-12-08 02:38:00 Test Item Value Reference Range Interpretation Comments Albumin Lvl (test code = Albumin Lvl) 4.4 3.5-5.0 [facility]2016-12-08 02:38:00 Test Item Value Reference Range Interpretation Comments ALT (test code = ALT) 22 See_Comment [Auto mated message] The system which ge nerated this result transmit abdelrahman reference range : <=65. The reference range was not used to interpr et this result as gurpreet l/abnormal. [facility]2016-12-08 02:38:00 Test Item Value Reference Range Interpretation Comments Chloride Lvl (test code = Chloride Lvl) 101 95-109 [facility]2016-12-08 02:38:00 Test Item Value Reference Range Interpretation Comments Creatinine Lvl (test code = Creatinine 0.81 0.50-1.40 Lvl) [facility]2016-12-08 02:38:00 Test Item Value Reference Range Interpretation Comments Sodium Lvl (test code = Sodium Lvl) 136 135-145 [facility]2016-12-08 02:38:00 Test Item Value Reference Range Interpretation Comments Potassium Lvl (test code = Potassium 4.4 3.5-5.1 Lvl) [facility]2016-12-08 02:38:00 Test Item Value Reference Range Interpretation Comments Bili Total (test code = Bili Total) 0.9 0.2-1.3 [facility]2016-12-08 02:38:00 Test Item Value Reference Range Interpretation Comments Alk Phos (test code = Alk Phos) 34 39-136 [facility]2016-12-08 02:38:00 Test Item Value Reference Range Interpretation Comments Glucose Lvl (test code = Glucose Lvl) 63 70-99 [facility]2016-12-08 02:38:00 Test Item Value Reference Range Interpretation Comments BUN (test code = BUN) 14 7-22 [facility]2016-12-08 02:38:00 Test Item Value Reference Range Interpretation Comments AGAP (test code = AGAP) 17.4 10.0-20.0 [facility]2016-12-08 02:38:00 Test Item Value Reference Range Interpretation Comments B/C Ratio (test code = B/C Ratio) 17 6-25 [place] 802146-12-08 02:38:00 Test Item Value Reference Range Interpretation Comments Globulin (test code = Globulin) 3.2 2.7-4.2 [facility]2016-12-08 02:38:00 Test Item Value Reference Range Interpretation Comments A/G Ratio (test code = A/G Ratio) 1.4 0.7-1.6 [place] 551096-12-08 02:38:00 Test Item Value Reference Range Interpretation Comments Lymphocytes # (test code = Lymphocytes 1.7 1.0-5.5 #) [facility]cz[facility]ubqBEAKYRRUOK4037[facility] 02:38:00 Test Item Value Reference Range Interpretation Comments Eosinophils (test code = 1.0 See_Comment [A utomated message] The Eosinophils) system which ge nerated this result tra nsmitted reference range : <=4.0. The reference r annemarie was not used to int erpret this result as normal/abnormal . [facility] CenterPzxasslRIZCRLUKEJ0286-44-75 02:38:00 Test Item Value Reference Range Interpretation Comments Basophils (test code = 0.4 See_Comment [Aut omated message] The Basophils) system which ge nerated this result tra nsmitted reference range : <=1.0. The reference r annemarie was not used to int erpret this result as normal/abnormal . [place] 551096-12-08 02:38:00 Test Item Value Reference Range Interpretation Comments Segs-Bands # (test code = Segs-Bands #) 4.2 1.5-8.[address]12-08 02:38:00 Test Item Value Reference Range Interpretation Comments Monocytes (test code = Monocytes) 9.2 2.0-12.0 [facility] CenterXanwgwgBHWJSRSPCA0001-18-65 02:38:00 Test Item Value Reference Range Interpretation Comments Monocytes # (test code 0.6 See_Comment [Aut omated message] The = Monocytes #) system which generated this result tra nsmitted reference range : <=0.8. The reference r annemarie was not used to int erpret this result as normal/abnormal . [facility] CenterPxzzptqWRRBJFAJJG0369-73-42 02:38:00 Test Item Value Reference Range Interpretation Comments Eosinophils # (test code 0.1 See_Comment [A utomated message] The = Eosinophils #) system whic h generated this result tra nsmitted reference range : <=0.5. The reference r annemarie was not used to int erpret this result as normal/abnormal . [facility] CenterQrnobsnDTHDGJIWVR9663-94-05 02:38:00 Test Item Value Reference Range Interpretation Comments Lymphocytes (test code = Lymphocytes) 26.3 20.0-40.0 [facility] CenterYzzchxtCRKVTKDEZN4409-64-46 02:38:00 Test Item Value Reference Range Interpretation Comments Segs (test code = Segs) 63.1 45.0-75.0 [facility] CenterLimepnrJFAMNPKJQT7958-23-93 02:38:00 Test Item Value Reference Range Interpretation Comments WBC (test code = WBC) 6.6 3.7-10.4 [facility] CenterZwvgpsvVZDHSAMGSB5276-44-97 02:38:00 Test Item Value Reference Range Interpretation Comments Hct (test code = Hct) 42.9 42.0-54.0 [facility] CenterFmnqkflXOCJIIOIHN2666-90-84 02:38:00 Test Item Value Reference Range Interpretation Comments RBC (test code = RBC) 4.86 4.70-6.10 [facility] CenterChpcmlwEFPOWWWHVX5330-33-15 02:38:00 Test Item Value Reference Range Interpretation Comments Hgb (test code = Hgb) 14.4 14.0-18.0 [facility] CenterAhyqzcgDTNBRGMCGP8137-64-77 02:38:00 Test Item Value Reference Range Interpretation Comments MCV (test code = MCV) 88.3 80.0-94.0 [facility] CenterKlyscjoYBTCKDIFVH2143-68-59 02:38:00 Test Item Value Reference Range Interpretation Comments MCH (test code = MCH) 29.6 pg 27.0-31.0 [facility] LancasterAcyelyeMTCPPKSGOT3432-72-03 02:38:00 Test Item Value Reference Range Interpretation Comments MCHC (test code = MCHC) 33.6 32.0-36.0 [facility] LancasterUzuhoelOITETBSVRX4080-56-95 02:38:00 Test Item Value Reference Range Interpretation Comments MPV (test code = MPV) 9.4 7.4-10.4 [facility] LancasterPvrispdDFJAZSSTEA3952-81-20 02:38:00 Test Item Value Reference Range Interpretation Comments RDW (test code = RDW) 13.4 11.5-14.5 [facility] LancasterWcdcppzTXFHTQYGVD8405-41-29 02:38:00 Test Item Value Reference Range Interpretation Comments Platelet (test code = Platelet) 145 133-450 [facility] LancasterOpbbhhbFAMKPBOHWV6872-37-40 02:38:00 Test Item Value Reference Range Interpretation Comments Salicylate Lvl (test no gt See_Comment [Autom ated message] The code = Salicylate Lvl) syste m which generated this result tra nsmitted reference range : <=30.0. The reference r annemarie was not used to int erpret this result as normal/abnormal . [facility]bergUedpkwhIZJDTESOQC0503-64-25 02:38:00 Test Item Value Reference Range Interpretation Comments Acetaminoph Lvl (test code (04/06/16 8:38 PM) 10-20 = Acetaminoph Lvl) [facility]annVIRAL - JDYRSWPJ9209-66-18 02:38:00 Test Item Value Reference Range Interpretation Comments Influ B (test code = Negative (04/06/16 8:38 Influ B) PM) [facility]annVIR[facility] - [id number] 02:38:00 Test Item Value Reference Range Interpretation Comments Influ A (test code = Negative (04/06/16 8:38 Influ A) PM) [facility] LancasterannCARDIAC AYJERTJ9624-30-56 02:38:00 Test Item Value Reference Range Interpretation Comments Total CK (test code = Total CK) 598 12-191 [facility] LancasterannCHEM XHNCD8375-06-47 02:38:00 Test Item Value Reference Range Interpretation Comments eGFR (test code = eGFR) 121 [facility] LancasterannCHEM DYFFM1630-71-05 02:38:00 Test Item Value Reference Range Interpretation Comments Calcium Lvl (test code = Calcium Lvl) 9.2 8.5-10.5 [facility]2016-12-08 02:38:00 Test Item Value Reference Range Interpretation Comments Total Protein (test code = Total 7.6 6.4-8.4 Protein) [facility]2016-12-08 02:38:00 Test Item Value Reference Range Interpretation Comments CO2 (test code = CO2) 22 24-32 [place] 802146-12-08 02:38:00 Test Item Value Reference Range Interpretation Comments AST (test code = AST) 43 See_Comment [Auto mated message] The system which ge nerated this result transmit abdelrahman reference range : <=37. The reference range was not used to interpr et this result as gurpreet l/abnormal. [facility]2016-12-08 02:38:00 Test Item Value Reference Range Interpretation Comments Albumin Lvl (test code = Albumin Lvl) 4.4 3.5-5.0 [facility]2016-12-08 02:38:00 Test Item Value Reference Range Interpretation Comments ALT (test code = ALT) 22 See_Comment [Auto mated message] The system which ge nerated this result transmit abdelrahman reference range : <=65. The reference range was not used to interpr et this result as gurpreet l/abnormal. [facility]2016-12-08 02:38:00 Test Item Value Reference Range Interpretation Comments Chloride Lvl (test code = Chloride Lvl) 101 95-109 [facility]2016-12-08 02:38:00 Test Item Value Reference Range Interpretation Comments Creatinine Lvl (test code = Creatinine 0.81 0.50-1.40 Lvl) [facility]2016-12-08 02:38:00 Test Item Value Reference Range Interpretation Comments Sodium Lvl (test code = Sodium Lvl) 136 135-145 [facility]2016-12-08 02:38:00 Test Item Value Reference Range Interpretation Comments Potassium Lvl (test code = Potassium 4.4 3.5-5.1 Lvl) [facility]2016-12-08 02:38:00 Test Item Value Reference Range Interpretation Comments Bili Total (test code = Bili Total) 0.9 0.2-1.3 [facility]2016-12-08 02:38:00 Test Item Value Reference Range Interpretation Comments Alk Phos (test code = Alk Phos) 34 39-136 [facility]2016-12-08 02:38:00 Test Item Value Reference Range Interpretation Comments Glucose Lvl (test code = Glucose Lvl) 63 70-99 [facility]2016-12-08 02:38:00 Test Item Value Reference Range Interpretation Comments BUN (test code = BUN) 14 7-22 [place] 802146-12-08 02:38:00 Test Item Value Reference Range Interpretation Comments AGAP (test code = AGAP) 17.4 10.0-20.0 [facility]2016-12-08 02:38:00 Test Item Value Reference Range Interpretation Comments B/C Ratio (test code = B/C Ratio) 17 6-25 [place] 802146-12-08 02:38:00 Test Item Value Reference Range Interpretation Comments Globulin (test code = Globulin) 3.2 2.7-4.2 [place] 802146-12-08 02:38:00 Test Item Value Reference Range Interpretation Comments A/G Ratio (test code = A/G Ratio) 1.4 0.7-1.6 [facility] CenterLxfcfotRPNSZSRDUV2553-57-67 02:38:00 Test Item Value Reference Range Interpretation Comments Lymphocytes # (test code = Lymphocytes 1.7 1.0-5.5 #) [facility] CenterCfubwiaSRXFBXBDPU4982-73-16 02:38:00 Test Item Value Reference Range Interpretation Comments Eosinophils (test code = 1.0 See_Comment [A utomated message] The Eosinophils) system which nerated this result tra nsmitted reference range : <=4.0. The reference r annemarie was not used to int erpret this result as normal/abnormal . [facility] CenterIvticgtFILFPCVUSP3762-75-64 02:38:00 Test Item Value Reference Range Interpretation Comments Basophils (test code = 0.4 See_Comment [Aut omated message] The Basophils) system which ge nerated this result tra nsmitted reference range : <=1.0. The reference r annemarie was not used to int erpret this result as normal/abnormal . [facility] CenterGgwbubcFXSOZKUCHV0254-47-03 02:38:00 Test Item Value Reference Range Interpretation Comments Segs-Bands # (test code = Segs-Bands #) 4.2 1.5-8.1 [facility] CenterVltajxwIMDEHJKRAU0977-74-75 02:38:00 Test Item Value Reference Range Interpretation Comments Monocytes (test code = Monocytes) 9.2 2.0-12.0 [facility] CenterRfavrjaKOLYVXSVWN5648-18-52 02:38:00 Test Item Value Reference Range Interpretation Comments Monocytes # (test code 0.6 See_Comment [Aut omated message] The = Monocytes #) system which generated this result tra nsmitted reference range : <=0.8. The reference r annemarie was not used to int erpret this result as normal/abnormal . [facility] CenterUwswzwiPFFUVMPTCF3579-43-01 02:38:00 Test Item Value Reference Range Interpretation Comments Eosinophils # (test code 0.1 See_Comment [A utomated message] The = Eosinophils #) system whic h generated this result tra nsmitted reference range : <=0.5. The reference r annemarie was not used to int erpret this result as normal/abnormal . [facility] CenterDevwnuaDSIXBOPDYB5786-19-27 02:38:00 Test Item Value Reference Range Interpretation Comments Lymphocytes (test code = Lymphocytes) 26.3 20.0-40.0 [facility] CenterKpeaibsZLOXYAGOLB6718-27-26 02:38:00 Test Item Value Reference Range Interpretation Comments Segs (test code = Segs) 63.1 45.0-75.0 [facility] CenterHalikhyMNQVENNGBW1244-14-59 02:38:00 Test Item Value Reference Range Interpretation Comments WBC (test code = WBC) 6.6 3.7-10.4 [facility] CenterUnvhbvySJSCWLIWBJ8789-67-47 02:38:00 Test Item Value Reference Range Interpretation Comments Hct (test code = Hct) 42.9 42.0-54.0 [facility] CenterSujjiknJSDPDKMCAB5931-95-87 02:38:00 Test Item Value Reference Range Interpretation Comments RBC (test code = RBC) 4.86 4.70-6.10 [facility] CenterPphmdsnCBEHXGGEHV4041-55-08 02:38:00 Test Item Value Reference Range Interpretation Comments Hgb (test code = Hgb) 14.4 14.0-18.0 [facility] CenterKshrvyqQBDESUJAWH9629-65-01 02:38:00 Test Item Value Reference Range Interpretation Comments MCV (test code = MCV) 88.3 80.0-94.0 [facility] LancasterYtstariDCWJJQPWJQ7414-46-76 02:38:00 Test Item Value Reference Range Interpretation Comments MCH (test code = MCH) 29.6 pg 27.0-31.0 [facility] LancasterTzculjuYFDPWFYLNI9568-24-60 02:38:00 Test Item Value Reference Range Interpretation Comments MCHC (test code = MCHC) 33.6 32.0-36.0 [facility] LancasterLirhzicVMXOYIKFEJ5899-83-50 02:38:00 Test Item Value Reference Range Interpretation Comments MPV (test code = MPV) 9.4 7.4-10.4 [facility] LancasterZynyceuHVKMTQGVMB5379-70-37 02:38:00 Test Item Value Reference Range Interpretation Comments RDW (test code = RDW) 13.4 11.5-14.5 [facility] LancasterHnegamdCBVYFXBVTA2520-49-74 02:38:00 Test Item Value Reference Range Interpretation Comments Platelet (test code = Platelet) 145 133-450 [facility] LancasterVcgdtidSJBLNHPHMR0799-03-50 02:38:00 Test Item Value Reference Range Interpretation Comments Salicylate Lvl (test no gt See_Comment [Autom ated message] The code = Salicylate Lvl) syste m which generated this result tra nsmitted reference range : <=30.0. The reference r annemarie was not used to int erpret this result as normal/abnormal . [facility] LancasterQogprqiLCVLPHDCVZ7361-96-97 02:38:00 Test Item Value Reference Range Interpretation Comments Acetaminoph Lvl (test code (04/06/16 8:38 PM) 10-20 = Acetaminoph Lvl) [facility]annVIR[facility] - [id number] 02:38:00 Test Item Value Reference Range Interpretation Comments Influ B (test code = Negative (04/06/16 8:38 Influ B) PM) [facility] HermannVIRAL - [id number] 02:38:00 Test Item Value Reference Range Interpretation Comments Influ A (test code = Negative (04/06/16 8:38 Influ A) PM) [facility] LancasterannCARDIAC EFDPCHQ9018-54-71 02:38:00 Test Item Value Reference Range Interpretation Comments Total CK (test code = Total CK) 598 12-191 [facility]2016-12-08 02:38:00 Test Item Value Reference Range Interpretation Comments eGFR (test code = eGFR) 121 [facility]2016-12-08 02:38:00 Test Item Value Reference Range Interpretation Comments Calcium Lvl (test code = Calcium Lvl) 9.2 8.5-10.5 [facility]2016-12-08 02:38:00 Test Item Value Reference Range Interpretation Comments Total Protein (test code = Total 7.6 6.4-8.4 Protein) [facility]2016-12-08 02:38:00 Test Item Value Reference Range Interpretation Comments CO2 (test code = CO2) 22 24-32 [facility]2016-12-08 02:38:00 Test Item Value Reference Range Interpretation Comments AST (test code = AST) 43 See_Comment [Auto mated message] The system which ge nerated this result transmit abdelrahman reference range : <=37. The reference range was not used to interpr et this result as gurpreet l/abnormal. [facility]2016-12-08 02:38:00 Test Item Value Reference Range Interpretation Comments Albumin Lvl (test code = Albumin Lvl) 4.4 3.5-5.0 [facility]2016-12-08 02:38:00 Test Item Value Reference Range Interpretation Comments ALT (test code = ALT) 22 See_Comment [Auto mated message] The system which ge nerated this result transmit abdelrahman reference range : <=65. The reference range was not used to interpr et this result as gurpreet l/abnormal. [facility]2016-12-08 02:38:00 Test Item Value Reference Range Interpretation Comments Chloride Lvl (test code = Chloride Lvl) 101 95-109 [facility]2016-12-08 02:38:00 Test Item Value Reference Range Interpretation Comments Creatinine Lvl (test code = Creatinine 0.81 0.50-1.40 Lvl) [facility]2016-12-08 02:38:00 Test Item Value Reference Range Interpretation Comments Sodium Lvl (test code = Sodium Lvl) 136 135-145 [facility]2016-12-08 02:38:00 Test Item Value Reference Range Interpretation Comments Potassium Lvl (test code = Potassium 4.4 3.5-5.1 Lvl) [facility]2016-12-08 02:38:00 Test Item Value Reference Range Interpretation Comments Bili Total (test code = Bili Total) 0.9 0.2-1.3 [facility]2016-12-08 02:38:00 Test Item Value Reference Range Interpretation Comments Alk Phos (test code = Alk Phos) 34 39-136 [facility]2016-12-08 02:38:00 Test Item Value Reference Range Interpretation Comments Glucose Lvl (test code = Glucose Lvl) 63 70-99 [facility]2016-12-08 02:38:00 Test Item Value Reference Range Interpretation Comments BUN (test code = BUN) 14 7-22 [facility]2016-12-08 02:38:00 Test Item Value Reference Range Interpretation Comments AGAP (test code = AGAP) 17.4 10.0-20.0 [facility]2016-12-08 02:38:00 Test Item Value Reference Range Interpretation Comments B/C Ratio (test code = B/C Ratio) 17 6-25 [place] 802146-12-08 02:38:00 Test Item Value Reference Range Interpretation Comments Globulin (test code = Globulin) 3.2 2.7-4.2 [facility]2016-12-08 02:38:00 Test Item Value Reference Range Interpretation Comments A/G Ratio (test code = A/G Ratio) 1.4 0.7-1.6 [facility] CenterFavcdddRHFOULBBKG8525-98-04 02:38:00 Test Item Value Reference Range Interpretation Comments Lymphocytes # (test code = Lymphocytes 1.7 1.0-5.5 #) [facility] CenterRwfgylvJJTKJHZFLF5755-86-22 02:38:00 Test Item Value Reference Range Interpretation Comments Eosinophils (test code = 1.0 See_Comment [A utomated message] The Eosinophils) system which ge nerated this result tra nsmitted reference range : <=4.0. The reference r annemarie was not used to int erpret this result as normal/abnormal . [facility] CenterObhhyheLFUNRKQMXM8958-58-94 02:38:00 Test Item Value Reference Range Interpretation Comments Basophils (test code = 0.4 See_Comment [Aut omated message] The Basophils) system which ge nerated this result tra nsmitted reference range : <=1.0. The reference r annemarie was not used to int erpret this result as normal/abnormal . [facility] CenterIxdtazrRBAQLZDISD4247-03-08 02:38:00 Test Item Value Reference Range Interpretation Comments Segs-Bands # (test code = Segs-Bands #) 4.2 1.5-8.1 [facility] CenterTwhjbeiJEAQNCBQNE1440-90-87 02:38:00 Test Item Value Reference Range Interpretation Comments Monocytes (test code = Monocytes) 9.2 2.0-12.0 [facility] CenterJeqtmitAEQLMOQHYD7627-08-45 02:38:00 Test Item Value Reference Range Interpretation Comments Monocytes # (test code 0.6 See_Comment [Aut omated message] The = Monocytes #) system which generated this result tra nsmitted reference range : <=0.8. The reference r annemarie was not used to int erpret this result as normal/abnormal . [facility] CenterJaxnkroRFEGZAYIIV4706-94-30 02:38:00 Test Item Value Reference Range Interpretation Comments Eosinophils # (test code 0.1 See_Comment [A utomated message] The = Eosinophils #) system whic h generated this result tra nsmitted reference range : <=0.5. The reference r annemarie was not used to int erpret this result as normal/abnormal . [facility] CenterJivmqdyNMYKEKFMKF5755-64-25 02:38:00 Test Item Value Reference Range Interpretation Comments Lymphocytes (test code = Lymphocytes) 26.3 20.0-40.0 [facility] CenterIrezcfmXVXMLCGSDO8954-35-52 02:38:00 Test Item Value Reference Range Interpretation Comments Segs (test code = Segs) 63.1 45.0-75.0 [facility] CenterZbrehzaVFHZDZGZMD9750-49-93 02:38:00 Test Item Value Reference Range Interpretation Comments WBC (test code = WBC) 6.6 3.7-10.4 [facility] CenterChkzynhFCNZJHVZQP3977-31-23 02:38:00 Test Item Value Reference Range Interpretation Comments Hct (test code = Hct) 42.9 42.0-54.0 [facility] CenterPnxxedrGDNJDSXCVC1874-28-19 02:38:00 Test Item Value Reference Range Interpretation Comments RBC (test code = RBC) 4.86 4.70-6.10 [facility] CenterEikzxspGHODMLIOWD9146-06-93 02:38:00 Test Item Value Reference Range Interpretation Comments Hgb (test code = Hgb) 14.4 14.0-18.0 [facility] CenterTvpfmvqCQQQYJZTUE4226-65-55 02:38:00 Test Item Value Reference Range Interpretation Comments MCV (test code = MCV) 88.3 80.0-94.0 [facility] CenterSzolrglCNHFMERXCZ0026-34-10 02:38:00 Test Item Value Reference Range Interpretation Comments MCH (test code = MCH) 29.6 pg 27.0-31.0 [facility] CenterJvsuqhnEWTREGVJYT3049-16-92 02:38:00 Test Item Value Reference Range Interpretation Comments MCHC (test code = MCHC) 33.6 32.0-36.0 [facility] CenterInuvmmuSKTNOZEEDZ1214-41-11 02:38:00 Test Item Value Reference Range Interpretation Comments MPV (test code = MPV) 9.4 7.4-10.4 [facility] CenterRiuktwtEZBNJFYZEL0504-97-34 02:38:00 Test Item Value Reference Range Interpretation Comments RDW (test code = RDW) 13.4 11.5-14.5 [facility] CenterGpmkekuFMZNXQLJQE4319-57-93 02:38:00 Test Item Value Reference Range Interpretation Comments Platelet (test code = Platelet) 145 133-450 [place] 66578016-12-08 02:38:00 Test Item Value Reference Range Interpretation Comments Salicylate Lvl (test no gt See_Comment [Autom ated message] The code = Salicylate Lvl) syste m which generated this result tra nsmitted reference range : <=30.0. The reference r annemarie was not used to int erpret this result as normal/abnormal . [facility] CenterHclpugoZVMBUTZEGH9342-99-86 02:38:00 Test Item Value Reference Range Interpretation Comments Acetaminoph Lvl (test code (04/06/16 8:38 PM) 10-20 = Acetaminoph Lvl) [facility] [id number] 02:38:00 Test Item Value Reference Range Interpretation Comments Influ B (test code = Negative (04/06/16 8:38 Influ B) PM) [facility] - [id number] 02:38:00 Test Item Value Reference Range Interpretation Comments Influ A (test code = Negative (04/06/16 8:38 Influ A) PM) [facility]bergCARDIAC IJWHEWI6111-23-77 02:38:00 Test Item Value Reference Range Interpretation Comments Total CK (test code = Total CK) 598 12-191 [facility]2016-12-08 02:38:00 Test Item Value Reference Range Interpretation Comments eGFR (test code = eGFR) 121 [facility]2016-12-08 02:38:00 Test Item Value Reference Range Interpretation Comments Calcium Lvl (test code = Calcium Lvl) 9.2 8.5-10.5 [facility]2016-12-08 02:38:00 Test Item Value Reference Range Interpretation Comments Total Protein (test code = Total 7.6 6.4-8.4 Protein) [facility]2016-12-08 02:38:00 Test Item Value Reference Range Interpretation Comments CO2 (test code = CO2) 22 24-32 [facility]2016-12-08 02:38:00 Test Item Value Reference Range Interpretation Comments AST (test code = AST) 43 See_Comment [Auto mated message] The system which ge nerated this result transmit abdelrahman reference range : <=37. The reference range was not used to interpr et this result as gurpreet l/abnormal. [facility]2016-12-08 02:38:00 Test Item Value Reference Range Interpretation Comments Albumin Lvl (test code = Albumin Lvl) 4.4 3.5-5.0 [facility]2016-12-08 02:38:00 Test Item Value Reference Range Interpretation Comments ALT (test code = ALT) 22 See_Comment [Auto mated message] The system which ge nerated this result transmit abdelrahman reference range : <=65. The reference range was not used to interpr et this result as gurpreet l/abnormal. [facility]2016-12-08 02:38:00 Test Item Value Reference Range Interpretation Comments Chloride Lvl (test code = Chloride Lvl) 101 95-109 [facility]2016-12-08 02:38:00 Test Item Value Reference Range Interpretation Comments Creatinine Lvl (test code = Creatinine 0.81 0.50-1.40 Lvl) [facility]2016-12-08 02:38:00 Test Item Value Reference Range Interpretation Comments Sodium Lvl (test code = Sodium Lvl) 136 135-145 [facility]2016-12-08 02:38:00 Test Item Value Reference Range Interpretation Comments Potassium Lvl (test code = Potassium 4.4 3.5-5.1 Lvl) [facility]2016-12-08 02:38:00 Test Item Value Reference Range Interpretation Comments Bili Total (test code = Bili Total) 0.9 0.2-1.3 [facility]2016-12-08 02:38:00 Test Item Value Reference Range Interpretation Comments Alk Phos (test code = Alk Phos) 34 39-136 [facility]2016-12-08 02:38:00 Test Item Value Reference Range Interpretation Comments Glucose Lvl (test code = Glucose Lvl) 63 70-99 [facility]2016-12-08 02:38:00 Test Item Value Reference Range Interpretation Comments BUN (test code = BUN) 14 7-22 [facility]2016-12-08 02:38:00 Test Item Value Reference Range Interpretation Comments AGAP (test code = AGAP) 17.4 10.0-20.0 [facility]2016-12-08 02:38:00 Test Item Value Reference Range Interpretation Comments B/C Ratio (test code = B/C Ratio) 17 6-25 [facility]2016-12-08 02:38:00 Test Item Value Reference Range Interpretation Comments Globulin (test code = Globulin) 3.2 2.7-4.2 [facility]2016-12-08 02:38:00 Test Item Value Reference Range Interpretation Comments A/G Ratio (test code = A/G Ratio) 1.4 0.7-1.6 [facility]ququzsGZWUIMEPOD6674-93-29 02:38:00 Test Item Value Reference Range Interpretation Comments Lymphocytes # (test code = Lymphocytes 1.7 1.0-5.5 #) [facility]NfmuqlwQFTMQXNZTU[facility] 02:38:00 Test Item Value Reference Range Interpretation Comments Eosinophils (test code = 1.0 See_Comment [A utomated message] The Eosinophils) system which ge nerated this result tra nsmitted reference range : <=4.0. The reference r annemarie was not used to int erpret this result as normal/abnormal . [facility] CenterSftfvemUQTXSTHCVI7309-03-71 02:38:00 Test Item Value Reference Range Interpretation Comments Basophils (test code = 0.4 See_Comment [Aut omated message] The Basophils) system which ge nerated this result tra nsmitted reference range : <=1.0. The reference r annemarie was not used to int erpret this result as normal/abnormal . [facility] CenterBegtzvoRAAZREZUBR0419-39-21 02:38:00 Test Item Value Reference Range Interpretation Comments Segs-Bands # (test code = Segs-Bands #) 4.2 1.5-8.1 [facility] CenterHiymcbcVFYKELARCD1187-38-11 02:38:00 Test Item Value Reference Range Interpretation Comments Monocytes (test code = Monocytes) 9.2 2.0-12.0 [facility] CenterVlaqbhfWABHMSBUAC2194-66-13 02:38:00 Test Item Value Reference Range Interpretation Comments Monocytes # (test code 0.6 See_Comment [Aut omated message] The = Monocytes #) system which generated this result tra nsmitted reference range : <=0.8. The reference r annemarie was not used to int erpret this result as normal/abnormal . [facility] CenterRfdvcxoKACIMPWYGD0205-88-15 02:38:00 Test Item Value Reference Range Interpretation Comments Eosinophils # (test code 0.1 See_Comment [A utomated message] The = Eosinophils #) system whic h generated this result tra nsmitted reference range : <=0.5. The reference r annemarie was not used to int erpret this result as normal/abnormal . [facility] CenterZdlwswyNDNASIKJTR9747-72-37 02:38:00 Test Item Value Reference Range Interpretation Comments Lymphocytes (test code = Lymphocytes) 26.3 20.0-40.0 [facility] CenterIhyknfmDAGZXIEPIG0601-71-40 02:38:00 Test Item Value Reference Range Interpretation Comments Segs (test code = Segs) 63.1 45.0-75.0 [facility] CenterTeryschVXSZFOWUSG0403-46-81 02:38:00 Test Item Value Reference Range Interpretation Comments WBC (test code = WBC) 6.6 3.7-10.4 [facility] CenterRqaxuinGQFPZGLZHI4943-04-84 02:38:00 Test Item Value Reference Range Interpretation Comments Hct (test code = Hct) 42.9 42.0-54.0 [facility]cyojknKJFKMZGJRJ1716-[facility]-17 02:38:00 Test Item Value Reference Range Interpretation Comments RBC (test code = RBC) 4.86 4.70-6.10 [facility] HealthAznvgwdIRKCVTLSXV6917-46-24 02:38:00 Test Item Value Reference Range Interpretation Comments Hgb (test code = Hgb) 14.4 14.0-18.0 [facility] HealthPnuoctdJQGIPQQQOO7569-07-70 02:38:00 Test Item Value Reference Range Interpretation Comments MCV (test code = MCV) 88.3 80.0-94.0 [facility] HealthCkdalgaHRGAEQONSH6282-06-65 02:38:00 Test Item Value Reference Range Interpretation Comments MCH (test code = MCH) 29.6 pg 27.0-31.0 [facility] HealthCkpirvvBGVJBWBRHZ7921-58-76 02:38:00 Test Item Value Reference Range Interpretation Comments MCHC (test code = MCHC) 33.6 32.0-36.0 [facility] HealthBblhkxlMBWXACOQBO0335-09-41 02:38:00 Test Item Value Reference Range Interpretation Comments MPV (test code = MPV) 9.4 7.4-10.4 [facility] HealthXaosregGBPCUQTQNL7890-08-29 02:38:00 Test Item Value Reference Range Interpretation Comments RDW (test code = RDW) 13.4 11.5-14.5 [facility] HealthXtyzuynAGADOEPGNQ6856-02-28 02:38:00 Test Item Value Reference Range Interpretation Comments Platelet (test code = Platelet) 145 133-450 [facility]QqmauskZRTBLXGQFI2479-85-98 02:38:00 Test Item Value Reference Range Interpretation Comments Salicylate Lvl (test no gt See_Comment [Autom ated message] The code = Salicylate Lvl) syste m which generated this result tra nsmitted reference range : <=30.0. The reference r annemarie was not used to int erpret this result as normal/abnormal . [facility] CenterVzdrlzpQPIGPYYVEI6040-92-61 02:38:00 Test Item Value Reference Range Interpretation Comments Acetaminoph Lvl (test code (04/06/16 8:38 PM) 10-20 = Acetaminoph Lvl) [facility] WELKNQNW4801-[facility]-39 02:38:00 Test Item Value Reference Range Interpretation Comments Influ B (test code = Negative (04/06/16 8:38 Influ B) PM) [facility] KCBOVJKU4641-26-78 02:38:00 Test Item Value Reference Range Interpretation Comments Influ A (test code = Negative (04/06/16 8:38 Influ A) PM) [facility] CenterDlhimeeGRQFJURGH6318-29-77 06:42:00 Test Item Value Reference Range Interpretation Comments B/C Ratio (test code = B/C Ratio) 8 6-25 N [facility] CenterGrrwcimGFOUIFNIT5530-21-15 06:42:00 Test Item Value Reference Range Interpretation Comments Globulin (test code = Globulin) 2.5 2.0-4.0 N [facility] CenterUjtyskuFDFWPPKRL6893-66-85 06:42:00 Test Item Value Reference Range Interpretation Comments AGAP (test code = AGAP) 16.9 10.0-20.0 N [facility] CenterEszthbtJDWFXDYVU2094-66-49 06:42:00 Test Item Value Reference Range Interpretation Comments A/G Ratio (test code = A/G Ratio) 1.6 0.7-1.6 N [facility] CenterUrdhropJYYANSVCS2260-66-43 06:42:00 Test Item Value Reference Range Interpretation Comments eGFR (test code = eGFR) 105 [facility] CenterQrsqckkQLNPLTXYH2788-12-84 06:42:00 Test Item Value Reference Range Interpretation Comments Glucose Lvl (test code = Glucose Lvl) 109 70-99 H [facility] CenterBbefetsUFEJMRHBJ1622-52-21 06:42:00 Test Item Value Reference Range Interpretation Comments ALT (test code = ALT) 26 See_Comment N [Auto mated message] The system which ge nerated this result transmit abdelrahman reference range : <=65. The reference range was not used to interpr et this result as gurpreet l/abnormal. [facility] CenterEcsdisfSOYPQXHYE3733-68-91 06:42:00 Test Item Value Reference Range Interpretation Comments Albumin Lvl (test code = Albumin Lvl) 3.9 3.5-5.0 N [facility] CenterRtkwdceZPBHXBBQI4837-78-70 06:42:00 Test Item Value Reference Range Interpretation Comments Alk Phos (test code = Alk Phos) 47 39-136 N [facility] CenterQuetexeQUQCVQPJG6407-77-22 06:42:00 Test Item Value Reference Range Interpretation Comments Total Protein (test code = Total 6.4 6.4-8.4 N Protein) [facility] CenterKonxnueVBQZGCNNQ2708-11-16 06:42:00 Test Item Value Reference Range Interpretation Comments AST (test code = AST) 31 See_Comment N [Auto mated message] The system which ge nerated this result transmit abdelrahman reference range : <=37. The reference range was not used to interpr et this result as gurpreet l/abnormal. [facility] CenterWfhaepuQPQJGHXKZ7657-12-77 06:42:00 Test Item Value Reference Range Interpretation Comments Calcium Lvl (test code = Calcium Lvl) 9.0 8.5-10.5 N [facility] CenterAnywwlnDNEJABSSA7512-92-25 06:42:00 Test Item Value Reference Range Interpretation Comments Bili Total (test code = Bili Total) 0.4 0.2-1.3 N [facility] CenterVdrbwzhKITLRDWKL5234-60-61 06:42:00 Test Item Value Reference Range Interpretation Comments Chloride Lvl (test code = Chloride Lvl) 104 95-109 N [facility] CenterQrwwwxgQDKUYMTCB8871-89-53 06:42:00 Test Item Value Reference Range Interpretation Comments CO2 (test code = CO2) 24 24-32 N [facility] CenterDslrbsyMPZXRBGLN4070-36-36 06:42:00 Test Item Value Reference Range Interpretation Comments Sodium Lvl (test code = Sodium Lvl) 141 135-145 N [facility] CenterTxmseccHFYCGNWOD4894-49-23 06:42:00 Test Item Value Reference Range Interpretation Comments Potassium Lvl (test code = Potassium 3.9 3.5-5.1 N Lvl) [facility] CenterGxghpamQHSOOHSMM3507-45-39 06:42:00 Test Item Value Reference Range Interpretation Comments BUN (test code = BUN) 8 7-22 N [facility] CenterQiclpfrTJOSRGTTC7982-14-97 06:42:00 Test Item Value Reference Range Interpretation Comments Creatinine Lvl (test code = Creatinine 1.0 0.5-1.4 N Lvl) [facility] CenterJkohdugCZBRZDQHEK9332-76-31 06:42:00 Test Item Value Reference Range Interpretation Comments MCH (test code = MCH) 30.2 pg 27.0-31.0 N [facility] CenterBrscwapBIBQGYRNGD5664-90-83 06:42:00 Test Item Value Reference Range Interpretation Comments Platelet (test code = Platelet) 134 133-450 N [facility] CenterJiwogbxVQNQTTUWRE6883-28-61 06:42:00 Test Item Value Reference Range Interpretation Comments MPV (test code = MPV) 10.1 7.4-10.4 N [facility] CenterDzjlrceNZXFNOYZLS1041-30-44 06:42:00 Test Item Value Reference Range Interpretation Comments RDW (test code = RDW) 13.4 11.5-14.5 N [facility] CenterTdipfyqDERCNMPEQF0485-57-45 06:42:00 Test Item Value Reference Range Interpretation Comments Hct (test code = Hct) 39.4 42.0-54.0 L [facility] CenterEjoqrskOGWXLZGGSJ0585-77-47 06:42:00 Test Item Value Reference Range Interpretation Comments MCV (test code = MCV) 89.5 80.0-94.0 N [facility] CenterLjxcihmACSEYIPJFU9567-00-64 06:42:00 Test Item Value Reference Range Interpretation Comments Hgb (test code = Hgb) 13.3 14.0-18.0 L [facility] CenterNpggslpLNLQEOPWZO2111-40-86 06:42:00 Test Item Value Reference Range Interpretation Comments MCHC (test code = MCHC) 33.7 32.0-36.0 N [facility] CenterIjtxqfdWMDZCMNVCI6544-99-15 06:42:00 Test Item Value Reference Range Interpretation Comments WBC (test code = WBC) 12.5 3.7-10.4 H [facility] CenterOgbyhwiSAYPCXFDXX7962-39-31 06:42:00 Test Item Value Reference Range Interpretation Comments RBC (test code = RBC) 4.40 4.70-6.10 L [facility] CenterNieugdpKIOAUNDMLS4450-17-75 06:42:00 Test Item Value Reference Range Interpretation Comments Lymphocytes (test code = Lymphocytes) 9.4 20.0-40.0 L [facility] CenterDsqythuPWFYURHDWP2013-34-25 06:42:00 Test Item Value Reference Range Interpretation Comments Monocytes (test code = Monocytes) 10.8 2.0-12.0 N [facility] CenterWuoycbvZHMFZYZFXR2798-01-85 06:42:00 Test Item Value Reference Range Interpretation Comments Segs (test code = Segs) 79.6 45.0-75.0 H [facility] CenterFnwmwfbXPSIPFOGZG4548-12-59 06:42:00 Test Item Value Reference Range Interpretation Comments Eosinophils (test code = 0.1 See_Comment N [A utomated message] The Eosinophils) system which ge nerated this result tra nsmitted reference range : <=4.0. The reference r annemarie was not used to int erpret this result as normal/abnormal . [facility] CenterHxuwxtzQMFJNCAMUS7008-42-78 06:42:00 Test Item Value Reference Range Interpretation Comments Basophils (test code = 0.1 See_Comment N [Aut omated message] The Basophils) system which ge nerated this result tra nsmitted reference range : <=1.0. The reference r annemarie was not used to int erpret this result as normal/abnormal . [facility] CenterSeggblfRPUGXWGZFF3999-17-32 06:42:00 Test Item Value Reference Range Interpretation Comments Segs-Bands # (test code = Segs-Bands #) 9.9 1.5-8.1 H [facility] CenterUdagtmaXRBSWJBZPO0640-71-64 06:42:00 Test Item Value Reference Range Interpretation Comments Lymphocytes # (test code = Lymphocytes 1.2 1.0-5.5 N #) [facility] CenterEwnoiwcMICTTDXKMW3908-87-41 06:42:00 Test Item Value Reference Range Interpretation Comments Monocytes # (test code 1.3 See_Comment H [Aut omated message] The = Monocytes #) system which generated this result tra nsmitted reference range : <=0.8. The reference r annemarie was not used to int erpret this result as normal/abnormal . [facility] CenterHsaxhjuZRAQBLLPB2105-27-85 06:42:00 Test Item Value Reference Range Interpretation Comments B/C Ratio (test code = B/C Ratio) 8 6-25 N [facility] CenterNhytfjfSGDDCSCEF1126-95-17 06:42:00 Test Item Value Reference Range Interpretation Comments Globulin (test code = Globulin) 2.5 2.0-4.0 N [facility] CenterUqbjgelVYXVBEQAA9715-15-95 06:42:00 Test Item Value Reference Range Interpretation Comments AGAP (test code = AGAP) 16.9 10.0-20.0 N [facility] CenterHubbntfWMOXHAQHI4880-24-13 06:42:00 Test Item Value Reference Range Interpretation Comments A/G Ratio (test code = A/G Ratio) 1.6 0.7-1.6 N [facility] CenterKudkidsZHXYSVNIP0391-93-47 06:42:00 Test Item Value Reference Range Interpretation Comments eGFR (test code = eGFR) 105 [facility] CenterKsftnakNKOQFFJRQ7524-07-76 06:42:00 Test Item Value Reference Range Interpretation Comments Glucose Lvl (test code = Glucose Lvl) 109 70-99 H [facility] CenterKapukggPCKBPLMMC2777-72-99 06:42:00 Test Item Value Reference Range Interpretation Comments ALT (test code = ALT) 26 See_Comment N [Auto mated message] The system which ge nerated this result transmit abdelrahman reference range : <=65. The reference range was not used to interpr et this result as gurpreet l/abnormal. [facility] CenterLshlgalYIOOJGJBF5531-03-56 06:42:00 Test Item Value Reference Range Interpretation Comments Albumin Lvl (test code = Albumin Lvl) 3.9 3.5-5.0 N [facility] CenterHvafitbXZEEKGGVK0853-26-58 06:42:00 Test Item Value Reference Range Interpretation Comments Alk Phos (test code = Alk Phos) 47 39-136 N [facility] CenterUhgogtoKIUQYLSMD3783-77-01 06:42:00 Test Item Value Reference Range Interpretation Comments Total Protein (test code = Total 6.4 6.4-8.4 N Protein) [facility] CenterXscswpdQVQPZHJUM0925-32-98 06:42:00 Test Item Value Reference Range Interpretation Comments AST (test code = AST) 31 See_Comment N [Auto mated message] The system which ge nerated this result transmit abdelrahman reference range : <=37. The reference range was not used to interpr et this result as gurpreet l/abnormal. [facility] CenterLugomxqKFSQAUXES8340-39-91 06:42:00 Test Item Value Reference Range Interpretation Comments Calcium Lvl (test code = Calcium Lvl) 9.0 8.5-10.5 N [facility] CenterKiugrteKCXEPVSHJ3011-74-76 06:42:00 Test Item Value Reference Range Interpretation Comments Bili Total (test code = Bili Total) 0.4 0.2-1.3 N [facility] CenterRovgxwsMXIBNZDIH3262-84-59 06:42:00 Test Item Value Reference Range Interpretation Comments Chloride Lvl (test code = Chloride Lvl) 104 95-109 N [facility] CenterMuvaabpPMJNKHYXA4666-74-36 06:42:00 Test Item Value Reference Range Interpretation Comments CO2 (test code = CO2) 24 24-32 N [facility] CenterXhsehbeLUPKMEMRB2685-73-09 06:42:00 Test Item Value Reference Range Interpretation Comments Sodium Lvl (test code = Sodium Lvl) 141 135-145 N [facility] CenterAydhbuqKBADMKCVX7632-87-61 06:42:00 Test Item Value Reference Range Interpretation Comments Potassium Lvl (test code = Potassium 3.9 3.5-5.1 N Lvl) [facility] CenterNegqfpaMSZFJSQWI8877-10-90 06:42:00 Test Item Value Reference Range Interpretation Comments BUN (test code = BUN) 8 7-22 N [facility] CenterQfykigrHFWISEKYP6045-77-19 06:42:00 Test Item Value Reference Range Interpretation Comments Creatinine Lvl (test code = Creatinine 1.0 0.5-1.4 N Lvl) [facility] CenterQjwhpeyTTDPVMPMEV2901-62-47 06:42:00 Test Item Value Reference Range Interpretation Comments MCH (test code = MCH) 30.2 pg 27.0-31.0 N [facility] CenterZblftwhNSZMWJEJON2606-51-80 06:42:00 Test Item Value Reference Range Interpretation Comments Platelet (test code = Platelet) 134 133-450 N [facility] CenterTauomvjPHJJGEDHOW2443-48-98 06:42:00 Test Item Value Reference Range Interpretation Comments MPV (test code = MPV) 10.1 7.4-10.4 N [facility] CenterJwuwzphEQYTDFSDTJ7081-13-12 06:42:00 Test Item Value Reference Range Interpretation Comments RDW (test code = RDW) 13.4 11.5-14.5 N [facility] CenterZdpajleAWNJVYFRLX6422-43-85 06:42:00 Test Item Value Reference Range Interpretation Comments Hct (test code = Hct) 39.4 42.0-54.0 L [facility] CenterBxgytyuHFGIVYNVGF7623-61-46 06:42:00 Test Item Value Reference Range Interpretation Comments MCV (test code = MCV) 89.5 80.0-94.0 N [facility] CenterLqjwggzWLRVYYVHZW6519-96-36 06:42:00 Test Item Value Reference Range Interpretation Comments Hgb (test code = Hgb) 13.3 14.0-18.0 L [facility] CenterLduahlcUAXQXRFQJO1915-45-06 06:42:00 Test Item Value Reference Range Interpretation Comments MCHC (test code = MCHC) 33.7 32.0-36.0 N [facility] CenterQusneukRHTTGAJPOH9233-77-37 06:42:00 Test Item Value Reference Range Interpretation Comments WBC (test code = WBC) 12.5 3.7-10.4 H [facility] CenterTtqqaotUDPVQZBPCL3668-02-59 06:42:00 Test Item Value Reference Range Interpretation Comments RBC (test code = RBC) 4.40 4.70-6.10 L [facility] CenterYiimwusTDMKZUQNMJ5202-41-72 06:42:00 Test Item Value Reference Range Interpretation Comments Lymphocytes (test code = Lymphocytes) 9.4 20.0-40.0 L [facility] CenterYrmhibdRTOJSZLEZP4707-14-96 06:42:00 Test Item Value Reference Range Interpretation Comments Monocytes (test code = Monocytes) 10.8 2.0-12.0 N [facility] CenterOujnxvyMSMHXLMYBT3691-18-14 06:42:00 Test Item Value Reference Range Interpretation Comments Segs (test code = Segs) 79.6 45.0-75.0 H [facility] CenterJslvzhsNXVRPOTRLJ3795-65-09 06:42:00 Test Item Value Reference Range Interpretation Comments Eosinophils (test code = 0.1 See_Comment N [A utomated message] The Eosinophils) system which ge nerated this result tra nsmitted reference range : <=4.0. The reference r annemarie was not used to int erpret this result as normal/abnormal . [facility] CenterNxsfgwdBPPSFZSVTD5235-74-68 06:42:00 Test Item Value Reference Range Interpretation Comments Basophils (test code = 0.1 See_Comment N [Aut omated message] The Basophils) system which ge nerated this result tra nsmitted reference range : <=1.0. The reference r annemarie was not used to int erpret this result as normal/abnormal . [facility] CenterVijcuwpHRZDPJZROT8278-62-01 06:42:00 Test Item Value Reference Range Interpretation Comments Segs-Bands # (test code = Segs-Bands #) 9.9 1.5-8.1 H [facility] CenterEecmxrmSGYTSKVCUG5735-21-30 06:42:00 Test Item Value Reference Range Interpretation Comments Lymphocytes # (test code = Lymphocytes 1.2 1.0-5.5 N #) [facility] CenterJyatiiwYGQAAOGLOP3230-35-48 06:42:00 Test Item Value Reference Range Interpretation Comments Monocytes # (test code 1.3 See_Comment H [Aut omated message] The = Monocytes #) system which generated this result tra nsmitted reference range : <=0.8. The reference r annemarie was not used to int erpret this result as normal/abnormal . [facility] CenterJlzoqfqFDYBZYXBY5647-90-52 06:42:00 Test Item Value Reference Range Interpretation Comments B/C Ratio (test code = B/C Ratio) 8 6-25 N [facility] CenterCprjifzYFAQCHWJP1377-45-03 06:42:00 Test Item Value Reference Range Interpretation Comments Globulin (test code = Globulin) 2.5 2.0-4.0 N [facility] CenterNxtweegFDMXFFCUJ7528-16-95 06:42:00 Test Item Value Reference Range Interpretation Comments AGAP (test code = AGAP) 16.9 10.0-20.0 N [facility] CenterIihzbriBDHVIUVYI4076-35-32 06:42:00 Test Item Value Reference Range Interpretation Comments A/G Ratio (test code = A/G Ratio) 1.6 0.7-1.6 N [facility] CenterNvfubvkTJJFYMZBZ3490-77-87 06:42:00 Test Item Value Reference Range Interpretation Comments eGFR (test code = eGFR) 105 [facility] CenterMeswudrBMKZFXPLJ4019-55-52 06:42:00 Test Item Value Reference Range Interpretation Comments Glucose Lvl (test code = Glucose Lvl) 109 70-99 H [facility] CenterXdyfxglJRXNIZEMV5360-64-22 06:42:00 Test Item Value Reference Range Interpretation Comments ALT (test code = ALT) 26 See_Comment N [Auto mated message] The system which ge nerated this result transmit abdelrahman reference range : <=65. The reference range was not used to interpr et this result as gurpreet l/abnormal. [facility] CenterTrbbyrrQCRBRWNWQ2780-03-81 06:42:00 Test Item Value Reference Range Interpretation Comments Albumin Lvl (test code = Albumin Lvl) 3.9 3.5-5.0 N [facility] CenterYbnopvgKJHFRNMOC7419-22-10 06:42:00 Test Item Value Reference Range Interpretation Comments Alk Phos (test code = Alk Phos) 47 39-136 N [facility] CenterDmagirhEPKLGHCZM6746-69-56 06:42:00 Test Item Value Reference Range Interpretation Comments Total Protein (test code = Total 6.4 6.4-8.4 N Protein) [facility] CenterHigbxgnGMKQUKMOE8326-64-48 06:42:00 Test Item Value Reference Range Interpretation Comments AST (test code = AST) 31 See_Comment N [Auto mated message] The system which ge nerated this result transmit abdelrahman reference range : <=37. The reference range was not used to interpr et this result as gurpreet l/abnormal. [facility] CenterAhyfcpzFSQZPBMZQ2058-79-59 06:42:00 Test Item Value Reference Range Interpretation Comments Calcium Lvl (test code = Calcium Lvl) 9.0 8.5-10.5 N [facility] CenterJuekskzFLBRVASFR6490-33-04 06:42:00 Test Item Value Reference Range Interpretation Comments Bili Total (test code = Bili Total) 0.4 0.2-1.3 N [facility] CenterWbofnivOMKAWDKIB0903-51-60 06:42:00 Test Item Value Reference Range Interpretation Comments Chloride Lvl (test code = Chloride Lvl) 104 95-109 N [facility] CenterPusdwtvFQUWEUNWF2817-17-98 06:42:00 Test Item Value Reference Range Interpretation Comments CO2 (test code = CO2) 24 24-32 N [facility] CenterTklztodSFJHURHAZ9034-75-23 06:42:00 Test Item Value Reference Range Interpretation Comments Sodium Lvl (test code = Sodium Lvl) 141 135-145 N [facility] CenterLvqybhhTWTQBXDUE1319-43-48 06:42:00 Test Item Value Reference Range Interpretation Comments Potassium Lvl (test code = Potassium 3.9 3.5-5.1 N Lvl) [facility]GpybvpuAMDWRKAMO1696-32-42 06:42:00 Test Item Value Reference Range Interpretation Comments BUN (test code = BUN) 8 7-22 N [facility] CenterQkajaaoUTQFSKSZL1820-93-04 06:42:00 Test Item Value Reference Range Interpretation Comments Creatinine Lvl (test code = Creatinine 1.0 0.5-1.4 N Lvl) [facility]GubuemaKHKHUTRKIM9831-53-41 06:42:00 Test Item Value Reference Range Interpretation Comments MCH (test code = MCH) 30.2 pg 27.0-31.0 N [facility] CenterLfzepokTVOMZNQXIM2082-34-18 06:42:00 Test Item Value Reference Range Interpretation Comments Platelet (test code = Platelet) 134 133-450 N [facility] CenterLvphkmhKOQWNXTSVL5649-99-88 06:42:00 Test Item Value Reference Range Interpretation Comments MPV (test code = MPV) 10.1 7.4-10.4 N [facility] CenterUafvlfhHZDBWUZEXJ5880-31-82 06:42:00 Test Item Value Reference Range Interpretation Comments RDW (test code = RDW) 13.4 11.5-14.5 N [facility] CenterMgsnnywJKOZRGPCDF5062-09-60 06:42:00 Test Item Value Reference Range Interpretation Comments Hct (test code = Hct) 39.4 42.0-54.0 L [facility] CenterYywnkkiSMEUXJMARE3494-24-06 06:42:00 Test Item Value Reference Range Interpretation Comments MCV (test code = MCV) 89.5 80.0-94.0 N [facility] CenterZvlgnsrTILZPPBRYB9145-50-38 06:42:00 Test Item Value Reference Range Interpretation Comments Hgb (test code = Hgb) 13.3 14.0-18.0 L [facility] CenterTbbrycoCVWZNLYRKS6640-29-40 06:42:00 Test Item Value Reference Range Interpretation Comments MCHC (test code = MCHC) 33.7 32.0-36.0 N [facility] CenterNjtszpaJJGWJXESZD4105-66-59 06:42:00 Test Item Value Reference Range Interpretation Comments WBC (test code = WBC) 12.5 3.7-10.4 H [facility] CenterSpweynoJNPQWZHCFL4321-19-39 06:42:00 Test Item Value Reference Range Interpretation Comments RBC (test code = RBC) 4.40 4.70-6.10 L [facility] CenterHwkpmxtXXUIMEJUVQ5090-44-65 06:42:00 Test Item Value Reference Range Interpretation Comments Lymphocytes (test code = Lymphocytes) 9.4 20.0-40.0 L [facility] CenterBbnihcnLBXAAZBTEW0577-82-23 06:42:00 Test Item Value Reference Range Interpretation Comments Monocytes (test code = Monocytes) 10.8 2.0-12.0 N [facility] CenterVsoydxaBGMSPPICXC2852-16-53 06:42:00 Test Item Value Reference Range Interpretation Comments Segs (test code = Segs) 79.6 45.0-75.0 H [facility] CenterHmgnnirCQOOARUJWW3849-16-39 06:42:00 Test Item Value Reference Range Interpretation Comments Eosinophils (test code = 0.1 See_Comment N [A utomated message] The Eosinophils) system which ge nerated this result tra nsmitted reference range : <=4.0. The reference r annemarie was not used to int erpret this result as normal/abnormal . [facility] CenterPpwyquqUJHUAOAEMD0592-00-15 06:42:00 Test Item Value Reference Range Interpretation Comments Basophils (test code = 0.1 See_Comment N [Aut omated message] The Basophils) system which ge nerated this result tra nsmitted reference range : <=1.0. The reference r annemarie was not used to int erpret this result as normal/abnormal . [facility] CenterUlbqtfrQOYQWECKNT8862-62-95 06:42:00 Test Item Value Reference Range Interpretation Comments Segs-Bands # (test code = Segs-Bands #) 9.9 1.5-8.1 H [facility] CenterDpfdibmMBOIUKXMTX5137-07-98 06:42:00 Test Item Value Reference Range Interpretation Comments Lymphocytes # (test code = Lymphocytes 1.2 1.0-5.5 N #) [facility] CenterXhzusbcBCGQFHYBTX5047-80-88 06:42:00 Test Item Value Reference Range Interpretation Comments Monocytes # (test code 1.3 See_Comment H [Aut omated message] The = Monocytes #) system which generated this result tra nsmitted reference range : <=0.8. The reference r annemarie was not used to int erpret this result as normal/abnormal . [facility] CenterWpiznkePEYWWPBCT9084-07-18 06:42:00 Test Item Value Reference Range Interpretation Comments B/C Ratio (test code = B/C Ratio) 8 6-25 N [facility] CenterOoqabilOAQGLPMZR0078-86-71 06:42:00 Test Item Value Reference Range Interpretation Comments Globulin (test code = Globulin) 2.5 2.0-4.0 N [facility] CenterMwpqlxsZISHYJBJR6136-48-30 06:42:00 Test Item Value Reference Range Interpretation Comments AGAP (test code = AGAP) 16.9 10.0-20.0 N [facility] CenterXowkigiXIOYWTVCL3497-29-71 06:42:00 Test Item Value Reference Range Interpretation Comments A/G Ratio (test code = A/G Ratio) 1.6 0.7-1.6 N [facility] CenterGxewronKYENQLWNA3207-99-50 06:42:00 Test Item Value Reference Range Interpretation Comments eGFR (test code = eGFR) 105 [facility] CenterGffhageSZBPHDZTC1163-12-30 06:42:00 Test Item Value Reference Range Interpretation Comments Glucose Lvl (test code = Glucose Lvl) 109 70-99 H [facility] CenterBmprcqtWFUTYTWPZ3862-66-34 06:42:00 Test Item Value Reference Range Interpretation Comments ALT (test code = ALT) 26 See_Comment N [Auto mated message] The system which ge nerated this result transmit abdelrahman reference range : <=65. The reference range was not used to interpr et this result as gurpreet l/abnormal. [facility] CenterAjhiwqjQZXVWBRNE2494-00-40 06:42:00 Test Item Value Reference Range Interpretation Comments Albumin Lvl (test code = Albumin Lvl) 3.9 3.5-5.0 N [facility] CenterYjfdsstOVKHACNFD6328-15-07 06:42:00 Test Item Value Reference Range Interpretation Comments Alk Phos (test code = Alk Phos) 47 39-136 N [facility] LancasterFctyfcbKLOLSQCIA8879-95-24 06:42:00 Test Item Value Reference Range Interpretation Comments Total Protein (test code = Total 6.4 6.4-8.4 N Protein) [facility] CenterKiilldfSSGLINVXP6125-10-48 06:42:00 Test Item Value Reference Range Interpretation Comments AST (test code = AST) 31 See_Comment N [Auto mated message] The system which ge nerated this result transmit abdelrahman reference range : <=37. The reference range was not used to interpr et this result as gurpreet l/abnormal. [facility] LancasterCerohzcETEDUJFCG0996-70-79 06:42:00 Test Item Value Reference Range Interpretation Comments Calcium Lvl (test code = Calcium Lvl) 9.0 8.5-10.5 N [facility] CenterWujlqqkBVQHPAQDK1982-06-23 06:42:00 Test Item Value Reference Range Interpretation Comments Bili Total (test code = Bili Total) 0.4 0.2-1.3 N [facility] LancasterXovplhbGQXKZCYZB1630-92-36 06:42:00 Test Item Value Reference Range Interpretation Comments Chloride Lvl (test code = Chloride Lvl) 104 95-109 N [facility] LancasterMptxwcuYXZRGTNWT5273-24-29 06:42:00 Test Item Value Reference Range Interpretation Comments CO2 (test code = CO2) 24 24-32 N [facility] LancasterJjqnvniJQYGKDHDY9374-90-46 06:42:00 Test Item Value Reference Range Interpretation Comments Sodium Lvl (test code = Sodium Lvl) 141 135-145 N [facility] LancasterNrcshszJQLAKERGK1202-28-22 06:42:00 Test Item Value Reference Range Interpretation Comments Potassium Lvl (test code = Potassium 3.9 3.5-5.1 N Lvl) [facility] CenterRcuiodhZFZHMAOFZ7042-82-67 06:42:00 Test Item Value Reference Range Interpretation Comments BUN (test code = BUN) 8 7-22 N [facility] CenterDvummefOMZHPYNUT2287-60-63 06:42:00 Test Item Value Reference Range Interpretation Comments Creatinine Lvl (test code = Creatinine 1.0 0.5-1.4 N Lvl) [facility] CenterSgxlvpkAMUBTAMJBH4590-57-12 06:42:00 Test Item Value Reference Range Interpretation Comments MCH (test code = MCH) 30.2 pg 27.0-31.0 N [facility] CenterWrpkewcITBNAGZOFR2250-40-41 06:42:00 Test Item Value Reference Range Interpretation Comments Platelet (test code = Platelet) 134 133-450 N [facility] CenterFygqeqbPGPYSWWXDX8546-34-56 06:42:00 Test Item Value Reference Range Interpretation Comments MPV (test code = MPV) 10.1 7.4-10.4 N [facility] CenterLlvbxshBQRNSUOMNE1273-38-16 06:42:00 Test Item Value Reference Range Interpretation Comments RDW (test code = RDW) 13.4 11.5-14.5 N [facility] CenterFihwnhvIBSSIMUPBA4894-86-78 06:42:00 Test Item Value Reference Range Interpretation Comments Hct (test code = Hct) 39.4 42.0-54.0 L [facility] CenterYdpgugkOLOJSEIEAM0528-02-19 06:42:00 Test Item Value Reference Range Interpretation Comments MCV (test code = MCV) 89.5 80.0-94.0 N [facility] CenterDrjvrdqBIAABATUEY4965-00-17 06:42:00 Test Item Value Reference Range Interpretation Comments Hgb (test code = Hgb) 13.3 14.0-18.0 L [facility] CenterWdamxnlLFFBHOSZUB1304-00-74 06:42:00 Test Item Value Reference Range Interpretation Comments MCHC (test code = MCHC) 33.7 32.0-36.0 N [facility] CenterWlqxtcuZVRRNBBNRL1134-62-45 06:42:00 Test Item Value Reference Range Interpretation Comments WBC (test code = WBC) 12.5 3.7-10.4 H [facility] CenterZawtbemJEIAVNVZHO4249-48-47 06:42:00 Test Item Value Reference Range Interpretation Comments RBC (test code = RBC) 4.40 4.70-6.10 L [facility] CenterNtcufbyAOIXSTAURA7504-39-67 06:42:00 Test Item Value Reference Range Interpretation Comments Lymphocytes (test code = Lymphocytes) 9.4 20.0-40.0 L [facility] CenterHomqpnbLKTZKDNNYN6418-57-54 06:42:00 Test Item Value Reference Range Interpretation Comments Monocytes (test code = Monocytes) 10.8 2.0-12.0 N [facility] CenterMpljgmiUFVFBELRUR2398-64-46 06:42:00 Test Item Value Reference Range Interpretation Comments Segs (test code = Segs) 79.6 45.0-75.0 H [facility] CenterAfzrxhoSBKWQXKIVS9370-41-89 06:42:00 Test Item Value Reference Range Interpretation Comments Eosinophils (test code = 0.1 See_Comment N [A utomated message] The Eosinophils) system which ge nerated this result tra nsmitted reference range : <=4.0. The reference r annemarie was not used to int erpret this result as normal/abnormal . [facility] CenterXhbyfjbTYPDGYNSKQ2658-00-48 06:42:00 Test Item Value Reference Range Interpretation Comments Basophils (test code = 0.1 See_Comment N [Aut omated message] The Basophils) system which ge nerated this result tra nsmitted reference range : <=1.0. The reference r annemarie was not used to int erpret this result as normal/abnormal . [facility] CenterBxvowurVXBDKXRJZY0302-27-11 06:42:00 Test Item Value Reference Range Interpretation Comments Segs-Bands # (test code = Segs-Bands #) 9.9 1.5-8.1 H [facility] CenterUwmmoeuBNOBQCCDLV3468-36-63 06:42:00 Test Item Value Reference Range Interpretation Comments Lymphocytes # (test code = Lymphocytes 1.2 1.0-5.5 N #) [facility] CenterOfmmmrhVHEBBWMTMG4252-36-46 06:42:00 Test Item Value Reference Range Interpretation Comments Monocytes # (test code 1.3 See_Comment H [Aut omated message] The = Monocytes #) system which generated this result tra nsmitted reference range : <=0.8. The reference r annemarie was not used to int erpret this result as normal/abnormal . [facility] CenterArrjthjRMTILUWSN5747-85-89 06:42:00 Test Item Value Reference Range Interpretation Comments B/C Ratio (test code = B/C Ratio) 8 6-25 N [facility] CenterPuqwknuVYXINQDYF9655-01-68 06:42:00 Test Item Value Reference Range Interpretation Comments Globulin (test code = Globulin) 2.5 2.0-4.0 N [facility] CenterWibevxtMQKKNMXJB7911-19-24 06:42:00 Test Item Value Reference Range Interpretation Comments AGAP (test code = AGAP) 16.9 10.0-20.0 N [facility] CenterIqlgyrgUVEYZITRM4189-62-17 06:42:00 Test Item Value Reference Range Interpretation Comments A/G Ratio (test code = A/G Ratio) 1.6 0.7-1.6 N [facility] CenterKkdfphbEQSXNWUSF0846-34-82 06:42:00 Test Item Value Reference Range Interpretation Comments eGFR (test code = eGFR) 105 [facility] CenterPozivysZKDJSIIEF6157-48-92 06:42:00 Test Item Value Reference Range Interpretation Comments Glucose Lvl (test code = Glucose Lvl) 109 70-99 H [facility] CenterOuckolaBOLYJZEPX5289-90-94 06:42:00 Test Item Value Reference Range Interpretation Comments ALT (test code = ALT) 26 See_Comment N [Auto mated message] The system which ge nerated this result transmit abdelrahman reference range : <=65. The reference range was not used to interpr et this result as gurpreet l/abnormal. [facility] CenterNvqtgwiZYJWGHFVE0132-41-40 06:42:00 Test Item Value Reference Range Interpretation Comments Albumin Lvl (test code = Albumin Lvl) 3.9 3.5-5.0 N [facility] CenterWduafmzTRSISUBJK9108-54-42 06:42:00 Test Item Value Reference Range Interpretation Comments Alk Phos (test code = Alk Phos) 47 39-136 N [facility] CenterUtembzpLAEVRBQAW6574-31-34 06:42:00 Test Item Value Reference Range Interpretation Comments Total Protein (test code = Total 6.4 6.4-8.4 N Protein) [facility] CenterXwtqfhjIJGBTLYLV9168-85-75 06:42:00 Test Item Value Reference Range Interpretation Comments AST (test code = AST) 31 See_Comment N [Auto mated message] The system which ge nerated this result transmit abdelrahman reference range : <=37. The reference range was not used to interpr et this result as gurpreet l/abnormal. [facility] CenterAievdyeTEBKWDBMQ3676-09-85 06:42:00 Test Item Value Reference Range Interpretation Comments Calcium Lvl (test code = Calcium Lvl) 9.0 8.5-10.5 N [facility] CenterFzhiwyiFFHUFRXIC5583-48-86 06:42:00 Test Item Value Reference Range Interpretation Comments Bili Total (test code = Bili Total) 0.4 0.2-1.3 N [facility] CenterYixhztqHZQFCWVPD8920-23-63 06:42:00 Test Item Value Reference Range Interpretation Comments Chloride Lvl (test code = Chloride Lvl) 104 95-109 N [facility] CenterUqmzavwIBMEFPWJG0983-17-34 06:42:00 Test Item Value Reference Range Interpretation Comments CO2 (test code = CO2) 24 24-32 N [facility] CenterIfkbvbfQOOOEUPWO8608-76-41 06:42:00 Test Item Value Reference Range Interpretation Comments Sodium Lvl (test code = Sodium Lvl) 141 135-145 N [facility] CenterShgndgkHYFOFGQXS9735-20-68 06:42:00 Test Item Value Reference Range Interpretation Comments Potassium Lvl (test code = Potassium 3.9 3.5-5.1 N Lvl) [facility] CenterJorpeduZTIHATHEW5135-33-46 06:42:00 Test Item Value Reference Range Interpretation Comments BUN (test code = BUN) 8 7-22 N [facility] CenterPtesiiqWGOWBISOR9597-36-90 06:42:00 Test Item Value Reference Range Interpretation Comments Creatinine Lvl (test code = Creatinine 1.0 0.5-1.4 N Lvl) [facility] CenterEpakswyEVBMAJSNOF2745-51-57 06:42:00 Test Item Value Reference Range Interpretation Comments MCH (test code = MCH) 30.2 pg 27.0-31.0 N [facility] CenterYdkpjbdMEHFSYDFQP3175-14-91 06:42:00 Test Item Value Reference Range Interpretation Comments Platelet (test code = Platelet) 134 133-450 N [facility] CenterTdpukltKBTVZKTIMY3489-27-52 06:42:00 Test Item Value Reference Range Interpretation Comments MPV (test code = MPV) 10.1 7.4-10.4 N [facility] CenterSsallcuXVPIPVHZUG7147-79-27 06:42:00 Test Item Value Reference Range Interpretation Comments RDW (test code = RDW) 13.4 11.5-14.5 N [facility] CenterXneksmkQRGTFENPDC7735-30-13 06:42:00 Test Item Value Reference Range Interpretation Comments Hct (test code = Hct) 39.4 42.0-54.0 L [facility] CenterQvkmsfhHVBFJYBUTV6402-79-24 06:42:00 Test Item Value Reference Range Interpretation Comments MCV (test code = MCV) 89.5 80.0-94.0 N [facility] CenterRnnlpfjHXJKOFDYQB6625-73-70 06:42:00 Test Item Value Reference Range Interpretation Comments Hgb (test code = Hgb) 13.3 14.0-18.0 L [facility] CenterAfycdkbXYFLILIAQL0704-92-29 06:42:00 Test Item Value Reference Range Interpretation Comments MCHC (test code = MCHC) 33.7 32.0-36.0 N [facility] CenterPeoesjcFYXFTLEZWO6180-64-82 06:42:00 Test Item Value Reference Range Interpretation Comments WBC (test code = WBC) 12.5 3.7-10.4 H [facility] CenterXgcdpqcZESHEQNIIF8497-27-99 06:42:00 Test Item Value Reference Range Interpretation Comments RBC (test code = RBC) 4.40 4.70-6.10 L [facility] CenterRwzvjktFQLRLKNRKA0199-04-50 06:42:00 Test Item Value Reference Range Interpretation Comments Lymphocytes (test code = Lymphocytes) 9.4 20.0-40.0 L [facility] CenterIpiirqeHXCHZYRNDU0591-80-09 06:42:00 Test Item Value Reference Range Interpretation Comments Monocytes (test code = Monocytes) 10.8 2.0-12.0 N [facility] CenterFocazrpFIQRDIYDVN8843-63-45 06:42:00 Test Item Value Reference Range Interpretation Comments Segs (test code = Segs) 79.6 45.0-75.0 H [facility] CenterCkfgekfRXHTBHFPLM1472-60-84 06:42:00 Test Item Value Reference Range Interpretation Comments Eosinophils (test code = 0.1 See_Comment N [A utomated message] The Eosinophils) system which ge nerated this result tra nsmitted reference range : <=4.0. The reference r annemarie was not used to int erpret this result as normal/abnormal . [facility] CenterBrnzhfdRYNGLWLPVG6037-46-66 06:42:00 Test Item Value Reference Range Interpretation Comments Basophils (test code = 0.1 See_Comment N [Aut omated message] The Basophils) system which ge nerated this result tra nsmitted reference range : <=1.0. The reference r annemarie was not used to int erpret this result as normal/abnormal . [facility] CenterZqkzdvnBBTIVNPQAC1711-59-53 06:42:00 Test Item Value Reference Range Interpretation Comments Segs-Bands # (test code = Segs-Bands #) 9.9 1.5-8.1 H [facility] CenterOyboggvEYGXZNJCCS1295-23-55 06:42:00 Test Item Value Reference Range Interpretation Comments Lymphocytes # (test code = Lymphocytes 1.2 1.0-5.5 N #) [facility] CenterIerrgmcBQCWYWIJJE9202-89-87 06:42:00 Test Item Value Reference Range Interpretation Comments Monocytes # (test code 1.3 See_Comment H [Aut omated message] The = Monocytes #) system which generated this result tra nsmitted reference range : <=0.8. The reference r annemarie was not used to int erpret this result as normal/abnormal . [facility] CenterEdsedxpQYPDDJFNZ4725-90-09 06:42:00 Test Item Value Reference Range Interpretation Comments B/C Ratio (test code = B/C Ratio) 8 6-25 N [facility] CenterOqrljelUASVWDRIF6026-56-19 06:42:00 Test Item Value Reference Range Interpretation Comments Globulin (test code = Globulin) 2.5 2.0-4.0 N [facility] CenterCekwdrvHAEGLLQEB1262-41-57 06:42:00 Test Item Value Reference Range Interpretation Comments AGAP (test code = AGAP) 16.9 10.0-20.0 N [facility] CenterQukkcksAICUUNRCA9443-19-90 06:42:00 Test Item Value Reference Range Interpretation Comments A/G Ratio (test code = A/G Ratio) 1.6 0.7-1.6 N [facility] CenterAwuzwbuYLGLBHTSF2258-32-95 06:42:00 Test Item Value Reference Range Interpretation Comments eGFR (test code = eGFR) 105 [facility] CenterKempivrUZQSARILH3121-82-93 06:42:00 Test Item Value Reference Range Interpretation Comments Glucose Lvl (test code = Glucose Lvl) 109 70-99 H [facility] CenterXpurcmoDXHPRTUTX2928-68-05 06:42:00 Test Item Value Reference Range Interpretation Comments ALT (test code = ALT) 26 See_Comment N [Auto mated message] The system which ge nerated this result transmit abdelrahman reference range : <=65. The reference range was not used to interpr et this result as gurpreet l/abnormal. [facility] CenterNbsxahwHMAUIAXQS8881-09-94 06:42:00 Test Item Value Reference Range Interpretation Comments Albumin Lvl (test code = Albumin Lvl) 3.9 3.5-5.0 N [facility] CenterSkidqfoFGJXBNJHG6725-91-03 06:42:00 Test Item Value Reference Range Interpretation Comments Alk Phos (test code = Alk Phos) 47 39-136 N [facility] CenterHgcuttlBBGWOPUKN2099-14-45 06:42:00 Test Item Value Reference Range Interpretation Comments Total Protein (test code = Total 6.4 6.4-8.4 N Protein) [facility] CenterMelflkuKHRZCYOKY4376-80-28 06:42:00 Test Item Value Reference Range Interpretation Comments AST (test code = AST) 31 See_Comment N [Auto mated message] The system which ge nerated this result transmit abdelrahman reference range : <=37. The reference range was not used to interpr et this result as gurpreet l/abnormal. [facility] CenterZwsjncvQKUNKDDXT4030-27-74 06:42:00 Test Item Value Reference Range Interpretation Comments Calcium Lvl (test code = Calcium Lvl) 9.0 8.5-10.5 N [facility] CenterGulbybnZTEJJASBF5083-93-16 06:42:00 Test Item Value Reference Range Interpretation Comments Bili Total (test code = Bili Total) 0.4 0.2-1.3 N [facility] CenterTsioscyLXSFHJJUP3709-81-90 06:42:00 Test Item Value Reference Range Interpretation Comments Chloride Lvl (test code = Chloride Lvl) 104 95-109 N [facility] CenterCetjptlKDSZWKEDD4725-51-45 06:42:00 Test Item Value Reference Range Interpretation Comments CO2 (test code = CO2) 24 24-32 N [facility] CenterAamlwvfCMGGXCRQN6249-85-94 06:42:00 Test Item Value Reference Range Interpretation Comments Sodium Lvl (test code = Sodium Lvl) 141 135-145 N [facility] CenterCpuzpfpVRDGHKYJB6072-83-06 06:42:00 Test Item Value Reference Range Interpretation Comments Potassium Lvl (test code = Potassium 3.9 3.5-5.1 N Lvl) [facility] CenterQodznroLOTPBXGEQ4824-99-69 06:42:00 Test Item Value Reference Range Interpretation Comments BUN (test code = BUN) 8 7-22 N [facility] CenterSrdczjnKHCUANFPM8787-62-61 06:42:00 Test Item Value Reference Range Interpretation Comments Creatinine Lvl (test code = Creatinine 1.0 0.5-1.4 N Lvl) [facility] CenterRgsarmiEWSBPHGANN3624-11-78 06:42:00 Test Item Value Reference Range Interpretation Comments MCH (test code = MCH) 30.2 pg 27.0-31.0 N [facility] CenterHyziuqoETFNBCPZFJ5220-30-42 06:42:00 Test Item Value Reference Range Interpretation Comments Platelet (test code = Platelet) 134 133-450 N [facility] CenterVuuqlyzFXDSQWLXKU8711-76-62 06:42:00 Test Item Value Reference Range Interpretation Comments MPV (test code = MPV) 10.1 7.4-10.4 N [facility] CenterPornhuwIHYMQJTYKB3444-76-39 06:42:00 Test Item Value Reference Range Interpretation Comments RDW (test code = RDW) 13.4 11.5-14.5 N [facility] CenterLjnqcprIJAGRASXJN6685-83-63 06:42:00 Test Item Value Reference Range Interpretation Comments Hct (test code = Hct) 39.4 42.0-54.0 L [facility] CenterVvzwtfhNBPEISAJAS5033-80-61 06:42:00 Test Item Value Reference Range Interpretation Comments MCV (test code = MCV) 89.5 80.0-94.0 N [facility] CenterAkzmpgeXECAHJKYHM7448-44-90 06:42:00 Test Item Value Reference Range Interpretation Comments Hgb (test code = Hgb) 13.3 14.0-18.0 L [facility] CenterAzmqsgxDXVYSRIDLU2388-71-05 06:42:00 Test Item Value Reference Range Interpretation Comments MCHC (test code = MCHC) 33.7 32.0-36.0 N [facility] CenterKswprsqDJSIAMFIOY6398-05-25 06:42:00 Test Item Value Reference Range Interpretation Comments WBC (test code = WBC) 12.5 3.7-10.4 H [facility] CenterGwoulimHQIPWERLES2860-56-03 06:42:00 Test Item Value Reference Range Interpretation Comments RBC (test code = RBC) 4.40 4.70-6.10 L [facility] CenterVhyvaybSOTQALAWCW2140-88-86 06:42:00 Test Item Value Reference Range Interpretation Comments Lymphocytes (test code = Lymphocytes) 9.4 20.0-40.0 L [facility] CenterVqatrfaACIZAMMGUQ9087-33-48 06:42:00 Test Item Value Reference Range Interpretation Comments Monocytes (test code = Monocytes) 10.8 2.0-12.0 N [facility] CenterYnqymynHOHNZYGFFI3800-47-99 06:42:00 Test Item Value Reference Range Interpretation Comments Segs (test code = Segs) 79.6 45.0-75.0 H [facility] CenterDhisyxhDITCGPLRJC1864-70-17 06:42:00 Test Item Value Reference Range Interpretation Comments Eosinophils (test code = 0.1 See_Comment N [A utomated message] The Eosinophils) system which ge nerated this result tra nsmitted reference range : <=4.0. The reference r annemarie was not used to int erpret this result as normal/abnormal . [facility]NcyxdbmVZYTHQTTPY7374-40-36 06:42:00 Test Item Value Reference Range Interpretation Comments Basophils (test code = 0.1 See_Comment N [Aut omated message] The Basophils) system which ge nerated this result tra nsmitted reference range : <=1.0. The reference r annemarie was not used to int erpret this result as normal/abnormal . [facility] CenterPajrqecSNZQLWVLWE8377-70-64 06:42:00 Test Item Value Reference Range Interpretation Comments Segs-Bands # (test code = Segs-Bands #) 9.9 1.5-8.1 H [facility] CenterOkcwcaeXWSLOYUKDC1266-16-94 06:42:00 Test Item Value Reference Range Interpretation Comments Lymphocytes # (test code = Lymphocytes 1.2 1.0-5.5 N #) [facility] CenterEskkryxEXJAZJAVOF9964-75-29 06:42:00 Test Item Value Reference Range Interpretation Comments Monocytes # (test code 1.3 See_Comment H [Aut omated message] The = Monocytes #) system which generated this result tra nsmitted reference range : <=0.8. The reference r annemarie was not used to int erpret this result as normal/abnormal . [facility] CenterHzaleytJWKHWVUXI0359-62-45 06:42:00 Test Item Value Reference Range Interpretation Comments B/C Ratio (test code = B/C Ratio) 8 6-25 N [facility] CenterXzcbcmjEWXIGPBDH2535-95-57 06:42:00 Test Item Value Reference Range Interpretation Comments Globulin (test code = Globulin) 2.5 2.0-4.0 N [facility] CenterOmgnzkvLCLTVBVSW5141-66-85 06:42:00 Test Item Value Reference Range Interpretation Comments AGAP (test code = AGAP) 16.9 10.0-20.0 N [facility] CenterQfpeyijTWRQVQHTR1335-38-37 06:42:00 Test Item Value Reference Range Interpretation Comments A/G Ratio (test code = A/G Ratio) 1.6 0.7-1.6 N [facility] CenterYulyckmBOCRTWDWO4848-91-72 06:42:00 Test Item Value Reference Range Interpretation Comments eGFR (test code = eGFR) 105 [facility] CenterYvtfiwpTTLHTQWGW5403-73-92 06:42:00 Test Item Value Reference Range Interpretation Comments Glucose Lvl (test code = Glucose Lvl) 109 70-99 H [facility] CenterIskfhrdHPPZKLBDD1358-99-29 06:42:00 Test Item Value Reference Range Interpretation Comments ALT (test code = ALT) 26 See_Comment N [Auto mated message] The system which ge nerated this result transmit abdelrahman reference range : <=65. The reference range was not used to interpr et this result as gurpreet l/abnormal. [facility] CenterLvrliirIOZVQWQHN1818-85-62 06:42:00 Test Item Value Reference Range Interpretation Comments Albumin Lvl (test code = Albumin Lvl) 3.9 3.5-5.0 N [facility] CenterRenqovzIZAQITGIH1359-73-52 06:42:00 Test Item Value Reference Range Interpretation Comments Alk Phos (test code = Alk Phos) 47 39-136 N [facility] CenterBnsajcpUWVOYPTFM9146-25-06 06:42:00 Test Item Value Reference Range Interpretation Comments Total Protein (test code = Total 6.4 6.4-8.4 N Protein) [facility] CenterVpwlwpyKZTIGEHVH4892-52-58 06:42:00 Test Item Value Reference Range Interpretation Comments AST (test code = AST) 31 See_Comment N [Auto mated message] The system which ge nerated this result transmit abdelrahman reference range : <=37. The reference range was not used to interpr et this result as gurpreet l/abnormal. [facility] CenterNsrjbtdZHRFYLMRT1039-68-62 06:42:00 Test Item Value Reference Range Interpretation Comments Calcium Lvl (test code = Calcium Lvl) 9.0 8.5-10.5 N [facility] CenterMwxsgdcWZNLJXBLS8668-51-72 06:42:00 Test Item Value Reference Range Interpretation Comments Bili Total (test code = Bili Total) 0.4 0.2-1.3 N [facility] CenterZvlgmsyDAFOOOEQX1989-60-62 06:42:00 Test Item Value Reference Range Interpretation Comments Chloride Lvl (test code = Chloride Lvl) 104 95-109 N [facility] CenterNdhenjfLRNIUQFNA0549-80-82 06:42:00 Test Item Value Reference Range Interpretation Comments CO2 (test code = CO2) 24 24-32 N [facility] CenterUzbqivxGYPZZRAXH5112-84-58 06:42:00 Test Item Value Reference Range Interpretation Comments Sodium Lvl (test code = Sodium Lvl) 141 135-145 N [facility] CenterVtlnghhQEDWTNTQS9651-95-73 06:42:00 Test Item Value Reference Range Interpretation Comments Potassium Lvl (test code = Potassium 3.9 3.5-5.1 N Lvl) [facility] CenterBemvglbIWZALKXRV6756-61-64 06:42:00 Test Item Value Reference Range Interpretation Comments BUN (test code = BUN) 8 7-22 N [facility] CenterBclntvcZGGMJOFJD5208-35-89 06:42:00 Test Item Value Reference Range Interpretation Comments Creatinine Lvl (test code = Creatinine 1.0 0.5-1.4 N Lvl) [facility] CenterOpdillzZZCSWYJEOH0018-48-44 06:42:00 Test Item Value Reference Range Interpretation Comments MCH (test code = MCH) 30.2 pg 27.0-31.0 N [facility] CenterZvystrgCFYQFHYRDC7281-83-90 06:42:00 Test Item Value Reference Range Interpretation Comments Platelet (test code = Platelet) 134 133-450 N [facility] CenterMlphwnsSFVTVFSTOB6279-59-64 06:42:00 Test Item Value Reference Range Interpretation Comments MPV (test code = MPV) 10.1 7.4-10.4 N [facility] CenterVwcixtfJYHVBROKDR3381-15-83 06:42:00 Test Item Value Reference Range Interpretation Comments RDW (test code = RDW) 13.4 11.5-14.5 N [facility] CenterLtaenphLFCCRMNWIQ8609-19-12 06:42:00 Test Item Value Reference Range Interpretation Comments Hct (test code = Hct) 39.4 42.0-54.0 L [facility] CenterKgctkibEBZRHUEHSK8531-98-94 06:42:00 Test Item Value Reference Range Interpretation Comments MCV (test code = MCV) 89.5 80.0-94.0 N [facility] CenterLwemxhxDHSAMFGALJ2926-03-08 06:42:00 Test Item Value Reference Range Interpretation Comments Hgb (test code = Hgb) 13.3 14.0-18.0 L [facility] CenterRiarqqyTLVYMAGALK6370-44-80 06:42:00 Test Item Value Reference Range Interpretation Comments MCHC (test code = MCHC) 33.7 32.0-36.0 N [facility] CenterJrwfqzmZUAHGAGKJN3045-31-31 06:42:00 Test Item Value Reference Range Interpretation Comments WBC (test code = WBC) 12.5 3.7-10.4 H [facility] CenterOqcejbmYUXYIKXRUI1985-27-90 06:42:00 Test Item Value Reference Range Interpretation Comments RBC (test code = RBC) 4.40 4.70-6.10 L [facility] CenterWkzaqrxHPULTZZWKY0871-28-67 06:42:00 Test Item Value Reference Range Interpretation Comments Lymphocytes (test code = Lymphocytes) 9.4 20.0-40.0 L [facility] CenterBefmnlqDSXITCYVGL2462-95-51 06:42:00 Test Item Value Reference Range Interpretation Comments Monocytes (test code = Monocytes) 10.8 2.0-12.0 N [facility] CenterYvpeiinSLKHLKXUCG9089-68-86 06:42:00 Test Item Value Reference Range Interpretation Comments Segs (test code = Segs) 79.6 45.0-75.0 H [facility] CenterOflcuknOIEMCKKTGP3977-83-45 06:42:00 Test Item Value Reference Range Interpretation Comments Eosinophils (test code = 0.1 See_Comment N [A utomated message] The Eosinophils) system which ge nerated this result tra nsmitted reference range : <=4.0. The reference r annemarie was not used to int erpret this result as normal/abnormal . [facility] CenterJhvtapmRTOSMBGFLL5425-57-47 06:42:00 Test Item Value Reference Range Interpretation Comments Basophils (test code = 0.1 See_Comment N [Aut omated message] The Basophils) system which ge nerated this result tra nsmitted reference range : <=1.0. The reference r annemarie was not used to int erpret this result as normal/abnormal . [facility] CenterPrhtfjoTOQUQFRNQU8239-87-57 06:42:00 Test Item Value Reference Range Interpretation Comments Segs-Bands # (test code = Segs-Bands #) 9.9 1.5-8.1 H [facility] CenterOtqfweaVUCZNNPJQI6985-83-69 06:42:00 Test Item Value Reference Range Interpretation Comments Lymphocytes # (test code = Lymphocytes 1.2 1.0-5.5 N #) [facility] CenterXimdpfvCCVDUSWWAG7046-21-98 06:42:00 Test Item Value Reference Range Interpretation Comments Monocytes # (test code 1.3 See_Comment H [Aut omated message] The = Monocytes #) system which generated this result tra nsmitted reference range : <=0.8. The reference r annemarie was not used to int erpret this result as normal/abnormal . [facility] CenterOwlttndHUERYFLIE1190-41-95 06:42:00 Test Item Value Reference Range Interpretation Comments B/C Ratio (test code = B/C Ratio) 8 6-25 N [facility] CenterAtmwbwjBTLBJGKGV3885-17-15 06:42:00 Test Item Value Reference Range Interpretation Comments Globulin (test code = Globulin) 2.5 2.0-4.0 N [facility] CenterTkgiwqzIQBOBEFNX7695-11-98 06:42:00 Test Item Value Reference Range Interpretation Comments AGAP (test code = AGAP) 16.9 10.0-20.0 N [facility] CenterJqynmzjUEYNRACMI2839-67-80 06:42:00 Test Item Value Reference Range Interpretation Comments A/G Ratio (test code = A/G Ratio) 1.6 0.7-1.6 N [facility] CenterEjsytzgNXDKNLSCG4792-54-94 06:42:00 Test Item Value Reference Range Interpretation Comments eGFR (test code = eGFR) 105 [facility] CenterAhzytabUVPQIFADX4289-85-67 06:42:00 Test Item Value Reference Range Interpretation Comments Glucose Lvl (test code = Glucose Lvl) 109 70-99 H [facility] CenterSppnhiyLTCJRKUWT7972-40-82 06:42:00 Test Item Value Reference Range Interpretation Comments ALT (test code = ALT) 26 See_Comment N [Auto mated message] The system which ge nerated this result transmit abdelrahman reference range : <=65. The reference range was not used to interpr et this result as gurpreet l/abnormal. [facility] CenterJxrjyyhJBNNDFSYN2110-88-02 06:42:00 Test Item Value Reference Range Interpretation Comments Albumin Lvl (test code = Albumin Lvl) 3.9 3.5-5.0 N [facility] CenterJhvrzmtZZDZSCATA1393-62-88 06:42:00 Test Item Value Reference Range Interpretation Comments Alk Phos (test code = Alk Phos) 47 39-136 N [facility] CenterFfhozkqOMBHZJDZW3707-99-71 06:42:00 Test Item Value Reference Range Interpretation Comments Total Protein (test code = Total 6.4 6.4-8.4 N Protein) [facility] CenterQoefpdnGVUQFQFOZ6446-15-53 06:42:00 Test Item Value Reference Range Interpretation Comments AST (test code = AST) 31 See_Comment N [Auto mated message] The system which ge nerated this result transmit abdelrahman reference range : <=37. The reference range was not used to interpr et this result as gurpreet l/abnormal. [facility] CenterQjtzmugAWPAOOGGP4456-66-89 06:42:00 Test Item Value Reference Range Interpretation Comments Calcium Lvl (test code = Calcium Lvl) 9.0 8.5-10.5 N [facility] CenterXgnbspgPHDBZZIMP5208-54-37 06:42:00 Test Item Value Reference Range Interpretation Comments Bili Total (test code = Bili Total) 0.4 0.2-1.3 N [facility] CenterFcbrpytJVLUAZDXU6721-71-61 06:42:00 Test Item Value Reference Range Interpretation Comments Chloride Lvl (test code = Chloride Lvl) 104 95-109 N [facility] CenterQnliqlmOMTZJYCKC5001-35-23 06:42:00 Test Item Value Reference Range Interpretation Comments CO2 (test code = CO2) 24 24-32 N [facility] CenterXpztfgcJBEYOIYJG0284-55-90 06:42:00 Test Item Value Reference Range Interpretation Comments Sodium Lvl (test code = Sodium Lvl) 141 135-145 N [facility] CenterQakloieGKDZNQRYT5633-27-54 06:42:00 Test Item Value Reference Range Interpretation Comments Potassium Lvl (test code = Potassium 3.9 3.5-5.1 N Lvl) [facility] CenterPgrscuvSZXFTGDTB9806-57-61 06:42:00 Test Item Value Reference Range Interpretation Comments BUN (test code = BUN) 8 7-22 N [facility] CenterRxmxwjeBQUAPJHUC9885-04-74 06:42:00 Test Item Value Reference Range Interpretation Comments Creatinine Lvl (test code = Creatinine 1.0 0.5-1.4 N Lvl) [facility] CenterFwbobjiSJXAEAMCRN3252-23-05 06:42:00 Test Item Value Reference Range Interpretation Comments MCH (test code = MCH) 30.2 pg 27.0-31.0 N [facility] CenterIwkslfjHTBBIQZDWU1687-26-22 06:42:00 Test Item Value Reference Range Interpretation Comments Platelet (test code = Platelet) 134 133-450 N [facility] CenterOaoogibBCKWRXQAYU7321-84-19 06:42:00 Test Item Value Reference Range Interpretation Comments MPV (test code = MPV) 10.1 7.4-10.4 N [facility] CenterVulutqwPPYGQJZFBF1735-55-76 06:42:00 Test Item Value Reference Range Interpretation Comments RDW (test code = RDW) 13.4 11.5-14.5 N [facility] CenterUwubdkmKJQTJUMDQV7322-86-65 06:42:00 Test Item Value Reference Range Interpretation Comments Hct (test code = Hct) 39.4 42.0-54.0 L [facility] CenterRpsdmjiITYOHKOVBW1309-41-16 06:42:00 Test Item Value Reference Range Interpretation Comments MCV (test code = MCV) 89.5 80.0-94.0 N [facility] CenterFjidgjjGCSKVPZIXC7159-89-51 06:42:00 Test Item Value Reference Range Interpretation Comments Hgb (test code = Hgb) 13.3 14.0-18.0 L [facility] CenterFsivxosLYVTRTCBUS7155-11-93 06:42:00 Test Item Value Reference Range Interpretation Comments MCHC (test code = MCHC) 33.7 32.0-36.0 N [facility] CenterCzrblkzNSIPSELCJZ1732-47-31 06:42:00 Test Item Value Reference Range Interpretation Comments WBC (test code = WBC) 12.5 3.7-10.4 H [facility] CenterIcurugoKCYBVWQLIF2177-10-33 06:42:00 Test Item Value Reference Range Interpretation Comments RBC (test code = RBC) 4.40 4.70-6.10 L [facility] CenterClbbirjFEWYQRTRUA4423-52-60 06:42:00 Test Item Value Reference Range Interpretation Comments Lymphocytes (test code = Lymphocytes) 9.4 20.0-40.0 L [facility] CenterNpffxnhUQEUAURDTZ0543-90-20 06:42:00 Test Item Value Reference Range Interpretation Comments Monocytes (test code = Monocytes) 10.8 2.0-12.0 N [facility] CenterUyjhpmaKPTXOTBOTF1648-02-83 06:42:00 Test Item Value Reference Range Interpretation Comments Segs (test code = Segs) 79.6 45.0-75.0 H [facility] CenterVzymzkmTOATPFUZUV8475-19-42 06:42:00 Test Item Value Reference Range Interpretation Comments Eosinophils (test code = 0.1 See_Comment N [A utomated message] The Eosinophils) system which ge nerated this result tra nsmitted reference range : <=4.0. The reference r annemarie was not used to int erpret this result as normal/abnormal . [facility] CenterDgszakkHXFLKVHUJY0877-18-83 06:42:00 Test Item Value Reference Range Interpretation Comments Basophils (test code = 0.1 See_Comment N [Aut omated message] The Basophils) system which ge nerated this result tra nsmitted reference range : <=1.0. The reference r annemarie was not used to int erpret this result as normal/abnormal . [facility] CenterAmelzkwDMWJFKQUNH4169-53-01 06:42:00 Test Item Value Reference Range Interpretation Comments Segs-Bands # (test code = Segs-Bands #) 9.9 1.5-8.1 H [facility] CenterMjrpmptFFAKELFUEV3483-12-49 06:42:00 Test Item Value Reference Range Interpretation Comments Lymphocytes # (test code = Lymphocytes 1.2 1.0-5.5 N #) [facility] CenterPmyrutwGULITSODEW1897-71-25 06:42:00 Test Item Value Reference Range Interpretation Comments Monocytes # (test code 1.3 See_Comment H [Aut omated message] The = Monocytes #) system which generated this result tra nsmitted reference range : <=0.8. The reference r annemarie was not used to int erpret this result as normal/abnormal . [facility] CenterXrawpncSSEJMLIQL2753-60-02 06:42:00 Test Item Value Reference Range Interpretation Comments B/C Ratio (test code = B/C Ratio) 8 6-25 N [facility] CenterLslwbcsDCZIYCCOD2609-69-89 06:42:00 Test Item Value Reference Range Interpretation Comments Globulin (test code = Globulin) 2.5 2.0-4.0 N [facility] CenterRfpcdzgDAZPEIDHB8048-63-32 06:42:00 Test Item Value Reference Range Interpretation Comments AGAP (test code = AGAP) 16.9 10.0-20.0 N [facility] CenterAknorxrHAWZFMTVX9438-00-44 06:42:00 Test Item Value Reference Range Interpretation Comments A/G Ratio (test code = A/G Ratio) 1.6 0.7-1.6 N [facility] CenterWgihtuqHEMCORMZW5764-05-61 06:42:00 Test Item Value Reference Range Interpretation Comments eGFR (test code = eGFR) 105 [facility] CenterCpmozpiRPSTOCOOH3257-39-03 06:42:00 Test Item Value Reference Range Interpretation Comments Glucose Lvl (test code = Glucose Lvl) 109 70-99 H [facility] CenterMzvrdmzTXLEVHYNQ1733-21-60 06:42:00 Test Item Value Reference Range Interpretation Comments ALT (test code = ALT) 26 See_Comment N [Auto mated message] The system which ge nerated this result transmit abdelrahman reference range : <=65. The reference range was not used to interpr et this result as gurpreet l/abnormal. [facility] CenterErpdkpsCGTHDOOOO4885-59-06 06:42:00 Test Item Value Reference Range Interpretation Comments Albumin Lvl (test code = Albumin Lvl) 3.9 3.5-5.0 N [facility] CenterOeppebwGSZOAJDSR3545-23-51 06:42:00 Test Item Value Reference Range Interpretation Comments Alk Phos (test code = Alk Phos) 47 39-136 N [facility] CenterRrywpaqMQZCUJWOH0418-79-81 06:42:00 Test Item Value Reference Range Interpretation Comments Total Protein (test code = Total 6.4 6.4-8.4 N Protein) [facility] CenterRfgivgdCVJQKIBCW6635-32-37 06:42:00 Test Item Value Reference Range Interpretation Comments AST (test code = AST) 31 See_Comment N [Auto mated message] The system which ge nerated this result transmit abdelrahman reference range : <=37. The reference range was not used to interpr et this result as gurpreet l/abnormal. [facility] CenterRfnbckuOKSJKSKDC5267-04-09 06:42:00 Test Item Value Reference Range Interpretation Comments Calcium Lvl (test code = Calcium Lvl) 9.0 8.5-10.5 N [facility] CenterXqkxbdpKYSXILTXY4175-54-72 06:42:00 Test Item Value Reference Range Interpretation Comments Bili Total (test code = Bili Total) 0.4 0.2-1.3 N [facility] CenterYpqwlxjUJMQFTHXN1548-27-71 06:42:00 Test Item Value Reference Range Interpretation Comments Chloride Lvl (test code = Chloride Lvl) 104 95-109 N [facility] CenterFtoiuqdEWNDSLAPV4889-79-70 06:42:00 Test Item Value Reference Range Interpretation Comments CO2 (test code = CO2) 24 24-32 N [facility] CenterPizhojtKQQFZTXQO6011-95-11 06:42:00 Test Item Value Reference Range Interpretation Comments Sodium Lvl (test code = Sodium Lvl) 141 135-145 N [facility] CenterVnjwmxqOHYYVFGRB4375-66-76 06:42:00 Test Item Value Reference Range Interpretation Comments Potassium Lvl (test code = Potassium 3.9 3.5-5.1 N Lvl) [facility] CenterUdbfhlyHDMJKCYVX0724-61-50 06:42:00 Test Item Value Reference Range Interpretation Comments BUN (test code = BUN) 8 7-22 N [facility] CenterJsllntcZOEPGYOGD9778-93-65 06:42:00 Test Item Value Reference Range Interpretation Comments Creatinine Lvl (test code = Creatinine 1.0 0.5-1.4 N Lvl) [facility] CenterWjtcajjELQURMFWYO2937-93-49 06:42:00 Test Item Value Reference Range Interpretation Comments MCH (test code = MCH) 30.2 pg 27.0-31.0 N [facility] CenterWzevpquCISJXMOAPU3011-60-02 06:42:00 Test Item Value Reference Range Interpretation Comments Platelet (test code = Platelet) 134 133-450 N [facility] CenterWzxqixeBEFZFWJEJO1430-96-39 06:42:00 Test Item Value Reference Range Interpretation Comments MPV (test code = MPV) 10.1 7.4-10.4 N [facility] CenterMgaliouRNTVUYCACY8936-90-89 06:42:00 Test Item Value Reference Range Interpretation Comments RDW (test code = RDW) 13.4 11.5-14.5 N [facility] CenterMoearbfQMWRIQYLCU4408-66-31 06:42:00 Test Item Value Reference Range Interpretation Comments Hct (test code = Hct) 39.4 42.0-54.0 L [facility] CenterOuvatqpLYNBYUEQUK6694-07-23 06:42:00 Test Item Value Reference Range Interpretation Comments MCV (test code = MCV) 89.5 80.0-94.0 N [facility] CenterCrrtkynOIIWBVJUSE5471-26-79 06:42:00 Test Item Value Reference Range Interpretation Comments Hgb (test code = Hgb) 13.3 14.0-18.0 L [facility] CenterGqofcarKODJPOZHLC9097-00-68 06:42:00 Test Item Value Reference Range Interpretation Comments MCHC (test code = MCHC) 33.7 32.0-36.0 N [facility] CenterZawnkcyEDQMTPPXXE5304-21-75 06:42:00 Test Item Value Reference Range Interpretation Comments WBC (test code = WBC) 12.5 3.7-10.4 H [facility] CenterMoufmyiFGRPSSCJXU3764-07-60 06:42:00 Test Item Value Reference Range Interpretation Comments RBC (test code = RBC) 4.40 4.70-6.10 L [facility] CenterWfvbdqdDYTSVTWJGO0470-12-33 06:42:00 Test Item Value Reference Range Interpretation Comments Lymphocytes (test code = Lymphocytes) 9.4 20.0-40.0 L [facility] CenterIlsmhgkKSAKCZIJHT6398-77-36 06:42:00 Test Item Value Reference Range Interpretation Comments Monocytes (test code = Monocytes) 10.8 2.0-12.0 N [facility] CenterZduyyqbQXQVPSZKWT2330-41-38 06:42:00 Test Item Value Reference Range Interpretation Comments Segs (test code = Segs) 79.6 45.0-75.0 H [facility] CenterRtycjwaXXCNIJAOOK8768-31-08 06:42:00 Test Item Value Reference Range Interpretation Comments Eosinophils (test code = 0.1 See_Comment N [A utomated message] The Eosinophils) system which ge nerated this result tra nsmitted reference range : <=4.0. The reference r annemarie was not used to int erpret this result as normal/abnormal . [facility] CenterDdzgeqfSJIBGTXYAP8279-17-22 06:42:00 Test Item Value Reference Range Interpretation Comments Basophils (test code = 0.1 See_Comment N [Aut omated message] The Basophils) system which ge nerated this result tra nsmitted reference range : <=1.0. The reference r annemarie was not used to int erpret this result as normal/abnormal . [facility] CenterZbaafbdYALUIKERDO9462-12-53 06:42:00 Test Item Value Reference Range Interpretation Comments Segs-Bands # (test code = Segs-Bands #) 9.9 1.5-8.1 H [facility] CenterUptnfxdEXRFWAQACY8089-83-68 06:42:00 Test Item Value Reference Range Interpretation Comments Lymphocytes # (test code = Lymphocytes 1.2 1.0-5.5 N #) [facility] CenterRmgrwhoUCKDJVOVYA5633-57-57 06:42:00 Test Item Value Reference Range Interpretation Comments Monocytes # (test code 1.3 See_Comment H [Aut omated message] The = Monocytes #) system which generated this result tra nsmitted reference range : <=0.8. The reference r annemarie was not used to int erpret this result as normal/abnormal . [facility] CenterMgzgtywQJCMSWLPC7622-10-54 09:00:49 Test Item Value Reference Range Interpretation Comments Lactic Acid Lvl (test code = Lactic 2.0 0.5-2.2 N Acid Lvl) [facility] CenterIzvdnygBBVYRCPKP9680-99-97 09:00:49 Test Item Value Reference Range Interpretation Comments Lactic Acid Lvl (test code = Lactic 2.0 0.5-2.2 N Acid Lvl) [facility] CenterUghnawrFLDWNZHSW9593-67-90 09:00:49 Test Item Value Reference Range Interpretation Comments Lactic Acid Lvl (test code = Lactic 2.0 0.5-2.2 N Acid Lvl) [facility] CenterAscdaipVLDGOAHBG3037-71-27 09:00:49 Test Item Value Reference Range Interpretation Comments Lactic Acid Lvl (test code = Lactic 2.0 0.5-2.2 N Acid Lvl) [facility] CenterSoumahcKGNAVLZMN1347-14-01 09:00:49 Test Item Value Reference Range Interpretation Comments Lactic Acid Lvl (test code = Lactic 2.0 0.5-2.2 N Acid Lvl) [facility] CenterNmdpzsmBVVIEFJYC0852-22-13 09:00:49 Test Item Value Reference Range Interpretation Comments Lactic Acid Lvl (test code = Lactic 2.0 0.5-2.2 N Acid Lvl) [facility] CenterPubtcedTVGWURYIH1085-37-97 09:00:49 Test Item Value Reference Range Interpretation Comments Lactic Acid Lvl (test code = Lactic 2.0 0.5-2.2 N Acid Lvl) [facility] CenterHmormhnQBYWCUFIG4390-01-89 09:00:49 Test Item Value Reference Range Interpretation Comments Lactic Acid Lvl (test code = Lactic 2.0 0.5-2.2 N Acid Lvl) [facility] CenterKwzaqynRZPNJLMAR1556-15-31 09:00:49 Test Item Value Reference Range Interpretation Comments Lactic Acid Lvl (test code = Lactic 2.0 0.5-2.2 N Acid Lvl) [facility] CenterRziqwjsYFZUOGBRX1053-61-18 03:30:38 Test Item Value Reference Range Interpretation Comments UDS Note (test code = See Note 5(12/28/2012 N [facility] Note) 22:30:38) [facility] CenterUuglbzaBZVCBEZDA1527-16-07 03:30:38 Test Item Value Reference Range Interpretation Comments U Phencyc Scr (test Negative code = U Phencyc Scr) *NA*(12/28/2012 22:30:38) [facility] CenterVzyrjpnZZISWWXLZ4979-55-34 03:30:38 Test Item Value Reference Range Interpretation Comments U Opiate Scr (test Positive A code = U Opiate Scr) *ABN*(12/28/2012 22:30:38) [facility] CenterFrexllfXKDAUEREI3089-64-54 03:30:38 Test Item Value Reference Range Interpretation Comments U Cannab Scr (test Negative code = U Cannab Scr) *NA*(12/28/2012 22:30:38) [facility] CenterUvynslpQDIUXRBYV3130-36-21 03:30:38 Test Item Value Reference Range Interpretation Comments U Benzodia Scr (test Negative code = U Benzodia Scr) *NA*(12/28/2012 22:30:38) [facility] CenterLuhhgweBMEMQEXBQ9685-82-69 03:30:38 Test Item Value Reference Range Interpretation Comments U Odalys Scr (test code Negative *NA*(12/28/2012 = U Odalys Scr) 22:30:38) [facility] CenterBxlxwrjWWOWSTGFV8764-57-12 03:30:38 Test Item Value Reference Range Interpretation Comments U Amph Scr (test code Negative *NA*(12/28/2012 = U Amph Scr) 22:30:38) [facility] CenterAfyzexaDICQUIJYJ5409-22-21 03:30:38 Test Item Value Reference Range Interpretation Comments U Cocaine Scr (test Negative code = U Cocaine Scr) *NA*(12/28/2012 22:30:38) [facility]MdgejgnEHUCYXVLBG0927-95-32 03:30:38 Test Item Value Reference Range Interpretation Comments UA Ketones (test code Negative mg/dL = UA Ketones) *NA*(12/28/2012 22:30:38) [facility]BtubvwbEMSJNVYVFO6254-69-53 03:30:38 Test Item Value Reference Range Interpretation Comments UA Bili (test code = Negative *NA*(12/28/2012 UA Bili) 22:30:38) [facility]entonCytwxrrHNBHXTDPTO1201-94-67 03:30:38 Test Item Value Reference Range Interpretation Comments UA Nitrite (test code Negative (12/28/2012 N = UA Nitrite) 22:30:38) [facility]entonPnenlpuCQZXBCDBQR5481-07-35 03:30:38 Test Item Value Reference Range Interpretation Comments UA Urobilinogen (test code = UA 0.2 0.1-1.0 N Urobilinogen) [facility] DentonWdqkyrqHROHQQCIWA8850-56-93 03:30:38 Test Item Value Reference Range Interpretation Comments UA Blood (test code = Negative (12/28/2012 N UA Blood) 22:30:38) [facility]entonWgzrewhTKYAZENAOQ6952-08-31 03:30:38 Test Item Value Reference Range Interpretation Comments UA Leuk Est (test Negative (12/28/2012 N code = UA Leuk Est) 22:30:38) [facility] DentonRsbwcyaNGEQYCVEHQ7122-08-84 03:30:38 Test Item Value Reference Range Interpretation Comments UA pH (test code = UA pH) 7.0 1 5.0-8.0 N [facility] DentonDohcuojNWSSRQUXTN1281-44-31 03:30:38 Test Item Value Reference Range Interpretation Comments UA Glucose (test code Negative mg/dL N = UA Glucose) (12/28/2012 22:30:38) [facility] DentonOvghilzTHGPORHODW3944-28-30 03:30:38 Test Item Value Reference Range Interpretation Comments UA Spec Grav (test code = UA Spec 1.010 1 N Grav) [facility]entonWenbnvxTOWRXKIHZL3673-65-65 03:30:38 Test Item Value Reference Range Interpretation Comments UA Protein (test code Negative mg/dL N = UA Protein) (12/28/2012 22:30:38) [facility] DentonNucmhqsTXWCTMUGGR7723-45-70 03:30:38 Test Item Value Reference Range Interpretation Comments UA Turbidity (test code = Clear (12/28/2012 N UA Turbidity) 22:30:38) [facility] DentonPqdbmhqYCUUMGOPAY5337-00-90 03:30:38 Test Item Value Reference Range Interpretation Comments UA Color (test code = Yellow *NA*(12/28/2012 UA Color) 22:30:38) [facility] CenterNdvusszSMGGUQEQP4466-23-15 03:30:38 Test Item Value Reference Range Interpretation Comments UDS Note (test code = See Note 5(12/28/2012 N UDS Note) 22:30:38) [facility] CenterLvhndbcQYMBORNAP8343-68-48 03:30:38 Test Item Value Reference Range Interpretation Comments U Phencyc Scr (test Negative code = U Phencyc Scr) *NA*(12/28/2012 22:30:38) [facility] CenterDhwjeqyVBKFAGHAI8022-94-28 03:30:38 Test Item Value Reference Range Interpretation Comments U Opiate Scr (test Positive A code = U Opiate Scr) *ABN*(12/28/2012 22:30:38) [facility] CenterDiflknoNXGOSVVIG7185-67-15 03:30:38 Test Item Value Reference Range Interpretation Comments U Cannab Scr (test Negative code = U Cannab Scr) *NA*(12/28/2012 22:30:38) [facility] CenterCakojfmGQNUMWZNY2697-54-32 03:30:38 Test Item Value Reference Range Interpretation Comments U Benzodia Scr (test Negative code = U Benzodia Scr) *NA*(12/28/2012 22:30:38) [facility] CenterCxwuvemBSBMHFDVN1717-25-33 03:30:38 Test Item Value Reference Range Interpretation Comments U Odalys Scr (test code Negative *NA*(12/28/2012 = U Odalys Scr) 22:30:38) [facility] CenterMtvluxjFVTBEXIKG8903-06-89 03:30:38 Test Item Value Reference Range Interpretation Comments U Amph Scr (test code Negative *NA*(12/28/2012 = U Amph Scr) 22:30:38) [facility] CenterVacixvxYKZGOCXMQ7594-90-61 03:30:38 Test Item Value Reference Range Interpretation Comments U Cocaine Scr (test Negative code = U Cocaine Scr) *NA*(12/28/2012 22:30:38) [facility]entonKycpkvrDGGVYHWWUS2261-87-67 03:30:38 Test Item Value Reference Range Interpretation Comments UA Ketones (test code Negative mg/dL = UA Ketones) *NA*(12/28/2012 22:30:38) [facility] DentonYlefvuyCULDTZHABL4122-34-75 03:30:38 Test Item Value Reference Range Interpretation Comments UA Bili (test code = Negative *NA*(12/28/2012 UA Bili) 22:30:38) [facility] HospitalOqtbowpJNGLPCLZAO5912-27-47 03:30:38 Test Item Value Reference Range Interpretation Comments UA Nitrite (test code Negative (12/28/2012 N = UA Nitrite) 22:30:38) [facility] HospitalVvuxsvnXJLWQASALV7213-43-04 03:30:38 Test Item Value Reference Range Interpretation Comments UA Urobilinogen (test code = UA 0.2 0.1-1.0 N Urobilinogen) [facility] HospitalHwtqblkCNJUAUYWQD2943-54-07 03:30:38 Test Item Value Reference Range Interpretation Comments UA Blood (test code = Negative (12/28/2012 N UA Blood) 22:30:38) [facility] DentonXreswojBBPJPQBTIO4902-41-19 03:30:38 Test Item Value Reference Range Interpretation Comments UA Leuk Est (test Negative (12/28/2012 N code = UA Leuk Est) 22:30:38) [facility]entonLcbtzlzVWRRAHMBQS4170-41-80 03:30:38 Test Item Value Reference Range Interpretation Comments UA pH (test code = UA pH) 7.0 1 5.0-8.0 N [facility] HospitalAosmtoyDRRLSVSVFM5634-13-20 03:30:38 Test Item Value Reference Range Interpretation Comments UA Glucose (test code Negative mg/dL N = UA Glucose) (12/28/2012 22:30:38) [facility] HospitalPpwsgpeXTDUKSNJTY8998-96-56 03:30:38 Test Item Value Reference Range Interpretation Comments UA Spec Grav (test code = UA Spec 1.010 1 N Grav) [facility] HospitalKdfxkpeNGDDSKSRPH8620-31-46 03:30:38 Test Item Value Reference Range Interpretation Comments UA Protein (test code Negative mg/dL N = UA Protein) (12/28/2012 22:30:38) [facility] HospitalGmddrjxXPWUHRMGDD1351-31-66 03:30:38 Test Item Value Reference Range Interpretation Comments UA Turbidity (test code = Clear (12/28/2012 N UA Turbidity) 22:30:38) [facility] HospitalNrerevoVATTUCSKPF1308-36-53 03:30:38 Test Item Value Reference Range Interpretation Comments UA Color (test code = Yellow *NA*(12/28/2012 UA Color) 22:30:38) [facility]bergRfizmfcYPAVUVNZH9852-24-47 03:30:38 Test Item Value Reference Range Interpretation Comments UDS Note (test code = See Note 5(12/28/2012 N UDS Note) 22:30:38) [facility] CenterZwldbqrRFNDCYACQ0121-65-33 03:30:38 Test Item Value Reference Range Interpretation Comments U Phencyc Scr (test Negative code = U Phencyc Scr) *NA*(12/28/2012 22:30:38) [facility] CenterRbkmaifNNPAFWJZN5115-91-66 03:30:38 Test Item Value Reference Range Interpretation Comments U Opiate Scr (test Positive A code = U Opiate Scr) *ABN*(12/28/2012 22:30:38) [facility] CenterZpbrfecEDANQKYXZ4645-19-95 03:30:38 Test Item Value Reference Range Interpretation Comments U Cannab Scr (test Negative code = U Cannab Scr) *NA*(12/28/2012 22:30:38) [facility] CenterPdwkjmmCJXNNVEUS8687-11-23 03:30:38 Test Item Value Reference Range Interpretation Comments U Benzodia Scr (test Negative code = U Benzodia Scr) *NA*(12/28/2012 22:30:38) [facility] CenterOheyqjtGTKJELIVQ2292-32-97 03:30:38 Test Item Value Reference Range Interpretation Comments U Odalys Scr (test code Negative *NA*(12/28/2012 = U Odalys Scr) 22:30:38) [facility] CenterTkybjbaRVJOVXWZZ2945-70-37 03:30:38 Test Item Value Reference Range Interpretation Comments U Amph Scr (test code Negative *NA*(12/28/2012 = U Amph Scr) 22:30:38) [facility] CenterNsoienzKZTMMCXTN5054-53-93 03:30:38 Test Item Value Reference Range Interpretation Comments U Cocaine Scr (test Negative code = U Cocaine Scr) *NA*(12/28/2012 22:30:38) [facility]entonHtbmypuWIVLUUTCCN5671-97-96 03:30:38 Test Item Value Reference Range Interpretation Comments UA Ketones (test code Negative mg/dL = UA Ketones) *NA*(12/28/2012 22:30:38) [facility] HospitalHmpwipcQXEYEGIHWM5296-76-16 03:30:38 Test Item Value Reference Range Interpretation Comments UA Bili (test code = Negative *NA*(12/28/2012 UA Bili) 22:30:38) [facility] HospitalHhzqqpwQGPRROGVAB5069-08-71 03:30:38 Test Item Value Reference Range Interpretation Comments UA Nitrite (test code Negative (12/28/2012 N = UA Nitrite) 22:30:38) [facility] HospitalAsmsyugQWRKWOMPAP3883-73-22 03:30:38 Test Item Value Reference Range Interpretation Comments UA Urobilinogen (test code = UA 0.2 0.1-1.0 N Urobilinogen) [facility] HospitalIihadfdSULXKOKTQC3622-08-22 03:30:38 Test Item Value Reference Range Interpretation Comments UA Blood (test code = Negative (12/28/2012 N UA Blood) 22:30:38) [facility] HospitalBxqidxyGRCEJYDUPS1687-80-05 03:30:38 Test Item Value Reference Range Interpretation Comments UA Leuk Est (test Negative (12/28/2012 N code = UA Leuk Est) 22:30:38) [facility]entonHbtdrmvQPFKZLKIGJ3417-29-86 03:30:38 Test Item Value Reference Range Interpretation Comments UA pH (test code = UA pH) 7.0 1 5.0-8.0 N [facility] HospitalKzpotobKUHOFSADHI5856-48-81 03:30:38 Test Item Value Reference Range Interpretation Comments UA Glucose (test code Negative mg/dL N = UA Glucose) (12/28/2012 22:30:38) [facility] HospitalUbvaevoJCAOXRUHZT7858-59-50 03:30:38 Test Item Value Reference Range Interpretation Comments UA Spec Grav (test code = UA Spec 1.010 1 N Grav) [facility] HospitalFgbnmmpSHQMXAWPMD2863-24-92 03:30:38 Test Item Value Reference Range Interpretation Comments UA Protein (test code Negative mg/dL N = UA Protein) (12/28/2012 22:30:38) [facility] HospitalAdwkderOPCDVRLEHZ3973-99-27 03:30:38 Test Item Value Reference Range Interpretation Comments UA Turbidity (test code = Clear (12/28/2012 N UA Turbidity) 22:30:38) [facility] HospitalXfapdvsWQQPWVWXLU1383-38-53 03:30:38 Test Item Value Reference Range Interpretation Comments UA Color (test code = Yellow *NA*(12/28/2012 UA Color) 22:30:38) [facility]bergDraamvdSINNOBRNW9590-08-95 03:30:38 Test Item Value Reference Range Interpretation Comments UDS Note (test code = See Note 5(12/28/2012 N UDS Note) 22:30:38) [facility] CenterDidzijdJKRHGVBRS6001-29-03 03:30:38 Test Item Value Reference Range Interpretation Comments U Phencyc Scr (test Negative code = U Phencyc Scr) *NA*(12/28/2012 22:30:38) [facility] CenterQbulhdqRIBOQGPID6897-04-96 03:30:38 Test Item Value Reference Range Interpretation Comments U Opiate Scr (test Positive A code = U Opiate Scr) *ABN*(12/28/2012 22:30:38) [facility] CenterBgzfbdyRNKLUXDEJ0010-25-27 03:30:38 Test Item Value Reference Range Interpretation Comments U Cannab Scr (test Negative code = U Cannab Scr) *NA*(12/28/2012 22:30:38) [facility] CenterRpqbfakNAYDCCMUI5338-60-02 03:30:38 Test Item Value Reference Range Interpretation Comments U Benzodia Scr (test Negative code = U Benzodia Scr) *NA*(12/28/2012 22:30:38) [facility] CenterNyfdypsUMFYSQINI2884-15-38 03:30:38 Test Item Value Reference Range Interpretation Comments U Odalys Scr (test code Negative *NA*(12/28/2012 = U Odalys Scr) 22:30:38) [facility] CenterPlttdvaKLFNUUDSN4758-17-51 03:30:38 Test Item Value Reference Range Interpretation Comments U Amph Scr (test code Negative *NA*(12/28/2012 = U Amph Scr) 22:30:38) [facility] CenterTcskaatBSMRCRNXX6705-73-44 03:30:38 Test Item Value Reference Range Interpretation Comments U Cocaine Scr (test Negative code = U Cocaine Scr) *NA*(12/28/2012 22:30:38) [facility] DentonUlmmocjSZKIXCFDQM1061-75-89 03:30:38 Test Item Value Reference Range Interpretation Comments UA Ketones (test code Negative mg/dL = UA Ketones) *NA*(12/28/2012 22:30:38) [facility] DentonRwixjpjOVDPQOSAYB8410-24-95 03:30:38 Test Item Value Reference Range Interpretation Comments UA Bili (test code = Negative *NA*(12/28/2012 UA Bili) 22:30:38) [facility] DentonYjpstpsOJFNTDFZIP7287-30-76 03:30:38 Test Item Value Reference Range Interpretation Comments UA Nitrite (test code Negative (12/28/2012 N = UA Nitrite) 22:30:38) [facility] HospitalEebghgsMQIESYDEDD7863-21-78 03:30:38 Test Item Value Reference Range Interpretation Comments UA Urobilinogen (test code = UA 0.2 0.1-1.0 N Urobilinogen) [facility] DentonPtzavvoDNZGWQGSEC6362-38-67 03:30:38 Test Item Value Reference Range Interpretation Comments UA Blood (test code = Negative (12/28/2012 N UA Blood) 22:30:38) [facility] HospitalVbxegveDIGZLVIUST5194-73-62 03:30:38 Test Item Value Reference Range Interpretation Comments UA Leuk Est (test Negative (12/28/2012 N code = UA Leuk Est) 22:30:38) [facility] DentonUwhepvySKOVIUTXRM2568-49-59 03:30:38 Test Item Value Reference Range Interpretation Comments UA pH (test code = UA pH) 7.0 1 5.0-8.0 N [facility] HospitalXwrchrkTQPXOCDWLF4284-55-17 03:30:38 Test Item Value Reference Range Interpretation Comments UA Glucose (test code Negative mg/dL N = UA Glucose) (12/28/2012 22:30:38) [facility] DentonRbkfkyoZKTEZCPSIW4946-90-89 03:30:38 Test Item Value Reference Range Interpretation Comments UA Spec Grav (test code = UA Spec 1.010 1 N Grav) [facility] DentonYujlkeyRYRLJJZTHR3369-85-70 03:30:38 Test Item Value Reference Range Interpretation Comments UA Protein (test code Negative mg/dL N = UA Protein) (12/28/2012 22:30:38) [facility] HospitalFnufgrvZXOFFTFBHO9113-40-93 03:30:38 Test Item Value Reference Range Interpretation Comments UA Turbidity (test code = Clear (12/28/2012 N UA Turbidity) 22:30:38) [facility] HospitalSswdwsjZFDONAGVQT3506-45-62 03:30:38 Test Item Value Reference Range Interpretation Comments UA Color (test code = Yellow *NA*(12/28/2012 UA Color) 22:30:38) [facility] KlebergDocuafdNNGYICMXJ5642-24-39 03:30:38 Test Item Value Reference Range Interpretation Comments UDS Note (test code = See Note 5(12/28/2012 N UDS Note) 22:30:38) [facility] CenterDnvnjpxSUYVEUBJC8222-92-24 03:30:38 Test Item Value Reference Range Interpretation Comments U Phencyc Scr (test Negative code = U Phencyc Scr) *NA*(12/28/2012 22:30:38) [facility] CenterLvlfkhzVMAQUTFPX2252-54-16 03:30:38 Test Item Value Reference Range Interpretation Comments U Opiate Scr (test Positive A code = U Opiate Scr) *ABN*(12/28/2012 22:30:38) [facility] CenterVzdtbldOXPUYOXON6236-13-38 03:30:38 Test Item Value Reference Range Interpretation Comments U Cannab Scr (test Negative code = U Cannab Scr) *NA*(12/28/2012 22:30:38) [facility] CenterMfiptluWNAYELNNL4828-71-21 03:30:38 Test Item Value Reference Range Interpretation Comments U Benzodia Scr (test Negative code = U Benzodia Scr) *NA*(12/28/2012 22:30:38) [facility] CenterTsrjskuIKWXHLJBX3306-94-90 03:30:38 Test Item Value Reference Range Interpretation Comments U Odalys Scr (test code Negative *NA*(12/28/2012 = U Odalys Scr) 22:30:38) [facility] CenterIwyuplmAZSUMHSGC4716-42-00 03:30:38 Test Item Value Reference Range Interpretation Comments U Amph Scr (test code Negative *NA*(12/28/2012 = U Amph Scr) 22:30:38) [facility] CenterGpbfirrICUTFELRQ9835-27-88 03:30:38 Test Item Value Reference Range Interpretation Comments U Cocaine Scr (test Negative code = U Cocaine Scr) *NA*(12/28/2012 22:30:38) [facility]entonSzfjfynRKDRPXJIXR8593-78-24 03:30:38 Test Item Value Reference Range Interpretation Comments UA Ketones (test code Negative mg/dL = UA Ketones) *NA*(12/28/2012 22:30:38) [facility] DentonDkdsfbvCZWFMAULLT9360-14-76 03:30:38 Test Item Value Reference Range Interpretation Comments UA Bili (test code = Negative *NA*(12/28/2012 UA Bili) 22:30:38) [facility] DentonNaobtnnCAMQPPJPQI8147-43-98 03:30:38 Test Item Value Reference Range Interpretation Comments UA Nitrite (test code Negative (12/28/2012 N = UA Nitrite) 22:30:38) [facility] KlebergQmdrmuzBHPSNSXQDU4896-50-53 03:30:38 Test Item Value Reference Range Interpretation Comments UA Urobilinogen (test code = UA 0.2 0.1-1.0 N Urobilinogen) [facility] HospitalWfifpxiVQXQDTNYVQ9257-18-91 03:30:38 Test Item Value Reference Range Interpretation Comments UA Blood (test code = Negative (12/28/2012 N UA Blood) 22:30:38) [facility] KlebergBymiaqdEXKJBHMJJA4247-97-14 03:30:38 Test Item Value Reference Range Interpretation Comments UA Leuk Est (test Negative (12/28/2012 N code = UA Leuk Est) 22:30:38) [facility] HospitalMyqxkrsZRXATPBEPP3377-69-98 03:30:38 Test Item Value Reference Range Interpretation Comments UA pH (test code = UA pH) 7.0 1 5.0-8.0 N [facility] HospitalHzobopaCOUNBGTWAH5504-03-97 03:30:38 Test Item Value Reference Range Interpretation Comments UA Glucose (test code Negative mg/dL N = UA Glucose) (12/28/2012 22:30:38) [facility] KlebergTgpqrfiYZJJYMFOZL9505-09-42 03:30:38 Test Item Value Reference Range Interpretation Comments UA Spec Grav (test code = UA Spec 1.010 1 N Grav) [facility] DentonDssqpskWKPXPXRYRX8804-13-65 03:30:38 Test Item Value Reference Range Interpretation Comments UA Protein (test code Negative mg/dL N = UA Protein) (12/28/2012 22:30:38) [facility] KlebergTaazmsgPOHBGXNFJX2361-83-28 03:30:38 Test Item Value Reference Range Interpretation Comments UA Turbidity (test code = Clear (12/28/2012 N UA Turbidity) 22:30:38) [facility] HospitalItzphpgDVXAIGQRQZ9439-94-89 03:30:38 Test Item Value Reference Range Interpretation Comments UA Color (test code = Yellow *NA*(12/28/2012 UA Color) 22:30:38) [facility] KlebergJaqyozlBOREZLTXN1932-35-29 03:30:38 Test Item Value Reference Range Interpretation Comments UDS Note (test code = See Note 5(12/28/2012 N UDS Note) 22:30:38) [facility] CenterGucqucsZZZEDQBXP8117-39-53 03:30:38 Test Item Value Reference Range Interpretation Comments U Phencyc Scr (test Negative code = U Phencyc Scr) *NA*(12/28/2012 22:30:38) [facility] CenterZejdrroDKCIRUEUX1159-49-91 03:30:38 Test Item Value Reference Range Interpretation Comments U Opiate Scr (test Positive A code = U Opiate Scr) *ABN*(12/28/2012 22:30:38) [facility] CenterGnruyzyKBBGSUCVN8140-25-73 03:30:38 Test Item Value Reference Range Interpretation Comments U Cannab Scr (test Negative code = U Cannab Scr) *NA*(12/28/2012 22:30:38) [facility] CenterGxzlnzqTKQTDMQZS6121-25-44 03:30:38 Test Item Value Reference Range Interpretation Comments U Benzodia Scr (test Negative code = U Benzodia Scr) *NA*(12/28/2012 22:30:38) [facility] CenterSzcfwlhKEYHLILJP5130-93-34 03:30:38 Test Item Value Reference Range Interpretation Comments U Odalys Scr (test code Negative *NA*(12/28/2012 = U Odalys Scr) 22:30:38) [facility] CenterLmsrjadYYHOFXKLG7471-66-43 03:30:38 Test Item Value Reference Range Interpretation Comments U Amph Scr (test code Negative *NA*(12/28/2012 = U Amph Scr) 22:30:38) [facility] CenterXwdyqxrLCIOTHPFL9759-18-15 03:30:38 Test Item Value Reference Range Interpretation Comments U Cocaine Scr (test Negative code = U Cocaine Scr) *NA*(12/28/2012 22:30:38) [facility] DentonIjviqxjIPZYRWYXAJ6196-73-89 03:30:38 Test Item Value Reference Range Interpretation Comments UA Ketones (test code Negative mg/dL = UA Ketones) *NA*(12/28/2012 22:30:38) [facility] DentonIgbcwhgKRPRNFBYOE4519-18-93 03:30:38 Test Item Value Reference Range Interpretation Comments UA Bili (test code = Negative *NA*(12/28/2012 UA Bili) 22:30:38) [facility] DentonYtrotwoJFSJNELLLX5588-12-88 03:30:38 Test Item Value Reference Range Interpretation Comments UA Nitrite (test code Negative (12/28/2012 N = UA Nitrite) 22:30:38) [facility] DentonUposeytYWIQAOBTPR1977-00-21 03:30:38 Test Item Value Reference Range Interpretation Comments UA Urobilinogen (test code = UA 0.2 0.1-1.0 N Urobilinogen) [facility] DentonGrbrjzvRDEUINNGJI1803-56-70 03:30:38 Test Item Value Reference Range Interpretation Comments UA Blood (test code = Negative (12/28/2012 N UA Blood) 22:30:38) [facility] DentonOstmrapWRRGCRHDPU4376-89-60 03:30:38 Test Item Value Reference Range Interpretation Comments UA Leuk Est (test Negative (12/28/2012 N code = UA Leuk Est) 22:30:38) [facility] DentonNyzajztTEIQURDSGQ0178-29-57 03:30:38 Test Item Value Reference Range Interpretation Comments UA pH (test code = UA pH) 7.0 1 5.0-8.0 N [facility] DentonGoefalnDQUHOJTALJ8671-62-72 03:30:38 Test Item Value Reference Range Interpretation Comments UA Glucose (test code Negative mg/dL N = UA Glucose) (12/28/2012 22:30:38) [facility] DentonFrlucleVXOKIEPOQO2314-37-93 03:30:38 Test Item Value Reference Range Interpretation Comments UA Spec Grav (test code = UA Spec 1.010 1 N Grav) [facility] DentonAlptarfRZIHPQAQBG2868-60-98 03:30:38 Test Item Value Reference Range Interpretation Comments UA Protein (test code Negative mg/dL N = UA Protein) (12/28/2012 22:30:38) [facility] DentonRlgfcozYQVRESUASH4201-79-43 03:30:38 Test Item Value Reference Range Interpretation Comments UA Turbidity (test code = Clear (12/28/2012 N UA Turbidity) 22:30:38) [facility] DentonFerlfqcJCIPCKDBVC4159-70-46 03:30:38 Test Item Value Reference Range Interpretation Comments UA Color (test code = Yellow *NA*(12/28/2012 UA Color) 22:30:38) [facility] CenterTnqowczSABEMFLSJ6421-56-73 03:30:38 Test Item Value Reference Range Interpretation Comments UDS Note (test code = See Note 5(12/28/2012 N UDS Note) 22:30:38) [facility] CenterFjwokxvNSVJPYNJD0436-99-10 03:30:38 Test Item Value Reference Range Interpretation Comments U Phencyc Scr (test Negative code = U Phencyc Scr) *NA*(12/28/2012 22:30:38) [facility] CenterDqqfvqtFWATMARRU0531-96-87 03:30:38 Test Item Value Reference Range Interpretation Comments U Opiate Scr (test Positive A code = U Opiate Scr) *ABN*(12/28/2012 22:30:38) [facility]KtzziyrZZTTXXUTR5352-25-27 03:30:38 Test Item Value Reference Range Interpretation Comments U Cannab Scr (test Negative code = U Cannab Scr) *NA*(12/28/2012 22:30:38) [facility] CenterSnjsfqkXLFMFHPFV1445-98-33 03:30:38 Test Item Value Reference Range Interpretation Comments U Benzodia Scr (test Negative code = U Benzodia Scr) *NA*(12/28/2012 22:30:38) [facility] CenterNnkmghvKOCONUNHC7364-43-89 03:30:38 Test Item Value Reference Range Interpretation Comments U Odalys Scr (test code Negative *NA*(12/28/2012 = U Odalys Scr) 22:30:38) [facility] CenterZyyfuokCAZICKVOS6453-53-56 03:30:38 Test Item Value Reference Range Interpretation Comments U Amph Scr (test code Negative *NA*(12/28/2012 = U Amph Scr) 22:30:38) [facility] CenterOhdtspxKOVHVLOBZ0316-49-41 03:30:38 Test Item Value Reference Range Interpretation Comments U Cocaine Scr (test Negative code = U Cocaine Scr) *NA*(12/28/2012 22:30:38) [facility]LfhapqfNSPPNIYZHT8083-40-94 03:30:38 Test Item Value Reference Range Interpretation Comments UA Ketones (test code Negative mg/dL = UA Ketones) *NA*(12/28/2012 22:30:38) [facility]IqjcilgROQTYQKHVD9129-24-14 03:30:38 Test Item Value Reference Range Interpretation Comments UA Bili (test code = Negative *NA*(12/28/2012 UA Bili) 22:30:38) [facility] HospitalUfsscunXSPVESZVXM6585-10-51 03:30:38 Test Item Value Reference Range Interpretation Comments UA Nitrite (test code Negative (12/28/2012 N = UA Nitrite) 22:30:38) [facility] DentonFslnkhzTJADUTRNFO3019-27-04 03:30:38 Test Item Value Reference Range Interpretation Comments UA Urobilinogen (test code = UA 0.2 0.1-1.0 N Urobilinogen) [facility] DentonEcfkyveDXCGPNXDBM7433-96-75 03:30:38 Test Item Value Reference Range Interpretation Comments UA Blood (test code = Negative (12/28/2012 N UA Blood) 22:30:38) [facility] DentonFejaqasZUWNATBCHT6599-44-10 03:30:38 Test Item Value Reference Range Interpretation Comments UA Leuk Est (test Negative (12/28/2012 N code = UA Leuk Est) 22:30:38) [facility] DentonMcjnstvSELSENWCGJ2291-98-58 03:30:38 Test Item Value Reference Range Interpretation Comments UA pH (test code = UA pH) 7.0 1 5.0-8.0 N [facility] DentonJogommhGUYQXIMVLT6729-49-80 03:30:38 Test Item Value Reference Range Interpretation Comments UA Glucose (test code Negative mg/dL N = UA Glucose) (12/28/2012 22:30:38) [facility] DentonOwmkzqiRREPTSNIPV4326-25-05 03:30:38 Test Item Value Reference Range Interpretation Comments UA Spec Grav (test code = UA Spec 1.010 1 N Grav) [facility] DentonHbhxajpFOCMTIAWNZ6383-63-75 03:30:38 Test Item Value Reference Range Interpretation Comments UA Protein (test code Negative mg/dL N = UA Protein) (12/28/2012 22:30:38) [facility] DentonPsesywmYWDRFOZXXY2967-25-44 03:30:38 Test Item Value Reference Range Interpretation Comments UA Turbidity (test code = Clear (12/28/2012 N UA Turbidity) 22:30:38) [facility] DentonBsjektaENWAENLBON2430-60-14 03:30:38 Test Item Value Reference Range Interpretation Comments UA Color (test code = Yellow *NA*(12/28/2012 UA Color) 22:30:38) [facility] CenterLvdyepbNLLLYYAXO9416-30-78 03:30:38 Test Item Value Reference Range Interpretation Comments UDS Note (test code = See Note 5(12/28/2012 N UDS Note) 22:30:38) [facility] CenterLtapfuyWPKFLMERL0464-91-67 03:30:38 Test Item Value Reference Range Interpretation Comments U Phencyc Scr (test Negative code = U Phencyc Scr) *NA*(12/28/2012 22:30:38) [facility] CenterIuozwagGMRIJPRFS7850-64-23 03:30:38 Test Item Value Reference Range Interpretation Comments U Opiate Scr (test Positive A code = U Opiate Scr) *ABN*(12/28/2012 22:30:38) [facility] CenterVrahuduOKWOAOTLF4092-60-73 03:30:38 Test Item Value Reference Range Interpretation Comments U Cannab Scr (test Negative code = U Cannab Scr) *NA*(12/28/2012 22:30:38) [facility] CenterJvixsklWXVIDOCTZ3735-88-43 03:30:38 Test Item Value Reference Range Interpretation Comments U Benzodia Scr (test Negative code = U Benzodia Scr) *NA*(12/28/2012 22:30:38) [facility] CenterGskdiycPDQUUWUOI6911-24-35 03:30:38 Test Item Value Reference Range Interpretation Comments U Odalys Scr (test code Negative *NA*(12/28/2012 = U Odalys Scr) 22:30:38) [facility] CenterBjahhqrQDBVBSAVQ8285-90-05 03:30:38 Test Item Value Reference Range Interpretation Comments U Amph Scr (test code Negative *NA*(12/28/2012 = U Amph Scr) 22:30:38) [facility] CenterXnviwpqWPJAFQGEB0732-25-73 03:30:38 Test Item Value Reference Range Interpretation Comments U Cocaine Scr (test Negative code = U Cocaine Scr) *NA*(12/28/2012 22:30:38) [facility] HospitalWwvadwoFQYAOCKXZI6024-85-41 03:30:38 Test Item Value Reference Range Interpretation Comments UA Ketones (test code Negative mg/dL = UA Ketones) *NA*(12/28/2012 22:30:38) [facility]bergMxlbisnPVRDTEHZJQ1659-33-77 03:30:38 Test Item Value Reference Range Interpretation Comments UA Bili (test code = Negative *NA*(12/28/2012 UA Bili) 22:30:38) [facility] HospitalXrpavuiEOFMXYICOG1114-25-34 03:30:38 Test Item Value Reference Range Interpretation Comments UA Nitrite (test code Negative (12/28/2012 N = UA Nitrite) 22:30:38) [facility]zqonjgJUIKPNPGAB3725-17-80 03:30:38 Test Item Value Reference Range Interpretation Comments UA Urobilinogen (test code = UA 0.2 0.1-1.0 N Urobilinogen) [facility] DentonPeaodzdAVRVNWXPEJ9101-62-39 03:30:38 Test Item Value Reference Range Interpretation Comments UA Blood (test code = Negative (12/28/2012 N UA Blood) 22:30:38) [facility] DentonRerxhdzBYXALFDWGO2427-86-56 03:30:38 Test Item Value Reference Range Interpretation Comments UA Leuk Est (test Negative (12/28/2012 N code = UA Leuk Est) 22:30:38) [facility] DentonWbqtwdzVECQATUJYW7220-11-27 03:30:38 Test Item Value Reference Range Interpretation Comments UA pH (test code = UA pH) 7.0 1 5.0-8.0 N [facility] DentonIvarkffOEEBNZDTQM0978-68-91 03:30:38 Test Item Value Reference Range Interpretation Comments UA Glucose (test code Negative mg/dL N = UA Glucose) (12/28/2012 22:30:38) [facility] DentonDsbhhigAJRGSDNSCT1854-89-90 03:30:38 Test Item Value Reference Range Interpretation Comments UA Spec Grav (test code = UA Spec 1.010 1 N Grav) [facility] DentonRiewlosQYRWLQSHMT1235-02-99 03:30:38 Test Item Value Reference Range Interpretation Comments UA Protein (test code Negative mg/dL N = UA Protein) (12/28/2012 22:30:38) [facility] DentonBhgagmzUAFVEBNXNC9757-16-53 03:30:38 Test Item Value Reference Range Interpretation Comments UA Turbidity (test code = Clear (12/28/2012 N UA Turbidity) 22:30:38) [facility] DentonFvdyspsYHYZUHKMID0483-78-34 03:30:38 Test Item Value Reference Range Interpretation Comments UA Color (test code = Yellow *NA*(12/28/2012 UA Color) 22:30:38) [facility] CenterUpbgvyiJAHPFNGUM5718-42-82 03:30:38 Test Item Value Reference Range Interpretation Comments UDS Note (test code = See Note 5(12/28/2012 N UDS Note) 22:30:38) [facility] CenterJghaizpRVUUHTWMT5481-01-93 03:30:38 Test Item Value Reference Range Interpretation Comments U Phencyc Scr (test Negative code = U Phencyc Scr) *NA*(12/28/2012 22:30:38) [facility] CenterUeewyevLNYJCRXZP3343-36-01 03:30:38 Test Item Value Reference Range Interpretation Comments U Opiate Scr (test Positive A code = U Opiate Scr) *ABN*(12/28/2012 22:30:38) [facility] CenterDluufzdMBXOFRUZM1824-58-19 03:30:38 Test Item Value Reference Range Interpretation Comments U Cannab Scr (test Negative code = U Cannab Scr) *NA*(12/28/2012 22:30:38) [facility] CenterBgdctahVFFWFHQLI8037-25-61 03:30:38 Test Item Value Reference Range Interpretation Comments U Benzodia Scr (test Negative code = U Benzodia Scr) *NA*(12/28/2012 22:30:38) [facility] CenterXkaakemOSDNBJQBR6762-36-07 03:30:38 Test Item Value Reference Range Interpretation Comments U Odalys Scr (test code Negative *NA*(12/28/2012 = U Odalys Scr) 22:30:38) [facility] CenterSwboysmXHWFFQFRQ1812-74-31 03:30:38 Test Item Value Reference Range Interpretation Comments U Amph Scr (test code Negative *NA*(12/28/2012 = U Amph Scr) 22:30:38) [facility] CenterOlzlvolDSDTESNFT7418-68-73 03:30:38 Test Item Value Reference Range Interpretation Comments U Cocaine Scr (test Negative code = U Cocaine Scr) *NA*(12/28/2012 22:30:38) [facility] DentonOpljrnjHIHQKOIHZD4645-85-88 03:30:38 Test Item Value Reference Range Interpretation Comments UA Ketones (test code Negative mg/dL = UA Ketones) *NA*(12/28/2012 22:30:38) [facility] DentonBxkocupPZLUECGFXW4749-92-43 03:30:38 Test Item Value Reference Range Interpretation Comments UA Bili (test code = Negative *NA*(12/28/2012 UA Bili) 22:30:38) [facility] DentonMtihqkvTTPUMDBSBH1570-37-50 03:30:38 Test Item Value Reference Range Interpretation Comments UA Nitrite (test code Negative (12/28/2012 N = UA Nitrite) 22:30:38) [facility] DentonSevqyisHLCPBFBGLC8952-76-43 03:30:38 Test Item Value Reference Range Interpretation Comments UA Urobilinogen (test code = UA 0.2 0.1-1.0 N Urobilinogen) [facility] DentonMiicbpkWGDSPAZTRN7716-55-10 03:30:38 Test Item Value Reference Range Interpretation Comments UA Blood (test code = Negative (12/28/2012 N UA Blood) 22:30:38) [facility] DentonTuyoulcKFLQURZQSI0361-22-77 03:30:38 Test Item Value Reference Range Interpretation Comments UA Leuk Est (test Negative (12/28/2012 N code = UA Leuk Est) 22:30:38) [facility] DentonBpuseefHSUNYUDJGH4283-23-70 03:30:38 Test Item Value Reference Range Interpretation Comments UA pH (test code = UA pH) 7.0 1 5.0-8.0 N [facility] DentonWiudlkwXVVGPORCST6685-53-42 03:30:38 Test Item Value Reference Range Interpretation Comments UA Glucose (test code Negative mg/dL N = UA Glucose) (12/28/2012 22:30:38) [facility] DentonHulgfapTSHCCKZWWI1476-23-06 03:30:38 Test Item Value Reference Range Interpretation Comments UA Spec Grav (test code = UA Spec 1.010 1 N Grav) [facility] DentonIasjordOFYFTZHJRV0083-17-99 03:30:38 Test Item Value Reference Range Interpretation Comments UA Protein (test code Negative mg/dL N = UA Protein) (12/28/2012 22:30:38) [facility] DentonYwnmxxiNIVJMLJFZW1555-63-07 03:30:38 Test Item Value Reference Range Interpretation Comments UA Turbidity (test code = Clear (12/28/2012 N UA Turbidity) 22:30:38) [facility] DentonHenjfqtOBQQTWYKUR2768-06-53 03:30:38 Test Item Value Reference Range Interpretation Comments UA Color (test code = Yellow *NA*(12/28/2012 UA Color) 22:30:38) [facility] DentonDqjhvdeBJGDRNAOWT8960-61-02 03:30:21 Test Item Value Reference Range Interpretation Comments UA Bacteria (test code = None Seen (12/28/2012 N UA Bacteria) 22:30:21) [facility] DentonFggvlssVRBDNEMRVL9106-41-20 03:30:21 Test Item Value Reference Range Interpretation Comments Micro? (test code = Performed (12/28/2012 N Micro?) 22:30:21) [facility] LancasterEepfwbuOBGMPLXNWH6243-04-82 03:30:21 Test Item Value Reference Range Interpretation Comments UA Sq Epi (test code = None Seen (12/28/2012 N UA Sq Epi) 22:30:21) [facility] LancasterQrzqdjxSPSKPZBQBQ3632-94-34 03:30:21 Test Item Value Reference Range Interpretation Comments UA WBC (test code = UA 0-2 /HPF (12/28/2012 N WBC) 22:30:21) [facility] LancasterHbyteseMNCYUWQJEW8756-75-44 03:30:21 Test Item Value Reference Range Interpretation Comments UA RBC (test None Seen See_Comment N [Automated mes olga] code = UA RBC) (12/28/2012 The system ich 22:30:21) generated this result transmitted ref erence range: <=2. The reference range was not used to int erpret this result as normal/abnormal . [facility] LancasterOdultdvQULNOSSEUP1663-53-30 03:30:21 Test Item Value Reference Range Interpretation Comments UA Bacteria (test code = None Seen (12/28/2012 N UA Bacteria) 22:30:21) [facility]bergDeshtagQZVLJPFQWY1942-49-35 03:30:21 Test Item Value Reference Range Interpretation Comments Micro? (test code = Performed (12/28/2012 N Micro?) 22:30:21) [facility] LancasterNtvsaauFJIBUMRSIA8097-92-07 03:30:21 Test Item Value Reference Range Interpretation Comments UA Sq Epi (test code = None Seen (12/28/2012 N UA Sq Epi) 22:30:21) [facility] LancasterSohfvxbSGHSHMKSEJ4346-86-20 03:30:21 Test Item Value Reference Range Interpretation Comments UA WBC (test code = UA 0-2 /HPF (12/28/2012 N WBC) 22:30:21) [facility] KlebergRnpuukaRXDTNFWQFY0444-52-71 03:30:21 Test Item Value Reference Range Interpretation Comments UA RBC (test None Seen See_Comment N [Automated mes olga] code = UA RBC) (12/28/2012 The system ich 22:30:21) generated this result transmitted ref erence range: <=2. The reference range was not used to int erpret this result as normal/abnormal . [facility] KlebergEtgycxvOYLCGQTBSF4601-46-39 03:30:21 Test Item Value Reference Range Interpretation Comments UA Bacteria (test code = None Seen (12/28/2012 N UA Bacteria) 22:30:21) [facility] LancasterPfxrtraHUXGFDJODJ0977-79-57 03:30:21 Test Item Value Reference Range Interpretation Comments Micro? (test code = Performed (12/28/2012 N Micro?) 22:30:21) [facility] KlebergJgrwfbvQAKUCEFDXS4496-01-21 03:30:21 Test Item Value Reference Range Interpretation Comments UA Sq Epi (test code = None Seen (12/28/2012 N UA Sq Epi) 22:30:21) [facility] LancasterWchiqedGORKZRMLXG8526-45-91 03:30:21 Test Item Value Reference Range Interpretation Comments UA WBC (test code = UA 0-2 /HPF (12/28/2012 N WBC) 22:30:21) [facility] KlebergKhckvbwGJVAQWVSNA8219-67-43 03:30:21 Test Item Value Reference Range Interpretation Comments UA RBC (test None Seen See_Comment N [Automated mes olga] code = UA RBC) (12/28/2012 The system [facility] 22:30:21) generated this result transmitted ref erence range: <=2. The reference range was not used to int erpret this result as normal/abnormal . [facility] LancasterMesztqkWTGJXCVINF1465-64-80 03:30:21 Test Item Value Reference Range Interpretation Comments UA Bacteria (test code = None Seen (12/28/2012 N UA Bacteria) 22:30:21) [facility]SzzwensSYBWOPPOBB9032-50-69 03:30:21 Test Item Value Reference Range Interpretation Comments Micro? (test code = Performed (12/28/2012 N Micro?) 22:30:21) [facility] KlebergJkzfacxHQOCBTILBV1685-51-05 03:30:21 Test Item Value Reference Range Interpretation Comments UA Sq Epi (test code = None Seen (12/28/2012 N UA Sq Epi) 22:30:21) [facility] LancasterMewfpiuUZIANVJHPI5112-77-15 03:30:21 Test Item Value Reference Range Interpretation Comments UA WBC (test code = UA 0-2 /HPF (12/28/2012 N WBC) 22:30:21) [facility] KlebergPyvfbtpQTLQOXKWZB5291-11-07 03:30:21 Test Item Value Reference Range Interpretation Comments UA RBC (test None Seen See_Comment N [Automated mes olga] code = UA RBC) (12/28/2012 The system ich 22:30:21) generated this result transmitted ref erence range: <=2. The reference range was not used to int erpret this result as normal/abnormal . [facility] OmyyykzAHKYGRXKDN9927-10-48 03:30:21 Test Item Value Reference Range Interpretation Comments UA Bacteria (test code = None Seen (12/28/2012 N UA Bacteria) 22:30:21) [facility] LancasterTnzcmswQOJUZYBSMQ0951-48-37 03:30:21 Test Item Value Reference Range Interpretation Comments Micro? (test code = Performed (12/28/2012 N Micro?) 22:30:21) [facility] LancasterBwdbzegFQHHTVHWVJ6109-36-36 03:30:21 Test Item Value Reference Range Interpretation Comments UA Sq Epi (test code = None Seen (12/28/2012 N UA Sq Epi) 22:30:21) [facility] LancasterQpjnxnlOAEISFDWNR8521-07-17 03:30:21 Test Item Value Reference Range Interpretation Comments UA WBC (test code = UA 0-2 /HPF (12/28/2012 N WBC) 22:30:21) [facility] LancasterJrjuprlHJMKSNCWHD3873-64-27 03:30:21 Test Item Value Reference Range Interpretation Comments UA RBC (test None Seen See_Comment N [Automated mes olga] code = UA RBC) (12/28/2012 The system [facility] 22:30:21) generated this result transmitted ref erence range: <=2. The reference range was not used to int erpret this result as normal/abnormal . [facility] SmdwakmSMIDWLZEVM0390-09-75 03:30:21 Test Item Value Reference Range Interpretation Comments UA Bacteria (test code = None Seen (12/28/2012 N UA Bacteria) 22:30:21) [facility] LancasterTgawefdCGTCVSNCGB4078-29-64 03:30:21 Test Item Value Reference Range Interpretation Comments Micro? (test code = Performed (12/28/2012 N Micro?) 22:30:21) [facility] LancasterFimkyuiIGKJZIHJWQ0214-92-88 03:30:21 Test Item Value Reference Range Interpretation Comments UA Sq Epi (test code = None Seen (12/28/2012 N UA Sq Epi) 22:30:21) [facility] LancasterKgyfqfyHSPJDLJXPU7347-53-67 03:30:21 Test Item Value Reference Range Interpretation Comments UA WBC (test code = UA 0-2 /HPF (12/28/2012 N WBC) 22:30:21) [facility] LancasterKtefwmfNZQKTZXXGU0853-81-98 03:30:21 Test Item Value Reference Range Interpretation Comments UA RBC (test None Seen See_Comment N [Automated mes olga] code = UA RBC) (12/28/2012 The system ich 22:30:21) generated this result transmitted ref erence range: <=2. The reference range was not used to int erpret this result as normal/abnormal . [facility] LancasterFzdwrlgVGTYKFVZTA5818-84-80 03:30:21 Test Item Value Reference Range Interpretation Comments UA Bacteria (test code = None Seen (12/28/2012 N UA Bacteria) 22:30:21) [facility] HospitalVfuutmiOZJCGYTFNX1352-36-84 03:30:21 Test Item Value Reference Range Interpretation Comments Micro? (test code = Performed (12/28/2012 N Micro?) 22:30:21) [facility] LancasterDxngvylZRBPLQJZTE6193-35-36 03:30:21 Test Item Value Reference Range Interpretation Comments UA Sq Epi (test code = None Seen (12/28/2012 N UA Sq Epi) 22:30:21) [facility] LancasterVwtzeoyYFEMAFMXWR6498-45-99 03:30:21 Test Item Value Reference Range Interpretation Comments UA WBC (test code = UA 0-2 /HPF (12/28/2012 N WBC) 22:30:21) [facility] LancasterCefizniWAGCRAZBFY7298-93-64 03:30:21 Test Item Value Reference Range Interpretation Comments UA RBC (test None Seen See_Comment N [Automated mes olga] code = UA RBC) (12/28/2012 The system ich 22:30:21) generated this result transmitted ref erence range: <=2. The reference range was not used to int erpret this result as normal/abnormal . [facility] LancasterQjlzddtJIVDSXBOXN2799-50-93 03:30:21 Test Item Value Reference Range Interpretation Comments UA Bacteria (test code = None Seen (12/28/2012 N UA Bacteria) 22:30:21) [facility] HospitalGvkusxuZFWERGGQCC8975-73-93 03:30:21 Test Item Value Reference Range Interpretation Comments Micro? (test code = Performed (12/28/2012 N Micro?) 22:30:21) [facility] LancasterTokoaqhJKTUYBBXIM7578-24-05 03:30:21 Test Item Value Reference Range Interpretation Comments UA Sq Epi (test code = None Seen (12/28/2012 N UA Sq Epi) 22:30:21) [facility] LancasterUnvpihhBMATHKXGFE0454-50-89 03:30:21 Test Item Value Reference Range Interpretation Comments UA WBC (test code = UA 0-2 /HPF (12/28/2012 N WBC) 22:30:21) [facility] LancasterLfiywoeFNGITLDLTI0434-10-01 03:30:21 Test Item Value Reference Range Interpretation Comments UA RBC (test None Seen See_Comment N [Automated mes olga] code = UA RBC) (12/28/2012 The system ich 22:30:21) generated this result transmitted ref erence range: <=2. The reference range was not used to int erpret this result as normal/abnormal . [facility] LancasterXzckbliXMAHCNZRRJ4494-31-98 03:30:21 Test Item Value Reference Range Interpretation Comments UA Bacteria (test code = None Seen (12/28/2012 N UA Bacteria) 22:30:21) [facility] LancasterKfmaxtoUPMPJPAEGI9555-29-66 03:30:21 Test Item Value Reference Range Interpretation Comments Micro? (test code = Performed (12/28/2012 N Micro?) 22:30:21) [facility] KlebergEufqliaMXXSLPESLO9644-15-82 03:30:21 Test Item Value Reference Range Interpretation Comments UA Sq Epi (test code = None Seen (12/28/2012 N UA Sq Epi) 22:30:21) [facility] LancasterAmykifiWJHUYYRNLM4319-39-93 03:30:21 Test Item Value Reference Range Interpretation Comments UA WBC (test code = UA 0-2 /HPF (12/28/2012 N WBC) 22:30:21) [facility] LancasterAfzbhfgWOGOHJLOWE0098-31-17 03:30:21 Test Item Value Reference Range Interpretation Comments UA RBC (test None Seen See_Comment N [Automated mes olga] code = UA RBC) (12/28/2012 The system ich 22:30:21) generated this result transmitted ref erence range: <=2. The reference range was not used to int erpret this result as normal/abnormal . [facility] [employer] [id number] 02:00:00 Test Item Value Reference Range Interpretation Comments ABO/Rh (test code = ABO/Rh) B NEG [facility] [employer]CAM[employer] [id number] 02:00:00 Test Item Value Reference Range Interpretation Comments Antibody Scrn (test Negative (12/28/2012 N code = Antibody Scrn) 21:00:00) [facility] LancasterDroid system master KKBYFSZ2284-62-06 02:00:00 Test Item Value Reference Range Interpretation Comments ABO/Rh (test code = ABO/Rh) B NEG [facility] [employer] [id number] 02:00:00 Test Item Value Reference Range Interpretation Comments Antibody Scrn (test Negative (12/28/2012 N code = Antibody Scrn) 21:00:00) [facility] [employer] [id number] 02:00:00 Test Item Value Reference Range Interpretation Comments ABO/Rh (test code = ABO/Rh) B [facility] [employer]OS[employer] [id number] 02:00:00 Test Item Value Reference Range Interpretation Comments Antibody Scrn (test Negative (12/28/2012 N code = Antibody Scrn) 21:00:00) [facility] [employer] [id number] 02:00:00 Test Item Value Reference Range Interpretation Comments ABO/Rh (test code = ABO/Rh) B NEG [facility] [employer] [id number] 02:00:00 Test Item Value Reference Range Interpretation Comments Antibody Scrn (test Negative (12/28/2012 N code = Antibody Scrn) 21:00:00) [facility] [employer] [id number] 02:00:00 Test Item Value Reference Range Interpretation Comments ABO/Rh (test code = ABO/Rh) B NEG [facility] [employer] [id number] 02:00:00 Test Item Value Reference Range Interpretation Comments Antibody Scrn (test Negative (12/28/2012 N code = Antibody Scrn) 21:00:00) [facility] LancasterVoodooV[employer] [facility] [id number] 02:00:00 Test Item Value Reference Range Interpretation Comments ABO/Rh (test code = ABO/Rh) B NEG [facility] [employer] [id number] 02:00:00 Test Item Value Reference Range Interpretation Comments Antibody Scrn (test Negative (12/28/2012 N code = Antibody Scrn) 21:00:00) [employer] [id number] 02:00:00 Test Item Value Reference Range Interpretation Comments ABO/Rh (test code = ABO/Rh) B NEG [facility] HERCAMOSHOP [id number] 02:00:00 Test Item Value Reference Range Interpretation Comments Antibody Scrn (test Negative (12/28/2012 N code = Antibody Scrn) 21:00:00) [facility] HERCAMOSHOP ICUJHNM5627-60-77 02:00:00 Test Item Value Reference Range Interpretation Comments ABO/Rh (test code = ABO/Rh) B NEG [facility] HERCAM[facility] [id number] 02:00:00 Test Item Value Reference Range Interpretation Comments Antibody Scrn (test Negative (12/28/2012 N code = Antibody Scrn) 21:00:00) [employer] [id number] 02:00:00 Test Item Value Reference Range Interpretation Comments ABO/Rh (test code = ABO/Rh) B NEG [facility]CAM[facility] [id number] 02:00:00 Test Item Value Reference Range Interpretation Comments Antibody Scrn (test Negative (12/28/2012 N code = Antibody Scrn) 21:00:00) [facility] NeromqjBSSZNVSJH8262-69-85 01:56:00 Test Item Value Reference Range Interpretation Comments O2 Sat Frankie (test code = O2 Sat Frankie) 84.6 40.0-70.0 H [facility] TlaokniRRINPHBNF4549-81-11 01:56:00 Test Item Value Reference Range Interpretation Comments Temp Frankie (test code = Temp Frankie) 37.0 [facility] WsdpnyiQMFTDTGSN4171-13-84 01:56:00 Test Item Value Reference Range Interpretation Comments BE Frankie (test code = -4 See_Comment L [Automa abdelrahman message] The BE Frankie) system which ge nerated this result transmit abdelrahman reference range : <=2. The reference range was not used to interpr et this result as gurpreet l/abnormal. [facility] GwqdmkzLHARIZQYP3533-76-22 01:56:00 Test Item Value Reference Range Interpretation Comments HCO3 Frankie (test code = HCO3 Frankie) 20 22-26 L [facility] CyglrbnKBWDUGOJM7140-47-55 01:56:00 Test Item Value Reference Range Interpretation Comments pO2 Frankie (test code = pO2 Frankie) 49 20-49 N [facility] CenterCndddjxQZGKLSPVT5898-92-99 01:56:00 Test Item Value Reference Range Interpretation Comments pH Frankie (test code = pH Frankie) 7.41 7.28-7.42 N [facility] CenterAfzolbzXXKDVPJFX2881-09-09 01:56:00 Test Item Value Reference Range Interpretation Comments pCO2 Frankie (test code = pCO2 Frankie) 31 38-52 L [facility] CenterLtntctbEIGUDHPIF7560-09-97 01:56:00 Test Item Value Reference Range Interpretation Comments Lactic Acid Lvl (test code = Lactic 4.4 0.5-2.2 H Acid Lvl) [facility] CenterHcsmczoWNPQHNUNG0816-65-09 01:56:00 Test Item Value Reference Range Interpretation Comments Ethanol Lvl (test code = Ethanol Lvl) 79 [facility] CenterXbmmagbHPNBGKFAH5177-29-68 01:56:00 Test Item Value Reference Range Interpretation Comments Etoh (%) (test code = Etoh (%)) 0.079 [facility] CenterMlejgclNXHCDEBZJ6232-97-25 01:56:00 Test Item Value Reference Range Interpretation Comments eGFR (test code = eGFR) 93 [facility] CenterIzxqalxLTVSJVZAX5581-03-77 01:56:00 Test Item Value Reference Range Interpretation Comments BUN (test code = BUN) 6 7-22 L [facility] CenterSpmgswfWCJDDOHEN5267-31-60 01:56:00 Test Item Value Reference Range Interpretation Comments Creatinine Lvl (test code = Creatinine 1.1 0.5-1.4 N Lvl) [facility] CenterIeygiogXSOZEPVOJ3495-03-90 01:56:00 Test Item Value Reference Range Interpretation Comments Glucose Lvl (test code = Glucose Lvl) 124 70-99 H [facility] CenterHnbahrqDRJTYHDAJ6284-30-62 01:56:00 Test Item Value Reference Range Interpretation Comments Sodium Lvl (test code = Sodium Lvl) 140 135-145 N [facility] CenterStxaovvTFAVTAGFA9960-48-59 01:56:00 Test Item Value Reference Range Interpretation Comments Chloride Lvl (test code = Chloride Lvl) 103 95-109 N [facility] CenterPxhrfytXWDSKIAUN7089-45-14 01:56:00 Test Item Value Reference Range Interpretation Comments CO2 (test code = CO2) 21 24-32 L [facility] CenterBfgebsqEHBMNTUZH6743-15-28 01:56:00 Test Item Value Reference Range Interpretation Comments Potassium Lvl (test code = Potassium 3.1 3.5-5.1 L Lvl) [facility] CenterLsbaayaJRMKIROOV4392-91-83 01:56:00 Test Item Value Reference Range Interpretation Comments Calcium Lvl (test code = Calcium Lvl) 8.6 8.5-10.5 N [facility] CenterRseagveRWWJMJJNG1974-93-04 01:56:00 Test Item Value Reference Range Interpretation Comments AGAP (test code = AGAP) 19.1 10.0-20.0 N [facility]WjgilkqAGZTFFBMPR3983-47-33 01:56:00 Test Item Value Reference Range Interpretation Comments Estimated % Lysis (test 1.3 See_Comment N [Au tomated message] The code = Estimated % system wh ich generated Lysis) this result tra nsmitted reference range : <=7.5. The reference r annemarie was not used to int erpret this result as normal/abnormal . [facility] CenterDpooxshLDBNDOAOBT7705-42-23 01:56:00 Test Item Value Reference Range Interpretation Comments K-time (test code = K-time) 2.2 min 0.6-2.3 N [facility] CenterOtnwuzvMYSKJRDYBO3118-52-47 01:56:00 Test Item Value Reference Range Interpretation Comments Angle (test code = Angle) 64 degrees 64-80 N [facility] CenterYjocpevWXTZXLCBRQ7793-17-26 01:56:00 Test Item Value Reference Range Interpretation Comments Max Amp (test code = Max Amp) 58 mm 52-71 N [facility] CenterLpqcjkhROANPHVAGC1224-02-64 01:56:00 Test Item Value Reference Range Interpretation Comments R-time (test code = R-time) 0.8 min 0.4-0.7 H [facility] CenterPcrnedrTZEXINPYTG2405-32-60 01:56:00 Test Item Value Reference Range Interpretation Comments Split Point (test code = Split Point) 0.6 min [facility] CenterLevtwjaVVQEZZYJHE2382-14-22 01:56:00 Test Item Value Reference Range Interpretation Comments Rapid TEG Sample Type Citrated Whole Blood (test code = Rapid TEG Sample Type) [facility] CenterUpsvwxjXGBXKVWCQW5726-77-21 01:56:00 Test Item Value Reference Range Interpretation Comments ACT (TEG) (test code = ACT (TEG)) 121 s 86-118 H [facility] CenterLjkgcbiCSUVVCBLBN1913-70-75 01:56:00 Test Item Value Reference Range Interpretation Comments G-value (test code = G-value) 6.9 5.0-11.6 N [facility] CenterKpfwynhSNQBPHVNFK4387-71-30 01:56:00 Test Item Value Reference Range Interpretation Comments Hgb (test code = Hgb) 14.8 14.0-18.0 N [facility] CenterXqwwtftLHIGTMTHLS8768-08-30 01:56:00 Test Item Value Reference Range Interpretation Comments RBC (test code = RBC) 5.05 4.70-6.10 N [facility] CenterZlfyvizAQMGBGDLRK7927-14-99 01:56:00 Test Item Value Reference Range Interpretation Comments Hct (test code = Hct) 44.5 42.0-54.0 N [facility] CenterLmefpsbVCBJPNODHA3520-38-98 01:56:00 Test Item Value Reference Range Interpretation Comments WBC (test code = WBC) 11.8 3.7-10.4 H [facility] CenterUddiloaTONSQNGDWM2687-79-37 01:56:00 Test Item Value Reference Range Interpretation Comments MPV (test code = MPV) 9.2 7.4-10.4 N [facility] CenterGewbjvdUKZLEKVBSL9840-83-25 01:56:00 Test Item Value Reference Range Interpretation Comments MCHC (test code = MCHC) 33.2 32.0-36.0 N [facility] CenterRdrsjepSLQPRWEPDE6986-07-39 01:56:00 Test Item Value Reference Range Interpretation Comments MCV (test code = MCV) 88.1 80.0-94.0 N [facility] CenterZmdmngvWNNOVHHNTW7465-77-26 01:56:00 Test Item Value Reference Range Interpretation Comments MCH (test code = MCH) 29.3 pg 27.0-31.0 N [facility] CenterEnqznwaYGDOLITEMD0586-83-48 01:56:00 Test Item Value Reference Range Interpretation Comments Platelet (test code = Platelet) 175 133-450 N [facility] CenterWtjniumYQFIDIBODB5863-22-35 01:56:00 Test Item Value Reference Range Interpretation Comments RDW (test code = RDW) 12.4 11.5-14.5 N [facility] CenterUmhhjjuKSMBJCSSLX6180-10-16 01:56:00 Test Item Value Reference Range Interpretation Comments Lymphocytes (test code = Lymphocytes) 14.0 20.0-40.0 L [facility] CenterRynmibbJBGIMBQUFT9909-04-63 01:56:00 Test Item Value Reference Range Interpretation Comments RBC Morph (test code = Normal (12/28/2012 N RBC Morph) 20:56:00) [facility] CenterRjnmgytOMRJXJBYEF8331-26-23 01:56:00 Test Item Value Reference Range Interpretation Comments Bands (test code = 6.0 See_Comment N [Automat ed message] The Bands) system which ge nerated this result transmit abdelrahman reference range : <=11.0. The reference r annemarie was not used to interpr et this result as gurpreet l/abnormal. [facility] CenterZtofrjjYLRJGRLOKF6848-76-69 01:56:00 Test Item Value Reference Range Interpretation Comments Segs (test code = Segs) 72.0 45.0-75.0 N [facility] CenterXaxaoatSLPPKJKAYB9141-45-29 01:56:00 Test Item Value Reference Range Interpretation Comments Monocytes # (test code 0.9 See_Comment H [Aut omated message] The = Monocytes #) system which generated this result tra nsmitted reference range : <=0.8. The reference r annemarie was not used to int erpret this result as normal/abnormal . [facility] CenterFgndvaqRBTRCZZJLG1264-71-47 01:56:00 Test Item Value Reference Range Interpretation Comments Lymphocytes # (test code = Lymphocytes 1.7 1.0-5.5 N #) [facility] CenterJirwiowLGZMHQFAQO9243-45-33 01:56:00 Test Item Value Reference Range Interpretation Comments Segs-Bands # (test code = Segs-Bands #) 9.2 1.5-8.1 H [facility] CenterMsndxqdQAWXFABQIQ9984-78-47 01:56:00 Test Item Value Reference Range Interpretation Comments Monocytes (test code = Monocytes) 8.0 2.0-12.0 N [facility] CenterNvicdarSILVQTTQBN2160-42-04 01:56:00 Test Item Value Reference Range Interpretation Comments Atypical Lymphs (test code = Atypical 0.0 N Lymphs) [facility] CenterVjohtjvZYLOUTMHNB7779-48-96 01:56:00 Test Item Value Reference Range Interpretation Comments Plt Morph (test code = Normal (12/28/2012 N Plt Morph) 20:56:00) [facility] CenterJhunpymUDPKVBTRM0925-20-83 01:56:00 Test Item Value Reference Range Interpretation Comments O2 Sat Frankie (test code = O2 Sat Frankie) 84.6 40.0-70.0 H [facility] CenterYudetgbSKHDVPPAZ8401-18-72 01:56:00 Test Item Value Reference Range Interpretation Comments Temp Frankie (test code = Temp Frankie) 37.0 [facility] CenterMlwuolwLXPHNDSHR5429-38-70 01:56:00 Test Item Value Reference Range Interpretation Comments BE Frankie (test code = -4 See_Comment L [Automa abdelrahman message] The BE Frankie) system which ge nerated this result transmit abdelrahman reference range : <=2. The reference range was not used to interpr et this result as gurpreet l/abnormal. [facility] CenterZpcspunNUPFHXYYY4986-72-31 01:56:00 Test Item Value Reference Range Interpretation Comments HCO3 Frankie (test code = HCO3 Frankie) 20 22-26 L [facility] CenterSirxovdMICWNKGGA5679-06-20 01:56:00 Test Item Value Reference Range Interpretation Comments pO2 Frankie (test code = pO2 Frankie) 49 20-49 N [facility] CenterEazgrucGPYMAUGBP6575-63-51 01:56:00 Test Item Value Reference Range Interpretation Comments pH Frankie (test code = pH Frankie) 7.41 7.28-7.42 N [facility] CenterCuofowwOYQZFZWRD2531-67-98 01:56:00 Test Item Value Reference Range Interpretation Comments pCO2 Frankie (test code = pCO2 Frankie) 31 38-52 L [facility] CenterWjajllxDJNUJELHM0518-20-94 01:56:00 Test Item Value Reference Range Interpretation Comments Lactic Acid Lvl (test code = Lactic 4.4 0.5-2.2 H Acid Lvl) [facility] CenterFavsinzHOSMENPLW4164-38-03 01:56:00 Test Item Value Reference Range Interpretation Comments Ethanol Lvl (test code = Ethanol Lvl) 79 [facility] CenterUuxuzqpTVTBHEXKS4738-25-08 01:56:00 Test Item Value Reference Range Interpretation Comments Etoh (%) (test code = Etoh (%)) 0.079 [facility] CenterSphfvfwMPKMCFQLC0372-69-84 01:56:00 Test Item Value Reference Range Interpretation Comments eGFR (test code = eGFR) 93 [facility] CenterWjqelnyLRJDUXZYN3223-32-25 01:56:00 Test Item Value Reference Range Interpretation Comments BUN (test code = BUN) 6 7-22 L [facility] CenterOaltjjjNXIFOERAP4456-28-88 01:56:00 Test Item Value Reference Range Interpretation Comments Creatinine Lvl (test code = Creatinine 1.1 0.5-1.4 N Lvl) [facility] CenterDuawrltPICKYVOHV1109-99-97 01:56:00 Test Item Value Reference Range Interpretation Comments Glucose Lvl (test code = Glucose Lvl) 124 70-99 H [facility] CenterMvdyfslPFCLMXMEG2330-10-74 01:56:00 Test Item Value Reference Range Interpretation Comments Sodium Lvl (test code = Sodium Lvl) 140 135-145 N [facility] CenterUreiscqRWWYTJHBD1407-47-02 01:56:00 Test Item Value Reference Range Interpretation Comments Chloride Lvl (test code = Chloride Lvl) 103 95-109 N [facility] CenterPyxvdfiQTZJIFIJM4712-48-93 01:56:00 Test Item Value Reference Range Interpretation Comments CO2 (test code = CO2) 21 24-32 L [facility] CenterSlztzmrBKNILMGNH7672-97-84 01:56:00 Test Item Value Reference Range Interpretation Comments Potassium Lvl (test code = Potassium 3.1 3.5-5.1 L Lvl) [facility] CenterAtpwyakFATSTGYNW0958-78-54 01:56:00 Test Item Value Reference Range Interpretation Comments Calcium Lvl (test code = Calcium Lvl) 8.6 8.5-10.5 N [facility] CenterIliwhzgAODFYYEBF2642-08-41 01:56:00 Test Item Value Reference Range Interpretation Comments AGAP (test code = AGAP) 19.1 10.0-20.0 N [facility] CenterKcptggaTPJWGKJXZU3034-16-39 01:56:00 Test Item Value Reference Range Interpretation Comments Estimated % Lysis (test 1.3 See_Comment N [Au tomated message] The code = Estimated % system wh ich generated Lysis) this result tra nsmitted reference range : <=7.5. The reference r annemarie was not used to int erpret this result as normal/abnormal . [facility] CenterAoogqvuSIGXUMPQVS8460-37-20 01:56:00 Test Item Value Reference Range Interpretation Comments K-time (test code = K-time) 2.2 min 0.6-2.3 N [facility] CenterPdasibfCQRGXMFKRQ5977-88-43 01:56:00 Test Item Value Reference Range Interpretation Comments Angle (test code = Angle) 64 degrees 64-80 N [facility] CenterJpmyxowIJFCJJUZSC7702-36-77 01:56:00 Test Item Value Reference Range Interpretation Comments Max Amp (test code = Max Amp) 58 mm 52-71 N [facility] CenterBaoceknZSFKKMVKHV4205-70-51 01:56:00 Test Item Value Reference Range Interpretation Comments R-time (test code = R-time) 0.8 min 0.4-0.7 H [facility] CenterMjblxfpSTTOTTTNUF6137-32-48 01:56:00 Test Item Value Reference Range Interpretation Comments Split Point (test code = Split Point) 0.6 min [facility] CenterGyhrzpbQIXWHACQVC6548-92-04 01:56:00 Test Item Value Reference Range Interpretation Comments Rapid TEG Sample Type Citrated Whole Blood (test code = Rapid TEG Sample Type) [facility] CenterIqqckpuQZBKYHJZTE8657-98-63 01:56:00 Test Item Value Reference Range Interpretation Comments ACT (TEG) (test code = ACT (TEG)) 121 s 86-118 H [facility] CenterEchyemfXZWJFEMYLI3336-07-65 01:56:00 Test Item Value Reference Range Interpretation Comments G-value (test code = G-value) 6.9 5.0-11.6 N [facility] CenterHpftromHGUDWMQTRD1990-04-41 01:56:00 Test Item Value Reference Range Interpretation Comments Hgb (test code = Hgb) 14.8 14.0-18.0 N [facility] CenterSqgyfxaYZVKGTRTSK1275-96-09 01:56:00 Test Item Value Reference Range Interpretation Comments RBC (test code = RBC) 5.05 4.70-6.10 N [facility] CenterIltheemJTGINVJADH6090-25-12 01:56:00 Test Item Value Reference Range Interpretation Comments Hct (test code = Hct) 44.5 42.0-54.0 N [facility] CenterAybcxrtJUHBVUOJQV2519-90-30 01:56:00 Test Item Value Reference Range Interpretation Comments WBC (test code = WBC) 11.8 3.7-10.4 H [facility] CenterDhnzvqhOXLHRZBTJY0122-25-17 01:56:00 Test Item Value Reference Range Interpretation Comments MPV (test code = MPV) 9.2 7.4-10.4 N [facility] CenterTptgozuDJXEPUAMEV4064-15-73 01:56:00 Test Item Value Reference Range Interpretation Comments MCHC (test code = MCHC) 33.2 32.0-36.0 N [facility] CenterUnrgchvIQGLWUSOLM3931-79-05 01:56:00 Test Item Value Reference Range Interpretation Comments MCV (test code = MCV) 88.1 80.0-94.0 N [place] [address]-08-31 01:56:00 Test Item Value Reference Range Interpretation Comments MCH (test code = MCH) 29.3 pg 27.0-31.0 N [facility] CenterNyjvsmmKUMZAGAXIT9226-11-88 01:56:00 Test Item Value Reference Range Interpretation Comments Platelet (test code = Platelet) 175 133-450 N [facility] CenterMffyusyZQPSWPEHOS7503-15-60 01:56:00 Test Item Value Reference Range Interpretation Comments RDW (test code = RDW) 12.4 11.5-14.5 N [facility] CenterFzeatwtZCTCKLBPZC3921-69-99 01:56:00 Test Item Value Reference Range Interpretation Comments Lymphocytes (test code = Lymphocytes) 14.0 20.0-40.0 L [facility] CenterVuwosrnBHQRBAGPOI2021-63-28 01:56:00 Test Item Value Reference Range Interpretation Comments RBC Morph (test code = Normal (12/28/2012 N RBC Morph) 20:56:00) [facility] CenterSgewlfdHXCEDVEQDS8924-86-00 01:56:00 Test Item Value Reference Range Interpretation Comments Bands (test code = 6.0 See_Comment N [Automat ed message] The Bands) system which ge nerated this result transmit abdelrahman reference range : <=11.0. The reference r annemarie was not used to interpr et this result as gurpreet l/abnormal. [facility] CenterXhraijxBUJYWBGXLV3964-05-45 01:56:00 Test Item Value Reference Range Interpretation Comments Segs (test code = Segs) 72.0 45.0-75.0 N [facility] CenterDctwtsqKQSCRIPGFF4458-44-82 01:56:00 Test Item Value Reference Range Interpretation Comments Monocytes # (test code 0.9 See_Comment H [Aut omated message] The = Monocytes #) system which generated this result tra nsmitted reference range : <=0.8. The reference r annemarie was not used to int erpret this result as normal/abnormal . [facility] CenterCqpyygaSCZNBNEZMK6367-19-64 01:56:00 Test Item Value Reference Range Interpretation Comments Lymphocytes # (test code = Lymphocytes 1.7 1.0-5.5 N #) [facility] CenterLumelcjANXHWORMPP7094-72-13 01:56:00 Test Item Value Reference Range Interpretation Comments Segs-Bands # (test code = Segs-Bands #) 9.2 1.5-8.1 H [facility] CenterPylgmldIAKGJPMSIZ8907-83-20 01:56:00 Test Item Value Reference Range Interpretation Comments Monocytes (test code = Monocytes) 8.0 2.0-12.0 N [facility] CenterJrjsqgrEECHFCBISB9919-06-41 01:56:00 Test Item Value Reference Range Interpretation Comments Atypical Lymphs (test code = Atypical 0.0 N Lymphs) [facility] CenterFiniugcSEOIQTILGU7766-35-53 01:56:00 Test Item Value Reference Range Interpretation Comments Plt Morph (test code = Normal (12/28/2012 N Plt Morph) 20:56:00) [facility] CenterGhawzmiHVWKFMBUY8166-80-07 01:56:00 Test Item Value Reference Range Interpretation Comments O2 Sat Frankie (test code = O2 Sat Frankie) 84.6 40.0-70.0 H [facility] CenterEprwuciUIOQARJGV2975-15-42 01:56:00 Test Item Value Reference Range Interpretation Comments Temp Frankie (test code = Temp Frankie) 37.0 [facility] CenterFxlxcilCRDBSSSDJ3071-92-97 01:56:00 Test Item Value Reference Range Interpretation Comments BE Frankie (test code = -4 See_Comment L [Automa abdelrahman message] The BE Frankie) system which ge nerated this result transmit abdelrahman reference range : <=2. The reference range was not used to interpr et this result as gurpreet l/abnormal. [facility] CenterLddbtfnNGSIEHKHZ5409-84-86 01:56:00 Test Item Value Reference Range Interpretation Comments HCO3 Frankie (test code = HCO3 Frankie) 20 22-26 L [facility] CenterCkxacbiXTUNUNPSB9356-32-75 01:56:00 Test Item Value Reference Range Interpretation Comments pO2 Frankie (test code = pO2 Frankie) 49 20-49 N [facility] CenterVuuepovDQNUZNVZZ3103-72-17 01:56:00 Test Item Value Reference Range Interpretation Comments pH Frankie (test code = pH Frankie) 7.41 7.28-7.42 N [facility] CenterVtvyqxrJNVGSQWRR6594-85-82 01:56:00 Test Item Value Reference Range Interpretation Comments pCO2 Frankie (test code = pCO2 Frankie) 31 38-52 L [facility] CenterOojykjiWKZZMOFZI5208-40-04 01:56:00 Test Item Value Reference Range Interpretation Comments Lactic Acid Lvl (test code = Lactic 4.4 0.5-2.2 H Acid Lvl) [facility] CenterYmqpqwrYNYLMEJGJ8836-75-56 01:56:00 Test Item Value Reference Range Interpretation Comments Ethanol Lvl (test code = Ethanol Lvl) 79 [facility] CenterNrxzekjINUEHJAWL5569-38-85 01:56:00 Test Item Value Reference Range Interpretation Comments Etoh (%) (test code = Etoh (%)) 0.079 [facility] CenterTvpuccmPWUIXZBXZ5876-61-43 01:56:00 Test Item Value Reference Range Interpretation Comments eGFR (test code = eGFR) 93 [facility] CenterBlgkdoiPGTTSDSBZ7265-02-31 01:56:00 Test Item Value Reference Range Interpretation Comments BUN (test code = BUN) 6 7-22 L [facility] CenterTmpieasEKAUIEPKL2031-96-77 01:56:00 Test Item Value Reference Range Interpretation Comments Creatinine Lvl (test code = Creatinine 1.1 0.5-1.4 N Lvl) [facility] CenterNxtcjpyYASLLGFMH3038-33-75 01:56:00 Test Item Value Reference Range Interpretation Comments Glucose Lvl (test code = Glucose Lvl) 124 70-99 H [facility] CenterYkqlegeXTMBEKIVE7171-56-06 01:56:00 Test Item Value Reference Range Interpretation Comments Sodium Lvl (test code = Sodium Lvl) 140 135-145 N [facility] CenterLvqdqecEOVUYFUZR1945-93-96 01:56:00 Test Item Value Reference Range Interpretation Comments Chloride Lvl (test code = Chloride Lvl) 103 95-109 N [facility] CenterSzvbseoPPXONLJSL7138-63-68 01:56:00 Test Item Value Reference Range Interpretation Comments CO2 (test code = CO2) 21 24-32 L [facility] CenterHtygqddCBOLDXXYF4070-84-45 01:56:00 Test Item Value Reference Range Interpretation Comments Potassium Lvl (test code = Potassium 3.1 3.5-5.1 L Lvl) [facility] CenterTfosaieSCGWNLVJE7353-53-66 01:56:00 Test Item Value Reference Range Interpretation Comments Calcium Lvl (test code = Calcium Lvl) 8.6 8.5-10.5 N [facility] CenterIlfqxzaEEJSSEENM3283-66-64 01:56:00 Test Item Value Reference Range Interpretation Comments AGAP (test code = AGAP) 19.1 10.0-20.0 N [facility] CenterHsrvconUBLBNUMELI5634-63-18 01:56:00 Test Item Value Reference Range Interpretation Comments Estimated % Lysis (test 1.3 See_Comment N [Au tomated message] The code = Estimated % system wh ich generated Lysis) this result tra nsmitted reference range : <=7.5. The reference r annemarie was not used to int erpret this result as normal/abnormal . [facility] CenterYngwsbsBWXGPECMVL4800-88-12 01:56:00 Test Item Value Reference Range Interpretation Comments K-time (test code = K-time) 2.2 min 0.6-2.3 N [facility] CenterKcrolinBRRINZQTGZ8330-54-09 01:56:00 Test Item Value Reference Range Interpretation Comments Angle (test code = Angle) 64 degrees 64-80 N [facility] CenterHkyskgpWSWRWFPPPV4599-50-02 01:56:00 Test Item Value Reference Range Interpretation Comments Max Amp (test code = Max Amp) 58 mm 52-71 N [facility] CenterEotnzvoSZQPIUOHNB9723-79-08 01:56:00 Test Item Value Reference Range Interpretation Comments R-time (test code = R-time) 0.8 min 0.4-0.7 H [facility] CenterVdolkuiJPCLYOJWID2456-01-19 01:56:00 Test Item Value Reference Range Interpretation Comments Split Point (test code = Split Point) 0.6 min [facility] CenterCrnspuzAKDYNMORVR9526-65-25 01:56:00 Test Item Value Reference Range Interpretation Comments Rapid TEG Sample Type Citrated Whole Blood (test code = Rapid TEG Sample Type) [facility]CylyovfVJTROHZPCJ3557-48-86 01:56:00 Test Item Value Reference Range Interpretation Comments ACT (TEG) (test code = ACT (TEG)) 121 s 86-118 H [facility] CenterCortdpbACJFOWCHFV3599-38-99 01:56:00 Test Item Value Reference Range Interpretation Comments G-value (test code = G-value) 6.9 5.0-11.6 N [facility] CenterMwmrumhYGIBXUSQKK9503-37-90 01:56:00 Test Item Value Reference Range Interpretation Comments Hgb (test code = Hgb) 14.8 14.0-18.0 N [facility] CenterRaqiyqeENUAMJYNME4797-50-71 01:56:00 Test Item Value Reference Range Interpretation Comments RBC (test code = RBC) 5.05 4.70-6.10 N [facility] CenterLcnexxiUQETMHHQSX7535-22-41 01:56:00 Test Item Value Reference Range Interpretation Comments Hct (test code = Hct) 44.5 42.0-54.0 N [facility] CenterKdlzijtOSEDJKAQTD8766-21-72 01:56:00 Test Item Value Reference Range Interpretation Comments WBC (test code = WBC) 11.8 3.7-10.4 H [facility] CenterAmqsjadFXDXQOGAEL6493-40-77 01:56:00 Test Item Value Reference Range Interpretation Comments MPV (test code = MPV) 9.2 7.4-10.4 N [facility] CenterSqvtcinFIHMPQBEQV4076-21-67 01:56:00 Test Item Value Reference Range Interpretation Comments MCHC (test code = MCHC) 33.2 32.0-36.0 N [facility] CenterDkurrhoWRQLDOOYNT0515-18-18 01:56:00 Test Item Value Reference Range Interpretation Comments MCV (test code = MCV) 88.1 80.0-94.0 N [facility] CenterUggnwaxJSNBFYLNME4278-18-62 01:56:00 Test Item Value Reference Range Interpretation Comments MCH (test code = MCH) 29.3 pg 27.0-31.0 N [facility] CenterYbokmrrUKTPYQWWGT2577-96-80 01:56:00 Test Item Value Reference Range Interpretation Comments Platelet (test code = Platelet) 175 133-450 N [facility] CenterXbdtxosOBUVEIJHQW4660-24-59 01:56:00 Test Item Value Reference Range Interpretation Comments RDW (test code = RDW) 12.4 11.5-14.5 N [facility] CenterJzslfeuTGRJDMDOWN7675-86-59 01:56:00 Test Item Value Reference Range Interpretation Comments Lymphocytes (test code = Lymphocytes) 14.0 20.0-40.0 L [facility] CenterNsuyrhfDPBGFUUKSM3929-31-31 01:56:00 Test Item Value Reference Range Interpretation Comments RBC Morph (test code = Normal (12/28/2012 N RBC Morph) 20:56:00) [facility] CenterRszprhzMHCWHVRZAI7095-46-77 01:56:00 Test Item Value Reference Range Interpretation Comments Bands (test code = 6.0 See_Comment N [Automat ed message] The Bands) system which ge nerated this result transmit abdelrahman reference range : <=11.0. The reference r annemarie was not used to interpr et this result as gurpreet l/abnormal. [facility] CenterFggsddfWZKBKZHEWF9101-00-54 01:56:00 Test Item Value Reference Range Interpretation Comments Segs (test code = Segs) 72.0 45.0-75.0 N [facility] CenterCxpxusoXJUDIQTVSO3334-06-69 01:56:00 Test Item Value Reference Range Interpretation Comments Monocytes # (test code 0.9 See_Comment H [Aut omated message] The = Monocytes #) system which generated this result tra nsmitted reference range : <=0.8. The reference r annemarie was not used to int erpret this result as normal/abnormal . [facility] CenterFcgylfwVYIECDATRK4886-25-04 01:56:00 Test Item Value Reference Range Interpretation Comments Lymphocytes # (test code = Lymphocytes 1.7 1.0-5.5 N #) [facility] CenterWtxiijpVFHXODEMDP9191-79-23 01:56:00 Test Item Value Reference Range Interpretation Comments Segs-Bands # (test code = Segs-Bands #) 9.2 1.5-8.1 H [facility] CenterEwuqqdiBBLZCVQACC5913-52-22 01:56:00 Test Item Value Reference Range Interpretation Comments Monocytes (test code = Monocytes) 8.0 2.0-12.0 N [facility] CenterNaehcanZGAFIWKRLI0495-81-02 01:56:00 Test Item Value Reference Range Interpretation Comments Atypical Lymphs (test code = Atypical 0.0 N Lymphs) [facility] CenterRtidmsdPTZANPTPCY9476-69-28 01:56:00 Test Item Value Reference Range Interpretation Comments Plt Morph (test code = Normal (12/28/2012 N Plt Morph) 20:56:00) [facility] CenterWlyzrhvUTQGYXHIH2655-67-18 01:56:00 Test Item Value Reference Range Interpretation Comments O2 Sat Frankie (test code = O2 Sat Frankie) 84.6 40.0-70.0 H [facility] CenterRzsgkllNKXTZVPPO3895-41-05 01:56:00 Test Item Value Reference Range Interpretation Comments Temp Frankie (test code = Temp Frankie) 37.0 [facility] CenterNiopyntQNYGFPWSD8754-70-59 01:56:00 Test Item Value Reference Range Interpretation Comments BE Frankie (test code = -4 See_Comment L [Automa abdelrahman message] The BE Frankie) system which ge nerated this result transmit abdelrahman reference range : <=2. The reference range was not used to interpr et this result as gurpreet l/abnormal. [facility] CenterHovipvzUUWAEQVXR1839-28-22 01:56:00 Test Item Value Reference Range Interpretation Comments HCO3 Frankie (test code = HCO3 Frankie) 20 22-26 L [facility] CenterVwsjnfyNRSCANJEO4576-47-06 01:56:00 Test Item Value Reference Range Interpretation Comments pO2 Frankie (test code = pO2 Frankie) 49 20-49 N [facility] CenterEglllpiPQQNOZOHV8504-84-04 01:56:00 Test Item Value Reference Range Interpretation Comments pH Frankie (test code = pH Frankie) 7.41 7.28-7.42 N [facility] CenterQcgkktxLBISXPPAS5776-45-74 01:56:00 Test Item Value Reference Range Interpretation Comments pCO2 Frankie (test code = pCO2 Frankie) 31 38-52 L [facility] CenterZdzdhnjJEFEMYZED6661-93-69 01:56:00 Test Item Value Reference Range Interpretation Comments Lactic Acid Lvl (test code = Lactic 4.4 0.5-2.2 H Acid Lvl) [facility] CenterTomgxlhWSVMYPZDN0829-53-47 01:56:00 Test Item Value Reference Range Interpretation Comments Ethanol Lvl (test code = Ethanol Lvl) 79 [facility] CenterMnaoqniEPFMVURYN5485-57-66 01:56:00 Test Item Value Reference Range Interpretation Comments Etoh (%) (test code = Etoh (%)) 0.079 [facility] CenterSltjizkGIBYDFEDL8771-51-99 01:56:00 Test Item Value Reference Range Interpretation Comments eGFR (test code = eGFR) 93 [facility] CenterTraendiZKWSMFUVM0964-34-63 01:56:00 Test Item Value Reference Range Interpretation Comments BUN (test code = BUN) 6 7-22 L [facility] CenterRcoolqdJSWCXWRCP1745-34-08 01:56:00 Test Item Value Reference Range Interpretation Comments Creatinine Lvl (test code = Creatinine 1.1 0.5-1.4 N Lvl) [facility] CenterAoytvefTYJDYWQVH4072-17-28 01:56:00 Test Item Value Reference Range Interpretation Comments Glucose Lvl (test code = Glucose Lvl) 124 70-99 H [facility] CenterBhdkhghGDXCBEXUK1093-98-14 01:56:00 Test Item Value Reference Range Interpretation Comments Sodium Lvl (test code = Sodium Lvl) 140 135-145 N [facility] CenterGrhigviTNUCULOPZ8235-99-46 01:56:00 Test Item Value Reference Range Interpretation Comments Chloride Lvl (test code = Chloride Lvl) 103 95-109 N [facility] CenterQprkbmfTSXQGTGQV1408-13-73 01:56:00 Test Item Value Reference Range Interpretation Comments CO2 (test code = CO2) 21 24-32 L [facility] CenterVuczojbXDNWHWMLY5944-73-72 01:56:00 Test Item Value Reference Range Interpretation Comments Potassium Lvl (test code = Potassium 3.1 3.5-5.1 L Lvl) [facility] CenterPxrlvhqZXNOLMOVJ3128-80-29 01:56:00 Test Item Value Reference Range Interpretation Comments Calcium Lvl (test code = Calcium Lvl) 8.6 8.5-10.5 N [facility] CenterUlcnqyuLJGCASOVI4610-44-86 01:56:00 Test Item Value Reference Range Interpretation Comments AGAP (test code = AGAP) 19.1 10.0-20.0 N [facility] CenterMzkvkznOETWUAUGSY2720-68-98 01:56:00 Test Item Value Reference Range Interpretation Comments Estimated % Lysis (test 1.3 See_Comment N [Au tomated message] The code = Estimated % system wh ich generated Lysis) this result tra nsmitted reference range : <=7.5. The reference r annemarie was not used to int erpret this result as normal/abnormal . [facility] CenterDxjcbpmKPUQCBVJPI8937-84-43 01:56:00 Test Item Value Reference Range Interpretation Comments K-time (test code = K-time) 2.2 min 0.6-2.3 N [facility] CenterQznzavkNZUDBBQLOI5286-30-91 01:56:00 Test Item Value Reference Range Interpretation Comments Angle (test code = Angle) 64 degrees 64-80 N [facility] CenterLuhlwtdKLGUUKEIMX9071-47-91 01:56:00 Test Item Value Reference Range Interpretation Comments Max Amp (test code = Max Amp) 58 mm 52-71 N [facility] CenterKbvkrjfOYALIJWCFY4672-02-42 01:56:00 Test Item Value Reference Range Interpretation Comments R-time (test code = R-time) 0.8 min 0.4-0.7 H [facility] CenterQmtemkqYZFWXRMJGC3864-19-33 01:56:00 Test Item Value Reference Range Interpretation Comments Split Point (test code = Split Point) 0.6 min [facility] CenterFnhakljGGVSGTWNTH8483-69-06 01:56:00 Test Item Value Reference Range Interpretation Comments Rapid TEG Sample Type Citrated Whole Blood (test code = Rapid TEG Sample Type) [facility] CenterGtzaytzQJAKAYPOXW5836-88-93 01:56:00 Test Item Value Reference Range Interpretation Comments ACT (TEG) (test code = ACT (TEG)) 121 s 86-118 H [facility] CenterZptasdaTBEYSOQGLS2659-69-03 01:56:00 Test Item Value Reference Range Interpretation Comments G-value (test code = G-value) 6.9 5.0-11.6 N [facility] CenterImrebazLRLEJQBQKE2098-31-16 01:56:00 Test Item Value Reference Range Interpretation Comments Hgb (test code = Hgb) 14.8 14.0-18.0 N [facility] CenterWqjveunADYFIRMKFX0770-70-52 01:56:00 Test Item Value Reference Range Interpretation Comments RBC (test code = RBC) 5.05 4.70-6.10 N [facility] CenterEfvajmoOHCIYIYTOE6980-66-22 01:56:00 Test Item Value Reference Range Interpretation Comments Hct (test code = Hct) 44.5 42.0-54.0 N [facility] CenterCfihzjvYVWIYGECPI7561-93-16 01:56:00 Test Item Value Reference Range Interpretation Comments WBC (test code = WBC) 11.8 3.7-10.4 H [facility] CenterWrjkqzjQCEGCZVYHT0987-04-88 01:56:00 Test Item Value Reference Range Interpretation Comments MPV (test code = MPV) 9.2 7.4-10.4 N [facility] CenterUmfquqbEPFVDXQGEY6929-15-89 01:56:00 Test Item Value Reference Range Interpretation Comments MCHC (test code = MCHC) 33.2 32.0-36.0 N [facility] CenterSazzgxyBTIMRUELLA4946-00-27 01:56:00 Test Item Value Reference Range Interpretation Comments MCV (test code = MCV) 88.1 80.0-94.0 N [facility] CenterVmxunhmPDRNHIRTIO4201-69-10 01:56:00 Test Item Value Reference Range Interpretation Comments MCH (test code = MCH) 29.3 pg 27.0-31.0 N [facility] CenterJuroakxHLALYOAGEL7458-31-76 01:56:00 Test Item Value Reference Range Interpretation Comments Platelet (test code = Platelet) 175 133-450 N [facility] CenterCesrolqABAFTMQRVZ8890-40-08 01:56:00 Test Item Value Reference Range Interpretation Comments RDW (test code = RDW) 12.4 11.5-14.5 N [facility] CenterMsvylchNVBGDSHKOA1881-61-08 01:56:00 Test Item Value Reference Range Interpretation Comments Lymphocytes (test code = Lymphocytes) 14.0 20.0-40.0 L [facility] CenterDkojwcyZZJHERORKK8350-37-55 01:56:00 Test Item Value Reference Range Interpretation Comments RBC Morph (test code = Normal (12/28/2012 N RBC Morph) 20:56:00) [facility] CenterFszxwnmECNPLSTGPF5934-76-15 01:56:00 Test Item Value Reference Range Interpretation Comments Bands (test code = 6.0 See_Comment N [Automat ed message] The Bands) system which ge nerated this result transmit abdelrahman reference range : <=11.0. The reference r annemarie was not used to interpr et this result as gurpreet l/abnormal. [facility] CenterFruutprPVSYEGLTSA6700-84-77 01:56:00 Test Item Value Reference Range Interpretation Comments Segs (test code = Segs) 72.0 45.0-75.0 N [facility] CenterCwjbjcuXGACUVSHIN2424-47-92 01:56:00 Test Item Value Reference Range Interpretation Comments Monocytes # (test code 0.9 See_Comment H [Aut omated message] The = Monocytes #) system which generated this result tra nsmitted reference range : <=0.8. The reference r annemarie was not used to int erpret this result as normal/abnormal . [facility] CenterSmkvcguGWSELWUEIZ5878-69-37 01:56:00 Test Item Value Reference Range Interpretation Comments Lymphocytes # (test code = Lymphocytes 1.7 1.0-5.5 N #) [facility] CenterMpczjlpZWAYKBNUYW1162-81-23 01:56:00 Test Item Value Reference Range Interpretation Comments Segs-Bands # (test code = Segs-Bands #) 9.2 1.5-8.1 H [facility] CenterJnbcvykQEIOQNWKLU7161-11-30 01:56:00 Test Item Value Reference Range Interpretation Comments Monocytes (test code = Monocytes) 8.0 2.0-12.0 N [facility] CenterStwsvroMDJDGUYUHD9033-22-00 01:56:00 Test Item Value Reference Range Interpretation Comments Atypical Lymphs (test code = Atypical 0.0 N Lymphs) [facility] CenterSuqmsdgHZXCWWOLNM7596-91-66 01:56:00 Test Item Value Reference Range Interpretation Comments Plt Morph (test code = Normal (12/28/2012 N Plt Morph) 20:56:00) [facility] CenterHijakivKFHNTRCSE8754-94-02 01:56:00 Test Item Value Reference Range Interpretation Comments O2 Sat Frankie (test code = O2 Sat Frankie) 84.6 40.0-70.0 H [facility] CenterWhlbnsnCSYXBUWMV3155-39-73 01:56:00 Test Item Value Reference Range Interpretation Comments Temp Frankie (test code = Temp Frankie) 37.0 [facility] CenterGrzpbgeZMJFOWCEZ0565-34-06 01:56:00 Test Item Value Reference Range Interpretation Comments BE Frankie (test code = -4 See_Comment L [Automa abdelrahman message] The BE Frankie) system which ge nerated this result transmit abdelrahman reference range : <=2. The reference range was not used to interpr et this result as gurpreet l/abnormal. [facility] CenterYnotpwzFHUOUWJIH5944-61-66 01:56:00 Test Item Value Reference Range Interpretation Comments HCO3 Frankie (test code = HCO3 Frankie) 20 22-26 L [facility] CenterMurlwcgUDHXOMBMH7219-90-68 01:56:00 Test Item Value Reference Range Interpretation Comments pO2 Frankie (test code = pO2 Frankie) 49 20-49 N [facility] CenterHjttxkuZYMDAOUAD7825-36-76 01:56:00 Test Item Value Reference Range Interpretation Comments pH Frankie (test code = pH Frankie) 7.41 7.28-7.42 N [facility] CenterSediibcAGVBVVKPB4210-84-58 01:56:00 Test Item Value Reference Range Interpretation Comments pCO2 Frankie (test code = pCO2 Frankie) 31 38-52 L [facility] CenterKyukiezDLHCVIGGI2729-15-08 01:56:00 Test Item Value Reference Range Interpretation Comments Lactic Acid Lvl (test code = Lactic 4.4 0.5-2.2 H Acid Lvl) [facility] CenterKrnzejzURTGIKOKJ1039-19-68 01:56:00 Test Item Value Reference Range Interpretation Comments Ethanol Lvl (test code = Ethanol Lvl) 79 [facility] CenterRrrdpbqHKSSPNKLK9188-47-19 01:56:00 Test Item Value Reference Range Interpretation Comments Etoh (%) (test code = Etoh (%)) 0.079 [facility] CenterPsskqxpUFNKGRXAR9976-14-58 01:56:00 Test Item Value Reference Range Interpretation Comments eGFR (test code = eGFR) 93 [facility] CenterIsnuwyoXSXLYXJXU5498-15-08 01:56:00 Test Item Value Reference Range Interpretation Comments BUN (test code = BUN) 6 7-22 L [facility] CenterOveuuttANUZHIOCN6723-33-23 01:56:00 Test Item Value Reference Range Interpretation Comments Creatinine Lvl (test code = Creatinine 1.1 0.5-1.4 N Lvl) [facility] CenterRtdpcxoZKXBNMOKP1655-22-57 01:56:00 Test Item Value Reference Range Interpretation Comments Glucose Lvl (test code = Glucose Lvl) 124 70-99 H [facility] CenterYijpgtoYIAPCKWDM0668-54-18 01:56:00 Test Item Value Reference Range Interpretation Comments Sodium Lvl (test code = Sodium Lvl) 140 135-145 N [facility] CenterIprgkgrNHNGFKUWA0675-10-62 01:56:00 Test Item Value Reference Range Interpretation Comments Chloride Lvl (test code = Chloride Lvl) 103 95-109 N [facility] CenterIwaquaqGUWESVNCJ3071-79-99 01:56:00 Test Item Value Reference Range Interpretation Comments CO2 (test code = CO2) 21 24-32 L [facility] CenterTdajzysWSFLQSPOO8822-08-61 01:56:00 Test Item Value Reference Range Interpretation Comments Potassium Lvl (test code = Potassium 3.1 3.5-5.1 L Lvl) [facility] CenterUevenqfOXHVJCPWQ1521-55-70 01:56:00 Test Item Value Reference Range Interpretation Comments Calcium Lvl (test code = Calcium Lvl) 8.6 8.5-10.5 N [facility] CenterUgqykxrJMCWNHZTH1196-67-18 01:56:00 Test Item Value Reference Range Interpretation Comments AGAP (test code = AGAP) 19.1 10.0-20.0 N [facility] CenterHmlbllnDZIGKCXBMV3232-17-12 01:56:00 Test Item Value Reference Range Interpretation Comments Estimated % Lysis (test 1.3 See_Comment N [Au tomated message] The code = Estimated % system wh ich generated Lysis) this result tra nsmitted reference range : <=7.5. The reference r annemarie was not used to int erpret this result as normal/abnormal . [facility] CenterBnsafqhOMWINRZRDB2407-86-11 01:56:00 Test Item Value Reference Range Interpretation Comments K-time (test code = K-time) 2.2 min 0.6-2.3 N [facility] CenterRexvcbeDLJBXBNLFP1119-78-61 01:56:00 Test Item Value Reference Range Interpretation Comments Angle (test code = Angle) 64 degrees 64-80 N [facility] CenterFffwbniQSDFFJBMWS3197-91-07 01:56:00 Test Item Value Reference Range Interpretation Comments Max Amp (test code = Max Amp) 58 mm 52-71 N [facility] CenterSqeqjoaXSQTUTEHMG1247-66-04 01:56:00 Test Item Value Reference Range Interpretation Comments R-time (test code = R-time) 0.8 min 0.4-0.7 H [place] 551093-08-31 01:56:00 Test Item Value Reference Range Interpretation Comments Split Point (test code = Split Point) 0.6 min [facility] CenterNdteiskZOJHSCYFJN3968-94-30 01:56:00 Test Item Value Reference Range Interpretation Comments Rapid TEG Sample Type Citrated Whole Blood (test code = Rapid TEG Sample Type) [facility] CenterWtvrqioCNFZNCJNJC0488-03-16 01:56:00 Test Item Value Reference Range Interpretation Comments ACT (TEG) (test code = ACT (TEG)) 121 s 86-118 H [facility] CenterErvfytuKUWJKOIWRL4403-63-74 01:56:00 Test Item Value Reference Range Interpretation Comments G-value (test code = G-value) 6.9 5.0-11.6 N [facility] CenterEddbxuyJHSYULZAIP2122-43-61 01:56:00 Test Item Value Reference Range Interpretation Comments Hgb (test code = Hgb) 14.8 14.0-18.0 N [facility] CenterAhidzddHFGDPHGOZJ8343-84-23 01:56:00 Test Item Value Reference Range Interpretation Comments RBC (test code = RBC) 5.05 4.70-6.10 N [facility] CenterNcwrowvHDGUDGDIJV2674-32-96 01:56:00 Test Item Value Reference Range Interpretation Comments Hct (test code = Hct) 44.5 42.0-54.0 N [facility] CenterUsspogtHSWGLWDPLV3454-51-84 01:56:00 Test Item Value Reference Range Interpretation Comments WBC (test code = WBC) 11.8 3.7-10.4 H [facility] CenterMhukegxVPEGOLXFDZ6430-26-68 01:56:00 Test Item Value Reference Range Interpretation Comments MPV (test code = MPV) 9.2 7.4-10.4 N [facility] CenterZhcrjmuFXSXEDTKPJ7247-23-08 01:56:00 Test Item Value Reference Range Interpretation Comments MCHC (test code = MCHC) 33.2 32.0-36.0 N [facility] CenterXfoqqxoWTKBHSFTZB9638-08-51 01:56:00 Test Item Value Reference Range Interpretation Comments MCV (test code = MCV) 88.1 80.0-94.0 N [facility] CenterNpdjjxqAHYFVDBQEM5295-23-14 01:56:00 Test Item Value Reference Range Interpretation Comments MCH (test code = MCH) 29.3 pg 27.0-31.0 N [facility] CenterKssmdfmLRAZUKKRNF9758-67-10 01:56:00 Test Item Value Reference Range Interpretation Comments Platelet (test code = Platelet) 175 133-450 N [facility] CenterBemylhzMEJTTUQAAI6261-89-48 01:56:00 Test Item Value Reference Range Interpretation Comments RDW (test code = RDW) 12.4 11.5-14.5 N [facility] CenterXyxjtyuUBPCZWWNGV0555-12-76 01:56:00 Test Item Value Reference Range Interpretation Comments Lymphocytes (test code = Lymphocytes) 14.0 20.0-40.0 L [facility] CenterOodmckgWGYUHCYEWF3750-36-50 01:56:00 Test Item Value Reference Range Interpretation Comments RBC Morph (test code = Normal (12/28/2012 N RBC Morph) 20:56:00) [facility] CenterOsrghwdCDXJBHRXYQ3051-03-17 01:56:00 Test Item Value Reference Range Interpretation Comments Bands (test code = 6.0 See_Comment N [Automat ed message] The Bands) system which ge nerated this result transmit abdelrahman reference range : <=11.0. The reference r annemarie was not used to interpr et this result as gurpreet l/abnormal. [facility] CenterThantygPWZUTDEYGF9737-26-24 01:56:00 Test Item Value Reference Range Interpretation Comments Segs (test code = Segs) 72.0 45.0-75.0 N [facility] CenterHcfnsoxENFQWWOQZY3349-58-64 01:56:00 Test Item Value Reference Range Interpretation Comments Monocytes # (test code 0.9 See_Comment H [Aut omated message] The = Monocytes #) system which generated this result tra nsmitted reference range : <=0.8. The reference r annemarie was not used to int erpret this result as normal/abnormal . [facility] CenterVkghpjtDOQSFKQPMQ6569-87-60 01:56:00 Test Item Value Reference Range Interpretation Comments Lymphocytes # (test code = Lymphocytes 1.7 1.0-5.5 N #) [facility] CenterBqdlftiZRGTSWJAKC7571-27-83 01:56:00 Test Item Value Reference Range Interpretation Comments Segs-Bands # (test code = Segs-Bands #) 9.2 1.5-8.1 H [facility] CenterYqbkregYVNGZETLZN1088-94-94 01:56:00 Test Item Value Reference Range Interpretation Comments Monocytes (test code = Monocytes) 8.0 2.0-12.0 N [facility] CenterNmtsvfkBEBAOSDGIU1640-25-42 01:56:00 Test Item Value Reference Range Interpretation Comments Atypical Lymphs (test code = Atypical 0.0 N Lymphs) [facility] CenterZjmlaroLAHNGNDRYO9693-48-25 01:56:00 Test Item Value Reference Range Interpretation Comments Plt Morph (test code = Normal (12/28/2012 N Plt Morph) 20:56:00) [facility] CenterKeoimkkUDHQELXIG7068-57-47 01:56:00 Test Item Value Reference Range Interpretation Comments O2 Sat Frankie (test code = O2 Sat Frankie) 84.6 40.0-70.0 H [facility] CenterLeefafnDEKYOOHHI6936-73-07 01:56:00 Test Item Value Reference Range Interpretation Comments Temp Frankie (test code = Temp Frankie) 37.0 [facility] CenterFocxamxRVBYDRFOO5325-91-01 01:56:00 Test Item Value Reference Range Interpretation Comments BE Frankie (test code = -4 See_Comment L [Automa abdelrahman message] The BE Frankie) system which ge nerated this result transmit abdelrahman reference range : <=2. The reference range was not used to interpr et this result as gurpreet l/abnormal. [facility] CenterJtsqwhcMTHWPKNPJ3188-24-11 01:56:00 Test Item Value Reference Range Interpretation Comments HCO3 Frankie (test code = HCO3 Frankie) 20 22-26 L [facility] CenterAjkwxmnEZGEAXRAI9422-61-56 01:56:00 Test Item Value Reference Range Interpretation Comments pO2 Frankie (test code = pO2 Frankie) 49 20-49 N [facility] CenterKgruirfSZUCYRNYD4303-94-95 01:56:00 Test Item Value Reference Range Interpretation Comments pH Frankie (test code = pH Frankie) 7.41 7.28-7.42 N [facility] CenterYwppzacLSRYHEHJZ1320-51-50 01:56:00 Test Item Value Reference Range Interpretation Comments pCO2 Frankie (test code = pCO2 Frankie) 31 38-52 L [facility] CenterAdomsxjXEDFTOGJW8552-09-10 01:56:00 Test Item Value Reference Range Interpretation Comments Lactic Acid Lvl (test code = Lactic 4.4 0.5-2.2 H Acid Lvl) [facility] CenterDbxiywgRNFHJDMKW9845-24-00 01:56:00 Test Item Value Reference Range Interpretation Comments Ethanol Lvl (test code = Ethanol Lvl) 79 [facility] CenterDaunnpnRURHHKXED4136-00-44 01:56:00 Test Item Value Reference Range Interpretation Comments Etoh (%) (test code = Etoh (%)) 0.079 [facility] CenterHchavebCRDJEOOQH2706-64-83 01:56:00 Test Item Value Reference Range Interpretation Comments eGFR (test code = eGFR) 93 [facility] CenterHavlgiwEHPVOTEXT8188-03-49 01:56:00 Test Item Value Reference Range Interpretation Comments BUN (test code = BUN) 6 7-22 L [facility] CenterKmdmndaJNJOLRLSB0728-07-44 01:56:00 Test Item Value Reference Range Interpretation Comments Creatinine Lvl (test code = Creatinine 1.1 0.5-1.4 N Lvl) [facility] CenterLafpnsxKPDCVAXNR3276-13-64 01:56:00 Test Item Value Reference Range Interpretation Comments Glucose Lvl (test code = Glucose Lvl) 124 70-99 H [facility] CenterIxdknlxRKJWMWKEE6336-53-99 01:56:00 Test Item Value Reference Range Interpretation Comments Sodium Lvl (test code = Sodium Lvl) 140 135-145 N [facility] CenterRzgsruoYGYOTFEGA6862-12-36 01:56:00 Test Item Value Reference Range Interpretation Comments Chloride Lvl (test code = Chloride Lvl) 103 95-109 N [facility] CenterOxrkafdWCQPXZHKA8018-24-94 01:56:00 Test Item Value Reference Range Interpretation Comments CO2 (test code = CO2) 21 24-32 L [facility] CenterGdyivpqNERGYGZVG2789-57-90 01:56:00 Test Item Value Reference Range Interpretation Comments Potassium Lvl (test code = Potassium 3.1 3.5-5.1 L Lvl) [facility] CenterUupxrvoJGUHWAFUZ9890-06-44 01:56:00 Test Item Value Reference Range Interpretation Comments Calcium Lvl (test code = Calcium Lvl) 8.6 8.5-10.5 N [facility] CenterWvluqahZSZLJVCTQ4856-22-00 01:56:00 Test Item Value Reference Range Interpretation Comments AGAP (test code = AGAP) 19.1 10.0-20.0 N [facility]TacsdysXHMQWLXOSQ1587-70-76 01:56:00 Test Item Value Reference Range Interpretation Comments Estimated % Lysis (test 1.3 See_Comment N [Au tomated message] The code = Estimated % system wh ich generated Lysis) this result tra nsmitted reference range : <=7.5. The reference r annemarie was not used to int erpret this result as normal/abnormal . [place] [id number] 01:56:00 Test Item Value Reference Range Interpretation Comments K-time (test code = K-time) 2.2 min 0.6-2.3 N [facility] CenterOrrycygQGDFYHURJH2533-53-81 01:56:00 Test Item Value Reference Range Interpretation Comments Angle (test code = Angle) 64 degrees 64-80 N [facility] CenterNgcmymuAQQSPEDVJK2199-34-16 01:56:00 Test Item Value Reference Range Interpretation Comments Max Amp (test code = Max Amp) 58 mm 52-71 N [facility] CenterNjzkyalNFEHMKSJQM4850-53-81 01:56:00 Test Item Value Reference Range Interpretation Comments R-time (test code = R-time) 0.8 min 0.4-0.7 H [facility] CenterMssmztwQEHTDBARXL7361-42-70 01:56:00 Test Item Value Reference Range Interpretation Comments Split Point (test code = Split Point) 0.6 min [facility] CenterRgcadouCFAZLAMECX6722-31-20 01:56:00 Test Item Value Reference Range Interpretation Comments Rapid TEG Sample Type Citrated Whole Blood (test code = Rapid TEG Sample Type) [facility] CenterNgeitjaLRUJWYVBNW9173-79-52 01:56:00 Test Item Value Reference Range Interpretation Comments ACT (TEG) (test code = ACT (TEG)) 121 s 86-118 H [facility] CenterOllxozlZWVDYVEMSN9799-29-45 01:56:00 Test Item Value Reference Range Interpretation Comments G-value (test code = G-value) 6.9 5.0-11.6 N [facility] CenterGzuqczaKAMCXGWZHO4712-57-40 01:56:00 Test Item Value Reference Range Interpretation Comments Hgb (test code = Hgb) 14.8 14.0-18.0 N [facility] CenterWbudihoOCQEDCEKMX0551-60-86 01:56:00 Test Item Value Reference Range Interpretation Comments RBC (test code = RBC) 5.05 4.70-6.10 N [facility] CenterBxafwcoQFSAUARTGB8558-67-34 01:56:00 Test Item Value Reference Range Interpretation Comments Hct (test code = Hct) 44.5 42.0-54.0 N [facility] CenterElhvpawBLXGLZKPYV8731-75-31 01:56:00 Test Item Value Reference Range Interpretation Comments WBC (test code = WBC) 11.8 3.7-10.4 H [facility] CenterRutfklcZBFPPLQZCJ2474-86-31 01:56:00 Test Item Value Reference Range Interpretation Comments MPV (test code = MPV) 9.2 7.4-10.4 N [facility] CenterSqerheaLSTRJCHXON3487-75-10 01:56:00 Test Item Value Reference Range Interpretation Comments MCHC (test code = MCHC) 33.2 32.0-36.0 N [facility] CenterYvtivzkQABZGTGUSP7835-55-89 01:56:00 Test Item Value Reference Range Interpretation Comments MCV (test code = MCV) 88.1 80.0-94.0 N [facility] CenterNvmiiyzCRLZYXZCPB7124-01-32 01:56:00 Test Item Value Reference Range Interpretation Comments MCH (test code = MCH) 29.3 pg 27.0-31.0 N [facility] CenterDrockisSAVEUZGPGT5247-16-68 01:56:00 Test Item Value Reference Range Interpretation Comments Platelet (test code = Platelet) 175 133-450 N [facility] CenterWqosvbfTBEEEAXDDM5968-53-60 01:56:00 Test Item Value Reference Range Interpretation Comments RDW (test code = RDW) 12.4 11.5-14.5 N [facility] CenterKmohwxfSTDLJSOSBB2373-68-73 01:56:00 Test Item Value Reference Range Interpretation Comments Lymphocytes (test code = Lymphocytes) 14.0 20.0-40.0 L [facility] CenterXnrcpznYENNEFEGHO2264-97-36 01:56:00 Test Item Value Reference Range Interpretation Comments RBC Morph (test code = Normal (12/28/2012 N RBC Morph) 20:56:00) [facility] CenterUuydcgdXEZZIZLZRH5091-50-17 01:56:00 Test Item Value Reference Range Interpretation Comments Bands (test code = 6.0 See_Comment N [Automat ed message] The Bands) system which ge nerated this result transmit abdelrahman reference range : <=11.0. The reference r annemarie was not used to interpr et this result as gurpreet l/abnormal. [facility] CenterMnwsvjgAFWBPDMGVQ8743-41-00 01:56:00 Test Item Value Reference Range Interpretation Comments Segs (test code = Segs) 72.0 45.0-75.0 N [facility] CenterGxokgqvOYNGLGUWJP1926-29-90 01:56:00 Test Item Value Reference Range Interpretation Comments Monocytes # (test code 0.9 See_Comment H [Aut omated message] The = Monocytes #) system which generated this result tra nsmitted reference range : <=0.8. The reference r annemarie was not used to int erpret this result as normal/abnormal . [facility] CenterZpchmitHGJQWASDLN4724-54-94 01:56:00 Test Item Value Reference Range Interpretation Comments Lymphocytes # (test code = Lymphocytes 1.7 1.0-5.5 N #) [facility] CenterNrgekpvJOHPRSLUFD2824-30-05 01:56:00 Test Item Value Reference Range Interpretation Comments Segs-Bands # (test code = Segs-Bands #) 9.2 1.5-8.1 H [facility] CenterAajgfoaUTCJMKRSHY3164-37-95 01:56:00 Test Item Value Reference Range Interpretation Comments Monocytes (test code = Monocytes) 8.0 2.0-12.0 N [facility] CenterEcqhazyJIXEXRYEPF6719-70-63 01:56:00 Test Item Value Reference Range Interpretation Comments Atypical Lymphs (test code = Atypical 0.0 N Lymphs) [facility] CenterJodxxfnNDZVIXBNKO4323-42-16 01:56:00 Test Item Value Reference Range Interpretation Comments Plt Morph (test code = Normal (12/28/2012 N Plt Morph) 20:56:00) [facility] CenterFrufyyuJXJLCAHWI9441-28-93 01:56:00 Test Item Value Reference Range Interpretation Comments O2 Sat Frankie (test code = O2 Sat Frankie) 84.6 40.0-70.0 H [facility] CenterJjarflaAAUOVQUTO6385-45-80 01:56:00 Test Item Value Reference Range Interpretation Comments Temp Frankie (test code = Temp Frankie) 37.0 [facility] CenterHrdhncoGMTQYKTRJ7857-21-23 01:56:00 Test Item Value Reference Range Interpretation Comments BE Frankie (test code = -4 See_Comment L [Automa abdelrahman message] The BE Frankie) system which ge nerated this result transmit abdelrahman reference range : <=2. The reference range was not used to interpr et this result as gurpreet l/abnormal. [facility] CenterHtcfqesALZQNGZJU7776-95-53 01:56:00 Test Item Value Reference Range Interpretation Comments HCO3 Frankie (test code = HCO3 Frankie) 20 22-26 L [facility] CenterHetorkeDAZYSXWZK7896-64-80 01:56:00 Test Item Value Reference Range Interpretation Comments pO2 Frankie (test code = pO2 Frankie) 49 20-49 N [facility] CenterBircjjfAJGMOBNSE8203-34-48 01:56:00 Test Item Value Reference Range Interpretation Comments pH Frankie (test code = pH Frankie) 7.41 7.28-7.42 N [facility] CenterXfmiwctROEMPPHWA9072-68-94 01:56:00 Test Item Value Reference Range Interpretation Comments pCO2 Frankie (test code = pCO2 Frankie) 31 38-52 L [facility] CenterRywhnfjCOYUNEQCM5926-77-97 01:56:00 Test Item Value Reference Range Interpretation Comments Lactic Acid Lvl (test code = Lactic 4.4 0.5-2.2 H Acid Lvl) [facility] CenterLuavsrbANUQOXDJF9333-02-26 01:56:00 Test Item Value Reference Range Interpretation Comments Ethanol Lvl (test code = Ethanol Lvl) 79 [facility] CenterJpwktmiTUFIMHUGO3420-73-21 01:56:00 Test Item Value Reference Range Interpretation Comments Etoh (%) (test code = Etoh (%)) 0.079 [facility] CenterLoenewzEULTVMFTD8381-14-57 01:56:00 Test Item Value Reference Range Interpretation Comments eGFR (test code = eGFR) 93 [facility] CenterNincioqCJRCNUKMO0398-17-00 01:56:00 Test Item Value Reference Range Interpretation Comments BUN (test code = BUN) 6 7-22 L [facility] CenterJnxogvoZLMUWMEBP7780-36-39 01:56:00 Test Item Value Reference Range Interpretation Comments Creatinine Lvl (test code = Creatinine 1.1 0.5-1.4 N Lvl) [facility] CenterFoplopuEWVBDUBPC7524-93-83 01:56:00 Test Item Value Reference Range Interpretation Comments Glucose Lvl (test code = Glucose Lvl) 124 70-99 H [facility] CenterEqyjrsaFEZCYJTUP8437-74-19 01:56:00 Test Item Value Reference Range Interpretation Comments Sodium Lvl (test code = Sodium Lvl) 140 135-145 N [facility] CenterMnzfbdzXLRYHSEGP4532-86-36 01:56:00 Test Item Value Reference Range Interpretation Comments Chloride Lvl (test code = Chloride Lvl) 103 95-109 N [facility] CenterCpdcpexIDBOKUDNK0192-29-10 01:56:00 Test Item Value Reference Range Interpretation Comments CO2 (test code = CO2) 21 24-32 L [facility] CenterBtehzxsVJTSBIPJO8739-65-76 01:56:00 Test Item Value Reference Range Interpretation Comments Potassium Lvl (test code = Potassium 3.1 3.5-5.1 L Lvl) [facility] CenterXirhbqsFEVHQTHEM4247-93-28 01:56:00 Test Item Value Reference Range Interpretation Comments Calcium Lvl (test code = Calcium Lvl) 8.6 8.5-10.5 N [facility] CenterAhuqhhbQKQDSYMOP2861-86-98 01:56:00 Test Item Value Reference Range Interpretation Comments AGAP (test code = AGAP) 19.1 10.0-20.0 N [facility] CenterAqbytsmDTOJMYNMWZ4492-90-41 01:56:00 Test Item Value Reference Range Interpretation Comments Estimated % Lysis (test 1.3 See_Comment N [Au tomated message] The code = Estimated % system wh ich generated Lysis) this result tra nsmitted reference range : <=7.5. The reference r annemarie was not used to int erpret this result as normal/abnormal . [facility] CenterAutbfacZBSCICOWDE8873-55-26 01:56:00 Test Item Value Reference Range Interpretation Comments K-time (test code = K-time) 2.2 min 0.6-2.3 N [facility] CenterAceemyqFNLBHMROVE4972-61-11 01:56:00 Test Item Value Reference Range Interpretation Comments Angle (test code = Angle) 64 degrees 64-80 N [facility] CenterLyxfskaVBUHPWHGUV4377-53-79 01:56:00 Test Item Value Reference Range Interpretation Comments Max Amp (test code = Max Amp) 58 mm 52-71 N [facility] CenterKanlgzgWEWWRSEBVE4462-59-97 01:56:00 Test Item Value Reference Range Interpretation Comments R-time (test code = R-time) 0.8 min 0.4-0.7 H [facility] CenterBrzuaysNRMGASPARN8872-69-22 01:56:00 Test Item Value Reference Range Interpretation Comments Split Point (test code = Split Point) 0.6 min [facility] CenterHtupfhfAOKSAEOJOM6596-82-80 01:56:00 Test Item Value Reference Range Interpretation Comments Rapid TEG Sample Type Citrated Whole Blood (test code = Rapid TEG Sample Type) [facility] CenterCfzegcsDZDCDPSGGK3735-90-61 01:56:00 Test Item Value Reference Range Interpretation Comments ACT (TEG) (test code = ACT (TEG)) 121 s 86-118 H [facility] CenterKlivfpjYOJDAWSYAQ2204-32-67 01:56:00 Test Item Value Reference Range Interpretation Comments G-value (test code = G-value) 6.9 5.0-11.6 N [facility] CenterLrjtsngAXUVNBTHBL8230-97-06 01:56:00 Test Item Value Reference Range Interpretation Comments Hgb (test code = Hgb) 14.8 14.0-18.0 N [facility] CenterKsrdvkfILFPQWJJEK1309-06-54 01:56:00 Test Item Value Reference Range Interpretation Comments RBC (test code = RBC) 5.05 4.70-6.10 N [facility] CenterCeejejmABLRPUIRBZ8585-76-75 01:56:00 Test Item Value Reference Range Interpretation Comments Hct (test code = Hct) 44.5 42.0-54.0 N [facility] CenterJvnxkpwXPRELIUKEG8545-84-94 01:56:00 Test Item Value Reference Range Interpretation Comments WBC (test code = WBC) 11.8 3.7-10.4 H [facility] CenterSansvnwXCOHUDPNDT7562-25-26 01:56:00 Test Item Value Reference Range Interpretation Comments MPV (test code = MPV) 9.2 7.4-10.4 N [facility] CenterPwglzveLAWLKMGMXD1814-16-80 01:56:00 Test Item Value Reference Range Interpretation Comments MCHC (test code = MCHC) 33.2 32.0-36.0 N [facility] CenterNmtmbvwKOPYIDYNMJ6779-03-86 01:56:00 Test Item Value Reference Range Interpretation Comments MCV (test code = MCV) 88.1 80.0-94.0 N [facility] CenterFhfskurFPFZOWOLSY4949-71-79 01:56:00 Test Item Value Reference Range Interpretation Comments MCH (test code = MCH) 29.3 pg 27.0-31.0 N [facility] CenterGyqraccJDAKGFKJCL1019-80-44 01:56:00 Test Item Value Reference Range Interpretation Comments Platelet (test code = Platelet) 175 133-450 N [facility] CenterNltazefMQIOWYJGWQ4717-92-03 01:56:00 Test Item Value Reference Range Interpretation Comments RDW (test code = RDW) 12.4 11.5-14.5 N [facility] CenterNgvcocuKBOEVAXFGA1275-38-15 01:56:00 Test Item Value Reference Range Interpretation Comments Lymphocytes (test code = Lymphocytes) 14.0 20.0-40.0 L [facility] CenterGdribcbJTJMBXDDUV1093-16-02 01:56:00 Test Item Value Reference Range Interpretation Comments RBC Morph (test code = Normal (12/28/2012 N RBC Morph) 20:56:00) [facility] CenterUtvzpxaJCANBKUPWI5242-76-67 01:56:00 Test Item Value Reference Range Interpretation Comments Bands (test code = 6.0 See_Comment N [Automat ed message] The Bands) system which ge nerated this result transmit abdelrahman reference range : <=11.0. The reference r annemarie was not used to interpr et this result as gurpreet l/abnormal. [facility] CenterYzpvoywQEKVXAZKIO0802-61-46 01:56:00 Test Item Value Reference Range Interpretation Comments Segs (test code = Segs) 72.0 45.0-75.0 N [facility] CenterNlefhchITQGLKPLHJ9774-99-09 01:56:00 Test Item Value Reference Range Interpretation Comments Monocytes # (test code 0.9 See_Comment H [Aut omated message] The = Monocytes #) system which generated this result tra nsmitted reference range : <=0.8. The reference r annemarie was not used to int erpret this result as normal/abnormal . [facility] CenterWstfbneJDCFLKSBHW4609-62-54 01:56:00 Test Item Value Reference Range Interpretation Comments Lymphocytes # (test code = Lymphocytes 1.7 1.0-5.5 N #) [facility] CenterHitypfgSXQZYXXHJE0337-66-84 01:56:00 Test Item Value Reference Range Interpretation Comments Segs-Bands # (test code = Segs-Bands #) 9.2 1.5-8.1 H [facility] CenterJdksguaRJEPVJOYKF9249-43-74 01:56:00 Test Item Value Reference Range Interpretation Comments Monocytes (test code = Monocytes) 8.0 2.0-12.0 N [facility] CenterLynczqfEOUOKGCRLW0427-81-02 01:56:00 Test Item Value Reference Range Interpretation Comments Atypical Lymphs (test code = Atypical 0.0 N Lymphs) [facility] CenterKuyyyrsEOVJZYFZCB5023-62-78 01:56:00 Test Item Value Reference Range Interpretation Comments Plt Morph (test code = Normal (12/28/2012 N Plt Morph) 20:56:00) [facility] CenterUrxvywmLGAPDSFOA5203-64-45 01:56:00 Test Item Value Reference Range Interpretation Comments O2 Sat Frankie (test code = O2 Sat Frankie) 84.6 40.0-70.0 H [facility] CenterAgwmxozRTYENDAOT4272-43-41 01:56:00 Test Item Value Reference Range Interpretation Comments Temp Frankie (test code = Temp Frankie) 37.0 [facility] CenterEipgkkyIMFOOHYJP7328-57-10 01:56:00 Test Item Value Reference Range Interpretation Comments BE Frankie (test code = -4 See_Comment L [Automa abdelrahman message] The BE Frankie) system which ge nerated this result transmit abdelrahman reference range : <=2. The reference range was not used to interpr et this result as gurpreet l/abnormal. [facility] CenterAjtlkwtYKKMJYFPO4792-08-77 01:56:00 Test Item Value Reference Range Interpretation Comments HCO3 Frankie (test code = HCO3 Frankie) 20 22-26 L [facility] CenterHhqwgdvLUXBECVLQ9754-09-65 01:56:00 Test Item Value Reference Range Interpretation Comments pO2 Frankie (test code = pO2 Frankie) 49 20-49 N [facility] CenterKivjqlqHJBWCWRZR8237-13-92 01:56:00 Test Item Value Reference Range Interpretation Comments pH Frankie (test code = pH Frankie) 7.41 7.28-7.42 N [facility] CenterRafzbvjGJWNHRXRY9719-10-42 01:56:00 Test Item Value Reference Range Interpretation Comments pCO2 Frankie (test code = pCO2 Frankie) 31 38-52 L [facility] CenterUevzpkjDGQSWUENN2651-39-04 01:56:00 Test Item Value Reference Range Interpretation Comments Lactic Acid Lvl (test code = Lactic 4.4 0.5-2.2 H Acid Lvl) [facility] CenterHctmemmBRTBTTQGG5737-32-75 01:56:00 Test Item Value Reference Range Interpretation Comments Ethanol Lvl (test code = Ethanol Lvl) 79 [facility] CenterZecjddmNDZWFWDNC9821-44-28 01:56:00 Test Item Value Reference Range Interpretation Comments Etoh (%) (test code = Etoh (%)) 0.079 [facility] CenterIqfdfcjEMUZCAWCU6660-44-95 01:56:00 Test Item Value Reference Range Interpretation Comments eGFR (test code = eGFR) 93 [facility] CenterZqkqexkLWCFJJOZN1162-10-25 01:56:00 Test Item Value Reference Range Interpretation Comments BUN (test code = BUN) 6 7-22 L [facility] CenterRlafkivOWEMXSPEG3609-77-75 01:56:00 Test Item Value Reference Range Interpretation Comments Creatinine Lvl (test code = Creatinine 1.1 0.5-1.4 N Lvl) [facility] CenterKhiqhtaCMVLCASNV8260-21-50 01:56:00 Test Item Value Reference Range Interpretation Comments Glucose Lvl (test code = Glucose Lvl) 124 70-99 H [facility] CenterMqhfngaRNYSKFLYA2206-86-63 01:56:00 Test Item Value Reference Range Interpretation Comments Sodium Lvl (test code = Sodium Lvl) 140 135-145 N [facility] CenterMbhuzphNXREHKPGI3215-44-47 01:56:00 Test Item Value Reference Range Interpretation Comments Chloride Lvl (test code = Chloride Lvl) 103 95-109 N [facility] CenterVdwdvvhEAPWVGVWF0539-56-83 01:56:00 Test Item Value Reference Range Interpretation Comments CO2 (test code = CO2) 21 24-32 L [facility] CenterBykbahbLNMFZCAWW2067-90-71 01:56:00 Test Item Value Reference Range Interpretation Comments Potassium Lvl (test code = Potassium 3.1 3.5-5.1 L Lvl) [facility] CenterKaspvpeFNJTCQXNJ4973-84-92 01:56:00 Test Item Value Reference Range Interpretation Comments Calcium Lvl (test code = Calcium Lvl) 8.6 8.5-10.5 N [facility] CenterNsptjdrHEJOWBFAX3937-22-12 01:56:00 Test Item Value Reference Range Interpretation Comments AGAP (test code = AGAP) 19.1 10.0-20.0 N [facility] CenterRjvsqhsCDOFLUXBWR3250-20-80 01:56:00 Test Item Value Reference Range Interpretation Comments Estimated % Lysis (test 1.3 See_Comment N [Au tomated message] The code = Estimated % system wh ich generated Lysis) this result tra nsmitted reference range : <=7.5. The reference r annemarie was not used to int erpret this result as normal/abnormal . [facility] CenterLuvhztyGNMHQBBYDG1718-36-79 01:56:00 Test Item Value Reference Range Interpretation Comments K-time (test code = K-time) 2.2 min 0.6-2.3 N [facility] CenterAxotpyjECWWGREXHY5163-61-25 01:56:00 Test Item Value Reference Range Interpretation Comments Angle (test code = Angle) 64 degrees 64-80 N [facility] CenterZyupoolNWQCUCJCDV4193-45-00 01:56:00 Test Item Value Reference Range Interpretation Comments Max Amp (test code = Max Amp) 58 mm 52-71 N [facility] CenterPkytnegIPPMGIMYYK2133-63-87 01:56:00 Test Item Value Reference Range Interpretation Comments R-time (test code = R-time) 0.8 min 0.4-0.7 H [facility] CenterMyhewexTCLRNMSODT2979-83-05 01:56:00 Test Item Value Reference Range Interpretation Comments Split Point (test code = Split Point) 0.6 min [facility] CenterVzuijroILNGRMMRBC0733-80-40 01:56:00 Test Item Value Reference Range Interpretation Comments Rapid TEG Sample Type Citrated Whole Blood (test code = Rapid TEG Sample Type) [facility] CenterRpaaxyxJBGPJSXZQX6930-15-23 01:56:00 Test Item Value Reference Range Interpretation Comments ACT (TEG) (test code = ACT (TEG)) 121 s 86-118 H [facility] CenterNlaxrixMGWOBBRSUE9785-73-91 01:56:00 Test Item Value Reference Range Interpretation Comments G-value (test code = G-value) 6.9 5.0-11.6 N [facility] CenterDdrztkkAJTSTEMLPD1155-47-62 01:56:00 Test Item Value Reference Range Interpretation Comments Hgb (test code = Hgb) 14.8 14.0-18.0 N [facility] CenterJglevfrVORXFSDMXE2110-26-16 01:56:00 Test Item Value Reference Range Interpretation Comments RBC (test code = RBC) 5.05 4.70-6.10 N [facility] CenterIdstjdjUPVHIGAGXO6114-38-55 01:56:00 Test Item Value Reference Range Interpretation Comments Hct (test code = Hct) 44.5 42.0-54.0 N [facility] CenterRbzqoodWIKZFIMCDB3217-26-65 01:56:00 Test Item Value Reference Range Interpretation Comments WBC (test code = WBC) 11.8 3.7-10.4 H [facility] CenterGpnqcccWKFAFZDLYW1860-87-67 01:56:00 Test Item Value Reference Range Interpretation Comments MPV (test code = MPV) 9.2 7.4-10.4 N [facility] CenterRjisbgkAEEDPLIUEL9548-64-44 01:56:00 Test Item Value Reference Range Interpretation Comments MCHC (test code = MCHC) 33.2 32.0-36.0 N [facility] CenterOyctvawPWXLSPETQO3826-06-00 01:56:00 Test Item Value Reference Range Interpretation Comments MCV (test code = MCV) 88.1 80.0-94.0 N [facility] CenterPpwpuvrZKZOMJJYKW3338-00-35 01:56:00 Test Item Value Reference Range Interpretation Comments MCH (test code = MCH) 29.3 pg 27.0-31.0 N [facility] CenterKjtgsigLQLWKOFEIS6869-88-05 01:56:00 Test Item Value Reference Range Interpretation Comments Platelet (test code = Platelet) 175 133-450 N [facility] CenterVmivyokHHEMLZRTKY3167-63-93 01:56:00 Test Item Value Reference Range Interpretation Comments RDW (test code = RDW) 12.4 11.5-14.5 N [facility] CenterYvphltkCMSTGYJRSH2670-04-26 01:56:00 Test Item Value Reference Range Interpretation Comments Lymphocytes (test code = Lymphocytes) 14.0 20.0-40.0 L [facility] CenterIgbvilmBWSBWVFAHJ7638-31-00 01:56:00 Test Item Value Reference Range Interpretation Comments RBC Morph (test code = Normal (12/28/2012 N RBC Morph) 20:56:00) [facility] CenterLybzvvwUKQHNYTHXW0649-93-48 01:56:00 Test Item Value Reference Range Interpretation Comments Bands (test code = 6.0 See_Comment N [Automat ed message] The Bands) system which ge nerated this result transmit abdelrahman reference range : <=11.0. The reference r annemarie was not used to interpr et this result as gurpreet l/abnormal. [facility] CenterGewgdktSHDNXBHPZF1359-66-24 01:56:00 Test Item Value Reference Range Interpretation Comments Segs (test code = Segs) 72.0 45.0-75.0 N [facility] CenterJpozlkbCKCWYNXBHU6019-85-11 01:56:00 Test Item Value Reference Range Interpretation Comments Monocytes # (test code 0.9 See_Comment H [Aut omated message] The = Monocytes #) system which generated this result tra nsmitted reference range : <=0.8. The reference r annemarie was not used to int erpret this result as normal/abnormal . [facility] CenterFdnyrmcLVINGZJGQK0714-91-29 01:56:00 Test Item Value Reference Range Interpretation Comments Lymphocytes # (test code = Lymphocytes 1.7 1.0-5.5 N #) [facility]zfnctzVJPKFBJYAQ3543-63-82 01:56:00 Test Item Value Reference Range Interpretation Comments Segs-Bands # (test code = Segs-Bands #) 9.2 1.5-8.1 H [facility] CenterHfqkuooKASRHRVJNC8247-63-54 01:56:00 Test Item Value Reference Range Interpretation Comments Monocytes (test code = Monocytes) 8.0 2.0-12.0 N [facility] CenterTlyohdtCQMQMRBBJO0167-06-09 01:56:00 Test Item Value Reference Range Interpretation Comments Atypical Lymphs (test code = Atypical 0.0 N Lymphs) [facility] CenterCfwcestNFPSTFSSNZ4473-37-46 01:56:00 Test Item Value Reference Range Interpretation Comments Plt Morph (test code = Normal (12/28/2012 N Plt Morph) 20:56:00) [facility]VihitcjBILKJGPDP4176-57-27 01:56:00 Test Item Value Reference Range Interpretation Comments O2 Sat Frankie (test code = O2 Sat Frankie) 84.6 40.0-70.0 H [facility] CenterXqxfvmaIYKIJEBBC3572-74-35 01:56:00 Test Item Value Reference Range Interpretation Comments Temp Frankie (test code = Temp Frankie) 37.0 [facility] CenterGlkbnmwZTZBCYFFK1996-96-10 01:56:00 Test Item Value Reference Range Interpretation Comments BE Frankie (test code = -4 See_Comment L [Automa abdelrahman message] The BE Frankie) system which ge nerated this result transmit abdelrahman reference range : <=2. The reference range was not used to interpr et this result as gurpreet l/abnormal. [facility] CenterSwomwreOQPYZTPXG5023-76-24 01:56:00 Test Item Value Reference Range Interpretation Comments HCO3 Frankie (test code = HCO3 Frankie) 20 22-26 L [facility] CenterMkyyjbhWFXMODSZQ2766-33-11 01:56:00 Test Item Value Reference Range Interpretation Comments pO2 Frankie (test code = pO2 Frankie) 49 20-49 N [facility] CenterHrmlwjeWMSLMIGEN5645-69-41 01:56:00 Test Item Value Reference Range Interpretation Comments pH Frankie (test code = pH Frankie) 7.41 7.28-7.42 N [facility] CenterYxfwqrlAQIYQXZQF7138-65-63 01:56:00 Test Item Value Reference Range Interpretation Comments pCO2 Frankie (test code = pCO2 Frankie) 31 38-52 L [facility] CenterEoclgzyTNUGHTBQJ6559-91-58 01:56:00 Test Item Value Reference Range Interpretation Comments Lactic Acid Lvl (test code = Lactic 4.4 0.5-2.2 H Acid Lvl) [facility] CenterMxvlpsoHPIRXRFNZ1463-26-27 01:56:00 Test Item Value Reference Range Interpretation Comments Ethanol Lvl (test code = Ethanol Lvl) 79 [facility] CenterCpbpjijVIVAXNGFV2654-10-01 01:56:00 Test Item Value Reference Range Interpretation Comments Etoh (%) (test code = Etoh (%)) 0.079 [facility] CenterEyfeaagRQJBDKVSJ2132-93-30 01:56:00 Test Item Value Reference Range Interpretation Comments eGFR (test code = eGFR) 93 [facility] CenterCbgxgxyZAFBPFQIG7775-16-60 01:56:00 Test Item Value Reference Range Interpretation Comments BUN (test code = BUN) 6 7-22 L [facility] CenterSxnxqznYBREKWRPT3670-84-65 01:56:00 Test Item Value Reference Range Interpretation Comments Creatinine Lvl (test code = Creatinine 1.1 0.5-1.4 N Lvl) [facility] CenterUuuenlvDGJYXEZTE0873-87-86 01:56:00 Test Item Value Reference Range Interpretation Comments Glucose Lvl (test code = Glucose Lvl) 124 70-99 H [facility] CenterQdzvpniQLNLISWUL5602-47-37 01:56:00 Test Item Value Reference Range Interpretation Comments Sodium Lvl (test code = Sodium Lvl) 140 135-145 N [facility] CenterJrmxojpTILZQFSMK0674-77-64 01:56:00 Test Item Value Reference Range Interpretation Comments Chloride Lvl (test code = Chloride Lvl) 103 95-109 N [facility] CenterAbzjdsqGBDJEJEQE2941-93-22 01:56:00 Test Item Value Reference Range Interpretation Comments CO2 (test code = CO2) 21 24-32 L [facility] CenterHxfijscMJHFDRURV0155-44-24 01:56:00 Test Item Value Reference Range Interpretation Comments Potassium Lvl (test code = Potassium 3.1 3.5-5.1 L Lvl) [facility] CenterYzgcnocQCEDTYJDP2221-83-46 01:56:00 Test Item Value Reference Range Interpretation Comments Calcium Lvl (test code = Calcium Lvl) 8.6 8.5-10.5 N [facility] CenterVkuzqulBYBXBQREM2955-31-86 01:56:00 Test Item Value Reference Range Interpretation Comments AGAP (test code = AGAP) 19.1 10.0-20.0 N [facility] CenterTpfnokrARLIXHAYNI9941-86-92 01:56:00 Test Item Value Reference Range Interpretation Comments Estimated % Lysis (test 1.3 See_Comment N [Au tomated message] The code = Estimated % system wh ich generated Lysis) this result tra nsmitted reference range : <=7.5. The reference r annemarie was not used to int erpret this result as normal/abnormal . [facility] CenterIgvazrlGVZWRCVPHY8667-57-58 01:56:00 Test Item Value Reference Range Interpretation Comments K-time (test code = K-time) 2.2 min 0.6-2.3 N [facility] CenterXpuvftrXOPPYPKZNI9414-39-75 01:56:00 Test Item Value Reference Range Interpretation Comments Angle (test code = Angle) 64 degrees 64-80 N [facility] CenterCxnijmuHQAOMRBSZD7488-49-25 01:56:00 Test Item Value Reference Range Interpretation Comments Max Amp (test code = Max Amp) 58 mm 52-71 N [facility] CenterYtbllwaZZRVCIVBNT2291-01-87 01:56:00 Test Item Value Reference Range Interpretation Comments R-time (test code = R-time) 0.8 min 0.4-0.7 H [facility] CenterPyyztcfSKQAZNCAWC3488-26-33 01:56:00 Test Item Value Reference Range Interpretation Comments Split Point (test code = Split Point) 0.6 min [facility] CenterHmzcxjcSZGATVJTUG5266-34-62 01:56:00 Test Item Value Reference Range Interpretation Comments Rapid TEG Sample Type Citrated Whole Blood (test code = Rapid TEG Sample Type) [facility] CenterWdiwshhHDYNKZPKJW0315-82-17 01:56:00 Test Item Value Reference Range Interpretation Comments ACT (TEG) (test code = ACT (TEG)) 121 s 86-118 H [facility] CenterQeoabodIYUNGRAKSL6600-36-55 01:56:00 Test Item Value Reference Range Interpretation Comments G-value (test code = G-value) 6.9 5.0-11.6 N [facility] CenterKlmtrfhTKHEAAFFPW7777-60-87 01:56:00 Test Item Value Reference Range Interpretation Comments Hgb (test code = Hgb) 14.8 14.0-18.0 N [facility] CenterRladmguMMMTKDXPOY1492-10-54 01:56:00 Test Item Value Reference Range Interpretation Comments RBC (test code = RBC) 5.05 4.70-6.10 N [facility] CenterShkrqlcERCOJYBVHF1221-77-77 01:56:00 Test Item Value Reference Range Interpretation Comments Hct (test code = Hct) 44.5 42.0-54.0 N [facility] CenterZrhitgpHXQOTQDZXL1811-81-75 01:56:00 Test Item Value Reference Range Interpretation Comments WBC (test code = WBC) 11.8 3.7-10.4 H [facility] CenterAadvpmbJDJXOXWMGK1913-01-74 01:56:00 Test Item Value Reference Range Interpretation Comments MPV (test code = MPV) 9.2 7.4-10.4 N [facility] CenterUlynoybAKZNPLRYOG4791-99-47 01:56:00 Test Item Value Reference Range Interpretation Comments MCHC (test code = MCHC) 33.2 32.0-36.0 N [facility] CenterNtkwpmaKRKYBKOKFB0345-40-15 01:56:00 Test Item Value Reference Range Interpretation Comments MCV (test code = MCV) 88.1 80.0-94.0 N [facility] CenterOikfhyxURUDBCCGIZ8103-63-55 01:56:00 Test Item Value Reference Range Interpretation Comments MCH (test code = MCH) 29.3 pg 27.0-31.0 N [facility] CenterXghksenXGGTSZIWQX3249-69-93 01:56:00 Test Item Value Reference Range Interpretation Comments Platelet (test code = Platelet) 175 133-450 N [facility] CenterZetjcieZGOCXDVVWU7309-98-15 01:56:00 Test Item Value Reference Range Interpretation Comments RDW (test code = RDW) 12.4 11.5-14.5 N [facility] CenterMvbaybvPIRENHVUNZ8408-40-41 01:56:00 Test Item Value Reference Range Interpretation Comments Lymphocytes (test code = Lymphocytes) 14.0 20.0-40.0 L [facility] CenterYfuruhfRXZECFHNVJ2529-58-47 01:56:00 Test Item Value Reference Range Interpretation Comments RBC Morph (test code = Normal (12/28/2012 N RBC Morph) 20:56:00) [facility] CenterYgcqtvbHIJLTMMHAA8145-91-78 01:56:00 Test Item Value Reference Range Interpretation Comments Bands (test code = 6.0 See_Comment N [Automat ed message] The Bands) system which ge nerated this result transmit abdelrahman reference range : <=11.0. The reference r annemarie was not used to interpr et this result as gurpreet l/abnormal. [facility] CenterWjqhpanGSLNAYNGQO6020-02-33 01:56:00 Test Item Value Reference Range Interpretation Comments Segs (test code = Segs) 72.0 45.0-75.0 N [facility] CenterPmaadlmQKARNADTGH1576-07-71 01:56:00 Test Item Value Reference Range Interpretation Comments Monocytes # (test code 0.9 See_Comment H [Aut omated message] The = Monocytes #) system which generated this result tra nsmitted reference range : <=0.8. The reference r annemarie was not used to int erpret this result as normal/abnormal . [facility] CenterTbxwxqmUWOXBKEXHX0319-96-46 01:56:00 Test Item Value Reference Range Interpretation Comments Lymphocytes # (test code = Lymphocytes 1.7 1.0-5.5 N #) [facility] CenterBsgzyicCZOXEWRFTH4065-91-10 01:56:00 Test Item Value Reference Range Interpretation Comments Segs-Bands # (test code = Segs-Bands #) 9.2 1.5-8.1 H [facility] CenterShqmdixRRSGSGNTME8554-61-01 01:56:00 Test Item Value Reference Range Interpretation Comments Monocytes (test code = Monocytes) 8.0 2.0-12.0 N [facility] CenterDwrgilkCFDDLVGGYU8120-10-37 01:56:00 Test Item Value Reference Range Interpretation Comments Atypical Lymphs (test code = Atypical 0.0 N Lymphs) [facility] CenterGhgltymNYSITZJIML0338-56-25 01:56:00 Test Item Value Reference Range Interpretation Comments Plt Morph (test code = Normal (12/28/2012 N Plt Morph) 20:56:00) [facility]
--- NOTE | 2022-06-25 19:35 | RAD REPORT ---
EXAM DESCRIPTION: RAD - Chest Single View - 06/25/2022 7:25 pm CLINICAL HISTORY: COUGH COMPARISON: No comparisons FINDINGS: Lines: None. Lungs: No evidence of edema or pneumonia. Pleural: No significant pleural effusions or pneumothorax. Cardiac: The heart size is within normal limits. Mediastinum: Within normal limits. Bones: No acute fractures. Other: None IMPRESSION: No acute cardiopulmonary disease.
[2022-06-25 19:50] LABS: Absolute Lymphocytes (CBC) 1.2 K/uL (0.7-4.9); Hematocrit 42.6 % (39.6-49.0); Lymphocytes % 12.5 % (15.3-44.8); MCV 86.9 fL (80-100); MPV 8.2 fL (7.6-11.3)
[2022-06-25 19:54] LABS: Protime INR 1.04
[2022-06-25 20:27] LABS: ALT/SGPT 28 U/L (16-61); AST/SGOT 28 U/L (15-37); Alkaline Phosphatase 39 U/L (45-117); BUN Blood Urea Nitrogen 16 mg/dL (7-18); Bicarbonate 23 mmol/L (21-32); Bilirubin Direct 0.1 mg/dL (0-0.2); Bilirubin Total 0.5 mg/dL (0.2-1.0); Glomerular Filtration Rate 98 ml/min (=/>90); Glucose Level 85 mg/dL (74-106); Potassium 3.6 mmol/L (3.5-5.1); Protein, Total 7.2 g/dL (6.4-8.2); Sodium Level 134 mmol/L (136-145)
--- NOTE | 2022-06-25 20:34 | RAD REPORT ---
EXAM DESCRIPTION: CT - Head Brain Wo Cont - 06/25/2022 7:55 pm CLINICAL HISTORY: Confused COMPARISON: <Comparisons> TECHNIQUE: All CT scans are performed using dose optimization technique as appropriate and may inclu de automated exposure control or mA/KV adjustment according to patient size. FINDINGS: No intracranial hemorrhage, hydrocephalus or extra-axial fluid collection.No areas of brai n edema or evidence of midline shift. The paranasal sinuses and mastoids are clear. The calvarium is intact. IMPRESSION: No acute intracranial abnormality.
[2022-06-26 00:11] LABS: Urine Blood Negative (Negative); Urine Glucose Negative (Negative); Urine Protein Negative (Negative); Urine pH 5.5 (5.0-7.0)
--- NOTE | 2022-06-26 00:13 | EDPHYS ---
Physician Documentation [facility] Name: Alex Abbott Age: 32 yrs Sex: Male : 1990 Arrival Date: 06/25/2022 Time: 18:42 Bed 2 Private MD: ED Physician Troy Lopes HPI: 06/25 18:50 This 32 yrs old Male presents to ER via EMS with complaints of Altered Mental sherif Status. 18:50 The patient presents with confusion, decreased mental status, decreased responsiveness. sherif Onset: The symptoms/episode began/occurred just prior to arrival. Possible causes: drug use, alcohol, head injury, low blood sugar, seizure. Associated signs and symptoms: Pertinent positives: confusion, weakness. Current symptoms: In the emergency department the patient's symptoms have improved, mildly. Patient's baseline: Neuro: alert and fully oriented. The patient has experienced similar episodes in the past, multiple times. Historical: - Allergies: 18:50 Unable to obtain; ph - PMHx: 18:50 Schizophrenia; ph - PSHx: 18:50 arm surgery; ph - Immunization history:: Adult Immunizations unknown. - Social history:: Smoking status: unknown. - Family history:: not pertinent. ROS: 18:50 Cardiovascular: Negative for chest pain, palpitations, and edema, Abdomen/GI: Negative sherif for abdominal pain, nausea, vomiting, diarrhea, and constipation, : Negative for injury, bleeding, discharge, and swelling, MS/Extremity: Negative for injury and deformity, Skin: Negative for injury, rash, and discoloration. 18:50 Constitutional: Positive for malaise. 18:50 Neuro: Positive for altered mental status, weakness. Exam: 18:50 Head/Face: Normocephalic, atraumatic. Neck: Trachea midline, no thyromegaly or masses sherif palpated, and no cervical lymphadenopathy. Supple, full range of motion without nuchal rigidity, or vertebral point tenderness. No Meningismus. Chest/axilla: Normal chest wall appearance and motion. Nontender with no deformity. No lesions are appreciated. Back: No spinal tenderness. No costovertebral tenderness. Full range of motion. Skin: Warm, dry with normal turgor. Normal color with no rashes, no lesions, and no evidence of cellulitis. 18:50 Respiratory: the patient does not display signs of respiratory distress, Respirations: normal, no acute changes, Breath sounds: bronchial sounds, that are mild, are scattered. 18:50 Neuro: Orientation: unable to test, Mentation: slow to respond, confused, Memory: unable to test, Cranial nerves: grossly normal, is grossly normal based on the patient's age, Gait: not tested. Babinski testing is not performed, seizure activity, is not displayed by the patient. 19:18 ECG was reviewed by the Attending Physician. sherif Vital Signs: 18:44 BP 129 / 86; Pulse 81; Resp 18; Temp 97.8; Pulse Ox 99% on R/A; Weight 63.5 kg; ph 20:34 BP 117 / 69; Pulse 70; Resp 15; Pulse Ox 97% on R/A; Pain 0/10; ke1 22:22 BP 123 / 81; Pulse 65; Resp 15; Pulse Ox 96% ; Pain 0/10; ke1 23:15 BP 111 / 66; Pulse 59; Resp 15; Pulse Ox 97% ; ke1 MDM: 18:43 Patient medically screened. sherif 18:54 Differential Diagnosis: CVA, electrolyte abnormality, alcohol intoxication, sherif hypoglycemia, intracranial bleed, overdose, pneumonia, sepsis, TIA, UTI, volume depletion. Data reviewed: vital signs, nurses notes, EMS record, lab test result(s), EKG, radiologic studies, CT scan, plain films. Consideration of Admission/Observation Escalation of care including admission/observation considered. Test considered but Not performed: MRI: NO MRI BRAIN. Historians other than the Patient: EMS: FOUND IN [facility] PARKING LOT, POSSIBLE DRINKING COUGH MEDS. Care significantly affected by the following chronic conditions: SCHIZOPHRENIA. 19:29 ED course: pt signed out pending reassessment, serial exams, pt appears tired, but no bs3 focal deficits, ecg without wide qrs, prolonged qt. will reassess after labs, will do serial exmas. . 06/26 00:12 ED course: pt awake, ambulatory with steady gait, vitals wnl, alcohol level was bs3 elevated, but now pt reassessed, has decision making capacity, and is clinically sober, will dc, advised to dc substances. . 06/25 18:50 Order name: Acetaminophen; Complete Time: 20:37 [facility] 06/25 18:50 Order name: Basic Metabolic Panel; Complete Time: 20:37 [facility] 06/25 18:50 Order name: CBC with Diff [facility] 06/25 18:50 Order name: ETOH Level; Complete Time: 20:37 [facility] 06/25 18:50 Order name: Hepatic Function; Complete Time: 20:37 [facility] 06/25 18:50 Order name: PT-INR; Complete Time: 20:37 [facility] 06/25 18:50 Order name: Ptt, Activated; Complete Time: 20:37 [facility] 06/25 18:50 Order name: Salicylate; Complete Time: 20:37 [facility] 06/25 18:50 Order name: Urine Drug Screen [facility] 06/25 18:50 Order name: CT Head Brain wo Cont; Complete Time: 20:37 [facility] 06/25 18:50 Order name: Chest Single View XRAY; Complete Time: 20:37 [facility] 06/25 19:11 Order name: Glucose, Ancillary Testing; Complete Time: 20:37 EDMT 06/25 19:20 Order name: Troponin High Sensitivity [facility] 06/26 00:11 Order name: Urine Dipstick-Ancillary [facility] 06/25 18:50 Order name: EKG; Complete Time: 18:51 [facility] 06/25 18:50 Order name: EKG - Nurse/Tech; Complete Time: 18:57 [facility] 06/25 18:50 Order name: IV Saline Lock; Complete Time: 19:39 [facility] 06/25 18:50 Order name: Labs collected and sent; Complete Time: 19:39 [facility] 06/25 18:50 Order name: Suicide Screening ([place]); Complete Time: 00:36 [facility] 06/25 18:50 Order name: Urine Dipstick-Ancillary (obtain specimen); Complete Time: 00:13 [facility] 06/25 18:50 Order name: Seizure Precautions; Complete Time: 19:49 [facility] 06/25 18:59 Order name: Misc. Order: CALL POISON CONTROL FOLLOW ALL RECOMMENTATION; Complete Time: [facility] 19:20 EC/25 19:18 Rate is 78 beats/min. Rhythm is regular. QRS [place] is Normal. CT interval is normal. QRS sherif interval is normal. QT interval is normal. No Q waves. T waves are Inverted in leads III, aVF. No ST changes noted. Clinical impression: Abnormal EKG without significant change and No evidence of ischemia. Interpreted by me. Reviewed by me. Administered Medications: 19:38 Drug: NS 0.9% 1000 ml Route: IV; Rate: 1 bolus; Site: right forearm; ke1 19:38 Drug: D10 in Water [2 mL/kg] 250 ml Route: IVP; Site: right forearm; ke1 Disposition Summary: 06/26/22 00:13 Discharge Ordered Location: Home bs3 Problem: new bs3 Symptoms: have improved bs3 Condition: Stable bs3 Diagnosis - Hypoglycemia, unspecified bs3 - Abuse of other non-psychoactive substances bs3 - Altered mental status, unspecified bs3 - Schizophrenia, unspecified bs3 Followup: sherif - With: Private Physician - When: 2 - 3 days - Reason: Recheck today's complaints, Continuance of care, Re-evaluation by your physician Discharge Instructions: - Discharge Summary Sheet sherif - Confusion sherif - Hypoglycemia sherif - Substance Use Disorder sherif - Schizophrenia sherif - Blood Glucose Monitoring, Adult sherif - Hypoglycemia, [id number]-io-[id number] sherif - Substance Use Disorder and Mental Illness sherif - Supporting Someone With Schizophrenia sherif - Managing Schizophrenia sherif Forms: - Medication Reconciliation Form bs3 - Thank You Letter bs3 - Antibiotic Education bs3 - Prescription Opioid Use bs3 Signatures: Dispatcher [employer] Roshan Ramirez MD MD cha Hall, Patricia RN RN Suellen Melendez RN RN ke1 Troy Lopes MD MD bs3
--- NOTE | 2022-06-26 00:13 | ER ---
Nurse's Notes [facility] Name: Alex Abbott Age: 32 yrs Sex: Male : 1990 Arrival Date: 06/25/2022 Time: 18:42 Bed 2 Private MD: Diagnosis: Hypoglycemia, unspecified;Abuse of other non-psychoactive substances;Altered mental status, unspecified;Schizophrenia, unspecified Presentation: 06/25 18:44 Chief complaint: EMS states: Was passed out in the [facility] parking lot, BGL 65, pt refused ph oral glucose, squirted it on his chest instead, was uncooperative w/ EMS, PD on scene told pt he could either go to the hospital or go to correction so pt chose to come to the ER. Pt drowsy upon arrival to ED, states that he too"cough syrup". Coronavirus screen: Vaccine status:. Ebola Screen: No symptoms or risks identified at this time. Initial Sepsis Screen: Does the patient meet any 2 criteria? No. Patient's initial sepsis screen is negative. Does the patient have a suspected source of infection? No. Patient's initial sepsis screen is negative. Risk Assessment: Do you want to hurt yourself or someone else? Patient reports no desire to harm self or others. Onset of symptoms was June 25, 2022. 18:44 Method Of Arrival: EMS: [facility] 18:44 Acuity: ROCIO 2 ph Triage Assessment: 18:50 General: Appears in no apparent distress. Behavior is cooperative, quiet. Pain: Denies ph pain. Neuro: Level of Consciousness is listless, obtunded, Oriented to person, place. Cardiovascular: Capillary refill < 3 seconds in bilateral fingers Patient's skin is warm and dry. Respiratory: Airway is patent Respiratory effort is even, unlabored. Derm: Skin is pink, warm \\T\\ dry. Historical: - Allergies: 18:50 Unable to obtain; ph - PMHx: 18:50 Schizophrenia; ph - PSHx: 18:50 arm surgery; ph - Immunization history:: Adult Immunizations unknown. - Social history:: Smoking status: unknown. - Family history:: not pertinent. Screenin:[facility] ED Fall Risk Assessment (Adult) History of falling in the last 3 months, ph including since admission Yes- single mechanical fall (1 pt) Confusion or Disorientation Yes (5 pts) Intoxicated or Sedated Yes (3 pts) Impaired Gait Yes (1 pt) Mobility Assist Device Used No (0 pt) Altered Elimination No (0 pt) Score/Fall Risk Level 3 or more points = High Risk Oriented to surroundings, Maintained a safe environment, Hourly rounding (assess needs \\T\\ fall precautionary measures) done. Abuse screen: Denies threats or abuse. Denies injuries from another. 18:52 Nutritional screening: No deficits noted. Tuberculosis screening: No symptoms or risk ph factors identified. Assessment: 19:14 Reassessment: Poison Control notified, recommends to obtain tox labs, EKG, give fluids, iw repeat EKG in 4 hours, monitor for widening of QRS and if >100 give Bicarb or if QTC is >450 pt needs mag. monitor for possible seizures, agitation, tachycardia, hypotension, give benzos for seizures , observation time is 6-8 hours or until pt back to baseline . Case # [id number]. 19:49 Reassessment: Unable to screen for suicide at this time , patient sleeping and obtunded.ke1 22:24 Reassessment: Patient lying in bed, does not cooperate at this time for urine ke1 collection. 23:43 Reassessment: Poison control called to review patient EKG, and want to know if QRS is ke1 different from previous patient visit, after review by QRS has been the same and is at patient baseline. 06/26 00:20 Neuro: [place] Agitation-Sedation Scale (RASS): 0 - Alert and Calm Level of ke1 Consciousness is awake, alert, Oriented to person, place, time, situation. Vital Signs: 06/25 18:44 BP 129 / 86; Pulse 81; Resp 18; Temp 97.8; Pulse Ox 99% on R/A; Weight 63.5 kg; ph 20:34 BP 117 / 69; Pulse 70; Resp 15; Pulse Ox 97% on R/A; Pain 0/10; ke1 22:22 BP 123 / 81; Pulse 65; Resp 15; Pulse Ox 96% ; Pain 0/10; ke1 23:15 BP 111 / 66; Pulse 59; Resp 15; Pulse Ox 97% ; ke1 ED Course: 18:42 Patient arrived in ED. ph 18:43 Roshan Gomez MD is Attending Physician. sherif 18:49 Triage completed. ph 18:50 Arm band placed on Patient placed in an exam room, on a stretcher, on pulse oximetry. ph 18:51 Patient has correct armband on for positive identification. Bed in low position. Call ph light in reach. Side rails up X 1. Pulse ox on. NIBP on. 19:22 Suellen Melendez RN is Primary Nurse. ke1 19:27 Chest Single View XRAY In Process Unspecified. EDMS 19:28 Attending Physician role handed off by Roshan Gomez MD bs3 19:28 Troy Lopes MD is Attending Physician. bs3 19:38 Inserted saline lock: 22 gauge in right forearm, using aseptic technique. ke1 19:57 CT Head Brain wo Cont In Process Unspecified. EDMS 06/26 00:15 No provider procedures requiring assistance completed. ke1 00:21 IV discontinued. ke1 Administered Medications: 06/25 19:38 Drug: NS 0.9% 1000 ml Route: IV; Rate: 1 bolus; Site: right forearm; ke1 19:38 Drug: D10 in Water [2 mL/kg] 250 ml Route: IVP; Site: right forearm; ke1 Medication: 18:52 VIS not applicable for this client. ph Outcome: 06/26 00:13 Discharge ordered by . bs3 00:21 Discharged to home ambulatory. ke1 00:21 Condition: good 00:21 Instructed on the need for admit. 00:37 Patient left the ED. ke1 Signatures: Dispatcher [employer] EDNY Roshan Gomez MD MD cha Williams, Irene, RN RN Gauri Kiran RN RN Suellen Melendez RN RN ke1 Troy Lopes MD MD bs3 Corrections: (The following items were deleted from the chart) 06/25 19:20 19:14 Reassessment: Poison Control notified, recommends to obtain tox labs, EKG, give iw fluids, repeat EKG in 4 hours, monitor for widening of QRS and if >100 give Bicarb or if QTC is >450 pt needs mag. monitor for possible seizures, agitation, tachycardia, hypotension, give benzos for seizures , observation time is 6-8 hours or until pt back to baseline iw
[2022-06-26 00:31] LABS: Barbiturates NEGATIVE (NEGATIVE); Benzodiazepines NEGATIVE (NEGATIVE); METHAMPHETAM NEGATIVE (NEGATIVE); Methadone NEGATIVE (NEGATIVE); Opiates NEGATIVE (NEGATIVE); Phencyclidine POSITIVE (NEGATIVE); THC Cannibis NEGATIVE (NEGATIVE)
[2022-06-26 00:35] LABS: Cocaine ND (NEGATIVE)
[2022-06-26 00:50] VITALS: TEMP 97.8
[2022-06-26 01:07] VITALS: BP 111/66; O2SAT 97
--- NOTE | 2022-06-27 18:44 | EKG ---
Test Date: 2022-06-25 Test Time: 19:07:03 Airborne Sensor Specialist: NISA MEASUREMENT RESULTS: Intervals: Rate: 78 W[place]: 136 QRSD: 118 QT: 410 QTc: 467 [place]: P: 66 W[place]: 136 QRS: 67 T: -66 INTERPRETIVE STATEMENTS: Normal sinus rhythm Incomplete right bundle branch block Lateral infarct, age undetermined T wave abnormality, consider inferior ischemia Abnormal ECG No previous ECG available for comparison Electronically Signed On 06-27-22 18:40:27 RESEARCH TECHNOLOGIST by Valentin Asher
== END 2022-06-26 00:37 | disposition home or self-care (01) ==
LOC: ER 18:41 → MERGE 18:41 → ER 06-26 00:37
DX: R41.82 Altered mental status, unspecified (principal); E16.2 Hypoglycemia, unspecified; F55.8 Abuse of other non-psychoactive substances; F20.9 Schizophrenia, unspecified
CPT/HCPCS: 93005; 85025; 80048; 36415; 85610; 82947; 80076; 85730; 81003; 84484; 80307; 70450; 71045; 99284; J7030; G0480 ×3

== ENCOUNTER 2022-06-26 15:02 | Emergency (ER) | payer OTHER ==
--- NOTE | 2022-06-26 15:50 | EDPHYS ---
Physician Documentation [facility] Name: Alex Abbott Age: 32 yrs Sex: Male : 1990 Arrival Date: 06/26/2022 Time: 15:04 Bed 15 Private MD: ED Physician Nikita Stanford HPI: 06/26 15:30 This 32 yrs old Male presents to ER via EMS with complaints of Laceration. cp 15:30 The patient has a laceration related to: self inflicted. cp 15:30 Patient presents to ED by EMS accompanied by law enforcement with reportedly self cp inflicted facial lacerations. Patient admits to consuming OTC cough syrup and cutting his face to "make scars". Patient denies any suicidal and/or homicidal ideations. 15:40 Patient refuses any treatment at this time and is requesting to leave ED. cp Historical: - Allergies: 15:09 Unable to obtain; bp - PMHx: 15:09 Schizophrenia; bp - PSHx: 15:09 arm surgery; bp - Immunization history:: Adult Immunizations up to date. - Social history:: Smoking status: unknown. ROS: 15:33 Constitutional: Negative for body aches, chills, fever, poor PO intake. cp 15:33 Eyes: Negative for injury, pain, redness, and discharge. cp 15:33 ENT: Negative for drainage from ear(s), ear pain, sore throat, difficulty swallowing, difficulty handling secretions. 15:33 Cardiovascular: Negative for chest pain. 15:33 Respiratory: Negative for cough, shortness of breath, wheezing. 15:33 Abdomen/GI: Negative for abdominal pain, nausea, vomiting, and diarrhea. 15:33 Skin: Positive for laceration(s), of the face. 15:33 Neuro: Negative for headache. 15:33 Psych: Negative for auditory hallucinations, visual hallucinations, suicide gesture, suicidal ideation. 15:33 All other systems are negative. Exam: 15:35 Constitutional: The patient appears in no acute distress, alert, awake, cp non-diaphoretic, non-toxic, well developed, well nourished. 15:35 Head/face: Noted is a laceration(s), that is superficial, that is linear, of the right cheek and left cheek. 15:35 Eyes: Periorbital structures: appear normal, Pupils: constricted, bilaterally, Extraocular movements: intact throughout, Conjunctiva: normal, no exudate, no injection, Sclera: no appreciated abnormality, Lids and lashes: appear normal, bilaterally. 15:35 ENT: External ear(s): are unremarkable, Nose: is normal, Mouth: Lips: moist, Oral mucosa: moist, Posterior pharynx: Airway: no evidence of obstruction, patent. 15:35 Chest/axilla: Inspection: normal. 15:35 Cardiovascular: Rate: tachycardic, Rhythm: regular. 15:35 Respiratory: the patient does not display signs of respiratory distress, Respirations: normal, no use of accessory muscles, no retractions, labored breathing, is not present. 15:35 Abdomen/GI: Exam negative for discomfort, distension, guarding, Inspection: abdomen appears normal. 15:35 Back: pain, is absent, ROM is normal. 15:35 Neuro: Orientation: to person, situation, Mentation: able to follow commands, slow to respond, Motor: moves all fours, no focal weakness noted, Gait: is steady. Vital Signs: 15:07 BP 156 / 102; Pulse 110; Resp 20; Temp 98; Pulse Ox 96% ; bp 15:11 BP 146 / 98; Pulse 110; Resp 17; Pulse Ox 98% ; bp MDM: 15:06 Patient medically screened. cp 15:35 Differential diagnosis: superficial laceration, suicide gesture, self mutilation. cp 15:50 Data reviewed: vital signs, nurses notes. cp 15:50 Test considered but Not performed: Labs: toxic panel. Care significantly affected by cp the following chronic conditions: Schizophrenia, drug use. 06/26 15:10 Order name: EKG; Complete Time: 15:11 06/26 15:10 Order name: EKG - Nurse/Tech 06/26 15:10 Order name: IV Saline Lock 06/26 15:10 Order name: Labs collected and sent 06/26 15:10 Order name: Suicide Screening ([place]) 06/26 15:10 Order name: Urine Dipstick-Ancillary (obtain specimen) cp Administered Medications: 15:55 Not Given (Patient Refused): NS 0.9% 1000 ml IV at 1 bolus Per protocol; 1000 mL bolus bp Disposition Summary: 06/26/22 15:50 Discharge Ordered Location: Home cp Problem: new cp Symptoms: are unchanged cp Condition: Stable cp Diagnosis - Abuse of other non-psychoactive substances cp - Laceration without foreign body of other part of head, initial encounter cp Followup: cp - With: Private Physician - When: 1 - 2 days - Reason: Recheck today's complaints Discharge Instructions: - Discharge Summary Sheet cp - Facial Laceration cp - Preventing [id number] Drug Misuse cp Forms: - Medication Reconciliation Form cp - Thank You Letter cp - Antibiotic Education cp - Prescription Opioid Use cp Addendum: 06/28/2022 07:14 Co-signature as Attending Physician, Nikita Stanford MD I reviewed the patient's care r n provided by the Advanced Practice Provider and agree with the diagnosis and treatment plan. Signatures: Dispatcher [employer] EDNikita Tate MD MD rn Roshan Wilson PA PA King Severino, RN RN bp
--- NOTE | 2022-06-26 15:50 | ER ---
Nurse's Notes [facility] Name: Alex Abbott Age: 32 yrs Sex: Male : 1990 Arrival Date: 06/26/2022 Time: 15:04 Bed 15 Private MD: Diagnosis: Abuse of other non-psychoactive substances;Laceration without foreign body of other part of head, initial encounter Presentation: 06/26 15:07 Chief complaint: EMS states: PICKED UP INTOXICATED IN FRONT OF WURST HAUS, SELF bp INFLICTED LAC TO BOTH CHEEKS. Coronavirus screen: At this time, the client does not indicate any symptoms associated with coronavirus-19. Ebola Screen: No symptoms or risks identified at this time. Complicating Factors: There are no complicating factors for this patient. Initial Sepsis Screen: Does the patient meet any 2 criteria? HR > 90 bpm. No. Patient's initial sepsis screen is negative. Does the patient have a suspected source of infection? No. Patient's initial sepsis screen is negative. Risk Assessment: Do you want to hurt yourself or someone else? Patient reports no desire to harm self or others. Other: PT DENIES, STATES ATTEMPT AT SELF-SCARIFICATION. Onset of symptoms is unknown. Care prior to arrival: PT REFUSING. 15:07 Method Of Arrival: EMS: [facility] bp 15:07 Acuity: ROCIO 3 bp Triage Assessment: 15:09 General: Appears in no apparent distress. Behavior is agitated, anxious, uncooperative. bp Pain: Denies pain. EENT: No deficits noted. Neuro: No deficits noted. Cardiovascular: No deficits noted. Respiratory: No deficits noted. GI: No signs and/or symptoms were reported involving the gastrointestinal system. : No signs and/or symptoms were reported regarding the genitourinary system. Derm: No deficits noted. Musculoskeletal: No deficits noted. Injury Description: Laceration sustained to right jaw and left jaw is superficial. Historical: - Allergies: 15:09 Unable to obtain; bp - PMHx: 15:09 Schizophrenia; bp - PSHx: 15:09 arm surgery; bp - Immunization history:: Adult Immunizations up to date. - Social history:: Smoking status: unknown. Screenin:10 [facility] ED Fall Risk Assessment (Adult) History of falling in the last 3 months, bp including since admission No falls in past 3 months (0 pts). Abuse screen: Denies threats or abuse. Denies injuries from another. Nutritional screening: No deficits noted. Tuberculosis screening: No symptoms or risk factors identified. Assessment: 15:10 General: SEE TRIAGE NOTE. bp 15:56 Reassessment: PT CONTINUES TO REFUSE ALL CARE. PROVIDER AT BEDSIDE. PT ENDORSES DRUG bp USE BUT CONTINUES TO DENY SI AND AOx3. PT ADVISED AGAINST DRUG ABUSE, AMBULATED OFF THE UNIT WITH STEADY GAIT. Vital Signs: 15:07 BP 156 / 102; Pulse 110; Resp 20; Temp 98; Pulse Ox 96% ; bp 15:11 BP 146 / 98; Pulse 110; Resp 17; Pulse Ox 98% ; bp ED Course: 15:04 Patient arrived in ED. bp 15:06 Roshan Wilson PA is PHCP. cp 15:06 Nikita Stanford MD is Attending Physician. cp 15:09 Triage completed. bp 15:09 Arm band placed on. bp 15:10 Patient has correct armband on for positive identification. Bed in low position. Call bp light in reach. Side rails up X2. 15:13 King Moore, RN is Primary Nurse. bp 15:58 No provider procedures requiring assistance completed. Patient did not have IV access bp during this emergency room visit. Administered Medications: 15:55 Not Given (Patient Refused): NS 0.9% 1000 ml IV at 1 bolus Per protocol; 1000 mL bolus bp Medication: 15:10 VIS not applicable for this client. bp Outcome: 15:50 Discharge ordered by MD. cp 15:58 Discharged to home ambulatory. bp 15:58 Condition: stable 15:58 Discharge instructions given to patient. 15:58 Patient left the ED. bp Signatures: Roshan Wilson PA PA cp King Moore, RN RN bp
--- OUTSIDE RECORDS SUMMARY | 2022-06-26 15:50 | XMS REPORT | Continuity of Care Document ---
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 22:55:00 FLIGHT COORDINATOR, PRN Line Flush Sodium 2018-1 No 250 mL, [facility] Chloride 2-14 Route: l 0.9% IV 04:56: IVPB, Start date: 04/12/18 22:56:00 FLIGHT COORDINATOR, Duration: 30 day, Stop date: 05/12/18 22:55:00 FLIGHT COORDINATOR, PRN Line Flush Sodium 2018-1 No 250 mL, [facility] Chloride 2-14 Route: l 0.9% IV 04:56: IVPB, Start date: 04/12/18 22:56:00 FLIGHT COORDINATOR, Duration: 30 day, Stop date: 05/12/18 22:55:00 FLIGHT COORDINATOR, PRN Line Flush Sodium 2018-1 No 250 mL, [facility] Chloride 2-14 Route: l 0.9% IV 04:56: IVPB, Dawn 00 Start date: 04/12/18 22:56:00 FLIGHT COORDINATOR, Duration: 30 day, Stop date: 05/12/18 22:55:00 FLIGHT COORDINATOR, PRN Line Flush Sodium 2018-1 No 250 mL, [facility] Chloride 2-14 Route: l 0.9% IV 04:56: IVPB, Dawn 00 Start date: 04/12/18 22:56:00 FLIGHT COORDINATOR, Duration: 30 day, Stop date: 05/12/18 22:55:00 FLIGHT COORDINATOR, PRN Line Flush NS 1,000 mL 2018- No 1,000 mL, M emoria 2-14 Rate: 100 l 04:08: ml/hr, Bryson 00 Infuse over: 10 hr, Route: IV, Dosing Weight 54.091 kg, Total Volume: 1,000, Start date: 04/12/18 22:08:00 FLIGHT COORDINATOR, Duration: 30 day, Stop date: 05/12/18 22:07:00 FLIGHT COORDINATOR, 1.63, m2 NS 1,000 mL 2017-05 No 1,000 mL, M emoria 2-14 Rate: 100 l 04:08: ml/hr, Bryson 00 Infuse over: 10 hr, Route: IV, Dosing Weight 54.091 kg, Total Volume: 1,000, Start date: 04/12/18 22:08:00 FLIGHT COORDINATOR, Duration: 30 day, Stop date: 05/12/18 22:07:00 FLIGHT COORDINATOR, 1.63, m2 NS 1,000 mL 2017-05 No 1,000 mL, M emoria 2-14 Rate: 100 l 04:08: ml/hr, Bryson 00 Infuse over: 10 hr, Route: IV, Dosing Weight 54.091 kg, Total Volume: 1,000, Start date: 04/12/18 22:08:00 FLIGHT COORDINATOR, Duration: 30 day, Stop date: 05/12/18 22:07:00 FLIGHT COORDINATOR, 1.63, m2 NS 1,000 mL 2017-05 No 1,000 mL, M emoria 2-14 Rate: 100 l 04:08: ml/hr, Dawn 00 Infuse over: 10 hr, Route: IV, Dosing Weight 54.091 kg, Total Volume: 1,000, Start date: 04/12/18 22:08:00 FLIGHT COORDINATOR, Duration: 30 day, Stop date: 05/12/18 22:07:00 FLIGHT COORDINATOR, 1.63, m2 NS 1,000 mL 2017-05 No 1,000 mL, M emoria 2-14 Rate: 100 l 04:08: ml/hr, Dawn 00 Infuse over: 10 hr, Route: IV, Dosing Weight 54.091 kg, Total Volume: 1,000, Start date: 04/12/18 22:08:00 FLIGHT COORDINATOR, Duration: 30 day, Stop date: 05/12/18 22:07:00 FLIGHT COORDINATOR, 1.63, m2 NS 1,000 mL 2018- No 1,000 mL, M emoria 2-14 Rate: 100 l 04:08: ml/hr, Dawn 00 Infuse over: 10 hr, Route: IV, Dosing Weight 54.091 kg, Total Volume: 1,000, Start date: 04/12/18 22:08:00 FLIGHT COORDINATOR, Duration: 30 day, Stop date: 05/12/18 22:07:00 FLIGHT COORDINATOR, 1.63, m2 NS 1,000 mL 2017- No 1,000 mL, M emoria 2-14 Rate: 100 l 04:08: ml/hr, Bryson 00 Infuse over: 10 hr, Route: IV, Dosing Weight 54.091 kg, Total Volume: 1,000, Start date: 04/12/18 22:08:00 FLIGHT COORDINATOR, Duration: 30 day, Stop date: 05/12/18 22:07:00 FLIGHT COORDINATOR, 1.63, m2 NS 1,000 mL 2017-05 No 1,000 mL, M emoria 2-14 Rate: 100 l 04:08: ml/hr, Dawn 00 Infuse over: 10 hr, Route: IV, Dosing Weight 54.091 kg, Total Volume: 1,000, Start date: 04/12/18 22:08:00 FLIGHT COORDINATOR, Duration: 30 day, Stop date: 05/12/18 22:07:00 FLIGHT COORDINATOR, 1.63, m2 NS 1,000 mL 2018- No 1,000 mL, M emoria 2-14 Rate: 100 l 04:08: ml/hr, Bryson 00 Infuse over: 10 hr, Route: IV, Dosing Weight 54.091 kg, Total Volume: 1,000, Start date: 04/12/18 22:08:00 FLIGHT COORDINATOR, Duration: 30 day, Stop date: 05/12/18 22:07:00 FLIGHT COORDINATOR, 1.63, m2 NS 1,000 mL 2017- No 1,000 mL, M emoria 2-14 Rate: 100 l 04:08: ml/hr, Dawn 00 Infuse over: 10 hr, Route: IV, Dosing Weight 54.091 kg, Total Volume: 1,000, Start date: 04/12/18 22:08:00 FLIGHT COORDINATOR, Duration: 30 day, Stop date: 05/12/18 22:07:00 FLIGHT COORDINATOR, 1.63, m2 Potassium 2017-05 No Notes: [facility] a Chloride 2-14 (Same as: l 04:02: KCL) Dawn 00 Infuse no faster than 10 mEq/hr [...] 2-14 (Same as: l odium 04:02: Phos-NaK) Dawn phosphate 00 Each 1.5 250 mg-280 gm pkt has mg-160 mg 250mg oral powder phosphorou for s. Mix reconstitut w/2.5oz ion water and stir. Calcium 2017-05 No Notes: [facility] Gluconate 2-14 WASTE: F/P l 04:02: - Sink; E - [employer] Trash Bin Magnesium 2017-05 No Notes: [facility] a Oxide 2-14 (Same as: l 04:02: Mag-Ox Dawn 00 400) Magnesium oxide 028yc=387z g elemental magnesium Dose=____m g magnesium oxide [...] 2-14 not exceed l 04:02: 4 gm/day. Dawn 00 (Same as: Tylenol) Nystatin 2017-05 No Notes: Memoria 100 UNT/MG 2-14 (Same l Topical 04:02: as:Mycosta Herm boaz Powder 00 tin, Nilstat) For external use only. Potassium 2017-05 No Notes: [facility] a Chloride 2-14 (Same as: l 04:02: KCL) Dawn 00 Infuse no faster than 10 mEq/hr if given peripheral ly. sodium 2017-05 No Notes: [facility] phosphate 2-14 Infuse l 04:02: over 4 Dawn 00 hour. Do not infuse phosphorou s [...] WASTE: F/P l 04:02: - Sink; E Dawn 00 - [employer] Trash Bin potassium 2017-05 [...] Oxide 2-14 (Same as: l 04:02: Mag-Ox Dawn 00 400) Magnesium oxide 198aq=957e g elemental magnesium Dose=____m g magnesium oxide (___mg elemental magnesium) Calcium 2017-05 No Notes: [facility] Carbonate 2-14 (Same As: l 500 MG 04:02: Tums) Dawn Chewable 00 Calcium Tablet Carbonate 500 mg = 200 mg elemental calcium Dose = mg calcium carbonate ( mg elemental calcium) Saline 2017-05 No Notes: [facility] Flush 0.9% 2-14 Same as: l 04:02: BD Bryson 00 Posiflush Sterile Acetaminoph 2017-05 No Notes: Do M emoria en 2-14 not exceed l 04:02: 4 gm/day. Dawn 00 (Same as: Tylenol) Nystatin 2017-05 No Notes: [facility] 100 UNT/MG 2-14 (Same l Topical 04:02: as:Mycosta Herm boaz Powder 00 tin, Nilstat) For external use only. Potassium 2017-05 No Notes: [facility] a Chloride 2-14 (Same as: l 04:02: KCL) Dawn Infuse no faster than 10 mEq/hr if [...] WASTE: F/P l 04:02: - Sink; E Dawn 00 - [employer] Trash Bin Magnesium 2017-05 No Notes: [facility] a Oxide 2-14 (Same as: l 04:02: Mag-Ox Dawn 00 400) Magnesium oxide 600lr=142s g elemental magnesium Dose=____m g magnesium oxide [...] 2-14 not exceed l 04:02: 4 gm/day. Dawn 00 (Same as: Tylenol) Nystatin 2017-05 No Notes: [facility] 100 UNT/MG 2-14 (Same l Topical 04:02: as:Mycosta Herm boaz Powder 00 tin, Nilstat) For external use only. Potassium 2017-05 No Notes: [facility] a Chloride 2-14 (Same as: l 04:02: KCL) Dawn 00 Infuse no faster than 10 mEq/hr if given peripheral ly. sodium 2017-05 No Notes: [facility] phosphate 2-14 Infuse l 04:02: over 4 Dawn 00 hour. Do not infuse phosphorou s [...] 2-14 (Same as: l odium 04:02: Phos-NaK) Dawn phosphate 00 Each 1.5 250 mg-280 gm pkt has mg-160 mg 250mg oral powder phosphorou for s. Mix reconstitut w/2.5oz ion water and stir. Calcium 2017-05 No Notes: [facility] Gluconate 2-14 WASTE: F/P l 04:02: - Sink; E Bryson - [employer] Trash Bin Magnesium 2017-05 No Notes: [facility] a Oxide 2-14 (Same as: l 04:02: Mag-Ox Bryson 00 400) Magnesium oxide 328js=805t g elemental magnesium Dose=____m g magnesium oxide (___mg elemental magnesium) Calcium 2017-05 No Notes: [facility] Carbonate 2-14 (Same As: l 500 MG 04:02: Tums) Bryson Chewable 00 Calcium Tablet Carbonate 500 mg = 200 mg elemental calcium Dose = mg calcium carbonate ( mg elemental calcium) Saline 2017-05 No Notes: [facility] Flush 0.9% 2-14 Same as: l 04:02: BD Dawn 00 Posiflush Sterile Acetaminoph 2017-05 No Notes: Do M emoria en 2-14 not exceed l 04:02: 4 gm/day. Bryson 00 (Same as: Tylenol) Nystatin 2017-05 No Notes: [facility] 100 UNT/MG 2-14 (Same l Topical 04:02: as:Mycosta Herm boaz Powder 00 tin, Nilstat) For external use only. Potassium 2017-05 No Notes: [facility] a Chloride 2-14 (Same as: l 04:02: KCL) Dawn 00 Infuse no faster than 10 mEq/hr [...] 2-14 (Same as: l odium 04:02: Phos-NaK) Dawn phosphate 00 Each 1.5 250 mg-280 gm pkt has mg-160 mg 250mg oral powder phosphorou for s. Mix reconstitut w/2.5oz ion water and stir. Calcium 2017-05 No Notes: [facility] Gluconate 2-14 WASTE: F/P l 04:02: - Sink; E Bryson - [employer] Trash Bin Magnesium 2017-05 No Notes: [facility] a Oxide 2-14 (Same as: l 04:02: Mag-Ox Dawn 00 400) Magnesium oxide 111of=615g g elemental magnesium Dose=____m g magnesium oxide (___mg elemental magnesium) Calcium 2017-05 No Notes: [facility] Carbonate 2-14 (Same As: l 500 MG 04:02: Tums) Dawn Chewable 00 Calcium Tablet Carbonate 500 mg = 200 mg elemental calcium Dose = mg calcium carbonate ( mg elemental calcium) Saline 2017-05 No Notes: [facility] Flush 0.9% 2-14 Same as: l 04:02: BD Dawn 00 Posiflush Sterile Acetaminoph 2017-05 No Notes: Do M emoria en 2-14 not exceed l 04:02: 4 gm/day. Dawn 00 (Same as: Tylenol) Nystatin 2017-05 No Notes: Mem[facility] 100 UNT/MG 2-14 (Same l Topical 04:02: as:Mycosta Herm boaz Powder 00 tin, Nilstat) For external use only. Potassium 2017-05 No Notes: [facility] a Chloride 2-14 (Same as: l 04:02: KCL) Dawn 00 Infuse no faster than 10 mEq/hr [...] phosphate 2-14 (Same as: l 04:02: K Dawn 00 Phosphate. ) Do not infuse phosphorou [...] 04:02: Mag-Ox Bryson 00 400) Magnesium oxide 257cu=520r g elemental magnesium Dose=____m g magnesium oxide (___mg elemental magnesium) Calcium 2017-05 No Notes: [facility] Carbonate 2-14 (Same As: l 500 MG 04:02: Tums) Dawn Chewable 00 Calcium Tablet Carbonate 500 mg = 200 mg elemental calcium Dose = mg calcium carbonate ( mg elemental calcium) Saline 2017-05 No Notes: [facility] Flush 0.9% 2-14 Same as: l 04:02: BD Dawn 00 Posiflush Sterile Acetaminoph 2017-05 No Notes: [...] phosphate 2-14 (Same as: l 04:02: K Dawn 00 Phosphate. ) Do not infuse phosphorou [...] 2-14 (Same as: l odium 04:02: Phos-NaK) Dawn phosphate 00 Each 1.5 250 mg-280 gm pkt has mg-160 mg 250mg oral powder phosphorou for s. Mix reconstitut w/2.5oz ion water and stir. Calcium 2017-05 No Notes: [facility] Gluconate 2-14 WASTE: F/P l 04:02: - Sink; E Bryson - [employer] Trash Bin Magnesium 2017-05 No Notes: [facility] a Oxide 2-14 (Same as: l 04:02: Mag-Ox Dawn 00 400) Magnesium oxide 970ht=056b g elemental magnesium Dose=____m g magnesium oxide (___mg elemental magnesium) Calcium 2017-05 No Notes: [facility] Carbonate 2-14 (Same As: l 500 MG 04:02: Tums) Bryson Chewable 00 Calcium Tablet Carbonate 500 mg = 200 mg elemental calcium Dose = mg calcium carbonate ( mg elemental calcium) Saline 2017-05 No Notes: [facility] Flush 0.9% 2-14 Same as: l 04:02: BD Dawn 00 Posiflush Sterile Acetaminoph 2017-05 No Notes: [...] phosphate 2-14 Infuse l 04:02: over 4 Dawn 00 hour. Do not infuse phosphorou s concurrent ly in the same line as TPN or IVF that contains calcium. For double lumen central lines, phosphorou s may be infused in a separate lumen from TPN. potassium 2017-05 No Notes: [facility] a phosphate 2-14 (Same as: l 04:02: K Dawn 00 Phosphate. ) Do not infuse phosphorou [...] WASTE: F/P l 04:02: - Sink; E Dawn 00 - [employer] Trash Bin Magnesium 2017-05 No Notes: [facility] a Oxide 2-14 (Same as: l 04:02: Mag-Ox Dawn 00 400) Magnesium oxide 259zr=081d g elemental magnesium Dose=____m g magnesium oxide (___mg elemental magnesium) Calcium 2017-05 No Notes: [facility] Carbonate 2-14 (Same As: l 500 MG 04:02: Tums) Dawn Chewable 00 Calcium Tablet Carbonate 500 mg = 200 mg elemental calcium Dose = mg calcium carbonate ( mg elemental calcium) Saline 2017-05 No Notes: [facility] Flush 0.9% 2-14 Same as: l 04:02: BD Dawn 00 Posiflush Sterile Acetaminoph 2017-05 No Notes: Do M emoria en 2-14 not exceed l 04:02: 4 gm/day. Dawn 00 (Same as: Tylenol) Nystatin 2017-05 No Notes: Mem[facility] 100 UNT/MG 2-14 (Same l Topical 04:02: as:Mycosta Herm boaz Powder 00 tin, Nilstat) For external use only. Potassium 2017-05 No Notes: [facility] a Chloride 2-14 (Same as: l 04:02: KCL) Dawn 00 Infuse no faster than 10 mEq/hr if given peripheral ly. sodium 2017-05 No Notes: [facility] phosphate 2-14 Infuse l 04:02: over 4 Dawn 00 hour. Do not infuse phosphorou s [...] 2-14 (Same as: l odium 04:02: Phos-NaK) Dawn phosphate 00 Each 1.5 250 mg-280 gm pkt has mg-160 mg 250mg oral powder phosphorou for s. Mix reconstitut w/2.5oz ion water and stir. Calcium 2017-05 No Notes: [facility] Gluconate 2-14 WASTE: F/P l 04:02: - Sink; E Dawn 00 - [employer] Trash Bin Magnesium 2017-05 No Notes: [facility] a Oxide 2-14 (Same as: l 04:02: Mag-Ox Bryson 00 400) Magnesium oxide 275oz=567u g elemental magnesium Dose=____m g magnesium oxide (___mg elemental magnesium) Calcium 2017-05 No Notes: [facility] Carbonate 2-14 (Same As: l 500 MG 04:02: Tums) Dawn Chewable 00 Calcium Tablet Carbonate 500 mg = 200 mg elemental calcium Dose = mg calcium carbonate ( mg elemental calcium) Saline 2017-05 No Notes: [facility] Flush 0.9% 2-14 Same as: l 04:02: BD Bryson 00 Posiflush Sterile Acetaminoph 2017-05 No Notes: Do M emoria en 2-14 not exceed l 04:02: 4 gm/day. Dawn 00 (Same as: Tylenol) Nystatin 2017-05 No [...] phosphate 2-14 (Same as: l 04:02: K Dawn 00 Phosphate. ) Do not infuse phosphorou [...] WASTE: F/P l 04:02: - Sink; E Dawn - [employer] Trash Bin Magnesium 2017-05 No Notes: [facility] a Oxide 2-14 (Same as: l 04:02: Mag-Ox Bryson 00 400) Magnesium oxide 848ht=137c g elemental magnesium Dose=____m g magnesium oxide (___mg elemental magnesium) Calcium 2017-05 No Notes: [facility] Carbonate 2-14 (Same As: l 500 MG 04:02: Tums) Bryson Chewable 00 Calcium Tablet Carbonate 500 mg = 200 mg elemental calcium Dose = mg calcium carbonate ( mg elemental calcium) Saline 2017-05 No Notes: [facility] Flush 0.9% 2-14 Same as: l 04:02: BD Dawn 00 Posiflush Sterile Acetaminoph 2017-05 No Notes: [...] Weight 54.091, kg, Start date: 04/12/18 21:26:00 FLIGHT COORDINATOR, Stop date: 04/12/18 21:26:00 FLIGHT COORDINATOR Keppra 2018-1 No 1,000 mg, Memori a 2-14 Route: l 03:26: IVPB, Dawn 00 ONCE, Dosing Weight 54.091, kg, Start date: 04/12/18 21:26:00 FLIGHT COORDINATOR, Stop date: 04/12/18 21:26:00 FLIGHT COORDINATOR Keppra 2018-1 No 1,000 mg, Memori a 2-14 Route: l 03:26: IVPB, Dawn 00 ONCE, Dosing Weight 54.091, kg, Start date: 04/12/18 21:26:00 FLIGHT COORDINATOR, Stop date: 04/12/18 21:26:00 FLIGHT COORDINATOR Keppra 2018-1 No 1,000 mg, Memori a 2-14 Route: l 03:26: IVPB, Dawn 00 ONCE, Dosing Weight 54.091, kg, Start date: 04/12/18 21:26:00 FLIGHT COORDINATOR, Stop date: 04/12/18 21:26:00 FLIGHT COORDINATOR Keppra 2018-1 No 1,000 mg, Memori a 2-14 Route: l 03:26: IVPB, Bryson 00 ONCE, Dosing Weight 54.091, kg, Start date: 04/12/18 21:26:00 FLIGHT COORDINATOR, Stop date: 04/12/18 21:26:00 FLIGHT COORDINATOR Keppra 2018-1 No 1,000 mg, Memori a 2-14 Route: l 03:26: IVPB, Bryson 00 ONCE, Dosing Weight 54.091, kg, Start date: 04/12/18 21:26:00 FLIGHT COORDINATOR, Stop date: 04/12/18 21:26:00 FLIGHT COORDINATOR Keppra 2018-1 No 1,000 mg, Memori a 2-14 Route: l 03:26: IVPB, Dawn 00 ONCE, Dosing Weight 54.091, kg, Start date: 04/12/18 21:26:00 FLIGHT COORDINATOR, Stop date: 04/12/18 21:26:00 FLIGHT COORDINATOR Keppra 2018-1 No 1,000 mg, Memori a 2-14 Route: l 03:26: IVPB, Dawn 00 ONCE, Dosing Weight 54.091, kg, Start date: 04/12/18 21:26:00 FLIGHT COORDINATOR, Stop date: 04/12/18 21:26:00 FLIGHT COORDINATOR Keppra 2017- No 1,000 mg, Memori a 2-14 Route: l 03:26: IVPB, Dawn 00 ONCE, Dosing Weight 54.091, kg, Start date: 04/12/18 21:26:00 FLIGHT COORDINATOR, Stop date: 04/12/18 21:26:00 FLIGHT COORDINATOR Keppra 2017- No 1,000 mg, Memori a 2-14 Route: l 03:26: IVPB, Bryson 00 ONCE, Dosing Weight 54.091, kg, Start date: 04/12/18 21:26:00 FLIGHT COORDINATOR, Stop date: 04/12/18 21:26:00 FLIGHT COORDINATOR acetaminoph 2017-05 No Notes: Do M emoria en-codeine 2-14 not exceed l #3 02:03: 4gm/day of Dawn 00 acetaminop hen. (Same as: Tylenol with Codeine # 3) acetaminoph 2017-05 No Notes: Do M emoria en-codeine 2-14 not exceed l #3 02:03: 4gm/day of Bryson 00 acetaminop hen. (Same as: Tylenol with Codeine # 3) acetaminoph 2017-05 No Notes: Do M emoria en-codeine 2-14 not exceed l #3 02:03: 4gm/day of Dawn 00 acetaminop hen. (Same as: Tylenol with Codeine # 3) acetaminoph 2017-05 No Notes: Do M emoria en-codeine 2-14 not exceed l #3 02:03: 4gm/day of Dawn 00 acetaminop hen. (Same as: Tylenol with [...] not exceed l #3 02:03: 4gm/day of Dawn 00 acetaminop hen. (Same as: Tylenol with Codeine # 3) Sodium 2018- No 1,000 mL, Mem[facility] a Chloride 2-14 Infuse l 0.9% 00:47: Over: 1 Dawn (Bolus) IV 00 hr, Route: IV, ONCE, Priority: STAT, Dosing Weight 54.091 kg, Start date: 04/12/18 18:47:00 FLIGHT COORDINATOR, Stop date: 04/12/18 18:47:00 FLIGHT COORDINATOR Sodium 2018-1 No 1,000 mL, Mem[facility] a Chloride 2-14 Infuse l 0.9% 00:47: Over: 1 Dawn (Bolus) IV 00 hr, Route: IV, ONCE, Priority: STAT, Dosing Weight 54.091 kg, Start date: 04/12/18 18:47:00 FLIGHT COORDINATOR, Stop date: 04/12/18 18:47:00 FLIGHT COORDINATOR Sodium 2018- No 1,000 mL, Mem[facility] a Chloride 2-14 Infuse l 0.9% 00:47: Over: 1 Dawn (Bolus) IV 00 hr, Route: IV, ONCE, Priority: STAT, Dosing Weight 54.091 kg, Start date: 04/12/18 18:47:00 FLIGHT COORDINATOR, Stop date: 04/12/18 18:47:00 FLIGHT COORDINATOR Sodium 2018-1 No 1,000 mL, Mem[facility] a Chloride 2-14 Infuse l 0.9% 00:47: Over: 1 Bryson (Bolus) IV 00 hr, Route: IV, ONCE, Priority: STAT, Dosing Weight 54.091 kg, Start date: 04/12/18 18:47:00 FLIGHT COORDINATOR, Stop date: 04/12/18 18:47:00 FLIGHT COORDINATOR Sodium 2018-1 No 1,000 mL, Mem[facility] a Chloride 2-14 Infuse l 0.9% 00:47: Over: 1 Bryson (Bolus) IV 00 hr, Route: IV, ONCE, Priority: STAT, Dosing Weight 54.091 kg, Start date: 04/12/18 18:47:00 FLIGHT COORDINATOR, Stop date: 04/12/18 18:47:00 FLIGHT COORDINATOR Sodium 2018-1 No 1,000 mL, Mem[facility] a Chloride 2-14 Infuse l 0.9% 00:47: Over: 1 Dawn (Bolus) IV 00 hr, Route: IV, ONCE, Priority: STAT, Dosing Weight 54.091 kg, Start date: 04/12/18 18:47:00 FLIGHT COORDINATOR, Stop date: 04/12/18 18:47:00 FLIGHT COORDINATOR Sodium 2018-1 No 1,000 mL, Mem[facility] a Chloride 2-14 Infuse l 0.9% 00:47: Over: 1 Dawn (Bolus) IV 00 hr, Route: IV, ONCE, Priority: STAT, Dosing Weight 54.091 kg, Start date: 04/12/18 18:47:00 FLIGHT COORDINATOR, Stop date: 04/12/18 18:47:00 FLIGHT COORDINATOR Sodium 2018-1 No 1,000 mL, Mem[facility] a Chloride 2-14 Infuse l 0.9% 00:47: Over: 1 Dawn (Bolus) IV 00 hr, Route: IV, ONCE, Priority: STAT, Dosing Weight 54.091 kg, Start date: 04/12/18 18:47:00 FLIGHT COORDINATOR, Stop date: 04/12/18 18:47:00 FLIGHT COORDINATOR Sodium 2018-1 No 1,000 mL, Mem[facility] a Chloride 2-14 Infuse l 0.9% 00:47: Over: 1 Bryson (Bolus) IV 00 hr, Route: IV, ONCE, Priority: STAT, Dosing Weight 54.091 kg, Start date: 04/12/18 18:47:00 FLIGHT COORDINATOR, Stop date: 04/12/18 18:47:00 FLIGHT COORDINATOR Sodium 2018-1 No 1,000 mL, Mem[facility] a Chloride 2-14 Infuse l 0.9% 00:47: Over: 1 Bryson (Bolus) IV 00 hr, Route: IV, ONCE, Priority: STAT, Dosing Weight 54.091 kg, Start date: 04/12/18 18:47:00 FLIGHT COORDINATOR, Stop date: 04/12/18 18:47:00 FLIGHT COORDINATOR Ibuprofen 2017-0 No 600 mg, Memor ia 1- Route: PO, l 05:32: Drug form: Dawn 00 TAB, ONCE, Dosing Weight 54.545, kg, Priority: STAT, Start date: 04/30/16 23:32:00 FLIGHT COORDINATOR, Stop date: 04/30/16 23:32:00 FLIGHT COORDINATOR Ibuprofen 2017-0 No 600 mg, Memor ia 1- Route: PO, l 05:32: Drug form: Dawn 00 TAB, ONCE, Dosing Weight 54.545, kg, Priority: STAT, Start date: 04/30/16 23:32:00 FLIGHT COORDINATOR, Stop date: 04/30/16 23:32:00 FLIGHT COORDINATOR Ibuprofen 2017-0 No 600 mg, Memor ia 05-01 Route: PO, l 05:32: Drug form: Dawn 00 TAB, ONCE, Dosing Weight 54.545, kg, Priority: STAT, Start date: 04/30/16 23:32:00 FLIGHT COORDINATOR, Stop date: 04/30/16 23:32:00 FLIGHT COORDINATOR Ibuprofen 2017-0 No 600 mg, Memor ia 1- Route: PO, l 05:32: Drug form: Bryson 00 TAB, ONCE, Dosing Weight 54.545, kg, Priority: STAT, Start date: 04/30/16 23:32:00 FLIGHT COORDINATOR, Stop date: 04/30/16 23:32:00 FLIGHT COORDINATOR Ibuprofen 2017-0 No 600 mg, Memor ia 1- Route: PO, l 05:32: Drug form: Dawn 00 TAB, ONCE, Dosing Weight 54.545, kg, Priority: STAT, Start date: 04/30/16 23:32:00 FLIGHT COORDINATOR, Stop date: 04/30/16 23:32:00 FLIGHT COORDINATOR Ibuprofen 2017-0 No 600 mg, Memor ia 1- Route: PO, l 05:32: Drug form: Dawn 00 TAB, ONCE, Dosing Weight 54.545, kg, Priority: STAT, Start date: 04/30/16 23:32:00 FLIGHT COORDINATOR, Stop date: 04/30/16 23:32:00 FLIGHT COORDINATOR Ibuprofen 2017-0 No 600 mg, Memor ia 1- Route: PO, l 05:32: Drug form: Bryson 00 TAB, ONCE, Dosing Weight 54.545, kg, Priority: STAT, Start date: 04/30/16 23:32:00 FLIGHT COORDINATOR, Stop date: 04/30/16 23:32:00 FLIGHT COORDINATOR Ibuprofen 2017-0 No 600 mg, Memor ia 1 Route: PO, l 05:32: Drug form: Bryson 00 TAB, ONCE, Dosing Weight 54.545, kg, Priority: STAT, Start date: 04/30/16 23:32:00 FLIGHT COORDINATOR, Stop date: 04/30/16 23:32:00 FLIGHT COORDINATOR Ibuprofen 2017-0 No 600 mg, Memor ia 05-01 Route: PO, l 05:32: Drug form: Bryson 00 TAB, ONCE, Dosing Weight 54.545, kg, Priority: STAT, Start date: 04/30/16 23:32:00 FLIGHT COORDINATOR, Stop date: 04/30/16 23:32:00 FLIGHT COORDINATOR Ibuprofen 2017-0 No 600 mg, Memor ia 05-01 Route: PO, l 05:32: Drug form: Dawn 00 TAB, ONCE, Dosing Weight 54.545, kg, Priority: STAT, Start date: 04/30/16 23:32:00 FLIGHT COORDINATOR, Stop date: 04/30/16 23:32:00 FLIGHT COORDINATOR Sodium 2017-0 No 1,000 mL, [facility] a Chloride 1-01 1,000 l 0.154 04:38: ml/hr, Dawn MEQ/ML 00 Infuse Injectable Over: 1 Solution hr, Route: IV, 1,000, Drug form: INJ, ONCE, Priority: STAT, Dosing Weight 54.545 kg, Start date: 04/30/16 22:38:00 FLIGHT COORDINATOR, Duration: 1 doses or times, Stop date: 04/30/16 22:38:00 FLIGHT COORDINATOR Sodium 2017-0 No 1,000 mL, Memori a Chloride 1-01 1,000 l 0.154 04:38: ml/hr, Dawn MEQ/ML 00 Infuse Injectable Over: 1 Solution hr, Route: IV, 1,000, Drug form: INJ, ONCE, Priority: STAT, Dosing Weight 54.545 kg, Start date: 04/30/16 22:38:00 FLIGHT COORDINATOR, Duration: 1 doses or times, Stop date: 04/30/16 22:38:00 FLIGHT COORDINATOR Sodium 2017-0 No 1,000 mL, Memori a Chloride 1-01 1,000 l 0.154 04:38: ml/hr, Dawn MEQ/ML 00 Infuse Injectable Over: 1 Solution hr, Route: IV, 1,000, Drug form: INJ, ONCE, Priority: STAT, Dosing Weight 54.545 kg, Start date: 04/30/16 22:38:00 FLIGHT COORDINATOR, Duration: 1 doses or times, Stop date: 04/30/16 22:38:00 FLIGHT COORDINATOR Sodium 2017-0 No 1,000 mL, Memori a Chloride 1-01 1,000 l 0.154 04:38: ml/hr, Dawn MEQ/ML 00 Infuse Injectable Over: 1 Solution hr, Route: IV, 1,000, Drug form: INJ, ONCE, Priority: STAT, Dosing Weight 54.545 kg, Start date: 04/30/16 22:38:00 FLIGHT COORDINATOR, Duration: 1 doses or times, Stop date: 04/30/16 22:38:00 FLIGHT COORDINATOR Sodium 2017-0 No 1,000 mL, Memori a Chloride 1-01 1,000 l 0.154 04:38: ml/hr, Bryson MEQ/ML 00 Infuse Injectable Over: 1 Solution hr, Route: IV, 1,000, Drug form: INJ, ONCE, Priority: STAT, Dosing Weight 54.545 kg, Start date: 04/30/16 22:38:00 FLIGHT COORDINATOR, Duration: 1 doses or times, Stop date: 04/30/16 22:38:00 FLIGHT COORDINATOR Sodium 2017-0 No 1,000 mL, Memori a Chloride 1-01 1,000 l 0.154 04:38: ml/hr, Bryson MEQ/ML 00 Infuse Injectable Over: 1 Solution hr, Route: IV, 1,000, Drug form: INJ, ONCE, Priority: STAT, Dosing Weight 54.545 kg, Start date: 04/30/16 22:38:00 FLIGHT COORDINATOR, Duration: 1 doses or times, Stop date: 04/30/16 22:38:00 FLIGHT COORDINATOR Sodium 2017-0 No 1,000 mL, [facility] Chloride 1-01 1,000 l 0.154 04:38: ml/hr, Bryson MEQ/ML 00 Infuse Injectable Over: 1 Solution hr, Route: IV, 1,000, Drug form: INJ, ONCE, Priority: STAT, Dosing Weight 54.545 kg, Start date: 04/30/16 22:38:00 FLIGHT COORDINATOR, Duration: 1 doses or times, Stop date: 04/30/16 22:38:00 FLIGHT COORDINATOR Sodium 2017-0 No 1,000 mL, [facility] Chloride 1-01 1,000 l 0.154 04:38: ml/hr, Dawn MEQ/ML 00 Infuse Injectable Over: 1 Solution hr, Route: IV, 1,000, Drug form: INJ, ONCE, Priority: STAT, Dosing Weight 54.545 kg, Start date: 04/30/16 22:38:00 FLIGHT COORDINATOR, Duration: 1 doses or times, Stop date: 04/30/16 22:38:00 FLIGHT COORDINATOR Sodium 2017-0 No 1,000 mL, [facility] Chloride 1-01 1,000 l 0.154 04:38: ml/hr, Bryson MEQ/ML 00 Infuse Injectable Over: 1 Solution hr, Route: IV, 1,000, Drug form: INJ, ONCE, Priority: STAT, Dosing Weight 54.545 kg, Start date: 04/30/16 22:38:00 FLIGHT COORDINATOR, Duration: 1 doses or times, Stop date: 04/30/16 22:38:00 FLIGHT COORDINATOR Sodium 2017-0 No 1,000 mL, [facility] Chloride 1-01 1,000 l 0.154 04:38: ml/hr, Bryson MEQ/ML 00 Infuse Injectable Over: 1 Solution hr, Route: IV, 1,000, Drug form: INJ, ONCE, Priority: STAT, Dosing Weight 54.545 kg, Start date: 04/30/16 22:38:00 FLIGHT COORDINATOR, Duration: 1 doses or times, Stop date: 04/30/16 22:38:00 FLIGHT COORDINATOR Sodium 2017-0 No 25 mL, [facility] Chloride 1-01 Route: IV, l 0.9% IV 02:29: Start Bryson 00 date: 04/30/16 20:29:00 FLIGHT COORDINATOR, Duration: 30 day, Stop date: 05/30/16 20:28:00 FLIGHT COORDINATOR, PRN Line Flush BD Normal 2017-0 No Notes: [facility] Saline 1- (Same as: l Flush 02:29: BD Dawn Posiflush) Sodium 2016-0 No 25 mL, [facility] Chloride 05-01 Route: IV, l 0.9% IV 02:29: Start Bryson 00 date: 04/30/16 20:29:00 FLIGHT COORDINATOR, Duration: 30 day, Stop date: 05/30/16 20:28:00 FLIGHT COORDINATOR, PRN Line Flush BD Normal 20170 No Notes: [facility] Saline 05-01 (Same as: l Flush 02:29: BD Dawn Posiflush) Sodium 2016-0 No 25 mL, [facility] Chloride 05-01 Route: IV, l 0.9% IV 02:29: Start Dawn date: 04/30/16 20:29:00 FLIGHT COORDINATOR, Duration: 30 day, Stop date: 05/30/16 20:28:00 FLIGHT COORDINATOR, PRN Line Flush BD Normal 0 No Notes: [facility] Saline 05-01 (Same as: l Flush 02:29: BD Dawn Posiflush) Sodium 2016-0 No 25 mL, [facility] Chloride 05-01 Route: IV, l 0.9% IV 02:29: Start Bryson date: 04/30/16 20:29:00 FLIGHT COORDINATOR, Duration: 30 day, Stop date: 05/30/16 20:28:00 FLIGHT COORDINATOR, PRN Line Flush BD Normal 0 No Notes: [facility] Saline 05-01 (Same as: l Flush 02:29: BD Dawn Posiflush) Sodium 2016-0 No 25 mL, [facility] Chloride 05-01 Route: IV, l 0.9% IV 02:29: Start Dawn date: 04/30/16 20:29:00 FLIGHT COORDINATOR, Duration: 30 day, Stop date: 05/30/16 20:28:00 FLIGHT COORDINATOR, PRN Line Flush BD Normal 0 No Notes: [facility] Saline 05-01 (Same as: l Flush 02:29: BD Dawn Posiflush) Sodium 2016-0 No 25 mL, [facility] Chloride 05-01 Route: IV, l 0.9% IV 02:29: Start Dawn 00 date: 04/30/16 20:29:00 FLIGHT COORDINATOR, Duration: 30 day, Stop date: 05/30/16 20:28:00 FLIGHT COORDINATOR, PRN Line Flush BD Normal 2016-0 No Notes: [facility] Saline 05-01 (Same as: l Flush 02:29: BD Dawn 00 Posiflush) Sodium 2016-0 No 25 mL, [facility] Chloride 05-01 Route: IV, l 0.9% IV 02:29: Start Dawn date: 04/30/16 20:29:00 FLIGHT COORDINATOR, Duration: 30 day, Stop date: 05/30/16 20:28:00 FLIGHT COORDINATOR, PRN Line Flush BD Normal 0 No Notes: [facility] Saline 05-01 (Same as: l Flush 02:29: BD Dawn Posiflush) Sodium 2016-0 No 25 mL, [facility] Chloride 05-01 Route: IV, l 0.9% IV 02:29: Start Bryson date: 04/30/16 20:29:00 FLIGHT COORDINATOR, Duration: 30 day, Stop date: 05/30/16 20:28:00 FLIGHT COORDINATOR, PRN Line Flush BD Normal No Notes: [facility] Saline 05-01 (Same as: l Flush 02:29: BD Bryson Posiflush) Sodium 2016-0 No 25 mL, [facility] Chloride 05-01 Route: IV, l 0.9% IV 02:29: Start Dawn date: 04/30/16 20:29:00 FLIGHT COORDINATOR, Duration: 30 day, Stop date: 05/30/16 20:28:00 FLIGHT COORDINATOR, PRN Line Flush BD Normal 0 No Notes: [facility] Saline 05-01 (Same as: l Flush 02:29: BD Bryson Posiflush) Sodium 2016-0 No 25 mL, [facility] Chloride 05-01 Route: IV, l 0.9% IV 02:29: Start Dawn date: 04/30/16 20:29:00 FLIGHT COORDINATOR, Duration: 30 day, Stop date: 05/30/16 20:28:00 FLIGHT COORDINATOR, PRN Line Flush BD Normal 0 No Notes: [facility] Saline 05-01 (Same as: l Flush 02:29: BD Bryson 00 Posiflush) Sodium 2017-0 No 1,000 mL, [facility] Chloride 05-01 1,000 l 0.154 02:19: ml/hr, Bryson MEQ/ML 00 Infuse Injectable Over: 1 Solution hr, Route: IV, 1,000, Drug form: INJ, ONCE, Priority: STAT, Dosing Weight 54.545 kg, Start date: 04/30/16 20:19:00 FLIGHT COORDINATOR, Duration: 1 doses or times, Stop date: 04/30/16 20:19:00 FLIGHT COORDINATOR Sodium 2017-0 No 1,000 mL, [facility] Chloride 1-01 1,000 l 0.154 02:19: ml/hr, Dawn MEQ/ML 00 Infuse Injectable Over: 1 Solution hr, Route: IV, 1,000, Drug form: INJ, ONCE, Priority: STAT, Dosing Weight 54.545 kg, Start date: 04/30/16 20:19:00 FLIGHT COORDINATOR, Duration: 1 doses or times, Stop date: 04/30/16 20:19:00 FLIGHT COORDINATOR Sodium 2017-0 No 1,000 mL, [facility] Chloride 1-01 1,000 l 0.154 02:19: ml/hr, Bryson MEQ/ML 00 Infuse Injectable Over: 1 Solution hr, Route: IV, 1,000, Drug form: INJ, ONCE, Priority: STAT, Dosing Weight 54.545 kg, Start date: 04/30/16 20:19:00 FLIGHT COORDINATOR, Duration: 1 doses or times, Stop date: 04/30/16 20:19:00 FLIGHT COORDINATOR Sodium 2017-0 No 1,000 mL, [facility] Chloride 1-01 1,000 l 0.154 02:19: ml/hr, Bryson MEQ/ML 00 Infuse Injectable Over: 1 Solution hr, Route: IV, 1,000, Drug form: INJ, ONCE, Priority: STAT, Dosing Weight 54.545 kg, Start date: 04/30/16 20:19:00 FLIGHT COORDINATOR, Duration: 1 doses or times, Stop date: 04/30/16 20:19:00 FLIGHT COORDINATOR Sodium 2017-0 No 1,000 mL, [facility] Chloride 1-01 1,000 l 0.154 02:19: ml/hr, Dawn MEQ/ML 00 Infuse Injectable Over: 1 Solution hr, Route: IV, 1,000, Drug form: INJ, ONCE, Priority: STAT, Dosing Weight 54.545 kg, Start date: 04/30/16 20:19:00 FLIGHT COORDINATOR, Duration: 1 doses or times, Stop date: 04/30/16 20:19:00 FLIGHT COORDINATOR Sodium 2017-0 No 1,000 mL, [facility] Chloride 1-01 1,000 l 0.154 02:19: ml/hr, Bryson MEQ/ML 00 Infuse Injectable Over: 1 Solution hr, Route: IV, 1,000, Drug form: INJ, ONCE, Priority: STAT, Dosing Weight 54.545 kg, Start date: 04/30/16 20:19:00 FLIGHT COORDINATOR, Duration: 1 doses or times, Stop date: 04/30/16 20:19:00 FLIGHT COORDINATOR Sodium 2017-0 No 1,000 mL, [facility] Chloride 1-01 1,000 l 0.154 02:19: ml/hr, Bryson MEQ/ML 00 Infuse Injectable Over: 1 Solution hr, Route: IV, 1,000, Drug form: INJ, ONCE, Priority: STAT, Dosing Weight 54.545 kg, Start date: 04/30/16 20:19:00 FLIGHT COORDINATOR, Duration: 1 doses or times, Stop date: 04/30/16 20:19:00 FLIGHT COORDINATOR Sodium 2017-0 No 1,000 mL, [facility] Chloride 1-01 1,000 l 0.154 02:19: ml/hr, Dawn MEQ/ML 00 Infuse Injectable Over: 1 Solution hr, Route: IV, 1,000, Drug form: INJ, ONCE, Priority: STAT, Dosing Weight 54.545 kg, Start date: 04/30/16 20:19:00 FLIGHT COORDINATOR, Duration: 1 doses or times, Stop date: 04/30/16 20:19:00 FLIGHT COORDINATOR Sodium 2017-0 No 1,000 mL, [facility] Chloride 1-01 1,000 l 0.154 02:19: ml/hr, Bryson MEQ/ML 00 Infuse Injectable Over: 1 Solution hr, Route: IV, 1,000, Drug form: INJ, ONCE, Priority: STAT, Dosing Weight 54.545 kg, Start date: 04/30/16 20:19:00 FLIGHT COORDINATOR, Duration: 1 doses or times, Stop date: 04/30/16 20:19:00 FLIGHT COORDINATOR Sodium 2017-0 No 1,000 mL, [facility] Chloride 1-01 1,000 l 0.154 02:19: ml/hr, Bryson MEQ/ML 00 Infuse Injectable Over: 1 Solution hr, Route: IV, 1,000, Drug form: INJ, ONCE, Priority: STAT, Dosing Weight 54.545 kg, Start date: 04/30/16 20:19:00 FLIGHT COORDINATOR, Duration: 1 doses or times, Stop date: 04/30/16 20:19:00 FLIGHT COORDINATOR tramadol 2015-05 Yes 50 mg = 1 [...] l de 50 MG 12:50: Q6H, PRN Karely nn Oral Tablet 00 Pain, X 10 [...] Route: IV, l 0.9% IV 11:21: Start Dawn date: 04/30/16 5:21:00 FLIGHT COORDINATOR, Duration: 30 day, Stop date: 05/30/16 5:20:00 FLIGHT COORDINATOR, PRN Line Flush BD Normal 2015-05 No Notes: [facility] Saline 2-31 (Same as: l Flush 11:21: BD Dawn Posiflush) Sodium 2015-05 No 25 mL, [facility] Chloride 2-31 Route: IV, l 0.9% IV 11:21: Start Dawn date: 04/30/16 5:21:00 FLIGHT COORDINATOR, Duration: 30 day, Stop date: 05/30/16 5:20:00 FLIGHT COORDINATOR, PRN Line Flush BD Normal 2015-05 No Notes: [facility] Saline 2-31 (Same as: l Flush 11:21: BD Bryson Posiflush) Sodium 2015-05 No 25 mL, [facility] Chloride 2-31 Route: IV, l 0.9% IV 11:21: Start Bryson 00 date: 04/30/16 5:21:00 FLIGHT COORDINATOR, Duration: 30 day, Stop date: 05/30/16 5:20:00 FLIGHT COORDINATOR, PRN Line Flush BD Normal 2015-05 No Notes: [facility] Saline 2-31 (Same as: l Flush 11:21: BD Dawn Posiflush) Sodium 2015-05 No 25 mL, [facility] Chloride 2-31 Route: IV, l 0.9% IV 11:21: Start Dawn 00 date: 04/30/16 5:21:00 FLIGHT COORDINATOR, Duration: 30 day, Stop date: 05/30/16 5:20:00 FLIGHT COORDINATOR, PRN Line Flush BD Normal 2015-05 No Notes: [facility] Saline 2-31 (Same as: l Flush 11:21: BD Dawn 00 Posiflush) Sodium 2015-05 No 25 mL, [facility] Chloride 2-31 Route: IV, l 0.9% IV 11:21: Start Bryson date: 04/30/16 5:21:00 FLIGHT COORDINATOR, Duration: 30 day, Stop date: 05/30/16 5:20:00 FLIGHT COORDINATOR, PRN Line Flush BD Normal 2015-05 No Notes: [facility] Saline 2-31 (Same as: l Flush 11:21: BD Bryson 00 Posiflush) Sodium 2015-05 No 25 mL, [facility] Chloride 2-31 Route: IV, l 0.9% IV 11:21: Start Dawn 00 date: 04/30/16 5:21:00 FLIGHT COORDINATOR, Duration: 30 day, Stop date: 05/30/16 5:20:00 FLIGHT COORDINATOR, PRN Line Flush BD Normal 2015-05 No Notes: [facility] Saline 2-31 (Same as: l Flush 11:21: BD Bryson 00 Posiflush) Sodium 2015-05 No 25 mL, [facility] Chloride 2-31 Route: IV, l 0.9% IV 11:21: Start Bryson date: 04/30/16 5:21:00 FLIGHT COORDINATOR, Duration: 30 day, Stop date: 05/30/16 5:20:00 FLIGHT COORDINATOR, PRN Line Flush BD Normal 2015-05 No Notes: [facility] Saline 2-31 (Same as: l Flush 11:21: BD Bryson Posiflush) Sodium 2015-05 No 25 mL, [facility] Chloride 2-31 Route: IV, l 0.9% IV 11:21: Start Bryson date: 04/30/16 5:21:00 FLIGHT COORDINATOR, Duration: 30 day, Stop date: 05/30/16 5:20:00 FLIGHT COORDINATOR, PRN Line Flush BD Normal 2015-05 No Notes: [facility] Saline 2-31 (Same as: l Flush 11:21: BD Bryson Posiflush) Sodium 2015-05 No 25 mL, [facility] Chloride 2-31 Route: IV, l 0.9% IV 11:21: Start Dawn 00 date: 04/30/16 5:21:00 FLIGHT COORDINATOR, Duration: 30 day, Stop date: 05/30/16 5:20:00 FLIGHT COORDINATOR, PRN Line Flush BD Normal 2015-05 No Notes: [facility] Saline 2-31 (Same as: l Flush 11:21: BD Dawn 00 Posiflush) Sodium 2015-05 No 25 mL, [facility] Chloride 2-31 Route: IV, l 0.9% IV 11:21: Start Dawn 00 date: 04/30/16 5:21:00 FLIGHT COORDINATOR, Duration: 30 day, Stop date: 05/30/16 5:20:00 FLIGHT COORDINATOR, PRN Line Flush BD Normal 2015- No Notes: [facility] Saline 2-31 (Same as: l Flush 11:21: BD Dawn 00 Posiflush) Motrin 2016- No 800 mg, 1 [facility] 2-31 tab, l 11:19: Route: PO, Dawn 00 Drug form: TAB, ONCE, Dosing Weight 54.545, kg, Priority: STAT, Start date: 04/30/16 5:19:00 FLIGHT COORDINATOR, Stop date: 04/30/16 5:19:00 FLIGHT COORDINATOR Motrin 2016- No 800 mg, 1 [facility] 2-31 tab, l 11:19: Route: PO, Dawn 00 Drug form: TAB, ONCE, Dosing Weight 54.545, kg, Priority: STAT, Start date: 04/30/16 5:19:00 FLIGHT COORDINATOR, Stop date: 04/30/16 5:19:00 FLIGHT COORDINATOR Motrin 2016- No 800 mg, 1 [facility] 2-31 tab, l 11:19: Route: PO, Bryson 00 Drug form: TAB, ONCE, Dosing Weight 54.545, kg, Priority: STAT, Start date: 04/30/16 5:19:00 FLIGHT COORDINATOR, Stop date: 04/30/16 5:19:00 FLIGHT COORDINATOR Motrin 2016-1 No 800 mg, 1 [facility] 2-31 tab, l 11:19: Route: PO, Dawn 00 Drug form: TAB, ONCE, Dosing Weight 54.545, kg, Priority: STAT, Start date: 04/30/16 5:19:00 FLIGHT COORDINATOR, Stop date: 04/30/16 5:19:00 FLIGHT COORDINATOR Motrin 2016-1 No 800 mg, 1 [facility] 2-31 tab, l 11:19: Route: PO, Bryson 00 Drug form: TAB, ONCE, Dosing Weight 54.545, kg, Priority: STAT, Start date: 04/30/16 5:19:00 FLIGHT COORDINATOR, Stop date: 04/30/16 5:19:00 FLIGHT COORDINATOR Motrin 2016- No 800 mg, 1 [facility] 2-31 tab, l 11:19: Route: PO, Bryson 00 Drug form: TAB, ONCE, Dosing Weight 54.545, kg, Priority: STAT, Start date: 04/30/16 5:19:00 FLIGHT COORDINATOR, Stop date: 04/30/16 5:19:00 FLIGHT COORDINATOR Motrin 2015- No 800 mg, 1 [facility] 2-31 tab, l 11:19: Route: PO, Dawn 00 Drug form: TAB, ONCE, Dosing Weight 54.545, kg, Priority: STAT, Start date: 04/30/16 5:19:00 FLIGHT COORDINATOR, Stop date: 04/30/16 5:19:00 FLIGHT COORDINATOR Motrin 2015-1 No 800 mg, 1 [facility] 2-31 tab, l 11:19: Route: PO, Dawn 00 Drug form: TAB, ONCE, Dosing Weight 54.545, kg, Priority: STAT, Start date: 04/30/16 5:19:00 FLIGHT COORDINATOR, Stop date: 04/30/16 5:19:00 FLIGHT COORDINATOR Motrin 2016-1 No 800 mg, 1 [facility] 2-31 tab, l 11:19: Route: PO, Drug form: TAB, ONCE, Dosing Weight 54.545, kg, Priority: STAT, Start date: 04/30/16 5:19:00 FLIGHT COORDINATOR, Stop date: 04/30/16 5:19:00 FLIGHT COORDINATOR Motrin 2015- No 800 mg, 1 [facility] 2-31 tab, l 11:19: Route: PO, Drug form: TAB, ONCE, Dosing Weight 54.545, kg, Priority: STAT, Start date: 04/30/16 5:19:00 FLIGHT COORDINATOR, Stop date: 04/30/16 5:19:00 FLIGHT COORDINATOR Sodium 2015- No 25 mL, [facility] Chloride 2 Route: IV, l 0.9% IV 11:07: Start date: 04/30/16 5:07:00 FLIGHT COORDINATOR, Duration: 30 day, Stop date: 05/30/16 5:06:00 FLIGHT COORDINATOR, PRN Line Flush BD Normal 2015-05 No Notes: [facility] Saline 2-31 (Same as: l Flush 11:07: BD Posiflush) Sodium 2015-05 No 25 mL, [facility] Chloride 2-31 Route: IV, l 0.9% IV 11:07: Start date: 04/30/16 5:07:00 FLIGHT COORDINATOR, Duration: 30 day, Stop date: 05/30/16 5:06:00 FLIGHT COORDINATOR, PRN Line Flush BD Normal 2015-05 No Notes: [facility] Saline 2-31 (Same as: l Flush 11:07: BD Bryson 00 Posiflush) Sodium 2015-05 No 25 mL, [facility] Chloride 2-31 Route: IV, l 0.9% IV 11:07: Start Dawn 00 date: 04/30/16 5:07:00 FLIGHT COORDINATOR, Duration: 30 day, Stop date: 05/30/16 5:06:00 FLIGHT COORDINATOR, PRN Line Flush BD Normal 2015-05 No Notes: [facility] Saline 2-31 (Same as: l Flush 11:07: BD Dawn Posiflush) Sodium 2015-05 No 25 mL, [facility] Chloride 2-31 Route: IV, l 0.9% IV 11:07: Start date: 04/30/16 5:07:00 FLIGHT COORDINATOR, Duration: 30 day, Stop date: 05/30/16 5:06:00 FLIGHT COORDINATOR, PRN Line Flush BD Normal 2015-05 No Notes: [facility] Saline 2-31 (Same as: l Flush 11:07: BD Bryson Posiflush) Sodium 2015-05 No 25 mL, [facility] Chloride 2-31 Route: IV, l 0.9% IV 11:07: Start date: 04/30/16 5:07:00 FLIGHT COORDINATOR, Duration: 30 day, Stop date: 05/30/16 5:06:00 FLIGHT COORDINATOR, PRN Line Flush BD Normal 2015-05 No Notes: [facility] Saline 2-31 (Same as: l Flush 11:07: BD Dawn Posiflush) Sodium 2015-05 No 25 mL, [facility] Chloride 2-31 Route: IV, l 0.9% IV 11:07: Start Dawn 00 date: 04/30/16 5:07:00 FLIGHT COORDINATOR, Duration: 30 day, Stop date: 05/30/16 5:06:00 FLIGHT COORDINATOR, PRN Line Flush BD Normal 2015-05 No Notes: [facility] Saline 2-31 (Same as: l Flush 11:07: BD Bryson 00 Posiflush) Sodium 2015-05 No 25 mL, [facility] Chloride 2-31 Route: IV, l 0.9% IV 11:07: Start Bryson 00 date: 04/30/16 5:07:00 FLIGHT COORDINATOR, Duration: 30 day, Stop date: 05/30/16 5:06:00 FLIGHT COORDINATOR, PRN Line Flush BD Normal 2015-05 No Notes: [facility] Saline 2-31 (Same as: l Flush 11:07: BD Bryson Posiflush) Sodium 2015-05 No 25 mL, [facility] Chloride 2-31 Route: IV, l 0.9% IV 11:07: Start Bryson 00 date: 04/30/16 5:07:00 FLIGHT COORDINATOR, Duration: 30 day, Stop date: 05/30/16 5:06:00 FLIGHT COORDINATOR, PRN Line Flush BD Normal 2015-05 No Notes: [facility] Saline 2-31 (Same as: l Flush 11:07: BD Dawn Posiflush) Sodium 2015-05 No 25 mL, [facility] Chloride 2-31 Route: IV, l 0.9% IV 11:07: Start Dawn 00 date: 04/30/16 5:07:00 FLIGHT COORDINATOR, Duration: 30 day, Stop date: 05/30/16 5:06:00 FLIGHT COORDINATOR, PRN Line Flush BD Normal 2015-05 No Notes: [facility] Saline 2-31 (Same as: l Flush 11:07: BD Dawn Posiflush) Sodium 2015-05 No 25 mL, [facility] Chloride 2-31 Route: IV, l 0.9% IV 11:07: Start Bryson 00 date: 04/30/16 5:07:00 FLIGHT COORDINATOR, Duration: 30 day, Stop date: 05/30/16 5:06:00 FLIGHT COORDINATOR, PRN Line Flush BD Normal 2015-05 No Notes: [facility] Saline 2-31 (Same as: l Flush 11:07: BD Dawn Posiflush) Sodium 2015-05 No 1,000 mL, [facility] Chloride 2-31 1,000 l 0.154 11:01: ml/hr, Bryson MEQ/ML 00 Infuse Injectable Over: 1 Solution hr, Route: IV, 1,000, Drug form: INJ, ONCE, Priority: STAT, Dosing Weight 54.545 kg, Start date: 04/30/16 5:01:00 FLIGHT COORDINATOR, Duration: 1 doses or times, Stop date: 04/30/16 5:01:00 FLIGHT COORDINATOR Ketorolac 2015-05 No 4 days [facility] 2-31 l 11:01: MEDICATION Dawn 00 WASTE Product Size: 30 mg Product Wasted: ___ mg Compazine 2015-05 No Notes: [facility] 2-31 (Same as: l 11:: Compazine) Bryson Benadryl 2015-05 No Notes: [facility] 2-31 (Same as: l 11:: Benadryl) Dawn 00 Sodium 2015-05 No 1,000 mL, [facility] Chloride 2-31 1,000 l 0.154 11:01: ml/hr, Dawn MEQ/ML 00 Infuse Injectable Over: 1 Solution hr, Route: IV, 1,000, Drug form: INJ, ONCE, Priority: STAT, Dosing Weight 54.545 kg, Start date: 04/30/16 5:01:00 FLIGHT COORDINATOR, Duration: 1 doses or times, Stop date: 04/30/16 5:01:00 FLIGHT COORDINATOR Ketorolac 2015-05 No 4 days [facility] 2-31 l 11:01: MEDICATION Dawn 00 WASTE Product Size: 30 mg Product Wasted: ___ mg Compazine 2015-05 No Notes: [facility] 2-31 (Same as: l : Compazine) Bryson Benadryl 2015-05 No Notes: [facility] 2-31 (Same as: l :: Benadryl) Bryson 00 Sodium 2015-05 No 1,000 mL, [facility] Chloride 2-31 1,000 l 0.154 11:01: ml/hr, Bryson MEQ/ML 00 Infuse Injectable Over: 1 Solution hr, Route: IV, 1,000, Drug form: INJ, ONCE, Priority: STAT, Dosing Weight 54.545 kg, Start date: 04/30/16 5:01:00 FLIGHT COORDINATOR, Duration: 1 doses or times, Stop date: 04/30/16 5:01:00 FLIGHT COORDINATOR Ketorolac 2015-05 No 4 days [facility] 2-31 l 11:01: MEDICATION Dawn 00 WASTE Product Size: 30 mg Product Wasted: ___ mg Compazine 2015-05 No Notes: [facility] 2-31 (Same as: l 11:: Compazine) Bryson Benadryl 2015-05 No Notes: [facility] 2-31 (Same as: l 11:: Benadryl) Dawn 00 Sodium 2015-05 No 1,000 mL, [facility] Chloride 2-31 1,000 l 0.154 11:01: ml/hr, Dawn MEQ/ML 00 Infuse Injectable Over: 1 Solution hr, Route: IV, 1,000, Drug form: INJ, ONCE, Priority: STAT, Dosing Weight 54.545 kg, Start date: 04/30/16 5:01:00 FLIGHT COORDINATOR, Duration: 1 doses or times, Stop date: 04/30/16 5:01:00 FLIGHT COORDINATOR Ketorolac 2015-05 No 4 days [facility] 2-31 l 11:01: MEDICATION Bryson 00 WASTE Product Size: 30 mg Product Wasted: ___ mg Compazine 2015-05 No Notes: [facility] 2-31 (Same as: l : Compazine) Bryson 00 Benadryl 2015-05 No Notes: [facility] 2-31 (Same as: l : Benadryl) Bryson Sodium 2015-05 No 1,000 mL, [facility] Chloride 2-31 1,000 l 0.154 11:01: ml/hr, Dawn MEQ/ML 00 Infuse Injectable Over: 1 Solution hr, Route: IV, 1,000, Drug form: INJ, ONCE, Priority: STAT, Dosing Weight 54.545 kg, Start date: 04/30/16 5:01:00 FLIGHT COORDINATOR, Duration: 1 doses or times, Stop date: 04/30/16 5:01:00 FLIGHT COORDINATOR Ketorolac 2015-05 No 4 days [facility] 2-31 l 11:01: MEDICATION Dawn 00 WASTE Product Size: 30 mg Product Wasted: ___ mg Compazine 2015-05 No Notes: [facility] 2-31 (Same as: l 11:: Compazine) Bryson Benadryl 2015-05 No Notes: [facility] 2-31 (Same as: l 11:: Benadryl) Dawn 00 Sodium 2015-05 No 1,000 mL, [facility] Chloride 2-31 1,000 l 0.154 11:01: ml/hr, Dawn MEQ/ML 00 Infuse Injectable Over: 1 Solution hr, Route: IV, 1,000, Drug form: INJ, ONCE, Priority: STAT, Dosing Weight 54.545 kg, Start date: 04/30/16 5:01:00 FLIGHT COORDINATOR, Duration: 1 doses or times, Stop date: 04/30/16 5:01:00 FLIGHT COORDINATOR Ketorolac 2016- No 4 days [facility] 2-31 l 11:01: MEDICATION Bryson 00 WASTE Product Size: 30 mg Product Wasted: ___ mg Compazine 2015-05 No Notes: [facility] 2-31 (Same as: l 11:: Compazine) Dawn 00 Benadryl 2015-05 No Notes: [facility] 2-31 (Same as: l 11:: Benadryl) Dawn 00 Sodium 2015-05 No 1,000 mL, [facility] Chloride 2-31 1,000 l 0.154 11:01: ml/hr, Dawn MEQ/ML 00 Infuse Injectable Over: 1 Solution hr, Route: IV, 1,000, Drug form: INJ, ONCE, Priority: STAT, Dosing Weight 54.545 kg, Start date: 04/30/16 5:01:00 FLIGHT COORDINATOR, Duration: 1 doses or times, Stop date: 04/30/16 5:01:00 FLIGHT COORDINATOR Ketorolac 2015- No 4 days [facility] 2-31 l 11:01: MEDICATION Bryson 00 WASTE Product Size: 30 mg Product Wasted: ___ mg Compazine 2015-05 No Notes: [facility] 2-31 (Same as: l 11:: Compazine) Dawn 00 Benadryl 2015-05 No Notes: [facility] 2-31 (Same as: l 11:: Benadryl) Bryson 00 Sodium 2015-05 No 1,000 mL, [facility] Chloride 2-31 1,000 l 0.154 11:01: ml/hr, Dawn MEQ/ML 00 Infuse Injectable Over: 1 Solution hr, Route: IV, 1,000, Drug form: INJ, ONCE, Priority: STAT, Dosing Weight 54.545 kg, Start date: 04/30/16 5:01:00 FLIGHT COORDINATOR, Duration: 1 doses or times, Stop date: 04/30/16 5:01:00 FLIGHT COORDINATOR Ketorolac 2015- No 4 days [facility] 2-31 l 11:01: MEDICATION Dawn 00 WASTE Product Size: 30 mg Product [...] Weight 54.545 kg, Start date: 04/30/16 5:01:00 FLIGHT COORDINATOR, Duration: 1 doses or times, Stop date: 04/30/16 5:01:00 FLIGHT COORDINATOR Ketorolac 2015-05 No 4 days [facility] 2-31 l 11:01: MEDICATION Bryson 00 WASTE Product Size: 30 mg Product Wasted: ___ mg Compazine 2015-05 No Notes: [facility] 2-31 (Same as: l :: Compazine) Bryson 00 Benadryl 2015-05 No Notes: [facility] 2-31 (Same as: l 11:: Benadryl) Dawn Sodium 2015-05 No 1,000 mL, Memori a Chloride 2-31 1,000 l 0.154 11:01: ml/hr, Dawn MEQ/ML 00 Infuse Injectable Over: 1 Solution hr, Route: IV, 1,000, Drug form: INJ, ONCE, Priority: STAT, Dosing Weight 54.545 kg, Start date: 04/30/16 5:01:00 FLIGHT COORDINATOR, Duration: 1 doses or times, Stop date: 04/30/16 5:01:00 FLIGHT COORDINATOR Ketorolac 2015-05 No 4 days Memor ia 2-31 l 11:01: MEDICATION Bryson 00 WASTE Product Size: 30 mg Product Wasted: ___ mg Compazine 2015-05 No Notes: Memori a 2-31 (Same as: l 11:01: Compazine) Dawn 00 Benadryl 2015-05 No Notes: Memoria 2-31 (Same as: l 11:01: Benadryl) Bryson 00 Dexamethaso 2015-05 No Notes: Magdaleno pilo ne 2-08 Concentrat l 06:19: ion: Dawn 00 4mg/ml Dexamethaso 2015-05 No Notes: Magdaleno pilo ne 2-08 Concentrat l 06:19: ion: Bryson 00 4mg/ml Dexamethaso 2015-05 No Notes: Magdaleno pilo ne 2-08 Concentrat l 06:19: ion: Bryson 00 4mg/ml Dexamethaso 2015-05 No Notes: Magdaleno pilo ne 2-08 Concentrat l 06:19: ion: Dawn 00 4mg/ml Dexamethaso 2015-05 No Notes: Magdaleno [...] Total Volume: 1,000, Start date: 04/06/16 19:50:00 FLIGHT COORDINATOR, Duration: 1 doses or times, Stop date: 04/06/16 20:49:00 FLIGHT COORDINATOR, Bolus Dose Motrin 2015-05 No Notes: Memoria 2-08 (Same as: l 01:50: Motrin) Bryson 00 "Do Not Crush" Take with food. sodium 2015- No 1,000 mL, Memori a chloride 2-08 Rate: l 0.9% 1000 01:50: 1,000 Dawn ml INJ 00 ml/hr, 1,000 mL Infuse over: 1 hr, Route: IV, Dosing Weight 50 kg, Total Volume: 1,000, Start date: 04/06/16 19:50:00 FLIGHT COORDINATOR, Duration: 1 doses or times, Stop date: 04/06/16 20:49:00 FLIGHT COORDINATOR, Bolus Dose Motrin 2015-05 No Notes: Memoria 2-08 (Same as: l 01:50: Motrin) Bryson 00 "Do Not Crush" Take with food. sodium 2015-05 No 1,000 mL, Memori a chloride 2-08 Rate: l 0.9% 1000 01:50: 1,000 Dawn ml INJ 00 ml/hr, 1,000 mL Infuse over: 1 hr, Route: IV, Dosing Weight 50 kg, Total Volume: 1,000, Start date: 04/06/16 19:50:00 FLIGHT COORDINATOR, Duration: 1 doses or times, Stop date: 04/06/16 20:49:00 FLIGHT COORDINATOR, Bolus Dose Motrin 2015-05 No Notes: Memoria 2-08 (Same as: l 01:50: Motrin) Dawn 00 "Do Not Crush" Take with food. sodium 2015-05 No 1,000 mL, Memori a chloride 2-08 Rate: l 0.9% 1000 01:50: 1,000 Bryson ml INJ 00 ml/hr, 1,000 mL Infuse over: 1 hr, Route: IV, Dosing Weight 50 kg, Total Volume: 1,000, Start date: 04/06/16 19:50:00 FLIGHT COORDINATOR, Duration: 1 doses or times, Stop date: 04/06/16 20:49:00 FLIGHT COORDINATOR, Bolus Dose Motrin 2015-05 No Notes: Memoria 2-08 (Same as: l 01:50: Motrin) Dawn 00 "Do Not Crush" Take with food. sodium 2015-05 No 1,000 mL, Memori a chloride 2-08 Rate: l 0.9% 1000 01:50: 1,000 Dawn ml INJ 00 ml/hr, 1,000 mL Infuse over: 1 hr, Route: IV, Dosing Weight 50 kg, Total Volume: 1,000, Start date: 04/06/16 19:50:00 FLIGHT COORDINATOR, Duration: 1 doses or times, Stop date: 04/06/16 20:49:00 FLIGHT COORDINATOR, Bolus Dose Motrin 2015-05 No Notes: Memoria 2-08 (Same as: l 01:50: Motrin) Dawn 00 "Do Not Crush" Take with food. sodium 2015-05 No 1,000 mL, Memori a chloride 2-08 Rate: l 0.9% 1000 01:50: 1,000 Dawn ml INJ 00 ml/hr, 1,000 mL Infuse over: 1 hr, Route: IV, Dosing Weight 50 kg, Total Volume: 1,000, Start date: 04/06/16 19:50:00 FLIGHT COORDINATOR, Duration: 1 doses or times, Stop date: 04/06/16 20:49:00 FLIGHT COORDINATOR, Bolus Dose Motrin 2016-1 No Notes: Memoria 2-08 (Same as: l 01:50: Motrin) Bryson 00 "Do Not Crush" Take with food. sodium 2015- No 1,000 mL, Memori a chloride 2-08 Rate: l 0.9% 1000 01:50: 1,000 Dawn ml INJ 00 ml/hr, 1,000 mL Infuse over: 1 hr, Route: IV, Dosing Weight 50 kg, Total Volume: 1,000, Start date: 04/06/16 19:50:00 FLIGHT COORDINATOR, Duration: 1 doses or times, Stop date: 04/06/16 20:49:00 FLIGHT COORDINATOR, Bolus Dose Motrin 2016-1 No Notes: Memoria 2-08 (Same as: l 01:50: Motrin) Dawn 00 "Do Not Crush" Take with food. sodium 2015- No 1,000 mL, Memori a chloride 2-08 Rate: l 0.9% 1000 01:50: 1,000 Dawn ml INJ 00 ml/hr, 1,000 mL Infuse over: 1 hr, Route: IV, Dosing Weight 50 kg, Total Volume: 1,000, Start date: 04/06/16 19:50:00 FLIGHT COORDINATOR, Duration: 1 doses or times, Stop date: 04/06/16 20:49:00 FLIGHT COORDINATOR, Bolus Dose Motrin 2015-05 No Notes: Memoria 2-08 (Same as: l 01:50: Motrin) Bryson 00 "Do Not Crush" Take with food. sodium 2015-05 No 1,000 mL, Memori a chloride 2-08 Rate: l 0.9% 1000 01:50: 1,000 Bryson ml INJ 00 ml/hr, 1,000 mL Infuse over: 1 hr, Route: IV, Dosing Weight 50 kg, Total Volume: 1,000, Start date: 04/06/16 19:50:00 FLIGHT COORDINATOR, Duration: 1 doses or times, Stop date: 04/06/16 20:49:00 FLIGHT COORDINATOR, Bolus Dose Motrin 2015-05 No Notes: Memoria 2-08 (Same as: l 01:50: Motrin) Dawn 00 "Do Not Crush" Take with food. sodium 2015-05 No 1,000 mL, Memori a chloride 2-08 Rate: l 0.9% 1000 01:50: 1,000 Bryson ml INJ 00 ml/hr, 1,000 mL Infuse over: 1 hr, Route: IV, Dosing Weight 50 kg, Total Volume: 1,000, Start date: 04/06/16 19:50:00 FLIGHT COORDINATOR, Duration: 1 doses or times, Stop date: 04/06/16 20:49:00 FLIGHT COORDINATOR, Bolus Dose Acetaminoph No Notes: Do M emoria en 15 not exceed l 06:17: 4 gm/day. Bryson 00 (Same as: Tylenol) Acetaminoph No Notes: Do M emoria en 15 not exceed l 06:17: 4 gm/day. Dawn 00 (Same as: Tylenol) Acetaminoph No Notes: Do M emoria en 9-15 not exceed l 06:17: 4 gm/day. Dawn 00 (Same as: Tylenol) Acetaminoph No Notes: Do M emoria en -15 not exceed l 06:17: 4 gm/day. Dawn 00 (Same as: Tylenol) Acetaminoph No Notes: [...] 15 not exceed l 06:17: 4 gm/day. Dawn 00 (Same as: Tylenol) Acetaminoph No Notes: Do M emoria en 01-13 not exceed l 06:17: 4 gm/day. Dawn 00 (Same as: Tylenol) Acetaminoph No Notes: Do M emoria en 15 not exceed l 06:17: 4 gm/day. (Same as: Tylenol) Epinephrine No 1 ml, [...] No 1 ml, Memor ia 0.01 MG/ML 9-15 Route: l / Lidocaine 03:09: SUB-Q, Herm [...] CDT, Stop date: 01/13/16 22:09:00 CDT Epinephrine 2016- No 1 ml, Memor ia 0.01 MG/ML 01-13 Route: l / Lidocaine 03:09: SUB-Q, Herm boaz Hydrochlori 00 Drug Form: de 10 MG/ML SOLN, Injectable Dosing Solution Weight 50, kg, ONCE, STAT, Start date: 01/13/16 22:09:00 CDT, Stop date: 01/13/16 22:09:00 CDT benztropine 2013- Yes Psychosis 1mg Take 2 Gonzales (COGENTIN) 5-01 tablets by [facility] 0.5 mg 00:00: mouth 2 tablet [...] 1 Gonzales e (INVEGA) 5-01 tablet by [facility] 9 mg 00:00: mouth extended 00 every release morning. tablet traZODone Yes Psychosis 100mg Take 1 Gonzales (DESYREL) 5-01 tablet by [facility] h 100 mg 00:00: mouth tablet 00 nightly at bedtime as needed for Sleep. benztropine Yes Psychosis 1mg Take 2 Gonzales (COGENTIN) 5-01 tablets by [facility] 0.5 mg 00:00: mouth 2 [...] 1 Gonzales e (INVEGA) 5-01 tablet by [facility] 9 mg 00:00: mouth extended 00 every release morning. tablet traZODone Yes Psychosis 100mg Take 1 Gonzales (DESYREL) 5-[facility] 100 mg 00:00: mouth tablet 00 nightly at bedtime as needed for Sleep. benztropine Yes Psychosis 1mg Take 2 Gonzales (COGENTIN) 5- tablets by [facility] lt 0.5 mg 00:00: mouth 2 [...] 1 Gonzales e (INVEGA) 08-29 tablet by [facility] 9 mg 00:00: mouth extended 00 every release morning. tablet traZODone Yes Psychosis 100mg Take 1 Gonzales (DESYREL) - tablet by [facility] 100 mg 00:00: mouth tablet 00 nightly at bedtime as needed for Sleep. benztropine 2021- No Psychosis 1mg Take 2 Gonzales (COGENTIN) 08-29 tablets by [facility] 0.5 mg 00:00: 00:00 mouth 2 tablet [...] 1 Gonzales e (INVEGA) 08-29 tablet by [facility] 9 mg 00:00: 00:00 mouth extended 00 :00 every release morning. tablet traZODone 2021- No Psychosis 100mg Take 1 Gonzales (DESYREL) 08-29 tablet by [facility] 100 mg 00:00: 00:00 mouth tablet 00 [...] 1 Gonzales e (INVEGA) 08-29 tablet by [facility] lt 9 mg 00:00: 00:00 mouth extended 00 :00 every release morning. tablet traZODone 2021- No Psychosis 100mg Take 1 Gonzales (DESYREL) 08-29 tablet by [facility] 100 mg 00:00: 00:00 mouth tablet [...] 1 Gonzales e (INVEGA) 08-29 tablet by [facility] lt 9 mg 00:00: 00:00 mouth extended 00 :00 every release morning. tablet traZODone 2013-2021- No Psychosis 100mg Take 1 Gonzales (DESYREL) 08-29 tablet by [facility] th 100 mg 00:00: 00:00 mouth tablet [...] cap, Substituti on Allowed Keflex 750 Yes Dejno 750 mg, 1 Me moria mg oral 9-02 Chibueze cap, PO, l capsule 01:30: Osuagwu Q12H, 10 Her hung 08 cap, Substituti on Allowed Keflex 750 Yes Dejon 750 mg, 1 Me moria mg oral 12-31 Chibueze cap, PO, l capsule 01:30: Osuagwu Q12H, 10 Her hung 08 cap, Substituti on Allowed Keflex 750 2012-0 Yes Dejon 750 mg, 1 Me moria [...] tab, Substituti on Allowed, TAB diazepam 5 0 Yes Leona H 5 mg, 1 Me moria mg oral 12-30 Khraish tab, PO, l tablet 17:36: Daily, 10 Abdiaziz n 10 tab, Substituti on Allowed, TAB diazepam 5 2012-0 Yes Leona H 5 mg, 1 Me moria mg oral 12-30 Khraish tab, PO, l tablet 17:36: Daily, 10 Abdiaziz n 10 tab, Substituti on Allowed, TAB diazepam 5 2012-0 Yes Leona H 5 mg, 1 Me [...] needed for itching, Substituti on Allowed, TAB Gomer Yes Leona H 1 tab, PO, Magdaleno pilo 10/325 oral 12-30 Khraish Q6H, 20 l tablet 17:35: Bryson grigsby Substituti on Allowed, Maintenanc e, TAB Gomer Yes Leona H 1 tab, PO, Magdaleno pilo 10/325 oral 12-30 Khraish Q6H, 20 l tablet 17:35: Bryson grigsby Substituti on Allowed, Maintenanc e, TAB Gomer Yes Leona H 1 tab, PO, Magdaleno pilo 10/325 oral 12-30 Khraish Q6H, 20 l tablet 17:35: Bryson grigsby Substituti on Allowed, Maintenanc e, TAB Gomer Yes Leona H 1 tab, PO, Magdaleno pilo 10/325 oral 12-30 Khraish Q6H, 20 l tablet 17:35: tab, Bryson Bustos Substituti on Allowed, Maintenanc e, TAB Gomer Yes Leona H 1 tab, PO, Magdaleno pilo 10/325 oral 12-30 Khraish Q6H, 20 l tablet 17:35: tabBryson Substituti on Allowed, Maintenanc e, TAB Gomer Yes Leona H 1 tab, PO, Magdaleno pilo 10/325 oral 12-30 Khraish Q6H, 20 l tablet 17:35: tab, Bryson Bustos Substituti on Allowed, Maintenanc e, TAB Gomer Yes Leona H 1 tab, PO, Magdaleno pilo 10/325 oral 12-30 Khraish Q6H, 20 l tablet 17:35: tabBryson Substituti on Allowed, Maintenanc e, TAB Gomer Yes Elona H 1 tab, PO, Magdaleno pilo 10/325 oral 12-30 Khraish Q6H, 20 l tablet 17:35: tabBryson Substituti on Allowed, Maintenanc e, TAB Gomer Yes Leona H 1 tab, PO, Magdaleno pilo 10/325 oral 12-30 Khraish Q6H, 20 l tablet 17:35: tabBryson Substituti on Allowed, Maintenanc e, TAB Gomer Yes Leona H 1 tab, PO, Magdaleno pilo 10/325 oral 12-30 Khraish Q6H, 20 l tablet 17:35: tabBryson Substituti on Allowed, Maintenanc e, TAB tramadol 50 No Leona H 50 mg, 1 Memoria mg oral 12-30 Khraish tab, l tablet 13:44: Route: PO, Karley nn Drug form: TAB, Q4H, Dosing Weight 54.545, [...] day, Stop date: 01/29/13 8:43:00 tramadol 50 2012- No Leona H 50 mg, 1 Memoria [...] 9 Mahesh Route: l 06:00: IVPB, Drug Dawn form: PDR/INJ, ABXQ8H, Dosing Weight 54.545, kg, [...] 12-30 Mahesh Route: l 06:00: IVPB, Drug Dawn form: PDR/INJ, ABXQ8H, Dosing Weight 54.545, kg, Start date: 12/30/12 1:00:00, Duration: 2 day, Stop date: 12/31/12 17:00:00 cefazolin 2012-0 No Lily 1 gm, Memor ia 9 Mahesh Route: l 06:00: IVPB, Drug Dawn 00 form: PDR/INJ, ABXQ8H, Dosing Weight 54.545, kg, Start date: 12/30/12 1:00:00, Duration: 2 day, Stop date: 12/31/12 17:00:00 cefazolin 2012-0 No Lily 1 gm, Memor ia 9- Mahesh Route: l 06:00: IVPB, Drug Bryson [...] 12-30 Aragon tab, l 05:18: Route: PO, Dawn 00 Drug form: TAB, Q8H, Dosing Weight 54.545, kg, PRN Nausea, Start date: 12/30/12 0:18:00, Duration: 30 day, Stop date: 01/29/13 0:17:00 Zofran 2013-0 No Lily 4 mg, 1 Memori a 12-30 Aragon tab, l 05:18: Route: PO, Dawn 00 Drug form: TAB, Q8H, Dosing Weight 54.545, kg, PRN Nausea, Start date: 12/30/12 0:18:00, Duration: 30 day, Stop date: 01/29/13 0:17:00 Zofran 2013-0 No Lily 4 mg, 1 Memori a 12-30 Aragon tab, l 05:18: Route: PO, Dawn 00 Drug form: TAB, Q8H, Dosing Weight [...] 12-30 Aragon tab, l 05:18: Route: PO, Dawn 00 Drug form: TAB, Q8H, Dosing Weight 54.545, kg, PRN Nausea, Start date: 12/30/12 0:18:00, Duration: 30 day, Stop date: 01/29/13 0:17:00 Zofran 2012-0 No Lily 4 mg, 1 Memori a 12-30 Aragon tab, l 05:18: Route: PO, Dawn 00 Drug form: TAB, Q8H, Dosing Weight 54.545, kg, PRN Nausea, Start date: 12/30/12 0:18:00, Duration: 30 day, Stop date: 01/29/13 0:17:00 Zofran 2013-0 No Lily 4 mg, 1 Memori a 12-30 Aragon tab, l 05:18: Route: PO, Dawn 00 Drug form: TAB, Q8H, Dosing Weight 54.545, kg, PRN Nausea, Start date: 12/30/12 0:18:00, Duration: 30 day, Stop date: 01/29/13 0:17:00 Zofran 2012-0 No Lily 4 mg, 1 Memori a 12-30 Aragon tab, l 05:18: Route: PO, Dawn 00 Drug form: TAB, Q8H, Dosing Weight 54.545, kg, PRN Nausea, Start date: 12/30/12 0:18:00, Duration: 30 day, Stop date: 01/29/13 0:17:00 Ultra 50 2012-0 No Dejon 100 mg, 2 Mem oria mg oral 12-30 Chibueze tab, l tablet 03:16: Osuagwu Route: PO, [facility] Drug form: TAB, ONCE, Dosing Weight 54.545, kg, Start date: 12/29/12 22:16:00, Stop date: 12/29/12 22:16:00 Ultra 50 2012-0 No Dejon 100 mg, 2 Mem oria mg oral 12-30 Chibueze tab, l tablet 03:16: Osuagwu Route: PO, [facility] Drug form: TAB, ONCE, Dosing Weight 54.545, kg, Start date: 12/29/12 22:16:00, Stop date: 12/29/12 22:16:00 Ultra 50 2012-0 No Dejon 100 mg, 2 Mem oria mg oral 12-30 Chibueze tab, l tablet 03:16: Osuagwu Route: PO, [facility] Drug form: TAB, ONCE, Dosing Weight 54.545, kg, Start date: 12/29/12 22:16:00, Stop date: 12/29/12 22:16:00 Ultra 50 2012-0 No Dejon 100 mg, 2 Mem oria mg oral 12-30 Chibueze tab, l tablet 03:16: Osuagwu Route: PO, [facility] Drug form: TAB, ONCE, Dosing Weight 54.545, kg, Start date: 12/29/12 22:16:00, Stop date: 12/29/12 22:16:00 Ultra 50 2012-0 No Dejon 100 mg, 2 Mem oria mg oral 12-30 Chibueze tab, l tablet 03:16: Osuagwu Route: PO, [facility] Drug form: TAB, ONCE, Dosing Weight 54.545, kg, Start date: 12/29/12 22:16:00, Stop date: 12/29/12 22:16:00 Ultram 50 2012-0 No Dejon 100 mg, 2 Mem oria mg oral - Chibueze tab, l tablet 03:16: Osuagwu Route: PO, [facility] Drug form: TAB, ONCE, Dosing Weight 54.545, kg, Start date: 12/29/12 22:16:00, Stop date: 12/29/12 22:16:00 Ultram 50 2012-0 No Dejon 100 mg, 2 Mem oria mg oral - Chibueze tab, l tablet 03:16: Osuagwu Route: PO, [facility] Drug form: TAB, ONCE, Dosing Weight 54.545, kg, Start date: 12/29/12 22:16:00, Stop date: 12/29/12 22:16:00 Ultram 50 2012-0 No Dejon 100 mg, 2 Mem oria mg oral - Chibueze tab, l tablet 03:16: Osuagwu Route: PO, [facility] Drug form: TAB, ONCE, Dosing Weight 54.545, kg, Start date: 12/29/12 22:16:00, Stop date: 12/29/12 22:16:00 Ultram 50 2012-0 No Dejon 100 mg, 2 Mem oria mg oral - Chibueze tab, l tablet 03:16: Osuagwu Route: PO, [facility] Drug form: TAB, ONCE, Dosing Weight 54.545, kg, Start date: 12/29/12 22:16:00, Stop date: 12/29/12 22:16:00 Ultram 50 2012-0 No Dejon 100 mg, 2 Mem oria mg oral - Chibueze tab, l tablet 03:16: Osuagwu Route: PO, [facility] Drug form: TAB, ONCE, Dosing Weight 54.545, kg, Start date: 12/29/12 22:16:00, Stop date: 12/29/12 22:16:00 Valium 2012-0 No Leona H 5 mg, 1 Memori a 12-29 Khraish tab, l 22:00: Route: PO, Dawn 00 Drug form: TAB, BID, Dosing Weight 54.545, kg, Start date: 12/29/12 17:00:00, Duration: 30 day, Stop date: 01/28/13 9:00:00 Valium 2013-0 No Leona H 5 mg, 1 Memori a 8-31 Khraish tab, l 22:00: Route: PO, Dawn 00 Drug form: TAB, BID, Dosing Weight 54.545, kg, Start date: 12/29/12 17:00:00, Duration: 30 day, Stop date: 01/28/13 9:00:00 Valium 2013-0 No Leona H 5 mg, 1 Memori a 8-31 Khraish tab, l 22:00: Route: PO, Dawn 00 Drug form: TAB, BID, Dosing Weight [...] 8-31 Khraish tab, l 22:00: Route: PO, Dawn 00 Drug form: TAB, BID, Dosing Weight [...] 8-31 Khraish tab, l 22:00: Route: PO, Dawn 00 Drug form: TAB, BID, Dosing Weight 54.545, kg, Start date: 12/29/12 17:00:00, Duration: 30 day, Stop date: 01/28/13 9:00:00 Valium 2012-0 No Leona H 5 mg, 1 Memori a 12-29 Khraish tab, l 22:00: Route: PO, Dawn 00 Drug form: TAB, BID, Dosing Weight [...] Spencer 5 mL, Memoria Posiflush 12-29 Philip [place] Route: l SF 14:00: IVP, Drug Form: INJ, Q12H, Start date: 12/29/12 9:00:00, Duration: 30 day, Stop date: 01/27/13 21:00:00 nicotine 2012-0 No Татьяна Yen 7 mg, 1 Mem oria 12-29 Thi Alanis patch, l 14:00: Route: Dawn 00 TOP, Drug form: ERFILM, Daily, Dosing [...] Spencer 5 mL, Memoria Posiflush 12-29 Philip [place] Route: l SF 14:00: IVP, Drug Form: [...] 0 No Spencer 5 mL, Memoria Posiflush 12-29 Philip [place] Route: l SF 14:00: IVP, Drug Form: INJ, Q12H, Start date: 12/29/12 9:00:00, Duration: 30 day, Stop date: 01/27/13 21:00:00 nicotine 2012-0 No Татьяна Yen 7 mg, 1 Mem oria 12-29 Thi Alanis patch, l 14:00: Route: Dawn 00 TOP, Drug form: ERFILM, Daily, Dosing [...] BD No Spencer 5 mL, Memoria Posiflush 8-31 Philip [place] Route: l SF 14:00: IVP, Drug Form: [...] Spencer 5 mL, Memoria Posiflush 8-31 Philip [place] Route: l SF 14:00: IVP, Drug Form: INJ, Q12H, Start date: 12/29/12 9:00:00, Duration: 30 day, Stop date: 01/27/13 21:00:00 nicotine 2012-0 No Татьяна Yen 7 mg, 1 Mem oria 8-31 Thi Alanis patch, l 14:00: Route: Dawn 00 TOP, Drug form: ERFILM, Daily, Dosing [...] Spencer 5 mL, Memoria Posiflush 12-29 Philip [place] Route: l SF 14:00: IVP, Drug Form: [...] Spencer 5 mL, Memoria Posiflush 12-29 Philip [place] Route: l SF 14:00: IVP, Drug Form: INJ, Q12H, Start date: 12/29/12 9:00:00, Duration: 30 day, Stop date: 01/27/13 21:00:00 nicotine 2012-0 No Татьяна Yen 7 mg, 1 Mem oria 31 Thi Alanis patch, l 14:00: Route: Dawn 00 TOP, Drug form: ERFILM, Daily, Dosing [...] Spencer 5 mL, Memoria Posiflush 12-29 Philip [place] Route: l SF 14:00: IVP, Drug Form: INJ, Q12H, Start date: 12/29/12 9:00:00, Duration: 30 day, Stop date: 01/27/13 21:00:00 nicotine 2012-0 No Татьяна Yen 7 mg, 1 Mem oria 12-29 Thi Alanis patch, l 14:00: Route: Dawn 00 TOP, Drug form: ERFILM, Daily, Dosing [...] Stop date: 01/02/13 9:00:00 BD 0 No Spnecer 5 mL, Memoria Posiflush 8-31 Philip [place] Route: l SF 14:00: IVP, Drug Form: INJ, Q12H, Start date: 12/29/12 9:00:00, Duration: 30 day, Stop date: 01/27/13 21:00:00 nicotine 2012-0 No Татьяна Yen 7 mg, 1 Mem oria 8-31 Thi Alanis patch, l 14:00: Route: Dawn TOP, Drug form: ERFILM, Daily, Dosing Weight [...] 2012-0 No Spencer 5 mL, Memoria Posiflush 8-31 Philip [place] Route: l SF 14:00: IVP, Drug Form: INJ, Q12H, Start date: 12/29/12 9:00:00, Duration: 30 day, Stop date: 01/27/13 21:00:00 nicotine 2012-0 No Татьяна Yen 7 mg, 1 Mem oria 8-31 Thi Alanis patch, l 14:00: Route: Dawn TOP, Drug form: ERFILM, Daily, Dosing Weight [...] Edward 0.25 mL, l 13:07: [place] Route: Dawn 00 IVP, Drug form: INJ, Q5Min, Dosing [...] Edward 0.1 mL, l 13:07: [place] Route: Dawn 00 IVP, Drug form: INJ, Q2MIN, Dosing [...] Edward 0.1 mL, l 13:07: [place] Route: Dawn 00 IVP, Drug form: INJ, Q2MIN, Dosing [...] Edward 0.1 mL, l 13:07: [place] Route: Dawn 00 IVP, Drug form: INJ, Q2MIN, Dosing [...] Edward 0.25 mL, l 13:07: [place] Route: Dawn 00 IVP, Drug form: INJ, Q5Min, Dosing [...] Edward 0.1 mL, l 13:07: [place] Route: Dawn 00 IVP, Drug form: INJ, Q2MIN, Dosing [...] Edward 0.25 mL, l 13:07: [place] Route: Dawn IVP, Drug form: INJ, Q5Min, Dosing Weight [...] Route: l 13:07: [place] IVP, Drug Herm boza 00 form: INJ, ONCE, Dosing Weight 54.545, kg, PRN Nausea & Vomiting, Start date: 12/29/12 8:07:00 naloxone 2012-0 No Gato 0.04 mg, Magdaleno pilo 12-29 Edward 0.1 mL, l 13:07: [place] Route: Dawn IVP, Drug form: INJ, Q2MIN, Dosing Weight [...] Edward 0.25 mL, l 13:07: [place] Route: Dawn 00 IVP, Drug form: INJ, Q5Min, Dosing [...] Stop date: Limited # of times potassium 2012- No Татьяна Yen 40 mEq, 2 Memoria chloride 12-29 Thi Alanis tab, l 13:00: Route: PO, Bryson 00 Drug form: ERTAB, ONCE, Dosing Weight 54.545, kg, Priority: Routine, Start date: 12/29/12 8:00:00, Stop date: 12/29/12 8:00:00 potassium 2012-0 No Татьяна Yen 40 mEq, 2 Memoria chloride 12-29 Thi Alanis tab, l 13:00: Route: PO, Dawn 00 Drug form: ERTAB, ONCE, Dosing Weight 54.545, kg, Priority: Routine, Start date: 12/29/12 8:00:00, Stop date: 12/29/12 8:00:00 potassium 2013-0 No Татьяна Yen 40 mEq, 2 Memoria chloride 8-31 Thi Alanis tab, l 13:00: Route: PO, Dawn 00 Drug form: ERTAB, ONCE, Dosing Weight [...] Thi Alanis tab, l 13:00: Route: PO, Dawn 00 Drug form: ERTAB, ONCE, Dosing Weight [...] Thi Alanis tab, l 13:00: Route: PO, Dawn 00 Drug form: ERTAB, ONCE, Dosing Weight 54.545, kg, Priority: Routine, Start date: 12/29/12 8:00:00, Stop date: 12/29/12 8:00:00 potassium 2013-0 No Татьяна Yen 40 mEq, 2 Memoria chloride 8-31 Thi Alanis tab, l 13:00: Route: PO, Dawn 00 Drug form: ERTAB, ONCE, Dosing Weight 54.545, kg, Priority: Routine, Start date: 12/29/12 8:00:00, Stop date: 12/29/12 8:00:00 potassium 2012-0 No Татьяна Yen 40 mEq, 2 Memoria chloride 8-31 Thi Alanis tab, l 13:00: Route: PO, Bryson 00 Drug form: ERTAB, ONCE, Dosing Weight 54.545, kg, Priority: Routine, Start date: 12/29/12 8:00:00, Stop date: 12/29/12 8:00:00 Gomer 2012-0 No Татьяна Yen 1 tab, Memoria 10/325 oral 8-31 Thi Alanis Route: PO, l tablet 11:00: Drug Form: Karley nn 00 TAB, Dosing Weight 54.545, kg, Q6H, Start date: 12/29/12 6:00:00, Duration: 30 day, Stop date: 01/28/13 0:00:00 Gomer 2012-0 No Татьяна Yen 1 tab, Memoria 10/325 oral 8-31 Thi Alanis Route: PO, l tablet 11:00: Drug Form: Karley nn 00 TAB, Dosing Weight 54.545, kg, Q6H, Start date: 12/29/12 6:00:00, Duration: 30 day, Stop date: 01/28/13 0:00:00 Gomer 2012-0 No Татьяна Yen 1 tab, Memoria 10/325 oral 8-31 Thi Alanis Route: PO, l tablet 11:00: Drug Form: Karley nn 00 TAB, Dosing Weight 54.545, kg, Q6H, Start date: 12/29/12 6:00:00, Duration: 30 day, Stop date: 01/28/13 0:00:00 Gomer 2012-0 No Татьяна Yen 1 tab, Memoria 10/325 oral 8-31 Thi Alanis Route: PO, l tablet 11:00: Drug Form: Karley nn 00 TAB, Dosing Weight 54.545, kg, Q6H, Start date: 12/29/12 6:00:00, Duration: 30 day, Stop date: 01/28/13 0:00:00 Gomer 0 No Татьяна Yen 1 tab, Memoria 10/325 oral 8-31 Thi Alanis Route: PO, l tablet 11:00: Drug Form: Karley nn 00 TAB, Dosing Weight 54.545, kg, Q6H, Start date: 12/29/12 6:00:00, Duration: 30 day, Stop date: 01/28/13 0:00:00 Gomer 0 No Татьяна Yen 1 tab, Memoria 10/325 oral 8-31 Thi Alanis Route: PO, l tablet 11:00: Drug Form: Karley nn 00 TAB, Dosing Weight 54.545, kg, Q6H, Start date: 12/29/12 6:00:00, Duration: 30 day, Stop date: 01/28/13 0:00:00 Gomer 0 No Татьяна Yen 1 tab, Memoria 10/325 oral 8-31 Thi Alanis Route: PO, l tablet 11:00: Drug Form: Karley nn 00 TAB, Dosing Weight 54.545, kg, Q6H, Start date: 12/29/12 6:00:00, Duration: 30 day, Stop date: 01/28/13 0:00:00 Gomer 0 No Татьяна Yen 1 tab, Memoria 10/325 oral 8-31 Thi Alanis Route: PO, l tablet 11:00: Drug Form: Karley nn 00 TAB, Dosing Weight 54.545, kg, Q6H, Start date: 12/29/12 6:00:00, Duration: 30 day, Stop date: 01/28/13 0:00:00 Gomer 0 No Татьяна Yen 1 tab, Memoria 10/325 oral 8-31 Thi Alanis Route: PO, l tablet 11:00: Drug Form: Karley nn 00 TAB, Dosing Weight 54.545, kg, Q6H, Start date: 12/29/12 6:00:00, Duration: 30 day, Stop date: 01/28/13 0:00:00 Gomer 2013-0 No Татьяна Yen 1 tab, Memoria 10/325 oral 8-31 Thi Alanis Route: PO, l tablet 11:00: Drug Form: Karley nn 00 TAB, Dosing Weight 54.545, kg, Q6H, Start date: 12/29/12 6:00:00, Duration: 30 day, Stop date: 01/28/13 0:00:00 LORAzepam 2012-0 No Татьяна Yen 0.5 mg, Me moria 8-31 Thi Alanis 0.25 mL, l 10:22: Route: Dawn 00 IVP, Drug form: INJ, Q2H, Dosing [...] Yen 0.5 mg, Me moria 8-31 Thi Alains 0.25 mL, l 10:22: Route: Dawn 00 IVP, Drug form: INJ, Q2H, Dosing Weight 54.545, kg, PRN Agitation, Start date: 12/29/12 5:22:00, Duration: 30 day, Stop date: 01/28/13 5:21:00 LORAzepam 2012-0 No Татьяна Yen 0.5 mg, Me moria 8-31 Thi Alanis 0.25 mL, l 10:22: Route: Dawn 00 IVP, Drug form: INJ, Q2H, Dosing [...] Thi Alanis 0.25 mL, l 10:22: Route: Dawn 00 IVP, Drug form: INJ, Q2H, Dosing Weight 54.545, kg, PRN Agitation, Start date: 12/29/12 5:22:00, Duration: 30 day, Stop date: 01/28/13 5:21:00 LORAzepam 2013-0 No Татьяна Yen 0.5 mg, Me moria 8-31 Thi Alanis 0.25 mL, l 10:22: Route: Brysno 00 IVP, Drug form: INJ, Q2H, Dosing [...] Khraish mL, Route: l 09:34: IV, Drug Dawn 00 form: INJ, Q4H, Dosing Weight 54.545, [...] Khraish mL, Route: l 09:34: IV, Drug Dawn 00 form: INJ, Q4H, Dosing Weight 54.545, [...] Khraish mL, Route: l 09:34: IV, Drug Dawn 00 form: INJ, Q4H, Dosing Weight 54.545, [...] Khraish mL, Route: l 09:34: IV, Drug Dawn 00 form: INJ, Q4H, Dosing Weight 54.545, [...] Khraish mL, Route: l 09:34: IV, Drug Dawn 00 form: INJ, Q4H, Dosing Weight 54.545, [...] Thi Alanis Route: l 09:32: IVP, Drug Dawn 00 Form: INJ, Dosing Weight 54.545, kg, PRN, PRN Line Flush, Start date: 12/29/12 4:32:00, Duration: 30 day, Stop date: 01/28/13 4:31:00 Saline 2012-0 No Татьяна Yen 5 mL, Memoria Flush 0.9% -31 Thi Alanis Route: l 09:32: IVP, Drug Dawn 00 Form: INJ, Dosing Weight 54.545, kg, PRN, PRN Line Flush, Start date: 12/29/12 4:32:00, Duration: 30 day, Stop date: 01/28/13 4:31:00 Saline 2012-0 No Татьяна Yen 5 mL, Memoria Flush 0.9% -31 Thi Alanis Route: l 09:32: IVP, Drug Dawn 00 Form: INJ, Dosing Weight 54.545, kg, PRN, PRN Line Flush, Start date: 12/29/12 4:32:00, Duration: 30 day, Stop date: 01/28/13 4:31:00 Saline 2012-0 No Татьяна Yen 5 mL, Memoria Flush 0.9% 8-31 Thi Alanis Route: l 09:32: IVP, Drug Dawn 00 Form: INJ, Dosing Weight 54.545, kg, PRN, PRN Line Flush, Start date: 12/29/12 4:32:00, Duration: 30 day, Stop date: 01/28/13 4:31:00 Saline 2012-0 No Татьяна Yen 5 mL, Memoria Flush 0.9% 8-31 Thi Alanis Route: l 09:32: IVP, Drug Dawn 00 Form: INJ, Dosing Weight 54.545, kg, PRN, PRN Line Flush, Start date: 12/29/12 4:32:00, Duration: 30 day, Stop date: 01/28/13 4:31:00 Saline 2012-0 No Татьяна Yen 5 mL, Memoria Flush 0.9% 8-31 Thi Alanis Route: l 09:32: IVP, Drug Dawn 00 Form: INJ, Dosing Weight 54.545, kg, PRN, PRN Line Flush, Start date: 12/29/12 4:32:00, Duration: 30 day, Stop date: 01/28/13 4:31:00 Saline 2012-0 No Татьяна Yen 5 mL, Memoria Flush 0.9% 8-31 Thi Alanis Route: l 09:32: IVP, Drug Dawn 00 Form: INJ, Dosing Weight 54.545, kg, PRN, PRN Line Flush, Start date: 12/29/12 4:32:00, Duration: 30 day, Stop date: 01/28/13 4:31:00 Saline 2012-0 No Татьяна Yen 5 mL, Memoria Flush 0.9% 8-31 Thi Alanis Route: l 09:32: IVP, Drug Dawn 00 Form: INJ, Dosing Weight 54.545, kg, [...] Thi Alanis tab, l 09:31: Route: PO, Dawn 00 Drug form: ERTAB, ONCE, Dosing Weight 54.545, kg, Priority: STAT, Start date: 12/29/12 4:31:00, Stop date: 12/29/12 4:31:00 potassium 2012-0 No Татьяна Yen 40 mEq, 2 Memoria chloride 8-31 Thi Alanis tab, l 09:31: Route: PO, Dawn 00 Drug form: ERTAB, ONCE, Dosing Weight [...] Thi Alanis tab, l 09:31: Route: PO, Dawn 00 Drug form: ERTAB, ONCE, Dosing Weight 54.545, kg, Priority: STAT, Start date: 12/29/12 4:31:00, Stop date: 12/29/12 4:31:00 potassium 2013-0 No Татьяна Yen 40 mEq, [...] 2 mg, 1 Memori a 8-31 [place] mL, Route: l 06:34: IVP, Drug Dawn 00 form: INJ, ONCE, Dosing Weight 54.545, kg, Priority: STAT, Start date: 12/29/12 1:34:00, Stop date: 12/29/12 1:34:00 Ativan 2013-0 No Spencer 2 mg, 1 Memori a 8-31 [place] mL, Route: l 06:34: IVP, Drug Bryson 00 form: INJ, ONCE, Dosing Weight 54.545, kg, Priority: STAT, Start date: 12/29/12 1:34:00, Stop date: 12/29/12 1:34:00 Ativan 2012-0 No Spencer 2 mg, 1 Memori a 8-31 [place] mL, Route: l 06:34: IVP, Drug Byrson 00 form: INJ, ONCE, Dosing Weight 54.545, kg, Priority: STAT, Start date: 12/29/12 1:34:00, Stop date: 12/29/12 1:34:00 Ativan 2012-0 No Spencer 2 mg, 1 Memori a 8-31 [place] mL, Route: l 06:34: IVP, Drug Bryson 00 form: INJ, ONCE, Dosing Weight 54.545, kg, Priority: STAT, Start date: 12/29/12 1:34:00, Stop date: 12/29/12 1:34:00 Ativan 2012-0 No Spencer 2 mg, 1 Memori a 8-31 [place] mL, Route: l 06:34: IVP, Drug Dawn 00 form: INJ, ONCE, Dosing Weight 54.545, kg, Priority: STAT, Start date: 12/29/12 1:34:00, Stop date: 12/29/12 1:34:00 Ativan 2012-0 No Spencer 2 mg, 1 Memori a 8-31 [place] mL, Route: l 06:34: IVP, Drug Bryson 00 form: INJ, ONCE, Dosing Weight 54.545, kg, Priority: STAT, Start date: 12/29/12 1:34:00, Stop date: 12/29/12 1:34:00 Ativan 2012-0 No Spencer 2 mg, 1 Memori a 8-31 [place] mL, Route: l 06:34: IVP, Drug Dawn 00 form: INJ, ONCE, Dosing Weight 54.545, kg, Priority: STAT, Start date: 12/29/12 1:34:00, Stop date: 12/29/12 1:34:00 Ativan 2012-0 No Spencer 2 mg, 1 Memori a 8-31 [place] mL, Route: l 06:34: IVP, Drug Bryson 00 form: INJ, ONCE, Dosing Weight 54.545, kg, Priority: STAT, Start date: 12/29/12 1:34:00, Stop date: 12/29/12 1:34:00 Ativan 2012-0 No Spencer 2 mg, 1 Memori a 8-31 [place] mL, Route: l 06:34: IVP, Drug Dawn 00 form: INJ, ONCE, Dosing Weight 54.545, kg, Priority: STAT, Start date: 12/29/12 1:34:00, Stop date: 12/29/12 1:34:00 Ativan 2012-0 No Spencer 2 mg, 1 Memori a 8-31 [place] mL, Route: l 06:34: IVP, Drug Bryson 00 form: INJ, ONCE, Dosing Weight 54.545, kg, Priority: STAT, Start date: 12/29/12 1:34:00, Stop date: 12/29/12 1:34:00 Ancef 2012-0 No Spencer 1 gm, [facility]oria 8-31 [place] Route: l 06:16: IVPB, Drug Bryson 00 form: PDR/INJ, ONCE, Dosing Weight 54.545, kg, Priority: STAT, Start date: 12/29/12 1:16:00, Stop date: 12/29/12 1:16:00 gentamicin 2012-0 No Spencer 272 mg, Me moria + Sodium 8-31 [place] 6.8 mL, l Chloride 06:16: Route: Dawn 0.9% IV 100 00 IVPB, mL ONCE, Dosing Weight 54.545, kg, Priority: STAT, Start date: 12/29/12 1:16:00, Stop date: 12/29/12 1:16:00 Ancef 2012-0 No Spencer 1 gm, [facility]oria 8-31 [place] Route: l 06:16: IVPB, Drug Dawn 00 form: PDR/INJ, ONCE, Dosing Weight 54.545, kg, Priority: STAT, Start date: 12/29/12 1:16:00, Stop date: 12/29/12 1:16:00 gentamicin 2012-0 No Spencer 272 mg, Me moria + Sodium 8-31 [place] 6.8 mL, l Chloride 06:16: Route: Bryson 0.9% IV 100 00 IVPB, mL ONCE, Dosing Weight 54.545, kg, Priority: STAT, Start date: 12/29/12 1:16:00, Stop date: 12/29/12 1:16:00 Ancef 2012-0 No Spencer 1 gm, Memoria 8-31 [place] Route: l 06:16: IVPB, Drug Bryson 00 form: PDR/INJ, ONCE, Dosing Weight 54.545, kg, Priority: STAT, Start date: 12/29/12 1:16:00, Stop date: 12/29/12 1:16:00 gentamicin 2012-0 No Spencer 272 mg, Me moria + Sodium 8-31 [place] 6.8 mL, l Chloride 06:16: Route: Bryson 0.9% IV 100 00 IVPB, mL ONCE, Dosing Weight 54.545, kg, Priority: STAT, Start date: 12/29/12 1:16:00, Stop date: 12/29/12 1:16:00 Ancef 2012-0 No Spencer 1 gm, Memoria 8-31 [place] Route: l 06:16: IVPB, Drug Bryson 00 form: PDR/INJ, ONCE, Dosing Weight 54.545, kg, Priority: STAT, Start date: 12/29/12 1:16:00, Stop date: 12/29/12 1:16:00 gentamicin 2012-0 No Spencer 272 mg, Me moria + Sodium 8-31 [place] 6.8 mL, l Chloride 06:16: Route: Dawn 0.9% IV 100 00 IVPB, mL ONCE, Dosing Weight 54.545, kg, Priority: STAT, Start date: 12/29/12 1:16:00, Stop date: 12/29/12 1:16:00 Ancef 0 No Spencer 1 gm, [facility]oria 8-31 [place] Route: l 06:16: IVPB, Drug Bryson 00 form: PDR/INJ, ONCE, Dosing Weight 54.545, kg, Priority: STAT, Start date: 12/29/12 1:16:00, Stop date: 12/29/12 1:16:00 gentamicin 2012-0 No Spencer 272 mg, Me moria + Sodium 8-31 [place] 6.8 mL, l Chloride 06:16: Route: Bryson 0.9% IV 100 00 IVPB, mL ONCE, Dosing Weight 54.545, kg, Priority: STAT, Start date: 12/29/12 1:16:00, Stop date: 12/29/12 1:16:00 Ancef 0 No Spencer 1 gm, [facility]oria 8-31 [place] Route: l 06:16: IVPB, Drug Bryson form: PDR/INJ, ONCE, Dosing Weight 54.545, kg, Priority: STAT, Start date: 12/29/12 1:16:00, Stop date: 12/29/12 1:16:00 gentamicin 2012-0 No Spencer 272 mg, Me moria + Sodium 8-31 [place] 6.8 mL, l Chloride 06:16: Route: Dawn 0.9% IV 100 00 IVPB, mL ONCE, Dosing Weight 54.545, kg, Priority: STAT, Start date: 12/29/12 1:16:00, Stop date: 12/29/12 1:16:00 Ancef 0 No Spencer 1 gm, Memoria 8-31 [place] Route: l 06:16: IVPB, Drug Dawn form: PDR/INJ, ONCE, Dosing Weight 54.545, kg, Priority: STAT, Start date: 12/29/12 1:16:00, Stop date: 12/29/12 1:16:00 gentamicin 0 No Spencer 272 mg, Me moria + Sodium 8-31 [place] 6.8 mL, l Chloride 06:16: Route: Bryson 0.9% IV 100 00 IVPB, mL ONCE, Dosing Weight 54.545, kg, Priority: STAT, Start date: 12/29/12 1:16:00, Stop date: 12/29/12 1:16:00 Ancef 0 No Spencer 1 gm, Memoria 8-31 [place] Route: l 06:16: IVPB, Drug Dawn 00 form: PDR/INJ, ONCE, Dosing Weight 54.545, kg, Priority: STAT, Start date: 12/29/12 1:16:00, Stop date: 12/29/12 1:16:00 gentamicin 2012-0 No Spencer 272 mg, Me moria + Sodium 8-31 [place] 6.8 mL, l Chloride 06:16: Route: Dawn 0.9% IV 100 00 IVPB, mL ONCE, Dosing Weight 54.545, kg, Priority: STAT, Start date: 12/29/12 1:16:00, Stop date: 12/29/12 1:16:00 Ancef 2012-0 No Spencer 1 gm, Memoria 8- [facility] [place] Route: l 06:16: IVPB, Drug Dawn form: PDR/INJ, ONCE, Dosing Weight 54.545, kg, Priority: STAT, Start date: 12/29/12 1:16:00, Stop date: 12/29/12 1:16:00 gentamicin 2012-0 No Spencer 272 mg, Me moria + Sodium 8-31 [place] 6.8 mL, l Chloride 06:16: Route: Bryson 0.9% IV 100 00 IVPB, mL ONCE, Dosing Weight 54.545, kg, Priority: STAT, Start date: 12/29/12 1:16:00, Stop date: 12/29/12 1:16:00 Ancef 0 No Spencer 1 gm, [facility] - [facility] [place] Route: l 06:16: IVPB, Drug Dawn 00 form: PDR/INJ, ONCE, Dosing Weight 54.545, kg, Priority: STAT, Start date: 12/29/12 1:16:00, Stop date: 12/29/12 1:16:00 gentamicin 2012-0 No Spencer 272 mg, Me moria + Sodium 8-31 [place] 6.8 mL, l Chloride 06:16: Route: Dawn 0.9% IV 100 00 IVPB, mL ONCE, Dosing Weight 54.545, kg, Priority: STAT, Start date: 12/29/12 1:16:00, Stop date: 12/29/12 1:16:00 lidocaine-e 2012-0 No Spencer 1 ml, Mem oria pi - [facility] [place] Route: l 1%-[id number] 05:42: SUB-Q, Herm boaz Drug Form: SOLN, Dosing Weight 54.545, kg, ONCE, STAT, Start date: 12/29/12 0:42:00, Stop date: 12/29/12 0:42:00 lidocaine-e 2012-0 No Spencer 1 ml, Mem oria pi 8 [facility] [place] Route: l 1%-1:[id number] 05:42: SUB-Q, Herm boaz 00 Drug Form: SOLN, Dosing Weight 54.545, kg, ONCE, STAT, Start date: 12/29/12 0:42:00, Stop date: 12/29/12 0:42:00 lidocaine-e No Spencer 1 ml, Mem oria pi 12-29 [place] Route: l 1%-1:[id number] 05:42: SUB-Q, Herm boaz 00 Drug Form: SOLN, Dosing Weight 54.545, kg, ONCE, STAT, Start date: 12/29/12 0:42:00, Stop date: 12/29/12 0:42:00 lidocaine-e No Spencer 1 ml, Mem oria pi 12-29 [place] Route: l 1%-[id number] 05:42: SUB-Q, Herm boaz 00 Drug Form: SOLN, Dosing Weight 54.545, kg, ONCE, STAT, Start date: 12/29/12 0:42:00, Stop date: 12/29/12 0:42:00 lidocaine-e No Spencer 1 ml, Mem oria pi 12-29 [place] Route: l 1%-1:[id number] 05:42: SUB-Q, Herm boaz 00 Drug Form: SOLN, Dosing Weight 54.545, kg, ONCE, STAT, Start date: 12/29/12 0:42:00, Stop date: 12/29/12 0:42:00 lidocaine-e 0 No Spencer 1 ml, Mem oria pi 8- [place] Route: l 1%-1:[id number] 05:42: SUB-Q, Herm boaz 00 Drug Form: SOLN, Dosing Weight 54.545, kg, ONCE, STAT, Start date: 12/29/12 0:42:00, Stop date: 12/29/12 0:42:00 lidocaine-e 2012-0 No Spencer 1 ml, Mem oria pi 8-31 [place] Route: l 1%-1:[id number] 05:42: SUB-Q, Herm boaz 00 Drug Form: SOLN, Dosing Weight 54.545, kg, ONCE, STAT, Start date: 12/29/12 0:42:00, Stop date: 12/29/12 0:42:00 lidocaine-e 2012- No Spencer 1 ml, Mem oria pi 8-31 [place] Route: l 1%-1:[id number] 05:42: SUB-Q, Herm boaz 00 Drug Form: SOLN, Dosing Weight 54.545, kg, ONCE, STAT, Start date: 12/29/12 0:42:00, Stop date: 12/29/12 0:42:00 lidocaine-e No Spencer 1 ml, Mem oria pi 8- [place] Route: l 1%-1:[id number] 05:42: SUB-Q, Herm boaz Drug Form: SOLN, Dosing Weight 54.545, kg, ONCE, STAT, Start date: 12/29/12 0:42:00, Stop date: 12/29/12 0:42:00 lidocaine-e 0 No Spencer 1 ml, Mem oria pi 8- [place] Route: l 1%-1:548900 05:42: SUB-Q, Herm boaz Drug Form: SOLN, Dosing Weight 54.545, kg, ONCE, STAT, Start date: 12/29/12 0:42:00, Stop date: 12/29/12 0:42:00 Dilaudid 0 No Spencer 2 mg, 1 Magdaleno pilo 8-31 [place] mL, Route: l 05:41: IV, Drug Bryson 00 form: INJ, ONCE, Dosing Weight 54.545, kg, Start date: 12/29/12 0:41:00, Stop date: 12/29/12 0:41:00 Dilaudid 2012-0 No Spencer 2 mg, 1 Magdaleno pilo 8-31 [place] mL, Route: l 05:41: IV, Drug Dawn 00 form: INJ, ONCE, Dosing Weight 54.545, kg, Start date: 12/29/12 0:41:00, Stop date: 12/29/12 0:41:00 Dilaudid 2012-0 No Spencer 2 mg, 1 Magdaleno pilo 8-31 [place] mL, Route: l 05:41: IV, Drug Bryson 00 form: INJ, ONCE, Dosing Weight 54.545, kg, Start date: 12/29/12 0:41:00, Stop date: 12/29/12 0:41:00 Dilaudid 2012-0 No Spencer 2 mg, 1 Magdaleno pilo 8-31 [facility] [place] mL, Route: l 05:41: IV, Drug Bryson 00 form: INJ, ONCE, Dosing Weight 54.545, kg, Start date: 12/29/12 0:41:00, Stop date: 12/29/12 0:41:00 Dilaudid 0 No Spencer 2 mg, 1 Magdaleno pilo 8-31 [facility] [place] mL, Route: l 05:41: IV, Drug Bryson 00 form: INJ, ONCE, Dosing Weight 54.545, kg, Start date: 12/29/12 0:41:00, Stop date: 12/29/12 0:41:00 Dilaudid 0 No Spencer 2 mg, 1 Magdaleno pilo 8-31 [facility] [place] mL, Route: l 05:41: IV, Drug Bryson 00 form: INJ, ONCE, Dosing Weight 54.545, kg, Start date: 12/29/12 0:41:00, Stop date: 12/29/12 0:41:00 Dilaudid 0 No Spencer 2 mg, 1 Magdaleno pilo 8-31 [facility] [place] mL, Route: l 05:41: IV, Drug Bryson 00 form: INJ, ONCE, Dosing Weight 54.545, kg, Start date: 12/29/12 0:41:00, Stop date: 12/29/12 0:41:00 Dilaudid 2012-0 No Spencer 2 mg, 1 Magdaleno pilo 8-31 [facility] [place] mL, Route: l 05:41: IV, Drug Dawn 00 form: INJ, ONCE, Dosing Weight 54.545, kg, Start date: 12/29/12 0:41:00, Stop date: 12/29/12 0:41:00 Dilaudid 2013-0 No Spencer 2 mg, 1 Magdaleno pilo 8-31 [facility] [place] mL, Route: l 05:41: IV, Drug Bryson 00 form: INJ, ONCE, Dosing Weight 54.545, kg, Start date: 12/29/12 0:41:00, Stop date: 12/29/12 0:41:00 Dilaudid 2012-0 No Spencer 2 mg, 1 Magdaleno pilo 8-31 [facility] [place] mL, Route: l 05:41: IV, Drug Bryson 00 form: INJ, ONCE, Dosing Weight 54.545, kg, Start date: 12/29/12 0:41:00, Stop date: 12/29/12 0:41:00 Dilaudid 2012-0 No Spencer 1 mg, 0.5 Me moria 8-31 [facility] [place] mL, Route: l 04:19: IV, Drug Dawn 00 form: INJ, ONCE, Dosing Weight 54.545, kg, Start date: 12/28/12 23:19:00, Stop date: 12/28/12 23:19:00 Dilaudid 0 No Spencer 1 mg, 0.5 Me moria 8-31 [facility] [place] mL, Route: l 04:19: IV, Drug Bryson 00 form: INJ, ONCE, Dosing Weight 54.545, kg, Start date: 12/28/12 23:19:00, Stop date: 12/28/12 23:19:00 Dilaudid 0 No Spencer 1 mg, 0.5 Me moria 8-31 [facility] [place] mL, Route: l 04:19: IV, Drug Bryson 00 form: INJ, ONCE, Dosing Weight 54.545, kg, Start date: 12/28/12 23:19:00, Stop date: 12/28/12 23:19:00 Dilaudid 2012-0 No Spencer 1 mg, 0.5 Me moria 8-31 [facility] [place] mL, Route: l 04:19: IV, Drug Bryson 00 form: INJ, ONCE, Dosing Weight 54.545, kg, Start date: 12/28/12 23:19:00, Stop date: 12/28/12 23:19:00 Dilaudid 2012-0 No Spencer 1 mg, 0.5 Me moria 8-31 [facility] [place] mL, Route: l 04:19: IV, Drug Dawn 00 form: INJ, ONCE, Dosing Weight 54.545, kg, Start date: 12/28/12 23:19:00, Stop date: 12/28/12 23:19:00 Dilaudid 2012-0 No Spencer 1 mg, 0.5 Me moria 8-31 [facility] [place] mL, Route: l 04:19: IV, Drug Bryson 00 form: INJ, ONCE, Dosing Weight 54.545, kg, Start date: 12/28/12 23:19:00, Stop date: 12/28/12 23:19:00 Dilaudid 2012-0 No Spencer 1 mg, 0.5 Me moria 8-31 [facility] [place] mL, Route: l 04:19: IV, Drug Bryson 00 form: INJ, ONCE, Dosing Weight 54.545, kg, Start date: 12/28/12 23:19:00, Stop date: 12/28/12 23:19:00 Dilaudid 0 No Spencer 1 mg, 0.5 Me moria 8-31 [facility] [place] mL, Route: l 04:19: IV, Drug Bryson 00 form: INJ, ONCE, Dosing Weight 54.545, kg, Start date: 12/28/12 23:19:00, Stop date: 12/28/12 23:19:00 Dilaudid 0 No Spencer 1 mg, 0.5 Me moria 8-31 [facility] [place] mL, Route: l 04:19: IV, Drug Dawn 00 form: INJ, ONCE, Dosing Weight 54.545, kg, Start date: 12/28/12 23:19:00, Stop date: 12/28/12 23:19:00 Dilaudid 2012-0 No Spencer 1 mg, 0.5 Me moria 8-31 [facility] [place] mL, Route: l 04:19: IV, Drug Bryson 00 form: INJ, ONCE, Dosing Weight 54.545, kg, Start date: 12/28/12 23:19:00, Stop date: 12/28/12 23:19:00 Sodium 2012-0 No Spencer IV, 1000 Memor ia Chloride 8-31 [place] ml/hr, l 0.9% IV 03:30: Q1H, Start Herm date: 12/28/12 22:30:00, Duration: 2, 1,000 ml Sodium 2013-0 No Spencer IV, 1000 Memor ia Chloride 8-31 [place] ml/hr, l 0.9% IV 03:30: Q1H, Start Herm date: 12/28/12 22:30:00, Duration: 2, 1,000 ml Sodium 2013-0 No Spencer IV, 1000 Memor ia Chloride 8-31 [place] ml/hr, l 0.9% IV 03:30: Q1H, Start Herm date: 12/28/12 22:30:00, Duration: 2, 1,000 ml Sodium 2013-0 No Spencer IV, 1000 Memor ia Chloride 8-31 [place] ml/hr, l 0.9% IV 03:30: Q1H, Start Herm date: 12/28/12 22:30:00, Duration: 2, 1,000 ml Sodium 2013-0 No Spencer IV, 1000 Memor ia Chloride 8-31 [place] ml/hr, l 0.9% IV 03:30: Q1H, Start Herm date: 12/28/12 22:30:00, Duration: 2, 1,000 ml Sodium 2013-0 No Spencer IV, 1000 Memor ia Chloride 8-31 [place] ml/hr, l 0.9% IV 03:30: Q1H, Start Herm date: 12/28/12 22:30:00, Duration: 2, 1,000 ml Sodium 2013-0 No Spencer IV, 1000 Memor ia Chloride 8-31 [place] ml/hr, l 0.9% IV 03:30: Q1H, Start Herm date: 12/28/12 22:30:00, Duration: 2, 1,000 ml Sodium 2013-0 No Spencre IV, 1000 Memor ia Chloride 8-31 [place] ml/hr, l 0.9% IV 03:30: Q1H, Start Herm date: 12/28/12 22:30:00, Duration: 2, 1,000 ml Sodium 2012-0 No Spencer IV, 1000 Memor ia Chloride 8-31 [place] ml/hr, l 0.9% IV 03:30: Q1H, Start Herm boaz date: 12/28/12 22:30:00, Duration: 2, 1,000 ml Sodium 2012-0 No Spencer IV, 1000 Memor ia Chloride 8-31 [place] ml/hr, l 0.9% IV 03:30: Q1H, Start Herm boaz date: 12/28/12 22:30:00, Duration: 2, 1,000 ml morphine 2012-0 No Spencer 4 mg, Memori a Sulfate 8-31 [facility] [place] Route: l 03:14: IVP, Drug Dawn 00 form: INJ, ONCE, Dosing Weight 54.545, kg, Priority: STAT, Start date: 12/28/12 22:14:00, Stop date: 12/28/12 22:14:00 morphine 2012-0 No Spencer 4 mg, Memori a Sulfate 8-31 [facility] [place] Route: l 03:14: IVP, Drug Dawn 00 form: INJ, ONCE, Dosing Weight 54.545, kg, Priority: STAT, Start date: 12/28/12 22:14:00, Stop date: 12/28/12 22:14:00 morphine 2012-0 No Spencer 4 mg, Memori a Sulfate 8-31 [facility] [place] Route: l 03:14: IVP, Drug Bryson 00 form: INJ, ONCE, Dosing Weight 54.545, kg, Priority: STAT, Start date: 12/28/12 22:14:00, Stop date: 12/28/12 22:14:00 morphine 2012-0 No Spencer 4 mg, Memori a Sulfate 8-31 [facility] [place] Route: l 03:14: IVP, Drug Dawn 00 form: INJ, ONCE, Dosing Weight 54.545, kg, Priority: STAT, Start date: 12/28/12 22:14:00, Stop date: 12/28/12 22:14:00 morphine 2012-0 No Spencer 4 mg, Memori a Sulfate 8-31 [facility] [place] Route: l 03:14: IVP, Drug Dawn 00 form: INJ, ONCE, Dosing Weight 54.545, kg, Priority: STAT, Start date: 12/28/12 22:14:00, Stop date: 12/28/12 22:14:00 morphine 2012-0 No Sepncer 4 mg, Memori a Sulfate 8-31 [facility] [place] Route: l 03:14: IVP, Drug Bryson 00 form: INJ, ONCE, Dosing Weight 54.545, kg, Priority: STAT, Start date: 12/28/12 22:14:00, Stop date: 12/28/12 22:14:00 morphine 2012-0 No Spencer 4 mg, Memori a Sulfate 8-31 [facility] [place] Route: l 03:14: IVP, Drug Dawn 00 form: INJ, ONCE, Dosing Weight 54.545, kg, Priority: STAT, Start date: 12/28/12 22:14:00, Stop date: 12/28/12 22:14:00 morphine 2012-0 No Spencer 4 mg, Memori a Sulfate 8-31 [facility] [place] Route: l 03:14: IVP, Drug Dawn 00 form: INJ, ONCE, Dosing Weight 54.545, kg, Priority: STAT, Start date: 12/28/12 22:14:00, Stop date: 12/28/12 22:14:00 morphine 2012-0 No Spencer 4 mg, Memori a Sulfate 8-31 [facility] [place] Route: l 03:14: IVP, Drug Dawn 00 form: INJ, ONCE, Dosing Weight 54.545, kg, Priority: STAT, Start date: 12/28/12 22:14:00, Stop date: 12/28/12 22:14:00 morphine 2012-0 No Spencer 4 mg, Memori a Sulfate 8-31 [facility] [place] Route: l 03:14: IVP, Drug Dawn 00 form: INJ, ONCE, Dosing Weight 54.545, kg, Priority: STAT, Start date: 12/28/12 22:14:00, Stop date: 12/28/12 22:14:00 NS 2000 mL 2012-0 No Spencer 2,000 mL, Memoria 8-31 [facility] [place] Rate: l 02:58: 2,000 Bryson 00 ml/hr, Infuse over: 1 hr, Route: IV, Dosing Weight 54.545 kg, Total Volume: 2,000, Start date: 12/28/12 21:58:00, Duration: 1 doses or times, Stop date: 12/28/12 22:57:00, Bolus DoseBolus Dose NS 2000 mL 2012-0 No Spencer 2,000 mL, Memoria 8-31 [facility] [place] Rate: l 02:58: 2,000 Dawn 00 ml/hr, Infuse over: 1 hr, Route: IV, Dosing Weight 54.545 kg, Total Volume: 2,000, Start date: 12/28/12 21:58:00, Duration: 1 doses or times, Stop date: 12/28/12 22:57:00, Bolus DoseBolus Dose NS 2000 mL 2012-0 No Spencer 2,000 mL, Memoria 8-31 [facility] [place] Rate: l 02:58: 2,000 Bryson 00 ml/hr, Infuse over: 1 hr, Route: IV, Dosing Weight 54.545 kg, Total Volume: 2,000, Start date: 12/28/12 21:58:00, Duration: 1 doses or times, Stop date: 12/28/12 22:57:00, Bolus DoseBolus Dose NS 2000 mL 2012-0 No Spencer 2,000 mL, Memoria 8-31 [facility] [place] Rate: l 02:58: 2,000 Dawn 00 ml/hr, Infuse over: 1 hr, Route: IV, Dosing Weight 54.545 kg, Total Volume: 2,000, Start date: 12/28/12 21:58:00, Duration: 1 doses or times, Stop date: 12/28/12 22:57:00, Bolus DoseBolus Dose NS 2000 mL 2012-0 No Spencer 2,000 mL, Memoria 8-31 [facility] [place] Rate: l 02:58: 2,000 Dawn 00 ml/hr, Infuse over: 1 hr, Route: IV, Dosing Weight 54.545 kg, Total Volume: 2,000, Start date: 12/28/12 21:58:00, Duration: 1 doses or times, Stop date: 12/28/12 22:57:00, Bolus DoseBolus Dose NS 2000 mL 2012-0 No Spencer 2,000 mL, Memoria 8-31 [facility] [place] Rate: l 02:58: 2,000 Dawn 00 ml/hr, Infuse over: 1 hr, Route: IV, Dosing Weight 54.545 kg, Total Volume: 2,000, Start date: 12/28/12 21:58:00, Duration: 1 doses or times, Stop date: 12/28/12 22:57:00, Bolus DoseBolus Dose NS 2000 mL 2012-0 No Spencer 2,000 mL, Memoria 8-31 [facility] [place] Rate: l 02:58: 2,000 Bryson 00 ml/hr, Infuse over: 1 hr, Route: IV, Dosing Weight 54.545 kg, Total Volume: 2,000, Start date: 12/28/12 21:58:00, Duration: 1 doses or times, Stop date: 12/28/12 22:57:00, Bolus DoseBolus Dose NS 2000 mL 2012-0 No Spencer 2,000 mL, Memoria 8-31 [facility] [place] Rate: l 02:58: 2,000 Dawn 00 ml/hr, Infuse over: 1 hr, Route: IV, Dosing Weight 54.545 kg, Total Volume: 2,000, Start date: 12/28/12 21:58:00, Duration: 1 doses or times, Stop date: 12/28/12 22:57:00, Bolus DoseBolus Dose NS 2000 mL 2012-0 No Spencer 2,000 mL, Memoria 8-31 [facility] [place] Rate: l 02:58: 2,000 Dawn 00 ml/hr, Infuse over: 1 hr, Route: IV, Dosing Weight 54.545 kg, Total Volume: 2,000, Start date: 12/28/12 21:58:00, Duration: 1 doses or times, Stop date: 12/28/12 22:57:00, Bolus DoseBolus Dose NS 2000 mL 2012-0 No Spencer 2,000 mL, Memoria 8-31 [facility] [place] Rate: l 02:58: 2,000 Dawn 00 ml/hr, Infuse over: 1 hr, Route: IV, Dosing Weight 54.545 kg, Total Volume: 2,000, Start date: 12/28/12 21:58:00, Duration: 1 doses or times, Stop date: 12/28/12 22:57:00, Bolus DoseBolus Dose Visipaque No Spencer 63 mL, Magdaleno pilo 320mg/ml 8-31 [facility] [place] Route: l 01:59: IVP, Drug Dawn Form: SOLN, kg, ONCALL, STAT, Start date: 12/28/12 20:59:00, Duration: 1 doses or times, Weight = 40 - 59kg -- "To be infused by Radiology Staff ONLY"Weigh t = 40 - 59kg -- "To be infused by Radiology Staff ONLY" Visipaque No Spencer 63 mL, Magdaleno pilo 320mg/ml 8-31 [facility] Route: l 01:59: IVP, Drug Dawn Form: SOLN, kg, ONCALL, STAT, Start date: 12/28/12 20:59:00, Duration: 1 doses or times, Weight = 40 - 59kg -- "To be infused by Radiology Staff ONLY"Weigh t = 40 - 59kg -- "To be infused by Radiology Staff ONLY" Visipaque No Spencer 63 mL, Magdaleno pilo 320mg/ml 8-31 [facility] [place] Route: l 01:59: IVP, Drug Dawn Form: SOLN, kg, ONCALL, STAT, Start date: 12/28/12 20:59:00, Duration: 1 doses or times, Weight = 40 - 59kg -- "To be infused by Radiology Staff ONLY"Weigh t = 40 - 59kg -- "To be infused by Radiology Staff ONLY" Visipaque No Spencer 63 mL, Magdaleno pilo 320mg/ml 8-31 [facility] [place] Route: l 01:59: IVP, Drug Bryson Form: SOLN, kg, ONCALL, STAT, Start date: 12/28/12 20:59:00, Duration: 1 doses or times, Weight = 40 - 59kg -- "To be infused by Radiology Staff ONLY"Weigh t = 40 - 59kg -- "To be infused by Radiology Staff ONLY" Visipaque No Spencer 63 mL, Magdaleno pilo 320mg/ml 8-31 [facility] [place] Route: l 01:59: IVP, Drug Bryson Form: SOLN, kg, ONCALL, STAT, Start date: 12/28/12 20:59:00, Duration: 1 doses or times, Weight = 40 - 59kg -- "To be infused by Radiology Staff ONLY"Weigh t = 40 - 59kg -- "To be infused by Radiology Staff ONLY" Visipaque No Spencer 63 mL, Magdaleno pilo 320mg/ml 8-31 [facility] [place] Route: l 01:59: IVP, Drug Bryson Form: SOLN, kg, ONCALL, STAT, Start date: 12/28/12 20:59:00, Duration: 1 doses or times, Weight = 40 - 59kg -- "To be infused by Radiology Staff ONLY"Weigh t = 40 - 59kg -- "To be infused by Radiology Staff ONLY" Visipaque No Spencer 63 mL, Magdaleno pilo 320mg/ml 8-31 [facility] [place] Route: l 01:59: IVP, Drug Dawn Form: SOLN, kg, ONCALL, STAT, Start date: 12/28/12 20:59:00, Duration: 1 doses or times, Weight = 40 - 59kg -- "To be infused by Radiology Staff ONLY"Weigh t = 40 - 59kg -- "To be infused by Radiology Staff ONLY" Visipaque No Spencer 63 mL, Magdaleno pilo 320mg/ml 8-31 [facility] [place] Route: l 01:59: IVP, Drug Bryson Form: SOLN, kg, ONCALL, STAT, Start date: 12/28/12 20:59:00, Duration: 1 doses or times, Weight = 40 - 59kg -- "To be infused by Radiology Staff ONLY"Weigh t = 40 - 59kg -- "To be infused by Radiology Staff ONLY" Visipaque No Spencer 63 mL, Magdaleno pilo 320mg/ml 8-31 [facility] [place] Route: l 01:59: IVP, Drug Bryson Form: SOLN, kg, ONCALL, STAT, Start date: 12/28/12 20:59:00, Duration: 1 doses or times, Weight = 40 - 59kg -- "To be infused by Radiology Staff ONLY"Weigh t = 40 - 59kg -- "To be infused by Radiology Staff ONLY" Visipaque No Spencer 63 mL, Magdaleno pilo 320mg/ml 12-29 [facility] [place] Route: l 01:59: IVP, Drug Dawn 00 Form: SOLN, kg, ONCALL, STAT, Start date: 12/28/12 20:59:00, Duration: 1 doses or times, Weight = 40 - 59kg -- "To be infused by Radiology Staff ONLY"Weigh t = 40 - 59kg -- "To be infused by Radiology Staff ONLY" morphine No Spencer 4 mg, 1 Magdaleno pilo Sulfate 12-29 [facility] [place] mL, Route: l 01:56: IVP, Drug Bryson form: INJ, ONCE, kg, Priority: STAT, Start date: 12/28/12 20:56:00, Stop date: 12/28/12 20:56:00 ondansetron No Spencer 4 mg, 2 M emoria 12-29 [facility] [place] mL, Route: l 01:56: IVP, Drug Dawn 00 form: INJ, ONCE, kg, Priority: STAT, Start date: 12/28/12 20:56:00, Stop date: 12/28/12 20:56:00 Saline No Spencer 5 ml, Memoria Flush 0.9% 12-29 Philip [place] Route: l 01:56: IVP, Drug Bryson 00 Form: INJ, kg, PRN, PRN Line Flush, Administer at least once every 12 hours, Start date: 12/28/12 20:56:00, Duration: 30 day, Stop date: 01/27/13 20:55:00 morphine No Spencer 4 mg, 1 Magdaleno pilo Sulfate 12-29 Philip [place] mL, Route: l 01:56: IVP, Drug Dawn form: INJ, ONCE, kg, Priority: STAT, Start date: 12/28/12 20:56:00, Stop date: 12/28/12 20:56:00 ondansetron No Spencer 4 mg, 2 M emoria -31 Philip [place] mL, Route: l 01:56: IVP, Drug Dawn 00 form: INJ, ONCE, kg, Priority: STAT, Start date: 12/28/12 20:56:00, Stop date: 12/28/12 20:56:00 Saline 2012-0 No Spencer 5 ml, Memoria Flush 0.9% 8-31 Philip [place] Route: l 01:56: IVP, Drug Bryson 00 Form: INJ, kg, PRN, PRN Line Flush, Administer at least once every 12 hours, Start date: 12/28/12 20:56:00, Duration: 30 day, Stop date: 01/27/13 20:55:00 morphine 2012-0 No Spencer 4 mg, 1 Magdaleno pilo Sulfate 8-31 Philip [place] mL, Route: l 01:56: IVP, Drug Dawn form: INJ, ONCE, kg, Priority: STAT, Start date: 12/28/12 20:56:00, Stop date: 12/28/12 20:56:00 ondansetron 2012-0 No Spencer 4 mg, 2 M emoria 8-31 Philip [place] mL, Route: l 01:56: IVP, Drug Bryson form: INJ, ONCE, kg, Priority: STAT, Start date: 12/28/12 20:56:00, Stop date: 12/28/12 20:56:00 Saline 2012-0 No Spencer 5 ml, Memoria Flush 0.9% 8-31 Philip [place] Route: l 01:56: IVP, Drug Bryson Form: INJ, kg, PRN, PRN Line Flush, Administer at least once every 12 hours, Start date: 12/28/12 20:56:00, Duration: 30 day, Stop date: 01/27/13 20:55:00 morphine 2012-0 No Spencer 4 mg, 1 Magdaleno pilo Sulfate 8-31 Philip [place] mL, Route: l 01:56: IVP, Drug Bryson form: INJ, ONCE, kg, Priority: STAT, Start date: 12/28/12 20:56:00, Stop date: 12/28/12 20:56:00 ondansetron 2012-0 No Spencer 4 mg, 2 M emoria 8-31 Philip [place] mL, Route: l 01:56: IVP, Drug Bryson 00 form: INJ, ONCE, kg, Priority: STAT, Start date: 12/28/12 20:56:00, Stop date: 12/28/12 20:56:00 Saline 2012-0 No Spencer 5 ml, Memoria Flush 0.9% 8-31 Philip [place] Route: l 01:56: IVP, Drug Dawn 00 Form: INJ, kg, PRN, PRN Line Flush, Administer at least once every 12 hours, Start date: 12/28/12 20:56:00, Duration: 30 day, Stop date: 01/27/13 20:55:00 morphine 2012-0 No Spencer 4 mg, 1 Magdaleno pilo Sulfate 8-31 Philip [place] mL, Route: l 01:56: IVP, Drug Bryson 00 form: INJ, ONCE, kg, Priority: STAT, Start date: 12/28/12 20:56:00, Stop date: 12/28/12 20:56:00 ondansetron 2012-0 No Spencer 4 mg, 2 M emoria 8-31 Philip [place] mL, Route: l 01:56: IVP, Drug Bryson form: INJ, ONCE, kg, Priority: STAT, Start date: 12/28/12 20:56:00, Stop date: 12/28/12 20:56:00 Saline 2012-0 No Spencer 5 ml, Memoria Flush 0.9% 8-31 Philip [place] Route: l 01:56: IVP, Drug Dawn Form: INJ, kg, PRN, PRN Line Flush, Administer at least once every 12 hours, Start date: 12/28/12 20:56:00, Duration: 30 day, Stop date: 01/27/13 20:55:00 morphine 2012-0 No Spencer 4 mg, 1 Magdaleno iplo Sulfate 8-31 Philip [place] mL, Route: l 01:56: IVP, Drug Dawn 00 form: INJ, ONCE, kg, Priority: STAT, Start date: 12/28/12 20:56:00, Stop date: 12/28/12 20:56:00 ondansetron 2012-0 No Spencer 4 mg, 2 M emoria 8-31 Philip [place] mL, Route: l 01:56: IVP, Drug Bryson 00 form: INJ, ONCE, kg, Priority: STAT, Start date: 12/28/12 20:56:00, Stop date: 12/28/12 20:56:00 Saline 2012-0 No Spencer 5 ml, Memoria Flush 0.9% 8-31 Philip [place] Route: l 01:56: IVP, Drug Bryson Form: INJ, kg, PRN, PRN Line Flush, Administer at least once every 12 hours, Start date: 12/28/12 20:56:00, Duration: 30 day, Stop date: 01/27/13 20:55:00 morphine 2012-0 No Spencer 4 mg, 1 Magdaleno pilo Sulfate 8-31 Philip [place] mL, Route: l 01:56: IVP, Drug Bryson 00 form: INJ, ONCE, kg, Priority: STAT, Start date: 12/28/12 20:56:00, Stop date: 12/28/12 20:56:00 ondansetron 2012-0 No Spencer 4 mg, 2 M emoria 8-31 Philip [place] mL, Route: l 01:56: IVP, Drug Dawn 00 form: INJ, ONCE, kg, Priority: STAT, Start date: 12/28/12 20:56:00, Stop date: 12/28/12 20:56:00 Saline 2012-0 No Spencer 5 ml, Memoria Flush 0.9% 8-31 Philip [place] Route: l 01:56: IVP, Drug Dawn 00 Form: INJ, kg, PRN, PRN Line Flush, Administer at least once every 12 hours, Start date: 12/28/12 20:56:00, Duration: 30 day, Stop date: 01/27/13 20:55:00 morphine 2012-0 No Spencer 4 mg, 1 Magdaleno pilo Sulfate 8-31 Philip [place] mL, Route: l 01:56: IVP, Drug Bryson 00 form: INJ, ONCE, kg, Priority: STAT, Start date: 12/28/12 20:56:00, Stop date: 12/28/12 20:56:00 ondansetron 2012-0 No Spencer 4 mg, 2 M emoria 8-31 Philip [place] mL, Route: l 01:56: IVP, Drug Bryson 00 form: INJ, ONCE, kg, Priority: STAT, Start date: 12/28/12 20:56:00, Stop date: 12/28/12 20:56:00 Saline 2012-0 No Spencer 5 ml, Memoria Flush 0.9% 8-31 Philip [place] Route: l 01:56: IVP, Drug Dawn Form: INJ, kg, PRN, PRN Line Flush, Administer at least once every 12 hours, Start date: 12/28/12 20:56:00, Duration: 30 day, Stop date: 01/27/13 20:55:00 morphine 2012-0 No Spencer 4 mg, 1 Magdaleno pilo Sulfate 8-31 Philip [place] mL, Route: l 01:56: IVP, Drug Bryson 00 form: INJ, ONCE, kg, Priority: STAT, Start date: 12/28/12 20:56:00, Stop date: 12/28/12 20:56:00 ondansetron 2012-0 No Spencer 4 mg, 2 M emoria 8-31 Philip [place] mL, Route: l 01:56: IVP, Drug Dawn 00 form: INJ, ONCE, kg, Priority: STAT, Start date: 12/28/12 20:56:00, Stop date: 12/28/12 20:56:00 Saline 2012-0 No Spencer 5 ml, Memoria Flush 0.9% 8-31 Philip [place] Route: l 01:56: IVP, Drug Dawn 00 Form: INJ, kg, PRN, PRN Line Flush, Administer at least once every 12 hours, Start date: 12/28/12 20:56:00, Duration: 30 day, Stop date: 01/27/13 20:55:00 morphine 2012-0 No Spencer 4 mg, 1 Magdaleno pilo Sulfate 8-31 Philip [place] mL, Route: l 01:56: IVP, Drug Dawn form: INJ, ONCE, kg, Priority: STAT, Start date: 12/28/12 20:56:00, Stop date: 12/28/12 20:56:00 ondansetron 2012-0 No Spencer 4 mg, 2 M emoria 12-29 Philip [place] mL, Route: l 01:56: IVP, Drug Bryson 00 form: INJ, ONCE, kg, Priority: STAT, Start date: 12/28/12 20:56:00, Stop date: 12/28/12 20:56:00 Saline 2013-0 No Spencer 5 ml, Memoria Flush 0.9% 12-29 Philip [place] Route: l 01:56: IVP, Drug Bryson 00 Form: INJ, kg, PRN, PRN Line Flush, Administer at least once every 12 hours, Start date: 12/28/12 20:56:00, Duration: 30 day, Stop date: 01/27/13 20:55:00 Vital Signs Vital Name Observation Time Observation Value Comments Source Systolic blood 2021-05-30 118 mm[Hg] [facility] pressure 08:21:00 [facility] Diastolic blood 2021-05-30 79 mm[Hg] [facility] 08:21:00 [facility] Heart rate 2021-05-30 91 /min [facility] 08:21:00 [facility] Body temperature 2021-05-30 36.83 Sarah Beth [facility] 08:21:00 [facility] Respiratory rate 2021-05-30 20 /min [facility] 08:21:00 [facility] Body weight 2021-05-30 56.7 kg [facility] 08:21:00 [facility] BMI 2021-05-30 18.46 kg/m2 [facility] 08:21:00 [facility] Oxygen saturation 2021-05-30 100 /min [facility] in Arterial blood 08:21:00 [facility] by Pulse oximetry [place] Systolic blood 2022-04-28 128 mm[Hg] [facility] pressure 01:20:01 [facility] Diastolic blood 2022-04-28 75 mm[Hg] [facility] pressure 01:20: [facility] Heart rate 2022-04-28 78 /min [facility] 01:20: [facility] Body temperature 2022-04-28 36.22 Sarah Beth [facility] 01:20:01 [facility] Respiratory rate 2022-04-28 17 /min [facility] 01:20:01 [facility] Oxygen saturation 2022-04-28 98 /min [facility] in Arterial blood 01:20:01 [facility] by Pulse oximetry Body height 2022-04-27 175.3 cm [facility] 22:09:00 [facility] Body weight 2022-04-27 63.504 kg [facility] 22:09:00 [facility] BMI 2022-04-27 20.67 kg/m2 [facility] 22:09:00 [facility] Systolic blood 2022-03-29 120 mm[Hg] [facility] pressure 16:21:00 Diastolic blood 2022-03-29 87 mm[Hg] [facility] h pressure 16:21:00 Heart rate 2022-03-29 98 /min [facility] 16:21:00 Body temperature 2022-03-29 36.28 Sarah Beth [facility] 16:21:00 Respiratory rate 2022-03-29 17 /min [facility] 16:21:00 Oxygen saturation 2022-03-29 99 /[facility] Ar[facility] 16:21:00 by Pulse oximetry Systolic blood 2022-03-10 105 mm[Hg] [facility] pressure 22:00:00 Diastolic blood 2022-03-10 76 mm[Hg] [facility] pressure 22:00:00 Heart rate 2022-03-10 64 /min [facility] 22:00:00 Respiratory rate 2022-03-10 18 /min [facility] 22:00:00 Oxygen saturation 2022-03-10 99 /min [facility] in Arterial blood 22:00:00 by Pulse oximetry Body temperature 2022-03-10 36.67 Sarah Beth [facility] 19:29:00 Body height 2022-03-10 175.3 cm [facility] 05:39:00 Body weight 2022-03-10 58.968 kg [facility] 05:39:00 BMI 2022-03-10 19.20 kg/m2 [facility] 05:39:00 Systolic blood 2022-03-09 120 mm[Hg] [facility] pressure 22:42:22 [facility] Diastolic blood 2022-03-09 79 mm[Hg] [facility] 22:42:22 [facility] Heart rate 2022-03-09 73 /min [facility] 22:42:22 [facility] Body temperature 2022-03-09 36.89 Sarah Beth [facility] 22:42:22 [facility] Respiratory rate 2022-03-09 20 /min [facility] 22:42:22 [facility] Oxygen saturation 2022-03-09 96 /min [facility] in Arterial blood 22:42:22 [facility] by Pulse oximetry Body height 2022-03-09 172.7 cm [facility] 22:40:00 Hospital Body weight 2022-03-09 62.596 kg [facility] 22:40:00 Hospital BMI 2022-03-09 20.98 kg/m2 [facility] 22:40:00 [facility] Systolic blood 2022-02-04 108 mm[Hg] [facility] pressure 23:16:00 Diastolic blood 2022-02-04 71 mm[Hg] [facility] pressure 23:16:00 Heart rate 2022-02-04 59 /min Notify RN Jaz[facility] 23:16:00 Body temperature 2022-02-04 36.56 Sarah Beth [facility] 23:16:00 Respiratory rate 2022-02-04 19 /min [facility] 23:16:00 Oxygen saturation 2022-02-04 100 /min [facility] in Arterial blood 23:16:00 by Pulse oximetry Body height 2022-02-04 175.3 cm [facility] 09:28:00 Body weight 2022-02-04 65.8 kg [facility] 09:28:00 BMI 2022-02-04 21.42 kg/m2 [facility] 09:28:00 Systolic blood 2022-01-13 122 mm[Hg] [facility] pressure 02:14:00 [facility] Diastolic blood 2022-01-13 84 mm[Hg] [facility] pressure 02:14:00 [facility] Heart rate 2022-01-13 79 /min [facility] 02:14:00 [facility] Body temperature 2022-01-13 36.56 Sarah Beth [facility] 02:14:00 [facility] Respiratory rate 2022-01-13 16 /min [facility] 02:14:00 Hospital Oxygen saturation 2022-01-13 95 /min [facility] in Arterial blood 02:14:00 Hospital by Pulse oximetry Systolic (mm Hg) 2019-12-15 [facility] rmann 06:24:00 Diastolic (mm Hg) 2019-12-15 [facility] ermann 06:24:00 Respitory Rate 2019-12-15 [facility] boaz 06:24:00 Temperature Oral 2019-12-15 99 F [facility] rmann (F) 06:24:00 Respitory Rate 2019-12-15 [facility] boza 06:03:00 Respitory Rate 2019-12-15 [facility] boaz 04:44:00 Systolic (mm Hg) 2019-12-15 [facility] 04:44:00 Diastolic (mm Hg) 2019-12-15 [facility] 04:44:00 Systolic (mm Hg) 2019-12-15 [facility] 04:25:00 Diastolic (mm Hg) 2019-12-15 [facility] 04:25:00 Heart Rate 2019-12-15 Jennifer Jenkinsan n 04:25:00 Temperature Oral 2019-12-15 99.7 F [facility] rmann (F) 04:25:00 Systolic (mm Hg) 2018-04-18 [facility] 16:28:00 Diastolic (mm Hg) 2018-04-18 [facility] 16:28:00 Respitory Rate 2018-04-18 [facility] boaz 16:28:00 Temperature Oral 2018-04-18 98.0 F [facility] rmann (F) 16:28:00 Systolic (mm Hg) 2018-04-18 [...] Herm boaz 11:55:00 Height 2018-04-18 172.72 cm Jennifer Jenkinsan n 11:55:00 Temperature Oral 2018-04-18 98.2 F Jennifer Quintanilla rmann (F) 11:55:00 Heart Rate 2018-04-18 [facility] n 11:55:00 Heart Rate 2018-04-14 [facility] 14:00:00 Temperature Oral 2018-04-14 97.5 F [facility] r[facility] (F) 14:00:00 Systolic (mm Hg) 2018-04-14 [facility] 14:00:00 Diastolic (mm Hg) 2018-04-14 [facility] 14:00:00 Heart Rate 2018-04-14 [facility]iz n 10:00:00 Systolic (mm Hg) 2018-04-14 [facility] rmann 10:00:00 Diastolic (mm Hg) 2018-04-14 [facility] [...] n 16:18:00 Temperature Oral 2012-12-30 97 F [facility] (F) 16:18:00 Respitory Rate 2012-12-30 Jennifer Jenkins boaz 16:18:00 Diastolic (mm Hg) 2012-12-30 Jennifer Jaramillo ermann 16:18:00 Systolic (mm Hg) 2012-12-30 Jennifer Quintanilla rmann 16:18:00 Height 2012-12-29 175.26 cm Jennifer Freed n 02:00:00 Weight 2012-12-29 Jennifer Freed n 02:00:00 Procedures Procedure Date / Time Performing Clinician Source Performed RESPIRATORY PATHOGEN 2022-04-27 23:32:00 [facility] PANEL WITH COVID-19 [facility] RT-PCR INFLUENZA ANTIGEN 2022-04-27 23:32:00 [facility] GROUP A STREP, RAPID 2022-04-27 23:32:00 [facility] ANTIGEN [facility] STREP SCREEN CULTURE 2022-04-27 23:32:00 [facility] XR NECK SOFT TISSUE 2022-04-27 23:09:45 [facility] XR CHEST 2 VW 2022-04-27 23:09:20 [facility] 2022-03-14 06:16:00 Holly Jarrell [...] lth CREATININE POC 2022-03-10 11:47:00 [facility] SARS-COV-2, FLU A/B, RSV 2022-03-10 11:35:00 [facility] CORONAVIRUS, COVID-19, 2022-03-10 11:35:00 [facility] PORTIA CBC WITH PLATELET AND 2022-03-09 23:22:00 [facility] DIFFERENTIAL BASIC METABOLIC PANEL 2022-03-09 23:22:00 [facility] ACETAMINOPHEN LEVEL 2022-03-09 23:22:00 [facility] SALICYLATE LEVEL 2022-03-09 23:22:00 [facility] ESTIMATED GFR 2022-03-09 23:22:00 [facility] XRAY CHEST 1 VIEW - TB 2022-03-05 05:15:14 Apple Gan [facility] SCREEN (AFFLIATE) SARS-COV-2 PCR RAPID TEST 2022-03-05 00:00:00 Provider, [facility] Med POC GLUCOSE-AFFILIATE 2022-03-05 00:00:00 Provider, [facility] MANUALLY ENTERED Med POC GLUCOSE-AFFILIATE 2022-02-28 00:00:00 Provider, [facility] MANUALLY ENTERED Med CONSULT CLINICAL CASE 2022-02-04 12:29:21 [facility] MANAGEMENT (RN/SW) XRAY FOOT 3 VIEWS MIN 2022-02-04 10:59:00 [facility] XRAY ANKLE 3 VIEW MIN 2022-02-04 10:59:00 [facility] URINE CULTURE 2022-01-13 05:32:00 Rehreswapnil [facility] URINE DRUGS OF ABUSE 2022-01-13 05:32:00 RehUmang howardh [facility] SCREEN URINALYSIS SCREEN AND 2022-01-13 05:32[facility]00 [facility] MICROSCOPY, WITH REFLEX TO CULTURE COVID-19 QUALITATIVE 2022-01-13 03:52:00 Rehrer, [facility] RT-PCR COVID-19 OMICRON VARIANT 2022-01-13 03:52:00 Rehrer, [facility] QUALITATIVE RT-PCR CBC WITH PLATELET AND 2022-01-13 03:52:00 Rehrer, [facility] DIFFERENTIAL COMPREHENSIVE METABOLIC 2022-01-13 03:52:00 Rehrer, [facility] PANEL THYROID STIMULATING 2022-01-13 03:52:00 Rehrer, [facility] HORMONE T4, FREE 2022-01-13 03:52:00 Rehrer, [facility] ALCOHOL LEVEL, BLOOD 2022-01-13 03:52:00 Rehrer, [facility] ACETAMINOPHEN LEVEL 2022-01-13 03:52:00 Rehrer, [facility] SALICYLATE LEVEL 2022-01-13 03:52:00 Rehrer, [facility] ESTIMATED GFR 2022-01-13 03:52:00 Rehrer, [facility] ECG ED PRELIMINARY 2022-01-13 02:35:02 Rehrer, [facility] INTERPRETATION CONSULT CLINICAL CASE 2022-01-12 20:09:34 [facility] MANAGEMENT (RN/SW) ACETAMINOPHEN 2022-01-12 12:37:00 Inocencia Lozano [facility] 12 LEAD EKG 2022-01-12 11:30:22 Inocencia Lozano [facility] CONSENT/REFUSAL FOR 2021-05-30 08:08:34 Doctor Unassigned, [facility] DIAGNOSIS AND TREAT[facility] Planned Activity Planned Date Details Comments Source Future Scheduled 2022-06-19 COVID-19 VACCINE (#1) [facility] Test 02:52:36 [code = COVID-19 VACCINE (#1)] Future Scheduled 2022-06-19 Pneumococcal Vaccine: [facility] Test 02:52:36 Pediatrics (0 to 5 Years) and At-Risk Patients (6 to 64 Years) (1 - PCV) [code = Pneumococcal Vaccine: Pediatrics (0 to 5 Years) and At-Risk Patients (6 to 64 Years) (1 - PCV)] Future Scheduled 2022-06-19 [facility] Test 02:52:36 (procedure) [code = [id number]] Future Scheduled 2022-06-19 INFLUENZA VACCINE [facility] Test 02:52:36 [code = INFLUENZA VACCINE] Future Scheduled 2022-06-19 COVID-19 VACCINE (#1) [facility] Test 02:52:36 [code = COVID-19 VACCINE (#1)] Future Scheduled 2022-06-19 Pneumococcal Vaccine: [facility] Test 02:52:36 Pediatrics (0 to 5 Years) and At-Risk Patients (6 to 64 Years) (1 - PCV) [code = Pneumococcal Vaccine: Pediatrics (0 to 5 Years) and At-Risk Patients (6 to 64 Years) (1 - PCV)] Future Scheduled 2022-06-19 Hepatitis C screening [facility] Test 02:52:36 (procedure) [code = 758397115] Future Scheduled 2022-06-19 [facility]ZA VACCINE [facility] Test 02:52:36 [code = INFLUENZA VACCINE] Future Scheduled 2022-06-19 COVID-19 VACCINE (#1) [facility] Test 02:52:36 [code = COVID-19 VACCINE (#1)] Future Scheduled 2022-06-19 Pneumococcal Vaccine: [facility] Test 02:52:36 Pediatrics (0 to 5 Years) and At-Risk Patients (6 to 64 Years) (1 - PCV) [code = Pneumococcal Vaccine: Pediatrics (0 to 5 Years) and At-Risk Patients (6 to 64 Years) (1 - PCV)] Future Scheduled 2022-06-19 Hepatitis C screening [facility] Test 02:52:36 (procedure) [code = [id number]] Future Scheduled 2022-06-19 INFLUENZA VACCINE [facility] Test 02:52:36 [code = INFLUENZA VACCINE] Future Scheduled 2022-06-19 COVID-19 VACCINE (#1) [facility] Test 02:52:36 [code = COVID-19 VACCINE (#1)] Future Scheduled 2022-06-19 Pneumococcal Vaccine: [facility] Test 02:52:36 Pediatrics (0 to 5 Years) and At-Risk Patients (6 to 64 Years) (1 - PCV) [code = Pneumococcal Vaccine: Pediatrics (0 to 5 Years) and At-Risk Patients (6 to 64 Years) (1 - PCV)] Future Scheduled 2022-06-19 [facility] Test 02:52:36 (procedure) [code = [id number]] Future Scheduled 2022-06-19 INFLUENZA VACCINE [facility] Test 02:52:36 [code = INFLUENZA VACCINE] Future Scheduled 2022-06-07 COVID-19 VACCINE (#1) [facility] Test 13:13:57 [code = COVID-19 VACCINE (#1)] Future Scheduled 2022-06-07 Pneumococcal Vaccine: [facility] Test 13:13:57 Pediatrics (0 to 5 Years) and At-Risk Patients (6 to 64 Years) (1 - PCV) [code = Pneumococcal Vaccine: Pediatrics (0 to 5 Years) and At-Risk Patients (6 to 64 Years) (1 - PCV)] Future Scheduled 2022-06-07 [facility] Test 13:13:57 (procedure) [code = [id number]] Future Scheduled 2022-06-07 INFLUENZA VACCINE [facility] Test 13:13:57 [code = INFLUENZA VACCINE] Future Scheduled 2022-04-29 COVID-19 VACCINE (#1) [facility] Test 14:17:11 [code = COVID-19 VACCINE (#1)] Future Scheduled 2022-04-29 Pneumococcal Vaccine: [facility] Test 14:17:11 Pediatrics (0 to 5 Years) and At-Risk Patients (6 to 64 Years) (1 - PCV) [code = Pneumococcal Vaccine: Pediatrics (0 to 5 Years) and At-Risk Patients (6 to 64 Years) (1 - PCV)] Future Scheduled 2022-04-29 [facility] Test 14:17:11 (procedure) [code = [id number]] Future Scheduled 2022-04-29 INFLUENZA VACCINE [facility] Test 14:17:11 [code = INFLUENZA VACCINE] Future Scheduled 2022-04-14 COVID-19 VACCINE (#1) [facility] Test 22:41:37 [code = COVID-19 VACCINE (#1)] Future Scheduled 2022-04-14 [facility] 22:41:37 Pediatrics (0 to 5 Years) and At-Risk Patients (6 to 64 Years) (1 - PCV) [code = Pneumococcal Vaccine: Pediatrics (0 to 5 Years) and At-Risk Patients (6 to 64 Years) (1 - PCV)] Future Scheduled 2022-04-14 Hepatitis C screening [facility] Test 22:41:37 (procedure) [code = [id number]] Future Scheduled 2022-04-14 [facility]ZA VACCINE [facility] Test 22:41:37 [code = INFLUENZA VACCINE] Future Scheduled 2022-03-09 HEPATITIS B VACCINES [facility] Test 19:41:41 (1 of 3 - 3-dose series) [code = HEPATITIS B VACCINES (1 of 3 - 3-dose series)] Future Scheduled 2022-03-09 COVID-19 VACCINE (#1) [facility] Test 19:41:41 [code = COVID-19 VACCINE (#1)] Future Scheduled 2022-03-09 Pneumococcal Vaccine: [facility] Test 19:41:41 Pediatrics (0 to 5 Years) and At-Risk Patients (6 to 64 Years) (1 - PCV) [code = Pneumococcal Vaccine: Pediatrics (0 to 5 Years) and At-Risk Patients (6 to 64 Years) (1 - PCV)] Future Scheduled 2022-03-09 Hepatitis C screening [facility] Test 19:41:41 (procedure) [code = [id number]] Future Scheduled 2022-03-[address] [facility] Test 19:41:41 [code = INFLUENZA VACCINE] [...] Future Scheduled 2022-01-29 IMM Influenza Seasonal [facility] Test 00:00:00 (>/= 19 yrs) [code = IMM Influenza Seasonal (>/= 19 yrs)] Future Scheduled 2022-01-29 IMM Influenza Seasonal H [facility] Test 00:00:00 (>/= 19 yrs) [code = IMM Influenza Seasonal (>/= 19 yrs)] Future Scheduled 2022-01-13 HEPATITIS B VACCINES Met [facility] Test 01:43:47 (1 of 3 - 3-dose series) [code = HEPATITIS B VACCINES (1 of 3 - 3-dose series)] Future Scheduled 2022-01-13 COVID-19 VACCINE (#1) [facility] Test 01:43:47 [code = COVID-19 VACCINE (#1)] Future Scheduled 2022-01-13 Pneumococcal Vaccine: [facility] Test 01:43:47 Pediatrics (0 to 5 Years) and At-Risk Patients (6 to 64 Years) (1 - PCV) [code = Pneumococcal Vaccine: Pediatrics (0 to 5 Years) and At-Risk Patients (6 to 64 Years) (1 - PCV)] Future Scheduled 2022-01-13 Hepatitis C screening [facility] Test 01:43:47 (procedure) [code = [id number]] Future Scheduled 2022-01-13 [facility]ZA VACCINE [facility] Test 01:43:47 [code = INFLUENZA VACCINE] Future Scheduled 2022-01-13 HEPATITIS B VACCINES Met [facility] Test 01:43:47 (1 of 3 - 3-dose series) [code = HEPATITIS B VACCINES (1 of 3 - 3-dose series)] Future Scheduled 2022-01-13 COVID-19 VACCINE (#1) [facility] Test 01:43:47 [code = COVID-19 VACCINE (#1)] Future Scheduled 2022-01-13 Pneumococcal Vaccine: [facility] Test 01:43:47 Pediatrics (0 to 5 Years) and At-Risk Patients (6 to 64 Years) (1 - PCV) [code = Pneumococcal Vaccine: Pediatrics (0 to 5 Years) and At-Risk Patients (6 to 64 Years) (1 - PCV)] Future Scheduled 2022-01-13 Hepatitis C screening [facility] Test 01:43:47 (procedure) [code = 664346003] Future Scheduled 2022-01-13 [facility] 01:43:47 [code = INFLUENZA VACCINE] [...] Department ID 2022-04-27 2022-04-27 Emergency Karl, 1.2.840.1 [id number] Methodi 16:41:00 19:24:[address] [place] 3.430.2.7 Hospit a .3.061568 l .8 2022-04-27 2022-04-27 Emergency Karl, 1.2.840.1 [id number] Methodi 16:41:00 19:24:00 Lisbeth [address]482[address]1.[address] [facility] [address] 3.430.2.7 Hospit a .3.576182 l .8 2022-03-30 2022-03-30 Outpatient YANG, [facility] [id number] [place] 00:00:00 00:00:00 [facility] 2022-03-10 2022-03-[address] [id number] [place] 22:17:00 15:10:00 Encounter [facility] 2022-03-10 2022-03-10 Emergency 1 Emre Acuna [facility] [id number] [place] 06:16:00 22:11:00 Kelly Lacy [facility] 2022-03-09 2022-03-09 Emergency Yang, 1.2.840.1 [id number] 2099 [id number] Methodi 16:47:00 20:21:00 Lamar 52933.1.1 821 [facility] 3.430.2.7 Ho spita .3.392305 l .8 2022-03-09 2022-03-09 Emergency Yang, 1.2.840.1 [id number] 2099 [id number] Methodi 16:47:00 20:21:00 Lamar 84957.1.1 [facility]21 [facility] 3.430.2.7 Ho spita .3.214998 l .8 2022-02-24 2022-02-24 Outpatient [facility] [id number] [address] [place] [address] 00:00:00 00:00:00 [facility] 2022-02-04 2022-02-05 Emergency Karen Barrett [facility] [id number] [place] 23:51:00 00:17:00 RobinRenatan [facility] 2022-02-04 2022-02-04 Emergency [facility] [id number] [place] 10:18:51 10:59:41 [facility] 2022-01-12 2022-01-13 Emergency Rehrer, 1.2.840.1 [id number] 2099 [id number] Methodi 21:16:00 06:04:00 Diom[address] 3.430.2.7 Hospit a .3.980378 l .8 2022-01-12 2022-01-13 Emergency Rehrer, 1.2.840.1 [id number] 2099 [id number] Methodi 21:16:00 06:04:00 Dio [address]21[address]1.[address] 3.430.2.7 Hospit a .3.240505 l .8 2022-01-12 2022-01-12 Emergency [facility] [id number] [place] 20:08:00 22:12:00 Cely Mendez 2022-01-12 2022-01-12 Travel 1.2.840.1 1.2.990.683 [id number] Methodi 00:00:00 00:00:[address] 3.430.2.7 0.2.7.3.698 Ho spita .3.921868 084.8 l .8 2022-01-12 2022-01-12 Travel 1.2.840.1 1.2.791.777 2547 [id number] Methodi 00:00:00 00:00:[address] 3.430.2.7 0.2.7.3.698 Ho spita .3.182148 084.8 l .8 2021-12-30 2021-12-30 Emergency Emergency Richard, [facility] [id number] [facility] 00:14:00 00:14:00 Thompson 92 2021-12-30 2021-12-30 Emergency [facility] [id number] [facility] 00:14:00 00:14:00 92 2021-12-29 2021-12-29 Emergency 1.2.840.1 [id number] 2099 [id number] Methodi 00:27:00 01:06:[address] 3.430.2.7 Hospit a .3.126813 l .8 2021-12-29 2021-12-29 Emergency 1.2.840.1 [id number] 2099 [id number] Methodi 00:27:00 01:06:[address] 3.430.2.7 Hospit a .3.691910 l .8 2021-12-29 2021-12-29 Travel 1.2.840.1 1.2.432.996 6962 [id number] Methodi 00:00:00 00:00:[address] 3.430.2.7 0.2.7.3.698 Ho spita .3.492458 084.8 l .8 2021-12-29 2021-12-29 Travel 1.2.840.1 1.2.626.892 9741 [id number] Methodi 00:00:00 00:00:[address] 3.430.2.7 0.2.7.3.698 Ho spita .3.223343 084.8 l .8 2021-05-30 2021-05-30 Emergency Celestetuan [facility] 1.2.714.580 [id number] Univers 02:35:00 02:50:00 [place] Conrad [place] 350.1.13.10 ashlie [facility] 4.2.7.2.686 [facility] [id number] [facility] [address] 2021-05-30 2021-05-30 Emergency X EDE, [facility] ERT [id number] Univers 02:35:00 02:50:00 WAKILI ity of [facility] 2021-05-30 2021-05-30 Orders Doctor MERINO 1.2.840.114 [id number] Univers 00:00:00 00:00:00 Only Unassigned, [place] 350.1.13.10 [place] [facility] 4.2.7.2.686 Ward as [phone] [facility] [address] 2021-05-30 2021-05-30 Letter WILBER Harris 1.2.403.170 [id number] Univers 00:00:00 00:00:00 (Out) Roshan ARAMIS 350.1.13.10 it y of [facility] 4.2.7.2.686 Ward as [id number] [facility] [address] 2019-12-15 2019-12-15 Emergency nullFlavo [facility] [id number] Memoria 04:20:04 08:22:00 swapnil Massey [address] [place] [address] 2019-12-15 2019-12-15 Emergency nullFlavo [facility] [id number] Memoria 04:20:04 08:22:00 swapnil Massey [address] [place] [address] 2019-12-14 2019-12-15 Outpatient Carmen [facility] [id number] 23:20:04 03:22:00 Elio Sweeney [facility] 2019-12-14 2019-12-15 Emergency E CARMEN [facility] 7508 Memoria 23:20:00 03:22:00 ELIO Schneider [facility] 2018-04-18 2018-04-18 Emergency nullFlavo [facility] [id number] Memoria 11:54:00 16:31:00 swapnil Massey [address] [place] [address] 2018-04-18 2018-04-18 Emergency nullFlavo [facility] 64556 [id number] Memoria 11:54:00 16:31:00 swapnil Massey [address] [place] [address] 2018-04-18 2018-04-18 Outpatient Shawna [facility] [id number] 05:54:00 10:31:00 Sb Echeverria 2018-04-12 2018-04-14 Inpatient nullFlavo [facility] [id number] Memoria 21:46:00 21:30:00 r Bryson 06 [facility] 2018-04-12 2018-04-14 Inpatient nullFlavo [facility] [id number] Memoria 21:46:00 21:30:00 r Bryson 06 l [facility] 2018-04-12 2018-04-14 Outpatient Mena [facility] [id number] 15:46:00 15:30:00 Eddie Wilber Rodriguez 2016-05-01 2016-05-01 Emergency nullFlavo [facility] [id number] Memoria 01:27:00 07:00:00 swapnil Massey 05 [facility] 2016-05-01 2016-05-01 Emergency nullFlavo [facility] [id number] Memoria 01:27:00 07:00:00 swapnil Delgado [facility] 2016-04-30 2016-05-01 Outpatient Sherley [place] [id number] 19:27:00 01:00:00 Hiram Delgado 2016-04-30 2016-04-30 Emergency nullFlavo [facility] [id number] Memoria 10:30:00 13:04:00 swapnil Massey 04 [facility] 2016-04-30 2016-04-30 Emergency nullFlavo [facility] [id number] Memoria 10:30:00 13:04:00 swapnil Gale [facility] 2016-04-30 2016-04-30 Outpatient Heide [place] [id number] 04:30:00 07:04:00 Santana 2016-04-07 2016-04-07 Emergency nullFlavo [facility] [id number] Memoria 01:26:00 16:46:00 r Bryson [facility] 2016-04-07 2016-04-07 Emergency nullFlavo [facility] [id number] Memoria 01:26:00 16:46:00 r Bryson peace [facility] 2016-04-06 2016-04-07 Outpatient Constantino [facility] [id number] 19:26:00 10:46:00 Mirta andre 2016-01-14 2016-01-14 Emergency nullFlavo [facility] [id number] Memoria 02:11:00 08:00:00 r Bryson [facility] 2016-01-14 2016-01-14 Emergency nullFlavo [facility] [id number] Memoria 02:11:00 08:00:00 r Dawn [facility] 2016-01-13 2016-01-14 Outpatient Jacob [facility] [id number] 21:11:00 03:00:00 Noemi Shi 2012-12-29 2012-12-30 Inpatient nullFlavo [facility] [id number] Memoria 04:32:00 21:30:00 r Medical 00 [facility] 2012-12-29 2012-12-30 Inpatient nullFlavo [facility] [id number] Memoria 04:32:00 21:30:00 r Medical 00 [facility] Results Test Description Test Time Test Comments Results Result Comments Source Strep screen culture 2022-04-30 07:18:00 Test Item Value Reference Range Interpretation Comme nts Strep screen culture No beta hemolytic Sp ecimen InformationSpecimen isolate (test code = Streptococci isolated Source: ThroatSpecimen Site: Not 547-0) otherwise [facility]i [facility]ied [facility] [id number] 07:18:00 Test Item Value Reference Range Interpretation Comments Strep screen No beta hemolytic Specimen culture Streptococci InformationSpec imen isolate (test isolated Source: Throat Specimen code = 547-0) Site: Not othe rwise specified [facility] [id number] 07:18:00 Test Item Value Reference Range Interpretation Comments Strep screen No beta hemolytic Specimen culture Streptococci InformationSpec imen isolate (test isolated Source: Throat Specimen code = 547-0) Site: Not othe rwise specified [facility] [id number] 07:18:00 Test Item Value Reference Range Interpretation Comments Strep screen No beta hemolytic Specimen culture Streptococci InformationSpec imen isolate (test isolated Source: Throat Specimen code = 547-0) Site: Not othe rwise specified [facility] [id number] 07:18:00 Test Item Value Reference Range Interpretation Comments Strep screen No beta hemolytic Specimen culture Streptococci InformationSpec imen isolate (test isolated Source: Throat Specimen code = 547-0) Site: Not othe rwise specified [facility] [id number] 07:18:00 Test Item Value Reference Range Interpretation Comments Strep screen No beta hemolytic Specimen culture Streptococci InformationSpec imen isolate (test isolated Source: Throat Specimen code = 547-0) Site: Not othe rwise specified [facility] [id number] 09:23:21 Test Item Value Reference Range Interpretation Comments RPR Ser Ql (test code = 25565-0) NON-REACTIVE Non-reactive HHSHIV 1+2 Ab+HIV1 p24 Ag SerPl Ql [id number] 08:57:46 Test Item Value Reference Range Interpretation Comments HIV 1+2 Ab+HIV1 p24 Ag SerPl Ql IA NEGATIVE Negative (test code = 52085-7) HHSCoronavirus, CoVID-19, [id number] 13:03:17 Test Item Value Reference Interpretation Comments Range COVID-19 Not Detected Not Detected INTERPRETATION: (SARS-COV-2) (test No detect able code = 68147-0) levels of SARS-CoV-2 Coronavirus (COVID-19) were present [...] its performance characteristics were verified by the [facility] molecular diagnostics laboratory and is authorized for clinical diagnostic use. This laboratory is certified under the Clinical Laboratory Improvement Amendments (CLIA) as qualified to perform high complexity clinical laboratory testing. Lab Interpretation Normal (test code = 32863-3) [facility], CoVID-19, [id number] 13:03:17 Test Item Value Reference Interpretation Comments Range COVID-19 Not Detected Not Detected INTERPRETATION: (SARS-COV-2) (test No detect able code = 96480-9) levels of SARS-CoV-2 Coronavirus (COVID-19) were present [...] its performance characteristics were verified by the [facility] molecular diagnostics laboratory and is authorized for clinical diagnostic use. This laboratory is certified under the Clinical Laboratory Improvement Amendments (CLIA) as qualified to perform high complexity clinical laboratory testing. Lab Interpretation Normal (test code = 26586-8) [facility], [id number] 13:03:17 Test Item Value Reference Interpretation Comments Range COVID-19 Not Detected Not Detected INTERPRETATION: (SARS-COV-2) (test No detect able code = 51289-4) levels of SARS-CoV-2 Coronavirus (COVID-19) were present [...] its performance characteristics were verified by the [facility] molecular diagnostics laboratory and is authorized for clinical diagnostic use. This laboratory is certified under the Clinical Laboratory Improvement Amendments (CLIA) as qualified to perform high complexity clinical laboratory testing. Lab Interpretation Normal (test code = 79786-6) [facility], CoVID-19, [id number] 13:03:17 Test Item Value Reference Interpretation Comments Range COVID-19 Not Detected Not Detected INTERPRETATION: (SARS-COV-2) (test No detect able code = 38251-1) levels of SARS-CoV-2 Coronavirus (COVID-19) were present [...] its performance characteristics were verified by the [facility] molecular diagnostics laboratory and is authorized for clinical diagnostic use. This laboratory is certified under the Clinical Laboratory Improvement Amendments (CLIA) as qualified to perform high complexity clinical laboratory testing. Lab Interpretation Normal (test code = 20480-8) [facility]-CoV-2 RNA Resp Ql [id number]+[id number] 13:03:17 Test Item Value Reference Range Interpretation Comments Hospitalized? (test No code = 92510-4) ICU? (test code = No 18965-7) Symptomatic as defined No by CDC? (test code = 85367-9) Employed in No Healthcare? (test code = 66955-1) Resident in a Yes congregate care setting (including nursing homes, residential care for people with intellectual and developmental disabilities, psychiatric treatment facilities, group homes, board and care homes, homeless snf, foster care or other): (test code = 76478-0) SARS-CoV-2 RNA Resp Ql NOT DETECTED Not Detected INTER PRETATION: No PORTIA+probe (test code = detec table levels 63253-6) of SARS-CoV-2 Coronavirus (COVID-19) were present in [...] its performance characteristics were verified by the [facility] molecular diagnostics laboratory and is authorized for clinical diagnostic use. This laboratory is certified under the Clinical Laboratory Improvement Amendments (CLIA) as qualified to perform high complexity clinical laboratory testing.HHSPOCT BMP POC docked [id number] 11:49:51 Test Item Value Reference Range Interpretation Comments Sodium POC (test code = 140 mmol/L 136-145 65617062) Potassium POC (test code 4.0 mmol/L 3.5-5.1 = 58355046) Chloride POC (test code 104 mmol/L 98-107 = 69059872) TCO2 POC (test code = 28 mmol/L -32 Physic shea Notified 48648927) Urea Nitrogen POC (test 19 mg/dL 7-18 H code = 19654936) Glucose POC (test code = 79 mg/dL 74-106 64016722) Hemoglobin POC (test 13.9 g/dL 12-16 code = 63932843) Hematocrit POC (test 41.0 % 37.0-47.0 code = 77841078) Lab Interpretation (test Abnormal code = 27535-3) formerly [facility] CREATININE POC docked [id number] 11:49:51 Test Item Value Reference Range Interpretation Comments Creatinine POC (test 1.0 mg/dL 0.6-1.3 Physici an Notified code = 77455088) eGFR If non- Am 98 See_Comment [Aut omated message] (test code = 45184851) The s ystem which generated this result transmit abdelrahman reference range : >=90 mL/min/1.7 3 m2. The reference r annemarie was not used to interpret this result as normal/abnormal . eGFR If Am (test 114 See_Comment [A utomated message] code = 91151369) The system which generated this result transmit abdelrahman reference range : >=90 mL/min/1.7 3 m2. The reference r annemarie was not used to interpret this result as normal/abnormal . Lab Interpretation (test Normal code = 89111-5) formerly [facility] BMP POC docked [id number] 11:49:51 Test Item Value Reference Range Interpretation Comments Sodium POC (test code = 140 mmol/L 136-145 19653516) Potassium POC (test code 4.0 mmol/L 3.5-5.1 = 38829065) Chloride POC (test code 104 mmol/L 98-107 = 81967100) TCO2 POC (test code = 28 mmol/L -32 Physic shea Notified 71303994) Urea Nitrogen POC (test 19 mg/dL 7-18 H code = 29905334) Glucose POC (test code = 79 mg/dL 74-106 75071613) Hemoglobin POC (test 13.9 g/dL 12-16 code = 89339645) Hematocrit POC (test 41.0 % 37.0-47.0 code = 44194456) Lab Interpretation (test Abnormal code = 89318-3) formerly [facility] CREATININE POC docked [id number] 11:49:51 Test Item Value Reference Range Interpretation Comments Creatinine POC (test 1.0 mg/dL 0.6-1.3 Physici an Notified code = 73745482) eGFR If non- Am 98 See_Comment [Aut omated message] (test code = 88324292) The s ystem which generated this result transmit abdelrahman reference range : >=90 mL/min/1.7 3 m2. The reference r annemarie was not used to interpret this result as normal/abnormal . eGFR If Am (test 114 See_Comment [A utomated message] code = 53056630) The system which generated this result transmit abdelrahman reference range : >=90 mL/min/1.7 3 m2. The reference r annemarie was not used to interpret this result as normal/abnormal . Lab Interpretation (test Normal code = 77408-2) formerly [facility] BMP POC docked [id number] 11:49:51 Test Item Value Reference Range Interpretation Comments Sodium POC (test code = 140 mmol/L 136-145 15024035) Potassium POC (test code 4.0 mmol/L 3.5-5.1 = 35255119) Chloride POC (test code 104 mmol/L 98-107 = 98933631) TCO2 POC (test code = 28 mmol/L 21-32 Physic shea Notified 46450839) Urea Nitrogen POC (test 19 mg/dL 7-18 H code = 88605884) Glucose POC (test code = 79 mg/dL 74-106 92085606) Hemoglobin POC (test 13.9 g/dL 12-16 code = 69763908) Hematocrit POC (test 41.0 % 37.0-47.0 code = 71194583) Lab Interpretation (test Abnormal code = 78580-3) formerly [facility] CREATININE POC docked [id number] 11:49:51 Test Item Value Reference Range Interpretation Comments Creatinine POC (test 1.0 mg/dL 0.6-1.3 Physici an Notified code = 64922285) eGFR (test code = 98 See_Comment [Automate d message] 00788931) The system [employer] generated this result transmit abdelrahman reference range : >=90 mL/min/1.7 3 m2. The reference r annemarie was not used to interpret this result as normal/abnormal . eGFR If Am (test 114 See_Comment [A utomated message] code = 89974847) The system which generated this result transmit abdelrahman reference range : >=90 mL/min/1.7 3 m2. The reference r annemarie was not used to interpret this result as normal/abnormal . Lab Interpretation (test Normal code = 34106-6) formerly [facility] BMP POC docked [id number] 11:49:51 Test Item Value Reference Range Interpretation Comments Sodium POC (test code = 140 mmol/L 136-145 28382927) Potassium POC (test code 4.0 mmol/L 3.5-5.1 = 84059285) Chloride POC (test code 104 mmol/L 98-107 = 58223534) TCO2 POC (test code = 28 mmol/L 21-32 Physic shea Notified 62135501) Urea Nitrogen POC (test 19 mg/dL 7-18 H code = 62580933) Glucose POC (test code = 79 mg/dL 74-106 02527772) Hemoglobin POC (test 13.9 g/dL 12-16 code = 47627690) Hematocrit POC (test 41.0 % 37.0-47.0 code = 11453122) Lab Interpretation (test Abnormal code = 87600-2) formerly [facility] CREATININE POC docked [id number] 11:49:51 Test Item Value Reference Range Interpretation Comments Creatinine POC (test 1.0 mg/dL 0.6-1.3 Physici an Notified code = 96411181) eGFR (test code = 98 See_Comment [Automate d message] 16990029) The system [employer] generated this result transmit abdelrahman reference range : >=90 mL/min/1.7 3 m2. The reference r annemarie was not used to interpret this result as normal/abnormal . eGFR If Am (test 114 See_Comment [A utomated message] code = 29864537) The system which generated this result transmit abdelrahman reference range : >=90 mL/min/1.7 3 m2. The reference r annemarie was not used to interpret this result as normal/abnormal . Lab Interpretation (test Normal code = 53597-3) [facility]2022-09-15 06:41:00 Test Item Value Reference Range Interpretation Comments Urine culture (test SEE COMMENT Bacteriu pilo screen code = 3152299) negative. [facility]2022-09-15 06:41:00 Test Item Value Reference Range Interpretation Comments Urine culture (test SEE COMMENT Bacteriu pilo screen code = 5588347) negative. [facility]2022-09-15 06:41:00 Test Item Value Reference Range Interpretation Comments Urine culture (test SEE COMMENT Bacteriu pilo screen code = 9725378) negative. [facility]2022-09-15 06:41:00 Test Item Value Reference Range Interpretation Comments Urine culture (test SEE COMMENT Bacteriu pilo screen code = 2595946) negative. [facility]2022-09-15 06:41:00 Test Item Value Reference Range Interpretation Comments Urine culture (test SEE COMMENT Bacteriu pilo screen code = 3641048) negative. [facility]2022-09-15 06:41:00 Test Item Value Reference Range Interpretation Comments Urine culture (test SEE COMMENT Bacteriu pilo screen code = 8158341) negative. [facility]2022-09-15 06:41:00 Test Item Value Reference Range Interpretation Comments Urine culture (test SEE COMMENT Bacteriu pilo screen code = 3630903) negative. [facility]2022-09-15 06:41:00 Test Item Value Reference Range Interpretation Comments Urine culture (test SEE COMMENT Bacteriu pilo screen code = 0405220) negative. [facility]2022-09-15 06:41:00 Test Item Value Reference Range Interpretation Comments Urine culture (test SEE COMMENT Bacteriu pilo screen code = 4663479) negative. [facility]2022-09-15 06:41:00 Test Item Value Reference Range Interpretation Comments Urine culture (test SEE COMMENT Bacteriu pilo screen code = 8008404) negative. [facility] ED Preliminary Interpretation - Not an [id number] 02:35:02 Test Item Value Reference Range Interpretation Comments LISA (test code = LISA) Dio Boswell DO 01/16/2022 11:06 [facility] ED Preliminary Interpretation - Not an OrderPerformed by: Dio Boswell DOAuthorized by: Dio Boswell DO ECG reviewed by ED Physician in the absence of a filleter: yes Previous ECG: Previous ECG: UnavailableInterpretat ion: Interpretation: abnormal Rate: ECG rate: 60 ECG rate assessment: normal Rhythm: Rhythm: sinus rhythm Ectopy: Ectopy: none QRS: QRS axis: Normal QRS intervals: NormalConduction: Conduction: abnormal Abnormal conduction: incomplete RBBB ST segments: ST segments: NormalT waves: T waves: normal Lab Interpretation Abnormal (test code = 66921-4) [facility] ED Preliminary Interpretation - Not an [id number] 02:35:02 Test Item Value Reference Range Interpretation Comments LISA (test code = LISA) Dio Boswell DO 01/16/2022 11:06 [facility] ED Preliminary Interpretation - Not an OrderPerformed by: Dio Boswell DOAuthorized by: Dio Boswell DO ECG reviewed by ED Physician in the absence of a filleter: yes Previous ECG: Previous ECG: UnavailableInterpretat ion: Interpretation: abnormal Rate: ECG rate: 60 ECG rate assessment: normal Rhythm: Rhythm: sinus rhythm Ectopy: Ectopy: none QRS: QRS axis: Normal QRS intervals: NormalConduction: Conduction: abnormal Abnormal conduction: incomplete RBBB ST segments: ST segments: NormalT waves: T waves: normal Lab Interpretation Abnormal (test code = 03840-8) [facility] ED Preliminary Interpretation - Not an [id number] 02:35:02 Test Item Value Reference Range Interpretation Comments LISA (test code = LISA) Dio Boswell DO 01/16/2022 11:06 [facility] ED Preliminary Interpretation - Not an OrderPerformed by: Dio Boswell DOAuthorized by: Dio Boswell DO ECG reviewed by ED Physician in the absence of a filleter: yes Previous ECG: Previous ECG: UnavailableInterpretat ion: Interpretation: abnormal Rate: ECG rate: 60 ECG rate assessment: normal Rhythm: Rhythm: sinus rhythm Ectopy: Ectopy: none QRS: QRS axis: Normal QRS intervals: NormalConduction: Conduction: abnormal Abnormal conduction: incomplete RBBB ST segments: ST segments: NormalT waves: T waves: normal Lab Interpretation Abnormal (test code = 24207-0) [facility] ED Preliminary Interpretation - Not an [id number] 02:35:02 Test Item Value Reference Range Interpretation Comments LISA (test code = LISA) Dio Boswell DO 01/16/2022 11:06 [facility] ED Preliminary Interpretation - Not an OrderPerformed by: Dio Boswell, DOAuthorized by: Dio Boswell DO ECG reviewed by ED Physician in the absence of a filleter: yes Previous ECG: Previous ECG: UnavailableInterpretat ion: Interpretation: abnormal Rate: ECG rate: 60 ECG rate assessment: normal Rhythm: Rhythm: sinus rhythm Ectopy: Ectopy: none QRS: QRS axis: Normal QRS intervals: NormalConduction: Conduction: abnormal Abnormal conduction: incomplete RBBB ST segments: ST segments: NormalT waves: T waves: normal Lab Interpretation Abnormal (test code = 05799-7) [facility] ED Preliminary Interpretation - Not an [id number] 02:35:02 Test Item Value Reference Range Interpretation Comments LISA (test code = LISA) Dio Boswell DO 01/16/2022 11:06 [facility] ED Preliminary Interpretation - Not an OrderPerformed by: Dio Boswell, DOAuthorized by: Dio Boswell DO ECG reviewed by ED Physician in the absence of a filleter: yes Previous ECG: Previous ECG: UnavailableInterpretat ion: Interpretation: abnormal Rate: ECG rate: 60 ECG rate assessment: normal Rhythm: Rhythm: sinus rhythm Ectopy: Ectopy: none QRS: QRS axis: Normal QRS intervals: NormalConduction: Conduction: abnormal Abnormal conduction: incomplete RBBB ST segments: ST segments: NormalT waves: T waves: normal Lab Interpretation Abnormal (test code = 31694-6) [facility] ED Preliminary Interpretation - Not an [id number] 02:35:02 Test Item Value Reference Range Interpretation Comments LISA (test code = LISA) Dio Boswell DO 01/16/2022 11:06 [facility] ED Preliminary Interpretation - Not an OrderPerformed by: Dio Boswell DOAuthorized by: Dio Boswell DO ECG reviewed by ED Physician in the absence of a filleter: yes Previous ECG: Previous ECG: UnavailableInterpretat ion: Interpretation: abnormal Rate: ECG rate: 60 ECG rate assessment: normal Rhythm: Rhythm: sinus rhythm Ectopy: Ectopy: none QRS: QRS axis: Normal QRS intervals: NormalConduction: Conduction: abnormal Abnormal conduction: incomplete RBBB ST segments: ST segments: NormalT waves: T waves: normal Lab Interpretation Abnormal (test code = 93669-8) [facility] ED Preliminary Interpretation - Not an [id number] 02:35:02 Test Item Value Reference Range Interpretation Comments LISA (test code = LISA) Dio Boswell DO 01/16/2022 11:06 [facility] ED Preliminary Interpretation - Not an OrderPerformed by: Dio Boswell DOAuthorized by: Dio Boswell DO ECG reviewed by ED Physician in the absence of a filleter: yes Previous ECG: Previous ECG: UnavailableInterpretat ion: Interpretation: abnormal Rate: ECG rate: 60 ECG rate assessment: normal Rhythm: Rhythm: sinus rhythm Ectopy: Ectopy: none QRS: QRS axis: Normal QRS intervals: NormalConduction: Conduction: abnormal Abnormal conduction: incomplete RBBB ST segments: ST segments: NormalT waves: T waves: normal Lab Interpretation Abnormal (test code = 89839-3) [facility] ED Preliminary Interpretation - Not an [id number] 02:35:02 Test Item Value Reference Range Interpretation Comments LISA (test code = LISA) Dio Boswell DO 01/16/2022 11:06 [facility] ED Preliminary Interpretation - Not an OrderPerformed by: Dio Boswell DOAuthorized by: Dio Boswell DO ECG reviewed by ED Physician in the absence of a filleter: yes Previous ECG: Previous ECG: UnavailableInterpretat ion: Interpretation: abnormal Rate: ECG rate: 60 ECG rate assessment: normal Rhythm: Rhythm: sinus rhythm Ectopy: Ectopy: none QRS: QRS axis: Normal QRS intervals: NormalConduction: Conduction: abnormal Abnormal conduction: incomplete RBBB ST segments: ST segments: NormalT waves: T waves: normal Lab Interpretation Abnormal (test code = 16515-1) [facility] Preliminary Interpretation - Not an [id number] 02:35:02 Test Item Value Reference Range Interpretation Comments LISA (test code = LISA) Dio Boswell DO 01/16/2022 11:06 [facility] ED Preliminary Interpretation - Not an OrderPerformed by: Dio Boswell, DOAuthorized by: Dio Boswell DO ECG reviewed by ED Physician in the absence of a filleter: yes Previous ECG: Previous ECG: UnavailableInterpretat ion: Interpretation: abnormal Rate: ECG rate: 60 ECG rate assessment: normal Rhythm: Rhythm: sinus rhythm Ectopy: Ectopy: none QRS: QRS axis: Normal QRS intervals: NormalConduction: Conduction: abnormal Abnormal conduction: incomplete RBBB ST segments: ST segments: NormalT waves: T waves: normal Lab Interpretation Abnormal (test code = 81457-6) [facility] Preliminary Interpretation - Not an [id number] 02:35:02 Test Item Value Reference Range Interpretation Comments LISA (test code = LISA) Dio Boswell DO 01/16/2022 11:06 [facility] Preliminary Interpretation - Not an OrderPerformed by: Dio Boswell DOAuthorized by: Dio Boswell DO ECG reviewed by ED Physician in the absence of a filleter: yes Previous ECG: Previous ECG: UnavailableInterpretat ion: Interpretation: abnormal Rate: ECG rate: 60 ECG rate assessment: normal Rhythm: Rhythm: sinus rhythm Ectopy: Ectopy: none QRS: QRS axis: Normal QRS intervals: NormalConduction: Conduction: abnormal Abnormal conduction: incomplete RBBB ST segments: ST segments: NormalT waves: T waves: normal Lab Interpretation Abnormal (test code = 03881-5) [facility]Presence] in Respiratory specimen by PORTIA with probe lzcrvsmmf8893-27-37 00:36:01 Test Item Value Reference Range Interpretation Comments SARS-CoV-2 (COVID-19) RNA [Presence] Detected in Respiratory specimen by PORTIA with probe detection (test code = 78556-7) Whether patient is employed in a Unknown healthcare setting (test code = 22244-8) Whether the patient has symptoms Unknown related to condition of interest (test code = 27384-8) Whether the patient was hospitalized Unknown for condition of interest (test code = 56970-8) Whether the patient was admitted to Unknown intensive care unit (ICU) for condition of interest (test code = 72121-4) Whether patient resides in a Unknown congregate care setting (test code = 53900-1) status (test code = Unknown 13013-5) Date and time of symptom onset (test Unknown code = 59146-2) [place] [address] Lead [id number] 11:30:2212 [facility] Test Date: 9758-03-54Ywu Name: [facility] Department: 5520Patient ID: [id number] Room: Gender: M Claims Adjustor: [id number]: 1990 Requested By: INOCENCIA LOZANO Order Number: [id number] Joyce MD: Ayush Saunders MeasurementsIntervals [place] Rate: 72 P: 67PR: 141 QRS: 70QRSD: 110 T: 29QT: 397 QTc: 422 Interpretive StatementsSINUS RHYTHMINCOMPLETE RIGHT BUNDLE BRANCH BLOCK [90+ ms QRS DURATION, TERMINAL R INV1/V2,40+ ms S IN I/aVL/V4/V5/V6]POSSIBLE LATERAL MYOCARDIAL INFARCTION , PROBABLY OLD [30 ms Q WAVE INI/aVL/V5/V6]Electronically Signed On 01-14-2022 12:12:05 CDT by Ayush SaundersLauren [place] [address] Lead [id number] 11:30:2212 [facility] Test Date: 6173-64-89Tvf Name: [facility] Department: 5520Patient ID: [id number] Room: Gender: M Claims Adjustor: [id number]: 1990 Requested By: INOCENCIA LOZANO Order Number: [id number] Joyce MD: Ayush Saunders MeasurementsIntervals [place] Rate: 72 P: 67PR: 141 QRS: 70QRSD: 110 T: 29QT: 397 QTc: 422 Interpretive StatementsSINUS RHYTHMINCOMPLETE RIGHT BUNDLE BRANCH BLOCK [90+ ms QRS DURATION, TERMINAL R INV1/V2,40+ ms S IN I/aVL/V4/V5/V6]POSSIBLE LATERAL MYOCARDIAL INFARCTION , PROBABLY OLD [30 ms Q WAVE INI/aVL/V5/V6]Electronically Signed On 01-14-2022 12:12:05 CDT [facility] [id number] 11:30:2212 [facility] Test Date: 9665-11-38Rcu Name: [facility] Department: 5520Patient ID: [id number] Room: Gender: M Claims Adjustor: [id number]: 1990 Requested By: INOCENCIA LOZANO Order Number: [id number] Reading MD: Ayush Saunders MeasurementsIntervals [place] Rate: 72 P: 67PR: 141 QRS: 70QRSD: 110 T: 29QT: 397 QTc: 422 Interpretive StatementsSINUS RHYTHMINCOMPLETE RIGHT BUNDLE BRANCH BLOCK [90+ ms QRS DURATION, TERMINAL R INV1/V2,40+ ms S IN I/aVL/V4/V5/V6]POSSIBLE LATERAL MYOCARDIAL INFARCTION , PROBABLY OLD [30 ms Q WAVE INI/aVL/V5/V6]Electronically Signed On 01-14-2022 12:12:05 CDT by Ayush [place]denSarah [place] [address] Lead [id number] 11:30:2212 [facility] Test Date: 0206-21-49Mtf Name: [facility] Department: 5520Patient ID: [id number] Room: Gender: M Claims Adjustor: [id number]: 1990 Requested By: INOCENCIA LOZANO Order Number: [id number] Reading MD: Ayush Saunders MeasurementsIntervals [place] Rate: 72 P: 67PR: 141 QRS: 70QRSD: 110 T: 29QT: 397 QTc: 422 Interpretive StatementsSINUS RHYTHMINCOMPLETE RIGHT BUNDLE BRANCH BLOCK [90+ ms QRS DURATION, TERMINAL R INV1/V2,40+ ms S IN I/aVL/V4/V5/V6]POSSIBLE LATERAL MYOCARDIAL INFARCTION , PROBABLY OLD [30 ms Q WAVE INI/aVL/V5/V6]Electronically Signed On 01-14-2022 12:12:05 CDT [facility]undersSaint [facility] HospitalMeta[facility] [place] [address] Lead [id number] 11:30:2212 [facility] Test Date: 9425-85-58Aee Name: [facility] Department: 5520Patient ID: [id number] Room: Gender: M Claims Adjustor: [id number]: 1990 Requested By: INOCENCIA LOZANO Order Number: [id number] Reading MD: Ayush Saunders MeasurementsIntervals [place] Rate: 72 P: 67PR: 141 QRS: 70QRSD: 110 T: 29QT: 397 QTc: 422 Interpretive StatementsSINUS RHYTHMINCOMPLETE RIGHT BUNDLE BRANCH BLOCK [90+ ms QRS DURATION, TERMINAL R INV1/V2,40+ ms S IN I/aVL/V4/V5/V6]POSSIBLE LATERAL MYOCARDIAL INFARCTION , PROBABLY OLD [30 ms Q WAVE INI/aVL/V5/V6]Electronically Signed On 01-14-2022 12:12:05 CDT by [facility]undersSaint [facility] HospitalMeta[facility] [place] [address] [place] [id number] 11:30:2212 [facility] Test Date: 4985-29-00Yxb Name: [facility] Department: 5520Patient ID: [id number] Room: Gender: M Claims Adjustor: [id number]: 1990 Requested By: INOCENCIA LOZANO Order Number: [id number] Reading MD: Ayush Saunders MeasurementsIntervals [place] Rate: 72 P: 67PR: 141 QRS: 70QRSD: 110 T: 29QT: 397 QTc: 422 Interpretive StatementsSINUS RHYTHMINCOMPLETE RIGHT BUNDLE BRANCH BLOCK [90+ ms QRS DURATION, TERMINAL R INV1/V2,40+ ms S IN I/aVL/V4/V5/V6]POSSIBLE LATERAL MYOCARDIAL INFARCTION , PROBABLY OLD [30 ms Q WAVE INI/aVL/V5/V6]Electronically Signed On 01-14-2022 12:12:05 CDT by Ayush AguilarThe [facility] SystemCoronavirus PCR, COVID19 [id number] 00:45:00 Test Item Value Reference Range Interpretation Comments Coronavirus PCR, For use under Emergency COVID19 Rapid (test Use Authorization (EUA) code = SARSCOV2) only. Coronavirus PCR, Reference Range: COVID19 Rapid (test Negative code = XWBWYQR08.1) SARS-CoV-2 PCR Result: Positive by RT-PCR A [...] = NRBCP) 0 % UA, Urinalysis Rflx Cult/[id number] 00:45:00 Test Item Value Reference Range Interpretation Comments Color,Urine (test code = UCOL) Dark Yellow Yellow A Clarity,Urine (test code = Clear Clear UCLAR) Ph, Urine (test code = UPH) 5.0 5.0-9.0 N Specific [place],Urine (test >= 1.030 1.005-1.030 N code = [...] Negative mg/dL Negative code = ULEU) Urine [id number] 00:45:00 Test Item Value Reference Range Interpretation Comments RBC,Urine (test code = URBCUF) None Seen /HPF 0-2 WBC,Urine (test code = UWBCUF) 0-5 /HPF 0-5 Epithelial Cell,Urine (test None Seen /HPF 0-5 code = UECUF) Casts,Urine (test code = 0-5 /LPF None Seen UCASTUF) Bacteria,Urine (test code = None Seen /hpf None Seen UBACTUF) Manual Differential, [id number] 00:45:00 Test Item Value Reference Range Interpretation [...] code = Normal Morphology Normal RM) Drug Screen,[id number] 00:45:00 Test Item Value Reference Range Interpretation [...] Urine (test code = UPROP) Comprehensive Metabolic [id number] 00:45:00 Test Item Value Reference Range Interpretation [...] 44 U/L 46-116 L = ALP) Ethanol [id number] 00:45:00 Test Item Value Reference Range Interpretation Comments Ethanol (test code < 3 mg/dL The pharm acological = ETOH) response to blo od alcohol levels mayvary from individual to i ndividual. The fatal xiomara ntrationhas been reported t o be >400mg/dL. CHEM [id number] 04:57:00 Test Item Value Reference Range Interpretation Comments Glucose Lvl (test code = Glucose Lvl) 141 70-99 [facility] [id number] 04:57:00 Test Item Value Reference Range Interpretation Comments BUN (test code = BUN) 7 7-22 [facility] [id number] 04:57:00 Test Item Value Reference Range Interpretation Comments Creatinine Lvl (test code = Creatinine 1.10 0.50-1.40 Lvl) [facility] [id number] 04:57:00 Test Item Value Reference Range Interpretation Comments Sodium Lvl (test code = Sodium Lvl) 138 135-145 [facility] [id number] 04:57:00 Test Item Value Reference Range Interpretation Comments Potassium Lvl (test code = Potassium 3.1 3.5-5.1 Lvl) [place] [id number] 04:57:00 Test Item Value Reference Range Interpretation Comments Chloride Lvl (test code = Chloride Lvl) 106 95-109 [facility] [id number] 04:57:00 Test Item Value Reference Range Interpretation Comments CO2 (test code = CO2) 27 24-32 [facility] [id number] 04:57:00 Test Item Value Reference Range Interpretation Comments Calcium Lvl (test code = Calcium Lvl) 8.9 8.5-10.5 [facility] [id number] 04:57:00 Test Item Value Reference Range Interpretation Comments Albumin Lvl (test code = Albumin Lvl) 4.2 3.5-5.0 [place] [id number] 04:57:00 Test Item Value Reference Range Interpretation Comments AGAP (test code = AGAP) 8.1 10.0-20.0 [place] [address]-08-16 04:57:00 Test Item Value Reference Range Interpretation Comments B/C Ratio (test code = B/C Ratio) 6 1 6-25 [place] [address]-08-16 04:57:00 Test Item Value Reference Range Interpretation Comments eGFR (test code = eGFR) 89 [place] [address]-08-16 04:57:00 Test Item Value Reference Range Interpretation Comments Total Protein (test code = Total 7.6 6.4-8.4 Protein) [place] 758990-08-16 04:57:00 Test Item Value Reference Range Interpretation Comments ALT (test code = ALT) 23 See_Comment [Auto mated message] The system which ge nerated this result transmit abdelrahman reference range : <=65. The reference range was not used to interpr et this result as gurpreet l/abnormal. [place] [address]-08-16 04:57:00 Test Item Value Reference Range Interpretation Comments AST (test code = AST) 16 See_Comment [Auto mated message] The system which ge nerated this result transmit abdelrahman reference range : <=37. The reference range was not used to interpr et this result as gurpreet l/abnormal. [place] 758990-08-16 04:57:00 Test Item Value Reference Range Interpretation Comments Alk Phos (test code = Alk Phos) 38 39-136 [place] 758990-08-16 04:57:00 Test Item Value Reference Range Interpretation Comments Bili Total (test code = Bili Total) 0.3 0.2-1.3 [place] [address]-08-16 04:57:00 Test Item Value Reference Range Interpretation Comments Globulin (test code = Globulin) 3.4 2.7-4.2 [place] [address]-08-16 04:57:00 Test Item Value Reference Range Interpretation Comments A/G Ratio (test code = A/G Ratio) 1.2 1 0.7-1.6 [place] 632290-08-16 04:57:00 Test Item Value Reference Range Interpretation Comments WBC (test code = WBC) 9.2 3.7-10.4 [facility] HospitalFespizaZPEBTVAHEZ1592-80-40 04:57:00 Test Item Value Reference Range Interpretation Comments RBC (test code = RBC) 4.56 4.70-6.10 [facility] HospitalAkcrtogWRORSRKWJO4501-12-07 04:57:00 Test Item Value Reference Range Interpretation Comments Hgb (test code = Hgb) 13.3 14.0-18.0 [facility] HospitalAhrkoldQUBFHHMMEG4235-15-16 04:57:00 Test Item Value Reference Range Interpretation Comments Hct (test code = Hct) 39.7 42.0-54.0 [facility] HospitalKshhhqhABYHBCITXV1635-19-33 04:57:00 Test Item Value Reference Range Interpretation Comments MCV (test code = MCV) 87.0 80.0-94.0 [facility] HospitalZvhomwsITLGANZDHX7336-87-17 04:57:00 Test Item Value Reference Range Interpretation Comments MCH (test code = MCH) 29.2 pg 27.0-31.0 [facility] HospitalOgedlboLTUKCQDBVU5702-81-51 04:57:00 Test Item Value Reference Range Interpretation Comments MCHC (test code = MCHC) 33.6 32.0-36.0 [facility] HospitalWoprvscPKXDYSHHPY7330-11-18 04:57:00 Test Item Value Reference Range Interpretation Comments RDW (test code = RDW) 13.1 11.5-14.5 [facility] HospitalDlzikduXXALFFCXQB3113-66-47 04:57:00 Test Item Value Reference Range Interpretation Comments Platelet (test code = Platelet) 162 133-450 [facility] HospitalMcdigbeJUMRWOAWJO5887-41-34 04:57:00 Test Item Value Reference Range Interpretation Comments MPV (test code = MPV) 9.8 7.4-10.4 [facility] HospitalAulzirlZRGRZEENKK4895-56-08 04:57:00 Test Item Value Reference Range Interpretation Comments Segs (test code = Segs) 79.0 45.0-75.0 [facility] HospitalQkskjsiKRSLEZAYTS3195-11-57 04:57:00 Test Item Value Reference Range Interpretation Comments Lymphocytes (test code = Lymphocytes) 13.7 20.0-40.0 [facility] HospitalMvovdzjPCJXOULDUQ6945-57-68 04:57:00 Test Item Value Reference Range Interpretation Comments Monocytes (test code = Monocytes) 6.5 2.0-12.0 [facility] HospitalXbxemcoTZIRFOQZMR0833-14-17 04:57:00 Test Item Value Reference Range Interpretation Comments Eosinophils (test code = 0.5 See_Comment [A utomated message] The Eosinophils) system which ge nerated this result tra nsmitted reference range : <=4.0. The reference r annemarie was not used to int erpret this result as normal/abnormal . [facility] HospitalXkfyervAVMRDPEWSU6404-35-23 04:57:00 Test Item Value Reference Range Interpretation Comments Basophils (test code = 0.3 See_Comment [Aut omated message] The Basophils) system which ge nerated this result tra nsmitted reference range : <=1.0. The reference r annemarie was not used to int erpret this result as normal/abnormal . [facility] HospitalQxwjtpwONKNGVVSKL1282-51-39 04:57:00 Test Item Value Reference Range Interpretation Comments Neutrophils # (test code = Neutrophils 7.3 1.5-8.1 #) [facility] HospitalDipflvxPTILNEPAIA8489-48-17 04:57:00 Test Item Value Reference Range Interpretation Comments Lymphocytes # (test code = Lymphocytes 1.3 1.0-5.5 #) [facility] HospitalFaspccrCJQSWOQNOW4391-39-00 04:57:00 Test Item Value Reference Range Interpretation Comments Monocytes # (test code 0.6 See_Comment [Aut omated message] The = Monocytes #) system which generated this result tra nsmitted reference range : <=0.8. The reference r annemarie was not used to int erpret this result as normal/abnormal . [facility]OjavhsgXVDXKKTSTG1583-93-05 04:57:00 Test Item Value Reference Range Interpretation Comments Ethanol Lvl (test code = Ethanol Lvl) no gt [facility]viewEthhaewIXXTATEQUD4022-91-81 04:57:00 Test Item Value Reference Range Interpretation Comments Etoh (%) (test code = Etoh (%)) no gt [facility]viewZtlplvuDFXVLKMNBW8427-86-07 04:57:00 Test Item Value Reference Range Interpretation Comments Acetaminoph Lvl (test code (12/14/19 11:57 PM) 10-20 = Acetaminoph Lvl) [place] [id number] 04:57:00 Test Item Value Reference Range Interpretation Comments Salicylate Lvl (test 3.4 See_Comment [Autom ated message] The code = Salicylate Lvl) syste m which generated this result tra nsmitted reference range : <=30.0. The reference r annemarie was not used to int erpret this result as normal/abnormal . [facility] LQZYZ4404-27-12 04:57:00 Test Item Value Reference Range Interpretation Comments Glucose Lvl (test code = Glucose Lvl) 141 70-99 [facility] RZYQL7368-20-33 04:57:00 Test Item Value Reference Range Interpretation Comments BUN (test code = BUN) 7 7-22 [facility] [id number] 04:57:00 Test Item Value Reference Range Interpretation Comments Creatinine Lvl (test code = Creatinine 1.10 0.50-1.40 Lvl) [facility] AAMJK5654-54-07 04:57:00 Test Item Value Reference Range Interpretation Comments Sodium Lvl (test code = Sodium Lvl) 138 135-145 [facility] PZDVR4284-71-16 04:57:00 Test Item Value Reference Range Interpretation Comments Potassium Lvl (test code = Potassium 3.1 3.5-5.1 Lvl) [facility] [id number] 04:57:00 Test Item Value Reference Range Interpretation Comments Chloride Lvl (test code = Chloride Lvl) 106 95-109 [facility] [id number] 04:57:00 Test Item Value Reference Range Interpretation Comments CO2 (test code = CO2) 27 24-32 [facility] YHSQS4799-26-03 04:57:00 Test Item Value Reference Range Interpretation Comments Calcium Lvl (test code = Calcium Lvl) 8.9 8.5-10.5 [facility] [id number] 04:57:00 Test Item Value Reference Range Interpretation Comments Albumin Lvl (test code = Albumin Lvl) 4.2 3.5-5.0 [facility] [id number] 04:57:00 Test Item Value Reference Range Interpretation Comments AGAP (test code = AGAP) 8.1 10.0-20.0 [facility] [id number] 04:57:00 Test Item Value Reference Range Interpretation Comments B/C Ratio (test code = B/C Ratio) 6 1 6-25 [facility] [id number] 04:57:00 Test Item Value Reference Range Interpretation Comments eGFR (test code = eGFR) 89 [facility] FCGDI5428-84-01 04:57:00 Test Item Value Reference Range Interpretation Comments Total Protein (test code = Total 7.6 6.4-8.4 Protein) [place] [address]-08-16 04:57:00 Test Item Value Reference Range Interpretation Comments ALT (test code = ALT) 23 See_Comment [Auto mated message] The system which ge nerated this result transmit abdelrahman reference range : <=65. The reference range was not used to interpr et this result as gurpreet l/abnormal. [facility] [id number] 04:57:00 Test Item Value Reference Range Interpretation Comments AST (test code = AST) 16 See_Comment [Auto mated message] The system which ge nerated this result transmit abdelrahman reference range : <=37. The reference range was not used to interpr et this result as gurpreet l/abnormal. [facility] [id number] 04:57:00 Test Item Value Reference Range Interpretation Comments Alk Phos (test code = Alk Phos) 38 39-136 [facility] [id number] 04:57:00 Test Item Value Reference Range Interpretation Comments Bili Total (test code = Bili Total) 0.3 0.2-1.3 [facility] JFADQ5589-15-82 04:57:00 Test Item Value Reference Range Interpretation Comments Globulin (test code = Globulin) 3.4 2.7-4.2 [facility] [id number] 04:57:00 Test Item Value Reference Range Interpretation Comments A/G Ratio (test code = A/G Ratio) 1.2 1 0.7-1.6 [facility]viewErmgqoaZSRXBHANOF4213-84-02 04:57:00 Test Item Value Reference Range Interpretation Comments WBC (test code = WBC) 9.2 3.7-10.4 [facility]viewBjrskhoEBVJWEAHMJ1364-74-56 04:57:00 Test Item Value Reference Range Interpretation Comments RBC (test code = RBC) 4.56 4.70-6.10 [facility] AustinSpdfeeiBPSGRCNJPA4795-52-88 04:57:00 Test Item Value Reference Range Interpretation Comments Hgb (test code = Hgb) 13.3 14.0-18.0 [facility]XwnxhppOJUUOBMXVC3988-18-51 04:57:00 Test Item Value Reference Range Interpretation Comments Hct (test code = Hct) 39.7 42.0-54.0 [facility] HospitalXfhpkbqALEGOLAQDT1760-25-20 04:57:00 Test Item Value Reference Range Interpretation Comments MCV (test code = MCV) 87.0 80.0-94.0 [facility] HospitalVmlwibiKMNBLXWMYE9852-50-03 04:57:00 Test Item Value Reference Range Interpretation Comments MCH (test code = MCH) 29.2 pg 27.0-31.0 [facility] HospitalGnewrtiYMSWJVQQUJ8943-99-61 04:57:00 Test Item Value Reference Range Interpretation Comments MCHC (test code = MCHC) 33.6 32.0-36.0 [facility] HospitalTcwvupwOGDZUURKWG1147-35-53 04:57:00 Test Item Value Reference Range Interpretation Comments RDW (test code = RDW) 13.1 11.5-14.5 [facility] HospitalCsghhhfFSPGCTHDCM9082-66-21 04:57:00 Test Item Value Reference Range Interpretation Comments Platelet (test code = Platelet) 162 133-450 [facility] HospitalPizgiztCPZGBNLUAA5033-22-28 04:57:00 Test Item Value Reference Range Interpretation Comments MPV (test code = MPV) 9.8 7.4-10.4 [facility] HospitalAxkwxzpYQUXYKCYMS5413-45-45 04:57:00 Test Item Value Reference Range Interpretation Comments Segs (test code = Segs) 79.0 45.0-75.0 [facility] HospitalJlnbuyhHICFTWHTXS2258-08-39 04:57:00 Test Item Value Reference Range Interpretation Comments Lymphocytes (test code = Lymphocytes) 13.7 20.0-40.0 [facility] HospitalIjgsdfjRUZBBYTART8613-90-41 04:57:00 Test Item Value Reference Range Interpretation Comments Monocytes (test code = Monocytes) 6.5 2.0-12.0 [facility] HospitalYseidvyPMKCBNBVFG0432-64-33 04:57:00 Test Item Value Reference Range Interpretation Comments Eosinophils (test code = 0.5 See_Comment [A utomated message] The Eosinophils) system which ge nerated this result tra nsmitted reference range : <=4.0. The reference r annemarie was not used to int erpret this result as normal/abnormal . [facility] HospitalRjnvhkdKFMGSVRYHU2790-21-95 04:57:00 Test Item Value Reference Range Interpretation Comments Basophils (test code = 0.3 See_Comment [Aut omated message] The Basophils) system which ge nerated this result tra nsmitted reference range : <=1.0. The reference r annemarie was not used to int erpret this result as normal/abnormal . [facility]viewKvueimiWIHTOGNLHE8777-28-02 04:57:00 Test Item Value Reference Range Interpretation Comments Neutrophils # (test code = Neutrophils 7.3 1.5-8.1 #) [facility]viewYbytmntAQFGDBXPJU2900-84-59 04:57:00 Test Item Value Reference Range Interpretation Comments Lymphocytes # (test code = Lymphocytes 1.3 1.0-5.5 #) [facility] HospitalYcejfqrKMRIMHKHVK1418-71-21 04:57:00 Test Item Value Reference Range Interpretation Comments Monocytes # (test code 0.6 See_Comment [Aut omated message] The = Monocytes #) system which generated this result tra nsmitted reference range : <=0.8. The reference r annemarie was not used to int erpret this result as normal/abnormal . [facility] AustinGndnqpkRLFHJNOOCR4158-03-70 04:57:00 Test Item Value Reference Range Interpretation Comments Ethanol Lvl (test code = Ethanol Lvl) no gt [facility]viewZtellqaIORRFKLOVB8307-49-32 04:57:00 Test Item Value Reference Range Interpretation Comments Etoh (%) (test code = Etoh (%)) no gt [facility]viewTiwlxfgEGZWYFMSOA6727-54-72 04:57:00 Test Item Value Reference Range Interpretation Comments Acetaminoph Lvl (test code (12/14/19 11:57 PM) 10-20 = Acetaminoph Lvl) [facility] LongviewWxacaieGRNHWQUJTV0125-62-42 04:57:00 Test Item Value Reference Range Interpretation Comments Salicylate Lvl (test 3.4 See_Comment [Autom ated message] The code = Salicylate Lvl) syste m which generated this result tra nsmitted reference range : <=30.0. The reference r annemarie was not used to int erpret this result as normal/abnormal . [facility] AustinStellar [id number] 04:57:00 Test Item Value Reference Range Interpretation Comments Glucose Lvl (test code = Glucose Lvl) 141 70-99 [facility] AustinIMshoppingFORMERLY [facility]ERSJRST3499-10-96 04:57:00 Test Item Value Reference Range Interpretation Comments BUN (test code = BUN) 7 7-22 [place] 758990-08-16 04:57:00 Test Item Value Reference Range Interpretation Comments Creatinine Lvl (test code = Creatinine 1.10 0.50-1.40 Lvl) [facility]2020-08-16 04:57:00 Test Item Value Reference Range Interpretation Comments Sodium Lvl (test code = Sodium Lvl) 138 135-145 [facility] AustinIMshoppingASHLEY [place] [address]JTIIG9224-53-21 04:57:00 Test Item Value Reference Range Interpretation Comments Potassium Lvl (test code = Potassium 3.1 3.5-5.1 Lvl) [facility] AustinIMshoppingFORMERLY [facility] CENTERXNTOI7552-17-59 04:57:00 Test Item Value Reference Range Interpretation Comments Chloride Lvl (test code = Chloride Lvl) 106 95-109 [facility] AustinIMshoppingASHLEY [place] [address]PAEEW2121-64-02 04:57:00 Test Item Value Reference Range Interpretation Comments CO2 (test code = CO2) 27 24-32 [facility] AustinIMshoppingASHLEY [place] [address]DDNFJ7065-22-98 04:57:00 Test Item Value Reference Range Interpretation Comments Calcium Lvl (test code = Calcium Lvl) 8.9 8.5-10.5 [facility] AustinIMshoppingASHLEY [place] [address]RPMKS0647-30-69 04:57:00 Test Item Value Reference Range Interpretation Comments Albumin Lvl (test code = Albumin Lvl) 4.2 3.5-5.0 [facility]2020-08-16 04:57:00 Test Item Value Reference Range Interpretation Comments AGAP (test code = AGAP) 8.1 10.0-20.0 [facility] AustinIMshoppingASHLEY [place] [address]CELPH2591-58-90 04:57:00 Test Item Value Reference Range Interpretation Comments B/C Ratio (test code = B/C Ratio) 6 1 6-25 [facility] AustinIMshoppingASHLEY [place] [address]DPDQL2789-72-72 04:57:00 Test Item Value Reference Range Interpretation Comments eGFR (test code = eGFR) 89 [place] 758990-08-16 04:57:00 Test Item Value Reference Range Interpretation Comments Total Protein (test code = Total 7.6 6.4-8.4 Protein) [place] 758990-08-16 04:57:00 Test Item Value Reference Range Interpretation Comments ALT (test code = ALT) 23 See_Comment [Auto mated message] The system which ge nerated this result transmit abdelrahman reference range : <=65. The reference range was not used to interpr et this result as gurpreet l/abnormal. [facility] [employer] [facility] [id number] 04:57:00 Test Item Value Reference Range Interpretation Comments AST (test code = AST) 16 See_Comment [Auto mated message] The system which ge nerated this result transmit abdelrahman reference range : <=37. The reference range was not used to interpr et this result as gurpreet l/abnormal. [facility] GRGWL9770-75-56 04:57:00 Test Item Value Reference Range Interpretation Comments Alk Phos (test code = Alk Phos) 38 39-136 [facility] PIQEF2449-34-04 04:57:00 Test Item Value Reference Range Interpretation Comments Bili Total (test code = Bili Total) 0.3 0.2-1.3 [facility] HIFHQ1136-20-79 04:57:00 Test Item Value Reference Range Interpretation Comments Globulin (test code = Globulin) 3.4 2.7-4.2 [facility] [id number] 04:57:00 Test Item Value Reference Range Interpretation Comments A/G Ratio (test code = A/G Ratio) 1.2 1 0.7-1.6 [facility] AustinErumjxePVACWVCYXO9279-13-25 04:57:00 Test Item Value Reference Range Interpretation Comments WBC (test code = WBC) 9.2 3.7-10.4 [facility] JkeidnpNZCHZECAJK3714-57-24 04:57:00 Test Item Value Reference Range Interpretation Comments RBC (test code = RBC) 4.56 4.70-6.10 [facility] PnnqgojBHYWZBJRPX9798-14-92 04:57:00 Test Item Value Reference Range Interpretation Comments Hgb (test code = Hgb) 13.3 14.0-18.0 [facility] MdvaomnODBCFRSRQY7174-43-97 04:57:00 Test Item Value Reference Range Interpretation Comments Hct (test code = Hct) 39.7 42.0-54.0 [facility] JrromrjLAREDLHFSD9929-78-51 04:57:00 Test Item Value Reference Range Interpretation Comments MCV (test code = MCV) 87.0 80.0-94.0 [facility] HospitalIfashsvKRQNNMRSNU8013-74-18 04:57:00 Test Item Value Reference Range Interpretation Comments MCH (test code = MCH) 29.2 pg 27.0-31.0 [facility] HospitalMwlvtoxRFFLEDXFTD1010-16-82 04:57:00 Test Item Value Reference Range Interpretation Comments MCHC (test code = MCHC) 33.6 32.0-36.0 [facility] HospitalZnkqqogKBMXAUCZDP4352-80-74 04:57:00 Test Item Value Reference Range Interpretation Comments RDW (test code = RDW) 13.1 11.5-14.5 [facility] HospitalVuoetpkDILJGNZUHU8425-07-08 04:57:00 Test Item Value Reference Range Interpretation Comments Platelet (test code = Platelet) 162 133-450 [facility] HospitalXysdaigDMDDYLTAKA9045-31-76 04:57:00 Test Item Value Reference Range Interpretation Comments MPV (test code = MPV) 9.8 7.4-10.4 [facility] HospitalCdedlojKPFJEKYPDF4112-96-56 04:57:00 Test Item Value Reference Range Interpretation Comments Segs (test code = Segs) 79.0 45.0-75.0 [facility] HospitalMufyesnUHHCXGFMLP7297-58-85 04:57:00 Test Item Value Reference Range Interpretation Comments Lymphocytes (test code = Lymphocytes) 13.7 20.0-40.0 [facility] HospitalRekpkhuUYNNCZSBXT9673-62-61 04:57:00 Test Item Value Reference Range Interpretation Comments Monocytes (test code = Monocytes) 6.5 2.0-12.0 [facility] HospitalFkhzqkpWEKVBKUICB1988 04:57:00 Test Item Value Reference Range Interpretation Comments Eosinophils (test code = 0.5 See_Comment [A utomated message] The Eosinophils) system which ge nerated this result tra nsmitted reference range : <=4.0. The reference r annemarie was not used to int erpret this result as normal/abnormal . [facility] HospitalGrhnboeQPYSSVQTWT4378-17-74 04:57:00 Test Item Value Reference Range Interpretation Comments Basophils (test code = 0.3 See_Comment [Aut omated message] The Basophils) system which ge nerated this result tra nsmitted reference range : <=1.0. The reference r annemarie was not used to int erpret this result as normal/abnormal . [facility] HospitalYbuwubzIIXTFAGJYQ6414-66-03 04:57:00 Test Item Value Reference Range Interpretation Comments Neutrophils # (test code = Neutrophils 7.3 1.5-8.1 #) [facility]viewKutyoskASIOVAXYCK8880-74-92 04:57:00 Test Item Value Reference Range Interpretation Comments Lymphocytes # (test code = Lymphocytes 1.3 1.0-5.5 #) [facility] HospitalUuqbqbvIXCOKLQCAK4384-70-84 04:57:00 Test Item Value Reference Range Interpretation Comments Monocytes # (test code 0.6 See_Comment [Aut omated message] The = Monocytes #) system which generated this result tra nsmitted reference range : <=0.8. The reference r annemarie was not used to int erpret this result as normal/abnormal . [facility]XrrfjpbDWXYSXFDUM1689-95-64 04:57:00 Test Item Value Reference Range Interpretation Comments Ethanol Lvl (test code = Ethanol Lvl) no gt [facility] LongviewCsysdtrJESQTEFWBS2668-63-42 04:57:00 Test Item Value Reference Range Interpretation Comments Etoh (%) (test code = Etoh (%)) no gt [facility] LongviewEcpbgzgPSEBPKZIFJ7167-68-25 04:57:00 Test Item Value Reference Range Interpretation Comments Acetaminoph Lvl (test code (12/14/19 11:57 PM) 10-20 = Acetaminoph Lvl) [facility] HospitalZfommojSCHTBAQIZZ9267-54-54 04:57:00 Test Item Value Reference Range Interpretation Comments Salicylate Lvl (test 3.4 See_Comment [Autom ated message] The code = Salicylate Lvl) syste m which generated this result tra nsmitted reference range : <=30.0. The reference r annemarie was not used to int erpret this result as normal/abnormal . [facility] EZXVS9564-58-01 04:57:00 Test Item Value Reference Range Interpretation Comments Glucose Lvl (test code = Glucose Lvl) 141 70-99 [facility] [id number] 04:57:00 Test Item Value Reference Range Interpretation Comments BUN (test code = BUN) 7 7-22 [facility] [id number] 04:57:00 Test Item Value Reference Range Interpretation Comments Creatinine Lvl (test code = Creatinine 1.10 0.50-1.40 Lvl) [facility] AustinIMshoppingASH[place] [address]QSTYW8194-74-94 04:57:00 Test Item Value Reference Range Interpretation Comments Sodium Lvl (test code = Sodium Lvl) 138 135-145 [facility] AustinIMsh[facility]ppingASH[place] [address]OHQHP8254-92-27 04:57:00 Test Item Value Reference Range Interpretation Comments Potassium Lvl (test code = Potassium 3.1 3.5-5.1 Lvl) [facility] AustinIMshoppingFORMERLY [facility] CENTERIPFUG2279-90-32 04:57:00 Test Item Value Reference Range Interpretation Comments Chloride Lvl (test code = Chloride Lvl) 106 95-109 [facility] AustinIMsh[place]ppingASH[place] [address]IGYSR7415-54-29 04:57:00 Test Item Value Reference Range Interpretation Comments CO2 (test code = CO2) 27 24-32 [facility] EDGCP7791-75-68 04:57:00 Test Item Value Reference Range Interpretation Comments Calcium Lvl (test code = Calcium Lvl) 8.9 8.5-10.5 [facility] PPLHW5634-96-47 04:57:00 Test Item Value Reference Range Interpretation Comments Albumin Lvl (test code = Albumin Lvl) 4.2 3.5-5.0 [facility] [id number] 04:57:00 Test Item Value Reference Range Interpretation Comments AGAP (test code = AGAP) 8.1 10.0-20.0 [facility] RFPPO4617-13-95 04:57:00 Test Item Value Reference Range Interpretation Comments B/C Ratio (test code = B/C Ratio) 6 1 6-25 [facility] AustinIMshoppingASH[place] [address]LWBVQ1602-24-27 04:57:00 Test Item Value Reference Range Interpretation Comments eGFR (test code = eGFR) 89 [facility] NBYEF7970-10-14 04:57:00 Test Item Value Reference Range Interpretation Comments Total Protein (test code = Total 7.6 6.4-8.4 Protein) [facility] [id number] 04:57:00 Test Item Value Reference Range Interpretation Comments ALT (test code = ALT) 23 See_Comment [Auto mated message] The system which ge nerated this result transmit abdelrahman reference range : <=65. The reference range was not used to interpr et this result as gurpreet l/abnormal. [facility] EZJJJ3146-24-63 04:57:00 Test Item Value Reference Range Interpretation Comments AST (test code = AST) 16 See_Comment [Auto mated message] The system which ge nerated this result transmit abdelrahman reference range : <=37. The reference range was not used to interpr et this result as gurpreet l/abnormal. [facility] [facility] PFYQR8990-10-33 04:57:00 Test Item Value Reference Range Interpretation Comments Alk Phos (test code = Alk Phos) 38 39-136 [facility] [employer]CHE[employer] GMILX0250-37-32 04:57:00 Test Item Value Reference Range Interpretation Comments Bili Total (test code = Bili Total) 0.3 0.2-1.3 [facility] [employer]CHE[employer] SQLGV8260-22-59 04:57:00 Test Item Value Reference Range Interpretation Comments Globulin (test code = Globulin) 3.4 2.7-4.2 [facility] [employer] HZCGI9669-78-42 04:57:00 Test Item Value Reference Range Interpretation Comments A/G Ratio (test code = A/G Ratio) 1.2 1 0.7-1.6 [facility] AustinLhutxtoUINVJRKWIU6490-55-05 04:57:00 Test Item Value Reference Range Interpretation Comments WBC (test code = WBC) 9.2 3.7-10.4 [facility] AustinPobdxydCTSDIUMFKY5812-25-42 04:57:00 Test Item Value Reference Range Interpretation Comments RBC (test code = RBC) 4.56 4.70-6.10 [facility] AustinMfshdzuITQYTXJVJN3740-38-27 04:57:00 Test Item Value Reference Range Interpretation Comments Hgb (test code = Hgb) 13.3 14.0-18.0 [facility] AustinJtiatrhKNBQVQZZER4810-75-14 04:57:00 Test Item Value Reference Range Interpretation Comments Hct (test code = Hct) 39.7 42.0-54.0 [facility] AustinHxhuwslHNZJOIBJLM5018-02-22 04:57:00 Test Item Value Reference Range Interpretation Comments MCV (test code = MCV) 87.0 80.0-94.0 [facility] AustinXmsuiisBFMLMJBWFV1268-14-66 04:57:00 Test Item Value Reference Range Interpretation Comments MCH (test code = MCH) 29.2 pg 27.0-31.0 [facility] AustinDqzorkgFVNOFUQPYT5446-09-39 04:57:00 Test Item Value Reference Range Interpretation Comments MCHC (test code = MCHC) 33.6 32.0-36.0 [place] 632290-08-16 04:57:00 Test Item Value Reference Range Interpretation Comments RDW (test code = RDW) 13.1 11.5-14.5 [place] 632290-08-16 04:57:00 Test Item Value Reference Range Interpretation Comments Platelet (test code = Platelet) 162 133-450 [place] 632290-08-16 04:57:00 Test Item Value Reference Range Interpretation Comments MPV (test code = MPV) 9.8 7.4-10.4 [place] 632290-08-16 04:57:00 Test Item Value Reference Range Interpretation Comments Segs (test code = Segs) 79.0 45.0-75.0 [place] [address]-08-16 04:57:00 Test Item Value Reference Range Interpretation Comments Lymphocytes (test code = Lymphocytes) 13.7 20.0-40.0 [place] [address]-08-16 04:57:00 Test Item Value Reference Range Interpretation Comments Monocytes (test code = Monocytes) 6.5 2.0-12.0 [place] 632290-08-16 04:57:00 Test Item Value Reference Range Interpretation Comments Eosinophils (test code = 0.5 See_Comment [A utomated message] The Eosinophils) system which ge nerated this result tra nsmitted reference range : <=4.0. The reference r annemarie was not used to int erpret this result as normal/abnormal . [facility] HospitalTytpnrkHZOOWMAALO1577-71-84 04:57:00 Test Item Value Reference Range Interpretation Comments Basophils (test code = 0.3 See_Comment [Aut omated message] The Basophils) system which ge nerated this result tra nsmitted reference range : <=1.0. The reference r annemarie was not used to int erpret this result as normal/abnormal . [place] 632290-08-16 04:57:00 Test Item Value Reference Range Interpretation Comments Neutrophils # (test code = Neutrophils 7.3 1.5-8.1 #) [place] 632290-08-16 04:57:00 Test Item Value Reference Range Interpretation Comments Lymphocytes # (test code = Lymphocytes 1.3 1.0-5.5 #) [place] 632290-08-16 04:57:00 Test Item Value Reference Range Interpretation Comments Monocytes # (test code 0.6 See_Comment [Aut omated message] The = Monocytes #) system which generated this result tra nsmitted reference range : <=0.8. The reference r annemarie was not used to int erpret this result as normal/abnormal . [facility] AustinOingzqjPDGVBQEARW8188-19-92 04:57:00 Test Item Value Reference Range Interpretation Comments Ethanol Lvl (test code = Ethanol Lvl) [facility] gt [facility]WcwvolmSCNVMOLISE7720-17-43 04:57:00 Test Item Value Reference Range Interpretation Comments Etoh (%) (test code = Etoh (%)) no gt [facility] HospitalNgxlvkrFDUNHHOVNZ5461-17-37 04:57:00 Test Item Value Reference Range Interpretation Comments Acetaminoph Lvl (test code (12/14/19 11:57 PM) 10-20 = Acetaminoph Lvl) [facility] BrookRriihezJDXMQCRVQE3938-85-01 04:57:00 Test Item Value Reference Range Interpretation Comments Salicylate Lvl (test 3.4 See_Comment [Autom ated message] The code = Salicylate Lvl) syste m which generated this result tra nsmitted reference range : <=30.0. The reference r annemarie was not used to int erpret this result as normal/abnormal . [facility] IQYYJ9796-69-57 04:57:00 Test Item Value Reference Range Interpretation Comments Glucose Lvl (test code = Glucose Lvl) 141 70-99 [facility] [id number] 04:57:00 Test Item Value Reference Range Interpretation Comments BUN (test code = BUN) 7 7-22 [facility] [employer] YDPZM5896-82-07 04:57:00 Test Item Value Reference Range Interpretation Comments Creatinine Lvl (test code = Creatinine 1.10 0.50-1.40 Lvl) [facility] [id number] 04:57:00 Test Item Value Reference Range Interpretation Comments Sodium Lvl (test code = Sodium Lvl) 138 135-145 [facility] [employer] [id number] 04:57:00 Test Item Value Reference Range Interpretation Comments Potassium Lvl (test code = Potassium 3.1 3.5-5.1 Lvl) [facility] [employer] [id number] 04:57:00 Test Item Value Reference Range Interpretation Comments Chloride Lvl (test code = Chloride Lvl) 106 95-109 [facility] [employer] CWEMD5744-01-21 04:57:00 Test Item Value Reference Range Interpretation Comments CO2 (test code = CO2) 27 24-32 [facility] [employer] [id number] 04:57:00 Test Item Value Reference Range Interpretation Comments Calcium Lvl (test code = Calcium Lvl) 8.9 8.5-10.5 [facility] [employer] [id number] 04:57:00 Test Item Value Reference Range Interpretation Comments Albumin Lvl (test code = Albumin Lvl) 4.2 3.5-5.0 [facility] [employer] [id number] 04:57:00 Test Item Value Reference Range Interpretation Comments AGAP (test code = AGAP) 8.1 10.0-20.0 [facility] [employer] [id number] 04:57:00 Test Item Value Reference Range Interpretation Comments B/C Ratio (test code = B/C Ratio) 6 1 6-25 [facility] [employer] [id number] 04:57:00 Test Item Value Reference Range Interpretation Comments eGFR (test code = eGFR) 89 [facility] [employer] ESIZV4610-96-94 04:57:00 Test Item Value Reference Range Interpretation Comments Total Protein (test code = Total 7.6 6.4-8.4 Protein) [facility] [id number] 04:57:00 Test Item Value Reference Range Interpretation Comments ALT (test code = ALT) 23 See_Comment [Auto mated message] The system which ge nerated this result transmit abdelrahman reference range : <=65. The reference range was not used to interpr et this result as gurpreet l/abnormal. [facility] [id number] 04:57:00 Test Item Value Reference Range Interpretation Comments AST (test code = AST) 16 See_Comment [Auto mated message] The system which ge nerated this result transmit abdelrahman reference range : <=37. The reference range was not used to interpr et this result as gurpreet l/abnormal. [facility] [id number] 04:57:00 Test Item Value Reference Range Interpretation Comments Alk Phos (test code = Alk Phos) 38 39-136 [facility]2020-08-16 04:57:00 Test Item Value Reference Range Interpretation Comments Bili Total (test code = Bili Total) 0.3 0.2-1.3 [facility] [id number] 04:57:00 Test Item Value Reference Range Interpretation Comments Globulin (test code = Globulin) 3.4 2.7-4.2 [facility] [id number] 04:57:00 Test Item Value Reference Range Interpretation Comments A/G Ratio (test code = A/G Ratio) 1.2 1 0.7-1.6 [facility] HospitalQczfxfySKUQMEXLKF6174-95-63 04:57:00 Test Item Value Reference Range Interpretation Comments WBC (test code = WBC) 9.2 3.7-10.4 [facility] HospitalJhrwjvrBDRCNQWYMB4778-01-15 04:57:00 Test Item Value Reference Range Interpretation Comments RBC (test code = RBC) 4.56 4.70-6.10 [facility] HospitalLmoaacaUHTEDBCHUB3084-58-73 04:57:00 Test Item Value Reference Range Interpretation Comments Hgb (test code = Hgb) 13.3 14.0-18.0 [facility] HospitalCcifmlkKUTPCXQEFO2566-20-76 04:57:00 Test Item Value Reference Range Interpretation Comments Hct (test code = Hct) 39.7 42.0-54.0 [facility] HospitalSlfapswUIBEAIRMKK3810-41-31 04:57:00 Test Item Value Reference Range Interpretation Comments MCV (test code = MCV) 87.0 80.0-94.0 [facility] HospitalVavvikjNHSWQWLNAB8076-07-41 04:57:00 Test Item Value Reference Range Interpretation Comments MCH (test code = MCH) 29.2 pg 27.0-31.0 [facility]OubkljgVJDLRUBNSW3588-79-44 04:57:00 Test Item Value Reference Range Interpretation Comments MCHC (test code = MCHC) 33.6 32.0-36.0 [facility] HospitalGfuvndyTHPSGYWERY6944-88-85 04:57:00 Test Item Value Reference Range Interpretation Comments RDW (test code = RDW) 13.1 11.5-14.5 [facility] HospitalKeahnpiKGWOGNPZAW3895-92-20 04:57:00 Test Item Value Reference Range Interpretation Comments Platelet (test code = Platelet) 162 133-450 [facility] HospitalIlmfxnmNUVYMGKZNP4485-45-02 04:57:00 Test Item Value Reference Range Interpretation Comments MPV (test code = MPV) 9.8 7.4-10.4 [facility] HospitalRjshmtcENAUWNWZHW0308-76-61 04:57:00 Test Item Value Reference Range Interpretation Comments Segs (test code = Segs) 79.0 45.0-75.0 [facility] HospitalPnjchimXYUKSLVDEU7344-47-24 04:57:00 Test Item Value Reference Range Interpretation Comments Lymphocytes (test code = Lymphocytes) 13.7 20.0-40.0 [facility] HospitalKtokgqiGDPPRRFESI9605-58-10 04:57:00 Test Item Value Reference Range Interpretation Comments Monocytes (test code = Monocytes) 6.5 2.0-12.0 [facility] HospitalHtyzuioCUMAJOZUTX0370-72-48 04:57:00 Test Item Value Reference Range Interpretation Comments Eosinophils (test code = 0.5 See_Comment [A utomated message] The Eosinophils) system which ge nerated this result tra nsmitted reference range : <=4.0. The reference r annemarie was not used to int erpret this result as normal/abnormal . [facility] HospitalJazpppiMLVSKEAHHN9448-14-18 04:57:00 Test Item Value Reference Range Interpretation Comments Basophils (test code = 0.3 See_Comment [Aut omated message] The Basophils) system which ge nerated this result tra nsmitted reference range : <=1.0. The reference r annemarie was not used to int erpret this result as normal/abnormal . [facility] HospitalWhysidvNSLMYPYRIQ4924-12-63 04:57:00 Test Item Value Reference Range Interpretation Comments Neutrophils # (test code = Neutrophils 7.3 1.5-8.1 #) [facility] HospitalMigkwojGQRSSHNUWX6955-28-62 04:57:00 Test Item Value Reference Range Interpretation Comments Lymphocytes # (test code = Lymphocytes 1.3 1.0-5.5 #) [facility] HospitalLruqasgBQYRTEUJEU8951-54-58 04:57:00 Test Item Value Reference Range Interpretation Comments Monocytes # (test code 0.6 See_Comment [Aut omated message] The = Monocytes #) system which generated this result tra nsmitted reference range : <=0.8. The reference r annemarie was not used to int erpret this result as normal/abnormal . [facility]HpdttofYKMDKJFWGR8288-24-43 04:57:00 Test Item Value Reference Range Interpretation Comments Ethanol Lvl (test code = Ethanol Lvl) no gt [place] [id number] 04:57:00 Test Item Value Reference Range Interpretation Comments Etoh (%) (test code = Etoh (%)) no gt [place] [id number] 04:57:00 Test Item Value Reference Range Interpretation Comments Acetaminoph Lvl (test code (12/14/19 11:57 PM) - = Acetaminoph Lvl) [facility]DycejfjNLRUPEGSBV7966-84-84 04:57:00 Test Item Value Reference Range Interpretation Comments Salicylate Lvl (test 3.4 See_Comment [Autom ated message] The code = Salicylate Lvl) syste m which generated this result tra nsmitted reference range : <=30.0. The reference r annemarie was not used to int erpret this result as normal/abnormal . [facility] [id number] 04:57:00 Test Item Value Reference Range Interpretation Comments Glucose Lvl (test code = Glucose Lvl) 141 70-99 [facility] [id number] 04:57:00 Test Item Value Reference Range Interpretation Comments BUN (test code = BUN) 7 7-22 [facility] [id number] 04:57:00 Test Item Value Reference Range Interpretation Comments Creatinine Lvl (test code = Creatinine 1.10 0.50-1.40 Lvl) [facility] [id number] 04:57:00 Test Item Value Reference Range Interpretation Comments Sodium Lvl (test code = Sodium Lvl) 138 135-145 [facility] [id number] 04:57:00 Test Item Value Reference Range Interpretation Comments Potassium Lvl (test code = Potassium 3.1 3.5-5.1 Lvl) [facility] [id number] 04:57:00 Test Item Value Reference Range Interpretation Comments Chloride Lvl (test code = Chloride Lvl) 106 95-109 [facility] [id number] 04:57:00 Test Item Value Reference Range Interpretation Comments CO2 (test code = CO2) 27 24-32 [facility] [id number] 04:57:00 Test Item Value Reference Range Interpretation Comments Calcium Lvl (test code = Calcium Lvl) 8.9 8.5-10.5 [facility] [id number] 04:57:00 Test Item Value Reference Range Interpretation Comments Albumin Lvl (test code = Albumin Lvl) 4.2 3.5-5.0 [facility] [id number] 04:57:00 Test Item Value Reference Range Interpretation Comments AGAP (test code = AGAP) 8.1 10.0-20.0 [facility] [id number] 04:57:00 Test Item Value Reference Range Interpretation Comments B/C Ratio (test code = B/C Ratio) 6 1 6-25 [facility] [id number] 04:57:00 Test Item Value Reference Range Interpretation Comments eGFR (test code = eGFR) 89 [facility] [id number] 04:57:00 Test Item Value Reference Range Interpretation Comments Total Protein (test code = Total 7.6 6.4-8.4 Protein) [facility] [id number] 04:57:00 Test Item Value Reference Range Interpretation Comments ALT (test code = ALT) 23 See_Comment [Auto mated message] The system which ge nerated this result transmit abdelrahman reference range : <=65. The reference range was not used to interpr et this result as gurpreet l/abnormal. [facility] [id number] 04:57:00 Test Item Value Reference Range Interpretation Comments AST (test code = AST) 16 See_Comment [Auto mated message] The system which ge nerated this result transmit abdelrahman reference range : <=37. The reference range was not used to interpr et this result as gurpreet l/abnormal. [facility] [id number] 04:57:00 Test Item Value Reference Range Interpretation Comments Alk Phos (test code = Alk Phos) 38 39-136 [facility] [id number] 04:57:00 Test Item Value Reference Range Interpretation Comments Bili Total (test code = Bili Total) 0.3 0.2-1.3 [facility] [id number] 04:57:00 Test Item Value Reference Range Interpretation Comments Globulin (test code = Globulin) 3.4 2.7-4.2 [facility] [id number] 04:57:00 Test Item Value Reference Range Interpretation Comments A/G Ratio (test code = A/G Ratio) 1.2 1 0.7-1.6 [facility] HospitalYqzoiupGABDMIYVFQ7744-52-59 04:57:00 Test Item Value Reference Range Interpretation Comments WBC (test code = WBC) 9.2 3.7-10.4 [facility] HospitalFvjicgsZTIIKWFAMQ1382-97-83 04:57:00 Test Item Value Reference Range Interpretation Comments RBC (test code = RBC) 4.56 4.70-6.10 [facility] HospitalTccpsskWLNKJKQGSF2847-02-07 04:57:00 Test Item Value Reference Range Interpretation Comments Hgb (test code = Hgb) 13.3 14.0-18.0 [facility] HospitalCxmgeeuUSTBVUQOTK9528-61-56 04:57:00 Test Item Value Reference Range Interpretation Comments Hct (test code = Hct) 39.7 42.0-54.0 [facility] HospitalCunwqweKWJSMSLRDD4685-60-89 04:57:00 Test Item Value Reference Range Interpretation Comments MCV (test code = MCV) 87.0 80.0-94.0 [facility] HospitalCjmcjnfSTLQRYMQZV5005-11-34 04:57:00 Test Item Value Reference Range Interpretation Comments MCH (test code = MCH) 29.2 pg 27.0-31.0 [facility] HospitalYtuooaoOIXIPJPQYW8264-60-59 04:57:00 Test Item Value Reference Range Interpretation Comments MCHC (test code = MCHC) 33.6 32.0-36.0 [facility] HospitalHepkotjDVINGOLDJL2777-92-78 04:57:00 Test Item Value Reference Range Interpretation Comments RDW (test code = RDW) 13.1 11.5-14.5 [facility] HospitalNhpgojhPFEUKXFGJX1156-29-49 04:57:00 Test Item Value Reference Range Interpretation Comments Platelet (test code = Platelet) 162 133-450 [facility] HospitalBlrvpnmCDVBCUHXIS7055-00-41 04:57:00 Test Item Value Reference Range Interpretation Comments MPV (test code = MPV) 9.8 7.4-10.4 [facility] HospitalSmaztwvEPMJNQXNWL3248-37-23 04:57:00 Test Item Value Reference Range Interpretation Comments Segs (test code = Segs) 79.0 45.0-75.0 [facility] HospitalZhjcvwyPXWIDQDSAV2151-66-10 04:57:00 Test Item Value Reference Range Interpretation Comments Lymphocytes (test code = Lymphocytes) 13.7 20.0-40.0 [facility] HospitalOnfwmbkYDRQWHKSHO9725-18-40 04:57:00 Test Item Value Reference Range Interpretation Comments Monocytes (test code = Monocytes) 6.5 2.0-12.0 [facility] HospitalZdcgfapARCGAJWQXT5651-76-64 04:57:00 Test Item Value Reference Range Interpretation Comments Eosinophils (test code = 0.5 See_Comment [A utomated message] The Eosinophils) system which ge nerated this result tra nsmitted reference range : <=4.0. The reference r annemarie was not used to int erpret this result as normal/abnormal . [facility] HospitalPbpybxsZWJGXHLCEB1054-09-03 04:57:00 Test Item Value Reference Range Interpretation Comments Basophils (test code = 0.3 See_Comment [Aut omated message] The Basophils) system which ge nerated this result tra nsmitted reference range : <=1.0. The reference r annemarie was not used to int erpret this result as normal/abnormal . [facility] HospitalUzlnepvMZYITSNGMQ8772-46-13 04:57:00 Test Item Value Reference Range Interpretation Comments Neutrophils # (test code = Neutrophils 7.3 1.5-8.1 #) [facility] HospitalLoiahfiVNKQWHGGQS8867-79-69 04:57:00 Test Item Value Reference Range Interpretation Comments Lymphocytes # (test code = Lymphocytes 1.3 1.0-5.5 #) [facility] HospitalXiuherrPMPBJKXAKG6585-94-50 04:57:00 Test Item Value Reference Range Interpretation Comments Monocytes # (test code 0.6 See_Comment [Aut omated message] The = Monocytes #) system which generated this result tra nsmitted reference range : <=0.8. The reference r annemarie was not used to int erpret this result as normal/abnormal . [facility]JeyoiqeUTILMAJGXC4608-89-52 04:57:00 Test Item Value Reference Range Interpretation Comments Ethanol Lvl (test code = Ethanol Lvl) no gt [facility]viewKwvdoeyFTYIAVAFMJ2359-38-69 04:57:00 Test Item Value Reference Range Interpretation Comments Etoh (%) (test code = Etoh (%)) no gt [facility]viewSkyrkaoROVXTELOTB1610-58-86 04:57:00 Test Item Value Reference Range Interpretation Comments Acetaminoph Lvl (test code (12/14/19 11:57 PM) 10-20 = Acetaminoph Lvl) [facility]viewMnkbpleOFPSMJDAUH4060-56-42 04:57:00 Test Item Value Reference Range Interpretation Comments Salicylate Lvl (test 3.4 See_Comment [Autom ated message] The code = Salicylate Lvl) syste m which generated this result tra nsmitted reference range : <=30.0. The reference r annemarie was not used to int erpret this result as normal/abnormal . [facility] [id number] 04:57:00 Test Item Value Reference Range Interpretation Comments Glucose Lvl (test code = Glucose Lvl) 141 70-99 [facility] [id number] 04:57:00 Test Item Value Reference Range Interpretation Comments BUN (test code = BUN) 7 7-22 [facility] [id number] 04:57:00 Test Item Value Reference Range Interpretation Comments Creatinine Lvl (test code = Creatinine 1.10 0.50-1.40 Lvl) [facility] [id number] 04:57:00 Test Item Value Reference Range Interpretation Comments Sodium Lvl (test code = Sodium Lvl) 138 135-145 [facility] [id number] 04:57:00 Test Item Value Reference Range Interpretation Comments Potassium Lvl (test code = Potassium 3.1 3.5-5.1 Lvl) [facility] [id number] 04:57:00 Test Item Value Reference Range Interpretation Comments Chloride Lvl (test code = Chloride Lvl) 106 95-109 [facility] [id number] 04:57:00 Test Item Value Reference Range Interpretation Comments CO2 (test code = CO2) 27 24-32 [facility] [id number] 04:57:00 Test Item Value Reference Range Interpretation Comments Calcium Lvl (test code = Calcium Lvl) 8.9 8.5-10.5 [facility] [id number] 04:57:00 Test Item Value Reference Range Interpretation Comments Albumin Lvl (test code = Albumin Lvl) 4.2 3.5-5.0 [facility] [id number] 04:57:00 Test Item Value Reference Range Interpretation Comments AGAP (test code = AGAP) 8.1 10.0-20.0 [facility] [id number] 04:57:00 Test Item Value Reference Range Interpretation Comments B/C Ratio (test code = B/C Ratio) 6 1 6-25 [facility] [id number] 04:57:00 Test Item Value Reference Range Interpretation Comments eGFR (test code = eGFR) 89 [facility] [id number] 04:57:00 Test Item Value Reference Range Interpretation Comments Total Protein (test code = Total 7.6 6.4-8.4 Protein) [facility] [id number] 04:57:00 Test Item Value Reference Range Interpretation Comments ALT (test code = ALT) 23 See_Comment [Auto mated message] The system which ge nerated this result transmit abdelrahman reference range : <=65. The reference range was not used to interpr et this result as gurpreet l/abnormal. [facility] [id number] 04:57:00 Test Item Value Reference Range Interpretation Comments AST (test code = AST) 16 See_Comment [Auto mated message] The system which ge nerated this result transmit abdelrahman reference range : <=37. The reference range was not used to interpr et this result as gurpreet l/abnormal. [facility] [id number] 04:57:00 Test Item Value Reference Range Interpretation Comments Alk Phos (test code = Alk Phos) 38 39-136 [facility] [id number] 04:57:00 Test Item Value Reference Range Interpretation Comments Bili Total (test code = Bili Total) 0.3 0.2-1.3 [facility] [id number] 04:57:00 Test Item Value Reference Range Interpretation Comments Globulin (test code = Globulin) 3.4 2.7-4.2 [facility] [id number] 04:57:00 Test Item Value Reference Range Interpretation Comments A/G Ratio (test code = A/G Ratio) 1.2 1 0.7-1.6 [facility] AustinIenjtzzBKRHJZPZNE3707-43-78 04:57:00 Test Item Value Reference Range Interpretation Comments WBC (test code = WBC) 9.2 3.7-10.4 [facility] AustinOuiaicyUWNNZMZLNX5871-03-20 04:57:00 Test Item Value Reference Range Interpretation Comments RBC (test code = RBC) 4.56 4.70-6.10 [facility] HospitalFwwjmuxYFJBZWVVAC7660-40-86 04:57:00 Test Item Value Reference Range Interpretation Comments Hgb (test code = Hgb) 13.3 14.0-18.0 [facility] HospitalDrpbpivYDFNTFEBFR3776-83-31 04:57:00 Test Item Value Reference Range Interpretation Comments Hct (test code = Hct) 39.7 42.0-54.0 [facility] HospitalMcsyoheWSVNDKLAEH7806-55-79 04:57:00 Test Item Value Reference Range Interpretation Comments MCV (test code = MCV) 87.0 80.0-94.0 [facility] HospitalNwrkkrgXTKBJQVRDJ6168-09-59 04:57:00 Test Item Value Reference Range Interpretation Comments MCH (test code = MCH) 29.2 pg 27.0-31.0 [facility] HospitalZbknzfbISGUEBVLPB0400-24-10 04:57:00 Test Item Value Reference Range Interpretation Comments MCHC (test code = MCHC) 33.6 32.0-36.0 [facility] HospitalMsiqiniFTHKAHXGLM0823-67-17 04:57:00 Test Item Value Reference Range Interpretation Comments RDW (test code = RDW) 13.1 11.5-14.5 [facility] HospitalAdcfentJJEXBZVZND1457-27-09 04:57:00 Test Item Value Reference Range Interpretation Comments Platelet (test code = Platelet) 162 133-450 [facility] HospitalUhczshyROHFRYARFB6248-18-91 04:57:00 Test Item Value Reference Range Interpretation Comments MPV (test code = MPV) 9.8 7.4-10.4 [facility] HospitalYbvgrroUELGZXHTZO2614-63-02 04:57:00 Test Item Value Reference Range Interpretation Comments Segs (test code = Segs) 79.0 45.0-75.0 [facility] HospitalZevnkiwSNTHPWMQAV9845-43-33 04:57:00 Test Item Value Reference Range Interpretation Comments Lymphocytes (test code = Lymphocytes) 13.7 20.0-40.0 [facility] HospitalMvvjkicWSPCHFEIFQ2092-05-95 04:57:00 Test Item Value Reference Range Interpretation Comments Monocytes (test code = Monocytes) 6.5 2.0-12.0 [facility] HospitalWduyptuJLXYUEBGFQ3115-17-21 04:57:00 Test Item Value Reference Range Interpretation Comments Eosinophils (test code = 0.5 See_Comment [A utomated message] The Eosinophils) system which ge nerated this result tra nsmitted reference range : <=4.0. The reference r annemarie was not used to int erpret this result as normal/abnormal . [facility] HospitalQpubxbvCNSOXFMMQL9002-34-49 04:57:00 Test Item Value Reference Range Interpretation Comments Basophils (test code = 0.3 See_Comment [Aut omated message] The Basophils) system which ge nerated this result tra nsmitted reference range : <=1.0. The reference r annemarie was not used to int erpret this result as normal/abnormal . [facility] HospitalHboycknSBQEXZJVWT0657-23-59 04:57:00 Test Item Value Reference Range Interpretation Comments Neutrophils # (test code = Neutrophils 7.3 1.5-8.1 #) [facility] HospitalIgsnqhgUAUCCHGDCF7524-61-34 04:57:00 Test Item Value Reference Range Interpretation Comments Lymphocytes # (test code = Lymphocytes 1.3 1.0-5.5 #) [facility] HospitalFrzlnxeYSYEELJAJP6036-68-04 04:57:00 Test Item Value Reference Range Interpretation Comments Monocytes # (test code 0.6 See_Comment [Aut omated message] The = Monocytes #) system which generated this result tra nsmitted reference range : <=0.8. The reference r annemarie was not used to int erpret this result as normal/abnormal . [facility]HsibzydYZBZHDCJHN3439-74-26 04:57:00 Test Item Value Reference Range Interpretation Comments Ethanol Lvl (test code = Ethanol Lvl) [facility] gt [facility]ElfyzzhEWAEPJILRJ9299-49-03 04:57:00 Test Item Value Reference Range Interpretation Comments Etoh (%) (test code = Etoh (%)) no gt [facility]ArhkuamVYMDOKZZKQ5662-62-38 04:57:00 Test Item Value Reference Range Interpretation Comments Acetaminoph Lvl (test code (12/14/19 11:57 PM) 10-20 = Acetaminoph Lvl) [facility] BrookAsthjpnCUBDNUFHNF4716-76-12 04:57:00 Test Item Value Reference Range Interpretation Comments Salicylate Lvl (test 3.4 See_Comment [Autom ated message] The code = Salicylate Lvl) syste m which generated this result tra nsmitted reference range : <=30.0. The reference r annemarie was not used to int erpret this result as normal/abnormal . [facility] [id number] 04:57:00 Test Item Value Reference Range Interpretation Comments Glucose Lvl (test code = Glucose Lvl) 141 70-99 [facility]IM[facility]ppingASH[place] [address]142VQIVD5759-12-64 04:57:00 Test Item Value Reference Range Interpretation Comments BUN (test code = BUN) 7 7-22 [facility] AustinIMshoppingFORMERLY [facility]ERRVDJZ1509-63-73 04:57:00 Test Item Value Reference Range Interpretation Comments Creatinine Lvl (test code = Creatinine 1.10 0.50-1.40 Lvl) [facility] [id number] 04:57:00 Test Item Value Reference Range Interpretation Comments Sodium Lvl (test code = Sodium Lvl) 138 135-145 [facility] [id number] 04:57:00 Test Item Value Reference Range Interpretation Comments Potassium Lvl (test code = Potassium 3.1 3.5-5.1 Lvl) [facility] [id number] 04:57:00 Test Item Value Reference Range Interpretation Comments Chloride Lvl (test code = Chloride Lvl) 106 95-109 [facility] [id number] 04:57:00 Test Item Value Reference Range Interpretation Comments CO2 (test code = CO2) 27 24-32 [facility] [id number] 04:57:00 Test Item Value Reference Range Interpretation Comments Calcium Lvl (test code = Calcium Lvl) 8.9 8.5-10.5 [facility] [id number] 04:57:00 Test Item Value Reference Range Interpretation Comments Albumin Lvl (test code = Albumin Lvl) 4.2 3.5-5.0 [facility] [id number] 04:57:00 Test Item Value Reference Range Interpretation Comments AGAP (test code = AGAP) 8.1 10.0-20.0 [facility] [id number] 04:57:00 Test Item Value Reference Range Interpretation Comments B/C Ratio (test code = B/C Ratio) 6 1 6-25 [facility] [id number] 04:57:00 Test Item Value Reference Range Interpretation Comments eGFR (test code = eGFR) 89 [facility] [id number] 04:57:00 Test Item Value Reference Range Interpretation Comments Total Protein (test code = Total 7.6 6.4-8.4 Protein) [place] 758990-08-16 04:57:00 Test Item Value Reference Range Interpretation Comments ALT (test code = ALT) 23 See_Comment [Auto mated message] The system which ge nerated this result transmit abdelrahman reference range : <=65. The reference range was not used to interpr et this result as gurpreet l/abnormal. [facility] [id number] 04:57:00 Test Item Value Reference Range Interpretation Comments AST (test code = AST) 16 See_Comment [Auto mated message] The system which ge nerated this result transmit abdelrahman reference range : <=37. The reference range was not used to interpr et this result as gurpreet l/abnormal. [facility] [id number] 04:57:00 Test Item Value Reference Range Interpretation Comments Alk Phos (test code = Alk Phos) 38 39-136 [facility] [id number] 04:57:00 Test Item Value Reference Range Interpretation Comments Bili Total (test code = Bili Total) 0.3 0.2-1.3 [facility] [id number] 04:57:00 Test Item Value Reference Range Interpretation Comments Globulin (test code = Globulin) 3.4 2.7-4.2 [facility] [id number] 04:57:00 Test Item Value Reference Range Interpretation Comments A/G Ratio (test code = A/G Ratio) 1.2 1 0.7-1.6 [facility]viewOkbrhbmQGOOQTMDPV4952-76-51 04:57:00 Test Item Value Reference Range Interpretation Comments WBC (test code = WBC) 9.2 3.7-10.4 [place] [address]-08-16 04:57:00 Test Item Value Reference Range Interpretation Comments RBC (test code = RBC) 4.56 4.70-6.10 [place] [address]-08-16 04:57:00 Test Item Value Reference Range Interpretation Comments Hgb (test code = Hgb) 13.3 14.0-18.0 [facility] LongviewXuadbixRLACWMRNYH5924-04-28 04:57:00 Test Item Value Reference Range Interpretation Comments Hct (test code = Hct) 39.7 42.0-54.0 [place] 632290-08-16 04:57:00 Test Item Value Reference Range Interpretation Comments MCV (test code = MCV) 87.0 80.0-94.0 [place] 632290-08-16 04:57:00 Test Item Value Reference Range Interpretation Comments MCH (test code = MCH) 29.2 pg 27.0-31.0 [facility] HospitalObnevrzXEMCEWPMCK2825-71-18 04:57:00 Test Item Value Reference Range Interpretation Comments MCHC (test code = MCHC) 33.6 32.0-36.0 [facility] HospitalHfohpqoQRTDRVWNUN1514-84-50 04:57:00 Test Item Value Reference Range Interpretation Comments RDW (test code = RDW) 13.1 11.5-14.5 [place] [address]-08-16 04:57:00 Test Item Value Reference Range Interpretation Comments Platelet (test code = Platelet) 162 133-450 [facility] HospitalApighqdYUQGROVLDX7832-30-71 04:57:00 Test Item Value Reference Range Interpretation Comments MPV (test code = MPV) 9.8 7.4-10.4 [facility] HospitalZzmrqcmLXZSSKRTRZ0537-80-70 04:57:00 Test Item Value Reference Range Interpretation Comments Segs (test code = Segs) 79.0 45.0-75.0 [facility] HospitalLgukoylYDQDMEDTVX9501-69-76 04:57:00 Test Item Value Reference Range Interpretation Comments Lymphocytes (test code = Lymphocytes) 13.7 20.0-40.0 [place] 632290-08-16 04:57:00 Test Item Value Reference Range Interpretation Comments Monocytes (test code = Monocytes) 6.5 2.0-12.0 [place] [address]-08-16 04:57:00 Test Item Value Reference Range Interpretation Comments Eosinophils (test code = 0.5 See_Comment [A utomated message] The Eosinophils) system which ge nerated this result tra nsmitted reference range : <=4.0. The reference r annemarie was not used to int erpret this result as normal/abnormal . [place] 632290-08-16 04:57:00 Test Item Value Reference Range Interpretation Comments Basophils (test code = 0.3 See_Comment [Aut omated message] The Basophils) system which ge nerated this result tra nsmitted reference range : <=1.0. The reference r annemarie was not used to int erpret this result as normal/abnormal . [facility] AustinOpafpgcBZONPMPVVZ9041-18-86 04:57:00 Test Item Value Reference Range Interpretation Comments Neutrophils # (test code = Neutrophils 7.3 1.5-8.1 #) [facility] AustinLtsmovjPDHMVOCEEZ5462-07-41 04:57:00 Test Item Value Reference Range Interpretation Comments Lymphocytes # (test code = Lymphocytes 1.3 1.0-5.5 #) [facility] AustinZswixlhCKYDIVYPNX0734-94-10 04:57:00 Test Item Value Reference Range Interpretation Comments Monocytes # (test code 0.6 See_Comment [Aut omated message] The = Monocytes #) system which generated this result tra nsmitted reference range : <=0.8. The reference r annemarie was not used to int erpret this result as normal/abnormal . [facility] AustinAhfylvxBJTPKTOGGZ6573-17-80 04:57:00 Test Item Value Reference Range Interpretation Comments Ethanol Lvl (test code = Ethanol Lvl) no gt [facility] AustinRsbyokeXTMANXDGUY3770-56-60 04:57:00 Test Item Value Reference Range Interpretation Comments Etoh (%) (test code = Etoh (%)) no gt [facility] AustinDqhsoueMOIFYYGDBI2069-35-54 04:57:00 Test Item Value Reference Range Interpretation Comments Acetaminoph Lvl (test code (12/14/19 11:57 PM) 10-20 = Acetaminoph Lvl) [facility]viewIztgsjxOABXVGZHDU8350-09-30 04:57:00 Test Item Value Reference Range Interpretation Comments Salicylate Lvl (test 3.4 See_Comment [Autom ated message] The code = Salicylate Lvl) syste m which generated this result tra nsmitted reference range : <=30.0. The reference r annemarie was not used to int erpret this result as normal/abnormal . [facility] Cogo2020-08-16 04:57:00 Test Item Value Reference Range Interpretation Comments Glucose Lvl (test code = Glucose Lvl) 141 70-99 [facility] Cogo2020-08-16 04:57:00 Test Item Value Reference Range Interpretation Comments BUN (test code = BUN) 7 7-22 [facility] AustinIMshoppingFORMERLY [facility] CENTERHUKIQ4941-46-91 04:57:00 Test Item Value Reference Range Interpretation Comments Creatinine Lvl (test code = Creatinine 1.10 0.50-1.40 Lvl) [facility] AustinIMshoppingFORMERLY [facility] CENTERREOAC4006-88-94 04:57:00 Test Item Value Reference Range Interpretation Comments Sodium Lvl (test code = Sodium Lvl) 138 135-145 [facility] [id number] 04:57:00 Test Item Value Reference Range Interpretation Comments Potassium Lvl (test code = Potassium 3.1 3.5-5.1 Lvl) [facility] AustinIMshoppingFORMERLY [facility] CENTERCOCFT2904-85-17 04:57:00 Test Item Value Reference Range Interpretation Comments Chloride Lvl (test code = Chloride Lvl) 106 95-109 [facility] ILDYT5369-43-77 04:57:00 Test Item Value Reference Range Interpretation Comments CO2 (test code = CO2) 27 24-32 [facility] AustinIMshoppingASHLEY [place] [address]142JYGHX3252-52-81 04:57:00 Test Item Value Reference Range Interpretation Comments Calcium Lvl (test code = Calcium Lvl) 8.9 8.5-10.5 [facility] [id number] 04:57:00 Test Item Value Reference Range Interpretation Comments Albumin Lvl (test code = Albumin Lvl) 4.2 3.5-5.0 [facility] YQOLL6419-27-08 04:57:00 Test Item Value Reference Range Interpretation Comments AGAP (test code = AGAP) 8.1 10.0-20.0 [facility] [id number] 04:57:00 Test Item Value Reference Range Interpretation Comments B/C Ratio (test code = B/C Ratio) 6 1 6-25 [facility] [id number] 04:57:00 Test Item Value Reference Range Interpretation Comments eGFR (test code = eGFR) 89 [facility]2020-08-16 04:57:00 Test Item Value Reference Range Interpretation Comments Total Protein (test code = Total 7.6 6.4-8.4 Protein) [facility] YKKGH1804-57-36 04:57:00 Test Item Value Reference Range Interpretation Comments ALT (test code = ALT) 23 See_Comment [Auto mated message] The system which ge nerated this result transmit abdelrahman reference range : <=65. The reference range was not used to interpr et this result as gurpreet l/abnormal. [facility] SPYMN8925-04-27 04:57:00 Test Item Value Reference Range Interpretation Comments AST (test code = AST) 16 See_Comment [Auto mated message] The system which ge nerated this result transmit abdelrahman reference range : <=37. The reference range was not used to interpr et this result as gurpreet l/abnormal. [facility] SLZWW7381-77-04 04:57:00 Test Item Value Reference Range Interpretation Comments Alk Phos (test code = Alk Phos) 38 39-136 [facility] MPBRZ8355-56-95 04:57:00 Test Item Value Reference Range Interpretation Comments Bili Total (test code = Bili Total) 0.3 0.2-1.3 [facility] VPKBN6000-04-66 04:57:00 Test Item Value Reference Range Interpretation Comments Globulin (test code = Globulin) 3.4 2.7-4.2 [facility] [id number] 04:57:00 Test Item Value Reference Range Interpretation Comments A/G Ratio (test code = A/G Ratio) 1.2 1 0.7-1.6 [facility] LongviewTqukybySEBCJVEASV9621-92-76 04:57:00 Test Item Value Reference Range Interpretation Comments WBC (test code = WBC) 9.2 3.7-10.4 [facility] LongviewAidlnyzXGKOKWZPIU3009-80-23 04:57:00 Test Item Value Reference Range Interpretation Comments RBC (test code = RBC) 4.56 4.70-6.10 [facility] LongviewBuymrpeSZPLJLRTPI5133-91-84 04:57:00 Test Item Value Reference Range Interpretation Comments Hgb (test code = Hgb) 13.3 14.0-18.0 [facility] LongviewVcpgnvoEEZVMEIQZK9834-81-28 04:57:00 Test Item Value Reference Range Interpretation Comments Hct (test code = Hct) 39.7 42.0-54.0 [place] [address]-08-16 04:57:00 Test Item Value Reference Range Interpretation Comments MCV (test code = MCV) 87.0 80.0-94.0 [facility] LongviewJgwynycYGBJFENPQU6238-48-18 04:57:00 Test Item Value Reference Range Interpretation Comments MCH (test code = MCH) 29.2 pg 27.0-31.0 [facility] HospitalSheahhfVUEFEWHJFD3168-60-77 04:57:00 Test Item Value Reference Range Interpretation Comments MCHC (test code = MCHC) 33.6 32.0-36.0 [facility] HospitalIxlzicoJOTSUGZHHP1386-63-31 04:57:00 Test Item Value Reference Range Interpretation Comments RDW (test code = RDW) 13.1 11.5-14.5 [facility] HospitalKgptymaYDUNAZDECX7534-25-69 04:57:00 Test Item Value Reference Range Interpretation Comments Platelet (test code = Platelet) 162 133-450 [facility] HospitalQxpohoeALGJMFDFMH1228-77-93 04:57:00 Test Item Value Reference Range Interpretation Comments MPV (test code = MPV) 9.8 7.4-10.4 [facility] HospitalNdymtvsEBRZNETNBP6131-55-37 04:57:00 Test Item Value Reference Range Interpretation Comments Segs (test code = Segs) 79.0 45.0-75.0 [facility] HospitalLwtldnjIEHFRGHDSD6772-97-41 04:57:00 Test Item Value Reference Range Interpretation Comments Lymphocytes (test code = Lymphocytes) 13.7 20.0-40.0 [facility] HospitalEzzbpgqXDNVUZRDWS8501-79-24 04:57:00 Test Item Value Reference Range Interpretation Comments Monocytes (test code = Monocytes) 6.5 2.0-12.0 [facility] HospitalHervahnJXRDGYOBWN2712-15-21 04:57:00 Test Item Value Reference Range Interpretation Comments Eosinophils (test code = 0.5 See_Comment [A utomated message] The Eosinophils) system which ge nerated this result tra nsmitted reference range : <=4.0. The reference r annemarie was not used to int erpret this result as normal/abnormal . [facility] HospitalSqqtvegJSLUYEQNXJ6605-14-37 04:57:00 Test Item Value Reference Range Interpretation Comments Basophils (test code = 0.3 See_Comment [Aut omated message] The Basophils) system which ge nerated this result tra nsmitted reference range : <=1.0. The reference r annemarie was not used to int erpret this result as normal/abnormal . [facility] HospitalJwqnpauTJAKKKRNCA3225-77-94 04:57:00 Test Item Value Reference Range Interpretation Comments Neutrophils # (test code = Neutrophils 7.3 1.5-8.1 #) [facility] HospitalOddvncxYRYQNZFMNI5326-63-01 04:57:00 Test Item Value Reference Range Interpretation Comments Lymphocytes # (test code = Lymphocytes 1.3 1.0-5.5 #) [facility] HospitalLplswrgHFTTGEIJTQ4170-07-34 04:57:00 Test Item Value Reference Range Interpretation Comments Monocytes # (test code 0.6 See_Comment [Aut omated message] The = Monocytes #) system which generated this result tra nsmitted reference range : <=0.8. The reference r annemarie was not used to int erpret this result as normal/abnormal . [facility] AustinBholhneYOQAEGVOBY7559-60-72 04:57:00 Test Item Value Reference Range Interpretation Comments Ethanol Lvl (test code = Ethanol Lvl) no gt [facility]viewZaohsutXQXPRVIRVE5262-34-70 04:57:00 Test Item Value Reference Range Interpretation Comments Etoh (%) (test code = Etoh (%)) no gt [facility] AustinZckbcydQNBDBJNSTL2766-80-02 04:57:00 Test Item Value Reference Range Interpretation Comments Acetaminoph Lvl (test code (12/14/19 11:57 PM) 10-20 = Acetaminoph Lvl) [facility] LongviewLntymzcHMEUBPFWQU7159-14-94 04:57:00 Test Item Value Reference Range Interpretation Comments Salicylate Lvl (test 3.4 See_Comment [Autom ated message] The code = Salicylate Lvl) syste m which generated this result tra nsmitted reference range : <=30.0. The reference r annemarie was not used to int erpret this result as normal/abnormal . [facility]ogo2020-08-16 04:57:00 Test Item Value Reference Range Interpretation Comments Glucose Lvl (test code = Glucose Lvl) 141 70-99 [facility] [employer] UAKTG2485-72-11 04:57:00 Test Item Value Reference Range Interpretation Comments BUN (test code = BUN) 7 7-22 [facility] BTKDE6048-45-09 04:57:00 Test Item Value Reference Range Interpretation Comments Creatinine Lvl (test code = Creatinine 1.10 0.50-1.40 Lvl) [facility] [employer] OIWPZ9394-60-60 04:57:00 Test Item Value Reference Range Interpretation Comments Sodium Lvl (test code = Sodium Lvl) 138 135-145 [place] [address]-08-16 04:57:00 Test Item Value Reference Range Interpretation Comments Potassium Lvl (test code = Potassium 3.1 3.5-5.1 Lvl) [place] [address]-08-16 04:57:00 Test Item Value Reference Range Interpretation Comments Chloride Lvl (test code = Chloride Lvl) 106 95-109 [place] [address]-08-16 04:57:00 Test Item Value Reference Range Interpretation Comments CO2 (test code = CO2) 27 24-32 [place] [address]-08-16 04:57:00 Test Item Value Reference Range Interpretation Comments Calcium Lvl (test code = Calcium Lvl) 8.9 8.5-10.5 [place] [address]-08-16 04:57:00 Test Item Value Reference Range Interpretation Comments Albumin Lvl (test code = Albumin Lvl) 4.2 3.5-5.0 [place] [address]-08-16 04:57:00 Test Item Value Reference Range Interpretation Comments AGAP (test code = AGAP) 8.1 10.0-20.0 [place] [address]-08-16 04:57:00 Test Item Value Reference Range Interpretation Comments B/C Ratio (test code = B/C Ratio) 6 1 6-25 [place] [address]-08-16 04:57:00 Test Item Value Reference Range Interpretation Comments eGFR (test code = eGFR) 89 [place] [address]-08-16 04:57:00 Test Item Value Reference Range Interpretation Comments Total Protein (test code = Total 7.6 6.4-8.4 Protein) [place] [address]-08-16 04:57:00 Test Item Value Reference Range Interpretation Comments ALT (test code = ALT) 23 See_Comment [Auto mated message] The system which ge nerated this result transmit abdelrahman reference range : <=65. The reference range was not used to interpr et this result as gurpreet l/abnormal. [facility] PJKPM1836-05-11 04:57:00 Test Item Value Reference Range Interpretation Comments AST (test code = AST) 16 See_Comment [Auto mated message] The system which ge nerated this result transmit abdelrahman reference range : <=37. The reference range was not used to interpr et this result as gurpreet l/abnormal. [facility] YQFGV0517-74-56 04:57:00 Test Item Value Reference Range Interpretation Comments Alk Phos (test code = Alk Phos) 38 39-136 [facility]2020-08-16 04:57:00 Test Item Value Reference Range Interpretation Comments Bili Total (test code = Bili Total) 0.3 0.2-1.3 [facility]2020-08-16 04:57:00 Test Item Value Reference Range Interpretation Comments Globulin (test code = Globulin) 3.4 2.7-4.2 [facility] HJFVX9515-73-81 04:57:00 Test Item Value Reference Range Interpretation Comments A/G Ratio (test code = A/G Ratio) 1.2 1 0.7-1.6 [place] [address]-08-16 04:57:00 Test Item Value Reference Range Interpretation Comments WBC (test code = WBC) 9.2 3.7-10.4 [place] [address]-08-16 04:57:00 Test Item Value Reference Range Interpretation Comments RBC (test code = RBC) 4.56 4.70-6.10 [facility]viewQorerlbBANUNWOKGT1206-42-68 04:57:00 Test Item Value Reference Range Interpretation Comments Hgb (test code = Hgb) 13.3 14.0-18.0 [place] [address]-08-16 04:57:00 Test Item Value Reference Range Interpretation Comments Hct (test code = Hct) 39.7 42.0-54.0 [facility] LongviewMjnpnxaUGCKUBDGPG4037-40-78 04:57:00 Test Item Value Reference Range Interpretation Comments MCV (test code = MCV) 87.0 80.0-94.0 [place] [address]-08-16 04:57:00 Test Item Value Reference Range Interpretation Comments MCH (test code = MCH) 29.2 pg 27.0-31.0 [facility]OcotiivXEBPXIHENO0177-00-23 04:57:00 Test Item Value Reference Range Interpretation Comments MCHC (test code = MCHC) 33.6 32.0-36.0 [place] [address]-08-16 04:57:00 Test Item Value Reference Range Interpretation Comments RDW (test code = RDW) 13.1 11.5-14.5 [place] 632290-08-16 04:57:00 Test Item Value Reference Range Interpretation Comments Platelet (test code = Platelet) 162 133-450 [place] 632290-08-16 04:57:00 Test Item Value Reference Range Interpretation Comments MPV (test code = MPV) 9.8 7.4-10.4 [place] 632290-08-16 04:57:00 Test Item Value Reference Range Interpretation Comments Segs (test code = Segs) 79.0 45.0-75.0 [place] 632290-08-16 04:57:00 Test Item Value Reference Range Interpretation Comments Lymphocytes (test code = Lymphocytes) 13.7 20.0-40.0 [place] 632290-08-16 04:57:00 Test Item Value Reference Range Interpretation Comments Monocytes (test code = Monocytes) 6.5 2.0-12.0 [facility] HospitalWtbertmGYQKGYQAEB0284-15-09 04:57:00 Test Item Value Reference Range Interpretation Comments Eosinophils (test code = 0.5 See_Comment [A utomated message] The Eosinophils) system which ge nerated this result tra nsmitted reference range : <=4.0. The reference r annemarie was not used to int erpret this result as normal/abnormal . [facility] HospitalLobouqrCJRFKQJAEM3790-20-90 04:57:00 Test Item Value Reference Range Interpretation Comments Basophils (test code = 0.3 See_Comment [Aut omated message] The Basophils) system which ge nerated this result tra nsmitted reference range : <=1.0. The reference r annemarie was not used to int erpret this result as normal/abnormal . [facility] HospitalNgzitfzZTFOKQHKBB0293-33-32 04:57:00 Test Item Value Reference Range Interpretation Comments Neutrophils # (test code = Neutrophils 7.3 1.5-8.1 #) [place] 632290-08-16 04:57:00 Test Item Value Reference Range Interpretation Comments Lymphocytes # (test code = Lymphocytes 1.3 1.0-5.5 #) [facility] HospitalDqeiawqFILSQWVZCE0877-96-98 04:57:00 Test Item Value Reference Range Interpretation Comments Monocytes # (test code 0.6 See_Comment [Aut omated message] The = Monocytes #) system which generated this result tra nsmitted reference range : <=0.8. The reference r annemarie was not used to int erpret this result as normal/abnormal . [facility] AustinVglxpjmTFOHZNHRQV8490-70-64 04:57:00 Test Item Value Reference Range Interpretation Comments Ethanol Lvl (test code = Ethanol Lvl) no gt [facility] AustinEjovrxwGNLWMHGJHD6884-86-87 04:57:00 Test Item Value Reference Range Interpretation Comments Etoh (%) (test code = Etoh (%)) no gt [facility] AustinTcxshccJYGETSSGWI0446-08-34 04:57:00 Test Item Value Reference Range Interpretation Comments Acetaminoph Lvl (test code (12/14/19 11:57 PM) 10-20 = Acetaminoph Lvl) [facility]RkgvzjgFMVCJYOBHI5759-65-52 04:57:00 Test Item Value Reference Range Interpretation Comments Salicylate Lvl (test 3.4 See_Comment [Autom ated message] The code = Salicylate Lvl) syste m which generated this result tra nsmitted reference range : <=30.0. The reference r annemarie was not used to int erpret this result as normal/abnormal . [facility] AustinDpeslgmXHYGXWJPDK0403-40-85 13:17:00 Test Item Value Reference Range Interpretation Comments Lymphocytes (test code = Lymphocytes) 12.9 20.0-40.0 [facility] HospitalPnufzrrJRZWIDKNIA9632-58-64 13:17:00 Test Item Value Reference Range Interpretation Comments Salicylate Lvl (test no gt See_Comment [Autom ated message] The code = Salicylate Lvl) syste m which generated this result tra nsmitted reference range : <=30.0. The reference r annemarie was not used to int erpret this result as normal/abnormal . [facility] AustinXvldsfcCVYIAGOPZD3150-15-64 13:17:00 Test Item Value Reference Range Interpretation Comments Acetaminoph Lvl (test code = 3 10-20 Acetaminoph Lvl) [facility] AustinannCARDIAC KLYWLRK7022-72-33 13:17:00 Test Item Value Reference Range Interpretation Comments Total CK (test code = Total CK) 815 12-191 [facility] AustinHormhyhLNSHHZALKRKL9411-31-41 13:17:00 Test Item Value Reference Range Interpretation Comments AGAP (test code = AGAP) 14.8 10.0-20.0 [facility]OylodltUOCRDWHNOFOT5584-68-29 13:17:00 Test Item Value Reference Range Interpretation Comments eGFR (test code = eGFR) 93 [facility] HospitalMrtviczOEZKGSTUNOYP7368-21-98 13:17:00 Test Item Value Reference Range Interpretation Comments Creatinine Lvl (test code = Creatinine 1.07 0.50-1.40 Lvl) [facility] HospitalAzpypogSVDCIKXJJJMP4185-57-29 13:17:00 Test Item Value Reference Range Interpretation Comments Sodium Lvl (test code = Sodium Lvl) 135 135-145 [facility] HospitalSjuithyXRBDBTQVFIKO3060-05-49 13:17:00 Test Item Value Reference Range Interpretation Comments Potassium Lvl (test code = Potassium 3.8 3.5-5.1 Lvl) [facility] HospitalOqxwxnjYWBFVLSGRSET6228-74-70 13:17:00 Test Item Value Reference Range Interpretation Comments Calcium Lvl (test code = Calcium Lvl) 9.3 8.5-10.5 [facility] HospitalXzecatqMVQXHBDKNBPT2107-89-52 13:17:00 Test Item Value Reference Range Interpretation Comments CO2 (test code = CO2) 23 24-32 [facility] HospitalTorrmtnELHUBREDPXYG3827-76-72 13:17:00 Test Item Value Reference Range Interpretation Comments Chloride Lvl (test code = Chloride Lvl) 101 95-109 [facility] HospitalNallmdlFRMLRJERWLIS8331-54-94 13:17:00 Test Item Value Reference Range Interpretation Comments Glucose Lvl (test code = Glucose Lvl) 94 70-99 [facility]FmsilvzIXBIXSCMTBUL9541-26-12 13:17:00 Test Item Value Reference Range Interpretation Comments BUN (test code = BUN) 17 7-22 [facility] HospitalCvdvuclVBSAXWHPEC7601-87-47 13:17:00 Test Item Value Reference Range Interpretation Comments MCHC (test code = MCHC) 33.6 32.0-36.0 [facility] HospitalUykiwneCMYDUKHOXW4702-75-42 13:17:00 Test Item Value Reference Range Interpretation Comments RDW (test code = RDW) 14.7 11.5-14.5 [facility] HospitalDhimeavNTPDTPDAJI7208-93-96 13:17:00 Test Item Value Reference Range Interpretation Comments MCH (test code = MCH) 27.9 pg 27.0-31.0 [facility] HospitalUihilrbQBIFMHHDOC0827-19-64 13:17:00 Test Item Value Reference Range Interpretation Comments MCV (test code = MCV) 83.1 80.0-94.0 [facility] HospitalDudamytXKZUPZNWZL4021-21-20 13:17:00 Test Item Value Reference Range Interpretation Comments MPV (test code = MPV) 9.9 7.4-10.4 [place] 356078-12-19 13:17:00 Test Item Value Reference Range Interpretation Comments Platelet (test code = Platelet) 165 133-450 [facility] HospitalYnjcrgpUOYRJJDMWH2544-67-90 13:17:00 Test Item Value Reference Range Interpretation Comments RBC (test code = RBC) 4.63 4.70-6.10 [facility] HospitalQwfjxdaONYYCXYYIX9539-63-86 13:17:00 Test Item Value Reference Range Interpretation Comments Hgb (test code = Hgb) 12.9 14.0-18.0 [facility] HospitalMgggynwDTCWONGXMX8786-57-09 13:17:00 Test Item Value Reference Range Interpretation Comments Hct (test code = Hct) 38.4 42.0-54.0 [facility] HospitalAhtjzisLECAQJMYML5739-91-62 13:17:00 Test Item Value Reference Range Interpretation Comments WBC (test code = WBC) 8.2 3.7-10.4 [facility] HospitalKgsompvQVINQFGABR6562-21-13 13:17:00 Test Item Value Reference Range Interpretation Comments Monocytes # (test code 0.9 See_Comment [Aut omated message] The = Monocytes #) system which generated this result tra nsmitted reference range : <=0.8. The reference r annemarie was not used to int erpret this result as normal/abnormal . [facility] HospitalEwyqcroBHCULNDNSM3060-29-35 13:17:00 Test Item Value Reference Range Interpretation Comments Eosinophils # (test code 0.1 See_Comment [A utomated message] The = Eosinophils #) system whic h generated this result tra nsmitted reference range : <=0.5. The reference r annemarie was not used to int erpret this result as normal/abnormal . [facility] HospitalSajiqprHRLVHJXDTY4622-26-92 13:17:00 Test Item Value Reference Range Interpretation Comments Lymphocytes # (test code = Lymphocytes 1.1 1.0-5.5 #) [facility] HospitalCsxiztvTTVJGAFZGI7627-06-59 13:17:00 Test Item Value Reference Range Interpretation Comments Neutrophils # (test code = Neutrophils 6.1 1.5-8.1 #) [facility]GlxznzzBAOUOXDFZT1480-28-14 13:17:00 Test Item Value Reference Range Interpretation Comments Monocytes (test code = Monocytes) 11.1 2.0-12.0 [facility] HospitalItzlyloFKIPIWXXDF3854-68-97 13:17:00 Test Item Value Reference Range Interpretation Comments Eosinophils (test code = 0.9 See_Comment [A utomated message] The Eosinophils) system which ge nerated this result tra nsmitted reference range : <=4.0. The reference r annemarie was not used to int erpret this result as normal/abnormal . [facility] HospitalCgurhyfLSCXMFQUXS6165-29-40 13:17:00 Test Item Value Reference Range Interpretation Comments Basophils (test code = 0.2 See_Comment [Aut omated message] The Basophils) system which ge nerated this result tra nsmitted reference range : <=1.0. The reference r annemarie was not used to int erpret this result as normal/abnormal . [facility] HospitalKwqbkujPUMBMAEDBG6080-27-88 13:17:00 Test Item Value Reference Range Interpretation Comments Segs (test code = Segs) 74.9 45.0-75.0 [facility] HospitalFwtmsgqTIJVHDBJPC3797-37-95 13:17:00 Test Item Value Reference Range Interpretation Comments Lymphocytes (test code = Lymphocytes) 12.9 20.0-40.0 [facility]ZfzxtffHLMBXRWAKS4088-54-89 13:17:00 Test Item Value Reference Range Interpretation Comments Salicylate Lvl (test no gt See_Comment [Autom ated message] The code = Salicylate Lvl) syste m which generated this result tra nsmitted reference range : <=30.0. The reference r annemarie was not used to int erpret this result as normal/abnormal . [facility]FcpzmosFLXZYDVTLM2889-61-05 13:17:00 Test Item Value Reference Range Interpretation Comments Acetaminoph Lvl (test code = 3 10-20 Acetaminoph Lvl) [facility]ARD[facility] AIKRVZK9326-53-16 13:17:00 Test Item Value Reference Range Interpretation Comments Total CK (test code = Total CK) 815 12-191 [facility] AustinYnpbtblSJVHKYXSGWGG6254-54-84 13:17:00 Test Item Value Reference Range Interpretation Comments AGAP (test code = AGAP) 14.8 10.0-20.0 [facility] HospitalHmpcupfENBAAAIKOCIA3631-99-40 13:17:00 Test Item Value Reference Range Interpretation Comments eGFR (test code = eGFR) 93 [facility] HospitalVxnocjhIYHCFPQDSSQQ3699-80-96 13:17:00 Test Item Value Reference Range Interpretation Comments Creatinine Lvl (test code = Creatinine 1.07 0.50-1.40 Lvl) [facility] HospitalFznxorkIQIYHTBIFJGB8469-80-87 13:17:00 Test Item Value Reference Range Interpretation Comments Sodium Lvl (test code = Sodium Lvl) 135 135-145 [facility] HospitalYnpozwbXPYUOAHQBVFS5567-51-39 13:17:00 Test Item Value Reference Range Interpretation Comments Potassium Lvl (test code = Potassium 3.8 3.5-5.1 Lvl) [facility] HospitalJvpyivyPVQAMXMZCYOD3392-31-58 13:17:00 Test Item Value Reference Range Interpretation Comments Calcium Lvl (test code = Calcium Lvl) 9.3 8.5-10.5 [facility] HospitalLmhphjrSRPZCASKRINF8668-65-43 13:17:00 Test Item Value Reference Range Interpretation Comments CO2 (test code = CO2) 23 24-32 [facility] HospitalLzovxorTCUXMDXFFMLO2184-01-66 13:17:00 Test Item Value Reference Range Interpretation Comments Chloride Lvl (test code = Chloride Lvl) 101 95-109 [facility] HospitalNgagzujXVFWMIPSPJRQ3628-61-00 13:17:00 Test Item Value Reference Range Interpretation Comments Glucose Lvl (test code = Glucose Lvl) 94 70-99 [facility] HospitalDncgrgwCTBCGZBUNULZ8056-03-60 13:17:00 Test Item Value Reference Range Interpretation Comments BUN (test code = BUN) 17 7-22 [facility] HospitalDvjagguRMYXOMMYUJ8372-43-41 13:17:00 Test Item Value Reference Range Interpretation Comments MCHC (test code = MCHC) 33.6 32.0-36.0 [facility] HospitalFdwyjboOFBVWJFZUP3758-99-21 13:17:00 Test Item Value Reference Range Interpretation Comments RDW (test code = RDW) 14.7 11.5-14.5 [facility] HospitalMgwpzavGPLZCUOSXY5141-23-45 13:17:00 Test Item Value Reference Range Interpretation Comments MCH (test code = MCH) 27.9 pg 27.0-31.0 [place] 356078-12-19 13:17:00 Test Item Value Reference Range Interpretation Comments MCV (test code = MCV) 83.1 80.0-94.0 [facility] HospitalYrjdqgtSFJXZHIQWT8933-38-75 13:17:00 Test Item Value Reference Range Interpretation Comments MPV (test code = MPV) 9.9 7.4-10.4 [place] 356078-12-19 13:17:00 Test Item Value Reference Range Interpretation Comments Platelet (test code = Platelet) 165 133-450 [facility] HospitalUgdxavhLTRVTGWZPX5546-02-79 13:17:00 Test Item Value Reference Range Interpretation Comments RBC (test code = RBC) 4.63 4.70-6.10 [facility] HospitalMdrxxwdQYREOFZWQQ6070-80-04 13:17:00 Test Item Value Reference Range Interpretation Comments Hgb (test code = Hgb) 12.9 14.0-18.0 [facility] HospitalJhajyxaYTETSXICAE3983-85-08 13:17:00 Test Item Value Reference Range Interpretation Comments Hct (test code = Hct) 38.4 42.0-54.0 [facility] HospitalExodeztFKCKHISALV2903-69-27 13:17:00 Test Item Value Reference Range Interpretation Comments WBC (test code = WBC) 8.2 3.7-10.4 [facility] HospitalNtklhhdJXCSXHFVSS8065-72-43 13:17:00 Test Item Value Reference Range Interpretation Comments Monocytes # (test code 0.9 See_Comment [Aut omated message] The = Monocytes #) system which generated this result tra nsmitted reference range : <=0.8. The reference r annemarie was not used to int erpret this result as normal/abnormal . [facility] HospitalVkgingyUHBQWXMRAE0507-51-07 13:17:00 Test Item Value Reference Range Interpretation Comments Eosinophils # (test code 0.1 See_Comment [A utomated message] The = Eosinophils #) system whic h generated this result tra nsmitted reference range : <=0.5. The reference r annemarie was not used to int erpret this result as normal/abnormal . [place] 356078-12-19 13:17:00 Test Item Value Reference Range Interpretation Comments Lymphocytes # (test code = Lymphocytes 1.1 1.0-5.5 #) [facility] HospitalPheilhmTZKEVFIMID7784-67-21 13:17:00 Test Item Value Reference Range Interpretation Comments Neutrophils # (test code = Neutrophils 6.1 1.5-8.1 #) [facility]IutfpriIUJFTMAFGC8813-04-70 13:17:00 Test Item Value Reference Range Interpretation Comments Monocytes (test code = Monocytes) 11.1 2.0-12.0 [facility] HospitalIvrqmpeHDSYCOPSOW5659-82-38 13:17:00 Test Item Value Reference Range Interpretation Comments Eosinophils (test code = 0.9 See_Comment [A utomated message] The Eosinophils) system which ge nerated this result tra nsmitted reference range : <=4.0. The reference r annemarie was not used to int erpret this result as normal/abnormal . [facility] HospitalZpgcpcrIQHSTNKOWI4008-72-35 13:17:00 Test Item Value Reference Range Interpretation Comments Basophils (test code = 0.2 See_Comment [Aut omated message] The Basophils) system which ge nerated this result tra nsmitted reference range : <=1.0. The reference r annemarie was not used to int erpret this result as normal/abnormal . [facility] HospitalZseeoabCBCVQUVGOY9751-66-42 13:17:00 Test Item Value Reference Range Interpretation Comments Segs (test code = Segs) 74.9 45.0-75.0 [facility] HospitalIpaovhoBIIOHDSYUG7192-21-04 13:17:00 Test Item Value Reference Range Interpretation Comments Lymphocytes (test code = Lymphocytes) 12.9 20.0-40.0 [facility] HospitalAirwcvzLJVXCWBNON5639-35-68 13:17:00 Test Item Value Reference Range Interpretation Comments Salicylate Lvl (test no gt See_Comment [Autom ated message] The code = Salicylate Lvl) syste m which generated this result tra nsmitted reference range : <=30.0. The reference r annemarie was not used to int erpret this result as normal/abnormal . [facility]CrwfczqIWYPKPNBGW8063-46-98 13:17:00 Test Item Value Reference Range Interpretation Comments Acetaminoph Lvl (test code = 3 10-20 Acetaminoph Lvl) [facility] EEZRRCG1635-72-91 13:17:00 Test Item Value Reference Range Interpretation Comments Total CK (test code = Total CK) 815 12-191 [facility] AustinEhcmbukIOIZZBTVOAEI0539-96-57 13:17:00 Test Item Value Reference Range Interpretation Comments AGAP (test code = AGAP) 14.8 10.0-20.0 [facility] HospitalYkffvbuZAFQNKGZOLQA1413-94-60 13:17:00 Test Item Value Reference Range Interpretation Comments eGFR (test code = eGFR) 93 [facility] HospitalOfqbllsUWAXWOMOMWSJ9117-34-19 13:17:00 Test Item Value Reference Range Interpretation Comments Creatinine Lvl (test code = Creatinine 1.07 0.50-1.40 Lvl) [facility] HospitalQpzshdzGUETUFUHTRCQ7614-88-29 13:17:00 Test Item Value Reference Range Interpretation Comments Sodium Lvl (test code = Sodium Lvl) 135 135-145 [facility] HospitalMrsojeyRIBUVUKUDPXU2202-70-36 13:17:00 Test Item Value Reference Range Interpretation Comments Potassium Lvl (test code = Potassium 3.8 3.5-5.1 Lvl) [facility] HospitalMompnxmEPKGQZCDYTDX0330-76-09 13:17:00 Test Item Value Reference Range Interpretation Comments Calcium Lvl (test code = Calcium Lvl) 9.3 8.5-10.5 [facility] HospitalJatumhyEFKSHCOLRLZB4062-62-55 13:17:00 Test Item Value Reference Range Interpretation Comments CO2 (test code = CO2) 23 24-32 [facility] HospitalKxbkbdtXQJXDIEPYBIT3869-49-56 13:17:00 Test Item Value Reference Range Interpretation Comments Chloride Lvl (test code = Chloride Lvl) 101 95-109 [facility] HospitalLfoaaykAEWMAWFTDEFZ1954-23-78 13:17:00 Test Item Value Reference Range Interpretation Comments Glucose Lvl (test code = Glucose Lvl) 94 70-99 [facility] HospitalXgnyhzgDHYLDVNYCBGC8881-01-30 13:17:00 Test Item Value Reference Range Interpretation Comments BUN (test code = BUN) 17 7-22 [facility] HospitalBklxprtSBRPDVWADH0220-19-31 13:17:00 Test Item Value Reference Range Interpretation Comments MCHC (test code = MCHC) 33.6 32.0-36.0 [facility] HospitalVdlqtmwWLMUPOYNTB2898-05-92 13:17:00 Test Item Value Reference Range Interpretation Comments RDW (test code = RDW) 14.7 11.5-14.5 [facility] HospitalOukvmfjVSBRJTLZOD8094-92-16 13:17:00 Test Item Value Reference Range Interpretation Comments MCH (test code = MCH) 27.9 pg 27.0-31.0 [facility] HospitalYbnhlqjHBJCJMNCON3844-98-40 13:17:00 Test Item Value Reference Range Interpretation Comments MCV (test code = MCV) 83.1 80.0-94.0 [facility] HospitalRmxtbfjCQVUZORVZM7606-18-64 13:17:00 Test Item Value Reference Range Interpretation Comments MPV (test code = MPV) 9.9 7.4-10.4 [facility] HospitalIzhuvcyUXGCJUPSWB4111-42-00 13:17:00 Test Item Value Reference Range Interpretation Comments Platelet (test code = Platelet) 165 133-450 [facility] HospitalBjbfgixQNNXILRJUV8132-99-08 13:17:00 Test Item Value Reference Range Interpretation Comments RBC (test code = RBC) 4.63 4.70-6.10 [facility] HospitalPsjfeyuKQCGXHKBCU9202-39-88 13:17:00 Test Item Value Reference Range Interpretation Comments Hgb (test code = Hgb) 12.9 14.0-18.0 [facility] HospitalOzpqwqwPBAISDAGBX4348-02-63 13:17:00 Test Item Value Reference Range Interpretation Comments Hct (test code = Hct) 38.4 42.0-54.0 [facility] HospitalUvjtohfMWDVKYACMN6667-67-19 13:17:00 Test Item Value Reference Range Interpretation Comments WBC (test code = WBC) 8.2 3.7-10.4 [facility] HospitalCccycxmIJSZEACROI0704-74-72 13:17:00 Test Item Value Reference Range Interpretation Comments Monocytes # (test code 0.9 See_Comment [Aut omated message] The = Monocytes #) system which generated this result tra nsmitted reference range : <=0.8. The reference r annemarie was not used to int erpret this result as normal/abnormal . [facility] HospitalHfyhafxHJCLDXNOAE0663-93-25 13:17:00 Test Item Value Reference Range Interpretation Comments Eosinophils # (test code 0.1 See_Comment [A utomated message] The = Eosinophils #) system whic h generated this result tra nsmitted reference range : <=0.5. The reference r annemarie was not used to int erpret this result as normal/abnormal . [facility] HospitalDqicmooLPYPJMZVKR5047-98-44 13:17:00 Test Item Value Reference Range Interpretation Comments Lymphocytes # (test code = Lymphocytes 1.1 1.0-5.5 #) [place] 356078-12-19 13:17:00 Test Item Value Reference Range Interpretation Comments Neutrophils # (test code = Neutrophils 6.1 1.5-8.1 #) [facility] HospitalCppulsaPOBYRWVLGZ0280-11-83 13:17:00 Test Item Value Reference Range Interpretation Comments Monocytes (test code = Monocytes) 11.1 2.0-12.0 [facility] HospitalGhgzdupIICHMOCPIW4184-38-62 13:17:00 Test Item Value Reference Range Interpretation Comments Eosinophils (test code = 0.9 See_Comment [A utomated message] The Eosinophils) system which ge nerated this result tra nsmitted reference range : <=4.0. The reference r annemarie was not used to int erpret this result as normal/abnormal . [facility] HospitalRtztqszUZDAWDULGB0724-24-14 13:17:00 Test Item Value Reference Range Interpretation Comments Basophils (test code = 0.2 See_Comment [Aut omated message] The Basophils) system which ge nerated this result tra nsmitted reference range : <=1.0. The reference r annemarie was not used to int erpret this result as normal/abnormal . [facility] HospitalBwfkcieUYJQGCMDZY3464-88-01 13:17:00 Test Item Value Reference Range Interpretation Comments Segs (test code = Segs) 74.9 45.0-75.0 [facility] HospitalEyzuhcpBFAJWCNKVQ5743-26-25 13:17:00 Test Item Value Reference Range Interpretation Comments Lymphocytes (test code = Lymphocytes) 12.9 20.0-40.0 [facility] HoustonBprpppvPHPAJXIAFH6668-92-21 13:17:00 Test Item Value Reference Range Interpretation Comments Salicylate Lvl (test no gt See_Comment [Autom ated message] The code = Salicylate Lvl) syste m which generated this result tra nsmitted reference range : <=30.0. The reference r annemarie was not used to int erpret this result as normal/abnormal . [facility]KmjtymdRVQHOGUJRY8187-11-64 13:17:00 Test Item Value Reference Range Interpretation Comments Acetaminoph Lvl (test code = 3 10-20 Acetaminoph Lvl) [facility]ARD[facility] KKPKAFK3670-88-32 13:17:00 Test Item Value Reference Range Interpretation Comments Total CK (test code = Total CK) 815 12-191 [facility] AustinVumzaiqIMUYJOHHJVGC7801-13-19 13:17:00 Test Item Value Reference Range Interpretation Comments AGAP (test code = AGAP) 14.8 10.0-20.0 [facility] HospitalFyepyzfRZCWWFKLSITB3444-90-80 13:17:00 Test Item Value Reference Range Interpretation Comments eGFR (test code = eGFR) 93 [facility] HospitalLlvnzfxHNRTITPXBWQU3624-27-46 13:17:00 Test Item Value Reference Range Interpretation Comments Creatinine Lvl (test code = Creatinine 1.07 0.50-1.40 Lvl) [facility] HospitalDrivputZQNHIZFEGAQW4586-12-90 13:17:00 Test Item Value Reference Range Interpretation Comments Sodium Lvl (test code = Sodium Lvl) 135 135-145 [facility] HospitalJghorfiYWZOKCLNUXKJ5609-57-39 13:17:00 Test Item Value Reference Range Interpretation Comments Potassium Lvl (test code = Potassium 3.8 3.5-5.1 Lvl) [facility] HospitalAbybdbaRNPSAMDOQDIU5489-71-82 13:17:00 Test Item Value Reference Range Interpretation Comments Calcium Lvl (test code = Calcium Lvl) 9.3 8.5-10.5 [facility] HospitalNvorhbwMRBTTKSEWRDE4891-52-32 13:17:00 Test Item Value Reference Range Interpretation Comments CO2 (test code = CO2) 23 24-32 [facility] HospitalTnluycbDSBNPUWQRCRK2089-01-67 13:17:00 Test Item Value Reference Range Interpretation Comments Chloride Lvl (test code = Chloride Lvl) 101 95-109 [facility] HospitalVznuqfuQKOUIGMZBTMQ3234-53-77 13:17:00 Test Item Value Reference Range Interpretation Comments Glucose Lvl (test code = Glucose Lvl) 94 70-99 [facility] HospitalBnykdjkSMSMIHWRLOXQ6728-27-01 13:17:00 Test Item Value Reference Range Interpretation Comments BUN (test code = BUN) 17 7-22 [facility] HospitalFudofjmSIOROHLHUH8340-34-53 13:17:00 Test Item Value Reference Range Interpretation Comments MCHC (test code = MCHC) 33.6 32.0-36.0 [facility] HospitalMavrwebWFFVIWLWSI9307-51-89 13:17:00 Test Item Value Reference Range Interpretation Comments RDW (test code = RDW) 14.7 11.5-14.5 [facility] HospitalAzrxhoxDEPUVNPPZQ8098-51-87 13:17:00 Test Item Value Reference Range Interpretation Comments MCH (test code = MCH) 27.9 pg 27.0-31.0 [facility] HospitalDzpwswkOIKDUMVZRS7128-16-77 13:17:00 Test Item Value Reference Range Interpretation Comments MCV (test code = MCV) 83.1 80.0-94.0 [facility] HospitalGavdcpjIKMHYCDTNU7236-09-85 13:17:00 Test Item Value Reference Range Interpretation Comments MPV (test code = MPV) 9.9 7.4-10.4 [facility] HospitalOqdbrrtNQHTPFIBTK1985-85-06 13:17:00 Test Item Value Reference Range Interpretation Comments Platelet (test code = Platelet) 165 133-450 [facility] HospitalUfntxevADMINKAGZO0942-32-54 13:17:00 Test Item Value Reference Range Interpretation Comments RBC (test code = RBC) 4.63 4.70-6.10 [facility] HospitalYkabwptSKRCCPFFBL8749-74-81 13:17:00 Test Item Value Reference Range Interpretation Comments Hgb (test code = Hgb) 12.9 14.0-18.0 [facility] HospitalSzqfrnnZZCFAFKXAT3862-81-91 13:17:00 Test Item Value Reference Range Interpretation Comments Hct (test code = Hct) 38.4 42.0-54.0 [facility] HospitalQekspnsTPYEBZFVUP0978-54-22 13:17:00 Test Item Value Reference Range Interpretation Comments WBC (test code = WBC) 8.2 3.7-10.4 [facility] HospitalZzybcyjCBQPBHIGDJ1005-99-90 13:17:00 Test Item Value Reference Range Interpretation Comments Monocytes # (test code 0.9 See_Comment [Aut omated message] The = Monocytes #) system which generated this result tra nsmitted reference range : <=0.8. The reference r annemarie was not used to int erpret this result as normal/abnormal . [facility] HospitalGxsvczaPQAUSOSNCG9970-45-84 13:17:00 Test Item Value Reference Range Interpretation Comments Eosinophils # (test code 0.1 See_Comment [A utomated message] The = Eosinophils #) system whic h generated this result tra nsmitted reference range : <=0.5. The reference r annemarie was not used to int erpret this result as normal/abnormal . [facility] HospitalDnkxjquOEOEHQQIRW9891-70-11 13:17:00 Test Item Value Reference Range Interpretation Comments Lymphocytes # (test code = Lymphocytes 1.1 1.0-5.5 #) [facility] HospitalKiwealmZZTOJFWARD4029-94-54 13:17:00 Test Item Value Reference Range Interpretation Comments Neutrophils # (test code = Neutrophils 6.1 1.5-8.1 #) [facility] HospitalFugcrjtXHWFPMBDLO5626-42-82 13:17:00 Test Item Value Reference Range Interpretation Comments Monocytes (test code = Monocytes) 11.1 2.0-12.0 [facility] HospitalTknkixhKDOENVUEVZ9777-93-61 13:17:00 Test Item Value Reference Range Interpretation Comments Eosinophils (test code = 0.9 See_Comment [A utomated message] The Eosinophils) system which ge nerated this result tra nsmitted reference range : <=4.0. The reference r annemarie was not used to int erpret this result as normal/abnormal . [facility] HospitalHpeiivpQZTLMQMSCF0559-61-72 13:17:00 Test Item Value Reference Range Interpretation Comments Basophils (test code = 0.2 See_Comment [Aut omated message] The Basophils) system which ge nerated this result tra nsmitted reference range : <=1.0. The reference r annemarie was not used to int erpret this result as normal/abnormal . [facility] HospitalWqipewhUAHCSPCQNX1940-97-00 13:17:00 Test Item Value Reference Range Interpretation Comments Segs (test code = Segs) 74.9 45.0-75.0 [facility] HospitalXdodrqmTYVSGMFYBZ3772-39-26 13:17:00 Test Item Value Reference Range Interpretation Comments Lymphocytes (test code = Lymphocytes) 12.9 20.0-40.0 [facility]WvuwhcoHLULZRSHLZ3840-38-91 13:17:00 Test Item Value Reference Range Interpretation Comments Salicylate Lvl (test no gt See_Comment [Autom ated message] The code = Salicylate Lvl) syste m which generated this result tra nsmitted reference range : <=30.0. The reference r annemarie was not used to int erpret this result as normal/abnormal . [facility]WxirwmhHWPPVIWCRU4961-30-45 13:17:00 Test Item Value Reference Range Interpretation Comments Acetaminoph Lvl (test code = 3 10-20 Acetaminoph Lvl) [facility] ORCMSZQ5540-89-74 13:17:00 Test Item Value Reference Range Interpretation Comments Total CK (test code = Total CK) 815 12-191 [facility]WuclkfkRRZYSZSADZOG4854-55-26 13:17:00 Test Item Value Reference Range Interpretation Comments AGAP (test code = AGAP) 14.8 10.0-20.0 [facility] HospitalKkeyzukWGLLXSVFMNGD1169-81-13 13:17:00 Test Item Value Reference Range Interpretation Comments eGFR (test code = eGFR) 93 [facility] HospitalPujhwpvICEGYTDKGWOU6944-85-79 13:17:00 Test Item Value Reference Range Interpretation Comments Creatinine Lvl (test code = Creatinine 1.07 0.50-1.40 Lvl) [facility] HospitalBqoghylGXKGPBTEEHOO2796-34-35 13:17:00 Test Item Value Reference Range Interpretation Comments Sodium Lvl (test code = Sodium Lvl) 135 135-145 [facility] HospitalRwxtgcxCBPKZOYWUOLX5476-49-20 13:17:00 Test Item Value Reference Range Interpretation Comments Potassium Lvl (test code = Potassium 3.8 3.5-5.1 Lvl) [facility] HospitalDnyatosECGFSCDVGLXB7041-77-52 13:17:00 Test Item Value Reference Range Interpretation Comments Calcium Lvl (test code = Calcium Lvl) 9.3 8.5-10.5 [facility] HospitalEaoiblmCEWNNQKYUMGC4933-78-83 13:17:00 Test Item Value Reference Range Interpretation Comments CO2 (test code = CO2) 23 24-32 [facility] HospitalZhbtqfaCPYTJQRIAXVY4383-24-66 13:17:00 Test Item Value Reference Range Interpretation Comments Chloride Lvl (test code = Chloride Lvl) 101 95-109 [facility] HospitalJiikydyICQEHQFUECWT0132-61-64 13:17:00 Test Item Value Reference Range Interpretation Comments Glucose Lvl (test code = Glucose Lvl) 94 70-99 [facility] HospitalEurkjvuGHNFRHMSMCIK0245-64-33 13:17:00 Test Item Value Reference Range Interpretation Comments BUN (test code = BUN) 17 7-22 [facility] HospitalHesautrLESYCPZXTN8566-87-01 13:17:00 Test Item Value Reference Range Interpretation Comments MCHC (test code = MCHC) 33.6 32.0-36.0 [facility] HospitalNbgraiaXYFRBAXFJV3239-52-92 13:17:00 Test Item Value Reference Range Interpretation Comments RDW (test code = RDW) 14.7 11.5-14.5 [facility] HospitalZdyizouJLSXMCOWED4675-59-02 13:17:00 Test Item Value Reference Range Interpretation Comments MCH (test code = MCH) 27.9 pg 27.0-31.0 [facility] HospitalYawscalMHORYKXQSR3893-75-64 13:17:00 Test Item Value Reference Range Interpretation Comments MCV (test code = MCV) 83.1 80.0-94.0 [place] 356078-12-19 13:17:00 Test Item Value Reference Range Interpretation Comments MPV (test code = MPV) 9.9 7.4-10.4 [facility] HospitalRfezingGZFYPLGWXV9524-73-11 13:17:00 Test Item Value Reference Range Interpretation Comments Platelet (test code = Platelet) 165 133-450 [facility] HospitalVoxgnqbYKFHODKAIQ6096-75-66 13:17:00 Test Item Value Reference Range Interpretation Comments RBC (test code = RBC) 4.63 4.70-6.10 [facility] HospitalAjisirnCOKGCQPYLM0787-73-84 13:17:00 Test Item Value Reference Range Interpretation Comments Hgb (test code = Hgb) 12.9 14.0-18.0 [facility] HospitalMbkchdqJULIHUUFTU5995-30-48 13:17:00 Test Item Value Reference Range Interpretation Comments Hct (test code = Hct) 38.4 42.0-54.0 [facility] HospitalZuyhsvbRXHTKGDYJO2828-91-09 13:17:00 Test Item Value Reference Range Interpretation Comments WBC (test code = WBC) 8.2 3.7-10.4 [facility] HospitalTtiqogiIOZKHIEXEW2192-57-21 13:17:00 Test Item Value Reference Range Interpretation Comments Monocytes # (test code 0.9 See_Comment [Aut omated message] The = Monocytes #) system which generated this result tra nsmitted reference range : <=0.8. The reference r annemarie was not used to int erpret this result as normal/abnormal . [facility] HospitalPingfdfLKKTFFLNBF9754-85-83 13:17:00 Test Item Value Reference Range Interpretation Comments Eosinophils # (test code 0.1 See_Comment [A utomated message] The = Eosinophils #) system whic h generated this result tra nsmitted reference range : <=0.5. The reference r annemarie was not used to int erpret this result as normal/abnormal . [facility] HospitalTywgtdgKSWTQDLETS7791-48-44 13:17:00 Test Item Value Reference Range Interpretation Comments Lymphocytes # (test code = Lymphocytes 1.1 1.0-5.5 #) [facility] HospitalTrktgwjKZSGPOQDSZ5813-53-74 13:17:00 Test Item Value Reference Range Interpretation Comments Neutrophils # (test code = Neutrophils 6.1 1.5-8.1 #) [facility] HospitalGjwkviyMEIVIBHXSL7514-39-24 13:17:00 Test Item Value Reference Range Interpretation Comments Monocytes (test code = Monocytes) 11.1 2.0-12.0 [facility] HospitalLlrhwdoDBUKEIQNWN9421-65-52 13:17:00 Test Item Value Reference Range Interpretation Comments Eosinophils (test code = 0.9 See_Comment [A utomated message] The Eosinophils) system which ge nerated this result tra nsmitted reference range : <=4.0. The reference r annemarie was not used to int erpret this result as normal/abnormal . [facility] HospitalUqygswkSOZJHVTJND4127-48-57 13:17:00 Test Item Value Reference Range Interpretation Comments Basophils (test code = 0.2 See_Comment [Aut omated message] The Basophils) system which ge nerated this result tra nsmitted reference range : <=1.0. The reference r annemarie was not used to int erpret this result as normal/abnormal . [facility] HospitalLegiqggTJGPHAWEVF2916-08-73 13:17:00 Test Item Value Reference Range Interpretation Comments Segs (test code = Segs) 74.9 45.0-75.0 [facility] HospitalScanlriITAJBSQCPU0283-06-84 13:17:00 Test Item Value Reference Range Interpretation Comments Lymphocytes (test code = Lymphocytes) 12.9 20.0-40.0 [place] [id number] 13:17:00 Test Item Value Reference Range Interpretation Comments Salicylate Lvl (test no gt See_Comment [Autom ated message] The code = Salicylate Lvl) syste m which generated this result tra nsmitted reference range : <=30.0. The reference r annemarie was not used to int erpret this result as normal/abnormal . [facility]BwruqujFXEZWQXRKE9311-94-89 13:17:00 Test Item Value Reference Range Interpretation Comments Acetaminoph Lvl (test code = 3 10-20 Acetaminoph Lvl) [facility]PENAZRRPFPS2641-91-06 13:17:00 Test Item Value Reference Range Interpretation Comments Total CK (test code = Total CK) 815 12-191 [facility] HospitalQpevwzmCCKQVOECGNOV5802-37-35 13:17:00 Test Item Value Reference Range Interpretation Comments AGAP (test code = AGAP) 14.8 10.0-20.0 [facility] HospitalXuzxyqjMPMZMLXAPHDI9393-59-76 13:17:00 Test Item Value Reference Range Interpretation Comments eGFR (test code = eGFR) 93 [facility] HospitalZonqrxqWZWUPTXSHETE5693-36-62 13:17:00 Test Item Value Reference Range Interpretation Comments Creatinine Lvl (test code = Creatinine 1.07 0.50-1.40 Lvl) [facility] HospitalTtbrpngMLYVXPVJWPKE1925-33-95 13:17:00 Test Item Value Reference Range Interpretation Comments Sodium Lvl (test code = Sodium Lvl) 135 135-145 [facility] HospitalTidxxbxCEDTQPKACPDT6321-06-85 13:17:00 Test Item Value Reference Range Interpretation Comments Potassium Lvl (test code = Potassium 3.8 3.5-5.1 Lvl) [facility] HospitalCpfugxoYCCQVREKZPFE9996-82-30 13:17:00 Test Item Value Reference Range Interpretation Comments Calcium Lvl (test code = Calcium Lvl) 9.3 8.5-10.5 [facility] HospitalLiiqyduVRALBRMYQQBH1280-09-83 13:17:00 Test Item Value Reference Range Interpretation Comments CO2 (test code = CO2) 23 24-32 [facility] HospitalBkqioewHUIIMDJSODMM0730-55-17 13:17:00 Test Item Value Reference Range Interpretation Comments Chloride Lvl (test code = Chloride Lvl) 101 95-109 [facility] HospitalDyxeiukSLICRRZGZKAX3914-48-66 13:17:00 Test Item Value Reference Range Interpretation Comments Glucose Lvl (test code = Glucose Lvl) 94 70-99 [facility] HospitalLthkqzaFCDIRJGUKCAJ5284-02-61 13:17:00 Test Item Value Reference Range Interpretation Comments BUN (test code = BUN) 17 7-22 [facility] HospitalErfvpkyYWHTUIYZZI0655-06-23 13:17:00 Test Item Value Reference Range Interpretation Comments MCHC (test code = MCHC) 33.6 32.0-36.0 [facility] HospitalWlwpolmGGRTUBKBRH8814-16-49 13:17:00 Test Item Value Reference Range Interpretation Comments RDW (test code = RDW) 14.7 11.5-14.5 [facility] HospitalFgmdyiaTKBBULYDRX2083-55-09 13:17:00 Test Item Value Reference Range Interpretation Comments MCH (test code = MCH) 27.9 pg 27.0-31.0 [facility] HospitalScxxowgEBWCTHAALF3186-92-86 13:17:00 Test Item Value Reference Range Interpretation Comments MCV (test code = MCV) 83.1 80.0-94.0 [place] 356078-12-19 13:17:00 Test Item Value Reference Range Interpretation Comments MPV (test code = MPV) 9.9 7.4-10.4 [facility] HospitalNqihrwwYEFQUEFHWY2951-68-06 13:17:00 Test Item Value Reference Range Interpretation Comments Platelet (test code = Platelet) 165 133-450 [facility] HospitalSuergzsFYNAHWUCTF1250-50-85 13:17:00 Test Item Value Reference Range Interpretation Comments RBC (test code = RBC) 4.63 4.70-6.10 [facility] HospitalRkwzlsqOUSOBCVCRZ8347-61-05 13:17:00 Test Item Value Reference Range Interpretation Comments Hgb (test code = Hgb) 12.9 14.0-18.0 [facility] HospitalXrghnhuIOKZHGOSMX9163-32-38 13:17:00 Test Item Value Reference Range Interpretation Comments Hct (test code = Hct) 38.4 42.0-54.0 [facility] HospitalXyyuvyeYGGSNBQSIO5811-54-81 13:17:00 Test Item Value Reference Range Interpretation Comments WBC (test code = WBC) 8.2 3.7-10.4 [facility] HospitalCrbnrohOUOAIQUOJS2951-25-83 13:17:00 Test Item Value Reference Range Interpretation Comments Monocytes # (test code 0.9 See_Comment [Aut omated message] The = Monocytes #) system which generated this result tra nsmitted reference range : <=0.8. The reference r annemarie was not used to int erpret this result as normal/abnormal . [facility] HospitalVeskntpVUOOHYMDHP7808-60-82 13:17:00 Test Item Value Reference Range Interpretation Comments Eosinophils # (test code 0.1 See_Comment [A utomated message] The = Eosinophils #) system whic h generated this result tra nsmitted reference range : <=0.5. The reference r annemarie was not used to int erpret this result as normal/abnormal . [facility] HospitalAxuklcwTYINMVKSMB6317-04-48 13:17:00 Test Item Value Reference Range Interpretation Comments Lymphocytes # (test code = Lymphocytes 1.1 1.0-5.5 #) [facility] HospitalFkhiyuaOVAYEXSHYU9671-12-04 13:17:00 Test Item Value Reference Range Interpretation Comments Neutrophils # (test code = Neutrophils 6.1 1.5-8.1 #) [facility] HospitalSgnocjoOHNWFAHYMS8031-16-50 13:17:00 Test Item Value Reference Range Interpretation Comments Monocytes (test code = Monocytes) 11.1 2.0-12.0 [facility] HospitalOwlurnyHRTAGJSVDS0921-83-82 13:17:00 Test Item Value Reference Range Interpretation Comments Eosinophils (test code = 0.9 See_Comment [A utomated message] The Eosinophils) system which ge nerated this result tra nsmitted reference range : <=4.0. The reference r annemarie was not used to int erpret this result as normal/abnormal . [facility] HospitalFvfflehSINCQLMRIM6231-80-04 13:17:00 Test Item Value Reference Range Interpretation Comments Basophils (test code = 0.2 See_Comment [Aut omated message] The Basophils) system which ge nerated this result tra nsmitted reference range : <=1.0. The reference r annemarie was not used to int erpret this result as normal/abnormal . [facility] HospitalJhsqpdnGVXYNOPFYG3653-91-85 13:17:00 Test Item Value Reference Range Interpretation Comments Segs (test code = Segs) 74.9 45.0-75.0 [facility] HospitalSiurbdsAZTCQBGMUQ2426-90-10 13:17:00 Test Item Value Reference Range Interpretation Comments Lymphocytes (test code = Lymphocytes) 12.9 20.0-40.0 [place] 85441018-12-19 13:17:00 Test Item Value Reference Range Interpretation Comments Salicylate Lvl (test no gt See_Comment [Autom ated message] The code = Salicylate Lvl) syste m which generated this result tra nsmitted reference range : <=30.0. The reference r annemarie was not used to int erpret this result as normal/abnormal . [facility] HoustonWwtbgeoTRQFXTVTOA7100-38-70 13:17:00 Test Item Value Reference Range Interpretation Comments Acetaminoph Lvl (test code = 3 10-20 Acetaminoph Lvl) [facility] FQREDYG6496-51-04 13:17:00 Test Item Value Reference Range Interpretation Comments Total CK (test code = Total CK) 815 12-191 [facility] HospitalCtgynswNNMBHETTUKZP8923-00-56 13:17:00 Test Item Value Reference Range Interpretation Comments AGAP (test code = AGAP) 14.8 10.0-20.0 [facility] HospitalXgbyypiJIRDNEBLREGN6606-47-08 13:17:00 Test Item Value Reference Range Interpretation Comments eGFR (test code = eGFR) 93 [facility] HospitalIddlcvjORAYQNEPAKMX1207-30-11 13:17:00 Test Item Value Reference Range Interpretation Comments Creatinine Lvl (test code = Creatinine 1.07 0.50-1.40 Lvl) [facility] HospitalGesnvthZSYIXWQJRZFR9408-97-68 13:17:00 Test Item Value Reference Range Interpretation Comments Sodium Lvl (test code = Sodium Lvl) 135 135-145 [facility] HospitalLslwcwxSOZMMFUZDMHI3267-64-41 13:17:00 Test Item Value Reference Range Interpretation Comments Potassium Lvl (test code = Potassium 3.8 3.5-5.1 Lvl) [facility] HospitalEsbtiklMZKBTCMPTAOT7138-35-26 13:17:00 Test Item Value Reference Range Interpretation Comments Calcium Lvl (test code = Calcium Lvl) 9.3 8.5-10.5 [facility] HospitalVasotnfBRDSUORHLELA0624-58-00 13:17:00 Test Item Value Reference Range Interpretation Comments CO2 (test code = CO2) 23 24-32 [facility] HospitalEcmfyxfOJSHCCKTXGOG2130-13-92 13:17:00 Test Item Value Reference Range Interpretation Comments Chloride Lvl (test code = Chloride Lvl) 101 95-109 [facility] HospitalZbkedriGXDOYFQLKRFW9063-30-27 13:17:00 Test Item Value Reference Range Interpretation Comments Glucose Lvl (test code = Glucose Lvl) 94 70-99 [facility] HospitalIemrhbgATRMFZGWODNG7403-24-42 13:17:00 Test Item Value Reference Range Interpretation Comments BUN (test code = BUN) 17 7-22 [facility] HospitalEgqygvtIEUALMXQNK9547-67-38 13:17:00 Test Item Value Reference Range Interpretation Comments MCHC (test code = MCHC) 33.6 32.0-36.0 [facility] HospitalDihrrwyJDVTSLRNXE0835-38-95 13:17:00 Test Item Value Reference Range Interpretation Comments RDW (test code = RDW) 14.7 11.5-14.5 [facility] HospitalAohzpkaSGDUSKKRLS9328-24-26 13:17:00 Test Item Value Reference Range Interpretation Comments MCH (test code = MCH) 27.9 pg 27.0-31.0 [facility] HospitalMcjxylvLLELCMHRNX7640-44-45 13:17:00 Test Item Value Reference Range Interpretation Comments MCV (test code = MCV) 83.1 80.0-94.0 [facility] HospitalRpruldbLTKZCMVLQZ0856-96-72 13:17:00 Test Item Value Reference Range Interpretation Comments MPV (test code = MPV) 9.9 7.4-10.4 [facility] HospitalNahwgzxEIYXINFVGD1598-78-91 13:17:00 Test Item Value Reference Range Interpretation Comments Platelet (test code = Platelet) 165 133-450 [facility] HospitalFwsufonOQRAYWRCRP8921-72-33 13:17:00 Test Item Value Reference Range Interpretation Comments RBC (test code = RBC) 4.63 4.70-6.10 [facility] HospitalEqcdvylVXAVPFDKRD6755-98-68 13:17:00 Test Item Value Reference Range Interpretation Comments Hgb (test code = Hgb) 12.9 14.0-18.0 [facility] HospitalBrtsggdDWPGSMGFJQ2065-97-18 13:17:00 Test Item Value Reference Range Interpretation Comments Hct (test code = Hct) 38.4 42.0-54.0 [facility] HospitalGiyppfqXWWAMHBXOV7593-21-71 13:17:00 Test Item Value Reference Range Interpretation Comments WBC (test code = WBC) 8.2 3.7-10.4 [facility] HospitalBwcppojZHTTJEEQEI5579-28-08 13:17:00 Test Item Value Reference Range Interpretation Comments Monocytes # (test code 0.9 See_Comment [Aut omated message] The = Monocytes #) system which generated this result tra nsmitted reference range : <=0.8. The reference r annemarie was not used to int erpret this result as normal/abnormal . [facility] HospitalFwkbevuEGNCABAQUY0409-02-32 13:17:00 Test Item Value Reference Range Interpretation Comments Eosinophils # (test code 0.1 See_Comment [A utomated message] The = Eosinophils #) system whic h generated this result tra nsmitted reference range : <=0.5. The reference r annemarie was not used to int erpret this result as normal/abnormal . [facility] HospitalJmospsjIVTYCSHLXF5302-69-59 13:17:00 Test Item Value Reference Range Interpretation Comments Lymphocytes # (test code = Lymphocytes 1.1 1.0-5.5 #) [facility] HospitalGasregmBCICFZEBSH9417-82-84 13:17:00 Test Item Value Reference Range Interpretation Comments Neutrophils # (test code = Neutrophils 6.1 1.5-8.1 #) [facility] HospitalYksfcyiVAMPEMIRGR7543-73-17 13:17:00 Test Item Value Reference Range Interpretation Comments Monocytes (test code = Monocytes) 11.1 2.0-12.0 [facility] HospitalGlsyrwxIEGCAOVCSR2239-23-63 13:17:00 Test Item Value Reference Range Interpretation Comments Eosinophils (test code = 0.9 See_Comment [A utomated message] The Eosinophils) system which ge nerated this result tra nsmitted reference range : <=4.0. The reference r annemarie was not used to int erpret this result as normal/abnormal . [facility] HospitalXgrezeiSNYTHAEUIS7180-10-73 13:17:00 Test Item Value Reference Range Interpretation Comments Basophils (test code = 0.2 See_Comment [Aut omated message] The Basophils) system which ge nerated this result tra nsmitted reference range : <=1.0. The reference r annemarie was not used to int erpret this result as normal/abnormal . [facility] HospitalEqjszxgNBNCSSQZAD4496-28-00 13:17:00 Test Item Value Reference Range Interpretation Comments Segs (test code = Segs) 74.9 45.0-75.0 [facility] HospitalBsmflwxFLJRZCUOGA4579-80-23 13:17:00 Test Item Value Reference Range Interpretation Comments Lymphocytes (test code = Lymphocytes) 12.9 20.0-40.0 [place] 85441018-12-19 13:17:00 Test Item Value Reference Range Interpretation Comments Salicylate Lvl (test no gt See_Comment [Autom ated message] The code = Salicylate Lvl) syste m which generated this result tra nsmitted reference range : <=30.0. The reference r annemarie was not used to int erpret this result as normal/abnormal . [place] 85441018-12-19 13:17:00 Test Item Value Reference Range Interpretation Comments Acetaminoph Lvl (test code = 3 10-20 Acetaminoph Lvl) [facility] ALPENAIPXZIXP0555-69-76 13:17:00 Test Item Value Reference Range Interpretation Comments Total CK (test code = Total CK) 815 12-191 [facility] HospitalNljppgaGVMLDTQASJIB1778-30-77 13:17:00 Test Item Value Reference Range Interpretation Comments AGAP (test code = AGAP) 14.8 10.0-20.0 [facility] HospitalAuzkifyNDEQCYZFWPVG8558-00-62 13:17:00 Test Item Value Reference Range Interpretation Comments eGFR (test code = eGFR) 93 [facility] HospitalQsgnrvxKHZSITSMDHPH8424-85-34 13:17:00 Test Item Value Reference Range Interpretation Comments Creatinine Lvl (test code = Creatinine 1.07 0.50-1.40 Lvl) [facility] HospitalBgfumlgXHYWHISOXVSD7571-26-02 13:17:00 Test Item Value Reference Range Interpretation Comments Sodium Lvl (test code = Sodium Lvl) 135 135-145 [facility] HospitalQbswhpeADHLTQXRNRLG5596-27-68 13:17:00 Test Item Value Reference Range Interpretation Comments Potassium Lvl (test code = Potassium 3.8 3.5-5.1 Lvl) [facility] HospitalYvygysiPELEHDINJMKE1169-39-54 13:17:00 Test Item Value Reference Range Interpretation Comments Calcium Lvl (test code = Calcium Lvl) 9.3 8.5-10.5 [facility] HospitalNvjhvyhRAJNDMPXZVNA5289-83-01 13:17:00 Test Item Value Reference Range Interpretation Comments CO2 (test code = CO2) 23 24-32 [facility] HospitalNudmppvKYUDWENSNEIJ4752-63-52 13:17:00 Test Item Value Reference Range Interpretation Comments Chloride Lvl (test code = Chloride Lvl) 101 95-109 [facility] HospitalFoxwwcxGBCWQWTHXNHA6310-44-60 13:17:00 Test Item Value Reference Range Interpretation Comments Glucose Lvl (test code = Glucose Lvl) 94 70-99 [facility] HospitalJghgztpKCFVZISCSLEQ5811-18-01 13:17:00 Test Item Value Reference Range Interpretation Comments BUN (test code = BUN) 17 7-22 [facility] HospitalYleomlkDEDAGRQJWA5039-63-72 13:17:00 Test Item Value Reference Range Interpretation Comments MCHC (test code = MCHC) 33.6 32.0-36.0 [facility] HospitalXjybvtmGFIQLGBPFV6266-50-90 13:17:00 Test Item Value Reference Range Interpretation Comments RDW (test code = RDW) 14.7 11.5-14.5 [facility] HospitalFrvkqbkJZYGWXTPZO5954-85-78 13:17:00 Test Item Value Reference Range Interpretation Comments MCH (test code = MCH) 27.9 pg 27.0-31.0 [facility] HospitalNmoboipBSLCCAWYXX2378-77-62 13:17:00 Test Item Value Reference Range Interpretation Comments MCV (test code = MCV) 83.1 80.0-94.0 [facility] HospitalFgflhgbVUQYGGGMAQ9137-95-44 13:17:00 Test Item Value Reference Range Interpretation Comments MPV (test code = MPV) 9.9 7.4-10.4 [place] 356078-12-19 13:17:00 Test Item Value Reference Range Interpretation Comments Platelet (test code = Platelet) 165 133-450 [facility] HospitalAfekujcEZYEREYVXY3152-67-08 13:17:00 Test Item Value Reference Range Interpretation Comments RBC (test code = RBC) 4.63 4.70-6.10 [facility] HospitalBkozylsTYYNZXPFDP9389-49-84 13:17:00 Test Item Value Reference Range Interpretation Comments Hgb (test code = Hgb) 12.9 14.0-18.0 [facility] HospitalBhlaqmqESHGOCDLNX3822-48-95 13:17:00 Test Item Value Reference Range Interpretation Comments Hct (test code = Hct) 38.4 42.0-54.0 [facility] HospitalJrnkuauTTSWYPGQQF8014-72-77 13:17:00 Test Item Value Reference Range Interpretation Comments WBC (test code = WBC) 8.2 3.7-10.4 [facility] HospitalAnsilavEDNXVPMSUM8577-31-09 13:17:00 Test Item Value Reference Range Interpretation Comments Monocytes # (test code 0.9 See_Comment [Aut omated message] The = Monocytes #) system which generated this result tra nsmitted reference range : <=0.8. The reference r annemarie was not used to int erpret this result as normal/abnormal . [facility] HospitalUwkgzpcHSKYMCLOGW1076-10-19 13:17:00 Test Item Value Reference Range Interpretation Comments Eosinophils # (test code 0.1 See_Comment [A utomated message] The = Eosinophils #) system whic h generated this result tra nsmitted reference range : <=0.5. The reference r annemarie was not used to int erpret this result as normal/abnormal . [facility] HospitalMurumzxCLGCVERGBK5890-22-85 13:17:00 Test Item Value Reference Range Interpretation Comments Lymphocytes # (test code = Lymphocytes 1.1 1.0-5.5 #) [facility] HospitalWeopascPIGZWXHZOY5656-24-77 13:17:00 Test Item Value Reference Range Interpretation Comments Neutrophils # (test code = Neutrophils 6.1 1.5-8.1 #) [facility] HospitalFzxwvisZOADLPPYEV5448-04-98 13:17:00 Test Item Value Reference Range Interpretation Comments Monocytes (test code = Monocytes) 11.1 2.0-12.0 [facility] HospitalTboqgwpAJCCNETHGJ2907-67-85 13:17:00 Test Item Value Reference Range Interpretation Comments Eosinophils (test code = 0.9 See_Comment [A utomated message] The Eosinophils) system which ge nerated this result tra nsmitted reference range : <=4.0. The reference r annemarie was not used to int erpret this result as normal/abnormal . [facility] HospitalOyaszicNZISPEBCBC6588-37-44 13:17:00 Test Item Value Reference Range Interpretation Comments Basophils (test code = 0.2 See_Comment [Aut omated message] The Basophils) system which ge nerated this result tra nsmitted reference range : <=1.0. The reference r annemarie was not used to int erpret this result as normal/abnormal . [facility] HospitalGuclfksWHWKBJFUOO1523-63-16 13:17:00 Test Item Value Reference Range Interpretation Comments Segs (test code = Segs) 74.9 45.0-75.0 [facility] HospitalMeehvkoJKJXLLJSRM2412-92-48 13:17:00 Test Item Value Reference Range Interpretation Comments Lymphocytes (test code = Lymphocytes) 12.9 20.0-40.0 [place] [id number] 13:17:00 Test Item Value Reference Range Interpretation Comments Salicylate Lvl (test no gt See_Comment [Autom ated message] The code = Salicylate Lvl) syste m which generated this result tra nsmitted reference range : <=30.0. The reference r annemarie was not used to int erpret this result as normal/abnormal . [facility]BbwrzhuGWLRZVCMOJ8995-38-84 13:17:00 Test Item Value Reference Range Interpretation Comments Acetaminoph Lvl (test code = 3 10-20 Acetaminoph Lvl) [facility]FHSNNRO3217-93-29 13:17:00 Test Item Value Reference Range Interpretation Comments Total CK (test code = Total CK) 815 12-191 [facility] HospitalKhoagxiIZQFWAFBKNUT5840-91-11 13:17:00 Test Item Value Reference Range Interpretation Comments AGAP (test code = AGAP) 14.8 10.0-20.0 [facility] HospitalQarfjcrXQROTPTRMMNX0313-53-36 13:17:00 Test Item Value Reference Range Interpretation Comments eGFR (test code = eGFR) 93 [facility] HospitalBoelillAMOXQTRWQCMK4083-85-29 13:17:00 Test Item Value Reference Range Interpretation Comments Creatinine Lvl (test code = Creatinine 1.07 0.50-1.40 Lvl) [facility] HospitalClictfhZZBXUUKOHBYQ4073-63-96 13:17:00 Test Item Value Reference Range Interpretation Comments Sodium Lvl (test code = Sodium Lvl) 135 135-145 [facility] HospitalEndfjisLQPLHKBBRYMH9556-86-23 13:17:00 Test Item Value Reference Range Interpretation Comments Potassium Lvl (test code = Potassium 3.8 3.5-5.1 Lvl) [facility] HospitalSijqkfwULBYNWNFUJYN1270-87-51 13:17:00 Test Item Value Reference Range Interpretation Comments Calcium Lvl (test code = Calcium Lvl) 9.3 8.5-10.5 [facility] HospitalKgsmledDGLNEFXECOPB6782-19-57 13:17:00 Test Item Value Reference Range Interpretation Comments CO2 (test code = CO2) 23 24-32 [facility] HospitalMbqqzojYQRHASTVRJIA8206-73-20 13:17:00 Test Item Value Reference Range Interpretation Comments Chloride Lvl (test code = Chloride Lvl) 101 95-109 [facility] HospitalKhqmhxsUJDVIIJVKKVR0968-19-02 13:17:00 Test Item Value Reference Range Interpretation Comments Glucose Lvl (test code = Glucose Lvl) 94 70-99 [facility] HospitalBzsxbdoOQMXHLQKBVFK5774-76-11 13:17:00 Test Item Value Reference Range Interpretation Comments BUN (test code = BUN) 17 7-22 [facility] HospitalEhvdotsCVSRFYYFSM8909-92-77 13:17:00 Test Item Value Reference Range Interpretation Comments MCHC (test code = MCHC) 33.6 32.0-36.0 [facility] HospitalPjbanedJUYPRWXRIV9011-34-28 13:17:00 Test Item Value Reference Range Interpretation Comments RDW (test code = RDW) 14.7 11.5-14.5 [facility] HospitalHhyeisoPXAJLGYEBB8702-50-25 13:17:00 Test Item Value Reference Range Interpretation Comments MCH (test code = MCH) 27.9 pg 27.0-31.0 [facility] HospitalLvthjepKLJAIXOAWW7418-90-48 13:17:00 Test Item Value Reference Range Interpretation Comments MCV (test code = MCV) 83.1 80.0-94.0 [facility] HospitalNlwbeiaYYNXPWSMUM3799-76-48 13:17:00 Test Item Value Reference Range Interpretation Comments MPV (test code = MPV) 9.9 7.4-10.4 [facility] HospitalZtouclhWTZGARGNOL6101-41-27 13:17:00 Test Item Value Reference Range Interpretation Comments Platelet (test code = Platelet) 165 133-450 [facility] HospitalJctjyokKKVCTYEHYD1401-29-50 13:17:00 Test Item Value Reference Range Interpretation Comments RBC (test code = RBC) 4.63 4.70-6.10 [facility] HospitalMnsqzcrCPUIYISPMP6072-93-81 13:17:00 Test Item Value Reference Range Interpretation Comments Hgb (test code = Hgb) 12.9 14.0-18.0 [facility] HospitalWkpcheaQZLIMRCNXK6907-90-62 13:17:00 Test Item Value Reference Range Interpretation Comments Hct (test code = Hct) 38.4 42.0-54.0 [facility] HospitalCueegqhGPWHUXYKJF2858-16-02 13:17:00 Test Item Value Reference Range Interpretation Comments WBC (test code = WBC) 8.2 3.7-10.4 [facility] HospitalXdmdwlpHCLIXUYLAU3047-68-34 13:17:00 Test Item Value Reference Range Interpretation Comments Monocytes # (test code 0.9 See_Comment [Aut omated message] The = Monocytes #) system which generated this result tra nsmitted reference range : <=0.8. The reference r annemarie was not used to int erpret this result as normal/abnormal . [facility] HospitalDdvtocnHYTCZNODHM9476-80-25 13:17:00 Test Item Value Reference Range Interpretation Comments Eosinophils # (test code 0.1 See_Comment [A utomated message] The = Eosinophils #) system whic h generated this result tra nsmitted reference range : <=0.5. The reference r annemarie was not used to int erpret this result as normal/abnormal . [place] 356078-12-19 13:17:00 Test Item Value Reference Range Interpretation Comments Lymphocytes # (test code = Lymphocytes 1.1 1.0-5.5 #) [facility] HospitalBgfomokRYXMKRZBEY2828-99-71 13:17:00 Test Item Value Reference Range Interpretation Comments Neutrophils # (test code = Neutrophils 6.1 1.5-8.1 #) [facility] HospitalUfiogwuMAXTJSGJDI8613-69-19 13:17:00 Test Item Value Reference Range Interpretation Comments Monocytes (test code = Monocytes) 11.1 2.0-12.0 [facility] HospitalMqsqvvqBVZONTSYPB3351-12-39 13:17:00 Test Item Value Reference Range Interpretation Comments Eosinophils (test code = 0.9 See_Comment [A utomated message] The Eosinophils) system which ge nerated this result tra nsmitted reference range : <=4.0. The reference r annemarie was not used to int erpret this result as normal/abnormal . [facility] HospitalHbokrjmDSEKNEGKKC2825-15-67 13:17:00 Test Item Value Reference Range Interpretation Comments Basophils (test code = 0.2 See_Comment [Aut omated message] The Basophils) system which ge nerated this result tra nsmitted reference range : <=1.0. The reference r annemarie was not used to int erpret this result as normal/abnormal . [facility] HospitalAwzkdonTMDPMRYYHG5128-89-34 13:17:00 Test Item Value Reference Range Interpretation Comments Segs (test code = Segs) 74.9 45.0-75.0 [facility] HospitalNjisqifCSUUPLKOHS1399-90-83 13:17:00 Test Item Value Reference Range Interpretation Comments Lymphocytes (test code = Lymphocytes) 12.9 20.0-40.0 [place] [id number] 13:17:00 Test Item Value Reference Range Interpretation Comments Salicylate Lvl (test no gt See_Comment [Autom ated message] The code = Salicylate Lvl) syste m which generated this result tra nsmitted reference range : <=30.0. The reference r annemarie was not used to int erpret this result as normal/abnormal . [facility] HoustonBcuknhoIRLTIYHXGA2500-35-84 13:17:00 Test Item Value Reference Range Interpretation Comments Acetaminoph Lvl (test code = 3 10-20 Acetaminoph Lvl) [facility] UHVFEJF7697-95-34 13:17:00 Test Item Value Reference Range Interpretation Comments Total CK (test code = Total CK) 815 12-191 [facility] HospitalMthcfauBEQRUDHFRKZM2241-45-15 13:17:00 Test Item Value Reference Range Interpretation Comments AGAP (test code = AGAP) 14.8 10.0-20.0 [facility] HospitalHpwrreiVDQDJKQBSMJG9188-49-74 13:17:00 Test Item Value Reference Range Interpretation Comments eGFR (test code = eGFR) 93 [facility] HospitalIqdduduZQMYLIIJFARK2623-59-86 13:17:00 Test Item Value Reference Range Interpretation Comments Creatinine Lvl (test code = Creatinine 1.07 0.50-1.40 Lvl) [facility] HospitalWsrnzteRLNQKVNNWJUW4854-17-91 13:17:00 Test Item Value Reference Range Interpretation Comments Sodium Lvl (test code = Sodium Lvl) 135 135-145 [facility] HospitalLsbmlwrVDMQAQFTWKBU1705-96-51 13:17:00 Test Item Value Reference Range Interpretation Comments Potassium Lvl (test code = Potassium 3.8 3.5-5.1 Lvl) [facility] HospitalHqvdgxbTZXJODYHOFZV2594-89-96 13:17:00 Test Item Value Reference Range Interpretation Comments Calcium Lvl (test code = Calcium Lvl) 9.3 8.5-10.5 [facility] HospitalUljjhlmRFKSIXSYAZEJ5885-68-90 13:17:00 Test Item Value Reference Range Interpretation Comments CO2 (test code = CO2) 23 24-32 [facility] HospitalZxkdztfUSMHNASTKUCS2129-81-98 13:17:00 Test Item Value Reference Range Interpretation Comments Chloride Lvl (test code = Chloride Lvl) 101 95-109 [facility] HospitalQrjhlqnDGKOHJQJAWNI9566-76-15 13:17:00 Test Item Value Reference Range Interpretation Comments Glucose Lvl (test code = Glucose Lvl) 94 70-99 [facility] HospitalTjkrqkvQKUCRZYZKHCN8659-75-02 13:17:00 Test Item Value Reference Range Interpretation Comments BUN (test code = BUN) 17 7-22 [facility] HospitalCodctcfIBTFECFGCX8267-43-38 13:17:00 Test Item Value Reference Range Interpretation Comments MCHC (test code = MCHC) 33.6 32.0-36.0 [facility] HospitalEdtqwbqDXIVINFAAJ4694-04-51 13:17:00 Test Item Value Reference Range Interpretation Comments RDW (test code = RDW) 14.7 11.5-14.5 [facility] HospitalBvvfefiEDDKGLLHRA8416-98-49 13:17:00 Test Item Value Reference Range Interpretation Comments MCH (test code = MCH) 27.9 pg 27.0-31.0 [facility] HospitalSnhjdwuYZTUGPYHIW0601-16-74 13:17:00 Test Item Value Reference Range Interpretation Comments MCV (test code = MCV) 83.1 80.0-94.0 [facility] HospitalWchedbxSYCJQCAWEG1592-40-65 13:17:00 Test Item Value Reference Range Interpretation Comments MPV (test code = MPV) 9.9 7.4-10.4 [facility] HospitalZjdvcyiMVULBJQRKJ7554-02-49 13:17:00 Test Item Value Reference Range Interpretation Comments Platelet (test code = Platelet) 165 133-450 [facility] HospitalMxozikkEIRUNHBLTL8086-64-71 13:17:00 Test Item Value Reference Range Interpretation Comments RBC (test code = RBC) 4.63 4.70-6.10 [facility] HospitalVeouluwGSKWFNCWTO9643-21-28 13:17:00 Test Item Value Reference Range Interpretation Comments Hgb (test code = Hgb) 12.9 14.0-18.0 [facility] HospitalEhmetzuYGSEKZMOPD9270-68-80 13:17:00 Test Item Value Reference Range Interpretation Comments Hct (test code = Hct) 38.4 42.0-54.0 [facility] HospitalUhtkeykCEGDOFWZTP2590-47-08 13:17:00 Test Item Value Reference Range Interpretation Comments WBC (test code = WBC) 8.2 3.7-10.4 [facility] HospitalKhjqydfGHQMLUNLSO3821-20-35 13:17:00 Test Item Value Reference Range Interpretation Comments Monocytes # (test code 0.9 See_Comment [Aut omated message] The = Monocytes #) system which generated this result tra nsmitted reference range : <=0.8. The reference r annemarie was not used to int erpret this result as normal/abnormal . [facility] HospitalDfhvzpaMMLVJKHVYX5026-59-34 13:17:00 Test Item Value Reference Range Interpretation Comments Eosinophils # (test code 0.1 See_Comment [A utomated message] The = Eosinophils #) system whic h generated this result tra nsmitted reference range : <=0.5. The reference r annemarie was not used to int erpret this result as normal/abnormal . [facility] HospitalHrqxuhkGROZVYDHXK0790-16-53 13:17:00 Test Item Value Reference Range Interpretation Comments Lymphocytes # (test code = Lymphocytes 1.1 1.0-5.5 #) [facility] HospitalWzxzryuJHWRZNCMJZ6817-39-61 13:17:00 Test Item Value Reference Range Interpretation Comments Neutrophils # (test code = Neutrophils 6.1 1.5-8.1 #) [facility] HospitalPdeznhaTJJHCGQSLY9424-33-65 13:17:00 Test Item Value Reference Range Interpretation Comments Monocytes (test code = Monocytes) 11.1 2.0-12.0 [facility] HospitalPvfhxtkWFQQOVJACO5393-17-96 13:17:00 Test Item Value Reference Range Interpretation Comments Eosinophils (test code = 0.9 See_Comment [A utomated message] The Eosinophils) system which ge nerated this result tra nsmitted reference range : <=4.0. The reference r annemarie was not used to int erpret this result as normal/abnormal . [facility] HospitalDpdpokfFCRUQYZCDP1139-70-77 13:17:00 Test Item Value Reference Range Interpretation Comments Basophils (test code = 0.2 See_Comment [Aut omated message] The Basophils) system which ge nerated this result tra nsmitted reference range : <=1.0. The reference r annemarie was not used to int erpret this result as normal/abnormal . [facility] HospitalXpzttqpHKHPMHGPJD1083-43-70 13:17:00 Test Item Value Reference Range Interpretation Comments Segs (test code = Segs) 74.9 45.0-75.0 [facility] CTMFJSD3869-83-69 10:11:00 Test Item Value Reference Range Interpretation Comments Troponin-I (test code no gt See_Comment [Auto mated message] The = Troponin-I) system which g enerated this result transmit abdelrahman reference range : <=0.40. The reference r annemarie was not used to interpr et this result as gurpreet l/abnormal. [facility]CHE[facility] DMFYF8981-34-41 10:11:00 Test Item Value Reference Range Interpretation Comments Phosphorus (test code = Phosphorus) 3.7 2.5-4.5 [facility]CHE[facility] MEYFT0111-26-33 10:11:00 Test Item Value Reference Range Interpretation Comments Magnesium Lvl (test code = Magnesium 2.1 1.8-2.4 Lvl) [facility] HospitalFyorylqTYWTGVIEMYCB7557-11-12 10:11:00 Test Item Value Reference Range Interpretation Comments AGAP (test code = AGAP) 11.0 10.0-20.0 [facility] HospitalHgxgxyiIVVMTYUHFFBX5773-84-58 10:11:00 Test Item Value Reference Range Interpretation Comments Creatinine Lvl (test code = Creatinine 0.90 0.50-1.40 Lvl) [facility] HospitalDhacaavIFOBDETPSDJZ5603-27-39 10:11:00 Test Item Value Reference Range Interpretation Comments eGFR (test code = eGFR) 114 [facility] HospitalSaqykzbLYQFJDANKSRB0116-99-95 10:11:00 Test Item Value Reference Range Interpretation Comments Calcium Lvl (test code = Calcium Lvl) 8.2 8.5-10.5 [facility] HospitalGfjbdiuHHSNUSHJYTKD0618-79-17 10:11:00 Test Item Value Reference Range Interpretation Comments CO2 (test code = CO2) 25 24-32 [facility] HospitalKctxijaNISSLFIFNJTG2693-82-64 10:11:00 Test Item Value Reference Range Interpretation Comments Chloride Lvl (test code = Chloride Lvl) 108 95-109 [facility] HospitalDsyvhzcQRFSEEDPAKIE2764-74-16 10:11:00 Test Item Value Reference Range Interpretation Comments Potassium Lvl (test code = Potassium 4.0 3.5-5.1 Lvl) [facility] HospitalDlxqunxTFSPLCKFJAHE5526-29-52 10:11:00 Test Item Value Reference Range Interpretation Comments Sodium Lvl (test code = Sodium Lvl) 140 135-145 [facility] HospitalFzbzxssQIBQUVUVBPNB0774-08-91 10:11:00 Test Item Value Reference Range Interpretation Comments BUN (test code = BUN) 11 7-22 [facility] HospitalVnrgkezEQAZUDFXWVCP4615-35-29 10:11:00 Test Item Value Reference Range Interpretation Comments Glucose Lvl (test code = Glucose Lvl) 85 70-99 [facility] HospitalXmppcwuVKTPZACNFG6795-13-53 10:11:00 Test Item Value Reference Range Interpretation Comments MCH (test code = MCH) 27.9 pg 27.0-31.0 [facility] HospitalRoiiqfvDNWMEVKTVA9906-25-48 10:11:00 Test Item Value Reference Range Interpretation Comments MCHC (test code = MCHC) 33.5 32.0-36.0 [facility] HospitalQfhndwzJOKMKMASEI3744-12-40 10:11:00 Test Item Value Reference Range Interpretation Comments Hct (test code = Hct) 36.7 42.0-54.0 [facility] HospitalWkmixrrHNTYCNCGGH7415-48-62 10:11:00 Test Item Value Reference Range Interpretation Comments MCV (test code = MCV) 83.1 80.0-94.0 [facility] HospitalGsirsjqDFBJJFKHXC1223-06-05 10:11:00 Test Item Value Reference Range Interpretation Comments RBC (test code = RBC) 4.42 4.70-6.10 [facility] HospitalDsucyhrGCBOHXKDDJ6632-07-52 10:11:00 Test Item Value Reference Range Interpretation Comments Hgb (test code = Hgb) 12.3 14.0-18.0 [facility] HospitalXvcjqvvBOZYHGYXJU8794-40-95 10:11:00 Test Item Value Reference Range Interpretation Comments WBC (test code = WBC) 8.5 3.7-10.4 [facility] HospitalGytdnetVSVTDGTZVX3516-44-39 10:11:00 Test Item Value Reference Range Interpretation Comments MPV (test code = MPV) 9.5 7.4-10.4 [facility] HospitalGsunuhbENRXAJJZSA0088-92-72 10:11:00 Test Item Value Reference Range Interpretation Comments RDW (test code = RDW) 14.4 11.5-14.5 [facility] HospitalQlwynxdGWGXEOBLNF0282-86-17 10:11:00 Test Item Value Reference Range Interpretation Comments Platelet (test code = Platelet) 164 133-450 [facility] HospitalFxglphyGPDSJMWTEW4589-72-56 10:11:00 Test Item Value Reference Range Interpretation Comments Lymphocytes # (test code = Lymphocytes 1.2 1.0-5.5 #) [facility] HospitalBsugzftCSRVHYFJJA5046-27-25 10:11:00 Test Item Value Reference Range Interpretation Comments Monocytes # (test code 0.6 See_Comment [Aut omated message] The = Monocytes #) system which generated this result tra nsmitted reference range : <=0.8. The reference r annemarie was not used to int erpret this result as normal/abnormal . [facility] HospitalAhukkdpCURILGQVIU7384-63-21 10:11:00 Test Item Value Reference Range Interpretation Comments Eosinophils # (test code 0.2 See_Comment [A utomated message] The = Eosinophils #) system whic h generated this result tra nsmitted reference range : <=0.5. The reference r annemarie was not used to int erpret this result as normal/abnormal . [facility] HospitalBhmadbaIXRHHDAPJO0179-88-62 10:11:00 Test Item Value Reference Range Interpretation Comments Basophils # (test code 0.0 See_Comment [Aut omated message] The = Basophils #) system which generated this result tra nsmitted reference range : <=0.2. The reference r annemarie was not used to int erpret this result as normal/abnormal . [facility] HospitalVjwgrljUYRNUQJIJS2079-34-80 10:11:00 Test Item Value Reference Range Interpretation Comments Eosinophils (test code = 2.3 See_Comment [A utomated message] The Eosinophils) system which ge nerated this result tra nsmitted reference range : <=4.0. The reference r annemarie was not used to int erpret this result as normal/abnormal . [facility] HospitalSnrbptrTHRIMXKOKL3474-35-15 10:11:00 Test Item Value Reference Range Interpretation Comments Basophils (test code = 0.3 See_Comment [Aut omated message] The Basophils) system which ge nerated this result tra nsmitted reference range : <=1.0. The reference r annemarie was not used to int erpret this result as normal/abnormal . [facility] HospitalFfjgiggUEMFXFSIOT2959-07-06 10:11:00 Test Item Value Reference Range Interpretation Comments Neutrophils # (test code = Neutrophils 6.5 1.5-8.1 #) [facility] HospitalAwewjwmRVVCMFOTSR3491-07-05 10:11:00 Test Item Value Reference Range Interpretation Comments Lymphocytes (test code = Lymphocytes) 14.5 20.0-40.0 [facility] HospitalMpsmfyeDQLDSWBRVU4221-26-16 10:11:00 Test Item Value Reference Range Interpretation Comments Monocytes (test code = Monocytes) 6.7 2.0-12.0 [facility] HospitalEiayidgJWWKLRWNKQ9784-64-26 10:11:00 Test Item Value Reference Range Interpretation Comments Segs (test code = Segs) 76.2 45.0-75.0 [facility]2018-12-14 10:11:00 Test Item Value Reference Range Interpretation Comments Ca Norm WB (test code = Ca Norm WB) 1.13 1.05-1.25 [facility]2018-12-14 10:11:00 Test Item Value Reference Range Interpretation Comments Ca Ion WB (test code = Ca Ion WB) 1.17 1.05-1.25 [facility] KRIOBPP9634-74-47 10:11:00 Test Item Value Reference Range Interpretation Comments Troponin-I (test code no gt See_Comment [Auto mated message] The = Troponin-I) system which g enerated this result transmit abdelrahman reference range : <=0.40. The reference r annemarie was not used to interpr et this result as gurpreet l/abnormal. [facility] KFYWZ8946-84-47 10:11:00 Test Item Value Reference Range Interpretation Comments Phosphorus (test code = Phosphorus) 3.7 2.5-4.5 [facility]CHE[facility] YVMVV4669-15-81 10:11:00 Test Item Value Reference Range Interpretation Comments Magnesium Lvl (test code = Magnesium 2.1 1.8-2.4 Lvl) [facility] HospitalCsaxdenIVCBVDHNGQQR0945-52-22 10:11:00 Test Item Value Reference Range Interpretation Comments AGAP (test code = AGAP) 11.0 10.0-20.0 [facility]GcfksqdOGKYFXDVKPFQ0102-51-22 10:11:00 Test Item Value Reference Range Interpretation Comments Creatinine Lvl (test code = Creatinine 0.90 0.50-1.40 Lvl) [facility]oVxefsodUFNOGENSZJWE8913-40-49 10:11:00 Test Item Value Reference Range Interpretation Comments eGFR (test code = eGFR) 114 [facility] HospitalNkhbmerEBZBVPHQETLO6894-64-93 10:11:00 Test Item Value Reference Range Interpretation Comments Calcium Lvl (test code = Calcium Lvl) 8.2 8.5-10.5 [facility]oWwmylbgVXAGSFFEACHJ6829-80-74 10:11:00 Test Item Value Reference Range Interpretation Comments CO2 (test code = CO2) 25 24-32 [facility] HospitalTlbzcqrLDCSBPMVOICN1444-86-41 10:11:00 Test Item Value Reference Range Interpretation Comments Chloride Lvl (test code = Chloride Lvl) 108 95-109 [facility] HospitalAmfuxusPNFLFOKONJEN8338-20-75 10:11:00 Test Item Value Reference Range Interpretation Comments Potassium Lvl (test code = Potassium 4.0 3.5-5.1 Lvl) [facility] HospitalMtqsnarPFSCWRCHEZEL7130-48-97 10:11:00 Test Item Value Reference Range Interpretation Comments Sodium Lvl (test code = Sodium Lvl) 140 135-145 [facility] HospitalWsypfbhCKMIGIILAGQN3197-23-54 10:11:00 Test Item Value Reference Range Interpretation Comments BUN (test code = BUN) 11 7-22 [facility] HospitalEcttgazVVYFLQXWIRUR7577-58-45 10:11:00 Test Item Value Reference Range Interpretation Comments Glucose Lvl (test code = Glucose Lvl) 85 70-99 [facility] HospitalLayiymzONVQYLODAM0828-44-64 10:11:00 Test Item Value Reference Range Interpretation Comments MCH (test code = MCH) 27.9 pg 27.0-31.0 [facility] HospitalJkjbbahPNKKCTSUAD1562-20-95 10:11:00 Test Item Value Reference Range Interpretation Comments MCHC (test code = MCHC) 33.5 32.0-36.0 [facility] HospitalQlwbbttCNSMSMKPUF6000-02-07 10:11:00 Test Item Value Reference Range Interpretation Comments Hct (test code = Hct) 36.7 42.0-54.0 [facility] HospitalFxgvqfxPRFMIGULMW1994-46-43 10:11:00 Test Item Value Reference Range Interpretation Comments MCV (test code = MCV) 83.1 80.0-94.0 [facility] HospitalIwbwninJEAGKAXAGV3671-72-19 10:11:00 Test Item Value Reference Range Interpretation Comments RBC (test code = RBC) 4.42 4.70-6.10 [facility] HospitalHzkfmpgTJNGKQRVIP8866-74-05 10:11:00 Test Item Value Reference Range Interpretation Comments Hgb (test code = Hgb) 12.3 14.0-18.0 [facility] HospitalKidrriiOEZKKOGLTC4015-88-76 10:11:00 Test Item Value Reference Range Interpretation Comments WBC (test code = WBC) 8.5 3.7-10.4 [facility] HospitalIjrvtmsWSLOJIVXTL0745-19-67 10:11:00 Test Item Value Reference Range Interpretation Comments MPV (test code = MPV) 9.5 7.4-10.4 [facility] HospitalTwpdgxvNFFVSORVNG3512-62-04 10:11:00 Test Item Value Reference Range Interpretation Comments RDW (test code = RDW) 14.4 11.5-14.5 [facility] HospitalRsnwkklWSYWBEFMDF6166-20-66 10:11:00 Test Item Value Reference Range Interpretation Comments Platelet (test code = Platelet) 164 133-450 [facility] HospitalPnwkoxaHNSUUJXDQP8952-83-02 10:11:00 Test Item Value Reference Range Interpretation Comments Lymphocytes # (test code = Lymphocytes 1.2 1.0-5.5 #) [facility] HospitalAdhvscdIZEKQCGZLC6788-42-26 10:11:00 Test Item Value Reference Range Interpretation Comments Monocytes # (test code 0.6 See_Comment [Aut omated message] The = Monocytes #) system which generated this result tra nsmitted reference range : <=0.8. The reference r annemarie was not used to int erpret this result as normal/abnormal . [facility] HospitalFwoqwrcVLSZFLBZBG4591-36-60 10:11:00 Test Item Value Reference Range Interpretation Comments Eosinophils # (test code 0.2 See_Comment [A utomated message] The = Eosinophils #) system wh h generated this result tra nsmitted reference range : <=0.5. The reference r annemarie was not used to int erpret this result as normal/abnormal . [facility] HospitalLopbyzjFGXZLWLTVA5109-50-44 10:11:00 Test Item Value Reference Range Interpretation Comments Basophils # (test code 0.0 See_Comment [Aut omated message] The = Basophils #) system which generated this result tra nsmitted reference range : <=0.2. The reference r annemarie was not used to int erpret this result as normal/abnormal . [facility] HospitalBufabpcZZHUTEEIVF4159-83-35 10:11:00 Test Item Value Reference Range Interpretation Comments Eosinophils (test code = 2.3 See_Comment [A utomated message] The Eosinophils) system which ge nerated this result tra nsmitted reference range : <=4.0. The reference r annemarie was not used to int erpret this result as normal/abnormal . [facility] HospitalAwqgtkxUQNVFFRTIX5551-88-89 10:11:00 Test Item Value Reference Range Interpretation Comments Basophils (test code = 0.3 See_Comment [Aut omated message] The Basophils) system which ge nerated this result tra nsmitted reference range : <=1.0. The reference r annemarie was not used to int erpret this result as normal/abnormal . [facility] HospitalYazfvhyTIEGHLVOZV2475-54-86 10:11:00 Test Item Value Reference Range Interpretation Comments Neutrophils # (test code = Neutrophils 6.5 1.5-8.1 #) [facility] HospitalJszaxvxQRXSBUPBKE6396-09-69 10:11:00 Test Item Value Reference Range Interpretation Comments Lymphocytes (test code = Lymphocytes) 14.5 20.0-40.0 [facility] AustinCphsoswRHPLIYMVPD7859-09-88 10:11:00 Test Item Value Reference Range Interpretation Comments Monocytes (test code = Monocytes) 6.7 2.0-12.0 [facility] AustinJmmblxaLCFBUEFUWK2561-48-47 10:11:00 Test Item Value Reference Range Interpretation Comments Segs (test code = Segs) 76.2 45.0-75.0 [facility] AustinannPARATHYROID GQOOSFV9657-78-65 10:11:00 Test Item Value Reference Range Interpretation Comments Ca Norm WB (test code = Ca Norm WB) 1.13 1.05-1.25 [facility] HermannPARATHYROID ZCNJBBJ5112-49-51 10:11:00 Test Item Value Reference Range Interpretation Comments Ca Ion WB (test code = Ca Ion WB) 1.17 1.05-1.25 [facility] AustinannCARDIAC YQPTVDS5640-03-94 10:11:00 Test Item Value Reference Range Interpretation Comments Troponin-I (test code no gt See_Comment [Auto mated message] The = Troponin-I) system which g enerated this result transmit abdelrahman reference range : <=0.40. The reference r annemarie was not used to interpr et this result as gurpreet l/abnormal. [facility] AustinannCHEM WJCPM9515-65-34 10:11:00 Test Item Value Reference Range Interpretation Comments Phosphorus (test code = Phosphorus) 3.7 2.5-4.5 [facility] AustinannCHEM JKSVK9904-84-38 10:11:00 Test Item Value Reference Range Interpretation Comments Magnesium Lvl (test code = Magnesium 2.1 1.8-2.4 Lvl) [facility] AustinKhghhisSUXWMRMTDHEL9958-14-36 10:11:00 Test Item Value Reference Range Interpretation Comments AGAP (test code = AGAP) 11.0 10.0-20.0 [facility] CsrruscRHJOKUGZTXKF7703-53-45 10:11:00 Test Item Value Reference Range Interpretation Comments Creatinine Lvl (test code = Creatinine 0.90 0.50-1.40 Lvl) [facility] AustinUwlmdisLTDYAVMFJZWL1585-75-93 10:11:00 Test Item Value Reference Range Interpretation Comments eGFR (test code = eGFR) 114 [facility] AustinSzpnsfpPNXDTZKRQOBH8150-88-02 10:11:00 Test Item Value Reference Range Interpretation Comments Calcium Lvl (test code = Calcium Lvl) 8.2 8.5-10.5 [facility]KxraxmzMJAFBJFADXWF8431-33-40 10:11:00 Test Item Value Reference Range Interpretation Comments CO2 (test code = CO2) 25 24-32 [facility] HospitalWajvdhwJSJFDGLJZQQH7923-36-46 10:11:00 Test Item Value Reference Range Interpretation Comments Chloride Lvl (test code = Chloride Lvl) 108 95-109 [facility] HospitalIxgokikWXEZCZBDWRXZ6272-06-37 10:11:00 Test Item Value Reference Range Interpretation Comments Potassium Lvl (test code = Potassium 4.0 3.5-5.1 Lvl) [facility] HospitalVcryyquEJSDKBMNHWIU1951-93-09 10:11:00 Test Item Value Reference Range Interpretation Comments Sodium Lvl (test code = Sodium Lvl) 140 135-145 [facility] HospitalNmkszjqPRHEQWGFXMUS7204-50-84 10:11:00 Test Item Value Reference Range Interpretation Comments BUN (test code = BUN) 11 7-22 [facility] HospitalWiiynluUMNNZXQEIOOS5848-43-07 10:11:00 Test Item Value Reference Range Interpretation Comments Glucose Lvl (test code = Glucose Lvl) 85 70-99 [facility] HospitalUwqwcimJTXLSMKQHO5229-56-18 10:11:00 Test Item Value Reference Range Interpretation Comments MCH (test code = MCH) 27.9 pg 27.0-31.0 [facility] HospitalPdygmvwNXNXYLLUWE6275-59-01 10:11:00 Test Item Value Reference Range Interpretation Comments MCHC (test code = MCHC) 33.5 32.0-36.0 [facility] HospitalPtrepdsJISUVHSGXK6928-91-16 10:11:00 Test Item Value Reference Range Interpretation Comments Hct (test code = Hct) 36.7 42.0-54.0 [facility] HospitalYaxolkgLTRJUDIWLS3274-71-87 10:11:00 Test Item Value Reference Range Interpretation Comments MCV (test code = MCV) 83.1 80.0-94.0 [facility] HospitalHdvycumCYBHULHPZV5773-59-93 10:11:00 Test Item Value Reference Range Interpretation Comments RBC (test code = RBC) 4.42 4.70-6.10 [facility] HospitalAjuykvvVCJQMHVZXK4055-77-99 10:11:00 Test Item Value Reference Range Interpretation Comments Hgb (test code = Hgb) 12.3 14.0-18.0 [facility] HospitalHiahvsyZQGOHQCXSP1976-67-15 10:11:00 Test Item Value Reference Range Interpretation Comments WBC (test code = WBC) 8.5 3.7-10.4 [facility] HospitalLmvkageRTPIZLJBRZ1841-91-78 10:11:00 Test Item Value Reference Range Interpretation Comments MPV (test code = MPV) 9.5 7.4-10.4 [facility] HospitalKqkcqmrQLRCYQUUKL5767-44-52 10:11:00 Test Item Value Reference Range Interpretation Comments RDW (test code = RDW) 14.4 11.5-14.5 [facility] HospitalPhiapwgIMGJASWSQR7271-64-65 10:11:00 Test Item Value Reference Range Interpretation Comments Platelet (test code = Platelet) 164 133-450 [facility] HospitalDportcxBLTGUWHEFF9411-27-94 10:11:00 Test Item Value Reference Range Interpretation Comments Lymphocytes # (test code = Lymphocytes 1.2 1.0-5.5 #) [facility] HospitalFsjvtmvPMIQSOSULB3691-84-08 10:11:00 Test Item Value Reference Range Interpretation Comments Monocytes # (test code 0.6 See_Comment [Aut omated message] The = Monocytes #) system which generated this result tra nsmitted reference range : <=0.8. The reference r annemarie was not used to int erpret this result as normal/abnormal . [facility] HospitalNszjeoePSWHALIIHZ6323-78-25 10:11:00 Test Item Value Reference Range Interpretation Comments Eosinophils # (test code 0.2 See_Comment [A utomated message] The = Eosinophils #) system whic h generated this result tra nsmitted reference range : <=0.5. The reference r annemarie was not used to int erpret this result as normal/abnormal . [facility] HospitalLmxaqorDTIMKPBFUS1478-33-57 10:11:00 Test Item Value Reference Range Interpretation Comments Basophils # (test code 0.0 See_Comment [Aut omated message] The = Basophils #) system which generated this result tra nsmitted reference range : <=0.2. The reference r annemarie was not used to int erpret this result as normal/abnormal . [facility] HospitalQinyjoqOBRYVPSCRM9282-69-52 10:11:00 Test Item Value Reference Range Interpretation Comments Eosinophils (test code = 2.3 See_Comment [A utomated message] The Eosinophils) system which ge nerated this result tra nsmitted reference range : <=4.0. The reference r annemarie was not used to int erpret this result as normal/abnormal . [facility] AustinZcmvtwyTYPILBUELK6900-65-85 10:11:00 Test Item Value Reference Range Interpretation Comments Basophils (test code = 0.3 See_Comment [Aut omated message] The Basophils) system which ge nerated this result tra nsmitted reference range : <=1.0. The reference r annemarie was not used to int erpret this result as normal/abnormal . [facility]TdoscvwSGUZGPCGXV1560-86-67 10:11:00 Test Item Value Reference Range Interpretation Comments Neutrophils # (test code = Neutrophils 6.5 1.5-8.1 #) [facility] AustinVkiaqowOCLHMYZITM4338-08-80 10:11:00 Test Item Value Reference Range Interpretation Comments Lymphocytes (test code = Lymphocytes) 14.5 20.0-40.0 [facility] AustinOuzqedsKRMZHRTMQM5077-85-58 10:11:00 Test Item Value Reference Range Interpretation Comments Monocytes (test code = Monocytes) 6.7 2.0-12.0 [facility]viewUmdefhwXPWKOLEQNC8621-66-36 10:11:00 Test Item Value Reference Range Interpretation Comments Segs (test code = Segs) 76.2 45.0-75.0 [facility] AustinannPARATHYROID WOVBSKX2287-59-79 10:11:00 Test Item Value Reference Range Interpretation Comments Ca Norm WB (test code = Ca Norm WB) 1.13 1.05-1.25 [facility] AustinannPARATHYROID VDSCMJU8177-56-15 10:11:00 Test Item Value Reference Range Interpretation Comments Ca Ion WB (test code = Ca Ion WB) 1.17 1.05-1.25 [facility] AustinannCARDIAC SUBHUIQ1131-14-72 10:11:00 Test Item Value Reference Range Interpretation Comments Troponin-I (test code no gt See_Comment [Auto mated message] The = Troponin-I) system which g enerated this result transmit abdelrahman reference range : <=0.40. The reference r annemarie was not used to interpr et this result as gurpreet l/abnormal. [facility]viewCHEM LOAZR7247-95-45 10:11:00 Test Item Value Reference Range Interpretation Comments Phosphorus (test code = Phosphorus) 3.7 2.5-4.5 [facility] AustinannCHEM NQWNV1307-08-87 10:11:00 Test Item Value Reference Range Interpretation Comments Magnesium Lvl (test code = Magnesium 2.1 1.8-2.4 Lvl) [facility] HospitalIipzgnaZPQMXYZULOAG5971-89-63 10:11:00 Test Item Value Reference Range Interpretation Comments AGAP (test code = AGAP) 11.0 10.0-20.0 [facility] HospitalXxcqkpoJZNKXTZQJEPD4496-32-86 10:11:00 Test Item Value Reference Range Interpretation Comments Creatinine Lvl (test code = Creatinine 0.90 0.50-1.40 Lvl) [facility] HospitalDjgtgpfZBWYUUGFPRQM6129-34-28 10:11:00 Test Item Value Reference Range Interpretation Comments eGFR (test code = eGFR) 114 [facility] HospitalJxtcbxqDEKQNKYOVMJI2012-88-39 10:11:00 Test Item Value Reference Range Interpretation Comments Calcium Lvl (test code = Calcium Lvl) 8.2 8.5-10.5 [facility] HospitalGqieygjWNGOOGJFFBCR2747-86-81 10:11:00 Test Item Value Reference Range Interpretation Comments CO2 (test code = CO2) 25 24-32 [facility] HospitalFkoitwwANJMWHRKLXRG0055-42-24 10:11:00 Test Item Value Reference Range Interpretation Comments Chloride Lvl (test code = Chloride Lvl) 108 95-109 [facility] HospitalXjorpnfDSPLXURTNOFN9063-63-23 10:11:00 Test Item Value Reference Range Interpretation Comments Potassium Lvl (test code = Potassium 4.0 3.5-5.1 Lvl) [facility] HospitalCgndzxeVMVWZRBZPFIX5294-29-06 10:11:00 Test Item Value Reference Range Interpretation Comments Sodium Lvl (test code = Sodium Lvl) 140 135-145 [facility] HospitalNclyftlWSLZACFXNFDN0293-02-15 10:11:00 Test Item Value Reference Range Interpretation Comments BUN (test code = BUN) 11 7-22 [facility] HospitalFgjnnulMJDLEBSXHZWQ5014-89-58 10:11:00 Test Item Value Reference Range Interpretation Comments Glucose Lvl (test code = Glucose Lvl) 85 70-99 [facility] HospitalXlodqrzVCLUBMRRNH8804-77-65 10:11:00 Test Item Value Reference Range Interpretation Comments MCH (test code = MCH) 27.9 pg 27.0-31.0 [facility] HospitalHjreaxyOPRVZJREQH0562-93-54 10:11:00 Test Item Value Reference Range Interpretation Comments MCHC (test code = MCHC) 33.5 32.0-36.0 [facility] HospitalBegygquHRHDTDJRYQ5558-48-01 10:11:00 Test Item Value Reference Range Interpretation Comments Hct (test code = Hct) 36.7 42.0-54.0 [facility] HospitalUohzdtvOQJVULFAYZ8288-64-67 10:11:00 Test Item Value Reference Range Interpretation Comments MCV (test code = MCV) 83.1 80.0-94.0 [facility] HospitalMaqycydEYTZGKSXQE2620-96-26 10:11:00 Test Item Value Reference Range Interpretation Comments RBC (test code = RBC) 4.42 4.70-6.10 [facility] HospitalHxwvrwkDSHUSKVWUB0966-51-94 10:11:00 Test Item Value Reference Range Interpretation Comments Hgb (test code = Hgb) 12.3 14.0-18.0 [facility] HospitalRhhilbrDJTYLMNVMI3614-28-71 10:11:00 Test Item Value Reference Range Interpretation Comments WBC (test code = WBC) 8.5 3.7-10.4 [facility] HospitalGzsruhnDZXPSHYOCK2560-12-60 10:11:00 Test Item Value Reference Range Interpretation Comments MPV (test code = MPV) 9.5 7.4-10.4 [facility] HospitalXbyxcldMTLGDDOZEL3385-56-11 10:11:00 Test Item Value Reference Range Interpretation Comments RDW (test code = RDW) 14.4 11.5-14.5 [facility] HospitalDxafxukSMVNYZFPGH8178-21-80 10:11:00 Test Item Value Reference Range Interpretation Comments Platelet (test code = Platelet) 164 133-450 [facility] HospitalKougkjsEOBOBOSXAF6556-86-46 10:11:00 Test Item Value Reference Range Interpretation Comments Lymphocytes # (test code = Lymphocytes 1.2 1.0-5.5 #) [facility] HospitalLoegervPUHQZVFYFA6340-35-40 10:11:00 Test Item Value Reference Range Interpretation Comments Monocytes # (test code 0.6 See_Comment [Aut omated message] The = Monocytes #) system which generated this result tra nsmitted reference range : <=0.8. The reference r annemarie was not used to int erpret this result as normal/abnormal . [facility] HospitalHlhnbxjQVBMLUEWHC5625-56-76 10:11:00 Test Item Value Reference Range Interpretation Comments Eosinophils # (test code 0.2 See_Comment [A utomated message] The = Eosinophils #) system whic h generated this result tra nsmitted reference range : <=0.5. The reference r annemarie was not used to int erpret this result as normal/abnormal . [facility] HospitalGlfixznGMZVHJJVLZ8816-83-62 10:11:00 Test Item Value Reference Range Interpretation Comments Basophils # (test code 0.0 See_Comment [Aut omated message] The = Basophils #) system which generated this result tra nsmitted reference range : <=0.2. The reference r annemarie was not used to int erpret this result as normal/abnormal . [facility] HospitalMaczosyYPKIDFVHFH1229-32-15 10:11:00 Test Item Value Reference Range Interpretation Comments Eosinophils (test code = 2.3 See_Comment [A utomated message] The Eosinophils) system which ge nerated this result tra nsmitted reference range : <=4.0. The reference r annemarie was not used to int erpret this result as normal/abnormal . [facility] HospitalOdhemsoNPKRKYQANF4473-66-17 10:11:00 Test Item Value Reference Range Interpretation Comments Basophils (test code = 0.3 See_Comment [Aut omated message] The Basophils) system which ge nerated this result tra nsmitted reference range : <=1.0. The reference r annemarie was not used to int erpret this result as normal/abnormal . [facility] HospitalMxrqnwiCYYNWYMAWA4694-64-49 10:11:00 Test Item Value Reference Range Interpretation Comments Neutrophils # (test code = Neutrophils 6.5 1.5-8.1 #) [facility] HospitalHrvgvjoFORPSFFEQV9395-34-12 10:11:00 Test Item Value Reference Range Interpretation Comments Lymphocytes (test code = Lymphocytes) 14.5 20.0-40.0 [facility] HospitalRrqwkfkLEJXUITVTU8396-43-32 10:11:00 Test Item Value Reference Range Interpretation Comments Monocytes (test code = Monocytes) 6.7 2.0-12.0 [facility] HospitalIftunwwSHOWUSFPEL6443-54-74 10:11:00 Test Item Value Reference Range Interpretation Comments Segs (test code = Segs) 76.2 45.0-75.0 [facility]2018-12-14 10:11:00 Test Item Value Reference Range Interpretation Comments Ca Norm WB (test code = Ca Norm WB) 1.13 1.05-1.25 [facility]2018-12-14 10:11:00 Test Item Value Reference Range Interpretation Comments Ca Ion WB (test code = Ca Ion WB) 1.17 1.05-1.25 [facility]CARD[facility] TJZYHQY8562-05-37 10:11:00 Test Item Value Reference Range Interpretation Comments Troponin-I (test code no gt See_Comment [Auto mated message] The = Troponin-I) system which g enerated this result transmit abdelrahman reference range : <=0.40. The reference r annemarie was not used to interpr et this result as gurpreet l/abnormal. [facility]viewCHEM WGKMI9305-16-09 10:11:00 Test Item Value Reference Range Interpretation Comments Phosphorus (test code = Phosphorus) 3.7 2.5-4.5 [facility]viewCHEM QECUP5130-49-33 10:11:00 Test Item Value Reference Range Interpretation Comments Magnesium Lvl (test code = Magnesium 2.1 1.8-2.4 Lvl) [facility] HospitalXvedctpIHJUROEYMPAR4725-95-53 10:11:00 Test Item Value Reference Range Interpretation Comments AGAP (test code = AGAP) 11.0 10.0-20.0 [facility] HospitalPupeaeeCVUHPDYSVMRI8842-26-17 10:11:00 Test Item Value Reference Range Interpretation Comments Creatinine Lvl (test code = Creatinine 0.90 0.50-1.40 Lvl) [facility] HospitalErktascXSOCAEYNKKQX6065-04-59 10:11:00 Test Item Value Reference Range Interpretation Comments eGFR (test code = eGFR) 114 [facility] HospitalYjvgxfyVGHFQNSIPEDI6165-51-86 10:11:00 Test Item Value Reference Range Interpretation Comments Calcium Lvl (test code = Calcium Lvl) 8.2 8.5-10.5 [facility] HospitalPjyotwqSKNBUQFPDVKF1314-39-81 10:11:00 Test Item Value Reference Range Interpretation Comments CO2 (test code = CO2) 25 24-32 [facility] HospitalPiunrdvFQUATOLDZGAZ1434-58-09 10:11:00 Test Item Value Reference Range Interpretation Comments Chloride Lvl (test code = Chloride Lvl) 108 95-109 [facility] HospitalDoxfslaFGNPQHPRSFSB6139-17-69 10:11:00 Test Item Value Reference Range Interpretation Comments Potassium Lvl (test code = Potassium 4.0 3.5-5.1 Lvl) [facility] HospitalLjjttmfPMVGIMBYBLHD6129-74-74 10:11:00 Test Item Value Reference Range Interpretation Comments Sodium Lvl (test code = Sodium Lvl) 140 135-145 [facility] HospitalLeoyooyOQLZAUNHXXHO7330-48-96 10:11:00 Test Item Value Reference Range Interpretation Comments BUN (test code = BUN) 11 7-22 [facility] HospitalKgdefcpLQXKGEGQCPVA9498-69-84 10:11:00 Test Item Value Reference Range Interpretation Comments Glucose Lvl (test code = Glucose Lvl) 85 70-99 [facility] HospitalHwgknvaXTHMHAZGXU4812-40-23 10:11:00 Test Item Value Reference Range Interpretation Comments MCH (test code = MCH) 27.9 pg 27.0-31.0 [facility] HospitalYzuyqaqXIOYMOLZQH8021-90-43 10:11:00 Test Item Value Reference Range Interpretation Comments MCHC (test code = MCHC) 33.5 32.0-36.0 [facility] HospitalFungrofFNNFHXPYQC5176-30-81 10:11:00 Test Item Value Reference Range Interpretation Comments Hct (test code = Hct) 36.7 42.0-54.0 [facility] HospitalArelaoeGAJCYTNRFS4255-48-14 10:11:00 Test Item Value Reference Range Interpretation Comments MCV (test code = MCV) 83.1 80.0-94.0 [facility] HospitalNvcsyyhXIUKVBEBFN7589-14-77 10:11:00 Test Item Value Reference Range Interpretation Comments RBC (test code = RBC) 4.42 4.70-6.10 [facility] HospitalCqkihapLCVLTSNELV6327-89-89 10:11:00 Test Item Value Reference Range Interpretation Comments Hgb (test code = Hgb) 12.3 14.0-18.0 [facility] HospitalOgswnuvXKFPWNJJAQ3735-14-11 10:11:00 Test Item Value Reference Range Interpretation Comments WBC (test code = WBC) 8.5 3.7-10.4 [facility] HospitalMorvesoKDVMXAPPPA7402-02-27 10:11:00 Test Item Value Reference Range Interpretation Comments MPV (test code = MPV) 9.5 7.4-10.4 [facility] HospitalQkycrcsEVMYHBLYQZ1370-37-06 10:11:00 Test Item Value Reference Range Interpretation Comments RDW (test code = RDW) 14.4 11.5-14.5 [facility] HospitalAbkbrygOISPIYCAEX8530-04-52 10:11:00 Test Item Value Reference Range Interpretation Comments Platelet (test code = Platelet) 164 133-450 [facility] HospitalNfikwwlTDUHTGGTSI9004-22-75 10:11:00 Test Item Value Reference Range Interpretation Comments Lymphocytes # (test code = Lymphocytes 1.2 1.0-5.5 #) [facility] HospitalTdwlgiiNPEBNBGHWH3359-87-10 10:11:00 Test Item Value Reference Range Interpretation Comments Monocytes # (test code 0.6 See_Comment [Aut omated message] The = Monocytes #) system which generated this result tra nsmitted reference range : <=0.8. The reference r annemarie was not used to int erpret this result as normal/abnormal . [facility] HospitalHdtvdpiMZAIGAAPFB5811-22-92 10:11:00 Test Item Value Reference Range Interpretation Comments Eosinophils # (test code 0.2 See_Comment [A utomated message] The = Eosinophils #) system whic h generated this result tra nsmitted reference range : <=0.5. The reference r annemarie was not used to int erpret this result as normal/abnormal . [facility] HospitalZrgpafoYTLHPYCDIQ5128-72-97 10:11:00 Test Item Value Reference Range Interpretation Comments Basophils # (test code 0.0 See_Comment [Aut omated message] The = Basophils #) system which generated this result tra nsmitted reference range : <=0.2. The reference r annemarie was not used to int erpret this result as normal/abnormal . [facility] HospitalKrzbtnoFKQFSWLEED3049-17-93 10:11:00 Test Item Value Reference Range Interpretation Comments Eosinophils (test code = 2.3 See_Comment [A utomated message] The Eosinophils) system which ge nerated this result tra nsmitted reference range : <=4.0. The reference r annemarie was not used to int erpret this result as normal/abnormal . [facility] HospitalZcprvjkDXIYRMZBZU2177-60-55 10:11:00 Test Item Value Reference Range Interpretation Comments Basophils (test code = 0.3 See_Comment [Aut omated message] The Basophils) system which ge nerated this result tra nsmitted reference range : <=1.0. The reference r annemarie was not used to int erpret this result as normal/abnormal . [facility] HospitalAzcgzxhJFHXWOCMRW7112-33-59 10:11:00 Test Item Value Reference Range Interpretation Comments Neutrophils # (test code = Neutrophils 6.5 1.5-8.1 #) [facility] HospitalQdtcgvoTRGTGGBBDQ3067-63-45 10:11:00 Test Item Value Reference Range Interpretation Comments Lymphocytes (test code = Lymphocytes) 14.5 20.0-40.0 [facility]WqmjtizFXDYZJMTPA1368-59-43 10:11:00 Test Item Value Reference Range Interpretation Comments Monocytes (test code = Monocytes) 6.7 2.0-12.0 [facility] HospitalRfhvtqpBQUXISNHCT8670-47-32 10:11:00 Test Item Value Reference Range Interpretation Comments Segs (test code = Segs) 76.2 45.0-75.0 [facility] KUYRJPZ8337-97-10 10:11:00 Test Item Value Reference Range Interpretation Comments Ca Norm WB (test code = Ca Norm WB) 1.13 1.05-1.25 [facility] VFHLGOV3667-81-75 10:11:00 Test Item Value Reference Range Interpretation Comments Ca Ion WB (test code = Ca Ion WB) 1.17 1.05-1.25 [facility]ARD[facility] LREFDUA4452-83-11 10:11:00 Test Item Value Reference Range Interpretation Comments Troponin-I (test code no gt See_Comment [Auto mated message] The = Troponin-I) system which g enerated this result transmit abdelrahman reference range : <=0.40. The reference r annemarie was not used to interpr et this result as gurpreet l/abnormal. [facility]CHE[facility] QECOE1486-45-99 10:11:00 Test Item Value Reference Range Interpretation Comments Phosphorus (test code = Phosphorus) 3.7 2.5-4.5 [facility]CHE[facility] OZQLK6075-50-00 10:11:00 Test Item Value Reference Range Interpretation Comments Magnesium Lvl (test code = Magnesium 2.1 1.8-2.4 Lvl) [facility]IbyiqufKSBRAXJVQSDY1829-45-92 10:11:00 Test Item Value Reference Range Interpretation Comments AGAP (test code = AGAP) 11.0 10.0-20.0 [facility]WzostdvMTNMKMMFLPMM9311-91-89 10:11:00 Test Item Value Reference Range Interpretation Comments Creatinine Lvl (test code = Creatinine 0.90 0.50-1.40 Lvl) [facility]oXmsmasuPTXMKGOWRRQS4712-81-56 10:11:00 Test Item Value Reference Range Interpretation Comments eGFR (test code = eGFR) 114 [facility]CmvqwuzJESIXDJJLXHK5375-74-72 10:11:00 Test Item Value Reference Range Interpretation Comments Calcium Lvl (test code = Calcium Lvl) 8.2 8.5-10.5 [facility] HospitalMfredmrUFXFPJFTPTJZ4127-93-00 10:11:00 Test Item Value Reference Range Interpretation Comments CO2 (test code = CO2) 25 24-32 [facility] HospitalEokqeozWEVEBYHTRGSP1744-69-79 10:11:00 Test Item Value Reference Range Interpretation Comments Chloride Lvl (test code = Chloride Lvl) 108 95-109 [facility] HospitalPcyyohdAVKWNZSXSUQI4645-36-14 10:11:00 Test Item Value Reference Range Interpretation Comments Potassium Lvl (test code = Potassium 4.0 3.5-5.1 Lvl) [facility] HospitalCsdlqyrBMWCHZNQXPUC2414-08-71 10:11:00 Test Item Value Reference Range Interpretation Comments Sodium Lvl (test code = Sodium Lvl) 140 135-145 [facility] HospitalGxzsdfpDFLHOPWXAHGC3388-78-95 10:11:00 Test Item Value Reference Range Interpretation Comments BUN (test code = BUN) 11 7-22 [facility] HospitalSimdphrOLRQFUPTXSIY3953-39-98 10:11:00 Test Item Value Reference Range Interpretation Comments Glucose Lvl (test code = Glucose Lvl) 85 70-99 [facility] HospitalQuduhmhRVFXKJXOIB5350-23-47 10:11:00 Test Item Value Reference Range Interpretation Comments MCH (test code = MCH) 27.9 pg 27.0-31.0 [facility] HospitalHbsxodhHSVIPGTGWH4741-16-26 10:11:00 Test Item Value Reference Range Interpretation Comments MCHC (test code = MCHC) 33.5 32.0-36.0 [facility] HospitalTtithmxNPXRSYIWVV5077-16-35 10:11:00 Test Item Value Reference Range Interpretation Comments Hct (test code = Hct) 36.7 42.0-54.0 [facility] HospitalEjnzeazKCXJJCICTP4025-18-37 10:11:00 Test Item Value Reference Range Interpretation Comments MCV (test code = MCV) 83.1 80.0-94.0 [facility] HospitalNijqoieGVOSPKPFNQ6268-25-23 10:11:00 Test Item Value Reference Range Interpretation Comments RBC (test code = RBC) 4.42 4.70-6.10 [facility] HospitalSqyopqvUVNUOWCNHG1773-54-36 10:11:00 Test Item Value Reference Range Interpretation Comments Hgb (test code = Hgb) 12.3 14.0-18.0 [facility] HospitalUmwjyxbEUKSDDUOGG0439-90-89 10:11:00 Test Item Value Reference Range Interpretation Comments WBC (test code = WBC) 8.5 3.7-10.4 [facility] HospitalCejdeksUJZEHZTGGO1007-16-81 10:11:00 Test Item Value Reference Range Interpretation Comments MPV (test code = MPV) 9.5 7.4-10.4 [facility] HospitalSlhadzpJXIFSKPCYN3904-81-10 10:11:00 Test Item Value Reference Range Interpretation Comments RDW (test code = RDW) 14.4 11.5-14.5 [facility] HospitalBhyryotVAMWHGSLAI1485-27-27 10:11:00 Test Item Value Reference Range Interpretation Comments Platelet (test code = Platelet) 164 133-450 [facility] HospitalHildxvhTLAVXBVNLM3503-66-22 10:11:00 Test Item Value Reference Range Interpretation Comments Lymphocytes # (test code = Lymphocytes 1.2 1.0-5.5 #) [facility] HospitalRapbrmkKUCVWTMLXW7142-80-13 10:11:00 Test Item Value Reference Range Interpretation Comments Monocytes # (test code 0.6 See_Comment [Aut omated message] The = Monocytes #) system which generated this result tra nsmitted reference range : <=0.8. The reference r annemarie was not used to int erpret this result as normal/abnormal . [facility] HospitalRermdrzBWAYYIXWUX7163-16-92 10:11:00 Test Item Value Reference Range Interpretation Comments Eosinophils # (test code 0.2 See_Comment [A utomated message] The = Eosinophils #) system whic h generated this result tra nsmitted reference range : <=0.5. The reference r annemarie was not used to int erpret this result as normal/abnormal . [facility] HospitalMawoznlUKXRORBZTE2618-69-35 10:11:00 Test Item Value Reference Range Interpretation Comments Basophils # (test code 0.0 See_Comment [Aut omated message] The = Basophils #) system which generated this result tra nsmitted reference range : <=0.2. The reference r annemarie was not used to int erpret this result as normal/abnormal . [facility] HospitalFivmlfrFDGYYHWBPF6955-46-18 10:11:00 Test Item Value Reference Range Interpretation Comments Eosinophils (test code = 2.3 See_Comment [A utomated message] The Eosinophils) system which ge nerated this result tra nsmitted reference range : <=4.0. The reference r annemarie was not used to int erpret this result as normal/abnormal . [facility]viewIbqhhmhWPKCAIDIHB4390-96-88 10:11:00 Test Item Value Reference Range Interpretation Comments Basophils (test code = 0.3 See_Comment [Aut omated message] The Basophils) system which ge nerated this result tra nsmitted reference range : <=1.0. The reference r annemarie was not used to int erpret this result as normal/abnormal . [facility] HospitalLamssksRTSWYXCHJW5705-30-78 10:11:00 Test Item Value Reference Range Interpretation Comments Neutrophils # (test code = Neutrophils 6.5 1.5-8.1 #) [facility] HospitalCerobwjILLFJOLTEU5060-85-01 10:11:00 Test Item Value Reference Range Interpretation Comments Lymphocytes (test code = Lymphocytes) 14.5 20.0-40.0 [facility] HospitalMdffkwrCPDCLKONVN5425-65-20 10:11:00 Test Item Value Reference Range Interpretation Comments Monocytes (test code = Monocytes) 6.7 2.0-12.0 [facility] HospitalUkamqhdYEOAJMNOOQ2342-89-52 10:11:00 Test Item Value Reference Range Interpretation Comments Segs (test code = Segs) 76.2 45.0-75.0 [facility]ATHYROID MFOWGEP4227-98-54 10:11:00 Test Item Value Reference Range Interpretation Comments Ca Norm WB (test code = Ca Norm WB) 1.13 1.05-1.25 [facility]PARATHYROID HLHPZZL1440-13-68 10:11:00 Test Item Value Reference Range Interpretation Comments Ca Ion WB (test code = Ca Ion WB) 1.17 1.05-1.25 [facility]CARD[facility]AC WFALHAJ6945-74-31 10:11:00 Test Item Value Reference Range Interpretation Comments Troponin-I (test code no gt See_Comment [Auto mated message] The = Troponin-I) system which g enerated this result transmit abdelrahman reference range : <=0.40. The reference r annemarie was not used to interpr et this result as gurpreet l/abnormal. [facility]viewCHEM GXEVV2644-12-63 10:11:00 Test Item Value Reference Range Interpretation Comments Phosphorus (test code = Phosphorus) 3.7 2.5-4.5 [facility]CHEM WXCZK5654-01-36 10:11:00 Test Item Value Reference Range Interpretation Comments Magnesium Lvl (test code = Magnesium 2.1 1.8-2.4 Lvl) [facility] HospitalAmpmaaqUOFGSGGHHZTE6240-25-76 10:11:00 Test Item Value Reference Range Interpretation Comments AGAP (test code = AGAP) 11.0 10.0-20.0 [facility] HospitalUpqomwmKLFPYXYWAEEK9707-84-10 10:11:00 Test Item Value Reference Range Interpretation Comments Creatinine Lvl (test code = Creatinine 0.90 0.50-1.40 Lvl) [facility] HospitalTcjcqflSPOKCXWHPRSH3250-90-59 10:11:00 Test Item Value Reference Range Interpretation Comments eGFR (test code = eGFR) 114 [facility] HospitalGcgcxwjRAODIJMJCOQM1592-32-32 10:11:00 Test Item Value Reference Range Interpretation Comments Calcium Lvl (test code = Calcium Lvl) 8.2 8.5-10.5 [facility] HospitalGekbyvqKLGMUIQBUKRN0386-61-50 10:11:00 Test Item Value Reference Range Interpretation Comments CO2 (test code = CO2) 25 24-32 [facility] HospitalUafmwyrZFROJDDUHQZA6295-13-27 10:11:00 Test Item Value Reference Range Interpretation Comments Chloride Lvl (test code = Chloride Lvl) 108 95-109 [facility] HospitalJhjtlerDKVKREQMESQR8569-80-87 10:11:00 Test Item Value Reference Range Interpretation Comments Potassium Lvl (test code = Potassium 4.0 3.5-5.1 Lvl) [facility] HospitalMhyflwlLLZBZQHHNMNL3745-39-32 10:11:00 Test Item Value Reference Range Interpretation Comments Sodium Lvl (test code = Sodium Lvl) 140 135-145 [facility] HospitalFzbapusAVDFULIXGUQU2218-27-59 10:11:00 Test Item Value Reference Range Interpretation Comments BUN (test code = BUN) 11 7-22 [facility] HospitalQjpydlnVIBRDULOQZCJ6429-19-13 10:11:00 Test Item Value Reference Range Interpretation Comments Glucose Lvl (test code = Glucose Lvl) 85 70-99 [facility]viewWxabdlhTYMHUAVACS2153-14-02 10:11:00 Test Item Value Reference Range Interpretation Comments MCH (test code = MCH) 27.9 pg 27.0-31.0 [place] 356078-12-14 10:11:00 Test Item Value Reference Range Interpretation Comments MCHC (test code = MCHC) 33.5 32.0-36.0 [facility] HospitalEixhtupLEDHEEHMYP1434-64-54 10:11:00 Test Item Value Reference Range Interpretation Comments Hct (test code = Hct) 36.7 42.0-54.0 [facility] HospitalQanhsfdQBUUIIEIWJ9775-32-01 10:11:00 Test Item Value Reference Range Interpretation Comments MCV (test code = MCV) 83.1 80.0-94.0 [facility] HospitalMojdlfiBWKFYSSSCF4345-08-13 10:11:00 Test Item Value Reference Range Interpretation Comments RBC (test code = RBC) 4.42 4.70-6.10 [facility] HospitalRvppjzkLSYNWKFGME6520-85-75 10:11:00 Test Item Value Reference Range Interpretation Comments Hgb (test code = Hgb) 12.3 14.0-18.0 [facility] HospitalHuayoowNCWVAOXFWY2853-49-44 10:11:00 Test Item Value Reference Range Interpretation Comments WBC (test code = WBC) 8.5 3.7-10.4 [facility] HospitalFbwwkgdTAVXKDWALK7924-52-11 10:11:00 Test Item Value Reference Range Interpretation Comments MPV (test code = MPV) 9.5 7.4-10.4 [facility] HospitalFdbxxtnPISXHQVIZD5048-91-79 10:11:00 Test Item Value Reference Range Interpretation Comments RDW (test code = RDW) 14.4 11.5-14.5 [facility] HospitalRgcyeadTNYOILUHDI1123-51-83 10:11:00 Test Item Value Reference Range Interpretation Comments Platelet (test code = Platelet) 164 133-450 [facility] HospitalFtgsuitRFPKRSLHDP7432-61-17 10:11:00 Test Item Value Reference Range Interpretation Comments Lymphocytes # (test code = Lymphocytes 1.2 1.0-5.5 #) [facility] HospitalJxmbgemRKLCOIGIJN7983-40-68 10:11:00 Test Item Value Reference Range Interpretation Comments Monocytes # (test code 0.6 See_Comment [Aut omated message] The = Monocytes #) system which generated this result tra nsmitted reference range : <=0.8. The reference r annemarie was not used to int erpret this result as normal/abnormal . [facility] HospitalSkfauxnCTRCTFCHPN7829-21-82 10:11:00 Test Item Value Reference Range Interpretation Comments Eosinophils # (test code 0.2 See_Comment [A utomated message] The = Eosinophils #) system whic h generated this result tra nsmitted reference range : <=0.5. The reference r annemarie was not used to int erpret this result as normal/abnormal . [facility] HospitalHasmdgoDXNWBQXTEL6423-85-00 10:11:00 Test Item Value Reference Range Interpretation Comments Basophils # (test code 0.0 See_Comment [Aut omated message] The = Basophils #) system which generated this result tra nsmitted reference range : <=0.2. The reference r annemarie was not used to int erpret this result as normal/abnormal . [facility] HospitalJgffrcfBIZNYPMUJL3995-86-09 10:11:00 Test Item Value Reference Range Interpretation Comments Eosinophils (test code = 2.3 See_Comment [A utomated message] The Eosinophils) system which ge nerated this result tra nsmitted reference range : <=4.0. The reference r annemarie was not used to int erpret this result as normal/abnormal . [facility] HospitalGfrilfaANOAPEIUDY2167-64-48 10:11:00 Test Item Value Reference Range Interpretation Comments Basophils (test code = 0.3 See_Comment [Aut omated message] The Basophils) system which ge nerated this result tra nsmitted reference range : <=1.0. The reference r annemarie was not used to int erpret this result as normal/abnormal . [facility] HospitalQmdkyitGEGDZRJGCM4770-25-48 10:11:00 Test Item Value Reference Range Interpretation Comments Neutrophils # (test code = Neutrophils 6.5 1.5-8.1 #) [facility] HospitalQwjgtszWKRHQHLTZN2552-00-59 10:11:00 Test Item Value Reference Range Interpretation Comments Lymphocytes (test code = Lymphocytes) 14.5 20.0-40.0 [facility] HospitalLhvggmiBPDKAFIBAE4080-35-83 10:11:00 Test Item Value Reference Range Interpretation Comments Monocytes (test code = Monocytes) 6.7 2.0-12.0 [facility] HospitalFjouanaPKKYZNBYNR8700-65-02 10:11:00 Test Item Value Reference Range Interpretation Comments Segs (test code = Segs) 76.2 45.0-75.0 [facility] HospitalATHYROID TTFUOMY8506-67-82 10:11:00 Test Item Value Reference Range Interpretation Comments Ca Norm WB (test code = Ca Norm WB) 1.13 1.05-1.25 [facility]PARATHYROID FEIBYJI8036-00-29 10:11:00 Test Item Value Reference Range Interpretation Comments Ca Ion WB (test code = Ca Ion WB) 1.17 1.05-1.25 [facility]CARD[facility]AC SAIMKII4417-96-72 10:11:00 Test Item Value Reference Range Interpretation Comments Troponin-I (test code no gt See_Comment [Auto mated message] The = Troponin-I) system which g enerated this result transmit abdelrahman reference range : <=0.40. The reference r annemarie was not used to interpr et this result as gurpreet l/abnormal. [facility]viewCHEM OKGAA6882-23-20 10:11:00 Test Item Value Reference Range Interpretation Comments Phosphorus (test code = Phosphorus) 3.7 2.5-4.5 [facility]viewCHEM GLRWJ9360-05-97 10:11:00 Test Item Value Reference Range Interpretation Comments Magnesium Lvl (test code = Magnesium 2.1 1.8-2.4 Lvl) [facility] AustinOafsocbQIFUETELFYOP0195-76-55 10:11:00 Test Item Value Reference Range Interpretation Comments AGAP (test code = AGAP) 11.0 10.0-20.0 [facility]oSibcivuWWTLYRCAVGTY1072-82-05 10:11:00 Test Item Value Reference Range Interpretation Comments Creatinine Lvl (test code = Creatinine 0.90 0.50-1.40 Lvl) [facility]oWsyefxlJFLWDJNZEDVN0508-59-80 10:11:00 Test Item Value Reference Range Interpretation Comments eGFR (test code = eGFR) 114 [facility] AustinDzzaftgAKFEMVOMTZMY8536-66-07 10:11:00 Test Item Value Reference Range Interpretation Comments Calcium Lvl (test code = Calcium Lvl) 8.2 8.5-10.5 [facility] AustinNewhiunPLHXJIGYEBKK8114-51-57 10:11:00 Test Item Value Reference Range Interpretation Comments CO2 (test code = CO2) 25 24-32 [facility]PswxvteBBNMTNMBDTGX6653-29-00 10:11:00 Test Item Value Reference Range Interpretation Comments Chloride Lvl (test code = Chloride Lvl) 108 95-109 [facility]oCfawpanGOYTFQZWNVOQ6198-84-97 10:11:00 Test Item Value Reference Range Interpretation Comments Potassium Lvl (test code = Potassium 4.0 3.5-5.1 Lvl) [facility] HospitalVvsosfgCMZKZMULMSUU2617-26-89 10:11:00 Test Item Value Reference Range Interpretation Comments Sodium Lvl (test code = Sodium Lvl) 140 135-145 [facility] HospitalFlfdinsFQGQVFHKOFCT0583-92-86 10:11:00 Test Item Value Reference Range Interpretation Comments BUN (test code = BUN) 11 7-22 [facility] HospitalZqwzwpfBGSJCATXRGIL7632-84-56 10:11:00 Test Item Value Reference Range Interpretation Comments Glucose Lvl (test code = Glucose Lvl) 85 70-99 [facility] HospitalQaauhwxHFXCXRRDFP6635-57-83 10:11:00 Test Item Value Reference Range Interpretation Comments MCH (test code = MCH) 27.9 pg 27.0-31.0 [facility] HospitalEwkkpakWKAXPNNTWW1481-41-69 10:11:00 Test Item Value Reference Range Interpretation Comments MCHC (test code = MCHC) 33.5 32.0-36.0 [facility] HospitalVjzbrlhVKPLIDVBCD6884-15-22 10:11:00 Test Item Value Reference Range Interpretation Comments Hct (test code = Hct) 36.7 42.0-54.0 [facility] HospitalKmsyrglHQTKNTUHBV3691-47-46 10:11:00 Test Item Value Reference Range Interpretation Comments MCV (test code = MCV) 83.1 80.0-94.0 [facility] HospitalJbryeosJEVVDYFEXR2669-57-46 10:11:00 Test Item Value Reference Range Interpretation Comments RBC (test code = RBC) 4.42 4.70-6.10 [facility] HospitalGebecknMFHQKCGREB9610-36-97 10:11:00 Test Item Value Reference Range Interpretation Comments Hgb (test code = Hgb) 12.3 14.0-18.0 [facility] HospitalKnnrwtrNZFGIKPSXJ4637-02-75 10:11:00 Test Item Value Reference Range Interpretation Comments WBC (test code = WBC) 8.5 3.7-10.4 [facility] HospitalDynrlmxYOAOBCHABJ2364-49-54 10:11:00 Test Item Value Reference Range Interpretation Comments MPV (test code = MPV) 9.5 7.4-10.4 [facility] HospitalRehgshxVPJQKUSDUT4767-21-99 10:11:00 Test Item Value Reference Range Interpretation Comments RDW (test code = RDW) 14.4 11.5-14.5 [facility] HospitalWxyuqtwZHFCJLQWEP0433-22-90 10:11:00 Test Item Value Reference Range Interpretation Comments Platelet (test code = Platelet) 164 133-450 [facility] HospitalOlclhpjEKGWSDYHSY9156-38-25 10:11:00 Test Item Value Reference Range Interpretation Comments Lymphocytes # (test code = Lymphocytes 1.2 1.0-5.5 #) [facility] HospitalXitnqaeQOECOBUZUH8875-21-76 10:11:00 Test Item Value Reference Range Interpretation Comments Monocytes # (test code 0.6 See_Comment [Aut omated message] The = Monocytes #) system which generated this result tra nsmitted reference range : <=0.8. The reference r annemarie was not used to int erpret this result as normal/abnormal . [facility] HospitalMizjopeJQBZCAAJHK7540-80-43 10:11:00 Test Item Value Reference Range Interpretation Comments Eosinophils # (test code 0.2 See_Comment [A utomated message] The = Eosinophils #) system whic h generated this result tra nsmitted reference range : <=0.5. The reference r annemarie was not used to int erpret this result as normal/abnormal . [facility] HospitalCgjmsrhCOEEJFJUHE6992-75-37 10:11:00 Test Item Value Reference Range Interpretation Comments Basophils # (test code 0.0 See_Comment [Aut omated message] The = Basophils #) system which generated this result tra nsmitted reference range : <=0.2. The reference r annemarie was not used to int erpret this result as normal/abnormal . [facility] HospitalTeunlnmUQTNBQHDFI9311-26-00 10:11:00 Test Item Value Reference Range Interpretation Comments Eosinophils (test code = 2.3 See_Comment [A utomated message] The Eosinophils) system which ge nerated this result tra nsmitted reference range : <=4.0. The reference r annemarie was not used to int erpret this result as normal/abnormal . [facility] HospitalXimylerIYNOGJNYDP6680-98-49 10:11:00 Test Item Value Reference Range Interpretation Comments Basophils (test code = 0.3 See_Comment [Aut omated message] The Basophils) system which ge nerated this result tra nsmitted reference range : <=1.0. The reference r annemarie was not used to int erpret this result as normal/abnormal . [facility] HospitalYpqorrxSJKXLBKYZT9509-00-27 10:11:00 Test Item Value Reference Range Interpretation Comments Neutrophils # (test code = Neutrophils 6.5 1.5-8.1 #) [facility] AustinVvfhosrRUJISPPCRC5640-29-75 10:11:00 Test Item Value Reference Range Interpretation Comments Lymphocytes (test code = Lymphocytes) 14.5 20.0-40.0 [facility] AustinYendglpQFZSWSZPCB3610-74-48 10:11:00 Test Item Value Reference Range Interpretation Comments Monocytes (test code = Monocytes) 6.7 2.0-12.0 [facility] AustinRipwfzoMXRDOFFPVM0450-17-67 10:11:00 Test Item Value Reference Range Interpretation Comments Segs (test code = Segs) 76.2 45.0-75.0 [facility] AustinannPARATHYROID [id number] 10:11:00 Test Item Value Reference Range Interpretation Comments Ca Norm WB (test code = Ca Norm WB) 1.13 1.05-1.25 [facility] AustinannPARGRACIE SQUARE HOSPITALROID [id number] 10:11:00 Test Item Value Reference Range Interpretation Comments Ca Ion WB (test code = Ca Ion WB) 1.17 1.05-1.25 [facility] [id number] 10:11:00 Test Item Value Reference Range Interpretation Comments Troponin-I (test code no gt See_Comment [Auto mated message] The = Troponin-I) system which g enerated this result transmit abdelrahman reference range : <=0.40. The reference r annemarie was not used to interpr et this result as gurpreet l/abnormal. [facility]CHE[facility] [id number] 10:11:00 Test Item Value Reference Range Interpretation Comments Phosphorus (test code = Phosphorus) 3.7 2.5-4.5 [facility] [id number] 10:11:00 Test Item Value Reference Range Interpretation Comments Magnesium Lvl (test code = Magnesium 2.1 1.8-2.4 Lvl) [facility] AustinHvyktnbJBTHBOJGFOQN4188-25-89 10:11:00 Test Item Value Reference Range Interpretation Comments AGAP (test code = AGAP) 11.0 10.0-20.0 [facility] AustinUlwxnuvFXJQKBIHTUFF3870-92-57 10:11:00 Test Item Value Reference Range Interpretation Comments Creatinine Lvl (test code = Creatinine 0.90 0.50-1.40 Lvl) [facility]RojoviqUBZJUMBCRDAQ2318-09-77 10:11:00 Test Item Value Reference Range Interpretation Comments eGFR (test code = eGFR) 114 [facility] HospitalTptskfbIDRFNBQKKUKR9825-22-44 10:11:00 Test Item Value Reference Range Interpretation Comments Calcium Lvl (test code = Calcium Lvl) 8.2 8.5-10.5 [facility] HospitalNtjmxwtBCYZPWFLDGTT8957-72-72 10:11:00 Test Item Value Reference Range Interpretation Comments CO2 (test code = CO2) 25 24-32 [facility] HospitalDentdsgOYGWCGFSPYTY9661-96-25 10:11:00 Test Item Value Reference Range Interpretation Comments Chloride Lvl (test code = Chloride Lvl) 108 95-109 [facility] HospitalZszdukpCPBVNCYNPHYD4135-94-29 10:11:00 Test Item Value Reference Range Interpretation Comments Potassium Lvl (test code = Potassium 4.0 3.5-5.1 Lvl) [facility] HospitalJgnacqfJZHUTHESOPSK4165-47-59 10:11:00 Test Item Value Reference Range Interpretation Comments Sodium Lvl (test code = Sodium Lvl) 140 135-145 [facility] HospitalZzpxndoHZYYCUISWJVM1348-33-99 10:11:00 Test Item Value Reference Range Interpretation Comments BUN (test code = BUN) 11 7-22 [facility] HospitalNioiceqXMVFAIBJAWWO6209-68-37 10:11:00 Test Item Value Reference Range Interpretation Comments Glucose Lvl (test code = Glucose Lvl) 85 70-99 [facility] HospitalYodohhrTWDLWJYGKI4183-46-27 10:11:00 Test Item Value Reference Range Interpretation Comments MCH (test code = MCH) 27.9 pg 27.0-31.0 [facility] HospitalBcxkzbbJZHGTYHSKC0594-21-23 10:11:00 Test Item Value Reference Range Interpretation Comments MCHC (test code = MCHC) 33.5 32.0-36.0 [facility] HospitalNqmvqdjXWBHKKDOOQ7250-56-57 10:11:00 Test Item Value Reference Range Interpretation Comments Hct (test code = Hct) 36.7 42.0-54.0 [facility] HospitalYjiukduBNNLZNXZAN6309-22-07 10:11:00 Test Item Value Reference Range Interpretation Comments MCV (test code = MCV) 83.1 80.0-94.0 [facility] HospitalGiygucnYRADNGKBXI8066-26-16 10:11:00 Test Item Value Reference Range Interpretation Comments RBC (test code = RBC) 4.42 4.70-6.10 [facility] HospitalFfnabibSNTRGCBLIN7769-39-88 10:11:00 Test Item Value Reference Range Interpretation Comments Hgb (test code = Hgb) 12.3 14.0-18.0 [facility] HospitalEpysmxoZRMGAQBJCD3445-07-24 10:11:00 Test Item Value Reference Range Interpretation Comments WBC (test code = WBC) 8.5 3.7-10.4 [facility] HospitalDiqxklzOQIWPDJUPV9301-96-19 10:11:00 Test Item Value Reference Range Interpretation Comments MPV (test code = MPV) 9.5 7.4-10.4 [facility] HospitalFqoywvlHFGPEMKINU2508-63-37 10:11:00 Test Item Value Reference Range Interpretation Comments RDW (test code = RDW) 14.4 11.5-14.5 [facility] HospitalMzcqgdrIAIATQOQTW3924-49-51 10:11:00 Test Item Value Reference Range Interpretation Comments Platelet (test code = Platelet) 164 133-450 [facility] HospitalAishobfAZASXKINGE5671-60-46 10:11:00 Test Item Value Reference Range Interpretation Comments Lymphocytes # (test code = Lymphocytes 1.2 1.0-5.5 #) [facility] HospitalEudzawbQUMTYPEWEB9453-90-36 10:11:00 Test Item Value Reference Range Interpretation Comments Monocytes # (test code 0.6 See_Comment [Aut omated message] The = Monocytes #) system which generated this result tra nsmitted reference range : <=0.8. The reference r annemarie was not used to int erpret this result as normal/abnormal . [facility] HospitalVemvthlOZMINRAAIM1553-66-63 10:11:00 Test Item Value Reference Range Interpretation Comments Eosinophils # (test code 0.2 See_Comment [A utomated message] The = Eosinophils #) system whic h generated this result tra nsmitted reference range : <=0.5. The reference r annemarie was not used to int erpret this result as normal/abnormal . [facility] HospitalJozinqlVYAWXNNKDB8092-64-89 10:11:00 Test Item Value Reference Range Interpretation Comments Basophils # (test code 0.0 See_Comment [Aut omated message] The = Basophils #) system which generated this result tra nsmitted reference range : <=0.2. The reference r annemarie was not used to int erpret this result as normal/abnormal . [facility]PxjbsssPKLTBUIODF0339-58-73 10:11:00 Test Item Value Reference Range Interpretation Comments Eosinophils (test code = 2.3 See_Comment [A utomated message] The Eosinophils) system which ge nerated this result tra nsmitted reference range : <=4.0. The reference r annemarie was not used to int erpret this result as normal/abnormal . [facility] HospitalMhnztrtJUGYYOQIAY0371-48-13 10:11:00 Test Item Value Reference Range Interpretation Comments Basophils (test code = 0.3 See_Comment [Aut omated message] The Basophils) system which ge nerated this result tra nsmitted reference range : <=1.0. The reference r annemarie was not used to int erpret this result as normal/abnormal . [facility] HospitalGbzvvbkXUPGEWSNLN2200-85-64 10:11:00 Test Item Value Reference Range Interpretation Comments Neutrophils # (test code = Neutrophils 6.5 1.5-8.1 #) [facility] HospitalXseaeluBHNQZZOCII6547-80-52 10:11:00 Test Item Value Reference Range Interpretation Comments Lymphocytes (test code = Lymphocytes) 14.5 20.0-40.0 [facility] HospitalGytwvwaYKMTNSRIWZ2138-63-21 10:11:00 Test Item Value Reference Range Interpretation Comments Monocytes (test code = Monocytes) 6.7 2.0-12.0 [facility] HospitalWfvvszzFGUAYSRDJJ0526-15-52 10:11:00 Test Item Value Reference Range Interpretation Comments Segs (test code = Segs) 76.2 45.0-75.0 [facility]PARATHYROID TAWEQNJ2627-86-50 10:11:00 Test Item Value Reference Range Interpretation Comments Ca Norm WB (test code = Ca Norm WB) 1.13 1.05-1.25 [facility] AustinannPARATHYROID QNWRDOX3329-14-48 10:11:00 Test Item Value Reference Range Interpretation Comments Ca Ion WB (test code = Ca Ion WB) 1.17 1.05-1.25 [facility]CARDI[facility] SGXUJNE4861-51-42 10:11:00 Test Item Value Reference Range Interpretation Comments Troponin-I (test code no gt See_Comment [Auto mated message] The = Troponin-I) system which g enerated this result transmit abdelrahman reference range : <=0.40. The reference r annemarie was not used to interpr et this result as gurpreet l/abnormal. [facility]CHEM [id number] 10:11:00 Test Item Value Reference Range Interpretation Comments Phosphorus (test code = Phosphorus) 3.7 2.5-4.5 [facility]CHE[facility] KQYBU8603-69-66 10:11:00 Test Item Value Reference Range Interpretation Comments Magnesium Lvl (test code = Magnesium 2.1 1.8-2.4 Lvl) [facility] HospitalXksbnscUMTFEQAYHNGR6516-20-57 10:11:00 Test Item Value Reference Range Interpretation Comments AGAP (test code = AGAP) 11.0 10.0-20.0 [facility] HospitalKmnkaxuCNZTXCKBCNYL5940-13-50 10:11:00 Test Item Value Reference Range Interpretation Comments Creatinine Lvl (test code = Creatinine 0.90 0.50-1.40 Lvl) [facility] HospitalTouwusjMJLVDDJVJVRF8989-67-82 10:11:00 Test Item Value Reference Range Interpretation Comments eGFR (test code = eGFR) 114 [facility] HospitalSqmetzoHPYMLBQLDXED6656-26-61 10:11:00 Test Item Value Reference Range Interpretation Comments Calcium Lvl (test code = Calcium Lvl) 8.2 8.5-10.5 [facility] HospitalHamjfscXGUKQVSUGRSS2883-97-84 10:11:00 Test Item Value Reference Range Interpretation Comments CO2 (test code = CO2) 25 24-32 [facility] HospitalGqklmilXQTYFFWDAZQU2086-93-92 10:11:00 Test Item Value Reference Range Interpretation Comments Chloride Lvl (test code = Chloride Lvl) 108 95-109 [facility] HospitalVuuggtoYKSOMVPJEJFK3616-41-44 10:11:00 Test Item Value Reference Range Interpretation Comments Potassium Lvl (test code = Potassium 4.0 3.5-5.1 Lvl) [facility] HospitalKrzsmxyJMVIBKQPKQPZ4507-42-42 10:11:00 Test Item Value Reference Range Interpretation Comments Sodium Lvl (test code = Sodium Lvl) 140 135-145 [facility] HospitalLrydtecXMBJPTUVVPCN0257-10-58 10:11:00 Test Item Value Reference Range Interpretation Comments BUN (test code = BUN) 11 7-22 [facility] HospitalQqvgzisOMJFACHKYQQL5217-51-86 10:11:00 Test Item Value Reference Range Interpretation Comments Glucose Lvl (test code = Glucose Lvl) 85 70-99 [facility]viewHjwessbRYOFVCTTFD2845-57-04 10:11:00 Test Item Value Reference Range Interpretation Comments MCH (test code = MCH) 27.9 pg 27.0-31.0 [facility] HospitalIbbveukKQDNJIFGEY7495-90-80 10:11:00 Test Item Value Reference Range Interpretation Comments MCHC (test code = MCHC) 33.5 32.0-36.0 [facility] HospitalPoanrkmOQVZAOXXHD7055-88-48 10:11:00 Test Item Value Reference Range Interpretation Comments Hct (test code = Hct) 36.7 42.0-54.0 [facility] HospitalWwftmmfMULPJNOJXS9684-66-68 10:11:00 Test Item Value Reference Range Interpretation Comments MCV (test code = MCV) 83.1 80.0-94.0 [facility] HospitalPnzkmqyOGIPHRNUAA4874-12-55 10:11:00 Test Item Value Reference Range Interpretation Comments RBC (test code = RBC) 4.42 4.70-6.10 [facility] HospitalKsvcfhkGPYXWKJCKY4166-93-09 10:11:00 Test Item Value Reference Range Interpretation Comments Hgb (test code = Hgb) 12.3 14.0-18.0 [facility] HospitalMvdhtnyOGRZGSIJBX4152-26-68 10:11:00 Test Item Value Reference Range Interpretation Comments WBC (test code = WBC) 8.5 3.7-10.4 [facility] HospitalDigbynlOUZSATHCHA0938-93-77 10:11:00 Test Item Value Reference Range Interpretation Comments MPV (test code = MPV) 9.5 7.4-10.4 [facility] HospitalMxsidhzRDVJCXANAZ5682-91-55 10:11:00 Test Item Value Reference Range Interpretation Comments RDW (test code = RDW) 14.4 11.5-14.5 [facility] HospitalAcbsiuuOVZKMJKFQR9178-03-05 10:11:00 Test Item Value Reference Range Interpretation Comments Platelet (test code = Platelet) 164 133-450 [facility] HospitalOurdcnlAOPJCIQRDT8122-56-47 10:11:00 Test Item Value Reference Range Interpretation Comments Lymphocytes # (test code = Lymphocytes 1.2 1.0-5.5 #) [facility] HospitalRbfnzzjDSYZWGQSGL1607-42-41 10:11:00 Test Item Value Reference Range Interpretation Comments Monocytes # (test code 0.6 See_Comment [Aut omated message] The = Monocytes #) system which generated this result tra nsmitted reference range : <=0.8. The reference r annemarie was not used to int erpret this result as normal/abnormal . [facility] HospitalRuegiagBEBFTKHRVI4250-54-52 10:11:00 Test Item Value Reference Range Interpretation Comments Eosinophils # (test code 0.2 See_Comment [A utomated message] The = Eosinophils #) system [facility] h generated this result tra nsmitted reference range : <=0.5. The reference r annemarie was not used to int erpret this result as normal/abnormal . [facility] HospitalWclarvzJDTPXBKMAL0747-99-79 10:11:00 Test Item Value Reference Range Interpretation Comments Basophils # (test code 0.0 See_Comment [Aut omated message] The = Basophils #) system which generated this result tra nsmitted reference range : <=0.2. The reference r annemarie was not used to int erpret this result as normal/abnormal . [facility] HospitalWizqfzrSAOJTXUXXB4831-02-47 10:11:00 Test Item Value Reference Range Interpretation Comments Eosinophils (test code = 2.3 See_Comment [A utomated message] The Eosinophils) system which ge nerated this result tra nsmitted reference range : <=4.0. The reference r annemarie was not used to int erpret this result as normal/abnormal . [facility] HospitalLsdxsfoQINYNJXJHJ2802-50-08 10:11:00 Test Item Value Reference Range Interpretation Comments Basophils (test code = 0.3 See_Comment [Aut omated message] The Basophils) system which ge nerated this result tra nsmitted reference range : <=1.0. The reference r annemarie was not used to int erpret this result as normal/abnormal . [facility] HospitalAdbfejaYUEZHIBVBE6761-53-31 10:11:00 Test Item Value Reference Range Interpretation Comments Neutrophils # (test code = Neutrophils 6.5 1.5-8.1 #) [facility] HospitalTdqcdyuLKVPBVTOJU7198-23-47 10:11:00 Test Item Value Reference Range Interpretation Comments Lymphocytes (test code = Lymphocytes) 14.5 20.0-40.0 [facility] HospitalXeaasptKNZRSESBDN5236-87-84 10:11:00 Test Item Value Reference Range Interpretation Comments Monocytes (test code = Monocytes) 6.7 2.0-12.0 [facility] HospitalKreqdftAUXNHFMDKK6427-67-78 10:11:00 Test Item Value Reference Range Interpretation Comments Segs (test code = Segs) 76.2 45.0-75.0 [facility] YMUVHSC8286-45-81 10:11:00 Test Item Value Reference Range Interpretation Comments Ca Norm WB (test code = Ca Norm WB) 1.13 1.05-1.25 [facility]PAR[facility]YROID TZWBHPC0237-02-42 10:11:00 Test Item Value Reference Range Interpretation Comments Ca Ion WB (test code = Ca Ion WB) 1.17 1.05-1.25 [facility] [id number] 06:21:00 Test Item Value Reference Range Interpretation Comments UA Sq Epi (test code = None Seen (04/13/18 UA Sq Epi) 12:21 AM) [facility] [id number] 06:21:00 Test Item Value Reference Range Interpretation Comments UA WBC (test code = 1 See_Comment [Automa abdelrahman message] The UA WBC) system which ge nerated this result transmit abdelrahman reference range : <=5. The reference range was not used to interpr et this result as gurpreet l/abnormal. [facility] [id number] 06:21:00 Test Item Value Reference Range Interpretation Comments UA RBC (test code = 1 See_Comment [Automa abdelrahman message] The UA RBC) system which ge nerated this result transmit abdelrahman reference range : <=2. The reference range was not used to interpr et this result as gurpreet l/abnormal. [facility]annGUICHO AND [id number] 06:21:00 Test Item Value Reference Range Interpretation Comments UA [place] Yeast (test code = UA Occasional /HPF [place] Yeast) [facility] [id number] 06:21:00 Test Item Value Reference Range Interpretation Comments UA Color (test code = UA Color) Ltyellow [facility] [id number] 06:21:00 Test Item Value Reference Range Interpretation Comments UA Spec Grav (test code = UA Spec 1.009 1 Grav) [facility] [id number] 06:21:00 Test Item Value Reference Range Interpretation Comments UA Turbidity (test code = Clear (04/13/18 UA Turbidity) 12:21 AM) [facility] [id number] 06:21:00 Test Item Value Reference Range Interpretation Comments UA Urobilinogen (test code = UA no gt 0.1-1.0 Urobilinogen) [facility] AND [id number] 06:21:00 Test Item Value Reference Range Interpretation Comments UA Ketones (test code Negative *NA*(04/13/18 = UA Ketones) 12:21 AM) [facility] AND [id number] 06:21:00 Test Item Value Reference Range Interpretation Comments UA Glucose (test code Negative *NA*(04/13/18 = UA Glucose) 12:21 AM) [facility] AND [id number] 06:21:00 Test Item Value Reference Range Interpretation Comments UA Leuk Est (test code Trace *ABN*(04/13/18 = UA Leuk Est) 12:21 AM) [facility] AND [id number] 06:21:00 Test Item Value Reference Range Interpretation Comments UA Nitrite (test code Negative (04/13/18 = UA Nitrite) 12:21 AM) [facility] AND [id number] 06:21:00 Test Item Value Reference Range Interpretation Comments UA Bili (test code = Negative *NA*(04/13/18 UA Bili) 12:21 AM) [facility] AND [id number] 06:21:00 Test Item Value Reference Range Interpretation Comments UA pH (test code = UA pH) 7.0 1 5.0-8.0 [facility] AND [id number] 06:21:00 Test Item Value Reference Range Interpretation Comments UA Blood (test code = Negative (04/13/18 12:21 UA Blood) AM) [facility] AND [id number] 06:21:00 Test Item Value Reference Range Interpretation Comments UA Protein (test code Negative (04/13/18 = UA Protein) 12:21 AM) [facility] AND [id number] 06:21:00 Test Item Value Reference Range Interpretation Comments UA Sq Epi (test code = None Seen (04/13/18 UA Sq Epi) 12:21 AM) [facility] AND [id number] 06:21:00 Test Item Value Reference Range Interpretation Comments UA WBC (test code = 1 See_Comment [Automa abdelrahman message] The UA WBC) system which ge nerated this result transmit abdelrahman reference range : <=5. The reference range was not used to interpr et this result as gurpreet l/abnormal. [facility] AND [id number] 06:21:00 Test Item Value Reference Range Interpretation Comments UA RBC (test code = 1 See_Comment [Automa abdelrahman message] The UA RBC) system which ge nerated this result transmit abdelrahman reference range : <=2. The reference range was not used to interpr et this result as gurpreet l/abnormal. [facility] AND [id number] 06:21:00 Test Item Value Reference Range Interpretation Comments UA [place] Yeast (test code = UA Occasional /HPF [place] Yeast) [facility] AND [id number] 06:21:00 Test Item Value Reference Range Interpretation Comments UA Color (test code = UA Color) Ltyellow [facility] AND [id number] 06:21:00 Test Item Value Reference Range Interpretation Comments UA Spec Grav (test code = UA Spec 1.009 1 Grav) [facility] AND [id number] 06:21:00 Test Item Value Reference Range Interpretation Comments UA Turbidity (test code = Clear (04/13/18 UA Turbidity) 12:21 AM) [facility] AND [id number] 06:21:00 Test Item Value Reference Range Interpretation Comments UA Urobilinogen (test code = UA no gt 0.1-1.0 Urobilinogen) [facility] AND [id number] 06:21:00 Test Item Value Reference Range Interpretation Comments UA Ketones (test code Negative *NA*(04/13/18 = UA Ketones) 12:21 AM) [facility] AND [id number] 06:21:00 Test Item Value Reference Range Interpretation Comments UA Glucose (test code Negative *NA*(04/13/18 = UA Glucose) 12:21 AM) [facility] AND [id number] 06:21:00 Test Item Value Reference Range Interpretation Comments UA Leuk Est (test code Trace *ABN*(04/13/18 = UA Leuk Est) 12:21 AM) [facility] AND [id number] 06:21:00 Test Item Value Reference Range Interpretation Comments UA Nitrite (test code Negative (04/13/18 = UA Nitrite) 12:21 AM) [facility] AND [id number] 06:21:00 Test Item Value Reference Range Interpretation Comments UA Bili (test code = Negative *NA*(04/13/18 UA Bili) 12:21 AM) [facility] [id number] 06:21:00 Test Item Value Reference Range Interpretation Comments UA pH (test code = UA pH) 7.0 1 5.0-8.0 [facility] [id number] 06:21:00 Test Item Value Reference Range Interpretation Comments UA Blood (test code = Negative (04/13/18 12:21 UA Blood) AM) [facility] [id number] 06:21:00 Test Item Value Reference Range Interpretation Comments UA Protein (test code Negative (04/13/18 = UA Protein) 12:21 AM) [facility] [id number] 06:21:00 Test Item Value Reference Range Interpretation Comments UA Sq Epi (test code = None Seen (04/13/18 UA Sq Epi) 12:21 AM) [facility] [id number] 06:21:00 Test Item Value Reference Range Interpretation Comments UA WBC (test code = 1 See_Comment [Automa abdelrahman message] The UA WBC) system which ge nerated this result transmit abdelrahman reference range : <=5. The reference range was not used to interpr et this result as gurpreet l/abnormal. [facility] [id number] 06:21:00 Test Item Value Reference Range Interpretation Comments UA RBC (test code = 1 See_Comment [Automa abdelrahman message] The UA RBC) system which ge nerated this result transmit abdelrahman reference range : <=2. The reference range was not used to interpr et this result as gurpreet l/abnormal. [facility] [id number] 06:21:00 Test Item Value Reference Range Interpretation Comments UA [place] Yeast (test code = UA Occasional /HPF [place] Yeast) [facility] [id number] 06:21:00 Test Item Value Reference Range Interpretation Comments UA Color (test code = UA Color) Ltyellow [facility] [id number] 06:21:00 Test Item Value Reference Range Interpretation Comments UA Spec Grav (test code = UA Spec 1.009 1 Grav) [facility] [id number] 06:21:00 Test Item Value Reference Range Interpretation Comments UA Turbidity (test code = Clear (04/13/18 UA Turbidity) 12:21 AM) [facility] AND [id number] 06:21:00 Test Item Value Reference Range Interpretation Comments UA Urobilinogen (test code = UA no gt 0.1-1.0 Urobilinogen) [facility] AND [id number] 06:21:00 Test Item Value Reference Range Interpretation Comments UA Ketones (test code Negative *NA*(04/13/18 = UA Ketones) 12:21 AM) [facility] AND [id number] 06:21:00 Test Item Value Reference Range Interpretation Comments UA Glucose (test code Negative *NA*(04/13/18 = UA Glucose) 12:21 AM) [facility] AND [id number] 06:21:00 Test Item Value Reference Range Interpretation Comments UA Leuk Est (test code Trace *ABN*(04/13/18 = UA Leuk Est) 12:21 AM) [facility] AND [id number] 06:21:00 Test Item Value Reference Range Interpretation Comments UA Nitrite (test code Negative (04/13/18 = UA Nitrite) 12:21 AM) [facility] AND [id number] 06:21:00 Test Item Value Reference Range Interpretation Comments UA Bili (test code = Negative *NA*(04/13/18 UA Bili) 12:21 AM) [facility] AND [id number] 06:21:00 Test Item Value Reference Range Interpretation Comments UA pH (test code = UA pH) 7.0 1 5.0-8.0 [facility] AND [id number] 06:21:00 Test Item Value Reference Range Interpretation Comments UA Blood (test code = Negative (04/13/18 12:21 UA Blood) AM) [facility] AND [id number] 06:21:00 Test Item Value Reference Range Interpretation Comments UA Protein (test code Negative (04/13/18 = UA Protein) 12:21 AM) [facility] AND [id number] 06:21:00 Test Item Value Reference Range Interpretation Comments UA Sq Epi (test code = None Seen (04/13/18 UA Sq Epi) 12:21 AM) [facility] AND [id number] 06:21:00 Test Item Value Reference Range Interpretation Comments UA WBC (test code = 1 See_Comment [Automa abdelrahman message] The UA WBC) system which ge nerated this result transmit abdelrahman reference range : <=5. The reference range was not used to interpr et this result as gurpreet l/abnormal. [facility] AND [id number] 06:21:00 Test Item Value Reference Range Interpretation Comments UA RBC (test code = 1 See_Comment [Automa abdelrahman message] The UA RBC) system which ge nerated this result transmit abdelrahman reference range : <=2. The reference range was not used to interpr et this result as gurpreet l/abnormal. [facility] AND [id number] 06:21:00 Test Item Value Reference Range Interpretation Comments UA [place] Yeast (test code = UA Occasional /HPF [place] Yeast) [facility] AND [id number] 06:21:00 Test Item Value Reference Range Interpretation Comments UA Color (test code = UA Color) Ltyellow [facility] AND [id number] 06:21:00 Test Item Value Reference Range Interpretation Comments UA Spec Grav (test code = UA Spec 1.009 1 Grav) [facility] AND [id number] 06:21:00 Test Item Value Reference Range Interpretation Comments UA Turbidity (test code = Clear (04/13/18 UA Turbidity) 12:21 AM) [facility] AND [id number] 06:21:00 Test Item Value Reference Range Interpretation Comments UA Urobilinogen (test code = UA no gt 0.1-1.0 Urobilinogen) [facility] AND [id number] 06:21:00 Test Item Value Reference Range Interpretation Comments UA Ketones (test code Negative *NA*(04/13/18 = UA Ketones) 12:21 AM) [facility] AND [id number] 06:21:00 Test Item Value Reference Range Interpretation Comments UA Glucose (test code Negative *NA*(04/13/18 = UA Glucose) 12:21 AM) [facility] AND [id number] 06:21:00 Test Item Value Reference Range Interpretation Comments UA Leuk Est (test code Trace *ABN*(04/13/18 = UA Leuk Est) 12:21 AM) [facility] [id number] 06:21:00 Test Item Value Reference Range Interpretation Comments UA Nitrite (test code Negative (04/13/18 = UA Nitrite) 12:21 AM) [facility] [id number] 06:21:00 Test Item Value Reference Range Interpretation Comments UA Bili (test code = Negative *NA*(04/13/18 UA Bili) 12:21 AM) [facility] [id number] 06:21:00 Test Item Value Reference Range Interpretation Comments UA pH (test code = UA pH) 7.0 1 5.0-8.0 [facility] [id number] 06:21:00 Test Item Value Reference Range Interpretation Comments UA Blood (test code = Negative (04/13/18 12:21 UA Blood) AM) [facility] [id number] 06:21:00 Test Item Value Reference Range Interpretation Comments UA Protein (test code Negative (04/13/18 = UA Protein) 12:21 AM) [facility] [id number] 06:21:00 Test Item Value Reference Range Interpretation Comments UA Sq Epi (test code = None Seen (04/13/18 UA Sq Epi) 12:21 AM) [facility] [id number] 06:21:00 Test Item Value Reference Range Interpretation Comments UA WBC (test code = 1 See_Comment [Automa abdelrahman message] The UA WBC) system which ge nerated this result transmit abdelrahman reference range : <=5. The reference range was not used to interpr et this result as gurpreet l/abnormal. [facility] [id number] 06:21:00 Test Item Value Reference Range Interpretation Comments UA RBC (test code = 1 See_Comment [Automa abdelrahman message] The UA RBC) system which ge nerated this result transmit abdelrahman reference range : <=2. The reference range was not used to interpr et this result as gurpreet l/abnormal. [facility] [id number] 06:21:00 Test Item Value Reference Range Interpretation Comments UA [place] Yeast (test code = UA Occasional /HPF [place] Yeast) [facility] [id number] 06:21:00 Test Item Value Reference Range Interpretation Comments UA Color (test code = UA Color) Ltyellow [facility] AND [id number] 06:21:00 Test Item Value Reference Range Interpretation Comments UA Spec Grav (test code = UA Spec 1.009 1 Grav) [facility] AND [id number] 06:21:00 Test Item Value Reference Range Interpretation Comments UA Turbidity (test code = Clear (04/13/18 UA Turbidity) 12:21 AM) [facility] AND [id number] 06:21:00 Test Item Value Reference Range Interpretation Comments UA Urobilinogen (test code = UA no gt 0.1-1.0 Urobilinogen) [facility] AND [id number] 06:21:00 Test Item Value Reference Range Interpretation Comments UA Ketones (test code Negative *NA*(04/13/18 = UA Ketones) 12:21 AM) [facility] AND [id number] 06:21:00 Test Item Value Reference Range Interpretation Comments UA Glucose (test code Negative *NA*(04/13/18 = UA Glucose) 12:21 AM) [facility] AND [id number] 06:21:00 Test Item Value Reference Range Interpretation Comments UA Leuk Est (test code Trace *ABN*(04/13/18 = UA Leuk Est) 12:21 AM) [facility] AND [id number] 06:21:00 Test Item Value Reference Range Interpretation Comments UA Nitrite (test code Negative (04/13/18 = UA Nitrite) 12:21 AM) [facility] AND [id number] 06:21:00 Test Item Value Reference Range Interpretation Comments UA Bili (test code = Negative *NA*(04/13/18 UA Bili) 12:21 AM) [facility] AND [id number] 06:21:00 Test Item Value Reference Range Interpretation Comments UA pH (test code = UA pH) 7.0 1 5.0-8.0 [facility] AND [id number] 06:21:00 Test Item Value Reference Range Interpretation Comments UA Blood (test code = Negative (04/13/18 12:21 UA Blood) AM) [facility] [id number] 06:21:00 Test Item Value Reference Range Interpretation Comments UA Protein (test code Negative (04/13/18 = UA Protein) 12:21 AM) [facility] [id number] 06:21:00 Test Item Value Reference Range Interpretation Comments UA Sq Epi (test code = None Seen (04/13/18 UA Sq Epi) 12:21 AM) [facility] [id number] 06:21:00 Test Item Value Reference Range Interpretation Comments UA WBC (test code = 1 See_Comment [Automa abdelrahman message] The UA WBC) system which ge nerated this result transmit abdelrahman reference range : <=5. The reference range was not used to interpr et this result as gurpreet l/abnormal. [facility] [id number] 06:21:00 Test Item Value Reference Range Interpretation Comments UA RBC (test code = 1 See_Comment [Automa abdelrahman message] The UA RBC) system which ge nerated this result transmit abdelrahman reference range : <=2. The reference range was not used to interpr et this result as gurpreet l/abnormal. [facility] [id number] 06:21:00 Test Item Value Reference Range Interpretation Comments UA [place] Yeast (test code = UA Occasional /HPF [place] Yeast) [facility] AND [id number] 06:21:00 Test Item Value Reference Range Interpretation Comments UA Color (test code = UA Color) Ltyellow [facility] AND [id number] 06:21:00 Test Item Value Reference Range Interpretation Comments UA Spec Grav (test code = UA Spec 1.009 1 Grav) [facility] AND [id number] 06:21:00 Test Item Value Reference Range Interpretation Comments UA Turbidity (test code = Clear (04/13/18 UA Turbidity) 12:21 AM) [facility] [id number] 06:21:00 Test Item Value Reference Range Interpretation Comments UA Urobilinogen (test code = UA no gt 0.1-1.0 Urobilinogen) [facility] [id number] 06:21:00 Test Item Value Reference Range Interpretation Comments UA Ketones (test code Negative *NA*(12/14/18 = UA Ketones) 12:21 AM) [facility] [id number] 06:21:00 Test Item Value Reference Range Interpretation Comments UA Glucose (test code Negative *NA*(04/13/18 = UA Glucose) 12:21 AM) [facility] [id number] 06:21:00 Test Item Value Reference Range Interpretation Comments UA Leuk Est (test code Trace *ABN*(04/13/18 = UA Leuk Est) 12:21 AM) [facility] AND [id number] 06:21:00 Test Item Value Reference Range Interpretation Comments UA Nitrite (test code Negative (04/13/18 = UA Nitrite) 12:21 AM) [facility] AND [id number] 06:21:00 Test Item Value Reference Range Interpretation Comments UA Bili (test code = Negative *NA*(04/13/18 UA Bili) 12:21 AM) [facility] AND [id number] 06:21:00 Test Item Value Reference Range Interpretation Comments UA pH (test code = UA pH) 7.0 1 5.0-8.0 [facility] AND [id number] 06:21:00 Test Item Value Reference Range Interpretation Comments UA Blood (test code = Negative (04/13/18 12:21 UA Blood) AM) [facility] AND [id number] 06:21:00 Test Item Value Reference Range Interpretation Comments UA Protein (test code Negative (04/13/18 = UA Protein) 12:21 AM) [facility] AND [id number] 06:21:00 Test Item Value Reference Range Interpretation Comments UA Sq Epi (test code = None Seen (04/13/18 UA Sq Epi) 12:21 AM) [facility] AND [id number] 06:21:00 Test Item Value Reference Range Interpretation Comments UA WBC (test code = 1 See_Comment [Automa abdelrahman message] The UA WBC) system which ge nerated this result transmit abdelarhman reference range : <=5. The reference range was not used to interpr et this result as gurpreet l/abnormal. [facility] [id number] 06:21:00 Test Item Value Reference Range Interpretation Comments UA RBC (test code = 1 See_Comment [Automa abdelrahman message] The UA RBC) system which ge nerated this result transmit abdelrahman reference range : <=2. The reference range was not used to interpr et this result as gurpreet l/abnormal. [facility] AND [id number] 06:21:00 Test Item Value Reference Range Interpretation Comments UA [place] Yeast (test code = UA Occasional /HPF [place] Yeast) [facility] AND [id number] 06:21:00 Test Item Value Reference Range Interpretation Comments UA Color (test code = UA Color) Ltyellow [facility] AND [id number] 06:21:00 Test Item Value Reference Range Interpretation Comments UA Spec Grav (test code = UA Spec 1.009 1 Grav) [facility] AND [id number] 06:21:00 Test Item Value Reference Range Interpretation Comments UA Turbidity (test code = Clear (04/13/18 UA Turbidity) 12:21 AM) [facility] AND [id number] 06:21:00 Test Item Value Reference Range Interpretation Comments UA Urobilinogen (test code = UA no gt 0.1-1.0 Urobilinogen) [facility] AND [id number] 06:21:00 Test Item Value Reference Range Interpretation Comments UA Ketones (test code Negative *NA*(04/13/18 = UA Ketones) 12:21 AM) [facility] AND [id number] 06:21:00 Test Item Value Reference Range Interpretation Comments UA Glucose (test code Negative *NA*(04/13/18 = UA Glucose) 12:21 AM) [facility] AND [id number] 06:21:00 Test Item Value Reference Range Interpretation Comments UA Leuk Est (test code Trace *ABN*(04/13/18 = UA Leuk Est) 12:21 AM) [facility] AND [id number] 06:21:00 Test Item Value Reference Range Interpretation Comments UA Nitrite (test code Negative (04/13/18 = UA Nitrite) 12:21 AM) [facility] AND [id number] 06:21:00 Test Item Value Reference Range Interpretation Comments UA Bili (test code = Negative *NA*(04/13/18 UA Bili) 12:21 AM) [facility] AND [id number] 06:21:00 Test Item Value Reference Range Interpretation Comments UA pH (test code = UA pH) 7.0 1 5.0-8.0 [facility] [id number] 06:21:00 Test Item Value Reference Range Interpretation Comments UA Blood (test code = Negative (04/13/18 12:21 UA Blood) AM) [facility] [id number] 06:21:00 Test Item Value Reference Range Interpretation Comments UA Protein (test code Negative (04/13/18 = UA Protein) 12:21 AM) [facility] AND [id number] 06:21:00 Test Item Value Reference Range Interpretation Comments UA Sq Epi (test code = None Seen (04/13/18 UA Sq Epi) 12:21 AM) [facility] AND [id number] 06:21:00 Test Item Value Reference Range Interpretation Comments UA WBC (test code = 1 See_Comment [Automa abdelrahman message] The UA WBC) system which ge nerated this result transmit abdelrahman reference range : <=5. The reference range was not used to interpr et this result as gurpreet l/abnormal. [facility] [id number] 06:21:00 Test Item Value Reference Range Interpretation Comments UA RBC (test code = 1 See_Comment [Automa abdelrahman message] The UA RBC) system which ge nerated this result transmit abdelrahman reference range : <=2. The reference range was not used to interpr et this result as gurpreet l/abnormal. [facility] [id number] 06:21:00 Test Item Value Reference Range Interpretation Comments UA [place] Yeast (test code = UA Occasional /HPF [place] Yeast) [facility] AND [id number] 06:21:00 Test Item Value Reference Range Interpretation Comments UA Color (test code = UA Color) Ltyellow [facility] AND [id number] 06:21:00 Test Item Value Reference Range Interpretation Comments UA Spec Grav (test code = UA Spec 1.009 1 Grav) [facility] AND [id number] 06:21:00 Test Item Value Reference Range Interpretation Comments UA Turbidity (test code = Clear (04/13/18 UA Turbidity) 12:21 AM) [facility] AND [id number] 06:21:00 Test Item Value Reference Range Interpretation Comments UA Urobilinogen (test code = UA no gt 0.1-1.0 Urobilinogen) [facility] AND [id number] 06:21:00 Test Item Value Reference Range Interpretation Comments UA Ketones (test code Negative *NA*(04/13/18 = UA Ketones) 12:21 AM) [facility] AND [id number] 06:21:00 Test Item Value Reference Range Interpretation Comments UA Glucose (test code Negative *NA*(04/13/18 = UA Glucose) 12:21 AM) [facility] AND [id number] 06:21:00 Test Item Value Reference Range Interpretation Comments UA Leuk Est (test code Trace *ABN*(04/13/18 = UA Leuk Est) 12:21 AM) [facility] AND [id number] 06:21:00 Test Item Value Reference Range Interpretation Comments UA Nitrite (test code Negative (04/13/18 = UA Nitrite) 12:21 AM) [facility] AND [id number] 06:21:00 Test Item Value Reference Range Interpretation Comments UA Bili (test code = Negative *NA*(04/13/18 UA Bili) 12:21 AM) [facility] AND [id number] 06:21:00 Test Item Value Reference Range Interpretation Comments UA pH (test code = UA pH) 7.0 1 5.0-8.0 [facility] AND [id number] 06:21:00 Test Item Value Reference Range Interpretation Comments UA Blood (test code = Negative (04/13/18 12:21 UA Blood) AM) [facility] AND [id number] 06:21:00 Test Item Value Reference Range Interpretation Comments UA Protein (test code Negative (04/13/18 = UA Protein) 12:21 AM) [facility] AND [id number] 06:21:00 Test Item Value Reference Range Interpretation Comments UA Sq Epi (test code = None Seen (04/13/18 UA Sq Epi) 12:21 AM) [facility] AND [id number] 06:21:00 Test Item Value Reference Range Interpretation Comments UA WBC (test code = 1 See_Comment [Automa abdelrahman message] The UA WBC) system which ge nerated this result transmit abdelrahman reference range : <=5. The reference range was not used to interpr et this result as gurpreet l/abnormal. [facility] AND [id number] 06:21:00 Test Item Value Reference Range Interpretation Comments UA RBC (test code = 1 See_Comment [Automa abdelrahman message] The UA RBC) system which ge nerated this result transmit abdelrahman reference range : <=2. The reference range was not used to interpr et this result as gurpreet l/abnormal. [facility] AND [id number] 06:21:00 Test Item Value Reference Range Interpretation Comments UA [place] Yeast (test code = UA Occasional /HPF [place] Yeast) [facility] AND [id number] 06:21:00 Test Item Value Reference Range Interpretation Comments UA Color (test code = UA Color) [place]ellow [facility] AND [id number] 06:21:00 Test Item Value Reference Range Interpretation Comments UA Spec Grav (test code = UA Spec 1.009 1 Grav) [facility] AND [id number] 06:21:00 Test Item Value Reference Range Interpretation Comments UA Turbidity (test code = Clear (04/13/18 UA Turbidity) 12:21 AM) [facility] AND [id number] 06:21:00 Test Item Value Reference Range Interpretation Comments UA Urobilinogen (test code = UA no gt 0.1-1.0 Urobilinogen) [facility] AND [id number] 06:21:00 Test Item Value Reference Range Interpretation Comments UA Ketones (test code Negative *NA*(04/13/18 = UA Ketones) 12:21 AM) [facility] AND [id number] 06:21:00 Test Item Value Reference Range Interpretation Comments UA Glucose (test code Negative *NA*(04/13/18 = UA Glucose) 12:21 AM) [facility] AND [id number] 06:21:00 Test Item Value Reference Range Interpretation Comments UA Leuk Est (test code Trace *ABN*(04/13/18 = UA Leuk Est) 12:21 AM) [facility] AND [id number] 06:21:00 Test Item Value Reference Range Interpretation Comments UA Nitrite (test code Negative (04/13/18 = UA Nitrite) 12:21 AM) [facility] AND [id number] 06:21:00 Test Item Value Reference Range Interpretation Comments UA Bili (test code = Negative *NA*(04/13/18 UA Bili) 12:21 AM) [facility] AND [id number] 06:21:00 Test Item Value Reference Range Interpretation Comments UA pH (test code = UA pH) 7.0 1 5.0-8.0 [facility] AND [id number] 06:21:00 Test Item Value Reference Range Interpretation Comments UA Blood (test code = Negative (04/13/18 12:21 UA Blood) AM) [facility] AND [id number] 06:21:00 Test Item Value Reference Range Interpretation Comments UA Protein (test code Negative (04/13/18 = UA Protein) 12:21 AM) [facility] AND [id number] 06:21:00 Test Item Value Reference Range Interpretation Comments UA Sq Epi (test code = None Seen (04/13/18 UA Sq Epi) 12:21 AM) [facility] AND [id number] 06:21:00 Test Item Value Reference Range Interpretation Comments UA WBC (test code = 1 See_Comment [Automa abdelrahman message] The UA WBC) system which ge nerated this result transmit abdelrahman reference range : <=5. The reference range was not used to interpr et this result as gurpreet l/abnormal. [facility] AND [id number] 06:21:00 Test Item Value Reference Range Interpretation Comments UA RBC (test code = 1 See_Comment [Automa abdelrahman message] The UA RBC) system which ge nerated this result transmit abdelrahman reference range : <=2. The reference range was not used to interpr et this result as gurpreet l/abnormal. [facility] AND [id number] 06:21:00 Test Item Value Reference Range Interpretation Comments UA [place] Yeast (test code = UA Occasional /HPF [place] Yeast) [facility] AND [id number] 06:21:00 Test Item Value Reference Range Interpretation Comments UA Color (test code = UA Color) [place] [facility] AND [id number] 06:21:00 Test Item Value Reference Range Interpretation Comments UA Spec Grav (test code = UA Spec 1.009 1 Grav) [facility] [id number] 06:21:00 Test Item Value Reference Range Interpretation Comments UA Turbidity (test code = Clear (04/13/18 UA Turbidity) 12:21 AM) [facility] [id number] 06:21:00 Test Item Value Reference Range Interpretation Comments UA Urobilinogen (test code = UA no gt 0.1-1.0 Urobilinogen) [facility] [id number] 06:21:00 Test Item Value Reference Range Interpretation Comments UA Ketones (test code Negative *NA*(04/13/18 = UA Ketones) 12:21 AM) [facility] [id number] 06:21:00 Test Item Value Reference Range Interpretation Comments UA Glucose (test code Negative *NA*(04/13/18 = UA Glucose) 12:21 AM) [facility] [id number] 06:21:00 Test Item Value Reference Range Interpretation Comments UA Leuk Est (test code Trace *ABN*(04/13/18 = UA Leuk Est) 12:21 AM) [facility] [id number] 06:21:00 Test Item Value Reference Range Interpretation Comments UA Nitrite (test code Negative (04/13/18 = UA Nitrite) 12:21 AM) [facility] [id number] 06:21:00 Test Item Value Reference Range Interpretation Comments UA Bili (test code = Negative *NA*(04/13/18 UA Bili) 12:21 AM) [facility] [id number] 06:21:00 Test Item Value Reference Range Interpretation Comments UA pH (test code = UA pH) 7.0 1 5.0-8.0 [facility] [id number] 06:21:00 Test Item Value Reference Range Interpretation Comments UA Blood (test code = Negative (04/13/18 12:21 UA Blood) AM) [facility] [id number] 06:21:00 Test Item Value Reference Range Interpretation Comments UA Protein (test code Negative (04/13/18 = UA Protein) 12:21 AM) [facility] [id number] 05:42:00 Test Item Value Reference Range Interpretation Comments Troponin-I (test code no gt See_Comment [Auto mated message] The = Troponin-I) system which g enerated this result transmit abdelrahman reference range : <=0.40. The reference r annemarie was not used to interpr et this result as gurpreet l/abnormal. [facility] [id number] 05:42:00 Test Item Value Reference Range Interpretation Comments HIV Ag/Ab 4th Gen Negative *NA*(04/12/18 (test code = HIV 11:42 PM) Ag/Ab 4th Gen) [facility] [id number] 05:42:00 Test Item Value Reference Range Interpretation Comments Troponin-I (test code no gt See_Comment [Auto mated message] The = Troponin-I) system which g enerated this result transmit abdelrahman reference range : <=0.40. The reference r annemarie was not used to interpr et this result as gurpreet l/abnormal. [facility] [id number] 05:42:00 Test Item Value Reference Range Interpretation Comments HIV Ag/Ab 4th Gen Negative *NA*(04/12/18 (test code = HIV 11:42 PM) Ag/Ab 4th Gen) [facility] [id number] 05:42:00 Test Item Value Reference Range Interpretation Comments Troponin-I (test code no gt See_Comment [Auto mated message] The = Troponin-I) system which g enerated this result transmit abdelrahman reference range : <=0.40. The reference r annemarie was not used to interpr et this result as gurpreet l/abnormal. [facility] [id number] 05:42:00 Test Item Value Reference Range Interpretation Comments HIV Ag/Ab 4th Gen Negative *NA*(04/12/18 (test code = HIV 11:42 PM) Ag/Ab 4th Gen) [facility] [id number] 05:42:00 Test Item Value Reference Range Interpretation Comments Troponin-I (test code no gt See_Comment [Auto mated message] The = Troponin-I) system which g enerated this result transmit abdelrahman reference range : <=0.40. The reference r annemarie was not used to interpr et this result as gurpreet l/abnormal. [facility] [id number] 05:42:00 Test Item Value Reference Range Interpretation Comments HIV Ag/Ab 4th Gen Negative *NA*(04/12/18 (test code = HIV 11:42 PM) Ag/Ab 4th Gen) [facility] [employer]2018-12-14 05:42:00 Test Item Value Reference Range Interpretation Comments Troponin-I (test code no gt See_Comment [Auto mated message] The = Troponin-I) system which g enerated this result transmit abdelrahman reference range : <=0.40. The reference r annemarie was not used to interpr et this result as gurpreet l/abnormal. [facility] [id number] 05:42:00 Test Item Value Reference Range Interpretation Comments HIV Ag/Ab 4th Gen Negative *NA*(04/12/18 (test code = HIV 11:42 PM) Ag/Ab 4th Gen) [facility] [employer] [id number] 05:42:00 Test Item Value Reference Range Interpretation Comments Troponin-I (test code no gt See_Comment [Auto mated message] The = Troponin-I) system which g enerated this result transmit abdelrahman reference range : <=0.40. The reference r annemarie was not used to interpr et this result as gurpreet l/abnormal. [facility] [id number] 05:42:00 Test Item Value Reference Range Interpretation Comments HIV Ag/Ab 4th Gen Negative *NA*(04/12/18 (test code = HIV 11:42 PM) Ag/Ab 4th Gen) [facility] [employer]2018-12-14 05:42:00 Test Item Value Reference Range Interpretation Comments Troponin-I (test code no gt See_Comment [Auto mated message] The = Troponin-I) system which g enerated this result transmit abdelrahman reference range : <=0.40. The reference r annemarie was not used to interpr et this result as gurpreet l/abnormal. [facility] [id number] 05:42:00 Test Item Value Reference Range Interpretation Comments HIV Ag/Ab 4th Gen Negative *NA*(04/12/18 (test code = HIV 11:42 PM) Ag/Ab 4th Gen) [facility] [employer]2018-12-14 05:42:00 Test Item Value Reference Range Interpretation Comments Troponin-I (test code no gt See_Comment [Auto mated message] The = Troponin-I) system which g enerated this result transmit abdelrahman reference range : <=0.40. The reference r annemarie was not used to interpr et this result as gurpreet l/abnormal. [facility] [id number] 05:42:00 Test Item Value Reference Range Interpretation Comments HIV Ag/Ab 4th Gen Negative *NA*(04/12/18 (test code = HIV 11:42 PM) Ag/Ab 4th Gen) [facility] [employer] [id number] 05:42:00 Test Item Value Reference Range Interpretation Comments Troponin-I (test code no gt See_Comment [Auto mated message] The = Troponin-I) system which g enerated this result transmit abdelrahman reference range : <=0.40. The reference r annemarie was not used to interpr et this result as gurpreet l/abnormal. [facility] [id number] 05:42:00 Test Item Value Reference Range Interpretation Comments HIV Ag/Ab 4th Gen Negative *NA*(04/12/18 (test code = HIV 11:42 PM) Ag/Ab 4th Gen) [facility] [employer] [id number] 05:42:00 Test Item Value Reference Range Interpretation Comments Troponin-I (test code no gt See_Comment [Auto mated message] The = Troponin-I) system which g enerated this result transmit abdelrahman reference range : <=0.40. The reference r annemarie was not used to interpr et this result as gurpreet l/abnormal. [facility] [id number] 05:42:00 Test Item Value Reference Range Interpretation Comments HIV Ag/Ab 4th Gen Negative *NA*(04/12/18 (test code = HIV 11:42 PM) Ag/Ab 4th Gen) [facility] [employer] - [id number] 05:18:00 Test Item Value Reference Range Interpretation Comments MRSA by PCR (test Negative (04/12/18 11:18 code = MRSA by PCR) PM) [facility] [employer] - [id number] 05:18:00 Test Item Value Reference Range Interpretation Comments MRSA by PCR (test Negative (04/12/18 11:18 code = MRSA by PCR) PM) [facility] [id number] 05:18:00 Test Item Value Reference Range Interpretation Comments MRSA by PCR (test Negative (04/12/18 11:18 code = MRSA by PCR) PM) [facility] - [id number] 05:18:00 Test Item Value Reference Range Interpretation Comments MRSA by PCR (test Negative (04/12/18 11:18 code = MRSA by PCR) PM) [facility] - [id number] 05:18:00 Test Item Value Reference Range Interpretation Comments MRSA by PCR (test Negative (04/12/18 11:18 code = MRSA by PCR) PM) [facility] - [id number] 05:18:00 Test Item Value Reference Range Interpretation Comments MRSA by PCR (test Negative (04/12/18 11:18 code = MRSA by PCR) PM) [facility] - [id number] 05:18:00 Test Item Value Reference Range Interpretation Comments MRSA by PCR (test Negative (04/12/18 11:18 code = MRSA by PCR) PM) [facility] - [id number] 05:18:00 Test Item Value Reference Range Interpretation Comments MRSA by PCR (test Negative (04/12/18 11:18 code = MRSA by PCR) PM) [facility] - [id number] 05:18:00 Test Item Value Reference Range Interpretation Comments MRSA by PCR (test Negative (04/12/18 11:18 code = MRSA by PCR) PM) [facility] - [id number] 05:18:00 Test Item Value Reference Range Interpretation Comments MRSA by PCR (test Negative (04/12/18 11:18 code = MRSA by PCR) PM) [facility] [id number] 23:22:00 Test Item Value Reference Range Interpretation Comments U Odalys Scr (test code Negative *NA*(04/12/18 = U Odalys Scr) 5:22 PM) [facility] [id number] 23:22:00 Test Item Value Reference Range Interpretation Comments U Benzodiaz Scr (test Negative *NA*(04/12/18 code = U Benzodiaz Scr) 5:22 PM) [facility] [id number] 23:22:00 Test Item Value Reference Range Interpretation Comments U Amph Scr (test code Negative *NA*(04/12/18 = U Amph Scr) 5:22 PM) [facility] [id number] 23:22:00 Test Item Value Reference Range Interpretation Comments U Cocaine Scr (test Negative *NA*(04/12/18 code = U Cocaine Scr) 5:22 PM) [facility] [id number] 23:22:00 Test Item Value Reference Range Interpretation Comments U Opiate Scr (test Negative *NA*(04/12/18 code = U Opiate Scr) 5:22 PM) [facility] [id number] 23:22:00 Test Item Value Reference Range Interpretation Comments UDS Note (test code = See Note (04/12/18 5:22 UDS Note) PM) [facility] [id number] 23:22:00 Test Item Value Reference Range Interpretation Comments U Cannab Scr (test Negative *NA*(04/12/18 code = U Cannab Scr) 5:22 PM) [facility] [id number] 23:22:00 Test Item Value Reference Range Interpretation Comments U Phencyclidine Scr (test Negative code = U Phencyclidine *NA*(04/12/18 5:22 Scr) PM) [facility] [id number] 23:22:00 Test Item Value Reference Range Interpretation Comments U Odalys Scr (test code Negative *NA*(04/12/18 = U Odalys Scr) 5:22 PM) [facility] [id number] 23:22:00 Test Item Value Reference Range Interpretation Comments U Benzodiaz Scr (test Negative *NA*(04/12/18 code = U Benzodiaz Scr) 5:22 PM) [facility] [id number] 23:22:00 Test Item Value Reference Range Interpretation Comments U Amph Scr (test code Negative *NA*(04/12/18 = U Amph Scr) 5:22 PM) [facility] [id number] 23:22:00 Test Item Value Reference Range Interpretation Comments U Cocaine Scr (test Negative *NA*(04/12/18 code = U Cocaine Scr) 5:22 PM) [facility] [id number] 23:22:00 Test Item Value Reference Range Interpretation Comments U Opiate Scr (test Negative *NA*(04/12/18 code = U Opiate Scr) 5:22 PM) [facility] [id number] 23:22:00 Test Item Value Reference Range Interpretation Comments UDS Note (test code = See Note (04/12/18 5:22 UDS Note) PM) [facility] [id number] 23:22:00 Test Item Value Reference Range Interpretation Comments U Cannab Scr (test Negative *NA*(04/12/18 code = U Cannab Scr) 5:22 PM) [facility] [id number] 23:22:00 Test Item Value Reference Range Interpretation Comments U Phencyclidine Scr (test Negative code = U Phencyclidine *NA*(04/12/18 5:22 Scr) PM) [facility] [id number] 23:22:00 Test Item Value Reference Range Interpretation Comments U Odalys Scr (test code Negative *NA*(04/12/18 = U Odalys Scr) 5:22 PM) [facility] [id number] 23:22:00 Test Item Value Reference Range Interpretation Comments U Benzodiaz Scr (test Negative *NA*(04/12/18 code = U Benzodiaz Scr) 5:22 PM) [facility] [id number] 23:22:00 Test Item Value Reference Range Interpretation Comments U Amph Scr (test code Negative *NA*(04/12/18 = U Amph Scr) 5:22 PM) [facility] [id number] 23:22:00 Test Item Value Reference Range Interpretation Comments U Cocaine Scr (test Negative *NA*(04/12/18 code = U Cocaine Scr) 5:22 PM) [facility] [id number] 23:22:00 Test Item Value Reference Range Interpretation Comments U Opiate Scr (test Negative *NA*(04/12/18 code = U Opiate Scr) 5:22 PM) [facility] [id number] 23:22:00 Test Item Value Reference Range Interpretation Comments UDS Note (test code = See Note (04/12/18 5:22 UDS Note) PM) [facility] [id number] 23:22:00 Test Item Value Reference Range Interpretation Comments U Cannab Scr (test Negative *NA*(04/12/18 code = U Cannab Scr) 5:22 PM) [facility] [id number] 23:22:00 Test Item Value Reference Range Interpretation Comments U Phencyclidine Scr (test Negative code = U Phencyclidine *NA*(04/12/18 5:22 Scr) PM) [facility] [id number] 23:22:00 Test Item Value Reference Range Interpretation Comments U Odalys Scr (test code Negative *NA*(04/12/18 = U Odalys Scr) 5:22 PM) [facility] [id number] 23:22:00 Test Item Value Reference Range Interpretation Comments U Benzodiaz Scr (test Negative *NA*(04/12/18 code = U Benzodiaz Scr) 5:22 PM) [facility] [id number] 23:22:00 Test Item Value Reference Range Interpretation Comments U Amph Scr (test code Negative *NA*(04/12/18 = U Amph Scr) 5:22 PM) [facility] [id number] 23:22:00 Test Item Value Reference Range Interpretation Comments U Cocaine Scr (test Negative *NA*(04/12/18 code = U Cocaine Scr) 5:22 PM) [facility] [id number] 23:22:00 Test Item Value Reference Range Interpretation Comments U Opiate Scr (test Negative *NA*(04/12/18 code = U Opiate Scr) 5:22 PM) [facility] [id number] 23:22:00 Test Item Value Reference Range Interpretation Comments UDS Note (test code = See Note (04/12/18 5:22 UDS Note) PM) [facility] [id number] 23:22:00 Test Item Value Reference Range Interpretation Comments U Cannab Scr (test Negative *NA*(04/12/18 code = U Cannab Scr) 5:22 PM) [facility] [id number] 23:22:00 Test Item Value Reference Range Interpretation Comments U Phencyclidine Scr (test Negative code = U Phencyclidine *NA*(04/12/18 5:22 Scr) PM) [facility] [id number] 23:22:00 Test Item Value Reference Range Interpretation Comments U Odalys Scr (test code Negative *NA*(04/12/18 = U Odalys Scr) 5:22 PM) [facility] [id number] 23:22:00 Test Item Value Reference Range Interpretation Comments U Benzodiaz Scr (test Negative *NA*(04/12/18 code = U Benzodiaz Scr) 5:22 PM) [facility] [id number] 23:22:00 Test Item Value Reference Range Interpretation Comments U Amph Scr (test code Negative *NA*(04/12/18 = U Amph Scr) 5:22 PM) [facility] [id number] 23:22:00 Test Item Value Reference Range Interpretation Comments U Cocaine Scr (test Negative *NA*(04/12/18 code = U Cocaine Scr) 5:22 PM) [facility] [id number] 23:22:00 Test Item Value Reference Range Interpretation Comments U Opiate Scr (test Negative *NA*(04/12/18 code = U Opiate Scr) 5:22 PM) [facility] [id number] 23:22:00 Test Item Value Reference Range Interpretation Comments UDS Note (test code = See Note (04/12/18 5:22 UDS Note) PM) [facility] [id number] 23:22:00 Test Item Value Reference Range Interpretation Comments U Cannab Scr (test Negative *NA*(04/12/18 code = U Cannab Scr) 5:22 PM) [facility] [id number] 23:22:00 Test Item Value Reference Range Interpretation Comments U Phencyclidine Scr (test Negative code = U Phencyclidine *NA*(04/12/18 5:22 Scr) PM) [facility] [id number] 23:22:00 Test Item Value Reference Range Interpretation Comments U Odalys Scr (test code Negative *NA*(04/12/18 = U Odalys Scr) 5:22 PM) [facility] [id number] 23:22:00 Test Item Value Reference Range Interpretation Comments U Benzodiaz Scr (test Negative *NA*(04/12/18 code = U Benzodiaz Scr) 5:22 PM) [facility] [id number] 23:22:00 Test Item Value Reference Range Interpretation Comments U Amph Scr (test code Negative *NA*(04/12/18 = U Amph Scr) 5:22 PM) [facility] [id number] 23:22:00 Test Item Value Reference Range Interpretation Comments U Cocaine Scr (test Negative *NA*(04/12/18 code = U Cocaine Scr) 5:22 PM) [facility] [id number] 23:22:00 Test Item Value Reference Range Interpretation Comments U Opiate Scr (test Negative *NA*(04/12/18 code = U Opiate Scr) 5:22 PM) [facility] [id number] 23:22:00 Test Item Value Reference Range Interpretation Comments UDS Note (test code = See Note (04/12/18 5:22 UDS Note) PM) [facility] [id number] 23:22:00 Test Item Value Reference Range Interpretation Comments U Cannab Scr (test Negative *NA*(04/12/18 code = U Cannab Scr) 5:22 PM) [facility] [id number] 23:22:00 Test Item Value Reference Range Interpretation Comments U Phencyclidine Scr (test Negative code = U Phencyclidine *NA*(04/12/18 5:22 Scr) PM) [facility] [id number] 23:22:00 Test Item Value Reference Range Interpretation Comments U Odlays Scr (test code Negative *NA*(04/12/18 = U Odalys Scr) 5:22 PM) [facility] [id number] 23:22:00 Test Item Value Reference Range Interpretation Comments U Benzodiaz Scr (test Negative *NA*(04/12/18 code = U Benzodiaz Scr) 5:22 PM) [facility] [id number] 23:22:00 Test Item Value Reference Range Interpretation Comments U Amph Scr (test code Negative *NA*(04/12/18 = U Amph Scr) 5:22 PM) [facility] [id number] 23:22:00 Test Item Value Reference Range Interpretation Comments U Cocaine Scr (test Negative *NA*(04/12/18 code = U Cocaine Scr) 5:22 PM) [facility] [id number] 23:22:00 Test Item Value Reference Range Interpretation Comments U Opiate Scr (test Negative *NA*(04/12/18 code = U Opiate Scr) 5:22 PM) [facility] [id number] 23:22:00 Test Item Value Reference Range Interpretation Comments UDS Note (test code = See Note (04/12/18 5:22 UDS Note) PM) [facility] [id number] 23:22:00 Test Item Value Reference Range Interpretation Comments U Cannab Scr (test Negative *NA*(04/12/18 code = U Cannab Scr) 5:22 PM) [facility] [id number] 23:22:00 Test Item Value Reference Range Interpretation Comments U Phencyclidine Scr (test Negative code = U Phencyclidine *NA*(04/12/18 5:22 Scr) PM) [facility] [id number] 23:22:00 Test Item Value Reference Range Interpretation Comments U Odalys Scr (test code Negative *NA*(04/12/18 = U Odalys Scr) 5:22 PM) [facility] [id number] 23:22:00 Test Item Value Reference Range Interpretation Comments U Benzodiaz Scr (test Negative *NA*(04/12/18 code = U Benzodiaz Scr) 5:22 PM) [facility] [id number] 23:22:00 Test Item Value Reference Range Interpretation Comments U Amph Scr (test code Negative *NA*(04/12/18 = U Amph Scr) 5:22 PM) [facility] [id number] 23:22:00 Test Item Value Reference Range Interpretation Comments U Cocaine Scr (test Negative *NA*(04/12/18 code = U Cocaine Scr) 5:22 PM) [facility] [id number] 23:22:00 Test Item Value Reference Range Interpretation Comments U Opiate Scr (test Negative *NA*(04/12/18 code = U Opiate Scr) 5:22 PM) [facility] [id number] 23:22:00 Test Item Value Reference Range Interpretation Comments UDS Note (test code = See Note (04/12/18 5:22 UDS Note) PM) [facility] [id number] 23:22:00 Test Item Value Reference Range Interpretation Comments U Cannab Scr (test Negative *NA*(04/12/18 code = U Cannab Scr) 5:22 PM) [facility] [id number] 23:22:00 Test Item Value Reference Range Interpretation Comments U Phencyclidine Scr (test Negative code = U Phencyclidine *NA*(04/12/18 5:22 Scr) PM) [facility] [id number] 23:22:00 Test Item Value Reference Range Interpretation Comments U Odalys Scr (test code Negative *NA*(04/12/18 = U Odalys Scr) 5:22 PM) [facility] [id number] 23:22:00 Test Item Value Reference Range Interpretation Comments U Benzodiaz Scr (test Negative *NA*(04/12/18 code = U Benzodiaz Scr) 5:22 PM) [facility] [id number] 23:22:00 Test Item Value Reference Range Interpretation Comments U Amph Scr (test code Negative *NA*(04/12/18 = U Amph Scr) 5:22 PM) [facility] [id number] 23:22:00 Test Item Value Reference Range Interpretation Comments U Cocaine Scr (test Negative *NA*(04/12/18 code = U Cocaine Scr) 5:22 PM) [facility] [id number] 23:22:00 Test Item Value Reference Range Interpretation Comments U Opiate Scr (test Negative *NA*(04/12/18 code = U Opiate Scr) 5:22 PM) [facility] [id number] 23:22:00 Test Item Value Reference Range Interpretation Comments UDS Note (test code = See Note (04/12/18 5:22 UDS Note) PM) [facility] [id number] 23:22:00 Test Item Value Reference Range Interpretation Comments U Cannab Scr (test Negative *NA*(04/12/18 code = U Cannab Scr) 5:22 PM) [facility] [id number] 23:22:00 Test Item Value Reference Range Interpretation Comments U Phencyclidine Scr (test Negative code = U Phencyclidine *NA*(04/12/18 5:22 Scr) PM) [facility] [id number] 23:22:00 Test Item Value Reference Range Interpretation Comments U Odalys Scr (test code Negative *NA*(04/12/18 = U Odalys Scr) 5:22 PM) [facility] [id number] 23:22:00 Test Item Value Reference Range Interpretation Comments U Benzodiaz Scr (test Negative *NA*(04/12/18 code = U Benzodiaz Scr) 5:22 PM) [facility] [id number] 23:22:00 Test Item Value Reference Range Interpretation Comments U Amph Scr (test code Negative *NA*(04/12/18 = U Amph Scr) 5:22 PM) [facility] [id number] 23:22:00 Test Item Value Reference Range Interpretation Comments U Cocaine Scr (test Negative *NA*(04/12/18 code = U Cocaine Scr) 5:22 PM) [facility] [id number] 23:22:00 Test Item Value Reference Range Interpretation Comments U Opiate Scr (test Negative *NA*(04/12/18 code = U Opiate Scr) 5:22 PM) [facility] [id number] 23:22:00 Test Item Value Reference Range Interpretation Comments UDS Note (test code = See Note (04/12/18 5:22 UDS Note) PM) [facility] [id number] 23:22:00 Test Item Value Reference Range Interpretation Comments U Cannab Scr (test Negative *NA*(04/12/18 code = U Cannab Scr) 5:22 PM) [facility] [id number] 23:22:00 Test Item Value Reference Range Interpretation Comments U Phencyclidine Scr (test Negative code = U Phencyclidine *NA*(04/12/18 5:22 Scr) PM) [facility] [id number] 22:38:00 Test Item Value Reference Range Interpretation Comments Troponin-I (test code 0.02 See_Comment [Auto mated message] The = Troponin-I) system which g enerated this result transmit abdelrahman reference range : <=0.40. The reference r annemarie was not used to interpr et this result as gurpreet l/abnormal. [facility] [id number] 22:38:00 Test Item Value Reference Range Interpretation Comments Total CK (test code = Total CK) 50 12 [facility]2018-12-13 22:38:00 Test Item Value Reference Range Interpretation Comments eGFR (test code = eGFR) 120 [facility]2018-12-13 22:38:00 Test Item Value Reference Range Interpretation Comments AST (test code = AST) 17 See_Comment [Auto mated message] The system which ge nerated this result transmit abdelrahman reference range : <=37. The reference range was not used to interpr et this result as gurpreet l/abnormal. [facility]2018-12-13 22:38:00 Test Item Value Reference Range Interpretation Comments ALT (test code = ALT) 23 See_Comment [Auto mated message] The system which ge nerated this result transmit abdelrahman reference range : <=65. The reference range was not used to interpr et this result as gurpreet l/abnormal. [facility]2018-12-13 22:38:00 Test Item Value Reference Range Interpretation Comments Albumin Lvl (test code = Albumin Lvl) 4.0 3.5-5.0 [facility]2018-12-13 22:38:00 Test Item Value Reference Range Interpretation Comments Total Protein (test code = Total 7.4 6.4-8.4 Protein) [facility]2018-12-13 22:38:00 Test Item Value Reference Range Interpretation Comments Bili Total (test code = Bili Total) 0.3 0.2-1.3 [facility]2018-12-13 22:38:00 Test Item Value Reference Range Interpretation Comments Alk Phos (test code = Alk Phos) 35 39-136 [facility]2018-12-13 22:38:00 Test Item Value Reference Range Interpretation Comments Chloride Lvl (test code = Chloride Lvl) 103 95-109 [facility]2018-12-13 22:38:00 Test Item Value Reference Range Interpretation Comments Calcium Lvl (test code = Calcium Lvl) 9.4 8.5-10.5 [facility]2018-12-13 22:38:00 Test Item Value Reference Range Interpretation Comments CO2 (test code = CO2) 32 24-32 [facility]2018-12-13 22:38:00 Test Item Value Reference Range Interpretation Comments Potassium Lvl (test code = Potassium 4.2 3.5-5.1 Lvl) [facility]2018-12-13 22:38:00 Test Item Value Reference Range Interpretation Comments Sodium Lvl (test code = Sodium Lvl) 139 135-145 [facility]2018-12-13 22:38:00 Test Item Value Reference Range Interpretation Comments Creatinine Lvl (test code = Creatinine 0.80 0.50-1.40 Lvl) [facility]2018-12-13 22:38:00 Test Item Value Reference Range Interpretation Comments BUN (test code = BUN) 12 7-22 [facility]2018-12-13 22:38:00 Test Item Value Reference Range Interpretation Comments Glucose Lvl (test code = Glucose Lvl) 93 70-99 [facility]2018-12-13 22:38:00 Test Item Value Reference Range Interpretation Comments A/G Ratio (test code = A/G Ratio) 1.2 1 0.7-1.6 [facility]2018-12-13 22:38:00 Test Item Value Reference Range Interpretation Comments Globulin (test code = Globulin) 3.4 2.7-4.2 [facility]2018-12-13 22:38:00 Test Item Value Reference Range Interpretation Comments B/C Ratio (test code = B/C Ratio) 15 1 6-25 [facility]2018-12-13 22:38:00 Test Item Value Reference Range Interpretation Comments AGAP (test code = AGAP) 8.2 10.0-20.0 [id number] 22:38:00 Test Item Value Reference Range Interpretation Comments MCHC (test code = MCHC) 32.1 32.0-36.0 [facility] HospitalQwjvguvIWZNAJBJOE8325-16-80 22:38:00 Test Item Value Reference Range Interpretation Comments MCH (test code = MCH) 27.4 pg 27.0-31.0 [facility] HospitalNmvyakrAMHLKUHROQ4909-21-64 22:38:00 Test Item Value Reference Range Interpretation Comments Platelet (test code = Platelet) 200 133-450 [facility] HospitalRmraqreXOXKECUNTT9543-56-88 22:38:00 Test Item Value Reference Range Interpretation Comments RDW (test code = RDW) 14.4 11.5-14.5 [facility] HospitalQsarhkrFPNCVJSJPA1848-87-97 22:38:00 Test Item Value Reference Range Interpretation Comments MPV (test code = MPV) 9.1 7.4-10.4 [facility] HospitalTeexxedKRJOZUAXDX8907-65-84 22:38:00 Test Item Value Reference Range Interpretation Comments WBC (test code = WBC) 14.0 3.7-10.4 [facility] HospitalBrppzlcLLCSUNEKTB0271-87-44 22:38:00 Test Item Value Reference Range Interpretation Comments RBC (test code = RBC) 5.18 4.70-6.10 [facility] HospitalZlwxcskFRTIKSVZUF1765-98-54 22:38:00 Test Item Value Reference Range Interpretation Comments Hgb (test code = Hgb) 14.2 14.0-18.0 [facility] HospitalQjtbafyTKIBIPZKTF9764-25-82 22:38:00 Test Item Value Reference Range Interpretation Comments Hct (test code = Hct) 44.2 42.0-54.0 [facility] HospitalIeuktcsMLCYYUSVHC0832-51-31 22:38:00 Test Item Value Reference Range Interpretation Comments MCV (test code = MCV) 85.3 80.0-94.0 [facility] HospitalRwqsqdeKJVHTPBELQ6355-02-31 22:38:00 Test Item Value Reference Range Interpretation Comments Basophils (test code = 0.2 See_Comment [Aut omated message] The Basophils) system which ge nerated this result tra nsmitted reference range : <=1.0. The reference r annemarie was not used to int erpret this result as normal/abnormal . [facility] HospitalZjvwvdiDQKHEFGHJY2304-56-72 22:38:00 Test Item Value Reference Range Interpretation Comments Eosinophils (test code = 0.1 See_Comment [A utomated message] The Eosinophils) system which ge nerated this result tra nsmitted reference range : <=4.0. The reference r annemarie was not used to int erpret this result as normal/abnormal . [facility] HospitalFuayhbgTOVQMGTXPG5862-24-52 22:38:00 Test Item Value Reference Range Interpretation Comments Monocytes (test code = Monocytes) 2.7 2.0-12.0 [facility] HospitalMxqgdafAMURJZLZHP6474-21-63 22:38:00 Test Item Value Reference Range Interpretation Comments Monocytes # (test code 0.4 See_Comment [Aut omated message] The = Monocytes #) system which generated this result tra nsmitted reference range : <=0.8. The reference r annemarie was not used to int erpret this result as normal/abnormal . [facility] HospitalHeibgrbQHPMCPMKNA4374-85-99 22:38:00 Test Item Value Reference Range Interpretation Comments Lymphocytes # (test code = Lymphocytes 0.6 1.0-5.5 #) [facility] HospitalUqrxcedGICQWZXIBL5942-46-58 22:38:00 Test Item Value Reference Range Interpretation Comments Neutrophils # (test code = Neutrophils 13.0 1.5-8.1 #) [facility] HospitalFahgvprDTZUFUINKK7357-49-28 22:38:00 Test Item Value Reference Range Interpretation Comments Lymphocytes (test code = Lymphocytes) 4.1 20.0-40.0 [facility] HospitalGezspbbJVVXZAIQAK2926-99-60 22:38:00 Test Item Value Reference Range Interpretation Comments Eosinophils # (test code 0.0 See_Comment [A utomated message] The = Eosinophils #) system whic h generated this result tra nsmitted reference range : <=0.5. The reference r annemarie was not used to int erpret this result as normal/abnormal . [facility] HospitalUadmfmzXNVYTBLRVJ6620-76-29 22:38:00 Test Item Value Reference Range Interpretation Comments Basophils # (test code 0.0 See_Comment [Aut omated message] The = Basophils #) system which generated this result tra nsmitted reference range : <=0.2. The reference r annemarie was not used to int erpret this result as normal/abnormal . [facility] HospitalDmcnvfsNNALZGAPMB2825-99-77 22:38:00 Test Item Value Reference Range Interpretation Comments RBC Morph (test code = Normal (04/12/18 4:38 RBC Morph) PM) [facility] HospitalWcnalxaVTEODOAVWL4964-18-02 22:38:00 Test Item Value Reference Range Interpretation Comments Plt Morph (test code = Normal (04/12/18 4:38 Plt Morph) PM) [facility] HospitalZpuyqxqKRXMAZOATM9863-62-57 22:38:00 Test Item Value Reference Range Interpretation Comments Segs (test code = Segs) 92.9 45.0-75.0 [facility] HospitalMotosluTFKLVLAWPO4687-09-62 22:38:00 Test Item Value Reference Range Interpretation Comments Large Plt (test code Moderate *ABN*(04/12/18 = Large Plt) 4:38 PM) [facility]2018-12-13 22:38:00 Test Item Value Reference Range Interpretation Comments Troponin-I (test code 0.02 See_Comment [Auto mated message] The = Troponin-I) system which g enerated this result transmit abdelrahman reference range : <=0.40. The reference r annemarie was not used to interpr et this result as gurpreet l/abnormal. [facility] AustinIMshoppingCARDIAC VWDMCZM4716-86-91 22:38:00 Test Item Value Reference Range Interpretation Comments Total CK (test code = Total CK) 50 12-191 [facility] ICMIU1709-20-26 22:38:00 Test Item Value Reference Range Interpretation Comments eGFR (test code = eGFR) 120 [facility] [id number] 22:38:00 Test Item Value Reference Range Interpretation Comments AST (test code = AST) 17 See_Comment [Auto mated message] The system which ge nerated this result transmit abdelrahman reference range : <=37. The reference range was not used to interpr et this result as gurpreet l/abnormal. [facility] [employer] [id number] 22:38:00 Test Item Value Reference Range Interpretation Comments ALT (test code = ALT) 23 See_Comment [Auto mated message] The system which ge nerated this result transmit abdelrahman reference range : <=65. The reference range was not used to interpr et this result as gurpreet l/abnormal. [facility] FJIGT1947-22-27 22:38:00 Test Item Value Reference Range Interpretation Comments Albumin Lvl (test code = Albumin Lvl) 4.0 3.5-5.0 [facility] [employer] [id number] 22:38:00 Test Item Value Reference Range Interpretation Comments Total Protein (test code = Total 7.4 6.4-8.4 Protein) [facility] AustinSeeSaw NetworksVWHRG4818-76-63 22:38:00 Test Item Value Reference Range Interpretation Comments Bili Total (test code = Bili Total) 0.3 0.2-1.3 [facility] KHQGZ5223-34-76 22:38:00 Test Item Value Reference Range Interpretation Comments Alk Phos (test code = Alk Phos) 35 39-136 [facility] [id number] 22:38:00 Test Item Value Reference Range Interpretation Comments Chloride Lvl (test code = Chloride Lvl) 103 95-109 [facility]2018-12-13 22:38:00 Test Item Value Reference Range Interpretation Comments Calcium Lvl (test code = Calcium Lvl) 9.4 8.5-10.5 [facility]2018-12-13 22:38:00 Test Item Value Reference Range Interpretation Comments CO2 (test code = CO2) 32 24-32 [facility]2018-12-13 22:38:00 Test Item Value Reference Range Interpretation Comments Potassium Lvl (test code = Potassium 4.2 3.5-5.1 Lvl) [facility]2018-12-13 22:38:00 Test Item Value Reference Range Interpretation Comments Sodium Lvl (test code = Sodium Lvl) 139 135-145 [facility]2018-12-13 22:38:00 Test Item Value Reference Range Interpretation Comments Creatinine Lvl (test code = Creatinine 0.80 0.50-1.40 Lvl) [facility]2018-12-13 22:38:00 Test Item Value Reference Range Interpretation Comments BUN (test code = BUN) 12 7-22 [facility]2018-12-13 22:38:00 Test Item Value Reference Range Interpretation Comments Glucose Lvl (test code = Glucose Lvl) 93 70-99 [facility]2018-12-13 22:38:00 Test Item Value Reference Range Interpretation Comments A/G Ratio (test code = A/G Ratio) 1.2 1 0.7-1.6 [facility]2018-12-13 22:38:00 Test Item Value Reference Range Interpretation Comments Globulin (test code = Globulin) 3.4 2.7-4.2 [facility]2018-12-13 22:38:00 Test Item Value Reference Range Interpretation Comments B/C Ratio (test code = B/C Ratio) 15 1 6-25 [facility]2018-12-13 22:38:00 Test Item Value Reference Range Interpretation Comments AGAP (test code = AGAP) 8.2 10.0-20.0 [facility] HospitalMzrmehvDFPJBECDXT7620-19-57 22:38:00 Test Item Value Reference Range Interpretation Comments MCHC (test code = MCHC) 32.1 32.0-36.0 [facility] HospitalNgyejaeBQLYCBQKSN2390-05-88 22:38:00 Test Item Value Reference Range Interpretation Comments MCH (test code = MCH) 27.4 pg 27.0-31.0 [facility] HospitalNqvusjyBULMJNWGEC1374-06-72 22:38:00 Test Item Value Reference Range Interpretation Comments Platelet (test code = Platelet) 200 133-450 [facility] HospitalKelzxljGSPKWXBJSO9137-79-46 22:38:00 Test Item Value Reference Range Interpretation Comments RDW (test code = RDW) 14.4 11.5-14.5 [facility] HospitalAactbzeZNKWQTNAVK5269-20-11 22:38:00 Test Item Value Reference Range Interpretation Comments MPV (test code = MPV) 9.1 7.4-10.4 [facility] HospitalXsoagroGTSQHDWJJO5294-66-40 22:38:00 Test Item Value Reference Range Interpretation Comments WBC (test code = WBC) 14.0 3.7-10.4 [facility] HospitalJhbmsmdFVUSSNQEQF8329-99-72 22:38:00 Test Item Value Reference Range Interpretation Comments RBC (test code = RBC) 5.18 4.70-6.10 [facility] HospitalPegylciAKFHWMIYOA9082-50-07 22:38:00 Test Item Value Reference Range Interpretation Comments Hgb (test code = Hgb) 14.2 14.0-18.0 [facility] HospitalDetcbncROSLWDVNFG1800-21-70 22:38:00 Test Item Value Reference Range Interpretation Comments Hct (test code = Hct) 44.2 42.0-54.0 [facility] HospitalWtxrnbdMKWYQUGWWB4182-02-52 22:38:00 Test Item Value Reference Range Interpretation Comments MCV (test code = MCV) 85.3 80.0-94.0 [facility] HospitalCiypokuSFUCCWCADV4449-62-34 22:38:00 Test Item Value Reference Range Interpretation Comments Basophils (test code = 0.2 See_Comment [Aut omated message] The Basophils) system which ge nerated this result tra nsmitted reference range : <=1.0. The reference r annemarie was not used to int erpret this result as normal/abnormal . [facility] HospitalMujbhlbTQOUXDPAAP8409-72-79 22:38:00 Test Item Value Reference Range Interpretation Comments Eosinophils (test code = 0.1 See_Comment [A utomated message] The Eosinophils) system which ge nerated this result tra nsmitted reference range : <=4.0. The reference r annemarie was not used to int erpret this result as normal/abnormal . [facility] HospitalBaxtwdsDFDNBLFRPJ0518-61-91 22:38:00 Test Item Value Reference Range Interpretation Comments Monocytes (test code = Monocytes) 2.7 2.0-12.0 [facility] HospitalRkexzweQVRRZGRNAM7368-21-23 22:38:00 Test Item Value Reference Range Interpretation Comments Monocytes # (test code 0.4 See_Comment [Aut omated message] The = Monocytes #) system which generated this result tra nsmitted reference range : <=0.8. The reference r annemarie was not used to int erpret this result as normal/abnormal . [facility] HospitalNyjthhlNGABXBKTJO5929-56-40 22:38:00 Test Item Value Reference Range Interpretation Comments Lymphocytes # (test code = Lymphocytes 0.6 1.0-5.5 #) [facility] HospitalTimrbjxIKTROZUDWB3175-15-57 22:38:00 Test Item Value Reference Range Interpretation Comments Neutrophils # (test code = Neutrophils 13.0 1.5-8.1 #) [facility] HospitalKwgxbllRKJMSGIYOR1323-70-44 22:38:00 Test Item Value Reference Range Interpretation Comments Lymphocytes (test code = Lymphocytes) 4.1 20.0-40.0 [facility] HospitalPsqgqkzNXFJDCAPZC4824-76-09 22:38:00 Test Item Value Reference Range Interpretation Comments Eosinophils # (test code 0.0 See_Comment [A utomated message] The = Eosinophils #) system whic h generated this result tra nsmitted reference range : <=0.5. The reference r annemarie was not used to int erpret this result as normal/abnormal . [facility] HospitalBvlrmbrQFYDUKDWAJ2925-76-29 22:38:00 Test Item Value Reference Range Interpretation Comments Basophils # (test code 0.0 See_Comment [Aut omated message] The = Basophils #) system which generated this result tra nsmitted reference range : <=0.2. The reference r annemarie was not used to int erpret this result as normal/abnormal . [facility] HospitalLwacakyXYJWSUBXHW4009-26-42 22:38:00 Test Item Value Reference Range Interpretation Comments RBC Morph (test code = Normal (04/12/18 4:38 RBC Morph) PM) [facility] HospitalNjwhlaxYREROHQASV0174-00-60 22:38:00 Test Item Value Reference Range Interpretation Comments Plt Morph (test code = Normal (04/12/18 4:38 Plt Morph) PM) [facility] AustinKlpvvpgWSWYSGCEBN7168-22-15 22:38:00 Test Item Value Reference Range Interpretation Comments Segs (test code = Segs) 92.9 45.0-75.0 [facility]viewEmsedfjYDKLNCHKAM2876-04-42 22:38:00 Test Item Value Reference Range Interpretation Comments Large Plt (test code Moderate *ABN*(04/12/18 = Large Plt) 4:38 PM) [facility] AustinIMshoppingCARMcor TechnologiesAC MPMZNSF3704-94-72 22:38:00 Test Item Value Reference Range Interpretation Comments Troponin-I (test code 0.02 See_Comment [Auto mated message] The = Troponin-I) system which g enerated this result transmit abdelrahman reference range : <=0.40. The reference r annemarie was not used to interpr et this result as gurpreet l/abnormal. [facility] AustinExperifun MLGRPUF5609-49-91 22:38:00 Test Item Value Reference Range Interpretation Comments Total CK (test code = Total CK) 50 12-191 [facility] [id number] 22:38:00 Test Item Value Reference Range Interpretation Comments eGFR (test code = eGFR) 120 [facility] [employer] IXGNQ2268-76-45 22:38:00 Test Item Value Reference Range Interpretation Comments AST (test code = AST) 17 See_Comment [Auto mated message] The system which ge nerated this result transmit abdelrahman reference range : <=37. The reference range was not used to interpr et this result as gurpreet l/abnormal. [facility] [employer] [id number] 22:38:00 Test Item Value Reference Range Interpretation Comments ALT (test code = ALT) 23 See_Comment [Auto mated message] The system which ge nerated this result transmit abdelrahman reference range : <=65. The reference range was not used to interpr et this result as gurpreet l/abnormal. [facility] [employer] [id number] 22:38:00 Test Item Value Reference Range Interpretation Comments Albumin Lvl (test code = Albumin Lvl) 4.0 3.5-5.0 [facility] [employer] [id number] 22:38:00 Test Item Value Reference Range Interpretation Comments Total Protein (test code = Total 7.4 6.4-8.4 Protein) [facility]EC[facility] HospitalTUGWZ3694-43-78 22:38:00 Test Item Value Reference Range Interpretation Comments Bili Total (test code = Bili Total) 0.3 0.2-1.3 [facility]2018-12-13 22:38:00 Test Item Value Reference Range Interpretation Comments Alk Phos (test code = Alk Phos) 35 39-136 [facility]2018-12-13 22:38:00 Test Item Value Reference Range Interpretation Comments Chloride Lvl (test code = Chloride Lvl) 103 95-109 [facility]2018-12-13 22:38:00 Test Item Value Reference Range Interpretation Comments Calcium Lvl (test code = Calcium Lvl) 9.4 8.5-10.5 [facility]2018-12-13 22:38:00 Test Item Value Reference Range Interpretation Comments CO2 (test code = CO2) 32 24-32 [facility]2018-12-13 22:38:00 Test Item Value Reference Range Interpretation Comments Potassium Lvl (test code = Potassium 4.2 3.5-5.1 Lvl) [facility]2018-12-13 22:38:00 Test Item Value Reference Range Interpretation Comments Sodium Lvl (test code = Sodium Lvl) 139 135-145 [facility]2018-12-13 22:38:00 Test Item Value Reference Range Interpretation Comments Creatinine Lvl (test code = Creatinine 0.80 0.50-1.40 Lvl) [facility]2018-12-13 22:38:00 Test Item Value Reference Range Interpretation Comments BUN (test code = BUN) 12 7-22 [facility]2018-12-13 22:38:00 Test Item Value Reference Range Interpretation Comments Glucose Lvl (test code = Glucose Lvl) 93 70-99 [facility]2018-12-13 22:38:00 Test Item Value Reference Range Interpretation Comments A/G Ratio (test code = A/G Ratio) 1.2 1 0.7-1.6 [facility]2018-12-13 22:38:00 Test Item Value Reference Range Interpretation Comments Globulin (test code = Globulin) 3.4 2.7-4.2 [facility]2018-12-13 22:38:00 Test Item Value Reference Range Interpretation Comments B/C Ratio (test code = B/C Ratio) 15 1 6-25 [facility]2018-12-13 22:38:00 Test Item Value Reference Range Interpretation Comments AGAP (test code = AGAP) 8.2 10.0-20.0 [facility] HospitalDjquihfELGGOJMLAK8261-15-94 22:38:00 Test Item Value Reference Range Interpretation Comments MCHC (test code = MCHC) 32.1 32.0-36.0 [facility] HospitalWaftlmcMDRCAEWJLI6882-72-64 22:38:00 Test Item Value Reference Range Interpretation Comments MCH (test code = MCH) 27.4 pg 27.0-31.0 [facility] HospitalWfzvqvtVRKACUHNOA1232-19-03 22:38:00 Test Item Value Reference Range Interpretation Comments Platelet (test code = Platelet) 200 133-450 [facility] HospitalKbvmblwTUJEVQQRGL9488-18-27 22:38:00 Test Item Value Reference Range Interpretation Comments RDW (test code = RDW) 14.4 11.5-14.5 [facility] HospitalFrefmomOYFHGXUVXF3003-93-96 22:38:00 Test Item Value Reference Range Interpretation Comments MPV (test code = MPV) 9.1 7.4-10.4 [facility] HospitalQotrbcrROLRBPZWII0683-14-95 22:38:00 Test Item Value Reference Range Interpretation Comments WBC (test code = WBC) 14.0 3.7-10.4 [facility] HospitalYyuloxsVTNUEWRYOH7272-95-88 22:38:00 Test Item Value Reference Range Interpretation Comments RBC (test code = RBC) 5.18 4.70-6.10 [facility] HospitalStpxruvDJGGKCMKQA6989-31-24 22:38:00 Test Item Value Reference Range Interpretation Comments Hgb (test code = Hgb) 14.2 14.0-18.0 [facility] HospitalEmcbelqLGLJUJEEUS1985-21-22 22:38:00 Test Item Value Reference Range Interpretation Comments Hct (test code = Hct) 44.2 42.0-54.0 [facility] HospitalMxkpugwBRWZCDHMAZ5854-72-41 22:38:00 Test Item Value Reference Range Interpretation Comments MCV (test code = MCV) 85.3 80.0-94.0 [facility] HospitalXimulibXGKPHNERGO9911-78-79 22:38:00 Test Item Value Reference Range Interpretation Comments Basophils (test code = 0.2 See_Comment [Aut omated message] The Basophils) system which ge nerated this result tra nsmitted reference range : <=1.0. The reference r annemarie was not used to int erpret this result as normal/abnormal . [facility] HospitalTmjxxfsAHZRTTFAIY1917-28-27 22:38:00 Test Item Value Reference Range Interpretation Comments Eosinophils (test code = 0.1 See_Comment [A utomated message] The Eosinophils) system which ge nerated this result tra nsmitted reference range : <=4.0. The reference r annemarie was not used to int erpret this result as normal/abnormal . [facility] HospitalNfkznwmPCIOITZQXY7976-00-35 22:38:00 Test Item Value Reference Range Interpretation Comments Monocytes (test code = Monocytes) 2.7 2.0-12.0 [facility] HospitalPtuvzwrMVEAZOKRXD8839-40-81 22:38:00 Test Item Value Reference Range Interpretation Comments Monocytes # (test code 0.4 See_Comment [Aut omated message] The = Monocytes #) system which generated this result tra nsmitted reference range : <=0.8. The reference r annemarie was not used to int erpret this result as normal/abnormal . [facility] HospitalJeemhquMDOXBOTANY1566-68-03 22:38:00 Test Item Value Reference Range Interpretation Comments Lymphocytes # (test code = Lymphocytes 0.6 1.0-5.5 #) [facility] HospitalPduqbebXAMVRBHNGA0808-75-02 22:38:00 Test Item Value Reference Range Interpretation Comments Neutrophils # (test code = Neutrophils 13.0 1.5-8.1 #) [facility] HospitalXtwjwsvBIMPVBXHGF0749-39-97 22:38:00 Test Item Value Reference Range Interpretation Comments Lymphocytes (test code = Lymphocytes) 4.1 20.0-40.0 [facility] HospitalUpnxvypTTALEAOCSJ1485-00-78 22:38:00 Test Item Value Reference Range Interpretation Comments Eosinophils # (test code 0.0 See_Comment [A utomated message] The = Eosinophils #) system wh h generated this result tra nsmitted reference range : <=0.5. The reference r annemarie was not used to int erpret this result as normal/abnormal . [facility] HospitalUphqhnnSPZJMMZFBU0306-87-30 22:38:00 Test Item Value Reference Range Interpretation Comments Basophils # (test code 0.0 See_Comment [Aut omated message] The = Basophils #) system which generated this result tra nsmitted reference range : <=0.2. The reference r annemarie was not used to int erpret this result as normal/abnormal . [facility] AustinYcwkbpsHQUUBHDYMQ7083-46-86 22:38:00 Test Item Value Reference Range Interpretation Comments RBC Morph (test code = Normal (04/12/18 4:38 RBC Morph) PM) [facility] HospitalUkfzsjhAXRZGZMBFK3764-78-99 22:38:00 Test Item Value Reference Range Interpretation Comments Plt Morph (test code = Normal (04/12/18 4:38 Plt Morph) PM) [facility]WynxfvbNSGILHBGRZ2999-07-77 22:38:00 Test Item Value Reference Range Interpretation Comments Segs (test code = Segs) 92.9 45.0-75.0 [facility] HospitalBwpqwohVQCLSHASCB4606-49-76 22:38:00 Test Item Value Reference Range Interpretation Comments Large Plt (test code Moderate *ABN*(04/12/18 = Large Plt) 4:38 PM) [facility] LongviewPopularMedia ATCACOX5564-27-25 22:38:00 Test Item Value Reference Range Interpretation Comments Troponin-I (test code 0.02 See_Comment [Auto mated message] The = Troponin-I) system which g enerated this result transmit abdelrahman reference range : <=0.40. The reference r annemarie was not used to interpr et this result as gurpreet l/abnormal. [facility]view[facility] AOOEYYG4511-88-82 22:38:00 Test Item Value Reference Range Interpretation Comments Total CK (test code = Total CK) 50 12-191 [facility] [employer]2018-12-13 22:38:00 Test Item Value Reference Range Interpretation Comments eGFR (test code = eGFR) 120 [facility] [employer]2018-12-13 22:38:00 Test Item Value Reference Range Interpretation Comments AST (test code = AST) 17 See_Comment [Auto mated message] The system which ge nerated this result transmit abdelrahman reference range : <=37. The reference range was not used to interpr et this result as gurpreet l/abnormal. [facility]2018-12-13 22:38:00 Test Item Value Reference Range Interpretation Comments ALT (test code = ALT) 23 See_Comment [Auto mated message] The system which ge nerated this result transmit abdelrahman reference range : <=65. The reference range was not used to interpr et this result as gurpreet l/abnormal. [facility]2018-12-13 22:38:00 Test Item Value Reference Range Interpretation Comments Albumin Lvl (test code = Albumin Lvl) 4.0 3.5-5.0 [facility]2018-12-13 22:38:00 Test Item Value Reference Range Interpretation Comments Total Protein (test code = Total 7.4 6.4-8.4 Protein) [facility]2018-12-13 22:38:00 Test Item Value Reference Range Interpretation Comments Bili Total (test code = Bili Total) 0.3 0.2-1.3 [facility]2018-12-13 22:38:00 Test Item Value Reference Range Interpretation Comments Alk Phos (test code = Alk Phos) 35 39-136 [facility]2018-12-13 22:38:00 Test Item Value Reference Range Interpretation Comments Chloride Lvl (test code = Chloride Lvl) 103 95-109 [facility]2018-12-13 22:38:00 Test Item Value Reference Range Interpretation Comments Calcium Lvl (test code = Calcium Lvl) 9.4 8.5-10.5 [facility]2018-12-13 22:38:00 Test Item Value Reference Range Interpretation Comments CO2 (test code = CO2) 32 24-32 [facility]2018-12-13 22:38:00 Test Item Value Reference Range Interpretation Comments Potassium Lvl (test code = Potassium 4.2 3.5-5.1 Lvl) [facility]2018-12-13 22:38:00 Test Item Value Reference Range Interpretation Comments Sodium Lvl (test code = Sodium Lvl) 139 135-145 [facility]2018-12-13 22:38:00 Test Item Value Reference Range Interpretation Comments Creatinine Lvl (test code = Creatinine 0.80 0.50-1.40 Lvl) [facility]2018-12-13 22:38:00 Test Item Value Reference Range Interpretation Comments BUN (test code = BUN) 12 7-22 [facility]2018-12-13 22:38:00 Test Item Value Reference Range Interpretation Comments Glucose Lvl (test code = Glucose Lvl) 93 70-99 [facility]2018-12-13 22:38:00 Test Item Value Reference Range Interpretation Comments A/G Ratio (test code = A/G Ratio) 1.2 1 0.7-1.6 [facility]2018-12-13 22:38:00 Test Item Value Reference Range Interpretation Comments Globulin (test code = Globulin) 3.4 2.7-4.2 [facility]2018-12-13 22:38:00 Test Item Value Reference Range Interpretation Comments B/C Ratio (test code = B/C Ratio) 15 1 6-25 [facility]2018-12-13 22:38:00 Test Item Value Reference Range Interpretation Comments AGAP (test code = AGAP) 8.2 10.0-20.0 [facility] HospitalKxnacwaPVHNOBCEGJ0501-02-51 22:38:00 Test Item Value Reference Range Interpretation Comments MCHC (test code = MCHC) 32.1 32.0-36.0 [facility] HospitalQtewaygTWDMIZGJOM4265-73-21 22:38:00 Test Item Value Reference Range Interpretation Comments MCH (test code = MCH) 27.4 pg 27.0-31.0 [facility] HospitalOdtbipgRFRGCUBBMU9800-55-86 22:38:00 Test Item Value Reference Range Interpretation Comments Platelet (test code = Platelet) 200 133-450 [facility] HospitalKrsxpcnUWKUBKHZVS9267-81-03 22:38:00 Test Item Value Reference Range Interpretation Comments RDW (test code = RDW) 14.4 11.5-14.5 [facility] HospitalTqltzahIMCNMYRHGR2665-29-51 22:38:00 Test Item Value Reference Range Interpretation Comments MPV (test code = MPV) 9.1 7.4-10.4 [facility] HospitalWnynbzuGIGWFQSVJM1717-88-68 22:38:00 Test Item Value Reference Range Interpretation Comments WBC (test code = WBC) 14.0 3.7-10.4 [facility] HospitalJnslfjrGLRGHWGFRZ8172-50-41 22:38:00 Test Item Value Reference Range Interpretation Comments RBC (test code = RBC) 5.18 4.70-6.10 [facility] HospitalWsttidmACTIYKXKXX8861-00-81 22:38:00 Test Item Value Reference Range Interpretation Comments Hgb (test code = Hgb) 14.2 14.0-18.0 [place] 356078-12-13 22:38:00 Test Item Value Reference Range Interpretation Comments Hct (test code = Hct) 44.2 42.0-54.0 [facility] HospitalVeftvraOHKHFOKWIK4319-78-63 22:38:00 Test Item Value Reference Range Interpretation Comments MCV (test code = MCV) 85.3 80.0-94.0 [facility] HospitalIlsifntCRKCGMULNF3698-44-68 22:38:00 Test Item Value Reference Range Interpretation Comments Basophils (test code = 0.2 See_Comment [Aut omated message] The Basophils) system which ge nerated this result tra nsmitted reference range : <=1.0. The reference r annemarie was not used to int erpret this result as normal/abnormal . [facility] HospitalLpmrqobPFDEGICRMO7136-91-94 22:38:00 Test Item Value Reference Range Interpretation Comments Eosinophils (test code = 0.1 See_Comment [A utomated message] The Eosinophils) system which ge nerated this result tra nsmitted reference range : <=4.0. The reference r annemarie was not used to int erpret this result as normal/abnormal . [facility] HospitalKhrnkbcDWSJPIGNMB8073-44-21 22:38:00 Test Item Value Reference Range Interpretation Comments Monocytes (test code = Monocytes) 2.7 2.0-12.0 [facility] HospitalIdxsjsaHDVDHYJNEQ6790-94-98 22:38:00 Test Item Value Reference Range Interpretation Comments Monocytes # (test code 0.4 See_Comment [Aut omated message] The = Monocytes #) system which generated this result tra nsmitted reference range : <=0.8. The reference r annemarie was not used to int erpret this result as normal/abnormal . [facility] HospitalZvadswvYUOYYZEEEJ7123-97-08 22:38:00 Test Item Value Reference Range Interpretation Comments Lymphocytes # (test code = Lymphocytes 0.6 1.0-5.5 #) [facility] HospitalMfulqxaPKCXSNSHIH7341-33-38 22:38:00 Test Item Value Reference Range Interpretation Comments Neutrophils # (test code = Neutrophils 13.0 1.5-8.1 #) [facility] HospitalOkofslhVPDXPILQGB3769-67-92 22:38:00 Test Item Value Reference Range Interpretation Comments Lymphocytes (test code = Lymphocytes) 4.1 20.0-40.0 [facility] HospitalHutezguAIGZKAEYHQ0260-84-18 22:38:00 Test Item Value Reference Range Interpretation Comments Eosinophils # (test code 0.0 See_Comment [A utomated message] The = Eosinophils #) system whic h generated this result tra nsmitted reference range : <=0.5. The reference r annemarie was not used to int erpret this result as normal/abnormal . [facility]XajebioADIZGLUNGH8081-79-45 22:38:00 Test Item Value Reference Range Interpretation Comments Basophils # (test code 0.0 See_Comment [Aut omated message] The = Basophils #) system which generated this result tra nsmitted reference range : <=0.2. The reference r annemarie was not used to int erpret this result as normal/abnormal . [facility] AustinQordsqyMLAMWNASGB5476-06-37 22:38:00 Test Item Value Reference Range Interpretation Comments RBC Morph (test code = Normal (04/12/18 4:38 RBC Morph) PM) [facility]NjjcspkOMHZELEDCX7551-33-62 22:38:00 Test Item Value Reference Range Interpretation Comments Plt Morph (test code = Normal (04/12/18 4:38 Plt Morph) PM) [facility] AustinAgynifuZSBVDVSXPY6792-30-84 22:38:00 Test Item Value Reference Range Interpretation Comments Segs (test code = Segs) 92.9 45.0-75.0 [facility] AustinJvuwjlhXHNIPUITZZ1507-06-31 22:38:00 Test Item Value Reference Range Interpretation Comments Large Plt (test code Moderate *ABN*(04/12/18 = Large Plt) 4:38 PM) [facility] NAWNVUP7899-18-11 22:38:00 Test Item Value Reference Range Interpretation Comments Troponin-I (test code 0.02 See_Comment [Auto mated message] The = Troponin-I) system which g enerated this result transmit abdelrahman reference range : <=0.40. The reference r annemarie was not used to interpr et this result as gurpreet l/abnormal. [facility] ZGOBJDP1432-93-28 22:38:00 Test Item Value Reference Range Interpretation Comments Total CK (test code = Total CK) 50 12-191 [facility] [employer] GKVXW5671-54-09 22:38:00 Test Item Value Reference Range Interpretation Comments eGFR (test code = eGFR) 120 [facility] [employer] RSBMF1025-75-11 22:38:00 Test Item Value Reference Range Interpretation Comments AST (test code = AST) 17 See_Comment [Auto mated message] The system which ge nerated this result transmit abdelrahman reference range : <=37. The reference range was not used to interpr et this result as gurpreet l/abnormal. [facility]2018-12-13 22:38:00 Test Item Value Reference Range Interpretation Comments ALT (test code = ALT) 23 See_Comment [Auto mated message] The system which ge nerated this result transmit abdelrahman reference range : <=65. The reference range was not used to interpr et this result as gurpreet l/abnormal. [facility]2018-12-13 22:38:00 Test Item Value Reference Range Interpretation Comments Albumin Lvl (test code = Albumin Lvl) 4.0 3.5-5.0 [facility]2018-12-13 22:38:00 Test Item Value Reference Range Interpretation Comments Total Protein (test code = Total 7.4 6.4-8.4 Protein) [facility]2018-12-13 22:38:00 Test Item Value Reference Range Interpretation Comments Bili Total (test code = Bili Total) 0.3 0.2-1.3 [facility]2018-12-13 22:38:00 Test Item Value Reference Range Interpretation Comments Alk Phos (test code = Alk Phos) 35 39-136 [facility]2018-12-13 22:38:00 Test Item Value Reference Range Interpretation Comments Chloride Lvl (test code = Chloride Lvl) 103 95-109 [facility]2018-12-13 22:38:00 Test Item Value Reference Range Interpretation Comments Calcium Lvl (test code = Calcium Lvl) 9.4 8.5-10.5 [facility]2018-12-13 22:38:00 Test Item Value Reference Range Interpretation Comments CO2 (test code = CO2) 32 24-32 [facility]2018-12-13 22:38:00 Test Item Value Reference Range Interpretation Comments Potassium Lvl (test code = Potassium 4.2 3.5-5.1 Lvl) [facility]2018-12-13 22:38:00 Test Item Value Reference Range Interpretation Comments Sodium Lvl (test code = Sodium Lvl) 139 135-145 [place] 401758-12-13 22:38:00 Test Item Value Reference Range Interpretation Comments Creatinine Lvl (test code = Creatinine 0.80 0.50-1.40 Lvl) [facility]2018-12-13 22:38:00 Test Item Value Reference Range Interpretation Comments BUN (test code = BUN) 12 7-22 [facility]2018-12-13 22:38:00 Test Item Value Reference Range Interpretation Comments Glucose Lvl (test code = Glucose Lvl) 93 70-99 [facility]2018-12-13 22:38:00 Test Item Value Reference Range Interpretation Comments A/G Ratio (test code = A/G Ratio) 1.2 1 0.7-1.6 [facility]2018-12-13 22:38:00 Test Item Value Reference Range Interpretation Comments Globulin (test code = Globulin) 3.4 2.7-4.2 [facility]2018-12-13 22:38:00 Test Item Value Reference Range Interpretation Comments B/C Ratio (test code = B/C Ratio) 15 1 6-25 [facility]2018-12-13 22:38:00 Test Item Value Reference Range Interpretation Comments AGAP (test code = AGAP) 8.2 10.0-20.0 [facility] HospitalTaehvhgJGSVGIOYUA8103-01-08 22:38:00 Test Item Value Reference Range Interpretation Comments MCHC (test code = MCHC) 32.1 32.0-36.0 [facility] HospitalVkswgekFFDDQNTYXM6631-64-23 22:38:00 Test Item Value Reference Range Interpretation Comments MCH (test code = MCH) 27.4 pg 27.0-31.0 [facility] HospitalFfwumdoVTAYUKQVVK8297-61-30 22:38:00 Test Item Value Reference Range Interpretation Comments Platelet (test code = Platelet) 200 133-450 [facility] HospitalOmizwffFLUQBNULBA6166-61-61 22:38:00 Test Item Value Reference Range Interpretation Comments RDW (test code = RDW) 14.4 11.5-14.5 [facility] HospitalOaxmjowRLZINNORMM6088-06-83 22:38:00 Test Item Value Reference Range Interpretation Comments MPV (test code = MPV) 9.1 7.4-10.4 [facility] HospitalTmnfcsjGVDLKFONOV5525-51-97 22:38:00 Test Item Value Reference Range Interpretation Comments WBC (test code = WBC) 14.0 3.7-10.4 [facility] HospitalYdwnlyxTTKETYVOSX2564-41-52 22:38:00 Test Item Value Reference Range Interpretation Comments RBC (test code = RBC) 5.18 4.70-6.10 [facility] HospitalHhcwmdxFNLNGQGMPE6720-49-94 22:38:00 Test Item Value Reference Range Interpretation Comments Hgb (test code = Hgb) 14.2 14.0-18.0 [facility] HospitalMbcfqlhRSDCKSYZDS0805-30-44 22:38:00 Test Item Value Reference Range Interpretation Comments Hct (test code = Hct) 44.2 42.0-54.0 [facility] HospitalAnhmungOYEDPONEDF4404-01-60 22:38:00 Test Item Value Reference Range Interpretation Comments MCV (test code = MCV) 85.3 80.0-94.0 [facility] HospitalJdtgtymNNTHDATCZT0880-04-51 22:38:00 Test Item Value Reference Range Interpretation Comments Basophils (test code = 0.2 See_Comment [Aut omated message] The Basophils) system which ge nerated this result tra nsmitted reference range : <=1.0. The reference r annemarie was not used to int erpret this result as normal/abnormal . [facility] HospitalXvbrzrnCVHCXFPMHH2258-16-22 22:38:00 Test Item Value Reference Range Interpretation Comments Eosinophils (test code = 0.1 See_Comment [A utomated message] The Eosinophils) system which ge nerated this result tra nsmitted reference range : <=4.0. The reference r annemarie was not used to int erpret this result as normal/abnormal . [facility] HospitalRsgetcoEUNOFVMPKD7352-32-08 22:38:00 Test Item Value Reference Range Interpretation Comments Monocytes (test code = Monocytes) 2.7 2.0-12.0 [facility] HospitalTcmbbevZBIVRCPYFI9262-18-83 22:38:00 Test Item Value Reference Range Interpretation Comments Monocytes # (test code 0.4 See_Comment [Aut omated message] The = Monocytes #) system which generated this result tra nsmitted reference range : <=0.8. The reference r annemarie was not used to int erpret this result as normal/abnormal . [facility] HospitalPgabqubZIURJXPTDP1975-36-98 22:38:00 Test Item Value Reference Range Interpretation Comments Lymphocytes # (test code = Lymphocytes 0.6 1.0-5.5 #) [facility] HospitalAbupovvGZYXTBMWJT6662-10-11 22:38:00 Test Item Value Reference Range Interpretation Comments Neutrophils # (test code = Neutrophils 13.0 1.5-8.1 #) [facility] HospitalXgffjboGEPHRLNZRS5405-80-21 22:38:00 Test Item Value Reference Range Interpretation Comments Lymphocytes (test code = Lymphocytes) 4.1 20.0-40.0 [facility] HospitalAmmqabpHYYQCBQTEM2351-03-16 22:38:00 Test Item Value Reference Range Interpretation Comments Eosinophils # (test code 0.0 See_Comment [A utomated message] The = Eosinophils #) system whic h generated this result tra nsmitted reference range : <=0.5. The reference r annemarie was not used to int erpret this result as normal/abnormal . [facility] HospitalXtewttlVHRGFCPRXK0451-77-11 22:38:00 Test Item Value Reference Range Interpretation Comments Basophils # (test code 0.0 See_Comment [Aut omated message] The = Basophils #) system which generated this result tra nsmitted reference range : <=0.2. The reference r annemarie was not used to int erpret this result as normal/abnormal . [facility] HospitalDbancteBJZGPGZART0351-71-24 22:38:00 Test Item Value Reference Range Interpretation Comments RBC Morph (test code = Normal (04/12/18 4:38 RBC Morph) PM) [facility] HospitalDulnwiqDDSOPTCTTG8864-55-36 22:38:00 Test Item Value Reference Range Interpretation Comments Plt Morph (test code = Normal (04/12/18 4:38 Plt Morph) PM) [facility] HospitalPfdzqgnSNXOEUYQPH1400-95-50 22:38:00 Test Item Value Reference Range Interpretation Comments Segs (test code = Segs) 92.9 45.0-75.0 [facility] HospitalYbpzvvcHTSHSONFYD2741-55-93 22:38:00 Test Item Value Reference Range Interpretation Comments Large Plt (test code Moderate *ABN*(04/12/18 = Large Plt) 4:38 PM) [facility] ALPENAGJLYHAV8034-15-03 22:38:00 Test Item Value Reference Range Interpretation Comments Troponin-I (test code 0.02 See_Comment [Auto mated message] The = Troponin-I) system which g enerated this result transmit abdelrahman reference range : <=0.40. The reference r annemarie was not used to interpr et this result as gurpreet l/abnormal. [facility] DHDKVCU1326-12-79 22:38:00 Test Item Value Reference Range Interpretation Comments Total CK (test code = Total CK) 50 12-191 [facility]2018-12-13 22:38:00 Test Item Value Reference Range Interpretation Comments eGFR (test code = eGFR) 120 [facility]2018-12-13 22:38:00 Test Item Value Reference Range Interpretation Comments AST (test code = AST) 17 See_Comment [Auto mated message] The system which ge nerated this result transmit abdelrahman reference range : <=37. The reference range was not used to interpr et this result as gurpreet l/abnormal. [facility]2018-12-13 22:38:00 Test Item Value Reference Range Interpretation Comments ALT (test code = ALT) 23 See_Comment [Auto mated message] The system which ge nerated this result transmit abdelrahman reference range : <=65. The reference range was not used to interpr et this result as gurpreet l/abnormal. [facility]2018-12-13 22:38:00 Test Item Value Reference Range Interpretation Comments Albumin Lvl (test code = Albumin Lvl) 4.0 3.5-5.0 [facility]2018-12-13 22:38:00 Test Item Value Reference Range Interpretation Comments Total Protein (test code = Total 7.4 6.4-8.4 Protein) [facility]2018-12-13 22:38:00 Test Item Value Reference Range Interpretation Comments Bili Total (test code = Bili Total) 0.3 0.2-1.3 [facility]2018-12-13 22:38:00 Test Item Value Reference Range Interpretation Comments Alk Phos (test code = Alk Phos) 35 39-136 [facility]2018-12-13 22:38:00 Test Item Value Reference Range Interpretation Comments Chloride Lvl (test code = Chloride Lvl) 103 95-109 [facility]2018-12-13 22:38:00 Test Item Value Reference Range Interpretation Comments Calcium Lvl (test code = Calcium Lvl) 9.4 8.5-10.5 [facility]2018-12-13 22:38:00 Test Item Value Reference Range Interpretation Comments CO2 (test code = CO2) 32 24-32 [facility]2018-12-13 22:38:00 Test Item Value Reference Range Interpretation Comments Potassium Lvl (test code = Potassium 4.2 3.5-5.1 Lvl) [facility]2018-12-13 22:38:00 Test Item Value Reference Range Interpretation Comments Sodium Lvl (test code = Sodium Lvl) 139 135-145 [facility]2018-12-13 22:38:00 Test Item Value Reference Range Interpretation Comments Creatinine Lvl (test code = Creatinine 0.80 0.50-1.40 Lvl) [facility]2018-12-13 22:38:00 Test Item Value Reference Range Interpretation Comments BUN (test code = BUN) 12 7-22 [facility]2018-12-13 22:38:00 Test Item Value Reference Range Interpretation Comments Glucose Lvl (test code = Glucose Lvl) 93 70-99 [facility]2018-12-13 22:38:00 Test Item Value Reference Range Interpretation Comments A/G Ratio (test code = A/G Ratio) 1.2 1 0.7-1.6 [facility]2018-12-13 22:38:00 Test Item Value Reference Range Interpretation Comments Globulin (test code = Globulin) 3.4 2.7-4.2 [facility]2018-12-13 22:38:00 Test Item Value Reference Range Interpretation Comments B/C Ratio (test code = B/C Ratio) 15 1 6-25 [facility]2018-12-13 22:38:00 Test Item Value Reference Range Interpretation Comments AGAP (test code = AGAP) 8.2 10.0-20.0 [facility] HospitalMafnyyyNLPCPZKKRX9555-83-56 22:38:00 Test Item Value Reference Range Interpretation Comments MCHC (test code = MCHC) 32.1 32.0-36.0 [facility] HospitalXinopiyBFYSYGSKEK5076-42-89 22:38:00 Test Item Value Reference Range Interpretation Comments MCH (test code = MCH) 27.4 pg 27.0-31.0 [facility] HospitalGnkzlozIWBIPGBHWA0472-23-88 22:38:00 Test Item Value Reference Range Interpretation Comments Platelet (test code = Platelet) 200 133-450 [facility] HospitalEccbkuqFKCPMNWSNN2937-02-28 22:38:00 Test Item Value Reference Range Interpretation Comments RDW (test code = RDW) 14.4 11.5-14.5 [facility] HospitalQvqjcjqGECVMTFWAJ8275-70-93 22:38:00 Test Item Value Reference Range Interpretation Comments MPV (test code = MPV) 9.1 7.4-10.4 [facility] HospitalSlptfebQBCPYVDGPE6022-00-24 22:38:00 Test Item Value Reference Range Interpretation Comments WBC (test code = WBC) 14.0 3.7-10.4 [facility] HospitalIcksswkSXSSVFHKVK9774-10-33 22:38:00 Test Item Value Reference Range Interpretation Comments RBC (test code = RBC) 5.18 4.70-6.10 [facility] HospitalWqyottaHMONFACSKW9389-82-04 22:38:00 Test Item Value Reference Range Interpretation Comments Hgb (test code = Hgb) 14.2 14.0-18.0 [facility] HospitalZqzabyyMNSXRELOVE0623-76-74 22:38:00 Test Item Value Reference Range Interpretation Comments Hct (test code = Hct) 44.2 42.0-54.0 [facility] HospitalXweeftbFSIHHCMXLX0599-60-80 22:38:00 Test Item Value Reference Range Interpretation Comments MCV (test code = MCV) 85.3 80.0-94.0 [facility] HospitalHadfcicTKNKZMKAKZ2371-57-48 22:38:00 Test Item Value Reference Range Interpretation Comments Basophils (test code = 0.2 See_Comment [Aut omated message] The Basophils) system which ge nerated this result tra nsmitted reference range : <=1.0. The reference r annemarie was not used to int erpret this result as normal/abnormal . [facility] HospitalHzlpwtxDIFAXRATOO5606-20-49 22:38:00 Test Item Value Reference Range Interpretation Comments Eosinophils (test code = 0.1 See_Comment [A utomated message] The Eosinophils) system which ge nerated this result tra nsmitted reference range : <=4.0. The reference r annemarie was not used to int erpret this result as normal/abnormal . [facility] HospitalNuvvpddAYIGWKVGJL4793-06-20 22:38:00 Test Item Value Reference Range Interpretation Comments Monocytes (test code = Monocytes) 2.7 2.0-12.0 [place] 356078-12-13 22:38:00 Test Item Value Reference Range Interpretation Comments Monocytes # (test code 0.4 See_Comment [Aut omated message] The = Monocytes #) system which generated this result tra nsmitted reference range : <=0.8. The reference r annemarie was not used to int erpret this result as normal/abnormal . [facility] HospitalKpdasqrHTQRIDSMES5697-09-28 22:38:00 Test Item Value Reference Range Interpretation Comments Lymphocytes # (test code = Lymphocytes 0.6 1.0-5.5 #) [facility] HospitalJvttmfrXWTYPULORS2476-34-93 22:38:00 Test Item Value Reference Range Interpretation Comments Neutrophils # (test code = Neutrophils 13.0 1.5-8.1 #) [facility] HospitalDndutsxADUZUSYPFZ8177-66-64 22:38:00 Test Item Value Reference Range Interpretation Comments Lymphocytes (test code = Lymphocytes) 4.1 20.0-40.0 [facility] HospitalPbxstgkHREWKTCYJS7801-08-60 22:38:00 Test Item Value Reference Range Interpretation Comments Eosinophils # (test code 0.0 See_Comment [A utomated message] The = Eosinophils #) system whic h generated this result tra nsmitted reference range : <=0.5. The reference r annemarie was not used to int erpret this result as normal/abnormal . [facility] HospitalNdogwznKSQSBGSDWE6726-27-28 22:38:00 Test Item Value Reference Range Interpretation Comments Basophils # (test code 0.0 See_Comment [Aut omated message] The = Basophils #) system which generated this result tra nsmitted reference range : <=0.2. The reference r annemarie was not used to int erpret this result as normal/abnormal . [facility] HospitalFmlnvetYJVAYNHBDW6135-26-32 22:38:00 Test Item Value Reference Range Interpretation Comments RBC Morph (test code = Normal (04/12/18 4:38 RBC Morph) PM) [facility] HospitalPcfasahOAAYGZAGFA6022-71-27 22:38:00 Test Item Value Reference Range Interpretation Comments Plt Morph (test code = Normal (04/12/18 4:38 Plt Morph) PM) [facility] HospitalOdumfhiLSTDNWKRVI0284-50-05 22:38:00 Test Item Value Reference Range Interpretation Comments Segs (test code = Segs) 92.9 45.0-75.0 [facility] HospitalDsjjrwlKPHZZCJYIV7814-68-06 22:38:00 Test Item Value Reference Range Interpretation Comments Large Plt (test code Moderate *ABN*(04/12/18 = Large Plt) 4:38 PM) [facility] [id number] 22:38:00 Test Item Value Reference Range Interpretation Comments Troponin-I (test code 0.02 See_Comment [Auto mated message] The = Troponin-I) system which g enerated this result transmit abdelrahman reference range : <=0.40. The reference r annemarie was not used to interpr et this result as gurpreet l/abnormal. [facility] [id number] 22:38:00 Test Item Value Reference Range Interpretation Comments Total CK (test code = Total CK) 50 12-191 [facility] [id number] 22:38:00 Test Item Value Reference Range Interpretation Comments eGFR (test code = eGFR) 120 [facility] [id number] 22:38:00 Test Item Value Reference Range Interpretation Comments AST (test code = AST) 17 See_Comment [Auto mated message] The system which ge nerated this result transmit abdelrahman reference range : <=37. The reference range was not used to interpr et this result as gurpreet l/abnormal. [facility] [id number] 22:38:00 Test Item Value Reference Range Interpretation Comments ALT (test code = ALT) 23 See_Comment [Auto mated message] The system which ge nerated this result transmit abdelrahman reference range : <=65. The reference range was not used to interpr et this result as gurpreet l/abnormal. [facility] [id number] 22:38:00 Test Item Value Reference Range Interpretation Comments Albumin Lvl (test code = Albumin Lvl) 4.0 3.5-5.0 [facility]2018-12-13 22:38:00 Test Item Value Reference Range Interpretation Comments Total Protein (test code = Total 7.4 6.4-8.4 Protein) [facility]2018-12-13 22:38:00 Test Item Value Reference Range Interpretation Comments Bili Total (test code = Bili Total) 0.3 0.2-1.3 [facility] [id number] 22:38:00 Test Item Value Reference Range Interpretation Comments Alk Phos (test code = Alk Phos) 35 39-136 [facility]2018-12-13 22:38:00 Test Item Value Reference Range Interpretation Comments Chloride Lvl (test code = Chloride Lvl) 103 95-109 [facility]2018-12-13 22:38:00 Test Item Value Reference Range Interpretation Comments Calcium Lvl (test code = Calcium Lvl) 9.4 8.5-10.5 [facility]2018-12-13 22:38:00 Test Item Value Reference Range Interpretation Comments CO2 (test code = CO2) 32 24-32 [facility]2018-12-13 22:38:00 Test Item Value Reference Range Interpretation Comments Potassium Lvl (test code = Potassium 4.2 3.5-5.1 Lvl) [facility]2018-12-13 22:38:00 Test Item Value Reference Range Interpretation Comments Sodium Lvl (test code = Sodium Lvl) 139 135-145 [facility]2018-12-13 22:38:00 Test Item Value Reference Range Interpretation Comments Creatinine Lvl (test code = Creatinine 0.80 0.50-1.40 Lvl) [facility]2018-12-13 22:38:00 Test Item Value Reference Range Interpretation Comments BUN (test code = BUN) 12 7-22 [facility]2018-12-13 22:38:00 Test Item Value Reference Range Interpretation Comments Glucose Lvl (test code = Glucose Lvl) 93 70-99 [facility]2018-12-13 22:38:00 Test Item Value Reference Range Interpretation Comments A/G Ratio (test code = A/G Ratio) 1.2 1 0.7-1.6 [facility]2018-12-13 22:38:00 Test Item Value Reference Range Interpretation Comments Globulin (test code = Globulin) 3.4 2.7-4.2 [facility]2018-12-13 22:38:00 Test Item Value Reference Range Interpretation Comments B/C Ratio (test code = B/C Ratio) 15 1 6-25 [facility]2018-12-13 22:38:00 Test Item Value Reference Range Interpretation Comments AGAP (test code = AGAP) 8.2 10.0-20.0 [facility] HospitalTlnkmfdGECXYLIIWF8786-43-11 22:38:00 Test Item Value Reference Range Interpretation Comments MCHC (test code = MCHC) 32.1 32.0-36.0 [facility] HospitalButabskOEZJCTQJJR8933-30-65 22:38:00 Test Item Value Reference Range Interpretation Comments MCH (test code = MCH) 27.4 pg 27.0-31.0 [facility] HospitalOuwybixXZNDBACZNQ0449-49-22 22:38:00 Test Item Value Reference Range Interpretation Comments Platelet (test code = Platelet) 200 133-450 [facility] HospitalNipxjvpJOPIZXGKUT1289-25-82 22:38:00 Test Item Value Reference Range Interpretation Comments RDW (test code = RDW) 14.4 11.5-14.5 [facility] HospitalRngttmySVVBDWJUCF6381-12-88 22:38:00 Test Item Value Reference Range Interpretation Comments MPV (test code = MPV) 9.1 7.4-10.4 [facility] HospitalVdnejxePAWMJUACVG5283-94-54 22:38:00 Test Item Value Reference Range Interpretation Comments WBC (test code = WBC) 14.0 3.7-10.4 [facility] HospitalPrbpddaMLSBOSCHES9332-22-94 22:38:00 Test Item Value Reference Range Interpretation Comments RBC (test code = RBC) 5.18 4.70-6.10 [facility] HospitalOwdwddoLHLFOITWPM0324-15-53 22:38:00 Test Item Value Reference Range Interpretation Comments Hgb (test code = Hgb) 14.2 14.0-18.0 [facility] HospitalXxquhjlJPDKXHPGBT7492-75-59 22:38:00 Test Item Value Reference Range Interpretation Comments Hct (test code = Hct) 44.2 42.0-54.0 [facility] HospitalElpnfkzUWJURJMLBZ7636-67-47 22:38:00 Test Item Value Reference Range Interpretation Comments MCV (test code = MCV) 85.3 80.0-94.0 [facility] HospitalGtiaksmXXXNUMQXSE2079-94-82 22:38:00 Test Item Value Reference Range Interpretation Comments Basophils (test code = 0.2 See_Comment [Aut omated message] The Basophils) system which ge nerated this result tra nsmitted reference range : <=1.0. The reference r annemarie was not used to int erpret this result as normal/abnormal . [facility] HospitalPvkscwrFVUCNJFJUX0452-89-15 22:38:00 Test Item Value Reference Range Interpretation Comments Eosinophils (test code = 0.1 See_Comment [A utomated message] The Eosinophils) system which ge nerated this result tra nsmitted reference range : <=4.0. The reference r annemarie was not used to int erpret this result as normal/abnormal . [facility] HospitalYuxtvveLCZXWIQPQO5886-40-98 22:38:00 Test Item Value Reference Range Interpretation Comments Monocytes (test code = Monocytes) 2.7 2.0-12.0 [place] [id number] 22:38:00 Test Item Value Reference Range Interpretation Comments Monocytes # (test code 0.4 See_Comment [Aut omated message] The = Monocytes #) system which generated this result tra nsmitted reference range : <=0.8. The reference r annemarie was not used to int erpret this result as normal/abnormal . [facility] HospitalJcxnukuGUVIVNZNDY4261-91-28 22:38:00 Test Item Value Reference Range Interpretation Comments Lymphocytes # (test code = Lymphocytes 0.6 1.0-5.5 #) [facility] HospitalUpyynbqAQSRNNNGXO6370-41-31 22:38:00 Test Item Value Reference Range Interpretation Comments Neutrophils # (test code = Neutrophils 13.0 1.5-8.1 #) [facility] HospitalMulqbcxMMTCXUSFNV5928-08-35 22:38:00 Test Item Value Reference Range Interpretation Comments Lymphocytes (test code = Lymphocytes) 4.1 20.0-40.0 [facility] HospitalRjnxjcaTWZQRGDVYW5732-97-16 22:38:00 Test Item Value Reference Range Interpretation Comments Eosinophils # (test code 0.0 See_Comment [A utomated message] The = Eosinophils #) system whic h generated this result tra nsmitted reference range : <=0.5. The reference r annemarie was not used to int erpret this result as normal/abnormal . [facility] HospitalDeynrltOIGYYJEAJE1380-63-38 22:38:00 Test Item Value Reference Range Interpretation Comments Basophils # (test code 0.0 See_Comment [Aut omated message] The = Basophils #) system which generated this result tra nsmitted reference range : <=0.2. The reference r annemarie was not used to int erpret this result as normal/abnormal . [facility] HospitalRbaklsvGTFKYESHCP9680-91-11 22:38:00 Test Item Value Reference Range Interpretation Comments RBC Morph (test code = Normal (04/12/18 4:38 RBC Morph) PM) [facility] DbpibeoHYLKYQLOWD8269-46-12 22:38:00 Test Item Value Reference Range Interpretation Comments Plt Morph (test code = Normal (04/12/18 4:38 Plt Morph) PM) [facility] AustinWujqhueSBPBTEYZFN5469-80-01 22:38:00 Test Item Value Reference Range Interpretation Comments Segs (test code = Segs) 92.9 45.0-75.0 [facility] VuzwzsrBPCXGANFTQ6679-97-08 22:38:00 Test Item Value Reference Range Interpretation Comments Large Plt (test code Moderate *ABN*(04/12/18 = Large Plt) 4:38 PM) [facility] [employer]2018-12-13 22:38:00 Test Item Value Reference Range Interpretation Comments Troponin-I (test code 0.02 See_Comment [Auto mated message] The = Troponin-I) system which g enerated this result transmit abdelrahman reference range : <=0.40. The reference r annemarie was not used to interpr et this result as gurpreet l/abnormal. [facility] [employer]2018-12-13 22:38:00 Test Item Value Reference Range Interpretation Comments Total CK (test code = Total CK) 50 12-191 [facility] [employer] [id number] 22:38:00 Test Item Value Reference Range Interpretation Comments eGFR (test code = eGFR) 120 [facility] [employer] [id number] 22:38:00 Test Item Value Reference Range Interpretation Comments AST (test code = AST) 17 See_Comment [Auto mated message] The system which ge nerated this result transmit abdelrahman reference range : <=37. The reference range was not used to interpr et this result as gurpreet l/abnormal. [employer] [id number] 22:38:00 Test Item Value Reference Range Interpretation Comments ALT (test code = ALT) 23 See_Comment [Auto mated message] The system which ge nerated this result transmit abdelrahman reference range : <=65. The reference range was not used to interpr et this result as gurpreet l/abnormal. [employer] [id number] 22:38:00 Test Item Value Reference Range Interpretation Comments Albumin Lvl (test code = Albumin Lvl) 4.0 3.5-5.0 [facility]2018-12-13 22:38:00 Test Item Value Reference Range Interpretation Comments Total Protein (test code = Total 7.4 6.4-8.4 Protein) [facility]2018-12-13 22:38:00 Test Item Value Reference Range Interpretation Comments Bili Total (test code = Bili Total) 0.3 0.2-1.3 [facility]2018-12-13 22:38:00 Test Item Value Reference Range Interpretation Comments Alk Phos (test code = Alk Phos) 35 39-136 [facility]2018-12-13 22:38:00 Test Item Value Reference Range Interpretation Comments Chloride Lvl (test code = Chloride Lvl) 103 95-109 [facility]2018-12-13 22:38:00 Test Item Value Reference Range Interpretation Comments Calcium Lvl (test code = Calcium Lvl) 9.4 8.5-10.5 [facility]2018-12-13 22:38:00 Test Item Value Reference Range Interpretation Comments CO2 (test code = CO2) 32 24-32 [facility]2018-12-13 22:38:00 Test Item Value Reference Range Interpretation Comments Potassium Lvl (test code = Potassium 4.2 3.5-5.1 Lvl) [facility]2018-12-13 22:38:00 Test Item Value Reference Range Interpretation Comments Sodium Lvl (test code = Sodium Lvl) 139 135-145 [facility]2018-12-13 22:38:00 Test Item Value Reference Range Interpretation Comments Creatinine Lvl (test code = Creatinine 0.80 0.50-1.40 Lvl) [facility]2018-12-13 22:38:00 Test Item Value Reference Range Interpretation Comments BUN (test code = BUN) 12 7-22 [facility]2018-12-13 22:38:00 Test Item Value Reference Range Interpretation Comments Glucose Lvl (test code = Glucose Lvl) 93 70-99 [facility]2018-12-13 22:38:00 Test Item Value Reference Range Interpretation Comments A/G Ratio (test code = A/G Ratio) 1.2 1 0.7-1.6 [facility]2018-12-13 22:38:00 Test Item Value Reference Range Interpretation Comments Globulin (test code = Globulin) 3.4 2.7-4.2 [facility] [id number] 22:38:00 Test Item Value Reference Range Interpretation Comments B/C Ratio (test code = B/C Ratio) 15 1 6-25 [facility]2018-12-13 22:38:00 Test Item Value Reference Range Interpretation Comments AGAP (test code = AGAP) 8.2 10.0-20.0 [facility] HospitalSzeccoxMLLGSXCIED1501-91-79 22:38:00 Test Item Value Reference Range Interpretation Comments MCHC (test code = MCHC) 32.1 32.0-36.0 [facility] HospitalDghecsfOCMEYDSJTS4552-37-84 22:38:00 Test Item Value Reference Range Interpretation Comments MCH (test code = MCH) 27.4 pg 27.0-31.0 [facility] HospitalWkqnpkjYWZKKMKAAL6178-86-29 22:38:00 Test Item Value Reference Range Interpretation Comments Platelet (test code = Platelet) 200 133-450 [facility] HospitalRjpuhvpHCJMAPPKHP7639-69-30 22:38:00 Test Item Value Reference Range Interpretation Comments RDW (test code = RDW) 14.4 11.5-14.5 [facility] HospitalReejdsxBGFCSNXGST8667-45-02 22:38:00 Test Item Value Reference Range Interpretation Comments MPV (test code = MPV) 9.1 7.4-10.4 [facility] HospitalTkgdpokUAISAAMVEL9034-95-22 22:38:00 Test Item Value Reference Range Interpretation Comments WBC (test code = WBC) 14.0 3.7-10.4 [facility] HospitalBlxakruEDQNWNZJUT9374-89-89 22:38:00 Test Item Value Reference Range Interpretation Comments RBC (test code = RBC) 5.18 4.70-6.10 [facility] HospitalAuaokaqSUYGAXHQVH0777-75-35 22:38:00 Test Item Value Reference Range Interpretation Comments Hgb (test code = Hgb) 14.2 14.0-18.0 [facility] HospitalOfialwyCXQTDQSFHP2259-09-21 22:38:00 Test Item Value Reference Range Interpretation Comments Hct (test code = Hct) 44.2 42.0-54.0 [facility] HospitalFcxswtcOOWYZGYWZO3626-42-62 22:38:00 Test Item Value Reference Range Interpretation Comments MCV (test code = MCV) 85.3 80.0-94.0 [facility] HospitalYoojbnwJLFHCCZXMH7835-73-76 22:38:00 Test Item Value Reference Range Interpretation Comments Basophils (test code = 0.2 See_Comment [Aut omated message] The Basophils) system which ge nerated this result tra nsmitted reference range : <=1.0. The reference r annemarie was not used to int erpret this result as normal/abnormal . [facility] HospitalKcnogxeJCPOOKKTWQ2929-84-35 22:38:00 Test Item Value Reference Range Interpretation Comments Eosinophils (test code = 0.1 See_Comment [A utomated message] The Eosinophils) system which ge nerated this result tra nsmitted reference range : <=4.0. The reference r annemarie was not used to int erpret this result as normal/abnormal . [facility] HospitalKjditjyPVRFGHRMID7172-30-26 22:38:00 Test Item Value Reference Range Interpretation Comments Monocytes (test code = Monocytes) 2.7 2.0-12.0 [facility] HospitalWekeimgAFZDZXYTFE8983-47-26 22:38:00 Test Item Value Reference Range Interpretation Comments Monocytes # (test code 0.4 See_Comment [Aut omated message] The = Monocytes #) system which generated this result tra nsmitted reference range : <=0.8. The reference r annemarie was not used to int erpret this result as normal/abnormal . [facility] HospitalMbwsvojCPNPIKFCBC5241-31-62 22:38:00 Test Item Value Reference Range Interpretation Comments Lymphocytes # (test code = Lymphocytes 0.6 1.0-5.5 #) [facility] HospitalNudmzwmNVGSKPHJZB5984-99-56 22:38:00 Test Item Value Reference Range Interpretation Comments Neutrophils # (test code = Neutrophils 13.0 1.5-8.1 #) [facility] HospitalTktjzowCGSRKWVZRL8132-46-34 22:38:00 Test Item Value Reference Range Interpretation Comments Lymphocytes (test code = Lymphocytes) 4.1 20.0-40.0 [facility] HospitalVexccdtGESLNCSHQW4290-71-15 22:38:00 Test Item Value Reference Range Interpretation Comments Eosinophils # (test code 0.0 See_Comment [A utomated message] The = Eosinophils #) system [facility] h generated this result tra nsmitted reference range : <=0.5. The reference r annemarie was not used to int erpret this result as normal/abnormal . [facility] PumjxftQTUXXRNLFX1747-57-07 22:38:00 Test Item Value Reference Range Interpretation Comments Basophils # (test code 0.0 See_Comment [Aut omated message] The = Basophils #) system which generated this result tra nsmitted reference range : <=0.2. The reference r annemarie was not used to int erpret this result as normal/abnormal . [facility] AustinMvkmlkvVBHAHBCTLT7494-31-78 22:38:00 Test Item Value Reference Range Interpretation Comments RBC Morph (test code = Normal (04/12/18 4:38 RBC Morph) PM) [facility] AustinIsqenrcTIVDJILPLE2244-39-65 22:38:00 Test Item Value Reference Range Interpretation Comments Plt Morph (test code = Normal (04/12/18 4:38 Plt Morph) PM) [facility] AustinWwwsxpxRDKPVLVPNO5146-99-88 22:38:00 Test Item Value Reference Range Interpretation Comments Segs (test code = Segs) 92.9 45.0-75.0 [facility] AustinFhilwhpBDALREQAGO9935-18-79 22:38:00 Test Item Value Reference Range Interpretation Comments Large Plt (test code Moderate *ABN*(04/12/18 = Large Plt) 4:38 PM) [facility] AustinIMshoppingCARM[employer] TechnologiesAC ZNMSJGR9943-14-17 22:38:00 Test Item Value Reference Range Interpretation Comments Troponin-I (test code 0.02 See_Comment [Auto mated message] The = Troponin-I) system which g enerated this result transmit abdelrahman reference range : <=0.40. The reference r annemarie was not used to interpr et this result as gurpreet l/abnormal. [facility] [employer] [id number] 22:38:00 Test Item Value Reference Range Interpretation Comments Total CK (test code = Total CK) 50 12-191 [facility] [employer] [id number] 22:38:00 Test Item Value Reference Range Interpretation Comments eGFR (test code = eGFR) 120 [facility] TRDGZ5377-90-51 22:38:00 Test Item Value Reference Range Interpretation Comments AST (test code = AST) 17 See_Comment [Auto mated message] The system which ge nerated this result transmit abdelrahman reference range : <=37. The reference range was not used to interpr et this result as gurpreet l/abnormal. [facility]2018-12-13 22:38:00 Test Item Value Reference Range Interpretation Comments ALT (test code = ALT) 23 See_Comment [Auto mated message] The system which ge nerated this result transmit abdelrahman reference range : <=65. The reference range was not used to interpr et this result as gurpreet l/abnormal. [facility]2018-12-13 22:38:00 Test Item Value Reference Range Interpretation Comments Albumin Lvl (test code = Albumin Lvl) 4.0 3.5-5.0 [facility]2018-12-13 22:38:00 Test Item Value Reference Range Interpretation Comments Total Protein (test code = Total 7.4 6.4-8.4 Protein) [facility]2018-12-13 22:38:00 Test Item Value Reference Range Interpretation Comments Bili Total (test code = Bili Total) 0.3 0.2-1.3 [facility]2018-12-13 22:38:00 Test Item Value Reference Range Interpretation Comments Alk Phos (test code = Alk Phos) 35 39-136 [facility]2018-12-13 22:38:00 Test Item Value Reference Range Interpretation Comments Chloride Lvl (test code = Chloride Lvl) 103 95-109 [facility]2018-12-13 22:38:00 Test Item Value Reference Range Interpretation Comments Calcium Lvl (test code = Calcium Lvl) 9.4 8.5-10.5 [facility]2018-12-13 22:38:00 Test Item Value Reference Range Interpretation Comments CO2 (test code = CO2) 32 24-32 [facility]2018-12-13 22:38:00 Test Item Value Reference Range Interpretation Comments Potassium Lvl (test code = Potassium 4.2 3.5-5.1 Lvl) [facility]2018-12-13 22:38:00 Test Item Value Reference Range Interpretation Comments Sodium Lvl (test code = Sodium Lvl) 139 135-145 [facility]2018-12-13 22:38:00 Test Item Value Reference Range Interpretation Comments Creatinine Lvl (test code = Creatinine 0.80 0.50-1.40 Lvl) [facility]2018-12-13 22:38:00 Test Item Value Reference Range Interpretation Comments BUN (test code = BUN) 12 7-22 [facility]2018-12-13 22:38:00 Test Item Value Reference Range Interpretation Comments Glucose Lvl (test code = Glucose Lvl) 93 70-99 [facility]2018-12-13 22:38:00 Test Item Value Reference Range Interpretation Comments A/G Ratio (test code = A/G Ratio) 1.2 1 0.7-1.6 [facility]2018-12-13 22:38:00 Test Item Value Reference Range Interpretation Comments Globulin (test code = Globulin) 3.4 2.7-4.2 [facility]2018-12-13 22:38:00 Test Item Value Reference Range Interpretation Comments B/C Ratio (test code = B/C Ratio) 15 1 6-25 [facility]2018-12-13 22:38:00 Test Item Value Reference Range Interpretation Comments AGAP (test code = AGAP) 8.2 10.0-20.0 [facility] HospitalJxlunmtIEACLOXXIJ5020-84-53 22:38:00 Test Item Value Reference Range Interpretation Comments MCHC (test code = MCHC) 32.1 32.0-36.0 [facility] HospitalUaywskkFRRGEQSMVQ4107-53-25 22:38:00 Test Item Value Reference Range Interpretation Comments MCH (test code = MCH) 27.4 pg 27.0-31.0 [facility] HospitalKhhxcreTFXCTCQJBJ2288-65-39 22:38:00 Test Item Value Reference Range Interpretation Comments Platelet (test code = Platelet) 200 133-450 [facility] HospitalOgviklbMKBOVYLQZJ4086-74-97 22:38:00 Test Item Value Reference Range Interpretation Comments RDW (test code = RDW) 14.4 11.5-14.5 [facility] HospitalVnsoxzrCIVPMWBNMX5467-29-05 22:38:00 Test Item Value Reference Range Interpretation Comments MPV (test code = MPV) 9.1 7.4-10.4 [facility] HospitalGutzdlmAYEEJACUGK4960-22-96 22:38:00 Test Item Value Reference Range Interpretation Comments WBC (test code = WBC) 14.0 3.7-10.4 [facility] HospitalBbdlndlLPJVTXTZCC1072-86-80 22:38:00 Test Item Value Reference Range Interpretation Comments RBC (test code = RBC) 5.18 4.70-6.10 [facility] HospitalQsmvhrsWOZKAZPHLR6857-55-43 22:38:00 Test Item Value Reference Range Interpretation Comments Hgb (test code = Hgb) 14.2 14.0-18.0 [facility] HospitalQdcfetyGLYFPNKLVU2061-97-70 22:38:00 Test Item Value Reference Range Interpretation Comments Hct (test code = Hct) 44.2 42.0-54.0 [facility] HospitalEsbpqoaXBZLGQWLEM7628-02-60 22:38:00 Test Item Value Reference Range Interpretation Comments MCV (test code = MCV) 85.3 80.0-94.0 [facility] HospitalNhbomyjKDWLJPJYSJ2643-44-73 22:38:00 Test Item Value Reference Range Interpretation Comments Basophils (test code = 0.2 See_Comment [Aut omated message] The Basophils) system which ge nerated this result tra nsmitted reference range : <=1.0. The reference r annemarie was not used to int erpret this result as normal/abnormal . [facility] HospitalSitubblRIBAHJYBHY4083-36-96 22:38:00 Test Item Value Reference Range Interpretation Comments Eosinophils (test code = 0.1 See_Comment [A utomated message] The Eosinophils) system which ge nerated this result tra nsmitted reference range : <=4.0. The reference r annemarie was not used to int erpret this result as normal/abnormal . [facility] HospitalZysrzqnIRCSYJDLRZ5299-89-56 22:38:00 Test Item Value Reference Range Interpretation Comments Monocytes (test code = Monocytes) 2.7 2.0-12.0 [facility] HospitalPnslypxABGVOEHKDJ7398-72-65 22:38:00 Test Item Value Reference Range Interpretation Comments Monocytes # (test code 0.4 See_Comment [Aut omated message] The = Monocytes #) system which generated this result tra nsmitted reference range : <=0.8. The reference r annemarie was not used to int erpret this result as normal/abnormal . [facility] HospitalSopdncoYEQAAJJIBX9428-36-35 22:38:00 Test Item Value Reference Range Interpretation Comments Lymphocytes # (test code = Lymphocytes 0.6 1.0-5.5 #) [facility] HospitalXaxroheOXRVMBHLAP6382-48-56 22:38:00 Test Item Value Reference Range Interpretation Comments Neutrophils # (test code = Neutrophils 13.0 1.5-8.1 #) [facility] HospitalZaczxqjOULCHRDGJW4873-78-11 22:38:00 Test Item Value Reference Range Interpretation Comments Lymphocytes (test code = Lymphocytes) 4.1 20.0-40.0 [facility] HospitalLrchwawMABMEGFNRP8498-76-14 22:38:00 Test Item Value Reference Range Interpretation Comments Eosinophils # (test code 0.0 See_Comment [A utomated message] The = Eosinophils #) system whic h generated this result tra nsmitted reference range : <=0.5. The reference r annemarie was not used to int erpret this result as normal/abnormal . [facility] HospitalEnapgloAJBOYMKSXY0744-96-38 22:38:00 Test Item Value Reference Range Interpretation Comments Basophils # (test code 0.0 See_Comment [Aut omated message] The = Basophils #) system which generated this result tra nsmitted reference range : <=0.2. The reference r annemarie was not used to int erpret this result as normal/abnormal . [facility] HospitalNjznnaoIZTDKRVQHH8463-38-67 22:38:00 Test Item Value Reference Range Interpretation Comments RBC Morph (test code = Normal (04/12/18 4:38 RBC Morph) PM) [facility] HospitalBygenncUZBXTGWZRD5738-01-60 22:38:00 Test Item Value Reference Range Interpretation Comments Plt Morph (test code = Normal (04/12/18 4:38 Plt Morph) PM) [facility] HospitalNnqttcuKYUCTDAXBL0277-69-93 22:38:00 Test Item Value Reference Range Interpretation Comments Segs (test code = Segs) 92.9 45.0-75.0 [facility] HospitalShfshgkTXAQZGAXGS9119-43-96 22:38:00 Test Item Value Reference Range Interpretation Comments Large Plt (test code Moderate *ABN*(04/12/18 = Large Plt) 4:38 PM) [facility] LTSACLD2679-65-82 22:38:00 Test Item Value Reference Range Interpretation Comments Troponin-I (test code 0.02 See_Comment [Auto mated message] The = Troponin-I) system which g enerated this result transmit abdelrahman reference range : <=0.40. The reference r annemraie was not used to interpr et this result as gurpreet l/abnormal. [facility] NMZULPY4988-06-38 22:38:00 Test Item Value Reference Range Interpretation Comments Total CK (test code = Total CK) 50 12-191 [facility]2018-12-13 22:38:00 Test Item Value Reference Range Interpretation Comments eGFR (test code = eGFR) 120 [facility]2018-12-13 22:38:00 Test Item Value Reference Range Interpretation Comments AST (test code = AST) 17 See_Comment [Auto mated message] The system which ge nerated this result transmit abdelrahman reference range : <=37. The reference range was not used to interpr et this result as gurpreet l/abnormal. [facility]2018-12-13 22:38:00 Test Item Value Reference Range Interpretation Comments ALT (test code = ALT) 23 See_Comment [Auto mated message] The system which ge nerated this result transmit abdelrahman reference range : <=65. The reference range was not used to interpr et this result as gurpreet l/abnormal. [facility]2018-12-13 22:38:00 Test Item Value Reference Range Interpretation Comments Albumin Lvl (test code = Albumin Lvl) 4.0 3.5-5.0 [facility]2018-12-13 22:38:00 Test Item Value Reference Range Interpretation Comments Total Protein (test code = Total 7.4 6.4-8.4 Protein) [facility]2018-12-13 22:38:00 Test Item Value Reference Range Interpretation Comments Bili Total (test code = Bili Total) 0.3 0.2-1.3 [facility]2018-12-13 22:38:00 Test Item Value Reference Range Interpretation Comments Alk Phos (test code = Alk Phos) 35 39-136 [facility]2018-12-13 22:38:00 Test Item Value Reference Range Interpretation Comments Chloride Lvl (test code = Chloride Lvl) 103 95-109 [facility]2018-12-13 22:38:00 Test Item Value Reference Range Interpretation Comments Calcium Lvl (test code = Calcium Lvl) 9.4 8.5-10.5 [facility]2018-12-13 22:38:00 Test Item Value Reference Range Interpretation Comments CO2 (test code = CO2) 32 24-32 [facility]2018-12-13 22:38:00 Test Item Value Reference Range Interpretation Comments Potassium Lvl (test code = Potassium 4.2 3.5-5.1 Lvl) [facility]2018-12-13 22:38:00 Test Item Value Reference Range Interpretation Comments Sodium Lvl (test code = Sodium Lvl) 139 135-145 [facility]2018-12-13 22:38:00 Test Item Value Reference Range Interpretation Comments Creatinine Lvl (test code = Creatinine 0.80 0.50-1.40 Lvl) [facility]2018-12-13 22:38:00 Test Item Value Reference Range Interpretation Comments BUN (test code = BUN) 12 7-22 [facility]2018-12-13 22:38:00 Test Item Value Reference Range Interpretation Comments Glucose Lvl (test code = Glucose Lvl) 93 70-99 [facility]2018-12-13 22:38:00 Test Item Value Reference Range Interpretation Comments A/G Ratio (test code = A/G Ratio) 1.2 1 0.7-1.6 [facility]2018-12-13 22:38:00 Test Item Value Reference Range Interpretation Comments Globulin (test code = Globulin) 3.4 2.7-4.2 [facility]2018-12-13 22:38:00 Test Item Value Reference Range Interpretation Comments B/C Ratio (test code = B/C Ratio) 15 1 6-25 [facility]2018-12-13 22:38:00 Test Item Value Reference Range Interpretation Comments AGAP (test code = AGAP) 8.2 10.0-20.0 [facility] HospitalPbdmkxkLPLONHFXQA4637-86-23 22:38:00 Test Item Value Reference Range Interpretation Comments MCHC (test code = MCHC) 32.1 32.0-36.0 [facility] HospitalExmrhboNJFUNHQXBX6597-74-34 22:38:00 Test Item Value Reference Range Interpretation Comments MCH (test code = MCH) 27.4 pg 27.0-31.0 [facility] HospitalXmtlilqPHROPLLTIN1881-16-98 22:38:00 Test Item Value Reference Range Interpretation Comments Platelet (test code = Platelet) 200 133-450 [facility] HospitalTjtkyhzREPHIENPHI9085-28-44 22:38:00 Test Item Value Reference Range Interpretation Comments RDW (test code = RDW) 14.4 11.5-14.5 [facility] HospitalFcgvijzKRZJTJQFPJ9025-13-48 22:38:00 Test Item Value Reference Range Interpretation Comments MPV (test code = MPV) 9.1 7.4-10.4 [facility] HospitalPwzpmjcJZNLMIVXCS8248-67-61 22:38:00 Test Item Value Reference Range Interpretation Comments WBC (test code = WBC) 14.0 3.7-10.4 [facility] HospitalIxslixaYAMPSBVRPL8435-37-76 22:38:00 Test Item Value Reference Range Interpretation Comments RBC (test code = RBC) 5.18 4.70-6.10 [facility] HospitalJmayrvmIQUFZWMDTE6179-55-89 22:38:00 Test Item Value Reference Range Interpretation Comments Hgb (test code = Hgb) 14.2 14.0-18.0 [facility] HospitalDwutlrsWZUZWYXAWY6746-65-93 22:38:00 Test Item Value Reference Range Interpretation Comments Hct (test code = Hct) 44.2 42.0-54.0 [facility] HospitalIviggztFIAEYXVCOR7172-11-22 22:38:00 Test Item Value Reference Range Interpretation Comments MCV (test code = MCV) 85.3 80.0-94.0 [facility] HospitalCzrgqbhJKOXXDISMJ3238-86-89 22:38:00 Test Item Value Reference Range Interpretation Comments Basophils (test code = 0.2 See_Comment [Aut omated message] The Basophils) system which ge nerated this result tra nsmitted reference range : <=1.0. The reference r annemarie was not used to int erpret this result as normal/abnormal . [facility] HospitalJsjoizaCKIUVNVQDG6090-14-03 22:38:00 Test Item Value Reference Range Interpretation Comments Eosinophils (test code = 0.1 See_Comment [A utomated message] The Eosinophils) system which ge nerated this result tra nsmitted reference range : <=4.0. The reference r annemarie was not used to int erpret this result as normal/abnormal . [facility] HospitalPcizfkoSQDHKRLVZW2687-40-57 22:38:00 Test Item Value Reference Range Interpretation Comments Monocytes (test code = Monocytes) 2.7 2.0-12.0 [facility] HospitalWaftbbvLLTDFJFBGL2153-73-92 22:38:00 Test Item Value Reference Range Interpretation Comments Monocytes # (test code 0.4 See_Comment [Aut omated message] The = Monocytes #) system which generated this result tra nsmitted reference range : <=0.8. The reference r annemarie was not used to int erpret this result as normal/abnormal . [facility] HospitalAkzysopXSSCIVJMKB9253-10-75 22:38:00 Test Item Value Reference Range Interpretation Comments Lymphocytes # (test code = Lymphocytes 0.6 1.0-5.5 #) [facility] HospitalQfwanmuPVYLSMXPZF9192-44-13 22:38:00 Test Item Value Reference Range Interpretation Comments Neutrophils # (test code = Neutrophils 13.0 1.5-8.1 #) [facility] HospitalZoakeuaJKYFTJTMBG1115-55-07 22:38:00 Test Item Value Reference Range Interpretation Comments Lymphocytes (test code = Lymphocytes) 4.1 20.0-40.0 [facility] HospitalXjjuovyURXRJZEZGH5341-95-05 22:38:00 Test Item Value Reference Range Interpretation Comments Eosinophils # (test code 0.0 See_Comment [A utomated message] The = Eosinophils #) system whic h generated this result tra nsmitted reference range : <=0.5. The reference r annemarie was not used to int erpret this result as normal/abnormal . [facility] HospitalXqghxfmDVZKJDYMVV4697-76-07 22:38:00 Test Item Value Reference Range Interpretation Comments Basophils # (test code 0.0 See_Comment [Aut omated message] The = Basophils #) system which generated this result tra nsmitted reference range : <=0.2. The reference r annemarie was not used to int erpret this result as normal/abnormal . [facility] HospitalYlqvzfaNCGGMVWIPK4982-67-26 22:38:00 Test Item Value Reference Range Interpretation Comments RBC Morph (test code = Normal (04/12/18 4:38 RBC Morph) PM) [facility] HospitalSbsghswBIENGJVHNB9601-02-45 22:38:00 Test Item Value Reference Range Interpretation Comments Plt Morph (test code = Normal (04/12/18 4:38 Plt Morph) PM) [facility] HospitalQgzvqimMHLCYNBGUM9659-76-08 22:38:00 Test Item Value Reference Range Interpretation Comments Segs (test code = Segs) 92.9 45.0-75.0 [facility] HospitalMdpcfbtPLWBEUUUWF0123-97-15 22:38:00 Test Item Value Reference Range Interpretation Comments Large Plt (test code Moderate *ABN*(04/12/18 = Large Plt) 4:38 PM) [facility]2017-01-01 03:21:00 Test Item Value Reference Range Interpretation Comments Total CK (test code = Total CK) 3725 12-191 [facility] HospitalTugkevcBUPUNXYMROVI2152-53-01 03:21:00 Test Item Value Reference Range Interpretation Comments AGAP (test code = AGAP) 14.1 10.0-20.0 [facility] HospitalPawlanyFHUODHSGDMTQ5498-45-89 03:21:00 Test Item Value Reference Range Interpretation Comments B/C Ratio (test code = B/C Ratio) 11 6-25 [facility] HospitalAosgwemAQWDLREEXNGY2885-91-69 03:21:00 Test Item Value Reference Range Interpretation Comments Globulin (test code = Globulin) 3.2 2.7-4.2 [facility] HospitalYwqyexkTFDIVJLZAWLW0234-04-53 03:21:00 Test Item Value Reference Range Interpretation Comments A/G Ratio (test code = A/G Ratio) 1.3 0.7-1.6 [facility] HospitalTabsjfgLVTURZKQTQVE0367-24-07 03:21:00 Test Item Value Reference Range Interpretation Comments Bili Total (test code = Bili Total) 0.4 0.2-1.3 [facility] HospitalUbtlbmoOAXNOSOQTFCC7098-36-03 03:21:00 Test Item Value Reference Range Interpretation Comments eGFR (test code = eGFR) 102 [facility] HospitalNfdjpppXNNFKKWAWAVY1629-86-46 03:21:00 Test Item Value Reference Range Interpretation Comments Albumin Lvl (test code = Albumin Lvl) 4.2 3.5-5.0 [facility] HospitalLsezflzSXEXBDTDKUCJ5625-35-00 03:21:00 Test Item Value Reference Range Interpretation Comments Alk Phos (test code = Alk Phos) 48 39-136 [facility] HospitalUnfujaiNEUNXHJDLBPO4173-74-88 03:21:00 Test Item Value Reference Range Interpretation Comments AST (test code = AST) 144 See_Comment [Auto mated message] The system which ge nerated this result transmit abdelrahman reference range : <=37. The reference range was not used to interpr et this result as gurpreet l/abnormal. [facility] HospitalEctbpjnJNQPIPQBMCAV7209-54-18 03:21:00 Test Item Value Reference Range Interpretation Comments Glucose Lvl (test code = Glucose Lvl) 75 70-99 [facility] HospitalAoodmexBURQGGGFEQJC1499-04-69 03:21:00 Test Item Value Reference Range Interpretation Comments BUN (test code = BUN) 11 7-22 [facility] HospitalIhbwvybUZZSWXOEDWGN9402-18-89 03:21:00 Test Item Value Reference Range Interpretation Comments Potassium Lvl (test code = Potassium 4.1 3.5-5.1 Lvl) [facility] HospitalEauworkMTWQSLOVEIBU9966-82-44 03:21:00 Test Item Value Reference Range Interpretation Comments Creatinine Lvl (test code = Creatinine 1.00 0.50-1.40 Lvl) [facility] HospitalExlnuatYFMDJAVJRIJV4440-56-02 03:21:00 Test Item Value Reference Range Interpretation Comments Sodium Lvl (test code = Sodium Lvl) 140 135-145 [facility] HospitalAxcifnlURNGHRKLWEDW6735-40-47 03:21:00 Test Item Value Reference Range Interpretation Comments Chloride Lvl (test code = Chloride Lvl) 106 95-109 [facility] HospitalQdviaieELSIEUQUPPRW6121-61-59 03:21:00 Test Item Value Reference Range Interpretation Comments CO2 (test code = CO2) 24 24-32 [facility] HospitalMjympklVCYLHMMLIRKN5663-35-79 03:21:00 Test Item Value Reference Range Interpretation Comments Total Protein (test code = Total 7.4 6.4-8.4 Protein) [facility] HospitalUmnvzudTTMUMECANWOG3117-88-74 03:21:00 Test Item Value Reference Range Interpretation Comments Calcium Lvl (test code = Calcium Lvl) 9.1 8.5-10.5 [facility] HospitalEgukcgqMFLLZKBYGDQF7359-19-88 03:21:00 Test Item Value Reference Range Interpretation Comments ALT (test code = ALT) 52 See_Comment [Auto mated message] The system which ge nerated this result transmit abdelrahman reference range : <=65. The reference range was not used to interpr et this result as gurpreet l/abnormal. [facility] HospitalYdhlfcwXUTQYRHWDN8719-46-92 03:21:00 Test Item Value Reference Range Interpretation Comments MCV (test code = MCV) 86.0 80.0-94.0 [facility] HospitalQduclrsDGLJJQWHUT7712-50-09 03:21:00 Test Item Value Reference Range Interpretation Comments MCH (test code = MCH) 29.7 pg 27.0-31.0 [facility] HospitalHdforsjXZTGDLTMPS6588-14-67 03:21:00 Test Item Value Reference Range Interpretation Comments Hct (test code = Hct) 41.0 42.0-54.0 [facility] HospitalPoddrncRBUXGESQBZ9295-69-16 03:21:00 Test Item Value Reference Range Interpretation Comments RBC (test code = RBC) 4.77 4.70-6.10 [facility] HospitalCfrgivaNKTBQXRWQF2654-31-35 03:21:00 Test Item Value Reference Range Interpretation Comments WBC (test code = WBC) 8.8 3.7-10.4 [facility] HospitalQewkmyaBAACXDDHKP7336-40-16 03:21:00 Test Item Value Reference Range Interpretation Comments Hgb (test code = Hgb) 14.2 14.0-18.0 [facility] HospitalTzzhgyfDOFMMUJXXI6191-07-24 03:21:00 Test Item Value Reference Range Interpretation Comments Platelet (test code = Platelet) 141 133-450 [facility] HospitalXngzdhxKGQOUNJOFZ4479-10-58 03:21:00 Test Item Value Reference Range Interpretation Comments MCHC (test code = MCHC) 34.5 32.0-36.0 [facility] HospitalBqteotoSCNYAFFXSR6546-86-01 03:21:00 Test Item Value Reference Range Interpretation Comments RDW (test code = RDW) 13.5 11.5-14.5 [facility] HospitalGeqrdgjKMFLYRCQNW9970-46-00 03:21:00 Test Item Value Reference Range Interpretation Comments MPV (test code = MPV) 8.9 7.4-10.4 [facility] HospitalIeyuxttFTXCEFUENF5074-54-57 03:21:00 Test Item Value Reference Range Interpretation Comments Lymphocytes (test code = Lymphocytes) 21.1 20.0-40.0 [facility] HospitalRbpaxjlJOWMDLVWTT0619-54-48 03:21:00 Test Item Value Reference Range Interpretation Comments Monocytes (test code = Monocytes) 11.7 2.0-12.0 [facility] HospitalIeqzazvBCZFZURDKG7841-68-68 03:21:00 Test Item Value Reference Range Interpretation Comments Lymphocytes # (test code = Lymphocytes 1.8 1.0-5.5 #) [facility] HospitalJfmvgmbTABHWPUJDZ5253-24-68 03:21:00 Test Item Value Reference Range Interpretation Comments Segs-Bands # (test code = Segs-Bands #) 5.7 1.5-8.1 [facility] HospitalSvbnfnmQIPNRMZOFJ2641-01-06 03:21:00 Test Item Value Reference Range Interpretation Comments Eosinophils (test code = 1.7 See_Comment [A utomated message] The Eosinophils) system which ge nerated this result tra nsmitted reference range : <=4.0. The reference r annemarie was not used to int erpret this result as normal/abnormal . [facility] HospitalFjlzccgLFKSGHEHEG1269-86-09 03:21:00 Test Item Value Reference Range Interpretation Comments Basophils (test code = 0.8 See_Comment [Aut omated message] The Basophils) system which ge nerated this result tra nsmitted reference range : <=1.0. The reference r annemarie was not used to int erpret this result as normal/abnormal . [facility] HospitalOsuexgaDNAXUMPYCS6269-28-43 03:21:00 Test Item Value Reference Range Interpretation Comments Basophils # (test code 0.1 See_Comment [Aut omated message] The = Basophils #) system which generated this result tra nsmitted reference range : <=0.2. The reference r annemarie was not used to int erpret this result as normal/abnormal . [facility] HospitalAhccwysGDBOBLJKUQ8912-96-30 03:21:00 Test Item Value Reference Range Interpretation Comments Monocytes # (test code 1.0 See_Comment [Aut omated message] The = Monocytes #) system which generated this result tra nsmitted reference range : <=0.8. The reference r annemarie was not used to int erpret this result as normal/abnormal . [facility] HospitalIckovocXWCWKZKBKD8597-95-94 03:21:00 Test Item Value Reference Range Interpretation Comments Eosinophils # (test code 0.2 See_Comment [A utomated message] The = Eosinophils #) system whic h generated this result tra nsmitted reference range : <=0.5. The reference r annemarie was not used to int erpret this result as normal/abnormal . [facility] HospitalRcvecwsHYTMEPYEAF6551-08-18 03:21:00 Test Item Value Reference Range Interpretation Comments Segs (test code = Segs) 64.7 45.0-75.0 [facility] ZHTVEZK4119-21-73 03:21:00 Test Item Value Reference Range Interpretation Comments Total CK (test code = Total CK) 3725 12-191 [facility] HospitalOysvcieBYHWSQCFUWPP1463-55-98 03:21:00 Test Item Value Reference Range Interpretation Comments AGAP (test code = AGAP) 14.1 10.0-20.0 [facility] HospitalZaoogmaEANQVQOJTFML9604-53-34 03:21:00 Test Item Value Reference Range Interpretation Comments B/C Ratio (test code = B/C Ratio) 11 6-25 [facility] HospitalHqsmalmRMFOXFTZVLJD4145-23-77 03:21:00 Test Item Value Reference Range Interpretation Comments Globulin (test code = Globulin) 3.2 2.7-4.2 [facility] HospitalTrtgnzqTBWNMZVZLHOP5850-28-35 03:21:00 Test Item Value Reference Range Interpretation Comments A/G Ratio (test code = A/G Ratio) 1.3 0.7-1.6 [facility] HospitalEosrxtzUJCSKBIWVBTE1226-38-98 03:21:00 Test Item Value Reference Range Interpretation Comments Bili Total (test code = Bili Total) 0.4 0.2-1.3 [facility] HospitalObtgrhgMGKKGYQQFHYU3935-47-43 03:21:00 Test Item Value Reference Range Interpretation Comments eGFR (test code = eGFR) 102 [facility] HospitalLrnxerhZYNZOMNTDIMJ9852-61-31 03:21:00 Test Item Value Reference Range Interpretation Comments Albumin Lvl (test code = Albumin Lvl) 4.2 3.5-5.0 [facility] HospitalUylrujqVMVSTYKIRCRN4981-40-42 03:21:00 Test Item Value Reference Range Interpretation Comments Alk Phos (test code = Alk Phos) 48 39-136 [facility] HospitalBgosnwpEPBDSUNRRLCO1113-21-95 03:21:00 Test Item Value Reference Range Interpretation Comments AST (test code = AST) 144 See_Comment [Auto mated message] The system which ge nerated this result transmit abdelrahman reference range : <=37. The reference range was not used to interpr et this result as gurpreet l/abnormal. [facility] HospitalJukgomcOCCJPJBWXQXZ4668-99-68 03:21:00 Test Item Value Reference Range Interpretation Comments Glucose Lvl (test code = Glucose Lvl) 75 70-99 [facility] HospitalWsmbhmcNYPOVKYTZXQS4872-64-61 03:21:00 Test Item Value Reference Range Interpretation Comments BUN (test code = BUN) 11 7-22 [facility] HospitalIumcwsyDQIULJHAHCCS5065-95-90 03:21:00 Test Item Value Reference Range Interpretation Comments Potassium Lvl (test code = Potassium 4.1 3.5-5.1 Lvl) [facility] HospitalHfugxezZKEGYMZADHWX0046-60-61 03:21:00 Test Item Value Reference Range Interpretation Comments Creatinine Lvl (test code = Creatinine 1.00 0.50-1.40 Lvl) [facility]QtuctalKISVSQCDUFPY5651-87-87 03:21:00 Test Item Value Reference Range Interpretation Comments Sodium Lvl (test code = Sodium Lvl) 140 135-145 [facility] HospitalBepbwszUTYRDKMKRUOO0697-09-99 03:21:00 Test Item Value Reference Range Interpretation Comments Chloride Lvl (test code = Chloride Lvl) 106 95-109 [facility] HospitalNkvmuelHJRHMQFXDZRS7210-41-18 03:21:00 Test Item Value Reference Range Interpretation Comments CO2 (test code = CO2) 24 24-32 [facility] HospitalUxctsxiFAVOZGAOWFNG1777-41-89 03:21:00 Test Item Value Reference Range Interpretation Comments Total Protein (test code = Total 7.4 6.4-8.4 Protein) [facility] HospitalJgnqazvPYJPENGPMRGP0153-12-03 03:21:00 Test Item Value Reference Range Interpretation Comments Calcium Lvl (test code = Calcium Lvl) 9.1 8.5-10.5 [facility] HospitalRghumvdPSVGUYEOOFMU6162-80-68 03:21:00 Test Item Value Reference Range Interpretation Comments ALT (test code = ALT) 52 See_Comment [Auto mated message] The system which ge nerated this result transmit abdelrahman reference range : <=65. The reference range was not used to interpr et this result as gurpreet l/abnormal. [facility]SfeufqqXZLOYPAVQE9412-49-18 03:21:00 Test Item Value Reference Range Interpretation Comments MCV (test code = MCV) 86.0 80.0-94.0 [facility] HospitalYfqqhqlNKBCXJTAMC8261-37-06 03:21:00 Test Item Value Reference Range Interpretation Comments MCH (test code = MCH) 29.7 pg 27.0-31.0 [facility] HospitalQpniorkTJJIQXLXBL6505-86-31 03:21:00 Test Item Value Reference Range Interpretation Comments Hct (test code = Hct) 41.0 42.0-54.0 [facility] HospitalQehgkzlXHPVTHUTZP8016-60-80 03:21:00 Test Item Value Reference Range Interpretation Comments RBC (test code = RBC) 4.77 4.70-6.10 [facility] HospitalAzjgatlWAWHDUSZCE7931-85-73 03:21:00 Test Item Value Reference Range Interpretation Comments WBC (test code = WBC) 8.8 3.7-10.4 [facility] HospitalXzneialGZYZHPTLFU2815-16-92 03:21:00 Test Item Value Reference Range Interpretation Comments Hgb (test code = Hgb) 14.2 14.0-18.0 [facility] HospitalOzwmqfwXGCHZIFXQI9472-20-98 03:21:00 Test Item Value Reference Range Interpretation Comments Platelet (test code = Platelet) 141 133-450 [facility] HospitalFguchxiXNHWWKEUOD8650-63-23 03:21:00 Test Item Value Reference Range Interpretation Comments MCHC (test code = MCHC) 34.5 32.0-36.0 [facility] HospitalQsxtyqqYEDFJIRCRT1767-71-14 03:21:00 Test Item Value Reference Range Interpretation Comments RDW (test code = RDW) 13.5 11.5-14.5 [facility] HospitalSobfhegFLDYBUGFCX2013-61-73 03:21:00 Test Item Value Reference Range Interpretation Comments MPV (test code = MPV) 8.9 7.4-10.4 [facility] HospitalOxjepyyOIRXXQYAAG3791-14-19 03:21:00 Test Item Value Reference Range Interpretation Comments Lymphocytes (test code = Lymphocytes) 21.1 20.0-40.0 [facility] HospitalItbaevgQKIAYXFJJA8605-47-38 03:21:00 Test Item Value Reference Range Interpretation Comments Monocytes (test code = Monocytes) 11.7 2.0-12.0 [facility] HospitalFbwgbwxAIWBBEPASI1021-37-22 03:21:00 Test Item Value Reference Range Interpretation Comments Lymphocytes # (test code = Lymphocytes 1.8 1.0-5.5 #) [facility] HospitalWcpuwqlHIEKUJNRFC1287-40-64 03:21:00 Test Item Value Reference Range Interpretation Comments Segs-Bands # (test code = Segs-Bands #) 5.7 1.5-8.1 [facility] HospitalGhhahsuLRKWXKRQPG8255-13-78 03:21:00 Test Item Value Reference Range Interpretation Comments Eosinophils (test code = 1.7 See_Comment [A utomated message] The Eosinophils) system which ge nerated this result tra nsmitted reference range : <=4.0. The reference r annemarie was not used to int erpret this result as normal/abnormal . [facility] HospitalYudyiqhSUHMVUAUFL6445-98-16 03:21:00 Test Item Value Reference Range Interpretation Comments Basophils (test code = 0.8 See_Comment [Aut omated message] The Basophils) system which ge nerated this result tra nsmitted reference range : <=1.0. The reference r annemarie was not used to int erpret this result as normal/abnormal . [facility] HospitalBcjrmdxSWCBGSFKPO7871-17-47 03:21:00 Test Item Value Reference Range Interpretation Comments Basophils # (test code 0.1 See_Comment [Aut omated message] The = Basophils #) system which generated this result tra nsmitted reference range : <=0.2. The reference r annemarie was not used to int erpret this result as normal/abnormal . [facility] HospitalBmuevesXQDWUGVJXL8767-46-32 03:21:00 Test Item Value Reference Range Interpretation Comments Monocytes # (test code 1.0 See_Comment [Aut omated message] The = Monocytes #) system which generated this result tra nsmitted reference range : <=0.8. The reference r annemarie was not used to int erpret this result as normal/abnormal . [facility] HospitalRxcgxdsOQUGIBVIVI5762-54-57 03:21:00 Test Item Value Reference Range Interpretation Comments Eosinophils # (test code 0.2 See_Comment [A utomated message] The = Eosinophils #) system whic h generated this result tra nsmitted reference range : <=0.5. The reference r annemarie was not used to int erpret this result as normal/abnormal . [facility] HospitalUdhhsdiCJDQVVTKVK2953-49-43 03:21:00 Test Item Value Reference Range Interpretation Comments Segs (test code = Segs) 64.7 45.0-75.0 [facility]2017-01-01 03:21:00 Test Item Value Reference Range Interpretation Comments Total CK (test code = Total CK) 3725 12-191 [facility] HospitalPackpkoNOQVDIJHPMMZ3121-41-19 03:21:00 Test Item Value Reference Range Interpretation Comments AGAP (test code = AGAP) 14.1 10.0-20.0 [facility] HospitalSdcvucyWWVGPWSOLAVL5506-35-55 03:21:00 Test Item Value Reference Range Interpretation Comments B/C Ratio (test code = B/C Ratio) 11 6-25 [facility] HospitalEvhtkhuOLJUYAZLJRFL7695-96-14 03:21:00 Test Item Value Reference Range Interpretation Comments Globulin (test code = Globulin) 3.2 2.7-4.2 [facility] HospitalGjphiawFXCSFALZFPWR9838-02-58 03:21:00 Test Item Value Reference Range Interpretation Comments A/G Ratio (test code = A/G Ratio) 1.3 0.7-1.6 [facility] HospitalSnzxngoCTNQFRBNKAKZ5154-34-13 03:21:00 Test Item Value Reference Range Interpretation Comments Bili Total (test code = Bili Total) 0.4 0.2-1.3 [facility] HospitalCipiutoUCFGDGIKKVCC9418-16-95 03:21:00 Test Item Value Reference Range Interpretation Comments eGFR (test code = eGFR) 102 [facility] HospitalCmmtdnoLBOWIGHMVFJG6712-85-31 03:21:00 Test Item Value Reference Range Interpretation Comments Albumin Lvl (test code = Albumin Lvl) 4.2 3.5-5.0 [facility] HospitalIyrhdloFPFQXIZNLDVN7718-94-47 03:21:00 Test Item Value Reference Range Interpretation Comments Alk Phos (test code = Alk Phos) 48 39-136 [facility] HospitalGujgmzsAOUFXCNXUNCY4636-91-89 03:21:00 Test Item Value Reference Range Interpretation Comments AST (test code = AST) 144 See_Comment [Auto mated message] The system which ge nerated this result transmit abdelrahman reference range : <=37. The reference range was not used to interpr et this result as gurpreet l/abnormal. [facility] HospitalKcqobemRXNQUPRYMMNJ6374-16-99 03:21:00 Test Item Value Reference Range Interpretation Comments Glucose Lvl (test code = Glucose Lvl) 75 70-99 [facility] HospitalWhqlxogMHLDULFSFILT5689-29-71 03:21:00 Test Item Value Reference Range Interpretation Comments BUN (test code = BUN) 11 7-22 [facility] HospitalMaamsleOFZPYAZMTGRB9930-77-72 03:21:00 Test Item Value Reference Range Interpretation Comments Potassium Lvl (test code = Potassium 4.1 3.5-5.1 Lvl) [facility] HospitalIjzoppsBEKGJFHKIMEN8957-13-42 03:21:00 Test Item Value Reference Range Interpretation Comments Creatinine Lvl (test code = Creatinine 1.00 0.50-1.40 Lvl) [facility] HospitalTbnaxuwVCXLXYUQCEUB4325-94-09 03:21:00 Test Item Value Reference Range Interpretation Comments Sodium Lvl (test code = Sodium Lvl) 140 135-145 [facility] HospitalOnrcqszDYPAPZVRGQZB4893-29-91 03:21:00 Test Item Value Reference Range Interpretation Comments Chloride Lvl (test code = Chloride Lvl) 106 95-109 [facility] HospitalRkuazttMBACIZDEWYEE0162-79-74 03:21:00 Test Item Value Reference Range Interpretation Comments CO2 (test code = CO2) 24 24-32 [facility] HospitalDbjfisrZZGJJEEIRSVA8937-34-04 03:21:00 Test Item Value Reference Range Interpretation Comments Total Protein (test code = Total 7.4 6.4-8.4 Protein) [facility] HospitalDeaeuvpVQFXUMBUFXZU2373-26-34 03:21:00 Test Item Value Reference Range Interpretation Comments Calcium Lvl (test code = Calcium Lvl) 9.1 8.5-10.5 [facility] HospitalMhouxidNVKOOZHOXHGU9458-33-73 03:21:00 Test Item Value Reference Range Interpretation Comments ALT (test code = ALT) 52 See_Comment [Auto mated message] The system which ge nerated this result transmit abdelrahman reference range : <=65. The reference range was not used to interpr et this result as gurpreet l/abnormal. [facility] HospitalVkvfrenUTOXFNAIQQ1433-86-75 03:21:00 Test Item Value Reference Range Interpretation Comments MCV (test code = MCV) 86.0 80.0-94.0 [facility] HospitalDgqszujMGLCYDUNZL4692-06-70 03:21:00 Test Item Value Reference Range Interpretation Comments MCH (test code = MCH) 29.7 pg 27.0-31.0 [facility] HospitalBkpaljgONCZDBZNYQ1678-26-52 03:21:00 Test Item Value Reference Range Interpretation Comments Hct (test code = Hct) 41.0 42.0-54.0 [facility] HospitalTrjbvvgNICKDWMJIA8850-48-79 03:21:00 Test Item Value Reference Range Interpretation Comments RBC (test code = RBC) 4.77 4.70-6.10 [facility] HospitalVlticxrSBEIAQVKNM3587-36-15 03:21:00 Test Item Value Reference Range Interpretation Comments WBC (test code = WBC) 8.8 3.7-10.4 [facility] HospitalZujdwprLFKXXZBVRF9157-02-40 03:21:00 Test Item Value Reference Range Interpretation Comments Hgb (test code = Hgb) 14.2 14.0-18.0 [facility] HospitalMreqarlEFZVLDELBD8780-54-13 03:21:00 Test Item Value Reference Range Interpretation Comments Platelet (test code = Platelet) 141 133-450 [facility] HospitalJoucxsvAAFHGHXPKX0249-78-32 03:21:00 Test Item Value Reference Range Interpretation Comments MCHC (test code = MCHC) 34.5 32.0-36.0 [facility] HospitalSgiqmicRTKYYSDOAH9267-87-59 03:21:00 Test Item Value Reference Range Interpretation Comments RDW (test code = RDW) 13.5 11.5-14.5 [facility] HospitalBstlhdzFZGKYELCLA3713-12-78 03:21:00 Test Item Value Reference Range Interpretation Comments MPV (test code = MPV) 8.9 7.4-10.4 [facility] HospitalOmmclefGYTFPITTCA5843-21-88 03:21:00 Test Item Value Reference Range Interpretation Comments Lymphocytes (test code = Lymphocytes) 21.1 20.0-40.0 [facility] HospitalPznkoccIGJZXVFAFP8677-19-11 03:21:00 Test Item Value Reference Range Interpretation Comments Monocytes (test code = Monocytes) 11.7 2.0-12.0 [facility] HospitalOwvgiffZATRENUSXU6227-10-14 03:21:00 Test Item Value Reference Range Interpretation Comments Lymphocytes # (test code = Lymphocytes 1.8 1.0-5.5 #) [facility] HospitalJvyxbdvNSEJZOHRQH9492-34-31 03:21:00 Test Item Value Reference Range Interpretation Comments Segs-Bands # (test code = Segs-Bands #) 5.7 1.5-8.1 [facility] HospitalPuargfsBOHJKDVSQV4407-74-95 03:21:00 Test Item Value Reference Range Interpretation Comments Eosinophils (test code = 1.7 See_Comment [A utomated message] The Eosinophils) system which ge nerated this result tra nsmitted reference range : <=4.0. The reference r annemarie was not used to int erpret this result as normal/abnormal . [facility] HospitalNklofxcTBJNHPSYTF1754-94-91 03:21:00 Test Item Value Reference Range Interpretation Comments Basophils (test code = 0.8 See_Comment [Aut omated message] The Basophils) system which ge nerated this result tra nsmitted reference range : <=1.0. The reference r annemarie was not used to int erpret this result as normal/abnormal . [facility] HospitalYfdhirvVTRHARBBMU5468-33-07 03:21:00 Test Item Value Reference Range Interpretation Comments Basophils # (test code 0.1 See_Comment [Aut omated message] The = Basophils #) system which generated this result tra nsmitted reference range : <=0.2. The reference r annemarie was not used to int erpret this result as normal/abnormal . [facility] HospitalSvmjwxcJLJQFOREVZ6557-71-06 03:21:00 Test Item Value Reference Range Interpretation Comments Monocytes # (test code 1.0 See_Comment [Aut omated message] The = Monocytes #) system which generated this result tra nsmitted reference range : <=0.8. The reference r annemarie was not used to int erpret this result as normal/abnormal . [facility] HospitalAquqgmcNVLXOVOHTL4125-31-07 03:21:00 Test Item Value Reference Range Interpretation Comments Eosinophils # (test code 0.2 See_Comment [A utomated message] The = Eosinophils #) system whic h generated this result tra nsmitted reference range : <=0.5. The reference r annemarie was not used to int erpret this result as normal/abnormal . [facility] HospitalQnkcnqhKFLPJQACWZ8137-06-23 03:21:00 Test Item Value Reference Range Interpretation Comments Segs (test code = Segs) 64.7 45.0-75.0 [facility]2017-01-01 03:21:00 Test Item Value Reference Range Interpretation Comments Total CK (test code = Total CK) 3725 12-191 [facility] HospitalXhjbobfLDHYQOMDLJRT6509-39-69 03:21:00 Test Item Value Reference Range Interpretation Comments AGAP (test code = AGAP) 14.1 10.0-20.0 [facility] HospitalSbhodxrLNGYTGHONGWZ3965-88-18 03:21:00 Test Item Value Reference Range Interpretation Comments B/C Ratio (test code = B/C Ratio) 11 6-25 [facility] HospitalYerczaaVQIWMJKMASOR7015-25-56 03:21:00 Test Item Value Reference Range Interpretation Comments Globulin (test code = Globulin) 3.2 2.7-4.2 [facility] HospitalFobxnmvIYXRGYCQKMEV6322-79-31 03:21:00 Test Item Value Reference Range Interpretation Comments A/G Ratio (test code = A/G Ratio) 1.3 0.7-1.6 [facility] HospitalHbbrjilFLIJQAAYSAVR8994-78-57 03:21:00 Test Item Value Reference Range Interpretation Comments Bili Total (test code = Bili Total) 0.4 0.2-1.3 [facility] HospitalGxugbqnYZKMYXEBZCLD3510-23-04 03:21:00 Test Item Value Reference Range Interpretation Comments eGFR (test code = eGFR) 102 [facility] HospitalSpjyhjeNGBXGUDXQYMI1669-92-85 03:21:00 Test Item Value Reference Range Interpretation Comments Albumin Lvl (test code = Albumin Lvl) 4.2 3.5-5.0 [facility] HospitalHefgemcBRLDETBBVIEK1390-32-42 03:21:00 Test Item Value Reference Range Interpretation Comments Alk Phos (test code = Alk Phos) 48 39-136 [facility] HospitalOcbyyfcEYGCAEWQTTCX3475-20-87 03:21:00 Test Item Value Reference Range Interpretation Comments AST (test code = AST) 144 See_Comment [Auto mated message] The system which ge nerated this result transmit abdelrahman reference range : <=37. The reference range was not used to interpr et this result as gurpreet l/abnormal. [facility] HospitalBvxzwbaCAHRXNNXLLBT1830-08-28 03:21:00 Test Item Value Reference Range Interpretation Comments Glucose Lvl (test code = Glucose Lvl) 75 70-99 [facility] HospitalJjvdlhqYBOVTDEXIHYY7458-25-23 03:21:00 Test Item Value Reference Range Interpretation Comments BUN (test code = BUN) 11 7-22 [facility] HospitalMbkqyclCRWZKRXWTNIZ7671-27-07 03:21:00 Test Item Value Reference Range Interpretation Comments Potassium Lvl (test code = Potassium 4.1 3.5-5.1 Lvl) [facility] HospitalVelxmlrWBTQJJMLZVNG8407-13-91 03:21:00 Test Item Value Reference Range Interpretation Comments Creatinine Lvl (test code = Creatinine 1.00 0.50-1.40 Lvl) [facility] HospitalJzzndtjFGOZRYQEVJVI5635-35-74 03:21:00 Test Item Value Reference Range Interpretation Comments Sodium Lvl (test code = Sodium Lvl) 140 135-145 [facility] HospitalBxumnciWLOSZRDXIOMU2688-48-67 03:21:00 Test Item Value Reference Range Interpretation Comments Chloride Lvl (test code = Chloride Lvl) 106 95-109 [facility] HospitalFkgxxctXSLMSWYTRGCV7130-29-98 03:21:00 Test Item Value Reference Range Interpretation Comments CO2 (test code = CO2) 24 24-32 [facility] HospitalPiuuoyeMGSGGEFVKQDQ8467-74-94 03:21:00 Test Item Value Reference Range Interpretation Comments Total Protein (test code = Total 7.4 6.4-8.4 Protein) [facility] HospitalGanjmayJEEYZQWVIXNU5347-14-78 03:21:00 Test Item Value Reference Range Interpretation Comments Calcium Lvl (test code = Calcium Lvl) 9.1 8.5-10.5 [facility] HospitalXqawgzhDAQBPQWKQAOF6510-56-83 03:21:00 Test Item Value Reference Range Interpretation Comments ALT (test code = ALT) 52 See_Comment [Auto mated message] The system which ge nerated this result transmit abdelrahman reference range : <=65. The reference range was not used to interpr et this result as gurpreet l/abnormal. [facility] HospitalNjkllleMCDXRUKWYH7767-54-51 03:21:00 Test Item Value Reference Range Interpretation Comments MCV (test code = MCV) 86.0 80.0-94.0 [facility] HospitalWfoycyhXUAYYMYOYN1136-72-66 03:21:00 Test Item Value Reference Range Interpretation Comments MCH (test code = MCH) 29.7 pg 27.0-31.0 [facility] HospitalTyynnfkNZPWBCKJHI2670-16-75 03:21:00 Test Item Value Reference Range Interpretation Comments Hct (test code = Hct) 41.0 42.0-54.0 [facility] HospitalZvayaasQQNUCEVCDH8254-04-86 03:21:00 Test Item Value Reference Range Interpretation Comments RBC (test code = RBC) 4.77 4.70-6.10 [facility] HospitalOorsuxgNAZTTVVSTC7664-49-19 03:21:00 Test Item Value Reference Range Interpretation Comments WBC (test code = WBC) 8.8 3.7-10.4 [facility] HospitalQcbphkcMPYXIYCNQK4923-46-51 03:21:00 Test Item Value Reference Range Interpretation Comments Hgb (test code = Hgb) 14.2 14.0-18.0 [facility] HospitalXftakshMEZGNQQRNP2655-63-22 03:21:00 Test Item Value Reference Range Interpretation Comments Platelet (test code = Platelet) 141 133-450 [facility] HospitalJdlrnxdGPPUQZLRYS3965-88-29 03:21:00 Test Item Value Reference Range Interpretation Comments MCHC (test code = MCHC) 34.5 32.0-36.0 [facility] HospitalTdbinbaTBPHNTJOVV1377-97-18 03:21:00 Test Item Value Reference Range Interpretation Comments RDW (test code = RDW) 13.5 11.5-14.5 [facility] HospitalEpnurhqTNVHTQFMYD5685-65-80 03:21:00 Test Item Value Reference Range Interpretation Comments MPV (test code = MPV) 8.9 7.4-10.4 [facility] HospitalQixhxspJYHNPFXELC7142-14-94 03:21:00 Test Item Value Reference Range Interpretation Comments Lymphocytes (test code = Lymphocytes) 21.1 20.0-40.0 [facility] HospitalZwvwrvnFENYFKBLXT5533-02-05 03:21:00 Test Item Value Reference Range Interpretation Comments Monocytes (test code = Monocytes) 11.7 2.0-12.0 [facility] HospitalHahuwvbKKOTFKISRB4628-29-60 03:21:00 Test Item Value Reference Range Interpretation Comments Lymphocytes # (test code = Lymphocytes 1.8 1.0-5.5 #) [facility] HospitalQqpaeauCWKHZTEGYK7361-59-25 03:21:00 Test Item Value Reference Range Interpretation Comments Segs-Bands # (test code = Segs-Bands #) 5.7 1.5-8.1 [place] [address]-01-01 03:21:00 Test Item Value Reference Range Interpretation Comments Eosinophils (test code = 1.7 See_Comment [A utomated message] The Eosinophils) system which ge nerated this result tra nsmitted reference range : <=4.0. The reference r annemarie was not used to int erpret this result as normal/abnormal . [facility] HospitalRevoidhHYMJFUGCRZ7702-63-52 03:21:00 Test Item Value Reference Range Interpretation Comments Basophils (test code = 0.8 See_Comment [Aut omated message] The Basophils) system which ge nerated this result tra nsmitted reference range : <=1.0. The reference r annemarie was not used to int erpret this result as normal/abnormal . [facility] HospitalVcaogjzLNMCLWOFLL5254-90-90 03:21:00 Test Item Value Reference Range Interpretation Comments Basophils # (test code 0.1 See_Comment [Aut omated message] The = Basophils #) system which generated this result tra nsmitted reference range : <=0.2. The reference r annemarie was not used to int erpret this result as normal/abnormal . [facility] HospitalHbywlyxCDDIIBMPZJ8757-67-97 03:21:00 Test Item Value Reference Range Interpretation Comments Monocytes # (test code 1.0 See_Comment [Aut omated message] The = Monocytes #) system which generated this result tra nsmitted reference range : <=0.8. The reference r annemarie was not used to int erpret this result as normal/abnormal . [facility] HospitalTinhbdlGZMGSTMAEM8286-11-56 03:21:00 Test Item Value Reference Range Interpretation Comments Eosinophils # (test code 0.2 See_Comment [A utomated message] The = Eosinophils #) system whic h generated this result tra nsmitted reference range : <=0.5. The reference r annemarie was not used to int erpret this result as normal/abnormal . [facility] HospitalRtyizahRLVBXQJSRR3016-05-39 03:21:00 Test Item Value Reference Range Interpretation Comments Segs (test code = Segs) 64.7 45.0-75.0 [facility] QKDXABP6055-46-65 03:21:00 Test Item Value Reference Range Interpretation Comments Total CK (test code = Total CK) 3725 12-191 [facility] HospitalBqmnvhnYHRLQEUFIXBA0848-92-18 03:21:00 Test Item Value Reference Range Interpretation Comments AGAP (test code = AGAP) 14.1 10.0-20.0 [facility] HospitalVadsfpjDREOXSTGQVCG6186-54-10 03:21:00 Test Item Value Reference Range Interpretation Comments B/C Ratio (test code = B/C Ratio) 11 6-25 [facility] HospitalQifwvxhMNQCLYPNXCQE0991-96-28 03:21:00 Test Item Value Reference Range Interpretation Comments Globulin (test code = Globulin) 3.2 2.7-4.2 [facility] HospitalGmfdeomXPVRYDLCWTHM3419-33-90 03:21:00 Test Item Value Reference Range Interpretation Comments A/G Ratio (test code = A/G Ratio) 1.3 0.7-1.6 [facility] HospitalDavrmfcMNTWCDUHGQWX3913-98-68 03:21:00 Test Item Value Reference Range Interpretation Comments Bili Total (test code = Bili Total) 0.4 0.2-1.3 [facility] HospitalMxsametWPTFGZIXDCQT9110-58-47 03:21:00 Test Item Value Reference Range Interpretation Comments eGFR (test code = eGFR) 102 [facility] HospitalCtrstlyLLAHZCBZJDWC1272-07-17 03:21:00 Test Item Value Reference Range Interpretation Comments Albumin Lvl (test code = Albumin Lvl) 4.2 3.5-5.0 [facility] HospitalJschqboETHSEMMUSQYD6869-47-89 03:21:00 Test Item Value Reference Range Interpretation Comments Alk Phos (test code = Alk Phos) 48 39-136 [facility] HospitalHixmmfuEXNBMVJVDZTK6684-54-64 03:21:00 Test Item Value Reference Range Interpretation Comments AST (test code = AST) 144 See_Comment [Auto mated message] The system which ge nerated this result transmit abdelrahman reference range : <=37. The reference range was not used to interpr et this result as gurpreet l/abnormal. [facility] HospitalGahwrnwCWLQZGFWPTOQ3666-33-86 03:21:00 Test Item Value Reference Range Interpretation Comments Glucose Lvl (test code = Glucose Lvl) 75 70-99 [facility]PqqrkffMJNIHGHPUSGC8237-12-91 03:21:00 Test Item Value Reference Range Interpretation Comments BUN (test code = BUN) 11 7-22 [facility] HospitalWajwnjxQRLWIYJKPENK4089-08-01 03:21:00 Test Item Value Reference Range Interpretation Comments Potassium Lvl (test code = Potassium 4.1 3.5-5.1 Lvl) [facility] HospitalRlatssbWHOMGMSIUERL5827-19-03 03:21:00 Test Item Value Reference Range Interpretation Comments Creatinine Lvl (test code = Creatinine 1.00 0.50-1.40 Lvl) [facility] HospitalSgbasjvUEOZNWIFNIAE7599-17-00 03:21:00 Test Item Value Reference Range Interpretation Comments Sodium Lvl (test code = Sodium Lvl) 140 135-145 [facility] HospitalTldcoaaQHKESIVDEEKQ1514-40-91 03:21:00 Test Item Value Reference Range Interpretation Comments Chloride Lvl (test code = Chloride Lvl) 106 95-109 [facility] HospitalHlqjtpuHXRWWCWAJRCR6351-28-23 03:21:00 Test Item Value Reference Range Interpretation Comments CO2 (test code = CO2) 24 24-32 [facility] HospitalDbtbfjoTZEBGFJXBMBS1989-47-00 03:21:00 Test Item Value Reference Range Interpretation Comments Total Protein (test code = Total 7.4 6.4-8.4 Protein) [facility] HospitalLeifddnORPLCVLKREXH9989-73-03 03:21:00 Test Item Value Reference Range Interpretation Comments Calcium Lvl (test code = Calcium Lvl) 9.1 8.5-10.5 [facility] HospitalYuesftpFJYDDPBSNCVF6023-20-11 03:21:00 Test Item Value Reference Range Interpretation Comments ALT (test code = ALT) 52 See_Comment [Auto mated message] The system which ge nerated this result transmit abdelrahman reference range : <=65. The reference range was not used to interpr et this result as gurpreet l/abnormal. [facility] HospitalIzqneayDJFJLFGOEX7359-83-10 03:21:00 Test Item Value Reference Range Interpretation Comments MCV (test code = MCV) 86.0 80.0-94.0 [facility] HospitalIwisyueMAQPGRDIPU8827-39-79 03:21:00 Test Item Value Reference Range Interpretation Comments MCH (test code = MCH) 29.7 pg 27.0-31.0 [facility] HospitalFemdlnoLKZQQIQLDJ3482-02-75 03:21:00 Test Item Value Reference Range Interpretation Comments Hct (test code = Hct) 41.0 42.0-54.0 [facility] HospitalQfeiavmTVBANXBJMX4883-08-83 03:21:00 Test Item Value Reference Range Interpretation Comments RBC (test code = RBC) 4.77 4.70-6.10 [facility] HospitalSfziqwgJCEQMFEYML3554-37-45 03:21:00 Test Item Value Reference Range Interpretation Comments WBC (test code = WBC) 8.8 3.7-10.4 [facility] HospitalAwuvkwmFYDLLIBYCM9873-68-36 03:21:00 Test Item Value Reference Range Interpretation Comments Hgb (test code = Hgb) 14.2 14.0-18.0 [facility] HospitalWvykoffUWLPCVVSAN9116-87-43 03:21:00 Test Item Value Reference Range Interpretation Comments Platelet (test code = Platelet) 141 133-450 [facility] HospitalSslnltuRBKEFXDCPL4211-66-69 03:21:00 Test Item Value Reference Range Interpretation Comments MCHC (test code = MCHC) 34.5 32.0-36.0 [facility] HospitalAiihjeqSJSJAUFTOX1921-52-29 03:21:00 Test Item Value Reference Range Interpretation Comments RDW (test code = RDW) 13.5 11.5-14.5 [facility] HospitalScjulilJQVAMAPVDN4322-03-19 03:21:00 Test Item Value Reference Range Interpretation Comments MPV (test code = MPV) 8.9 7.4-10.4 [facility] HospitalLuzspncNFWVXZEXQE2512-77-78 03:21:00 Test Item Value Reference Range Interpretation Comments Lymphocytes (test code = Lymphocytes) 21.1 20.0-40.0 [facility] HospitalRecnjbdTSDSJFIIFG8177-60-81 03:21:00 Test Item Value Reference Range Interpretation Comments Monocytes (test code = Monocytes) 11.7 2.0-12.0 [facility] HospitalWksztejMRWRRSXWRQ7456-43-90 03:21:00 Test Item Value Reference Range Interpretation Comments Lymphocytes # (test code = Lymphocytes 1.8 1.0-5.5 #) [facility] HospitalFvkgnipADEAUBXTTE5651-67-41 03:21:00 Test Item Value Reference Range Interpretation Comments Segs-Bands # (test code = Segs-Bands #) 5.7 1.5-8.1 [facility] HospitalJlvgovvQFATZKLKAX1729-09-16 03:21:00 Test Item Value Reference Range Interpretation Comments Eosinophils (test code = 1.7 See_Comment [A utomated message] The Eosinophils) system which ge nerated this result tra nsmitted reference range : <=4.0. The reference r annemarie was not used to int erpret this result as normal/abnormal . [facility] HospitalFibiohxJSOFYFQNMU4097-44-50 03:21:00 Test Item Value Reference Range Interpretation Comments Basophils (test code = 0.8 See_Comment [Aut omated message] The Basophils) system which ge nerated this result tra nsmitted reference range : <=1.0. The reference r annemarie was not used to int erpret this result as normal/abnormal . [facility] HospitalUocuhphEIEJTAWOHQ4807-27-06 03:21:00 Test Item Value Reference Range Interpretation Comments Basophils # (test code 0.1 See_Comment [Aut omated message] The = Basophils #) system which generated this result tra nsmitted reference range : <=0.2. The reference r annemarie was not used to int erpret this result as normal/abnormal . [facility] HospitalJilzlrzNGMZJVAJWM9149-31-02 03:21:00 Test Item Value Reference Range Interpretation Comments Monocytes # (test code 1.0 See_Comment [Aut omated message] The = Monocytes #) system which generated this result tra nsmitted reference range : <=0.8. The reference r annemarie was not used to int erpret this result as normal/abnormal . [facility] HospitalAltxckcTSPLQCCGIG1071-63-30 03:21:00 Test Item Value Reference Range Interpretation Comments Eosinophils # (test code 0.2 See_Comment [A utomated message] The = Eosinophils #) system wh h generated this result tra nsmitted reference range : <=0.5. The reference r annemarie was not used to int erpret this result as normal/abnormal . [facility]qbbhmqUPQBPSQPOR7759-90-24 03:21:00 Test Item Value Reference Range Interpretation Comments Segs (test code = Segs) 64.7 45.0-75.0 [facility]ARD[facility] YUWIAXN0789-90-70 03:21:00 Test Item Value Reference Range Interpretation Comments Total CK (test code = Total CK) 3725 12-191 [facility] HospitalOjawebgSOCYQMGSPYHO3053-69-99 03:21:00 Test Item Value Reference Range Interpretation Comments AGAP (test code = AGAP) 14.1 10.0-20.0 [facility] HospitalJpudozqGVIPVCRZHCFM8280-55-13 03:21:00 Test Item Value Reference Range Interpretation Comments B/C Ratio (test code = B/C Ratio) 11 6-25 [facility] HospitalRlxlublSNPBGHCTOPZJ0964-38-02 03:21:00 Test Item Value Reference Range Interpretation Comments Globulin (test code = Globulin) 3.2 2.7-4.2 [facility] HospitalUctyjpoTPJXGBVFEQWQ4586-42-34 03:21:00 Test Item Value Reference Range Interpretation Comments A/G Ratio (test code = A/G Ratio) 1.3 0.7-1.6 [facility] HospitalQojczgqVIXIRXGBCUDS5782-06-37 03:21:00 Test Item Value Reference Range Interpretation Comments Bili Total (test code = Bili Total) 0.4 0.2-1.3 [facility] HospitalSnzippcQRXDCITRVFFT3707-72-52 03:21:00 Test Item Value Reference Range Interpretation Comments eGFR (test code = eGFR) 102 [facility] HospitalSalxrtoVHLGLWYCQFBJ7427-65-36 03:21:00 Test Item Value Reference Range Interpretation Comments Albumin Lvl (test code = Albumin Lvl) 4.2 3.5-5.0 [facility] HospitalOupijlnDEPJYHIUSRXR3754-02-42 03:21:00 Test Item Value Reference Range Interpretation Comments Alk Phos (test code = Alk Phos) 48 39-136 [facility] HospitalHbwvghrDJTRDRKIDLVU9417-76-27 03:21:00 Test Item Value Reference Range Interpretation Comments AST (test code = AST) 144 See_Comment [Auto mated message] The system which ge nerated this result transmit abdelrahman reference range : <=37. The reference range was not used to interpr et this result as gurpreet l/abnormal. [facility] HospitalDmylqrcGATTUPFLYNND8809-19-83 03:21:00 Test Item Value Reference Range Interpretation Comments Glucose Lvl (test code = Glucose Lvl) 75 70-99 [facility] HospitalVhuortoUYLWQUCLOQOP9274-95-45 03:21:00 Test Item Value Reference Range Interpretation Comments BUN (test code = BUN) 11 7-22 [facility] HospitalZglmqpwVTHFCSMRWYPC3416-50-19 03:21:00 Test Item Value Reference Range Interpretation Comments Potassium Lvl (test code = Potassium 4.1 3.5-5.1 Lvl) [facility] HospitalWmarvhaXFDTMLJSFOFE0513-27-70 03:21:00 Test Item Value Reference Range Interpretation Comments Creatinine Lvl (test code = Creatinine 1.00 0.50-1.40 Lvl) [facility] HospitalXhykfapMTJLBISRCKTD3089-51-00 03:21:00 Test Item Value Reference Range Interpretation Comments Sodium Lvl (test code = Sodium Lvl) 140 135-145 [facility] HospitalYopfzzjVOUPXZXMBPPL6368-75-05 03:21:00 Test Item Value Reference Range Interpretation Comments Chloride Lvl (test code = Chloride Lvl) 106 95-109 [facility] HospitalZwfkvzxVRKGHQUXXSGL5872-16-91 03:21:00 Test Item Value Reference Range Interpretation Comments CO2 (test code = CO2) 24 24-32 [facility] HospitalWluycssSZLJKRSUXLIL8146-16-38 03:21:00 Test Item Value Reference Range Interpretation Comments Total Protein (test code = Total 7.4 6.4-8.4 Protein) [facility] HospitalSwwxdfvJHRVRKIFFIBU8348-72-16 03:21:00 Test Item Value Reference Range Interpretation Comments Calcium Lvl (test code = Calcium Lvl) 9.1 8.5-10.5 [facility] HospitalSsvniunVIQFFCEXNGNB1090-77-37 03:21:00 Test Item Value Reference Range Interpretation Comments ALT (test code = ALT) 52 See_Comment [Auto mated message] The system which ge nerated this result transmit abdelrahman reference range : <=65. The reference range was not used to interpr et this result as gurpreet l/abnormal. [facility] HospitalJvgqfrpGMELFEZOQZ9613-98-98 03:21:00 Test Item Value Reference Range Interpretation Comments MCV (test code = MCV) 86.0 80.0-94.0 [facility] HospitalUytjcxfNRPDVLGDSC2777-72-20 03:21:00 Test Item Value Reference Range Interpretation Comments MCH (test code = MCH) 29.7 pg 27.0-31.0 [facility] HospitalZbxwsvxWAFGFLZDEP6187-14-27 03:21:00 Test Item Value Reference Range Interpretation Comments Hct (test code = Hct) 41.0 42.0-54.0 [facility] HospitalKuhgvlfUPSROJEFZZ5109-38-05 03:21:00 Test Item Value Reference Range Interpretation Comments RBC (test code = RBC) 4.77 4.70-6.10 [facility] HospitalQvccaunMJPCBITLVJ6466-60-91 03:21:00 Test Item Value Reference Range Interpretation Comments WBC (test code = WBC) 8.8 3.7-10.4 [facility] HospitalAxvjdvqYKEGTTHCPO6305-76-53 03:21:00 Test Item Value Reference Range Interpretation Comments Hgb (test code = Hgb) 14.2 14.0-18.0 [facility] HospitalModscacORLPCLOLJW8066-94-58 03:21:00 Test Item Value Reference Range Interpretation Comments Platelet (test code = Platelet) 141 133-450 [facility] HospitalJnkfxauHTESRULJSR4858-77-73 03:21:00 Test Item Value Reference Range Interpretation Comments MCHC (test code = MCHC) 34.5 32.0-36.0 [facility] HospitalXsyopjaKPLNBODGYQ4110-99-05 03:21:00 Test Item Value Reference Range Interpretation Comments RDW (test code = RDW) 13.5 11.5-14.5 [facility] HospitalWdgnnfdSGTQURHFPH1075-40-77 03:21:00 Test Item Value Reference Range Interpretation Comments MPV (test code = MPV) 8.9 7.4-10.4 [facility] HospitalJjpazchBLFRJJAIBX2416-60-82 03:21:00 Test Item Value Reference Range Interpretation Comments Lymphocytes (test code = Lymphocytes) 21.1 20.0-40.0 [facility] HospitalTpvsgeiUFXQZXDGWM2722-95-20 03:21:00 Test Item Value Reference Range Interpretation Comments Monocytes (test code = Monocytes) 11.7 2.0-12.0 [facility] HospitalYqgammeEMRWQFPQWF8404-28-35 03:21:00 Test Item Value Reference Range Interpretation Comments Lymphocytes # (test code = Lymphocytes 1.8 1.0-5.5 #) [facility] HospitalNqoteocNJOVAZVQRV9151-04-83 03:21:00 Test Item Value Reference Range Interpretation Comments Segs-Bands # (test code = Segs-Bands #) 5.7 1.5-8.1 [facility] HospitalFzbceftQHZWDXOMDO2243-34-35 03:21:00 Test Item Value Reference Range Interpretation Comments Eosinophils (test code = 1.7 See_Comment [A utomated message] The Eosinophils) system which ge nerated this result tra nsmitted reference range : <=4.0. The reference r annemarie was not used to int erpret this result as normal/abnormal . [facility] HospitalMcnnirmUUWJAMKQXN8356-86-66 03:21:00 Test Item Value Reference Range Interpretation Comments Basophils (test code = 0.8 See_Comment [Aut omated message] The Basophils) system which ge nerated this result tra nsmitted reference range : <=1.0. The reference r annemarie was not used to int erpret this result as normal/abnormal . [facility] HospitalWtldnrbEWZQZVTDZH1385-72-92 03:21:00 Test Item Value Reference Range Interpretation Comments Basophils # (test code 0.1 See_Comment [Aut omated message] The = Basophils #) system which generated this result tra nsmitted reference range : <=0.2. The reference r annemarie was not used to int erpret this result as normal/abnormal . [facility] HospitalAmktfkcENBVQUNPVO2940-79-70 03:21:00 Test Item Value Reference Range Interpretation Comments Monocytes # (test code 1.0 See_Comment [Aut omated message] The = Monocytes #) system which generated this result tra nsmitted reference range : <=0.8. The reference r annemarie was not used to int erpret this result as normal/abnormal . [facility] HospitalXanccstOEVKEMGSWW2902-03-80 03:21:00 Test Item Value Reference Range Interpretation Comments Eosinophils # (test code 0.2 See_Comment [A utomated message] The = Eosinophils #) system whic h generated this result tra nsmitted reference range : <=0.5. The reference r annemarie was not used to int erpret this result as normal/abnormal . [facility] HospitalSqtdxjfHIJJIRFUIN1118-34-09 03:21:00 Test Item Value Reference Range Interpretation Comments Segs (test code = Segs) 64.7 45.0-75.0 [facility] ALPENAQJUBBET7367-05-79 03:21:00 Test Item Value Reference Range Interpretation Comments Total CK (test code = Total CK) 3725 12-191 [facility] HospitalXjaenqbNUETZNCXGHWJ8964-77-33 03:21:00 Test Item Value Reference Range Interpretation Comments AGAP (test code = AGAP) 14.1 10.0-20.0 [facility] HospitalLnlvbchZZNPJWBEZQMI5259-22-87 03:21:00 Test Item Value Reference Range Interpretation Comments B/C Ratio (test code = B/C Ratio) 11 6-25 [facility] HospitalLfknrypGDMVFGTBIMKM3951-50-67 03:21:00 Test Item Value Reference Range Interpretation Comments Globulin (test code = Globulin) 3.2 2.7-4.2 [facility] HospitalMhvazfrJMWELCIVYVUX9788-42-97 03:21:00 Test Item Value Reference Range Interpretation Comments A/G Ratio (test code = A/G Ratio) 1.3 0.7-1.6 [facility] HospitalOcusbqbGSRZABMLYOCK4210-48-58 03:21:00 Test Item Value Reference Range Interpretation Comments Bili Total (test code = Bili Total) 0.4 0.2-1.3 [facility] HospitalXdvxyucQQNFKPJPLRZQ1166-35-54 03:21:00 Test Item Value Reference Range Interpretation Comments eGFR (test code = eGFR) 102 [facility] HospitalZhswgrkPBBRFTHTSGZV0051-61-40 03:21:00 Test Item Value Reference Range Interpretation Comments Albumin Lvl (test code = Albumin Lvl) 4.2 3.5-5.0 [facility] HospitalHscezpsKFBRMSNPHRGC8605-79-40 03:21:00 Test Item Value Reference Range Interpretation Comments Alk Phos (test code = Alk Phos) 48 39-136 [facility] HospitalWebxvzmIJCDLOBHWIGV8229-74-96 03:21:00 Test Item Value Reference Range Interpretation Comments AST (test code = AST) 144 See_Comment [Auto mated message] The system which ge nerated this result transmit abdelrahman reference range : <=37. The reference range was not used to interpr et this result as gurpreet l/abnormal. [facility] HospitalJvtussvAPTOQWMPMLJU8459-52-95 03:21:00 Test Item Value Reference Range Interpretation Comments Glucose Lvl (test code = Glucose Lvl) 75 70-99 [facility] HospitalAokgmipPRWPLZXOQKCT6056-34-05 03:21:00 Test Item Value Reference Range Interpretation Comments BUN (test code = BUN) 11 7-22 [facility] HospitalGvzjtefIVXIPFLUQCQH0441-49-93 03:21:00 Test Item Value Reference Range Interpretation Comments Potassium Lvl (test code = Potassium 4.1 3.5-5.1 Lvl) [facility] HospitalApndlkpTUIIXQJESGHB3085-28-39 03:21:00 Test Item Value Reference Range Interpretation Comments Creatinine Lvl (test code = Creatinine 1.00 0.50-1.40 Lvl) [facility] HospitalYqjmzvbVTSQDMJWWXWU2290-92-90 03:21:00 Test Item Value Reference Range Interpretation Comments Sodium Lvl (test code = Sodium Lvl) 140 135-145 [facility] HospitalMftrusiKVJLFVIOSNDF5211-56-00 03:21:00 Test Item Value Reference Range Interpretation Comments Chloride Lvl (test code = Chloride Lvl) 106 95-109 [facility] HospitalXcoeuezLGJHVVVCORRU3145-21-60 03:21:00 Test Item Value Reference Range Interpretation Comments CO2 (test code = CO2) 24 24-32 [facility] HospitalRujxmzpGHICRGMTYUGU8460-71-35 03:21:00 Test Item Value Reference Range Interpretation Comments Total Protein (test code = Total 7.4 6.4-8.4 Protein) [facility] HospitalVkdreuxZZTRVMYLCDQL3382-69-73 03:21:00 Test Item Value Reference Range Interpretation Comments Calcium Lvl (test code = Calcium Lvl) 9.1 8.5-10.5 [facility] HospitalIclhlwyAADIDDSBOEBS7586-28-83 03:21:00 Test Item Value Reference Range Interpretation Comments ALT (test code = ALT) 52 See_Comment [Auto mated message] The system which ge nerated this result transmit abdelrahman reference range : <=65. The reference range was not used to interpr et this result as gurpreet l/abnormal. [facility] HospitalEgzigelJNSENBBLGS4826-65-40 03:21:00 Test Item Value Reference Range Interpretation Comments MCV (test code = MCV) 86.0 80.0-94.0 [facility] HospitalTxvzirdZDLREOMEPV3255-78-21 03:21:00 Test Item Value Reference Range Interpretation Comments MCH (test code = MCH) 29.7 pg 27.0-31.0 [facility] HospitalAnfzoztJIPQCQJLJG2361-61-01 03:21:00 Test Item Value Reference Range Interpretation Comments Hct (test code = Hct) 41.0 42.0-54.0 [facility] HospitalBlxlmosHXBHVFIEDZ4454-97-87 03:21:00 Test Item Value Reference Range Interpretation Comments RBC (test code = RBC) 4.77 4.70-6.10 [facility] HospitalZndocytZYXEHRRRPA5784-80-71 03:21:00 Test Item Value Reference Range Interpretation Comments WBC (test code = WBC) 8.8 3.7-10.4 [facility] HospitalAfwovszXOKWAMSQBC0167-07-13 03:21:00 Test Item Value Reference Range Interpretation Comments Hgb (test code = Hgb) 14.2 14.0-18.0 [facility] HospitalFkcpdshACDKELTUNZ8159-98-24 03:21:00 Test Item Value Reference Range Interpretation Comments Platelet (test code = Platelet) 141 133-450 [facility] HospitalIwnzcdiDVXJUAXIZX9576-86-15 03:21:00 Test Item Value Reference Range Interpretation Comments MCHC (test code = MCHC) 34.5 32.0-36.0 [facility] HospitalIvwjqetMNIZEJDKEQ7089-64-00 03:21:00 Test Item Value Reference Range Interpretation Comments RDW (test code = RDW) 13.5 11.5-14.5 [facility] HospitalZzbdyliXRYHWTEQDF1584-25-43 03:21:00 Test Item Value Reference Range Interpretation Comments MPV (test code = MPV) 8.9 7.4-10.4 [facility] HospitalNfuclwwLERBLUTZYA6408-55-97 03:21:00 Test Item Value Reference Range Interpretation Comments Lymphocytes (test code = Lymphocytes) 21.1 20.0-40.0 [facility] HospitalGxztaooLOYEYBJFDB7903-43-17 03:21:00 Test Item Value Reference Range Interpretation Comments Monocytes (test code = Monocytes) 11.7 2.0-12.0 [facility] HospitalNubqqmrNIOUCCUFJH2464-92-39 03:21:00 Test Item Value Reference Range Interpretation Comments Lymphocytes # (test code = Lymphocytes 1.8 1.0-5.5 #) [facility] HospitalIdpkwqyDMOYZERHXP1780-46-04 03:21:00 Test Item Value Reference Range Interpretation Comments Segs-Bands # (test code = Segs-Bands #) 5.7 1.5-8.1 [facility] HospitalKjsnvzaTVQQSRUSYD0749-55-95 03:21:00 Test Item Value Reference Range Interpretation Comments Eosinophils (test code = 1.7 See_Comment [A utomated message] The Eosinophils) system which ge nerated this result tra nsmitted reference range : <=4.0. The reference r annemarie was not used to int erpret this result as normal/abnormal . [facility] HospitalWxvuzrrOZKNWDWZNH5997-95-61 03:21:00 Test Item Value Reference Range Interpretation Comments Basophils (test code = 0.8 See_Comment [Aut omated message] The Basophils) system which ge nerated this result tra nsmitted reference range : <=1.0. The reference r annemarie was not used to int erpret this result as normal/abnormal . [facility] HospitalXgqfbqaMPROOUCQDV7310-72-15 03:21:00 Test Item Value Reference Range Interpretation Comments Basophils # (test code 0.1 See_Comment [Aut omated message] The = Basophils #) system which generated this result tra nsmitted reference range : <=0.2. The reference r annemarie was not used to int erpret this result as normal/abnormal . [facility] HospitalLsudrjlUFTJTDTKDQ1937-04-24 03:21:00 Test Item Value Reference Range Interpretation Comments Monocytes # (test code 1.0 See_Comment [Aut omated message] The = Monocytes #) system which generated this result tra nsmitted reference range : <=0.8. The reference r annemarie was not used to int erpret this result as normal/abnormal . [facility] HospitalAbixmufLILMANLJDM1929-77-69 03:21:00 Test Item Value Reference Range Interpretation Comments Eosinophils # (test code 0.2 See_Comment [A utomated message] The = Eosinophils #) system whic h generated this result tra nsmitted reference range : <=0.5. The reference r annemarie was not used to int erpret this result as normal/abnormal . [facility]DzzpynvVNOZIRKLZK3711-22-81 03:21:00 Test Item Value Reference Range Interpretation Comments Segs (test code = Segs) 64.7 45.0-75.0 [facility] QRAFCTT5942-06-87 03:21:00 Test Item Value Reference Range Interpretation Comments Total CK (test code = Total CK) 3725 12-191 [facility]WavmcvdTRDWAQDJHOXK5561-99-01 03:21:00 Test Item Value Reference Range Interpretation Comments AGAP (test code = AGAP) 14.1 10.0-20.0 [facility]JhvvxmtBYGKOJNDLSNS2708-82-81 03:21:00 Test Item Value Reference Range Interpretation Comments B/C Ratio (test code = B/C Ratio) 11 6-25 [facility] HospitalZwplyxoYFTTSUQODQVD3724-71-97 03:21:00 Test Item Value Reference Range Interpretation Comments Globulin (test code = Globulin) 3.2 2.7-4.2 [facility] HospitalOtphgehFCVTCYULIAEB7238-15-34 03:21:00 Test Item Value Reference Range Interpretation Comments A/G Ratio (test code = A/G Ratio) 1.3 0.7-1.6 [facility] HospitalWyzzqibFAJZNDHRVXMH1792-66-34 03:21:00 Test Item Value Reference Range Interpretation Comments Bili Total (test code = Bili Total) 0.4 0.2-1.3 [facility] HospitalYdtpowoBWHEMORKSAHZ9333-30-30 03:21:00 Test Item Value Reference Range Interpretation Comments eGFR (test code = eGFR) 102 [facility] HospitalSbaagdgEQUAUYKDCXWG3039-80-28 03:21:00 Test Item Value Reference Range Interpretation Comments Albumin Lvl (test code = Albumin Lvl) 4.2 3.5-5.0 [facility]XafzewaMNUYSXFNYTWK8013-19-68 03:21:00 Test Item Value Reference Range Interpretation Comments Alk Phos (test code = Alk Phos) 48 39-136 [facility] HospitalHvndogyVENVASPFOOHH9298-82-60 03:21:00 Test Item Value Reference Range Interpretation Comments AST (test code = AST) 144 See_Comment [Auto mated message] The system which ge nerated this result transmit abdelrahman reference range : <=37. The reference range was not used to interpr et this result as gurpreet l/abnormal. [facility] HospitalYvwblfsUBJUICXSOAXS1171-11-46 03:21:00 Test Item Value Reference Range Interpretation Comments Glucose Lvl (test code = Glucose Lvl) 75 70-99 [facility] HospitalRhnkpkoLYFVFCWSEHDS3340-44-84 03:21:00 Test Item Value Reference Range Interpretation Comments BUN (test code = BUN) 11 7- [facility] HospitalYthymfqWTUDTPQZJSWG0916-13-88 03:21:00 Test Item Value Reference Range Interpretation Comments Potassium Lvl (test code = Potassium 4.1 3.5-5.1 Lvl) [facility] HospitalLlbptjtDIEWGKKTLXGM7974-34-85 03:21:00 Test Item Value Reference Range Interpretation Comments Creatinine Lvl (test code = Creatinine 1.00 0.50-1.40 Lvl) [facility] HospitalCfmyppyMVFMCNRSEIOE2138-04-55 03:21:00 Test Item Value Reference Range Interpretation Comments Sodium Lvl (test code = Sodium Lvl) 140 135-145 [facility] HospitalCmtuzbpDWGSAREABXEH3819-12-79 03:21:00 Test Item Value Reference Range Interpretation Comments Chloride Lvl (test code = Chloride Lvl) 106 95-109 [facility] HospitalJlbnpptJVPZEGXACREY7955-33-60 03:21:00 Test Item Value Reference Range Interpretation Comments CO2 (test code = CO2) 24 24-32 [facility] HospitalWhghiskFHDQSDHLDYDG4903-46-34 03:21:00 Test Item Value Reference Range Interpretation Comments Total Protein (test code = Total 7.4 6.4-8.4 Protein) [facility] HospitalToroluuZNUDBZNVXQRP4338-73-56 03:21:00 Test Item Value Reference Range Interpretation Comments Calcium Lvl (test code = Calcium Lvl) 9.1 8.5-10.5 [facility] HospitalVtwikirJFUAEICJXKUE2788-51-94 03:21:00 Test Item Value Reference Range Interpretation Comments ALT (test code = ALT) 52 See_Comment [Auto mated message] The system which ge nerated this result transmit abdelrahman reference range : <=65. The reference range was not used to interpr et this result as gurpreet l/abnormal. [facility]XtdcptbBSXFOXBGXN5681-75-91 03:21:00 Test Item Value Reference Range Interpretation Comments MCV (test code = MCV) 86.0 80.0-94.0 [facility] HospitalVdsawptVUDEIFZHXY4768-04-56 03:21:00 Test Item Value Reference Range Interpretation Comments MCH (test code = MCH) 29.7 pg 27.0-31.0 [facility] HospitalGnfsxlfRPGLLRPRDX4917-15-79 03:21:00 Test Item Value Reference Range Interpretation Comments Hct (test code = Hct) 41.0 42.0-54.0 [facility] HospitalGqifxagFAUZATYMWW6745-73-67 03:21:00 Test Item Value Reference Range Interpretation Comments RBC (test code = RBC) 4.77 4.70-6.10 [facility] HospitalKtbvfhxYKXWEQDZDL5895-52-60 03:21:00 Test Item Value Reference Range Interpretation Comments WBC (test code = WBC) 8.8 3.7-10.4 [facility] HospitalRxojfgsJQQWFZLNHV1119-63-32 03:21:00 Test Item Value Reference Range Interpretation Comments Hgb (test code = Hgb) 14.2 14.0-18.0 [facility] HospitalSxkfwyrBSFBUGEUAL0419-69-20 03:21:00 Test Item Value Reference Range Interpretation Comments Platelet (test code = Platelet) 141 133-450 [facility] HospitalGbfgwltPPXUEZHNHL3182-69-83 03:21:00 Test Item Value Reference Range Interpretation Comments MCHC (test code = MCHC) 34.5 32.0-36.0 [facility] HospitalTtkukpzTHUOMGMFTR2320-08-72 03:21:00 Test Item Value Reference Range Interpretation Comments RDW (test code = RDW) 13.5 11.5-14.5 [facility] HospitalMownvalHYBZFHYURR7321-97-21 03:21:00 Test Item Value Reference Range Interpretation Comments MPV (test code = MPV) 8.9 7.4-10.4 [facility] HospitalSibgpkyVCBNXCKYXA2684-41-85 03:21:00 Test Item Value Reference Range Interpretation Comments Lymphocytes (test code = Lymphocytes) 21.1 20.0-40.0 [facility] HospitalUkuxowpRKJKVJMHJK6434-99-59 03:21:00 Test Item Value Reference Range Interpretation Comments Monocytes (test code = Monocytes) 11.7 2.0-12.0 [facility] HospitalIormbvdJFQUXDJUFQ6047-83-36 03:21:00 Test Item Value Reference Range Interpretation Comments Lymphocytes # (test code = Lymphocytes 1.8 1.0-5.5 #) [facility] HospitalHzeuqusNSJIXPSDAO2644-56-88 03:21:00 Test Item Value Reference Range Interpretation Comments Segs-Bands # (test code = Segs-Bands #) 5.7 1.5-8.1 [facility] HospitalSzjgfdnCEJXZPJFDU5651-70-73 03:21:00 Test Item Value Reference Range Interpretation Comments Eosinophils (test code = 1.7 See_Comment [A utomated message] The Eosinophils) system which ge nerated this result tra nsmitted reference range : <=4.0. The reference r annemarie was not used to int erpret this result as normal/abnormal . [facility] HospitalNsfogjcJTGYZXIHXT0255-73-91 03:21:00 Test Item Value Reference Range Interpretation Comments Basophils (test code = 0.8 See_Comment [Aut omated message] The Basophils) system which ge nerated this result tra nsmitted reference range : <=1.0. The reference r annemarie was not used to int erpret this result as normal/abnormal . [facility] HospitalWagpoicNXMUQJEWJX1876-18-64 03:21:00 Test Item Value Reference Range Interpretation Comments Basophils # (test code 0.1 See_Comment [Aut omated message] The = Basophils #) system which generated this result tra nsmitted reference range : <=0.2. The reference r annemarie was not used to int erpret this result as normal/abnormal . [facility] HospitalNajdnemPRHYLIKPXF2261-44-50 03:21:00 Test Item Value Reference Range Interpretation Comments Monocytes # (test code 1.0 See_Comment [Aut omated message] The = Monocytes #) system which generated this result tra nsmitted reference range : <=0.8. The reference r annemarie was not used to int erpret this result as normal/abnormal . [facility] HospitalMnexuhrBHRAKJSNLE5259-54-24 03:21:00 Test Item Value Reference Range Interpretation Comments Eosinophils # (test code 0.2 See_Comment [A utomated message] The = Eosinophils #) system whic h generated this result tra nsmitted reference range : <=0.5. The reference r annemarie was not used to int erpret this result as normal/abnormal . [facility] HospitalPbffdckHNMXTEECUL0951-05-45 03:21:00 Test Item Value Reference Range Interpretation Comments Segs (test code = Segs) 64.7 45.0-75.0 [facility]2017-01-01 03:21:00 Test Item Value Reference Range Interpretation Comments Total CK (test code = Total CK) 3725 12-191 [facility] HospitalOraxtfoRXAOALYWKLEB6982-20-65 03:21:00 Test Item Value Reference Range Interpretation Comments AGAP (test code = AGAP) 14.1 10.0-20.0 [facility] HospitalTuivwroOAGTFIGCMAKJ4993-16-99 03:21:00 Test Item Value Reference Range Interpretation Comments B/C Ratio (test code = B/C Ratio) 11 6-25 [facility] HospitalGeussceUJVKXYRHNKGA3298-72-48 03:21:00 Test Item Value Reference Range Interpretation Comments Globulin (test code = Globulin) 3.2 2.7-4.2 [facility] HospitalAfbipgrHUYPIHLLDSKP8143-98-58 03:21:00 Test Item Value Reference Range Interpretation Comments A/G Ratio (test code = A/G Ratio) 1.3 0.7-1.6 [facility] HospitalOrbwwnaYKFNTSUSBQMD3398-40-09 03:21:00 Test Item Value Reference Range Interpretation Comments Bili Total (test code = Bili Total) 0.4 0.2-1.3 [facility] HospitalVlffgzyEDLMESFQWJVD8434-13-62 03:21:00 Test Item Value Reference Range Interpretation Comments eGFR (test code = eGFR) 102 [facility] HospitalYeigtyrPNLMERODJROB1586-61-97 03:21:00 Test Item Value Reference Range Interpretation Comments Albumin Lvl (test code = Albumin Lvl) 4.2 3.5-5.0 [facility] HospitalJztpmhqXIUIBKEDYJVP4646-16-84 03:21:00 Test Item Value Reference Range Interpretation Comments Alk Phos (test code = Alk Phos) 48 39-136 [facility] HospitalCvohwdmLBRXGFDXIYSQ9551-05-70 03:21:00 Test Item Value Reference Range Interpretation Comments AST (test code = AST) 144 See_Comment [Auto mated message] The system which ge nerated this result transmit abdelrahman reference range : <=37. The reference range was not used to interpr et this result as gurpreet l/abnormal. [facility] HospitalYxmlwxrFYWDUOOEHARO2182-41-50 03:21:00 Test Item Value Reference Range Interpretation Comments Glucose Lvl (test code = Glucose Lvl) 75 70-99 [facility] HospitalXkqnyyfETHNUFNKVFRE6927-10-52 03:21:00 Test Item Value Reference Range Interpretation Comments BUN (test code = BUN) 11 7-22 [facility] HospitalYmydfliXRZTGQWHCFOG4765-49-91 03:21:00 Test Item Value Reference Range Interpretation Comments Potassium Lvl (test code = Potassium 4.1 3.5-5.1 Lvl) [facility] HospitalTvvtxoeDYRYGNONILLS8146-94-31 03:21:00 Test Item Value Reference Range Interpretation Comments Creatinine Lvl (test code = Creatinine 1.00 0.50-1.40 Lvl) [facility] HospitalKjdxmedJQWBVXTJYCZB7600-38-71 03:21:00 Test Item Value Reference Range Interpretation Comments Sodium Lvl (test code = Sodium Lvl) 140 135-145 [facility] HospitalRdafswoVSLKEQOZQYOQ8255-22-91 03:21:00 Test Item Value Reference Range Interpretation Comments Chloride Lvl (test code = Chloride Lvl) 106 95-109 [facility] HospitalYloqnmiXJKSZGUGJBLK6015-33-44 03:21:00 Test Item Value Reference Range Interpretation Comments CO2 (test code = CO2) 24 24-32 [facility] HospitalFcugoevGTTQWLXUYTIX4629-11-85 03:21:00 Test Item Value Reference Range Interpretation Comments Total Protein (test code = Total 7.4 6.4-8.4 Protein) [facility] HospitalLohlhinZMDODYPKCHHF2535-31-32 03:21:00 Test Item Value Reference Range Interpretation Comments Calcium Lvl (test code = Calcium Lvl) 9.1 8.5-10.5 [facility] HospitalUgurzyjQVKBNGAJTJEJ6849-02-21 03:21:00 Test Item Value Reference Range Interpretation Comments ALT (test code = ALT) 52 See_Comment [Auto mated message] The system which ge nerated this result transmit abdelrahman reference range : <=65. The reference range was not used to interpr et this result as gurpreet l/abnormal. [facility] HospitalHoulwtjFYDNOVDGYQ6690-28-09 03:21:00 Test Item Value Reference Range Interpretation Comments MCV (test code = MCV) 86.0 80.0-94.0 [facility] HospitalXnvcsiuUGGUTTHJUU2998-43-99 03:21:00 Test Item Value Reference Range Interpretation Comments MCH (test code = MCH) 29.7 pg 27.0-31.0 [facility] HospitalQhopdcwXTUXCUMBEL1776-45-52 03:21:00 Test Item Value Reference Range Interpretation Comments Hct (test code = Hct) 41.0 42.0-54.0 [facility] HospitalXkqjjwyPLOPTYMNES3043-85-63 03:21:00 Test Item Value Reference Range Interpretation Comments RBC (test code = RBC) 4.77 4.70-6.10 [facility] HospitalLvtlgdmDIMBAFJGLH5998-29-27 03:21:00 Test Item Value Reference Range Interpretation Comments WBC (test code = WBC) 8.8 3.7-10.4 [facility] HospitalUprmcafDJILOEEAZT2027-95-29 03:21:00 Test Item Value Reference Range Interpretation Comments Hgb (test code = Hgb) 14.2 14.0-18.0 [facility] HospitalLqocvefZFVETDKBAG9495-96-32 03:21:00 Test Item Value Reference Range Interpretation Comments Platelet (test code = Platelet) 141 133-450 [facility] HospitalRmbrwonBPTWSCAAWN5714-12-82 03:21:00 Test Item Value Reference Range Interpretation Comments MCHC (test code = MCHC) 34.5 32.0-36.0 [facility] HospitalRaflfrpKMBHUTIAYQ7130-47-75 03:21:00 Test Item Value Reference Range Interpretation Comments RDW (test code = RDW) 13.5 11.5-14.5 [facility] HospitalHjlwnojKRXCOUKVXC4432-57-04 03:21:00 Test Item Value Reference Range Interpretation Comments MPV (test code = MPV) 8.9 7.4-10.4 [facility] HospitalMdaovqoZMHKPKTJBB8451-03-41 03:21:00 Test Item Value Reference Range Interpretation Comments Lymphocytes (test code = Lymphocytes) 21.1 20.0-40.0 [facility] HospitalQrgtlvxLYCLBZOECJ9973-33-00 03:21:00 Test Item Value Reference Range Interpretation Comments Monocytes (test code = Monocytes) 11.7 2.0-12.0 [facility] HospitalUbtazgzZTNFWKSZOL8402-38-38 03:21:00 Test Item Value Reference Range Interpretation Comments Lymphocytes # (test code = Lymphocytes 1.8 1.0-5.5 #) [facility] HospitalFddkkqbJKQBRFLAIR9813-13-74 03:21:00 Test Item Value Reference Range Interpretation Comments Segs-Bands # (test code = Segs-Bands #) 5.7 1.5-8.1 [facility] HospitalBlylserXWYWFOCMTV5884-37-52 03:21:00 Test Item Value Reference Range Interpretation Comments Eosinophils (test code = 1.7 See_Comment [A utomated message] The Eosinophils) system which ge nerated this result tra nsmitted reference range : <=4.0. The reference r annemarie was not used to int erpret this result as normal/abnormal . [facility] HospitalEdwkjptMDYACDHMBS0888-29-26 03:21:00 Test Item Value Reference Range Interpretation Comments Basophils (test code = 0.8 See_Comment [Aut omated message] The Basophils) system which ge nerated this result tra nsmitted reference range : <=1.0. The reference r annemarie was not used to int erpret this result as normal/abnormal . [facility] HospitalJpcqvflUGQOWBVEOO4218-21-55 03:21:00 Test Item Value Reference Range Interpretation Comments Basophils # (test code 0.1 See_Comment [Aut omated message] The = Basophils #) system which generated this result tra nsmitted reference range : <=0.2. The reference r annemarie was not used to int erpret this result as normal/abnormal . [place] 356077-01-01 03:21:00 Test Item Value Reference Range Interpretation Comments Monocytes # (test code 1.0 See_Comment [Aut omated message] The = Monocytes #) system which generated this result tra nsmitted reference range : <=0.8. The reference r annemarie was not used to int erpret this result as normal/abnormal . [facility] HospitalKzqsbkkRSZAPUOEDB5405-22-67 03:21:00 Test Item Value Reference Range Interpretation Comments Eosinophils # (test code 0.2 See_Comment [A utomated message] The = Eosinophils #) system whic h generated this result tra nsmitted reference range : <=0.5. The reference r annemarie was not used to int erpret this result as normal/abnormal . [facility] HospitalVjkizggECKQEXTTMJ2951-86-99 03:21:00 Test Item Value Reference Range Interpretation Comments Segs (test code = Segs) 64.7 45.0-75.0 [facility]2017-01-01 03:21:00 Test Item Value Reference Range Interpretation Comments Total CK (test code = Total CK) 3725 12-191 [facility] HospitalIayrkwbNGWNEKXIVREQ0836-36-91 03:21:00 Test Item Value Reference Range Interpretation Comments AGAP (test code = AGAP) 14.1 10.0-20.0 [facility] HospitalRquxbgiYPTKHSDRCOYY3522-21-94 03:21:00 Test Item Value Reference Range Interpretation Comments B/C Ratio (test code = B/C Ratio) 11 6-25 [facility] HospitalTzrtjzjVSLIIMXUBADO0158-44-30 03:21:00 Test Item Value Reference Range Interpretation Comments Globulin (test code = Globulin) 3.2 2.7-4.2 [facility] HospitalUwsvybsLWPFKVNNGTPJ1683-75-87 03:21:00 Test Item Value Reference Range Interpretation Comments A/G Ratio (test code = A/G Ratio) 1.3 0.7-1.6 [facility] HospitalAkedqovOYPJZMOBQYZY7842-39-23 03:21:00 Test Item Value Reference Range Interpretation Comments Bili Total (test code = Bili Total) 0.4 0.2-1.3 [facility] HospitalDqpprmyNNTOAVOPJSET7419-39-12 03:21:00 Test Item Value Reference Range Interpretation Comments eGFR (test code = eGFR) 102 [facility] HospitalUmezbigFHAKGQIPYSXK7810-75-26 03:21:00 Test Item Value Reference Range Interpretation Comments Albumin Lvl (test code = Albumin Lvl) 4.2 3.5-5.0 [facility] HospitalPhdabrjWCKKEYFRFCGG2224-32-90 03:21:00 Test Item Value Reference Range Interpretation Comments Alk Phos (test code = Alk Phos) 48 39-136 [facility] HospitalEeuwuejJMTMZTLXNGBT8370-65-68 03:21:00 Test Item Value Reference Range Interpretation Comments AST (test code = AST) 144 See_Comment [Auto mated message] The system which ge nerated this result transmit abdelrahman reference range : <=37. The reference range was not used to interpr et this result as gurpreet l/abnormal. [facility] HospitalNvrvgdyQCXNDVIBPBXG3159-39-03 03:21:00 Test Item Value Reference Range Interpretation Comments Glucose Lvl (test code = Glucose Lvl) 75 70-99 [facility] HospitalLgmyrhyPFIYOKIQOIQJ2569-78-48 03:21:00 Test Item Value Reference Range Interpretation Comments BUN (test code = BUN) 11 7-22 [facility] HospitalPbocxbqJYPDNEOKRAXA1693-73-76 03:21:00 Test Item Value Reference Range Interpretation Comments Potassium Lvl (test code = Potassium 4.1 3.5-5.1 Lvl) [facility] HospitalFkgbnacYUZPUKOIYMKD9458-27-23 03:21:00 Test Item Value Reference Range Interpretation Comments Creatinine Lvl (test code = Creatinine 1.00 0.50-1.40 Lvl) [facility] HospitalXozcebzVFCLVDROMIVN4275-31-13 03:21:00 Test Item Value Reference Range Interpretation Comments Sodium Lvl (test code = Sodium Lvl) 140 135-145 [facility] HospitalOardhanLSHSGJKARUQJ1774-05-73 03:21:00 Test Item Value Reference Range Interpretation Comments Chloride Lvl (test code = Chloride Lvl) 106 95-109 [facility] HospitalFpkxnvnMIJCQNIGJJOZ4396-04-14 03:21:00 Test Item Value Reference Range Interpretation Comments CO2 (test code = CO2) 24 24-32 [facility] HospitalUtkvocqGBYZENQVPNOH6526-80-27 03:21:00 Test Item Value Reference Range Interpretation Comments Total Protein (test code = Total 7.4 6.4-8.4 Protein) [facility] HospitalSkszjuvJEYDVNXTKZFM4996-57-99 03:21:00 Test Item Value Reference Range Interpretation Comments Calcium Lvl (test code = Calcium Lvl) 9.1 8.5-10.5 [facility]BlyfrpvCNCRABJZDROM1517-38-08 03:21:00 Test Item Value Reference Range Interpretation Comments ALT (test code = ALT) 52 See_Comment [Auto mated message] The system which ge nerated this result transmit abdelrahman reference range : <=65. The reference range was not used to interpr et this result as gurpreet l/abnormal. [facility] HospitalRdvoogiREKEHRDWEW4889-09-93 03:21:00 Test Item Value Reference Range Interpretation Comments MCV (test code = MCV) 86.0 80.0-94.0 [facility] HospitalUitwaxxAERMKTMHZH6955-47-86 03:21:00 Test Item Value Reference Range Interpretation Comments MCH (test code = MCH) 29.7 pg 27.0-31.0 [facility] HospitalIpacoglVFQOGJOAAS5658-96-27 03:21:00 Test Item Value Reference Range Interpretation Comments Hct (test code = Hct) 41.0 42.0-54.0 [facility] HospitalUpxrztsXEKIMKBBZN2275-28-94 03:21:00 Test Item Value Reference Range Interpretation Comments RBC (test code = RBC) 4.77 4.70-6.10 [facility] HospitalGtvhjrwCMNSDECFQL7680-54-38 03:21:00 Test Item Value Reference Range Interpretation Comments WBC (test code = WBC) 8.8 3.7-10.4 [facility]SnesvniYAJAYVXINZ9150-20-92 03:21:00 Test Item Value Reference Range Interpretation Comments Hgb (test code = Hgb) 14.2 14.0-18.0 [facility] HospitalTnffoaxIQKFAYFHPR8272-47-79 03:21:00 Test Item Value Reference Range Interpretation Comments Platelet (test code = Platelet) 141 133-450 [facility] HospitalFxwbmleQZQJXBSRKE9731-17-45 03:21:00 Test Item Value Reference Range Interpretation Comments MCHC (test code = MCHC) 34.5 32.0-36.0 [facility] HospitalWflqhcxIRBFADVITV7942-70-26 03:21:00 Test Item Value Reference Range Interpretation Comments RDW (test code = RDW) 13.5 11.5-14.5 [facility] HospitalXmczlwvXKTWEEBIQW1435-72-31 03:21:00 Test Item Value Reference Range Interpretation Comments MPV (test code = MPV) 8.9 7.4-10.4 [facility] HospitalZlzqaboZLNEAJBRSD2019-98-55 03:21:00 Test Item Value Reference Range Interpretation Comments Lymphocytes (test code = Lymphocytes) 21.1 20.0-40.0 [facility] HospitalKffhuzjVJRTTKYCAK3399-74-13 03:21:00 Test Item Value Reference Range Interpretation Comments Monocytes (test code = Monocytes) 11.7 2.0-12.0 [facility] HospitalBvbhiskDBVAGBCEBG9643-03-15 03:21:00 Test Item Value Reference Range Interpretation Comments Lymphocytes # (test code = Lymphocytes 1.8 1.0-5.5 #) [facility] HospitalMalggtrQWUTSZWYSI6896-26-64 03:21:00 Test Item Value Reference Range Interpretation Comments Segs-Bands # (test code = Segs-Bands #) 5.7 1.5-8.1 [facility] HospitalDezmepzZRDBHFFBRX6933-65-21 03:21:00 Test Item Value Reference Range Interpretation Comments Eosinophils (test code = 1.7 See_Comment [A utomated message] The Eosinophils) system which ge nerated this result tra nsmitted reference range : <=4.0. The reference r annemarie was not used to int erpret this result as normal/abnormal . [facility] HospitalYizvntlNAJMRYZNGY7421-48-26 03:21:00 Test Item Value Reference Range Interpretation Comments Basophils (test code = 0.8 See_Comment [Aut omated message] The Basophils) system which ge nerated this result tra nsmitted reference range : <=1.0. The reference r annemarie was not used to int erpret this result as normal/abnormal . [facility] HospitalNteqnjzEOLTAWZBAF8337-17-28 03:21:00 Test Item Value Reference Range Interpretation Comments Basophils # (test code 0.1 See_Comment [Aut omated message] The = Basophils #) system which generated this result tra nsmitted reference range : <=0.2. The reference r annemarie was not used to int erpret this result as normal/abnormal . [facility] HospitalImtztxoKXNFKWRJUK1430-96-58 03:21:00 Test Item Value Reference Range Interpretation Comments Monocytes # (test code 1.0 See_Comment [Aut omated message] The = Monocytes #) system which generated this result tra nsmitted reference range : <=0.8. The reference r annemarie was not used to int erpret this result as normal/abnormal . [facility] HospitalYhdzzslYXQKPBWKNQ6494-80-24 03:21:00 Test Item Value Reference Range Interpretation Comments Eosinophils # (test code 0.2 See_Comment [A utomated message] The = Eosinophils #) system whic h generated this result tra nsmitted reference range : <=0.5. The reference r annemarie was not used to int erpret this result as normal/abnormal . [facility] HospitalAwlexdsPWTBCNJEKL3222-82-12 03:21:00 Test Item Value Reference Range Interpretation Comments Segs (test code = Segs) 64.7 45.0-75.0 [facility]CssrjyfCPWCDXTQCA3703-39-71 04:48:00 Test Item Value Reference Range Interpretation Comments Etoh (%) (test code = Etoh (%)) no [facility]VgjfxjsYPGTXNBBCQ3123-85-34 04:48:00 Test Item Value Reference Range Interpretation Comments Ethanol Lvl (test code = Ethanol Lvl) no [facility] CenterSbmaodrUCUONHCYSY9866-37-89 04:48:00 Test Item Value Reference Range Interpretation Comments Etoh (%) (test code = Etoh (%)) no [facility] CenterNilhpkjDEBKXSLRJQ5888-08-81 04:48:00 Test Item Value Reference Range Interpretation Comments Ethanol Lvl (test code = Ethanol Lvl) no [facility] CenterTcvhccySPLUGBVTSG7929-76-31 04:48:00 Test Item Value Reference Range Interpretation Comments Etoh (%) (test code = Etoh (%)) no [id number] 04:48:00 Test Item Value Reference Range Interpretation Comments Ethanol Lvl (test code = Ethanol Lvl) no [facility] Cent[id number] 04:48:00 Test Item Value Reference Range Interpretation Comments Etoh (%) (test code = Etoh (%)) no [facility] [id number] 04:48:00 Test Item Value Reference Range Interpretation Comments Ethanol Lvl (test code = Ethanol Lvl) no [facility] Cent[id number] 04:48:00 Test Item Value Reference Range Interpretation Comments Etoh (%) (test code = Etoh (%)) no [facility] CenterMxuiiniTWCXCZHJXQ2567-28-14 04:48:00 Test Item Value Reference Range Interpretation Comments Ethanol Lvl (test code = Ethanol Lvl) no gt [facility] [id number] 04:48:00 Test Item Value Reference Range Interpretation Comments Etoh (%) (test code = Etoh (%)) no gt [facility] IzuviulOODGNTPIPE1650-69-44 04:48:00 Test Item Value Reference Range Interpretation Comments Ethanol Lvl (test code = Ethanol Lvl) no gt [facility] [id number] 04:48:00 Test Item Value Reference Range Interpretation Comments Etoh (%) (test code = Etoh (%)) no gt [facility] MvkwhnkHUPJKYGQIS6338-01-29 04:48:00 Test Item Value Reference Range Interpretation Comments Ethanol Lvl (test code = Ethanol Lvl) no gt [facility] [id number] 04:48:00 Test Item Value Reference Range Interpretation Comments Etoh (%) (test code = Etoh (%)) no gt [facility] RdyklclJXIZELNOAR3400-16-07 04:48:00 Test Item Value Reference Range Interpretation Comments Ethanol Lvl (test code = Ethanol Lvl) no gt [facility] SyjnvogHWFVXREFQK1620-01-55 04:48:00 Test Item Value Reference Range Interpretation Comments Etoh (%) (test code = Etoh (%)) no [facility] [id number] 04:48:00 Test Item Value Reference Range Interpretation Comments Ethanol Lvl (test code = Ethanol Lvl) no [facility] MaiqlrsOGSQBFKHPC0650-09-13 04:48:00 Test Item Value Reference Range Interpretation Comments Etoh (%) (test code = Etoh (%)) no [facility] [id number] 04:48:00 Test Item Value Reference Range Interpretation Comments Ethanol Lvl (test code = Ethanol Lvl) no [facility] [id number] 02:43:00 Test Item Value Reference Range Interpretation Comments UDS Note (test code = See Note *NA*(04/06/16 UDS Note) 8:43 PM) [facility] [id number] 02:43:00 Test Item Value Reference Range Interpretation Comments U Opiate Scr (test Negative *NA*(04/06/16 code = U Opiate Scr) 8:43 PM) [facility] [id number] 02:43:00 Test Item Value Reference Range Interpretation Comments U Benzodia Scr (test Negative *NA*(04/06/16 code = U Benzodia Scr) 8:43 PM) [facility] [id number] 02:43:00 Test Item Value Reference Range Interpretation Comments U Cocaine Scr (test Negative *NA*(04/06/16 code = U Cocaine Scr) 8:43 PM) [facility] [id number] 02:43:00 Test Item Value Reference Range Interpretation Comments U Phencyc Scr (test Negative *NA*(04/06/16 code = U Phencyc Scr) 8:43 PM) [facility] [id number] 02:43:00 Test Item Value Reference Range Interpretation Comments U Odalys Scr (test code Negative *NA*(04/06/16 = U Odalys Scr) 8:43 PM) [facility] [id number] 02:43:00 Test Item Value Reference Range Interpretation Comments U Cannab Scr (test Negative *NA*(04/06/16 code = U Cannab Scr) 8:43 PM) [facility] [id number] 02:43:00 Test Item Value Reference Range Interpretation Comments U Amph Scr (test code Negative *NA*(04/06/16 = U Amph Scr) 8:43 PM) [facility] [id number] 02:43:00 Test Item Value Reference Range Interpretation Comments UA WBC (test code = UA WBC) 3-5 /HPF [facility] [id number] 02:43:00 Test Item Value Reference Range Interpretation Comments UA Sq Epi (test code = UA Sq Epi) Rare /LPF [facility] [id number] 02:43:00 Test Item Value Reference Range Interpretation Comments UA RBC (test code = 0-2 /HPF See_Comment [Automa abdelrahman message] The UA RBC) system which ge nerated this result tra nsmitted reference range : <=2. The reference range was not used to interpr et this result as gurpreet l/abnormal. [facility] [id number] 02:43:00 Test Item Value Reference Range Interpretation Comments UA Bacteria (test code = UA Occasional /HPF Bacteria) [facility] AND [id number] 02:43:00 Test Item Value Reference Range Interpretation Comments UA Mucus (test code = UA Mucus) Few /LPF [facility] AND [id number] 02:43:00 Test Item Value Reference Range Interpretation Comments UA Glucose (test code Negative (04/06/16 8:43 = UA Glucose) PM) [facility] AND [id number] 02:43:00 Test Item Value Reference Range Interpretation Comments UA Protein (test code Negative (04/06/16 8:43 = UA Protein) PM) [facility] AND [id number] 02:43:00 Test Item Value Reference Range Interpretation Comments UA pH (test code = UA pH) 5.5 1 5.0-8.0 [facility] AND [id number] 02:43:00 Test Item Value Reference Range Interpretation Comments UA Spec Grav (test code = UA Spec 1.025 1 Grav) [facility] AND [id number] 02:43:00 Test Item Value Reference Range Interpretation Comments UA Ketones (test code = UA >=80 mg/dL Ketones) [facility] AND [id number] 02:43:00 Test Item Value Reference Range Interpretation Comments UA Nitrite (test code Negative (04/06/16 8:43 = UA Nitrite) PM) [facility] AND [id number] 02:43:00 Test Item Value Reference Range Interpretation Comments UA Urobilinogen (test code = UA 0.2 0.1-1.0 Urobilinogen) [facility] AND [id number] 02:43:00 Test Item Value Reference Range Interpretation Comments UA Blood (test code = Negative (04/06/16 8:43 UA Blood) PM) [facility] AND [id number] 02:43:00 Test Item Value Reference Range Interpretation Comments UA Bili (test code = Small *ABN*(04/06/16 UA Bili) 8:43 PM) [facility] AND [id number] 02:43:00 Test Item Value Reference Range Interpretation Comments UA Leuk Est (test code Trace *ABN*(04/06/16 = UA Leuk Est) 8:43 PM) [facility] [id number] 02:43:00 Test Item Value Reference Range Interpretation Comments UA Turbidity (test code = Clear (04/06/16 8:43 UA Turbidity) PM) [facility] [id number] 02:43:00 Test Item Value Reference Range Interpretation Comments UA Color (test code = Yellow *NA*(04/06/16 UA Color) 8:43 PM) [facility] [id number] 02:43:00 Test Item Value Reference Range Interpretation Comments UDS Note (test code = See Note *NA*(04/06/16 UDS Note) 8:43 PM) [facility] [id number] 02:43:00 Test Item Value Reference Range Interpretation Comments U Opiate Scr (test Negative *NA*(04/06/16 code = U Opiate Scr) 8:43 PM) [facility] [id number] 02:43:00 Test Item Value Reference Range Interpretation Comments U Benzodia Scr (test Negative *NA*(04/06/16 code = U Benzodia Scr) 8:43 PM) [facility] [id number] 02:43:00 Test Item Value Reference Range Interpretation Comments U Cocaine Scr (test Negative *NA*(04/06/16 code = U Cocaine Scr) 8:43 PM) [facility] [id number] 02:43:00 Test Item Value Reference Range Interpretation Comments U Phencyc Scr (test Negative *NA*(04/06/16 code = U Phencyc Scr) 8:43 PM) [facility] [id number] 02:43:00 Test Item Value Reference Range Interpretation Comments U Odalys Scr (test code Negative *NA*(04/06/16 = U Odalys Scr) 8:43 PM) [facility] [id number] 02:43:00 Test Item Value Reference Range Interpretation Comments U Cannab Scr (test Negative *NA*(04/06/16 code = U Cannab Scr) 8:43 PM) [facility] [id number] 02:43:00 Test Item Value Reference Range Interpretation Comments U Amph Scr (test code Negative *NA*(04/06/16 = U Amph Scr) 8:43 PM) [facility] [id number] 02:43:00 Test Item Value Reference Range Interpretation Comments UA WBC (test code = UA WBC) 3-5 /HPF [facility] AND [id number] 02:43:00 Test Item Value Reference Range Interpretation Comments UA Sq Epi (test code = UA Sq Epi) Rare /LPF [facility] AND [id number] 02:43:00 Test Item Value Reference Range Interpretation Comments UA RBC (test code = 0-2 /HPF See_Comment [Automa abdelrahman message] The UA RBC) system which ge nerated this result tra nsmitted reference range : <=2. The reference range was not used to interpr et this result as gurpreet l/abnormal. [facility] AND [id number] 02:43:00 Test Item Value Reference Range Interpretation Comments UA Bacteria (test code = UA Occasional /HPF Bacteria) [facility] AND [id number] 02:43:00 Test Item Value Reference Range Interpretation Comments UA Mucus (test code = UA Mucus) Few /LPF [facility] AND [id number] 02:43:00 Test Item Value Reference Range Interpretation Comments UA Glucose (test code Negative (04/06/16 8:43 = UA Glucose) PM) [facility] AND [id number] 02:43:00 Test Item Value Reference Range Interpretation Comments UA Protein (test code Negative (04/06/16 8:43 = UA Protein) PM) [facility] AND [id number] 02:43:00 Test Item Value Reference Range Interpretation Comments UA pH (test code = UA pH) 5.5 1 5.0-8.0 [facility] AND [id number] 02:43:00 Test Item Value Reference Range Interpretation Comments UA Spec Grav (test code = UA Spec 1.025 1 Grav) [facility] AND [id number] 02:43:00 Test Item Value Reference Range Interpretation Comments UA Ketones (test code = UA >=80 mg/dL Ketones) [facility] AND [id number] 02:43:00 Test Item Value Reference Range Interpretation Comments UA Nitrite (test code Negative (04/06/16 8:43 = UA Nitrite) PM) [facility] [id number] 02:43:00 Test Item Value Reference Range Interpretation Comments UA Urobilinogen (test code = UA 0.2 0.1-1.0 Urobilinogen) [facility] [id number] 02:43:00 Test Item Value Reference Range Interpretation Comments UA Blood (test code = Negative (04/06/16 8:43 UA Blood) PM) [facility] [id number] 02:43:00 Test Item Value Reference Range Interpretation Comments UA Bili (test code = Small *ABN*(04/06/16 UA Bili) 8:43 PM) [facility] [id number] 02:43:00 Test Item Value Reference Range Interpretation Comments UA Leuk Est (test code Trace *ABN*(04/06/16 = UA Leuk Est) 8:43 PM) [facility] [id number] 02:43:00 Test Item Value Reference Range Interpretation Comments UA Turbidity (test code = Clear (04/06/16 8:43 UA Turbidity) PM) [facility] [id number] 02:43:00 Test Item Value Reference Range Interpretation Comments UA Color (test code = Yellow *NA*(04/06/16 UA Color) 8:43 PM) [facility] [id number] 02:43:00 Test Item Value Reference Range Interpretation Comments UDS Note (test code = See Note *NA*(04/06/16 UDS Note) 8:43 PM) [facility] [id number] 02:43:00 Test Item Value Reference Range Interpretation Comments U Opiate Scr (test Negative *NA*(04/06/16 code = U Opiate Scr) 8:43 PM) [facility] [id number] 02:43:00 Test Item Value Reference Range Interpretation Comments U Benzodia Scr (test Negative *NA*(04/06/16 code = U Benzodia Scr) 8:43 PM) [facility] [id number] 02:43:00 Test Item Value Reference Range Interpretation Comments U Cocaine Scr (test Negative *NA*(04/06/16 code = U Cocaine Scr) 8:43 PM) [facility] [id number] 02:43:00 Test Item Value Reference Range Interpretation Comments U Phencyc Scr (test Negative *NA*(04/06/16 code = U Phencyc Scr) 8:43 PM) [facility] [id number] 02:43:00 Test Item Value Reference Range Interpretation Comments U Odalys Scr (test code Negative *NA*(04/06/16 = U Odalys Scr) 8:43 PM) [facility] [id number] 02:43:00 Test Item Value Reference Range Interpretation Comments U Cannab Scr (test Negative *NA*(04/06/16 code = U Cannab Scr) 8:43 PM) [facility] [id number] 02:43:00 Test Item Value Reference Range Interpretation Comments U Amph Scr (test code Negative *NA*(04/06/16 = U Amph Scr) 8:43 PM) [facility] [id number] 02:43:00 Test Item Value Reference Range Interpretation Comments UA WBC (test code = UA WBC) 3-5 /HPF [facility] [id number] 02:43:00 Test Item Value Reference Range Interpretation Comments UA Sq Epi (test code = UA Sq Epi) Rare /LPF [facility] [id number] 02:43:00 Test Item Value Reference Range Interpretation Comments UA RBC (test code = 0-2 /HPF See_Comment [Automa abdelrahman message] The UA RBC) system which ge nerated this result tra nsmitted reference range : <=2. The reference range was not used to interpr et this result as gurpreet l/abnormal. [facility] [id number] 02:43:00 Test Item Value Reference Range Interpretation Comments UA Bacteria (test code = UA Occasional /HPF Bacteria) [facility] [id number] 02:43:00 Test Item Value Reference Range Interpretation Comments UA Mucus (test code = UA Mucus) Few /LPF [facility] [id number] 02:43:00 Test Item Value Reference Range Interpretation Comments UA Glucose (test code Negative (04/06/16 8:43 = UA Glucose) PM) [facility] [id number] 02:43:00 Test Item Value Reference Range Interpretation Comments UA Protein (test code Negative (04/06/16 8:43 = UA Protein) PM) [facility] [id number] 02:43:00 Test Item Value Reference Range Interpretation Comments UA pH (test code = UA pH) 5.5 1 5.0-8.0 [facility] [id number] 02:43:00 Test Item Value Reference Range Interpretation Comments UA Spec Grav (test code = UA Spec 1.025 1 Grav) [facility] [id number] 02:43:00 Test Item Value Reference Range Interpretation Comments UA Ketones (test code = UA >=80 mg/dL Ketones) [facility] [id number] 02:43:00 Test Item Value Reference Range Interpretation Comments UA Nitrite (test code Negative (04/06/16 8:43 = UA Nitrite) PM) [facility] [id number] 02:43:00 Test Item Value Reference Range Interpretation Comments UA Urobilinogen (test code = UA 0.2 0.1-1.0 Urobilinogen) [facility] [id number] 02:43:00 Test Item Value Reference Range Interpretation Comments UA Blood (test code = Negative (04/06/16 8:43 UA Blood) PM) [facility] [id number] 02:43:00 Test Item Value Reference Range Interpretation Comments UA Bili (test code = Small *ABN*(04/06/16 UA Bili) 8:43 PM) [facility] [id number] 02:43:00 Test Item Value Reference Range Interpretation Comments UA Leuk Est (test code Trace *ABN*(04/06/16 = UA Leuk Est) 8:43 PM) [facility] [id number] 02:43:00 Test Item Value Reference Range Interpretation Comments UA Turbidity (test code = Clear (04/06/16 8:43 UA Turbidity) PM) [facility] [id number] 02:43:00 Test Item Value Reference Range Interpretation Comments UA Color (test code = Yellow *NA*(04/06/16 UA Color) 8:43 PM) [facility] [id number] 02:43:00 Test Item Value Reference Range Interpretation Comments UDS Note (test code = See Note *NA*(04/06/16 UDS Note) 8:43 PM) [facility] [id number] 02:43:00 Test Item Value Reference Range Interpretation Comments U Opiate Scr (test Negative *NA*(04/06/16 code = U Opiate Scr) 8:43 PM) [facility] [id number] 02:43:00 Test Item Value Reference Range Interpretation Comments U Benzodia Scr (test Negative *NA*(04/06/16 code = U Benzodia Scr) 8:43 PM) [facility] [id number] 02:43:00 Test Item Value Reference Range Interpretation Comments U Cocaine Scr (test Negative *NA*(04/06/16 code = U Cocaine Scr) 8:43 PM) [facility] [id number] 02:43:00 Test Item Value Reference Range Interpretation Comments U Phencyc Scr (test Negative *NA*(04/06/16 code = U Phencyc Scr) 8:43 PM) [facility] [id number] 02:43:00 Test Item Value Reference Range Interpretation Comments U Odalys Scr (test code Negative *NA*(04/06/16 = U Odalys Scr) 8:43 PM) [facility] [id number] 02:43:00 Test Item Value Reference Range Interpretation Comments U Cannab Scr (test Negative *NA*(04/06/16 code = U Cannab Scr) 8:43 PM) [facility] [id number] 02:43:00 Test Item Value Reference Range Interpretation Comments U Amph Scr (test code Negative *NA*(04/06/16 = U Amph Scr) 8:43 PM) [facility] [id number] 02:43:00 Test Item Value Reference Range Interpretation Comments UA WBC (test code = UA WBC) 3-5 /HPF [facility] [id number] 02:43:00 Test Item Value Reference Range Interpretation Comments UA Sq Epi (test code = UA Sq Epi) Rare /LPF [facility] [id number] 02:43:00 Test Item Value Reference Range Interpretation Comments UA RBC (test code = 0-2 /HPF See_Comment [Automa abdelrahman message] The UA RBC) system which ge nerated this result tra nsmitted reference range : <=2. The reference range was not used to interpr et this result as gurpreet l/abnormal. [facility] AND [id number] 02:43:00 Test Item Value Reference Range Interpretation Comments UA Bacteria (test code = UA Occasional /HPF Bacteria) [facility] AND [id number] 02:43:00 Test Item Value Reference Range Interpretation Comments UA Mucus (test code = UA Mucus) Few /LPF [facility] AND [id number] 02:43:00 Test Item Value Reference Range Interpretation Comments UA Glucose (test code Negative (04/06/16 8:43 = UA Glucose) PM) [facility] AND [id number] 02:43:00 Test Item Value Reference Range Interpretation Comments UA Protein (test code Negative (04/06/16 8:43 = UA Protein) PM) [facility] AND [id number] 02:43:00 Test Item Value Reference Range Interpretation Comments UA pH (test code = UA pH) 5.5 1 5.0-8.0 [facility] AND [id number] 02:43:00 Test Item Value Reference Range Interpretation Comments UA Spec Grav (test code = UA Spec 1.025 1 Grav) [facility] AND [id number] 02:43:00 Test Item Value Reference Range Interpretation Comments UA Ketones (test code = UA >=80 mg/dL Ketones) [facility] AND [id number] 02:43:00 Test Item Value Reference Range Interpretation Comments UA Nitrite (test code Negative (04/06/16 8:43 = UA Nitrite) PM) [facility] AND [id number] 02:43:00 Test Item Value Reference Range Interpretation Comments UA Urobilinogen (test code = UA 0.2 0.1-1.0 Urobilinogen) [facility] AND [id number] 02:43:00 Test Item Value Reference Range Interpretation Comments UA Blood (test code = Negative (04/06/16 8:43 UA Blood) PM) [facility] AND [id number] 02:43:00 Test Item Value Reference Range Interpretation Comments UA Bili (test code = Small *ABN*(04/06/16 UA Bili) 8:43 PM) [facility] [id number] 02:43:00 Test Item Value Reference Range Interpretation Comments UA Leuk Est (test code Trace *ABN*(04/06/16 = UA Leuk Est) 8:43 PM) [facility] [id number] 02:43:00 Test Item Value Reference Range Interpretation Comments UA Turbidity (test code = Clear (04/06/16 8:43 UA Turbidity) PM) [facility] [id number] 02:43:00 Test Item Value Reference Range Interpretation Comments UA Color (test code = Yellow *NA*(04/06/16 UA Color) 8:43 PM) [facility] [id number] 02:43:00 Test Item Value Reference Range Interpretation Comments UDS Note (test code = See Note *NA*(04/06/16 UDS Note) 8:43 PM) [facility] [id number] 02:43:00 Test Item Value Reference Range Interpretation Comments U Opiate Scr (test Negative *NA*(04/06/16 code = U Opiate Scr) 8:43 PM) [facility] [id number] 02:43:00 Test Item Value Reference Range Interpretation Comments U Benzodia Scr (test Negative *NA*(04/06/16 code = U Benzodia Scr) 8:43 PM) [facility] [id number] 02:43:00 Test Item Value Reference Range Interpretation Comments U Cocaine Scr (test Negative *NA*(04/06/16 code = U Cocaine Scr) 8:43 PM) [facility] [id number] 02:43:00 Test Item Value Reference Range Interpretation Comments U Phencyc Scr (test Negative *NA*(04/06/16 code = U Phencyc Scr) 8:43 PM) [facility] [id number] 02:43:00 Test Item Value Reference Range Interpretation Comments U Odalys Scr (test code Negative *NA*(04/06/16 = U Odalys Scr) 8:43 PM) [facility] [id number] 02:43:00 Test Item Value Reference Range Interpretation Comments U Cannab Scr (test Negative *NA*(04/06/16 code = U Cannab Scr) 8:43 PM) [facility] [id number] 02:43:00 Test Item Value Reference Range Interpretation Comments U Amph Scr (test code Negative *NA*(04/06/16 = U Amph Scr) 8:43 PM) [facility] [id number] 02:43:00 Test Item Value Reference Range Interpretation Comments UA WBC (test code = UA WBC) 3-5 /HPF [facility] [id number] 02:43:00 Test Item Value Reference Range Interpretation Comments UA Sq Epi (test code = UA Sq Epi) Rare /LPF [facility] [id number] 02:43:00 Test Item Value Reference Range Interpretation Comments UA RBC (test code = 0-2 /HPF See_Comment [Automa abdelrahman message] The UA RBC) system which ge nerated this result tra nsmitted reference range : <=2. The reference range was not used to interpr et this result as gurpreet l/abnormal. [facility] [id number] 02:43:00 Test Item Value Reference Range Interpretation Comments UA Bacteria (test code = UA Occasional /HPF Bacteria) [facility] [id number] 02:43:00 Test Item Value Reference Range Interpretation Comments UA Mucus (test code = UA Mucus) Few /LPF [facility] [id number] 02:43:00 Test Item Value Reference Range Interpretation Comments UA Glucose (test code Negative (04/06/16 8:43 = UA Glucose) PM) [facility] [id number] 02:43:00 Test Item Value Reference Range Interpretation Comments UA Protein (test code Negative (04/06/16 8:43 = UA Protein) PM) [facility] [id number] 02:43:00 Test Item Value Reference Range Interpretation Comments UA pH (test code = UA pH) 5.5 1 5.0-8.0 [facility] [id number] 02:43:00 Test Item Value Reference Range Interpretation Comments UA Spec Grav (test code = UA Spec 1.025 1 Grav) [facility] [id number] 02:43:00 Test Item Value Reference Range Interpretation Comments UA Ketones (test code = UA >=80 mg/dL Ketones) [facility] [id number] 02:43:00 Test Item Value Reference Range Interpretation Comments UA Nitrite (test code Negative (04/06/16 8:43 = UA Nitrite) PM) [facility] [id number] 02:43:00 Test Item Value Reference Range Interpretation Comments UA Urobilinogen (test code = UA 0.2 0.1-1.0 Urobilinogen) [facility] [id number] 02:43:00 Test Item Value Reference Range Interpretation Comments UA Blood (test code = Negative (04/06/16 8:43 UA Blood) PM) [facility] [id number] 02:43:00 Test Item Value Reference Range Interpretation Comments UA Bili (test code = Small *ABN*(04/06/16 UA Bili) 8:43 PM) [facility] [id number] 02:43:00 Test Item Value Reference Range Interpretation Comments UA Leuk Est (test code Trace *ABN*(04/06/16 = UA Leuk Est) 8:43 PM) [facility] [id number] 02:43:00 Test Item Value Reference Range Interpretation Comments UA Turbidity (test code = Clear (04/06/16 8:43 UA Turbidity) PM) [facility] [id number] 02:43:00 Test Item Value Reference Range Interpretation Comments UA Color (test code = Yellow *NA*(04/06/16 UA Color) 8:43 PM) [facility] [id number] 02:43:00 Test Item Value Reference Range Interpretation Comments UDS Note (test code = See Note *NA*(04/06/16 UDS Note) 8:43 PM) [facility] [id number] 02:43:00 Test Item Value Reference Range Interpretation Comments U Opiate Scr (test Negative *NA*(04/06/16 code = U Opiate Scr) 8:43 PM) [facility] [id number] 02:43:00 Test Item Value Reference Range Interpretation Comments U Benzodia Scr (test Negative *NA*(04/06/16 code = U Benzodia Scr) 8:43 PM) [facility] [id number] 02:43:00 Test Item Value Reference Range Interpretation Comments U Cocaine Scr (test Negative *NA*(04/06/16 code = U Cocaine Scr) 8:43 PM) [facility] [id number] 02:43:00 Test Item Value Reference Range Interpretation Comments U Phencyc Scr (test Negative *NA*(04/06/16 code = U Phencyc Scr) 8:43 PM) [facility] [id number] 02:43:00 Test Item Value Reference Range Interpretation Comments U Odalys Scr (test code Negative *NA*(04/06/16 = U Odalys Scr) 8:43 PM) [facility] [id number] 02:43:00 Test Item Value Reference Range Interpretation Comments U Cannab Scr (test Negative *NA*(04/06/16 code = U Cannab Scr) 8:43 PM) [facility] [id number] 02:43:00 Test Item Value Reference Range Interpretation Comments U Amph Scr (test code Negative *NA*(04/06/16 = U Amph Scr) 8:43 PM) [facility] [id number] 02:43:00 Test Item Value Reference Range Interpretation Comments UA WBC (test code = UA WBC) 3-5 /HPF [facility] [id number] 02:43:00 Test Item Value Reference Range Interpretation Comments UA Sq Epi (test code = UA Sq Epi) Rare /LPF [facility] [id number] 02:43:00 Test Item Value Reference Range Interpretation Comments UA RBC (test code = 0-2 /HPF See_Comment [Automa abdelrahman message] The UA RBC) system which ge nerated this result tra nsmitted reference range : <=2. The reference range was not used to interpr et this result as gurpreet l/abnormal. [facility] [id number] 02:43:00 Test Item Value Reference Range Interpretation Comments UA Bacteria (test code = UA Occasional /HPF Bacteria) [facility] [id number] 02:43:00 Test Item Value Reference Range Interpretation Comments UA Mucus (test code = UA Mucus) Few /LPF [facility] [id number] 02:43:00 Test Item Value Reference Range Interpretation Comments UA Glucose (test code Negative (04/06/16 8:43 = UA Glucose) PM) [facility] AND [id number] 02:43:00 Test Item Value Reference Range Interpretation Comments UA Protein (test code Negative (04/06/16 8:43 = UA Protein) PM) [facility] AND [id number] 02:43:00 Test Item Value Reference Range Interpretation Comments UA pH (test code = UA pH) 5.5 1 5.0-8.0 [facility] AND [id number] 02:43:00 Test Item Value Reference Range Interpretation Comments UA Spec Grav (test code = UA Spec 1.025 1 Grav) [facility] AND [id number] 02:43:00 Test Item Value Reference Range Interpretation Comments UA Ketones (test code = UA >=80 mg/dL Ketones) [facility] AND [id number] 02:43:00 Test Item Value Reference Range Interpretation Comments UA Nitrite (test code Negative (04/06/16 8:43 = UA Nitrite) PM) [facility] AND [id number] 02:43:00 Test Item Value Reference Range Interpretation Comments UA Urobilinogen (test code = UA 0.2 0.1-1.0 Urobilinogen) [facility] AND [id number] 02:43:00 Test Item Value Reference Range Interpretation Comments UA Blood (test code = Negative (04/06/16 8:43 UA Blood) PM) [facility] AND [id number] 02:43:00 Test Item Value Reference Range Interpretation Comments UA Bili (test code = Small *ABN*(04/06/16 UA Bili) 8:43 PM) [facility] AND [id number] 02:43:00 Test Item Value Reference Range Interpretation Comments UA Leuk Est (test code Trace *ABN*(04/06/16 = UA Leuk Est) 8:43 PM) [facility] AND [id number] 02:43:00 Test Item Value Reference Range Interpretation Comments UA Turbidity (test code = Clear (04/06/16 8:43 UA Turbidity) PM) [facility] AND [id number] 02:43:00 Test Item Value Reference Range Interpretation Comments UA Color (test code = Yellow *NA*(04/06/16 UA Color) 8:43 PM) [facility] [id number] 02:43:00 Test Item Value Reference Range Interpretation Comments UDS Note (test code = See Note *NA*(04/06/16 UDS Note) 8:43 PM) [facility] [id number] 02:43:00 Test Item Value Reference Range Interpretation Comments U Opiate Scr (test Negative *NA*(04/06/16 code = U Opiate Scr) 8:43 PM) [facility] [id number] 02:43:00 Test Item Value Reference Range Interpretation Comments U Benzodia Scr (test Negative *NA*(04/06/16 code = U Benzodia Scr) 8:43 PM) [facility] [id number] 02:43:00 Test Item Value Reference Range Interpretation Comments U Cocaine Scr (test Negative *NA*(04/06/16 code = U Cocaine Scr) 8:43 PM) [facility] [id number] 02:43:00 Test Item Value Reference Range Interpretation Comments U Phencyc Scr (test Negative *NA*(04/06/16 code = U Phencyc Scr) 8:43 PM) [facility] [id number] 02:43:00 Test Item Value Reference Range Interpretation Comments U Odalys Scr (test code Negative *NA*(04/06/16 = U Odalys Scr) 8:43 PM) [facility] [id number] 02:43:00 Test Item Value Reference Range Interpretation Comments U Cannab Scr (test Negative *NA*(04/06/16 code = U Cannab Scr) 8:43 PM) [facility] [id number] 02:43:00 Test Item Value Reference Range Interpretation Comments U Amph Scr (test code Negative *NA*(04/06/16 = U Amph Scr) 8:43 PM) [facility] [id number] 02:43:00 Test Item Value Reference Range Interpretation Comments UA WBC (test code = UA WBC) 3-5 /HPF [facility] [id number] 02:43:00 Test Item Value Reference Range Interpretation Comments UA Sq Epi (test code = UA Sq Epi) Rare /LPF [facility] [id number] 02:43:00 Test Item Value Reference Range Interpretation Comments UA RBC (test code = 0-2 /HPF See_Comment [Automa abdelrahman message] The UA RBC) system which ge nerated this result tra nsmitted reference range : <=2. The reference range was not used to interpr et this result as gurpreet l/abnormal. [facility] AND [id number] 02:43:00 Test Item Value Reference Range Interpretation Comments UA Bacteria (test code = UA Occasional /HPF Bacteria) [facility] AND [id number] 02:43:00 Test Item Value Reference Range Interpretation Comments UA Mucus (test code = UA Mucus) Few /LPF [facility] AND [id number] 02:43:00 Test Item Value Reference Range Interpretation Comments UA Glucose (test code Negative (04/06/16 8:43 = UA Glucose) PM) [facility] AND [id number] 02:43:00 Test Item Value Reference Range Interpretation Comments UA Protein (test code Negative (04/06/16 8:43 = UA Protein) PM) [facility] AND [id number] 02:43:00 Test Item Value Reference Range Interpretation Comments UA pH (test code = UA pH) 5.5 1 5.0-8.0 [facility] AND [id number] 02:43:00 Test Item Value Reference Range Interpretation Comments UA Spec Grav (test code = UA Spec 1.025 1 Grav) [facility] AND [id number] 02:43:00 Test Item Value Reference Range Interpretation Comments UA Ketones (test code = UA >=80 mg/dL Ketones) [facility] AND [id number] 02:43:00 Test Item Value Reference Range Interpretation Comments UA Nitrite (test code Negative (04/06/16 8:43 = UA Nitrite) PM) [facility] AND [id number] 02:43:00 Test Item Value Reference Range Interpretation Comments UA Urobilinogen (test code = UA 0.2 0.1-1.0 Urobilinogen) [facility] AND [id number] 02:43:00 Test Item Value Reference Range Interpretation Comments UA Blood (test code = Negative (04/06/16 8:43 UA Blood) PM) [facility] AND [id number] 02:43:00 Test Item Value Reference Range Interpretation Comments UA Bili (test code = Small *ABN*(04/06/16 UA Bili) 8:43 PM) [facility] [id number] 02:43:00 Test Item Value Reference Range Interpretation Comments UA Leuk Est (test code Trace *ABN*(04/06/16 = UA Leuk Est) 8:43 PM) [facility] [id number] 02:43:00 Test Item Value Reference Range Interpretation Comments UA Turbidity (test code = Clear (04/06/16 8:43 UA Turbidity) PM) [facility] [id number] 02:43:00 Test Item Value Reference Range Interpretation Comments UA Color (test code = Yellow *NA*(04/06/16 UA Color) 8:43 PM) [facility] [id number] 02:43:00 Test Item Value Reference Range Interpretation Comments UDS Note (test code = See Note *NA*(04/06/16 UDS Note) 8:43 PM) [facility] [id number] 02:43:00 Test Item Value Reference Range Interpretation Comments U Opiate Scr (test Negative *NA*(04/06/16 code = U Opiate Scr) 8:43 PM) [facility] [id number] 02:43:00 Test Item Value Reference Range Interpretation Comments U Benzodia Scr (test Negative *NA*(04/06/16 code = U Benzodia Scr) 8:43 PM) [facility] [id number] 02:43:00 Test Item Value Reference Range Interpretation Comments U Cocaine Scr (test Negative *NA*(04/06/16 code = U Cocaine Scr) 8:43 PM) [facility] [id number] 02:43:00 Test Item Value Reference Range Interpretation Comments U Phencyc Scr (test Negative *NA*(04/06/16 code = U Phencyc Scr) 8:43 PM) [facility] [id number] 02:43:00 Test Item Value Reference Range Interpretation Comments U Odalys Scr (test code Negative *NA*(04/06/16 = U Odalys Scr) 8:43 PM) [facility] [id number] 02:43:00 Test Item Value Reference Range Interpretation Comments U Cannab Scr (test Negative *NA*(04/06/16 code = U Cannab Scr) 8:43 PM) [facility] [id number] 02:43:00 Test Item Value Reference Range Interpretation Comments U Amph Scr (test code Negative *NA*(04/06/16 = U Amph Scr) 8:43 PM) [facility] [id number] 02:43:00 Test Item Value Reference Range Interpretation Comments UA WBC (test code = UA WBC) 3-5 /HPF [facility] [id number] 02:43:00 Test Item Value Reference Range Interpretation Comments UA Sq Epi (test code = UA Sq Epi) Rare /LPF [facility] [id number] 02:43:00 Test Item Value Reference Range Interpretation Comments UA RBC (test code = 0-2 /HPF See_Comment [Automa abdelrahman message] The UA RBC) system which ge nerated this result tra nsmitted reference range : <=2. The reference range was not used to interpr et this result as gurpreet l/abnormal. [facility] [id number] 02:43:00 Test Item Value Reference Range Interpretation Comments UA Bacteria (test code = UA Occasional /HPF Bacteria) [facility] [id number] 02:43:00 Test Item Value Reference Range Interpretation Comments UA Mucus (test code = UA Mucus) Few /LPF [facility] [id number] 02:43:00 Test Item Value Reference Range Interpretation Comments UA Glucose (test code Negative (04/06/16 8:43 = UA Glucose) PM) [facility] [id number] 02:43:00 Test Item Value Reference Range Interpretation Comments UA Protein (test code Negative (04/06/16 8:43 = UA Protein) PM) [facility] [id number] 02:43:00 Test Item Value Reference Range Interpretation Comments UA pH (test code = UA pH) 5.5 1 5.0-8.0 [facility] [id number] 02:43:00 Test Item Value Reference Range Interpretation Comments UA Spec Grav (test code = UA Spec 1.025 1 Grav) [facility] [id number] 02:43:00 Test Item Value Reference Range Interpretation Comments UA Ketones (test code = UA >=80 mg/dL Ketones) [facility] [id number] 02:43:00 Test Item Value Reference Range Interpretation Comments UA Nitrite (test code Negative (04/06/16 8:43 = UA Nitrite) PM) [facility] [id number] 02:43:00 Test Item Value Reference Range Interpretation Comments UA Urobilinogen (test code = UA 0.2 0.1-1.0 Urobilinogen) [facility] [id number] 02:43:00 Test Item Value Reference Range Interpretation Comments UA Blood (test code = Negative (04/06/16 8:43 UA Blood) PM) [facility] [id number] 02:43:00 Test Item Value Reference Range Interpretation Comments UA Bili (test code = Small *ABN*(04/06/16 UA Bili) 8:43 PM) [facility] [id number] 02:43:00 Test Item Value Reference Range Interpretation Comments UA Leuk Est (test code Trace *ABN*(04/06/16 = UA Leuk Est) 8:43 PM) [facility] [id number] 02:43:00 Test Item Value Reference Range Interpretation Comments UA Turbidity (test code = Clear (04/06/16 8:43 UA Turbidity) PM) [facility] [id number] 02:43:00 Test Item Value Reference Range Interpretation Comments UA Color (test code = Yellow *NA*(04/06/16 UA Color) 8:43 PM) [facility] [id number] 02:43:00 Test Item Value Reference Range Interpretation Comments UDS Note (test code = See Note *NA*(04/06/16 UDS Note) 8:43 PM) [facility] [id number] 02:43:00 Test Item Value Reference Range Interpretation Comments U Opiate Scr (test Negative *NA*(04/06/16 code = U Opiate Scr) 8:43 PM) [facility] [id number] 02:43:00 Test Item Value Reference Range Interpretation Comments U Benzodia Scr (test Negative *NA*(04/06/16 code = U Benzodia Scr) 8:43 PM) [facility] [id number] 02:43:00 Test Item Value Reference Range Interpretation Comments U Cocaine Scr (test Negative *NA*(04/06/16 code = U Cocaine Scr) 8:43 PM) [facility] [id number] 02:43:00 Test Item Value Reference Range Interpretation Comments U Phencyc Scr (test Negative *NA*(04/06/16 code = U Phencyc Scr) 8:43 PM) [facility] [id number] 02:43:00 Test Item Value Reference Range Interpretation Comments U Odalys Scr (test code Negative *NA*(04/06/16 = U Odalys Scr) 8:43 PM) [facility] [id number] 02:43:00 Test Item Value Reference Range Interpretation Comments U Cannab Scr (test Negative *NA*(04/06/16 code = U Cannab Scr) 8:43 PM) [facility] [id number] 02:43:00 Test Item Value Reference Range Interpretation Comments U Amph Scr (test code Negative *NA*(04/06/16 = U Amph Scr) 8:43 PM) [facility] [id number] 02:43:00 Test Item Value Reference Range Interpretation Comments UA WBC (test code = UA WBC) 3-5 /HPF [facility] [id number] 02:43:00 Test Item Value Reference Range Interpretation Comments UA Sq Epi (test code = UA Sq Epi) Rare /LPF [facility] [id number] 02:43:00 Test Item Value Reference Range Interpretation Comments UA RBC (test code = 0-2 /HPF See_Comment [Automa abdelrahman message] The UA RBC) system which ge nerated this result tra nsmitted reference range : <=2. The reference range was not used to interpr et this result as gurpreet l/abnormal. [facility] [id number] 02:43:00 Test Item Value Reference Range Interpretation Comments UA Bacteria (test code = UA Occasional /HPF Bacteria) [facility] [id number] 02:43:00 Test Item Value Reference Range Interpretation Comments UA Mucus (test code = UA Mucus) Few /LPF [facility] [id number] 02:43:00 Test Item Value Reference Range Interpretation Comments UA Glucose (test code Negative (04/06/16 8:43 = UA Glucose) PM) [facility] AND [id number] 02:43:00 Test Item Value Reference Range Interpretation Comments UA Protein (test code Negative (04/06/16 8:43 = UA Protein) PM) [facility] AND [id number] 02:43:00 Test Item Value Reference Range Interpretation Comments UA pH (test code = UA pH) 5.5 1 5.0-8.0 [facility] AND [id number] 02:43:00 Test Item Value Reference Range Interpretation Comments UA Spec Grav (test code = UA Spec 1.025 1 Grav) [facility] AND [id number] 02:43:00 Test Item Value Reference Range Interpretation Comments UA Ketones (test code = UA >=80 mg/dL Ketones) [facility] AND [id number] 02:43:00 Test Item Value Reference Range Interpretation Comments UA Nitrite (test code Negative (04/06/16 8:43 = UA Nitrite) PM) [facility] AND [id number] 02:43:00 Test Item Value Reference Range Interpretation Comments UA Urobilinogen (test code = UA 0.2 0.1-1.0 Urobilinogen) [facility] AND [id number] 02:43:00 Test Item Value Reference Range Interpretation Comments UA Blood (test code = Negative (04/06/16 8:43 UA Blood) PM) [facility] AND [id number] 02:43:00 Test Item Value Reference Range Interpretation Comments UA Bili (test code = Small *ABN*(04/06/16 UA Bili) 8:43 PM) [facility] AND [id number] 02:43:00 Test Item Value Reference Range Interpretation Comments UA Leuk Est (test code Trace *ABN*(04/06/16 = UA Leuk Est) 8:43 PM) [facility] AND [id number] 02:43:00 Test Item Value Reference Range Interpretation Comments UA Turbidity (test code = Clear (04/06/16 8:43 UA Turbidity) PM) [facility] [id number] 02:43:00 Test Item Value Reference Range Interpretation Comments UA Color (test code = Yellow *NA*(04/06/16 UA Color) 8:43 PM) [facility] [id number] 02:43:00 Test Item Value Reference Range Interpretation Comments UDS Note (test code = See Note *NA*(04/06/16 UDS Note) 8:43 PM) [facility] [id number] 02:43:00 Test Item Value Reference Range Interpretation Comments U Opiate Scr (test Negative *NA*(04/06/16 code = U Opiate Scr) 8:43 PM) [facility] [id number] 02:43:00 Test Item Value Reference Range Interpretation Comments U Benzodia Scr (test Negative *NA*(04/06/16 code = U Benzodia Scr) 8:43 PM) [facility] [id number] 02:43:00 Test Item Value Reference Range Interpretation Comments U Cocaine Scr (test Negative *NA*(04/06/16 code = U Cocaine Scr) 8:43 PM) [facility] [id number] 02:43:00 Test Item Value Reference Range Interpretation Comments U Phencyc Scr (test Negative *NA*(04/06/16 code = U Phencyc Scr) 8:43 PM) [facility] [id number] 02:43:00 Test Item Value Reference Range Interpretation Comments U Odalys Scr (test code Negative *NA*(04/06/16 = U Odalys Scr) 8:43 PM) [facility] [id number] 02:43:00 Test Item Value Reference Range Interpretation Comments U Cannab Scr (test Negative *NA*(04/06/16 code = U Cannab Scr) 8:43 PM) [facility] [id number] 02:43:00 Test Item Value Reference Range Interpretation Comments U Amph Scr (test code Negative *NA*(04/06/16 = U Amph Scr) 8:43 PM) [facility] [id number] 02:43:00 Test Item Value Reference Range Interpretation Comments UA WBC (test code = UA WBC) 3-5 /HPF [facility] [id number] 02:43:00 Test Item Value Reference Range Interpretation Comments UA Sq Epi (test code = UA Sq Epi) Rare /LPF [facility] AND [id number] 02:43:00 Test Item Value Reference Range Interpretation Comments UA RBC (test code = 0-2 /HPF See_Comment [Automa abdelrahman message] The UA RBC) system which ge nerated this result tra nsmitted reference range : <=2. The reference range was not used to interpr et this result as gurpreet l/abnormal. [facility] AND [id number] 02:43:00 Test Item Value Reference Range Interpretation Comments UA Bacteria (test code = UA Occasional /HPF Bacteria) [facility] AND [id number] 02:43:00 Test Item Value Reference Range Interpretation Comments UA Mucus (test code = UA Mucus) Few /LPF [facility] AND [id number] 02:43:00 Test Item Value Reference Range Interpretation Comments UA Glucose (test code Negative (04/06/16 8:43 = UA Glucose) PM) [facility] AND [id number] 02:43:00 Test Item Value Reference Range Interpretation Comments UA Protein (test code Negative (04/06/16 8:43 = UA Protein) PM) [facility] AND [id number] 02:43:00 Test Item Value Reference Range Interpretation Comments UA pH (test code = UA pH) 5.5 1 5.0-8.0 [facility] AND [id number] 02:43:00 Test Item Value Reference Range Interpretation Comments UA Spec Grav (test code = UA Spec 1.025 1 Grav) [facility] AND [id number] 02:43:00 Test Item Value Reference Range Interpretation Comments UA Ketones (test code = UA >=80 mg/dL Ketones) [facility] AND [id number] 02:43:00 Test Item Value Reference Range Interpretation Comments UA Nitrite (test code Negative (04/06/16 8:43 = UA Nitrite) PM) [facility] AND [id number] 02:43:00 Test Item Value Reference Range Interpretation Comments UA Urobilinogen (test code = UA 0.2 0.1-1.0 Urobilinogen) [facility] AND [id number] 02:43:00 Test Item Value Reference Range Interpretation Comments UA Blood (test code = Negative (04/06/16 8:43 UA Blood) PM) [facility] [id number] 02:43:00 Test Item Value Reference Range Interpretation Comments UA Bili (test code = Small *ABN*(04/06/16 UA Bili) 8:43 PM) [facility] [id number] 02:43:00 Test Item Value Reference Range Interpretation Comments UA Leuk Est (test code Trace *ABN*(04/06/16 = UA Leuk Est) 8:43 PM) [facility] [id number] 02:43:00 Test Item Value Reference Range Interpretation Comments UA Turbidity (test code = Clear (04/06/16 8:43 UA Turbidity) PM) [facility] [id number] 02:43:00 Test Item Value Reference Range Interpretation Comments UA Color (test code = Yellow *NA*(04/06/16 UA Color) 8:43 PM) [facility] [id number] 02:38:00 Test Item Value Reference Range Interpretation Comments Total CK (test code = Total CK) 598 12-191 [facility] [id number] 02:38:00 Test Item Value Reference Range Interpretation Comments eGFR (test code = eGFR) 121 [facility] [id number] 02:38:00 Test Item Value Reference Range Interpretation Comments Calcium Lvl (test code = Calcium Lvl) 9.2 8.5-10.5 [facility] [id number] 02:38:00 Test Item Value Reference Range Interpretation Comments Total Protein (test code = Total 7.6 6.4-8.4 Protein) [facility] [id number] 02:38:00 Test Item Value Reference Range Interpretation Comments CO2 (test code = CO2) 22 24-32 [facility] [id number] 02:38:00 Test Item Value Reference Range Interpretation Comments AST (test code = AST) 43 See_Comment [Auto mated message] The system which ge nerated this result transmit abdelrahman reference range : <=37. The reference range was not used to interpr et this result as gurpreet l/abnormal. [facility] [id number] 02:38:00 Test Item Value Reference Range Interpretation Comments Albumin Lvl (test code = Albumin Lvl) 4.4 3.5-5.0 [facility]2016-12-08 02:38:00 Test Item Value Reference Range Interpretation Comments ALT (test code = ALT) 22 See_Comment [Auto mated message] The system which ge nerated this result transmit abdelrahman reference range : <=65. The reference range was not used to interpr et this result as gurpreet l/abnormal. [facility]2016-12-08 02:38:00 Test Item Value Reference Range Interpretation Comments Chloride Lvl (test code = Chloride Lvl) 101 95-109 [facility]2016-12-08 02:38:00 Test Item Value Reference Range Interpretation Comments Creatinine Lvl (test code = Creatinine 0.81 0.50-1.40 Lvl) [facility]2016-12-08 02:38:00 Test Item Value Reference Range Interpretation Comments Sodium Lvl (test code = Sodium Lvl) 136 135-145 [facility]2016-12-08 02:38:00 Test Item Value Reference Range Interpretation Comments Potassium Lvl (test code = Potassium 4.4 3.5-5.1 Lvl) [facility]2016-12-08 02:38:00 Test Item Value Reference Range Interpretation Comments Bili Total (test code = Bili Total) 0.9 0.2-1.3 [facility]2016-12-08 02:38:00 Test Item Value Reference Range Interpretation Comments Alk Phos (test code = Alk Phos) 34 39-136 [facility]2016-12-08 02:38:00 Test Item Value Reference Range Interpretation Comments Glucose Lvl (test code = Glucose Lvl) 63 70-99 [facility]2016-12-08 02:38:00 Test Item Value Reference Range Interpretation Comments BUN (test code = BUN) 14 7-22 [facility]2016-12-08 02:38:00 Test Item Value Reference Range Interpretation Comments AGAP (test code = AGAP) 17.4 10.0-20.0 [facility]2016-12-08 02:38:00 Test Item Value Reference Range Interpretation Comments B/C Ratio (test code = B/C Ratio) 17 6-25 [facility]2016-12-08 02:38:00 Test Item Value Reference Range Interpretation Comments Globulin (test code = Globulin) 3.2 2.7-4.2 [facility]2016-12-08 02:38:00 Test Item Value Reference Range Interpretation Comments A/G Ratio (test code = A/G Ratio) 1.4 0.7-1.6 [facility]ZitmyjfMDIGFSVNNX6724-06-53 02:38:00 Test Item Value Reference Range Interpretation Comments Lymphocytes # (test code = Lymphocytes 1.7 1.0-5.5 #) [facility] HospitalXnekgleOGXQOGTODN8603-14-77 02:38:00 Test Item Value Reference Range Interpretation Comments Eosinophils (test code = 1.0 See_Comment [A utomated message] The Eosinophils) system which ge nerated this result tra nsmitted reference range : <=4.0. The reference r annemarie was not used to int erpret this result as normal/abnormal . [facility] HospitalYlpxkiyDTBNGKJVRN8013-13-00 02:38:00 Test Item Value Reference Range Interpretation Comments Basophils (test code = 0.4 See_Comment [Aut omated message] The Basophils) system which ge nerated this result tra nsmitted reference range : <=1.0. The reference r annemarie was not used to int erpret this result as normal/abnormal . [facility] HospitalUbhmnilKQRVYFUQCO2087-53-07 02:38:00 Test Item Value Reference Range Interpretation Comments Segs-Bands # (test code = Segs-Bands #) 4.2 1.5-8.1 [facility] HospitalDzrcebxDDUKNWNKDH5052-42-38 02:38:00 Test Item Value Reference Range Interpretation Comments Monocytes (test code = Monocytes) 9.2 2.0-12.0 [facility] HospitalGdghptlUBKIVZMRUZ9580-17-52 02:38:00 Test Item Value Reference Range Interpretation Comments Monocytes # (test code 0.6 See_Comment [Aut omated message] The = Monocytes #) system which generated this result tra nsmitted reference range : <=0.8. The reference r annemarie was not used to int erpret this result as normal/abnormal . [facility] HospitalKpylbmnIGLHHFUPPW4851-80-33 02:38:00 Test Item Value Reference Range Interpretation Comments Eosinophils # (test code 0.1 See_Comment [A utomated message] The = Eosinophils #) system [employer] generated this result tra nsmitted reference range : <=0.5. The reference r annemarie was not used to int erpret this result as normal/abnormal . [facility] HospitalVqnlgxqCPHNEEPMZF6334-09-20 02:38:00 Test Item Value Reference Range Interpretation Comments Lymphocytes (test code = Lymphocytes) 26.3 20.0-40.0 [facility] HospitalTgylsjjSEIGXDPUFW8465-64-21 02:38:00 Test Item Value Reference Range Interpretation Comments Segs (test code = Segs) 63.1 45.0-75.0 [facility] HospitalHvohggzTIYEDSJHPB8986-83-05 02:38:00 Test Item Value Reference Range Interpretation Comments WBC (test code = WBC) 6.6 3.7-10.4 [facility] HospitalGktmylwIDSKUAIWEJ7569-49-82 02:38:00 Test Item Value Reference Range Interpretation Comments Hct (test code = Hct) 42.9 42.0-54.0 [facility] HospitalEsasldkSGBZIKMVHC4783-60-19 02:38:00 Test Item Value Reference Range Interpretation Comments RBC (test code = RBC) 4.86 4.70-6.10 [facility] HospitalQhjstrjCATAMEDUZF8566-28-54 02:38:00 Test Item Value Reference Range Interpretation Comments Hgb (test code = Hgb) 14.4 14.0-18.0 [facility] HospitalIrdvdhyVEHKDIBQYW7114-48-73 02:38:00 Test Item Value Reference Range Interpretation Comments MCV (test code = MCV) 88.3 80.0-94.0 [facility] HospitalRtrubufZHWVNIBLZW2075-80-98 02:38:00 Test Item Value Reference Range Interpretation Comments MCH (test code = MCH) 29.6 pg 27.0-31.0 [facility] HospitalKwhsympTVADRMAHYL0674-89-94 02:38:00 Test Item Value Reference Range Interpretation Comments MCHC (test code = MCHC) 33.6 32.0-36.0 [facility] HospitalSmenavcJGTLNYMZVF6626-97-12 02:38:00 Test Item Value Reference Range Interpretation Comments MPV (test code = MPV) 9.4 7.4-10.4 [facility] HospitalPulenbgHTGNMGTJIT6580-78-02 02:38:00 Test Item Value Reference Range Interpretation Comments RDW (test code = RDW) 13.4 11.5-14.5 [facility] AwzhcooOHBBICYFYL4847-87-66 02:38:00 Test Item Value Reference Range Interpretation Comments Platelet (test code = Platelet) 145 133-450 [facility] AustinRklaidxCIDWARENAZ5277-97-88 02:38:00 Test Item Value Reference Range Interpretation Comments Salicylate Lvl (test no gt See_Comment [Autom ated message] The code = Salicylate Lvl) syste m which generated this result tra nsmitted reference range : <=30.0. The reference r annemarie was not used to int erpret this result as normal/abnormal . [facility] AustinWkbqaurSUNYWDLBDS2568-84-76 02:38:00 Test Item Value Reference Range Interpretation Comments Acetaminoph Lvl (test code (04/06/16 8:38 PM) 10-20 = Acetaminoph Lvl) [facility]annVIRAL - [id number] 02:38:00 Test Item Value Reference Range Interpretation Comments Influ B (test code = Negative (04/06/16 8:38 Influ B) PM) [facility] EBXJMTNW1072-43-02 02:38:00 Test Item Value Reference Range Interpretation Comments Influ A (test code = Negative (04/06/16 8:38 Influ A) PM) [facility] AustinannCARDIAC KMXYVKH9650-10-21 02:38:00 Test Item Value Reference Range Interpretation Comments Total CK (test code = Total CK) 598 12-191 [facility] AustinIMshoppingCHEM RWQEL7301-50-80 02:38:00 Test Item Value Reference Range Interpretation Comments eGFR (test code = eGFR) 121 [facility] DRKDD0120-47-13 02:38:00 Test Item Value Reference Range Interpretation Comments Calcium Lvl (test code = Calcium Lvl) 9.2 8.5-10.5 [facility]CHE[facility] YWKRI9547-51-66 02:38:00 Test Item Value Reference Range Interpretation Comments Total Protein (test code = Total 7.6 6.4-8.4 Protein) [facility]CHE[facility] [id number] 02:38:00 Test Item Value Reference Range Interpretation Comments CO2 (test code = CO2) 22 24-32 [facility] SQUFO2575-76-15 02:38:00 Test Item Value Reference Range Interpretation Comments AST (test code = AST) 43 See_Comment [Auto mated message] The system which ge nerated this result transmit abdelrahman reference range : <=37. The reference range was not used to interpr et this result as gurpreet l/abnormal. [facility]2016-12-08 02:38:00 Test Item Value Reference Range Interpretation Comments Albumin Lvl (test code = Albumin Lvl) 4.4 3.5-5.0 [facility]2016-12-08 02:38:00 Test Item Value Reference Range Interpretation Comments ALT (test code = ALT) 22 See_Comment [Auto mated message] The system which ge nerated this result transmit abdelrahman reference range : <=65. The reference range was not used to interpr et this result as gurpreet l/abnormal. [facility]2016-12-08 02:38:00 Test Item Value Reference Range Interpretation Comments Chloride Lvl (test code = Chloride Lvl) 101 95-109 [facility]2016-12-08 02:38:00 Test Item Value Reference Range Interpretation Comments Creatinine Lvl (test code = Creatinine 0.81 0.50-1.40 Lvl) [facility]2016-12-08 02:38:00 Test Item Value Reference Range Interpretation Comments Sodium Lvl (test code = Sodium Lvl) 136 135-145 [facility]2016-12-08 02:38:00 Test Item Value Reference Range Interpretation Comments Potassium Lvl (test code = Potassium 4.4 3.5-5.1 Lvl) [facility]2016-12-08 02:38:00 Test Item Value Reference Range Interpretation Comments Bili Total (test code = Bili Total) 0.9 0.2-1.3 [facility]2016-12-08 02:38:00 Test Item Value Reference Range Interpretation Comments Alk Phos (test code = Alk Phos) 34 39-136 [facility]2016-12-08 02:38:00 Test Item Value Reference Range Interpretation Comments Glucose Lvl (test code = Glucose Lvl) 63 70-99 [facility]2016-12-08 02:38:00 Test Item Value Reference Range Interpretation Comments BUN (test code = BUN) 14 7-22 [facility]2016-12-08 02:38:00 Test Item Value Reference Range Interpretation Comments AGAP (test code = AGAP) 17.4 10.0-20.0 [facility]2016-12-08 02:38:00 Test Item Value Reference Range Interpretation Comments B/C Ratio (test code = B/C Ratio) 17 6-25 [facility]2016-12-08 02:38:00 Test Item Value Reference Range Interpretation Comments Globulin (test code = Globulin) 3.2 2.7-4.2 [facility]2016-12-08 02:38:00 Test Item Value Reference Range Interpretation Comments A/G Ratio (test code = A/G Ratio) 1.4 0.7-1.6 [facility] HospitalDfudqsiHDJBZDKASN2584-00-82 02:38:00 Test Item Value Reference Range Interpretation Comments Lymphocytes # (test code = Lymphocytes 1.7 1.0-5.5 #) [facility] HospitalWazanphSONPZAUITV1623-82-62 02:38:00 Test Item Value Reference Range Interpretation Comments Eosinophils (test code = 1.0 See_Comment [A utomated message] The Eosinophils) system which ge nerated this result tra nsmitted reference range : <=4.0. The reference r annemarie was not used to int erpret this result as normal/abnormal . [facility] HospitalRcqezezEMBXFZSXFA3278-07-83 02:38:00 Test Item Value Reference Range Interpretation Comments Basophils (test code = 0.4 See_Comment [Aut omated message] The Basophils) system which ge nerated this result tra nsmitted reference range : <=1.0. The reference r annemarie was not used to int erpret this result as normal/abnormal . [facility] HospitalSrdkrtqYPFQFFGGPH2650-03-05 02:38:00 Test Item Value Reference Range Interpretation Comments Segs-Bands # (test code = Segs-Bands #) 4.2 1.5-8.1 [facility] HospitalUsdhgkdBZIOLTMGTP6295-38-89 02:38:00 Test Item Value Reference Range Interpretation Comments Monocytes (test code = Monocytes) 9.2 2.0-12.0 [facility] HospitalHfbxdxpCQAHWNMTCS3551-36-47 02:38:00 Test Item Value Reference Range Interpretation Comments Monocytes # (test code 0.6 See_Comment [Aut omated message] The = Monocytes #) system which generated this result tra nsmitted reference range : <=0.8. The reference r annemarie was not used to int erpret this result as normal/abnormal . [facility] HospitalGrjlkvfTHQUHXOFVY4912-10-26 02:38:00 Test Item Value Reference Range Interpretation Comments Eosinophils # (test code 0.1 See_Comment [A utomated message] The = Eosinophils #) system [employer] generated this result tra nsmitted reference range : <=0.5. The reference r annemarie was not used to int erpret this result as normal/abnormal . [facility] HospitalXgiwboqZLOXCGKZPP3487-36-99 02:38:00 Test Item Value Reference Range Interpretation Comments Lymphocytes (test code = Lymphocytes) 26.3 20.0-40.0 [facility] HospitalJvxbdjjNDDLPWTOVA2141-05-01 02:38:00 Test Item Value Reference Range Interpretation Comments Segs (test code = Segs) 63.1 45.0-75.0 [facility] HospitalEbryizdACCPSHNZEY5458-50-97 02:38:00 Test Item Value Reference Range Interpretation Comments WBC (test code = WBC) 6.6 3.7-10.4 [facility] HospitalPqdhqloYBCKPRZDPK3424-23-82 02:38:00 Test Item Value Reference Range Interpretation Comments Hct (test code = Hct) 42.9 42.0-54.0 [facility] HospitalTsbgpzkXHEBKFWNRY7078-19-39 02:38:00 Test Item Value Reference Range Interpretation Comments RBC (test code = RBC) 4.86 4.70-6.10 [facility] HospitalUnvuuowHQFLVESABJ6415-39-34 02:38:00 Test Item Value Reference Range Interpretation Comments Hgb (test code = Hgb) 14.4 14.0-18.0 [facility] HospitalSyawhdwVRKMWZNMYW8701-72-85 02:38:00 Test Item Value Reference Range Interpretation Comments MCV (test code = MCV) 88.3 80.0-94.0 [facility] HospitalZawpeitKELAPGNUPC9236-46-48 02:38:00 Test Item Value Reference Range Interpretation Comments MCH (test code = MCH) 29.6 pg 27.0-31.0 [facility] HospitalHyajqgrNPFXJUSAIR5712-05-50 02:38:00 Test Item Value Reference Range Interpretation Comments MCHC (test code = MCHC) 33.6 32.0-36.0 [facility] HospitalAkzecrnSHADZAGXFU7073-20-19 02:38:00 Test Item Value Reference Range Interpretation Comments MPV (test code = MPV) 9.4 7.4-10.4 [facility]IrisxwwLPKTJPTWEZ3474-25-90 02:38:00 Test Item Value Reference Range Interpretation Comments RDW (test code = RDW) 13.4 11.5-14.5 [facility]viewGhdslubASBLWFWMJL2328-38-58 02:38:00 Test Item Value Reference Range Interpretation Comments Platelet (test code = Platelet) 145 133-450 [facility]LdujmuiCFBQISMRLI3931-19-76 02:38:00 Test Item Value Reference Range Interpretation Comments Salicylate Lvl (test no gt See_Comment [Autom ated message] The code = Salicylate Lvl) syste m which generated this result tra nsmitted reference range : <=30.0. The reference r annemarie was not used to int erpret this result as normal/abnormal . [facility]WtxjcvcQKRQALOQSP2811-02-35 02:38:00 Test Item Value Reference Range Interpretation Comments Acetaminoph Lvl (test code (04/06/16 8:38 PM) 10-20 = Acetaminoph Lvl) [facility] EBWOYDQV2674-85-79 02:38:00 Test Item Value Reference Range Interpretation Comments Influ B (test code = Negative (04/06/16 8:38 Influ B) PM) [facility] - YYJFUVMJ4779-16-58 02:38:00 Test Item Value Reference Range Interpretation Comments Influ A (test code = Negative (04/06/16 8:38 Influ A) PM) [facility]CARD[facility] XHFGOEO1678-38-05 02:38:00 Test Item Value Reference Range Interpretation Comments Total CK (test code = Total CK) 598 12-191 [facility] AustinIMshoppingCHEM HOEMI4786-46-24 02:38:00 Test Item Value Reference Range Interpretation Comments eGFR (test code = eGFR) 121 [facility] AustinStellar MICDY0054-76-54 02:38:00 Test Item Value Reference Range Interpretation Comments Calcium Lvl (test code = Calcium Lvl) 9.2 8.5-10.5 [facility]CHE[facility] GWNVO7878-55-36 02:38:00 Test Item Value Reference Range Interpretation Comments Total Protein (test code = Total 7.6 6.4-8.4 Protein) [facility] MLFFZ4982-56-95 02:38:00 Test Item Value Reference Range Interpretation Comments CO2 (test code = CO2) 22 24-32 [facility]2016-12-08 02:38:00 Test Item Value Reference Range Interpretation Comments AST (test code = AST) 43 See_Comment [Auto mated message] The system which ge nerated this result transmit abdelrahman reference range : <=37. The reference range was not used to interpr et this result as gurpreet l/abnormal. [facility]2016-12-08 02:38:00 Test Item Value Reference Range Interpretation Comments Albumin Lvl (test code = Albumin Lvl) 4.4 3.5-5.0 [facility]2016-12-08 02:38:00 Test Item Value Reference Range Interpretation Comments ALT (test code = ALT) 22 See_Comment [Auto mated message] The system which ge nerated this result transmit abdelrahman reference range : <=65. The reference range was not used to interpr et this result as gurpreet l/abnormal. [facility]2016-12-08 02:38:00 Test Item Value Reference Range Interpretation Comments Chloride Lvl (test code = Chloride Lvl) 101 95-109 [facility]2016-12-08 02:38:00 Test Item Value Reference Range Interpretation Comments Creatinine Lvl (test code = Creatinine 0.81 0.50-1.40 Lvl) [facility]2016-12-08 02:38:00 Test Item Value Reference Range Interpretation Comments Sodium Lvl (test code = Sodium Lvl) 136 135-145 [facility]2016-12-08 02:38:00 Test Item Value Reference Range Interpretation Comments Potassium Lvl (test code = Potassium 4.4 3.5-5.1 Lvl) [facility]2016-12-08 02:38:00 Test Item Value Reference Range Interpretation Comments Bili Total (test code = Bili Total) 0.9 0.2-1.3 [facility]2016-12-08 02:38:00 Test Item Value Reference Range Interpretation Comments Alk Phos (test code = Alk Phos) 34 39-136 [facility]2016-12-08 02:38:00 Test Item Value Reference Range Interpretation Comments Glucose Lvl (test code = Glucose Lvl) 63 70-99 [facility]2016-12-08 02:38:00 Test Item Value Reference Range Interpretation Comments BUN (test code = BUN) 14 7-22 [facility]2016-12-08 02:38:00 Test Item Value Reference Range Interpretation Comments AGAP (test code = AGAP) 17.4 10.0-20.0 [facility]2016-12-08 02:38:00 Test Item Value Reference Range Interpretation Comments B/C Ratio (test code = B/C Ratio) 17 6-25 [facility]2016-12-08 02:38:00 Test Item Value Reference Range Interpretation Comments Globulin (test code = Globulin) 3.2 2.7-4.2 [facility]2016-12-08 02:38:00 Test Item Value Reference Range Interpretation Comments A/G Ratio (test code = A/G Ratio) 1.4 0.7-1.6 [facility] HospitalMijappcEMVONCWQMJ5992-80-62 02:38:00 Test Item Value Reference Range Interpretation Comments Lymphocytes # (test code = Lymphocytes 1.7 1.0-5.5 #) [facility] HospitalRiazxdxDWKSYGYYEH9433-48-37 02:38:00 Test Item Value Reference Range Interpretation Comments Eosinophils (test code = 1.0 See_Comment [A utomated message] The Eosinophils) system which ge nerated this result tra nsmitted reference range : <=4.0. The reference r annemarie was not used to int erpret this result as normal/abnormal . [facility] HospitalUpelxkaOXHVLZCXRX5800-93-84 02:38:00 Test Item Value Reference Range Interpretation Comments Basophils (test code = 0.4 See_Comment [Aut omated message] The Basophils) system which ge nerated this result tra nsmitted reference range : <=1.0. The reference r annemarie was not used to int erpret this result as normal/abnormal . [facility] HospitalUkekhysCEMVWOBFZG0116-19-70 02:38:00 Test Item Value Reference Range Interpretation Comments Segs-Bands # (test code = Segs-Bands #) 4.2 1.5-8.1 [facility] HospitalQwggfmyECAHJXLYKI9745-11-14 02:38:00 Test Item Value Reference Range Interpretation Comments Monocytes (test code = Monocytes) 9.2 2.0-12.0 [facility] HospitalIdefxusGAMTBFZIEJ4209-31-02 02:38:00 Test Item Value Reference Range Interpretation Comments Monocytes # (test code 0.6 See_Comment [Aut omated message] The = Monocytes #) system which generated this result tra nsmitted reference range : <=0.8. The reference r annemarie was not used to int erpret this result as normal/abnormal . [facility] HospitalMjsltwqQMQNCLXHDU6501-24-42 02:38:00 Test Item Value Reference Range Interpretation Comments Eosinophils # (test code 0.1 See_Comment [A utomated message] The = Eosinophils #) system whic h generated this result tra nsmitted reference range : <=0.5. The reference r annemarie was not used to int erpret this result as normal/abnormal . [facility] HospitalRrcrjlrTAHFPLBOCA8640-28-84 02:38:00 Test Item Value Reference Range Interpretation Comments Lymphocytes (test code = Lymphocytes) 26.3 20.0-40.0 [facility] HospitalBzrarqtRFPKJEDKEQ4719-45-99 02:38:00 Test Item Value Reference Range Interpretation Comments Segs (test code = Segs) 63.1 45.0-75.0 [facility] HospitalGaxtyoyUAEYKIQUXM3791-31-36 02:38:00 Test Item Value Reference Range Interpretation Comments WBC (test code = WBC) 6.6 3.7-10.4 [facility] HospitalQxmiwdsWAOTZOABYD4925-54-69 02:38:00 Test Item Value Reference Range Interpretation Comments Hct (test code = Hct) 42.9 42.0-54.0 [facility] HospitalCdmdltnTHOAMEWNNT7909-09-87 02:38:00 Test Item Value Reference Range Interpretation Comments RBC (test code = RBC) 4.86 4.70-6.10 [facility] HospitalMxpbdnsDNORLYADLW9580-61-72 02:38:00 Test Item Value Reference Range Interpretation Comments Hgb (test code = Hgb) 14.4 14.0-18.0 [facility] HospitalTdibcskRXEYQLECFI4463-41-76 02:38:00 Test Item Value Reference Range Interpretation Comments MCV (test code = MCV) 88.3 80.0-94.0 [facility] HospitalNedbqjmRTGFDUSHZF0077-02-67 02:38:00 Test Item Value Reference Range Interpretation Comments MCH (test code = MCH) 29.6 pg 27.0-31.0 [facility] HospitalMnaosljIDHBEOSWFN7526-35-78 02:38:00 Test Item Value Reference Range Interpretation Comments MCHC (test code = MCHC) 33.6 32.0-36.0 [facility] AustinCgidqurPWLRGKMBXF8787-98-37 02:38:00 Test Item Value Reference Range Interpretation Comments MPV (test code = MPV) 9.4 7.4-10.4 [facility] AustinJircgxxWQCVZEBQPA9880-06-75 02:38:00 Test Item Value Reference Range Interpretation Comments RDW (test code = RDW) 13.4 11.5-14.5 [facility] AustinMnywvnkRPBGOXLIZM2952-60-44 02:38:00 Test Item Value Reference Range Interpretation Comments Platelet (test code = Platelet) 145 133-450 [facility] AustinXnvjrrkOBSRWJQCNV4861-41-54 02:38:00 Test Item Value Reference Range Interpretation Comments Salicylate Lvl (test no gt See_Comment [Autom ated message] The code = Salicylate Lvl) syste m which generated this result tra nsmitted reference range : <=30.0. The reference r annemarie was not used to int erpret this result as normal/abnormal . [facility] AustinBbazfsiTLPLFDLLRT7862-10-02 02:38:00 Test Item Value Reference Range Interpretation Comments Acetaminoph Lvl (test code (04/06/16 8:38 PM) 10-20 = Acetaminoph Lvl) [facility] AustinannVIRAL - HNUECUTB7689-61-14 02:38:00 Test Item Value Reference Range Interpretation Comments Influ B (test code = Negative (04/06/16 8:38 Influ B) PM) [facility] HermannVIRAL - CUFGRSHE8668-61-66 02:38:00 Test Item Value Reference Range Interpretation Comments Influ A (test code = Negative (04/06/16 8:38 Influ A) PM) [facility] AustinannCARDIAC QVMVSVI4710-13-79 02:38:00 Test Item Value Reference Range Interpretation Comments Total CK (test code = Total CK) 598 12-191 [facility] AustinannCHEM CCJAT3361-27-37 02:38:00 Test Item Value Reference Range Interpretation Comments eGFR (test code = eGFR) 121 [facility] WSSBE8800-[facility]-08 02:38:00 Test Item Value Reference Range Interpretation Comments Calcium Lvl (test code = Calcium Lvl) 9.2 8.5-10.5 [facility] [id number] 02:38:00 Test Item Value Reference Range Interpretation Comments Total Protein (test code = Total 7.6 6.4-8.4 Protein) [facility]2016-12-08 02:38:00 Test Item Value Reference Range Interpretation Comments CO2 (test code = CO2) 22 24-32 [facility]2016-12-08 02:38:00 Test Item Value Reference Range Interpretation Comments AST (test code = AST) 43 See_Comment [Auto mated message] The system which ge nerated this result transmit abdelrahman reference range : <=37. The reference range was not used to interpr et this result as gurpreet l/abnormal. [facility]2016-12-08 02:38:00 Test Item Value Reference Range Interpretation Comments Albumin Lvl (test code = Albumin Lvl) 4.4 3.5-5.0 [facility]2016-12-08 02:38:00 Test Item Value Reference Range Interpretation Comments ALT (test code = ALT) 22 See_Comment [Auto mated message] The system which ge nerated this result transmit abdelrahman reference range : <=65. The reference range was not used to interpr et this result as gurpreet l/abnormal. [facility]2016-12-08 02:38:00 Test Item Value Reference Range Interpretation Comments Chloride Lvl (test code = Chloride Lvl) 101 95-109 [facility]2016-12-08 02:38:00 Test Item Value Reference Range Interpretation Comments Creatinine Lvl (test code = Creatinine 0.81 0.50-1.40 Lvl) [facility]2016-12-08 02:38:00 Test Item Value Reference Range Interpretation Comments Sodium Lvl (test code = Sodium Lvl) 136 135-145 [facility]2016-12-08 02:38:00 Test Item Value Reference Range Interpretation Comments Potassium Lvl (test code = Potassium 4.4 3.5-5.1 Lvl) [facility]2016-12-08 02:38:00 Test Item Value Reference Range Interpretation Comments Bili Total (test code = Bili Total) 0.9 0.2-1.3 [facility]2016-12-08 02:38:00 Test Item Value Reference Range Interpretation Comments Alk Phos (test code = Alk Phos) 34 39-136 [facility]2016-12-08 02:38:00 Test Item Value Reference Range Interpretation Comments Glucose Lvl (test code = Glucose Lvl) 63 70-99 [facility]2016-12-08 02:38:00 Test Item Value Reference Range Interpretation Comments BUN (test code = BUN) 14 7-22 [facility]2016-12-08 02:38:00 Test Item Value Reference Range Interpretation Comments AGAP (test code = AGAP) 17.4 10.0-20.0 [facility]2016-12-08 02:38:00 Test Item Value Reference Range Interpretation Comments B/C Ratio (test code = B/C Ratio) 17 6-25 [facility]2016-12-08 02:38:00 Test Item Value Reference Range Interpretation Comments Globulin (test code = Globulin) 3.2 2.7-4.2 [facility]2016-12-08 02:38:00 Test Item Value Reference Range Interpretation Comments A/G Ratio (test code = A/G Ratio) 1.4 0.7-1.6 [place] 356076-12-08 02:38:00 Test Item Value Reference Range Interpretation Comments Lymphocytes # (test code = Lymphocytes 1.7 1.0-5.5 #) [facility]MxriilmFVSBMUHXHE5174-29-55 02:38:00 Test Item Value Reference Range Interpretation Comments Eosinophils (test code = 1.0 See_Comment [A utomated message] The Eosinophils) system which ge nerated this result tra nsmitted reference range : <=4.0. The reference r annemarie was not used to int erpret this result as normal/abnormal . [facility] HospitalQwdhifuKHPJMPJDCD2090-10-89 02:38:00 Test Item Value Reference Range Interpretation Comments Basophils (test code = 0.4 See_Comment [Aut omated message] The Basophils) system which ge nerated this result tra nsmitted reference range : <=1.0. The reference r annemarie was not used to int erpret this result as normal/abnormal . [place] 356076-12-08 02:38:00 Test Item Value Reference Range Interpretation Comments Segs-Bands # (test code = Segs-Bands #) 4.2 1.5-8.1 [place] [address]-12-08 02:38:00 Test Item Value Reference Range Interpretation Comments Monocytes (test code = Monocytes) 9.2 2.0-12.0 [facility] HospitalWiomjkbXFJGEZZJSS1377-45-79 02:38:00 Test Item Value Reference Range Interpretation Comments Monocytes # (test code 0.6 See_Comment [Aut omated message] The = Monocytes #) system which generated this result tra nsmitted reference range : <=0.8. The reference r annemarie was not used to int erpret this result as normal/abnormal . [facility] HospitalUzjbpsfAUDYCJXQBS7971-22-31 02:38:00 Test Item Value Reference Range Interpretation Comments Eosinophils # (test code 0.1 See_Comment [A utomated message] The = Eosinophils #) system whic h generated this result tra nsmitted reference range : <=0.5. The reference r annemarie was not used to int erpret this result as normal/abnormal . [facility] HospitalQgrwgpcDWDVKLLSMY5790-67-47 02:38:00 Test Item Value Reference Range Interpretation Comments Lymphocytes (test code = Lymphocytes) 26.3 20.0-40.0 [facility] HospitalBmpjmctKLUJPNYYTD8916-64-57 02:38:00 Test Item Value Reference Range Interpretation Comments Segs (test code = Segs) 63.1 45.0-75.0 [facility] HospitalGhvxzofANFTDQEAFH1282-90-92 02:38:00 Test Item Value Reference Range Interpretation Comments WBC (test code = WBC) 6.6 3.7-10.4 [facility] HospitalLspwweePXFJUFOCHB2013-64-67 02:38:00 Test Item Value Reference Range Interpretation Comments Hct (test code = Hct) 42.9 42.0-54.0 [facility] HospitalOnwqlosSRGWMFELEX4813-91-69 02:38:00 Test Item Value Reference Range Interpretation Comments RBC (test code = RBC) 4.86 4.70-6.10 [facility] HospitalEfzwsouUUHYCPVMMZ6103-23-78 02:38:00 Test Item Value Reference Range Interpretation Comments Hgb (test code = Hgb) 14.4 14.0-18.0 [facility] HospitalEstkbmsFKFQAEPMMF5035-72-14 02:38:00 Test Item Value Reference Range Interpretation Comments MCV (test code = MCV) 88.3 80.0-94.0 [facility] HospitalVwkpvzpHMZSNABFYJ2451-86-22 02:38:00 Test Item Value Reference Range Interpretation Comments MCH (test code = MCH) 29.6 pg 27.0-31.0 [facility]MllcpydPNLCAFHWWH6188-21-63 02:38:00 Test Item Value Reference Range Interpretation Comments MCHC (test code = MCHC) 33.6 32.0-36.0 [facility] AustinPyojkopFKJARGRKMG0003-00-83 02:38:00 Test Item Value Reference Range Interpretation Comments MPV (test code = MPV) 9.4 7.4-10.4 [facility] AustinSmhlcuwULKFRTLDPX6260-27-78 02:38:00 Test Item Value Reference Range Interpretation Comments RDW (test code = RDW) 13.4 11.5-14.5 [facility] AustinDojnutkJSWPZXAWSP2747-88-66 02:38:00 Test Item Value Reference Range Interpretation Comments Platelet (test code = Platelet) 145 133-450 [facility] AustinVyjybkmNHULOYNWQN0429-70-62 02:38:00 Test Item Value Reference Range Interpretation Comments Salicylate Lvl (test no gt See_Comment [Autom ated message] The code = Salicylate Lvl) syste m which generated this result tra nsmitted reference range : <=30.0. The reference r annemarie was not used to int erpret this result as normal/abnormal . [facility] AustinQbsplfuVOJHDNRUOL0932-88-58 02:38:00 Test Item Value Reference Range Interpretation Comments Acetaminoph Lvl (test code (04/06/16 8:38 PM) 10-20 = Acetaminoph Lvl) [facility] - MTWEWIID0517-80-82 02:38:00 Test Item Value Reference Range Interpretation Comments Influ B (test code = Negative (04/06/16 8:38 Influ B) PM) [facility] HermannVIRAL - NDGCPSKI9867-82-03 02:38:00 Test Item Value Reference Range Interpretation Comments Influ A (test code = Negative (04/06/16 8:38 Influ A) PM) [facility]annCARDIAC OZCMCPL6838-31-35 02:38:00 Test Item Value Reference Range Interpretation Comments Total CK (test code = Total CK) 598 12-191 [facility] AXFDS4793-31-21 02:38:00 Test Item Value Reference Range Interpretation Comments eGFR (test code = eGFR) 121 [facility] KTTQW4176-44-42 02:38:00 Test Item Value Reference Range Interpretation Comments Calcium Lvl (test code = Calcium Lvl) 9.2 8.5-10.5 [facility]2016-12-08 02:38:00 Test Item Value Reference Range Interpretation Comments Total Protein (test code = Total 7.6 6.4-8.4 Protein) [facility]2016-12-08 02:38:00 Test Item Value Reference Range Interpretation Comments CO2 (test code = CO2) 22 24-32 [place] 401756-12-08 02:38:00 Test Item Value Reference Range Interpretation Comments AST (test code = AST) 43 See_Comment [Auto mated message] The system which ge nerated this result transmit abdelrahman reference range : <=37. The reference range was not used to interpr et this result as gurpreet l/abnormal. [facility]2016-12-08 02:38:00 Test Item Value Reference Range Interpretation Comments Albumin Lvl (test code = Albumin Lvl) 4.4 3.5-5.0 [facility]2016-12-08 02:38:00 Test Item Value Reference Range Interpretation Comments ALT (test code = ALT) 22 See_Comment [Auto mated message] The system which ge nerated this result transmit abdelrahman reference range : <=65. The reference range was not used to interpr et this result as gurpreet l/abnormal. [facility]2016-12-08 02:38:00 Test Item Value Reference Range Interpretation Comments Chloride Lvl (test code = Chloride Lvl) 101 95-109 [facility]2016-12-08 02:38:00 Test Item Value Reference Range Interpretation Comments Creatinine Lvl (test code = Creatinine 0.81 0.50-1.40 Lvl) [facility]2016-12-08 02:38:00 Test Item Value Reference Range Interpretation Comments Sodium Lvl (test code = Sodium Lvl) 136 135-145 [facility]2016-12-08 02:38:00 Test Item Value Reference Range Interpretation Comments Potassium Lvl (test code = Potassium 4.4 3.5-5.1 Lvl) [facility]2016-12-08 02:38:00 Test Item Value Reference Range Interpretation Comments Bili Total (test code = Bili Total) 0.9 0.2-1.3 [facility]2016-12-08 02:38:00 Test Item Value Reference Range Interpretation Comments Alk Phos (test code = Alk Phos) 34 39-136 [facility]2016-12-08 02:38:00 Test Item Value Reference Range Interpretation Comments Glucose Lvl (test code = Glucose Lvl) 63 70-99 [facility]2016-12-08 02:38:00 Test Item Value Reference Range Interpretation Comments BUN (test code = BUN) 14 7-22 [facility]2016-12-08 02:38:00 Test Item Value Reference Range Interpretation Comments AGAP (test code = AGAP) 17.4 10.0-20.0 [facility]2016-12-08 02:38:00 Test Item Value Reference Range Interpretation Comments B/C Ratio (test code = B/C Ratio) 17 6-25 [place] 401756-12-08 02:38:00 Test Item Value Reference Range Interpretation Comments Globulin (test code = Globulin) 3.2 2.7-4.2 [place] 401756-12-08 02:38:00 Test Item Value Reference Range Interpretation Comments A/G Ratio (test code = A/G Ratio) 1.4 0.7-1.6 [facility] HospitalThkswbfKUOTJABYMV6108-52-60 02:38:00 Test Item Value Reference Range Interpretation Comments Lymphocytes # (test code = Lymphocytes 1.7 1.0-5.5 #) [facility] HospitalGmtgqzdDRTVZRJUKL6758-24-19 02:38:00 Test Item Value Reference Range Interpretation Comments Eosinophils (test code = 1.0 See_Comment [A utomated message] The Eosinophils) system which nerated this result tra nsmitted reference range : <=4.0. The reference r annemarie was not used to int erpret this result as normal/abnormal . [facility] HospitalJksyattACICSQCRKY8730-30-42 02:38:00 Test Item Value Reference Range Interpretation Comments Basophils (test code = 0.4 See_Comment [Aut omated message] The Basophils) system which ge nerated this result tra nsmitted reference range : <=1.0. The reference r annemarie was not used to int erpret this result as normal/abnormal . [place] 356076-12-08 02:38:00 Test Item Value Reference Range Interpretation Comments Segs-Bands # (test code = Segs-Bands #) 4.2 1.5-8.1 [facility] HospitalLcidlznLEJVHUMOPV0050-80-39 02:38:00 Test Item Value Reference Range Interpretation Comments Monocytes (test code = Monocytes) 9.2 2.0-12.0 [facility] HospitalQzikvoxOBWBYXUJMU0646-80-39 02:38:00 Test Item Value Reference Range Interpretation Comments Monocytes # (test code 0.6 See_Comment [Aut omated message] The = Monocytes #) system which generated this result tra nsmitted reference range : <=0.8. The reference r annemarie was not used to int erpret this result as normal/abnormal . [facility] HospitalKmikpwvKQMBRLZDCF8731-32-89 02:38:00 Test Item Value Reference Range Interpretation Comments Eosinophils # (test code 0.1 See_Comment [A utomated message] The = Eosinophils #) system whic h generated this result tra nsmitted reference range : <=0.5. The reference r annemarie was not used to int erpret this result as normal/abnormal . [facility] HospitalRyfrbwmVQEISMQYUL8584-50-26 02:38:00 Test Item Value Reference Range Interpretation Comments Lymphocytes (test code = Lymphocytes) 26.3 20.0-40.0 [facility] HospitalFiqqknnJKNWPVYZWV3218-45-21 02:38:00 Test Item Value Reference Range Interpretation Comments Segs (test code = Segs) 63.1 45.0-75.0 [facility] HospitalJkozurlKUPOYAQVNE5764-94-12 02:38:00 Test Item Value Reference Range Interpretation Comments WBC (test code = WBC) 6.6 3.7-10.4 [facility] HospitalTwntozzKTJILXUIUL7809-71-06 02:38:00 Test Item Value Reference Range Interpretation Comments Hct (test code = Hct) 42.9 42.0-54.0 [facility] HospitalXxviuteOPZWJQHBKO2990-63-53 02:38:00 Test Item Value Reference Range Interpretation Comments RBC (test code = RBC) 4.86 4.70-6.10 [facility] HospitalZujheieWBIPQCUHVO5204-07-10 02:38:00 Test Item Value Reference Range Interpretation Comments Hgb (test code = Hgb) 14.4 14.0-18.0 [facility] HospitalNermbbnDUHVWYXNZO6976-66-39 02:38:00 Test Item Value Reference Range Interpretation Comments MCV (test code = MCV) 88.3 80.0-94.0 [facility] AustinTmmdwrdWZECJNINWY1411-92-88 02:38:00 Test Item Value Reference Range Interpretation Comments MCH (test code = MCH) 29.6 pg 27.0-31.0 [facility] AustinCrixorhUYPAGRBURM5946-64-72 02:38:00 Test Item Value Reference Range Interpretation Comments MCHC (test code = MCHC) 33.6 32.0-36.0 [facility] AustinWqokblwJKQNKQZZJH6141-34-13 02:38:00 Test Item Value Reference Range Interpretation Comments MPV (test code = MPV) 9.4 7.4-10.4 [facility] AustinEqcdpiyCMIXYWULPE3507-94-56 02:38:00 Test Item Value Reference Range Interpretation Comments RDW (test code = RDW) 13.4 11.5-14.5 [facility]gsqezfZTWTNYCAXP3105-65-52 02:38:00 Test Item Value Reference Range Interpretation Comments Platelet (test code = Platelet) 145 133-450 [facility] AustinVbqeszqSLMWFAWONY9529-38-54 02:38:00 Test Item Value Reference Range Interpretation Comments Salicylate Lvl (test no gt See_Comment [Autom ated message] The code = Salicylate Lvl) syste m which generated this result tra nsmitted reference range : <=30.0. The reference r annemarie was not used to int erpret this result as normal/abnormal . [facility]TcmevjxHKACTWSBJY9450-81-25 02:38:00 Test Item Value Reference Range Interpretation Comments Acetaminoph Lvl (test code (04/06/16 8:38 PM) 10-20 = Acetaminoph Lvl) [facility] HermannVIRAL - CJPIZPTZ5757-94-95 02:38:00 Test Item Value Reference Range Interpretation Comments Influ B (test code = Negative (04/06/16 8:38 Influ B) PM) [facility] HermannVIRAL - GYKWLILC2777-97-20 02:38:00 Test Item Value Reference Range Interpretation Comments Influ A (test code = Negative (04/06/16 8:38 Influ A) PM) [facility]CARD[facility] AMPFBVR4204-15-97 02:38:00 Test Item Value Reference Range Interpretation Comments Total CK (test code = Total CK) 598 12-191 [facility]2016-12-08 02:38:00 Test Item Value Reference Range Interpretation Comments eGFR (test code = eGFR) 121 [facility]2016-12-08 02:38:00 Test Item Value Reference Range Interpretation Comments Calcium Lvl (test code = Calcium Lvl) 9.2 8.5-10.5 [facility]2016-12-08 02:38:00 Test Item Value Reference Range Interpretation Comments Total Protein (test code = Total 7.6 6.4-8.4 Protein) [facility]2016-12-08 02:38:00 Test Item Value Reference Range Interpretation Comments CO2 (test code = CO2) 22 24-32 [facility]2016-12-08 02:38:00 Test Item Value Reference Range Interpretation Comments AST (test code = AST) 43 See_Comment [Auto mated message] The system which ge nerated this result transmit abdelrahman reference range : <=37. The reference range was not used to interpr et this result as gurpreet l/abnormal. [facility]2016-12-08 02:38:00 Test Item Value Reference Range Interpretation Comments Albumin Lvl (test code = Albumin Lvl) 4.4 3.5-5.0 [facility]2016-12-08 02:38:00 Test Item Value Reference Range Interpretation Comments ALT (test code = ALT) 22 See_Comment [Auto mated message] The system which ge nerated this result transmit abdelrahman reference range : <=65. The reference range was not used to interpr et this result as gurpreet l/abnormal. [facility]2016-12-08 02:38:00 Test Item Value Reference Range Interpretation Comments Chloride Lvl (test code = Chloride Lvl) 101 95-109 [facility]2016-12-08 02:38:00 Test Item Value Reference Range Interpretation Comments Creatinine Lvl (test code = Creatinine 0.81 0.50-1.40 Lvl) [facility]2016-12-08 02:38:00 Test Item Value Reference Range Interpretation Comments Sodium Lvl (test code = Sodium Lvl) 136 135-145 [facility]2016-12-08 02:38:00 Test Item Value Reference Range Interpretation Comments Potassium Lvl (test code = Potassium 4.4 3.5-5.1 Lvl) [facility]2016-12-08 02:38:00 Test Item Value Reference Range Interpretation Comments Bili Total (test code = Bili Total) 0.9 0.2-1.3 [facility]2016-12-08 02:38:00 Test Item Value Reference Range Interpretation Comments Alk Phos (test code = Alk Phos) 34 39-136 [facility]2016-12-08 02:38:00 Test Item Value Reference Range Interpretation Comments Glucose Lvl (test code = Glucose Lvl) 63 70-99 [facility]2016-12-08 02:38:00 Test Item Value Reference Range Interpretation Comments BUN (test code = BUN) 14 7-22 [facility]2016-12-08 02:38:00 Test Item Value Reference Range Interpretation Comments AGAP (test code = AGAP) 17.4 10.0-20.0 [facility]2016-12-08 02:38:00 Test Item Value Reference Range Interpretation Comments B/C Ratio (test code = B/C Ratio) 17 6-25 [place] 401756-12-08 02:38:00 Test Item Value Reference Range Interpretation Comments Globulin (test code = Globulin) 3.2 2.7-4.2 [facility]2016-12-08 02:38:00 Test Item Value Reference Range Interpretation Comments A/G Ratio (test code = A/G Ratio) 1.4 0.7-1.6 [facility] HospitalMoehiqjIFTIPXKMYM3904-86-69 02:38:00 Test Item Value Reference Range Interpretation Comments Lymphocytes # (test code = Lymphocytes 1.7 1.0-5.5 #) [facility] HospitalIkaqgwvDCEGUYNZSW4366-55-62 02:38:00 Test Item Value Reference Range Interpretation Comments Eosinophils (test code = 1.0 See_Comment [A utomated message] The Eosinophils) system which ge nerated this result tra nsmitted reference range : <=4.0. The reference r annemarie was not used to int erpret this result as normal/abnormal . [facility] HospitalQhfgncyUHLLQNYONG8349-51-62 02:38:00 Test Item Value Reference Range Interpretation Comments Basophils (test code = 0.4 See_Comment [Aut omated message] The Basophils) system which ge nerated this result tra nsmitted reference range : <=1.0. The reference r annemarie was not used to int erpret this result as normal/abnormal . [facility] HospitalMiimqjmLRAIXPLALZ2119-09-80 02:38:00 Test Item Value Reference Range Interpretation Comments Segs-Bands # (test code = Segs-Bands #) 4.2 1.5-8.1 [facility] HospitalWvkeasaEUVWAJAZDS7911-37-75 02:38:00 Test Item Value Reference Range Interpretation Comments Monocytes (test code = Monocytes) 9.2 2.0-12.0 [facility] HospitalWtlkquuVAQMBPXAYP5699-19-16 02:38:00 Test Item Value Reference Range Interpretation Comments Monocytes # (test code 0.6 See_Comment [Aut omated message] The = Monocytes #) system which generated this result tra nsmitted reference range : <=0.8. The reference r annemarie was not used to int erpret this result as normal/abnormal . [facility] HospitalUqhcsquBICATUIHFM3034-64-63 02:38:00 Test Item Value Reference Range Interpretation Comments Eosinophils # (test code 0.1 See_Comment [A utomated message] The = Eosinophils #) system whic h generated this result tra nsmitted reference range : <=0.5. The reference r annemarie was not used to int erpret this result as normal/abnormal . [facility] HospitalGcldjfdVTHIUUHQQO3467-16-91 02:38:00 Test Item Value Reference Range Interpretation Comments Lymphocytes (test code = Lymphocytes) 26.3 20.0-40.0 [facility] HospitalFjqpxwcBMTZUBUBCG9446-99-86 02:38:00 Test Item Value Reference Range Interpretation Comments Segs (test code = Segs) 63.1 45.0-75.0 [facility] HospitalBgrvooxZTIZCUCLKB5227-32-39 02:38:00 Test Item Value Reference Range Interpretation Comments WBC (test code = WBC) 6.6 3.7-10.4 [facility] HospitalTuyaiktQTUWJVOKMT1265-01-92 02:38:00 Test Item Value Reference Range Interpretation Comments Hct (test code = Hct) 42.9 42.0-54.0 [facility] HospitalBgoblkoYYSRMOCFOQ4667-45-73 02:38:00 Test Item Value Reference Range Interpretation Comments RBC (test code = RBC) 4.86 4.70-6.10 [facility] HospitalFzfsxtjUWKBJKKPNV4261-43-41 02:38:00 Test Item Value Reference Range Interpretation Comments Hgb (test code = Hgb) 14.4 14.0-18.0 [facility] HospitalFobiyziCOHOYRHPVM9522-19-56 02:38:00 Test Item Value Reference Range Interpretation Comments MCV (test code = MCV) 88.3 80.0-94.0 [facility] HospitalKsuwnkkOEUULRGETK6911-13-29 02:38:00 Test Item Value Reference Range Interpretation Comments MCH (test code = MCH) 29.6 pg 27.0-31.0 [facility] HospitalHcceetxOKTEWJBBLK7477-75-15 02:38:00 Test Item Value Reference Range Interpretation Comments MCHC (test code = MCHC) 33.6 32.0-36.0 [facility] HospitalRrilraoPBEPWLYCPI2579-74-87 02:38:00 Test Item Value Reference Range Interpretation Comments MPV (test code = MPV) 9.4 7.4-10.4 [facility] HospitalZotcamjXTCFVAWNJM1728-11-35 02:38:00 Test Item Value Reference Range Interpretation Comments RDW (test code = RDW) 13.4 11.5-14.5 [facility] HospitalYbvorfwZUPVWTZGCM8856-84-03 02:38:00 Test Item Value Reference Range Interpretation Comments Platelet (test code = Platelet) 145 133-450 [place] [id number] 02:38:00 Test Item Value Reference Range Interpretation Comments Salicylate Lvl (test no gt See_Comment [Autom ated message] The code = Salicylate Lvl) syste m which generated this result tra nsmitted reference range : <=30.0. The reference r annemarie was not used to int erpret this result as normal/abnormal . [facility]jaljltYDZERJWPWS0784-02-50 02:38:00 Test Item Value Reference Range Interpretation Comments Acetaminoph Lvl (test code (04/06/16 8:38 PM) 10-20 = Acetaminoph Lvl) [facility] [id number] 02:38:00 Test Item Value Reference Range Interpretation Comments Influ B (test code = Negative (04/06/16 8:38 Influ B) PM) [facility] [id number] 02:38:00 Test Item Value Reference Range Interpretation Comments Influ A (test code = Negative (04/06/16 8:38 Influ A) PM) [facility] GDNMRDY5179-01-20 02:38:00 Test Item Value Reference Range Interpretation Comments Total CK (test code = Total CK) 598 12-191 [facility]2016-12-08 02:38:00 Test Item Value Reference Range Interpretation Comments eGFR (test code = eGFR) 121 [facility]2016-12-08 02:38:00 Test Item Value Reference Range Interpretation Comments Calcium Lvl (test code = Calcium Lvl) 9.2 8.5-10.5 [facility]2016-12-08 02:38:00 Test Item Value Reference Range Interpretation Comments Total Protein (test code = Total 7.6 6.4-8.4 Protein) [facility]2016-12-08 02:38:00 Test Item Value Reference Range Interpretation Comments CO2 (test code = CO2) 22 24-32 [facility]2016-12-08 02:38:00 Test Item Value Reference Range Interpretation Comments AST (test code = AST) 43 See_Comment [Auto mated message] The system which ge nerated this result transmit abdelrahman reference range : <=37. The reference range was not used to interpr et this result as gurpreet l/abnormal. [facility]2016-12-08 02:38:00 Test Item Value Reference Range Interpretation Comments Albumin Lvl (test code = Albumin Lvl) 4.4 3.5-5.0 [facility]2016-12-08 02:38:00 Test Item Value Reference Range Interpretation Comments ALT (test code = ALT) 22 See_Comment [Auto mated message] The system which ge nerated this result transmit abdelrahman reference range : <=65. The reference range was not used to interpr et this result as gurpreet l/abnormal. [facility]2016-12-08 02:38:00 Test Item Value Reference Range Interpretation Comments Chloride Lvl (test code = Chloride Lvl) 101 95-109 [facility]2016-12-08 02:38:00 Test Item Value Reference Range Interpretation Comments Creatinine Lvl (test code = Creatinine 0.81 0.50-1.40 Lvl) [facility]2016-12-08 02:38:00 Test Item Value Reference Range Interpretation Comments Sodium Lvl (test code = Sodium Lvl) 136 135-145 [facility]2016-12-08 02:38:00 Test Item Value Reference Range Interpretation Comments Potassium Lvl (test code = Potassium 4.4 3.5-5.1 Lvl) [facility]2016-12-08 02:38:00 Test Item Value Reference Range Interpretation Comments Bili Total (test code = Bili Total) 0.9 0.2-1.3 [facility]2016-12-08 02:38:00 Test Item Value Reference Range Interpretation Comments Alk Phos (test code = Alk Phos) 34 39-136 [facility]2016-12-08 02:38:00 Test Item Value Reference Range Interpretation Comments Glucose Lvl (test code = Glucose Lvl) 63 70-99 [facility]2016-12-08 02:38:00 Test Item Value Reference Range Interpretation Comments BUN (test code = BUN) 14 7-22 [facility]2016-12-08 02:38:00 Test Item Value Reference Range Interpretation Comments AGAP (test code = AGAP) 17.4 10.0-20.0 [facility]2016-12-08 02:38:00 Test Item Value Reference Range Interpretation Comments B/C Ratio (test code = B/C Ratio) 17 6-25 [facility]2016-12-08 02:38:00 Test Item Value Reference Range Interpretation Comments Globulin (test code = Globulin) 3.2 2.7-4.2 [facility]2016-12-08 02:38:00 Test Item Value Reference Range Interpretation Comments A/G Ratio (test code = A/G Ratio) 1.4 0.7-1.6 [facility] HospitalIlecpvkMWORPLZQSS5376-31-53 02:38:00 Test Item Value Reference Range Interpretation Comments Lymphocytes # (test code = Lymphocytes 1.7 1.0-5.5 #) [facility] HospitalNmhwxquEHSECFYSJP1092-70-11 02:38:00 Test Item Value Reference Range Interpretation Comments Eosinophils (test code = 1.0 See_Comment [A utomated message] The Eosinophils) system which ge nerated this result tra nsmitted reference range : <=4.0. The reference r annemarie was not used to int erpret this result as normal/abnormal . [facility] HospitalEttszvrYHZHCZCABQ0940-22-05 02:38:00 Test Item Value Reference Range Interpretation Comments Basophils (test code = 0.4 See_Comment [Aut omated message] The Basophils) system which ge nerated this result tra nsmitted reference range : <=1.0. The reference r annemarie was not used to int erpret this result as normal/abnormal . [facility] HospitalYorpeboIAGVLHGTJO3765-71-50 02:38:00 Test Item Value Reference Range Interpretation Comments Segs-Bands # (test code = Segs-Bands #) 4.2 1.5-8.1 [facility] HospitalWqsngezEOGAJMDVHY5233-01-81 02:38:00 Test Item Value Reference Range Interpretation Comments Monocytes (test code = Monocytes) 9.2 2.0-12.0 [facility] HospitalLtgmhemVWIJIIUWGI2941-14-42 02:38:00 Test Item Value Reference Range Interpretation Comments Monocytes # (test code 0.6 See_Comment [Aut omated message] The = Monocytes #) system which generated this result tra nsmitted reference range : <=0.8. The reference r annemarie was not used to int erpret this result as normal/abnormal . [facility] HospitalPalbnopZDGZRGYRBB0077-38-21 02:38:00 Test Item Value Reference Range Interpretation Comments Eosinophils # (test code 0.1 See_Comment [A utomated message] The = Eosinophils #) system whic h generated this result tra nsmitted reference range : <=0.5. The reference r annemarie was not used to int erpret this result as normal/abnormal . [facility] HospitalLbbtzfsGWYRIIQDAC5089-56-05 02:38:00 Test Item Value Reference Range Interpretation Comments Lymphocytes (test code = Lymphocytes) 26.3 20.0-40.0 [facility] HospitalOhhjqmnQOCSSOWTFO0187-05-63 02:38:00 Test Item Value Reference Range Interpretation Comments Segs (test code = Segs) 63.1 45.0-75.0 [facility] HospitalFvcuorzPNTXURVKVG8257-38-19 02:38:00 Test Item Value Reference Range Interpretation Comments WBC (test code = WBC) 6.6 3.7-10.4 [facility] HospitalXbwbnzxAWTTUNUOQQ0542-73-81 02:38:00 Test Item Value Reference Range Interpretation Comments Hct (test code = Hct) 42.9 42.0-54.0 [facility]HvqhbxmZCDBBCITPO1065-18-89 02:38:00 Test Item Value Reference Range Interpretation Comments RBC (test code = RBC) 4.86 4.70-6.10 [facility] HospitalFwshsgzFDROKLMJMA0002-30-91 02:38:00 Test Item Value Reference Range Interpretation Comments Hgb (test code = Hgb) 14.4 14.0-18.0 [facility] HospitalXtzciinLPSHQLYWRS9830-15-05 02:38:00 Test Item Value Reference Range Interpretation Comments MCV (test code = MCV) 88.3 80.0-94.0 [facility] HospitalJchwvvgHKTKXNXSUY4848-94-03 02:38:00 Test Item Value Reference Range Interpretation Comments MCH (test code = MCH) 29.6 pg 27.0-31.0 [facility] HospitalKauqrpdXPKJMLKGCF7195-41-41 02:38:00 Test Item Value Reference Range Interpretation Comments MCHC (test code = MCHC) 33.6 32.0-36.0 [facility] HospitalEljarcdASLDQOSAKI3255-53-49 02:38:00 Test Item Value Reference Range Interpretation Comments MPV (test code = MPV) 9.4 7.4-10.4 [facility] HospitalPdgopbjHXAIHFMNPB5584-94-60 02:38:00 Test Item Value Reference Range Interpretation Comments RDW (test code = RDW) 13.4 11.5-14.5 [facility] HospitalZkndtflEUEIHOFBXY3267-21-25 02:38:00 Test Item Value Reference Range Interpretation Comments Platelet (test code = Platelet) 145 133-450 [facility]GsxflwgWRSUMGCBQS2488-10-75 02:38:00 Test Item Value Reference Range Interpretation Comments Salicylate Lvl (test no gt See_Comment [Autom ated message] The code = Salicylate Lvl) syste m which generated this result tra nsmitted reference range : <=30.0. The reference r annemarie was not used to int erpret this result as normal/abnormal . [facility]DifnqabTWPIRCMTOS5270-64-74 02:38:00 Test Item Value Reference Range Interpretation Comments Acetaminoph Lvl (test code (04/06/16 8:38 PM) 10-20 = Acetaminoph Lvl) [facility] [id number] 02:38:00 Test Item Value Reference Range Interpretation Comments Influ B (test code = Negative (04/06/16 8:38 Influ B) PM) [facility] [id number] 02:38:00 Test Item Value Reference Range Interpretation Comments Influ A (test code = Negative (04/06/16 8:38 Influ A) PM) [facility] [id number] 02:38:00 Test Item Value Reference Range Interpretation Comments Total CK (test code = Total CK) 598 12-191 [facility] AustinIMshoppingCHEM PHVWS4597-86-31 02:38:00 Test Item Value Reference Range Interpretation Comments eGFR (test code = eGFR) 121 [facility] QZCRW9455-08-05 02:38:00 Test Item Value Reference Range Interpretation Comments Calcium Lvl (test code = Calcium Lvl) 9.2 8.5-10.5 [facility] VLYQX2466-02-00 02:38:00 Test Item Value Reference Range Interpretation Comments Total Protein (test code = Total 7.6 6.4-8.4 Protein) [facility] [id number] 02:38:00 Test Item Value Reference Range Interpretation Comments CO2 (test code = CO2) 22 24-32 [facility] [id number] 02:38:00 Test Item Value Reference Range Interpretation Comments AST (test code = AST) 43 See_Comment [Auto mated message] The system which ge nerated this result transmit abdelrahman reference range : <=37. The reference range was not used to interpr et this result as gurpreet l/abnormal. [facility] [id number] 02:38:00 Test Item Value Reference Range Interpretation Comments Albumin Lvl (test code = Albumin Lvl) 4.4 3.5-5.0 [facility] [id number] 02:38:00 Test Item Value Reference Range Interpretation Comments ALT (test code = ALT) 22 See_Comment [Auto mated message] The system which ge nerated this result transmit abdelrahman reference range : <=65. The reference range was not used to interpr et this result as gurpreet l/abnormal. [facility] [id number] 02:38:00 Test Item Value Reference Range Interpretation Comments Chloride Lvl (test code = Chloride Lvl) 101 95-109 [facility] [id number] 02:38:00 Test Item Value Reference Range Interpretation Comments Creatinine Lvl (test code = Creatinine 0.81 0.50-1.40 Lvl) [facility]2016-12-08 02:38:00 Test Item Value Reference Range Interpretation Comments Sodium Lvl (test code = Sodium Lvl) 136 135-145 [facility]2016-12-08 02:38:00 Test Item Value Reference Range Interpretation Comments Potassium Lvl (test code = Potassium 4.4 3.5-5.1 Lvl) [facility]2016-12-08 02:38:00 Test Item Value Reference Range Interpretation Comments Bili Total (test code = Bili Total) 0.9 0.2-1.3 [facility]2016-12-08 02:38:00 Test Item Value Reference Range Interpretation Comments Alk Phos (test code = Alk Phos) 34 39-136 [facility]2016-12-08 02:38:00 Test Item Value Reference Range Interpretation Comments Glucose Lvl (test code = Glucose Lvl) 63 70-99 [facility]2016-12-08 02:38:00 Test Item Value Reference Range Interpretation Comments BUN (test code = BUN) 14 7-22 [facility]2016-12-08 02:38:00 Test Item Value Reference Range Interpretation Comments AGAP (test code = AGAP) 17.4 10.0-20.0 [facility]2016-12-08 02:38:00 Test Item Value Reference Range Interpretation Comments B/C Ratio (test code = B/C Ratio) 17 6-25 [facility]2016-12-08 02:38:00 Test Item Value Reference Range Interpretation Comments Globulin (test code = Globulin) 3.2 2.7-4.2 [facility]2016-12-08 02:38:00 Test Item Value Reference Range Interpretation Comments A/G Ratio (test code = A/G Ratio) 1.4 0.7-1.6 [facility] HospitalHunmdhrKNITKMTXAJ0765-48-15 02:38:00 Test Item Value Reference Range Interpretation Comments Lymphocytes # (test code = Lymphocytes 1.7 1.0-5.5 #) [facility] HospitalHrgyusiPGXVYWLTSY3697-30-50 02:38:00 Test Item Value Reference Range Interpretation Comments Eosinophils (test code = 1.0 See_Comment [A utomated message] The Eosinophils) system which ge nerated this result tra nsmitted reference range : <=4.0. The reference r annemarie was not used to int erpret this result as normal/abnormal . [facility] HospitalSyyghvfMDSQSXKXGA8590-13-39 02:38:00 Test Item Value Reference Range Interpretation Comments Basophils (test code = 0.4 See_Comment [Aut omated message] The Basophils) system which ge nerated this result tra nsmitted reference range : <=1.0. The reference r annemarie was not used to int erpret this result as normal/abnormal . [facility] HospitalOouxalgXJXPHDEJVA5429-97-44 02:38:00 Test Item Value Reference Range Interpretation Comments Segs-Bands # (test code = Segs-Bands #) 4.2 1.5-8.1 [facility] HospitalCcupferJTMBUAXVZB1617-02-97 02:38:00 Test Item Value Reference Range Interpretation Comments Monocytes (test code = Monocytes) 9.2 2.0-12.0 [facility] HospitalAxzumzsMJEEOPQZGP0178-27-16 02:38:00 Test Item Value Reference Range Interpretation Comments Monocytes # (test code 0.6 See_Comment [Aut omated message] The = Monocytes #) system which generated this result tra nsmitted reference range : <=0.8. The reference r annemarie was not used to int erpret this result as normal/abnormal . [facility] HospitalWswldjtWCASHNORAX8663-84-36 02:38:00 Test Item Value Reference Range Interpretation Comments Eosinophils # (test code 0.1 See_Comment [A utomated message] The = Eosinophils #) system whic h generated this result tra nsmitted reference range : <=0.5. The reference r annemarie was not used to int erpret this result as normal/abnormal . [facility] HospitalYcjxlmlNDCFEZWHCL6234-03-85 02:38:00 Test Item Value Reference Range Interpretation Comments Lymphocytes (test code = Lymphocytes) 26.3 20.0-40.0 [facility] HospitalYnbyebpKWDGXLDYQP7831-77-44 02:38:00 Test Item Value Reference Range Interpretation Comments Segs (test code = Segs) 63.1 45.0-75.0 [facility] HospitalXwzffoaSGDECPAOKP2347-99-92 02:38:00 Test Item Value Reference Range Interpretation Comments WBC (test code = WBC) 6.6 3.7-10.4 [facility] HospitalWjvripvSYKEIQQXTR3735-82-48 02:38:00 Test Item Value Reference Range Interpretation Comments Hct (test code = Hct) 42.9 42.0-54.0 [facility] HospitalFrawzoxKUDIICZFED9525-81-22 02:38:00 Test Item Value Reference Range Interpretation Comments RBC (test code = RBC) 4.86 4.70-6.10 [facility] HospitalPwfjkioDPRTQLCJES3106-34-78 02:38:00 Test Item Value Reference Range Interpretation Comments Hgb (test code = Hgb) 14.4 14.0-18.0 [facility] HospitalLazoamxIBQPFHLUBH6272-32-70 02:38:00 Test Item Value Reference Range Interpretation Comments MCV (test code = MCV) 88.3 80.0-94.0 [facility] HospitalQnkjwrxMDNQNIUXNS7796-11-45 02:38:00 Test Item Value Reference Range Interpretation Comments MCH (test code = MCH) 29.6 pg 27.0-31.0 [facility] HospitalMwazqpoHHSMWTDBOA7739-43-74 02:38:00 Test Item Value Reference Range Interpretation Comments MCHC (test code = MCHC) 33.6 32.0-36.0 [facility] HospitalXseqzqyJIHQIHOFZT4628-45-95 02:38:00 Test Item Value Reference Range Interpretation Comments MPV (test code = MPV) 9.4 7.4-10.4 [facility] HospitalKutzoyjIAGOWVSTPM0428-49-37 02:38:00 Test Item Value Reference Range Interpretation Comments RDW (test code = RDW) 13.4 11.5-14.5 [facility] HospitalFxlmamgRXCJVFMVKR2527-21-66 02:38:00 Test Item Value Reference Range Interpretation Comments Platelet (test code = Platelet) 145 133-450 [place] [id number] 02:38:00 Test Item Value Reference Range Interpretation Comments Salicylate Lvl (test no gt See_Comment [Autom ated message] The code = Salicylate Lvl) syste m which generated this result tra nsmitted reference range : <=30.0. The reference r annemarie was not used to int erpret this result as normal/abnormal . [place] [id number] 02:38:00 Test Item Value Reference Range Interpretation Comments Acetaminoph Lvl (test code (04/06/16 8:38 PM) 10-20 = Acetaminoph Lvl) [facility] JPAYUQQC9022-[facility]-36 02:38:00 Test Item Value Reference Range Interpretation Comments Influ B (test code = Negative (04/06/16 8:38 Influ B) PM) [facility] [id number] 02:38:00 Test Item Value Reference Range Interpretation Comments Influ A (test code = Negative (04/06/16 8:38 Influ A) PM) [facility] [id number] 02:38:00 Test Item Value Reference Range Interpretation Comments Total CK (test code = Total CK) 598 12-191 [facility] [id number] 02:38:00 Test Item Value Reference Range Interpretation Comments eGFR (test code = eGFR) 121 [facility] [id number] 02:38:00 Test Item Value Reference Range Interpretation Comments Calcium Lvl (test code = Calcium Lvl) 9.2 8.5-10.5 [facility] [id number] 02:38:00 Test Item Value Reference Range Interpretation Comments Total Protein (test code = Total 7.6 6.4-8.4 Protein) [facility] [id number] 02:38:00 Test Item Value Reference Range Interpretation Comments CO2 (test code = CO2) 22 24-32 [facility] [id number] 02:38:00 Test Item Value Reference Range Interpretation Comments AST (test code = AST) 43 See_Comment [Auto mated message] The system which ge nerated this result transmit abdelrahman reference range : <=37. The reference range was not used to interpr et this result as gurpreet l/abnormal. [facility] [id number] 02:38:00 Test Item Value Reference Range Interpretation Comments Albumin Lvl (test code = Albumin Lvl) 4.4 3.5-5.0 [facility] [id number] 02:38:00 Test Item Value Reference Range Interpretation Comments ALT (test code = ALT) 22 See_Comment [Auto mated message] The system which ge nerated this result transmit abdelrahman reference range : <=65. The reference range was not used to interpr et this result as gurpreet l/abnormal. [facility] UAWSY5910-58-30 02:38:00 Test Item Value Reference Range Interpretation Comments Chloride Lvl (test code = Chloride Lvl) 101 95-109 [facility]2016-12-08 02:38:00 Test Item Value Reference Range Interpretation Comments Creatinine Lvl (test code = Creatinine 0.81 0.50-1.40 Lvl) [facility]2016-12-08 02:38:00 Test Item Value Reference Range Interpretation Comments Sodium Lvl (test code = Sodium Lvl) 136 135-145 [facility]2016-12-08 02:38:00 Test Item Value Reference Range Interpretation Comments Potassium Lvl (test code = Potassium 4.4 3.5-5.1 Lvl) [facility]2016-12-08 02:38:00 Test Item Value Reference Range Interpretation Comments Bili Total (test code = Bili Total) 0.9 0.2-1.3 [facility]2016-12-08 02:38:00 Test Item Value Reference Range Interpretation Comments Alk Phos (test code = Alk Phos) 34 39-136 [facility]2016-12-08 02:38:00 Test Item Value Reference Range Interpretation Comments Glucose Lvl (test code = Glucose Lvl) 63 70-99 [facility]2016-12-08 02:38:00 Test Item Value Reference Range Interpretation Comments BUN (test code = BUN) 14 7-22 [facility]2016-12-08 02:38:00 Test Item Value Reference Range Interpretation Comments AGAP (test code = AGAP) 17.4 10.0-20.0 [facility]2016-12-08 02:38:00 Test Item Value Reference Range Interpretation Comments B/C Ratio (test code = B/C Ratio) 17 6-25 [facility]2016-12-08 02:38:00 Test Item Value Reference Range Interpretation Comments Globulin (test code = Globulin) 3.2 2.7-4.2 [facility]2016-12-08 02:38:00 Test Item Value Reference Range Interpretation Comments A/G Ratio (test code = A/G Ratio) 1.4 0.7-1.6 [facility] HospitalNrtdfalNDFJVVJRYO0667-29-61 02:38:00 Test Item Value Reference Range Interpretation Comments Lymphocytes # (test code = Lymphocytes 1.7 1.0-5.5 #) [facility] HospitalExaguvkGFLOPOVRFY1968-67-35 02:38:00 Test Item Value Reference Range Interpretation Comments Eosinophils (test code = 1.0 See_Comment [A utomated message] The Eosinophils) system which ge nerated this result tra nsmitted reference range : <=4.0. The reference r annemarie was not used to int erpret this result as normal/abnormal . [facility] HospitalSjydjhgXWLFFJPHLV2013-08-93 02:38:00 Test Item Value Reference Range Interpretation Comments Basophils (test code = 0.4 See_Comment [Aut omated message] The Basophils) system which ge nerated this result tra nsmitted reference range : <=1.0. The reference r annemarie was not used to int erpret this result as normal/abnormal . [facility] HospitalVmiukffNAZJWXMNTU7971-22-99 02:38:00 Test Item Value Reference Range Interpretation Comments Segs-Bands # (test code = Segs-Bands #) 4.2 1.5-8.1 [facility] HospitalXowbtmyXSYFXRIDZT0153-93-63 02:38:00 Test Item Value Reference Range Interpretation Comments Monocytes (test code = Monocytes) 9.2 2.0-12.0 [facility] HospitalEqpxcnwPNXBRNJAMY1851-83-90 02:38:00 Test Item Value Reference Range Interpretation Comments Monocytes # (test code 0.6 See_Comment [Aut omated message] The = Monocytes #) system which generated this result tra nsmitted reference range : <=0.8. The reference r annemarie was not used to int erpret this result as normal/abnormal . [facility] HospitalUswsqyuTMDWAXYGDD4929-28-43 02:38:00 Test Item Value Reference Range Interpretation Comments Eosinophils # (test code 0.1 See_Comment [A utomated message] The = Eosinophils #) system whic h generated this result tra nsmitted reference range : <=0.5. The reference r annemarie was not used to int erpret this result as normal/abnormal . [facility] HospitalPcjicpyFWKYIJALGE3786-71-67 02:38:00 Test Item Value Reference Range Interpretation Comments Lymphocytes (test code = Lymphocytes) 26.3 20.0-40.0 [facility] HospitalCxdiepvKSPHMOTBEP6116-28-52 02:38:00 Test Item Value Reference Range Interpretation Comments Segs (test code = Segs) 63.1 45.0-75.0 [facility] HospitalYoiopanYKIZQDNGTD3602-92-24 02:38:00 Test Item Value Reference Range Interpretation Comments WBC (test code = WBC) 6.6 3.7-10.4 [facility] HospitalHgzaajyUPEAHPCMIR4928-69-48 02:38:00 Test Item Value Reference Range Interpretation Comments Hct (test code = Hct) 42.9 42.0-54.0 [facility] HospitalWtiiivrWMYQRHYKQC3534-61-60 02:38:00 Test Item Value Reference Range Interpretation Comments RBC (test code = RBC) 4.86 4.70-6.10 [facility] HospitalDdwzgluHWTBQGZSZK6583-47-59 02:38:00 Test Item Value Reference Range Interpretation Comments Hgb (test code = Hgb) 14.4 14.0-18.0 [facility] HospitalUqojuejKMICSIYIIO4959-49-48 02:38:00 Test Item Value Reference Range Interpretation Comments MCV (test code = MCV) 88.3 80.0-94.0 [facility] HospitalPkpadzgPJKNEQGOJM7098-42-73 02:38:00 Test Item Value Reference Range Interpretation Comments MCH (test code = MCH) 29.6 pg 27.0-31.0 [facility] HospitalZmacuraIOVNZRVRCT6289-06-83 02:38:00 Test Item Value Reference Range Interpretation Comments MCHC (test code = MCHC) 33.6 32.0-36.0 [facility] HospitalDwgljymGFHVIVZKFE0805-47-02 02:38:00 Test Item Value Reference Range Interpretation Comments MPV (test code = MPV) 9.4 7.4-10.4 [facility] HospitalWycaxfnYVPUGBBWGE3559-96-45 02:38:00 Test Item Value Reference Range Interpretation Comments RDW (test code = RDW) 13.4 11.5-14.5 [facility] HospitalEuzvjldWGQCREHAOM2092-09-57 02:38:00 Test Item Value Reference Range Interpretation Comments Platelet (test code = Platelet) 145 133-450 [facility]jjfqjbLSLAXFKZHY2415-91-88 02:38:00 Test Item Value Reference Range Interpretation Comments Salicylate Lvl (test no gt See_Comment [Autom ated message] The code = Salicylate Lvl) syste m which generated this result tra nsmitted reference range : <=30.0. The reference r annemarie was not used to int erpret this result as normal/abnormal . [facility] UqsqcxnIKLQWVFNOB2234-84-36 02:38:00 Test Item Value Reference Range Interpretation Comments Acetaminoph Lvl (test code (04/06/16 8:38 PM) 10-20 = Acetaminoph Lvl) [facility] JOJOWYKB4862-74-60 02:38:00 Test Item Value Reference Range Interpretation Comments Influ B (test code = Negative (04/06/16 8:38 Influ B) PM) [facility] [id number] 02:38:00 Test Item Value Reference Range Interpretation Comments Influ A (test code = Negative (04/06/16 8:38 Influ A) PM) [facility] VHOBUWO7547-86-60 02:38:00 Test Item Value Reference Range Interpretation Comments Total CK (test code = Total CK) 598 12-191 [facility] Ka[place]100CHEM OHFUC9460-14-30 02:38:00 Test Item Value Reference Range Interpretation Comments eGFR (test code = eGFR) 121 [facility] [place]100[facility]M [id number] 02:38:00 Test Item Value Reference Range Interpretation Comments Calcium Lvl (test code = Calcium Lvl) 9.2 8.5-10.5 [facility] [employer] FXXUX6913-41-07 02:38:00 Test Item Value Reference Range Interpretation Comments Total Protein (test code = Total 7.6 6.4-8.4 Protein) [facility] [place]100[employer] FETQC3477-78-69 02:38:00 Test Item Value Reference Range Interpretation Comments CO2 (test code = CO2) 22 24-32 [facility] [employer]annCHE[facility] [id number] 02:38:00 Test Item Value Reference Range Interpretation Comments AST (test code = AST) 43 See_Comment [Auto mated message] The system which ge nerated this result transmit abdelrahman reference range : <=37. The reference range was not used to interpr et this result as gurpreet l/abnormal. [facility] [id number] 02:38:00 Test Item Value Reference Range Interpretation Comments Albumin Lvl (test code = Albumin Lvl) 4.4 3.5-5.0 [facility] [id number] 02:38:00 Test Item Value Reference Range Interpretation Comments ALT (test code = ALT) 22 See_Comment [Auto mated message] The system which ge nerated this result transmit abdelrahman reference range : <=65. The reference range was not used to interpr et this result as gurpreet l/abnormal. [facility]2016-12-08 02:38:00 Test Item Value Reference Range Interpretation Comments Chloride Lvl (test code = Chloride Lvl) 101 95-109 [facility]2016-12-08 02:38:00 Test Item Value Reference Range Interpretation Comments Creatinine Lvl (test code = Creatinine 0.81 0.50-1.40 Lvl) [facility]2016-12-08 02:38:00 Test Item Value Reference Range Interpretation Comments Sodium Lvl (test code = Sodium Lvl) 136 135-145 [facility]2016-12-08 02:38:00 Test Item Value Reference Range Interpretation Comments Potassium Lvl (test code = Potassium 4.4 3.5-5.1 Lvl) [facility]2016-12-08 02:38:00 Test Item Value Reference Range Interpretation Comments Bili Total (test code = Bili Total) 0.9 0.2-1.3 [facility]2016-12-08 02:38:00 Test Item Value Reference Range Interpretation Comments Alk Phos (test code = Alk Phos) 34 39-136 [facility]2016-12-08 02:38:00 Test Item Value Reference Range Interpretation Comments Glucose Lvl (test code = Glucose Lvl) 63 70-99 [facility]2016-12-08 02:38:00 Test Item Value Reference Range Interpretation Comments BUN (test code = BUN) 14 7-22 [facility]2016-12-08 02:38:00 Test Item Value Reference Range Interpretation Comments AGAP (test code = AGAP) 17.4 10.0-20.0 [facility]2016-12-08 02:38:00 Test Item Value Reference Range Interpretation Comments B/C Ratio (test code = B/C Ratio) 17 6-25 [facility]2016-12-08 02:38:00 Test Item Value Reference Range Interpretation Comments Globulin (test code = Globulin) 3.2 2.7-4.2 [facility]2016-12-08 02:38:00 Test Item Value Reference Range Interpretation Comments A/G Ratio (test code = A/G Ratio) 1.4 0.7-1.6 [facility] HospitalNjmnfjzEESVIYZEAU2368-69-39 02:38:00 Test Item Value Reference Range Interpretation Comments Lymphocytes # (test code = Lymphocytes 1.7 1.0-5.5 #) [facility] HospitalXpponjpHJCNKAKAXL1669-51-42 02:38:00 Test Item Value Reference Range Interpretation Comments Eosinophils (test code = 1.0 See_Comment [A utomated message] The Eosinophils) system which ge nerated this result tra nsmitted reference range : <=4.0. The reference r annemarie was not used to int erpret this result as normal/abnormal . [facility] HospitalKbzgmlvHDLMHUYWOQ1654-43-59 02:38:00 Test Item Value Reference Range Interpretation Comments Basophils (test code = 0.4 See_Comment [Aut omated message] The Basophils) system which ge nerated this result tra nsmitted reference range : <=1.0. The reference r annemarie was not used to int erpret this result as normal/abnormal . [facility] HospitalAzakedqPORNZGXPJE3486-48-43 02:38:00 Test Item Value Reference Range Interpretation Comments Segs-Bands # (test code = Segs-Bands #) 4.2 1.5-8.1 [facility] HospitalMurjkunEQVZTDOGYM3338-23-83 02:38:00 Test Item Value Reference Range Interpretation Comments Monocytes (test code = Monocytes) 9.2 2.0-12.0 [facility] HospitalShxqllaWLZFKCCHSP0674-26-10 02:38:00 Test Item Value Reference Range Interpretation Comments Monocytes # (test code 0.6 See_Comment [Aut omated message] The = Monocytes #) system which generated this result tra nsmitted reference range : <=0.8. The reference r annemarie was not used to int erpret this result as normal/abnormal . [facility] HospitalStyncdhSPFQCCIKPT8509-58-40 02:38:00 Test Item Value Reference Range Interpretation Comments Eosinophils # (test code 0.1 See_Comment [A utomated message] The = Eosinophils #) system whic h generated this result tra nsmitted reference range : <=0.5. The reference r annemarie was not used to int erpret this result as normal/abnormal . [facility] HospitalChnhwweJHQYSTMVVU7993-44-95 02:38:00 Test Item Value Reference Range Interpretation Comments Lymphocytes (test code = Lymphocytes) 26.3 20.0-40.0 [facility] HospitalExgpnanCEOPMXBMMQ6431-85-84 02:38:00 Test Item Value Reference Range Interpretation Comments Segs (test code = Segs) 63.1 45.0-75.0 [facility] HospitalMkxxzhxKCVCTFGARM1307-98-38 02:38:00 Test Item Value Reference Range Interpretation Comments WBC (test code = WBC) 6.6 3.7-10.4 [facility] HospitalUfwdsfpOIXDJCVBNT0062-76-56 02:38:00 Test Item Value Reference Range Interpretation Comments Hct (test code = Hct) 42.9 42.0-54.0 [facility] HospitalBuwbqgaCQSVCRWOFD6704-05-94 02:38:00 Test Item Value Reference Range Interpretation Comments RBC (test code = RBC) 4.86 4.70-6.10 [facility] HospitalDmrhpqhUMGQHCPLIW4710-70-59 02:38:00 Test Item Value Reference Range Interpretation Comments Hgb (test code = Hgb) 14.4 14.0-18.0 [facility] HospitalFroowjhEXLPRLZWVK4526-73-68 02:38:00 Test Item Value Reference Range Interpretation Comments MCV (test code = MCV) 88.3 80.0-94.0 [facility] HospitalNtyluvkLUOXEBCSGK9376-31-26 02:38:00 Test Item Value Reference Range Interpretation Comments MCH (test code = MCH) 29.6 pg 27.0-31.0 [facility] HospitalYrrgzlhRIXUBYWFDW8249-72-26 02:38:00 Test Item Value Reference Range Interpretation Comments MCHC (test code = MCHC) 33.6 32.0-36.0 [facility] HospitalTwngmhrDXONICHUUS5036-08-60 02:38:00 Test Item Value Reference Range Interpretation Comments MPV (test code = MPV) 9.4 7.4-10.4 [facility] HospitalPhsewhiCSQHAXWUUA1491-30-76 02:38:00 Test Item Value Reference Range Interpretation Comments RDW (test code = RDW) 13.4 11.5-14.5 [facility] HospitalTwsusmrQHWZTVKFEU4143-68-48 02:38:00 Test Item Value Reference Range Interpretation Comments Platelet (test code = Platelet) 145 133-450 [facility]RnlvfomKWAIIWJZMW2234-16-89 02:38:00 Test Item Value Reference Range Interpretation Comments Salicylate Lvl (test no gt See_Comment [Autom ated message] The code = Salicylate Lvl) syste m which generated this result tra nsmitted reference range : <=30.0. The reference r annemarie was not used to int erpret this result as normal/abnormal . [facility]viewEnfrixtASUENUUKIS5267-13-13 02:38:00 Test Item Value Reference Range Interpretation Comments Acetaminoph Lvl (test code (04/06/16 8:38 PM) 10-20 = Acetaminoph Lvl) [facility] INNDXAAW6590-65-80 02:38:00 Test Item Value Reference Range Interpretation Comments Influ B (test code = Negative (04/06/16 8:38 Influ B) PM) [facility] VAEFUSDP7824-51-37 02:38:00 Test Item Value Reference Range Interpretation Comments Influ A (test code = Negative (04/06/16 8:38 Influ A) PM) [facility]YicvnboGXZIGTHWD2356-31-74 06:42:00 Test Item Value Reference Range Interpretation Comments B/C Ratio (test code = B/C Ratio) 8 6-25 N [facility] HospitalBfljbilBJMAYYPNI0858-52-38 06:42:00 Test Item Value Reference Range Interpretation Comments Globulin (test code = Globulin) 2.5 2.0-4.0 N [facility] HospitalLizyfelPSSXUDCFA0022-49-57 06:42:00 Test Item Value Reference Range Interpretation Comments AGAP (test code = AGAP) 16.9 10.0-20.0 N [facility] HospitalYdlaeqmLHHXEUHXW2748-32-77 06:42:00 Test Item Value Reference Range Interpretation Comments A/G Ratio (test code = A/G Ratio) 1.6 0.7-1.6 N [facility] HospitalYwrtzqvUZSXCZLFC8480-92-80 06:42:00 Test Item Value Reference Range Interpretation Comments eGFR (test code = eGFR) 105 [facility] HospitalHrrmwboBCGEEVOMC5045-40-46 06:42:00 Test Item Value Reference Range Interpretation Comments Glucose Lvl (test code = Glucose Lvl) 109 70-99 H [facility] HospitalSexpflsNFBRNHRGB8036-27-25 06:42:00 Test Item Value Reference Range Interpretation Comments ALT (test code = ALT) 26 See_Comment N [Auto mated message] The system which ge nerated this result transmit abdelrahman reference range : <=65. The reference range was not used to interpr et this result as gurpreet l/abnormal. [facility] HospitalHzzykgvTZBOBURSV4109-84-33 06:42:00 Test Item Value Reference Range Interpretation Comments Albumin Lvl (test code = Albumin Lvl) 3.9 3.5-5.0 N [facility] HospitalJmjgmpdTSWLMRWVV2296-41-89 06:42:00 Test Item Value Reference Range Interpretation Comments Alk Phos (test code = Alk Phos) 47 39-136 N [facility] HospitalLrmxgltMMLNHMYKS8769-48-69 06:42:00 Test Item Value Reference Range Interpretation Comments Total Protein (test code = Total 6.4 6.4-8.4 N Protein) [facility] HospitalKboxwweCVGDMFDRU0712-84-11 06:42:00 Test Item Value Reference Range Interpretation Comments AST (test code = AST) 31 See_Comment N [Auto mated message] The system which ge nerated this result transmit abdelrahman reference range : <=37. The reference range was not used to interpr et this result as gurpreet l/abnormal. [facility] HospitalCrwemleEDLISODNW9843-24-42 06:42:00 Test Item Value Reference Range Interpretation Comments Calcium Lvl (test code = Calcium Lvl) 9.0 8.5-10.5 N [facility] HospitalPfvymrdGSOZMJKKJ7341-10-44 06:42:00 Test Item Value Reference Range Interpretation Comments Bili Total (test code = Bili Total) 0.4 0.2-1.3 N [facility] HospitalWxtorvuSEDXRMNQK0010-10-44 06:42:00 Test Item Value Reference Range Interpretation Comments Chloride Lvl (test code = Chloride Lvl) 104 95-109 N [facility] HospitalLjncsuiDAIMACSLD2129-72-48 06:42:00 Test Item Value Reference Range Interpretation Comments CO2 (test code = CO2) 24 24-32 N [facility] HospitalKbnfakaPHTRWTJSE7863-90-64 06:42:00 Test Item Value Reference Range Interpretation Comments Sodium Lvl (test code = Sodium Lvl) 141 135-145 N [facility] HospitalZicojdtQNEGPDKBW7836-58-59 06:42:00 Test Item Value Reference Range Interpretation Comments Potassium Lvl (test code = Potassium 3.9 3.5-5.1 N Lvl) [facility] HospitalQovpmkoJPHMEJISK9521-28-50 06:42:00 Test Item Value Reference Range Interpretation Comments BUN (test code = BUN) 8 7-22 N [facility] HospitalTavkdmjJDASICQOK3133-42-47 06:42:00 Test Item Value Reference Range Interpretation Comments Creatinine Lvl (test code = Creatinine 1.0 0.5-1.4 N Lvl) [facility] HospitalPtcwgffRINLRWQNSV4201-88-44 06:42:00 Test Item Value Reference Range Interpretation Comments MCH (test code = MCH) 30.2 pg 27.0-31.0 N [facility] HospitalNishatqZUYDEMOPYX1486-78-05 06:42:00 Test Item Value Reference Range Interpretation Comments Platelet (test code = Platelet) 134 133-450 N [facility] HospitalOfzfbzaVEIELGLKEZ9004-77-67 06:42:00 Test Item Value Reference Range Interpretation Comments MPV (test code = MPV) 10.1 7.4-10.4 N [facility] HospitalLuvrvuiNFIWVDWVIS5425-60-63 06:42:00 Test Item Value Reference Range Interpretation Comments RDW (test code = RDW) 13.4 11.5-14.5 N [facility] HospitalGsvukknZIYOOMXBTG9420-42-32 06:42:00 Test Item Value Reference Range Interpretation Comments Hct (test code = Hct) 39.4 42.0-54.0 L [facility] HospitalBlutwhdXFJZKJDVMX3195-13-36 06:42:00 Test Item Value Reference Range Interpretation Comments MCV (test code = MCV) 89.5 80.0-94.0 N [facility] HospitalTnxrauhBVYMVILPIW5985-52-21 06:42:00 Test Item Value Reference Range Interpretation Comments Hgb (test code = Hgb) 13.3 14.0-18.0 L [facility] HospitalNqyhfxcBVUJZHXGBO8246-30-80 06:42:00 Test Item Value Reference Range Interpretation Comments MCHC (test code = MCHC) 33.7 32.0-36.0 N [facility] HospitalWgrfskaPDDLAXIFBE2998-99-60 06:42:00 Test Item Value Reference Range Interpretation Comments WBC (test code = WBC) 12.5 3.7-10.4 H [facility] HospitalGsjuhstCDMMFZQTYJ0094-60-55 06:42:00 Test Item Value Reference Range Interpretation Comments RBC (test code = RBC) 4.40 4.70-6.10 L [facility] HospitalOkcawrkKTSRIGJCUY1144-06-74 06:42:00 Test Item Value Reference Range Interpretation Comments Lymphocytes (test code = Lymphocytes) 9.4 20.0-40.0 L [facility] HospitalYohpiubWHNUWRJINP2940-26-85 06:42:00 Test Item Value Reference Range Interpretation Comments Monocytes (test code = Monocytes) 10.8 2.0-12.0 N [facility] HospitalIgnntwnUUQALGRNXE3658-74-68 06:42:00 Test Item Value Reference Range Interpretation Comments Segs (test code = Segs) 79.6 45.0-75.0 H [facility] HospitalHqpsqtsSWKKGLSPDR3334-14-29 06:42:00 Test Item Value Reference Range Interpretation Comments Eosinophils (test code = 0.1 See_Comment N [A utomated message] The Eosinophils) system which ge nerated this result tra nsmitted reference range : <=4.0. The reference r annemarie was not used to int erpret this result as normal/abnormal . [facility] HospitalMxjhqkuFMSTQTUKLO5610-76-10 06:42:00 Test Item Value Reference Range Interpretation Comments Basophils (test code = 0.1 See_Comment N [Aut omated message] The Basophils) system which ge nerated this result tra nsmitted reference range : <=1.0. The reference r annemarie was not used to int erpret this result as normal/abnormal . [facility] HospitalLhvuyqhTIQRSLMCPP7766-79-79 06:42:00 Test Item Value Reference Range Interpretation Comments Segs-Bands # (test code = Segs-Bands #) 9.9 1.5-8.1 H [facility] HospitalLouhkjgNKTZALVUJY5662-01-85 06:42:00 Test Item Value Reference Range Interpretation Comments Lymphocytes # (test code = Lymphocytes 1.2 1.0-5.5 N #) [facility] HospitalRepsrzbLJYBPTVMTE0786-89-78 06:42:00 Test Item Value Reference Range Interpretation Comments Monocytes # (test code 1.3 See_Comment H [Aut omated message] The = Monocytes #) system which generated this result tra nsmitted reference range : <=0.8. The reference r annemarie was not used to int erpret this result as normal/abnormal . [facility] HospitalCczhlwiBCWAOAWPM9152-13-23 06:42:00 Test Item Value Reference Range Interpretation Comments B/C Ratio (test code = B/C Ratio) 8 6-25 N [facility] HospitalKbzqsuoRSVEEXIPB1050-28-63 06:42:00 Test Item Value Reference Range Interpretation Comments Globulin (test code = Globulin) 2.5 2.0-4.0 N [facility] HospitalZatabkhUYDCJPYVP9123-76-61 06:42:00 Test Item Value Reference Range Interpretation Comments AGAP (test code = AGAP) 16.9 10.0-20.0 N [facility] HospitalBsmpdoaEQTVFYYRU9800-95-99 06:42:00 Test Item Value Reference Range Interpretation Comments A/G Ratio (test code = A/G Ratio) 1.6 0.7-1.6 N [facility] HospitalUymotcjXTVGJKIIO7829-44-05 06:42:00 Test Item Value Reference Range Interpretation Comments eGFR (test code = eGFR) 105 [facility] HospitalTdhhtzmVQESEWZUZ1068-04-71 06:42:00 Test Item Value Reference Range Interpretation Comments Glucose Lvl (test code = Glucose Lvl) 109 70-99 H [facility] HospitalEaamqnlDHOFQHKZO7083-28-35 06:42:00 Test Item Value Reference Range Interpretation Comments ALT (test code = ALT) 26 See_Comment N [Auto mated message] The system which ge nerated this result transmit abdelrahman reference range : <=65. The reference range was not used to interpr et this result as gurpreet l/abnormal. [facility] HospitalEjnljetTYLIQMZZO5123-70-28 06:42:00 Test Item Value Reference Range Interpretation Comments Albumin Lvl (test code = Albumin Lvl) 3.9 3.5-5.0 N [facility] HospitalOqudgxcRHJGOTDJB4654-08-11 06:42:00 Test Item Value Reference Range Interpretation Comments Alk Phos (test code = Alk Phos) 47 39-136 N [facility] HospitalQeltxfnRINVIIZDH5822-44-66 06:42:00 Test Item Value Reference Range Interpretation Comments Total Protein (test code = Total 6.4 6.4-8.4 N Protein) [facility] HospitalXnvxvwuRDEGUTQIT2391-51-76 06:42:00 Test Item Value Reference Range Interpretation Comments AST (test code = AST) 31 See_Comment N [Auto mated message] The system which ge nerated this result transmit abdelrahman reference range : <=37. The reference range was not used to interpr et this result as gurpreet l/abnormal. [facility] HospitalApknplaMMCBUHWBR6553-88-86 06:42:00 Test Item Value Reference Range Interpretation Comments Calcium Lvl (test code = Calcium Lvl) 9.0 8.5-10.5 N [facility] HospitalChyguxdPXVDSNRIO3151-71-82 06:42:00 Test Item Value Reference Range Interpretation Comments Bili Total (test code = Bili Total) 0.4 0.2-1.3 N [facility] HospitalQoskjmjKOUMNPLGG6185-11-06 06:42:00 Test Item Value Reference Range Interpretation Comments Chloride Lvl (test code = Chloride Lvl) 104 95-109 N [facility] HospitalTrhosakGXIGRVHAQ3670-86-50 06:42:00 Test Item Value Reference Range Interpretation Comments CO2 (test code = CO2) 24 24-32 N [facility] HospitalMifcujgPOWRRYQWS7529-28-60 06:42:00 Test Item Value Reference Range Interpretation Comments Sodium Lvl (test code = Sodium Lvl) 141 135-145 N [facility] HospitalPmnzdcyALXDIZDZH5497-80-64 06:42:00 Test Item Value Reference Range Interpretation Comments Potassium Lvl (test code = Potassium 3.9 3.5-5.1 N Lvl) [facility] HospitalOulhdaiCQRHFUYBH6126-00-97 06:42:00 Test Item Value Reference Range Interpretation Comments BUN (test code = BUN) 8 7-22 N [facility] HospitalIlgrkycVHOZYSRCK6403-38-32 06:42:00 Test Item Value Reference Range Interpretation Comments Creatinine Lvl (test code = Creatinine 1.0 0.5-1.4 N Lvl) [facility] HospitalCpdkczoOZTRRZOFDA0857-39-06 06:42:00 Test Item Value Reference Range Interpretation Comments MCH (test code = MCH) 30.2 pg 27.0-31.0 N [facility] HospitalCipyqtqCIVFSYHNKJ5069-64-48 06:42:00 Test Item Value Reference Range Interpretation Comments Platelet (test code = Platelet) 134 133-450 N [facility] HospitalTkzgdteYGKFOTRNAE1773-80-59 06:42:00 Test Item Value Reference Range Interpretation Comments MPV (test code = MPV) 10.1 7.4-10.4 N [facility] HospitalOavgyqtBJSKANWRNW8934-49-49 06:42:00 Test Item Value Reference Range Interpretation Comments RDW (test code = RDW) 13.4 11.5-14.5 N [facility] HospitalNcnaadlMNIOODLHHO2148-95-90 06:42:00 Test Item Value Reference Range Interpretation Comments Hct (test code = Hct) 39.4 42.0-54.0 L [facility] HospitalOffkujiBQFBVPJNJR6503-40-09 06:42:00 Test Item Value Reference Range Interpretation Comments MCV (test code = MCV) 89.5 80.0-94.0 N [facility] HospitalCdtrmfeDGPYQUHTQY1805-84-65 06:42:00 Test Item Value Reference Range Interpretation Comments Hgb (test code = Hgb) 13.3 14.0-18.0 L [facility] HospitalUsnjhesCTAFHDJLCF6661-70-76 06:42:00 Test Item Value Reference Range Interpretation Comments MCHC (test code = MCHC) 33.7 32.0-36.0 N [facility] HospitalZspwwgoNWGYAGBMPZ3854-33-19 06:42:00 Test Item Value Reference Range Interpretation Comments WBC (test code = WBC) 12.5 3.7-10.4 H [facility] HospitalDxkbfcxNRJPPOSTSY2297-03-94 06:42:00 Test Item Value Reference Range Interpretation Comments RBC (test code = RBC) 4.40 4.70-6.10 L [facility] HospitalRqivphbWIPRIOALJX8368-48-31 06:42:00 Test Item Value Reference Range Interpretation Comments Lymphocytes (test code = Lymphocytes) 9.4 20.0-40.0 L [facility] HospitalPphrmxtRDRGNUFRJW7406-89-05 06:42:00 Test Item Value Reference Range Interpretation Comments Monocytes (test code = Monocytes) 10.8 2.0-12.0 N [facility] HospitalLgalqihUTRHAZYGBM1188-80-42 06:42:00 Test Item Value Reference Range Interpretation Comments Segs (test code = Segs) 79.6 45.0-75.0 H [facility] HospitalQtlqxpxHMMBQXGEBL6000-04-15 06:42:00 Test Item Value Reference Range Interpretation Comments Eosinophils (test code = 0.1 See_Comment N [A utomated message] The Eosinophils) system which ge nerated this result tra nsmitted reference range : <=4.0. The reference r annemarie was not used to int erpret this result as normal/abnormal . [facility] HospitalGvgpolfMJLQUVBBPQ1297-80-05 06:42:00 Test Item Value Reference Range Interpretation Comments Basophils (test code = 0.1 See_Comment N [Aut omated message] The Basophils) system which ge nerated this result tra nsmitted reference range : <=1.0. The reference r annemarie was not used to int erpret this result as normal/abnormal . [facility] HospitalPkysnuoXKYWQDTSVS4122-49-42 06:42:00 Test Item Value Reference Range Interpretation Comments Segs-Bands # (test code = Segs-Bands #) 9.9 1.5-8.1 H [facility] HospitalKjwwvrzLPAMZDJLIH8536-27-94 06:42:00 Test Item Value Reference Range Interpretation Comments Lymphocytes # (test code = Lymphocytes 1.2 1.0-5.5 N #) [facility] HospitalNhcrdunAPZRTEGCZH3355-34-54 06:42:00 Test Item Value Reference Range Interpretation Comments Monocytes # (test code 1.3 See_Comment H [Aut omated message] The = Monocytes #) system which generated this result tra nsmitted reference range : <=0.8. The reference r annemarie was not used to int erpret this result as normal/abnormal . [facility]WdlysaeLMGQUQBOV8444-58-53 06:42:00 Test Item Value Reference Range Interpretation Comments B/C Ratio (test code = B/C Ratio) 8 6-25 N [facility] HospitalGzrixdnRYMGDFTAU1127-45-68 06:42:00 Test Item Value Reference Range Interpretation Comments Globulin (test code = Globulin) 2.5 2.0-4.0 N [facility] HospitalLgztelvAEIGFIKKX8645-69-02 06:42:00 Test Item Value Reference Range Interpretation Comments AGAP (test code = AGAP) 16.9 10.0-20.0 N [facility] HospitalLgrunogSFURIPXIO7600-94-80 06:42:00 Test Item Value Reference Range Interpretation Comments A/G Ratio (test code = A/G Ratio) 1.6 0.7-1.6 N [facility] HospitalWzinthxWIGSAFJSU0280-22-74 06:42:00 Test Item Value Reference Range Interpretation Comments eGFR (test code = eGFR) 105 [facility] HospitalOdxqeioIELKWTDAZ4492-30-58 06:42:00 Test Item Value Reference Range Interpretation Comments Glucose Lvl (test code = Glucose Lvl) 109 70-99 H [facility] HospitalVdvtzmuFARQXJMSN5856-42-33 06:42:00 Test Item Value Reference Range Interpretation Comments ALT (test code = ALT) 26 See_Comment N [Auto mated message] The system which ge nerated this result transmit abdelrahman reference range : <=65. The reference range was not used to interpr et this result as gurpreet l/abnormal. [facility] HospitalQuejkeuVXYWLPUJA6672-51-99 06:42:00 Test Item Value Reference Range Interpretation Comments Albumin Lvl (test code = Albumin Lvl) 3.9 3.5-5.0 N [facility] HospitalAwuhbdbRBALHPXYA2256-31-40 06:42:00 Test Item Value Reference Range Interpretation Comments Alk Phos (test code = Alk Phos) 47 39-136 N [facility] HospitalPqfowdfUQSRBLOQD5017-17-01 06:42:00 Test Item Value Reference Range Interpretation Comments Total Protein (test code = Total 6.4 6.4-8.4 N Protein) [facility] HospitalUydtftjPUKKWFZGF7198-80-11 06:42:00 Test Item Value Reference Range Interpretation Comments AST (test code = AST) 31 See_Comment N [Auto mated message] The system which ge nerated this result transmit abdelrahman reference range : <=37. The reference range was not used to interpr et this result as gurpreet l/abnormal. [facility] HospitalMmdlqqiHFVNUZCRH5366-79-69 06:42:00 Test Item Value Reference Range Interpretation Comments Calcium Lvl (test code = Calcium Lvl) 9.0 8.5-10.5 N [facility] HospitalBkqilsvAUECSRAGZ1394-26-71 06:42:00 Test Item Value Reference Range Interpretation Comments Bili Total (test code = Bili Total) 0.4 0.2-1.3 N [facility] HospitalTgypwtgIIYOTJBYK5055-02-16 06:42:00 Test Item Value Reference Range Interpretation Comments Chloride Lvl (test code = Chloride Lvl) 104 95-109 N [facility] HospitalXkqgsruZSLRPVXNE5961-12-49 06:42:00 Test Item Value Reference Range Interpretation Comments CO2 (test code = CO2) 24 24-32 N [facility] HospitalCzokwrjUNCXGEPBC0483-70-22 06:42:00 Test Item Value Reference Range Interpretation Comments Sodium Lvl (test code = Sodium Lvl) 141 135-145 N [facility] HospitalTdrniheXGWAPFFVF4102-86-90 06:42:00 Test Item Value Reference Range Interpretation Comments Potassium Lvl (test code = Potassium 3.9 3.5-5.1 N Lvl) [facility] HospitalSlxrnmmMEDUUVBQZ2165-45-00 06:42:00 Test Item Value Reference Range Interpretation Comments BUN (test code = BUN) 8 7-22 N [facility] HospitalAmddnxwUWTGLGEQL6251-54-77 06:42:00 Test Item Value Reference Range Interpretation Comments Creatinine Lvl (test code = Creatinine 1.0 0.5-1.4 N Lvl) [facility] HospitalAdroxwyGVYYMMFSFC5266-77-61 06:42:00 Test Item Value Reference Range Interpretation Comments MCH (test code = MCH) 30.2 pg 27.0-31.0 N [facility] HospitalTbvpxscVORQOWSFTU2335-02-55 06:42:00 Test Item Value Reference Range Interpretation Comments Platelet (test code = Platelet) 134 133-450 N [facility] HospitalKxlhtiaSPMYRYWBEJ0895-01-63 06:42:00 Test Item Value Reference Range Interpretation Comments MPV (test code = MPV) 10.1 7.4-10.4 N [facility] HospitalQznzbyvAZTDAOJKVD4935-28-55 06:42:00 Test Item Value Reference Range Interpretation Comments RDW (test code = RDW) 13.4 11.5-14.5 N [facility] HospitalMgepgikXNOLFICEIY3489-97-18 06:42:00 Test Item Value Reference Range Interpretation Comments Hct (test code = Hct) 39.4 42.0-54.0 L [facility] HospitalDiofdoqLPWLTTRTWB1036-16-63 06:42:00 Test Item Value Reference Range Interpretation Comments MCV (test code = MCV) 89.5 80.0-94.0 N [facility] HospitalLlrazmjMMUANVBEXE2296-87-56 06:42:00 Test Item Value Reference Range Interpretation Comments Hgb (test code = Hgb) 13.3 14.0-18.0 L [facility] HospitalGrpbouhMJQUAWLSOM6351-80-53 06:42:00 Test Item Value Reference Range Interpretation Comments MCHC (test code = MCHC) 33.7 32.0-36.0 N [facility] HospitalZycuideOJYMYXCKKK0775-19-73 06:42:00 Test Item Value Reference Range Interpretation Comments WBC (test code = WBC) 12.5 3.7-10.4 H [facility] HospitalFiwittwDJLYATPMFG9913-06-36 06:42:00 Test Item Value Reference Range Interpretation Comments RBC (test code = RBC) 4.40 4.70-6.10 L [facility] HospitalYlrigwiMDMHNTGMTC5526-00-74 06:42:00 Test Item Value Reference Range Interpretation Comments Lymphocytes (test code = Lymphocytes) 9.4 20.0-40.0 L [facility] HospitalRwhpxiwVDIWWDZUCD5377-09-41 06:42:00 Test Item Value Reference Range Interpretation Comments Monocytes (test code = Monocytes) 10.8 2.0-12.0 N [facility] HospitalUglauvlBEZPYYSVUW7206-38-02 06:42:00 Test Item Value Reference Range Interpretation Comments Segs (test code = Segs) 79.6 45.0-75.0 H [facility] HospitalFjnveblUWGQLLPQLD2404-05-98 06:42:00 Test Item Value Reference Range Interpretation Comments Eosinophils (test code = 0.1 See_Comment N [A utomated message] The Eosinophils) system which ge nerated this result tra nsmitted reference range : <=4.0. The reference r annemarie was not used to int erpret this result as normal/abnormal . [facility] HospitalFrhvgavUBEHNOLPOA1371-14-11 06:42:00 Test Item Value Reference Range Interpretation Comments Basophils (test code = 0.1 See_Comment N [Aut omated message] The Basophils) system which ge nerated this result tra nsmitted reference range : <=1.0. The reference r annemarie was not used to int erpret this result as normal/abnormal . [facility] HospitalLeenbwsWRRPMZAFWZ5373-93-27 06:42:00 Test Item Value Reference Range Interpretation Comments Segs-Bands # (test code = Segs-Bands #) 9.9 1.5-8.1 H [facility] HospitalMohypioPZTGJVECWF2415-49-63 06:42:00 Test Item Value Reference Range Interpretation Comments Lymphocytes # (test code = Lymphocytes 1.2 1.0-5.5 N #) [facility] HospitalLuxogqsHUQHUUVXRO9169-93-74 06:42:00 Test Item Value Reference Range Interpretation Comments Monocytes # (test code 1.3 See_Comment H [Aut omated message] The = Monocytes #) system which generated this result tra nsmitted reference range : <=0.8. The reference r annemarie was not used to int erpret this result as normal/abnormal . [facility] HospitalSynigtgSJEJUJMMQ6761-58-96 06:42:00 Test Item Value Reference Range Interpretation Comments B/C Ratio (test code = B/C Ratio) 8 6-25 N [facility] HospitalTisphapGLWQKNJXZ1002-25-65 06:42:00 Test Item Value Reference Range Interpretation Comments Globulin (test code = Globulin) 2.5 2.0-4.0 N [facility] HospitalQmddavkQINNCHIZZ6436-44-41 06:42:00 Test Item Value Reference Range Interpretation Comments AGAP (test code = AGAP) 16.9 10.0-20.0 N [facility] HospitalDclnqrzTVZMUXTPV7148-08-52 06:42:00 Test Item Value Reference Range Interpretation Comments A/G Ratio (test code = A/G Ratio) 1.6 0.7-1.6 N [facility] HospitalEaouedlZRQFQKTES9728-83-04 06:42:00 Test Item Value Reference Range Interpretation Comments eGFR (test code = eGFR) 105 [facility] HospitalZtnofwpSEWETOUIT7282-07-34 06:42:00 Test Item Value Reference Range Interpretation Comments Glucose Lvl (test code = Glucose Lvl) 109 70-99 H [facility] HospitalLmvozkzYICBIRJKY4577-37-41 06:42:00 Test Item Value Reference Range Interpretation Comments ALT (test code = ALT) 26 See_Comment N [Auto mated message] The system which ge nerated this result transmit abdelrahman reference range : <=65. The reference range was not used to interpr et this result as gurpreet l/abnormal. [facility] HospitalUfwuqeoWPLRTPRDL8152-86-42 06:42:00 Test Item Value Reference Range Interpretation Comments Albumin Lvl (test code = Albumin Lvl) 3.9 3.5-5.0 N [facility] HospitalXhscemuSTDJIFGPD0057-74-38 06:42:00 Test Item Value Reference Range Interpretation Comments Alk Phos (test code = Alk Phos) 47 39-136 N [facility] HospitalQzgkpnnHSRQBYROS0335-88-69 06:42:00 Test Item Value Reference Range Interpretation Comments Total Protein (test code = Total 6.4 6.4-8.4 N Protein) [facility] HospitalJpoeznpYKMGJLQBB1292-81-16 06:42:00 Test Item Value Reference Range Interpretation Comments AST (test code = AST) 31 See_Comment N [Auto mated message] The system which ge nerated this result transmit abdelrahman reference range : <=37. The reference range was not used to interpr et this result as gurpreet l/abnormal. [facility] HospitalYzncpoxYTKAEFAPC1049-41-66 06:42:00 Test Item Value Reference Range Interpretation Comments Calcium Lvl (test code = Calcium Lvl) 9.0 8.5-10.5 N [facility] HospitalSiwyvmoTIHXQGZWJ9149-07-08 06:42:00 Test Item Value Reference Range Interpretation Comments Bili Total (test code = Bili Total) 0.4 0.2-1.3 N [facility] HospitalTzqxlbuIYXBGFIVX9424-12-22 06:42:00 Test Item Value Reference Range Interpretation Comments Chloride Lvl (test code = Chloride Lvl) 104 95-109 N [facility] HospitalKotpuemCLCVNYYZT9505-56-43 06:42:00 Test Item Value Reference Range Interpretation Comments CO2 (test code = CO2) 24 24-32 N [facility] HospitalZeczwmdEMZWBPDTD9717-92-17 06:42:00 Test Item Value Reference Range Interpretation Comments Sodium Lvl (test code = Sodium Lvl) 141 135-145 N [facility] HospitalDvdxygzTUIQDZYBU9378-61-17 06:42:00 Test Item Value Reference Range Interpretation Comments Potassium Lvl (test code = Potassium 3.9 3.5-5.1 N Lvl) [facility] HospitalZddrutiKACXOZKWQ7731-95-96 06:42:00 Test Item Value Reference Range Interpretation Comments BUN (test code = BUN) 8 7-22 N [facility] HospitalAdoodsaJXMVWKLMS7920-96-89 06:42:00 Test Item Value Reference Range Interpretation Comments Creatinine Lvl (test code = Creatinine 1.0 0.5-1.4 N Lvl) [facility] HospitalFqxngkoDDMNGOVZXT6750-93-73 06:42:00 Test Item Value Reference Range Interpretation Comments MCH (test code = MCH) 30.2 pg 27.0-31.0 N [facility] HospitalWqridkqXMPYCUGLVJ6021-80-16 06:42:00 Test Item Value Reference Range Interpretation Comments Platelet (test code = Platelet) 134 133-450 N [facility] HospitalSurcjchPFEZFIMNAP2508-07-68 06:42:00 Test Item Value Reference Range Interpretation Comments MPV (test code = MPV) 10.1 7.4-10.4 N [facility] HospitalXslebtxFDKTSHTILE2491-58-58 06:42:00 Test Item Value Reference Range Interpretation Comments RDW (test code = RDW) 13.4 11.5-14.5 N [facility] HospitalDatbndlRMZDJNPIJE0383-70-34 06:42:00 Test Item Value Reference Range Interpretation Comments Hct (test code = Hct) 39.4 42.0-54.0 L [facility] HospitalIueuimzMZOBGKEZNT3209-86-72 06:42:00 Test Item Value Reference Range Interpretation Comments MCV (test code = MCV) 89.5 80.0-94.0 N [facility] HospitalHxqvsnwZMVMPCOKEC8258-97-07 06:42:00 Test Item Value Reference Range Interpretation Comments Hgb (test code = Hgb) 13.3 14.0-18.0 L [facility] HospitalEjtfvhjLXNPDTOSYO3040-55-24 06:42:00 Test Item Value Reference Range Interpretation Comments MCHC (test code = MCHC) 33.7 32.0-36.0 N [facility] HospitalZswcjupTWNWHGMMYP5885-04-24 06:42:00 Test Item Value Reference Range Interpretation Comments WBC (test code = WBC) 12.5 3.7-10.4 H [facility] HospitalKvndhvkVVPVRILZTQ4829-49-86 06:42:00 Test Item Value Reference Range Interpretation Comments RBC (test code = RBC) 4.40 4.70-6.10 L [facility] HospitalXpykkoeSEMWMOYGJT3395-00-78 06:42:00 Test Item Value Reference Range Interpretation Comments Lymphocytes (test code = Lymphocytes) 9.4 20.0-40.0 L [facility] HospitalYgtbvkiTNELBSSMYV5014-72-95 06:42:00 Test Item Value Reference Range Interpretation Comments Monocytes (test code = Monocytes) 10.8 2.0-12.0 N [facility] HospitalLjvsuitGRNEJZNBRZ4596-71-69 06:42:00 Test Item Value Reference Range Interpretation Comments Segs (test code = Segs) 79.6 45.0-75.0 H [facility] HospitalRontylwLWYMKZXWXU2814-56-51 06:42:00 Test Item Value Reference Range Interpretation Comments Eosinophils (test code = 0.1 See_Comment N [A utomated message] The Eosinophils) system which ge nerated this result tra nsmitted reference range : <=4.0. The reference r annemarie was not used to int erpret this result as normal/abnormal . [facility] HospitalXyargpuPBOQRJIOMG8203-61-38 06:42:00 Test Item Value Reference Range Interpretation Comments Basophils (test code = 0.1 See_Comment N [Aut omated message] The Basophils) system which ge nerated this result tra nsmitted reference range : <=1.0. The reference r annemarie was not used to int erpret this result as normal/abnormal . [facility] HospitalEutzzyjBXNDZRNFBT2889-63-46 06:42:00 Test Item Value Reference Range Interpretation Comments Segs-Bands # (test code = Segs-Bands #) 9.9 1.5-8.1 H [facility] HospitalCbmbrpuSGAKHJTFOF7490-77-66 06:42:00 Test Item Value Reference Range Interpretation Comments Lymphocytes # (test code = Lymphocytes 1.2 1.0-5.5 N #) [facility] HospitalSigmqkzPRNBBZFANV4954-93-24 06:42:00 Test Item Value Reference Range Interpretation Comments Monocytes # (test code 1.3 See_Comment H [Aut omated message] The = Monocytes #) system which generated this result tra nsmitted reference range : <=0.8. The reference r annemarie was not used to int erpret this result as normal/abnormal . [facility] HospitalGgovdfjREXYFFKBC0162-49-26 06:42:00 Test Item Value Reference Range Interpretation Comments B/C Ratio (test code = B/C Ratio) 8 6-25 N [facility] HospitalGelnpdsRKDURRAYB8185-09-64 06:42:00 Test Item Value Reference Range Interpretation Comments Globulin (test code = Globulin) 2.5 2.0-4.0 N [facility] HospitalXntbjmwWXZJFEFYB8467-83-69 06:42:00 Test Item Value Reference Range Interpretation Comments AGAP (test code = AGAP) 16.9 10.0-20.0 N [facility] HospitalIpakipcIXOOQNUXD5441-63-71 06:42:00 Test Item Value Reference Range Interpretation Comments A/G Ratio (test code = A/G Ratio) 1.6 0.7-1.6 N [facility] HospitalWytchvfKSZXNENCT7103-84-29 06:42:00 Test Item Value Reference Range Interpretation Comments eGFR (test code = eGFR) 105 [facility] HospitalUdpptknVHTFPIZIR8640-64-51 06:42:00 Test Item Value Reference Range Interpretation Comments Glucose Lvl (test code = Glucose Lvl) 109 70-99 H [facility] HospitalQljixxbRPASRDFEY4005-68-71 06:42:00 Test Item Value Reference Range Interpretation Comments ALT (test code = ALT) 26 See_Comment N [Auto mated message] The system which ge nerated this result transmit abdelrahman reference range : <=65. The reference range was not used to interpr et this result as gurpreet l/abnormal. [facility] HospitalLlpknjxNBZUIXTKB4974-22-44 06:42:00 Test Item Value Reference Range Interpretation Comments Albumin Lvl (test code = Albumin Lvl) 3.9 3.5-5.0 N [facility] HospitalQfyeonsZQQWDPMYW4352-23-69 06:42:00 Test Item Value Reference Range Interpretation Comments Alk Phos (test code = Alk Phos) 47 39-136 N [facility] HospitalGesaxcfPEVNYEMKC0098-71-92 06:42:00 Test Item Value Reference Range Interpretation Comments Total Protein (test code = Total 6.4 6.4-8.4 N Protein) [facility] HospitalQvrngufACDCGWUHU7431-86-27 06:42:00 Test Item Value Reference Range Interpretation Comments AST (test code = AST) 31 See_Comment N [Auto mated message] The system which ge nerated this result transmit abdelrahman reference range : <=37. The reference range was not used to interpr et this result as gurpreet l/abnormal. [facility] HospitalNxjheokWRNIHSBGI0051-20-84 06:42:00 Test Item Value Reference Range Interpretation Comments Calcium Lvl (test code = Calcium Lvl) 9.0 8.5-10.5 N [facility] HospitalZxxlmzsOBCKKNPQJ9252-35-63 06:42:00 Test Item Value Reference Range Interpretation Comments Bili Total (test code = Bili Total) 0.4 0.2-1.3 N [facility] HospitalSxvnhkiMHWFRTAQI9320-91-30 06:42:00 Test Item Value Reference Range Interpretation Comments Chloride Lvl (test code = Chloride Lvl) 104 95-109 N [facility] HospitalDihtieiXKXOLDYHS2991-94-30 06:42:00 Test Item Value Reference Range Interpretation Comments CO2 (test code = CO2) 24 24-32 N [facility] HospitalGimrpslKBOLSEKLX6591-73-31 06:42:00 Test Item Value Reference Range Interpretation Comments Sodium Lvl (test code = Sodium Lvl) 141 135-145 N [facility] HospitalOwhppyqSVKEZTLDK5369-58-49 06:42:00 Test Item Value Reference Range Interpretation Comments Potassium Lvl (test code = Potassium 3.9 3.5-5.1 N Lvl) [facility] HospitalYaiheocIBQGHZHIW7281-59-47 06:42:00 Test Item Value Reference Range Interpretation Comments BUN (test code = BUN) 8 7-22 N [facility] HospitalYpfbuqySEUFOVJGO9370-54-14 06:42:00 Test Item Value Reference Range Interpretation Comments Creatinine Lvl (test code = Creatinine 1.0 0.5-1.4 N Lvl) [facility] HospitalNzxlaedMIYSCQTJHF2603-33-26 06:42:00 Test Item Value Reference Range Interpretation Comments MCH (test code = MCH) 30.2 pg 27.0-31.0 N [facility] HospitalEacwbzmRUEWGMXSRE1446-27-85 06:42:00 Test Item Value Reference Range Interpretation Comments Platelet (test code = Platelet) 134 133-450 N [facility] HospitalSwgjierFKICJOSZGF5413-96-50 06:42:00 Test Item Value Reference Range Interpretation Comments MPV (test code = MPV) 10.1 7.4-10.4 N [facility] HospitalLibropwDEFJVYEIKY4090-05-84 06:42:00 Test Item Value Reference Range Interpretation Comments RDW (test code = RDW) 13.4 11.5-14.5 N [facility] HospitalNavzqcuNMCFTBHTQH2050-95-77 06:42:00 Test Item Value Reference Range Interpretation Comments Hct (test code = Hct) 39.4 42.0-54.0 L [facility] HospitalAcsugyoCNKAJCUBXT6062-58-38 06:42:00 Test Item Value Reference Range Interpretation Comments MCV (test code = MCV) 89.5 80.0-94.0 N [facility] HospitalZlzsjpjTAIGMKNCMO1691-32-54 06:42:00 Test Item Value Reference Range Interpretation Comments Hgb (test code = Hgb) 13.3 14.0-18.0 L [facility] HospitalCaikcvoNGKFCWLJYK9955-11-13 06:42:00 Test Item Value Reference Range Interpretation Comments MCHC (test code = MCHC) 33.7 32.0-36.0 N [facility] HospitalCkokbbyAQRVJJQDIJ6875-11-13 06:42:00 Test Item Value Reference Range Interpretation Comments WBC (test code = WBC) 12.5 3.7-10.4 H [facility] HospitalBpelcgfTKGDPVLTIB7387-51-29 06:42:00 Test Item Value Reference Range Interpretation Comments RBC (test code = RBC) 4.40 4.70-6.10 L [facility] HospitalTgtlquuZKIOEIGXFB7463-37-55 06:42:00 Test Item Value Reference Range Interpretation Comments Lymphocytes (test code = Lymphocytes) 9.4 20.0-40.0 L [facility] HospitalUoprtadCSGHBYMUVH3643-35-46 06:42:00 Test Item Value Reference Range Interpretation Comments Monocytes (test code = Monocytes) 10.8 2.0-12.0 N [facility] HospitalRbrkppmULWIMYCHIB9238-05-74 06:42:00 Test Item Value Reference Range Interpretation Comments Segs (test code = Segs) 79.6 45.0-75.0 H [facility] HospitalUvasqlhNTDZTLTEWW0677-59-91 06:42:00 Test Item Value Reference Range Interpretation Comments Eosinophils (test code = 0.1 See_Comment N [A utomated message] The Eosinophils) system which ge nerated this result tra nsmitted reference range : <=4.0. The reference r annemarie was not used to int erpret this result as normal/abnormal . [facility] HospitalYrehnqjGTUWJNBDQT8347-19-37 06:42:00 Test Item Value Reference Range Interpretation Comments Basophils (test code = 0.1 See_Comment N [Aut omated message] The Basophils) system which ge nerated this result tra nsmitted reference range : <=1.0. The reference r annemarie was not used to int erpret this result as normal/abnormal . [facility] HospitalBjgaqfaNUVGNZMXUH3002-40-70 06:42:00 Test Item Value Reference Range Interpretation Comments Segs-Bands # (test code = Segs-Bands #) 9.9 1.5-8.1 H [facility] HospitalYkhvbwuJDCUFVVOJA1688-42-97 06:42:00 Test Item Value Reference Range Interpretation Comments Lymphocytes # (test code = Lymphocytes 1.2 1.0-5.5 N #) [facility] HospitalRbrgxgdTQZLISZYCP1821-77-51 06:42:00 Test Item Value Reference Range Interpretation Comments Monocytes # (test code 1.3 See_Comment H [Aut omated message] The = Monocytes #) system which generated this result tra nsmitted reference range : <=0.8. The reference r annemarie was not used to int erpret this result as normal/abnormal . [facility]MvrcujlIYYONMKKR5756-24-02 06:42:00 Test Item Value Reference Range Interpretation Comments B/C Ratio (test code = B/C Ratio) 8 6-25 N [facility] HospitalUijmuffEMUBVXPUI0013-31-27 06:42:00 Test Item Value Reference Range Interpretation Comments Globulin (test code = Globulin) 2.5 2.0-4.0 N [facility] HospitalZhndzvaXGQDOGGRI5972-16-82 06:42:00 Test Item Value Reference Range Interpretation Comments AGAP (test code = AGAP) 16.9 10.0-20.0 N [facility] HospitalOmsbamvQNUQSEQLY0467-74-67 06:42:00 Test Item Value Reference Range Interpretation Comments A/G Ratio (test code = A/G Ratio) 1.6 0.7-1.6 N [facility]ZdivywqKGXSGCKTL6809-04-29 06:42:00 Test Item Value Reference Range Interpretation Comments eGFR (test code = eGFR) 105 [facility] HospitalAlibovdJLAKYWJIV3936-40-53 06:42:00 Test Item Value Reference Range Interpretation Comments Glucose Lvl (test code = Glucose Lvl) 109 70-99 H [facility] HospitalXpqmcoiMNNOTMGXH5261-02-80 06:42:00 Test Item Value Reference Range Interpretation Comments ALT (test code = ALT) 26 See_Comment N [Auto mated message] The system which ge nerated this result transmit abdelrahman reference range : <=65. The reference range was not used to interpr et this result as gurpreet l/abnormal. [facility]LbudeudHVWOSKVJH8898-94-65 06:42:00 Test Item Value Reference Range Interpretation Comments Albumin Lvl (test code = Albumin Lvl) 3.9 3.5-5.0 N [facility] AustinZoktyigIXLJOILQZ8248-32-44 06:42:00 Test Item Value Reference Range Interpretation Comments Alk Phos (test code = Alk Phos) 47 39-136 N [facility] AustinWjwrhgpSNUGYRWUQ5368-40-51 06:42:00 Test Item Value Reference Range Interpretation Comments Total Protein (test code = Total 6.4 6.4-8.4 N Protein) [facility] HospitalSftkxzzWHDHYJKIN1720-23-18 06:42:00 Test Item Value Reference Range Interpretation Comments AST (test code = AST) 31 See_Comment N [Auto mated message] The system which ge nerated this result transmit abdelrahman reference range : <=37. The reference range was not used to interpr et this result as gurpreet l/abnormal. [facility] AustinDauxqefFNOQOLFNL8277-50-37 06:42:00 Test Item Value Reference Range Interpretation Comments Calcium Lvl (test code = Calcium Lvl) 9.0 8.5-10.5 N [facility] AustinTsvfnbhNIXQEUNLU6103-43-24 06:42:00 Test Item Value Reference Range Interpretation Comments Bili Total (test code = Bili Total) 0.4 0.2-1.3 N [facility] HospitalSrpzokaXVOZMNAQZ3370-95-02 06:42:00 Test Item Value Reference Range Interpretation Comments Chloride Lvl (test code = Chloride Lvl) 104 95-109 N [facility] AustinTdmlxivKTRQTAFSB7913-30-14 06:42:00 Test Item Value Reference Range Interpretation Comments CO2 (test code = CO2) 24 24-32 N [facility] HospitalGpcrqdzBJPXCRHYJ8971-64-85 06:42:00 Test Item Value Reference Range Interpretation Comments Sodium Lvl (test code = Sodium Lvl) 141 135-145 N [facility] HospitalSvmdroqAGXXCSOGW0810-59-03 06:42:00 Test Item Value Reference Range Interpretation Comments Potassium Lvl (test code = Potassium 3.9 3.5-5.1 N Lvl) [facility] HospitalYvpngcjCREDCWUEY0894-73-42 06:42:00 Test Item Value Reference Range Interpretation Comments BUN (test code = BUN) 8 7-22 N [facility] HospitalNfwbgliEMSYQSFHK4175-72-29 06:42:00 Test Item Value Reference Range Interpretation Comments Creatinine Lvl (test code = Creatinine 1.0 0.5-1.4 N Lvl) [facility] HospitalWfixrutJVUFVMJUJY9277-70-38 06:42:00 Test Item Value Reference Range Interpretation Comments MCH (test code = MCH) 30.2 pg 27.0-31.0 N [facility] HospitalTuollbrJMOFMBMTGF7160-47-20 06:42:00 Test Item Value Reference Range Interpretation Comments Platelet (test code = Platelet) 134 133-450 N [facility] HospitalHtvglkoJCPVOIGTEW8031-90-77 06:42:00 Test Item Value Reference Range Interpretation Comments MPV (test code = MPV) 10.1 7.4-10.4 N [facility] HospitalWtctjalBTBPTPTSDF2739-45-90 06:42:00 Test Item Value Reference Range Interpretation Comments RDW (test code = RDW) 13.4 11.5-14.5 N [facility] HospitalGhskuddQSWIPXCEWP4728-13-91 06:42:00 Test Item Value Reference Range Interpretation Comments Hct (test code = Hct) 39.4 42.0-54.0 L [facility] HospitalOfdtgbgRWBPKXJGSD0465-51-38 06:42:00 Test Item Value Reference Range Interpretation Comments MCV (test code = MCV) 89.5 80.0-94.0 N [facility] HospitalSylatntWSYIBPYZDM7969-14-71 06:42:00 Test Item Value Reference Range Interpretation Comments Hgb (test code = Hgb) 13.3 14.0-18.0 L [facility] HospitalLxijweeNWDRIUXTES8488-74-93 06:42:00 Test Item Value Reference Range Interpretation Comments MCHC (test code = MCHC) 33.7 32.0-36.0 N [facility] HospitalWrfnyeaARRFWDPQXC3153-09-18 06:42:00 Test Item Value Reference Range Interpretation Comments WBC (test code = WBC) 12.5 3.7-10.4 H [facility] HospitalXrhimdsLXLSQZLBZZ8845-59-14 06:42:00 Test Item Value Reference Range Interpretation Comments RBC (test code = RBC) 4.40 4.70-6.10 L [facility] HospitalOmmjpqeVZZTABITDX8949-51-88 06:42:00 Test Item Value Reference Range Interpretation Comments Lymphocytes (test code = Lymphocytes) 9.4 20.0-40.0 L [facility] HospitalQimdsopYTQAAOCTFC8469-70-62 06:42:00 Test Item Value Reference Range Interpretation Comments Monocytes (test code = Monocytes) 10.8 2.0-12.0 N [facility] HospitalBbbvrtrWHHXQJFRDO9417-39-59 06:42:00 Test Item Value Reference Range Interpretation Comments Segs (test code = Segs) 79.6 45.0-75.0 H [facility] HospitalMmwgoruZVBVOVZUOZ3211-96-70 06:42:00 Test Item Value Reference Range Interpretation Comments Eosinophils (test code = 0.1 See_Comment N [A utomated message] The Eosinophils) system which ge nerated this result tra nsmitted reference range : <=4.0. The reference r annemarie was not used to int erpret this result as normal/abnormal . [facility] HospitalNunqbiyXNEFLLNRKV1078-23-42 06:42:00 Test Item Value Reference Range Interpretation Comments Basophils (test code = 0.1 See_Comment N [Aut omated message] The Basophils) system which ge nerated this result tra nsmitted reference range : <=1.0. The reference r annemarie was not used to int erpret this result as normal/abnormal . [facility] HospitalFoekxmuVYBIRCIAZH2912-76-33 06:42:00 Test Item Value Reference Range Interpretation Comments Segs-Bands # (test code = Segs-Bands #) 9.9 1.5-8.1 H [facility] HospitalFwelkotEWFFHQBVKI0206-91-01 06:42:00 Test Item Value Reference Range Interpretation Comments Lymphocytes # (test code = Lymphocytes 1.2 1.0-5.5 N #) [facility] HospitalVnbhmmjLZCJMMINQF7235-79-62 06:42:00 Test Item Value Reference Range Interpretation Comments Monocytes # (test code 1.3 See_Comment H [Aut omated message] The = Monocytes #) system which generated this result tra nsmitted reference range : <=0.8. The reference r annemarie was not used to int erpret this result as normal/abnormal . [facility] HospitalGpaztiyOGMHAQLDV4997-71-21 06:42:00 Test Item Value Reference Range Interpretation Comments B/C Ratio (test code = B/C Ratio) 8 6-25 N [facility] HospitalQsrbosqHSIEBPXZT8771-23-91 06:42:00 Test Item Value Reference Range Interpretation Comments Globulin (test code = Globulin) 2.5 2.0-4.0 N [facility] HospitalOgdhldmQQHFAZGSK9661-42-56 06:42:00 Test Item Value Reference Range Interpretation Comments AGAP (test code = AGAP) 16.9 10.0-20.0 N [facility] HospitalXhnnjceRTZXFMYNX1746-23-00 06:42:00 Test Item Value Reference Range Interpretation Comments A/G Ratio (test code = A/G Ratio) 1.6 0.7-1.6 N [facility] HospitalCophrhvSVUIRZMLP4195-86-03 06:42:00 Test Item Value Reference Range Interpretation Comments eGFR (test code = eGFR) 105 [facility] HospitalPoyynpbFRCPQFYBV4286-79-38 06:42:00 Test Item Value Reference Range Interpretation Comments Glucose Lvl (test code = Glucose Lvl) 109 70-99 H [facility] HospitalOslcjtiFPNWHIKGD4392-81-71 06:42:00 Test Item Value Reference Range Interpretation Comments ALT (test code = ALT) 26 See_Comment N [Auto mated message] The system which ge nerated this result transmit abdelrahman reference range : <=65. The reference range was not used to interpr et this result as gurpreet l/abnormal. [facility] HospitalDxugqeyTZNEFZQOJ7020-13-44 06:42:00 Test Item Value Reference Range Interpretation Comments Albumin Lvl (test code = Albumin Lvl) 3.9 3.5-5.0 N [facility] HospitalQevxjquVQZEWCRQS6095-16-74 06:42:00 Test Item Value Reference Range Interpretation Comments Alk Phos (test code = Alk Phos) 47 39-136 N [facility] HospitalAravvdaNRDKYKLVD3570-14-24 06:42:00 Test Item Value Reference Range Interpretation Comments Total Protein (test code = Total 6.4 6.4-8.4 N Protein) [facility] HospitalCbblqhpMGGKIGMOL7039-72-20 06:42:00 Test Item Value Reference Range Interpretation Comments AST (test code = AST) 31 See_Comment N [Auto mated message] The system which ge nerated this result transmit abdelrahman reference range : <=37. The reference range was not used to interpr et this result as gurpreet l/abnormal. [facility] HospitalEiouwaaVWRNOYLWO8611-25-34 06:42:00 Test Item Value Reference Range Interpretation Comments Calcium Lvl (test code = Calcium Lvl) 9.0 8.5-10.5 N [facility] HospitalHtfygblGSFPKUDMU7905-54-77 06:42:00 Test Item Value Reference Range Interpretation Comments Bili Total (test code = Bili Total) 0.4 0.2-1.3 N [facility] HospitalKctcppqCKOOIRZUJ5739-83-03 06:42:00 Test Item Value Reference Range Interpretation Comments Chloride Lvl (test code = Chloride Lvl) 104 95-109 N [facility] HospitalVkcnbaxBDSKXSHYV1891-22-05 06:42:00 Test Item Value Reference Range Interpretation Comments CO2 (test code = CO2) 24 24-32 N [facility] HospitalFrqebsiNEKVFPHJX8830-72-63 06:42:00 Test Item Value Reference Range Interpretation Comments Sodium Lvl (test code = Sodium Lvl) 141 135-145 N [facility] HospitalBflfajlJWLSFLUAN7822-89-51 06:42:00 Test Item Value Reference Range Interpretation Comments Potassium Lvl (test code = Potassium 3.9 3.5-5.1 N Lvl) [facility] HospitalKwxnyjhJVHIZNBGI6655-27-96 06:42:00 Test Item Value Reference Range Interpretation Comments BUN (test code = BUN) 8 7-22 N [facility] HospitalSpzxauhDWCIMEHWD2135-15-13 06:42:00 Test Item Value Reference Range Interpretation Comments Creatinine Lvl (test code = Creatinine 1.0 0.5-1.4 N Lvl) [facility] HospitalMisyijlCYNMZSOILZ6255-98-15 06:42:00 Test Item Value Reference Range Interpretation Comments MCH (test code = MCH) 30.2 pg 27.0-31.0 N [facility] HospitalGwfvjmtBSOJLQNNXK5790-43-76 06:42:00 Test Item Value Reference Range Interpretation Comments Platelet (test code = Platelet) 134 133-450 N [facility] HospitalAaqonqtZMQCHBTISJ5410-77-86 06:42:00 Test Item Value Reference Range Interpretation Comments MPV (test code = MPV) 10.1 7.4-10.4 N [facility] HospitalOmdzirxNCFTVUFXZB1305-07-87 06:42:00 Test Item Value Reference Range Interpretation Comments RDW (test code = RDW) 13.4 11.5-14.5 N [facility] HospitalJioruzdPBFPCWDKWA0011-66-53 06:42:00 Test Item Value Reference Range Interpretation Comments Hct (test code = Hct) 39.4 42.0-54.0 L [facility] HospitalRidzppxVYCQEHBXOI1556-31-39 06:42:00 Test Item Value Reference Range Interpretation Comments MCV (test code = MCV) 89.5 80.0-94.0 N [facility] HospitalYuxhpqrVINVMZKIHS6581-69-26 06:42:00 Test Item Value Reference Range Interpretation Comments Hgb (test code = Hgb) 13.3 14.0-18.0 L [facility] HospitalKvkygyiBHILTCECZQ1318-87-95 06:42:00 Test Item Value Reference Range Interpretation Comments MCHC (test code = MCHC) 33.7 32.0-36.0 N [facility] HospitalRijvwarQVTIJECFHU8628-41-58 06:42:00 Test Item Value Reference Range Interpretation Comments WBC (test code = WBC) 12.5 3.7-10.4 H [facility] HospitalHqgpbwzKXJCQSSUZI9147-90-81 06:42:00 Test Item Value Reference Range Interpretation Comments RBC (test code = RBC) 4.40 4.70-6.10 L [facility] HospitalOahhgqqKHDDCOSTJN1003-56-75 06:42:00 Test Item Value Reference Range Interpretation Comments Lymphocytes (test code = Lymphocytes) 9.4 20.0-40.0 L [facility] HospitalIlmvmwcFUWQBQYSTF0152-54-40 06:42:00 Test Item Value Reference Range Interpretation Comments Monocytes (test code = Monocytes) 10.8 2.0-12.0 N [facility] HospitalBupiovwGZONZGKBOO6113-68-77 06:42:00 Test Item Value Reference Range Interpretation Comments Segs (test code = Segs) 79.6 45.0-75.0 H [facility] HospitalEvpnftwKIGAXMRVWS5283-66-24 06:42:00 Test Item Value Reference Range Interpretation Comments Eosinophils (test code = 0.1 See_Comment N [A utomated message] The Eosinophils) system which ge nerated this result tra nsmitted reference range : <=4.0. The reference r annemarie was not used to int erpret this result as normal/abnormal . [facility] HospitalUsdsreyHWCNQMHSUR3275-71-69 06:42:00 Test Item Value Reference Range Interpretation Comments Basophils (test code = 0.1 See_Comment N [Aut omated message] The Basophils) system which ge nerated this result tra nsmitted reference range : <=1.0. The reference r annemarie was not used to int erpret this result as normal/abnormal . [facility] HospitalSnmodprMQXZIWSAMT9914-62-78 06:42:00 Test Item Value Reference Range Interpretation Comments Segs-Bands # (test code = Segs-Bands #) 9.9 1.5-8.1 H [facility] HospitalZoxejcrZTKBSTZOXZ1842-03-74 06:42:00 Test Item Value Reference Range Interpretation Comments Lymphocytes # (test code = Lymphocytes 1.2 1.0-5.5 N #) [facility] HospitalJmsoyxoDITZLJXLNK8718-52-55 06:42:00 Test Item Value Reference Range Interpretation Comments Monocytes # (test code 1.3 See_Comment H [Aut omated message] The = Monocytes #) system which generated this result tra nsmitted reference range : <=0.8. The reference r annemarie was not used to int erpret this result as normal/abnormal . [facility] HospitalTjlsbrtUEKEFJNLB2065-29-88 06:42:00 Test Item Value Reference Range Interpretation Comments B/C Ratio (test code = B/C Ratio) 8 6-25 N [facility] HospitalXcopdmvFEZCQKSMJ6474-15-72 06:42:00 Test Item Value Reference Range Interpretation Comments Globulin (test code = Globulin) 2.5 2.0-4.0 N [facility] HospitalTuoezmnQTZDYYMRR8450-95-93 06:42:00 Test Item Value Reference Range Interpretation Comments AGAP (test code = AGAP) 16.9 10.0-20.0 N [facility] HospitalPvgsewfQOADYBDLX8624-85-92 06:42:00 Test Item Value Reference Range Interpretation Comments A/G Ratio (test code = A/G Ratio) 1.6 0.7-1.6 N [facility] HospitalIxwtizeSDMWAJNWP2153-96-99 06:42:00 Test Item Value Reference Range Interpretation Comments eGFR (test code = eGFR) 105 [facility] HospitalTfcuznaNLVFAXMHS8999-98-19 06:42:00 Test Item Value Reference Range Interpretation Comments Glucose Lvl (test code = Glucose Lvl) 109 70-99 H [facility] HospitalLgjymjtAWBEUDKUY8241-94-41 06:42:00 Test Item Value Reference Range Interpretation Comments ALT (test code = ALT) 26 See_Comment N [Auto mated message] The system which ge nerated this result transmit abdelrahman reference range : <=65. The reference range was not used to interpr et this result as gurpreet l/abnormal. [facility] HospitalGlepmysTFKNOEPKX0502-21-71 06:42:00 Test Item Value Reference Range Interpretation Comments Albumin Lvl (test code = Albumin Lvl) 3.9 3.5-5.0 N [facility] AustinKdvvpdsUDTIMYQXI4428-13-79 06:42:00 Test Item Value Reference Range Interpretation Comments Alk Phos (test code = Alk Phos) 47 39-136 N [facility] HospitalCclkhujEJZZGURJN6665-68-64 06:42:00 Test Item Value Reference Range Interpretation Comments Total Protein (test code = Total 6.4 6.4-8.4 N Protein) [facility] HospitalLtnrjgvGEQXJLHBS4932-75-87 06:42:00 Test Item Value Reference Range Interpretation Comments AST (test code = AST) 31 See_Comment N [Auto mated message] The system which ge nerated this result transmit abdelrahman reference range : <=37. The reference range was not used to interpr et this result as gurpreet l/abnormal. [facility] HospitalCsmslupMDIONSRCB3061-00-53 06:42:00 Test Item Value Reference Range Interpretation Comments Calcium Lvl (test code = Calcium Lvl) 9.0 8.5-10.5 N [facility] HospitalZiqizviLGDNFLBIP6102-67-80 06:42:00 Test Item Value Reference Range Interpretation Comments Bili Total (test code = Bili Total) 0.4 0.2-1.3 N [facility] HospitalQoognpoHWPFMPJYD5019-90-21 06:42:00 Test Item Value Reference Range Interpretation Comments Chloride Lvl (test code = Chloride Lvl) 104 95-109 N [facility] HospitalErgllezVNSKUJVGD2448-36-89 06:42:00 Test Item Value Reference Range Interpretation Comments CO2 (test code = CO2) 24 24-32 N [facility] HospitalOlfktvxLZZTATLMU7556-80-91 06:42:00 Test Item Value Reference Range Interpretation Comments Sodium Lvl (test code = Sodium Lvl) 141 135-145 N [facility] HospitalVrpwvpjRFEIDAEZL2153-19-06 06:42:00 Test Item Value Reference Range Interpretation Comments Potassium Lvl (test code = Potassium 3.9 3.5-5.1 N Lvl) [facility] HospitalPtwbfzlMYLWVCDVF1826-56-63 06:42:00 Test Item Value Reference Range Interpretation Comments BUN (test code = BUN) 8 7-22 N [facility] HospitalYjuxaklUMOYDXZLR0460-96-48 06:42:00 Test Item Value Reference Range Interpretation Comments Creatinine Lvl (test code = Creatinine 1.0 0.5-1.4 N Lvl) [facility] HospitalEqzigjzFEDTKPHVIQ8015-68-07 06:42:00 Test Item Value Reference Range Interpretation Comments MCH (test code = MCH) 30.2 pg 27.0-31.0 N [facility] HospitalIjqycxkRAPGOCZYAE8852-72-41 06:42:00 Test Item Value Reference Range Interpretation Comments Platelet (test code = Platelet) 134 133-450 N [facility] HospitalXcnynhhPOKXKSIHWB3207-55-52 06:42:00 Test Item Value Reference Range Interpretation Comments MPV (test code = MPV) 10.1 7.4-10.4 N [facility] HospitalUdeqkkqNCSTZRJTGQ6306-32-74 06:42:00 Test Item Value Reference Range Interpretation Comments RDW (test code = RDW) 13.4 11.5-14.5 N [facility] HospitalRqidhhlQIPEJZUKZY3064-10-27 06:42:00 Test Item Value Reference Range Interpretation Comments Hct (test code = Hct) 39.4 42.0-54.0 L [facility] HospitalHpevgjsWEPWJBUHSF1181-22-50 06:42:00 Test Item Value Reference Range Interpretation Comments MCV (test code = MCV) 89.5 80.0-94.0 N [facility] HospitalKbusfyjWNKQZTSMXL3309-87-50 06:42:00 Test Item Value Reference Range Interpretation Comments Hgb (test code = Hgb) 13.3 14.0-18.0 L [facility] HospitalLccikfbVKTBSZNCUQ7579-45-89 06:42:00 Test Item Value Reference Range Interpretation Comments MCHC (test code = MCHC) 33.7 32.0-36.0 N [facility] HospitalAqepffpWFTKSDFKXI6634-61-27 06:42:00 Test Item Value Reference Range Interpretation Comments WBC (test code = WBC) 12.5 3.7-10.4 H [facility] HospitalUsgfsshCXXXNGRLLS2538-72-45 06:42:00 Test Item Value Reference Range Interpretation Comments RBC (test code = RBC) 4.40 4.70-6.10 L [facility] HospitalAiuewopEEDHCOOEDW0507-97-32 06:42:00 Test Item Value Reference Range Interpretation Comments Lymphocytes (test code = Lymphocytes) 9.4 20.0-40.0 L [facility] HospitalQldlgghDNCYGYHNPV9278-62-12 06:42:00 Test Item Value Reference Range Interpretation Comments Monocytes (test code = Monocytes) 10.8 2.0-12.0 N [facility] HospitalXfqshbqHILBOGTUVG4869-56-60 06:42:00 Test Item Value Reference Range Interpretation Comments Segs (test code = Segs) 79.6 45.0-75.0 H [facility] HospitalZvidhcjNCDAYGVNAG4196-91-72 06:42:00 Test Item Value Reference Range Interpretation Comments Eosinophils (test code = 0.1 See_Comment N [A utomated message] The Eosinophils) system which ge nerated this result tra nsmitted reference range : <=4.0. The reference r annemarie was not used to int erpret this result as normal/abnormal . [facility] HospitalXianlskULDEYMZFWK7111-70-04 06:42:00 Test Item Value Reference Range Interpretation Comments Basophils (test code = 0.1 See_Comment N [Aut omated message] The Basophils) system which ge nerated this result tra nsmitted reference range : <=1.0. The reference r annemarie was not used to int erpret this result as normal/abnormal . [facility] HospitalYshgxveXKUTINZFVQ8801-50-72 06:42:00 Test Item Value Reference Range Interpretation Comments Segs-Bands # (test code = Segs-Bands #) 9.9 1.5-8.1 H [facility] HospitalSjclwdgGKHFTYEKEP5806-51-80 06:42:00 Test Item Value Reference Range Interpretation Comments Lymphocytes # (test code = Lymphocytes 1.2 1.0-5.5 N #) [facility] HospitalLrwajndOLYMHFBNLU8745-10-95 06:42:00 Test Item Value Reference Range Interpretation Comments Monocytes # (test code 1.3 See_Comment H [Aut omated message] The = Monocytes #) system which generated this result tra nsmitted reference range : <=0.8. The reference r annemarie was not used to int erpret this result as normal/abnormal . [facility] HospitalZvzgujpOBAIORARM5311-64-16 06:42:00 Test Item Value Reference Range Interpretation Comments B/C Ratio (test code = B/C Ratio) 8 6-25 N [facility] HospitalBjwjhfbWDWSNKCXF4833-05-07 06:42:00 Test Item Value Reference Range Interpretation Comments Globulin (test code = Globulin) 2.5 2.0-4.0 N [facility] HospitalVuvtqacMKWKCBFKF4445-17-66 06:42:00 Test Item Value Reference Range Interpretation Comments AGAP (test code = AGAP) 16.9 10.0-20.0 N [facility] HospitalRymdcjdYBXMEJZIY5439-31-71 06:42:00 Test Item Value Reference Range Interpretation Comments A/G Ratio (test code = A/G Ratio) 1.6 0.7-1.6 N [facility] HospitalSaraalvRMLPXCYSD7885-35-42 06:42:00 Test Item Value Reference Range Interpretation Comments eGFR (test code = eGFR) 105 [facility] HospitalYuhqwzeVGLQLJIXS5361-93-71 06:42:00 Test Item Value Reference Range Interpretation Comments Glucose Lvl (test code = Glucose Lvl) 109 70-99 H [facility] HospitalJgtehdhBQFPQYYEM6824-15-31 06:42:00 Test Item Value Reference Range Interpretation Comments ALT (test code = ALT) 26 See_Comment N [Auto mated message] The system which ge nerated this result transmit abdelrahman reference range : <=65. The reference range was not used to interpr et this result as gurpreet l/abnormal. [facility] HospitalIcufnanNKQEBOWBD3197-31-81 06:42:00 Test Item Value Reference Range Interpretation Comments Albumin Lvl (test code = Albumin Lvl) 3.9 3.5-5.0 N [facility] HospitalGaimqteXXBKCTETD3726-85-64 06:42:00 Test Item Value Reference Range Interpretation Comments Alk Phos (test code = Alk Phos) 47 39-136 N [facility] HospitalFmvsxywBCLXFTHZV9127-64-18 06:42:00 Test Item Value Reference Range Interpretation Comments Total Protein (test code = Total 6.4 6.4-8.4 N Protein) [facility]nfjcpcIOCYVERTV3948-61-97 06:42:00 Test Item Value Reference Range Interpretation Comments AST (test code = AST) 31 See_Comment N [Auto mated message] The system which ge nerated this result transmit abdelrahman reference range : <=37. The reference range was not used to interpr et this result as gurpreet l/abnormal. [facility]HwprgqePHTRBQQXR9497-96-62 06:42:00 Test Item Value Reference Range Interpretation Comments Calcium Lvl (test code = Calcium Lvl) 9.0 8.5-10.5 N [facility] HospitalXccvbkzJESKGXJIS0883-21-22 06:42:00 Test Item Value Reference Range Interpretation Comments Bili Total (test code = Bili Total) 0.4 0.2-1.3 N [facility] HospitalFmxknhgGITSQONTA2134-16-31 06:42:00 Test Item Value Reference Range Interpretation Comments Chloride Lvl (test code = Chloride Lvl) 104 95-109 N [facility] HospitalEkcwailGKQJKUQCC6190-26-56 06:42:00 Test Item Value Reference Range Interpretation Comments CO2 (test code = CO2) 24 24-32 N [facility] HospitalLxzzsqxBTYCMHJVG9836-57-66 06:42:00 Test Item Value Reference Range Interpretation Comments Sodium Lvl (test code = Sodium Lvl) 141 135-145 N [facility] HospitalHqqdzloJQXEBANMP5229-27-69 06:42:00 Test Item Value Reference Range Interpretation Comments Potassium Lvl (test code = Potassium 3.9 3.5-5.1 N Lvl) [facility] HospitalKsywpjaFUBGTUWNO7252-06-47 06:42:00 Test Item Value Reference Range Interpretation Comments BUN (test code = BUN) 8 7-22 N [facility] HospitalSyxtwgeLQMTCNVGE4660-43-05 06:42:00 Test Item Value Reference Range Interpretation Comments Creatinine Lvl (test code = Creatinine 1.0 0.5-1.4 N Lvl) [facility] HospitalIqsbokrWLFYSEBSMP2390-51-72 06:42:00 Test Item Value Reference Range Interpretation Comments MCH (test code = MCH) 30.2 pg 27.0-31.0 N [facility] HospitalKcxnalkSOSAPZEZZM2257-38-60 06:42:00 Test Item Value Reference Range Interpretation Comments Platelet (test code = Platelet) 134 133-450 N [facility] HospitalUnwogqtPJTMGMHLEC8185-08-07 06:42:00 Test Item Value Reference Range Interpretation Comments MPV (test code = MPV) 10.1 7.4-10.4 N [facility] HospitalEemehzkPWZHJZWUAH2556-68-45 06:42:00 Test Item Value Reference Range Interpretation Comments RDW (test code = RDW) 13.4 11.5-14.5 N [facility] HospitalKaqlwysPTGIPZCLXE5638-61-82 06:42:00 Test Item Value Reference Range Interpretation Comments Hct (test code = Hct) 39.4 42.0-54.0 L [facility] HospitalSptdwufEJTWFVYAXR2589-59-20 06:42:00 Test Item Value Reference Range Interpretation Comments MCV (test code = MCV) 89.5 80.0-94.0 N [facility] HospitalQerxnofJGFDJXPSMQ2786-36-76 06:42:00 Test Item Value Reference Range Interpretation Comments Hgb (test code = Hgb) 13.3 14.0-18.0 L [facility] HospitalYwidseyNBMTPWZLTQ5033-51-10 06:42:00 Test Item Value Reference Range Interpretation Comments MCHC (test code = MCHC) 33.7 32.0-36.0 N [facility] HospitalCjzkutlRUHKRITVKR1080-97-18 06:42:00 Test Item Value Reference Range Interpretation Comments WBC (test code = WBC) 12.5 3.7-10.4 H [facility] HospitalSiedsokUUMURFYYUS4338-99-62 06:42:00 Test Item Value Reference Range Interpretation Comments RBC (test code = RBC) 4.40 4.70-6.10 L [facility] HospitalWbxjiwlMBRAURRIFG1357-02-39 06:42:00 Test Item Value Reference Range Interpretation Comments Lymphocytes (test code = Lymphocytes) 9.4 20.0-40.0 L [facility] HospitalQwveivhKVBLNJCIXJ3211-91-27 06:42:00 Test Item Value Reference Range Interpretation Comments Monocytes (test code = Monocytes) 10.8 2.0-12.0 N [facility] HospitalQlrjuybZLNWBZWIKG3230-95-88 06:42:00 Test Item Value Reference Range Interpretation Comments Segs (test code = Segs) 79.6 45.0-75.0 H [facility] HospitalSdmcjayBSZSXMCGEN1942-95-30 06:42:00 Test Item Value Reference Range Interpretation Comments Eosinophils (test code = 0.1 See_Comment N [A utomated message] The Eosinophils) system which ge nerated this result tra nsmitted reference range : <=4.0. The reference r annemarie was not used to int erpret this result as normal/abnormal . [facility] HospitalOfosjqzIXKKOBZKSZ5922-24-78 06:42:00 Test Item Value Reference Range Interpretation Comments Basophils (test code = 0.1 See_Comment N [Aut omated message] The Basophils) system which ge nerated this result tra nsmitted reference range : <=1.0. The reference r annemarie was not used to int erpret this result as normal/abnormal . [facility] HospitalJyqjtqwJELZMNLIYZ7108-46-01 06:42:00 Test Item Value Reference Range Interpretation Comments Segs-Bands # (test code = Segs-Bands #) 9.9 1.5-8.1 H [facility] HospitalQcnxjhuKCHKDHWPKK8784-86-13 06:42:00 Test Item Value Reference Range Interpretation Comments Lymphocytes # (test code = Lymphocytes 1.2 1.0-5.5 N #) [facility] HospitalHierparOWFGRLJBVI1118-53-77 06:42:00 Test Item Value Reference Range Interpretation Comments Monocytes # (test code 1.3 See_Comment H [Aut omated message] The = Monocytes #) system which generated this result tra nsmitted reference range : <=0.8. The reference r annemarie was not used to int erpret this result as normal/abnormal . [facility] HospitalDyccbwjNLAENRXNR7226-59-10 06:42:00 Test Item Value Reference Range Interpretation Comments B/C Ratio (test code = B/C Ratio) 8 6-25 N [facility] HospitalKuyxkrzJUPHJVNSH8320-22-99 06:42:00 Test Item Value Reference Range Interpretation Comments Globulin (test code = Globulin) 2.5 2.0-4.0 N [facility] HospitalTpodjibJKLEXMAJG5142-62-43 06:42:00 Test Item Value Reference Range Interpretation Comments AGAP (test code = AGAP) 16.9 10.0-20.0 N [facility] HospitalTotepupKNTYRFBUG5336-03-77 06:42:00 Test Item Value Reference Range Interpretation Comments A/G Ratio (test code = A/G Ratio) 1.6 0.7-1.6 N [facility] HospitalQshfkafDSDBGXAGI2662-00-99 06:42:00 Test Item Value Reference Range Interpretation Comments eGFR (test code = eGFR) 105 [facility] HospitalAajhojbZLIOIESXO1039-36-28 06:42:00 Test Item Value Reference Range Interpretation Comments Glucose Lvl (test code = Glucose Lvl) 109 70-99 H [facility] HospitalAugpojwFQYCSIAHM8265-16-53 06:42:00 Test Item Value Reference Range Interpretation Comments ALT (test code = ALT) 26 See_Comment N [Auto mated message] The system which ge nerated this result transmit abdelrahman reference range : <=65. The reference range was not used to interpr et this result as gurpreet l/abnormal. [facility] AustinZugeextOMZBDTITI5307-38-27 06:42:00 Test Item Value Reference Range Interpretation Comments Albumin Lvl (test code = Albumin Lvl) 3.9 3.5-5.0 N [facility] AustinOusahuaBLBRVEXMZ0268-05-10 06:42:00 Test Item Value Reference Range Interpretation Comments Alk Phos (test code = Alk Phos) 47 39-136 N [facility] AustinTtgcumkERCKZMQQY9049-47-09 06:42:00 Test Item Value Reference Range Interpretation Comments Total Protein (test code = Total 6.4 6.4-8.4 N Protein) [facility] HospitalRadksvfUJYRFIAFN8978-58-67 06:42:00 Test Item Value Reference Range Interpretation Comments AST (test code = AST) 31 See_Comment N [Auto mated message] The system which ge nerated this result transmit abdelrahman reference range : <=37. The reference range was not used to interpr et this result as gurpreet l/abnormal. [facility] AustinVgakumqHJCMMGJKZ1835-62-16 06:42:00 Test Item Value Reference Range Interpretation Comments Calcium Lvl (test code = Calcium Lvl) 9.0 8.5-10.5 N [facility] AustinHciaioyIGQQRQTIM4546-95-42 06:42:00 Test Item Value Reference Range Interpretation Comments Bili Total (test code = Bili Total) 0.4 0.2-1.3 N [facility] AustinLanemazYBGJTGVQF9696-19-28 06:42:00 Test Item Value Reference Range Interpretation Comments Chloride Lvl (test code = Chloride Lvl) 104 95-109 N [facility] AustinQsduhqvBWULXELMR4064-93-55 06:42:00 Test Item Value Reference Range Interpretation Comments CO2 (test code = CO2) 24 24-32 N [facility] AustinPsmaibjFAOTAWXKA3592-14-29 06:42:00 Test Item Value Reference Range Interpretation Comments Sodium Lvl (test code = Sodium Lvl) 141 135-145 N [facility] AustinUooscklPQPCFZSAY2625-56-25 06:42:00 Test Item Value Reference Range Interpretation Comments Potassium Lvl (test code = Potassium 3.9 3.5-5.1 N Lvl) [facility] HospitalInktnmcGNWGTTDFY2150-53-60 06:42:00 Test Item Value Reference Range Interpretation Comments BUN (test code = BUN) 8 7-22 N [facility] HospitalXoywzxsEUTVMUTJN5713-43-94 06:42:00 Test Item Value Reference Range Interpretation Comments Creatinine Lvl (test code = Creatinine 1.0 0.5-1.4 N Lvl) [facility] HospitalZvwjjjeJCKUAPDROL6482-01-84 06:42:00 Test Item Value Reference Range Interpretation Comments MCH (test code = MCH) 30.2 pg 27.0-31.0 N [facility] HospitalZkipnmkQIYGOBYQVZ1547-40-66 06:42:00 Test Item Value Reference Range Interpretation Comments Platelet (test code = Platelet) 134 133-450 N [facility] HospitalSgekcxmTTZBVZPEZP8557-79-46 06:42:00 Test Item Value Reference Range Interpretation Comments MPV (test code = MPV) 10.1 7.4-10.4 N [facility] HospitalPjycmjfZRZNIVMVRA7016-33-93 06:42:00 Test Item Value Reference Range Interpretation Comments RDW (test code = RDW) 13.4 11.5-14.5 N [facility] HospitalEbwjlbdFDZAZYHFUT0449-81-83 06:42:00 Test Item Value Reference Range Interpretation Comments Hct (test code = Hct) 39.4 42.0-54.0 L [facility] HospitalPufvazbXLXAKJEIMB4467-28-63 06:42:00 Test Item Value Reference Range Interpretation Comments MCV (test code = MCV) 89.5 80.0-94.0 N [facility] HospitalZdujdrpPHGKGBXGUC4448-72-13 06:42:00 Test Item Value Reference Range Interpretation Comments Hgb (test code = Hgb) 13.3 14.0-18.0 L [facility] HospitalRkpcajaHTNTZXQGHI9645-28-62 06:42:00 Test Item Value Reference Range Interpretation Comments MCHC (test code = MCHC) 33.7 32.0-36.0 N [facility] HospitalUklkoheBUMYMMQWSS6137-17-23 06:42:00 Test Item Value Reference Range Interpretation Comments WBC (test code = WBC) 12.5 3.7-10.4 H [facility] HospitalJoxuvkaOEEDAUZJUP1673-06-55 06:42:00 Test Item Value Reference Range Interpretation Comments RBC (test code = RBC) 4.40 4.70-6.10 L [facility] HospitalEnsfiqoZBVMHQWKRZ4917-59-33 06:42:00 Test Item Value Reference Range Interpretation Comments Lymphocytes (test code = Lymphocytes) 9.4 20.0-40.0 L [facility] HospitalJkbkfaoDVMGVUTHAO7301-48-83 06:42:00 Test Item Value Reference Range Interpretation Comments Monocytes (test code = Monocytes) 10.8 2.0-12.0 N [facility] HospitalQjydypyAJIYPODHPY0962-87-02 06:42:00 Test Item Value Reference Range Interpretation Comments Segs (test code = Segs) 79.6 45.0-75.0 H [facility] HospitalJmrljdcLLCLLQBISF0297-63-20 06:42:00 Test Item Value Reference Range Interpretation Comments Eosinophils (test code = 0.1 See_Comment N [A utomated message] The Eosinophils) system which ge nerated this result tra nsmitted reference range : <=4.0. The reference r annemarie was not used to int erpret this result as normal/abnormal . [facility] HospitalRpawhwxWMHTETNGEW4476-48-52 06:42:00 Test Item Value Reference Range Interpretation Comments Basophils (test code = 0.1 See_Comment N [Aut omated message] The Basophils) system which ge nerated this result tra nsmitted reference range : <=1.0. The reference r annemarie was not used to int erpret this result as normal/abnormal . [facility] HospitalRurvkggBMBMTPJKCN6682-67-19 06:42:00 Test Item Value Reference Range Interpretation Comments Segs-Bands # (test code = Segs-Bands #) 9.9 1.5-8.1 H [facility] HospitalVtmadorJKOMNCKYCB5220-46-05 06:42:00 Test Item Value Reference Range Interpretation Comments Lymphocytes # (test code = Lymphocytes 1.2 1.0-5.5 N #) [facility] HospitalBwdvxduVVVOXFRSCT5029-35-70 06:42:00 Test Item Value Reference Range Interpretation Comments Monocytes # (test code 1.3 See_Comment H [Aut omated message] The = Monocytes #) system which generated this result tra nsmitted reference range : <=0.8. The reference r annemarie was not used to int erpret this result as normal/abnormal . [facility] HospitalHpoxesjKZBFAJDTQ5825-80-29 09:00:49 Test Item Value Reference Range Interpretation Comments Lactic Acid Lvl (test code = Lactic 2.0 0.5-2.2 N Acid Lvl) [facility] HospitalLxbewnhMVYUIVOHY0780-84-10 09:00:49 Test Item Value Reference Range Interpretation Comments Lactic Acid Lvl (test code = Lactic 2.0 0.5-2.2 N Acid Lvl) [facility] HospitalNplmtlaKHBEHLYKZ7181-14-29 09:00:49 Test Item Value Reference Range Interpretation Comments Lactic Acid Lvl (test code = Lactic 2.0 0.5-2.2 N Acid Lvl) [facility] HospitalFlclhzaDJYYWMWCO1297-61-63 09:00:49 Test Item Value Reference Range Interpretation Comments Lactic Acid Lvl (test code = Lactic 2.0 0.5-2.2 N Acid Lvl) [facility] HospitalMwzcrogPZXDYZHCN7101-72-75 09:00:49 Test Item Value Reference Range Interpretation Comments Lactic Acid Lvl (test code = Lactic 2.0 0.5-2.2 N Acid Lvl) [facility] HospitalNosirpgQFRFZMZRW7795-28-10 09:00:49 Test Item Value Reference Range Interpretation Comments Lactic Acid Lvl (test code = Lactic 2.0 0.5-2.2 N Acid Lvl) [facility] HospitalGyomxzxJQFDYKRFL3950-08-59 09:00:49 Test Item Value Reference Range Interpretation Comments Lactic Acid Lvl (test code = Lactic 2.0 0.5-2.2 N Acid Lvl) [facility] HospitalVgplkytKVVUDGGWW6689-38-36 09:00:49 Test Item Value Reference Range Interpretation Comments Lactic Acid Lvl (test code = Lactic 2.0 0.5-2.2 N Acid Lvl) [facility] HospitalSuxyrmiDJZKFWGDK8336-86-14 09:00:49 Test Item Value Reference Range Interpretation Comments Lactic Acid Lvl (test code = Lactic 2.0 0.5-2.2 N Acid Lvl) [facility] HospitalAzbdsaeFLZQAGFBR7494-51-08 09:00:49 Test Item Value Reference Range Interpretation Comments Lactic Acid Lvl (test code = Lactic 2.0 0.5-2.2 N Acid Lvl) [facility] HospitalPrtwkrfBKPCYNUZB6954-55-59 03:30:38 Test Item Value Reference Range Interpretation Comments UDS Note (test code = See Note 5(12/28/2012 N UDS Note) 22:30:38) [facility] HospitalVfahnvlPWRFMZOGI8033-81-04 03:30:38 Test Item Value Reference Range Interpretation Comments U Phencyc Scr (test Negative code = U Phencyc Scr) *NA*(12/28/2012 22:30:38) [facility] HospitalOvnuljgDQDCNAPQF0313-98-91 03:30:38 Test Item Value Reference Range Interpretation Comments U Opiate Scr (test Positive A code = U Opiate Scr) *ABN*(12/28/2012 22:30:38) [facility] HospitalGcylfbfBLNEGTOLN0018-86-61 03:30:38 Test Item Value Reference Range Interpretation Comments U Cannab Scr (test Negative code = U Cannab Scr) *NA*(12/28/2012 22:30:38) [facility] HospitalZgdbmsdVRZLSRPWU1887-90-55 03:30:38 Test Item Value Reference Range Interpretation Comments U Benzodia Scr (test Negative code = U Benzodia Scr) *NA*(12/28/2012 22:30:38) [facility] HospitalJyhxoiwNFRSYQWXE9341-12-01 03:30:38 Test Item Value Reference Range Interpretation Comments U Odalys Scr (test code Negative *NA*(12/28/2012 = U Odalys Scr) 22:30:38) [facility] HospitalQdivmxtLVBGKMGWK5611-42-00 03:30:38 Test Item Value Reference Range Interpretation Comments U Amph Scr (test code Negative *NA*(12/28/2012 = U Amph Scr) 22:30:38) [facility] HospitalBdoutqyPFVJPAOMD1145-69-62 03:30:38 Test Item Value Reference Range Interpretation Comments U Cocaine Scr (test Negative code = U Cocaine Scr) *NA*(12/28/2012 22:30:38) [facility] HospitalDhttsjwWXOMVJBAHA3767-14-59 03:30:38 Test Item Value Reference Range Interpretation Comments UA Ketones (test code Negative mg/dL = UA Ketones) *NA*(12/28/2012 22:30:38) [facility] HospitalUntokqiKQEIPZHWEI8849-92-20 03:30:38 Test Item Value Reference Range Interpretation Comments UA Bili (test code = Negative *NA*(12/28/2012 UA Bili) 22:30:38) [facility] HospitalHphrrykESKUFMGWHL0130-71-89 03:30:38 Test Item Value Reference Range Interpretation Comments UA Nitrite (test code Negative (12/28/2012 N = UA Nitrite) 22:30:38) [facility]GygpvnkKSRMANHFPW4592-55-38 03:30:38 Test Item Value Reference Range Interpretation Comments UA Urobilinogen (test code = UA 0.2 0.1-1.0 N Urobilinogen) [facility] HospitalXmnuudmTUCBPJDMQP3865-78-13 03:30:38 Test Item Value Reference Range Interpretation Comments UA Blood (test code = Negative (12/28/2012 N UA Blood) 22:30:38) [facility] HospitalDcptybdMPSSQFHNAP1637-50-07 03:30:38 Test Item Value Reference Range Interpretation Comments UA Leuk Est (test Negative (12/28/2012 N code = UA Leuk Est) 22:30:38) [facility] HospitalTzfnepfPCEREBGIHB9124-00-84 03:30:38 Test Item Value Reference Range Interpretation Comments UA pH (test code = UA pH) 7.0 1 5.0-8.[address] [facility] HospitalHvhkpjwPOKFWQCZHM2092-27-92 03:30:38 Test Item Value Reference Range Interpretation Comments UA Glucose (test code Negative mg/dL N = UA Glucose) (12/28/2012 22:30:38) [facility] HospitalWxmellaFUZEQIYXLD9240-04-45 03:30:38 Test Item Value Reference Range Interpretation Comments UA Spec Grav (test code = UA Spec 1.010 1 N Grav) [facility] HospitalXiorfrqHFBLADYUOQ9227-87-75 03:30:38 Test Item Value Reference Range Interpretation Comments UA Protein (test code Negative mg/dL N = UA Protein) (12/28/2012 22:30:38) [facility] HospitalYkjdgfsNNGSBDXVER5909-06-75 03:30:38 Test Item Value Reference Range Interpretation Comments UA Turbidity (test code = Clear (12/28/2012 N UA Turbidity) 22:30:38) [facility] HospitalLovcljdPSYAZKEDKL4424-12-35 03:30:38 Test Item Value Reference Range Interpretation Comments UA Color (test code = Yellow *NA*(12/28/2012 UA Color) 22:30:38) [facility] HospitalEpzahgtUXELSGRFF1320-37-89 03:30:38 Test Item Value Reference Range Interpretation Comments UDS Note (test code = See Note 5(12/28/2012 N UDS Note) 22:30:38) [facility] HospitalEeusygvILJHGVGAO1686-37-65 03:30:38 Test Item Value Reference Range Interpretation Comments U Phencyc Scr (test Negative code = U Phencyc Scr) *NA*(12/28/2012 22:30:38) [facility] HospitalCruebadHYEIWOCBN0947-55-46 03:30:38 Test Item Value Reference Range Interpretation Comments U Opiate Scr (test Positive A code = U Opiate Scr) *ABN*(12/28/2012 22:30:38) [facility] HospitalRxhfdpdSGQBEBNCO1690-25-49 03:30:38 Test Item Value Reference Range Interpretation Comments U Cannab Scr (test Negative code = U Cannab Scr) *NA*(12/28/2012 22:30:38) [facility] HospitalDblptgfDXZZOHYNF8663-22-54 03:30:38 Test Item Value Reference Range Interpretation Comments U Benzodia Scr (test Negative code = U Benzodia Scr) *NA*(12/28/2012 22:30:38) [facility] HospitalUozkcelKLRSAQXPX9339-01-98 03:30:38 Test Item Value Reference Range Interpretation Comments U Odalys Scr (test code Negative *NA*(12/28/2012 = U Odalys Scr) 22:30:38) [facility] HospitalLgpmpsnESDFIPKGO0771-00-58 03:30:38 Test Item Value Reference Range Interpretation Comments U Amph Scr (test code Negative *NA*(12/28/2012 = U Amph Scr) 22:30:38) [facility] HospitalTatogcoHGROMNYQE1073-03-09 03:30:38 Test Item Value Reference Range Interpretation Comments U Cocaine Scr (test Negative code = U Cocaine Scr) *NA*(12/28/2012 22:30:38) [facility] HospitalIjtrpyqFYWNCOFDXE1718-06-61 03:30:38 Test Item Value Reference Range Interpretation Comments UA Ketones (test code Negative mg/dL = UA Ketones) *NA*(12/28/2012 22:30:38) [facility] HospitalOgfwvtrMATFHQJXKZ9800-69-79 03:30:38 Test Item Value Reference Range Interpretation Comments UA Bili (test code = Negative *NA*(12/28/2012 UA Bili) 22:30:38) [facility] HospitalUqyluiySSHOQDUJNQ2793-78-01 03:30:38 Test Item Value Reference Range Interpretation Comments UA Nitrite (test code Negative (12/28/2012 N = UA Nitrite) 22:30:38) [facility] HospitalZkerezkWNSCIBZXZW1096-07-81 03:30:38 Test Item Value Reference Range Interpretation Comments UA Urobilinogen (test code = UA 0.2 0.1-1.0 N Urobilinogen) [facility] HospitalDxjzgryLNHABCVJCS1680-10-99 03:30:38 Test Item Value Reference Range Interpretation Comments UA Blood (test code = Negative (12/28/2012 N UA Blood) 22:30:38) [facility] HospitalSfmlxpuWZNJMWHPGW2424-06-05 03:30:38 Test Item Value Reference Range Interpretation Comments UA Leuk Est (test Negative (12/28/2012 N code = UA Leuk Est) 22:30:38) [facility] HospitalKlzhgtcHFBLTAYFZG5886-22-78 03:30:38 Test Item Value Reference Range Interpretation Comments UA pH (test code = UA pH) 7.0 1 5.0-8.[address] [facility] HospitalUljudukSMLTCOSMMD5775-92-82 03:30:38 Test Item Value Reference Range Interpretation Comments UA Glucose (test code Negative mg/dL N = UA Glucose) (12/28/2012 22:30:38) [facility] HospitalUjqdxxsUQNBAZYEQY4463-55-23 03:30:38 Test Item Value Reference Range Interpretation Comments UA Spec Grav (test code = UA Spec 1.010 1 N Grav) [facility] HospitalEbmhotsQXVUKFMIZN5629-17-24 03:30:38 Test Item Value Reference Range Interpretation Comments UA Protein (test code Negative mg/dL N = UA Protein) (12/28/2012 22:30:38) [facility] HospitalZsfsbatCIYPYIMZVM6114-87-92 03:30:38 Test Item Value Reference Range Interpretation Comments UA Turbidity (test code = Clear (12/28/2012 N UA Turbidity) 22:30:38) [facility] HospitalIcgabnvGJGYCDFRTW7963-37-33 03:30:38 Test Item Value Reference Range Interpretation Comments UA Color (test code = Yellow *NA*(12/28/2012 UA Color) 22:30:38) [facility] HospitalYrqymjpNDPUPRSIB9379-68-65 03:30:38 Test Item Value Reference Range Interpretation Comments UDS Note (test code = See Note 5(12/28/2012 N UDS Note) 22:30:38) [facility] HospitalTgptcayHDFMHQWMN6584-70-35 03:30:38 Test Item Value Reference Range Interpretation Comments U Phencyc Scr (test Negative code = U Phencyc Scr) *NA*(12/28/2012 22:30:38) [facility] HospitalQdkqsgsLRGCJWOVX5903-83-09 03:30:38 Test Item Value Reference Range Interpretation Comments U Opiate Scr (test Positive A code = U Opiate Scr) *ABN*(12/28/2012 22:30:38) [facility] HospitalIrkjrjnLSIVIJCFZ1379-82-38 03:30:38 Test Item Value Reference Range Interpretation Comments U Cannab Scr (test Negative code = U Cannab Scr) *NA*(12/28/2012 22:30:38) [facility] HospitalDheciazLAQYICCJR2544-34-88 03:30:38 Test Item Value Reference Range Interpretation Comments U Benzodia Scr (test Negative code = U Benzodia Scr) *NA*(12/28/2012 22:30:38) [facility] HospitalPfabqspYGKNKBGUF6317-69-81 03:30:38 Test Item Value Reference Range Interpretation Comments U Odalys Scr (test code Negative *NA*(12/28/2012 = U Odalys Scr) 22:30:38) [id number] 03:30:38 Test Item Value Reference Range Interpretation Comments U Amph Scr (test code Negative *NA*(12/28/2012 = U Amph Scr) 22:30:38) [facility] HospitalEggjogsZLAPHFKUQ5722-84-50 03:30:38 Test Item Value Reference Range Interpretation Comments U Cocaine Scr (test Negative code = U Cocaine Scr) *NA*(12/28/2012 22:30:38) [facility] HospitalTlsiupdLYLYVESEUK8460-59-91 03:30:38 Test Item Value Reference Range Interpretation Comments UA Ketones (test code Negative mg/dL = UA Ketones) *NA*(12/28/2012 22:30:38) [facility] HospitalUqlurbtAKDNUTRPSU0966-07-10 03:30:38 Test Item Value Reference Range Interpretation Comments UA Bili (test code = Negative *NA*(12/28/2012 UA Bili) 22:30:38) [facility] HospitalWlfmkmzNHELKRZZDH8462-28-27 03:30:38 Test Item Value Reference Range Interpretation Comments UA Nitrite (test code Negative (12/28/2012 N = UA Nitrite) 22:30:38) [facility] HospitalHqwidfwOZVUVDETXR2681-81-89 03:30:38 Test Item Value Reference Range Interpretation Comments UA Urobilinogen (test code = UA 0.2 0.1-1.0 N Urobilinogen) [facility] HospitalXwgwsomGTAAHBFUQG3075-51-61 03:30:38 Test Item Value Reference Range Interpretation Comments UA Blood (test code = Negative (12/28/2012 N UA Blood) 22:30:38) [facility] HospitalCymxtmlLILLPQYVNG3314-14-42 03:30:38 Test Item Value Reference Range Interpretation Comments UA Leuk Est (test Negative (12/28/2012 N code = UA Leuk Est) 22:30:38) [facility]IugbcnyLJOECPDQAK9088-79-92 03:30:38 Test Item Value Reference Range Interpretation Comments UA pH (test code = UA pH) 7.0 1 5.0-8.0 N [facility] HospitalUsluwvmJVIBHQDNHE7088-92-29 03:30:38 Test Item Value Reference Range Interpretation Comments UA Glucose (test code Negative mg/dL N = UA Glucose) (12/28/2012 22:30:38) [facility] HospitalTlvjnipYQDXNXYHQR6919-81-45 03:30:38 Test Item Value Reference Range Interpretation Comments UA Spec Grav (test code = UA Spec 1.010 1 N Grav) [facility] HospitalPcxlhqnMLVJDJJAVP7752-10-15 03:30:38 Test Item Value Reference Range Interpretation Comments UA Protein (test code Negative mg/dL N = UA Protein) (12/28/2012 22:30:38) [facility] HospitalTnnunstKHQMKXLKEK0961-90-25 03:30:38 Test Item Value Reference Range Interpretation Comments UA Turbidity (test code = Clear (12/28/2012 N UA Turbidity) 22:30:38) [facility] HospitalQjnjnyaTCCBNMBWMZ1589-34-69 03:30:38 Test Item Value Reference Range Interpretation Comments UA Color (test code = Yellow *NA*(12/28/2012 UA Color) 22:30:38) [facility] HospitalUjrldurOGATSYKQA6860-11-61 03:30:38 Test Item Value Reference Range Interpretation Comments UDS Note (test code = See Note 5(12/28/2012 N UDS Note) 22:30:38) [facility] HospitalSomoisfKYNKOEZWH2859-39-01 03:30:38 Test Item Value Reference Range Interpretation Comments U Phencyc Scr (test Negative code = U Phencyc Scr) *NA*(12/28/2012 22:30:38) [facility] HospitalQegludbJWWSPJEMV9496-20-56 03:30:38 Test Item Value Reference Range Interpretation Comments U Opiate Scr (test Positive A code = U Opiate Scr) *ABN*(12/28/2012 22:30:38) [facility] HospitalOvmhtfeHOXWCAQPS1159-17-18 03:30:38 Test Item Value Reference Range Interpretation Comments U Cannab Scr (test Negative code = U Cannab Scr) *NA*(12/28/2012 22:30:38) [facility] HospitalHzmidlzMLFYAYEGN7805-41-64 03:30:38 Test Item Value Reference Range Interpretation Comments U Benzodia Scr (test Negative code = U Benzodia Scr) *NA*(12/28/2012 22:30:38) [facility] HospitalUrhxsqoQCSQVNXZX9314-49-62 03:30:38 Test Item Value Reference Range Interpretation Comments U Odalys Scr (test code Negative *NA*(12/28/2012 = U Odalys Scr) 22:30:38) [facility] HospitalGzefoziRUAJRXFPH2752-69-61 03:30:38 Test Item Value Reference Range Interpretation Comments U Amph Scr (test code Negative *NA*(12/28/2012 = U Amph Scr) 22:30:38) [facility] HospitalJplbdkwXBFECVLXE8418-39-22 03:30:38 Test Item Value Reference Range Interpretation Comments U Cocaine Scr (test Negative code = U Cocaine Scr) *NA*(12/28/2012 22:30:38) [facility] HospitalGqrwrbkMUUCMOGSFV8617-92-14 03:30:38 Test Item Value Reference Range Interpretation Comments UA Ketones (test code Negative mg/dL = UA Ketones) *NA*(12/28/2012 22:30:38) [facility] HospitalVynvuweJHCEIXALRT2614-47-12 03:30:38 Test Item Value Reference Range Interpretation Comments UA Bili (test code = Negative *NA*(12/28/2012 UA Bili) 22:30:38) [facility] HospitalYazfbkbQBKSIZHUKG5671-60-15 03:30:38 Test Item Value Reference Range Interpretation Comments UA Nitrite (test code Negative (12/28/2012 N = UA Nitrite) 22:30:38) [facility] HospitalNrrboxxXFSHHSFLUZ8033-11-94 03:30:38 Test Item Value Reference Range Interpretation Comments UA Urobilinogen (test code = UA 0.2 0.1-1.0 N Urobilinogen) [facility] HospitalOzcuikeEDJYNALWBD4555-83-22 03:30:38 Test Item Value Reference Range Interpretation Comments UA Blood (test code = Negative (12/28/2012 N UA Blood) 22:30:38) [facility] HospitalTpzreieXXNNRMKGCM1062-38-71 03:30:38 Test Item Value Reference Range Interpretation Comments UA Leuk Est (test Negative (12/28/2012 N code = UA Leuk Est) 22:30:38) [facility] HospitalOvskjelQZGULNYVLH1713-40-57 03:30:38 Test Item Value Reference Range Interpretation Comments UA pH (test code = UA pH) 7.0 1 5.0-8.[address] [facility] HospitalDrrnjuhCTBRYRJOKM2598-86-56 03:30:38 Test Item Value Reference Range Interpretation Comments UA Glucose (test code Negative mg/dL N = UA Glucose) (12/28/2012 22:30:38) [facility] HospitalLetmyolSIEIHJBNWA0418-75-86 03:30:38 Test Item Value Reference Range Interpretation Comments UA Spec Grav (test code = UA Spec 1.010 1 N Grav) [facility] HospitalLppudcvXZLOJWRISA2224-85-51 03:30:38 Test Item Value Reference Range Interpretation Comments UA Protein (test code Negative mg/dL N = UA Protein) (12/28/2012 22:30:38) [facility] HospitalMlwhutvGRFYPLKSPS7574-88-94 03:30:38 Test Item Value Reference Range Interpretation Comments UA Turbidity (test code = Clear (12/28/2012 N UA Turbidity) 22:30:38) [facility] HospitalXxddwxoZDVZPODPCR7664-18-42 03:30:38 Test Item Value Reference Range Interpretation Comments UA Color (test code = Yellow *NA*(12/28/2012 UA Color) 22:30:38) [facility] HospitalKajvgkeYRSGWTVCA4036-78-03 03:30:38 Test Item Value Reference Range Interpretation Comments UDS Note (test code = See Note 5(12/28/2012 N UDS Note) 22:30:38) [facility] HospitalGjgyurnFPNHLQVBZ9347-66-54 03:30:38 Test Item Value Reference Range Interpretation Comments U Phencyc Scr (test Negative code = U Phencyc Scr) *NA*(12/28/2012 22:30:38) [facility] HospitalQjccipjIGQTAVCSO2855-13-34 03:30:38 Test Item Value Reference Range Interpretation Comments U Opiate Scr (test Positive A code = U Opiate Scr) *ABN*(12/28/2012 22:30:38) [facility] HospitalIbytwbzOYRNFSHXF6209-66-91 03:30:38 Test Item Value Reference Range Interpretation Comments U Cannab Scr (test Negative code = U Cannab Scr) *NA*(12/28/2012 22:30:38) [facility] HospitalBlxxezgYYBYMETKB4206-67-12 03:30:38 Test Item Value Reference Range Interpretation Comments U Benzodia Scr (test Negative code = U Benzodia Scr) *NA*(12/28/2012 22:30:38) [facility] HospitalItgurzmDJAAPLCBV7230-41-52 03:30:38 Test Item Value Reference Range Interpretation Comments U Odalys Scr (test code Negative *NA*(12/28/2012 = U Odalys Scr) 22:30:38) [facility] HospitalWmmghmqTCXOHDMVR4918-49-78 03:30:38 Test Item Value Reference Range Interpretation Comments U Amph Scr (test code Negative *NA*(12/28/2012 = U Amph Scr) 22:30:38) [facility] HospitalYprsekuFAZWHUHSS8188-02-25 03:30:38 Test Item Value Reference Range Interpretation Comments U Cocaine Scr (test Negative code = U Cocaine Scr) *NA*(12/28/2012 22:30:38) [facility] HospitalQmatecqWZPWFYYAFT1166-64-60 03:30:38 Test Item Value Reference Range Interpretation Comments UA Ketones (test code Negative mg/dL = UA Ketones) *NA*(12/28/2012 22:30:38) [facility] HospitalZxjijqtMANOKINAGG3622-51-43 03:30:38 Test Item Value Reference Range Interpretation Comments UA Bili (test code = Negative *NA*(12/28/2012 UA Bili) 22:30:38) [facility] HospitalDutizicUEOCBYEVUS8725-29-23 03:30:38 Test Item Value Reference Range Interpretation Comments UA Nitrite (test code Negative (12/28/2012 N = UA Nitrite) 22:30:38) [facility] HospitalIzckffuTNHLXUKKHT7375-96-60 03:30:38 Test Item Value Reference Range Interpretation Comments UA Urobilinogen (test code = UA 0.2 0.1-1.0 N Urobilinogen) [facility] HospitalDresialUGFCUEYECK7998-83-07 03:30:38 Test Item Value Reference Range Interpretation Comments UA Blood (test code = Negative (12/28/2012 N UA Blood) 22:30:38) [facility] HospitalThrthvfMSWJMLKFDX3199-10-43 03:30:38 Test Item Value Reference Range Interpretation Comments UA Leuk Est (test Negative (12/28/2012 N code = UA Leuk Est) 22:30:38) [facility] HospitalMfsdccnFFAUWDMSPZ8588-32-44 03:30:38 Test Item Value Reference Range Interpretation Comments UA pH (test code = UA pH) 7.0 1 5.0-8.[address] [facility] HospitalJvjvfgkQCFVHCUYCX8243-16-68 03:30:38 Test Item Value Reference Range Interpretation Comments UA Glucose (test code Negative mg/dL N = UA Glucose) (12/28/2012 22:30:38) [facility] HospitalEnkvmyyWQFGSXLUIO3719-27-68 03:30:38 Test Item Value Reference Range Interpretation Comments UA Spec Grav (test code = UA Spec 1.010 1 N Grav) [facility] HospitalVbwomalYSBKZBBCFE9913-81-63 03:30:38 Test Item Value Reference Range Interpretation Comments UA Protein (test code Negative mg/dL N = UA Protein) (12/28/2012 22:30:38) [facility] HospitalUchozwzZPSEMQCKKR4497-27-80 03:30:38 Test Item Value Reference Range Interpretation Comments UA Turbidity (test code = Clear (12/28/2012 N UA Turbidity) 22:30:38) [facility] HospitalFhdsnquUCCSXYIXPD7873-27-43 03:30:38 Test Item Value Reference Range Interpretation Comments UA Color (test code = Yellow *NA*(12/28/2012 UA Color) 22:30:38) [facility] HospitalKfdzepnQVAEOXHQE2494-05-07 03:30:38 Test Item Value Reference Range Interpretation Comments UDS Note (test code = See Note 5(12/28/2012 N UDS Note) 22:30:38) [facility] HospitalCrdytxcLNZHYSNXG4767-45-67 03:30:38 Test Item Value Reference Range Interpretation Comments U Phencyc Scr (test Negative code = U Phencyc Scr) *NA*(12/28/2012 22:30:38) [facility] HospitalUgecjluDJFQZZOBX6063-89-73 03:30:38 Test Item Value Reference Range Interpretation Comments U Opiate Scr (test Positive A code = U Opiate Scr) *ABN*(12/28/2012 22:30:38) [facility] HospitalJkdhwfrWEBNPVEZS6723-41-36 03:30:38 Test Item Value Reference Range Interpretation Comments U Cannab Scr (test Negative code = U Cannab Scr) *NA*(12/28/2012 22:30:38) [facility] HospitalYmiwbpsWNPACCDGH4093-69-51 03:30:38 Test Item Value Reference Range Interpretation Comments U Benzodia Scr (test Negative code = U Benzodia Scr) *NA*(12/28/2012 22:30:38) [facility] HospitalTiodbsuVLIVYSYJX2542-93-20 03:30:38 Test Item Value Reference Range Interpretation Comments U Odalys Scr (test code Negative *NA*(12/28/2012 = U Odalys Scr) 22:30:38) [facility] HospitalFiobzmeVZTGKOEFW6089-05-04 03:30:38 Test Item Value Reference Range Interpretation Comments U Amph Scr (test code Negative *NA*(12/28/2012 = U Amph Scr) 22:30:38) [facility] HospitalHhuwhcsNMCXGAEWV8512-81-30 03:30:38 Test Item Value Reference Range Interpretation Comments U Cocaine Scr (test Negative code = U Cocaine Scr) *NA*(12/28/2012 22:30:38) [facility] HospitalGvljfxaPTMGSVTEVB9018-26-92 03:30:38 Test Item Value Reference Range Interpretation Comments UA Ketones (test code Negative mg/dL = UA Ketones) *NA*(12/28/2012 22:30:38) [facility] HospitalHqyxhhqEDSIKZMHLT0610-57-42 03:30:38 Test Item Value Reference Range Interpretation Comments UA Bili (test code = Negative *NA*(12/28/2012 UA Bili) 22:30:38) [facility]dpbzqpRPNINPQYIR1161-32-07 03:30:38 Test Item Value Reference Range Interpretation Comments UA Nitrite (test code Negative (12/28/2012 N = UA Nitrite) 22:30:38) [facility]JvaefknXNSTPQTDCJ4394-03-84 03:30:38 Test Item Value Reference Range Interpretation Comments UA Urobilinogen (test code = UA 0.2 0.1-1.0 N Urobilinogen) [facility] HospitalOybbdcmQKFWKYQMNX8538-19-34 03:30:38 Test Item Value Reference Range Interpretation Comments UA Blood (test code = Negative (12/28/2012 N UA Blood) 22:30:38) [facility] HospitalDyfmrzuOFSLYWLRWL1398-01-14 03:30:38 Test Item Value Reference Range Interpretation Comments UA Leuk Est (test Negative (12/28/2012 N code = UA Leuk Est) 22:30:38) [facility] HospitalHrlihaiTCDCYWODCL4066-80-12 03:30:38 Test Item Value Reference Range Interpretation Comments UA pH (test code = UA pH) 7.0 1 5.0-8.[address] [facility] HospitalWdgfapqISDJDIRMRK0826-36-74 03:30:38 Test Item Value Reference Range Interpretation Comments UA Glucose (test code Negative mg/dL N = UA Glucose) (12/28/2012 22:30:38) [facility] HospitalKnrwkrdWSIELUVVLH2667-71-69 03:30:38 Test Item Value Reference Range Interpretation Comments UA Spec Grav (test code = UA Spec 1.010 1 N Grav) [facility] HospitalAbykfccYVLAEJYOFP9040-55-97 03:30:38 Test Item Value Reference Range Interpretation Comments UA Protein (test code Negative mg/dL N = UA Protein) (12/28/2012 22:30:38) [facility] HospitalAczewzkXLNEHFADVX0269-28-36 03:30:38 Test Item Value Reference Range Interpretation Comments UA Turbidity (test code = Clear (12/28/2012 N UA Turbidity) 22:30:38) [facility] HospitalUbahzwxBKFAVSIYOJ8010-12-28 03:30:38 Test Item Value Reference Range Interpretation Comments UA Color (test code = Yellow *NA*(12/28/2012 UA Color) 22:30:38) [facility] HospitalRsesoiuQNFHHHZZM7327-04-81 03:30:38 Test Item Value Reference Range Interpretation Comments UDS Note (test code = See Note 5(12/28/2012 N UDS Note) 22:30:38) [facility] HospitalCyvxeboVGZEABELG8968-58-60 03:30:38 Test Item Value Reference Range Interpretation Comments U Phencyc Scr (test Negative code = U Phencyc Scr) *NA*(12/28/2012 22:30:38) [facility] HospitalBzqdgmxLLNMVXRIJ5248-44-90 03:30:38 Test Item Value Reference Range Interpretation Comments U Opiate Scr (test Positive A code = U Opiate Scr) *ABN*(12/28/2012 22:30:38) [facility] HospitalBbtcjcnCAUVPFMTR3994-45-75 03:30:38 Test Item Value Reference Range Interpretation Comments U Cannab Scr (test Negative code = U Cannab Scr) *NA*(12/28/2012 22:30:38) [facility] HospitalLosgwvzHPHRIKMOY1097-46-39 03:30:38 Test Item Value Reference Range Interpretation Comments U Benzodia Scr (test Negative code = U Benzodia Scr) *NA*(12/28/2012 22:30:38) [facility] HospitalWhagzasRTQHLPBNT3596-43-16 03:30:38 Test Item Value Reference Range Interpretation Comments U Odalys Scr (test code Negative *NA*(12/28/2012 = U Odalys Scr) 22:30:38) [facility] HospitalFjgeocmGXBXFVZRB2958-17-00 03:30:38 Test Item Value Reference Range Interpretation Comments U Amph Scr (test code Negative *NA*(12/28/2012 = U Amph Scr) 22:30:38) [facility] HospitalFbohkviVGWKHVZDF2063-88-16 03:30:38 Test Item Value Reference Range Interpretation Comments U Cocaine Scr (test Negative code = U Cocaine Scr) *NA*(12/28/2012 22:30:38) [facility] HospitalDxvrkhaTUHRDDKIMR2486-90-36 03:30:38 Test Item Value Reference Range Interpretation Comments UA Ketones (test code Negative mg/dL = UA Ketones) *NA*(12/28/2012 22:30:38) [facility] HospitalDyndvshCSPNHYPMJE0228-17-70 03:30:38 Test Item Value Reference Range Interpretation Comments UA Bili (test code = Negative *NA*(12/28/2012 UA Bili) 22:30:38) [facility]WckkkywBLSXUACWFW5238-78-58 03:30:38 Test Item Value Reference Range Interpretation Comments UA Nitrite (test code Negative (12/28/2012 N = UA Nitrite) 22:30:38) [facility] HospitalKiobveuTQWNWSLMSS0215-32-72 03:30:38 Test Item Value Reference Range Interpretation Comments UA Urobilinogen (test code = UA 0.2 0.1-1.0 N Urobilinogen) [facility] HospitalAtatvpjWQKPRBGPMJ9256-65-93 03:30:38 Test Item Value Reference Range Interpretation Comments UA Blood (test code = Negative (12/28/2012 N UA Blood) 22:30:38) [facility] HospitalXncovwdUTNDGPRFSX7346-72-38 03:30:38 Test Item Value Reference Range Interpretation Comments UA Leuk Est (test Negative (12/28/2012 N code = UA Leuk Est) 22:30:38) [facility] HospitalJimmimiSAKPUMMFGW7357-09-68 03:30:38 Test Item Value Reference Range Interpretation Comments UA pH (test code = UA pH) 7.0 1 5.0-8.[address] [facility] HospitalNctihlzODYQGQSHYR3150-28-73 03:30:38 Test Item Value Reference Range Interpretation Comments UA Glucose (test code Negative mg/dL N = UA Glucose) (12/28/2012 22:30:38) [facility] HospitalDxaymrrUNDHSZBGPY2246-84-55 03:30:38 Test Item Value Reference Range Interpretation Comments UA Spec Grav (test code = UA Spec 1.010 1 N Grav) [facility] HospitalFxihdepDKHUHHHXSW9655-43-93 03:30:38 Test Item Value Reference Range Interpretation Comments UA Protein (test code Negative mg/dL N = UA Protein) (12/28/2012 22:30:38) [facility] HospitalTdxwrjoFLBTEPWIBC1247-97-46 03:30:38 Test Item Value Reference Range Interpretation Comments UA Turbidity (test code = Clear (12/28/2012 N UA Turbidity) 22:30:38) [facility] HospitalVsnymfiPNXPMASKEO1388-38-68 03:30:38 Test Item Value Reference Range Interpretation Comments UA Color (test code = Yellow *NA*(12/28/2012 UA Color) 22:30:38) [facility] HospitalDalaamnOPZQYXBKY7797-74-08 03:30:38 Test Item Value Reference Range Interpretation Comments UDS Note (test code = See Note 5(12/28/2012 N UDS Note) 22:30:38) [facility] HospitalXxglrfjRRKDUYDZO8508-31-42 03:30:38 Test Item Value Reference Range Interpretation Comments U Phencyc Scr (test Negative code = U Phencyc Scr) *NA*(12/28/2012 22:30:38) [facility] HospitalPhmamxoWKDMFFGOU2270-85-12 03:30:38 Test Item Value Reference Range Interpretation Comments U Opiate Scr (test Positive A code = U Opiate Scr) *ABN*(12/28/2012 22:30:38) [facility] HospitalLfpmmnmNXMBTVOCE6717-56-65 03:30:38 Test Item Value Reference Range Interpretation Comments U Cannab Scr (test Negative code = U Cannab Scr) *NA*(12/28/2012 22:30:38) [facility] HospitalWvvmyjiLILETXQOF0203-48-75 03:30:38 Test Item Value Reference Range Interpretation Comments U Benzodia Scr (test Negative code = U Benzodia Scr) *NA*(12/28/2012 22:30:38) [facility] HospitalDfnzesnBPZKKVWFJ6492-72-79 03:30:38 Test Item Value Reference Range Interpretation Comments U Odalys Scr (test code Negative *NA*(12/28/2012 = U Odalys Scr) 22:30:38) [facility] HospitalZdbgybuLFWIUVMNO1097-50-36 03:30:38 Test Item Value Reference Range Interpretation Comments U Amph Scr (test code Negative *NA*(12/28/2012 = U Amph Scr) 22:30:38) [facility] HospitalLimahxhXBEGJDWNI7724-61-22 03:30:38 Test Item Value Reference Range Interpretation Comments U Cocaine Scr (test Negative code = U Cocaine Scr) *NA*(12/28/2012 22:30:38) [facility] HospitalKoguapkFHWVBICLIR7377-23-19 03:30:38 Test Item Value Reference Range Interpretation Comments UA Ketones (test code Negative mg/dL = UA Ketones) *NA*(12/28/2012 22:30:38) [facility] HospitalBerfuzuKXJLBXNFPJ6646-35-97 03:30:38 Test Item Value Reference Range Interpretation Comments UA Bili (test code = Negative *NA*(12/28/2012 UA Bili) 22:30:38) [facility]DkspwwgQGYQADJPFS0750-67-98 03:30:38 Test Item Value Reference Range Interpretation Comments UA Nitrite (test code Negative (12/28/2012 N = UA Nitrite) 22:30:38) [facility] HospitalKfhbgrzRUNRZJSLGH9788-08-13 03:30:38 Test Item Value Reference Range Interpretation Comments UA Urobilinogen (test code = UA 0.2 0.1-1.0 N Urobilinogen) [facility] HospitalJzpfzadZEETEXFWXE5882-51-14 03:30:38 Test Item Value Reference Range Interpretation Comments UA Blood (test code = Negative (12/28/2012 N UA Blood) 22:30:38) [facility] HospitalKzqdnfrLSPXSDTTCC4619-36-93 03:30:38 Test Item Value Reference Range Interpretation Comments UA Leuk Est (test Negative (12/28/2012 N code = UA Leuk Est) 22:30:38) [facility] HospitalDjavrbcWCJHCPSRSW6391-18-13 03:30:38 Test Item Value Reference Range Interpretation Comments UA pH (test code = UA pH) 7.0 1 5.0-8.[address] [facility] HospitalKudrtpkJTUIZJSZVK7314-60-18 03:30:38 Test Item Value Reference Range Interpretation Comments UA Glucose (test code Negative mg/dL N = UA Glucose) (12/28/2012 22:30:38) [facility] HospitalHcrmyleSLORBCGNQN2445-21-68 03:30:38 Test Item Value Reference Range Interpretation Comments UA Spec Grav (test code = UA Spec 1.010 1 N Grav) [facility] HospitalSacciskQOHJKSXHRI1168-20-17 03:30:38 Test Item Value Reference Range Interpretation Comments UA Protein (test code Negative mg/dL N = UA Protein) (12/28/2012 22:30:38) [facility] HospitalQfceiseUJWEPLGTJQ5581-43-58 03:30:38 Test Item Value Reference Range Interpretation Comments UA Turbidity (test code = Clear (12/28/2012 N UA Turbidity) 22:30:38) [facility] HospitalNsabopnICXZSQBPPY3665-86-85 03:30:38 Test Item Value Reference Range Interpretation Comments UA Color (test code = Yellow *NA*(12/28/2012 UA Color) 22:30:38) [facility] HospitalOpsshbyHBSWTBBTU0212-23-26 03:30:38 Test Item Value Reference Range Interpretation Comments UDS Note (test code = See Note 5(12/28/2012 N UDS Note) 22:30:38) [facility] HospitalOorcwlcJMTBGYJVE3271-32-53 03:30:38 Test Item Value Reference Range Interpretation Comments U Phencyc Scr (test Negative code = U Phencyc Scr) *NA*(12/28/2012 22:30:38) [facility] HospitalVwtxhtsKQLQWGFVJ5729-34-98 03:30:38 Test Item Value Reference Range Interpretation Comments U Opiate Scr (test Positive A code = U Opiate Scr) *ABN*(12/28/2012 22:30:38) [facility] HospitalOofnoskPQAAKZEUJ8301-13-78 03:30:38 Test Item Value Reference Range Interpretation Comments U Cannab Scr (test Negative code = U Cannab Scr) *NA*(12/28/2012 22:30:38) [facility] HospitalNncniafAWJLFFNPK0872-24-18 03:30:38 Test Item Value Reference Range Interpretation Comments U Benzodia Scr (test Negative code = U Benzodia Scr) *NA*(12/28/2012 22:30:38) [facility] HospitalZkptxclPRHUTHXBX9027-54-68 03:30:38 Test Item Value Reference Range Interpretation Comments U Odalys Scr (test code Negative *NA*(12/28/2012 = U Odalys Scr) 22:30:38) [facility] HospitalQawspjdDJDPCDXLH7610-12-49 03:30:38 Test Item Value Reference Range Interpretation Comments U Amph Scr (test code Negative *NA*(12/28/2012 = U Amph Scr) 22:30:38) [facility]PkpgbhkBRQALJBUP2664-61-55 03:30:38 Test Item Value Reference Range Interpretation Comments U Cocaine Scr (test Negative code = U Cocaine Scr) *NA*(12/28/2012 22:30:38) [facility]MlrpybmMNVKNBPQDJ1522-99-52 03:30:38 Test Item Value Reference Range Interpretation Comments UA Ketones (test code Negative mg/dL = UA Ketones) *NA*(12/28/2012 22:30:38) [facility] HospitalSoycocdMWGUQRBMYB2678-31-51 03:30:38 Test Item Value Reference Range Interpretation Comments UA Bili (test code = Negative *NA*(12/28/2012 UA Bili) 22:30:38) [facility] HospitalOqyyizxIGNHNAOCOI8923-04-36 03:30:38 Test Item Value Reference Range Interpretation Comments UA Nitrite (test code Negative (12/28/2012 N = UA Nitrite) 22:30:38) [facility]qkoyjJHDRYGTUZG4173-54-25 03:30:38 Test Item Value Reference Range Interpretation Comments UA Urobilinogen (test code = UA 0.2 0.1-1.0 N Urobilinogen) [facility] HospitalFcwsyziHENDVVCFRY8898-20-26 03:30:38 Test Item Value Reference Range Interpretation Comments UA Blood (test code = Negative (12/28/2012 N UA Blood) 22:30:38) [facility]viewElddkakKSCIKECCMK7999-17-47 03:30:38 Test Item Value Reference Range Interpretation Comments UA Leuk Est (test Negative (12/28/2012 N code = UA Leuk Est) 22:30:38) [facility] HospitalIlbfobrMZZPMQGRNM2023-02-48 03:30:38 Test Item Value Reference Range Interpretation Comments UA pH (test code = UA pH) 7.0 1 5.0-8.[address] [facility] HospitalWzcjvlkBCDMQPBHHB7702-03-70 03:30:38 Test Item Value Reference Range Interpretation Comments UA Glucose (test code Negative mg/dL N = UA Glucose) (12/28/2012 22:30:38) [facility] HospitalFrehhebAZVKFYWZSQ9961-81-39 03:30:38 Test Item Value Reference Range Interpretation Comments UA Spec Grav (test code = UA Spec 1.010 1 N Grav) [facility] HospitalVhsqsuzXKDULRGPFL2862-32-49 03:30:38 Test Item Value Reference Range Interpretation Comments UA Protein (test code Negative mg/dL N = UA Protein) (12/28/2012 22:30:38) [facility] HospitalJcuyzzkSSCGNDVPND8846-09-41 03:30:38 Test Item Value Reference Range Interpretation Comments UA Turbidity (test code = Clear (12/28/2012 N UA Turbidity) 22:30:38) [facility] HospitalHnhdxvhGBMJUXGTHY3581-32-91 03:30:38 Test Item Value Reference Range Interpretation Comments UA Color (test code = Yellow *NA*(12/28/2012 UA Color) 22:30:38) [facility] HospitalLxehqcrHTSJDPWKR2875-78-92 03:30:38 Test Item Value Reference Range Interpretation Comments UDS Note (test code = See Note 5(12/28/2012 N UDS Note) 22:30:38) [facility] HospitalKfbkcdsUZTMIGFRL0880-92-45 03:30:38 Test Item Value Reference Range Interpretation Comments U Phencyc Scr (test Negative code = U Phencyc Scr) *NA*(12/28/2012 22:30:38) [facility] HospitalXnyigshNKIEIEVGC6766-82-49 03:30:38 Test Item Value Reference Range Interpretation Comments U Opiate Scr (test Positive A code = U Opiate Scr) *ABN*(12/28/2012 22:30:38) [facility] HospitalIwhqzlwARYTGUKEZ6593-97-69 03:30:38 Test Item Value Reference Range Interpretation Comments U Cannab Scr (test Negative code = U Cannab Scr) *NA*(12/28/2012 22:30:38) [facility] HospitalVsehbbwKKQURHUZF1377-62-46 03:30:38 Test Item Value Reference Range Interpretation Comments U Benzodia Scr (test Negative code = U Benzodia Scr) *NA*(12/28/2012 22:30:38) [facility] HospitalRcamxwuJWZCPQCVZ3387-48-25 03:30:38 Test Item Value Reference Range Interpretation Comments U Odalys Scr (test code Negative *NA*(12/28/2012 = U Odalys Scr) 22:30:38) [facility] HospitalZhdpgvbBTSFWWGWF6443-21-40 03:30:38 Test Item Value Reference Range Interpretation Comments U Amph Scr (test code Negative *NA*(12/28/2012 = U Amph Scr) 22:30:38) [facility] HospitalSmjxgqxINJECTZJD2452-83-77 03:30:38 Test Item Value Reference Range Interpretation Comments U Cocaine Scr (test Negative code = U Cocaine Scr) *NA*(12/28/2012 22:30:38) [facility] HospitalUuikoyfEDISFNLKJR1214-34-42 03:30:38 Test Item Value Reference Range Interpretation Comments UA Ketones (test code Negative mg/dL = UA Ketones) *NA*(12/28/2012 22:30:38) [facility] HospitalKskatvlZAICBJFEQT6857-62-23 03:30:38 Test Item Value Reference Range Interpretation Comments UA Bili (test code = Negative *NA*(12/28/2012 UA Bili) 22:30:38) [facility] HospitalZcscybbAIISCBZTEB9761-12-72 03:30:38 Test Item Value Reference Range Interpretation Comments UA Nitrite (test code Negative (12/28/2012 N = UA Nitrite) 22:30:38) [facility]SubckqeAXXWLMLUNE3607-54-91 03:30:38 Test Item Value Reference Range Interpretation Comments UA Urobilinogen (test code = UA 0.2 0.1-1.0 N Urobilinogen) [facility]viewAzznikmBNTSXUBYCZ7746-95-73 03:30:38 Test Item Value Reference Range Interpretation Comments UA Blood (test code = Negative (12/28/2012 N UA Blood) 22:30:38) [facility]viewQdrxbizTPYWKVIQXJ2399-97-89 03:30:38 Test Item Value Reference Range Interpretation Comments UA Leuk Est (test Negative (12/28/2012 N code = UA Leuk Est) 22:30:38) [facility] HospitalZnajdmeSATQSVZHPF8128-76-19 03:30:38 Test Item Value Reference Range Interpretation Comments UA pH (test code = UA pH) 7.0 1 5.0-8.[address] [facility] HospitalWjveorgMMHRVKUFAA6122-99-85 03:30:38 Test Item Value Reference Range Interpretation Comments UA Glucose (test code Negative mg/dL N = UA Glucose) (12/28/2012 22:30:38) [facility] HospitalYubflooWNBDLLCCYG5010-08-55 03:30:38 Test Item Value Reference Range Interpretation Comments UA Spec Grav (test code = UA Spec 1.010 1 N Grav) [facility] HospitalYmaztdcIMYXERIECD1712-62-51 03:30:38 Test Item Value Reference Range Interpretation Comments UA Protein (test code Negative mg/dL N = UA Protein) (12/28/2012 22:30:38) [facility] HospitalNkdnawjGPFAAVTHDS8800-83-27 03:30:38 Test Item Value Reference Range Interpretation Comments UA Turbidity (test code = Clear (12/28/2012 N UA Turbidity) 22:30:38) [facility] HospitalBsgpjwmIGDMDRFSRB6644-97-03 03:30:38 Test Item Value Reference Range Interpretation Comments UA Color (test code = Yellow *NA*(12/28/2012 UA Color) 22:30:38) [facility] HospitalRgplfhpUYQNXWGPAX3521-00-22 03:30:21 Test Item Value Reference Range Interpretation Comments UA Bacteria (test code = None Seen (12/28/2012 N UA Bacteria) 22:30:21) [facility] HospitalVmzucrrIJSPHRZEWT3028-47-09 03:30:21 Test Item Value Reference Range Interpretation Comments Micro? (test code = Performed (12/28/2012 N Micro?) 22:30:21) [facility] HospitalJzlvrjxORNGYDDAIP8532-81-52 03:30:21 Test Item Value Reference Range Interpretation Comments UA Sq Epi (test code = None Seen (12/28/2012 N UA Sq Epi) 22:30:21) [facility] HospitalJgpmtdzDIYUUGXVNZ3810-67-84 03:30:21 Test Item Value Reference Range Interpretation Comments UA WBC (test code = UA 0-2 /HPF (12/28/2012 N WBC) 22:30:21) [facility]VmsylvaYZLMGBJXVH8389-65-91 03:30:21 Test Item Value Reference Range Interpretation Comments UA RBC (test None Seen See_Comment N [Automated mes olga] code = UA RBC) (12/28/2012 The system ich 22:30:21) generated this result transmitted ref erence range: <=2. The reference range was not used to int erpret this result as normal/abnormal . [facility] AustinAaewqarZOQVFDHOSE3809-59-52 03:30:21 Test Item Value Reference Range Interpretation Comments UA Bacteria (test code = None Seen (12/28/2012 N UA Bacteria) 22:30:21) [facility] AustinQzdrkfgVDICWGZNVR3919-27-42 03:30:21 Test Item Value Reference Range Interpretation Comments Micro? (test code = Performed (12/28/2012 N Micro?) 22:30:21) [facility] AustinZescytyQNIUELGAED9567-60-36 03:30:21 Test Item Value Reference Range Interpretation Comments UA Sq Epi (test code = None Seen (12/28/2012 N UA Sq Epi) 22:30:21) [facility] AustinUzxfptwOOLUXJLHOU3779-13-60 03:30:21 Test Item Value Reference Range Interpretation Comments UA WBC (test code = UA 0-2 /HPF (12/28/2012 N WBC) 22:30:21) [facility] AustinObdetghXKTZYPZQBL9783-78-26 03:30:21 Test Item Value Reference Range Interpretation Comments UA RBC (test None Seen See_Comment N [Automated mes olga] code = UA RBC) (12/28/2012 The system [facility] 22:30:21) generated this result transmitted ref erence range: <=2. The reference range was not used to int erpret this result as normal/abnormal . [facility] AustinOnftqjyLEOYCXNFMA0736-80-28 03:30:21 Test Item Value Reference Range Interpretation Comments UA Bacteria (test code = None Seen (12/28/2012 N UA Bacteria) 22:30:21) [facility] AustinMeigplkZYNAZKJFOK1000-72-27 03:30:21 Test Item Value Reference Range Interpretation Comments Micro? (test code = Performed (12/28/2012 N Micro?) 22:30:21) [facility] AustinZuvoslcZYGJUHKUPI7081-77-69 03:30:21 Test Item Value Reference Range Interpretation Comments UA Sq Epi (test code = None Seen (12/28/2012 N UA Sq Epi) 22:30:21) [facility] AustinUfizkuwKXUPHPCQTC3214-55-37 03:30:21 Test Item Value Reference Range Interpretation Comments UA WBC (test code = UA 0-2 /HPF (12/28/2012 N WBC) 22:30:21) [facility] HospitalUdcjeghSTHOGOYQYW2252-11-29 03:30:21 Test Item Value Reference Range Interpretation Comments UA RBC (test None Seen See_Comment N [Automated mes olga] code = UA RBC) (12/28/2012 The system ich 22:30:21) generated this result transmitted ref erence range: <=2. The reference range was not used to int erpret this result as normal/abnormal . [facility] HospitalRlvkxliARSPAUAYGZ2908-52-18 03:30:21 Test Item Value Reference Range Interpretation Comments UA Bacteria (test code = None Seen (12/28/2012 N UA Bacteria) 22:30:21) [facility] HospitalXewyhktZFECDPBEAB4997-21-16 03:30:21 Test Item Value Reference Range Interpretation Comments Micro? (test code = Performed (12/28/2012 N Micro?) 22:30:21) [facility] HospitalJdqrcgaZWDDULPTOT0559-81-44 03:30:21 Test Item Value Reference Range Interpretation Comments UA Sq Epi (test code = None Seen (12/28/2012 N UA Sq Epi) 22:30:21) [facility] HospitalBscknwxVBPEJAUUOM1891-72-21 03:30:21 Test Item Value Reference Range Interpretation Comments UA WBC (test code = UA 0-2 /HPF (12/28/2012 N WBC) 22:30:21) [facility] HospitalKaukqtkMSXVDBUURQ9682-73-49 03:30:21 Test Item Value Reference Range Interpretation Comments UA RBC (test None Seen See_Comment N [Automated mes olga] code = UA RBC) (12/28/2012 The system ich 22:30:21) generated this result transmitted ref erence range: <=2. The reference range was not used to int erpret this result as normal/abnormal . [facility] HospitalYgnllilIRRMCFXECR4048-82-28 03:30:21 Test Item Value Reference Range Interpretation Comments UA Bacteria (test code = None Seen (12/28/2012 N UA Bacteria) 22:30:21) [facility] AustinJmayzsmTVSXDEFDSD5883-45-01 03:30:21 Test Item Value Reference Range Interpretation Comments Micro? (test code = Performed (12/28/2012 N Micro?) 22:30:21) [facility] AustinFqbxejaCNIRSBTXCW4546-98-43 03:30:21 Test Item Value Reference Range Interpretation Comments UA Sq Epi (test code = None Seen (12/28/2012 N UA Sq Epi) 22:30:21) [facility] AustinVtizerbYSTROCBOZB6789-29-44 03:30:21 Test Item Value Reference Range Interpretation Comments UA WBC (test code = UA 0-2 /HPF (12/28/2012 N WBC) 22:30:21) [facility] AustinNfslxuiMIRLUGCULG9485-81-94 03:30:21 Test Item Value Reference Range Interpretation Comments UA RBC (test None Seen See_Comment N [Automated mes olga] code = UA RBC) (12/28/2012 The system ich 22:30:21) generated this result transmitted ref erence range: <=2. The reference range was not used to int erpret this result as normal/abnormal . [facility] AustinJavvuvpPUXKTQHTTD1510-83-47 03:30:21 Test Item Value Reference Range Interpretation Comments UA Bacteria (test code = None Seen (12/28/2012 N UA Bacteria) 22:30:21) [facility] AustinKgwywwqGUGBHDQYGE1856-82-56 03:30:21 Test Item Value Reference Range Interpretation Comments Micro? (test code = Performed (12/28/2012 N Micro?) 22:30:21) [facility] AustinGlntyorZTKCIRPNGT5867-95-54 03:30:21 Test Item Value Reference Range Interpretation Comments UA Sq Epi (test code = None Seen (12/28/2012 N UA Sq Epi) 22:30:21) [facility] AustinMazaculMVCTZOADWF8419-33-58 03:30:21 Test Item Value Reference Range Interpretation Comments UA WBC (test code = UA 0-2 /HPF (12/28/2012 N WBC) 22:30:21) [facility] AustinWeyymllFACUDNHIKW2481-78-92 03:30:21 Test Item Value Reference Range Interpretation Comments UA RBC (test None Seen See_Comment N [Automated mes olga] code = UA RBC) (12/28/2012 The system ich 22:30:21) generated this result transmitted ref erence range: <=2. The reference range was not used to int erpret this result as normal/abnormal . [facility] AustinNljxjbwUVDZXQUHWT0263-20-20 03:30:21 Test Item Value Reference Range Interpretation Comments UA Bacteria (test code = None Seen (12/28/2012 N UA Bacteria) 22:30:21) [facility] AustinFnlmgmnBIQDGUBEGK9362-33-42 03:30:21 Test Item Value Reference Range Interpretation Comments Micro? (test code = Performed (12/28/2012 N Micro?) 22:30:21) [facility] AustinKjdwtehPUQUWVSFWT0153-88-67 03:30:21 Test Item Value Reference Range Interpretation Comments UA Sq Epi (test code = None Seen (12/28/2012 N UA Sq Epi) 22:30:21) [facility] AustinUzxtgbhPCJILTFKSM3158-44-49 03:30:21 Test Item Value Reference Range Interpretation Comments UA WBC (test code = UA 0-2 /HPF (12/28/2012 N WBC) 22:30:21) [facility]BbuyckiNTPVBWLHDP8120-25-59 03:30:21 Test Item Value Reference Range Interpretation Comments UA RBC (test None Seen See_Comment N [Automated mes olga] code = UA RBC) (12/28/2012 The system ich 22:30:21) generated this result transmitted ref erence range: <=2. The reference range was not used to int erpret this result as normal/abnormal . [facility] AustinLzngppaYHINZTAUPB0560-32-11 03:30:21 Test Item Value Reference Range Interpretation Comments UA Bacteria (test code = None Seen (12/28/2012 N UA Bacteria) 22:30:21) [facility] AustinNgmutouMSUBBUPJVO8025-42-36 03:30:21 Test Item Value Reference Range Interpretation Comments Micro? (test code = Performed (12/28/2012 N Micro?) 22:30:21) [facility] AustinBzmeborSBSAALEIYP7177-43-52 03:30:21 Test Item Value Reference Range Interpretation Comments UA Sq Epi (test code = None Seen (12/28/2012 N UA Sq Epi) 22:30:21) [facility] AustinElknmjdAMILOILYNK6009-74-48 03:30:21 Test Item Value Reference Range Interpretation Comments UA WBC (test code = UA 0-2 /HPF (12/28/2012 N WBC) 22:30:21) [facility] AustinEwzgchvWYVPIPTBNH0164-09-09 03:30:21 Test Item Value Reference Range Interpretation Comments UA RBC (test None Seen See_Comment N [Automated mes olga] code = UA RBC) (12/28/2012 The system [facility] 22:30:21) generated this result transmitted ref erence range: <=2. The reference range was not used to int erpret this result as normal/abnormal . [facility] AustinBdspdcbJXOUITPJTJ6138-87-04 03:30:21 Test Item Value Reference Range Interpretation Comments UA Bacteria (test code = None Seen (12/28/2012 N UA Bacteria) 22:30:21) [facility] AustinYhpcrimNERAIFEKZX3013-09-58 03:30:21 Test Item Value Reference Range Interpretation Comments Micro? (test code = Performed (12/28/2012 N Micro?) 22:30:21) [facility] AustinJlorzfrOLPZAQYCOZ9895-75-02 03:30:21 Test Item Value Reference Range Interpretation Comments UA Sq Epi (test code = None Seen (12/28/2012 N UA Sq Epi) 22:30:21) [facility] AustinNjcdspnBLSRJDPHVK7554-31-47 03:30:21 Test Item Value Reference Range Interpretation Comments UA WBC (test code = UA 0-2 /HPF (12/28/2012 N WBC) 22:30:21) [facility] AustinGmbaosrFDHBGYQLMT7585-37-51 03:30:21 Test Item Value Reference Range Interpretation Comments UA RBC (test None Seen See_Comment N [Automated mes olga] code = UA RBC) (12/28/2012 The system [facility] 22:30:21) generated this result transmitted ref erence range: <=2. The reference range was not used to int erpret this result as normal/abnormal . [facility] AustinJpebqamIXPFDPIIAE1101-06-78 03:30:21 Test Item Value Reference Range Interpretation Comments UA Bacteria (test code = None Seen (12/28/2012 N UA Bacteria) 22:30:21) [facility] AustinApwtarsDCTXPCVDIF9414-37-60 03:30:21 Test Item Value Reference Range Interpretation Comments Micro? (test code = Performed (12/28/2012 N Micro?) 22:30:21) [facility]viewIjyvoitSONVPVSTEW2964-43-97 03:30:21 Test Item Value Reference Range Interpretation Comments UA Sq Epi (test code = None Seen (12/28/2012 N UA Sq Epi) 22:30:21) [facility]bnjvgDILQOGBKCD2386-66-32 03:30:21 Test Item Value Reference Range Interpretation Comments UA WBC (test code = UA 0-2 /HPF (12/28/2012 N WBC) 22:30:21) [facility] AustinXmsdzmiKNWMXRHAOM4605-49-82 03:30:21 Test Item Value Reference Range Interpretation Comments UA RBC (test None Seen See_Comment N [Automated mes olga] code = UA RBC) (12/28/2012 The system ich 22:30:21) generated this result transmitted ref erence range: <=2. The reference range was not used to int erpret this result as normal/abnormal . [employer] [id number] 02:00:00 Test Item Value Reference Range Interpretation Comments ABO/Rh (test code = ABO/Rh) B NEG [employer] PFALECR8791-86-57 02:00:00 Test Item Value Reference Range Interpretation Comments Antibody Scrn (test Negative (12/28/2012 N code = Antibody Scrn) 21:00:00) [facility] HUUOKJY5541-20-07 02:00:00 Test Item Value Reference Range Interpretation Comments ABO/Rh (test code = ABO/Rh) B NEG [facility] RZUQYPF6600-42-07 02:00:00 Test Item Value Reference Range Interpretation Comments Antibody Scrn (test Negative (12/28/2012 N code = Antibody Scrn) 21:00:00) [facility] HVBHUFF9698-64-18 02:00:00 Test Item Value Reference Range Interpretation Comments ABO/Rh (test code = ABO/Rh) B NEG [facility] QYTCXYF8563-77-56 02:00:00 Test Item Value Reference Range Interpretation Comments Antibody Scrn (test Negative (12/28/2012 N code = Antibody Scrn) 21:00:00) [facility] BSNUJGH8855-78-30 02:00:00 Test Item Value Reference Range Interpretation Comments ABO/Rh (test code = ABO/Rh) B NEG [facility] VMSIWNY2850-04-44 02:00:00 Test Item Value Reference Range Interpretation Comments Antibody Scrn (test Negative (12/28/2012 N code = Antibody Scrn) 21:00:00) [facility] [employer] [facility] RNYQNRN0760-86-47 02:00:00 Test Item Value Reference Range Interpretation Comments ABO/Rh (test code = ABO/Rh) B NEG [facility] [employer] [facility] JCCRNRG7019-40-50 02:00:00 Test Item Value Reference Range Interpretation Comments Antibody Scrn (test Negative (12/28/2012 N code = Antibody Scrn) 21:00:00) [facility] [employer] [facility] ENZZQZI6105-23-53 02:00:00 Test Item Value Reference Range Interpretation Comments ABO/Rh (test code = ABO/Rh) B NEG [facility] [id number] 02:00:00 Test Item Value Reference Range Interpretation Comments Antibody Scrn (test Negative (12/28/2012 N code = Antibody Scrn) 21:00:00) [facility] [id number] 02:00:00 Test Item Value Reference Range Interpretation Comments ABO/Rh (test code = ABO/Rh) B NEG [facility] [employer] [facility] [id number] 02:00:00 Test Item Value Reference Range Interpretation Comments Antibody Scrn (test Negative (12/28/2012 N code = Antibody Scrn) 21:00:00) [facility] [id number] 02:00:00 Test Item Value Reference Range Interpretation Comments ABO/Rh (test code = ABO/Rh) B NEG [facility] [employer] [facility] JLKXUGG4698-85-27 02:00:00 Test Item Value Reference Range Interpretation Comments Antibody Scrn (test Negative (12/28/2012 N code = Antibody Scrn) 21:00:00) [facility] [employer] [facility] [id number] 02:00:00 Test Item Value Reference Range Interpretation Comments ABO/Rh (test code = ABO/Rh) B NEG [facility] [employer] [facility] [id number] 02:00:00 Test Item Value Reference Range Interpretation Comments Antibody Scrn (test Negative (12/28/2012 N code = Antibody Scrn) 21:00:00) [facility] EHVZJBN3880-72-37 02:00:00 Test Item Value Reference Range Interpretation Comments ABO/Rh (test code = ABO/Rh) [facility] [id number] 02:00:00 Test Item Value Reference Range Interpretation Comments Antibody Scrn (test Negative (12/28/2012 N code = Antibody Scrn) 21:00:00) [facility]AhlfwnkQJLRHEMTA8447-70-59 01:56:00 Test Item Value Reference Range Interpretation Comments O2 Sat Frankie (test code = O2 Sat Frankie) 84.6 40.0-70.0 H [facility] HospitalZmnteedLOBFROHCF2114-77-36 01:56:00 Test Item Value Reference Range Interpretation Comments Temp Frankie (test code = Temp Frankie) 37.0 [facility] HospitalVslfvwbGKRCYYVYG0547-10-83 01:56:00 Test Item Value Reference Range Interpretation Comments BE Frankie (test code = -4 See_Comment L [Automa abdelrahman message] The BE Frankie) system which ge nerated this result transmit abdelrahman reference range : <=2. The reference range was not used to interpr et this result as gurpreet l/abnormal. [facility] HospitalJjqqknnPYSWVAMCP8496-77-91 01:56:00 Test Item Value Reference Range Interpretation Comments HCO3 Frankie (test code = HCO3 Frankie) 20 22-26 L [facility] HospitalZshnxgwKPKMLBRYN3833-52-48 01:56:00 Test Item Value Reference Range Interpretation Comments pO2 Frankie (test code = pO2 Frankie) 49 20-49 N [facility] HospitalBdpuoxiWENXLTSUI1287-79-63 01:56:00 Test Item Value Reference Range Interpretation Comments pH Frankie (test code = pH Frankie) 7.41 7.28-7.42 N [facility] HospitalRanyibqUHBAWDSDJ2692-59-58 01:56:00 Test Item Value Reference Range Interpretation Comments pCO2 Frankie (test code = pCO2 Frankie) 31 38-52 L [facility] HospitalSgwefdqQONVNQSQY3795-86-88 01:56:00 Test Item Value Reference Range Interpretation Comments Lactic Acid Lvl (test code = Lactic 4.4 0.5-2.2 H Acid Lvl) [facility] HospitalMlbpxeeRCPLZDPLK0769-35-43 01:56:00 Test Item Value Reference Range Interpretation Comments Ethanol Lvl (test code = Ethanol Lvl) 79 [facility] HospitalMemsdapLLYUNOVLC3097-07-72 01:56:00 Test Item Value Reference Range Interpretation Comments Etoh (%) (test code = Etoh (%)) 0.079 [facility] HospitalZdqqagmJPHAYYSDW8474-45-51 01:56:00 Test Item Value Reference Range Interpretation Comments eGFR (test code = eGFR) 93 [facility] HospitalRzfqdalYRDGGYDNV0752-85-14 01:56:00 Test Item Value Reference Range Interpretation Comments BUN (test code = BUN) 6 7-22 L [facility] HospitalTgiubtjBNYHNTNQE5748-59-69 01:56:00 Test Item Value Reference Range Interpretation Comments Creatinine Lvl (test code = Creatinine 1.1 0.5-1.4 N Lvl) [facility] HospitalRozrfvnPIXTNVLQH1594-39-33 01:56:00 Test Item Value Reference Range Interpretation Comments Glucose Lvl (test code = Glucose Lvl) 124 70-99 [facility]HqyrsycZGKATSTIQ9325-23-85 01:56:00 Test Item Value Reference Range Interpretation Comments Sodium Lvl (test code = Sodium Lvl) 140 135-145 N [facility] HospitalBdxrkdzSHZOIOMYD2409-18-82 01:56:00 Test Item Value Reference Range Interpretation Comments Chloride Lvl (test code = Chloride Lvl) 103 95-109 N [facility] HospitalFypxsnnGUOWDFTSD1837-76-99 01:56:00 Test Item Value Reference Range Interpretation Comments CO2 (test code = CO2) 21 24-32 L [facility] HospitalXpcgpteCMDIGIAGS0021-11-10 01:56:00 Test Item Value Reference Range Interpretation Comments Potassium Lvl (test code = Potassium 3.1 3.5-5.1 L Lvl) [facility] HospitalRdjohziPEQYGQAMK1435-13-71 01:56:00 Test Item Value Reference Range Interpretation Comments Calcium Lvl (test code = Calcium Lvl) 8.6 8.5-10.5 N [facility] HospitalBeckoyjFBGAZLKJV4476-29-15 01:56:00 Test Item Value Reference Range Interpretation Comments AGAP (test code = AGAP) 19.1 10.0-20.0 N [facility] HospitalPalqhdaUYXTTANKKM8719-94-53 01:56:00 Test Item Value Reference Range Interpretation Comments Estimated % Lysis (test 1.3 See_Comment N [Au tomated message] The code = Estimated % system wh ich generated Lysis) this result tra nsmitted reference range : <=7.5. The reference r annemarie was not used to int erpret this result as normal/abnormal . [facility] HospitalDasisuxCYKXWQCSHF9321-22-70 01:56:00 Test Item Value Reference Range Interpretation Comments K-time (test code = K-time) 2.2 min 0.6-2.3 N [facility] HospitalVdrsxjgLXFXDTGIGP3993-31-66 01:56:00 Test Item Value Reference Range Interpretation Comments Angle (test code = Angle) 64 degrees 64-80 N [facility] HospitalHqflakwQWXIAMBEPS9385-86-63 01:56:00 Test Item Value Reference Range Interpretation Comments Max Amp (test code = Max Amp) 58 mm 52-71 N [facility] HospitalAlomzqnFCFNSWFOVD6180-94-25 01:56:00 Test Item Value Reference Range Interpretation Comments R-time (test code = R-time) 0.8 min 0.4-0.7 H [facility] HospitalDuahojvTOWHQJKEII8961-21-06 01:56:00 Test Item Value Reference Range Interpretation Comments Split Point (test code = Split Point) 0.6 min [place] [address]-08-31 01:56:00 Test Item Value Reference Range Interpretation Comments Rapid TEG Sample Type Citrated Whole Blood (test code = Rapid TEG Sample Type) [facility] HospitalEuvngdaKAMYCXJTLY1527-06-22 01:56:00 Test Item Value Reference Range Interpretation Comments ACT (TEG) (test code = ACT (TEG)) 121 s 86-118 H [facility] HospitalDucwilxOMODCTSLZJ5838-16-90 01:56:00 Test Item Value Reference Range Interpretation Comments G-value (test code = G-value) 6.9 5.0-11.6 N [place] [address]-08-31 01:56:00 Test Item Value Reference Range Interpretation Comments Hgb (test code = Hgb) 14.8 14.0-18.0 N [place] [address]-08-31 01:56:00 Test Item Value Reference Range Interpretation Comments RBC (test code = RBC) 5.05 4.70-6.10 N [facility] HospitalKhsmfhyKBLHVJEBVD1663-22-03 01:56:00 Test Item Value Reference Range Interpretation Comments Hct (test code = Hct) 44.5 42.0-54.0 N [facility] HospitalAnikwfiJMTUOAHQDW3617-58-06 01:56:00 Test Item Value Reference Range Interpretation Comments WBC (test code = WBC) 11.8 3.7-10.4 H [facility] HospitalJtzmvznKDNMPHZWRT7550-73-24 01:56:00 Test Item Value Reference Range Interpretation Comments MPV (test code = MPV) 9.2 7.4-10.4 N [facility] HospitalRrhwcgtRUUZDJBKJF8036-10-45 01:56:00 Test Item Value Reference Range Interpretation Comments MCHC (test code = MCHC) 33.2 32.0-36.0 N [facility] HospitalJeevrfkRLJHRQUQKG6657-12-31 01:56:00 Test Item Value Reference Range Interpretation Comments MCV (test code = MCV) 88.1 80.0-94.0 N [facility] HospitalBdodvciZSPKZQRCVO3181-55-23 01:56:00 Test Item Value Reference Range Interpretation Comments MCH (test code = MCH) 29.3 pg 27.0-31.0 N [facility] HospitalZaqfcfeROEJJSAKAB4836-42-48 01:56:00 Test Item Value Reference Range Interpretation Comments Platelet (test code = Platelet) 175 133-450 N [facility] HospitalRehogbuECCYVMUBRJ7874-01-40 01:56:00 Test Item Value Reference Range Interpretation Comments RDW (test code = RDW) 12.4 11.5-14.5 N [facility] HospitalSrexpeqTRVGMTDSGM0546-72-61 01:56:00 Test Item Value Reference Range Interpretation Comments Lymphocytes (test code = Lymphocytes) 14.0 20.0-40.0 L [facility] HospitalYytbbnpAJXIIMZQJI3013-61-39 01:56:00 Test Item Value Reference Range Interpretation Comments RBC Morph (test code = Normal (12/28/2012 N RBC Morph) 20:56:00) [facility] HospitalRhjyjosSCFEPFTGFQ9428-52-58 01:56:00 Test Item Value Reference Range Interpretation Comments Bands (test code = 6.0 See_Comment N [Automat ed message] The Bands) system which ge nerated this result transmit abdelrahman reference range : <=11.0. The reference r annemarie was not used to interpr et this result as gurpreet l/abnormal. [facility] HospitalJzdscxySDGCKYYMJD2059-56-40 01:56:00 Test Item Value Reference Range Interpretation Comments Segs (test code = Segs) 72.0 45.0-75.0 N [facility] HospitalJirgrgtGZBIUBLTRH3318-04-33 01:56:00 Test Item Value Reference Range Interpretation Comments Monocytes # (test code 0.9 See_Comment H [Aut omated message] The = Monocytes #) system which generated this result tra nsmitted reference range : <=0.8. The reference r annemarie was not used to int erpret this result as normal/abnormal . [facility] HospitalDwbeifcSDYLJKVQOT5339-83-24 01:56:00 Test Item Value Reference Range Interpretation Comments Lymphocytes # (test code = Lymphocytes 1.7 1.0-5.5 N #) [facility] HospitalRzfedkeXQOZBAUXTI8049-08-74 01:56:00 Test Item Value Reference Range Interpretation Comments Segs-Bands # (test code = Segs-Bands #) 9.2 1.5-8.1 H [facility] HospitalBkigrhgSLLCJEGEVR8000-95-88 01:56:00 Test Item Value Reference Range Interpretation Comments Monocytes (test code = Monocytes) 8.0 2.0-12.0 N [facility] HospitalSupsgvyVLGCWAWERT4567-78-34 01:56:00 Test Item Value Reference Range Interpretation Comments Atypical Lymphs (test code = Atypical 0.0 N Lymphs) [facility] HospitalToezflgXTTOAZOYSG9715-27-91 01:56:00 Test Item Value Reference Range Interpretation Comments Plt Morph (test code = Normal (12/28/2012 N Plt Morph) 20:56:00) [facility] HospitalKvbvdefCENYVSEES8271-47-61 01:56:00 Test Item Value Reference Range Interpretation Comments O2 Sat Frankie (test code = O2 Sat Frankie) 84.6 40.0-70.0 H [facility] HospitalNieqjneQXYCSSFKS3336-27-20 01:56:00 Test Item Value Reference Range Interpretation Comments Temp Frankie (test code = Temp Frankie) 37.0 [facility] HospitalBrlghqhDIDRPSFTI6301-72-75 01:56:00 Test Item Value Reference Range Interpretation Comments BE Frankie (test code = -4 See_Comment L [Automa abdelrahman message] The BE Frankie) system which ge nerated this result transmit abdelrahman reference range : <=2. The reference range was not used to interpr et this result as gurpreet l/abnormal. [facility] HospitalCytjfciQBBJVZDWL3386-16-83 01:56:00 Test Item Value Reference Range Interpretation Comments HCO3 Frankie (test code = HCO3 Frankie) 20 22-26 L [facility] HospitalGttpedhJOEXLQRJD5192-84-59 01:56:00 Test Item Value Reference Range Interpretation Comments pO2 Frankie (test code = pO2 Frankie) 49 20-49 N [facility] HospitalZpqpyanGKFQFBFJJ0172-79-06 01:56:00 Test Item Value Reference Range Interpretation Comments pH Frankie (test code = pH Frankie) 7.41 7.28-7.42 N [facility] HospitalHssynqeUZRKFSEPG1008-70-94 01:56:00 Test Item Value Reference Range Interpretation Comments pCO2 Frankie (test code = pCO2 Frankie) 31 38-52 L [facility] HospitalYlyrwzwWQAEEGDCC9691-34-67 01:56:00 Test Item Value Reference Range Interpretation Comments Lactic Acid Lvl (test code = Lactic 4.4 0.5-2.2 H Acid Lvl) [facility] HospitalUshkuwiCDFPGZQUE6691-98-90 01:56:00 Test Item Value Reference Range Interpretation Comments Ethanol Lvl (test code = Ethanol Lvl) 79 [facility] HospitalQifxpjbSPNPEHOHP2266-59-67 01:56:00 Test Item Value Reference Range Interpretation Comments Etoh (%) (test code = Etoh (%)) 0.079 [facility] HospitalBrunelpTWWKGJYHV2455-85-37 01:56:00 Test Item Value Reference Range Interpretation Comments eGFR (test code = eGFR) 93 [facility] HospitalUgcqmavSOOCHJAPC8781-02-72 01:56:00 Test Item Value Reference Range Interpretation Comments BUN (test code = BUN) 6 7-22 L [facility] HospitalAxgqrptNPJPZOFKX5771-33-24 01:56:00 Test Item Value Reference Range Interpretation Comments Creatinine Lvl (test code = Creatinine 1.1 0.5-1.4 N Lvl) [facility] HospitalOujlbawLKOXHCAHV4997-42-01 01:56:00 Test Item Value Reference Range Interpretation Comments Glucose Lvl (test code = Glucose Lvl) 124 70-99 H [facility] HospitalHvxhkjzIIHERJMDW2212-66-94 01:56:00 Test Item Value Reference Range Interpretation Comments Sodium Lvl (test code = Sodium Lvl) 140 135-145 N [facility] HospitalPqokkzzLODREKVQO3223-16-27 01:56:00 Test Item Value Reference Range Interpretation Comments Chloride Lvl (test code = Chloride Lvl) 103 95-109 N [facility] HospitalIzakiqpGWJVJJNND1189-45-78 01:56:00 Test Item Value Reference Range Interpretation Comments CO2 (test code = CO2) 21 24-32 L [facility] HospitalGbckmnaCJJHWXICS1985-46-54 01:56:00 Test Item Value Reference Range Interpretation Comments Potassium Lvl (test code = Potassium 3.1 3.5-5.1 L Lvl) [facility] HospitalAtkqvncUJGGAVDGU1632-47-31 01:56:00 Test Item Value Reference Range Interpretation Comments Calcium Lvl (test code = Calcium Lvl) 8.6 8.5-10.5 N [facility] HospitalJkkcnifDFPXJUTWZ3243-75-91 01:56:00 Test Item Value Reference Range Interpretation Comments AGAP (test code = AGAP) 19.1 10.0-20.0 N [facility] HospitalLhmaiduSOFOEZDCWR4109-11-22 01:56:00 Test Item Value Reference Range Interpretation Comments Estimated % Lysis (test 1.3 See_Comment N [Au tomated message] The code = Estimated % system wh ich generated Lysis) this result tra nsmitted reference range : <=7.5. The reference r annemarie was not used to int erpret this result as normal/abnormal . [facility] HospitalTcbelfiSBJOHTKEIM9024-02-07 01:56:00 Test Item Value Reference Range Interpretation Comments K-time (test code = K-time) 2.2 min 0.6-2.3 N [facility] HospitalKezfqpwZZPGAUUPDE6169-65-05 01:56:00 Test Item Value Reference Range Interpretation Comments Angle (test code = Angle) 64 degrees 64-80 N [facility] HospitalIampckrZBOSJTIYCR0573-81-16 01:56:00 Test Item Value Reference Range Interpretation Comments Max Amp (test code = Max Amp) 58 mm 52-71 N [facility] HospitalXceqhvyOTZSQTAROW5306-25-91 01:56:00 Test Item Value Reference Range Interpretation Comments R-time (test code = R-time) 0.8 min 0.4-0.7 H [facility] HospitalZkgfxwfTJXWVWRTDX5753-90-79 01:56:00 Test Item Value Reference Range Interpretation Comments Split Point (test code = Split Point) 0.6 min [facility] HospitalIpidnsuVESIZYWJXQ2158-56-26 01:56:00 Test Item Value Reference Range Interpretation Comments Rapid TEG Sample Type Citrated Whole Blood (test code = Rapid TEG Sample Type) [facility] HospitalTbanybsCYIAPPZJVS1236-75-70 01:56:00 Test Item Value Reference Range Interpretation Comments ACT (TEG) (test code = ACT (TEG)) 121 s 86-118 H [facility] HospitalFklidsmHLKSWOGHBA8762-59-74 01:56:00 Test Item Value Reference Range Interpretation Comments G-value (test code = G-value) 6.9 5.0-11.6 N [facility] HospitalTccqhnjWNQYEDYQLU1728-63-48 01:56:00 Test Item Value Reference Range Interpretation Comments Hgb (test code = Hgb) 14.8 14.0-18.0 N [facility] HospitalMeuslinKWJABNMYDN0291-46-67 01:56:00 Test Item Value Reference Range Interpretation Comments RBC (test code = RBC) 5.05 4.70-6.10 N [facility] HospitalQbxyxcoRESSYRXDLF0188-69-53 01:56:00 Test Item Value Reference Range Interpretation Comments Hct (test code = Hct) 44.5 42.0-54.0 N [facility] HospitalXumpppkCESWYVRNUV0069-85-27 01:56:00 Test Item Value Reference Range Interpretation Comments WBC (test code = WBC) 11.8 3.7-10.4 H [facility] HospitalTpfckblIVLTBBEHXJ1887-95-82 01:56:00 Test Item Value Reference Range Interpretation Comments MPV (test code = MPV) 9.2 7.4-10.4 N [facility] HospitalVgwqdyhQVURTHEJJS6299-39-18 01:56:00 Test Item Value Reference Range Interpretation Comments MCHC (test code = MCHC) 33.2 32.0-36.0 N [facility] HospitalTqmbwxyEGFUBFMKRR2549-42-36 01:56:00 Test Item Value Reference Range Interpretation Comments MCV (test code = MCV) 88.1 80.0-94.0 N [facility] HospitalSngdycgTDUANNAAQC8321-03-77 01:56:00 Test Item Value Reference Range Interpretation Comments MCH (test code = MCH) 29.3 pg 27.0-31.0 N [facility] HospitalDkycdsjCRAFOTPYSB8595-67-92 01:56:00 Test Item Value Reference Range Interpretation Comments Platelet (test code = Platelet) 175 133-450 N [facility] HospitalGucfborDHXDARDEER1446-50-04 01:56:00 Test Item Value Reference Range Interpretation Comments RDW (test code = RDW) 12.4 11.5-14.5 N [facility] HospitalMjrmfhbHBNVAUIADA0685-04-52 01:56:00 Test Item Value Reference Range Interpretation Comments Lymphocytes (test code = Lymphocytes) 14.0 20.0-40.0 L [facility] HospitalDgetzidXXFQGBJNVA6408-09-30 01:56:00 Test Item Value Reference Range Interpretation Comments RBC Morph (test code = Normal (12/28/2012 N RBC Morph) 20:56:00) [facility] HospitalAeqvwrnIHDJCLWCYM7000-01-55 01:56:00 Test Item Value Reference Range Interpretation Comments Bands (test code = 6.0 See_Comment N [Automat ed message] The Bands) system which ge nerated this result transmit abdelrahman reference range : <=11.0. The reference r annemarie was not used to interpr et this result as gurpreet l/abnormal. [facility] HospitalKsylwqmFXOBCYWKMA4508-78-46 01:56:00 Test Item Value Reference Range Interpretation Comments Segs (test code = Segs) 72.0 45.0-75.0 N [facility] HospitalVmbufhfYTLWZYVBJN0725-67-11 01:56:00 Test Item Value Reference Range Interpretation Comments Monocytes # (test code 0.9 See_Comment H [Aut omated message] The = Monocytes #) system which generated this result tra nsmitted reference range : <=0.8. The reference r annemarie was not used to int erpret this result as normal/abnormal . [facility] HospitalTtpzzzaZREAMULUBE5885-39-60 01:56:00 Test Item Value Reference Range Interpretation Comments Lymphocytes # (test code = Lymphocytes 1.7 1.0-5.5 N #) [facility] HospitalWbepfdnOZZIYOEWAX4176-57-39 01:56:00 Test Item Value Reference Range Interpretation Comments Segs-Bands # (test code = Segs-Bands #) 9.2 1.5-8.1 H [facility] HospitalNdnftbnNGOMGUYHDY3385-69-91 01:56:00 Test Item Value Reference Range Interpretation Comments Monocytes (test code = Monocytes) 8.0 2.0-12.0 N [facility] HospitalCmxnhgbBCDJDLFMDX9286-51-20 01:56:00 Test Item Value Reference Range Interpretation Comments Atypical Lymphs (test code = Atypical 0.0 N Lymphs) [facility] HospitalEwgzzhuMVVDBJIIRR0255-38-00 01:56:00 Test Item Value Reference Range Interpretation Comments Plt Morph (test code = Normal (12/28/2012 N Plt Morph) 20:56:00) [facility] HospitalUcpyybbCOMKXFHCU2975-60-73 01:56:00 Test Item Value Reference Range Interpretation Comments O2 Sat Frankie (test code = O2 Sat Frankie) 84.6 40.0-70.0 H [facility] HospitalRcevzisQQECKWYLM7064-48-13 01:56:00 Test Item Value Reference Range Interpretation Comments Temp Frankie (test code = Temp Frankie) 37.0 [facility] HospitalHgtnkomMAVGMAQWT1942-56-40 01:56:00 Test Item Value Reference Range Interpretation Comments BE Frankie (test code = -4 See_Comment L [Automa abdelrahman message] The BE Frankie) system which ge nerated this result transmit abdelrahman reference range : <=2. The reference range was not used to interpr et this result as gurpreet l/abnormal. [facility] HospitalLtetobwWMEHJYHWH8922-23-40 01:56:00 Test Item Value Reference Range Interpretation Comments HCO3 Frankie (test code = HCO3 Frankie) 20 22-26 L [facility] HospitalAtmvmylKIMQOGGVX9797-78-85 01:56:00 Test Item Value Reference Range Interpretation Comments pO2 Frankie (test code = pO2 Frankie) 49 20-49 N [facility] HospitalRtxnmmjNDSLSOVRH1722-41-96 01:56:00 Test Item Value Reference Range Interpretation Comments pH Frankie (test code = pH Frankie) 7.41 7.28-7.42 N [facility] HospitalCdmswitXZYVQMWVR8894-98-25 01:56:00 Test Item Value Reference Range Interpretation Comments pCO2 Frankie (test code = pCO2 Frankie) 31 38-52 L [facility] HospitalCezuxveNFXDNOXZM8148-94-95 01:56:00 Test Item Value Reference Range Interpretation Comments Lactic Acid Lvl (test code = Lactic 4.4 0.5-2.2 H Acid Lvl) [facility] HospitalItoqhzfTZUPCCRYC2963-01-46 01:56:00 Test Item Value Reference Range Interpretation Comments Ethanol Lvl (test code = Ethanol Lvl) 79 [facility] HospitalKeqtovrCMERKRBKD8450-30-63 01:56:00 Test Item Value Reference Range Interpretation Comments Etoh (%) (test code = Etoh (%)) 0.079 [facility] HospitalAvbntxzFNIKESRCE3158-10-90 01:56:00 Test Item Value Reference Range Interpretation Comments eGFR (test code = eGFR) 93 [facility] HospitalPcywmfiEQNFHKOUH3738-32-49 01:56:00 Test Item Value Reference Range Interpretation Comments BUN (test code = BUN) 6 7-22 L [facility] HospitalAkuomddITTADSBOT6184-50-84 01:56:00 Test Item Value Reference Range Interpretation Comments Creatinine Lvl (test code = Creatinine 1.1 0.5-1.4 N Lvl) [facility] HospitalXhtzlwpUCWQKYSXR5035-05-84 01:56:00 Test Item Value Reference Range Interpretation Comments Glucose Lvl (test code = Glucose Lvl) 124 70-99 H [facility] HospitalCbrixwxWJGVIWWMK4908-51-25 01:56:00 Test Item Value Reference Range Interpretation Comments Sodium Lvl (test code = Sodium Lvl) 140 135-145 N [facility] HospitalWdmbjqnZLIZCKCGO1012-71-75 01:56:00 Test Item Value Reference Range Interpretation Comments Chloride Lvl (test code = Chloride Lvl) 103 95-109 N [facility] HospitalUdvlvhiDIPKNBKGQ7631-38-58 01:56:00 Test Item Value Reference Range Interpretation Comments CO2 (test code = CO2) 21 24-32 L [facility] HospitalDekcsbrXYRCZKAJZ4988-07-71 01:56:00 Test Item Value Reference Range Interpretation Comments Potassium Lvl (test code = Potassium 3.1 3.5-5.1 L Lvl) [facility] HospitalCbweilcUKJCYXFDU7013-26-64 01:56:00 Test Item Value Reference Range Interpretation Comments Calcium Lvl (test code = Calcium Lvl) 8.6 8.5-10.5 N [facility] HospitalTslycmyDBNFRMIRO4756-49-08 01:56:00 Test Item Value Reference Range Interpretation Comments AGAP (test code = AGAP) 19.1 10.0-20.0 N [facility] HospitalHllynaaVKOVPSTMTO8023-29-07 01:56:00 Test Item Value Reference Range Interpretation Comments Estimated % Lysis (test 1.3 See_Comment N [Au tomated message] The code = Estimated % system wh ich generated Lysis) this result tra nsmitted reference range : <=7.5. The reference r annemarie was not used to int erpret this result as normal/abnormal . [facility] HospitalSzfrzfpSBDEEEICWN8007-63-93 01:56:00 Test Item Value Reference Range Interpretation Comments K-time (test code = K-time) 2.2 min 0.6-2.3 N [facility] HospitalUniznsnPAILUHTIFO6144-99-40 01:56:00 Test Item Value Reference Range Interpretation Comments Angle (test code = Angle) 64 degrees 64-80 N [facility] HospitalNpyemghRDTNEOXYCO3165-77-54 01:56:00 Test Item Value Reference Range Interpretation Comments Max Amp (test code = Max Amp) 58 mm 52-71 N [facility] HospitalGqkhmxoKQJDVQKOLZ7956-67-44 01:56:00 Test Item Value Reference Range Interpretation Comments R-time (test code = R-time) 0.8 min 0.4-0.7 H [facility] HospitalIiuakouRQGWUVYZOA5189-67-96 01:56:00 Test Item Value Reference Range Interpretation Comments Split Point (test code = Split Point) 0.6 min [facility] HospitalRgsdypsRQJGGLYORY6947-89-75 01:56:00 Test Item Value Reference Range Interpretation Comments Rapid TEG Sample Type Citrated Whole Blood (test code = Rapid TEG Sample Type) [facility] HospitalSjlkuhqSBGKCRHNYN1126-07-73 01:56:00 Test Item Value Reference Range Interpretation Comments ACT (TEG) (test code = ACT (TEG)) 121 s 86-118 H [facility] HospitalQsshghsANTUSNYTDF0107-29-56 01:56:00 Test Item Value Reference Range Interpretation Comments G-value (test code = G-value) 6.9 5.0-11.6 N [facility] HospitalClhikvzEIKLIFUSQA0739-37-90 01:56:00 Test Item Value Reference Range Interpretation Comments Hgb (test code = Hgb) 14.8 14.0-18.0 N [facility] HospitalLhjwmdhZZQBYRYPAA1191-79-02 01:56:00 Test Item Value Reference Range Interpretation Comments RBC (test code = RBC) 5.05 4.70-6.10 N [facility] HospitalHiczzxnGLPMTRDLHK3179-26-20 01:56:00 Test Item Value Reference Range Interpretation Comments Hct (test code = Hct) 44.5 42.0-54.0 N [facility] HospitalLrptmtiIMFRESLLFK3178-67-94 01:56:00 Test Item Value Reference Range Interpretation Comments WBC (test code = WBC) 11.8 3.7-10.4 H [facility] HospitalHatmqqpDKTSDVQOZR0902-20-24 01:56:00 Test Item Value Reference Range Interpretation Comments MPV (test code = MPV) 9.2 7.4-10.4 N [facility] HospitalJrtiunbNADGQSBMTL9369-32-30 01:56:00 Test Item Value Reference Range Interpretation Comments MCHC (test code = MCHC) 33.2 32.0-36.0 N [facility] HospitalUtnlagrVLURUIRUNV6090-59-61 01:56:00 Test Item Value Reference Range Interpretation Comments MCV (test code = MCV) 88.1 80.0-94.0 N [facility] HospitalIlgjhqwRQNQGRFDHV6220-97-74 01:56:00 Test Item Value Reference Range Interpretation Comments MCH (test code = MCH) 29.3 pg 27.0-31.0 N [facility] HospitalMakzcxzJHJNWNFCVZ2674-20-18 01:56:00 Test Item Value Reference Range Interpretation Comments Platelet (test code = Platelet) 175 133-450 N [facility] HospitalQhmxenrYVVJIJGIHS4221-72-86 01:56:00 Test Item Value Reference Range Interpretation Comments RDW (test code = RDW) 12.4 11.5-14.5 N [facility] HospitalVknodesBVKOFXVTNX6716-52-64 01:56:00 Test Item Value Reference Range Interpretation Comments Lymphocytes (test code = Lymphocytes) 14.0 20.0-40.0 L [facility] HospitalKqfydevKFAEJOLEGA7581-35-25 01:56:00 Test Item Value Reference Range Interpretation Comments RBC Morph (test code = Normal (12/28/2012 N RBC Morph) 20:56:00) [facility] [facility]VjsxmeaYHYXUOLHVW3426-83-24 01:56:00 Test Item Value Reference Range Interpretation Comments Bands (test code = 6.0 See_Comment N [Automat ed message] The Bands) system which ge nerated this result transmit abdelrahman reference range : <=11.0. The reference r annemarie was not used to interpr et this result as gurpreet l/abnormal. [facility] HospitalWbajohqPBVJMKOVLG7129-42-53 01:56:00 Test Item Value Reference Range Interpretation Comments Segs (test code = Segs) 72.0 45.0-75.0 N [facility] HospitalUxtrffvPHUBKLFKOI6429-53-88 01:56:00 Test Item Value Reference Range Interpretation Comments Monocytes # (test code 0.9 See_Comment H [Aut omated message] The = Monocytes #) system which generated this result tra nsmitted reference range : <=0.8. The reference r annemarie was not used to int erpret this result as normal/abnormal . [facility] HospitalTtonhavWYIEHTIKZU5880-69-07 01:56:00 Test Item Value Reference Range Interpretation Comments Lymphocytes # (test code = Lymphocytes 1.7 1.0-5.5 N #) [facility] HospitalNaqavqwCTWYTXZARO3548-08-08 01:56:00 Test Item Value Reference Range Interpretation Comments Segs-Bands # (test code = Segs-Bands #) 9.2 1.5-8.1 H [facility] HospitalWaxqsrcDVSRLMQBCF4096-42-80 01:56:00 Test Item Value Reference Range Interpretation Comments Monocytes (test code = Monocytes) 8.0 2.0-12.0 N [facility] HospitalZldevdgWOCEKCYBFG9991-34-62 01:56:00 Test Item Value Reference Range Interpretation Comments Atypical Lymphs (test code = Atypical 0.0 N Lymphs) [facility] HospitalFoxqrvlNSOCRORMGP3284-14-06 01:56:00 Test Item Value Reference Range Interpretation Comments Plt Morph (test code = Normal (12/28/2012 N Plt Morph) 20:56:00) [facility]ZbtrzhtDXCNFCYSD2783-67-95 01:56:00 Test Item Value Reference Range Interpretation Comments O2 Sat Frankie (test code = O2 Sat Frankie) 84.6 40.0-70.0 H [facility] HospitalHvnvygsJPITXYTRM9999-61-58 01:56:00 Test Item Value Reference Range Interpretation Comments Temp Frankie (test code = Temp Frankie) 37.0 [facility] HospitalKcxbmozNIOXOPCMX8308-60-50 01:56:00 Test Item Value Reference Range Interpretation Comments BE Frankie (test code = -4 See_Comment L [Automa abdelrahman message] The BE Frankie) system which ge nerated this result transmit abdelrahman reference range : <=2. The reference range was not used to interpr et this result as gurpreet l/abnormal. [facility] HospitalAkoflvaENCUKNMJG9746-99-11 01:56:00 Test Item Value Reference Range Interpretation Comments HCO3 Frankie (test code = HCO3 Frankie) 20 22-26 L [facility] HospitalFxtlvgtNPNYZVYIN8579-00-38 01:56:00 Test Item Value Reference Range Interpretation Comments pO2 Frankie (test code = pO2 Frankie) 49 20-49 N [facility] HospitalQgrprsaPMSBTDXBT3471-32-07 01:56:00 Test Item Value Reference Range Interpretation Comments pH Frankie (test code = pH Frankei) 7.41 7.28-7.42 N [facility] HospitalAnmsjpoVUODRFLJO8160-68-41 01:56:00 Test Item Value Reference Range Interpretation Comments pCO2 Frankie (test code = pCO2 Frankie) 31 38-52 L [facility] HospitalDgdeedeHCSDRRLYH5801-93-24 01:56:00 Test Item Value Reference Range Interpretation Comments Lactic Acid Lvl (test code = Lactic 4.4 0.5-2.2 H Acid Lvl) [facility] HospitalJkaibaoEYLZICSHD4241-13-97 01:56:00 Test Item Value Reference Range Interpretation Comments Ethanol Lvl (test code = Ethanol Lvl) 79 [facility] HospitalLemuhvfVNIVREJMG2034-24-62 01:56:00 Test Item Value Reference Range Interpretation Comments Etoh (%) (test code = Etoh (%)) 0.079 [facility] HospitalCocovcqTUPISCUDI1881-34-31 01:56:00 Test Item Value Reference Range Interpretation Comments eGFR (test code = eGFR) 93 [facility] HospitalZxcekekBSZCFAJEN3537-92-27 01:56:00 Test Item Value Reference Range Interpretation Comments BUN (test code = BUN) 6 7-22 L [facility] HospitalVkhhmcyXRTKLOFIZ2455-71-62 01:56:00 Test Item Value Reference Range Interpretation Comments Creatinine Lvl (test code = Creatinine 1.1 0.5-1.4 N Lvl) [facility] HospitalUmlgcqeRQVIQGQIS7784-40-49 01:56:00 Test Item Value Reference Range Interpretation Comments Glucose Lvl (test code = Glucose Lvl) 124 70-99 H [facility] HospitalSdzyyhcKMOAGJTJJ2213-01-41 01:56:00 Test Item Value Reference Range Interpretation Comments Sodium Lvl (test code = Sodium Lvl) 140 135-145 N [facility] HospitalHumwdqgKUOTBCZDH1043-47-68 01:56:00 Test Item Value Reference Range Interpretation Comments Chloride Lvl (test code = Chloride Lvl) 103 95-109 N [facility] HospitalByywqazOECDBSOHZ7407-53-62 01:56:00 Test Item Value Reference Range Interpretation Comments CO2 (test code = CO2) 21 24-32 L [facility] HospitalPifdxrtKMYSIRSME4839-03-48 01:56:00 Test Item Value Reference Range Interpretation Comments Potassium Lvl (test code = Potassium 3.1 3.5-5.1 L Lvl) [facility] HospitalGgaspenZVRWTKXPS4256-70-49 01:56:00 Test Item Value Reference Range Interpretation Comments Calcium Lvl (test code = Calcium Lvl) 8.6 8.5-10.5 N [facility] HospitalPxzsohnHKBPJXJEX7029-25-19 01:56:00 Test Item Value Reference Range Interpretation Comments AGAP (test code = AGAP) 19.1 10.0-20.0 N [facility] HospitalUrzfgpwXNVSXMKECV1299-30-06 01:56:00 Test Item Value Reference Range Interpretation Comments Estimated % Lysis (test 1.3 See_Comment N [Au tomated message] The code = Estimated % system wh ich generated Lysis) this result tra nsmitted reference range : <=7.5. The reference r annemarie was not used to int erpret this result as normal/abnormal . [facility] HospitalBbbmwqwCUSGJPLNVH7985-23-17 01:56:00 Test Item Value Reference Range Interpretation Comments K-time (test code = K-time) 2.2 min 0.6-2.3 N [facility] HospitalDpnqdguXVESUWVUMH9187-49-71 01:56:00 Test Item Value Reference Range Interpretation Comments Angle (test code = Angle) 64 degrees 64-80 N [facility] HospitalBmlnowiBDZXLZVRJU9651-87-38 01:56:00 Test Item Value Reference Range Interpretation Comments Max Amp (test code = Max Amp) 58 mm 52-71 N [facility] HospitalCaxtjaxKYKRLRMENT4366-93-96 01:56:00 Test Item Value Reference Range Interpretation Comments R-time (test code = R-time) 0.8 min 0.4-0.7 H [place] [address]-08-31 01:56:00 Test Item Value Reference Range Interpretation Comments Split Point (test code = Split Point) 0.6 min [facility] HospitalXjhyfbvPXXKEXEEFX0495-79-51 01:56:00 Test Item Value Reference Range Interpretation Comments Rapid TEG Sample Type Citrated Whole Blood (test code = Rapid TEG Sample Type) [facility] HospitalUzxsmkaIFAVHNVENE0387-16-24 01:56:00 Test Item Value Reference Range Interpretation Comments ACT (TEG) (test code = ACT (TEG)) 121 s 86-118 H [facility] HospitalVovhcnoQHJSPLDJOH9970-30-65 01:56:00 Test Item Value Reference Range Interpretation Comments G-value (test code = G-value) 6.9 5.0-11.6 N [facility] HospitalDdkttnyDJDWCIHDVH0650-91-33 01:56:00 Test Item Value Reference Range Interpretation Comments Hgb (test code = Hgb) 14.8 14.0-18.0 N [facility] HospitalMfxfabiXSPUUMLYMX4947-60-26 01:56:00 Test Item Value Reference Range Interpretation Comments RBC (test code = RBC) 5.05 4.70-6.10 N [facility] HospitalExlbsgpEVYXPJBZXY5494-81-74 01:56:00 Test Item Value Reference Range Interpretation Comments Hct (test code = Hct) 44.5 42.0-54.0 N [facility] HospitalMbcbmakMLRAJASORV4600-74-38 01:56:00 Test Item Value Reference Range Interpretation Comments WBC (test code = WBC) 11.8 3.7-10.4 H [place] [address]-08-31 01:56:00 Test Item Value Reference Range Interpretation Comments MPV (test code = MPV) 9.2 7.4-10.4 N [facility] HospitalZygkshvSMQSKAEVRV2046-24-67 01:56:00 Test Item Value Reference Range Interpretation Comments MCHC (test code = MCHC) 33.2 32.0-36.0 N [facility] HospitalLtainyaCSDCTXBAEO8756-15-85 01:56:00 Test Item Value Reference Range Interpretation Comments MCV (test code = MCV) 88.1 80.0-94.0 N [facility] HospitalUgecnciZCOQWOLNFZ1249-69-43 01:56:00 Test Item Value Reference Range Interpretation Comments MCH (test code = MCH) 29.3 pg 27.0-31.0 N [facility] HospitalGnzmevfRVILSMECEJ1082-50-50 01:56:00 Test Item Value Reference Range Interpretation Comments Platelet (test code = Platelet) 175 133-450 N [facility] HospitalJulqyaaYVDSWSJIAR6146-89-27 01:56:00 Test Item Value Reference Range Interpretation Comments RDW (test code = RDW) 12.4 11.5-14.5 N [facility] HospitalThelmwcNAQPBCWKJX7757-67-08 01:56:00 Test Item Value Reference Range Interpretation Comments Lymphocytes (test code = Lymphocytes) 14.0 20.0-40.0 L [facility] HospitalNdjnqxjJZQIVKLTRV5970-07-47 01:56:00 Test Item Value Reference Range Interpretation Comments RBC Morph (test code = Normal (12/28/2012 N RBC Morph) 20:56:00) [facility] HospitalYlvmnyePWZCBSTXBQ8737-73-34 01:56:00 Test Item Value Reference Range Interpretation Comments Bands (test code = 6.0 See_Comment N [Automat ed message] The Bands) system which ge nerated this result transmit abdelrahman reference range : <=11.0. The reference r annemarie was not used to interpr et this result as gurpreet l/abnormal. [facility] HospitalJkxcubdIRGNVLAEDV7665-26-46 01:56:00 Test Item Value Reference Range Interpretation Comments Segs (test code = Segs) 72.0 45.0-75.0 N [facility] HospitalMrmmbfyJMBGGGAFFO4722-86-57 01:56:00 Test Item Value Reference Range Interpretation Comments Monocytes # (test code 0.9 See_Comment H [Aut omated message] The = Monocytes #) system which generated this result tra nsmitted reference range : <=0.8. The reference r annemarie was not used to int erpret this result as normal/abnormal . [facility] HospitalEmdhrapIBXOMOQVQW9353-01-82 01:56:00 Test Item Value Reference Range Interpretation Comments Lymphocytes # (test code = Lymphocytes 1.7 1.0-5.5 N #) [facility] HospitalEtizhnaYEDBMNKZKL2364-64-09 01:56:00 Test Item Value Reference Range Interpretation Comments Segs-Bands # (test code = Segs-Bands #) 9.2 1.5-8.1 H [facility] HospitalWhrynjzRKCDGNQBRL5752-37-94 01:56:00 Test Item Value Reference Range Interpretation Comments Monocytes (test code = Monocytes) 8.0 2.0-12.0 N [facility] HospitalSsotwpqWBFZYHQFQT5106-24-39 01:56:00 Test Item Value Reference Range Interpretation Comments Atypical Lymphs (test code = Atypical 0.0 N Lymphs) [facility] HospitalKxrbdcfODCLLKLQWL1828-47-22 01:56:00 Test Item Value Reference Range Interpretation Comments Plt Morph (test code = Normal (12/28/2012 N Plt Morph) 20:56:00) [facility] HospitalXdjeqicAYCNMGWGJ2057-53-68 01:56:00 Test Item Value Reference Range Interpretation Comments O2 Sat Frankie (test code = O2 Sat Frankie) 84.6 40.0-70.0 H [facility] HospitalXslvyvwRBRXLVMER1248-75-54 01:56:00 Test Item Value Reference Range Interpretation Comments Temp Frankie (test code = Temp Frankie) 37.0 [facility] HospitalRadenlgIVLRZOZCB8011-78-46 01:56:00 Test Item Value Reference Range Interpretation Comments BE Frankie (test code = -4 See_Comment L [Automa abdelrahman message] The BE Frankie) system which ge nerated this result transmit abdelrahman reference range : <=2. The reference range was not used to interpr et this result as gurpreet l/abnormal. [facility] HospitalEttvrbvMBTADLJOJ5711-87-79 01:56:00 Test Item Value Reference Range Interpretation Comments HCO3 Frankie (test code = HCO3 Frankie) 20 22-26 L [facility] HospitalFdtbyjrQJYGOCSCI6534-07-28 01:56:00 Test Item Value Reference Range Interpretation Comments pO2 Frankie (test code = pO2 Frankie) 49 20-49 N [facility] HospitalHvrfygeEMFHNZNQJ0502-72-04 01:56:00 Test Item Value Reference Range Interpretation Comments pH Frankie (test code = pH Frankie) 7.41 7.28-7.42 N [facility] HospitalVejazbjINTAZBHZL2644-19-27 01:56:00 Test Item Value Reference Range Interpretation Comments pCO2 Frankie (test code = pCO2 Frankie) 31 38-52 L [facility] HospitalVzvbtyvODYJFFKSF0918-05-44 01:56:00 Test Item Value Reference Range Interpretation Comments Lactic Acid Lvl (test code = Lactic 4.4 0.5-2.2 H Acid Lvl) [facility] HospitalOmscqcrAPODJXAYF5274-81-54 01:56:00 Test Item Value Reference Range Interpretation Comments Ethanol Lvl (test code = Ethanol Lvl) 79 [facility] HospitalJyujrwxXSVFEOIKA7926-88-01 01:56:00 Test Item Value Reference Range Interpretation Comments Etoh (%) (test code = Etoh (%)) 0.079 [facility] HospitalYelrdwrBDWKJROOO2927-31-18 01:56:00 Test Item Value Reference Range Interpretation Comments eGFR (test code = eGFR) 93 [facility] HospitalWbnllqxUZUUZUCCW2518-74-72 01:56:00 Test Item Value Reference Range Interpretation Comments BUN (test code = BUN) 6 7-22 L [facility] HospitalRvbyofgHDDWYDLBG0360-47-22 01:56:00 Test Item Value Reference Range Interpretation Comments Creatinine Lvl (test code = Creatinine 1.1 0.5-1.4 N Lvl) [facility] HospitalZciceohGJAMHGFVP0676-96-46 01:56:00 Test Item Value Reference Range Interpretation Comments Glucose Lvl (test code = Glucose Lvl) 124 70-99 H [facility] HospitalKkssbbuAOZLHUAPO2788-54-05 01:56:00 Test Item Value Reference Range Interpretation Comments Sodium Lvl (test code = Sodium Lvl) 140 135-145 N [facility] HospitalVtetyhxVBGCBMIUV0185-13-97 01:56:00 Test Item Value Reference Range Interpretation Comments Chloride Lvl (test code = Chloride Lvl) 103 95-109 N [facility] HospitalTnzfptbWBLGZOIDT9557-50-92 01:56:00 Test Item Value Reference Range Interpretation Comments CO2 (test code = CO2) 21 24-32 L [facility] HospitalKdwzaujIFEORMXGV0484-65-73 01:56:00 Test Item Value Reference Range Interpretation Comments Potassium Lvl (test code = Potassium 3.1 3.5-5.1 L Lvl) [facility] HospitalVtlzkxbQTOZBWCRY5953-82-22 01:56:00 Test Item Value Reference Range Interpretation Comments Calcium Lvl (test code = Calcium Lvl) 8.6 8.5-10.5 N [facility] HospitalRkwxovwYNGHZXJZZ8363-78-42 01:56:00 Test Item Value Reference Range Interpretation Comments AGAP (test code = AGAP) 19.1 10.0-20.0 N [facility] HospitalRocpkknBRHNNZJMCR3281-77-26 01:56:00 Test Item Value Reference Range Interpretation Comments Estimated % Lysis (test 1.3 See_Comment N [Au tomated message] The code = Estimated % system wh ich generated Lysis) this result tra nsmitted reference range : <=7.5. The reference r annemarie was not used to int erpret this result as normal/abnormal . [facility] HospitalSwofvyjFDRQINVQIT2074-29-67 01:56:00 Test Item Value Reference Range Interpretation Comments K-time (test code = K-time) 2.2 min 0.6-2.3 N [facility] HospitalLeonjfqOERDTJVVFF7990-13-89 01:56:00 Test Item Value Reference Range Interpretation Comments Angle (test code = Angle) 64 degrees 64-80 N [facility] HospitalElumufzPEMGPYALUM6328-58-36 01:56:00 Test Item Value Reference Range Interpretation Comments Max Amp (test code = Max Amp) 58 mm 52-71 N [facility] HospitalKzamcaaPGHWSGEQAS5856-47-69 01:56:00 Test Item Value Reference Range Interpretation Comments R-time (test code = R-time) 0.8 min 0.4-0.7 H [facility] HospitalCnddhhcZQPLDFEFWO1868-83-79 01:56:00 Test Item Value Reference Range Interpretation Comments Split Point (test code = Split Point) 0.6 min [facility] HospitalNjktfnwLKFPCGUPDM5870-18-01 01:56:00 Test Item Value Reference Range Interpretation Comments Rapid TEG Sample Type Citrated Whole Blood (test code = Rapid TEG Sample Type) [facility] HospitalHiedxzaBIWZYCULUW1968-44-74 01:56:00 Test Item Value Reference Range Interpretation Comments ACT (TEG) (test code = ACT (TEG)) 121 s 86-118 H [facility] HospitalXlbxyjnSWFWXBBVCA6245-87-89 01:56:00 Test Item Value Reference Range Interpretation Comments G-value (test code = G-value) 6.9 5.0-11.6 N [place] 356073-08-31 01:56:00 Test Item Value Reference Range Interpretation Comments Hgb (test code = Hgb) 14.8 14.0-18.0 N [facility] HospitalYlrhgtzLKQILXLPUY0210-68-50 01:56:00 Test Item Value Reference Range Interpretation Comments RBC (test code = RBC) 5.05 4.70-6.10 N [facility] HospitalNkqiidkBOHUOBLFZV5362-06-94 01:56:00 Test Item Value Reference Range Interpretation Comments Hct (test code = Hct) 44.5 42.0-54.0 N [facility] HospitalAhspwetFGLEXKLNXC7172-65-80 01:56:00 Test Item Value Reference Range Interpretation Comments WBC (test code = WBC) 11.8 3.7-10.4 H [facility] HospitalEzijbnuQNXCRARNLY5382-24-94 01:56:00 Test Item Value Reference Range Interpretation Comments MPV (test code = MPV) 9.2 7.4-10.4 N [facility] HospitalIouusrsUDIHBSHNKD3233-68-58 01:56:00 Test Item Value Reference Range Interpretation Comments MCHC (test code = MCHC) 33.2 32.0-36.0 N [facility] HospitalXpdhituQHRITAOTBR7870-01-04 01:56:00 Test Item Value Reference Range Interpretation Comments MCV (test code = MCV) 88.1 80.0-94.0 N [facility] HospitalEkvqjtqLXRMBUFNLB2315-22-44 01:56:00 Test Item Value Reference Range Interpretation Comments MCH (test code = MCH) 29.3 pg 27.0-31.0 N [facility] HospitalOzaybftNKUHOKIULP8724-95-85 01:56:00 Test Item Value Reference Range Interpretation Comments Platelet (test code = Platelet) 175 133-450 N [facility] HospitalCwnneqwVPZPGARXZH5350-81-96 01:56:00 Test Item Value Reference Range Interpretation Comments RDW (test code = RDW) 12.4 11.5-14.5 N [facility] HospitalTjdknreNBHWTFTRBD9842-85-76 01:56:00 Test Item Value Reference Range Interpretation Comments Lymphocytes (test code = Lymphocytes) 14.0 20.0-40.0 L [facility] HospitalGghqtxmWGQYEAGCLT1004-26-43 01:56:00 Test Item Value Reference Range Interpretation Comments RBC Morph (test code = Normal (12/28/2012 N RBC Morph) 20:56:00) [place] 356073-08-31 01:56:00 Test Item Value Reference Range Interpretation Comments Bands (test code = 6.0 See_Comment N [Automat ed message] The Bands) system which ge nerated this result transmit abdelrahman reference range : <=11.0. The reference r annemarie was not used to interpr et this result as gurpreet l/abnormal. [facility] HospitalDqmhgtjUAPQAKWYMZ2827-90-35 01:56:00 Test Item Value Reference Range Interpretation Comments Segs (test code = Segs) 72.0 45.0-75.0 N [facility] HospitalGcvqmkdHHDAOCBJUT3880-92-32 01:56:00 Test Item Value Reference Range Interpretation Comments Monocytes # (test code 0.9 See_Comment H [Aut omated message] The = Monocytes #) system which generated this result tra nsmitted reference range : <=0.8. The reference r annemarie was not used to int erpret this result as normal/abnormal . [facility] HospitalOvqlkgyOYLIBKDLHA8872-75-04 01:56:00 Test Item Value Reference Range Interpretation Comments Lymphocytes # (test code = Lymphocytes 1.7 1.0-5.5 N #) [facility] HospitalRxwbjcrDYCEVJIUIV8039-17-32 01:56:00 Test Item Value Reference Range Interpretation Comments Segs-Bands # (test code = Segs-Bands #) 9.2 1.5-8.1 H [facility] HospitalSgvpbyaOOJCQUHTLI0940-88-38 01:56:00 Test Item Value Reference Range Interpretation Comments Monocytes (test code = Monocytes) 8.0 2.0-12.0 N [facility] HospitalVnfndfhUOOCOHPODM6337-74-71 01:56:00 Test Item Value Reference Range Interpretation Comments Atypical Lymphs (test code = Atypical 0.0 N Lymphs) [facility] HospitalXflacchOTSDHFSTSP3206-11-69 01:56:00 Test Item Value Reference Range Interpretation Comments Plt Morph (test code = Normal (12/28/2012 N Plt Morph) 20:56:00) [facility] HospitalVkretodKYSDLVNQR7627-16-45 01:56:00 Test Item Value Reference Range Interpretation Comments O2 Sat Frankie (test code = O2 Sat Frankie) 84.6 40.0-70.0 H [facility] HospitalTlfugbbSNQBENOMG5487-98-09 01:56:00 Test Item Value Reference Range Interpretation Comments Temp Frankie (test code = Temp Frankie) 37.0 [facility] HospitalInsveacPMZVHBQTK3316-31-34 01:56:00 Test Item Value Reference Range Interpretation Comments BE Frankie (test code = -4 See_Comment L [Automa abdelrahman message] The BE Frankie) system which ge nerated this result transmit abdelrahman reference range : <=2. The reference range was not used to interpr et this result as gurpreet l/abnormal. [facility] HospitalGsyrqjgONLTHUDRF8682-46-73 01:56:00 Test Item Value Reference Range Interpretation Comments HCO3 Frankie (test code = HCO3 Frankie) 20 22-26 L [facility] HospitalPtyyvzwCXWUNJYFS7735-35-92 01:56:00 Test Item Value Reference Range Interpretation Comments pO2 Frankie (test code = pO2 Frankie) 49 20-49 N [facility] HospitalCfhcutyCGIXTDOUV4044-58-02 01:56:00 Test Item Value Reference Range Interpretation Comments pH Frankie (test code = pH Frankie) 7.41 7.28-7.42 N [facility] HospitalAqjcxnoFGKDMLSCZ1327-65-71 01:56:00 Test Item Value Reference Range Interpretation Comments pCO2 Frankie (test code = pCO2 Frankie) 31 38-52 L [facility] HospitalPmbxqylHIWYLSBNU8832-43-79 01:56:00 Test Item Value Reference Range Interpretation Comments Lactic Acid Lvl (test code = Lactic 4.4 0.5-2.2 H Acid Lvl) [facility] HospitalQylbjwaVKZHPPOYI5751-81-40 01:56:00 Test Item Value Reference Range Interpretation Comments Ethanol Lvl (test code = Ethanol Lvl) 79 [facility] HospitalRtabembIHGVZCKLW0824-81-44 01:56:00 Test Item Value Reference Range Interpretation Comments Etoh (%) (test code = Etoh (%)) 0.079 [facility] HospitalMjzurlrNUHKKWXBP4285-35-31 01:56:00 Test Item Value Reference Range Interpretation Comments eGFR (test code = eGFR) 93 [facility] HospitalFwmfjxmKDIOPJMFT4462-35-07 01:56:00 Test Item Value Reference Range Interpretation Comments BUN (test code = BUN) 6 7-22 L [facility] HospitalCupwwdnTVHYPYKVI2229-11-71 01:56:00 Test Item Value Reference Range Interpretation Comments Creatinine Lvl (test code = Creatinine 1.1 0.5-1.4 N Lvl) [facility] HospitalBsjslexLXCGNUHSK3504-69-85 01:56:00 Test Item Value Reference Range Interpretation Comments Glucose Lvl (test code = Glucose Lvl) 124 70-99 H [facility] HospitalFcgiwblLOLTSJTDG3394-99-44 01:56:00 Test Item Value Reference Range Interpretation Comments Sodium Lvl (test code = Sodium Lvl) 140 135-145 N [facility] HospitalEubxanqHQTLDXAOD8949-65-17 01:56:00 Test Item Value Reference Range Interpretation Comments Chloride Lvl (test code = Chloride Lvl) 103 95-109 N [facility] HospitalRsiwhaaYRJXBWDMW7535-77-71 01:56:00 Test Item Value Reference Range Interpretation Comments CO2 (test code = CO2) 21 24-32 L [facility] HospitalSksnfbzQKIXFGSNP4117-16-13 01:56:00 Test Item Value Reference Range Interpretation Comments Potassium Lvl (test code = Potassium 3.1 3.5-5.1 L Lvl) [facility] HospitalTvupvnsMTOITRZBW8351-84-67 01:56:00 Test Item Value Reference Range Interpretation Comments Calcium Lvl (test code = Calcium Lvl) 8.6 8.5-10.5 N [facility]ryojebCDXCDSTAD2998-69-48 01:56:00 Test Item Value Reference Range Interpretation Comments AGAP (test code = AGAP) 19.1 10.0-20.0 N [facility] HospitalEoqczdhJMSZXCAVZY2244-58-54 01:56:00 Test Item Value Reference Range Interpretation Comments Estimated % Lysis (test 1.3 See_Comment N [Au tomated message] The code = Estimated % system wh ich generated Lysis) this result tra nsmitted reference range : <=7.5. The reference r annemarie was not used to int erpret this result as normal/abnormal . [facility] HospitalTazdkprIOSRSEUGPJ6111-87-89 01:56:00 Test Item Value Reference Range Interpretation Comments K-time (test code = K-time) 2.2 min 0.6-2.3 N [facility] HospitalKkmwzoaYTUAHAHRYO6761-40-06 01:56:00 Test Item Value Reference Range Interpretation Comments Angle (test code = Angle) 64 degrees 64-80 N [facility] HospitalBqagtggNKODRZHKED6377-53-22 01:56:00 Test Item Value Reference Range Interpretation Comments Max Amp (test code = Max Amp) 58 mm 52-71 N [facility] HospitalKabgabaKLUKOXSIAC9331-36-53 01:56:00 Test Item Value Reference Range Interpretation Comments R-time (test code = R-time) 0.8 min 0.4-0.7 H [facility] HospitalLsezfesAUJZIUHMTX0268-21-97 01:56:00 Test Item Value Reference Range Interpretation Comments Split Point (test code = Split Point) 0.6 min [facility] HospitalEyixdzgXAQWIYIEGG1737-25-45 01:56:00 Test Item Value Reference Range Interpretation Comments Rapid TEG Sample Type Citrated Whole Blood (test code = Rapid TEG Sample Type) [facility] HospitalPblpdfrBVLUBGSYNB7319-70-53 01:56:00 Test Item Value Reference Range Interpretation Comments ACT (TEG) (test code = ACT (TEG)) 121 s 86-118 H [facility] HospitalXubgkvkETRBBHTZZW4385-08-07 01:56:00 Test Item Value Reference Range Interpretation Comments G-value (test code = G-value) 6.9 5.0-11.6 N [facility] HospitalUeiqrwcYDDNOBSSJM1635-12-27 01:56:00 Test Item Value Reference Range Interpretation Comments Hgb (test code = Hgb) 14.8 14.0-18.0 N [facility] HospitalDqdwaagBEYLFPLAHS1309-95-68 01:56:00 Test Item Value Reference Range Interpretation Comments RBC (test code = RBC) 5.05 4.70-6.10 N [facility] HospitalQuailqfAKJSMFMUHL4643-91-56 01:56:00 Test Item Value Reference Range Interpretation Comments Hct (test code = Hct) 44.5 42.0-54.0 N [facility] HospitalJdedxjaTZMGNAYCEV4721-90-33 01:56:00 Test Item Value Reference Range Interpretation Comments WBC (test code = WBC) 11.8 3.7-10.4 H [facility] HospitalRyndtktMDNVGWBNJN5619-48-29 01:56:00 Test Item Value Reference Range Interpretation Comments MPV (test code = MPV) 9.2 7.4-10.4 N [facility] HospitalDglpsjfCLEPRJDKYH7204-58-48 01:56:00 Test Item Value Reference Range Interpretation Comments MCHC (test code = MCHC) 33.2 32.0-36.0 N [facility] HospitalInwxixiPETXHQWSJS5876-61-86 01:56:00 Test Item Value Reference Range Interpretation Comments MCV (test code = MCV) 88.1 80.0-94.0 N [facility] HospitalAdcwdtyCXMEFIBWLW2495-45-27 01:56:00 Test Item Value Reference Range Interpretation Comments MCH (test code = MCH) 29.3 pg 27.0-31.0 N [facility] HospitalWpxyrsqRBWPFKIINS9398-45-55 01:56:00 Test Item Value Reference Range Interpretation Comments Platelet (test code = Platelet) 175 133-450 N [facility] HospitalSxeuevlHGPAPVYPDS4249-49-42 01:56:00 Test Item Value Reference Range Interpretation Comments RDW (test code = RDW) 12.4 11.5-14.5 N [facility] HospitalPmeuuilHFZWJXNQPE8391-65-30 01:56:00 Test Item Value Reference Range Interpretation Comments Lymphocytes (test code = Lymphocytes) 14.0 20.0-40.0 L [facility] HospitalTkjtnixKPAIUZXQQD8104-39-06 01:56:00 Test Item Value Reference Range Interpretation Comments RBC Morph (test code = Normal (12/28/2012 N RBC Morph) 20:56:00) [facility] HospitalOtythhpTIRPEKFQDI2588-34-63 01:56:00 Test Item Value Reference Range Interpretation Comments Bands (test code = 6.0 See_Comment N [Automat ed message] The Bands) system which ge nerated this result transmit abdelrahman reference range : <=11.0. The reference r annemarie was not used to interpr et this result as gurpreet l/abnormal. [facility] HospitalStclubiQPZTGBACPK2689-14-94 01:56:00 Test Item Value Reference Range Interpretation Comments Segs (test code = Segs) 72.0 45.0-75.0 N [facility] HospitalFnpvyrxIHYVVNLFUP5306-89-81 01:56:00 Test Item Value Reference Range Interpretation Comments Monocytes # (test code 0.9 See_Comment H [Aut omated message] The = Monocytes #) system which generated this result tra nsmitted reference range : <=0.8. The reference r annemarie was not used to int erpret this result as normal/abnormal . [facility] HospitalXcpydsaQWTKNMHOUP7089-56-32 01:56:00 Test Item Value Reference Range Interpretation Comments Lymphocytes # (test code = Lymphocytes 1.7 1.0-5.5 N #) [facility] HospitalBohpyvxZQTUTDOSDB2081-49-84 01:56:00 Test Item Value Reference Range Interpretation Comments Segs-Bands # (test code = Segs-Bands #) 9.2 1.5-8.1 H [facility] HospitalWdmdkheZXJJDHYGHZ4031-82-88 01:56:00 Test Item Value Reference Range Interpretation Comments Monocytes (test code = Monocytes) 8.0 2.0-12.0 N [facility] HospitalPehydzmVZHWEZVCZV0313-89-66 01:56:00 Test Item Value Reference Range Interpretation Comments Atypical Lymphs (test code = Atypical 0.0 N Lymphs) [facility] HospitalBscyjnmZPXIULJSGA7154-16-87 01:56:00 Test Item Value Reference Range Interpretation Comments Plt Morph (test code = Normal (12/28/2012 N Plt Morph) 20:56:00) [facility] HospitalAiltpsoHMTPFZODE8099-22-74 01:56:00 Test Item Value Reference Range Interpretation Comments O2 Sat Frankie (test code = O2 Sat Frankie) 84.6 40.0-70.0 H [facility] HospitalOqltlunTIFELZEGH3344-55-79 01:56:00 Test Item Value Reference Range Interpretation Comments Temp Frankie (test code = Temp Frankie) 37.0 [facility] HospitalNkttlrtPPJJORAVZ9753-21-07 01:56:00 Test Item Value Reference Range Interpretation Comments BE Frankie (test code = -4 See_Comment L [Automa abdelrahman message] The BE Frankie) system which ge nerated this result transmit abdelrahman reference range : <=2. The reference range was not used to interpr et this result as gurpreet l/abnormal. [facility] HospitalXkrrzmhOBEXDQBKH7081-32-65 01:56:00 Test Item Value Reference Range Interpretation Comments HCO3 Frankie (test code = HCO3 Frankie) 20 22-26 L [facility] HospitalTzfbggvDPABAYDRM6448-66-52 01:56:00 Test Item Value Reference Range Interpretation Comments pO2 Frankie (test code = pO2 Frankie) 49 20-49 N [facility] HospitalFcvwmzvXEUYLHAHT4024-91-68 01:56:00 Test Item Value Reference Range Interpretation Comments pH Frankie (test code = pH Frankie) 7.41 7.28-7.42 N [facility] HospitalPqfjkadSYMSCWJUT4110-89-45 01:56:00 Test Item Value Reference Range Interpretation Comments pCO2 Frankie (test code = pCO2 Frankie) 31 38-52 L [facility] HospitalUbrasbrUJZDZOYPQ1136-00-83 01:56:00 Test Item Value Reference Range Interpretation Comments Lactic Acid Lvl (test code = Lactic 4.4 0.5-2.2 H Acid Lvl) [facility] HospitalLvkkaadVTABGPMIA1106-76-85 01:56:00 Test Item Value Reference Range Interpretation Comments Ethanol Lvl (test code = Ethanol Lvl) 79 [facility] HospitalNkqtiudWZOTLCPEQ6138-32-26 01:56:00 Test Item Value Reference Range Interpretation Comments Etoh (%) (test code = Etoh (%)) 0.079 [facility] HospitalWxwxpdaUSTRZEWEB9839-42-95 01:56:00 Test Item Value Reference Range Interpretation Comments eGFR (test code = eGFR) 93 [facility] HospitalXgdatdoTQMLWOIQH5496-51-25 01:56:00 Test Item Value Reference Range Interpretation Comments BUN (test code = BUN) 6 7-22 L [facility] HospitalCvldxgaFNLOTQOPH8185-83-05 01:56:00 Test Item Value Reference Range Interpretation Comments Creatinine Lvl (test code = Creatinine 1.1 0.5-1.4 N Lvl) [facility] HospitalUhtimkjSYYYUXHYH3743-38-03 01:56:00 Test Item Value Reference Range Interpretation Comments Glucose Lvl (test code = Glucose Lvl) 124 70-99 H [facility] HospitalLlxcxwlKRZVANSED0405-13-47 01:56:00 Test Item Value Reference Range Interpretation Comments Sodium Lvl (test code = Sodium Lvl) 140 135-145 N [facility] HospitalWnuhyocVSYJLJXPO8678-31-03 01:56:00 Test Item Value Reference Range Interpretation Comments Chloride Lvl (test code = Chloride Lvl) 103 95-109 N [facility] HospitalSkocoqoHQPIGXJYQ6177-96-92 01:56:00 Test Item Value Reference Range Interpretation Comments CO2 (test code = CO2) 21 24-32 L [facility] HospitalGzithnjVLGCGJHQJ2307-49-11 01:56:00 Test Item Value Reference Range Interpretation Comments Potassium Lvl (test code = Potassium 3.1 3.5-5.1 L Lvl) [facility] HospitalUyhswrnRADSHOFTI9831-49-67 01:56:00 Test Item Value Reference Range Interpretation Comments Calcium Lvl (test code = Calcium Lvl) 8.6 8.5-10.5 N [facility] HospitalPebonahJAEZYVRAA4898-22-73 01:56:00 Test Item Value Reference Range Interpretation Comments AGAP (test code = AGAP) 19.1 10.0-20.0 N [facility] HospitalQfnssqaTZZLTTWDRK6296-01-29 01:56:00 Test Item Value Reference Range Interpretation Comments Estimated % Lysis (test 1.3 See_Comment N [Au tomated message] The code = Estimated % system wh ich generated Lysis) this result tra nsmitted reference range : <=7.5. The reference r annemarie was not used to int erpret this result as normal/abnormal . [facility] HospitalAabqcmcVVFGHUFFMU8903-29-86 01:56:00 Test Item Value Reference Range Interpretation Comments K-time (test code = K-time) 2.2 min 0.6-2.3 N [place] [address]-08-31 01:56:00 Test Item Value Reference Range Interpretation Comments Angle (test code = Angle) 64 degrees 64-80 N [facility] HospitalXvyjbvcEWUJXLEEIU7790-92-91 01:56:00 Test Item Value Reference Range Interpretation Comments Max Amp (test code = Max Amp) 58 mm 52-71 N [facility] HospitalIblumdxUXYRROJATE8287-53-73 01:56:00 Test Item Value Reference Range Interpretation Comments R-time (test code = R-time) 0.8 min 0.4-0.7 H [place] [address]-08-31 01:56:00 Test Item Value Reference Range Interpretation Comments Split Point (test code = Split Point) 0.6 min [facility] HospitalOyjczuwWLSOEMZMHY2468-64-74 01:56:00 Test Item Value Reference Range Interpretation Comments Rapid TEG Sample Type Citrated Whole Blood (test code = Rapid TEG Sample Type) [facility] HospitalUzxyveoOMYSCVVWPZ6023-87-99 01:56:00 Test Item Value Reference Range Interpretation Comments ACT (TEG) (test code = ACT (TEG)) 121 s 86-118 H [facility] HospitalJqgqjejNQDDVDTNOM7842-77-45 01:56:00 Test Item Value Reference Range Interpretation Comments G-value (test code = G-value) 6.9 5.0-11.6 N [facility] HospitalOukajkuEULAVRLXJG6832-30-77 01:56:00 Test Item Value Reference Range Interpretation Comments Hgb (test code = Hgb) 14.8 14.0-18.0 N [facility] HospitalNgiidbvGVGDPLCLHA9228-39-24 01:56:00 Test Item Value Reference Range Interpretation Comments RBC (test code = RBC) 5.05 4.70-6.10 N [place] [address]-08-31 01:56:00 Test Item Value Reference Range Interpretation Comments Hct (test code = Hct) 44.5 42.0-54.0 N [place] [address]-08-31 01:56:00 Test Item Value Reference Range Interpretation Comments WBC (test code = WBC) 11.8 3.7-10.4 H [facility] HospitalIizhjmnTOYRXNKQZP7432-83-85 01:56:00 Test Item Value Reference Range Interpretation Comments MPV (test code = MPV) 9.2 7.4-10.4 N [facility] HospitalBtmebhtFGWUOCZMJT7923-82-03 01:56:00 Test Item Value Reference Range Interpretation Comments MCHC (test code = MCHC) 33.2 32.0-36.0 N [facility] HospitalDaexwjlSJUNZMAGAZ9387-05-33 01:56:00 Test Item Value Reference Range Interpretation Comments MCV (test code = MCV) 88.1 80.0-94.0 N [facility] HospitalVniyxsgHLNHFDDHNS4276-78-97 01:56:00 Test Item Value Reference Range Interpretation Comments MCH (test code = MCH) 29.3 pg 27.0-31.0 N [facility] HospitalCppqeqrNBIUAQKOHA6219-32-79 01:56:00 Test Item Value Reference Range Interpretation Comments Platelet (test code = Platelet) 175 133-450 N [facility] HospitalLhuoyjfWWWGQYISZF1324-03-45 01:56:00 Test Item Value Reference Range Interpretation Comments RDW (test code = RDW) 12.4 11.5-14.5 N [facility] HospitalXwrribsWHXDJYFIYR1729-92-71 01:56:00 Test Item Value Reference Range Interpretation Comments Lymphocytes (test code = Lymphocytes) 14.0 20.0-40.0 L [facility] HospitalBjzqavuFIPJVTFQHY1977-94-12 01:56:00 Test Item Value Reference Range Interpretation Comments RBC Morph (test code = Normal (12/28/2012 N RBC Morph) 20:56:00) [facility] HospitalKuhdugvOZOMOPRHNL9273-51-29 01:56:00 Test Item Value Reference Range Interpretation Comments Bands (test code = 6.0 See_Comment N [Automat ed message] The Bands) system which ge nerated this result transmit abdelrahman reference range : <=11.0. The reference r annemarie was not used to interpr et this result as gurpreet l/abnormal. [facility] HospitalRijmkxkUCPGZUATWI6154-70-59 01:56:00 Test Item Value Reference Range Interpretation Comments Segs (test code = Segs) 72.0 45.0-75.0 N [facility] HospitalJvvztkvBIFYOTOYAX0116-58-19 01:56:00 Test Item Value Reference Range Interpretation Comments Monocytes # (test code 0.9 See_Comment H [Aut omated message] The = Monocytes #) system which generated this result tra nsmitted reference range : <=0.8. The reference r annemarie was not used to int erpret this result as normal/abnormal . [facility] HospitalAvymrhkEMYCXBEMRI1885-51-43 01:56:00 Test Item Value Reference Range Interpretation Comments Lymphocytes # (test code = Lymphocytes 1.7 1.0-5.5 N #) [facility] HospitalLyikpghSISZJEGPEB1427-10-06 01:56:00 Test Item Value Reference Range Interpretation Comments Segs-Bands # (test code = Segs-Bands #) 9.2 1.5-8.1 H [facility] HospitalCrcfxcnLXGELAFAYV7161-71-33 01:56:00 Test Item Value Reference Range Interpretation Comments Monocytes (test code = Monocytes) 8.0 2.0-12.0 N [facility] HospitalVuxjlahVJPJDZQOBJ8211-13-53 01:56:00 Test Item Value Reference Range Interpretation Comments Atypical Lymphs (test code = Atypical 0.0 N Lymphs) [facility] HospitalHeublibIFUYIMXHSO3087-92-39 01:56:00 Test Item Value Reference Range Interpretation Comments Plt Morph (test code = Normal (12/28/2012 N Plt Morph) 20:56:00) [facility] HospitalEpsfgybTLGOIQUXO4679-51-75 01:56:00 Test Item Value Reference Range Interpretation Comments O2 Sat Frankie (test code = O2 Sat Frankie) 84.6 40.0-70.0 H [facility] HospitalFtwnmewYWXLIUFNL0379-47-99 01:56:00 Test Item Value Reference Range Interpretation Comments Temp Frankie (test code = Temp Frankie) 37.0 [facility] HospitalSnmhpakEMUKQJEXP7183-06-22 01:56:00 Test Item Value Reference Range Interpretation Comments BE Frankie (test code = -4 See_Comment L [Automa abdelrahman message] The BE Frankie) system which ge nerated this result transmit abdelrahman reference range : <=2. The reference range was not used to interpr et this result as gurpreet l/abnormal. [facility] HospitalRaqrdzhWBLMJAOUV7183-98-39 01:56:00 Test Item Value Reference Range Interpretation Comments HCO3 Frankie (test code = HCO3 Frankie) 20 22-26 L [facility] HospitalDxakayvDGZLCWMNU5547-35-18 01:56:00 Test Item Value Reference Range Interpretation Comments pO2 Frankie (test code = pO2 Frankie) 49 20-49 N [facility] HospitalZcxiajqMURTQSLQH1897-87-40 01:56:00 Test Item Value Reference Range Interpretation Comments pH Frankie (test code = pH Frankie) 7.41 7.28-7.42 N [facility] HospitalFriiymtUFSLAKQGJ8040-11-91 01:56:00 Test Item Value Reference Range Interpretation Comments pCO2 Frankie (test code = pCO2 Frankie) 31 38-52 L [facility] HospitalWueaxkjVUFSUVJGK3282-29-10 01:56:00 Test Item Value Reference Range Interpretation Comments Lactic Acid Lvl (test code = Lactic 4.4 0.5-2.2 H Acid Lvl) [facility] HospitalLxejsatSNIHQZGIK5813-69-95 01:56:00 Test Item Value Reference Range Interpretation Comments Ethanol Lvl (test code = Ethanol Lvl) 79 [facility] HospitalMxbebcjROAFDMUBX0941-21-97 01:56:00 Test Item Value Reference Range Interpretation Comments Etoh (%) (test code = Etoh (%)) 0.079 [facility] HospitalOliuuizIXZIEFSYC5732-72-07 01:56:00 Test Item Value Reference Range Interpretation Comments eGFR (test code = eGFR) 93 [facility] HospitalEabvuahFVQAKJXNO3891-98-37 01:56:00 Test Item Value Reference Range Interpretation Comments BUN (test code = BUN) 6 7-22 L [facility] HospitalBhjimywYQFLMVZWK2364-79-89 01:56:00 Test Item Value Reference Range Interpretation Comments Creatinine Lvl (test code = Creatinine 1.1 0.5-1.4 N Lvl) [facility] HospitalXwvdqvtUORTRBMML8719-24-65 01:56:00 Test Item Value Reference Range Interpretation Comments Glucose Lvl (test code = Glucose Lvl) 124 70-99 H [facility] HospitalScdpssjYQPCWNQPA2480-00-43 01:56:00 Test Item Value Reference Range Interpretation Comments Sodium Lvl (test code = Sodium Lvl) 140 135-145 N [facility] HospitalNaquurgBXRNQGYHQ3832-63-94 01:56:00 Test Item Value Reference Range Interpretation Comments Chloride Lvl (test code = Chloride Lvl) 103 95-109 N [facility] HospitalOdnjsyxQVWGNFVSA7576-04-49 01:56:00 Test Item Value Reference Range Interpretation Comments CO2 (test code = CO2) 21 24-32 L [facility] HospitalEuzleorNSPBMUGHG8722-22-83 01:56:00 Test Item Value Reference Range Interpretation Comments Potassium Lvl (test code = Potassium 3.1 3.5-5.1 L Lvl) [facility] HospitalRiwjmevRBBPNRSRE3249-60-44 01:56:00 Test Item Value Reference Range Interpretation Comments Calcium Lvl (test code = Calcium Lvl) 8.6 8.5-10.5 N [facility] HospitalTwqhdowSMXEYYTJK8234-39-66 01:56:00 Test Item Value Reference Range Interpretation Comments AGAP (test code = AGAP) 19.1 10.0-20.0 N [facility] HospitalZmbilmpZLWPLAWRIJ3993-86-20 01:56:00 Test Item Value Reference Range Interpretation Comments Estimated % Lysis (test 1.3 See_Comment N [Au tomated message] The code = Estimated % system wh ich generated Lysis) this result tra nsmitted reference range : <=7.5. The reference r annemarie was not used to int erpret this result as normal/abnormal . [facility] HospitalIoumeojIDAYMDFKKS6754-87-45 01:56:00 Test Item Value Reference Range Interpretation Comments K-time (test code = K-time) 2.2 min 0.6-2.3 N [facility] HospitalZmoehgxWOYRYUZAJV4667-31-19 01:56:00 Test Item Value Reference Range Interpretation Comments Angle (test code = Angle) 64 degrees 64-80 N [facility] HospitalXjuulkoJDLRETJFFY3917-04-99 01:56:00 Test Item Value Reference Range Interpretation Comments Max Amp (test code = Max Amp) 58 mm 52-71 N [facility] HospitalDcuaythYSFMINYQXQ5534-94-71 01:56:00 Test Item Value Reference Range Interpretation Comments R-time (test code = R-time) 0.8 min 0.4-0.7 H [facility] HospitalPceqzssSVRIZDIHCJ9824-50-38 01:56:00 Test Item Value Reference Range Interpretation Comments Split Point (test code = Split Point) 0.6 min [facility] HospitalQowmvgdAINFZNLLBW0944-70-44 01:56:00 Test Item Value Reference Range Interpretation Comments Rapid TEG Sample Type Citrated Whole Blood (test code = Rapid TEG Sample Type) [facility] HospitalNzlycdrVYIRXMUJLO4554-20-43 01:56:00 Test Item Value Reference Range Interpretation Comments ACT (TEG) (test code = ACT (TEG)) 121 s 86-118 H [facility] HospitalVuctftgGVIDLIEULW2221-46-22 01:56:00 Test Item Value Reference Range Interpretation Comments G-value (test code = G-value) 6.9 5.0-11.6 N [facility] HospitalHuybvvcHFJSXQPXVN6631-68-30 01:56:00 Test Item Value Reference Range Interpretation Comments Hgb (test code = Hgb) 14.8 14.0-18.0 N [place] 356073-08-31 01:56:00 Test Item Value Reference Range Interpretation Comments RBC (test code = RBC) 5.05 4.70-6.10 N [facility] HospitalUufkyafCEKCFEAVLL7558-65-99 01:56:00 Test Item Value Reference Range Interpretation Comments Hct (test code = Hct) 44.5 42.0-54.0 N [facility] HospitalSwmwtdeDJPVLWRZAY7756-23-30 01:56:00 Test Item Value Reference Range Interpretation Comments WBC (test code = WBC) 11.8 3.7-10.4 H [facility] HospitalRhaugpmPIUGHDCJYS4621-48-12 01:56:00 Test Item Value Reference Range Interpretation Comments MPV (test code = MPV) 9.2 7.4-10.4 N [facility] HospitalJclsvtaFJIXJRNCYX3465-40-93 01:56:00 Test Item Value Reference Range Interpretation Comments MCHC (test code = MCHC) 33.2 32.0-36.0 N [facility] HospitalTabdttmTQBINJVVGI0719-81-95 01:56:00 Test Item Value Reference Range Interpretation Comments MCV (test code = MCV) 88.1 80.0-94.0 N [facility] HospitalAlyvbbbXUCCICNIRR4332-64-13 01:56:00 Test Item Value Reference Range Interpretation Comments MCH (test code = MCH) 29.3 pg 27.0-31.0 N [facility] HospitalPzbvochWQRHASBBOV3940-76-31 01:56:00 Test Item Value Reference Range Interpretation Comments Platelet (test code = Platelet) 175 133-450 N [facility] HospitalWdollzzXQURNQJJPM8822-09-48 01:56:00 Test Item Value Reference Range Interpretation Comments RDW (test code = RDW) 12.4 11.5-14.5 N [facility] HospitalKupvaaxWITDBVHSTA3083-47-86 01:56:00 Test Item Value Reference Range Interpretation Comments Lymphocytes (test code = Lymphocytes) 14.0 20.0-40.0 L [facility] HospitalVhksyvjVLSVAWJNMM7920-25-21 01:56:00 Test Item Value Reference Range Interpretation Comments RBC Morph (test code = Normal (12/28/2012 N RBC Morph) 20:56:00) [facility] HospitalNgbmzjoPHIUKJFMHW6695-54-13 01:56:00 Test Item Value Reference Range Interpretation Comments Bands (test code = 6.0 See_Comment N [Automat ed message] The Bands) system which ge nerated this result transmit abdelrahman reference range : <=11.0. The reference r annemarie was not used to interpr et this result as gurpreet l/abnormal. [facility] HospitalVykssrxSDPPIBRKQT4774-32-19 01:56:00 Test Item Value Reference Range Interpretation Comments Segs (test code = Segs) 72.0 45.0-75.0 N [facility] HospitalBoffwbcVNUMXHHHLY3460-11-66 01:56:00 Test Item Value Reference Range Interpretation Comments Monocytes # (test code 0.9 See_Comment H [Aut omated message] The = Monocytes #) system which generated this result tra nsmitted reference range : <=0.8. The reference r annemarie was not used to int erpret this result as normal/abnormal . [facility] HospitalFaijiigVLEOJXEGEW5016-89-21 01:56:00 Test Item Value Reference Range Interpretation Comments Lymphocytes # (test code = Lymphocytes 1.7 1.0-5.5 N #) [facility] HospitalDpzqnqlSHCRTRUKGA0222-43-10 01:56:00 Test Item Value Reference Range Interpretation Comments Segs-Bands # (test code = Segs-Bands #) 9.2 1.5-8.1 H [facility] HospitalXgperrqDFMNCJDIQN6221-05-73 01:56:00 Test Item Value Reference Range Interpretation Comments Monocytes (test code = Monocytes) 8.0 2.0-12.0 N [facility] HospitalOwfgmeePMWBDDNIKD7872-50-66 01:56:00 Test Item Value Reference Range Interpretation Comments Atypical Lymphs (test code = Atypical 0.0 N Lymphs) [facility] HospitalQuublckAZVUMGDYAO7010-46-09 01:56:00 Test Item Value Reference Range Interpretation Comments Plt Morph (test code = Normal (12/28/2012 N Plt Morph) 20:56:00) [facility]DjilxdoZIJTVQZGI2280-38-17 01:56:00 Test Item Value Reference Range Interpretation Comments O2 Sat Frankie (test code = O2 Sat Frankie) 84.6 40.0-70.0 H [facility] HospitalKgsvyorQLESOJOBC2467-12-15 01:56:00 Test Item Value Reference Range Interpretation Comments Temp Frankie (test code = Temp Frankie) 37.0 [facility] HospitalIihuferPUNNZNMYX2349-78-32 01:56:00 Test Item Value Reference Range Interpretation Comments BE Frankie (test code = -4 See_Comment L [Automa abdelrahman message] The BE Frankie) system which ge nerated this result transmit abdelrahman reference range : <=2. The reference range was not used to interpr et this result as gurpreet l/abnormal. [facility] HospitalMqmyazdKRKPGPTSZ6609-93-47 01:56:00 Test Item Value Reference Range Interpretation Comments HCO3 Frankie (test code = HCO3 Franike) 20 22-26 L [facility] HospitalGsmskeeJAYCHRRTU3247-47-43 01:56:00 Test Item Value Reference Range Interpretation Comments pO2 Frankie (test code = pO2 Frankie) 49 20-49 N [facility] HospitalHllmwntOIAIYZYRV8426-67-68 01:56:00 Test Item Value Reference Range Interpretation Comments pH Frankie (test code = pH Frankie) 7.41 7.28-7.42 N [facility] HospitalUvvgoxnCVXICKWCV3282-31-02 01:56:00 Test Item Value Reference Range Interpretation Comments pCO2 Frankie (test code = pCO2 Frankie) 31 38-52 L [facility] HospitalAwwkswnLIZGBYNKT6362-03-95 01:56:00 Test Item Value Reference Range Interpretation Comments Lactic Acid Lvl (test code = Lactic 4.4 0.5-2.2 H Acid Lvl) [facility] HospitalXxtwtpbIBUJUMSZU8232-52-19 01:56:00 Test Item Value Reference Range Interpretation Comments Ethanol Lvl (test code = Ethanol Lvl) 79 [facility] HospitalNlhqhyzQFYLINVSA1767-52-58 01:56:00 Test Item Value Reference Range Interpretation Comments Etoh (%) (test code = Etoh (%)) 0.079 [facility] HospitalNpfyrcgVKPLTRJCN3329-65-62 01:56:00 Test Item Value Reference Range Interpretation Comments eGFR (test code = eGFR) 93 [facility] HospitalByisopwZBTAXQZFJ2059-24-74 01:56:00 Test Item Value Reference Range Interpretation Comments BUN (test code = BUN) 6 7-22 L [facility] HospitalXyyacqzERCPLQJIX3171-30-02 01:56:00 Test Item Value Reference Range Interpretation Comments Creatinine Lvl (test code = Creatinine 1.1 0.5-1.4 N Lvl) [facility] HospitalHyafxmzQOAQNCFIZ9524-16-57 01:56:00 Test Item Value Reference Range Interpretation Comments Glucose Lvl (test code = Glucose Lvl) 124 70-99 H [facility] HospitalNtmiwjaJIXBXKYXK2284-19-67 01:56:00 Test Item Value Reference Range Interpretation Comments Sodium Lvl (test code = Sodium Lvl) 140 135-145 N [facility] HospitalRzrngnuTDLLRZEBO6129-74-90 01:56:00 Test Item Value Reference Range Interpretation Comments Chloride Lvl (test code = Chloride Lvl) 103 95-109 N [facility] HospitalUybtrklEFUHEVLCM5816-47-86 01:56:00 Test Item Value Reference Range Interpretation Comments CO2 (test code = CO2) 21 24-32 L [facility] HospitalRqhubjkWBPLAHROP9749-15-33 01:56:00 Test Item Value Reference Range Interpretation Comments Potassium Lvl (test code = Potassium 3.1 3.5-5.1 L Lvl) [facility] HospitalHgcwagpSBRBKFIJB3504-60-39 01:56:00 Test Item Value Reference Range Interpretation Comments Calcium Lvl (test code = Calcium Lvl) 8.6 8.5-10.5 N [facility] HospitalQygbkndRCIVKAYWH3851-75-40 01:56:00 Test Item Value Reference Range Interpretation Comments AGAP (test code = AGAP) 19.1 10.0-20.0 N [facility] HospitalNoaoqqhRINDPVLRNS9575-08-58 01:56:00 Test Item Value Reference Range Interpretation Comments Estimated % Lysis (test 1.3 See_Comment N [Au tomated message] The code = Estimated % system wh ich generated Lysis) this result tra nsmitted reference range : <=7.5. The reference r annemarie was not used to int erpret this result as normal/abnormal . [facility] HospitalXblterjOREUYDZVWI6368-90-68 01:56:00 Test Item Value Reference Range Interpretation Comments K-time (test code = K-time) 2.2 min 0.6-2.3 N [facility] HospitalIlsiupwGHDFUWVVPC6815-26-11 01:56:00 Test Item Value Reference Range Interpretation Comments Angle (test code = Angle) 64 degrees 64-80 N [facility] HospitalWkzoriyJFYHRMHRUY6613-52-58 01:56:00 Test Item Value Reference Range Interpretation Comments Max Amp (test code = Max Amp) 58 mm 52-71 N [facility] HospitalWjhfitdEBCZYKYQNN1342-78-98 01:56:00 Test Item Value Reference Range Interpretation Comments R-time (test code = R-time) 0.8 min 0.4-0.7 H [facility] HospitalNzybxfcDLWUPGTSDD5522-30-00 01:56:00 Test Item Value Reference Range Interpretation Comments Split Point (test code = Split Point) 0.6 min [facility] HospitalFfhuljyPTMFZBHHBK8320-78-65 01:56:00 Test Item Value Reference Range Interpretation Comments Rapid TEG Sample Type Citrated Whole Blood (test code = Rapid TEG Sample Type) [facility] HospitalQmrnopyEALFHSMDDW7498-84-89 01:56:00 Test Item Value Reference Range Interpretation Comments ACT (TEG) (test code = ACT (TEG)) 121 s 86-118 H [facility] HospitalXqxouxaVUHKDTWFYY6696-10-54 01:56:00 Test Item Value Reference Range Interpretation Comments G-value (test code = G-value) 6.9 5.0-11.6 N [facility] HospitalYmesuokRVVXLWLLAD4354-54-50 01:56:00 Test Item Value Reference Range Interpretation Comments Hgb (test code = Hgb) 14.8 14.0-18.0 N [facility] HospitalPogwidiENHDWMNMAB1758-21-14 01:56:00 Test Item Value Reference Range Interpretation Comments RBC (test code = RBC) 5.05 4.70-6.10 N [facility] HospitalTksuyadJTPNRZGDQB2015-26-86 01:56:00 Test Item Value Reference Range Interpretation Comments Hct (test code = Hct) 44.5 42.0-54.0 N [facility] HospitalYkhqldqBTEKYTFYPK3467-70-72 01:56:00 Test Item Value Reference Range Interpretation Comments WBC (test code = WBC) 11.8 3.7-10.4 H [facility] HospitalGtepphdJDEDEEKZQV9592-65-15 01:56:00 Test Item Value Reference Range Interpretation Comments MPV (test code = MPV) 9.2 7.4-10.4 N [facility] HospitalDivgkjqCSDAYFDXFG5510-24-18 01:56:00 Test Item Value Reference Range Interpretation Comments MCHC (test code = MCHC) 33.2 32.0-36.0 N [facility] HospitalMevprfyFDLHQZHNEV7579-01-16 01:56:00 Test Item Value Reference Range Interpretation Comments MCV (test code = MCV) 88.1 80.0-94.0 N [facility] HospitalZchpigpOVUYYAOSVA3418-84-37 01:56:00 Test Item Value Reference Range Interpretation Comments MCH (test code = MCH) 29.3 pg 27.0-31.0 N [facility] HospitalHxrhfaaXAQRJTQYJI9542-22-76 01:56:00 Test Item Value Reference Range Interpretation Comments Platelet (test code = Platelet) 175 133-450 N [facility] HospitalDqmuvltWRVWEMQGBH3629-10-27 01:56:00 Test Item Value Reference Range Interpretation Comments RDW (test code = RDW) 12.4 11.5-14.5 N [facility] HospitalSaouaouIHFHLGZXAR1906-65-15 01:56:00 Test Item Value Reference Range Interpretation Comments Lymphocytes (test code = Lymphocytes) 14.0 20.0-40.0 L [facility] HospitalVcudohnXENUMGLYXZ4048-19-10 01:56:00 Test Item Value Reference Range Interpretation Comments RBC Morph (test code = Normal (12/28/2012 N RBC Morph) 20:56:00) [facility] HospitalPpeuqmmOKPLCFSWDD1159-69-73 01:56:00 Test Item Value Reference Range Interpretation Comments Bands (test code = 6.0 See_Comment N [Automat ed message] The Bands) system which ge nerated this result transmit abdelrahman reference range : <=11.0. The reference r annemarie was not used to interpr et this result as gurpreet l/abnormal. [facility] HospitalCkngqlbONBJVKWFWE6829-31-03 01:56:00 Test Item Value Reference Range Interpretation Comments Segs (test code = Segs) 72.0 45.0-75.0 N [facility] HospitalAiahycrXIZAITGCDS6770-44-11 01:56:00 Test Item Value Reference Range Interpretation Comments Monocytes # (test code 0.9 See_Comment H [Aut omated message] The = Monocytes #) system which generated this result tra nsmitted reference range : <=0.8. The reference r annemarie was not used to int erpret this result as normal/abnormal . [facility] HospitalGrbycifYQYRAGKODF5072-23-95 01:56:00 Test Item Value Reference Range Interpretation Comments Lymphocytes # (test code = Lymphocytes 1.7 1.0-5.5 N #) [facility] HospitalHxcrnhgNTBJEXHSTO5154-20-19 01:56:00 Test Item Value Reference Range Interpretation Comments Segs-Bands # (test code = Segs-Bands #) 9.2 1.5-8.1 H [facility] HospitalNlmvqqlROFKEPRZEE2822-21-64 01:56:00 Test Item Value Reference Range Interpretation Comments Monocytes (test code = Monocytes) 8.0 2.0-12.0 N [facility] HospitalPoudnviPHZKZKVGGW1388-27-90 01:56:00 Test Item Value Reference Range Interpretation Comments Atypical Lymphs (test code = Atypical 0.0 N Lymphs) [facility] HospitalZeiaontZFNLPMRHDS4966-19-53 01:56:00 Test Item Value Reference Range Interpretation Comments Plt Morph (test code = Normal (12/28/2012 N Plt Morph) 20:56:00) [facility] HospitalAweorvuGPDUVXUDE7034-80-42 01:56:00 Test Item Value Reference Range Interpretation Comments O2 Sat Frankie (test code = O2 Sat Frankie) 84.6 40.0-70.0 H [facility] HospitalNkhmkmeSYQHGGIFA1757-02-02 01:56:00 Test Item Value Reference Range Interpretation Comments Temp Frankie (test code = Temp Frankie) 37.0 [facility] HospitalRbjwypuZYHMBIWKM9532-88-24 01:56:00 Test Item Value Reference Range Interpretation Comments BE Frankie (test code = -4 See_Comment L [Automa abdelrahman message] The BE Frankie) system which ge nerated this result transmit abdelrahman reference range : <=2. The reference range was not used to interpr et this result as gurpreet l/abnormal. [facility] HospitalIjyvsmhCWMZEPXLS6115-23-69 01:56:00 Test Item Value Reference Range Interpretation Comments HCO3 Frankie (test code = HCO3 Frankie) 20 22-26 L [facility] HospitalVlkrkeoYLQQPPSWB1229-84-15 01:56:00 Test Item Value Reference Range Interpretation Comments pO2 Frankie (test code = pO2 Frankie) 49 20-49 N [facility] HospitalFnfwxxbSIFBYBJXH4454-31-28 01:56:00 Test Item Value Reference Range Interpretation Comments pH Frankie (test code = pH Frankie) 7.41 7.28-7.42 N [facility] HospitalFrrrsgwGKXCUTDSN7648-23-33 01:56:00 Test Item Value Reference Range Interpretation Comments pCO2 Frankie (test code = pCO2 Frankie) 31 38-52 L [facility] HospitalJftcdarRNKXETPRD0170-65-26 01:56:00 Test Item Value Reference Range Interpretation Comments Lactic Acid Lvl (test code = Lactic 4.4 0.5-2.2 H Acid Lvl) [facility] HospitalLdkgwmkCTSWPBXEG2276-48-65 01:56:00 Test Item Value Reference Range Interpretation Comments Ethanol Lvl (test code = Ethanol Lvl) 79 [facility] HospitalXsavghpFIEHIMTIR8314-78-32 01:56:00 Test Item Value Reference Range Interpretation Comments Etoh (%) (test code = Etoh (%)) 0.079 [facility] HospitalXdtncigJEJWJYYPG3581-24-68 01:56:00 Test Item Value Reference Range Interpretation Comments eGFR (test code = eGFR) 93 [facility] HospitalTvgbtpeBWCJHCADH3614-56-35 01:56:00 Test Item Value Reference Range Interpretation Comments BUN (test code = BUN) 6 7-22 L [facility] HospitalZnwndghDMXSRRTCP1445-45-46 01:56:00 Test Item Value Reference Range Interpretation Comments Creatinine Lvl (test code = Creatinine 1.1 0.5-1.4 N Lvl) [facility] HospitalUjabmiiDWQRMHZRY4653-89-36 01:56:00 Test Item Value Reference Range Interpretation Comments Glucose Lvl (test code = Glucose Lvl) 124 70-99 H [facility] HospitalYiyfzkqQTWIYMUNV5007-43-82 01:56:00 Test Item Value Reference Range Interpretation Comments Sodium Lvl (test code = Sodium Lvl) 140 135-145 N [facility] HospitalWlkvhmtPDCHUICQU5911-09-62 01:56:00 Test Item Value Reference Range Interpretation Comments Chloride Lvl (test code = Chloride Lvl) 103 95-109 N [facility] HospitalXmhomfpZIFDGLJKE6408-77-61 01:56:00 Test Item Value Reference Range Interpretation Comments CO2 (test code = CO2) 21 24-32 L [facility] HospitalCqmteudAZUXLBHUM6134-40-49 01:56:00 Test Item Value Reference Range Interpretation Comments Potassium Lvl (test code = Potassium 3.1 3.5-5.1 L Lvl) [facility] HospitalFqiofokVBJNMRKWC8575-43-32 01:56:00 Test Item Value Reference Range Interpretation Comments Calcium Lvl (test code = Calcium Lvl) 8.6 8.5-10.5 N [facility] HospitalNgivjidBDJTDAZSL8838-21-13 01:56:00 Test Item Value Reference Range Interpretation Comments AGAP (test code = AGAP) 19.1 10.0-20.0 N [facility] HospitalJaqdatuZEHYMANENR0140-96-22 01:56:00 Test Item Value Reference Range Interpretation Comments Estimated % Lysis (test 1.3 See_Comment N [Au tomated message] The code = Estimated % system wh ich generated Lysis) this result tra nsmitted reference range : <=7.5. The reference r annemarie was not used to int erpret this result as normal/abnormal . [facility] HospitalVmfqzdiXKCRJLVRSZ7071-01-20 01:56:00 Test Item Value Reference Range Interpretation Comments K-time (test code = K-time) 2.2 min 0.6-2.3 N [facility] HospitalWrywytqLBGBJTYTQD4239-60-79 01:56:00 Test Item Value Reference Range Interpretation Comments Angle (test code = Angle) 64 degrees 64-80 N [facility] HospitalPojjyadACMFLAGMXN0734-90-56 01:56:00 Test Item Value Reference Range Interpretation Comments Max Amp (test code = Max Amp) 58 mm 52-71 N [facility] HospitalNoehfxeADQUGNPBCP9871-33-47 01:56:00 Test Item Value Reference Range Interpretation Comments R-time (test code = R-time) 0.8 min 0.4-0.7 H [place] [address]-08-31 01:56:00 Test Item Value Reference Range Interpretation Comments Split Point (test code = Split Point) 0.6 min [facility] HospitalYjiwbgnJVBUMDCTZQ7353-22-36 01:56:00 Test Item Value Reference Range Interpretation Comments Rapid TEG Sample Type Citrated Whole Blood (test code = Rapid TEG Sample Type) [facility] HospitalNagzwfzKJHUXAQFGG9677-68-04 01:56:00 Test Item Value Reference Range Interpretation Comments ACT (TEG) (test code = ACT (TEG)) 121 s 86-118 H [facility] HospitalRxieefnZIFHACRCFN7527-08-95 01:56:00 Test Item Value Reference Range Interpretation Comments G-value (test code = G-value) 6.9 5.0-11.6 N [facility] HospitalKcnbvaeNFJYCGWWHR9366-84-81 01:56:00 Test Item Value Reference Range Interpretation Comments Hgb (test code = Hgb) 14.8 14.0-18.0 N [facility] HospitalXsjcpcmQWJCXOIGKA3699-51-52 01:56:00 Test Item Value Reference Range Interpretation Comments RBC (test code = RBC) 5.05 4.70-6.10 N [facility] HospitalVtknaugLNKMAYHGUH9344-12-59 01:56:00 Test Item Value Reference Range Interpretation Comments Hct (test code = Hct) 44.5 42.0-54.0 N [facility] HospitalSzdlamfXNJIGITUTE1611-02-42 01:56:00 Test Item Value Reference Range Interpretation Comments WBC (test code = WBC) 11.8 3.7-10.4 H [facility] HospitalDxejznyYUDXDUXVEI5186-14-21 01:56:00 Test Item Value Reference Range Interpretation Comments MPV (test code = MPV) 9.2 7.4-10.4 N [facility] HospitalNctfefcLDWRIXGWBN1594-46-64 01:56:00 Test Item Value Reference Range Interpretation Comments MCHC (test code = MCHC) 33.2 32.0-36.0 N [facility] HospitalAihdqajJVTZTJWRMV1099-32-97 01:56:00 Test Item Value Reference Range Interpretation Comments MCV (test code = MCV) 88.1 80.0-94.0 N [facility] HospitalMsqgvytMGPZBVADTH3188-50-08 01:56:00 Test Item Value Reference Range Interpretation Comments MCH (test code = MCH) 29.3 pg 27.0-31.0 N [facility] HospitalKbuxchtFNZGRVRXBG1179-19-45 01:56:00 Test Item Value Reference Range Interpretation Comments Platelet (test code = Platelet) 175 133-450 N [facility] HospitalUubianmNPUOULNTLF6114-31-78 01:56:00 Test Item Value Reference Range Interpretation Comments RDW (test code = RDW) 12.4 11.5-14.5 N [facility] HospitalEvfoztsREUWZHDYNT3485-77-98 01:56:00 Test Item Value Reference Range Interpretation Comments Lymphocytes (test code = Lymphocytes) 14.0 20.0-40.0 L [facility] HospitalObcsiowPWXFEOCSUT3230-44-74 01:56:00 Test Item Value Reference Range Interpretation Comments RBC Morph (test code = Normal (12/28/2012 N RBC Morph) 20:56:00) [facility] HospitalVgahayqNONRBALVPK2382-69-32 01:56:00 Test Item Value Reference Range Interpretation Comments Bands (test code = 6.0 See_Comment N [Automat ed message] The Bands) system which ge nerated this result transmit abdelrahman reference range : <=11.0. The reference r annemarie was not used to interpr et this result as gurpreet l/abnormal. [facility] HospitalBfkchmxPBQFPVQTKP9534-69-19 01:56:00 Test Item Value Reference Range Interpretation Comments Segs (test code = Segs) 72.0 45.0-75.0 N [facility] HospitalVbudcgrZUOAYZFKAW2682-46-11 01:56:00 Test Item Value Reference Range Interpretation Comments Monocytes # (test code 0.9 See_Comment H [Aut omated message] The = Monocytes #) system which generated this result tra nsmitted reference range : <=0.8. The reference r annemarie was not used to int erpret this result as normal/abnormal . [facility] HospitalDnpsglwVBEEDVOPEU4592-12-90 01:56:00 Test Item Value Reference Range Interpretation Comments Lymphocytes # (test code = Lymphocytes 1.7 1.0-5.5 N #) [facility] HospitalYlxbhbbXCZDKELLUK1585-74-64 01:56:00 Test Item Value Reference Range Interpretation Comments Segs-Bands # (test code = Segs-Bands #) 9.2 1.5-8.1 H [facility] HospitalWfokuykLDCIANWDRN8832-46-13 01:56:00 Test Item Value Reference Range Interpretation Comments Monocytes (test code = Monocytes) 8.0 2.0-12.0 N [facility] HospitalTmbqowsGIGLGHYFDT6385-61-25 01:56:00 Test Item Value Reference Range Interpretation Comments Atypical Lymphs (test code = Atypical 0.0 N Lymphs) [facility] HospitalJkcutioCVHIICKVDD5715-85-51 01:56:00 Test Item Value Reference Range Interpretation Comments Plt Morph (test code = Normal (12/28/2012 N Plt Morph) 20:56:00) [facility]
[2022-06-26 17:07] VITALS: TEMP 98
[2022-06-26 17:08] VITALS: BP 146/98; O2SAT 98
== END 2022-06-26 15:58 | disposition home or self-care (01) ==
LOC: ER 15:02 → MERGE 15:02 → ER 15:58
DX: F55.8 Abuse of other non-psychoactive substances (principal); S01.81XA Laceration without foreign body of other part of head, initial encounter; F20.9 Schizophrenia, unspecified
CPT/HCPCS: 99283